=== PATIENT | female | born 1990 | race Caucasian/White ===

== ENCOUNTER 2016-11-26 13:04 | Outpatient (CLI) | payer MEDICAID ==
[~2016-11-26] VITALS: Ht 167.6 cm; Wt 63.7 kg
[~2016-11-26 13:04] MED LIST: ACHD5005 PO; ALPR1TAB2 PO; ARPZ10T; ASEN5TAB7 SL; AZIT-21 PO; AZTH250C PO; BENZ100C18 PO; BREA1EAC5 MC; BSP5T PO; CEFP250T2 PO; CEPH500C PO; CLAR-19 PO; CLIN-62 PO; CLIN300C11 PO; CLON0.5T3 PO; CLON1TAB3 PO; CLON1TAB36 PO; CLON2TAB16; CLON2TAB45 PO; CPH250CIP PO; CTLP20T PO; CYCL10TA9 PO; DCS100C PO; DICY10CA26 PO; DOXY100C2 PO; DULO30CA PO; DULO30CA48 PO; ESCI20TA38 PO; ESCI5TAB PO; FLUC150T PO; HYDR-1231 PO; HYDR-3720 PO; HYDR-3812 PO; HYDR-757 PO; HYDR1TAB PO; IBP800T PO; KETO75CA PO; LIDO15SO2 MM; LMT25T; LORA-405 PO; LURA20TA PO; META800T5 PO; METH4TAB PO; METR500T21 PO; MIRT30TA6 PO; NAPR-243 PO; NAPR500T3 PO; NAPR550T PO; NITR-65 PO; NITR100C3 PO; ONDA4TAB8 PO; PHEN-640 PO; PNV91TAB3 PO; PRAZ1CAP2 PO; PRD20T PO; PRED5TAB PO; PREN1TAB19 PO; QUET25TA33 PO; QUET300T3 PO; RSP3T PO; SULF1TAB35 PO; THR25T PO; TRAM-21 PO; TRAM50TA2 PO; TRM50T PO; ZLP10T PO; birth control patch
--- OUTSIDE RECORDS SUMMARY | 2016-11-26 13:07 | XMS REPORT | Continuity of Care Document ---
Author Author [facility] Organization [facility] Address Unknown Phone Unavailable Care Team Providers Care Land Surveyor Assistant Name Role Phone Unknown, Unknown PCP Unavailable Source Comments Some departments are not documenting in the electronic medical record. If you do not see the information that you expected, contact Release of Information in the Health Information Management department at [phone] for further assistance in locating additional records.[facility] Active Allergies and Adverse Reactions Not on File Current Medications Not on file Active Problems Not on file Social History Tobacco Use Types Packs/Day Years Used Date Never Assessed Plan of Care Health Maintenance Due Date Last Done Comments Physical (Comprehensive) 1997 Exam Hpv Vaccines (#1) 2001 Pertussis Vaccine 2001 Tetanus Vaccine 2007 Cervical Cancer Screening 2011 Influenza Vaccine 07/14/2016 Results from Last 3 Months Not on file
[2016-11-26 13:35] VITALS: BP 117/74
[2016-11-26 14:10] LABS: BASOPHILS % (AUTO) 0 % (0-10); EOSINOPHILS # (AUTO) 0.2 10^3/uL (0.0-0.3); EOSINOPHILS % (AUTO) 2 % (0-10); LYMPHOCYTES # (AUTO) 2.8 X 10^3 (1.0-4.0); LYMPHOCYTES % (AUTO) 20 % (12-44); MEAN CORPUSCULAR HEMOGLOBIN 30 PG (25-34); MEAN CORPUSCULAR HGB CONC 33 G/DL (32-36); MEAN CORPUSCULAR VOLUME 90 FL (80-99); MEAN PLATELET VOLUME 10.5 FL (7.4-10.4); MONOCYTES # (AUTO) 1.1 X 10^3 (0.0-1.0); MONOCYTES % (AUTO) 8 % (0-12); NEUTROPHILS # (AUTO) 9.7 X 10^3 (1.8-7.8); NEUTROPHILS % (AUTO) 70 % (42-75); PLATELET COUNT 301 10^3/uL (130-400); RED BLOOD COUNT 3.93 10^6/uL (4.35-5.85); RED CELL DISTRIBUTION WIDTH 13.7 % (10.0-14.5); WHITE BLOOD COUNT 13.8 10^3/uL (4.3-11.0)
[2016-11-26 14:22] LABS: ALANINE AMINOTRANSFERASE 9 U/L (0-55); ALBUMIN 3.4 G/DL (3.2-4.5); ANION GAP 11 MMOL/L (5-14); ASPARTATE AMINO TRANSFERASE 15 U/L (5-34); BILIRUBIN,TOTAL 0.4 MG/DL (0.1-1.0); BLOOD UREA NITROGEN 6 MG/DL (7-18); BUN/CREATININE RATIO 11; CALCIUM 8.9 MG/DL (8.5-10.1); CARBON DIOXIDE 21 MMOL/L (21-32); CHLORIDE 106 MMOL/L (98-107); CREATININE SERUM 0.56 MG/DL (0.60-1.30); GFR ESTIMATED > 60; GLUCOSE 104 MG/DL (70-105); POTASSIUM 3.7 MMOL/L (3.6-5.0); SODIUM 138 MMOL/L (135-145); TOTAL PROTEIN 6.1 G/DL (6.4-8.2)
--- NOTE | 2016-11-28 08:37 | Physician Query-Final Dx ---
VIC CUELLO 11/28/16 0837: Clinic Account Progress/Dx Physician Query: Please give diagnosis Date of Service Nov 26, 2016 at 13:04 JENNIFER MAYES MD 11/28/16 1145: Clinic Account Progress/Dx DIAGNOSIS: Diagnosis false labor VIC CUELLO Nov 28, 2016 08:37 JENNIFER MAYES MD Nov 28, 2016 11:45
[2016-11-30] MEDS ORDERED: ALPR0.5T7 PO (07:52)
[2016-11-30] MEDS ORDERED: OXYC-465 PO (07:52)
[2016-11-30] MEDS ORDERED: DOCU100C37 PO (07:52)
== END 2016-11-26 15:11 | disposition home or self-care (01) ==
LOC: WSo 13:04 → LDRP 13:04 → WSo 15:11
PROVIDERS: ATTEND Obstetrics & Gynecology
DX: O47.03 False labor before 37 completed weeks of gestation, third trimester (principal); Z3A.36 36 weeks gestation of pregnancy
CPT/HCPCS: 36415; 80053; 85025; 99213

== ENCOUNTER 2016-11-29 13:20 | Inpatient (IN) | payer MEDICAID ==
[~2016-11-29] VITALS: Ht 167.6 cm; Wt 64.4 kg
[2016-11-29] VITALS (31 sets, daily range): BP systolic 109–147; BP diastolic 58–86
[2016-11-29] MEDS: WITCH HAZEL(TUCKS) 40 EA JAR ONE (03:45)
--- OUTSIDE RECORDS SUMMARY | 2016-11-29 13:23 | XMS REPORT | Continuity of Care Document ---
Author Author [facility] Organization [facility] Address Unknown Phone Unavailable Care Team Providers Care Licensed Reactor Operator Name Role Phone Unknown, Unknown PCP Unavailable Source Comments Some departments are not documenting in the electronic medical record. If you do not see the information that you expected, contact Release of Information in the Health Information Management department at [phone] for further assistance in locating additional records.[facility] Active Allergies and Adverse Reactions Not [...]
[2016-11-29] MEDS ORDERED: RANI150T15 PO (13:44)
[2016-11-29] MEDS ORDERED: OXYTOCIN/NORMAL SALINE 500 ML IV SCH ×2 (16:59→17:02)
[2016-11-29] MEDS ORDERED: D5 LR IV SOLUTION 1,000 ML IV SCH (16:59)
[2016-11-29] MEDS ORDERED: metroNIDAZOLE 500 MG (FLAGYL) TAB PO NR (17:00)
--- NOTE | 2016-11-29 17:11 | History & Physical ---
History and Physical this patient is a 25-year-old white female with an EDC of 2 717 putting her at 37 weeks gestation. She presented with complaint of gushes of clear fluid. She denies bleeding. She was seen yesterday in clinic and found to be 3 cm dilated with an CLEVE of 75 previous delivery at 37 weeks gestation. She complains of contractions and increasing pressure. Her exam now is between 5 and 6 cm dilated 80 percent effaced +1 to +2 station vertex presentation with a firm positive vaginal prep nitrazine was negative. Patient had GBS culture after 35 weeks gestation that was negative. Allergies are to penicillin, Depakote, diclofenac Medications are vitamins and Zantac Past medical history, past surgical history, obstetric history, family histories , and social histories are per the antepartum record HEENT exam is normal except for very poor dentition Neck is supple no lymphadenopathy no thyromegaly Abdomen is gravid soft nontender nondistended Extremities show no clubbing cyanosis. There is no Homans sign. Pelvic exam reveals a greenish watery discharge in the vaginal vault. Fern prep of that discharge was positive for ferning. Test on admission per the nurse was a nitrazine negative. Was not repeated. Cervical exam is 5-6 and Ms. dilated 80 percent effaced +1 station to +2 station vertex presentation. Monitor shows irregular contractions with normal heart rate pattern Lab work is pending Assessment and plan 37 week with PROM admitted now for management. We will allow an epidural and augmented with Pitocin patient has made cervical change since presentation and since last exam yesterday. Anticipation is for vaginal delivery. PROM at 37 weeks gestation Allergies and Home Medications Allergies Coded Allergies: Penicillins (Unverified Allergy, Mild, PT ABLE TO TAKE ANCEF, 03/26/14) diclofenac (Unverified Allergy, Unknown, 01/21/15) divalproex sodium (Verified Allergy, Unknown, 08/26/15) Home Medications Pnv95/Ferrous Fumarate/FA 1 Each Tablet 1 EACH PO DAILY (Reported) Ranitidine HCl 150 Mg Tablet 150 MG PO DAILY (Reported) JENNIFER MAYES MD Nov 29, 2016 5:11 pm
[2016-11-29] MEDS ORDERED: MEASLES,MUMPS,RUBELLA 1 EA INJ SC ONE (17:15)
[2016-11-29] MEDS ORDERED: TETANUS,DIPTH,PERTUSS P/F (BOOSTRIX) 0.5 ML VIAL IM ONE (17:15)
[2016-11-29 17:31] LABS: BASOPHILS % (AUTO) 0 % (0-10); EOSINOPHILS # (AUTO) 0.2 10^3/uL (0.0-0.3); EOSINOPHILS % (AUTO) 2 % (0-10); LYMPHOCYTES # (AUTO) 3.6 X 10^3 (1.0-4.0); LYMPHOCYTES % (AUTO) 24 % (12-44); MEAN CORPUSCULAR HEMOGLOBIN 30 PG (25-34); MEAN CORPUSCULAR HGB CONC 34 G/DL (32-36); MEAN CORPUSCULAR VOLUME 89 FL (80-99); MEAN PLATELET VOLUME 10.7 FL (7.4-10.4); MONOCYTES # (AUTO) 1.3 X 10^3 (0.0-1.0); MONOCYTES % (AUTO) 9 % (0-12); NEUTROPHILS # (AUTO) 9.6 X 10^3 (1.8-7.8); NEUTROPHILS % (AUTO) 65 % (42-75); PLATELET COUNT 281 10^3/uL (130-400); RED BLOOD COUNT 3.87 10^6/uL (4.35-5.85); RED CELL DISTRIBUTION WIDTH 13.7 % (10.0-14.5); WHITE BLOOD COUNT 14.8 10^3/uL (4.3-11.0)
[2016-11-29 17:52] LABS: BAND NEUTROPHILS 1 %; BASOPHILS % (MANUAL) 0 %; EOSINOPHILS % (MANUAL) 4 %; LYMPHOCYTES % (MANUAL) 24 %; NEUTROPHILS % (MANUAL) 70 %
[2016-11-29] MEDS ORDERED: SUFENTA 1 MCG/ML BUPIVA 0.1% 100 ML ONE (17:52)
[2016-11-29] MEDS ORDERED: fentaNYL INJECTION 100 MCG/2 ML AMP ONE (18:16)
[2016-11-29] MEDS ORDERED: BUPIVACAINE 0.25% 30 ML (SENSORCAINE) VIAL ONE (18:17)
[2016-11-29] MEDS ORDERED: LACTATED RINGERS 1,000 ML IV ONE ×2 (18:42)
[2016-11-29] MEDS ORDERED: EPIDURAL (SUFENTANIL 1 MCG/ML BUPIVACAINE 0.1%) 100 ML EPI PRN (18:45)
[2016-11-29] MEDS ORDERED: ONDANSETRON 4 MG/2 ML (SDV) Z0FRAN IV PRN (18:45)
[2016-11-29] MEDS ORDERED: NALOXONE 0.4 MG/ML 1 ML (NARCAN) VIAL IV PRN (18:45)
[2016-11-29] MEDS ORDERED: fentaNYL INJECTION 100 MCG/2 ML AMP INJ ONE (18:45)
[2016-11-29] MEDS ORDERED: BUPIVACAINE 0.25% 30 ML (SENSORCAINE) VIAL INJ ONE (18:45)
[2016-11-29] MEDS: DOCUSATE SODIUM 100 MG (COLACE) CAP PO SCH (21:00)
[2016-11-29] MEDS ORDERED: LIDOCAINE/EPI 1%-1:200,000 (XYLOCAINE) 30 ML VIAL ONE (23:31)
[2016-11-30] VITALS (12 sets, daily range): BP systolic 102–125; BP diastolic 58–73
[2016-11-30] MEDS: oxyCODONE/APAP 10/325MG (PERCOCET 10) TABLET PO PRN ×4 (01:03→17:21)
[2016-11-30] MEDS: WITCH HAZEL(TUCKS) 40 EA JAR ONE (03:45)
[2016-11-30] MEDS: BENZOCAINE/MENTHOL (DERMOPLAST) 56 ML CAN TP PRN (03:45)
--- NOTE | 2016-11-30 07:50 | PROCEDURE REPORT ---
PROCEDURE PHYSICIAN: JENNIFER MAYES DATE OF PROCEDURE: 11/29/2016 DATE OF DICTATION: 11/29/2016 DELIVERY NOTE: The patient delivered by term spontaneous vaginal delivery of a viable female with Apgars of 10 and 10 at 1 and 5 minutes respectfully, weight 6 pounds, 8 ounces. Delivery time was 2342. The infant delivered over a midline episiotomy that was performed at the patient's request when the presenting part was and the patient could not push it through the perineum. Episiotomy was performed. The head delivered with the next push as did a loop of umbilical cord was a true knot. The infant was bulb suctioned on delivery of the head and again on completion of delivery. The umbilical cord, when pulseless, was doubly clamped, father cut the cord and the baby was passed to mom's abdomen. Umbilical cord blood was obtained. As the patient had experienced several deep Decels and there was a true knot noted in the cord at the time of delivery an umbilical cord arterial blood pH was obtained and was 7.27 The placenta delivered spontaneously Auguste. It was a quite large with a 3 vessel cord. There was a fairly significant amount of bleeding initially with the delivery of the placenta. That responded nicely to IV Pitocin and fundal massage. The cervix, vagina, rectum and perineum were examined and found intact except for the midline episiotomy that was repaired with a single suture of 3-0 Vicryl in the usual manner. Sponge and needle counts were correct on completion of delivery and repair. The mom remained in the LDR for the recovery as did the baby. The estimated blood loss was around 500 mL. The patient tolerated the procedure well. Job ID: [id number] Dictated Date: 11/30/2016 00:03:58 Housing Installer Date: 11/30/2016 07:47:21 / charis [place]
--- NOTE | 2016-11-30 07:51 | Progress Note-Standard ---
Standard Progress Note Progress Notes/Assess & Plan Progress/Assessment & Plan patient is without complaint except for anxiety. She is ambulating, voiding, tolerating by mouth well, denies chest pain, denies shortness of breath, denies nausea vomiting, denies headache, has good pain control. She is requesting to resume her antiviral anxiety medication Vital signs are stable. Patient is afebrile. Vital Signs Date Time Temp Pulse Resp B/P Pulse Ox O2 Delivery O2 Flow Rate FiO2 11/29/16 22:45 97 18 119/71 100 11/29/16 22:15 97 18 119/71 100 11/29/16 22:00 82 18 115/65 99 11/29/16 21:45 90 18 115/66 100 11/29/16 21:30 98.7 91 18 113/69 100 11/29/16 21:15 91 18 131/68 100 11/29/16 21:00 88 18 121/76 98 11/29/16 20:45 90 18 120/74 99 11/29/16 20:30 96 18 112/66 98 11/29/16 20:15 102 18 111/68 98 11/29/16 20:00 88 18 147/86 99 11/29/16 19:45 98.1 108 18 118/75 100 11/29/16 19:00 115 18 124/60 97 Room Air 11/29/16 18:56 107 122/64 97 Room Air 11/29/16 18:53 106 119/66 97 Room Air 11/29/16 18:50 101 114/62 98 Room Air 11/29/16 18:45 102 18 110/58 Room Air 11/29/16 18:43 102 110/58 98 Room Air 11/29/16 18:40 109 18 112/60 98 Room Air 11/29/16 18:35 95 18 123/70 98 Room Air 11/29/16 18:30 105 18 119/77 Room Air 11/29/16 18:00 105 18 109/63 Room Air 11/29/16 17:30 97.4 11/29/16 14:30 106 117/68 Room Air 11/29/16 14:20 112 116/66 Room Air 11/29/16 14:10 120 116/65 Room Air 11/29/16 14:00 112 121/64 Room Air 11/29/16 13:38 96.7 127 18 119/70 Room Air I & O 11/30/16 07:00 Intake Total 900 ml Balance 900 ml fundus is firm below the umbilicus and nontender. Extremities show no clubbing or cyanosis. There is no Homans sign. Assessment and plan day number 1 status post term spontaneous vaginal delivery at 37 weeks gestation. Patient has a history of anxiety for which she was taking 1 mg of Xanax every 8 hours. We will resume her Xanax at half that dose. Patient will receive routine post convalescence care today and likely will be discharged home tomorrow JENNIFER MAYES MD Nov 30, 2016 7:51 am
[2016-11-30] MEDS ORDERED: OXYC-465 PO (07:52)
[2016-11-30] MEDS ORDERED: ALPR0.5T7 PO (07:52)
[2016-11-30] MEDS ORDERED: DOCU100C37 PO (07:52)
--- NOTE | 2016-11-30 07:53 | Discharge Instructions ---
Discharge Instructions Discharge Medications New, Converted or Re-Newed RX: RX on Chart Patient Instructions Patient Instructions: as directed Return to The Hospital For: as directed Activity & Diet Discharge Diet: No Restrictions Activity as Tolerated: No Orders-Post D/C & Referrals Follow Up Appt: Call to make follow up appt. for patient in 4 weeks. Activity Per routine post vaginal delivery instructions. Please call in RX to patient pharmacy. Diet as tolerated Patient may shower or tub bathe as desired. JENNIFER MAYES MD Nov 30, 2016 7:53 am
[2016-11-30] MEDS: DOCUSATE SODIUM 100 MG (COLACE) CAP PO SCH ×2 (08:34→21:51)
[2016-11-30] MEDS: ALPRAZolam 0.5 MG (XANAX) TAB PO PRN ×2 (09:51→18:47)
--- NOTE | 2016-11-30 10:55 | Anesthesia-Regional Post-Op ---
Regional Patient Condition Mental Status: Alert, Oriented x3 Circulation: Same as Pre-Op Headache: Absent Sensation: Full Recovery Motor Block: Absent Post Op Complications Complications None Follow Up Care/Instructions Patient Instructions None needed. Anesthesia/Patient Condition Patient is doing well, no complaints, stable vital signs, no apparent adverse anesthesia problems. No complications reported per nursing. DAGMAR MAY CRNA Nov 30, 2016 10:55
[2016-12-01] MEDS: oxyCODONE/APAP 10/325MG (PERCOCET 10) TABLET PO PRN ×2 (02:34→11:15)
[2016-12-01 03:30] VITALS: BP 99/58
--- NOTE | 2016-12-01 07:49 | Progress Note-Standard ---
Standard Progress Note Progress Notes/Assess & Plan Progress/Assessment & Plan patient is without complaint except for anxiety. She is ambulating, voiding, tolerating by mouth well, denies chest pain, denies shortness of breath, denies nausea vomiting, denies headache, has good pain control. She is requesting to resume her antiviral anxiety medication Vital signs are stable. Patient is afebrile. Vital Signs Date Time Temp Pulse Resp B/P Pulse Ox O2 Delivery O2 Flow Rate FiO2 11/29/16 22:45 97 18 119/71 100 11/29/16 22:15 97 18 119/71 100 11/29/16 22:00 82 18 115/65 99 11/29/16 21:45 90 18 115/66 100 11/29/16 21:30 98.7 91 18 113/69 100 11/29/16 21:15 91 18 131/68 100 11/29/16 21:00 88 18 121/76 98 11/29/16 20:45 90 18 120/74 99 11/29/16 20:30 96 18 112/66 98 11/29/16 20:15 102 18 111/68 98 11/29/16 20:00 88 18 147/86 99 11/29/16 19:45 98.1 108 18 118/75 100 11/29/16 19:00 115 18 124/60 97 Room Air 11/29/16 18:56 107 122/64 97 Room Air 11/29/16 18:53 106 119/66 97 Room Air 11/29/16 18:50 101 114/62 98 Room Air 11/29/16 18:45 102 18 110/58 Room Air 11/29/16 18:43 102 110/58 98 Room Air 11/29/16 18:40 109 18 112/60 98 Room Air 11/29/16 18:35 95 18 123/70 98 Room Air 11/29/16 18:30 105 18 119/77 Room Air 11/29/16 18:00 105 18 109/63 Room Air 11/29/16 17:30 97.4 11/29/16 14:30 106 117/68 Room Air 11/29/16 14:20 112 116/66 Room Air 11/29/16 14:10 120 116/65 Room Air 11/29/16 14:00 112 121/64 Room Air 11/29/16 13:38 96.7 127 18 119/70 Room Air I & O 11/30/16 07:00 Intake Total 900 ml Balance 900 ml fundus is firm below the umbilicus and nontender. Extremities show no clubbing or cyanosis. There is no Homans sign. Assessment and plan day number 1 status post term spontaneous vaginal delivery at 37 weeks gestation. Patient has a history of anxiety for which she was taking 1 mg of Xanax every 8 hours. We will resume her Xanax at half that dose. Patient will receive routine post convalescence care today and likely will be discharged home tomorrow December 01, 2016 Patient is without complaint. She is ambulating,Voiding, tolerating by mouth well, denies chest pain, denies shortness of breath, denies nausea vomiting, indicates that her anxiety is well controlled with her Xanax, she has good pain control, she is requesting discharge home. Vital Signs Date Time Temp Pulse Resp B/P Pulse Ox O2 Delivery O2 Flow Rate FiO2 12/01/16 03:30 96.9 87 16 99/58 98 Room Air 11/30/16 21:30 97.0 97 16 102/67 Room Air 11/30/16 16:20 97.8 90 16 113/73 Room Air 11/30/16 12:55 97.9 81 16 102/71 Room Air 11/30/16 08:15 97.6 87 16 108/68 Room Air Vital signs are stable. Patient is afebrile. Fundus is firm below the umbilicus and nontender. Extremities show no clubbing or cyanosis. There is no Homans sign. There is some pretibial pitting edema that is normal. Assessment and plan day number 2 status post term spontaneous vaginal delivery at 37 weeks gestation. Patient is doing well. We will discharge home and she will follow-up in clinic Final Diagnosis term spontaneous vaginal delivery at 37 weeks gestation JENNIFER MAYES MD Dec 01, 2016 7:49 am
[2016-12-01] MEDS: ALPRAZolam 0.5 MG (XANAX) TAB PO PRN (08:24)
[2016-12-01] MEDS: DOCUSATE SODIUM 100 MG (COLACE) CAP PO SCH (08:24)
[2016-12-01 08:26] VITALS: BP 107/74
[2016-12-01] MEDS ORDERED: TETANUS,DIPTH,PERTUSS P/F (BOOSTRIX) 0.5 ML VIAL IM ONE (12:02)
[2016-12-01] MEDS: BENZOCAINE/MENTHOL (DERMOPLAST) 56 ML CAN TP PRN (12:13)
[2017-01-10] MEDS ORDERED: DOCU100C37 PO (07:19)
[2017-01-10] MEDS ORDERED: OXYC-465 PO (07:19)
[2017-01-10] MEDS ORDERED: IBUP-1780 PO (07:19)
== END 2016-12-01 13:30 | disposition home or self-care (01) | DRG 775 ==
LOC: LDRP 13:20 → WSo 13:20 → LDRP 17:45 → WSo 17:45 → LDRP 11-30 02:25
PROVIDERS: ADMIT Obstetrics & Gynecology; ATTEND Obstetrics & Gynecology
PROC: 10E0XZZ Delivery of Products of Conception, External Approach (ICD-10-PCS; principal; 2016-11-29)
PROC: 0W8NXZZ Division of Female Perineum, External Approach (ICD-10-PCS; 2016-11-29)
DX: O69.2XX0 Labor and delivery complicated by other cord entanglement, with compression, not applicable or unspecified (principal); O76 Abnormality in fetal heart rate and rhythm complicating labor and delivery; O99.343 Other mental disorders complicating pregnancy, third trimester; F41.9 Anxiety disorder, unspecified; Z3A.37 37 weeks gestation of pregnancy; Z37.0 Single live birth; Z23 Encounter for immunization
CPT/HCPCS: 36415; 85007; 85027; 86850; 86900; 86901; 87210; 90715; 99212

== ENCOUNTER 2016-12-02 10:45 | Emergency (ER) | payer MEDICAID ==
[~2016-12-02] VITALS: Ht 167.6 cm; Wt 59.9 kg
[~2016-12-02 10:45] MED LIST changes: +ALPR0.5T7 PO; +DOCU100C37 PO; +OXYC-465 PO; +RANI150T15 PO
--- OUTSIDE RECORDS SUMMARY | 2016-12-02 10:51 | XMS REPORT | Continuity of Care Document ---
Author Author [facility] Organization [facility] Address Unknown Phone Unavailable Care Team Providers Care Helper Maintenance Cleaning Name Role Phone Unknown, Unknown PCP Unavailable Source Comments Some departments are not documenting in the electronic medical record. If you do not see the information that you expected, contact Release of Information in the Health Information Management department at [phone] for further assistance in locating additional records.[facility] Active Allergies and Adverse Reactions Not [...]
[2016-12-02] MEDS ORDERED: NS IV 1000 ML 1,000 ML IV ONE ×2 (11:17→12:28)
--- NOTE | 2016-12-02 11:17 | ED Cardiac General ---
History of Present Illness General Chief Complaint: Cardiac/General Problems Stated Complaint: PALPITATIONS/BLURRY VISION Nursing Triage Note: PT CO OF HEART PALPATIONS AND WEAKNESS SINCE LAST PM, PT DENIES FEVER OR HEAVY BLEEDING AT THIS X. PT STATES HAS NOT SLEPT MUCH SINCE OF CHILD ON 11/29/16. 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 CHILD BORN VAGINNALY Source: patient, spouse Exam Limitations: no limitations History of Present Illness Time seen by provider: 11:17 Initial Comments 26 yo female patient presents to the ED with c/o heart palpitations, occasional blurry vision, and generalized weakness/fatigue since last noc. Patient reports nausea intermittently since giving in 11/29/16. Patient reports a vaginal delivery without complications. Denies preeclampsia or gestational diabetes. Denies heavy vaginal bleeding. Patient reports she has not slept much since delivering the baby. reports patient was not sleeping well prior to giving . Patient states she has been under increased stress as she feels like she is neglecting her 2-year-old by not spending enough time with him due to the baby. States she is not breast feeding. Timing/Duration: 12-24 hours Location: other (denies pain) Activities at Onset: none Prior CP/Workup: no prior chest pain, no prior cardiac workup Modifying Factors: improves with other (patient reports episodes are self limited and occur intermittently. not related to activity.) NTG SL CENTRAL SERVICE SUPPLY DISTRIBUTOR: No ASA po CENTRAL SERVICE SUPPLY DISTRIBUTOR: No Allergies and Home Medications Allergies Coded Allergies: Penicillins (Unverified Allergy, Mild, PT ABLE TO TAKE ANCEF, 03/26/14) diclofenac (Unverified Allergy, Unknown, 01/21/15) divalproex sodium (Verified Allergy, Unknown, 08/26/15) Home Medications Alprazolam 0.5 Mg Tablet #90 0.5 MG PO Q8H PRN PRN ANXIETY Prescribed by: JENNIFER HILL on 11/30/16 075 Docusate Sodium 100 Mg Capsule #60 100 MG PO BID Prescribed by: JENNIFER HILL on 11/30/16 075 Oxycodone HCl/Acetaminophen 1 Each Tablet #60 1-2 TAB PO Q4H PRN PRN PAIN Prescribed by: JENNIFER HILL on 11/30/16 075 Pnv95/Ferrous Fumarate/FA 1 Each Tablet 1 EACH PO DAILY (Reported) Ranitidine HCl 150 Mg Tablet 150 MG PO DAILY (Reported) Review of Systems Constitutional: see HPINo diaphoresis, No dizziness, No fever, malaise weakness other (fatigue) EENTM: Blurred VisionNo Double Vision, No Eye Pain, No Ear Pain, No Mouth Pain , No Nose Congestion, No Throat Pain Respiratory: Denies Cough, Denies Orthopnea, Denies Shortness of Air, Denies SOA With Exertion Cardiovascular: Denies Chest Pain, Denies Edema, Denies Irregular Heart Rate, Denies Lightheadedness, PalpitationsDenies Syncope Gastrointestinal: See HPIDenies Abdomen Distended, Denies Abdominal Pain, Denies Constipated, Denies Diarrhea, NauseaDenies Poor Appetite, Denies Poor Fluid Intake, Denies Vomiting Genitourinary: Denies Burning, Denies Discharge, Denies Frequency, Denies Flank Pain, Denies Hematuria, Denies Pain Musculoskeletal: no symptoms reported Skin: no symptoms reported Psychiatric/Neurological: See HPIDenies Headache, Denies Numbness, Denies Paresthesia, Denies Seizure, Denies Tingling, Denies Weakness All Other Systems Reviewed Negative Unless Noted: Yes (Negative excepted noted.) Past Rsueqxk-Hdwtou-Siyrsn Hx Patient Social History Alcohol Use: Denies Use Recreational Drug Use: No Smoking Status: Current Everyday Smoker Type Used: Cigarettes Recent Foreign Travel: No Contact w/Someone Who Travel: No Recent Infectious Disease Expo: No Recent Hopitalizations: Yes (DELIVERY OF BABY ) Physical Abuse Screen: No Sexual Abuse: No Immunizations Up To Date Tetanus Booster (TDap): Less than 5yrs PED Vaccines UTD: Yes Date of Influenza Vaccine: Aug 30, 2016 Seasonal Allergies Seasonal Allergies: No Surgeries HX Surgeries: Yes (LAPAROTOMY) Surgeries: Abdominal, Tonsillectomy Respiratory Hx Respiratory Disorders: Yes Respiratory Disorders: Asthma Cardiovascular Hx Cardiac Disorders: Yes (Hx. 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 Genitourinary Hx Genitourinary Disorders: No Gastrointestinal Hx Gastrointestinal Disorders: No Musculoskeletal Hx Musculoskeletal Disorders: Yes (ALL REPORTED BY PT) Musculoskeletal Disorders: Back Injury, Scoliosis, Chronic Back Pain Endocrine Hx Endocrine Disorders: No HEENT HX ENT Disorders: Yes (POOR DENTITION/ CHRONIC DENTAL ISSUES) Cancer Hx Cancer: No Psychosocial Hx Psychiatric Problems: Yes Behavioral Health Disorders: Anxiety, Bipolar, Depression Integumentary HX Skin/Integumentary Disorder: No Blood Transfusions Hx Blood Disorders: No Adverse Reaction to a Blood Tr: No Reviewed Nursing Assessment Reviewed/Agree w Nursing PMH: Yes Family Medical History Significant Family History: No Pertinent Family Hx Family Medial History: Family history: Hypertension Heart disease History of - anemia Infertile Kidney disease Physical Exam Vital Signs Vital Sign - Last 12Hours 12/02/16 10:50 Temp 97.6 Pulse 103 Resp 17 B/P 84/ Pulse Ox 97 O2 Flow Rate 123 Capillary Refill : Less Than 3 Seconds General Appearance: No Apparent Distress WD/WN HEENT: PERRL/EOMI TMs Normal Normal ENT Inspection Pharynx Normal Other (oral mucosa slightly dry. 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 Norm as Tested Skin: Normal Color Warm/Dry Progress/Results/Core Measures Results/Orders Lab Results Laboratory Tests Test 12/02/16 10:55 12/02/16 13:00 Range/Units Alanine Aminotransferase (ALT/SGPT) 11 0-55 U/L Albumin 3.1 L 3.2-4.5 G/DL Alkaline Phosphatase 128 40-136 U/L Anion Gap 8 5-14 MMOL/L Aspartate Amino Transf (AST/SGOT) 22 5-34 U/L BUN/Creatinine Ratio 14 Basophils # (Auto) 0.0 0.0-0.1 10^3/uL Basophils (%) (Auto) 0 0-10 % Blood Urea Nitrogen 8 7-18 MG/DL Calcium Level 8.6 8.5-10.1 MG/DL Carbon Dioxide Level 23 21-32 MMOL/L Chloride Level 106 98-107 MMOL/L Creatinine 0.59 L 0.60-1.30 MG/DL Eosinophils # (Auto) 0.3 0.0-0.3 10^3/uL Eosinophils (%) (Auto) 2 0-10 % Estimat Glomerular Filtration Rate > 60 Glucose Level 75 70-105 MG/DL Hematocrit 34 L 35-52 % Hemoglobin 11.4 L 11.5-16.0 G/DL Lymphocytes # (Auto) 3.2 1.0-4.0 X 10^3 Lymphocytes (%) (Auto) 24 12-44 % Magnesium Level 1.7 L 1.8-2.4 MG/DL Mean Corpuscular Hemoglobin 30 25-34 PG Mean Corpuscular Hemoglobin Concent 34 32-36 G/DL Mean Corpuscular Volume 89 80-99 FL Mean Platelet Volume 10.3 7.4-10.4 FL Monocytes # (Auto) 1.5 H 0.0-1.0 X 10^3 Monocytes (%) (Auto) 11 0-12 % Neutrophils # (Auto) 8.7 H 1.8-7.8 X 10^3 Neutrophils (%) (Auto) 64 42-75 % Platelet Count 295 130-400 10^3/uL Potassium Level 3.7 3.6-5.0 MMOL/L Red Blood Count 3.78 L 4.35-5.85 10^6/uL Red Cell Distribution Width 13.7 10.0-14.5 % Serum Alcohol < 10 <10 MG/DL Sodium Level 137 135-145 MMOL/L TSH [place] Testing 2.16 0.35-4.94 UIU/ML Total Bilirubin 0.2 0.1-1.0 MG/DL Total Protein 6.0 L 6.4-8.2 G/DL Troponin I < 0.30 <0.30 NG/ML White Blood Count 13.8 H 4.3-11.0 10^3/uL Ur Tricyclic Antidepressants Screen NEGATIVE NEGATIVE Urine Amphetamines Screen NEGATIVE NEGATIVE Urine Bacteria NEGATIVE /HPF Urine Barbiturates Screen NEGATIVE NEGATIVE Urine Benzodiazepines Screen POSITIVE H NEGATIVE Urine Bilirubin NEGATIVE NEGATIVE Urine Cannabinoids Screen NEGATIVE NEGATIVE Urine Casts NONE /LPF Urine Clarity CLEAR Urine Cocaine Screen NEGATIVE NEGATIVE Urine Color YELLOW Urine Crystals NONE /LPF Urine Culture Indicated NO Urine Glucose (UA) NEGATIVE NEGATIVE Urine Ketones NEGATIVE NEGATIVE Urine Leukocyte Esterase NEGATIVE NEGATIVE Urine Methadone Screen NEGATIVE NEGATIVE Urine Methamphetamines Screen NEGATIVE NEGATIVE Urine Mucus NEGATIVE /LPF Urine Nitrite NEGATIVE NEGATIVE Urine Opiates Screen NEGATIVE NEGATIVE Urine Oxycodone Screen POSITIVE H NEGATIVE Urine Phencyclidine Screen NEGATIVE NEGATIVE Urine Propoxyphene Screen NEGATIVE NEGATIVE Urine Protein NEGATIVE NEGATIVE Urine RBC NONE /HPF Urine RBC (Auto) NEGATIVE NEGATIVE Urine Specific [place] 1.005 L 1.016-1.022 Urine Squamous Epithelial Cells 0-2 /HPF Urine Urobilinogen NORMAL NORMAL MG/DL Urine WBC NONE /HPF Urine pH 7 5-9 My Orders Orders-SUNITA TIRADO L PA Saline Lock/Iv-Start (12/02/16 11:17) Ekg Tracing (12/02/16 11:17) Monitor-Rhythm Ecg Trace Only (12/02/16 11:17) Alcohol (12/02/16 11:17) Cbc With Automated Diff (12/02/16 11:17) Comprehensive Metabolic Panel (12/02/16 11:17) Drug Screen Stat (Urine) (12/02/16 11:17) Magnesium (12/02/16 11:17) Thyroid Analyzer (12/02/16 11:17) Troponin I (12/02/16 11:17) Ua Culture If Indicated (12/02/16 11:17) Chest 1 View, Ap/Pa Only (12/02/16 11:17) Ns Iv 1000 Ml (Sodium Chloride 0.9%) (12/02/16 11:17) Ns Iv 1000 Ml (Sodium Chloride 0.9%) (12/02/16 12:28) Medications Given in ED Current Medications Medications Dose Ordered Sig/Antonia Route Start Time Stop Time Status Last Admin Dose Admin Sodium Chloride 1,000 ml @ 0 mls/hr Q0M ONCE IV 12/02/16 11:17 12/02/16 11:18 DC 12/02/16 12:05 1,000 MLS/HR Vital Signs/I&O Vital Sign - Last 12Hours 12/02/16 12/02/16 10:50 14:00 Temp 97.6 97.0 Pulse 103 97 Resp 17 B/P 84/ Pulse Ox 97 97 O2 Flow Rate 123 ECG Initial ECG Impression Date: Dec 02, 2016 Initial ECG Impression Time: 11:07 Initial ECG Rate: 99 Initial ECG Rhythm: Normal Sinus Initial ECG Intervals: Normal Initial ECG Impression: Normal Comment Sinus rhythm. No STEMI. ECG reviewed by Dr. Caldwell. Diagnostic Imaging Diagonstic Imaging: Xray Plain Films/CT/US/NM/MRI: chest Comments Findings: No focal airspace disease in the visualized lungs. Please note that the posterior lower lobes are poorly evaluated by portable radiography. No pleural effusion or pneumothorax. Normal cardiomediastinal silhouette. Impression: No acute cardiopulmonary process by portable radiography. Dictated by: Dictated on workstation # [id number] Reviewed: Reviewed by Me (radiology report reviewed) Departure Communication Progress Notes [id number] laboratory and diagnostic findings discussed with the patient. Patient reports feeling much better after IV fluids and resting in the emergency department. Patient is alert and oriented 3, no acute distress. Plan for discharge to home with follow-up as an outpatient with Dr. Kumar. All return precautions were discussed with the patient as described in the discharge instructions of this report. Patient voices understanding and agrees with the treatment plan. Patient case discussed with Davi Caldwell MD. He agrees with the plan of care. Impression Impression: Primary Impression: Sleep deprivation Additional Impressions: Volume depletion state Disposition: 01 HOME, SELF-CARE Condition: Improved Departure-Patient Inst. Decision time for Depature: 13:40 Referrals: [facility] (PCP/Family) Primary Care Physician Patient Instructions: Tips for Getting Better Sleep Add. Discharge Instructions: All discharge instructions reviewed with patient and/or family. Voiced understanding. Continue usual home medications. Drink plenty of fluids. Take naps through the daytime when someone is available to help you with the children. Follow-up with Dr. Kumar's outpatient for recheck. Call for appointment time. Return to the emergency department for worsened palpitations , dizziness, vomiting, changes in behavior, abdominal pain, chest pain, shortness of air, or any other concerns. SUNITA TIRADO Dec 02, 2016 11:17
[2016-12-02 11:23] LABS: BASOPHILS % (AUTO) 0 % (0-10); EOSINOPHILS # (AUTO) 0.3 10^3/uL (0.0-0.3); EOSINOPHILS % (AUTO) 2 % (0-10); LYMPHOCYTES # (AUTO) 3.2 X 10^3 (1.0-4.0); LYMPHOCYTES % (AUTO) 24 % (12-44); MEAN CORPUSCULAR HEMOGLOBIN 30 PG (25-34); MEAN CORPUSCULAR HGB CONC 34 G/DL (32-36); MEAN CORPUSCULAR VOLUME 89 FL (80-99); MEAN PLATELET VOLUME 10.3 FL (7.4-10.4); MONOCYTES # (AUTO) 1.5 X 10^3 (0.0-1.0); MONOCYTES % (AUTO) 11 % (0-12); NEUTROPHILS # (AUTO) 8.7 X 10^3 (1.8-7.8); NEUTROPHILS % (AUTO) 64 % (42-75); PLATELET COUNT 295 10^3/uL (130-400); RED BLOOD COUNT 3.78 10^6/uL (4.35-5.85); RED CELL DISTRIBUTION WIDTH 13.7 % (10.0-14.5); WHITE BLOOD COUNT 13.8 10^3/uL (4.3-11.0)
[2016-12-02 11:35] LABS: ALANINE AMINOTRANSFERASE 11 U/L (0-55); ALBUMIN 3.1 G/DL (3.2-4.5); ANION GAP 8 MMOL/L (5-14); ASPARTATE AMINO TRANSFERASE 22 U/L (5-34); BILIRUBIN,TOTAL 0.2 MG/DL (0.1-1.0); BLOOD UREA NITROGEN 8 MG/DL (7-18); BUN/CREATININE RATIO 14; CALCIUM 8.6 MG/DL (8.5-10.1); CARBON DIOXIDE 23 MMOL/L (21-32); CHLORIDE 106 MMOL/L (98-107); CREATININE SERUM 0.59 MG/DL (0.60-1.30); GFR ESTIMATED > 60; GLUCOSE 75 MG/DL (70-105); MAGNESIUM 1.7 MG/DL (1.8-2.4); POTASSIUM 3.7 MMOL/L (3.6-5.0); SODIUM 137 MMOL/L (135-145)
[2016-12-02 11:38] LABS: ALCOHOL < 10 MG/DL (<10)
[2016-12-02 11:54] LABS: TROPONIN I < 0.30 NG/ML (<0.30)
--- NOTE | 2016-12-02 12:14 | Diagnostic Imaging Report ---
CHEST 1 VIEW, AP/PA ONLY Indication: Heart palpitations. Comparison: 03/24/2016 Findings: No focal airspace disease in the visualized lungs. Please note that the posterior lower lobes are poorly evaluated by portable radiography. No pleural effusion or pneumothorax. Normal cardiomediastinal silhouette. Impression: No acute cardiopulmonary process by portable radiography. Dictated by: Dictated on workstation # [id number]
[2016-12-02 13:10] LABS: BILIRUBIN,URINE NEGATIVE (NEGATIVE); KETONES,URINE NEGATIVE (NEGATIVE); LEUKOCYTE ESTERASE ,URINE NEGATIVE (NEGATIVE); NITRITE,URINE NEGATIVE (NEGATIVE); PH,URINE 7 (5-9); PROTEIN,URINE NEGATIVE (NEGATIVE); UROBILINOGEN,URINE NORMAL (NORMAL)
[2016-12-02 13:25] LABS: SQUAMOUS EPITHELIAL CELL,UR 0-2 /HPF
[2016-12-02 14:00] VITALS: BP 115/76
[2017-01-10] MEDS ORDERED: DOCU100C37 PO (07:19)
[2017-01-10] MEDS ORDERED: OXYC-465 PO (07:19)
[2017-01-10] MEDS ORDERED: IBUP-1780 PO (07:19)
== END 2016-12-02 14:00 | disposition home or self-care (01) ==
LOC: EDUNIT# 10:45 → ER 10:48
DX: O99.89 Other specified diseases and conditions complicating pregnancy, childbirth and the puerperium (principal); E86.9 Volume depletion, unspecified; Z72.820 Sleep deprivation; K02.9 Dental caries, unspecified; F17.210 Nicotine dependence, cigarettes, uncomplicated
CPT/HCPCS: 36415; 71010; 80053; 80306; 80320; 81000; 83735; 84443; 84484; 85025; 93005; 96360

== ENCOUNTER 2016-12-16 00:56 | Emergency (ER) | payer MEDICAID ==
[~2016-12-16] VITALS: Ht 167.6 cm; Wt 59.9 kg
--- OUTSIDE RECORDS SUMMARY | 2016-12-16 01:04 | XMS REPORT | Continuity of Care Document ---
Author Author [facility] Organization [facility] Address Unknown Phone Unavailable Care Team Providers Care Editor City Name Role Phone Unknown, Unknown PCP Unavailable Source Comments Some departments are not documenting in the electronic medical record. If you do not see the information that you expected, contact Release of Information in the Health Information Management department at [phone] for further assistance in locating additional records.[facility] Active Allergies and Adverse Reactions Not [...]
[2016-12-16] MEDS ORDERED: NS IV 1000 ML 1,000 ML IV ONE (01:08)
[2016-12-16] MEDS ORDERED: ONDANSETRON 4 MG/2 ML (SDV) Z0FRAN IVP ONE (01:15)
[2016-12-16 01:33] LABS: BASOPHILS % (AUTO) 0 % (0-10); EOSINOPHILS # (AUTO) 0.4 10^3/uL (0.0-0.3); EOSINOPHILS % (AUTO) 6 % (0-10); LYMPHOCYTES # (AUTO) 2.6 X 10^3 (1.0-4.0); LYMPHOCYTES % (AUTO) 39 % (12-44); MEAN CORPUSCULAR HEMOGLOBIN 30 PG (25-34); MEAN CORPUSCULAR HGB CONC 33 G/DL (32-36); MEAN CORPUSCULAR VOLUME 91 FL (80-99); MEAN PLATELET VOLUME 9.7 FL (7.4-10.4); MONOCYTES # (AUTO) 0.7 X 10^3 (0.0-1.0); MONOCYTES % (AUTO) 11 % (0-12); NEUTROPHILS # (AUTO) 2.9 X 10^3 (1.8-7.8); NEUTROPHILS % (AUTO) 44 % (42-75); PLATELET COUNT 395 10^3/uL (130-400); RED BLOOD COUNT 4.19 10^6/uL (4.35-5.85); RED CELL DISTRIBUTION WIDTH 13.7 % (10.0-14.5); WHITE BLOOD COUNT 6.7 10^3/uL (4.3-11.0)
[2016-12-16 01:59] LABS: ALANINE AMINOTRANSFERASE 12 U/L (0-55); ALBUMIN 3.9 G/DL (3.2-4.5); ANION GAP 10 MMOL/L (5-14); ASPARTATE AMINO TRANSFERASE 18 U/L (5-34); BILIRUBIN,TOTAL 0.3 MG/DL (0.1-1.0); BLOOD UREA NITROGEN 9 MG/DL (7-18); BUN/CREATININE RATIO 12; CALCIUM 8.9 MG/DL (8.5-10.1); CARBON DIOXIDE 21 MMOL/L (21-32); CHLORIDE 107 MMOL/L (98-107); CREATININE SERUM 0.77 MG/DL (0.60-1.30); GFR ESTIMATED > 60; GLUCOSE 94 MG/DL (70-105); POTASSIUM 4.1 MMOL/L (3.6-5.0); SODIUM 138 MMOL/L (135-145); TOTAL PROTEIN 6.5 G/DL (6.4-8.2); hs C REACTIVE PROTEIN 0.16 MG/DL (0.00-0.50)
[2016-12-16 02:05] LABS: BILIRUBIN,URINE NEGATIVE (NEGATIVE); KETONES,URINE NEGATIVE (NEGATIVE); LEUKOCYTE ESTERASE ,URINE 2+ (NEGATIVE); NITRITE,URINE NEGATIVE (NEGATIVE); PH,URINE 7 (5-9); PROTEIN,URINE 1+ (NEGATIVE); UROBILINOGEN,URINE 1 MG/DL (NORMAL)
--- NOTE | 2016-12-16 02:42 | ED General ---
General Chief Complaint: General Problems/Pain Stated Complaint: NAUSEA,FEVER,HAD BABY ON 11-29-16 Nursing Triage Note: Pt reports general malaise feeling and tiredness. Pt reports an increase in gen weakness. Nursing Sepsis Screen: No Definite Risk Source of Information: Patient Exam Limitations: No Limitations History of Present Illness Time Seen by Provider: 00:59 Initial Comments This 26-year-old woman presents to the emergency room with symptoms of lightheadedness, nausea, generalized weakness, excessive sleep, reported episodes of slurred speech, subjective fever, myalgia, shakes, and neck discomfort. She is from a vaginal delivery on November 29. She is presently on Cipro and Flagyl for an infection, presumably endometritis or metritis based on her description. Dr. Kumar is her eyeglass frame truer. She admits to depression and is to see her behavioral health provider soon for this. She also recently restarted anxiolytics after being off of them for about a year. She is concurrently taking narcotics for pain. Allergies and Home Medications Allergies Coded Allergies: Penicillins (Unverified Allergy, Mild, PT ABLE TO TAKE ANCEF, 03/26/14) diclofenac (Unverified Allergy, Unknown, 01/21/15) divalproex sodium (Verified Allergy, Unknown, 08/26/15) Home Medications Alprazolam 0.5 Mg Tablet #90 0.5 MG PO Q8H PRN PRN ANXIETY Prescribed by: JENNIFER HILL on 11/30/16 075 Docusate Sodium 100 Mg Capsule #60 100 MG PO BID Prescribed by: JENNIFER HILL on 11/30/16 075 Ondansetron 4 Mg Tab.rapdis #10 4 MG SL Q4H Prescribed by: CALVIN LAMBERT on 12/16/16 0246 Oxycodone HCl/Acetaminophen 1 Each Tablet #60 1-2 TAB PO Q4H PRN PRN PAIN Prescribed by: JENNIFER HILL on 11/30/16 0752 Pnv95/Ferrous Fumarate/FA 1 Each Tablet 1 EACH PO DAILY (Reported) Ranitidine HCl 150 Mg Tablet 150 MG PO DAILY (Reported) Constitutional: no symptoms reported see HPI EENTM: no symptoms reported Respiratory: no symptoms reported Cardiovascular: no symptoms reported Gastrointestinal: see HPI Genitourinary: see HPI : No Musculoskeletal: no symptoms reported Skin: no symptoms reported Psychiatric/Neurological: See HPI Hematologic/Lymphatic: No Symptoms Reported Past Lnlwvmu-Abmrif-Owibcp Hx Patient Social History Alcohol Use: Denies Use Recreational Drug Use: No Smoking Status: Current Everyday Smoker Type Used: Cigarettes Recent Foreign Travel: No Contact w/Someone Who Travel: No Recent Infectious Disease Expo: No Recent Hopitalizations: Yes (DELIVERY OF BABY ) Immunizations Up To Date Tetanus Booster (TDap): Less than 5yrs PED Vaccines UTD: Yes Date of Influenza Vaccine: Aug 30, 2016 Seasonal Allergies Seasonal Allergies: No Surgeries HX Surgeries: Yes (LAPAROTOMY) Surgeries: Abdominal, Tonsillectomy Respiratory Hx Respiratory Disorders: Yes Respiratory Disorders: Asthma Cardiovascular Hx Cardiac Disorders: Yes (Hx. of SVT) Cardiac Disorders: Irregular Heartbeat, Palpitations Neurological Hx Neurological Disorders: No Reproductive System Hx Reproductive Disorders: Yes Sexually Transmitted Disease: No HIV/AIDS: No Female Reproductive Disorders: Endometriosis, Ovarian Cyst, Polycystic Ovarian Dis Genitourinary Hx Genitourinary Disorders: No Gastrointestinal Hx Gastrointestinal Disorders: No Musculoskeletal Hx Musculoskeletal Disorders: Yes (ALL REPORTED BY PT) Musculoskeletal Disorders: Back Injury, Scoliosis, Chronic Back Pain Endocrine Hx Endocrine Disorders: No HEENT HX ENT Disorders: Yes (POOR DENTITION/ CHRONIC DENTAL ISSUES) Cancer Hx Cancer: No Psychosocial Hx Psychiatric Problems: Yes Behavioral Health Disorders: Anxiety, Bipolar, Depression Integumentary HX Skin/Integumentary Disorder: No Blood Transfusions Hx Blood Disorders: No Adverse Reaction to a Blood Tr: No Family Medical History Significant Family History: No Pertinent Family Hx Family Medial History: Family history: Hypertension Heart disease History of - anemia Infertile Kidney disease Physical Exam Vital Signs Vital Sign - Last 12Hours 12/16/16 01:08 Temp 97.3 Pulse 79 Resp 16 B/P 129/84 Pulse Ox 99 Capillary Refill : Less Than 3 Seconds General Appearance: No Apparent Distress WD/WN HEENT: PERRL/EOMI TMs Normal Normal ENT Inspection Other (oropharynx somewhat dry. 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 Norm as Tested Skin: Normal Color Warm/Dry Progress/Results/Core Measures Results/Orders Lab Results Laboratory Tests Test 12/16/16 01:24 12/16/16 01:57 Range/Units Alanine Aminotransferase (ALT/SGPT) 12 0-55 U/L Albumin 3.9 3.2-4.5 G/DL Alkaline Phosphatase 86 40-136 U/L Anion Gap 10 5-14 MMOL/L Aspartate Amino Transf (AST/SGOT) 18 5-34 U/L BUN/Creatinine Ratio 12 Basophils # (Auto) 0.0 0.0-0.1 10^3/uL Basophils (%) (Auto) 0 0-10 % Blood Urea Nitrogen 9 7-18 MG/DL C-Reactive Protein High Sensitivity 0.16 0.00-0.50 MG/DL Calcium Level 8.9 8.5-10.1 MG/DL Carbon Dioxide Level 21 21-32 MMOL/L Chloride Level 107 98-107 MMOL/L Creatinine 0.77 0.60-1.30 MG/DL Eosinophils # (Auto) 0.4 H 0.0-0.3 10^3/uL Eosinophils (%) (Auto) 6 0-10 % Estimat Glomerular Filtration Rate > 60 Glucose Level 94 70-105 MG/DL Hematocrit 38 35-52 % Hemoglobin 12.6 11.5-16.0 G/DL Lymphocytes # (Auto) 2.6 1.0-4.0 X 10^3 Lymphocytes (%) (Auto) 39 12-44 % Mean Corpuscular Hemoglobin 30 25-34 PG Mean Corpuscular Hemoglobin Concent 33 32-36 G/DL Mean Corpuscular Volume 91 80-99 FL Mean Platelet Volume 9.7 7.4-10.4 FL Monocytes # (Auto) 0.7 0.0-1.0 X 10^3 Monocytes (%) (Auto) 11 0-12 % Neutrophils # (Auto) 2.9 1.8-7.8 X 10^3 Neutrophils (%) (Auto) 44 42-75 % Platelet Count 395 130-400 10^3/uL Potassium Level 4.1 3.6-5.0 MMOL/L Red Blood Count 4.19 L 4.35-5.85 10^6/uL Red Cell Distribution Width 13.7 10.0-14.5 % Sodium Level 138 135-145 MMOL/L Total Bilirubin 0.3 0.1-1.0 MG/DL Total Protein 6.5 6.4-8.2 G/DL White Blood Count 6.7 4.3-11.0 10^3/uL Urine Bacteria TRACE /HPF Urine Bilirubin NEGATIVE NEGATIVE Urine Casts NONE /LPF Urine Clarity SLIGHTLY CLOUDY Urine Color YELLOW Urine Crystals NONE /LPF Urine Culture Indicated YES Urine Glucose (UA) NEGATIVE NEGATIVE Urine Ketones NEGATIVE NEGATIVE Urine Leukocyte Esterase 2+ H NEGATIVE Urine Mucus SMALL H /LPF Urine Nitrite NEGATIVE NEGATIVE Urine Protein 1+ H NEGATIVE Urine RBC 5-10 H /HPF Urine RBC (Auto) 5+ H NEGATIVE Urine Specific [place] 1.010 L 1.016-1.022 Urine Squamous Epithelial Cells 5-10 /HPF Urine Urobilinogen 1 NORMAL MG/DL Urine WBC 5-10 H /HPF Urine pH 7 5-9 My Orders Orders-CALVIN JACOBO MD Cbc With Automated Diff (12/16/16 01:08) Comprehensive Metabolic Panel (12/16/16 01:08) Hs C Reactive Protein (12/16/16 01:08) Ua Culture If Indicated (12/16/16 01:08) Saline Lock/Iv-Start (12/16/16 01:08) Ns Iv 1000 Ml (Sodium Chloride 0.9%) (12/16/16 01:08) Ondansetron Injection (Zofran Injectio (12/16/16 01:15) Urine Culture (12/16/16 01:57) Medications Given in ED Current Medications Medications Dose Ordered Sig/Antonia Route Start Time Stop Time Status Last Admin Dose Admin Ondansetron HCl 4 mg ONCE ONCE IVP 12/16/16 01:15 12/16/16 01:16 DC 12/16/16 01:56 4 MG Sodium Chloride 1,000 ml @ 0 mls/hr Q0M ONCE IV 12/16/16 01:08 12/16/16 01:12 DC 12/16/16 01:24 0 MLS/HR Vital Signs/I&O Vital Sign - Last 12Hours 12/16/16 12/16/16 01:08 02:52 Temp 97.3 97.3 Pulse 79 82 Resp 16 16 B/P 129/84 Pulse Ox 99 98 Blood Pressure Mean: 99 Progress Note : Progress Note Workup was unremarkable. Patient was treated with Zofran and a liter of IV fluids. Possible etiologies for her symptoms were discussed with the patient if she was encouraged to continue dialogue with her behavioral health provider and primary care provider. Departure Impression Impression: Primary Impression: Fatigue Qualified Code: R53.83 - Other fatigue Additional Impressions: Lightheadedness Nausea Disposition: HOME, SELF-CARE Condition: Improved Departure-Patient Inst. Decision time for Depature: 02:25 Referrals: [facility] (PCP/Family) Primary Care Physician Patient Instructions: NO INSTRUCTIONS GIVEN Add. Discharge Instructions: Stay well-hydrated. Complete your antibiotic medications as prescribed. If needed, fill the Zofran (ondansetron) prescription to use for nausea. Follow- up with your primary care provider and keep your appointment with your behavioral health provider. Return to care if symptoms worsen. Minimize use of sedating medications such as narcotics and anxiety medications to avoid excessive fatigue. All discharge instructions reviewed with patient and/or family. Voiced understanding. Scripts Ondansetron (Zofran Odt)4 Mg Tab.rapdis4 Mg SL Q4H #10 TAB Prov:CALVIN JACOBO MD 12/16/16 CALVIN JACOBO MD Dec 16, 2016 02:42
[2016-12-16] MEDS ORDERED: ONDA4TAB8 SL (02:46)
[2016-12-16 02:52] VITALS: BP 126/79
[2017-01-10] MEDS ORDERED: IBUP-1780 PO (07:19)
[2017-01-10] MEDS ORDERED: DOCU100C37 PO (07:19)
[2017-01-10] MEDS ORDERED: OXYC-465 PO (07:19)
== END 2016-12-16 02:52 | disposition home or self-care (01) ==
LOC: EDUNIT# 00:56 → ER 00:59
DX: R53.83 Other fatigue (principal); R11.2 Nausea with vomiting, unspecified; R42 Dizziness and giddiness; F17.210 Nicotine dependence, cigarettes, uncomplicated
CPT/HCPCS: 36415; 80053; 81000; 85025; 86141; 87088; 96361; 96374

== ENCOUNTER 2017-01-04 12:09 | Outpatient (CLI) | payer MEDICAID ==
[~2017-01-04] VITALS: Ht 167.6 cm; Wt 58.6 kg
[~2017-01-04 12:09] MED LIST changes: +ONDA4TAB8 SL
--- OUTSIDE RECORDS SUMMARY | 2017-01-04 12:12 | XMS REPORT | Continuity of Care Document ---
Author Author [facility] Organization [facility] Address Unknown Phone Unavailable Care Team Providers Care Senior Climate Advisor Name Role Phone Unknown, Unknown PCP Unavailable Source Comments Some departments are not documenting in the electronic medical record. If you do not see the information that you expected, contact Release of Information in the Health Information Management department at [phone] for further assistance in locating additional records.[facility] [...]
[2017-01-04 12:18] VITALS: BP 113/71
[2017-01-04] MEDS ORDERED: OXCA300T PO (12:33)
[2017-01-04] MEDS ORDERED: ALPR1TAB7 PO (12:33)
== END 2017-01-04 12:30 | disposition home or self-care (01) ==
LOC: PREOP 12:09
PROVIDERS: ATTEND Obstetrics & Gynecology
DX: Z01.818 Encounter for other preprocedural examination (principal); Z11.2 Encounter for screening for other bacterial diseases; R10.2 Pelvic and perineal pain; N80.9 Endometriosis, unspecified; N93.8 Other specified abnormal uterine and vaginal bleeding; D64.9 Anemia, unspecified
CPT/HCPCS: 87081

== ENCOUNTER 2017-01-09 10:50 | Day surgery (SDC) | payer MEDICAID ==
[~2017-01-09] VITALS: Ht 167.6 cm; Wt 58.6 kg
[~2017-01-09 10:50] MED LIST changes: +ALPR1TAB7 PO; +OXCA300T PO
--- OUTSIDE RECORDS SUMMARY | 2017-01-09 10:53 | XMS REPORT | Continuity of Care Document ---
Author Author [facility] Organization [facility] Address Unknown Phone Unavailable Care Team Providers Care Despatching And Receiving Clerk Name Role Phone Unknown, Unknown PCP Unavailable Source Comments Some departments are not documenting in the electronic medical record. If you do not see the information that you expected, contact Release of Information in the Health Information Management department at [phone] for further assistance in locating additional records.[facility] Active Allergies and Adverse Reactions Not on [...]
--- OUTSIDE RECORDS SUMMARY | 2017-01-09 10:54 | XMS REPORT | Continuity of Care Document ---
Author Author [facility] Organization [facility] Address Unknown Phone Unavailable Care Team Providers Care Aircraft Electrician Name Role Phone Unknown, Unknown PCP Unavailable Source Comments Some departments are not documenting in the electronic medical record. If you do not see the information that you expected, contact Release of Information in the Health Information Management department at [phone] for further assistance in locating additional records.[facility] Active Allergies and Adverse Reactions [...]
[2017-01-09 11:10] VITALS: BP 118/74
[2017-01-09] MEDS ORDERED: ceFAZolin 1 GM/NS 50 ML IVPB IV ONE ×2 (11:15)
[2017-01-09] MEDS: LACTATED RINGERS 1,000 ML IV PRN ×3 (11:40→14:55)
[2017-01-09] MEDS ORDERED: FAMOTIDINE 20MG/2ML IV (PEPCID) IV ONE (11:45)
[2017-01-09] MEDS ORDERED: LIDOCAINE PF 2% 10 ML (XYLOCAINE) AMP ONE (11:51)
[2017-01-09] MEDS ORDERED: DEXAMETHASONE PF 10 MG/ML (DECADRON) VIAL ONE (11:51)
[2017-01-09] MEDS ORDERED: proPOfol 200 MG/20 ML (DIPRIVAN) VIAL IV ONE (11:51)
[2017-01-09] MEDS ORDERED: SEVOFLURANE (ULTANE) 15 ML INHAL SOLN ONE ×5 (11:51→13:39)
[2017-01-09] MEDS ORDERED: LACTATED RINGERS 1,000 ML IV ONE ×3 (11:51→14:49)
[2017-01-09] MEDS ORDERED: MIDAZOLAM 2 MG/2 ML (VERSED) VIAL ONE (11:52)
[2017-01-09] MEDS ORDERED: fentaNYL INJECTION 250 MCG/5 ML AMP ONE (11:52)
[2017-01-09] MEDS ORDERED: BUP/EPI 0.25% 1:200,000 (MARCAINE) 30 ML VIAL ONE (12:05)
[2017-01-09] MEDS ORDERED: D5 LR IV SOLUTION 1,000 ML IV SCH (12:43)
--- NOTE | 2017-01-09 12:43 | Progress Note-Pre Operative ---
Pre-Operative Progress Note H&P Reviewed The H&P was reviewed, patient examined and no changes noted. Date H&P Reviewed: Jan 09, 2017 Time H&P Reviewed: 12:43 Pre-Operative Diagnosis: chronic pelvic pain/history of endometriosis// dysfunctional uterine bleedJENNIFER Sahu MD Jan 09, 2017 12:43 pm
[2017-01-09] MEDS ORDERED: ONDANSETRON 4 MG/2 ML (SDV) Z0FRAN IVP PRN ×2 (12:45→14:30)
[2017-01-09] MEDS ORDERED: WATER (STERILE) FOR INJ 10 ML BTL INJ ONE (12:45)
[2017-01-09] MEDS ORDERED: ESTROGENS CONJ IV 25 MG/5 ML (PREMARIN) VIAL IVP ONE (12:45)
[2017-01-09] MEDS ORDERED: morphine INJ 10 MG/ML 1ML (SYR OR VIAL) ONE (13:15)
[2017-01-09] MEDS ORDERED: KETOROLAC 30 MG/ML VIAL ONE (13:15)
[2017-01-09] MEDS ORDERED: GLYCOPYRROLATE 0.2 MG/ML (ROBINUL) 2 ML VIAL ONE (14:03)
[2017-01-09] MEDS ORDERED: NEOSTIGMINE (BLOXIVERZ ) 1 MG/1ML 10 ML VIAL ONE (14:03)
[2017-01-09] MEDS ORDERED: PROMETHAZINE INJ 25 MG/ML (PHENERGAN) AMP IVP PRN (14:30)
[2017-01-09] MEDS ORDERED: MEPERIDINE (DEMEROL) INJ 50 MG/ML IVP PRN (14:30)
[2017-01-09] MEDS ORDERED: HYDROmorphone (DILAUDID) 2 MG/ML VIAL IVP PRN (14:30)
[2017-01-09] MEDS: morphine INJ 10 MG/ML 1ML (SYR OR VIAL) IVP PRN ×2 (14:44→14:50)
[2017-01-09 15:25] VITALS: BP 109/68
[2017-01-09] MEDS ORDERED: MEPERIDINE (DEMEROL) INJ 50 MG/ML ONE (15:46)
[2017-01-09 15:55] VITALS: BP 112/65
[2017-01-09] MEDS: MEPERIDINE (DEMEROL) INJ 100 MG/ML IM PRN ×2 (15:56→22:14)
[2017-01-09] MEDS: PROMETHAZINE INJ 25 MG/ML (PHENERGAN) AMP IM PRN ×2 (15:56→22:14)
[2017-01-09 20:10] VITALS: BP 110/66
[2017-01-09] MEDS: oxyCODONE/APAP 10/325MG (PERCOCET 10) TABLET PO PRN (20:53)
[2017-01-10 01:15] VITALS: BP 113/58
[2017-01-10] MEDS: oxyCODONE/APAP 10/325MG (PERCOCET 10) TABLET PO PRN ×2 (01:29→08:07)
[2017-01-10 04:35] VITALS: BP 93/49
[2017-01-10] MEDS: PROMETHAZINE INJ 25 MG/ML (PHENERGAN) AMP IM PRN (04:37)
[2017-01-10] MEDS: MEPERIDINE (DEMEROL) INJ 100 MG/ML IM PRN (04:38)
--- NOTE | 2017-01-10 07:18 | Progress Note-Standard ---
Standard Progress Note Progress Notes/Assess & Plan Progress/Assessment & Plan this patient is without complaint. She is ambulating, voiding, tolerating by mouth well, has good pain control. Patient denies chest pain, denies shortness of breath, denies nausea vomiting. Vital Signs Date Time Temp Pulse Resp B/P Pulse Ox O2 Delivery O2 Flow Rate FiO2 01/10/17 04:35 98.8 77 18 93/49 96 Room Air 01/09/17 20:10 98.0 77 18 110/66 95 Room Air 01/09/17 15:55 60 18 112/65 Room Air 01/09/17 15:25 97.9 58 20 109/68 100 Room Air 01/09/17 14:50 97.5 01/09/17 14:44 97.5 01/09/17 14:27 97.5 01/09/17 11:10 97.5 92 18 118/74 97 Room Air I & O 01/10/17 07:00 Intake Total 1150 ml Output Total 565 ml Balance 585 ml vital signs are stable. Patient is afebrile. Abdomen is benign. Extreme show clubbing or cyanosis. There is no Homans sign. Assessment and plan postoperative day number 1 status post total laparoscopic hysterectomy with bilateral salpingectomies. Patient doing well and will be discharged home with follow-up in clinic. Final Diagnosis dysfunctional uterine bleeding/chronic pelvic pain/endometriosis JENNIFER MAYES MD Jan 10, 2017 7:18 am
[2017-01-10] MEDS ORDERED: IBUP-1780 PO (07:19)
[2017-01-10] MEDS ORDERED: OXYC-465 PO (07:19)
[2017-01-10] MEDS ORDERED: DOCU100C37 PO (07:19)
--- NOTE | 2017-01-10 07:20 | Discharge Instructions ---
Discharge Instructions Discharge Medications New, Converted or Re-Newed RX: RX on Chart Patient Instructions Patient Instructions: as directed Return to The Hospital For: as directed Activity & Diet Discharge Diet: No Restrictions Activity as Tolerated: No Orders-Post D/C & Referrals Follow Up Appt: return to clinic on Friday, January 13, 2017 at 930 a.m. for staple removal Call to make follow up appt. for patient in 4 weeks. Activity: Rest for 24 hours, than as tolerated. Wound Care: May remove Band-Aid tomorrow. Replace as desired. Keep incisions clean and dry. Wash daily with soap and water. Please call in RX to patient pharmacy. Diet: As tolerated-Clear Liquids only if nauseated. Tomorrow, may shower or tub bathe as desired. No driving for 24 hours, no alcoholic beverages for 24 hours, and nothing per vagina (no tampons, douching, or intercourse) for 8 weeks. Patient to return to the clinic as soon as possible for: Temperature greater than 101F, Severe Pain, Foul discharge from incision or vagina, Excessive Bleeding (more than a period). JENNIFER MAYES MD Jan 10, 2017 7:20 am
[2017-01-10 08:00] VITALS: BP 97/52
[2017-01-10] MEDS ORDERED: DOCUSATE SODIUM 100 MG (COLACE) CAP PO SCH (09:00)
[2017-01-10 09:45] VITALS: BP 92/57
--- NOTE | 2017-01-10 09:58 | OPERATIVE REPORT ---
PROCEDURE PHYSICIAN: JENNIFER MAYES DATE OF PROCEDURE: 01/09/2017 DATE OF DICTATION: 01/09/2017 PREOPERATIVE DIAGNOSIS: 1. Dysfunctional uterine bleeding. 2. Chronic pelvic pain. 3. History of endometriosis. POSTOPERATIVE DIAGNOSES: 1. Dysfunctional uterine bleeding. 2. Chronic pelvic pain. 3. History of endometriosis. 4. Repeat current endometriosis. OPERATIVE PROCEDURE: Total laparoscopic hysterectomy with bilateral salpingectomy and destruction of endometriosis using robotic assistance. OPERATIVE DESCRIPTION: With the patient in supine position, under satisfactory general anesthesia, she was repositioned in dorsal lithotomy position in the [facility] and prepped and draped in the usual fashion for abdominal and vaginal surgery using robotic assistance. A weighted speculum was placed in the posterior fornix of the vagina. The cervix exposed and grasped anteriorly with single-tooth tenaculum. The uterus was sounded to 9 cm uterine sound. The cervix was then serially dilated with Gary dilators to accommodate a IRMA 2 manipulator, which was placed using a 6 mm x 8 cm uterine probe and a 30 mm colpotomy ring. Sutures of number 1 Vicryl were placed at 3 and 9 o'clock position of the cervix and affixed to the manipulator as well. Mills catheter was placed in the urinary bladder and patient brought in low dorsal lithotomy position. A 12 mm incision was made just superior to the umbilicus, 8 mm incisions were made 9 cm lateral to the umbilicus. All 3 sites were infiltrated with 0.25% Marcaine with epinephrine prior to incision. Veress needle was placed through the umbilical incision. Correct placement was confirmed with water drop test. The abdomen was insufflated with 2.4 liters of carbon dioxide then the Veress needle was removed and a 12 mm Optiview laparoscopic port placed. The abdominal wall was transilluminated and 8 mm ports was placed in the two lateral incisions. The patient placed in Trendelenburg, allowing the bowel was spilled up out of the pelvis. The da Christopher column was advanced on to the patient and docked and then operative instruments were placed in the right and left lateral ports and I retired to the da Christopher console. At the console, using the vessel sealer on the right and bipolar fenestrated grasper on the left, the pelvis was first examined. There was evidence of endometriosis in the cul-de-sac, both ovarian fossae and in involving the entire uterus. Fallopian tubes appeared to be affected with endometriosis as well. There were some small endometriosis implants on each ovary as there were also a couple of small cysts on each ovary. The decision was made to proceed with the intended procedure, that being hysterectomy with bilateral (s/l salpingo-oophorectomy??) and conservation of the ovaries and destruction of endometriosis. Right fallopian was grasped and elevated using the vessel sealer. The right fallopian tube, mesosalpinx was grasped, clamped, cauterized, and divided over to the utero-ovarian pedicle, then the utero-ovarian pedicle, round ligament, broad ligament and cardinal ligaments were treated in the same manner stepwise, allowing for conservation of the right ovary. The same procedure performed on the left with the same result. The anterior lower uterine segment peritoneum was then divided after replacing the vessel sealer with a monopolar shear. Bladder was carefully dissected down off the lower uterine segment. The colpotomy incision was made at the 12 o'clock position onto the colpotomy ring. That incision was continued circumferentially until the entire colpotomy ring was exposed. This allowed for removal of the uterus with the tubes still attached through the vagina. The vaginal cuff was closed with 2 sutures of V-Loc barbed suture, starting first from the right angle to the midpoint and then from the left angle to the midpoint with a second suture. At the angles the uterine vessels were included in the closure as well for securing hemostasis. Both ureters were seen to peristaltic before, during, and after the entire procedure. The peritoneum was brought back down on the vaginal cuff with the last couple stitches from each side on closing the vaginal cuff. Hemostasis was complete. The pelvis was irrigated and examined again. There was some endometriosis implants; these were touched with electrocautery using the monopolar shear, both ovarian fossae and in the cul-de-sac. The endometriosis implants were destroyed. There were some adhesions of the sigmoid to the left pelvic rim that had been taken down prior to initiating the procedure. This area was examined and was hemostatic as well. Confirmation of the he ureteral integrity was confirmed, seeing both ureters peristalsing and these are being dilated; the ureters traversed well away from the areas of suture and cautery. With the procedure complete, the operative instruments were removed under direct vision as were the ports. The abdomen was evacuated of insufflating gas in the process of removing the port. The patient was brought out of Trendelenburg. The skin incisions were stapled after closing the fascia at the umbilical incision with [id number] suture of 2-0 Vicryl. A speculum was replaced in the vagina. The vaginal cuff examined for complete closure and hemostasis, which was found completely satisfactory. The patient now uneventfully awakened from her general anesthesia and transferred to the recovery room in stable condition. Job ID: [id number] Dictated Date: 01/09/2017 14:13:02 Refractory Specialist Date: 01/10/2017 09:27:01 / dav
[2017-01-10] MEDS ORDERED: IBUPROFEN 800 MG (MOTRIN) TAB PO SCH (12:00)
== END 2017-01-10 09:45 | disposition home or self-care (01) ==
LOC: SDC 10:50 → WS 15:15 → SDC 01-10 09:45
PROVIDERS: ATTEND Obstetrics & Gynecology
DX: N80.3 Endometriosis of pelvic peritoneum (principal); N80.1 Endometriosis of ovary; N80.0 Endometriosis of uterus; N80.2 Endometriosis of fallopian tube; N83.01 Follicular cyst of right ovary; N83.02 Follicular cyst of left ovary; N72 Inflammatory disease of cervix uteri; N70.01 Acute salpingitis
CPT/HCPCS: 84703; 86850; 86900; 86901; 88307; 94664; 96361; 96372

== ENCOUNTER 2017-02-02 12:07 | Emergency (ER) | payer MEDICAID ==
[~2017-02-02] VITALS: Ht 167.6 cm; Wt 57.6 kg
[~2017-02-02 12:07] MED LIST changes: +IBUP-1780 PO
--- NOTE | 2017-02-02 12:40 | ED EENT ---
History of Present Illness General Chief Complaint: Dental Problems/Pain Stated Complaint: DENTAL/JAW PAIN Nursing Triage Note: AMB TO ED C/O JAW PAIN AFTER HAVING TEETH PULLED ON MONDAY BY [facility]. IBUPROFEN 800MG NOT HELPING Source: patient Exam Limitations: no limitations History of Present Illness Time seen by provider: 12:35 Initial Comments The patient is a 26-year-old white female who presents with complaints of dental pain. She states that she had extraction of her remaining upper teeth at [facility] on Monday. She is now having increasing pain particularly on the left. She had been instructed by their dental staff to take Tylenol or Motrin however this is not providing pain relief. She does not note fever or particular facial swelling. Timing/Duration: gradual Location: dental Prearrival Treatment: over the counter meds Allergies and Home Medications Allergies Coded Allergies: Penicillins (Unverified Allergy, Mild, PT ABLE TO TAKE ANCEF, 03/26/14) diclofenac (Unverified Allergy, Unknown, 01/21/15) divalproex sodium (Verified Allergy, Unknown, 08/26/15) Home Medications Alprazolam 1 Mg Tablet, 1 MG PO TID PRN for ANXIETY, (Reported) Docusate Sodium 100 Mg Capsule, 100 MG PO BID, #60 Prescribed by: JENNIFER HILL on 01/10/17718 Ibuprofen 800 Mg Tablet, 800 MG PO Q4H PRN for PAIN, #60 Prescribed by: JENNIFER HILL on 01/10/17718 Oxcarbazepine 300 Mg Tablet, 300 MG PO BID, (Reported) Oxycodone HCl/Acetaminophen 1 Each Tablet, 1-2 TAB PO Q4H PRN for PAIN, #60 Prescribed by: JENNIFER HILL on 01/10/17718 Ranitidine HCl 150 Mg Tablet, 150 MG PO DAILY PRN for HEARTBURN, (Reported) Review of Systems Constitutional: see HPI Ears: No Symptoms Reported Nose: no symptoms reported Mouth: other (dental pain) Respiratory: no symptoms reported Cardiovascular: no symptoms reported Past Hpgafma-Cjubyl-Slkuqq Hx Patient Social History Alcohol Use: Denies Use Recreational Drug Use: No Smoking Status: Current Everyday Smoker Type Used: Cigarettes Recent Foreign Travel: No Contact w/Someone Who Travel: No Recent Infectious Disease Expo: No Recent Hopitalizations: Yes (DELIVERY OF BABY ) Immunizations Up To Date Tetanus Booster (TDap): Less than 5yrs PED Vaccines UTD: Yes Date of Influenza Vaccine: Aug 30, 2016 Seasonal Allergies Seasonal Allergies: No Surgeries HX Surgeries: Yes (LAPAROTOMY) Surgeries: Abdominal, Hysterectomy, Tonsillectomy Respiratory Hx Respiratory Disorders: Yes Respiratory Disorders: Asthma Cardiovascular Hx Cardiac Disorders: Yes (Hx. 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 Genitourinary Hx Genitourinary Disorders: No Gastrointestinal Hx Gastrointestinal Disorders: No Musculoskeletal Hx Musculoskeletal Disorders: Yes Musculoskeletal Disorders: Back Injury, Scoliosis, Chronic Back Pain Endocrine Hx Endocrine Disorders: No HEENT HX ENT Disorders: Yes (POOR DENTITION/ CHRONIC DENTAL ISSUES) Cancer Hx Cancer: No Psychosocial Hx Psychiatric Problems: Yes Behavioral Health Disorders: Anxiety, Bipolar, Depression Integumentary HX Skin/Integumentary Disorder: No Blood Transfusions Hx Blood Disorders: No Adverse Reaction to a Blood Tr: No Family Medical History Significant Family History: No Pertinent Family Hx Family Medial History: Family history: Hypertension (mother, MGM, and PGM) Heart disease (mother and father) History of - anemia (family Hx of blood transfusions) Infertile Kidney disease (MGM) Physical Exam Vital Signs Vital Sign - Last 12Hours 02/02/17 12:11 Temp 97.9 Pulse 95 Resp 18 B/P (MAP) 106/71 Pulse Ox 96 O2 Delivery Room Air General Appearance: mild distress Eyes: bilateral eye normal inspection Nose: normal inspection Mouth/Throat: dental tenderness, other (there are multiple pits in the upper gums consistent with dental extraction more on the left than right. There is no facial swelling.) Neck: full range of motion Cardiovascular: normal peripheral pulses, regular rate, rhythm, no edema, no gallop, no JVD, no murmur Respiratory: chest non-tender, lungs clear, normal breath sounds, no respiratory distress, no accessory muscle use Progress/Results/Core Measures Results/Orders Vital Signs/I&O Vital Sign - Last 12Hours 02/02/17 12:11 Temp 97.9 Pulse 95 Resp 18 B/P (MAP) 106/71 Pulse Ox 96 O2 Delivery Room Air Blood Pressure Mean: 83 Departure Impression Impression: Primary Impression: post extraction dental pain Disposition: 01 HOME, SELF-CARE Condition: Stable/Unchanged Departure-Patient Inst. Decision time for Depature: 12:41 Referrals: [facility] (PCP/Family) Primary Care Physician Patient Instructions: Dental Pain (DC) Add. Discharge Instructions: All discharge instructions reviewed with patient and/or family. Voiced understanding. Continue frequent warm salt water gargles and mouthwash Hydrocodone as prescribed Scripts Hydrocodone/Acetaminophen ([place] 7.5-325 Tablet) 1 Each Tablet 1 EACH PO 4 times a day, #20 TAB Prov: JESSIE ROBERTS MD 02/02/17 JESSIE ROBERTS MD Feb 02, 2017 12:40
[2017-02-02] MEDS ORDERED: HYDR-756 PO (12:43)
[2017-02-02 12:47] VITALS: BP 106/71
--- OUTSIDE RECORDS SUMMARY | 2017-02-05 08:48 | XMS REPORT ---
Author Author KAREN MIRZA [facility] eClinical[employer] Address Unknown Phone Unavailable Care Team Providers Care Letter Of Credit Document Examiner Name Role Phone KAREN MIRZA CP Unavailable Allergies, Adverse Reactions, Alerts Substance Reaction Event Type Thioridazine HCl tachycardia Drug Allergy Penicillin V Potassium rash Drug Allergy Diclofenac Sodium nausea Drug Allergy Depakote fatigue Drug Allergy Problems Problem Type Condition Code Onset Dates Condition Status Problem Other specified noninfective gastroenteritis and colitis K52.89 Active Problem H/O polycystic ovarian syndrome Z87.42 Active Problem History of cardiac dysrhythmia Z86.79 Active Problem Abdominal pain, epigastric R10.13 Active Problem Visual changes H53.9 Active Problem Abdominal pain, right upper quadrant R10.11 Active Problem Bilateral low back pain without sciatica M54.5 Active Assessment Bipolar disorder, current episode mixed, moderate F31.62 Active Problem Bipolar disorder, current episode mixed, moderate F31.62 Active Problem Infrequent menses N91.5 Active Problem History of PCOS Z87.42 Active Problem History of tobacco abuse Z87.891 Active Problem Chronic pain G89.29 Active Problem Tobacco use Z72.0 Active Problem Poor dentition K08.8 Active Problem Seizure-like activity R56.9 Active Problem Generalized anxiety disorder F41.1 Active Problem Desire for Z31.9 Active Problem Underweight R63.6 Active Problem History of self-harm Z91.5 Active Problem Endometriosis N80.9 Active Assessment Generalized anxiety disorder F41.1 Active Problem History of abnormal cervical Pap smear Z87.898 Active Problem Spontaneous bruising R23.3 Active Medications Medication Code System Code Instructions Start Date End Date Status Dosage Cyproheptadine HCl [facility] [address]-92 4 MG Orally daily at bedtime Jul 13, 2016 1 tablet Vitamin [facility] 16290-84782 27-0.8 MG Orally not defined BusPIRone HCl [facility] [address]-04 15 MG Orally Twice a day Jul 13, 2016 1 tablet Wellbutrin XL [facility] [address]-32 150 MG Orally Once a day Jul 13, 2016 1 tablet in the morning Procedures Procedure Coding System Code Date Office Visit, Est Pt., Level 3 CPT-4 76159 Jul 13, 2016 Vital Signs Date/Time: Jul 13, 2016 Cardiac Monitoring Heart Rate 118 bpm Weight 120.3 lbs Height 66 in BMI 19.41 Index Blood Pressure Diastolic 55 mmHg Blood Pressure Systolic 119 mmHg Results No Known Results Summary Purpose eClinicalWorks Submission
--- OUTSIDE RECORDS SUMMARY | 2017-02-05 08:48 | XMS REPORT | Continuity of Care Document ---
Author Author [facility] Organization [facility] Address Unknown Phone Unavailable Care Team Providers Care Steam Drier Tender Name Role Phone Unknown, Unknown PCP Unavailable Source Comments Some departments are not documenting in the electronic medical record. If you do not see the information that you expected, contact Release of Information in the Health Information Management department at [phone] for further assistance in locating additional records.[facility] Active Allergies and Adverse Reactions Not on File Current Medications Not on file Active Problems Not on file Social History Tobacco Use Types Packs/Day Years Used Date Never Assessed Plan of Care Health Maintenance Due Date Last Done Comments Physical (Comprehensive) 1997 Exam Hpv Vaccines (#1) 2001 Pertussis Vaccine 2001 Tetanus Vaccine 2007 Cervical Cancer Screening 2011 Influenza Vaccine 07/14/2017 Results from Last 3 Months Not on file
--- OUTSIDE RECORDS SUMMARY | 2017-02-05 08:48 | XMS REPORT ---
Author Author MAYA CELIS [facility] eClinicalWorks Address Unknown Phone Unavailable Care Team Providers Care Ironworker Machine Operator Name Role Phone MAYA CELIS CP Unavailable Allergies, Adverse Reactions, Alerts Substance Reaction Event Type Thioridazine HCl tachycardia Drug Allergy Penicillin V Potassium rash Drug Allergy Diclofenac Sodium nausea Drug Allergy Depakote fatigue Drug Allergy Problems Problem Type Condition Code Onset Dates Condition Status Problem Spontaneous bruising R23.3 Active Problem History of cardiac dysrhythmia Z86.79 Active Problem Other specified noninfective gastroenteritis and colitis K52.89 Active Problem Abdominal pain, right upper quadrant R10.11 Active Problem Seizure-like activity R56.9 Active Problem History of tobacco abuse Z87.891 Active Problem Visual changes H53.9 Active Problem Bilateral low back pain without sciatica M54.5 Active Problem Abdominal pain, epigastric R10.13 Active Problem History of PCOS Z87.42 Active Problem H/O polycystic ovarian syndrome Z87.42 Active Problem Chronic pain G89.29 Active Problem Infrequent menses N91.5 Active Problem Tobacco use Z72.0 Active Problem Poor dentition K08.8 Active Problem Unspecified mood [affective] disorder F39 Active Problem Generalized anxiety disorder F41.1 Active Problem History of abnormal cervical Pap smear Z87.898 Active Problem Desire for Z31.9 Active Problem History of self-harm Z91.5 Active Problem Underweight R63.6 Active Assessment Bipolar disorder, current episode mixed, moderate F31.62 Active Problem Anxiety associated with depression F41.8 Active Problem Endometriosis N80.9 Active Medications Medication Code System Code Instructions Start Date End Date Status Dosage Lexapro [facility] [address]-42 20 MG Orally Once a day Oct 17, 2014 1 tablet Naproxen [facility] [address]-78 500 MG Orally every 12 hrs 1 tablet as needed Xanax [facility] [address]-24 1 MG Orally Three times a day PRN May 22, 2015 1 tablet Seroquel [facility] [address]-25 200 MG Orally Once a day Nov 03, 2015 1 tablet at bedtime Procedures Procedure Coding System Code Date Office Visit, Est Pt., Level 4 CPT-4 97806 Nov 03, 2015 Vital Signs Date/Time: Nov 03, 2015 Blood Pressure Systolic 120 mmHg Weight 120.0 lbs Height 66 in BMI 19.37 Index Blood Pressure Diastolic 72 mmHg Results No Known Results Summary Purpose eClinicalWorks Submission
--- OUTSIDE RECORDS SUMMARY | 2017-02-05 08:49 | XMS REPORT ---
Author Author PROSPER MILLER Organization [employer] Address Unknown Phone Unavailable Care Team Providers Care Telephone Surveyor Name Role Phone PROSPER MILLER CP Unavailable Allergies No Known Allergies Problems Problem Type Condition Code Onset Dates [...] Active Problem Spontaneous bruising R23.3 Active Medications No Known Medications Procedures Procedure Coding System Code Date Psychotherapy, patient &/family, 30 minutes, established patient CPT-4 23352 Sep 26, 2016 Results No Known Results Summary Purpose [employer] Submission
--- OUTSIDE RECORDS SUMMARY | 2017-02-05 08:49 | XMS REPORT ---
Author Author GODWIN SEVILLA [facility] eClinicalWorks Address Unknown Phone Unavailable Care Team Providers Care Pick And Shovel Worker Name Role Phone GODWIN SEVILLA CP Unavailable Allergies No Known Allergies Problems Problem Type Condition Code Onset Dates Condition Status Problem Polycystic ovaries 256.4 Active Problem Other specified cardiac dysrhythmias 427.89 Active Problem Palpitations 785.1 Active Problem Unspecified contraceptive management V25.9 Active Problem 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 Active Problem Shortness of breath 786.05 Active Problem Dysuria 788.1 Active Problem Unspecified episodic mood disorder 296.90 Active Problem Major depressive disorder, recurrent episode, in partial or unspecified remission 296.35 Active Problem Chest pain, unspecified 786.50 Active Problem Unspecified cardiac dysrhythmia 427.9 Active Problem Papanicolaou smear of cervix with low grade squamous intraepithelial lesion (LGSIL) 795.03 Active Problem Impulse control disorder, unspecified 312.30 Active Problem Lumbago 724.2 Active Problem Abdominal pain, right upper quadrant 789.01 Active Problem Bipolar I disorder, most recent episode (or current) mixed, severe, specified as with psychotic behavior 296.64 Active Problem Abdominal pain, epigastric 789.06 Active Problem Loss of weight 783.21 Active Problem Abdominal pain, unspecified site 789.00 Active Problem Visual changes H53.9 Active Problem Bilateral low back pain without sciatica M54.5 Active Problem Health examination of defined subpopulation V70.5 Active Problem Posttraumatic stress disorder 309.81 Active Problem Spontaneous ecchymoses 782.7 Active Problem Seizure-like activity R56.9 Active Problem Unspecified backache 724.5 Active Problem STATE HEP A (ADULT) DX V05.3 Active Problem Unspecified high-risk V23.9 Active Problem Endometriosis, site unspecified 617.9 Active Problem Nausea alone 787.02 Active Problem Unspecified symptom associated with female genital organs 625.9 Active Problem Underweight 783.22 Active Problem Generalized anxiety disorder 300.02 Active Problem Hand pain, right 729.5 Active Problem Absence of menstruation 626.0 Active Problem Special screening examination, human papillomavirus [HPV] V73.81 Active Problem Other and unspecified noninfectious gastroenteritis and colitis 558.9 Active Problem Screening for malignant neoplasm of the cervix V76.2 Active Problem Decreased libido 799.81 Active Problem Nondependent tobacco use disorder 305.1 Active Problem Unspecified procreative management V26.9 Active Problem Scanty or infrequent menstruation 626.1 Active Problem Major depressive disorder, recurrent episode, unspecified 296.30 Active Problem Personal history of tobacco use, presenting hazards to health V15.82 Active Problem Bipolar I disorder, most recent episode (or current) mixed, moderate 296.62 Active Problem Encounter for long-term (current) use of other medications V58.69 Active Problem Screening examination for venereal disease V74.5 Active Problem Other chronic pain 338.29 Active Medications No Known Medications Results No Known Results Summary Purpose eClinicalWorks Submission
--- OUTSIDE RECORDS SUMMARY | 2017-02-05 08:49 | XMS REPORT ---
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 Active Problem Shortness of breath 786.05 Active Problem Dysuria 788.1 Active Problem Unspecified episodic mood disorder 296.90 Active Problem Chest pain, unspecified 786.50 Active Problem Unspecified cardiac dysrhythmia 427.9 Active Problem Encounter for long-term (current) use of other medications V58.69 Active Problem Papanicolaou smear of cervix with low grade squamous intraepithelial lesion (LGSIL) 795.03 Active Problem Impulse control disorder, unspecified 312.30 Active Problem Lumbago 724.2 Active Problem Abdominal pain, right upper quadrant 789.01 Active Problem Abdominal pain, unspecified site 789.00 Active Problem Abdominal pain, epigastric 789.06 Active Problem Bilateral low back pain without sciatica M54.5 Active Problem Underweight 783.22 Active Problem Posttraumatic stress disorder 309.81 Active Problem Unspecified backache 724.5 Active Problem STATE HEP A (ADULT) DX V05.3 Active Problem Visual changes H53.9 Active Problem Bipolar I disorder, most recent episode (or current) mixed, severe, specified as with psychotic behavior 296.64 Active Problem Endometriosis, site unspecified 617.9 Active Problem Nausea alone 787.02 Active Problem Unspecified symptom associated with female genital organs 625.9 Active Problem Loss of weight 783.21 Active Problem Generalized anxiety disorder 300.02 Active Problem Hand pain, right 729.5 Active Problem Major depressive disorder, recurrent episode, in partial or unspecified remission 296.35 Active Problem Unspecified high-risk V23.9 Active Problem Unspecified procreative management V26.9 Active Problem Scanty or infrequent menstruation 626.1 Active Problem Absence of menstruation 626.0 Active Problem Special screening examination, human papillomavirus [HPV] V73.81 Active Problem Bipolar I disorder, most recent episode (or current) mixed, moderate 296.62 Active Problem Health examination of defined subpopulation V70.5 Active Problem Decreased libido 799.81 Active Problem Nondependent tobacco use disorder 305.1 Active Problem Spontaneous ecchymoses 782.7 Active Problem Other chronic pain 338.29 Active Problem Major depressive disorder, recurrent episode, unspecified 296.30 Active Problem Personal history of tobacco use, presenting hazards to health V15.82 Active Problem Screening for malignant neoplasm of the cervix V76.2 Active Problem Screening examination for venereal disease V74.5 Active Medications No Known Medications Results No Known Results Summary Purpose eClinicalWorks Submission
--- OUTSIDE RECORDS SUMMARY | 2017-02-05 08:49 | XMS REPORT ---
Author Author MAYA CELIS [facility] eClinicalWorks Address Unknown Phone Unavailable Care Team Providers Care Content Curator Name Role Phone MAYA CELIS CP Unavailable Allergies, Adverse Reactions, Alerts Substance Reaction Event Type Thioridazine HCl tachycardia Drug Allergy Penicillin V Potassium rash Drug Allergy Diclofenac Sodium nausea Drug Allergy Depakote fatigue Drug Allergy Problems Problem Type Condition Code Onset Dates Condition Status Assessment Seizure-like activity R56.9 Active Problem Underweight R63.6 Active Assessment Generalized anxiety disorder F41.1 Active Problem Endometriosis N80.9 Active Assessment Bipolar disorder, current episode mixed, moderate F31.62 Active Problem Spontaneous bruising R23.3 Active Problem History of cardiac dysrhythmia Z86.79 Active Problem Other specified noninfective gastroenteritis and colitis K52.89 Active Problem Abdominal pain, right upper quadrant R10.11 Active Problem History of tobacco abuse Z87.891 Active Problem Seizure-like activity R56.9 Active Problem Visual changes H53.9 Active Problem Abdominal pain, epigastric R10.13 Active Problem Bilateral low back pain without sciatica M54.5 Active Problem History of PCOS Z87.42 Active [...] Problem History of self-harm Z91.5 Active Problem Anxiety associated with depression F41.8 Active Medications Medication Code System Code Instructions Start Date End Date Status Dosage Naproxen [facility] [address]-36 500 MG Orally every 12 hrs 1 tablet as needed Prozac [facility] [address]-48 20 MG Orally Once a day Dec 04, 2015 1 capsule in the morning Rexulti [facility] [address]-89 0.5 MG Orally Once a day Dec 04, 2015 1 tablet Xanax [facility] [address]-55 1 MG Orally Three times a day PRN May 22, 2015 1 tablet Seroquel [facility] [address]-90 200 MG Orally Once a day Nov 03, 2015 1 tablet at bedtime Klonopin [facility] [address]-04 1 MG Orally Twice a day Oct 15, 2015 1 tablet Procedures Procedure Coding System Code Date MH Office Visit, Est Pt., Level 4 CPT-4 91851 Dec 04, 2015 Vital Signs Date/Time: Dec 04, 2015 Cardiac Monitoring Heart Rate 132 bpm Weight 119.0 lbs Height 66 in BMI 19.21 Index Blood Pressure Diastolic 60 mmHg Blood Pressure Systolic 100 mmHg Results No Known Results Summary Purpose eClinicalWorks Submission
--- OUTSIDE RECORDS SUMMARY | 2017-02-05 08:50 | XMS REPORT ---
Author Author GODWIN SEVILLA [facility] eClinicalWorks Address Unknown Phone Unavailable Care Team Providers Care Ferryboat Ticket Taker Name Role Phone GODWIN SEVILLA Unavailable Allergies No Known Allergies Problems Problem Type Condition Code Onset Dates Condition Status Problem Absence of menstruation 626.0 Active Problem Unspecified procreative management V26.9 Active Problem Other specified cardiac dysrhythmias 427.89 Active Problem Other and unspecified noninfectious gastroenteritis and colitis 558.9 Active Problem Polycystic ovaries 256.4 Active Problem Unspecified contraceptive management V25.9 Active Problem Palpitations 785.1 Active Problem Shortness of breath 786.05 Active Problem Unspecified episodic mood disorder 296.90 Active Problem Other chronic pain 338.29 Active Problem Chest pain, unspecified 786.50 Active Problem Personal history of tobacco use, presenting hazards to health V15.82 Active Problem Unspecified cardiac dysrhythmia 427.9 Active Problem Encounter for long-term (current) use of other medications V58.69 Active Problem Abdominal pain, right upper quadrant 789.01 Active Problem Impulse control disorder, unspecified 312.30 Active Problem Hand pain, right 729.5 Active Problem Unspecified high-risk V23.9 Active Problem Bipolar I disorder, most recent episode (or current) mixed, severe, specified as with psychotic behavior 296.64 Active Problem Lumbago 724.2 Active Problem Unspecified symptom associated with female genital organs 625.9 Active Problem Underweight 783.22 Active Problem Papanicolaou smear of cervix with low grade squamous intraepithelial lesion (LGSIL) 795.03 Active Problem Generalized anxiety disorder 300.02 Active Problem Abdominal pain, unspecified site 789.00 Active Problem Major depressive disorder, recurrent episode, in partial or unspecified remission 296.35 Active Problem Abdominal pain, epigastric 789.06 Active Problem Dysuria 788.1 Active Problem Nausea alone 787.02 Active Problem 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 Active Problem Loss of weight 783.21 Active Problem Bipolar I disorder, most recent episode (or current) mixed, moderate 296.62 Active Problem Health examination of defined subpopulation V70.5 Active Problem Decreased libido 799.81 Active Problem Nondependent tobacco use disorder 305.1 Active Problem Spontaneous ecchymoses 782.7 Active Problem Unspecified backache 724.5 Active Problem Major depressive disorder, recurrent episode, unspecified 296.30 Active Problem Posttraumatic stress disorder 309.81 Active Problem Endometriosis, site unspecified 617.9 Active Problem Screening for malignant neoplasm of the cervix V76.2 Active Problem STATE HEP A (ADULT) DX V05.3 Active Problem Screening examination for venereal disease V74.5 Active Problem Scanty or infrequent menstruation 626.1 Active Problem Special screening examination, human papillomavirus [HPV] V73.81 Active Medications No Known Medications Results No Known Results Summary Purpose eClinicalWorks Submission
--- OUTSIDE RECORDS SUMMARY | 2017-02-05 08:50 | XMS REPORT ---
Author Author PROSPER MILLER [facility] eClinicalWorks Address Unknown Phone Unavailable Care Team Providers Care Tapeman Name Role Phone PROSPER MILLER CP Unavailable Allergies No Known Allergies Problems Problem Type Condition Code Onset Dates Condition Status Problem Other specified cardiac dysrhythmias 427.89 Active Problem Other and unspecified noninfectious gastroenteritis and colitis 558.9 Active Problem Unspecified contraceptive management V25.9 Active Problem Polycystic ovaries 256.4 Active Problem Palpitations 785.1 Active Problem Shortness of breath 786.05 Active Problem Chest pain, unspecified 786.50 Active Problem Unspecified cardiac dysrhythmia 427.9 Active Problem Papanicolaou smear of cervix with low grade squamous intraepithelial lesion (LGSIL) 795.03 Active Problem Abdominal pain, epigastric 789.06 Active Problem Lumbago 724.2 Active Problem Abdominal pain, unspecified site 789.00 Active Problem Unspecified backache 724.5 Active Problem Loss of weight 783.21 Active Problem Unspecified high-risk V23.9 Active Problem Nausea alone 787.02 Active Problem Unspecified mood [affective] disorder F39 Active Problem Seizure-like activity R56.9 Active Problem Scanty or infrequent menstruation 626.1 Active Problem Nondependent tobacco use disorder 305.1 Active Problem Unspecified symptom associated with female genital organs 625.9 Active Problem Generalized anxiety disorder F41.1 Active Problem Health examination of defined subpopulation V70.5 Active Problem Dysuria 788.1 Active Problem Underweight 783.22 Active Problem 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 Active Problem Hand pain, right 729.5 Active Assessment Generalized anxiety disorder F41.1 Active Problem Visual changes H53.9 Active Assessment Unspecified mood [affective] disorder F39 Active Problem Bilateral low back pain without sciatica M54.5 Active Problem Unspecified procreative management V26.9 Active Problem Screening examination for venereal disease V74.5 Active Problem Absence of menstruation 626.0 Active Problem Other chronic pain 338.29 Active Problem Spontaneous ecchymoses 782.7 Active Problem Special screening examination, human papillomavirus [HPV] V73.81 Active Problem Decreased libido 799.81 Active Problem Screening for malignant neoplasm of the cervix V76.2 Active Problem Endometriosis, site unspecified 617.9 Active Problem Impulse control disorder, unspecified 312.30 Active Problem STATE HEP A (ADULT) DX V05.3 Active Problem Abdominal pain, right upper quadrant 789.01 Active Problem Personal history of tobacco use, presenting hazards to health V15.82 Active Problem Encounter for long-term (current) use of other medications V58.69 Active Medications No Known Medications Procedures Procedure Coding System Code Date Psych diagnostic evaluation, established patient CPT-4 66910 Oct 15, 2015 Results No Known Results Summary Purpose eClinicalWorks Submission
--- OUTSIDE RECORDS SUMMARY | 2017-02-05 08:50 | XMS REPORT ---
Author Author GODWIN SEVILLA [facility] eClinicalWorks Address Unknown Phone Unavailable Care Team Providers Care Legal Recruiter Name Role Phone GODWIN SEVILLA CP Unavailable Allergies No Known Allergies Problems Problem Type Condition Code Onset Dates Condition Status Problem Polycystic ovaries 256.4 Active Problem Other specified cardiac dysrhythmias 427.89 Active Problem Palpitations 785.1 Active Problem Unspecified contraceptive management V25.9 Active Problem Shortness of breath 786.05 Active Problem Unspecified episodic mood disorder 296.90 Active Problem Chest pain, unspecified 786.50 Active Problem Unspecified cardiac dysrhythmia 427.9 Active Problem Papanicolaou smear of cervix with low grade squamous intraepithelial lesion (LGSIL) 795.03 Active Problem Lumbago 724.2 Active Problem Bipolar I disorder, most recent episode (or current) mixed, severe, specified as with psychotic behavior 296.64 Active Problem Health examination of defined subpopulation V70.5 Active Problem Posttraumatic stress disorder 309.81 Active Problem Unspecified backache 724.5 Active Problem Special screening examination, human papillomavirus [HPV] V73.81 Active Problem Screening for malignant neoplasm of the cervix V76.2 Active Problem Nondependent tobacco use disorder 305.1 Active Problem Scanty or infrequent menstruation 626.1 Active Problem Personal history of tobacco use, presenting hazards to health V15.82 Active Problem Encounter for long-term (current) use of other medications V58.69 Active Problem Screening examination for venereal disease V74.5 Active Problem Other chronic pain 338.29 Active Assessment Generalized anxiety disorder F41.1 Active Problem 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 Active Problem Dysuria 788.1 Active Problem Major depressive disorder, recurrent episode, in partial or unspecified remission 296.35 Active Problem Impulse control disorder, unspecified 312.30 Active Assessment Unspecified episodic mood disorder F39 Active Problem Abdominal pain, right upper quadrant 789.01 Active Problem Abdominal pain, epigastric 789.06 Active Problem Loss of weight 783.21 Active Problem Abdominal pain, unspecified site 789.00 Active Problem Visual changes H53.9 Active Problem Bilateral low back pain without sciatica M54.5 Active Problem Seizure-like activity R56.9 Active Problem Spontaneous ecchymoses 782.7 Active Problem Unspecified high-risk V23.9 Active Problem STATE HEP A (ADULT) DX V05.3 Active Problem Nausea alone 787.02 Active Problem Endometriosis, site unspecified 617.9 Active Problem Underweight 783.22 Active Problem Unspecified symptom associated with female genital organs 625.9 Active Problem Hand pain, right 729.5 Active Problem Generalized anxiety disorder 300.02 Active Problem Absence of menstruation 626.0 Active Problem Other and unspecified noninfectious gastroenteritis and colitis 558.9 Active Problem Decreased libido 799.81 Active Problem Unspecified procreative management V26.9 Active Problem Major depressive disorder, recurrent episode, unspecified 296.30 Active Problem Bipolar I disorder, most recent episode (or current) mixed, moderate 296.62 Active Medications Medication Code System Code Instructions Start Date End Date Status Dosage Cyclobenzaprine HCl [facility] [address]-53 10 MG Orally 2 times a day prn SepOct 15, 2015 1 tablet Xanax [facility] [address]-16 1 MG Orally Three times a day PRN May 22, 2015 1 tablet Seroquel XR [facility] [address]-78 200 MG Orally Once a day at bedtime - take one tablet X 7 days, then take 2 tablets Sep 17, 2015 2 tablet in the evening Lexapro [facility] [address]-46 20 MG Orally Once a day Oct 17, 2014 1 tablet Procedures Procedure Coding System Code Date Office Visit, Est Pt., Level 3 CPT-4 66783 Sep 17, 2015 Vital Signs Date/Time: Sep 17, 2015 Cardiac Monitoring Heart Rate 78 bpm Weight 112.8 lbs Height 66 in BMI 18.20 Index Blood Pressure Diastolic 64 mmHg Blood Pressure Systolic 92 mmHg Results No Known Results Summary Purpose eClinicalWorks Submission
--- OUTSIDE RECORDS SUMMARY | 2017-02-05 08:51 | XMS REPORT ---
Author Author KAREN MIRZA [facility] eClinicalWorks Address Unknown Phone Unavailable Care Team Providers Care Dope Sprayer Name Role Phone KAREN MIRZA CP Unavailable Allergies No Known Allergies Problems [...] Date End Date Status Dosage Cyproheptadine HCl [facility] [address]-86 4 MG Orally daily at bedtime Jul 13, 2016 1 tablet BusPIRone HCl [facility] [address]-03 15 MG Orally Twice a day Jul 13, 2016 1 tablet Vitamin [facility] [address]8928-[address]241 27-0.8 MG Orally not defined Seroquel [facility] [address]-62 200 MG Orally Once a day Sep 14, 2016 1 tablet Quetiapine Fumarate [facility] [address]-17 25 MG Orally as needed twice a day Sep 14, 2016 1 tablet Procedures Procedure Coding System Code Date Office Visit, Est Pt., Level 3 CPT-4 18109 Sep 14, 2016 Vital Signs Date/Time: Sep 14, 2016 Blood Pressure Systolic 110 mmHg Cardiac Monitoring Heart Rate 116 bpm Height 66 in Blood Pressure Diastolic 60 mmHg Results No Known Results Summary Purpose eClinicalWorks Submission
--- OUTSIDE RECORDS SUMMARY | 2017-02-05 08:51 | XMS REPORT ---
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 Problem Dysuria 788.1 Active Problem Major depressive disorder, recurrent episode, in partial or unspecified remission 296.35 Active Problem Impulse control disorder, unspecified 312.30 Active Assessment Dental caries K02.9 Active Problem Abdominal pain, right upper quadrant [...] Start Date End Date Status Dosage Lexapro [facility] [address]-68 20 MG Orally Once a day Oct 17, 2014 1 tablet Seroquel XR [facility] [address]-72 200 MG Orally Once a day at bedtime - take one tablet X 7 days, then take 2 tablets Sep 17, 2015 2 tablet in the evening Xanax [facility] [address]-27 1 MG Orally Three times a day PRN May 22, 2015 1 tablet Cyclobenzaprine HCl [facility] [address]-08 10 MG Orally 2 times a day prn SepOct 15, 2015 1 tablet Procedures Procedure Coding System Code Date INTRAORL-PERIAPICAL 1 FILM 13236 CPT-4 D0220 Sep 29, 2015 BITEWING - SINGLE FILM CPT-4 D0270 Sep 29, 2015 LTD ORAL EVALUATION - PROBLEM FOCUS CPT-4 D0140 Sep 29, 2015 EXTRAC ERUPTED TOOTH/EXPOSED ROOT CPT-4 D7140 Sep 29, 2015 EXTRAC ERUPTED TOOTH/EXPOSED ROOT CPT-4 D7140 Sep 29, 2015 Vital Signs Date/Time: Sep 29, 2015 Blood Pressure Diastolic 77 mmHg Blood Pressure Systolic 111 mmHg Results No Known Results Summary Purpose eClinicalWorks Submission
--- OUTSIDE RECORDS SUMMARY | 2017-02-05 08:51 | XMS REPORT ---
Author Author FLO GONZALEZ Organization eClinicalWorks Address Unknown Phone Unavailable Care Team Providers Care Radio Program Checker Name Role Phone FLO GONZALEZ CP Unavailable Allergies, Adverse Reactions, Alerts Substance Reaction Event Type Thioridazine HCl tachycardia Drug Allergy Penicillin V Potassium rash Drug Allergy Diclofenac Sodium nausea Drug Allergy Depakote fatigue Drug Allergy Problems Problem Type Condition Code Onset Dates Condition Status Problem Unspecified mood [affective] disorder F39 Active Problem Seizure-like activity R56.9 Active Problem Generalized anxiety disorder F41.1 Active Assessment Seizure-like activity R56.9 Active Assessment Irregular periods N92.6 Active Problem Visual changes H53.9 Active Problem Bilateral low back pain without sciatica M54.5 Active Medications Medication Code System Code Instructions Start Date End Date Status Dosage Lexapro [facility] [place] [address]-83 20 MG Orally Once a day Oct 17, 2014 1 tablet Seroquel XR [facility] [place] [address]-66 200 MG Orally Once a day at bedtime - take one tablet X 7 days, then take 2 tablets Sep 17, 2015 2 tablet in the evening Xanax [facility] [place] [address]-62 1 MG Orally Three times a day PRN May 22, 2015 1 tablet Naproxen [facility] [place] [address]-64 500 MG Orally every 12 hrs 1 tablet as needed Procedures Procedure Coding System Code Date URINE TEST CPT-4 80129 Oct 21, 2015 Office Visit, Est Pt., Level 4 CPT-4 41537 Oct 21, 2015 Vital Signs Date/Time: Oct 21, 2015 Temperature 98.4 F Weight 122.7 lbs Height 66 in BMI 19.80 Index Blood Pressure Diastolic 60 mmHg Blood Pressure Systolic 92 mmHg Cardiac Monitoring Heart Rate 96 bpm Results Name Result Date Reference Range Unit Abnormality Flag TEST, URINE (IN HOUSE) ----RESULTS Negative [id number] ----Lot # [id number] ----Control + [id number] ----Exp date 20151021 Summary Purpose eClinicalWorks Submission
--- OUTSIDE RECORDS SUMMARY | 2017-02-05 08:53 | XMS REPORT ---
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 Problem Dysuria 788.1 Active Problem Major depressive disorder, recurrent episode, in partial or unspecified remission 296.35 Active Problem Impulse control disorder, unspecified 312.30 Active Problem Abdominal pain, right upper quadrant [...] Instructions Start Date End Date Status Dosage Seroquel XR [facility] [address]-25 200 MG Orally Once a day at bedtime - take one tablet X 7 days, then take 2 tablets Sep 17, 2015 2 tablet in the evening Naproxen ND 0 not defined Xanax [facility] [address]-03 1 MG Orally Three times a day PRN May 22, 2015 1 tablet Lexapro [facility] [address]-13 20 MG Orally Once a day Oct 17, 2014 1 tablet Procedures Procedure Coding System Code Date Office Visit, Est Pt., Level 3 CPT-4 96888 Oct 12, 2015 Vital Signs Date/Time: Oct 12, 2015 Temperature 98.8 F Weight 121.0 lbs Height 66 in BMI 19.53 Index Blood Pressure Diastolic 78 mmHg Blood Pressure Systolic 122 mmHg Cardiac Monitoring Heart Rate 128 bpm Results No Known Results Summary Purpose eClinicalWorks Submission
--- OUTSIDE RECORDS SUMMARY | 2017-02-05 08:53 | XMS REPORT ---
Author NICOLA Paredes [facility] e[employer] Address Unknown Phone Unavailable Care Team Providers Care Bridge Maintenance Worker Name Role Phone NICOLA MANUEL CP Unavailable Allergies No Known Allergies Problems Problem Type Condition Code Onset Dates Condition Status Problem Seizure-like activity R56.9 Active Problem Visual changes H53.9 Active Problem Unspecified mood [affective] disorder F39 Active Problem Bilateral low back pain without sciatica M54.5 Active Medications No Known Medications Results No Known Results Summary Purpose eClinicalWorks Submission
--- OUTSIDE RECORDS SUMMARY | 2017-02-05 08:55 | XMS REPORT ---
Author Author FLO GONZALEZ [facility] eClinicalWorks Address Unknown Phone Unavailable Care Team Providers Care Salad Chef Name Role Phone FLO GONZALEZ CP Unavailable [...] 795.03 Active Problem Lumbago 724.2 Active Problem Posttraumatic stress disorder 309.81 Active Problem Unspecified backache 724.5 Active Problem Bipolar I disorder, most recent episode (or current) mixed, severe, specified as with psychotic behavior 296.64 Active Problem Scanty or infrequent menstruation 626.1 Active Problem Special screening examination, human papillomavirus [HPV] V73.81 Active Problem Health examination of defined subpopulation V70.5 Active Problem Nondependent tobacco use disorder 305.1 Active Problem Other chronic pain 338.29 Active Problem Personal history of tobacco use, presenting hazards to health V15.82 Active Problem Screening for malignant neoplasm of the cervix V76.2 Active Problem Screening examination for venereal disease V74.5 Active Assessment Bilateral low back pain without sciatica M54.5 Active Assessment Visual changes H53.9 Active Problem 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 Active Problem Dysuria 788.1 Active Problem Encounter for long-term (current) use of other medications V58.69 Active Problem Impulse control disorder, unspecified 312.30 Active Problem Abdominal pain, right upper quadrant 789.01 Active Problem Abdominal pain, unspecified site 789.00 Active Problem Abdominal pain, epigastric 789.06 Active Problem Bilateral low back pain without sciatica M54.5 Active Problem Underweight 783.22 Active Problem Visual changes H53.9 Active Problem STATE HEP A (ADULT) DX V05.3 Active Problem Nausea alone 787.02 Active Problem Endometriosis, site unspecified 617.9 Active Problem Loss of weight 783.21 Active Problem Unspecified symptom associated with female genital organs 625.9 Active Problem Hand pain, right 729.5 Active Problem Generalized anxiety disorder 300.02 Active Problem Unspecified high-risk V23.9 Active Problem Major depressive disorder, recurrent episode, in partial or unspecified remission 296.35 Active Problem Unspecified procreative management V26.9 Active Problem Absence of menstruation 626.0 Active Problem Bipolar I disorder, most recent episode (or current) mixed, moderate 296.62 Active Problem Decreased libido 799.81 Active Problem Spontaneous ecchymoses 782.7 Active Problem Major depressive disorder, recurrent episode, unspecified 296.30 Active Medications Medication Code System Code Instructions Start Date End Date Status Dosage Baclofen [facility] [address]-77 10 MG Orally Once a day at bed prn Aug 25, 2015 Sep 08, 2015 1 tablet with food or milk Naproxen [facility] [address]-44 500 MG Orally every 12 hrs Aug 25, 2015Aug 1 tablet as needed Lexapro [facility] [address]-31 20 MG Orally Once a day Oct 17, 2014 1 tablet Xanax [facility] [address]-50 1 MG Orally Three times a day PRN May 22, 2015 1 tablet Procedures Procedure Coding System Code Date Office Visit, Est Pt., Level 3 CPT-4 99008 Aug 25, 2015 X-RAY EXAM OF LOWER SPINE CPT-4 85086 Aug 25, 2015 Vital Signs Date/Time: Aug 25, 2015 Temperature 98.8 F Weight 114.6 lbs Height 66 in BMI 18.49 Index Blood Pressure Diastolic 68 mmHg Blood Pressure Systolic 112 mmHg Cardiac Monitoring Heart Rate 92 bpm Results No Known Results Summary Purpose eClinicalWorks Submission
--- OUTSIDE RECORDS SUMMARY | 2017-02-05 08:56 | XMS REPORT ---
Author Author FLO GONZALEZ Organization [employer] Address Unknown Phone Unavailable Care Team Providers Care Special Skills Officer Name Role Phone FLO GONZALEZ CP Unavailable Allergies No Known Allergies Problems [...] self-harm Z91.5 Active Problem Underweight R63.6 Active Problem Anxiety associated with depression F41.8 Active Problem Endometriosis N80.9 Active Medications Medication Code System Code Instructions Start Date End Date Status Dosage Lexapro [facility] [address]-43 20 MG Orally Once a day Oct 17, 2014 1 tablet Naproxen [facility] [address]-97 500 MG Orally every 12 hrs 1 tablet as needed Seroquel [facility] [address]-53 200 MG Orally Once a day Nov 03, 2015 1 tablet at bedtime Xanax [facility] [address]-94 1 MG Orally Three times a day PRN May 22, 2015 1 tablet Results No Known Results Summary Purpose eClinicalWorks Submission
--- OUTSIDE RECORDS SUMMARY | 2017-02-05 08:56 | XMS REPORT ---
Author Author GODWIN SEVILLA [facility] eClinicalWorks Address Unknown Phone Unavailable Care Team Providers Care Director Of Materials Name Role Phone GODWIN SEVILLA Unavailable Allergies [...]
--- OUTSIDE RECORDS SUMMARY | 2017-02-05 08:57 | XMS REPORT ---
Author Author GODWIN SEVILLA [facility] eClinicalWorks Address Unknown Phone Unavailable Care Team Providers Care Military Pay Clerk Name Role Phone GODWIN SEVILLA CP Unavailable [...]
--- OUTSIDE RECORDS SUMMARY | 2017-02-05 08:57 | XMS REPORT ---
Author Author СВЕТЛАНА KING [facility] eClinicalWorks Address Unknown Phone Unavailable Care Team Providers Care Prenatal Nurse Name Role Phone СВЕТЛАНА KING Unavailable Allergies, Adverse Reactions, Alerts Substance Reaction [...] Problem Hand pain, right 729.5 Active Assessment Back pain M54.9 Active Problem Visual changes H53.9 Active Assessment Anxiety F41.9 Active Problem Bilateral low back pain without [...] use of other medications V58.69 Active Medications Medication Code System Code Instructions Start Date End Date Status Dosage Seroquel XR [facility] [address]-59 200 MG Orally Once a day at bedtime - take one tablet X 7 days, then take 2 tablets Sep 17, 2015 2 tablet in the evening Naproxen ND 0 not defined Xanax [facility] [address]-84 1 MG Orally Three times a day PRN May 22, 2015 1 tablet Klonopin [facility] [address]-45 1 MG Orally Twice a day Oct 15, 2015 1 tablet Lexapro [facility] [address]-99 20 MG Orally Once a day Oct 17, 2014 1 tablet Procedures Procedure Coding System Code Date DRUG SCREEN NON TLC DEVICES CPT-4 03108 Oct 15, 2015 Office Visit, Est Pt., Level 3 CPT-4 73200 Oct 15, 2015 Vital Signs Date/Time: Oct 15, 2015 Temperature 98.7 F Weight 128 lbs Height 66 in BMI 20.66 Index Blood Pressure Diastolic 70 mmHg Blood Pressure Systolic 118 mmHg Cardiac Monitoring Heart Rate 100 bpm Results Name Result Date Reference Range Unit Abnormality Flag URINE DRUG SCREEN (IN HOUSE) ----MDMA negative 20151015 ----TCA positive 20151015 ----BENZO positive 20151015 ----OPIATE negative 20151015 ----THC negative 20151015 ----MTD negative 20151015 ----AMPH negative 20151015 ----BAR negative 20151015 ----PCP negative 20151015 ----MAMP negative 20151015 ----OXY negative 20151015 ----Lot # [id number] ----Exp date [id number] ----Control + [id number] ----COCAINE negative 20151015 Summary Purpose eClinicalWorks Submission
--- OUTSIDE RECORDS SUMMARY | 2017-02-05 08:59 | XMS REPORT ---
Author Author FELICIA RESTREPO [employer] Address Unknown Phone Unavailable Care Team Providers Care Brand Strategy Manager Name Role Phone FELICIA RESTREPO Unavailable Allergies, Adverse Reactions, Alerts Substance Reaction Event Type Thioridazine HCl tachycardia Drug Allergy Penicillin V Potassium rash Drug Allergy Diclofenac Sodium nausea Drug Allergy Depakote fatigue Drug Allergy Problems Problem Type Condition Code Onset Dates Condition Status Assessment History of abnormal cervical Pap smear Z87.898 Active Assessment Anxiety associated with depression F41.8 Active Assessment History of PCOS Z87.42 Active Assessment Desire for Z31.9 Active Assessment History of endometriosis Z87.42 Active Assessment Vaginal discharge N89.8 Active Assessment Unprotected sexual intercourse Z72.51 Active Assessment Lower abdominal pain R10.30 Active Assessment Seizure-like activity R56.9 Active Problem Underweight R63.6 Active Assessment Encounter for screening for malignant neoplasm of cervix Z12.4 Active Problem Endometriosis N80.9 Active Assessment Well woman exam Z01.419 Active Problem Spontaneous bruising R23.3 Active Problem [...] G89.29 Active Problem Infrequent menses N91.5 Active Assessment Poor dentition K08.8 Active Problem Tobacco use Z72.0 Active Assessment History of self-harm Z91.5 Active Problem Poor dentition K08.8 Active Assessment Hot flashes N95.1 Active Problem Unspecified mood [affective] disorder F39 Active Assessment Tobacco use Z72.0 Active Problem Generalized anxiety disorder F41.1 Active Problem History of abnormal cervical Pap smear Z87.898 Active Problem Desire for Z31.9 Active Problem History of self-harm Z91.5 Active Problem Anxiety associated with depression F41.8 Active Medications Medication Code System Code Instructions Start Date End Date Status Dosage Naproxen [facility] [address]-81 500 MG Orally every 12 hrs 1 tablet as needed Seroquel XR [facility] [address]-75 200 MG Orally Once a day at bedtime - take one tablet X 7 days, then take 2 tablets Sep 17, 2015 2 tablet in the evening Xanax [facility] [address]-61 1 MG Orally Three times a day PRN May 22, 2015 1 tablet Lexapro [facility] [address]-67 20 MG Orally Once a day Oct 17, 2014 1 tablet Metronidazole [facility] [address]-67 0.75 % Vaginal Once a day Oct 26, 2015 Oct 31, 2015 1 application at bedtime Procedures Procedure Coding System Code Date No Charge CPT-4 59789 Oct 26, 2015 TRICHOMONAS VAGIN, DIR PROBE CPT-4 97342 Oct 26, 2015 URINE TEST CPT-4 79553 Oct 26, 2015 SPECIMEN HANDLING CPT-4 07122 Oct 26, 2015 CULTURE, BACTERIA, OTHER CPT-4 46017 Oct 26, 2015 Preventive Care Est Pt. Age 18-39 CPT-4 09860 Oct 26, 2015 Vital Signs Date/Time: Oct 26, 2015 Temperature 98.5 F Weight 124.5 lbs Height 66 in BMI 20.09 Index Blood Pressure Diastolic 78 mmHg Blood Pressure Systolic 106 mmHg Cardiac Monitoring Heart Rate 84 bpm Results Name Result Date Reference Range Unit Abnormality Flag TEST, URINE (IN HOUSE) ----RESULTS negative [id number] ----Lot # [id number] ----Control + 20151026 ----Exp date 20151026 TRICHOMONAS (IN HOUSE) ----Exp date 20151026 ----Control + 20151026 ----Lot # [id number] ----TRICHOMONAS negative 20151026 Summary Purpose eClinicalWorks Submission
--- OUTSIDE RECORDS SUMMARY | 2017-02-05 09:00 | XMS REPORT ---
Author Author FLO GONZALEZ [facility] eClinicalWorks Address Unknown Phone Unavailable Care Team Providers Care Autobody Technician Name Role Phone FLO GONZALEZ CP Unavailable [...] Problem Other chronic pain 338.29 Active Assessment Bilateral low back pain without sciatica M54.5 Active Problem 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 Active Problem Dysuria 788.1 Active Problem Major depressive disorder, recurrent episode, in partial or unspecified remission 296.35 Active Problem Impulse control disorder, unspecified 312.30 Active Assessment Seizure-like activity R56.9 Active Problem Abdominal pain, right upper quadrant [...] Instructions Start Date End Date Status Dosage Xanax [facility] [address]-87 1 MG Orally Three times a day PRN May 22, 2015 1 tablet Lexapro [facility] [address]-39 20 MG Orally Once a day Oct 17, 2014 1 tablet Cyclobenzaprine HCl [facility] [address]-72 10 MG Orally 2 times a day prn SepOct 15, 2015 1 tablet Procedures Procedure Coding System Code Date COMPLETE CBC W/AUTO DIFF WBC CPT-4 09995 Sep 15, 2015 ASSAY OF MAGNESIUM CPT-4 93624 Sep 15, 2015 COMPREHEN METABOLIC PANEL CPT-4 02095 Sep 15, 2015 Office Visit, Est Pt., Level 3 CPT-4 08916 Sep 15, 2015 ASSAY THYROID STIM HORMONE CPT-4 53388 Sep 15, 2015 VENIPUNCT, ROUTINE* CPT-4 21275 Sep 15, 2015 Vital Signs Date/Time: Sep 15, 2015 Temperature 98.8 F Weight 112.5 lbs Height 66 in BMI 18.16 Index Blood Pressure Diastolic 66 mmHg Blood Pressure Systolic 98 mmHg Cardiac Monitoring Heart Rate 76 bpm Results Name Result Date Reference Range Unit Abnormality Flag ROUTINE VENIPUNCTURE Summary Purpose eClinicalWorks Submission
--- OUTSIDE RECORDS SUMMARY | 2017-02-05 09:10 | XMS REPORT | Continuity of Care Document ---
Author Author [facility] Address Unknown Phone Unavailable Allergies Active Description Code Type Severity Reaction Onset Reported/Identified Relationship to Patient Clinical Status Yes Penicillins Drug Allergy N/A N/A 12/17/2009 Yes Penicillins Drug Allergy 12/17/2009 Yes diclofenac sodium 75 mg Tablet, Delayed Release (E.C.) Drug Allergy N/A N/A 12/29/2011 Yes diclofenac sodium 75 mg Tablet, Delayed Release (E.C.) Drug Allergy 12/29/2011 Yes thioridazine 25 mg tablet Drug Allergy N/A N/A 05/09/2013 Yes Penicillins [id number] Drug Allergy Mild PT ABLE TO TAKE 03/26/2014 Yes Depakote 250 mg tablet,delayed release (DR/EC) Drug Allergy N/A N/A 12/18/2014 Yes diclofenac [id number] Drug Allergy Unknown N/A 01/21/2015 Yes divalproex sodium [id number] Drug Allergy Unknown N/A 08/26/2015 Medications Problems Date Dx Coded Attending Type Code Diagnosis Diagnosed By 06/20/2008 WOLF JAMA MD 296.90 Mood Disorder 06/20/2008 WOLF JAMA MD 296.90 Mood Disorder 06/20/2008 296.90 Mood Disorder 06/20/2008 NICOLA MANUEL DO 296.90 Mood Disorder 06/20/2008 JASON SOLANO DO 296.90 Mood Disorder 06/20/2008 296.90 Mood Disorder 06/20/2008 296.90 Mood Disorder 06/20/2008 296.90 Mood Disorder 06/20/2008 296.90 Mood Disorder 06/20/2008 296.90 Mood Disorder 06/20/2008 296.90 Mood Disorder 06/20/2008 296.90 Mood Disorder 06/20/2008 296.90 Mood Disorder 06/20/2008 296.90 Mood Disorder 06/20/2008 296.90 Mood Disorder 06/20/2008 296.90 Mood Disorder 06/20/2008 MANUEL DO, NICOLA K 296.90 Mood Disorder 06/20/2008 JASON HUNTER APRN D 296.90 Mood Disorder 06/20/2008 WOLF JAMA MD 296.90 Mood Disorder 06/20/2008 NICOLA MANUEL DO K 296.90 Mood Disorder 06/20/2008 IDALIA JENKINSKELY Shin Chrissie 296.90 Mood Disorder 06/20/2008 GARTON RN EMERGENCY, JASON D 296.90 Mood Disorder 06/20/2008 GARMYRA RN EMERGENCYJASON Kirkpatrick D 296.90 Mood Disorder 06/20/2008 GARTON RN EMERGENCY, JASON D 296.90 Mood Disorder 06/20/2008 WOLF JAMA MD 296.90 Mood Disorder 06/20/2008 ROEL RN EMERGENCY, GODWIN 296.90 Mood Disorder 06/20/2008 MADL RN EMERGENCY, FLO L 296.90 Mood Disorder 06/20/2008 ROEL RN EMERGENCY, GODWIN 296.90 Mood Disorder 06/20/2008 MADL RN EMERGENCY, FLO L 296.90 Mood Disorder 06/20/2008 ROEL RN EMERGENCY, GODWIN 296.90 Mood Disorder 06/20/2008 ROEL RN EMERGENCY, GODWIN 296.90 Mood Disorder 06/20/2008 MADL RN EMERGENCY, FLO L 296.90 Mood Disorder 06/20/2008 MADL RN EMERGENCY, FLO L 296.90 Mood Disorder 06/20/2008 ROEL RN EMERGENCY, GODWIN 296.90 Mood Disorder 06/20/2008 SONNY RN EMERGENCY, ELIAS A 296.90 Mood Disorder 06/20/2008 [facility], DEMOND R 296.90 Mood Disorder 06/20/2008 MADL RN EMERGENCY, FLO L 296.90 Mood Disorder 06/20/2008 JOSE SILVERIO DDS 296.90 Mood Disorder 06/20/2008 [facility], DEMOND R 296.90 Mood Disorder 06/20/2008 [facility], DEMOND R 296.90 Mood Disorder 06/20/2008 ROEL RN EMERGENCY, GODWIN 296.90 Mood Disorder 06/20/2008 NICOLA MANUEL DO K 296.90 Mood Disorder 06/20/2008 ROEL RN EMERGENCY, GODWIN 296.90 Mood Disorder 06/20/2008 ROEL RN EMERGENCY, GODWIN 296.90 Mood Disorder 10/03/2008 WOLF JAMA MD 465.9 Upper Respiratory Infection 10/03/2008 WOLF JAMA MD 465.9 Upper Respiratory Infection 10/03/2008 465.9 Upper Respiratory Infection 10/03/2008 NICOLA MANUEL DO K 465.9 Upper Respiratory Infection 10/03/2008 KRYSNIK DO JASON Mathew 465.9 Upper Respiratory Infection 10/03/2008 465.9 Upper Respiratory Infection 10/03/2008 465.9 Upper Respiratory Infection 10/03/2008 465.9 Upper Respiratory Infection 10/03/2008 465.9 Upper Respiratory Infection 10/03/2008 465.9 Upper Respiratory Infection 10/03/2008 465.9 Upper Respiratory Infection 10/03/2008 465.9 Upper Respiratory Infection 10/03/2008 465.9 Upper Respiratory Infection 10/03/2008 465.9 Upper Respiratory Infection 10/03/2008 465.9 Upper Respiratory Infection 10/03/2008 465.9 Upper Respiratory Infection 10/03/2008 NICOLA MANUEL DO K 465.9 Upper Respiratory Infection 10/03/2008 JASON HUNTER APRN 465.9 Upper Respiratory Infection 10/03/2008 WOLF JAMA MD 465.9 Upper Respiratory Infection 10/03/2008 NICOLA MANUEL DO 465.9 Upper Respiratory Infection 10/03/2008 KELY FRIEDMAN DDS 465.9 Upper Respiratory Infection 10/03/2008 JASON HUNTER APRN 465.9 Upper Respiratory Infection 10/03/2008 JASON HUNTER APRN 465.9 Upper Respiratory Infection 10/03/2008 JASON HUNTER APRN 465.9 Upper Respiratory Infection 10/03/2008 WOLF JAMA MD 465.9 Upper Respiratory Infection 10/03/2008 ROEL RN EMERGENCY, GODWIN 465.9 Upper Respiratory Infection 10/03/2008 MADL RN EMERGENCY, FLO L 465.9 Upper Respiratory Infection 10/03/2008 ROEL RN EMERGENCY GODWIN 465.9 Upper Respiratory Infection 10/03/2008 MADL RN EMERGENCY, FLO L 465.9 Upper Respiratory Infection 10/03/2008 ROEL RN EMERGENCY, GODWIN 465.9 Upper Respiratory Infection 10/03/2008 ROEL RN EMERGENCY, GODWIN 465.9 Upper Respiratory Infection 10/03/2008 MADTima RN EMERGENCY, FLO L 465.9 Upper Respiratory Infection 10/03/2008 MADL RN EMERGENCY, FLO L 465.9 Upper Respiratory Infection 10/03/2008 ROEL RN EMERGENCY, GODWIN 465.9 Upper Respiratory Infection 10/03/2008 SONNY RN EMERGENCY, ELIAS A 465.9 Upper Respiratory Infection 10/03/2008 [facility], DEMOND R 465.9 Upper Respiratory Infection 10/03/2008 MADL RN EMERGENCY, FLO L 465.9 Upper Respiratory Infection 10/03/2008 SILVERIO DDS, JOSE 465.9 Upper Respiratory Infection 10/03/2008 [facility], DEMOND R 465.9 Upper Respiratory Infection 10/03/2008 [facility], DEMOND R 465.9 Upper Respiratory Infection 10/03/2008 ROEL RN EMERGENCY, GODWIN 465.9 Upper Respiratory Infection 10/03/2008 NICOLA MANUEL DO 465.9 Upper Respiratory Infection 10/03/2008 ROEL RN EMERGENCY, GODWIN 465.9 Upper Respiratory Infection 10/03/2008 ROEL RN EMERGENCY, GODWIN 465.9 Upper Respiratory Infection 11/27/2008 WOLF JAMA MD V58.69 Medication High Risk 11/27/2008 WOLF JAMA MD V58.69 Medication High Risk 11/27/2008 V58.69 Medication High Risk 11/27/2008 NICOLA MANUEL DO V58.69 Medication High Risk 11/27/2008 JASON SOLANO DO V58.69 Medication High Risk 11/27/2008 V58.69 Medication High Risk 11/27/2008 V58.69 Medication High Risk 11/27/2008 V58.69 Medication High Risk 11/27/2008 V58.69 Medication High Risk 11/27/2008 V58.69 Medication High Risk 11/27/2008 V58.69 Medication High Risk 11/27/2008 V58.69 Medication High Risk 11/27/2008 V58.69 Medication High Risk 11/27/2008 V58.69 Medication High Risk 11/27/2008 V58.69 Medication High Risk 11/27/2008 V58.69 Medication High Risk 11/27/2008 NICOLA MANUEL DO V58.69 Medication High Risk 11/27/2008 JASON HUNTER APRN V58.69 Medication High Risk 11/27/2008 WOLF JAMA MD V58.69 Medication High Risk 11/27/2008 MANUEL DO, NICOLA K V58.69 Medication High Risk 11/27/2008 WHITE DDS, KELY J V58.69 Medication High Risk 11/27/2008 GARMYRA RN EMERGENCYJASON Kirkpatrick V58.69 Medication High Risk 11/27/2008 GARTON RN EMERGENCYJASON Kirkpatrick V58.69 Medication High Risk 11/27/2008 JASON HUNTER APRN V58.69 Medication High Risk 11/27/2008 WOLF JAMA MD V58.69 Medication High Risk 11/27/2008 ROEL RN EMERGENCY, GODWIN V58.69 Medication High Risk 11/27/2008 MADL RN EMERGENCY, FLO L V58.69 Medication High Risk 11/27/2008 ROEL RN EMERGENCY, GODWIN V58.69 Medication High Risk 11/27/2008 MADL RN EMERGENCY, FLO L V58.69 Medication High Risk 11/27/2008 ROEL RN EMERGENCY, GODWIN V58.69 Medication High Risk 11/27/2008 ROEL RN EMERGENCY, GODWIN V58.69 Medication High Risk 11/27/2008 MADL RN EMERGENCY, FLO L V58.69 Medication High Risk 11/27/2008 MADL RN EMERGENCY, FLO L V58.69 Medication High Risk 11/27/2008 ROEL RN EMERGENCY, GODWIN V58.69 Medication High Risk 11/27/2008 SONNY MENG ELIAS A V58.69 Medication High Risk 11/27/2008 [facility], DEMOND R V58.69 Medication High Risk 11/27/2008 MADL RN EMERGENCY, FLO L V58.69 Medication High Risk 11/27/2008 NUSRAT DDSSALVADORW V58.69 Medication High Risk 11/27/2008 [facility], DEMOND R V58.69 Medication High Risk 11/27/2008 [facility], DEMOND R V58.69 Medication High Risk 11/27/2008 ROEL RN EMERGENCY, GODWIN V58.69 Medication High Risk 11/27/2008 MAR DOMARALA K V58.69 Medication High Risk 11/27/2008 ROEL RN EMERGENCY, GODWIN V58.69 Medication High Risk 11/27/2008 ROEL RN EMERGENCY, GODWIN V58.69 Medication High Risk 07/01/2009 WOLF JAMA MD 296.32 MO DEPRESSIVE RECURRENT MODERATE 07/01/2009 WOLF JAMA MD 300.00 AN ANXIETY UNSPEC 07/01/2009 WOLF JAMA MD 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 07/01/2009 WOLF JAMA MD 296.32 MO DEPRESSIVE RECURRENT MODERATE 07/01/2009 WOLF JAMA MD 300.00 AN ANXIETY UNSPEC 07/01/2009 WOLF JAMA MD 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 07/01/2009 296.32 MO DEPRESSIVE RECURRENT MODERATE 07/01/2009 300.00 AN ANXIETY UNSPEC 07/01/2009 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 07/01/2009 MANUEL DO NICOLA K 296.32 MO DEPRESSIVE RECURRENT MODERATE 07/01/2009 MANUEL DO NICOLA K 300.00 AN ANXIETY UNSPEC 07/01/2009 MANUEL DO NICOLA K 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 07/01/2009 JASON SOLANO DO 296.32 MO DEPRESSIVE RECURRENT MODERATE 07/01/2009 JASON SOLANO DO F 300.00 AN ANXIETY UNSPEC 07/01/2009 JASON SOLANO DO F 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 07/01/2009 296.32 MO DEPRESSIVE RECURRENT MODERATE 07/01/2009 300.00 AN ANXIETY UNSPEC 07/01/2009 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 07/01/2009 296.32 MO DEPRESSIVE RECURRENT MODERATE 07/01/2009 300.00 AN ANXIETY UNSPEC 07/01/2009 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 07/01/2009 296.32 MO DEPRESSIVE RECURRENT MODERATE 07/01/2009 300.00 AN ANXIETY UNSPEC 07/01/2009 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 07/01/2009 296.32 MO DEPRESSIVE RECURRENT MODERATE 07/01/2009 300.00 AN ANXIETY UNSPEC 07/01/2009 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 07/01/2009 296.32 MO DEPRESSIVE RECURRENT MODERATE 07/01/2009 300.00 AN ANXIETY UNSPEC 07/01/2009 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 07/01/2009 296.32 MO DEPRESSIVE RECURRENT MODERATE 07/01/2009 300.00 AN ANXIETY UNSPEC 07/01/2009 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 07/01/2009 296.32 MO DEPRESSIVE RECURRENT MODERATE 07/01/2009 300.00 AN ANXIETY UNSPEC 07/01/2009 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 07/01/2009 296.32 MO DEPRESSIVE RECURRENT MODERATE 07/01/2009 300.00 AN ANXIETY UNSPEC 07/01/2009 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 07/01/2009 296.32 MO DEPRESSIVE RECURRENT MODERATE 07/01/2009 300.00 AN ANXIETY UNSPEC 07/01/2009 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 07/01/2009 296.32 MO DEPRESSIVE RECURRENT MODERATE 07/01/2009 300.00 AN ANXIETY UNSPEC 07/01/2009 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 07/01/2009 296.32 MO DEPRESSIVE RECURRENT MODERATE 07/01/2009 300.00 AN ANXIETY UNSPEC 07/01/2009 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 07/01/2009 NICOLA MANUEL DO K 296.32 MO DEPRESSIVE RECURRENT MODERATE 07/01/2009 MARAL MANUEL DOA K 300.00 AN ANXIETY UNSPEC 07/01/2009 MARAL MANUEL DOA K 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 07/01/2009 JASON HUNTER APRN 296.32 MO DEPRESSIVE RECURRENT MODERATE 07/01/2009 JASON HUNTER APRN 300.00 AN ANXIETY UNSPEC 07/01/2009 JASON HUNTER APRN 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 07/01/2009 WOLF JAMA MD 296.32 MO DEPRESSIVE RECURRENT MODERATE 07/01/2009 WOLF JAMA MD 300.00 AN ANXIETY UNSPEC 07/01/2009 WOLF JAMA MD 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 07/01/2009 MARAL MANUEL DOA K 296.32 MO DEPRESSIVE RECURRENT MODERATE 07/01/2009 NICOLA MANUEL DO K 300.00 AN ANXIETY UNSPEC 07/01/2009 MARAL MANUEL DOA K 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 07/01/2009 WHITE DDS, KELY J 296.32 MO DEPRESSIVE RECURRENT MODERATE 07/01/2009 WHITE DDS, KELY J 300.00 AN ANXIETY UNSPEC 07/01/2009 WHITE DDS, KELY J 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 07/01/2009 JASON HUNTER APRN 296.32 MO DEPRESSIVE RECURRENT MODERATE 07/01/2009 JASON HUNTER APRN 300.00 AN ANXIETY UNSPEC 07/01/2009 JASON HUNTER APRN 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 07/01/2009 JASON HUNTER APRN 296.32 MO DEPRESSIVE RECURRENT MODERATE 07/01/2009 JASON HUNTER APRN 300.00 AN ANXIETY UNSPEC 07/01/2009 JASON HUNTER APRN 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 07/01/2009 JASON HUNTER APRN 296.32 MO DEPRESSIVE RECURRENT MODERATE 07/01/2009 JASON HUNTER APRN 300.00 AN ANXIETY UNSPEC 07/01/2009 JASON HUNTER APRN 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 07/01/2009 WOLF JAMA MD 296.32 MO DEPRESSIVE RECURRENT MODERATE 07/01/2009 WOLF JAMA MD 300.00 AN ANXIETY UNSPEC 07/01/2009 WOLF JAMA MD 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 07/01/2009 ROEL RN EMERGENCY, GODWIN 296.32 MO DEPRESSIVE RECURRENT MODERATE 07/01/2009 ROEL RN EMERGENCY, GODWIN 300.00 AN ANXIETY UNSPEC 07/01/2009 ROEL RN EMERGENCY, GODWIN 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 07/01/2009 MADL RN EMERGENCY, FLO L 296.32 MO DEPRESSIVE RECURRENT MODERATE 07/01/2009 MADL RN EMERGENCY, FLO L 300.00 AN ANXIETY UNSPEC 07/01/2009 MADL RN EMERGENCY, FLO L 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 07/01/2009 ROEL RN EMERGENCY, GODWIN 296.32 MO DEPRESSIVE RECURRENT MODERATE 07/01/2009 ROEL RN EMERGENCY, GODWIN 300.00 AN ANXIETY UNSPEC 07/01/2009 ROEL RN EMERGENCY, GODWIN 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 07/01/2009 MADL RN EMERGENCY, FLO L 296.32 MO DEPRESSIVE RECURRENT MODERATE 07/01/2009 MADL RN EMERGENCY, FLO L 300.00 AN ANXIETY UNSPEC 07/01/2009 MADL RN EMERGENCY, FLO L 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 07/01/2009 ROEL RN EMERGENCY, GODWIN 296.32 MO DEPRESSIVE RECURRENT MODERATE 07/01/2009 OREL RN EMERGENCY, GODWIN 300.00 AN ANXIETY UNSPEC 07/01/2009 ROEL RN EMERGENCY, GODWIN 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 07/01/2009 ROEL RN EMERGENCY, GODWIN 296.32 MO DEPRESSIVE RECURRENT MODERATE 07/01/2009 ROEL RN EMERGENCY, GODWIN 300.00 AN ANXIETY UNSPEC 07/01/2009 ROEL RN EMERGENCY, GODWIN 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 07/01/2009 MADL RN EMERGENCY, FLO L 296.32 MO DEPRESSIVE RECURRENT MODERATE 07/01/2009 MADL RN EMERGENCY, FLO L 300.00 AN ANXIETY UNSPEC 07/01/2009 MADL RN EMERGENCY, FLO L 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 07/01/2009 BRYANL ROSITA MENGA L 296.32 MO DEPRESSIVE RECURRENT MODERATE 07/01/2009 ROSITA GONZALEZ APRNA L 300.00 AN ANXIETY UNSPEC 07/01/2009 BRYANL ROSITA MENGA L 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 07/01/2009 ROEL RN EMERGENCY, GODWIN 296.32 MO DEPRESSIVE RECURRENT MODERATE 07/01/2009 ROEL RN EMERGENCY, GODWIN 300.00 AN ANXIETY UNSPEC 07/01/2009 ROEL RN EMERGENCY, GODWIN 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 07/01/2009 SONNY RN EMERGENCY, ELIAS A 296.32 MO DEPRESSIVE RECURRENT MODERATE 07/01/2009 SONNY RN EMERGENCY, ELIAS A 300.00 AN ANXIETY UNSPEC 07/01/2009 SONNY RN EMERGENCY, ELIAS A 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 07/01/2009 [facility], DEMOND R 296.32 MO DEPRESSIVE RECURRENT MODERATE 07/01/2009 [facility], DEMOND R 300.00 AN ANXIETY UNSPEC 07/01/2009 [facility], DEM[place] R 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 07/01/2009 FLO GONZALEZ APRN L 296.32 MO DEPRESSIVE RECURRENT MODERATE 07/01/2009 FLO GONZALEZ APRN L 300.00 AN ANXIETY UNSPEC 07/01/2009 FLO GONZALEZ APRN L 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 07/01/2009 SILVERIO DDS, JOSE 296.32 MO DEPRESSIVE RECURRENT MODERATE 07/01/2009 SILVERIO DDS, JOSE 300.00 AN ANXIETY UNSPEC 07/01/2009 SILVERIO DDS, JOSE 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 07/01/2009 [facility], DEMOND R 296.32 MO DEPRESSIVE RECURRENT MODERATE 07/01/2009 [facility], DEM[place] R 300.00 AN ANXIETY UNSPEC 07/01/2009 [facility], DEM[place] R 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 07/01/2009 [facility], DEMOND R 296.32 MO DEPRESSIVE RECURRENT MODERATE 07/01/2009 [facility], DEMOND R 300.00 AN ANXIETY UNSPEC 07/01/2009 [facility], DEM[place] R 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 07/01/2009 ROEL RN EMERGENCY, GODWIN 296.32 MO DEPRESSIVE RECURRENT MODERATE 07/01/2009 ROEL RN EMERGENCY, GODWIN 300.00 AN ANXIETY UNSPEC 07/01/2009 ROEL RN EMERGENCY, GODWIN 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 07/01/2009 NICOLA MANUEL DO K 296.32 MO DEPRESSIVE RECURRENT MODERATE 07/01/2009 NICOLA MANUEL DO K 300.00 AN ANXIETY UNSPEC 07/01/2009 NICOLA MANUEL DO K 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 07/01/2009 ROEL RN EMERGENCY, GODWIN 296.32 MO DEPRESSIVE RECURRENT MODERATE 07/01/2009 ROEL RN EMERGENCY, GODWIN 300.00 AN ANXIETY UNSPEC 07/01/2009 ROEL RN EMERGENCY, GODWIN 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 07/01/2009 ROEL RN EMERGENCY, GODWIN 296.32 MO DEPRESSIVE RECURRENT MODERATE 07/01/2009 ROEL RN EMERGENCY, GODWIN 300.00 AN ANXIETY UNSPEC 07/01/2009 ROEL RN EMERGENCY, GODWIN 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 07/16/2009 WOLF JAMA MD 300.01 AN PANIC DIS W/O AGORA 07/16/2009 WOLF JAMA MD 300.01 AN PANIC DIS W/O AGORA 07/16/2009 300.01 AN PANIC DIS W/O AGORA 07/16/2009 NICOLA MANUEL DO 300.01 AN PANIC DIS W/O AGORA 07/16/2009 JASON SOLANO DO 300.01 AN PANIC DIS W/O AGORA 07/16/2009 300.01 AN PANIC DIS W/O AGORA 07/16/2009 300.01 AN PANIC DIS W/O AGORA 07/16/2009 300.01 AN PANIC DIS W/O AGORA 07/16/2009 300.01 AN PANIC DIS W/O AGORA 07/16/2009 300.01 AN PANIC DIS W/O AGORA 07/16/2009 300.01 AN PANIC DIS W/O AGORA 07/16/2009 300.01 AN PANIC DIS W/O AGORA 07/16/2009 300.01 AN PANIC DIS W/O AGORA 07/16/2009 300.01 AN PANIC DIS W/O AGORA 07/16/2009 300.01 AN PANIC DIS W/O AGORA 07/16/2009 300.01 AN PANIC DIS W/O AGORA 07/16/2009 NICOLA MANUEL DO 300.01 AN PANIC DIS W/O AGORA 07/16/2009 JASON HUNTER APRN 300.01 AN PANIC DIS W/O AGORA 07/16/2009 WOLF JAMA MD 300.01 AN PANIC DIS W/O AGORA 07/16/2009 NICOLA MANUEL DO 300.01 AN PANIC DIS W/O AGORA 07/16/2009 KELY FRIEDMAN DDS 300.01 AN PANIC DIS W/O AGORA 07/16/2009 JASON HUNTER APRN 300.01 AN PANIC DIS W/O AGORA 07/16/2009 JASON HUNTER APRN 300.01 AN PANIC DIS W/O AGORA 07/16/2009 JASON HUNTER APRN 300.01 AN PANIC DIS W/O AGORA 07/16/2009 WOLF JAMA MD 300.01 AN PANIC DIS W/O AGORA 07/16/2009 ROEL GODWIN MENG 300.01 AN PANIC DIS W/O AGORA 07/16/2009 MADL ROSITA MENGA L 300.01 AN PANIC DIS W/O AGORA 07/16/2009 ROEL TAQUERIA GODWIN 300.01 AN PANIC DIS W/O AGORA 07/16/2009 MADL RN EMERGENCY, FLO L 300.01 AN PANIC DIS W/O AGORA 07/16/2009 ROEL TAQUERIA GODWIN 300.01 AN PANIC DIS W/O AGORA 07/16/2009 ROEL RN EMERGENCY, GODWIN 300.01 AN PANIC DIS W/O AGORA 07/16/2009 MADL RN EMERGENCY, FLO L 300.01 AN PANIC DIS W/O AGORA 07/16/2009 MADL RN EMERGENCY, FLO L 300.01 AN PANIC DIS W/O AGORA 07/16/2009 ROEL RN EMERGENCY, GODWIN 300.01 AN PANIC DIS W/O AGORA 07/16/2009 SONNY MENG ELIAS A 300.01 AN PANIC DIS W/O AGORA 07/16/2009 [facility], DEM[place] Fernando 300.01 AN PANIC DIS W/O AGORA 07/16/2009 MADL RN EMERGENCY, FLO L 300.01 AN PANIC DIS W/O AGORA 07/16/2009 JOSE SILVERIO DDS 300.01 AN PANIC DIS W/O AGORA 07/16/2009 [facility], DEMOND R 300.01 AN PANIC DIS W/O AGORA 07/16/2009 [facility], DEMOND R 300.01 AN PANIC DIS W/O AGORA 07/16/2009 ROEL RN EMERGENCY, GODWIN 300.01 AN PANIC DIS W/O AGORA 07/16/2009 NICOLA MANUEL DO K 300.01 AN PANIC DIS W/O AGORA 07/16/2009 ROLE RN EMERGENCY, GODWIN 300.01 AN PANIC DIS W/O AGORA 07/16/2009 ROEL RN EMERGENCY, GODWIN 300.01 AN PANIC DIS W/O AGORA 07/25/2009 WOLF JAMA MD 307.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 07/25/2009 WOLF JAMA MD 307.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 07/25/2009 307.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 07/25/2009 NICOLA MANUEL DO 307.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 07/25/2009 JASON SOLANO DO 307.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 07/25/2009 307.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 07/25/2009 307.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 07/25/2009 307.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 07/25/2009 307.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 07/25/2009 307.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 07/25/2009 307.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 07/25/2009 307.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 07/25/2009 307.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 07/25/2009 307.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 07/25/2009 307.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 07/25/2009 307.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 07/25/2009 NICOLA MANUEL DO 307.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 07/25/2009 JASON HUNTER APRN 307.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 07/25/2009 WOLF JAMA MD 307.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 07/25/2009 NICOLA MANUEL DO 307.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 07/25/2009 KELY FRIEDMAN DDS 307.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 07/25/2009 JASON HUNTER APRN 307.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 07/25/2009 DALE RN EMERGENCY, JASON Steel 307.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 07/25/2009 DALE MENG, JASON Steel 307.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 07/25/2009 WOLF JAMA MD 307.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 07/25/2009 ROEL RN EMERGENCY, GODWIN 307.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 07/25/2009 MADL RN EMERGENCY, FLO L 307.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 07/25/2009 ROEL RN EMERGENCY, GODWIN 307.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 07/25/2009 MADL RN EMERGENCY, FLO L 307.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 07/25/2009 ROEL RN EMERGENCY, GODWIN 307.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 07/25/2009 ROEL RN EMERGENCY, GODWIN 307.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 07/25/2009 MADL RN EMERGENCY, FLO L 307.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 07/25/2009 MADL RN EMERGENCY, FLO L 307.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 07/25/2009 ROEL RN EMERGENCY, GODWIN 307.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 07/25/2009 SONNYKENJI MENG, ELIAS A 307.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 07/25/2009 [facility], [place] R 307.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 07/25/2009 MADL RN EMERGENCY, FLO L 307.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 07/25/2009 JOSE SILVERIO DDS 307.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 07/25/2009 [facility], DEM[place] R 307.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 07/25/2009 [facility], [place] R 307.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 07/25/2009 ROEL RN EMERGENCY, GODWIN 307.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 07/25/2009 NICOLA MANUEL DO 307.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 07/25/2009 OREL RN EMERGENCY, GODWIN 307.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 07/25/2009 ROEL RN EMERGENCY, GODWIN 307.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 12/17/2009 WOLF JAMA MD 311 DEPRESSIVE DISORDER NOS 12/17/2009 WOLF JAMA MD 311 DEPRESSIVE DISORDER NOS 12/17/2009 311 DEPRESSIVE DISORDER NOS 12/17/2009 NICOLA MANUEL DO K 311 DEPRESSIVE DISORDER NOS 12/17/2009 KRYSJASON ZARAGOZA DO 311 DEPRESSIVE DISORDER NOS 12/17/2009 311 DEPRESSIVE DISORDER NOS 12/17/2009 311 DEPRESSIVE DISORDER NOS 12/17/2009 311 DEPRESSIVE DISORDER NOS 12/17/2009 311 DEPRESSIVE DISORDER NOS 12/17/2009 311 DEPRESSIVE DISORDER NOS 12/17/2009 311 DEPRESSIVE DISORDER NOS 12/17/2009 311 DEPRESSIVE DISORDER NOS 12/17/2009 311 DEPRESSIVE DISORDER NOS 12/17/2009 311 DEPRESSIVE DISORDER NOS 12/17/2009 311 DEPRESSIVE DISORDER NOS 12/17/2009 311 DEPRESSIVE DISORDER NOS 12/17/2009 NICOLA MANUEL DO K 311 DEPRESSIVE DISORDER NOS 12/17/2009 JASON HUNTER APRN 311 DEPRESSIVE DISORDER NOS 12/17/2009 WOLF JAMA MD 311 DEPRESSIVE DISORDER NOS 12/17/2009 NICOLA MANUEL DO 311 DEPRESSIVE DISORDER NOS 12/17/2009 KELY FRIEDMAN DDS 311 DEPRESSIVE DISORDER NOS 12/17/2009 JASON HUNTER APRN 311 DEPRESSIVE DISORDER NOS 12/17/2009 JASON HUNTER APRN 311 DEPRESSIVE DISORDER NOS 12/17/2009 JASON HUNTER APRN 311 DEPRESSIVE DISORDER NOS 12/17/2009 WOLF JAMA MD 311 DEPRESSIVE DISORDER NOS 12/17/2009 ROEL RN EMERGENCY, GODWIN 311 DEPRESSIVE DISORDER NOS 12/17/2009 MADL RN EMERGENCY, FLO L 311 DEPRESSIVE DISORDER NOS 12/17/2009 ROEL RN EMERGENCY, GODWIN 311 DEPRESSIVE DISORDER NOS 12/17/2009 MADL RN EMERGENCY, FLO L 311 DEPRESSIVE DISORDER NOS 12/17/2009 ROEL RN EMERGENCY, GODWIN 311 DEPRESSIVE DISORDER NOS 12/17/2009 ROEL RN EMERGENCY, GODWIN 311 DEPRESSIVE DISORDER NOS 12/17/2009 MADL RN EMERGENCY, FLO L 311 DEPRESSIVE DISORDER NOS 12/17/2009 MADL RN EMERGENCY, FLO L 311 DEPRESSIVE DISORDER NOS 12/17/2009 ROEL RN EMERGENCY, GODWIN 311 DEPRESSIVE DISORDER NOS 12/17/2009 ELIAS DENNIS APRN 311 DEPRESSIVE DISORDER NOS 12/17/2009 [facility], DEMOND R 311 DEPRESSIVE DISORDER NOS 12/17/2009 LISA RN EMERGENCYFLO 311 DEPRESSIVE DISORDER NOS 12/17/2009 JOSE SILVERIO DDS 311 DEPRESSIVE DISORDER NOS 12/17/2009 [facility], DEMOND R 311 DEPRESSIVE DISORDER NOS 12/17/2009 [facility], DEMOND R 311 DEPRESSIVE DISORDER NOS 12/17/2009 ROEL RN EMERGENCY, GODWIN 311 DEPRESSIVE DISORDER NOS 12/17/2009 NICOLA MANUEL DO 311 DEPRESSIVE DISORDER NOS 12/17/2009 ROEL RN EMERGENCY, GODWIN 311 DEPRESSIVE DISORDER NOS 12/17/2009 ROEL RN EMERGENCY, GODWIN 311 DEPRESSIVE DISORDER NOS 05/06/2010 Ot 620.2 05/06/2010 Ot 789.04 05/13/2010 WOLF JAMA MD V72.31 Cord Maker Exam, Routine 05/13/2010 WOLF JAMA MD V72.31 Cord Maker Exam, Routine 05/13/2010 V72.31 Cord Maker Exam, Routine 05/13/2010 NICOLA MANUEL DO V72.31 Cord Maker Exam, Routine 05/13/2010 JASON SOLANO DO V72.31 Cord Maker Exam, Routine 05/13/2010 V72.31 Cord Maker Exam, Routine 05/13/2010 V72.31 Cord Maker Exam, Routine 05/13/2010 V72.31 Cord Maker Exam, Routine 05/13/2010 V72.31 Cord Maker Exam, Routine 05/13/2010 V72.31 Cord Maker Exam, Routine 05/13/2010 V72.31 Cord Maker Exam, Routine 05/13/2010 V72.31 Cord Maker Exam, Routine 05/13/2010 V72.31 Cord Maker Exam, Routine 05/13/2010 V72.31 Cord Maker Exam, Routine 05/13/2010 V72.31 Cord Maker Exam, Routine 05/13/2010 V72.31 Cord Maker Exam, Routine 05/13/2010 NICOLA MANUEL DO V72.31 Cord Maker Exam, Routine 05/13/2010 JASON HUNTER APRN V72.31 Cord Maker Exam, Routine 05/13/2010 WOLF JAMA MD V72.31 Cord Maker Exam, Routine 05/13/2010 NICOLA MANUEL DO V72.31 Cord Maker Exam, Routine 05/13/2010 KELY FRIEDMAN DDS V72.31 Cord Maker Exam, Routine 05/13/2010 JASON HUNTER APRN V72.31 Cord Maker Exam, Routine 05/13/2010 JASON HUNTER APRN V72.31 Cord Maker Exam, Routine 05/13/2010 JASON HUNTER APRN V72.31 Cord Maker Exam, Routine 05/13/2010 WOLF JAMA MD V72.31 Cord Maker Exam, Routine 05/13/2010 ROEL RN EMERGENCY, GODWIN V72.31 Cord Maker Exam, Routine 05/13/2010 MADL RN EMERGENCY, FLO L V72.31 Cord Maker Exam, Routine 05/13/2010 ROEL RN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 With Low Grade Squamous Intraepithelial Lesion (lgsil) 01/25/2012 ROEL RN EMERGENCY, GODWIN 427.9 Arrhythmia, Cardiac (sinus) 01/25/2012 ROEL RN EMERGENCY, GODWIN 786.50 Unspecified Chest Pain 01/25/2012 ROEL RN EMERGENCY, GODWIN 795.03 Papanicolaou Smear Of Cervix With Low Grade Squamous Intraepithelial Lesion (lgsil) 01/25/2012 MADL RN EMERGENCY, FLO L 427.9 Arrhythmia, Cardiac (sinus) 01/25/2012 MADL RN EMERGENCY, FLO L 786.50 Unspecified Chest Pain 01/25/2012 MADL RN EMERGENCY, FLO L 795.03 Papanicolaou Smear Of Cervix With Low Grade Squamous Intraepithelial Lesion (lgsil) 01/25/2012 ROEL RN EMERGENCY, GODWIN 427.9 Arrhythmia, Cardiac (sinus) 01/25/2012 ROEL RN EMERGENCY, GODWIN 786.50 Unspecified Chest Pain 01/25/2012 ROEL RN EMERGENCY, GODWIN 795.03 Papanicolaou Smear Of Cervix With Low Grade Squamous Intraepithelial Lesion (lgsil) 01/25/2012 MADL RN EMERGENCY, FLO L 427.9 Arrhythmia, Cardiac (sinus) 01/25/2012 MADL RN EMERGENCY, FLO L 786.50 Unspecified Chest Pain 01/25/2012 MADL RN EMERGENCY, FLO L 795.03 Papanicolaou Smear Of Cervix With Low Grade Squamous Intraepithelial Lesion (lgsil) 01/25/2012 ROEL RN EMERGENCY, GODWIN 427.9 Arrhythmia, Cardiac (sinus) 01/25/2012 ROEL RN EMERGENCY, GODWIN 786.50 Unspecified Chest Pain 01/25/2012 ROEL RN EMERGENCY, GODWIN 795.03 Papanicolaou Smear Of Cervix With Low Grade Squamous Intraepithelial Lesion (lgsil) 01/25/2012 ROEL RN EMERGENCY, GODWIN 427.9 Arrhythmia, Cardiac (sinus) 01/25/2012 ROEL RN EMERGENCY, GODWIN 786.50 Unspecified Chest Pain 01/25/2012 ROEL RN EMERGENCY, GODWIN 795.03 Papanicolaou Smear Of Cervix With Low Grade Squamous Intraepithelial Lesion (lgsil) 01/25/2012 MADL RN EMERGENCY, FLO L 427.9 Arrhythmia, Cardiac (sinus) 01/25/2012 MADL RN EMERGENCY, FLO L 786.50 Unspecified Chest Pain 01/25/2012 MADL RN EMERGENCY, FLO L 795.03 Papanicolaou Smear Of Cervix With Low Grade Squamous Intraepithelial Lesion (lgsil) 01/25/2012 MADL RN EMERGENCY, FLO L 427.9 Arrhythmia, Cardiac (sinus) 01/25/2012 MADL RN EMERGENCY, FLO L 786.50 Unspecified Chest Pain 01/25/2012 MADL RN EMERGENCY, FLO L 795.03 Papanicolaou Smear Of Cervix With Low Grade Squamous Intraepithelial Lesion (lgsil) 01/25/2012 ROEL RN EMERGENCY, GODWIN 427.9 Arrhythmia, Cardiac (sinus) 01/25/2012 ROEL RN EMERGENCY, GODWIN 786.50 Unspecified Chest Pain 01/25/2012 ROEL RN EMERGENCY, GODWIN 795.03 Papanicolaou Smear Of Cervix With Low Grade Squamous Intraepithelial Lesion (lgsil) 01/25/2012 CARMINA DENNIS APRNIDI A 427.9 Arrhythmia, Cardiac (sinus) 01/25/2012 SONNY MENG ELIAS A 786.50 Unspecified Chest Pain 01/25/2012 SONNY MENG ELIAS A 795.03 Papanicolaou Smear Of Cervix With Low Grade Squamous Intraepithelial Lesion (lgsil) 01/25/2012 [facility], DEMOND R 427.9 Arrhythmia, Cardiac (sinus) [facility] 786.50 Unspecified [facility] 795.03 Papanicolaou Smear Of Cervix With Low Grade Squamous Intraepithelial Lesion (lgsil) 01/25/2012 MADL RN EMERGENCY, FLO L 427.9 Arrhythmia, Cardiac (sinus) 01/25/2012 MADL RN EMERGENCY, FLO L 786.50 Unspecified Chest Pain 01/25/2012 MADL RN EMERGENCY, FLO L 795.03 Papanicolaou Smear Of Cervix With Low Grade Squamous Intraepithelial Lesion (lgsil) 01/25/2012 NUSRAT DDS, JOSE 427.9 Arrhythmia, Cardiac (sinus) 01/25/2012 SILVERIO DDS, JOSE 786.50 Unspecified Chest Pain 01/25/2012 SILVERIO DDS, JOSE 795.03 Papanicolaou Smear Of Cervix With Low Grade Squamous Intraepithelial Lesion (lgsil) 01/25/2012 [facility], DEMOND R 427.9 Arrhythmia, Cardiac (sinus) 01/25/2012 [facility], DEMOND R 786.50 Unspecified Chest Pain 01/25/2012 [facility], DEMOND R 795.03 Papanicolaou Smear Of Cervix With Low Grade Squamous Intraepithelial Lesion (lgsil) 01/25/2012 [facility], DEMOND R 427.9 Arrhythmia, Cardiac (sinus) 01/25/2012 [facility], DEMOND R 786.50 Unspecified Chest Pain 01/25/2012 [facility], DEMOND R 795.03 Papanicolaou Smear Of Cervix With Low Grade Squamous Intraepithelial Lesion (lgsil) 01/25/2012 ROEL RN EMERGENCY, GODWIN 427.9 Arrhythmia, Cardiac (sinus) 01/25/2012 ROEL RN EMERGENCY, GODWIN 786.50 Unspecified Chest Pain 01/25/2012 ROEL RN EMERGENCY, GODWIN 795.03 Papanicolaou Smear Of Cervix With Low Grade Squamous Intraepithelial Lesion (lgsil) 01/25/2012 MARAL MANUEL DOA K 427.9 Arrhythmia, Cardiac (sinus) 01/25/2012 MAR BLANTON NICOLA K 786.50 Unspecified Chest Pain 01/25/2012 MARAL MANUEL DOA K 795.03 Papanicolaou Smear Of Cervix With Low Grade Squamous Intraepithelial Lesion (lgsil) 01/25/2012 ROEL RN EMERGENCY, GODWIN 427.9 Arrhythmia, Cardiac (sinus) 01/25/2012 ROEL RN EMERGENCY, GODWIN 786.50 Unspecified Chest Pain 01/25/2012 ROEL RN EMERGENCY, GODWIN 795.03 Papanicolaou Smear Of Cervix With Low Grade Squamous Intraepithelial Lesion (lgsil) 01/25/2012 ROEL RN EMERGENCY, GODWIN 427.9 Arrhythmia, Cardiac (sinus) 01/25/2012 ROEL RN EMERGENCY, GODWIN 786.50 Unspecified Chest Pain 01/25/2012 GODWIN SEVILLA APRN 795.03 Papanicolaou Smear Of Cervix With Low Grade Squamous Intraepithelial Lesion (lgsil) 06/25/2012 WOLF JAMA MD 724.5 Backache Unspecified 06/25/2012 WOLF JAMA MD 789.00 Abdominal Pain Unspecified Site 06/25/2012 WOLF JAMA MD 724.5 Backache Unspecified 06/25/2012 WOLF JAMA MD 789.00 Abdominal Pain Unspecified Site 06/25/2012 724.5 Backache Unspecified 06/25/2012 789.00 Abdominal Pain Unspecified Site 06/25/2012 NICOLA MANUEL DO 724.5 Backache Unspecified 06/25/2012 NICOLA MANUEL DO 789.00 Abdominal Pain Unspecified Site 06/25/2012 JASON SOLANO DO 724.5 Backache Unspecified 06/25/2012 JASON SOLANO DO 789.00 Abdominal Pain Unspecified Site 06/25/2012 724.5 Backache Unspecified 06/25/2012 789.00 Abdominal Pain Unspecified Site 06/25/2012 724.5 Backache Unspecified 06/25/2012 789.00 Abdominal Pain Unspecified Site 06/25/2012 724.5 Backache Unspecified 06/25/2012 789.00 Abdominal Pain Unspecified Site 06/25/2012 724.5 Backache Unspecified 06/25/2012 789.00 Abdominal Pain Unspecified Site 06/25/2012 724.5 Backache Unspecified 06/25/2012 789.00 Abdominal Pain Unspecified Site 06/25/2012 724.5 Backache Unspecified 06/25/2012 789.00 abdominal pain 06/25/2012 724.5 Backache Unspecified 06/25/2012 789.00 abdominal pain 06/25/2012 724.5 Backache Unspecified 06/25/2012 789.00 abdominal pain 06/25/2012 724.5 Backache Unspecified 06/25/2012 789.00 abdominal pain 06/25/2012 724.5 Backache Unspecified 06/25/2012 789.00 abdominal pain 06/25/2012 724.5 Backache Unspecified 06/25/2012 789.00 abdominal pain 06/25/2012 MANUEL DO, NICOLA K 724.5 Backache Unspecified 06/25/2012 MANUEL DO, NICOLA K 789.00 abdominal pain 06/25/2012 JASON HUNTER APRN 724.5 Backache Unspecified 06/25/2012 JASON HUNTER APRN 789.00 abdominal pain 06/25/2012 WOLF JAMA MD 724.5 Backache Unspecified 06/25/2012 WOLF JAMA MD 789.00 abdominal pain 06/25/2012 MANUEL DO, NICOLA K 724.5 Backache Unspecified 06/25/2012 MANUEL DO, NICOLA K 789.00 abdominal pain 06/25/2012 WHITE DDSJASMINON J 724.5 Backache Unspecified 06/25/2012 WHITE DDS, KELY J 789.00 abdominal pain 06/25/2012 JASON HUNTER APRN 724.5 Backache Unspecified 06/25/2012 JASON HUNTER APRN 789.00 abdominal pain 06/25/2012 JASON HUNTER APRN 724.5 Backache Unspecified 06/25/2012 JASON HUNTER APRN 789.00 abdominal pain 06/25/2012 JASON HUNTER APRN 724.5 Backache Unspecified 06/25/2012 JASON HUNTER APRN 789.00 abdominal pain 06/25/2012 WOLF JAMA MD 724.5 Backache Unspecified 06/25/2012 WOLF JAMA MD 789.00 abdominal pain 06/25/2012 GODWIN SEVILLA APRN 724.5 Backache Unspecified 06/25/2012 ROEL RN EMERGENCY, GODWIN 789.00 abdominal pain 06/25/2012 FLO GONZALEZ APRN L 724.5 Backache Unspecified 06/25/2012 LISA MENG FLO L 789.00 abdominal pain 06/25/2012 ROEL MEGN GODWIN 724.5 Backache Unspecified 06/25/2012 ROEL RN EMERGENCY, GODWIN 789.00 abdominal pain 06/25/2012 LISA MENG FLO L 724.5 Backache Unspecified 06/25/2012 MADL RN EMERGENCY, FLO L 789.00 abdominal pain 06/25/2012 ROEL RN EMERGENCY, GODWIN 724.5 Backache Unspecified 06/25/2012 ROEL RN EMERGENCY, GODWIN 789.00 abdominal pain 06/25/2012 ROEL RN EMERGENCY, GODWIN 724.5 Backache Unspecified 06/25/2012 ROEL RN EMERGENCY, GODWIN 789.00 abdominal pain 06/25/2012 MADL RN EMERGENCY, FLO L 724.5 Backache Unspecified 06/25/2012 MADL RN EMERGENCY, FLO L 789.00 abdominal pain 06/25/2012 MADL RN EMERGENCY, FLO L 724.5 Backache Unspecified 06/25/2012 MADL RN EMERGENCY, FLO L 789.00 abdominal pain 06/25/2012 ROEL RN EMERGENCY, GODWIN 724.5 Backache Unspecified 06/25/2012 ROEL RN EMERGENCY, GODWIN 789.00 abdominal pain 06/25/2012 SONNY RN EMERGENCY, ELIAS A 724.5 Backache Unspecified 06/25/2012 SONNY RN EMERGENCY, ELIAS A 789.00 abdominal pain 06/25/2012 [facility], DEMOND R 724.5 Backache Unspecified 06/25/2012 [facility], DEMOND R 789.00 abdominal pain 06/25/2012 MADL RN EMERGENCY, FLO L 724.5 Backache Unspecified 06/25/2012 MADL RN EMERGENCY, FLO L 789.00 abdominal pain 06/25/2012 SILVERIO DDS, JOSE 724.5 Backache Unspecified 06/25/2012 SILVERIO DDS, JOSE 789.00 abdominal pain 06/25/2012 [facility], DEMOND R 724.5 Backache Unspecified 06/25/2012 [facility], DEMOND R 789.00 abdominal pain 06/25/2012 [facility], DEMOND R 724.5 Backache Unspecified 06/25/2012 [facility], DEMOND R 789.00 abdominal pain 06/25/2012 ROEL RN EMERGENCY, GODWIN 724.5 Backache Unspecified 06/25/2012 ROEL RN EMERGENCY, GODWIN 789.00 abdominal pain 06/25/2012 MANUEL MARAL BLANTONA K 724.5 Backache Unspecified 06/25/2012 MANUEL DO, NICOLA K 789.00 abdominal pain 06/25/2012 ROEL RN EMERGENCY, GODWIN 724.5 Backache Unspecified 06/25/2012 ROEL RN EMERGENCY, GODWIN 789.00 abdominal pain 06/25/2012 ROEL RN EMERGENCY, GODWIN 724.5 Backache Unspecified 06/25/2012 ROEL RN EMERGENCY, GODWIN 789.00 abdominal pain 06/27/2012 WOLF JAMA MD 785.1 Palpitations 06/27/2012 EVITA JONES, WOLF 786.05 Shortness Of Breath 06/27/2012 WOLF JAMA MD 786.50 Chest Pain 06/27/2012 WOLF JAMA MD 785.1 Palpitations 06/27/2012 WOLF JAMA MD 786.05 Shortness Of Breath 06/27/2012 WOLF JAMA MD 786.50 Chest Pain 06/27/2012 785.1 Palpitations 06/27/2012 786.05 Shortness Of Breath 06/27/2012 786.50 Chest Pain 06/27/2012 MARAL MANUEL DOA K 785.1 Palpitations 06/27/2012 MANUEL MARAL BLANTONA K 786.05 Shortness Of Breath 06/27/2012 MANUEL MARAL BLANTONA K 786.50 Chest Pain 06/27/2012 JASON SOLANO DO F 785.1 Palpitations 06/27/2012 JASON SOLANO DO F 786.05 Shortness Of Breath 06/27/2012 RONALDO SOLANO DOEN F 786.50 Chest Pain 06/27/2012 785.1 Palpitations 06/27/2012 786.05 Shortness Of Breath 06/27/2012 786.50 Chest Pain 06/27/2012 785.1 Palpitations 06/27/2012 786.05 Shortness Of Breath 06/27/2012 786.50 Chest Pain 06/27/2012 785.1 Palpitations 06/27/2012 786.05 Shortness Of Breath 06/27/2012 786.50 Chest Pain 06/27/2012 785.1 Palpitations 06/27/2012 786.05 Shortness Of Breath 06/27/2012 786.50 Chest Pain 06/27/2012 785.1 Palpitations 06/27/2012 786.05 Shortness Of Breath 06/27/2012 786.50 Chest Pain 06/27/2012 785.1 Palpitations 06/27/2012 786.05 Shortness Of Breath 06/27/2012 786.50 Chest Pain 06/27/2012 785.1 Palpitations 06/27/2012 786.05 Shortness Of Breath 06/27/2012 786.50 Chest Pain 06/27/2012 785.1 Palpitations 06/27/2012 786.05 Shortness Of Breath 06/27/2012 786.50 Chest Pain 06/27/2012 785.1 Palpitations 06/27/2012 786.05 Shortness Of Breath 06/27/2012 786.50 Chest Pain 06/27/2012 785.1 Palpitations 06/27/2012 786.05 Shortness Of Breath 06/27/2012 786.50 Chest Pain 06/27/2012 785.1 Palpitations 06/27/2012 786.05 Shortness Of Breath 06/27/2012 786.50 Chest Pain 06/27/2012 MANUEL DO, NICOLA K 785.1 Palpitations 06/27/2012 MANUEL DO, NICOLA K 786.05 Shortness Of Breath 06/27/2012 MANUEL DO, NICOLA K 786.50 Chest Pain 06/27/2012 JASON HUNTER APRN 785.1 Palpitations 06/27/2012 JASON HUNTER APRN 786.05 Shortness Of Breath 06/27/2012 JASON HUNTER APRN 786.50 Chest Pain 06/27/2012 WOLF JAMA MD 785.1 Palpitations 06/27/2012 WOLF JAMA MD 786.05 Shortness Of Breath 06/27/2012 WOLF JAMA MD 786.50 Chest Pain 06/27/2012 MANUEL DO, NICOLA K 785.1 Palpitations 06/27/2012 MANUEL DO, NICOLA K 786.05 Shortness Of Breath 06/27/2012 MANUEL DO NICOLA K 786.50 Chest Pain 06/27/2012 WHITE DDKELY Shin 785.1 Palpitations 06/27/2012 WHITE DDSKELY J 786.05 Shortness Of Breath 06/27/2012 WHITE DDSKELY J 786.50 Chest Pain 06/27/2012 JASON HUNTER APRN 785.1 Palpitations 06/27/2012 DALE RN EMERGENCYJASON Kirkpatrick D 786.05 Shortness Of Breath 06/27/2012 DALE RN EMERGENCYJASON Kirkpatrick D 786.50 Chest Pain 06/27/2012 DALE RN EMERGENCYASHLEY KirkpatrickJASON D 785.1 Palpitations 06/27/2012 DALE RN EMERGENCYJASON Kirkpatrick D 786.05 Shortness Of Breath 06/27/2012 DALE RN EMERGENCYJASON Kirkpatrick D 786.50 Chest Pain 06/27/2012 DALE RN EMERGENCYASHLEY KirkpatrickJASON D 785.1 Palpitations 06/27/2012 DALE RN EMERGENCYJASON Kirkpatrick D 786.05 Shortness Of Breath 06/27/2012 BRIANJASON RENTERIA APRN D 786.50 Chest Pain 06/27/2012 WOLF JAMA MD 785.1 Palpitations 06/27/2012 WOLF JAMA MD 786.05 Shortness Of Breath 06/27/2012 WOLF JAMA MD 786.50 Chest Pain 06/27/2012 ROEL RN EMERGENCY, GODWIN 785.1 Palpitations 06/27/2012 ROEL RN EMERGENCY, GODWIN 786.05 Shortness Of Breath 06/27/2012 ROEL RN EMERGENCY, GODWIN 786.50 Chest Pain 06/27/2012 MADL RN EMERGENCY, FLO L 785.1 Palpitations 06/27/2012 MADL RN EMERGENCY, FLO L 786.05 Shortness Of Breath 06/27/2012 MADL RN EMERGENCY, FLO L 786.50 Chest Pain 06/27/2012 ROEL RN EMERGENCY, GODWIN 785.1 Palpitations 06/27/2012 ROEL RN EMERGENCY, GODWIN 786.05 Shortness Of Breath 06/27/2012 ROEL RN EMERGENCY, GODWIN 786.50 Chest Pain 06/27/2012 MADL RN EMERGENCY, FLO L 785.1 Palpitations 06/27/2012 MADL RN EMERGENCY, FLO L 786.05 Shortness Of Breath 06/27/2012 MADL RN EMERGENCY, FLO L 786.50 Chest Pain 06/27/2012 REOL RN EMERGENCY, GODWIN 785.1 Palpitations 06/27/2012 ROEL RN EMERGENCY, GODWIN 786.05 Shortness Of Breath 06/27/2012 ROEL RN EMERGENCY, GODWIN 786.50 Chest Pain 06/27/2012 ROEL RN EMERGENCY, GODWIN 785.1 Palpitations 06/27/2012 ROEL RN EMERGENCY, GODWIN 786.05 Shortness Of Breath 06/27/2012 ROEL RN EMERGENCY, GODWIN 786.50 Chest Pain 06/27/2012 MADL RN EMERGENCY, FLO L 785.1 Palpitations 06/27/2012 MADL RN EMERGENCY, FLO L 786.05 Shortness Of Breath 06/27/2012 MADL RN EMERGENCY, FLO L 786.50 Chest Pain 06/27/2012 MADL RN EMERGENCY, FLO L 785.1 Palpitations 06/27/2012 MADL RN EMERGENCY, FLO L 786.05 Shortness Of Breath 06/27/2012 MADL RN EMERGENCY, FLO L 786.50 Chest Pain 06/27/2012 ROEL RN EMERGENCY, GODWIN 785.1 Palpitations 06/27/2012 ROEL RN EMERGENCY, GODWIN 786.05 Shortness Of Breath 06/27/2012 ROEL RN EMERGENCY, GODWIN 786.50 Chest Pain 06/27/2012 SONNY RN EMERGENCY, ELIAS A 785.1 Palpitations 06/27/2012 SONNY RN EMERGENCY, ELIAS A 786.05 Shortness Of Breath 06/27/2012 SONNY RN EMERGENCY, ELIAS A 786.50 Chest Pain 06/27/2012 [facility], DEMOND R 785.1 Palpitations 06/27/2012 [facility], DEMOND R 786.05 Shortness Of Breath 06/27/2012 [facility], DEMOND R 786.50 Chest Pain 06/27/2012 MADL RN EMERGENCY, FLO L 785.1 Palpitations 06/27/2012 MADL RN EMERGENCY, FLO L 786.05 Shortness Of Breath 06/27/2012 MADL RN EMERGENCY, FLO L 786.50 Chest Pain 06/27/2012 SILVERIO DDS, JOSE 785.1 Palpitations 06/27/2012 SILVERIO DDS, JOSE 786.05 Shortness Of Breath 06/27/2012 SILVERIO DDS, JOSE 786.50 Chest Pain 06/27/2012 [facility], DEMOND R 785.1 Palpitations 06/27/2012 [facility], DEMOND R 786.05 Shortness Of Breath 06/27/2012 [facility], DEMOND R 786.50 Chest Pain 06/27/2012 [facility], DEMOND R 785.1 Palpitations 06/27/2012 [facility], DEMOND R 786.05 Shortness Of Breath 06/27/2012 [facility], DEMOND R 786.50 Chest Pain 06/27/2012 ROEL RN EMERGENCY, GODWIN 785.1 Palpitations 06/27/2012 ROEL RN EMERGENCY, GODWIN 786.05 Shortness Of Breath 06/27/2012 ROEL RN EMERGENCY, GODWIN 786.50 Chest Pain 06/27/2012 MANUEL DO, NICOLA K 785.1 Palpitations 06/27/2012 MANUEL DO, NICOLA K 786.05 Shortness Of Breath 06/27/2012 MANUEL DO, NICOLA K 786.50 Chest Pain 06/27/2012 ROEL RN EMERGENCY, GODWIN 785.1 Palpitations 06/27/2012 ROEL RN EMERGENCY, GODWIN 786.05 Shortness Of Breath 06/27/2012 ROEL RN EMERGENCY, GODWIN 786.50 Chest Pain 06/27/2012 ROEL RN EMERGENCY, GODWIN 785.1 Palpitations 06/27/2012 ROEL RN EMERGENCY, GODWIN 786.05 Shortness Of Breath 06/27/2012 ROEL RN EMERGENCY, GODWIN 786.50 Chest Pain 08/07/2012 WOLF JAMA MD 617.9 ENDOMETRIOSIS SITE UNSPECIFIED 08/07/2012 WOLF JAMA MD 625.9 Pelvic Pain 08/07/2012 WOLF JAMA MD V05.3 Hep B (adult) Dx 08/07/2012 WOLF JAMA MD V76.2 Cervical Cancer Screening (pap Smear) 08/07/2012 WOLF JAMA MD 617.9 ENDOMETRIOSIS SITE UNSPECIFIED 08/07/2012 WOLF JAMA MD 625.9 Pelvic Pain 08/07/2012 WOLF JAMA MD V05.3 Hep B (adult) Dx 08/07/2012 WOLF JAMA MD V76.2 Cervical Cancer Screening (pap Smear) 08/07/2012 617.9 ENDOMETRIOSIS SITE UNSPECIFIED 08/07/2012 625.9 Pelvic Pain 08/07/2012 V05.3 Hep B (adult) Dx 08/07/2012 V76.2 Cervical Cancer Screening (pap Smear) 08/07/2012 MAR BLANTON NICOLA K 617.9 ENDOMETRIOSIS SITE UNSPECIFIED 08/07/2012 MAR BLANTON NICOLA K 625.9 Pelvic Pain 08/07/2012 NICOLA MANUEL DO K V05.3 Hep B (adult) Dx 08/07/2012 NICOLA MANUEL DO K V76.2 Cervical Cancer Screening (pap Smear) 08/07/2012 JASON SOLANO DO F 617.9 ENDOMETRIOSIS SITE UNSPECIFIED 08/07/2012 JASON SOLANO DO F 625.9 Pelvic Pain 08/07/2012 JASON SOLANO DO F V05.3 Hep B (adult) Dx 08/07/2012 JASON SOLANO DO F V76.2 Cervical Cancer Screening (pap Smear) 08/07/2012 617.9 ENDOMETRIOSIS SITE UNSPECIFIED 08/07/2012 625.9 Pelvic Pain 08/07/2012 V05.3 Hep B (adult) Dx 08/07/2012 V76.2 Cervical Cancer Screening (pap Smear) 08/07/2012 617.9 ENDOMETRIOSIS SITE UNSPECIFIED 08/07/2012 625.9 Pelvic Pain 08/07/2012 V05.3 Hep B (adult) Dx 08/07/2012 V76.2 Cervical Cancer Screening (pap Smear) 08/07/2012 617.9 ENDOMETRIOSIS SITE UNSPECIFIED 08/07/2012 625.9 Pelvic Pain 08/07/2012 V05.3 Hep B (adult) Dx 08/07/2012 V76.2 Cervical Cancer Screening (pap Smear) 08/07/2012 617.9 ENDOMETRIOSIS SITE UNSPECIFIED 08/07/2012 625.9 Pelvic Pain 08/07/2012 V05.3 Hep B (adult) Dx 08/07/2012 V76.2 Cervical Cancer Screening (pap Smear) 08/07/2012 617.9 ENDOMETRIOSIS SITE UNSPECIFIED 08/07/2012 625.9 Pelvic Pain 08/07/2012 V05.3 Hep B (adult) Dx 08/07/2012 V76.2 Cervical Cancer Screening (pap Smear) 08/07/2012 617.9 ENDOMETRIOSIS SITE UNSPECIFIED 08/07/2012 625.9 Pelvic Pain 08/07/2012 V05.3 Hep B (adult) Dx 08/07/2012 V76.2 Cervical Cancer Screening (pap Smear) 08/07/2012 617.9 ENDOMETRIOSIS SITE UNSPECIFIED 08/07/2012 625.9 Pelvic Pain 08/07/2012 V05.3 Hep B (adult) Dx 08/07/2012 V76.2 Cervical Cancer Screening (pap Smear) 08/07/2012 617.9 ENDOMETRIOSIS SITE UNSPECIFIED 08/07/2012 625.9 Pelvic Pain 08/07/2012 V05.3 Hep B (adult) Dx 08/07/2012 V76.2 Cervical Cancer Screening (pap Smear) 08/07/2012 617.9 ENDOMETRIOSIS SITE UNSPECIFIED 08/07/2012 625.9 Pelvic Pain 08/07/2012 V05.3 Hep B (adult) Dx 08/07/2012 V76.2 Cervical Cancer Screening (pap Smear) 08/07/2012 617.9 ENDOMETRIOSIS SITE UNSPECIFIED 08/07/2012 625.9 Pelvic Pain 08/07/2012 V05.3 Hep B (adult) Dx 08/07/2012 V76.2 Cervical Cancer Screening (pap Smear) 08/07/2012 617.9 ENDOMETRIOSIS SITE UNSPECIFIED 08/07/2012 625.9 Pelvic Pain 08/07/2012 V05.3 Hep B (adult) Dx 08/07/2012 V76.2 Cervical Cancer Screening (pap Smear) 08/07/2012 NICOLA MANUEL DO 617.9 ENDOMETRIOSIS SITE UNSPECIFIED 08/07/2012 NICOLA MANUEL DO 625.9 Pelvic Pain 08/07/2012 NICOLA MANUEL DO V05.3 Hep B (adult) Dx 08/07/2012 NICOLA MANUEL DO K V76.2 Cervical Cancer Screening (pap Smear) 08/07/2012 JASON HUNTER APRN 617.9 ENDOMETRIOSIS SITE UNSPECIFIED 08/07/2012 JASON HUNTER APRN 625.9 Pelvic Pain 08/07/2012 JASON HUNTER APRN V05.3 Hep B (adult) Dx 08/07/2012 JASON HUNTER APRN V76.2 Cervical Cancer Screening (pap Smear) 08/07/2012 WOLF JAMA MD 617.9 ENDOMETRIOSIS SITE UNSPECIFIED 08/07/2012 WOLF JAMA MD 625.9 Pelvic Pain 08/07/2012 WOLF JAMA MD V05.3 Hep B (adult) Dx 08/07/2012 WOLF JAMA MD V76.2 Cervical Cancer Screening (pap Smear) 08/07/2012 MANUEL DO NICOLA K 617.9 ENDOMETRIOSIS SITE UNSPECIFIED 08/07/2012 MANUEL DO NICOLA K 625.9 Pelvic Pain 08/07/2012 MAR BLANTON NICOLA K V05.3 Hep B (adult) Dx 08/07/2012 MAR BLANTON NICOLA K V76.2 Cervical Cancer Screening (pap Smear) 08/07/2012 WHITE DDS, KELY J 617.9 ENDOMETRIOSIS SITE UNSPECIFIED 08/07/2012 WHITE DDS, KELY J 625.9 Pelvic Pain 08/07/2012 WHITE DDS, KELY J V05.3 Hep B (adult) Dx 08/07/2012 WHITE DDSKELY J V76.2 Cervical Cancer Screening (pap Smear) 08/07/2012 JASON HUNTER APRN 617.9 ENDOMETRIOSIS SITE UNSPECIFIED 08/07/2012 JASON HUNTER APRN 625.9 Pelvic Pain 08/07/2012 JASON HUNTER APRN V05.3 Hep B (adult) Dx 08/07/2012 JASON HUNTER APRN V76.2 Cervical Cancer Screening (pap Smear) 08/07/2012 JASON HUNTER APRN 617.9 ENDOMETRIOSIS SITE UNSPECIFIED 08/07/2012 JASON HUNTER APRN 625.9 Pelvic Pain 08/07/2012 JASON HUNTER APRN V05.3 Hep B (adult) Dx 08/07/2012 JASON HUNTER APRN V76.2 Cervical Cancer Screening (pap Smear) 08/07/2012 JASON HUNTER APRN 617.9 ENDOMETRIOSIS SITE UNSPECIFIED 08/07/2012 JASON HUNTER APRN D 625.9 Pelvic Pain 08/07/2012 JASON HUNTER APRN D V05.3 Hep B (adult) Dx 08/07/2012 JASON HUNTER APRN V76.2 Cervical Cancer Screening (pap Smear) 08/07/2012 WOLF JAMA MD 617.9 ENDOMETRIOSIS SITE UNSPECIFIED 08/07/2012 WOLF JAMA MD 625.9 Pelvic Pain 08/07/2012 WOLF JAMA MD V05.3 Hep B (adult) Dx 08/07/2012 WOLF JAMA MD V76.2 Cervical Cancer Screening (pap Smear) 08/07/2012 ROEL RN EMERGENCY, GODWIN 617.9 ENDOMETRIOSIS SITE UNSPECIFIED 08/07/2012 ROEL RN EMERGENCY, GODWIN 625.9 Pelvic Pain 08/07/2012 ROEL RN EMERGENCY, GODWIN V05.3 Hep B (adult) Dx 08/07/2012 ROEL RN EMERGENCY, GODWIN V76.2 Cervical Cancer Screening (pap Smear) 08/07/2012 MADL RN EMERGENCY, FLO L 617.9 ENDOMETRIOSIS SITE UNSPECIFIED 08/07/2012 MADL RN EMERGENCY, FLO L 625.9 Pelvic Pain 08/07/2012 MADL RN EMERGENCY, FLO L V05.3 Hep B (adult) Dx 08/07/2012 MADL RN EMERGENCY, FLO L V76.2 Cervical Cancer Screening (pap Smear) 08/07/2012 ROEL RN EMERGENCY, GODWIN 617.9 ENDOMETRIOSIS SITE UNSPECIFIED 08/07/2012 ROEL RN EMERGENCY, GODWIN 625.9 Pelvic Pain 08/07/2012 ROEL RN EMERGENCY, GODWIN V05.3 Hep B (adult) Dx 08/07/2012 ROEL RN EMERGENCY, GODWIN V76.2 Cervical Cancer Screening (pap Smear) 08/07/2012 MADL RN EMERGENCY, FLO L 617.9 ENDOMETRIOSIS SITE UNSPECIFIED 08/07/2012 MADL RN EMERGENCY, FLO L 625.9 Pelvic Pain 08/07/2012 MADL RN EMERGENCY, FLO L V05.3 Hep B (adult) Dx 08/07/2012 MADL RN EMERGENCY, FLO L V76.2 Cervical Cancer Screening (pap Smear) 08/07/2012 ROEL RN EMERGENCY, GODWIN 617.9 ENDOMETRIOSIS SITE UNSPECIFIED 08/07/2012 ROEL RN EMERGENCY, GODWIN 625.9 Pelvic Pain 08/07/2012 ROEL RN EMERGENCY, GODWIN V05.3 Hep B (adult) Dx 08/07/2012 ROEL RN EMERGENCY, GODWIN V76.2 Cervical Cancer Screening (pap Smear) 08/07/2012 ROEL RN EMERGENCY, GODWIN 617.9 ENDOMETRIOSIS SITE UNSPECIFIED 08/07/2012 ROEL RN EMERGENCY, GODWIN 625.9 Pelvic Pain 08/07/2012 ROEL RN EMERGENCY, GODWIN V05.3 Hep B (adult) Dx 08/07/2012 ROEL RN EMERGENCY, GODWIN V76.2 Cervical Cancer Screening (pap Smear) 08/07/2012 MADL RN EMERGENCY, FLO L 617.9 ENDOMETRIOSIS SITE UNSPECIFIED 08/07/2012 MADL RN EMERGENCY, FLO L 625.9 Pelvic Pain 08/07/2012 MADL RN EMERGENCY, FLO L V05.3 Hep B (adult) Dx 08/07/2012 MADL RN EMERGENCY, FLO L V76.2 Cervical Cancer Screening (pap Smear) 08/07/2012 MADL RN EMERGENCY, FLO L 617.9 ENDOMETRIOSIS SITE UNSPECIFIED 08/07/2012 MADL RN EMERGENCY, FLO L 625.9 Pelvic Pain 08/07/2012 MADL RN EMERGENCY, FLO L V05.3 Hep B (adult) Dx 08/07/2012 MADL RN EMERGENCY, FLO L V76.2 Cervical Cancer Screening (pap Smear) 08/07/2012 ROEL RN EMERGENCY, GODWIN 617.9 ENDOMETRIOSIS SITE UNSPECIFIED 08/07/2012 ROEL RN EMERGENCY, GODWIN 625.9 Pelvic Pain 08/07/2012 ROEL RN EMERGENCY, GODWIN V05.3 Hep B (adult) Dx 08/07/2012 ROEL RN EMERGENCY, GODWIN V76.2 Cervical Cancer Screening (pap Smear) 08/07/2012 SONNY RN EMERGENCY, ELIAS A 617.9 ENDOMETRIOSIS SITE UNSPECIFIED 08/07/2012 SONNY RN EMERGENCY, ELIAS A 625.9 Pelvic Pain 08/07/2012 SONNY RN EMERGENCY, ELIAS A V05.3 Hep B (adult) Dx 08/07/2012 SONNY RN EMERGENCY, ELIAS A V76.2 Cervical Cancer Screening (pap Smear) 08/07/2012 [facility], DEMOND R 617.9 ENDOMETRIOSIS SITE UNSPECIFIED 08/07/2012 [facility], DEMOND R 625.9 Pelvic Pain 08/07/2012 [facility], DEMOND R V05.3 Hep B (adult) Dx 08/07/2012 [facility], DEMOND R V76.2 Cervical Cancer Screening (pap Smear) 08/07/2012 MADL RN EMERGENCY, FLO L 617.9 ENDOMETRIOSIS SITE UNSPECIFIED 08/07/2012 MADL RN EMERGENCY, FLO L 625.9 Pelvic Pain 08/07/2012 MADL RN EMERGENCY, FLO L V05.3 Hep B (adult) Dx 08/07/2012 MADL RN EMERGENCY, FLO L V76.2 Cervical Cancer Screening (pap Smear) 08/07/2012 NUSRAT DDS, JOSE 617.9 ENDOMETRIOSIS SITE UNSPECIFIED 08/07/2012 SILVERIO DDS, JOSE 625.9 Pelvic Pain 08/07/2012 SILVERIO DDS, JOSE V05.3 Hep B (adult) Dx 08/07/2012 SILVERIO DDS, OJSE V76.2 Cervical Cancer Screening (pap Smear) [facility]07[facility]2012 [facility] 617.9 ENDOMETRIOSIS SITE UNSPECIFIED 08/07/2012 [facility], DEMOND R 625.9 Pelvic Pain 08/07/2012 [facility] R V05.3 Hep B (adult) Dx 08/07/2012 [facility] R V76.2 Cervical Cancer Screening (pap Smear) 08/07/2012 [facility], DEMOND R 617.9 ENDOMETRIOSIS SITE UNSPECIFIED 08/07/2012 [facility], DEMOND R 625.9 Pelvic Pain [facility]/07/2012 [facility] V05.3 Hep B (adult) Dx 08/07/2012 [facility] R V76.2 Cervical Cancer Screening (pap Smear) 08/07/2012 ROEL RN EMERGENCY, GODWIN 617.9 ENDOMETRIOSIS SITE UNSPECIFIED 08/07/2012 ROEL RN EMERGENCY, GODWIN 625.9 Pelvic Pain 08/07/2012 ROEL RN EMERGENCY, GODWIN V05.3 Hep B (adult) Dx 08/07/2012 ROEL RN EMERGENCY, GODWIN V76.2 Cervical Cancer Screening (pap Smear) 08/07/2012 MANUEL DOMARALA K 617.9 ENDOMETRIOSIS SITE UNSPECIFIED 08/07/2012 MANUEL DOMARALA K 625.9 Pelvic Pain 08/07/2012 MANUEL DOMARALA K V05.3 Hep B (adult) Dx 08/07/2012 MANUEL DOMARALA K V76.2 Cervical Cancer Screening (pap Smear) 08/07/2012 ROEL RN EMERGENCY, GODWIN 617.9 ENDOMETRIOSIS SITE UNSPECIFIED 08/07/2012 ROEL RN EMERGENCY, GODWIN 625.9 Pelvic Pain 08/07/2012 ROEL RN EMERGENCY, GODWIN V05.3 Hep B (adult) Dx 08/07/2012 ROEL RN EMERGENCY, GODWIN V76.2 Cervical Cancer Screening (pap Smear) 08/07/2012 ROEL RN EMERGENCY, GODWIN 617.9 ENDOMETRIOSIS SITE UNSPECIFIED 08/07/2012 ROEL RN EMERGENCY, GODIWN 625.9 Pelvic Pain 08/07/2012 ROEL RN EMERGENCY, GODWIN V05.3 Hep B (adult) Dx 08/07/2012 ROEL RN EMERGENCY, GODWIN V76.2 Cervical Cancer Screening (pap Smear) 09/28/2012 WOLF JAMA MD 558.9 OTHER AND UNSPECIFIED NONINFECTIOUS GASTROENTERITIS AND COLITIS 09/28/2012 WOLF JAMA MD 558.9 OTHER AND UNSPECIFIED NONINFECTIOUS GASTROENTERITIS AND COLITIS 09/28/2012 558.9 OTHER AND UNSPECIFIED NONINFECTIOUS GASTROENTERITIS AND COLITIS 09/28/2012 NICOLA MANUEL DO 558.9 OTHER AND UNSPECIFIED NONINFECTIOUS GASTROENTERITIS AND COLITIS 09/28/2012 JASON SOLANO DO 558.9 OTHER AND UNSPECIFIED NONINFECTIOUS GASTROENTERITIS AND COLITIS 09/28/2012 558.9 OTHER AND UNSPECIFIED NONINFECTIOUS GASTROENTERITIS AND COLITIS 09/28/2012 558.9 OTHER AND UNSPECIFIED NONINFECTIOUS GASTROENTERITIS AND COLITIS 09/28/2012 558.9 OTHER AND UNSPECIFIED NONINFECTIOUS GASTROENTERITIS AND COLITIS 09/28/2012 558.9 OTHER AND UNSPECIFIED NONINFECTIOUS GASTROENTERITIS AND COLITIS 09/28/2012 558.9 OTHER AND UNSPECIFIED NONINFECTIOUS GASTROENTERITIS AND COLITIS 09/28/2012 558.9 OTHER AND UNSPECIFIED NONINFECTIOUS GASTROENTERITIS AND COLITIS 09/28/2012 558.9 OTHER AND UNSPECIFIED NONINFECTIOUS GASTROENTERITIS AND COLITIS 09/28/2012 558.9 OTHER AND UNSPECIFIED NONINFECTIOUS GASTROENTERITIS AND COLITIS 09/28/2012 558.9 OTHER AND UNSPECIFIED NONINFECTIOUS GASTROENTERITIS AND COLITIS 09/28/2012 558.9 OTHER AND UNSPECIFIED NONINFECTIOUS GASTROENTERITIS AND COLITIS 09/28/2012 558.9 OTHER AND UNSPECIFIED NONINFECTIOUS GASTROENTERITIS AND COLITIS 09/28/2012 NICOLA MANUEL DO 558.9 OTHER AND UNSPECIFIED NONINFECTIOUS GASTROENTERITIS AND COLITIS 09/28/2012 JASON HUNTER APRN D 558.9 OTHER AND UNSPECIFIED NONINFECTIOUS GASTROENTERITIS AND COLITIS 09/28/2012 WOLF JAMA MD 558.9 OTHER AND UNSPECIFIED NONINFECTIOUS GASTROENTERITIS AND COLITIS 09/28/2012 NICOLA MANUEL DO 558.9 OTHER AND UNSPECIFIED NONINFECTIOUS GASTROENTERITIS AND COLITIS 09/28/2012 IDALIA DDS, KELY Dickens 558.9 OTHER AND UNSPECIFIED NONINFECTIOUS GASTROENTERITIS AND COLITIS 09/28/2012 JASON HUNTER APRN D 558.9 OTHER AND UNSPECIFIED NONINFECTIOUS GASTROENTERITIS AND COLITIS 09/28/2012 JASON HUNTER APRN D 558.9 OTHER AND UNSPECIFIED NONINFECTIOUS GASTROENTERITIS AND COLITIS 09/28/2012 JASON HUNTER APRN D 558.9 OTHER AND UNSPECIFIED NONINFECTIOUS GASTROENTERITIS AND COLITIS 09/28/2012 WOLF JAMA MD 558.9 OTHER AND UNSPECIFIED NONINFECTIOUS GASTROENTERITIS AND COLITIS 09/28/2012 ROEL RN EMERGENCY, GODWIN 558.9 OTHER AND UNSPECIFIED NONINFECTIOUS GASTROENTERITIS AND COLITIS 09/28/2012 MADL RN EMERGENCY, FLO L 558.9 OTHER AND UNSPECIFIED NONINFECTIOUS GASTROENTERITIS AND COLITIS 09/28/2012 ROEL RN EMERGENCY, GODWIN 558.9 OTHER AND UNSPECIFIED NONINFECTIOUS GASTROENTERITIS AND COLITIS 09/28/2012 MADL RN EMERGENCY, FLO L 558.9 OTHER AND UNSPECIFIED NONINFECTIOUS GASTROENTERITIS AND COLITIS 09/28/2012 ROEL RN EMERGENCY, GODWIN 558.9 OTHER AND UNSPECIFIED NONINFECTIOUS GASTROENTERITIS AND COLITIS 09/28/2012 ROEL RN EMERGENCY, GODWIN 558.9 OTHER AND UNSPECIFIED NONINFECTIOUS GASTROENTERITIS AND COLITIS 09/28/2012 MADL RN EMERGENCY, FLO L 558.9 OTHER AND UNSPECIFIED NONINFECTIOUS GASTROENTERITIS AND COLITIS 09/28/2012 MADL RN EMERGENCY, FLO L 558.9 OTHER AND UNSPECIFIED NONINFECTIOUS GASTROENTERITIS AND COLITIS 09/28/2012 ROEL RN EMERGENCY, GODWIN 558.9 OTHER AND UNSPECIFIED NONINFECTIOUS GASTROENTERITIS AND COLITIS 09/28/2012 SONNY RN EMERGENCY, ELIAS A 558.9 OTHER AND UNSPECIFIED NONINFECTIOUS GASTROENTERITIS AND COLITIS 09/28/2012 [facility], DEMOND R 558.9 OTHER AND UNSPECIFIED NONINFECTIOUS GASTROENTERITIS AND COLITIS 09/28/2012 FLO GONZALEZ APRN 558.9 OTHER AND UNSPECIFIED NONINFECTIOUS GASTROENTERITIS AND COLITIS 09/28/2012 JOSE SILVERIO DDS 558.9 OTHER AND UNSPECIFIED NONINFECTIOUS GASTROENTERITIS AND COLITIS 09/28/2012 [facility], DEMOND R 558.9 OTHER AND UNSPECIFIED NONINFECTIOUS GASTROENTERITIS AND COLITIS 09/28/2012 [facility], DEMOND R 558.9 OTHER AND UNSPECIFIED NONINFECTIOUS GASTROENTERITIS AND COLITIS 09/28/2012 ROEL RN EMERGENCY, GODWIN 558.9 OTHER AND UNSPECIFIED NONINFECTIOUS GASTROENTERITIS AND COLITIS 09/28/2012 NICOLA MANUEL DO 558.9 OTHER AND UNSPECIFIED NONINFECTIOUS GASTROENTERITIS AND COLITIS 09/28/2012 ROEL RN EMERGENCY, GODWIN 558.9 OTHER AND UNSPECIFIED NONINFECTIOUS GASTROENTERITIS AND COLITIS 09/28/2012 ROEL RN EMERGENCY, GODWIN 558.9 OTHER AND UNSPECIFIED NONINFECTIOUS GASTROENTERITIS AND COLITIS 11/29/2012 626.0 AMENORRHEA 11/29/2012 NICOLA MANUEL DO 626.0 AMENORRHEA 11/29/2012 JASON SOLANO DO 626.0 AMENORRHEA 11/29/2012 626.0 AMENORRHEA 11/29/2012 626.0 AMENORRHEA 11/29/2012 626.0 AMENORRHEA 11/29/2012 626.0 AMENORRHEA 11/29/2012 626.0 AMENORRHEA 11/29/2012 626.0 AMENORRHEA 11/29/2012 626.0 AMENORRHEA 11/29/2012 626.0 AMENORRHEA 11/29/2012 626.0 AMENORRHEA 11/29/2012 626.0 AMENORRHEA 11/29/2012 626.0 AMENORRHEA 11/29/2012 NICOLA MANUEL DO 626.0 AMENORRHEA 11/29/2012 JASON HUNTER APRN 626.0 AMENORRHEA 11/29/2012 WOLF JAMA MD 626.0 AMENORRHEA 11/29/2012 NICOLA MANUEL DO 626.0 AMENORRHEA 11/29/2012 KELY FRIEDMAN DDS 626.0 AMENORRHEA 11/29/2012 GARTON RN EMERGENCYJASON 626.0 AMENORRHEA 11/29/2012 BRIANTON RN EMERGENCYJASON Kirkpatrick 626.0 AMENORRHEA 11/29/2012 GARTON RN EMERGENCY, JASON D 626.0 AMENORRHEA 11/29/2012 WOLF JAMA MD 626.0 AMENORRHEA 11/29/2012 ROEL RN EMERGENCY, GODWIN 626.0 AMENORRHEA 11/29/2012 MADL RN EMERGENCY, FLO L 626.0 AMENORRHEA 11/29/2012 ROEL RN EMERGENCY, GODWIN 626.0 AMENORRHEA 11/29/2012 MADL RN EMERGENCY, FLO L 626.0 AMENORRHEA 11/29/2012 ROEL RN EMERGENCY, GODWIN 626.0 AMENORRHEA 11/29/2012 ROEL RN EMERGENCY, GODWIN 626.0 AMENORRHEA 11/29/2012 MADL RN EMERGENCY, FLO L 626.0 AMENORRHEA 11/29/2012 MADL RN EMERGENCY, FLO L 626.0 AMENORRHEA 11/29/2012 ROEL RN EMERGENCY, GODWIN 626.0 AMENORRHEA 11/29/2012 SONNY RN EMERGENCY, ELIAS A 626.0 AMENORRHEA 11/29/2012 [facility], DEMOND R 626.0 AMENORRHEA 11/29/2012 MADL RN EMERGENCY, FLO L 626.0 AMENORRHEA 11/29/2012 NUSRAT JENKINSS, JOSE 626.0 AMENORRHEA 11/29/2012 [facility], DEMOND R 626.0 AMENORRHEA 11/29/2012 [facility], DEMOND R 626.0 AMENORRHEA 11/29/2012 ROEL RN EMERGENCY, GODWIN 626.0 AMENORRHEA 11/29/2012 NICOLA MANUEL DO K 626.0 AMENORRHEA 11/29/2012 ROEL RN EMERGENCY, GODWIN 626.0 AMENORRHEA 11/29/2012 ROEL RN EMERGENCY, GODWIN 626.0 AMENORRHEA 12/08/2012 Ot 723.1 CERVICALGIA 12/08/2012 Ot 723.4 BRACHIAL NEURITIS NOS 12/11/2012 Ot 723.1 CERVICALGIA 12/11/2012 Ot 724.1 PAIN IN THORACIC SPINE 01/16/2013 NICOLA MANUEL DO K 305.1 TOBACCO ABUSE 01/16/2013 NICOLA MANUEL DO K 626.1 OLIGOMENORRHEA 01/16/2013 MARAL MANUEL DOA K V73.81 HPV SCREENING 01/16/2013 NICOLA MANUEL DO K V74.5 STD SCREEN 01/16/2013 NICOLA MANUEL DO K V76.2 CERVICAL CANCER SCREENING (PAP SMEAR) 01/16/2013 JASON SOLANO DO F 305.1 TOBACCO ABUSE 01/16/2013 JASON SOLANO DO F 626.1 OLIGOMENORRHEA 01/16/2013 JASON SOLANO DO F V73.81 HPV SCREENING 01/16/2013 JASON SOLANO DO F V74.5 STD SCREEN 01/16/2013 XIOMARA BLANTON JASON F V76.2 CERVICAL CANCER SCREENING (PAP SMEAR) 01/16/2013 305.1 TOBACCO ABUSE 01/16/2013 626.1 OLIGOMENORRHEA 01/16/2013 V73.81 HPV SCREENING 01/16/2013 V74.5 STD SCREEN 01/16/2013 V76.2 CERVICAL CANCER SCREENING (PAP SMEAR) 01/16/2013 305.1 TOBACCO ABUSE 01/16/2013 626.1 OLIGOMENORRHEA 01/16/2013 V73.81 HPV SCREENING 01/16/2013 V74.5 STD SCREEN 01/16/2013 V76.2 CERVICAL CANCER SCREENING (PAP SMEAR) 01/16/2013 305.1 TOBACCO ABUSE 01/16/2013 626.1 OLIGOMENORRHEA 01/16/2013 V73.81 HPV SCREENING 01/16/2013 V74.5 STD SCREEN 01/16/2013 V76.2 CERVICAL CANCER SCREENING (PAP SMEAR) 01/16/2013 305.1 TOBACCO ABUSE 01/16/2013 626.1 OLIGOMENORRHEA 01/16/2013 V73.81 HPV SCREENING 01/16/2013 V74.5 STD SCREEN 01/16/2013 V76.2 CERVICAL CANCER SCREENING (PAP SMEAR) 01/16/2013 305.1 TOBACCO ABUSE 01/16/2013 626.1 OLIGOMENORRHEA 01/16/2013 V73.81 HPV SCREENING 01/16/2013 V74.5 STD SCREEN 01/16/2013 V76.2 CERVICAL CANCER SCREENING (PAP SMEAR) 01/16/2013 305.1 TOBACCO ABUSE 01/16/2013 626.1 OLIGOMENORRHEA 01/16/2013 V73.81 HPV SCREENING 01/16/2013 V74.5 STD SCREEN 01/16/2013 V76.2 CERVICAL CANCER SCREENING (PAP SMEAR) 01/16/2013 305.1 TOBACCO ABUSE 01/16/2013 626.1 OLIGOMENORRHEA 01/16/2013 V73.81 HPV SCREENING 01/16/2013 V74.5 STD SCREEN 01/16/2013 V76.2 CERVICAL CANCER SCREENING (PAP SMEAR) 01/16/2013 305.1 TOBACCO ABUSE 01/16/2013 626.1 OLIGOMENORRHEA 01/16/2013 V73.81 HPV SCREENING 01/16/2013 V74.5 STD SCREEN 01/16/2013 V76.2 CERVICAL CANCER SCREENING (PAP SMEAR) 01/16/2013 305.1 TOBACCO ABUSE 01/16/2013 626.1 OLIGOMENORRHEA 01/16/2013 V73.81 HPV SCREENING 01/16/2013 V74.5 STD SCREEN 01/16/2013 V76.2 CERVICAL CANCER SCREENING (PAP SMEAR) 01/16/2013 305.1 TOBACCO ABUSE 01/16/2013 626.1 OLIGOMENORRHEA 01/16/2013 V73.81 HPV SCREENING 01/16/2013 V74.5 STD SCREEN 01/16/2013 V76.2 CERVICAL CANCER SCREENING (PAP SMEAR) 01/16/2013 305.1 TOBACCO ABUSE 01/16/2013 626.1 OLIGOMENORRHEA 01/16/2013 V73.81 HPV SCREENING 01/16/2013 V74.5 STD SCREEN 01/16/2013 V76.2 CERVICAL CANCER SCREENING (PAP SMEAR) 01/16/2013 INCOLA MANUEL DO 305.1 TOBACCO ABUSE 01/16/2013 NICOLA MANUEL DO 626.1 OLIGOMENORRHEA 01/16/2013 NICOLA MANUEL DO V73.81 HPV SCREENING 01/16/2013 NICOLA MANUEL DO V74.5 STD SCREEN 01/16/2013 NICOAL MANUEL DO V76.2 CERVICAL CANCER SCREENING (PAP SMEAR) 01/16/2013 JASON HUNTER APRN 305.1 TOBACCO ABUSE 01/16/2013 JASON HUNTER APRN 626.1 OLIGOMENORRHEA 01/16/2013 JASON HUNTER APRN V73.81 HPV SCREENING 01/16/2013 JASON HUNTER APRN V74.5 STD SCREEN 01/16/2013 JASON HUNTER APRN V76.2 CERVICAL CANCER SCREENING (PAP SMEAR) 01/16/2013 WOLF JAMA MD 305.1 TOBACCO ABUSE 01/16/2013 WOLF JAMA MD 626.1 OLIGOMENORRHEA 01/16/2013 WOLF JAMA MD V73.81 HPV SCREENING 01/16/2013 WOLF JAMA MD V74.5 STD SCREEN 01/16/2013 WOLF JAMA MD V76.2 CERVICAL CANCER SCREENING (PAP SMEAR) 01/16/2013 MANUEL MARAL BLANTONA K 305.1 TOBACCO ABUSE 01/16/2013 MANUEL DO NICOLA K 626.1 OLIGOMENORRHEA 01/16/2013 MARAL MANUEL DOA K V73.81 HPV SCREENING 01/16/2013 MANUEL MARAL BLANTONA K V74.5 STD SCREEN 01/16/2013 MARAL MANUEL DOA K V76.2 CERVICAL CANCER SCREENING (PAP SMEAR) 01/16/2013 IDALIA JENKINSSKELY 305.1 TOBACCO ABUSE 01/16/2013 IDALIA JENKINSSKELY 626.1 OLIGOMENORRHEA 01/16/2013 IDALIA JENKINSSKELY V73.81 HPV SCREENING 01/16/2013 IDALIA JENKINSSJASMINON J V74.5 STD SCREEN 01/16/2013 IDALIA JENKINSSJASMINON J V76.2 CERVICAL CANCER SCREENING (PAP SMEAR) 01/16/2013 JASON HUNTER APRN 305.1 TOBACCO ABUSE 01/16/2013 JASON HUNTER APRN 626.1 OLIGOMENORRHEA 01/16/2013 JASON HUNTER APRN V73.81 HPV SCREENING 01/16/2013 JASON HUNTER APRN V74.5 STD SCREEN 01/16/2013 JASON HUNTER APRN V76.2 CERVICAL CANCER SCREENING (PAP SMEAR) 01/16/2013 JASON HUNTER APRN 305.1 TOBACCO ABUSE 01/16/2013 JASON HUNTER APRN 626.1 OLIGOMENORRHEA 01/16/2013 JASON HUNTER APRN V73.81 HPV SCREENING 01/16/2013 JASON HUNTER APRN V74.5 STD SCREEN 01/16/2013 JASON HUNTER APRN V76.2 CERVICAL CANCER SCREENING (PAP SMEAR) 01/16/2013 JASON HUNTER APRN 305.1 TOBACCO ABUSE 01/16/2013 JASON HUNTER APRN 626.1 OLIGOMENORRHEA 01/16/2013 JASON HUNTER APRN V73.81 HPV SCREENING 01/16/2013 JASON HUNTER APRN V74.5 STD SCREEN 01/16/2013 JASON HUNTER APRN V76.2 CERVICAL CANCER SCREENING (PAP SMEAR) 01/16/2013 WOLF JAMA MD 305.1 TOBACCO ABUSE 01/16/2013 WOLF JAMA MD 626.1 OLIGOMENORRHEA 01/16/2013 WOLF JAMA MD V73.81 HPV SCREENING 01/16/2013 WOLF JAMA MD V74.5 STD SCREEN 01/16/2013 WOLF JAMA MD V76.2 CERVICAL CANCER SCREENING (PAP SMEAR) 01/16/2013 GODWIN SEVILLA APRN 305.1 TOBACCO ABUSE 01/16/2013 ROEL MENG GODWIN 626.1 OLIGOMENORRHEA 01/16/2013 ROEL MENG GODWIN V73.81 HPV SCREENING 01/16/2013 ROEL MENG GODWIN V74.5 STD SCREEN 01/16/2013 GODWIN SEVILLA APRN V76.2 CERVICAL CANCER SCREENING (PAP SMEAR) 01/16/2013 FLO GONZALEZ APRN 305.1 TOBACCO ABUSE 01/16/2013 LISA MENG FLO L 626.1 OLIGOMENORRHEA 01/16/2013 LISA MENG, FLO L V73.81 HPV SCREENING 01/16/2013 EARNESTINE GONZALEZ APRNNYA L V74.5 STD SCREEN 01/16/2013 LISA MENG FLO L V76.2 CERVICAL CANCER SCREENING (PAP SMEAR) 01/16/2013 ROEL MENG GODWIN 305.1 TOBACCO ABUSE 01/16/2013 ROEL MENG GODWIN 626.1 OLIGOMENORRHEA 01/16/2013 ROEL MENG GODWIN V73.81 HPV SCREENING 01/16/2013 ROEL RN EMERGENCY, GODWIN V74.5 STD SCREEN 01/16/2013 ROEL RN EMERGENCY, GODWIN V76.2 CERVICAL CANCER SCREENING (PAP SMEAR) 01/16/2013 MAD RN EMERGENCY, FLO L 305.1 TOBACCO ABUSE 01/16/2013 MADL RN EMERGENCY, FLO L 626.1 OLIGOMENORRHEA 01/16/2013 MADL RN EMERGENCY, FLO L V73.81 HPV SCREENING 01/16/2013 MAD RN EMERGENCY, FLO L V74.5 STD SCREEN 01/16/2013 [facility] RN EMERGENCY, FLO L V76.2 CERVICAL CANCER SCREENING (PAP SMEAR) 01/16/2013 ROEL RN EMERGENCY, GODWIN 305.1 TOBACCO ABUSE 01/16/2013 ROEL RN EMERGENCY, GODWIN 626.1 OLIGOMENORRHEA 01/16/2013 ROEL RN EMERGENCY, GODWIN V73.81 HPV SCREENING 01/16/2013 ROEL RN EMERGENCY, GODWIN V74.5 STD SCREEN 01/16/2013 ROEL RN EMERGENCY, GODWIN V76.2 CERVICAL CANCER SCREENING (PAP SMEAR) 01/16/2013 ROEL RN EMERGENCY GODWIN 305.1 TOBACCO ABUSE 01/16/2013 ROEL RN EMERGENCY, GODWIN 626.1 OLIGOMENORRHEA 01/16/2013 ROEL RN EMERGENCY, GODWIN V73.81 HPV SCREENING 01/16/2013 ROEL RN EMERGENCY, GODWIN V74.5 STD SCREEN 01/16/2013 ROEL RN EMERGENCY, GODWIN V76.2 CERVICAL CANCER SCREENING (PAP SMEAR) 01/16/2013 BRYAN RN EMERGENCY, FLO L 305.1 TOBACCO ABUSE 01/16/2013 MAD RN EMERGENCY, FLO L 626.1 OLIGOMENORRHEA 01/16/2013 MAD RN EMERGENCY, FLO L V73.81 HPV SCREENING 01/16/2013 MAD RN EMERGENCY, FLO L V74.5 STD SCREEN 01/16/2013 MAD RN EMERGENCY, FLO L V76.2 CERVICAL CANCER SCREENING (PAP SMEAR) 01/16/2013 MADL RN EMERGENCY, FLO L 305.1 TOBACCO ABUSE 01/16/2013 MADL RN EMERGENCY, FLO L 626.1 OLIGOMENORRHEA 01/16/2013 MADL RN EMERGENCY, FLO L V73.81 HPV SCREENING 01/16/2013 BRYANL RN EMERGENCY, FLO L V74.5 STD SCREEN 01/16/2013 LISA RN EMERGENCY, FLO L V76.2 CERVICAL CANCER SCREENING (PAP SMEAR) 01/16/2013 ROEL GODWIN MENG 305.1 TOBACCO ABUSE 01/16/2013 ROEL RN EMERGENCY, GODWIN 626.1 OLIGOMENORRHEA 01/16/2013 ROEL RN EMERGENCY, GODWIN V73.81 HPV SCREENING 01/16/2013 ROEL RN EMERGENCY, GODWIN V74.5 STD SCREEN 01/16/2013 ROEL RN EMERGENCY, GODWIN V76.2 CERVICAL CANCER SCREENING (PAP SMEAR) 01/16/2013 SONNYELIAS Kirkpatrick APRN A 305.1 TOBACCO ABUSE 01/16/2013 SONNY APRN, ELIAS A 626.1 OLIGOMENORRHEA 01/16/2013 SONNYCasimiro MENG ELIAS A V73.81 HPV SCREENING 01/16/2013 SONNYCasimiro MENG ELIAS A V74.5 STD SCREEN 01/16/2013 SONNY TAQUERIA ELIAS A V76.2 CERVICAL CANCER SCREENING (PAP SMEAR) 01/16/2013 [facility], DEMOND R 305.1 TOBACCO ABUSE 01/16/2013 [facility], DEMOND R 626.1 OLIGOMENORRHEA 01/16/2013 [facility], DEMOND R V73.81 HPV SCREENING 01/16/2013 [facility], DEMOND R V74.5 STD SCREEN 01/16/2013 [facility], DEMOND R V76.2 CERVICAL CANCER SCREENING (PAP SMEAR) 01/16/2013 LISA MENG, FLO L 305.1 TOBACCO ABUSE 01/16/2013 LISA RN EMERGENCY, FLO L 626.1 OLIGOMENORRHEA 01/16/2013 MADTima RN EMERGENCY, FLO L V73.81 HPV SCREENING 01/16/2013 BRYANTima RN EMERGENCY, FLO L V74.5 STD SCREEN 01/16/2013 BRYAN RN EMERGENCY, FLO L V76.2 CERVICAL CANCER SCREENING (PAP SMEAR) 01/16/2013 JOSE SILEVRIO DDS 305.1 TOBACCO ABUSE 01/16/2013 JOSE SILVERIO DDS 626.1 OLIGOMENORRHEA 01/16/2013 SILVERIO DDS, JOSE V73.81 HPV SCREENING 01/16/2013 SILVERIO DDS, JOSE V74.5 STD SCREEN 01/16/2013 SILVERIO DDS, JOSE V76.2 CERVICAL CANCER SCREENING (PAP SMEAR) 01/16/2013 [facility], DEMOND R 305.1 TOBACCO ABUSE 01/16/2013 [facility], DEMOND R 626.1 OLIGOMENORRHEA 01/16/2013 [facility], DEMOND R V73.81 HPV SCREENING 01/16/2013 [facility], DEMOND R V74.5 STD SCREEN 01/16/2013 [facility], DEMOND R V76.2 CERVICAL CANCER SCREENING (PAP SMEAR) 01/16/2013 [facility], DEMOND R 305.1 TOBACCO ABUSE 01/16/2013 [facility], DEMOND R 626.1 OLIGOMENORRHEA 01/16/2013 [facility], DEMOND R V73.81 HPV SCREENING 01/16/2013 [facility], DEMOND R V74.5 STD SCREEN 01/16/2013 [facility], DEMOND R V76.2 CERVICAL CANCER SCREENING (PAP SMEAR) 01/16/2013 [facility]WIN 305.1 TOBACCO ABUSE 01/16/2013 [facility], [facility]WIN 626.1 OLIGOMENORRHEA 01/16/2013 [facility], [facility] V73.81 HPV SCREENING 01/16/2013 [facility], [facility] V74.5 STD SCREEN 01/16/2013 [facility], [facility]WIN V76.2 CERVICAL CANCER SCREENING (PAP SMEAR) 01/16/2013 NICOLA MANUEL DO K 305.1 TOBACCO ABUSE 01/16/2013 MARAL MANUEL DOA K 626.1 OLIGOMENORRHEA 01/16/2013 MANUEL DO NICOLA K V73.81 HPV SCREENING 01/16/2013 MAR BLANTON INCOLA K V74.5 STD SCREEN 01/16/2013 MAR BLANTON NICOLA K V76.2 CERVICAL CANCER SCREENING (PAP SMEAR) 01/16/2013 [facility], [facility] 305.1 TOBACCO ABUSE 01/16/2013 [facility], [facility] 626.1 OLIGOMENORRHEA 01/16/2013 [facility], [facility] V73.81 HPV SCREENING 01/16/2013 [facility], [facility] V74.5 STD SCREEN 01/16/2013 [facility], [facility] V76.2 CERVICAL CANCER SCREENING (PAP SMEAR) 01/16/2013 RO[facility] MENG [facility]WIN 305.1 TOBACCO ABUSE 01/16/2013 [facility], [facility] 626.1 OLIGOMENORRHEA 01/16/2013 [facility], [facility] V73.81 HPV SCREENING 01/16/2013 ROELSAM MENG, GODWIN V74.5 STD SCREEN 01/16/2013 [facility], [facility]WIN V76.2 CERVICAL CANCER SCREENING (PAP SMEAR) 01/24/2013 JASON SOLANO DO 296.90 MOOD DISORDER NOS 01/24/2013 296.90 MOOD DISORDER NOS 01/24/2013 296.90 MOOD DISORDER NOS 01/24/2013 296.90 MOOD DISORDER NOS 01/24/2013 296.90 MOOD DISORDER NOS 01/24/2013 296.90 MOOD DISORDER NOS 01/24/2013 296.90 MOOD DISORDER NOS 01/24/2013 296.90 MOOD DISORDER NOS 01/24/2013 296.90 MOOD DISORDER NOS 01/24/2013 296.90 MOOD DISORDER NOS 01/24/2013 296.90 MOOD DISORDER NOS 01/24/2013 296.90 MOOD DISORDER NOS 01/24/2013 NICOLA MANUEL DO 296.90 MOOD DISORDER NOS 01/24/2013 JASON HUNTER APRN 296.90 MOOD DISORDER NOS 01/24/2013 WOLF JAMA MD 296.90 MOOD DISORDER NOS 01/24/2013 NICOLA MANUEL DO 296.90 MOOD DISORDER NOS 01/24/2013 KELY FRIEDMAN DDS 296.90 MOOD DISORDER NOS 01/24/2013 JASON HUNTER APRN 296.90 MOOD DISORDER NOS 01/24/2013 JASON HUNTER APRN 296.90 MOOD DISORDER NOS 01/24/2013 JASON HUNTER APRN 296.90 MOOD DISORDER NOS 01/24/2013 WOLF JAMA MD 296.90 MOOD DISORDER NOS 01/24/2013 MICHAEL SEVILLA APRNETTE 296.90 MOOD DISORDER NOS 01/24/2013 FLO GONZALEZ APRN 296.90 MOOD DISORDER NOS 01/24/2013 MICHAEL SEVILLA APRNETTE 296.90 MOOD DISORDER NOS 01/24/2013 MADL RN EMERGENC[facility], FLO L 296.90 MOOD DISORDER NOS 01/24/2013 [facility], [facility]WIN 296.90 MOOD DISORDER NOS 01/24/2013 [facility], GODWIN 296.90 MOOD DISORDER NOS 01/24/2013 MADL RN EMERGENCY, FLO L 296.90 MOOD DISORDER NOS 01/24/2013 MADL RN EMERGENCY, FLO L 296.90 MOOD DISORDER NOS 01/24/2013 [facility], [facility]WIN 296.90 MOOD DISORDER NOS 01/24/2013 SONNY RN EMERGENCY, ELIAS A 296.90 MOOD DISORDER NOS 01/24/2013 [facility], DEMOND R 296.90 MOOD DISORDER NOS 01/24/2013 [facility], FLO L 296.90 MOOD DISORDER NOS 01/24/2013 NUSRAT BAKER, JOSE 296.90 MOOD DISORDER NOS 01/24/2013 [facility], DEMOND R 296.90 MOOD DISORDER NOS 01/24/2013 [facility], [facility] R 296.90 MOOD DISORDER NOS 01/24/2013 [facility], [facility] 296.90 MOOD DISORDER NOS 01/24/2013 NICOLA MANUEL DO 296.90 MOOD DISORDER NOS 01/24/2013 [facility], [facility]WIN 296.90 MOOD DISORDER NOS 01/24/2013 [facility], [facility] 296.90 MOOD DISORDER NOS 02/13/2013 787.02 NAUSEA ALONE 02/13/2013 787.02 NAUSEA ALONE 02/13/2013 787.02 NAUSEA ALONE 02/13/2013 787.02 NAUSEA ALONE 02/13/2013 787.02 NAUSEA ALONE 02/13/2013 787.02 NAUSEA ALONE 02/13/2013 787.02 NAUSEA ALONE 02/13/2013 787.02 NAUSEA ALONE 02/13/2013 787.02 NAUSEA ALONE 02/13/2013 787.02 NAUSEA ALONE 02/13/2013 787.02 NAUSEA ALONE 02/13/2013 NICOLA MANUEL DO 787.02 NAUSEA ALONE 02/13/2013 JASON HUNTER APRN 787.02 NAUSEA ALONE 02/13/2013 WOLF JAMA MD 787.02 NAUSEA ALONE 02/13/2013 NICOLA MANUEL DO 787.02 NAUSEA ALONE 02/13/2013 KELY FRIEDMAN DDS 787.02 NAUSEA ALONE 02/13/2013 JASON HUNTER APRN 787.02 NAUSEA ALONE 02/13/2013 JASON HUNTER APRN 787.02 NAUSEA ALONE 02/13/2013 JASON HUNTER APRN 787.02 NAUSEA ALONE 02/13/2013 WOLF JAMA MD 787.02 NAUSEA ALONE 02/13/2013 [facility], [facility] 787.02 NAUSEA ALONE 02/13/2013 MADL RN EMERGENCY, FLO L 787.02 NAUSEA ALONE 02/13/2013 [facility], [facility] 787.02 NAUSEA ALONE 02/13/2013 MADL RN EMERGENCY, FLO L 787.02 NAUSEA ALONE 02/13/2013 [facility], [facility] 787.02 NAUSEA ALONE 02/13/2013 [facility], [facility]WIN 787.02 NAUSEA ALONE 02/13/2013 MADL RN EMERGENCY, FLO L 787.02 NAUSEA ALONE 02/13/2013 MADL RN EMERGENCY, FLO L 787.02 NAUSEA ALONE 02/13/2013 [facility], [facility] 787.02 NAUSEA ALONE 02/13/2013 ELIAS DENNIS APRN 787.02 NAUSEA ALONE 02/13/2013 [facility], DEMOND R 787.02 NAUSEA ALONE 02/13/2013 MADTima RN EMERGENCY, FLO L 787.02 NAUSEA ALONE 02/13/2013 JOSE SILVERIO DDS 787.02 NAUSEA ALONE 02/13/2013 [facility], [facility]OND R 787.02 NAUSEA ALONE 02/13/2013 [facility], [facility] R 787.02 NAUSEA ALONE 02/13/2013 [facility], [facility] 787.02 NAUSEA ALONE 02/13/2013 NICOLA MANUEL DO 787.02 NAUSEA ALONE 02/13/2013 [facility], [facility] 787.02 NAUSEA ALONE 02/13/2013 [facility], [facility] 787.02 NAUSEA ALONE 03/23/2013 309.81 AN PTSD 03/23/2013 309.81 AN PTSD 03/23/2013 309.81 AN PTSD 03/23/2013 309.81 AN PTSD 03/23/2013 309.81 AN PTSD 03/23/2013 309.81 AN PTSD 03/23/2013 309.81 AN PTSD 03/23/2013 NICOLA MANUEL DO K 309.81 AN PTSD 03/23/2013 JASON HUNTER APRN 309.81 AN PTSD 03/23/2013 WOLF JAMA MD 309.81 AN PTSD 03/23/2013 NICOLA MANUEL DO K 309.81 AN PTSD 03/23/2013 KELY FRIEDMAN DDS 309.81 AN PTSD 03/23/2013 GARTON JASON MENG D 309.81 AN PTSD 03/23/2013 JASON HUNTER APRN D 309.81 AN PTSD 03/23/2013 JASON HUNTER APRN D 309.81 AN PTSD 03/23/2013 WOLF JAMA MD 309.81 AN PTSD 03/23/2013 ROEL RN EMERGENCY, GODWIN 309.81 AN PTSD 03/23/2013 MADL RN EMERGENCY, FLO L 309.81 AN PTSD 03/23/2013 ROEL RN EMERGENCY, GODWIN 309.81 AN PTSD 03/23/2013 MADL RN EMERGENCY, FLO L 309.81 AN PTSD 03/23/2013 ROEL RN EMERGENCY, GODWIN 309.81 AN PTSD 03/23/2013 ROEL RN EMERGENCY, GODWIN 309.81 AN PTSD 03/23/2013 MADL RN EMERGENCY, FLO L 309.81 AN PTSD 03/23/2013 MADL RN EMERGENCY, FLO L 309.81 AN PTSD 03/23/2013 ROEL RN EMERGENCY, GODWIN 309.81 AN PTSD 03/23/2013 SONNY RN EMERGENCY, ELIAS A 309.81 AN PTSD 03/23/2013 [facility], DEMOND R 309.81 AN PTSD 03/23/2013 MADL RN EMERGENCY, FLO L 309.81 AN PTSD 03/23/2013 JOSE SILVERIO DDS 309.81 AN PTSD 03/23/2013 [facility], DEMOND R 309.81 AN PTSD 03/23/2013 [facility], DEMOND R 309.81 AN PTSD 03/23/2013 ROEL RN EMERGENCY, GODWIN 309.81 AN PTSD 03/23/2013 NICOLA MANUEL DO K 309.81 AN PTSD 03/23/2013 GODWIN SEVILLA APRN 309.81 AN PTSD 03/23/2013 GODWIN SEVILLA APRN 309.81 AN PTSD 04/20/2013 ARMANDO JONES, JESSIE Workman Ot 427.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 04/20/2013 ARMANDO JONES, JESSIE Workman Ot 785.1 PALPITATIONS 04/26/2013 724.2 LUMBAGO/ LOW BACK PAIN 04/26/2013 724.2 LUMBAGO/ LOW BACK PAIN 04/26/2013 724.2 LUMBAGO/ LOW BACK PAIN 04/26/2013 724.2 LUMBAGO/ LOW BACK PAIN 04/26/2013 724.2 LUMBAGO/ LOW BACK PAIN 04/26/2013 NICOLA MANUEL DO 724.2 LUMBAGO/ LOW BACK PAIN 04/26/2013 JASON HUNTER APRN 724.2 LUMBAGO/ LOW BACK PAIN 04/26/2013 WOLF JAMA MD 724.2 LUMBAGO/ LOW BACK PAIN 04/26/2013 NICOLA MANUEL DO 724.2 LUMBAGO/ LOW BACK PAIN 04/26/2013 IDALIA JENKINSS, KELY Dickens 724.2 LUMBAGO/ LOW BACK PAIN 04/26/2013 JASON HUNTER APRN 724.2 LUMBAGO/ LOW BACK PAIN 04/26/2013 JASON HUNTER APRN 724.2 LUMBAGO/ LOW BACK PAIN 04/26/2013 JASON HUNTER APRN 724.2 LUMBAGO/ LOW BACK PAIN 04/26/2013 WOLF JAMA MD 724.2 LUMBAGO/ LOW BACK PAIN 04/26/2013 GODWIN SEVILLA APRN 724.2 LUMBAGO/ LOW BACK PAIN 04/26/2013 LISA MENG, FLO L 724.2 LUMBAGO/ LOW BACK PAIN 04/26/2013 GODWIN SEVILLA APRN 724.2 LUMBAGO/ LOW BACK PAIN 04/26/2013 LISA MENG, FLO L 724.2 LUMBAGO/ LOW BACK PAIN 04/26/2013 GODWIN SEVILLA APRN 724.2 LUMBAGO/ LOW BACK PAIN 04/26/2013 ROEL RN EMERGENCY, GODWIN 724.2 LUMBAGO/ LOW BACK PAIN 04/26/2013 MADL RN EMERGENCY, FLO L 724.2 LUMBAGO/ LOW BACK PAIN 04/26/2013 MADL RN EMERGENCY, FLO L 724.2 LUMBAGO/ LOW BACK PAIN 04/26/2013 ROEL RN EMERGENCY, GODWIN 724.2 LUMBAGO/ LOW BACK PAIN 04/26/2013 SONNY RN EMERGENCY, ELIAS A 724.2 LUMBAGO/ LOW BACK PAIN 04/26/2013 [facility] 724.2 LUMBAGO/ LOW BACK PAIN 04/26/2013 MADL RN EMERGENCY, FLO L 724.2 LUMBAGO/ LOW BACK PAIN 04/26/2013 NUSRAT BAKER, JOSE 724.2 LUMBAGO/ LOW BACK PAIN 04/26/2013 [facility] 724.2 LUMBAGO/ LOW BACK PAIN 04/26/2013 [facility], DEMOND R 724.2 LUMBAGO/ LOW BACK PAIN 04/26/2013 ROEL RN EMERGENCY, GODWIN 724.2 LUMBAGO/ LOW BACK PAIN 04/26/2013 MANUEL DO, NICOLA K 724.2 LUMBAGO/ LOW BACK PAIN 04/26/2013 ROEL RN EMERGENCY, GODWIN 724.2 LUMBAGO/ LOW BACK PAIN 04/26/2013 ROEL RN EMERGENCY, GODWIN 724.2 LUMBAGO/ LOW BACK PAIN 04/29/2013 799.81 DECREASED LIBIDO 04/29/2013 V26.9 PROCREATIVE MANAGEMENT 04/29/2013 799.81 DECREASED LIBIDO 04/29/2013 V26.9 PROCREATIVE MANAGEMENT 04/29/2013 799.81 DECREASED LIBIDO 04/29/2013 V26.9 PROCREATIVE MANAGEMENT 04/29/2013 799.81 DECREASED LIBIDO 04/29/2013 V26.9 PROCREATIVE MANAGEMENT 04/29/2013 MANUEL DOMARALA K 799.81 DECREASED LIBIDO 04/29/2013 MANUEL DOMARALA K V26.9 PROCREATIVE MANAGEMENT 04/29/2013 JASON HUNTER APRN 799.81 DECREASED LIBIDO 04/29/2013 JASON HUNTER APRN V26.9 PROCREATIVE MANAGEMENT 04/29/2013 WOLF JAMA MD 799.81 DECREASED LIBIDO 04/29/2013 WOLF JAMA MD V26.9 PROCREATIVE MANAGEMENT 04/29/2013 MANUEL DO, NICOLA K 799.81 DECREASED LIBIDO 04/29/2013 MANUEL DO, NICOLA K V26.9 PROCREATIVE MANAGEMENT 04/29/2013 WHITE DDS, KELY J 799.81 DECREASED LIBIDO 04/29/2013 WHITE DDS, KELY J V26.9 PROCREATIVE MANAGEMENT 04/29/2013 JASON HUNTER APRN 799.81 DECREASED LIBIDO 04/29/2013 JASON HUNTER APRN V26.9 PROCREATIVE MANAGEMENT 04/29/2013 JASON HUNTER APRN 799.81 DECREASED LIBIDO 04/29/2013 JASON HUNTER APRN V26.9 PROCREATIVE MANAGEMENT 04/29/2013 JASON HUNTER APRN 799.81 DECREASED LIBIDO 04/29/2013 JASON HUNTER APRN V26.9 PROCREATIVE MANAGEMENT 04/29/2013 WOLF JAMA MD 799.81 DECREASED LIBIDO 04/29/2013 WOLF JAMA MD V26.9 PROCREATIVE MANAGEMENT 04/29/2013 GODWIN SEVILLA APRN 799.81 DECREASED LIBIDO 04/29/2013 ROEL MENG GODWIN V26.9 PROCREATIVE MANAGEMENT 04/29/2013 ROSITA GONZALEZ APRNA L 799.81 DECREASED LIBIDO 04/29/2013 BRYANL RN EMERGENCYROSITA KirkpatrickA L V26.9 PROCREATIVE MANAGEMENT 04/29/2013 ROEL RN EMERGENCY, GODWIN 799.81 DECREASED LIBIDO 04/29/2013 ROEL RN EMERGENCY, GODWIN V26.9 PROCREATIVE MANAGEMENT 04/29/2013 BRYANL RN EMERGENCY, FLO L 799.81 DECREASED LIBIDO 04/29/2013 LISA MENG FLO L V26.9 PROCREATIVE MANAGEMENT 04/29/2013 ROEL RN EMERGENCY, GODWIN 799.81 DECREASED LIBIDO 04/29/2013 ROEL RN EMERGENCY, GODWIN V26.9 PROCREATIVE MANAGEMENT 04/29/2013 ROEL RN EMERGENCY, GODWIN 799.81 DECREASED LIBIDO 04/29/2013 ROEL RN EMERGENCY, GODWIN V26.9 PROCREATIVE MANAGEMENT 04/29/2013 MADL RN EMERGENCY, FLO L 799.81 DECREASED LIBIDO 04/29/2013 MADL RN EMERGENCY, FLO L V26.9 PROCREATIVE MANAGEMENT 04/29/2013 MADL RN EMERGENCY, FLO L 799.81 DECREASED LIBIDO 04/29/2013 MADL RN EMERGENCY, FLO L V26.9 PROCREATIVE MANAGEMENT 04/29/2013 ROEL RN EMERGENCY, GODWIN 799.81 DECREASED LIBIDO 04/29/2013 ROEL RN EMERGENCY, GODWIN V26.9 PROCREATIVE MANAGEMENT 04/29/2013 SONNY RN EMERGENCY, ELIAS A 799.81 DECREASED LIBIDO 04/29/2013 SONNY RN EMERGENCY, ELIAS A V26.9 PROCREATIVE MANAGEMENT 04/29/2013 [facility], DEMOND R 799.81 DECREASED LIBIDO 04/29/2013 [facility], DEMOND R V26.9 PROCREATIVE MANAGEMENT 04/29/2013 MADL RN EMERGENCY, FLO L 799.81 DECREASED LIBIDO 04/29/2013 MADL RN EMERGENCY, FLO L V26.9 PROCREATIVE MANAGEMENT 04/29/2013 SILVERIO DDS, JOSE 799.81 DECREASED LIBIDO 04/29/2013 SILVERIO DDS, JOSE V26.9 PROCREATIVE MANAGEMENT 04/29/2013 [facility], DEMOND R 799.81 DECREASED LIBIDO 04/29/2013 [facility], DEMOND R V26.9 PROCREATIVE MANAGEMENT 04/29/2013 [facility], DEMOND R 799.81 DECREASED LIBIDO 04/29/2013 [facility], DEMOND R V26.9 PROCREATIVE MANAGEMENT 04/29/2013 ROEL RN EMERGENCY, GODWIN 799.81 DECREASED LIBIDO 04/29/2013 ROEL RN EMERGENCY, GODWIN V26.9 PROCREATIVE MANAGEMENT 04/29/2013 MANUEL DO, NICOLA K 799.81 DECREASED LIBIDO 04/29/2013 MANUEL DO, NICOLA K V26.9 PROCREATIVE MANAGEMENT 04/29/2013 ROEL RN EMERGENCY, GODWIN 799.81 DECREASED LIBIDO 04/29/2013 ROEL RN EMERGENCY, GODWIN V26.9 PROCREATIVE MANAGEMENT 04/29/2013 ROEL RN EMERGENCY, GODWIN 799.81 DECREASED LIBIDO 04/29/2013 ROEL RN EMERGENCY, GODWIN V26.9 PROCREATIVE MANAGEMENT 04/30/2013 MEJIA JONES, YAW R Ot 338.29 OTHER CHRONIC PAIN 04/30/2013 MEJIA JONES, YAW R Ot 724.2 LUMBAGO 05/17/2013 338.29 CHRONIC PAIN 05/17/2013 MANUEL DO, NICOLA K 338.29 CHRONIC PAIN 05/17/2013 JASON HUNTER APRN 338.29 CHRONIC PAIN 05/17/2013 WOLF JAMA MD 338.29 CHRONIC PAIN 05/17/2013 MANUEL DO, NICOLA K 338.29 CHRONIC PAIN 05/17/2013 IDALIA BAKER, KELY Dickens 338.29 CHRONIC PAIN 05/17/2013 JASON HUNTER APRN 338.29 CHRONIC PAIN 05/17/2013 JASON HUNTER APRN 338.29 CHRONIC PAIN 05/17/2013 JASON HUNTER APRN 338.29 CHRONIC PAIN 05/17/2013 WOLF JAMA MD 338.29 CHRONIC PAIN 05/17/2013 ROEL RN EMERGENCY, GODWIN 338.29 CHRONIC PAIN 05/17/2013 MADL RN EMERGENCY, FLO L 338.29 CHRONIC PAIN 05/17/2013 ROEL RN EMERGENCY, GODWIN 338.29 CHRONIC PAIN 05/17/2013 MADL RN EMERGENCY, FLO L 338.29 CHRONIC PAIN 05/17/2013 ROEL RN EMERGENCY, GODWIN 338.29 CHRONIC PAIN 05/17/2013 ROEL RN EMERGENCY, GODWIN 338.29 CHRONIC PAIN 05/17/2013 MADL RN EMERGENCY, FLO L 338.29 CHRONIC PAIN 05/17/2013 MADL RN EMERGENCY, FLO L 338.29 CHRONIC PAIN 05/17/2013 ROEL RN EMERGENCY, GODWIN 338.29 CHRONIC PAIN 05/17/2013 SONNY MENG ELIAS A 338.29 CHRONIC PAIN 05/17/2013 [facility], DEMOND R 338.29 CHRONIC PAIN 05/17/2013 MADL RN EMERGENCY, FLO L 338.29 CHRONIC PAIN 05/17/2013 NUSRAT BAKER, JOSE 338.29 CHRONIC PAIN 05/17/2013 [facility], DEMOND R 338.29 CHRONIC PAIN 05/17/2013 [facility], DEMOND R 338.29 CHRONIC PAIN 05/17/2013 ROEL RN EMERGENCY, GODWIN 338.29 CHRONIC PAIN 05/17/2013 MANUEL DO, NICOLA K 338.29 CHRONIC PAIN 05/17/2013 ROEL RN EMERGENCY, GODWIN 338.29 CHRONIC PAIN 05/17/2013 ROEL RN EMERGENCY, GODWIN 338.29 CHRONIC PAIN 06/22/2013 V70.5 HEALTH EXAMINATION OF DEFINED SUBPOPULATIONS 06/22/2013 MANUEL DO, NICOLA K V70.5 HEALTH EXAMINATION OF DEFINED SUBPOPULATIONS 06/22/2013 JASON HUNTER APRN V70.5 HEALTH EXAMINATION OF DEFINED SUBPOPULATIONS 06/22/2013 WOLF JAMA MD V70.5 HEALTH EXAMINATION OF DEFINED SUBPOPULATIONS 06/22/2013 MANUEL DO, NICOLA K V70.5 HEALTH EXAMINATION OF DEFINED SUBPOPULATIONS 06/22/2013 IDALIA BAKER, KELY Dickens V70.5 HEALTH EXAMINATION OF DEFINED SUBPOPULATIONS 06/22/2013 JASON HUNTER APRN V70.5 HEALTH EXAMINATION OF DEFINED SUBPOPULATIONS 06/22/2013 JASON HUNTER APRN V70.5 HEALTH EXAMINATION OF DEFINED SUBPOPULATIONS 06/22/2013 JASON HUNTER APRN V70.5 HEALTH EXAMINATION OF DEFINED SUBPOPULATIONS 06/22/2013 WOLF JAMA MD V70.5 HEALTH EXAMINATION OF DEFINED SUBPOPULATIONS 06/22/2013 ROEL RN EMERGENCY, GODWIN V70.5 HEALTH EXAMINATION OF DEFINED SUBPOPULATIONS 06/22/2013 MADL RN EMERGENCY, FLO L V70.5 HEALTH EXAMINATION OF DEFINED SUBPOPULATIONS 06/22/2013 ROEL RN EMERGENCY, GODWIN V70.5 HEALTH EXAMINATION OF DEFINED SUBPOPULATIONS 06/22/2013 MADL RN EMERGENCY, FLO L V70.5 HEALTH EXAMINATION OF DEFINED SUBPOPULATIONS 06/22/2013 ROEL RN EMERGENCY, GODWIN V70.5 HEALTH EXAMINATION OF DEFINED SUBPOPULATIONS 06/22/2013 ROEL RN EMERGENCY, GODWIN V70.5 HEALTH EXAMINATION OF DEFINED SUBPOPULATIONS 06/22/2013 MADL RN EMERGENCY, FLO L V70.5 HEALTH EXAMINATION OF DEFINED SUBPOPULATIONS 06/22/2013 MADL RN EMERGENCY, FLO L V70.5 HEALTH EXAMINATION OF DEFINED SUBPOPULATIONS 06/22/2013 ROEL RN EMERGENCY, GODWIN V70.5 HEALTH EXAMINATION OF DEFINED SUBPOPULATIONS 06/22/2013 SONNYELIAS PHILLIP APRN V70.5 HEALTH EXAMINATION OF DEFINED SUBPOPULATIONS 06/22/2013 [facility], DEMOND R V70.5 HEALTH EXAMINATION OF DEFINED SUBPOPULATIONS 06/22/2013 MADL RN EMERGENCYFLO Kirkpatrick V70.5 HEALTH EXAMINATION OF DEFINED SUBPOPULATIONS 06/22/2013 JOSE SILVERIO DDS V70.5 HEALTH EXAMINATION OF DEFINED SUBPOPULATIONS 06/22/2013 [facility], DEMOND R V70.5 HEALTH EXAMINATION OF DEFINED SUBPOPULATIONS 06/22/2013 [facility], DEMOND R V70.5 HEALTH EXAMINATION OF DEFINED SUBPOPULATIONS 06/22/2013 ROEL RN EMERGENCY, GODWIN V70.5 HEALTH EXAMINATION OF DEFINED SUBPOPULATIONS 06/22/2013 NICOLA MANUEL DO V70.5 HEALTH EXAMINATION OF DEFINED SUBPOPULATIONS 06/22/2013 ROEL RN EMERGENCY, GODWIN V70.5 HEALTH EXAMINATION OF DEFINED SUBPOPULATIONS 06/22/2013 ROEL RN EMERGENCY, GODWIN V70.5 HEALTH EXAMINATION OF DEFINED SUBPOPULATIONS 07/04/2013 NICOLA MANUEL DO 296.30 MO DEPRESSIVE RECURRENT UNSPECIFIED 07/04/2013 JASON HUNTER APRN 296.30 MO DEPRESSIVE RECURRENT UNSPECIFIED 07/04/2013 WOLF JAMA MD 296.30 MO DEPRESSIVE RECURRENT UNSPECIFIED 07/04/2013 NICOLA MANUEL DO 296.30 MO DEPRESSIVE RECURRENT UNSPECIFIED 07/04/2013 KELY FRIEDMAN DDS 296.30 MO DEPRESSIVE RECURRENT UNSPECIFIED 07/04/2013 JASON HUNTER APRN 296.30 MO DEPRESSIVE RECURRENT UNSPECIFIED 07/04/2013 JASON HUNTER APRN 296.30 MO DEPRESSIVE RECURRENT UNSPECIFIED 07/04/2013 JASON HUNTER APRN 296.30 MO DEPRESSIVE RECURRENT UNSPECIFIED 07/04/2013 WOLF JAMA MD 296.30 MO DEPRESSIVE RECURRENT UNSPECIFIED 07/04/2013 ROEL MENG GODWIN 296.30 MO DEPRESSIVE RECURRENT UNSPECIFIED 07/04/2013 FLO GONZALEZ APRN 296.30 MO DEPRESSIVE RECURRENT UNSPECIFIED 07/04/2013 ROEL MENG GODWIN 296.30 MO DEPRESSIVE RECURRENT UNSPECIFIED 07/04/2013 MADL RN EMERGENCY, FLO L 296.30 MO DEPRESSIVE RECURRENT UNSPECIFIED 07/04/2013 ROEL RN EMERGENCY, GODWIN 296.30 MO DEPRESSIVE RECURRENT UNSPECIFIED 07/04/2013 ROEL RN EMERGENCY, GODWIN 296.30 MO DEPRESSIVE RECURRENT UNSPECIFIED 07/04/2013 MADL RN EMERGENCY, FLO L 296.30 MO DEPRESSIVE RECURRENT UNSPECIFIED 07/04/2013 MADL RN EMERGENCY, FLO L 296.30 MO DEPRESSIVE RECURRENT UNSPECIFIED 07/04/2013 ROEL RN EMERGENCY, GODWIN 296.30 MO DEPRESSIVE RECURRENT UNSPECIFIED 07/04/2013 SONYN RN EMERGENCY, ELIAS A 296.30 MO DEPRESSIVE RECURRENT UNSPECIFIED 07/04/2013 [facility], DEMOND R 296.30 MO DEPRESSIVE RECURRENT UNSPECIFIED 07/04/2013 MADL RN EMERGENCY, FLO L 296.30 MO DEPRESSIVE RECURRENT UNSPECIFIED 07/04/2013 JOSE SILVERIO DDS 296.30 MO DEPRESSIVE RECURRENT UNSPECIFIED 07/04/2013 [facility], DEMOND R 296.30 MO DEPRESSIVE RECURRENT UNSPECIFIED 07/04/2013 [facility], DEMOND R 296.30 MO DEPRESSIVE RECURRENT UNSPECIFIED 07/04/2013 ROEL RN EMERGENCY, GODWIN 296.30 MO DEPRESSIVE RECURRENT UNSPECIFIED 07/04/2013 NICOLA MANUEL DO 296.30 MO DEPRESSIVE RECURRENT UNSPECIFIED 07/04/2013 ROEL RN EMERGENCY, GODWIN 296.30 MO DEPRESSIVE RECURRENT UNSPECIFIED 07/04/2013 ROEL RN EMERGENCY, GODWIN 296.30 MO DEPRESSIVE RECURRENT UNSPECIFIED 08/14/2013 JASON HUNTER APRN V23.9 , HIGH-RISK (UNSPEC) 08/14/2013 WOLF JAMA MD V23.9 , HIGH-RISK (UNSPEC) 08/14/2013 NICOLA MANUEL DO V23.9 , HIGH-RISK (UNSPEC) 08/14/2013 KELY FRIEDMAN DDS V23.9 , HIGH-RISK (UNSPEC) 08/14/2013 JASON HUNTER APRN V23.9 , HIGH-RISK (UNSPEC) 08/14/2013 JASON HUNTER APRN V23.9 , HIGH-RISK (UNSPEC) 08/14/2013 JASON HUNTER APRN V23.9 , HIGH-RISK (UNSPEC) 08/14/2013 EVITA JONES, WOLF V23.9 , HIGH-RISK (UNSPEC) 08/14/2013 ROEL RN EMERGENCY, GODWIN V23.9 , HIGH-RISK (UNSPEC) 08/14/2013 MADL RN EMERGENCY, FLO L V23.9 , HIGH-RISK (UNSPEC) 08/14/2013 ROEL RN EMERGENCY, GODWIN V23.9 , HIGH-RISK (UNSPEC) 08/14/2013 MADL RN EMERGENCY, FLO L V23.9 , HIGH-RISK (UNSPEC) 08/14/2013 ROEL RN EMERGENCY, GODWIN V23.9 , HIGH-RISK (UNSPEC) 08/14/2013 ROEL RN EMERGENCY, GODWIN V23.9 , HIGH-RISK (UNSPEC) 08/14/2013 MADL RN EMERGENCY, FLO L V23.9 , HIGH-RISK (UNSPEC) 08/14/2013 MADL RN EMERGENCY, FLO L V23.9 , HIGH-RISK (UNSPEC) 08/14/2013 ROEL RN EMERGENCY, GODWIN V23.9 , HIGH-RISK (UNSPEC) 08/14/2013 SONNY RN EMERGENCY, ELIAS A V23.9 , HIGH-RISK (UNSPEC) 08/14/2013 [facility], DEMOND R V23.9 , HIGH-RISK (UNSPEC) 08/14/2013 MADL RN EMERGENCY, FLO L V23.9 , HIGH-RISK (UNSPEC) 08/14/2013 JOSE SILVERIO DDS V23.9 , HIGH-RISK (UNSPEC) 08/14/2013 [facility], DEMOND R V23.9 , HIGH-RISK (UNSPEC) 08/14/2013 [facility], DEMOND R V23.9 , HIGH-RISK (UNSPEC) 08/14/2013 ROEL RN EMERGENCY, GODWIN V23.9 , HIGH-RISK (UNSPEC) 08/14/2013 NICOLA MANUEL DO V23.9 , HIGH-RISK (UNSPEC) 08/14/2013 ROEL RN EMERGENCY, GODWIN V23.9 , HIGH-RISK (UNSPEC) 08/14/2013 ROEL RN EMERGENCY, GODWIN V23.9 , HIGH-RISK (UNSPEC) 09/11/2013 WOLF JAMA MD 788.1 DYSURIA 09/11/2013 NICOLA MANUEL DO K 788.1 DYSURIA 09/11/2013 KELY FRIEDMAN DDS 788.1 DYSURIA 09/11/2013 JASON HUNTER APRN 788.1 DYSURIA 09/11/2013 JASON HUNTER APRN 788.1 DYSURIA 09/11/2013 GARJASON RENTERIA APRN D 788.1 DYSURIA 09/11/2013 WOLF JAMA MD 788.1 DYSURIA 09/11/2013 ROEL RN EMERGENCY, GODWIN 788.1 DYSURIA 09/11/2013 MADL RN EMERGENCY, FLO L 788.1 DYSURIA 09/11/2013 ROEL RN EMERGENCY, GODWIN 788.1 DYSURIA 09/11/2013 MADL RN EMERGENCY, FLO L 788.1 DYSURIA 09/11/2013 ROEL RN EMERGENCY, GODWIN 788.1 DYSURIA 09/11/2013 ROEL RN EMERGENCY, GODWIN 788.1 DYSURIA 09/11/2013 MADL RN EMERGENCY, FLO L 788.1 DYSURIA 09/11/2013 MADL RN EMERGENCY, FLO L 788.1 DYSURIA 09/11/2013 ROEL RN EMERGENCY, GODWIN 788.1 DYSURIA 09/11/2013 SONNY APRN, ELIAS A 788.1 DYSURIA 09/11/2013 [facility], DEMOND R 788.1 DYSURIA 09/11/2013 MADL RN EMERGENCY, FLO L 788.1 DYSURIA 09/11/2013 JOSE SILVERIO DDS 788.1 DYSURIA 09/11/2013 [facility], DEMOND R 788.1 DYSURIA 09/11/2013 [facility], DEMOND R 788.1 DYSURIA 09/11/2013 ROEL RN EMERGENCY, GODWIN 788.1 DYSURIA 09/11/2013 NICOLA MANUEL DO K 788.1 DYSURIA 09/11/2013 ROEL RN EMERGENCY, GODWIN 788.1 DYSURIA 09/11/2013 ROEL RN EMERGENCY, GODWIN 788.1 DYSURIA 11/13/2013 JENNIFER MAYES MD Ot 623.5 NONINFECT VAG LEUKORRHEA 11/13/2013 JENNIFER MAYES MD Ot 654.73 ABNORM VAGINA-ANTEPARTUM 11/13/2013 JENNIFER MAYES MD, Ot V04.81 ND FOR PROPHYLACTIC VACCIN AND INOCULATI 02/11/2014 JENNIFER MAYES MD Ot 625.9 FEM GENITAL SYMPTOMS NOS 02/11/2014 JENNIFER MAYES MD, Ot 648.93 OTH CURR COND-ANTEPARTUM 03/14/2014 JENNIFER MAYES MD Ot 644.13 THREAT LABOR NEC-ANTEPAR 03/21/2014 JENNIFER MAYES MD, Ot 574.20 CHOLELITHIASIS NOS 03/21/2014 JENNIFER MAYES MD, Ot 646.83 PREG COMPL NEC-ANTEPART 03/21/2014 JENNIFER MAYES MD Ot 789.01 ABDOMINAL PAIN, RIGHT UPPER QUADRANT 03/26/2014 JENNIFER MAYES MD Ot 041.04 STREPTOCOCCUS INFECTION NOS, GROUP D (EN 03/26/2014 JENNIFER MAYES MD Ot 041.49 OTHER AND UNSPECIFIED ESCHERICHIA COLI [ 03/26/2014 JENNIFER MAYES MD Ot 615.9 UTERINE INFLAM DIS NOS 03/26/2014 JENNIFER MAYES MD Ot 646.61 INFECTION-DELIVERED 03/26/2014 JENNIFER MAYES MD Ot 656.81 FET/PLAC PROB NEC-DELIV 03/26/2014 JENNIFER MAYES MD, Ot 658.41 AMNIOTIC INFECTION-DELIV 03/26/2014 JENNIFER MAYES MD Ot V06.1 [id number], COMBINED [ 03/26/2014 JENNIFER MAYES MD, Ot V06.5 TETANUS-DIPHTHERIA [TD][DT] 03/26/2014 JENNIFER MAYES MD Ot V27.0 DELIVER-SINGLE LIVEBORN 05/01/2014 MIGDALIA RAMON DO Ot 599.0 URIN TRACT INFECTION NOS 05/01/2014 MIGDALIA RAMON DO Ot 724.5 BACKACHE NOS 05/27/2014 MADL RN EMERGENCY, FLO L 724.2 BACK PAIN, LOWER 05/27/2014 ROEL RN EMERGENCY, GODWIN 724.2 BACK PAIN, LOWER 05/27/2014 MADL RN EMERGENCY, FLO L 724.2 BACK PAIN, LOWER 05/27/2014 ROEL RN EMERGENCY, GODWIN 724.2 BACK PAIN, LOWER 05/27/2014 ROEL RN EMERGENCY, GODWIN 724.2 BACK PAIN, LOWER 05/27/2014 MADL RN EMERGENCY, FLO L 724.2 BACK PAIN, LOWER 05/27/2014 MADL RN EMERGENCY, FLO L 724.2 BACK PAIN, LOWER 05/27/2014 ROEL RN EMERGENCY, GODWIN 724.2 BACK PAIN, LOWER 05/27/2014 SONNY RN EMERGENCY, ELIAS A 724.2 BACK PAIN, LOWER 05/27/2014 [facility], DEMOND R 724.2 BACK PAIN, LOWER 05/27/2014 MADL RN EMERGENCY, FLO L 724.2 BACK PAIN, LOWER 05/27/2014 NUSRAT DDS, JOSE 724.2 BACK PAIN, LOWER 05/27/2014 [facility], DEMOND R 724.2 BACK PAIN, LOWER 05/27/2014 [facility], DEMOND R 724.2 BACK PAIN, LOWER 05/27/2014 ROEL RN EMERGENCY, GODWIN 724.2 BACK PAIN, LOWER 05/27/2014 MAR DO, NICOLA Workman 724.2 BACK PAIN, LOWER 05/27/2014 ROEL RN EMERGENCY, GODWIN 724.2 BACK PAIN, LOWER 05/27/2014 ROEL RN EMERGENCY, GODWIN 724.2 BACK PAIN, LOWER 06/05/2014 IVONNE JONES, REZA Steel Ot 490 BRONCHITIS NOS 06/05/2014 REZA CORONADO MD Ot 786.2 COUGH 06/10/2014 ROEL RN EMERGENCY, GODWIN 296.35 MO DEPRESSIVE RECURRENT IN PART OR UNSPECIFIED REMISSION 06/10/2014 ROEL MNEG, GODWIN 300.02 AN GEN ANXIETY 06/10/2014 MADL RN EMERGENCY, FLO L 296.35 MO DEPRESSIVE RECURRENT IN PART OR UNSPECIFIED REMISSION 06/10/2014 MADL RN EMERGENCY, FLO L 300.02 AN GEN ANXIETY 06/10/2014 ROEL RN EMERGENCY, GODWIN 296.35 MO DEPRESSIVE RECURRENT IN PART OR UNSPECIFIED REMISSION 06/10/2014 ROEL RN EMERGENCY, GODWIN 300.02 AN GEN ANXIETY 06/10/2014 ROEL RN EMERGENCY, GODWIN 296.35 MO DEPRESSIVE RECURRENT IN PART OR UNSPECIFIED REMISSION 06/10/2014 ROEL RN EMERGENCY, GODWIN 300.02 AN GEN ANXIETY 06/10/2014 MADL RN EMERGENCY, FLO L 296.35 MO DEPRESSIVE RECURRENT IN PART OR UNSPECIFIED REMISSION 06/10/2014 MADL RN EMERGENCY, FLO L 300.02 AN GEN ANXIETY 06/10/2014 MADL RN EMERGENCY, FLO L 296.35 MO DEPRESSIVE RECURRENT IN PART OR UNSPECIFIED REMISSION 06/10/2014 MADL RN EMERGENCY, FLO L 300.02 AN GEN ANXIETY 06/10/2014 ROEL RN EMERGENCY, GODWIN 296.35 MO DEPRESSIVE RECURRENT IN PART OR UNSPECIFIED REMISSION 06/10/2014 ROEL RN EMERGENCY, GODWIN 300.02 AN GEN ANXIETY 06/10/2014 SONNYKENJI MENG, ELIAS A 296.35 MO DEPRESSIVE RECURRENT IN PART OR UNSPECIFIED REMISSION 06/10/2014 SONNY APRN, ELIAS A 300.02 AN GEN ANXIETY 06/10/2014 [facility], DEMOND R 296.35 MO DEPRESSIVE RECURRENT IN PART OR UNSPECIFIED REMISSION 06/10/2014 [facility], DEMOND R 300.02 AN GEN ANXIETY 06/10/2014 MADL RN EMERGENCY, FLO L 296.35 MO DEPRESSIVE RECURRENT IN PART OR UNSPECIFIED REMISSION 06/10/2014 MADL RN EMERGENCY, FLO L 300.02 AN GEN ANXIETY 06/10/2014 NUSRAT DDSSALVADORW 296.35 MO DEPRESSIVE RECURRENT IN PART OR UNSPECIFIED REMISSION 06/10/2014 SILVERIO DDS, JOSE 300.02 AN GEN ANXIETY 06/10/2014 [facility], DEMOND R 296.35 MO DEPRESSIVE RECURRENT IN PART OR UNSPECIFIED REMISSION 06/10/2014 [facility], DEMOND R 300.02 AN GEN ANXIETY 06/10/2014 [facility], DEMOND R 296.35 MO DEPRESSIVE RECURRENT IN PART OR UNSPECIFIED REMISSION 06/10/2014 [facility], DEMOND R 300.02 AN GEN ANXIETY 06/10/2014 ROEL RN EMERGENCY, GODWIN 296.35 MO DEPRESSIVE RECURRENT IN PART OR UNSPECIFIED REMISSION 06/10/2014 ROEL RN EMERGENCY, GODWIN 300.02 AN GEN ANXIETY 06/10/2014 NICOLA MANUEL DO K 296.35 MO DEPRESSIVE RECURRENT IN PART OR UNSPECIFIED REMISSION 06/10/2014 MANUEL DONICOLA K 300.02 AN GEN ANXIETY 06/10/2014 ROEL RN EMERGENCY, GODWIN 296.35 MO DEPRESSIVE RECURRENT IN PART OR UNSPECIFIED REMISSION 06/10/2014 ROEL RN EMERGENCY, GODWIN 300.02 AN GEN ANXIETY 06/10/2014 ROEL RN EMERGENCY, GODWIN 296.35 MO DEPRESSIVE RECURRENT IN PART OR UNSPECIFIED REMISSION 06/10/2014 ROEL RN EMERGENCY, GODWIN 300.02 AN GEN ANXIETY 07/04/2014 MADL TAQUERIA, FLO L 782.7 SPONTANEOUS ECCHYMOSES 07/04/2014 ROEL RN EMERGENCY, GODWIN 782.7 SPONTANEOUS ECCHYMOSES 07/04/2014 ROEL RN EMERGENCY, GODWIN 782.7 SPONTANEOUS ECCHYMOSES 07/04/2014 MADL RN EMERGENCY, FLO L 782.7 SPONTANEOUS ECCHYMOSES 07/04/2014 MADL RN EMERGENCY, FLO L 782.7 SPONTANEOUS ECCHYMOSES 07/04/2014 ROEL RN EMERGENCY, GODWIN 782.7 SPONTANEOUS ECCHYMOSES 07/04/2014 SONNY MENG ELIAS A 782.7 SPONTANEOUS ECCHYMOSES 07/04/2014 [facility], DEMOND R 782.7 SPONTANEOUS ECCHYMOSES 07/04/2014 MADTima MENG, FLO L 782.7 SPONTANEOUS ECCHYMOSES 07/04/2014 JOSE SILVERIO DDS 782.7 SPONTANEOUS ECCHYMOSES 07/04/2014 [facility], DEMOND R 782.7 SPONTANEOUS ECCHYMOSES 07/04/2014 [facility], DEMOND R 782.7 SPONTANEOUS ECCHYMOSES 07/04/2014 ROEL RN EMERGENCY, GODWIN 782.7 SPONTANEOUS ECCHYMOSES 07/04/2014 NICOLA MANUEL DO K 782.7 SPONTANEOUS ECCHYMOSES 07/04/2014 ROEL RN EMERGENCY, GODWIN 782.7 SPONTANEOUS ECCHYMOSES 07/04/2014 ROEL RN EMERGENCY, GODWIN 782.7 SPONTANEOUS ECCHYMOSES 08/04/2014 ISMAEL SOL APRN Ot 724.5 BACKACHE NOS 08/04/2014 ISMAEL SOL APRN Ot E000.8 OTHER EXTERNAL CAUSE STATUS 08/04/2014 ISMAEL SOL APRN Ot E849.6 ACCIDENT IN PUBLIC BLDG 08/04/2014 ISMAEL SOL APRN Ot E885.9 FALL FROM SLIPPING, TRIPPING, OR STUMBLI 09/16/2014 MADL RN EMERGENCY, FLO L 783.21 LOSS OF WEIGHT 09/16/2014 MADL RN EMERGENCY, FLO L 789.00 ABDOMINAL PAIN UNSPECIFIED SITE 09/16/2014 MADL RN EMERGENCY, LFO L 789.01 ABDOMINAL PAIN RIGHT UPPER QUADRANT 09/16/2014 MADL RN EMERGENCY, FLO L 789.06 ABDOMINAL PAIN EPIGASTRIC 09/16/2014 MADL RN EMERGENCY, FLO L 783.21 LOSS OF WEIGHT 09/16/2014 MADL RN EMERGENCY, FLO L 789.00 ABDOMINAL PAIN UNSPECIFIED SITE 09/16/2014 MADL RN EMERGENCY, FLO L 789.01 ABDOMINAL PAIN RIGHT UPPER QUADRANT 09/16/2014 MADL RN EMERGENCY, FLO L 789.06 ABDOMINAL PAIN EPIGASTRIC 09/16/2014 ROEL RN EMERGENCY, GODWIN 783.21 LOSS OF WEIGHT 09/16/2014 ROEL RN EMERGENCY, GODWIN 789.00 ABDOMINAL PAIN UNSPECIFIED SITE 09/16/2014 ROEL RN EMERGENCY, GODWIN 789.01 ABDOMINAL PAIN RIGHT UPPER QUADRANT 09/16/2014 ROEL RN EMERGENCY, GODWIN 789.06 ABDOMINAL PAIN EPIGASTRIC 09/16/2014 SONNY RN EMERGENCY, ELIAS A 783.21 LOSS OF WEIGHT 09/16/2014 SONNY APRN, ELIAS A 789.00 ABDOMINAL PAIN UNSPECIFIED SITE 09/16/2014 SONNY APRN, ELIAS A 789.01 ABDOMINAL PAIN RIGHT UPPER QUADRANT 09/16/2014 SONNY APRN, ELIAS A 789.06 ABDOMINAL PAIN EPIGASTRIC 09/16/2014 [facility] LOSS [facility] WEIGHT 09/16/2014 ANGELA [facility], DEMOND R 789.00 ABDOMINAL PAIN UNSPECIFIED SITE 09/16/2014 ANGELA LSCS, DEMOND R 789.01 ABDOMINAL PAIN RIGHT UPPER QUADRANT 09/16/2014 ANGELA LSCS, DEMOND R 789.06 ABDOMINAL PAIN EPIGASTRIC 09/16/2014 MADL RN EMERGENCY, FLO L 783.21 LOSS OF WEIGHT 09/16/2014 MADL RN EMERGENCY, FLO L 789.00 ABDOMINAL PAIN UNSPECIFIED SITE 09/16/2014 MADL RN EMERGENCY, FLO L 789.01 ABDOMINAL PAIN RIGHT UPPER QUADRANT 09/16/2014 MADL RN EMERGENCY, FLO L 789.06 ABDOMINAL PAIN EPIGASTRIC 09/16/2014 SILVERIO DDS, JOSE 783.21 LOSS OF WEIGHT 09/16/2014 SILVERIO DDS, JOSE 789.00 ABDOMINAL PAIN UNSPECIFIED SITE 09/16/2014 SILVERIO DDS, JOSE 789.01 ABDOMINAL PAIN RIGHT UPPER QUADRANT 09/16/2014 SILVERIO DDS, JOSE 789.06 ABDOMINAL PAIN EPIGASTRIC 09/16/2014 ANGELA LSCS, DEMOND R 783.21 LOSS OF WEIGHT 09/16/2014 ANGELA LSCS, DEMOND R 789.00 ABDOMINAL PAIN UNSPECIFIED SITE 09/16/2014 ANGELA LSCS, DEMOND R 789.01 ABDOMINAL PAIN RIGHT UPPER QUADRANT 09/16/2014 ANGELA LSCS, DEMOND R 789.06 ABDOMINAL PAIN EPIGASTRIC 09/16/2014 ANGELA LSCS, DEMOND R 783.21 LOSS OF WEIGHT 09/16/2014 ANGELA LSCS, DEMOND R 789.00 ABDOMINAL PAIN UNSPECIFIED SITE 09/16/2014 ANGELA LSCS, DEMOND R 789.01 ABDOMINAL PAIN RIGHT UPPER QUADRANT 09/16/2014 ANGELA LSCS, DEMOND R 789.06 ABDOMINAL PAIN EPIGASTRIC 09/16/2014 ROEL RN EMERGENCY, GODWIN 783.21 LOSS OF WEIGHT 09/16/2014 ROEL RN EMERGENCY, GODWIN 789.00 ABDOMINAL PAIN UNSPECIFIED SITE 09/16/2014 ROEL RN EMERGENCY, GODWIN 789.01 ABDOMINAL PAIN RIGHT UPPER QUADRANT 09/16/2014 ROEL RN EMERGENCY, GODWIN 789.06 ABDOMINAL PAIN EPIGASTRIC 09/16/2014 MANUEL DO, NICOLA K 783.21 LOSS OF WEIGHT 09/16/2014 MARAL MANUEL DOA K 789.00 ABDOMINAL PAIN UNSPECIFIED SITE 09/16/2014 NICOLA MANUEL DO K 789.01 ABDOMINAL PAIN RIGHT UPPER QUADRANT 09/16/2014 MARAL MANUEL DOA K 789.06 ABDOMINAL PAIN EPIGASTRIC 09/16/2014 ROEL RN EMERGENCY, GODWIN 783.21 LOSS OF WEIGHT 09/16/2014 ROEL RN EMERGENCY, GODWIN 789.00 ABDOMINAL PAIN UNSPECIFIED SITE 09/16/2014 ROEL RN EMERGENCY, GODWIN 789.01 ABDOMINAL PAIN RIGHT UPPER QUADRANT 09/16/2014 ROEL RN EMERGENCY, GODWIN 789.06 ABDOMINAL PAIN EPIGASTRIC 09/16/2014 ROEL RN EMERGENCY, GODWIN 783.21 LOSS OF WEIGHT 09/16/2014 ROEL RN EMERGENCY, GODWIN 789.00 ABDOMINAL PAIN UNSPECIFIED SITE 09/16/2014 ROEL RN EMERGENCY, GODWIN 789.01 ABDOMINAL PAIN RIGHT UPPER QUADRANT 09/16/2014 ROEL RN EMERGENCY, GODWIN 789.06 ABDOMINAL PAIN EPIGASTRIC 09/19/2014 SUNITA BERNAL Ot 521.00 UNSPEC DENTAL CARIES 09/19/2014 SUNITA BERNAL Ot 524.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2 LUMBAGO 09/25/2014 IDALIA JONES, JOSE Dickens Ot V57.1 PHYSICAL THERAPY NEC 10/17/2014 GODWIN SEVILLA APRN 312.30 I IMPULSE CONTROL DISORDER NOS 10/17/2014 MICHAEL SEVILLA APRNETTE V58.69 MEDICATION HIGH RISK 10/17/2014 ELIAS DENNIS APRN A 312.30 I IMPULSE CONTROL DISORDER NOS 10/17/2014 SONNY MENG ELIAS A V58.69 MEDICATION HIGH RISK 10/17[facility]2014 [facility] IMPULSE CONTROL DISORDER NOS 10/17/2014 [facility], DEMOND R V58.69 MEDICATION HIGH RISK 10/17/2014 FLO GONZALEZ APRN 312.30 I IMPULSE CONTROL DISORDER NOS 10/17/2014 FLO GONZALEZ APRN V58.69 MEDICATION HIGH RISK 10/17/2014 SILVERIO DDS, JOSE 312.30 I IMPULSE CONTROL DISORDER NOS 10/17/2014 SILVERIO DDS, JOSE V58.69 MEDICATION HIGH RISK 10/17/2014 [facility], DEMOND R 312.30 I IMPULSE CONTROL DISORDER NOS 10/17/2014 [facility], DEMOND R V58.69 MEDICATION HIGH RISK 10/17/2014 [facility], DEMOND R 312.30 I IMPULSE CONTROL DISORDER NOS 10/17/2014 [facility], DEMOND R V58.69 MEDICATION HIGH RISK 10/17/2014 ROEL RN EMERGENCY, GODWIN 312.30 I IMPULSE CONTROL DISORDER NOS 10/17/2014 ROEL RN EMERGENCY, GODWIN V58.69 MEDICATION HIGH RISK 10/17/2014 MANUEL DO NICOLA K 312.30 I IMPULSE CONTROL DISORDER NOS 10/17/2014 MANUEL DO NICOLA K V58.69 MEDICATION HIGH RISK 10/17/2014 ROEL RN EMERGENCY, GODWIN 312.30 I IMPULSE CONTROL DISORDER NOS 10/17/2014 ROEL RN EMERGENCY, GODWIN V58.69 MEDICATION HIGH RISK 10/17/2014 ROEL RN EMERGENCY, GODWIN 312.30 I IMPULSE CONTROL DISORDER NOS 10/17/2014 ROEL RN EMERGENCY, GODWIN V58.69 MEDICATION HIGH RISK 10/31/2014 [facility], DEMOND R 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 10/31/2014 MADL RN EMERGENCY, FLO L 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 10/31/2014 SILVERIO DDS, JOSE 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 10/31/2014 [facility], DEMOND R 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 10/31/2014 [facility], DEMOND R 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 10/31/2014 ROEL RN EMERGENCY, GODWIN 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 10/31/2014 MANUEL DO NICOLA K 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 10/31/2014 ROEL RN EMERGENCY, GODWIN 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 10/31/2014 ROEL RN EMERGENCY, GODWIN 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 11/10/2014 MADL RN EMERGENCY, FLO L 785.1 PALPITATIONS 11/10/2014 SILVERIO DDS, JOSE 785.1 PALPITATIONS 11/10/2014 [facility], DEMOND R 785.1 PALPITATIONS 11/10/2014 [facility], DEMOND R 785.1 PALPITATIONS 11/10/2014 ROELSAM MENG, GODWIN 785.1 PALPITATIONS 11/10/2014 MAR BLANTON NICOLA K 785.1 PALPITATIONS 11/10/2014 ROEL TAQUERIA, GODWIN 785.1 PALPITATIONS 11/10/2014 ROEL MENG GODWIN 785.1 PALPITATIONS 11/28/2014 FLO GONZALEZ HOSPICE REGISTERED NURSE Ot 785.1 11/28/2014 ISMAEL SOL RN EMERGENCY Ot 521.00 UNSPEC DENTAL CARIES 11/28/2014 ISMAEL SOL RN EMERGENCY Ot 525.9 DENTAL DISORDER NOS 12/09/2014 ISMAEL SOL RN EMERGENCY Ot 785.1 PALPITATIONS 12/18/2014 NICOLA MANUEL DO V15.82 NICOTINE ABUSE 12/18/2014 MICHAEL SEVILLA APRNETTE V15.82 NICOTINE ABUSE 12/18/2014 MICHAEL SEVILLA APRNETTE V15.82 NICOTINE ABUSE 01/01/2015 ROSITA GONZALEZA L HOSPICE REGISTERED NURSE Ot 785.1 01/21/2015 Ot 521.00 UNSPEC DENTAL CARIES 01/21/2015 Ot 523.10 CHRONIC GINGIVITIS, PLAQUE INDUCED 01/21/2015 Ot 525.9 DENTAL DISORDER NOS 01/23/2015 MICHAEL SEVILLA APRNETTE 296.64 MO BIPOLAR I MIXED W PSYCHOTIC BEHAVIOR 01/23/2015 ROEL MENG GODWIN 296.64 MO BIPOLAR I MIXED W PSYCHOTIC BEHAVIOR 02/25/2015 FLO GONZALEZ HOSPICE REGISTERED NURSE Ot 785.1 PALPITATIONS 05/18/2015 Ot 427.9 05/18/2015 EVITA JONES, WOLF Carmona Ot 596.59 05/18/2015 EVITA JONES, WOLF Carmona Ot 724.2 05/18/2015 EVITA JONES, WOLF Carmona Ot 729.5 05/18/2015 GERBER JONES, JENNIFER Altamirano Ot 240.9 05/18/2015 GERBER JONES, JENNIFER Altamirano Ot 789.01 05/18/2015 ROSITA GONZALEZA L HOSPICE REGISTERED NURSE Ot 724.2 05/18/2015 FLO GONZALEZ HOSPICE REGISTERED NURSE Ot 785.1 05/18/2015 Ot 427.9 05/18/2015 EVITA JONES, WOLF Carmona Ot 596.59 05/18/2015 EVITA JONES, WOLF Carmona Ot 724.2 05/18/2015 WOLF JAMA MD Ot 729.5 05/18/2015 JENNIFER MAYES MD Ot 240.9 05/18/2015 JENNIFER MAYES MD Ot 789.01 05/18/2015 MADLFLO HOSPICE REGISTERED NURSE Ot 724.2 05/18/2015 MADLROSITAA Tima HOSPICE REGISTERED NURSE Ot 785.1 05/18/2015 ISMAEL SOL RN EMERGENCY Ot 112.1 CANDIDAL VULVOVAGINITIS 05/18/2015 ISMAEL SOL RN EMERGENCY Ot 599.0 URIN TRACT INFECTION NOS 05/18/2015 ISMAEL SOL RN EMERGENCY Ot 789.09 ABDOMINAL PAIN, OTHER SPECIFIED SITE 05/18/2015 MADLFLO [facility]OSPICE REGISTERED NURSE Ot 724.2 08/26/2015 MADLROSITAA L HOSPICE REGISTERED NURSE Ot 785.1 08/26/2015 MIRANDA LOCO DO Ot N39.0 URINARY TRACT INFECTION, SITE NOT SPECIF 08/26/2015 MIRANDA LOCO DO Ot R10.11 RIGHT UPPER QUADRANT PAIN 08/31/2015 ISMAEL SOL RN EMERGENCY Ot F19.10 OTHER PSYCHOACTIVE SUBSTANCE ABUSE, UNCO 08/31/2015 ISMAEL SOL RN EMERGENCY Ot R56.9 UNSPECIFIED CONVULSIONS 10/10/2015 ISMAEL SOL RN EMERGENCY Ot F17.210 NICOTINE DEPENDENCE, CIGARETTES, UNCOMPL 10/10/2015 ISMAEL SOL RN EMERGENCY Ot F39 UNSPECIFIED MOOD [AFFECTIVE] DISORDER 10/10/2015 ISMAEL SOL RN EMERGENCY Ot N39.0 URINARY TRACT INFECTION, SITE NOT SPECIF 10/10/2015 ISMAEL SOL RN EMERGENCY Ot T88.7XXA UNSP ADVERSE EFFECT OF DRUG OR MEDICAMEN 11/04/2015 Ot 427.9 11/04/2015 EVITA JONES, WOLF Carmona Ot 596.59 11/04/2015 WOLF JAMA MD Ot 724.2 11/04/2015 WOLF JAMA MD Ot 729.5 11/04/2015 GERBER JONES, JENNIFER Altamirano Ot 240.9 11/04/2015 GERBER JONES, JENNIFER Altamirano Ot 789.01 11/04/2015 LISA, FLO L HOSPICE REGISTERED NURSE Ot 724.2 11/04/2015 MADL, FLO L HOSPICE REGISTERED NURSE Ot 785.1 11/19/2015 FELICIA RESTREPO RN EMERGENCY Ot Z87.42 01/02/2016 Ot 427.9 01/02/2016 EVITA JONES, WOLF Carmona Ot 596.59 01/02/2016 EVITA JONES, WOLF Carmona Ot 724.2 01/02/2016 EVITA JONES, WOLF Carmona Ot 729.5 01/02/2016 GERBER JONES, JENNIFER Altamirano Ot 240.9 01/02/2016 GERBER JONES, JENNIFER Altamirano Ot 789.01 01/02/2016 LISA, FLO L HOSPICE REGISTERED NURSE Ot 724.2 01/02/2016 MADL, FLO L HOSPICE REGISTERED NURSE Ot 785.1 01/02/2016 FELICIA RESTREPO APRN Ot Z87.42 01/02/2016 MIRANDA LOCO DO Ot F12.10 CANNABIS ABUSE, UNCOMPLICATED 01/02/2016 MIRANDA LOCO DO Ot F17.210 NICOTINE DEPENDENCE, CIGARETTES, UNCOMPL 01/02/2016 MIRANDA LOCO DO Ot K02.9 DENTAL CARIES, UNSPECIFIED 01/02/2016 MIRANDA LOCO DO Ot K04.7 PERIAPICAL ABSCESS WITHOUT SINUS 01/02/2016 Ot 427.9 01/02/2016 EVITA JONES, WOLF Carmona Ot 596.59 01/02/2016 EVITA JONES, WOLF Carmona Ot 724.2 01/02/2016 EVITA JONES, WOLF Carmona Ot 729.5 01/02/2016 GERBER JONES, JENNIFER Altamirano Ot 240.9 01/02/2016 GERBER JONES, JENNIFER Altamirano Ot 789.01 01/02/2016 LISA, FLO L HOSPICE REGISTERED NURSE Ot 724.2 01/02/2016 LISA, FLO L HOSPICE REGISTERED NURSE Ot 785.1 01/02/2016 FELICIA RESTREPO RN EMERGENCY Ot Z87.42 03/23/2016 Ot 427.9 CARDIAC DYSRHYTHMIA NOS 03/23/2016 WOLF JAMA MD Ot 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 03/23/2016 WOLF JAMA MD Ot 724.2 LUMBAGO 03/23/2016 WOLF JAMA MD Ot 729.5 PAIN IN LIMB 03/23/2016 JENNIFER MAYES MD Ot 240.9 GOITER NOS 03/23/2016 JENNIFER MAYES MD Ot 789.01 ABDOMINAL PAIN, RIGHT UPPER QUADRANT 03/23/2016 MADL, FLO L HOSPICE REGISTERED NURSE Ot 724.2 LUMBAGO 03/23/2016 MADL, FLO L HOSPICE REGISTERED NURSE Ot 785.1 PALPITATIONS 03/23/2016 FELICIA RESTREPO APRN Ot Z87.42 PERSONAL HISTORY OF OTH DISEASES OF THE 03/24/2016 Ot 427.9 CARDIAC DYSRHYTHMIA NOS 03/24/2016 WOLF JAMA MD Ot 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 03/24/2016 WOLF JAMA MD Ot 724.2 LUMBAGO 03/24/2016 WOLF JAMA MD Ot 729.5 PAIN IN LIMB 03/24/2016 JENNIFER MAYES MD Ot 240.9 GOITER NOS 03/24/2016 JENNIFER MAYES MD Ot 789.01 ABDOMINAL PAIN, RIGHT UPPER QUADRANT 03/24/2016 MADL, FLO L HOSPICE REGISTERED NURSE Ot 724.2 LUMBAGO 03/24/2016 MADL, FLO L HOSPICE REGISTERED NURSE Ot 785.1 PALPITATIONS 03/24/2016 FELICIA RESTREPO APRN Ot Z87.42 PERSONAL HISTORY OF OTH DISEASES OF THE 03/24/2016 CLAUDYMIRANDA Shepherd DO Ot F17.210 NICOTINE DEPENDENCE, CIGARETTES, UNCOMPL 03/24/2016 MIRANDA LOCO DO Ot K59.00 CONSTIPATION, UNSPECIFIED 03/24/2016 MIRANDA LOCO DO Ot N39.0 URINARY TRACT INFECTION, SITE NOT SPECIF 03/24/2016 MIRANDA LOCO DO Ot R41.0 DISORIENTATION, UNSPECIFIED 03/24/2016 MIRANDA LOCO DO Ot F17.210 NICOTINE DEPENDENCE, CIGARETTES, UNCOMPL 03/24/2016 MIRANDA LOCO DO Ot K59.00 CONSTIPATION, UNSPECIFIED 03/24/2016 MIRANDA LOCO DO Ot N39.0 URINARY TRACT INFECTION, SITE NOT SPECIF 03/24/2016 MIRANDA LOCO DO Ot R41.0 DISORIENTATION, UNSPECIFIED 06/29/2016 Ot 427.9 CARDIAC DYSRHYTHMIA NOS 06/29/2016 WOLF AJMA MD Ot 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 06/29/2016 WOLF JAMA MD Ot 724.2 LUMBAGO 06/29/2016 WOLF JAMA MD Ot 729.5 PAIN IN LIMB 06/29/2016 JENNIFER MAYES MD Ot 240.9 GOITER NOS 06/29/2016 JENNIFER MAYES MD Ot 789.01 ABDOMINAL PAIN, RIGHT UPPER QUADRANT 06/29/2016 MADL, FLO L HOSPICE REGISTERED NURSE Ot 724.2 LUMBAGO 06/29/2016 MADL, FLO L HOSPICE REGISTERED NURSE Ot 785.1 PALPITATIONS 06/29/2016 FELICIA RESTREPO RN EMERGENCY Ot Z87.42 PERSONAL HISTORY OF OTH DISEASES OF THE 06/29/2016 REZA CORONADO MD Ot F17.210 NICOTINE DEPENDENCE, CIGARETTES, UNCOMPL 06/29/2016 REZA CORONADO MD Ot N76.0 ACUTE VAGINITIS 06/29/2016 REZA CORONADO MD Ot O20.0 THREATENED 06/29/2016 REZA CORONADO MD Ot Z3A.15 15 WEEKS GESTATION OF 06/30/2016 REZA CORONADO MD Ot F17.210 NICOTINE DEPENDENCE, CIGARETTES, UNCOMPL 06/30/2016 REZA CORONADO MD Ot N76.0 ACUTE VAGINITIS 06/30/2016 REZA CORONADO MD Ot O20.0 THREATENED 06/30/2016 REZA CORONADO MD Ot Z3A.15 15 WEEKS GESTATION OF 07/22/2016 SUNITA BERNAL Ot F32.9 MAJOR DEPRESSIVE DISORDER, SINGLE EPISOD 07/22/2016 SUNITA BERNAL Ot F41.9 ANXIETY DISORDER, UNSPECIFIED 07/22/2016 SUNITA BERNAL L Ot I47.1 SUPRAVENTRICULAR TACHYCARDIA 07/22/2016 SUNITA BERNAL Ot O23.42 UNSP INFCT OF URINARY TRACT IN 07/22/2016 SUNITA BERNAL L Ot O99.332 SMOKING (TOBACCO) COMPLICATING 07/22/2016 SUNITA BERNAL L Ot R10.31 RIGHT LOWER QUADRANT PAIN 07/22/2016 SUNITA BERNAL Ot Z3A.18 18 WEEKS GESTATION OF 07/22/2016 SUNITA BERNAL L Ot Z79.899 OTHER SKILLED NURSING (CURRENT) DRUG THERAPY 07/25/2016 SUNITA BERNAL Ot F32.9 MAJOR DEPRESSIVE DISORDER, SINGLE EPISOD 07/25/2016 SUNITA BERNAL Ot F41.9 ANXIETY DISORDER, UNSPECIFIED 07/25/2016 SUNITA BERNAL Ot I47.1 SUPRAVENTRICULAR TACHYCARDIA 07/25/2016 SUNITA BERNAL Ot O23.42 UNSP INFCT OF URINARY TRACT IN 07/25/2016 SUNITA BERNAL Ot O99.332 SMOKING (TOBACCO) COMPLICATING 07/25/2016 SUNITA BERNAL Ot R10.31 RIGHT LOWER QUADRANT PAIN 07/25/2016 SUNITA BERNAL Ot Z79.899 OTHER MANAGER INTERFACE (CURRENT) DRUG THERAPY 07/25/2016 SUNITA BERNAL Ot F32.9 MAJOR DEPRESSIVE DISORDER, SINGLE EPISOD 07/25/2016 SUNITA BERNAL Ot F41.9 ANXIETY DISORDER, UNSPECIFIED 07/25/2016 SUNITA BERNAL Ot I47.1 SUPRAVENTRICULAR TACHYCARDIA 07/25/2016 SUNITA BERNAL Ot O23.42 UNSP INFCT OF URINARY TRACT IN 07/25/2016 SUNITA BERNAL Ot O99.332 SMOKING (TOBACCO) COMPLICATING 07/25/2016 SUNITA BERNAL L Ot R10.31 RIGHT LOWER QUADRANT PAIN 07/25/2016 SUNITA BERNAL Ot Z79.899 OTHER SKILLED NURSING (CURRENT) DRUG THERAPY 07/25/2016 SUNITA BERNAL Ot F32.9 MAJOR DEPRESSIVE DISORDER, SINGLE EPISOD 07/25/2016 SUNITA BERNAL Ot F41.9 ANXIETY DISORDER, UNSPECIFIED 07/25/2016 SUNITA BERNAL Ot I47.1 SUPRAVENTRICULAR TACHYCARDIA 07/25/2016 SUNITA BERNAL Ot O23.42 UNSP INFCT OF URINARY TRACT IN 07/25/2016 SUNITA BERNAL Ot O99.332 SMOKING (TOBACCO) COMPLICATING 07/25/2016 SUNITA BERNAL Ot R10.31 RIGHT LOWER QUADRANT PAIN 07/25/2016 SUNITA BERNAL Ot Z3A.18 18 WEEKS GESTATION OF 07/25/2016 SUNITA BERNAL Ot Z79.899 OTHER MANAGER INTERFACE (CURRENT) DRUG THERAPY 09/14/2016 JENNIFER MAYES MD, Ot O47.02 FALSE LABOR BEFORE 37 COMPLETED WEEKS OF 09/14/2016 JENNIFER MAYES MD, Ot Z3A.26 26 WEEKS GESTATION OF 09/16/2016 JENNIFER MAYES MD, Ot O47.02 FALSE LABOR BEFORE 37 COMPLETED WEEKS OF 09/16/2016 JENNIFER MAYES MD, Ot Z3A.26 26 WEEKS GESTATION OF 10/07/2016 JENNIFER MAYES MD Ot O36.0930 MATERNAL CARE FOR OTH RHESUS ISOIMMUN, T 10/07/2016 JENNIFER MAYES MD Ot Z23 ENCOUNTER FOR IMMUNIZATION 10/07/2016 JENNIFER MAYES MD, Ot Z3A.00 WEEKS OF GESTATION OF NOT SPEC 10/20/2016 JENNIFER MAYES MD, Ot O36.0930 MATERNAL CARE FOR OTH RHESUS ISOIMMUN, T 10/20/2016 JENNIFER MAYES MD, Ot Z23 ENCOUNTER FOR IMMUNIZATION 10/20/2016 JENNIFER MAYES MD, Ot Z3A.00 WEEKS OF GESTATION OF NOT SPEC 11/08/2016 JENNIFER MAYES MD, Ot O47.03 FALSE LABOR BEFORE 37 COMPLETED WEEKS OF 11/08/2016 JENNIFER MAYES MD, Ot Z3A.34 34 WEEKS GESTATION OF 11/10/2016 JENNIFER MAYES MD, Ot O47.03 FALSE LABOR BEFORE 37 COMPLETED WEEKS OF 11/10/2016 JENNIFER MAYES MD, Ot Z3A.34 34 WEEKS GESTATION OF 11/14/2016 JENNIFER MAYES MD, Ot O47.03 FALSE LABOR BEFORE 37 COMPLETED WEEKS OF 11/14/2016 JENNIFER MAYES MD, Ot Z3A.34 34 WEEKS GESTATION OF 11/26/2016 JENNIFER MAYES MD, Ot O47.03 FALSE LABOR BEFORE 37 COMPLETED WEEKS OF 11/26/2016 JENNIFER MAYES MD, Ot Z3A.36 36 WEEKS GESTATION OF 12/01/2016 JENNIFER MAYES MD, Ot O47.03 FALSE LABOR BEFORE 37 COMPLETED WEEKS OF 12/01/2016 JENNIFER MAYES MD, Ot3A.36 36 WEEKS GESTATION OF 12/01/2016 JENNIFER MAYES MD, Ot O47.03 FALSE LABOR BEFORE 37 COMPLETED WEEKS OF 12/01/2016 JENNIFER MAYES MD, Ot3A.36 36 WEEKS GESTATION OF 12/01/2016 JENNIFER MAYES MD, Ot F41.9 ANXIETY DISORDER, UNSPECIFIED 12/01/2016 JENNIFER MAYES MD, Ot O69.2XX0 LABOR AND DEL COMP BY OT CORD ENTANGLE, 12/01/2016 JENNIFER MAYES MD, Ot O76 ABNLT IN HEART RATE AND RHYTHM COM 12/01/2016 JENNIFER MAYES MD, Ot O99.343 OT MENTAL DISORDERS COMPLICATING PREGNA 12/01/2016 JENNIFER MAYES MD, Ot Z23 ENCOUNTER FOR IMMUNIZATION 12/01/2016 JENNIFER MAYES MD, Ot Z37.0 SINGLE LIVE 12/01/2016 JENNIFER MAYES MD, Ot Z3A.37 37 WEEKS GESTATION OF 12/02/2016 SUNITA BERNAL Ot E86.9 VOLUME DEPLETION, UNSPECIFIED 12/02/2016 SUNITA BERNAL Ot F17.210 NICOTINE DEPENDENCE, CIGARETTES, UNCOMPL 12/02/2016 SUNITA BERNAL Ot K02.9 DENTAL CARIES, UNSPECIFIED 12/02/2016 SUNITA BERNAL Ot O99.89 OTH DISEASES AND CONDITIONS COMPL PREG/ C 12/02/2016 SUNITA BERNAL Ot R00.2 PALPITATIONS 12/02/2016 SUNITA BERNAL Ot Z72.820 SLEEP DEPRIVATION 12/05/2016 SUNITA BERNAL Ot E86.9 VOLUME DEPLETION, UNSPECIFIED 12/05/2016 SUNITA BERNAL Ot F17.210 NICOTINE DEPENDENCE, CIGARETTES, UNCOMPL 12/05/2016 SUNITA BERNAL Ot K02.9 DENTAL CARIES, UNSPECIFIED 12/05/2016 SUNITA BERNAL Ot O99.89 OTH DISEASES AND CONDITIONS COMPL PREG/ C 12/05/2016 SUNITA BERNAL Ot R00.2 PALPITATIONS 12/05/2016 SUNITA BERNAL Ot Z72.820 SLEEP DEPRIVATION 12/05/2016 SUNITA BERNAL Ot E86.9 VOLUME DEPLETION, UNSPECIFIED 12/05/2016 SUNITA BERNAL Ot F17.210 NICOTINE DEPENDENCE, CIGARETTES, UNCOMPL 12/05/2016 SUNITA BERNAL Ot K02.9 DENTAL CARIES, UNSPECIFIED 12/05/2016 SUNITA BERNAL Ot O99.89 OTH DISEASES AND CONDITIONS COMPL PREG/ C 12/05/2016 SUNITA BERNAL Ot R00.2 PALPITATIONS 12/05/2016 SUNITA BERNAL Ot Z72.820 SLEEP DEPRIVATION 12/09/2016 SUNITA BERNAL Ot E86.9 VOLUME DEPLETION, UNSPECIFIED 12/09/2016 SUNITA BERNAL Ot F17.210 NICOTINE DEPENDENCE, CIGARETTES, UNCOMPL 12/09/2016 SUNITA BERNAL Ot K02.9 DENTAL CARIES, UNSPECIFIED 12/09/2016 SUNITA BERNAL Ot O99.89 OTH DISEASES AND CONDITIONS COMPL PREG/ C 12/09/2016 SUNITA BERNAL Ot R00.2 PALPITATIONS 12/09/2016 SUNITA BERNAL Ot Z72.820 SLEEP DEPRIVATION 12/16/2016 DONNELL JONES, CALVIN Kiser Ot F17.210 NICOTINE DEPENDENCE, CIGARETTES, UNCOMPL 12/16/2016 DONNELL JONES, CALVIN Kiser Ot R11.2 NAUSEA WITH VOMITING, UNSPECIFIED 12/16/2016 CALVIN JACOBO MD Ot R42 DIZZINESS AND GIDDINESS 12/16/2016 CALVIN JACOBO MD Ot R53.83 OTHER FATIGUE 12/18/2016 CALVIN JACOBO MD Ot F17.210 NICOTINE DEPENDENCE, CIGARETTES, UNCOMPL 12/18/2016 CALVIN JACOBO MD Ot R11.2 NAUSEA WITH VOMITING, UNSPECIFIED 12/18/2016 CALVIN JACOBO MD Ot R42 DIZZINESS AND GIDDINESS 12/18/2016 CALVIN JACOBO MD Ot R53.83 OTHER FATIGUE 01/04/2017 JENNIFER MAYES MD, Ot D64.9 ANEMIA, UNSPECIFIED 01/04/2017 JENNIFER MAYES MD, Ot N80.9 ENDOMETRIOSIS, UNSPECIFIED 01/04/2017 JENNIFER MAYES MD Ot N93.8 OTHER SPECIFIED ABNORMAL UTERINE AND VAG 01/04/2017 JENNIFER MAYES MD Ot R10.2 PELVIC AND PERINEAL PAIN 01/04/2017 JENNIFER MAYES MD Ot Z01.818 ENCOUNTER FOR OTHER PREPROCEDURAL EXAMIN 01/04/2017 JENNIFER MAYES MD Ot Z11.2 ENCOUNTER FOR SCREENING FOR OTHER BACTER 01/05/2017 JENNIFER MAYES MD, Ot D64.9 ANEMIA, UNSPECIFIED 01/05/2017 JENNIFER MAYES MD Ot N80.9 ENDOMETRIOSIS, UNSPECIFIED 01/05/2017 JENNIFER MAYES MD Ot N93.8 OTHER SPECIFIED ABNORMAL UTERINE AND VAG 01/05/2017 JENNIFER MAYES MD Ot R10.2 PELVIC AND PERINEAL PAIN 01/05/2017 JENNIFER MAYES MD Ot Z01.818 ENCOUNTER FOR OTHER PREPROCEDURAL EXAMIN 01/05/2017 JENNIFER MAYES MD Ot Z11.2 ENCOUNTER FOR SCREENING FOR OTHER BACTER 01/05/2017 JENNIFER MAYES MD, Ot D64.9 ANEMIA, UNSPECIFIED 01/05/2017 JENNIFER MAYES MD, Ot N80.9 ENDOMETRIOSIS, UNSPECIFIED 01/05/2017 JENNIFER MAYES MD, Ot N93.8 OTHER SPECIFIED ABNORMAL UTERINE AND VAG 01/05/2017 JENNIFER MAYES MD, Ot R10.2 PELVIC AND PERINEAL PAIN 01/05/2017 JENNIFER MAYES MD, Ot Z01.818 ENCOUNTER FOR OTHER PREPROCEDURAL EXAMIN 01/05/2017 JENNIFER MAYES MD, Ot Z11.2 ENCOUNTER FOR SCREENING FOR OTHER BACTER 01/10/2017 JENNIFER MAYES MD, Ot N70.01 ACUTE SALPINGITIS 01/10/2017 JENNIFER MAYES MD, Ot N72 INFLAMMATORY DISEASE OF CERVIX UTERI 01/10/2017 JENNIFER MAYES MD, Ot N80.0 ENDOMETRIOSIS OF UTERUS 01/10/2017 JENNIFER MAYES MD, Ot N80.1 ENDOMETRIOSIS OF OVARY 01/10/2017 JENNIFER MAYES MD, Ot 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 01/10/2017 JENNIFER MAYES MD, Ot N80.3 ENDOMETRIOSIS OF PELVIC PERITONEUM 01/10/2017 JENNIFER MAYES MD, Ot N83.01 FOLLICULAR CYST OF RIGHT OVARY 01/10/2017 JENNIFER MAYES MD, Ot N83.02 FOLLICULAR CYST OF LEFT OVARY 01/12/2017 JENNIFER MAYES MD, Ot N70.01 ACUTE SALPINGITIS 01/12/2017 JENNIFER MAYES MD, Ot N72 INFLAMMATORY DISEASE OF CERVIX UTERI 01/12/2017 JENNIFER MAYES MD, Ot N80.0 ENDOMETRIOSIS OF UTERUS 01/12/2017 JENNIFER MAYES MD, Ot N80.1 ENDOMETRIOSIS OF OVARY 01/12/2017 JENNIFER MAYES MD, Ot 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 01/12/2017 JENNIFER MAYES MD, Ot N80.3 ENDOMETRIOSIS OF PELVIC PERITONEUM 01/12/2017 JENNIFER MAYES MD, Ot N83.01 FOLLICULAR CYST OF RIGHT OVARY 01/12/2017 JENNIFER MAYES MD, Ot N83.02 FOLLICULAR CYST OF LEFT OVARY 01/15/2017 JENNIFER MAYES MD, Ot N70.01 ACUTE SALPINGITIS 01/15/2017 JENNIFER MAYES MD Ot N72 INFLAMMATORY DISEASE OF CERVIX UTERI 01/15/2017 JENNIFER MAYES MD, Ot N80.0 ENDOMETRIOSIS OF UTERUS 01/15/2017 JENNIFER MAYES MD, Ot N80.1 ENDOMETRIOSIS OF OVARY 01/15/2017 JENNIFER MAYES MD, Ot 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 01/15/2017 JENNIFER MAYES MD, Ot N80.3 ENDOMETRIOSIS OF PELVIC PERITONEUM 01/15/2017 JENNIFER MAYES MD, Ot N83.01 FOLLICULAR CYST OF RIGHT OVARY 01/15/2017 JENNIFER MAYES MD, Ot N83.02 FOLLICULAR CYST OF LEFT OVARY Procedures Code Description [place] [address] ROUTINE VENIPUNCTURE 09/28/2012 76340 CBC 09/28/2012 96254 CRP 09/29/2012 72988 URINE TEST (IN-HOUSE) 11/29/2012 17521 URINE TEST (IN-HOUSE) 01/16/2013 09548 TRICHOMONAS (IN-HOUSE) 01/16/2013 50979 GC/CHLAM PROBE (STATE) 01/17/2013 86637 PAP SMEAR 2012 Q0091 PAP SMEAR OBTAIN SMEAR 01/17/2013 37131 CULTURE UROGENITAL 01/19/2013 81672 URINE TEST (IN-HOUSE) 02/13/2013 62209 URINE TEST (IN-HOUSE) 04/02/2013 84791 XRAY CERVICAL SPINE, 2 OR 3 VIEWS 04/02/2013 93661 XRAY LUMBAR SPINE 2 OR 3 VIEWS 04/02/2013 92159 MRI SPINE (LUMBAR) W/O CONTRAST 05/17/2013 96091 TB TEST INTRADERMAL 06/22/2013 69950 URINE TEST (IN-HOUSE) 08/01/2013 11938 UA LONG DIP 09/11 7386191 GFR CALC (RESULT ONLY) 09/16/2013 64014 CREATININE 2012 15496 URINE PROTEIN 24 HOUR 09/16/2013 [id number] URINE CREATININE CLEARANCE 24 09/16/2013 73.6 03/22/2014 80714 ROUTINE VENIPUNCTURE 07/04/2014 00396 MRI SPINE (LUMBAR) W/O CONTRAST 07/04/2014 45455 CMP 07/04/2014 52243 CBC 07/04/2014 99225 ROUTINE VENIPUNCTURE 09/16/2014 49336 US ABDOMINAL ULTRASOUND, COMPLETE 09/16/2014 33478 VITAMIN D 25-HYDROXY (D2,D3, TOTAL) 09/16/2014 51984 VIT B 12 2013 12125 TSH 09/16/2014 97452 H PYLORI (IN-HOUSE) 09/16/2014 71852 CBC 09/16/2014 0942574 GFR CALC (RESULT ONLY) 09/16/2014 56283 CMP 09/16/2014 72828 UA W/ CULTURE IF INDICATED 10/29/2014 84236 GC/CHLAM URINE (STATE) 10/29/2014 02055 PSYCH DIAGNOSTIC EVALUATION 10/31/2014 67158 ROUTINE VENIPUNCTURE 11/10/2014 48607 XRAY CHEST 2 VIEW 11/10/2014 85128 CMP 11/10/2014 41835 MAGNESIUM 2013 46925 CBC 11/10/2014 42287 EKG, TRACING (IN-HOUSE) 11/10/2014 62254 HOLTER MONITOR (OUTPATIENT) 11/10/2014 CARDIOLOG [facility] 11/10/2014 86153 PSYTX PT&/FAMILY 45 MINUTES 11/26/2014 [id number] DIVISION OF FEMALE PERINEUM, EXTERNAL AP 11/29/2016 [id number] DELIVERY OF PRODUCTS OF CONCEPTION, EXTE 11/29/2016 Results Test Result Range Complete blood count (CBC) with automated white blood cell (WBC) differential - 06/29/16 15:30 Blood leukocytes automated count (number/volume) 11.4 10*3/ uL 4.3-11.0 Blood erythrocytes automated count (number/volume) 4.46 10*6 /uL 4.35-5.85 Venous blood hemoglobin measurement (mass/volume) 13.4 g/dL 11.5-16.0 Blood hematocrit (volume fraction) 38 % 35-52 Automated erythrocyte mean corpuscular volume 85 [foz_us] 80-99 Automated erythrocyte mean corpuscular hemoglobin (mass per erythrocyte) 30 pg 25-34 Automated erythrocyte mean corpuscular hemoglobin concentration measurement ( mass/volume) 35 g/dL 32-36 Automated erythrocyte distribution width ratio 13.4 % 10.0-14.5 Automated blood platelet count (count/volume) 207 10*3/uL 130-400 Automated blood platelet mean volume measurement 11.1 [foz_ us] 7.4-10.4 Automated blood neutrophils/100 leukocytes 74 % 42-75 Automated blood lymphocytes/100 leukocytes 18 % 12-44 Blood monocytes/100 leukocytes 7 % 0-12 Automated blood eosinophils/100 leukocytes 1 % 0-10 Automated blood basophils/100 leukocytes 0 % 0-10 Blood neutrophils automated count (number/volume) 8.5 10*3 1.8-7.8 Blood lymphocytes automated count (number/volume) 2.0 10*3 1.0-4.0 Blood monocytes automated count (number/volume) 0.8 10*3 0.0-1.0 Automated eosinophil count 0.1 10*3/uL 0.0-0.3 Automated blood basophil count (count/volume) 0.0 10*3/uL 0.0-0.1 RH IMMUNE GLOBULIN RHOPHYLAC - 06/29/16 15:40 RH IMMUNE GLOBULIN RHOPHYLAC PRSMD TRFSD 06/29/16 1556 NRG [id number] - 06/29/16 15:40 [id number] 300ug NRG Lot number - 06/29/16 15:40 Lot number [id number] NRG cell screen - 06/29/16 15:40 cell screen 08/04/18 NRG Complete urinalysis with reflex to culture - 06/29/16 16:25 Urine color determination YELLOW NRG Urine clarity determination SLIGHTLY CLOUDY NRG Urine pH measurement by test strip 7 5- 9 Specific gravity of urine by test strip 1.015 1.016-1.022 Urine protein assay by test strip, semi-quantitative 1+ NEGATIVE Urine glucose detection by automated test strip NEGATIVE NEGATIVE Erythrocytes detection in urine sediment by light microscopy 3+ NEGATIVE Urine ketones detection by automated test strip 3+ NEGATIVE Urine nitrite detection by test strip NEGATIVE NEGATIVE Urine total bilirubin detection by test strip NEGATIVE NEGATIVE Urine urobilinogen measurement by automated test strip (mass/volume) NORMAL NORMAL Urine leukocyte esterase detection by dipstick 1+ NEGATIVE Automated urine sediment erythrocyte count by microscopy (number/high power field) NONE NRG Automated urine sediment leukocyte count by microscopy (number/high power field ) [HPF] NRG Bacteria detection in urine sediment by light microscopy FEW NRG Squamous epithelial cells detection in urine sediment by light microscopy 0-2 NRG Crystals detection in urine sediment by light microscopy NONE NRG Casts detection in urine sediment by light microscopy NONE NRG Mucus detection in urine sediment by light microscopy NEGATIVE NRG Complete urinalysis with reflex to culture YES NRG Amorphous sediment detection in urine sediment by light microscopy MOD [place] URATES NRG Bacterial urine culture - 06/29/16 16:25 Bacterial urine culture [id number] NRG COLONY COUNT >100,000/ML NRG FTX;REPORTABLE SENSITIVITY REPORTED 07/01/16 7:50 NRG Bacterial susceptibility panel - 06/29/16 16:25 Gentamicin susceptibility test by minimum inhibitory concentration <= NRG Trimethoprim/sulfamethoxazole susceptibility test by minimum inhibitoryconcentration <= NRG Ampicillin susceptibility test by minimum inhibitory concentration 4 NRG Tobramycin susceptibility test by minimum inhibitory concentration <= NRG Cefazolin susceptibility test by minimum inhibitory concentration <= NRG Ceftriaxone susceptibility test by minimum inhibitory concentration <= NRG Ampicillin/sulbactam susceptibility test by minimum inhibitory concentration 4 NRG Piperacillin/tazobactam susceptibility test by minimum inhibitory concentration <= NRG Ciprofloxacin susceptibility test by minimum inhibitory concentration <= NRG Meropenem susceptibility test by minimum inhibitory concentration <= NRG Nitrofurantoin susceptibility test by minimum inhibitory concentration <= NRG Aztreonam susceptibility test by minimum inhibitory concentration <= NRG Extended spectrum beta lactamase (ESBL) producing bacteria susceptibility test by minimum inhibitory concentration - NRG Bacteria identification in genital specimen by aerobe culture - 06/29/16 16:55 FREE TEXT EXTERNAL PLUS NORMAL FLASH NRG QUANTITY OF GROWTH Moderate Growth NRG Bacteria identification in genital specimen by aerobe culture [id number] NRG Microscopic examination by wet preparation - 06/29/16 16:55 WET PREP RESULTS NO YEAST OBSERVED NRG Neisseria gonorrhoeae DNA detection by probe and signal amplification method - 06/29/16 16:55 Gonorrhea amp DNA-urine Negative Negative Chlamydia trachomatis DNA detection by probe and signal amplification method - 06/29/16 16:55 Chlamydia trachomatis DNA detection by probe and target amplification method Negative Negative Complete urinalysis with reflex to culture - 07/22/16 18:23 Urine color determination YELLOW NRG Urine clarity determination SLIGHTLY CLOUDY NRG Urine pH measurement by test strip 6 5- 9 Specific gravity of urine by test strip 1.015 1.016-1.022 Urine protein assay by test strip, semi-quantitative 3+ NEGATIVE Urine glucose detection by automated test strip NEGATIVE NEGATIVE Erythrocytes detection in urine sediment by light microscopy 3+ NEGATIVE Urine ketones detection by automated test strip 2+ NEGATIVE Urine nitrite detection by test strip POSITIVE NEGATIVE Urine total bilirubin detection by test strip NEGATIVE NEGATIVE Urine urobilinogen measurement by automated test strip (mass/volume) NORMAL NORMAL Urine leukocyte esterase detection by dipstick 3+ NEGATIVE Automated urine sediment erythrocyte count by microscopy (number/high power field) [HPF] NRG Automated urine sediment leukocyte count by microscopy (number/high power field ) TNTC NRG Bacteria detection in urine sediment by light microscopy LARGE NRG Squamous epithelial cells detection in urine sediment by light microscopy 0-2 NRG Crystals detection in urine sediment by light microscopy NONE NRG Casts detection in urine sediment by light microscopy NONE NRG Mucus detection in urine sediment by light microscopy NEGATIVE NRG Complete urinalysis with reflex to culture YES NRG Bacterial urine culture - 07/22/16 18:23 Bacterial urine culture [id number] NRG COLONY COUNT >100,000/ML NRG FTX;REPORTABLE SENSITIVITY REPORTED AT 1738, 07-23-16 NRG Bacterial susceptibility panel - 07/22/16 18:23 Gentamicin susceptibility test by minimum inhibitory concentration <= NRG Trimethoprim/sulfamethoxazole susceptibility test by minimum inhibitoryconcentration <= NRG Ampicillin susceptibility test by minimum inhibitory concentration 8 NRG Tobramycin susceptibility test by minimum inhibitory concentration <= NRG Cefazolin susceptibility test by minimum inhibitory concentration <= NRG Ceftriaxone susceptibility test by minimum inhibitory concentration <= NRG Ampicillin/sulbactam susceptibility test by minimum inhibitory concentration 4 NRG Piperacillin/tazobactam susceptibility test by minimum inhibitory concentration <= NRG Ciprofloxacin susceptibility test by minimum inhibitory concentration <= NRG Meropenem susceptibility test by minimum inhibitory concentration <= NRG Nitrofurantoin susceptibility test by minimum inhibitory concentration <= NRG Aztreonam susceptibility test by minimum inhibitory concentration <= NRG Extended spectrum beta lactamase (ESBL) producing bacteria susceptibility test by minimum inhibitory concentration - NRG [facility] - 10/05/16 12:19 RH IMMUNE GLOBULIN [facility] PRSMD TRFSD 1300 NRG [id number] - 10/05/16 12:19 [id number] 300ug NRG Lot number - 10/05/16 12:19 Lot number [id number] NRG cell screen - 10/05/16 12:19 cell screen 09/23/18 NRG Complete urinalysis with reflex to culture - 11/08/16 18:45 Urine color determination YELLOW NRG Urine clarity determination SLIGHTLY CLOUDY NRG Urine pH measurement by test strip 6 5- 9 Specific gravity of urine by test strip 1.020 1.016-1.022 Urine protein assay by test strip, semi-quantitative NEGATIVE NEGATIVE Urine glucose detection by automated test strip NEGATIVE NEGATIVE Erythrocytes detection in urine sediment by light microscopy NEGATIVE NEGATIVE Urine ketones detection by automated test strip NEGATIVE NEGATIVE Urine nitrite detection by test strip NEGATIVE NEGATIVE Urine total bilirubin detection by test strip NEGATIVE NEGATIVE Urine urobilinogen measurement by automated test strip (mass/volume) NORMAL NORMAL Urine leukocyte esterase detection by dipstick 2+ NEGATIVE Automated urine sediment erythrocyte count by microscopy (number/high power field) NONE NRG Automated urine sediment leukocyte count by microscopy (number/high power field ) [HPF] NRG Bacteria detection in urine sediment by light microscopy FEW NRG Squamous epithelial cells detection in urine sediment by light microscopy 10-25 NRG Crystals detection in urine sediment by light microscopy NONE NRG Casts detection in urine sediment by light microscopy NONE NRG Mucus detection in urine sediment by light microscopy NEGTIVE NRG Complete urinalysis with reflex to culture NO NRG Bacterial urine culture - 11/08/16 18:45 URINE CULTURE RESULTS <10,000/ML NRG Automated blood complete blood count (hemogram) panel - 11/08/16 19:04 Blood leukocytes automated count (number/volume) 16.5 10*3/ uL 4.3-11.0 Blood erythrocytes automated count (number/volume) 3.85 10*6 /uL 4.35-5.85 Venous blood hemoglobin measurement (mass/volume) 11.8 g/dL 11.5-16.0 Blood hematocrit (volume fraction) 35 % 35-52 Automated erythrocyte mean corpuscular volume 90 [foz_us] 80-99 Automated erythrocyte mean corpuscular hemoglobin (mass per erythrocyte) 31 pg 25-34 Automated erythrocyte mean corpuscular hemoglobin concentration measurement ( mass/volume) 34 g/dL 32-36 Automated erythrocyte distribution width ratio 13.2 % 10.0-14.5 Automated blood platelet count (count/volume) 263 10*3/uL 130-400 Automated blood platelet mean volume measurement 10.9 [foz_ us] 7.4-10.4 [id number] - 11/08/16 19:04 [id number] SPECIMEN AVAILABLE [facility] Complete blood count (CBC) with automated white blood cell (WBC) differential - 11/26/16 13:55 Blood leukocytes automated count (number/volume) 13.8 10*3/ uL 4.3-11.0 Blood erythrocytes automated count (number/volume) 3.93 10*6 /uL 4.35-5.85 Venous blood hemoglobin measurement (mass/volume) 11.7 g/dL 11.5-16.0 Blood hematocrit (volume fraction) 35 % 35-52 Automated erythrocyte mean corpuscular volume 90 [foz_us] 80-99 Automated erythrocyte mean corpuscular hemoglobin (mass per erythrocyte) 30 pg 25-34 Automated erythrocyte mean corpuscular hemoglobin concentration measurement ( mass/volume) 33 g/dL 32-36 Automated erythrocyte distribution width ratio 13.7 % 10.0-14.5 Automated blood platelet count (count/volume) 301 10*3/uL 130-400 Automated blood platelet mean volume measurement 10.5 [foz_ us] 7.4-10.4 Automated blood neutrophils/100 leukocytes 70 % 42-75 Automated blood lymphocytes/100 leukocytes 20 % 12-44 Blood monocytes/100 leukocytes 8 % 0-12 Automated blood eosinophils/100 leukocytes 2 % 0-10 Automated blood basophils/100 leukocytes 0 % 0-10 Blood neutrophils automated count (number/volume) 9.7 10*3 1.8-7.8 Blood lymphocytes automated count (number/volume) 2.8 10*3 1.0-4.0 Blood monocytes automated count (number/volume) 1.1 10*3 0.0-1.0 Automated eosinophil count 0.2 10*3/uL 0.0-0.3 Automated blood basophil count (count/volume) 0.0 10*3/uL 0.0-0.1 Comprehensive metabolic panel - 11/26/16 13:55 Serum or plasma sodium measurement (moles/volume) 138 mmol/ L 135-145 Serum or plasma potassium measurement (moles/volume) 3.7 mmol/L 3.6-5.0 Serum or plasma chloride measurement (moles/volume) 106 mmol /L 98-107 Carbon dioxide 21 mmol/L 21-32 Serum or plasma anion gap determination (moles/volume) 11 mmol/L 5-14 Serum or plasma urea nitrogen measurement (mass/volume) 6 mg /dL 7-18 Serum or plasma creatinine measurement (mass/volume) 0.56 mg /dL 0.60-1.30 Serum or plasma urea nitrogen/creatinine mass ratio 11 NRG Serum or plasma creatinine measurement with calculation of estimated glomerular filtration rate > NRG Serum or plasma glucose measurement (mass/volume) 104 mg/dL 70-105 Serum or plasma calcium measurement (mass/volume) 8.9 mg/dL 8.5-10.1 Serum or plasma total bilirubin measurement (mass/volume) 0.4 mg/dL 0.1-1.0 Serum or plasma alkaline phosphatase measurement (enzymatic activity/volume) 158 U/L 40-136 Serum or plasma aspartate aminotransferase measurement (enzymatic activity/ volume) 15 U/L 5-34 Serum or plasma alanine aminotransferase measurement (enzymatic activity/volume ) 9 U/L 0-55 Serum or plasma protein measurement (mass/volume) 6.1 g/dL 6.4-8.2 Serum or plasma albumin measurement (mass/volume) 3.4 g/dL 3.2-4.5 Complete blood count (CBC) with automated white blood cell (WBC) differential - 11/29/16 17:15 Blood leukocytes automated count (number/volume) 14.8 10*3/ uL 4.3-11.0 Blood erythrocytes automated count (number/volume) 3.87 10*6 /uL 4.35-5.85 Venous blood hemoglobin measurement (mass/volume) 11.6 g/dL 11.5-16.0 Blood hematocrit (volume fraction) 35 % 35-52 Automated erythrocyte mean corpuscular volume 89 [foz_us] 80-99 Automated erythrocyte mean corpuscular hemoglobin (mass per erythrocyte) 30 pg 25-34 Automated erythrocyte mean corpuscular hemoglobin concentration measurement ( mass/volume) 34 g/dL 32-36 Automated erythrocyte distribution width ratio 13.7 % 10.0-14.5 Automated blood platelet count (count/volume) 281 10*3/uL 130-400 Automated blood platelet mean volume measurement 10.7 [foz_ us] 7.4-10.4 Automated blood neutrophils/100 leukocytes 65 % 42-75 Automated blood lymphocytes/100 leukocytes 24 % 12-44 Blood monocytes/100 leukocytes 9 % 0-12 Automated blood eosinophils/100 leukocytes 2 % 0-10 Automated blood basophils/100 leukocytes 0 % 0-10 Blood neutrophils automated count (number/volume) 9.6 10*3 1.8-7.8 Blood lymphocytes automated count (number/volume) 3.6 10*3 1.0-4.0 Blood monocytes automated count (number/volume) 1.3 10*3 0.0-1.0 Automated eosinophil count 0.2 10*3/uL 0.0-0.3 Automated blood basophil count (count/volume) 0.0 10*3/uL 0.0-0.1 Blood manual differential performed detection - 11/29/16 17:15 Blood monocytes/100 leukocytes 1 % NRG Manual blood segmented neutrophils/100 leukocytes 70 % NRG Blood band neutrophils/100 leukocytes 1 % NRG Manual blood lymphocytes/100 leukocytes 24 % NRG Manual eosinophils/100 leukocytes in nose 4 % NRG Manual blood basophils/100 leukocytes 0 % NRG Blood erythrocyte morphology finding identification NORMAL NRG Blood type T Indirect antibody screen panel - 11/29/16 17:15 ABO+Rh group AN NRG Transfusion band number [id number] NRG Blood group antibody screen NEGATIVE NRG Microscopic examination by wet preparation - 11/29/16 17:30 WET PREP RESULTS NO YEAST OBSERVED, NO TRICHOMONAS OBSERVED NRG Complete blood count (CBC) with automated white blood cell (WBC) differential - 12/02/16 10:55 Blood leukocytes automated count (number/volume) 13.8 10*3/ uL 4.3-11.0 Blood erythrocytes automated count (number/volume) 3.78 10*6 /uL 4.35-5.85 Venous blood hemoglobin measurement (mass/volume) 11.4 g/dL 11.5-16.0 Blood hematocrit (volume fraction) 34 % 35-52 Automated erythrocyte mean corpuscular volume 89 [foz_us] 80-99 Automated erythrocyte mean corpuscular hemoglobin (mass per erythrocyte) 30 pg 25-34 Automated erythrocyte mean corpuscular hemoglobin concentration measurement ( mass/volume) 34 g/dL 32-36 Automated erythrocyte distribution width ratio 13.7 % 10.0-14.5 Automated blood platelet count (count/volume) 295 10*3/uL 130-400 Automated blood platelet mean volume measurement 10.3 [foz_ us] 7.4-10.4 Automated blood neutrophils/100 leukocytes 64 % 42-75 Automated blood lymphocytes/100 leukocytes 24 % 12-44 Blood monocytes/100 leukocytes 11 % 0-12 Automated blood eosinophils/100 leukocytes 2 % 0-10 Automated blood basophils/100 leukocytes 0 % 0-10 Blood neutrophils automated count (number/volume) 8.7 10*3 1.8-7.8 Blood lymphocytes automated count (number/volume) 3.2 10*3 1.0-4.0 Blood monocytes automated count (number/volume) 1.5 10*3 0.0-1.0 Automated eosinophil count 0.3 10*3/uL 0.0-0.3 Automated blood basophil count (count/volume) 0.0 10*3/uL 0.0-0.1 Comprehensive metabolic panel - 12/02/16 10:55 Serum or plasma sodium measurement (moles/volume) 137 mmol/ L 135-145 Serum or plasma potassium measurement (moles/volume) 3.7 mmol/L 3.6-5.0 Serum or plasma chloride measurement (moles/volume) 106 mmol /L 98-107 Carbon dioxide 23 mmol/L 21-32 Serum or plasma anion gap determination (moles/volume) 8 mmol/L 5-14 Serum or plasma urea nitrogen measurement (mass/volume) 8 mg /dL 7-18 Serum or plasma creatinine measurement (mass/volume) 0.59 mg /dL 0.60-1.30 Serum or plasma urea nitrogen/creatinine mass ratio 14 NRG Serum or plasma creatinine measurement with calculation of estimated glomerular filtration rate > NRG Serum or plasma glucose measurement (mass/volume) 75 mg/dL 70-105 Serum or plasma calcium measurement (mass/volume) 8.6 mg/dL 8.5-10.1 Serum or plasma total bilirubin measurement (mass/volume) 0.2 mg/dL 0.1-1.0 Serum or plasma alkaline phosphatase measurement (enzymatic activity/volume) 128 U/L 40-136 Serum or plasma aspartate aminotransferase measurement (enzymatic activity/ volume) 22 U/L 5-34 Serum or plasma alanine aminotransferase measurement (enzymatic activity/volume ) 11 U/L 0-55 Serum or plasma protein measurement (mass/volume) 6.0 g/dL 6.4-8.2 Serum or plasma albumin measurement (mass/volume) 3.1 g/dL 3.2-4.5 Magnesium - 12/02/16 10:55 Magnesium 1.7 mg/dL 1.8-2.4 Serum or plasma troponin i.cardiac measurement (mass/volume) - 12/02/16 10:55 Serum or plasma troponin i.cardiac measurement (mass/volume) < ng/mL <0.30 Serum or plasma thyrotropin measurement by detection limit <=0.05 miu/l (units/ volume) - 12/02/16 10:55 Serum or plasma thyrotropin measurement by detection limit <=0.05 miu/l (units/ volume) 2.16 u[iU]/mL 0.35-4.94 Serum or plasma ethanol measurement (mass/volume) - 12/02/16 10:55 Serum or plasma ethanol measurement (mass/volume) < mg/dL <10 Urine drug screening test - 12/02/16 13:00 Urine phencyclidine detection by screening method NEGATIVE NEGATIVE Urine benzodiazepines detection by screening method POSITIVE NEGATIVE Urine cocaine detection NEGATIVE NEGATIVE Urine amphetamines detection by screening method NEGATIVE NEGATIVE Urine methamphetamine detection by screening method NEGATIVE NEGATIVE Urine cannabinoids detection by screening method NEGATIVE NEGATIVE Urine opiates detection by screening method NEGATIVE NEGATIVE Urine barbiturates detection NEGATIVE NEGATIVE Screening urine tricyclic antidepressants detection NEGATIVE NEGATIVE Urine methadone detection by screening method NEGATIVE NEGATIVE Urine oxycodone detection POSITIVE NEGATIVE Urine propoxyphene detection NEGATIVE NEGATIVE Complete urinalysis with reflex to culture - 12/02/16 13:00 Urine color determination YELLOW NRG Urine clarity determination CLEAR NRG Urine pH measurement by test strip 7 5- 9 Specific gravity of urine by test strip 1.005 1.016-1.022 Urine protein assay by test strip, semi-quantitative NEGATIVE NEGATIVE Urine glucose detection by automated test strip NEGATIVE NEGATIVE Erythrocytes detection in urine sediment by light microscopy NEGATIVE NEGATIVE Urine ketones detection by automated test strip NEGATIVE NEGATIVE Urine nitrite detection by test strip NEGATIVE NEGATIVE Urine total bilirubin detection by test strip NEGATIVE NEGATIVE Urine urobilinogen measurement by automated test strip (mass/volume) NORMAL NORMAL Urine leukocyte esterase detection by dipstick NEGATIVE NEGATIVE Automated urine sediment erythrocyte count by microscopy (number/high power field) NONE NRG Automated urine sediment leukocyte count by microscopy (number/high power field ) NONE NRG Bacteria detection in urine sediment by light microscopy NEGATIVE NRG Squamous epithelial cells detection in urine sediment by light microscopy 0-2 NRG Crystals detection in urine sediment by light microscopy NONE NRG Casts detection in urine sediment by light microscopy NONE NRG Mucus detection in urine sediment by light microscopy NEGATIVE NRG Complete urinalysis with reflex to culture NO NRG Complete blood count (CBC) with automated white blood cell (WBC) differential - 12/16/16 01:24 Blood leukocytes automated count (number/volume) 6.7 10*3/ uL 4.3-11.0 Blood erythrocytes automated count (number/volume) 4.19 10*6 /uL 4.35-5.85 Venous blood hemoglobin measurement (mass/volume) 12.6 g/dL 11.5-16.0 Blood hematocrit (volume fraction) 38 % 35-52 Automated erythrocyte mean corpuscular volume 91 [foz_us] 80-99 Automated erythrocyte mean corpuscular hemoglobin (mass per erythrocyte) 30 pg 25-34 Automated erythrocyte mean corpuscular hemoglobin concentration measurement ( mass/volume) 33 g/dL 32-36 Automated erythrocyte distribution width ratio 13.7 % 10.0-14.5 Automated blood platelet count (count/volume) 395 10*3/uL 130-400 Automated blood platelet mean volume measurement 9.7 [foz_us ] 7.4-10.4 Automated blood neutrophils/100 leukocytes 44 % 42-75 Automated blood lymphocytes/100 leukocytes 39 % 12-44 Blood monocytes/100 leukocytes 11 % 0-12 Automated blood eosinophils/100 leukocytes 6 % 0-10 Automated blood basophils/100 leukocytes 0 % 0-10 Blood neutrophils automated count (number/volume) 2.9 10*3 1.8-7.8 Blood lymphocytes automated count (number/volume) 2.6 10*3 1.0-4.0 Blood monocytes automated count (number/volume) 0.7 10*3 0.0-1.0 Automated eosinophil count 0.4 10*3/uL 0.0-0.3 Automated blood basophil count (count/volume) 0.0 10*3/uL 0.0-0.1 Comprehensive metabolic panel - 12/16/16 01:24 Serum or plasma sodium measurement (moles/volume) 138 mmol/ L 135-145 Serum or plasma potassium measurement (moles/volume) 4.1 mmol/L 3.6-5.0 Serum or plasma chloride measurement (moles/volume) 107 mmol /L 98-107 Carbon dioxide 21 mmol/L 21-32 Serum or plasma anion gap determination (moles/volume) 10 mmol/L 5-14 Serum or plasma urea nitrogen measurement (mass/volume) 9 mg /dL 7-18 Serum or plasma creatinine measurement (mass/volume) 0.77 mg /dL 0.60-1.30 Serum or plasma urea nitrogen/creatinine mass ratio 12 NRG Serum or plasma creatinine measurement with calculation of estimated glomerular filtration rate > NRG Serum or plasma glucose measurement (mass/volume) 94 mg/dL 70-105 Serum or plasma calcium measurement (mass/volume) 8.9 mg/dL 8.5-10.1 Serum or plasma total bilirubin measurement (mass/volume) 0.3 mg/dL 0.1-1.0 Serum or plasma alkaline phosphatase measurement (enzymatic activity/volume) 86 U/L 40-136 Serum or plasma aspartate aminotransferase measurement (enzymatic activity/ volume) 18 U/L 5-34 Serum or plasma alanine aminotransferase measurement (enzymatic activity/volume ) 12 U/L 0-55 Serum or plasma protein measurement (mass/volume) 6.5 g/dL 6.4-8.2 Serum or plasma albumin measurement (mass/volume) 3.9 g/dL 3.2-4.5 Serum or plasma C reactive protein measurement (mass/volume) - 12/16/16 01:24 Serum or plasma C reactive protein measurement (mass/volume) 0.16 mg/dL 0.00-0.50 Complete urinalysis with reflex to culture - 12/16/16 01:57 Urine color determination YELLOW NRG Urine clarity determination SLIGHTLY CLOUDY NRG Urine pH measurement by test strip 7 5- 9 Specific gravity of urine by test strip 1.010 1.016-1.022 Urine protein assay by test strip, semi-quantitative 1+ NEGATIVE Urine glucose detection by automated test strip NEGATIVE NEGATIVE Erythrocytes detection in urine sediment by light microscopy 5+ NEGATIVE Urine ketones detection by automated test strip NEGATIVE NEGATIVE Urine nitrite detection by test strip NEGATIVE NEGATIVE Urine total bilirubin detection by test strip NEGATIVE NEGATIVE Urine urobilinogen measurement by automated test strip (mass/volume) 1 mg/dL NORMAL Urine leukocyte esterase detection by dipstick 2+ NEGATIVE Automated urine sediment erythrocyte count by microscopy (number/high power field) [HPF] NRG Automated urine sediment leukocyte count by microscopy (number/high power field ) [HPF] NRG Bacteria detection in urine sediment by light microscopy TRACE NRG Squamous epithelial cells detection in urine sediment by light microscopy 5-10 NRG Crystals detection in urine sediment by light microscopy NONE NRG Casts detection in urine sediment by light microscopy NONE NRG Mucus detection in urine sediment by light microscopy SMALL NRG Complete urinalysis with reflex to culture YES NRG Bacterial urine culture - 12/16/16 01:57 Bacterial urine culture NG NRG Methicillin resistant Staphylococcus aureus (MRSA) screening culture - 12:27 Methicillin resistant Staphylococcus aureus (MRSA) screening culture NEG NRG Urine beta human chorionic gonadotropin (hCG) measurement - 01/09/17 10:55 Urine beta human chorionic gonadotropin (hCG) measurement NEGATIVE NEGATIVE Blood type T Indirect antibody screen panel - 01/09/17 11:04 ABO+Rh group AN NRG Transfusion band number [id number] NRG Blood group antibody screen NEGATIVE NRG Encounters ACCT No. Visit Date/Time Discharge Status Pt. Type Provider Facility Loc./Unit Complaint [id number] 02/27/2015 09:25:00 02/27/2015 23: 59:59 CLS Outpatient GODWIN SEVILLA APRN [id number] 01/23/2015 11:47:00 01/23/2015 23: 59:59 CLS Outpatient GODWIN SEVILLA APRN [id number] 12/18/2014 16:07:00 12/18/2014 23: 59:59 CLS Outpatient MAR BLANTON NICOLA K [id number] 12/18/2014 10:25:00 12/18/2014 23: 59:59 CLS Outpatient GODWIN SEVILLA APRN [id number] 12/16/2014 10:01:00 12/16/2014 23: 59:59 CLS Outpatient DEMOND GUAN [id number] 11/26/2014 14:03:00 11/26/2014 23: 59:59 CLS Outpatient DEMOND GUAN [id number] 11/21/2014 08:26:00 11/21/2014 23: 59:59 CLS Outpatient JOSE SILVERIO DDS [id number] 11/10/2014 09:24:00 11/10/2014 23: 59:59 CLS Outpatient FLO GONZALEZ APRN [id number] 10/31/2014 11:08:00 10/31/2014 23: 59:59 CLS Outpatient DEMOND GUAN [id number] 10/29/2014 16:35:00 10/29/2014 23: 59:59 CLS Outpatient ELIAS DENNIS APRN [id number] 10/17/2014 11:27:00 10/17/2014 23: 59:59 CLS Outpatient GODWIN SEVILLA APRN [id number] 09/16/2014 09:30:00 09/16/2014 23: 59:59 CLS Outpatient FLO GONZALEZ APRN [id number] 09/16/2014 09:30:00 09/16/2014 23: 59:59 CLS Outpatient FLO GONZALEZ APRN [id number] 08/01/2014 13:23:00 08/01/2014 23: 59:59 CLS Outpatient GODWIN SEVILLA APRN [id number] 08/01/2014 13:23:00 08/01/2014 23: 59:59 CLS Outpatient GODWIN SEVILLA APRN [id number] 07/04/2014 08:35:00 07/04/2014 23: 59:59 CLS Outpatient FLO GONZALEZ APRN [id number] 06/10/2014 09:22:00 06/10/2014 23: 59:59 CLS Outpatient GODWIN SEVILLA APRN [id number] 05/27/2014 08:53:00 05/27/2014 23: 59:59 CLS Outpatient FLO GONZALEZ APRN [id number] 05/08/2014 11:48:00 05/08/2014 23: 59:59 CLS Outpatient GODWIN SEVILLA APRN [id number] 04/10/2014 09:33:00 04/10/2014 23: 59:59 CLS Outpatient WOLF JAMA MD [id number] 03/11/2014 13:00:00 03/11/2014 23: 59:59 CLS Outpatient JASON HUNTER APRN [id number] 03/11/2014 13:00:00 03/11/2014 23: 59:59 CLS Outpatient JASON HUNTER APRN [id number] 12/10/2013 10:52:00 12/10/2013 23: 59:59 CLS Outpatient JASON HUNTER APRN [id number] 10/18/2013 09:59:00 10/18/2013 23: 59:59 CLS Outpatient KELY FRIEDMAN DDS [id number] 09/16/2013 12:50:00 09/16/2013 23: 59:59 CLS Outpatient NICOLA MANUEL DO [id number] 09/11/2013 16:55:00 09/11/2013 23: 59:59 CLS Outpatient WOLF JAMA MD [id number] 08/15/2013 12:35:00 08/15/2013 23: 59:59 CLS Outpatient JASON HUNTER APRN [id number] 08/01/2013 09:18:00 08/01/2013 23: 59:59 CLS Outpatient NICOLA MANUEL DO [id number] 02/13/2013 13:59:00 02/13/2013 23: 59:59 CLS Outpatient [id number] 01/24/2013 15:27:00 01/24/2013 23: 59:59 CLS Outpatient XIOMARA JASON [id number] 01/16/2013 10:21:00 01/16/2013 23: 59:59 CLS Outpatient NICOLA MANUEL DO [id number] 11/29/2012 15:05:00 11/29/2012 23: 59:59 CLS Outpatient [id number] 09/28/2012 08:28:00 09/28/2012 23: 59:59 [place] [id number] 09/03/2012 15:05:00 09/03/2012 23: 59:59 CLS Outpatient WOLF JAMA MD [id number] 06/22/2013 09:12:00 Document Registration [id number] 05/15/2013 10:52:00 Document Registration [id number] 05/09/2013 15:22:00 Document Registration [id number] 04/29/2013 08:59:00 Document Registration [id number] 04/26/2013 14:51:00 Document Registration [id number] 04/19/2013 10:48:00 Document Registration [id number] 04/02/2013 13:34:00 Document Registration [id number] 03/26/2013 13:02:00 Document Registration [id number] 03/23/2013 09:54:00 Document Registration [id number] 02/22/2013 12:11:00 Document Registration
--- OUTSIDE RECORDS SUMMARY | 2017-02-05 09:11 | XMS REPORT ---
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 Name Role Phone MAYA CELIS CP Unavailable [...] Active Problem Shortness of breath 786.05 Active Assessment Underweight R63.6 Active Problem Chest pain, unspecified 786.50 Active [...] Problem Hand pain, right 729.5 Active Assessment Bipolar disorder, current episode mixed, moderate F31.62 Active Problem Visual changes H53.9 Active Assessment Generalized anxiety disorder F41.1 Active Problem Bilateral low back pain without [...] Start Date End Date Status Dosage Lexapro [facility] [address]-44 20 MG Orally Once a day Oct 17, 2014 1 tablet Klonopin [facility] [address]-18 1 MG Orally Twice a day Oct 15, 2015 1 tablet Xanax [facility] [address]-98 1 MG Orally Three times a day PRN May 22, 2015 1 tablet Seroquel XR [facility] [address]-54 200 MG Orally Once a day at bedtime - take one tablet X 7 days, then take 2 tablets Sep 17, 2015 2 tablet in the evening Naproxen ND 0 not defined Procedures Procedure Coding System Code Date Office Visit, Est Pt., Level 4 CPT-4 96034 Oct 19, 2015 DRUG SCREEN NON TLC DEVICES CPT-4 67835 Oct 19, 2015 Vital Signs Date/Time: Oct 19, 2015 Blood Pressure Systolic 110 mmHg Weight 125.5 lbs Height 66 in BMI 20.25 Index Blood Pressure Diastolic 74 mmHg Results No Known Results Summary Purpose eClinicalWorks Submission
--- OUTSIDE RECORDS SUMMARY | 2017-02-05 09:11 | XMS REPORT ---
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
== END 2017-02-02 12:47 | disposition home or self-care (01) ==
LOC: EDUNIT# 12:07 → ER 12:09
DX: G89.18 Other acute postprocedural pain (principal); K08.409 Partial loss of teeth, unspecified cause, unspecified class
CPT/HCPCS: 99282

== ENCOUNTER → 2017-04-05 | Outpatient (CLI) | payer SELFPAY ==
[~2017-04-05] MED LIST changes: +HYDR-756 PO
--- NOTE | 2017-04-05 11:56 | Diagnostic Imaging Report ---
EXAMINATION: Transabdominal pelvic ultrasound. INDICATION: Pelvic pain. FINDINGS: The uterus has been removed. The right ovary is 4.3 x 2.9 x 2 cm. The left ovary is 4 x 2.3 x 2.8 cm. Arterial and venous waveforms are demonstrated over both ovaries. The urinary bladder appears unremarkable. IMPRESSION: Unremarkable exam. Dictated by: Dictated on workstation # [id number]
== END ==
LOC: RAD 09:36
PROVIDERS: ATTEND Nurse Practitioner Family
DX: R10.2 Pelvic and perineal pain (principal)
CPT/HCPCS: 76830; 76856

== ENCOUNTER 2017-11-30 10:02 | Outpatient (CLI) | payer OTHER ==
[~2017-11-30] VITALS: Ht 167.6 cm; Wt 58.5 kg
[~2017-11-30 10:02] MED LIST changes: -HYDR-3812 PO; -NAPR500T3 PO; +NAPR500T4 PO
[2017-11-30] MEDS ORDERED: CLON0.5T PO (10:15)
[2017-11-30] MEDS ORDERED: MIRT30TA PO (10:15)
[2017-11-30] MEDS ORDERED: LAMO150T3 PO (10:15)
[2017-11-30 10:16] VITALS: BP 127/75
[2017-11-30 10:35] LABS: BASOPHILS % (AUTO) 0 % (0-10); EOSINOPHILS # (AUTO) 0.2 10^3/uL (0.0-0.3); EOSINOPHILS % (AUTO) 3 % (0-10); HEMATOCRIT 40 % (35-52); HEMOGLOBIN 13.7 G/DL (11.5-16.0); LYMPHOCYTES # (AUTO) 2.1 X 10^3 (1.0-4.0); LYMPHOCYTES % (AUTO) 35 % (12-44); MEAN CORPUSCULAR HEMOGLOBIN 30 PG (25-34); MEAN CORPUSCULAR HGB CONC 35 G/DL (32-36); MEAN CORPUSCULAR VOLUME 88 FL (80-99); MEAN PLATELET VOLUME 10.1 FL (7.4-10.4); MONOCYTES # (AUTO) 0.8 X 10^3 (0.0-1.0); MONOCYTES % (AUTO) 13 % (0-12); NEUTROPHILS # (AUTO) 3.1 X 10^3 (1.8-7.8); NEUTROPHILS % (AUTO) 50 % (42-75); PLATELET COUNT 242 10^3/uL (130-400); RED BLOOD COUNT 4.52 10^6/uL (4.35-5.85); RED CELL DISTRIBUTION WIDTH 13.2 % (10.0-14.5); WHITE BLOOD COUNT 6.2 10^3/uL (4.3-11.0)
== END 2017-11-30 10:40 ==
LOC: PREOP 10:02
PROVIDERS: ATTEND Obstetrics & Gynecology
DX: Z01.812 Encounter for preprocedural laboratory examination (principal); Z11.2 Encounter for screening for other bacterial diseases; N80.9 Endometriosis, unspecified; D64.9 Anemia, unspecified
CPT/HCPCS: 36415; 85025; 87081

== ENCOUNTER 2017-12-21 01:40 | Emergency (ER) | payer OTHER ==
[~2017-12-21] VITALS: Ht 167.6 cm; Wt 59.0 kg
[~2017-12-21 01:40] MED LIST changes: +CLON0.5T PO; +LAMO150T3 PO; +MIRT30TA PO; +NORG1TAB14 PO
--- NOTE | 2017-12-21 02:09 | ED General ---
General Chief Complaint: Skin/Wound Problems Stated Complaint: POST OP ABD SURGERY,BLEEDING THRU,VERY PAINFULL Nursing Triage Note: pt reports she had her left ovary removed today by dr adam. she reports wound below umbilicus is bleeding. also c/o bilat shoulder pain, right rib pain, et abd pain. Nursing Sepsis Screen: No Definite Risk Source of Information: Patient Exam Limitations: No Limitations History of Present Illness Date Seen by Provider: Dec 21, 2017 Time Seen by Provider: 01:51 Initial Comments This 27-year-old young lady presents to the emergency room with complaints of postoperative pain after having left salpingo-oophorectomy and treatment of endometriosis by Dr. Adam yesterday. She also notes that her lower incision has been using some blood. She reports her pain is not well controlled at this time either. Allergies and Home Medications Allergies Coded Allergies: Penicillins (Unverified Allergy, Mild, PT ABLE TO TAKE ANCEF, 03/26/14) diclofenac (Unverified Allergy, Unknown, 01/21/15) divalproex sodium (Verified Allergy, Unknown, 08/26/15) Home Medications Clonazepam 0.5 Mg Tablet, 0.5 MG PO TID, (Reported) Lamotrigine 150 Mg Tablet, 150 MG PO DAILY, (Reported) Mirtazapine 30 Mg Tablet, 30 MG PO HS, (Reported) Norgestimate-Ethinyl Estradiol 1 Each Tablet, 1 EACH PO DAILY for 90 Days, #90 Ref 4 Prescribed by: JENNIFER HILL on 12/20/17 1341 Oxycodone HCl/Acetaminophen 1 Each Tablet, 1-2 TAB PO Q4H PRN for PAIN, #30 Prescribed by: JENNIFER HILL on 12/20/17 1341 Constitutional: no symptoms reported EENTM: no symptoms reported Respiratory: no symptoms reported Cardiovascular: no symptoms reported Gastrointestinal: no symptoms reported Genitourinary: see HPI Musculoskeletal: no symptoms reported Skin: see HPI Psychiatric/Neurological: No Symptoms Reported Hematologic/Lymphatic: No Symptoms Reported Past Osnqxua-Nacdbx-Petmgz Hx Patient Social History Alcohol Use: Denies Use Recreational Drug Use: No Smoking Status: Current Everyday Smoker Type Used: Cigarettes Recent Foreign Travel: No Contact w/Someone Who Travel: No Recent Infectious Disease Expo: No Recent Hopitalizations: No Immunizations Up To Date Tetanus Booster (TDap): Less than 5yrs PED Vaccines UTD: Yes Date of Influenza Vaccine: Aug 30, 2017 Seasonal Allergies Seasonal Allergies: No Surgeries History of Surgeries: Yes (LAPAROTOMY) Surgeries: Abdominal, Adenoidectomy, Hysterectomy, Oophorectomy, Tonsillectomy Respiratory History of Respiratory Disorde: Yes Respiratory Disorders: Asthma Cardiovascular History of Cardiac Disorders: Yes (Hx. 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 Genitourinary History of Genitourinary Disor: No Gastrointestinal History of Gastrointestinal Di: No Musculoskeletal History of Musculoskeletal Dis: Yes (ALL REPORTED BY PT) Musculoskeletal Disorders: Back Injury, Scoliosis, Chronic Back Pain Endocrine History of Endocrine Disorders: No HEENT History of HEENT Disorders: No Cancer History of Cancer: No Psychosocial History of Psychiatric Problem: Yes Behavioral Health Disorders: Anxiety, Bipolar, Depression Integumentary History of Skin or Integumenta: No Blood Transfusions History of Blood Disorders: No Adverse Reaction to a Blood Tr: No Family Medical History Significant Family History: No Pertinent Family Hx Family Medial History: Family history: Hypertension (mother, MGM, and PGM) Heart disease (mother and father) History of - anemia (family Hx of blood transfusions) Infertile Kidney disease (MGM) Physical Exam Vital Signs Vital Signs - First Documented 12/21/17 12/21/17 01:49 02:17 Temp 99.0 Pulse 120 Resp 18 B/P (MAP) 129/79 (96) Pulse Ox 99 Capillary Refill : Less Than 3 Seconds General Appearance: No Apparent Distress, WD/WN, Thin HEENT: PERRL/EOMI, Normal ENT Inspection Respiratory: Lungs Clear, Normal Breath Sounds, No Accessory Muscle Use Cardiovascular: Regular Rate, Rhythm, No Edema, Tachycardia Gastrointestinal: Normal Bowel Sounds, Non Tender, Soft Extremity: Normal Inspection, No Pedal Edema Skin: Normal Color, Warm/Dry, Other (the lower incision dressing is saturated with blood. Dressing was removed to reveal a small clot on the incision with intact sutures. There was no active bleeding.) Progress/Results/Core Measures Suspected Sepsis Recent Fever Within 48 Hours: No Infection Criteria Present: None New/Unexplained Altered Menta: No Sepsis Screen: No Definite Risk Sepsis Diagnosis: SIRS Temperature:99.0 Pulse: 120 Respiratory Rate: 18 Blood Pressure 129 /79 Mean: 96 Results/Orders Vital Signs/I&O Vital Sign - Last 12Hours 12/21/17 12/21/17 01:49 02:17 Temp 99.0 Pulse 120 120 Resp 18 18 B/P (MAP) 129/79 (96) Pulse Ox 99 Capillary Refill : Less Than 3 Seconds Blood Pressure Mean: 96 Progress Note : Progress Note Lower incisional dressing was taken down at patient's request for further examination. The incision appeared intact with no evidence of localized infection. There was a small clot overlying the incision which was left in place. There was no active bleeding. Dressing was replaced. Patient was offered a Toradol injection for further pain management. She declined and wishes to take ibuprofen at home. She will contact Dr. Adam in the morning with any other problems or concerns. Departure Impression Impression: Primary Impression: Postoperative pain Additional Impression: Postoperative bleeding from incision Disposition: 01 HOME, SELF-CARE Condition: Improved Departure-Patient Inst. Decision time for Depature: 02:00 Referrals: NICOLA MANUEL DO (PCP) Primary Care Physician FLO GONZALEZ (Family) Primary Care Physician Patient Instructions: NO INSTRUCTIONS GIVEN Add. Discharge Instructions: You may continue taking your Percocet as prescribed. For pain not controlled by Percocet, try adding ibuprofen up to 600 mg every 6 hours as needed. Take with food or milk to avoid stomach irritation. If incision bleeding returns, apply gentle direct pressure and add an ice pack for 20 minutes. If this does not resolve bleeding, consider returning to care. If you have any further problems or concerns, please contact Dr. Adam or return to the ER. All discharge instructions reviewed with patient and/or family. Voiced understanding. Copy Copies To 1: JENNIFER ADAM MD, JOSHUA T MD Dec 21, 2017 02:09
[2017-12-21 02:17] VITALS: BP 120/79
--- OUTSIDE RECORDS SUMMARY | 2017-12-24 04:16 | XMS REPORT | Continuity of Care Document ---
Author Author [facility] Address Unknown Phone Unavailable Allergies Active Description [...] Drug Allergy N/A N/A 05/09/2013 Yes Penicillins [id number] Drug Allergy Mild PT ABLE TO TAKE 03/26/2014 Yes Depakote 250 mg tablet,delayed release (DR/EC) Drug Allergy N/A N/A 12/18 Yes diclofenac [id number] Drug Allergy Unknown N/A 01/21/2015 Yes divalproex sodium [id number] Drug Allergy Unknown N/A 08/26/2015 Medications There is no data. Problems Date Dx Coded Attending Type Code [...] WOLF JAMA MD 296.90 Mood Disorder 06/20/2008 MANUEL DO NICOLA K 296.90 Mood Disorder 06/20/2008 IDALIA KELY BAKER J 296.90 Mood Disorder 06/20/2008 GARTON STATE INSPECTOR, JASON D 296.90 Mood Disorder 06/20/2008 GARMYRA STATE INSPECTORJASON Kirkpatrick D 296.90 Mood Disorder 06/20/2008 GARTON STATE INSPECTOR, JASON D 296.90 Mood Disorder 06/20/2008 WOLF JAMA MD 296.90 Mood Disorder 06/20/2008 ROEL STATE INSPECTOR, GODWIN 296.90 Mood Disorder 06/20/2008 MADL STATE INSPECTOR, FLO L 296.90 Mood Disorder 06/20/2008 ROEL STATE INSPECTOR, GODWIN 296.90 Mood Disorder 06/20/2008 MADL STATE INSPECTOR, FLO L 296.90 Mood Disorder 06/20/2008 ROEL STATE INSPECTOR, GODWIN 296.90 Mood Disorder 06/20/2008 ROEL STATE INSPECTOR, GODWIN 296.90 Mood Disorder 06/20/2008 MADL STATE INSPECTOR, FLO L 296.90 Mood Disorder 06/20/2008 MADL STATE INSPECTOR, FLO L 296.90 Mood Disorder 06/20/2008 ROEL STATE INSPECTOR, GODWIN 296.90 Mood Disorder 06/20/2008 SONNY STATE INSPECTOR, ELIAS A 296.90 Mood Disorder 06/20/2008 ANGELA CS, DEMOND R 296.90 Mood Disorder 06/20/2008 MADL STATE INSPECTOR, FLO L 296.90 Mood Disorder 06/20/2008 NUSRAT BAKER JOSE 296.90 Mood Disorder 06/20/2008 ANGELA LSCS, DEMOND R 296.90 Mood Disorder 06/20/2008 ANGELA LSCS, DEMOND R 296.90 Mood Disorder 06/20/2008 ROEL STATE INSPECTOR, GODWIN 296.90 Mood Disorder 06/20/2008 MANUEL DOMARALA K 296.90 Mood Disorder 06/20/2008 ROEL STATE INSPECTOR, GODWIN 296.90 Mood Disorder 06/20/2008 ROEL STATE INSPECTOR, GODWIN 296.90 Mood Disorder 10/03/2008 WOLF JAMA MD 465.9 Upper Respiratory Infection 10/03/2008 WOLF JAMA MD 465.9 Upper Respiratory Infection 10/03/2008 465.9 Upper Respiratory Infection 10/03/2008 MAR BLANTONNICOLA K 465.9 Upper Respiratory Infection 10/03/2008 KRYSJASON ZARAGOZA DO 465.9 Upper Respiratory Infection 10/03/2008 465.9 Upper Respiratory Infection 10/03/2008 465.9 Upper Respiratory Infection 10/03/2008 465.9 Upper Respiratory Infection 10/03/2008 465.9 Upper Respiratory Infection 10/03/2008 465.9 Upper Respiratory Infection 10/03/2008 465.9 Upper Respiratory Infection 10/03/2008 465.9 Upper Respiratory Infection 10/03/2008 465.9 Upper Respiratory Infection 10/03/2008 465.9 Upper Respiratory Infection 10/03/2008 465.9 Upper Respiratory Infection 10/03/2008 465.9 Upper Respiratory Infection 10/03/2008 MAR BLANTONMARALA K 465.9 Upper Respiratory Infection 10/03/2008 JASON HUNTER APRN 465.9 Upper Respiratory Infection 10/03/2008 OWLF JAMA MD 465.9 Upper Respiratory Infection 10/03/2008 MAR BLANTONNICOLA K 465.9 Upper Respiratory Infection 10/03/2008 IDALIA BAKER, KELY Dickens 465.9 Upper Respiratory Infection 10/03/2008 JASON HUNTER APRN 465.9 Upper Respiratory Infection 10/03/2008 JASON HUNTER APRN 465.9 Upper Respiratory Infection 10/03/2008 JASON HUNTER APRN 465.9 Upper Respiratory Infection 10/03/2008 WOLF JAMA MD 465.9 Upper Respiratory Infection 10/03/2008 ROEL STATE INSPECTOR, GODWIN 465.9 Upper Respiratory Infection 10/03/2008 MADTima STATE INSPECTOR, FLO L 465.9 Upper Respiratory Infection 10/03/2008 ROEL STATE INSPECTOR, GODWIN 465.9 Upper Respiratory Infection 10/03/2008 MADL STATE INSPECTOR, FLO L 465.9 Upper Respiratory Infection 10/03/2008 ROEL STATE INSPECTOR, GODWIN 465.9 Upper Respiratory Infection 10/03/2008 ROEL STATE INSPECTOR, GODWIN 465.9 Upper Respiratory Infection 10/03/2008 LISA MENG, FLO L 465.9 Upper Respiratory Infection 10/03/2008 MADL STATE INSPECTOR, FLO L 465.9 Upper Respiratory Infection 10/03/2008 ROEL STATE INSPECTOR, GODWIN 465.9 Upper Respiratory Infection 10/03/2008 SONNY STATE INSPECTOR, ELIAS A 465.9 Upper Respiratory Infection 10/03/2008 [facility], DEMOND R 465.9 Upper Respiratory Infection 10/03/2008 MADL STATE INSPECTOR, FLO L 465.9 Upper Respiratory Infection 10/03/2008 NUSRAT JENKINSS, JOSE 465.9 Upper Respiratory Infection 10/03/2008 [facility], DEMOND R 465.9 Upper Respiratory Infection 10/03/2008 [facility], DEMOND R 465.9 Upper Respiratory Infection 10/03/2008 ROEL STATE INSPECTOR, GODWIN 465.9 Upper Respiratory Infection 10/03/2008 NICOLA MANUEL DO K 465.9 Upper Respiratory Infection 10/03/2008 ROEL STATE INSPECTOR, GODWIN 465.9 Upper Respiratory Infection 10/03/2008 ROEL STATE INSPECTOR, GODWIN 465.9 Upper Respiratory Infection 11/27/2008 WOLF [...] JAMA MD V58.69 Medication High Risk 11/27/2008 NICOLA MANUEL DO V58.69 Medication High Risk 11/27/2008 WHITE DDS, KELY J V58.69 Medication High Risk 11/27/2008 JASON HUNTER APRN V58.69 Medication High Risk 11/27/2008 JASON HUNTER APRN V58.69 Medication High Risk 11/27/2008 JASON HUNTER APRN V58.69 Medication High Risk 11/27/2008 WOLF JAMA MD V58.69 Medication High Risk 11/27/2008 ROEL STATE INSPECTOR, GODWIN V58.69 Medication High Risk 11/27/2008 MADL STATE INSPECTOR, FLO L V58.69 Medication High Risk 11/27/2008 ROEL STATE INSPECTOR, GODWIN V58.69 Medication High Risk 11/27/2008 MADL STATE INSPECTOR, FOL L V58.69 Medication High Risk 11/27/2008 ROEL STATE INSPECTOR, GODWIN V58.69 Medication High Risk 11/27/2008 ROEL STATE INSPECTOR, GODWIN V58.69 Medication High Risk 11/27/2008 MADL STATE INSPECTOR, FLO L V58.69 Medication High Risk 11/27/2008 MADL STATE INSPECTOR, FLO L V58.69 Medication High Risk 11/27/2008 ROEL STATE INSPECTOR, GODWIN V58.69 Medication High Risk 11/27/2008 CARMINA DENNIS APRNIDI Maddy V58.69 Medication High Risk 11/27/2008 [facility], DEMOND R V58.69 Medication High Risk 11/27/2008 MADL STATE INSPECTOR, FLO L V58.69 Medication High Risk 11/27/2008 SILVERIO DDSSALVADORW V58.69 Medication High Risk 11/27/2008 [facility], DEMOND R V58.69 Medication High Risk 11/27/2008 [facility], DEMOND R V58.69 Medication High Risk 11/27/2008 ROEL STATE INSPECTOR, GODWIN V58.69 Medication High Risk 11/27/2008 MAR BLANTONNICOLA V58.69 Medication High Risk 11/27/2008 ROEL STATE INSPECTOR, GODWIN V58.69 Medication High Risk 11/27/2008 ROEL STATE INSPECTOR, GODWIN V58.69 Medication High Risk 07/01/2009 WOLF [...] 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 07/01/2009 JASON SOLANO DO F 296.32 MO DEPRESSIVE RECURRENT MODERATE 07/01/2009 JASON [...] JAMA MD 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 07/01/2009 ROEL STATE INSPECTOR, GODWIN 296.32 MO DEPRESSIVE RECURRENT MODERATE 07/01/2009 ROEL STATE INSPECTOR, GODWIN 300.00 AN ANXIETY UNSPEC 07/01/2009 ROEL STATE INSPECTOR, GODWIN 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 07/01/2009 MADL STATE INSPECTOR, FLO L 296.32 MO DEPRESSIVE RECURRENT MODERATE 07/01/2009 MADL STATE INSPECTOR, FLO L 300.00 AN ANXIETY UNSPEC 07/01/2009 MADL STATE INSPECTOR, FLO L 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 07/01/2009 ROEL STATE INSPECTOR, GODWIN 296.32 MO DEPRESSIVE RECURRENT MODERATE 07/01/2009 ROEL STATE INSPECTOR, GODWIN 300.00 AN ANXIETY UNSPEC 07/01/2009 ROEL STATE INSPECTOR, GODWIN 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 07/01/2009 MADL STATE INSPECTOR, FLO L 296.32 MO DEPRESSIVE RECURRENT MODERATE 07/01/2009 MADL STATE INSPECTOR, FLO L 300.00 AN ANXIETY UNSPEC 07/01/2009 MADL STATE INSPECTOR, FLO L 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 07/01/2009 ROEL STATE INSPECTOR, GODWIN 296.32 MO DEPRESSIVE RECURRENT MODERATE 07/01/2009 ROEL STATE INSPECTOR, GODWIN 300.00 AN ANXIETY UNSPEC 07/01/2009 ROEL STATE INSPECTOR, GODWIN 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 07/01/2009 ROEL STATE INSPECTOR, GODWIN 296.32 MO DEPRESSIVE RECURRENT MODERATE 07/01/2009 ROEL STATE INSPECTOR, GODWIN 300.00 AN ANXIETY UNSPEC 07/01/2009 ROEL STATE INSPECTOR, GODWIN 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 07/01/2009 MADL STATE INSPECTOR, FLO L 296.32 MO DEPRESSIVE RECURRENT MODERATE 07/01/2009 MADL STATE INSPECTOR, FLO L 300.00 AN ANXIETY UNSPEC 07/01/2009 FLO GONZALEZ APRN L 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 07/01/2009 MADROSITA Alfred APRNA L 296.32 MO DEPRESSIVE RECURRENT MODERATE 07/01/2009 MADL ROSITA MENGA L 300.00 AN ANXIETY UNSPEC 07/01/2009 ROSITA GONZALEZ APRNA L 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 07/01/2009 ROEL STATE INSPECTOR, GODWIN 296.32 MO DEPRESSIVE RECURRENT MODERATE 07/01/2009 ROEL STATE INSPECTOR, GODWIN 300.00 AN ANXIETY UNSPEC 07/01/2009 ROEL STATE INSPECTOR, GODWIN 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 07/01/2009 SONNY STATE INSPECTOR, ELIAS A 296.32 MO DEPRESSIVE RECURRENT MODERATE 07/01/2009 SONNY STATE INSPECTOR, ELIAS A 300.00 AN ANXIETY UNSPEC 07/01/2009 SONNY STATE INSPECTOR, ELIAS A 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 07/01/2009 [facility], DEMOND R 296.32 MO DEPRESSIVE RECURRENT MODERATE 07/01/2009 [facility], DEMOND R 300.00 AN ANXIETY UNSPEC 07/01/2009 [facility], DEMOND R 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 07/01/2009 FLO GONZALEZ APRN L 296.32 MO DEPRESSIVE RECURRENT MODERATE 07/01/2009 FLO GONZALEZ APRN L 300.00 AN ANXIETY UNSPEC 07/01/2009 ROSITA GONZALEZ APRNA L 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 07/01/2009 SILVERIO DDS, JOSE 296.32 MO DEPRESSIVE RECURRENT MODERATE 07/01/2009 SILVERIO DDS, JOSE 300.00 AN ANXIETY UNSPEC 07/01/2009 SILVERIO DDS, JOSE 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 07/01/2009 [facility], DEMOND R 296.32 MO DEPRESSIVE RECURRENT MODERATE 07/01/2009 [facility], DEMOND R 300.00 AN ANXIETY UNSPEC 07/01/2009 ANGELA CS, DEMOND R 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 07/01/2009 [facility], DEMOND R 296.32 MO DEPRESSIVE RECURRENT MODERATE 07/01/2009 [facility], DEMOND R 300.00 AN ANXIETY UNSPEC 07/01/2009 [facility], DEMOND R 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 07/01/2009 ROEL STATE INSPECTOR, GODWIN 296.32 MO DEPRESSIVE RECURRENT MODERATE 07/01/2009 ROEL STATE INSPECTOR, GODWIN 300.00 AN ANXIETY UNSPEC 07/01/2009 ROEL STATE INSPECTOR, GODWIN 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 07/01/2009 NICOLA MANUEL DO K 296.32 MO DEPRESSIVE RECURRENT MODERATE 07/01/2009 NICOLA MANUEL DO K 300.00 AN ANXIETY UNSPEC 07/01/2009 NICOLA MANUEL DO K 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 07/01/2009 ROEL STATE INSPECTOR, GODWIN 296.32 MO DEPRESSIVE RECURRENT MODERATE 07/01/2009 ROEL STATE INSPECTOR, GODWIN 300.00 AN ANXIETY UNSPEC 07/01/2009 ROEL STATE INSPECTOR, GODWIN 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 07/01/2009 ROEL STATE INSPECTOR, GODWIN 296.32 MO DEPRESSIVE RECURRENT MODERATE 07/01/2009 ROEL STATE INSPECTOR, GODWIN 300.00 AN ANXIETY UNSPEC 07/01/2009 ROEL STATE INSPECTOR, GODWIN 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 07/16/2009 WOLF JAMA [...] 300.01 AN PANIC DIS W/O AGORA 07/16/2009 IDALIA BAKER, KELY J 300.01 AN PANIC DIS W/O AGORA 07/16/2009 [...] AN PANIC DIS W/O AGORA 07/16/2009 MADL TAQUERIA, FLO L 300.01 AN PANIC DIS W/O AGORA 07/16/2009 ROEL STATE INSPECTOR, GODWIN 300.01 AN PANIC DIS W/O AGORA 07/16/2009 ROEL TAQUERIA GODWIN 300.01 AN PANIC DIS W/O AGORA 07/16/2009 MADL STATE INSPECTOR, FLO L 300.01 AN PANIC DIS W/O AGORA 07/16/2009 MADL STATE INSPECTOR, FLO L 300.01 AN PANIC DIS W/O AGORA 07/16/2009 ROEL STATE INSPECTOR, GODWIN 300.01 AN PANIC DIS W/O AGORA 07/16/2009 SONNYKENJI MENG ELIAS A 300.01 AN PANIC DIS W/O AGORA 07/16/2009 ANGELA [facility], DEMOND Fernando 300.01 AN PANIC DIS W/O AGORA 07/16/2009 MADL STATE INSPECTOR, FLO L 300.01 AN PANIC DIS W/O AGORA 07/16/2009 JOSE SILVERIO DDS 300.01 AN PANIC DIS W/O AGORA 07/16/2009 [facility], DEMOND R 300.01 AN PANIC DIS W/O AGORA 07/16/2009 [facility], DEMOND R 300.01 AN PANIC DIS W/O AGORA 07/16/2009 ROEL STATE INSPECTOR, GODWIN 300.01 AN PANIC DIS W/O AGORA 07/16/2009 NICOLA MANUEL DO K 300.01 AN PANIC DIS W/O AGORA 07/16/2009 ROEL STATE INSPECTOR, GODWIN 300.01 AN PANIC DIS W/O AGORA 07/16/2009 ROEL STATE INSPECTOR, GODWIN 300.01 AN PANIC DIS W/O AGORA [...] FRIEDMAN DDS 307.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 07/25/2009 DALE CANOJASON Kirkpatrick 307.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 07/25/2009 DALE STATE INSPECTOR, JASON Steel 307.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 07/25/2009 GARTON STATE INSPECTOR, JASON Steel 307.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 07/25/2009 WOLF JAMA MD 307.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 07/25/2009 ROEL STATE INSPECTOR, GODWIN 307.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 07/25/2009 MADL STATE INSPECTOR, FLO L 307.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 07/25/2009 ROEL STATE INSPECTOR, GODWIN 307.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 07/25/2009 MADL STATE INSPECTOR, FLO L 307.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 07/25/2009 ROEL STATE INSPECTOR, GODWIN 307.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 07/25/2009 ROEL STATE INSPECTOR, GODWIN 307.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 07/25/2009 MADL STATE INSPECTOR, FLO L 307.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 07/25/2009 MADL STATE INSPECTOR, FLO L 307.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 07/25/2009 ROEL STATE INSPECTOR, GODWIN 307.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 07/25/2009 SONNY STATE INSPECTOR, ELIAS A 307.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 07/25/2009 [facility], DEMOND R 307.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 07/25/2009 MADL STATE INSPECTOR, FLO L 307.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 07/25/2009 JOSE SILVERIO DDS 307.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 07/25/2009 [facility], DEMOND R 307.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 07/25/2009 [facility], DEMOND R 307.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 07/25/2009 ROEL STATE INSPECTOR, GODWIN 307.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 07/25/2009 NICOLA MANUEL DO 307.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 07/25/2009 ROEL STATE INSPECTOR, GODWIN 307.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 07/25/2009 ROEL STATE INSPECTOR, GODWIN 307.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 12/17/2009 WOLF JAMA MD 311 DEPRESSIVE DISORDER NOS 12/17/2009 WOLF JAMA MD 311 DEPRESSIVE DISORDER NOS 12/17/2009 311 DEPRESSIVE DISORDER NOS 12/17/2009 NICOLA MANUEL DO K 311 DEPRESSIVE DISORDER NOS 12/17/2009 KRYSNIK DO JASON Mathew 311 DEPRESSIVE DISORDER NOS 12/17/2009 311 DEPRESSIVE DISORDER NOS 12/17/2009 311 DEPRESSIVE DISORDER NOS 12/17/2009 311 DEPRESSIVE DISORDER NOS 12/17/2009 311 DEPRESSIVE DISORDER NOS 12/17/2009 311 DEPRESSIVE DISORDER NOS 12/17/2009 311 DEPRESSIVE DISORDER NOS 12/17/2009 311 DEPRESSIVE DISORDER NOS 12/17/2009 311 DEPRESSIVE DISORDER NOS 12/17/2009 311 DEPRESSIVE DISORDER NOS 12/17/2009 311 DEPRESSIVE DISORDER NOS 12/17/2009 311 DEPRESSIVE DISORDER NOS 12/17/2009 MARAL MANUEL DOA K 311 DEPRESSIVE DISORDER NOS 12/17/2009 JASON HUNTER APRN 311 DEPRESSIVE DISORDER NOS 12/17/2009 WOLF JAMA MD 311 DEPRESSIVE DISORDER NOS 12/17/2009 NICOLA MANUEL DO 311 DEPRESSIVE DISORDER NOS 12/17/2009 KELY FRIEDMAN DDS 311 DEPRESSIVE DISORDER NOS 12/17/2009 JASON HUNTER APRN 311 DEPRESSIVE DISORDER NOS 12/17/2009 JASON HUNTER APRN D 311 DEPRESSIVE DISORDER NOS 12/17/2009 JASON HUNTER APRN D 311 DEPRESSIVE DISORDER NOS 12/17/2009 WOLF JAMA MD 311 DEPRESSIVE DISORDER NOS 12/17/2009 ROEL STATE INSPECTOR, GODWIN 311 DEPRESSIVE DISORDER NOS 12/17/2009 MADL STATE INSPECTOR, FLO L 311 DEPRESSIVE DISORDER NOS 12/17/2009 ROEL STATE INSPECTOR, GODWIN 311 DEPRESSIVE DISORDER NOS 12/17/2009 MADL STATE INSPECTOR, FLO L 311 DEPRESSIVE DISORDER NOS 12/17/2009 ROEL STATE INSPECTOR, GODWIN 311 DEPRESSIVE DISORDER NOS 12/17/2009 ROEL STATE INSPECTOR, GODWIN 311 DEPRESSIVE DISORDER NOS 12/17/2009 MADL STATE INSPECTOR, FLO L 311 DEPRESSIVE DISORDER NOS 12/17/2009 MADL STATE INSPECTOR, FLO L 311 DEPRESSIVE DISORDER NOS 12/17/2009 ROEL STATE INSPECTOR, GODWIN 311 DEPRESSIVE DISORDER NOS 12/17/2009 SONNY STATE INSPECTOR, ELIAS A 311 DEPRESSIVE DISORDER NOS 12/17/2009 [facility], DEMOND R 311 DEPRESSIVE DISORDER NOS 12/17/2009 LISA MENGFLO 311 DEPRESSIVE DISORDER NOS 12/17/2009 JOSE SILVERIO DDS 311 DEPRESSIVE DISORDER NOS 12/17/2009 [facility], DEMOND R 311 DEPRESSIVE DISORDER NOS 12/17/2009 [facility], DEMOND R 311 DEPRESSIVE DISORDER NOS 12/17/2009 ROEL STATE INSPECTOR, GODWIN 311 DEPRESSIVE DISORDER NOS 12/17/2009 NICOLA MANUEL DO 311 DEPRESSIVE DISORDER NOS 12/17/2009 ROEL STATE INSPECTOR, GODWIN 311 DEPRESSIVE DISORDER NOS 12/17/2009 ROEL STATE INSPECTOR, GODWIN 311 DEPRESSIVE DISORDER NOS 05/06/2010 Ot 620.2 05/06/2010 Ot 789.04 05/13/2010 EVITA JONES, WOLF V72.31 In Home Sales Representative Exam, Routine 05/13/2010 WOLF JAMA MD V72.31 In Home Sales Representative Exam, Routine 05/13/2010 V72.31 In Home Sales Representative Exam, Routine 05/13/2010 NICOLA MANUEL DO V72.31 In Home Sales Representative Exam, Routine 05/13/2010 JASON SOLANO DO V72.31 In Home Sales Representative Exam, Routine 05/13/2010 V72.31 In Home Sales Representative Exam, Routine 05/13/2010 V72.31 In Home Sales Representative Exam, Routine 05/13/2010 V72.31 In Home Sales Representative Exam, Routine 05/13/2010 V72.31 In Home Sales Representative Exam, Routine 05/13/2010 V72.31 In Home Sales Representative Exam, Routine 05/13/2010 V72.31 In Home Sales Representative Exam, Routine 05/13/2010 V72.31 In Home Sales Representative Exam, Routine 05/13/2010 V72.31 In Home Sales Representative Exam, Routine 05/13/2010 V72.31 In Home Sales Representative Exam, Routine 05/13/2010 V72.31 In Home Sales Representative Exam, Routine 05/13/2010 V72.31 In Home Sales Representative Exam, Routine 05/13/2010 NICOLA MANUEL DO V72.31 In Home Sales Representative Exam, Routine 05/13/2010 JASON HUNTER APRN V72.31 In Home Sales Representative Exam, Routine 05/13/2010 WOLF JAMA MD V72.31 In Home Sales Representative Exam, Routine 05/13/2010 NICOLA MANUEL DO V72.31 In Home Sales Representative Exam, Routine 05/13/2010 KELY FRIEDMAN DDS V72.31 In Home Sales Representative Exam, Routine 05/13/2010 JASON HUNTER APRN V72.31 In Home Sales Representative Exam, Routine 05/13/2010 JASON HUNTER APRN V72.31 In Home Sales Representative Exam, Routine 05/13/2010 DALE MENG, JASON Steel V72.31 In Home Sales Representative Exam, Routine 05/13/2010 EVITA JONES, WOLF V72.31 In Home Sales Representative Exam, Routine 05/13/2010 ROEL STATE INSPECTOR, GODWIN V72.31 In Home Sales Representative Exam, Routine 05/13/2010 MADL STATE INSPECTOR, FLO L V72.31 In Home Sales Representative Exam, Routine 05/13/2010 ROEL STATE INSPECTOR, GODWIN V72.31 In Home Sales Representative Exam, Routine 05/13/2010 MADL STATE INSPECTOR, FLO L V72.31 In Home Sales Representative Exam, Routine 05/13/2010 ROEL STATE INSPECTOR, GODWIN V72.31 In Home Sales Representative Exam, Routine 05/13/2010 ROEL STATE INSPECTOR, GODWIN V72.31 In Home Sales Representative Exam, Routine 05/13/2010 MADL STATE INSPECTOR, FLO L V72.31 In Home Sales Representative Exam, Routine 05/13/2010 MADL STATE INSPECTOR, FLO L V72.31 In Home Sales Representative Exam, Routine 05/13/2010 ROEL STATE INSPECTOR, GODWIN V72.31 In Home Sales Representative Exam, Routine 05/13/2010 SONNY MENG, ELIAS Castañeda V72.31 In Home Sales Representative Exam, Routine 05/13/2010 [facility], DEMOND R V72.31 In Home Sales Representative Exam, Routine 05/13/2010 MADL STATE INSPECTOR, FLO L V72.31 In Home Sales Representative Exam, Routine 05/13/2010 JOSE SILVERIO DDS V72.31 In Home Sales Representative Exam, Routine 05/13/2010 [facility], DEMOND R V72.31 In Home Sales Representative Exam, Routine 05/13/2010 [facility], DEMOND R V72.31 In Home Sales Representative Exam, Routine 05/13/2010 ROEL STATE INSPECTOR, GODWIN V72.31 In Home Sales Representative Exam, Routine 05/13/2010 NICOLA MANUEL DO V72.31 In Home Sales Representative Exam, Routine 05/13/2010 ROEL STATE INSPECTOR, GODWIN V72.31 In Home Sales Representative Exam, Routine 05/13/2010 ROEL STATE INSPECTOR, GODWIN V72.31 In Home Sales Representative Exam, Routine 05/26/2010 Ot 526.9 05/26/2010 Ot 719.41 05/26/2010 Ot 723.1 05/26/2010 Ot 784.0 05/26/2011 Ot 847.0 SPRAIN OF NECK 05/26/2011 Ot 850.0 CONCUSSION W/ O COMA 05/26/2011 Ot 959.01 HEAD INJURY , NOS 05/26/2011 Ot E000.8 OTHER EXTERNAL CAUSE STATUS 05/26/2011 Ot E849.0 ACCIDENT IN HOME 05/26/2011 Ot E880.9 FALL ON STAIR/STEP NEC 06/27/2011 Ot 719.41 JOINT PAIN- SHLDER 09/13/2011 Ot 276.52 HYPOVOLEMIA 09/13/2011 Ot 292.85 DRUG INDUCED SLEEP DISORDERS 09/13/2011 Ot 300.4 DYSTHYMIC DISORDER 09/13/2011 Ot 305.1 TOBACCO USE DISORDER 09/13/2011 Ot 427.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 09/13/2011 Ot 780.97 ALTERED MENTAL STATUS 09/13/2011 Ot 963.0 POIS- ANTIALLRG/ANTIEMET 09/13/2011 Ot 965.4 POIS-AROM ANALGESICS NEC 09/13/2011 Ot 965.61 POIS- PROPIONIC ACID DERIVATIVES 09/13/2011 Ot 965.8 POIS-ANALGES/ ANTIPYR NEC 09/13/2011 Ot 966.1 POISON- HYDANTOIN DERIVAT 09/13/2011 Ot 969.00 POISONING BY ANTIDEPRESSANT, UNSPECIFIED 09/13/2011 Ot 969.1 POIS- PHENOTHIAZINE TRANQ 09/13/2011 Ot 969.3 POISON- ANTIPSYCHOTIC NEC 09/13/2011 Ot E941.9 ADV EFF AUTONOM AGNT NOS 09/13/2011 Ot E950.0 SUICIDE- ANALGESICS 09/13/2011 Ot 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 09/13/2011 Ot E950.4 SUICIDE-DRUG /MEDICIN NEC 09/13/2011 Ot V15.41 HX OF PHYSICAL [...] 09/29/2011 JASON HUNTER APRN 276.8 Hypopotassemia 09/29/2011 WOLF JAMA MD 276.8 Hypopotassemia 09/29/2011 ROEL MENG, GODWIN 276.8 Hypopotassemia 09/29/2011 LISA MENG, FLO L 276.8 Hypopotassemia 09/29/2011 ROEL MENG GODWIN 276.8 Hypopotassemia 09/29/2011 LISA STATE INSPECTOR, FLO L 276.8 Hypopotassemia 09/29/2011 ROEL STATE INSPECTOR, GODWIN 276.8 Hypopotassemia 09/29/2011 ROEL MENG, GODWIN 276.8 Hypopotassemia 09/29/2011 LISA MENG, FLO L 276.8 Hypopotassemia 09/29/2011 LISA MENG, FLO L 276.8 Hypopotassemia 09/29/2011 ROEL MENG GODWIN 276.8 Hypopotassemia 09/29/2011 ELIAS DENNIS APRN A 276.8 Hypopotassemia 09/29/2011 [facility], DEMOND R 276.8 Hypopotassemia 09/29/2011 LISA TAQUERIA FLO Alfred 276.8 Hypopotassemia 09/29/2011 NUSRAT ALICESJOSE 276.8 Hypopotassemia 09/29/2011 [facility], DEMOND R 276.8 Hypopotassemia 09/29/2011 [facility], DEMOND R 276.8 Hypopotassemia 09/29/2011 ROEL STATE INSPECTOR, GODWIN 276.8 Hypopotassemia 09/29/2011 NICOLA MANUEL DO 276.8 Hypopotassemia 09/29/2011 ROEL STATE INSPECTOR, GODWIN 276.8 Hypopotassemia 09/29/2011 ROEL STATE INSPECTOR, GODWIN 276.8 Hypopotassemia 12/13/2011 WOLF JAMA MD [...] 526.9 Unspecified Disease Of The Jaws 12/13/2011 GARTON JASON MENG 526.9 Unspecified Disease Of The [place]aws 12/13/2011 JASON HUNTER APRN 526.9 Unspecified Disease Of The Jaws 12/13/2011 WOLF JAMA MD 526.9 Unspecified Disease Of The Jaws 12/13/2011 [employer] INSPECTOR, GODWIN 526.9 Unspecified Disease Of The Jaws 12/13/2011 MADL TAQUERIA, FLO L 526.9 Unspecified Disease Of The [place]aws 12/13/2011 [employer] INS[employer]OR, GODWIN 526.9 Unspecified Disease Of The [place]aws 12/13/2011 [employer] INS[employer]OR, FLO L 526.9 Unspecified Disease Of The [place]aws 12/13/2011 [employer] INS[employer]OR, GODWIN 526.9 Unspecified Disease Of The [place]aws 12/13/2011 [employer] INS[employer]OR, GODWIN 526.9 Unspecified Disease Of The [place]aws 12/13/2011 [employer]OR, FLO L 526.9 Unspecified Disease Of The Jaws 12/13/2011 [employer] INSPECTOR, FLO L 526.9 Unspecified Disease Of The [place]aws 12/13/2011 [employer]OR, GODWIN 526.9 Unspecified Disease Of The [place]aws 12/13/2011 ELIAS DENNIS APRN 526.9 Unspecified Disease Of The [place]aws 12/13/2011 ANGELA DEMOND CHOUDHURY 526.9 Unspecified Disease Of The [place]aws 12/13/2011 [employer], FLO L 526.9 Unspecified Disease Of The [place]aws 12/13/2011 JOSE SILVERIO DDS 526.9 Unspecified Disease Of The [place] 12/13/2011 [facility], DEMOND R 526.9 Unspecified Disease Of The [place]aws 12/13/2011 [facility], DEMOND R 526.9 Unspecified Disease Of The [place]aws 12/13/2011 [employer], GODWIN 526.9 Unspecified Disease Of The Jaws 12/13/2011 NICOLA MANUEL DO 526.9 Unspecified Disease Of [facility] 12/13/2011 ROEL STATE INSPECTOR, GODWIN 526.9 Unspecified Disease Of The Jaws 12/13/2011 [employer]EL STATE INSPECTOR, GODWIN 526.9 Unspecified Disease Of The Jaws [...] JASON SOLANO DO V25.9 Contraception Management 12/29/2011 WERDER DO, JASON F V76.2 Cervical Cancer Screening (pap Smear) 12/29/2011 [...] BLANTONA K 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 12/29/2011 MANUEL MARAL BLANTONA K 427.89 Other Specified Cardiac Dysrhythmias 12/29/2011 [...] MANUEL DO 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 12/29/2011 MARAL MANUEL DOA K 427.89 Other Specified Cardiac Dysrhythmias 12/29/2011 MARAL MANUEL DOA K V25.9 Contraception Management 12/29/2011 MANUEL MARAL BLANTONA K V76.2 Cervical Cancer Screening (pap Smear) 12/29/2011 WHITE DDS, KELY J 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 12/29/2011 WHITE DDSJASMINON J 427.89 Other Specified Cardiac Dysrhythmias 12/29/2011 [...] APRN 427.89 Other Specified Cardiac Dysrhythmias 12/29/2011 GODWIN SEVILLA APRN V25.9 Contraception Management 12/29/2011 GODWIN SEVILLA APRN V76.2 Cervical Cancer Screening (pap Smear) 12/29/2011 FLO GONZALEZ APRN L 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 12/29/2011 NARAYAN GONZALEZ APRNWNYA L 427.89 Other Specified Cardiac Dysrhythmias 12/29/2011 NARAYAN GONZALEZ APRNWNYA L V25.9 Contraception Management 12/29/2011 MADL STATE INSPECTOR, FLO L V76.2 Cervical Cancer Screening (pap Smear) 12/29/2011 ROEL STATE INSPECTOR, GODWIN 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 12/29/2011 ROEL STATE INSPECTOR, GODWIN 427.89 Other Specified Cardiac Dysrhythmias 12/29/2011 ROEL STATE INSPECTOR, GODWIN V25.9 Contraception Management 12/29/2011 ROEL STATE INSPECTOR, GODWIN V76.2 Cervical Cancer Screening (pap Smear) 12/29/2011 MADL STATE INSPECTOR, FLO L 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 12/29/2011 MADL STATE INSPECTOR, FLO L 427.89 Other Specified Cardiac Dysrhythmias 12/29/2011 MADL STATE INSPECTOR, FLO L V25.9 Contraception Management 12/29/2011 MADL STATE INSPECTOR, FLO L V76.2 Cervical Cancer Screening (pap Smear) 12/29/2011 ROEL STATE INSPECTOR, GODWIN 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 12/29/2011 ROEL STATE INSPECTOR, GODWIN 427.89 Other Specified Cardiac Dysrhythmias 12/29/2011 ROEL STATE INSPECTOR, GODWIN V25.9 Contraception Management 12/29/2011 ROEL STATE INSPECTOR, GODWIN V76.2 Cervical Cancer Screening (pap Smear) 12/29/2011 ROEL STATE INSPECTOR, GODWIN 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 12/29/2011 ROEL STATE INSPECTOR, GODWIN 427.89 Other Specified Cardiac Dysrhythmias 12/29/2011 ROEL STATE INSPECTOR, GODWIN V25.9 Contraception Management 12/29/2011 OREL STATE INSPECTOR, GODWIN V76.2 Cervical Cancer Screening (pap Smear) 12/29/2011 MADL STATE INSPECTOR, FLO L 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 12/29/2011 MADL STATE INSPECTOR, FLO L 427.89 Other Specified Cardiac Dysrhythmias 12/29/2011 MADL STATE INSPECTOR, FLO L V25.9 Contraception Management 12/29/2011 MADL STATE INSPECTOR, FLO L V76.2 Cervical Cancer Screening (pap Smear) 12/29/2011 MADL STATE INSPECTOR, FLO L 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 12/29/2011 MADL STATE INSPECTOR, FLO L 427.89 Other Specified Cardiac Dysrhythmias 12/29/2011 MADL STATE INSPECTOR, FLO L V25.9 Contraception Management 12/29/2011 MADL STATE INSPECTOR, FLO L V76.2 Cervical Cancer Screening (pap Smear) 12/29/2011 GODWIN SEVILLA APRN 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 12/29/2011 ROEL STATE INSPECTOR, GODWIN 427.89 Other Specified Cardiac Dysrhythmias 12/29/2011 ROEL STATE INSPECTOR, GODWIN V25.9 Contraception Management 12/29/2011 ROEL STATE INSPECTOR, GODWIN V76.2 Cervical Cancer Screening (pap Smear) 12/29/2011 SONNY STATE INSPECTOR, ELIAS A 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 12/29/2011 SONNY STATE INSPECTOR, ELIAS A 427.89 Other Specified Cardiac Dysrhythmias 12/29/2011 SONNY STATE INSPECTOR, ELIAS A V25.9 Contraception Management 12/29/2011 SONNY STATE INSPECTOR, ELIAS A V76.2 Cervical Cancer Screening (pap Smear) 12/29/2011 [facility], DEMOND R 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 12/29/2011 [facility], DEMOND R 427.89 Other Specified Cardiac Dysrhythmias 12/29/2011 [facility], DEMOND R V25.9 Contraception Management 12/29/2011 [facility], DEMOND Fernando V76.2 Cervical Cancer Screening (pap Smear) 12/29/2011 LISA MENG, FLO L 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 12/29/2011 BRYANL STATE INSPECTOR, FLO L 427.89 Other Specified Cardiac Dysrhythmias 12/29/2011 MADL STATE INSPECTOR, FLO L V25.9 Contraception Management 12/29/2011 MADL STATE INSPECTOR, FLO L V76.2 Cervical Cancer Screening (pap Smear) 12/29/2011 JOSE SILVERIO DDS 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 12/29/2011 NUSRAT JENKINSSJOSE 427.89 Other Specified Cardiac Dysrhythmias 12/29/2011 SILVERIO ALICESJOSE V25.9 Contraception Management 12/29/2011 NUSRAT JENKINSSJOSE V76.2 Cervical Cancer Screening (pap Smear) 12/29/2011 [facility], DEMOND R 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 12/29/2011 [facility], DEMOND R 427.89 Other Specified Cardiac Dysrhythmias 12/29/2011 [facility], DEMOND R V25.9 Contraception Management 12/29/2011 [facility], DEMOND R V76.2 Cervical Cancer Screening (pap Smear) 12/29/2011 [facility], DEMOND R 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 12/29/2011 [facility], DEMOND R 427.89 Other Specified Cardiac Dysrhythmias 12/29/2011 [facility], DEMOND R V25.9 Contraception Management 12/29/2011 [facility], DEMOND R V76.2 Cervical Cancer Screening (pap Smear) 12/29/2011 ROEL STATE INSPECTOR, GODWIN 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 12/29/2011 ROEL STATE INSPECTOR, GODWIN 427.89 Other Specified Cardiac Dysrhythmias 12/29/2011 ROEL STATE INSPECTOR, GODWIN V25.9 Contraception Management 12/29/2011 ROEL STATE INSPECTOR, GODWIN V76.2 Cervical Cancer Screening (pap Smear) 12/29/2011 NICOLA MANUEL DO 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 12/29/2011 NICOLA MANUEL DO 427.89 Other Specified Cardiac Dysrhythmias 12/29/2011 NICOLA MANUEL DO V25.9 Contraception Management 12/29/2011 NICOLA MANUEL DO V76.2 Cervical Cancer Screening (pap Smear) 12/29/2011 ROEL STATE INSPECTOR, GODWIN 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 12/29/2011 ROEL STATE INSPECTOR, GODWIN 427.89 Other Specified Cardiac Dysrhythmias 12/29/2011 ROEL STATE INSPECTOR, GODWIN V25.9 Contraception Management 12/29/2011 ROEL STATE INSPECTOR, GODWIN V76.2 Cervical Cancer Screening (pap Smear) 12/29/2011 ROEL STATE INSPECTOR, GODWIN 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 12/29/2011 ROEL STATE INSPECTOR, GODWIN 427.89 Other Specified Cardiac Dysrhythmias 12/29/2011 ROEL STATE INSPECTOR, GODWIN V25.9 Contraception Management 12/29/2011 ROEL STATE INSPECTOR, GODWIN V76.2 Cervical Cancer Screening (pap Smear) [...] Cervix With Low Grade Squamous Intraepithelial Lesion ( lgsil) 01/25/2012 JASON SOLANO DO 427.9 Arrhythmia, Cardiac [...] Cervix With Low Grade Squamous Intraepithelial Lesion ( lgsil) 01/25/2012 GARTON STATE INSPECTOR, JASON D 427.9 Arrhythmia, Cardiac (sinus) 01/25/2012 JASON [...] Grade Squamous Intraepithelial Lesion (lgsil) 01/25/2012 MANUEL DO NICOLA K 427.9 Arrhythmia, Cardiac (sinus) 01/25/2012 MANUEL DO NICOLA K 786.50 Unspecified Chest Pain 01/25/2012 MANUEL DO, NICOLA K 795.03 Papanicolaou Smear Of Cervix With Low Grade Squamous Intraepithelial Lesion ( lgsil) 01/25/2012 WHITE DDS, KELY J 427.9 Arrhythmia, Cardiac (sinus) 01/25/2012 WHITE DDS, KELY J 786.50 Unspecified Chest Pain 01/25/2012 WHITE DDS, KELY J 795.03 Papanicolaou Smear Of Cervix With Low Grade Squamous Intraepithelial Lesion (lgsil) 01/25/2012 JASON HUNTER APRN D 427.9 Arrhythmia, Cardiac (sinus) 01/25/2012 JASON [...] APRN D 427.9 Arrhythmia, Cardiac (sinus) 01/25/2012 JASON HUNTER APRN D 786.50 Unspecified Chest Pain 01/25/2012 JASON HUNTER APRN 795.03 Papanicolaou Smear Of Cervix With Low Grade Squamous Intraepithelial Lesion (lgsil) 01/25/2012 WOLF JAMA MD 427.9 Arrhythmia, Cardiac (sinus) 01/25/2012 WOLF JAMA MD 786.50 Unspecified Chest Pain 01/25/2012 WOLF JAMA MD 795.03 Papanicolaou Smear Of Cervix With Low Grade Squamous Intraepithelial Lesion (lgsil) 01/25/2012 ROEL STATE INSPECTOR, GODWIN 427.9 Arrhythmia, Cardiac (sinus) 01/25/2012 ROEL STATE INSPECTOR, GODWIN 786.50 Unspecified Chest Pain 01/25/2012 ROEL STATE INSPECTOR, GODWIN 795.03 Papanicolaou Smear Of Cervix With Low Grade Squamous Intraepithelial Lesion (lgsil) 01/25/2012 MADL STATE INSPECTOR, FLO L 427.9 Arrhythmia, Cardiac (sinus) 01/25/2012 MADL STATE INSPECTOR, FLO L 786.50 Unspecified Chest Pain 01/25/2012 MADL STATE INSPECTOR, FLO L 795.03 Papanicolaou Smear Of Cervix With Low Grade Squamous Intraepithelial Lesion (lgsil) 01/25/2012 ROEL STATE INSPECTOR, GODWIN 427.9 Arrhythmia, Cardiac (sinus) 01/25/2012 ROEL STATE INSPECTOR, GODWIN 786.50 Unspecified Chest Pain 01/25/2012 ROEL STATE INSPECTOR, GODWIN 795.03 Papanicolaou Smear Of Cervix With Low Grade Squamous Intraepithelial Lesion (lgsil) 01/25/2012 MADL STATE INSPECTOR, FLO L 427.9 Arrhythmia, Cardiac (sinus) 01/25/2012 MADL STATE INSPECTOR, FLO L 786.50 Unspecified Chest Pain 01/25/2012 MADL STATE INSPECTOR, FLO L 795.03 Papanicolaou Smear Of Cervix With Low Grade Squamous Intraepithelial Lesion (lgsil) 01/25/2012 ROEL STATE INSPECTOR, GODWIN 427.9 Arrhythmia, Cardiac (sinus) 01/25/2012 ROEL STATE INSPECTOR, GODWIN 786.50 Unspecified Chest Pain 01/25/2012 ROEL STATE INSPECTOR, GODWIN 795.03 Papanicolaou Smear Of Cervix With Low Grade Squamous Intraepithelial Lesion (lgsil) 01/25/2012 ROEL STATE INSPECTOR, GODWIN 427.9 Arrhythmia, Cardiac (sinus) 01/25/2012 ROEL STATE INSPECTOR, GODWIN 786.50 Unspecified Chest Pain 01/25/2012 ROEL STATE INSPECTOR, GODWIN 795.03 Papanicolaou Smear Of Cervix With Low Grade Squamous Intraepithelial Lesion (lgsil) 01/25/2012 MADL STATE INSPECTOR, FLO L 427.9 Arrhythmia, Cardiac (sinus) 01/25/2012 MADL STATE INSPECTOR, FLO L 786.50 Unspecified Chest Pain 01/25/2012 MADL STATE INSPECTOR, FLO L 795.03 Papanicolaou Smear Of Cervix With Low Grade Squamous Intraepithelial Lesion (lgsil) 01/25/2012 MADL STATE INSPECTOR, FLO L 427.9 Arrhythmia, Cardiac (sinus) 01/25/2012 MADL STATE INSPECTOR, FLO L 786.50 Unspecified Chest Pain 01/25/2012 MADL STATE INSPECTOR, FLO L 795.03 Papanicolaou Smear Of Cervix With Low Grade Squamous Intraepithelial Lesion (lgsil) 01/25/2012 ROEL MENG GODWIN 427.9 Arrhythmia, Cardiac (sinus) 01/25/2012 ROEL STATE INSPECTOR, GODWIN 786.50 Unspecified Chest Pain 01/25/2012 ROEL STATE INSPECTOR, GODWIN 795.03 Papanicolaou Smear Of Cervix With Low Grade Squamous Intraepithelial Lesion (lgsil) 01/25/2012 SONNY MENG ELIAS A 427.9 Arrhythmia, Cardiac (sinus) 01/25/2012 SONNY MENG, ELIAS A 786.50 Unspecified Chest Pain 01/25/2012 SONNY MENG, ELIAS A 795.03 Papanicolaou Smear Of Cervix With Low Grade Squamous Intraepithelial Lesion (lgsil) 01/25/2012 [facility], DEMOND R 427.9 Arrhythmia, Cardiac (sinus) 01/25/2012 [facility] DEMOND R 786.50 Unspecified Chest Pain 01/25/2012 [facility] DEMOND R 795.03 Papanicolaou Smear Of Cervix With Low Grade Squamous Intraepithelial Lesion (lgsil) 01/25/2012 MADL STATE INSPECTOR, FLO L 427.9 Arrhythmia, Cardiac (sinus) 01/25/2012 MADL STATE INSPECTOR, FLO L 786.50 Unspecified Chest Pain 01/25/2012 MADL STATE INSPECTOR, FLO L 795.03 Papanicolaou Smear Of Cervix With Low Grade Squamous Intraepithelial Lesion (lgsil) 01/25/2012 SILVERIO DDS, JOSE 427.9 Arrhythmia, Cardiac (sinus) 01/25/2012 SILVERIO DDS, JOSE 786.50 Unspecified Chest Pain 01/25/2012 SILVERIO DDS, JOSE 795.03 Papanicolaou Smear Of Cervix With Low Grade Squamous Intraepithelial Lesion (lgsil) 01/25/2012 [facility] DEMOND R 427.9 Arrhythmia, Cardiac (sinus) 01/25/2012 ANGELA LSCS, DEMOND R 786.50 Unspecified Chest Pain 01/25/2012 GOSHEN LSCS, DEMOND R 795.03 Papanicolaou Smear Of Cervix With Low Grade Squamous Intraepithelial Lesion (lgsil) 01/25/2012 ANGELA LSCS, DEMOND R 427.9 Arrhythmia, Cardiac (sinus) 01/25/2012 [facility], DEMOND R 786.50 Unspecified Chest Pain 01/25/2012 [facility] DEMOND R 795.03 Papanicolaou Smear Of Cervix With Low Grade Squamous Intraepithelial Lesion (lgsil) 01/25/2012 ROEL STATE INSPECTOR, GODWIN 427.9 Arrhythmia, Cardiac (sinus) 01/25/2012 ROEL STATE INSPECTOR, GODWIN 786.50 Unspecified Chest Pain 01/25/2012 ROEL STATE INSPECTOR, GODWIN 795.03 Papanicolaou Smear Of Cervix With Low Grade Squamous Intraepithelial Lesion (lgsil) 01/25/2012 NICOLA MANUEL DO K 427.9 Arrhythmia, Cardiac (sinus) 01/25/2012 NICOLA MANUEL DO K 786.50 Unspecified Chest Pain 01/25/2012 NICOLA MANUEL DO K 795.03 Papanicolaou Smear Of Cervix With Low Grade Squamous Intraepithelial Lesion ( lgsil) 01/25/2012 ROEL STATE INSPECTOR, GODWIN 427.9 Arrhythmia, Cardiac (sinus) 01/25/2012 ROEL STATE INSPECTOR, GODWIN 786.50 Unspecified Chest Pain 01/25/2012 ROEL STATE INSPECTOR, GODWIN 795.03 Papanicolaou Smear Of Cervix With Low Grade Squamous Intraepithelial Lesion (lgsil) 01/25/2012 ROEL STATE INSPECTOR, GODWIN 427.9 Arrhythmia, Cardiac (sinus) 01/25/2012 ROEL STATE INSPECTOR, GODWIN 786.50 Unspecified Chest Pain 01/25/2012 GODWIN [...] Unspecified 06/25/2012 789.00 abdominal pain 06/25/2012 MANUEL DOMARALA K 724.5 Backache Unspecified 06/25/2012 MANUEL DO, NICOLA K 789.00 abdominal pain 06/25/2012 JASON HUNTER APRN 724.5 Backache Unspecified 06/25/2012 JASON HUNTER APRN 789.00 abdominal pain 06/25/2012 WOLF JAMA MD 724.5 Backache Unspecified 06/25/2012 WOLF JAMA MD 789.00 abdominal pain 06/25/2012 MANUEL DONICOLA K 724.5 Backache Unspecified 06/25/2012 MANUEL DO, NICOLA K 789.00 abdominal pain 06/25/2012 WHITE DDSKELY 724.5 Backache Unspecified 06/25/2012 WHITE DDSKELY 789.00 abdominal pain 06/25/2012 JASON HUNTER APRN [...] SEVILLA APRN 724.5 Backache Unspecified 06/25/2012 ROEL MENG GODWIN 789.00 abdominal pain 06/25/2012 FLO GONZALEZ APRN 724.5 Backache Unspecified 06/25/2012 ROSITA GONZALEZ APRNA L 789.00 abdominal pain 06/25/2012 ROEL MENG GODWIN 724.5 Backache Unspecified 06/25/2012 ROEL MENG GODWIN 789.00 abdominal pain 06/25/2012 FLO GONZALEZ APRN L 724.5 Backache Unspecified 06/25/2012 MADL STATE INSPECTOR, FLO L 789.00 abdominal pain 06/25/2012 ROEL STATE INSPECTOR, GODWIN 724.5 Backache Unspecified 06/25/2012 ROEL STATE INSPECTOR, GDOWIN 789.00 abdominal pain 06/25/2012 ROEL STATE INSPECTOR, GODWIN 724.5 Backache Unspecified 06/25/2012 ROEL STATE INSPECTOR, GODWIN 789.00 abdominal pain 06/25/2012 MADL STATE INSPECTOR, FLO L 724.5 Backache Unspecified 06/25/2012 MADL STATE INSPECTOR, FLO L 789.00 abdominal pain 06/25/2012 MADL STATE INSPECTOR, FLO L 724.5 Backache Unspecified 06/25/2012 MADL STATE INSPECTOR, FLO L 789.00 abdominal pain 06/25/2012 ROEL STATE INSPECTOR, GODWIN 724.5 Backache Unspecified 06/25/2012 ROEL STATE INSPECTOR, GODWIN 789.00 abdominal pain 06/25/2012 SONNY STATE INSPECTOR, ELIAS A 724.5 Backache Unspecified 06/25/2012 SONNY STATE INSPECTOR, ELIAS A 789.00 abdominal pain 06/25/2012 [facility], DEMOND R 724.5 Backache Unspecified 06/25/2012 [facility], DEMOND R 789.00 abdominal pain 06/25/2012 MADL STATE INSPECTOR, FLO L 724.5 Backache Unspecified 06/25/2012 MADL STATE INSPECTOR, FLO L 789.00 abdominal pain 06/25/2012 SILVERIO DDS, JOSE 724.5 Backache Unspecified 06/25/2012 SILVREIO DDS, JOSE 789.00 abdominal pain 06/25/2012 [facility], DEMOND R 724.5 Backache Unspecified 06/25/2012 [facility], DEMOND R 789.00 abdominal pain 06/25/2012 [facility], DEMOND R 724.5 Backache Unspecified 06/25/2012 [facility], DEMOND R 789.00 abdominal pain 06/25/2012 ROEL STATE INSPECTOR, GODWIN 724.5 Backache Unspecified 06/25/2012 ROEL STATE INSPECTOR, GODWIN 789.00 abdominal pain 06/25/2012 MANUEL DO NICOLA K 724.5 Backache Unspecified 06/25/2012 MANUEL DO, NICOLA K 789.00 abdominal pain 06/25/2012 ROEL STATE INSPECTOR, GODWIN 724.5 Backache Unspecified 06/25/2012 ROEL STATE INSPECTOR, GODWIN 789.00 abdominal pain 06/25/2012 ROEL STATE INSPECTOR, GODWIN 724.5 Backache Unspecified 06/25/2012 ROEL STATE INSPECTOR, GODWIN 789.00 abdominal pain 06/27/2012 EVITA JONES, WOLF 785.1 Palpitations 06/27/2012 EVITA JONES, WOLF 786.05 Shortness Of Breath 06/27/2012 WOLF JAMA MD 786.50 Chest Pain 06/27/2012 WOLF JAMA MD 785.1 Palpitations 06/27/2012 WOLF JAMA MD 786.05 Shortness Of Breath 06/27/2012 WOLF JAMA MD 786.50 Chest Pain 06/27/2012 785.1 Palpitations 06/27/2012 786.05 Shortness Of Breath 06/27/2012 786.50 Chest Pain 06/27/2012 MANUEL DOMARALA K 785.1 Palpitations 06/27/2012 MANUEL DO NICOLA K 786.05 Shortness Of Breath 06/27/2012 MANUEL DO NICOLA K 786.50 Chest Pain 06/27/2012 JASON SOLANO DO F 785.1 Palpitations 06/27/2012 JASON SOLANO DO F 786.05 Shortness Of Breath 06/27/2012 JASON SOLANO DO F 786.50 Chest Pain 06/27/2012 785.1 Palpitations [...] NICOLA K 786.50 Chest Pain 06/27/2012 WHITE KELY BAKER 785.1 Palpitations 06/27/2012 WHITE DDSKELY 786.05 Shortness Of Breath 06/27/2012 WHITE DDSKELY J 786.50 Chest Pain 06/27/2012 GARTON STATE INSPECTOR, JASON D 785.1 Palpitations 06/27/2012 [place] STATE INSPECTORASHLEY KirkpatrickJASON D 786.05 Shortness Of Breath 06/27/2012 BRIANMYRA STATE INSPECTORASHLEY KirkpatrickJASON D 786.50 Chest Pain 06/27/2012 BRIANMYRA STATE INSPECTORAMAURY KirkpatrickJASON D 785.1 Palpitations 06/27/2012 [place] STATE INSPECTORASHLEY KirkpatrickJASON D 786.05 Shortness Of Breath 06/27/2012 DALE ASHLEY MENGBETH D 786.50 Chest Pain 06/27/2012 [place] STATE INSPECTORASHLEY KirkpatrickJASON D 785.1 Palpitations 06/27/2012 DALE ASHLEY MENGBETH D 786.05 Shortness Of Breath 06/27/2012 JASON HUNTER APRN D 786.50 Chest Pain 06/27/2012 WOLF JAMA MD 785.1 Palpitations 06/27/2012 WOLF JAMA MD 786.05 Shortness Of Breath 06/27/2012 WOLF JAMA MD 786.50 Chest Pain 06/27/2012 ROEL STATE INSPECTOR, GODWIN 785.1 Palpitations 06/27/2012 ROEL STATE INSPECTOR, GODWIN 786.05 Shortness Of Breath 06/27/2012 ROEL STATE INSPECTOR, GODWIN 786.50 Chest Pain 06/27/2012 MADL STATE INSPECTOR, FLO L 785.1 Palpitations 06/27/2012 MADL STATE INSPECTOR, FLO L 786.05 Shortness Of Breath 06/27/2012 MADL STATE INSPECTOR, FLO L 786.50 Chest Pain 06/27/2012 ROEL STATE INSPECTOR, GODWIN 785.1 Palpitations 06/27/2012 ROEL STATE INSPECTOR, GODWIN 786.05 Shortness Of Breath 06/27/2012 ROEL STATE INSPECTOR, GODWIN 786.50 Chest Pain 06/27/2012 MADL STATE INSPECTOR, FLO L 785.1 Palpitations 06/27/2012 MADL STATE INSPECTOR, FLO L 786.05 Shortness Of Breath 06/27/2012 MADL STATE INSPECTOR, FLO L 786.50 Chest Pain 06/27/2012 ROEL STATE INSPECTOR, GODWIN 785.1 Palpitations 06/27/2012 ROEL STATE INSPECTOR, GODWIN 786.05 Shortness Of Breath 06/27/2012 ROEL STATE INSPECTOR, GODWIN 786.50 Chest Pain 06/27/2012 ROEL STATE INSPECTOR, GODWIN 785.1 Palpitations 06/27/2012 ROEL STATE INSPECTOR, GODWIN 786.05 Shortness Of Breath 06/27/2012 ROEL STATE INSPECTOR, GODWIN 786.50 Chest Pain 06/27/2012 MADL STATE INSPECTOR, FLO L 785.1 Palpitations 06/27/2012 MADL STATE INSPECTOR, FLO L 786.05 Shortness Of Breath 06/27/2012 MADL STATE INSPECTOR, FLO L 786.50 Chest Pain 06/27/2012 MADL STATE INSPECTOR, FLO L 785.1 Palpitations 06/27/2012 MADL STATE INSPECTOR, FLO L 786.05 Shortness Of Breath 06/27/2012 MADL STATE INSPECTOR, FLO L 786.50 Chest Pain 06/27/2012 ROEL STATE INSPECTOR, GODWIN 785.1 Palpitations 06/27/2012 ROEL STATE INSPECTOR, GODWIN 786.05 Shortness Of Breath 06/27/2012 ROEL STATE INSPECTOR, GODWIN 786.50 Chest Pain 06/27/2012 SONNY STATE INSPECTOR, ELIAS A 785.1 Palpitations 06/27/2012 SONNY STATE INSPECTOR, ELIAS A 786.05 Shortness Of Breath 06/27/2012 SONNY STATE INSPECTOR, ELIAS A 786.50 Chest Pain 06/27/2012 [facility], DEMOND R 785.1 Palpitations 06/27/2012 [facility], DEMOND R 786.05 Shortness Of Breath 06/27/2012 [facility] DEMOND R 786.50 Chest Pain 06/27/2012 MADL STATE INSPECTOR, FLO L 785.1 Palpitations 06/27/2012 MADL STATE INSPECTOR, FLO L 786.05 Shortness Of Breath 06/27/2012 MADL STATE INSPECTOR, FLO L 786.50 Chest Pain 06/27/2012 SILVERIO DDS, JOES 785.1 Palpitations 06/27/2012 SILVERIO DDS, JOSE 786.05 Shortness Of Breath 06/27/2012 SILVERIO DDS, JOSE 786.50 Chest Pain 06/27/2012 ANGELA LSCS, DEMOND R 785.1 Palpitations 06/27/2012 ANGELA LSCS, DEMOND R 786.05 Shortness Of Breath 06/27/2012 ANGELA LSCS, DEMOND R 786.50 Chest Pain 06/27/2012 ANGELA LSCS, DEMOND R 785.1 Palpitations 06/27/2012 ANGELA LSCS, DEMOND R 786.05 Shortness Of Breath 06/27/2012 ANGELA LSCS, DEMOND R 786.50 Chest Pain 06/27/2012 ROEL STATE INSPECTOR, GODWIN 785.1 Palpitations 06/27/2012 ROEL STATE INSPECTOR, GODWIN 786.05 Shortness Of Breath 06/27/2012 ROEL STATE INSPECTOR, GODWIN 786.50 Chest Pain 06/27/2012 MANUEL DO, NICOLA K 785.1 Palpitations 06/27/2012 MANUEL DO, NICOLA K 786.05 Shortness Of Breath 06/27/2012 MANUEL DO, NICOLA K 786.50 Chest Pain 06/27/2012 ROEL STATE INSPECTOR, GODWIN 785.1 Palpitations 06/27/2012 ROEL STATE INSPECTOR, GODWIN 786.05 Shortness Of Breath 06/27/2012 ROEL STATE INSPECTOR, GODWIN 786.50 Chest Pain 06/27/2012 ROEL STATE INSPECTOR, GODWIN 785.1 Palpitations 06/27/2012 ROEL STATE INSPECTOR, GODWIN 786.05 Shortness Of Breath 06/27/2012 ROEL STATE INSPECTOR, GODWIN 786.50 Chest Pain 08/07/2012 WOLF JAMA [...] F 617.9 ENDOMETRIOSIS SITE UNSPECIFIED 08/07/2012 JASON SOLNAO DO F 625.9 Pelvic Pain 08/07/2012 JASON [...] B (adult) Dx 08/07/2012 NICOLA MANUEL DO V76.2 Cervical Cancer Screening (pap Smear) 08/07/2012 [...] MD V05.3 Hep B (adult) Dx 08/07/2012 OWLF JAMA MD V76.2 Cervical Cancer Screening (pap Smear) 08/07/2012 MANUEL DO NICOLA K 617.9 ENDOMETRIOSIS SITE UNSPECIFIED 08/07/2012 MANUEL DO, NICOLA K 625.9 Pelvic Pain 08/07/2012 MANUEL DO, NICOLA K V05.3 Hep B (adult) Dx 08/07/2012 MANUEL NICOLA K V76.2 Cervical Cancer Screening (pap Smear) 08/07/2012 WHITE DDS, KELY J 617.9 ENDOMETRIOSIS SITE UNSPECIFIED 08/07/2012 WHITE DDS, KELY J 625.9 Pelvic Pain 08/07/2012 WHITE DDS, KELY J V05.3 Hep B (adult) Dx 08/07/2012 WHITE DDS, KELY J V76.2 Cervical Cancer [...] Cervical Cancer Screening (pap Smear) 08/07/2012 [employer] INSPECTOR, GODWIN 617.9 ENDOMETRIOSIS SITE UNSPECIFIED 08/07/2012 [employer] INSPECTOR, GODWIN 625.9 Pelvic Pain 08/07/2012 [employer] INSPECTOR, GODWIN V05.3 Hep B (adult) Dx 08/07/2012 [employer] INSPECTOR, GODWIN V76.2 Cervical Cancer Screening (pap Smear) 08/07/2012 MADL STATE INSPECTOR, FLO L 617.9 ENDOMETRIOSIS SITE UNSPECIFIED 08/07/2012 MAD[employer] STATE INSPECTOR, FLO L 625.9 Pelvic Pain 08/07/2012 MAD[employer] STATE INSPECTOR, FLO L V05.3 Hep B (adult) Dx 08/07/2012 MAD[employer] STATE INSPECTOR, FLO L V76.2 Cervical Cancer Screening (pap Smear) 08/07/2012 [employer] INSPECTOR, GODWIN 617.9 ENDOMETRIOSIS SITE UNSPECIFIED 08/07/2012 [employer] INSPECTOR, GODWIN 625.9 Pelvic Pain 08/07/2012 [employer] STATE INSPECTOR, GODWIN V05.3 Hep B (adult) Dx 08/07/2012 [employer] INSPECTOR, GODWIN V76.2 Cervical Cancer Screening (pap Smear) 08/07/2012 MADL STATE INSPECTOR, FLO L 617.9 ENDOMETRIOSIS SITE UNSPECIFIED 08/07/2012 MAD[employer] STATE INSPECTOR, FLO L 625.9 Pelvic Pain 08/07/2012 MAD[employer] STATE INSPECTOR, FLO L V05.3 Hep B (adult) Dx 08/07/2012 M[employer] STATE INSPECTOR, FLO L V76.2 Cervical Cancer Screening (pap Smear) 08/07/2012 [employer] INSPECTOR, GODWIN 617.9 ENDOMETRIOSIS SITE UNSPECIFIED 08/07/2012 [employer] INSPECTOR, GODWIN 625.9 Pelvic Pain 08/07/2012 [employer] INSPECTOR, GODWIN V05.3 Hep B (adult) Dx 08/07/2012 [employer] INSPECTOR, GODWIN V76.2 Cervical Cancer Screening (pap Smear) 08/07/2012 [employer] INSPECTOR, GODWIN 617.9 ENDOMETRIOSIS SITE UNSPECIFIED 08/07/2012 ROEL STATE INSPECTOR, GODWIN 625.9 Pelvic Pain 08/07/2012 ROEL STATE INSPECTOR, GODWIN V05.3 Hep B (adult) Dx 08/07/2012 ROEL STATE INSPECTOR, GODWIN V76.2 Cervical Cancer Screening (pap Smear) 08/07/2012 MADL STATE INSPECTOR, FLO L 617.9 ENDOMETRIOSIS SITE UNSPECIFIED 08/07/2012 MADL STATE INSPECTOR, FLO L 625.9 Pelvic Pain 08/07/2012 MADL STATE INSPECTOR, FLO L V05.3 Hep B (adult) Dx 08/07/2012 MADL STATE INSPECTOR, FLO L V76.2 Cervical Cancer Screening (pap Smear) 08/07/2012 MADL STATE INSPECTOR, FLO L 617.9 ENDOMETRIOSIS SITE UNSPECIFIED 08/07/2012 MADL STATE INSPECTOR, FLO L 625.9 Pelvic Pain 08/07/2012 MADL STATE INSPECTOR, FLO L V05.3 Hep B (adult) Dx 08/07/2012 MADL STATE INSPECTOR, FLO L V76.2 Cervical Cancer Screening (pap Smear) 08/07/2012 ROEL STATE INSPECTOR, GODWIN 617.9 ENDOMETRIOSIS SITE UNSPECIFIED 08/07/2012 ROEL STATE INSPECTOR, GODWIN 625.9 Pelvic Pain 08/07/2012 ROEL STATE INSPECTOR, GODWIN V05.3 Hep B (adult) Dx 08/07/2012 ROEL STATE INSPECTOR, GODWIN V76.2 Cervical Cancer Screening (pap Smear) 08/07/2012 SONNY STATE INSPECTOR, ELIAS A 617.9 ENDOMETRIOSIS SITE UNSPECIFIED 08/07/2012 SONNY STATE INSPECTOR, ELIAS A 625.9 Pelvic Pain 08/07/2012 SONNY STATE INSPECTOR, ELIAS A V05.3 Hep B (adult) Dx 08/07/2012 SONNY STATE INSPECTOR, ELIAS A V76.2 Cervical Cancer Screening (pap Smear) 08/07/2012 [facility], DEMOND R 617.9 ENDOMETRIOSIS SITE UNSPECIFIED 08/07/2012 [facility], DEMOND R 625.9 Pelvic Pain 08/07/2012 [facility], DEMOND R V05.3 Hep B (adult) Dx 08/07/2012 [facility], DEMOND R V76.2 Cervical Cancer Screening (pap Smear) 08/07/2012 MADL STATE INSPECTOR, FLO L 617.9 ENDOMETRIOSIS SITE UNSPECIFIED 08/07/2012 MADL STATE INSPECTOR, FLO L 625.9 Pelvic Pain 08/07/2012 MADL STATE INSPECTOR, FLO L V05.3 Hep B (adult) Dx 08/07/2012 MADL STATE INSPECTOR, FLO L V76.2 Cervical Cancer Screening (pap Smear) 08/07/2012 NUSRAT DDS, JOSE 617.9 ENDOMETRIOSIS SITE UNSPECIFIED 08/07/2012 SILVERIO DDS, JOSE 625.9 Pelvic Pain 08/07/2012 SILVERIO DDS, JOSE V05.3 Hep B (adult) Dx 08/07/2012 SILVERIO DDS, JOSE V76.2 Cervical Cancer Screening (pap Smear) 08/07/2012 [facility], DEMOND R 617.9 ENDOMETRIOSIS SITE UNSPECIFIED 08/07/2012 [facility], DEMOND R 625.9 Pelvic Pain 08/07/2012 [facility] DEMOND R V05.3 Hep B (adult) Dx 08/07/2012 [facility], DEMOND R V76.2 Cervical Cancer Screening (pap Smear) 08/07/2012 [facility] DEMOND R 617.9 ENDOMETRIOSIS SITE UNSPECIFIED 08/07/2012 [facility] DEMOND R 625.9 Pelvic Pain 08/07/2012 [facility] DEMOND R V05.3 Hep B (adult) Dx 08/07/2012 [facility], DEMOND R V76.2 Cervical Cancer Screening (pap Smear) 08/07/2012 ROEL STATE INSPECTOR, GODWIN 617.9 ENDOMETRIOSIS SITE UNSPECIFIED 08/07/2012 ROEL STATE INSPECTOR, GODWIN 625.9 Pelvic Pain 08/07/2012 ROEL STATE INSPECTOR, GODWIN V05.3 Hep B (adult) Dx 08/07/2012 ROEL STATE INSPECTOR, GODWIN V76.2 Cervical Cancer Screening (pap Smear) 08/07/2012 MANUEL DOMARALA K 617.9 ENDOMETRIOSIS SITE UNSPECIFIED 08/07/2012 MANUEL DO NICOLA K 625.9 Pelvic Pain 08/07/2012 MANUEL DOMARALA K V05.3 Hep B (adult) Dx 08/07/2012 MANUEL DO, NICOLA K V76.2 Cervical Cancer Screening (pap Smear) 08/07/2012 ROEL STATE INSPECTOR, GODWIN 617.9 ENDOMETRIOSIS SITE UNSPECIFIED 08/07/2012 ROEL STATE INSPECTOR, GODWIN 625.9 Pelvic Pain 08/07/2012 ROEL STATE INSPECTOR, GODWIN V05.3 Hep B (adult) Dx 08/07/2012 ROEL STATE INSPECTOR, GODWIN V76.2 Cervical Cancer Screening (pap Smear) 08/07/2012 ROEL STATE INSPECTOR, GODWIN 617.9 ENDOMETRIOSIS SITE UNSPECIFIED 08/07/2012 ROEL STATE INSPECTOR, GODWIN 625.9 Pelvic Pain 08/07/2012 ROEL STATE INSPECTOR, GODWIN V05.3 Hep B (adult) Dx 08/07/2012 ROEL STATE INSPECTOR, GODWIN V76.2 Cervical Cancer Screening (pap Smear) [...] GASTROENTERITIS AND COLITIS 09/28/2012 NICOLA MANUEL DO K 558.9 OTHER AND UNSPECIFIED NONINFECTIOUS GASTROENTERITIS AND COLITIS 09/28/2012 JASON HUNTER APRN 558.9 OTHER AND UNSPECIFIED NONINFECTIOUS GASTROENTERITIS AND COLITIS 09/28/2012 WOLF JAMA MD 558.9 OTHER AND UNSPECIFIED NONINFECTIOUS GASTROENTERITIS AND COLITIS 09/28/2012 NICOLA MANUEL DO K 558.9 OTHER AND UNSPECIFIED NONINFECTIOUS GASTROENTERITIS AND COLITIS 09/28/2012 IDALIA DDS, KELY Dickens 558.9 OTHER AND UNSPECIFIED NONINFECTIOUS GASTROENTERITIS AND COLITIS 09/28/2012 JASON HUNTER APRN D 558.9 OTHER AND UNSPECIFIED NONINFECTIOUS GASTROENTERITIS AND COLITIS 09/28/2012 JASON HUNTER APRN 558.9 OTHER AND UNSPECIFIED NONINFECTIOUS GASTROENTERITIS AND COLITIS 09/28/2012 JASON HUNTER APRN D 558.9 OTHER AND UNSPECIFIED NONINFECTIOUS GASTROENTERITIS AND COLITIS 09/28/2012 WOLF JAMA MD 558.9 OTHER AND UNSPECIFIED NONINFECTIOUS GASTROENTERITIS AND COLITIS 09/28/2012 ROEL STATE INSPECTOR, GODWIN 558.9 OTHER AND UNSPECIFIED NONINFECTIOUS GASTROENTERITIS AND COLITIS 09/28/2012 ROSITA GONZALEZ APRNA L 558.9 OTHER AND UNSPECIFIED NONINFECTIOUS GASTROENTERITIS AND COLITIS 09/28/2012 ROEL STATE INSPECTOR, GODWIN 558.9 OTHER AND UNSPECIFIED NONINFECTIOUS GASTROENTERITIS AND COLITIS 09/28/2012 ROSITA GONZALEZ APRNA L 558.9 OTHER AND UNSPECIFIED NONINFECTIOUS GASTROENTERITIS AND COLITIS 09/28/2012 ROEL STATE INSPECTOR, GODWIN 558.9 OTHER AND UNSPECIFIED NONINFECTIOUS GASTROENTERITIS AND COLITIS 09/28/2012 ROEL STATE INSPECTOR, GODWIN 558.9 OTHER AND UNSPECIFIED NONINFECTIOUS GASTROENTERITIS AND COLITIS 09/28/2012 LISA MENG FLO L 558.9 OTHER AND UNSPECIFIED NONINFECTIOUS GASTROENTERITIS AND COLITIS 09/28/2012 BRYANL TAQUERIA FLO L 558.9 OTHER AND UNSPECIFIED NONINFECTIOUS GASTROENTERITIS AND COLITIS 09/28/2012 ROEL STATE INSPECTOR, GODWIN 558.9 OTHER AND UNSPECIFIED NONINFECTIOUS GASTROENTERITIS AND COLITIS 09/28/2012 ELIAS DENNIS APRN 558.9 OTHER AND UNSPECIFIED NONINFECTIOUS GASTROENTERITIS AND COLITIS 09/28/2012 [facility], DEMOND R 558.9 OTHER AND UNSPECIFIED NONINFECTIOUS GASTROENTERITIS AND COLITIS 09/28/2012 LISA MENG FLO L 558.9 OTHER AND UNSPECIFIED NONINFECTIOUS GASTROENTERITIS AND COLITIS 09/28/2012 JOSE SILVERIO DDS 558.9 OTHER AND UNSPECIFIED NONINFECTIOUS GASTROENTERITIS AND COLITIS 09/28/2012 [facility], DEMOND R 558.9 OTHER AND UNSPECIFIED NONINFECTIOUS GASTROENTERITIS AND COLITIS 09/28/2012 [facility], DEMOND R 558.9 OTHER AND UNSPECIFIED NONINFECTIOUS GASTROENTERITIS AND COLITIS 09/28/2012 ROELGODWIN VARGAS APRN 558.9 OTHER AND UNSPECIFIED NONINFECTIOUS GASTROENTERITIS AND COLITIS 09/28/2012 NICOLA MANUEL DO 558.9 OTHER AND UNSPECIFIED NONINFECTIOUS GASTROENTERITIS AND COLITIS 09/28/2012 ROELSAM MENG GODWIN 558.9 OTHER AND UNSPECIFIED NONINFECTIOUS GASTROENTERITIS AND COLITIS 09/28/2012 ROEL STATE INSPECTOR, GODWIN 558.9 OTHER AND UNSPECIFIED NONINFECTIOUS GASTROENTERITIS [...] 11/29/2012 NICOLA MANUEL DO 626.0 AMENORRHEA 11/29/2012 IDALIA BAKER KELY J 626.0 AMENORRHEA 11/29/2012 JASON HUNTER APRN 626.0 AMENORRHEA 11/29/2012 JASON HUNTER APRN 626.0 AMENORRHEA 11/29/2012 JASON HUNTER APRN 626.0 AMENORRHEA 11/29/2012 WOLF JAMA MD 626.0 AMENORRHEA 11/29/2012 ROEL STATE INSPECTOR, GODWIN 626.0 AMENORRHEA 11/29/2012 MADL STATE INSPECTOR, FLO L 626.0 AMENORRHEA 11/29/2012 ROEL STATE INSPECTOR, GODWIN 626.0 AMENORRHEA 11/29/2012 MADL STATE INSPECTOR, FLO L 626.0 AMENORRHEA 11/29/2012 ROEL STATE INSPECTOR, GODWIN 626.0 AMENORRHEA 11/29/2012 ROEL STATE INSPECTOR, GODWIN 626.0 AMENORRHEA 11/29/2012 MADL STATE INSPECTOR, FLO L 626.0 AMENORRHEA 11/29/2012 MADL STATE INSPECTOR, FLO L 626.0 AMENORRHEA 11/29/2012 ROEL STATE INSPECTOR, GODWIN 626.0 AMENORRHEA 11/29/2012 SONNY MENG ELIAS A 626.0 AMENORRHEA 11/29/2012 [facility], DEMOND R 626.0 AMENORRHEA 11/29/2012 MADL STATE INSPECTOR, FLO L 626.0 AMENORRHEA 11/29/2012 JOSE SILVERIO DDS 626.0 AMENORRHEA 11/29/2012 [facility], DEMOND R 626.0 AMENORRHEA 11/29/2012 [facility], DEMOND R 626.0 AMENORRHEA 11/29/2012 ROEL STATE INSPECTOR, GODWIN 626.0 AMENORRHEA 11/29/2012 NICOLA MANUEL DO 626.0 AMENORRHEA 11/29/2012 ROEL STATE INSPECTOR, GODWIN 626.0 AMENORRHEA 11/29/2012 ROEL STATE INSPECTOR, GODWIN 626.0 AMENORRHEA 12/08/2012 Ot 723.1 CERVICALGIA 12/08/2012 Ot 723.4 BRACHIAL NEURITIS NOS 12/11/2012 Ot 723.1 CERVICALGIA 12/11/2012 Ot 724.1 PAIN IN THORACIC SPINE 01/16/2013 MARAL MANUEL DOA K 305.1 TOBACCO ABUSE 01/16/2013 MAR BLANTONNICOLA K 626.1 OLIGOMENORRHEA 01/16/2013 MAR BLANTONNICOLA K V73.81 HPV SCREENING 01/16/2013 MARAL MANUEL DOA K V74.5 STD SCREEN 01/16/2013 INCOLA MANUEL DO K V76.2 CERVICAL CANCER SCREENING (PAP SMEAR) 01/16/2013 JASON SOLANO DO F 305.1 TOBACCO ABUSE 01/16/2013 JASON SOLANO DO F 626.1 OLIGOMENORRHEA 01/16/2013 JASON SOLANO DO F V73.81 HPV SCREENING 01/16/2013 XIOMARA BLANTON JASON F V74.5 STD SCREEN 01/16/2013 XIOMARA BLANTON [...] SCREENING (PAP SMEAR) 01/16/2013 NICOLA MANUEL DO 305.1 TOBACCO ABUSE 01/16/2013 NICOLA MANUEL DO 626.1 OLIGOMENORRHEA 01/16/2013 NICOLA MANUEL DO V73.81 HPV SCREENING 01/16/2013 NICOLA MANUEL DO V74.5 STD SCREEN 01/16/2013 NICOLA MANUEL DO V76.2 CERVICAL CANCER SCREENING (PAP [...] SCREENING (PAP SMEAR) 01/16/2013 NICOLA MANUEL DO 305.1 TOBACCO ABUSE 01/16/2013 MARAL MANUEL DOA K 626.1 OLIGOMENORRHEA 01/16/2013 MARAL MANUEL DOA K V73.81 HPV SCREENING 01/16/2013 MARAL MANUEL DOA K V74.5 STD SCREEN 01/16/2013 NICOLA MANUEL DO K V76.2 CERVICAL CANCER SCREENING (PAP SMEAR) 01/16/2013 IDALIA JENKINSSKELY J 305.1 TOBACCO ABUSE 01/16/2013 IDALIA JENKINSSKELY J 626.1 OLIGOMENORRHEA 01/16/2013 IDALIA JENKINSSKELY V73.81 HPV [...] MENG FLO L 626.1 OLIGOMENORRHEA 01/16/2013 LISA MENG FLO L V73.81 HPV SCREENING 01/16/2013 EARNESTINE GONZALEZ APRNNYA L V74.5 STD SCREEN 01/16/2013 EARNESTINE GONZALEZ APRNNYA L V76.2 CERVICAL CANCER SCREENING (PAP SMEAR) 01/16/2013 ROEL MENG GODWIN 305.1 TOBACCO ABUSE 01/16/2013 ROEL MENG GODWIN 626.1 OLIGOMENORRHEA 01/16/2013 ROEL STATE INSPECTOR, GODWIN V73.81 HPV SCREENING 01/16/2013 ROEL STATE INSPECTOR, GODWIN V74.5 STD SCREEN 01/16/2013 ROEL STATE INSPECTOR, GODWIN V76.2 CERVICAL CANCER SCREENING (PAP SMEAR) 01/16/2013 MADL STATE INSPECTOR, FLO L 305.1 TOBACCO ABUSE 01/16/2013 MADL STATE INSPECTOR, FLO L 626.1 OLIGOMENORRHEA 01/16/2013 MADL STATE INSPECTOR, FLO L V73.81 HPV SCREENING 01/16/2013 MADL STATE INSPECTOR, FLO L V74.5 STD SCREEN 01/16/2013 MADL STATE INSPECTOR, FLO L V76.2 CERVICAL CANCER SCREENING (PAP SMEAR) 01/16/2013 ROEL STATE INSPECTOR, GODWIN 305.1 TOBACCO ABUSE 01/16/2013 ROEL STATE INSPECTOR, GODWIN 626.1 OLIGOMENORRHEA 01/16/2013 ROEL STATE INSPECTOR, GODWIN V73.81 HPV SCREENING 01/16/2013 ROEL STATE INSPECTOR, GODWIN V74.5 STD SCREEN 01/16/2013 ROEL STATE INSPECTOR GODWIN V76.2 CERVICAL CANCER SCREENING (PAP SMEAR) 01/16/2013 ROEL STATE INSPECTOR, GODWIN 305.1 TOBACCO ABUSE 01/16/2013 ROEL STATE INSPECTOR, GODWIN 626.1 OLIGOMENORRHEA 01/16/2013 ROEL STATE INSPECTOR, GODWIN V73.81 HPV SCREENING 01/16/2013 ROEL STATE INSPECTOR, GODWIN V74.5 STD SCREEN 01/16/2013 ROEL STATE INSPECTOR, GODWIN V76.2 CERVICAL CANCER SCREENING (PAP SMEAR) 01/16/2013 MAD STATE INSPECTOR, FLO L 305.1 TOBACCO ABUSE 01/16/2013 MADL STATE INSPECTOR, FLO L 626.1 OLIGOMENORRHEA 01/16/2013 MADL STATE INSPECTOR, FLO L V73.81 HPV SCREENING 01/16/2013 MADL STATE INSPECTOR, FLO L V74.5 STD SCREEN 01/16/2013 MADL STATE INSPECTOR, FLO L V76.2 CERVICAL CANCER SCREENING (PAP SMEAR) 01/16/2013 MADL STATE INSPECTOR, FLO L 305.1 TOBACCO ABUSE 01/16/2013 MADL STATE INSPECTOR, FLO L 626.1 OLIGOMENORRHEA 01/16/2013 MADL STATE INSPECTOR, FLO L V73.81 HPV SCREENING 01/16/2013 MADL STATE INSPECTOR, FLO L V74.5 STD SCREEN 01/16/2013 MADL STATE INSPECTOR, FLO L V76.2 CERVICAL CANCER SCREENING (PAP SMEAR) 01/16/2013 ROEL STATE INSPECTOR, GODWIN 305.1 TOBACCO ABUSE 01/16/2013 ROEL STATE INSPECTOR, GODWIN 626.1 OLIGOMENORRHEA 01/16/2013 ROEL STATE INSPECTOR, GODWIN V73.81 HPV SCREENING 01/16/2013 ROEL STATE INSPECTOR, GODWIN V74.5 STD SCREEN 01/16/2013 ROEL STATE INSPECTOR, GODWIN V76.2 CERVICAL CANCER SCREENING (PAP SMEAR) 01/16/2013 SONNY APRN, ELIAS A 305.1 TOBACCO ABUSE 01/16/2013 SONNY STATE INSPECTOR, ELIAS A 626.1 OLIGOMENORRHEA 01/16/2013 SONNY STATE INSPECTOR, ELIAS A V73.81 HPV SCREENING 01/16/2013 SONNY STATE INSPECTOR, ELIAS A V74.5 STD SCREEN 01/16/2013 SONNY STATE INSPECTOR, ELIAS A V76.2 CERVICAL CANCER SCREENING (PAP SMEAR) 01/16/2013 [facility], DEMOND R 305.1 TOBACCO ABUSE 01/16/2013 [facility], DEMOND R 626.1 OLIGOMENORRHEA 01/16/2013 [facility], DEMOND R V73.81 HPV SCREENING 01/16/2013 [facility], DEMOND R V74.5 STD SCREEN 01/16/2013 [facility], DEMOND R V76.2 CERVICAL CANCER SCREENING (PAP SMEAR) 01/16/2013 BRYAN STATE INSPECTOR, FLO L 305.1 TOBACCO ABUSE 01/16/2013 MADL STATE INSPECTOR, FLO L 626.1 OLIGOMENORRHEA 01/16/2013 MADL STATE INSPECTOR, FLO L V73.81 HPV SCREENING 01/16/2013 MADL STATE INSPECTOR, FLO L V74.5 STD SCREEN 01/16/2013 MADL STATE INSPECTOR, FLO L V76.2 CERVICAL CANCER SCREENING (PAP SMEAR) 01/16/2013 JOSE SILVERIO DDS 305.1 TOBACCO ABUSE 01/16/2013 JOSE SILVERIO DDS 626.1 OLIGOMENORRHEA 01/16/2013 SILVERIO DDS, JOSE V73.81 HPV SCREENING 01/16/2013 SILVERIO DDS, JOSE V74.5 STD SCREEN 01/16/2013 SILVERIO DDS, JOSE V76.2 CERVICAL CANCER SCREENING (PAP SMEAR) 01/16/2013 [facility], DEMOND R 305.1 TOBACCO ABUSE 01/16/2013 [facility], DEMOND R 626.1 OLIGOMENORRHEA 01/16/2013 [facility], DEMOND R V73.81 HPV SCREENING 01/16/2013 [facility], DEMOND R V74.5 STD SCREEN 01/16/2013 [facility], DEMOND R V76.2 CERVICAL CANCER SCREENING (PAP SMEAR) 01/16/2013 [facility], DEMOND R 305.1 TOBACCO ABUSE 01/16/2013 [facility], DEMOND R 626.1 OLIGOMENORRHEA 01/16/2013 [facility], DEMOND R V73.81 HPV SCREENING 01/16/2013 [facility], DEMOND R V74.5 STD SCREEN 01/16/2013 [facility], DEMOND R V76.2 CERVICAL CANCER SCREENING (PAP SMEAR) 01/16/2013 ROEL STATE INSPECTOR, GODWIN 305.1 TOBACCO ABUSE 01/16/2013 ROEL STATE INSPECTOR, GODWIN 626.1 OLIGOMENORRHEA 01/16/2013 ROEL STATE INSPECTOR, GODWIN V73.81 HPV SCREENING 01/16/2013 ROEL STATE INSPECTOR, GODWIN V74.5 STD SCREEN 01/16/2013 ROEL STATE INSPECTOR, GODWIN V76.2 CERVICAL CANCER SCREENING (PAP SMEAR) 01/16/2013 NICOLA MANUEL DO K 305.1 TOBACCO ABUSE 01/16/2013 MAR BLANTON NICOLA K 626.1 OLIGOMENORRHEA 01/16/2013 MANUEL DO NICOLA K V73.81 HPV SCREENING 01/16/2013 MAR BLANTON NICOLA K V74.5 STD SCREEN 01/16/2013 MANUEL DO NICOLA K V76.2 CERVICAL CANCER SCREENING (PAP SMEAR) 01/16/2013 ROEL STATE INSPECTOR, GODWIN 305.1 TOBACCO ABUSE 01/16/2013 ROEL STATE INSPECTOR, GODWIN 626.1 OLIGOMENORRHEA 01/16/2013 ROEL STATE INSPECTOR, GODWIN V73.81 HPV SCREENING 01/16/2013 ROEL STATE INSPECTOR, GODWIN V74.5 STD SCREEN 01/16/2013 ROEL STATE INSPECTOR, GODWIN V76.2 CERVICAL CANCER SCREENING (PAP SMEAR) 01/16/2013 ROEL STATE INSPECTOR, GODWIN 305.1 TOBACCO ABUSE 01/16/2013 ROEL STATE INSPECTOR, GODWIN 626.1 OLIGOMENORRHEA 01/16/2013 ROEL STATE INSPECTOR, GODWIN V73.81 HPV SCREENING 01/16/2013 ROEL STATE INSPECTOR, GODWIN V74.5 STD SCREEN 01/16/2013 ROEL STATE INSPECTOR, GODWIN V76.2 CERVICAL CANCER SCREENING (PAP SMEAR) [...] JAMA MD 296.90 MOOD DISORDER NOS 01/24/2013 ROEL MENG GODWIN 296.90 MOOD DISORDER NOS 01/24/2013 FLO GONZALEZ APRN 296.90 MOOD DISORDER NOS 01/24/2013 ROEL STATE INSPECTOR, GODWIN 296.90 MOOD DISORDER NOS 01/24/2013 MADL STATE INSPECTOR, FLO L 296.90 MOOD DISORDER NOS 01/24/2013 ROEL STATE INSPECTOR, GODWIN 296.90 MOOD DISORDER NOS 01/24/2013 ROEL STATE INSPECTOR, GODWIN 296.90 MOOD DISORDER NOS 01/24/2013 MADL STATE INSPECTOR, FLO L 296.90 MOOD DISORDER NOS 01/24/2013 MADL STATE INSPECTOR, FLO L 296.90 MOOD DISORDER NOS 01/24/2013 ROEL STATE INSPECTOR, GODWIN 296.90 MOOD DISORDER NOS 01/24/2013 SONNY STATE INSPECTOR, ELIAS A 296.90 MOOD DISORDER NOS 01/24/2013 [facility], DEMOND R 296.90 MOOD DISORDER NOS 01/24/2013 MADL STATE INSPECTOR, FLO L 296.90 MOOD DISORDER NOS 01/24/2013 NUSRAT S, JOSE 296.90 MOOD DISORDER NOS 01/24/2013 [facility], DEMOND R 296.90 MOOD DISORDER NOS 01/24/2013 [facility], DEMOND R 296.90 MOOD DISORDER NOS 01/24/2013 ROEL STATE INSPECTOR, GODWIN 296.90 MOOD DISORDER NOS 01/24/2013 NICOLA MANUEL DO 296.90 MOOD DISORDER NOS 01/24/2013 ROEL STATE INSPECTOR, GODWIN 296.90 MOOD DISORDER NOS 01/24/2013 ROEL STATE INSPECTOR, GODWIN 296.90 MOOD DISORDER NOS 02/13/2013 787.02 [...] JASON HUNTER APRN 787.02 NAUSEA ALONE 02/13/2013 EVITA JONES, WOLF 787.02 NAUSEA ALONE 02/13/2013 MANUEL DO, NICOLA K 787.02 NAUSEA ALONE 02/13/2013 KELY FRIEDMAN DDS 787.02 NAUSEA ALONE 02/13/2013 JASON HUNTER APRN 787.02 NAUSEA ALONE 02/13/2013 JASON HUNTER APRN 787.02 NAUSEA ALONE 02/13/2013 JASON HUNTER APRN 787.02 NAUSEA ALONE 02/13/2013 WOLF JAMA MD 787.02 NAUSEA ALONE 02/13/2013 ROEL STATE INSPECTOR, GODWIN 787.02 NAUSEA ALONE 02/13/2013 MADL STATE INSPECTOR, FLO L 787.02 NAUSEA ALONE 02/13/2013 ROEL STATE INSPECTOR, GODWIN 787.02 NAUSEA ALONE 02/13/2013 MADL STATE INSPECTOR, FLO L 787.02 NAUSEA ALONE 02/13/2013 ROEL STATE INSPECTOR, GODWIN 787.02 NAUSEA ALONE 02/13/2013 ROEL STATE INSPECTOR, GODWIN 787.02 NAUSEA ALONE 02/13/2013 MADL STATE INSPECTOR, FLO L 787.02 NAUSEA ALONE 02/13/2013 MADL STATE INSPECTOR, FLO L 787.02 NAUSEA ALONE 02/13/2013 ROEL STATE INSPECTOR, GODWIN 787.02 NAUSEA ALONE 02/13/2013 ELIAS DENNIS APRN 787.02 NAUSEA ALONE 02/13/2013 [facility], DEMOND R 787.02 NAUSEA ALONE 02/13/2013 MADL STATE INSPECTOR, FLO L 787.02 NAUSEA ALONE 02/13/2013 JOSE SILVERIO DDS 787.02 NAUSEA ALONE 02/13/2013 [facility], DEMOND R 787.02 NAUSEA ALONE 02/13/2013 [facility], DEMOND R 787.02 NAUSEA ALONE 02/13/2013 ROEL STATE INSPECTOR, GODWIN 787.02 NAUSEA ALONE 02/13/2013 NICOLA MANUEL DO 787.02 NAUSEA ALONE 02/13/2013 ROEL STATE INSPECTOR, GODWIN 787.02 NAUSEA ALONE 02/13/2013 ROEL STATE INSPECTOR, GODWIN 787.02 NAUSEA ALONE 03/23/2013 309.81 AN PTSD 03/23/2013 309.81 AN PTSD 03/23/2013 309.81 AN PTSD 03/23/2013 309.81 AN PTSD 03/23/2013 309.81 AN PTSD 03/23/2013 309.81 AN PTSD 03/23/2013 309.81 AN PTSD 03/23/2013 NICOLA MANUEL DO 309.81 AN PTSD 03/23/2013 JASON HUNTER APRN D 309.81 AN PTSD 03/23/2013 WOLF JAMA MD 309.81 AN PTSD 03/23/2013 NICOLA MANUEL DO K 309.81 AN PTSD 03/23/2013 KELY FRIEDMAN DDS 309.81 AN PTSD 03/23/2013 JASON HUNTER APRN D 309.81 AN PTSD 03/23/2013 JASON HUNTER APRN D 309.81 AN PTSD 03/23/2013 JASON HUNTER APRN D 309.81 AN PTSD 03/23/2013 WOLF JAMA MD 309.81 AN PTSD 03/23/2013 [employer], GODWIN 309.81 AN PTSD 03/23/2013 [employer] INSPECT[employer], FLO L 309.81 AN PTSD 03/23/2013 [employer] INSPECTOR, GODWIN 309.81 AN PTSD 03/23/2013 [employer] INSPECTOR, FLO L 309.81 AN PTSD 03/23/2013 [employer] INSPECTOR, GODWIN 309.81 AN PTSD 03/23/2013 [employer] INSPECTOR, GODWIN 309.81 AN PTSD 03/23/2013 [employer] INSPECTOR, FLO L 309.81 AN PTSD 03/23/2013 M[employer] INSPECTOR, FLO L 309.81 AN PTSD 03/23/2013 [employer] INSPECTOR, GODWIN 309.81 AN PTSD 03/23/2013 SONNY [employer] INSPECTOR, ELIAS A 309.81 AN PTSD 03/23/2013 [facility], DEMOND R 309.81 AN PTSD 03/23/2013 M[employer] STATE INSPECTOR, FLO L 309.81 AN PTSD 03/23/2013 JOSE SILVERIO DDS 309.81 AN PTSD 03/23/2013 [facility], DEMOND R 309.81 AN PTSD 03/23/2013 [facility], DEMOND R 309.81 AN PTSD 03/23/2013 [employer] INS[employer], GODWIN 309.81 AN PTSD 03/23/2013 NICOLA MANUEL DO 309.81 AN PTSD 03/23/2013 GODWIN SEVILLA APRN 309.81 AN PTSD 03/23/2013 GODWIN SEVILLA APRN 309.81 AN PTSD 04/20/2013 JESSIE ROBERTS MD Ot 427.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 04/20/2013 JESSIE ROBERTS MD Ot 785.1 PALPITATIONS 04/26/2013 724.2 LUMBAGO/ LOW [...] APRN 724.2 LUMBAGO/ LOW BACK PAIN 04/26/2013 ROSITA GONZALEZ APRNA L 724.2 LUMBAGO/ LOW BACK PAIN 04/26/2013 GODWIN SEVILLA APRN 724.2 LUMBAGO/ LOW BACK PAIN 04/26/2013 NARAYAN GONZALEZ APRNWNYA L 724.2 LUMBAGO/ LOW BACK PAIN 04/26/2013 GODWIN SEVILLA APRN 724.2 LUMBAGO/ LOW BACK PAIN 04/26/2013 [employer] INSPECTOR, GODWIN 724.2 LUMBAGO/ LOW BACK PAIN 04/26/2013 [employer] INSPECTOR, FLO L 724.2 LUMBAGO/ LOW BACK PAIN 04/26/2013 M[employer] STATE INSPECTOR, FLO L 724.2 LUMBAGO/ LOW BACK PAIN 04/26/2013 [employer] INSPECTOR, GODWIN 724.2 LUMBAGO/ LOW BACK PAIN 04/26/2013 [employer] INSPECTOR, ELIAS A 724.2 LUMBAGO/ LOW BACK PAIN 04/26/2013 [facility], DEMOND R 724.2 LUMBAGO/ LOW BACK PAIN 04/26/2013 M[employer] STATE INSPECTOR, FLO L 724.2 LUMBAGO/ LOW BACK PAIN 04/26/2013 JOSE SILVERIO DDS 724.2 LUMBAGO/ LOW BACK PAIN 04/26/2013 [facility], DEMOND R 724.2 LUMBAGO/ LOW BACK PAIN 04/26/2013 [facility], DEMOND R 724.2 LUMBAGO/ LOW BACK PAIN 04/26/2013 [employer] INSPECTOR, GODWIN 724.2 LUMBAGO/ LOW BACK PAIN 04/26/2013 MANUEL DO, NICOLA K 724.2 LUMBAGO/ LOW BACK PAIN 04/26/2013 [employer] INSPECTOR, GODWIN 724.2 LUMBAGO/ LOW BACK PAIN 04/26/2013 [employer]EL STATE INSPECTOR, GODWIN 724.2 LUMBAGO/ LOW BACK PAIN 04/29/2013 799.81 DECREASED LIBIDO 04/29/2013 V26.9 PROCREATIVE MANAGEMENT 04/29/2013 799.81 DECREASED LIBIDO 04/29/2013 V26.9 PROCREATIVE MANAGEMENT 04/29/2013 799.81 DECREASED LIBIDO 04/29/2013 V26.9 PROCREATIVE MANAGEMENT 04/29/2013 799.81 DECREASED LIBIDO 04/29/2013 V26.9 PROCREATIVE MANAGEMENT 04/29/2013 MANUEL DOMARALA K 799.81 DECREASED LIBIDO 04/29/2013 MANUEL DONICOLA K V26.9 PROCREATIVE MANAGEMENT 04/29/2013 JASON HUNTER [...] GODWIN SEVILLA APRN 799.81 DECREASED LIBIDO 04/29/2013 GODWIN SEVILLA APRN V26.9 PROCREATIVE MANAGEMENT 04/29/2013 FLO GONZALEZ APRN L 799.81 DECREASED LIBIDO 04/29/2013 ROSITA GONZALEZ APRNA L V26.9 PROCREATIVE MANAGEMENT 04/29/2013 ROEL MENG GODWIN 799.81 DECREASED LIBIDO 04/29/2013 [employer] INSPECTOR, GODWIN V26.9 PROCREATIVE MANAGEMENT 04/29/2013 NARAYAN GONZALEZ APRNWNYA L 799.81 DECREASED LIBIDO 04/29/2013 LISA MENG FLO L V26.9 PROCREATIVE MANAGEMENT 04/29/2013 ROEL MENG GODWIN 799.81 DECREASED LIBIDO 04/29/2013 ROEL MENG GODWIN V26.9 PROCREATIVE MANAGEMENT 04/29/2013 [employer]EL STATE INSPECTOR, GODWIN 799.81 DECREASED LIBIDO 04/29/2013 [employer]EL STATE INSPECTOR, GODWIN V26.9 PROCREATIVE MANAGEMENT 04/29/2013 [employer] INSPECTOR, FLO L 799.81 DECREASED LIBIDO 04/29/2013 [employer] INSPECTOR, FLO L V26.9 PROCREATIVE MANAGEMENT 04/29/2013 M[employer] STATE INSPECTOR, FLO L 799.81 DECREASED LIBIDO 04/29/2013 M[employer] STATE INSPECTOR, FLO L V26.9 PROCREATIVE MANAGEMENT 04/29/2013 [employer] INSPECTOR, GODWIN 799.81 DECREASED LIBIDO 04/29/2013 [employer] INSPECTOR, GODWIN V26.9 PROCREATIVE MANAGEMENT 04/29/2013 [employer] INSPECTOR, ELIAS A 799.81 DECREASED LIBIDO 04/29/2013 SONNY STATE INSPECTOR, ELIAS A V26.9 PROCREATIVE MANAGEMENT 04/29/2013 [facility], DEMOND R 799.81 DECREASED LIBIDO 04/29/2013 [facility], DEMOND R V26.9 PROCREATIVE MANAGEMENT 04/29/2013 MADL STATE INSPECTOR, FLO L 799.81 DECREASED LIBIDO 04/29/2013 MADL STATE INSPECTOR, FLO L V26.9 PROCREATIVE MANAGEMENT 04/29/2013 SILVERIO DDS, JOSE 799.81 DECREASED LIBIDO 04/29/2013 SILVERIO DDS, JOSE V26.9 PROCREATIVE MANAGEMENT 04/29/2013 [facility], DEMOND R 799.81 DECREASED LIBIDO 04/29/2013 [facility], DEMOND R V26.9 PROCREATIVE MANAGEMENT 04/29/2013 [facility], DEMOND R 799.81 DECREASED LIBIDO 04/29/2013 [facility], DEMOND R V26.9 PROCREATIVE MANAGEMENT 04/29/2013 ROEL STATE INSPECTOR, GODWIN 799.81 DECREASED LIBIDO 04/29/2013 ROEL STATE INSPECTOR, GODWIN V26.9 PROCREATIVE MANAGEMENT 04/29/2013 MANUEL DO, NICOLA K 799.81 DECREASED LIBIDO 04/29/2013 MANUEL DO, NICOLA K V26.9 PROCREATIVE MANAGEMENT 04/29/2013 ROEL STATE INSPECTOR, GODWIN 799.81 DECREASED LIBIDO 04/29/2013 ROEL STATE INSPECTOR, GODWIN V26.9 PROCREATIVE MANAGEMENT 04/29/2013 ROEL STATE INSPECTOR, GODWIN 799.81 DECREASED LIBIDO 04/29/2013 ROEL STATE INSPECTOR, GODWIN V26.9 PROCREATIVE MANAGEMENT 04/30/2013 MEJIA JONES, YAW R Ot 338.29 OTHER CHRONIC PAIN 04/30/2013 MEJIA JONES, YAW R Ot 724.2 LUMBAGO 05/17/2013 338.29 CHRONIC PAIN 05/17/2013 MANUEL DO, NICOLA K 338.29 CHRONIC PAIN 05/17/2013 JASON HUNTER APRN 338.29 CHRONIC PAIN 05/17/2013 WOLF JAMA MD 338.29 CHRONIC PAIN 05/17/2013 MANUEL DO, NICOLA K 338.29 CHRONIC PAIN 05/17/2013 IDALIA JENKINSS, KELY Dickens 338.29 CHRONIC PAIN 05/17/2013 JASON HUNTER APRN 338.29 CHRONIC PAIN 05/17/2013 JASON HUNTER APRN 338.29 CHRONIC PAIN 05/17/2013 JASON HUNTER APRN 338.29 CHRONIC PAIN 05/17/2013 WOLF JAMA MD 338.29 CHRONIC PAIN 05/17/2013 ROEL STATE INSPECTOR, GODWIN 338.29 CHRONIC PAIN 05/17/2013 MADL STATE INSPECTOR, FLO L 338.29 CHRONIC PAIN 05/17/2013 ROEL STATE INSPECTOR, GODWIN 338.29 CHRONIC PAIN 05/17/2013 MADL STATE INSPECTOR, FLO L 338.29 CHRONIC PAIN 05/17/2013 ROEL STATE INSPECTOR, GODWIN 338.29 CHRONIC PAIN 05/17/2013 ROEL STATE INSPECTOR, GODWIN 338.29 CHRONIC PAIN 05/17/2013 MADL STATE INSPECTOR, FLO L 338.29 CHRONIC PAIN 05/17/2013 MADL STATE INSPECTOR, FLO L 338.29 CHRONIC PAIN 05/17/2013 ROEL STATE INSPECTOR, GODWIN 338.29 CHRONIC PAIN 05/17/2013 SONNY MENG ELIAS A 338.29 CHRONIC PAIN 05/17/2013 [facility], DEMOND R 338.29 CHRONIC PAIN 05/17/2013 MADL STATE INSPECTOR, FLO L 338.29 CHRONIC PAIN 05/17/2013 NUSRAT JENKINSS, JOSE 338.29 CHRONIC PAIN 05/17/2013 [facility], DEMOND R 338.29 CHRONIC PAIN 05/17/2013 [facility], DEMOND R 338.29 CHRONIC PAIN 05/17/2013 ROEL STATE INSPECTOR, GODWIN 338.29 CHRONIC PAIN 05/17/2013 MANUEL DO, NICOLA K 338.29 CHRONIC PAIN 05/17/2013 ROEL STATE INSPECTOR, GODWIN 338.29 CHRONIC PAIN 05/17/2013 ROEL STATE INSPECTOR, GODWIN 338.29 CHRONIC PAIN 06/22/2013 V70.5 HEALTH [...] HEALTH EXAMINATION OF DEFINED SUBPOPULATIONS 06/22/2013 ROEL STATE INSPECTOR, GODWIN V70.5 HEALTH EXAMINATION OF DEFINED SUBPOPULATIONS 06/22/2013 MADL STATE INSPECTOR, FLO L V70.5 HEALTH EXAMINATION OF DEFINED SUBPOPULATIONS 06/22/2013 ROEL STATE INSPECTOR, GODWIN V70.5 HEALTH EXAMINATION OF DEFINED SUBPOPULATIONS 06/22/2013 MADL STATE INSPECTOR, FLO L V70.5 HEALTH EXAMINATION OF DEFINED SUBPOPULATIONS 06/22/2013 ROEL STATE INSPECTOR, GODWIN V70.5 HEALTH EXAMINATION OF DEFINED SUBPOPULATIONS 06/22/2013 ROEL STATE INSPECTOR, GODWIN V70.5 HEALTH EXAMINATION OF DEFINED SUBPOPULATIONS 06/22/2013 MADL STATE INSPECTOR, FLO L V70.5 HEALTH EXAMINATION OF DEFINED SUBPOPULATIONS 06/22/2013 MADL STATE INSPECTOR, FLO L V70.5 HEALTH EXAMINATION OF DEFINED SUBPOPULATIONS 06/22/2013 ROEL STATE INSPECTOR, GODWIN V70.5 HEALTH EXAMINATION OF DEFINED SUBPOPULATIONS 06/22/2013 ELIAS DENNIS APRN V70.5 HEALTH EXAMINATION OF DEFINED SUBPOPULATIONS 06/22/2013 [facility], DEMOND R V70.5 HEALTH EXAMINATION OF DEFINED SUBPOPULATIONS 06/22/2013 MADL STATE INSPECTOR, FLO L V70.5 HEALTH EXAMINATION OF DEFINED SUBPOPULATIONS 06/22/2013 JOSE SILVERIO DDS V70.5 HEALTH EXAMINATION OF DEFINED SUBPOPULATIONS 06/22/2013 [facility], DEMOND R V70.5 HEALTH EXAMINATION OF DEFINED SUBPOPULATIONS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 JENNIFER MAYES MD, Ot O47.02 FALSE LABOR BEFORE 37 COMPLETED WEEKS OF 09/14/2016 JENNIFER MAYES MD, Ot Z3A.26 26 WEEKS GESTATION OF 09/16/2016 JENNIFER MAYES MD, Ot O47.02 FALSE LABOR BEFORE 37 COMPLETED WEEKS OF 09/16/2016 JENNIFER MAYES MD, Ot Z3A.26 26 WEEKS GESTATION OF 10/07/2016 JENNIFER MAYES MD, Ot O36.0930 MATERNAL CARE FOR OTH RHESUS ISOIMMUN, T 10/07/2016 JENNIFER MAYES MD, Ot Z23 ENCOUNTER FOR IMMUNIZATION 10/07/2016 JENNIFER MAYES MD, Ot Z3A.00 WEEKS OF GESTATION OF NOT SPEC 10/20/2016 JENNIFER MAYES MD, Ot O36.0930 MATERNAL CARE FOR OTH RHESUS ISOIMMUN, T 10/20/2016 JENNIFER MAYES MD Ot Z23 ENCOUNTER FOR IMMUNIZATION 10/20/2016 JENNIFER MAYES MD, Ot Z3A.00 WEEKS OF GESTATION OF NOT SPEC 11/08/2016 JENNIFER MAYES MD, Ot O47.03 FALSE LABOR BEFORE 37 COMPLETED WEEKS OF 11/08/2016 JENNIFER MAYES MD, Ot Z3A.34 34 WEEKS GESTATION OF 11/10/2016 JENNIFER MAYES MD Ot O47.03 FALSE LABOR BEFORE 37 COMPLETED WEEKS OF 11/10/2016 JENNIFER MAYES MD, Ot Z3A.34 34 WEEKS GESTATION OF 11/14/2016 JENNIFER MAYES MD, Ot O47.03 FALSE LABOR BEFORE 37 COMPLETED WEEKS OF 11/14/2016 JENNIFER MAYES MD, Ot3A.34 34 WEEKS GESTATION OF 11/26/2016 JENNIFER MAYES MD, Ot O47.03 FALSE LABOR BEFORE 37 COMPLETED WEEKS OF 11/26/2016 JENNIFER MAYES MD, Ot3A.36 36 WEEKS GESTATION [...] Ot O99.89 OTH DISEASES AND CONDITIONS COMPL PREG/C 12/02/2016 SUNITA BERNAL Ot R00.2 PALPITATIONS 12/02/2016 SUNITA BERNAL Ot Z72.820 SLEEP DEPRIVATION 12/05/2016 SUNITA BERNAL Ot E86.9 VOLUME DEPLETION, UNSPECIFIED 12/05/2016 SUNITA BERNAL Ot F17.210 NICOTINE DEPENDENCE, CIGARETTES, UNCOMPL 12/05/2016 SUNITA BERNAL Ot K02.9 DENTAL CARIES, UNSPECIFIED 12/05/2016 SUNITA BERNAL Ot O99.89 OTH DISEASES AND CONDITIONS COMPL PREG/C 12/05/2016 SUNITA BERNAL Ot R00.2 PALPITATIONS 12/05/2016 SUNITA BERNAL Ot Z72.820 SLEEP DEPRIVATION 12/05/2016 SUNITA BERNAL Ot E86.9 VOLUME DEPLETION, UNSPECIFIED 12/05/2016 SUNITA BERNAL Ot F17.210 NICOTINE DEPENDENCE, CIGARETTES, UNCOMPL 12/05/2016 SUNITA BERNAL Ot K02.9 DENTAL CARIES, UNSPECIFIED 12/05/2016 SUNITA BERNAL Ot O99.89 OTH DISEASES AND CONDITIONS COMPL PREG/C 12/05/2016 SUNITA BERNAL Ot R00.2 PALPITATIONS 12/05/2016 SUNITA BERNAL Ot Z72.820 SLEEP DEPRIVATION 12/09/2016 SUNITA BERNAL Ot E86.9 VOLUME DEPLETION, UNSPECIFIED 12/09/2016 SUNITA BERNAL Ot F17.210 NICOTINE DEPENDENCE, CIGARETTES, UNCOMPL 12/09/2016 SUNITA BERNAL Ot K02.9 DENTAL CARIES, UNSPECIFIED 12/09/2016 SUNITA BERNAL Ot O99.89 OTH DISEASES AND CONDITIONS COMPL PREG/C 12/09/2016 SUNITA BERNAL Ot R00.2 PALPITATIONS 12/09/2016 [...] CYST OF LEFT OVARY 01/15/2017 JENNIFER MAYES MD Ot N70.01 ACUTE SALPINGITIS 01/15/2017 JENNIFER MAYES MD Ot N72 INFLAMMATORY DISEASE OF CERVIX UTERI 01/15/2017 JENNIFER MAYES MD Ot N80.0 ENDOMETRIOSIS OF UTERUS 01/15/2017 JENNIFER MAYES MD Ot N80.1 ENDOMETRIOSIS OF OVARY 01/15/2017 JENNIFER MAYES MD, Ot 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 01/15/2017 JENNIFER MAYES MD, Ot N80.3 ENDOMETRIOSIS OF PELVIC PERITONEUM 01/15/2017 JENNIFER MAYES MD, Ot N83.01 FOLLICULAR CYST OF RIGHT OVARY 01/15/2017 JENNIFER MAYES MD, Ot N83.02 FOLLICULAR CYST OF LEFT OVARY 02/02/2017 JESSIE ROBERTS MD Ot G89.18 OTHER ACUTE POSTPROCEDURAL PAIN 02/02/2017 JESSIE ROBERTS MD Ot K08.409 PARTIAL LOSS OF TEETH, UNSPECIFIED CAUSE 02/02/2017 JESSIE ROBERTS MD Ot K08.9 DISORDER OF TEETH AND SUPPORTING STRUCTU 02/03/2017 JESSIE ROBERTS MD Ot G89.18 OTHER ACUTE POSTPROCEDURAL PAIN 02/03/2017 JESSIE ROBERTS MD Ot K08.409 PARTIAL LOSS OF TEETH, UNSPECIFIED CAUSE 02/03/2017 JESSIE ROBERTS MD Ot K08.9 DISORDER OF TEETH AND SUPPORTING STRUCTU 04/11/2017 FLO GONZALEZ AUDIO SPECIALIST Ot R10.2 PELVIC AND PERINEAL PAIN 04/24/2017 MADLROSITAA L AUDIO SPECIALIST Ot R10.2 PELVIC AND PERINEAL PAIN 04/24/2017 Ot 427.9 CARDIAC DYSRHYTHMIA NOS 04/24/2017 WOLF JAMA MD Ot 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 04/24/2017 WOLF JAMA MD Ot 724.2 LUMBAGO 04/24/2017 WOLF JAMA MD Ot 729.5 PAIN IN LIMB 04/24/2017 JENNIFER MAYES MD Ot 240.9 GOITER NOS 04/24/2017 JENNIFER MAYES MD Ot 789.01 ABDOMINAL PAIN, RIGHT UPPER QUADRANT 04/24/2017 FLO GONZALEZ AUDIO SPECIALIST Ot 724.2 LUMBAGO 04/24/2017 FLO GONZALEZ AUDIO SPECIALIST Ot 785.1 PALPITATIONS 04/24/2017 FELICIA RESTREPO TAQUERIA Ot Z87.42 PERSONAL HISTORY OF OTH DISEASES OF THE 04/24/2017 JENNIFER MAYES MD, Ot O36.0930 MATERNAL CARE FOR OTH RHESUS ISOIMMUN, T 04/24/2017 JENNIFER MAYES MD, Ot Z23 ENCOUNTER FOR IMMUNIZATION 04/24/2017 JENNIFER MAYES MD, Ot Z3A.00 WEEKS OF GESTATION OF NOT SPEC 04/24/2017 FLO GONZALEZ AUDIO SPECIALIST Ot R10.2 PELVIC AND PERINEAL PAIN 05/03/2017 FLO GONZALEZ AUDIO SPECIALIST Ot R10.2 PELVIC AND PERINEAL PAIN 05/03/2017 FLO GONZALEZ AUDIO SPECIALIST Ot R10.2 PELVIC AND PERINEAL PAIN Procedures Code Description [place] [address] ROUTINE VENIPUNCTURE 09/28/2012 09907 CBC 09/28/2012 41330 CRP 09/29/2012 31462 URINE TEST (IN- HOUSE) 11/29/2012 86802 URINE TEST (IN- HOUSE) 01/16/2013 20466 TRICHOMONAS (IN-HOUSE) 01/16/2013 28281 GC/CHLAM PROBE (STATE) 01/17/2013 85708 PAP SMEAR 01/17/2013 Q0091 PAP SMEAR OBTAIN SMEAR 01/17/2013 12157 CULTURE UROGENITAL 01/19/2013 83600 URINE TEST (IN- HOUSE) 02/13/2013 72112 URINE TEST (IN- HOUSE) 04/02/2013 17537 XRAY CERVICAL SPINE, 2 OR 3 VIEWS 04/02/2013 33996 XRAY LUMBAR SPINE 2 OR 3 VIEWS 04/02/2013 97960 MRI SPINE (LUMBAR) W/O CONTRAST 05/17/2013 23919 TB TEST INTRADERMAL 06/22/2013 10902 URINE TEST (IN- HOUSE) 08/01/2013 62020 UA LONG DIP 09/11/2013 [id number] GFR CALC (RESULT ONLY) 09/16/2013 23611 CREATININE 09/16/2013 86874 URINE PROTEIN 24 HOUR 09/16/2013 [id number] URINE CREATININE CLEARANCE 24 09/16/2013 73.6 EPISIOTOMY 03/22/2014 90593 ROUTINE VENIPUNCTURE 07/04/2014 56965 MRI SPINE (LUMBAR) W/O CONTRAST 07/04/2014 44468 CMP 07/04/2014 39170 CBC 07/04/2014 48913 ROUTINE VENIPUNCTURE 09/16/2014 35445 US ABDOMINAL ULTRASOUND, COMPLETE 09/16/2014 95448 VITAMIN D 25-HYDROXY (D2,D3 , TOTAL) 09/16/2014 73393 VIT B 12 09/16/2014 01128 TSH 09/16/2014 83794 H PYLORI (IN-HOUSE) 09/16/2014 75405 CBC 09/16/2014 4473007 GFR CALC (RESULT ONLY) 09/16/2014 47940 CMP 09/16/2014 59374 UA W/ CULTURE IF INDICATED 10/29/2014 28039 GC/CHLAM URINE (STATE) 10/29/2014 19386 PSYCH DIAGNOSTIC EVALUATION 10/31/2014 58533 ROUTINE VENIPUNCTURE 11/10/2014 18595 XRAY CHEST 2 VIEW 11/10/2014 10624 CMP 11/10/2014 01299 MAGNESIUM 11/10/2014 20605 CBC 11/10/2014 05360 EKG, TRACING (IN-HOUSE) 11/10/2014 84331 HOLTER MONITOR (OUTPATIENT) 11/10/2014 CARDIOLOG RANULFO VARGAS 11/10/2014 12180 PSYTX PT&/FAMILY 45 MINUTES 11/26/2014 [id number] DIVISION OF FEMALE PERINEUM, EXTERNAL AP 11/29/2016 [id number] DELIVERY OF PRODUCTS OF CONCEPTION, EXTE 11/29/2016 Results Test Result Range Complete blood count (CBC) with automated white blood cell (WBC) differential - 06/29/16 15:30 Blood leukocytes automated count (number/volume) 11.4 10*3/uL 4.3-11.0 Blood erythrocytes automated count (number/volume) 4.46 10*6/uL 4.35-5.85 Venous blood hemoglobin measurement (mass/volume) 13.4 [...] Automated blood platelet mean volume measurement 11.1 [foz_us] 7.4-10.4 Automated blood neutrophils/100 leukocytes 74 % [...] IMMUNE GLOBULIN RHOPHYLAC PRSMD TRFSD 06/29/16 1556 NR [id number] - 06/29/16 15:40 [id number] 300ug NRG Lot number - 06/29/16 15:40 Lot number [id number] NRG cell screen - 06/29/16 15:40 cell screen 08/04/18 NR Complete urinalysis with reflex to culture - 06/29/16 16:25 Urine color determination YELLOW NRG Urine clarity determination SLIGHTLY CLOUDY NRG Urine pH measurement by test strip 7 5-9 Specific gravity of urine by test strip 1.015 1.016- 1.022 Urine protein assay by test strip, semi-quantitative [...] culture - 06/29/16 16:25 Bacterial urine culture [id number] NRG COLONY COUNT >100,000/ML NRG FTX;REPORTABLE SENSITIVITY REPORTED 07/01/16 7:50 NRG Bacterial susceptibility panel - 06/29/16 16:25 Gentamicin susceptibility test by minimum inhibitory concentration < = NRG Trimethoprim/sulfamethoxazole susceptibility test by minimum inhibitoryconcentration <= NRG Ampicillin susceptibility test by minimum inhibitory concentration 4 NRG Tobramycin susceptibility test by minimum inhibitory concentration < = NRG Cefazolin susceptibility test by minimum inhibitory concentration < = NRG Ceftriaxone susceptibility test by minimum inhibitory concentration <= NRG Ampicillin/sulbactam susceptibility test by minimum inhibitory concentration 4 NRG Piperacillin/tazobactam susceptibility test by minimum inhibitory concentration <= NRG Ciprofloxacin susceptibility test by minimum inhibitory concentration <= NRG Meropenem susceptibility test by minimum inhibitory concentration < = NRG Nitrofurantoin susceptibility test by minimum inhibitory concentration <= NRG Aztreonam susceptibility test by minimum inhibitory concentration < = NRG Extended spectrum beta lactamase (ESBL) producing bacteria susceptibility test by minimum inhibitory concentration - NRG Bacteria identification in genital specimen by aerobe culture - 06/29/16 16:55 FREE TEXT EXTERNAL PLUS NORMAL FLASH NRG QUANTITY OF GROWTH Moderate Growth NRG Bacteria identification in genital specimen by aerobe culture [id number] NRG Microscopic examination by wet preparation - [...] Urine pH measurement by test strip 6 5-9 Specific gravity of urine by test strip 1.015 1.016- 1.022 Urine protein assay by test strip, semi-quantitative [...] culture - 07/22/16 18:23 Bacterial urine culture [id number] NRG COLONY COUNT >100,000/ML NRG FTX;REPORTABLE SENSITIVITY REPORTED AT 1738, 07-23-16 [facility] Bacterial susceptibility panel - 07/22/16 18:23 Gentamicin susceptibility test by minimum inhibitory concentration < = NRG Trimethoprim/sulfamethoxazole susceptibility test by minimum inhibitoryconcentration <= NRG Ampicillin susceptibility test by minimum inhibitory concentration 8 NRG Tobramycin susceptibility test by minimum inhibitory concentration < = NRG Cefazolin susceptibility test by minimum inhibitory concentration < = NRG Ceftriaxone susceptibility test by minimum inhibitory concentration <= NRG Ampicillin/sulbactam susceptibility test by minimum inhibitory concentration 4 NRG Piperacillin/tazobactam susceptibility test by minimum inhibitory concentration <= NRG Ciprofloxacin susceptibility test by minimum inhibitory concentration <= NRG Meropenem susceptibility test by minimum inhibitory concentration < = NRG Nitrofurantoin susceptibility test by minimum inhibitory concentration <= NRG Aztreonam susceptibility test by minimum inhibitory concentration < = NRG Extended spectrum beta lactamase (ESBL) producing bacteria susceptibility test by minimum inhibitory concentration - [facility] RH IMMUNE GLOBULIN BAYRHO - 10/05/16 12:19 RH IMMUNE GLOBULIN [facility] PRSMD TRFSD 10/05/16 1300 NRG [id number] - 10/05/16 12:19 [id number] 300ug NRG Lot number - 10/05/16 12:19 Lot number [id number] NRG cell screen - 10/05/16 12:19 cell screen 09/23/18 NRG Complete urinalysis with reflex to culture - 11/08/16 18:45 Urine color determination YELLOW NRG Urine clarity determination SLIGHTLY CLOUDY NRG Urine pH measurement by test strip 6 5-9 Specific gravity of urine by test strip 1.020 1.016- 1.022 Urine protein assay by test strip, semi-quantitative [...] 19:04 Blood leukocytes automated count (number/volume) 16.5 10*3/uL 4.3-11.0 Blood erythrocytes automated count (number/volume) 3.85 10*6/uL 4.35-5.85 Venous blood hemoglobin measurement (mass/volume) 11.8 [...] Automated blood platelet mean volume measurement 10.9 [foz_us] 7.4-10.4 [id number] - 11/08/16 19:04 [id number] SPECIMEN AVAILABLE [facility] Complete blood count (CBC) with automated white blood cell (WBC) differential - 11/26/16 13:55 Blood leukocytes automated count (number/volume) 13.8 10*3/uL 4.3-11.0 Blood erythrocytes automated count (number/volume) 3.93 10*6/uL 4.35-5.85 Venous blood hemoglobin measurement (mass/volume) 11.7 [...] Automated blood platelet mean volume measurement 10.5 [foz_us] 7.4-10.4 Automated blood neutrophils/100 leukocytes 70 % [...] Serum or plasma sodium measurement (moles/volume) 138 mmol/L 135-145 Serum or plasma potassium measurement (moles/volume) 3.7 mmol/L 3.6-5.0 Serum or plasma chloride measurement (moles/volume) 106 mmol/L 98-107 Carbon dioxide 21 mmol/L 21-32 Serum or plasma anion gap determination (moles/volume) 11 mmol/L 5-14 Serum or plasma urea nitrogen measurement (mass/volume) 6 mg/dL 7-18 Serum or plasma creatinine measurement (mass/volume) 0.56 mg/dL 0.60-1.30 Serum or plasma urea nitrogen/creatinine mass [...] 17:15 Blood leukocytes automated count (number/volume) 14.8 10*3/uL 4.3-11.0 Blood erythrocytes automated count (number/volume) 3.87 10*6/uL 4.35-5.85 Venous blood hemoglobin measurement (mass/volume) 11.6 [...] Automated blood platelet mean volume measurement 10.7 [foz_us] 7.4-10.4 Automated blood neutrophils/100 leukocytes 65 % [...] ABO+Rh group AN NRG Transfusion band number [id number] NRG Blood group antibody screen NEGATIVE NRG Microscopic examination by wet preparation - 11/29/16 17:30 WET PREP RESULTS NO YEAST OBSERVED, NO TRICHOMONAS OBSERVED NRG Complete blood count (CBC) with automated white blood cell (WBC) differential - 12/02/16 10:55 Blood leukocytes automated count (number/volume) 13.8 10*3/uL 4.3-11.0 Blood erythrocytes automated count (number/volume) 3.78 10*6/uL 4.35-5.85 Venous blood hemoglobin measurement (mass/volume) 11.4 [...] Automated blood platelet mean volume measurement 10.3 [foz_us] 7.4-10.4 Automated blood neutrophils/100 leukocytes 64 % [...] Serum or plasma sodium measurement (moles/volume) 137 mmol/L 135-145 Serum or plasma potassium measurement (moles/volume) 3.7 mmol/L 3.6-5.0 Serum or plasma chloride measurement (moles/volume) 106 mmol/L 98-107 Carbon dioxide 23 mmol/L 21-32 Serum or plasma anion gap determination (moles/volume) 8 mmol/L 5-14 Serum or plasma urea nitrogen measurement (mass/volume) 8 mg/dL 7-18 Serum or plasma creatinine measurement (mass/volume) 0.59 mg/dL 0.60-1.30 Serum or plasma urea nitrogen/creatinine mass [...] or plasma troponin i.cardiac measurement (mass/volume) < ng/ mL <0.30 Serum or plasma thyrotropin measurement by [...] Urine pH measurement by test strip 7 5-9 Specific gravity of urine by test strip 1.005 1.016- 1.022 Urine protein assay by test strip, semi-quantitative [...] 01:24 Blood leukocytes automated count (number/volume) 6.7 10*3/uL 4.3-11.0 Blood erythrocytes automated count (number/volume) 4.19 10*6/uL 4.35-5.85 Venous blood hemoglobin measurement (mass/volume) 12.6 [...] Automated blood platelet mean volume measurement 9.7 [foz_us] 7.4-10.4 Automated blood neutrophils/100 leukocytes 44 % [...] Serum or plasma sodium measurement (moles/volume) 138 mmol/L 135-145 Serum or plasma potassium measurement (moles/volume) 4.1 mmol/L 3.6-5.0 Serum or plasma chloride measurement (moles/volume) 107 mmol/L 98-107 Carbon dioxide 21 mmol/L 21-32 Serum or plasma anion gap determination (moles/volume) 10 mmol/L 5-14 Serum or plasma urea nitrogen measurement (mass/volume) 9 mg/dL 7-18 Serum or plasma creatinine measurement (mass/volume) 0.77 mg/dL 0.60-1.30 Serum or plasma urea nitrogen/creatinine mass [...] plasma C reactive protein measurement (mass/volume) 0.16 mg /dL 0.00-0.50 Complete urinalysis with reflex to culture - 12/16/16 01:57 Urine color determination YELLOW NRG Urine clarity determination SLIGHTLY CLOUDY NRG Urine pH measurement by test strip 7 5-9 Specific gravity of urine by test strip 1.010 1.016- 1.022 Urine protein assay by test strip, semi-quantitative [...] ABO+Rh group AN NRG Transfusion band number [id number] NRG Blood group antibody screen NEGATIVE NRG Complete blood count (CBC) with automated white blood cell (WBC) differential - 11/30/17 10:20 Blood leukocytes automated count (number/volume) 6.2 10*3/uL 4.3-11.0 Blood erythrocytes automated count (number/volume) 4.52 10*6/uL 4.35-5.85 Venous blood hemoglobin measurement (mass/volume) 13.7 g/dL 11.5-16.0 Blood hematocrit (volume fraction) 40 % 35-52 Automated erythrocyte mean corpuscular volume 88 [foz_us] 80-99 Automated erythrocyte mean corpuscular hemoglobin (mass per erythrocyte) 30 pg 25-34 Automated erythrocyte mean corpuscular hemoglobin concentration measurement ( mass/volume) 35 g/dL 32-36 Automated erythrocyte distribution width ratio 13.2 % 10.0-14.5 Automated blood platelet count (count/volume) 242 10*3/uL 130-400 Automated blood platelet mean volume measurement 10.1 [foz_us] 7.4-10.4 Automated blood neutrophils/100 leukocytes 50 % 42-75 Automated blood lymphocytes/100 leukocytes 35 % 12-44 Blood monocytes/100 leukocytes 13 % 0-12 Automated blood eosinophils/100 leukocytes 3 % 0-10 Automated blood basophils/100 leukocytes 0 % 0-10 Blood neutrophils automated count (number/volume) 3.1 10*3 1.8-7.8 Blood lymphocytes automated count (number/volume) 2.1 10*3 1.0-4.0 Blood monocytes automated count (number/volume) 0.8 10*3 0.0-1.0 Automated eosinophil count 0.2 10*3/uL 0.0-0.3 Automated blood basophil count (count/volume) 0.0 10*3/uL 0.0-0.1 Methicillin resistant Staphylococcus aureus (MRSA) screening culture - 10:20 MRSA SCREEN RESULT MRSA ISOLATED NRG Encounters ACCT No. Visit Date/Time Discharge Status Pt. Type Provider Facility Loc./Unit Complaint [id number] 02/27/2015 09:25:00 02/27/2015 23:59:59 CLS Outpatient GODWIN SEVILLA APRN [id number] 01/23/2015 11:47:00 01/23/2015 23:59:59 CLS Outpatient GODWIN SEVILLA APRN [id number] 12/18/2014 16:07:00 12/18/2014 23:59:59 CLS Outpatient MAR BLANTONNICOLA Jacinta [id number] 12/18/2014 10:25:00 12/18/2014 23:59:59 CLS Outpatient GODWIN SEVILLA APRN [id number] 12/16/2014 10:01:00 12/16/2014 23:59:59 CLS Outpatient ANGELA DEMOND CHOUDHURY [id number] 11/26/2014 14:03:00 11/26/2014 23:59:59 [id number] 11/21/2014 08:26:00 11/21/2014 23:59:59 CLS Outpatient JOSE SILVERIO DDS [id number] 11/10/2014 09:24:00 11/10/2014 23:59:59 CLS Outpatient FLO GONZALEZ APRN [id number] 10/31/2014 11:08:00 10/31/2014 23:59:59 [facility] [id number] 10/29/2014 16:35:00 10/29/2014 23:59:59 CLS Outpatient ELIAS DENNIS APRN [id number] 10/17/2014 11:27:00 10/17/2014 23:59:59 CLS Outpatient GODWIN SEVILLA APRN [id number] 09/16/2014 09:30:00 09/16/2014 23:59:59 CLS Outpatient FLO GONZALEZ APRN [id number] 09/16/2014 09:30:00 09/16/2014 23:59:59 CLS Outpatient FLO GONZALEZ APRN [id number] 08/01/2014 13:23:00 08/01/2014 23:59:59 CLS Outpatient GODWIN SEVILLA APRN [id number] 08/01/2014 13:23:00 08/01/2014 23:59:59 CLS Outpatient GODWIN SEVILLA APRN [id number] 07/04/2014 08:35:00 07/04/2014 23:59:59 CLS Outpatient FLO GONZALEZ APRN [id number] 06/10/2014 09:22:00 06/10/2014 23:59:59 CLS Outpatient GODWIN SEVILLA APRN [id number] 05/27/2014 08:53:00 05/27/2014 23:59:59 CLS Outpatient FLO GONZALEZ APRN [id number] 05/08/2014 11:48:00 05/08/2014 23:59:59 CLS Outpatient GODWIN SEVILLA APRN [id number] 04/10/2014 09:33:00 04/10/2014 23:59:59 CLS Outpatient WOLF JAMA MD [id number] 03/11/2014 13:00:00 03/11/2014 23:59:59 CLS Outpatient JASON HUNTER APRN [id number] 03/11/2014 13:00:00 03/11/2014 23:59:59 CLS Outpatient JASON HUNTER APRN [id number] 12/10/2013 10:52:00 12/10/2013 23:59:59 CLS Outpatient JASON HUNTER APRN [id number] 10/18/2013 09:59:00 10/18/2013 23:59:59 CLS Outpatient KELY FRIEDMAN DDS [id number] 09/16/2013 12:50:00 09/16/2013 23:59:59 CLS Outpatient NICOLA MANUEL DO [id number] 09/11/2013 16:55:00 09/11/2013 23:59:59 CLS Outpatient WOLF JAMA MD [id number] 08/15/2013 12:35:00 08/15/2013 23:59:59 CLS Outpatient JASON HUNTER APRN [id number] 08/01/2013 09:18:00 08/01/2013 23:59:59 CLS Outpatient MAR BLANTONNICOLA [id number] 02/13/2013 13:59:00 02/13/2013 23:59:59 CLS Outpatient [id number] 01/24/2013 15:27:00 01/24/2013 23:59:59 CLS Outpatient JASON SOLANO DO [id number] 01/16/2013 10:21:00 01/16/2013 23:59:59 CLS Outpatient MAR BLANTON NICOLA Workman [id number] 11/29/2012 15:05:00 11/29/2012 23:59:59 CLS Outpatient [id number] 09/28/2012 08:28:00 09/28/2012 23:59:59 [place] [id number] 09/03/2012 15:05:00 09/03/2012 23:59:59 CLS Outpatient WOLF JAMA MD [id number] 06/22/2013 09:12:00 Document Registration [id number] 05/15/2013 10:52:00 Document Registration [id number] 05/09/2013 15:22:00 Document Registration [id number] 04/29/2013 08:59:00 Document Registration [id number] 04/26/2013 14:51:00 Document Registration [id number] 04/19/2013 10:48:00 Document Registration [id number] 04/02/2013 13:34:00 Document Registration [id number] 03/26/2013 13:02:00 Document Registration [id number] 03/23/2013 09:54:00 Document Registration [id number] 02/22/2013 12:11:00 Document Registration [id number] 12/21/2017 01:43:00 12/21/2017 02:17:00 DIS Emergency DONNELL OJNES, CALVIN Kiser [facility] ER POST OP ABD SURGERY BLEEDING THRU,VERY PAINFULL [id number] 12/20/2017 10:50:00 12/20/2017 16:50:00 DIS Outpatient GERBER JONES, JENNIFER Altamirano [facility] SDC ENDOMETRIOSIS, CHRONIC PELVIC PAIN [id number] 11/30/2017 10:02:00 11/30/2017 10:40:00 DIS Outpatient JENNIFER MAYES MD Via [facility] PREOP ENDOMETRIOSIS, CHRONIC PELVIC PAIN [id number] 04/05/2017 09:36:00 04/05/2017 23:59:59 CLS Outpatient BRYANTima FLO Tima AUDIO SPECIALIST [facility] RAD R10.2 PELVIC PAIN [id number] 02/03/2017 09:42:00 02/03/2017 23:59:59 CLS Preadmit JENINFER MAYES MD [facility] REHAB LBP TWO MONTHS ; S/P HYSTERECTOMY [id number] 02/02/2017 12:09:00 02/02/2017 12:47:00 DIS Emergency JESSIE ROBERTS MD [facility] ER DENTAL/JAW PAIN [id number] 01/09/2017 10:50:00 01/10/2017 09:45:00 DIS Outpatient JENNIFER MAYES MD Via [facility] CPP;DUB; ENDOMETRIOSIS [id number] 01/04/2017 12:09:00 01/04/2017 12:30:00 DIS Outpatient JENNIFER MAYES MD [facility] PREOP CPP;DUB; ENDOMETRIOSIS [id number] 12/16/2016 00:59:00 12/16/2016 02:52:00 DIS Emergency CALVIN JACOBO MD [facility] ER NAUSEA,FEVER,HAD BABY ON 11-29-16 [id number] 12/02/2016 10:48:00 12/02/2016 14:00:00 DIS Emergency SUNITA BERNAL [facility] ER PALPITATIONS/BLURRY VISION [id number] 11/29/2016 17:45:00 12/01/2016 13:30:00 DIS Inpatient JENNIFER MAYES MD [facility] LDRP LABOR [id number] 11/26/2016 13:04:00 11/26/2016 15:11:00 DIS Outpatient [facility]/LOWER BACK PAIN [id number] 11/08/2016 18:28:00 11/08/2016 21:23:00 DIS Outpatient JENNIFER [facility]YES MD [facility] LOWER BACK PAIN/ RIB PAIN/ABD PAIN/GROIN PAIN [id number] 10/05/2016 12:03:00 10/05/2016 23:59:59 CLS Outpatient JENNIFER [facility]YES MD [facility] RH NEGATIVE IN [id number] 09/14/2016 12:52:00 09/14/2016 13:45:00 DIS Outpatient JENNIFER [facility]YES MD [facility] LOOSING MUCUS PLUG 26 WKS PREG [id number] 07/22/2016 16:02:00 07/22/2016 19:50:00 DIS Emergency SUNITA BERNAL [facility] ER FEVER/CANNOT URINATE [id number] 06/29/2016 14:38:00 06/29/2016 18:17:00 DIS Emergency REZA CORONADO MD Via [facility] ER VAG BLEEDING 15 WKS PREG [id number] 03/23/2016 21:42:00 03/24/2016 01:40:00 DIS Emergency CLAUDY MIRANDA BLANTON [facility] ER CONFUSED,DROWSY [id number] 01/02/2016 01:08:00 01/02/2016 01:43:00 DIS Emergency MIRANDA LOCO DO [facility] ER RT SIDE OF FACE PAINFUL, DENTAL PAIN [id number] 11/04/2015 14:43:00 11/04/2015 23:59:59 CLS Outpatient FELICIA RESTREPO APRN [facility] RAD HISTORY OF ENDOMETRIOSIS [id number] 10/10/2015 16:42:00 10/10/2015 18:09:00 DIS Emergency ISMAEL SOL APRN [facility] ER HIP/BACK PAIN - POSSIBLY [id number] 08/31/2015 17:50:00 08/31/2015 19:59:00 DIS Emergency ISMAEL SOL APRN [facility] ER SEIZURE [id number] 08/26/2015 03:31:00 08/26/2015 05:08:00 DIS Emergency MIRANDA LOCO DO [facility] ER RT SIDE ABD PAIN [id number] 05/18/2015 11:11:00 05/18/2015 12:42:00 DIS Emergency ISMAEL SOL APRN [facility] ER ABD/LOWER BACK PAIN UTI SYMPTOMS [id number] 02/26/2015 09:00:00 02/26/2015 23:59:59 CLS Preadmit MADL, FLO L AUDIO SPECIALIST Via [facility] CARD PALPITATIONS [id number] 11/27/2014 08:42:00 02/25/2015 00:01:00 DIS Outpatient MADL, FLO L AUDIO SPECIALIST [facility] CARD PALPITATIONS [id number] 12/09/2014 13:03:00 12/09/2014 14:48:00 DIS Emergency ISMAEL SOL APRN [facility] ER IRR HEART RATE [id number] 11/28/2014 21:04:00 11/28/2014 21:30:00 DIS Emergency ISMAEL SOL APRN [facility] ER TOOTH ACHE [id number] 09/18/2014 10:34:00 09/25/2014 11:11:00 DIS Outpatient JOSE FRIEDMAN MD [facility] REHAB LUMBAGO AND CERVICALGIA [id number] 09/19/2014 17:05:00 09/19/2014 18:13:00 DIS Emergency SUNITA BERNAL [facility] ER L SIDE FACIAL/DENTAL PAIN [id number] 08/11/2014 14:55:00 08/11/2014 23:59:59 CLS Outpatient MADL, FLO L 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 Via [facility] RAD LBP [id number] 08/04/2014 15:27:00 08/04/2014 17:54:00 DIS Emergency ISMAEL SOL APRN [facility] ER FALL [id number] 06/05/2014 15:36:00 06/05/2014 16:31:00 DIS Emergency REZA CORONADO MD [facility] ER CHEST CONGESTION, COUGH [id number] 05/01/2014 01:24:00 05/01/2014 03:36:00 DIS Emergency MIGDALIA RAMON DO [facility] ER BACK PAIN [id number] 04/24/2014 08:45:00 04/24/2014 23:59:59 CLS Outpatient JENNIFER MAYES MD [facility] RAD RUQ PAIN,GOITER [id number] 03/22/2014 13:08:00 03/26/2014 11:55:00 DIS Inpatient JENNIFER MAYES MD [facility] WS LABOR [id number] 03/20/2014 21:50:00 03/21/2014 09:00:00 DIS Inpatient JENNIFER MAYES MD [facility] WS RIB PAIN [id number] 03/14/2014 00:56:00 03/14/2014 01:44:00 DIS Outpatient JENNIFER MAYES MD [facility] WSo PRESSURE [id number] 02/11/2014 21:51:00 02/11/2014 22:50:00 DIS Outpatient JENNIFER MAYES MD [facility] WSo C/O CRAMPING [id number] 11/13/2013 15:06:00 11/13/2013 18:10:00 DIS Outpatient [facility]ENN[facility]ER [facility]YES [facility] WATERY DISCHARGE SINCE 1400 [id number] 05/20/2013 08:48:00 05/20/2013 23:59:59 CLS Outpatient WOLF JAMA MD [facility] RAD LOW BACK PAIN,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,BLADDER DISFUNCT [id number] 04/30/2013 14:31:00 04/30/2013 16:18:00 DIS Emergency MEJIA JONES, YAW R [facility] ER LOW BACK/RT HIP PAIN ABSCESS RIGHT THIGH [id number] 04/20/2013 11:49:00 04/20/2013 13:40:00 DIS Emergency ARMANDO JONES, JESSIE Workman [facility] ER RAPID HEART BEAT, SOA [id number] 05/18/2015 11:12:00 Document Registration [id number] 05/18/2015 11:12:00 Document Registration [id number] 01/21/2015 00:32:00 Document Registration [id number] 09/25/2014 14:23:00 Document Registration [id number] 12/11/2012 16:00:00 Document Registration [id number] 12/08/2012 15:53:00 Document Registration [id number] 01/26/2012 09:17:00 Document Registration [id number] 01/18/2012 18:33:00 Document Registration [id number] 09/12/2011 15:20:00 Document Registration [id number] 06/27/2011 15:54:00 Document Registration [id number] 05/26/2010 22:10:00 Document Registration [id number] 05/06/2010 09:15:00 Document Registration
== END 2017-12-21 02:17 | disposition home or self-care (01) ==
LOC: EDUNIT# 01:40 → ER 01:43
DX: G89.18 Other acute postprocedural pain (principal); N99.820 Postprocedural hemorrhage of a genitourinary system organ or structure following a genitourinary system procedure; J45.909 Unspecified asthma, uncomplicated; F41.9 Anxiety disorder, unspecified; F31.9 Bipolar disorder, unspecified; F17.210 Nicotine dependence, cigarettes, uncomplicated; Z87.448 Personal history of other diseases of urinary system; Z90.89 Acquired absence of other organs; Z88.0 Allergy status to penicillin; Z88.8 Allergy status to other drugs, medicaments and biological substances; Z90.721 Acquired absence of ovaries, unilateral

== ENCOUNTER 2018-01-09 00:05 | Emergency (ER) | payer OTHER ==
[~2018-01-09] VITALS: Ht 167.6 cm; Wt 56.7 kg
[~2018-01-09 00:05] MED LIST changes: +NAPR-915 PO; -NAPR500T4 PO
--- OUTSIDE RECORDS SUMMARY | 2018-01-09 00:26 | XMS REPORT | Continuity of Care Document ---
Author Author [facility] Address Unknown Phone Unavailable Allergies [...] Drug Allergy N/A N/A 05/09/2013 Yes Penicillins [id number] Drug Allergy Mild PT ABLE TO TAKE 03/26/2014 Yes Depakote 250 mg tablet,delayed release (DR/EC) Drug Allergy N/A N/A 12/18 Yes diclofenac [id number] Drug Allergy Unknown N/A 01/21/2015 Yes divalproex sodium [id number] Drug Allergy Unknown N/A 08/26/2015 Medications There [...] NICOLA K 296.90 Mood Disorder 06/20/2008 JASON UHNTER APRN D 296.90 Mood Disorder 06/20/2008 WOLF JAMA MD 296.90 Mood Disorder 06/20/2008 MANUEL DO NICOLA K 296.90 Mood Disorder 06/20/2008 IDALIA KELY BAKER J 296.90 Mood Disorder 06/20/2008 GARTON EXHIBIT ARTIST, JASON D 296.90 Mood Disorder 06/20/2008 GARMYRA EXHIBIT ARTISTJASON Kirkpatrick D 296.90 Mood Disorder 06/20/2008 GARTON EXHIBIT ARTIST, JASON D 296.90 Mood Disorder 06/20/2008 WOLF JAMA MD 296.90 Mood Disorder 06/20/2008 ROEL EXHIBIT ARTIST, GODWIN 296.90 Mood Disorder 06/20/2008 MADL EXHIBIT ARTIST, FLO L 296.90 Mood Disorder 06/20/2008 ROEL EXHIBIT ARTIST, GODWIN 296.90 Mood Disorder 06/20/2008 MADL EXHIBIT ARTIST, FLO L 296.90 Mood Disorder 06/20/2008 ROEL EXHIBIT ARTIST, GODWIN 296.90 Mood Disorder 06/20/2008 ROEL EXHIBIT ARTIST, GODWIN 296.90 Mood Disorder 06/20/2008 MADL EXHIBIT ARTIST, FLO L 296.90 Mood Disorder 06/20/2008 MADL EXHIBIT ARTIST, FLO L 296.90 Mood Disorder 06/20/2008 ROEL EXHIBIT ARTIST, GODWIN 296.90 Mood Disorder 06/20/2008 SONNY EXHIBIT ARTIST, ELIAS A 296.90 Mood Disorder 06/20/2008 ANGELA CS, DEMOND R 296.90 Mood Disorder 06/20/2008 MADL EXHIBIT ARTIST, FLO L 296.90 Mood Disorder 06/20/2008 NUSRAT BAKER JOSE 296.90 Mood Disorder 06/20/2008 ANGELA LSCS, DEMOND R 296.90 Mood Disorder 06/20/2008 ANGELA LSCS, DEMOND R 296.90 Mood Disorder 06/20/2008 ROEL EXHIBIT ARTIST, GODWIN 296.90 Mood Disorder 06/20/2008 MANUEL DOMARALA K 296.90 Mood Disorder 06/20/2008 ROEL EXHIBIT ARTIST, GODWIN 296.90 Mood Disorder 06/20/2008 ROEL EXHIBIT ARTIST, GODWIN 296.90 Mood Disorder 10/03/2008 WOLF JAMA [...] MD 465.9 Upper Respiratory Infection 10/03/2008 ROEL EXHIBIT ARTIST, GODWIN 465.9 Upper Respiratory Infection 10/03/2008 MADTima EXHIBIT ARTIST, FLO L 465.9 Upper Respiratory Infection 10/03/2008 ROEL EXHIBIT ARTIST, GODWIN 465.9 Upper Respiratory Infection 10/03/2008 MADL EXHIBIT ARTIST, FLO L 465.9 Upper Respiratory Infection 10/03/2008 ROEL EXHIBIT ARTIST, GODWIN 465.9 Upper Respiratory Infection 10/03/2008 ROEL EXHIBIT ARTIST, GODWIN 465.9 Upper Respiratory Infection 10/03/2008 LISA MENG, FLO L 465.9 Upper Respiratory Infection 10/03/2008 MADL EXHIBIT ARTIST, FLO L 465.9 Upper Respiratory Infection 10/03/2008 ROEL EXHIBIT ARTIST, GODWIN 465.9 Upper Respiratory Infection 10/03/2008 SONNY EXHIBIT ARTIST, ELIAS A 465.9 Upper Respiratory Infection 10/03/2008 [facility], DEMOND R 465.9 Upper Respiratory Infection 10/03/2008 MADL EXHIBIT ARTIST, FLO L 465.9 Upper Respiratory Infection 10/03/2008 NUSRAT JENKINSS, JOSE 465.9 Upper Respiratory Infection 10/03/2008 [facility], DEMOND R 465.9 Upper Respiratory Infection 10/03/2008 [facility], DEMOND R 465.9 Upper Respiratory Infection 10/03/2008 ROEL EXHIBIT ARTIST, GODWIN 465.9 Upper Respiratory Infection 10/03/2008 NICOLA MANUEL DO K 465.9 Upper Respiratory Infection 10/03/2008 ROEL EXHIBIT ARTIST, GODWIN 465.9 Upper Respiratory Infection 10/03/2008 ROEL EXHIBIT ARTIST, GODWIN 465.9 Upper Respiratory Infection 11/27/2008 WOLF [...] MD V58.69 Medication High Risk 11/27/2008 ROEL EXHIBIT ARTIST, GODWIN V58.69 Medication High Risk 11/27/2008 MADL EXHIBIT ARTIST, FLO L V58.69 Medication High Risk 11/27/2008 ROEL EXHIBIT ARTIST, GODWIN V58.69 Medication High Risk 11/27/2008 MADL EXHIBIT ARTIST, FLO L V58.69 Medication High Risk 11/27/2008 ROEL EXHIBIT ARTIST, GODWIN V58.69 Medication High Risk 11/27/2008 ROEL EXHIBIT ARTIST, GODWIN V58.69 Medication High Risk 11/27/2008 MADL EXHIBIT ARTIST, FLO L V58.69 Medication High Risk 11/27/2008 MADL EXHIBIT ARTIST, FLO L V58.69 Medication High Risk 11/27/2008 ROEL EXHIBIT ARTIST, GODWIN V58.69 Medication High Risk 11/27/2008 CARMINA DENNIS APRNIDI Maddy V58.69 Medication High Risk 11/27/2008 [facility], DEMOND R V58.69 Medication High Risk 11/27/2008 MADL EXHIBIT ARTIST, FLO L V58.69 Medication High Risk 11/27/2008 SILVERIO DDSSALVADORW V58.69 Medication High Risk 11/27/2008 [facility], DEMOND R V58.69 Medication High Risk 11/27/2008 [facility], DEMOND R V58.69 Medication High Risk 11/27/2008 ROEL EXHIBIT ARTIST, GODWIN V58.69 Medication High Risk 11/27/2008 MAR BLANTONNICOLA V58.69 Medication High Risk 11/27/2008 ROEL EXHIBIT ARTIST, GODWIN V58.69 Medication High Risk 11/27/2008 ROEL EXHIBIT ARTIST, GODWIN V58.69 Medication High Risk 07/01/2009 WOLF [...] JAMA MD 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 07/01/2009 ROEL EXHIBIT ARTIST, GODWIN 296.32 MO DEPRESSIVE RECURRENT MODERATE 07/01/2009 ROEL EXHIBIT ARTIST, GODWIN 300.00 AN ANXIETY UNSPEC 07/01/2009 ROEL EXHIBIT ARTIST, GODWIN 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 07/01/2009 MADL EXHIBIT ARTIST, FLO L 296.32 MO DEPRESSIVE RECURRENT MODERATE 07/01/2009 MADL EXHIBIT ARTIST, FLO L 300.00 AN ANXIETY UNSPEC 07/01/2009 MADL EXHIBIT ARTIST, FLO L 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 07/01/2009 ROEL EXHIBIT ARTIST, GODWIN 296.32 MO DEPRESSIVE RECURRENT MODERATE 07/01/2009 ROEL EXHIBIT ARTIST, GODWIN 300.00 AN ANXIETY UNSPEC 07/01/2009 ROEL EXHIBIT ARTIST, GODWIN 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 07/01/2009 MADL EXHIBIT ARTIST, FLO L 296.32 MO DEPRESSIVE RECURRENT MODERATE 07/01/2009 MADL EXHIBIT ARTIST, FLO L 300.00 AN ANXIETY UNSPEC 07/01/2009 MADL EXHIBIT ARTIST, FLO L 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 07/01/2009 ROEL EXHIBIT ARTIST, GODWIN 296.32 MO DEPRESSIVE RECURRENT MODERATE 07/01/2009 ROEL EXHIBIT ARTIST, GODWIN 300.00 AN ANXIETY UNSPEC 07/01/2009 ROEL EXHIBIT ARTIST, GODWIN 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 07/01/2009 ROEL EXHIBIT ARTIST, GODWIN 296.32 MO DEPRESSIVE RECURRENT MODERATE 07/01/2009 ROEL EXHIBIT ARTIST, GODWIN 300.00 AN ANXIETY UNSPEC 07/01/2009 ROEL EXHIBIT ARTIST, GODWIN 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 07/01/2009 MADL EXHIBIT ARTIST, FLO L 296.32 MO DEPRESSIVE RECURRENT MODERATE 07/01/2009 MADL EXHIBIT ARTIST, FLO L 300.00 AN ANXIETY UNSPEC 07/01/2009 FLO GONZALEZ APRN L 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 07/01/2009 MADROSITA Alfred APRNA L 296.32 MO DEPRESSIVE RECURRENT MODERATE 07/01/2009 MADL ROSITA MENGA L 300.00 AN ANXIETY UNSPEC 07/01/2009 ROSITA GONZALEZ APRNA L 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 07/01/2009 ROEL EXHIBIT ARTIST, GODWIN 296.32 MO DEPRESSIVE RECURRENT MODERATE 07/01/2009 ROEL EXHIBIT ARTIST, GODWIN 300.00 AN ANXIETY UNSPEC 07/01/2009 ROEL EXHIBIT ARTIST, GODWIN 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 07/01/2009 SONNY EXHIBIT ARTIST, ELIAS A 296.32 MO DEPRESSIVE RECURRENT MODERATE 07/01/2009 SONNY EXHIBIT ARTIST, ELIAS A 300.00 AN ANXIETY UNSPEC 07/01/2009 SONNY EXHIBIT ARTIST, ELIAS A 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 07/01/2009 [facility], DEMOND R 296.32 MO DEPRESSIVE RECURRENT MODERATE 07/01/2009 [facility], EDMOND R 300.00 AN ANXIETY UNSPEC 07/01/2009 [facility], DEMOND R 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 07/01/2009 FLO GONZALEZ APRN L 296.32 MO DEPRESSIVE RECURRENT MODERATE 07/01/2009 FLO GONZALEZ APRN L 300.00 AN ANXIETY UNSPEC 07/01/2009 ROSITA GONZALEZ APRNA L 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 07/01/2009 SILVERIO DDS, JOSE 296.32 MO DEPRESSIVE RECURRENT MODERATE 07/01/2009 SILVERIO DDS, JOSE 300.00 AN ANXIETY UNSPEC 07/01/2009 SILVERIO DDS, JOSE 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/01/2009 [facility] 296.32 MO DEPRESSIVE RECURRENT MODERATE 07/01/2009 [facility] 300.00 AN ANXIETY UNSPEC 07/01/2009 ANGELA CS, DEMOND R 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 07/01/2009 [facility] R 296.32 MO DEPRESSIVE RECURRENT MODERATE 07/01/2009 [facility], DEMOND R 300.00 AN ANXIETY UNSPEC 07/01/2009 [facility] 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 07/01/2009 ROEL EXHIBIT ARTIST, GODWIN 296.32 MO DEPRESSIVE RECURRENT MODERATE 07/01/2009 ROEL EXHIBIT ARTIST, GODWIN 300.00 AN ANXIETY UNSPEC 07/01/2009 ROEL EXHIBIT ARTIST, GODWIN 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 07/01/2009 NICOLA MANUEL DO K 296.32 MO DEPRESSIVE RECURRENT MODERATE 07/01/2009 NICOLA MANUEL DO K 300.00 AN ANXIETY UNSPEC 07/01/2009 NICOLA MANUEL DO K 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 07/01/2009 ROEL EXHIBIT ARTIST, GODWIN 296.32 MO DEPRESSIVE RECURRENT MODERATE 07/01/2009 ROEL EXHIBIT ARTIST, GODWIN 300.00 AN ANXIETY UNSPEC 07/01/2009 ROEL EXHIBIT ARTIST, GODWIN 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 07/01/2009 ROEL EXHIBIT ARTIST, GODWIN 296.32 MO DEPRESSIVE RECURRENT MODERATE 07/01/2009 ROEL EXHIBIT ARTIST, GODWIN 300.00 AN ANXIETY UNSPEC 07/01/2009 ROEL EXHIBIT ARTIST, GODWIN 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, DEMOND Fernando 300.01 AN PANIC DIS W/O AGORA 07/16/2009 MADL EXHIBIT ARTIST, FLO L 300.01 AN PANIC DIS W/O AGORA 07/16/2009 JOSE SILVERIO DDS 300.01 AN PANIC DIS W/O AGORA 07/16/2009 [facility], DEMOND R 300.01 AN PANIC DIS W/O AGORA 07/16/2009 [facility], DEMOND R 300.01 AN PANIC DIS W/O AGORA 07/16/2009 ROEL EXHIBIT ARTIST, GODWIN 300.01 AN PANIC DIS W/O AGORA 07/16/2009 NICOLA MANUEL DO K 300.01 AN PANIC DIS W/O AGORA 07/16/2009 ROEL EXHIBIT ARTIST, GODWIN 300.01 AN PANIC DIS W/O AGORA 07/16/2009 ROEL EXHIBIT ARTIST, GODWIN 300.01 AN PANIC DIS W/O AGORA [...] Kirkpatrick 307.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 07/25/2009 DALE EXHIBIT ARTIST, JASON Steel 307.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 07/25/2009 GARTON EXHIBIT ARTIST, JASON Steel 307.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 07/25/2009 WOLF JAMA MD 307.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 07/25/2009 ROEL EXHIBIT ARTIST, GODWIN 307.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 07/25/2009 MADL EXHIBIT ARTIST, FLO L 307.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 07/25/2009 ROEL EXHIBIT ARTIST, GODWIN 307.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 07/25/2009 MADL EXHIBIT ARTIST, FLO L 307.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 07/25/2009 ROEL EXHIBIT ARTIST, GODWIN 307.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 07/25/2009 ROEL EXHIBIT ARTIST, GODWIN 307.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 07/25/2009 MADL EXHIBIT ARTIST, FLO L 307.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 07/25/2009 MADL EXHIBIT ARTIST, FLO L 307.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 07/25/2009 ROEL EXHIBIT ARTIST, GODWIN 307.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 07/25/2009 SONNY EXHIBIT ARTIST, ELIAS A 307.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 07/25/2009 [facility], DEMOND R 307.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 07/25/2009 MADL EXHIBIT ARTIST, FLO L 307.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 07/25/2009 JOSE SILVERIO DDS 307.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 07/25/2009 [facility], DEMOND R 307.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 07/25/2009 [facility], DEMOND R 307.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 07/25/2009 ROEL EXHIBIT ARTIST, GODWIN 307.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 07/25/2009 NICOLA MANUEL DO 307.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 07/25/2009 ROEL EXHIBIT ARTIST, GODWIN 307.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 07/25/2009 ROEL EXHIBIT ARTIST, GODWIN 307.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 12/17/2009 WOLF [...] MD 311 DEPRESSIVE DISORDER NOS 12/17/2009 ROEL EXHIBIT ARTIST, GODWIN 311 DEPRESSIVE DISORDER NOS 12/17/2009 MADL EXHIBIT ARTIST, FLO L 311 DEPRESSIVE DISORDER NOS 12/17/2009 ROEL EXHIBIT ARTIST, GODWIN 311 DEPRESSIVE DISORDER NOS 12/17/2009 MADL EXHIBIT ARTIST, FLO L 311 DEPRESSIVE DISORDER NOS 12/17/2009 ROEL EXHIBIT ARTIST, GODWIN 311 DEPRESSIVE DISORDER NOS 12/17/2009 ROEL EXHIBIT ARTIST, GODWIN 311 DEPRESSIVE DISORDER NOS 12/17/2009 MADL EXHIBIT ARTIST, FLO L 311 DEPRESSIVE DISORDER NOS 12/17/2009 MADL EXHIBIT ARTIST, FLO L 311 DEPRESSIVE DISORDER NOS 12/17/2009 ROEL EXHIBIT ARTIST, GODWIN 311 DEPRESSIVE DISORDER NOS 12/17/2009 SONNY EXHIBIT ARTIST, ELIAS A 311 DEPRESSIVE DISORDER NOS 12/17/2009 [facility], DEMOND R 311 DEPRESSIVE DISORDER NOS 12/17/2009 LISA MENGFLO 311 DEPRESSIVE DISORDER NOS 12/17/2009 JOSE SILVERIO DDS 311 DEPRESSIVE DISORDER NOS 12/17/2009 [facility], DEMOND R 311 DEPRESSIVE DISORDER NOS 12/17/2009 [facility], DEMOND R 311 DEPRESSIVE DISORDER NOS 12/17/2009 ROEL EXHIBIT ARTIST, GODWIN 311 DEPRESSIVE DISORDER NOS 12/17/2009 NICOLA MANUEL DO 311 DEPRESSIVE DISORDER NOS 12/17/2009 ROEL EXHIBIT ARTIST, GODWIN 311 DEPRESSIVE DISORDER NOS 12/17/2009 ROEL EXHIBIT ARTIST, GODWIN 311 DEPRESSIVE DISORDER NOS 05/06/2010 Ot 620.2 05/06/2010 Ot 789.04 05/13/2010 EVITA JONES, WOLF V72.31 Refueling Ramp Supervisor Exam, Routine 05/13/2010 WOLF JAMA MD V72.31 Refueling Ramp Supervisor Exam, Routine 05/13/2010 V72.31 Refueling Ramp Supervisor Exam, Routine 05/13/2010 NICOLA MANUEL DO V72.31 Refueling Ramp Supervisor Exam, Routine 05/13/2010 JASON SOLANO DO V72.31 Refueling Ramp Supervisor Exam, Routine 05/13/2010 V72.31 Refueling Ramp Supervisor Exam, Routine 05/13/2010 V72.31 Refueling Ramp Supervisor Exam, Routine 05/13/2010 V72.31 Refueling Ramp Supervisor Exam, Routine 05/13/2010 V72.31 Refueling Ramp Supervisor Exam, Routine 05/13/2010 V72.31 Refueling Ramp Supervisor Exam, Routine 05/13/2010 V72.31 Refueling Ramp Supervisor Exam, Routine 05/13/2010 V72.31 Refueling Ramp Supervisor Exam, Routine 05/13/2010 V72.31 Refueling Ramp Supervisor Exam, Routine 05/13/2010 V72.31 Refueling Ramp Supervisor Exam, Routine 05/13/2010 V72.31 Refueling Ramp Supervisor Exam, Routine 05/13/2010 V72.31 Refueling Ramp Supervisor Exam, Routine 05/13/2010 NICOLA MANUEL DO V72.31 Refueling Ramp Supervisor Exam, Routine 05/13/2010 JASON HUNTER APRN V72.31 Refueling Ramp Supervisor Exam, Routine 05/13/2010 WOLF JAMA MD V72.31 Refueling Ramp Supervisor Exam, Routine 05/13/2010 NICOLA MANUEL DO V72.31 Refueling Ramp Supervisor Exam, Routine 05/13/2010 KELY FRIEDMAN DDS V72.31 Refueling Ramp Supervisor Exam, Routine 05/13/2010 JASON HUNTER APRN V72.31 Refueling Ramp Supervisor Exam, Routine 05/13/2010 JASON HUNTER APRN V72.31 Refueling Ramp Supervisor Exam, Routine 05/13/2010 DALE MENG, JASON Steel V72.31 Refueling Ramp Supervisor Exam, Routine 05/13/2010 EVITA JONES, WOLF V72.31 Refueling Ramp Supervisor Exam, Routine 05/13/2010 ROEL EXHIBIT ARTIST, GODWIN V72.31 Refueling Ramp Supervisor Exam, Routine 05/13/2010 MADL EXHIBIT ARTIST, FLO L V72.31 Refueling Ramp Supervisor Exam, Routine 05/13/2010 ROEL EXHIBIT ARTIST, GODWIN V72.31 Refueling Ramp Supervisor Exam, Routine 05/13/2010 MADL EXHIBIT ARTIST, FLO L V72.31 Refueling Ramp Supervisor Exam, Routine 05/13/2010 ROEL EXHIBIT ARTIST, GODWIN V72.31 Refueling Ramp Supervisor Exam, Routine 05/13/2010 ROEL EXHIBIT ARTIST, GODWIN V72.31 Refueling Ramp Supervisor Exam, Routine 05/13/2010 MADL EXHIBIT ARTIST, FLO L V72.31 Refueling Ramp Supervisor Exam, Routine 05/13/2010 MADL EXHIBIT ARTIST, FLO L V72.31 Refueling Ramp Supervisor Exam, Routine 05/13/2010 ROEL EXHIBIT ARTIST, GODWIN V72.31 Refueling Ramp Supervisor Exam, Routine 05/13/2010 SONNY MENG, ELIAS Castañeda V72.31 Refueling Ramp Supervisor Exam, Routine 05/13/2010 [facility], DEMOND R V72.31 Refueling Ramp Supervisor Exam, Routine 05/13/2010 MADL EXHIBIT ARTIST, FLO L V72.31 Refueling Ramp Supervisor Exam, Routine 05/13/2010 JOSE SILVERIO DDS V72.31 Refueling Ramp Supervisor Exam, Routine 05/13/2010 [facility], DEMOND R V72.31 Refueling Ramp Supervisor Exam, Routine 05/13/2010 [facility], DEMOND R V72.31 Refueling Ramp Supervisor Exam, Routine 05/13/2010 ROEL EXHIBIT ARTIST, GODWIN V72.31 Refueling Ramp Supervisor Exam, Routine 05/13/2010 NICOLA MANUEL DO V72.31 Refueling Ramp Supervisor Exam, Routine 05/13/2010 ROEL EXHIBIT ARTIST, GODWIN V72.31 Refueling Ramp Supervisor Exam, Routine 05/13/2010 ROEL EXHIBIT ARTIST, GODWIN V72.31 Refueling Ramp Supervisor Exam, Routine 05/26/2010 Ot 526.9 05/26/2010 Ot [...] Hypopotassemia 09/29/2011 276.8 Hypopotassemia 09/29/2011 MANUEL DO, NICOAL K 276.8 Hypopotassemia 09/29/2011 JASON HUNTER APRN [...] ROEL MENG GODWIN 276.8 Hypopotassemia 09/29/2011 LISA EXHIBIT ARTIST, FLO L 276.8 Hypopotassemia 09/29/2011 ROEL EXHIBIT ARTIST, GODWIN 276.8 Hypopotassemia 09/29/2011 ROEL MENG, GODWIN 276.8 Hypopotassemia 09/29/2011 LISA MENG, FLO L 276.8 Hypopotassemia 09/29/2011 LISA MENG, FLO L 276.8 Hypopotassemia 09/29/2011 ROEL MENG GODWIN 276.8 Hypopotassemia 09/29/2011 ELIAS DENNIS APRN A 276.8 Hypopotassemia 09/29/2011 [facility], DEMOND R 276.8 Hypopotassemia 09/29/2011 LISA TAQUERIA FLO Alfred 276.8 Hypopotassemia 09/29/2011 NUSRAT ALICESJOSE 276.8 Hypopotassemia 09/29/2011 [facility], DEMOND R 276.8 Hypopotassemia 09/29/2011 [facility], DEMOND R 276.8 Hypopotassemia 09/29/2011 ROEL EXHIBIT ARTIST, GODWIN 276.8 Hypopotassemia 09/29/2011 NICOLA MANUEL DO 276.8 Hypopotassemia 09/29/2011 ROEL EXHIBIT ARTIST, GODWIN 276.8 Hypopotassemia 09/29/2011 ROEL EXHIBIT ARTIST, GODWIN 276.8 Hypopotassemia 12/13/2011 WOLF JAMA MD [...] Unspecified Disease Of The Jaws 12/13/2011 ROEL EXHIBIT ARTIST, GODWIN 526.9 Unspecified Disease Of The Jaws 12/13/2011 MADL TAQUERIA, FLO L 526.9 Unspecified Disease Of The Jaws 12/13/2011 ROEL EXHIBIT ARTIST, GODWIN 526.9 Unspecified Disease Of The Jaws 12/13/2011 MADL EXHIBIT ARTIST, FLO L 526.9 Unspecified Disease Of The Jaws 12/13/2011 ROEL EXHIBIT ARTIST, GODWIN 526.9 Unspecified Disease Of The Jaws 12/13/2011 OREL EXHIBIT ARTIST, GODWIN 526.9 Unspecified Disease Of The Jaws 12/13/2011 MADL EXHIBIT ARTIST, FLO L 526.9 Unspecified Disease Of The Jaws 12/13/2011 MADL EXHIBIT ARTIST, FLO L 526.9 Unspecified Disease Of The Jaws 12/13/2011 ROEL EXHIBIT ARTIST, GODWIN 526.9 Unspecified Disease Of The Jaws 12/13/2011 ELIAS DENNIS APRN 526.9 Unspecified Disease Of The Jaws 12/13/2011 ANGELA DEMOND CHOUDHURY 526.9 Unspecified Disease Of The Jaws 12/13/2011 MADL EXHIBIT ARTIST, FLO L 526.9 Unspecified Disease Of The Jaws 12/13/2011 JOSE SILVERIO DDS 526.9 Unspecified Disease Of The Jaws 12/13/2011 [facility], DEMOND R 526.9 Unspecified Disease Of The Jaws 12/13/2011 [facility], DEMOND R 526.9 Unspecified Disease Of The Jaws 12/13/2011 ROEL EXHIBIT ARTIST, GODWIN 526.9 Unspecified Disease Of The Jaws 12/13/2011 NICOLA MANUEL DO 526.9 Unspecified Disease Of The Jaws 12/13/2011 ROEL EXHIBIT ARTIST, GODWIN 526.9 Unspecified Disease Of The Jaws 12/13/2011 ROEL EXHIBIT ARTIST, GODWIN 526.9 Unspecified Disease Of The Jaws [...] APRNWNYA L V25.9 Contraception Management 12/29/2011 MADL EXHIBIT ARTIST, FLO L V76.2 Cervical Cancer Screening (pap Smear) 12/29/2011 ROEL EXHIBIT ARTIST, GODWIN 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 12/29/2011 ROEL EXHIBIT ARTIST, GODWIN 427.89 Other Specified Cardiac Dysrhythmias 12/29/2011 ROEL EXHIBIT ARTIST, GODWIN V25.9 Contraception Management 12/29/2011 ROEL EXHIBIT ARTIST, GODWIN V76.2 Cervical Cancer Screening (pap Smear) 12/29/2011 MADL EXHIBIT ARTIST, FLO L 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 12/29/2011 MADL EXHIBIT ARTIST, FLO L 427.89 Other Specified Cardiac Dysrhythmias 12/29/2011 MADL EXHIBIT ARTIST, FLO L V25.9 Contraception Management 12/29/2011 MADL EXHIBIT ARTIST, FLO L V76.2 Cervical Cancer Screening (pap Smear) 12/29/2011 ROEL EXHIBIT ARTIST, GODWIN 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 12/29/2011 ROEL EXHIBIT ARTIST, GODWIN 427.89 Other Specified Cardiac Dysrhythmias 12/29/2011 ROEL EXHIBIT ARTIST, GODWIN V25.9 Contraception Management 12/29/2011 ROEL EXHIBIT ARTIST, GODWIN V76.2 Cervical Cancer Screening (pap Smear) 12/29/2011 ROEL EXHIBIT ARTIST, GODWIN 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 12/29/2011 ROEL EXHIBIT ARTIST, GODWIN 427.89 Other Specified Cardiac Dysrhythmias 12/29/2011 ROEL EXHIBIT ARTIST, GODWIN V25.9 Contraception Management 12/29/2011 ROEL EXHIBIT ARTIST, GODWIN V76.2 Cervical Cancer Screening (pap Smear) 12/29/2011 MADL EXHIBIT ARTIST, FLO L 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 12/29/2011 MADL EXHIBIT ARTIST, FLO L 427.89 Other Specified Cardiac Dysrhythmias 12/29/2011 MADL EXHIBIT ARTIST, FLO L V25.9 Contraception Management 12/29/2011 MADL EXHIBIT ARTIST, FLO L V76.2 Cervical Cancer Screening (pap Smear) 12/29/2011 MADL EXHIBIT ARTIST, FLO L 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 12/29/2011 MADL EXHIBIT ARTIST, FLO L 427.89 Other Specified Cardiac Dysrhythmias 12/29/2011 MADL EXHIBIT ARTIST, FLO L V25.9 Contraception Management 12/29/2011 MADL EXHIBIT ARTIST, FLO L V76.2 Cervical Cancer Screening (pap Smear) 12/29/2011 GODWIN SEVILLA APRN 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 12/29/2011 ROEL EXHIBIT ARTIST, GODWIN 427.89 Other Specified Cardiac Dysrhythmias 12/29/2011 ROEL EXHIBIT ARTIST, GODWIN V25.9 Contraception Management 12/29/2011 ROEL EXHIBIT ARTIST, GODWIN V76.2 Cervical Cancer Screening (pap Smear) 12/29/2011 SONNY EXHIBIT ARTIST, ELIAS A 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 12/29/2011 SONNY EXHIBIT ARTIST, ELIAS A 427.89 Other Specified Cardiac Dysrhythmias 12/29/2011 SONNY EXHIBIT ARTIST, ELIAS A V25.9 Contraception Management 12/29/2011 SONNY EXHIBIT ARTIST, ELIAS A V76.2 Cervical Cancer Screening (pap Smear) 12/29/2011 [facility], DEMOND R 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 12/29/2011 [facility], DEMOND R 427.89 Other Specified Cardiac Dysrhythmias 12/29/2011 [facility], DEMOND R V25.9 Contraception Management 12/29/2011 [facility], DEMOND Fernando V76.2 Cervical Cancer Screening (pap Smear) 12/29/2011 LISA MENG, FLO L 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 12/29/2011 [facility]L [employer], FLO L 427.89 Other Specified Cardiac Dysrhythmias 12/29/2011 [facility] [employer], FLO L V25.9 Contraception Management 12/29/2011 [facility] [employer], FLO L V76.2 Cervical Cancer Screening (pap Smear) 12/29/2011 JOSE SILVERIO DDS 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 12/29/2011 NUSRAT JENKINSSJOSE 427.89 Other Specified Cardiac Dysrhythmias 12/29/2011 SILVERIO ALICESJOSE V25.9 Contraception Management 12/29/2011 NUSRAT JENKINSSJOSE V76.2 Cervical Cancer Screening (pap Smear) 12/29/2011 [facility], DEMOND R 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 12/29/2011 [facility], DEMOND R 427.89 Other Specified Cardiac Dysrhythmias 12/29/2011 [facility], DEMOND R V25.9 Contraception Management 12/29/2011 [facility], DEMOND R V76.2 Cervical Cancer Screening (pap Smear) 12/29/2011 [facility], DEMOND R 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 12/29/2011 [facility], DEMOND R 427.89 Other Specified Cardiac Dysrhythmias 12/29/2011 [facility], DEMOND R V25.9 Contraception Management 12/29/2011 [facility], DEMOND R V76.2 Cervical Cancer Screening (pap Smear) 12/29/2011 [employer] [employer], GODWIN 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 12/29/2011 [employer], GODWIN 427.89 Other Specified Cardiac Dysrhythmias 12/29/2011 [employer], GODWIN V25.9 Contraception Management 12/29/2011 [employer], GODWIN V76.2 Cervical Cancer Screening (pap Smear) 12/29/2011 NICOLA MANUEL DO 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 12/29/2011 NICOLA MANUEL DO 427.89 Other Specified Cardiac Dysrhythmias 12/29/2011 NICOLA MANUEL DO V25.9 Contraception Management 12/29/2011 NICOLA MANUEL DO V76.2 Cervical Cancer Screening (pap Smear) 12/29/2011 [employer], GODWIN 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 12/29/2011 [employer], GODWIN 427.89 Other Specified Cardiac Dysrhythmias 12/29/2011 [employer], GODWIN V25.9 Contraception Management 12/29/2011 [employer], GODWIN V76.2 Cervical Cancer Screening (pap Smear) 12/29/2011 [employer], GODWIN 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 12/29/2011 [employer], GODWIN 427.89 Other Specified Cardiac Dysrhythmias 12/29/2011 [employer], GODWIN V25.9 Contraception Management 12/29/2011 [employer], GODWIN V76.2 Cervical Cancer Screening (pap Smear) [...] Squamous Intraepithelial Lesion ( lgsil) 01/25/2012 [employer] [employer], JASON D 427.9 Arrhythmia, Cardiac (sinus) 01/25/2012 [...] Grade Squamous Intraepithelial Lesion (lgsil) 01/25/2012 [employer], GODWIN 427.9 Arrhythmia, Cardiac (sinus) 01/25/2012 ROEL EXHIBIT ARTIST, GODWIN 786.50 Unspecified Chest Pain 01/25/2012 ROEL EXHIBIT ARTIST, GODWIN 795.03 Papanicolaou Smear Of Cervix With Low Grade Squamous Intraepithelial Lesion (lgsil) 01/25/2012 MADL EXHIBIT ARTIST, FLO L 427.9 Arrhythmia, Cardiac (sinus) 01/25/2012 MADL EXHIBIT ARTIST, FLO L 786.50 Unspecified Chest Pain 01/25/2012 MADL EXHIBIT ARTIST, FLO L 795.03 Papanicolaou Smear Of Cervix With Low Grade Squamous Intraepithelial Lesion (lgsil) 01/25/2012 ROEL EXHIBIT ARTIST, GODWIN 427.9 Arrhythmia, Cardiac (sinus) 01/25/2012 ROEL EXHIBIT ARTIST, GODWIN 786.50 Unspecified Chest Pain 01/25/2012 ROEL EXHIBIT ARTIST, GODWIN 795.03 Papanicolaou Smear Of Cervix With Low Grade Squamous Intraepithelial Lesion (lgsil) 01/25/2012 MADL EXHIBIT ARTIST, FLO L 427.9 Arrhythmia, Cardiac (sinus) 01/25/2012 MADL EXHIBIT ARTIST, FLO L 786.50 Unspecified Chest Pain 01/25/2012 MADL EXHIBIT ARTIST, FLO L 795.03 Papanicolaou Smear Of Cervix With Low Grade Squamous Intraepithelial Lesion (lgsil) 01/25/2012 ROEL EXHIBIT ARTIST, GODWIN 427.9 Arrhythmia, Cardiac (sinus) 01/25/2012 ROEL EXHIBIT ARTIST, GODWIN 786.50 Unspecified Chest Pain 01/25/2012 ROEL EXHIBIT ARTIST, GODWIN 795.03 Papanicolaou Smear Of Cervix With Low Grade Squamous Intraepithelial Lesion (lgsil) 01/25/2012 ROEL EXHIBIT ARTIST, GODWIN 427.9 Arrhythmia, Cardiac (sinus) 01/25/2012 ROEL EXHIBIT ARTIST, GODWIN 786.50 Unspecified Chest Pain 01/25/2012 ROEL EXHIBIT ARTIST, GODWIN 795.03 Papanicolaou Smear Of Cervix With Low Grade Squamous Intraepithelial Lesion (lgsil) 01/25/2012 MADL EXHIBIT ARTIST, FLO L 427.9 Arrhythmia, Cardiac (sinus) 01/25/2012 MADL EXHIBIT ARTIST, FLO L 786.50 Unspecified Chest Pain 01/25/2012 MADL EXHIBIT ARTIST, FLO L 795.03 Papanicolaou Smear Of Cervix With Low Grade Squamous Intraepithelial Lesion (lgsil) 01/25/2012 MADL EXHIBIT ARTIST, FLO L 427.9 Arrhythmia, Cardiac (sinus) 01/25/2012 MADL EXHIBIT ARTIST, FLO L 786.50 Unspecified Chest Pain 01/25/2012 MADL EXHIBIT ARTIST, FLO L 795.03 Papanicolaou Smear Of Cervix With Low Grade Squamous Intraepithelial Lesion (lgsil) 01/25/2012 ROEL MENG GODWIN 427.9 Arrhythmia, Cardiac (sinus) 01/25/2012 ROEL EXHIBIT ARTIST, GODWIN 786.50 Unspecified Chest Pain 01/25/2012 ROEL EXHIBIT ARTIST, GODWIN 795.03 Papanicolaou Smear Of Cervix With Low Grade Squamous Intraepithelial Lesion (lgsil) 01/25/2012 SONNY MENG ELIAS A 427.9 Arrhythmia, Cardiac (sinus) 01/25/2012 SONNY MENG, ELIAS A 786.50 Unspecified Chest Pain 01/25/2012 SONNY MENG, ELIAS A 795.03 Papanicolaou Smear Of Cervix With Low Grade Squamous Intraepithelial Lesion (lgsil) 01/25/2012 [facility], DEMOND R 427.9 Arrhythmia, Cardiac (sinus) 01/25/2012 [facility] 786.50 Unspecified Chest Pain 01/25/2012 [facility] R 795.03 Papanicolaou Smear Of Cervix With Low Grade Squamous Intraepithelial Lesion (lgsil) 01/25/2012 MADL EXHIBIT ARTIST, FLO L 427.9 Arrhythmia, Cardiac (sinus) 01/25/2012 MADL EXHIBIT ARTIST, FLO L 786.50 Unspecified Chest Pain 01/25/2012 MADL EXHIBIT ARTIST, FLO L 795.03 Papanicolaou Smear Of Cervix With Low Grade Squamous Intraepithelial Lesion (lgsil) 01/25/2012 SILVERIO DDS, JOSE 427.9 Arrhythmia, Cardiac (sinus) 01/25/2012 SILVERIO DDS, JOSE 786.50 Unspecified Chest Pain 01/25/2012 SILVERIO DDS, JOSE 795.03 Papanicolaou Smear Of Cervix With Low Grade Squamous Intraepithelial Lesion (lgsil) 01/25/2012 [facility] DEM[facility] R 427.9 Arrhythmia, Cardiac (sinus) 01/25/2012 [facility], DEMOND R 786.50 Unspecified Chest Pain 01/25/2012 [facility], DEMOND R 795.03 Papanicolaou Smear Of Cervix With Low Grade Squamous Intraepithelial Lesion (lgsil) 01/25/2012 [facility], DEMOND R 427.9 Arrhythmia, Cardiac (sinus) 01/25/2012 [facility] R 786.50 Unspecified Chest Pain 01/25/2012 [facility] DEM[facility] R 795.03 Papanicolaou Smear Of Cervix With Low Grade Squamous Intraepithelial Lesion (lgsil) 01/25/2012 ROEL EXHIBIT ARTIST, GODWIN 427.9 Arrhythmia, Cardiac (sinus) 01/25/2012 ROEL EXHIBIT ARTIST, GODWIN 786.50 Unspecified Chest Pain 01/25/2012 ROEL EXHIBIT ARTIST, GODWIN 795.03 Papanicolaou Smear Of Cervix With Low Grade Squamous Intraepithelial Lesion (lgsil) 01/25/2012 NICOLA MANUEL DO K 427.9 Arrhythmia, Cardiac (sinus) 01/25/2012 NICOLA MANUEL DO K 786.50 Unspecified Chest Pain 01/25/2012 NICOLA MANUEL DO K 795.03 Papanicolaou Smear Of Cervix With Low Grade Squamous Intraepithelial Lesion ( lgsil) 01/25/2012 ROEL EXHIBIT ARTIST, GODWIN 427.9 Arrhythmia, Cardiac (sinus) 01/25/2012 ROEL EXHIBIT ARTIST, GODWIN 786.50 Unspecified Chest Pain 01/25/2012 ROEL EXHIBIT ARTIST, GODWIN 795.03 Papanicolaou Smear Of Cervix With Low Grade Squamous Intraepithelial Lesion (lgsil) 01/25/2012 ROEL EXHIBIT ARTIST, GODWIN 427.9 Arrhythmia, Cardiac (sinus) 01/25/2012 ROEL EXHIBIT ARTIST, GODWIN 786.50 Unspecified Chest Pain 01/25/2012 GODWIN [...] APRN L 724.5 Backache Unspecified 06/25/2012 MADL EXHIBIT ARTIST, FLO L 789.00 abdominal pain 06/25/2012 ROEL EXHIBIT ARTIST, GODWIN 724.5 Backache Unspecified 06/25/2012 ROEL EXHIBIT ARTIST, GODWIN 789.00 abdominal pain 06/25/2012 ROEL EXHIBIT ARTIST, GODWIN 724.5 Backache Unspecified 06/25/2012 ROEL EXHIBIT ARTIST, GODWIN 789.00 abdominal pain 06/25/2012 MADL EXHIBIT ARTIST, FLO L 724.5 Backache Unspecified 06/25/2012 MADL EXHIBIT ARTIST, FLO L 789.00 abdominal pain 06/25/2012 MADL EXHIBIT ARTIST, FLO L 724.5 Backache Unspecified 06/25/2012 MADL EXHIBIT ARTIST, FLO L 789.00 abdominal pain 06/25/2012 ROEL EXHIBIT ARTIST, GODWIN 724.5 Backache Unspecified 06/25/2012 ROEL EXHIBIT ARTIST, GODWIN 789.00 abdominal pain 06/25/2012 SONNY EXHIBIT ARTIST, ELIAS A 724.5 Backache Unspecified 06/25/2012 SONNY EXHIBIT ARTIST, ELIAS A 789.00 abdominal pain 06/25/2012 [facility], DEMOND R 724.5 Backache Unspecified 06/25/2012 [facility], DEMOND R 789.00 abdominal pain 06/25/2012 MADL EXHIBIT ARTIST, FLO L 724.5 Backache Unspecified 06/25/2012 MADL EXHIBIT ARTIST, FLO L 789.00 abdominal pain 06/25/2012 SILVERIO DDS, JOSE 724.5 Backache Unspecified 06/25/2012 SILVERIO DDS, JOSE 789.00 abdominal pain 06/25/2012 [facility], DEMOND R 724.5 Backache Unspecified 06/25/2012 [facility], DEMOND R 789.00 abdominal pain 06/25/2012 [facility], DEMOND R 724.5 Backache Unspecified 06/25/2012 [facility], DEMOND R 789.00 abdominal pain 06/25/2012 ROEL EXHIBIT ARTIST, GODWIN 724.5 Backache Unspecified 06/25/2012 ROEL EXHIBIT ARTIST, GODWIN 789.00 abdominal pain 06/25/2012 MANUEL DO NICOLA K 724.5 Backache Unspecified 06/25/2012 MANUEL DO, NICOLA K 789.00 abdominal pain 06/25/2012 ROEL EXHIBIT ARTIST, GODWIN 724.5 Backache Unspecified 06/25/2012 ROEL EXHIBIT ARTIST, GODWIN 789.00 abdominal pain 06/25/2012 ROEL EXHIBIT ARTIST, GODWIN 724.5 Backache Unspecified 06/25/2012 ROEL EXHIBIT ARTIST, GODWIN 789.00 abdominal pain 06/27/2012 EVITA JONES, [...] DDSKELY J 786.50 Chest Pain 06/27/2012 GARTON EXHIBIT ARTIST, JASON D 785.1 Palpitations 06/27/2012 DALE EXHIBIT ARTISTASHLEY KirkpatrickJASON D 786.05 Shortness Of Breath 06/27/2012 BRIANMYRA EXHIBIT ARTISTASHLEY KirkpatrickJASON D 786.50 Chest Pain 06/27/2012 BRIANMYRA EXHIBIT ARTISTAMAURY KirkpatrickJASON D 785.1 Palpitations 06/27/2012 DALE EXHIBIT ARTISTASHLEY KirkpatrickJASON D 786.05 Shortness Of Breath 06/27/2012 DALE ASHLEY MENGBETH D 786.50 Chest Pain 06/27/2012 DALE EXHIBIT ARTISTASHLEY KirkpatrickJASON D 785.1 Palpitations 06/27/2012 DALE ASHLEY MENGBETH D 786.05 Shortness Of Breath 06/27/2012 JASON HUNTER APRN D 786.50 Chest Pain 06/27/2012 WOLF JAMA MD 785.1 Palpitations 06/27/2012 WOLF JAMA MD 786.05 Shortness Of Breath 06/27/2012 WOLF JAMA MD 786.50 Chest Pain 06/27/2012 ROEL EXHIBIT ARTIST, GODWIN 785.1 Palpitations 06/27/2012 ROEL EXHIBIT ARTIST, GODWIN 786.05 Shortness Of Breath 06/27/2012 ROEL EXHIBIT ARTIST, GODWIN 786.50 Chest Pain 06/27/2012 MADL EXHIBIT ARTIST, FLO L 785.1 Palpitations 06/27/2012 MADL EXHIBIT ARTIST, FLO L 786.05 Shortness Of Breath 06/27/2012 MADL EXHIBIT ARTIST, FLO L 786.50 Chest Pain 06/27/2012 ROEL EXHIBIT ARTIST, GODWIN 785.1 Palpitations 06/27/2012 ROEL EXHIBIT ARTIST, GODWIN 786.05 Shortness Of Breath 06/27/2012 ROEL EXHIBIT ARTIST, GODWIN 786.50 Chest Pain 06/27/2012 MADL EXHIBIT ARTIST, FLO L 785.1 Palpitations 06/27/2012 MADL EXHIBIT ARTIST, FLO L 786.05 Shortness Of Breath 06/27/2012 MADL EXHIBIT ARTIST, FLO L 786.50 Chest Pain 06/27/2012 ROEL EXHIBIT ARTIST, GODWIN 785.1 Palpitations 06/27/2012 ROEL EXHIBIT ARTIST, GODWIN 786.05 Shortness Of Breath 06/27/2012 ROEL EXHIBIT ARTIST, GODWIN 786.50 Chest Pain 06/27/2012 ROEL EXHIBIT ARTIST, GODWIN 785.1 Palpitations 06/27/2012 ROEL EXHIBIT ARTIST, GODWIN 786.05 Shortness Of Breath 06/27/2012 ROEL EXHIBIT ARTIST, GODWIN 786.50 Chest Pain 06/27/2012 MADL EXHIBIT ARTIST, LFO L 785.1 Palpitations 06/27/2012 MADL EXHIBIT ARTIST, FLO L 786.05 Shortness Of Breath 06/27/2012 MADL EXHIBIT ARTIST, FLO L 786.50 Chest Pain 06/27/2012 MADL EXHIBIT ARTIST, FLO L 785.1 Palpitations 06/27/2012 MADL EXHIBIT ARTIST, FLO L 786.05 Shortness Of Breath 06/27/2012 MADL EXHIBIT ARTIST, FLO L 786.50 Chest Pain 06/27/2012 ROEL EXHIBIT ARTIST, GODWIN 785.1 Palpitations 06/27/2012 ROEL EXHIBIT ARTIST, GODWIN 786.05 Shortness Of Breath 06/27/2012 ROEL EXHIBIT ARTIST, GODWIN 786.50 Chest Pain 06/27/2012 SONNY EXHIBIT ARTIST, ELIAS A 785.1 Palpitations 06/27/2012 SONNY EXHIBIT ARTIST, ELIAS A 786.05 Shortness Of Breath 06/27/2012 SONNY EXHIBIT ARTIST, ELIAS A 786.50 Chest Pain 06/27/2012 [facility], DEMOND R 785.1 Palpitations 06/27/2012 [facility], DEMOND R 786.05 Shortness Of Breath 06/27/2012 [facility] 786.50 Chest Pain 06/27/2012 MADL EXHIBIT ARTIST, FLO L 785.1 Palpitations 06/27/2012 MADL EXHIBIT ARTIST, FLO L 786.05 Shortness Of Breath 06/27/2012 MADL EXHIBIT ARTIST, FLO L 786.50 Chest Pain 06/27/2012 SILVERIO [...] DEMOND R 786.50 Chest Pain 06/27/2012 ROEL EXHIBIT ARTIST, GODWIN 785.1 Palpitations 06/27/2012 ROEL EXHIBIT ARTIST, GODWIN 786.05 Shortness Of Breath 06/27/2012 ROEL EXHIBIT ARTIST, GODWIN 786.50 Chest Pain 06/27/2012 MANUEL DO, NICOLA K 785.1 Palpitations 06/27/2012 MANUEL DO, NICOLA K 786.05 Shortness Of Breath 06/27/2012 MANUEL DO, NICOLA K 786.50 Chest Pain 06/27/2012 ROEL EXHIBIT ARTIST, GODWIN 785.1 Palpitations 06/27/2012 ROEL EXHIBIT ARTIST, GODWIN 786.05 Shortness Of Breath 06/27/2012 ROEL EXHIBIT ARTIST, GODWIN 786.50 Chest Pain 06/27/2012 ROEL EXHIBIT ARTIST, GODWIN 785.1 Palpitations 06/27/2012 ROEL EXHIBIT ARTIST, GODWIN 786.05 Shortness Of Breath 06/27/2012 ROEL EXHIBIT ARTIST, GODWIN 786.50 Chest Pain 08/07/2012 WOLF JAMA [...] Cervical Cancer Screening (pap Smear) 08/07/2012 ROEL EXHIBIT ARTIST, GODWIN 617.9 ENDOMETRIOSIS SITE UNSPECIFIED 08/07/2012 ROEL EXHIBIT ARTIST, GODWIN 625.9 Pelvic Pain 08/07/2012 ROEL EXHIBIT ARTIST, GODWIN V05.3 Hep B (adult) Dx 08/07/2012 ROEL EXHIBIT ARTIST, GODWIN V76.2 Cervical Cancer Screening (pap Smear) 08/07/2012 MADL EXHIBIT ARTIST, FLO L 617.9 ENDOMETRIOSIS SITE UNSPECIFIED 08/07/2012 MADL EXHIBIT ARTIST, FLO L 625.9 Pelvic Pain 08/07/2012 MADL EXHIBIT ARTIST, FLO L V05.3 Hep B (adult) Dx 08/07/2012 MADL EXHIBIT ARTIST, FLO L V76.2 Cervical Cancer Screening (pap Smear) 08/07/2012 ROEL EXHIBIT ARTIST, GODWIN 617.9 ENDOMETRIOSIS SITE UNSPECIFIED 08/07/2012 ROEL EXHIBIT ARTIST, GODWIN 625.9 Pelvic Pain 08/07/2012 ROEL EXHIBIT ARTIST, GODWIN V05.3 Hep B (adult) Dx 08/07/2012 ROEL EXHIBIT ARTIST, GODWIN V76.2 Cervical Cancer Screening (pap Smear) 08/07/2012 MADL EXHIBIT ARTIST, FLO L 617.9 ENDOMETRIOSIS SITE UNSPECIFIED 08/07/2012 MADL EXHIBIT ARTIST, FLO L 625.9 Pelvic Pain 08/07/2012 MADL EXHIBIT ARTIST, FLO L V05.3 Hep B (adult) Dx 08/07/2012 MADL EXHIBIT ARTIST, FLO L V76.2 Cervical Cancer Screening (pap Smear) 08/07/2012 ROEL EXHIBIT ARTIST, GODWIN 617.9 ENDOMETRIOSIS SITE UNSPECIFIED 08/07/2012 ROEL EXHIBIT ARTIST, GODWIN 625.9 Pelvic Pain 08/07/2012 ROEL EXHIBIT ARTIST, GODWIN V05.3 Hep B (adult) Dx 08/07/2012 ROEL EXHIBIT ARTIST, GODWIN V76.2 Cervical Cancer Screening (pap Smear) 08/07/2012 ROEL EXHIBIT ARTIST, GODWIN 617.9 ENDOMETRIOSIS SITE UNSPECIFIED 08/07/2012 ROEL EXHIBIT ARTIST, GODWIN 625.9 Pelvic Pain 08/07/2012 ROEL EXHIBIT ARTIST, GODWIN V05.3 Hep B (adult) Dx 08/07/2012 ROEL EXHIBIT ARTIST, GODWIN V76.2 Cervical Cancer Screening (pap Smear) 08/07/2012 MADL EXHIBIT ARTIST, FLO L 617.9 ENDOMETRIOSIS SITE UNSPECIFIED 08/07/2012 MADL EXHIBIT ARTIST, FLO L 625.9 Pelvic Pain 08/07/2012 MADL EXHIBIT ARTIST, FLO L V05.3 Hep B (adult) Dx 08/07/2012 MADL EXHIBIT ARTIST, FLO L V76.2 Cervical Cancer Screening (pap Smear) 08/07/2012 MADL EXHIBIT ARTIST, FLO L 617.9 ENDOMETRIOSIS SITE UNSPECIFIED 08/07/2012 MADL EXHIBIT ARTIST, FLO L 625.9 Pelvic Pain 08/07/2012 MADL EXHIBIT ARTIST, FLO L V05.3 Hep B (adult) Dx 08/07/2012 MADL EXHIBIT ARTIST, FLO L V76.2 Cervical Cancer Screening (pap Smear) 08/07/2012 ROEL EXHIBIT ARTIST, GODWIN 617.9 ENDOMETRIOSIS SITE UNSPECIFIED 08/07/2012 ROEL EXHIBIT ARTIST, GODWIN 625.9 Pelvic Pain 08/07/2012 ROEL EXHIBIT ARTIST, GODWIN V05.3 Hep B (adult) Dx 08/07/2012 ROEL EXHIBIT ARTIST, GODWIN V76.2 Cervical Cancer Screening (pap Smear) 08/07/2012 SONNY EXHIBIT ARTIST, ELIAS A 617.9 ENDOMETRIOSIS SITE UNSPECIFIED 08/07/2012 SONNY EXHIBIT ARTIST, ELIAS A 625.9 Pelvic Pain 08/07/2012 SONNY EXHIBIT ARTIST, ELIAS A V05.3 Hep B (adult) Dx 08/07/2012 SONNY EXHIBIT ARTIST, ELIAS A V76.2 Cervical Cancer Screening (pap Smear) 08/07/2012 [facility], DEMOND R 617.9 ENDOMETRIOSIS SITE UNSPECIFIED 08/07/2012 [facility], DEMOND R 625.9 Pelvic Pain 08/07/2012 [facility], DEMOND R V05.3 Hep B (adult) Dx 08/07/2012 [facility], DEMOND R V76.2 Cervical Cancer Screening (pap Smear) 08/07/2012 MADL EXHIBIT ARTIST, FLO L 617.9 ENDOMETRIOSIS SITE UNSPECIFIED 08/07/2012 MADL EXHIBIT ARTIST, FLO L 625.9 Pelvic Pain 08/07/2012 MADL EXHIBIT ARTIST, FLO L V05.3 Hep B (adult) Dx 08/07/2012 MADL EXHIBIT ARTIST, FLO L V76.2 Cervical Cancer Screening (pap Smear) 08/07/2012 NUSRAT DDS, JOSE 617.9 ENDOMETRIOSIS SITE UNSPECIFIED 08/07/2012 SILVERIO DDS, JOSE 625.9 Pelvic Pain 08/07/2012 SILVERIO DDS, JOSE V05.3 Hep B (adult) Dx 08/07/2012 SILVERIO DDS, JOSE V76.2 Cervical Cancer Screening (pap Smear) 08/07/2012 [facility], DEMOND R 617.9 ENDOMETRIOSIS SITE UNSPECIFIED 08/07/2012 [facility] 625.9 Pelvic Pain 08/07/2012 [facility] R V05.3 Hep B (adult) Dx 08/07/2012 [facility], DEMOND R V76.2 Cervical Cancer Screening (pap Smear) 08/07/2012 [facility] 617.9 ENDOMETRIOSIS SITE UNSPECIFIED 08/07/2012 [facility] R 625.9 Pelvic Pain 08/07/2012 [facility] R V05.3 Hep B (adult) Dx 08/07/2012 [facility], DEMOND R V76.2 Cervical Cancer Screening (pap Smear) 08/07/2012 ROEL EXHIBIT ARTIST, GODWIN 617.9 ENDOMETRIOSIS SITE UNSPECIFIED 08/07/2012 ROEL EXHIBIT ARTIST, GODWIN 625.9 Pelvic Pain 08/07/2012 ROEL EXHIBIT ARTIST, GODWIN V05.3 Hep B (adult) Dx 08/07/2012 ROEL EXHIBIT ARTIST, GODWIN V76.2 Cervical Cancer Screening (pap Smear) 08/07/2012 MANUEL DOMARALA K 617.9 ENDOMETRIOSIS SITE UNSPECIFIED 08/07/2012 MANUEL DO NICOLA K 625.9 Pelvic Pain 08/07/2012 MANUEL DOMARALA K V05.3 Hep B (adult) Dx 08/07/2012 MANUEL DO, NICOLA K V76.2 Cervical Cancer Screening (pap Smear) 08/07/2012 ROEL EXHIBIT ARTIST, GODWIN 617.9 ENDOMETRIOSIS SITE UNSPECIFIED 08/07/2012 ROEL EXHIBIT ARTIST, GODWIN 625.9 Pelvic Pain 08/07/2012 ROEL EXHIBIT ARTIST, GODWIN V05.3 Hep B (adult) Dx 08/07/2012 ROEL EXHIBIT ARTIST, GODWIN V76.2 Cervical Cancer Screening (pap Smear) 08/07/2012 ROEL EXHIBIT ARTIST, GODWIN 617.9 ENDOMETRIOSIS SITE UNSPECIFIED 08/07/2012 ROEL EXHIBIT ARTIST, GODWIN 625.9 Pelvic Pain 08/07/2012 ROEL EXHIBIT ARTIST, GODWIN V05.3 Hep B (adult) Dx 08/07/2012 ROEL EXHIBIT ARTIST, GODWIN V76.2 Cervical Cancer Screening (pap Smear) [...] UNSPECIFIED NONINFECTIOUS GASTROENTERITIS AND COLITIS 09/28/2012 ROEL EXHIBIT ARTIST, GODWIN 558.9 OTHER AND UNSPECIFIED NONINFECTIOUS GASTROENTERITIS AND COLITIS 09/28/2012 ROSITA GONZALEZ APRNA L 558.9 OTHER AND UNSPECIFIED NONINFECTIOUS GASTROENTERITIS AND COLITIS 09/28/2012 ROEL EXHIBIT ARTIST, GODWIN 558.9 OTHER AND UNSPECIFIED NONINFECTIOUS GASTROENTERITIS AND COLITIS 09/28/2012 ROSITA GONZALEZ APRNA L 558.9 OTHER AND UNSPECIFIED NONINFECTIOUS GASTROENTERITIS AND COLITIS 09/28/2012 ROEL EXHIBIT ARTIST, GODWIN 558.9 OTHER AND UNSPECIFIED NONINFECTIOUS GASTROENTERITIS AND COLITIS 09/28/2012 ROEL EXHIBIT ARTIST, GODWIN 558.9 OTHER AND UNSPECIFIED NONINFECTIOUS GASTROENTERITIS AND COLITIS 09/28/2012 LISA MENG FLO L 558.9 OTHER AND UNSPECIFIED NONINFECTIOUS GASTROENTERITIS AND COLITIS 09/28/2012 BRYANL TAQUERIA FLO L 558.9 OTHER AND UNSPECIFIED NONINFECTIOUS GASTROENTERITIS AND COLITIS 09/28/2012 ROEL EXHIBIT ARTIST, GODWIN 558.9 OTHER AND UNSPECIFIED NONINFECTIOUS GASTROENTERITIS AND COLITIS 09/28/2012 ELIAS DENNIS APRN 558.9 OTHER AND UNSPECIFIED NONINFECTIOUS GASTROENTERITIS AND COLITIS 09/28/2012 [facility], DEMOND R 558.9 OTHER AND UNSPECIFIED NONINFECTIOUS GASTROENTERITIS AND COLITIS 09/28/2012 LISA MENG FLO L 558.9 OTHER AND UNSPECIFIED NONINFECTIOUS GASTROENTERITIS AND COLITIS 09/28/2012 JOSE SILVERIO DDS 558.9 OTHER AND UNSPECIFIED NONINFECTIOUS GASTROENTERITIS AND COLITIS 09/28/2012 [facility], DEMOND R 558.9 OTHER AND UNSPECIFIED NONINFECTIOUS GASTROENTERITIS AND COLITIS 09/28/2012 [facility], DEMOND R 558.9 OTHER AND UNSPECIFIED NONINFECTIOUS GASTROENTERITIS AND COLITIS 09/28/2012 ROELGODWIN VARGAS APRN 558.9 OTHER AND UNSPECIFIED NONINFECTIOUS GASTROENTERITIS AND COLITIS 09/28/2012 NICOLA MANUEL DO 558.9 OTHER AND UNSPECIFIED NONINFECTIOUS GASTROENTERITIS AND COLITIS 09/28/2012 ROELSAM MENG GODWIN 558.9 OTHER AND UNSPECIFIED NONINFECTIOUS GASTROENTERITIS AND COLITIS 09/28/2012 ROEL EXHIBIT ARTIST, GODWIN 558.9 OTHER AND UNSPECIFIED NONINFECTIOUS GASTROENTERITIS [...] WOLF JAMA MD 626.0 AMENORRHEA 11/29/2012 ROEL EXHIBIT ARTIST, GODWIN 626.0 AMENORRHEA 11/29/2012 MADL EXHIBIT ARTIST, FLO L 626.0 AMENORRHEA 11/29/2012 ROEL EXHIBIT ARTIST, GODWIN 626.0 AMENORRHEA 11/29/2012 MADL EXHIBIT ARTIST, FLO L 626.0 AMENORRHEA 11/29/2012 ROEL EXHIBIT ARTIST, GODWIN 626.0 AMENORRHEA 11/29/2012 ROEL EXHIBIT ARTIST, GODWIN 626.0 AMENORRHEA 11/29/2012 MADL EXHIBIT ARTIST, FLO L 626.0 AMENORRHEA 11/29/2012 MADL EXHIBIT ARTIST, FLO L 626.0 AMENORRHEA 11/29/2012 ROEL EXHIBIT ARTIST, GODWIN 626.0 AMENORRHEA 11/29/2012 SONNY MENG ELIAS A 626.0 AMENORRHEA 11/29/2012 [facility], DEMOND R 626.0 AMENORRHEA 11/29/2012 MADL EXHIBIT ARTIST, FLO L 626.0 AMENORRHEA 11/29/2012 JOSE SILVERIO DDS 626.0 AMENORRHEA 11/29/2012 [facility], DEMOND R 626.0 AMENORRHEA 11/29/2012 [facility], DEMOND R 626.0 AMENORRHEA 11/29/2012 ROEL EXHIBIT ARTIST, GODWIN 626.0 AMENORRHEA 11/29/2012 NICOLA MANUEL DO 626.0 AMENORRHEA 11/29/2012 ROEL EXHIBIT ARTIST, GODWIN 626.0 AMENORRHEA 11/29/2012 ROEL EXHIBIT ARTIST, GODWIN 626.0 AMENORRHEA 12/08/2012 Ot 723.1 CERVICALGIA [...] F V73.81 HPV SCREENING 01/16/2013 XIOMARA BLANTON AJSON F V74.5 STD SCREEN 01/16/2013 XIOMARA BLANTON [...] 01/16/2013 JASON HUNTER APRN 626.1 OLIGOMENORRHEA 01/16/2013 AJSON HUNTER APRN V73.81 HPV SCREENING 01/16/2013 JASON [...] ROEL MENG GODWIN 626.1 OLIGOMENORRHEA 01/16/2013 ROEL EXHIBIT ARTIST, GODWIN V73.81 HPV SCREENING 01/16/2013 ROEL EXHIBIT ARTIST, GODWIN V74.5 STD SCREEN 01/16/2013 ROEL EXHIBIT ARTIST, GODWIN V76.2 CERVICAL CANCER SCREENING (PAP SMEAR) 01/16/2013 MADL EXHIBIT ARTIST, FLO L 305.1 TOBACCO ABUSE 01/16/2013 MADL EXHIBIT ARTIST, FLO L 626.1 OLIGOMENORRHEA 01/16/2013 MADL EXHIBIT ARTIST, FLO L V73.81 HPV SCREENING 01/16/2013 MADL EXHIBIT ARTIST, FLO L V74.5 STD SCREEN 01/16/2013 MADL EXHIBIT ARTIST, FLO L V76.2 CERVICAL CANCER SCREENING (PAP SMEAR) 01/16/2013 ROEL EXHIBIT ARTIST, GODWIN 305.1 TOBACCO ABUSE 01/16/2013 ROEL EXHIBIT ARTIST, GODWIN 626.1 OLIGOMENORRHEA 01/16/2013 ROEL EXHIBIT ARTIST, GODWIN V73.81 HPV SCREENING 01/16/2013 ROEL EXHIBIT ARTIST, GODWIN V74.5 STD SCREEN 01/16/2013 ROEL EXHIBIT ARTIST GODWIN V76.2 CERVICAL CANCER SCREENING (PAP SMEAR) 01/16/2013 ROEL EXHIBIT ARTIST, GODWIN 305.1 TOBACCO ABUSE 01/16/2013 ROEL EXHIBIT ARTIST, GODWIN 626.1 OLIGOMENORRHEA 01/16/2013 ROEL EXHIBIT ARTIST, GODWIN V73.81 HPV SCREENING 01/16/2013 ROEL EXHIBIT ARTIST, GODWIN V74.5 STD SCREEN 01/16/2013 ROEL EXHIBIT ARTIST, GODWIN V76.2 CERVICAL CANCER SCREENING (PAP SMEAR) 01/16/2013 MAD EXHIBIT ARTIST, FLO L 305.1 TOBACCO ABUSE 01/16/2013 MADL EXHIBIT ARTIST, FLO L 626.1 OLIGOMENORRHEA 01/16/2013 MADL EXHIBIT ARTIST, FLO L V73.81 HPV SCREENING 01/16/2013 MADL EXHIBIT ARTIST, FLO L V74.5 STD SCREEN 01/16/2013 MADL EXHIBIT ARTIST, FLO L V76.2 CERVICAL CANCER SCREENING (PAP SMEAR) 01/16/2013 MADL EXHIBIT ARTIST, FLO L 305.1 TOBACCO ABUSE 01/16/2013 MADL EXHIBIT ARTIST, FLO L 626.1 OLIGOMENORRHEA 01/16/2013 MADL EXHIBIT ARTIST, FLO L V73.81 HPV SCREENING 01/16/2013 MADL EXHIBIT ARTIST, FLO L V74.5 STD SCREEN 01/16/2013 MADL EXHIBIT ARTIST, FLO L V76.2 CERVICAL CANCER SCREENING (PAP SMEAR) 01/16/2013 ROEL EXHIBIT ARTIST, GODWIN 305.1 TOBACCO ABUSE 01/16/2013 ROEL EXHIBIT ARTIST, GODWIN 626.1 OLIGOMENORRHEA 01/16/2013 ROEL EXHIBIT ARTIST, GODWIN V73.81 HPV SCREENING 01/16/2013 ROEL EXHIBIT ARTIST, GODWIN V74.5 STD SCREEN 01/16/2013 ROEL EXHIBIT ARTIST, GODWIN V76.2 CERVICAL CANCER SCREENING (PAP SMEAR) 01/16/2013 SONNY APRN, ELIAS A 305.1 TOBACCO ABUSE 01/16/2013 SONNY EXHIBIT ARTIST, ELIAS A 626.1 OLIGOMENORRHEA 01/16/2013 SONNY EXHIBIT ARTIST, ELIAS A V73.81 HPV SCREENING 01/16/2013 SONNY EXHIBIT ARTIST, ELIAS A V74.5 STD SCREEN 01/16/2013 SONNY EXHIBIT ARTIST, ELIAS A V76.2 CERVICAL CANCER SCREENING (PAP SMEAR) 01/16/2013 [facility], DEMOND R 305.1 TOBACCO ABUSE 01/16/2013 [facility], DEMOND R 626.1 OLIGOMENORRHEA 01/16/2013 [facility], DEMOND R V73.81 HPV SCREENING 01/16/2013 [facility], DEMOND R V74.5 STD SCREEN 01/16/2013 [facility], DEMOND R V76.2 CERVICAL CANCER SCREENING (PAP SMEAR) 01/16/2013 BRYAN EXHIBIT ARTIST, FLO L 305.1 TOBACCO ABUSE 01/16/2013 MADL EXHIBIT ARTIST, FLO L 626.1 OLIGOMENORRHEA 01/16/2013 MADL EXHIBIT ARTIST, FLO L V73.81 HPV SCREENING 01/16/2013 MADL EXHIBIT ARTIST, FLO L V74.5 STD SCREEN 01/16/2013 MADL EXHIBIT ARTIST, FLO L V76.2 CERVICAL CANCER SCREENING (PAP SMEAR) 01/16/2013 JOSE SILVERIO DDS 305.1 TOBACCO ABUSE 01/16/2013 JOSE SILVERIO DDS 626.1 OLIGOMENORRHEA 01/16/2013 SILVERIO DDS, JOSE V73.81 HPV SCREENING 01/16/2013 SILVERIO DDS, JOSE V74.5 STD SCREEN 01/16/2013 SILVERIO DDS, JOSE V76.2 CERVICAL CANCER SCREENING (PAP SMEAR) 01/16/2013 [facility], DEMOND R 305.1 TOBACCO ABUSE 01/16/2013 [facility], DEMOND R 626.1 OLIGOMENORRHEA 01/16/2013 [facility], DEMOND R V73.81 HPV SCREENING 01/16/2013 [facility], DEMOND R V74.5 STD SCREEN 01/16/2013 [facility], DEMOND R V76.2 CERVICAL CANCER SCREENING (PAP SMEAR) 01/16/2013 [facility], DEMOND R 305.1 TOBACCO ABUSE 01/16/2013 [facility], DEMOND R 626.1 OLIGOMENORRHEA 01/16/2013 [facility], DEMOND R V73.81 HPV SCREENING 01/16/2013 [facility], DEMOND R V74.5 STD SCREEN 01/16/2013 [facility], DEMNOD R V76.2 CERVICAL CANCER SCREENING (PAP SMEAR) 01/16/2013 ROEL EXHIBIT ARTIST, GODWIN 305.1 TOBACCO ABUSE 01/16/2013 ROEL EXHIBIT ARTIST, GODWIN 626.1 OLIGOMENORRHEA 01/16/2013 ROEL EXHIBIT ARTIST, GODWIN V73.81 HPV SCREENING 01/16/2013 ROEL EXHIBIT ARTIST, GODWIN V74.5 STD SCREEN 01/16/2013 ROEL EXHIBIT ARTIST, GODWIN V76.2 CERVICAL CANCER SCREENING (PAP SMEAR) 01/16/2013 NICOLA MANUEL DO K 305.1 TOBACCO ABUSE 01/16/2013 MAR BLANTNO NICOLA K 626.1 OLIGOMENORRHEA 01/16/2013 MANUEL DO NICOLA K V73.81 HPV SCREENING 01/16/2013 MAR BLANTON NICOLA K V74.5 STD SCREEN 01/16/2013 MANUEL DO NICOLA K V76.2 CERVICAL CANCER SCREENING (PAP SMEAR) 01/16/2013 ROEL EXHIBIT ARTIST, GODWIN 305.1 TOBACCO ABUSE 01/16/2013 ROEL EXHIBIT ARTIST, GODWIN 626.1 OLIGOMENORRHEA 01/16/2013 ROEL EXHIBIT ARTIST, GODWIN V73.81 HPV SCREENING 01/16/2013 ROEL EXHIBIT ARTIST, GODWIN V74.5 STD SCREEN 01/16/2013 ROEL EXHIBIT ARTIST, GODWIN V76.2 CERVICAL CANCER SCREENING (PAP SMEAR) 01/16/2013 ROEL EXHIBIT ARTIST, GODWIN 305.1 TOBACCO ABUSE 01/16/2013 ROEL EXHIBIT ARTIST, GODWIN 626.1 OLIGOMENORRHEA 01/16/2013 ROEL EXHIBIT ARTIST, GODWIN V73.81 HPV SCREENING 01/16/2013 ROEL EXHIBIT ARTIST, GODWIN V74.5 STD SCREEN 01/16/2013 ROEL EXHIBIT ARTIST, GODWIN V76.2 CERVICAL CANCER SCREENING (PAP SMEAR) [...] APRN 296.90 MOOD DISORDER NOS 01/24/2013 ROEL EXHIBIT ARTIST, GODWIN 296.90 MOOD DISORDER NOS 01/24/2013 MADL EXHIBIT ARTIST, FLO L 296.90 MOOD DISORDER NOS 01/24/2013 ROEL EXHIBIT ARTIST, GODWIN 296.90 MOOD DISORDER NOS 01/24/2013 ROEL EXHIBIT ARTIST, GODWIN 296.90 MOOD DISORDER NOS 01/24/2013 MADL EXHIBIT ARTIST, FLO L 296.90 MOOD DISORDER NOS 01/24/2013 MADL EXHIBIT ARTIST, FLO L 296.90 MOOD DISORDER NOS 01/24/2013 ROEL EXHIBIT ARTIST, GODWIN 296.90 MOOD DISORDER NOS 01/24/2013 SONYN EXHIBIT ARTIST, ELIAS A 296.90 MOOD DISORDER NOS 01/24/2013 [facility], DEMOND R 296.90 MOOD DISORDER NOS 01/24/2013 MADL EXHIBIT ARTIST, FLO L 296.90 MOOD DISORDER NOS 01/24/2013 NUSRAT S, JOSE 296.90 MOOD DISORDER NOS 01/24/2013 [facility], DEMOND R 296.90 MOOD DISORDER NOS 01/24/2013 [facility], DEMOND R 296.90 MOOD DISORDER NOS 01/24/2013 ROEL EXHIBIT ARTIST, GODWIN 296.90 MOOD DISORDER NOS 01/24/2013 NICOLA MANUEL DO 296.90 MOOD DISORDER NOS 01/24/2013 ROEL EXHIBIT ARTIST, GODWIN 296.90 MOOD DISORDER NOS 01/24/2013 ROEL EXHIBIT ARTIST, GODWIN 296.90 MOOD DISORDER NOS 02/13/2013 787.02 [...] JAMA MD 787.02 NAUSEA ALONE 02/13/2013 ROEL EXHIBIT ARTIST, GODWIN 787.02 NAUSEA ALONE 02/13/2013 MADL EXHIBIT ARTIST, FLO L 787.02 NAUSEA ALONE 02/13/2013 ROEL EXHIBIT ARTIST, GODWIN 787.02 NAUSEA ALONE 02/13/2013 MADL EXHIBIT ARTIST, FLO L 787.02 NAUSEA ALONE 02/13/2013 ROEL EXHIBIT ARTIST, GODWIN 787.02 NAUSEA ALONE 02/13/2013 ROEL EXHIBIT ARTIST, GODWIN 787.02 NAUSEA ALONE 02/13/2013 MADL EXHIBIT ARTIST, FLO L 787.02 NAUSEA ALONE 02/13/2013 MADL EXHIBIT ARTIST, FLO L 787.02 NAUSEA ALONE 02/13/2013 ROEL EXHIBIT ARTIST, GODWIN 787.02 NAUSEA ALONE 02/13/2013 ELIAS DENNIS APRN 787.02 NAUSEA ALONE 02/13/2013 [facility], DEMOND R 787.02 NAUSEA ALONE 02/13/2013 MADL EXHIBIT ARTIST, FLO L 787.02 NAUSEA ALONE 02/13/2013 JOSE SILVERIO DDS 787.02 NAUSEA ALONE 02/13/2013 [facility], DEMOND R 787.02 NAUSEA ALONE 02/13/2013 [facility], DEMOND R 787.02 NAUSEA ALONE 02/13/2013 ROEL EXHIBIT ARTIST, GODWIN 787.02 NAUSEA ALONE 02/13/2013 NICOLA MANUEL DO 787.02 NAUSEA ALONE 02/13/2013 ROEL EXHIBIT ARTIST, GODWIN 787.02 NAUSEA ALONE 02/13/2013 ROEL EXHIBIT ARTIST, GODWIN 787.02 NAUSEA ALONE 03/23/2013 309.81 AN [...] JAMA MD 309.81 AN PTSD 03/23/2013 ROEL EXHIBIT ARTIST, GODWIN 309.81 AN PTSD 03/23/2013 MADL EXHIBIT ARTIST, FLO L 309.81 AN PTSD 03/23/2013 ROEL EXHIBIT ARTIST, GODWIN 309.81 AN PTSD 03/23/2013 MADL EXHIBIT ARTIST, FLO L 309.81 AN PTSD 03/23/2013 ROEL EXHIBIT ARTIST, GODWIN 309.81 AN PTSD 03/23/2013 ROEL EXHIBIT ARTIST, GODWIN 309.81 AN PTSD 03/23/2013 MADL EXHIBIT ARTIST, FLO L 309.81 AN PTSD 03/23/2013 MADL EXHIBIT ARTIST, FLO L 309.81 AN PTSD 03/23/2013 ROEL EXHIBIT ARTIST, GODWIN 309.81 AN PTSD 03/23/2013 SONNY EXHIBIT ARTIST, ELIAS A 309.81 AN PTSD 03/23/2013 [facility], DEMOND R 309.81 AN PTSD 03/23/2013 MADL EXHIBIT ARTIST, FLO L 309.81 AN PTSD 03/23/2013 JOSE SILVERIO DDS 309.81 AN PTSD 03/23/2013 [facility], DEMOND R 309.81 AN PTSD 03/23/2013 [facility], DEMOND R 309.81 AN PTSD 03/23/2013 ROEL EXHIBIT ARTIST, GODWIN 309.81 AN PTSD 03/23/2013 NICOLA MANUEL [...] 724.2 LUMBAGO/ LOW BACK PAIN 04/26/2013 ROEL EXHIBIT ARTIST, GODWIN 724.2 LUMBAGO/ LOW BACK PAIN 04/26/2013 MADL EXHIBIT ARTIST, FLO L 724.2 LUMBAGO/ LOW BACK PAIN 04/26/2013 MADL EXHIBIT ARTIST, FLO L 724.2 LUMBAGO/ LOW BACK PAIN 04/26/2013 ROEL EXHIBIT ARTIST, GODWIN 724.2 LUMBAGO/ LOW BACK PAIN 04/26/2013 SONNY EXHIBIT ARTIST, ELIAS A 724.2 LUMBAGO/ L[facility]/26/2013 [facility] 724.2 LUMBAGO/ LOW BACK PAIN 04/26/2013 MADL EXHIBIT ARTIST, FLO L 724.2 LUMBAGO/ LOW BACK PAIN 04/26/2013 JOSE SILVERIO DDS 724.2 LUMBAGO/ LOW BACK PAIN 04/26/2013 [facility] 724.2 LUMBAGO/ LOW BACK PAIN 04/26/2013 [facility] 724.2 LUMBAGO/ LOW BACK PAIN 04/26/2013 ROEL EXHIBIT ARTIST, GODWIN 724.2 LUMBAGO/ LOW BACK PAIN 04/26/2013 MANUEL DO, NICOLA K 724.2 LUMBAGO/ LOW BACK PAIN 04/26/2013 ROEL EXHIBIT ARTIST, GODWNI 724.2 LUMBAGO/ LOW BACK PAIN 04/26/2013 ROEL EXHIBIT ARTIST, GODWIN 724.2 LUMBAGO/ LOW BACK PAIN 04/29/2013 [...] MENG GODWIN 799.81 DECREASED LIBIDO 04/29/2013 ROEL EXHIBIT ARTIST, GODWIN V26.9 PROCREATIVE MANAGEMENT 04/29/2013 NARAYAN GONZALEZ APRNWNYA L 799.81 DECREASED LIBIDO 04/29/2013 LISA MENG FLO L V26.9 PROCREATIVE MANAGEMENT 04/29/2013 ROEL MENG GODWIN 799.81 DECREASED LIBIDO 04/29/2013 ROEL MENG GODWIN V26.9 PROCREATIVE MANAGEMENT 04/29/2013 ROEL EXHIBIT ARTIST, GODWIN 799.81 DECREASED LIBIDO 04/29/2013 ROEL EXHIBIT ARTIST, GODWIN V26.9 PROCREATIVE MANAGEMENT 04/29/2013 MADL EXHIBIT ARTIST, FLO L 799.81 DECREASED LIBIDO 04/29/2013 MADL EXHIBIT ARTIST, FLO L V26.9 PROCREATIVE MANAGEMENT 04/29/2013 MADL EXHIBIT ARTIST, FLO L 799.81 DECREASED LIBIDO 04/29/2013 MADL EXHIBIT ARTIST, FLO L V26.9 PROCREATIVE MANAGEMENT 04/29/2013 ROEL EXHIBIT ARTIST, GODWIN 799.81 DECREASED LIBIDO 04/29/2013 ROEL EXHIBIT ARTIST, GODWIN V26.9 PROCREATIVE MANAGEMENT 04/29/2013 SONNY EXHIBIT ARTIST, ELIAS A 799.81 DECREASED LIBIDO 04/29/2013 SONNY EXHIBIT ARTIST, ELIAS A V26.9 PROCREATIVE MANAGEMENT 04/29/2013 [facility], DEMOND R 799.81 DECREASED LIBIDO 04/29/2013 [facility], DEMOND R V26.9 PROCREATIVE MANAGEMENT 04/29/2013 MADL EXHIBIT ARTIST, FLO L 799.81 DECREASED LIBIDO 04/29/2013 MADL EXHIBIT ARTIST, FLO L V26.9 PROCREATIVE MANAGEMENT 04/29/2013 SILVERIO DDS, JOSE 799.81 DECREASED LIBIDO 04/29/2013 SILVERIO DDS, JOSE V26.9 PROCREATIVE MANAGEMENT 04/29/2013 [facility], DEMOND R 799.81 DECREASED LIBIDO 04/29/2013 [facility], DEMOND R V26.9 PROCREATIVE MANAGEMENT 04/29/2013 [facility], DEMOND R 799.81 DECREASED LIBIDO 04/29/2013 [facility], DEMOND R V26.9 PROCREATIVE MANAGEMENT 04/29/2013 ROEL EXHIBIT ARTIST, GODWIN 799.81 DECREASED LIBIDO 04/29/2013 ROEL EXHIBIT ARTIST, GODWIN V26.9 PROCREATIVE MANAGEMENT 04/29/2013 MANUEL DO, NICOLA K 799.81 DECREASED LIBIDO 04/29/2013 MANUEL DO, NICOLA K V26.9 PROCREATIVE MANAGEMENT 04/29/2013 ROEL EXHIBIT ARTIST, GODWIN 799.81 DECREASED LIBIDO 04/29/2013 ROEL EXHIBIT ARTIST, GODWIN V26.9 PROCREATIVE MANAGEMENT 04/29/2013 ROEL EXHIBIT ARTIST, GODWIN 799.81 DECREASED LIBIDO 04/29/2013 ROEL EXHIBIT ARTIST, GODWIN V26.9 PROCREATIVE MANAGEMENT 04/30/2013 MEJIA JONES, [...] JAMA MD 338.29 CHRONIC PAIN 05/17/2013 ROEL EXHIBIT ARTIST, GODWIN 338.29 CHRONIC PAIN 05/17/2013 MADL EXHIBIT ARTIST, FLO L 338.29 CHRONIC PAIN 05/17/2013 ROEL EXHIBIT ARTIST, GODWIN 338.29 CHRONIC PAIN 05/17/2013 MADL EXHIBIT ARTIST, FLO L 338.29 CHRONIC PAIN 05/17/2013 ROEL EXHIBIT ARTIST, GODWIN 338.29 CHRONIC PAIN 05/17/2013 ROEL EXHIBIT ARTIST, GODWIN 338.29 CHRONIC PAIN 05/17/2013 MADL EXHIBIT ARTIST, FLO L 338.29 CHRONIC PAIN 05/17/2013 MADL EXHIBIT ARTIST, FLO L 338.29 CHRONIC PAIN 05/17/2013 ROEL EXHIBIT ARTIST, GODWIN 338.29 CHRONIC PAIN 05/17/2013 SONNY MENG ELIAS A 338.29 CHRONIC PAIN 05/17/2013 [facility], DEMOND R 338.29 CHRONIC PAIN 05/17/2013 MADL EXHIBIT ARTIST, FLO L 338.29 CHRONIC PAIN 05/17/2013 NUSRAT JENKINSS, JOSE 338.29 CHRONIC PAIN 05/17/2013 [facility], DEMOND R 338.29 CHRONIC PAIN 05/17/2013 [facility], DEMOND R 338.29 CHRONIC PAIN 05/17/2013 ROEL EXHIBIT ARTIST, GODWIN 338.29 CHRONIC PAIN 05/17/2013 MANUEL DO, NICOLA K 338.29 CHRONIC PAIN 05/17/2013 ROEL EXHIBIT ARTIST, GODWIN 338.29 CHRONIC PAIN 05/17/2013 ROEL EXHIBIT ARTIST, GODWIN 338.29 CHRONIC PAIN 06/22/2013 V70.5 HEALTH [...] HEALTH EXAMINATION OF DEFINED SUBPOPULATIONS 06/22/2013 ROEL EXHIBIT ARTIST, GODWIN V70.5 HEALTH EXAMINATION OF DEFINED SUBPOPULATIONS 06/22/2013 MADL EXHIBIT ARTIST, FLO L V70.5 HEALTH EXAMINATION OF DEFINED SUBPOPULATIONS 06/22/2013 ROEL EXHIBIT ARTIST, GODWIN V70.5 HEALTH EXAMINATION OF DEFINED SUBPOPULATIONS 06/22/2013 MADL EXHIBIT ARTIST, FLO L V70.5 HEALTH EXAMINATION OF DEFINED SUBPOPULATIONS 06/22/2013 ROEL EXHIBIT ARTIST, GODWIN V70.5 HEALTH EXAMINATION OF DEFINED SUBPOPULATIONS 06/22/2013 ROEL EXHIBIT ARTIST, GODWIN V70.5 HEALTH EXAMINATION OF DEFINED SUBPOPULATIONS 06/22/2013 MADL EXHIBIT ARTIST, FLO L V70.5 HEALTH EXAMINATION OF DEFINED SUBPOPULATIONS 06/22/2013 MADL EXHIBIT ARTIST, FLO L V70.5 HEALTH EXAMINATION OF DEFINED SUBPOPULATIONS 06/22/2013 ROEL EXHIBIT ARTIST, GODWIN V70.5 HEALTH EXAMINATION OF DEFINED SUBPOPULATIONS 06/22/2013 ELIAS DENNIS APRN V70.5 HEALTH EXAMINATION OF DEFINED SUBPOPULATIONS 06/22/2013 [facility], DEMOND R V70.5 HEALTH EXAMINATION OF DEFINED SUBPOPULATIONS 06/22/2013 MADL EXHIBIT ARTIST, FLO L V70.5 HEALTH EXAMINATION OF DEFINED SUBPOPULATIONS 06/22/2013 JOSE SILVERIO DDS V70.5 HEALTH EXAMINATION OF DEFINED SUBPOPULATIONS 06/22/2013 [facility], DEMOND R V70.5 HEALTH EXAMINATION OF DEFINED SUBPOPULATIONS 06/22/2013 [facility], DEMOND R V70.5 HEALTH EXAMINATION OF DEFINED SUBPOPULATIONS 06/22/2013 ROEL EXHIBIT ARTIST, GODWIN V70.5 HEALTH EXAMINATION OF DEFINED SUBPOPULATIONS 06/22/2013 NICOLA MANUEL DO V70.5 HEALTH EXAMINATION OF DEFINED SUBPOPULATIONS 06/22/2013 ROEL EXHIBIT ARTIST, GODWIN V70.5 HEALTH EXAMINATION OF DEFINED SUBPOPULATIONS 06/22/2013 ROEL EXHIBIT ARTIST, GODWIN V70.5 HEALTH EXAMINATION OF DEFINED SUBPOPULATIONS [...] 296.30 MO DEPRESSIVE RECURRENT UNSPECIFIED 07/04/2013 MADL EXHIBIT ARTIST, FLO L 296.30 MO DEPRESSIVE RECURRENT UNSPECIFIED 07/04/2013 ROEL EXHIBIT ARTIST, GODWIN 296.30 MO DEPRESSIVE RECURRENT UNSPECIFIED 07/04/2013 ROEL EXHIBIT ARTIST, GODWIN 296.30 MO DEPRESSIVE RECURRENT UNSPECIFIED 07/04/2013 MADL EXHIBIT ARTIST, FLO L 296.30 MO DEPRESSIVE RECURRENT UNSPECIFIED 07/04/2013 MADL EXHIBIT ARTIST, FLO L 296.30 MO DEPRESSIVE RECURRENT UNSPECIFIED 07/04/2013 ROEL EXHIBIT ARTIST, GODWIN 296.30 MO DEPRESSIVE RECURRENT UNSPECIFIED 07/04/2013 SONYN EXHIBIT ARTIST, ELIAS A 296.30 MO DEPRESSIVE RECURRENT UNSPECIFIED 07/04/2013 [facility], DEMOND R 296.30 MO DEPRESSIVE RECURRENT UNSPECIFIED 07/04/2013 MADL EXHIBIT ARTIST, FLO L 296.30 MO DEPRESSIVE RECURRENT UNSPECIFIED 07/04/2013 JOSE SILVERIO DDS 296.30 MO DEPRESSIVE RECURRENT UNSPECIFIED 07/04/2013 [facility], DEMOND R 296.30 MO DEPRESSIVE RECURRENT UNSPECIFIED 07/04/2013 [facility], DEMOND R 296.30 MO DEPRESSIVE RECURRENT UNSPECIFIED 07/04/2013 ROEL EXHIBIT ARTIST, GODWIN 296.30 MO DEPRESSIVE RECURRENT UNSPECIFIED 07/04/2013 NICOLA MANUEL DO 296.30 MO DEPRESSIVE RECURRENT UNSPECIFIED 07/04/2013 ROEL EXHIBIT ARTIST, GODWIN 296.30 MO DEPRESSIVE RECURRENT UNSPECIFIED 07/04/2013 ROEL EXHIBIT ARTIST, GODWIN 296.30 MO DEPRESSIVE RECURRENT UNSPECIFIED 08/14/2013 [...] MD V23.9 , HIGH-RISK (UNSPEC) 08/14/2013 ROEL EXHIBIT ARTIST, GODWIN V23.9 , HIGH-RISK (UNSPEC) 08/14/2013 MADL EXHIBIT ARTIST, FLO L V23.9 , HIGH-RISK (UNSPEC) 08/14/2013 ROEL EXHIBIT ARTIST, GODWIN V23.9 , HIGH-RISK (UNSPEC) 08/14/2013 MADL EXHIBIT ARTIST, FLO L V23.9 , HIGH-RISK (UNSPEC) 08/14/2013 ROEL EXHIBIT ARTIST, GODWIN V23.9 , HIGH-RISK (UNSPEC) 08/14/2013 ROEL EXHIBIT ARTIST, GODWIN V23.9 , HIGH-RISK (UNSPEC) 08/14/2013 MADL EXHIBIT ARTIST, FLO L V23.9 , HIGH-RISK (UNSPEC) 08/14/2013 MADL EXHIBIT ARTIST, FLO L V23.9 , HIGH-RISK (UNSPEC) 08/14/2013 ROEL EXHIBIT ARTIST, GODWIN V23.9 , HIGH-RISK (UNSPEC) 08/14/2013 SONNY EXHIBIT ARTIST, ELIAS A V23.9 , HIGH-RISK (UNSPEC) 08/14/2013 [facility], DEMOND R V23.9 , HIGH-RISK (UNSPEC) 08/14/2013 MADL EXHIBIT ARTIST, FLO L V23.9 , HIGH-RISK (UNSPEC) 08/14/2013 JOSE SILVERIO DDS V23.9 , HIGH-RISK (UNSPEC) 08/14/2013 [facility], DEMOND R V23.9 , HIGH-RISK (UNSPEC) 08/14/2013 [facility], DEMOND R V23.9 , HIGH-RISK (UNSPEC) 08/14/2013 ROEL EXHIBIT ARTIST, GODWIN V23.9 , HIGH-RISK (UNSPEC) 08/14/2013 NICOLA MANUEL DO V23.9 , HIGH-RISK (UNSPEC) 08/14/2013 ROEL EXHIBIT ARTIST, GODWIN V23.9 , HIGH-RISK (UNSPEC) 08/14/2013 ROEL EXHIBIT ARTIST, GODWIN V23.9 , HIGH-RISK (UNSPEC) 09/11/2013 WOLF JAMA MD 788.1 DYSURIA 09/11/2013 MANUEL DO, NICOLA K 788.1 DYSURIA 09/11/2013 IDALIA BAKER, KELY J 788.1 DYSURIA 09/11/2013 JASON HUNTER APRN D 788.1 DYSURIA 09/11/2013 JASON HUNTER APRN D 788.1 DYSURIA 09/11/2013 GARMYRA EXHIBIT ARTISTJASON Kirkpatrick D 788.1 DYSURIA 09/11/2013 WOLF JAMA MD 788.1 DYSURIA 09/11/2013 ROEL EXHIBIT ARTIST, GODWIN 788.1 DYSURIA 09/11/2013 MADL EXHIBIT ARTIST, FLO L 788.1 DYSURIA 09/11/2013 ROEL EXHIBIT ARTIST, GODWIN 788.1 DYSURIA 09/11/2013 MADL EXHIBIT ARTIST, FLO L 788.1 DYSURIA 09/11/2013 ROEL EXHIBIT ARTIST, GODWIN 788.1 DYSURIA 09/11/2013 ROEL EXHIBIT ARTIST, GODWIN 788.1 DYSURIA 09/11/2013 MADL EXHIBIT ARTIST, FLO L 788.1 DYSURIA 09/11/2013 MADL EXHIBIT ARTIST, FLO L 788.1 DYSURIA 09/11/2013 ROEL EXHIBIT ARTIST, GODWIN 788.1 DYSURIA 09/11/2013 SONNY EXHIBIT ARTIST, ELIAS A 788.1 DYSURIA 09/11/2013 [facility], DEMOND R 788.1 DYSURIA 09/11/2013 MADL EXHIBIT ARTIST, FLO L 788.1 DYSURIA 09/11/2013 JOSE SILVERIO DDS 788.1 DYSURIA 09/11/2013 [facility], DEMOND R 788.1 DYSURIA 09/11/2013 [facility], DEMOND R 788.1 DYSURIA 09/11/2013 ROEL EXHIBIT ARTIST, GODWIN 788.1 DYSURIA 09/11/2013 MANUEL DO, NICOLA K 788.1 DYSURIA 09/11/2013 ROEL EXHIBIT ARTIST, GODWIN 788.1 DYSURIA 09/11/2013 ROEL EXHIBIT ARTIST, GODWIN 788.1 DYSURIA 11/13/2013 JENNIFER MAYES MD [...] INFECTION-DELIV 03/26/2014 JENNIFER MAYES MD Ot V06.1 [id number], COMBINED [ 03/26/2014 JENNIFER MAYES MD, Ot V06.5 TETANUS-DIPHTHERIA [TD][DT] 03/26/2014 JENNIFER MAYES MD Ot V27.0 DELIVER-SINGLE LIVEBORN 05/01/2014 MIGDALIA RAMON DO Ot 599.0 URIN TRACT INFECTION NOS 05/01/2014 MIGDALIA RAMON DO Ot 724.5 BACKACHE NOS 05/27/2014 MADL EXHIBIT ARTIST, FLO L 724.2 BACK PAIN, LOWER 05/27/2014 ROEL EXHIBIT ARTIST, GODWIN 724.2 BACK PAIN, LOWER 05/27/2014 MADL EXHIBIT ARTIST, FLO L 724.2 BACK PAIN, LOWER 05/27/2014 ROEL EXHIBIT ARTIST, GODWIN 724.2 BACK PAIN, LOWER 05/27/2014 ROEL EXHIBIT ARTIST, GODWIN 724.2 BACK PAIN, LOWER 05/27/2014 MADL EXHIBIT ARTIST, FLO L 724.2 BACK PAIN, LOWER 05/27/2014 MADL EXHIBIT ARTIST, FLO L 724.2 BACK PAIN, LOWER 05/27/2014 ROEL EXHIBIT ARTIST, GODWIN 724.2 BACK PAIN, LOWER 05/27/2014 SONNY EXHIBIT ARTIST, ELIAS A 724.2 BACK PAIN, LOWER 05/27/2014 ANGELA CS, DEMOND R 724.2 BACK PAIN, LOWER 05/27/2014 MADL EXHIBIT ARTIST, FLO L 724.2 BACK PAIN, LOWER 05/27/2014 NUSRAT DDS, JOSE 724.2 BACK PAIN, LOWER 05/27/2014 ANGELA LSCS, DEMOND R 724.2 BACK PAIN, LOWER 05/27/2014 ANGELA LSCS, DEMOND R 724.2 BACK PAIN, LOWER 05/27/2014 ROEL EXHIBIT ARTIST, GODWIN 724.2 BACK PAIN, LOWER 05/27/2014 NICOLA MANUEL DO 724.2 BACK PAIN, LOWER 05/27/2014 ROEL EXHIBIT ARTIST, GODWIN 724.2 BACK PAIN, LOWER 05/27/2014 ROEL EXHIBIT ARTIST, GODWIN 724.2 BACK PAIN, LOWER 06/05/2014 IVONNE JONES, REZA Steel Ot 490 BRONCHITIS NOS 06/05/2014 REZA CORONADO MD Ot 786.2 COUGH 06/10/2014 ROEL EXHIBIT ARTIST, GODWIN 296.35 MO DEPRESSIVE RECURRENT IN PART OR UNSPECIFIED REMISSION 06/10/2014 ROEL EXHIBIT ARTIST, GODWIN 300.02 AN GEN ANXIETY 06/10/2014 MADL EXHIBIT ARTIST, FLO L 296.35 MO DEPRESSIVE RECURRENT IN PART OR UNSPECIFIED REMISSION 06/10/2014 MADL EXHIBIT ARTIST, FLO L 300.02 AN GEN ANXIETY 06/10/2014 ROEL EXHIBIT ARTIST, GODWIN 296.35 MO DEPRESSIVE RECURRENT IN PART OR UNSPECIFIED REMISSION 06/10/2014 ROEL EXHIBIT ARTIST, GODWIN 300.02 AN GEN ANXIETY 06/10/2014 ROEL EXHIBIT ARTIST, GODWIN 296.35 MO DEPRESSIVE RECURRENT IN PART OR UNSPECIFIED REMISSION 06/10/2014 ROEL EXHIBIT ARTIST, GODWIN 300.02 AN GEN ANXIETY 06/10/2014 MADL EXHIBIT ARTIST, FLO L 296.35 MO DEPRESSIVE RECURRENT IN PART OR UNSPECIFIED REMISSION 06/10/2014 MADL EXHIBIT ARTIST, FLO L 300.02 AN GEN ANXIETY 06/10/2014 MADL EXHIBIT ARTIST, FLO L 296.35 MO DEPRESSIVE RECURRENT IN PART OR UNSPECIFIED REMISSION 06/10/2014 MADL EXHIBIT ARTIST, FLO L 300.02 AN GEN ANXIETY 06/10/2014 ROEL EXHIBIT ARTIST, GODWIN 296.35 MO DEPRESSIVE RECURRENT IN PART OR UNSPECIFIED REMISSION 06/10/2014 ROEL MENG GODWIN 300.02 AN GEN ANXIETY 06/10/2014 SONNYKENJI MENG, ELIAS A 296.35 MO DEPRESSIVE RECURRENT IN PART OR UNSPECIFIED REMISSION 06/10/2014 SONNY APRN, ELIAS A 300.02 AN GEN ANXIETY 06/10/2014 [facility], DEMOND R 296.35 MO DEPRESSIVE RECURRENT IN PART OR UNSPECIFIED REMISSION 06/10/2014 [facility], DEMOND R 300.02 AN GEN ANXIETY 06/10/2014 MADTima EXHIBIT ARTIST, FLO L 296.35 MO DEPRESSIVE RECURRENT IN PART OR UNSPECIFIED REMISSION 06/10/2014 MADL EXHIBIT ARTIST, FLO L 300.02 AN GEN ANXIETY 06/10/2014 SILVERIO DDS, JOSE 296.35 MO DEPRESSIVE RECURRENT IN PART OR UNSPECIFIED REMISSION 06/10/2014 SILVERIO DDS, JOSE 300.02 AN GEN ANXIETY 06/10/2014 [facility], DEMOND R 296.35 MO DEPRESSIVE RECURRENT IN PART OR UNSPECIFIED REMISSION 06/10/2014 [facility], DEMOND R 300.02 AN GEN ANXIETY 06/10/2014 [facility], DEMOND R 296.35 MO DEPRESSIVE RECURRENT IN PART OR UNSPECIFIED REMISSION 06/10/2014 [facility], DEMOND R 300.02 AN GEN ANXIETY 06/10/2014 ROEL EXHIBIT ARTIST, GODWIN 296.35 MO DEPRESSIVE RECURRENT IN PART OR UNSPECIFIED REMISSION 06/10/2014 ROEL EXHIBIT ARTIST, GODWIN 300.02 AN GEN ANXIETY 06/10/2014 MANUEL DONICOLA K 296.35 MO DEPRESSIVE RECURRENT IN PART OR UNSPECIFIED REMISSION 06/10/2014 MANEUL DONICOLA K 300.02 AN GEN ANXIETY 06/10/2014 ROEL EXHIBIT ARTIST, GODWIN 296.35 MO DEPRESSIVE RECURRENT IN PART OR UNSPECIFIED REMISSION 06/10/2014 ROEL EXHIBIT ARTIST, GODWIN 300.02 AN GEN ANXIETY 06/10/2014 ROEL EXHIBIT ARTIST, GODWIN 296.35 MO DEPRESSIVE RECURRENT IN PART OR UNSPECIFIED REMISSION 06/10/2014 ROEL EXHIBIT ARTIST, GODWIN 300.02 AN GEN ANXIETY 07/04/2014 MADL EXHIBIT ARTIST, FLO L 782.7 SPONTANEOUS ECCHYMOSES 07/04/2014 ROEL EXHIBIT ARTIST, GODWIN 782.7 SPONTANEOUS ECCHYMOSES 07/04/2014 ROEL EXHIBIT ARTIST, GODWIN 782.7 SPONTANEOUS ECCHYMOSES 07/04/2014 MADL EXHIBIT ARTIST, FLO L 782.7 SPONTANEOUS ECCHYMOSES 07/04/2014 MADL EXHIBIT ARTIST, FLO L 782.7 SPONTANEOUS ECCHYMOSES 07/04/2014 ROEL EXHIBIT ARTIST GODWIN 782.7 SPONTANEOUS ECCHYMOSES 07/04/2014 SONNY EXHIBIT ARTIST, ELIAS A 782.7 SPONTANEOUS ECCHYMOSES 07/04/2014 [facility], DEMOND R 782.7 SPONTANEOUS ECCHYMOSES 07/04/2014 MADL EXHIBIT ARTIST, FLO L 782.7 SPONTANEOUS ECCHYMOSES 07/04/2014 JOSE SILVERIO DDS 782.7 SPONTANEOUS ECCHYMOSES 07/04/2014 [facility], DEMOND R 782.7 SPONTANEOUS ECCHYMOSES 07/04/2014 [facility], DEMOND R 782.7 SPONTANEOUS ECCHYMOSES 07/04/2014 ROEL EXHIBIT ARTIST, GODWIN 782.7 SPONTANEOUS ECCHYMOSES 07/04/2014 NICOLA MANUEL DO K 782.7 SPONTANEOUS ECCHYMOSES 07/04/2014 ROEL EXHIBIT ARTIST, GODWIN 782.7 SPONTANEOUS ECCHYMOSES 07/04/2014 ROEL EXHIBIT ARTIST, GODWIN 782.7 SPONTANEOUS ECCHYMOSES 08/04/2014 ISMAEL SOL APRN Ot 724.5 BACKACHE NOS 08/04/2014 ISMAEL SOL APRN Ot E000.8 OTHER EXTERNAL CAUSE STATUS 08/04/2014 ISMAEL SOL APRN Ot E849.6 ACCIDENT IN PUBLIC BLDG 08/04/2014 ISMAEL SOL APRN Ot E885.9 FALL FROM SLIPPING, TRIPPING, OR STUMBLI 09/16/2014 [facility]AD[facility]H[employer] [facility], FLO L 783.21 LOSS OF WEIGHT 09/16/2014 MAD[facility]HIB[employer] ARTIST, FLO L 789.00 ABDOMINAL PAIN UNSPECIFIED SITE 09/16/2014 MADL EXHIBIT ARTIST, FLO L 789.01 ABDOMINAL PAIN RIGHT UPPER QUADRANT 09/16/2014 MADL EXHIBIT ARTIST, FLO L 789.06 ABDOMINAL PAIN EPIGASTRIC 09/16/2014 MADL EXHIBIT ARTIST, FLO L 783.21 LOSS OF WEIGHT 09/16/2014 MADL EXHIBIT ARTIST, FLO L 789.00 ABDOMINAL PAIN UNSPECIFIED SITE 09/16/2014 MADL EXHIBIT ARTIST, FLO L 789.01 ABDOMINAL PAIN RIGHT UPPER QUADRANT 09/16/2014 MADL EXHIBIT ARTIST, FLO L 789.06 ABDOMINAL PAIN EPIGASTRIC 09/16/2014 ROEL EXHIBIT ARTIST, GODWIN 783.21 LOSS OF WEIGHT 09/16/2014 ROEL EXHIBIT ARTIST, GODWIN 789.00 ABDOMINAL PAIN UNSPECIFIED SITE 09/16/2014 ROEL EXHIBIT ARTIST, GODWIN 789.01 ABDOMINAL PAIN RIGHT UPPER QUADRANT 09/16/2014 ROEL EXHIBIT ARTIST, GODWIN 789.06 ABDOMINAL PAIN EPIGASTRIC 09/16/2014 SONNY EXHIBIT ARTIST, ELIAS A 783.21 LOSS OF WEIGHT 09/16/2014 SONNY EXHIBIT ARTIST, ELIAS A 789.00 ABDOMINAL PAIN UNSPECIFIED SITE 09/16/2014 SONNY EXHIBIT ARTIST, ELIAS A 789.01 ABDOMINAL PAIN RIGHT UPPER QUADRANT 09/16/2014 SONNY APRN, ELIAS A 789.06 ABDOMINAL PAIN EPIGASTRIC 09/16/2014 [facility], DEMOND R 783.21 LOSS OF WEIGHT 09/16/2014 [facility]EL[facility], DEMOND R 789.00 ABDOMINAL PAIN UNSPECIFIED SITE 09/16/2014 AN[facility], DEMOND R 789.01 ABDOMINAL PAIN RIGHT UPPER QUADRANT 09/16/2014 ANGELA [facility], DEMOND R 789.06 ABDOMINAL PAIN EPIGASTRIC 09/16/2014 MADL EXHIBIT ARTIST, FLO L 783.21 LOSS OF WEIGHT 09/16/2014 MADL EXHIBIT ARTIST, FLO L 789.00 ABDOMINAL PAIN UNSPECIFIED SITE 09/16/2014 MADL EXHIBIT ARTIST, FLO L 789.01 ABDOMINAL PAIN RIGHT UPPER QUADRANT 09/16/2014 MADL EXHIBIT ARTIST, FLO L 789.06 ABDOMINAL PAIN EPIGASTRIC 09/16/2014 [...] R 789.06 ABDOMINAL PAIN EPIGASTRIC 09/16/2014 ROEL EXHIBIT ARTIST, GODWIN 783.21 LOSS OF WEIGHT 09/16/2014 ROEL EXHIBIT ARTIST, GODWIN 789.00 ABDOMINAL PAIN UNSPECIFIED SITE 09/16/2014 ROEL EXHIBIT ARTIST, GODWIN 789.01 ABDOMINAL PAIN RIGHT UPPER QUADRANT 09/16/2014 ROEL EXHIBIT ARTIST, GODWIN 789.06 ABDOMINAL PAIN EPIGASTRIC 09/16/2014 MANUEL DO, NICOLA K 783.21 LOSS OF WEIGHT 09/16/2014 NICOLA MANUEL DO K 789.00 ABDOMINAL PAIN UNSPECIFIED SITE 09/16/2014 NICOLA MANUEL DO K 789.01 ABDOMINAL PAIN RIGHT UPPER QUADRANT 09/16/2014 MARAL MANUEL DOA K 789.06 ABDOMINAL PAIN EPIGASTRIC 09/16/2014 ROEL EXHIBIT ARTIST, GODWIN 783.21 LOSS OF WEIGHT 09/16/2014 ROEL EXHIBIT ARTIST, GODWIN 789.00 ABDOMINAL PAIN UNSPECIFIED SITE 09/16/2014 ROEL EXHIBIT ARTIST, GODWIN 789.01 ABDOMINAL PAIN RIGHT UPPER QUADRANT 09/16/2014 ROEL EXHIBIT ARTIST, GODWIN 789.06 ABDOMINAL PAIN EPIGASTRIC 09/16/2014 ROEL EXHIBIT ARTIST, GODWIN 783.21 LOSS OF WEIGHT 09/16/2014 ROEL EXHIBIT ARTIST, GODWIN 789.00 ABDOMINAL PAIN UNSPECIFIED SITE 09/16/2014 ROEL EXHIBIT ARTIST, GODWIN 789.01 ABDOMINAL PAIN RIGHT UPPER QUADRANT 09/16/2014 ROEL EXHIBIT ARTIST, GODWIN 789.06 ABDOMINAL PAIN EPIGASTRIC 09/19/2014 SUNITA [...] ELIAS A V58.69 MEDICATION HIGH RISK 10/17[facility]2014 [facility] IMPULSE CONTROL DISORDER NOS 10/17/2014 [facility], DEMOND R V58.69 MEDICATION HIGH RISK 10/17/2014 FLO GONZALEZ APRN 312.30 I IMPULSE CONTROL DISORDER NOS 10/17/2014 FLO GONZALEZ APRN V58.69 MEDICATION HIGH RISK 10/17/2014 SILVERIO DDS, JOSE 312.30 I IMPULSE CONTROL DISORDER NOS 10/17/2014 SILVERIO DDS, JOSE V58.69 MEDICATION HIGH RISK 10/17/2014 [facility], DEMOND R 312.30 I IMPULSE CONTROL DISORDER NOS 10/17/2014 [facility], DEMOND R V58.69 MEDICATION HIGH RISK 10/17/2014 [facility], DEMOND R 312.30 I IMPULSE CONTROL DISORDER NOS 10/17/2014 [facility], DEMOND R V58.69 MEDICATION HIGH RISK 10/17/2014 RO[facility] EXHIBIT ARTIST, GODWIN 312.30 I IMPULSE CONTROL DISORDER NOS 10/17/2014 ROEL EXHIBIT ARTIST, GODWIN V58.69 MEDICATION HIGH RISK 10/17/2014 MANUEL DO NICOLA K 312.30 I IMPULSE CONTROL DISORDER NOS 10/17/2014 MANUEL DO, NICOLA K V58.69 MEDICATION HIGH RISK 10/17/2014 ROEL EXHIBIT ARTIST, GODWIN 312.30 I IMPULSE CONTROL DISORDER NOS 10/17/2014 ROEL EXHIBIT ARTIST, GODWIN V58.69 MEDICATION HIGH RISK 10/17/2014 ROEL EXHIBIT ARTIST, GODWIN 312.30 I IMPULSE CONTROL DISORDER NOS 10/17/2014 ROEL EXHIBIT ARTIST, GODWIN V58.69 MEDICATION HIGH RISK 10/31/2014 [facility], DEMOND R 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 10/31/2014 MADL EXHIBIT ARTIST, FLO L 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 10/31/2014 SILVERIO DDS, JOSE 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 10/31/2014 [facility], DEMOND R 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 10/31/2014 [facility] [facility], [facility] R 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 10/31/2014 ROEL EXHIBIT ARTIST, GODWIN 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 10/31/2014 MANUEL DO NICOLA K 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 10/31/2014 ROEL EXHIBIT ARTIST, GODWIN 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 10/31/2014 ROEL EXHIBIT ARTIST, GODWIN 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 11/10/2014 MADL EXHIBIT ARTIST, FLO L 785.1 PALPITATIONS 11/10/2014 SILVERIO ALICESJOSE 785.1 PALPITATIONS 11/10/2014 [facility], DEMOND R 785.1 PALPITATIONS 11/10/2014 [facility], DEMOND R 785.1 PALPITATIONS 11/10/2014 ROELSAM MENG, GODWIN 785.1 PALPITATIONS 11/10/2014 NICOLA MANUEL DO K 785.1 PALPITATIONS 11/10/2014 ROEL EXHIBIT ARTIST, GODWIN 785.1 PALPITATIONS 11/10/2014 ROEL MENG, GODWIN 785.1 PALPITATIONS 11/28/2014 FLO GONZALEZ SOFTWARE TEST SPECIALIST Ot 785.1 11/28/2014 ISMAEL SOL APRN Ot 521.00 UNSPEC DENTAL CARIES 11/28/2014 ISMAEL SOL APRN Ot 525.9 DENTAL DISORDER NOS 12/09/2014 ISMAEL SOL APRN Ot 785.1 PALPITATIONS 12/18/2014 NICOLA MANUEL DO V15.82 NICOTINE ABUSE 12/18/2014 GODWIN SEVILLA APRN V15.82 NICOTINE ABUSE 12/18/2014 MICHAEL SEVILLA APRNETTE V15.82 NICOTINE ABUSE 01/01/2015 FLO GONZALEZ SOFTWARE TEST SPECIALIST Ot 785.1 01/21/2015 Ot 521.00 UNSPEC DENTAL CARIES 01/21/2015 Ot 523.10 CHRONIC GINGIVITIS, PLAQUE INDUCED 01/21/2015 Ot 525.9 DENTAL DISORDER NOS 01/23/2015 MICHAEL SEVILLA APRNETTE 296.64 MO BIPOLAR I MIXED W PSYCHOTIC BEHAVIOR 01/23/2015 ROEL MENG GODWIN 296.64 MO BIPOLAR I MIXED W PSYCHOTIC BEHAVIOR 02/25/2015 FLO GONZALEZ SOFTWARE TEST SPECIALIST Ot 785.1 PALPITATIONS 05/18/2015 Ot 427.9 05/18/2015 EVITA JONES, WOLF Carmona Ot 596.59 05/18/2015 EVITA JONES, WOLF Carmona Ot 724.2 05/18/2015 EVITA JONES, WOLF Carmona Ot 729.5 05/18/2015 GERBER JONES, JENNIFER Altamirano Ot 240.9 05/18/2015 GERBER JONES, JENNIFER Altamirano Ot 789.01 05/18/2015 ROSITA GONZALEZA L SOFTWARE TEST SPECIALIST Ot 724.2 05/18/2015 MADL, FLO L SOFTWARE TEST SPECIALIST Ot 785.1 05/18/2015 Ot 427.9 05/18/2015 EVITA JONES, WOLF Carmona Ot 596.59 05/18/2015 EVITA JONES, WOLF Carmona Ot 724.2 05/18/2015 WOLF JAMA MD Ot 729.5 05/18/2015 GERBER JNOES, JENNIFER Altamirano Ot 240.9 05/18/2015 GERBER JONES, JENNIFER Altamirano Ot 789.01 05/18/2015 MADLFLO L SOFTWARE TEST SPECIALIST Ot 724.2 05/18/2015 MADLFLO SOFTWARE TEST SPECIALIST Ot 785.1 05/18/2015 ISMAEL SOL EXHIBIT ARTIST Ot 112.1 CANDIDAL VULVOVAGINITIS 05/18/2015 ISMAEL SOL EXHIBIT ARTIST Ot 599.0 URIN TRACT INFECTION NOS 05/18/2015 ISMAEL SOL EXHIBIT ARTIST Ot 789.09 ABDOMINAL PAIN, OTHER SPECIFIED SITE 05/18/2015 MADLFLO SOFTWARE TEST SPECIALIST Ot 724.2 08/26/2015 MADLFLO L SOFTWARE TEST SPECIALIST Ot 785.1 08/26/2015 ARSEN LOCO DOA K Ot N39.0 URINARY TRACT INFECTION, SITE NOT SPECIF 08/26/2015 ARSEN LOCO DOA K Ot R10.11 RIGHT UPPER QUADRANT PAIN 08/31/2015 ISMALE SOL EXHIBIT ARTIST Ot F19.10 OTHER PSYCHOACTIVE SUBSTANCE ABUSE, UNCO 08/31/2015 ISMAEL SOL EXHIBIT ARTIST Ot R56.9 UNSPECIFIED CONVULSIONS 10/10/2015 ISMAEL SOL EXHIBIT ARTIST Ot F17.210 NICOTINE DEPENDENCE, CIGARETTES, UNCOMPL 10/10/2015 ISMAEL SOL EXHIBIT ARTIST Ot F39 UNSPECIFIED MOOD [AFFECTIVE] DISORDER 10/10/2015 ISMAEL SOL EXHIBIT ARTIST Ot N39.0 URINARY TRACT INFECTION, SITE NOT SPECIF 10/10/2015 ISMAEL SOL EXHIBIT ARTIST Ot T88.7XXA UNSP ADVERSE EFFECT OF DRUG OR MEDICAMEN 11/04/2015 Ot 427.9 11/04/2015 WOLF JAMA MD Ot 596.59 11/04/2015 WOLF JAMA MD Ot 724.2 11/04/2015 WOLF JAMA MD Ot 729.5 11/04/2015 GERBER JONES, JENNIFER Altamirano Ot 240.9 11/04/2015 GERBER JONES, JENNIFER Altamirano Ot 789.01 11/04/2015 MADL, FLO L SOFTWARE TEST SPECIALIST Ot 724.2 11/04/2015 MADL, FLO L SOFTWARE TEST SPECIALIST Ot 785.1 11/19/2015 FELICIA RESTREPO APRN Ot Z87.42 01/02/2016 Ot 427.9 01/02/2016 EVITA JONES, WOLF Carmona Ot 596.59 01/02/2016 EVITA JONES, WOLF Carmona Ot 724.2 01/02/2016 EVITA JONES, WOLF Carmona Ot 729.5 01/02/2016 GERBER JONES, JENNIFER Altamirano Ot 240.9 01/02/2016 GERBER JONES, JENNIFER Altamirano Ot 789.01 01/02/2016 MADL, FLO L SOFTWARE TEST SPECIALIST Ot 724.2 01/02/2016 MADL, FLO L SOFTWARE TEST SPECIALIST Ot 785.1 01/02/2016 FELICIA RESTREPO APRN [...] Altamirano Ot 789.01 01/02/2016 MADL, FLO L SOFTWARE TEST SPECIALIST Ot 724.2 01/02/2016 MADL, FLO L SOFTWARE TEST SPECIALIST Ot 785.1 01/02/2016 FELICIA RESTREPO APRN [...] RIGHT UPPER QUADRANT 03/23/2016 MADL, FLO L SOFTWARE TEST SPECIALIST Ot 724.2 LUMBAGO 03/23/2016 MADL, FLO L SOFTWARE TEST SPECIALIST Ot 785.1 PALPITATIONS 03/23/2016 FELICIA RESTREPO [...] RIGHT UPPER QUADRANT 03/24/2016 MADL, FLO L SOFTWARE TEST SPECIALIST Ot 724.2 LUMBAGO 03/24/2016 MADL, FLO L SOFTWARE TEST SPECIALIST Ot 785.1 PALPITATIONS 03/24/2016 FELICIA RESTREPO [...] RIGHT UPPER QUADRANT 06/29/2016 MADL, FLO L SOFTWARE TEST SPECIALIST Ot 724.2 LUMBAGO 06/29/2016 MADL, FLO L SOFTWARE TEST SPECIALIST Ot 785.1 PALPITATIONS 06/29/2016 FELICIA RESTREPO EXHIBIT ARTIST Ot Z87.42 PERSONAL HISTORY OF OTH DISEASES [...] 07/22/2016 SUNITA BERNAL L Ot Z79.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 07/25/2016 SUNITA BERNAL Ot F32.9 MAJOR DEPRESSIVE DISORDER, SINGLE EPISOD 07/25/2016 SUNITA BERNAL Ot F41.9 ANXIETY DISORDER, UNSPECIFIED 07/25/2016 SUNITA BERNAL Ot I47.1 SUPRAVENTRICULAR TACHYCARDIA 07/25/2016 SUNITA BERNAL Ot O23.42 UNSP INFCT OF URINARY TRACT IN 07/25/2016 SUNITA BERNAL L Ot O99.332 SMOKING (TOBACCO) COMPLICATING 07/25/2016 SUNITA BERNAL Ot R10.31 RIGHT LOWER QUADRANT PAIN 07/25/2016 SUNITA BERNAL Ot Z79.899 OTHER SENIOR CARE (CURRENT) DRUG THERAPY 07/25/2016 SUNITA BERNAL Ot [...] 07/25/2016 SUNITA BERNAL L Ot 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.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 07/25/2016 SUNITA BERNAL Ot [...] OF 07/25/2016 SUNITA BERNAL Ot Z79.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 09/14/2016 JENNIFER MAYES MD, [...] TEETH AND SUPPORTING STRUCTU 04/11/2017 FLO GONZALEZ SOFTWARE TEST SPECIALIST Ot R10.2 PELVIC AND PERINEAL PAIN 04/24/2017 MADLROSITAA L SOFTWARE TEST SPECIALIST Ot R10.2 PELVIC AND PERINEAL PAIN 04/24/2017 Ot 427.9 CARDIAC DYSRHYTHMIA NOS 04/24/2017 WOLF JAMA MD Ot 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 04/24/2017 WOLF JAMA MD Ot 724.2 LUMBAGO 04/24/2017 WOLF JAMA MD Ot 729.5 PAIN IN LIMB 04/24/2017 JENNIFER MAYES MD Ot 240.9 GOITER NOS 04/24/2017 JENNIFER MAYES MD Ot 789.01 ABDOMINAL PAIN, RIGHT UPPER QUADRANT 04/24/2017 EARNESTINE GONZALEZALONDRA Alfred SOFTWARE TEST SPECIALIST Ot 724.2 LUMBAGO 04/24/2017 EARNESTINE GONZALEZALONDRA Alfred SOFTWARE TEST SPECIALIST Ot 785.1 PALPITATIONS 04/24/2017 FELICIA RESTREPO TAQUERIA Ot Z87.42 PERSONAL HISTORY OF OTH DISEASES OF THE 04/24/2017 JENNIFER MAYES MD, Ot O36.0930 MATERNAL CARE FOR OTH RHESUS ISOIMMUN, T 04/24/2017 JENNIFER MAYES MD, Ot Z23 ENCOUNTER FOR IMMUNIZATION 04/24/2017 JENNIFER MAYES MD, Ot Z3A.00 WEEKS OF GESTATION OF NOT SPEC 04/24/2017 ROSITA GONZALEZA Tima SOFTWARE TEST SPECIALIST Ot R10.2 PELVIC AND PERINEAL PAIN 05/03/2017 ROSITA GONZALEZA L SOFTWARE TEST SPECIALIST Ot R10.2 PELVIC AND PERINEAL PAIN 05/03/2017 EARNESTINE GONZALEZNYA L SOFTWARE TEST SPECIALIST Ot R10.2 PELVIC AND PERINEAL PAIN 12/20/2017 JENNIFER MAYES MD, Ot F17.210 NICOTINE DEPENDENCE, CIGARETTES, UNCOMPL 12/20/2017 JENNIFER MAYES MD, Ot F31.9 BIPOLAR DISORDER, UNSPECIFIED 12/20/2017 JENNIFER MAYES MD, Ot F41.9 ANXIETY DISORDER, UNSPECIFIED 12/20/2017 JENNIFER MAYES MD, Ot G40.909 EPILEPSY, UNSP, NOT INTRACTABLE, WITHOUT 12/20/2017 JENNIFER MAYES MD, Ot J45.909 UNSPECIFIED ASTHMA, UNCOMPLICATED 12/20/2017 JENNIFER MAYES MD, Ot N83.202 UNSPECIFIED OVARIAN CYST, LEFT SIDE 12/25/2017 JENNIFER MAYES MD, Ot F17.210 NICOTINE DEPENDENCE, CIGARETTES, UNCOMPL 12/25/2017 JENNIFER MAYES MD, Ot F31.9 BIPOLAR DISORDER, UNSPECIFIED 12/25/2017 JENNIFER MAYES MD, Ot F41.9 ANXIETY DISORDER, UNSPECIFIED 12/25/2017 JENNIFER MAYES MD, Ot G40.909 EPILEPSY, UNSP, NOT INTRACTABLE, WITHOUT 12/25/2017 GERBER JONES, JENNIFER Altamirano Ot J45.909 UNSPECIFIED ASTHMA, UNCOMPLICATED 12/25/2017 GERBER JONES, JENNIFER Altamirano Ot N83.202 UNSPECIFIED OVARIAN CYST, LEFT SIDE Procedures Code Description [place] [address] ROUTINE VENIPUNCTURE 09/28/2012 46959 CBC 09/28/2012 65234 CRP 09/29/2012 23796 URINE TEST (IN- HOUSE) 11/29/2012 36831 URINE TEST (IN- HOUSE) 01/16/2013 01120 TRICHOMONAS (IN-HOUSE) 01/16/2013 15195 GC/CHLAM PROBE (STATE) 01/17/2013 97747 PAP SMEAR 01/17/2013 Q0091 PAP SMEAR OBTAIN SMEAR 01/17/2013 21710 CULTURE UROGENITAL 01/19/2013 56362 URINE TEST (IN- HOUSE) 02/13/2013 25735 URINE TEST (IN- HOUSE) 04/02/2013 35576 XRAY CERVICAL SPINE, 2 OR 3 VIEWS 04/02/2013 40678 XRAY LUMBAR SPINE 2 OR 3 VIEWS 04/02/2013 56477 MRI SPINE (LUMBAR) W/O CONTRAST 05/17/2013 17232 TB TEST INTRADERMAL 06/22/2013 52545 URINE TEST (IN- HOUSE) 08/01/2013 89887 UA LONG DIP 09/11/2013 2681390 GFR CALC (RESULT ONLY) 09/16/2013 12143 CREATININE 09/16/2013 31529 URINE PROTEIN 24 HOUR 09/16/2013 [id number] URINE CREATININE CLEARANCE 24 09/16/2013 73.6 EPISIOTOMY 03/22/2014 00906 ROUTINE VENIPUNCTURE 07/04/2014 54741 MRI SPINE (LUMBAR) W/O CONTRAST 07/04/2014 62444 CMP 07/04/2014 76928 CBC 07/04/2014 54799 ROUTINE VENIPUNCTURE 09/16/2014 60322 US ABDOMINAL ULTRASOUND, COMPLETE 09/16/2014 76504 VITAMIN D 25-HYDROXY (D2,D3 , TOTAL) 09/16/2014 09566 VIT B 12 09/16/2014 43482 TSH 09/16/2014 41825 H PYLORI (IN-HOUSE) 09/16/2014 75916 CBC 09/16/2014 1511521 GFR CALC (RESULT ONLY) 09/16/2014 29347 CMP 09/16/2014 00064 UA W/ CULTURE IF INDICATED 10/29/2014 24961 GC/CHLAM URINE (STATE) 10/29/2014 31025 PSYCH DIAGNOSTIC EVALUATION 10/31/2014 56593 ROUTINE VENIPUNCTURE 11/10/2014 61193 XRAY CHEST 2 VIEW 11/10/2014 41513 CMP 11/10/2014 88384 MAGNESIUM 11/10/2014 27275 CBC 11/10/2014 41028 EKG, TRACING (IN-HOUSE) 11/10/2014 12842 HOLTER MONITOR (OUTPATIENT) 11/10/2014 CARDIOLOG SAM, RANULFO 11/10/2014 76407 PSYTX PT&/FAMILY 45 MINUTES 11/26/2014 [id number] DIVISION OF FEMALE PERINEUM, EXTERNAL AP 11/29/2016 [id number] DELIVERY OF PRODUCTS OF CONCEPTION, EXTE 11/29/2016 [...] GLOBULIN RHOPHYLAC PRSMD TRFSD 06/29/16 1556 NRG [id number] - 06/29/16 15:40 [id number] 1 300ug NRG Lot number - 06/29/16 15:40 Lot number [id number] NRG cell screen - 06/29/16 15:40 cell [...] culture - 06/29/16 16:25 Bacterial urine culture [id number] NRG COLONY COUNT >100,000/ML NRG FTX;REPORTABLE SENSITIVITY [...] identification in genital specimen by aerobe culture [id number] NRG Microscopic examination by wet preparation - [...] culture - 07/22/16 18:23 Bacterial urine culture [id number] NRG COLONY COUNT >100,000/ML NRG FTX;REPORTABLE SENSITIVITY [...] inhibitory concentration - NRG [facility] - 10/05/16 12:19 RH IMMUNE GLOBULIN [facility] PRSMD TRFSD 10/05/16 1300 NRG [id number] - 10/05/16 12:19 [id number] 1 300ug NRG Lot number - 10/05/16 12:19 Lot number [id number] NRG cell screen - 10/05/16 12:19 cell [...] platelet mean volume measurement 10.9 [foz_us] 7.4-10.4 [id number] - 11/08/16 19:04 [id number] SPECIMEN AVAILABLE NR Complete blood count (CBC) with automated white [...] ABO+Rh group AN NRG Transfusion band number [id number] NRG Blood group antibody screen NEGATIVE NRG [...] beta human chorionic gonadotropin (hCG) measurement - 02/27/17 10:55 Urine beta human chorionic gonadotropin (hCG) measurement NEGATIVE NEGATIVE Blood type T Indirect antibody screen panel - 01/09/17 11:04 ABO+Rh group AN NRG Transfusion band number [id number] NRG Blood group antibody screen NEGATIVE NRG [...] Status Pt. Type Provider Facility Loc./Unit Complaint [id number] 02/27/2015 09:25:00 02/27/2015 23:59:59 CLS Outpatient ROEL EXHIBIT ARTISTGODWIN [id number] 01/23/2015 11:47:00 01/23/2015 23:59:59 CLS Outpatient ROEL EXHIBIT ARTIST, GODWIN [id number] 12/18/2014 16:07:00 12/18/2014 23:59:59 CLS Outpatient NICOLA MANUEL DO [id number] 12/18/2014 10:25:00 12/18/2014 23:59:59 CLS Outpatient ROEL EXHIBIT ARTIST, GODWIN [id number] 12/16/2014 10:01:00 12/16/2014 23:59:59 CLS Outpatient ANGELA LSCS, DEMOND Kassie [id number] 11/26/2014 14:03:00 11/26/2014 23:59:59 CLS Outpatient ANGELA LSCS, DEMOND Kassie [id number] 11/21/2014 08:26:00 11/21/2014 23:59:59 CLS Outpatient SILVERIO DDSJOSE [id number] 11/10/2014 09:24:00 11/10/2014 23:59:59 CLS Outpatient MADL EXHIBIT ARTISTFLO [id number] 10/31/2014 11:08:00 10/31/2014 23:59:59 CLS Outpatient ANGELA LSCS, DEMOND Kassie [id number] 10/29/2014 16:35:00 10/29/2014 23:59:59 CLS Outpatient SONNY EXHIBIT ARTIST ELIAS Castañeda [id number] 10/17/2014 11:27:00 10/17/2014 23:59:59 CLS Outpatient ROEL EXHIBIT ARTISTGODWIN [id number] 09/16/2014 09:30:00 09/16/2014 23:59:59 CLS Outpatient MADL EXHIBIT ARTIST, FLO Tima [id number] 09/16/2014 09:30:00 09/16/2014 23:59:59 CLS Outpatient MADL EXHIBIT ARTIST, FLO L [id number] 08/01/2014 13:23:00 08/01/2014 23:59:59 CLS Outpatient ROEL EXHIBIT ARTISTGODWIN [id number] 08/01/2014 13:23:00 08/01/2014 23:59:59 CLS Outpatient ROEL EXHIBIT ARTISTGODWIN [id number] 07/04/2014 08:35:00 07/04/2014 23:59:59 CLS Outpatient MADL EXHIBIT ARTIST, FLO L [id number] 06/10/2014 09:22:00 06/10/2014 23:59:59 CLS Outpatient MICHAEL SEVILLA APRNETTE [id number] 05/27/2014 08:53:00 05/27/2014 23:59:59 CLS Outpatient FLO GONZALEZ APRN [id number] 05/08/2014 11:48:00 05/08/2014 23:59:59 CLS Outpatient ROEL MENGGODWIN [id number] 04/10/2014 09:33:00 04/10/2014 23:59:59 CLS Outpatient WOLF JAMA MD [id number] 03/11/2014 13:00:00 03/11/2014 23:59:59 CLS Outpatient JASON HUNTER APRN [id number] 03/11/2014 13:00:00 03/11/2014 23:59:59 CLS Outpatient JASON HUNTER APRN [id number] 12/10/2013 10:52:00 12/10/2013 23:59:59 CLS Outpatient JASON HUNTER APRN [id number] 10/18/2013 09:59:00 10/18/2013 23:59:59 CLS Outpatient KELY FRIEDMAN DDS [id number] 09/16/2013 12:50:00 09/16/2013 23:59:59 CLS Outpatient NICOLA MANUEL DO [id number] 09/11/2013 16:55:00 09/11/2013 23:59:59 CLS Outpatient WOLF JAMA MD [id number] 08/15/2013 12:35:00 08/15/2013 23:59:59 CLS Outpatient JASON HUNTER APRN [id number] 08/01/2013 09:18:00 08/01/2013 23:59:59 CLS Outpatient NICOLA MANUEL DO [id number] 02/13/2013 13:59:00 02/13/2013 23:59:59 CLS Outpatient [id number] 01/24/2013 15:27:00 01/24/2013 23:59:59 CLS Outpatient JASON SOLANO DO [id number] 01/16/2013 10:21:00 01/16/2013 23:59:59 CLS Outpatient NICOLA MANUEL DO [id number] 11/29/2012 15:05:00 11/29/2012 23:59:59 CLS Outpatient [id number] 09/28/2012 08:28:00 09/28/2012 23:59:59 [place] [id number] 09/03/2012 15:05:00 09/03/2012 23:59:59 CLS Outpatient WOLF JAMA MD [id number] 06/22/2013 09:12:00 Document Registration [id number] 05/15/2013 10:52:00 Document Registration [id number] 05/09/2013 15:22:00 Document Registration [id number] 04/29/2013 08:59:00 Document Registration [id number] 04/26/2013 14:51:00 Document Registration [id number] 04/19/2013 10:48:00 Document Registration [id number] 04/02/2013 13:34:00 Document Registration [id number] 03/26/2013 13:02:00 Document Registration [id number] 03/23/2013 09:54:00 Document Registration [id number] 02/22/2013 12:11:00 Document Registration [id number] 12/21/2017 01:43:00 12/21/2017 02:17:00 DIS Emergency DONNELL JONES, CALVIN Kiser [facility] ER POST OP ABD SURGERY BLEEDING THRU,VERY PAINFULL [id number] 12/20/2017 10:50:00 12/20/2017 16:50:00 DIS Outpatient JENNIFER MAYES MD [facility] SDC ENDOMETRIOSIS, CHRONIC PELVIC PAIN [id number] 11/30/2017 10:02:00 11/30/2017 10:40:00 DIS Outpatient JENNIFER MAYES MD [facility] PREOP ENDOMETRIOSIS, CHRONIC PELVIC PAIN [id number] 04/05/2017 09:36:00 04/05/2017 23:59:59 CLS Outpatient FLO GONZALEZ [facility] RAD R10.2 PELVIC PAIN [id number] 02/03/2017 09:42:00 02/03/2017 23:59:59 CLS Preadmit JENNIFER MAYES MD [facility] REHAB LBP TWO MONTHS ; S/P HYSTERECTOMY [id number] 02/02/2017 12:09:00 02/02/2017 12:47:00 DIS Emergency ARMANDO JONES, JESSIE Workman [facility] ER DENTAL/JAW PAIN [id number] 01/09/2017 10:50:00 01/10/2017 09:45:00 DIS Outpatient JENNIFER MAYES MD [facility] SDC CPP;DUB; ENDOMETRIOSIS [id number] 01/04/2017 12:09:00 01/04/2017 12:30:00 DIS Outpatient JENNIFER MAYES MD [facility] PREOP CPP;DUB; ENDOMETRIOSIS [id number] 12/16/2016 00:59:00 12/16/2016 02:52:00 DIS Emergency CALVIN JACOBO MD [facility] ER NAUSEA,FEVER,HAD BABY ON 11-29-16 [id number] 12/02/2016 10:48:00 12/02/2016 14:00:00 DIS Emergency SUNITA BERNAL [facility] ER PALPITATIONS/BLURRY VISION [id number] 11/29/2016 17:45:00 12/01/2016 13:30:00 DIS Inpatient JENNIFER MAYES MD [facility] LDRP LABOR [id number] 11/26/2016 13:04:00 11/26/2016 15:11:00 DIS Outpatient JENNIFER MAYES MD [facility] WSo RIB PAIN/LOWER BACK PAIN [id number] 11/08/2016 18:28:00 11/08/2016 21:23:00 DIS Outpatient JENNIFER MAYES MD [facility] WSkenneth LOWER BACK PAIN/ RIB PAIN/ABD PAIN/GROIN PAIN [id number] 10/05/2016 12:03:00 10/05/2016 23:59:59 CLS Outpatient JENNIFER MAYES MD [facility] WSkenneth RH NEGATIVE IN [id number] 09/14/2016 12:52:00 09/14/2016 13:45:00 DIS Outpatient JENNIFER MAYES MD [facility] WSo LOOSING MUCUS PLUG 26 WKS PREG [id number] 07/22/2016 16:02:00 07/22/2016 19:50:00 DIS Emergency SUNITA BERNAL [facility] ER FEVER/CANNOT URINATE [id number] 06/29/2016 14:38:00 06/29/2016 18:17:00 DIS Emergency REZA CORONADO MD [facility] ER VAG BLEEDING 15 WKS PREG [id number] 03/23/2016 21:42:00 03/24/2016 01:40:00 DIS Emergency MIRANDA LOCO DO [facility] ER CONFUSED,DROWSY [id number] 01/02/2016 01:08:00 01/02/2016 01:43:00 DIS Emergency CLAUDY MIRANDA BLANTON [facility] ER RT SIDE OF FACE PAINFUL, DENTAL PAIN [id number] 11/04/2015 14:43:00 11/04/2015 23:59:59 CLS Outpatient FELICIA RESTREPO APRN [facility] RAD HISTORY OF ENDOMETRIOSIS [id number] 10/10/2015 16:42:00 10/10/2015 18:09:00 DIS Emergency ISMAEL SOL APRN [facility] ER HIP/BACK PAIN - POSSIBLY [id number] 08/31/2015 17:50:00 08/31/2015 19:59:00 DIS Emergency ISMAEL SOL APRN [facility] ER SEIZURE [id number] 08/26/2015 03:31:00 08/26/2015 05:08:00 DIS Emergency CLAUDY MIRANDA BLANTON [facility] ER RT SIDE ABD PAIN [id number] 05/18/2015 11:11:00 05/18/2015 12:42:00 DIS Emergency ISMAEL SOL APRN [facility] ER ABD/LOWER BACK PAIN UTI SYMPTOMS [id number] 02/26/2015 09:00:00 02/26/2015 23:59:59 CLS Preadmit FLO GONZALEZ SOFTWARE TEST SPECIALIST [facility] CARD PALPITATIONS [id number] 11/27/2014 08:42:00 02/25/2015 00:01:00 DIS Outpatient FLO GONZALEZ SOFTWARE TEST SPECIALIST [facility] CARD PALPITATIONS [id number] 12/09/2014 13:03:00 12/09/2014 14:48:00 DIS Emergency ISMAEL SOL APRN [facility] ER IRR HEART RATE [id number] 11/28/2014 21:04:00 11/28/2014 21:30:00 DIS Emergency ISMAEL SOL APRN [facility] ER TOOTH ACHE [id number] 09/18/2014 10:34:00 09/25/2014 11:11:00 DIS Outpatient JOSE FRIEDMAN MD [facility] REHAB LUMBAGO AND CERVICALGIA [id number] 09/19/2014 17:05:00 09/19/2014 18:13:00 DIS Emergency SUNITA BERNAL [facility] ER L SIDE FACIAL/DENTAL PAIN [id number] 08/11/2014 14:55:00 08/11/2014 23:59:59 CLS Outpatient FLO GONZALEZ SOFTWARE TEST SPECIALIST [facility] RAD LBP [id number] 08/04/2014 15:27:00 08/04/2014 17:54:00 DIS Emergency ISMAEL SOL APRN [facility] ER FALL [id number] 06/05/2014 15:36:00 06/05/2014 16:31:00 DIS Emergency REZA CORONADO MD [facility] ER CHEST CONGESTION, COUGH [id number] 05/01/2014 01:24:00 05/01/2014 03:36:00 DIS Emergency MIGDALIA RAMON DO [facility] ER BACK PAIN [id number] 04/24/2014 08:45:00 04/24/2014 23:59:59 CLS Outpatient JENNIFER MAYES MD [facility] RAD RUQ PAIN,GOITER [id number] 03/22/2014 13:08:00 03/26/2014 11:55:00 DIS Inpatient JENNIFER MAYES MD [facility] WS LABOR [id number] 03/20/2014 21:50:00 03/21/2014 09:00:00 DIS Inpatient JENNIFER MAYES MD [facility] WS RIB PAIN [id number] 03/14/2014 00:56:00 03/14/2014 01:44:00 DIS Outpatient JENNIFER MAYES MD [facility] WSo PRESSURE [id number] 02/11/2014 21:51:00 02/11/2014 22:50:00 DIS Outpatient JENNIFER MAYES MD [facility] WSo C/O CRAMPING [id number] 11/13/2013 15:06:00 11/13/2013 18:10:00 DIS Outpatient JENNIFER MAYES MD [facility] WSo WATERY DISCHARGE SINCE 1400 [id number] 05/20/2013 08:48:00 05/20/2013 23:59:59 CLS Outpatient WOLF JAMA MD [facility] RAD LOW BACK PAIN,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,BLADDER DISFUNCT [id number] 04/30/2013 14:31:00 04/30/2013 16:18:00 DIS Emergency MEJIA JONES, YAW Fernando [facility] ER LOW BACK/RT HIP PAIN ABSCESS RIGHT THIGH [id number] 04/20/2013 11:49:00 04/20/2013 13:40:00 DIS Emergency JESSIE ROBERTS MD [facility] ER RAPID HEART BEAT, SOA [id number] 05/18/2015 11:12:00 Document Registration [id number] 05/18/2015 11:12:00 Document Registration [id number] 01/21/2015 00:32:00 Document Registration [id number] 09/25/2014 14:23:00 Document Registration [id number] 12/11/2012 16:00:00 Document Registration [id number] 12/08/2012 15:53:00 Document Registration [id number] 01/26/2012 09:17:00 Document Registration [id number] 01/18/2012 18:33:00 Document Registration [id number] 09/12/2011 15:20:00 Document Registration [id number] 06/27/2011 15:54:00 Document Registration [id number] 05/26/2010 22:10:00 Document Registration [id number] 05/06/2010 09:15:00 Document Registration
[2018-01-09] MEDS ORDERED: ARIP5TAB20 (00:34)
[2018-01-09] MEDS ORDERED: ORPH100T PO (00:51)
[2018-01-09] MEDS ORDERED: METH4TAB PO (00:51)
[2018-01-09] MEDS ORDERED: ONDA4TAB8 PO (00:51)
--- NOTE | 2018-01-09 00:52 | ED Back Pain ---
General Chief Complaint: Back Problems Stated Complaint: SEVERE BACK PAIN GOES DOWN INTO LEGS & HIPS Nursing Triage Note: lower back pain radiating down both legs, denies injury. Nursing Sepsis Screen: No Definite Risk Allergies and Home Medications Allergies Coded Allergies: Penicillins (Unverified Allergy, Mild, PT ABLE TO TAKE ANCEF, 03/26/14) diclofenac (Unverified Allergy, Unknown, 01/21/15) divalproex sodium (Verified Allergy, Unknown, 08/26/15) Home Medications Clonazepam 0.5 Mg Tablet, 0.5 MG PO TID, (Reported) Lamotrigine 150 Mg Tablet, 150 MG PO DAILY, (Reported) Mirtazapine 30 Mg Tablet, 30 MG PO HS, (Reported) Past [id number]-[id number]-Arkvuf Hx Patient Social History Alcohol Use: Denies Use Recreational Drug Use: No Smoking Status: Current Everyday Smoker Type Used: Cigarettes 2nd Hand Smoke Exposure: Yes Recent Foreign Travel: No Contact w/Someone Who Travel: No Recent Infectious Disease Expo: No Recent Hopitalizations: No Immunizations Up To Date Tetanus Booster (TDap): Less than 5yrs PED Vaccines UTD: Yes Date of Influenza Vaccine: Aug 30, 2017 Seasonal Allergies Seasonal Allergies: No Surgeries History of Surgeries: Yes (LAPAROTOMY) Surgeries: Abdominal, Adenoidectomy, Hysterectomy, Oophorectomy, Tonsillectomy Respiratory History of Respiratory Disorde: Yes Respiratory Disorders: Asthma Cardiovascular History of Cardiac Disorders: Yes (Hx. 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 Genitourinary History of Genitourinary Disor: No Gastrointestinal History of Gastrointestinal Di: No Musculoskeletal History of Musculoskeletal Dis: Yes Musculoskeletal Disorders: Degenerate Disk Disease, Arthritis, Back Injury, Scoliosis, Chronic Back Pain Endocrine History of Endocrine Disorders: No HEENT History of HEENT Disorders: No Cancer History of Cancer: No Psychosocial History of Psychiatric Problem: Yes Behavioral Health Disorders: Anxiety, Bipolar, Depression Integumentary History of Skin or Integumenta: No Blood Transfusions History of Blood Disorders: No Adverse Reaction to a Blood Tr: No Family Medical History Significant Family History: No Pertinent Family Hx Family Medial History: Family history: Hypertension (mother, MGM, and PGM) Heart disease (mother and father) History of - anemia (family Hx of blood transfusions) Infertile Kidney disease (MGM) Physical Exam Vital Signs Vital Signs - First Documented 01/09/18 00:20 Temp 96.5 Pulse 97 Resp 18 B/P (MAP) 121/81 (94) Pulse Ox 98 O2 Delivery Room Air Capillary Refill : Less Than 3 Seconds Progress/Results/Core Measures Results/Orders My Orders Orders - MIRANDA LOCO DO Methylprednisolone Sod Succ (Solu-Medrol (01/09/18 01:00) Orphenadrine Injection (Norflex Injectio (01/09/18 01:00) Diphenhydramine Injection (Benadryl Inje (01/09/18 01:00) Vital Signs/I&O Vital Sign - Last 12Hours 01/09/18 00:20 Temp 96.5 Pulse 97 Resp 18 B/P (MAP) 121/81 (94) Pulse Ox 98 O2 Delivery Room Air Blood Pressure Mean: 94 Departure Impression Impression: Primary Impression: Chronic low back pain Disposition: 01 HOME, SELF-CARE Condition: Stable Departure-Patient Inst. Referrals: [facility] (PCP/Family) Primary Care Physician Patient Instructions: MANAGING YOUR CHRONIC PAIN, Low Back Pain (DC) Add. Discharge Instructions: ALTERNATE ICE AND HEAT TO SORE AREAS AT 20 MINUTE INTERVALS NO LIFTING OVER 10 LBS, NO TWISTING OR BENDING AT WAIST X 1 WEEK FOLLOW UP WITH [facility] IN 2-3 DAYS FOR FURTHER CARE--CALL IN AM FOR APPOINTMENT All discharge instructions reviewed with patient and/or family. Voiced understanding. Scripts Orphenadrine Citrate (Orphenadrine Citrate) 100 Mg Tablet.er 100 MG PO BID, #14 TAB FOR MUSCLE SPASMS Prov: MIRANDA LOCO DO 01/09/18 Ondansetron (Zofran Odt) 4 Mg Tab.rapdis 4 MG PO Q4H for Nausea/Vomiting, #10 TAB Prov: MIRANDA LOCO DO 01/09/18 Methylprednisolone (Medrol) 4 Mg Tab.ds.pk 4 MG PO UD, #1 PKG Prov: MIRANDA LOCO DO 01/09/18 MIRANDA LOCO DO Jan 09, 2018 00:52
[2018-01-09] MEDS ORDERED: ORPHENADRINE 60 MG/2 ML (NORFLEX) AMP IM ONE (01:00)
[2018-01-09] MEDS ORDERED: diphenhydrAMINE 50 MG/ML INJ (BENADRYL) IM ONE (01:00)
[2018-01-09] MEDS ORDERED: methylPREDNISolone 125 MG (Solu-MEDROL) VIAL IM ONE (01:00)
[2018-01-09 01:21] VITALS: BP 117/78
== END 2018-01-09 01:21 | disposition home or self-care (01) ==
LOC: EDUNIT# 00:05 → ER 00:07
DX: G89.29 Other chronic pain (principal); M54.5 Low back pain; F41.9 Anxiety disorder, unspecified; F31.9 Bipolar disorder, unspecified; F17.210 Nicotine dependence, cigarettes, uncomplicated; Z90.710 Acquired absence of both cervix and uterus; Z87.42 Personal history of other diseases of the female genital tract; Z86.79 Personal history of other diseases of the circulatory system; Z90.89 Acquired absence of other organs; Z88.0 Allergy status to penicillin; Z88.6 Allergy status to analgesic agent; Z88.1 Allergy status to other antibiotic agents
CPT/HCPCS: 96372; 99284

== ENCOUNTER 2018-04-27 18:43 | Emergency (ER) | payer OTHER ==
[~2018-04-27] VITALS: Ht 167.6 cm; Wt 61.2 kg
[~2018-04-27 18:43] MED LIST changes: +ARIP5TAB20; +ORPH100T PO; -RANI150T15 PO; +RANI150T46 PO
--- OUTSIDE RECORDS SUMMARY | 2018-04-27 18:50 | XMS REPORT ---
Author Author TOMASZ MARGARITA [facility] Address [address] [place] [address] Care Team Providers Care Logistic Specialist Name Role Phone TOMASZ, MARGARITA Unavailable PROBLEMS Type Condition ICD9-CM Code [id number] Code Onset Dates Condition Status SNOMED Code Problem Generalized anxiety disorder F41.1 Active 64458817 Problem Acute non intractable tension-type headache G44.209 Active 420158981 Problem Acute right-sided low back pain with right-sided sciatica M54.41 Active 434471358 Problem Post traumatic stress disorder F43.10 Active 09625484 Problem Bipolar disorder, current episode mixed, moderate F31.62 Active 019124860 Problem Endometriosis N80.9 Active 058682987 Problem Borderline personality disorder F60.3 Active 03591344 ALLERGIES Substance Reaction Event Type Date Status Thioridazine HCl tachycardia Drug Allergy Jul, Active Penicillin V Potassium rash Drug Allergy Jul, Active Diclofenac Sodium nausea Drug Allergy Jul, Active Depakote fatigue Drug Allergy Jul, Active ENCOUNTERS Encounter Location Date Diagnosis [facility] [id number] [place] [address] 31936- 1148 March, [facility] [id number] [place] [address] 77610- 7145 March, [facility] [id number] [place] [address] 96206- 9755 16 Feb, 2018 Bipolar disorder, current episode mixed, moderate F31.62 ; Post traumatic stress disorder F43.10 and Borderline personality disorder F60.3 [facility] [id number] [place] [address] 28312- 1094 Feb, Bipolar disorder, current episode mixed, moderate F31.62 ; Post traumatic stress disorder F43.10 ; Borderline personality disorder F60.3 and Other penitentiary (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 Z79.899 [place] [id number] [place] [address] 08805- 0783 Jan, Encounter for immunization Z23 [place] [id number] [place] [address] 11498- 8709 Jan, [place] [id number] [place] [address] 22653- 6905 Jan, Bipolar disorder, current episode mixed, moderate F31.62 [facility] [id number] [place] [address] 69643 -7182 Jan, Lumbar back pain M54.5 [place] [id number] [place] [address] 34210- 6373 Dec, Low back pain M54.5 [place] [id number] [place] [address] 39373- 3108 Dec, Bipolar disorder, current episode mixed, moderate F31.62 [place] [id number] [place] [address] 09976- 5356 Dec, Generalized anxiety disorder F41.1 and Bipolar disorder, current episode mixed, moderate F31.62 [id number] [place] [address] 20574 -5239 Nov, Acute non intractable tension-type headache G44.209 [place] [id number] [place] [address] 99112- 6274 Nov, Bipolar disorder, current episode mixed, moderate F31.62 ; Post traumatic stress disorder F43.10 and Borderline personality disorder F60.3 [place] [id number] [place] [address] 84612- 7827 Nov, Bipolar disorder, current episode mixed, moderate F31.62 [facility] [id number] [place] [address] 33339 -3679 Nov, Abdominal pain R10.9 ; History of PCOS Z87.42 ; History of endometriosis Z87.42 and Pelvic pain R10.2 [facility] [id number] [place] [address] 75290- 4947 Nov, [facility] [id number] [place] [address] -[address] Oct, History of PCOS Z87.42 ; History of endometriosis Z87.42 and Pain R52 [facility] [id number] [place] [address] 859849- 7538 Oct, Bipolar disorder, current episode mixed, moderate F31.62 ; Post traumatic stress disorder F43.10 and Borderline personality disorder F60.3 [facility] [id number] [place] [address] 89359- 4996 Oct, Bipolar disorder, current episode mixed, moderate F31.62 [place] [id number] [place] [address] 44866- 7592 Sep, Bipolar disorder, current episode mixed, moderate F31.62 ; Post traumatic stress disorder F43.10 ; Borderline personality disorder F60.3 and Other long term care pharmacist (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 Z79.899 [facility] [id number] [place] [address] 54347- 6704 Sep, Bipolar disorder, current episode mixed, moderate F31.[address] [facility] [id number] [place] [address] 53121 -5832 Sep, Endometriosis N80.9 and Acute right-sided low back pain with right-sided sciatica M54.41 [facility] [address] [place] [address] 91198- 9900 Aug, [facility] [id number] [place] [address] 25314- 3698 Aug, Bipolar disorder, current episode mixed, moderate F31.62 ; Post traumatic stress disorder F43.10 and Borderline personality disorder F60.3 [facility] [id number] [place] [address] 53324- 3366 Aug, Bipolar disorder, current episode mixed, moderate F31.62 ; Post traumatic stress disorder F43.10 and Borderline personality disorder F60.3 [facility] [address] [place] [address] 70275- 0899 13 Jul, 2017 Bipolar disorder, current episode mixed, moderate F31.62 ; Post traumatic stress disorder F43.10 and Borderline personality disorder F60.3 [facility] [id number] [place] [address] 98082 -9445 11 Jul, 2017 Pharyngitis, unspecified etiology J02.9 and Streptococcal pharyngitis J02.0 [facility] [id number] [place] [address] 88414- 1305 16 Jun, 2017 Bipolar disorder, current episode mixed, moderate F31.62 ; Post traumatic stress disorder F43.10 and Borderline personality disorder F60.3 [place] [id number] [place] [address] 82937- 7524 May, [facility] [id number] [place] [address] 35524- 4542 May, [facility] [id number] [place] [address] 49662- 3009 May, Bipolar disorder, current episode mixed, moderate F31.62 and Generalized anxiety disorder F41.1 [facility] [address] [place] [address] 93453- 0820 March, Bipolar disorder, current episode mixed, moderate F31.62 and Generalized anxiety disorder F41.1 [facility] [id number] [place] [address] 60839- 8315 March, Pelvic pain R10.2 [facility] [id number] [place] [address] 98671- 9192 March, [facility] [id number] [place] [address] 26616- 7747 05 Feb, 2017 Bipolar disorder, current episode mixed, moderate F31.62 and Generalized anxiety disorder F41.1 [place] [address] [place] [address] 31760- 1989 Jan, [facility] [id number] [place] [address]- 8413 Jan, Bipolar disorder, current episode mixed, moderate F31.62 [facility] [id number] [place] [address] 27666- 9040 Jan, Bipolar disorder, current episode mixed, moderate F31.62 [facility] [id number] [place] [address] 11042- 7641 Jan, Bilateral low back pain without sciatica M54.5 [facility] [address] [id number] Jan, Dental caries K02.9 and Dental examination Z01.20 [facility] [address] [id number] Jan, Encounter for dental examination and cleaning without abnormal findings Z01.20 [facility] [id number] [place] [address] 64678- 0004 Jan, Bipolar disorder, current episode mixed, moderate F31.62 and Generalized anxiety disorder F41.1 [facility] [id number] [place] [address] 88147- 9733 Dec, [facility] [id number] [place] [address] 08053- 6124 Dec, Bipolar disorder, current episode mixed, moderate F31.62 and Generalized anxiety disorder F41.1 [facility] [id number] [place] [address] 72830- 4100 Dec, Other fatigue R53.83 and Orthostatic hypotension I95.1 [facility] [id number] [place] [address] [id number] Nov, Dental examination Z01.20 [facility] [address] [place] [address] 93954 -7167 Nov, Bronchitis J40 [facility] [id number] [place] [address] 04750- 3879 Oct, Generalized anxiety disorder F41.1 [facility] [id number] [place] [address] 15991- 9446 14 Sep, 2016 Bipolar disorder, current episode mixed, moderate F31.62 and Generalized anxiety disorder F41.1 [facility] [id number] [place] [address] 64194- 2125 Sep, Bipolar disorder, current episode mixed, moderate F31.62 and Generalized anxiety disorder F41.1 [facility] [id number] [place] [address] 17794 -0921 08 Jul, 2016 Upper respiratory tract infection, unspecified type J06.9 [facility] [id number] [place] [address] 34583- 1019 Jun, Bipolar disorder, current episode mixed, moderate F31.62 and Generalized anxiety disorder F41.1 [facility] [id number] [place] [address] 33113- 2278 Apr, [place] [id number] [place] [address] 66548- 4961 Apr, Encounter for test, result positive Z32.01 [facility] [id number] [place] [address] 88027- 8286 March, [facility] [id number] [place] [address] 54844- 9520 March, Bipolar disorder, current episode mixed, moderate F31.62 and Generalized anxiety disorder F41.1 [place] [id number] [place] [address] 50626- 9998 March, Bipolar disorder, current episode mixed, moderate F31.62 and Generalized anxiety disorder F41.1 [facility] [id number] [place] [address] 77221- 0246 March, [facility] [address] [place] [address]- 4981 March, [facility] [id number] [place] [address] 38038- 8001 Feb, [facility] [id number] [place] [address] 13914- 7859 Feb, [facility] [id number] [place] [address] 66409- 8474 Feb, Bipolar disorder, current episode mixed, moderate F31.62 and Generalized anxiety disorder F41.1 [facility] [id number] [place] [address] 19590- 1235 Jan, Abdominal pain R10.9 [facility] [id number] [place] [address] 00219- 3071 Jan, [facility] [id number] [place] [address] 63874- 0417 29 Dec, 2015 Dental examination Z01.20 [facility] [id number] [place] [address] 92515- 6464 22 Dec, 2015 Dental examination Z01.20 and Dental caries K02.9 [facility] [address] [place] [address] 37463- 3265 15 Dec, 2015 Bipolar disorder, current episode mixed, moderate F31.62 and Generalized anxiety disorder F41.1 [facility] [address] [place] [address] 97041- 5143 Dec, [facility] [address] [place] [address] 26068- 6628 Nov, Bipolar disorder, current episode mixed, moderate F31.62 ; Generalized anxiety disorder F41.1 and Seizure-like activity R56.9 [facility] [address] [address]- 8888 Oct, [facility] [address] [place] [address] 62315- 7231 Oct, Bipolar disorder, current episode mixed, moderate F31.62 [place] [address] 88871- 7792 14 Oct, 2015 Well woman exam Z01.419 ; Encounter for screening for malignant neoplasm of cervix Z12.4 ; Seizure-like activity R56.9 ; Lower abdominal pain R10.30 ; Unprotected sexual intercourse Z72.51 ; Vaginal discharge N89.8 ; History of endometriosis Z87.42 ; History of PCOS Z87.42 ; Desire for Z31.9 ; History of abnormal cervical Pap smear Z87.898 ; Anxiety associated with depression F41.8 ; History of self-harm Z91.5 ; Poor dentition K08.8 ; Tobacco use Z72.0 and Hot flashes N95.1 [place] [address] 01587- 2560 09 Oct, 2015 Seizure-like activity R56.9 and Irregular periods N92.6 [place] [address] 42599- 0338 Oct, Bipolar disorder, current episode mixed, moderate F31.62 ; Generalized anxiety disorder F41.1 and Underweight R63.6 [place] [address] 54618- 1523 Oct, [place] [address] 85002- 8121 Oct, Generalized anxiety disorder F41.1 and Unspecified mood [ affective] disorder F[address] [facility] [address] 54943 -4236 Oct, Back pain M54.9 and Anxiety F41.9 [place] [address] 49410- 7376 Oct, [facility] [address] 40037 -6576 Sep, Arm pain, left M79.602 [place] [address] 38501- 3342 Sep, [facility] [id number] [address] Sep, Dental examination Z01.20 and Dental caries K02.9 [facility] [address] [place] [address] 46381- 6325 Sep, Generalized anxiety disorder F41.1 and Unspecified episodic mood disorder F39 [facility] [id number] [place] [address] 47856- 4734 Sep, Bilateral low back pain without sciatica M54.5 and Seizure- like activity R56.9 [facility] [id number] [place] [address] 91650- 9890 Aug, [facility] [id number] [place] [address] 51116- 9126 Aug, [facility] [id number] [place] [address] 49993- 7709 Aug, [facility] [id number] [place] [address] 63519- 4546 Aug, Visual changes H53.9 and Bilateral low back pain without sciatica M54.5 [facility] [address] [place] [address] 17214- 5011 Jul, [facility] [address] [place] [address] 62144- 1509 Jun, Bipolar I disorder, most recent episode (or current) mixed, moderate 296.62 ; Generalized anxiety disorder 300.02 and High risk medication use V58.69 [facility] [address] [place] [address] 37761- 6062 Jun, [facility] [id number] [place] [address] 59961- 5678 May, [facility] [address] [address]- 4371 May, Bipolar I disorder, most recent episode (or current) mixed, moderate 296.62 and Generalized anxiety disorder 300.02 [facility] [id number] [address] May, Dental examination V72.2 [facility] [id number] [place] [address] 74972162- 6127 March, Bipolar I disorder, most recent episode (or current) mixed, moderate 296.62 and Generalized anxiety disorder 300.02 [facility] [id number] [place] [address] 09749823- 2386 March, [facility] [id number] [place] [address] 61024- 6947 March, [facility] [id number] [place] [address] 13757461- 0695 March, Underweight 783.22 ; Hand pain, right 729.5 and Reflux gastritis 535.40 [facility] [id number] [place] [address] 91901- 5767 Feb, [facility] [id number] [place] [address] 28502- 4956 Feb, [facility] [id number] [place] [address] 47013- 8404 Jan, [facility] [id number] [place] [address] 40759- 7028 18 Jan, 2015 [facility] [address] [place] [address] 96561- 6930 16 Jan, 2015 [facility] [address] [place] [address] 60079- 6162 Jan, [facility] [id number] [place] [address] 40738- 9180 Jan, [facility] [id number] [place] [address] 53184- 5468 Jan, [facility] [id number] [place] [address] 79021- 8502 05 Jan, 2015 [facility] [place] [facility] [address] [id number] [place] [address]- 4556 05 Jan, 2014 [facility] [place] [facility] [address] [facility] [id number] [place] [address]- 7547 04 Jan, 2014 [facility] [place] [facility] [address] [facility] [id number] [place] [address]- 5017 Jan, 2014 [facility] [place] [facility] [address] [facility] [id number] [place] [address]- 8266 Jan, 2014 [facility] [place] [facility] [address] [facility] [id number] [place] [address]- 3933 Jan, [facility] [place] [facility] [address] [facility] [id number] [place] [address]- 2092 Dec, 2014 [facility] [place] [facility] [address] [facility] [id number] [place] [address]- 9372 20 Dec, 2014 [facility] [place] [facility] [address] [facility] [id number] [place] [address]- 1020 19 Dec, 2014 [facility] [place] [facility] [address] [facility] [id number] [place] [address]- 8995 19 Dec, 2014 [facility] [place] [facility] [address] [facility] [id number] [place] [address]- 4122 18 Dec, 2014 [facility] [place] [facility] [address] [facility] [id number] [place] [address]- 8611 17 Dec, 2014 [facility] [place] [facility] [address] [facility] [id number] [address]- 3174 17 Dec, 2014 [facility] [place] [facility] [address] [facility] [id number] [place] [address]- 5411 16 Dec, 2014 [facility] [place] [facility] [address] [facility] [id number] [address]- 4891 16 Dec, 2014 [facility] [place] [facility] [address] [facility] [id number] [address]- 9134 Dec, 2014 [facility] [place] [facility] [address] [id number] [place] [address]- 5935 Dec, 2014 [facility] [place] [facility] [address] [id number] [place] [address]- 5285 Dec, 2014 [facility] [place] [facility] [address] [id number] [place] [address]- 7463 Dec, 2014 [facility] [place] [facility] [address] [id number] [place] [address]- 4397 Dec, 2014 [facility] [place] [facility] [address] [id number] [place] [address]- 3765 Dec, 2014 [facility] [place] [facility] [address] [id number] [place] [address]- 8322 Dec, 2014 [facility] [place] [facility] [address] [facility] [id number] [place] [address]- 0909 Dec, 2014 [facility] [place] [facility] [address] [id number] [place] [address]- 6976 Dec, 2014 [facility] [place] [facility] [address] [id number] [place] [address]- 4845 Dec, [facility] [place] [facility] [address] [id number] [place] [address]- 1340 Nov, [facility] [place] [facility] [address] [id number] [place] [address]- 6788 Nov, [facility] [place] [facility] [address] [id number] [place] [address]- 8719 Nov, [facility] [place] [facility] [address] [id number] [place] [address]- 3093 Nov, [facility] [place] [facility] [address] [facility] [id number] [place] [address]- 4339 Nov, [facility] [place] [facility] [address] [facility] [id number] [place] [address]- 8480 Nov, [facility] [place] [facility] [address] [id number] [place] [id number] Nov, [facility] [address] [id number] [place] [address]- 2546 Nov, [facility] [address] [id number] [place] [address]- 2546 Nov, [facility] [address] [id number] [place] [address] Nov, [facility] [address] [id number] [place] [address] 2546 Nov, [facility] [address] [id number] [place] [address]- 7999 Nov, [facility] [address] [id number] [place] [address]- 7925 Oct, [facility] [address] [id number] [place] [address] Oct, [facility] [address] [id number] [place] Oct, [facility] [address] [id number] [place] [address] Oct, [facility] [address] [facility] [id number] [place] [address] [address] Oct, [facility] [address] [id number] [place] [address] 29 Oct, 2014 [facility] [place] [facility] [address] [id number] [place] [address] Oct, [facility] [place] [facility] [address] [id number] [place] [address] Oct, [facility] [place] [facility] [address] [id number] [place] [address] Oct, [facility] [place] [facility] [address] [id number] [place] [address] Oct, [facility] [place] [facility] [address] [id number] [place] [address] Oct, [facility] [place] [facility] [address] [id number] [place] [address] Oct, [facility] [place] [facility] [address] [id number] [place] [address] Sep, [facility] [place] [facility] [address] [id number] [place] [address] Sep, [facility] [place] [facility] [address] [id number] [place] [address] Sep, [facility] [place] [facility] [address] [id number] [place] [address] Sep, [facility] [place] [facility] [address] [id number] [place] [address] Sep, [facility] [place] [facility] [address] [id number] [place] [address] Sep, [facility] [place] [facility] [address] [id number] [place] [address] Sep, [facility] [place] [facility] [address] [id number] [place] [address] Sep, [facility] [place] [facility] [address] [id number] [place] [address] Aug, [facility] [place] [facility] [address] [id number] [place] [address] Aug, [facility] [place] [facility] [address] [id number] [place] [address] Aug, [facility] [place] [facility] [address] [id number] [place] [address] Aug, [facility] [place] [facility] [address] [id number] [place] [address] Aug, [facility] [place] [facility] [address] [address] [id number] [address] Aug, [facility] [place] [facility] [address] [id number] [place] [address] Aug, [facility] [place] [facility] [address] [id number] [place] [address] Aug, [facility] [place] [facility] [address] [id number] [place] [address]383 Aug, [facility] [place] [facility] [address] [id number] [place] [address]- 1182 Aug, [facility] [place] [facility] [address] [id number] [place] [address] 5067 Aug, [facility] [place] [facility] [address] [id number] [place] [address] 1349 Aug, [facility] [place] [facility] [address] [id number] [place] [address] 2640 Aug, [facility] [place] [facility] [address] [id number] [place] [address]- 0927 Jul, [facility] [place] [facility] [address] [id number] [place] [address] 8762 Jul, [facility] [place] [facility] [address] [id number] [place] [address] 6033 Jul, [facility] [place] [facility] [address] [id number] [place] [address]- 4206 Jul, [facility] [place] [facility] [address] [id number] [address] 6286 Jun, [facility] [place] [facility] [address] [id number] [place] [address]- 1093 Jun, [facility] [place] [facility] [address] [id number] [place] [address]- 3200 Jun, [facility] [place] [facility] [address] [id number] [place] [address]- 2584 Jun, [facility] [place] [facility] [address] [id number] [place] [address]- 6616 Jun, [facility] [address] [id number] [place] [address]- 7530 Jun, [facility] [place] [facility] [address] [id number] [place] [address] 4137 May, [facility] [place] [facility] [address] [id number] [place] [address]- 9146 May, [facility] [place] [facility] [address] [id number] [place] [address]- 3064 May, [facility] [address] [id number] [place] [address]- 3350 May, [facility] [place] [facility] [address] [id number] [place] [address]- 4922 Apr, [facility] [place] [facility] [address] [id number] [place] [address]- 7327 Apr, [facility] [address] [id number] [place] [address] 7172 March, [facility] [place] [facility] [address] [id number] [place] [address] 0323 March, [facility] [address] [id number] [place] [address]- 1418 March, [facility] [place] [facility] [address] [id number] [place] [address]- 0182 March, [facility] [place] [facility] [address] [id number] [place] [address]- 8358 March, [facility] [place] [facility] [address] [id number] [place] [address]- 3737 March, [facility] [place] [facility] [address] [id number] [place] [address]- 0671 Feb, [facility] [place] [facility] [address] [id number] [place] [address]- 1393 Feb, [facility] [place] [facility] [address] [id number] [place] [address]- 1181 Dec, [facility] [place] [facility] [address] [id number] [place] [address]- 8216 Dec, [facility] [place] [facility] [address] [id number] [place] [address]- 0574 Nov, [facility] [place] [facility] [address] [id number] [place] [address]- 3422 Nov, [facility] [place] [facility] [address] [id number] [place] [address]- 6296 Sep, [facility] [place] [facility] [address] [id number] [place] [address]- 5733 Sep, [facility] [place] [facility] [address] [id number] [place] [address]- 2991 Sep, [facility] [place] [facility] [address] [id number] [place] [address]- 5044 Sep, [facility] [place] [facility] [address] [id number] [place] [address]- 6140 Sep, [facility] [place] [facility] [address] [id number] [place] [address]- 6038 Sep, [facility] [place] [facility] [address] [id number] [address]- 1785 Sep, [facility] [place] [facility] [address] [id number] [address]- 4192 Aug, [facility] [place] [facility] [address] [id number] [place] [address]- 2265 Aug, [facility] [place] [facility] [address] [id number] [place] [address] 3048 Aug, [facility] [place] [facility] [address] [id number] [address]- 8593 Aug, [facility] [place] [facility] [address] [id number] [place] [address]- 5915 Aug, [facility] [address] [id number] [place] [address]- 6354 Aug, [facility] [place] [facility] [address] [id number] [place] [address]- 2270 Jul, [facility] [place] [facility] [address] [id number] [place] [address]- 4049 Jul, [facility] [place] [facility] [address] [id number] [place] [address]- 7397 Jul, [facility] [address] [id number] [place] [address]- 7424 Jul, [facility] [place] [facility] [address] [id number] [place] [address]- 0658 Jun, [facility] [address] [id number] [place] [address]- 4305 Jun, [facility] [place] [facility] [address] [id number] [place] [address]- 5144 Jun, [facility] [place] [facility] [address] [id number] [place] [address]- 6840 Jun, [facility] [place] [facility] [address] [id number] [place] [address]- 4618 Jun, [facility] [place] [facility] [address] [id number] [place] [address]- 1618 Jun, [facility] [place] [facility] [address] [id number] [place] [address]- 1994 Jun, [facility] [place] [facility] [address] [id number] [place] [address]- 7964 May, [facility] [place] [facility] [address] [id number] [place] [address]- 5276 May, [facility] [place] [facility] [address] [id number] [place] [address]- 4189 May, [facility] [place] [facility] [address] [id number] [place] [address]- 7298 15 May, 2013 [facility] [place] [facility] [address] [id number] [place] [address]- 7736 13 May, 2013 [facility] [place] [facility] [address] [id number] [place] [address]- 2544 05 May, 2013 [facility] [place] [facility] [address] [id number] [place] [address]- 3501 03 May, 2013 [facility] [place] [facility] [address] [id number] [place] [address]- 2951 28 Apr, 2013 [facility] [place] [facility] [address] [id number] [place] [address]- 5109 27 Apr, 2013 [facility] [place] [facility] [address] [id number] [place] [address]- 6634 27 Apr, 2013 [facility] [place] [facility] [address] [id number] [place] [address]- 9639 26 Apr, 2013 [facility] [place] [facility] [address] [id number] [place] [address]- 4839 20 Apr, 2013 [facility] [place] [facility] [address] [id number] [place] [address]- 2250 18 Apr, 2013 [facility] [place] [facility] [address] [id number] [place] [address]- 8769 18 Apr, 2013 [facility] [place] [facility] [address] [id number] [place] [address]- 1167 18 Apr, 2013 [facility] [place] [facility] [address] [id number] [place] [address]- 2541 17 Apr, 2013 [facility] [place] [facility] [address] [id number] [place] [address]- 2089 14 Apr, 2013 [facility] [place] [facility] [address] [id number] [place] [address]- 5343 14 Apr, 2013 [facility] [place] [facility] [address] [id number] [place] [address]- 5291 Apr, [facility] [address] [id number] [place] [address]- 5245 Apr, [facility] [place] [facility] [address] [id number] [place] [address]- 9389 Apr, [facility] [place] [facility] [address] [id number] [place] [address]- 9203 Apr, [facility] [place] [facility] [address] [id number] [place] [address]- 6619 Apr, [facility] [address] [id number] [place] [address]- 5515 Apr, [facility] [place] [facility] [address] [id number] [place] [address]- 1536 Apr, [facility] [place] [facility] [address] [id number] [place] [address]- 3160 Apr, [facility] [place] [facility] [address] [id number] [place] [address]- 6688 March, [facility] [place] [facility] [address] [id number] [place] [address]- 3741 March, [facility] [place] [facility] [address] [id number] [place] [address]- 6095 March, [facility] [place] [facility] [address] [id number] [address]- 2163 March, [facility] [place] [facility] [address] [id number] [address]- 2333 March, [facility] [place] [facility] [address] [id number] [place] [address]- 0144 March, [facility] [place] [facility] [address] [id number] [place] [address]- 5838 March, [facility] [place] [facility] [address] [id number] [place] [address]- 0046 Feb, [facility] [place] [facility] [address] [id number] [place] [address]- 8696 03 Feb, 2013 [facility] [address] [id number] [place] [address]- 3210 27 Jan, 2013 [facility] [address] [id number] [place] [address]- 9706 18 Jan, 2013 [facility] [address] [id number] [place] [address]- 9965 15 Jan, 2013 [facility] [address] [id number] [place] [address]- 3102 14 Jan, 2013 [facility] [address] [id number] [place] [address]- 2976 13 Jan, 2013 [facility] [address] [id number] [place] [address]- 7828 12 Jan, 2013 [facility] [address] [id number] [place] [address]- 0203 11 Jan, 2013 [facility] [address] [id number] [place] [address]- 7401 09 Jan, 2013 [facility] [address] [id number] [place] [address]- 0991 08 Jan, 2013 [facility] [address] [id number] [place] [address]- 7429 07 Jan, 2013 [facility] [address] [id number] [place] [address]- 3531 06 Jan, 2013 [facility] [address] [id number] [place] [address]- 3475 17 Nov, 2012 [facility] [place] [facility] [address] [id number] [place] [address]- 4254 Oct, [facility] [place] [facility] [address] [id number] [place] [address]- 0276 Oct, [facility] [address] [id number] [place] [address]- 2736 Oct, [facility] [place] [facility] [address] [id number] [place] [address]- 3690 Oct, [facility] [place] [facility] [address] [id number] [place] [address]- 5621 Sep, [facility] [place] [facility] [address] [id number] [place] [address]- 2228 Sep, [facility] [place] [facility] [address] [id number] [place] [address]- 0495 Sep, [facility] [place] [facility] [address] [id number] [place] [address]- 4332 Sep, [facility] [place] [facility] [address] [id number] [place] [address]- 8645 Sep, [facility] [place] [facility] [address] [id number] [place] [address]- 2298 Sep, [facility] [place] [facility] [address] [id number] [place] [address]- 9830 Sep, [facility] [place] [facility] [address] [id number] [place] [address]- 5817 Sep, [facility] [place] [facility] [address] [id number] [place] [address]- 2388 Sep, [facility] [place] [facility] [address] [id number] [place] [address]- 6432 Sep, [facility] [place] [facility] [address] [id number] [address]- 4656 Sep, [facility] [place] [facility] [address] [id number] [place] [address]- 8970 Aug, [facility] [place] [facility] [address] [id number] [place] [address]- 4171 Aug, [facility] [place] [facility] [address] [id number] [place] [address]- 9140 Aug, [facility] [place] [facility] [address] [id number] [address]- 4828 28 Jul, 2012 [facility] [place] [facility] [address] [id number] [place] [address]- 1836 25 Jul, 2012 [facility] [place] [facility] [address] [id number] [place] [address]- 2236 19 Jul, 2012 [facility] [place] [facility] [address] [id number] [place] [address]- 2786 17 Jul, 2012 [facility] [place] [facility] [address] [id number] [place] [address]- 2218 20 Jun, 2012 [facility] [place] [facility] [address] [id number] [place] [address]- 1956 16 Jun, 2012 [facility] [place] [facility] [address] [id number] [place] [address]- 5290 15 Jun, 2012 [facility] [place] [facility] [address] [id number] [place] [address]- 0457 15 Jun, 2012 [facility] [place] [facility] [address] [id number] [place] [address]- 6778 13 Jun, 2012 [facility] [place] [facility] [address] [id number] [place] [address]- 2161 18 Mar, 2012 [facility] [place] [facility] [address] [id number] [place] [address]- 5056 04 Feb, 2012 [facility] [place] [facility] [address] [id number] [place] [address]- 8692 28 Jan, 2012 [facility] [place] [facility] [address] [id number] [place] [address]- 7373 27 Jan, 2012 [facility] [place] [facility] [address] [id number] [place] [address]- 1637 22 Jan, 2012 [facility] [place] [facility] [address] [id number] [place] [address]- 3514 14 Jan, 2012 [facility] [place] [facility] [address] [id number] [place] [address]- 1859 14 Jan, 2012 [facility] [place] [facility] [address] [id number] [place] [address]- 8209 14 Jan, 2012 [facility] [address] [id number] [place] [address]- 1623 28 Dec, 2011 [facility] [place] [facility] [address] [id number] [place] [address]- 2546 Dec, [facility] [place] [facility] [address] [id number] [place] [address]- 2036 23 Dec, 2011 [facility] [place] [facility] [address] [id number] [place] [address]- 4273 Dec, [facility] [place] [facility] [address] [id number] [place] [address]- 2011 20 Dec, 2011 [facility] [place] [facility] [address] [facility] [id number] [place] [address]- 8090 19 Dec, 2011 [facility] [place] [facility] [address] [facility] [id number] [place] [address]- 0686 17 Dec, 2011 [facility] [place] [facility] [address] [facility] [id number] [place] [address]- 3052 16 Dec, 2011 [facility] [place] [facility] [address] [facility] [id number] [place] [address]- 5311 Nov, [facility] [place] [facility] [address] [facility] [id number] [place] [address]- 8423 Oct, [facility] [place] [facility] [address] [id number] [address]- 0540 18 Sep, 2011 [facility] [place] [facility] [address] [id number] [place] [address]- 5021 18 Sep, 2011 [facility] [place] [facility] [address] [id number] [place] [address]- 0552 17 Sep, 2011 [facility] [place] [facility] [address] [facility] [id number] [place] [address]- 6554 17 Sep, 2011 [facility] [place] [facility] [address] [id number] [place] [address]- 2546 Sep, [facility] [address] [facility] [id number] [place] [address]- 2546 Sep, [facility] [address] [facility] [id number] [place] [address]- 2546 Jan, [facility] [address] [facility] [id number] [place] [address]- 2546 Apr, IMMUNIZATIONS No Known Immunizations SOCIAL HISTORY Never Assessed REASON FOR VISIT F/U PLAN OF CARE Activity Details Follow Up 4 Weeks Reason: f/u VITAL SIGNS Height 66 in 2017-07-26 Weight 120.0 lbs 2017-07-26 Heart Rate 76 bpm 2017-07-26 Respiratory Rate 20 2017-07-26 BMI 19.37 kg/m2 2017-07-26 Blood pressure systolic 120 mmHg 2017-07-26 Blood pressure diastolic 74 mmHg 2017-07-26 MEDICATIONS Medication Instructions Dosage Frequency Start Date End Date Duration Status Azithromycin 250 MG Orally Once a day 2 tablets on the first day, then 1 tablet daily for 4 days 24h Jul, Jul, 5 day(s) Active Valium 5 MG Orally - please fill after 04/12/17. three times a day 1 tablet as needed 8h 10 Mar, 2017 Active Seroquel 100 MG Orally Once a day 1 tablet 24h 17 May, 2017 Active Lamictal 100 mg Orally Once a day 1 tablet 24h 13 Jul, 2017 30 day(s) Active RESULTS No Results PROCEDURES No Known procedures INSTRUCTIONS MEDICATIONS ADMINISTERED No Known Medications MEDICAL (GENERAL) HISTORY Type Description Date Medical History bipolar disorder Medical History PTSD Medical History endometriosis Medical History PCOS (Polycystic Ovary Syndrome) Medical History Seizures Medical History Endometriosis Medical History History of Self Harm Surgical History laparoscopy for endometriosis 2008 Surgical History tonsillectomy Surgical History partial hysterectomy 12/2016 Surgical History Left ovary removed 12/2016 Hospitalization History [facility] Admission x4 2009 most recent admission Hospitalization History [facility] overdose 2010 Hospitalization History child 11/29/2016
--- OUTSIDE RECORDS SUMMARY | 2018-04-27 18:50 | XMS REPORT ---
Author Author TOMASZ MARGARITA [facility] Address [address] [place] [address] Care Team Providers Care Technical Administrator Name Role Phone Mahad TOLBERTYEN Unavailable PROBLEMS Type Condition ICD9-CM Code FJV24-QC Code Onset Dates Condition Status SNOMED Code Problem Generalized anxiety disorder F41.1 Active 16707356 Problem Acute non intractable tension-type headache G44.209 Active 161346654 Problem Acute right-sided low back pain with right-sided sciatica M54.41 Active 990167605 Problem Post traumatic stress disorder F43.10 Active 19028505 Problem Bipolar disorder, current episode mixed, moderate F31.62 Active 991496917 Problem Endometriosis N80.9 Active 385554363 Problem Borderline personality disorder F60.3 Active 21394219 ALLERGIES Substance Reaction Event Type Date Status Thioridazine HCl tachycardia Drug Allergy Aug, Active Penicillin V Potassium rash Drug Allergy Aug, Active Diclofenac Sodium nausea Drug Allergy Aug, Active Depakote fatigue Drug Allergy Aug, Active ENCOUNTERS Encounter Location Date Diagnosis [place] [id number] [place] [address] 53357- 7376 Apr, [facility] [id number] [place] [address] 97846- 2645 March, [facility] [id number] [place] [address] 75249- 9500 March, Bipolar disorder, current episode mixed, moderate F31.62 ; Post traumatic stress disorder F43.10 and Borderline personality disorder F60.3 [facility] [id number] [place] [address] 77017- 6851 Feb, Encounter for immunization Z23 [facility] [id number] [place] [address] 75173- 5659 Feb, Bipolar disorder, current episode mixed, moderate F31.62 ; Post traumatic stress disorder F43.10 and Borderline personality disorder F60.3 [place] [address] [place] [id number]- 0314 Feb, Bipolar disorder, current episode mixed, moderate F31.62 ; Post traumatic stress disorder F43.10 ; Borderline personality disorder F60.3 and 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 [place] [address] [place] 341916- 5922 Jan, Encounter for immunization Z23 [place] [address] 739470- 0934 Jan, [place] [address] 070444- 7391 Jan, Bipolar disorder, current episode mixed, moderate F31.62 [facility] [address] 02691 -7573 Jan, Lumbar back pain M54.5 [place] [address] 48754- 5894 Dec, Low back pain M54.5 [place] [address] 75728- 1479 Dec, Bipolar disorder, current episode mixed, moderate F31.62 [place] [address] [place] [id number] [place] [address] 18713- 0216 Dec, Generalized anxiety disorder F41.1 and Bipolar disorder, current episode mixed, moderate F31.62 [facility] [address] 81090 -8806 Nov, Acute non intractable tension-type headache G44.209 [place] [address] [id number] [place] [address] 41207- 1431 Nov, Bipolar disorder, current episode mixed, moderate F31.62 ; Post traumatic stress disorder F43.10 and Borderline personality disorder F60.3 [facility] [id number] [place] [address] 12704- 4540 Nov, Bipolar disorder, current episode mixed, moderate F31.62 [facility] [id number] [place] [address] 33241 -0020 Nov, Abdominal pain R10.9 ; History of PCOS Z87.42 ; History of endometriosis Z87.42 and Pelvic pain R10.2 [place] [address] 83630- 5877 Nov, [facility] [address] 06621 -9204 Oct, History of PCOS Z87.42 ; History of endometriosis Z87.42 and Pain R52 [place] [address] 77518- 1739 Oct, Bipolar disorder, current episode mixed, moderate F31.62 ; Post traumatic stress disorder F43.10 and Borderline personality disorder F60.3 [place] [address] [id number] [place] [address] 37807- 3004 Oct, Bipolar disorder, current episode mixed, moderate F31.62 [place] [address] [id number] [place] [address] 79697- 0138 Sep, Bipolar disorder, current episode mixed, moderate F31.62 ; Post traumatic stress disorder F43.10 ; Borderline personality disorder F60.3 and 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 [place] [address] [place] [id number] [place] [address] 22557- 1952 Sep, Bipolar disorder, current episode mixed, moderate F31.62 [facility] [id number] [place] [address] 02304 -5984 Sep, Endometriosis N80.9 and Acute right-sided low back pain with right-sided sciatica M54.41 [place] [address] 75616- 3511 Aug, [facility] [address] [address]- 5928 Aug, Bipolar disorder, current episode mixed, moderate F31.62 ; Post traumatic stress disorder F43.10 and Borderline personality disorder F60.3 [facility] [address] [address]- 3370 11 Aug, 2017 Bipolar disorder, current episode mixed, moderate F31.62 ; Post traumatic stress disorder F43.10 and Borderline personality disorder F60.3 [facility] [address] [place] [address] 82915- 3866 13 Jul, 2017 Bipolar disorder, current episode mixed, moderate F31.62 ; Post traumatic stress disorder F43.10 and Borderline personality disorder F60.3 [facility] [address] [address] -2074 11 Jul, 2017 Pharyngitis, unspecified etiology J02.9 and Streptococcal pharyngitis J02.0 [facility] [address] [place] [address] 33640- 4912 16 Jun, 2017 Bipolar disorder, current episode mixed, moderate F31.62 ; Post traumatic stress disorder F43.10 and Borderline personality disorder F60.3 [facility] [address] [address]- 7179 May, [place] [address] [place] [address] 89086- 3012 May, [facility] [address] [place] [address] 86766- 9270 May, Bipolar disorder, current episode mixed, moderate F31.62 and Generalized anxiety disorder F41.1 [facility] [address] [place] [address] 56008- 2715 March, Bipolar disorder, current episode mixed, moderate F31.62 and Generalized anxiety disorder F41.1 [place] [address] [place] [address] 75244- 3034 March, Pelvic pain R10.2 [facility] [id number] [place] [address] 07316- 2789 March, [facility] [id number] [place] [address] 4750 Feb, Bipolar disorder, current episode mixed, moderate F31.62 and Generalized anxiety disorder F41.1 [facility] [address] [place] 341916- 8881 Jan, [facility] [address] [id number] [place] [address] 00202- 2029 Jan, Bipolar disorder, current episode mixed, moderate F31.62 [place] [id number] [place] [address] 30089- 4286 Jan, Bipolar disorder, current episode mixed, moderate F31.62 [place] [address] [id number] [place] [address] 37132- 6604 Jan, Bilateral low back pain without sciatica M54.5 [facility] [id number] [place] [address] [id number] Jan, Dental caries K02.9 and Dental examination Z01.20 [facility] [address] [id number] [place] [address] [id number] Jan, Encounter for dental examination and cleaning without abnormal findings Z01.20 [facility] [id number] [place] [address] 10176- 8334 Jan, Bipolar disorder, current episode mixed, moderate F31.62 and Generalized anxiety disorder F41.1 [facility] [address] [place] [id number] [place] [address] 29663- 5740 Dec, [facility] [address] [id number] [place] [address] 1273 Dec, Bipolar disorder, current episode mixed, moderate F31.62 and Generalized anxiety disorder F41.1 [facility] [address] [place] [id number] [place] [address] 2546 03 Dec, 2016 Other fatigue R53.83 and Orthostatic hypotension I95.1 [facility] [address] [place] [address] [id number] Nov, Dental examination Z01.20 [facility] [address] [place] [address] 51533 -7447 Nov, Bronchitis J40 [facility] [address] [place] [id number] [place] [address] 88736- 8592 14 Oct, 2016 Generalized anxiety disorder F41.1 [place] [address] [id number] [place] [address] 16749- 0945 14 Sep, 2016 Bipolar disorder, current episode mixed, moderate F31.62 and Generalized anxiety disorder F41.1 [place] [address] [place] [id number] [place] [address] 78909- 4173 Sep, Bipolar disorder, current episode mixed, moderate F31.62 and Generalized anxiety disorder F41.1 [facility] [address] [place] [address] 70351 -6084 08 Jul, 2016 Upper respiratory tract infection, unspecified type J06.9 [place] [address] [place] [id number] [place] [address] 78063- 2100 Jun, Bipolar disorder, current episode mixed, moderate F31.62 and Generalized anxiety disorder F41.1 [place] [address] [place] [address] 62100- 5503 Apr, [place] [address] [place] [id number] [place] [address] 46203- 1318 Apr, Encounter for test, result positive Z32.01 [facility] [id number] [place] [address] 90847- 2169 March, [facility] [id number] [place] [address] 65949- 5239 March, Bipolar disorder, current episode mixed, moderate F31.62 and Generalized anxiety disorder F41.1 [facility] [address] [address]- 9358 March, Bipolar disorder, current episode mixed, moderate F31.62 and Generalized anxiety disorder F41.1 [facility] [address] [address]- 7508 March, [facility] [address] [place] [address] 49205- 3657 March, [facility] [address] [place] [address] 10471- 2913 Feb, [facility] [address] [place] [address] 48953- 6585 Feb, [facility] [id number] [place] [address] 97808- 4654 Feb, Bipolar disorder, current episode mixed, moderate F31.62 and Generalized anxiety disorder F41.1 [facility] [address] [place] [address] 08040- 5523 Jan, Abdominal pain R10.9 [facility] [address] [place] [address] 44670- 6542 Jan, [facility] [address] [place] [address] 05240- 5561 29 Dec, 2015 Dental examination Z01.20 [facility] [address] [place] [address] 99033- 0598 Dec, Dental examination Z01.20 and Dental caries K02.9 [facility] [address] [address]- 2693 15 Dec, 2015 Bipolar disorder, current episode mixed, moderate F31.62 and Generalized anxiety disorder F41.1 [facility] [address], [place] [address]- 9318 Dec, [facility] [address] [place] [address] 54321- 3325 Nov, Bipolar disorder, current episode mixed, moderate F31.62 ; Generalized anxiety disorder F41.1 and Seizure-like activity R56.9 [facility] [id number] [place] [address] 55566- 6966 Oct, [facility] [id number] [place] [address] 78241- 9320 Oct, Bipolar disorder, current episode mixed, moderate F31.62 [facility] [address] 73201- 1540 Oct, Well woman exam Z01.419 ; Encounter for [...] Tobacco use Z72.0 and Hot flashes N95.1 [facility] [address] 61953- 4685 Oct, Seizure-like activity R56.9 and Irregular periods N92.6 [place] [address] [id number] [place] [address] 64642- 2133 Oct, Bipolar disorder, current episode mixed, moderate F31.62 ; Generalized anxiety disorder F41.1 and Underweight R63.6 [facility] [address] [place] [address] 80650- 0922 Oct, [facility] [address] 42608- 0909 Oct, Generalized anxiety disorder F41.1 and Unspecified mood [ affective] disorder F39 [facility] [id number] [place] [address] 71522 -7169 Oct, Back pain M54.9 and Anxiety F41.9 [facility] [address] [place] [address] 16199- 6108 Oct, [facility] [id number] [place] [address] 16837 -5017 Sep, Arm pain, left M79.602 [facility] [id number] [place] [address] 22530- 6693 Sep, [facility] [id number] [place] [address] [id number] Sep, Dental examination Z01.20 and Dental caries K02.9 [facility] [address] 09358- 3127 Sep, Generalized anxiety disorder F41.1 and Unspecified episodic mood disorder F39 [facility] [id number] [place] [address] 07869- 2829 Sep, Bilateral low back pain without sciatica M54.5 and Seizure- like activity R56.9 [facility] [id number] [place] [address] 18572- 2965 Aug, [facility] [id number] [place] [address] 25031- 4239 Aug, [facility] [id number] [place] [address] 78921- 1939 Aug, [facility] [id number] [place] [address] 06544- 3108 Aug, Visual changes H53.9 and Bilateral low back pain without sciatica M54.5 [facility] [id number] [place] [address] 08128- 7221 Jul, [facility] [id number] [place] [address] 98894- 5865 Jun, Bipolar I disorder, most recent episode (or current) mixed, moderate 296.62 ; Generalized anxiety disorder 300.02 and High risk medication use V58.69 [facility] [address] [place] [address] 85532- 5452 Jun, [facility] [id number] [place] [address] 50022- 7538 May, [facility] [id number] [place] [address] 98119- 6607 May, Bipolar I disorder, most recent episode (or current) mixed, moderate 296.62 and Generalized anxiety disorder 300.02 [facility] [id number] [place] [address] [id number] May, Dental examination V72.2 [facility] [address] 57141- 6477 March, Bipolar I disorder, most recent episode (or current) mixed, moderate 296.62 and Generalized anxiety disorder 300.02 [facility] [id number] [place] [address] 12885- 5974 March, [facility] [id number] [place] [address] 07605- 1652 March, [facility] [id number] [place] [address] 83107- 3098 March, Underweight 783.22 ; Hand pain, right 729.5 and Reflux gastritis 535.40 [facility] [id number] [place] [address] 22289- 0115 Feb, [facility] [id number] [place] [address] 12398- 9155 Feb, [facility] [id number] [place] [address] 38894- 6721 Jan, [facility] [id number] [place] [address] 60062- 3676 Jan, [facility] [id number] [place] [address] 10203- 9518 16 Jan, 2015 [facility] [id number] [place] [address] 54474- 3565 16 Jan, 2015 [facility] [place] [facility] [address] [id number] [place] [address]- 9817 Jan, [facility] [place] [facility] [address] [id number] [place] 9111 Jan, [facility] [place] [facility] [address] [facility] [id number] [place] [address]- 4432 Jan, 2014 [facility] [place] [facility] [address] [facility] [id number] [place] [address]- 8351 05 Jan, 2014 [facility] [place] [facility] [address] [facility] [id number] [place] [address]- 1152 Jan, [facility] [place] [facility] [address] [facility] [id number] [place] [address]- 0723 Jan, [facility] [place] [facility] [address] [facility] [id number] [address]- 7644 Jan, [facility] [place] [facility] [address] [facility] [id number], [place] [address]- 6063 Jan, [facility] [place] [facility] [address] [facility] [id number], [place] [address]- 6656 Dec, 2014 [facility] [place] [facility] [address] [facility] [id number], [place] [address]- 5515 Dec, 2014 [facility] [place] [facility] [address] [facility] [id number], [place] [address]- 8170 Dec, 2014 [facility] [place] [facility] [address] [facility] [id number], [place] [address]- 7748 Dec, 2014 [facility] [place] [facility] [address] [facility] [id number], [place] [address]- 3920 18 Dec, 2014 [facility] [place] [facility] [address] [facility] [id number], [place] [address]- 6986 Dec, 2014 [facility] [place] [facility] [address] [facility] [id number], [place] [address]- 0994 Dec, 2014 [facility] [place] [facility] [address] [id number] [place] [address]- 5680 Dec, 2014 [facility] [place] [facility] [address] [id number] [place] [address]- 2772 Dec, 2014 [facility] [place] [facility] [address] [id number] [place] [address]- 4524 Dec, 2014 [facility] [place] [facility] [address] [id number] [place] [address]- 8517 Dec, 2014 [facility] [place] [facility] [address] [id number] [place] [address]- 7235 Dec, 2014 [facility] [place] [facility] [address] [id number] [place] [address]- 5956 Dec, 2014 [facility] [place] [facility] [address] [id number] [place] [address]- 9007 Dec, 2014 [facility] [place] [facility] [address] [id number] [place] [address]- 0484 Dec, 2014 [facility] [place] [facility] [address] [id number] [place] [address]- 8281 Dec, 2014 [facility] [place] [facility] [address] [id number] [place] [address]- 8980 Dec, 2014 [facility] [place] [facility] [address] [id number] [place] [address]- 1293 Dec, 2014 [facility] [place] [facility] [address] [id number] [place] [address]- 2195 Dec, 2014 [facility] [place] [facility] [address] [id number] [place] [address]- 2273 Nov, [facility] [place] [facility] [address] [id number] [place] [address]- 7801 Nov, [facility] [place] [facility] [address] [id number] [place] [address]- 3352 Nov, [facility] [place] [facility] [address] [id number] [place] [address]- 1146 Nov, [facility] [address] [id number] [place] [address]- 8206 Nov, [facility] [address] [id number] [place] [address]- 2546 Nov, [facility] [address] [id number] [place] [id number] Nov, [facility] [place] [facility] [address] [id number] [place] [address]- 2546 Nov, [facility] [address] [id number] [place] [address]- 2546 Nov, [facility] [address] [id number] [place] [address] Nov, [facility] [address] [id number] [place] [address]- 0256 Nov, [facility] [address] [id number] [place] [address]- 2049 Nov, [facility] [address] [id number] [place] [address]- 9349 Oct, [facility] [address] [id number] [place] [address]- 2708 Oct, [facility] [place] [facility] [address] [id number] [place] [address]- 5244 Oct, [facility] [place] [facility] [address] [id number] [place] [address]- 6832 30 Oct, 2014 [facility] [place] [facility] [address] [id number] [place] [address]- 1308 Oct, [facility] [place] [facility] [address] [id number] [place] [address] Oct, [facility] [place] [facility] [address] [id number] [place] [address] Oct, [facility] [place] [facility] [address] [id number] [place] [address] Oct, [facility] [place] [facility] [address] [id number] [place] Oct, [facility] [place] [facility] [address] [id number] [place] [address] Oct, [facility] [place] [facility] [address] [id number] [place] [address] Oct, [facility] [place] [facility] [address] [id number] [place] [address] Oct, [facility] [place] [facility] [address] [id number] [place] [address] Sep, [facility] [place] [facility] [address] [id number] [place] [address] Sep, [facility] [place] [facility] [address] [id number] [place] [address] Sep, [facility] [place] [facility] [address] [id number] [place] [address] Sep, [facility] [place] [facility] [address] [id number] [place] [address] Sep, [facility] [place] [facility] [address] [id number] [place] [address] Sep, [facility] [place] [facility] [address] [id number] [place] [address] Sep, [facility] [place] [facility] [address] [id number] [place] [address] Sep, [facility] [place] [facility] [address] [id number] [place] [address] Aug, [facility] [place] [facility] [address] [id number] [place] [address] Aug, [facility] [place] [facility] [address] [id number] [place] [address] Aug, [facility] [place] [facility] [address] [id number] [place] [address] Aug, [facility] [place] [facility] [address] [id number] [place] [address] Aug, [facility] [place] [facility] [address] [id number] [place] [address] Aug, [facility] [place] [facility] [address] [id number] [place] [address] Aug, [facility] [place] [facility] [address] [id number] [place] [address] Aug, [facility] [place] [facility] [address] [id number] [place] [address] Aug, [facility] [place] [facility] [address] [id number] [place] [address] Aug, [facility] [place] [facility] [address] [id number] [place] [address] Aug, [facility] [place] [facility] [address] [id number] [place] [address] Aug, [facility] [place] [facility] [address] [id number] [place] [address] Aug, [facility] [place] [facility] [address] [id number], [place] [address] Jul, [facility] [place] [facility] [address] [id number], [place] [address] 22 Jul, 2014 [facility] [place] [facility] [address] [id number] [place] [address] Jul, [facility] [place] [facility] [address] [id number] [place] [address] Jul, [facility] [place] [facility] [address] [id number] [place] [address] Jun, [facility] [place] [facility] [address] [id number] [place] [address] Jun, [facility] [place] [facility] [address] [id number] [place] [address] Jun, [facility] [place] [facility] [address] [id number] [place] [address] 44[address] Jun, [facility] [place] [facility] [address] [id number] [place] [address]51 Jun, [facility] [place] [facility] [address] [id number] [place] [address] Jun, [facility] [place] [facility] [address] [id number] [place] [address] May, [facility] [place] [facility] [address] [id number] [place] [address] May, [facility] [place] [facility] [address] [id number] [place] [address] 99[address] May, [facility] [place] [facility] [address] [id number] [place] [address] 9865 May, [facility] [place] [facility] [address] [id number] [place] [address] Apr, [facility] [place] [facility] [address] [id number] [place] [address] 8846 Apr, [facility] [place] [facility] [address] [id number] [place] [address] 0446 March, [facility] [place] [facility] [address] [id number] [place] [address] 9931 March, [facility] [place] [facility] [address] [id number] [place] [address]- 0082 March, [facility] [place] [facility] [address] [id number] [place] [address]- 1689 March, [facility] [place] [facility] [address] [id number] [place] [address]- 96[address] March, [facility] [place] [facility] [address] [id number] [place] [address] 3833 March, [facility] [place] [facility] [address] [id number] [place] [address]- 2097 Feb, [facility] [place] [facility] [address] [id number] [place] [address]- 9724 Feb, [facility] [place] [facility] [address] [id number] [place] [address]- 6655 Dec, [facility] [place] [facility] [address] [id number] [place] [address]- 0521 Dec, [facility] [place] [facility] [address] [id number] [place] [address] 3436 Nov, [facility] [place] [facility] [address] [id number] [place] [address]- 5106 Nov, [facility] [place] [facility] [address] [id number] [place] [address]- 7118 Sep, [facility] [place] [facility] [address] [id number] [place] [address]- 7892 Sep, [facility] [place] [facility] [address] [id number] [place] [address]- 7836 Sep, [facility] [place] [facility] [address] [id number], [place] [address] Sep, [facility] [place] [facility] [address] [id number], [place] [address] 279[address] Sep, [facility] [place] [facility] [address] [id number] [place] [address]- 4554 Sep, [facility] [place] [facility] [address] [id number] [place] [address]- 6515 Sep, [facility] [place] [facility] [address] [id number] [place] [address]- 5188 Aug, [facility] [place] [facility] [address] [id number] [place] [address] 1129 30 Aug, 2013 [facility] [address] [id number] [place] [address]- 6[address] Aug, [facility] [place] [facility] [address] [id number] [place] [address]- 1147 Aug, [facility] [place] [facility] [address] [id number] [place] [address] Aug, [facility] [place] [facility] [address] [id number] [place] [address]- 5[address] Aug, [facility] [place] [facility] [address] [id number] [place] [address]- 1726 Jul, [facility] [place] [facility] [address] [id number] [place] [address]- 3263 Jul, [facility] [place] [facility] [address] [id number] [place] [address]- 4883 16 Jul, 2013 [facility] [place] [facility] [address] [id number] [place] [address]- 9787 Jul, [facility] [place] [facility] [address] [id number] [place] [address]- 7645 Jun, [facility] [place] [facility] [address] [id number] [place] [address]- 9841 Jun, [facility] [place] [facility] [address] [id number] [place] [address]- 6996 Jun, [facility] [place] [facility] [address] [id number] [place] [address]- 4982 Jun, [facility] [place] [facility] [address] [id number] [place] [address]- 1486 Jun, [facility] [place] [facility] [address] [id number] [place] [address]- 7394 Jun, [facility] [place] [facility] [address] [id number] [place] [address]- 7707 Jun, [facility] [place] [facility] [address] [id number] [place] [address]- 0970 May, [facility] [place] [facility] [address] [id number] [place] [address]- 0939 23 May, 2013 [facility] [place] [facility] [address] [id number] [place] [address]- 1810 16 May, 2013 [facility] [place] [facility] [address] [id number] [place] [address]- 4325 15 May, 2013 [facility] [place] [facility] [address] [id number] [place] [address]- 6571 13 May, 2013 [facility] [place] [facility] [address] [id number] [place] [address]- 8210 05 May, 2013 [facility] [place] [facility] [address] [id number] [place] [address]- 8465 May, [facility] [place] [facility] [address] [id number] [place] [address]- 8636 28 Apr, 2013 [facility] [place] [facility] [address] [id number] [place] [address]- 0961 Apr, [facility] [place] [facility] [address] [id number] [place] [address]- 5790 Apr, [facility] [place] [facility] [address] [id number] [place] [address]- 2515 Apr, [facility] [place] [facility] [address] [id number] [place] [address]- 9358 Apr, [facility] [place] [facility] [address] [id number] [place] [address]- 7301 Apr, [facility] [place] [facility] [address] [id number] [place] [address]- 8528 Apr, [facility] [place] [facility] [address] [id number] [place] [address]- 7238 18 Apr, 2013 [facility] [place] [facility] [address] [id number] [place] [address]- 1845 17 Apr, 2013 [facility] [place] [facility] [address] [id number] [place] [address]- 6110 14 Apr, 2013 [facility] [place] [facility] [address] [id number] [place] [address]- 3262 14 Apr, 2013 [facility] [place] [facility] [address] [id number] [place] [address]- 8814 11 Apr, 2013 [facility] [place] [facility] [address] [id number] [place] [address]- 0353 10 Apr, 2013 [facility] [place] [facility] [address] [id number] [place] [address]- 0877 09 Apr, 2013 [facility] [place] [facility] [address] [id number] [place] [address]- 9389 07 Apr, 2013 [facility] [place] [facility] [address] [id number] [place] [address]- 9921 06 Apr, 2013 [facility] [place] [facility] [address] [id number] [place] [address]- 7200 06 Apr, 2013 [facility] [place] [facility] [address] [id number] [place] [address]- 4989 05 Apr, 2013 [facility] [place] [facility] [address] [id number] [place] [address]- 1471 Apr, [facility] [place] [facility] [address] [id number] [place] [address]- 1517 March, [facility] [place] [facility] [address] [id number] [place] [address]- 7028 March, [facility] [place] [facility] [address] [id number] [place] [address]- 3051 March, [facility] [place] [facility] [address] [id number] [place] [address]- 0490 March, [facility] [place] [facility] [address] [id number] [place] [address]- 6774 March, [facility] [place] [facility] [address] [id number] [place] [address]- 5322 March, [facility] [address] [id number] [place] [address]- 4134 March, [facility] [address] [id number] [place] [address]- 2384 Feb, [facility] [address] [id number] [place] [address]- 1013 Feb, [facility] [address] [id number] [place] [address]- 9475 27 Jan, 2013 [facility] [address] [id number] [place] [address]- 6248 18 Jan, 2013 [facility] [address] [id number] [place] [address]- 7588 15 Jan, 2013 [facility] [address] [id number] [place] [address]- 8618 14 Jan, 2013 [facility] [address] [id number] [place] [address]- 5024 13 Jan, 2013 [facility] [address] [id number] [place] [address]- 6724 12 Jan, 2013 [facility] [address] [id number] [place] [address]- 0654 11 Jan, 2013 [facility] [address] [id number] [place] [address]- 8866 09 Jan, 2013 [facility] [address] [id number] [place] [address]- 0930 08 Jan, 2013 [facility] [address] [id number] [place] [address]- 0060 07 Jan, 2013 [facility] [address] [id number] [place] [address]- 0126 06 Jan, 2013 [facility] [address] [id number] [place] [address]- 7970 Nov, [facility] [place] [facility] [address] [id number] [place] [address]- 7129 Oct, [facility] [place] [facility] [address] [id number] [place] [address]- 2276 Oct, [facility] [place] [facility] [address] [id number] [place] [address]- 8967 Oct, [facility] [place] [facility] [address] [id number] [place] [address]- 5246 Oct, [facility] [place] [facility] [address] [id number] [place] [address]- 1080 Sep, [facility] [place] [facility] [address] [id number] [place] [address]- 2598 Sep, [facility] [place] [facility] [address] [id number] [place] [address]- 4303 Sep, [facility] [place] [facility] [address] [id number] [place] [address]- 1139 Sep, [facility] [place] [facility] [address] [id number] [place] [address]- 3394 Sep, [facility] [place] [facility] [address] [id number] [place] [address]- 5693 Sep, [facility] [place] [facility] [address] [id number], [place] [address]- 1171 Sep, [facility] [place] [facility] [address] [id number], [place] [address]- 6650 Sep, [facility] [place] [facility] [address] [id number] [place] [address]- 6824 Sep, [facility] [place] [facility] [address] [id number], [place] [address]- 1330 Sep, [facility] [place] [facility] [address] [facility] [id number], [place] [address]- 2551 Sep, [facility] [place] [facility] [address] [id number], [place] [address]- 4557 Aug, [facility] [place] [facility] [address] [id number] [place] [address]- 7112 Aug, [facility] [place] [facility] [address] [id number] [place] [address]- 6626 Aug, [facility] [place] [facility] [address] [id number] [place] [address]- 5551 28 Jul, 2012 [facility] [place] [facility] [address] [id number] [place] [address]- 2039 25 Jul, 2012 [facility] [place] [facility] [address] [id number] [place] [address]- 7866 19 Jul, 2012 [facility] [place] [facility] [address] [id number] [place] [address]- 7163 17 Jul, 2012 [facility] [place] [facility] [address] [id number] [place] [address]- 0202 20 Jun, 2012 [facility] [place] [facility] [address] [id number] [place] [address]- 1916 16 Jun, 2012 [facility] [place] [facility] [address] [facility] [id number] [place] [address]- 4805 15 Jun, 2012 [facility] [place] [facility] [address] [facility] [id number] [place] [address]- 2981 15 Jun, 2012 [facility] [place] [facility] [address] [id number] [place] [address]- 7018 Jun, [facility] [place] [facility] [address] [id number] [place] [address]- 2548 March, [facility] [place] [facility] [address] [id number] [place] [address]- 9147 Feb, [facility] [place] [facility] [address] [id number] [place] [address]- 0399 Jan, [facility] [place] [facility] [address] [facility] [id number] [place] [address]- 1991 Jan, [facility] [place] [facility] [address] [id number] [place] [address]- 6749 22 Jan, 2012 [facility] [place] [facility] [address] [id number] [place] [address]- 2196 14 Jan, 2012 [facility] [place] [facility] [address] [id number] [place] [address]- 7276 14 Jan, 2012 [facility] [place] [facility] [address] [id number] [place] [address]- 6008 14 Jan, 2012 [facility] [place] [facility] [address] [id number] [place] [address]- 1750 28 Dec, 2011 [facility] [place] [facility] [address] [id number] [place] [address]- 4986 27 Dec, 2011 [facility] [place] [facility] [address] [id number] [place] [address]- 7935 23 Dec, 2011 [facility] [place] [facility] [address] [id number] [place] [address]- 5559 21 Dec, 2011 [facility] [place] [facility] [address] [id number] [place] [address]- 2933 20 Dec, 2011 [facility] [place] [facility] [address] [facility] [id number] [place] [address]- 5056 19 Dec, 2011 [facility] [place] [facility] [address] [facility] [id number] [place] [address]- 2612 17 Dec, 2011 [facility] [place] [facility] [address] [id number] [place] [address]- 3478 16 Dec, 2011 [facility] [place] [facility] [address] [id number] [place] [address]- 0049 31 Nov, 2011 [facility] [place] [facility] [address] [id number] [place] [address]- 5066 Oct, [facility] [place] [facility] [address] [id number] [place] [address]- 3676 18 Sep, 2011 [facility] [place] [facility] [address] [id number], [place] [address]- 8634 Sep, [facility] [address] [id number], [place] [address] Sep, [facility] [address] [id number], [place] [address]- 4900 Sep, [facility] [address] [id number], [place] [address]- 9042 Sep, [facility] [address] [id number], [place] [address]- 6045 Sep, [facility] [address] [facility] [id number], [place] [address] 0217 Jan, [facility] [address] [id number], [place] [address] 8805 Apr, IMMUNIZATIONS No Known Immunizations SOCIAL HISTORY Never Assessed REASON FOR VISIT F/UAkilah GR PLAN OF CARE Activity Details Follow Up 4 Weeks Reason: f/u VITAL SIGNS Height 66 in 2017-08-23 Weight 121.3 lbs 2017-08-23 Heart Rate 66 bpm 2017-08-23 Respiratory Rate 18 2017-08-23 BMI 19.58 kg/m2 2017-08-23 Blood pressure systolic 118 mmHg 2017-08-23 Blood pressure diastolic 68 mmHg 2017-08-23 MEDICATIONS Medication Instructions Dosage Frequency Start Date End Date Duration Status Sprintec 28 Active Percocet 10-325 MG Orally every 6 hrs 1 tablet as needed 6h Active Seroquel 100 MG Orally Once a day 1 tablet 24h Active Pristiq 25 MG Orally Once a day 1 tablet 24h Aug, 30 day(s) Active Valium 5 MG Orally - please fill after 04/12/17. three times a day 1 tablet as needed 8h Active Lamictal 100 mg Orally Once a day 1 tablet 24h 30 day(s) Active RESULTS No Results PROCEDURES [...] History Left ovary removed 12/2016 Hospitalization History [facility] Admission x4 2009 most recent admission Hospitalization History [facility]; overdose 2010 Hospitalization History child 11/29/2016
--- OUTSIDE RECORDS SUMMARY | 2018-04-27 18:52 | XMS REPORT ---
Author Author TOMASZ MARGARITA [facility] [address] Address [address] [place] [address] Care Team Providers Care Mailing Machine Assistant Name Role Phone TOMASZMARGARITA Unavailable PROBLEMS Type Condition ICD9-CM Code GDT96-DY Code Onset Dates Condition Status SNOMED Code Problem Generalized anxiety disorder F41.1 Active 87095615 Problem Acute non intractable tension-type headache G44.209 Active 724147373 Problem Acute right-sided low back pain with right-sided sciatica M54.41 Active 147967336 Problem Post traumatic stress disorder F43.10 Active 72974116 Problem Bipolar disorder, current episode mixed, moderate F31.62 Active 096554427 Problem Endometriosis N80.9 Active 199993486 Problem Borderline personality disorder F60.3 Active 58409421 ALLERGIES Substance Reaction Event Type Date Status Thioridazine HCl tachycardia Drug Allergy Oct, Active Pristiq Unknown Drug Allergy Oct, Active Penicillin V Potassium rash Drug Allergy Oct, Active Diclofenac Sodium nausea Drug Allergy Oct, Active Depakote fatigue Drug Allergy Oct, Active ENCOUNTERS Encounter Location Date Diagnosis [facility] [id number] [place] [address] 15819- 6946 May, [facility] [id number] [place] [address] 40858- 2377 Apr, Bipolar disorder, current episode mixed, moderate F31.62 ; Post traumatic stress disorder F43.10 and Borderline personality disorder F60.3 [facility] [id number] [place] [address] 17688 -5970 March, Abdominal pain R10.9 ; UTI symptoms R39.9 and Other microscopic hematuria R31.29 [facility] [id number] [place] [address] 23549- 8482 March, [facility] [id number] [place] [address] 75291- 0517 March, Bipolar disorder, current episode mixed, moderate F31.62 ; Post traumatic stress disorder F43.10 and Borderline personality disorder F60.3 [facility] [id number] [place] [address] 93493- 8617 Feb, Encounter for immunization Z23 [facility] [address] 62945- 4652 Feb, Bipolar disorder, current episode mixed, moderate F31.62 ; Post traumatic stress disorder F43.10 and Borderline personality disorder F60.3 [facility] [id number] [place] [address] 07375- 5936 Feb, Bipolar disorder, current episode mixed, moderate F31.62 ; Post traumatic stress disorder F43.10 ; Borderline personality disorder F60.3 and 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 [place] [id number] [place] [address] 93578- 6917 Jan, Encounter for immunization Z23 [facility] [id number] [place] [address] 46342- 4461 Jan, [facility] [id number] [place] [address] 23640- 8364 Jan, Bipolar disorder, current episode mixed, moderate F31.62 [facility] [id number] [place] [address] 77423 -5285 Jan, Lumbar back pain M54.5 [facility] [id number] [place] [address] 38265- 7151 Dec, Low back pain M54.5 [facility] [id number] [place] [address] 53775- 6361 Dec, Bipolar disorder, current episode mixed, moderate F31.62 [facility] [id number] [place] [address] 59070- 1533 Dec, Generalized anxiety disorder F41.1 and Bipolar disorder, current episode mixed, moderate F31.62 [facility] [id number] [place] [address] 34036 -5157 Nov, Acute non intractable tension-type headache G44.209 [facility] [address] 66008- 8088 Nov, Bipolar disorder, current episode mixed, moderate F31.62 ; Post traumatic stress disorder F43.10 and Borderline personality disorder F60.3 [facility] [id number] [place] [address] 28390- 2659 Nov, Bipolar disorder, current episode mixed, moderate F31.62 [facility] [id number] [place] [address] 05413 -5851 Nov, Abdominal pain R10.9 ; History of PCOS Z87.42 ; History of endometriosis Z87.42 and Pelvic pain R10.2 [facility] [id number] [place] [address] 96776- 7208 Nov, [facility] [id number] [place] [address] 10459 -4455 Oct, History of PCOS Z87.42 ; History of endometriosis Z87.42 and Pain R52 [facility] [id number] [place] [address] 00446- 8045 Oct, Bipolar disorder, current episode mixed, moderate F31.62 ; Post traumatic stress disorder F43.10 and Borderline personality disorder F60.3 [facility] [id number] [place] [address] 61089- 7601 Oct, Bipolar disorder, current episode mixed, moderate F31.62 [place] [address] 48616- 2211 Sep, Bipolar disorder, current episode mixed, moderate F31.62 ; Post traumatic stress disorder F43.10 ; Borderline personality disorder F60.3 and 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 [place] [id number] [place] [address] 01902- 5754 17 Sep, 2017 Bipolar disorder, current episode mixed, moderate F31.62 [facility] [id number] [place] [address] 83661 -8903 Sep, Endometriosis N80.9 and Acute right-sided low back pain with right-sided sciatica M54.41 [place] [id number] [place] [address] 83677- 2616 Aug, [facility] [id number] [place] [address] 22027- 9621 Aug, Bipolar disorder, current episode mixed, moderate F31.62 ; Post traumatic stress disorder F43.10 and Borderline personality disorder F60.3 [facility] [id number] [place] [address] 55833- 7838 Aug, Bipolar disorder, current episode mixed, moderate F31.62 ; Post traumatic stress disorder F43.10 and Borderline personality disorder F60.3 [place] [id number] [place] [address] 36053- 4313 13 Jul, 2017 Bipolar disorder, current episode mixed, moderate F31.62 ; Post traumatic stress disorder F43.10 and Borderline personality disorder F60.3 [facility] [id number] [place] [address] 96708 -7880 11 Jul, 2017 Pharyngitis, unspecified etiology J02.9 and Streptococcal pharyngitis J02.0 [place] [id number] [place] [address] 99911- 1330 16 Jun, 2017 Bipolar disorder, current episode mixed, moderate F31.62 ; Post traumatic stress disorder F43.10 and Borderline personality disorder F60.3 [place] [id number] [place] [address] 67388- 3347 May, [place] [id number] [place] [address] 22674- 4247 May, [place] [address] [address]- 0743 May, Bipolar disorder, current episode mixed, moderate F31.62 and Generalized anxiety disorder F41.1 [place] [id number] [place] [address] [address] March, Bipolar disorder, current episode mixed, moderate F31.62 and Generalized anxiety disorder F41.1 [place] [id number] [place] [address] 87355- 6695 March, Pelvic pain R10.2 [place] [id number] [place] [address] 84810- 7649 March, [place] [id number] [place] [address] 52651- 9352 Feb, Bipolar disorder, current episode mixed, moderate F31.62 and Generalized anxiety disorder F41.1 [place] [id number] [place] [address] 81431- 5796 Jan, [facility] [id number] [place] [address] 90045- 5517 Jan, Bipolar disorder, current episode mixed, moderate F31.62 [place] [id number] [place] [address] 35278- 3615 Jan, Bipolar disorder, current episode mixed, moderate F31.62 [place] [id number] [place] [address] 25100- 5694 Jan, Bilateral low back pain without sciatica M54.5 [facility] [address] [place] [address] [id number] Jan, Dental caries K02.9 and Dental examination Z01.20 [facility] [id number] [place] [address] [id number] 09 Jan, 2017 Encounter for dental examination and cleaning without abnormal findings Z01.20 [facility] [id number] [place] [address] 33926- 3158 Jan, Bipolar disorder, current episode mixed, moderate F31.62 and Generalized anxiety disorder F41.1 [facility] [id number] [place] [address] 57579- 1325 Dec, [facility] [id number] [place] [address] 57022- 2074 Dec, Bipolar disorder, current episode mixed, moderate F31.62 and Generalized anxiety disorder F41.1 [place] [id number] [place] [address] 14387- 1622 Dec, Other fatigue R53.83 and Orthostatic hypotension I95.1 [facility] [address] [id number] Nov, Dental examination Z01.20 [facility] [id number] [place] [address] 89013 -0680 Nov, Bronchitis J40 [place] [address] 31735- 6861 Oct, Generalized anxiety disorder F41.1 [place] [id number] [place] [address] 71842- 0512 Sep, Bipolar disorder, current episode mixed, moderate F31.62 and Generalized anxiety disorder F41.1 [place] [id number] [place] [address] 12816- 9994 02 Sep, 2016 Bipolar disorder, current episode mixed, moderate F31.62 and Generalized anxiety disorder F41.1 [facility] [id number] [place] [address] 82086 -3054 08 Jul, 2016 Upper respiratory tract infection, unspecified type J06.9 [facility] [id number] [place] [address] 81339- 0645 Jun, Bipolar disorder, current episode mixed, moderate F31.62 and Generalized anxiety disorder F41.1 [place] [id number] [place] [address] 12013- 9134 Apr, [facility] [address] [address]- 7583 Apr, Encounter for test, result positive Z32.01 [facility] [id number] [place] [address] 45453- 4825 March, [facility] [id number] [place] [address] 64277- 2056 March, Bipolar disorder, current episode mixed, moderate F31.62 and Generalized anxiety disorder F41.1 [facility] [address] [place] [address] 38653- 9060 March, Bipolar disorder, current episode mixed, moderate F31.62 and Generalized anxiety disorder F41.1 [facility] [id number] [place] [address] 32538- 7748 March, [facility] [id number] [place] [address] 11024- 1306 March, [facility] [id number] [place] [address] 49549- 4217 Feb, [facility] [id number] [place] [address] 67148- 2255 Feb, [facility] [id number] [place] [address] 63020- 0320 Feb, Bipolar disorder, current episode mixed, moderate F31.62 and Generalized anxiety disorder F41.1 [facility] [address] [address]- 3849 Jan, Abdominal pain R10.9 [facility] [id number] [place] [address] 40541- 9939 14 Jan, 2016 [facility] [address] [place] [address] 45062- 9619 29 Dec, 2015 Dental examination Z01.20 [facility] [address] [place] [address] 46696- 4736 Dec, Dental examination Z01.20 and Dental caries K02.9 [place] [address] [place] [address] 42572- 8396 15 Dec, 2015 Bipolar disorder, current episode mixed, moderate F31.62 and Generalized anxiety disorder F41.1 [place] [address] [place] [address] 31112- 1876 15 Dec, 2015 [place] [id number] [place] [address] 91289- 9267 Nov, Bipolar disorder, current episode mixed, moderate F31.62 ; Generalized anxiety disorder F41.1 and Seizure-like activity R56.9 [place] [id number] [place] [address] 49705- 0227 Oct, [place] [id number] [place] [address] 49708- 3193 Oct, Bipolar disorder, current episode mixed, moderate F31.62 [place] [id number] [place] [address] 28900- 4803 14 Oct, 2015 Well woman exam Z01.419 [...] Tobacco use Z72.0 and Hot flashes N95.1 [place] [id number] [place] [address] 33130- 9986 09 Oct, 2015 Seizure-like activity R56.9 and Irregular periods N92.6 [place] [address] [place] [address] 30172- 0330 07 Oct, 2015 Bipolar disorder, current episode mixed, moderate F31.62 ; Generalized anxiety disorder F41.1 and Underweight R63.6 [facility] [id number] [place] [address] 47932- 2467 Oct, [facility] [address] 22371- 6937 Oct, Generalized anxiety disorder F41.1 and Unspecified mood [ affective] disorder F39 [facility] [address] 07223 -7277 Oct, Back pain M54.9 and Anxiety F41.9 [facility] [address] 56818- 0490 Oct, [facility] [address] 77412 -9216 Sep, Arm pain, left M79.602 [facility] [address] 28279- 0844 Sep, [facility] [address] [id number] Sep, Dental examination Z01.20 and Dental caries K02.9 [facility] [address] 28569- 8247 Sep, Generalized anxiety disorder F41.1 and Unspecified episodic mood disorder F39 [facility] [id number] [place] [address] 72089- 5096 Sep, Bilateral low back pain without sciatica M54.5 and Seizure- like activity R56.9 [facility] [id number] [place] [address] 00956- 1665 Aug, [facility] [address] 98147- 7920 Aug, [facility] [id number] [place] [address] 77775- 7250 Aug, [facility] [address] 62743- 1247 Aug, Visual changes H53.9 and Bilateral low back pain without sciatica M54.5 [facility] [id number] [place] [address] 37238- 4397 Jul, [facility] [id number] [place] [address] 63416- 3399 Jun, Bipolar I disorder, most recent episode (or current) mixed, moderate 296.62 ; Generalized anxiety disorder 300.02 and High risk medication use V58.69 [facility] [id number] [place] [address] 95304- 1729 Jun, [facility] [address] 27789- 5786 May, [facility] [id number] [place] [address] 68955- 2568 May, Bipolar I disorder, most recent episode (or current) mixed, moderate 296.62 and Generalized anxiety disorder 300.02 [facility] [id number] [place] [address] [id number] May, Dental examination V72.2 [facility] [address] 17168- 5487 March, Bipolar I disorder, most recent episode (or current) mixed, moderate 296.62 and Generalized anxiety disorder 300.02 [facility] [id number] [place] [address] 44795- 0466 March, [facility] [id number] [place] [address] 87446- 9281 March, [facility] [id number] [place] [address] 10479- 8148 March, Underweight 783.22 ; Hand pain, right 729.5 and Reflux gastritis 535.40 [facility] [id number] [place] [address] 37839- 5079 Feb, [facility] [address] 91926- 2546 13 Feb, 2015 [facility] [place] [facility] [address] [id number] [place] [address]- 7898 18 Jan, 2015 [facility] [place] [facility] [address] [id number] [place] [address]- 1806 18 Jan, 2015 [facility] [place] [facility] [address] [id number] [place] [address]- 4631 16 Jan, 2015 [facility] [place] [facility] [address] [id number] [place] [address]- 7957 16 Jan, 2015 [facility] [place] [facility] [address] [id number] [place] [address]- 6217 Jan, [facility] [place] [facility] [address] [id number] [place] [address]- 1590 Jan, [facility] [place] [facility] [address] [id number] [place] [address]- 1747 Jan, [facility] [place] [facility] [address] [id number] [place] [address]- 5089 05 Jan, 2015 [facility] [place] [facility] [address] [id number] [place] [address]- 1915 Jan, [facility] [place] [facility] [address] [id number] [place] [address]- 4840 Jan, [facility] [place] [facility] [address] [id number] [place] [address]- 8344 Jan, [facility] [place] [facility] [address] [id number] [place] [address]- 4346 Jan, [facility] [place] [facility] [address] [id number] [place] [address]- 0034 Dec, [facility] [place] [facility] [address] [id number] [place] [address]- 2360 Dec, [facility] [place] [facility] [address] [id number] [place] [address]- 2250 Dec, [facility] [place] [facility] [address] [id number] [place] [address]- 5246 19 Dec, 2014 [facility] [place] [facility] [address] [id number] [place] [address]- 8722 18 Dec, 2014 [facility] [place] [facility] [address] [id number] [place] [address]- 2546 17 Dec, 2014 [facility] [place] [facility] [address] [id number] [place] [address]- 5432 17 Dec, 2014 [facility] [place] [facility] [address] [id number] [place] [address]- 3326 16 Dec, 2014 [facility] [place] [facility] [address] [id number] [place] [address]- 8586 16 Dec, 2014 [facility] [place] [facility] [address] [facility] [id number] [place] [address]- 6624 05 Dec, 2014 [facility] [place] [facility] [address] [facility] [id number] [place] [address]- 0322 05 Dec, 2014 [facility] [place] [facility] [address] [facility] [id number] [place] [address]- 8570 Dec, 2014 [facility] [place] [facility] [address] [facility] [id number] [place] [address]- 3605 05 Dec, 2014 [facility] [place] [facility] [address] [facility] [id number] [place] [address]- 0883 Dec, 2014 [facility] [place] [facility] [address] [facility] [id number] [place] [address]- 2549 Dec, 2014 [facility] [place] [facility] [address] [facility] [id number] [place] [address]- 3557 Dec, 2014 [facility] [place] [facility] [address] [facility] [id number] [place] [address]- 8564 04 Dec, 2014 [facility] [place] [facility] [address] [facility] [id number] [place] [address]- 7381 Dec, 2014 [facility] [place] [facility] [address] [facility] [id number] [place] [address]- 2546 Dec, [facility] [address] [id number] [place] [address]- 2546 Nov, [facility] [place] [facility] [address] [id number] [place] [address]- 2546 Nov, [facility] [address] [id number] [place] [address]- 2546 Nov, [facility] [place] [facility] [address] [id number] [place] [address]- 2546 Nov, [facility] [address] [id number] [place] [address]- 2546 Nov, [facility] [place] [facility] [address] [id number] [place] [address]- 2546 Nov, [facility] [address] [address] Nov, [facility] [address] [id number] [address]- 2546 Nov, [facility] [place] [facility] [address] [id number] [place] [address]- 2546 Nov, [facility] [address] [id number] Nov, [facility] [place] [facility] [address] [id number] [place] [address]- 2546 Nov, [facility] [place] [facility] [address] [id number], [place] [address] Nov, [facility] [place] [facility] [address] [id number] [place] [address] Oct, [facility] [place] [facility] [address] [id number] [place] [address] Oct, [facility] [place] [facility] [address] [id number] [place] [address] Oct, [facility] [place] [facility] [address] [id number] [place] [address] 30 Oct, 2014 [facility] [place] [facility] [address] [id number] [place] [address] Oct, [facility] [place] [facility] [address] [id number] [place] [address] Oct, [facility] [place] [facility] [address] [id number] [place] [address] Oct, [facility] [place] [facility] [address] [id number] [place] [address] Oct, [facility] [place] [facility] [address] [id number] [place] [address] Oct, [facility] [place] [facility] [address] [id number] [place] [address] Oct, [facility] [place] [facility] [address] [id number] [place] [address] Oct, [facility] [place] [facility] [address] [id number] [place] [address] Oct, [facility] [place] [facility] [address] [id number] [place] [address] Sep, [facility] [place] [facility] [address] [id number] [place] [address] Sep, [facility] [place] [facility] [address] [id number] [place] [address] Sep, [facility] [place] [facility] [address] [id number] [place] [address] Sep, [facility] [place] [facility] [address] [id number] [place] [address] Sep, [facility] [place] [facility] [address] [id number] [place] [address] Sep, [facility] [place] [facility] [address] [id number], [place] [address] Sep, [facility] [place] [facility] [address] [id number] [place] [address] Sep, [facility] [place] [facility] [address] [id number] [place] [address] Aug, [facility] [place] [facility] [address] [id number] [place] [address] 66[address] Aug, [facility] [place] [facility] [address] [id number] [place] [address] 2854 Aug, [facility] [place] [facility] [address] [id number] [place] [address]- 9031 Aug, [facility] [place] [facility] [address] [id number] [place] [address] 5961 Aug, [facility] [place] [facility] [address] [id number] [place] [address] 3426 Aug, [facility] [place] [facility] [address] [id number], [place] [address] Aug, [facility] [place] [facility] [address] [id number] [place] [address] 9274 Aug, [facility] [place] [facility] [address] [id number], [place] [address] Aug, [facility] [place] [facility] [address] [id number], [place] [address] 7879 Aug, [facility] [place] [facility] [address] [id number], [place] [address] 1636 Aug, [facility] [place] [facility] [address] [id number], [place] [address]79 Aug, [facility] [place] [facility] [address] [id number] [address] Aug, [facility] [place] [facility] [address] [id number] [place] [address]- 5813 Jul, [facility] [place] [facility] [address] [id number] [place] [address]- 5711 Jul, [facility] [place] [facility] [address] [id number] [place] [address]- 0930 Jul, [facility] [place] [facility] [address] [id number] [place] [address]- 7116 Jul, [facility] [place] [facility] [address] [id number] [place] [address]- 8760 Jun, [facility] [place] [facility] [address] [id number] [place] [address]- 5694 Jun, [facility] [place] [facility] [address] [id number] [place] [address]- 3106 Jun, [facility] [place] [facility] [address] [id number] [place] [address]- 0087 Jun, [facility] [place] [facility] [address] [id number] [place] [address]- 7644 Jun, [facility] [place] [facility] [address] [id number] [place] [address]- 3767 Jun, [facility] [place] [facility] [address] [id number] [place] [address]- 7513 May, [facility] [place] [facility] [address] [id number] [place] [address]- 1662 May, [facility] [place] [facility] [address] [id number] [place] [address]- 0341 May, [facility] [place] [facility] [address] [id number] [place] [address]- 2806 May, [facility] [place] [facility] [address] [id number] [place] [address]- 8442 Apr, [facility] [place] [facility] [address] [id number] [place] [address]- 2028 Apr, [facility] [place] [facility] [address] [id number] [place] [address]- 7284 March, [facility] [address] [id number] [place] [address]- 9372 March, [facility] [place] [facility] [address] [id number] [place] [address]- 0135 March, [facility] [place] [facility] [address] [id number] [place] [address]- 9191 March, [facility] [place] [facility] [address] [id number] [place] [address]- 5423 March, [facility] [place] [facility] [address] [id number] [place] [address]- 9173 March, [facility] [place] [facility] [address] [id number] [place] [address]- 4289 Feb, [facility] [place] [facility] [address] [id number] [place] [address]- 5842 Feb, [facility] [place] [facility] [address] [id number] [place] [address]- 0105 Dec, [facility] [place] [facility] [address] [id number] [place] [address]- 7777 Dec, [facility] [place] [facility] [address] [id number] [place] [address]- 2245 Nov, [facility] [place] [facility] [address] [id number] [place] [address]- 6587 Nov, [facility] [place] [facility] [address] [id number] [place] [address]- 1868 Sep, [facility] [place] [facility] [address] [id number] [place] [address]- 2914 Sep, [facility] [place] [facility] [address] [id number] [place] [address]- 2106 Sep, [facility] [place] [facility] [address] [id number] [place] [address]- 4845 Sep, [facility] [place] [facility] [address] [id number] [place] [address]- 0583 Sep, [facility] [address] [id number] [place] [address]- 4285 Sep, [facility] [place] [facility] [address] [id number] [place] [address]- 1573 Sep, [facility] [place] [facility] [address] [id number] [place] [address]- 8320 Aug, [facility] [place] [facility] [address] [id number] [place] [address]- 1214 Aug, [facility] [place] [facility] [address] [id number] [place] [address]- 0243 Aug, [facility] [place] [facility] [address] [id number] [place] [address]- 4146 Aug, [facility] [address] [id number] [place] [address]- 8595 Aug, [facility] [place] [facility] [address] [id number] [place] [address]- 0256 Aug, [facility] [place] [facility] [address] [id number] [place] [address]- 6030 Jul, [facility] [place] [facility] [address] [id number] [place] [address]- 4727 19 Jul, 2013 [facility] [place] [facility] [address] [id number] [place] [address]- 1763 16 Jul, 2013 [facility] [place] [facility] [address] [id number], [place] [address] 6[address] 13 Jul, 2013 [facility] [place] [facility] [address] [id number] [place] [address]- 2935 Jun, [facility] [place] [facility] [address] [id number] [place] [address]- 0851 Jun, [facility] [place] [facility] [address] [id number], [place] [address]- 8198 Jun, [facility] [place] [facility] [address] [id number] [place] [address]- 0532 Jun, [facility] [place] [facility] [address] [id number] [place] [address]- 3925 Jun, [facility] [place] [facility] [address] [id number] [place] [address]- 0114 Jun, [facility] [place] [facility] [address] [id number] [place] [address]- 5725 Jun, [facility] [place] [facility] [address] [id number] [place] [address]- 7669 May, [facility] [place] [facility] [address] [id number] [place] [address]- 5432 May, [facility] [place] [facility] [address] [id number] [place] [address]- 7326 May, [facility] [place] [facility] [address] [id number] [place] [address]- 4130 May, [facility] [place] [facility] [address] [id number] [place] [address]- 8015 May, [facility] [place] [facility] [address] [id number] [place] [address]- 5672 May, [facility] [place] [facility] [address] [id number] [place] [address]- 4357 May, [facility] [place] [facility] [address] [id number] [place] [address]- 3454 Apr, [facility] [place] [facility] [address] [id number] [place] [address]- 8400 Apr, [facility] [place] [facility] [address] [id number] [place] [address]- 7521 Apr, [facility] [place] [facility] [address] [id number] [place] [address]- 3257 Apr, [facility] [place] [facility] [address] [id number] [place] [address]- 2298 20 Apr, 2013 [facility] [place] [facility] [address] [id number] [place] [address]- 0640 18 Apr, 2013 [facility] [place] [facility] [address] [id number] [place] [address]- 3794 18 Apr, 2013 [facility] [place] [facility] [address] [facility] [id number] [place] [address]- 3349 18 Apr, 2013 [facility] [place] [facility] [address] [id number] [place] [address]- 0716 17 Apr, 2013 [facility] [place] [facility] [address] [id number] [place] [address]- 4495 14 Apr, 2013 [facility] [place] [facility] [address] [id number] [place] [address]- 7623 14 Apr, 2013 [facility] [place] [facility] [address] [id number] [place] [address]- 8471 11 Apr, 2013 [facility] [place] [facility] [address] [id number], [place] [address]- 7121 10 Apr, 2013 [facility] [place] [facility] [address] [id number], [place] [address]- 2084 09 Apr, 2013 [facility] [place] [facility] [address] [id number], [place] [address]- 9713 07 Apr, 2013 [facility] [place] [facility] [address] [id number], [place] [address]- 7295 06 Apr, 2013 [facility] [place] [facility] [address] [id number], [place] [address]- 1292 06 Apr, 2013 [facility] [place] [facility] [address] [id number], [place] [address]- 6181 05 Apr, 2013 [facility] [place] [facility] [address] [id number], [place] [address]- 0533 03 Apr, 2013 [facility] [place] [facility] [address] [id number], [place] [address]- 6841 March, [facility] [place] [facility] [address] [id number] [place] [address]- 8994 March, [facility] [address] [id number] [place] [address] March, [facility] [address] [id number] [place] [address]- 2569 March, [facility] [address] [id number] [place] [address]- 3564 March, [facility] [address] [id number] [place] [address]- 2757 March, [facility] [address] [id number] [place] [address]- 2445 March, [facility] [address] [id number] [place] [address]- 7579 Feb, [facility] [address] [id number] [place] [address]- 5279 Feb, [facility] [address] [id number] [place] [address]- 4052 27 Jan, 2013 [facility] [address] [id number] [place] [address]- 9019 18 Jan, 2013 [facility] [address] [id number] [place] [address]- 2397 15 Jan, 2013 [facility] [address] [id number] [place] [address]- 0198 14 Jan, 2013 [facility] [address] [id number] [place] [address]- 5542 13 Jan, 2013 [facility] [address] [id number] [place] [address]- 5433 12 Jan, 2013 [facility] [address] [id number] [place] [address]- 7372 11 Jan, 2013 [facility] [address] [id number] [place] [address]35 09 Jan, 2013 [facility] [address] [id number] [place] [address]- 1082 08 Jan, 2013 [facility] [place] [facility] [address] [id number] [place] [address]- 2752 07 Jan, 2013 [facility] [place] [facility] [address] [id number] [place] [address]- 0858 06 Jan, 2013 [facility] [place] [facility] [address] [id number] [place] [address]- 1680 17 Nov, 2012 [facility] [address] [id number] [place] [address]- 3409 Oct, [facility] [place] [facility] [address] [id number] [place] [address]- 5588 Oct, [facility] [address] [id number] [place] [address]- 3898 Oct, [facility] [address] [id number] [place] [address]- 9226 Oct, [facility] [place] [facility] [address] [id number] [place] [address]- 0659 30 Sep, 2012 [facility] [place] [facility] [address] [id number] [place] [address]- 5431 30 Sep, 2012 [facility] [place] [facility] [address] [id number] [place] [address]- 0683 Sep, [facility] [place] [facility] [address] [id number] [place] [address]- 1934 16 Sep, 2012 [facility] [place] [facility] [address] [id number] [place] [address]- 3821 16 Sep, 2012 [facility] [place] [facility] [address] [id number] [place] [address]- 1104 16 Sep, 2012 [facility] [place] [facility] [address] [id number] [place] [address]- 0567 16 Sep, 2012 [facility] [place] [facility] [address] [id number] [place] [address]- 9401 Sep, [facility] [place] [facility] [address] [id number] [place] [address]- 1880 Sep, [facility] [place] [facility] [address] [id number] [place] [address]- 2091 Sep, [facility] [place] [facility] [address] [id number] [place] [address]- 5356 Sep, [facility] [place] [facility] [address] [id number] [place] [address]- 9049 Aug, [facility] [place] [facility] [address] [id number] [place] [address]- 9065 Aug, [facility] [place] [facility] [address] [id number] [place] [address]- 6177 Aug, [facility] [place] [facility] [address] [id number] [place] [address]- 5050 28 Jul, 2012 [facility] [place] [facility] [address] [id number] [place] [address]- 6483 25 Jul, 2012 [facility] [place] [facility] [address] [id number] [place] [address]- 2527 19 Jul, 2012 [facility] [place] [facility] [address] [id number] [place] [address]- 2670 17 Jul, 2012 [facility] [place] [facility] [address] [id number] [place] [address]- 0548 20 Jun, 2012 [facility] [place] [facility] [address] [id number] [place] [address]- 3044 16 Jun, 2012 [facility] [place] [facility] [address] [id number] [place] [address]- 3451 15 Jun, 2012 [facility] [place] [facility] [address] [id number] [place] [address]- 8153 15 Jun, 2012 [facility] [place] [facility] [address] [id number] [place] [address]- 5151 13 Jun, 2012 [facility] [place] [facility] [address] [id number] [place] [address]- 0273 18 Mar, 2012 [facility] [address] [id number] [place] [address]- 2714 04 Feb, 2012 [facility] [place] [facility] [address] [id number] [place] [address]- 9264 28 Jan, 2012 [facility] [address] [id number] [place] [address]- 6497 27 Jan, 2012 [facility] [place] [facility] [address] [id number] [place] [address]- 1708 22 Jan, 2012 [facility] [address] [id number] [place] [address]- 9611 14 Jan, 2012 [facility] [address] [facility] [id number] [place] [address]- 2312 14 Jan, 2012 [facility] [address] [id number] [place] [address]- 3461 14 Jan, 2012 [facility] [address] [id number] [place] [address]- 6972 28 Dec, 2011 [facility] [id number] [place] [address]- 5313 27 Dec, 2011 [facility] [address] [id number] [place] [address]- 3056 23 Dec, 2011 [facility] [address] [facility] [id number] [place] [address]- 5486 21 Dec, 2011 [facility] [address] [id number] [place] [address]- 3487 20 Dec, 2011 [facility] [place] [facility] [address] [id number] [place] [address]- 1570 19 Dec, 2011 [facility] [place] [facility] [address] [id number] [place] [address]- 2506 17 Dec, 2011 [facility] [place] [facility] [id number], [place] [address]- 6971 Dec, [facility] [address] [id number], [place] [address]- 0761 Nov, [facility] [id number] 3390 Oct, [facility] [id number], [place] [address]- 8551 Sep, [facility] [id number] 3781 Sep, [facility] [id number], [place] [address]- 2776 Sep, [facility] [id number] 9687 Sep, [facility] [id number], [place] [address]- 0786 Sep, [facility] [id number], [place] [address]- 5358 Sep, [facility] [address] [id number], [place] [address]- 7498 Jan, [facility] [id number], [place] [address]- 3179 Apr, IMMUNIZATIONS No Known Immunizations SOCIAL HISTORY Never Assessed REASON FOR VISIT leslie/Lena GR PLAN OF CARE Activity Details Follow Up 4 Weeks Reason: f/u VITAL SIGNS Height 66 in 2017-11-07 Weight 121.6 lbs 2017-11-07 Heart Rate 78 bpm 2017-11-07 Respiratory Rate 18 2017-11-07 BMI 19.62 kg/m2 2017-11-07 Blood pressure systolic 98 mmHg 2017-11-07 Blood pressure diastolic 60 mmHg 2017-11-07 MEDICATIONS Medication Instructions Dosage Frequency Start Date End Date Duration Status Lamictal 150 MG Orally Once a day 1 tablet 24h Aug, Active Klonopin 0.5 MG Orally three times a day as needed 1 tablet Aug, Active Remeron 30 MG Orally Once a day at bedtime 1 tablet Oct, 30 day(s) Active Percocet 10-325 MG Orally every 6 hrs 1 tablet as needed 6h Sep, Not-Taking RESULTS No Results PROCEDURES No Known procedures [...]
--- OUTSIDE RECORDS SUMMARY | 2018-04-27 18:52 | XMS REPORT ---
Author Author KAREN Esparza Organization [facility] Address Unknown Care Team Providers Care Fabrication Lead Name Role Phone KAREN Esparza Unavailable PROBLEMS Type Condition ICD9-CM Code [id number] Code Onset Dates Condition Status SNOMED Code Problem Generalized anxiety disorder F41.1 Active 76904815 Problem Acute non intractable tension-type headache G44.209 Active 798390392 Problem Acute right-sided low back pain with right-sided sciatica M54.41 Active 133456926 Problem Post traumatic stress disorder F43.10 Active 14792305 Problem Bipolar disorder, current episode mixed, moderate F31.62 Active 101869681 Problem Endometriosis N80.9 Active 536704411 Problem Borderline personality disorder F60.3 Active 00903584 ALLERGIES Substance Reaction Event Type Date Status Thioridazine HCl tachycardia Drug Allergy May, Active Penicillin V Potassium rash Drug Allergy May, Active Diclofenac Sodium nausea Drug Allergy May, Active Depakote fatigue Drug Allergy May, Active ENCOUNTERS Encounter Location Date Diagnosis [facility] [id number] [place] [address] 00705- 2731 Feb, [facility] [id number] [place] [address] 86164- 5324 Feb, [facility] [id number] [place] [address] 77604- 1179 Jan, Encounter for immunization Z23 [facility] [address] 95751- 0440 Jan, [facility] [id number] [place] [address] 09032- 3374 Jan, Bipolar disorder, current episode mixed, moderate F31.62 [facility] [address] 89331 -8393 Jan, Lumbar back pain M54.5 [place] [id number] [place] [address] 38105- 5685 28 Dec, 2017 Low back pain M54.5 [facility] [id number] [place] [address] 54323- 8800 Dec, Bipolar disorder, current episode mixed, moderate F31.62 [place] [id number] [place] [address] 78318- 4370 Dec, Generalized anxiety disorder F41.1 and Bipolar disorder, current episode mixed, moderate F31.62 [facility] [place] [address] 59317 -7256 Nov, Acute non intractable tension-type headache G44.209 [place] [id number] [place] [address] 60139- 9196 Nov, Bipolar disorder, current episode mixed, moderate F31.62 ; Post traumatic stress disorder F43.10 and Borderline personality disorder F60.3 [place] [id number] [place] [address] 14018- 7396 Nov, Bipolar disorder, current episode mixed, moderate F31.62 [facility] [place] [id number] [place] [address] 01559 -5643 Nov, Abdominal pain R10.9 ; History of PCOS Z87.42 ; History of endometriosis Z87.42 and Pelvic pain R10.2 [place] [id number] [place] [address] 93313- 5704 Nov, [facility] [id number] [place] [address] 81318 -0252 Oct, History of PCOS Z87.42 ; History of endometriosis Z87.42 and Pain R52 [place] [id number] [place] [address] 20082- 4171 Oct, Bipolar disorder, current episode mixed, moderate F31.62 ; Post traumatic stress disorder F43.10 and Borderline personality disorder F60.3 [facility] [address] [address] 6505 Oct, Bipolar disorder, current episode mixed, moderate F31.62 [place] [id number] [place] [address] 79862- 9336 24 Sep, 2017 Bipolar disorder, current episode mixed, moderate F31.62 ; Post traumatic stress disorder F43.10 ; Borderline personality disorder F60.3 and Other fci (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 Z79.899 [place] [address] [place] [address] 70201- 1184 17 Sep, 2017 Bipolar disorder, current episode mixed, moderate F31.62 [facility] [id number] [place] [address] 23307 -2782 Sep, Endometriosis N80.9 and Acute right-sided low back pain with right-sided sciatica M54.41 [place] [id number] [place] [address] 34732- 0097 Aug, [place] [id number] [place] [address] 57759- 0721 Aug, Bipolar disorder, current episode mixed, moderate F31.62 ; Post traumatic stress disorder F43.10 and Borderline personality disorder F60.3 [place] [address] [address]- 0482 Aug, Bipolar disorder, current episode mixed, moderate F31.62 ; Post traumatic stress disorder F43.10 and Borderline personality disorder F60.3 [place] [address] [address]- 1454 13 Jul, 2017 Bipolar disorder, current episode mixed, moderate F31.62 ; Post traumatic stress disorder F43.10 and Borderline personality disorder F60.3 [facility] [id number] [place] [address] 42081 -3352 11 Jul, 2017 Pharyngitis, unspecified etiology J02.9 and Streptococcal pharyngitis J02.0 [facility] [address] [address]- 2272 Jun, Bipolar disorder, current episode mixed, moderate F31.62 ; Post traumatic stress disorder F43.10 and Borderline personality disorder F60.3 [place] [id number] [place] [address] 49459- 8470 May, [place] [id number] [place] [address] 36413- 7669 May, [place] [id number] [place] [address] 75055- 3358 May, Bipolar disorder, current episode mixed, moderate F31.62 and Generalized anxiety disorder F41.1 [place] [id number] [place] [address] 83591- 5459 March, Bipolar disorder, current episode mixed, moderate F31.62 and Generalized anxiety disorder F41.1 [place] [id number] [place] [address] 10758- 6004 March, Pelvic pain R10.2 [place] [id number] [place] [address] 46104- 6512 March, [place] [id number] [place] [address] 54645- 5972 Feb, Bipolar disorder, current episode mixed, moderate F31.62 and Generalized anxiety disorder F41.1 [place] [address] [place] [address] 73260- 7055 Jan, [facility] [address] [place] [address] 70311- 7688 Jan, Bipolar disorder, current episode mixed, moderate F31.62 [facility] [address] [place] [address] 39325- 1061 Jan, Bipolar disorder, current episode mixed, moderate F31.62 [place] [id number] [place] [address] 81735- 9904 Jan, Bilateral low back pain without sciatica M54.5 [facility] [address] [id number] Jan, Dental caries K02.9 and Dental examination Z01.20 [facility] [address] [address] 09 Jan, 2017 Encounter for dental examination and cleaning without abnormal findings Z01.20 [facility] [id number] [place] [address] 16435- 5206 06 Jan, 2017 Bipolar disorder, current episode mixed, moderate F31.62 and Generalized anxiety disorder F41.1 [facility] [id number] [place] [address] 66993- 3048 24 Dec, 2016 [facility] [id number] [place] [address] 29134- 9842 06 Dec, 2016 Bipolar disorder, current episode mixed, moderate F31.62 and Generalized anxiety disorder F41.1 [facility] [address] [place] [address] 86453- 9660 03 Dec, 2016 Other fatigue R53.83 and Orthostatic hypotension I95.1 [facility] [address] [place] [address] [id number] Nov, Dental examination Z01.20 [facility] IN [facility] [address] [address] 02 Nov, 2016 Bronchitis J40 [facility] [address] [place] [address] 18165- 3699 14 Oct, 2016 Generalized anxiety disorder F41.1 [facility] [id number] [place] [address] 79146- 5288 14 Sep, 2016 Bipolar disorder, current episode mixed, moderate F31.62 and Generalized anxiety disorder F41.1 [facility] [address] [place] [address] 71178- 2401 02 Sep, 2016 Bipolar disorder, current episode mixed, moderate F31.62 and Generalized anxiety disorder F41.1 [facility] [address] [address] -8797 08 Jul, 2016 Upper respiratory tract infection, unspecified type J06.9 [facility] [address] [address]- 4383 Jun, Bipolar disorder, current episode mixed, moderate F31.62 and Generalized anxiety disorder F41.1 [facility] [id number] [place] [address] 77989- 8070 Apr, [facility] [id number] [place] [address] 69390- 9776 Apr, Encounter for test, result positive Z32.01 [facility] [id number] [place] [address] 02194- 6625 March, [facility] [id number] [place] [address] 61998- 2996 March, Bipolar disorder, current episode mixed, moderate F31.62 and Generalized anxiety disorder F41.1 [facility] [address] [place] [address] 49077- 9004 March, Bipolar disorder, current episode mixed, moderate F31.62 and Generalized anxiety disorder F41.1 [facility] [address] [place] [address] 98225- 8689 March, [facility] [address] [address]- 0772 March, [facility] [address] [address]- 9904 Feb, [facility] [id number] [place] [address] 99290- 3634 Feb, [facility] [address] [address]- 6084 Feb, Bipolar disorder, current episode mixed, moderate F31.62 and Generalized anxiety disorder F41.1 [facility] [address] [place] [address] 22459- 3990 22 Jan, 2016 Abdominal pain R10.9 [place] [id number] [place] [address] 98365- 3783 14 Jan, 2016 [place] [id number] [place] [address] 68185- 5830 29 Dec, 2015 Dental examination Z01.20 [place] [id number] [place] [address] 87071- 6964 22 Dec, 2015 Dental examination Z01.20 and Dental caries K02.9 [place] [id number] [place] [address] 753281- 9642 15 Dec, 2015 Bipolar disorder, current episode mixed, moderate F31.62 and Generalized anxiety disorder F41.1 [place] [id number] [place] [address] 30604- 1507 Dec, [place] [id number] [place] [address] 08592- 5851 Nov, Bipolar disorder, current episode mixed, moderate F31.62 ; Generalized anxiety disorder F41.1 and Seizure-like activity R56.9 [place] [address] [place] [address] 26343- 6130 Oct, [place] [address] [place] [address] 01775- 6674 Oct, Bipolar disorder, current episode mixed, moderate F31.62 [place] [address] [place] [address] 41564- 6710 14 Oct, 2015 Well woman exam Z01.419 [...] Tobacco use Z72.0 and Hot flashes N95.1 [place] [address] 47700- 4044 09 Oct, 2015 Seizure-like activity R56.9 and Irregular periods N92.6 [place] [address] 27603- 2957 Oct, Bipolar disorder, current episode mixed, moderate F31.62 ; Generalized anxiety disorder F41.1 and Underweight R63.6 [place] [address] 45855- 8480 Oct, [place] [address] 62550- 2930 Oct, Generalized anxiety disorder F41.1 and Unspecified mood [ affective] disorder F39 [facility] [address] 37809 -1138 Oct, Back pain M54.9 and Anxiety F41.9 [place] [address] 23026- 9394 Oct, [facility] [place] [address] 16540 -7653 Sep, Arm pain, left M79.602 [place] [address] 75496- 3664 Sep, [facility] [address] [id number] Sep, Dental examination Z01.20 and Dental caries K02.9 [place] [address] 94211- 1115 Sep, Generalized anxiety disorder F41.1 and Unspecified episodic mood disorder F39 [place] [address] 88454- 7452 Sep, Bilateral low back pain without sciatica M54.5 and Seizure- like activity R56.9 [facility] [id number] [place] [address] 04682- 0905 Aug, [facility] [id number] [place] [address] 54278- 8214 Aug, [facility] [id number] [place] [address] 07100- 7170 Aug, [facility] [id number] [place] [address] 59572- 2007 Aug, Visual changes H53.9 and Bilateral low back pain without sciatica M54.5 [facility] [id number] [place] [address] 93033- 6492 Jul, [facility] [id number] [place] [address] 56153- 5331 Jun, Bipolar I disorder, most recent episode (or current) mixed, moderate 296.62 ; Generalized anxiety disorder 300.02 and High risk medication use V58.69 [facility] [id number] [place] [address] 20710- 5302 Jun, [facility] [id number] [place] [address] 90845- 9609 May, [facility] [address] [place] [address] 60610- 3207 May, Bipolar I disorder, most recent episode (or current) mixed, moderate 296.62 and Generalized anxiety disorder 300.02 [facility] [id number] [place] [address] [id number] May, Dental examination V72.2 [facility] [id number] [place] [address] 93279- 6613 March, Bipolar I disorder, most recent episode (or current) mixed, moderate 296.62 and Generalized anxiety disorder 300.02 [facility] [address] [place] [address] 27462- 4431 March, [facility] [address] [facility] [id number] [address]- 4029 March, [facility] [address] [address]- 6667 March, Underweight 783.22 ; Hand pain, right 729.5 and Reflux gastritis 535.40 [facility] [id number] [place] [address]- 5036 14 Feb, 2015 [facility] [address] [facility] [id number] [address]- 4675 Feb, [facility] [address] [place] [address], [place] [address]- 9247 18 Jan, 2015 [facility] [id number] [address]- 5549 18 Jan, 2015 [facility] [id number] [place] [address] 49622- 7251 16 Jan, 2015 [facility] [address] [address]- 3219 16 Jan, 2015 [facility] [address] [address]- 4967 Jan, [facility] [address] [address]- 9771 Jan, [facility] [address] [address]- 9163 05 Jan, 2015 [facility] [address] [address]- 8105 05 Jan, 2015 [facility] [id number] [address]- 0227 04 Jan, 2015 [facility] [address] [address]- 8336 04 Jan, 2015 [facility] [id number] [address]- 3876 Jan, [facility] [place] [facility] [address] [id number] [place] [address]- 9387 Jan, [facility] [place] [facility] [address] [id number] [place] [address]- 7222 20 Dec, 2014 [facility] [place] [facility] [address] [facility] [id number] [place] [address]- 5939 20 Dec, 2014 [facility] [place] [facility] [address] [facility] [id number] [place] [address]- 6839 19 Dec, 2014 [facility] [place] [facility] [address] [id number] [place] [address]- 5779 19 Dec, 2014 [facility] [place] [facility] [address] [facility] [id number] [place] [address]- 6034 18 Dec, 2014 [facility] [place] [facility] [address] [facility] [id number] [place] [address]- 9126 17 Dec, 2014 [facility] [place] [facility] [address] [facility] [id number] [place] [address]- 2615 17 Dec, 2014 [facility] [place] [facility] [address] [facility] [id number] [place] [address]- 9129 16 Dec, 2014 [facility] [place] [facility] [address] [facility] [id number] [place] [address]- 4464 16 Dec, 2014 [facility] [place] [facility] [address] [facility] [id number] [place] [address]- 9682 05 Dec, 2014 [facility] [place] [facility] [address] [facility] [id number] [address]- 2983 05 Dec, 2014 [facility] [place] [facility] [address] [facility] [id number] [place] [address]- 6392 05 Dec, 2014 [facility] [place] [facility] [address] [facility] [id number] [place] [address]- 5134 05 Dec, 2014 [facility] [place] [facility] [address] [facility] [id number] [place] [address]- 8632 04 Dec, 2014 [facility] [place] [facility] [address] [facility] [id number] [place] [address]- 2594 Dec, 2014 [facility] [place] [facility] [address] [id number] [place] [address]- 8172 Dec, [facility] [place] [facility] [address] [id number] [place] [address]- 5946 Dec, [facility] [place] [facility] [address] [id number] [place] [address]- 0546 Dec, [facility] [place] [facility] [address] [id number] [place] [address]- 2984 Dec, [facility] [place] [facility] [address] [id number] [place] [address]- 0739 Nov, [facility] [place] [facility] [address] [id number] [place] [address]- 6419 Nov, [facility] [place] [facility] [address] [id number] [place] [address]- 8842 Nov, [facility] [place] [facility] [address] [id number] [place] [address]- 8204 Nov, [facility] [place] [facility] [address] [id number] [place] [address]- 4698 Nov, [facility] [place] [facility] [address] [id number] [place] [address]- 1319 Nov, [facility] [place] [facility] [address] [id number] [id number] Nov, [facility] [place] [facility] [address] [id number] [address]- 5578 Nov, [facility] [place] [facility] [address] [id number] [place] [address]- 8910 Nov, [facility] [place] [facility] [address] [id number] [place] [id number] Nov, [facility] [place] [facility] [address] [id number] [place] [address]- 5826 Nov, [facility] [place] [facility] [address] [id number] [place] [address]- 2141 Nov, [facility] [place] [facility] [address] [id number] [place] [address]- 8884 Oct, [facility] [place] [facility] [address] [id number] [place] 8269 Oct, [facility] [place] [facility] [address] [id number] [place] [address]- 3611 Oct, [facility] [place] [facility] [address] [id number] [place] [address]- 3335 Oct, [facility] [place] [facility] [address] [id number] [place] [address]- 8447 Oct, [facility] [place] [facility] [address] [id number] [place] [address]- 3188 Oct, [facility] [place] [facility] [address] [id number] [place] [address]- 7752 Oct, [facility] [place] [facility] [address] [id number] [place] [address]- 0850 Oct, [facility] [place] [facility] [address] [id number] [place] [address]- 7670 Oct, [facility] [place] [facility] [address] [id number] [place] [address]- 8483 Oct, [facility] [place] [facility] [address] [id number] [place] [address]- 3098 Oct, [facility] [place] [facility] [address] [id number] [place] [address] [address] Oct, [facility] [place] [facility] [address] [id number] [place] [address] Sep, [facility] [place] [facility] [address] [id number] [place] [address] Sep, [facility] [place] [facility] [address] [id number] [address] Sep, [facility] [place] [facility] [address] [id number] [place] [address] Sep, [facility] [place] [facility] [address] [id number] [place] [address] Sep, [facility] [place] [facility] [address] [facility] [id number] [place] [address] Sep, [facility] [place] [facility] [address] [id number] [place] [address] Sep, [facility] [place] [facility] [address] [id number] [place] [address] Sep, [facility] [place] [facility] [address] [id number] [place] [address] Aug, [facility] [place] [facility] [address] [id number] [place] [address] Aug, [facility] [place] [facility] [address] [id number] [place] [address] Aug, [facility] [place] [facility] [address] [facility] [id number] [place] [address]- [address] Aug, [facility] [place] [facility] [address] [facility] [id number] [address] Aug, [facility] [place] [facility] [address] [id number] [address] Aug, [facility] [place] [facility] [address] [id number] [address] Aug, [facility] [place] [facility] [address] [id number] [address] Aug, [facility] [place] [facility] [address] [facility] [id number] [address] Aug, [facility] [place] [facility] [address] [facility] [id number] [address] Aug, [facility] [place] [facility] [address] [id number] [place] [address] Aug, [facility] [place] [facility] [address] [id number] [place] [address] Aug, [facility] [place] [facility] [address] [id number] [place] [address] Aug, [facility] [place] [facility] [address] [id number] [place] [address] Jul, [facility] [place] [facility] [address] [id number] [place] [address] Jul, [facility] [place] [facility] [address] [id number] [place] [address] Jul, [facility] [place] [facility] [address] [id number] [place] [address] Jul, [facility] [place] [facility] [address] [id number] [place] [address] Jun, [facility] [place] [facility] [address] [id number] [place] [address] Jun, [facility] [place] [facility] [address] [id number] [place] [address] Jun, [facility] [place] [facility] [address] [id number] [place] [address] Jun, [facility] [place] [facility] [address] [id number] [place] [address] Jun, [facility] [place] [facility] [address] [id number] [place] [address] Jun, [facility] [place] [facility] [address] [id number] [place] [address] May, [facility] [place] [facility] [address] [id number] [place] [address] 8866 May, [facility] [place] [facility] [address] [id number] [place] [address] May, [facility] [place] [facility] [address] [id number] [place] [address]- 7186 May, [facility] [place] [facility] [address] [id number] [place] [address] 1400 Apr, [facility] [place] [facility] [address] [id number] [place] [address] 6852 Apr, [facility] [place] [facility] [address] [id number] [place] [address] 59[address] March, [facility] [place] [facility] [address] [id number] [place] [address]- 5728 March, [facility] [place] [facility] [address] [id number] [place] [address] 8747 March, [facility] [place] [facility] [address] [id number] [place] [address] 6150 March, [facility] [place] [facility] [address] [id number] [place] [address] 9008 March, [facility] [place] [facility] [address] [id number] [place] [address]- 2227 March, [facility] [place] [facility] [address] [id number] [place] [address]- 5798 Feb, [facility] [place] [facility] [address] [id number] [place] [address]- 7921 Feb, [facility] [place] [facility] [address] [id number] [place] [address]- 1820 Dec, [facility] [place] [facility] [address] [id number] [place] [address] Dec, [facility] [place] [facility] [address] [id number] [place] [address]- 5481 Nov, [facility] [place] [facility] [address] [id number] [place] [address]- 8645 Nov, [facility] [place] [facility] [address] [id number] [place] [address]- 3494 14 Sep, 2013 [facility] [address] [id number] [place] [address]- 0990 14 Sep, 2013 [facility] [place] [facility] [address] [id number] [place] [address] 06 Sep, 2013 [facility] [address] [id number] [place] [address]- 2385 06 Sep, 2013 [facility] [place] [facility] [address] [id number] [place] [address]- 4227 05 Sep, 2013 [facility] [address] [id number] [place] [address]- 8882 Sep, [facility] [place] [facility] [address] [id number] [place] [address]- 9384 Sep, [facility] [address] [id number] [place] [address]- 1074 Aug, [facility] [address] [id number] [place] [address]- 5136 30 Aug, 2013 [facility] [place] [facility] [address] [id number] [place] [address]- 6913 Aug, [facility] [address] [id number] [place] [address]- 3769 Aug, [facility] [place] [facility] [address] [id number] [place] [address]- 7488 Aug, [facility] [place] [facility] [address] [id number] [place] [address]- 4182 Aug, [facility] [place] [facility] [address] [id number] [place] [address]- 5367 19 Jul, 2013 [facility] [place] [facility] [address] [id number] [place] [address]- 3657 19 Jul, 2013 [facility] [place] [facility] [address] [id number] [place] [address]- 4149 16 Jul, 2013 [facility] [place] [facility] [address] [id number] [place] [address]- 8150 Jul, [facility] [place] [facility] [address] [id number] [place] [address]- 1746 Jun, [facility] [place] [facility] [address] [id number] [place] [address]- 6046 Jun, [facility] [place] [facility] [address] [id number] [place] [address]- 9574 Jun, [facility] [place] [facility] [address] [id number] [place] [address]- [address]284 Jun, [facility] [place] [facility] [address] [id number] [place] [address]- 8097 Jun, [facility] [place] [facility] [address] [id number] [place] [address]- 7614 Jun, [facility] [place] [facility] [address] [id number] [place] [address]- 6541 Jun, [facility] [place] [facility] [address] [id number] [place] [address] 1501 May, [facility] [place] [facility] [address] [id number] [place] [address]- 2711 May, [facility] [place] [facility] [address] [id number] [place] [address]- 4544 May, [facility] [place] [facility] [address] [id number] [place] [address]- 0549 May, [facility] [place] [facility] [address] [id number] [place] [address]- 1544 May, [facility] [place] [facility] [address] [id number] [place] [address]- 8578 May, [facility] [place] [facility] [address] [id number] [place] [address]- 8957 May, [facility] [place] [facility] [address] [id number] [address] 28 Apr, 2013 [facility] [place] [facility] [address] [id number] [place] [address]- 9572 27 Apr, 2013 [facility] [place] [facility] [address] [id number] [place] [address]- 2532 27 Apr, 2013 [facility] [place] [facility] [address] [id number] [place] [address]- 4256 26 Apr, 2013 [facility] [place] [facility] [address] [id number] [place] [address]- 7250 20 Apr, 2013 [facility] [place] [facility] [address] [id number] [place] [address]- 2426 18 Apr, 2013 [facility] [place] [facility] [address] [id number] [place] [address]- 5180 18 Apr, 2013 [facility] [place] [facility] [address] [id number] [place] [address]- 3321 18 Apr, 2013 [facility] [place] [facility] [address] [id number] [place] [address]- 4625 17 Apr, 2013 [facility] [place] [facility] [address] [id number] [place] [address]- 5873 14 Apr, 2013 [facility] [place] [facility] [address] [id number] [place] [address]- 1628 14 Apr, 2013 [facility] [place] [facility] [address] [id number] [address] 5107 11 Apr, 2013 [facility] [place] [facility] [address] [id number] [place] [address]- 5589 10 Apr, 2013 [facility] [place] [facility] [address] [id number] [place] [address]- 5370 09 Apr, 2013 [facility] [place] [facility] [address] [id number] [place] [address]- 1298 07 Apr, 2013 [facility] [place] [facility] [address] [id number] [place] [address]- 1330 06 Apr, 2013 [facility] [place] [facility] [address] [id number] [place] [address]- 7053 Apr, [facility] [address] [id number] [place] [address]- 4987 Apr, [facility] [address] [id number] [place] [address] 2546 Apr, [facility] [address] [id number] [place] [address]- 7067 March, [facility] [address] [id number] [place] [address]- 9786 March, [facility] [address] [id number] [place] [address]- 0348 March, [facility] [address] [id number] [place] [address]- 3097 March, [facility] [address] [id number] [place] [address]- 9125 March, [facility] [address] [id number] [place] [address]- 1058 March, [facility] [address] [id number] [place] [address]- 3619 March, [facility] [address] [id number] [place] [address]- 7511 Feb, [facility] [address] [id number] [place] [address]- 4938 Feb, [facility] [address] [id number] [place] [address]- 6434 27 Jan, 2013 [facility] [address] [id number] [place] [address]- 0201 18 Jan, 2013 [facility] [address] [id number] [place] [address]- 2606 15 Jan, 2013 [facility] [address] [id number] [place] [address]- 0870 14 Jan, 2013 [facility] [address] [id number] [place] [address]- 7361 13 Jan, 2013 [facility] [place] [facility] [address] [id number] [place] [address]- 2307 12 Jan, 2013 [facility] [place] [facility] [address] [id number] [place] [address]- 0124 11 Jan, 2013 [facility] [place] [facility] [address] [id number] [place] [address]- 1095 09 Jan, 2013 [facility] [place] [facility] [address] [id number] [place] [address]- 4636 08 Jan, 2013 [facility] [place] [facility] [address] [id number] [place] [address]- 5894 07 Jan, 2013 [facility] [place] [facility] [address] [id number] [place] [address]- 0222 06 Jan, 2013 [facility] [place] [facility] [address] [id number] [place] [address]- 1041 17 Nov, 2012 [facility] [place] [facility] [address] [id number] [place] [address]- 4880 Oct, [facility] [place] [facility] [address] [id number] [place] [address]- 7161 Oct, [facility] [place] [facility] [address] [id number] [place] [address]- 6283 Oct, [facility] [place] [facility] [address] [id number] [place] [address]- 7303 Oct, [facility] [place] [facility] [address] [id number] [place] [address]- 1394 Sep, [facility] [place] [facility] [address] [id number] [place] [address]- 7568 Sep, [facility] [place] [facility] [address] [id number] [place] [address]- 4458 Sep, [facility] [place] [facility] [address] [id number] [place] [address]- 6275 16 Sep, 2012 [facility] [place] [facility] [address] [id number] [place] [address]- 5339 16 Sep, 2012 [facility] [place] [facility] [address] [id number] [place] [address]64 16 Sep, 2012 [facility] [place] [facility] [address] [id number] [place] [address]- 8222 Sep, [facility] [place] [facility] [address] [id number] [place] [address]- 6080 Sep, [facility] [place] [facility] [address] [id number] [place] [address]- 8232 Sep, [facility] [place] [facility] [address] [id number] [place] [address]- 3003 Sep, [facility] [place] [facility] [address] [id number] [place] [address]- 1736 Sep, [facility] [place] [facility] [address] [id number] [place] [address]- 6384 Aug, [facility] [place] [facility] [address] [id number] [place] [address]- 3172 Aug, [facility] [place] [facility] [address] [facility] [id number] [place] [address]- 4057 Aug, [facility] [place] [facility] [address] [id number] [place] [address]- 0907 28 Jul, 2012 [facility] [place] [facility] [address] [id number] [place] [address]- 9222 25 Jul, 2012 [facility] [place] [facility] [address] [id number] [place] [address]- 6890 19 Jul, 2012 [facility] [place] [facility] [address] [id number] [place] [address]- 0375 17 Jul, 2012 [facility] [place] [facility] [address] [facility] [id number] [place] [address]- 0190 Jun, [facility] [place] [facility] [address] [id number] [place] [address]- 7302 16 Jun, 2012 [facility] [place] [facility] [address] [id number] [place] [address]- 1098 Jun, [facility] [place] [facility] [address] [id number] [place] [address]- 6929 15 Jun, 2012 [facility] [place] [facility] [address] [id number] [place] [address]- 7519 13 Jun, 2012 [facility] [place] [facility] [address] [id number] [place] [address]- 1566 March, [facility] [place] [facility] [address] [id number] [place] [address]- 7518 04 Feb, 2012 [facility] [place] [facility] [address] [id number] [place] [address]- 9899 Jan, [facility] [place] [facility] [address] [id number] [place] [address]- 5352 Jan, [facility] [place] [facility] [address] [id number] [place] [address]- 7546 Jan, [facility] [place] [facility] [address] [id number] [place] [address]- 4543 14 Jan, 2012 [facility] [place] [facility] [address] [id number] [place] [address]- 5405 14 Jan, 2012 [facility] [place] [facility] [address] [id number] [place] [address]- 9622 14 Jan, 2012 [facility] [place] [facility] [address] [id number] [place] [address]- 0333 28 Dec, 2011 [facility] [place] [facility] [address] [id number] [place] [address]- 5637 27 Dec, 2011 [facility] [place] [facility] [address] [id number] [place] [address]- 3101 23 Dec, 2011 [facility] [place] [facility] [address] [id number] [address] 4[address] Dec, [facility] [id number] [address] 8019 Dec, [facility] [address] [id number] [address]- 3182 19 Dec, 2011 [facility] [id number] [address]- 3999 17 Dec, 2011 [facility] [id number] [address]- 4422 16 Dec, 2011 [facility] [id number] [address] Nov, [facility] [id number] [address]- 1274 Oct, [facility] [id number] [address]- 0587 18 Sep, 2011 [facility] [id number] [address]- 8095 18 Sep, 2011 [facility] [id number] [address]- 8845 Sep, [facility] [id number] [address]- 5781 Sep, [facility] [id number] [address]- 9116 07 Sep, 2011 [facility] [address] [id number] [address]- 7399 04 Sep, 2011 [facility] [id number] [address]- 0128 14 Jan, 2011 [facility] [id number] [address] 17 Apr, 2010 IMMUNIZATIONS No Known Immunizations SOCIAL HISTORY Never Assessed REASON FOR VISIT LISANDRO nelson/caitlyn Carter MA PLAN OF CARE Activity Details Follow Up 3 Months Reason: VITAL SIGNS Height 66 in 2017-05-29 Weight 118.2 lbs 2017-05-29 Heart Rate 84 bpm 2017-05-29 Respiratory Rate 18 2017-05-29 BMI 19.08 kg/m2 2017-05-29 Blood pressure systolic 116 mmHg 2017-05-29 Blood pressure diastolic 64 mmHg 2017-05-29 MEDICATIONS Medication Instructions Dosage Frequency Start Date End Date Duration Status BuPROPion HCl ER (SR) 100 MG Orally Twice a day 1 tablet 12h May, 30 day(s) Active Valium 5 MG Orally - please fill after 04/12/17. three times a day 1 tablet as needed 8h March, 30 days Active Seroquel 100 MG Orally Once a day 1 tablet 24h May, 30 day(s) Active RESULTS No Results PROCEDURES [...]
--- OUTSIDE RECORDS SUMMARY | 2018-04-27 18:54 | XMS REPORT ---
Author Author KAREN Esparza Organization [facility] Address Unknown Care Team Providers Care Carpenter Packing Name Role Phone KAREN Esparza Unavailable PROBLEMS Type Condition ICD9-CM Code ZTU03-JT Code Onset Dates Condition Status SNOMED Code Problem Generalized anxiety disorder F41.1 Active 14477728 Problem Acute non intractable tension-type headache G44.209 Active 335682805 Problem Acute right-sided low back pain with right-sided sciatica M54.41 Active 972280079 Problem Post traumatic stress disorder F43.10 Active 87389629 Problem Bipolar disorder, current episode mixed, moderate F31.62 Active 608942362 Problem Endometriosis N80.9 Active 707314072 Problem Borderline personality disorder F60.3 Active [id number] ALLERGIES No Information ENCOUNTERS Encounter Location Date Diagnosis [facility] [address] [address]- [address] Feb, [facility] [address] 61818- 9516 Feb, [facility] [address] 09707- 5598 Jan, Encounter for immunization Z23 [facility] [address] 58424- 0917 Jan, [facility] [id number] [place] [address] 41493- 9636 Jan, Bipolar disorder, current episode mixed, moderate F31.62 [facility] [address] 80[address] -6488 10 Jan, 2018 Lumbar back pain M54.5 [facility] [address] 79525- 1900 28 Dec, 2017 Low back pain M54.5 [facility] [id number] [place] [address] 28177- 0550 13 Dec, 2017 Bipolar disorder, current episode mixed, moderate F31.62 [facility] [id number] [place] [address] 06439- 0531 13 Dec, 2017 Generalized anxiety disorder F41.1 and Bipolar disorder, current episode mixed, moderate F31.62 [facility] [address] [address] Nov, Acute non intractable tension-type headache G44.209 [place] [address] 856441- 0504 Nov, Bipolar disorder, current episode mixed, moderate F31.62 ; Post traumatic stress disorder F43.10 and Borderline personality disorder F60.3 [place] [address] 64729- 3750 Nov, Bipolar disorder, current episode mixed, moderate F31.62 [facility] [place] [id number] [place] [address] 95712 -9514 Nov, Abdominal pain R10.9 ; History of PCOS Z87.42 ; History of endometriosis Z87.42 and Pelvic pain R10.2 [place] [id number] [place] [address] 99278- 4208 Nov, [facility] [address] [address] Oct, History of PCOS Z87.42 ; History of endometriosis Z87.42 and Pain R52 [place] [address] 51785- 9498 Oct, Bipolar disorder, current episode mixed, moderate F31.62 ; Post traumatic stress disorder F43.10 and Borderline personality disorder F60.3 [place] [id number] [place] [address] 08823- 2014 Oct, Bipolar disorder, current episode mixed, moderate F31.62 [facility] [address] [place] [address] 60291- 4221 Sep, Bipolar disorder, current episode mixed, moderate F31.62 ; Post traumatic stress disorder F43.10 ; Borderline personality disorder F60.3 and Other fpc (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 Z79.899 [facility] [id number] [place] [address] 34712- 0842 Sep, Bipolar disorder, current episode mixed, moderate F31.62 [facility] [id number] [place] [address] 49309 -4269 Sep, Endometriosis N80.9 and Acute right-sided low back pain with right-sided sciatica M54.41 [place] [id number] [place] [address] 98125- 5304 Aug, [place] [address] 78161- 9312 Aug, Bipolar disorder, current episode mixed, moderate F31.62 ; Post traumatic stress disorder F43.10 and Borderline personality disorder F60.3 [place] [id number] [place] [address] 78211- 5182 11 Aug, 2017 Bipolar disorder, current episode mixed, moderate F31.62 ; Post traumatic stress disorder F43.10 and Borderline personality disorder F60.3 [place] [id number] [place] [address] 69693- 6318 13 Jul, 2017 Bipolar disorder, current episode mixed, moderate F31.62 ; Post traumatic stress disorder F43.10 and Borderline personality disorder F60.3 [facility] [address] [place] [address] 29385 -2849 11 Jul, 2017 Pharyngitis, unspecified etiology J02.9 and Streptococcal pharyngitis J02.0 [facility] [address] [place] [address] 72299- 1014 16 Jun, 2017 Bipolar disorder, current episode mixed, moderate F31.62 ; Post traumatic stress disorder F43.10 and Borderline personality disorder F60.3 [facility] [address] [place] [address] 21688- 3306 May, [facility] [id number] [place] [address] 45692- 3350 May, [facility] [id number] [place] [address] 05735- 7748 May, Bipolar disorder, current episode mixed, moderate F31.62 and Generalized anxiety disorder F41.1 [facility] [id number] [place] [address] 22458- 2459 March, Bipolar disorder, current episode mixed, moderate F31.62 and Generalized anxiety disorder F41.1 [facility] [id number] [place] [address] 67395- 2257 March, Pelvic pain R10.2 [facility] [id number] [place] [address] 88728- 8568 March, [facility] [id number] [place] [address] 04910- 5820 Feb, Bipolar disorder, current episode mixed, moderate F31.62 and Generalized anxiety disorder F41.1 [facility] [address] [place] [address] 18614- 5514 Jan, [facility] [id number] [place] [address] 28255- 5079 Jan, Bipolar disorder, current episode mixed, moderate F31.62 [facility] [address] [place] [address] 23495- 7722 Jan, Bipolar disorder, current episode mixed, moderate F31.62 [facility] [id number] [place] [address] 02787- 2533 Jan, Bilateral low back pain without sciatica M54.5 [facility] [address] [place] [address] [id number] 21 Mar, 2017 Dental caries K02.9 and Dental examination Z01.20 [facility] [address] [address] 09 Jan, 2017 Encounter for dental examination and cleaning without abnormal findings Z01.20 [facility] [address] [place] [address] 049978- 8191 06 Jan, 2017 Bipolar disorder, current episode mixed, moderate F31.62 and Generalized anxiety disorder F41.1 [facility] [id number] [place] [address] 01812- 4156 24 Dec, 2016 [facility] [id number] [place] [address] 77412- 0002 06 Dec, 2016 Bipolar disorder, current episode mixed, moderate F31.62 and Generalized anxiety disorder F41.1 [facility] [address] [place] [address] 31703- 3441 03 Dec, 2016 Other fatigue R53.83 and Orthostatic hypotension I95.1 [facility] [address] [place] [address] [phone] Nov, Dental examination Z01.20 [facility] [id number] [place] [address] 79874 -9595 02 Nov, 2016 Bronchitis J40 [facility] [id number] [place] [address] 17869- 6236 14 Oct, 2016 Generalized anxiety disorder F41.1 [facility] [id number] [place] [address] 39496- 3226 14 Sep, 2016 Bipolar disorder, current episode mixed, moderate F31.62 and Generalized anxiety disorder F41.1 [facility] [id number] [place] [address] 14945- 2367 02 Sep, 2016 Bipolar disorder, current episode mixed, moderate F31.62 and Generalized anxiety disorder F41.1 [facility] [id number] [place] [address] 41342 -4588 08 Jul, 2016 Upper respiratory tract infection, unspecified type J06.9 [facility] [address] [place] [address] 52712- 4186 Jun, Bipolar disorder, current episode mixed, moderate F31.62 and Generalized anxiety disorder F41.1 [facility] [id number] [place] [address] 07174- 3759 Apr, [facility] [id number] [place] [address] 14992- 9015 Apr, Encounter for test, result positive Z32.01 [facility] [id number] [place] [address] 68642- 4473 March, [facility] [id number] [place] [address] 31299- 8670 March, Bipolar disorder, current episode mixed, moderate F31.62 and Generalized anxiety disorder F41.1 [place] [id number] [place] [address] 44138- 2082 March, Bipolar disorder, current episode mixed, moderate F31.62 and Generalized anxiety disorder F41.1 [facility] [id number] [place] [address] 70529- 3665 March, [facility] [id number] [place] [address] 51792- 6725 March, [facility] [id number] [place] [address] 57277- 7959 Feb, [facility] [id number] [place] [address] 31862- 2575 Feb, [facility] [id number] [place] [address] 96438- 6756 Feb, Bipolar disorder, current episode mixed, moderate F31.62 and Generalized anxiety disorder F41.1 [facility] [id number] [place] [address] 08558- 5582 Jan, Abdominal pain R10.9 [facility] [id number] [place] [address] 48384- 4457 14 Jan, 2016 [place] [address] [place] [address] 24719- 8677 29 Dec, 2015 Dental examination Z01.20 [place] [id number] [place] [address] 33297- 9700 22 Dec, 2015 Dental examination Z01.20 and Dental caries K02.9 [place] [id number] [place] [address] 36161- 7001 15 Dec, 2015 Bipolar disorder, current episode mixed, moderate F31.62 and Generalized anxiety disorder F41.1 [place] [address] 66032- 4009 15 Dec, 2015 [place] [id number] [place] [address] 96639- 2635 Nov, Bipolar disorder, current episode mixed, moderate F31.62 ; Generalized anxiety disorder F41.1 and Seizure-like activity R56.9 [place] [id number] [place] [address] 22732- 7842 Oct, [place] [id number] [place] [address] 74557- 1291 Oct, Bipolar disorder, current episode mixed, moderate F31.62 [place] [id number] [place] [address] 36445- 1867 14 Oct, 2015 Well woman exam Z01.419 [...] Tobacco use Z72.0 and Hot flashes N95.1 [place] [id number] [place] [address] 46023- 7645 Oct, Seizure-like activity R56.9 and Irregular periods N92.6 [place] [address] 57331- 4263 Oct, Bipolar disorder, current episode mixed, moderate F31.62 ; Generalized anxiety disorder F41.1 and Underweight R63.6 [place] [address] 44224- 4767 Oct, [place] [address] 07794- 0670 Oct, Generalized anxiety disorder F41.1 and Unspecified mood [ affective] disorder F39 [facility] [address] 25366 -3345 Oct, Back pain M54.9 and Anxiety F41.9 [place] [address] 50350- 8780 Oct, [facility] [address] 11636 -0341 Sep, Arm pain, left M79.602 [place] [address] 50162- 2866 Sep, [facility] [address] [id number] Sep, Dental examination Z01.20 and Dental caries K02.9 [place] [address] 94032- 9335 Sep, Generalized anxiety disorder F41.1 and Unspecified episodic mood disorder F39 [place] [address] 84547- 7140 Sep, Bilateral low back pain without sciatica M54.5 and Seizure- like activity R56.9 [place] [address] 78033- 6789 Aug, [place] [address] [address]- 6074 Aug, [facility] [id number] [place] [address] 90186- 1048 Aug, [facility] [id number] [place] [address] 81329- 9449 Aug, Visual changes H53.9 and Bilateral low back pain without sciatica M54.5 [facility] [id number] [place] [address] 10626- 6366 Jul, [facility] [id number] [place] [address] 84395- 6604 Jun, Bipolar I disorder, most recent episode (or current) mixed, moderate 296.62 ; Generalized anxiety disorder 300.02 and High risk medication use V58.69 [facility] [id number] [place] [address] 26552- 7386 Jun, [facility] [id number] [place] [address] 54930- 4171 May, [facility] [id number] [place] [address] 33180- 7967 May, Bipolar I disorder, most recent episode (or current) mixed, moderate 296.62 and Generalized anxiety disorder 300.02 [facility] [address] [address] May, Dental examination V72.2 [facility] [address] [place] [address] 32514- 6306 March, Bipolar I disorder, most recent episode (or current) mixed, moderate 296.62 and Generalized anxiety disorder 300.02 [facility] [id number] [place] [address] 36613- 2485 March, [facility] [id number] [place] [address] 66714- 2494 March, [facility] [id number] [place] [address] 62205- 2546 March, Underweight 783.22 ; Hand pain, right 729.5 and Reflux gastritis 535.40 [facility] [id number] [place] [address], [place] [address]- 3042 14 Feb, 2015 [facility] [id number] [place] [address] 11945- 8267 13 Feb, 2015 [facility] [id number] [place] [address], [place] [address]- 8590 18 Jan, 2015 [facility] [id number] [place] [address] 87499- 2623 18 Jan, 2015 [facility] [id number] [place] [address], [place] [address]- 1624 16 Jan, 2015 [facility] [id number] [place] [address] 051636- 7530 16 Jan, 2015 [facility] [id number] [place] [address] 22784- 3494 Jan, [facility] [id number] [place] [address] 06603- 8471 Jan, [facility] [id number] [place] [address] 83625- 0601 05 Jan, 2015 [facility] [address] [address]- 0635 Jan, [facility] [address] [address]- 1944 Jan, [facility] [address] 5548 Jan, [facility] [id number] [place] [address] 51999- 1931 Jan, [facility] [address] [address]- 3423 Jan, [facility] [id number] [place] [address] 68859- 7363 20 Dec, 2014 [facility] [place] [facility] [address] [id number] [place] [address]- 3055 20 Dec, 2014 [facility] [place] [facility] [address] [id number] [place] [address]- 4493 19 Dec, 2014 [facility] [place] [facility] [address] [facility] [id number] [place] [address]- 6888 19 Dec, 2014 [facility] [place] [facility] [address] [id number] [place] [address]- 6655 18 Dec, 2014 [facility] [place] [facility] [address] [id number] [place] [address]- 1077 17 Dec, 2014 [facility] [place] [facility] [address] [facility] [id number] [place] [address]- 7748 17 Dec, 2014 [facility] [place] [facility] [address] [facility] [id number] [place] [address]- 8973 16 Dec, 2014 [facility] [place] [facility] [address] [facility] [id number] [place] [address]- 6977 16 Dec, 2014 [facility] [place] [facility] [address] [facility] [id number] [place] [address]- 3381 05 Dec, 2014 [facility] [place] [facility] [address] [facility] [id number] [place] [address]- 6215 05 Dec, 2014 [facility] [place] [facility] [address] [facility] [id number] [place] [address]- 2543 05 Dec, 2014 [facility] [place] [facility] [address] [facility] [id number] [place] [address]- 2549 05 Dec, 2014 [facility] [place] [facility] [address] [facility] [id number] [place] [address]- 0428 04 Dec, 2014 [facility] [place] [facility] [address] [facility] [id number] [place] [address]- 2545 04 Dec, 2014 [facility] [place] [facility] [address] [facility] [id number] [place] [address]- 2544 Dec, [facility] [place] [facility] [address] [id number] [place] [address]- 0251 Dec, [facility] [place] [facility] [address] [id number] [place] [address]- 5396 Dec, [facility] [place] [facility] [address] [id number] [place] [address]- 1656 Dec, [facility] [place] [facility] [address] [id number] [place] [address]- 9420 Nov, [facility] [place] [facility] [address] [id number] [place] [address]- 6539 Nov, [facility] [place] [facility] [address] [id number] [place] [address]- 2525 Nov, [facility] [place] [facility] [address] [id number] [address]- 9061 Nov, [facility] [place] [facility] [address] [id number] [address]- 0740 Nov, [facility] [place] [facility] [address] [id number], [place] [address]- 9676 Nov, [facility] [place] [facility] [address] [facility] [id number] [id number] Nov, [facility] [place] [facility] [address] [id number] [address]- 5922 Nov, [facility] [place] [facility] [address] [id number] [address]- 4115 Nov, [facility] [place] [facility] [address] [id number] [id number] Nov, [facility] [place] [facility] [address] [id number] [address]- 6434 Nov, [facility] [place] [facility] [address] [id number][place] [address]- 9466 Nov, [facility] [place] [facility] [address] [id number] [place] [address]- 9193 31 Oct, 2014 [facility] [place] [facility] [address] [id number] [place] [address]- 5455 31 Oct, 2014 [facility] [place] [facility] [address] [id number] [place] [address]- 3466 30 Oct, 2014 [facility] [place] [facility] [address] [id number] [place] [address]- 9072 30 Oct, 2014 [facility] [place] [facility] [address] [id number] [place] [address]- 0084 29 Oct, 2014 [facility] [place] [facility] [address] [id number] [place] [address]- 9048 29 Oct, 2014 [facility] [place] [facility] [address] [id number] [place] [address]- 1131 Oct, [facility] [place] [facility] [address] [id number] [place] [address]- 6185 Oct, [facility] [place] [facility] [address] [id number] [place] [address]- 4695 Oct, [facility] [place] [facility] [address] [id number] [place] [address]- 7150 Oct, [facility] [place] [facility] [address] [id number] [place] [address]- 5489 Oct, [facility] [place] [facility] [address] [id number] [place] [address]- 2585 05 Oct, 2014 [facility] [place] [facility] [address] [id number] [place] [address]- 6044 Sep, [facility] [place] [facility] [address] [id number] [place] [address]- 0[address] Sep, [facility] [place] [facility] [address] [id number] [place] [address] Sep, [facility] [place] [facility] [address] [id number] [place] [address] Sep, [facility] [place] [facility] [address] [id number] [place] [address] Sep, [facility] [place] [facility] [address] [id number] [place] [address] Sep, [facility] [place] [facility] [address] [id number] [place] [address] Sep, [facility] [place] [facility] [address] [id number] [place] [address] Sep, [facility] [place] [facility] [address] [id number] [place] [address] Aug, [facility] [place] [facility] [address] [id number] [place] [address] Aug, [facility] [place] [facility] [address] [id number] [place] [address] Aug, [facility] [place] [facility] [address] [id number] [place] [address] Aug, [facility] [place] [facility] [address] [id number] [place] [address] Aug, [facility] [place] [facility] [address] [id number] [place] [address] Aug, [facility] [place] [facility] [address] [id number] [place] [address] Aug, [facility] [place] [facility] [address] [id number] [place] [address] Aug, [facility] [place] [facility] [address] [id number] [place] [address] Aug, [facility] [place] [facility] [address] [id number] [place] [address] Aug, [facility] [place] [facility] [address] [id number] [place] [address] Aug, [facility] [place] [facility] [address] [id number] [place] [address] Aug, [facility] [place] [facility] [address] [id number] [place] [address] Aug, [facility] [place] [facility] [address] [id number] [place] [address] Jul, [facility] [place] [facility] [address] [id number] [place] [address] Jul, [facility] [place] [facility] [address] [id number] [place] [address] Jul, [facility] [place] [facility] [address] [id number] [place] [address] Jul, [facility] [place] [facility] [address] [id number] [place] [address] Jun, [facility] [place] [facility] [address] [id number] [place] [address] Jun, [facility] [place] [facility] [address] [id number] [place] [address] Jun, [facility] [place] [facility] [address] [address] [id number] [place] [address] Jun, [facility] [place] [facility] [address] [id number] [place] [address] Jun, [facility] [place] [facility] [address] [id number] [place] [address] Jun, [facility] [place] [facility] [address] [id number] [place] [address] May, [facility] [place] [facility] [address] [id number] [place] [address] May, [facility] [place] [facility] [address] [id number] [place] [address] May, [facility] [place] [facility] [address] [id number] [place] [address] 47[address] May, [facility] [place] [facility] [address] [id number] [place] [address] Apr, [facility] [address] [id number] [place] [address] Apr, [facility] [address] [id number] [place] [address] 116[address] March, [facility] [address] [id number] [place] [address] 9698 March, [facility] [address] [id number] [place] [address] 1715 March, [facility] [address] [id number] [place] [address] March, [facility] [address] [id number] [place] [address] 71[address] March, [facility] [address] [id number] [place] [address] March, [facility] [address] [id number] [place] [address] Feb, [facility] [address] [id number] [place] [address] 78[address] Feb, [facility] [address] [id number] [place] [address] Dec, [facility] [address] [id number] [place] [address] 0[address] Dec, [facility] [address] [id number] [place] [address] 267[address] Nov, [facility] [place] [facility] [address] [id number] [place] [address] Nov, [facility] [address] [id number] [place] [address] 8410 Sep, [facility] [place] [facility] [address] [id number] [place] [address]- 6731 Sep, [facility] [place] [facility] [address] [id number] [place] [address]- 4445 Sep, [facility] [place] [facility] [address] [id number] [place] [address]- 2524 Sep, [facility] [place] [facility] [address] [id number] [place] [address] 2967 Sep, [facility] [place] [facility] [address] [id number] [place] [address] 0[address] Sep, [facility] [place] [facility] [address] [id number] [place] [address] Sep, [facility] [place] [facility] [address] [id number] [place] [address]- 9926 Aug, [facility] [place] [facility] [address] [id number] [place] [address]- 27[address] Aug, [facility] [place] [facility] [address] [id number] [place] [address]- 0691 Aug, [facility] [place] [facility] [address] [id number] [place] [address] 3566 Aug, [facility] [place] [facility] [address] [id number], [place] [address] Aug, [facility] [place] [facility] [address] [id number], [place] [address] 37[address] Aug, [facility] [place] [facility] [address] [id number], [place] [address] 4[address] 19 Jul, 2013 [facility] [place] [facility] [address] [id number] [place] [address]- 6204 19 Jul, 2013 [facility] [place] [facility] [address] [id number] [place] [address]- 4232 16 Jul, 2013 [facility] [place] [facility] [address] [id number] [place] [address] 13 Jul, 2013 [facility] [place] [facility] [address] [id number] [place] [address]34 Jun, [facility] [address] [id number] [place] [address]- 7117 Jun, [facility] [place] [facility] [address] [id number] [place] [address]- 1571 Jun, [facility] [place] [facility] [address] [id number] [place] [address]- 1045 Jun, [facility] [place] [facility] [address] [id number] [place] [address]- 1749 Jun, [facility] [place] [facility] [address] [id number] [place] [address]- 6894 Jun, [facility] [place] [facility] [address] [id number] [place] [address]- 2759 Jun, [facility] [address] [id number] [place] [address]- 3271 May, [facility] [place] [facility] [address] [id number] [place] [address]- 2999 May, [facility] [place] [facility] [address] [id number] [place] [address]- 5939 May, [facility] [place] [facility] [address] [id number] [place] [address]- 1536 May, [facility] [place] [facility] [address] [id number] [place] [address]- 9771 May, [facility] [place] [facility] [address] [id number] [place] [address]- 5976 May, [facility] [place] [facility] [address] [id number] [place] [address]- 6993 May, [facility] [place] [facility] [address] [id number] [place] [address]- 6689 Apr, [facility] [place] [facility] [address] [id number] [place] [address]- 9784 Apr, [facility] [place] [facility] [address] [id number] [place] [address]- 0014 27 Apr, 2013 [facility] [place] [facility] [address] [id number] [place] [address]- 6185 26 Apr, 2013 [facility] [place] [facility] [address] [id number] [place] [address]- 8428 20 Apr, 2013 [facility] [place] [facility] [address] [id number] [place] [address]- 8640 18 Apr, 2013 [facility] [place] [facility] [address] [id number] [place] [address]- 9011 18 Apr, 2013 [facility] [place] [facility] [address] [id number] [place] [address]- 2525 18 Apr, 2013 [facility] [place] [facility] [address] [id number] [place] [address]- 0466 17 Apr, 2013 [facility] [place] [facility] [address] [id number] [place] [address]- 4576 14 Apr, 2013 [facility] [place] [facility] [address] [id number] [place] [address]- 2237 14 Apr, 2013 [facility] [place] [facility] [address] [id number] [place] [address]- 8200 11 Apr, 2013 [facility] [place] [facility] [address] [id number] [place] [address]- 7984 10 Apr, 2013 [facility] [place] [facility] [address] [id number] [place] [address]- 3162 09 Apr, 2013 [facility] [place] [facility] [address] [id number] [place] [address]- 3323 07 Apr, 2013 [facility] [place] [facility] [address] [id number] [place] [address]- 4556 06 Apr, 2013 [facility] [place] [facility] [address] [id number] [place] [address]- 1172 06 Apr, 2013 [facility] [place] [facility] [address] [id number] [place] [address]- 8213 Apr, [facility] [address] [id number] [place] [address]- 4320 Apr, [facility] [address] [id number] [place] [address]- 5288 March, [facility] [address] [id number] [place] [address]- 6822 March, [facility] [address] [id number] [place] [address]- 4193 March, [facility] [address] [id number] [place] [address]- 4070 March, [facility] [address] [id number] [place] [address]- 7470 March, [facility] [address] [id number] [place] [address]- 8832 March, [facility] [address] [id number] [place] [address]- 2347 March, [facility] [address] [id number] [place] [address]- 0818 Feb, [facility] [address] [id number] [place] [address]- 8277 Feb, [facility] [address] [id number], [place] [address] Jan, [facility] [place] [facility] [address] [id number], [place] [address]- 4326 18 Jan, 2013 [facility] [place] [facility] [address] [id number] [place] [address]- 8679 15 Jan, 2013 [facility] [place] [facility] [address] [id number] [place] [address]- 0881 14 Jan, 2013 [facility] [place] [facility] [address] [id number] [place] [address]- 1896 13 Jan, 2013 [facility] [place] [facility] [address] [id number] [place] [address]- 0815 12 Jan, 2013 [facility] [address] [id number] [place] [address]- 9400 11 Jan, 2013 [facility] [place] [facility] [address] [id number] [place] [address]- 4726 09 Jan, 2013 [facility] [place] [facility] [address] [id number] [place] [address]- 6124 08 Jan, 2013 [facility] [place] [facility] [address] [id number] [place] [address]- 4136 07 Jan, 2013 [facility] [place] [facility] [address] [id number] [place] [address]- 3405 06 Jan, 2013 [facility] [place] [facility] [address] [id number] [place] [address]- 2154 17 Nov, 2012 [facility] [address] [id number] [place] [address]- 7761 Oct, [facility] [address] [id number] [place] [address]- 1747 Oct, [facility] [place] [facility] [address] [id number] [place] [address]- 0755 Oct, [facility] [place] [facility] [address] [id number] [place] [address]- 1734 Oct, [facility] [place] [facility] [address] [id number] [place] [address]- 7293 30 Sep, 2012 [facility] [place] [facility] [address] [id number] [place] [address] 2540 30 Sep, 2012 [facility] [place] [facility] [address] [id number] [place] [address]- 4607 Sep, [facility] [place] [facility] [address] [id number] [place] [address] 2549 16 Sep, 2012 [facility] [place] [facility] [address] [id number] [place] [address]- 0837 Sep, [facility] [place] [facility] [address] [id number] [place] [address]- 0631 Sep, [facility] [place] [facility] [address] [id number] [place] [address]- 8382 Sep, [facility] [place] [facility] [address] [id number] [place] [address]- 4969 Sep, [facility] [place] [facility] [address] [id number] [place] [address]- 8721 Sep, [facility] [place] [facility] [address] [id number] [place] [address]- 9626 Sep, [facility] [place] [facility] [address] [id number] [place] [address]- 6081 Sep, [facility] [place] [facility] [address] [id number] [place] [address]- 8130 Aug, [facility] [place] [facility] [address] [id number] [place] [address]- 0213 Aug, [facility] [place] [facility] [address] [id number] [place] [address]- 3286 Aug, [facility] [place] [facility] [address] [id number] [place] [address]- 6613 28 Jul, 2012 [facility] [place] [facility] [address] [id number] [place] [address]- 8807 25 Jul, 2012 [facility] [place] [facility] [address] [id number] [place] [address]- 6321 19 Jul, 2012 [facility] [place] [facility] [address] [id number] [place] [address]- 3774 17 Jul, 2012 [facility] [place] [facility] [address] [id number] [place] [address]- 2634 20 Jun, 2012 [facility] [place] [facility] [address] [id number] [place] [address]- 1321 16 Jun, 2012 [facility] [place] [facility] [address] [id number] [place] [address]- 0461 15 Jun, 2012 [facility] [place] [facility] [address] [id number] [place] [address]- 5769 15 Jun, 2012 [facility] [place] [facility] [address] [id number] [place] [address]- 2981 13 Jun, 2012 [facility] [place] [facility] [address] [id number] [place] [address]- 3733 March, [facility] [place] [facility] [address] [id number] [place] [address]- 3779 04 Feb, 2012 [facility] [place] [facility] [address] [id number] [place] [address]- 1206 28 Jan, 2012 [facility] [place] [facility] [address] [id number] [place] [address]- 5112 27 Jan, 2012 [facility] [place] [facility] [address] [id number] [place] [address]- 7801 Jan, [facility] [place] [facility] [address] [id number] [place] [address]- 5554 14 Jan, 2012 [facility] [place] [facility] [address] [id number] [place] [address]- 2692 14 Jan, 2012 [facility] [place] [facility] [address] [id number] [place] [address]- 3711 14 Jan, 2012 [facility] [place] [facility] [address] [id number] [place] [address]- 5648 28 Dec, 2011 [facility] [place] [facility] [address] [id number] [place] [address]- 9653 27 Dec, 2011 [facility] [place] [facility] [address] [id number] [place] [address]- 1375 23 Dec, 2011 [facility] [place] [facility] [address] [id number] [place] [address]- 4841 21 Dec, 2011 [facility] [place] [facility] [address] [id number] [place] [address]- 9638 20 Dec, 2011 [facility] [place] [facility] [id number] [address]- 67[address] Dec, [facility] [id number] [address]- 9250 Dec, [facility] [id number] [address]- 9446 Dec, [facility] [id number] [address]- 0724 Nov, [facility] [id number] [address] Oct, [facility] [id number], [place] [address]- 1483 Sep, [facility] [id number], [place] [address]- 8754 Sep, [facility] [id number], [place] [address]- 3119 Sep, [facility] [id number] [address]- 4104 Sep, [facility] [id number] 2611 Sep, [facility] [id number], [place] [address]- 5998 Sep, [facility] [address] [id number] [address]- 6892 Jan, [facility] [address] [id number], [place] [address]- 0499 Apr, IMMUNIZATIONS No Known Immunizations SOCIAL HISTORY Never Assessed REASON FOR VISIT valium PLAN OF CARE VITAL SIGNS MEDICATIONS Medication Instructions Dosage Frequency Start Date End Date Duration Status Valium 2 MG Orally Once a day 1 tablet as needed 24h May, May, 6 days Active RESULTS No Results PROCEDURES No Known [...] History Left ovary removed 12/2016 Hospitalization History [facility] Admission x4 2009 most recent admission Hospitalization History [facility]; overdose 2010 Hospitalization History child 11/29/2016
--- OUTSIDE RECORDS SUMMARY | 2018-04-27 18:55 | XMS REPORT ---
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 Name Role Phone TOMASZMARGARITA Unavailable PROBLEMS Type Condition ICD9-CM Code HXT16-BL Code Onset Dates Condition Status SNOMED Code Problem Generalized anxiety disorder F41.1 Active 19773353 Problem Acute non intractable tension-type headache G44.209 Active 098506775 Problem Acute right-sided low back pain with right-sided sciatica M54.41 Active 849593224 Problem Post traumatic stress disorder F43.10 Active 07130146 Problem Bipolar disorder, current episode mixed, moderate F31.62 Active 099814281 Problem Endometriosis N80.9 Active 670257975 Problem Borderline personality disorder F60.3 Active 23830567 ALLERGIES No Information ENCOUNTERS Encounter Location Date Diagnosis [facility] [id number] [place] [address] 88581- 3152 May, [facility] [address] 30305- [address]65 Apr, Bipolar disorder, current episode mixed, moderate F31.62 ; Post traumatic stress disorder F43.10 and Borderline personality disorder F60.3 [facility] [id number] [place] [address] 99425 -6190 March, Abdominal pain R10.9 ; UTI symptoms R39.9 and Other microscopic hematuria R31.29 [facility] [address] 41975- 2045 March, [facility] [address] 26576- 4108 March, Bipolar disorder, current episode mixed, moderate F31.62 ; Post traumatic stress disorder F43.10 and Borderline personality disorder F60.3 [facility] [id number] [place] [address] 75099- 8153 30 Feb, 2018 Encounter for immunization Z23 [facility] [address] 92034- 7224 16 Feb, 2018 Bipolar disorder, current episode mixed, moderate F31.62 ; Post traumatic stress disorder F43.10 and Borderline personality disorder F60.3 [place] [address] 72895- 0651 11 Feb, 2018 Bipolar disorder, current episode mixed, moderate F31.62 ; Post traumatic stress disorder F43.10 ; Borderline personality disorder F60.3 and Other fdc (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 Z79.899 [place] [address] 97659- 1891 Jan, Encounter for immunization Z23 [place] [address] 04692- 3538 Jan, [place] [address] 91855- 4469 Jan, Bipolar disorder, current episode mixed, moderate F31.62 [facility] [address] [address]1985 Jan, Lumbar back pain M54.5 [place] [id number] [place] [address] 37930- 7463 28 Dec, 2017 Low back pain M54.5 [place] [address] 38100- 6307 13 Dec, 2017 Bipolar disorder, current episode mixed, moderate F31.62 [place] [address] 83402- 4265 Dec, Generalized anxiety disorder F41.1 and Bipolar disorder, current episode mixed, moderate F31.62 [facility] [id number] [place] [address] 28014 -7535 31 Luis Eduardo, 2018 Acute non intractable tension-type headache G44.209 [place] [address] [place] [address] 89599- 0915 Nov, Bipolar disorder, current episode mixed, moderate F31.62 ; Post traumatic stress disorder F43.10 and Borderline personality disorder F60.3 [place] [id number] [place] [address] 24779- 5099 Nov, Bipolar disorder, current episode mixed, moderate F31.62 [facility] [place] [id number] [place] [address] 90757 -4257 Nov, Abdominal pain R10.9 ; History of PCOS Z87.42 ; History of endometriosis Z87.42 and Pelvic pain R10.2 [place] [id number] [place] [address] 83281- 6178 Nov, [facility] [place] [id number] [place] [address] 56429 -4213 Oct, History of PCOS Z87.42 ; History of endometriosis Z87.42 and Pain R52 [place] [id number] [place] [address] 44475- 9116 Oct, Bipolar disorder, current episode mixed, moderate F31.62 ; Post traumatic stress disorder F43.10 and Borderline personality disorder F60.3 [place] [id number] [place] [address] 97857- 0713 Oct, Bipolar disorder, current episode mixed, moderate F31.62 [place] [id number] [place] [address] 73574- 6444 Sep, Bipolar disorder, current episode mixed, moderate F31.62 ; Post traumatic stress disorder F43.10 ; Borderline personality disorder F60.3 and Other fdc (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 Z79.899 [place] [id number] [place] [address] 80031- 9696 Sep, Bipolar disorder, current episode mixed, moderate F31.62 [facility] [address] 42054 -3140 Sep, Endometriosis N80.9 and Acute right-sided low back pain with right-sided sciatica M54.41 [facility] [address] [place] [address] 05778- 1000 Aug, [facility] [id number] [place] [address] 46098- 6702 Aug, Bipolar disorder, current episode mixed, moderate F31.62 ; Post traumatic stress disorder F43.10 and Borderline personality disorder F60.3 [facility] [address] [place] [address] 07472- 7839 11 Aug, 2017 Bipolar disorder, current episode mixed, moderate F31.62 ; Post traumatic stress disorder F43.10 and Borderline personality disorder F60.3 [facility] [address] [place] [address] 73815- 1698 13 Jul, 2017 Bipolar disorder, current episode mixed, moderate F31.62 ; Post traumatic stress disorder F43.10 and Borderline personality disorder F60.3 [facility] [address] [place] [address] 64022 -2706 11 Jul, 2017 Pharyngitis, unspecified etiology J02.9 and Streptococcal pharyngitis J02.0 [facility] [address] [place] [address] 55918- 6605 16 Jun, 2017 Bipolar disorder, current episode mixed, moderate F31.62 ; Post traumatic stress disorder F43.10 and Borderline personality disorder F60.3 [facility] [address] [address]- 8036 May, [facility] [id number] [place] [address] 71190- 4204 May, [facility] [address] [place] [address] 46040- 8489 17 May, 2017 Bipolar disorder, current episode mixed, moderate F31.62 and Generalized anxiety disorder F41.1 [facility] [id number] [place] [address] 93376- 9435 March, Bipolar disorder, current episode mixed, moderate F31.62 and Generalized anxiety disorder F41.1 [facility] [id number] [place] [address]71 March, Pelvic pain R10.2 [facility] [id number] [place] [address] 95981- 1114 March, [facility] [id number] [place] [address] 60197- 9891 Feb, Bipolar disorder, current episode mixed, moderate F31.62 and Generalized anxiety disorder F41.1 [place] [id number] [place] [address] 68178- 0884 Jan, [place] [id number] [place] [address] 20627- 8412 Jan, Bipolar disorder, current episode mixed, moderate F31.62 [place] [id number] [place] [address] 33856- 8366 Jan, Bipolar disorder, current episode mixed, moderate F31.62 [place] [id number] [place] [address] 18355- 6277 Jan, Bilateral low back pain without sciatica M54.5 [facility] [id number] [place] [address] [id number] Jan, Dental caries K02.9 and Dental examination Z01.20 [facility] [id number] [place] [address] [id number] 09 Jan, 2017 Encounter for dental examination and cleaning without abnormal findings Z01.20 [facility] [id number] [place] [address] 88269- 7025 Jan, Bipolar disorder, current episode mixed, moderate F31.62 and Generalized anxiety disorder F41.1 [facility] [id number] [place] [address] 37571- 7766 Dec, [facility] [id number] [place] [address] 53557- 3274 06 Dec, 2016 Bipolar disorder, current episode mixed, moderate F31.62 and Generalized anxiety disorder F41.1 [place] [id number] [place] [address] 38924- 9354 03 Dec, 2016 Other fatigue R53.83 and Orthostatic hypotension I95.1 [facility] [address] [id number] Nov, Dental examination Z01.20 [facility] [id number] [place] [address] 88769 -5171 Nov, Bronchitis J40 [place] [address] 72158- 8762 Oct, Generalized anxiety disorder F41.1 [place] [address] 75544- 9468 14 Sep, 2016 Bipolar disorder, current episode mixed, moderate F31.62 and Generalized anxiety disorder F41.1 [place] [id number] [place] [address] 38878- 9495 Sep, Bipolar disorder, current episode mixed, moderate F31.62 and Generalized anxiety disorder F41.1 [facility] [id number] [place] [address] 20436 -0326 08 Jul, 2016 Upper respiratory tract infection, unspecified type J06.9 [place] [id number] [place] [address] 55172- 4705 Jun, Bipolar disorder, current episode mixed, moderate F31.62 and Generalized anxiety disorder F41.1 [place] [address] 10076- 0885 Apr, [place] [address] 65126- 3805 Apr, Encounter for test, result positive Z32.01 [place] [address] 88146- 0592 March, [facility] [address] [address]- 1619 March, Bipolar disorder, current episode mixed, moderate F31.62 and Generalized anxiety disorder F41.1 [facility] [address] [address] 1989 March, Bipolar disorder, current episode mixed, moderate F31.62 and Generalized anxiety disorder F41.1 [facility] [id number] [place] [address] 76661- 3814 March, [facility] [id number] [place] [address] 25900- 1638 March, [facility] [address] [place] [address] 10222- 7869 Feb, [facility] [id number] [place] [address] 03560- 3488 Feb, [facility] [address] [place] [address] 50322- 1364 Feb, Bipolar disorder, current episode mixed, moderate F31.62 and Generalized anxiety disorder F41.1 [facility] [address] [address]- 0614 Jan, Abdominal pain R10.9 [facility] [address] [address]- 2929 14 Jan, 2016 [facility] [address] [address]- 8924 29 Dec, 2015 Dental examination Z01.20 [facility] [id number] [place] [address] 34421- 6380 22 Dec, 2015 Dental examination Z01.20 and Dental caries K02.9 [facility] [address] [address]- 3380 15 Dec, 2015 Bipolar disorder, current episode mixed, moderate F31.62 and Generalized anxiety disorder F41.1 [place] [address] [place] [address] 25685- 9389 15 Dec, 2015 [place] [id number] [place] [address] 91349- 4914 Nov, Bipolar disorder, current episode mixed, moderate F31.62 ; Generalized anxiety disorder F41.1 and Seizure-like activity R56.9 [place] [id number] [place] [address] 57428- 1365 Oct, [place] [id number] [place] [address] 19713- 5402 Oct, Bipolar disorder, current episode mixed, moderate F31.62 [place] [id number] [place] [address] 12905- 2939 14 Oct, 2015 Well woman exam Z01.419 [...] Tobacco use Z72.0 and Hot flashes N95.1 [place] [id number] [place] [address] 56225- 7718 09 Oct, 2015 Seizure-like activity R56.9 and Irregular periods N92.6 [place] [address] [place] [address] 32979- 7701 07 Oct, 2015 Bipolar disorder, current episode mixed, moderate F31.62 ; Generalized anxiety disorder F41.1 and Underweight R63.6 [place] [address] [place] [address] 37810- 3500 Oct, [place] [id number] [place] [address] 21258- 1780 Oct, Generalized anxiety disorder F41.1 and Unspecified mood [ affective] disorder F39 [facility] [id number] [place] [address] 92173 -6301 Oct, Back pain M54.9 and Anxiety F41.9 [facility] [id number] [place] [address] 52323- 7965 Oct, [facility] [address] 91716 -7727 Sep, Arm pain, left M79.602 [facility] [address] 18527- 3528 Sep, [facility] [address] [id number] Sep, Dental examination Z01.20 and Dental caries K02.9 [facility] [id number] [place] [address] 32634- 9827 Sep, Generalized anxiety disorder F41.1 and Unspecified episodic mood disorder F39 [facility] [id number] [place] [address] 74544- 2000 Sep, Bilateral low back pain without sciatica M54.5 and Seizure- like activity R56.9 [facility] [id number] [place] [address] 74444- 7124 Aug, [facility] [id number] [place] [address] 77606- 4327 Aug, [facility] [id number] [place] [address] 23153- 5439 Aug, [facility] [address] 25130- 5597 Aug, Visual changes H53.9 and Bilateral low back pain without sciatica M54.5 [facility] [id number] [place] [address] 59730- 4291 Jul, [facility] [address] [address]- 5106 Jun, Bipolar I disorder, most recent episode (or current) mixed, moderate 296.62 ; Generalized anxiety disorder 300.02 and High risk medication use V58.69 [facility] [address] [address]- 8894 Jun, [facility] [id number] [place] [address] 67755- 1491 May, [facility] [id number] [place] [address] 04976- 4346 May, Bipolar I disorder, most recent episode (or current) mixed, moderate 296.62 and Generalized anxiety disorder 300.02 [facility] [address] [place] [address] [id number] May, Dental examination V72.2 [facility] [id number] [place] [address] 63831- 5298 March, Bipolar I disorder, most recent episode (or current) mixed, moderate 296.62 and Generalized anxiety disorder 300.02 [facility] [id number] [place] [address] 75398- 6507 March, [facility] [id number] [place] [address] 90108- 6363 March, [facility] [id number] [place] [address] 24744- 0985 March, Underweight 783.22 ; Hand pain, right 729.5 and Reflux gastritis 535.40 [facility] [id number] [place] [address] 47858- 0410 Feb, [facility] [id number] [place] [address] 89560- 9452 Feb, [facility] [address] [place] [address] 36963- 1659 Jan, [facility] [id number] [place] [address] 19302- 3764 18 Jan, 2015 [facility] [place] [facility] [address] [id number] [place] [address]- 9107 16 Jan, 2015 [facility] [place] [facility] [address] [facility] [id number] [place] [address]- 6670 16 Jan, 2015 [facility] [place] [facility] [address] [facility] [id number] [place] [address]- 2888 13 Jan, 2015 [facility] [place] [facility] [address] [facility] [id number] [place] [address]- 0275 13 Jan, 2015 [facility] [place] [facility] [address] [facility] [id number] [place] [address]- 7654 05 Jan, 2015 [facility] [place] [facility] [address] [facility] [id number] [place] [address]- 2798 05 Jan, 2015 [facility] [place] [facility] [id number] [place] [address]- 6201 Jan, [facility] [place] [facility] [address] [facility] [id number] [place] [address]- 3623 04 Jan, 2015 [facility] [place] [facility] [id number] [place] [address]- 8957 Jan, [facility] [place] [facility] [address] [facility] [id number] [place] [address]- 5884 Jan, [facility] [place] [facility] [address] [facility] [id number] [place] [address]- 1794 Dec, 2014 [facility] [place] [facility] [address] [facility] [id number] [address]- 0753 Dec, 2014 [facility] [place] [facility] [address] [id number] [place] [address]- 3512 Dec, 2014 [facility] [place] [facility] [address] [facility] [id number] [address]- 2008 Dec, 2014 [facility] [place] [facility] [address] [facility] [id number], [place] [address]- 2489 18 Dec, 2014 [facility] [place] [facility] [address] [id number] [place] [address]- 3069 Dec, 2014 [facility] [place] [facility] [address] [id number] [place] [address]- 3596 Dec, 2014 [facility] [place] [facility] [address] [facility] [id number] [place] [address]- 1816 16 Dec, 2014 [facility] [place] [facility] [address] [id number] [place] [address]- 254 Dec, 2014 [facility] [place] [facility] [address] [id number] [place] [address]- 6062 Dec, 2014 [facility] [place] [facility] [address] [facility] [id number] [place] [address]- 3271 Dec, 2014 [facility] [place] [facility] [address] [facility] [id number] [place] [address]- 9706 Dec, 2014 [facility] [place] [facility] [address] [facility] [id number] [place] [address]- 7909 Dec, 2014 [facility] [place] [facility] [address] [facility] [id number] [place] [address]- 7598 Dec, 2014 [facility] [place] [facility] [address] [facility] [id number] [place] [address]- 9573 Dec, 2014 [facility] [place] [facility] [address] [facility] [id number] [place] [address]- 6725 Dec, 2014 [facility] [place] [facility] [address] [facility] [id number] [place] [address]- 7344 Dec, 2014 [facility] [place] [facility] [address] [facility] [id number] [place] [address]- 4861 Dec, 2014 [facility] [place] [facility] [address] [facility] [id number] [place] [address]- 8104 Dec, 2014 [facility] [place] [facility] [address] [facility] [id number] [place] [address]- 6753 Nov, [facility] [place] [facility] [address] [id number] [place] [address]- 2546 Nov, [facility] [place] [facility] [address] [id number] [place] [address]- 6086 Nov, [facility] [place] [facility] [address] [id number] [place] [address]- 2546 Nov, [facility] [place] [facility] [address] [id number] [place] [address]- 2546 Nov, [facility] [place] [facility] [address] [id number] [place] [address]- 2546 Nov, [facility] [place] [facility] [address] [id number] [place] [id number] Nov, [facility] [place] [facility] [address] [id number] [place] [address]- 2546 Nov, [facility] [place] [facility] [address] [id number] [place] [address]- 7556 Nov, [facility] [place] [facility] [address] [id number] [place] [id number] Nov, [facility] [place] [facility] [address] [id number] [place] [address]- 2546 Nov, [facility] [place] [facility] [address] [id number] [place] [address]- 2546 Nov, [facility] [place] [facility] [address] [id number] [place] [address]- 2326 Oct, [facility] [place] [facility] [address] [id number] [place] [address]- 2546 Oct, [facility] [place] [facility] [address] [id number] [place] [address] Oct, [facility] [place] [facility] [address] [id number] [place] [address] Oct, [facility] [place] [facility] [address] [id number] [place] [address] Oct, [facility] [place] [facility] [address] [id number] [place] [address] Oct, [facility] [place] [facility] [address] [id number] [place] [address] Oct, [facility] [place] [facility] [address] [id number] [place] [address] Oct, [facility] [place] [facility] [address] [id number] [place] [address] Oct, [facility] [place] [facility] [address] [id number] [place] [address] Oct, [facility] [place] [facility] [address] [id number] [place] [address] Oct, [facility] [place] [facility] [address] [id number] [place] [address] Oct, [facility] [place] [facility] [address] [id number] [place] [address] Sep, [facility] [place] [facility] [address] [id number] [place] [address] Sep, [facility] [place] [facility] [address] [id number] [place] [address] Sep, [facility] [place] [facility] [address] [id number] [address] Sep, [facility] [place] [facility] [address] [id number], [place] [address] Sep, [facility] [place] [facility] [address] [id number] [place] [address] Sep, [facility] [place] [facility] [address] [id number] [place] [address] Sep, [facility] [place] [facility] [address] [id number] [address] Sep, [facility] [place] [facility] [address] [id number], [place] [address] Aug, [facility] [place] [facility] [address] [id number] [place] [address] Aug, [facility] [place] [facility] [address] [id number] [place] [address] Aug, [facility] [place] [facility] [address] [id number] [place] [address] Aug, [facility] [place] [facility] [address] [id number] [place] [address] Aug, [facility] [place] [facility] [address] [id number] [place] [address] 10 Aug, 2014 [facility] [place] [facility] [address] [id number] [place] [address] 08 Aug, 2014 [facility] [place] [facility] [address] [id number] [place] [address] 8[address] 08 Aug, 2014 [facility] [place] [facility] [address] [id number] [place] [address] 6[address] Aug, [facility] [place] [facility] [address] [id number] [place] [address] 7832 Aug, [facility] [place] [facility] [address] [facility] [id number] [place] [address] 97[address] 07 Aug, 2014 [facility] [place] [facility] [address] [id number] [place] [address] 8592 Aug, 2013 [facility] [place] [facility] [address] [id number] [place] [address] 9994 Aug, [facility] [place] [facility] [address] [id number] [place] [address] 43[address] 22 Jul, 2014 [facility] [place] [facility] [address] [id number] [place] [address] 8367 22 Jul, 2013 [facility] [place] [facility] [address] [id number] [place] [address]- 7161 19 Jul, 2013 [facility] [place] [facility] [address] [id number] [place] [address] 8162 Jul, [facility] [place] [facility] [address] [id number] [place] [address]- 8081 Jun, [facility] [place] [facility] [address] [id number] [place] [address] 4812 Jun, [facility] [place] [facility] [address] [id number] [place] [address]- 3247 Jun, [facility] [place] [facility] [address] [id number] [place] [address]- 9264 Jun, [facility] [place] [facility] [address] [id number] [place] [address]- 0355 Jun, [facility] [place] [facility] [address] [id number] [place] [address]- 5290 Jun, [facility] [place] [facility] [address] [id number] [place] [address]- 2397 May, [facility] [place] [facility] [address] [id number] [place] [address]- 9315 May, [facility] [place] [facility] [address] [id number] [place] [address]- 2785 May, [facility] [place] [facility] [address] [id number] [place] [address]- 4522 May, [facility] [place] [facility] [address] [id number] [place] [address]- 4542 Apr, [facility] [place] [facility] [address] [id number] [place] [address]- 5113 Apr, [facility] [place] [facility] [address] [id number] [place] [address]- 2712 March, [facility] [place] [facility] [address] [id number] [place] [address]- 3960 March, [facility] [place] [facility] [address] [id number] [place] [address]- 3477 March, [facility] [place] [facility] [address] [id number] [place] [address]- 5710 March, [facility] [place] [facility] [address] [id number] [place] [address]- 7749 March, [facility] [place] [facility] [address] [id number] [place] [address]- 9221 March, [facility] [place] [facility] [address] [id number] [place] [address]- 9908 Feb, [facility] [place] [facility] [address] [id number] [place] [address]- 1667 Feb, [facility] [place] [facility] [address] [id number] [place] [address]- 3533 Dec, [facility] [place] [facility] [address] [id number] [place] [address]- 5641 Dec, [facility] [place] [facility] [address] [id number] [place] [address]- 0207 Nov, [facility] [place] [facility] [address] [id number] [place] [address]- 0369 Nov, [facility] [place] [facility] [address] [id number] [place] [address]- 7116 Sep, [facility] [place] [facility] [address] [id number] [place] [address]- 2902 Sep, [facility] [place] [facility] [address] [id number] [place] [address]- 9290 Sep, [facility] [place] [facility] [address] [id number] [place] [address]- 6432 Sep, [facility] [place] [facility] [address] [id number] [place] [address]- 6862 Sep, [facility] [place] [facility] [address] [id number] [place] [address]- 2390 Sep, [facility] [place] [facility] [address] [id number] [place] [address]- 9053 Sep, [facility] [place] [facility] [address] [id number] [place] [address]- 9155 Aug, [facility] [place] [facility] [address] [id number] [place] [address]- 8126 Aug, [facility] [place] [facility] [address] [id number] [place] [address]- 0397 Aug, [facility] [place] [facility] [address] [id number] [place] [address]- 4478 Aug, [facility] [place] [facility] [address] [id number] [place] [address]- 2394 Aug, [facility] [place] [facility] [address] [id number] [place] [address]- 0687 Aug, [facility] [place] [facility] [address] [id number] [place] [address]- 5633 Jul, [facility] [place] [facility] [address] [id number] [place] [address]- 3687 Jul, [facility] [place] [facility] [address] [id number] [place] [address]- 3185 16 Jul, 2013 [facility] [place] [facility] [address] [id number] [place] [address]- 0263 Jul, [facility] [place] [facility] [address] [id number] [place] [address]- 2585 Jun, [facility] [place] [facility] [address] [id number] [place] [address]- 4888 Jun, [facility] [place] [facility] [address] [id number] [place] [address]- 5092 Jun, [facility] [place] [facility] [address] [id number] [place] [address]- 6351 Jun, [facility] [place] [facility] [address] [id number] [place] [address]- 5535 Jun, [facility] [place] [facility] [address] [id number] [place] [address]- 9810 Jun, [facility] [place] [facility] [address] [id number] [place] [address]- 3143 Jun, [facility] [place] [facility] [address] [id number] [place] [address]- 3542 May, [facility] [place] [facility] [address] [id number] [place] [address]- 4850 May, [facility] [address] [id number] [place] [address]- 0562 May, [facility] [place] [facility] [address] [id number] [place] [address]- 9264 May, [facility] [address] [id number] [place] [address]- 1229 May, [facility] [address] [id number] [place] [address]- 5242 May, [facility] [place] [facility] [address] [id number] [place] [address]- 1693 May, [facility] [place] [facility] [address] [id number] [place] [address]- 1277 Apr, [facility] [place] [facility] [address] [id number] [place] [address]- 1667 Apr, [facility] [place] [facility] [address] [id number] [place] [address]- 1694 Apr, [facility] [place] [facility] [address] [id number] [place] [address]- 5258 Apr, [facility] [place] [facility] [address] [id number] [place] [address]- 6786 Apr, [facility] [place] [facility] [address] [id number] [place] [address]- 0524 Apr, [facility] [place] [facility] [address] [id number] [place] [address]- 6992 18 Apr, 2013 [facility] [place] [facility] [address] [id number] [place] [address]- 8038 18 Apr, 2013 [facility] [place] [facility] [address] [id number] [place] [address]- 1563 17 Apr, 2013 [facility] [place] [facility] [address] [id number] [place] [address]- 9669 14 Apr, 2013 [facility] [place] [facility] [address] [id number] [place] [address]- 2941 14 Apr, 2013 [facility] [place] [facility] [address] [id number] [place] [address]- 4800 11 Apr, 2013 [facility] [place] [facility] [address] [id number] [place] [address]- 4870 10 Apr, 2013 [facility] [place] [facility] [address] [id number] [place] [address]- 6939 09 Apr, 2013 [facility] [place] [facility] [address] [id number] [place] [address]- 0518 07 Apr, 2013 [facility] [place] [facility] [address] [id number] [place] [address]- 4772 06 Apr, 2013 [facility] [place] [facility] [address] [id number] [place] [address]- 8220 06 Apr, 2013 [facility] [place] [facility] [address] [id number] [place] [address]- 6942 05 Apr, 2013 [facility] [place] [facility] [address] [id number] [place] [address]- 9720 Apr, [facility] [place] [facility] [address] [id number] [place] [address]- 0982 March, [facility] [place] [facility] [address] [id number] [place] [address]- 6326 March, [facility] [place] [facility] [address] [id number] [place] [address]- 6088 March, [facility] [place] [facility] [address] [id number] [place] [address]- 9306 14 Mar, 2013 [facility] [address] [id number] [place] [address]- 8095 March, [facility] [address] [id number] [place] [address]- 1546 March, [facility] [address] [id number] [place] [address]- 2469 March, [facility] [address] [id number] [place] [address]- 0241 Feb, [facility] [address] [id number] [place] [address]- 1503 Feb, [facility] [address] [id number] [place] [address]- 0516 Jan, [facility] [address] [id number] [place] [address]- 1385 18 Jan, 2013 [facility] [address] [id number] [place] [address]- 7486 15 Jan, 2013 [facility] [address] [id number] [place] [address]- 3333 14 Jan, 2013 [facility] [address] [id number] [place] [address]- 6531 13 Jan, 2013 [facility] [address] [id number] [place] [address]- 5739 12 Jan, 2013 [facility] [address] [id number] [place] [address]- 8488 11 Jan, 2013 [facility] [address] [id number] [place] [address]- 9391 09 Jan, 2013 [facility] [address] [id number] [place] [address]- 7696 08 Jan, 2013 [facility] [address] [id number] [place] [address]- 4181 Jan, [facility] [place] [facility] [address] [id number] [place] [address]- 2796 Jan, [facility] [place] [facility] [address] [id number] [place] [address]- 9788 Nov, [facility] [place] [facility] [address] [id number] [place] [address]- 9424 Oct, [facility] [place] [facility] [address] [id number] [place] [address]- 1444 Oct, [facility] [place] [facility] [address] [id number] [place] [address]- 6503 Oct, [facility] [place] [facility] [address] [id number] [place] [address]- 0964 Oct, [facility] [place] [facility] [address] [id number] [place] [address]- 3168 Sep, [facility] [place] [facility] [address] [id number] [place] [address]- 7021 Sep, [facility] [place] [facility] [address] [id number] [place] [address]- 2055 Sep, [facility] [place] [facility] [address] [id number] [place] [address]- 2251 Sep, [facility] [place] [facility] [address] [id number] [place] [address]- 8189 Sep, [facility] [place] [facility] [address] [id number] [place] [address]- 9610 Sep, [facility] [place] [facility] [address] [id number] [place] [address]- 9875 Sep, [facility] [place] [facility] [address] [id number] [place] [address]- 5093 Sep, [facility] [place] [facility] [address] [id number] [place] 3827 Sep, [facility] [place] [facility] [address] [id number] [place] [address]- 9510 Sep, [facility] [place] [facility] [address] [id number] [place] [address]- 3074 Sep, [facility] [place] [facility] [address] [id number] [place] [address]- 8039 Aug, [facility] [place] [facility] [address] [id number] [place] [address]- 1243 Aug, [facility] [place] [facility] [address] [id number] [place] [address]- 2622 Aug, [facility] [place] [facility] [address] [id number] [place] [address]- 6912 28 Jul, 2012 [facility] [place] [facility] [address] [id number] [place] [address]- 8716 25 Jul, 2012 [facility] [place] [facility] [address] [id number] [place] [address]- 5686 19 Jul, 2012 [facility] [place] [facility] [address] [id number] [place] [address]- 2764 17 Jul, 2012 [facility] [place] [facility] [address] [id number] [place] [address]- 6135 20 Jun, 2012 [facility] [place] [facility] [address] [id number] [place] [address]- 5152 16 Jun, 2012 [facility] [place] [facility] [address] [id number] [place] [address]- 7147 15 Jun, 2012 [facility] [place] [facility] [address] [id number] [address]- 9086 15 Jun, 2012 [facility] [place] [facility] [address] [id number] [place] [address]- 5197 13 Jun, 2012 [facility] [place] [facility] [address] [id number] [place] [address]- 9974 March, [facility] [place] [facility] [address] [id number] [place] [address]- 7480 Feb, [facility] [place] [facility] [address] [id number] [place] [address]- 2743 28 Jan, 2012 [facility] [place] [facility] [address] [id number] [place] [address] 2546 27 Jan, 2012 [facility] [place] [facility] [address] [id number] [place] [address] 2546 22 Jan, 2012 [facility] [place] [facility] [address] [id number] [place] [address] 2546 14 Jan, 2012 [facility] [place] [facility] [address] [id number] [place] [address] 2546 14 Jan, 2012 [facility] [place] [facility] [address] [id number] [place] [address]- 3126 14 Jan, 2012 [facility] [place] [facility] [address] [id number] [place] [address]- 2324 28 Dec, 2011 [facility] [place] [facility] [address] [id number] [place] [address]- 2755 27 Dec, 2011 [facility] [place] [facility] [address] [id number] [place] [address]- 7406 23 Dec, 2011 [facility] [place] [facility] [address] [id number] [place] [address]- 9898 21 Dec, 2011 [facility] [place] [facility] [address] [id number] [place] [address]- 1788 20 Dec, 2011 [facility] [place] [facility] [address] [id number] [place] [address] 2546 19 Dec, 2011 [facility] [place] [facility] [address] [id number] [place] [address] 2546 17 Dec, 2011 [facility] [place] [facility] [address] [id number] [place] [address]- 2546 16 Dec, 2011 [facility] [place] [facility] [address] [id number] [place] [address] 2547 31 Nov, 2011 [facility] [place] [facility] [address] [id number], [place] [address]- 9584 Oct, [facility] [address] [id number] [address]- 9062 Sep, [facility] [address] [id number] [address]798 Sep, [facility] [id number], [place] [address]- 7414 Sep, [facility] [id number], [place] [address]- 3049 Sep, [facility] [id number] 7673 Sep, [facility] [id number], [place] [address]- 3693 Sep, [facility] [id number], [place] [address]- 0328 Jan, [facility] [address] [id number], [place] [address]- 2633 Apr, IMMUNIZATIONS No Known Immunizations SOCIAL HISTORY Never Assessed REASON FOR VISIT Controlled Refill Request PLAN OF CARE VITAL SIGNS MEDICATIONS Medication Instructions Dosage Frequency Start Date End Date Duration Status Klonopin 0.5 MG Orally three times a day as needed 1 tablet Aug, 30 days Active RESULTS No Results PROCEDURES No [...]
--- OUTSIDE RECORDS SUMMARY | 2018-04-27 18:56 | XMS REPORT ---
Author Author LEAH VANESSA Organization [facility] Address [address] [place] [address] Care Team Providers Care Heater Furnace Name Role Phone VANESSA LYNN Unavailable PROBLEMS Type Condition ICD9-CM Code [id number] Code Onset Dates Condition Status SNOMED Code Problem Generalized anxiety disorder F41.1 Active 93453926 Problem Acute non intractable tension-type headache G44.209 Active 321112587 Problem Acute right-sided low back pain with right-sided sciatica M54.41 Active 982513363 Problem Post traumatic stress disorder F43.10 Active 32320776 Problem Bipolar disorder, current episode mixed, moderate F31.62 Active 233740624 Problem Endometriosis N80.9 Active 881093487 Problem Borderline personality disorder F60.3 Active 09817821 ALLERGIES Substance Reaction Event Type Date Status Thioridazine HCl tachycardia Drug Allergy Jul, Active Penicillin V Potassium rash Drug Allergy Jul, Active Diclofenac Sodium nausea Drug Allergy Jul, Active Depakote fatigue Drug Allergy Jul, Active ENCOUNTERS Encounter Location Date Diagnosis [facility] [id number] [place] [address] 86325- 1014 March, [facility] [address] [address] 2146 March, [facility] [id number] [place] [address] 82104- 8756 Feb, Bipolar disorder, current episode mixed, moderate F31.62 ; Post traumatic stress disorder F43.10 and Borderline personality disorder F60.3 [facility] [address] [address] 0[address] Feb, Bipolar disorder, current episode mixed, moderate F31.62 ; Post traumatic stress disorder F43.10 ; Borderline personality disorder F60.3 and 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 [facility] [id number] [place] [address] 15958- 6910 Jan, Encounter for immunization Z23 [facility] [id number] [place] [address] 96085- 7191 Jan, [facility] [id number] [place] [address] 34767- 5383 Jan, Bipolar disorder, current episode mixed, moderate F31.62 [facility] [id number] [place] [address] 49320 -3890 Jan, Lumbar back pain M54.5 [place] [id number] [place] [address] 21287- 8866 Dec, Low back pain M54.5 [facility] [id number] [place] [address] 51948- 6565 Dec, Bipolar disorder, current episode mixed, moderate F31.62 [facility] [id number] [place] [address] 40695- 8234 Dec, Generalized anxiety disorder F41.1 and Bipolar disorder, current episode mixed, moderate F31.62 [facility] [id number] [place] [address] 82076 -6116 Nov, Acute non intractable tension-type headache G44.209 [facility] [id number] [place] [address] 22174- 9708 Nov, Bipolar disorder, current episode mixed, moderate F31.62 ; Post traumatic stress disorder F43.10 and Borderline personality disorder F60.3 [facility] [id number] [place] [address] 84004- 0382 Nov, Bipolar disorder, current episode mixed, moderate F31.62 [facility] [id number] [place] [address] 86624 -3029 Nov, Abdominal pain R10.9 ; History of PCOS Z87.42 ; History of endometriosis Z87.42 and Pelvic pain R10.2 [facility] [id number] [place] [address] 89160- 252 Nov, [facility] [id number] [place], [place] [address] -4902 Oct, History of PCOS Z87.42 ; History of endometriosis Z87.42 and Pain R52 [facility] [address] 841148- 3302 Oct, Bipolar disorder, current episode mixed, moderate F31.62 ; Post traumatic stress disorder F43.10 and Borderline personality disorder F60.3 [facility] [place] [id number] [place] [address] 35123- 6603 Oct, Bipolar disorder, current episode mixed, moderate F31.62 [facility] [address] 33354- 6566 Sep, Bipolar disorder, current episode mixed, moderate F31.62 ; Post traumatic stress disorder F43.10 ; Borderline personality disorder F60.3 and Other skilled nursing (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 [id number] [place] [address] 04895 -5180 Sep, Endometriosis N80.9 and Acute right-sided low back pain with right-sided sciatica M54.41 [place] [id number] [place] [address] 95786- 4745 Aug, [facility] [address] 11086- 7109 Aug, Bipolar disorder, current episode mixed, moderate F31.62 ; Post traumatic stress disorder F43.10 and Borderline personality disorder F60.3 [facility] [id number] [place] [address] 91460- 7371 Aug, Bipolar disorder, current episode mixed, moderate F31.62 ; Post traumatic stress disorder F43.10 and Borderline personality disorder F60.3 [facility] [id number] [place] [address] 16157- 9850 13 Jul, 2017 Bipolar disorder, current episode mixed, moderate F31.62 ; Post traumatic stress disorder F43.10 and Borderline personality disorder F60.3 [facility] [id number] [place] [address] 60189 -1093 11 Jul, 2017 Pharyngitis, unspecified etiology J02.9 and Streptococcal pharyngitis J02.0 [facility] [id number] [place] [address] 22361- 4377 16 Jun, 2017 Bipolar disorder, current episode mixed, moderate F31.62 ; Post traumatic stress disorder F43.10 and Borderline personality disorder F60.3 [facility] [id number] [place] [address] 63634- 5689 May, [facility] [id number] [place] [address] 64118- 5673 May, [facility] [id number] [place] [address] 14067- 6225 May, Bipolar disorder, current episode mixed, moderate F31.62 and Generalized anxiety disorder F41.1 [facility] [id number] [place] [address] 50727- 4994 March, Bipolar disorder, current episode mixed, moderate F31.62 and Generalized anxiety disorder F41.1 [facility] [id number] [place] [address] 57909- 9943 March, Pelvic pain R10.2 [facility] [id number] [place] [address] 98206- 5568 March, [facility] [id number] [place] [address] 41344- 1114 05 Feb, 2017 Bipolar disorder, current episode mixed, moderate F31.62 and Generalized anxiety disorder F41.1 [facility] [id number] [place] [address] 65313- 0447 Jan, [facility] [id number] [place] [address] 35443- 8745 Jan, Bipolar disorder, current episode mixed, moderate F31.62 [facility] [id number] [place] [address] 38429- 2061 Jan, Bipolar disorder, current episode mixed, moderate F31.62 [facility] [id number] [place] [address] 08021- 7842 Jan, Bilateral low back pain without sciatica M54.5 [facility] [address] [id number] Jan, Dental caries K02.9 and Dental examination Z01.20 [facility] [address] [id number] Jan, Encounter for dental examination and cleaning without abnormal findings Z01.20 [facility] [id number] [place] [address] 29157- 3436 Jan, Bipolar disorder, current episode mixed, moderate F31.62 and Generalized anxiety disorder F41.1 [facility] [id number] [place] [address] 35799- 8410 Dec, [facility] [id number] [place] [address] 64795- 0661 Dec, Bipolar disorder, current episode mixed, moderate F31.62 and Generalized anxiety disorder F41.1 [facility] [id number] [place] [address] 40071- 2522 Dec, Other fatigue R53.83 and Orthostatic hypotension I95.1 [facility] [id number] [place] [address] [id number] Nov, Dental examination Z01.20 [facility] [id number] [place] [address] 42620 -9218 Nov, Bronchitis J40 [facility] [address] [place] [address] 24713- 7062 Oct, Generalized anxiety disorder F41.1 [facility] [id number] [place] [address] 06034- 3751 14 Sep, 2016 Bipolar disorder, current episode mixed, moderate F31.62 and Generalized anxiety disorder F41.1 [facility] [id number] [place] [address] 12974- 0215 Sep, Bipolar disorder, current episode mixed, moderate F31.62 and Generalized anxiety disorder F41.1 [facility] [id number] [place] [address] 92449 -6503 08 Jul, 2016 Upper respiratory tract infection, unspecified type J06.9 [facility] [id number] [place] [address] 23335- 2796 Jun, Bipolar disorder, current episode mixed, moderate F31.62 and Generalized anxiety disorder F41.1 [place] [id number] [place] [address] 92882- 8972 Apr, [facility] [id number] [place] [address] 19543- 2103 Apr, Encounter for test, result positive Z32.01 [facility] [id number] [place] [address] 79812- 1745 March, [facility] [id number] [place] [address] 63104- 1257 March, Bipolar disorder, current episode mixed, moderate F31.62 and Generalized anxiety disorder F41.1 [place] [id number] [place] [address] 75471- 1046 March, Bipolar disorder, current episode mixed, moderate F31.62 and Generalized anxiety disorder F41.1 [facility] [address] [place] [address] 53551- 8022 March, [facility] [address] [address]- 4665 March, [facility] [id number] [place] [address] 65124- 5221 Feb, [facility] [address] [place] [address] 00496- 7819 Feb, [facility] [id number] [place] [address] 56537- 8953 Feb, Bipolar disorder, current episode mixed, moderate F31.62 and Generalized anxiety disorder F41.1 [facility] [address] [place] [address] 22621- 5633 Jan, Abdominal pain R10.9 [facility] [id number] [place] [address] 07970- 5680 Jan, [facility] [id number] [place] [address] 04305- 5278 29 Dec, 2015 Dental examination Z01.20 [facility] [address] [place] [address] 10688- 5511 Dec, Dental examination Z01.20 and Dental caries K02.9 [facility] [address] [place] [address] 20052- 7967 15 Dec, 2015 Bipolar disorder, current episode mixed, moderate F31.62 and Generalized anxiety disorder F41.1 [facility] [address] [place] [address] 45178- 1359 Dec, [facility] [address] [place] [address] 91276- 3183 Nov, Bipolar disorder, current episode mixed, moderate F31.62 ; Generalized anxiety disorder F41.1 and Seizure-like activity R56.9 [facility] [address] [address]- 8669 Oct, [facility] [address] [place] [address] 30608- 1127 Oct, Bipolar disorder, current episode mixed, moderate F31.62 [place] [address] 98595- 5721 14 Oct, 2015 Well woman exam Z01.419 [...] Tobacco use Z72.0 and Hot flashes N95.1 [place] [address] 95773- 7125 09 Oct, 2015 Seizure-like activity R56.9 and Irregular periods N92.6 [place] [address] 56074- 5652 07 Oct, 2015 Bipolar disorder, current episode mixed, moderate F31.62 ; Generalized anxiety disorder F41.1 and Underweight R63.6 [place] [address] 99397- 1601 Oct, [place] [address] 63572- 1953 Oct, Generalized anxiety disorder F41.1 and Unspecified mood [ affective] disorder F39 [facility] [address] 66569 -2663 Oct, Back pain M54.9 and Anxiety F41.9 [place] [address] 77713- 7032 Oct, [facility] [address] 97908 -0674 Sep, Arm pain, left M79.602 [place] [address] [place] [address]- 0579 Sep, [facility] [address] [place] [address] [id number] Sep, Dental examination Z01.20 and Dental caries K02.9 [facility] [id number] [place] [address] 73850- 6923 Sep, Generalized anxiety disorder F41.1 and Unspecified episodic mood disorder F39 [facility] [id number] [place] [address] 85151- 6164 Sep, Bilateral low back pain without sciatica M54.5 and Seizure- like activity R56.9 [facility] [address] 76205- 8998 Aug, [facility] [id number] [place] [address] 05942- 8804 Aug, [facility] [id number] [place] [address] 23390- 9601 Aug, [facility] [id number] [place] [address] 50659- 9158 Aug, Visual changes H53.9 and Bilateral low back pain without sciatica M54.5 [facility] [id number] [place] [address] 00546- 8125 Jul, [facility] [id number] [place] [address] 78461- 3995 Jun, Bipolar I disorder, most recent episode (or current) mixed, moderate 296.62 ; Generalized anxiety disorder 300.02 and High risk medication use V58.69 [facility] [id number] [place] [address] 99006- 6069 Jun, [facility] [id number] [place] [address] 05274- 0300 May, [facility] [id number] [place] [address] 91454- 8410 May, Bipolar I disorder, most recent episode (or current) mixed, moderate 296.62 and Generalized anxiety disorder 300.02 [facility] [id number] [id number] May, Dental examination V72.2 [facility] [id number] [address]- 5406 March, Bipolar I disorder, most recent episode (or current) mixed, moderate 296.62 and Generalized anxiety disorder 300.02 [facility] [id number] [place] [address] 199211- 3466 March, [facility] [id number] [place] [address] 336253- 9023 March, [facility] [id number] [place] [address] 65386- 6008 March, Underweight 783.22 ; Hand pain, right 729.5 and Reflux gastritis 535.40 [facility] [id number] [address]- 6454 Feb, [facility] [address] [place] [address] 74283- 4928 Feb, [facility] [id number] [place] [address] [id number]- 7238 Jan, [facility] [address] [address]- 3015 18 Jan, 2015 [facility] [address] [address]- 8682 16 Jan, 2015 [facility] [address] [address]- 0431 16 Jan, 2015 [facility] [id number] [place] [address] [id number]- 1347 Jan, [facility] [address] 1542 Jan, [facility] [id number] [place] [address], [place] [address]- 5001 05 Jan, 2014 [facility] [place] [facility] [address] [id number] [place] [address]- 7301 05 Jan, 2014 [facility] [place] [facility] [address] [facility] [id number] [place]- 3988 04 Jan, 2014 [facility] [place] [facility] [address] [facility] [id number] [place] [address]- 9612 04 Jan, 2014 [facility] [place] [facility] [address] [id number] [place] [address]- 3329 02 Jan, 2014 [facility] [place] [facility] [address] [id number] [place] [address]- 0528 02 Jan, 2014 [facility] [place] [facility] [address] [facility] [id number] [place] [address]- 8863 20 Dec, 2014 [facility] [place] [facility] [address] [facility] [id number] [place] [address]- 1726 20 Dec, 2014 [facility] [place] [facility] [address] [facility] [id number] [place] [address]- 4410 19 Dec, 2014 [facility] [place] [facility] [address] [facility] [id number] [place] [address]- 6300 19 Dec, 2014 [facility] [place] [facility] [address] [facility] [id number] [place] [address]- 5660 18 Dec, 2014 [facility] [place] [facility] [address] [facility] [id number] [place] [address]- 1202 17 Dec, 2014 [facility] [place] [facility] [address] [facility] [id number] [place] [address]- 5624 17 Dec, 2014 [facility] [place] [facility] [address] [facility] [id number] [place]- 1190 16 Dec, 2014 [facility] [place] [facility] [address] [facility] [id number] [place] [address]- 9368 16 Dec, 2014 [facility] [place] [facility] [address] [facility] [id number] [place] [address]- 3840 Dec, 2014 [facility] [place] [facility] [address] [id number] [place] [address]- 0364 Dec, 2014 [facility] [place] [facility] [address] [id number] [place] [address]- 3976 Dec, 2014 [facility] [place] [facility] [address] [facility] [id number] [place] [address]- 8376 Dec, 2014 [facility] [place] [facility] [address] [id number] [place] [address]- 5088 Dec, 2014 [facility] [place] [facility] [address] [id number] [place] [address]- 1504 Dec, 2014 [facility] [place] [facility] [address] [facility] [id number] [place] [address]- 1924 Dec, 2014 [facility] [place] [facility] [address] [facility] [id number] [place] [address]- 1391 Dec, 2014 [facility] [place] [facility] [address] [facility] [id number] [place] [address]- 9398 Dec, [facility] [place] [facility] [address] [facility] [id number] [place] [address]- 7741 Dec, 2014 [facility] [place] [facility] [address] [facility] [id number] [place] [address]- 1835 Nov, [facility] [place] [facility] [address] [facility] [id number] [place] [address]- 9265 Nov, [facility] [place] [facility] [address] [facility] [id number] [address]- 3065 Nov, [facility] [place] [facility] [address] [id number] [address]- 5147 Nov, [facility] [place] [facility] [address] [facility] [id number] [address]- 6097 Nov, [facility] [place] [facility] [address] [facility] [id number] [address]- 7772 Nov, [facility] [place] [facility] [address] [id number] [place] [id number] Nov, [facility] [address] [id number] [place] [address]- 5256 Nov, [facility] [address] [id number] [place] [address]- 2546 Nov, [facility] [address] [id number] [place] [id number] Nov, [facility] [address] [id number] [place] [address] Nov, [facility] [address] [id number] [place] [address] Nov, [facility] [address] [id number] [place] [address] Oct, [facility] [place] [facility] [address] [id number] [place] [address] Oct, [facility] [address] [id number] [place] Oct, [facility] [place] [facility] [address] [id number] [place] [address] Oct, [facility] [address] [id number] [place] Oct, [facility] [place] [facility] [address] [id number] [place] [address] 29 Oct, 2014 [facility] [place] [facility] [address] [id number] [place] [address] Oct, [facility] [place] [facility] [address] [id number] [place] [address] Oct, [facility] [place] [facility] [address] [id number] [place] [address] Oct, [facility] [place] [facility] [address] [id number] [place] [address] Oct, [facility] [place] [facility] [address] [id number] [place] [address] Oct, [facility] [place] [facility] [address] [id number] [place] [address] Oct, [facility] [place] [facility] [address] [id number] [place] [address] Sep, [facility] [place] [facility] [address] [id number] [place] [address] Sep, [facility] [place] [facility] [address] [id number] [place] [address] Sep, [facility] [place] [facility] [address] [id number] [place] [address] Sep, [facility] [place] [facility] [address] [id number] [place] [address] Sep, [facility] [place] [facility] [address] [id number] [place] [address] Sep, [facility] [place] [facility] [address] [id number] [place] [address] Sep, [facility] [place] [facility] [address] [id number] [place] [address] Sep, [facility] [place] [facility] [address] [id number] [place] [address] Aug, [facility] [place] [facility] [address] [id number] [address] Aug, [facility] [place] [facility] [address] [id number] [place] [address] Aug, [facility] [place] [facility] [address] [id number] [place] [address] Aug, [facility] [place] [facility] [address] [id number] [place] [address] Aug, [facility] [place] [facility] [address] [id number] [place] [address]61 Aug, [facility] [place] [facility] [address] [id number] [place] [address] 08 Aug, 2014 [facility] [place] [facility] [address] [id number] [place] [address] Aug, [facility] [place] [facility] [address] [id number] [place] [address] 8355 Aug, [facility] [place] [facility] [address] [id number] [place] [address]- 7530 Aug, [facility] [place] [facility] [address] [id number] [place] [address]- 0445 Aug, [facility] [place] [facility] [address] [id number] [place] [address]- 4614 Aug, [facility] [place] [facility] [address] [id number] [place] [address]- 1778 Aug, [facility] [place] [facility] [address] [id number] [place] [address]- 5186 Jul, [facility] [place] [facility] [address] [id number] [place] [address]- 7854 Jul, [facility] [place] [facility] [address] [id number] [place] [address]- 9436 Jul, [facility] [place] [facility] [address] [id number] [place] [address]- 2984 Jul, [facility] [place] [facility] [address] [id number] [address] 6469 Jun, [facility] [place] [facility] [address] [id number] [place] [address]- 5[address] Jun, [facility] [place] [facility] [address] [id number] [place] [address]- 3330 Jun, [facility] [place] [facility] [address] [id number] [place] [address]- 5165 Jun, [facility] [place] [facility] [address] [id number] [place] [address]- 0397 Jun, [facility] [place] [facility] [address] [id number] [place] [address]- 6498 Jun, [facility] [place] [facility] [address] [id number] [place] [address]- 5582 May, [facility] [place] [facility] [address] [id number] [place] [address]- 9516 May, [facility] [place] [facility] [address] [id number] [place] [address]- 0528 May, [facility] [place] [facility] [address] [id number] [place] [address]- 2515 May, [facility] [place] [facility] [address] [id number] [place] [address]- 3634 Apr, [facility] [place] [facility] [address] [id number] [place] [address]- 5593 Apr, [facility] [place] [facility] [address] [id number] [place] [address]- 0782 March, [facility] [place] [facility] [address] [id number] [place] [address]- 0374 March, [facility] [place] [facility] [address] [id number] [place] [address]- 1214 March, [facility] [place] [facility] [address] [id number] [place] [address]- 2732 March, [facility] [place] [facility] [address] [id number] [place] [address]- 5697 March, [facility] [place] [facility] [address] [id number] [place] [address]- 1132 March, [facility] [place] [facility] [address] [id number] [place] [address]- 8828 Feb, [facility] [place] [facility] [address] [id number] [place] [address]- 2909 Feb, [facility] [place] [facility] [address] [id number] [place] [address]- 5171 Dec, [facility] [place] [facility] [address] [id number] [place] [address]- 0634 Dec, [facility] [place] [facility] [address] [facility] [id number] [place] [address]- 8133 Nov, [facility] [place] [facility] [address] [id number] [place] [address]- 8144 Nov, [facility] [place] [facility] [address] [id number] [place] [address]- 8453 Sep, [facility] [place] [facility] [address] [id number] [place] [address]- 3617 Sep, [facility] [place] [facility] [address] [id number] [place] [address]- 5459 Sep, [facility] [place] [facility] [address] [id number] [address]- 4683 Sep, [facility] [place] [facility] [address] [id number] [address]- 59[address] Sep, [facility] [place] [facility] [address] [id number] [address]- 2707 Sep, [facility] [place] [facility] [address] [id number] [address] 0[address] Sep, [facility] [place] [facility] [address] [id number] [address]- 9876 Aug, [facility] [place] [facility] [address] [id number] [place] [address]- 1782 Aug, [facility] [place] [facility] [address] [id number] [address]- 4846 Aug, [facility] [place] [facility] [address] [id number] [address] 5722 Aug, [facility] [place] [facility] [address] [id number] [place] [address]- 3856 Aug, [facility] [address] [id number] [place] [address]- 0605 Aug, [facility] [address] [id number] [place] [address]- 8860 Jul, [facility] [address] [id number] [place] [address]- 6687 Jul, [facility] [address] [id number] [place] [address]- 1351 Jul, [facility] [address] [id number] [place] [address]- 4907 Jul, [facility] [address] [id number] [place] [address] 1901 Jun, [facility] [address] [id number] [place] [address]- 9439 Jun, [facility] [address] [id number] [place] [address]- 6594 Jun, [facility] [address] [id number] [place] [address]- 9801 Jun, [facility] [address] [id number] [place] [address]- 2467 Jun, [facility] [place] [facility] [address] [id number] [place] [address]- 2220 Jun, [facility] [address] [id number] [place] [address]- 2956 Jun, [facility] [place] [facility] [address] [id number] [place] [address]- 5192 May, [facility] [place] [facility] [address] [id number] [place] [address]- 9968 May, [facility] [place] [facility] [address] [id number] [place] [address]- 0712 May, [facility] [place] [facility] [address] [id number] [place] [address]- 6896 15 May, 2013 [facility] [place] [facility] [address] [id number] [place] [address]- 6976 13 May, 2013 [facility] [place] [facility] [address] [id number] [place] [address]- 5845 05 May, 2013 [facility] [place] [facility] [address] [id number] [place] [address]- 2499 03 May, 2013 [facility] [place] [facility] [address] [id number] [place] [address]- 6936 28 Apr, 2013 [facility] [place] [facility] [address] [id number] [place] [address]- 4350 27 Apr, 2013 [facility] [place] [facility] [address] [id number] [place] [address]- 5481 27 Apr, 2013 [facility] [place] [facility] [address] [id number] [place] [address]- 7639 26 Apr, 2013 [facility] [place] [facility] [address] [id number] [place] [address]- 7003 20 Apr, 2013 [facility] [place] [facility] [address] [id number] [place] [address]- 1182 18 Apr, 2013 [facility] [place] [facility] [address] [id number] [place] [address]- 6197 18 Apr, 2013 [facility] [place] [facility] [address] [id number] [address]- 1908 18 Apr, 2013 [facility] [place] [facility] [address] [id number] [place] [address]- 4109 17 Apr, 2013 [facility] [place] [facility] [address] [id number] [place] [address]- 2173 14 Apr, 2013 [facility] [place] [facility] [address] [id number] [address]- 3583 14 Apr, 2013 [facility] [place] [facility] [address] [id number] [address]- 0181 Apr, [facility] [address] [id number] [place] [address]- 5057 Apr, [facility] [place] [facility] [address] [id number] [place] [address]- 8621 Apr, [facility] [address] [id number] [place] [address]- 9034 Apr, [facility] [place] [facility] [address] [id number] [place] [address]- 9087 Apr, [facility] [address] [id number] [place] [address]- 4175 Apr, [facility] [address] [id number] [place] [address]- 7556 Apr, [facility] [address] [id number] [place] [address]- 5714 Apr, [facility] [place] [facility] [address] [id number] [place] [address]- 5130 March, [facility] [address] [id number] [place] [address]- 9373 March, [facility] [place] [facility] [address] [id number] [place] [address]- 6720 March, [facility] [address] [id number] [place] [address]- 4950 March, [facility] [place] [facility] [address] [id number] [place] [address]- 5499 March, [facility] [place] [facility] [address] [id number] [place] [address]- 5356 March, [facility] [place] [facility] [address] [id number] [place] [address]- 6189 March, [facility] [place] [facility] [address] [id number] [place] [address]- 3784 Feb, [facility] [place] [facility] [address] [id number] [place] [address]- 2546 03 Feb, 2013 [facility] [address] [id number] [place] [address]- 5786 27 Jan, 2013 [facility] [place] [facility] [address] [id number] [place] [address] 2546 18 Jan, 2013 [facility] [address] [id number] [place] [address]- 0636 15 Jan, 2013 [facility] [place] [facility] [address] [id number] [place] [address]- 9617 14 Jan, 2013 [facility] [address] [id number] [place] [address]- 0016 13 Jan, 2013 [facility] [address] [id number] [place] [address]- 0911 12 Jan, 2013 [facility] [address] [id number] [place] [address]- 8780 11 Jan, 2013 [facility] [address] [id number] [place] [address]- 6785 09 Jan, 2013 [facility] [address] [id number] [place] [address]- 1166 08 Jan, 2013 [facility] [address] [id number] [place] [address]- 1366 07 Jan, 2013 [facility] [address] [id number] [place] [address]- 2546 06 Jan, 2013 [facility] [address] [id number] [place] [address]- 2546 17 Nov, 2012 [facility] [place] [facility] [address] [id number] [place] [address]- 2546 Oct, [facility] [place] [facility] [address] [id number] [place] [address]- 2546 Oct, [facility] [address] [id number] [place] [address]- 0692 Oct, [facility] [place] [facility] [address] [id number] [place] [address]- 6725 Oct, [facility] [place] [facility] [address] [id number] [place] [address]- 2023 Sep, [facility] [place] [facility] [address] [id number] [place] [address]- 1805 Sep, [facility] [place] [facility] [address] [id number] [place] [address]- 0838 Sep, [facility] [place] [facility] [address] [id number] [place] [address]- 6210 Sep, [facility] [place] [facility] [address] [id number] [place] [address]- 6546 Sep, [facility] [place] [facility] [address] [id number] [place] [address]- 0323 Sep, [facility] [place] [facility] [address] [id number] [place] [address]- 1550 Sep, [facility] [place] [facility] [address] [id number] [place] [address]- 3131 Sep, [facility] [place] [facility] [address] [id number] [address]- 9858 Sep, [facility] [place] [facility] [address] [id number] [address]- 4699 Sep, [facility] [place] [facility] [address] [id number] [address]- 6661 Sep, [facility] [place] [facility] [address] [id number] [place] [address]- 9032 Aug, [facility] [place] [facility] [address] [id number] [address]- 4109 Aug, [facility] [place] [facility] [address] [facility] [id number] [address]- 5686 Aug, [facility] [place] [facility] [address] [id number] [place] [address]- 2505 28 Jul, 2012 [facility] [place] [facility] [address] [id number] [place] [address]- 1396 25 Jul, 2012 [facility] [place] [facility] [address] [id number] [place] [address]- 8486 19 Jul, 2012 [facility] [place] [facility] [address] [id number] [place] [address]- 4586 17 Jul, 2012 [facility] [place] [facility] [address] [id number] [place] [address]- 4044 20 Jun, 2012 [facility] [place] [facility] [address] [id number] [place] [address]- 6995 16 Jun, 2012 [facility] [place] [facility] [address] [id number] [place] [address]- 2287 15 Jun, 2012 [facility] [address] [id number] [place] [address]- 9518 15 Jun, 2012 [facility] [place] [facility] [address] [id number] [place] [address]- 9349 13 Jun, 2012 [facility] [place] [facility] [address] [id number] [place] [address]- 2638 18 Mar, 2012 [facility] [place] [facility] [address] [id number] [place] [address]- 6530 04 Feb, 2012 [facility] [place] [facility] [address] [id number] [place] [address]- 7653 28 Jan, 2012 [facility] [place] [facility] [address] [id number] [place] [address]- 2096 27 Jan, 2012 [facility] [place] [facility] [address] [id number] [place] [address]- 3040 22 Jan, 2012 [facility] [place] [facility] [address] [id number] [place] [address]- 3266 14 Jan, 2012 [facility] [place] [facility] [address] [id number] [place] [address]- 7334 14 Jan, 2012 [facility] [place] [facility] [address] [id number] [place] [address]- 8605 14 Jan, 2012 [facility] [place] [facility] [address] [id number] [place] [address]- 2306 28 Dec, 2011 [facility] [place] [facility] [address] [id number] [place] [address]- 7266 27 Dec, 2011 [facility] [place] [facility] [address] [id number] [place] [address]- 7186 23 Dec, 2011 [facility] [place] [facility] [address] [id number] [place] [address]- 4939 Dec, [facility] [place] [facility] [address] [id number] [place] [address]- 3446 20 Dec, 2011 [facility] [place] [facility] [address] [id number] [place] [address]- 3351 19 Dec, 2011 [facility] [place] [facility] [address] [id number] [place] [address]- 8439 17 Dec, 2011 [facility] [place] [facility] [address] [id number] [place] [address]- 0075 16 Dec, 2011 [facility] [place] [facility] [address] [facility] [id number] [place] [address]- 6466 Nov, [facility] [place] [facility] [address] [id number] [place] [address]- 7090 Oct, [facility] [place] [facility] [address] [id number] [place] [address]- 2545 18 Sep, 2011 [facility] [place] [facility] [address] [id number] [place] [address]- 7531 18 Sep, 2011 [facility] [place] [facility] [address] [id number] [place] [address]- 0452 17 Sep, 2011 [facility] [place] [facility] [address] [id number] [place] [address]- 0857 17 Sep, 2011 [facility] [place] [facility] [address] [facility] [id number] [place] [address]- 7037 Sep, [facility] [address] [facility] [id number] [address]- 1025 Sep, [facility] [address] [facility] [id number] [address]- 8454 Jan, [facility] [address] [facility] [id number] [address]- 6168 Apr, IMMUNIZATIONS No Known Immunizations SOCIAL HISTORY Never Assessed REASON FOR VISIT sore throat/dizziness--tcuppettRN, -Sore throat that started Monday with fatigue PLAN OF CARE Activity Details Follow Up follow up if no improvement after medication Reason: VITAL SIGNS Height 66 in 2017-07-24 Weight 118.4 lbs 2017-07-24 Temperature 97.9 degrees Fahrenheit 2017-07-24 Heart Rate 80 bpm 2017-07-24 Respiratory Rate 16 2017-07-24 BMI 19.11 kg/m2 2017-07-24 Blood pressure systolic 118 mmHg 2017-07-24 Blood pressure diastolic 60 mmHg 2017-07-24 MEDICATIONS Medication Instructions Dosage Frequency Start Date End Date Duration Status Azithromycin 250 MG Orally Once a day 2 tablets on the first day, then 1 tablet daily for 4 days 24h Jul, Jul, 5 day(s) Active Valium 5 MG Orally - please fill after 04/12/17. three times a day 1 tablet as needed 8h March, Active Lamictal 25 MG Orally daily for two weeks, then 2 tablets daily 1 tablet 30 day(s) Active Seroquel 100 MG Orally Once a day 1 tablet 24h May, Active RESULTS Name Result Date Reference Range STREP A (IN HOUSE) 2017-07-24 STREP A Positive Control + Lot # [id number] Exp date 08/12/18 PROCEDURES No Known procedures INSTRUCTIONS MEDICATIONS ADMINISTERED [...] History Left ovary removed 12/2016 Hospitalization History [facility] Admission x4 2009 most recent admission Hospitalization History [facility]; overdose 2010 Hospitalization History child 11/29/2016
--- OUTSIDE RECORDS SUMMARY | 2018-04-27 18:58 | XMS REPORT ---
Author Author TOMASZ MARGARITA [facility] Address [address] [place] [address] Care Team Providers Care Operations Planner Name Role Phone TOMASZ, MARGARITA Unavailable PROBLEMS Type Condition ICD9-CM Code [id number] Code Onset Dates Condition Status SNOMED Code Problem Generalized anxiety disorder F41.1 Active 38346686 Problem Acute non intractable tension-type headache G44.209 Active 690056271 Problem Acute right-sided low back pain with right-sided sciatica M54.41 Active 141526628 Problem Post traumatic stress disorder F43.10 Active 32380233 Problem Bipolar disorder, current episode mixed, moderate F31.62 Active 593174976 Problem Endometriosis N80.9 Active 132051413 Problem Borderline personality disorder F60.3 Active 55696100 ALLERGIES Substance Reaction Event Type Date Status Thioridazine HCl tachycardia Drug Allergy Aug, Active Pristiq Unknown Drug Allergy Aug, Active Penicillin V Potassium rash Drug Allergy Aug, Active Diclofenac Sodium nausea Drug Allergy Aug, Active Depakote fatigue Drug Allergy Aug, Active ENCOUNTERS Encounter Location Date Diagnosis [place] [id number] [place] [address] 07504- 8782 Apr, [facility] [id number] [place] [address] 83580- 1579 March, Bipolar disorder, current episode mixed, moderate F31.62 ; Post traumatic stress disorder F43.10 and Borderline personality disorder F60.3 [facility] [id number] [place] [address] 50592- 3717 Feb, Encounter for immunization Z23 [facility] [address] [place] [address] 20995- 2952 Feb, Bipolar disorder, current episode mixed, moderate F31.62 ; Post traumatic stress disorder F43.10 and Borderline personality disorder F60.3 [place] [address] [place] [id number] [place] [address] 81226- 2759 Feb, Bipolar disorder, current episode mixed, moderate F31.62 ; Post traumatic stress disorder F43.10 ; Borderline personality disorder F60.3 and Other director long term care (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 Z79.899 [place] [address] 300446- 5261 Jan, Encounter for immunization Z23 [place] [address] 46799- 6089 Jan, [place] [address] 99455- 7781 Jan, Bipolar disorder, current episode mixed, moderate F31.62 [facility] [id number] [place] [address] 96379 -9843 Jan, Lumbar back pain M54.5 [place] [address] 79408- 6468 Dec, Low back pain M54.5 [place] [address] 92706- 0000 13 Dec, 2017 Bipolar disorder, current episode mixed, moderate F31.62 [place] [address] [address] [id number] [place] [address] 67554- 6757 Dec, Generalized anxiety disorder F41.1 and Bipolar disorder, current episode mixed, moderate F31.62 [facility] [id number] [place] [address] 08301 -0742 Nov, Acute non intractable tension-type headache G44.209 [place] [address] 81973- 3766 Nov, Bipolar disorder, current episode mixed, moderate F31.62 ; Post traumatic stress disorder F43.10 and Borderline personality disorder F60.3 [place] [address] [id number] [place] [address] 85648- 4013 Nov, Bipolar disorder, current episode mixed, moderate F31.62 [facility] [address] 64470 -2851 Nov, Abdominal pain R10.9 ; History of PCOS Z87.42 ; History of endometriosis Z87.42 and Pelvic pain R10.2 [place] [address] 46178- 3103 Nov, [facility] [address] 64958 -1173 Oct, History of PCOS Z87.42 ; History of endometriosis Z87.42 and Pain R52 [place] [address] 22934- 6691 Oct, Bipolar disorder, current episode mixed, moderate F31.62 ; Post traumatic stress disorder F43.10 and Borderline personality disorder F60.3 [place] [address] [address] [id number] [place] [address] 49338- 9616 Oct, Bipolar disorder, current episode mixed, moderate F31.62 [place] [address] 49076- 2763 Sep, Bipolar disorder, current episode mixed, moderate F31.62 ; Post traumatic stress disorder F43.10 ; Borderline personality disorder F60.3 and Other director long term care (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 Z79.899 [place] [address] [id number] [place] [address] 44166- 0523 Sep, Bipolar disorder, current episode mixed, moderate F31.62 [facility] [address] 21683 -8001 Sep, Endometriosis N80.9 and Acute right-sided low back pain with right-sided sciatica M54.41 [place] [address] [id number] [place] [address] 43844- 2931 Aug, [place] [address] 63197- 1859 Aug, Bipolar disorder, current episode mixed, moderate F31.62 ; Post traumatic stress disorder F43.10 and Borderline personality disorder F60.3 [facility] [address] [place] [address] 71826- 0246 11 Aug, 2017 Bipolar disorder, current episode mixed, moderate F31.62 ; Post traumatic stress disorder F43.10 and Borderline personality disorder F60.3 [place] [address] [place] [address] 54230- 1601 13 Jul, 2017 Bipolar disorder, current episode mixed, moderate F31.62 ; Post traumatic stress disorder F43.10 and Borderline personality disorder F60.3 [facility] [address] [place] [address] 94292 -7227 11 Jul, 2017 Pharyngitis, unspecified etiology J02.9 and Streptococcal pharyngitis J02.0 [place] [address] [place] [address] 36235- 5808 Jun, Bipolar disorder, current episode mixed, moderate F31.62 ; Post traumatic stress disorder F43.10 and Borderline personality disorder F60.3 [place] [address] [place] [address] 19952- 2515 May, [place] [address] [address]- 2706 May, [facility] [id number] [place] [address] 39785- 9916 May, Bipolar disorder, current episode mixed, moderate F31.62 and Generalized anxiety disorder F41.1 [place] [address] [address] [id number] [place] [address] 69102- 7360 March, Bipolar disorder, current episode mixed, moderate F31.62 and Generalized anxiety disorder F41.1 [place] [address] [address]- 3385 04 Mar, 2017 Pelvic pain R10.2 [place] [address] [address] [id number] 8216 March, [facility] [address] [place] [address] [address]30 Feb, Bipolar disorder, current episode mixed, moderate F31.62 and Generalized anxiety disorder F41.1 [facility] [id number] [place] [address] 95934- 4678 Jan, [facility] [id number] [place] 7575 Jan, Bipolar disorder, current episode mixed, moderate F31.62 [facility] [address] [id number] [place] [address] 315656- 7588 Jan, Bipolar disorder, current episode mixed, moderate F31.62 [facility] [id number] [place] [address] 41501- 4184 Jan, Bilateral low back pain without sciatica M54.5 [facility] [id number] [place] [address] [id number] Jan, Dental caries K02.9 and Dental examination Z01.20 [facility] [address] [id number] Jan, Encounter for dental examination and cleaning without abnormal findings Z01.20 [facility] [address] [place] [address] 08416- 3926 Jan, Bipolar disorder, current episode mixed, moderate F31.62 and Generalized anxiety disorder F41.1 [facility] [address] [place] [address] 05532- 4748 Dec, [facility] [id number] [place] 6673 Dec, Bipolar disorder, current episode mixed, moderate F31.62 and Generalized anxiety disorder F41.1 [facility] [address] [place] [address] 08670- 1762 Dec, Other fatigue R53.83 and Orthostatic hypotension I95.1 [facility] [id number] [id number] Nov, Dental examination Z01.20 [facility] [id number] [place] [address] 96009 -0159 Nov, Bronchitis J40 [place] [address] [address] [id number] [place] [address] 35434- 5114 Oct, Generalized anxiety disorder F41.1 [place] [address] [address] [id number] [place] [address] 94317- 4979 14 Sep, 2016 Bipolar disorder, current episode mixed, moderate F31.62 and Generalized anxiety disorder F41.1 [place] [address] [id number] [place] [address] 57627- 2456 Sep, Bipolar disorder, current episode mixed, moderate F31.62 and Generalized anxiety disorder F41.1 [facility] [address] [place] [address] 14595 -3924 08 Jul, 2016 Upper respiratory tract infection, unspecified type J06.9 [place] [address] [id number] [place] [address] 58995- 5195 Jun, Bipolar disorder, current episode mixed, moderate F31.62 and Generalized anxiety disorder F41.1 [place] [address] [place] [id number] [place] [address] 17359- 0345 Apr, [place] [address] [place] [id number] [place] [address] 13340- 9195 Apr, Encounter for test, result positive Z32.01 [place] [address] [place] [id number] [place] [address] 65995- 9625 March, [place] [address] 97677- 8632 March, Bipolar disorder, current episode mixed, moderate F31.62 and Generalized anxiety disorder F41.1 [place] [address] 76515- 0531 March, Bipolar disorder, current episode mixed, moderate F31.62 and Generalized anxiety disorder F41.1 [facility] [id number] [place] [address] 01822- 5425 March, [facility] [id number] [place] [address] 55404- 7710 March, [facility] [id number] [place] [address] 81749- 9730 Feb, [facility] [id number] [place] [address] 03854- 9795 Feb, [facility] [id number] [place] [address] 33860- 5271 Feb, Bipolar disorder, current episode mixed, moderate F31.62 and Generalized anxiety disorder F41.1 [place] [address] [place] [id number] [place] [address] 68381- 4999 Jan, Abdominal pain R10.9 [facility] [id number] [place] [address] 74730- 1703 Jan, [facility] [id number] [place] [address] 37540- 7336 29 Dec, 2015 Dental examination Z01.20 [place] [address] [id number] [place] [address] 05296- 8927 22 Dec, 2015 Dental examination Z01.20 and Dental caries K02.9 [facility] [address] [place] [address] 85800- 7655 15 Dec, 2015 Bipolar disorder, current episode mixed, moderate F31.62 and Generalized anxiety disorder F41.1 [facility] [id number] [place] [address] 44606- 9511 Dec, [facility] [address] [place] [address] 08263- 6446 Nov, Bipolar disorder, current episode mixed, moderate F31.62 ; Generalized anxiety disorder F41.1 and Seizure-like activity R56.9 [facility] [address] [place] [address] 97120- 3842 Oct, [facility] [id number] [place] [address] 28434- 1678 Oct, Bipolar disorder, current episode mixed, moderate F31.62 [facility] [id number] [place] [address] 78879- 0529 14 Oct, 2015 Well woman exam Z01.419 [...] Tobacco use Z72.0 and Hot flashes N95.1 [facility] [id number] [place] [address] 49119- 2144 09 Oct, 2015 Seizure-like activity R56.9 and Irregular periods N92.6 [place] [address] [id number] [place] [address] 54602- 9378 07 Oct, 2015 Bipolar disorder, current episode mixed, moderate F31.62 ; Generalized anxiety disorder F41.1 and Underweight R63.6 [facility] [id number] [place] [address] 80602- 1918 Oct, [facility] [id number] [place] [address] 11672- 8672 Oct, Generalized anxiety disorder F41.1 and Unspecified mood [ affective] disorder F39 [facility] [id number] [place] [address] 30980 -6776 Oct, Back pain M54.9 and Anxiety F41.9 [facility] [id number] [place] [address] 08408- 7760 Oct, [facility] [address] [place] [address] 70031 -9660 Sep, Arm pain, left M79.602 [facility] [address] [place] [address] 97903- 9699 Sep, [facility] [id number] [place] [address] [id number] Sep, Dental examination Z01.20 and Dental caries K02.9 [facility] [id number] [place] [address] 23969- 1639 Sep, Generalized anxiety disorder F41.1 and Unspecified episodic mood disorder F39 [facility] [id number] [place] [address] 93618- 4420 Sep, Bilateral low back pain without sciatica M54.5 and Seizure- like activity R56.9 [facility] [id number] [place] [address] 23253- 3558 Aug, [facility] [id number] [place] [address] 17352- 1778 Aug, [facility] [id number] [place] [address] 67819- 9472 Aug, [facility] [id number] [place] [address] 23296- 0396 Aug, Visual changes H53.9 and Bilateral low back pain without sciatica M54.5 [facility] [id number] [place] [address] 83858- 7202 Jul, [facility] [address] 51292- 7658 Jun, Bipolar I disorder, most recent episode (or current) mixed, moderate 296.62 ; Generalized anxiety disorder 300.02 and High risk medication use V58.69 [facility] [id number] [place] [address] 92900- 6975 Jun, [facility] [address] [address]- 9498 May, [facility] [id number] [place] [address] 52136- 9606 May, Bipolar I disorder, most recent episode (or current) mixed, moderate 296.62 and Generalized anxiety disorder 300.02 [facility] [address] [place] [address] [id number] May, Dental examination V72.2 [facility] [id number] [place] [address] 23581- 5884 March, Bipolar I disorder, most recent episode (or current) mixed, moderate 296.62 and Generalized anxiety disorder 300.02 [facility] [address] [address]- 7416 March, [facility] [id number] [place] [address] 66593- 2874 March, [facility] [address] [place] [address] 01026- 6980 March, Underweight 783.22 ; Hand pain, right 729.5 and Reflux gastritis 535.40 [facility] [address] [address]- 5026 Feb, [facility] [address] [address]- 5606 Feb, [facility] [id number] [address]- 8020 18 Jan, 2015 [facility] [id number] [place] [address] 33034- 4255 18 Jan, 2015 [facility] [address] [place] [address] 53422- 7139 Jan, [facility] [address]- 5899 Jan, [facility] [id number] [place] [address]- 4185 13 Jan, 2014 [facility] [place] [facility] [address] [id number] [place] [address]- 5786 13 Jan, 2014 [facility] [place] [facility] [address] [id number] [place] [address]- 9773 05 Jan, 2014 [facility] [place] [facility] [address] [id number] [place] [address]- 8871 05 Jan, 2014 [facility] [place] [facility] [address] [id number] [place] [address]- 4011 Jan, 2014 [facility] [place] [facility] [address] [id number] [place] [address]- 2742 04 Jan, 2014 [facility] [place] [facility] [address] [facility] [id number] [place] [address]- 3116 Jan, [facility] [place] [facility] [address] [facility] [id number] [place] [address]- 8922 Jan, 2014 [facility] [place] [facility] [address] [facility] [id number] [place] [address]- 0826 Dec, [facility] [place] [facility] [address] [facility] [id number] [place] [address]- 3380 Dec, 2014 [facility] [place] [facility] [id number] [place] [address]- 5925 Dec, 2014 [facility] [place] [facility] [address] [facility] [id number] [place] [address]- 4029 Dec, 2014 [facility] [place] [facility] [address] [facility] [id number] [place] [address]- 3076 18 Dec, 2014 [facility] [place] [facility] [address] [facility] [id number] [place] [address]- 4534 17 Dec, 2014 [facility] [place] [facility] [address] [facility] [id number] [place] [address]- 9941 17 Dec, 2014 [facility] [place] [facility] [address] [address]- 1472 Dec, 2014 [facility] [place] [facility] [address] [id number] [place] [address]- 9525 Dec, 2014 [facility] [place] [facility] [address] [id number] [place] [address]- 6387 Dec, 2014 [facility] [place] [facility] [address] [facility] [id number] [place] [address]- 5280 Dec, 2014 [facility] [place] [facility] [address] [id number] [place] [address]- 6323 Dec, 2014 [facility] [place] [facility] [address] [id number] [place] [address]- 2237 Dec, 2014 [facility] [place] [facility] [address] [facility] [id number] [place] [address]- 1767 Dec, 2014 [facility] [place] [facility] [address] [facility] [id number] [place] [address]- 2169 Dec, 2014 [facility] [place] [facility] [address] [facility] [id number] [place] [address]- 3990 Dec, 2014 [facility] [place] [facility] [address] [facility] [id number] [place] [address]- 8155 Dec, 2014 [facility] [place] [facility] [address] [facility] [id number] [address]- 5353 Dec, [facility] [place] [facility] [address] [facility] [id number] [place] [address]- 254 Dec, 2014 [facility] [place] [facility] [address] [facility] [id number], [place] [address]- 5449 Nov, [facility] [place] [facility] [address] [id number] [place] [address]- 4066 Nov, [facility] [place] [facility] [address] [facility] [id number] [place] [address]- 5825 Nov, [facility] [place] [facility] [address] [facility] [id number] [place] [address]- 8764 Nov, [facility] [address] [id number] [place] [address]- 7076 Nov, [facility] [place] [facility] [address] [id number] [place] [address]- 1316 Nov, [facility] [address] [id number] [place] [id number] Nov, [facility] [place] [facility] [address] [id number] [place] [address]- 2546 Nov, [facility] [place] [facility] [address] [id number] [place] [address]- 2546 Nov, [facility] [place] [facility] [address] [id number] [place] [id number] Nov, [facility] [place] [facility] [address] [id number] [place] [address]- 7979 Nov, [facility] [place] [facility] [address] [id number] [place] [address]- 6496 Nov, [facility] [place] [facility] [address] [id number] [place] [address]- 4546 Oct, [facility] [place] [facility] [address] [id number] [place] [address]- 8759 Oct, [facility] [place] [facility] [address] [id number] [place] [address]- 6873 Oct, [facility] [place] [facility] [address] [id number] [place] [address]- 4086 Oct, [facility] [place] [facility] [address] [id number] [place] [address]- 5666 Oct, [facility] [place] [facility] [address] [id number] [place] [address]- 9216 Oct, [facility] [place] [facility] [address] [id number] [place] [address] Oct, [facility] [place] [facility] [address] [id number] [place] [address] Oct, [facility] [place] [facility] [address] [id number] [place] [address] Oct, [facility] [place] [facility] [address] [id number] [place] [address] Oct, [facility] [place] [facility] [address] [id number] [place] [address] Oct, [facility] [place] [facility] [address] [id number] [place] [address] Oct, [facility] [place] [facility] [address] [id number] [place] [address] Sep, [facility] [place] [facility] [address] [id number] [place] [address] Sep, [facility] [place] [facility] [address] [id number] [place] [address] Sep, [facility] [place] [facility] [address] [id number] [place] [address] Sep, [facility] [place] [facility] [address] [id number] [place] [address] Sep, [facility] [place] [facility] [address] [id number] [place] [address] Sep, [facility] [place] [facility] [address] [id number] [place] [address] Sep, [facility] [place] [facility] [address] [id number], [place] [address] Sep, [facility] [place] [facility] [address] [id number] [place] [address] Aug, [facility] [place] [facility] [address] [id number] [place] [address] Aug, [facility] [place] [facility] [address] [id number] [place] [address] Aug, [facility] [place] [facility] [address] [id number] [place] [address] Aug, [facility] [place] [facility] [address] [id number] [place] [address] Aug, [facility] [place] [facility] [address] [id number] [place] [address] Aug, [facility] [place] [facility] [address] [id number] [place] [address] Aug, [facility] [place] [facility] [address] [id number] [place] [address]- [address] Aug, [facility] [place] [facility] [address] [id number] [place] [address] Aug, [facility] [place] [facility] [address] [id number] [place] [address] Aug, [facility] [place] [facility] [address] [id number] [place] [address] Aug, [facility] [place] [facility] [address] [address] [id number] [place] [address] Aug, [facility] [place] [facility] [address] [id number] [place] [address] Aug, [facility] [place] [facility] [address] [id number] [place] [address] Jul, [facility] [place] [facility] [address] [id number] [place] [address] Jul, [facility] [place] [facility] [address] [id number] [place] [address] Jul, [facility] [place] [facility] [address] [id number] [place] [address] Jul, [facility] [place] [facility] [address] [id number] [place] [address] 2989 Jun, [facility] [place] [facility] [address] [id number] [place] [address] 6766 Jun, [facility] [place] [facility] [address] [id number] [place] [address] 1129 Jun, [facility] [place] [facility] [address] [id number] [place] [address] 9534 Jun, [facility] [place] [facility] [address] [id number] [place] [address] Jun, [facility] [place] [facility] [address] [id number] [place] [address]773 Jun, [facility] [place] [facility] [address] [id number] [place] [address] 6[address] May, [facility] [place] [facility] [address] [id number] [place] [address] 8197 May, [facility] [place] [facility] [address] [id number] [place] [address] 1237 May, [facility] [place] [facility] [address] [id number] [place] [address] 5149 May, [facility] [place] [facility] [address] [id number] [place] [address] 5648 Apr, [facility] [place] [facility] [address] [id number] [place] [address]- 6367 Apr, [facility] [place] [facility] [address] [id number] [place] [address] 4842 March, [facility] [place] [facility] [address] [id number] [place] [address] 6[address] March, [facility] [place] [facility] [address] [id number] [place] [address]398 March, [facility] [place] [facility] [address] [id number] [place] [address]- 5299 March, [facility] [place] [facility] [address] [id number] [place] [address]- 3772 March, [facility] [place] [facility] [address] [id number], [place] [address] March, [facility] [place] [facility] [address] [id number] [place] [address] 6106 Feb, [facility] [place] [facility] [address] [id number] [place] [address]- 0690 Feb, [facility] [place] [facility] [address] [facility] [id number] [place] [address]- 7589 Dec, [facility] [place] [facility] [address] [id number] [place] [address]- 9356 Dec, [facility] [place] [facility] [address] [id number] [place] [address] 2119 Nov, [facility] [place] [facility] [address] [id number] [place] [address] Nov, [facility] [place] [facility] [address] [id number] [place] [address] 1330 Sep, [facility] [place] [facility] [address] [id number] [place] [address]- 1719 Sep, [facility] [place] [facility] [address] [facility] [id number] [place] [address]- 5111 Sep, [facility] [place] [facility] [address] [facility] [id number] [place] [address]- 2309 Sep, [facility] [place] [facility] [address] [facility] [id number] [place] [address]- 4739 Sep, [facility] [place] [facility] [address] [facility] [id number], [place] [address] Sep, [facility] [place] [facility] [address] [id number] [place] [address]- 8059 Sep, [facility] [place] [facility] [address] [facility] [id number] [place] [address]- 1045 Aug, [facility] [place] [facility] [address] [facility] [id number], [place] [address]- [address] Aug, [facility] [place] [facility] [address] [id number] [place] [address]- 2788 Aug, [facility] [place] [facility] [address] [id number] [place] [address]- 5633 Aug, [facility] [place] [facility] [address] [id number] [place] [address]- 8218 Aug, [facility] [place] [facility] [address] [id number] [place] [address]- 7569 Aug, [facility] [place] [facility] [address] [id number] [place] [address]- 1675 Jul, [facility] [place] [facility] [address] [id number] [place] [address] 3863 Jul, [facility] [place] [facility] [address] [id number] [place] [address]- 3536 16 Jul, 2013 [facility] [place] [facility] [address] [id number] [place] [address]- 7726 Jul, [facility] [place] [facility] [address] [id number] [place] [address]- 9974 Jun, [facility] [place] [facility] [address] [id number] [place] [address]- 5305 Jun, [facility] [place] [facility] [address] [id number] [place] [address]- 5122 Jun, [facility] [place] [facility] [address] [id number] [place] [address]- 8897 Jun, [facility] [place] [facility] [address] [id number] [place] [address]- 7870 Jun, [facility] [place] [facility] [address] [id number] [place] [address] 1970 Jun, [facility] [place] [facility] [address] [id number] [place] [address]- 2883 Jun, [facility] [place] [facility] [address] [id number] [place] [address]- 4781 23 May, 2013 [facility] [place] [facility] [address] [id number] [place] [address]- 9120 23 May, 2013 [facility] [place] [facility] [address] [id number] [place] [address]- 0038 16 May, 2013 [facility] [place] [facility] [address] [id number] [place] [address]- 5737 15 May, 2013 [facility] [place] [facility] [address] [id number] [place] [address]- 9711 13 May, 2013 [facility] [place] [facility] [address] [id number] [place] [address]- 0664 05 May, 2013 [facility] [place] [facility] [address] [id number] [place] [address]- 8951 03 May, 2013 [facility] [place] [facility] [address] [id number] [place] [address]- 3470 28 Apr, 2013 [facility] [place] [facility] [address] [id number] [place] [address]- 0990 27 Apr, 2013 [facility] [place] [facility] [address] [id number] [place] [address]- 7442 27 Apr, 2013 [facility] [place] [facility] [address] [id number] [place] [address]- 0108 26 Apr, 2013 [facility] [place] [facility] [address] [id number] [place] [address]- 0980 20 Apr, 2013 [facility] [place] [facility] [address] [id number] [place] [address]- 7943 18 Apr, 2013 [facility] [place] [facility] [address] [id number] [place] [address]- 4204 18 Apr, 2013 [facility] [place] [facility] [address] [id number] [place] [address]- 5798 18 Apr, 2013 [facility] [place] [facility] [address] [id number] [place] [address]- 4513 17 Apr, 2013 [facility] [place] [facility] [address] [id number] [place] [address]- 5872 14 Apr, 2013 [facility] [address] [id number] [place] [address]- 5712 14 Apr, 2013 [facility] [address] [id number] [place] [address]- 2139 11 Apr, 2013 [facility] [address] [id number] [place] [address]- 2746 10 Apr, 2013 [facility] [address] [id number] [place] [address]- 4359 09 Apr, 2013 [facility] [address] [id number] [place] [address]- 1270 07 Apr, 2013 [facility] [address] [id number] [place] [address]- 7025 06 Apr, 2013 [facility] [address] [id number] [place] [address]- 4098 06 Apr, 2013 [facility] [address] [id number] [place] [address]- 5905 05 Apr, 2013 [facility] [address] [id number] [place] [address]- 5666 Apr, [facility] [address] [id number] [place] [address]- 3689 March, [facility] [address] [id number] [place] [address]- 5994 March, [facility] [address] [id number] [place] [address]- 3078 March, [facility] [address] [id number] [place] [address]- 6010 March, [facility] [address] [id number] [place] [address]- 0151 March, [facility] [address] [id number] [place] [address]- 2351 March, [facility] [address] [id number] [place] [address]- 9907 March, [facility] [address] [id number] [place] [address]- 4230 Feb, [facility] [address] [id number] [place] [address]- 9488 Feb, [facility] [address] [id number] [place] [address]- 0708 27 Jan, 2013 [facility] [address] [id number] [place] [address]- 8853 18 Jan, 2013 [facility] [address] [id number] [place] [address]- 6460 15 Jan, 2013 [facility] [address] [id number] [place] [address]- 4430 14 Jan, 2013 [facility] [address] [id number] [place] [address]- 6338 13 Jan, 2013 [facility] [address] [id number] [place] [address]- 1371 12 Jan, 2013 [facility] [address] [id number] [place] [address]- 9732 11 Jan, 2013 [facility] [address] [id number] [place] [address]- 9303 09 Jan, 2013 [facility] [place] [facility] [address] [id number] [place] [address]- 1250 08 Jan, 2013 [facility] [place] [facility] [address] [id number] [place] [address]- 5135 07 Jan, 2013 [facility] [place] [facility] [address] [id number] [place] [address]- 9838 06 Jan, 2013 [facility] [place] [facility] [address] [id number] [place] [address]- 1898 17 Nov, 2012 [facility] [place] [facility] [address] [id number], [place] [address]- 2606 Oct, [facility] [place] [facility] [address] [id number] [place] [address]- 7269 Oct, [facility] [place] [facility] [address] [id number] [place] [address]- 9786 Oct, [facility] [place] [facility] [address] [facility] [id number] [place] [address]- 8372 Oct, [facility] [place] [facility] [address] [id number] [place] [address]- 4050 Sep, [facility] [place] [facility] [address] [id number] [place] [address]- 9268 Sep, [facility] [place] [facility] [address] [id number] [place] [address]- 6841 Sep, [facility] [place] [facility] [address] [facility] [id number] [place] [address]- 4337 Sep, [facility] [place] [facility] [address] [id number] [place] [address]- 2231 Sep, [facility] [place] [facility] [address] [id number] [place] [address]- 8849 Sep, [facility] [place] [facility] [address] [facility] [id number] [place] [address]- 8903 Sep, [facility] [place] [facility] [address] [id number], [place] [address]- 5939 Sep, [facility] [place] [facility] [address] [id number], [place] [address]- 9703 Sep, [facility] [place] [facility] [address] [id number], [place] [address]- 5109 Sep, [facility] [place] [facility] [address] [id number], [place] [address]- 1742 Sep, [facility] [place] [facility] [address] [facility] [id number] [place] [address]- 2878 Aug, [facility] [place] [facility] [address] [id number] [place] [address]- 5736 Aug, [facility] [place] [facility] [address] [id number] [place] [address]- 9987 04 Aug, 2012 [facility] [place] [facility] [address] [id number] [place] [address]- 7916 28 Jul, 2012 [facility] [place] [facility] [address] [id number] [place] [address]- 5816 25 Jul, 2012 [facility] [place] [facility] [address] [id number] [place] [address]- 6814 19 Jul, 2012 [facility] [place] [facility] [address] [id number] [place] [address]77 17 Jul, 2012 [facility] [place] [facility] [address] [id number] [place] [address]- 6848 20 Jun, 2012 [facility] [place] [facility] [address] [id number] [place] [address]- 1152 16 Jun, 2012 [facility] [place] [facility] [address] [id number] [place] [address]- 8519 15 Jun, 2012 [facility] [place] [facility] [address] [id number] [place] [address]- 5428 15 Jun, 2012 [facility] [place] [facility] [address] [id number] [place] [address]- 2338 13 Jun, 2012 [facility] [place] [facility] [address] [id number] [place] [address]- 7916 March, [facility] [place] [facility] [address] [id number] [place] [address]- 6164 Feb, [facility] [place] [facility] [address] [id number] [place] [address]- 8083 Jan, [facility] [place] [facility] [address] [id number] [place] [address]- 1146 Jan, [facility] [place] [facility] [address] [id number] [place] [address]- 2476 Jan, [facility] [place] [facility] [address] [id number] [place] [address]- 4886 14 Jan, 2012 [facility] [place] [facility] [address] [id number] [place] [address]- 4016 14 Jan, 2012 [facility] [place] [facility] [address] [id number] [place] [address]- 1141 14 Jan, 2012 [facility] [place] [facility] [address] [id number] [place] [address]- 7144 28 Dec, 2011 [facility] [place] [facility] [address] [id number] [place] [address]- 4418 27 Dec, 2011 [facility] [place] [facility] [address] [id number] [place] [address]- 6606 23 Dec, 2011 [facility] [place] [facility] [address] [id number] [place] [address]- 6780 21 Dec, 2011 [facility] [place] [facility] [address] [id number] [place] [address]- 6206 20 Dec, 2011 [facility] [place] [facility] [address] [id number] [place] [address]- 4305 19 Dec, 2011 [facility] [place] [facility] [address] [id number] [place] [address]- 5683 17 Dec, 2011 [facility] [place] [facility] [address] [id number] [place] [address]- 3814 16 Dec, 2011 [facility] [place] [facility] [address] [id number] [place] [address]- 5372 31 Nov, 2011 [facility] [place] [facility] [address] [id number] [place] [address]- 1724 Oct, [facility] [place] [facility] [address] [id number] [place] [address]604 18 Sep, 2011 [facility] [place] [facility] [address] [id number] [place] [address]- 2492 Sep, [facility] [place] [facility] [address] [facility] [id number] [place] [address]- 0113 17 Sep, 2011 [facility] [address] [facility] [id number], [place] [address]- 1594 Sep, [facility] [address] [id number], [place] [address]- 5400 Sep, [facility] [address] [id number], [place] [address]- 9173 Sep, [facility] [address] [facility] [id number], [place] [address]- 2661 Jan, [facility] [address] [id number], [place] [address]- 6727 Apr, IMMUNIZATIONS No Known Immunizations SOCIAL HISTORY Never Assessed REASON FOR VISIT f/u CBrumbackRN PLAN OF CARE Activity Details Follow Up 4 Weeks Reason: f/u VITAL SIGNS Height 66 in 2017-09-08 Weight 117.0 lbs 2017-09-08 Heart Rate 88 bpm 2017-09-08 Respiratory Rate 16 2017-09-08 BMI 18.88 kg/m2 2017-09-08 Blood pressure systolic 104 mmHg 2017-09-08 Blood pressure diastolic 70 mmHg 2017-09-08 MEDICATIONS Medication Instructions Dosage Frequency Start Date End Date Duration Status Percocet 10-325 MG Orally every 6 hrs 1 tablet as needed 6h Active Lamictal 150 MG Orally Once a day 1 tablet 24h Aug, 30 day(s) Active Klonopin 0.5 MG Orally three times a day as needed 1 tablet Aug, 30 days Active Seroquel 100 MG Orally Once a day 1 tablet 24h Active RESULTS Name Result Date Reference Range URINE DRUG SCREEN (IN HOUSE) 2017-09-08 Lot # DOA Exp date [id number] Control + COCAINE negative AMPH negative MTD negative THC negative OPIATE negative BENZO POSITIVE PCP POSITIVE BAR Negative OXY POSITIVE MAMP negative TCA negative BUP Negative MDMA Negative PROCEDURES Procedure Date Ordered Result Body Site DRUG TEST PRSMV DIR OPT OBS Sep 08, 2017 INSTRUCTIONS MEDICATIONS ADMINISTERED No Known Medications MEDICAL [...]
--- OUTSIDE RECORDS SUMMARY | 2018-04-27 19:00 | XMS REPORT ---
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 Name Role Phone KAREN Esparza Unavailable PROBLEMS Type Condition ICD9-CM Code NAO19-BB Code Onset Dates Condition Status SNOMED Code Problem Generalized anxiety disorder F41.1 Active 21061016 Problem Acute non intractable tension-type headache G44.209 Active 463600737 Problem Acute right-sided low back pain with right-sided sciatica M54.41 Active 925702151 Problem Post traumatic stress disorder F43.10 Active 01652583 Problem Bipolar disorder, current episode mixed, moderate F31.62 Active 439564063 Problem Endometriosis N80.9 Active 450754095 Problem Borderline personality disorder F60.3 Active [id number] ALLERGIES No Information ENCOUNTERS Encounter Location Date Diagnosis [facility] [address] [address] Feb, [facility] [address] [address]- [address] Feb, [facility] [address] [address]43- 2081 Jan, Encounter for immunization Z23 [facility] [address] 10485- 4553 Jan, [facility] [id number] [place] [address] 18875- 4060 Jan, Bipolar disorder, current episode mixed, moderate F31.62 [facility] [address] [address]209 10 Jan, 2018 Lumbar back pain M54.5 [facility] [address] 24911- 6638 28 Dec, 2017 Low back pain M54.5 [facility] [id number] [place] [address] 35169- 8777 13 Dec, 2017 Bipolar disorder, current episode mixed, moderate F31.62 [facility] [id number] [place] [address] 49085- 3855 13 Dec, 2017 Generalized anxiety disorder F41.1 and Bipolar disorder, current episode mixed, moderate F31.62 [facility] [address] [address] Nov, Acute non intractable tension-type headache G44.209 [place] [address] [place] 574199- 8379 Nov, Bipolar disorder, current episode mixed, moderate F31.62 ; Post traumatic stress disorder F43.10 and Borderline personality disorder F60.3 [place] [address] 22557- 1241 Nov, Bipolar disorder, current episode mixed, moderate F31.62 [facility] [place] [id number] [place] [address] 92040 -0035 Nov, Abdominal pain R10.9 ; History of PCOS Z87.42 ; History of endometriosis Z87.42 and Pelvic pain R10.2 [place] [id number] [place] [address] 65501- 9858 Nov, [facility] [address] [address]2498 Oct, History of PCOS Z87.42 ; History of endometriosis Z87.42 and Pain R52 [place] [address] 47306- 6986 Oct, Bipolar disorder, current episode mixed, moderate F31.62 ; Post traumatic stress disorder F43.10 and Borderline personality disorder F60.3 [place] [id number] [place] [address] 59545- 6747 Oct, Bipolar disorder, current episode mixed, moderate F31.62 [facility] [address] [place] [address] 18643- 7969 Sep, Bipolar disorder, current episode mixed, moderate F31.62 ; Post traumatic stress disorder F43.10 ; Borderline personality disorder F60.3 and 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 Z79.899 [facility] [id number] [place] [address] 28184- 3333 Sep, Bipolar disorder, current episode mixed, moderate F31.62 [facility] [id number] [place] [address] 37113 -5404 Sep, Endometriosis N80.9 and Acute right-sided low back pain with right-sided sciatica M54.41 [place] [id number] [place] [address] 71228- 9793 Aug, [place] [address] 82448- 0487 Aug, Bipolar disorder, current episode mixed, moderate F31.62 ; Post traumatic stress disorder F43.10 and Borderline personality disorder F60.3 [place] [id number] [place] [address] 08520- 4375 11 Aug, 2017 Bipolar disorder, current episode mixed, moderate F31.62 ; Post traumatic stress disorder F43.10 and Borderline personality disorder F60.3 [place] [id number] [place] [address] 08418- 6150 13 Jul, 2017 Bipolar disorder, current episode mixed, moderate F31.62 ; Post traumatic stress disorder F43.10 and Borderline personality disorder F60.3 [facility] [address] [place] [address] 83448 -4542 11 Jul, 2017 Pharyngitis, unspecified etiology J02.9 and Streptococcal pharyngitis J02.0 [facility] [address] [place] [address] 29621- 4517 16 Jun, 2017 Bipolar disorder, current episode mixed, moderate F31.62 ; Post traumatic stress disorder F43.10 and Borderline personality disorder F60.3 [facility] [address] [place] [address] 42573- 3963 May, [facility] [id number] [place] [address] 83546- 1897 May, [facility] [id number] [place] [address] 25685- 5723 May, Bipolar disorder, current episode mixed, moderate F31.62 and Generalized anxiety disorder F41.1 [facility] [id number] [place] [address] 11394- 3960 March, Bipolar disorder, current episode mixed, moderate F31.62 and Generalized anxiety disorder F41.1 [facility] [id number] [place] [address] 21606- 6013 March, Pelvic pain R10.2 [facility] [id number] [place] [address] 24806- 4441 March, [facility] [id number] [place] [address] 17042- 0173 Feb, Bipolar disorder, current episode mixed, moderate F31.62 and Generalized anxiety disorder F41.1 [facility] [address] [place] [address] 06986- 5988 Jan, [facility] [id number] [place] [address] 45308- 4417 Jan, Bipolar disorder, current episode mixed, moderate F31.62 [facility] [address] [place] [address] 06804- 4096 Jan, Bipolar disorder, current episode mixed, moderate F31.62 [facility] [id number] [place] [address] 93769- 8526 Jan, Bilateral low back pain without sciatica M54.5 [facility] [address] [place] [address] [id number] 21 Mar, 2017 Dental caries K02.9 and Dental examination Z01.20 [facility] [address] [id number] 09 Jan, 2017 Encounter for dental examination and cleaning without abnormal findings Z01.20 [facility] [address] [place] [address] 341479- 0804 06 Jan, 2017 Bipolar disorder, current episode mixed, moderate F31.62 and Generalized anxiety disorder F41.1 [facility] [id number] [place] [address] 25981- 5768 24 Dec, 2016 [facility] [id number] [place] [address] 29877- 6460 06 Dec, 2016 Bipolar disorder, current episode mixed, moderate F31.62 and Generalized anxiety disorder F41.1 [facility] [address] [place] [address] 43212- 0098 03 Dec, 2016 Other fatigue R53.83 and Orthostatic hypotension I95.1 [facility] [address] [place] [address] [id number] Nov, Dental examination Z01.20 [facility] [id number] [place] [address] 51634 -9343 02 Nov, 2016 Bronchitis J40 [facility] [id number] [place] [address] 83917- 6341 14 Oct, 2016 Generalized anxiety disorder F41.1 [facility] [id number] [place] [address] 52174- 1625 14 Sep, 2016 Bipolar disorder, current episode mixed, moderate F31.62 and Generalized anxiety disorder F41.1 [facility] [id number] [place] [address] 54339- 1856 02 Sep, 2016 Bipolar disorder, current episode mixed, moderate F31.62 and Generalized anxiety disorder F41.1 [facility] [id number] [place] [address] 51924 -2921 08 Jul, 2016 Upper respiratory tract infection, unspecified type J06.9 [facility] [address] [place] [address] 73711- 7825 Jun, Bipolar disorder, current episode mixed, moderate F31.62 and Generalized anxiety disorder F41.1 [facility] [id number] [place] [address] 97184- 4257 Apr, [facility] [id number] [place] [address] 28862- 8474 Apr, Encounter for test, result positive Z32.01 [facility] [id number] [place] [address] 67369- 5845 March, [facility] [id number] [place] [address] 49978- 5612 March, Bipolar disorder, current episode mixed, moderate F31.62 and Generalized anxiety disorder F41.1 [place] [id number] [place] [address] 99219- 9480 March, Bipolar disorder, current episode mixed, moderate F31.62 and Generalized anxiety disorder F41.1 [facility] [id number] [place] [address] 78257- 3930 March, [facility] [id number] [place] [address] 47452- 7222 March, [facility] [id number] [place] [address] 05294- 3392 Feb, [facility] [id number] [place] [address] 80187- 9155 Feb, [facility] [id number] [place] [address] 32031- 4948 Feb, Bipolar disorder, current episode mixed, moderate F31.62 and Generalized anxiety disorder F41.1 [facility] [id number] [place] [address] 85249- 6036 Jan, Abdominal pain R10.9 [facility] [id number] [place] [address] 94659- 1124 14 Jan, 2016 [place] [address] [place] [address] 63460- 5770 29 Dec, 2015 Dental examination Z01.20 [place] [id number] [place] [address] 27699- 1977 22 Dec, 2015 Dental examination Z01.20 and Dental caries K02.9 [place] [id number] [place] [address] 12467- 6592 15 Dec, 2015 Bipolar disorder, current episode mixed, moderate F31.62 and Generalized anxiety disorder F41.1 [place] [address] 47398- 8325 15 Dec, 2015 [place] [id number] [place] [address] 63478- 5649 Nov, Bipolar disorder, current episode mixed, moderate F31.62 ; Generalized anxiety disorder F41.1 and Seizure-like activity R56.9 [place] [id number] [place] [address] 00568- 3569 Oct, [place] [id number] [place] [address] 95404- 0505 Oct, Bipolar disorder, current episode mixed, moderate F31.62 [place] [id number] [place] [address] 01349- 5720 14 Oct, 2015 Well woman exam Z01.419 [...] Tobacco use Z72.0 and Hot flashes N95.1 [place] [id number] [place] [address] 63918- 3914 Oct, Seizure-like activity R56.9 and Irregular periods N92.6 [place] [address] 19031- 7142 Oct, Bipolar disorder, current episode mixed, moderate F31.62 ; Generalized anxiety disorder F41.1 and Underweight R63.6 [place] [address] 06987- 7031 Oct, [place] [address] 15460- 7306 Oct, Generalized anxiety disorder F41.1 and Unspecified mood [ affective] disorder F39 [facility] [address] 64722 -0358 Oct, Back pain M54.9 and Anxiety F41.9 [place] [address] 86654- 4403 Oct, [facility] [address] 26786 -3298 Sep, Arm pain, left M79.602 [place] [address] 82790- 6026 Sep, [facility] [address] [id number] Sep, Dental examination Z01.20 and Dental caries K02.9 [place] [address] 71035- 3265 Sep, Generalized anxiety disorder F41.1 and Unspecified episodic mood disorder F39 [place] [address] 10047- 4545 Sep, Bilateral low back pain without sciatica M54.5 and Seizure- like activity R56.9 [place] [address] 35398- 4542 Aug, [place] [address] [address]- 4926 Aug, [facility] [id number] [place] [address] 45323- 1038 Aug, [facility] [id number] [place] [address] 77520- 5767 Aug, Visual changes H53.9 and Bilateral low back pain without sciatica M54.5 [facility] [id number] [place] [address] 63572- 6370 Jul, [facility] [id number] [place] [address] 69384- 3940 Jun, Bipolar I disorder, most recent episode (or current) mixed, moderate 296.62 ; Generalized anxiety disorder 300.02 and High risk medication use V58.69 [facility] [id number] [place] [address] 30863- 5736 Jun, [facility] [id number] [place] [address] 40812- 4828 May, [facility] [id number] [place] [address] 64253- 3887 May, Bipolar I disorder, most recent episode (or current) mixed, moderate 296.62 and Generalized anxiety disorder 300.02 [facility] [address] [address] May, Dental examination V72.2 [facility] [address] [place] [address] 16457- 1452 March, Bipolar I disorder, most recent episode (or current) mixed, moderate 296.62 and Generalized anxiety disorder 300.02 [facility] [id number] [place] [address] 26255- 1307 March, [facility] [id number] [place] [address] 39980- 6627 March, [facility] [id number] [place] [address] 92732- 2546 March, Underweight 783.22 ; Hand pain, right 729.5 and Reflux gastritis 535.40 [facility] [id number] [place] [address], [place] [address]- 3042 14 Feb, 2015 [facility] [id number] [place] [address] 65690- 5246 13 Feb, 2015 [facility] [id number] [place] [address], [place] [address]- 6055 18 Jan, 2015 [facility] [id number] [place] [address] 81484- 7848 18 Jan, 2015 [facility] [id number] [place] [address], [place] [address]- 0402 16 Jan, 2015 [facility] [id number] [place] [address] 411146- 6354 16 Jan, 2015 [facility] [id number] [place] [address] 45664- 3424 Jan, [facility] [id number] [place] [address] 28641- 2661 Jan, [facility] [id number] [place] [address] 85411- 9354 05 Jan, 2015 [facility] [address] [address]- 3013 Jan, [facility] [address], [place] [address]- 8479 Jan, [facility] [address] 8595 Jan, [facility] [id number] [place] [address] 33061- 8677 Jan, [facility] [address] [address]- 2272 Jan, [facility] [id number] [place] [address] 65340- 0092 20 Dec, 2014 [facility] [place] [facility] [address] [id number] [place] [address]- 1548 20 Dec, 2014 [facility] [place] [facility] [address] [id number] [place] [address]- 2960 19 Dec, 2014 [facility] [place] [facility] [address] [facility] [id number] [place] [address]- 2178 19 Dec, 2014 [facility] [place] [facility] [address] [id number] [place] [address]- 8167 18 Dec, 2014 [facility] [place] [facility] [address] [id number] [place] [address]- 9020 17 Dec, 2014 [facility] [place] [facility] [address] [facility] [id number] [place] [address]- 7490 17 Dec, 2014 [facility] [place] [facility] [address] [facility] [id number] [place] [address]- 6662 16 Dec, 2014 [facility] [place] [facility] [address] [facility] [id number] [place] [address]- 4071 16 Dec, 2014 [facility] [place] [facility] [address] [facility] [id number] [place] [address]- 7869 05 Dec, 2014 [facility] [place] [facility] [address] [facility] [id number] [place] [address]- 1593 05 Dec, 2014 [facility] [place] [facility] [address] [facility] [id number] [place] [address]- 2548 05 Dec, 2014 [facility] [place] [facility] [address] [facility] [id number] [place] [address]- 2540 05 Dec, 2014 [facility] [place] [facility] [address] [facility] [id number] [place] [address]- 2420 04 Dec, 2014 [facility] [place] [facility] [address] [facility] [id number] [place] [address]- 2549 04 Dec, 2014 [facility] [place] [facility] [address] [facility] [id number] [place] [address]- 2544 Dec, [facility] [place] [facility] [address] [id number] [place] [address]- 3662 Dec, [facility] [place] [facility] [address] [id number] [place] [address]- 5156 Dec, [facility] [place] [facility] [address] [id number] [place] [address]- 5885 Dec, [facility] [place] [facility] [address] [id number] [place] [address]- 3963 Nov, [facility] [place] [facility] [address] [id number] [place] [address]- 7691 Nov, [facility] [place] [facility] [address] [id number] [place] [address]- 3026 Nov, [facility] [place] [facility] [address] [id number], [place] [address]- 2495 Nov, [facility] [place] [facility] [address] [id number], [place] [address]- 3637 Nov, [facility] [place] [facility] [address] [id number], [place] [address]- 1171 Nov, [facility] [place] [facility] [address] [facility] [id number] [id number] Nov, [facility] [place] [facility] [address] [id number], [place] [address]- 8472 Nov, [facility] [place] [facility] [address] [id number], [place] [address]- 6242 Nov, [facility] [place] [facility] [address] [id number] [id number] Nov, [facility] [place] [facility] [address] [id number], [place] [address]- 6708 Nov, [facility] [place] [facility] [address] [id number], [place] [address]- 7773 Nov, [facility] [place] [facility] [address] [id number] [place] [address]- 0389 31 Oct, 2014 [facility] [place] [facility] [address] [id number] [place] [address]- 0886 31 Oct, 2014 [facility] [place] [facility] [address] [id number] [place] [address]- 2901 30 Oct, 2014 [facility] [place] [facility] [address] [id number] [place] [address]- 5847 30 Oct, 2014 [facility] [place] [facility] [address] [id number] [place] [address]- 2573 29 Oct, 2014 [facility] [place] [facility] [address] [id number] [place] [address]- 7128 29 Oct, 2014 [facility] [place] [facility] [address] [id number] [place] [address]- 1314 Oct, [facility] [place] [facility] [address] [id number] [place] [address]- 8473 Oct, [facility] [place] [facility] [address] [id number] [place] [address]- 7441 Oct, [facility] [place] [facility] [address] [id number] [place] [address]- 8235 Oct, [facility] [place] [facility] [address] [id number] [place] [address]- 1936 Oct, [facility] [place] [facility] [address] [id number] [place] [address]- 5884 05 Oct, 2014 [facility] [place] [facility] [address] [id number] [place] [address]- 7604 Sep, [facility] [place] [facility] [address] [id number] [place] [address]- 7363 Sep, [facility] [place] [facility] [address] [id number] [place] [address]- 2853 Sep, [facility] [place] [facility] [address] [id number] [place] [address]- 0590 Sep, [facility] [place] [facility] [address] [id number] [place] [address]- 9049 Sep, [facility] [place] [facility] [address] [id number] [place] [address]- 1721 Sep, [facility] [place] [facility] [address] [id number] [place] [address]- 7550 Sep, [facility] [place] [facility] [address] [id number] [place] [address]- 0934 Sep, [facility] [place] [facility] [address] [id number] [place] [address]- 4044 Aug, [facility] [place] [facility] [address] [id number] [place] [address] Aug, [facility] [place] [facility] [address] [id number] [place] [address] Aug, [facility] [place] [facility] [address] [id number] [place] [address] Aug, [facility] [place] [facility] [address] [id number] [place] [address] Aug, [facility] [place] [facility] [address] [id number] [place] [address] Aug, [facility] [place] [facility] [address] [id number] [place] [address] Aug, [facility] [place] [facility] [address] [id number] [place] [address] Aug, [facility] [place] [facility] [address] [id number] [place] [address] Aug, [facility] [place] [facility] [address] [id number] [place] [address] Aug, [facility] [place] [facility] [address] [id number] [place] [address] Aug, [facility] [place] [facility] [address] [id number] [place] [address] Aug, [facility] [place] [facility] [address] [id number] [place] [address] Aug, [facility] [place] [facility] [address] [id number] [place] [address] Jul, [facility] [place] [facility] [address] [id number] [place] [address] Jul, [facility] [place] [facility] [address] [id number] [place] [address] Jul, [facility] [place] [facility] [address] [id number] [place] [address] Jul, [facility] [place] [facility] [address] [id number] [place] [address] Jun, [facility] [place] [facility] [address] [id number] [place] [address] Jun, [facility] [place] [facility] [address] [id number] [place] [address] Jun, [facility] [place] [facility] [address] [id number] [place] [address] Jun, [facility] [place] [facility] [address] [id number] [place] [address] Jun, [facility] [place] [facility] [address] [id number] [place] [address] Jun, [facility] [place] [facility] [address] [id number] [place] [address] May, [facility] [place] [facility] [address] [id number] [place] [address] May, [facility] [place] [facility] [address] [id number] [place] [address] May, [facility] [place] [facility] [address] [id number] [place] [address]34 May, [facility] [place] [facility] [address] [id number] [place] [address] Apr, [facility] [address] [id number] [place] [address] Apr, [facility] [address] [id number] [place] [address] March, [facility] [address] [id number] [place] [address] March, [facility] [address] [id number] [place] [address] March, [facility] [address] [id number] [place] [address] March, [facility] [address] [id number] [place] [address] March, [facility] [address] [id number] [place] [address] 2402 March, [facility] [address] [id number] [place] [address] Feb, [facility] [address] [id number] [place] [address] 3066 Feb, [facility] [address] [id number] [place] [address] 0568 Dec, [facility] [address] [id number] [place] [address] 6[address] Dec, [facility] [address] [id number] [place] [address] Nov, [facility] [place] [facility] [address] [id number] [place] [address] 6948 Nov, [facility] [address] [id number] [place] [address] 7724 Sep, [facility] [place] [facility] [address] [id number] [place] [address] 3440 Sep, [facility] [place] [facility] [address] [id number] [place] [address]- 0189 Sep, [facility] [place] [facility] [address] [id number] [place] [address]- 9537 Sep, [facility] [place] [facility] [address] [id number] [place] [address]- 6824 Sep, [facility] [place] [facility] [address] [id number] [place] [address]- 0286 Sep, [facility] [place] [facility] [address] [id number] [place] [address] Sep, [facility] [place] [facility] [address] [id number] [place] [address] 8995 Aug, [facility] [place] [facility] [address] [id number] [place] [address] 1259 Aug, [facility] [place] [facility] [address] [id number] [place] [address] 5501 Aug, [facility] [place] [facility] [address] [id number] [place] [address]- 5077 Aug, [facility] [place] [facility] [address] [id number], [place] [address] Aug, [facility] [place] [facility] [address] [id number], [place] [address] 40[address] Aug, [facility] [place] [facility] [address] [id number], [place] [address] 19 Jul, 2013 [facility] [place] [facility] [address] [id number] [place] [address]- 3361 19 Jul, 2013 [facility] [place] [facility] [address] [id number] [place] [address]- 6455 16 Jul, 2013 [facility] [place] [facility] [address] [id number] [place] [address] 13 Jul, 2013 [facility] [place] [facility] [address] [id number] [place] [address] 54[address] Jun, [facility] [address] [id number] [place] [address] 8098 Jun, [facility] [place] [facility] [address] [id number] [place] [address]- 1685 Jun, [facility] [place] [facility] [address] [id number] [place] [address] 0192 Jun, [facility] [place] [facility] [address] [id number] [place] [address]- 7057 Jun, [facility] [place] [facility] [address] [id number] [place] [address]- 2851 Jun, [facility] [place] [facility] [address] [id number] [place] [address]- 1485 Jun, [facility] [address] [id number] [place] [address] 9997 May, [facility] [place] [facility] [address] [id number] [place] [address] 3757 May, [facility] [place] [facility] [address] [id number] [place] [address]- 1248 May, [facility] [place] [facility] [address] [id number] [place] [address]- 4592 May, [facility] [place] [facility] [address] [id number] [place] [address] 2783 May, [facility] [place] [facility] [address] [id number] [place] [address]- 6287 May, [facility] [place] [facility] [address] [id number] [place] [address] 3740 May, [facility] [place] [facility] [address] [id number] [place] [address] 0022 Apr, [facility] [place] [facility] [address] [id number] [place] [address]- 6673 Apr, [facility] [place] [facility] [address] [id number] [place] [address]- 1653 27 Apr, 2013 [facility] [place] [facility] [address] [id number] [place] [address]- 8418 26 Apr, 2013 [facility] [place] [facility] [address] [id number] [place] [address]- 7267 20 Apr, 2013 [facility] [place] [facility] [address] [id number] [place] [address]- 4765 18 Apr, 2013 [facility] [place] [facility] [address] [id number] [place] [address]- 6137 18 Apr, 2013 [facility] [place] [facility] [address] [id number] [place] [address]- 3613 18 Apr, 2013 [facility] [place] [facility] [address] [id number] [place] [address]- 0194 17 Apr, 2013 [facility] [place] [facility] [address] [id number] [place] [address]- 9023 14 Apr, 2013 [facility] [place] [facility] [address] [id number] [place] [address]- 3168 14 Apr, 2013 [facility] [place] [facility] [address] [id number] [place] [address]- 9964 11 Apr, 2013 [facility] [place] [facility] [address] [id number] [place] [address]- 1175 10 Apr, 2013 [facility] [place] [facility] [address] [id number] [place] [address]- 8982 09 Apr, 2013 [facility] [place] [facility] [address] [id number] [place] [address]- 8592 07 Apr, 2013 [facility] [place] [facility] [address] [id number] [place] [address]- 7987 06 Apr, 2013 [facility] [place] [facility] [address] [id number] [place] [address]- 5731 06 Apr, 2013 [facility] [place] [facility] [address] [id number] [place] [address]- 8012 Apr, [facility] [address] [id number] [place] [address]- 3184 Apr, [facility] [address] [id number] [place] [address]- 4788 March, [facility] [address] [id number] [place] [address]- 1303 March, [facility] [address] [id number] [place] [address]- 6707 March, [facility] [address] [id number] [place] [address]- 7054 March, [facility] [address] [id number] [place] [address]- 7152 March, [facility] [address] [id number] [place] [address]- 9768 March, [facility] [address] [id number] [place] [address]- 7117 March, [facility] [address] [id number] [place] [address]- 4709 Feb, [facility] [address] [id number] [place] [address]- 1906 Feb, [facility] [address] [id number], [place] [address]- 1339 Jan, [facility] [place] [facility] [address] [id number], [place] [address]- 5311 18 Jan, 2013 [facility] [place] [facility] [address] [id number] [place] [address]- 8458 15 Jan, 2013 [facility] [place] [facility] [address] [id number] [place] [address]- 9609 14 Jan, 2013 [facility] [place] [facility] [address] [id number] [place] [address]- 6915 13 Jan, 2013 [facility] [place] [facility] [address] [id number] [place] [address]- 7213 12 Jan, 2013 [facility] [address] [id number] [place] [address]- 4018 11 Jan, 2013 [facility] [place] [facility] [address] [id number] [place] [address]- 3776 09 Jan, 2013 [facility] [place] [facility] [address] [id number] [place] [address]- 7011 08 Jan, 2013 [facility] [place] [facility] [address] [id number] [place] [address]- 8121 07 Jan, 2013 [facility] [place] [facility] [address] [id number] [place] [address]- 8434 06 Jan, 2013 [facility] [place] [facility] [address] [id number] [place] [address]- 5051 17 Nov, 2012 [facility] [address] [id number] [place] [address]- 4137 Oct, [facility] [address] [id number] [place] [address]- 6833 Oct, [facility] [place] [facility] [address] [id number] [place] [address]- 6350 Oct, [facility] [place] [facility] [address] [id number] [place] [address]- 2022 Oct, [facility] [place] [facility] [address] [id number] [place] [address]- 0203 30 Sep, 2012 [facility] [place] [facility] [address] [id number] [place] [address] 2544 30 Sep, 2012 [facility] [place] [facility] [address] [id number] [place] [address]- 8357 Sep, [facility] [place] [facility] [address] [id number] [place] [address] 2548 16 Sep, 2012 [facility] [place] [facility] [address] [id number] [place] [address]- 4749 Sep, [facility] [place] [facility] [address] [id number] [place] [address]- 1554 Sep, [facility] [place] [facility] [address] [id number] [place] [address]- 0505 Sep, [facility] [place] [facility] [address] [id number] [place] [address]- 3640 Sep, [facility] [place] [facility] [address] [id number] [place] [address]- 4836 Sep, [facility] [place] [facility] [address] [id number] [place] [address]- 2252 Sep, [facility] [place] [facility] [address] [id number] [place] [address]- 9466 Sep, [facility] [place] [facility] [address] [id number] [place] [address]- 8230 Aug, [facility] [place] [facility] [address] [id number] [place] [address]- 2227 Aug, [facility] [place] [facility] [address] [id number] [place] [address]- 7211 Aug, [facility] [place] [facility] [address] [id number] [place] [address]- 5863 28 Jul, 2012 [facility] [place] [facility] [address] [id number] [place] [address]- 1936 25 Jul, 2012 [facility] [place] [facility] [address] [id number] [place] [address]- 9989 19 Jul, 2012 [facility] [place] [facility] [address] [id number] [place] [address]- 3182 17 Jul, 2012 [facility] [place] [facility] [address] [id number] [place] [address]- 2135 20 Jun, 2012 [facility] [place] [facility] [address] [id number] [place] [address]- 7003 16 Jun, 2012 [facility] [place] [facility] [address] [id number] [place] [address]- 5771 15 Jun, 2012 [facility] [place] [facility] [address] [id number] [place] [address]- 0833 15 Jun, 2012 [facility] [place] [facility] [address] [id number] [place] [address]- 3666 13 Jun, 2012 [facility] [place] [facility] [address] [id number] [place] [address]- 0322 March, [facility] [place] [facility] [address] [id number] [place] [address]- 0502 04 Feb, 2012 [facility] [place] [facility] [address] [id number] [place] [address]- 5840 28 Jan, 2012 [facility] [place] [facility] [address] [id number] [place] [address]- 0737 27 Jan, 2012 [facility] [place] [facility] [address] [id number] [place] [address]- 7390 Jan, [facility] [place] [facility] [address] [id number] [place] [address]- 8961 14 Jan, 2012 [facility] [place] [facility] [address] [id number] [place] [address]- 1647 14 Jan, 2012 [facility] [place] [facility] [address] [id number] [place] [address]- 9935 14 Jan, 2012 [facility] [place] [facility] [address] [id number] [place] [address]- 9268 28 Dec, 2011 [facility] [place] [facility] [address] [id number] [place] [address]- 4203 27 Dec, 2011 [facility] [place] [facility] [address] [id number] [place] [address]- 9910 23 Dec, 2011 [facility] [place] [facility] [address] [id number] [place] [address]- 4632 21 Dec, 2011 [facility] [place] [facility] [address] [id number] [place] [address]- 8917 20 Dec, 2011 [facility] [place] [facility] [address], [place] [address] 7610 Dec, [facility] [address], [place] [address]- 2343 Dec, [facility] [address], [place] [address]- 9447 16 Dec, 2011 [facility] [address], [place] [address]- 7807 Nov, [facility] [address], [place] [address]- 8343 Oct, [facility] [address], [place] [address]- 8899 Sep, [facility] [address], [place] [address]- 7077 Sep, [facility] [address], [place] [address]- 5575 Sep, [facility] [address], [place] [address]- 8662 Sep, [facility] [address], [place] [address]- 6610 Sep, [facility] [address], [place] [address]- 1045 Sep, [facility] [address], [place] [address]- 4067 Jan, [facility] [address] [id number], [place] [address]- 3096 Apr, IMMUNIZATIONS No Known Immunizations SOCIAL HISTORY Never Assessed REASON FOR VISIT refill PLAN OF CARE VITAL SIGNS MEDICATIONS Unknown Medications RESULTS No Results PROCEDURES No Known procedures INSTRUCTIONS MEDICATIONS ADMINISTERED No Known Medications MEDICAL (GENERAL) HISTORY Type Description Date Medical History bipolar disorder Medical History PTSD Medical History endometriosis Medical History PCOS (Polycystic Ovary Syndrome) Medical History Seizures Medical History Endometriosis Medical History History of Self Harm Surgical History laparoscopy for endometriosis 2009 Surgical History tonsillectomy Surgical History partial hysterectomy 12/2016 Surgical History Left ovary removed 12/2016 Hospitalization History [facility] x4 2009 most recent admission Hospitalization History [facility]; overdose 2010 Hospitalization History child 11/29/2016
[2018-04-27] MEDS ORDERED: METH4TAB PO (19:06)
--- NOTE | 2018-04-27 19:06 | ED EENT ---
History of Present Illness General Stated Complaint: JAW AND BACK PAIN Source: patient Exam Limitations: no limitations History of Present Illness Date Seen by Provider: Apr 27, 2018 Time Seen by Provider: 19:03 Initial Comments To ER with right lateral jaw pain for the past 3 days since she fell while tripping over one of her children's toys. She did not strike her face neck or jaw on anything. She is not sure of the fall is related to this pain or not. She denies any tooth or dental pain. Timing/Duration: gradual Severity: moderate Location: dental Allergies and Home Medications Allergies Coded Allergies: Penicillins (Unverified Allergy, Mild, PT ABLE TO TAKE ANCEF, 03/26/14) diclofenac (Unverified Allergy, Unknown, 01/21/15) divalproex sodium (Verified Allergy, Unknown, 08/26/15) Home Medications Clonazepam 0.5 Mg Tablet, 0.5 MG PO TID, (Reported) Lamotrigine 150 Mg Tablet, 150 MG PO DAILY, (Reported) Methylprednisolone 4 Mg Tab.ds.pk, 4 MG PO UD Prescribed by: MIRANDA LOCO on 01/09/1850 Mirtazapine 30 Mg Tablet, 30 MG PO HS, (Reported) Ondansetron 4 Mg Tab.rapdis, 4 MG PO Q4H Prescribed by: MIRANDA LOCO on 01/09/1850 Orphenadrine Citrate 100 Mg Tablet.er, 100 MG PO BID FOR MUSCLE SPASMS Prescribed by: MIRANDA LOCO on 01/09/1850 Patient Home Medication List Home Medication List Reviewed: Yes Review of Systems Constitutional: see HPI Eyes: No Symptoms Reported Ears: No Symptoms Reported Nose: no symptoms reported Mouth: see HPI Throat: no symptoms reported Respiratory: no symptoms reported Cardiovascular: no symptoms reported Musculoskeletal: no symptoms reported Past Ptrfwtr-Gdyrud-Nditos Hx Patient Social History Type Used: Cigarettes 2nd Hand Smoke Exposure: Yes Recent Foreign Travel: No Contact w/Someone Who Travel: No Recent Hopitalizations: No Immunizations Up To Date Tetanus Booster (TDap): Less than 5yrs PED Vaccines UTD: Yes Date of Influenza Vaccine: Aug 30, 2017 Seasonal Allergies Seasonal Allergies: No Past Medical History Surgeries: Yes (LAPAROTOMY) Abdominal, Adenoidectomy, Hysterectomy, Oophorectomy, Tonsillectomy Respiratory: Yes Asthma Cardiac: Yes (Hx. 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 Sexually Transmitted Disease: No HIV/AIDS: No Genitourinary: No Gastrointestinal: No Musculoskeletal: Yes Degenerate Disk Disease, Arthritis, Back Injury, Scoliosis, Chronic Back Pain Endocrine: No HEENT: No Cancer: No Psychosocial: Yes Anxiety, Bipolar, Depression Integumentary: No Blood Disorders: No Adverse Reaction/Blood Tranf: No Family Medical History Family history: Hypertension (mother, MGM, and PGM) Heart disease (mother and father) History of - anemia (family Hx of blood transfusions) Infertile Kidney disease (MGM) No Pertinent Family Hx Physical Exam General Appearance: WD/WN, no apparent distress Eyes: bilateral eye normal inspection, bilateral eye PERRL, bilateral eye EOMI Ears: bilateral ear auricle normal, bilateral ear canal normal, bilateral ear TM normal Mouth/Throat: other (she complains of tenderness to palpation over the temporomandibular joint and parotid region. However, there is no swelling or erythema of the right side of her face to suggest parotid infection. Pain is worsened with opening and closing her mouth.) Neck: non-tender, full range of motion Gastrointestinal: non tender, soft Neurologic/Psychiatric: alert, normal mood/affect, oriented x 3 Skin: normal color, warm/dry Departure Impression Primary Impression: Temporomandibular joint pain Disposition: 01 HOME, SELF-CARE Condition: Stable Departure-Patient Inst. Decision time for Depature: 19:05 Referrals: [facility] (PCP/Family) Primary Care Physician Patient Instructions: Temporomandibular Joint (TMJ) Disorders Add. Discharge Instructions: 1. Return to ER for any concerns 2. Medications as directed. 3. Follow up with your doctor next week for recheck. Add tylenol to the steroid dose. Scripts Methylprednisolone (Medrol) 4 Mg Tab.ds.pk 4 MG PO UD, #1 PKG Prov: ISMAEL SOL APRN 04/27/18 ISMAEL SOL APRN Apr 27, 2018 19:06
--- OUTSIDE RECORDS SUMMARY | 2018-04-27 19:12 | XMS REPORT | Continuity of Care Document ---
Author Author [facility] Address Unknown Phone Unavailable Allergies Active Description [...] Drug Allergy N/A N/A 05/09/2013 Yes Penicillins [id number] Drug Allergy Mild PT ABLE TO TAKE 03/26/2014 Yes Depakote 250 mg tablet,delayed release (DR/EC) Drug Allergy N/A N/A 12/18 Yes diclofenac [id number] Drug Allergy Unknown N/A 01/21/2015 Yes divalproex sodium [id number] Drug Allergy Unknown N/A 08/26/2015 Medications There [...] BAKER J 296.90 Mood Disorder 06/20/2008 GARTON CARGO SUPERVISOR, JASON D 296.90 Mood Disorder 06/20/2008 GARMYRA CARGO SUPERVISORJASON Kirkpatrick D 296.90 Mood Disorder 06/20/2008 GARTON CARGO SUPERVISOR, JASON D 296.90 Mood Disorder 06/20/2008 WOLF JAMA MD 296.90 Mood Disorder 06/20/2008 ROEL CARGO SUPERVISOR, GODWIN 296.90 Mood Disorder 06/20/2008 MADL CARGO SUPERVISOR, FLO L 296.90 Mood Disorder 06/20/2008 ROEL CARGO SUPERVISOR, GODWIN 296.90 Mood Disorder 06/20/2008 MADL CARGO SUPERVISOR, FLO L 296.90 Mood Disorder 06/20/2008 ROEL CARGO SUPERVISOR, GODWIN 296.90 Mood Disorder 06/20/2008 ROEL CARGO SUPERVISOR, GODWIN 296.90 Mood Disorder 06/20/2008 MADL CARGO SUPERVISOR, FLO L 296.90 Mood Disorder 06/20/2008 MADL CARGO SUPERVISOR, FLO L 296.90 Mood Disorder 06/20/2008 ROEL CARGO SUPERVISOR, GODWIN 296.90 Mood Disorder 06/20/2008 SONNY CARGO SUPERVISOR, ELIAS A 296.90 Mood Disorder 06/20/2008 ANGELA CS, DEMOND R 296.90 Mood Disorder 06/20/2008 MADL CARGO SUPERVISOR, FLO L 296.90 Mood Disorder 06/20/2008 NUSRAT BAKER JOSE 296.90 Mood Disorder 06/20/2008 ANGELA LSCS, DEMOND R 296.90 Mood Disorder 06/20/2008 ANGELA LSCS, DEMOND R 296.90 Mood Disorder 06/20/2008 ROEL CARGO SUPERVISOR, GODWIN 296.90 Mood Disorder 06/20/2008 MANUEL DOMARALA K 296.90 Mood Disorder 06/20/2008 ROEL CARGO SUPERVISOR, GODWIN 296.90 Mood Disorder 06/20/2008 ROEL CARGO SUPERVISOR, GODWIN 296.90 Mood Disorder 10/03/2008 WOLF JAMA [...] MD 465.9 Upper Respiratory Infection 10/03/2008 ROEL CARGO SUPERVISOR, GODWIN 465.9 Upper Respiratory Infection 10/03/2008 MADTima CARGO SUPERVISOR, FLO L 465.9 Upper Respiratory Infection 10/03/2008 ROEL CARGO SUPERVISOR, GODWIN 465.9 Upper Respiratory Infection 10/03/2008 MADL CARGO SUPERVISOR, FLO L 465.9 Upper Respiratory Infection 10/03/2008 ROEL CARGO SUPERVISOR, GODWIN 465.9 Upper Respiratory Infection 10/03/2008 ROEL CARGO SUPERVISOR, GODWIN 465.9 Upper Respiratory Infection 10/03/2008 LISA MENG, FLO L 465.9 Upper Respiratory Infection 10/03/2008 MADL CARGO SUPERVISOR, FLO L 465.9 Upper Respiratory Infection 10/03/2008 ROEL CARGO SUPERVISOR, GODWIN 465.9 Upper Respiratory Infection 10/03/2008 SONNY CARGO SUPERVISOR, ELIAS A 465.9 Upper Respiratory Infection 10/03/2008 [facility], DEMOND R 465.9 Upper Respiratory Infection 10/03/2008 MADL CARGO SUPERVISOR, FLO L 465.9 Upper Respiratory Infection 10/03/2008 NUSRAT JENKINSS, JOSE 465.9 Upper Respiratory Infection 10/03/2008 [facility], DEMOND R 465.9 Upper Respiratory Infection 10/03/2008 [facility], DEMOND R 465.9 Upper Respiratory Infection 10/03/2008 ROEL CARGO SUPERVISOR, GODWIN 465.9 Upper Respiratory Infection 10/03/2008 NICOLA MANUEL DO K 465.9 Upper Respiratory Infection 10/03/2008 ROEL CARGO SUPERVISOR, GODWIN 465.9 Upper Respiratory Infection 10/03/2008 ROEL CARGO SUPERVISOR, GODWIN 465.9 Upper Respiratory Infection 11/27/2008 WOLF [...] MD V58.69 Medication High Risk 11/27/2008 ROEL CARGO SUPERVISOR, GODWIN V58.69 Medication High Risk 11/27/2008 MADL CARGO SUPERVISOR, FLO L V58.69 Medication High Risk 11/27/2008 ROEL CARGO SUPERVISOR, GODWIN V58.69 Medication High Risk 11/27/2008 MADL CARGO SUPERVISOR, LFO L V58.69 Medication High Risk 11/27/2008 ROEL CARGO SUPERVISOR, GODWIN V58.69 Medication High Risk 11/27/2008 ROEL CARGO SUPERVISOR, GODWIN V58.69 Medication High Risk 11/27/2008 MADL CARGO SUPERVISOR, FLO L V58.69 Medication High Risk 11/27/2008 MADL CARGO SUPERVISOR, FLO L V58.69 Medication High Risk 11/27/2008 ROEL CARGO SUPERVISOR, GODWIN V58.69 Medication High Risk 11/27/2008 CARMINA DENNIS APRNIDI Maddy V58.69 Medication High Risk 11/27/2008 [facility], DEMOND R V58.69 Medication High Risk 11/27/2008 MADL CARGO SUPERVISOR, FLO L V58.69 Medication High Risk 11/27/2008 SILVERIO DDSSALVADORW V58.69 Medication High Risk 11/27/2008 [facility], DEMOND R V58.69 Medication High Risk 11/27/2008 [facility], DEMOND R V58.69 Medication High Risk 11/27/2008 ROEL CARGO SUPERVISOR, GODWIN V58.69 Medication High Risk 11/27/2008 MAR BLANTONNICOLA V58.69 Medication High Risk 11/27/2008 ROEL CARGO SUPERVISOR, GODWIN V58.69 Medication High Risk 11/27/2008 ROEL CARGO SUPERVISOR, GODWIN V58.69 Medication High Risk 07/01/2009 WOLF [...] JAMA MD 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 07/01/2009 ROEL CARGO SUPERVISOR, GODWIN 296.32 MO DEPRESSIVE RECURRENT MODERATE 07/01/2009 ROEL CARGO SUPERVISOR, GODWIN 300.00 AN ANXIETY UNSPEC 07/01/2009 ROEL CARGO SUPERVISOR, GODWIN 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 07/01/2009 MADL CARGO SUPERVISOR, FLO L 296.32 MO DEPRESSIVE RECURRENT MODERATE 07/01/2009 MADL CARGO SUPERVISOR, FLO L 300.00 AN ANXIETY UNSPEC 07/01/2009 MADL CARGO SUPERVISOR, FLO L 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 07/01/2009 ROEL CARGO SUPERVISOR, GODWIN 296.32 MO DEPRESSIVE RECURRENT MODERATE 07/01/2009 ROEL CARGO SUPERVISOR, GODWIN 300.00 AN ANXIETY UNSPEC 07/01/2009 ROEL CARGO SUPERVISOR, GODWIN 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 07/01/2009 MADL CARGO SUPERVISOR, FLO L 296.32 MO DEPRESSIVE RECURRENT MODERATE 07/01/2009 MADL CARGO SUPERVISOR, FLO L 300.00 AN ANXIETY UNSPEC 07/01/2009 MADL CARGO SUPERVISOR, FLO L 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 07/01/2009 ROEL CARGO SUPERVISOR, GODWIN 296.32 MO DEPRESSIVE RECURRENT MODERATE 07/01/2009 ROEL CARGO SUPERVISOR, GODWIN 300.00 AN ANXIETY UNSPEC 07/01/2009 ROEL CARGO SUPERVISOR, GODWIN 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 07/01/2009 ROEL CARGO SUPERVISOR, GODWIN 296.32 MO DEPRESSIVE RECURRENT MODERATE 07/01/2009 ROEL CARGO SUPERVISOR, GODWIN 300.00 AN ANXIETY UNSPEC 07/01/2009 ROEL CARGO SUPERVISOR, GODWIN 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 07/01/2009 MADL CARGO SUPERVISOR, FLO L 296.32 MO DEPRESSIVE RECURRENT MODERATE 07/01/2009 MADL CARGO SUPERVISOR, FLO L 300.00 AN ANXIETY UNSPEC 07/01/2009 FLO GONZALEZ APRN L 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 07/01/2009 MADROSITA Alfred APRNA L 296.32 MO DEPRESSIVE RECURRENT MODERATE 07/01/2009 MADL ROSITA MENGA L 300.00 AN ANXIETY UNSPEC 07/01/2009 ROSITA GONZALEZ APRNA L 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 07/01/2009 ROEL CARGO SUPERVISOR, GODWIN 296.32 MO DEPRESSIVE RECURRENT MODERATE 07/01/2009 ROEL CARGO SUPERVISOR, GODWIN 300.00 AN ANXIETY UNSPEC 07/01/2009 ROEL CARGO SUPERVISOR, GODWIN 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 07/01/2009 SONNY CARGO SUPERVISOR, ELIAS A 296.32 MO DEPRESSIVE RECURRENT MODERATE 07/01/2009 SONNY CARGO SUPERVISOR, ELIAS A 300.00 AN ANXIETY UNSPEC 07/01/2009 SONNY CARGO SUPERVISOR, ELIAS A 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 07/01/2009 [facility], DEMOND R 296.32 MO DEPRESSIVE RECURRENT MODERATE 07/01/2009 [facility], DEMOND R 300.00 AN ANXIETY UNSPEC 07/01/2009 [facility], DEMOND R 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 07/01/2009 FLO GONZALEZ APRN L 296.32 MO DEPRESSIVE RECURRENT MODERATE 07/01/2009 FLO GONZALEZ APRN L 300.00 AN ANXIETY UNSPEC 07/01/2009 ROSITA GONZALEZ APRNA L 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 07/01/2009 SILVERIO DDS, JOSE 296.32 MO DEPRESSIVE RECURRENT MODERATE 07/01/2009 SILVERIO DDS, JOSE 300.00 AN ANXIETY UNSPEC 07/01/2009 SILVERIO DDS, JOSE 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 07/01/2009 [facility] 296.32 MO DEPRESSIVE RECURRENT MODERATE 07/01/2009 [facility] DEM[facility] R 300.00 AN ANXIETY UNSPEC 07/01/2009 ANGELA CS, DEMOND R 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 07/01/2009 [facility] DEM[facility] R 296.32 MO DEPRESSIVE RECURRENT MODERATE 07/01/2009 [facility], DEMOND R 300.00 AN ANXIETY UNSPEC 07/01/2009 [facility] DEM[facility] R 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 07/01/2009 ROEL CARGO SUPERVISOR, GODWIN 296.32 MO DEPRESSIVE RECURRENT MODERATE 07/01/2009 ROEL CARGO SUPERVISOR, GODWIN 300.00 AN ANXIETY UNSPEC 07/01/2009 ROEL CARGO SUPERVISOR, GODWIN 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 07/01/2009 NICOLA MANUEL DO K 296.32 MO DEPRESSIVE RECURRENT MODERATE 07/01/2009 NICOLA MANUEL DO K 300.00 AN ANXIETY UNSPEC 07/01/2009 NICOLA MANUEL DO K 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 07/01/2009 ROEL CARGO SUPERVISOR, GODWIN 296.32 MO DEPRESSIVE RECURRENT MODERATE 07/01/2009 ROEL CARGO SUPERVISOR, GODWIN 300.00 AN ANXIETY UNSPEC 07/01/2009 ROEL CARGO SUPERVISOR, GODWIN 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 07/01/2009 ROEL CARGO SUPERVISOR, GODWIN 296.32 MO DEPRESSIVE RECURRENT MODERATE 07/01/2009 ROEL CARGO SUPERVISOR, GODWIN 300.00 AN ANXIETY UNSPEC 07/01/2009 ROEL CARGO SUPERVISOR, GODWIN 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 07/16/2009 WOLF JAMA [...] AN PANIC DIS W/O AGORA 07/16/2009 ROEL CARGO SUPERVISOR, GODWIN 300.01 AN PANIC DIS W/O AGORA 07/16/2009 ROEL TAQUERIA GODWIN 300.01 AN PANIC DIS W/O AGORA 07/16/2009 MADL CARGO SUPERVISOR, FLO L 300.01 AN PANIC DIS W/O AGORA 07/16/2009 MADL CARGO SUPERVISOR, FLO L 300.01 AN PANIC DIS W/O AGORA 07/16/2009 ROEL CARGO SUPERVISOR, GODWIN 300.01 AN PANIC DIS W/O AGORA 07/16/2009 SONNYKENJI MENG ELIAS A 300.01 AN PANIC DIS W/O AGORA 07/16/2009 ANGELA [facility], DEMOND Fernando 300.01 AN PANIC DIS W/O AGORA 07/16/2009 MADL CARGO SUPERVISOR, FLO L 300.01 AN PANIC DIS W/O AGORA 07/16/2009 JOSE SILVERIO DDS 300.01 AN PANIC DIS W/O AGORA 07/16/2009 [facility], DEMOND R 300.01 AN PANIC DIS W/O AGORA 07/16/2009 [facility], DEMOND R 300.01 AN PANIC DIS W/O AGORA 07/16/2009 ROEL CARGO SUPERVISOR, GODWIN 300.01 AN PANIC DIS W/O AGORA 07/16/2009 NICOLA MANUEL DO K 300.01 AN PANIC DIS W/O AGORA 07/16/2009 ROEL CARGO SUPERVISOR, GODWIN 300.01 AN PANIC DIS W/O AGORA 07/16/2009 ROEL CARGO SUPERVISOR, GODWIN 300.01 AN PANIC DIS W/O AGORA [...] Kirkpatrick 307.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 07/25/2009 DALE CARGO SUPERVISOR, JASON Steel 307.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 07/25/2009 GARTON CARGO SUPERVISOR, JASON Steel 307.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 07/25/2009 WOLF JAMA MD 307.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 07/25/2009 ROEL CARGO SUPERVISOR, GODWIN 307.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 07/25/2009 MADL CARGO SUPERVISOR, FLO L 307.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 07/25/2009 ROEL CARGO SUPERVISOR, GODWIN 307.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 07/25/2009 MADL CARGO SUPERVISOR, FLO L 307.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 07/25/2009 ROEL CARGO SUPERVISOR, GODWIN 307.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 07/25/2009 ROEL CARGO SUPERVISOR, GODWIN 307.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 07/25/2009 MADL CARGO SUPERVISOR, FLO L 307.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 07/25/2009 MADL CARGO SUPERVISOR, FLO L 307.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 07/25/2009 ROEL CARGO SUPERVISOR, GODWIN 307.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 07/25/2009 SONNY CARGO SUPERVISOR, ELIAS A 307.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 07/25/2009 [facility], DEMOND R 307.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 07/25/2009 MADL CARGO SUPERVISOR, FLO L 307.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 07/25/2009 JOSE SILVERIO DDS 307.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 07/25/2009 [facility], DEMOND R 307.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 07/25/2009 [facility], DEMOND R 307.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 07/25/2009 ROEL CARGO SUPERVISOR, GODWIN 307.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 07/25/2009 NICOLA MANUEL DO 307.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 07/25/2009 ROEL CARGO SUPERVISOR, GODWIN 307.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 07/25/2009 ROEL CARGO SUPERVISOR, GODWIN 307.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 12/17/2009 WOLF [...] MD 311 DEPRESSIVE DISORDER NOS 12/17/2009 ROEL CARGO SUPERVISOR, GODWIN 311 DEPRESSIVE DISORDER NOS 12/17/2009 MADL CARGO SUPERVISOR, FLO L 311 DEPRESSIVE DISORDER NOS 12/17/2009 ROEL CARGO SUPERVISOR, GODWIN 311 DEPRESSIVE DISORDER NOS 12/17/2009 MADL CARGO SUPERVISOR, FLO L 311 DEPRESSIVE DISORDER NOS 12/17/2009 ROEL CARGO SUPERVISOR, GODWIN 311 DEPRESSIVE DISORDER NOS 12/17/2009 ROEL CARGO SUPERVISOR, GODWIN 311 DEPRESSIVE DISORDER NOS 12/17/2009 MADL CARGO SUPERVISOR, FLO L 311 DEPRESSIVE DISORDER NOS 12/17/2009 MADL CARGO SUPERVISOR, FLO L 311 DEPRESSIVE DISORDER NOS 12/17/2009 OREL CARGO SUPERVISOR, GODWIN 311 DEPRESSIVE DISORDER NOS 12/17/2009 SONNY CARGO SUPERVISOR, ELIAS A 311 DEPRESSIVE DISORDER NOS 12/17/2009 [facility], DEMOND R 311 DEPRESSIVE DISORDER NOS 12/17/2009 LISA MENGFLO 311 DEPRESSIVE DISORDER NOS 12/17/2009 JOSE SILVERIO DDS 311 DEPRESSIVE DISORDER NOS 12/17/2009 [facility], DEMOND R 311 DEPRESSIVE DISORDER NOS 12/17/2009 [facility], DEMOND R 311 DEPRESSIVE DISORDER NOS 12/17/2009 ROEL CARGO SUPERVISOR, GODWIN 311 DEPRESSIVE DISORDER NOS 12/17/2009 NICOLA MANUEL DO 311 DEPRESSIVE DISORDER NOS 12/17/2009 ROEL CARGO SUPERVISOR, GODWIN 311 DEPRESSIVE DISORDER NOS 12/17/2009 ROEL CARGO SUPERVISOR, GODWIN 311 DEPRESSIVE DISORDER NOS 05/06/2010 Ot 620.2 05/06/2010 Ot 789.04 05/13/2010 EVITA JONES, WOLF V72.31 Chopping Machine Operator Exam, Routine 05/13/2010 WOLF JAMA MD V72.31 Chopping Machine Operator Exam, Routine 05/13/2010 V72.31 Chopping Machine Operator Exam, Routine 05/13/2010 NICOLA MANUEL DO V72.31 Chopping Machine Operator Exam, Routine 05/13/2010 JASON SOLANO DO V72.31 Chopping Machine Operator Exam, Routine 05/13/2010 V72.31 Chopping Machine Operator Exam, Routine 05/13/2010 V72.31 Chopping Machine Operator Exam, Routine 05/13/2010 V72.31 Chopping Machine Operator Exam, Routine 05/13/2010 V72.31 Chopping Machine Operator Exam, Routine 05/13/2010 V72.31 Chopping Machine Operator Exam, Routine 05/13/2010 V72.31 Chopping Machine Operator Exam, Routine 05/13/2010 V72.31 Chopping Machine Operator Exam, Routine 05/13/2010 V72.31 Chopping Machine Operator Exam, Routine 05/13/2010 V72.31 Chopping Machine Operator Exam, Routine 05/13/2010 V72.31 Chopping Machine Operator Exam, Routine 05/13/2010 V72.31 Chopping Machine Operator Exam, Routine 05/13/2010 NICOLA MANUEL DO V72.31 Chopping Machine Operator Exam, Routine 05/13/2010 JASON HUNTER APRN V72.31 Chopping Machine Operator Exam, Routine 05/13/2010 WOLF JAMA MD V72.31 Chopping Machine Operator Exam, Routine 05/13/2010 NICOLA MANUEL DO V72.31 Chopping Machine Operator Exam, Routine 05/13/2010 KELY FRIEDMAN DDS V72.31 Chopping Machine Operator Exam, Routine 05/13/2010 JASNO HUNTER APRN V72.31 Chopping Machine Operator Exam, Routine 05/13/2010 JASON HUNTER APRN V72.31 Chopping Machine Operator Exam, Routine 05/13/2010 DALE MENG, JASON Steel V72.31 Chopping Machine Operator Exam, Routine 05/13/2010 EVITA JONES, WOLF V72.31 Chopping Machine Operator Exam, Routine 05/13/2010 ROEL CARGO SUPERVISOR, GODWIN V72.31 Chopping Machine Operator Exam, Routine 05/13/2010 MADL CARGO SUPERVISOR, FLO L V72.31 Chopping Machine Operator Exam, Routine 05/13/2010 ROEL CARGO SUPERVISOR, GODWIN V72.31 Chopping Machine Operator Exam, Routine 05/13/2010 MADL CARGO SUPERVISOR, FLO L V72.31 Chopping Machine Operator Exam, Routine 05/13/2010 ROEL CARGO SUPERVISOR, GODWIN V72.31 Chopping Machine Operator Exam, Routine 05/13/2010 ROEL CARGO SUPERVISOR, GODWIN V72.31 Chopping Machine Operator Exam, Routine 05/13/2010 MADL CARGO SUPERVISOR, FLO L V72.31 Chopping Machine Operator Exam, Routine 05/13/2010 MADL CARGO SUPERVISOR, FLO L V72.31 Chopping Machine Operator Exam, Routine 05/13/2010 ROEL CARGO SUPERVISOR, GODWIN V72.31 Chopping Machine Operator Exam, Routine 05/13/2010 SONNY MENG, ELIAS Castañeda V72.31 Chopping Machine Operator Exam, Routine 05/13/2010 [facility], DEMOND R V72.31 Chopping Machine Operator Exam, Routine 05/13/2010 MADL CARGO SUPERVISOR, FLO L V72.31 Chopping Machine Operator Exam, Routine 05/13/2010 JOSE SILVERIO DDS V72.31 Chopping Machine Operator Exam, Routine 05/13/2010 [facility], DEMOND R V72.31 Chopping Machine Operator Exam, Routine 05/13/2010 [facility], DEMOND R V72.31 Chopping Machine Operator Exam, Routine 05/13/2010 ROEL CARGO SUPERVISOR, GODWIN V72.31 Chopping Machine Operator Exam, Routine 05/13/2010 NICOLA MANUEL DO V72.31 Chopping Machine Operator Exam, Routine 05/13/2010 ROEL CARGO SUPERVISOR, GODWIN V72.31 Chopping Machine Operator Exam, Routine 05/13/2010 ROEL CARGO SUPERVISOR, GODWIN V72.31 Chopping Machine Operator Exam, Routine 05/26/2010 Ot 526.9 05/26/2010 Ot [...] ROEL MENG GODWIN 276.8 Hypopotassemia 09/29/2011 LISA CARGO SUPERVISOR, FLO L 276.8 Hypopotassemia 09/29/2011 ROEL CARGO SUPERVISOR, GODWIN 276.8 Hypopotassemia 09/29/2011 ROEL MENG, GODWIN 276.8 Hypopotassemia 09/29/2011 LISA MENG, FLO L 276.8 Hypopotassemia 09/29/2011 LISA MENG, FLO L 276.8 Hypopotassemia 09/29/2011 ROEL MENG GODWIN 276.8 Hypopotassemia 09/29/2011 ELIAS DENNIS APRN A 276.8 Hypopotassemia 09/29/2011 [facility], DEMOND R 276.8 Hypopotassemia 09/29/2011 LISA TAQUERIA FLO Alfred 276.8 Hypopotassemia 09/29/2011 NUSRAT ALICESJOSE 276.8 Hypopotassemia 09/29/2011 [facility], DEMOND R 276.8 Hypopotassemia 09/29/2011 [facility], DEMOND R 276.8 Hypopotassemia 09/29/2011 ROEL CARGO SUPERVISOR, GODWIN 276.8 Hypopotassemia 09/29/2011 NICOLA MANUEL DO 276.8 Hypopotassemia 09/29/2011 ROEL CARGO SUPERVISOR, GODWIN 276.8 Hypopotassemia 09/29/2011 ROEL CARGO SUPERVISOR, GODWIN 276.8 Hypopotassemia 12/13/2011 WOLF JAMA MD [...] Unspecified Disease Of The Jaws 12/13/2011 ROEL CARGO SUPERVISOR, GODWIN 526.9 Unspecified Disease Of The Jaws 12/13/2011 MADL TAQUERIA, FLO L 526.9 Unspecified Disease Of The Jaws 12/13/2011 ROEL CARGO SUPERVISOR, GODWIN 526.9 Unspecified Disease Of The Jaws 12/13/2011 MADL CARGO SUPERVISOR, FLO L 526.9 Unspecified Disease Of The Jaws 12/13/2011 ROEL CARGO SUPERVISOR, GODWIN 526.9 Unspecified Disease Of The Jaws 12/13/2011 ROEL CARGO SUPERVISOR, GODWIN 526.9 Unspecified Disease Of The Jaws 12/13/2011 MADL CARGO SUPERVISOR, FLO L 526.9 Unspecified Disease Of The Jaws 12/13/2011 MADL CARGO SUPERVISOR, FLO L 526.9 Unspecified Disease Of The Jaws 12/13/2011 ROEL CARGO SUPERVISOR, GODWIN 526.9 Unspecified Disease Of The Jaws 12/13/2011 ELIAS DENNIS APRN 526.9 Unspecified Disease Of The Jaws 12/13/2011 ANGELA DEMOND CHOUDHURY 526.9 Unspecified Disease Of The Jaws 12/13/2011 MADL CARGO SUPERVISOR, FLO L 526.9 Unspecified Disease Of The Jaws 12/13/2011 JOSE SILVERIO DDS 526.9 Unspecified Disease Of The Jaws 12/13/2011 [facility], DEMOND R 526.9 Unspecified Disease Of The Jaws 12/13/2011 [facility], DEMOND R 526.9 Unspecified Disease Of The Jaws 12/13/2011 ROEL CARGO SUPERVISOR, GODWIN 526.9 Unspecified Disease Of The Jaws 12/13/2011 NICOLA MANUEL DO 526.9 Unspecified Disease Of The Jaws 12/13/2011 ROEL CARGO SUPERVISOR, GODWIN 526.9 Unspecified Disease Of The Jaws 12/13/2011 ROEL CARGO SUPERVISOR, GODWIN 526.9 Unspecified Disease Of The Jaws [...] APRN 427.89 Other Specified Cardiac Dysrhythmias 12/29/2011 JASNO HUNTER APRN V25.9 Contraception Management 12/29/2011 JASON [...] Cervical Cancer Screening (pap Smear) 12/29/2011 FLO GONZLAEZ APRN L 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 12/29/2011 NARAYAN GONZALEZ APRNWNYA L 427.89 Other Specified Cardiac Dysrhythmias 12/29/2011 NARAYAN GONZALEZ APRNWNYA L V25.9 Contraception Management 12/29/2011 MADL CARGO SUPERVISOR, FLO L V76.2 Cervical Cancer Screening (pap Smear) 12/29/2011 ROEL CARGO SUPERVISOR, GODWIN 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 12/29/2011 ROEL CARGO SUPERVISOR, GODWIN 427.89 Other Specified Cardiac Dysrhythmias 12/29/2011 ROEL CARGO SUPERVISOR, GODWIN V25.9 Contraception Management 12/29/2011 ROEL CARGO SUPERVISOR, GODWIN V76.2 Cervical Cancer Screening (pap Smear) 12/29/2011 MADL CARGO SUPERVISOR, FLO L 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 12/29/2011 MADL CARGO SUPERVISOR, FLO L 427.89 Other Specified Cardiac Dysrhythmias 12/29/2011 MADL CARGO SUPERVISOR, FLO L V25.9 Contraception Management 12/29/2011 MADL CARGO SUPERVISOR, FLO L V76.2 Cervical Cancer Screening (pap Smear) 12/29/2011 ROEL CARGO SUPERVISOR, GODWIN 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 12/29/2011 ROEL CARGO SUPERVISOR, GODWIN 427.89 Other Specified Cardiac Dysrhythmias 12/29/2011 ROEL CARGO SUPERVISOR, GODWIN V25.9 Contraception Management 12/29/2011 ROEL CARGO SUPERVISOR, GODIWN V76.2 Cervical Cancer Screening (pap Smear) 12/29/2011 ROEL CARGO SUPERVISOR, GODWIN 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 12/29/2011 ROEL CARGO SUPERVISOR, GODWIN 427.89 Other Specified Cardiac Dysrhythmias 12/29/2011 ROEL CARGO SUPERVISOR, GODWIN V25.9 Contraception Management 12/29/2011 ROEL CARGO SUPERVISOR, GODWIN V76.2 Cervical Cancer Screening (pap Smear) 12/29/2011 MADL CARGO SUPERVISOR, FLO L 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 12/29/2011 MADL CARGO SUPERVISOR, FLO L 427.89 Other Specified Cardiac Dysrhythmias 12/29/2011 MADL CARGO SUPERVISOR, FLO L V25.9 Contraception Management 12/29/2011 MADL CARGO SUPERVISOR, FLO L V76.2 Cervical Cancer Screening (pap Smear) 12/29/2011 MADL CARGO SUPERVISOR, FLO L 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 12/29/2011 MADL CARGO SUPERVISOR, FLO L 427.89 Other Specified Cardiac Dysrhythmias 12/29/2011 MADL CARGO SUPERVISOR, FLO L V25.9 Contraception Management 12/29/2011 MADL CARGO SUPERVISOR, FLO L V76.2 Cervical Cancer Screening (pap Smear) 12/29/2011 GODWIN SEVILLA APRN 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 12/29/2011 ROEL CARGO SUPERVISOR, GODWIN 427.89 Other Specified Cardiac Dysrhythmias 12/29/2011 ROEL CARGO SUPERVISOR, GODWIN V25.9 Contraception Management 12/29/2011 ROEL CARGO SUPERVISOR, GODWIN V76.2 Cervical Cancer Screening (pap Smear) 12/29/2011 SONNY CARGO SUPERVISOR, ELIAS A 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 12/29/2011 SONNY CARGO SUPERVISOR, ELIAS A 427.89 Other Specified Cardiac Dysrhythmias 12/29/2011 SONNY CARGO SUPERVISOR, ELIAS A V25.9 Contraception Management 12/29/2011 SONNY CARGO SUPERVISOR, ELIAS A V76.2 Cervical Cancer Screening (pap Smear) 12/29/2011 [facility], DEMOND R 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 12/29/2011 [facility], DEMOND R 427.89 Other Specified Cardiac Dysrhythmias 12/29/2011 [facility], DEMOND R V25.9 Contraception Management 12/29/2011 [facility], DEMOND Fernando V76.2 Cervical Cancer Screening (pap Smear) 12/29/2011 LISA MENG, FLO L 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 12/29/2011 BRYANL CARGO SUPERVISOR, FLO L 427.89 Other Specified Cardiac Dysrhythmias 12/29/2011 MADL CARGO SUPERVISOR, FLO L V25.9 Contraception Management 12/29/2011 MADL CARGO SUPERVISOR, FLO L V76.2 Cervical Cancer Screening (pap Smear) 12/29/2011 JOSE SILVERIO DDS 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 12/29/2011 NUSRAT JENKINSSJOSE 427.89 Other Specified Cardiac Dysrhythmias 12/29/2011 SILVERIO ALICESJOSE V25.9 Contraception Management 12/29/2011 NUSRAT JENKINSSJOSE V76.2 Cervical Cancer Screening (pap Smear) 12/29/2011 [facility], DEMOND R 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 12/29/2011 [facility], DEMOND R 427.89 Other Specified Cardiac Dysrhythmias 12/29/2011 [facility], DEMOND R V25.9 Contraception Management 12/29/2011 [facility], DEMOND R V76.2 Cervical Cancer Screening (pap Smear) 12/29/2011 [facility], DEMOND R 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 12/29/2011 [facility], DEMOND R 427.89 Other Specified Cardiac Dysrhythmias 12/29/2011 [facility], DEMOND R V25.9 Contraception Management 12/29/2011 [facility], DEMOND R V76.2 Cervical Cancer Screening (pap Smear) 12/29/2011 ROEL CARGO SUPERVISOR, GODWIN 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 12/29/2011 ROEL CARGO SUPERVISOR, GODWIN 427.89 Other Specified Cardiac Dysrhythmias 12/29/2011 ROEL CARGO SUPERVISOR, GODWIN V25.9 Contraception Management 12/29/2011 ROEL CARGO SUPERVISOR, GODWIN V76.2 Cervical Cancer Screening (pap Smear) 12/29/2011 NICOLA MANUEL DO 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 12/29/2011 NICOLA MANUEL DO 427.89 Other Specified Cardiac Dysrhythmias 12/29/2011 NICOLA MANUEL DO V25.9 Contraception Management 12/29/2011 NICOLA MANUEL DO V76.2 Cervical Cancer Screening (pap Smear) 12/29/2011 ROEL CARGO SUPERVISOR, GODWIN 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 12/29/2011 ROEL CARGO SUPERVISOR, GODWIN 427.89 Other Specified Cardiac Dysrhythmias 12/29/2011 ROEL CARGO SUPERVISOR, OGDWIN V25.9 Contraception Management 12/29/2011 ROEL CARGO SUPERVISOR, GDOWIN V76.2 Cervical Cancer Screening (pap Smear) 12/29/2011 ROEL CARGO SUPERVISOR, GODWIN 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 12/29/2011 ROEL CARGO SUPERVISOR, GODWIN 427.89 Other Specified Cardiac Dysrhythmias 12/29/2011 ROEL CARGO SUPERVISOR, GODWIN V25.9 Contraception Management 12/29/2011 ROEL CARGO SUPERVISOR, GODWIN V76.2 Cervical Cancer Screening (pap Smear) [...] Squamous Intraepithelial Lesion ( lgsil) 01/25/2012 GARTON CARGO SUPERVISOR, JASON D 427.9 Arrhythmia, Cardiac (sinus) 01/25/2012 [...] Grade Squamous Intraepithelial Lesion (lgsil) 01/25/2012 ROEL CARGO SUPERVISOR, GODWIN 427.9 Arrhythmia, Cardiac (sinus) 01/25/2012 ROEL CARGO SUPERVISOR, GODWIN 786.50 Unspecified Chest Pain 01/25/2012 ROEL CARGO SUPERVISOR, GODWIN 795.03 Papanicolaou Smear Of Cervix With Low Grade Squamous Intraepithelial Lesion (lgsil) 01/25/2012 MADL CARGO SUPERVISOR, FLO L 427.9 Arrhythmia, Cardiac (sinus) 01/25/2012 MADL CARGO SUPERVISOR, FLO L 786.50 Unspecified Chest Pain 01/25/2012 MADL CARGO SUPERVISOR, FLO L 795.03 Papanicolaou Smear Of Cervix With Low Grade Squamous Intraepithelial Lesion (lgsil) 01/25/2012 ROEL CARGO SUPERVISOR, GODWIN 427.9 Arrhythmia, Cardiac (sinus) 01/25/2012 ROEL CARGO SUPERVISOR, GODWIN 786.50 Unspecified Chest Pain 01/25/2012 ROEL CARGO SUPERVISOR, GODWIN 795.03 Papanicolaou Smear Of Cervix With Low Grade Squamous Intraepithelial Lesion (lgsil) 01/25/2012 MADL CARGO SUPERVISOR, FLO L 427.9 Arrhythmia, Cardiac (sinus) 01/25/2012 MADL CARGO SUPERVISOR, FLO L 786.50 Unspecified Chest Pain 01/25/2012 MADL CARGO SUPERVISOR, FLO L 795.03 Papanicolaou Smear Of Cervix With Low Grade Squamous Intraepithelial Lesion (lgsil) 01/25/2012 ROEL CARGO SUPERVISOR, GODWIN 427.9 Arrhythmia, Cardiac (sinus) 01/25/2012 ROEL CARGO SUPERVISOR, GODWIN 786.50 Unspecified Chest Pain 01/25/2012 ROEL CARGO SUPERVISOR, GODWIN 795.03 Papanicolaou Smear Of Cervix With Low Grade Squamous Intraepithelial Lesion (lgsil) 01/25/2012 ROEL CARGO SUPERVISOR, GODWIN 427.9 Arrhythmia, Cardiac (sinus) 01/25/2012 ROEL CARGO SUPERVISOR, GODWIN 786.50 Unspecified Chest Pain 01/25/2012 ROEL CARGO SUPERVISOR, GODWIN 795.03 Papanicolaou Smear Of Cervix With Low Grade Squamous Intraepithelial Lesion (lgsil) 01/25/2012 MADL CARGO SUPERVISOR, FLO L 427.9 Arrhythmia, Cardiac (sinus) 01/25/2012 MADL CARGO SUPERVISOR, FLO L 786.50 Unspecified Chest Pain 01/25/2012 MADL CARGO SUPERVISOR, FLO L 795.03 Papanicolaou Smear Of Cervix With Low Grade Squamous Intraepithelial Lesion (lgsil) 01/25/2012 MADL CARGO SUPERVISOR, FLO L 427.9 Arrhythmia, Cardiac (sinus) 01/25/2012 MADL CARGO SUPERVISOR, FLO L 786.50 Unspecified Chest Pain 01/25/2012 MADL CARGO SUPERVISOR, FLO L 795.03 Papanicolaou Smear Of Cervix With Low Grade Squamous Intraepithelial Lesion (lgsil) 01/25/2012 ROEL MENG GODWIN 427.9 Arrhythmia, Cardiac (sinus) 01/25/2012 ROEL CARGO SUPERVISOR, GODWIN 786.50 Unspecified Chest Pain 01/25/2012 ROEL CARGO SUPERVISOR, GODWIN 795.03 Papanicolaou Smear Of Cervix With Low Grade Squamous Intraepithelial Lesion (lgsil) 01/25/2012 SONNY MENG ELIAS A 427.9 Arrhythmia, Cardiac (sinus) 01/25/2012 SONNY MENG, ELIAS A 786.50 Unspecified Chest Pain 01/25/2012 SONNY MENG, ELIAS A 795.03 Papanicolaou Smear Of Cervix With Low Grade Squamous Intraepithelial Lesion (lgsil) 01/25/2012 [facility], DEMOND R 427.9 Arrhythmia, Cardiac (sinus) 01/25/2012 [facility] 786.50 Unspecified Chest Pain 01/25/2012 [facility] DEM[facility] R 795.03 Papanicolaou Smear Of Cervix With Low Grade Squamous Intraepithelial Lesion (lgsil) 01/25/2012 MADL CARGO SUPERVISOR, FLO L 427.9 Arrhythmia, Cardiac (sinus) 01/25/2012 MADL CARGO SUPERVISOR, FLO L 786.50 Unspecified Chest Pain 01/25/2012 MADL CARGO SUPERVISOR, FLO L 795.03 Papanicolaou Smear Of Cervix With Low Grade Squamous Intraepithelial Lesion (lgsil) 01/25/2012 SILVERIO DDS, JOSE 427.9 Arrhythmia, Cardiac (sinus) 01/25/2012 SILVERIO DDS, JOSE 786.50 Unspecified Chest Pain 01/25/2012 SILVERIO DDS, JOSE 795.03 Papanicolaou Smear Of Cervix With Low Grade Squamous Intraepithelial Lesion (lgsil) 01/25/2012 [facility] DEMOND R 427.9 Arrhythmia, Cardiac (sinus) 01/25/2012 [facility], DEMOND R 786.50 Unspecified Chest Pain 01/25/2012 [facility], DEMOND R 795.03 Papanicolaou Smear Of Cervix With Low Grade Squamous Intraepithelial Lesion (lgsil) 01/25/2012 [facility], DEMOND R 427.9 Arrhythmia, Cardiac (sinus) 01/25/2012 [facility] DEMOND R 786.50 Unspecified Chest Pain 01/25/2012 [facility], DEMOND R 795.03 Papanicolaou Smear Of Cervix With Low Grade Squamous Intraepithelial Lesion (lgsil) 01/25/2012 ROEL CARGO SUPERVISOR, GODWIN 427.9 Arrhythmia, Cardiac (sinus) 01/25/2012 ROEL CARGO SUPERVISOR, GODWIN 786.50 Unspecified Chest Pain 01/25/2012 ROEL CARGO SUPERVISOR, GODWIN 795.03 Papanicolaou Smear Of Cervix With Low Grade Squamous Intraepithelial Lesion (lgsil) 01/25/2012 NICOLA MANUEL DO K 427.9 Arrhythmia, Cardiac (sinus) 01/25/2012 NICOLA MANUEL DO K 786.50 Unspecified Chest Pain 01/25/2012 NICOLA MANUEL DO K 795.03 Papanicolaou Smear Of Cervix With Low Grade Squamous Intraepithelial Lesion ( lgsil) 01/25/2012 ROEL CARGO SUPERVISOR, GODWIN 427.9 Arrhythmia, Cardiac (sinus) 01/25/2012 ROEL CARGO SUPERVISOR, GODWIN 786.50 Unspecified Chest Pain 01/25/2012 ROEL CARGO SUPERVISOR, GODWIN 795.03 Papanicolaou Smear Of Cervix With Low Grade Squamous Intraepithelial Lesion (lgsil) 01/25/2012 ROEL CARGO SUPERVISOR, GODWIN 427.9 Arrhythmia, Cardiac (sinus) 01/25/2012 ROEL CARGO SUPERVISOR, GODWIN 786.50 Unspecified Chest Pain 01/25/2012 GODWIN [...] APRN L 724.5 Backache Unspecified 06/25/2012 MADL CARGO SUPERVISOR, FLO L 789.00 abdominal pain 06/25/2012 ROEL CARGO SUPERVISOR, GODWIN 724.5 Backache Unspecified 06/25/2012 ROEL CARGO SUPERVISOR, GODWIN 789.00 abdominal pain 06/25/2012 ROEL CARGO SUPERVISOR, GODWIN 724.5 Backache Unspecified 06/25/2012 ROEL CARGO SUPERVISOR, GODWIN 789.00 abdominal pain 06/25/2012 MADL CARGO SUPERVISOR, FLO L 724.5 Backache Unspecified 06/25/2012 MADL CARGO SUPERVISOR, FLO L 789.00 abdominal pain 06/25/2012 MADL CARGO SUPERVISOR, FLO L 724.5 Backache Unspecified 06/25/2012 MADL CARGO SUPERVISOR, FLO L 789.00 abdominal pain 06/25/2012 ROEL CARGO SUPERVISOR, GODWIN 724.5 Backache Unspecified 06/25/2012 ROEL CARGO SUPERVISOR, GODWIN 789.00 abdominal pain 06/25/2012 SONNY CARGO SUPERVISOR, ELIAS A 724.5 Backache Unspecified 06/25/2012 SONNY CARGO SUPERVISOR, ELIAS A 789.00 abdominal pain 06/25/2012 [facility], DEMOND R 724.5 Backache Unspecified 06/25/2012 [facility], DEMOND R 789.00 abdominal pain 06/25/2012 MADL CARGO SUPERVISOR, FLO L 724.5 Backache Unspecified 06/25/2012 MADL CARGO SUPERVISOR, FLO L 789.00 abdominal pain 06/25/2012 SILVERIO DDS, JOSE 724.5 Backache Unspecified 06/25/2012 SILVERIO DDS, JOSE 789.00 abdominal pain 06/25/2012 [facility], DEMOND R 724.5 Backache Unspecified 06/25/2012 [facility], DEMOND R 789.00 abdominal pain 06/25/2012 [facility], DEMOND R 724.5 Backache Unspecified 06/25/2012 [facility], DEMOND R 789.00 abdominal pain 06/25/2012 ROEL CARGO SUPERVISOR, GODWIN 724.5 Backache Unspecified 06/25/2012 ROEL CARGO SUPERVISOR, GODWIN 789.00 abdominal pain 06/25/2012 MANUEL DO NICOLA K 724.5 Backache Unspecified 06/25/2012 MANUEL DO, NICOLA K 789.00 abdominal pain 06/25/2012 ROEL CARGO SUPERVISOR, GODWIN 724.5 Backache Unspecified 06/25/2012 ROEL CARGO SUPERVISOR, GODWIN 789.00 abdominal pain 06/25/2012 ROEL CARGO SUPERVISOR, GODWIN 724.5 Backache Unspecified 06/25/2012 ROEL CARGO SUPERVISOR, GODWIN 789.00 abdominal pain 06/27/2012 EVITA JONES, WLOF 785.1 Palpitations 06/27/2012 EVITA JONES, WOLF 786.05 [...] DDSKELY J 786.50 Chest Pain 06/27/2012 GARTON CARGO SUPERVISOR, JASON D 785.1 Palpitations 06/27/2012 DALE CARGO SUPERVISORASHLEY KirkpatrickJASON D 786.05 Shortness Of Breath 06/27/2012 BRIANMYRA CARGO SUPERVISORASHLEY KirkpatrickJASON D 786.50 Chest Pain 06/27/2012 BRIANMYRA CARGO SUPERVISORAMAURY KirkpatrickJASON D 785.1 Palpitations 06/27/2012 DALE CARGO SUPERVISORASHLEY KirkpatrickJASON D 786.05 Shortness Of Breath 06/27/2012 DALE ASHLEY MENGBETH D 786.50 Chest Pain 06/27/2012 DALE CARGO SUPERVISORASHLEY KirkpatrickJASON D 785.1 Palpitations 06/27/2012 DALE ASHLEY MENGBETH D 786.05 Shortness Of Breath 06/27/2012 JASON HUNTER APRN D 786.50 Chest Pain 06/27/2012 WOLF JAMA MD 785.1 Palpitations 06/27/2012 WOLF JAMA MD 786.05 Shortness Of Breath 06/27/2012 WOLF JAMA MD 786.50 Chest Pain 06/27/2012 ROEL CARGO SUPERVISOR, GODWIN 785.1 Palpitations 06/27/2012 ROEL CARGO SUPERVISOR, GODWIN 786.05 Shortness Of Breath 06/27/2012 ROEL CARGO SUPERVISOR, GODWIN 786.50 Chest Pain 06/27/2012 MADL CARGO SUPERVISOR, FLO L 785.1 Palpitations 06/27/2012 MADL CARGO SUPERVISOR, FLO L 786.05 Shortness Of Breath 06/27/2012 MADL CARGO SUPERVISOR, FLO L 786.50 Chest Pain 06/27/2012 ROEL CARGO SUPERVISOR, GODWIN 785.1 Palpitations 06/27/2012 ROEL CARGO SUPERVISOR, GODWIN 786.05 Shortness Of Breath 06/27/2012 ROEL CARGO SUPERVISOR, GODWIN 786.50 Chest Pain 06/27/2012 MADL CARGO SUPERVISOR, FLO L 785.1 Palpitations 06/27/2012 MADL CARGO SUPERVISOR, FLO L 786.05 Shortness Of Breath 06/27/2012 MADL CARGO SUPERVISOR, FLO L 786.50 Chest Pain 06/27/2012 ROEL CARGO SUPERVISOR, GODWIN 785.1 Palpitations 06/27/2012 ROEL CARGO SUPERVISOR, GODWIN 786.05 Shortness Of Breath 06/27/2012 ROEL CARGO SUPERVISOR, GODWIN 786.50 Chest Pain 06/27/2012 ROEL CARGO SUPERVISOR, GDOWIN 785.1 Palpitations 06/27/2012 ROEL CARGO SUPERVISOR, GODWIN 786.05 Shortness Of Breath 06/27/2012 ROEL CARGO SUPERVISOR, GODWIN 786.50 Chest Pain 06/27/2012 MADL CARGO SUPERVISOR, FLO L 785.1 Palpitations 06/27/2012 MADL CARGO SUPERVISOR, FLO L 786.05 Shortness Of Breath 06/27/2012 MADL CARGO SUPERVISOR, FLO L 786.50 Chest Pain 06/27/2012 MADL CARGO SUPERVISOR, FLO L 785.1 Palpitations 06/27/2012 MADL CARGO SUPERVISOR, FLO L 786.05 Shortness Of Breath 06/27/2012 MADL CARGO SUPERVISOR, FLO L 786.50 Chest Pain 06/27/2012 ROEL CARGO SUPERVISOR, GODWIN 785.1 Palpitations 06/27/2012 ROEL CARGO SUPERVISOR, GODWIN 786.05 Shortness Of Breath 06/27/2012 ROEL CARGO SUPERVISOR, GODWIN 786.50 Chest Pain 06/27/2012 SONNY CARGO SUPERVISOR, ELIAS A 785.1 Palpitations 06/27/2012 SONNY CARGO SUPERVISOR, ELIAS A 786.05 Shortness Of Breath 06/27/2012 SONNY CARGO SUPERVISOR, ELIAS A 786.50 Chest Pain 06/27/2012 [facility], DEMOND R 785.1 Palpitations 06/27/2012 [facility], DEMOND R 786.05 Shortness Of Breath 06/27/2012 [facility] DEM[facility] R 786.50 Chest Pain 06/27/2012 MADL CARGO SUPERVISOR, FLO L 785.1 Palpitations 06/27/2012 MADL CARGO SUPERVISOR, FLO L 786.05 Shortness Of Breath 06/27/2012 MADL CARGO SUPERVISOR, FLO L 786.50 Chest Pain 06/27/2012 SILVERIO [...] DEMOND R 786.50 Chest Pain 06/27/2012 ROEL CARGO SUPERVISOR, GODWIN 785.1 Palpitations 06/27/2012 ROEL CARGO SUPERVISOR, GODWIN 786.05 Shortness Of Breath 06/27/2012 ROEL CARGO SUPERVISOR, GODWIN 786.50 Chest Pain 06/27/2012 MANUEL DO, NICOLA K 785.1 Palpitations 06/27/2012 MANUEL DO, NICOLA K 786.05 Shortness Of Breath 06/27/2012 MANUEL DO, NICOLA K 786.50 Chest Pain 06/27/2012 ROEL CARGO SUPERVISOR, GODWIN 785.1 Palpitations 06/27/2012 ROEL CARGO SUPERVISOR, GODWIN 786.05 Shortness Of Breath 06/27/2012 ROEL CARGO SUPERVISOR, GODWIN 786.50 Chest Pain 06/27/2012 ROEL CARGO SUPERVISOR, GODWIN 785.1 Palpitations 06/27/2012 ROEL CARGO SUPERVISOR, GODWIN 786.05 Shortness Of Breath 06/27/2012 ROEL CARGO SUPERVISOR, GODWIN 786.50 Chest Pain 08/07/2012 WOLF JAMA [...] Cervical Cancer Screening (pap Smear) 08/07/2012 ROEL CARGO SUPERVISOR, GODWIN 617.9 ENDOMETRIOSIS SITE UNSPECIFIED 08/07/2012 ROEL CARGO SUPERVISOR, GODWIN 625.9 Pelvic Pain 08/07/2012 ROEL CARGO SUPERVISOR, GODWIN V05.3 Hep B (adult) Dx 08/07/2012 ROEL CARGO SUPERVISOR, GODWIN V76.2 Cervical Cancer Screening (pap Smear) 08/07/2012 MADL CARGO SUPERVISOR, FLO L 617.9 ENDOMETRIOSIS SITE UNSPECIFIED 08/07/2012 MADL CARGO SUPERVISOR, FLO L 625.9 Pelvic Pain 08/07/2012 MADL CARGO SUPERVISOR, FLO L V05.3 Hep B (adult) Dx 08/07/2012 MADL CARGO SUPERVISOR, FLO L V76.2 Cervical Cancer Screening (pap Smear) 08/07/2012 ROEL CARGO SUPERVISOR, GODWIN 617.9 ENDOMETRIOSIS SITE UNSPECIFIED 08/07/2012 ROEL CARGO SUPERVISOR, GODWIN 625.9 Pelvic Pain 08/07/2012 ROEL CARGO SUPERVISOR, GODWIN V05.3 Hep B (adult) Dx 08/07/2012 ROEL CARGO SUPERVISOR, GODWIN V76.2 Cervical Cancer Screening (pap Smear) 08/07/2012 MADL CARGO SUPERVISOR, FLO L 617.9 ENDOMETRIOSIS SITE UNSPECIFIED 08/07/2012 MADL CARGO SUPERVISOR, FLO L 625.9 Pelvic Pain 08/07/2012 MADL CARGO SUPERVISOR, FLO L V05.3 Hep B (adult) Dx 08/07/2012 MADL CARGO SUPERVISOR, FLO L V76.2 Cervical Cancer Screening (pap Smear) 08/07/2012 ROEL CARGO SUPERVISOR, GODWIN 617.9 ENDOMETRIOSIS SITE UNSPECIFIED 08/07/2012 ROEL CARGO SUPERVISOR, GODWIN 625.9 Pelvic Pain 08/07/2012 ROEL CARGO SUPERVISOR, GODWIN V05.3 Hep B (adult) Dx 08/07/2012 ROEL CARGO SUPERVISOR, GODWIN V76.2 Cervical Cancer Screening (pap Smear) 08/07/2012 ROEL CARGO SUPERVISOR, GODWIN 617.9 ENDOMETRIOSIS SITE UNSPECIFIED 08/07/2012 ROEL CARGO SUPERVISOR, GODWIN 625.9 Pelvic Pain 08/07/2012 ROEL CARGO SUPERVISOR, GODWIN V05.3 Hep B (adult) Dx 08/07/2012 ROEL CARGO SUPERVISOR, GODWIN V76.2 Cervical Cancer Screening (pap Smear) 08/07/2012 MADL CARGO SUPERVISOR, FLO L 617.9 ENDOMETRIOSIS SITE UNSPECIFIED 08/07/2012 MADL CARGO SUPERVISOR, FLO L 625.9 Pelvic Pain 08/07/2012 MADL CARGO SUPERVISOR, FLO L V05.3 Hep B (adult) Dx 08/07/2012 MADL CARGO SUPERVISOR, FLO L V76.2 Cervical Cancer Screening (pap Smear) 08/07/2012 MADL CARGO SUPERVISOR, FLO L 617.9 ENDOMETRIOSIS SITE UNSPECIFIED 08/07/2012 MADL CARGO SUPERVISOR, FLO L 625.9 Pelvic Pain 08/07/2012 MADL CARGO SUPERVISOR, FLO L V05.3 Hep B (adult) Dx 08/07/2012 MADL CARGO SUPERVISOR, FLO L V76.2 Cervical Cancer Screening (pap Smear) 08/07/2012 ROEL CARGO SUPERVISOR, GODWIN 617.9 ENDOMETRIOSIS SITE UNSPECIFIED 08/07/2012 ROEL CARGO SUPERVISOR, GODWIN 625.9 Pelvic Pain 08/07/2012 ROEL CARGO SUPERVISOR, GODWIN V05.3 Hep B (adult) Dx 08/07/2012 ROEL CARGO SUPERVISOR, GODWIN V76.2 Cervical Cancer Screening (pap Smear) 08/07/2012 SONNY CARGO SUPERVISOR, ELIAS A 617.9 ENDOMETRIOSIS SITE UNSPECIFIED 08/07/2012 SONNY CARGO SUPERVISOR, ELIAS A 625.9 Pelvic Pain 08/07/2012 SONNY CARGO SUPERVISOR, ELIAS A V05.3 Hep B (adult) Dx 08/07/2012 SONNY CARGO SUPERVISOR, ELIAS A V76.2 Cervical Cancer Screening (pap Smear) 08/07/2012 [facility], DEMOND R 617.9 ENDOMETRIOSIS SITE UNSPECIFIED 08/07/2012 [facility], DEMOND R 625.9 Pelvic Pain 08/07/2012 [facility], DEMOND R V05.3 Hep B (adult) Dx 08/07/2012 [facility], DEMOND R V76.2 Cervical Cancer Screening (pap Smear) 08/07/2012 MADL CARGO SUPERVISOR, FLO L 617.9 ENDOMETRIOSIS SITE UNSPECIFIED 08/07/2012 MADL CARGO SUPERVISOR, FLO L 625.9 Pelvic Pain 08/07/2012 MADL CARGO SUPERVISOR, FLO L V05.3 Hep B (adult) Dx 08/07/2012 MADL CARGO SUPERVISOR, FLO L V76.2 Cervical Cancer Screening (pap Smear) 08/07/2012 NUSRAT DDS, JOSE 617.9 ENDOMETRIOSIS SITE UNSPECIFIED 08/07/2012 SILVERIO DDS, JOSE 625.9 Pelvic Pain 08/07/2012 SILVERIO DDS, JOSE V05.3 Hep B (adult) Dx 08/07/2012 SILVERIO DDS, JOSE V76.2 Cervical Cancer Screening (pap Smear) 08/07/2012 [facility], DEMOND R 617.9 ENDOMETRIOSIS SITE UNSPECIFIED 08/07/2012 [facility] 625.9 Pelvic Pain 08/07/2012 [facility] R V05.3 Hep B (adult) Dx 08/07/2012 [facility], DEMOND R V76.2 Cervical Cancer Screening (pap Smear) 08/07/2012 [facility] DEM[facility] R 617.9 ENDOMETRIOSIS SITE UNSPECIFIED 08/07/2012 [facility] DEM[facility] R 625.9 Pelvic Pain 08/07/2012 [facility] R V05.3 Hep B (adult) Dx 08/07/2012 [facility], DEMOND R V76.2 Cervical Cancer Screening (pap Smear) 08/07/2012 ROEL CARGO SUPERVISOR, GODWIN 617.9 ENDOMETRIOSIS SITE UNSPECIFIED 08/07/2012 ROEL CARGO SUPERVISOR, GODWIN 625.9 Pelvic Pain 08/07/2012 REOL CARGO SUPERVISOR, GODWIN V05.3 Hep B (adult) Dx 08/07/2012 ROEL CARGO SUPERVISOR, GODWIN V76.2 Cervical Cancer Screening (pap Smear) 08/07/2012 MANUEL DOMARALA K 617.9 ENDOMETRIOSIS SITE UNSPECIFIED 08/07/2012 MANUEL DO NICOLA K 625.9 Pelvic Pain 08/07/2012 MANUEL DOMARALA K V05.3 Hep B (adult) Dx 08/07/2012 MANUEL DO, NICOLA K V76.2 Cervical Cancer Screening (pap Smear) 08/07/2012 ROEL CARGO SUPERVISOR, GODWIN 617.9 ENDOMETRIOSIS SITE UNSPECIFIED 08/07/2012 ROEL CARGO SUPERVISOR, GODWIN 625.9 Pelvic Pain 08/07/2012 ROEL CARGO SUPERVISOR, GODWIN V05.3 Hep B (adult) Dx 08/07/2012 ROEL CARGO SUPERVISOR, GODWIN V76.2 Cervical Cancer Screening (pap Smear) 08/07/2012 ROEL CARGO SUPERVISOR, GODWIN 617.9 ENDOMETRIOSIS SITE UNSPECIFIED 08/07/2012 ROEL CARGO SUPERVISOR, GODWIN 625.9 Pelvic Pain 08/07/2012 ROEL CARGO SUPERVISOR, GODWIN V05.3 Hep B (adult) Dx 08/07/2012 ROEL CARGO SUPERVISOR, GODWIN V76.2 Cervical Cancer Screening (pap Smear) [...] UNSPECIFIED NONINFECTIOUS GASTROENTERITIS AND COLITIS 09/28/2012 ROEL CARGO SUPERVISOR, GODWIN 558.9 OTHER AND UNSPECIFIED NONINFECTIOUS GASTROENTERITIS AND COLITIS 09/28/2012 ROSITA GONZALEZ APRNA L 558.9 OTHER AND UNSPECIFIED NONINFECTIOUS GASTROENTERITIS AND COLITIS 09/28/2012 ROEL CARGO SUPERVISOR, GODWIN 558.9 OTHER AND UNSPECIFIED NONINFECTIOUS GASTROENTERITIS AND COLITIS 09/28/2012 ROSITA GONZALEZ APRNA L 558.9 OTHER AND UNSPECIFIED NONINFECTIOUS GASTROENTERITIS AND COLITIS 09/28/2012 ROEL CARGO SUPERVISOR, GODWIN 558.9 OTHER AND UNSPECIFIED NONINFECTIOUS GASTROENTERITIS AND COLITIS 09/28/2012 ROEL CARGO SUPERVISOR, GODWIN 558.9 OTHER AND UNSPECIFIED NONINFECTIOUS GASTROENTERITIS AND COLITIS 09/28/2012 LISA MENG FLO L 558.9 OTHER AND UNSPECIFIED NONINFECTIOUS GASTROENTERITIS AND COLITIS 09/28/2012 BRYANL TAQUERIA FLO L 558.9 OTHER AND UNSPECIFIED NONINFECTIOUS GASTROENTERITIS AND COLITIS 09/28/2012 ROEL CARGO SUPERVISOR, GODWIN 558.9 OTHER AND UNSPECIFIED NONINFECTIOUS GASTROENTERITIS AND COLITIS 09/28/2012 ELIAS DENNIS APRN 558.9 OTHER AND UNSPECIFIED NONINFECTIOUS GASTROENTERITIS AND COLITIS 09/28/2012 [facility], DEMOND R 558.9 OTHER AND UNSPECIFIED NONINFECTIOUS GASTROENTERITIS AND COLITIS 09/28/2012 LISA MENG FLO L 558.9 OTHER AND UNSPECIFIED NONINFECTIOUS GASTROENTERITIS AND COLITIS 09/28/2012 JOSE SILVERIO DDS 558.9 OTHER AND UNSPECIFIED NONINFECTIOUS GASTROENTERITIS AND COLITIS 09/28/2012 [facility], DEMOND R 558.9 OTHER AND UNSPECIFIED NONINFECTIOUS GASTROENTERITIS AND COLITIS 09/28/2012 [facility], DEMOND R 558.9 OTHER AND UNSPECIFIED NONINFECTIOUS GASTROENTERITIS AND COLITIS 09/28/2012 ROELGODWIN VARGAS APRN 558.9 OTHER AND UNSPECIFIED NONINFECTIOUS GASTROENTERITIS AND COLITIS 09/28/2012 NICOLA MANUEL DO 558.9 OTHER AND UNSPECIFIED NONINFECTIOUS GASTROENTERITIS AND COLITIS 09/28/2012 ROELSAM MENG GODWIN 558.9 OTHER AND UNSPECIFIED NONINFECTIOUS GASTROENTERITIS AND COLITIS 09/28/2012 ROEL CARGO SUPERVISOR, GODWIN 558.9 OTHER AND UNSPECIFIED NONINFECTIOUS GASTROENTERITIS [...] WOLF JAMA MD 626.0 AMENORRHEA 11/29/2012 ROEL CARGO SUPERVISOR, GODWIN 626.0 AMENORRHEA 11/29/2012 MADL CARGO SUPERVISOR, FLO L 626.0 AMENORRHEA 11/29/2012 ROEL CARGO SUPERVISOR, GODWIN 626.0 AMENORRHEA 11/29/2012 MADL CARGO SUPERVISOR, FLO L 626.0 AMENORRHEA 11/29/2012 ROEL CARGO SUPERVISOR, GODWIN 626.0 AMENORRHEA 11/29/2012 ROEL CARGO SUPERVISOR, GODWIN 626.0 AMENORRHEA 11/29/2012 MADL CARGO SUPERVISOR, FLO L 626.0 AMENORRHEA 11/29/2012 MADL CARGO SUPERVISOR, FLO L 626.0 AMENORRHEA 11/29/2012 ROEL CARGO SUPERVISOR, GODWIN 626.0 AMENORRHEA 11/29/2012 SONNY MENG ELIAS A 626.0 AMENORRHEA 11/29/2012 [facility], DEMOND R 626.0 AMENORRHEA 11/29/2012 MADL CARGO SUPERVISOR, FLO L 626.0 AMENORRHEA 11/29/2012 JOSE SILVERIO DDS 626.0 AMENORRHEA 11/29/2012 [facility], DEMOND R 626.0 AMENORRHEA 11/29/2012 [facility], DEMOND R 626.0 AMENORRHEA 11/29/2012 ROEL CARGO SUPERVISOR, GODWIN 626.0 AMENORRHEA 11/29/2012 NICOLA MANUEL DO 626.0 AMENORRHEA 11/29/2012 ROEL CARGO SUPERVISOR, GODWIN 626.0 AMENORRHEA 11/29/2012 ROEL CARGO SUPERVISOR, GODWIN 626.0 AMENORRHEA 12/08/2012 Ot 723.1 CERVICALGIA [...] ROEL MENG GODWIN 626.1 OLIGOMENORRHEA 01/16/2013 ROEL CARGO SUPERVISOR, GODWIN V73.81 HPV SCREENING 01/16/2013 ROEL CARGO SUPERVISOR, GODWIN V74.5 STD SCREEN 01/16/2013 ROEL CARGO SUPERVISOR, GODWIN V76.2 CERVICAL CANCER SCREENING (PAP SMEAR) 01/16/2013 MADL CARGO SUPERVISOR, FLO L 305.1 TOBACCO ABUSE 01/16/2013 MADL CARGO SUPERVISOR, FLO L 626.1 OLIGOMENORRHEA 01/16/2013 MADL CARGO SUPERVISOR, FLO L V73.81 HPV SCREENING 01/16/2013 MADL CARGO SUPERVISOR, FLO L V74.5 STD SCREEN 01/16/2013 MADL CARGO SUPERVISOR, FLO L V76.2 CERVICAL CANCER SCREENING (PAP SMEAR) 01/16/2013 ROEL CARGO SUPERVISOR, GODWIN 305.1 TOBACCO ABUSE 01/16/2013 ROEL CARGO SUPERVISOR, GODWIN 626.1 OLIGOMENORRHEA 01/16/2013 ROEL CARGO SUPERVISOR, GODWIN V73.81 HPV SCREENING 01/16/2013 ROEL CARGO SUPERVISOR, GODWIN V74.5 STD SCREEN 01/16/2013 ROEL CARGO SUPERVISOR GODWIN V76.2 CERVICAL CANCER SCREENING (PAP SMEAR) 01/16/2013 ROEL CARGO SUPERVISOR, GODWIN 305.1 TOBACCO ABUSE 01/16/2013 ROEL CARGO SUPERVISOR, GODWIN 626.1 OLIGOMENORRHEA 01/16/2013 ROEL CARGO SUPERVISOR, GODWIN V73.81 HPV SCREENING 01/16/2013 ROEL CARGO SUPERVISOR, GODWIN V74.5 STD SCREEN 01/16/2013 ROEL CARGO SUPERVISOR, GODWIN V76.2 CERVICAL CANCER SCREENING (PAP SMEAR) 01/16/2013 MAD CARGO SUPERVISOR, FLO L 305.1 TOBACCO ABUSE 01/16/2013 MADL CARGO SUPERVISOR, FLO L 626.1 OLIGOMENORRHEA 01/16/2013 MADL CARGO SUPERVISOR, FLO L V73.81 HPV SCREENING 01/16/2013 MADL CARGO SUPERVISOR, FLO L V74.5 STD SCREEN 01/16/2013 MADL CARGO SUPERVISOR, FLO L V76.2 CERVICAL CANCER SCREENING (PAP SMEAR) 01/16/2013 MADL CARGO SUPERVISOR, FLO L 305.1 TOBACCO ABUSE 01/16/2013 MADL CARGO SUPERVISOR, FLO L 626.1 OLIGOMENORRHEA 01/16/2013 MADL CARGO SUPERVISOR, FLO L V73.81 HPV SCREENING 01/16/2013 MADL CARGO SUPERVISOR, FLO L V74.5 STD SCREEN 01/16/2013 MADL CARGO SUPERVISOR, FLO L V76.2 CERVICAL CANCER SCREENING (PAP SMEAR) 01/16/2013 ROEL CARGO SUPERVISOR, GODWIN 305.1 TOBACCO ABUSE 01/16/2013 ROEL CARGO SUPERVISOR, GODWIN 626.1 OLIGOMENORRHEA 01/16/2013 ROEL CARGO SUPERVISOR, GODWIN V73.81 HPV SCREENING 01/16/2013 ROEL CARGO SUPERVISOR, GODWIN V74.5 STD SCREEN 01/16/2013 ROEL CARGO SUPERVISOR, GODWIN V76.2 CERVICAL CANCER SCREENING (PAP SMEAR) 01/16/2013 SONNY APRN, ELIAS A 305.1 TOBACCO ABUSE 01/16/2013 SONNY CARGO SUPERVISOR, ELIAS A 626.1 OLIGOMENORRHEA 01/16/2013 SONNY CARGO SUPERVISOR, ELIAS A V73.81 HPV SCREENING 01/16/2013 SONNY CARGO SUPERVISOR, ELIAS A V74.5 STD SCREEN 01/16/2013 SONNY CARGO SUPERVISOR, ELIAS A V76.2 CERVICAL CANCER SCREENING (PAP SMEAR) 01/16/2013 [facility], DEMOND R 305.1 TOBACCO ABUSE 01/16/2013 [facility], DEMOND R 626.1 OLIGOMENORRHEA 01/16/2013 [facility], DEMOND R V73.81 HPV SCREENING 01/16/2013 [facility], DEMOND R V74.5 STD SCREEN 01/16/2013 [facility], DEMOND R V76.2 CERVICAL CANCER SCREENING (PAP SMEAR) 01/16/2013 BRYAN CARGO SUPERVISOR, FLO L 305.1 TOBACCO ABUSE 01/16/2013 MADL CARGO SUPERVISOR, FLO L 626.1 OLIGOMENORRHEA 01/16/2013 MADL CARGO SUPERVISOR, FLO L V73.81 HPV SCREENING 01/16/2013 MADL CARGO SUPERVISOR, FLO L V74.5 STD SCREEN 01/16/2013 MADL CARGO SUPERVISOR, FLO L V76.2 CERVICAL CANCER SCREENING (PAP SMEAR) 01/16/2013 JOSE SILVERIO DDS 305.1 TOBACCO ABUSE 01/16/2013 JOSE SILVERIO DDS 626.1 OLIGOMENORRHEA 01/16/2013 SILVERIO DDS, JOSE V73.81 HPV SCREENING 01/16/2013 SILVERIO DDS, JOSE V74.5 STD SCREEN 01/16/2013 SILVERIO DDS, JOSE V76.2 CERVICAL CANCER SCREENING (PAP SMEAR) 01/16/2013 [facility], DEMOND R 305.1 TOBACCO ABUSE 01/16/2013 [facility], DEMOND R 626.1 OLIGOMENORRHEA 01/16/2013 [facility], DEMOND R V73.81 HPV SCREENING 01/16/2013 [facility], DEMOND R V74.5 STD SCREEN 01/16/2013 [facility], DEMOND R V76.2 CERVICAL CANCER SCREENING (PAP SMEAR) 01/16/2013 [facility], DEMOND R 305.1 TOBACCO ABUSE 01/16/2013 [facility], DEMOND R 626.1 OLIGOMENORRHEA 01/16/2013 [facility], DEMOND R V73.81 HPV SCREENING 01/16/2013 [facility], DEMOND R V74.5 STD SCREEN 01/16/2013 [facility], DEMOND R V76.2 CERVICAL CANCER SCREENING (PAP SMEAR) 01/16/2013 [employer] [employer] [facility], GODWIN 305.1 TOBACCO ABUSE 01/16/2013 [employer], GODWIN 626.1 OLIGOMENORRHEA 01/16/2013 [employer] SUPERVIS[employer], GODWIN V73.81 HPV SCREENING 01/16/2013 [employer], GODWIN V74.5 STD SCREEN 01/16/2013 [employer]PER[employer], GODWIN V76.2 CERVICAL CANCER SCREENING (PAP SMEAR) 01/16/2013 NICOLA MANUEL DO K 305.1 TOBACCO ABUSE 01/16/2013 [facility] NICOLA K 626.1 OLIGOMENORRHEA 01/16/2013 MANUEL DO NICOLA K V73.81 HPV SCREENING 01/16/2013 [facility] NICOLA K V74.5 STD SCREEN 01/16/2013 MANUEL DO NICOLA K V76.2 CERVICAL CANCER SCREENING (PAP SMEAR) 01/16/2013 [employer], GODWIN 305.1 TOBACCO ABUSE 01/16/2013 [employer], GODWIN 626.1 OLIGOMENORRHEA 01/16/2013 [employer] SUPERVIS[employer], GODWIN V73.81 HPV SCREENING 01/16/2013 [employer], GODWIN V74.5 STD SCREEN 01/16/2013 [employer], GODWIN V76.2 CERVICAL CANCER SCREENING (PAP SMEAR) 01/16/2013 [employer], GODWIN 305.1 TOBACCO ABUSE 01/16/2013 [employer],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 11/10/2014 MADL CARGO SUPERVISOR, FLO L 785.1 PALPITATIONS 11/10/2014 SILVERIO ALICESJOSE 785.1 PALPITATIONS 11/10/2014 [facility], DEMOND R 785.1 PALPITATIONS 11/10/2014 [facility], DEMOND R 785.1 PALPITATIONS 11/10/2014 ROELSAM MENG, GODWIN 785.1 PALPITATIONS 11/10/2014 NICOLA MANUEL DO K 785.1 PALPITATIONS 11/10/2014 ROEL CARGO SUPERVISOR, GODWIN 785.1 PALPITATIONS 11/10/2014 ROEL MENG, GODWIN 785.1 PALPITATIONS 11/28/2014 FLO GONZALEZ SOCIAL SERVICES DIRECTOR Ot 785.1 11/28/2014 ISMAEL SOL APRN Ot 521.00 UNSPEC DENTAL CARIES 11/28/2014 ISMAEL SOL APRN Ot 525.9 DENTAL DISORDER NOS 12/09/2014 ISMAEL SOL APRN Ot 785.1 PALPITATIONS 12/18/2014 NICOLA MANUEL DO V15.82 NICOTINE ABUSE 12/18/2014 GODWIN SEVILLA APRN V15.82 NICOTINE ABUSE 12/18/2014 MICHAEL SEVILLA APRNETTE V15.82 NICOTINE ABUSE 01/01/2015 FLO GONZALEZ SOCIAL SERVICES DIRECTOR Ot 785.1 01/21/2015 Ot 521.00 UNSPEC DENTAL CARIES 01/21/2015 Ot 523.10 CHRONIC GINGIVITIS, PLAQUE INDUCED 01/21/2015 Ot 525.9 DENTAL DISORDER NOS 01/23/2015 MICHAEL SEVILLA APRNETTE 296.64 MO BIPOLAR I MIXED W PSYCHOTIC BEHAVIOR 01/23/2015 ROEL MENG GODWIN 296.64 MO BIPOLAR I MIXED W PSYCHOTIC BEHAVIOR 02/25/2015 FLO GONZALEZ SOCIAL SERVICES DIRECTOR Ot 785.1 PALPITATIONS 05/18/2015 Ot 427.9 05/18/2015 EVITA JONES, WOLF Carmona Ot 596.59 05/18/2015 EVITA JONES, WOLF Carmona Ot 724.2 05/18/2015 EVITA JONES, WOLF Carmona Ot 729.5 05/18/2015 GERBER JONES, JENNIFER Altamirano Ot 240.9 05/18/2015 GERBER JONES, JENNIFER Altamirano Ot 789.01 05/18/2015 ROSITA GONZALEZA L SOCIAL SERVICES DIRECTOR Ot 724.2 05/18/2015 MADL, FLO L SOCIAL SERVICES DIRECTOR Ot 785.1 05/18/2015 Ot 427.9 05/18/2015 EVITA JONES, WOLF Carmona Ot 596.59 05/18/2015 EVITA JONES, WOLF Carmona Ot 724.2 05/18/2015 WOLF JAMA MD Ot 729.5 05/18/2015 GERBER JONES, JENNIFER Altamirano Ot 240.9 05/18/2015 GERBER JONES, JENNIFER Altamirano Ot 789.01 05/18/2015 MADLFLO L SOCIAL SERVICES DIRECTOR Ot 724.2 05/18/2015 MADLFLO SOCIAL SERVICES DIRECTOR Ot 785.1 05/18/2015 ISMAEL SOL CARGO SUPERVISOR Ot 112.1 CANDIDAL VULVOVAGINITIS 05/18/2015 ISMAEL SOL CARGO SUPERVISOR Ot 599.0 URIN TRACT INFECTION NOS 05/18/2015 ISMAEL SOL CARGO SUPERVISOR Ot 789.09 ABDOMINAL PAIN, OTHER SPECIFIED SITE 05/18/2015 MADLFLO SOCIAL SERVICES DIRECTOR Ot 724.2 08/26/2015 MADLFLO L SOCIAL SERVICES DIRECTOR Ot 785.1 08/26/2015 ARSEN LOCO DOA K Ot N39.0 URINARY TRACT INFECTION, SITE NOT SPECIF 08/26/2015 ARSEN LOCO DOA K Ot R10.11 RIGHT UPPER QUADRANT PAIN 08/31/2015 ISMAEL SOL CARGO SUPERVISOR Ot F19.10 OTHER PSYCHOACTIVE SUBSTANCE ABUSE, UNCO 08/31/2015 ISMAEL SOL CARGO SUPERVISOR Ot R56.9 UNSPECIFIED CONVULSIONS 10/10/2015 ISMAEL SOL CARGO SUPERVISOR Ot F17.210 NICOTINE DEPENDENCE, CIGARETTES, UNCOMPL 10/10/2015 ISMAEL SOL CARGO SUPERVISOR Ot F39 UNSPECIFIED MOOD [AFFECTIVE] DISORDER 10/10/2015 ISMAEL SOL CARGO SUPERVISOR Ot N39.0 URINARY TRACT INFECTION, SITE NOT SPECIF 10/10/2015 ISMAEL SOL CARGO SUPERVISOR Ot T88.7XXA UNSP ADVERSE EFFECT OF DRUG OR MEDICAMEN 11/04/2015 Ot 427.9 11/04/2015 WOLF JAMA MD Ot 596.59 11/04/2015 WOLF JAMA MD Ot 724.2 11/04/2015 WOLF JAMA MD Ot 729.5 11/04/2015 GERBER JONES, JENNIFER Altamirano Ot 240.9 11/04/2015 GERBER JONES, JENNIFER Altamirano Ot 789.01 11/04/2015 MADL, FLO L SOCIAL SERVICES DIRECTOR Ot 724.2 11/04/2015 MADL, FLO L SOCIAL SERVICES DIRECTOR Ot 785.1 11/19/2015 FELICIA RESTREPO APRN Ot Z87.42 01/02/2016 Ot 427.9 01/02/2016 EVITA JONES, WOLF Carmona Ot 596.59 01/02/2016 EVITA JONES, WOLF Carmona Ot 724.2 01/02/2016 EVITA JONES, WOLF Carmona Ot 729.5 01/02/2016 GERBER JONES, JENNIFER Altamirano Ot 240.9 01/02/2016 GERBER JONES, JENNIFER Altamirano Ot 789.01 01/02/2016 MADL, FLO L SOCIAL SERVICES DIRECTOR Ot 724.2 01/02/2016 MADL, FLO L SOCIAL SERVICES DIRECTOR Ot 785.1 01/02/2016 FELICIA RESTREPO APRN Ot [...] Carmona Ot 724.2 01/02/2016 EVITA JONES, WOLF Caromna Ot 729.5 01/02/2016 GERBER JONES, JENNIFER Altamirano Ot 240.9 01/02/2016 GERBER JONES, JENNIFER Altamirano Ot 789.01 01/02/2016 MADL, FLO L SOCIAL SERVICES DIRECTOR Ot 724.2 01/02/2016 MADL, FLO L SOCIAL SERVICES DIRECTOR Ot 785.1 01/02/2016 FELICIA RESTREPO APRN Ot [...] RIGHT UPPER QUADRANT 03/23/2016 MADL, FLO L SOCIAL SERVICES DIRECTOR Ot 724.2 LUMBAGO 03/23/2016 MADL, FLO L SOCIAL SERVICES DIRECTOR Ot 785.1 PALPITATIONS 03/23/2016 FELICIA RESTREPO APRN [...] RIGHT UPPER QUADRANT 03/24/2016 MADL, FLO L SOCIAL SERVICES DIRECTOR Ot 724.2 LUMBAGO 03/24/2016 MADL, FLO L SOCIAL SERVICES DIRECTOR Ot 785.1 PALPITATIONS 03/24/2016 FELICIA RESTREPO APRN [...] RIGHT UPPER QUADRANT 06/29/2016 MADL, FLO L SOCIAL SERVICES DIRECTOR Ot 724.2 LUMBAGO 06/29/2016 MADL, FLO L SOCIAL SERVICES DIRECTOR Ot 785.1 PALPITATIONS 06/29/2016 FELICIA RESTREPO CARGO SUPERVISOR Ot Z87.42 PERSONAL HISTORY OF OTH DISEASES [...] 07/22/2016 SUNITA BERNAL L Ot Z79.899 OTHER RETORT PRE COOKER (CURRENT) DRUG THERAPY 07/25/2016 SUNITA BERNAL Ot [...] 07/25/2016 SUNITA BERNAL L Ot Z79.899 OTHER RETORT PRE COOKER (CURRENT) DRUG THERAPY 07/25/2016 SUNITA BERNAL Ot [...] OF 07/25/2016 SUNITA BERNAL Ot Z79.899 OTHER RETORT PRE COOKER (CURRENT) DRUG THERAPY 09/14/2016 JENNIFER MAYES MD, [...] TEETH AND SUPPORTING STRUCTU 04/11/2017 FLO GONZALEZ SOCIAL SERVICES DIRECTOR Ot R10.2 PELVIC AND PERINEAL PAIN 04/24/2017 MADLROSITAA L SOCIAL SERVICES DIRECTOR Ot R10.2 PELVIC AND PERINEAL PAIN 04/24/2017 Ot 427.9 CARDIAC DYSRHYTHMIA NOS 04/24/2017 WOLF JAMA MD Ot 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 04/24/2017 WOLF JAMA MD Ot 724.2 LUMBAGO 04/24/2017 WOLF AJMA MD Ot 729.5 PAIN IN LIMB 04/24/2017 JENNIFER MAYES MD Ot 240.9 GOITER NOS 04/24/2017 JENNIFER MAYES MD Ot 789.01 ABDOMINAL PAIN, RIGHT UPPER QUADRANT 04/24/2017 FLO GONZALEZ SOCIAL SERVICES DIRECTOR Ot 724.2 LUMBAGO 04/24/2017 FLO GONZALEZ SOCIAL SERVICES DIRECTOR Ot 785.1 PALPITATIONS 04/24/2017 ANDREWSHANEFELICIA LORENZANA TAQUERIA Ot Z87.42 PERSONAL HISTORY OF OTH DISEASES OF THE 04/24/2017 JENNIFER MAYES MD, Ot O36.0930 MATERNAL CARE FOR OTH RHESUS ISOIMMUN, T 04/24/2017 JENNIFER MAYES MD, Ot Z23 ENCOUNTER FOR IMMUNIZATION 04/24/2017 JENNIFER MAYES MD, Ot Z3A.00 WEEKS OF GESTATION OF NOT SPEC 04/24/2017 FLO GONZALEZ SOCIAL SERVICES DIRECTOR Ot R10.2 PELVIC AND PERINEAL PAIN 05/03/2017 FLO GONZALEZ SOCIAL SERVICES DIRECTOR Ot R10.2 PELVIC AND PERINEAL PAIN 05/03/2017 FLO GONZALEZ SOCIAL SERVICES DIRECTOR Ot R10.2 PELVIC AND PERINEAL PAIN 11/30/2017 JENNIFER MAYES MD, Ot D64.9 ANEMIA, UNSPECIFIED 11/30/2017 JENNIFER MAYES MD, Ot N80.9 ENDOMETRIOSIS, UNSPECIFIED 11/30/2017 JENNIFER MAYES MD, Ot Z01.812 ENCOUNTER FOR PREPROCEDURAL LABORATORY E 11/30/2017 JENNIFER MAYES MD, Ot Z11.2 ENCOUNTER FOR SCREENING FOR OTHER BACTER 12/20/2017 JENNIFER MAYES MD, Ot F17.210 NICOTINE DEPENDENCE, CIGARETTES, UNCOMPL 12/20/2017 JENNIFER MAYES MD, Ot F31.9 BIPOLAR DISORDER, UNSPECIFIED 12/20/2017 JENNIFER MAYES MD, Ot F41.9 ANXIETY DISORDER, UNSPECIFIED 12/20/2017 JENNIFER MAYES MD, Ot G40.909 EPILEPSY, UNSP, NOT INTRACTABLE, WITHOUT 12/20/2017 JENNIFER MAYES MD, Ot J45.909 UNSPECIFIED ASTHMA, UNCOMPLICATED 12/20/2017 JENNIFER MAYES MD, Ot N83.202 UNSPECIFIED OVARIAN CYST, LEFT SIDE 12/21/2017 DONNELL JONES, CALVNI Kiser Ot F17.210 NICOTINE DEPENDENCE, CIGARETTES, UNCOMPL 12/21/2017 CALVIN JACOBO MD Ot F31.9 BIPOLAR DISORDER, UNSPECIFIED 12/21/2017 CALVIN JACOBO MD Ot F41.9 ANXIETY DISORDER, UNSPECIFIED 12/21/2017 CALVIN JACOBO MD Ot G89.18 OTHER ACUTE POSTPROCEDURAL PAIN 12/21/2017 CALVIN JACOBO MD Ot J45.909 UNSPECIFIED ASTHMA, UNCOMPLICATED 12/21/2017 CALVIN JACOBO MD Ot N99.820 POSTPROC HEMOR OF A SYS ORG FOLLOWING 12/21/2017 CALVIN JACOBO MD Ot Z87.448 PERSONAL HISTORY OF OTHER DISEASES OF UR 12/21/2017 CALVIN JACOBO MD, Ot Z88.0 ALLERGY STATUS TO PENICILLIN 12/21/2017 CALVIN JACOBO MD Ot Z88.8 ALLERGY STATUS TO OTH DRUG/MEDS/BIOL SUB 12/21/2017 CALVIN JACOBO MD Ot Z90.721 ACQUIRED ABSENCE OF OVARIES, UNILATERAL 12/21/2017 CALVIN JACOBO MD Ot Z90.89 ACQUIRED ABSENCE OF OTHER ORGANS 12/25/2017 JENNIFER MAYSE MD, Ot F17.210 NICOTINE DEPENDENCE, CIGARETTES, UNCOMPL 12/25/2017 JENNIFER MAYES MD, Ot F31.9 BIPOLAR DISORDER, UNSPECIFIED 12/25/2017 JENNIFER MAYES MD, Ot F41.9 ANXIETY DISORDER, UNSPECIFIED 12/25/2017 JENNIFER MAYES MD, Ot G40.909 EPILEPSY, UNSP, NOT INTRACTABLE, WITHOUT 12/25/2017 JENNIFER MAYES MD, Ot J45.909 UNSPECIFIED ASTHMA, UNCOMPLICATED 12/25/2017 JENNIFER MAYES MD Ot N83.202 UNSPECIFIED OVARIAN CYST, LEFT SIDE 01/09/2018 MIRANDA LOCO DO Ot F17.210 NICOTINE DEPENDENCE, CIGARETTES, UNCOMPL 01/09/2018 MIRANDA LOCO DO Ot F31.9 BIPOLAR DISORDER, UNSPECIFIED 01/09/2018 MIRANDA LOCO DO Ot F41.9 ANXIETY DISORDER, UNSPECIFIED 01/09/2018 MIRANDA LOCO DO Ot G89.29 OTHER CHRONIC PAIN 01/09/2018 MIRANDA LOCO DO Ot M54.5 LOW BACK PAIN 01/09/2018 MIRANDA LOCO DO Ot Z86.79 PERSONAL HISTORY OF OTHER DISEASES OF TH 01/09/2018 MIRANDA LOCO DO Ot Z87.42 PERSONAL HISTORY OF OTH DISEASES OF THE 01/09/2018 MIRANDA LOCO DO Ot Z88.0 ALLERGY STATUS TO PENICILLIN 01/09/2018 CLAUDY BLANTON MIRANDA Workamn Ot Z88.1 ALLERGY STATUS TO OTHER ANTIBIOTIC AGENT 01/09/2018 CLAUDY BLANTON MIRANDA Workman Ot Z88.6 ALLERGY STATUS TO ANALGESIC AGENT STATUS 01/09/2018 CLAUDY BLANTON MIRANDA Workman Ot Z90.710 ACQUIRED ABSENCE OF BOTH CERVIX AND UTER 01/09/2018 CLAUDY BLANTONMIRANDA Ot Z90.89 ACQUIRED ABSENCE OF OTHER ORGANS 01/10/2018 DONNELL JONES, CALVIN Kiser Ot F17.210 NICOTINE DEPENDENCE, CIGARETTES, UNCOMPL 01/10/2018 CALVIN JACOBO MD Ot F31.9 BIPOLAR DISORDER, UNSPECIFIED 01/10/2018 CALVIN JACOBO MD, Ot F41.9 ANXIETY DISORDER, UNSPECIFIED 01/10/2018 CALVIN JACOBO MD Ot G89.18 OTHER ACUTE POSTPROCEDURAL PAIN 01/10/2018 CALVIN JACOBO MD Ot J45.909 UNSPECIFIED ASTHMA, UNCOMPLICATED 01/10/2018 CALVIN JACOBO MD Ot N99.820 POSTPROC HEMOR OF A SYS ORG FOLLOWING 01/10/2018 CALVIN JACOBO MD Ot Z87.448 PERSONAL HISTORY OF OTHER DISEASES OF UR 01/10/2018 CALVIN JACOBO MD Ot Z88.0 ALLERGY STATUS TO PENICILLIN 01/10/2018 CALVIN JACOBO MD Ot Z88.8 ALLERGY STATUS TO OTH DRUG/MEDS/BIOL SUB 01/10/2018 CALVIN JACOBO MD Ot Z90.721 ACQUIRED ABSENCE OF OVARIES, UNILATERAL 01/10/2018 DONNELL JONES, CALVIN Kiser Ot Z90.89 ACQUIRED ABSENCE OF OTHER ORGANS 01/11/2018 MIRANDA LOCO DO Ot F17.210 NICOTINE DEPENDENCE, CIGARETTES, UNCOMPL 01/11/2018 MIRANDA LOCO DO Ot F31.9 BIPOLAR DISORDER, UNSPECIFIED 01/11/2018 MIRANDA LOCO DO Ot F41.9 ANXIETY DISORDER, UNSPECIFIED 01/11/2018 CLAUDY MIRANDA BLANTON Ot G89.29 OTHER CHRONIC PAIN 01/11/2018 MIRANDA LOCO DO Ot M54.5 LOW BACK PAIN 01/11/2018 CLAUDY MIRANDA BLANTON Ot Z86.79 PERSONAL HISTORY OF OTHER DISEASES OF TH 01/11/2018 MIRANDA LOCO DO Ot Z87.42 PERSONAL HISTORY OF OTH DISEASES OF THE 01/11/2018 CLAUDY MIRANDA BLANTON Ot Z88.0 ALLERGY STATUS TO PENICILLIN 01/11/2018 MIRANDA LOCO DO Ot Z88.1 ALLERGY STATUS TO OTHER ANTIBIOTIC AGENT 01/11/2018 CLAUDY MIRANDA BLANTON Ot Z88.6 ALLERGY STATUS TO ANALGESIC AGENT STATUS 01/11/2018 CLAUDY MIRANDA BLANTON Ot Z90.710 ACQUIRED ABSENCE OF BOTH CERVIX AND UTER 01/11/2018 MIRANDA LOCO DO Ot Z90.89 ACQUIRED ABSENCE OF OTHER ORGANS Procedures Code Description [place] [address] ROUTINE VENIPUNCTURE 09/28/2012 98469 CBC 09/28/2012 78121 CRP 09/29/2012 27167 URINE TEST (IN- HOUSE) 11/29/2012 61866 URINE TEST (IN- HOUSE) 01/16/2013 81265 TRICHOMONAS (IN-HOUSE) 01/16/2013 09870 GC/CHLAM PROBE (STATE) 01/17/2013 63248 PAP SMEAR 01/17/2013 Q0091 PAP SMEAR OBTAIN SMEAR 01/17/2013 73800 CULTURE UROGENITAL 01/19/2013 78263 URINE TEST (IN- HOUSE) 02/13/2013 01667 URINE TEST (IN- HOUSE) 04/02/2013 63690 XRAY CERVICAL SPINE, 2 OR 3 VIEWS 04/02/2013 42940 XRAY LUMBAR SPINE 2 OR 3 VIEWS 04/02/2013 90213 MRI SPINE (LUMBAR) W/O CONTRAST 05/17/2013 04087 TB TEST INTRADERMAL 06/22/2013 64053 URINE TEST (IN- HOUSE) 08/01/2013 64844 UA LONG DIP 09/11/2013 7099606 GFR CALC (RESULT ONLY) 09/16/2013 08131 CREATININE 09/16/2013 96040 URINE PROTEIN 24 HOUR 09/16/2013 [id number] URINE CREATININE CLEARANCE 24 09/16/2013 73.6 EPISIOTOMY 03/22/2014 92222 ROUTINE VENIPUNCTURE 07/04/2014 66738 MRI SPINE (LUMBAR) W/O CONTRAST 07/04/2014 99557 CMP 07/04/2014 35728 CBC 07/04/2014 58393 ROUTINE VENIPUNCTURE 09/16/2014 80138 US ABDOMINAL ULTRASOUND, COMPLETE 09/16/2014 75919 VITAMIN D 25-HYDROXY (D2,D3 , TOTAL) 09/16/2014 88899 VIT B 12 09/16/2014 15662 TSH 09/16/2014 66472 H PYLORI (IN-HOUSE) 09/16/2014 22389 CBC 09/16/2014 8656732 GFR CALC (RESULT ONLY) 09/16/2014 39808 CMP 09/16/2014 19006 UA W/ CULTURE IF INDICATED 10/29/2014 05658 GC/CHLAM URINE (STATE) 10/29/2014 47852 PSYCH DIAGNOSTIC EVALUATION 10/31/2014 42445 ROUTINE VENIPUNCTURE 11/10/2014 98727 XRAY CHEST 2 VIEW 11/10/2014 02906 CMP 11/10/2014 70822 MAGNESIUM 11/10/2014 75899 CBC 11/10/2014 24588 EKG, TRACING (IN-HOUSE) 11/10/2014 08062 HOLTER MONITOR (OUTPATIENT) 11/10/2014 CARDIOLOG [facility] 11/10/2014 38011 PSYTX PT&/FAMILY 45 MINUTES 11/26/2014 [id number] DIVISION OF FEMALE PERINEUM, EXTERNAL AP 11/29/2016 [id number] DELIVERY OF PRODUCTS OF CONCEPTION, EXTE 11/29/2016 [...] GLOBULIN RHOPHYLAC PRSMD TRFSD 06/29/16 1556 NR [id number] - 06/29/16 15:40 [id number] 300ug NRG Lot number - 06/29/16 15:40 Lot number [id number] NR cell screen - 06/29/16 15:40 cell screen [...] culture - 06/29/16 16:25 Bacterial urine culture [id number] NRG COLONY COUNT >100,000/ML NRG FTX;REPORTABLE SENSITIVITY [...] identification in genital specimen by aerobe culture [id number] NRG Microscopic examination by wet preparation - [...] culture - 07/22/16 18:23 Bacterial urine culture [id number] NRG COLONY COUNT >100,000/ML NRG FTX;REPORTABLE SENSITIVITY REPORTED AT 1738, 9-16 NRG Bacterial susceptibility panel - 07/22/16 18:23 [...] inhibitory concentration - NRG RH IMMUNE GLOBULIN [facility] - 10/05/16 12:19 RH IMMUNE GLOBULIN [facility] PRSMD TRFSD 10/05/16 1300 NRG [id number] - 10/05/16 12:19 [id number] 300ug NRG Lot number - 10/05/16 12:19 Lot number [id number] NRG cell screen - 10/05/16 12:19 cell [...] platelet mean volume measurement 10.9 [foz_us] 7.4-10.4 [id number] - 11/08/16 19:04 [id number] SPECIMEN AVAILABLE [facility] Complete [...] ABO+Rh group AN NRG Transfusion band number [id number] NRG Blood group antibody screen NEGATIVE NRG [...] ABO+Rh group AN NRG Transfusion band number [id number] NRG Blood group antibody screen NEGATIVE NRG Luteinizing Hormone(LH), S - 03/16/17 15:36 LH 7.8 mIU/mL FSH, Serum - 03/16/17 15:36 FSH 7.7 mIU/mL Estradiol - 03/16/17 15:36 Estradiol 46.5 pg/mL Complete blood count (CBC) with automated white [...] 10:20 MRSA SCREEN RESULT MRSA ISOLATED NRG LIPID PANEL - 02/21/18 10:29 CHOLESTEROL, TOTAL 155 mg/dL <200 HDL CHOLESTEROL 62 mg/dL >50 TRIGLYCERIDES 61 mg/dL <150 LDL-CHOLESTEROL 79 mg/dL (calc) NRG CHOL/HDLC RATIO 2.5 (calc) <5.0 NON HDL CHOLESTEROL 93 mg/dL (calc) <130 CMP - 02/21/18 10:29 GLUCOSE 84 mg/dL 65-99 UREA NITROGEN (BUN) 16 mg/dL 7-25 CREATININE 0.63 mg/dL 0.50-1.10 eGFR NON-AFR. TRISTANIAN 123 mL/min/1.73m2 > OR=60 eGFR 142 mL/min/1.73m2 > OR=60 BUN/CREATININE RATIO NOT APPLICABLE (calc) 6-22 SODIUM 138 mmol/L 135-146 POTASSIUM 3.8 mmol/L 3.5-5.3 CHLORIDE 109 mmol/L 98-110 CARBON DIOXIDE 27 mmol/L 20-31 CALCIUM 9.6 mg/dL 8.6-10.2 PROTEIN, TOTAL 6.9 g/dL 6.1-8.1 ALBUMIN 4.4 g/dL 3.6-5.1 GLOBULIN 2.5 g/dL (calc) 1.9-3.7 ALBUMIN/GLOBULIN RATIO 1.8 (calc) 1.0-2.5 BILIRUBIN, TOTAL 0.5 mg/dL 0.2-1.2 ALKALINE PHOSPHATASE 54 U/L 33-115 AST 16 U/L 10-30 ALT 10 U/L 6-29 CULTURE, URINE - 03/30/18 13:46 CULTURE, URINE, ROUTINE SEE NOTE NRG Encounters ACCT No. Visit Date/Time Discharge Status Pt. Type Provider Facility Loc./Unit Complaint [id number] 02/27/2015 09:25:00 02/27/2015 23:59:59 CLS Outpatient GODWIN SEVILLA APRN [id number] 01/23/2015 11:47:00 01/23/2015 23:59:59 CLS Outpatient GODWIN SEVILLA APRN [id number] 12/18/2014 16:07:00 12/18/2014 23:59:59 CLS Outpatient NICOLA MANUEL DO [id number] 12/18/2014 10:25:00 12/18/2014 23:59:59 CLS Outpatient GODWIN SEVILLA APRN [id number] 12/16/2014 10:01:00 12/16/2014 23:59:59 [id number] 11/26/2014 14:03:00 11/26/2014 23:59:59 [id number] 11/21/2014 08:26:00 11/21/2014 23:59:59 CLS Outpatient JOSE SILVERIO DDS [id number] 11/10/2014 09:24:00 11/10/2014 23:59:59 CLS Outpatient FLO GONZALEZ APRN [id number] 10/31/2014 11:08:00 10/31/2014 23:59:59 [facility] [id number] 10/29/2014 16:35:00 10/29/2014 23:59:59 CLS Outpatient ELIAS DENNIS APRN [id number] 10/17/2014 11:27:00 10/17/2014 23:59:59 CLS Outpatient GODWIN SEVILLA APRN [id number] 09/16/2014 09:30:00 09/16/2014 23:59:59 CLS Outpatient FLO GONZALEZ APRN [id number] 09/16/2014 09:30:00 09/16/2014 23:59:59 CLS Outpatient FLO GONZALEZ APRN [id number] 08/01/2014 13:23:00 08/01/2014 23:59:59 CLS Outpatient GODWIN SEVILLA APRN [id number] 08/01/2014 13:23:00 08/01/2014 23:59:59 CLS Outpatient GODWIN SEVILLA APRN [id number] 07/04/2014 08:35:00 07/04/2014 23:59:59 CLS Outpatient FLO GONZALEZ APRN [id number] 06/10/2014 09:22:00 06/10/2014 23:59:59 CLS Outpatient GODWIN SEVILLA APRN [id number] 05/27/2014 08:53:00 05/27/2014 23:59:59 CLS Outpatient FLO GONZALEZ APRN [id number] 05/08/2014 11:48:00 05/08/2014 23:59:59 CLS Outpatient GODWIN SEVILLA APRN [id number] 04/10/2014 09:33:00 04/10/2014 23:59:59 CLS Outpatient WOLF JAMA MD [id number] 03/11/2014 13:00:00 03/11/2014 23:59:59 CLS Outpatient JASON HUNTER APRN [id number] 03/11/2014 13:00:00 03/11/2014 23:59:59 CLS Outpatient JASON HUNTER APRN [id number] 12/10/2013 10:52:00 12/10/2013 23:59:59 CLS Outpatient JASON HUNTER APRN [id number] 10/18/2013 09:59:00 10/18/2013 23:59:59 CLS Outpatient KELY FRIEDMAN DDS [id number] 09/16/2013 12:50:00 09/16/2013 23:59:59 CLS Outpatient NICOLA MANUEL DO [id number] 09/11/2013 16:55:00 09/11/2013 23:59:59 CLS Outpatient WOLF JAMA MD [id number] 08/15/2013 12:35:00 08/15/2013 23:59:59 CLS Outpatient JASON HUNTER APRN [id number] 08/01/2013 09:18:00 08/01/2013 23:59:59 CLS Outpatient MAR BLANTON NICOLA Workman [id number] 02/13/2013 13:59:00 02/13/2013 23:59:59 CLS Outpatient [id number] 01/24/2013 15:27:00 01/24/2013 23:59:59 CLS Outpatient JASON SOLANO DO [id number] 01/16/2013 10:21:00 01/16/2013 23:59:59 CLS Outpatient MAR BLANTON NICOLA Workman [id number] 11/29/2012 15:05:00 11/29/2012 23:59:59 CLS Outpatient [id number] 09/28/2012 08:28:00 09/28/2012 23:59:59 [place] [id number] 09/03/2012 15:05:00 09/03/2012 23:59:59 CLS Outpatient WOLF JAMA MD [id number] 06/22/2013 09:12:00 Document Registration [id number] 05/15/2013 10:52:00 Document Registration [id number] 05/09/2013 15:22:00 Document Registration [id number] 04/29/2013 08:59:00 Document Registration [id number] 04/26/2013 14:51:00 Document Registration [id number] 04/19/2013 10:48:00 Document Registration [id number] 04/02/2013 13:34:00 Document Registration [id number] 03/26/2013 13:02:00 Document Registration [id number] 03/23/2013 09:54:00 Document Registration [id number] 02/22/2013 12:11:00 Document Registration [id number] 03/30/2018 13:05:00 03/30/2018 23:59:59 CLS Outpatient NICOLA MANUEL DO [facility] [id number] 03/30/2018 13:05:00 Document Registration [id number] 02/21/2018 10:00:00 Document Registration [id number] 04/18/2018 08:58:00 04/18/2018 23:59:59 CLS Outpatient JENNIFER MAYES MD [facility]HAB PELVIC FLOOR WEAKNESS [id number] 02/02/2018 08:37:00 02/02/2018 23:59:59 CLS Preadmit DAKSHA JOHNS DO [facility] RAD M54.16 RADICULOPATHY [id number] 01/09/2018 00:07:00 01/09/2018 01:21:00 DIS Emergency MIRANDA LOCO DO [facility] ER SEVERE BACK PAIN GOES DOWN INTO LEGS HIPS [id number] 12/21/2017 01:43:00 12/21/2017 02:17:00 DIS Emergency CALVIN JACOBO MD [facility] ER POST OP ABD SURGERY BLEEDING THRU,VERY PAINFULL [id number] 12/20/2017 10:50:00 12/20/2017 16:50:00 DIS Outpatient JENNIFER MAYES MD [facility] ENDOMETRIOSIS, CHRONIC PELVIC PAIN [id number] 11/30/2017 10:02:00 11/30/2017 10:40:00 DIS Outpatient JENNIFER MAYES MD [facility] PREOP ENDOMETRIOSIS, CHRONIC PELVIC PAIN [id number] 04/05/2017 09:36:00 04/05/2017 23:59:59 CLS Outpatient FLO GONZALEZ [employer] DIRECTOR [facility] RAD R10.2 PELVIC PAIN [id number] 02/03/2017 09:42:00 02/03/2017 23:59:59 CLS Preadmit JENNIFER MAYES MD [facility] REHAB LBP TWO MONTHS ; S/P HYSTERECTOMY [id number] 02/02/2017 12:09:00 02/02/2017 12:47:00 DIS Emergency JESSIE ROBERTS MD [facility] ER DENTAL/JAW PAIN [id number] 01/09/2017 10:50:00 01/10/2017 09:45:00 DIS Outpatient JENNIFER MAYES MD [facility] CPP;DUB; ENDOMETRIOSIS [id number] 01/04/2017 12:09:00 01/04/2017 12:30:00 DIS Outpatient JENNIFER MAYES MD [facility] PREOP CPP;DUB; ENDOMETRIOSIS [id number] 12/16/2016 00:59:00 12/16/2016 02:52:00 DIS Emergency DONNELL JONES, CALVIN Kiser [facility] ER NAUSEA,FEVER,HAD BABY ON 11-29-16 [id number] 12/02/2016 10:48:00 12/02/2016 14:00:00 DIS Emergency SUNITA BERNAL [facility] ER PALPITATIONS/BLURRY VISION [id number] 11/29/2016 17:45:00 12/01/2016 13:30:00 DIS Inpatient JENNIFER MAYES MD [facility] LDRP LABOR [id number] 11/26/2016 13:04:00 11/26/2016 15:11:00 DIS Outpatient JENNIFER MAYES MD [facility] WSo RIB PAIN/LOWER BACK PAIN [id number] 11/08/2016 18:28:00 11/08/2016 21:23:00 DIS Outpatient JENNIFER MAYES MD [facility] WSo LOWER BACK PAIN/ RIB PAIN/ABD PAIN/GROIN PAIN [id number] 10/05/2016 12:03:00 10/05/2016 23:59:59 CLS Outpatient JENNIFER MAYES MD [facility] WSo RH NEGATIVE IN [id number] 09/14/2016 12:52:00 09/14/2016 13:45:00 DIS Outpatient JENNIFER MAYES MD [facility] WSo LOOSING MUCUS PLUG 26 WKS PREG [id number] 07/22/2016 16:02:00 07/22/2016 19:50:00 DIS Emergency SUNITA BERNAL [facility] ER FEVER/CANNOT URINATE [id number] 06/29/2016 14:38:00 06/29/2016 18:17:00 DIS Emergency REZA CORONADO MD [facility] ER VAG BLEEDING 15 WKS PREG [id number] 03/23/2016 21:42:00 03/24/2016 01:40:00 DIS Emergency MIRANDA LOCO DO [facility] ER CONFUSED,DROWSY [id number] 01/02/2016 01:08:00 01/02/2016 01:43:00 DIS Emergency CLAUDY BLANTONMIRANDA [facility] ER RT SIDE OF FACE PAINFUL, DENTAL PAIN [id number] 11/04/2015 14:43:00 11/04/2015 23:59:59 CLS Outpatient FELICIA RESTREPO CARGO SUPERVISOR [facility] RAD HISTORY OF ENDOMETRIOSIS [id number] 10/10/2015 16:42:00 10/10/2015 18:09:00 DIS Emergency ISMAEL SOL APRN [facility] ER HIP/BACK PAIN - POSSIBLY [id number] 08/31/2015 17:50:00 08/31/2015 19:59:00 DIS Emergency ISMAEL SOL APRN [facility] ER SEIZURE [id number] 08/26/2015 03:31:00 08/26/2015 05:08:00 DIS Emergency MIRANDA LOCO DO [facility] ER RT SIDE ABD PAIN [id number] 05/18/2015 11:11:00 05/18/2015 12:42:00 DIS Emergency ISMAEL SOL APRN [facility] ER ABD/LOWER BACK PAIN UTI SYMPTOMS [id number] 02/26/2015 09:00:00 02/26/2015 23:59:59 CLS Preadmit MADLROSITAA L SOCIAL SERVICES DIRECTOR [facility] CARD PALPITATIONS [id number] 11/27/2014 08:42:00 02/25/2015 00:01:00 DIS Outpatient BRYANLNARAYANFLO L SOCIAL SERVICES DIRECTOR [facility] CARD PALPITATIONS [id number] 12/09/2014 13:03:00 12/09/2014 14:48:00 DIS Emergency ISMAEL SOL APRN [facility] ER IRR HEART RATE [id number] 11/28/2014 21:04:00 11/28/2014 21:30:00 DIS Emergency ISMAEL SOL APRN [facility] ER TOOTH ACHE [id number] 09/18/2014 10:34:00 09/25/2014 11:11:00 DIS Outpatient JOSE FRIEDMAN MD [facility] REHAB LUMBAGO AND CERVICALGIA [id number] 09/19/2014 17:05:00 09/19/2014 18:13:00 DIS Emergency SUNITA BERNAL [facility] ER L SIDE FACIAL/DENTAL PAIN [id number] 08/11/2014 14:55:00 08/11/2014 23:59:59 CLS Outpatient BRYANTimaNARAYANFLO Tima SOCIAL SERVICES DIRECTOR [facility] RAD LBP [id number] 08/04/2014 15:27:00 08/04/2014 17:54:00 DIS Emergency ISMAEL SOL CARGO SUPERVISOR [facility] ER FALL [id number] 06/05/2014 15:36:00 06/05/2014 16:31:00 DIS Emergency REZA CORONADO MD [facility] ER CHEST CONGESTION, COUGH [id number] 05/01/2014 01:24:00 05/01/2014 03:36:00 DIS Emergency MIGDALIA RAMON DO [facility] ER BACK PAIN [id number] 04/24/2014 08:45:00 04/24/2014 23:59:59 CLS Outpatient JENNIFER MAYES MD [facility] RAD RUQ PAIN,GOITER [id number] 03/22/2014 13:08:00 03/26/2014 11:55:00 DIS Inpatient JENNIFER MAYES MD [facility] WS LABOR [id number] 03/20/2014 21:50:00 03/21/2014 09:00:00 DIS Inpatient JENNIFER MAYES MD [facility] WS RIB PAIN [id number] 03/14/2014 00:56:00 03/14/2014 01:44:00 DIS Outpatient JENNIFER MAYES MD [facility] WSo PRESSURE [id number] 02/11/2014 21:51:00 02/11/2014 22:50:00 DIS Outpatient JENNIFER MAYES MD [facility] WSo C/O CRAMPING [id number] 11/13/2013 15:06:00 11/13/2013 18:10:00 DIS Outpatient GERBER JONES, JENNIFER Altamirano [facility] WSo WATERY DISCHARGE SINCE 1400 [id number] 05/20/2013 08:48:00 05/20/2013 23:59:59 CLS Outpatient EVITA JONES, WOLF Carmona [facility] RAD LOW BACK PAIN,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,BLADDER DISFUNCT [id number] 04/30/2013 14:31:00 04/30/2013 16:18:00 DIS Emergency MEJIA JONES, YAW R [facility] ER LOW BACK/RT HIP PAIN ABSCESS RIGHT THIGH [id number] 04/20/2013 11:49:00 04/20/2013 13:40:00 DIS Emergency ARMANDO JONES, JESSIE Workman [facility] ER RAPID HEART BEAT, SOA [id number] 05/18/2015 11:12:00 Document Registration [id number] 05/18/2015 11:12:00 Document Registration [id number] 01/21/2015 00:32:00 Document Registration [id number] 09/25/2014 14:23:00 Document Registration [id number] 12/11/2012 16:00:00 Document Registration [id number] 12/08/2012 15:53:00 Document Registration [id number] 01/26/2012 09:17:00 Document Registration [id number] 01/18/2012 18:33:00 Document Registration [id number] 09/12/2011 15:20:00 Document Registration [id number] 06/27/2011 15:54:00 Document Registration [id number] 05/26/2010 22:10:00 Document Registration [id number] 05/06/2010 09:15:00 Document Registration [id number] 05/18/2015 11:12:53 ACT Document Registration [id number] 03/17/2017 07:05:00 Document Registration
[2018-04-27 19:17] VITALS: BP 114/67
== END 2018-04-27 19:17 | disposition home or self-care (01) ==
LOC: EDUNIT# 18:43 → ER 18:44
DX: M26.621 Arthralgia of right temporomandibular joint (principal); J45.909 Unspecified asthma, uncomplicated; Z87.42 Personal history of other diseases of the female genital tract; F41.9 Anxiety disorder, unspecified; F31.9 Bipolar disorder, unspecified; Z77.22 Contact with and (suspected) exposure to environmental tobacco smoke (acute) (chronic); Z90.89 Acquired absence of other organs; Z90.710 Acquired absence of both cervix and uterus; Z88.0 Allergy status to penicillin; Z88.1 Allergy status to other antibiotic agents; W01.198A Fall on same level from slipping, tripping and stumbling with subsequent striking against other object, initial encounter
CPT/HCPCS: 99281

== ENCOUNTER 2018-05-04 08:44 | Outpatient (RCR) | payer OTHER | END 2018-05-14 09:11 | disposition home or self-care (01) | PROVIDERS: ATTEND Obstetrics & Gynecology | DX: R10.2 Pelvic and perineal pain (principal) ==

== ENCOUNTER 2018-08-05 20:10 | Emergency (ER) | payer OTHER ==
[~2018-08-05] VITALS: Ht 167.6 cm; Wt 63.5 kg
[~2018-08-05 20:10] MED LIST changes: +HYDR-4227 PO; -HYDR-756 PO; -OXCA300T PO; +OXCA300T18 PO
--- OUTSIDE RECORDS SUMMARY | 2018-08-05 20:16 | XMS REPORT ---
Author Author TOMASZ MARGARITA [facility] Address [address] [place] [address] Care Team Providers Care Truck Technician Name Role Phone Mahad TOLBERTYEN Unavailable PROBLEMS Type Condition ICD9-CM Code [id number] Code Onset Dates Condition Status SNOMED Code Problem Generalized anxiety disorder F41.1 Active 67199770 Problem Acute non intractable tension-type headache G44.209 Active 157914349 Problem Acute right-sided low back pain with right-sided sciatica M54.41 Active 246037629 Problem Post traumatic stress disorder F43.10 Active 41753211 Problem Bipolar disorder, current episode mixed, moderate F31.62 Active 959421784 Problem Endometriosis N80.9 Active 350316068 Problem Borderline personality disorder F60.3 Active 45802355 ALLERGIES No Information ENCOUNTERS Encounter Location Date Diagnosis [place] [id number] [place] [address] 07947- 8403 Oct, [place] [address] [place] [id number] [place] [address] 29951- 2109 Jul, Bipolar disorder, current episode mixed, moderate F31.62 ; Post traumatic stress disorder F43.10 and Borderline personality disorder F60.3 [facility] [address] [place] [address] 60696- 6372 Jun, Bipolar disorder, current episode mixed, moderate F31.62 [facility] [address] [address] [id number] [place] [address] 68182- 2607 May, Palpitations R00.2 [facility] [id number] [place] [address] 53540- 5884 May, Palpitations R00.2 [place] [address] [place] [id number] [place] [address] 81462- 8306 May, Palpitations R00.2 and Frequent bowel movements R19.4 [facility] [address] [id number] [place] [address] 00385- 5195 May, Bipolar disorder, current episode mixed, moderate F31.62 ; Post traumatic stress disorder F43.10 and Borderline personality disorder F60.3 [facility] [address] [place] [address] [id number] 15 Apr, 2018 Dental examination Z01.20 [facility] [id number] [place] [address] 25890 -6457 Apr, [facility] [address] 15979- 4060 Apr, Dental examination Z01.20 [facility] [address] [place] [address] [id number] [place] [address] 81381 -5977 Apr, Tooth pain K08.89 [place] [address] 16401- 4275 06 Apr, 2018 Bipolar disorder, current episode mixed, moderate F31.62 ; Post traumatic stress disorder F43.10 and Borderline personality disorder F60.3 [facility] [address] [address] [id number] [place] [address] 62648 -8762 March, Abdominal pain R10.9 ; UTI symptoms R39.9 and Other microscopic hematuria R31.29 [place] [address] [place] [id number] [place] [address] 67604- 3663 March, [facility] [address] [place] [id number] [place] [address] 61521- 7367 March, Bipolar disorder, current episode mixed, moderate F31.62 ; Post traumatic stress disorder F43.10 and Borderline personality disorder F60.3 [facility] [address] [place] [id number] [place] [address] 39456- 3596 Feb, Encounter for immunization Z23 [place] [address] 71284- 0603 Feb, Bipolar disorder, current episode mixed, moderate F31.62 ; Post traumatic stress disorder F43.10 and Borderline personality disorder F60.3 [place] [address] [place] [id number]- 0109 Feb, Bipolar disorder, current episode mixed, moderate F31.62 ; Post traumatic stress disorder F43.10 ; Borderline personality disorder F60.3 and Other correction (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 Z79.899 [place] [address] [place] 039195- 8849 Jan, Encounter for immunization Z23 [place] [address] 692176- 7428 Jan, [place] [address] 785058- 6868 Jan, Bipolar disorder, current episode mixed, moderate F31.62 [facility] [address] 47132 -8541 Jan, Lumbar back pain M54.5 [place] [address] 54857- 2239 Dec, Low back pain M54.5 [place] [address] 01344- 3040 Dec, Bipolar disorder, current episode mixed, moderate F31.62 [place] [address] [place] [id number] [place] [address] 34006- 2547 Dec, Generalized anxiety disorder F41.1 and Bipolar disorder, current episode mixed, moderate F31.62 [facility] [address] 92602 -6920 Nov, Acute non intractable tension-type headache G44.209 [place] [address] [place] [id number] [place] [address] 66261- 6430 Nov, Bipolar disorder, current episode mixed, moderate F31.62 ; Post traumatic stress disorder F43.10 and Borderline personality disorder F60.3 [facility] [address] [id number] [place] [address] 66124- 7709 Nov, Bipolar disorder, current episode mixed, moderate F31.62 [facility] [address] [place] [address] [id number] [place] [address] 54265 -7532 Nov, Abdominal pain R10.9 ; History of PCOS Z87.42 ; History of endometriosis Z87.42 and Pelvic pain R10.2 [place] [address] 78260- 0282 Nov, [facility] [address] 74133 -3458 Oct, History of PCOS Z87.42 ; History of endometriosis Z87.42 and Pain R52 [place] [address] 77666- 5880 Oct, Bipolar disorder, current episode mixed, moderate F31.62 ; Post traumatic stress disorder F43.10 and Borderline personality disorder F60.3 [place] [address] [place] [id number] [place] [address] 72069- 2886 Oct, Bipolar disorder, current episode mixed, moderate F31.62 [place] [address] [place] [id number] [place] [address] 31121- 6190 Sep, Bipolar disorder, current episode mixed, moderate F31.62 ; Post traumatic stress disorder F43.10 ; Borderline personality disorder F60.3 and Other correction (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 Z79.899 [place] [address] [place] [id number] [place] [address] 79439- 2454 Sep, Bipolar disorder, current episode mixed, moderate F31.62 [facility] [address] [place] [id number] [place] [address] 68932 -6713 Sep, Endometriosis N80.9 and Acute right-sided low back pain with right-sided sciatica M54.41 [place] [address] 39923- 5130 Aug, [facility] [address] [address]- 5480 Aug, Bipolar disorder, current episode mixed, moderate F31.62 ; Post traumatic stress disorder F43.10 and Borderline personality disorder F60.3 [facility] [address] [address]- 3965 11 Aug, 2017 Bipolar disorder, current episode mixed, moderate F31.62 ; Post traumatic stress disorder F43.10 and Borderline personality disorder F60.3 [facility] [address] [place] [address] 44055- 3429 13 Jul, 2017 Bipolar disorder, current episode mixed, moderate F31.62 ; Post traumatic stress disorder F43.10 and Borderline personality disorder F60.3 [facility] [address] [address] 11 Jul, 2017 Pharyngitis, unspecified etiology J02.9 and Streptococcal pharyngitis J02.0 [facility] [address] [place] [address] 72524- 3372 16 Jun, 2017 Bipolar disorder, current episode mixed, moderate F31.62 ; Post traumatic stress disorder F43.10 and Borderline personality disorder F60.3 [facility] [address] [address]- 8730 May, [place] [address] [place] [address] 93121- 2329 May, [facility] [address] [place] [address] 21844- 5165 May, Bipolar disorder, current episode mixed, moderate F31.62 and Generalized anxiety disorder F41.1 [facility] [address] [place] [address] 10323- 9727 March, Bipolar disorder, current episode mixed, moderate F31.62 and Generalized anxiety disorder F41.1 [place] [address] [place] [address] 90168- 5730 March, Pelvic pain R10.2 [facility] [address] [place] [id number] [place] [address] 95621- 4334 March, [facility] [address] [place] [address] [id number] [place] [address]- 0051 Feb, Bipolar disorder, current episode mixed, moderate F31.62 and Generalized anxiety disorder F41.1 [facility] [address] [place] 039199- 3770 Jan, [facility] [address] [place] [id number] [place] [address] 54036- 3298 Jan, Bipolar disorder, current episode mixed, moderate F31.62 [place] [address] [place] [id number] [place] [address] 98897- 3738 Jan, Bipolar disorder, current episode mixed, moderate F31.62 [place] [address] [place] [id number] [place] [address] 76097- 1357 Jan, Bilateral low back pain without sciatica M54.5 [facility] [address] [place] [id number] [place] [address] [id number] Jan, Dental caries K02.9 and Dental examination Z01.20 [facility] [address] [place] [id number] [place] [address] [id number] Jan, Encounter for dental examination and cleaning without abnormal findings Z01.20 [facility] [address] [place] [id number] [place] [address] 09520- 0160 Jan, Bipolar disorder, current episode mixed, moderate F31.62 and Generalized anxiety disorder F41.1 [facility] [address] [place] [id number] [place] [address] 08732- 0642 Dec, [facility] [address] [place] [id number] [place] [address]- 1681 Dec, Bipolar disorder, current episode mixed, moderate F31.62 and Generalized anxiety disorder F41.1 [facility] [address] [place] [id number] [place] [address]- 2546 03 Dec, 2016 Other fatigue R53.83 and Orthostatic hypotension I95.1 [facility] [address] [place] [address] [id number] Nov, Dental examination Z01.20 [facility] [address] [place] [address] 94336 -0232 Nov, Bronchitis J40 [facility] [address] [place] [id number] [place] [address] 99961- 0750 14 Oct, 2016 Generalized anxiety disorder F41.1 [place] [address] [place] [id number] [place] [address] 30627- 6724 14 Sep, 2016 Bipolar disorder, current episode mixed, moderate F31.62 and Generalized anxiety disorder F41.1 [place] [address] [place] [id number] [place] [address] 16317- 2414 Sep, Bipolar disorder, current episode mixed, moderate F31.62 and Generalized anxiety disorder F41.1 [facility] [address] [place] [address] 15121 -3002 08 Jul, 2016 Upper respiratory tract infection, unspecified type J06.9 [place] [address] [place] [id number] [place] [address] 88077- 3986 Jun, Bipolar disorder, current episode mixed, moderate F31.62 and Generalized anxiety disorder F41.1 [place] [address] [place] [address] 41333- 4060 Apr, [place] [address] [place] [id number] [place] [address] 12824- 6979 Apr, Encounter for test, result positive Z32.01 [facility] [address] [place] [id number] [place] [address] 41398- 2993 March, [facility] [address] [place] [id number] [place] [address] 75241- 9663 March, Bipolar disorder, current episode mixed, moderate F31.62 and Generalized anxiety disorder F41.1 [facility] [address] [address]- 7329 March, Bipolar disorder, current episode mixed, moderate F31.62 and Generalized anxiety disorder F41.1 [facility] [address] [address]- 9790 March, [facility] [address] [place] [address] 19952- 7931 March, [facility] [address] [place] [address] 39117- 4620 Feb, [facility] [address] [place] [address] 70141- 3650 Feb, [facility] [address] [place] [id number] [place] [address] 47941- 8496 Feb, Bipolar disorder, current episode mixed, moderate F31.62 and Generalized anxiety disorder F41.1 [facility] [address] [place] [address] 79613- 1264 Jan, Abdominal pain R10.9 [facility] [address] [place] [address] 48954- 2482 Jan, [facility] [address] [place] [address] 87581- 1834 29 Dec, 2015 Dental examination Z01.20 [facility] [address] [place] [address] 25259- 0418 Dec, Dental examination Z01.20 and Dental caries K02.9 [facility] [address] [address]- 4486 15 Dec, 2015 Bipolar disorder, current episode mixed, moderate F31.62 and Generalized anxiety disorder F41.1 [facility] [address], [place] [address]- 3190 Dec, [facility] [address] [place] [address] 07241- 2803 Nov, Bipolar disorder, current episode mixed, moderate F31.62 ; Generalized anxiety disorder F41.1 and Seizure-like activity R56.9 [facility] [address] [place] [id number] [place] [address] 64692- 0408 Oct, [facility] [address] [place] [id number] [place] [address] 84776- 8208 Oct, Bipolar disorder, current episode mixed, moderate F31.62 [facility] [address] 88210- 9703 Oct, Well woman exam Z01.419 ; Encounter [...] Tobacco use Z72.0 and Hot flashes N95.1 [facility] [address] 61145- 6078 Oct, Seizure-like activity R56.9 and Irregular periods N92.6 [place] [address] [place] [id number] [place] [address] 10715- 3126 Oct, Bipolar disorder, current episode mixed, moderate F31.62 ; Generalized anxiety disorder F41.1 and Underweight R63.6 [facility] [address] [place] [address] 13797- 5316 Oct, [facility] [address] 15503- 2613 Oct, Generalized anxiety disorder F41.1 and Unspecified mood [ affective] disorder F39 [facility] [address] [address] [id number] [place] [address] 77494 -4157 Oct, Back pain M54.9 and Anxiety F41.9 [facility] [address] [place] [address] 65762- 5080 Oct, [facility] [id number] [place] [address] 41155 -2665 Sep, Arm pain, left M79.602 [facility] [address] [place] [id number] [place] [address] 11858- 5610 Sep, [facility] [address] [id number] [place] [address] [id number] Sep, Dental examination Z01.20 and Dental caries K02.9 [facility] [address] 52481- 8920 Sep, Generalized anxiety disorder F41.1 and Unspecified episodic mood disorder F39 [facility] [address] [place] [id number] [place] [address] 34209- 0689 Sep, Bilateral low back pain without sciatica M54.5 and Seizure- like activity R56.9 [facility] [address] [place] [id number] [place] [address] 10359- 5534 Aug, [facility] [address] [place] [address] [id number] [place] [address] 57085- 8772 Aug, [facility] [address] [place] [id number] [place] [address] 13372- 0086 Aug, [facility] [address] [place] [id number] [place] [address] 54399- 2563 Aug, Visual changes H53.9 and Bilateral low back pain without sciatica M54.5 [facility] [address] [id number] [place] [address] 46617- 4594 Jul, [facility] [id number] [place] [address] 69837- 7585 Jun, Bipolar I disorder, most recent episode (or current) mixed, moderate 296.62 ; Generalized anxiety disorder 300.02 and High risk medication use V58.69 [facility] [address] [place] [address] 00541- 8798 Jun, [facility] [id number] [place] [address] 64690- 3897 May, [facility] [address] [id number] [place] [address] 00588- 9457 May, Bipolar I disorder, most recent episode (or current) mixed, moderate 296.62 and Generalized anxiety disorder 300.02 [facility] [id number] [place] [address] [id number] May, Dental examination V72.2 [facility] [address] 65167- 3809 March, Bipolar I disorder, most recent episode (or current) mixed, moderate 296.62 and Generalized anxiety disorder 300.02 [facility] [id number] [place] [address] 34510- 2384 March, [facility] [id number] [place] [address] 62890- 2323 March, [facility] [address] [id number] [place] [address] 40979- 5887 March, Underweight 783.22 ; Hand pain, right 729.5 and Reflux gastritis 535.40 [facility] [id number] [place] [address] 40806- 4284 Feb, [facility] [id number] [place] [address] 77557- 4795 Feb, [facility] [id number] [place] [address] 15770- 7596 Jan, [facility] [id number] [place] [address] 49422- 0515 Jan, [facility] [id number] [place] [address] 28236- 4256 16 Jan, 2015 [facility] [id number] [place] [address] 92041- 1941 16 Jan, 2015 [facility] [place] [facility] [address] [id number] [place] [address]- 7196 Jan, [facility] [place] [facility] [address] [id number] [place] 2433 Jan, [facility] [place] [facility] [address] [facility] [id number] [place] [address]- 3259 Jan, 2014 [facility] [place] [facility] [address] [facility] [id number] [place] [address]- 8352 05 Jan, 2014 [facility] [place] [facility] [address] [facility] [id number] [place] [address]- 6796 Jan, [facility] [place] [facility] [address] [facility] [id number] [place] [address]- 1038 Jan, [facility] [place] [facility] [address] [facility] [id number], [place] [address]- 6238 Jan, [facility] [place] [facility] [address] [facility] [id number], [place] [address]- 4661 Jan, [facility] [place] [facility] [address] [facility] [id number], [place] [address]- 4138 Dec, 2014 [facility] [place] [facility] [address] [facility] [id number], [place] [address]- 4213 Dec, 2014 [facility] [place] [facility] [address] [facility] [id number], [place] [address]- 3718 Dec, 2014 [facility] [place] [facility] [address] [facility] [id number], [place] [address]- 8984 Dec, 2014 [facility] [place] [facility] [address] [facility] [id number], [place] [address]- 5813 18 Dec, 2014 [facility] [place] [facility] [address] [facility] [id number], [place] [address]- 5316 Dec, 2014 [facility] [place] [facility] [address] [facility] [id number], [place] [address]- 4602 Dec, 2014 [facility] [place] [facility] [address] [id number] [place] [address]- 9986 Dec, 2014 [facility] [place] [facility] [address] [id number] [place] [address]- 8513 Dec, 2014 [facility] [place] [facility] [address] [id number] [place] [address]- 3716 Dec, 2014 [facility] [place] [facility] [address] [id number] [place] [address]- 7041 Dec, 2014 [facility] [place] [facility] [address] [id number] [place] [address]- 4473 Dec, 2014 [facility] [place] [facility] [address] [id number] [place] [address]- 0505 Dec, 2014 [facility] [place] [facility] [address] [id number] [place] [address]- 9624 Dec, 2014 [facility] [place] [facility] [address] [id number] [place] [address]- 2672 Dec, 2014 [facility] [place] [facility] [address] [id number] [place] [address]- 2845 Dec, 2014 [facility] [place] [facility] [address] [id number] [place] [address]- 1416 Dec, 2014 [facility] [place] [facility] [address] [id number] [place] [address]- 5064 Dec, 2014 [facility] [place] [facility] [address] [id number] [place] [address]- 9590 Dec, 2014 [facility] [place] [facility] [address] [id number] [place] [address]- 6393 Nov, [facility] [place] [facility] [address] [id number] [place] [address]- 6580 Nov, [facility] [place] [facility] [address] [id number] [place] [address]- 2783 Nov, [facility] [place] [facility] [address] [id number] [place] [address]- 8226 Nov, [facility] [address] [id number] [place] [address]- 6916 Nov, [facility] [address] [id number] [place] [address]- 2546 Nov, [facility] [address] [id number] [place] [address] Nov, [facility] [place] [facility] [address] [id number] [place] [address]- 2546 Nov, [facility] [address] [id number] [place] [address]- 2546 Nov, [facility] [address] [id number] [place] [id number] Nov, [facility] [address] [id number] [place] [address] Nov, [facility] [address] [id number] [place] [address] Nov, [facility] [address] [id number] [place] [address] Oct, [facility] [address] [id number] [place] [address] Oct, [facility] [place] [facility] [address] [id number] [place] [address] Oct, [facility] [place] [facility] [address] [id number] [place] [address] 30 Oct, 2014 [facility] [place] [facility] [address] [id number] [place] [address] Oct, [facility] [place] [facility] [address] [id number] [place] [address] Oct, [facility] [place] [facility] [address] [id number] [place] [address] Oct, [facility] [place] [facility] [address] [id number] [place] [address] Oct, [facility] [place] [facility] [address] [id number] [id number] Oct, [facility] [place] [facility] [address] [id number] [place] [address] Oct, [facility] [place] [facility] [address] [id number] [place] [address] Oct, [facility] [place] [facility] [address] [id number] [place] [address] Oct, [facility] [place] [facility] [address] [id number] [place] [address] Sep, [facility] [place] [facility] [address] [id number] [place] [address] Sep, [facility] [place] [facility] [address] [id number] [place] [address] Sep, [facility] [place] [facility] [address] [id number] [place] [address] Sep, [facility] [place] [facility] [address] [id number] [place] [address] Sep, [facility] [place] [facility] [address] [id number] [place] [address] Sep, [facility] [place] [facility] [address] [id number] [place] [address]- [address] Sep, [facility] [place] [facility] [address] [id number] [place] [address] Sep, [facility] [place] [facility] [address] [id number] [place] [address] 4[address] Aug, [facility] [place] [facility] [address] [id number] [place] [address] 3072 Aug, [facility] [place] [facility] [address] [id number] [place] [address] Aug, [facility] [place] [facility] [address] [id number] [place] [address] 7507 Aug, [facility] [place] [facility] [address] [id number] [place] [address] 6689 Aug, [facility] [place] [facility] [address] [id number] [place] [address]- 1878 Aug, [facility] [place] [facility] [address] [id number] [place] [address]- 5277 Aug, [facility] [place] [facility] [address] [id number] [place] [address]- 7900 Aug, [facility] [place] [facility] [address] [id number] [place] [address]- 1660 Aug, [facility] [place] [facility] [address] [id number] [place] [address]- 6088 Aug, [facility] [place] [facility] [address] [id number] [place] [address]- 0263 Aug, [facility] [place] [facility] [address] [id number] [place] [address]- 5107 Aug, [facility] [place] [facility] [address] [id number] [place] [address]- 1014 Aug, [facility] [place] [facility] [address] [id number], [place] [address] Jul, [facility] [place] [facility] [address] [id number], [place] [address] 22 Jul, 2014 [facility] [place] [facility] [address] [id number] [place] [address]- 5157 Jul, [facility] [place] [facility] [address] [id number] [place] [address]- 5640 Jul, [facility] [place] [facility] [address] [id number] [place] [address]- 1607 Jun, [facility] [place] [facility] [address] [id number] [place] [address]- 8640 Jun, [facility] [place] [facility] [address] [id number] [place] [address]- 2355 Jun, [facility] [place] [facility] [address] [id number] [place] [address]- 1053 Jun, [facility] [place] [facility] [address] [id number] [place] [address]- 1612 Jun, [facility] [place] [facility] [address] [id number] [place] [address]- 3216 Jun, [facility] [place] [facility] [address] [id number] [place] [address]- 7877 May, [facility] [place] [facility] [address] [id number] [place] [address]- 4125 May, [facility] [place] [facility] [address] [id number] [place] [address]- 3173 May, [facility] [place] [facility] [address] [id number] [place] [address]- 0778 May, [facility] [place] [facility] [address] [id number] [place] [address]- 4793 Apr, [facility] [place] [facility] [address] [id number] [place] [address]- 5458 Apr, [facility] [place] [facility] [address] [id number] [place] [address]- 4843 March, [facility] [place] [facility] [address] [id number] [place] [address]- 7744 March, [facility] [place] [facility] [address] [id number] [place] [address]- 1573 March, [facility] [place] [facility] [address] [id number] [place] [address]- 7099 March, [facility] [place] [facility] [address] [id number] [place] [address]- 0660 March, [facility] [place] [facility] [address] [id number] [place] [address]- 3946 March, [facility] [place] [facility] [address] [id number] [place] [address]- 6070 Feb, [facility] [place] [facility] [address] [id number] [place] [address]- 3847 Feb, [facility] [place] [facility] [address] [id number] [place] [address]- 8044 Dec, [facility] [place] [facility] [address] [id number] [place] [address]- 2914 Dec, [facility] [place] [facility] [address] [id number] [place] [address]- 4600 Nov, [facility] [place] [facility] [address] [id number] [place] [address]- 7648 Nov, [facility] [place] [facility] [address] [id number] [place] [address]- 8750 Sep, [facility] [place] [facility] [address] [id number] [place] [address]- 0151 Sep, [facility] [place] [facility] [address] [id number] [place] [address]- 9896 Sep, [facility] [place] [facility] [address] [id number], [place] [address]- 4472 Sep, [facility] [place] [facility] [address] [id number], [place] [address]- 9078 Sep, [facility] [place] [facility] [address] [id number] [place] [address]- 2602 Sep, [facility] [place] [facility] [address] [id number] [place] [address]- 3076 Sep, [facility] [place] [facility] [address] [id number] [place] [address]- 0332 Aug, [facility] [place] [facility] [address] [id number] [place] [address]- 9518 30 Aug, 2013 [facility] [address] [id number] [place] [address]- 8013 Aug, [facility] [place] [facility] [address] [id number] [place] [address]- 0310 Aug, [facility] [place] [facility] [address] [id number] [place] [address]- 4723 Aug, [facility] [place] [facility] [address] [id number] [place] [address]- 0376 Aug, [facility] [place] [facility] [address] [id number] [place] [address]- 0366 Jul, [facility] [place] [facility] [address] [id number] [place] [address]- 4502 Jul, [facility] [place] [facility] [address] [id number] [place] [address]- 1688 16 Jul, 2013 [facility] [place] [facility] [address] [id number] [place] [address]- 0980 Jul, [facility] [place] [facility] [address] [id number] [place] [address]- 8930 Jun, [facility] [place] [facility] [address] [id number] [place] [address]- 1558 Jun, [facility] [place] [facility] [address] [id number] [place] [address]- 6398 Jun, [facility] [place] [facility] [address] [id number] [place] [address]- 0641 Jun, [facility] [place] [facility] [address] [id number] [place] [address]- 8979 Jun, [facility] [place] [facility] [address] [id number] [place] [address]- 9485 Jun, [facility] [place] [facility] [address] [id number] [place] [address]- 9108 Jun, [facility] [place] [facility] [address] [id number] [place] [address]- 5880 May, [facility] [place] [facility] [address] [id number] [place] [address]- 4625 23 May, 2013 [facility] [place] [facility] [address] [id number] [place] [address]- 5266 16 May, 2013 [facility] [place] [facility] [address] [id number] [place] [address]- 8217 15 May, 2013 [facility] [place] [facility] [address] [id number] [place] [address]- 8942 13 May, 2013 [facility] [place] [facility] [address] [id number] [place] [address]- 7878 05 May, 2013 [facility] [place] [facility] [address] [id number] [place] [address]- 6926 May, [facility] [place] [facility] [address] [id number] [place] [address]- 1667 28 Apr, 2013 [facility] [place] [facility] [address] [id number] [place] [address]- 4747 Apr, [facility] [place] [facility] [address] [id number] [place] [address]- 9376 Apr, [facility] [place] [facility] [address] [id number] [place] [address]- 2397 Apr, [facility] [place] [facility] [address] [id number] [place] [address]- 3380 Apr, [facility] [place] [facility] [address] [id number] [place] [address]- 9619 Apr, [facility] [place] [facility] [address] [id number] [place] [address]- 9736 Apr, [facility] [place] [facility] [address] [id number] [place] [address]- 8884 18 Apr, 2013 [facility] [place] [facility] [address] [id number] [place] [address]- 4571 17 Apr, 2013 [facility] [place] [facility] [address] [id number] [place] [address]- 6108 14 Apr, 2013 [facility] [place] [facility] [address] [id number] [place] [address]- 0852 14 Apr, 2013 [facility] [place] [facility] [address] [id number] [place] [address]- 1118 11 Apr, 2013 [facility] [place] [facility] [address] [id number] [place] [address]- 0526 10 Apr, 2013 [facility] [place] [facility] [address] [id number] [place] [address]- 9418 09 Apr, 2013 [facility] [place] [facility] [address] [id number] [place] [address]- 5296 07 Apr, 2013 [facility] [place] [facility] [address] [id number] [place] [address]- 6213 06 Apr, 2013 [facility] [place] [facility] [address] [id number] [place] [address]- 0223 06 Apr, 2013 [facility] [place] [facility] [address] [id number] [place] [address]- 9608 05 Apr, 2013 [facility] [place] [facility] [address] [id number] [place] [address]- 4204 Apr, [facility] [place] [facility] [address] [id number] [place] [address]- 0520 March, [facility] [place] [facility] [address] [id number] [place] [address]- 7623 March, [facility] [place] [facility] [address] [id number] [place] [address]- 2543 March, [facility] [place] [facility] [address] [id number] [place] [address]- 4944 March, [facility] [place] [facility] [address] [id number] [place] [address]- 7638 March, [facility] [place] [facility] [address] [id number] [place] [address]- 2782 March, [facility] [address] [id number] [place] [address]- 5178 March, [facility] [address] [id number] [place] [address]- 8032 Feb, [facility] [address] [id number] [place] [address]- 9330 Feb, [facility] [address] [id number] [place] [address]- 7385 27 Jan, 2013 [facility] [address] [id number] [place] [address]- 0583 18 Jan, 2013 [facility] [address] [id number] [place] [address]- 5850 15 Jan, 2013 [facility] [address] [id number] [place] [address]- 8351 14 Jan, 2013 [facility] [address] [id number] [place] [address]- 5803 13 Jan, 2013 [facility] [address] [id number] [place] [address]- 5682 12 Jan, 2013 [facility] [address] [id number] [place] [address]- 9800 11 Jan, 2013 [facility] [address] [id number] [place] [address]- 2911 09 Jan, 2013 [facility] [address] [id number] [place] [address]- 7636 08 Jan, 2013 [facility] [address] [id number] [place] [address]- 4185 07 Jan, 2013 [facility] [address] [id number] [place] [address]- 3076 06 Jan, 2013 [facility] [address] [id number] [place] [address]- 5638 Nov, [facility] [place] [facility] [address] [id number] [place] [address]- 3695 Oct, [facility] [place] [facility] [address] [id number] [place] [address]- 0576 Oct, [facility] [place] [facility] [address] [id number] [place] [address]- 2319 Oct, [facility] [place] [facility] [address] [id number] [place] [address]- 1655 Oct, [facility] [place] [facility] [address] [id number] [place] [address]- 8847 Sep, [facility] [place] [facility] [address] [id number] [place] [address]- 1211 Sep, [facility] [place] [facility] [address] [id number] [place] [address]- 9051 Sep, [facility] [place] [facility] [address] [id number] [place] [address]- 6650 Sep, [facility] [place] [facility] [address] [id number] [place] [address]- 5702 Sep, [facility] [place] [facility] [address] [id number] [place] [address]- 4127 Sep, [facility] [place] [facility] [address] [id number], [place] [address]- 2424 Sep, [facility] [place] [facility] [address] [id number], [place] [address]- 0100 Sep, [facility] [place] [facility] [address] [id number] [place] [address]- 7702 Sep, [facility] [place] [facility] [address] [id number], [place] [address]- 3544 Sep, [facility] [place] [facility] [address] [facility] [id number], [place] [address]- 9054 Sep, [facility] [place] [facility] [address] [id number], [place] [address]- 9470 Aug, [facility] [place] [facility] [address] [id number] [place] [address]- 7133 Aug, [facility] [place] [facility] [address] [id number] [place] [address]- 0959 Aug, [facility] [place] [facility] [address] [id number] [place] [address]- 5172 28 Jul, 2012 [facility] [place] [facility] [address] [id number] [place] [address]- 4292 25 Jul, 2012 [facility] [place] [facility] [address] [id number] [place] [address]- 4390 19 Jul, 2012 [facility] [place] [facility] [address] [id number] [place] [address]- 3534 17 Jul, 2012 [facility] [place] [facility] [address] [id number] [place] [address]- 5421 20 Jun, 2012 [facility] [place] [facility] [address] [id number] [place] [address]- 2174 16 Jun, 2012 [facility] [place] [facility] [address] [facility] [id number] [place] [address]- 8096 15 Jun, 2012 [facility] [place] [facility] [address] [facility] [id number] [place] [address]- 7934 15 Jun, 2012 [facility] [place] [facility] [address] [id number] [place] [address]- 3654 Jun, [facility] [place] [facility] [address] [id number] [place] [address]- 4463 March, [facility] [place] [facility] [address] [id number] [place] [address]- 2219 Feb, [facility] [place] [facility] [address] [id number] [place] [address]- 2343 Jan, [facility] [place] [facility] [address] [facility] [id number] [place] [address]- 8584 Jan, [facility] [place] [facility] [address] [id number] [place] [address]- 2730 22 Jan, 2012 [facility] [place] [facility] [address] [id number] [place] [address]- 9886 14 Jan, 2012 [facility] [place] [facility] [address] [id number] [place] [address]- 5276 14 Jan, 2012 [facility] [place] [facility] [address] [id number] [place] [address]- 7041 14 Jan, 2012 [facility] [place] [facility] [address] [id number] [place] [address]- 5080 28 Dec, 2011 [facility] [place] [facility] [address] [id number] [place] [address]- 4388 27 Dec, 2011 [facility] [place] [facility] [address] [id number] [place] [address]- 5676 23 Dec, 2011 [facility] [place] [facility] [address] [id number] [place] [address]- 6920 21 Dec, 2011 [facility] [place] [facility] [address] [id number] [place] [address]- 8999 20 Dec, 2011 [facility] [place] [facility] [address] [facility] [id number] [place] [address]- 2753 19 Dec, 2011 [facility] [place] [facility] [address] [facility] [id number] [place] [address]- 7601 17 Dec, 2011 [facility] [place] [facility] [address] [id number] [place] [address]- 3278 16 Dec, 2011 [facility] [place] [facility] [address] [id number] [place] [address]- 6190 31 Nov, 2011 [facility] [place] [facility] [address] [id number] [place] [address]- 3376 Oct, [facility] [place] [facility] [address] [id number] [place] [address]- 3461 18 Sep, 2011 [facility] [place] [facility] [address] [id number], [place] [address]- 4296 Sep, [facility] [address] [id number], [place] [address]- 5714 Sep, [facility] [address] [id number], [place] [address]- 5308 Sep, [facility] [address] [facility] [id number], [place] [address]- 3056 Sep, [facility] [address] [id number], [place] [address]- 0049 Sep, [facility] [address] [id number] [address] Jan, [facility] [address] [id number] [address] 3073 Apr, IMMUNIZATIONS No Known Immunizations SOCIAL HISTORY Never Assessed REASON FOR VISIT klonopin refill PLAN OF CARE VITAL SIGNS MEDICATIONS Medication Instructions Dosage Frequency Start Date End Date Duration Status Klonopin 0.5 MG Orally 4 times a day as needed 1 tablet 30 days Active RESULTS No Results PROCEDURES [...]
--- OUTSIDE RECORDS SUMMARY | 2018-08-05 20:17 | XMS REPORT ---
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 Name Role Phone JOANNA MCCLURETA Unavailable PROBLEMS Type Condition ICD9-CM Code UTH08-YT Code Onset Dates Condition Status SNOMED Code Problem Generalized anxiety disorder F41.1 Active 31114977 Problem Acute non intractable tension-type headache G44.209 Active 655969153 Problem Acute right-sided low back pain with right-sided sciatica M54.41 Active 289863331 Problem Post traumatic stress disorder F43.10 Active 58526293 Problem Bipolar disorder, current episode mixed, moderate F31.62 Active 121377057 Problem Endometriosis N80.9 Active 707197899 Problem Borderline personality disorder F60.3 Active 92696804 ALLERGIES Substance Reaction Event Type Date Status Thioridazine HCl tachycardia Drug Allergy May, Active Pristiq Unknown Drug Allergy May, Active Penicillin V Potassium rash Drug Allergy May, Active Diclofenac Sodium nausea Drug Allergy May, Active Depakote fatigue Drug Allergy May, Active ENCOUNTERS Encounter Location Date Diagnosis [place] [id number] [place] [address] 56450- 1126 Oct, [facility] [id number] [place] [address] 00115- 1851 Jul, Bipolar disorder, current episode mixed, moderate F31.62 ; Post traumatic stress disorder F43.10 and Borderline personality disorder F60.3 [facility] [address] [place] [address] 21262- 5899 Jun, Bipolar disorder, current episode mixed, moderate F31.62 [place] [address] [place] [address] 38007- 2702 May, Palpitations R00.2 [place] [id number] [place] [address] 98461- 6936 13 May, 2018 Palpitations R00.2 [facility] [id number] [place] [address] 12679- 4905 12 May, 2018 Palpitations R00.2 and Frequent bowel movements R19.4 [facility] [id number] [place] [address] 66578- 5723 05 May, 2018 Bipolar disorder, current episode mixed, moderate F31.62 ; Post traumatic stress disorder F43.10 and Borderline personality disorder F60.3 [facility] [id number] [place] [address] [id number] 15 Apr, 2018 Dental examination Z01.20 [facility] [id number] [place] [address] 25737 -7386 15 Apr, 2018 [facility] [id number] [place] [address] 50440- 8347 15 Apr, 2018 Dental examination Z01.20 [facility] [id number] [place] [address] 91771 -6778 15 Apr, 2018 Tooth pain K08.89 [facility] [id number] [place] [address] 67116- 2506 06 Apr, 2018 Bipolar disorder, current episode mixed, moderate F31.62 ; Post traumatic stress disorder F43.10 and Borderline personality disorder F60.3 [facility] [address] [place] [address] 30705 -5941 March, Abdominal pain R10.9 ; UTI symptoms R39.9 and Other microscopic hematuria R31.29 [facility] [id number] [place] [address] 98774- 1270 March, [facility] [id number] [place] [address] 26838- 9829 March, Bipolar disorder, current episode mixed, moderate F31.62 ; Post traumatic stress disorder F43.10 and Borderline personality disorder F60.3 [facility] [id number] [place] [address] 30967- 9122 30 Feb, 2018 Encounter for immunization Z23 [facility] [address] 60119- 1851 16 Feb, 2018 Bipolar disorder, current episode mixed, moderate F31.62 ; Post traumatic stress disorder F43.10 and Borderline personality disorder F60.3 [place] [address] 75630- 8082 Feb, Bipolar disorder, current episode mixed, moderate F31.62 ; Post traumatic stress disorder F43.10 ; Borderline personality disorder F60.3 and Other meterman (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 Z79.899 [place] [address] 54914- 2366 Jan, Encounter for immunization Z23 [place] [id number] [place] [address] 09521- 7558 Jan, [place] [address] 70878- 2987 Jan, Bipolar disorder, current episode mixed, moderate F31.62 [facility] [address] 25608 -3427 Jan, Lumbar back pain M54.5 [place] [id number] [place] [address] 72101- 9109 Dec, Low back pain M54.5 [place] [address] 88966- 0034 13 Dec, 2017 Bipolar disorder, current episode mixed, moderate F31.62 [place] [address] 17313- 4118 Dec, Generalized anxiety disorder F41.1 and Bipolar disorder, current episode mixed, moderate F31.62 [facility] [id number] [place] [address] 34865 -8579 Nov, Acute non intractable tension-type headache G44.209 [place] [address] [place] [address] 40166- 1935 Nov, Bipolar disorder, current episode mixed, moderate F31.62 ; Post traumatic stress disorder F43.10 and Borderline personality disorder F60.3 [place] [id number] [place] [address] 10603- 2669 Nov, Bipolar disorder, current episode mixed, moderate F31.62 [facility] [place] [id number] [place] [address] 74166 -0635 Nov, Abdominal pain R10.9 ; History of PCOS Z87.42 ; History of endometriosis Z87.42 and Pelvic pain R10.2 [place] [id number] [place] [address] 53450- 1919 Nov, [facility] [place] [id number] [place] [address] 64460 -4677 Oct, History of PCOS Z87.42 ; History of endometriosis Z87.42 and Pain R52 [place] [id number] [place] [address] 08780- 9582 Oct, Bipolar disorder, current episode mixed, moderate F31.62 ; Post traumatic stress disorder F43.10 and Borderline personality disorder F60.3 [place] [address] [place] [address] 54056- 9423 Oct, Bipolar disorder, current episode mixed, moderate F31.62 [place] [id number] [place] [address] 11679- 0264 Sep, Bipolar disorder, current episode mixed, moderate F31.62 ; Post traumatic stress disorder F43.10 ; Borderline personality disorder F60.3 and Other meterman (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 Z79.899 [place] [address] [place] [address] 84428- 3049 Sep, Bipolar disorder, current episode mixed, moderate F31.62 [facility] [id number] [place] [address] 50408 -3397 Sep, Endometriosis N80.9 and Acute right-sided low back pain with right-sided sciatica M54.41 [facility] [id number] [place] [address] 28206- 0424 Aug, [facility] [id number] [place] [address] 26707- 3177 Aug, Bipolar disorder, current episode mixed, moderate F31.62 ; Post traumatic stress disorder F43.10 and Borderline personality disorder F60.3 [facility] [id number] [place] [address] 60853- 6790 11 Aug, 2017 Bipolar disorder, current episode mixed, moderate F31.62 ; Post traumatic stress disorder F43.10 and Borderline personality disorder F60.3 [place] [id number] [place] [address] 18940- 3954 13 Jul, 2017 Bipolar disorder, current episode mixed, moderate F31.62 ; Post traumatic stress disorder F43.10 and Borderline personality disorder F60.3 [facility] [address] [place] [address] 33499 -8356 11 Jul, 2017 Pharyngitis, unspecified etiology J02.9 and Streptococcal pharyngitis J02.0 [facility] [address] [place] [address] 05061- 4727 16 Jun, 2017 Bipolar disorder, current episode mixed, moderate F31.62 ; Post traumatic stress disorder F43.10 and Borderline personality disorder F60.3 [facility] [address] [place] [address] 61150- 4708 May, [facility] [id number] [place] [address] 71446- 2272 May, [facility] [id number] [place] [address] 04597- 4680 17 May, 2017 Bipolar disorder, current episode mixed, moderate F31.62 and Generalized anxiety disorder F41.1 [facility] [id number] [place] [address] 37989- 5145 March, Bipolar disorder, current episode mixed, moderate F31.62 and Generalized anxiety disorder F41.1 [facility] [id number] [place] [phone]18 March, Pelvic pain R10.2 [facility] [id number] [place] [address] 85628- 0999 March, [facility] [id number] [place] [address] 56264- 4584 Feb, Bipolar disorder, current episode mixed, moderate F31.62 and Generalized anxiety disorder F41.1 [facility] [address] 233853- 1810 Jan, [facility] [id number] [place] [address] 09399- 7521 Jan, Bipolar disorder, current episode mixed, moderate F31.62 [facility] [id number] [place] [address] 78947- 1211 Jan, Bipolar disorder, current episode mixed, moderate F31.62 [facility] [id number] [place] [address] 21503- 3203 Jan, Bilateral low back pain without sciatica M54.5 [facility] [id number] [place] [address] [id number] Jan, Dental caries K02.9 and Dental examination Z01.20 [facility] [id number] [place] [address] [id number] Jan, Encounter for dental examination and cleaning without abnormal findings Z01.20 [facility] [id number] [place] [address] 86613- 2068 Jan, Bipolar disorder, current episode mixed, moderate F31.62 and Generalized anxiety disorder F41.1 [facility] [id number] [place] [address] 20432- 9514 Dec, [facility] [id number] [place] [address] 93860- 1704 06 Dec, 2016 Bipolar disorder, current episode mixed, moderate F31.62 and Generalized anxiety disorder F41.1 [place] [id number] [place] [address] 08293- 1287 03 Dec, 2016 Other fatigue R53.83 and Orthostatic hypotension I95.1 [facility] [address] [place] [address] [id number] Nov, Dental examination Z01.20 [facility] [id number] [place] [address] 40075 -7035 Nov, Bronchitis J40 [place] [address] 19070- 7746 14 Oct, 2016 Generalized anxiety disorder F41.1 [place] [id number] [place] [address] 82831- 1312 14 Sep, 2016 Bipolar disorder, current episode mixed, moderate F31.62 and Generalized anxiety disorder F41.1 [place] [id number] [place] [address] 83564- 5073 Sep, Bipolar disorder, current episode mixed, moderate F31.62 and Generalized anxiety disorder F41.1 [facility] [address] [place] [address] 16824 -8470 08 Jul, 2016 Upper respiratory tract infection, unspecified type J06.9 [place] [id number] [place] [address] 98084- 7973 Jun, Bipolar disorder, current episode mixed, moderate F31.62 and Generalized anxiety disorder F41.1 [place] [id number] [place] [address] 97189- 8987 Apr, [place] [id number] [place] [address] 08906- 7664 Apr, Encounter for test, result positive Z32.01 [place] [address] 86361- 6136 March, [facility] [address] [address]- 9334 March, Bipolar disorder, current episode mixed, moderate F31.62 and Generalized anxiety disorder F41.1 [facility] [address] [address]- 2137 March, Bipolar disorder, current episode mixed, moderate F31.62 and Generalized anxiety disorder F41.1 [facility] [address] [place] [address] 98468- 8085 March, [facility] [address] [place] [id number] [place] [address] 79317- 8526 March, [facility] [id number] [place] [address] 43497- 7639 Feb, [facility] [id number] [place] [address] 63138- 6181 Feb, [facility] [id number] [place] [address] 79576- 7535 Feb, Bipolar disorder, current episode mixed, moderate F31.62 and Generalized anxiety disorder F41.1 [facility] [id number] [place] [address] 60222- 6348 Jan, Abdominal pain R10.9 [facility] [address] [place] [address] 65071- 1894 Jan, [facility] [address] [place] [address] 28427- 4223 29 Dec, 2015 Dental examination Z01.20 [facility] [id number] [place] [address] 65915- 9189 22 Dec, 2015 Dental examination Z01.20 and Dental caries K02.9 [facility] [address] [place] [address] 04019- 5317 15 Dec, 2015 Bipolar disorder, current episode mixed, moderate F31.62 and Generalized anxiety disorder F41.1 [place] [address] [place] [address] 07806- 0816 15 Dec, 2015 [place] [id number] [place] [address] 64718- 1406 Nov, Bipolar disorder, current episode mixed, moderate F31.62 ; Generalized anxiety disorder F41.1 and Seizure-like activity R56.9 [place] [id number] [place] [address] 62753- 4327 Oct, [place] [id number] [place] [address] 00046- 1365 Oct, Bipolar disorder, current episode mixed, moderate F31.[address] 56036- 4043 14 Oct, 2015 Well woman exam Z01.419 [...] Z72.0 and Hot flashes N95.1 [place] [id number] [place] [address] 22994- 2359 09 Oct, 2015 Seizure-like activity R56.9 and Irregular periods N92.6 [place] [id number] [place] [address] 14118- 7932 Oct, Bipolar disorder, current episode mixed, moderate F31.62 ; Generalized anxiety disorder F41.1 and Underweight R63.6 [place] [id number] [place] [address] 94769- 0502 Oct, [place] [id number] [place] [address] 96353- 9033 Oct, Generalized anxiety disorder F41.1 and Unspecified mood [ affective] disorder F39 [facility] [address] [place] [address] 58694 -7059 Oct, Back pain M54.9 and Anxiety F41.9 [facility] [address] [place] [address] 11580- 2591 Oct, [facility] [id number] [place] [address] 46476 -2657 Sep, Arm pain, left M79.602 [facility] [address] [place] [address] 19237- 7241 Sep, [facility] [id number] [place] [address] [id number] Sep, Dental examination Z01.20 and Dental caries K02.9 [facility] [id number] [place] [address] 16700- 1787 Sep, Generalized anxiety disorder F41.1 and Unspecified episodic mood disorder F39 [facility] [id number] [place] [address] 53617- 1856 Sep, Bilateral low back pain without sciatica M54.5 and Seizure- like activity R56.9 [facility] [address] [place] [address] 16198- 8194 Aug, [facility] [id number] [place] [address] 54042- 3220 Aug, [facility] [id number] [place] [address] 90235- 6244 Aug, [facility] [id number] [place] [address] 04942- 5731 Aug, Visual changes H53.9 and Bilateral low back pain without sciatica M54.5 [facility] [id number] [place] [address] 59453- 8497 Jul, [facility] [id number] [place] [address] 69026- 9321 Jun, Bipolar I disorder, most recent episode (or current) mixed, moderate 296.62 ; Generalized anxiety disorder 300.02 and High risk medication use V58.69 [facility] [id number] [place] [address] 41114- 4599 Jun, [facility] [id number] [place] [address] 04026- 0144 May, [facility] [id number] [place] [address] 51920- 9412 May, Bipolar I disorder, most recent episode (or current) mixed, moderate 296.62 and Generalized anxiety disorder 300.02 [facility] [id number] [place] [address] [id number] May, Dental examination V72.2 [facility] [id number] [place] [address] 86769- 8844 March, Bipolar I disorder, most recent episode (or current) mixed, moderate 296.62 and Generalized anxiety disorder 300.02 [facility] [id number] [place] [address] 01865- 9135 March, [facility] [id number] [place] [address] 05719- 8651 March, [facility] [id number] [place] [address] 69346- 2923 March, Underweight 783.22 ; Hand pain, right 729.5 and Reflux gastritis 535.40 [facility] [address] [place] [address] 99976- 4315 Feb, [facility] [id number] [place] [address] 80327- 8957 Feb, [facility] [id number] [place] [address] 00171- 1534 Jan, [facility] [id number] [place] [address] 40817- 4349 Jan, [facility] [place] [facility] [address] [id number] [place] [address]- 6968 Jan, [facility] [place] [facility] [address] [id number] [place] [address]- 3975 16 Jan, 2015 [facility] [place] [facility] [address] [id number] [place] [address]- 7250 Jan, [facility] [place] [facility] [address] [id number] [place] [address]- 9796 Jan, [facility] [place] [facility] [address] [id number] [place] [address]- 3323 Jan, [facility] [place] [facility] [address] [id number] [place] [address]- 3107 Jan, [facility] [place] [facility] [address] [facility] [id number] [place] [address]- 2527 Jan, [facility] [place] [facility] [address] [id number] [place] [address]- 0972 Jan, [facility] [place] [facility] [address] [id number] [place] [address]- 3466 Jan, [facility] [place] [facility] [address] [id number] [place] [address]- 1614 Jan, [facility] [place] [facility] [address] [id number] [place] [address]- 5525 Dec, 2014 [facility] [place] [facility] [address] [id number] [address]- 1489 Dec, 2014 [facility] [place] [facility] [address] [id number] [place] [address]- 6960 Dec, [facility] [place] [facility] [address] [id number] [place] [address]- 8207 Dec, 2014 [facility] [place] [facility] [address] [facility] [id number] [place] [address]- 5082 18 Dec, 2014 [facility] [place] [facility] [address] [id number] [place] [address] 2548 Dec, 2014 [facility] [place] [facility] [address] [id number] [place] [address]- 5246 Dec, 2014 [facility] [place] [facility] [address] [id number] [place] [address]- 2546 Dec, 2014 [facility] [place] [facility] [address] [id number] [place] [address]- 2543 Dec, 2014 [facility] [place] [facility] [address] [id number] [place] [address]- 2542 Dec, 2014 [facility] [place] [facility] [address] [id number] [place] [address] 254 Dec, 2014 [facility] [place] [facility] [address] [facility] [id number] [place] [address]- 0519 Dec, 2014 [facility] [place] [facility] [address] [facility] [id number] [place] [address]- 4187 Dec, 2014 [facility] [place] [facility] [address] [facility] [id number] [place] [address]- 5505 Dec, 2014 [facility] [place] [facility] [address] [facility] [id number] [place] [address]- 3183 Dec, 2014 [facility] [place] [facility] [id number] [place] [address]- 3192 Dec, 2014 [facility] [place] [facility] [address] [facility] [id number] [address]- 2549 Dec, 2014 [facility] [place] [facility] [address] [facility] [id number] [place] [address]- 2542 Dec, 2014 [facility] [place] [facility] [address] [facility] [id number] [place] [address] Dec, 2014 [facility] [place] [facility] [address] [facility] [id number] [place] [address] Nov, [facility] [place] [facility] [address] [facility] [id number] [place] [address] Nov, [facility] [place] [facility] [address] [id number] [place] [address] Nov, [facility] [place] [facility] [address] [id number] [place] [address] Nov, [facility] [place] [facility] [address] [id number] [place] [address] Nov, [facility] [place] [facility] [address] [id number] [place] [address] Nov, [facility] [place] [facility] [address] [id number] [place] [id number] Nov, [facility] [place] [facility] [address] [id number] [place] [address] Nov, [facility] [place] [facility] [address] [id number] [place] [address] Nov, [facility] [place] [facility] [address] [id number] [place] [id number] Nov, [facility] [place] [facility] [address] [id number] [place] [address] Nov, [facility] [place] [facility] [address] [id number] [place] [address] Nov, [facility] [place] [facility] [address] [id number] [place] [address] Oct, [facility] [place] [facility] [address] [id number] [address] Oct, [facility] [place] [facility] [address] [id number] [place] [address] Oct, [facility] [place] [facility] [address] [id number] [place] [address] Oct, [facility] [place] [facility] [address] [id number] [place] [address] Oct, [facility] [place] [facility] [address] [id number] [place] [address] Oct, [facility] [place] [facility] [address] [id number] [place] [address] Oct, [facility] [place] [facility] [address] [id number] [place] [address] Oct, [facility] [place] [facility] [address] [id number] [place] [address] Oct, [facility] [place] [facility] [address] [id number] [place] [address] Oct, [facility] [place] [facility] [address] [id number] [place] [address] Oct, [facility] [place] [facility] [address] [id number] [place] [address] Oct, [facility] [place] [facility] [address] [id number] [place] [address] Sep, [facility] [place] [facility] [address] [id number] [place] [address] Sep, [facility] [place] [facility] [address] [id number] [place] [address] Sep, [facility] [place] [facility] [address] [id number] [place] [address] 0071 Sep, [facility] [place] [facility] [address] [id number] [place] [address] Sep, [facility] [place] [facility] [address] [id number] [place] [address] Sep, [facility] [place] [facility] [address] [id number] [place] [address]- 0943 Sep, [facility] [place] [facility] [address] [id number] [place] [address] 7655 Sep, [facility] [place] [facility] [address] [id number] [place] [address] 6110 Aug, [facility] [place] [facility] [address] [id number] [place] [address] 5663 Aug, [facility] [place] [facility] [address] [id number] [place] [address]- 3332 Aug, [facility] [place] [facility] [address] [id number] [place] [address]- 3[address] Aug, [facility] [place] [facility] [address] [id number] [place] [address]- 5157 Aug, [facility] [place] [facility] [address] [id number] [place] [address]- 1550 Aug, [facility] [place] [facility] [address] [id number] [place] [address]- 7508 Aug, [facility] [place] [facility] [address] [id number] [place] [address]- 1109 Aug, [facility] [place] [facility] [address] [id number] [place] [address]- 3084 Aug, [facility] [place] [facility] [address] [id number] [place] [address]- 6556 Aug, [facility] [place] [facility] [address] [id number] [place] [address]- 8774 Aug, [facility] [place] [facility] [address] [id number] [place] [address]- 7693 Aug, [facility] [place] [facility] [address] [id number] [address] 8599 Aug, [facility] [place] [facility] [address] [id number] [place] [address]- 8093 Jul, [facility] [place] [facility] [address] [id number] [place] [address]- 0759 Jul, [facility] [place] [facility] [address] [id number] [place] [address] 19 Jul, 2014 [facility] [place] [facility] [address] [id number] [place] [address]- 8156 Jul, [facility] [place] [facility] [address] [id number] [place] [address]- 3267 Jun, [facility] [place] [facility] [address] [id number] [place] [address]- 6002 Jun, [facility] [place] [facility] [address] [id number] [place] [address]- 3183 Jun, [facility] [place] [facility] [address] [id number] [place] [address]- 9505 Jun, [facility] [place] [facility] [address] [id number] [place] [address]- 6155 Jun, [facility] [place] [facility] [address] [id number] [place] [address]- 3785 Jun, [facility] [place] [facility] [address] [id number] [place] [address]- 0245 May, [facility] [place] [facility] [address] [id number] [place] [address]- 0142 May, [facility] [place] [facility] [address] [id number] [place] [address]- 3887 May, [facility] [place] [facility] [address] [id number] [place] [address]- 2062 May, [facility] [place] [facility] [address] [id number] [place] [address]- 0246 Apr, [facility] [place] [facility] [address] [id number] [place] [address]- 0579 Apr, [facility] [place] [facility] [address] [id number] [place] [address]- 6462 March, [facility] [place] [facility] [address] [id number] [place] [address]- 6365 March, [facility] [place] [facility] [address] [id number] [place] [address]- 2850 March, [facility] [place] [facility] [address] [id number] [place] [address]- 4528 March, [facility] [place] [facility] [address] [id number] [place] [address]- 8980 March, [facility] [place] [facility] [address] [id number] [place] [address]- 76[address] March, [facility] [place] [facility] [address] [id number] [place] [address]- 0502 Feb, [facility] [place] [facility] [address] [id number] [place] [address]- 3728 Feb, [facility] [place] [facility] [address] [id number] [place] [address]- 9452 Dec, [facility] [place] [facility] [address] [id number] [place] [address] Dec, [facility] [place] [facility] [address] [id number] [place] [address]- 4272 Nov, [facility] [place] [facility] [address] [id number] [place] [address]- 2231 Nov, [facility] [place] [facility] [address] [id number] [place] [address]- 0429 Sep, [facility] [place] [facility] [address] [id number] [place] [address]- 7256 Sep, [facility] [place] [facility] [address] [id number] [place] [address]- 2093 Sep, [facility] [place] [facility] [address] [id number] [place] [address]- 6657 Sep, [facility] [place] [facility] [address] [id number] [place] [address]- 7350 Sep, [facility] [place] [facility] [address] [id number] [place] [address]- 6336 Sep, [facility] [place] [facility] [address] [id number] [address]- 8986 Sep, [facility] [place] [facility] [address] [id number] [place] [address]- 7470 Aug, [facility] [place] [facility] [address] [id number] [place] [address]- 2767 Aug, [facility] [place] [facility] [address] [id number] [place] [address]- 6167 Aug, [facility] [place] [facility] [address] [id number] [place] [address]- 9268 Aug, [facility] [place] [facility] [address] [id number] [place] [address]- 7280 Aug, [facility] [place] [facility] [address] [id number] [place] [address]- 6729 Aug, [facility] [place] [facility] [address] [id number] [place] [address]- 8033 Jul, [facility] [place] [facility] [address] [id number] [place] [address]- 2856 Jul, [facility] [place] [facility] [address] [id number] [place] [address]- 9026 16 Jul, 2013 [facility] [place] [facility] [address] [id number] [place] [address]- 1482 Jul, [facility] [place] [facility] [address] [id number] [place] [address]- 2120 Jun, [facility] [place] [facility] [address] [id number] [address]- 6296 Jun, [facility] [place] [facility] [address] [id number] [place] [address]- 7365 Jun, [facility] [place] [facility] [address] [id number] [place] [address]- 3034 Jun, [facility] [place] [facility] [address] [id number] [place] [address]- 5973 Jun, [facility] [place] [facility] [address] [id number] [place] [address]- 4438 Jun, [facility] [address] [id number] [place] [address]- 8345 Jun, [facility] [place] [facility] [address] [id number] [place] [address]- 2468 May, [facility] [address] [id number] [place] [address]- 4695 May, [facility] [address] [id number] [place] [address]- 2063 May, [facility] [address] [id number] [place] [address]- 2254 May, [facility] [address] [id number] [place] [address]- 6304 May, [facility] [address] [id number] [place] [address]- 1442 May, [facility] [address] [id number] [place] [address]- 9351 May, [facility] [address] [id number] [place] [address]- 3274 Apr, [facility] [address] [id number] [place] [address]- 6176 Apr, [facility] [place] [facility] [address] [id number] [place] [address]- 6717 Apr, [facility] [place] [facility] [address] [id number] [place] [address]- 8244 Apr, [facility] [place] [facility] [address] [id number] [place] [address]- 6640 Apr, [facility] [place] [facility] [address] [id number] [place] [address]- 3364 Apr, [facility] [place] [facility] [address] [id number] [place] [address]- 7654 Apr, [facility] [place] [facility] [address] [id number] [place] [address]- 4032 18 Apr, 2013 [facility] [place] [facility] [address] [id number] [place] [address]- 2417 17 Apr, 2013 [facility] [place] [facility] [address] [id number] [place] [address]- 9408 14 Apr, 2013 [facility] [place] [facility] [address] [id number] [place] [address]- 2414 14 Apr, 2013 [facility] [place] [facility] [address] [id number] [place] [address]- 2358 11 Apr, 2013 [facility] [place] [facility] [address] [id number] [place] [address]- 0373 10 Apr, 2013 [facility] [place] [facility] [address] [id number] [place] [address]- 4952 09 Apr, 2013 [facility] [place] [facility] [address] [id number] [place] [address]- 8238 07 Apr, 2013 [facility] [place] [facility] [address] [id number] [place] [address]- 5726 06 Apr, 2013 [facility] [place] [facility] [address] [id number] [place] [address]- 4970 06 Apr, 2013 [facility] [place] [facility] [address] [id number] [place] [address]- 6399 05 Apr, 2013 [facility] [place] [facility] [address] [id number] [place] [address]- 1595 Apr, [facility] [place] [facility] [address] [id number] [place] [address]- 9113 March, [facility] [place] [facility] [address] [id number] [place] [address]- 2126 March, [facility] [place] [facility] [address] [id number] [place] [address]- 2913 March, [facility] [place] [facility] [address] [id number] [place] [address]- 0757 14 Mar, 2013 [facility] [address] [id number] [place] [address]- 6464 March, [facility] [address] [id number] [place] [address]- 6010 March, [facility] [address] [id number] [place] [address]- 8983 March, [facility] [address] [id number] [place] [address]- 0261 Feb, [facility] [address] [id number] [place] [address]- 5046 Feb, [facility] [address] [id number] [place] [address]- 7931 27 Jan, 2013 [facility] [address] [id number] [place] [address]- 4123 18 Jan, 2013 [facility] [address] [id number] [place] [address]- 0873 15 Jan, 2013 [facility] [address] [id number] [place] [address]- 9635 14 Jan, 2013 [facility] [address] [id number] [place] [address]- 8807 Jan, [facility] [address] [id number] [place] [address]- 4785 12 Jan, 2013 [facility] [place] [facility] [address] [id number] [place] [address]- 5627 11 Jan, 2013 [facility] [place] [facility] [address] [id number] [place] [address]- 5025 09 Jan, 2013 [facility] [place] [facility] [address] [id number] [place] [address]- 1162 08 Jan, 2013 [facility] [address] [id number] [place] [address]- 4060 07 Jan, 2013 [facility] [place] [facility] [address] [id number] [place] [address]- 7609 Jan, [facility] [place] [facility] [address] [id number] [place] [address]- 0218 Nov, [facility] [place] [facility] [address] [id number] [place] [address]- 2486 Oct, [facility] [place] [facility] [address] [id number] [place] [address]- 7386 Oct, [facility] [place] [facility] [address] [id number] [place] [address]- 3120 Oct, [facility] [place] [facility] [address] [id number] [place] [address]- 3833 Oct, [facility] [place] [facility] [address] [id number] [place] [address]- 6110 Sep, [facility] [place] [facility] [address] [id number] [place] [address]- 0171 Sep, [facility] [place] [facility] [address] [id number] [place] [address]- 5274 Sep, [facility] [place] [facility] [address] [id number] [place] [address]- 9339 Sep, [facility] [place] [facility] [address] [id number] [place] [address]- 8087 Sep, [facility] [place] [facility] [address] [id number] [place] [address]- 8571 Sep, [facility] [place] [facility] [address] [id number] [place] [address]- 7719 16 Sep, 2012 [facility] [place] [facility] [address] [id number] [place] [address]- 4638 Sep, [facility] [place] [facility] [address] [id number] [place] [address]- 9336 Sep, [facility] [place] [facility] [address] [id number] [place] [address]- 1456 Sep, [facility] [place] [facility] [address] [id number] [place] [address]- 6113 Sep, [facility] [place] [facility] [address] [id number] [place] [address]- 5040 Aug, [facility] [place] [facility] [address] [id number] [place] [address]- 7535 Aug, [facility] [place] [facility] [address] [id number] [place] [address]- 1567 Aug, [facility] [place] [facility] [address] [id number] [place] [address]- 8338 28 Jul, 2012 [facility] [place] [facility] [address] [id number] [place] [address]- 2733 25 Jul, 2012 [facility] [place] [facility] [address] [id number] [place] [address]- 9250 19 Jul, 2012 [facility] [place] [facility] [address] [id number] [place] [address]- 6623 17 Jul, 2012 [facility] [place] [facility] [address] [id number] [place] [address]- 9456 20 Jun, 2012 [facility] [place] [facility] [address] [id number] [place] [address]- 6814 16 Jun, 2012 [facility] [place] [facility] [address] [id number] [place] [address]- 5896 15 Jun, 2012 [facility] [place] [facility] [address] [id number] [place] [address]- 0127 15 Jun, 2012 [facility] [place] [facility] [address] [id number] [place] [address]- 2583 13 Jun, 2012 [facility] [place] [facility] [address] [id number] [place] [address]- 6156 March, [facility] [place] [facility] [address] [id number] [place] [address]- 5838 Feb, [facility] [place] [facility] [address] [id number] [place] [address]- 6026 28 Jan, 2012 [facility] [place] [facility] [address] [id number] [place] [address]- 7276 27 Jan, 2012 [facility] [place] [facility] [address] [id number] [place] [address] 2546 22 Jan, 2012 [facility] [place] [facility] [address] [id number] [place] [address] 2546 14 Jan, 2012 [facility] [place] [facility] [address] [id number] [place] [address] 2546 14 Jan, 2012 [facility] [place] [facility] [address] [id number] [place] [address]- 7336 14 Jan, 2012 [facility] [place] [facility] [address] [id number] [place] [address]- 7559 28 Dec, 2011 [facility] [place] [facility] [address] [id number] [place] [address]- 8786 27 Dec, 2011 [facility] [place] [facility] [address] [id number] [place] [address]- 5374 23 Dec, 2011 [facility] [place] [facility] [address] [id number] [place] [address]- 1403 21 Dec, 2011 [facility] [place] [facility] [address] [id number] [place] [address]- 8819 20 Dec, 2011 [facility] [place] [facility] [address] [id number] [place] [address] 2546 19 Dec, 2011 [facility] [place] [facility] [address] [id number] [place] [address] 2546 17 Dec, 2011 [facility] [place] [facility] [address] [id number] [place] [address] 2546 16 Dec, 2011 [facility] [place] [facility] [address] [id number] [place] [address]- 2546 31 Nov, 2011 [facility] [place] [facility] [address] [id number] [place] [address] 2546 Oct, [facility] [address] [id number] [address]- 5719 Sep, [facility] [id number] [address]- 2996 Sep, [facility] [id number] [address]- 1125 Sep, [facility] [id number] [address]- 3384 Sep, [facility] [id number] [place] [address]- 5609 Sep, [facility] [id number] [place] [address] 22[address]- 3907 Sep, [facility] [id number] [address]- 5337 Jan, [facility] [id number] [address]- 3430 Apr, IMMUNIZATIONS No Known Immunizations SOCIAL HISTORY Never Assessed REASON FOR VISIT Bowel incontinence--Cherise, Pt reports having no actual bowel incontinence, but for past month has been unable to tell when she has the urge to go. Pt denies constipation or loose stools. Reports having BM every day. Denies pain or rectal bleeding. PLAN OF CARE Activity Details Follow Up 2 - 3 Days if not better Reason:palpitations VITAL SIGNS Height 66 in 2018-05-24 Weight 136.9 lbs 2018-05-24 Temperature 98.1 degrees Fahrenheit 2018-05-24 Heart Rate 112 bpm 2018-05-24 Respiratory Rate 20 2018-05-24 BMI 22.09 kg/m2 2018-05-24 Blood pressure systolic 110 mmHg 2018-05-24 Blood pressure diastolic 68 mmHg 2018-05-24 MEDICATIONS Medication Instructions Dosage Frequency Start Date End Date Duration Status Klonopin 0.5 MG Orally 4 times a day as needed 1 tablet 30 days Active Lamictal 200 mg Orally Once a day 1 tablet 24h 30 days Active Abilify 10 MG Orally Once a day 1 tablet 24h 30 days Active Remeron 45 MG Orally Once a day at bedtime 1 tablet 30 days Active RESULTS Name Result Date Reference Range Xray : KUB (IN HOUSE) 2018-05-24 PROCEDURES Procedure Date Ordered Result Body Site EKG, TRACING (IN-HOUSE) 2018-05-24 N/A X-RAY EXAM ABDOMEN 1 VIEW May 24, 2018 ELECTROCARDIOGRAM, TRACING May 24, 2018 INSTRUCTIONS MEDICATIONS ADMINISTERED No Known Medications MEDICAL [...]
--- OUTSIDE RECORDS SUMMARY | 2018-08-05 20:18 | XMS REPORT ---
Author Author [facility] Address [address] [place] [address] Care Team Providers Care Registered Nurse Hh Case Manager Name Role Phone ARIEL MCCLURE Unavailable PROBLEMS Type Condition ICD9-CM Code [id number] Code Onset Dates Condition Status SNOMED Code Problem Generalized anxiety disorder F41.1 Active 53178570 Problem Acute non intractable tension-type headache G44.209 Active 889007962 Problem Acute right-sided low back pain with right-sided sciatica M54.41 Active 022152083 Problem Post traumatic stress disorder F43.10 Active 05835199 Problem Bipolar disorder, current episode mixed, moderate F31.62 Active 344909483 Problem Endometriosis N80.9 Active 201276027 Problem Borderline personality disorder F60.3 Active 64167567 ALLERGIES No Information ENCOUNTERS Encounter Location Date Diagnosis [place] [id number] [place] [address] 72285- 3284 Oct, [place] [id number] [place] [address] 52126- 2041 Jul, Bipolar disorder, current episode mixed, moderate F31.62 ; Post traumatic stress disorder F43.10 and Borderline personality disorder F60.3 [facility] [id number] [place] [address] 90006- 1019 Jun, Bipolar disorder, current episode mixed, moderate F31.62 [place] [id number] [place] [address] 88791- 3913 May, Palpitations R00.2 [facility] [id number] [place] [address] 51366- 1200 May, Palpitations R00.2 [place] [id number] [place] [address] 57017- 8518 May, Palpitations R00.2 and Frequent bowel movements R19.4 [facility] [id number] [place] [address] 88133- 0981 05 May, 2018 Bipolar disorder, current episode mixed, moderate F31.62 ; Post traumatic stress disorder F43.10 and Borderline personality disorder F60.3 [facility] [address] [place] [address] [id number] 15 Apr, 2018 Dental examination Z01.20 [facility] [id number] [place] [address] 99517 -1467 15 Apr, 2018 [facility] [id number] [place] [address] 37110- 6594 15 Apr, 2018 Dental examination Z01.20 [facility] [id number] [place] [address] 33647 -3441 15 Apr, 2018 Tooth pain K08.89 [facility] [address] 38603- 2263 06 Apr, 2018 Bipolar disorder, current episode mixed, moderate F31.62 ; Post traumatic stress disorder F43.10 and Borderline personality disorder F60.3 [facility] [id number] [place] [address] 88421 -9886 March, Abdominal pain R10.9 ; UTI symptoms R39.9 and Other microscopic hematuria R31.29 [place] [id number] [place] [address] 80422- 6976 March, [facility] [id number] [place] [address] 10207- 0068 March, Bipolar disorder, current episode mixed, moderate F31.62 ; Post traumatic stress disorder F43.10 and Borderline personality disorder F60.3 [place] [id number] [place] [address] 87748- 1327 Feb, Encounter for immunization Z23 [place] [id number] [place] [address] 15012- 1470 Feb, Bipolar disorder, current episode mixed, moderate F31.62 ; Post traumatic stress disorder F43.10 and Borderline personality disorder F60.3 [place] [address] [place] [address] 164066- 7524 Feb, Bipolar disorder, current episode mixed, moderate F31.62 ; Post traumatic stress disorder F43.10 ; Borderline personality disorder F60.3 and Other halfway (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 Z79.899 [place] [address] [place] [place] 164068- 128 Jan, Encounter for immunization Z23 [place] [address] 842932- 417 Jan, [place] [address] [place] 164065- 0544 Jan, Bipolar disorder, current episode mixed, moderate F31.62 [facility] [address] 39716 -4052 Jan, Lumbar back pain M54.5 [place] [address] 24892- 0216 Dec, Low back pain M54.5 [facility] [address] 76984- 5797 13 Dec, 2017 Bipolar disorder, current episode mixed, moderate F31.62 [place] [id number] [place] [address] 55428- 1391 Dec, Generalized anxiety disorder F41.1 and Bipolar disorder, current episode mixed, moderate F31.62 [facility] [id number] [place] [address] 08927 -1934 Nov, Acute non intractable tension-type headache G44.209 [facility] [address] [id number]- 1998 Nov, Bipolar disorder, current episode mixed, moderate F31.62 ; Post traumatic stress disorder F43.10 and Borderline personality disorder F60.3 [place] [address] [place] [address] 70242- 5685 Nov, Bipolar disorder, current episode mixed, moderate F31.62 [facility] [place] [address] 35289 -4247 Nov, Abdominal pain R10.9 ; History of PCOS Z87.42 ; History of endometriosis Z87.42 and Pelvic pain R10.2 [place] [address] 52051- 9644 Nov, [facility] [address] 55114 -8450 Oct, History of PCOS Z87.42 ; History of endometriosis Z87.42 and Pain R52 [place] [address] 95023- 0940 Oct, Bipolar disorder, current episode mixed, moderate F31.62 ; Post traumatic stress disorder F43.10 and Borderline personality disorder F60.3 [place] [id number] [place] [address] 34331- 3946 Oct, Bipolar disorder, current episode mixed, moderate F31.62 [place] [id number] [place] [address] 32755- 6569 Sep, Bipolar disorder, current episode mixed, moderate F31.62 ; Post traumatic stress disorder F43.10 ; Borderline personality disorder F60.3 and Other halfway (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 Z79.899 [place] [id number] [place] [address] 04827- 4062 Sep, Bipolar disorder, current episode mixed, moderate F31.62 [facility] [place] [address] 87600 -9841 Sep, Endometriosis N80.9 and Acute right-sided low back pain with right-sided sciatica M54.41 [place] [address] 18844- 0618 Aug, [facility] [address] [address]- 2376 Aug, Bipolar disorder, current episode mixed, moderate F31.62 ; Post traumatic stress disorder F43.10 and Borderline personality disorder F60.3 [facility] [address] [address]- 0100 11 Aug, 2017 Bipolar disorder, current episode mixed, moderate F31.62 ; Post traumatic stress disorder F43.10 and Borderline personality disorder F60.3 [facility] [address] [address]- 8460 13 Jul, 2017 Bipolar disorder, current episode mixed, moderate F31.62 ; Post traumatic stress disorder F43.10 and Borderline personality disorder F60.3 [facility] [address] [address] -5788 11 Jul, 2017 Pharyngitis, unspecified etiology J02.9 and Streptococcal pharyngitis J02.0 [facility] [address] [place] [address] 92406- 8896 Jun, Bipolar disorder, current episode mixed, moderate F31.62 ; Post traumatic stress disorder F43.10 and Borderline personality disorder F60.3 [facility] [address] [address]- 2863 May, [place] [id number] [place] [address] 43994- 7863 May, [facility] [id number] [place] [address] 02622- 1502 May, Bipolar disorder, current episode mixed, moderate F31.62 and Generalized anxiety disorder F41.1 [place] [id number] [place] [address] 85554- 4414 March, Bipolar disorder, current episode mixed, moderate F31.62 and Generalized anxiety disorder F41.1 [place] [id number] [place] [address] 19936- 9293 March, Pelvic pain R10.2 [facility] [address] [place] [address] 32190- 9264 March, [facility] [id number] [place] [address] 125[address] Feb, Bipolar disorder, current episode mixed, moderate F31.62 and Generalized anxiety disorder F41.1 [facility] [id number] [place] [address] 70570- 8047 Jan, [facility] [id number] [place] [address] 83510- 8433 Jan, Bipolar disorder, current episode mixed, moderate F31.62 [facility] [id number] [place] [address] 34031- 5107 Jan, Bipolar disorder, current episode mixed, moderate F31.62 [facility] [id number] [place] [address] 77984- 6991 Jan, Bilateral low back pain without sciatica M54.5 [facility] [id number] [place] [address] [id number] Jan, Dental caries K02.9 and Dental examination Z01.20 [facility] [id number] [place] [address] [id number] Jan, Encounter for dental examination and cleaning without abnormal findings Z01.20 [facility] [address] [place] [address] 65710- 5386 Jan, Bipolar disorder, current episode mixed, moderate F31.62 and Generalized anxiety disorder F41.1 [facility] [address] [place] [address] 42198- 0009 Dec, [facility] [id number] [place] [address]- 4973 Dec, Bipolar disorder, current episode mixed, moderate F31.62 and Generalized anxiety disorder F41.1 [facility] [id number] [place] [address] 68657- 1184 03 Dec, 2016 Other fatigue R53.83 and Orthostatic hypotension I95.1 [facility] [address] [place] [address] [phone] Nov, Dental examination Z01.20 [facility] [address] [place] [address] 15696 -9912 Nov, Bronchitis J40 [place] [address] 31149- 5503 14 Oct, 2016 Generalized anxiety disorder F41.1 [place] [id number] [place] [address] 25453- 5205 14 Sep, 2016 Bipolar disorder, current episode mixed, moderate F31.62 and Generalized anxiety disorder F41.1 [place] [id number] [place] [address] 72554- 1053 Sep, Bipolar disorder, current episode mixed, moderate F31.62 and Generalized anxiety disorder F41.1 [facility] [address] [place] [address] 85536 -3649 08 Jul, 2016 Upper respiratory tract infection, unspecified type J06.9 [place] [id number] [place] [address] 12784- 6590 Jun, Bipolar disorder, current episode mixed, moderate F31.62 and Generalized anxiety disorder F41.1 [place] [id number] [place] [address] 57409- 0777 Apr, [place] [id number] [place] [address] 13037- 4473 Apr, Encounter for test, result positive Z32.01 [place] [id number] [place] [address] 74689- 2144 March, [place] [id number] [place] [address] 56468- 2169 March, Bipolar disorder, current episode mixed, moderate F31.62 and Generalized anxiety disorder F41.1 [place] [address] [address]- 3215 March, Bipolar disorder, current episode mixed, moderate F31.62 and Generalized anxiety disorder F41.1 [facility] [address] [address]- 3102 March, [facility] [id number] [place] [address] 71884- 8714 March, [facility] [id number] [place] [address] 13758- 5302 Feb, [facility] [id number] [place] [address] 50955- 6237 Feb, [facility] [id number] [place] [address] 44754- 1384 Feb, Bipolar disorder, current episode mixed, moderate F31.62 and Generalized anxiety disorder F41.1 [facility] [address] [place] [address] 75179- 8707 Jan, Abdominal pain R10.9 [facility] [address] [place] [address] 60922- 3220 Jan, [facility] [id number] [place] [address] 27925- 7474 Dec, Dental examination Z01.20 [facility] [address] [place] [address] 03444- 4479 Dec, Dental examination Z01.20 and Dental caries K02.9 [facility] [address] [address]- 1183 15 Dec, 2015 Bipolar disorder, current episode mixed, moderate F31.62 and Generalized anxiety disorder F41.1 [facility] [address] [address]- 5032 Dec, [facility] [address] [place] [address] 28466- 1375 Nov, Bipolar disorder, current episode mixed, moderate F31.62 ; Generalized anxiety disorder F41.1 and Seizure-like activity R56.9 [facility] [id number] [place] [address] 66108- 4531 Oct, [facility] [id number] [place] [address] 45170- 6830 Oct, Bipolar disorder, current episode mixed, moderate F31.62 [facility] [id number] [place] [address] 25422- 8775 Oct, Well woman exam Z01.419 ; Encounter [...] Tobacco use Z72.0 and Hot flashes N95.1 [facility] [id number] [place] [address] 40396- 6518 09 Oct, 2015 Seizure-like activity R56.9 and Irregular periods N92.6 [place] [id number] [place] [address] 77734- 2201 07 Oct, 2015 Bipolar disorder, current episode mixed, moderate F31.62 ; Generalized anxiety disorder F41.1 and Underweight R63.6 [facility] [id number] [place] [address] 74608- 9449 Oct, [facility] [address] 51390- 0724 Oct, Generalized anxiety disorder F41.1 and Unspecified mood [ affective] disorder F39 [facility] [id number] [place] [address] 44104 -3022 Oct, Back pain M54.9 and Anxiety F41.9 [facility] [address] [place] [address] 55961- 3621 Oct, [facility] [id number] [place] [address] 75412 -2389 Sep, Arm pain, left M79.602 [facility] [id number] [place] [address] 69165- 8072 Sep, [facility] [id number] [place] [address] [id number] Sep, Dental examination Z01.20 and Dental caries K02.9 [facility] [id number] [place] [address] 44308- 1513 Sep, Generalized anxiety disorder F41.1 and Unspecified episodic mood disorder F39 [facility] [id number] [place] [address] 59583- 2300 Sep, Bilateral low back pain without sciatica M54.5 and Seizure- like activity R56.9 [facility] [id number] [place] [address] 84659- 9368 Aug, [facility] [id number] [place] [address] 49703- 7637 Aug, [facility] [id number] [place] [address] 31161- 5044 Aug, [facility] [id number] [place] [address] 90075- 4561 Aug, Visual changes H53.9 and Bilateral low back pain without sciatica M54.5 [facility] [id number] [place] [address] 45669- 8527 Jul, [facility] [id number] [place] [address] 11958- 9797 Jun, Bipolar I disorder, most recent episode (or current) mixed, moderate 296.62 ; Generalized anxiety disorder 300.02 and High risk medication use V58.69 [facility] [address] [address] [address]- 8591 Jun, [facility] [id number] [place] [address] 85907- 9741 May, [facility] [id number] [place] [address] 428379- 8518 May, Bipolar I disorder, most recent episode (or current) mixed, moderate 296.62 and Generalized anxiety disorder 300.02 [facility] [id number] [place] [address] [id number] May, Dental examination V72.2 [facility] [id number] [place] [address] 49044- 3404 March, Bipolar I disorder, most recent episode (or current) mixed, moderate 296.62 and Generalized anxiety disorder 300.02 [facility] [id number] [place] [address] 46996- 6216 March, [facility] [id number] [place] [address] 76430- 4244 March, [facility] [id number] [place] [address] 09650- 3151 March, Underweight 783.22 ; Hand pain, right 729.5 and Reflux gastritis 535.40 [facility] [id number] [place] [address] 14451- 7091 Feb, [facility] [id number] [place] [address] 02719- 1390 Feb, [facility] [id number] [place] [address] 80285- 3386 Jan, [facility] [id number] [place] [address] 74681970- 1407 Jan, [facility] [address] [place] [address] [id number]- 2865 16 Jan, 2015 [facility] [id number] [place] [address] 27091- 4073 16 Jan, 2015 [facility] [place] [facility] [address] [id number] [place] [address]- 6724 13 Jan, 2015 [facility] [place] [facility] [address] [id number] [place] [address]- 4989 13 Jan, 2015 [facility] [place] [facility] [address] [facility] [id number] [place] [address]- 4785 05 Jan, 2015 [facility] [place] [facility] [address] [facility] [id number] [place] [address]- 4626 05 Jan, 2015 [facility] [place] [facility] [address] [id number] [place] [address]- 0207 Jan, [facility] [place] [facility] [address] [facility] [id number] [place] [address]- 5204 Jan, [facility] [place] [facility] [address] [facility] [id number] [place] [address]- 1610 Jan, [facility] [place] [facility] [address] [facility] [id number] [place] [address]- 2141 Jan, [facility] [place] [facility] [address] [facility] [id number] [place] [address]- 7133 Dec, [facility] [place] [facility] [address] [facility] [id number] [place] [address]- 0468 Dec, [facility] [place] [facility] [address] [facility] [id number], [place] [address]- 0317 Dec, 2014 [facility] [place] [facility] [address] [facility] [id number], [place] [address]- 8375 Dec, 2014 [facility] [place] [facility] [address] [facility] [id number] [place] [address]- 5056 18 Dec, 2014 [facility] [place] [facility] [address] [facility] [id number], [place] [address]- 1893 17 Dec, 2014 [facility] [place] [facility] [address] [facility] [id number], [place] [address]- 3155 Dec, 2014 [facility] [place] [facility] [address] [id number] [place] [address]- 1725 Dec, 2014 [facility] [place] [facility] [address] [id number] [place] [address]- 2404 Dec, 2014 [facility] [place] [facility] [address] [id number] [place] [address]- 6872 Dec, 2014 [facility] [place] [facility] [address] [id number] [place] [address]- 4945 Dec, 2014 [facility] [place] [facility] [address] [id number] [place] [address]- 1555 Dec, 2014 [facility] [place] [facility] [address] [id number] [place] [address]- 8217 Dec, 2014 [facility] [place] [facility] [address] [facility] [id number] [place] [address]- 1578 Dec, 2014 [facility] [place] [facility] [address] [id number] [place] [address]- 9068 Dec, 2014 [facility] [place] [facility] [address] [id number] [place] [address]- 6911 Dec, 2014 [facility] [place] [facility] [address] [facility] [id number] [place] [address]- 4769 Dec, 2014 [facility] [place] [facility] [address] [id number], [place] [address] Dec, 2014 [facility] [place] [facility] [address] [id number], [place] [address] Dec, 2014 [facility] [place] [facility] [address] [id number] [place] [address] Nov, [facility] [place] [facility] [address] [id number] [place] [address] Nov, [facility] [place] [facility] [address] [facility] [id number] [place] [address] Nov, [facility] [place] [facility] [address] [id number] [place] [address] Nov, [facility] [place] [facility] [address] [id number] [place] [address] Nov, [facility] [place] [facility] [address] [id number] [place] [address] Nov, [facility] [place] [facility] [address] [id number] [place] [id number] Nov, [facility] [place] [facility] [address] [id number] [place] [address] Nov, [facility] [place] [facility] [address] [id number] [place] [address] Nov, [facility] [place] [facility] [address] [id number] [place] [id number] Nov, [facility] [place] [facility] [address] [id number] [place] [address] Nov, [facility] [place] [facility] [address] [id number] [place] [address] Nov, [facility] [place] [facility] [address] [id number] [place] [address] Oct, [facility] [place] [facility] [address] [id number] [place] [address] Oct, [facility] [place] [facility] [address] [id number] [place] [address] Oct, [facility] [place] [facility] [address] [id number] [place] [address] Oct, [facility] [place] [facility] [address] [id number] [place] [address] Oct, [facility] [place] [facility] [address] [id number] [place] [address] Oct, [facility] [place] [facility] [address] [id number] [place] [address] Oct, [facility] [place] [facility] [address] [id number] [place] [id number] [address] Oct, [facility] [place] [facility] [address] [id number] [place] [address] Oct, [facility] [place] [facility] [address] [id number] [place] [address] Oct, [facility] [place] [facility] [address] [id number] [place] [address]307 Oct, [facility] [place] [facility] [address] [id number] [place] [address]- 1269 Oct, [facility] [place] [facility] [address] [id number] [place] [address]- 6567 Sep, [facility] [place] [facility] [address] [id number] [place] [address] 6887 Sep, [facility] [place] [facility] [address] [id number] [place] [address]- 5940 Sep, [facility] [place] [facility] [address] [id number] [place] [address]- 7411 Sep, [facility] [place] [facility] [address] [id number] [place] [address]- 6175 Sep, [facility] [place] [facility] [address] [id number] [place] [address]- 7115 Sep, [facility] [place] [facility] [address] [id number] [place] [address]- 8763 Sep, [facility] [place] [facility] [address] [id number] [place] [address]- 6024 Sep, [facility] [place] [facility] [address] [id number] [place] [address] Aug, [facility] [place] [facility] [address] [id number] [place] [address] Aug, [facility] [place] [facility] [address] [id number] [place] [address]- 1855 Aug, [facility] [place] [facility] [address] [id number] [place] [address]- 6782 Aug, [facility] [place] [facility] [address] [id number] [place] [address]- 7008 Aug, [facility] [place] [facility] [address] [id number] [place] [address]- 2819 Aug, [facility] [place] [facility] [address] [id number] [place] [address]- 2201 Aug, [facility] [place] [facility] [address] [id number] [place] [address]- 0705 Aug, [facility] [place] [facility] [address] [id number] [place] [address]- 4457 Aug, [facility] [place] [facility] [address] [id number] [place] [address]- 0049 Aug, [facility] [place] [facility] [address] [id number], [place] [address]- 2371 Aug, [facility] [place] [facility] [address] [id number] [place] [address]- 4652 Aug, [facility] [place] [facility] [address] [id number], [place] [address]- 8815 Aug, [facility] [place] [facility] [address] [id number], [place] [address] 8607 Jul, [facility] [place] [facility] [address] [id number], [place] [address]- 7629 Jul, [facility] [place] [facility] [address] [id number] [place] [address]- 9360 Jul, [facility] [place] [facility] [address] [id number], [place] [address]- 5072 Jul, [facility] [place] [facility] [address] [id number], [place] [address]- 4291 Jun, [facility] [place] [facility] [address] [id number] [place] [address]- 5868 Jun, [facility] [place] [facility] [address] [id number] [place] [address]- 8391 Jun, [facility] [place] [facility] [address] [id number] [place] [address]- 5130 Jun, [facility] [place] [facility] [address] [id number] [place] [address]- 9330 Jun, [facility] [place] [facility] [address] [id number] [place] [address]- 1297 Jun, [facility] [place] [facility] [address] [id number] [place] [address]- 2002 May, [facility] [place] [facility] [address] [id number] [place] [address]- 5455 May, [facility] [place] [facility] [address] [id number] [place] [address]- 4261 May, [facility] [place] [facility] [address] [id number] [place] [address]- 8433 May, [facility] [place] [facility] [address] [id number] [place] [address]- 8685 Apr, [facility] [place] [facility] [address] [id number] [place] [address]- 1754 Apr, [facility] [place] [facility] [address] [id number] [place] [address]- 1202 March, [facility] [place] [facility] [address] [id number] [place] [address]- 7326 March, [facility] [place] [facility] [address] [id number] [place] [address]- 5727 March, [facility] [place] [facility] [address] [id number] [place] [address]- 9534 March, [facility] [place] [facility] [address] [id number] [place] [address]- 3204 March, [facility] [place] [facility] [address] [id number] [place] [address]- 7451 March, [facility] [place] [facility] [address] [id number] [place] [address]- 6613 Feb, [facility] [place] [facility] [address] [id number] [place] [address]- 2366 Feb, [facility] [place] [facility] [address] [id number] [place] [address]- 2404 Dec, [facility] [place] [facility] [address] [id number] [place] [address]- 9567 Dec, [facility] [place] [facility] [address] [id number] [place] [address]- 7410 Nov, [facility] [place] [facility] [address] [id number] [place] [address]- 3900 Nov, [facility] [place] [facility] [address] [id number] [place] [address]- 9460 Sep, [facility] [place] [facility] [address] [id number] [place] [address]- 5509 Sep, [facility] [place] [facility] [address] [id number], [place] [address]- 4549 Sep, [facility] [place] [facility] [address] [id number], [place] [address]- 1155 Sep, [facility] [place] [facility] [address] [id number], [place] [address]- 1450 Sep, [facility] [place] [facility] [address] [id number] [place] [address]- 7695 Sep, [facility] [place] [facility] [address] [id number] [place] [address]- 4966 Sep, [facility] [place] [facility] [address] [id number], [place] [address]- 1506 Aug, [facility] [place] [facility] [address] [id number], [place] [address]- 1415 Aug, [facility] [place] [facility] [address] [id number] [place] [address]- 3567 Aug, [facility] [place] [facility] [address] [id number] [place] [address]- 6965 Aug, [facility] [place] [facility] [address] [id number] [place] [address]- 8862 Aug, [facility] [place] [facility] [address] [id number] [place] [address]- 1021 Aug, [facility] [place] [facility] [address] [id number] [place] [address]- 1155 Jul, [facility] [place] [facility] [address] [id number] [place] [address]- 8158 Jul, [facility] [place] [facility] [address] [id number] [place] [address]- 6457 16 Jul, 2013 [facility] [place] [facility] [address] [id number] [place] [address]- 1789 Jul, [facility] [place] [facility] [address] [id number] [place] [address]- 3118 Jun, [facility] [place] [facility] [address] [id number] [place] [address]- 3423 Jun, [facility] [place] [facility] [address] [id number] [place] [address]- 4137 Jun, [facility] [place] [facility] [address] [id number] [place] [address]- 8788 Jun, [facility] [place] [facility] [address] [id number] [place] [address]- 7434 Jun, [facility] [place] [facility] [address] [id number] [place] [address]- 1527 Jun, [facility] [place] [facility] [address] [id number] [place] [address]- 7894 Jun, [facility] [place] [facility] [address] [id number] [place] [address]- 9370 23 May, 2012 [facility] [place] [facility] [address] [id number] [place] [address]- 3425 23 May, 2012 [facility] [place] [facility] [address] [id number] [place] [address]- 5796 16 May, 2012 [facility] [place] [facility] [address] [id number] [place] [address]- 2612 15 May, 2012 [facility] [place] [facility] [address] [id number] [place] [address]- 1761 13 May, 2013 [facility] [place] [facility] [address] [id number] [place] [address]- 8228 05 May, 2013 [facility] [place] [facility] [address] [id number] [place] [address]- 5132 03 May, 2013 [facility] [place] [facility] [address] [id number] [place] [address]- 3877 28 Apr, 2013 [facility] [place] [facility] [address] [id number] [place] [address]- 4421 27 Apr, 2013 [facility] [place] [facility] [address] [id number] [place] [address]- 9466 27 Apr, 2013 [facility] [place] [facility] [address] [id number] [place] [address]- 4781 26 Apr, 2013 [facility] [place] [facility] [address] [id number] [place] [address]- 0634 20 Apr, 2013 [facility] [place] [facility] [address] [id number] [place] [address]- 9400 18 Apr, 2013 [facility] [place] [facility] [address] [id number] [place] [address]- 8914 18 Apr, 2013 [facility] [place] [facility] [address] [id number] [place] [address]- 7607 18 Apr, 2013 [facility] [place] [facility] [address] [id number] [place] [address]- 3156 17 Apr, 2013 [facility] [place] [facility] [address] [id number] [place] [address]- 1441 14 Apr, 2013 [facility] [place] [facility] [address] [id number] [place] [address]- 4743 14 Apr, 2013 [facility] [place] [facility] [address] [id number] [place] [address]- 0266 11 Apr, 2013 [facility] [place] [facility] [address] [id number] [place] [address]- 8772 10 Apr, 2013 [facility] [place] [facility] [address] [id number] [place] [address]- 9145 09 Apr, 2013 [facility] [place] [facility] [address] [id number] [place] [address]- 4991 07 Apr, 2013 [facility] [place] [facility] [address] [id number] [place] [address]- 7481 06 Apr, 2013 [facility] [place] [facility] [address] [id number] [place] [address]- 0935 06 Apr, 2013 [facility] [place] [facility] [address] [id number] [place] [address]- 0069 05 Apr, 2013 [facility] [place] [facility] [address] [id number] [place] [address]- 6894 Apr, [facility] [place] [facility] [address] [id number] [place] [address]- 4173 March, [facility] [place] [facility] [address] [id number], [place] [address]- 1886 March, [facility] [place] [facility] [address] [id number] [place] [address]- 3584 March, [facility] [place] [facility] [address] [id number] [place] [address]- 0852 March, [facility] [place] [facility] [address] [id number] [place] [address]- 7644 March, [facility] [place] [facility] [address] [id number] [place] [address]- 9797 11 Mar, 2013 [facility] [address] [id number] [place] [address]- 5761 March, [facility] [address] [id number] [place] [address]- 8806 Feb, [facility] [address] [id number] [place] [address]- 5878 Feb, [facility] [address] [id number] [place] [address]- 1543 27 Jan, 2013 [facility] [address] [id number] [place] [address]- 2486 18 Jan, 2013 [facility] [address] [id number] [place] [address]- 6999 15 Jan, 2013 [facility] [address] [id number] [place] [address]- 9003 14 Jan, 2013 [facility] [address] [id number] [place] [address]- 1348 13 Jan, 2013 [facility] [address] [id number] [place] [address]- 6348 12 Jan, 2013 [facility] [address] [id number] [place] [address]- 8317 11 Jan, 2013 [facility] [address] [id number] [place] [address]- 5959 09 Jan, 2013 [facility] [address] [id number] [place] [address]- 7185 08 Jan, 2013 [facility] [address] [id number] [place] [address]- 2979 07 Jan, 2013 [facility] [place] [facility] [address] [id number] [place] [address]- 3260 06 Jan, 2013 [facility] [address] [id number] [place] [address]- 4550 17 Nov, 2012 [facility] [place] [facility] [address] [id number] [place] [address]- 2432 Oct, [facility] [place] [facility] [address] [id number] [place] [address]- 7049 Oct, [facility] [place] [facility] [address] [id number] [place] [address]- 5018 Oct, [facility] [place] [facility] [address] [id number] [place] [address]- 6594 Oct, [facility] [place] [facility] [address] [id number] [place] [address]- 7893 Sep, [facility] [place] [facility] [address] [id number] [place] [address]- 3095 Sep, [facility] [place] [facility] [address] [id number] [place] [address]- 0122 Sep, [facility] [place] [facility] [address] [id number] [place] [address]- 1865 Sep, [facility] [place] [facility] [address] [id number] [place] [address]- 0374 Sep, [facility] [place] [facility] [address] [id number] [place] [address]- 0381 Sep, [facility] [place] [facility] [address] [id number] [place] [address]- 0025 Sep, [facility] [place] [facility] [address] [id number] [place] [address]- 9050 Sep, [facility] [place] [facility] [address] [id number] [place] [address]- 2162 Sep, [facility] [place] [facility] [address] [id number] [place] [address]- 0517 Sep, [facility] [place] [facility] [address] [id number] [place] [address]- 3916 Sep, [facility] [place] [facility] [address] [id number] [place] [address]- 4166 Aug, [facility] [place] [facility] [address] [id number] [place] [address]- 1666 Aug, [facility] [place] [facility] [address] [id number] [place] [address]- 8044 Aug, [facility] [place] [facility] [address] [id number] [place] [address]- 5682 28 Jul, 2012 [facility] [place] [facility] [address] [id number] [place] [address]- 2168 25 Jul, 2012 [facility] [place] [facility] [address] [id number] [place] [address]- 4860 19 Jul, 2012 [facility] [place] [facility] [address] [id number] [place] [address]- 1072 17 Jul, 2012 [facility] [place] [facility] [address] [id number] [place] [address]- 0175 20 Jun, 2012 [facility] [place] [facility] [address] [id number] [place] [address]- 9805 16 Jun, 2012 [facility] [place] [facility] [address] [id number] [place] [address]- 0510 15 Jun, 2012 [facility] [place] [facility] [address] [id number] [place] [address]- 8114 Jun, [facility] [place] [facility] [address] [id number] [place] [address]- 6276 Jun, [facility] [place] [facility] [address] [id number] [place] [address]- 2251 March, [facility] [place] [facility] [address] [id number] [place] [address]- 1315 Feb, [facility] [place] [facility] [address] [id number] [place]43 Jan, [facility] [place] [facility] [address] [id number] [place] [address]- 2925 Jan, [facility] [place] [facility] [address] [id number] [place] [address]- 3701 22 Jan, 2012 [facility] [place] [facility] [address] [id number] [place] [address] 2546 14 Jan, 2012 [facility] [place] [facility] [address] [id number] [place] [address] 2546 14 Jan, 2012 [facility] [place] [facility] [address] [id number] [place] [address]- 6366 14 Jan, 2012 [facility] [place] [facility] [address] [id number] [place] [address] 2540 28 Dec, 2011 [facility] [place] [facility] [address] [id number] [place] [address]- 0396 27 Dec, 2011 [facility] [place] [facility] [address] [id number] [place] [address]- 2548 23 Dec, 2011 [facility] [place] [facility] [address] [id number] [place] [address] 2547 21 Dec, 2011 [facility] [place] [facility] [address] [id number] [place] [address]- 3103 20 Dec, 2011 [facility] [place] [facility] [address] [id number] [place] [address]- 5521 19 Dec, 2011 [facility] [place] [facility] [address] [id number] [place] [address]- 0659 17 Dec, 2011 [facility] [place] [facility] [address] [id number] [place] [address]- 2546 16 Dec, 2011 [facility] [place] [facility] [address] [id number] [place] [address] 2542 31 Nov, 2011 [facility] [place] [facility] [address] [id number] [place] [address] 2546 13 Oct, 2011 [facility] [place] [facility] [address] [id number] [place] [address]- 2548 18 Sep, 2011 [facility] [place] [facility] [address] [id number], [place] [address] Sep, [facility] [address] [facility] [id number] [place] [address] Sep, [facility] [address] [id number], [place] [address]- 0086 Sep, [facility] [address] [facility] [id number], [place] [address]- 3407 Sep, [facility] [address] [facility] [id number], [place] [address]- 6093 Sep, [facility] [address] [facility] [id number], [place] [address]- 5117 Jan, [facility] [address] [facility] [id number] 4[address] Apr, IMMUNIZATIONS No Known Immunizations SOCIAL HISTORY Never Assessed REASON FOR VISIT Lab (walk-in) PLAN OF CARE VITAL SIGNS MEDICATIONS Unknown Medications RESULTS No Results PROCEDURES Procedure Date Ordered Result Body Site COMPREHEN METABOLIC PANEL May 25, 2018 ASSAY THYROID STIM HORMONE May 25, 2018 INSTRUCTIONS MEDICATIONS ADMINISTERED No Known Medications MEDICAL (GENERAL) HISTORY Type Description Date Medical History bipolar disorder Medical History PTSD Medical History endometriosis Medical History PCOS (Polycystic Ovary Syndrome) Medical History Seizures Medical History Endometriosis Medical History History of Self Harm Surgical History laparoscopy for endometriosis 2008 Surgical History tonsillectomy Surgical History partial hysterectomy 12/2016 Surgical History Left ovary removed 12/2016 Hospitalization History [facility] Admission x4 2009 most recent admission Hospitalization History [facility]; overdose 2010 Hospitalization History child 11/29/2016
--- OUTSIDE RECORDS SUMMARY | 2018-08-05 20:18 | XMS REPORT ---
Author Author [facility] Address [address] [place] [address] Care Team Providers Care Party Coordinator Name Role Phone ARIEL MCCLURE Unavailable PROBLEMS Type Condition ICD9-CM Code [id number] Code Onset Dates Condition Status SNOMED Code Problem Generalized anxiety disorder F41.1 Active 77291864 Problem Acute non intractable tension-type headache G44.209 Active 747132819 Problem Acute right-sided low back pain with right-sided sciatica M54.41 Active 346016287 Problem Post traumatic stress disorder F43.10 Active 25516108 Problem Bipolar disorder, current episode mixed, moderate F31.62 Active 798596481 Problem Endometriosis N80.9 Active 252308950 Problem Borderline personality disorder F60.3 Active 68777660 ALLERGIES No Information ENCOUNTERS Encounter Location Date Diagnosis [place] [id number] [id number] [place] [address] 46660- 6415 Oct, [place] [id number] [place] [address] 69497- 2945 Jul, Bipolar disorder, current episode mixed, moderate F31.62 ; Post traumatic stress disorder F43.10 and Borderline personality disorder F60.3 [facility] [id number] [place] [address] 74465- 0294 Jun, Bipolar disorder, current episode mixed, moderate F31.62 [place] [id number] [place] [address] 31698- 4871 May, Palpitations R00.2 [facility] [id number] [place] [address] 27086- 0512 May, Palpitations R00.2 [place] [id number] [place] [address] 06534- 9530 May, Palpitations R00.2 and Frequent bowel movements R19.4 [facility] [address] [place] [address] 14619- 8393 05 May, 2018 Bipolar disorder, current episode mixed, moderate F31.62 ; Post traumatic stress disorder F43.10 and Borderline personality disorder F60.3 [facility] [id number] [place] [address] [phone] 15 Apr, 2018 Dental examination Z01.20 [facility] [id number] [place] [address] 51856 -1336 15 Apr, 2018 [facility] [id number] [place] [address] 46842- 8966 15 Apr, 2018 Dental examination Z01.20 [facility] [id number] [place] [address] 86251 -0319 15 Apr, 2018 Tooth pain K08.89 [facility] [address] 69800- 7227 06 Apr, 2018 Bipolar disorder, current episode mixed, moderate F31.62 ; Post traumatic stress disorder F43.10 and Borderline personality disorder F60.3 [facility] [id number] [place] [address] 49945 -7560 March, Abdominal pain R10.9 ; UTI symptoms R39.9 and Other microscopic hematuria R31.29 [place] [id number] [place] [address] 17431- 3312 March, [facility] [id number] [place] [address] 81818- 8654 March, Bipolar disorder, current episode mixed, moderate F31.62 ; Post traumatic stress disorder F43.10 and Borderline personality disorder F60.3 [place] [id number] [place] [address] 30236- 6429 Feb, Encounter for immunization Z23 [place] [id number] [place] [address] 14159- 1703 Feb, Bipolar disorder, current episode mixed, moderate F31.62 ; Post traumatic stress disorder F43.10 and Borderline personality disorder F60.3 [place] [address] [place] 231005- 8075 Feb, Bipolar disorder, current episode mixed, moderate F31.62 ; Post traumatic stress disorder F43.10 ; Borderline personality disorder F60.3 and Other correction (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 Z79.899 [place] [address] [place] 231005- 005 Jan, Encounter for immunization Z23 [place] [address] 812099- 265 Jan, [place] [address] [place] 231004- 3314 Jan, Bipolar disorder, current episode mixed, moderate F31.62 [facility] [address] 57745 -6841 Jan, Lumbar back pain M54.5 [place] [address] 92198- 7866 Dec, Low back pain M54.5 [facility] [address] 03132- 2027 13 Dec, 2017 Bipolar disorder, current episode mixed, moderate F31.62 [place] [id number] [place] [address] 17246- 9815 Dec, Generalized anxiety disorder F41.1 and Bipolar disorder, current episode mixed, moderate F31.[address] [facility] [id number] [place] [address] 73944 -2765 Nov, Acute non intractable tension-type headache G44.209 [facility] [address] [place] [id number]- 7225 Nov, Bipolar disorder, current episode mixed, moderate F31.62 ; Post traumatic stress disorder F43.10 and Borderline personality disorder F60.3 [place] [address] [place] [address] 77239- 9002 Nov, Bipolar disorder, current episode mixed, moderate F31.62 [facility] [place] [address] 42115 -3446 Nov, Abdominal pain R10.9 ; History of PCOS Z87.42 ; History of endometriosis Z87.42 and Pelvic pain R10.2 [place] [address] 76322- 5989 Nov, [facility] [address] 10671 -3330 Oct, History of PCOS Z87.42 ; History of endometriosis Z87.42 and Pain R52 [place] [address] 32324- 0758 Oct, Bipolar disorder, current episode mixed, moderate F31.62 ; Post traumatic stress disorder F43.10 and Borderline personality disorder F60.3 [place] [id number] [place] [address] 56716- 5902 Oct, Bipolar disorder, current episode mixed, moderate F31.62 [place] [id number] [place] [address] 65665- 0719 Sep, Bipolar disorder, current episode mixed, moderate F31.62 ; Post traumatic stress disorder F43.10 ; Borderline personality disorder F60.3 and Other correction (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 Z79.899 [place] [id number] [place] [address] 26157- 7354 Sep, Bipolar disorder, current episode mixed, moderate F31.62 [facility] [place] [address] 86141 -0472 Sep, Endometriosis N80.9 and Acute right-sided low back pain with right-sided sciatica M54.41 [place] [address] 09963- 1372 Aug, [facility] [address] [address]- 6401 Aug, Bipolar disorder, current episode mixed, moderate F31.62 ; Post traumatic stress disorder F43.10 and Borderline personality disorder F60.3 [facility] [address] [address]- 3049 11 Aug, 2017 Bipolar disorder, current episode mixed, moderate F31.62 ; Post traumatic stress disorder F43.10 and Borderline personality disorder F60.3 [facility] [address] [address]- 2690 13 Jul, 2017 Bipolar disorder, current episode mixed, moderate F31.62 ; Post traumatic stress disorder F43.10 and Borderline personality disorder F60.3 [facility] [address] [address] 11 Jul, 2017 Pharyngitis, unspecified etiology J02.9 and Streptococcal pharyngitis J02.0 [facility] [address] [place] [address] 37917- 9664 Jun, Bipolar disorder, current episode mixed, moderate F31.62 ; Post traumatic stress disorder F43.10 and Borderline personality disorder F60.3 [facility] [address] [address]- 1733 May, [place] [id number] [place] [address] 76144- 8604 May, [facility] [id number] [place] [address] 51724- 8659 May, Bipolar disorder, current episode mixed, moderate F31.62 and Generalized anxiety disorder F41.1 [place] [id number] [place] [address] 08506- 2999 March, Bipolar disorder, current episode mixed, moderate F31.62 and Generalized anxiety disorder F41.1 [place] [address] [place] [address] 69778- 8650 March, Pelvic pain R10.2 [facility] [address] [place] [address] 50851- 8583 March, [facility] [id number] [place] [address] 4638 Feb, Bipolar disorder, current episode mixed, moderate F31.62 and Generalized anxiety disorder F41.1 [facility] [address] [id number] [place] [address] 55652- 5702 Jan, [facility] [id number] [place] [address] 64820- 4721 Jan, Bipolar disorder, current episode mixed, moderate F31.62 [facility] [id number] [place] [address] 36475- 1919 Jan, Bipolar disorder, current episode mixed, moderate F31.62 [facility] [id number] [place] [address] 21702- 7953 Jan, Bilateral low back pain without sciatica M54.5 [facility] [address] [place] [address] [id number] [place] [address] [id number] Jan, Dental caries K02.9 and Dental examination Z01.20 [facility] [address] [id number] [place] [address] [id number] Jan, Encounter for dental examination and cleaning without abnormal findings Z01.20 [facility] [address] [place] [address] 52625- 7956 Jan, Bipolar disorder, current episode mixed, moderate F31.62 and Generalized anxiety disorder F41.1 [facility] [address] [place] [address] 90121- 5197 Dec, [facility] [id number] [place] [id number]- [address]563 Dec, Bipolar disorder, current episode mixed, moderate F31.62 and Generalized anxiety disorder F41.1 [facility] [id number] [place] [address] 85598- 4740 03 Dec, 2016 Other fatigue R53.83 and Orthostatic hypotension I95.1 [facility] [address] [place] [address] [id number] Nov, Dental examination Z01.20 [facility] [address] [place] [address] 47335 -5961 Nov, Bronchitis J40 [place] [address] 19385- 6564 14 Oct, 2016 Generalized anxiety disorder F41.1 [place] [id number] [place] [address] 76784- 7210 14 Sep, 2016 Bipolar disorder, current episode mixed, moderate F31.62 and Generalized anxiety disorder F41.1 [place] [id number] [place] [address] 38344- 7729 Sep, Bipolar disorder, current episode mixed, moderate F31.62 and Generalized anxiety disorder F41.1 [facility] [address] [place] [address] 40975 -5314 08 Jul, 2016 Upper respiratory tract infection, unspecified type J06.9 [place] [id number] [place] [address] 50600- 7310 Jun, Bipolar disorder, current episode mixed, moderate F31.62 and Generalized anxiety disorder F41.1 [place] [id number] [place] [address] 69884- 4081 Apr, [place] [id number] [place] [address] 03492- 8844 Apr, Encounter for test, result positive Z32.01 [place] [id number] [place] [address] 38023- 6566 March, [place] [id number] [place] [address] 74172- 9429 March, Bipolar disorder, current episode mixed, moderate F31.62 and Generalized anxiety disorder F41.1 [place] [address], [place] [address]- 2743 March, Bipolar disorder, current episode mixed, moderate F31.62 and Generalized anxiety disorder F41.1 [facility] [address] [address]- 5939 March, [facility] [id number] [place] [address] 37535- 4846 March, [facility] [id number] [place] [address] 56065- 9035 Feb, [facility] [id number] [place] [address] 04357- 8534 Feb, [facility] [id number] [place] [address] 70305- 9442 Feb, Bipolar disorder, current episode mixed, moderate F31.62 and Generalized anxiety disorder F41.1 [facility] [address] [place] [address] 04723- 6782 Jan, Abdominal pain R10.9 [facility] [address] [place] [address] 91815- 0597 Jan, [facility] [id number] [place] [address] 69105- 6472 Dec, Dental examination Z01.20 [facility] [address] [place] [address] 81912- 9606 Dec, Dental examination Z01.20 and Dental caries K02.9 [facility] [address], [place] [address]- 5387 15 Dec, 2015 Bipolar disorder, current episode mixed, moderate F31.62 and Generalized anxiety disorder F41.1 [facility] [address], [place] [address]- 5995 Dec, [facility] [address] [place] [address] 70637- 6978 Nov, Bipolar disorder, current episode mixed, moderate F31.62 ; Generalized anxiety disorder F41.1 and Seizure-like activity R56.9 [facility] [id number] [place] [address] 69660- 7710 Oct, [facility] [id number] [place] [address] 33385- 1608 Oct, Bipolar disorder, current episode mixed, moderate F31.62 [facility] [id number] [place] [address] 91875- 0140 Oct, Well woman exam Z01.419 ; Encounter [...] Tobacco use Z72.0 and Hot flashes N95.1 [facility] [id number] [place] [address] 67682- 6873 09 Oct, 2015 Seizure-like activity R56.9 and Irregular periods N92.6 [place] [id number] [place] [address] 16636- 4950 07 Oct, 2015 Bipolar disorder, current episode mixed, moderate F31.62 ; Generalized anxiety disorder F41.1 and Underweight R63.6 [facility] [id number] [place] [address] 20513- 3755 Oct, [facility] [address] 47067- 6115 Oct, Generalized anxiety disorder F41.1 and Unspecified mood [ affective] disorder F39 [facility] [id number] [place] [address] 21257 -0796 Oct, Back pain M54.9 and Anxiety F41.9 [facility] [address] [place] [address] 19204- 7750 Oct, [facility] [id number] [place] [address] 02041 -3906 Sep, Arm pain, left M79.602 [facility] [id number] [place] [address] 15320- 3559 Sep, [facility] [id number] [place] [address] [id number] Sep, Dental examination Z01.20 and Dental caries K02.9 [facility] [id number] [place] [address] 34153- 1113 Sep, Generalized anxiety disorder F41.1 and Unspecified episodic mood disorder F39 [facility] [id number] [place] [address] 14419- 5163 Sep, Bilateral low back pain without sciatica M54.5 and Seizure- like activity R56.9 [facility] [id number] [place] [address] 42385- 6172 Aug, [facility] [id number] [place] [address] 75992- 9861 Aug, [facility] [id number] [place] [address] 73889- 4122 Aug, [facility] [id number] [place] [address] 97699- 7390 Aug, Visual changes H53.9 and Bilateral low back pain without sciatica M54.5 [facility] [id number] [place] [address] 99090- 7267 Jul, [facility] [id number] [place] [address] 12228- 8952 Jun, Bipolar I disorder, most recent episode (or current) mixed, moderate 296.62 ; Generalized anxiety disorder 300.02 and High risk medication use V58.69 [facility] [address] [place] [address] [address]- 6947 Jun, [facility] [id number] [place] [address] 31297- 9591 May, [facility] [id number] [place] [address] 222938- 3222 May, Bipolar I disorder, most recent episode (or current) mixed, moderate 296.62 and Generalized anxiety disorder 300.02 [facility] [address] [id number] [place] [address] [id number] May, Dental examination V72.2 [facility] [id number] [place] [address] 52364- 8307 March, Bipolar I disorder, most recent episode (or current) mixed, moderate 296.62 and Generalized anxiety disorder 300.02 [facility] [id number] [place] [address] 73382- 8295 March, [facility] [id number] [place] [address] 90497- 2305 March, [facility] [id number] [place] [address] 47072- 7462 March, Underweight 783.22 ; Hand pain, right 729.5 and Reflux gastritis 535.40 [facility] [id number] [place] [address] 23830- 2108 Feb, [facility] [id number] [place] [address] 50422- 9595 Feb, [facility] [id number] [place] [address] 26771- 5666 Jan, [facility] [id number] [place] [address] [id number]- 6930 Jan, [facility] [id number] [place] [address] [id number]- 5586 16 Jan, 2015 [facility] [id number] [place] [address] 58813- 8610 16 Jan, 2015 [facility] [place] [facility] [address] [id number] [place] [address]- 3219 13 Jan, 2015 [facility] [place] [facility] [address] [id number] [place] [address]- 9208 13 Jan, 2015 [facility] [place] [facility] [address] [facility] [id number] [place] [address]- 5363 05 Jan, 2015 [facility] [place] [facility] [address] [facility] [id number] [place] [address]- 2217 05 Jan, 2015 [facility] [place] [facility] [address] [id number] [place] [address]- 3341 Jan, [facility] [place] [facility] [address] [facility] [id number] [place] [address]- 7550 Jan, [facility] [place] [facility] [address] [facility] [id number] [place] [address]- 7196 Jan, [facility] [place] [facility] [address] [facility] [id number] [place] [address]- 1290 Jan, [facility] [place] [facility] [address] [facility] [id number] [place] [address]- 8974 Dec, [facility] [place] [facility] [address] [facility] [id number] [place] [address]- 2309 Dec, [facility] [place] [facility] [address] [facility] [id number], [place] [address]- 7567 Dec, 2014 [facility] [place] [facility] [address] [facility] [id number], [place] [address]- 7676 Dec, 2014 [facility] [place] [facility] [address] [facility] [id number] [place] [address]- 7454 18 Dec, 2014 [facility] [place] [facility] [address] [facility] [id number], [place] [address]- 6320 17 Dec, 2014 [facility] [place] [facility] [address] [facility] [id number], [place] [address]- 1942 Dec, 2014 [facility] [place] [facility] [address] [id number] [place] [address]- 6423 Dec, 2014 [facility] [place] [facility] [address] [id number] [place] [address]- 5088 Dec, 2014 [facility] [place] [facility] [address] [id number] [place] [address]- 3083 Dec, 2014 [facility] [place] [facility] [address] [id number] [place] [address]- 2018 Dec, 2014 [facility] [place] [facility] [address] [id number] [place] [address]- 0417 Dec, 2014 [facility] [place] [facility] [address] [id number] [place] [address]- 4805 Dec, 2014 [facility] [place] [facility] [address] [facility] [id number] [place] [address]- 9475 Dec, 2014 [facility] [place] [facility] [address] [id number] [place] [address]- 0668 Dec, 2014 [facility] [place] [facility] [address] [id number] [place] [address]- 1143 Dec, 2014 [facility] [place] [facility] [address] [facility] [id number] [place] [address]- 9953 Dec, 2014 [facility] [place] [facility] [address] [id number], [place] [address]- 6888 Dec, 2014 [facility] [place] [facility] [address] [id number], [place] [address]- 0016 Dec, 2014 [facility] [place] [facility] [address] [id number] [place] [address]- 2008 Nov, [facility] [place] [facility] [address] [id number] [place] [address]- 5528 Nov, [facility] [place] [facility] [address] [facility] [id number] [place] [address]- 5794 Nov, [facility] [place] [facility] [address] [id number] [place] [address] 2546 Nov, [facility] [place] [facility] [address] [id number] [place] [address]- 6576 Nov, [facility] [place] [facility] [address] [id number] [place] [address]- 2546 Nov, [facility] [place] [facility] [address] [id number] [place] [id number] Nov, [facility] [place] [facility] [address] [id number] [place] [address] Nov, [facility] [place] [facility] [address] [id number] [place] [address] Nov, [facility] [place] [facility] [address] [id number] [place] [id number] Nov, [facility] [place] [facility] [address] [id number] [place] [address] Nov, [facility] [place] [facility] [address] [id number] [place] [address] Nov, [facility] [place] [facility] [address] [id number] [place] [address] Oct, [facility] [place] [facility] [address] [id number] [place] [address] Oct, [facility] [place] [facility] [address] [id number] [place] [address] Oct, [facility] [place] [facility] [address] [id number] [place] [address] Oct, [facility] [place] [facility] [address] [id number] [place] [address] Oct, [facility] [place] [facility] [address] [id number] [place] [address] Oct, [facility] [place] [facility] [address] [id number] [place] [address] Oct, [facility] [place] [facility] [address] [id number] [place] [address] Oct, [facility] [place] [facility] [address] [id number] [place] [address] Oct, [facility] [place] [facility] [address] [id number] [place] [address] Oct, [facility] [place] [facility] [address] [id number] [place] [address] Oct, [facility] [place] [facility] [address] [id number] [place] [address] Oct, [facility] [place] [facility] [address] [id number] [place] [address] Sep, [facility] [place] [facility] [address] [id number] [place] [address] Sep, [facility] [place] [facility] [address] [id number] [place] [address] Sep, [facility] [place] [facility] [address] [id number] [place] [address] Sep, [facility] [place] [facility] [address] [id number] [place] [address] Sep, [facility] [place] [facility] [address] [id number] [place] [address] 3344 Sep, [facility] [place] [facility] [address] [id number] [place] [address]- 1516 Sep, [facility] [place] [facility] [address] [id number] [place] [address]- 4479 Sep, [facility] [place] [facility] [address] [id number] [place] [address] Aug, [facility] [place] [facility] [address] [id number] [place] [address] Aug, [facility] [place] [facility] [address] [id number] [place] [address]- 2088 Aug, [facility] [place] [facility] [address] [id number] [place] [address]- 6598 Aug, [facility] [place] [facility] [address] [id number] [place] [address]- 6119 Aug, [facility] [place] [facility] [address] [id number] [place] [address]- 0057 Aug, [facility] [place] [facility] [address] [id number] [place] [address]- 1793 Aug, [facility] [place] [facility] [address] [id number] [place] [address]- 1801 Aug, [facility] [place] [facility] [address] [id number] [place] [address]- 5173 Aug, [facility] [place] [facility] [address] [id number] [place] [address]- 3740 Aug, [facility] [place] [facility] [address] [id number], [place] [address] Aug, [facility] [place] [facility] [address] [id number] [place] [address]- 5029 Aug, [facility] [place] [facility] [address] [id number], [place] [address]- 4779 Aug, [facility] [place] [facility] [address] [id number], [place] [address] Jul, [facility] [place] [facility] [address] [id number], [place] [address] Jul, [facility] [place] [facility] [address] [id number] [place] [address]- 7539 Jul, [facility] [place] [facility] [address] [id number], [place] [address] Jul, [facility] [place] [facility] [address] [id number], [place] [address]- 74[address] Jun, [facility] [place] [facility] [address] [id number] [place] [address]- 9617 Jun, [facility] [place] [facility] [address] [id number] [place] [address]- 3388 Jun, [facility] [place] [facility] [address] [id number] [place] [address]- 1267 Jun, [facility] [place] [facility] [address] [id number] [place] [address]- 8552 Jun, [facility] [place] [facility] [address] [id number] [place] [address]- 3959 Jun, [facility] [place] [facility] [address] [id number] [place] [address]- 9888 May, [facility] [place] [facility] [address] [id number] [place] [address]- 4245 May, [facility] [place] [facility] [address] [id number] [place] [address]- 9445 May, [facility] [place] [facility] [address] [id number] [place] [address]- 5183 May, [facility] [place] [facility] [address] [id number] [place] [address]- 9468 Apr, [facility] [place] [facility] [address] [id number] [place] [address]- 4335 Apr, [facility] [place] [facility] [address] [id number] [place] [address]- 0251 March, [facility] [place] [facility] [address] [id number] [place] [address]- 9283 March, [facility] [place] [facility] [address] [id number] [place] [address]- 8163 March, [facility] [place] [facility] [address] [id number] [place] [address]- 8669 March, [facility] [place] [facility] [address] [id number] [place] [address]- 8895 March, [facility] [place] [facility] [address] [id number] [place] [address]- 0571 March, [facility] [place] [facility] [address] [id number] [place] [address]- 5182 Feb, [facility] [place] [facility] [address] [id number] [place] [address]- 0924 Feb, [facility] [place] [facility] [address] [id number] [place] [address]- 6008 Dec, [facility] [place] [facility] [address] [id number] [place] [address]- 5233 Dec, [facility] [place] [facility] [address] [id number] [place] [address]- 4922 Nov, [facility] [place] [facility] [address] [id number] [place] [address]- 8578 Nov, [facility] [place] [facility] [address] [id number] [place] [address]- 7660 Sep, [facility] [place] [facility] [address] [id number] [place] [address]- 6272 Sep, [facility] [place] [facility] [address] [id number], [place] [address]- 0651 Sep, [facility] [place] [facility] [address] [id number], [place] [address]- 6248 Sep, [facility] [place] [facility] [address] [id number], [place] [address]- 8385 Sep, [facility] [place] [facility] [address] [id number] [place] [address]- 5010 Sep, [facility] [place] [facility] [address] [id number] [place] [address]- 1654 Sep, [facility] [place] [facility] [address] [id number], [place] [address]- 1255 Aug, [facility] [place] [facility] [address] [id number], [place] [address]- 2962 Aug, [facility] [place] [facility] [address] [id number] [place] [address]- 7318 Aug, [facility] [place] [facility] [address] [id number] [place] [address]- 3073 Aug, [facility] [place] [facility] [address] [id number] [place] [address]- 1731 Aug, [facility] [place] [facility] [address] [id number] [place] [address]- 0066 Aug, [facility] [place] [facility] [address] [id number] [place] [address]- 2769 Jul, [facility] [place] [facility] [address] [id number] [place] [address]- 9970 Jul, [facility] [place] [facility] [address] [id number] [place] [address]- 2412 16 Jul, 2013 [facility] [place] [facility] [address] [id number] [place] [address]- 2735 Jul, [facility] [place] [facility] [address] [id number] [place] [address]- 1209 Jun, [facility] [place] [facility] [address] [id number] [place] [address]- 5223 Jun, [facility] [place] [facility] [address] [id number] [place] [address]- 4359 Jun, [facility] [place] [facility] [address] [id number] [place] [address]- 6217 Jun, [facility] [place] [facility] [address] [id number] [place] [address]- 5321 Jun, [facility] [place] [facility] [address] [id number] [place] [address]- 0724 Jun, [facility] [place] [facility] [address] [id number] [place] [address]- 7025 Jun, [facility] [place] [facility] [address] [id number] [place] [address]- 7746 23 May, 2012 [facility] [place] [facility] [address] [id number] [place] [address]- 2551 23 May, 2012 [facility] [place] [facility] [address] [id number] [place] [address]- 3586 16 May, 2012 [facility] [place] [facility] [address] [id number] [place] [address]- 4866 15 May, 2012 [facility] [place] [facility] [address] [id number] [place] [address]- 8999 13 May, 2013 [facility] [place] [facility] [address] [id number] [place] [address]- 1330 05 May, 2013 [facility] [place] [facility] [address] [id number] [place] [address]- 1983 03 May, 2013 [facility] [place] [facility] [address] [id number] [place] [address]- 1277 28 Apr, 2013 [facility] [place] [facility] [address] [id number] [place] [address]- 3649 27 Apr, 2013 [facility] [place] [facility] [address] [id number] [place] [address]- 8722 27 Apr, 2013 [facility] [place] [facility] [address] [id number] [place] [address]- 1308 26 Apr, 2013 [facility] [place] [facility] [address] [id number] [place] [address]- 5321 20 Apr, 2013 [facility] [place] [facility] [address] [id number] [place] [address]- 5057 18 Apr, 2013 [facility] [place] [facility] [address] [id number] [place] [address]- 6311 18 Apr, 2013 [facility] [place] [facility] [address] [id number] [place] [address]- 9091 18 Apr, 2013 [facility] [place] [facility] [address] [id number] [place] [address]- 8465 17 Apr, 2013 [facility] [place] [facility] [address] [id number] [place] [address]- 2568 14 Apr, 2013 [facility] [place] [facility] [address] [id number] [place] [address]- 3183 14 Apr, 2013 [facility] [place] [facility] [address] [id number] [place] [address]- 1530 11 Apr, 2013 [facility] [place] [facility] [address] [id number] [place] [address]- 0932 10 Apr, 2013 [facility] [place] [facility] [address] [id number] [place] [address]- 8520 09 Apr, 2013 [facility] [place] [facility] [address] [id number] [place] [address]- 9014 07 Apr, 2013 [facility] [place] [facility] [address] [id number] [place] [address]- 4730 06 Apr, 2013 [facility] [place] [facility] [address] [id number] [place] [address]- 0214 06 Apr, 2013 [facility] [place] [facility] [address] [id number] [place] [address]- 4444 05 Apr, 2013 [facility] [place] [facility] [address] [id number] [place] [address]- 7105 Apr, [facility] [place] [facility] [address] [id number] [place] [address]- 7996 March, [facility] [place] [facility] [address] [id number], [place] [address]- 9777 March, [facility] [place] [facility] [address] [id number] [place] [address]- 7247 March, [facility] [place] [facility] [address] [id number] [place] [address]- 9717 March, [facility] [place] [facility] [address] [id number] [place] [address]- 2734 March, [facility] [place] [facility] [address] [id number] [place] [address]- 5460 11 Mar, 2013 [facility] [address] [id number] [place] [address]- 1289 March, [facility] [address] [id number] [place] [address]- 5816 Feb, [facility] [address] [id number] [place] [address]- 5901 Feb, [facility] [address] [id number] [place] [address]- 6506 27 Jan, 2013 [facility] [address] [id number] [place] [address]- 8517 18 Jan, 2013 [facility] [address] [id number] [place] [address]- 4839 15 Jan, 2013 [facility] [address] [id number] [place] [address]- 0351 14 Jan, 2013 [facility] [address] [id number] [place] [address]- 2156 13 Jan, 2013 [facility] [address] [id number] [place] [address]- 6101 12 Jan, 2013 [facility] [address] [id number] [place] [address]- 0587 11 Jan, 2013 [facility] [address] [id number] [place] [address]- 1282 09 Jan, 2013 [facility] [address] [id number] [place] [address]- 4697 08 Jan, 2013 [facility] [address] [id number] [place] [address]- 8501 07 Jan, 2013 [facility] [place] [facility] [address] [id number] [place] [address]- 9935 06 Jan, 2013 [facility] [address] [id number] [place] [address]- 0037 17 Nov, 2012 [facility] [place] [facility] [address] [id number] [place] [address]- 9508 Oct, [facility] [place] [facility] [address] [id number] [place] [address]- 1591 Oct, [facility] [place] [facility] [address] [id number] [place] [address]- 8721 Oct, [facility] [place] [facility] [address] [id number] [place] [address]- 7937 Oct, [facility] [place] [facility] [address] [id number] [place] [address]- 5734 Sep, [facility] [place] [facility] [address] [id number] [place] [address]- 0322 Sep, [facility] [place] [facility] [address] [id number] [place] [address]- 2730 Sep, [facility] [place] [facility] [address] [id number] [place] [address]- 1375 Sep, [facility] [place] [facility] [address] [id number] [place] [address]- 8278 Sep, [facility] [place] [facility] [address] [id number] [place] [address]- 3355 Sep, [facility] [place] [facility] [address] [id number] [place] [address]- 9375 Sep, [facility] [place] [facility] [address] [id number] [place] [address]- 3296 Sep, [facility] [place] [facility] [address] [id number] [place] [address]- 5525 Sep, [facility] [place] [facility] [address] [id number] [place] [address]- 3063 Sep, [facility] [place] [facility] [address] [id number] [place] [address]- 7327 Sep, [facility] [place] [facility] [address] [id number] [place] [address]- 6986 Aug, [facility] [place] [facility] [address] [id number] [place] [address]- 6661 Aug, [facility] [place] [facility] [address] [id number] [place] [address]- 5718 Aug, [facility] [place] [facility] [address] [id number] [place] [address]- 6086 28 Jul, 2012 [facility] [place] [facility] [address] [id number] [place] [address]- 3708 25 Jul, 2012 [facility] [place] [facility] [address] [id number] [place] [address]- 0605 19 Jul, 2012 [facility] [place] [facility] [address] [id number] [place] [address]- 2815 17 Jul, 2012 [facility] [place] [facility] [address] [id number] [place] [address]- 4183 20 Jun, 2012 [facility] [place] [facility] [address] [id number] [place] [address]- 2401 16 Jun, 2012 [facility] [place] [facility] [address] [id number] [place] [address]- 1203 15 Jun, 2012 [facility] [place] [facility] [address] [id number] [place] [address]- 8756 Jun, [facility] [place] [facility] [address] [id number] [place] [address]- 3713 Jun, [facility] [place] [facility] [address] [id number] [place] [address]- 4016 March, [facility] [place] [facility] [address] [id number] [place] [address]- 6026 Feb, [facility] [place] [facility] [address] [id number] [place] 7077 Jan, [facility] [place] [facility] [address] [id number] [place] [address]- 5848 Jan, [facility] [place] [facility] [address] [id number] [place] [address]- 7820 22 Jan, 2012 [facility] [place] [facility] [address] [id number] [place] [address] 2546 14 Jan, 2012 [facility] [place] [facility] [address] [id number] [place] [address] 2546 14 Jan, 2012 [facility] [place] [facility] [address] [id number] [place] [address]- 0026 14 Jan, 2012 [facility] [place] [facility] [address] [id number] [place] [address] 2543 28 Dec, 2011 [facility] [place] [facility] [address] [id number] [place] [address]- 4846 27 Dec, 2011 [facility] [place] [facility] [address] [id number] [place] [address]- 2549 23 Dec, 2011 [facility] [place] [facility] [address] [id number] [place] [address] 2548 21 Dec, 2011 [facility] [place] [facility] [address] [id number] [place] [address]- 1358 20 Dec, 2011 [facility] [place] [facility] [address] [id number] [place] [address]- 1893 19 Dec, 2011 [facility] [place] [facility] [address] [id number] [place] [address]- 6896 17 Dec, 2011 [facility] [place] [facility] [address] [id number] [place] [address]- 2546 16 Dec, 2011 [facility] [place] [facility] [address] [id number] [place] [address] 2548 31 Nov, 2011 [facility] [place] [facility] [address] [id number] [place] [address] 2546 13 Oct, 2011 [facility] [place] [facility] [address] [id number] [place] [address]- 2540 18 Sep, 2011 [facility] [place] [facility] [address] [id number], [place] [address]- 8526 Sep, [facility] [address] [facility] [id number], [place] [address]- 3660 Sep, [facility] [address] [id number], [place] [address]- 2546 Sep, [facility] [address] [id number], [place] [address] 2546 Sep, [facility] [address] [id number], [place] [address] 2546 Sep, [facility] [address] [id number], [place] [address]- 4636 Jan, [facility] [address] [id number], [place] [address]- 5778 Apr, IMMUNIZATIONS No Known Immunizations SOCIAL HISTORY Never Assessed REASON FOR VISIT PLAN OF CARE VITAL SIGNS MEDICATIONS Unknown [...]
--- OUTSIDE RECORDS SUMMARY | 2018-08-05 20:19 | XMS REPORT ---
Author Author TOMASZ MARGARITA [facility] Address [address] [place] [address] Care Team Providers Care Cement Loader Name Role Phone Mahad TOLBERTYEN Unavailable PROBLEMS Type Condition ICD9-CM Code MJE91-CF Code Onset Dates Condition Status SNOMED Code Problem Generalized anxiety disorder F41.1 Active 07078375 Problem Acute non intractable tension-type headache G44.209 Active 894151199 Problem Acute right-sided low back pain with right-sided sciatica M54.41 Active 731515535 Problem Post traumatic stress disorder F43.10 Active 47098255 Problem Bipolar disorder, current episode mixed, moderate F31.62 Active 513773967 Problem Endometriosis N80.9 Active 101263740 Problem Borderline personality disorder F60.3 Active 04568081 ALLERGIES Substance Reaction Event Type Date Status Thioridazine HCl tachycardia Drug Allergy May, Active Pristiq Unknown Drug Allergy May, Active Penicillin V Potassium rash Drug Allergy May, Active Diclofenac Sodium nausea Drug Allergy May, Active Depakote fatigue Drug Allergy May, Active ENCOUNTERS Encounter Location Date Diagnosis [facility] [id number] [place] [address] 81006- 9267 Jul, [facility] [id number] [place] [address] 13242- 1631 Jun, Bipolar disorder, current episode mixed, moderate F31.62 [facility] [id number] [place] [address] 49277- 0082 May, Palpitations R00.2 [facility] [id number] [place] [address] 02784- 4740 May, Palpitations R00.2 [facility] [id number] [place] [address] 53018- 4956 May, Palpitations R00.2 and Frequent bowel movements R19.4 [place] [id number] [place] [address] 51646- 7322 May, Bipolar disorder, current episode mixed, moderate F31.62 ; Post traumatic stress disorder F43.10 and Borderline personality disorder F60.3 [facility] [id number] [place] [address] [id number] 15 Apr, 2018 Dental examination Z01.20 [facility] [id number] [place] [address] 42669 -5714 Apr, [facility] [address] 56495 -5501 Apr, Tooth pain K08.89 [place] [id number] [place] [address] 06233- 2215 Apr, Dental examination Z01.20 [place] [id number] [place] [address] 58647- 5110 06 Apr, 2018 Bipolar disorder, current episode mixed, moderate F31.62 ; Post traumatic stress disorder F43.10 and Borderline personality disorder F60.3 [facility] [id number] [place] [address] 08316 -0355 March, Abdominal pain R10.9 ; UTI symptoms R39.9 and Other microscopic hematuria R31.29 [place] [id number] [place] [address] 67165- 9208 March, [facility] [id number] [place] [address] 50772- 2902 March, Bipolar disorder, current episode mixed, moderate F31.62 ; Post traumatic stress disorder F43.10 and Borderline personality disorder F60.3 [place] [id number] [place] [address] 90065- 9230 Feb, Encounter for immunization Z23 [facility] [address] 21299- 8184 16 Feb, 2018 Bipolar disorder, current episode mixed, moderate F31.62 ; Post traumatic stress disorder F43.10 and Borderline personality disorder F60.3 [place] [address] [place] 96229857- 7216 Feb, Bipolar disorder, current episode mixed, moderate F31.62 ; Post traumatic stress disorder F43.10 ; Borderline personality disorder F60.3 and Other correction (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 Z79.899 [place] [address] [place] 731541- 5202 Jan, Encounter for immunization Z23 [place] [address] 479092- 8028 Jan, [facility] [facility] [address] 953839- 2330 Jan, Bipolar disorder, current episode mixed, moderate F31.62 [facility] [address] 88628 -8626 Jan, Lumbar back pain M54.5 [facility] [facility] [address] 52587- 3337 Dec, Low back pain M54.5 [facility] [facility] [address] 80338- 3439 Dec, Bipolar disorder, current episode mixed, moderate F31.62 [facility] [address] 72170- 4344 Dec, Generalized anxiety disorder F41.1 and Bipolar disorder, current episode mixed, moderate F31.62 [facility] [address] 71938 -6569 Nov, Acute non intractable tension-type headache G44.209 [facility] [address] 11919- 6313 Nov, Bipolar disorder, current episode mixed, moderate F31.62 ; Post traumatic stress disorder F43.10 and Borderline personality disorder F60.3 [facility] [id number] [place] [address] 89312- 2007 Nov, Bipolar disorder, current episode mixed, moderate F31.62 [facility] [address] 66129 -8461 Nov, Abdominal pain R10.9 ; History of PCOS Z87.42 ; History of endometriosis Z87.42 and Pelvic pain R10.2 [facility] [address] 71802- 8777 Nov, [facility] [address] 65387 -8221 Oct, History of PCOS Z87.42 ; History of endometriosis Z87.42 and Pain R52 [facility] [address] 38149- 8554 Oct, Bipolar disorder, current episode mixed, moderate F31.62 ; Post traumatic stress disorder F43.10 and Borderline personality disorder F60.3 [place] [id number] [place] [address] 69853- 5069 Oct, Bipolar disorder, current episode mixed, moderate F31.62 [place] [id number] [place] [address] 41025- 4468 Sep, Bipolar disorder, current episode mixed, moderate F31.62 ; Post traumatic stress disorder F43.10 ; Borderline personality disorder F60.3 and Other correction (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 Z79.899 [place] [id number] [place] [address] 98175- 7298 Sep, Bipolar disorder, current episode mixed, moderate F31.62 [facility] [address] 72117 -5007 Sep, Endometriosis N80.9 and Acute right-sided low back pain with right-sided sciatica M54.41 [facility] [facility] [address] 46172- 4722 Aug, [facility] [address] [address]- 6414 Aug, Bipolar disorder, current episode mixed, moderate F31.62 ; Post traumatic stress disorder F43.10 and Borderline personality disorder F60.3 [facility] [address] [address]- 3394 Aug, Bipolar disorder, current episode mixed, moderate F31.62 ; Post traumatic stress disorder F43.10 and Borderline personality disorder F60.3 [facility] [address] [place] [address] 88422- 8555 13 Jul, 2017 Bipolar disorder, current episode mixed, moderate F31.62 ; Post traumatic stress disorder F43.10 and Borderline personality disorder F60.3 [facility] [address] [address] 11 Jul, 2017 Pharyngitis, unspecified etiology J02.9 and Streptococcal pharyngitis J02.0 [facility] [address] [place] [address] 49382- 3619 Jun, Bipolar disorder, current episode mixed, moderate F31.62 ; Post traumatic stress disorder F43.10 and Borderline personality disorder F60.3 [facility] [address] [address]- 6918 May, [place] [id number] [place] [address] 00895- 7212 May, [facility] [address] [place] [address] 03341- 1307 May, Bipolar disorder, current episode mixed, moderate F31.62 and Generalized anxiety disorder F41.1 [facility] [id number] [place] [address] 65320- 9679 March, Bipolar disorder, current episode mixed, moderate F31.62 and Generalized anxiety disorder F41.1 [place] [id number] [place] [address] 44317- 0190 March, Pelvic pain R10.2 [facility] [id number] [place] [address] 64202- 4231 March, [facility] [id number] [place] [address]- 0144 Feb, Bipolar disorder, current episode mixed, moderate F31.62 and Generalized anxiety disorder F41.1 [facility] [address] [place] 731547- 4021 Jan, [facility] [id number] [place] [address] 05702- 2699 Jan, Bipolar disorder, current episode mixed, moderate F31.62 [place] [id number] [place] [address] 51213- 5598 Jan, Bipolar disorder, current episode mixed, moderate F31.62 [facility] [id number] [place] [address] 27164- 1744 Jan, Bilateral low back pain without sciatica M54.5 [facility] [id number] [place] [address] [id number] Jan, Dental caries K02.9 and Dental examination Z01.20 [facility] [id number] [place] [address] [id number] Jan, Encounter for dental examination and cleaning without abnormal findings Z01.20 [facility] [address] [place] [address] 31091- 4119 Jan, Bipolar disorder, current episode mixed, moderate F31.62 and Generalized anxiety disorder F41.1 [facility] [address] [place] [address] 33736- 6042 Dec, [facility] [id number] [place] [address]- 6957 Dec, Bipolar disorder, current episode mixed, moderate F31.62 and Generalized anxiety disorder F41.1 [facility] [id number] [place] [address] 2546 03 Dec, 2016 Other fatigue R53.83 and Orthostatic hypotension I95.1 [facility] [address] [place] [address] [id number] Nov, Dental examination Z01.20 [facility] [address] [place] [address] 19613 -0709 Nov, Bronchitis J40 [facility] [id number] [place] [address] 83961- 8230 Oct, Generalized anxiety disorder F41.1 [place] [id number] [place] [address] 33983- 6453 Sep, Bipolar disorder, current episode mixed, moderate F31.62 and Generalized anxiety disorder F41.1 [place] [id number] [place] [address] 37678- 7045 Sep, Bipolar disorder, current episode mixed, moderate F31.62 and Generalized anxiety disorder F41.1 [facility] [address] [place] [address] 32532 -2507 08 Jul, 2016 Upper respiratory tract infection, unspecified type J06.9 [place] [id number] [place] [address] 48500- 6651 Jun, Bipolar disorder, current episode mixed, moderate F31.62 and Generalized anxiety disorder F41.1 [place] [id number] [place] [address] 28289- 8843 Apr, [facility] [id number] [place] [address] 00947- 6815 Apr, Encounter for test, result positive Z32.01 [facility] [id number] [place] [address] 13626- 1171 March, [facility] [id number] [place] [address] 45247- 0685 March, Bipolar disorder, current episode mixed, moderate F31.62 and Generalized anxiety disorder F41.1 [facility] [address] [address]- 7473 March, Bipolar disorder, current episode mixed, moderate F31.62 and Generalized anxiety disorder F41.1 [facility] [address] [address]- 4092 March, [facility] [address] [place] [address] 76182- 5448 March, [facility] [address] [place] [address] 35527- 0172 Feb, [facility] [address] [place] [address] 00320- 8333 Feb, [facility] [address] [place] [address] 15591- 7568 Feb, Bipolar disorder, current episode mixed, moderate F31.62 and Generalized anxiety disorder F41.1 [facility] [address] [address]- 0112 Jan, Abdominal pain R10.9 [facility] [address] [place] [address] 80640- 1250 Jan, [facility] [address] [place] [address] 56629- 8274 29 Dec, 2015 Dental examination Z01.20 [facility] [address] [address]- 6323 Dec, Dental examination Z01.20 and Dental caries K02.9 [facility] [address] [address]- 1519 15 Dec, 2015 Bipolar disorder, current episode mixed, moderate F31.62 and Generalized anxiety disorder F41.1 [facility] [address] [address]- 5960 Dec, [facility] [address] [address]- 4918 Nov, Bipolar disorder, current episode mixed, moderate F31.62 ; Generalized anxiety disorder F41.1 and Seizure-like activity R56.9 [facility] [id number] [place] [address] 42109- 6933 Oct, [facility] [id number] [place] [address] 09223- 0303 Oct, Bipolar disorder, current episode mixed, moderate F31.62 [facility] [address] 73862- 1016 Oct, Well woman exam Z01.419 ; Encounter [...] Tobacco use Z72.0 and Hot flashes N95.1 [facility] [address] 59482- 0823 Oct, Seizure-like activity R56.9 and Irregular periods N92.6 [place] [id number] [place] [address] 16477- 3260 Oct, Bipolar disorder, current episode mixed, moderate F31.62 ; Generalized anxiety disorder F41.1 and Underweight R63.6 [facility] [address] [place] [address] 41390- 8080 Oct, [facility] [address] 78366- 8031 Oct, Generalized anxiety disorder F41.1 and Unspecified mood [ affective] disorder F39 [facility] [id number] [place] [address] 12870 -5796 Oct, Back pain M54.9 and Anxiety F41.9 [facility] [address] [place] [address] 66655- 1244 Oct, [facility] [id number] [place] [address] 67157 -9626 Sep, Arm pain, left M79.602 [facility] [id number] [place] [address] 94673- 3505 Sep, [facility] [id number] [place] [address] [id number] Sep, Dental examination Z01.20 and Dental caries K02.9 [facility] [address] 52238- 5287 Sep, Generalized anxiety disorder F41.1 and Unspecified episodic mood disorder F39 [facility] [id number] [place] [address] 53372- 2608 Sep, Bilateral low back pain without sciatica M54.5 and Seizure- like activity R56.9 [facility] [id number] [place] [address] 33317- 5255 Aug, [facility] [id number] [place] [address] 76551- 0018 Aug, [facility] [id number] [place] [address] 16260- 5145 Aug, [facility] [id number] [place] [address] 75243- 6510 Aug, Visual changes H53.9 and Bilateral low back pain without sciatica M54.5 [facility] [id number] [place] [address] 17362- 7659 Jul, [facility] [id number] [place] [address] 77456- 2592 Jun, Bipolar I disorder, most recent episode (or current) mixed, moderate 296.62 ; Generalized anxiety disorder 300.02 and High risk medication use V58.69 [facility] [id number] [place] [address] 80541- 1377 Jun, [facility] [id number] [place] [address] 44773- 9911 May, [facility] [id number] [place] [address] 84628- 5340 May, Bipolar I disorder, most recent episode (or current) mixed, moderate 296.62 and Generalized anxiety disorder 300.02 [facility] [id number] [place] [address] [id number] May, Dental examination V72.2 [facility] [id number] [place] [address] 69479- 6016 March, Bipolar I disorder, most recent episode (or current) mixed, moderate 296.62 and Generalized anxiety disorder 300.02 [facility] [id number] [place] [address] 87569- 8335 March, [facility] [id number] [place] [address] 92997- 3853 March, [facility] [id number] [place] [address] 14263- 6770 March, Underweight 783.22 ; Hand pain, right 729.5 and Reflux gastritis 535.40 [facility] [id number] [place] [address] 27146- 5133 Feb, [facility] [id number] [place] [address] 79707- 3915 Feb, [facility] [id number] [place] [address] 01560- 5529 Jan, [facility] [id number] [place] [address] 21530- 0719 Jan, [facility] [id number] [place] [address] 11767- 3399 16 Jan, 2015 [facility] [id number] [place] [address] 36571- 5084 16 Jan, 2015 [facility] [place] [facility] [address] [id number] [place] [address]- 2340 Jan, [facility] [place] [facility] [address] [id number] [place]- 4509 Jan, [facility] [place] [facility] [address] [facility] [id number] [place] [address]- 5415 Jan, [facility] [place] [facility] [address] [id number] [place] [address]- 7870 Jan, [facility] [place] [facility] [address] [id number] [place] [address]- 7441 Jan, [facility] [place] [facility] [address] [facility] [id number] [place] [address]- 0104 Jan, [facility] [place] [facility] [address] [facility] [id number] [place] [address]- 3978 Jan, [facility] [place] [facility] [address] [facility] [id number] [place] [address]- 4413 Jan, [facility] [place] [facility] [address] [facility] [id number] [place] [address]- 1112 Dec, [facility] [place] [facility] [address] [facility] [id number] [place] [address]- 8798 Dec, [facility] [place] [facility] [address] [facility] [id number] [place] [address]- 6060 Dec, 2014 [facility] [place] [facility] [address] [facility] [id number] [place] [address]- 9009 Dec, 2014 [facility] [place] [facility] [address] [id number] [place] [address]- 1840 18 Dec, 2014 [facility] [place] [facility] [address] [facility] [id number] [place] [address]- 5144 Dec, 2014 [facility] [place] [facility] [address] [facility] [id number] [place] [address]- 2560 Dec, 2014 [facility] [place] [facility] [address] [id number] [place] [address]- 9987 Dec, 2014 [facility] [place] [facility] [address] [id number] [place] [address]- 1236 Dec, 2014 [facility] [place] [facility] [address] [id number] [place] [address]- 6683 Dec, 2014 [facility] [place] [facility] [address] [id number] [place] [address]- 0771 Dec, 2014 [facility] [place] [facility] [address] [id number] [place] [address]- 0764 Dec, 2014 [facility] [place] [facility] [address] [id number] [place] [address]- 2432 Dec, 2014 [facility] [place] [facility] [address] [id number] [place] [address]- 3845 Dec, 2014 [facility] [place] [facility] [address] [id number] [place] [address]- 6806 Dec, 2014 [facility] [place] [facility] [address] [id number] [place] [address]- 4474 Dec, 2014 [facility] [place] [facility] [address] [id number] [place] [address]- 9146 Dec, 2014 [facility] [place] [facility] [address] [id number] [place] [address]- 9816 Dec, 2014 [facility] [place] [facility] [address] [id number] [place] [address]- 1404 Dec, 2014 [facility] [place] [facility] [address] [id number] [place] [address]- 7156 Nov, [facility] [place] [facility] [address] [id number] [place] [address]- 6540 Nov, [facility] [place] [facility] [address] [id number] [place] [address]- 1250 Nov, [facility] [place] [facility] [address] [id number] [place] [address]- 2546 Nov, [facility] [address] [id number] [place] [address]- 3224 Nov, [facility] [place] [facility] [address] [id number] [place] [address]- 2546 Nov, [facility] [address] [id number] [place] [id number] Nov, [facility] [place] [facility] [address] [id number] [place] [address]- 2546 Nov, [facility] [place] [facility] [address] [id number] [place] [address]- 1416 Nov, [facility] [place] [facility] [address] [id number] [place] [id number] Nov, [facility] [place] [facility] [address] [id number] [place] [address]- 5326 Nov, [facility] [place] [facility] [address] [id number] [place] [address]- 6519 Nov, [facility] [place] [facility] [address] [id number] [place] [address]- 1896 Oct, [facility] [place] [facility] [address] [id number] [place] [address] Oct, [facility] [place] [facility] [address] [id number] [place] [address] Oct, [facility] [place] [facility] [address] [id number] [place] [address] 30 Oct, 2014 [facility] [place] [facility] [address] [id number] [place] [address] Oct, [facility] [place] [facility] [address] [id number] [place] [address] Oct, [facility] [place] [facility] [address] [id number] [place] [address] Oct, [facility] [place] [facility] [address] [id number] [place] [address] Oct, [facility] [place] [facility] [address] [id number] [place] [address] Oct, [facility] [place] [facility] [address] [id number] [place] [address] Oct, [facility] [place] [facility] [address] [id number] [place] [address] Oct, [facility] [place] [facility] [address] [id number] [place] [address] Oct, [facility] [place] [facility] [address] [id number] [place] [address] Sep, [facility] [place] [facility] [address] [id number] [place] [address] Sep, [facility] [place] [facility] [address] [id number] [place] [address] Sep, [facility] [place] [facility] [address] [id number] [place] [address] Sep, [facility] [place] [facility] [address] [id number] [place] [address] Sep, [facility] [place] [facility] [address] [id number] [place] [address] Sep, [facility] [place] [facility] [address] [id number] [place] [address] Sep, [facility] [place] [facility] [address] [id number] [place] [address] Sep, [facility] [place] [facility] [address] [id number] [place] [address] Aug, [facility] [place] [facility] [address] [id number] [place] [address] Aug, [facility] [place] [facility] [address] [id number] [place] [address] Aug, [facility] [place] [facility] [address] [id number] [place] [address] Aug, [facility] [place] [facility] [address] [address] [id number] [place] [address] Aug, [facility] [place] [facility] [address] [id number] [place] [address] Aug, [facility] [place] [facility] [address] [id number] [place] [address] 7545 Aug, [facility] [place] [facility] [address] [id number] [place] [address] 9542 Aug, [facility] [place] [facility] [address] [id number] [place] [address] 4366 Aug, [facility] [place] [facility] [address] [id number] [place] [address] 4388 Aug, [facility] [place] [facility] [address] [id number] [place] [address]- 5356 Aug, [facility] [place] [facility] [address] [id number] [place] [address] 0319 Aug, [facility] [place] [facility] [address] [id number] [place] [address] 0165 Aug, [facility] [place] [facility] [address] [id number] [place] [address] 6348 Jul, [facility] [place] [facility] [address] [id number] [place] [address] 1959 Jul, [facility] [place] [facility] [address] [id number] [place] [address] 1877 Jul, [facility] [place] [facility] [address] [id number] [place] [address] 4474 Jul, [facility] [place] [facility] [address] [id number] [place] [address] 8927 Jun, [facility] [place] [facility] [address] [id number] [place] [address] 7901 Jun, [facility] [place] [facility] [address] [id number] [place] [address]- 4361 Jun, [facility] [place] [facility] [address] [id number] [place] [address] 4818 Jun, [facility] [place] [facility] [address] [id number] [place] [address]- 7210 Jun, [facility] [place] [facility] [address] [id number] [place] [address]- 5985 Jun, [facility] [place] [facility] [address] [id number] [place] [address]- 5629 May, [facility] [place] [facility] [address] [id number] [place] [address]- 9173 May, [facility] [place] [facility] [address] [id number] [place] [address]- 6894 May, [facility] [place] [facility] [address] [id number] [place] [address]- 5168 May, [facility] [place] [facility] [address] [id number] [place] [address]- 5118 Apr, [facility] [place] [facility] [address] [id number] [place] [address]- 0007 Apr, [facility] [place] [facility] [address] [id number] [place] [address]- 4412 March, [facility] [place] [facility] [address] [id number] [place] [address]- 6130 March, [facility] [place] [facility] [address] [id number] [place] [address]- 8574 March, [facility] [place] [facility] [address] [id number] [place] [address] 1938 March, [facility] [place] [facility] [address] [id number] [place] [address] 3412 March, [facility] [address] [id number] [place] [address]- 3938 March, [facility] [place] [facility] [address] [id number] [place] [address]- 4424 Feb, [facility] [place] [facility] [address] [id number] [place] [address]- 2632 Feb, [facility] [place] [facility] [address] [id number] [place] [address]- 2984 Dec, [facility] [place] [facility] [address] [id number] [place] [address]- 3375 Dec, [facility] [place] [facility] [address] [id number] [place] [address] 1979 Nov, [facility] [place] [facility] [address] [id number] [place] [address]- 3451 Nov, [facility] [place] [facility] [address] [id number] [place] [address]- 8182 Sep, [facility] [place] [facility] [address] [id number] [place] [address]- 9008 Sep, [facility] [place] [facility] [address] [id number] [place] [address]- 2529 Sep, [facility] [place] [facility] [address] [id number] [place] [address]- 3759 Sep, [facility] [place] [facility] [address] [id number] [place] [address]- 5182 Sep, [facility] [place] [facility] [address] [id number] [place] [address]- 2973 Sep, [facility] [place] [facility] [address] [id number] [place] [address]- 5842 Sep, [facility] [place] [facility] [address] [id number] [place] [address]- 3945 Aug, [facility] [place] [facility] [address] [id number] [place] [address]- 6324 30 Aug, 2013 [facility] [place] [facility] [address] [id number] [place] [address]- 8393 Aug, [facility] [place] [facility] [address] [id number] [place] [address]- 3039 Aug, [facility] [place] [facility] [address] [id number] [place] [address]- 5533 Aug, [facility] [place] [facility] [address] [id number] [place] [address]- 5579 Aug, [facility] [place] [facility] [address] [id number] [place] [address]- 7298 Jul, [facility] [place] [facility] [address] [id number] [place] [address]- 1555 Jul, [facility] [place] [facility] [address] [id number] [place] [address]- 1989 16 Jul, 2013 [facility] [place] [facility] [address] [id number] [place] [address]- 8141 Jul, [facility] [place] [facility] [address] [id number] [place] [address]- 2407 Jun, [facility] [place] [facility] [address] [id number] [place] [address]- 5078 Jun, [facility] [place] [facility] [address] [id number] [place] [address]- 1675 Jun, [facility] [place] [facility] [address] [id number] [place] [address]- 9039 Jun, [facility] [place] [facility] [address] [id number] [place] [address]- 7456 Jun, [facility] [place] [facility] [address] [id number] [place] [address]- 0642 Jun, [facility] [place] [facility] [address] [id number] [place] [address] 1986 Jun, [facility] [place] [facility] [address] [id number] [place] [address]- 2483 23 May, 2012 [facility] [place] [facility] [address] [id number] [place] [address]- 6841 23 May, 2012 [facility] [place] [facility] [address] [id number] [place] [address]- 2540 16 May, 2012 [facility] [place] [facility] [address] [id number] [place] [address]- 0441 15 May, 2012 [facility] [place] [facility] [address] [id number] [place] [address]- 5051 13 May, 2013 [facility] [place] [facility] [address] [id number] [place] [address]- 9434 05 May, 2013 [facility] [place] [facility] [address] [id number] [place] [address]- 7235 03 May, 2013 [facility] [place] [facility] [address] [id number] [place] [address]- 6858 28 Apr, 2013 [facility] [place] [facility] [address] [id number] [place] [address]- 2226 Apr, [facility] [place] [facility] [address] [id number] [place] [address]- 7116 Apr, [facility] [place] [facility] [address] [id number] [place] [address]- 8274 Apr, [facility] [place] [facility] [address] [id number] [place] [address]- 4460 20 Apr, 2013 [facility] [place] [facility] [address] [id number] [place] [address]- 8978 18 Apr, 2013 [facility] [place] [facility] [address] [id number] [place] [address]- 9592 Apr, [facility] [place] [facility] [address] [id number] [place] [address]- 3411 18 Apr, 2013 [facility] [place] [facility] [address] [id number] [place] [address]- 6987 17 Apr, 2013 [facility] [place] [facility] [address] [id number] [place] [address]- 2209 14 Apr, 2013 [facility] [place] [facility] [address] [id number] [place] [address]- 5731 14 Apr, 2013 [facility] [place] [facility] [address] [id number] [place] [address]- 1651 11 Apr, 2013 [facility] [place] [facility] [address] [id number] [place] [address]- 2528 10 Apr, 2013 [facility] [place] [facility] [address] [id number] [place] [address]- 7330 09 Apr, 2013 [facility] [place] [facility] [address] [id number] [place] [address]- 8296 07 Apr, 2013 [facility] [place] [facility] [address] [id number] [place] [address]- 2710 06 Apr, 2013 [facility] [place] [facility] [address] [id number] [place] [address]- 6629 06 Apr, 2013 [facility] [place] [facility] [address] [id number] [place] [address]- 2546 05 Apr, 2013 [facility] [place] [facility] [address] [id number] [place] [address]- 9431 Apr, [facility] [place] [facility] [address] [id number] [place] [address]- 3799 March, [facility] [place] [facility] [address] [id number] [place] [address]- 0713 March, [facility] [place] [facility] [address] [id number] [place] [address]- 7668 March, [facility] [place] [facility] [address] [id number] [place] [address]- 2551 March, [facility] [place] [facility] [address] [id number] [place] [address]- 9502 March, [facility] [place] [facility] [address] [id number] [place] [address]- 1501 11 Mar, 2013 [facility] [address] [id number] [place] [address]- 6935 March, [facility] [address] [id number] [place] [address]- 0135 Feb, [facility] [address] [id number] [place] [address]- 7353 Feb, [facility] [address] [id number] [place] [address]- 4369 27 Jan, 2013 [facility] [address] [id number] [place] [address]- 0242 18 Jan, 2013 [facility] [address] [id number] [place] [address]- 9900 15 Jan, 2013 [facility] [address] [id number] [place] [address]- 8280 14 Jan, 2013 [facility] [address] [id number] [place] [address]- 9171 13 Jan, 2013 [facility] [address] [id number] [place] [address]- 9941 12 Jan, 2013 [facility] [address] [id number] [place] [address]- 9330 11 Jan, 2013 [facility] [address] [id number] [place] [address]- 6919 09 Jan, 2013 [facility] [address] [id number] [place] [address]- 9570 08 Jan, 2013 [facility] [address] [id number] [place] [address]- 9019 07 Jan, 2013 [facility] [address] [id number] [place] [address]- 3816 06 Jan, 2013 [facility] [address] [id number] [place] [address]- 8901 17 Nov, 2012 [facility] [place] [facility] [address] [id number] [place] [address]- 7472 Oct, [facility] [place] [facility] [address] [id number] [place] [address]- 9930 Oct, [facility] [place] [facility] [address] [id number] [place] [address]- 8523 Oct, [facility] [place] [facility] [address] [id number] [place] [address]- 2270 Oct, [facility] [place] [facility] [address] [id number] [place] [address]- 9270 Sep, [facility] [place] [facility] [address] [id number] [place] [address]- 9116 Sep, [facility] [place] [facility] [address] [id number] [place] [address]- 1899 Sep, [facility] [place] [facility] [address] [id number] [place] [address]- 2297 Sep, [facility] [place] [facility] [address] [id number] [place] [address]- 5943 Sep, [facility] [place] [facility] [address] [id number] [place] [address]- 8500 Sep, [facility] [place] [facility] [address] [id number] [place] [address]- 4656 Sep, [facility] [place] [facility] [address] [id number] [place] [address]- 2705 Sep, [facility] [place] [facility] [address] [id number] [place] [address]- 0105 Sep, [facility] [place] [facility] [address] [id number] [place] [address]- 9996 Sep, [facility] [place] [facility] [address] [id number] [place] [address]- 8279 Sep, [facility] [place] [facility] [address] [id number] [place] [address]- 8049 Aug, [facility] [place] [facility] [address] [id number] [place] [address]- 9923 Aug, [facility] [place] [facility] [address] [id number] [place] [address] Aug, [facility] [place] [facility] [address] [id number] [place] [address]- 8482 28 Jul, 2012 [facility] [place] [facility] [address] [id number] [place] [address]- 5455 25 Jul, 2012 [facility] [place] [facility] [address] [id number] [place] [address]- 4254 19 Jul, 2012 [facility] [place] [facility] [address] [id number] [place] [address]- 3299 17 Jul, 2012 [facility] [place] [facility] [address] [id number] [place] [address]- 9332 20 Jun, 2012 [facility] [place] [facility] [address] [id number] [place] [address]- 4498 16 Jun, 2012 [facility] [place] [facility] [address] [id number] [place] [address]- 6069 15 Jun, 2012 [facility] [place] [facility] [address] [id number] [place] [address]- 2690 15 Jun, 2012 [facility] [place] [facility] [address] [id number] [place] [address]- 0590 Jun, [facility] [place] [facility] [address] [id number] [place] [address]- 4390 March, [facility] [place] [facility] [address] [id number] [place] [address]- 7976 Feb, [facility] [place] [facility] [address] [id number] [place] [address]- 4188 Jan, [facility] [place] [facility] [address] [id number] [place] [address]- 6151 Jan, [facility] [place] [facility] [address] [id number] [place] [address]- 9176 22 Jan, 2012 [facility] [place] [facility] [address] [id number] [place] [address]- 4865 14 Jan, 2012 [facility] [place] [facility] [address] [id number] [place] [address]- 4966 14 Jan, 2012 [facility] [place] [facility] [address] [id number] [place] [address]- 1458 14 Jan, 2012 [facility] [place] [facility] [address] [id number] [place] [address]- 3899 28 Dec, 2011 [facility] [place] [facility] [address] [id number] [place] [address]- 1535 27 Dec, 2011 [facility] [place] [facility] [address] [id number] [place] [address]- 9873 23 Dec, 2011 [facility] [place] [facility] [address] [id number] [place] [address]- 3992 21 Dec, 2011 [facility] [place] [facility] [address] [id number] [place] [address]- 5124 20 Dec, 2011 [facility] [place] [facility] [address] [id number] [place] [address]- 8619 19 Dec, 2011 [facility] [place] [facility] [address] [id number] [place] [address]- 7865 17 Dec, 2011 [facility] [place] [facility] [address] [id number] [place] [address]- 7783 16 Dec, 2011 [facility] [place] [facility] [address] [id number] [place] [address]- 5866 Nov, [facility] [place] [facility] [address] [id number] [place] [address]26 Oct, [facility] [place] [facility] [address] [id number] [place] [address]10 Sep, [facility] [place] [facility] [address] [id number] [place] [address]- 4252 Sep, [facility] [address] [facility] [id number] [place] [address]- 8276 Sep, [facility] [address] [id number] [place] [address]- 8546 Sep, [facility] [address] [facility] [id number] [place] [address]- 6385 Sep, [facility] [address] [facility] [id number] [place] [address]- 5370 Sep, [facility] [address] [facility] [id number] [place] [address]- 2368 Jan, [facility] [address] [id number] [place] [address]- 3496 Apr, IMMUNIZATIONS No Known Immunizations SOCIAL HISTORY Never Assessed REASON FOR VISIT f/u----FELICITY Sepulveda PLAN OF CARE Activity Details Follow Up 2 Months Reason: f/u VITAL SIGNS Height 66 in 2018-05-17 Weight 135 lbs 2018-05-17 Heart Rate 100 bpm 2018-05-17 Respiratory Rate 20 2018-05-17 BMI 21.79 kg/m2 2018-05-17 Blood pressure systolic 102 mmHg 2018-05-17 Blood pressure diastolic 56 mmHg 2018-05-17 MEDICATIONS Medication Instructions Dosage Frequency Start Date End Date Duration Status Lamictal 200 mg Orally Once a day 1 tablet 24h 30 days Active Clindamycin HCl 300 MG Orally every 6 hrs 1 capsule 6h 10 days Active Abilify 10 MG Orally Once a day 1 tablet 24h 30 days Active Oxycodone-Acetaminophen 10-325 MG Orally every 4 hrs 1 tablet as needed 4h Active Klonopin 0.5 MG Orally 4 times a day as needed 1 tablet 30 days Active Ibuprofen 800 MG Orally Three times a day 1 tablet with food or milk as needed 8h March, Active Remeron 45 MG Orally Once a day at bedtime 1 tablet 30 days Active RESULTS No Results PROCEDURES Procedure Date Ordered Result Body Site DRUG TEST PRSMV CHEM ANLYZR May 17, 2018 INSTRUCTIONS MEDICATIONS ADMINISTERED No Known Medications [...]
--- OUTSIDE RECORDS SUMMARY | 2018-08-05 20:20 | XMS REPORT ---
Author Author PAPITO RAMIREZ Mignon [facility] Address Unknown Care Team Providers Care Drapery Installer Name Role Phone PAPITO RAMIREZ Unavailable PROBLEMS Type Condition ICD9-CM Code UEU82-CS Code Onset Dates Condition Status SNOMED Code Problem Generalized anxiety disorder F41.1 Active 24222708 Problem Acute non intractable tension-type headache G44.209 Active 499278477 Problem Acute right-sided low back pain with right-sided sciatica M54.41 Active 383804250 Problem Post traumatic stress disorder F43.10 Active 06213062 Problem Bipolar disorder, current episode mixed, moderate F31.62 Active 995882856 Problem Endometriosis N80.9 Active 641599038 Problem Borderline personality disorder F60.3 Active 91452116 ALLERGIES Substance Reaction Event Type Date Status Thioridazine HCl tachycardia Drug Allergy Apr, Active Pristiq Unknown Drug Allergy Apr, Active Penicillin V Potassium rash Drug Allergy Apr, Active Diclofenac Sodium nausea Drug Allergy Apr, Active Depakote fatigue Drug Allergy Apr, Active ENCOUNTERS Encounter Location Date Diagnosis [facility] [id number] [place] [address] 86818- 1047 Jul, [facility] [id number] [place] [address] [id number] Jun, [facility] [id number] [place] [address] 00203- 5351 Jun, Bipolar disorder, current episode mixed, moderate F31.62 [facility] [address] 82141- 4910 May, Palpitations R00.2 [facility] [id number] [place] [address] 57538- 6913 May, Palpitations R00.2 [facility] [address] [place] [address]- 9451 12 May, 2018 Palpitations R00.2 and Frequent bowel movements R19.4 [facility] [address] 20550- 0487 05 May, 2018 Bipolar disorder, current episode mixed, moderate F31.62 ; Post traumatic stress disorder F43.10 and Borderline personality disorder F60.3 [facility] [id number] [place] [address] [id number] 15 Apr, 2018 Dental examination Z01.20 [facility] [id number] [place] [address] 03800 -9888 15 Apr, 2018 [facility] [address] 98180- 0607 15 Apr, 2018 Dental examination Z01.20 [facility] [id number] [place] [address] 24658 -7386 15 Apr, 2018 Tooth pain K08.89 [facility] [id number] [place] [address] 66063- 4484 06 Apr, 2018 Bipolar disorder, current episode mixed, moderate F31.62 ; Post traumatic stress disorder F43.10 and Borderline personality disorder F60.3 [facility] [id number] [place] [address] 91504 -4547 March, Abdominal pain R10.9 ; UTI symptoms R39.9 and Other microscopic hematuria R31.29 [facility] [id number] [place] [address] 51900- 8896 March, [facility] [id number] [place] [address] 59597- 7595 March, Bipolar disorder, current episode mixed, moderate F31.62 ; Post traumatic stress disorder F43.10 and Borderline personality disorder F60.3 [facility] [id number] [place] [address] 58072- 2720 Feb, Encounter for immunization Z23 [facility] [address] 00672- 9640 Feb, Bipolar disorder, current episode mixed, moderate F31.62 ; Post traumatic stress disorder F43.10 and Borderline personality disorder F60.3 [facility] [id number] [place] [address] Feb, Bipolar disorder, current episode mixed, moderate F31.62 ; Post traumatic stress disorder F43.10 ; Borderline personality disorder F60.3 and Other care home (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 Z79.899 [facility] [address] 254738- 3093 Jan, Encounter for immunization Z23 [facility] [address] 771651- 7781 Jan, [facility] [address] 44713- 1872 Jan, Bipolar disorder, current episode mixed, moderate F31.62 [facility] [id number] [place] [address] 42200 -4292 Jan, Lumbar back pain M54.5 [facility] [address] 23123- 6321 Dec, Low back pain M54.5 [facility] [address] 46846- 3720 13 Dec, 2017 Bipolar disorder, current episode mixed, moderate F31.62 [facility] [id number] [place] [address] 93473- 2419 Dec, Generalized anxiety disorder F41.1 and Bipolar disorder, current episode mixed, moderate F31.62 [facility] [id number] [place] [address] 11256 -8095 Nov, Acute non intractable tension-type headache G44.209 [facility] [id number] [place] [address] 01257- 0423 Nov, Bipolar disorder, current episode mixed, moderate F31.62 ; Post traumatic stress disorder F43.10 and Borderline personality disorder F60.3 [facility] [id number] [place] [address] 65189- 1326 Nov, Bipolar disorder, current episode mixed, moderate F31.[address] [facility] [id number] [place] [address] 95720 -0451 Nov, Abdominal pain R10.9 ; History of PCOS Z87.42 ; History of endometriosis Z87.42 and Pelvic pain R10.2 [facility] [id number] [place] [address] 67879- 3030 Nov, [facility] [address] 18992 -5880 Oct, History of PCOS Z87.42 ; History of endometriosis Z87.42 and Pain R52 [facility] [facility] [address] 94772- 5569 Oct, Bipolar disorder, current episode mixed, moderate F31.62 ; Post traumatic stress disorder F43.10 and Borderline personality disorder F60.3 [facility] [id number] [place] [address] 63504- 2517 Oct, Bipolar disorder, current episode mixed, moderate F31.62 [facility] [id number] [place] [address] 51108- 5164 Sep, Bipolar disorder, current episode mixed, moderate F31.62 ; Post traumatic stress disorder F43.10 ; Borderline personality disorder F60.3 and Other care home (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 Z79.899 [facility] [id number] [place] [address] 83453- 9268 Sep, Bipolar disorder, current episode mixed, moderate F31.62 [facility] [id number] [place] [address] 59155 -2886 Sep, Endometriosis N80.9 and Acute right-sided low back pain with right-sided sciatica M54.41 [facility] [address] [place] [address]- 8955 Aug, [facility] [id number] [place] [address] 84775- 9404 Aug, Bipolar disorder, current episode mixed, moderate F31.62 ; Post traumatic stress disorder F43.10 and Borderline personality disorder F60.3 [facility] [address] [address]- 2951 Aug, Bipolar disorder, current episode mixed, moderate F31.62 ; Post traumatic stress disorder F43.10 and Borderline personality disorder F60.3 [facility] [address] [place] [address] 83673- 1994 13 Jul, 2017 Bipolar disorder, current episode mixed, moderate F31.62 ; Post traumatic stress disorder F43.10 and Borderline personality disorder F60.3 [facility] [address] [address] 11 Jul, 2017 Pharyngitis, unspecified etiology J02.9 and Streptococcal pharyngitis J02.0 [facility] [address] [place] [address] 31080- 2935 Jun, Bipolar disorder, current episode mixed, moderate F31.62 ; Post traumatic stress disorder F43.10 and Borderline personality disorder F60.3 [facility] [address] [place] [address] 58430- 4588 May, [facility] [address] [place] [address] 99084- 5454 May, [facility] [address] [place] [address] 14732- 5127 May, Bipolar disorder, current episode mixed, moderate F31.62 and Generalized anxiety disorder F41.1 [facility] [address] [place] [address] 73991- 7364 March, Bipolar disorder, current episode mixed, moderate F31.62 and Generalized anxiety disorder F41.1 [facility] [id number] [place] [address] 86753- 8898 March, Pelvic pain R10.2 [facility] [id number] [place] [address] March, [facility] [id number] [place] [address] 6912 Feb, Bipolar disorder, current episode mixed, moderate F31.62 and Generalized anxiety disorder F41.1 [facility] [id number] [place] [address] 92040- 2589 Jan, [facility] [id number] [place] [address] 86046- 1763 Jan, Bipolar disorder, current episode mixed, moderate F31.62 [facility] [id number] [place] [address] 29691- 9157 Jan, Bipolar disorder, current episode mixed, moderate F31.62 [facility] [id number] [place] [address] 53805- 6934 Jan, Bilateral low back pain without sciatica M54.5 [facility] [id number] [place] [address] [id number] Jan, Dental caries K02.9 and Dental examination Z01.20 [facility] [id number] [place] [address] [id number] Jan, Encounter for dental examination and cleaning without abnormal findings Z01.20 [facility] [id number] [place] [address] 76791- 2481 Jan, Bipolar disorder, current episode mixed, moderate F31.62 and Generalized anxiety disorder F41.1 [facility] [id number] [place] [address] 79824- 5982 Dec, [facility] [id number] [place] [address] 04709- 5057 Dec, Bipolar disorder, current episode mixed, moderate F31.62 and Generalized anxiety disorder F41.1 [facility] [address] [address]- 9235 03 Dec, 2016 Other fatigue R53.83 and Orthostatic hypotension I95.1 [facility] [address] [id number] Nov, Dental examination Z01.20 [facility] [id number] [place] [address] 13350 -2702 Nov, Bronchitis J40 [facility] [id number] [place] [address] 06732- 0016 Oct, Generalized anxiety disorder F41.1 [facility] [id number] [place] [address] 99418- 6856 Sep, Bipolar disorder, current episode mixed, moderate F31.62 and Generalized anxiety disorder F41.1 [facility] [id number] [place] [address] 83039- 8522 Sep, Bipolar disorder, current episode mixed, moderate F31.62 and Generalized anxiety disorder F41.1 [facility] [address] [place] [address] 02147 -9965 08 Jul, 2016 Upper respiratory tract infection, unspecified type J06.9 [facility] [id number] [place] [address] 02958- 8348 Jun, Bipolar disorder, current episode mixed, moderate F31.62 and Generalized anxiety disorder F41.1 [facility] [address] [place] [address] 63505- 8338 Apr, [facility] [id number] [place] [address] 50183- 8559 Apr, Encounter for test, result positive Z32.01 [facility] [address] [place] [address] 51395- 8897 March, [facility] [id number] [place] [address] 50527- 3576 March, Bipolar disorder, current episode mixed, moderate F31.62 and Generalized anxiety disorder F41.1 [facility] [id number] [address]- 3949 March, Bipolar disorder, current episode mixed, moderate F31.62 and Generalized anxiety disorder F41.1 [facility] [id number] [address]- 0458 March, [facility] [id number] [place] [address] 37066- 5193 March, [facility] [id number] [place] [address] 51749- 8651 Feb, [facility] [id number] [place] [address] 57264- 8944 Feb, [facility] [id number] [place] [address] 71485- 0253 Feb, Bipolar disorder, current episode mixed, moderate F31.62 and Generalized anxiety disorder F41.1 [facility] [address] [place] [address] 93154- 9321 Jan, Abdominal pain R10.9 [facility] [id number] [place] [address] 82282- 7101 Jan, [facility] [address] [place] [address] 28027- 2022 Dec, Dental examination Z01.20 [facility] [id number] [place] [address] 22951- 5795 Dec, Dental examination Z01.20 and Dental caries K02.9 [facility] [address] [place] [address] 06636- 4585 15 Dec, 2015 Bipolar disorder, current episode mixed, moderate F31.62 and Generalized anxiety disorder F41.1 [facility] [address] [place] [address] 10634- 8787 Dec, [facility] [id number] [place] [address] 38702- 5298 Nov, Bipolar disorder, current episode mixed, moderate F31.62 ; Generalized anxiety disorder F41.1 and Seizure-like activity R56.9 [facility] [facility] [address] 87812- 8570 Oct, [facility] [address] 12700- 7670 Oct, Bipolar disorder, current episode mixed, moderate F31.62 [facility] [address] 48637- 3573 14 Oct, 2015 Well woman exam Z01.419 [...] Tobacco use Z72.0 and Hot flashes N95.1 [facility] [facility] [address] 61551- 9945 Oct, Seizure-like activity R56.9 and Irregular periods N92.6 [facility] [address] 00906- 8274 Oct, Bipolar disorder, current episode mixed, moderate F31.62 ; Generalized anxiety disorder F41.1 and Underweight R63.6 [facility] [id number] [place] [address] 22183- 7750 Oct, [facility] [address] 55742- 3144 Oct, Generalized anxiety disorder F41.1 and Unspecified mood [ affective] disorder F39 [facility] [address] 68157 -1203 Oct, Back pain M54.9 and Anxiety F41.9 [facility] [id number] [place] [address] 69375- 7681 Oct, [facility] [id number] [place] [address] 33605 -5975 Sep, Arm pain, left M79.602 [facility] [address] 28110- 6769 Sep, [facility] [id number] [place] [address] [id number] Sep, Dental examination Z01.20 and Dental caries K02.9 [facility] [address] 68337- 0508 Sep, Generalized anxiety disorder F41.1 and Unspecified episodic mood disorder F39 [facility] [address] 59303- 5123 Sep, Bilateral low back pain without sciatica M54.5 and Seizure- like activity R56.9 [facility] [id number] [place] [address] 21584- 3955 Aug, [facility] [id number] [place] [address] 14446- 4960 Aug, [facility] [id number] [place] [address] 90607- 0627 Aug, [facility] [id number] [place] [address] 48489- 1209 Aug, Visual changes H53.9 and Bilateral low back pain without sciatica M54.5 [facility] [address] 50151- 3341 Jul, [facility] [id number] [place] [address] 15178- 4369 Jun, Bipolar I disorder, most recent episode (or current) mixed, moderate 296.62 ; Generalized anxiety disorder 300.02 and High risk medication use V58.69 [facility] [address] [address]- 4057 Jun, [facility] [id number] [place] [address] 68063- 4103 May, [facility] [id number] [place] [address] 83862- 0488 May, Bipolar I disorder, most recent episode (or current) mixed, moderate 296.62 and Generalized anxiety disorder 300.02 [facility] [address] [place] [address] [id number] May, Dental examination V72.2 [facility] [id number] [place] [address] 94761- 4525 March, Bipolar I disorder, most recent episode (or current) mixed, moderate 296.62 and Generalized anxiety disorder 300.02 [facility] [id number] [place] [address] 56658- 9704 March, [facility] [id number] [place] [address] 72643- 3146 March, [facility] [id number] [place] [address] 14646- 8197 March, Underweight 783.22 ; Hand pain, right 729.5 and Reflux gastritis 535.40 [facility] [id number] [place] [address] 22039- 9583 Feb, [facility] [id number] [place] [address] 91986- 3022 Feb, [facility] [id number] [place] [address] 95407- 4808 Jan, [facility] [id number] [place] [address] [id number]- 8759 Jan, [facility] [id number] [place] [address] 09808- 3791 Jan, [facility] [place] [facility] [address] [id number] [place] [address]- 7514 16 Jan, 2014 [facility] [place] [facility] [address] [id number] [place] [address]- 8609 13 Jan, 2014 [facility] [place] [facility] [address] [id number] [place]- 9660 13 Jan, 2014 [facility] [place] [facility] [address] [id number] [place] [address]- 1475 05 Jan, 2014 [facility] [place] [facility] [address] [id number] [place] [address]- 8455 05 Jan, 2014 [facility] [place] [facility] [address] [id number] [place] [address]- 0078 04 Jan, 2014 [facility] [place] [facility] [address] [facility] [id number] [place] [address]- 6672 04 Jan, 2014 [facility] [place] [facility] [address] [facility] [id number] [place] [address]- 7536 Jan, 2014 [facility] [place] [facility] [address] [facility] [id number] [place] [address]- 2805 Jan, [facility] [place] [facility] [address] [facility] [id number] [place] [address]- 2390 Dec, 2014 [facility] [place] [facility] [address] [facility] [id number] [place] [address]- 9334 Dec, [facility] [place] [facility] [address] [facility] [id number] [place] [address]- 0773 Dec, 2014 [facility] [place] [facility] [address] [facility] [id number] [place]- 6137 Dec, 2014 [facility] [place] [facility] [address] [id number] [place] [address]- 3413 18 Dec, 2014 [facility] [place] [facility] [address] [facility] [id number] [place] [address]- 8479 17 Dec, 2014 [facility] [place] [facility] [address] [facility] [id number] [place] [address]- 0992 Dec, 2014 [facility] [place] [facility] [address] [id number] [place] [address]- 9553 Dec, 2014 [facility] [place] [facility] [address] [id number] [place]- 4696 Dec, 2014 [facility] [place] [facility] [address] [facility] [id number] [place] [address]- 4675 Dec, 2014 [facility] [place] [facility] [address] [id number] [place] [address]- 5538 Dec, 2014 [facility] [place] [facility] [address] [id number] [place] [address]- 5981 Dec, 2014 [facility] [place] [facility] [address] [facility] [id number] [place] [address]- 1006 Dec, 2014 [facility] [place] [facility] [address] [facility] [id number] [place] [address]- 9852 Dec, 2014 [facility] [place] [facility] [address] [facility] [id number] [place] [address]- 7881 Dec, 2014 [facility] [place] [facility] [address] [facility] [id number] [place] [address]- 9967 Dec, 2014 [facility] [place] [facility] [address] [facility] [id number] [place] [address]- 0674 Dec, 2014 [facility] [place] [facility] [address] [facility] [id number] [place] [address]- 4041 Dec, 2014 [facility] [place] [facility] [address] [facility] [id number] [place] [address] Dec, [facility] [place] [facility] [address] [id number] [place] [address] Nov, [facility] [place] [facility] [address] [facility] [id number] [place] [address] Nov, [facility] [place] [facility] [address] [facility] [id number] [place] [address] Nov, [facility] [place] [facility] [address] [id number] [place] [address] Nov, [facility] [place] [facility] [address] [id number] [place] [address] Nov, [facility] [place] [facility] [address] [id number] [place] [address] Nov, [facility] [place] [facility] [address] [id number] [place] [id number] Nov, [facility] [place] [facility] [address] [id number] [place] [address] Nov, [facility] [place] [facility] [address] [id number] [place] [address] Nov, [facility] [place] [facility] [address] [id number] [place] [id number] Nov, [facility] [place] [facility] [address] [id number] [place] [address] Nov, [facility] [place] [facility] [address] [id number] [place] [address] Nov, [facility] [place] [facility] [address] [id number] [place] [address] Oct, [facility] [place] [facility] [address] [id number] [place] [address] Oct, [facility] [place] [facility] [address] [id number] [place] [address] Oct, [facility] [place] [facility] [address] [id number] [place] [address] Oct, [facility] [place] [facility] [address] [id number] [place] [address] 63[address] Oct, [facility] [place] [facility] [address] [id number] [place] [address] 7[address] Oct, [facility] [place] [facility] [address] [id number], [place] [address] Oct, [facility] [place] [facility] [address] [id number] [place] [address] 2758 Oct, [facility] [place] [facility] [address] [id number] [place] [address] Oct, [facility] [place] [facility] [address] [id number] [place] [address] 9822 Oct, [facility] [place] [facility] [address] [id number] [place] [address] 9302 Oct, [facility] [place] [facility] [address] [id number] [place] [address] 8179 Oct, [facility] [place] [facility] [address] [id number] [place] [address]- 6872 Sep, [facility] [place] [facility] [address] [id number] [place] [address]- 8171 Sep, [facility] [place] [facility] [address] [id number] [place] [address]- 1818 Sep, [facility] [place] [facility] [address] [id number] [place] [address]- 7556 Sep, [facility] [place] [facility] [address] [id number] [place] [address]- 1895 Sep, [facility] [place] [facility] [address] [id number], [place] [address] Sep, [facility] [place] [facility] [address] [id number], [place] [address] Sep, [facility] [place] [facility] [address] [id number], [place] [address] 4324 Sep, [facility] [place] [facility] [address] [id number], [place] [address] 1598 Aug, [facility] [place] [facility] [address] [id number] [place] [address]- 2383 Aug, [facility] [place] [facility] [address] [id number] [place] [address]- 3[address] Aug, [facility] [place] [facility] [address] [id number] [place] [address]- 6711 Aug, [facility] [place] [facility] [address] [id number] [place] [address]- 1343 Aug, [facility] [place] [facility] [address] [id number] [place] [address]- 9471 Aug, [facility] [place] [facility] [address] [id number] [place] [address] 9157 Aug, [facility] [place] [facility] [address] [id number] [place] [address]- 0293 Aug, [facility] [place] [facility] [address] [id number] [place] [address]- 9414 Aug, [facility] [place] [facility] [address] [id number] [place] [address]- 2529 Aug, 2013 [facility] [place] [facility] [address] [id number] [place] [address]- 4037 Aug, [facility] [place] [facility] [address] [id number] [place] [address]- 7087 Aug, [facility] [place] [facility] [address] [id number] [place] [address]- 5837 Aug, [facility] [place] [facility] [address] [id number] [place] [address]- 3131 Jul, [facility] [place] [facility] [address] [id number] [place] [address]- 1006 Jul, [facility] [place] [facility] [address] [id number] [place] [address]- 5944 Jul, [facility] [place] [facility] [address] [id number] [place] [address]- 9484 Jul, [facility] [place] [facility] [address] [id number] [place] [address]- 2173 Jun, [facility] [place] [facility] [address] [id number] [place] [address]- 5991 Jun, [facility] [place] [facility] [address] [id number] [place] [address]- 3252 Jun, [facility] [place] [facility] [address] [id number] [place] [address]- 0280 Jun, [facility] [place] [facility] [address] [id number] [place] [address]- 1395 Jun, [facility] [place] [facility] [address] [id number] [place] [address]- 4948 Jun, [facility] [place] [facility] [address] [id number] [place] [address]- 9633 May, [facility] [place] [facility] [address] [id number] [place] [address]- 7946 May, [facility] [place] [facility] [address] [id number] [place] [address]- 2326 May, [facility] [place] [facility] [address] [id number] [place] [address]- 0918 May, [facility] [place] [facility] [address] [id number] [place] [address]- 5698 Apr, [facility] [place] [facility] [address] [id number] [place] [address]- 1437 Apr, [facility] [place] [facility] [address] [id number] [place] [address]- 4306 March, [facility] [place] [facility] [address] [id number] [place] [address]- 5668 March, [facility] [place] [facility] [address] [id number] [place] [address]- 3176 March, [facility] [place] [facility] [address] [id number] [place] [address]- 5673 March, [facility] [place] [facility] [address] [id number] [place] [address]- 1915 March, [facility] [place] [facility] [address] [id number] [place] [address]- 7993 March, [facility] [place] [facility] [address] [id number] [place] [address]- 4566 Feb, [facility] [place] [facility] [address] [id number] [place] [address]- 4766 Feb, [facility] [place] [facility] [address] [id number] [place] [address]- 4425 Dec, [facility] [place] [facility] [address] [id number] [place] [address]- 2498 Dec, [facility] [place] [facility] [address] [id number] [place] [address]- 2983 Nov, [facility] [place] [facility] [address] [id number] [place] [address]- 9602 Nov, [facility] [place] [facility] [address] [id number] [place] [address]- 0066 Sep, [facility] [place] [facility] [address] [id number] [place] [address]- 4932 Sep, [facility] [place] [facility] [address] [id number] [place] [address]- 1832 Sep, [facility] [place] [facility] [address] [id number] [place] [address]- 6293 Sep, [facility] [place] [facility] [address] [id number] [place] [address]- 4190 Sep, [facility] [place] [facility] [address] [id number] [place] [address]- 4226 Sep, [facility] [place] [facility] [address] [id number] [place] [address]- 5461 Sep, [facility] [place] [facility] [address] [id number] [place] [address]- 0007 Aug, [facility] [place] [facility] [address] [id number] [place] [address]- 9320 Aug, [facility] [place] [facility] [address] [id number] [place] [address]- 1530 Aug, [facility] [place] [facility] [address] [id number] [place] [address]- 6814 Aug, [facility] [place] [facility] [address] [id number] [place] [address]- 3533 Aug, [facility] [place] [facility] [address] [id number] [place] [address]- 7882 Aug, [facility] [place] [facility] [address] [id number] [place] [address]- 0236 Jul, [facility] [place] [facility] [address] [id number] [place] [address]- 3964 Jul, [facility] [place] [facility] [address] [id number] [place] [address]- 4274 16 Jul, 2013 [facility] [place] [facility] [address] [id number] [place] [address]- 2234 Jul, [facility] [place] [facility] [address] [id number] [place] [address]- 2783 Jun, [facility] [place] [facility] [address] [id number] [place] [address]- 4056 Jun, [facility] [place] [facility] [address] [id number] [place] [address]- 8101 Jun, [facility] [place] [facility] [address] [id number] [place] [address]- 8750 Jun, [facility] [place] [facility] [address] [id number] [place] [address]- 8850 Jun, [facility] [place] [facility] [address] [id number] [place] [address]- 3180 Jun, [facility] [place] [facility] [address] [id number] [place] [address]- 2683 Jun, [facility] [place] [facility] [address] [id number] [place] [address]- 0797 May, [facility] [place] [facility] [address] [id number] [place] [address]- 4280 May, [facility] [place] [facility] [address] [id number] [place] [address]- 1526 16 May, 2013 [facility] [place] [facility] [address] [id number] [place] [address]- 9083 15 May, 2013 [facility] [place] [facility] [address] [id number] [place] [address]- 7227 May, [facility] [place] [facility] [address] [id number] [place] [address]- 5049 May, [facility] [place] [facility] [address] [id number] [place] [address]- 2757 May, [facility] [place] [facility] [address] [id number] [place] [address]- 5225 Apr, [facility] [place] [facility] [address] [id number] [place] [address]- 4045 Apr, [facility] [place] [facility] [address] [id number] [place] [address]- 5395 Apr, [facility] [place] [facility] [address] [id number] [place] [address]- 2422 Apr, [facility] [place] [facility] [address] [id number] [place] [address]- 6473 Apr, [facility] [place] [facility] [address] [id number] [place] [address]- 2571 Apr, [facility] [place] [facility] [address] [id number] [place] [address]- 1819 Apr, [facility] [place] [facility] [address] [id number] [place] [address]- 8270 Apr, [facility] [place] [facility] [address] [id number] [place] [address]- 4020 17 Apr, 2013 [facility] [address] [id number] [place] [address]- 2380 14 Apr, 2013 [facility] [place] [facility] [address] [id number] [place] [address]- 5166 14 Apr, 2013 [facility] [address] [id number] [place] [address]- 4629 11 Apr, 2013 [facility] [address] [id number] [place] [address]- 2739 10 Apr, 2013 [facility] [address] [id number] [place] [address]- 5780 09 Apr, 2013 [facility] [address] [id number] [place] [address]- 8696 07 Apr, 2013 [facility] [address] [id number] [place] [address]- 1004 06 Apr, 2013 [facility] [address] [id number] [place] [address]- 7642 06 Apr, 2013 [facility] [address] [id number] [place] [address]- 1221 05 Apr, 2013 [facility] [address] [id number] [place] [address]- 1254 Apr, [facility] [address] [id number] [place] [address]- 0770 March, [facility] [address] [id number] [place] [address]- 2950 March, [facility] [place] [facility] [address] [id number] [place] [address]- 1180 March, [facility] [place] [facility] [address] [id number] [place] [address]- 4642 March, [facility] [address] [id number] [place] [address]- 6265 March, [facility] [address] [id number] [place] [address]- 4931 March, [facility] [address] [id number] [place] [address]- 7763 March, [facility] [address] [id number] [place] [address]- 1942 Feb, [facility] [place] [facility] [address] [id number] [place] [address]- 7131 Feb, [facility] [address] [id number] [place] [address]- 3360 27 Jan, 2013 [facility] [place] [facility] [address] [id number] [place] [address]- 5725 18 Jan, 2013 [facility] [address] [id number] [place] [address]- 2214 15 Jan, 2013 [facility] [address] [id number] [place] [address]- 7902 14 Jan, 2013 [facility] [place] [facility] [address] [id number] [place] [address]- 5598 Jan, [facility] [place] [facility] [address] [id number], [place] [address]- 2476 Jan, [facility] [place] [facility] [address] [id number] [place] [address]- 7125 Jan, [facility] [place] [facility] [address] [id number], [place] [address]- 5634 09 Jan, 2013 [facility] [place] [facility] [address] [id number] [place] [address]- 8128 08 Jan, 2013 [facility] [place] [facility] [address] [id number] [place] [address]- 1688 07 Jan, 2013 [facility] [place] [facility] [address] [id number][place] 6050 06 Jan, 2013 [facility] [place] [facility] [address] [id number], [place] [address]- 7718 Nov, [facility] [place] [facility] [address] [id number] [place] [address]- 1193 Oct, [facility] [place] [facility] [address] [id number] [place] [address]- 8648 Oct, [facility] [place] [facility] [address] [facility] [id number] [place] [address]- 5435 Oct, [facility] [place] [facility] [address] [id number] [place] [address]- 9688 Oct, [facility] [place] [facility] [address] [facility] [id number] [place] [address]- 7989 Sep, [facility] [place] [facility] [address] [id number] [place] [address]- 6015 Sep, [facility] [place] [facility] [id number], [place] [address]- 6087 Sep, [facility] [place] [facility] [address] [id number] [place] [address]- 1047 Sep, [facility] [place] [facility] [address] [facility] [id number] [place] [address]- 2189 Sep, [facility] [place] [facility] [address] [facility] [id number] [place] [address]- 3007 Sep, [facility] [place] [facility] [address] [id number], [place] [address]- 0039 Sep, [facility] [place] [facility] [address] [id number], [place] [address]- 8514 Sep, [facility] [place] [facility] [address] [id number], [place] [address]- 7303 Sep, [facility] [place] [facility] [address] [facility] [id number], [place] [address]- 1262 Sep, [facility] [place] [facility] [address] [id number], [place] [address]- 6875 Sep, [facility] [place] [facility] [address] [id number] [place] [address]- 3865 Aug, [facility] [place] [facility] [address] [id number] [place] [address] Aug, [facility] [place] [facility] [address] [id number] [place] [address]- 3306 Aug, [facility] [place] [facility] [address] [id number] [place] [address]- 6486 28 Jul, 2012 [facility] [place] [facility] [address] [id number] [place] [address]- 8700 25 Jul, 2012 [facility] [place] [facility] [address] [id number] [place] [address]- 7650 19 Jul, 2012 [facility] [place] [facility] [address] [id number] [place] [address]- 4601 17 Jul, 2012 [facility] [place] [facility] [address] [id number] [place] [address]- 9458 20 Jun, 2012 [facility] [place] [facility] [address] [id number] [place] [address]- 6892 16 Jun, 2012 [facility] [place] [facility] [address] [id number] [place] [address]- 8476 15 Jun, 2012 [facility] [place] [facility] [address] [id number] [place] [address]- 5065 15 Jun, 2012 [facility] [place] [facility] [address] [id number] [place] [address]- 1622 Jun, [facility] [place] [facility] [address] [id number] [place] [address]- 8706 March, [facility] [place] [facility] [address] [id number] [place] [address]- 2485 Feb, [facility] [place] [facility] [address] [id number] [place] [address]- 9904 Jan, [facility] [place] [facility] [address] [id number] [place] [address]- 4398 27 Jan, 2012 [facility] [place] [facility] [address] [id number] [place] [address]- 0713 22 Jan, 2012 [facility] [place] [facility] [address] [id number] [place] [address]- 8236 14 Jan, 2012 [facility] [place] [facility] [address] [id number] [place] [address]- 3076 14 Jan, 2012 [facility] [place] [facility] [address] [id number] [place] [address]- 5536 14 Jan, 2012 [facility] [place] [facility] [address] [id number] [place] [address]- 4823 28 Dec, 2011 [facility] [place] [facility] [address] [id number] [place] [address]- 4267 27 Dec, 2011 [facility] [place] [facility] [address] [id number] [place] [address]- 8513 23 Dec, 2011 [facility] [place] [facility] [address] [id number] [place] [address]- 7105 21 Dec, 2011 [facility] [place] [facility] [address] [id number] [place] [address]- 4169 20 Dec, 2011 [facility] [place] [facility] [address] [id number] [place] [address]- 9911 19 Dec, 2011 [facility] [place] [facility] [address] [id number] [place] [address]- 8318 17 Dec, 2011 [facility] [place] [facility] [address] [id number] [place] [address]- 5342 16 Dec, 2011 [facility] [place] [facility] [address] [id number] [place] [address]- 9550 31 Nov, 2011 [facility] [place] [facility] [address] [id number] [place] [address]- 1771 13 Oct, 2011 [facility] [place] [facility] [address] [facility] [id number] [place] [address]- 5530 18 Sep, 2011 [facility] [place] [facility] [address] [facility] [id number], [place] [address]- 8087 Sep, [facility] [address] [id number], [place] [address]- 1681 Sep, [facility] [address] [id number], [place] [address]- 1085 Sep, [facility] [address] [id number], [place] [address]- 3462 Sep, [facility] [address] [facility] [id number], [place] [address]- 8956 Sep, [facility] [address] [id number], [place] [address]- 0844 Jan, [facility] [address] [facility] [id number], [place] [address]- 1687 Apr, IMMUNIZATIONS No Known Immunizations SOCIAL HISTORY Never Assessed REASON FOR VISIT nati PLAN OF CARE Activity Details Follow Up 2 Weeks Reason:EXT # 31 45min needed VITAL SIGNS MEDICATIONS Medication Instructions Dosage Frequency Start Date End Date Duration Status Ibuprofen 800 MG Orally Three times a day 1 tablet with food or milk as needed 8h March, Active Klonopin 0.5 MG Orally 4 times a day as needed 1 tablet Aug, 30 days Active Lamictal 200 mg Orally Once a day 1 tablet 24h Feb, Active Oxycodone-Acetaminophen 10-325 MG Orally every 4 hrs 1 tablet as needed 4h Not-Taking Clindamycin HCl 300 MG Orally every 6 hrs 1 capsule 6h 10 days Active Remeron 45 MG Orally Once a day at bedtime 1 tablet March, Active Abilify 15 mg Orally Once a day 1/2 tablet 24h Feb, Active RESULTS No Results PROCEDURES Procedure Date Ordered Result Body Site LTD ORAL EVALUATION - PROBLEM FOCUS April 27, 2018 INSTRUCTIONS MEDICATIONS ADMINISTERED No Known Medications MEDICAL (GENERAL) HISTORY Type Description Date Medical History bipolar disorder Medical History PTSD Medical History endometriosis Medical History PCOS (Polycystic Ovary Syndrome) Medical History Seizures Medical History Endometriosis Medical History History of Self Harm Surgical History laparoscopy for endometriosis 2008 Surgical History tonsillectomy Surgical History partial hysterectomy 12/2016 Surgical History Left ovary removed 12/2016 Hospitalization History [facility] Admission x4 2009 most recent admission Hospitalization History [facility]; overdose 2011 Hospitalization History child 11/29/2016
--- OUTSIDE RECORDS SUMMARY | 2018-08-05 20:21 | XMS REPORT ---
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 Name Role Phone MACARIO FERRARO Unavailable PROBLEMS Type Condition ICD9-CM Code [id number] Code Onset Dates Condition Status SNOMED Code Problem Generalized anxiety disorder F41.1 Active 76460057 Problem Acute non intractable tension-type headache G44.209 Active 143075846 Problem Acute right-sided low back pain with right-sided sciatica M54.41 Active 681862066 Problem Post traumatic stress disorder F43.10 Active 79656532 Problem Bipolar disorder, current episode mixed, moderate F31.62 Active 585075469 Problem Endometriosis N80.9 Active 543256594 Problem Borderline personality disorder F60.3 Active 62883603 ALLERGIES Substance Reaction Event Type Date Status Thioridazine HCl tachycardia Drug Allergy Apr, Active Pristiq Unknown Drug Allergy Apr, Active Penicillin V Potassium rash Drug Allergy Apr, Active Diclofenac Sodium nausea Drug Allergy Apr, Active Depakote fatigue Drug Allergy Apr, Active ENCOUNTERS Encounter Location Date Diagnosis [facility] [id number] [address] Jul, [facility] [id number] [id number] Jun, [facility] [id number] [address] Jun, Bipolar disorder, current episode mixed, moderate F31.62 [facility] [id number] [place] [address] 69688- 0419 May, Palpitations R00.2 [facility] [id number] [address] May, Palpitations R00.2 [facility] [id number] [place] [address] 32892- 4836 12 May, 2018 Palpitations R00.2 and Frequent bowel movements R19.4 [facility] [id number] [place] [address] 80124- 1915 05 May, 2018 Bipolar disorder, current episode mixed, moderate F31.62 ; Post traumatic stress disorder F43.10 and Borderline personality disorder F60.3 [facility] [id number] [place] [address] [phone] 15 Apr, 2018 Dental examination Z01.20 [facility] [address] [address] -[address] 15 Apr, 2018 [facility] [id number] [place] [address] 54226 -2092 15 Apr, 2018 Tooth pain K08.89 [facility] [id number] [place] [address] 99211- 1601 15 Apr, 2018 Dental examination Z01.20 [facility] [id number] [place] [address] 17450- 7364 06 Apr, 2018 Bipolar disorder, current episode mixed, moderate F31.62 ; Post traumatic stress disorder F43.10 and Borderline personality disorder F60.3 [facility] [id number] [place] [address] 73750 -2123 March, Abdominal pain R10.9 ; UTI symptoms R39.9 and Other microscopic hematuria R31.29 [facility] [id number] [place] [address] 17187- 2486 March, [place] [address] [address]- [address] March, Bipolar disorder, current episode mixed, moderate F31.62 ; Post traumatic stress disorder F43.10 and Borderline personality disorder F60.3 [facility] [id number] [place] [address] 27420- 2467 Feb, Encounter for immunization Z23 [facility] [id number] [place] [address] 30815- 3104 16 Feb, 2018 Bipolar disorder, current episode mixed, moderate F31.62 ; Post traumatic stress disorder F43.10 and Borderline personality disorder F60.3 [facility] [id number] [place] [address] 24275- 4612 11 Feb, 2018 Bipolar disorder, current episode mixed, moderate F31.62 ; Post traumatic stress disorder F43.10 ; Borderline personality disorder F60.3 and 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.899 [address] 15716- 1211 30 Jan, 2018 Encounter for immunization Z23 [facility] [id number] [place] [address] 31099- 5074 30 Jan, 2018 [place] [address] 87035- 4144 Jan, Bipolar disorder, current episode mixed, moderate F31.62 [facility] [id number] [place] [address] 19250 -2293 Jan, Lumbar back pain M54.5 [place] [id number] [place] [address] 21805- 2847 28 Dec, 2017 Low back pain M54.5 [facility] [id number] [place] [address] 96770- 0558 13 Dec, 2017 Bipolar disorder, current episode mixed, moderate F31.62 [facility] [id number] [place] [address] 03570- 6484 Dec, Generalized anxiety disorder F41.1 and Bipolar disorder, current episode mixed, moderate F31.62 [facility] [id number] [place] [address] 66222 -7881 Nov, Acute non intractable tension-type headache G44.209 [place] [address] 02211- 7800 Nov, Bipolar disorder, current episode mixed, moderate F31.62 ; Post traumatic stress disorder F43.10 and Borderline personality disorder F60.3 [place] [id number] [place] [address] Nov, Bipolar disorder, current episode mixed, moderate F31.62 [facility] [id number] [place] [address] 66007 -4171 Nov, Abdominal pain R10.9 ; History of PCOS Z87.42 ; History of endometriosis Z87.42 and Pelvic pain R10.2 [place] [address] 01448- 2461 Nov, [facility] [place] [address] 54224 -1825 Oct, History of PCOS Z87.42 ; History of endometriosis Z87.42 and Pain R52 [place] [address] 96541- 6106 Oct, Bipolar disorder, current episode mixed, moderate F31.62 ; Post traumatic stress disorder F43.10 and Borderline personality disorder F60.3 [place] [id number] [place] [address] 18119- 5734 Oct, Bipolar disorder, current episode mixed, moderate F31.62 [place] [id number] [place] [address] 30234- 2663 Sep, Bipolar disorder, current episode mixed, moderate F31.62 ; Post traumatic stress disorder F43.10 ; Borderline personality disorder F60.3 and 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 [place] [address] 08475- 7504 Sep, Bipolar disorder, current episode mixed, moderate F31.62 [facility] [id number] [place] [address] 28523 -6112 Sep, Endometriosis N80.9 and Acute right-sided low back pain with right-sided sciatica M54.41 [facility] [address], [place] [address] 9[address] Aug, [facility] [id number] [place] [address] 69206- 2086 Aug, Bipolar disorder, current episode mixed, moderate F31.62 ; Post traumatic stress disorder F43.10 and Borderline personality disorder F60.3 [place] [id number] [place] [address] 26604- 9392 Aug, Bipolar disorder, current episode mixed, moderate F31.62 ; Post traumatic stress disorder F43.10 and Borderline personality disorder F60.3 [place] [id number] [place] [address] 43362- 4883 13 Jul, 2017 Bipolar disorder, current episode mixed, moderate F31.62 ; Post traumatic stress disorder F43.10 and Borderline personality disorder F60.3 [facility] [id number] [place] [address] 64425 -3025 11 Jul, 2017 Pharyngitis, unspecified etiology J02.9 and Streptococcal pharyngitis J02.0 [place] [address] [place] [address] 91466- 6929 16 Jun, 2017 Bipolar disorder, current episode mixed, moderate F31.62 ; Post traumatic stress disorder F43.10 and Borderline personality disorder F60.3 [place] [id number] [place] [address] 36168- 4953 May, [place] [id number] [place] [address] 53043- 1300 May, [facility] [address] [place] [address] 94207- 2393 May, Bipolar disorder, current episode mixed, moderate F31.62 and Generalized anxiety disorder F41.1 [place] [address] [place] [address] 13996- 2115 March, Bipolar disorder, current episode mixed, moderate F31.62 and Generalized anxiety disorder F41.1 [facility] [address], [place] [address] 5510 March, Pelvic pain R10.2 [facility] [id number] [place] [address] March, [facility] [id number] [place] [address] 47307- 9511 Feb, Bipolar disorder, current episode mixed, moderate F31.62 and Generalized anxiety disorder F41.1 [facility] [id number] [place] [address] 95491- 9058 Jan, [facility] [id number] [place] [address] 27892- 5945 Jan, Bipolar disorder, current episode mixed, moderate F31.62 [facility] [id number] [place] [address] 63754- 8955 Jan, Bipolar disorder, current episode mixed, moderate F31.62 [facility] [id number] [place] [address] 97430- 7030 Jan, Bilateral low back pain without sciatica M54.5 [facility] [id number] [place] [address] [phone] Jan, Dental caries K02.9 and Dental examination Z01.20 [facility] [address] [place] [address] [phone] Jan, Encounter for dental examination and cleaning without abnormal findings Z01.20 [facility] [address] [place] [address] 38911- 6875 Jan, Bipolar disorder, current episode mixed, moderate F31.62 and Generalized anxiety disorder F41.1 [facility] [id number] [place] [address] 00034- 0272 Dec, [facility] [id number] [place] [address] 52115- 3486 Dec, Bipolar disorder, current episode mixed, moderate F31.62 and Generalized anxiety disorder F41.1 [facility] [address] [place] [address] 15902- 6762 03 Dec, 2016 Other fatigue R53.83 and Orthostatic hypotension I95.1 [facility] [address] [id number] Nov, Dental examination Z01.20 [facility] [id number] [place] [address] 78213 -3596 Nov, Bronchitis J40 [place] [id number] [place] [address] 36231- 5573 Oct, Generalized anxiety disorder F41.1 [place] [id number] [place] [address] 27655- 4993 Sep, Bipolar disorder, current episode mixed, moderate F31.62 and Generalized anxiety disorder F41.1 [place] [id number] [place] [address] 26859- 7905 Sep, Bipolar disorder, current episode mixed, moderate F31.62 and Generalized anxiety disorder F41.1 [facility] [id number] [place] [address] 61913 -2290 08 Jul, 2016 Upper respiratory tract infection, unspecified type J06.9 [place] [id number] [place] [address] 20345- 4454 Jun, Bipolar disorder, current episode mixed, moderate F31.62 and Generalized anxiety disorder F41.1 [facility] [id number] [place] [address] 32871- 7141 Apr, [place] [address] 04766- 7957 Apr, Encounter for test, result positive Z32.01 [facility] [id number] [place] [address] 64503- 7335 March, [facility] [address] 38172- 7563 March, Bipolar disorder, current episode mixed, moderate F31.62 and Generalized anxiety disorder F41.1 [facility] [address] [place] [address] 60496- 7562 March, Bipolar disorder, current episode mixed, moderate F31.62 and Generalized anxiety disorder F41.1 [facility] [address] [place] [address] 25755- 4678 March, [facility] [id number] [place] [address] 93828- 5893 March, [facility] [id number] [place] [address] 53510- 5965 Feb, [facility] [id number] [place] [address] 21759- 8226 Feb, [facility] [id number] [place] [address] 13763- 6355 Feb, Bipolar disorder, current episode mixed, moderate F31.62 and Generalized anxiety disorder F41.1 [facility] [id number] [place] [address] 85780- 4653 Jan, Abdominal pain R10.9 [facility] [address] [place] [address] 34415- 9419 14 Jan, 2016 [facility] [address] [place] [address] 33209- 9759 29 Dec, 2015 Dental examination Z01.20 [facility] [address] [place] [address] 91744- 0387 22 Dec, 2015 Dental examination Z01.20 and Dental caries K02.9 [facility] [address] [place] [address] 31238- 9759 15 Dec, 2015 Bipolar disorder, current episode mixed, moderate F31.62 and Generalized anxiety disorder F41.1 [facility] [address] [place] [address] 03991- 0666 Dec, [facility] [address] [place] [address] 59717- 2564 Nov, Bipolar disorder, current episode mixed, moderate F31.62 ; Generalized anxiety disorder F41.1 and Seizure-like activity R56.9 [place] [address] [place] [address] 86213- 8533 Oct, [place] [id number] [place] [address] 24126- 4641 Oct, Bipolar disorder, current episode mixed, moderate F31.62 [place] [id number] [place] [address] 48826- 2628 Oct, Well woman exam Z01.419 ; Encounter [...] Tobacco use Z72.0 and Hot flashes N95.1 [place] [id number] [place] [address] 96913- 3220 09 Oct, 2015 Seizure-like activity R56.9 and Irregular periods N92.6 [place] [id number] [place] [address] 67687- 8683 Oct, Bipolar disorder, current episode mixed, moderate F31.62 ; Generalized anxiety disorder F41.1 and Underweight R63.6 [place] [id number] [place] [address] 30736- 7136 Oct, [place] [id number] [place] [address] 76192- 1917 Oct, Generalized anxiety disorder F41.1 and Unspecified mood [ affective] disorder F39 [facility] [id number] [place] [address] 13582 -3785 Oct, Back pain M54.9 and Anxiety F41.9 [facility] [address] 46053- 5280 Oct, [facility] [id number] [place] [address] 14769 -5183 Sep, Arm pain, left M79.602 [facility] [address] 33089- 2033 Sep, [facility] [address] [id number] Sep, Dental examination Z01.20 and Dental caries K02.9 [facility] [id number] [place] [address] 11851- 4711 Sep, Generalized anxiety disorder F41.1 and Unspecified episodic mood disorder F39 [facility] [id number] [place] [address] 76722- 7289 Sep, Bilateral low back pain without sciatica M54.5 and Seizure- like activity R56.9 [facility] [id number] [place] [address] 17954- 4281 Aug, [facility] [id number] [place] [address] 54584- 8885 Aug, [facility] [id number] [place] [address] 18300- 1371 Aug, [facility] [id number] [place] [address] 23140- 9734 Aug, Visual changes H53.9 and Bilateral low back pain without sciatica M54.5 [facility] [id number] [place] [address] 83306- 6977 Jul, [facility] [address] 82254- 3214 Jun, Bipolar I disorder, most recent episode (or current) mixed, moderate 296.62 ; Generalized anxiety disorder 300.02 and High risk medication use V58.69 [facility] [address] [place] [address] 65397- 5189 Jun, [facility] [id number] [place] [address] 64799- 4563 May, [facility] [id number] [place] [address] 21904- 6337 May, Bipolar I disorder, most recent episode (or current) mixed, moderate 296.62 and Generalized anxiety disorder 300.02 [facility] [id number] [place] [address] [id number] May, Dental examination V72.2 [facility] [id number] [place] [address] 10265- 6547 March, Bipolar I disorder, most recent episode (or current) mixed, moderate 296.62 and Generalized anxiety disorder 300.02 [facility] [id number] [place] [address] 04656- 8656 March, [facility] [id number] [place] [address] 08313- 3788 March, [facility] [id number] [place] [address] 95542- 1566 March, Underweight 783.22 ; Hand pain, right 729.5 and Reflux gastritis 535.40 [facility] [id number] [place] [address] 70409- 3087 Feb, [facility] [id number] [place] [address] 28675- 1839 Feb, [facility] [id number] [place] [address] 16323- 5210 Jan, [facility] [id number] [place] [address] 32114- 6081 Jan, [facility] [id number] [place] [address] 21010- 2134 16 Jan, 2015 [facility] [place] [facility] [address] [id number] [place] [address]- 9270 16 Jan, 2015 [facility] [place] [facility] [address] [id number] [place] [address]- 8046 Jan, [facility] [place] [facility] [address] [facility] [id number] [place] [address]- 2106 Jan, [facility] [place] [facility] [address] [facility] [id number] [place] [address]- 3985 05 Jan, 2015 [facility] [place] [facility] [address] [id number] [place] [address]- 0644 05 Jan, 2015 [facility] [place] [facility] [address] [facility] [id number] [place] [address]- 5373 Jan, [facility] [place] [facility] [address] [facility] [id number] [place] [address]- 8281 Jan, [facility] [place] [facility] [address] [facility] [id number] [place] [address]- 6214 Jan, [facility] [place] [facility] [address] [facility] [id number] [place] [address]- 7738 Jan, [facility] [place] [facility] [address] [facility] [id number] [place] [address]- 2459 20 Dec, 2014 [facility] [place] [facility] [address] [facility] [id number] [place] [address]- 6357 20 Dec, 2014 [facility] [place] [facility] [address] [facility] [id number] [address]- 6199 Dec, 2014 [facility] [place] [facility] [address] [id number] [place] [address]- 2347 Dec, 2014 [facility] [place] [facility] [address] [facility] [id number], [place] [address]- 5697 18 Dec, 2014 [facility] [place] [facility] [address] [facility] [id number], [place] [address]- 0097 Dec, 2014 [facility] [place] [facility] [address] [id number] [place] [address]- 2929 Dec, 2014 [facility] [place] [facility] [address] [id number] [place] [address]- 3862 Dec, 2014 [facility] [place] [facility] [address] [id number] [place] [address]- 9628 Dec, 2014 [facility] [place] [facility] [address] [id number] [place] [address]- 0875 Dec, 2014 [facility] [place] [facility] [address] [id number] [place] [address]- 8687 Dec, 2014 [facility] [place] [facility] [address] [id number] [place] [address]- 7798 Dec, 2014 [facility] [place] [facility] [address] [id number] [place] [address]- 9960 Dec, 2014 [facility] [place] [facility] [address] [id number] [place] [address] Dec, 2014 [facility] [place] [facility] [address] [id number] [place] [address] Dec, 2014 [facility] [place] [facility] [address] [id number] [place] [address] Dec, 2014 [facility] [place] [facility] [address] [facility] [id number] [place] [address] Dec, 2014 [facility] [place] [facility] [address] [id number] [place] [address] Dec, 2014 [facility] [place] [facility] [address] [id number] [place] [address] Dec, 2014 [facility] [place] [facility] [address] [id number] [place] [address] Nov, [facility] [place] [facility] [address] [facility] [id number] [place] [address] Nov, [facility] [place] [facility] [address] [id number] [place] [address] Nov, [facility] [address] [id number] [place] [address] Nov, [facility] [address] [id number] [place] [address] Nov, [facility] [address] [id number] [place] [address] Nov, [facility] [address] [id number] [place] [id number] Nov, [facility] [place] [facility] [address] [id number] [place] [address] Nov, [facility] [address] [id number] [place] [address] Nov, [facility] [address] [id number] [place] [id number] Nov, [facility] [address] [id number] [place] [address] Nov, [facility] [place] [facility] [address] [id number] [place] [address] Nov, [facility] [address] [id number] [place] [address] Oct, [facility] [facility] [place] [facility] [address] [id number] [place] [address] Oct, [facility] [place] [facility] [address] [id number] [place] [address] 6196 Oct, [facility] [place] [facility] [address] [id number] [place] [address] 5346 Oct, [facility] [place] [facility] [address] [id number] [place] [address] 6366 Oct, [facility] [place] [facility] [address] [id number] [place] [address] 4097 Oct, [facility] [place] [facility] [address] [id number] [place] [address]- 8633 Oct, [facility] [place] [facility] [address] [id number] [place] [address]- 1661 Oct, [facility] [place] [facility] [address] [id number] [place] [address] Oct, [facility] [place] [facility] [address] [id number] [place] [address]- 2295 Oct, [facility] [place] [facility] [address] [id number] [place] [address]- 9611 Oct, [facility] [place] [facility] [address] [id number] [place] [address]- 9455 Oct, [facility] [place] [facility] [address] [id number] [place] [address] 8081 Sep, [facility] [place] [facility] [address] [id number] [place] [address]- 7212 Sep, [facility] [place] [facility] [address] [id number] [place] [address]- 6548 Sep, [facility] [place] [facility] [address] [id number] [place] [address]- 1255 Sep, [facility] [place] [facility] [address] [id number] [place] [address]- 0223 Sep, [facility] [place] [facility] [address] [id number], [place] [address] 2297 Sep, [facility] [place] [facility] [address] [id number] [place] [address]- 7967 Sep, [facility] [place] [facility] [address] [id number] [place] [address]- 5433 Sep, [facility] [place] [facility] [address] [id number] [place] [address] Aug, [facility] [place] [facility] [address] [id number], [place] [address] 3183 Aug, [facility] [place] [facility] [address] [id number] [place] [address]- 2057 Aug, [facility] [place] [facility] [address] [id number] [place] [address]- 0947 Aug, [facility] [place] [facility] [address] [id number] [place] [address]- 2304 Aug, [facility] [place] [facility] [address] [id number] [place] [address]- 7131 10 Aug, 2014 [facility] [place] [facility] [address] [id number] [place] [address]- 3813 08 Aug, 2014 [facility] [place] [facility] [address] [id number] [place] [address]- 4059 08 Aug, 2014 [facility] [place] [facility] [address] [id number] [place] [address]- 5797 Aug, [facility] [place] [facility] [address] [id number] [place] [address]- 4436 Aug, [facility] [place] [facility] [address] [id number] [place] [address]- 0057 Aug, [facility] [place] [facility] [address] [id number] [place] [address]- 2994 Aug, [facility] [place] [facility] [address] [id number], [place] [address] 3163 Aug, [facility] [place] [facility] [address] [id number], [place] [address]- 5014 22 Jul, 2014 [facility] [place] [facility] [address] [id number] [place] [address]- 0470 22 Jul, 2014 [facility] [place] [facility] [address] [id number] [place] [address]- 1014 19 Jul, 2013 [facility] [place] [facility] [address] [id number] [place] [address]- 4709 19 Jul, 2013 [facility] [place] [facility] [address] [id number] [place] [address] 1947 Jun, [facility] [place] [facility] [address] [id number] [place] [address]- 5507 Jun, [facility] [place] [facility] [address] [id number] [place] [address]- 5583 Jun, [facility] [place] [facility] [address] [id number] [place] [address]- 1412 Jun, [facility] [place] [facility] [address] [id number] [place] [address]- 9982 Jun, [facility] [place] [facility] [address] [id number] [place] [address]- 2541 Jun, [facility] [place] [facility] [address] [id number] [place] [address]- 5748 May, [facility] [place] [facility] [address] [id number] [place] [address]- 0626 May, [facility] [place] [facility] [address] [id number] [place] [address]- 3950 May, [facility] [place] [facility] [address] [id number] [place] [address]- 6362 May, [facility] [place] [facility] [address] [id number] [place] [address]- 9435 Apr, [facility] [place] [facility] [address] [id number] [place] [address]- 7654 Apr, [facility] [place] [facility] [address] [id number] [place] [address]- 3738 March, [facility] [place] [facility] [address] [id number] [place] [address]- 0515 March, [facility] [place] [facility] [address] [id number] [place] [address]- 4121 March, [facility] [place] [facility] [address] [id number] [place] [address]- 0930 March, [facility] [place] [facility] [address] [id number] [place] [address]- 4523 March, [facility] [place] [facility] [address] [id number] [place] [address]- 1836 March, [facility] [place] [facility] [address] [id number] [place] [address]- 7661 Feb, [facility] [place] [facility] [address] [id number] [place] [address]- 2340 Feb, [facility] [place] [facility] [address] [id number] [place] [address]- 7980 Dec, [facility] [place] [facility] [address] [id number] [place] [address]- 5523 Dec, [facility] [place] [facility] [address] [id number] [place] [address]- 2200 Nov, [facility] [place] [facility] [address] [id number] [place] [address]- 3013 Nov, [facility] [place] [facility] [address] [id number] [place] [address]- 6939 Sep, [facility] [place] [facility] [address] [id number] [place] [address]- 2424 Sep, [facility] [place] [facility] [address] [id number] [place] [address]- 9574 Sep, [facility] [place] [facility] [address] [id number], [place] [address]- 4092 Sep, [facility] [place] [facility] [address] [id number] [place] [address]- 7709 Sep, [facility] [place] [facility] [address] [id number] [place] [address]- 8508 Sep, [facility] [place] [facility] [address] [id number] [place] [address]- 1880 Sep, [facility] [place] [facility] [address] [id number] [place] [address]- 6498 30 Aug, 2013 [facility] [place] [facility] [address] [id number] [place] [address]- 3575 30 Aug, 2013 [facility] [place] [facility] [address] [id number] [place] [address]- 4445 Aug, [facility] [place] [facility] [address] [id number] [place] [address]- 1129 Aug, [facility] [place] [facility] [address] [id number] [place] [address]- 6669 Aug, [facility] [place] [facility] [address] [id number] [place] [address]- 7560 Aug, [facility] [place] [facility] [address] [id number] [place] [address]- 5128 Jul, [facility] [place] [facility] [address] [id number] [place] [address]- 5162 Jul, [facility] [place] [facility] [address] [id number] [place] [address]- 6195 16 Jul, 2013 [facility] [place] [facility] [address] [id number] [place] [address]- 0207 Jul, [facility] [place] [facility] [address] [id number] [place] [address]- 7474 Jun, [facility] [place] [facility] [address] [id number] [place] [address]- 5043 Jun, [facility] [place] [facility] [address] [id number] [place] [address]- 7403 Jun, [facility] [place] [facility] [address] [id number] [place] [address]- 7282 Jun, [facility] [place] [facility] [address] [id number] [place] [address]- 7331 Jun, [facility] [place] [facility] [address] [id number] [place] [address]- 9630 Jun, [facility] [place] [facility] [address] [id number] [place] [address]- 1000 Jun, [facility] [place] [facility] [address] [id number] [place] [address]- 1051 May, [facility] [place] [facility] [address] [id number] [place] [address]- 5947 May, [facility] [place] [facility] [address] [id number] [place] [address]- 9065 May, [facility] [place] [facility] [address] [id number] [place] [address]- 9006 May, [facility] [place] [facility] [address] [id number] [place] [address]- 3677 May, [facility] [place] [facility] [address] [id number] [place] [address]- 3960 May, [facility] [place] [facility] [address] [id number] [place] [address]- 1613 May, [facility] [place] [facility] [address] [id number] [place] [address]- 4192 Apr, [facility] [place] [facility] [address] [id number] [place] [address]- 8924 Apr, [facility] [place] [facility] [address] [id number] [place] [address]- 3546 Apr, [facility] [place] [facility] [address] [id number] [place] [address]- 1089 Apr, [facility] [place] [facility] [address] [id number] [place] [address]- 4717 Apr, [facility] [place] [facility] [address] [id number] [place] [address]- 3320 Apr, [facility] [place] [facility] [address] [id number] [place] [address]- 9021 Apr, [facility] [place] [facility] [address] [id number] [place] [address]- 6880 18 Apr, 2013 [facility] [place] [facility] [address] [id number] [place] [address]- 8345 17 Apr, 2013 [facility] [place] [facility] [address] [id number] [place] [address]- 5604 14 Apr, 2013 [facility] [place] [facility] [address] [id number] [place] [address]- 8227 14 Apr, 2013 [facility] [place] [facility] [address] [id number] [place] [address]- 8490 11 Apr, 2013 [facility] [place] [facility] [address] [id number] [place] [address]- 8283 10 Apr, 2013 [facility] [place] [facility] [address] [id number] [place] [address]- 5295 09 Apr, 2013 [facility] [place] [facility] [address] [id number] [place] [address]- 4349 07 Apr, 2013 [facility] [place] [facility] [address] [id number] [place] [address]- 9022 06 Apr, 2013 [facility] [place] [facility] [address] [id number] [place] [address]- 9863 06 Apr, 2013 [facility] [place] [facility] [address] [id number] [place] [address]- 0145 05 Apr, 2013 [facility] [place] [facility] [address] [id number] [place] [address]- 5992 Apr, [facility] [place] [facility] [address] [id number] [place] [address]- 7138 March, [facility] [place] [facility] [address] [id number] [place] [address]- 4229 March, [facility] [place] [facility] [address] [id number] [place] [address]- 3394 March, [facility] [place] [facility] [address] [id number] [place] [address]- 1799 March, [facility] [place] [facility] [address] [id number] [place] [address]- 5516 13 Mar, 2013 [facility] [address] [id number] [place] [address]- 4980 March, [facility] [address] [id number] [place] [address]- 9436 March, [facility] [address] [id number] [place] [address]- 4296 Feb, [facility] [address] [id number] [place] [address]- 3107 Feb, [facility] [address] [id number] [place] [address]- 5266 27 Jan, 2013 [facility] [address] [id number] [place] [address]- 2261 18 Jan, 2013 [facility] [address] [id number] [place] [address]- 8340 15 Jan, 2013 [facility] [address] [id number] [place] [address]- 0603 14 Jan, 2013 [facility] [address] [id number] [place] [address]- 2253 13 Jan, 2013 [facility] [address] [id number] [place] [address]- 8178 12 Jan, 2013 [facility] [address] [id number] [place] [address]- 2600 11 Jan, 2013 [facility] [address] [id number] [place] [address]- 2813 09 Jan, 2013 [facility] [address] [id number] [place] [address]- 5147 08 Jan, 2013 [facility] [address] [id number] [place] [address]- 2546 07 Jan, 2013 [facility] [address] [id number] [place] [address]- 9225 Jan, [facility] [place] [facility] [address] [id number] [place] [address]- 2780 Nov, [facility] [place] [facility] [address] [id number] [place] [address]- 0565 Oct, [facility] [place] [facility] [address] [id number] [place] [address]- 2607 Oct, [facility] [place] [facility] [address] [id number] [place] [address]- 1247 Oct, [facility] [place] [facility] [address] [id number] [place] [address]- 4279 Oct, [facility] [place] [facility] [address] [id number] [place] [address]- 8581 Sep, [facility] [place] [facility] [address] [id number] [place] [address]- 0282 Sep, [facility] [place] [facility] [address] [id number] [place] [address]- 7727 Sep, [facility] [place] [facility] [address] [id number] [place] [address]- 4594 Sep, [facility] [place] [facility] [address] [id number], [place] [address]- 8266 Sep, [facility] [place] [facility] [address] [id number], [place] [address]- 5803 Sep, [facility] [place] [facility] [address] [id number], [place] [address]- 7551 Sep, [facility] [place] [facility] [address] [id number] [place] [address]- 4074 Sep, [facility] [place] [facility] [address] [id number], [place] [address]- 7296 Sep, [facility] [place] [facility] [address] [id number], [place] [address]- 9502 Sep, [facility] [place] [facility] [address] [id number], [place] [address]- 0989 Sep, [facility] [place] [facility] [address] [id number] [place] [address]- 3121 Aug, [facility] [place] [facility] [address] [id number] [place] [address]- 8797 Aug, [facility] [place] [facility] [address] [facility] [id number] [place] [address]- 5046 Aug, [facility] [place] [facility] [address] [id number] [place] [address]- 7845 28 Jul, 2012 [facility] [place] [facility] [address] [id number] [place] [address], [place] [address]- 7076 25 Jul, 2012 [facility] [place] [facility] [address] [id number] [place] [address]- 7297 19 Jul, 2012 [facility] [place] [facility] [id number] [address]- 3995 17 Jul, 2012 [facility] [place] [facility] [address] [id number] [place] [address]- 1726 20 Jun, 2012 [facility] [place] [facility] [address] [id number] [address]- 3225 16 Jun, 2012 [facility] [place] [facility] [address] [id number] [address]- 7664 15 Jun, 2012 [facility] [place] [facility] [address] [id number] [place] [address]- 6741 Jun, [facility] [place] [facility] [address] [id number], [place] [address]- 1105 Jun, [facility] [place] [facility] [address] [id number] [place] [address]- 1055 March, [facility] [place] [facility] [address] [facility] [id number] [place] 0977 Feb, [facility] [place] [facility] [address] [id number] [address]- 0629 Jan, [facility] [place] [facility] [address] [id number] [place] [address]- 8348 27 Jan, 2012 [facility] [place] [facility] [address] [id number] [place] [address]- 3906 22 Jan, 2012 [facility] [place] [facility] [address] [id number] [place] [address] 2546 14 Jan, 2012 [facility] [place] [facility] [address] [id number] [place] [address] 2546 14 Jan, 2012 [facility] [place] [facility] [address] [id number] [place] [address] 2549 14 Jan, 2012 [facility] [place] [facility] [address] [id number] [place] [address]- 0894 28 Dec, 2011 [facility] [place] [facility] [address] [id number] [place] [address]- 4045 27 Dec, 2011 [facility] [place] [facility] [address] [id number] [place] [address]- 8521 23 Dec, 2011 [facility] [place] [facility] [address] [id number] [place] [address]- 8991 21 Dec, 2011 [facility] [place] [facility] [address] [id number] [place] [address]- 8788 20 Dec, 2011 [facility] [place] [facility] [address] [id number] [place] [address]- 2033 19 Dec, 2011 [facility] [place] [facility] [address] [id number] [place] [address]- 2547 17 Dec, 2011 [facility] [place] [facility] [address] [id number] [place] [address]- 2547 16 Dec, 2011 [facility] [place] [facility] [address] [id number] [place] [address]- 2546 31 Nov, 2011 [facility] [place] [facility] [address] [id number] [place] [address]- 2540 13 Oct, 2011 [facility] [place] [facility] [address] [id number], [place] [address]- 6515 18 Sep, 2011 [facility] [address] [id number], [place] [address]- 0766 18 Sep, 2011 [facility] [id number], [place] [address]- 6300 17 Sep, 2011 [facility] [id number], [place] [address]- 9455 Sep, [facility] [id number], [place] [address]- 7106 Sep, [facility] [id number] [place] [address]- 3098 Sep, [facility] [id number], [place] [address]- 8993 Jan, [facility] [address], [place] [address]- 4159 Apr, IMMUNIZATIONS No Known Immunizations SOCIAL HISTORY Never Assessed REASON FOR VISIT abscess tooth PLAN OF CARE Activity Details Follow Up paz Reason:TE #31 as per DDS Nearing VITAL SIGNS Blood pressure systolic 122 mmHg 2018-04-27 Blood pressure diastolic 64 mmHg 2018-04-27 MEDICATIONS Medication Instructions Dosage Frequency Start Date End Date Duration Status Oxycodone-Acetaminophen 10-325 MG Orally every 4 hrs 1 tablet as needed 4h Not-Taking Klonopin 0.5 MG Orally 4 times a day as needed 1 tablet Aug, 30 days Active Ibuprofen 800 MG Orally Three times a day 1 tablet with food or milk as needed 8h March, Active Remeron 45 MG Orally Once a day at bedtime 1 tablet March, Active Abilify 15 mg Orally Once a day 1/2 tablet 24h Feb, Active Lamictal 200 mg Orally Once a day 1 tablet 24h Feb, Active RESULTS No Results PROCEDURES Procedure Date Ordered Result Body Site INTRAORL-PERIAPICAL 1 FILM 30098 April 27, 2018 BITEWING - SINGLE FILM April 27, 2018 Billing Notes on claim April 27, 2018 SCREENING OF A PATIENT April 27, 2018 INSTRUCTIONS MEDICATIONS ADMINISTERED No [...] History Left ovary removed 12/2016 Hospitalization History [place] Admission x4 2009 most recent admission Hospitalization History [facility]; overdose 2010 Hospitalization History child 11/29/2016
--- OUTSIDE RECORDS SUMMARY | 2018-08-05 20:21 | XMS REPORT ---
Author Author CRISPIN ESCOBEDO Organization [facility] Address [address] [place] [address] Care Team Providers Care Mobile Marketing Specialist Name Role Phone CRISPIN ESCOBEDO Unavailable PROBLEMS Type Condition ICD9-CM Code NQL24-DP Code Onset Dates Condition Status SNOMED Code Problem Generalized anxiety disorder F41.1 Active 25979719 Problem Acute non intractable tension-type headache G44.209 Active 447849166 Problem Acute right-sided low back pain with right-sided sciatica M54.41 Active 431059014 Problem Post traumatic stress disorder F43.10 Active 66754831 Problem Bipolar disorder, current episode mixed, moderate F31.62 Active 061169066 Problem Endometriosis N80.9 Active 885859754 Problem Borderline personality disorder F60.3 Active 28648740 ALLERGIES Substance Reaction Event Type Date Status Thioridazine HCl tachycardia Drug Allergy Apr, Active Pristiq Unknown Drug Allergy Apr, Active Penicillin V Potassium rash Drug Allergy Apr, Active Diclofenac Sodium nausea Drug Allergy Apr, Active Depakote fatigue Drug Allergy Apr, Active ENCOUNTERS Encounter Location Date Diagnosis [facility] [id number] [place] [address] 36081- 9836 Jul, [facility] [id number] [place] [address] [id number] Jun, [facility] [id number] [place] [address] 76679- 1522 Jun, Bipolar disorder, current episode mixed, moderate F31.62 [facility] [id number] [place] [address] 88109- 7672 May, Palpitations R00.2 [facility] [id number] [place] [address] 62642- 5462 May, Palpitations R00.2 [facility] [id number] [place] [address] 77495- 9746 12 May, 2018 Palpitations R00.2 and Frequent bowel movements R19.4 [facility] [id number] [place] [address] 45351- 2095 05 May, 2018 Bipolar disorder, current episode mixed, moderate F31.62 ; Post traumatic stress disorder F43.10 and Borderline personality disorder F60.3 [facility] [id number] [place] [address] [id number] 15 Apr, 2018 Dental examination Z01.20 [facility] [address] 90345 -3045 15 Apr, 2018 [facility] [id number] [place] [address] 04880 -5340 15 Apr, 2018 Tooth pain K08.89 [facility] [address] 23448- 5218 15 Apr, 2018 Dental examination Z01.20 [facility] [id number] [place] [address] 82957- 5748 06 Apr, 2018 Bipolar disorder, current episode mixed, moderate F31.62 ; Post traumatic stress disorder F43.10 and Borderline personality disorder F60.3 [facility] [id number] [place] [address] 00937 -9538 March, Abdominal pain R10.9 ; UTI symptoms R39.9 and Other microscopic hematuria R31.29 [facility] [id number] [place] [address] 99238- 1790 March, [facility] [address] 82098- 9963 March, Bipolar disorder, current episode mixed, moderate F31.62 ; Post traumatic stress disorder F43.10 and Borderline personality disorder F60.3 [facility] [id number] [place] [address] 61968- 0903 Feb, Encounter for immunization Z23 [facility] [id number] [place] [address] 55052- 6988 16 Feb, 2018 Bipolar disorder, current episode mixed, moderate F31.62 ; Post traumatic stress disorder F43.10 and Borderline personality disorder F60.3 [facility] [id number] [place] [address] 22796- 8980 11 Feb, 2018 Bipolar disorder, current episode mixed, moderate F31.62 ; Post traumatic stress disorder F43.10 ; Borderline personality disorder F60.3 and Other group home (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 Z79.899 [facility] [address] 86178- 9609 30 Jan, 2018 Encounter for immunization Z23 [facility] [address] 87296- 1939 30 Jan, 2018 [facility] [address] 39077- 2608 Jan, Bipolar disorder, current episode mixed, moderate F31.62 [facility] [id number] [place] [address] 16719 -3745 Jan, Lumbar back pain M54.5 [facility] [address] 88636- 0426 28 Dec, 2017 Low back pain M54.5 [facility] [address] 40619- 2458 13 Dec, 2017 Bipolar disorder, current episode mixed, moderate F31.62 [facility] [id number] [place] [address] 72236- 9516 Dec, Generalized anxiety disorder F41.1 and Bipolar disorder, current episode mixed, moderate F31.62 [facility] [id number] [place] [address] 53938 -3614 Nov, Acute non intractable tension-type headache G44.209 [facility] [address] 36095- 7628 Nov, Bipolar disorder, current episode mixed, moderate F31.62 ; Post traumatic stress disorder F43.10 and Borderline personality disorder F60.3 [facility] [id number] [place] [address] 46914- 9206 Nov, Bipolar disorder, current episode mixed, moderate F31.62 [facility] [id number] [place] [address] 18860 -9589 Nov, Abdominal pain R10.9 ; History of PCOS Z87.42 ; History of endometriosis Z87.42 and Pelvic pain R10.2 [facility] [id number] [place] [address] 41259- 1647 Nov, [facility] [place] [id number] [place] [address] 21696 -3245 Oct, History of PCOS Z87.42 ; History of endometriosis Z87.42 and Pain R52 [facility] [address] 95255- 8763 Oct, Bipolar disorder, current episode mixed, moderate F31.62 ; Post traumatic stress disorder F43.10 and Borderline personality disorder F60.3 [facility] [id number] [place] [address] 79340- 1277 Oct, Bipolar disorder, current episode mixed, moderate F31.62 [facility] [id number] [place] [address] 12164- 3748 Sep, Bipolar disorder, current episode mixed, moderate F31.62 ; Post traumatic stress disorder F43.10 ; Borderline personality disorder F60.3 and Other group home (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 Z79.899 [facility] [id number] [place] [address] 28177- 7741 Sep, Bipolar disorder, current episode mixed, moderate F31.62 [facility] [id number] [place] [address] 57050 -5741 Sep, Endometriosis N80.9 and Acute right-sided low back pain with right-sided sciatica M54.41 [facility] [address] [place] [address] 63357- 9673 Aug, [facility] [id number] [place] [address] 93175- 1662 Aug, Bipolar disorder, current episode mixed, moderate F31.62 ; Post traumatic stress disorder F43.10 and Borderline personality disorder F60.3 [facility] [id number] [place] [address] 12071- 9354 11 Aug, 2017 Bipolar disorder, current episode mixed, moderate F31.62 ; Post traumatic stress disorder F43.10 and Borderline personality disorder F60.3 [facility] [id number] [place] [address] 37627- 9734 13 Jul, 2017 Bipolar disorder, current episode mixed, moderate F31.62 ; Post traumatic stress disorder F43.10 and Borderline personality disorder F60.3 [facility] [id number] [place] [address] 11764 -3559 11 Jul, 2017 Pharyngitis, unspecified etiology J02.9 and Streptococcal pharyngitis J02.0 [facility] [id number] [place] [address] 95586- 8043 16 Jun, 2017 Bipolar disorder, current episode mixed, moderate F31.62 ; Post traumatic stress disorder F43.10 and Borderline personality disorder F60.3 [facility] [address] [place] [address] 07431- 3753 May, [facility] [id number] [place] [address] 46133- 6488 May, [facility] [id number] [place] [address] 46561- 7157 May, Bipolar disorder, current episode mixed, moderate F31.62 and Generalized anxiety disorder F41.1 [facility] [address] [place] [address] 81736- 5821 March, Bipolar disorder, current episode mixed, moderate F31.62 and Generalized anxiety disorder F41.1 [facility] [address] [place] [address] 84144- 8022 March, Pelvic pain R10.2 [facility] [id number] [place] [address] 6279 March, [facility] [id number] [place] [address] 41645- 5149 Feb, Bipolar disorder, current episode mixed, moderate F31.62 and Generalized anxiety disorder F41.1 [facility] [id number] [place] [address] 89136- 7494 Jan, [facility] [id number] [place] [address] 85207- 3572 Jan, Bipolar disorder, current episode mixed, moderate F31.62 [facility] [id number] [place] [address] 26627- 3279 Jan, Bipolar disorder, current episode mixed, moderate F31.62 [facility] [id number] [place] [address] 08493- 7503 Jan, Bilateral low back pain without sciatica M54.5 [facility] [id number] [place] [address] [id number] Jan, Dental caries K02.9 and Dental examination Z01.20 [facility] [id number] [place] [address] [id number] Jan, Encounter for dental examination and cleaning without abnormal findings Z01.20 [facility] [address] [place] [address] 98175- 7745 Jan, Bipolar disorder, current episode mixed, moderate F31.62 and Generalized anxiety disorder F41.1 [facility] [id number] [place] [address] 94090- 6125 Dec, [facility] [id number] [place] [address] 24744- 4746 Dec, Bipolar disorder, current episode mixed, moderate F31.62 and Generalized anxiety disorder F41.1 [facility] [address] [place] [address] 34611- 0713 03 Dec, 2016 Other fatigue R53.83 and Orthostatic hypotension I95.1 [facility] [address] [id number] Nov, Dental examination Z01.20 [facility] [address] 93100 -2513 Nov, Bronchitis J40 [facility] [address] 46867- 8294 Oct, Generalized anxiety disorder F41.1 [facility] [facility] [id number] [place] [address] 26103- 5834 Sep, Bipolar disorder, current episode mixed, moderate F31.62 and Generalized anxiety disorder F41.1 [facility] [id number] [place] [address] 93164- 0581 Sep, Bipolar disorder, current episode mixed, moderate F31.62 and Generalized anxiety disorder F41.1 [facility] [id number] [place] [address] 94885 -9129 08 Jul, 2016 Upper respiratory tract infection, unspecified type J06.9 [facility] [id number] [place] [address] 85652- 7635 Jun, Bipolar disorder, current episode mixed, moderate F31.62 and Generalized anxiety disorder F41.1 [facility] [id number] [place] [address] 38281- 1066 Apr, [facility] [facility] [address] 63182- 5341 Apr, Encounter for test, result positive Z32.01 [facility] [id number] [place] [address] 78171- 4833 March, [facility] [id number] [place] [address] 81480- 1034 March, Bipolar disorder, current episode mixed, moderate F31.62 and Generalized anxiety disorder F41.1 [facility] [id number] [place] [address] 17498- 4519 March, Bipolar disorder, current episode mixed, moderate F31.62 and Generalized anxiety disorder F41.1 [facility] [id number] [place] [address] 34053- 3698 March, [facility] [id number] [place] [address] 36673- 4691 March, [facility] [id number] [place] [address] 12770- 0260 Feb, [facility] [id number] [place] [address] 81393- 3547 Feb, [facility] [id number] [place] [address] 47667- 5374 Feb, Bipolar disorder, current episode mixed, moderate F31.62 and Generalized anxiety disorder F41.1 [facility] [id number] [place] [address] 04995- 9577 Jan, Abdominal pain R10.9 [facility] [id number] [place] [address] 22042- 9969 14 Jan, 2016 [facility] [id number] [place] [address] 65602- 3756 Dec, Dental examination Z01.20 [facility] [id number] [place] [address] 37926- 0577 Dec, Dental examination Z01.20 and Dental caries K02.9 [facility] [id number] [place] [address] 05589- 5106 15 Dec, 2015 Bipolar disorder, current episode mixed, moderate F31.62 and Generalized anxiety disorder F41.1 [facility] [id number] [place] [address] 64547- 2605 Dec, [facility] [address] [place] [address] 98685- 8493 Nov, Bipolar disorder, current episode mixed, moderate F31.62 ; Generalized anxiety disorder F41.1 and Seizure-like activity R56.9 [facility] [address] [place] [address] 62541- 3277 Oct, [facility] [facility] [address] 53267- 3929 Oct, Bipolar disorder, current episode mixed, moderate F31.62 [facility] [facility] [address] 80655- 8656 Oct, Well woman exam Z01.419 ; Encounter [...] Tobacco use Z72.0 and Hot flashes N95.1 [place] [id number] [place] [address] 81641- 0167 Oct, Seizure-like activity R56.9 and Irregular periods N92.6 [facility] [address] [place] [address] 13758- 3146 Oct, Bipolar disorder, current episode mixed, moderate F31.62 ; Generalized anxiety disorder F41.1 and Underweight R63.6 [facility] [facility] [address] 32554- 1919 Oct, [facility] [id number] [place] [address] 47999- 9798 Oct, Generalized anxiety disorder F41.1 and Unspecified mood [ affective] disorder F39 [facility] [address] [place] [address] -[address]128 Oct, Back pain M54.9 and Anxiety F41.9 [facility] [address] 98120- 4642 Oct, [facility] [id number] [place] [address] 82971 -3667 Sep, Arm pain, left M79.602 [facility] [address] 72045- 2674 Sep, [facility] [address] [id number] Sep, Dental examination Z01.20 and Dental caries K02.9 [facility] [id number] [place] [address] 86733- 8574 Sep, Generalized anxiety disorder F41.1 and Unspecified episodic mood disorder F39 [facility] [address] 19832- 1131 Sep, Bilateral low back pain without sciatica M54.5 and Seizure- like activity R56.9 [facility] [address] 09524- 8236 Aug, [facility] [id number] [place] [address] 31370- 3033 Aug, [facility] [address] 12888- 5947 Aug, [facility] [id number] [place] [address] 05633- 1644 Aug, Visual changes H53.9 and Bilateral low back pain without sciatica M54.5 [facility] [address] [place] [address] 11164- 6792 Jul, [facility] [address] 81469- 3293 Jun, Bipolar I disorder, most recent episode (or current) mixed, moderate 296.62 ; Generalized anxiety disorder 300.02 and High risk medication use V58.69 [facility] [address] [place] [address] 93084- 7048 Jun, [facility] [id number] [place] [address] 59572- 6065 May, [facility] [id number] [place] [address] 71275- 6215 May, Bipolar I disorder, most recent episode (or current) mixed, moderate 296.62 and Generalized anxiety disorder 300.02 [facility] [address] [place] [address] [id number] May, Dental examination V72.2 [facility] [id number] [place] [address] 58622- 3766 March, Bipolar I disorder, most recent episode (or current) mixed, moderate 296.62 and Generalized anxiety disorder 300.02 [facility] [id number] [place] [address] 45703- 5134 March, [facility] [id number] [place] [address] 97428- 8660 March, [facility] [address] [place] [address] 94610- 3406 March, Underweight 783.22 ; Hand pain, right 729.5 and Reflux gastritis 535.40 [facility] [id number] [place] [address] 35324- 5755 Feb, [facility] [id number] [place] [address] 18389- 8580 Feb, [facility] [id number] [place] [address] 20073- 9908 Jan, [facility] [id number] [place] [address] 54149- 8028 Jan, [facility] [id number] [place] [address] 47961- 6441 16 Jan, 2015 [facility] [place] [facility] [address] [id number] [place] [address]- 7475 16 Jan, 2015 [facility] [place] [facility] [address] [id number] [place] [address]- 9705 Jan, [facility] [place] [facility] [address] [facility] [id number] [place] [address]- 6269 Jan, [facility] [place] [facility] [address] [id number] [place] [address]- 2769 05 Jan, 2015 [facility] [place] [facility] [address] [id number] [place] [address]- 6548 05 Jan, 2015 [facility] [place] [facility] [address] [facility] [id number] [place] [address]- 0820 Jan, [facility] [place] [facility] [address] [facility] [id number] [place] [address]- 7215 Jan, [facility] [place] [facility] [address] [facility] [id number] [place] [address]- 3876 Jan, [facility] [place] [facility] [address] [facility] [id number] [place] [address]- 1498 Jan, [facility] [place] [facility] [address] [facility] [id number] [place] [address]- 7506 Dec, [facility] [place] [facility] [address] [facility] [id number] [address]- 3012 Dec, 2014 [facility] [place] [facility] [address] [facility] [id number], [place] [address]- 9561 Dec, 2014 [facility] [place] [facility] [address] [id number] [place] [address]- 1690 Dec, 2014 [facility] [place] [facility] [address] [facility] [id number] [place] [address]- 7697 18 Dec, 2014 [facility] [place] [facility] [address] [facility] [id number] [place] [address]- 2749 17 Dec, 2014 [facility] [place] [facility] [address] [id number] [place] [address]- 5958 17 Dec, 2014 [facility] [place] [facility] [address] [id number] [place] [address]- 8020 Dec, 2014 [facility] [place] [facility] [address] [id number] [place] [address]- 7966 Dec, 2014 [facility] [place] [facility] [address] [id number] [place] [address]- 8554 Dec, 2014 [facility] [place] [facility] [address] [id number] [place] [address]- 8938 Dec, 2014 [facility] [place] [facility] [address] [id number] [place] [address]- 5580 Dec, 2014 [facility] [place] [facility] [address] [facility] [id number] [place] [address]- 5951 Dec, 2014 [facility] [place] [facility] [address] [id number] [place] [address]- 7608 Dec, 2014 [facility] [place] [facility] [address] [facility] [id number] [place] [address]- 6859 Dec, 2014 [facility] [place] [facility] [address] [facility] [id number] [place] [address]- 8598 Dec, 2014 [facility] [place] [facility] [address] [facility] [id number], [place] [address]- 9496 Dec, 2014 [facility] [place] [facility] [address] [id number], [place] [address]- 7023 Dec, 2014 [facility] [place] [facility] [address] [facility] [id number] [place] [address]- 2239 Dec, 2014 [facility] [place] [facility] [address] [id number] [place] [address]- 5800 Nov, [facility] [place] [facility] [address] [facility] [id number] [place] [address]- 1059 Nov, [facility] [place] [facility] [address] [id number] [place] [address] 2546 Nov, [facility] [place] [facility] [address] [id number] [place] [address]- 0206 Nov, [facility] [place] [facility] [address] [id number] [place] [address] Nov, [facility] [place] [facility] [address] [id number] [place] [address] Nov, [facility] [place] [facility] [address] [facility] [id number] [place] [id number] Nov, [facility] [place] [facility] [address] [id number] [place] [address] Nov, [facility] [place] [facility] [address] [id number] [place] [address] Nov, [facility] [place] [facility] [address] [id number] [id number] Nov, [facility] [place] [facility] [address] [id number] [place] [address] Nov, [facility] [place] [facility] [address] [id number] [place] [address] Nov, [facility] [place] [facility] [address] [id number] [place] [address] Oct, [facility] [place] [facility] [address] [id number] [place] [address] Oct, [facility] [place] [facility] [address] [id number] [place] [address] Oct, [facility] [place] [facility] [address] [id number] [place] [address] Oct, [facility] [place] [facility] [address] [id number] [place] [address] Oct, [facility] [place] [facility] [address] [id number] [place] [address] Oct, [facility] [place] [facility] [address] [id number] [place] [address] Oct, [facility] [place] [facility] [address] [id number] [place] [address] Oct, [facility] [place] [facility] [address] [id number] [place] [address] Oct, [facility] [place] [facility] [address] [id number] [place] [address] [address] Oct, [facility] [place] [facility] [address] [id number] [place] [address] Oct, [facility] [place] [facility] [address] [id number] [place] [address] Oct, [facility] [place] [facility] [address] [address] [id number] [place] [address] Sep, [facility] [place] [facility] [address] [id number] [place] [address] 114[address] Sep, [facility] [place] [facility] [address] [id number] [place] [address]64 Sep, [facility] [place] [facility] [address] [id number] [place] [address] Sep, [facility] [place] [facility] [address] [id number] [place] [address] 3697 Sep, [facility] [place] [facility] [address] [id number] [place] [address] 0911 Sep, [facility] [place] [facility] [address] [id number] [place] [address]11 Sep, [facility] [place] [facility] [address] [id number] [place] [address] 5131 Sep, [facility] [place] [facility] [address] [id number] [place] [address]- 5203 Aug, [facility] [place] [facility] [address] [id number] [place] [address] 8972 Aug, [facility] [place] [facility] [address] [id number] [place] [address] 3781 Aug, [facility] [place] [facility] [address] [id number] [place] [address] 6423 Aug, [facility] [place] [facility] [address] [id number] [place] [address]- 8236 Aug, [facility] [place] [facility] [address] [id number] [place] [address]- 5512 Aug, [facility] [place] [facility] [address] [id number] [place] [address]- 0547 Aug, [facility] [place] [facility] [address] [id number] [place] [address]- 6132 Aug, [facility] [place] [facility] [address] [id number] [place] [address]- 0707 Aug, [facility] [place] [facility] [address] [id number], [place] [address] 6[address] Aug, [facility] [place] [facility] [address] [id number] [place] [address]- 2649 Aug, [facility] [place] [facility] [address] [id number], [place] [address] 8732 Aug, [facility] [place] [facility] [address] [id number], [place] [address] 1997 Aug, [facility] [place] [facility] [address] [id number], [place] [address] Jul, 2013 [facility] [place] [facility] [address] [id number] [place] [address]- 0219 22 Jul, 2014 [facility] [place] [facility] [address] [id number], [place] [address]- [address]89 19 Jul, 2013 [facility] [place] [facility] [address] [id number], [place] [address] 2002 19 Jul, 2013 [facility] [place] [facility] [address] [id number] [place] [address]- 7113 Jun, [facility] [place] [facility] [address] [id number] [place] [address]- 7527 Jun, [facility] [place] [facility] [address] [id number] [place] [address]- 9922 Jun, [facility] [place] [facility] [address] [id number] [place] [address]- 6182 Jun, [facility] [place] [facility] [address] [id number] [place] [address]- 8771 Jun, [facility] [place] [facility] [address] [id number] [place] [address]- 8938 Jun, [facility] [place] [facility] [address] [id number] [place] [address]- 0193 May, [facility] [place] [facility] [address] [id number] [place] [address]- 3005 May, [facility] [place] [facility] [address] [id number] [place] [address]- 3062 May, [facility] [place] [facility] [address] [id number] [place] [address]- 0939 May, [facility] [place] [facility] [address] [id number] [place] [address]- 0634 Apr, [facility] [place] [facility] [address] [id number] [place] [address]- 3060 Apr, [facility] [place] [facility] [address] [id number] [place] [address]- 7919 March, [facility] [place] [facility] [address] [id number] [place] [address]- 1445 March, [facility] [place] [facility] [address] [id number] [place] [address]- 5911 March, [facility] [place] [facility] [address] [id number] [place] [address]- 6033 March, [facility] [place] [facility] [address] [id number] [place] [address]- 5346 March, [facility] [place] [facility] [address] [id number] [place] [address]- 6219 March, [facility] [place] [facility] [address] [id number] [place] [address]- 8640 Feb, [facility] [place] [facility] [address] [id number] [place] [address]- 2056 Feb, [facility] [place] [facility] [address] [id number] [place] [address]- 9861 Dec, [facility] [place] [facility] [address] [id number] [place] [address]- 6849 Dec, [facility] [place] [facility] [address] [id number] [place] [address]- 0052 Nov, [facility] [place] [facility] [address] [id number] [place] [address]- 2593 Nov, [facility] [place] [facility] [address] [id number] [place] [address]- 3472 Sep, [facility] [place] [facility] [address] [id number] [place] [address]- 5368 Sep, [facility] [place] [facility] [address] [id number] [place] [address]- 7914 Sep, [facility] [place] [facility] [address] [id number], [place] [address] 5598 Sep, [facility] [place] [facility] [address] [id number] [place] [address]- 5089 Sep, [facility] [place] [facility] [address] [id number] [place] [address]- 4436 Sep, [facility] [place] [facility] [address] [id number], [place] [address]- 6548 Sep, [facility] [place] [facility] [address] [id number], [place] [address]- 8759 Aug, [facility] [place] [facility] [address] [id number] [place] [address]- 5072 Aug, [facility] [place] [facility] [address] [id number] [place] [address]- 0741 Aug, [facility] [place] [facility] [address] [id number] [place] [address]- 9730 Aug, [facility] [place] [facility] [address] [id number] [place] [address]- 5966 Aug, [facility] [place] [facility] [address] [id number] [place] [address]- 2890 Aug, [facility] [place] [facility] [address] [id number] [place] [address]- 3729 Jul, [facility] [place] [facility] [address] [id number] [place] [address]- 0129 Jul, [facility] [place] [facility] [address] [id number] [place] [address]- 8782 16 Jul, 2013 [facility] [place] [facility] [address] [id number] [place] [address]- 2495 Jul, [facility] [place] [facility] [address] [id number] [place] [address]- 3284 Jun, [facility] [place] [facility] [address] [id number] [place] [address]- 4152 Jun, [facility] [place] [facility] [address] [id number] [place] [address]- 7622 Jun, [facility] [place] [facility] [address] [id number] [place] [address]- 1706 Jun, [facility] [place] [facility] [address] [id number] [place] [address]- 0642 Jun, [facility] [place] [facility] [address] [id number] [place] [address]- 1075 Jun, [facility] [place] [facility] [address] [id number] [place] [address]- 5894 05 Jun, 2013 [facility] [place] [facility] [address] [id number] [place] [address]- 7071 May, [facility] [place] [facility] [address] [id number] [place] [address]- 5581 May, [facility] [place] [facility] [address] [id number] [place] [address]- 4117 16 May, 2013 [facility] [place] [facility] [address] [id number] [place] [address]- 5373 15 May, 2013 [facility] [place] [facility] [address] [id number] [place] [address]- 0273 May, [facility] [place] [facility] [address] [id number] [place] [address]- 2163 May, [facility] [place] [facility] [address] [id number] [place] [address]- 9973 May, [facility] [place] [facility] [address] [id number] [place] [address]- 1167 Apr, [facility] [place] [facility] [address] [id number] [place] [address]- 7401 Apr, [facility] [place] [facility] [address] [id number] [place] [address]- 9658 Apr, [facility] [place] [facility] [address] [id number] [place] [address]- 1367 Apr, [facility] [place] [facility] [address] [id number] [place] [address]- 1959 Apr, [facility] [place] [facility] [address] [id number] [place] [address]- 0181 Apr, [facility] [place] [facility] [address] [id number] [place] [address]- 0697 Apr, [facility] [place] [facility] [address] [id number] [place] [address]- 6268 18 Apr, 2013 [facility] [place] [facility] [address] [id number] [place] [address]- 9361 17 Apr, 2013 [facility] [place] [facility] [address] [id number] [place] [address]- 0528 14 Apr, 2013 [facility] [place] [facility] [address] [id number] [place] [address]- 7604 14 Apr, 2013 [facility] [place] [facility] [address] [id number] [place] [address]- 5826 11 Apr, 2013 [facility] [place] [facility] [address] [id number] [place] [address]- 2804 10 Apr, 2013 [facility] [place] [facility] [address] [id number] [place] [address]- 0358 09 Apr, 2013 [facility] [place] [facility] [address] [id number] [place] [address]- 7047 07 Apr, 2013 [facility] [place] [facility] [address] [id number] [place] [address]- 8054 06 Apr, 2013 [facility] [place] [facility] [address] [id number] [place] [address]- 7310 06 Apr, 2013 [facility] [place] [facility] [address] [id number] [place] [address]- 9605 05 Apr, 2013 [facility] [place] [facility] [address] [id number] [place] [address]- 4432 Apr, [facility] [place] [facility] [address] [id number], [place] [address]- 9276 March, [facility] [place] [facility] [address] [id number] [place] [address]- 5163 March, [facility] [place] [facility] [address] [id number] [place] [address]- 2959 March, [facility] [place] [facility] [address] [id number] [place] [address]- 6661 March, [facility] [place] [facility] [address] [id number] [place] [address]- 7706 13 Mar, 2013 [facility] [address] [id number] [place] [address]- 0887 March, [facility] [address] [id number] [place] [address]- 3485 March, [facility] [address] [id number] [place] [address]- 4050 Feb, [facility] [address] [id number] [place] [address]- 9732 Feb, [facility] [address] [id number] [place] [address]- 5327 27 Jan, 2013 [facility] [address] [id number] [place] [address]- 6887 18 Jan, 2013 [facility] [address] [id number] [place] [address]- 1651 15 Jan, 2013 [facility] [address] [id number] [place] [address]- 5606 14 Jan, 2013 [facility] [address] [id number] [place] [address]- 9540 13 Jan, 2013 [facility] [address] [id number] [place] [address]- 9660 12 Jan, 2013 [facility] [address] [id number] [place] [address]- 6841 11 Jan, 2013 [facility] [address] [id number] [place] [address]- 0478 09 Jan, 2013 [facility] [address] [id number] [place] [address]- 1348 08 Jan, 2013 [facility] [address] [id number] [place] [address]- 2161 07 Jan, 2013 [facility] [address] [id number] [place] [address]- 1142 06 Jan, 2013 [facility] [place] [facility] [address] [id number] [place] [address]- 7186 Nov, [facility] [place] [facility] [address] [id number] [place] [address]- 9008 Oct, [facility] [place] [facility] [address] [id number] [place] [address]- 4029 Oct, [facility] [place] [facility] [address] [id number] [place] [address]- 0201 Oct, [facility] [place] [facility] [address] [id number] [place] [address]- 8760 Oct, [facility] [place] [facility] [address] [id number] [place] [address]- 9942 Sep, [facility] [place] [facility] [address] [id number] [place] [address]- 1321 Sep, [facility] [place] [facility] [address] [id number] [place] [address]- 4350 Sep, [facility] [place] [facility] [address] [id number] [place] [address]- 7063 Sep, [facility] [place] [facility] [address] [id number] [place] [address]- 1428 Sep, [facility] [place] [facility] [address] [id number] [place] [address]- 0514 Sep, [facility] [place] [facility] [address] [id number] [place] [address]- 5972 Sep, [facility] [place] [facility] [address] [id number] [place] [address]- 3310 Sep, [facility] [place] [facility] [address] [id number] [place] [address]- 6392 Sep, [facility] [place] [facility] [address] [id number] [place] [address]- 2560 Sep, [facility] [place] [facility] [address] [id number] [place] [address]- 6846 Sep, [facility] [place] [facility] [address] [id number] [place] [address]- 6349 Aug, [facility] [place] [facility] [address] [id number] [place] [address]- 6750 Aug, [facility] [place] [facility] [address] [id number] [place] [address]- 0091 Aug, [facility] [place] [facility] [address] [id number] [place] [address]- 6438 28 Jul, 2012 [facility] [place] [facility] [address] [id number] [place] [address]- 9429 25 Jul, 2012 [facility] [place] [facility] [address] [id number] [place] [address]- 0963 19 Jul, 2012 [facility] [place] [facility] [address] [id number] [place] [address]- 4459 17 Jul, 2012 [facility] [place] [facility] [address] [id number] [place] [address]- 9980 20 Jun, 2012 [facility] [place] [facility] [address] [id number] [place] [address]- 7098 16 Jun, 2012 [facility] [place] [facility] [address] [id number] [place] [address]- 8361 15 Jun, 2012 [facility] [place] [facility] [address] [id number] [place] [address]- 3311 15 Jun, 2012 [facility] [place] [facility] [address] [id number] [place] [address]- 7389 Jun, [facility] [place] [facility] [address] [id number] [place] [address]- 1257 March, [facility] [place] [facility] [address] [id number] [place] [address]- 4693 Feb, [facility] [place] [facility] [address] [id number] [place] [address]- 2198 Jan, [facility] [place] [facility] [address] [id number] [place] [address]- 9845 27 Jan, 2012 [facility] [place] [facility] [address] [id number] [place] [address]- 8270 22 Jan, 2012 [facility] [place] [facility] [address] [id number] [place] [address] 2546 14 Jan, 2012 [facility] [place] [facility] [address] [id number] [place] [address]- 4226 14 Jan, 2012 [facility] [place] [facility] [address] [id number] [place] [address] 2547 14 Jan, 2012 [facility] [place] [facility] [address] [id number] [place] [address]- 6773 28 Dec, 2011 [facility] [place] [facility] [address] [id number] [place] [address]- 8176 27 Dec, 2011 [facility] [place] [facility] [address] [id number] [place] [address]- 3427 23 Dec, 2011 [facility] [place] [facility] [address] [id number] [place] [address]- 1603 21 Dec, 2011 [facility] [place] [facility] [address] [id number] [place] [address]- 2919 20 Dec, 2011 [facility] [place] [facility] [address] [facility] [id number] [place] [address]- 2311 19 Dec, 2011 [facility] [place] [facility] [address] [id number] [place] [address]- 8736 17 Dec, 2011 [facility] [place] [facility] [address] [id number] [place]50 16 Dec, 2011 [facility] [place] [facility] [address] [id number] [place] [address]- 7408 31 Nov, 2011 [facility] [place] [facility] [address] [id number] [place] [address]- 8459 13 Oct, 2011 [facility] [place] [facility] [address] [id number], [place] [address]- 2470 18 Sep, 2011 [facility] [address] [facility] [id number], [place] [address]- 6797 18 Sep, 2011 [facility] [address] [facility] [id number], [place] [address]- 7598 Sep, [facility] [address] [facility] [id number], [place] [address]- 2525 Sep, [facility] [address] [facility] [id number][place] [address]- 5706 Sep, [facility] [address] [facility] [id number], [place] [address]- 3399 Sep, [facility] [id number], [place] [address]- 3657 Jan, [facility] [address] [id number], [place] [address]- 1420 Apr, IMMUNIZATIONS No Known Immunizations SOCIAL HISTORY Never Assessed REASON FOR VISIT jaw pain/possible abscess tooth Pt c/o jaw pain for about a week, possibly has a bad tooth, but she does not feel that is the jaw pain as she clinches her jaws at night MAILE Dumont PLAN OF CARE Activity Details Follow Up with dental Reason:tooth pain VITAL SIGNS Height 66 in 2018-04-27 Weight 137.2 lbs 2018-04-27 Temperature 98.7 degrees Fahrenheit 2018-04-27 Heart Rate 88 bpm 2018-04-27 Respiratory Rate 18 2018-04-27 BMI 22.14 kg/m2 2018-04-27 Blood pressure systolic 122 mmHg 2018-04-27 Blood pressure diastolic 64 mmHg 2018-04-27 MEDICATIONS Medication Instructions Dosage Frequency Start Date End Date Duration Status Remeron 45 MG Orally Once a day at bedtime 1 tablet March, Active Ibuprofen 800 MG Orally Three times a day 1 tablet with food or milk as needed 8h March, Active Klonopin 0.5 MG Orally 4 times a day as needed 1 tablet Aug, 30 days Active Lamictal 200 mg Orally Once a day 1 tablet 24h Feb, Active Abilify 15 mg Orally Once a day 1/2 tablet 24h Feb, Active RESULTS No Results PROCEDURES No Known [...] History Left ovary removed 12/2016 Hospitalization History [facility] x[facility] 2009 most recent admission Hospitalization History [facility]; overdose 2010 Hospitalization History child 11/29/2016
--- OUTSIDE RECORDS SUMMARY | 2018-08-05 20:22 | XMS REPORT ---
Author Author RAVIN HOLDER [facility] IN [facility] Address [address] [place] [address] Care Team Providers Care Tool Maintenance Technician Name Role Phone RAVIN HOLDER Unavailable PROBLEMS Type Condition ICD9-CM Code [id number] Code Onset Dates Condition Status SNOMED Code Problem Generalized anxiety disorder F41.1 Active 56461319 Problem Acute non intractable tension-type headache G44.209 Active 365164973 Problem Acute right-sided low back pain with right-sided sciatica M54.41 Active 580441843 Problem Post traumatic stress disorder F43.10 Active 75291584 Problem Bipolar disorder, current episode mixed, moderate F31.62 Active 931048658 Problem Endometriosis N80.9 Active 460589308 Problem Borderline personality disorder F60.3 Active [id number] ALLERGIES No Information ENCOUNTERS Encounter Location Date Diagnosis [facility] [id number] [place] [address] 69087- 1811 Jul, [facility] [id number] [place] [address] [id number] Jun, [facility] [id number] [place] [address] 24320- 5742 Jun, Bipolar disorder, current episode mixed, moderate F31.62 [facility] [id number] [place] [address] 59448- 1524 May, Palpitations R00.2 [facility] [address] 49650- 8677 May, Palpitations R00.2 [facility] [address] 32032- 5520 May, Palpitations R00.2 and Frequent bowel movements R19.4 [facility] [address] [address] 05 May, 2018 Bipolar disorder, current episode mixed, moderate F31.62 ; Post traumatic stress disorder F43.10 and Borderline personality disorder F60.3 [facility] [id number] [id number] 15 Apr, 2018 Dental examination Z01.20 [facility] [address] [place] [address] 60662 -7465 15 Apr, 2018 [facility] [address] [place] [address] 64811 -7118 15 Apr, 2018 Tooth pain K08.89 [facility] [id number] [place] [address] 12976- 2051 15 Apr, 2018 Dental examination Z01.20 [facility] [address] [place] [address] 11738- 5315 06 Apr, 2018 Bipolar disorder, current episode mixed, moderate F31.62 ; Post traumatic stress disorder F43.10 and Borderline personality disorder F60.3 [facility] [address] [place] [address] 07162 -6332 March, Abdominal pain R10.9 ; UTI symptoms R39.9 and Other microscopic hematuria R31.29 [facility] [address] [place] [address] 31366- 2735 March, [facility] [id number] [place] [address] 59668- 7673 March, Bipolar disorder, current episode mixed, moderate F31.62 ; Post traumatic stress disorder F43.10 and Borderline personality disorder F60.3 [facility] [id number] [place] [address] 88833- 6103 Feb, Encounter for immunization Z23 [facility] [address] [place] [address] 70032- 5131 Feb, Bipolar disorder, current episode mixed, moderate F31.62 ; Post traumatic stress disorder F43.10 and Borderline personality disorder F60.3 [facility] [id number] [place] [address] 74690- 5465 Feb, Bipolar disorder, current episode mixed, moderate F31.62 ; Post traumatic stress disorder F43.10 ; Borderline personality disorder F60.3 and 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 [place] [facility] [address] 127911- 436 Jan, Encounter for immunization Z23 [facility] [address] 33787- 2362 Jan, [facility] [address] 387188- 0578 Jan, Bipolar disorder, current episode mixed, moderate F31.62 [facility] [address] 90408 -4317 Jan, Lumbar back pain M54.5 [place] [facility] [address] 60392- 9558 Dec, Low back pain M54.5 [facility] [address] 19839- 4157 13 Dec, 2017 Bipolar disorder, current episode mixed, moderate F31.62 [facility] [address] 44380- 0441 Dec, Generalized anxiety disorder F41.1 and Bipolar disorder, current episode mixed, moderate F31.62 [facility] [address] 12147 -5196 Nov, Acute non intractable tension-type headache G44.209 [facility] [address] 59912- 3187 Nov, Bipolar disorder, current episode mixed, moderate F31.62 ; Post traumatic stress disorder F43.10 and Borderline personality disorder F60.3 [facility] [address] 54397- 9840 Nov, Bipolar disorder, current episode mixed, moderate F31.62 [facility] [id number] [place] [address] 57400 -5832 Nov, Abdominal pain R10.9 ; History of PCOS Z87.42 ; History of endometriosis Z87.42 and Pelvic pain R10.2 [facility] [id number] [place] [address] 47312- 3374 Nov, [facility] [address] 00766 -9350 Oct, History of PCOS Z87.42 ; History of endometriosis Z87.42 and Pain R52 [facility] [facility] [address] 14780- 6435 Oct, Bipolar disorder, current episode mixed, moderate F31.62 ; Post traumatic stress disorder F43.10 and Borderline personality disorder F60.3 [facility] [address] 17048- 0415 Oct, Bipolar disorder, current episode mixed, moderate F31.62 [facility] [address] 97158- 4047 Sep, Bipolar disorder, current episode mixed, moderate F31.62 ; Post traumatic stress disorder F43.10 ; Borderline personality disorder F60.3 and 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 [facility] [id number] [place] [address] 27216- 3972 Sep, Bipolar disorder, current episode mixed, moderate F31.62 [facility] [id number] [place] [address] 20493 -4981 Sep, Endometriosis N80.9 and Acute right-sided low back pain with right-sided sciatica M54.41 [facility] [facility] [address] 59225- 4273 Aug, [facility] [address] 78833- 5732 Aug, Bipolar disorder, current episode mixed, moderate F31.62 ; Post traumatic stress disorder F43.10 and Borderline personality disorder F60.3 [facility] [id number] [place] [address] 62052- 5232 11 Aug, 2017 Bipolar disorder, current episode mixed, moderate F31.62 ; Post traumatic stress disorder F43.10 and Borderline personality disorder F60.3 [facility] [id number] [place] [address] 76046- 6298 13 Jul, 2017 Bipolar disorder, current episode mixed, moderate F31.62 ; Post traumatic stress disorder F43.10 and Borderline personality disorder F60.3 [facility] IN [facility] [id number] [place] [address] 91975 -5480 11 Jul, 2017 Pharyngitis, unspecified etiology J02.9 and Streptococcal pharyngitis J02.0 [facility] [id number] [place] [address] 60204- 1634 Jun, Bipolar disorder, current episode mixed, moderate F31.62 ; Post traumatic stress disorder F43.10 and Borderline personality disorder F60.3 [facility] [id number] [place] [address] 84113- 6120 May, [facility] [id number] [place] [address] 39856- 2708 May, [facility] [id number] [place] [address] 07145- 2631 May, Bipolar disorder, current episode mixed, moderate F31.62 and Generalized anxiety disorder F41.1 [facility] [id number] [place] [address] 25170- 6284 March, Bipolar disorder, current episode mixed, moderate F31.62 and Generalized anxiety disorder F41.1 [facility] [id number] [place] [address] 74652- 9667 04 Mar, 2017 Pelvic pain R10.2 [facility] [address] [place] [address]- 9316 March, [facility] [id number] [place] [address]- 735 Feb, Bipolar disorder, current episode mixed, moderate F31.62 and Generalized anxiety disorder F41.1 [facility] [id number] [place] [address] 57107- 1237 Jan, [facility] [id number] [place] [address]- 5038 Jan, Bipolar disorder, current episode mixed, moderate F31.62 [facility] [id number] [place] [address] 144019- 2727 Jan, Bipolar disorder, current episode mixed, moderate F31.62 [facility] [id number] [place] [address] 31396- 8954 Jan, Bilateral low back pain without sciatica M54.5 [facility] [id number] [place] [address] [id number] Jan, Dental caries K02.9 and Dental examination Z01.20 [facility] [address] [id number] Jan, Encounter for dental examination and cleaning without abnormal findings Z01.20 [facility] [id number] [place] [address] 23786- 2197 Jan, Bipolar disorder, current episode mixed, moderate F31.62 and Generalized anxiety disorder F41.1 [facility] [address] [place] [address] 46263- 8923 Dec, [facility] [id number] [place] [address] 37177- 4985 Dec, Bipolar disorder, current episode mixed, moderate F31.62 and Generalized anxiety disorder F41.1 [facility] [id number] [place] [address] 16609- 0543 Dec, Other fatigue R53.83 and Orthostatic hypotension I95.1 [facility] [id number] [id number] Nov, Dental examination Z01.20 [facility] [id number] [place] [address] 59939 -7837 Nov, Bronchitis J40 [facility] [id number] [place] [address] 16080- 3460 Oct, Generalized anxiety disorder F41.1 [facility] [id number] [place] [address] 11076- 2284 14 Sep, 2016 Bipolar disorder, current episode mixed, moderate F31.62 and Generalized anxiety disorder F41.1 [facility] [id number] [place] [address] 29825- 1340 02 Sep, 2016 Bipolar disorder, current episode mixed, moderate F31.62 and Generalized anxiety disorder F41.1 [facility] [id number] [place] [address] 55732 -1681 08 Jul, 2016 Upper respiratory tract infection, unspecified type J06.9 [facility] [id number] [place] [address] 78989- 1195 Jun, Bipolar disorder, current episode mixed, moderate F31.62 and Generalized anxiety disorder F41.1 [facility] [id number] [place] [address] 17826- 5336 Apr, [facility] [id number] [place] [address] 19300- 6237 Apr, Encounter for test, result positive Z32.01 [facility] [id number] [place] [address] 62094- 0138 March, [facility] [facility] [address] 87770- 8452 March, Bipolar disorder, current episode mixed, moderate F31.62 and Generalized anxiety disorder F41.1 [facility] [id number] [place] [address] 07231- 2940 March, Bipolar disorder, current episode mixed, moderate F31.62 and Generalized anxiety disorder F41.1 [facility] [id number] [place] [address] 06825- 4437 March, [facility] [id number] [place] [address] 72317- 6977 March, [facility] [id number] [place] [address] 84844- 7118 Feb, [facility] [id number] [place] [address] 12646- 4301 Feb, [facility] [id number] [place] [address] 00896- 4390 Feb, Bipolar disorder, current episode mixed, moderate F31.62 and Generalized anxiety disorder F41.1 [facility] [id number] [place] [address] 58862- 9452 Jan, Abdominal pain R10.9 [facility] [id number] [place] [address] 85539- 4976 Jan, [facility] [id number] [place] [address] 24528- 9627 29 Dec, 2015 Dental examination Z01.20 [facility] [id number] [place] [address] 94536- 9296 22 Dec, 2015 Dental examination Z01.20 and Dental caries K02.9 [facility] [address] [place] [address] 10988- 8505 15 Dec, 2015 Bipolar disorder, current episode mixed, moderate F31.62 and Generalized anxiety disorder F41.1 [facility] [id number] [place] [address] 18121- 5814 Dec, [facility] [id number] [place] [address] 14380- 0053 Nov, Bipolar disorder, current episode mixed, moderate F31.62 ; Generalized anxiety disorder F41.1 and Seizure-like activity R56.9 [facility] [address] [place] [address] 00185- 5337 Oct, [facility] [facility] [address] 13993- 0975 Oct, Bipolar disorder, current episode mixed, moderate F31.62 [facility] [facility] [address] 77464- 8463 14 Oct, 2015 Well woman exam Z01.419 [...] Tobacco use Z72.0 and Hot flashes N95.1 [facility] [id number] [place] [address] 55634- 0374 09 Oct, 2015 Seizure-like activity R56.9 and Irregular periods N92.6 [facility] [id number] [place] [address] 73744- 0442 07 Oct, 2015 Bipolar disorder, current episode mixed, moderate F31.62 ; Generalized anxiety disorder F41.1 and Underweight R63.6 [facility] [id number] [place] [address] 75178- 6635 Oct, [facility] [id number] [place] [address] 59286- 1151 Oct, Generalized anxiety disorder F41.1 and Unspecified mood [ affective] disorder F39 [facility] [id number] [place] [address] 31372 -2427 Oct, Back pain M54.9 and Anxiety F41.9 [facility] [address] 21515- 6310 Oct, [facility] [address] [place] [address] 93320 -2018 Sep, Arm pain, left M79.602 [facility] [id number] [place] [address] 01365- 3646 Sep, [facility] [address] [place] [address] [id number] Sep, Dental examination Z01.20 and Dental caries K02.9 [facility] [id number] [place] [address] 47999- 0994 Sep, Generalized anxiety disorder F41.1 and Unspecified episodic mood disorder F39 [facility] [id number] [place] [address] 48735- 7235 Sep, Bilateral low back pain without sciatica M54.5 and Seizure- like activity R56.9 [facility] [id number] [place] [address] 08014- 2004 Aug, [facility] [id number] [place] [address] 44462- 0309 Aug, [facility] [id number] [place] [address] 38023- 2954 Aug, [facility] [id number] [place] [address] 63677- 4051 Aug, Visual changes H53.9 and Bilateral low back pain without sciatica M54.5 [facility] [id number] [place] [address] 73132- 1208 Jul, [facility] [address] 76191- 5286 Jun, Bipolar I disorder, most recent episode (or current) mixed, moderate 296.62 ; Generalized anxiety disorder 300.02 and High risk medication use V58.69 [facility] [id number] [place] [address] 46017- 9268 Jun, [facility] [address], [place] [address]- 8690 May, [facility] [id number] [place] [address] 90768- 0705 May, Bipolar I disorder, most recent episode (or current) mixed, moderate 296.62 and Generalized anxiety disorder 300.02 [facility] [address] [place] [address] [id number] May, Dental examination V72.2 [facility] [id number] [place] [address] 21100- 7418 March, Bipolar I disorder, most recent episode (or current) mixed, moderate 296.62 and Generalized anxiety disorder 300.02 [facility] [id number] [place] [address] 27197- 3781 March, [facility] [id number] [place] [address] 14923- 8360 March, [facility] [id number] [place] [address] 17925- 4368 March, Underweight 783.22 ; Hand pain, right 729.5 and Reflux gastritis 535.40 [facility] [address], [place] [address]- 9254 Feb, [facility] [id number] [address]- 1919 Feb, [facility] [id number] [place] [address] 28212- 1915 Jan, [facility] [id number] [place] [address] 35435- 9599 Jan, [facility] [id number] [place] [address] 57995- 2455 Jan, [facility] [address], [place] [address]- 2011 Jan, [facility] [id number] [place] [address]- 9903 13 Jan, 2014 [facility] [place] [facility] [address] [id number] [place] [address]- 6873 13 Jan, 2014 [facility] [place] [facility] [address] [id number] [place] [address]- 6263 05 Jan, 2014 [facility] [place] [facility] [address] [id number] [place] [address]- 5146 05 Jan, 2014 [facility] [place] [facility] [address] [id number] [place] [address]- 5476 04 Jan, 2014 [facility] [place] [facility] [address] [id number] [place] [address]- 9251 04 Jan, 2014 [facility] [place] [facility] [address] [facility] [id number] [place] [address]- 4538 Jan, 2014 [facility] [place] [facility] [address] [facility] [id number] [place] [address]- 1610 Jan, 2014 [facility] [place] [facility] [address] [facility] [id number] [place] [address]- 9914 20 Dec, 2014 [facility] [place] [facility] [address] [facility] [id number] [place] [address]- 2108 20 Dec, 2014 [facility] [place] [facility] [address] [facility] [id number] [place] [address]- 4378 19 Dec, 2014 [facility] [place] [facility] [address] [facility] [id number] [place] [address]- 3955 19 Dec, 2014 [facility] [place] [facility] [address] [facility] [id number] [place] [address]- 6728 18 Dec, 2014 [facility] [place] [facility] [address] [facility] [id number] [place] [address]- 7645 17 Dec, 2014 [facility] [place] [facility] [address] [facility] [id number] [place] [address]- 0926 17 Dec, 2014 [facility] [place] [facility] [address] [facility] [id number] [place] [address]- 0603 Dec, 2014 [facility] [place] [facility] [address] [id number] [place] [address]- 1152 Dec, 2014 [facility] [place] [facility] [address] [id number] [place] [address]- 1282 Dec, 2014 [facility] [place] [facility] [address] [facility] [id number] [place] [address]- 2753 Dec, 2014 [facility] [place] [facility] [address] [id number] [place] [address]- 5340 Dec, 2014 [facility] [place] [facility] [address] [id number] [place] [address]- 9831 Dec, 2014 [facility] [place] [facility] [address] [facility] [id number] [place] [address]- 8405 Dec, 2014 [facility] [place] [facility] [address] [facility] [id number] [place] [address]- 5130 Dec, 2014 [facility] [place] [facility] [address] [facility] [id number] [place] [address]- 0489 Dec, 2014 [facility] [place] [facility] [address] [facility] [id number] [place] [address]- 5381 Dec, 2014 [facility] [place] [facility] [address] [facility] [id number] [place] [address]- 1291 Dec, [facility] [place] [facility] [address] [facility] [id number] [place] [address]- 7918 Dec, 2014 [facility] [place] [facility] [address] [facility] [id number], [place] [address]- 2196 Nov, [facility] [place] [facility] [address] [facility] [id number] [place] [address]- 2884 Nov, [facility] [place] [facility] [address] [facility] [id number] [address]- 1523 Nov, [facility] [place] [facility] [address] [facility] [id number] [address]- 9514 Nov, [facility] [place] [facility] [address] [id number] [place] [address]- 2546 Nov, [facility] [place] [facility] [address] [id number] [place] [address]- 2546 Nov, [facility] [place] [facility] [address] [id number] [place] [id number] Nov, [facility] [place] [facility] [address] [id number] [place] [address]- 2546 Nov, [facility] [place] [facility] [address] [id number] [place] [address]- 2546 Nov, [facility] [place] [facility] [address] [id number] [place] [id number] Nov, [facility] [place] [facility] [address] [id number] [place] [address]- 2546 Nov, [facility] [place] [facility] [address] [id number] [place] [address] Nov, [facility] [place] [facility] [address] [id number] [place] [address] Oct, [facility] [place] [facility] [address] [id number] [place] [address] Oct, [facility] [place] [facility] [address] [id number] [place] [address] Oct, [facility] [place] [facility] [address] [id number] [place] [address] Oct, [facility] [place] [facility] [address] [id number] [place] [address] Oct, [facility] [place] [facility] [address] [id number] [place] [address] Oct, [facility] [place] [facility] [address] [id number] [place] [address] Oct, [facility] [place] [facility] [address] [id number] [place] [address] Oct, [facility] [place] [facility] [address] [id number] [place] [address] Oct, [facility] [place] [facility] [address] [id number] [place] [address] Oct, [facility] [place] [facility] [address] [id number] [place] [address] Oct, [facility] [place] [facility] [address] [id number] [place] [address] Oct, [facility] [place] [facility] [address] [id number] [place] [address] Sep, [facility] [place] [facility] [address] [id number] [place] [address] Sep, [facility] [place] [facility] [address] [id number] [place] [address] Sep, [facility] [place] [facility] [address] [id number] [place] [address] Sep, [facility] [place] [facility] [address] [id number] [place] [address] Sep, [facility] [place] [facility] [address] [id number] [place] [address] Sep, [facility] [place] [facility] [address] [id number], [place] [address] Sep, [facility] [place] [facility] [address] [id number], [place] [address] Sep, [facility] [place] [facility] [address] [id number] [place] [address] Aug, [facility] [place] [facility] [address] [id number] [place] [address]- 6182 Aug, [facility] [place] [facility] [address] [id number] [place] [address]- 8446 Aug, [facility] [place] [facility] [address] [id number] [place] [address]- 9320 Aug, [facility] [place] [facility] [address] [id number] [place] [address]- 8372 Aug, [facility] [place] [facility] [address] [id number] [place] [address]- 3028 Aug, [facility] [place] [facility] [address] [id number] [place] [address]- 4516 08 Aug, 2014 [facility] [place] [facility] [address] [id number] [place] [address]- 0621 08 Aug, 2014 [facility] [place] [facility] [address] [id number] [place] [address]- 4264 Aug, [facility] [place] [facility] [address] [id number] [place] [address]- 4056 Aug, [facility] [place] [facility] [address] [id number] [place] [address]- 6117 Aug, [facility] [place] [facility] [address] [id number] [place] [address]- 2226 Aug, [facility] [place] [facility] [address] [id number] [place] [address]- 3181 Aug, [facility] [place] [facility] [address] [id number] [place] [address]- 5929 Jul, [facility] [place] [facility] [address] [id number] [place] [address]- 0919 Jul, [facility] [place] [facility] [address] [id number] [place] [address]- 1587 Jul, [facility] [place] [facility] [address] [id number] [place] [address]- 6470 Jul, [facility] [place] [facility] [address] [id number] [place] [address]- 5357 Jun, [facility] [place] [facility] [address] [id number] [place] [address]- 9155 Jun, [facility] [place] [facility] [address] [id number] [place] [address]- 4624 Jun, [facility] [place] [facility] [address] [id number] [place] [address]- 6053 Jun, [facility] [place] [facility] [address] [id number] [place] [address]- 0591 Jun, [facility] [place] [facility] [address] [id number] [place] [address]- 6741 Jun, [facility] [place] [facility] [address] [id number] [place] [address]- 4225 May, [facility] [place] [facility] [address] [id number] [place] [address]- 5043 May, [facility] [place] [facility] [address] [id number] [place] [address]- 8276 May, [facility] [place] [facility] [address] [id number] [place] [address]- 6604 May, [facility] [place] [facility] [address] [id number] [place] [address]- 5005 Apr, [facility] [place] [facility] [address] [id number] [place] [address]- 0939 Apr, [facility] [place] [facility] [address] [id number] [place] [address]- 3636 March, [facility] [place] [facility] [address] [id number] [place] [address]- 4647 March, [facility] [place] [facility] [address] [id number] [place] [address]- 5680 March, [facility] [place] [facility] [address] [id number] [place] [address]- 6598 March, [facility] [place] [facility] [address] [id number] [place] [address]- 9323 March, [facility] [place] [facility] [address] [id number], [place] [address] 9037 March, [facility] [place] [facility] [address] [id number] [place] [address]- 9318 Feb, [facility] [place] [facility] [address] [id number] [place] [address]- 2379 Feb, [facility] [place] [facility] [address] [id number] [place] [address]- 9824 Dec, [facility] [place] [facility] [address] [id number] [place] [address]- 6846 Dec, [facility] [place] [facility] [address] [id number] [place] [address]- 9008 Nov, [facility] [place] [facility] [address] [id number] [place] [address]- 0798 Nov, [facility] [place] [facility] [address] [id number] [place] [address]- 9780 Sep, [facility] [place] [facility] [address] [id number] [place] [address]- 3137 Sep, [facility] [place] [facility] [address] [id number] [place] [address]- 7970 Sep, [facility] [place] [facility] [address] [id number] [place] [address]- 0561 Sep, [facility] [place] [facility] [address] [id number], [place] [address]- 5802 Sep, [facility] [place] [facility] [address] [id number], [place] [address]- 6824 Sep, [facility] [place] [facility] [address] [id number] [place] [address]- 7895 Sep, [facility] [place] [facility] [address] [id number], [place] [address]- 9124 Aug, [facility] [place] [facility] [address] [id number] [place] [address]- 2474 Aug, [facility] [place] [facility] [address] [id number] [place] [address]- 5133 Aug, [facility] [address] [id number] [place] [address]- 5581 Aug, [facility] [place] [facility] [address] [id number] [place] [address]- 5716 Aug, [facility] [address] [id number] [place] [address]- 4901 Aug, [facility] [address] [id number] [place] [address]- 5138 Jul, 2012 [facility] [address] [id number] [place] [address]- 5435 19 Jul, 2013 [facility] [address] [id number] [place] [address]- 7003 16 Jul, 2013 [facility] [address] [id number] [place] [address]- 9754 Jul, [facility] [address] [id number] [place] [address]- 1796 Jun, [facility] [address] [id number] [place] [address]- 2782 Jun, [facility] [address] [id number] [place] [address]- 7622 Jun, [facility] [place] [facility] [address] [id number] [place] [address]- 2538 Jun, [facility] [address] [id number] [place] [address]- 5672 Jun, [facility] [place] [facility] [address] [id number] [place] [address]- 8249 Jun, [facility] [place] [facility] [address] [id number] [place] [address]- 8658 Jun, [facility] [place] [facility] [address] [id number] [id number] [address]138 May, [facility] [place] [facility] [address] [id number] [place] [address]- 1603 23 May, 2013 [facility] [place] [facility] [address] [id number] [place] [address]- 1758 16 May, 2013 [facility] [place] [facility] [address] [id number] [place] [address]- 0107 15 May, 2013 [facility] [place] [facility] [address] [id number] [place] [address]- 5108 13 May, 2013 [facility] [place] [facility] [address] [id number] [place] [address]- 2038 05 May, 2013 [facility] [place] [facility] [address] [id number] [place] [address]- 2497 03 May, 2013 [facility] [place] [facility] [address] [id number] [place] [address]- 4438 28 Apr, 2013 [facility] [place] [facility] [address] [id number] [place] [address]- 5810 27 Apr, 2013 [facility] [place] [facility] [address] [id number] [place] [address]- 5052 27 Apr, 2013 [facility] [place] [facility] [address] [id number] [place] [address]- 2349 26 Apr, 2013 [facility] [place] [facility] [address] [id number] [place] [address]- 9981 20 Apr, 2013 [facility] [place] [facility] [address] [id number] [place] [address]- 8596 18 Apr, 2013 [facility] [place] [facility] [address] [id number] [place] [address]- 9823 18 Apr, 2013 [facility] [place] [facility] [address] [id number] [place] [address]- 3586 18 Apr, 2013 [facility] [place] [facility] [address] [id number] [place] [address]- 0427 17 Apr, 2013 [facility] [place] [facility] [address] [id number] [place] [address]- 3154 14 Apr, 2013 [facility] [address] [id number] [place] [address]- 5402 14 Apr, 2013 [facility] [place] [facility] [address] [id number] [place] [address]- 9363 11 Apr, 2013 [facility] [address] [id number] [place] [address]- 4284 10 Apr, 2013 [facility] [place] [facility] [address] [id number] [place] [address]- 8741 09 Apr, 2013 [facility] [address] [id number] [place] [address]- 0164 07 Apr, 2013 [facility] [address] [id number] [place] [address]- 6843 06 Apr, 2013 [facility] [address] [id number] [place] [address]- 2614 06 Apr, 2013 [facility] [address] [id number] [place] [address]- 4863 05 Apr, 2013 [facility] [address] [id number] [place] [address]- 5947 Apr, [facility] [address] [id number] [place] [address]- 0670 March, [facility] [address] [id number] [place] [address]- 1730 March, [facility] [place] [facility] [address] [id number] [place] [address]- 4094 March, [facility] [place] [facility] [address] [id number] [place] [address]- 0572 March, [facility] [place] [facility] [address] [id number] [place] [address]- 3632 March, [facility] [place] [facility] [address] [id number] [place] [address]- 2965 March, [facility] [place] [facility] [address] [id number] [place] [address]- 8732 March, [facility] [address] [id number] [place] [address]- 5603 Feb, [facility] [place] [facility] [address] [id number] [place] [address]- 9202 Feb, [facility] [address] [id number] [place] [address]- 3393 27 Jan, 2013 [facility] [place] [facility] [address] [id number] [place] [address]- 7353 18 Jan, 2013 [facility] [place] [facility] [address] [id number] [place] [address]- 7384 15 Jan, 2013 [facility] [address] [id number] [place] [address]- 9830 14 Jan, 2013 [facility] [address] [id number] [place] [address]- 6827 13 Jan, 2013 [facility] [address] [id number] [place] [address]- 6031 12 Jan, 2013 [facility] [place] [facility] [address] [id number] [place] [address]- 5746 11 Jan, 2013 [facility] [address] [id number] [place] [address]- 6955 09 Jan, 2013 [facility] [place] [facility] [address] [id number] [place] [address]- 3705 08 Jan, 2013 [facility] [place] [facility] [address] [id number] [place] [address]- 8076 07 Jan, 2013 [facility] [place] [facility] [address] [id number] [place] [address]- 8084 06 Jan, 2013 [facility] [place] [facility] [address] [id number] [place] [address]- 3338 17 Nov, 2012 [facility] [place] [facility] [address] [id number] [place] [address]- 1831 Oct, [facility] [place] [facility] [address] [id number] [place] [address]- 6245 Oct, [facility] [place] [facility] [address] [id number] [place] [address]- 7336 Oct, [facility] [place] [facility] [address] [facility] [id number] [place] 6751 Oct, [facility] [place] [facility] [address] [id number] [place] [address]- 4063 Sep, [facility] [place] [facility] [address] [id number] [place] [address]- 9788 Sep, [facility] [place] [facility] [address] [id number] [place] [address]- 3348 Sep, [facility] [place] [facility] [address] [facility] [id number] [place] [address]- 5622 Sep, [facility] [place] [facility] [address] [id number], [place] [address]- 7245 Sep, [facility] [place] [facility] [address] [id number], [place] [address]- 2230 Sep, [facility] [place] [facility] [address] [facility] [id number], [place] [address]- 4535 Sep, [facility] [place] [facility] [address] [id number], [place] [address]- 0408 Sep, [facility] [place] [facility] [address] [id number], [place] [address]- 8805 Sep, [facility] [place] [facility] [address] [id number], [place] [address]- 8939 Sep, [facility] [place] [facility] [address] [facility] [id number], [place] [address]- 2941 Sep, [facility] [place] [facility] [address] [facility] [id number], [place] [address]- 0398 Aug, [facility] [place] [facility] [address] [id number] [place] [address]- 9812 Aug, [facility] [place] [facility] [address] [id number] [place] [address]- 7821 04 Aug, 2012 [facility] [place] [facility] [address] [id number] [place] [address]- 3536 28 Jul, 2012 [facility] [place] [facility] [address] [id number] [place] [address]- 4646 25 Jul, 2012 [facility] [place] [facility] [address] [id number] [place] [address]- 3371 19 Jul, 2012 [facility] [place] [facility] [address] [id number] [place] [address]- 4747 17 Jul, 2012 [facility] [place] [facility] [address] [id number] [place] [address]- 0536 20 Jun, 2012 [facility] [place] [facility] [address] [id number] [place] [address]- 3425 16 Jun, 2012 [facility] [place] [facility] [address] [id number] [place] [address]- 4347 15 Jun, 2012 [facility] [place] [facility] [address] [id number] [place] [address]- 0744 15 Jun, 2012 [facility] [place] [facility] [address] [id number] [place] [address]- 2937 13 Jun, 2012 [facility] [place] [facility] [address] [id number] [place] [address]- 2336 March, [facility] [place] [facility] [address] [id number] [place] [address]- 9196 Feb, [facility] [place] [facility] [address] [id number] [place] [address]106 Jan, [facility] [place] [facility] [address] [id number] [place] [address]- 4798 Jan, [facility] [place] [facility] [address] [id number] [place] [address]235 Jan, [facility] [place] [facility] [address] [id number] [place] [address]- 4753 14 Jan, 2012 [facility] [place] [facility] [address] [id number] [place] [address]- 3926 14 Jan, 2012 [facility] [place] [facility] [address] [id number] [place] [address]- 3043 14 Jan, 2012 [facility] [place] [facility] [address] [id number] [place] [address]- 4199 28 Dec, 2011 [facility] [place] [facility] [address] [id number] [place] [address]- 0248 27 Dec, 2011 [facility] [place] [facility] [address] [id number] [place] [address]- 3554 23 Dec, 2011 [facility] [place] [facility] [address] [id number] [place] [address]- 5514 21 Dec, 2011 [facility] [place] [facility] [address] [id number] [place] [address]- 6214 20 Dec, 2011 [facility] [place] [facility] [address] [id number] [place] [address]- 5379 19 Dec, 2011 [facility] [place] [facility] [address] [id number] [place] [address]- 8929 17 Dec, 2011 [facility] [place] [facility] [address] [id number] [place] [address]- 3915 16 Dec, 2011 [facility] [place] [facility] [address] [id number] [place] [address]- 7848 31 Nov, 2011 [facility] [place] [facility] [address] [id number] [place] [address]- 3362 Oct, [facility] [place] [facility] [address] [id number] [place] [address]- 9547 18 Sep, 2011 [facility] [place] [facility] [address] [id number] [place] [address]- 5194 Sep, [facility] [place] [facility] [address] [facility] [id number] [place] [address]- 2546 Sep, [facility] [address] [facility] [id number], [place] [address]- 2546 Sep, [facility] [address] [id number], [place] [address]- 2546 Sep, [facility] [address] [facility] [id number], [place] [address]- 2546 Sep, [facility] [address] [facility] [id number], [place] [address]- 2546 Jan, [facility] [address] [facility] [id number], [place] [address]- 6544 Apr, IMMUNIZATIONS No Known Immunizations SOCIAL HISTORY Never Assessed REASON FOR VISIT PLAN OF CARE VITAL SIGNS MEDICATIONS Medication Instructions Dosage Frequency Start Date End Date Duration Status Clindamycin HCl 300 MG Orally every 6 hrs 1 capsule 6h 10 days Active RESULTS No Results PROCEDURES No [...]
--- OUTSIDE RECORDS SUMMARY | 2018-08-05 20:23 | XMS REPORT ---
Author Author TOMASZ MARGARITA [facility] Address [address] [place] [address] Care Team Providers Care Rig Builder Helper Name Role Phone TOMASZ, MARGARITA Unavailable PROBLEMS Type Condition ICD9-CM Code CBU68-YB Code Onset Dates Condition Status SNOMED Code Problem Generalized anxiety disorder F41.1 Active 03701226 Problem Acute non intractable tension-type headache G44.209 Active 364328920 Problem Acute right-sided low back pain with right-sided sciatica M54.41 Active 722259080 Problem Post traumatic stress disorder F43.10 Active 27483559 Problem Bipolar disorder, current episode mixed, moderate F31.62 Active 336910036 Problem Endometriosis N80.9 Active 164951160 Problem Borderline personality disorder F60.3 Active 41959579 ALLERGIES Substance Reaction Event Type Date Status Thioridazine HCl tachycardia Drug Allergy Apr, Active Pristiq Unknown Drug Allergy Apr, Active Penicillin V Potassium rash Drug Allergy Apr, Active Diclofenac Sodium nausea Drug Allergy Apr, Active Depakote fatigue Drug Allergy Apr, Active ENCOUNTERS Encounter Location Date Diagnosis [facility] [id number] [address] Jul, [facility] [id number] [place] [address] [id number] Jun, [facility] [id number] [place] [address] 22397- 9166 Jun, Bipolar disorder, current episode mixed, moderate F31.62 [facility] [id number] [place] [address] 67551- 4751 May, Palpitations R00.2 [facility] [address] [address] May, Palpitations R00.2 [facility] [id number] [place] [address] 62413- 5642 12 May, 2018 Palpitations R00.2 and Frequent bowel movements R19.4 [facility] [id number] [place] [address] 69310- 4763 05 May, 2018 Bipolar disorder, current episode mixed, moderate F31.62 ; Post traumatic stress disorder F43.10 and Borderline personality disorder F60.3 [facility] [id number] [place] [address] [id number] 15 Apr, 2018 Dental examination Z01.20 [facility] [id number] [place] [address] 53036 -8831 15 Apr, 2018 [facility] [id number] [place] [address] 63430- 5146 15 Apr, 2018 Dental examination Z01.20 [facility] [id number] [place] [address] 82942 -7511 15 Apr, 2018 Tooth pain K08.89 [facility] [id number] [place] [address] 57889- 6824 06 Apr, 2018 Bipolar disorder, current episode mixed, moderate F31.62 ; Post traumatic stress disorder F43.10 and Borderline personality disorder F60.3 [facility] [id number] [place] [address] 56857 -3283 March, Abdominal pain R10.9 ; UTI symptoms R39.9 and Other microscopic hematuria R31.29 [facility] [id number] [place] [address] 21106- 3865 March, [facility] [id number] [place] [address] 77127- 7455 March, Bipolar disorder, current episode mixed, moderate F31.62 ; Post traumatic stress disorder F43.10 and Borderline personality disorder F60.3 [facility] [id number] [place] [address] 49740- 4901 Feb, Encounter for immunization Z23 [facility] [id number] [place] [address] 99447- 5495 16 Feb, 2018 Bipolar disorder, current episode mixed, moderate F31.62 ; Post traumatic stress disorder F43.10 and Borderline personality disorder F60.3 [place] [id number] [place] [address] 35369- 2310 11 Feb, 2018 Bipolar disorder, current episode mixed, moderate F31.62 ; Post traumatic stress disorder F43.10 ; Borderline personality disorder F60.3 and 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 [place] [address] [address] 82049- 9229 30 Jan, 2018 Encounter for immunization Z23 [facility] [address] 56909- 6347 Jan, [place] [address] 48371- 5922 Jan, Bipolar disorder, current episode mixed, moderate F31.62 [facility] [id number] [place] [address] 04540 -2205 Jan, Lumbar back pain M54.5 [place] [address] 82846- 7814 Dec, Low back pain M54.5 [place] [address] 61717- 1188 13 Dec, 2017 Bipolar disorder, current episode mixed, moderate F31.62 [facility] [id number] [place] [address] 37650- 4241 Dec, Generalized anxiety disorder F41.1 and Bipolar disorder, current episode mixed, moderate F31.62 [facility] [id number] [place] [address] 61799 -2426 Nov, Acute non intractable tension-type headache G44.209 [place] [address] 00643- 2171 Nov, Bipolar disorder, current episode mixed, moderate F31.62 ; Post traumatic stress disorder F43.10 and Borderline personality disorder F60.3 [place] [address] 93331- 8415 Nov, Bipolar disorder, current episode mixed, moderate F31.62 [facility] [id number] [place] [address] 71034 -9307 Nov, Abdominal pain R10.9 ; History of PCOS Z87.42 ; History of endometriosis Z87.42 and Pelvic pain R10.2 [place] [address] 46154- 0351 Nov, [facility] [place] [address] 65055 -5420 Oct, History of PCOS Z87.42 ; History of endometriosis Z87.42 and Pain R52 [place] [address] 17243- 5874 Oct, Bipolar disorder, current episode mixed, moderate F31.62 ; Post traumatic stress disorder F43.10 and Borderline personality disorder F60.3 [place] [id number] [place] [address] 75760- 9480 Oct, Bipolar disorder, current episode mixed, moderate F31.62 [place] [id number] [place] [address] 47162- 6753 Sep, Bipolar disorder, current episode mixed, moderate F31.62 ; Post traumatic stress disorder F43.10 ; Borderline personality disorder F60.3 and 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 [place] [id number] [place] [address] 35395- 6079 Sep, Bipolar disorder, current episode mixed, moderate F31.62 [facility] [id number] [place] [address] 47027 -0654 Sep, Endometriosis N80.9 and Acute right-sided low back pain with right-sided sciatica M54.41 [facility] [id number] [place] [address] 96552- 9446 Aug, [facility] [id number] [place] [address] 87756- 5491 Aug, Bipolar disorder, current episode mixed, moderate F31.62 ; Post traumatic stress disorder F43.10 and Borderline personality disorder F60.3 [place] [id number] [place] [address] 60624- 6976 11 Aug, 2017 Bipolar disorder, current episode mixed, moderate F31.62 ; Post traumatic stress disorder F43.10 and Borderline personality disorder F60.3 [place] [id number] [place] [address] 26163- 4312 13 Jul, 2017 Bipolar disorder, current episode mixed, moderate F31.62 ; Post traumatic stress disorder F43.10 and Borderline personality disorder F60.3 [facility] [id number] [place] [address] 31869 -3231 11 Jul, 2017 Pharyngitis, unspecified etiology J02.9 and Streptococcal pharyngitis J02.0 [place] [id number] [place] [address] 35407- 4480 16 Jun, 2017 Bipolar disorder, current episode mixed, moderate F31.62 ; Post traumatic stress disorder F43.10 and Borderline personality disorder F60.3 [place] [id number] [place] [address] 87267- 3137 May, [place] [id number] [place] [address] 28149- 2669 May, [facility] [id number] [place] [address] 58887- 2937 May, Bipolar disorder, current episode mixed, moderate F31.62 and Generalized anxiety disorder F41.1 [place] [id number] [place] [address] 34140- 4774 March, Bipolar disorder, current episode mixed, moderate F31.62 and Generalized anxiety disorder F41.1 [facility] [address], [place] [address] 57[address] March, Pelvic pain R10.2 [facility] [id number] [place] [address] March, [facility] [id number] [place] [address] 20489- 0954 Feb, Bipolar disorder, current episode mixed, moderate F31.62 and Generalized anxiety disorder F41.1 [facility] [id number] [place] [address] 45877- 3443 Jan, [facility] [id number] [place] [address] 84546- 5099 Jan, Bipolar disorder, current episode mixed, moderate F31.62 [facility] [id number] [place] [address] 74297- 2881 Jan, Bipolar disorder, current episode mixed, moderate F31.62 [facility] [id number] [place] [address] 65034- 5212 Jan, Bilateral low back pain without sciatica M54.5 [facility] [id number] [place] [address] [id number] Jan, Dental caries K02.9 and Dental examination Z01.20 [facility] [id number] [place] [address] [id number] Jan, Encounter for dental examination and cleaning without abnormal findings Z01.20 [facility] [address] [place] [address] 48436- 9236 Jan, Bipolar disorder, current episode mixed, moderate F31.62 and Generalized anxiety disorder F41.1 [facility] [address] [place] [address] 45172- 1879 Dec, [facility] [address] [place] [address] 45340- 1751 Dec, Bipolar disorder, current episode mixed, moderate F31.62 and Generalized anxiety disorder F41.1 [facility] [address] [place] [address] 68018- 0654 03 Dec, 2016 Other fatigue R53.83 and Orthostatic hypotension I95.1 [facility] [address] [id number] Nov, Dental examination Z01.20 [facility] [address] 99306 -0158 Nov, Bronchitis J40 [facility] [id number] [place] [address] 77947- 6922 Oct, Generalized anxiety disorder F41.1 [place] [id number] [place] [address] 70971- 8295 Sep, Bipolar disorder, current episode mixed, moderate F31.62 and Generalized anxiety disorder F41.1 [place] [id number] [place] [address] 73825- 1129 Sep, Bipolar disorder, current episode mixed, moderate F31.62 and Generalized anxiety disorder F41.1 [facility] [id number] [place] [address] 21586 -4781 08 Jul, 2016 Upper respiratory tract infection, unspecified type J06.9 [place] [id number] [place] [address] 72134- 9661 Jun, Bipolar disorder, current episode mixed, moderate F31.62 and Generalized anxiety disorder F41.1 [facility] [id number] [place] [address] 46958- 6104 Apr, [place] [address] 74113- 3209 02 Apr, 2016 Encounter for test, result positive Z32.01 [facility] [id number] [place] [address] 79660- 6337 March, [facility] [address] 29727- 4756 March, Bipolar disorder, current episode mixed, moderate F31.62 and Generalized anxiety disorder F41.1 [facility] [address] [place] [address] 24941- 2088 March, Bipolar disorder, current episode mixed, moderate F31.62 and Generalized anxiety disorder F41.1 [facility] [id number] [place] [address] 34994- 3476 March, [facility] [id number] [place] [address] 37165- 9346 March, [facility] [id number] [place] [address] 00347- 2980 Feb, [facility] [id number] [place] [address] 28686- 0089 Feb, [facility] [id number] [place] [address] 18676- 6086 Feb, Bipolar disorder, current episode mixed, moderate F31.62 and Generalized anxiety disorder F41.1 [facility] [id number] [place] [address] 20661- 0987 Jan, Abdominal pain R10.9 [facility] [id number] [place] [address] 36928- 1238 14 Jan, 2016 [facility] [id number] [place] [address] 41113- 5285 Dec, Dental examination Z01.20 [facility] [id number] [place] [address] 17444- 3577 Dec, Dental examination Z01.20 and Dental caries K02.9 [facility] [id number] [place] [address] 20633- 5062 15 Dec, 2015 Bipolar disorder, current episode mixed, moderate F31.62 and Generalized anxiety disorder F41.1 [facility] [id number] [place] [address] 11913- 6213 Dec, [facility] [address] [place] [address] 93341- 2882 Nov, Bipolar disorder, current episode mixed, moderate F31.62 ; Generalized anxiety disorder F41.1 and Seizure-like activity R56.9 [place] [id number] [place] [address] 88259- 6020 Oct, [place] [address] 42313- 2453 Oct, Bipolar disorder, current episode mixed, moderate F31.62 [place] [id number] [place] [address] 19911- 8715 Oct, Well woman exam Z01.419 ; Encounter [...] Tobacco use Z72.0 and Hot flashes N95.1 [place] [id number] [place] [address] 37754- 5035 Oct, Seizure-like activity R56.9 and Irregular periods N92.6 [place] [id number] [place] [address] 20191- 5467 Oct, Bipolar disorder, current episode mixed, moderate F31.62 ; Generalized anxiety disorder F41.1 and Underweight R63.6 [place] [id number] [place] [address] 87231- 2391 Oct, [place] [id number] [place] [address] 96007- 6664 Oct, Generalized anxiety disorder F41.1 and Unspecified mood [ affective] disorder F39 [facility] [address] [place] [address] -0896 Oct, Back pain M54.9 and Anxiety F41.9 [facility] [address] 07180- 7915 Oct, [facility] [id number] [place] [address] 57833 -2514 Sep, Arm pain, left M79.602 [facility] [address] 16474- 0835 Sep, [facility] [address] [id number] Sep, Dental examination Z01.20 and Dental caries K02.9 [facility] [id number] [place] [address] 03886- 4778 Sep, Generalized anxiety disorder F41.1 and Unspecified episodic mood disorder F39 [facility] [address] 92925- 3348 Sep, Bilateral low back pain without sciatica M54.5 and Seizure- like activity R56.9 [facility] [address] 13740- 5713 Aug, [facility] [id number] [place] [address] 32492- 0361 Aug, [facility] [address] 48204- 7334 Aug, [facility] [id number] [place] [address] 42081- 0278 Aug, Visual changes H53.9 and Bilateral low back pain without sciatica M54.5 [facility] [id number] [place] [address] 32650- 7741 Jul, [facility] [id number] [place] [address] 67325- 5630 Jun, Bipolar I disorder, most recent episode (or current) mixed, moderate 296.62 ; Generalized anxiety disorder 300.02 and High risk medication use V58.69 [facility] [address] [place] [address] 03789- 2044 Jun, [facility] [id number] [place] [address] 47510- 3577 May, [facility] [id number] [place] [address] 89424- 6078 May, Bipolar I disorder, most recent episode (or current) mixed, moderate 296.62 and Generalized anxiety disorder 300.02 [facility] [id number] [place] [address] [id number] May, Dental examination V72.2 [facility] [id number] [place] [address] 78796- 0818 March, Bipolar I disorder, most recent episode (or current) mixed, moderate 296.62 and Generalized anxiety disorder 300.02 [facility] [id number] [place] [address] 87099- 2763 March, [facility] [id number] [place] [address] 14155- 1699 March, [facility] [id number] [place] [address] 52072- 0657 March, Underweight 783.22 ; Hand pain, right 729.5 and Reflux gastritis 535.40 [facility] [id number] [place] [address] 40253- 9931 Feb, [facility] [id number] [place] [address] 86138- 2083 Feb, [facility] [id number] [place] [address] 95343- 9940 Jan, [facility] [id number] [place] [address] 12669- 5122 Jan, [facility] [address] 52594- 1646 16 Jan, 2015 [facility] [place] [facility] [address] [id number] [place] [address]- 7577 16 Jan, 2015 [facility] [place] [facility] [address] [id number] [place] [address]- 1863 Jan, [facility] [place] [facility] [address] [facility] [id number] [place] [address]- 9020 Jan, [facility] [place] [facility] [address] [id number] [place] [address]- 9718 Jan, [facility] [place] [facility] [address] [id number] [place] [address]- 1307 Jan, [facility] [place] [facility] [address] [facility] [id number] [place] [address]- 8078 Jan, [facility] [place] [facility] [address] [facility] [id number] [place] [address]- 6180 Jan, [facility] [place] [facility] [address] [facility] [id number], [place] [address]- 4426 Jan, [facility] [place] [facility] [address] [facility] [id number] [place] [address]- 6841 Jan, [facility] [place] [facility] [address] [facility] [id number] [place] [address]- 9360 Dec, [facility] [place] [facility] [address] [id number], [place] [address]- 4553 Dec, 2014 [facility] [place] [facility] [address] [facility] [id number], [place] [address]- 9557 Dec, 2014 [facility] [place] [facility] [address] [id number] [place] [address]- 5522 Dec, 2014 [facility] [place] [facility] [address] [facility] [id number], [place] [address]- 1309 18 Dec, 2014 [facility] [place] [facility] [address] [facility] [id number][place] [address]- 6099 17 Dec, 2014 [facility] [place] [facility] [address] [id number] [place] [address]- 6939 Dec, 2014 [facility] [place] [facility] [address] [id number] [place] [address]- 7488 Dec, 2014 [facility] [place] [facility] [address] [id number] [place] [address]- 6212 Dec, 2014 [facility] [place] [facility] [address] [id number] [place] [address]- 4364 Dec, 2014 [facility] [place] [facility] [address] [id number] [place] [address]- 7336 Dec, 2014 [facility] [place] [facility] [address] [id number] [place] [address]- 4263 Dec, 2014 [facility] [place] [facility] [address] [facility] [id number] [place] [address]- 9482 Dec, 2014 [facility] [place] [facility] [address] [id number], [place] [address]- 9425 Dec, 2014 [facility] [place] [facility] [address] [id number] [place] [address]- 0840 Dec, 2014 [facility] [place] [facility] [address] [facility] [id number] [place] [address]- 5934 Dec, 2014 [facility] [place] [facility] [address] [facility] [id number][place] [address]- 4616 Dec, 2014 [facility] [place] [facility] [address] [id number], [place] [address]- 6250 Dec, 2014 [facility] [place] [facility] [address] [id number] [place] [address]- 6489 Dec, 2014 [facility] [place] [facility] [address] [facility] [id number] [place] [address]- 6607 Nov, [facility] [place] [facility] [address] [facility] [id number] [place] [address]- 7703 Nov, [facility] [place] [facility] [address] [facility] [id number] [place] [address] 2546 Nov, [facility] [place] [facility] [address] [id number] [place] [address]- 8576 Nov, [facility] [place] [facility] [address] [id number] [place] [address]- 2546 Nov, [facility] [place] [facility] [address] [id number] [place] [address]- 2546 Nov, [facility] [place] [facility] [address] [facility] [id number] [place] [id number] Nov, [facility] [place] [facility] [address] [id number] [place] [address] Nov, [facility] [place] [facility] [address] [id number] [place] [address] Nov, [facility] [place] [facility] [id number] [id number] Nov, [facility] [place] [facility] [address] [id number] [place] [address] Nov, [facility] [place] [facility] [address] [id number] [place] [address] Nov, [facility] [place] [facility] [address] [id number] [place] [address] Oct, [facility] [place] [facility] [address] [id number] [place] [address] Oct, [facility] [place] [facility] [address] [id number] [place] [address] Oct, [facility] [place] [facility] [address] [id number] [place] [address] Oct, [facility] [place] [facility] [address] [id number] [place] [address] Oct, [facility] [place] [facility] [address] [id number] [place] [address] Oct, [facility] [place] [facility] [address] [id number] [place] [address] Oct, [facility] [place] [facility] [address] [id number] [place] [address] Oct, [facility] [place] [facility] [address] [id number] [place] [id number] Oct, [facility] [place] [facility] [address] [id number] [place] [address] Oct, [facility] [place] [facility] [address] [id number] [place] [address] Oct, [facility] [place] [facility] [address] [id number] [place] [address] Oct, [facility] [place] [facility] [address] [id number] [place] [address] Sep, [facility] [place] [facility] [address] [id number] [place] [address] Sep, [facility] [place] [facility] [address] [id number] [place] [address] Sep, [facility] [place] [facility] [address] [id number] [place] [address] Sep, [facility] [place] [facility] [address] [id number] [place] [address] Sep, [facility] [place] [facility] [address] [id number] [place] [address] Sep, [facility] [place] [facility] [address] [id number] [place] [address] Sep, [facility] [place] [facility] [address] [id number] [place] [address] Sep, [facility] [place] [facility] [address] [id number] [place] [address] Aug, [facility] [place] [facility] [address] [id number] [place] [address] 2206 Aug, [facility] [place] [facility] [address] [id number] [place] [address] 4920 Aug, [facility] [place] [facility] [address] [id number] [place] [address] 9733 Aug, [facility] [place] [facility] [address] [id number] [place] [address]- 5475 Aug, [facility] [place] [facility] [address] [id number] [place] [address] 2072 Aug, [facility] [place] [facility] [address] [id number] [place] [address] 5832 Aug, [facility] [place] [facility] [address] [id number] [place] [address]- 4250 Aug, [facility] [place] [facility] [address] [id number] [place] [address]- 0665 Aug, [facility] [place] [facility] [address] [id number] [place] [address]- 4087 Aug, [facility] [place] [facility] [address] [id number] [place] [address]- 5351 Aug, [facility] [place] [facility] [address] [id number] [place] [address]- 7477 Aug, [facility] [place] [facility] [address] [id number], [place] [address] Aug, [facility] [place] [facility] [address] [id number], [place] [address] Jul, 2013 [facility] [place] [facility] [address] [id number] [place] [address]- 0438 22 Jul, 2014 [facility] [place] [facility] [address] [id number] [place] [address]- 8301 Jul, [facility] [place] [facility] [address] [id number] [place] [address]- 9705 19 Jul, 2013 [facility] [place] [facility] [address] [id number] [place] [address]- 5296 Jun, [facility] [place] [facility] [address] [id number] [place] [address]- 8399 Jun, [facility] [place] [facility] [address] [id number] [place] [address]- 2637 Jun, [facility] [place] [facility] [address] [id number] [place] [address]- 5054 Jun, [facility] [place] [facility] [address] [id number] [place] [address]- 2668 Jun, [facility] [place] [facility] [address] [id number] [place] [address]- 8005 Jun, [facility] [place] [facility] [address] [id number] [place] [address]- 3868 May, [facility] [place] [facility] [address] [id number] [place] [address]- 4560 May, [facility] [place] [facility] [address] [id number] [place] [address]- 0512 May, [facility] [place] [facility] [address] [id number] [place] [address]- 2628 May, [facility] [place] [facility] [address] [id number] [place] [address]- 3119 Apr, [facility] [place] [facility] [address] [id number] [place] [address]- 8301 Apr, [facility] [place] [facility] [address] [id number] [place] [address]- 3089 March, [facility] [place] [facility] [address] [id number] [place] [address]- 5247 March, [facility] [place] [facility] [address] [id number] [place] [address]- 8333 March, [facility] [place] [facility] [address] [id number] [place] [address]- 5349 March, [facility] [place] [facility] [address] [id number] [place] [address]- 2347 March, [facility] [place] [facility] [address] [id number] [place] [address]- 2135 March, [facility] [place] [facility] [address] [id number] [place] [address]- 9785 Feb, [facility] [place] [facility] [address] [id number] [place] [address]- 3373 Feb, [facility] [place] [facility] [address] [id number] [place] [address]- 7452 Dec, [facility] [place] [facility] [address] [id number] [place] [address]- 8113 Dec, [facility] [place] [facility] [address] [id number] [place] [address]- 9086 Nov, [facility] [place] [facility] [address] [id number] [place] [address]- 8458 Nov, [facility] [place] [facility] [address] [id number] [place] [address]- 1284 Sep, [facility] [place] [facility] [address] [id number], [place] [address]- 95[address] Sep, [facility] [place] [facility] [address] [id number], [place] [address]- 9076 Sep, [facility] [place] [facility] [address] [id number], [place] [address]- 5428 Sep, [facility] [place] [facility] [address] [id number] [place] [address]- 0067 Sep, [facility] [place] [facility] [address] [id number] [place] [address]- 0480 Sep, [facility] [place] [facility] [address] [id number], [place] [address]- 0770 Sep, [facility] [place] [facility] [address] [id number][place] [address]- 9301 Aug, [facility] [place] [facility] [address] [id number] [place] [address]- 2945 Aug, [facility] [place] [facility] [address] [id number] [place] [address]- 8454 Aug, [facility] [place] [facility] [address] [id number] [place] [address]- 5511 Aug, [facility] [place] [facility] [address] [id number] [place] [address]- 8605 Aug, [facility] [place] [facility] [address] [id number] [place] [address]- 6058 Aug, [facility] [place] [facility] [address] [id number] [place] [address]- 9253 Jul, [facility] [place] [facility] [address] [id number] [place] [address]- 8319 Jul, [facility] [place] [facility] [address] [id number] [place] [address]- 8179 16 Jul, 2013 [facility] [place] [facility] [address] [id number] [place] [address]- 6656 Jul, [facility] [place] [facility] [address] [id number] [place] [address]- 7311 Jun, [facility] [place] [facility] [address] [id number] [place] [address]- 4827 Jun, [facility] [place] [facility] [address] [id number], [place] [address]- 6230 Jun, [facility] [place] [facility] [address] [id number] [place] [address]- 5168 Jun, [facility] [place] [facility] [address] [id number] [place] [address]- 6944 Jun, [facility] [place] [facility] [address] [id number] [place] [address]- 9360 Jun, [facility] [place] [facility] [address] [id number] [place] [address]- 1084 Jun, [facility] [place] [facility] [address] [id number] [place] [address]- 6496 May, [facility] [place] [facility] [address] [id number] [place] [address]- 4465 May, [facility] [place] [facility] [address] [id number] [place] [address]- 6060 16 May, 2013 [facility] [place] [facility] [address] [id number] [place] [address]- 4868 15 May, 2013 [facility] [place] [facility] [address] [id number] [place] [address]- 5371 May, [facility] [place] [facility] [address] [id number] [place] [address]- 1050 May, [facility] [place] [facility] [address] [id number] [place] [address]- 5404 May, [facility] [place] [facility] [address] [id number] [place] [address]- 4674 Apr, [facility] [place] [facility] [address] [id number] [place] [address]- 2439 Apr, [facility] [place] [facility] [address] [id number] [place] [address]- 9638 Apr, [facility] [place] [facility] [address] [id number] [place] [address]- 7121 Apr, [facility] [place] [facility] [address] [id number] [place] [address]- 5171 Apr, [facility] [place] [facility] [address] [id number] [place] [address]- 2444 Apr, [facility] [place] [facility] [address] [id number] [place] [address]24 Apr, [facility] [place] [facility] [address] [id number] [place] [address]- 2738 18 Apr, 2013 [facility] [place] [facility] [address] [id number] [place] [address]- 9610 17 Apr, 2013 [facility] [place] [facility] [address] [id number] [place] [address]- 2136 14 Apr, 2013 [facility] [place] [facility] [address] [id number] [place] [address]- 8321 14 Apr, 2013 [facility] [place] [facility] [address] [id number] [place] [address]- 6578 11 Apr, 2013 [facility] [place] [facility] [address] [id number] [place] [address]- 4071 10 Apr, 2013 [facility] [place] [facility] [address] [id number] [place] [address]- 6975 09 Apr, 2013 [facility] [place] [facility] [address] [id number] [place] [address]- 4881 07 Apr, 2013 [facility] [place] [facility] [address] [id number] [place] [address]- 6947 06 Apr, 2013 [facility] [place] [facility] [address] [id number] [place] [address]- 1717 06 Apr, 2013 [facility] [place] [facility] [address] [id number] [place] [address]- 7605 05 Apr, 2013 [facility] [place] [facility] [address] [id number], [place] [address]- 7493 Apr, [facility] [place] [facility] [address] [id number], [place] [address]- 2598 March, [facility] [place] [facility] [address] [id number] [place] [address]- 1058 March, [facility] [place] [facility] [address] [id number] [place] [address]- 5715 March, [facility] [place] [facility] [address] [id number] [place] [address]- 6572 March, [facility] [place] [facility] [address] [id number] [place] [address]- 6703 13 Mar, 2013 [facility] [address] [id number] [place] [address]- 2495 March, [facility] [address] [id number] [place] [address]656 March, [facility] [address] [id number] [place] [address]- 5439 Feb, [facility] [address] [id number] [place] [address]- 5843 Feb, [facility] [address] [id number] [place] [address]- 6289 27 Jan, 2013 [facility] [address] [id number] [place] [address]- 9733 18 Jan, 2013 [facility] [address] [id number] [place] [address]- 5868 15 Jan, 2013 [facility] [address] [id number] [place] [address]- 1943 14 Jan, 2013 [facility] [address] [id number] [place] [address]- 0827 13 Jan, 2013 [facility] [address] [id number] [place] [address]- 2616 12 Jan, 2013 [facility] [address] [id number] [place] [address]- 8499 11 Jan, 2013 [facility] [place] [facility] [address] [id number] [place] [address]- 1722 09 Jan, 2013 [facility] [place] [facility] [address] [id number] [place] [address]- 2381 08 Jan, 2013 [facility] [place] [facility] [address] [id number] [place] [address]- 9067 07 Jan, 2013 [facility] [address] [id number] [place] [address]- 5574 Jan, [facility] [place] [facility] [address] [id number] [place] [address]- 8593 Nov, [facility] [place] [facility] [address] [id number] [place] [address]- 4095 Oct, [facility] [place] [facility] [address] [id number] [place] [address]- 3108 Oct, [facility] [place] [facility] [address] [id number] [place] [address]- 9541 Oct, [facility] [place] [facility] [address] [id number] [place] [address]- 4728 Oct, [facility] [place] [facility] [address] [id number] [place] [address]- 3550 Sep, [facility] [place] [facility] [address] [id number] [place] [address]- 6408 Sep, [facility] [place] [facility] [address] [id number] [place] [address]- 2508 Sep, [facility] [place] [facility] [address] [id number] [place] [address]- 1394 Sep, [facility] [place] [facility] [address] [id number] [place] [address]- 1159 Sep, [facility] [place] [facility] [address] [id number] [place] [address]- 3853 Sep, [facility] [place] [facility] [address] [id number] [place] [address]- 8180 Sep, [facility] [place] [facility] [address] [id number] [place] [address]- 6131 Sep, [facility] [place] [facility] [address] [id number] [place] [address]- 7244 Sep, [facility] [place] [facility] [address] [id number] [place] [address]- 6486 Sep, [facility] [place] [facility] [address] [id number] [place] [address]- 8815 Sep, [facility] [place] [facility] [address] [id number] [place] [address]- 3674 Aug, [facility] [place] [facility] [address] [id number] [place] [address]- 3656 Aug, [facility] [place] [facility] [address] [id number] [place] [address]- 3396 Aug, [facility] [place] [facility] [address] [id number] [place] [address]- 8113 28 Jul, 2012 [facility] [place] [facility] [address] [id number] [place] [address]- 6115 25 Jul, 2012 [facility] [place] [facility] [address] [id number] [place] [address]- 3013 19 Jul, 2012 [facility] [place] [facility] [address] [id number] [place] [address]- 2797 17 Jul, 2012 [facility] [place] [facility] [address] [id number] [place] [address]- 5121 20 Jun, 2012 [facility] [place] [facility] [address] [id number] [place] [address]- 7312 16 Jun, 2012 [facility] [place] [facility] [address] [id number] [place] [address]- 6268 Jun, [facility] [place] [facility] [address] [id number] [place] [address]- 7089 Jun, [facility] [place] [facility] [address] [id number] [place] [address]- 2826 Jun, [facility] [place] [facility] [address] [id number] [place] [address]- 3522 March, [facility] [place] [facility] [address] [id number] [place] 6994 Feb, [facility] [place] [facility] [address] [id number] [place] [address]- 8338 Jan, [facility] [place] [facility] [address] [id number] [place] [address]- 5336 27 Jan, 2012 [facility] [place] [facility] [address] [id number] [place] [address]- 4790 22 Jan, 2012 [facility] [place] [facility] [address] [id number] [place] [address]- 7376 14 Jan, 2012 [facility] [place] [facility] [address] [id number] [place] [address]- 1586 14 Jan, 2012 [facility] [place] [facility] [address] [id number] [place] [address]- 6334 14 Jan, 2012 [facility] [place] [facility] [address] [id number] [place] [address]- 9517 28 Dec, 2011 [facility] [place] [facility] [address] [id number] [place] [address]- 6670 27 Dec, 2011 [facility] [place] [facility] [address] [id number] [place] [address]- 7235 23 Dec, 2011 [facility] [place] [facility] [address] [id number] [place] [address]- 0302 21 Dec, 2011 [facility] [place] [facility] [address] [id number] [place] [address]- 1522 20 Dec, 2011 [facility] [place] [facility] [address] [id number] [place] [address]- 8296 19 Dec, 2011 [facility] [place] [facility] [address] [id number] [place] [address]- 9473 17 Dec, 2011 [facility] [place] [facility] [address] [id number] [place] [address]- 7428 16 Dec, 2011 [facility] [place] [facility] [address] [id number] [place] [address]- 8300 31 Nov, 2011 [facility] [place] [facility] [address] [id number] [place] [address]- 0251 13 Oct, 2011 [facility] [place] [facility] [address] [id number], [place] [address]- 6441 Sep, [facility] [address] [facility] [id number], [place] [address]- 0204 Sep, [facility] [address] [id number], [place] [address]- 0284 Sep, [facility] [id number], [place] [address]- 2859 Sep, [facility] [id number] 6424 Sep, [facility] [address] [id number], [place] [address]- 8873 Sep, [facility] [address] [id number], [place] [address]- 4639 Jan, [facility] [address] [id number], [place] [address]- 1342 Apr, IMMUNIZATIONS No Known Immunizations SOCIAL HISTORY Never Assessed REASON FOR VISIT f/caitlyn-Monica GR, PDM PLAN OF CARE Activity Details Follow Up 4 Weeks Reason: f/u VITAL SIGNS Height 66 in 2018-04-18 Weight 131.6 lbs 2018-04-18 Heart Rate 84 bpm 2018-04-18 Respiratory Rate 18 2018-04-18 BMI 21.24 kg/m2 2018-04-18 Blood pressure systolic 124 mmHg 2018-04-18 Blood pressure diastolic 58 mmHg 2018-04-18 MEDICATIONS Medication Instructions Dosage Frequency Start Date End Date Duration Status Abilify 15 mg Orally Once a day 1/2 tablet 24h Feb, Active Klonopin 0.5 MG Orally 4 times a day as needed 1 tablet Aug, 30 days Active Ibuprofen 800 MG Orally Three times a day 1 tablet with food or milk as needed 8h March, Active Oxycodone-Acetaminophen 10-325 MG Orally every 4 hrs 1 tablet as needed 4h Active Remeron 45 MG Orally Once a day at bedtime 1 tablet March, Active Lamictal 200 mg Orally Once a [...] 2009 most recent admission Hospitalization History [facility]; overdose 2010 Hospitalization History child 11/29/2016
--- OUTSIDE RECORDS SUMMARY | 2018-08-05 20:24 | XMS REPORT ---
Author Author FLO GONZALEZ [facility] Address [address] [place] [address] Care Team Providers Care Traffic Workforce Representative Name Role Phone BRYANTima FLO Unavailable PROBLEMS Type Condition ICD9-CM Code [id number] Code Onset Dates Condition Status SNOMED Code Problem Generalized anxiety disorder F41.1 Active 92661513 Problem Acute non intractable tension-type headache G44.209 Active 220314498 Problem Acute right-sided low back pain with right-sided sciatica M54.41 Active 364566358 Problem Post traumatic stress disorder F43.10 Active 19280237 Problem Bipolar disorder, current episode mixed, moderate F31.62 Active 462565511 Problem Endometriosis N80.9 Active 253390498 Problem Borderline personality disorder F60.3 Active 44994672 ALLERGIES No Information ENCOUNTERS Encounter Location Date Diagnosis [facility] [id number] [place] [address] 27910- 9862 Jul, [facility] [id number] [place] [address] [id number] Jun, [facility] [id number] [place] [address] 40851- 7043 Jun, Bipolar disorder, current episode mixed, moderate F31.62 [facility] [id number] [place] [address] 92391- 8794 May, Palpitations R00.2 [facility] [address] [address]18- 2761 May, Palpitations R00.2 [facility] [id number] [place] [address] 98202- 5653 May, Palpitations R00.2 and Frequent bowel movements R19.4 [facility] [address] [place] [address] 7780 05 May, 2018 Bipolar disorder, current episode mixed, moderate F31.62 ; Post traumatic stress disorder F43.10 and Borderline personality disorder F60.[address] [facility] [address] [id number] 15 Apr, 2018 Dental examination Z01.20 [facility] [id number] [place] [address] 02108 -9292 15 Apr, 2018 [facility] [id number] [place] [address] 42769- 4389 15 Apr, 2018 Dental examination Z01.20 [facility] [id number] [place] [address] 21200 -6872 15 Apr, 2018 Tooth pain K08.89 [facility] [id number] [place] [address] 66160- 6706 06 Apr, 2018 Bipolar disorder, current episode mixed, moderate F31.62 ; Post traumatic stress disorder F43.10 and Borderline personality disorder F60.3 [facility] [id number] [place] [address] 40657 -9818 March, Abdominal pain R10.9 ; UTI symptoms R39.9 and Other microscopic hematuria R31.29 [facility] [id number] [place] [address] 79380- 1078 March, [facility] [id number] [place] [address] 37468- 8575 March, Bipolar disorder, current episode mixed, moderate F31.62 ; Post traumatic stress disorder F43.10 and Borderline personality disorder F60.3 [facility] [id number] [place] [address] 24195- 7929 Feb, Encounter for immunization Z23 [facility] [id number] [place] [address] 87033- 5497 Feb, Bipolar disorder, current episode mixed, moderate F31.62 ; Post traumatic stress disorder F43.10 and Borderline personality disorder F60.3 [facility] [id number] [place] [address] 97006- 6794 Feb, Bipolar disorder, current episode mixed, moderate F31.62 ; Post traumatic stress disorder F43.10 ; Borderline personality disorder F60.3 and Other care home (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 Z79.899 [facility] [id number] [place] [address] 88822- 4179 30 Jan, 2018 Encounter for immunization Z23 [facility] [address] 65962- 7296 Jan, [place] [facility] [address] 50315- 6641 Jan, Bipolar disorder, current episode mixed, moderate F31.62 [facility] [address] 84688 -3683 Jan, Lumbar back pain M54.5 [facility] [facility] [address] 28654- 7064 Dec, Low back pain M54.5 [facility] [address] 55901- 6316 13 Dec, 2017 Bipolar disorder, current episode mixed, moderate F31.62 [facility] [id number] [place] [address] 59055- 9853 Dec, Generalized anxiety disorder F41.1 and Bipolar disorder, current episode mixed, moderate F31.62 [facility] [id number] [place] [address] 71965 -2939 Nov, Acute non intractable tension-type headache G44.209 [facility] [address] 62741- 3494 Nov, Bipolar disorder, current episode mixed, moderate F31.62 ; Post traumatic stress disorder F43.10 and Borderline personality disorder F60.3 [facility] [id number] [place] [address] 76363- 1063 Nov, Bipolar disorder, current episode mixed, moderate F31.62 [facility] [id number] [place] [address] 07394 -1992 Nov, Abdominal pain R10.9 ; History of PCOS Z87.42 ; History of endometriosis Z87.42 and Pelvic pain R10.2 [facility] [id number] [place] [address] 20631- 2552 Nov, [facility] [address] 87052 -7803 Oct, History of PCOS Z87.42 ; History of endometriosis Z87.42 and Pain R52 [place] [facility] [address] 77344- 2518 Oct, Bipolar disorder, current episode mixed, moderate F31.62 ; Post traumatic stress disorder F43.10 and Borderline personality disorder F60.3 [facility] [facility] [address] 02300- 6953 Oct, Bipolar disorder, current episode mixed, moderate F31.62 [facility] [address] 04629- 9668 Sep, Bipolar disorder, current episode mixed, moderate F31.62 ; Post traumatic stress disorder F43.10 ; Borderline personality disorder F60.3 and Other meterman (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 Z79.899 [facility] [id number] [place] [address] 15945- 3725 Sep, Bipolar disorder, current episode mixed, moderate F31.62 [facility] [id number] [place] [address] 34317 -5973 Sep, Endometriosis N80.9 and Acute right-sided low back pain with right-sided sciatica M54.41 [facility] [id number] [place] [address] 72873- 5370 Aug, [facility] [facility] [address] 66872- 1707 Aug, Bipolar disorder, current episode mixed, moderate F31.62 ; Post traumatic stress disorder F43.10 and Borderline personality disorder F60.3 [facility] [address] [place] [address] 15071- 8238 Aug, Bipolar disorder, current episode mixed, moderate F31.62 ; Post traumatic stress disorder F43.10 and Borderline personality disorder F60.3 [facility] [id number] [place] [address] 79845- 2134 13 Jul, 2017 Bipolar disorder, current episode mixed, moderate F31.62 ; Post traumatic stress disorder F43.10 and Borderline personality disorder F60.3 [facility] [id number] [place] [address] 71393 -6005 11 Jul, 2017 Pharyngitis, unspecified etiology J02.9 and Streptococcal pharyngitis J02.0 [facility] [id number] [place] [address] 14255- 4670 Jun, Bipolar disorder, current episode mixed, moderate F31.62 ; Post traumatic stress disorder F43.10 and Borderline personality disorder F60.3 [facility] [id number] [place] [address] 71501- 0822 May, [facility] [id number] [place] [address] 85573- 4338 May, [facility] [id number] [place] [address] 92584- 6639 May, Bipolar disorder, current episode mixed, moderate F31.62 and Generalized anxiety disorder F41.1 [facility] [id number] [place] [address] 77456- 9449 March, Bipolar disorder, current episode mixed, moderate F31.62 and Generalized anxiety disorder F41.1 [facility] [address] [place] [address] 00761- 2748 04 Mar, 2017 Pelvic pain R10.2 [facility] [id number] [place] [address] 76098- 1510 March, [facility] [address] [address]- 8271 Feb, Bipolar disorder, current episode mixed, moderate F31.62 and Generalized anxiety disorder F41.1 [facility] [address] [address]- 6309 Jan, [facility] [id number] [place] [address] 14391- 6392 Jan, Bipolar disorder, current episode mixed, moderate F31.62 [facility] [id number] [place] [address] 78044- 3012 Jan, Bipolar disorder, current episode mixed, moderate F31.62 [facility] [id number] [place] [address] 76979- 1226 Jan, Bilateral low back pain without sciatica M54.[address] [facility] [id number] [place] [address] [id number] Jan, Dental caries K02.9 and Dental examination Z01.[address] [facility] [id number] [place] [address] [id number] Jan, Encounter for dental examination and cleaning without abnormal findings Z01.20 [facility] [address], [place] [address]- 9079 Jan, Bipolar disorder, current episode mixed, moderate F31.62 and Generalized anxiety disorder F41.1 [facility] [address] [address]- 2924 Dec, [facility] [id number] [place] [address] 86999- 6677 Dec, Bipolar disorder, current episode mixed, moderate F31.62 and Generalized anxiety disorder F41.1 [facility] [address] [place] [address] 31123- 5107 Dec, Other fatigue R53.83 and Orthostatic hypotension I95.[address] [facility] [id number] [id number] Nov, Dental examination Z01.20 [facility] [id number] [place] [address] 52981 -4812 Nov, Bronchitis J40 [facility] [id number] [place] [address] 96793- 6690 Oct, Generalized anxiety disorder F41.1 [facility] [id number] [place] [address] 76063- 1622 14 Sep, 2016 Bipolar disorder, current episode mixed, moderate F31.62 and Generalized anxiety disorder F41.1 [facility] [id number] [place] [address] 18957- 7682 02 Sep, 2016 Bipolar disorder, current episode mixed, moderate F31.62 and Generalized anxiety disorder F41.1 [facility] [id number] [place] [address] 34730 -4058 08 Jul, 2016 Upper respiratory tract infection, unspecified type J06.9 [facility] [id number] [place] [address] 60568- 1543 Jun, Bipolar disorder, current episode mixed, moderate F31.62 and Generalized anxiety disorder F41.1 [facility] [facility] [id number] [place] [address] 25095- 5043 Apr, [facility] [facility] [id number] [place] [address] 50362- 6632 Apr, Encounter for test, result positive Z32.01 [facility] [facility] [id number] [place] [address] 16810- 6121 March, [place] [facility] [id number] [place] [address] 64598- 3358 March, Bipolar disorder, current episode mixed, moderate F31.62 and Generalized anxiety disorder F41.1 [facility] [facility] [id number] [place] [address] 68871- 2682 March, Bipolar disorder, current episode mixed, moderate F31.62 and Generalized anxiety disorder F41.1 [facility] [address] [place] [address] 05756- 3269 March, [facility] [id number] [place] [address] 75307- 0279 March, [facility] [id number] [place] [address] 38200- 3818 Feb, [facility] [id number] [place] [address] 32716- 4303 Feb, [facility] [id number] [place] [address] 54898- 6867 Feb, Bipolar disorder, current episode mixed, moderate F31.62 and Generalized anxiety disorder F41.1 [facility] [id number] [place] [address] 19962- 8517 Jan, Abdominal pain R10.9 [facility] [id number] [place] [address] 01267- 9875 Jan, [facility] [id number] [place] [address] 13553- 5107 29 Dec, 2015 Dental examination Z01.20 [facility] [id number] [place] [address] 36521- 5336 Dec, Dental examination Z01.20 and Dental caries K02.9 [facility] [address] [place] [address] 36004- 2570 Dec, Bipolar disorder, current episode mixed, moderate F31.62 and Generalized anxiety disorder F41.1 [facility] [id number] [place] [address] 60295- 3238 Dec, [facility] [address] [place] [address] 24064- 1399 Nov, Bipolar disorder, current episode mixed, moderate F31.62 ; Generalized anxiety disorder F41.1 and Seizure-like activity R56.9 [facility] [address] [place] [address] 03640- 7807 Oct, [facility] [id number] [place] [address] 70053- 7138 Oct, Bipolar disorder, current episode mixed, moderate F31.62 [facility] [address] 07469- 1650 14 Oct, 2015 Well woman exam Z01.419 [...] Tobacco use Z72.0 and Hot flashes N95.1 [facility] [id number] [place] [address] 96017- 7937 09 Oct, 2015 Seizure-like activity R56.9 and Irregular periods N92.6 [facility] [id number] [place] [address] 26133- 5360 Oct, Bipolar disorder, current episode mixed, moderate F31.62 ; Generalized anxiety disorder F41.1 and Underweight R63.6 [facility] [id number] [place] [address] 73536- 1507 Oct, [place] [address] 31637- 3229 Oct, Generalized anxiety disorder F41.1 and Unspecified mood [ affective] disorder F39 [facility] [id number] [place] [address] 59977 -6867 Oct, Back pain M54.9 and Anxiety F41.9 [facility] [id number] [place] [address] 40591- 8460 Oct, [facility] [id number] [place] [address] 01420 -7031 Sep, Arm pain, left M79.602 [facility] [id number] [place] [address] 09506- 9536 Sep, [facility] [id number] [place] [address] [id number] Sep, Dental examination Z01.20 and Dental caries K02.9 [facility] [id number] [place] [address] 53993- 1663 Sep, Generalized anxiety disorder F41.1 and Unspecified episodic mood disorder F39 [facility] [id number] [place] [address] 66915- 6594 Sep, Bilateral low back pain without sciatica M54.5 and Seizure- like activity R56.9 [facility] [id number] [place] [address] 38678- 8782 Aug, [facility] [id number] [place] [address] 83014- 1814 Aug, [facility] [id number] [place] [address] 59293- 5908 Aug, [facility] [id number] [place] [address] 32666- 7318 Aug, Visual changes H53.9 and Bilateral low back pain without sciatica M54.5 [facility] [id number] [place] [address] 17554- 9317 Jul, [facility] [address] 27673- 4356 Jun, Bipolar I disorder, most recent episode (or current) mixed, moderate 296.62 ; Generalized anxiety disorder 300.02 and High risk medication use V58.69 [facility] [id number] [place] [address] 67895- 2954 Jun, [facility] [address], [place] [address]- 7027 May, [facility] [id number] [place] [address] 93405- 4625 May, Bipolar I disorder, most recent episode (or current) mixed, moderate 296.62 and Generalized anxiety disorder 300.[address] [facility] [address] [id number] May, Dental examination V72.2 [facility] [id number] [place] [address] 55544- 5609 March, Bipolar I disorder, most recent episode (or current) mixed, moderate 296.62 and Generalized anxiety disorder 300.02 [facility] [id number] [place] [address] 606367- 1216 March, [facility] [id number] [place] [address] 97683- 0524 March, [facility] [id number] [place] [address] 37730- 9410 March, Underweight 783.22 ; Hand pain, right 729.5 and Reflux gastritis 535.40 [facility] [address], [place] [address]- 6684 Feb, [facility] [address], [place] [address]- 0871 Feb, [facility] [id number] [place] [address] 14992- 5045 Jan, [facility] [id number] [place] [address] 30816- 3940 18 Jan, 2015 [facility] [id number] [place] [address] 14848- 5208 Jan, [facility] [address] [address] 0819 Jan, [facility] [id number] [place] [address] 88632- 7316 13 Jan, 2014 [facility] [place] [facility] [address] [facility] [id number] [place] [address]- 0656 13 Jan, 2014 [facility] [place] [facility] [address] [facility] [address] [id number] [place] [address]- 6653 05 Jan, 2014 [facility] [place] [facility] [address] [facility] [address] [id number] [place] [address]- 9628 05 Jan, 2014 [facility] [place] [facility] [address] [facility] [address] [id number] [place] [address]- 0774 Jan, 2014 [facility] [place] [facility] [address] [facility] [address] [id number] [place] [address]- 1418 Jan, [facility] [place] [facility] [id number] [place] [address]- 9977 Jan, [facility] [place] [facility] [address] [place] [address]- 2108 Jan, [facility] [place] [facility] [id number] [place] [address]- 1511 20 Dec, 2014 [facility] [place] [facility] [address] [place] [address]- 4097 20 Dec, 2014 [facility] [place] [facility] [address] [place] [address]- 2340 19 Dec, 2014 [facility] [place] [facility] [address] [place] [address]- 5971 19 Dec, 2014 [facility] [place] [facility] [id number], [place] [address]- 1800 18 Dec, 2014 [facility] [place] [facility] [address] [facility] [address] [id number] [place] [address]- 2688 17 Dec, 2014 [facility] [place] [facility] [address] [facility] [address] [id number] [address]- 3129 17 Dec, 2014 [facility] [place] [facility] [address], [place] [address]- 9284 Dec, 2014 [facility] [place] [facility] [address] [id number] [place] [address]- 3037 Dec, 2014 [facility] [place] [facility] [address] [id number] [place] [address]- 0046 Dec, 2014 [facility] [place] [facility] [address] [facility] [address] [id number] [place] [address]- 2863 Dec, 2014 [facility] [place] [facility] [address] [id number] [place] [address]- 0511 Dec, 2014 [facility] [place] [facility] [address] [id number] [place] [address]- 9317 Dec, 2014 [facility] [place] [facility] [address] [id number] [place] [address]- 7315 Dec, 2014 [facility] [place] [facility] [address] [facility] [address] [id number] [place] [address]- 6278 Dec, 2014 [facility] [place] [facility] [address] [id number] [place] [address]- 2758 Dec, 2014 [facility] [place] [facility] [address] [facility] [address] [id number] [place] [address]- 3979 Dec, 2014 [facility] [place] [facility] [address] [facility] [address] [id number] [place] [address]- 1378 Dec, 2014 [facility] [place] [facility] [address] [facility] [address] [id number] [place] [address]- 0700 Dec, 2014 [facility] [place] [facility] [address] [facility] [address] [id number] [place] [address]- 1744 Nov, [facility] [place] [facility] [address] [id number] [place] [address]- 0491 Nov, [facility] [place] [facility] [address] [facility] [id number] [place] [address] Nov, [facility] [place] [facility] [address] 2001 [id number] [place] [address] Nov, [facility] [place] [facility] [address] [id number] [place] [address] Nov, [facility] [address] [id number] [place] [address] Nov, [facility] [address] [id number] [place] [id number] Nov, [facility] [address] [id number] [place] [address] Nov, [facility] [address] [id number] [place] [address] Nov, [facility] [address] [id number] [place] [id number] Nov, [facility] [address] [id number] [place] [address] Nov, [facility] [address] [id number] [place] [address] Nov, [facility] [address] [id number] [place] [address] Oct, [facility] [place] [facility] [address] [id number] [place] [address] Oct, [facility] [address] [id number] [place] [address] Oct, [facility] [place] [facility] [address] [id number] [place] [address] Oct, [facility] [place] [facility] [address] [id number] [place] [address] Oct, [facility] [place] [facility] [address] [id number] [place] [address] Oct, [facility] [place] [facility] [address] [id number] [place] [address] Oct, [facility] [place] [facility] [address] [id number] [place] [address] Oct, [facility] [place] [facility] [address] [id number] [place] [address] Oct, [facility] [place] [facility] [address] [id number] [place] [address] Oct, [facility] [place] [facility] [address] [id number] [place] [address] Oct, [facility] [place] [facility] [address] [id number] [place] [address] Oct, [facility] [place] [facility] [address] [id number] [place] [address] Sep, [facility] [place] [facility] [address] [id number] [place] [address] Sep, [facility] [place] [facility] [address] [id number] [place] [address] Sep, [facility] [place] [facility] [address] [id number] [place] [address] Sep, [facility] [place] [facility] [address] [id number] [place] [address] Sep, [facility] [place] [facility] [address] [id number], [place] [address] Sep, [facility] [place] [facility] [address] [facility] [address] [id number], [place] [address] Sep, [facility] [place] [facility] [address] [id number], [place] [address] Sep, [facility] [place] [facility] [address] [id number] [place] [address] 8927 Aug, [facility] [place] [facility] [address] [id number] [place] [address] 7050 Aug, [facility] [place] [facility] [address] [id number] [address] Aug, [facility] [place] [facility] [address] [id number], [place] [address] Aug, [facility] [place] [facility] [address] [id number] [place] [address]- [address] Aug, [facility] [place] [facility] [address] [id number] [place] [address]- 76[address] Aug, [facility] [place] [facility] [address] [id number] [place] [address] 2032 Aug, [facility] [place] [facility] [address] [id number] [place] [address] 08 Aug, 2014 [facility] [place] [facility] [address] [id number] [place] [address]- [address] Aug, [facility] [place] [facility] [address] [id number] [place] [address] 3217 Aug, [facility] [place] [facility] [address] [facility] [address] [id number] [place] [address]- [address]48 Aug, [facility] [place] [facility] [address] [id number] [place] [address]- 6301 Aug, [facility] [place] [facility] [address] [facility] [address] [id number] [place] [address]- 6045 Aug, [facility] [place] [facility] [address] [facility] [address] [id number] [place] [address]- 1359 Jul, [facility] [place] [facility] [address] [id number] [place] [address]- 1875 Jul, [facility] [place] [facility] [address] [id number] [place] [address]- 6549 Jul, [facility] [place] [facility] [address] [id number] [place] [address]- 3092 Jul, [facility] [place] [facility] [address] [id number] [place] [address]- 6734 Jun, [facility] [place] [facility] [address] [facility] [address] [id number] [place] [address]- 1481 Jun, [facility] [place] [facility] [address] [id number] [place] [address]- 0769 Jun, [facility] [place] [facility] [address] [id number] [place] [address]- 4939 Jun, [facility] [place] [facility] [address] [id number] [place] [address]- 2986 Jun, [facility] [place] [facility] [address] [id number] [place] [address]- 1553 Jun, [facility] [place] [facility] [address] [id number] [place] [address]- 6658 May, [facility] [place] [facility] [address] [id number] [place] [address]- 9799 May, [facility] [place] [facility] [address] [id number] [place] [address]- 2456 May, [facility] [place] [facility] [address] [id number] [place] [address]- 2017 May, [facility] [place] [facility] [address] [id number] [place] [address]- 7240 Apr, [facility] [place] [facility] [address] [id number] [place] [address]- 3271 Apr, [facility] [place] [facility] [address] [id number] [place] [address]- 0762 March, [facility] [place] [facility] [address] [id number] [place] [address]- 4811 March, [facility] [place] [facility] [address] [id number] [place] [address]- 2515 March, [facility] [place] [facility] [address] [id number] [place] [address]- 3904 March, [facility] [place] [facility] [address] [id number] [place] [address] March, [facility] [place] [facility] [address] [id number] [place] [address]- 3885 March, [facility] [place] [facility] [address] [id number] [place] [address]- 2925 Feb, [facility] [place] [facility] [address] [id number] [place] [address]- 0870 Feb, [facility] [place] [facility] [address] [id number] [place] [address] Dec, [facility] [place] [facility] [address] [id number] [place] [address]- 9467 Dec, [facility] [place] [facility] [address] [id number] [place] [address]- 6333 Nov, [facility] [place] [facility] [address] [id number] [place] [address]- 7468 Nov, [facility] [place] [facility] [address] [id number] [place] [address]- 9804 Sep, [facility] [place] [facility] [address] [id number] [place] [address]- 3500 Sep, [facility] [place] [facility] [address] [id number] [place] [address]- 6857 Sep, [facility] [place] [facility] [address] [id number] [place] [address]- 2250 Sep, [facility] [place] [facility] [address] [id number], [place] [address]- 5726 Sep, [facility] [place] [facility] [address] [id number], [place] [address]- 0728 Sep, [facility] [place] [facility] [address] [id number] [place] [address]- 9906 Sep, [facility] [place] [facility] [address] [id number] [place] [address]- 0663 Aug, [facility] [place] [facility] [address] [id number] [place] [address]- 7865 Aug, [facility] [place] [facility] [address] [id number] [place] [address]- 9524 Aug, [facility] [place] [facility] [address] [id number] [place] [address]- 9698 Aug, [facility] [place] [facility] [address] [id number] [place] [address]- 2688 Aug, [facility] [place] [facility] [address] [id number] [place] [address]- 6983 Aug, [facility] [place] [facility] [address] [id number] [place] [address]- 1751 Jul, [facility] [place] [facility] [address] [id number] [place] [address]- 2937 Jul, [facility] [place] [facility] [address] [id number] [place] [address]- 9962 16 Jul, 2013 [facility] [place] [facility] [address] [id number] [place] [address]- 9660 Jul, [facility] [place] [facility] [address] [id number] [place] [address]- 7194 Jun, [facility] [place] [facility] [address] [id number] [place] [address]- 1789 Jun, [facility] [place] [facility] [address] [id number] [place] [address]- 1952 Jun, [facility] [place] [facility] [address] [id number] [place] [address]- 8641 Jun, [facility] [place] [facility] [address] [id number] [place] [address]- 4449 Jun, [facility] [place] [facility] [address] [id number] [place] [address]- 6323 Jun, [facility] [place] [facility] [address] [id number] [place] [address]- 1770 Jun, [facility] [place] [facility] [address] [id number] [place] [address]- 3429 May, [facility] [place] [facility] [address] [id number] [place] [address]- 6897 23 May, 2013 [facility] [place] [facility] [address] [id number] [place] [address]- 5363 16 May, 2013 [facility] [place] [facility] [address] [id number] [place] [address]- 0429 15 May, 2013 [facility] [place] [facility] [address] [id number] [place] [address]- 2455 May, [facility] [place] [facility] [address] [id number] [place] [address]- 9026 05 May, 2013 [facility] [place] [facility] [address] [id number] [place] [address]- 8802 May, [facility] [place] [facility] [address] [id number] [place] [address]- 8238 28 Apr, 2013 [facility] [place] [facility] [address] [id number] [place] [address]- 9882 Apr, [facility] [place] [facility] [address] [id number] [place] [address]- 8225 Apr, [facility] [place] [facility] [address] [id number] [place] [address]- 8295 26 Apr, 2013 [facility] [place] [facility] [address] [id number] [place] [address]- 8697 20 Apr, 2013 [facility] [place] [facility] [address] [id number] [place] [address]- 1947 18 Apr, 2013 [facility] [place] [facility] [address] [id number] [place] [address]- 0675 18 Apr, 2013 [facility] [place] [facility] [address] [id number] [place] [address]- 3546 18 Apr, 2013 [facility] [place] [facility] [address] [id number] [place] [address]- 7757 17 Apr, 2013 [facility] [place] [facility] [address] [id number] [place] [address]- 5081 14 Apr, 2013 [facility] [place] [facility] [address] [id number] [place] [address]- 4249 14 Apr, 2013 [facility] [place] [facility] [address] [id number] [place] [address]- 0612 Apr, [facility] [place] [facility] [address] [id number] [place] [address]- 4318 10 Apr, 2013 [facility] [place] [facility] [address] [id number] [place] [address]- 8664 09 Apr, 2013 [facility] [place] [facility] [address] [id number] [place] [address]- 8977 07 Apr, 2013 [facility] [place] [facility] [address] [id number] [place] [address]- 8925 06 Apr, 2013 [facility] [place] [facility] [address] [id number] [place] [address]- 7371 Apr, [facility] [place] [facility] [address] [id number] [place] [address]- 9314 05 Apr, 2013 [facility] [place] [facility] [address] [id number] [place] [address]- 9823 Apr, [facility] [place] [facility] [address] [id number] [place] [address]- 1114 March, [facility] [place] [facility] [address] [id number] [place] [address]- 2014 March, [facility] [place] [facility] [address] [id number] [place] [address]- 5015 March, [facility] [place] [facility] [address] [id number] [place] [address]- 9629 March, [facility] [place] [facility] [address] [id number] [place] [address]- 4427 March, [facility] [place] [facility] [address] [id number] [place] [address]- 0434 March, [facility] [place] [facility] [address] [id number] [place] [address]- 8586 March, [facility] [address] [id number] [place] [address]- 7425 Feb, [facility] [address] [id number] [place] [address]- 7996 Feb, [facility] [address] [id number] [place] [address]- 8027 27 Jan, 2013 [facility] [address] [id number] [place] [address]- 6910 18 Jan, 2013 [facility] [address] [id number] [place] [address]- 1560 15 Jan, [address] [facility] [address] [id number] [place] [address]- 9822 14 Jan, 2013 [facility] [address] [id number] [place] [address]- 1410 13 Jan, [address] [facility] [address] [id number] [place] [address]- 7135 12 Jan, 2013 [facility] [address] [id number] [place] [address]- 7938 11 Jan, [address] [facility] [address] [id number] [place] [address]- 7174 09 Jan, [address] [facility] [address] [id number] [place] [address]- 4407 08 Jan, 2013 [facility] [address] [id number] [place] [address]- 9941 07 Jan, 2013 [facility] [address] [id number] [place] [address]- 9599 06 Jan, 2013 [facility] [address] [id number] [place] [address]- 2546 17 Nov, 2012 [facility] [address] [id number] [place] [address]- 9572 Oct, [facility] [place] [facility] [address] [id number] [place] [address]- 2573 Oct, [facility] [place] [facility] [address] [id number] [place] [address]- 2065 Oct, [facility] [place] [facility] [address] [id number] [place] [address]- 0877 Oct, [facility] [place] [facility] [address] [id number] [place] [address]- 5545 Sep, [facility] [place] [facility] [address] [id number] [place] [address]- 0294 Sep, [facility] [place] [facility] [address] [id number] [place] [address]- 7476 Sep, [facility] [place] [facility] [address] [id number] [place] [address]- 5225 Sep, [facility] [place] [facility] [address] [id number] [place] [address]- 4359 Sep, [facility] [place] [facility] [address] [id number] [place] [address]- 8352 Sep, [facility] [place] [facility] [address] [id number] [place] [address]- 2259 Sep, [facility] [place] [facility] [address] [id number] [place] [address]- 0802 Sep, [facility] [place] [facility] [address] [id number], [place] [address]- 6756 Sep, [facility] [place] [facility] [address] [id number] [place] [address]- 8436 Sep, [facility] [place] [facility] [address] [id number] [place] [address]- 6981 Sep, [facility] [place] [facility] [address] [id number] [place] [address]- 6964 Aug, [facility] [place] [facility] [address] [id number] [place] [address]- 5050 Aug, [facility] [place] [facility] [address] [id number] [place] [address]- 4479 04 Aug, 2012 [facility] [place] [facility] [address] [id number] [place] [address]- 5608 28 Jul, 2012 [facility] [place] [facility] [address] [id number] [place] [address]- 2046 25 Jul, 2012 [facility] [place] [facility] [address] [id number] [place] [address]- 2890 19 Jul, 2012 [facility] [place] [facility] [address] [id number] [place] [address]- 1579 17 Jul, 2012 [facility] [place] [facility] [address] [id number] [place] [address]- 5163 20 Jun, 2012 [facility] [place] [facility] [address] [id number] [place] [address]- 8174 16 Jun, 2012 [facility] [place] [facility] [address] [id number] [place] [address]- 0656 15 Jun, 2012 [facility] [place] [facility] [address] [id number] [place] [address]- 4530 15 Jun, 2012 [facility] [place] [facility] [address] [id number] [place] [address]- 6917 13 Jun, 2012 [facility] [place] [facility] [address] [id number] [place] [address]- 9500 March, [facility] [place] [facility] [address] [id number] [place] [address]- 6610 Feb, [facility] [place] [facility] [address] [id number] [place] [address]- 8846 Jan, [facility] [place] [facility] [address] [id number] [place] [address]- 6491 Jan, [facility] [place] [facility] [address] [id number] [place] Jan, [facility] [place] [facility] [address] [id number] [place] [address]- 8359 14 Jan, 2012 [facility] [place] [facility] [address] [id number] [place] [address]- 6066 14 Jan, 2012 [facility] [place] [facility] [address] [id number] [place] [address] 2546 14 Jan, 2012 [facility] [place] [facility] [address] [id number] [place] [address]- 7716 28 Dec, 2011 [facility] [place] [facility] [address] [id number] [place] [address] 2543 27 Dec, 2011 [facility] [place] [facility] [address] [id number] [place] [address]- 1456 23 Dec, 2011 [facility] [place] [facility] [address] [id number] [place] [address]- 4709 21 Dec, 2011 [facility] [place] [facility] [address] [id number] [place] [address]- 7052 20 Dec, 2011 [facility] [place] [facility] [address] [id number] [place] [address]- 6548 19 Dec, 2011 [facility] [place] [facility] [address] [id number] [place] [address]- 6538 17 Dec, 2011 [facility] [place] [facility] [address] [id number] [place] [address]- 7137 16 Dec, 2011 [facility] [place] [facility] [address] [id number] [place] [address]- 6142 31 Nov, 2011 [facility] [place] [facility] [address] [id number] [place] [address]- 2545 Oct, [facility] [place] [facility] [address] [id number] [place] [address] 2546 18 Sep, 2011 [facility] [place] [facility] [address] [id number] [place] 3304 18 Sep, 2011 [facility] [place] [facility] [address] [id number], [place] [address]- 8676 Sep, [facility] [address] [id number], [place] [address]- 7605 Sep, [facility] [address] [id number], [place] [address]- 5576 Sep, [facility] [address] [id number], [place] [address]- 5573 Sep, [facility] [address] [id number], [place] [address]- [address] Jan, [facility] [address] [facility] 2001 [id number], [place] [address]- 5567 Apr, IMMUNIZATIONS No Known Immunizations SOCIAL HISTORY Never Assessed REASON FOR VISIT Requests return call PLAN OF CARE VITAL SIGNS MEDICATIONS Unknown [...] History Left ovary removed 12/2016 Hospitalization History [facility] Admission x4 2009 most recent admission Hospitalization History [facility]; overdose 2010 Hospitalization History child 11/29/2016
--- OUTSIDE RECORDS SUMMARY | 2018-08-05 20:24 | XMS REPORT ---
Author Author YULIYA SALDIVAR [facility] Address [address] [place] [address] Care Team Providers Care Field Nurse Name Role Phone OPNCE YULIYA HALL Unavailable PROBLEMS Type Condition ICD9-CM Code FKZ27-OH Code Onset Dates Condition Status SNOMED Code Problem Generalized anxiety disorder F41.1 Active 89019291 Problem Acute non intractable tension-type headache G44.209 Active 892266364 Problem Acute right-sided low back pain with right-sided sciatica M54.41 Active 612063961 Problem Post traumatic stress disorder F43.10 Active 40350623 Problem Bipolar disorder, current episode mixed, moderate F31.62 Active 563043841 Problem Endometriosis N80.9 Active 838154035 Problem Borderline personality disorder F60.3 Active 36878209 ALLERGIES Substance Reaction Event Type Date Status Thioridazine HCl tachycardia Drug Allergy March, Active Pristiq Unknown Drug Allergy March, Active Penicillin V Potassium rash Drug Allergy March, Active Diclofenac Sodium nausea Drug Allergy March, Active Depakote fatigue Drug Allergy March, Active ENCOUNTERS Encounter Location Date Diagnosis [facility] [id number], [place] [address] Jul, [facility] [id number] [place] [address] [id number] Jun, [facility] [id number] [place] [address] 88608- 6606 Jun, Bipolar disorder, current episode mixed, moderate F31.62 [facility] [id number] [place] [address] 82072- 2456 May, Palpitations R00.2 [facility] [address], [place] [address] May, Palpitations R00.2 [facility] [id number] [place] [address] 90063- 7115 12 May, 2018 Palpitations R00.2 and Frequent bowel movements R19.4 [facility] [id number] [place] [address] 89688- 1093 05 May, 2018 Bipolar disorder, current episode mixed, moderate F31.62 ; Post traumatic stress disorder F43.10 and Borderline personality disorder F60.3 [facility] [id number] [place] [address] [id number] 15 Apr, 2018 Dental examination Z01.20 [facility] [id number] [place] [address] 53020 -8295 15 Apr, 2018 [facility] [id number] [place] [address] 26968- 8074 15 Apr, 2018 Dental examination Z01.20 [facility] [id number] [place] [address] 89253 -7426 15 Apr, 2018 Tooth pain K08.89 [facility] [id number] [place] [address] 30429- 1178 06 Apr, 2018 Bipolar disorder, current episode mixed, moderate F31.62 ; Post traumatic stress disorder F43.10 and Borderline personality disorder F60.3 [facility] [id number] [place] [address] 72495 -4413 March, Abdominal pain R10.9 ; UTI symptoms R39.9 and Other microscopic hematuria R31.29 [facility] [id number] [place] [address] 27621- 5602 March, [facility] [address] [address]- 4177 March, Bipolar disorder, current episode mixed, moderate F31.62 ; Post traumatic stress disorder F43.10 and Borderline personality disorder F60.3 [facility] [id number] [place] [address] 85796- 7413 Feb, Encounter for immunization Z23 [facility] [id number] [place] [address] 44164- 9861 16 Feb, 2018 Bipolar disorder, current episode mixed, moderate F31.62 ; Post traumatic stress disorder F43.10 and Borderline personality disorder F60.3 [facility] [id number] [place] [address] 08241- 0537 11 Feb, 2018 Bipolar disorder, current episode mixed, moderate F31.62 ; Post traumatic stress disorder F43.10 ; Borderline personality disorder F60.3 and 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 [place] [address] 80334- 7876 30 Jan, 2018 Encounter for immunization Z23 [facility] [id number] [place] [address] 30212- 6770 30 Jan, 2018 [place] [address] 17742- 1273 Jan, Bipolar disorder, current episode mixed, moderate F31.62 [facility] [id number] [place] [address] 85004 -9518 Jan, Lumbar back pain M54.5 [place] [id number] [place] [address] 44012- 2771 28 Dec, 2017 Low back pain M54.5 [facility] [id number] [place] [address] 26166- 2614 13 Dec, 2017 Bipolar disorder, current episode mixed, moderate F31.62 [facility] [id number] [place] [address] 02393- 8523 Dec, Generalized anxiety disorder F41.1 and Bipolar disorder, current episode mixed, moderate F31.62 [facility] [id number] [place] [address] 47699 -0226 Nov, Acute non intractable tension-type headache G44.209 [facility] [address] 59673- 9179 Nov, Bipolar disorder, current episode mixed, moderate F31.62 ; Post traumatic stress disorder F43.10 and Borderline personality disorder F60.3 [place] [address] 28436- 8119 Nov, Bipolar disorder, current episode mixed, moderate F31.62 [facility] [id number] [place] [address] 94261 -5930 Nov, Abdominal pain R10.9 ; History of PCOS Z87.42 ; History of endometriosis Z87.42 and Pelvic pain R10.2 [place] [address] 73961- 0078 Nov, [facility] [place] [address] 04530 -4048 Oct, History of PCOS Z87.42 ; History of endometriosis Z87.42 and Pain R52 [place] [address] 51294- 0979 Oct, Bipolar disorder, current episode mixed, moderate F31.62 ; Post traumatic stress disorder F43.10 and Borderline personality disorder F60.3 [place] [id number] [place] [address] 48056- 7969 Oct, Bipolar disorder, current episode mixed, moderate F31.62 [place] [id number] [place] [address] 54793- 8641 Sep, Bipolar disorder, current episode mixed, moderate F31.62 ; Post traumatic stress disorder F43.10 ; Borderline personality disorder F60.3 and 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 [place] [id number] [place] [address] 31074- 8948 Sep, Bipolar disorder, current episode mixed, moderate F31.62 [facility] [id number] [place] [address] 79936 -9771 Sep, Endometriosis N80.9 and Acute right-sided low back pain with right-sided sciatica M54.41 [facility] [id number] [place] [address] 32399- 2195 Aug, [facility] [id number] [place] [address] 32374- 0690 Aug, Bipolar disorder, current episode mixed, moderate F31.62 ; Post traumatic stress disorder F43.10 and Borderline personality disorder F60.3 [place] [address] 59179- 1359 11 Aug, 2017 Bipolar disorder, current episode mixed, moderate F31.62 ; Post traumatic stress disorder F43.10 and Borderline personality disorder F60.3 [place] [id number] [place] [address] 60078- 8834 13 Jul, 2017 Bipolar disorder, current episode mixed, moderate F31.62 ; Post traumatic stress disorder F43.10 and Borderline personality disorder F60.3 [facility] [id number] [place] [address] 11183 -7660 11 Jul, 2017 Pharyngitis, unspecified etiology J02.9 and Streptococcal pharyngitis J02.0 [place] [id number] [place] [address] 37898- 6440 16 Jun, 2017 Bipolar disorder, current episode mixed, moderate F31.62 ; Post traumatic stress disorder F43.10 and Borderline personality disorder F60.3 [place] [id number] [place] [address] 21348- 4987 May, [place] [id number] [place] [address] 08499- 4897 May, [facility] [id number] [place] [address] 26442- 5101 May, Bipolar disorder, current episode mixed, moderate F31.62 and Generalized anxiety disorder F41.1 [place] [address] [place] [address] 09493- 1976 March, Bipolar disorder, current episode mixed, moderate F31.62 and Generalized anxiety disorder F41.1 [facility] [address], [place] [address] 7018 March, Pelvic pain R10.2 [facility] [id number] [place] [address] March, [facility] [id number] [place] [address] 14686- 5667 Feb, Bipolar disorder, current episode mixed, moderate F31.62 and Generalized anxiety disorder F41.1 [facility] [address] [place] [address] 99175- 5451 Jan, [facility] [id number] [place] [address] 78959- 8438 Jan, Bipolar disorder, current episode mixed, moderate F31.62 [facility] [id number] [place] [address] 36328- 9205 Jan, Bipolar disorder, current episode mixed, moderate F31.62 [facility] [id number] [place] [address] 30570- 1834 Jan, Bilateral low back pain without sciatica M54.5 [facility] [id number] [place] [address] [id number] Jan, Dental caries K02.9 and Dental examination Z01.20 [facility] [id number] [place] [address] [id number] Jan, Encounter for dental examination and cleaning without abnormal findings Z01.20 [facility] [address] [place] [address] 43494- 9469 Jan, Bipolar disorder, current episode mixed, moderate F31.62 and Generalized anxiety disorder F41.1 [facility] [address] [place] [address] 60122- 3101 Dec, [facility] [address] [place] [address] 45077- 8937 Dec, Bipolar disorder, current episode mixed, moderate F31.62 and Generalized anxiety disorder F41.1 [facility] [address], [place] [address]- 5231 03 Dec, 2016 Other fatigue R53.83 and Orthostatic hypotension I95.1 [facility] [id number] [id number] Nov, Dental examination Z01.20 [facility] [id number] [place] [address] 42641 -6877 Nov, Bronchitis J40 [facility] [id number] [place] [address] 33560- 7652 Oct, Generalized anxiety disorder F41.1 [place] [id number] [place] [address] 70675- 1392 Sep, Bipolar disorder, current episode mixed, moderate F31.62 and Generalized anxiety disorder F41.1 [place] [id number] [place] [address] 85648- 4565 Sep, Bipolar disorder, current episode mixed, moderate F31.62 and Generalized anxiety disorder F41.1 [facility] [id number] [place] [address] 90833 -1412 08 Jul, 2016 Upper respiratory tract infection, unspecified type J06.9 [place] [id number] [place] [address] 65141- 6900 Jun, Bipolar disorder, current episode mixed, moderate F31.62 and Generalized anxiety disorder F41.1 [facility] [id number] [place] [address] 89071- 9995 Apr, [place] [address] 68390- 8877 Apr, Encounter for test, result positive Z32.01 [facility] [id number] [place] [address] 99666- 1626 March, [facility] [address] 52256- 6147 March, Bipolar disorder, current episode mixed, moderate F31.62 and Generalized anxiety disorder F41.1 [facility] [address] [place] [address] 30443- 9661 March, Bipolar disorder, current episode mixed, moderate F31.62 and Generalized anxiety disorder F41.1 [facility] [id number] [place] [address] 78902- 8884 March, [facility] [id number] [place] [address] 72165- 4714 March, [facility] [id number] [place] [address] 07316- 9154 Feb, [facility] [id number] [place] [address] 39518- 0638 Feb, [facility] [id number] [place] [address] 94342- 5461 Feb, Bipolar disorder, current episode mixed, moderate F31.62 and Generalized anxiety disorder F41.1 [facility] [id number] [place] [address] 84803- 3875 Jan, Abdominal pain R10.9 [facility] [id number] [place] [address] 97795- 2800 14 Jan, 2016 [facility] [address] [place] [address] 66426- 2233 Dec, Dental examination Z01.20 [facility] [id number] [place] [address] 37380- 3554 22 Dec, 2015 Dental examination Z01.20 and Dental caries K02.9 [facility] [id number] [place] [address] 60162- 4818 15 Dec, 2015 Bipolar disorder, current episode mixed, moderate F31.62 and Generalized anxiety disorder F41.1 [facility] [address] [place] [address] 05471- 7854 Dec, [facility] [address] [place] [address] 01229- 8901 Nov, Bipolar disorder, current episode mixed, moderate F31.62 ; Generalized anxiety disorder F41.1 and Seizure-like activity R56.9 [place] [address] [place] [address] 39471- 8574 Oct, [place] [address] 67183- 9665 Oct, Bipolar disorder, current episode mixed, moderate F31.62 [place] [id number] [place] [address] 21520- 6080 Oct, Well woman exam Z01.419 ; Encounter [...] Tobacco use Z72.0 and Hot flashes N95.1 [place] [id number] [place] [address] 64542- 6414 Oct, Seizure-like activity R56.9 and Irregular periods N92.6 [place] [id number] [place] [address] 06853- 8316 Oct, Bipolar disorder, current episode mixed, moderate F31.62 ; Generalized anxiety disorder F41.1 and Underweight R63.6 [place] [id number] [place] [address] 64583- 4246 Oct, [place] [id number] [place] [address] 00316- 8931 Oct, Generalized anxiety disorder F41.1 and Unspecified mood [ affective] disorder F39 [facility] [id number] [place] [address] Oct, Back pain M54.9 and Anxiety F41.9 [facility] [address] 87572- 4636 Oct, [facility] [id number] [place] [address] 59271 -2088 Sep, Arm pain, left M79.602 [facility] [id number] [place] [address] 97429- 7895 Sep, [facility] [address] [id number] Sep, Dental examination Z01.20 and Dental caries K02.9 [facility] [id number] [place] [address] 83625- 6541 Sep, Generalized anxiety disorder F41.1 and Unspecified episodic mood disorder F39 [facility] [address] 19160- 8221 Sep, Bilateral low back pain without sciatica M54.5 and Seizure- like activity R56.9 [facility] [id number] [place] [address] 87892- 8051 Aug, [facility] [id number] [place] [address] 07299- 8625 Aug, [facility] [address] 10542- 1213 Aug, [facility] [id number] [place] [address] 43278- 7319 Aug, Visual changes H53.9 and Bilateral low back pain without sciatica M54.5 [facility] [id number] [place] [address] 55412- 0373 Jul, [facility] [id number] [place] [address] 72537- 2119 Jun, Bipolar I disorder, most recent episode (or current) mixed, moderate 296.62 ; Generalized anxiety disorder 300.02 and High risk medication use V58.69 [facility] [id number] [place] [address] 08065- 2358 Jun, [facility] [id number] [place] [address] 94316- 0894 May, [facility] [id number] [place] [address] 13783- 6079 May, Bipolar I disorder, most recent episode (or current) mixed, moderate 296.62 and Generalized anxiety disorder 300.02 [facility] [id number] [place] [address] [id number] May, Dental examination V72.2 [facility] [id number] [place] [address] 20806- 6776 March, Bipolar I disorder, most recent episode (or current) mixed, moderate 296.62 and Generalized anxiety disorder 300.02 [facility] [id number] [place] [address] 21127- 4992 March, [facility] [id number] [place] [address] 09589- 6263 March, [facility] [id number] [place] [address] 39935- 3909 March, Underweight 783.22 ; Hand pain, right 729.5 and Reflux gastritis 535.40 [facility] [id number] [place] [address] 16257- 1989 Feb, [facility] [id number] [place] [address] 80906- 4917 Feb, [facility] [id number] [place] [address] 51343- 5498 Jan, [facility] [id number] [place] [address] 07328- 1622 Jan, [facility] [id number] [place] [address] 30033- 2546 16 Jan, 2015 [facility] [place] [facility] [address] [id number] [place] [address]- 3425 16 Jan, 2015 [facility] [place] [facility] [address] [id number] [place] [address]- 3309 Jan, [facility] [place] [facility] [address] [id number] [place] [address]- 4428 Jan, [facility] [place] [facility] [address] [id number] [place] [address]- 0501 Jan, [facility] [place] [facility] [address] [id number] [place] [address]- 6229 Jan, [facility] [place] [facility] [address] [facility] [id number] [place] [address]- 6199 Jan, [facility] [place] [facility] [address] [facility] [id number] [place] [address]- 7472 Jan, [facility] [place] [facility] [address] [facility] [id number] [place] [address]- 7677 Jan, [facility] [place] [facility] [address] [id number] [place] [address]- 3135 Jan, [facility] [place] [facility] [address] [facility] [id number] [place] [address]- 5481 Dec, [facility] [place] [facility] [address] [id number], [place] [address]- 1305 Dec, 2014 [facility] [place] [facility] [address] [facility] [id number], [place] [address]- 9248 Dec, [facility] [place] [facility] [address] [id number] [place] [address]- 0443 Dec, [facility] [place] [facility] [address] [facility] [id number], [place] [address]- 1988 18 Dec, 2014 [facility] [place] [facility] [address] [facility] [id number], [place] [address]- 8808 17 Dec, 2014 [facility] [place] [facility] [address] [id number] [place] [address]- 8277 Dec, 2014 [facility] [place] [facility] [address] [id number] [place] [address]- 5222 Dec, 2014 [facility] [place] [facility] [address] [id number] [place] [address]- 5937 Dec, 2014 [facility] [place] [facility] [address] [id number] [place] [address]- 1483 Dec, 2014 [facility] [place] [facility] [address] [id number] [place] [address]- 1446 Dec, 2014 [facility] [place] [facility] [address] [id number] [place] [address]- 3165 Dec, 2014 [facility] [place] [facility] [address] [facility] [id number] [place] [address]- 1808 Dec, 2014 [facility] [place] [facility] [address] [id number] [place] [address]- 9804 Dec, 2014 [facility] [place] [facility] [address] [id number] [place] [address]- 8857 Dec, 2014 [facility] [place] [facility] [address] [facility] [id number] [place] [address] Dec, 2014 [facility] [place] [facility] [address] [facility] [id number], [place] [address] Dec, 2014 [facility] [place] [facility] [address] [id number], [place] [address] Dec, 2014 [facility] [place] [facility] [address] [id number] [place] [address] Dec, 2014 [facility] [place] [facility] [address] [facility] [id number] [place] [address] Nov, [facility] [place] [facility] [address] [facility] [id number] [place] [address] Nov, [facility] [place] [facility] [address] [id number] [place] [address] Nov, [facility] [address] [id number] [place] [address] Nov, [facility] [place] [facility] [address] [id number] [place] [address] Nov, [facility] [address] [id number] [place] [address] Nov, [facility] [place] [facility] [address] [id number] [place] [id number] Nov, [facility] [place] [facility] [address] [id number] [place] [address] Nov, [facility] [place] [facility] [address] [id number] [place] [address] Nov, [facility] [place] [facility] [address] [id number] [place] [id number] Nov, [facility] [place] [facility] [address] [id number] [place] [address] Nov, [facility] [place] [facility] [address] [id number] [place] [address] Nov, [facility] [place] [facility] [address] [id number] [place] [address] Oct, [facility] [place] [facility] [address] [id number] [place] [address] Oct, [facility] [place] [facility] [address] [id number] [place] [address] Oct, [facility] [place] [facility] [address] [id number] [place] [address] Oct, [facility] [place] [facility] [address] [id number] [place] [address] 6446 Oct, [facility] [place] [facility] [address] [id number] [place] [address] 1026 Oct, [facility] [place] [facility] [address] [id number] [place] [address] 1868 Oct, [facility] [place] [facility] [address] [id number] [place] [address] 4260 Oct, [facility] [place] [facility] [address] [id number] [place] [address] Oct, [facility] [place] [facility] [address] [id number] [place] [address] 7781 Oct, [facility] [place] [facility] [address] [id number] [place] [address] 1706 Oct, [facility] [place] [facility] [address] [id number] [place] [address] 7971 Oct, [facility] [place] [facility] [address] [id number] [place] [address]41 Sep, [facility] [place] [facility] [address] [id number] [place] [address] 9717 Sep, [facility] [place] [facility] [address] [id number] [place] [address] 3627 Sep, [facility] [place] [facility] [address] [id number] [place] [address]- 0952 Sep, [facility] [place] [facility] [address] [id number] [place] [address]- 8680 Sep, [facility] [place] [facility] [address] [id number] [place] [address]- 7932 Sep, [facility] [place] [facility] [address] [id number] [place] [address]- 9931 Sep, [facility] [place] [facility] [address] [id number] [place] [address]- 6502 Sep, [facility] [place] [facility] [address] [id number] [place] [address]- 3975 Aug, [facility] [place] [facility] [address] [id number], [place] [address] 7665 Aug, [facility] [place] [facility] [address] [id number] [place] [address] 3018 Aug, [facility] [place] [facility] [address] [id number] [place] [address]- 1829 Aug, [facility] [place] [facility] [address] [id number] [place] [address]- 7971 Aug, [facility] [place] [facility] [address] [id number] [place] [address]- 5585 Aug, [facility] [place] [facility] [address] [id number] [place] [address]- 6400 Aug, [facility] [place] [facility] [address] [id number] [place] [address]- 6686 Aug, [facility] [place] [facility] [address] [id number] [place] [address]- 8876 Aug, [facility] [place] [facility] [address] [id number] [place] [address]- 4369 Aug, [facility] [place] [facility] [address] [id number] [place] [address]- 8587 Aug, [facility] [place] [facility] [address] [id number] [place] [address]- 6981 Aug, [facility] [place] [facility] [address] [id number], [place] [address]- 8495 Aug, [facility] [place] [facility] [address] [id number], [place] [address]- 9510 Jul, [facility] [place] [facility] [address] [id number] [place] [address]- 4553 22 Jul, 2014 [facility] [place] [facility] [address] [id number] [place] [address]- 8898 Jul, [facility] [place] [facility] [address] [id number] [place] [address]- 4777 19 Jul, 2013 [facility] [place] [facility] [address] [id number] [place] [address]- 3671 Jun, [facility] [place] [facility] [address] [id number] [place] [address]- 7036 Jun, [facility] [place] [facility] [address] [id number] [place] [address]- 0447 Jun, [facility] [place] [facility] [address] [id number] [place] [address]- 8822 Jun, [facility] [place] [facility] [address] [id number] [place] [address]- 0427 Jun, [facility] [place] [facility] [address] [id number] [place] [address]- 1426 Jun, [facility] [place] [facility] [address] [id number] [place] [address]- 5463 May, [facility] [place] [facility] [address] [id number] [place] [address]- 7506 May, [facility] [place] [facility] [address] [id number] [place] [address]- 9153 May, [facility] [place] [facility] [address] [id number] [place] [address]- 6880 May, [facility] [place] [facility] [address] [id number] [place] [address]- 8876 Apr, [facility] [place] [facility] [address] [id number] [place] [address]- 0971 Apr, [facility] [place] [facility] [address] [id number] [place] [address]- 3199 March, [facility] [place] [facility] [address] [id number] [place] [address]- 2395 March, [facility] [place] [facility] [address] [id number] [place] [address]- 0695 March, [facility] [place] [facility] [address] [id number] [place] [address]- 1547 March, [facility] [address] [id number] [place] [address]- 9109 March, [facility] [place] [facility] [address] [id number] [place] [address]- 5179 March, [facility] [place] [facility] [address] [id number] [place] [address]- 9222 Feb, [facility] [place] [facility] [address] [id number] [place] [address]- 8628 Feb, [facility] [place] [facility] [address] [id number] [place] [address]- 2917 Dec, [facility] [place] [facility] [address] [id number] [place] [address]- 2554 Dec, [facility] [place] [facility] [address] [id number] [place] [address]- 0247 Nov, [facility] [place] [facility] [address] [id number] [place] [address]- 5441 Nov, [facility] [place] [facility] [address] [id number] [place] [address]- 5746 Sep, [facility] [place] [facility] [address] [id number] [place] [address]- 8556 Sep, [facility] [place] [facility] [address] [id number] [place] [address]- 2014 Sep, [facility] [place] [facility] [address] [id number] [place] [address]- 8597 Sep, [facility] [place] [facility] [address] [id number] [place] [address]- 0017 Sep, [facility] [place] [facility] [address] [id number] [place] [address]- 4127 Sep, [facility] [place] [facility] [address] [id number] [place] [address] Sep, [facility] [place] [facility] [address] [id number] [place] [address]- 1558 Aug, [facility] [address] [id number] [place] [address]- 7957 30 Aug, 2013 [facility] [place] [facility] [address] [id number] [place] [address]- 7067 Aug, [facility] [place] [facility] [address] [id number] [place] [address]- 4345 Aug, [facility] [place] [facility] [address] [id number] [place] [address]- 1030 Aug, [facility] [place] [facility] [address] [id number] [place] [address]- 0566 Aug, [facility] [place] [facility] [address] [id number] [place] [address]- 2287 Jul, [facility] [place] [facility] [address] [id number] [place] [address]- 3280 Jul, [facility] [place] [facility] [address] [id number] [place] [address]- 0610 16 Jul, 2013 [facility] [place] [facility] [address] [id number] [place] [address]- 4107 Jul, [facility] [place] [facility] [address] [id number] [place] [address]- 2765 Jun, [facility] [place] [facility] [address] [id number] [place] [address]- 7714 Jun, [facility] [place] [facility] [address] [id number], [place] [address]- 2876 Jun, [facility] [place] [facility] [address] [id number] [place] [address]- 2390 Jun, [facility] [place] [facility] [address] [id number] [place] [address]- 3770 Jun, [facility] [place] [facility] [address] [id number] [place] [address]- 7874 Jun, [facility] [place] [facility] [address] [id number] [place] [address]- 5588 Jun, [facility] [place] [facility] [address] [id number] [place] [address]- 5136 May, [facility] [place] [facility] [address] [id number] [place] [address]- 3286 May, [facility] [place] [facility] [address] [id number] [place] [address]- 0680 16 May, 2013 [facility] [place] [facility] [address] [id number] [place] [address]- 4520 15 May, 2013 [facility] [place] [facility] [address] [id number] [place] [address]- 2088 May, [facility] [place] [facility] [address] [id number] [place] [address]- 1582 May, [facility] [place] [facility] [address] [id number] [place] [address]- 0000 May, [facility] [place] [facility] [address] [id number] [place] [address]- 3540 Apr, [facility] [place] [facility] [address] [id number] [place] [address]- 7918 Apr, [facility] [place] [facility] [address] [id number] [place] [address]- 7831 Apr, [facility] [place] [facility] [address] [id number] [place] [address]- 3086 Apr, [facility] [place] [facility] [address] [id number] [place] [address]- 0577 Apr, [facility] [place] [facility] [address] [id number] [place] [address]- 3805 Apr, [facility] [place] [facility] [address] [id number] [place] [address]- 8196 Apr, [facility] [place] [facility] [address] [id number] [place] [address]- 8067 18 Apr, 2013 [facility] [place] [facility] [address] [id number] [place] [address]- 5963 17 Apr, 2013 [facility] [place] [facility] [address] [id number] [place] [address]- 7620 14 Apr, 2013 [facility] [place] [facility] [address] [id number] [place] [address]- 5157 14 Apr, 2013 [facility] [place] [facility] [address] [id number] [place] [address]- 1594 11 Apr, 2013 [facility] [place] [facility] [address] [id number] [place] [address]- 6502 10 Apr, 2013 [facility] [place] [facility] [address] [id number] [place] [address]- 0322 09 Apr, 2013 [facility] [place] [facility] [address] [id number] [place] [address]- 8879 07 Apr, 2013 [facility] [place] [facility] [address] [id number], [place] [address]- 6449 06 Apr, 2013 [facility] [place] [facility] [address] [id number] [place] [address]- 8746 06 Apr, 2013 [facility] [place] [facility] [address] [id number] [place] [address]- 7411 05 Apr, 2013 [facility] [place] [facility] [address] [id number], [place] [address]- 1303 Apr, [facility] [place] [facility] [address] [id number], [place] [address]- 2256 March, [facility] [place] [facility] [address] [id number] [place] [address]- 1992 March, [facility] [place] [facility] [address] [id number], [place] [address]- 9029 March, [facility] [place] [facility] [address] [id number] [place] [address]- 1168 March, [facility] [place] [facility] [address] [id number] [place] [address]- 0792 13 Mar, 2013 [facility] [address] [id number] [place] [address]- 3263 March, [facility] [address] [id number] [place] [address]- 3418 March, [facility] [address] [id number] [place] [address]- 2005 Feb, [facility] [address] [id number] [place] [address]- 1612 Feb, [facility] [address] [id number] [place] [address]- 2625 27 Jan, 2013 [facility] [address] [id number] [place] [address]- 6908 18 Jan, 2013 [facility] [address] [id number] [place] [address]- 3148 15 Jan, 2013 [facility] [address] [id number] [place] [address]- 5120 14 Jan, 2013 [facility] [address] [id number] [place] [address]- 6135 13 Jan, 2013 [facility] [address] [id number] [place] [address]- 4760 12 Jan, 2013 [facility] [address] [id number] [place] [address]- 0937 11 Jan, 2013 [facility] [address] [id number] [place] [address]- 9288 09 Jan, 2013 [facility] [place] [facility] [address] [id number] [place] [address]99 08 Jan, 2013 [facility] [address] [id number] [id number] [address] 07 Jan, 2013 [facility] [address] [id number] [place] [address]- 0961 Jan, [facility] [place] [facility] [address] [id number] [place] [address]- 3625 Nov, [facility] [place] [facility] [address] [id number] [place] [address]- 8332 Oct, [facility] [place] [facility] [address] [id number] [place] [address]094 Oct, [facility] [place] [facility] [address] [id number] [place] [address]- 1029 Oct, [facility] [place] [facility] [address] [id number] [place] [address]- 1385 Oct, [facility] [place] [facility] [address] [id number] [place] [address]- 7556 Sep, [facility] [place] [facility] [address] [id number] [place] [address]- 3707 Sep, [facility] [place] [facility] [address] [id number] [place] [address]- 4883 Sep, [facility] [place] [facility] [address] [id number] [place] [address]- 7481 Sep, [facility] [place] [facility] [address] [id number] [place] [address]- 1070 Sep, [facility] [place] [facility] [address] [id number] [place] [address]- 9768 Sep, [facility] [place] [facility] [address] [id number] [place] [address]- 4218 Sep, [facility] [place] [facility] [address] [id number] [place] [address]- 2570 Sep, [facility] [place] [facility] [address] [id number] [place] [address]- 7711 Sep, [facility] [place] [facility] [address] [id number] [place] [address]- 2317 Sep, [facility] [place] [facility] [address] [id number] [place] [address]- 7070 Sep, [facility] [place] [facility] [address] [id number] [place] [address]- 8960 Aug, [facility] [place] [facility] [address] [id number] [place] [address]497 Aug, [facility] [place] [facility] [address] [id number] [place] [address]- 5211 Aug, [facility] [place] [facility] [address] [id number] [place] [address]- 2773 28 Jul, 2012 [facility] [place] [facility] [address] [id number] [place] [address]- 9768 25 Jul, 2012 [facility] [place] [facility] [address] [id number] [place] [address]- 5418 19 Jul, 2012 [facility] [place] [facility] [address] [id number] [place] [address]- 6865 17 Jul, 2012 [facility] [place] [facility] [address] [id number] [place] [address]- 6380 20 Jun, 2012 [facility] [place] [facility] [address] [id number] [place] [address]- 3710 16 Jun, 2012 [facility] [place] [facility] [address] [id number] [place] [address]- 0708 15 Jun, 2012 [facility] [place] [facility] [address] [id number] [place] [address]- 5368 Jun, [facility] [place] [facility] [address] [id number] [place] [address]- 5868 Jun, [facility] [place] [facility] [address] [id number] [place] [address]- 5502 March, [facility] [place] [facility] [address] [id number] [place] [address]05 Feb, [facility] [place] [facility] [address] [id number] [place] [address]- 2063 Jan, [facility] [place] [facility] [address] [id number] [place] [address]- 9699 27 Jan, 2012 [facility] [address] [id number] [place] [address]- 3984 22 Jan, 2012 [facility] [place] [facility] [address] [id number] [place] [address]- 8346 14 Jan, 2012 [facility] [address] [id number] [place] [address]- 5986 14 Jan, 2012 [facility] [place] [facility] [address] [id number] [place] [address]- 5092 14 Jan, 2012 [facility] [place] [facility] [address] [id number] [place] [address]- 5178 28 Dec, 2011 [facility] [place] [facility] [address] [id number] [place] [address]- 1182 27 Dec, 2011 [facility] [place] [facility] [address] [id number] [place] [address]- 4525 23 Dec, 2011 [facility] [address] [id number] [place] [address]- 3976 21 Dec, 2011 [facility] [place] [facility] [address] [id number] [place] [address]- 3665 20 Dec, 2011 [facility] [place] [facility] [address] [id number] [place] [address]- 0878 19 Dec, 2011 [facility] [place] [facility] [address] [id number] [place] [address]- 7429 17 Dec, 2011 [facility] [place] [facility] [address] [id number] [place] 4376 16 Dec, 2011 [facility] [place] [facility] [address] [id number] [place] [address]- 1921 31 Nov, 2011 [facility] [place] [facility] [address] [id number] [place] [address]- 8043 Oct, [facility] [place] [facility] [address] [id number], [place] [address]- 3468 Sep, [facility] [address] [id number], [place] [address]- 9174 Sep, [facility] [address] [id number], [place] [address]- 9106 Sep, [facility] [address] [id number], [place] [address]- 8790 Sep, [facility] [address] [id number], [place] [address]- 4304 Sep, [facility] [address] [id number] 5959 Sep, [facility] [id number] [address] Jan, [facility] [address] [id number] [address]168 Apr, IMMUNIZATIONS No Known Immunizations SOCIAL HISTORY Never Assessed REASON FOR VISIT LLQ pain for 4 days after coughing. reports she has had pain ever since. [place], [facility] with [facility], last BM was yesterday et normal for her. PLAN OF CARE Activity Details Follow Up prn Reason: VITAL SIGNS Height 66 in 2018-03-30 Temperature 97.9 degrees Fahrenheit 2018-03-30 Heart Rate 96 bpm 2018-03-30 Respiratory Rate 20 2018-03-30 Blood pressure systolic 108 mmHg 2018-03-30 Blood pressure diastolic 70 mmHg 2018-03-30 MEDICATIONS Medication Instructions Dosage Frequency Start Date End Date Duration Status Lamictal 200 mg Orally Once a day 1 tablet 24h Feb, Active Klonopin 0.5 MG Orally three times a day as needed 1 tablet Aug, 30 days Active Pyridium 200 mg Orally Three times a day 1 tablet after meals 8h March, March, 05 days Active Remeron 45 MG Orally Once a day at bedtime 1 tablet March, 30 day(s) Active Cipro 500 mg Orally every 12 hrs 1 tablet 12h March, March, 10 day(s) Active Oxycodone-Acetaminophen 10-325 MG Orally every 4 hrs 1 tablet as needed 4h Not-Taking Ibuprofen 800 MG Orally Three times a day 1 tablet with food or milk as needed 8h March, Active Abilify 15 mg Orally Once a day 1/2 tablet 24h Feb, Active RESULTS No Results PROCEDURES Procedure Date Ordered Result Body Site URINALYSIS, AUTO, W/O SCOPE March 30, 2018 URINE CULTURE/COLONY COUNT March 30, 2018 INSTRUCTIONS MEDICATIONS ADMINISTERED No Known Medications [...]
--- OUTSIDE RECORDS SUMMARY | 2018-08-05 20:25 | XMS REPORT ---
[facility] Address [address] [place] [address] Care Team Providers Care Performance Improvement Coordinator Name Role Phone TOMASZ, MARGARITA Unavailable PROBLEMS Type Condition ICD9-CM Code HSP66-QX Code Onset Dates Condition Status SNOMED Code Problem Generalized anxiety disorder F41.1 Active 15728647 Problem Acute non intractable tension-type headache G44.209 Active 839142360 Problem Acute right-sided low back pain with right-sided sciatica M54.41 Active 819701960 Problem Post traumatic stress disorder F43.10 Active 05789927 Problem Bipolar disorder, current episode mixed, moderate F31.62 Active 923612859 Problem Endometriosis N80.9 Active 394423752 Problem Borderline personality disorder F60.3 Active 67109905 ALLERGIES Substance Reaction Event Type Date Status Thioridazine HCl tachycardia Drug Allergy March, Active Pristiq Unknown Drug Allergy March, Active Penicillin V Potassium rash Drug Allergy March, Active Diclofenac Sodium nausea Drug Allergy March, Active Depakote fatigue Drug Allergy March, Active ENCOUNTERS Encounter Location Date Diagnosis [facility] [id number] [address] Jul, [facility] [id number] [place] [address] [id number] Jun, [facility] [id number] [place] [address] 72689- 1553 Jun, Bipolar disorder, current episode mixed, moderate F31.62 [facility] [id number] [place] [address] 80244- 7594 May, Palpitations R00.2 [facility] [id number] [place] [address] 33725- 8132 May, Palpitations R00.2 [facility] [id number] [place] [address] 85378- 0217 12 May, 2018 Palpitations R00.2 and Frequent bowel movements R19.4 [facility] [id number] [place] [address] 49496- 2229 05 May, 2018 Bipolar disorder, current episode mixed, moderate F31.62 ; Post traumatic stress disorder F43.10 and Borderline personality disorder F60.3 [facility] [id number] [place] [address] [id number] 15 Apr, 2018 Dental examination Z01.20 [facility] [id number] [place] [address] 04373 -4366 15 Apr, 2018 [facility] [id number] [place] [address] 77100- 9417 15 Apr, 2018 Dental examination Z01.20 [facility] [id number] [place] [address] 34915 -5417 15 Apr, 2018 Tooth pain K08.89 [facility] [id number] [place] [address] 35875- 7052 06 Apr, 2018 Bipolar disorder, current episode mixed, moderate F31.62 ; Post traumatic stress disorder F43.10 and Borderline personality disorder F60.3 [facility] [id number] [place] [address] 36654 -4048 March, Abdominal pain R10.9 ; UTI symptoms R39.9 and Other microscopic hematuria R31.29 [facility] [id number] [place] [address] 86062- 4649 March, [facility] [id number] [place] [address] 59470- 0245 March, Bipolar disorder, current episode mixed, moderate F31.62 ; Post traumatic stress disorder F43.10 and Borderline personality disorder F60.3 [facility] [id number] [place] [address] 33801- 9754 Feb, Encounter for immunization Z23 [facility] [id number] [place] [address] 72899- 8203 16 Feb, 2018 Bipolar disorder, current episode mixed, moderate F31.62 ; Post traumatic stress disorder F43.10 and Borderline personality disorder F60.3 [place] [id number] [place] [address] 23535- 4429 11 Feb, 2018 Bipolar disorder, current episode mixed, moderate F31.62 ; Post traumatic stress disorder F43.10 ; Borderline personality disorder F60.3 and 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 [place] [address] 40630- 2221 30 Jan, 2018 Encounter for immunization Z23 [facility] [address] 91848- 6771 Jan, [place] [address] 28288- 5723 Jan, Bipolar disorder, current episode mixed, moderate F31.62 [facility] [id number] [place] [address] 26139 -2230 Jan, Lumbar back pain M54.5 [place] [address] 96328- 1264 Dec, Low back pain M54.5 [place] [address] 69660- 4301 13 Dec, 2017 Bipolar disorder, current episode mixed, moderate F31.62 [facility] [id number] [place] [address] 96189- 6591 Dec, Generalized anxiety disorder F41.1 and Bipolar disorder, current episode mixed, moderate F31.62 [facility] [id number] [place] [address] 89593 -6466 Nov, Acute non intractable tension-type headache G44.209 [place] [address] 14342- 0838 Nov, Bipolar disorder, current episode mixed, moderate F31.62 ; Post traumatic stress disorder F43.10 and Borderline personality disorder F60.3 [place] [address] 24421- 2620 Nov, Bipolar disorder, current episode mixed, moderate F31.62 [facility] [id number] [place] [address] 74911 -5820 Nov, Abdominal pain R10.9 ; History of PCOS Z87.42 ; History of endometriosis Z87.42 and Pelvic pain R10.2 [place] [address] 75913- 3182 Nov, [facility] [place] [address] [address] 77989 -0415 Oct, History of PCOS Z87.42 ; History of endometriosis Z87.42 and Pain R52 [place] [address] 91779- 8938 Oct, Bipolar disorder, current episode mixed, moderate F31.62 ; Post traumatic stress disorder F43.10 and Borderline personality disorder F60.3 [place] [id number] [place] [address] 04124- 0205 Oct, Bipolar disorder, current episode mixed, moderate F31.62 [place] [id number] [place] [address] 34301- 3430 Sep, Bipolar disorder, current episode mixed, moderate F31.62 ; Post traumatic stress disorder F43.10 ; Borderline personality disorder F60.3 and 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 [place] [id number] [place] [address] 76545- 8192 Sep, Bipolar disorder, current episode mixed, moderate F31.62 [facility] [id number] [place] [address] 87861 -0902 Sep, Endometriosis N80.9 and Acute right-sided low back pain with right-sided sciatica M54.41 [facility] [address] [place] [address] 59222- 1509 Aug, [facility] [id number] [place] [address] 25321- 4079 Aug, Bipolar disorder, current episode mixed, moderate F31.62 ; Post traumatic stress disorder F43.10 and Borderline personality disorder F60.3 [place] [id number] [place] [address] 54288- 6091 11 Aug, 2017 Bipolar disorder, current episode mixed, moderate F31.62 ; Post traumatic stress disorder F43.10 and Borderline personality disorder F60.3 [place] [id number] [place] [address] 13261- 2154 13 Jul, 2017 Bipolar disorder, current episode mixed, moderate F31.62 ; Post traumatic stress disorder F43.10 and Borderline personality disorder F60.3 [facility] [id number] [place] [address] 50276 -8307 11 Jul, 2017 Pharyngitis, unspecified etiology J02.9 and Streptococcal pharyngitis J02.0 [place] [id number] [place] [address] 47219- 2646 16 Jun, 2017 Bipolar disorder, current episode mixed, moderate F31.62 ; Post traumatic stress disorder F43.10 and Borderline personality disorder F60.3 [place] [address] [place] [address] 75922- 3845 May, [place] [id number] [place] [address] 62915- 5894 May, [facility] [id number] [place] [address] 72911- 7373 May, Bipolar disorder, current episode mixed, moderate F31.62 and Generalized anxiety disorder F41.1 [place] [address] [place] [address] 95620- 0766 March, Bipolar disorder, current episode mixed, moderate F31.62 and Generalized anxiety disorder F41.1 [facility] [address], [place] [address] March, Pelvic pain R10.2 [facility] [id number] [place] [address] March, [facility] [id number] [place] [address] 40792- 6985 Feb, Bipolar disorder, current episode mixed, moderate F31.62 and Generalized anxiety disorder F41.1 [facility] [id number] [place] [address] 13827- 9916 Jan, [facility] [id number] [place] [address] 65088- 3488 Jan, Bipolar disorder, current episode mixed, moderate F31.62 [facility] [id number] [place] [address] 18281- 4394 Jan, Bipolar disorder, current episode mixed, moderate F31.62 [facility] [id number] [place] [address] 36272- 8410 Jan, Bilateral low back pain without sciatica M54.5 [facility] [id number] [place] [address] [id number] Jan, Dental caries K02.9 and Dental examination Z01.20 [facility] [id number] [place] [address] [id number] Jan, Encounter for dental examination and cleaning without abnormal findings Z01.20 [facility] [address] [place] [address] 25150- 6334 Jan, Bipolar disorder, current episode mixed, moderate F31.62 and Generalized anxiety disorder F41.1 [facility] [address] [place] [address] 42426- 2981 Dec, [facility] [address] [place] [address] 03243- 0951 Dec, Bipolar disorder, current episode mixed, moderate F31.62 and Generalized anxiety disorder F41.1 [facility] [address] [place] [address] 02833- 6691 03 Dec, 2016 Other fatigue R53.83 and Orthostatic hypotension I95.1 [facility] [address] [id number] Nov, Dental examination Z01.20 [facility] [address] 37330 -5541 Nov, Bronchitis J40 [facility] [id number] [place] [address] 01166- 1129 Oct, Generalized anxiety disorder F41.1 [place] [id number] [place] [address] 00032- 9705 Sep, Bipolar disorder, current episode mixed, moderate F31.62 and Generalized anxiety disorder F41.1 [place] [id number] [place] [address] 10615- 1121 Sep, Bipolar disorder, current episode mixed, moderate F31.62 and Generalized anxiety disorder F41.1 [facility] [id number] [place] [address] 14177 -1549 08 Jul, 2016 Upper respiratory tract infection, unspecified type J06.9 [place] [id number] [place] [address] 53035- 8938 Jun, Bipolar disorder, current episode mixed, moderate F31.62 and Generalized anxiety disorder F41.1 [facility] [id number] [place] [address] 82173- 7916 Apr, [place] [address] 65490- 5881 02 Apr, 2016 Encounter for test, result positive Z32.01 [facility] [id number] [place] [address] 56871- 7084 March, [facility] [address] 32063- 0674 March, Bipolar disorder, current episode mixed, moderate F31.62 and Generalized anxiety disorder F41.1 [facility] [address] [place] [address] 96887- 4802 March, Bipolar disorder, current episode mixed, moderate F31.62 and Generalized anxiety disorder F41.1 [facility] [id number] [place] [address] 84177- 6294 March, [facility] [id number] [place] [address] 10513- 8434 March, [facility] [id number] [place] [address] 34362- 7595 Feb, [facility] [id number] [place] [address] 25033- 0452 Feb, [facility] [id number] [place] [address] 07193- 3005 Feb, Bipolar disorder, current episode mixed, moderate F31.62 and Generalized anxiety disorder F41.1 [facility] [id number] [place] [address] 04072- 6134 Jan, Abdominal pain R10.9 [facility] [id number] [place] [address] 41952- 4130 14 Jan, 2016 [facility] [id number] [place] [address] 41916- 6915 Dec, Dental examination Z01.20 [facility] [id number] [place] [address] 96812- 1738 Dec, Dental examination Z01.20 and Dental caries K02.9 [facility] [id number] [place] [address] 07743- 9680 15 Dec, 2015 Bipolar disorder, current episode mixed, moderate F31.62 and Generalized anxiety disorder F41.1 [facility] [id number] [place] [address] 04717- 4887 Dec, [facility] [address] [place] [address] 94954- 6360 Nov, Bipolar disorder, current episode mixed, moderate F31.62 ; Generalized anxiety disorder F41.1 and Seizure-like activity R56.9 [place] [id number] [place] [address] 86829- 7489 Oct, [place] [address] 34174- 3835 Oct, Bipolar disorder, current episode mixed, moderate F31.62 [place] [id number] [place] [address] 63229- 0158 Oct, Well woman exam Z01.419 ; Encounter [...] Tobacco use Z72.0 and Hot flashes N95.1 [place] [id number] [place] [address] 35286- 7975 Oct, Seizure-like activity R56.9 and Irregular periods N92.6 [place] [id number] [place] [address] 78136- 5138 Oct, Bipolar disorder, current episode mixed, moderate F31.62 ; Generalized anxiety disorder F41.1 and Underweight R63.6 [place] [id number] [place] [address] 54719- 6602 Oct, [place] [id number] [place] [address] 31540- 4925 Oct, Generalized anxiety disorder F41.1 and Unspecified mood [ affective] disorder F39 [facility] [address] [place] [address] Oct, Back pain M54.9 and Anxiety F41.9 [facility] [address] 07013- 0078 Oct, [facility] [id number] [place] [address] 60418 -1885 Sep, Arm pain, left M79.602 [facility] [address] 61103- 7139 Sep, [facility] [address] [id number] Sep, Dental examination Z01.20 and Dental caries K02.9 [facility] [id number] [place] [address] 45401- 1861 Sep, Generalized anxiety disorder F41.1 and Unspecified episodic mood disorder F39 [facility] [address] 90048- 4480 Sep, Bilateral low back pain without sciatica M54.5 and Seizure- like activity R56.9 [facility] [address] 41122- 2410 Aug, [facility] [id number] [place] [address] 16262- 8468 Aug, [facility] [address] 44096- 8019 Aug, [facility] [id number] [place] [address] 87190- 1461 Aug, Visual changes H53.9 and Bilateral low back pain without sciatica M54.5 [facility] [id number] [place] [address] 73022- 3224 Jul, [facility] [id number] [place] [address] 34114- 0653 Jun, Bipolar I disorder, most recent episode (or current) mixed, moderate 296.62 ; Generalized anxiety disorder 300.02 and High risk medication use V58.69 [facility] [address] [place] [address] 99479- 5356 Jun, [facility] [id number] [place] [address] 03752- 6821 May, [facility] [id number] [place] [address] 16036- 5125 May, Bipolar I disorder, most recent episode (or current) mixed, moderate 296.62 and Generalized anxiety disorder 300.02 [facility] [id number] [place] [address] [id number] May, Dental examination V72.2 [facility] [id number] [place] [address] 93895- 6817 March, Bipolar I disorder, most recent episode (or current) mixed, moderate 296.62 and Generalized anxiety disorder 300.02 [facility] [id number] [place] [address] 87899- 1149 March, [facility] [id number] [place] [address] 84003- 3742 March, [facility] [id number] [place] [address] 93624- 5749 March, Underweight 783.22 ; Hand pain, right 729.5 and Reflux gastritis 535.40 [facility] [id number] [place] [address] 74425- 5737 Feb, [facility] [id number] [place] [address] 28839- 7156 Feb, [facility] [id number] [place] [address] 39108- 3196 Jan, [facility] [id number] [place] [address] 16042- 9331 Jan, [facility] [address] 10733- 0726 16 Jan, 2015 [facility] [place] [facility] [address] [id number] [place] [address]- 9969 16 Jan, 2015 [facility] [place] [facility] [address] [id number] [place] [address]- 2935 Jan, [facility] [place] [facility] [address] [facility] [id number] [place] [address]- 6562 Jan, [facility] [place] [facility] [address] [id number] [place] [address]- 1474 Jan, [facility] [place] [facility] [address] [id number] [place] [address]- 9180 Jan, [facility] [place] [facility] [address] [facility] [id number] [place] [address]- 8908 Jan, [facility] [place] [facility] [address] [facility] [id number] [place] [address]- 8107 Jan, [facility] [place] [facility] [address] [facility] [id number], [place] [address]- 6276 Jan, [facility] [place] [facility] [address] [facility] [id number] [place] [address]- 3306 Jan, [facility] [place] [facility] [address] [facility] [id number] [place] [address]- 3526 Dec, [facility] [place] [facility] [address] [id number], [place] [address]- 8321 Dec, 2014 [facility] [place] [facility] [address] [facility] [id number], [place] [address]- 2207 Dec, 2014 [facility] [place] [facility] [address] [id number] [place] [address]- 6304 Dec, 2014 [facility] [place] [facility] [address] [facility] [id number], [place] [address]- 8892 18 Dec, 2014 [facility] [place] [facility] [address] [facility] [id number], [place] [address]- 7005 17 Dec, 2014 [facility] [place] [facility] [address] [id number] [place] [address]- 3361 Dec, 2014 [facility] [place] [facility] [address] [id number] [place] [address]- 2164 Dec, 2014 [facility] [place] [facility] [address] [id number] [place] [address]- 9295 Dec, 2014 [facility] [place] [facility] [address] [id number] [place] [address]- 2004 Dec, 2014 [facility] [place] [facility] [address] [id number] [place] [address]- 8714 Dec, 2014 [facility] [place] [facility] [address] [id number] [place] [address]- 2396 Dec, 2014 [facility] [place] [facility] [address] [facility] [id number] [place] [address]- 6072 Dec, 2014 [facility] [place] [facility] [address] [id number], [place] [address]- 4229 Dec, 2014 [facility] [place] [facility] [address] [id number] [place] [address]- 7784 Dec, 2014 [facility] [place] [facility] [address] [facility] [id number] [place] [address]- 5220 Dec, 2014 [facility] [place] [facility] [address] [facility] [id number], [place] [address]- 5736 Dec, 2014 [facility] [place] [facility] [address] [id number], [place] [address]- 0784 Dec, 2014 [facility] [place] [facility] [address] [id number] [place] [address]- 6678 Dec, 2014 [facility] [place] [facility] [address] [facility] [id number] [place] [address]- 9918 Nov, [facility] [place] [facility] [address] [facility] [id number] [place] [address]- 4690 Nov, [facility] [place] [facility] [address] [facility] [id number] [place] [address] Nov, [facility] [place] [facility] [address] [id number] [place] [address] Nov, [facility] [place] [facility] [address] [id number] [place] [address] Nov, [facility] [place] [facility] [address] [id number] [place] [address] Nov, [facility] [place] [facility] [address] [facility] [id number] [place] [id number] Nov, [facility] [place] [facility] [address] [id number] [place] [address] Nov, [facility] [place] [facility] [address] [id number] [place] [address] Nov, [facility] [place] [facility] [id number], [place] [id number] Nov, [facility] [place] [facility] [address] [id number] [place] [address] Nov, [facility] [place] [facility] [address] [id number] [place] [address] Nov, [facility] [place] [facility] [address] [id number] [place] [address] Oct, [facility] [place] [facility] [address] [id number] [place] [address] Oct, [facility] [place] [facility] [address] [id number] [place] [address] Oct, [facility] [place] [facility] [address] [id number] [place] [address] Oct, [facility] [place] [facility] [address] [id number] [place] [address] Oct, [facility] [place] [facility] [address] [id number] [place] [address] Oct, [facility] [place] [facility] [address] [id number] [place] [address] Oct, [facility] [place] [facility] [address] [id number] [place] [address] Oct, [facility] [place] [facility] [address] [id number] [place] [address] Oct, [facility] [place] [facility] [address] [id number] [place] [address] Oct, [facility] [place] [facility] [address] [id number] [place] [address] Oct, [facility] [place] [facility] [address] [id number] [place] [address] Oct, [facility] [place] [facility] [address] [id number] [place] [address] Sep, [facility] [place] [facility] [address] [id number] [place] [address] 67[address] Sep, [facility] [place] [facility] [address] [id number] [place] [address] Sep, [facility] [place] [facility] [address] [id number] [place] [address] 8071 Sep, [facility] [place] [facility] [address] [id number] [place] [address] 5962 Sep, [facility] [place] [facility] [address] [id number] [place] [address] 65[address] Sep, [facility] [place] [facility] [address] [id number] [place] [address]- 9434 Sep, [facility] [place] [facility] [address] [id number] [place] [address]- 2575 Sep, [facility] [place] [facility] [address] [id number] [place] [address]- 6342 Aug, [facility] [place] [facility] [address] [id number] [place] [address] 3049 Aug, [facility] [place] [facility] [address] [id number] [place] [address]- 7981 Aug, [facility] [place] [facility] [address] [id number] [place] [address]- 5385 Aug, [facility] [place] [facility] [address] [id number] [place] [address]- 4750 Aug, [facility] [place] [facility] [address] [id number] [place] [address]- 4238 Aug, [facility] [place] [facility] [address] [id number] [place] [address]- 4692 Aug, [facility] [place] [facility] [address] [id number] [place] [address]- 6388 Aug, [facility] [place] [facility] [address] [id number] [place] [address]- 1139 Aug, [facility] [place] [facility] [address] [id number] [place] [address]- 8438 Aug, [facility] [place] [facility] [address] [id number] [place] [address]- [address] Aug, [facility] [place] [facility] [address] [id number] [place] [address]- 8067 Aug, [facility] [place] [facility] [address] [id number], [place] [address] Aug, [facility] [place] [facility] [address] [id number], [place] [address] Jul, 2013 [facility] [place] [facility] [address] [id number] [place] [address]- 3534 22 Jul, 2014 [facility] [place] [facility] [address] [id number] [place] [address]- 8143 Jul, [facility] [place] [facility] [address] [id number] [place] [address]- 3156 19 Jul, 2013 [facility] [place] [facility] [address] [id number] [place] [address]- 4601 Jun, [facility] [place] [facility] [address] [id number] [place] [address] 1917 Jun, [facility] [place] [facility] [address] [id number] [place] [address]- 4136 Jun, [facility] [place] [facility] [address] [id number] [place] [address]- 5593 Jun, [facility] [place] [facility] [address] [id number] [place] [address]- 7242 Jun, [facility] [place] [facility] [address] [id number] [place] [address]- 0531 Jun, [facility] [place] [facility] [address] [id number] [place] [address]- 6783 May, [facility] [place] [facility] [address] [id number] [place] [address]- 33[address] May, [facility] [place] [facility] [address] [id number] [place] [address]- 7701 May, [facility] [place] [facility] [address] [id number] [place] [address]- 4[address] May, [facility] [place] [facility] [address] [id number] [place] [address]- 4821 Apr, [facility] [place] [facility] [address] [id number] [place] [address]- 8257 Apr, [facility] [place] [facility] [address] [id number] [place] [address]- 1587 March, [facility] [place] [facility] [address] [id number] [place] [address]- 9401 March, [facility] [place] [facility] [address] [id number] [place] [address]- 9474 March, [facility] [place] [facility] [address] [id number] [place] [address]- 6576 March, [facility] [place] [facility] [address] [id number] [place] [address]- 0437 March, [facility] [place] [facility] [address] [id number] [place] [address]- 6631 March, [facility] [place] [facility] [address] [id number] [place] [address]- 7417 Feb, [facility] [place] [facility] [address] [id number] [place] [address]- 6254 Feb, [facility] [place] [facility] [address] [id number] [place] [address]- 0529 Dec, [facility] [place] [facility] [address] [id number] [place] [address]- 6212 Dec, [facility] [place] [facility] [address] [id number] [place] [address]- 8270 Nov, [facility] [place] [facility] [address] [id number] [place] [address]- 0240 Nov, [facility] [place] [facility] [address] [id number] [place] [address]- 7273 Sep, [facility] [place] [facility] [address] [id number], [place] [address]- 1757 Sep, [facility] [place] [facility] [address] [id number], [place] [address]- 4279 Sep, [facility] [place] [facility] [address] [id number], [place] [address]- 2553 Sep, [facility] [place] [facility] [address] [id number] [place] [address]- 1515 Sep, [facility] [place] [facility] [address] [id number] [place] [address]- 0507 Sep, [facility] [place] [facility] [address] [id number], [place] [address]- 8913 Sep, [facility] [place] [facility] [address] [id number], [place] [address]- 4981 Aug, [facility] [place] [facility] [address] [id number] [place] [address]- 5408 Aug, [facility] [place] [facility] [address] [id number] [place] [address]- 1661 Aug, [facility] [place] [facility] [address] [id number] [place] [address]- 0059 Aug, [facility] [place] [facility] [address] [id number] [place] [address]- 2177 Aug, [facility] [place] [facility] [address] [id number] [place] [address]- 8371 Aug, [facility] [place] [facility] [address] [id number] [place] [address]- 7465 Jul, [facility] [place] [facility] [address] [id number] [place] [address]- 5556 Jul, [facility] [place] [facility] [address] [id number] [place] [address]- 2171 16 Jul, 2013 [facility] [place] [facility] [address] [id number] [place] [address]- 7887 Jul, [facility] [place] [facility] [address] [id number] [place] [address]- 1905 Jun, [facility] [place] [facility] [address] [id number] [place] [address]- 7756 Jun, [facility] [place] [facility] [address] [id number], [place] [address]- 3629 Jun, [facility] [place] [facility] [address] [id number] [place] [address]- 9434 Jun, [facility] [place] [facility] [address] [id number] [place] [address]- 0460 Jun, [facility] [place] [facility] [address] [id number] [place] [address]- 1366 Jun, [facility] [place] [facility] [address] [id number] [place] [address]- 1242 Jun, [facility] [place] [facility] [address] [id number] [place] [address]- 4000 May, [facility] [place] [facility] [address] [id number] [place] [address]- 8983 May, [facility] [place] [facility] [address] [id number] [place] [address]- 5193 16 May, 2013 [facility] [place] [facility] [address] [id number] [place] [address]- 2375 15 May, 2013 [facility] [place] [facility] [address] [id number] [place] [address]- 7748 May, [facility] [place] [facility] [address] [id number] [place] [address]- 1954 May, [facility] [place] [facility] [address] [id number] [place] [address]- 7780 May, [facility] [place] [facility] [address] [id number] [place] [address]- 9452 Apr, [facility] [place] [facility] [address] [id number] [place] [address]- 7368 Apr, [facility] [place] [facility] [address] [id number] [place] [address]- 8843 Apr, [facility] [place] [facility] [address] [id number] [place] [address]- 3599 Apr, [facility] [place] [facility] [address] [id number] [place] [address]- 7779 Apr, [facility] [place] [facility] [address] [id number] [place] [address]- 3990 Apr, [facility] [place] [facility] [address] [id number] [place] [address] Apr, [facility] [place] [facility] [address] [id number] [place] [address]- 3197 18 Apr, 2013 [facility] [place] [facility] [address] [id number] [place] [address]- 6984 17 Apr, 2013 [facility] [place] [facility] [address] [id number] [place] [address]- 4899 14 Apr, 2013 [facility] [place] [facility] [address] [id number] [place] [address]- 3187 14 Apr, 2013 [facility] [place] [facility] [address] [id number] [place] [address]- 4802 11 Apr, 2013 [facility] [place] [facility] [address] [id number] [place] [address]- 0442 10 Apr, 2013 [facility] [place] [facility] [address] [id number] [place] [address]- 9052 09 Apr, 2013 [facility] [place] [facility] [address] [id number] [place] [address]- 5423 07 Apr, 2013 [facility] [place] [facility] [address] [id number] [place] [address]- 9758 06 Apr, 2013 [facility] [place] [facility] [address] [id number] [place] [address]- 2239 06 Apr, 2013 [facility] [place] [facility] [address] [id number] [place] [address]- 7842 05 Apr, 2013 [facility] [place] [facility] [address] [id number], [place] [address]- 0882 Apr, [facility] [place] [facility] [address] [id number], [place] [address]- 5550 March, [facility] [place] [facility] [address] [id number] [place] [address]- 8160 March, [facility] [place] [facility] [address] [id number] [place] [address]- 7337 March, [facility] [place] [facility] [address] [id number] [place] [address]- 1003 March, [facility] [place] [facility] [address] [id number] [place] [address]- 3453 13 Mar, 2013 [facility] [address] [id number] [place] [address]- 5678 March, [facility] [address] [id number] [place] [address] March, [facility] [address] [id number] [place] [address]- 9448 Feb, [facility] [address] [id number] [place] [address]- 8206 Feb, [facility] [address] [id number] [place] [address]- 9727 27 Jan, 2013 [facility] [address] [id number] [place] [address]- 5674 18 Jan, 2013 [facility] [address] [id number] [place] [address]- 1551 15 Jan, 2013 [facility] [address] [id number] [place] [address]- 0206 14 Jan, 2013 [facility] [address] [id number] [place] [address]- 7753 13 Jan, 2013 [facility] [address] [id number] [place] [address]- 3614 12 Jan, 2013 [facility] [address] [id number] [place] [address]- 8429 11 Jan, 2013 [facility] [place] [facility] [address] [id number] [place] [address]- 0708 09 Jan, 2013 [facility] [place] [facility] [address] [id number] [place] [address]- 7213 08 Jan, 2013 [facility] [place] [facility] [address] [id number] [place] [address]- 6897 07 Jan, 2013 [facility] [address] [id number] [place] [address]- 3554 Jan, [facility] [place] [facility] [address] [id number] [place] [address]- 9563 Nov, [facility] [place] [facility] [address] [id number] [place] [address]- 5436 Oct, [facility] [place] [facility] [address] [id number] [place] [address]- 6778 Oct, [facility] [place] [facility] [address] [id number] [place] [address]- 7031 Oct, [facility] [place] [facility] [address] [id number] [place] [address]- 9273 Oct, [facility] [place] [facility] [address] [id number] [place] [address]- 4208 Sep, [facility] [place] [facility] [address] [id number] [place] [address]- 4822 Sep, [facility] [place] [facility] [address] [id number] [place] [address]- 8294 Sep, [facility] [place] [facility] [address] [id number] [place] [address]- 3378 Sep, [facility] [place] [facility] [address] [id number] [place] [address]- 6062 Sep, [facility] [place] [facility] [address] [id number] [place] [address]- 1762 Sep, [facility] [place] [facility] [address] [id number] [place] [address]- 7704 Sep, [facility] [place] [facility] [address] [id number] [place] [address]- 2413 Sep, [facility] [place] [facility] [address] [id number] [place] [address]- 8525 Sep, [facility] [place] [facility] [address] [id number] [place] [address]- 8856 Sep, [facility] [place] [facility] [address] [id number] [place] [address]- 1703 Sep, [facility] [place] [facility] [address] [id number] [place] [address]- 6559 Aug, [facility] [place] [facility] [address] [id number] [place] [address]- 7116 Aug, [facility] [place] [facility] [address] [id number] [place] [address]- 1636 Aug, [facility] [place] [facility] [address] [id number] [place] [address]- 6081 28 Jul, 2012 [facility] [place] [facility] [address] [id number] [place] [address]- 2040 25 Jul, 2012 [facility] [place] [facility] [address] [id number] [place] [address]- 9777 19 Jul, 2012 [facility] [place] [facility] [address] [id number] [place] [address]- 5134 17 Jul, 2012 [facility] [place] [facility] [address] [id number] [place] [address]- 9392 20 Jun, 2012 [facility] [place] [facility] [address] [id number] [place] [address]- 7199 16 Jun, 2012 [facility] [place] [facility] [address] [id number] [place] [address]- 8781 Jun, [facility] [place] [facility] [address] [id number] [place] [address]- 2476 Jun, [facility] [place] [facility] [address] [id number] [place] [address]- 1361 Jun, [facility] [place] [facility] [address] [id number] [place] [address]- 3387 March, [facility] [place] [facility] [address] [id number] [place] [address]32 Feb, [facility] [place] [facility] [address] [id number] [place] [address]- 3300 Jan, [facility] [place] [facility] [address] [id number] [place] [address]- 1396 27 Jan, 2012 [facility] [place] [facility] [address] [id number] [place] [address]- 8744 22 Jan, 2012 [facility] [place] [facility] [address] [id number] [place] [address]- 7386 14 Jan, 2012 [facility] [place] [facility] [address] [id number] [place] [address]- 6226 14 Jan, 2012 [facility] [place] [facility] [address] [id number] [place] [address]- 8511 14 Jan, 2012 [facility] [place] [facility] [address] [id number] [place] [address]- 8490 28 Dec, 2011 [facility] [place] [facility] [address] [id number] [place] [address]- 3850 27 Dec, 2011 [facility] [place] [facility] [address] [id number] [place] [address]- 4741 23 Dec, 2011 [facility] [place] [facility] [address] [id number] [place] [address]- 1592 21 Dec, 2011 [facility] [place] [facility] [address] [id number] [place] [address]- 8748 20 Dec, 2011 [facility] [place] [facility] [address] [id number] [place] [address]- 7635 19 Dec, 2011 [facility] [place] [facility] [address] [id number] [place] [address]- 0599 17 Dec, 2011 [facility] [place] [facility] [address] [id number] [place] [address]- 7170 16 Dec, 2011 [facility] [place] [facility] [address] [id number] [place] [address]- 0812 31 Nov, 2011 [facility] [place] [facility] [address] [id number] [place] [address]- 5731 13 Oct, 2011 [facility] [place] [facility] [address] [id number], [place] [address]- 6665 Sep, [facility] [address] [facility] [id number], [place] [address]- 3881 Sep, [facility] [address] [id number] [address]60 Sep, [facility] [id number], [place] [address]- 1376 Sep, [facility] [id number] [address] 8129 Sep, [facility] [address] [id number], [place] [address]- 8022 Sep, [facility] [id number], [place] [address]- 5199 Jan, [facility] [address] [id number], [place] [address]- 5049 Apr, IMMUNIZATIONS No Known Immunizations SOCIAL HISTORY Never Assessed REASON FOR VISIT f/u [facility]AN[facility]-MA[facility] PLAN OF CARE Activity Details Follow Up 4 Weeks Reason: f/u VITAL SIGNS Height 66 in 2018-03-21 Weight 133 lbs 2018-03-21 Heart Rate 110 bpm 2018-03-21 Respiratory Rate 20 2018-03-21 BMI 21.46 kg/m2 2018-03-21 Blood pressure systolic 110 mmHg 2018-03-21 Blood pressure diastolic 72 mmHg 2018-03-21 MEDICATIONS Medication Instructions Dosage Frequency Start Date End Date Duration Status Oxycodone-Acetaminophen 10-325 MG Orally every 4 hrs 1 tablet as needed 4h Not-Taking Klonopin 0.5 MG Orally three times a day as needed 1 tablet Aug, 30 days Active Remeron 45 MG Orally Once a day at bedtime 1 tablet March, 30 day(s) Active Abilify 15 mg Orally Once a [...] History Left ovary removed 12/2016 Hospitalization History [facility] Admission x4 2009 most recent admission Hospitalization History [facility]; overdose 2010 Hospitalization History child 11/29/2016
--- OUTSIDE RECORDS SUMMARY | 2018-08-05 20:26 | XMS REPORT ---
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 Name Role Phone LISA FLO Unavailable PROBLEMS Type Condition ICD9-CM Code DNB01-CW Code Onset Dates Condition Status SNOMED Code Problem Generalized anxiety disorder F41.1 Active 33726158 Problem Acute non intractable tension-type headache G44.209 Active 477622284 Problem Acute right-sided low back pain with right-sided sciatica M54.41 Active 976978950 Problem Post traumatic stress disorder F43.10 Active 73506088 Problem Bipolar disorder, current episode mixed, moderate F31.62 Active 917474957 Problem Endometriosis N80.9 Active 303227027 Problem Borderline personality disorder F60.3 Active 40215608 ALLERGIES No Information ENCOUNTERS Encounter Location Date Diagnosis [facility] [id number] [place] [address] 17083- 0639 Jul, [facility] [id number] [place] [address] [id number] Jun, [facility] [id number] [place] [address] 01118- 9564 May, Palpitations R00.2 [facility] [id number] [place] [address] 42527- 7744 May, Palpitations R00.2 [facility] [address] 46114- 9681 May, Palpitations R00.2 and Frequent bowel movements R19.4 [facility] [id number] [place] [address] 76346- 9395 May, Bipolar disorder, current episode mixed, moderate F31.62 ; Post traumatic stress disorder F43.10 and Borderline personality disorder F60.3 [facility] [id number] [id number] 15 Apr, 2018 Dental examination Z01.20 [facility] [address], [place] [address] 15 Apr, 2018 [facility] [id number] [place] [address] 58663- 0884 15 Apr, 2018 Dental examination Z01.20 [facility] [id number] [place] [address] 02250 -6464 15 Apr, 2018 Tooth pain K08.89 [facility] [id number] [place] [address] 04501- 8031 06 Apr, 2018 Bipolar disorder, current episode mixed, moderate F31.62 ; Post traumatic stress disorder F43.10 and Borderline personality disorder F60.3 [facility] [id number] [place] [address] 56096 -6562 18 Mar, 2018 Abdominal pain R10.9 ; UTI symptoms R39.9 and Other microscopic hematuria R31.29 [facility] [address] [place] [address] 86958- 7203 March, [facility] [id number] [place] [address] 32693- 2779 March, Bipolar disorder, current episode mixed, moderate F31.62 ; Post traumatic stress disorder F43.10 and Borderline personality disorder F60.3 [facility] [address] [place] [address] 64369- 2059 30 Feb, 2018 Encounter for immunization Z23 [facility] [id number] [place] [address] 01804- 7496 16 Feb, 2018 Bipolar disorder, current episode mixed, moderate F31.62 ; Post traumatic stress disorder F43.10 and Borderline personality disorder F60.3 [facility] [address] [place] [address] 96645- 2171 Feb, Bipolar disorder, current episode mixed, moderate F31.62 ; Post traumatic stress disorder F43.10 ; Borderline personality disorder F60.3 and Other intermission coordinator (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 Z79.[address] [place] [id number] 98892- 2198 Jan, Encounter for immunization Z23 [facility] [address] 04543- 1149 Jan, [place] [address] 23261- 5032 Jan, Bipolar disorder, current episode mixed, moderate F31.62 [facility] [address] 94344 -8160 Jan, Lumbar back pain M54.5 [place] [address] 18488- 4054 Dec, Low back pain M54.5 [place] [address] 35746- 6866 Dec, Bipolar disorder, current episode mixed, moderate F31.62 [place] [address] 34846- 7701 Dec, Generalized anxiety disorder F41.1 and Bipolar disorder, current episode mixed, moderate F31.62 [facility] [id number] [place] [address] 00291 -3127 Nov, Acute non intractable tension-type headache G44.209 [facility] [id number] [place] [address] 46327- 4923 Nov, Bipolar disorder, current episode mixed, moderate F31.62 ; Post traumatic stress disorder F43.10 and Borderline personality disorder F60.3 [place] [id number] [place] [address] 54804- 0759 Nov, Bipolar disorder, current episode mixed, moderate F31.62 [facility] [address] 57134 -8274 Nov, Abdominal pain R10.9 ; History of PCOS Z87.42 ; History of endometriosis Z87.42 and Pelvic pain R10.2 [place] [id number] [place] [address] 79842- 9327 Nov, [facility] [id number] [place] [address] 65379 -9258 Oct, History of PCOS Z87.42 ; History of endometriosis Z87.42 and Pain R52 [facility] [id number] [place] [address] 15381- 9500 Oct, Bipolar disorder, current episode mixed, moderate F31.62 ; Post traumatic stress disorder F43.10 and Borderline personality disorder F60.3 [place] [id number] [place] [address] 35460- 4031 Oct, Bipolar disorder, current episode mixed, moderate F31.62 [place] [id number] [place] [address] 40206- 4821 Sep, Bipolar disorder, current episode mixed, moderate F31.62 ; Post traumatic stress disorder F43.10 ; Borderline personality disorder F60.3 and Other penitentiary (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 Z79.899 [place] [id number] [place] [address] 76140- 4051 Sep, Bipolar disorder, current episode mixed, moderate F31.62 [facility] [id number] [place] [address] 01646 -0584 Sep, Endometriosis N80.9 and Acute right-sided low back pain with right-sided sciatica M54.41 [place] [id number] [place] [address] 28359- 5215 Aug, [place] [id number] [place] [address] 51602- 8036 Aug, Bipolar disorder, current episode mixed, moderate F31.62 ; Post traumatic stress disorder F43.10 and Borderline personality disorder F60.3 [place] [address], [place] [address]- 3857 11 Aug, 2017 Bipolar disorder, current episode mixed, moderate F31.62 ; Post traumatic stress disorder F43.10 and Borderline personality disorder F60.3 [facility] [address], [place] [address]- 2711 13 Jul, 2017 Bipolar disorder, current episode mixed, moderate F31.62 ; Post traumatic stress disorder F43.10 and Borderline personality disorder F60.3 [facility] [address] [place] [address] 40945 -0447 11 Jul, 2017 Pharyngitis, unspecified etiology J02.9 and Streptococcal pharyngitis J02.0 [facility] [address] [place] [address] 12221- 6007 16 Jun, 2017 Bipolar disorder, current episode mixed, moderate F31.62 ; Post traumatic stress disorder F43.10 and Borderline personality disorder F60.3 [place] [address] [place] [address] 95677- 2097 May, [facility] [id number] [place] [address] 86123- 9195 May, [facility] [id number] [place] [address] 55575- 0133 May, Bipolar disorder, current episode mixed, moderate F31.62 and Generalized anxiety disorder F41.1 [facility] [id number] [place] [address] 74827- 5470 March, Bipolar disorder, current episode mixed, moderate F31.62 and Generalized anxiety disorder F41.1 [place] [id number] [place] [address] 94607- 7424 March, Pelvic pain R10.2 [facility] [address] [place] [address] 89611- 2838 March, [facility] [id number] [place] [address] 32172- 5395 Feb, Bipolar disorder, current episode mixed, moderate F31.62 and Generalized anxiety disorder F41.1 [facility] [id number] [place] [address] 5871 Jan, [facility] [id number] [place] [address]- 1719 Jan, Bipolar disorder, current episode mixed, moderate F31.62 [facility] [address]87620- 7395 Jan, Bipolar disorder, current episode mixed, moderate F31.62 [facility] [id number] [place] [address] 62293- 2179 Jan, Bilateral low back pain without sciatica M54.5 [facility] [id number] [place] [address] [id number] Jan, Dental caries K02.9 and Dental examination Z01.20 [facility] [address] [id number] Jan, Encounter for dental examination and cleaning without abnormal findings Z01.20 [facility] [id number] [place] [address] 33153- 9402 Jan, Bipolar disorder, current episode mixed, moderate F31.62 and Generalized anxiety disorder F41.1 [facility] [id number] [place] [address] 43550- 6353 Dec, [facility] [id number] [place] Dec, Bipolar disorder, current episode mixed, moderate F31.62 and Generalized anxiety disorder F41.1 [facility] [id number] [place] 1039 Dec, Other fatigue R53.83 and Orthostatic hypotension I95.1 [facility] [id number] [place] [address] [id number] Nov, Dental examination Z01.20 [facility] [address] [place] [address] 25353 -7467 02 Nov, 2016 Bronchitis J40 [facility] [id number] [place] [address] 01146- 9290 14 Oct, 2016 Generalized anxiety disorder F41.1 [facility] [id number] [place] [address] 24120- 9241 14 Sep, 2016 Bipolar disorder, current episode mixed, moderate F31.62 and Generalized anxiety disorder F41.1 [facility] [id number] [place] [address] 44594- 4218 02 Sep, 2016 Bipolar disorder, current episode mixed, moderate F31.62 and Generalized anxiety disorder F41.1 [facility] [id number] [place] [address] 56288 -4866 08 Jul, 2016 Upper respiratory tract infection, unspecified type J06.9 [place] [id number] [place] [address] 66925- 8850 Jun, Bipolar disorder, current episode mixed, moderate F31.62 and Generalized anxiety disorder F41.1 [place] [id number] [place] [address] 08827- 1624 Apr, [place] [id number] [place] [address] 38868- 6702 Apr, Encounter for test, result positive Z32.01 [place] [id number] [place] [address] 17752- 1984 March, [place] [id number] [place] [address] 88578- 5265 March, Bipolar disorder, current episode mixed, moderate F31.62 and Generalized anxiety disorder F41.1 [place] [id number] [place] [address] 60760- 6538 March, Bipolar disorder, current episode mixed, moderate F31.62 and Generalized anxiety disorder F41.1 [place] [id number] [place] [address] 61782- 9534 March, [facility] [address], [place] [address]- 4157 March, [facility] [id number] [place] [address] 74265- 7672 Feb, [facility] [address] [place] [address] 88824- 3070 Feb, [facility] [id number] [place] [address] 86174- 8144 Feb, Bipolar disorder, current episode mixed, moderate F31.62 and Generalized anxiety disorder F41.1 [facility] [id number] [place] [address] 00553- 2838 Jan, Abdominal pain R10.9 [facility] [address] [place] [address] 32297- 8875 Jan, [facility] [id number] [place] [address] 52733- 2703 Dec, Dental examination Z01.20 [facility] [id number] [place] [address] 56726- 3472 Dec, Dental examination Z01.20 and Dental caries K02.9 [facility] [address] [place] [address] 96716- 5159 Dec, Bipolar disorder, current episode mixed, moderate F31.62 and Generalized anxiety disorder F41.1 [facility] [address] [place] [address] 57706- 4323 Dec, [facility] [id number] [place] [address] 93298- 6628 Nov, Bipolar disorder, current episode mixed, moderate F31.62 ; Generalized anxiety disorder F41.1 and Seizure-like activity R56.9 [facility] [address], [place] [address]- 2101 Oct, [facility] [id number] [place] [address] 12596- 8754 22 Oct, 2015 Bipolar disorder, current episode mixed, moderate F31.62 [place] [address] 71823- 9401 14 Oct, 2015 Well woman exam Z01.419 [...] Tobacco use Z72.0 and Hot flashes N95.1 [place] [address] 83929- 2754 09 Oct, 2015 Seizure-like activity R56.9 and Irregular periods N92.6 [place] [address] 17885- 2027 07 Oct, 2015 Bipolar disorder, current episode mixed, moderate F31.62 ; Generalized anxiety disorder F41.1 and Underweight R63.6 [place] [address] 02925- 6233 Oct, [place] [address] 88686- 7296 Oct, Generalized anxiety disorder F41.1 and Unspecified mood [ affective] disorder F39 [facility] [address] 10748 -4024 Oct, Back pain M54.9 and Anxiety F41.9 [place] [address] 51739- 6297 Oct, [facility] [address] 25407 -9006 Sep, Arm pain, left M79.602 [facility] [id number] [place] [address] 62630- 7873 Sep, [facility] [id number] [place] [address] [id number] Sep, Dental examination Z01.20 and Dental caries K02.9 [facility] [id number] [place] [address] 34434- 2251 Sep, Generalized anxiety disorder F41.1 and Unspecified episodic mood disorder F39 [facility] [id number] [place] [address] 91186- 6443 Sep, Bilateral low back pain without sciatica M54.5 and Seizure- like activity R56.9 [facility] [id number] [place] [address] 23082- 6024 Aug, [facility] [id number] [place] [address] 47048- 2286 Aug, [facility] [id number] [place] [address] 48093- 5589 Aug, [facility] [id number] [place] [address] 96587- 3754 Aug, Visual changes H53.9 and Bilateral low back pain without sciatica M54.5 [facility] [id number] [place] [address] 69572- 1362 Jul, [facility] [address] 79441- 7898 Jun, Bipolar I disorder, most recent episode (or current) mixed, moderate 296.62 ; Generalized anxiety disorder 300.02 and High risk medication use V58.69 [facility] [id number] [place] [address] 40116- 6631 Jun, [facility] [id number] [place] [address] 87234- 8815 May, [facility] [address] 63484- 1307 May, Bipolar I disorder, most recent episode (or current) mixed, moderate 296.62 and Generalized anxiety disorder 300.02 [facility] [address] [id number] May, Dental examination V72.2 [facility] [address], [place] [address]- 5901 March, Bipolar I disorder, most recent episode (or current) mixed, moderate 296.62 and Generalized anxiety disorder 300.02 [facility] [address]- 3723 March, [facility] [id number] [place] [address] 73334- 1253 March, [facility] [id number] [place] [address] 197928- 0685 March, Underweight 783.22 ; Hand pain, right 729.5 and Reflux gastritis 535.40 [facility] [address], [place] [address]- 2661 Feb, [facility] [id number] [place] [address] 40178- 4620 Feb, [facility] [address], [place] [address]- 5241 18 Jan, 2015 [facility] [address], [place] [address]- 8159 18 Jan, 2015 [facility] [address], [place] [address]- 9980 16 Jan, 2015 [facility] [id number] [address]- 7805 16 Jan, 2015 [facility] [address], [place] [address]- 5487 13 Jan, 2015 [facility] [address], [place] [address]- 8226 Jan, [facility] [place] [facility] [address] [id number] [place] [address]- 4200 05 Jan, 2015 [facility] [place] [facility] [address] [id number] [place] [address]- 0879 05 Jan, 2014 [facility] [place] [facility] [address] [id number] [place] [address]- 7054 04 Jan, 2015 [facility] [place] [facility] [address] [id number] [place] [address]- 6702 04 Jan, 2014 [facility] [place] [facility] [address] [id number] [place] [address]- 3022 Jan, [facility] [place] [facility] [address] [id number] [place] [address]- 0248 Jan, [facility] [place] [facility] [address] [facility] [id number] [place] [address]- 6460 20 Dec, 2014 [facility] [place] [facility] [address] [facility] [id number] [place] [address]- 0083 20 Dec, 2014 [facility] [place] [facility] [address] [id number] [place] [address]- 9348 19 Dec, 2014 [facility] [place] [facility] [address] [facility] [id number] [place] [address]- 5879 19 Dec, 2014 [facility] [place] [facility] [address] [facility] [id number] [place] [address]- 2311 18 Dec, 2014 [facility] [place] [facility] [address] [id number] [address]- 5355 17 Dec, 2014 [facility] [place] [facility] [address] [id number] [place] [address]- 7693 17 Dec, 2014 [facility] [place] [facility] [address] [facility] [id number] [place] [address]- 1200 16 Dec, 2014 [facility] [place] [facility] [address] [facility] [id number] [place] [address]- 9903 16 Dec, 2014 [facility] [place] [facility] [address] [id number] [place] [address]- 9571 Dec, 2014 [facility] [place] [facility] [address] [id number] [place] [address]- 9629 Dec, 2014 [facility] [place] [facility] [address] [id number] [place] [address]- 1109 Dec, 2014 [facility] [place] [facility] [address] [id number] [place] [address]- 3767 Dec, 2014 [facility] [place] [facility] [address] [id number] [place] [address]- 0717 Dec, 2014 [facility] [place] [facility] [address] [id number] [place] [address]- 6080 Dec, 2014 [facility] [place] [facility] [address] [facility] [id number] [place] [address]- 0004 Dec, 2014 [facility] [place] [facility] [address] [facility] [id number] [place] [address]- 9371 Dec, 2014 [facility] [place] [facility] [address] [facility] [id number] [place] [address]- 4396 Dec, 2014 [facility] [place] [facility] [address] [facility] [id number] [place] [address]- 7726 Dec, [facility] [place] [facility] [address] [facility] [id number], [place] [address]- 0594 Nov, [facility] [place] [facility] [address] [facility] [id number], [place] [address]- 9601 Nov, [facility] [place] [facility] [address] [id number], [place] [address]- 1226 Nov, [facility] [place] [facility] [address] [facility] [id number], [place] [address]- 0609 Nov, [facility] [place] [facility] [address] [facility] [id number], [place] [address]- 3077 Nov, [facility] [place] [facility] [address] [facility] [id number], [place] [address]- 8343 Nov, [facility] [place] [facility] [address] [id number] [place] [id number] Nov, [facility] [place] [facility] [address] [id number] [place] [address] Nov, [facility] [place] [facility] [address] [id number] [place] [address] Nov, [facility] [place] [facility] [address] [id number] [id number] Nov, [facility] [place] [facility] [address] [id number] [place] [address] Nov, [facility] [place] [facility] [address] [id number] [place] [address] Nov, [facility] [place] [facility] [address] [id number] [place] [address] Oct, [facility] [place] [facility] [address] [id number] [place] [address] Oct, [facility] [place] [facility] [address] [id number] [place] Oct, [facility] [place] [facility] [address] [id number] [place] [address] Oct, [facility] [place] [facility] [address] [id number] [place] [address] Oct, [facility] [place] [facility] [address] [id number] [place] [address] Oct, [facility] [place] [facility] [address] [id number] [place] [address] Oct, [facility] [place] [facility] [address] [id number] [place] [address] Oct, [facility] [place] [facility] [address] [id number] [place] [address] 17 Oct, 2014 [facility] [place] [facility] [address] [id number] [place] [address] Oct, [facility] [place] [facility] [address] [id number] [place] [address] Oct, [facility] [place] [facility] [address] [id number] [place] [address] Oct, [facility] [place] [facility] [address] [id number] [place] [address] Sep, [facility] [place] [facility] [address] [id number] [place] [address] Sep, [facility] [place] [facility] [address] [id number] [place] [address] Sep, [facility] [place] [facility] [address] [id number] [place] [address] Sep, [facility] [place] [facility] [address] [id number] [place] [address] Sep, [facility] [place] [facility] [address] [id number] [place] [address]- 6376 Sep, [facility] [place] [facility] [address] [id number] [place] [address] Sep, [facility] [place] [facility] [address] [facility] [id number] [place] [address] 74[address] Sep, [facility] [place] [facility] [address] [id number] [place] [address] 5[address] Aug, [facility] [place] [facility] [address] [id number] [place] [address] 2071 Aug, [facility] [place] [facility] [address] [id number] [place] [address]- 7666 Aug, [facility] [place] [facility] [address] [id number] [place] [address] 2048 Aug, [facility] [place] [facility] [address] [id number] [place] [address]- 5775 Aug, [facility] [place] [facility] [address] [id number] [place] [address]- 7379 Aug, [facility] [place] [facility] [address] [id number] [place] [address]- 1696 Aug, [facility] [place] [facility] [address] [id number] [place] [address] 8019 Aug, [facility] [place] [facility] [address] [id number] [place] [address]- 7597 Aug, [facility] [place] [facility] [address] [id number] [place] [address]- 8789 Aug, [facility] [place] [facility] [address] [id number] [place] [address]- 5796 Aug, [facility] [place] [facility] [address] [id number] [place] [address]- 7672 Aug, [facility] [place] [facility] [address] [id number] [place] [address]- 1048 Aug, [facility] [place] [facility] [address] [id number] [place] [address]- 6217 Jul, [facility] [place] [facility] [address] [id number] [place] [address]- 3534 Jul, [facility] [place] [facility] [address] [id number] [place] [address]- 7516 Jul, [facility] [place] [facility] [address] [id number], [place] [address] Jul, [facility] [place] [facility] [address] [id number] [place] [address]- 3455 Jun, [facility] [place] [facility] [address] [id number] [place] [address]- 8365 Jun, [facility] [place] [facility] [address] [id number], [place] [address]4 Jun, [facility] [place] [facility] [address] [id number], [place] [address] Jun, [facility] [place] [facility] [address] [id number] [place] [address]- 5509 Jun, [facility] [place] [facility] [address] [id number] [place] [address]- 7720 Jun, [facility] [place] [facility] [address] [id number] [place] [address]- 5704 May, [facility] [place] [facility] [address] [id number] [place] [address]- 7006 May, [facility] [place] [facility] [address] [id number] [place] [address]- 9270 May, [facility] [place] [facility] [address] [id number] [place] [address]- 3758 May, [facility] [place] [facility] [address] [id number] [place] [address]- 7655 Apr, [facility] [place] [facility] [address] [id number] [place] [address]- 0600 Apr, [facility] [place] [facility] [address] [id number] [place] [address]- 6014 March, [facility] [place] [facility] [address] [id number] [place] [address]- 2006 March, [facility] [place] [facility] [address] [id number] [place] [address]- 6192 March, [facility] [place] [facility] [address] [id number] [place] [address]- 5411 March, [facility] [place] [facility] [address] [id number] [place] [address]- 5708 March, [facility] [place] [facility] [address] [id number] [place] [address]- 5178 March, [facility] [place] [facility] [address] [id number] [place] [address]- 9731 Feb, [facility] [place] [facility] [address] [id number] [place] [address]- 9985 Feb, [facility] [place] [facility] [address] [id number] [place] [address]- 0580 Dec, [facility] [place] [facility] [address] [id number] [place] [address]- 0352 Dec, [facility] [place] [facility] [address] [id number] [place] [address]- 1433 Nov, [facility] [place] [facility] [address] [id number] [place] [address]- 4454 Nov, [facility] [place] [facility] [address] [id number] [place] [address]- 0224 Sep, [facility] [place] [facility] [address] [id number] [place] [address]- 8317 Sep, [facility] [place] [facility] [address] [id number] [place] [address]- 0567 Sep, [facility] [place] [facility] [address] [id number] [place] [address]- 7859 Sep, [facility] [place] [facility] [address] [id number] [place] [address]- 4705 Sep, [facility] [place] [facility] [address] [id number] [place] [address]- 7180 Sep, [facility] [place] [facility] [address] [id number] [place] [address]- 9770 Sep, [facility] [place] [facility] [address] [id number] [place] [address]- 8530 Aug, [facility] [place] [facility] [address] [id number] [place] [address]- 8801 Aug, [facility] [place] [facility] [address] [id number] [place] [address]- 1523 Aug, [facility] [place] [facility] [address] [id number] [place] [address]- 7162 Aug, [facility] [place] [facility] [address] [id number] [place] [address]- 7658 Aug, [facility] [place] [facility] [address] [id number] [place] [address]- 0976 Aug, [facility] [place] [facility] [address] [id number] [place] [address]- 8227 Jul, [facility] [place] [facility] [address] [id number] [place] [address]- 9836 Jul, [facility] [place] [facility] [address] [id number] [place] [address]- 2290 16 Jul, 2013 [facility] [place] [facility] [address] [id number] [place] [address]- 0495 Jul, [facility] [place] [facility] [address] [id number] [place] [address]- 5711 Jun, [facility] [place] [facility] [address] [id number], [place] [address]- 4261 Jun, [facility] [place] [facility] [address] [id number] [place] [address]- 1139 Jun, [facility] [place] [facility] [address] [id number] [place] [address]- 9958 Jun, [facility] [place] [facility] [address] [id number], [place] [address]- 9090 Jun, [facility] [place] [facility] [address] [id number], [place] [address]- 7532 Jun, [facility] [place] [facility] [address] [id number] [place] [address]- 5191 Jun, [facility] [place] [facility] [address] [id number], [place] [address]- 4783 May, [facility] [place] [facility] [address] [id number] [place] [address]- 8865 May, [facility] [place] [facility] [address] [id number] [place] [address]- 2864 16 May, 2013 [facility] [place] [facility] [address] [id number] [place] [address]- 8879 15 May, 2013 [facility] [place] [facility] [address] [id number] [place] [address]- 3600 13 May, 2013 [facility] [place] [facility] [address] [id number] [place] [address]- 0819 05 May, 2013 [facility] [place] [facility] [address] [id number] [place] [address]- 2548 03 May, 2013 [facility] [place] [facility] [address] [id number] [place] [address]- 8477 28 Apr, 2013 [facility] [place] [facility] [address] [id number] [place] [address]- 7814 27 Apr, 2013 [facility] [place] [facility] [address] [id number] [place] [address]- 9032 27 Apr, 2013 [facility] [place] [facility] [address] [id number] [place] [address]- 7543 26 Apr, 2013 [facility] [place] [facility] [address] [id number] [place] [address]- 9690 20 Apr, 2013 [facility] [place] [facility] [address] [id number] [place] [address]- 1638 18 Apr, 2013 [facility] [place] [facility] [address] [id number] [place] [address]- 5916 18 Apr, 2013 [facility] [place] [facility] [address] [id number] [place] [address]- 3421 18 Apr, 2013 [facility] [place] [facility] [address] [id number] [place] [address]- 8570 17 Apr, 2013 [facility] [place] [facility] [address] [id number] [place] [address]- 6024 14 Apr, 2013 [facility] [place] [facility] [address] [id number] [place] [address]- 0776 14 Apr, 2013 [facility] [place] [facility] [address] [id number] [place] [address]- 7237 11 Apr, 2013 [facility] [address] [id number] [place] [address]- 1253 Apr, [facility] [address] [id number] [place] [address]- 5242 09 Apr, 2013 [facility] [address] [id number] [place] [address]- 3463 Apr, [facility] [address] [id number] [place] [address]- 8949 Apr, [facility] [address] [id number] [place] [address]- 2731 Apr, [facility] [address] [id number] [place] [address]- 3558 Apr, [facility] [address] [id number] [place] [address]- 4775 Apr, [facility] [address] [id number] [place] [address]- 6209 March, [facility] [address] [id number] [place] [address]- 6891 March, [facility] [address] [id number] [place] [address]- 2367 March, [facility] [address] [id number] [place] [address]- 8561 March, [facility] [address] [id number] [place] [address]- 1654 March, [facility] [place] [facility] [address] [id number] [place] [address]- 0450 March, [facility] [address] [id number] [place] [address]- 4790 March, [facility] [address] [id number] [place] [address]- 0017 12 Feb, 2013 [facility] [address] [id number] [place] [address]- 5235 03 Feb, 2013 [facility] [address] [id number] [place] [address]- 4129 27 Jan, 2013 [facility] [address] [id number] [place] [address]- 1776 18 Jan, 2013 [facility] [place] [facility] [address] [id number] [place] [address]- 6696 15 Jan, 2013 [facility] [address] [id number] [place] [address]- 6172 14 Jan, 2013 [facility] [place] [facility] [address] [id number] [place] [address]- 5335 13 Jan, 2013 [facility] [address] [id number] [place] [address]- 4203 12 Jan, 2013 [facility] [place] [facility] [address] [id number] [place] [address]- 8778 11 Jan, 2013 [facility] [address] [id number] [place] [address]- 0154 09 Jan, 2013 [facility] [place] [facility] [address] [id number] [place] [address]- 7873 08 Jan, 2013 [facility] [address] [id number] [place] [address]- 9338 07 Jan, 2013 [facility] [place] [facility] [address] [id number] [place] [address]- 0572 06 Jan, 2013 [facility] [place] [facility] [address] [id number] [place] [address]- 3462 17 Nov, 2012 [facility] [place] [facility] [address] [id number] [place] [address]- 0268 Oct, [facility] [place] [facility] [address] [id number] [place] [address]- 6351 Oct, [facility] [place] [facility] [address] [id number] [place] [address]- 6772 Oct, [facility] [place] [facility] [address] [id number] [place] [address]- 1148 Oct, [facility] [place] [facility] [address] [id number] [place] [address]- 0555 Sep, [facility] [place] [facility] [address] [id number] [place] [address]- 1392 Sep, [facility] [place] [facility] [address] [id number] [place] [address]- 0465 Sep, [facility] [place] [facility] [address] [id number] [place] [address]- 5859 Sep, [facility] [place] [facility] [address] [id number] [place] [address]- 0801 Sep, [facility] [place] [facility] [address] [id number] [place] [address]- 3536 Sep, [facility] [place] [facility] [address] [id number] [place] [address]- 5791 Sep, [facility] [place] [facility] [address] [id number] [place] [address]- 7350 Sep, [facility] [place] [facility] [address] [id number] [place] [address]- 6263 Sep, [facility] [place] [facility] [address] [id number] [place] [address]- 4670 Sep, [facility] [place] [facility] [address] [id number] [place] [address]- 7123 Sep, [facility] [place] [facility] [address] [id number] [place] [address]- 3466 Aug, [facility] [place] [facility] [address] [id number] [place] [address]- 0179 Aug, [facility] [place] [facility] [address] [id number] [place] [address]- 5720 Aug, [facility] [place] [facility] [address] [id number] [place] [address]- 0227 28 Jul, 2012 [facility] [place] [facility] [address] [id number] [place] [address]- 5266 25 Jul, 2012 [facility] [place] [facility] [address] [id number] [place] [address]- 5067 19 Jul, 2012 [facility] [place] [facility] [address] [id number] [place] [address]- 1002 17 Jul, 2012 [facility] [place] [facility] [address] [id number] [place] [address]- 0607 20 Jun, 2012 [facility] [place] [facility] [address] [id number] [place] [address]- 5562 16 Jun, 2012 [facility] [place] [facility] [address] [id number] [place] [address]- 4900 15 Jun, 2012 [facility] [place] [facility] [address] [id number] [place] [address]- 8773 15 Jun, 2012 [facility] [place] [facility] [address] [id number] [place] [address]- 5934 13 Jun, 2012 [facility] [place] [facility] [address] [id number] [place] [address]- 6134 March, [facility] [place] [facility] [address] [id number] [place] [address]- 3871 04 Feb, 2012 [facility] [place] [facility] [address] [id number] [place] [address]- 0949 28 Jan, 2012 [facility] [place] [facility] [address] [id number] [place] [address]- 0591 27 Jan, 2012 [facility] [place] [facility] [address] [id number] [place] [address]- 4654 22 Jan, 2012 [facility] [place] [facility] [address] [id number] [place] [address]- 7281 14 Jan, 2012 [facility] [place] [facility] [address] [id number] [place] [address]- 0050 14 Jan, 2012 [facility] [place] [facility] [address] [id number] [place] [address]- 5456 14 Jan, 2012 [facility] [place] [facility] [address] [id number] [place] [address]- 1816 28 Dec, 2011 [facility] [place] [facility] [address] [id number] [place] [address]- 1936 27 Dec, 2011 [facility] [place] [facility] [address] [id number] [place] [address]- 1182 23 Dec, 2011 [facility] [place] [facility] [address] [id number] [place] [address]- 6596 21 Dec, 2011 [facility] [place] [facility] [address] [id number] [place] [address]- 9446 20 Dec, 2011 [facility] [place] [facility] [address] [id number] [place] [address]- 1748 19 Dec, 2011 [facility] [place] [facility] [address] [id number] [place] [address]- 2115 17 Dec, 2011 [facility] [place] [facility] [address] [id number] [place] [address]- 9656 16 Dec, 2011 [facility] [place] [facility] [address] [facility] [id number] [place] [address]- 3428 31 Nov, 2011 [facility] [place] [facility] [address] [id number] [place] [address]- 5482 13 Oct, 2011 [facility] [place] [facility] [address] [id number] [place] [address] 2549 18 Sep, 2011 [facility] [place] [facility] [address] [id number] [place] [address]- 0318 18 Sep, 2011 [facility] [place] [facility] [address] [id number] [place] [address]- 8986 17 Sep, 2011 [facility] [place] [facility] [address] [id number] [place] [address]31 Sep, [facility] [address] [facility] [id number], [place] [address]- 2546 Sep, [facility] [address] [facility] [id number], [place] [address]- 2546 Sep, [facility] [address] [facility] [id number], [place] [address]- 2546 Jan, [facility] [address] [facility] [id number], [place] [address]- 2546 Apr, IMMUNIZATIONS Vaccine Route Administration Date Status HEP B (ADULT) IM Intramuscular March 12, 2018 Administered HEP A (ADULT) IM Intramuscular March 12, 2018 Administered SOCIAL HISTORY Never Assessed REASON FOR VISIT Immunization(s) Hep B/ Hep A -- josh lozano PLAN OF CARE Activity Details Follow Up 2 Months Reason:hep B two months VITAL SIGNS MEDICATIONS Unknown Medications RESULTS No Results PROCEDURES Procedure Date Ordered Result Body Site HEP B (ADULT) March 12, 2018 HEP A (ADULT) March 12, 2018 IMMUNIZATION ADMIN, EACH ADD (please include units) March 12, 2018 SINGLE IMMUNIZATION ADMIN March 12, 2018 INSTRUCTIONS MEDICATIONS ADMINISTERED No Known Medications MEDICAL (GENERAL) HISTORY Type Description Date Medical History bipolar disorder Medical History PTSD Medical History endometriosis Medical History PCOS (Polycystic Ovary Syndrome) Medical History Seizures Medical History Endometriosis Medical History History of Self Harm Surgical History laparoscopy for endometriosis 2008 Surgical History tonsillectomy Surgical History partial hysterectomy 12/2016 Surgical History Left ovary removed 12/2016 Hospitalization History [facility] x4 2009 most recent admission Hospitalization History [facility] overdose 2010 Hospitalization History child 11/29/2016
--- OUTSIDE RECORDS SUMMARY | 2018-08-05 20:27 | XMS REPORT ---
Author Author TOMASZ MARGARITA [facility] Address [address] [place] [address] Care Team Providers Care Retreader Name Role Phone TOMASZ, MARGARITA Unavailable PROBLEMS Type Condition ICD9-CM Code URS88-OF Code Onset Dates Condition Status SNOMED Code Problem Generalized anxiety disorder F41.1 Active 35319057 Problem Acute non intractable tension-type headache G44.209 Active 914775330 Problem Acute right-sided low back pain with right-sided sciatica M54.41 Active 152373654 Problem Post traumatic stress disorder F43.10 Active 34037299 Problem Bipolar disorder, current episode mixed, moderate F31.62 Active 416779388 Problem Endometriosis N80.9 Active 174605867 Problem Borderline personality disorder F60.3 Active 56514182 ALLERGIES Substance Reaction Event Type Date Status Thioridazine HCl tachycardia Drug Allergy Feb, Active Pristiq Unknown Drug Allergy Feb, Active Penicillin V Potassium rash Drug Allergy Feb, Active Diclofenac Sodium nausea Drug Allergy Feb, Active Depakote fatigue Drug Allergy Feb, Active ENCOUNTERS Encounter Location Date Diagnosis [facility] [address] [address] Jul, [facility] [id number] [place] [address] [id number] Jun, [facility] [id number] [place] [address] 11693- 9518 May, Palpitations R00.2 [facility] [id number] [place] [address] 46264- 6270 May, Palpitations R00.2 [facility] [address], [place] [address] 6[address] May, Palpitations R00.2 and Frequent bowel movements R19.4 [facility] [id number] [place] [address] 81223- 0454 05 May, 2018 Bipolar disorder, current episode mixed, moderate F31.62 ; Post traumatic stress disorder F43.10 and Borderline personality disorder F60.3 [facility] [id number] [id number] 15 Apr, 2018 Dental examination Z01.20 [facility] [id number] [place] [address] 02132 -8825 15 Apr, 2018 [facility] [id number] [place] [address] 23849- 3032 15 Apr, 2018 Dental examination Z01.20 [facility] [id number] [place] [address] 52717 -1359 15 Apr, 2018 Tooth pain K08.89 [facility] [address] 37333- 7327 06 Apr, 2018 Bipolar disorder, current episode mixed, moderate F31.62 ; Post traumatic stress disorder F43.10 and Borderline personality disorder F60.3 [facility] [id number] [place] [address] 17448 -2656 March, Abdominal pain R10.9 ; UTI symptoms R39.9 and Other microscopic hematuria R31.29 [facility] [id number] [place] [address] 78300- 3035 March, [facility] [id number] [place] [address] 40351- 0100 March, Bipolar disorder, current episode mixed, moderate F31.62 ; Post traumatic stress disorder F43.10 and Borderline personality disorder F60.3 [facility] [id number] [place] [address] 27160- 6354 Feb, Encounter for immunization Z23 [facility] [id number] [place] [address] 82504- 4719 Feb, Bipolar disorder, current episode mixed, moderate F31.62 ; Post traumatic stress disorder F43.10 and Borderline personality disorder F60.3 [facility] [id number] [place] [address] 53469- 129 Feb, Bipolar disorder, current episode mixed, moderate F31.62 ; Post traumatic stress disorder F43.10 ; Borderline personality disorder F60.3 and 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 [facility] [id number] 851 Jan, Encounter for immunization Z23 [facility] [address] 781555- 2226 Jan, [facility] [address] 740064- 7076 Jan, Bipolar disorder, current episode mixed, moderate F31.62 [facility] [address] 78515 -0647 Jan, Lumbar back pain M54.5 [facility] [address] 61464- 2835 Dec, Low back pain M54.5 [facility] [address] 99573- 0559 Dec, Bipolar disorder, current episode mixed, moderate F31.62 [facility] [id number] [place] [address] 34754- 2511 Dec, Generalized anxiety disorder F41.1 and Bipolar disorder, current episode mixed, moderate F31.62 [facility] [id number] [place] [address] 41230 -1268 Nov, Acute non intractable tension-type headache G44.209 [facility] [id number] [place] [address] [address] Nov, Bipolar disorder, current episode mixed, moderate F31.62 ; Post traumatic stress disorder F43.10 and Borderline personality disorder F60.3 [facility] [address] [place] [address]- 7463 Nov, Bipolar disorder, current episode mixed, moderate F31.62 [facility] [id number] [place] [address] 38371 -3771 Nov, Abdominal pain R10.9 ; History of PCOS Z87.42 ; History of endometriosis Z87.42 and Pelvic pain R10.2 [facility] [address] 46325- 7019 Nov, [facility] [address] 36657 -1591 Oct, History of PCOS Z87.42 ; History of endometriosis Z87.42 and Pain R52 [facility] [id number] [place] [address] 44357- 6508 Oct, Bipolar disorder, current episode mixed, moderate F31.62 ; Post traumatic stress disorder F43.10 and Borderline personality disorder F60.3 [facility] [id number] [place] [address] 50292- 7993 Oct, Bipolar disorder, current episode mixed, moderate F31.62 [facility] [id number] [place] [address] 18760- 9552 Sep, Bipolar disorder, current episode mixed, moderate F31.62 ; Post traumatic stress disorder F43.10 ; Borderline personality disorder F60.3 and Other nursing home (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 Z79.899 [place] [id number] [place] [address] 90558- 9320 Sep, Bipolar disorder, current episode mixed, moderate F31.62 [facility] [id number] [place] [address] 31933 -4762 Sep, Endometriosis N80.9 and Acute right-sided low back pain with right-sided sciatica M54.41 [facility] [id number] [place] [address] 46523- 5898 Aug, [facility] [id number] [place] [address] 75790- 2309 27 Aug, 2017 Bipolar disorder, current episode mixed, moderate F31.62 ; Post traumatic stress disorder F43.10 and Borderline personality disorder F60.3 [facility] [id number] [place] [address] 46806- 2046 11 Aug, 2017 Bipolar disorder, current episode mixed, moderate F31.62 ; Post traumatic stress disorder F43.10 and Borderline personality disorder F60.3 [facility] [id number] [place] [address] 25487- 8001 13 Jul, 2017 Bipolar disorder, current episode mixed, moderate F31.62 ; Post traumatic stress disorder F43.10 and Borderline personality disorder F60.3 [facility] [id number] [place] [address] 98313 -1642 11 Jul, 2017 Pharyngitis, unspecified etiology J02.9 and Streptococcal pharyngitis J02.0 [facility] [id number] [place] [address] 36173- 7599 16 Jun, 2017 Bipolar disorder, current episode mixed, moderate F31.62 ; Post traumatic stress disorder F43.10 and Borderline personality disorder F60.3 [facility] [id number] [place] [address] 53504- 4539 May, [facility] [id number] [place] [address] 06187- 7154 May, [facility] [id number] [place] [address] 19245- 0376 May, Bipolar disorder, current episode mixed, moderate F31.62 and Generalized anxiety disorder F41.1 [facility] [address] 67475- 7616 March, Bipolar disorder, current episode mixed, moderate F31.62 and Generalized anxiety disorder F41.1 [facility] [id number] [place] [address] 45238- 6107 04 Mar, 2017 Pelvic pain R10.2 [facility] [address] [place] [address] 36381- 5849 March, [facility] [id number] [place] [address] 9780 Feb, Bipolar disorder, current episode mixed, moderate F31.62 and Generalized anxiety disorder F41.1 [facility] [id number] [place] [address] 60552- 1890 Jan, [facility] [id number] [place] 0803 Jan, Bipolar disorder, current episode mixed, moderate F31.62 [facility] [id number] [place] [address] 0610 Jan, Bipolar disorder, current episode mixed, moderate F31.62 [facility] [id number] [place] [address] 22218- 7513 Jan, Bilateral low back pain without sciatica M54.5 [facility] [id number] [place] [address] [id number] Jan, Dental caries K02.9 and Dental examination Z01.20 [facility] [id number] [place] [address] [id number] Jan, Encounter for dental examination and cleaning without abnormal findings Z01.20 [facility] [id number] [place] [address] 98156- 0253 Jan, Bipolar disorder, current episode mixed, moderate F31.62 and Generalized anxiety disorder F41.1 [facility] [id number] [place] [address] 31789- 9244 Dec, [facility] [id number] [place] [address] 8546 Dec, Bipolar disorder, current episode mixed, moderate F31.62 and Generalized anxiety disorder F41.1 [facility] [id number] [place] [address] 16632- 5887 Dec, Other fatigue R53.83 and Orthostatic hypotension I95.1 [facility] [address] [id number] Nov, Dental examination Z01.20 [facility] [address] [place] [address] 03246 -7979 Nov, Bronchitis J40 [facility] [id number] [place] [address] 07893- 3029 Oct, Generalized anxiety disorder F41.1 [facility] [id number] [place] [address] 37798- 1298 Sep, Bipolar disorder, current episode mixed, moderate F31.62 and Generalized anxiety disorder F41.1 [facility] [id number] [place] [address] 06345- 6623 Sep, Bipolar disorder, current episode mixed, moderate F31.62 and Generalized anxiety disorder F41.1 [facility] [address] [place] [address] 77439 -0855 08 Jul, 2016 Upper respiratory tract infection, unspecified type J06.9 [facility] [id number] [place] [address] 86752- 0801 Jun, Bipolar disorder, current episode mixed, moderate F31.62 and Generalized anxiety disorder F41.1 [facility] [address] [place] [address] 31830- 7378 Apr, [facility] [id number] [place] [address] 50315- 7262 Apr, Encounter for test, result positive Z32.01 [facility] [id number] [place] [address] 20096- 9956 March, [facility] [id number] [place] [address] 20189- 0890 March, Bipolar disorder, current episode mixed, moderate F31.62 and Generalized anxiety disorder F41.1 [place] [id number] [place] [address] [place] [address]- 3336 March, Bipolar disorder, current episode mixed, moderate F31.62 and Generalized anxiety disorder F41.1 [facility] [address], [place] [address]- 8362 March, [facility] [address] [place] [address] 06887- 2022 March, [facility] [id number] [place] [address] 58665- 0709 Feb, [facility] [address] [place] [address] 06900- 7436 Feb, [facility] [id number] [place] [address] 04940- 0291 Feb, Bipolar disorder, current episode mixed, moderate F31.62 and Generalized anxiety disorder F41.1 [facility] [address] [place] [address] 67673- 6042 Jan, Abdominal pain R10.9 [facility] [address] [place] [address] 78397- 6238 Jan, [facility] [id number] [place] [address] 01357- 0301 Dec, Dental examination Z01.20 [facility] [address] [place] [address] 16895- 7484 Dec, Dental examination Z01.20 and Dental caries K02.9 [facility] [address] [place] [address] 66418- 6220 15 Dec, 2015 Bipolar disorder, current episode mixed, moderate F31.62 and Generalized anxiety disorder F41.1 [facility] [address] [address]- 5317 Dec, [facility] [address], [place] [address]- 5953 Nov, Bipolar disorder, current episode mixed, moderate F31.62 ; Generalized anxiety disorder F41.1 and Seizure-like activity R56.9 [facility] [id number] [place] [address] 06135- 8622 Oct, [facility] [id number] [place] [address] 59344- 9116 Oct, Bipolar disorder, current episode mixed, moderate F31.62 [facility] [address] 09447- 0957 14 Oct, 2015 Well woman exam Z01.419 [...] flashes N95.1 [facility] [id number] [place] [address] 94651- 6586 09 Oct, 2015 Seizure-like activity R56.9 and Irregular periods N92.6 [facility] [id number] [place] [address] 83478- 2576 07 Oct, 2015 Bipolar disorder, current episode mixed, moderate F31.62 ; Generalized anxiety disorder F41.1 and Underweight R63.6 [facility] [id number] [place] [address] 15316- 4748 Oct, [facility] [id number] [place] [address] 65426- 2632 Oct, Generalized anxiety disorder F41.1 and Unspecified mood [ affective] disorder F39 [facility] [id number] [place] [address] 05706 -2199 Oct, Back pain M54.9 and Anxiety F41.9 [facility] [address] [place] [address]- 7405 Oct, [facility] [id number] [place] [address] 46802 -8410 Sep, Arm pain, left M79.602 [facility] [id number] [place] [address] 16336- 3372 Sep, [facility] [address] [id number] Sep, Dental examination Z01.20 and Dental caries K02.9 [facility] [id number] [place] [address] 03098- 7761 Sep, Generalized anxiety disorder F41.1 and Unspecified episodic mood disorder F39 [facility] [id number] [place] [address] 86888- 2045 Sep, Bilateral low back pain without sciatica M54.5 and Seizure- like activity R56.9 [facility] [id number] [place] [address] 34552- 8856 Aug, [facility] [id number] [place] [address] 67945- 0786 Aug, [facility] [id number] [place] [address] 72566- 5012 Aug, [facility] [id number] [place] [address] 46557- 4240 Aug, Visual changes H53.9 and Bilateral low back pain without sciatica M54.5 [facility] [id number] [place] [address] 88765- 9700 Jul, [facility] [address] 47680- 8839 Jun, Bipolar I disorder, most recent episode (or current) mixed, moderate 296.62 ; Generalized anxiety disorder 300.02 and High risk medication use V58.69 [facility] [id number] [place] [address] 14103- 9906 Jun, [facility] [address], [place] [address]- 9965 May, [facility] [id number] [place] [address] 87862- 9776 May, Bipolar I disorder, most recent episode (or current) mixed, moderate 296.62 and Generalized anxiety disorder 300.02 [facility] [address] [place] [address] [id number] May, Dental examination V72.2 [facility] [id number] [place] [address] 20929- 5636 March, Bipolar I disorder, most recent episode (or current) mixed, moderate 296.62 and Generalized anxiety disorder 300.02 [facility] [id number] [place] [address] 43491- 7396 March, [facility] [id number] [place] [address] 60002- 6526 March, [facility] [id number] [place] [address] 25140- 5085 March, Underweight 783.22 ; Hand pain, right 729.5 and Reflux gastritis 535.40 [facility] [address], [place] [address]- 3126 Feb, [facility] [id number] [place] [address] 28843- 4806 Feb, [facility] [id number] [place] [address] 75171- 5616 Jan, [facility] [id number] [place] [address] 59345- 8467 Jan, [facility] [address] [place] [address] 71470- 9816 Jan, [facility] [address] [place] [address] 719729- 9816 Jan, [facility] [place] [facility] [address] [id number] [place] [address]- 5781 13 Jan, 2014 [facility] [place] [facility] [address] [id number] [place] [address]- 5796 13 Jan, 2014 [facility] [place] [facility] [address] [id number] [place] [address]- 8406 05 Jan, 2014 [facility] [place] [facility] [address] [id number] [place] [address]- 6366 05 Jan, 2014 [facility] [place] [facility] [address] [id number] [place] [address]- 1414 04 Jan, 2014 [facility] [place] [facility] [address] [id number] [place] [address]- 9691 04 Jan, 2014 [facility] [place] [facility] [address] [facility] [address] [id number] [place] [address]- 1975 Jan, [facility] [place] [facility] [address] [id number] [place] [address]- 3295 Jan, [facility] [place] [facility] [address] [id number] [place] [address]- 5748 Dec, [facility] [place] [facility] [address] [id number] [place] [address]- 8114 20 Dec, 2014 [facility] [place] [facility] [address] [id number] [place] [address]- 0575 Dec, 2014 [facility] [place] [facility] [address] [id number] [place] [address]- 4106 Dec, 2014 [facility] [place] [facility] [address] [id number] [place] [address]- 7888 18 Dec, 2014 [facility] [place] [facility] [address] [id number] [place] [address]- 7076 17 Dec, 2014 [facility] [place] [facility] [address] [id number] [place] [address]- 5686 17 Dec, 2014 [facility] [place] [facility] [address] [id number] [place] [address]- 4106 Dec, 2014 [facility] [place] [facility] [address] [id number] [place] [address]- 7789 Dec, 2014 [facility] [place] [facility] [address] [id number] [place] [address]- 5576 Dec, 2014 [facility] [place] [facility] [address] [id number] [place] [address]- 1177 Dec, 2014 [facility] [place] [facility] [address] [id number] [place] [address]- 5156 Dec, 2014 [facility] [place] [facility] [address] [id number] [place] [address]- 2119 Dec, 2014 [facility] [place] [facility] [address] [id number] [place] [address]- 4473 Dec, 2014 [facility] [place] [facility] [address] [id number] [place] [address]- 7346 Dec, 2014 [facility] [place] [facility] [address] [id number] [place] [address]- 8259 Dec, 2014 [facility] [place] [facility] [address] [id number] [place] [address]- 0621 Dec, 2014 [facility] [place] [facility] [address] [id number] [place] [address]- 2860 Dec, 2014 [facility] [place] [facility] [address] [id number] [place] [address]- 6117 Dec, 2014 [facility] [place] [facility] [address] [id number] [place] [address]- 0116 Nov, [facility] [place] [facility] [address] [id number] [place] [address]- 9578 Nov, [facility] [place] [facility] [address] [id number] [place] [address]- 1472 Nov, [facility] [place] [facility] [address] [id number] [address]- 0518 Nov, [facility] [place] [facility] [address] [id number] [place] [address]- 7543 Nov, [facility] [place] [facility] [address] [id number] [place] [address]- 2216 Nov, [facility] [address] [id number] [place] [id number] Nov, [facility] [place] [facility] [address] [id number] [place] [address]- 2686 Nov, [facility] [place] [facility] [address] [id number] [place] [address]- 2547 Nov, [facility] [address] [id number] [place] [id number] Nov, [facility] [place] [facility] [address] [id number] [place] [address]- 2546 Nov, [facility] [place] [facility] [address] [id number], [place] [address]- 1253 Nov, [facility] [place] [facility] [address] [id number] [place] [address] Oct, [facility] [place] [facility] [address] [id number] [place] [address] Oct, [facility] [place] [facility] [address] [id number] [place] [address] Oct, [facility] [place] [facility] [address] [id number], [place] [address] Oct, [facility] [place] [facility] [address] [id number] [place] [address] Oct, [facility] [place] [facility] [address] [id number] [place] [address] Oct, [facility] [place] [facility] [address] [id number] [place] [address] Oct, [facility] [place] [facility] [address] [id number] [place] [address] Oct, [facility] [place] [facility] [address] [id number] [place] [address] Oct, [facility] [place] [facility] [address] [id number] [place] [address] Oct, [facility] [place] [facility] [address] [id number] [place] [address] Oct, [facility] [place] [facility] [address] [id number] [place] [address] Oct, [facility] [place] [facility] [address] [id number] [place] [address] Sep, [facility] [place] [facility] [address] [id number] [place] [address] Sep, [facility] [place] [facility] [address] [id number] [place] [address] Sep, [facility] [place] [facility] [address] [id number] [place] [address] Sep, [facility] [place] [facility] [address] [id number] [place] [address] 97[address] Sep, [facility] [place] [facility] [address] [id number] [place] [address] 1494 Sep, [facility] [place] [facility] [address] [id number] [place] [address] Sep, [facility] [place] [facility] [address] [id number] [place] [address] 8579 Sep, [facility] [place] [facility] [address] [id number] [place] [address] 2398 Aug, [facility] [place] [facility] [address] [id number] [place] [address]38 Aug, [facility] [place] [facility] [address] [id number] [place] [address] 6764 Aug, [facility] [place] [facility] [address] [id number] [place] [address] 0383 Aug, [facility] [place] [facility] [address] [id number] [place] [address]- 2273 Aug, [facility] [place] [facility] [address] [id number] [place] [address]- 1233 Aug, [facility] [place] [facility] [address] [id number] [place] [address] 8905 Aug, [facility] [place] [facility] [address] [id number] [place] [address]- 1702 Aug, [facility] [place] [facility] [address] [id number] [place] [address] 1980 Aug, [facility] [place] [facility] [address] [id number] [place] [address]- 9795 Aug, [facility] [place] [facility] [address] [id number] [place] [address]- 7940 Aug, [facility] [place] [facility] [address] [id number] [place] [address]- 3757 Aug, [facility] [place] [facility] [address] [id number] [place] [address]- 6958 Aug, [facility] [place] [facility] [address] [id number] [place] [address]- 4105 Jul, [facility] [place] [facility] [address] [id number] [place] [address]- 2157 22 Jul, 2014 [facility] [place] [facility] [address] [id number] [place] [address]- 8044 Jul, [facility] [place] [facility] [address] [id number] [place] [address]- 2969 Jul, [facility] [place] [facility] [address] [id number] [place] [address]- 2649 Jun, [facility] [place] [facility] [address] [id number] [place] [address]- 0903 Jun, [facility] [place] [facility] [address] [id number] [place] [address]- 9201 Jun, [facility] [place] [facility] [address] [id number] [place] [address]- 1851 Jun, [facility] [place] [facility] [address] [id number] [place] [address]- 4353 Jun, [facility] [place] [facility] [address] [id number] [place] [address]- 5006 Jun, [facility] [place] [facility] [address] [id number] [place] [address]- 5117 May, [facility] [place] [facility] [address] [id number] [place] [address]- 5051 May, [facility] [place] [facility] [address] [id number] [place] [address]- 5148 May, [facility] [place] [facility] [address] [id number] [place] [address]- 2293 May, [facility] [place] [facility] [address] [id number] [place] [address]- 6848 Apr, [facility] [place] [facility] [address] [id number] [place] [address]- 8255 Apr, [facility] [place] [facility] [address] [id number] [place] [address]- 2604 March, [facility] [place] [facility] [address] [id number] [place] [address]- 1163 March, [facility] [place] [facility] [address] [id number] [place] [address]- 4423 March, [facility] [place] [facility] [address] [id number] [place] [address]- 3376 March, [facility] [place] [facility] [address] [id number] [place] [address]- 2253 March, [facility] [place] [facility] [address] [id number] [place] [address]- 4207 March, [facility] [address] [id number] [place] [address]- 4843 Feb, [facility] [place] [facility] [address] [id number] [place] [address]- 6561 Feb, [facility] [place] [facility] [address] [id number] [place] [address]- 5295 Dec, [facility] [place] [facility] [address] [id number] [place] [address]- 0707 Dec, [facility] [place] [facility] [address] [id number] [place] [address]- 7073 Nov, [facility] [place] [facility] [address] [id number] [place] [address]- 7372 Nov, [facility] [place] [facility] [address] [id number] [place] [address]- 6491 Sep, [facility] [address] [id number] [place] [address]- 5988 Sep, [facility] [place] [facility] [address] [id number] [place] [address]- 4855 Sep, [facility] [address] [id number] [place] [address]- 5898 Sep, [facility] [place] [facility] [address] [id number] [place] [address]- 4889 Sep, [facility] [place] [facility] [address] [id number] [place] [address]- 6851 Sep, [facility] [place] [facility] [address] [id number] [place] [address]- 5301 Sep, [facility] [place] [facility] [address] [id number] [place] [address]- 8563 Aug, [facility] [place] [facility] [address] [id number] [place] Aug, [facility] [place] [facility] [address] [id number] [place] [address]- 6386 Aug, [facility] [place] [facility] [address] [id number] [place] [address]- 3982 Aug, [facility] [place] [facility] [address] [id number] [place] [address]- 8311 Aug, [facility] [place] [facility] [address] [id number] [place] [address]- 6096 Aug, [facility] [place] [facility] [address] [id number] [place] [address]- 6887 Jul, [facility] [place] [facility] [address] [id number] [place] [address]- 6801 Jul, [facility] [place] [facility] [address] [id number] [place] [address]- 0161 16 Jul, 2013 [facility] [place] [facility] [address] [id number] [place] [address]- 7984 Jul, [facility] [place] [facility] [address] [id number] [place] [address]- 2410 Jun, [facility] [place] [facility] [address] [id number], [place] [address]- 4168 Jun, [facility] [place] [facility] [address] [id number], [place] [address]- 4698 Jun, [facility] [place] [facility] [address] [id number], [place] [address]- 6364 Jun, [facility] [place] [facility] [address] [id number] [place] [address]- 6258 Jun, [facility] [place] [facility] [address] [id number], [place] [address]- 7388 Jun, [facility] [place] [facility] [address] [id number], [place] [address]- 8692 Jun, [facility] [place] [facility] [address] [id number], [place] [address]- 1679 23 May, 2013 [facility] [place] [facility] [address] [id number] [place] [address]- 0487 23 May, 2013 [facility] [place] [facility] [address] [id number] [place] [address]- 1678 16 May, 2013 [facility] [place] [facility] [address] [id number] [place] [address]- 6382 15 May, 2013 [facility] [place] [facility] [address] [id number] [place] [address]- 1004 13 May, 2013 [facility] [place] [facility] [address] [id number] [place] [address]- 2684 05 May, 2013 [facility] [place] [facility] [address] [id number] [place] [address]- 0675 03 May, 2013 [facility] [place] [facility] [address] [id number] [place] [address]- 6090 28 Apr, 2013 [facility] [place] [facility] [address] [id number] [place] [address]- 0095 27 Apr, 2013 [facility] [place] [facility] [address] [id number] [place] [address]- 7900 27 Apr, 2013 [facility] [place] [facility] [address] [id number] [place] [address]- 0074 26 Apr, 2013 [facility] [place] [facility] [address] [id number] [place] [address]- 5755 20 Apr, 2013 [facility] [place] [facility] [address] [id number], [place] [address]- 4938 18 Apr, 2013 [facility] [place] [facility] [address] [id number] [place] [address]- 1143 18 Apr, 2013 [facility] [place] [facility] [address] [id number] [place] [address]- 0574 18 Apr, 2013 [facility] [place] [facility] [address] [id number] [place] [address]- 2085 17 Apr, 2013 [facility] [place] [facility] [address] [id number] [place] [address]- 3313 14 Apr, 2013 [facility] [place] [facility] [address] [id number] [place] [address]- 5984 14 Apr, 2013 [facility] [place] [facility] [address] [id number] [place] [address]- 2824 11 Apr, 2013 [facility] [place] [facility] [address] [id number] [place] [address]- 0769 10 Apr, 2013 [facility] [place] [facility] [address] [id number] [place] [address]- 7690 09 Apr, 2013 [facility] [place] [facility] [address] [id number] [place] [address]- 7315 07 Apr, 2013 [facility] [place] [facility] [address] [id number] [place] [address]- 5522 06 Apr, 2013 [facility] [place] [facility] [address] [id number] [place] [address]- 8001 06 Apr, 2013 [facility] [place] [facility] [address] [id number] [place] [address]- 7913 05 Apr, 2013 [facility] [place] [facility] [address] [id number] [place] [address]- 8479 Apr, [facility] [place] [facility] [address] [id number] [place] [address]- 3804 March, [facility] [place] [facility] [address] [id number] [place] [address]- 2488 March, [facility] [place] [facility] [address] [id number] [place] [address]- 7726 March, [facility] [place] [facility] [address] [id number] [place] [address]- 1448 March, [facility] [place] [facility] [address] [id number] [place] [address]- 3159 March, [facility] [place] [facility] [address] [id number] [place] [address]- 1868 March, [facility] [address] [id number] [place] [address]- 1080 March, [facility] [address] [id number] [place] [address]- 7266 Feb, [facility] [address] [id number] [place] [address]- 7080 Feb, [facility] [address] [id number] [place] [address]- 3946 27 Jan, 2013 [facility] [address] [id number] [place] [address]- 3127 18 Jan, 2013 [facility] [address] [id number] [place] [address]- 7310 15 Jan, 2013 [facility] [address] [id number] [place] [address]- 5593 14 Jan, 2013 [facility] [place] [facility] [address] [id number] [place] [address]- 5265 13 Jan, 2013 [facility] [address] [id number] [place] [address]- 8845 12 Jan, 2013 [facility] [place] [facility] [address] [id number] [place] [address]- 6197 11 Jan, 2013 [facility] [place] [facility] [address] [id number] [place] [address]- 5056 09 Jan, 2013 [facility] [place] [facility] [address] [id number], [place] [address]- 5720 08 Jan, 2013 [facility] [place] [facility] [address] [id number] [place] [address]- 6963 07 Jan, 2013 [facility] [place] [facility] [address] [id number] [place] [address]- 8228 06 Jan, 2013 [facility] [place] [facility] [address] [id number] [place] [address]- 5393 17 Nov, 2012 [facility] [place] [facility] [address] [id number] [place] [address]- 0533 Oct, [facility] [place] [facility] [address] [id number] [place] [address]- 7395 Oct, [facility] [place] [facility] [address] [id number] [place] [address]- 5186 Oct, [facility] [place] [facility] [address] [id number] [place] [address]- 9561 Oct, [facility] [place] [facility] [address] [id number] [place] [address]- 2895 30 Sep, 2012 [facility] [place] [facility] [address] [id number] [place] [address]- 1900 30 Sep, 2012 [facility] [place] [facility] [address] [id number] [place] [address]- 5305 Sep, [facility] [place] [facility] [address] [id number] [place] [address]- 2053 Sep, [facility] [place] [facility] [address] [id number] [place] [address]- 1763 Sep, [facility] [place] [facility] [address] [id number] [place] [address]- 4940 Sep, [facility] [place] [facility] [address] [id number] [place] [address]- 7731 Sep, [facility] [place] [facility] [address] [id number] [place] [address]- 5704 Sep, [facility] [place] [facility] [address] [id number] [place] [address]- 1349 Sep, [facility] [place] [facility] [address] [id number] [place] [address]- 2101 Sep, [facility] [place] [facility] [address] [id number] [place] [address]- 6003 Sep, [facility] [place] [facility] [address] [id number] [place] [address]- 2580 Aug, [facility] [place] [facility] [address] [id number] [place] [address]- 5574 Aug, [facility] [place] [facility] [address] [id number] [place] [address]- 6479 Aug, [facility] [place] [facility] [address] [id number] [place] [address]- 6302 Jul, [facility] [place] [facility] [address] [id number] [place] [address], [place] [address]- 8217 25 Jul, 2012 [facility] [place] [facility] [address] [id number] [place] [address]- 1479 19 Jul, 2012 [facility] [place] [facility] [address] [id number] [place] [address]- 7421 17 Jul, 2012 [facility] [place] [facility] [address] [id number] [place] [address]- 0830 Jun, [facility] [place] [facility] [address] [id number] [place] [address]- 4839 16 Jun, 2012 [facility] [place] [facility] [address] [id number] [place] [address]- 8850 Jun, [facility] [place] [facility] [address] [id number] [place] [address]- 1634 Jun, [facility] [place] [facility] [address] [id number] [place] [address]- 6394 Jun, [facility] [place] [facility] [address] [id number] [place] [address]- 2657 March, [facility] [place] [facility] [address] [id number] [place] [address]- 2108 Feb, [facility] [place] [facility] [address] [id number] [place] [address]- 6258 Jan, [facility] [place] [facility] [address] [id number] [place] [address]- 0164 Jan, [facility] [place] [facility] [address] [id number] [place] [address]- 2546 22 Jan, 2012 [facility] [place] [facility] [address] [id number] [place] [address]- 1906 14 Jan, 2012 [facility] [place] [facility] [address] [id number] [place] [address]- 8576 14 Jan, 2012 [facility] [place] [facility] [address] [id number] [place] [address]- 3756 14 Jan, 2012 [facility] [place] [facility] [address] [id number] [place] [address]- 6624 28 Dec, 2011 [facility] [place] [facility] [address] [id number] [place] [address]- 6678 27 Dec, 2011 [facility] [place] [facility] [address] [id number] [place] 23 Dec, 2011 [facility] [address] [id number] [place] [address]- 5999 21 Dec, 2011 [facility] [place] [facility] [address] [id number] [place] [address]- 4914 20 Dec, 2011 [facility] [place] [facility] [address] [id number] [place] [address]- 4229 19 Dec, 2011 [facility] [place] [facility] [address] [id number] [place] [address]- 8201 17 Dec, 2011 [facility] [place] [facility] [address] [id number] [place] [address]- 5749 16 Dec, 2011 [facility] [place] [facility] [address] [id number] [place] [address]- 9384 31 Nov, 2011 [facility] [place] [facility] [address] [id number] [place] [address]- 8248 Oct, [facility] [place] [facility] [address] [id number] [place] [address]- 1413 18 Sep, 2011 [facility] [place] [facility] [address] [id number] [place] [address] Sep, [facility] [address] [id number], [place] [address]- 5608 Sep, [facility] [address] [id number] [address]- 9056 Sep, [facility] [address] [id number], [place] [address]- 9961 Sep, [facility] [id number] [address]- 9086 Sep, [facility] [address] [id number], [place] [address]- 1020 Jan, [facility] [address] [id number], [place] [address]- 3914 Apr, IMMUNIZATIONS No Known Immunizations SOCIAL HISTORY Never Assessed REASON FOR VISIT f/u PLAN OF CARE Activity Details Follow Up 4 Weeks Reason: f/u VITAL SIGNS Height 66 in 2018-02-21 Weight 131.8 lbs 2018-02-21 Heart Rate 96 bpm 2018-02-21 Respiratory Rate 20 2018-02-21 BMI 21.27 kg/m2 2018-02-21 Blood pressure systolic 118 mmHg 2018-02-21 Blood pressure diastolic 62 mmHg 2018-02-21 MEDICATIONS Medication Instructions Dosage Frequency Start Date End Date Duration Status Klonopin 0.5 MG Orally three times a day as needed 1 tablet Aug, 30 days Active Oxycodone-Acetaminophen 10-325 MG Orally every 4 hrs 1 tablet as needed 4h Not-Taking Lamictal 150 MG Orally Once a day 1 tablet 24h Aug, Active Remeron 30 MG Orally Once a day at bedtime 1 tablet Oct, Active Abilify 10 mg Orally Once a day 1 tablet 24h Feb, 30 day(s) Active RESULTS No Results PROCEDURES Procedure Date Ordered Result Body Site COMPREHEN METABOLIC PANEL February 21, 2018 INSTRUCTIONS MEDICATIONS ADMINISTERED No Known Medications [...]
--- OUTSIDE RECORDS SUMMARY | 2018-08-05 20:27 | XMS REPORT ---
Author Author TOMASZ MARGARITA [facility] Address [address] [place] [address] Care Team Providers Care Associate Store Director Name Role Phone TOMASZ, MARGARITA Unavailable PROBLEMS Type Condition ICD9-CM Code [id number] Code Onset Dates Condition Status SNOMED Code Problem Generalized anxiety disorder F41.1 Active 39854766 Problem Acute non intractable tension-type headache G44.209 Active 171978191 Problem Acute right-sided low back pain with right-sided sciatica M54.41 Active 146307194 Problem Post traumatic stress disorder F43.10 Active 08317022 Problem Bipolar disorder, current episode mixed, moderate F31.62 Active 809025314 Problem Endometriosis N80.9 Active 488018659 Problem Borderline personality disorder F60.3 Active 79790362 ALLERGIES Substance Reaction Event Type Date Status Thioridazine HCl tachycardia Drug Allergy Feb, Active Pristiq Unknown Drug Allergy Feb, Active Penicillin V Potassium rash Drug Allergy Feb, Active Diclofenac Sodium nausea Drug Allergy Feb, Active Depakote fatigue Drug Allergy Feb, Active ENCOUNTERS Encounter Location Date Diagnosis [facility] [id number] [address] Jul, [facility] [place] [id number] [place] [address] [id number] Jun, [facility] [id number] [place] [address] 65439- 2805 May, Palpitations R00.2 [facility] [id number] [place] [address] 31056- 8184 May, Palpitations R00.2 [facility] [id number] [address] 9[address] May, Palpitations R00.2 and Frequent bowel movements R19.4 [facility] [address] [place] [address] 98864- 7473 05 May, 2018 Bipolar disorder, current episode mixed, moderate F31.62 ; Post traumatic stress disorder F43.10 and Borderline personality disorder F60.3 [facility] [id number] [id number] 15 Apr, [address] [facility] [id number] [place] [address] 32626 -7455 15 Apr, 2018 [facility] [id number] [place] [address] 68063- 2051 15 Apr, 2018 Dental examination Z01.20 [facility] [id number] [place] [address] 52255 -7775 15 Apr, 2018 Tooth pain K08.89 [facility] [address] 18815- 9811 06 Apr, 2018 Bipolar disorder, current episode mixed, moderate F31.62 ; Post traumatic stress disorder F43.10 and Borderline personality disorder F60.3 [facility] [id number] [place] [address] 81017 -0573 March, Abdominal pain R10.9 ; UTI symptoms R39.9 and Other microscopic hematuria R31.29 [facility] [id number] [place] [address] 57903- 6802 March, [facility] [id number] [place] [address] 44613- 1990 March, Bipolar disorder, current episode mixed, moderate F31.62 ; Post traumatic stress disorder F43.10 and Borderline personality disorder F60.3 [place] [id number] [place] [address] 13174- 4134 Feb, Encounter for immunization Z23 [facility] [id number] [place] [address] 16893- 0769 Feb, Bipolar disorder, current episode mixed, moderate F31.62 ; Post traumatic stress disorder F43.10 and Borderline personality disorder F60.3 [place] [id number] [place] [address] 70005- 405 Feb, Bipolar disorder, current episode mixed, moderate F31.62 ; Post traumatic stress disorder F43.10 ; Borderline personality disorder F60.3 and 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 [place] [address] [id number] 535 Jan, Encounter for immunization Z23 [place] [address] 940596- 5739 Jan, [place] [address] 226696- 6892 Jan, Bipolar disorder, current episode mixed, moderate F31.62 [facility] [address] 11235 -4129 Jan, Lumbar back pain M54.5 [place] [address] 58817- 0869 Dec, Low back pain M54.5 [place] [address] 41799- 6661 Dec, Bipolar disorder, current episode mixed, moderate F31.62 [place] [id number] [place] [address] 22489- 7809 Dec, Generalized anxiety disorder F41.1 and Bipolar disorder, current episode mixed, moderate F31.62 [facility] [id number] [place] [address] 52729 -2872 Nov, Acute non intractable tension-type headache G44.209 [place] [id number] [place] [id number]187 Nov, Bipolar disorder, current episode mixed, moderate F31.62 ; Post traumatic stress disorder F43.10 and Borderline personality disorder F60.3 [place] [address] [place] [address]- 2420 Nov, Bipolar disorder, current episode mixed, moderate F31.62 [facility] [id number] [place] [address] 85320 -5098 Nov, Abdominal pain R10.9 ; History of PCOS Z87.42 ; History of endometriosis Z87.42 and Pelvic pain R10.2 [place] [address] 70895- 3902 Nov, [facility] [address] 55175 -9419 Oct, History of PCOS Z87.42 ; History of endometriosis Z87.42 and Pain R52 [place] [id number] [place] [address] 14913- 3509 Oct, Bipolar disorder, current episode mixed, moderate F31.62 ; Post traumatic stress disorder F43.10 and Borderline personality disorder F60.3 [place] [id number] [place] [address] 30323- 6418 Oct, Bipolar disorder, current episode mixed, moderate F31.62 [place] [id number] [place] [address] 51898- 1122 Sep, Bipolar disorder, current episode mixed, moderate F31.62 ; Post traumatic stress disorder F43.10 ; Borderline personality disorder F60.3 and 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 [place] [id number] [place] [address] 13166- 2085 Sep, Bipolar disorder, current episode mixed, moderate F31.62 [facility] [id number] [place] [address] 17431 -2159 Sep, Endometriosis N80.9 and Acute right-sided low back pain with right-sided sciatica M54.41 [place] [id number] [place] [address] 11637- 4212 Aug, [place] [id number] [place] [address] 92503- 1961 27 Aug, 2017 Bipolar disorder, current episode mixed, moderate F31.62 ; Post traumatic stress disorder F43.10 and Borderline personality disorder F60.3 [facility] [id number] [place] [address] 42950- 0602 11 Aug, 2017 Bipolar disorder, current episode mixed, moderate F31.62 ; Post traumatic stress disorder F43.10 and Borderline personality disorder F60.3 [facility] [id number] [place] [address] 18778- 3476 13 Jul, 2017 Bipolar disorder, current episode mixed, moderate F31.62 ; Post traumatic stress disorder F43.10 and Borderline personality disorder F60.3 [facility] [address] [place] [address] 95335 -6727 11 Jul, 2017 Pharyngitis, unspecified etiology J02.9 and Streptococcal pharyngitis J02.0 [place] [id number] [place] [address] 15696- 8664 16 Jun, 2017 Bipolar disorder, current episode mixed, moderate F31.62 ; Post traumatic stress disorder F43.10 and Borderline personality disorder F60.3 [place] [id number] [place] [address] 09681- 4371 May, [place] [id number] [place] [address] 68331- 6091 May, [place] [id number] [place] [address] 98092- 9931 May, Bipolar disorder, current episode mixed, moderate F31.62 and Generalized anxiety disorder F41.1 [place] [address] 24859- 8888 March, Bipolar disorder, current episode mixed, moderate F31.62 and Generalized anxiety disorder F41.1 [place] [address] [place] [address] 95267- 7211 04 Mar, 2017 Pelvic pain R10.2 [place] [address] [place] [address] 64421- 9428 March, [facility] [id number] [place] 97[address] Feb, Bipolar disorder, current episode mixed, moderate F31.62 and Generalized anxiety disorder F41.1 [facility] [id number] [place] [address] 70092- 3671 Jan, [facility] [id number] [place] 1546 Jan, Bipolar disorder, current episode mixed, moderate F31.62 [place] [id number] [place] 4928 Jan, Bipolar disorder, current episode mixed, moderate F31.62 [facility] [id number] [place] [address] 82485- 8622 Jan, Bilateral low back pain without sciatica M54.5 [facility] [id number] [place] [address] [id number] Jan, Dental caries K02.9 and Dental examination Z01.20 [facility] [id number] [place] [address] [phone] Jan, Encounter for dental examination and cleaning without abnormal findings Z01.20 [facility] [id number] [place] [address] 13269- 8548 Jan, Bipolar disorder, current episode mixed, moderate F31.62 and Generalized anxiety disorder F41.1 [facility] [id number] [place] [address] 29925- 8415 Dec, [facility] [id number] [place] [address]- 3989 Dec, Bipolar disorder, current episode mixed, moderate F31.62 and Generalized anxiety disorder F41.1 [facility] [id number] [place] [address] 90422- 6706 Dec, Other fatigue R53.83 and Orthostatic hypotension I95.1 [facility] [address] [id number] Nov, Dental examination Z01.20 [facility] [address] [place] [address] 31286 -2550 Nov, Bronchitis J40 [facility] [id number] [place] [address] 42874- 1530 Oct, Generalized anxiety disorder F41.1 [facility] [id number] [place] [address] 10306- 5725 Sep, Bipolar disorder, current episode mixed, moderate F31.62 and Generalized anxiety disorder F41.1 [place] [id number] [place] [address] 83802- 7204 Sep, Bipolar disorder, current episode mixed, moderate F31.62 and Generalized anxiety disorder F41.1 [facility] [address] [place] [address] 76336 -8024 08 Jul, 2016 Upper respiratory tract infection, unspecified type J06.9 [place] [id number] [place] [address] 67398- 9278 Jun, Bipolar disorder, current episode mixed, moderate F31.62 and Generalized anxiety disorder F41.1 [place] [address] [place] [address] 98762- 6011 Apr, [facility] [id number] [place] [address] 83447- 2361 Apr, Encounter for test, result positive Z32.01 [place] [id number] [place] [address] 64499- 2257 March, [facility] [id number] [place] [address] 98082- 1389 March, Bipolar disorder, current episode mixed, moderate F31.62 and Generalized anxiety disorder F41.1 [place] [id number] [place] [address] [place] [address]- 9746 March, Bipolar disorder, current episode mixed, moderate F31.62 and Generalized anxiety disorder F41.1 [facility] [address] [address]- 7337 March, [facility] [address] [place] [address] 59772- 5530 March, [facility] [id number] [place] [address] 72354- 7217 Feb, [facility] [address] [place] [address] 26835- 0858 Feb, [facility] [id number] [place] [address] 10688- 3584 Feb, Bipolar disorder, current episode mixed, moderate F31.62 and Generalized anxiety disorder F41.1 [facility] [address] [place] [address] 16521- 2718 Jan, Abdominal pain R10.9 [facility] [address] [place] [address] 31198- 1268 Jan, [facility] [id number] [place] [address] 08536- 3953 Dec, Dental examination Z01.20 [facility] [address] [place] [address] 13697- 4536 Dec, Dental examination Z01.20 and Dental caries K02.9 [facility] [address] [place] [address] 58351- 5024 15 Dec, 2015 Bipolar disorder, current episode mixed, moderate F31.62 and Generalized anxiety disorder F41.1 [facility] [address] [address]- 1481 Dec, [facility] [address], [place] [address]- 4481 Nov, Bipolar disorder, current episode mixed, moderate F31.62 ; Generalized anxiety disorder F41.1 and Seizure-like activity R56.9 [facility] [id number] [place] [address] 32075- 9912 Oct, [facility] [id number] [place] [address] 35710- 1850 Oct, Bipolar disorder, current episode mixed, moderate F31.62 [facility] [address] 27764- 0877 14 Oct, 2015 Well woman exam Z01.419 [...] Z72.0 and Hot flashes N95.1 [facility] [id number] [place] [address] 69846- 7500 09 Oct, 2015 Seizure-like activity R56.9 and Irregular periods N92.6 [place] [id number] [place] [address] 19323- 2106 07 Oct, 2015 Bipolar disorder, current episode mixed, moderate F31.62 ; Generalized anxiety disorder F41.1 and Underweight R63.6 [facility] [id number] [place] [address] 35398- 8657 Oct, [facility] [id number] [place] [address] 39989- 6541 Oct, Generalized anxiety disorder F41.1 and Unspecified mood [ affective] disorder F39 [facility] [id number] [place] [address] 37844 -9364 Oct, Back pain M54.9 and Anxiety F41.9 [facility] [address] [place] [address]- 9516 Oct, [facility] [id number] [place] [address] 47492 -6637 Sep, Arm pain, left M79.602 [facility] [id number] [place] [address] 36298- 1041 Sep, [facility] [address] [id number] Sep, Dental examination Z01.20 and Dental caries K02.9 [facility] [id number] [place] [address] 96828- 8384 Sep, Generalized anxiety disorder F41.1 and Unspecified episodic mood disorder F39 [facility] [id number] [place] [address] 49510- 6518 Sep, Bilateral low back pain without sciatica M54.5 and Seizure- like activity R56.9 [facility] [id number] [place] [address] 00062- 2959 Aug, [facility] [id number] [place] [address] 51387- 6898 Aug, [facility] [id number] [place] [address] 05570- 2465 Aug, [facility] [id number] [place] [address] 01388- 4499 Aug, Visual changes H53.9 and Bilateral low back pain without sciatica M54.5 [facility] [address] [place] [address] 28280- 6391 Jul, [facility] [address] 66886- 5984 Jun, Bipolar I disorder, most recent episode (or current) mixed, moderate 296.62 ; Generalized anxiety disorder 300.02 and High risk medication use V58.69 [facility] [id number] [place] [address] 54503- 4476 Jun, [facility] [address] [address]- 8829 May, [facility] [id number] [place] [address] 60838- 5226 May, Bipolar I disorder, most recent episode (or current) mixed, moderate 296.62 and Generalized anxiety disorder 300.02 [facility] [address] [place] [address] [id number] May, Dental examination V72.2 [facility] [id number] [place] [address] 96023- 0276 March, Bipolar I disorder, most recent episode (or current) mixed, moderate 296.62 and Generalized anxiety disorder 300.02 [facility] [id number] [place] [address] 30739- 8806 March, [facility] [id number] [place] [address] 02062- 8536 March, [facility] [id number] [place] [address] 97177- 3836 March, Underweight 783.22 ; Hand pain, right 729.5 and Reflux gastritis 535.40 [facility] [address] [address]- 8366 Feb, [facility] [id number] [place] [address] 81542- 6026 Feb, [facility] [id number] [place] [address] 52892- 7986 Jan, [facility] [id number] [place] [address] 05160- 0967 Jan, [facility] [address] [place] [address] 42751- 6066 Jan, [facility] [address] [place] [address] 646316- 8726 Jan, [facility] [place] [facility] [address] [id number] [place] [address]- 8561 13 Jan, 2014 [facility] [place] [facility] [address] [id number] [place] [address]- 8918 13 Jan, 2014 [facility] [place] [facility] [address] [id number] [place] [address]- 0954 05 Jan, 2014 [facility] [place] [facility] [address] [id number] [place] [address]- 2514 05 Jan, 2014 [facility] [place] [facility] [address] [id number] [place] [address]- 0851 04 Jan, 2014 [facility] [place] [facility] [address] [id number] [place] [address]- 4368 04 Jan, 2014 [facility] [place] [facility] [address] [facility] [id number] [place] [address]- 1375 Jan, [facility] [place] [facility] [address] [id number] [place] [address]- 7310 Jan, [facility] [place] [facility] [address] [id number] [place] [address]- 6297 Dec, [facility] [place] [facility] [address] [facility] [id number] [place] [address]- 1371 20 Dec, 2014 [facility] [place] [facility] [address] [facility] [id number] [place] [address]- 2067 Dec, 2014 [facility] [place] [facility] [address] [id number] [place] [address]- 5985 Dec, 2014 [facility] [place] [facility] [address] [id number] [place] [address]- 8334 18 Dec, 2014 [facility] [place] [facility] [address] [id number] [place] [address]- 7287 17 Dec, 2014 [facility] [place] [facility] [address] [facility] [id number] [place] [address]- 7088 17 Dec, 2014 [facility] [place] [facility] [address] [facility] [id number] [place] [address]- 3983 Dec, 2014 [facility] [place] [facility] [address] [id number] [place] [address]- 3747 Dec, 2014 [facility] [place] [facility] [address] [id number] [place] [address]- 1106 Dec, 2014 [facility] [place] [facility] [address] [facility] [id number] [place] [address]- 8869 Dec, 2014 [facility] [place] [facility] [address] [id number] [place] [address]- 0431 Dec, 2014 [facility] [place] [facility] [address] [facility] [id number] [place] [address]- 4173 Dec, 2014 [facility] [place] [facility] [address] [facility] [id number] [place] [address]- 0978 Dec, 2014 [facility] [place] [facility] [address] [facility] [id number] [place] [address]- 9194 Dec, 2014 [facility] [place] [facility] [address] [facility] [id number] [place] [address]- 8510 Dec, 2014 [facility] [place] [facility] [address] [facility] [id number] [place] [address]- 2742 Dec, 2014 [facility] [place] [facility] [address] [facility] [id number] [place] [address]- 7419 Dec, 2014 [facility] [place] [facility] [address] [facility] [id number] [place] [address] Dec, 2014 [facility] [place] [facility] [address] [facility] [id number] [place] [address] Nov, [facility] [place] [facility] [address] [facility] [id number] [place] [address] Nov, [facility] [place] [facility] [address] [facility] [id number] [place] [address] Nov, [facility] [place] [facility] [address] [facility] [id number] [address] Nov, [facility] [place] [facility] [address] [id number] [place] [address] Nov, [facility] [place] [facility] [address] [id number] [place] [address] Nov, [facility] [address] [id number] [place] [id number] Nov, [facility] [place] [facility] [address] [id number] [place] [address] Nov, [facility] [place] [facility] [address] [id number] [place] [address] Nov, [facility] [address] [id number] [place] [id number] Nov, [facility] [place] [facility] [address] [id number] [place] [address] Nov, [facility] [place] [facility] [address] [id number], [place] [address] Nov, [facility] [place] [facility] [address] [id number] [place] [address] Oct, [facility] [place] [facility] [address] [id number] [place] [address] Oct, [facility] [place] [facility] [address] [id number] [place] [address] Oct, [facility] [place] [facility] [address] [id number], [place] [address] Oct, [facility] [place] [facility] [address] [id number] [place] [address] Oct, [facility] [place] [facility] [address] [id number] [place] [address] Oct, [facility] [place] [facility] [address] [id number] [place] [address] Oct, [facility] [place] [facility] [address] [id number] [place] Oct, [facility] [place] [facility] [address] [id number] [place] [address] Oct, [facility] [place] [facility] [address] [id number] [place] [address] Oct, [facility] [place] [facility] [address] [facility] [id number] [place] [address] Oct, [facility] [place] [facility] [address] [id number] [place] [address] Oct, [facility] [place] [facility] [address] [id number] [place] [address] Sep, [facility] [place] [facility] [address] [address] [id number] [place] [address] Sep, [facility] [place] [facility] [address] [id number] [place] [address] Sep, [facility] [place] [facility] [address] [id number] [place] [address] 4085 Sep, [facility] [place] [facility] [address] [id number] [place] [address]114 Sep, [facility] [place] [facility] [address] [facility] [id number] [place] [address]- 9254 Sep, [facility] [place] [facility] [address] [id number] [place] [address] 2996 Sep, [facility] [place] [facility] [address] [id number] [place] [address] 4292 Sep, [facility] [place] [facility] [address] [id number] [place] [address] 9395 Aug, [facility] [place] [facility] [address] [id number] [place] [address] 3115 Aug, [facility] [place] [facility] [address] [facility] [id number] [place] [address] 6184 Aug, [facility] [place] [facility] [address] [id number] [place] [address] 1799 Aug, [facility] [place] [facility] [address] [id number] [place] [address] 2703 Aug, [facility] [place] [facility] [address] [id number] [place] [address]- 5395 Aug, [facility] [place] [facility] [address] [id number] [place] [address] Aug, [facility] [place] [facility] [address] [id number] [place] [address] 5529 Aug, [facility] [place] [facility] [address] [id number] [place] [address]- 1488 Aug, [facility] [place] [facility] [address] [id number] [place] [address]- 7949 Aug, [facility] [place] [facility] [address] [id number] [place] [address]- 5363 Aug, [facility] [place] [facility] [address] [id number] [place] [address]- 8643 Aug, [facility] [place] [facility] [address] [id number] [place] [address]- 9732 Aug, [facility] [place] [facility] [address] [id number] [place] [address]- 7773 Jul, [facility] [place] [facility] [address] [id number] [place] [address]- 6808 22 Jul, 2014 [facility] [place] [facility] [address] [id number] [place] [address]- 0267 Jul, [facility] [place] [facility] [address] [id number] [place] [address]- 4823 Jul, [facility] [place] [facility] [address] [id number] [place] [address]- 6376 Jun, [facility] [place] [facility] [address] [id number] [place] [address]- 4444 Jun, [facility] [place] [facility] [address] [id number] [place] [address]- 4069 Jun, [facility] [place] [facility] [address] [id number] [place] [address]- 7756 Jun, [facility] [place] [facility] [address] [id number] [place] [address]- 6993 Jun, [facility] [place] [facility] [address] [id number] [place] [address]- 0684 Jun, [facility] [place] [facility] [address] [id number] [place] [address] 1999 May, [facility] [place] [facility] [address] [id number] [place] [address]- 0846 May, [facility] [place] [facility] [address] [id number] [place] [address]- 6162 May, [facility] [place] [facility] [address] [id number] [place] [address]- 2828 May, [facility] [place] [facility] [address] [id number] [place] [address]- 9558 Apr, [facility] [place] [facility] [address] [id number] [place] [address]- 0737 Apr, [facility] [place] [facility] [address] [id number] [place] [address]- 8653 March, [facility] [place] [facility] [address] [id number] [place] [address]- 1745 March, [facility] [place] [facility] [address] [id number] [place] [address]- 1679 March, [facility] [place] [facility] [address] [id number] [place] [address]- 4715 March, [facility] [place] [facility] [address] [id number] [place] [address]- 0085 March, [facility] [place] [facility] [address] [id number] [place] [address]- 5690 March, [facility] [address] [id number] [place] [address]- 6694 Feb, [facility] [place] [facility] [address] [id number] [place] [address]- 3787 Feb, [facility] [place] [facility] [address] [id number] [place] [address]- 9160 Dec, [facility] [place] [facility] [address] [id number] [place] [address]- 3879 Dec, [facility] [place] [facility] [address] [id number] [place] [address]- 0158 Nov, [facility] [place] [facility] [address] [id number] [place] [address]- 1179 Nov, [facility] [place] [facility] [address] [id number] [place] [address]- 7856 Sep, [facility] [address] [id number] [place] [address]- 0320 Sep, [facility] [place] [facility] [address] [id number] [place] [address]- 0151 Sep, [facility] [address] [id number] [place] [address]- 8985 Sep, [facility] [place] [facility] [address] [id number] [place] [address]- 3065 Sep, [facility] [place] [facility] [address] [id number] [place] [address]- 3439 Sep, [facility] [place] [facility] [address] [id number] [place] [address]- 0503 Sep, [facility] [place] [facility] [address] [id number] [place] [address]- 9721 Aug, [facility] [place] [facility] [address] [id number] [place] [address] Aug, [facility] [place] [facility] [address] [id number] [place] [address]- 6025 Aug, [facility] [place] [facility] [address] [id number] [place] [address]- 4456 Aug, [facility] [place] [facility] [address] [id number] [place] [address]- 7210 Aug, [facility] [place] [facility] [address] [id number] [place] [address]- 9543 Aug, [facility] [place] [facility] [address] [id number] [place] [address]- 7095 Jul, [facility] [place] [facility] [address] [id number] [place] [address]- 0736 Jul, [facility] [place] [facility] [address] [id number] [place] [address]- 9381 16 Jul, 2013 [facility] [place] [facility] [address] [id number] [place] [address]- 6216 Jul, [facility] [place] [facility] [address] [id number] [place] [address]- 4053 Jun, [facility] [place] [facility] [address] [id number] [address] 1841 Jun, [facility] [place] [facility] [address] [id number], [place] [address]- 0954 Jun, [facility] [place] [facility] [address] [id number], [place] [address]- 5321 Jun, [facility] [place] [facility] [address] [id number] [place] [address]- 8287 Jun, [facility] [place] [facility] [address] [id number] [address]- 7890 Jun, [facility] [place] [facility] [address] [id number], [place] [address]- 9324 Jun, [facility] [place] [facility] [address] [id number], [place] [address]- 2382 23 May, 2013 [facility] [place] [facility] [address] [id number] [place] [address]- 6854 23 May, 2013 [facility] [place] [facility] [address] [id number] [place] [address]- 2917 16 May, 2013 [facility] [place] [facility] [address] [id number] [place] [address]- 5192 15 May, 2013 [facility] [place] [facility] [address] [id number] [place] [address]- 5812 13 May, 2013 [facility] [place] [facility] [address] [id number] [place] [address]- 6733 05 May, 2013 [facility] [place] [facility] [address] [id number] [place] [address]- 6488 03 May, 2013 [facility] [place] [facility] [address] [id number] [place] [address]- 9821 28 Apr, 2013 [facility] [place] [facility] [address] [id number] [place] [address]- 8544 27 Apr, 2013 [facility] [place] [facility] [address] [id number] [place] [address]- 4192 27 Apr, 2013 [facility] [place] [facility] [address] [id number] [place] [address]- 2606 26 Apr, 2013 [facility] [place] [facility] [address] [id number] [place] [address]- 0880 20 Apr, 2013 [facility] [place] [facility] [address] [id number] [address]- 8267 18 Apr, 2013 [facility] [place] [facility] [address] [id number] [place] [address]- 6139 18 Apr, 2013 [facility] [place] [facility] [address] [id number] [place] [address]- 0591 18 Apr, 2013 [facility] [place] [facility] [address] [id number] [place] [address]- 1224 17 Apr, 2013 [facility] [place] [facility] [address] [id number] [place] [address]- 4789 14 Apr, 2013 [facility] [place] [facility] [address] [id number] [place] [address]- 3549 14 Apr, 2013 [facility] [place] [facility] [address] [id number] [place] [address]- 7131 11 Apr, 2013 [facility] [place] [facility] [address] [id number] [place] [address]- 0374 10 Apr, 2013 [facility] [place] [facility] [address] [id number] [place] [address]- 5048 09 Apr, 2013 [facility] [place] [facility] [address] [id number] [place] [address]- 4788 07 Apr, 2013 [facility] [place] [facility] [address] [id number] [place] [address]- 0641 06 Apr, 2013 [facility] [place] [facility] [address] [id number] [place] [address]- 8322 06 Apr, 2013 [facility] [place] [facility] [address] [id number] [place] [address]- 1917 05 Apr, 2013 [facility] [place] [facility] [address] [id number] [place] [address]- 9097 Apr, [facility] [place] [facility] [address] [id number] [place] [address]- 9406 March, [facility] [place] [facility] [address] [id number] [place] [address]- 2025 March, [facility] [place] [facility] [address] [id number] [place] [address]- 5643 March, [facility] [place] [facility] [address] [id number] [place] [address]- 6939 March, [facility] [place] [facility] [address] [id number] [place] [address]- 9056 March, [facility] [place] [facility] [address] [id number] [place] [address]- 9606 March, [facility] [address] [id number] [place] [address]- 1761 March, [facility] [address] [id number] [place] [address]- 8760 Feb, [facility] [address] [id number] [place] [address]- 7229 Feb, [facility] [address] [id number] [place] [address]- 4268 27 Jan, 2013 [facility] [address] [id number] [place] [address]- 3115 18 Jan, 2013 [facility] [address] [id number] [place] [address]- 2670 15 Jan, 2013 [facility] [address] [id number] [place] [address]- 3005 14 Jan, 2013 [facility] [place] [facility] [address] [id number] [place] [address]- 6920 13 Jan, 2013 [facility] [address] [id number] [place] [address]- 1427 12 Jan, 2013 [facility] [place] [facility] [address] [id number] [place] [address]- 1666 11 Jan, 2013 [facility] [place] [facility] [address] [id number] [place] [address]- 7977 09 Jan, 2013 [facility] [place] [facility] [address] [id number], [place] [address]- 2380 08 Jan, 2013 [facility] [place] [facility] [address] [id number] [place] [address]- 7753 07 Jan, 2013 [facility] [place] [facility] [address] [id number] [place] [address]- 2950 06 Jan, 2013 [facility] [place] [facility] [address] [id number] [place] [address]- 5696 17 Nov, 2012 [facility] [place] [facility] [address] [id number] [place] [address]- 0831 Oct, [facility] [place] [facility] [address] [id number] [place] [address]- 8849 Oct, [facility] [place] [facility] [address] [id number] [place] [address]- 9526 Oct, [facility] [place] [facility] [address] [id number] [place] [address]- 3327 Oct, [facility] [place] [facility] [address] [id number] [place] [address]- 8758 30 Sep, 2012 [facility] [place] [facility] [address] [id number] [place] [address]- 0253 30 Sep, 2012 [facility] [place] [facility] [address] [id number] [place] [address]- 8854 Sep, [facility] [place] [facility] [address] [id number] [place] [address]- 8574 Sep, [facility] [place] [facility] [address] [id number] [place] [address]- 2173 Sep, [facility] [place] [facility] [address] [id number] [place] [address]- 8444 Sep, [facility] [place] [facility] [address] [facility] [id number] [place] [address]- 8164 Sep, [facility] [place] [facility] [address] [id number] [place] [address]- 5665 Sep, [facility] [place] [facility] [address] [id number] [place] [address]- 4470 Sep, [facility] [place] [facility] [address] [id number] [place] [address]- 5282 Sep, [facility] [place] [facility] [address] [facility] [id number] [place] [address]- 6801 Sep, [facility] [place] [facility] [address] [id number] [place] [address]- 3314 Aug, [facility] [place] [facility] [address] [id number] [place] [address]- 5405 Aug, [facility] [place] [facility] [address] [id number] [place] [address]- 0496 Aug, [facility] [place] [facility] [address] [id number] [place] [address]- 7145 Jul, [facility] [place] [facility] [address] [id number] [place] [address], [place] [address]- 1539 25 Jul, 2012 [facility] [place] [facility] [address] [id number] [place] [address]- 0712 19 Jul, 2012 [facility] [place] [facility] [address] [id number] [place] [address]- 0380 17 Jul, 2012 [facility] [place] [facility] [address] [id number] [place] [address]- 6867 Jun, [facility] [place] [facility] [address] [id number] [place] [address]- 8157 16 Jun, 2012 [facility] [place] [facility] [address] [id number] [place] [address]- 7139 Jun, [facility] [place] [facility] [address] [id number] [place] [address]- 5175 Jun, [facility] [place] [facility] [address] [id number] [place] [address]- 3805 Jun, [facility] [place] [facility] [address] [id number] [place] [address]- 0992 March, [facility] [place] [facility] [address] [id number] [place] [address]- 4404 Feb, [facility] [place] [facility] [address] [id number] [place] [address]- 6197 Jan, [facility] [place] [facility] [address] [id number] [place] [address]- 1571 Jan, [facility] [place] [facility] [address] [id number] [place] [address]- 2546 22 Jan, 2012 [facility] [place] [facility] [address] [id number] [place] [address]- 2736 14 Jan, 2012 [facility] [place] [facility] [address] [id number] [place] [address]- 0436 14 Jan, 2012 [facility] [place] [facility] [address] [facility] [id number] [place] [address]- 5956 14 Jan, 2012 [facility] [place] [facility] [address] [id number] [place] [address]- 8014 28 Dec, 2011 [facility] [place] [facility] [address] [id number] [place] [address]- 9405 27 Dec, 2011 [facility] [place] [facility] [address] [id number] [place] 3548 23 Dec, 2011 [facility] [address] [facility] [id number] [place] [address]- 5660 21 Dec, 2011 [facility] [place] [facility] [address] [id number] [place] [address]- 1460 20 Dec, 2011 [facility] [place] [facility] [address] [facility] [id number] [place] [address]- 7650 19 Dec, 2011 [facility] [place] [facility] [address] [facility] [id number] [place] [address]- 3493 17 Dec, 2011 [facility] [place] [facility] [address] [facility] [id number] [place] [address]- 4609 16 Dec, 2011 [facility] [place] [facility] [address] [id number] [place] [address]- 1001 31 Nov, 2011 [facility] [place] [facility] [address] [id number] [place] [address]- 7170 Oct, [facility] [place] [facility] [address] [facility] [id number] [place] [address]- 7435 18 Sep, 2011 [facility] [place] [facility] [address] [facility] [id number] [place] 0186 Sep, [facility] [address] [facility] [id number], [place] [address]- 5536 Sep, [facility] [address] [id number] [address]- 6300 Sep, [facility] [address] [id number], [place] [address]- 1535 Sep, [facility] [id number] [address]- 4303 Sep, [facility] [address] [facility] [id number], [place] [address]- [address] Jan, [facility] [address] [id number], [place] [address]- 5749 Apr, IMMUNIZATIONS No Known Immunizations SOCIAL HISTORY Never Assessed REASON FOR VISIT f/u PLAN OF CARE Activity Details Follow Up 3 Weeks Reason: f/u VITAL SIGNS Height 66 in 2018-02-26 Weight 130.7 lbs 2018-02-26 Heart Rate 108 bpm 2018-02-26 Respiratory Rate 20 2018-02-26 BMI 21.09 kg/m2 2018-02-26 Blood pressure systolic 106 mmHg 2018-02-26 Blood pressure diastolic 72 mmHg 2018-02-26 MEDICATIONS Medication Instructions Dosage Frequency Start Date End Date Duration Status Klonopin 0.5 MG Orally three times a day as needed 1 tablet Aug, Active Oxycodone-Acetaminophen 10-325 MG Orally every 4 hrs 1 tablet as needed 4h Not-Taking Abilify 15 mg Orally Once a day 1/2 tablet 24h Feb, 30 day(s) Active Remeron 30 MG Orally Once a day at bedtime 1 tablet Oct, Active Lamictal 200 mg Orally Once a [...] History Left ovary removed 12/2016 Hospitalization History [place] Admission x4 2010 most recent admission Hospitalization History [facility]; overdose 2010 Hospitalization History child 11/29/2016
--- OUTSIDE RECORDS SUMMARY | 2018-08-05 20:28 | XMS REPORT ---
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 Name Role Phone LISA FLO Unavailable PROBLEMS Type Condition ICD9-CM Code VBR48-NS Code Onset Dates Condition Status SNOMED Code Problem Generalized anxiety disorder F41.1 Active 93800705 Problem Acute non intractable tension-type headache G44.209 Active 907627201 Problem Acute right-sided low back pain with right-sided sciatica M54.41 Active 689453015 Problem Post traumatic stress disorder F43.10 Active 30637165 Problem Bipolar disorder, current episode mixed, moderate F31.62 Active 010588103 Problem Endometriosis N80.9 Active 168864578 Problem Borderline personality disorder F60.3 Active [id number] ALLERGIES No Information ENCOUNTERS Encounter Location Date Diagnosis [facility] [id number] [place] [address] 42291- 9496 Jul, [facility] [id number] [place] [address] [id number] Jun, [facility] [id number] [place] [address] 70866- 3361 May, Palpitations R00.2 [facility] [id number] [place] [address] 64461- 1811 May, Palpitations R00.2 [facility] [address] 05165- 2684 May, Palpitations R00.2 and Frequent bowel movements R19.4 [facility] [id number] [place] [address] 93653- 5975 May, Bipolar disorder, current episode mixed, moderate F31.62 ; Post traumatic stress disorder F43.10 and Borderline personality disorder F60.3 [facility] [id number] [id number] 15 Apr, 2018 Dental examination Z01.20 [facility] [address], [place] [address] 15 Apr, 2018 [facility] [id number] [place] [address] 28893- 2668 15 Apr, 2018 Dental examination Z01.20 [facility] [id number] [place] [address] 83775 -8428 15 Apr, 2018 Tooth pain K08.89 [facility] [id number] [place] [address] 83086- 6454 06 Apr, 2018 Bipolar disorder, current episode mixed, moderate F31.62 ; Post traumatic stress disorder F43.10 and Borderline personality disorder F60.3 [facility] [id number] [place] [address] 96059 -2270 18 Mar, 2018 Abdominal pain R10.9 ; UTI symptoms R39.9 and Other microscopic hematuria R31.29 [facility] [id number] [place] [address] 76913- 5441 March, [facility] [id number] [place] [address] 78846- 5981 March, Bipolar disorder, current episode mixed, moderate F31.62 ; Post traumatic stress disorder F43.10 and Borderline personality disorder F60.3 [facility] [id number] [place] [address] 64627- 4047 30 Feb, 2018 Encounter for immunization Z23 [facility] [id number] [place] [address] 79138- 5362 16 Feb, 2018 Bipolar disorder, current episode mixed, moderate F31.62 ; Post traumatic stress disorder F43.10 and Borderline personality disorder F60.3 [facility] [id number] [place] [address] 86513- 0994 Feb, Bipolar disorder, current episode mixed, moderate F31.62 ; Post traumatic stress disorder F43.10 ; Borderline personality disorder F60.3 and Other long term care pharmacist (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 Z79.8[address] [address] 05136- 4227 Jan, Encounter for immunization Z23 [facility] [address] 65480- 6758 Jan, [place] [address] 49318- 5022 Jan, Bipolar disorder, current episode mixed, moderate F31.62 [facility] [address] 61856 -1452 Jan, Lumbar back pain M54.5 [place] [address] 91389- 3556 Dec, Low back pain M54.5 [place] [address] 49174- 6675 Dec, Bipolar disorder, current episode mixed, moderate F31.62 [place] [address] 79760- 9585 Dec, Generalized anxiety disorder F41.1 and Bipolar disorder, current episode mixed, moderate F31.62 [facility] [id number] [place] [address] 10391 -4712 Nov, Acute non intractable tension-type headache G44.209 [facility] [id number] [place] [address] 89501- 8408 Nov, Bipolar disorder, current episode mixed, moderate F31.62 ; Post traumatic stress disorder F43.10 and Borderline personality disorder F60.3 [place] [id number] [place] [address] 98582- 6635 Nov, Bipolar disorder, current episode mixed, moderate F31.62 [facility] [address] 35876 -7173 Nov, Abdominal pain R10.9 ; History of PCOS Z87.42 ; History of endometriosis Z87.42 and Pelvic pain R10.2 [place] [id number] [place] [address] 30591- 0122 Nov, [facility] [id number] [place] [address] 47442 -6013 Oct, History of PCOS Z87.42 ; History of endometriosis Z87.42 and Pain R52 [facility] [id number] [place] [address] 80206- 1216 Oct, Bipolar disorder, current episode mixed, moderate F31.62 ; Post traumatic stress disorder F43.10 and Borderline personality disorder F60.3 [place] [id number] [place] [address] 76602- 4005 Oct, Bipolar disorder, current episode mixed, moderate F31.62 [place] [id number] [place] [address] 26759- 9449 Sep, Bipolar disorder, current episode mixed, moderate F31.62 ; Post traumatic stress disorder F43.10 ; Borderline personality disorder F60.3 and Other senior living (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 Z79.899 [place] [id number] [place] [address] 41136- 0888 Sep, Bipolar disorder, current episode mixed, moderate F31.62 [facility] [id number] [place] [address] 01000 -4142 Sep, Endometriosis N80.9 and Acute right-sided low back pain with right-sided sciatica M54.41 [place] [id number] [place] [address] 61135- 6945 Aug, [place] [id number] [place] [address] 60768- 5072 Aug, Bipolar disorder, current episode mixed, moderate F31.62 ; Post traumatic stress disorder F43.10 and Borderline personality disorder F60.3 [place] [address], [place] [address]- 0429 11 Aug, 2017 Bipolar disorder, current episode mixed, moderate F31.62 ; Post traumatic stress disorder F43.10 and Borderline personality disorder F60.3 [facility] [address], [place] [address]- 6709 13 Jul, 2017 Bipolar disorder, current episode mixed, moderate F31.62 ; Post traumatic stress disorder F43.10 and Borderline personality disorder F60.3 [facility] [id number] [place] [address] 83365 -2060 11 Jul, 2017 Pharyngitis, unspecified etiology J02.9 and Streptococcal pharyngitis J02.0 [facility] [id number] [place] [address] 65097- 8270 16 Jun, 2017 Bipolar disorder, current episode mixed, moderate F31.62 ; Post traumatic stress disorder F43.10 and Borderline personality disorder F60.3 [place] [id number] [place] [address] 40557- 2463 May, [facility] [id number] [place] [address] 38788- 5455 May, [facility] [id number] [place] [address] 70285- 1953 May, Bipolar disorder, current episode mixed, moderate F31.62 and Generalized anxiety disorder F41.1 [facility] [id number] [place] [address] 11535- 9197 March, Bipolar disorder, current episode mixed, moderate F31.62 and Generalized anxiety disorder F41.1 [place] [id number] [place] [address] 44794- 4148 March, Pelvic pain R10.2 [facility] [id number] [place] [address] 10238- 2929 March, [facility] [id number] [place] [address] 23785- 0215 Feb, Bipolar disorder, current episode mixed, moderate F31.62 and Generalized anxiety disorder F41.1 [facility] [id number] [place] [address]- 9341 Jan, [facility] [id number] [place] [address]- 4897 Jan, Bipolar disorder, current episode mixed, moderate F31.62 [facility] [address] 985558- 7607 Jan, Bipolar disorder, current episode mixed, moderate F31.62 [facility] [id number] [place] [address] 29201- 6208 Jan, Bilateral low back pain without sciatica M54.5 [facility] [id number] [place] [address] [id number] Jan, Dental caries K02.9 and Dental examination Z01.20 [facility] [address] [id number] Jan, Encounter for dental examination and cleaning without abnormal findings Z01.20 [facility] [id number] [place] [address] 29427- 9254 Jan, Bipolar disorder, current episode mixed, moderate F31.62 and Generalized anxiety disorder F41.1 [facility] [id number] [place] [address] 62959- 3812 Dec, [facility] [id number] [place] [address]- 7935 Dec, Bipolar disorder, current episode mixed, moderate F31.62 and Generalized anxiety disorder F41.1 [facility] [id number] [place]- 0738 Dec, Other fatigue R53.83 and Orthostatic hypotension I95.1 [facility] [id number] [place] [address] [id number] Nov, Dental examination Z01.20 [facility] [id number] [place] [address] 32611 -3043 02 Nov, 2016 Bronchitis J40 [facility] [id number] [place] [address] 34612- 1767 14 Oct, 2016 Generalized anxiety disorder F41.1 [facility] [id number] [place] [address] 47290- 9288 14 Sep, 2016 Bipolar disorder, current episode mixed, moderate F31.62 and Generalized anxiety disorder F41.1 [facility] [id number] [place] [address] 66262- 5305 02 Sep, 2016 Bipolar disorder, current episode mixed, moderate F31.62 and Generalized anxiety disorder F41.1 [facility] [id number] [place] [address] 17041 -3348 08 Jul, 2016 Upper respiratory tract infection, unspecified type J06.9 [place] [id number] [place] [address] 69165- 9862 Jun, Bipolar disorder, current episode mixed, moderate F31.62 and Generalized anxiety disorder F41.1 [place] [id number] [place] [address] 31264- 7243 Apr, [place] [id number] [place] [address] 75755- 9754 Apr, Encounter for test, result positive Z32.01 [place] [id number] [place] [address] 36791- 3551 March, [place] [id number] [place] [address] 87717- 7954 March, Bipolar disorder, current episode mixed, moderate F31.62 and Generalized anxiety disorder F41.1 [place] [id number] [place] [address] 70224- 1908 March, Bipolar disorder, current episode mixed, moderate F31.62 and Generalized anxiety disorder F41.1 [place] [id number] [place] [address] 52535- 1634 March, [facility] [address], [place] [address]- 6964 March, [facility] [id number] [place] [address] 05732- 1194 Feb, [facility] [id number] [place] [address] 45018- 8394 Feb, [facility] [id number] [place] [address] 09001- 3679 Feb, Bipolar disorder, current episode mixed, moderate F31.62 and Generalized anxiety disorder F41.1 [facility] [id number] [place] [address] 01740- 8191 Jan, Abdominal pain R10.9 [facility] [id number] [place] [address] 21103- 9280 Jan, [facility] [id number] [place] [address] 18223- 1271 Dec, Dental examination Z01.20 [facility] [id number] [place] [address] 98330- 7957 Dec, Dental examination Z01.20 and Dental caries K02.9 [facility] [address] [place] [address] 80536- 6075 Dec, Bipolar disorder, current episode mixed, moderate F31.62 and Generalized anxiety disorder F41.1 [facility] [address] [place] [address] 27769- 7111 Dec, [facility] [id number] [place] [address] 76668- 9913 Nov, Bipolar disorder, current episode mixed, moderate F31.62 ; Generalized anxiety disorder F41.1 and Seizure-like activity R56.9 [facility] [address], [place] [address]- 6132 Oct, [facility] [id number] [place] [address] 99393- 7153 22 Oct, 2015 Bipolar disorder, current episode mixed, moderate F31.62 [place] [address] 08179- 0519 14 Oct, 2015 Well woman exam Z01.419 [...] Tobacco use Z72.0 and Hot flashes N95.1 [place] [address] 15470- 4445 09 Oct, 2015 Seizure-like activity R56.9 and Irregular periods N92.6 [place] [address] 13284- 4704 07 Oct, 2015 Bipolar disorder, current episode mixed, moderate F31.62 ; Generalized anxiety disorder F41.1 and Underweight R63.6 [place] [address] 29683- 9372 Oct, [place] [address] 76987- 9089 Oct, Generalized anxiety disorder F41.1 and Unspecified mood [ affective] disorder F39 [facility] [address] 35657 -6608 Oct, Back pain M54.9 and Anxiety F41.9 [place] [address] 12488- 0439 Oct, [facility] [address] 34127 -4298 Sep, Arm pain, left M79.602 [facility] [id number] [place] [address] 09928- 2837 Sep, [facility] [id number] [place] [address] [id number] Sep, Dental examination Z01.20 and Dental caries K02.9 [facility] [id number] [place] [address] 01620- 9743 Sep, Generalized anxiety disorder F41.1 and Unspecified episodic mood disorder F39 [facility] [id number] [place] [address] 60184- 6480 Sep, Bilateral low back pain without sciatica M54.5 and Seizure- like activity R56.9 [facility] [id number] [place] [address] 69902- 6675 Aug, [facility] [id number] [place] [address] 54927- 4652 Aug, [facility] [id number] [place] [address] 34886- 9984 Aug, [facility] [id number] [place] [address] 72672- 3838 Aug, Visual changes H53.9 and Bilateral low back pain without sciatica M54.5 [facility] [id number] [place] [address] 18817- 2061 Jul, [facility] [address] 35108- 0962 Jun, Bipolar I disorder, most recent episode (or current) mixed, moderate 296.62 ; Generalized anxiety disorder 300.02 and High risk medication use V58.69 [facility] [id number] [place] [address] 77442- 1264 Jun, [facility] [id number] [place] [address] 20870- 0603 May, [facility] [address] 37729- 1638 May, Bipolar I disorder, most recent episode (or current) mixed, moderate 296.62 and Generalized anxiety disorder 300.02 [facility] [address] [id number] May, Dental examination V72.2 [facility] [address], [place] [address]- 1606 March, Bipolar I disorder, most recent episode (or current) mixed, moderate 296.62 and Generalized anxiety disorder 300.02 [facility] [address] 2901 March, [facility] [id number] [place] [address] 94457- 4948 March, [facility] [id number] [place] [address] 330898- 1129 March, Underweight 783.22 ; Hand pain, right 729.5 and Reflux gastritis 535.40 [facility] [address], [place] [address]- 9891 Feb, [facility] [id number] [place] [address] 76242- 9921 Feb, [facility] [address], [place] [address]- 8146 18 Jan, 2015 [facility] [address], [place] [address]- 3563 18 Jan, 2015 [facility] [address], [place] [address]- 2270 16 Jan, 2015 [facility] [id number] [address]- 2079 16 Jan, 2015 [facility] [address], [place] [address]- 8875 13 Jan, 2015 [facility] [address], [place] [address]- 9721 Jan, [facility] [place] [facility] [address] [id number] [place] [address]- 8219 05 Jan, 2015 [facility] [place] [facility] [address] [id number] [place] [address]- 3632 05 Jan, 2014 [facility] [place] [facility] [address] [id number] [place] [address]- 0959 04 Jan, 2015 [facility] [place] [facility] [address] [id number] [place] [address]- 2651 04 Jan, 2014 [facility] [place] [facility] [address] [id number] [place] [address]- 5745 Jan, [facility] [place] [facility] [address] [id number] [place] [address]- 9176 Jan, [facility] [place] [facility] [address] [facility] [id number] [place] [address]- 4366 20 Dec, 2014 [facility] [place] [facility] [address] [facility] [id number] [place] [address]- 2511 20 Dec, 2014 [facility] [place] [facility] [address] [id number] [place] [address]- 5905 19 Dec, 2014 [facility] [place] [facility] [address] [facility] [id number] [place] [address]- 3342 19 Dec, 2014 [facility] [place] [facility] [address] [facility] [id number] [place] [address]- 4141 18 Dec, 2014 [facility] [place] [facility] [address] [id number] [address]- 9871 17 Dec, 2014 [facility] [place] [facility] [address] [id number] [place] [address]- 9371 17 Dec, 2014 [facility] [place] [facility] [address] [facility] [id number] [place] [address]- 7883 16 Dec, 2014 [facility] [place] [facility] [address] [facility] [id number] [place] [address]- 3655 16 Dec, 2014 [facility] [place] [facility] [address] [id number] [place] [address]- 7935 Dec, 2014 [facility] [place] [facility] [address] [id number] [place] [address]- 1286 Dec, 2014 [facility] [place] [facility] [address] [id number] [place] [address]- 7376 Dec, 2014 [facility] [place] [facility] [address] [id number] [place] [address]- 0567 Dec, 2014 [facility] [place] [facility] [address] [id number] [place] [address]- 7074 Dec, 2014 [facility] [place] [facility] [address] [id number] [place] [address]- 3625 Dec, 2014 [facility] [place] [facility] [address] [facility] [id number] [place] [address]- 9723 Dec, 2014 [facility] [place] [facility] [address] [facility] [id number] [place] [address] Dec, 2014 [facility] [place] [facility] [address] [facility] [id number] [place] [address] Dec, 2014 [facility] [place] [facility] [address] [facility] [id number] [place] [address] Dec, [facility] [place] [facility] [address] [facility] [id number], [place] [address] Nov, [facility] [place] [facility] [address] [facility] [id number], [place] [address] Nov, [facility] [place] [facility] [address] [id number], [place] [address] Nov, [facility] [place] [facility] [address] [facility] [id number], [place] [address] Nov, [facility] [place] [facility] [address] [facility] [id number], [place] [address] Nov, [facility] [place] [facility] [address] [facility] [id number], [place] [address] Nov, [facility] [place] [facility] [address] [id number] [place] [id number] Nov, [facility] [place] [facility] [address] [id number] [place] [address] Nov, [facility] [place] [facility] [address] [id number] [place] [address] Nov, [facility] [place] [facility] [address] [id number][place] [id number] Nov, [facility] [place] [facility] [address] [id number] [place] [address] Nov, [facility] [place] [facility] [address] [id number] [place] [address] Nov, [facility] [place] [facility] [address] [id number] [place] [address] Oct, [facility] [place] [facility] [address] [id number] [place] [address] Oct, [facility] [place] [facility] [address] [id number] [place] [address] Oct, [facility] [place] [facility] [address] [id number] [place] [address] Oct, [facility] [place] [facility] [address] [id number] [place] [address] Oct, [facility] [place] [facility] [address] [id number] [place] [address] Oct, [facility] [place] [facility] [address] [id number] [place] [address] Oct, [facility] [place] [facility] [address] [id number] [place] [address] Oct, [facility] [place] [facility] [address] [id number] [place] [address] 17 Oct, 2014 [facility] [place] [facility] [address] [id number] [place] [address] Oct, [facility] [place] [facility] [address] [id number] [place] [address] 8590 Oct, [facility] [place] [facility] [address] [id number] [place] [address] 2644 Oct, [facility] [place] [facility] [address] [id number] [place] [address] 7677 Sep, [facility] [place] [facility] [address] [id number] [place] [address] 96[address] Sep, [facility] [place] [facility] [address] [id number] [place] [address]- 8110 Sep, [facility] [place] [facility] [address] [id number] [place] [address]- 2876 Sep, [facility] [place] [facility] [address] [id number] [place] [address] 1351 Sep, [facility] [place] [facility] [address] [id number] [place] [address]- 0289 Sep, [facility] [place] [facility] [address] [id number] [place] [address] 0508 Sep, [facility] [place] [facility] [address] [facility] [id number] [place] [address]- 0695 Sep, [facility] [place] [facility] [address] [id number] [place] [address]- 9128 Aug, [facility] [place] [facility] [address] [id number] [place] [address]- 8428 Aug, [facility] [place] [facility] [address] [id number] [place] [address]- 3424 Aug, [facility] [place] [facility] [address] [id number] [place] [address]- 8090 Aug, [facility] [place] [facility] [address] [id number] [place] [address]- 1262 Aug, [facility] [place] [facility] [address] [id number] [place] [address]- 2109 Aug, [facility] [place] [facility] [address] [id number] [place] [address]- 7666 Aug, [facility] [place] [facility] [address] [id number] [place] [address]- 9207 Aug, [facility] [place] [facility] [address] [id number] [place] [address]- 2246 Aug, [facility] [place] [facility] [address] [id number] [place] [address] 1966 Aug, [facility] [place] [facility] [address] [id number] [place] [address]- 8302 Aug, [facility] [place] [facility] [address] [id number] [place] [address]- 2604 Aug, [facility] [place] [facility] [address] [id number] [place] [address]- 0222 Aug, [facility] [place] [facility] [address] [id number] [place] [address]- 4805 Jul, [facility] [place] [facility] [address] [id number] [place] [address]- 4252 Jul, [facility] [place] [facility] [address] [id number] [place] [address] 4021 Jul, [facility] [place] [facility] [address] [id number], [place] [address]- [address] Jul, [facility] [place] [facility] [address] [id number] [place] [address]- 9765 Jun, [facility] [place] [facility] [address] [id number] [place] [address]- 3028 Jun, [facility] [place] [facility] [address] [id number], [place] [address] 4066 Jun, [facility] [place] [facility] [address] [id number], [place] [address]- 0686 Jun, [facility] [place] [facility] [address] [id number] [place] [address]- 0194 Jun, [facility] [place] [facility] [address] [id number] [place] [address]- 7221 Jun, [facility] [place] [facility] [address] [id number] [place] [address]- 0965 May, [facility] [place] [facility] [address] [id number] [place] [address]- 5920 May, [facility] [place] [facility] [address] [id number] [place] [address]- 8972 May, [facility] [place] [facility] [address] [id number] [place] [address]- 4981 May, [facility] [place] [facility] [address] [id number] [place] [address]- 9089 Apr, [facility] [place] [facility] [address] [id number] [place] [address]- 2691 Apr, [facility] [place] [facility] [address] [id number] [place] [address]- 8579 March, [facility] [place] [facility] [address] [id number] [place] [address]- 3707 March, [facility] [place] [facility] [address] [id number] [place] [address]- 7534 March, [facility] [place] [facility] [address] [id number] [place] [address]- 7407 March, [facility] [place] [facility] [address] [id number] [place] [address]- 6548 March, [facility] [place] [facility] [address] [id number] [place] [address]- 5612 March, [facility] [place] [facility] [address] [id number] [place] [address]- 9217 Feb, [facility] [place] [facility] [address] [id number] [place] [address]- 4763 Feb, [facility] [place] [facility] [address] [id number] [place] [address]- 7503 Dec, [facility] [place] [facility] [address] [id number] [place] [address]- 2692 Dec, [facility] [place] [facility] [address] [id number] [place] [address]- 1711 Nov, [facility] [place] [facility] [address] [id number] [place] [address]- 4325 Nov, [facility] [place] [facility] [address] [id number] [place] [address]- 0885 Sep, [facility] [place] [facility] [address] [id number] [place] [address]- 7219 Sep, [facility] [place] [facility] [address] [id number] [place] [address]- 6251 Sep, [facility] [place] [facility] [address] [id number] [place] [address]- 1632 Sep, [facility] [place] [facility] [address] [id number] [place] [address]- 8450 Sep, [facility] [place] [facility] [address] [id number] [place] [address]- 8355 Sep, [facility] [place] [facility] [address] [id number] [place] [address]- 8380 Sep, [facility] [place] [facility] [address] [id number] [place] [address]- 2946 Aug, [facility] [place] [facility] [address] [id number] [place] [address]- 2555 Aug, [facility] [place] [facility] [address] [id number] [place] [address]- 3059 Aug, [facility] [place] [facility] [address] [id number] [place] [address]- 9456 Aug, [facility] [place] [facility] [address] [id number] [place] [address]- 4944 Aug, [facility] [place] [facility] [address] [id number] [place] [address]- 2401 Aug, [facility] [place] [facility] [address] [id number] [place] [address]- 8911 Jul, [facility] [place] [facility] [address] [id number] [place] [address]- 2593 Jul, [facility] [place] [facility] [address] [id number] [place] [address]- 5114 16 Jul, 2013 [facility] [place] [facility] [address] [id number] [place] [address]- 7816 Jul, [facility] [place] [facility] [address] [id number] [place] [address]- 0970 Jun, [facility] [place] [facility] [address] [id number], [place] [address]- 6536 Jun, [facility] [place] [facility] [address] [id number] [place] [address]- 6726 Jun, [facility] [place] [facility] [address] [id number] [place] [address]- 7983 Jun, [facility] [place] [facility] [address] [id number], [place] [address]- 6421 Jun, [facility] [place] [facility] [address] [id number], [place] [address]- 6481 Jun, [facility] [place] [facility] [address] [id number] [place] [address]- 0887 Jun, [facility] [place] [facility] [address] [id number], [place] [address]- 0761 May, [facility] [place] [facility] [address] [id number] [place] [address]- 9928 May, [facility] [place] [facility] [address] [id number] [place] [address]- 8832 16 May, 2013 [facility] [place] [facility] [address] [id number] [place] [address]- 2586 15 May, 2013 [facility] [place] [facility] [address] [id number] [place] [address]- 2499 13 May, 2013 [facility] [place] [facility] [address] [id number] [place] [address]- 5895 05 May, 2013 [facility] [place] [facility] [address] [id number] [place] [address]- 2540 03 May, 2013 [facility] [place] [facility] [address] [id number] [place] [address]- 5430 28 Apr, 2013 [facility] [place] [facility] [address] [id number] [place] [address]- 7692 27 Apr, 2013 [facility] [place] [facility] [address] [id number] [place] [address]- 4679 27 Apr, 2013 [facility] [place] [facility] [address] [id number] [place] [address]- 1284 26 Apr, 2013 [facility] [place] [facility] [address] [id number] [place] [address]- 5339 20 Apr, 2013 [facility] [place] [facility] [address] [id number] [place] [address]- 7205 18 Apr, 2013 [facility] [place] [facility] [address] [id number] [place] [address]- 6931 18 Apr, 2013 [facility] [place] [facility] [address] [id number] [place] [address]- 8018 18 Apr, 2013 [facility] [place] [facility] [address] [id number] [place] [address]- 9070 17 Apr, 2013 [facility] [place] [facility] [address] [id number] [place] [address]- 5532 14 Apr, 2013 [facility] [place] [facility] [address] [id number] [place] [address]- 0793 14 Apr, 2013 [facility] [place] [facility] [address] [id number] [place] [address]- 8252 11 Apr, 2013 [facility] [address] [id number] [place] [address]- 8821 Apr, [facility] [address] [id number] [place] [address]- 4853 09 Apr, 2013 [facility] [address] [id number] [place] [address]- 3167 Apr, [facility] [address] [id number] [place] [address]- 2784 Apr, [facility] [address] [id number] [place] [address]- 1867 Apr, [facility] [address] [id number] [place] [address]- 6262 Apr, [facility] [address] [id number] [place] [address]- 2167 Apr, [facility] [address] [id number] [place] [address]- 2029 March, [facility] [address] [id number] [place] [address]- 1433 March, [facility] [address] [id number] [place] [address]- 8381 March, [facility] [address] [id number] [place] [address]- 9380 March, [facility] [address] [id number] [place] [address]- 1786 March, [facility] [place] [facility] [address] [id number] [place] [address]- 6709 March, [facility] [address] [id number] [place] [address]- 9885 March, [facility] [address] [id number] [place] [address]- 3233 12 Feb, 2013 [facility] [address] [id number] [place] [address]- 7937 03 Feb, 2013 [facility] [address] [id number] [place] [address]- 9053 27 Jan, 2013 [facility] [address] [id number] [place] [address]- 3008 18 Jan, 2013 [facility] [place] [facility] [address] [id number] [place] [address]- 0964 15 Jan, 2013 [facility] [address] [id number] [place] [address]- 9355 14 Jan, 2013 [facility] [place] [facility] [address] [id number] [place] [address]- 7993 13 Jan, 2013 [facility] [address] [id number] [place] [address]- 7601 12 Jan, 2013 [facility] [place] [facility] [address] [id number] [place] [address]- 6978 11 Jan, 2013 [facility] [address] [id number] [place] [address]- 2840 09 Jan, 2013 [facility] [place] [facility] [address] [id number] [place] [address]- 1225 08 Jan, 2013 [facility] [address] [id number] [place] [address]- 1719 07 Jan, 2013 [facility] [place] [facility] [address] [id number] [place] [address]- 0683 06 Jan, 2013 [facility] [place] [facility] [address] [id number] [place] [address]- 5790 17 Nov, 2012 [facility] [place] [facility] [address] [id number] [place] [address]- 4527 Oct, [facility] [place] [facility] [address] [id number] [place] [address]- 1560 Oct, [facility] [place] [facility] [address] [id number] [place] [address]- 2894 Oct, [facility] [place] [facility] [address] [id number] [place] [address]- 2273 Oct, [facility] [place] [facility] [address] [id number] [place] [address]- 1357 Sep, [facility] [place] [facility] [address] [id number] [place] [address]- 9083 Sep, [facility] [place] [facility] [address] [id number] [place] [address]- 5984 Sep, [facility] [place] [facility] [address] [id number] [place] [address]- 1757 Sep, [facility] [place] [facility] [address] [id number] [place] [address]- 3007 Sep, [facility] [place] [facility] [address] [id number] [place] [address]- 7804 Sep, [facility] [place] [facility] [address] [id number] [place] [address]- 0963 Sep, [facility] [place] [facility] [address] [id number] [place] [address]- 7892 Sep, [facility] [place] [facility] [address] [id number] [place] [address]- 2617 Sep, [facility] [place] [facility] [address] [id number] [place] [address]- 4722 Sep, [facility] [place] [facility] [address] [id number] [place] [address]- 1615 Sep, [facility] [place] [facility] [address] [id number] [place] [address]- 5265 Aug, [facility] [place] [facility] [address] [id number] [place] [address]- 2559 Aug, [facility] [place] [facility] [address] [id number] [place] [address]- 3789 Aug, [facility] [place] [facility] [address] [id number] [place] [address]- 9615 28 Jul, 2012 [facility] [place] [facility] [address] [id number] [place] [address]- 5206 25 Jul, 2012 [facility] [place] [facility] [address] [id number] [place] [address]- 9121 19 Jul, 2012 [facility] [place] [facility] [address] [id number] [place] [address]- 5913 17 Jul, 2012 [facility] [place] [facility] [address] [id number] [place] [address]- 8790 20 Jun, 2012 [facility] [place] [facility] [address] [id number] [place] [address]- 1294 16 Jun, 2012 [facility] [place] [facility] [address] [id number] [place] [address]- 1725 15 Jun, 2012 [facility] [place] [facility] [address] [id number] [place] [address]- 9068 15 Jun, 2012 [facility] [place] [facility] [address] [id number] [place] [address]- 4822 13 Jun, 2012 [facility] [place] [facility] [address] [id number] [place] [address]- 0446 March, [facility] [place] [facility] [address] [id number] [place] [address]- 9009 04 Feb, 2012 [facility] [place] [facility] [address] [id number] [place] [address]- 8741 28 Jan, 2012 [facility] [place] [facility] [address] [id number] [place] [address]- 1168 27 Jan, 2012 [facility] [place] [facility] [address] [id number] [place] [address]- 2113 22 Jan, 2012 [facility] [place] [facility] [address] [id number] [place] [address]- 3944 14 Jan, 2012 [facility] [place] [facility] [address] [id number] [place] [address]- 3131 14 Jan, 2012 [facility] [place] [facility] [address] [id number] [place] [address]- 3870 14 Jan, 2012 [facility] [place] [facility] [address] [id number] [place] [address]- 1696 28 Dec, 2011 [facility] [place] [facility] [address] [id number] [place] [address]- 8836 27 Dec, 2011 [facility] [place] [facility] [address] [id number] [place] [address]- 0839 23 Dec, 2011 [facility] [place] [facility] [address] [id number] [place] [address]- 2116 21 Dec, 2011 [facility] [place] [facility] [address] [id number] [place] [address]- 0516 20 Dec, 2011 [facility] [place] [facility] [address] [id number] [place] [address]- 3275 19 Dec, 2011 [facility] [place] [facility] [address] [id number] [place] [address]- 1812 17 Dec, 2011 [facility] [place] [facility] [address] [id number] [place] [address]- 7798 16 Dec, 2011 [facility] [place] [facility] [address] [facility] [id number] [place] [address]- 3547 31 Nov, 2011 [facility] [place] [facility] [address] [id number] [place] [address]- 3883 13 Oct, 2011 [facility] [place] [facility] [address] [id number] [place] [address] 2542 18 Sep, 2011 [facility] [place] [facility] [address] [id number] [place] [address]- 9076 18 Sep, 2011 [facility] [place] [facility] [address] [id number] [place] [address]- 5736 17 Sep, 2011 [facility] [place] [facility] [address] [id number] [place] 1666 Sep, [facility] [address] [facility] [id number] [place] [address]- 9786 Sep, [facility] [address] [facility] [id number], [place] [address]- 2546 Sep, [facility] [address] [facility] [id number], [place] [address]- 1457 Jan, [facility] [address] [facility] [id number], [place] [address]- 1466 Apr, IMMUNIZATIONS Vaccine Route Administration Date Status TWINRIX (HEP A/B) IM Intramuscular February 09, 2018 Administered SOCIAL HISTORY Never Assessed REASON FOR VISIT Immunization(s)--Della PLAN OF CARE VITAL SIGNS MEDICATIONS Unknown Medications RESULTS No Results PROCEDURES Procedure Date Ordered Result Body Site TWINRIX (HEP A/B) February 09, 2018 SINGLE IMMUNIZATION ADMIN February 09, 2018 INSTRUCTIONS MEDICATIONS ADMINISTERED No Known Medications [...]
--- OUTSIDE RECORDS SUMMARY | 2018-08-05 20:29 | XMS REPORT ---
Author Author NICOLA MANUEL [facility] Address [address] [place] [address] Care Team Providers Care [employer] Admissions Representative Name Role Phone MAR NICOLA Unavailable PROBLEMS Type Condition ICD9-CM Code ZST74-TO Code Onset Dates Condition Status SNOMED Code Problem Generalized anxiety disorder F41.1 Active 72381667 Problem Acute non intractable tension-type headache G44.209 Active 874012521 Problem Acute right-sided low back pain with right-sided sciatica M54.41 Active 373957865 Problem Post traumatic stress disorder F43.10 Active 31379051 Problem Bipolar disorder, current episode mixed, moderate F31.62 Active 163618668 Problem Endometriosis N80.9 Active 431521041 Problem Borderline personality disorder F60.3 Active [id number] ALLERGIES No Information ENCOUNTERS Encounter Location Date Diagnosis [facility] [id number] [place] [address] 84612- 4502 Jul, [facility] [id number] [place] [address] [id number] Jun, [facility] [id number] [place] [address] 50308- 6906 May, Palpitations R00.2 [facility] [id number] [place] [address] 47753- 5575 May, Palpitations R00.2 [facility] [id number] [place] [address] 91709- 5451 May, Palpitations R00.2 and Frequent bowel movements R19.4 [facility] [address] 47013- 7762 May, Bipolar disorder, current episode mixed, moderate F31.62 ; Post traumatic stress disorder F43.10 and Borderline personality disorder F60.3 [facility] [id number] [id number] 15 Apr, 2018 Dental examination Z01.20 [facility] [address] [address] 15 Apr, 2018 [facility] [id number] [place] [address] 43982- 1081 15 Apr, 2018 Dental examination Z01.20 [facility] [id number] [place] [address] 78547 -1194 15 Apr, 2018 Tooth pain K08.89 [facility] [id number] [place] [address] 26742- 6932 06 Apr, 2018 Bipolar disorder, current episode mixed, moderate F31.62 ; Post traumatic stress disorder F43.10 and Borderline personality disorder F60.3 [facility] [id number] [place] [address] 06549 -9571 18 Mar, 2018 Abdominal pain R10.9 ; UTI symptoms R39.9 and Other microscopic hematuria R31.29 [facility] [id number] [place] [address] 64525- 1496 March, [facility] [id number] [place] [address] 84433- 8610 March, Bipolar disorder, current episode mixed, moderate F31.62 ; Post traumatic stress disorder F43.10 and Borderline personality disorder F60.3 [place] [facility] [id number] [place] [address] 87775- 3580 30 Feb, 2018 Encounter for immunization Z23 [facility] [address] [place] [address] 31486- 4835 16 Feb, 2018 Bipolar disorder, current episode mixed, moderate F31.62 ; Post traumatic stress disorder F43.10 and Borderline personality disorder F60.3 [facility] [address] [place] [address] 30727- 7927 Feb, Bipolar disorder, current episode mixed, moderate F31.62 ; Post traumatic stress disorder F43.10 ; Borderline personality disorder F60.3 and 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 [facility] [address] 76530- 8407 Jan, Encounter for immunization Z23 [facility] [address] 15511- 8258 Jan, [facility] [address] 81023- 8640 Jan, Bipolar disorder, current episode mixed, moderate F31.62 [facility] [address] 13843 -7825 Jan, Lumbar back pain M54.5 [place] [address] 47403- 7462 Dec, Low back pain M54.5 [place] [address] 02750- 5794 Dec, Bipolar disorder, current episode mixed, moderate F31.62 [place] [address] 06240- 6947 Dec, Generalized anxiety disorder F41.1 and Bipolar disorder, current episode mixed, moderate F31.62 [facility] [id number] [place] [address] 55050 -7315 Nov, Acute non intractable tension-type headache G44.209 [facility] [address] 55470- 9818 Nov, Bipolar disorder, current episode mixed, moderate F31.62 ; Post traumatic stress disorder F43.10 and Borderline personality disorder F60.3 [place] [address] 78355- 3881 Nov, Bipolar disorder, current episode mixed, moderate F31.62 [facility] [address] 24886 -0277 Nov, Abdominal pain R10.9 ; History of PCOS Z87.42 ; History of endometriosis Z87.42 and Pelvic pain R10.2 [facility] [address] [id number]- 6533 Nov, [facility] [id number] [place] [address] Oct, History of PCOS Z87.42 ; History of endometriosis Z87.42 and Pain R52 [facility] [address] 506822- 8155 Oct, Bipolar disorder, current episode mixed, moderate F31.62 ; Post traumatic stress disorder F43.10 and Borderline personality disorder F60.3 [place] [address] 23330- 2400 Oct, Bipolar disorder, current episode mixed, moderate F31.62 [place] [address] 69357- 2704 Sep, Bipolar disorder, current episode mixed, moderate F31.62 ; Post traumatic stress disorder F43.10 ; Borderline personality disorder F60.3 and 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 [place] [address] 62360- 8005 Sep, Bipolar disorder, current episode mixed, moderate F31.62 [facility] [id number] [place] [address] 79067 -2331 Sep, Endometriosis N80.9 and Acute right-sided low back pain with right-sided sciatica M54.41 [place] [facility] [id number] [place] [address] 67266- 8986 Aug, [place] [address] 35760- 0566 Aug, Bipolar disorder, current episode mixed, moderate F31.62 ; Post traumatic stress disorder F43.10 and Borderline personality disorder F60.3 [place] [address] [place] [address]- 9793 11 Aug, 2017 Bipolar disorder, current episode mixed, moderate F31.62 ; Post traumatic stress disorder F43.10 and Borderline personality disorder F60.3 [facility] [id number] [place] [address] 87528- 8566 13 Jul, 2017 Bipolar disorder, current episode mixed, moderate F31.62 ; Post traumatic stress disorder F43.10 and Borderline personality disorder F60.3 [facility] [id number] [place] [address] 55722 -0612 11 Jul, 2017 Pharyngitis, unspecified etiology J02.9 and Streptococcal pharyngitis J02.0 [facility] [id number] [place] [address] 93216- 0720 16 Jun, 2017 Bipolar disorder, current episode mixed, moderate F31.62 ; Post traumatic stress disorder F43.10 and Borderline personality disorder F60.3 [place] [id number] [place] [address] 34501- 5632 May, [facility] [id number] [place] [address] 48287- 2447 May, [facility] [id number] [place] [address] 67954- 8970 May, Bipolar disorder, current episode mixed, moderate F31.62 and Generalized anxiety disorder F41.1 [place] [id number] [place] [address] 45097- 2425 March, Bipolar disorder, current episode mixed, moderate F31.62 and Generalized anxiety disorder F41.1 [facility] [id number] [place] [address] 07162- 9373 March, Pelvic pain R10.2 [facility] [id number] [place] [address] 81669- 2506 March, [facility] [id number] [place] [address] 22223- 3593 05 Feb, 2017 Bipolar disorder, current episode mixed, moderate F31.62 and Generalized anxiety disorder F41.1 [facility] [address] [place] [address] 8305 Jan, [facility] [id number] [place] [address] Jan, Bipolar disorder, current episode mixed, moderate F31.62 [facility] [id number] [place] [address] 2425 Jan, Bipolar disorder, current episode mixed, moderate F31.62 [facility] [id number] [place] [address] 84711- 3304 Jan, Bilateral low back pain without sciatica M54.5 [facility] [id number] [place] [address] [id number] Jan, Dental caries K02.9 and Dental examination Z01.20 [facility] [address] [id number] Jan, Encounter for dental examination and cleaning without abnormal findings Z01.20 [facility] [id number] [place] [address] 16084- 1858 Jan, Bipolar disorder, current episode mixed, moderate F31.62 and Generalized anxiety disorder F41.1 [facility] [id number] [place] [address] 95267- 2813 Dec, [facility] [id number] [place] [address] 34494- 7262 Dec, Bipolar disorder, current episode mixed, moderate F31.62 and Generalized anxiety disorder F41.1 [facility] [id number] [place] [address] 28858- 5579 Dec, Other fatigue R53.83 and Orthostatic hypotension I95.1 [facility] [id number] [place] [address] [id number] Nov, Dental examination Z01.20 [facility] [address] [place] [address] -1298 02 Nov, 2016 Bronchitis J40 [facility] [id number] [place] [address] 40334- 7154 14 Oct, 2016 Generalized anxiety disorder F41.1 [facility] [id number] [place] [address] 36225- 8961 14 Sep, 2016 Bipolar disorder, current episode mixed, moderate F31.62 and Generalized anxiety disorder F41.1 [facility] [id number] [place] [address] 05887- 9108 02 Sep, 2016 Bipolar disorder, current episode mixed, moderate F31.62 and Generalized anxiety disorder F41.1 [facility] [id number] [place] [address] 73752 -2061 08 Jul, 2016 Upper respiratory tract infection, unspecified type J06.9 [place] [id number] [place] [address] 44994- 6118 Jun, Bipolar disorder, current episode mixed, moderate F31.62 and Generalized anxiety disorder F41.1 [place] [id number] [place] [address] 58314- 3091 Apr, [place] [id number] [place] [address] 71760- 0409 Apr, Encounter for test, result positive Z32.01 [place] [id number] [place] [address] 96481- 2400 March, [facility] [id number] [place] [address] 74172- 3060 March, Bipolar disorder, current episode mixed, moderate F31.62 and Generalized anxiety disorder F41.1 [place] [id number] [place] [address] 42640- 3423 March, Bipolar disorder, current episode mixed, moderate F31.62 and Generalized anxiety disorder F41.1 [place] [id number] [place] [address] 04610- 3105 March, [facility] [address] [address]- 5572 March, [facility] [id number] [place] [address] 88858- 7832 Feb, [facility] [address] [address]- 4071 Feb, [facility] [id number] [place] [address] 49928- 5772 Feb, Bipolar disorder, current episode mixed, moderate F31.62 and Generalized anxiety disorder F41.1 [facility] [id number] [place] [address] 96955- 8472 Jan, Abdominal pain R10.9 [facility] [id number] [place] [address] 32515- 8099 Jan, [facility] [id number] [place] [address] 22154- 5298 29 Dec, 2015 Dental examination Z01.20 [facility] [address] [place] [address] 48856- 0294 22 Dec, 2015 Dental examination Z01.20 and Dental caries K02.9 [facility] [address] [place] [address] 70175- 9114 15 Dec, 2015 Bipolar disorder, current episode mixed, moderate F31.62 and Generalized anxiety disorder F41.1 [facility] [address] [place] [address] 51110- 5092 Dec, [facility] [address] [address]- 8584 Nov, Bipolar disorder, current episode mixed, moderate F31.62 ; Generalized anxiety disorder F41.1 and Seizure-like activity R56.9 [facility] [address] [address]- 9353 Oct, [facility] [address] 84120- 3835 Oct, Bipolar disorder, current episode mixed, moderate F31.62 [place] [address] 62974- 8451 14 Oct, 2015 Well woman exam Z01.419 [...] Tobacco use Z72.0 and Hot flashes N95.1 [place] [address] 69308- 2082 09 Oct, 2015 Seizure-like activity R56.9 and Irregular periods N92.6 [place] [address] 20211- 5970 07 Oct, 2015 Bipolar disorder, current episode mixed, moderate F31.62 ; Generalized anxiety disorder F41.1 and Underweight R63.6 [place] [address] 17876- 8612 Oct, [place] [address] 23805- 7739 Oct, Generalized anxiety disorder F41.1 and Unspecified mood [ affective] disorder F39 [facility] [address] 56366 -6462 Oct, Back pain M54.9 and Anxiety F41.9 [place] [address] 83848- 2996 Oct, [facility] [address] 08497 -7835 Sep, Arm pain, left M79.602 [place] [id number] [place] [address] 49728- 1740 Sep, [facility] [id number] [place] [address] [id number] Sep, Dental examination Z01.20 and Dental caries K02.9 [facility] [id number] [place] [address] 68742- 9172 Sep, Generalized anxiety disorder F41.1 and Unspecified episodic mood disorder F39 [facility] [address] 56757- 0731 Sep, Bilateral low back pain without sciatica M54.5 and Seizure- like activity R56.9 [facility] [id number] [place] [address] 02971- 6508 Aug, [facility] [address] 78694- 0498 Aug, [facility] [address] 18855- 2072 Aug, [facility] [id number] [place] [address] 82691- 0315 Aug, Visual changes H53.9 and Bilateral low back pain without sciatica M54.5 [facility] [id number] [place] [address] 97024- 6166 Jul, [facility] [id number] [place] [address] 86048- 0641 Jun, Bipolar I disorder, most recent episode (or current) mixed, moderate 296.62 ; Generalized anxiety disorder 300.02 and High risk medication use V58.69 [facility] [id number] [place] [address] 10132- 7086 Jun, [facility] [id number] [place] [address] 42791- 0929 May, [facility] [address] 65301- 7316 May, Bipolar I disorder, most recent episode (or current) mixed, moderate 296.62 and Generalized anxiety disorder 300.02 [facility] [address] [address] May, Dental examination V72.2 [facility] [address] [place] [address] 04495- 2443 March, Bipolar I disorder, most recent episode (or current) mixed, moderate 296.62 and Generalized anxiety disorder 300.02 [facility] [address] [place] [address] 409700- 0600 March, [facility] [id number] [place] [address] 73797- 8131 March, [facility] [id number] [place] [address] 99431- 5716 March, Underweight 783.22 ; Hand pain, right 729.5 and Reflux gastritis 535.40 [facility] [address] [place] [address] 99883- 5030 Feb, [facility] [id number] [place] [address] 80030- 0298 Feb, [facility] [id number] [place] [address] 97948- 6090 18 Jan, 2015 [facility] [id number] [place] [address] 54389- 6618 18 Jan, 2015 [facility] [address] [place] [address] 45619- 2260 16 Jan, 2015 [facility] [address] [place] [address] 02386- 6252 16 Jan, 2015 [facility] [id number] [address] 8623 Jan, [facility] [address] [place] [address] 085394- 8035 Jan, [facility] [place] [facility] [address] [id number] [place] [address]- 2609 05 Jan, 2014 [facility] [place] [facility] [address] [id number] [place] [address]- 3576 05 Jan, 2014 [facility] [place] [facility] [address] [id number] [place] [address]- 7720 04 Jan, 2014 [facility] [place] [facility] [address] [id number] [place] [address]- 3243 04 Jan, 2014 [facility] [place] [facility] [address] [id number] [place] [address]- 3412 Jan, 2014 [facility] [place] [facility] [address] [id number] [place] [address]- 0384 Jan, 2014 [facility] [place] [facility] [address] [facility] [id number] [place] [address]- 4729 Dec, 2014 [facility] [place] [facility] [address] [facility] [id number] [place] [address]- 2999 20 Dec, 2014 [facility] [place] [facility] [address] [facility] [id number] [place] [address]- 7750 Dec, 2014 [facility] [place] [facility] [address] [facility] [id number] [place] [address]- 7078 Dec, 2014 [facility] [place] [facility] [address] [facility] [id number] [place] [address]- 5284 18 Dec, 2014 [facility] [place] [facility] [address] [id number] [place] [address]- 6116 17 Dec, 2014 [facility] [place] [facility] [address] [id number] [place] [address]- 1775 17 Dec, 2014 [facility] [place] [facility] [address] [id number] [place] [address]- 3266 16 Dec, 2014 [facility] [place] [facility] [address] [facility] [id number] [place] [address]- 4097 16 Dec, 2014 [facility] [place] [facility] [address] [facility] [id number] [place] [address]- 0336 05 Dec, 2014 [facility] [place] [facility] [address] [id number] [place] [address]- 6906 Dec, 2014 [facility] [place] [facility] [address] [id number] [place] [address] 2546 Dec, 2014 [facility] [place] [facility] [address] [id number] [place] [address]- 0376 Dec, 2014 [facility] [place] [facility] [address] [id number] [place] [address]- 2544 Dec, 2014 [facility] [place] [facility] [address] [id number] [place] [address]- 9123 Dec, 2014 [facility] [place] [facility] [address] [facility] [id number] [place] [address]- 7318 Dec, 2014 [facility] [place] [facility] [address] [id number] [place] [address]- 2544 Dec, 2014 [facility] [place] [facility] [address] [id number] [place] [address]- 3876 Dec, 2014 [facility] [place] [facility] [address] [facility] [id number] [place] [address]- 2563 Dec, 2014 [facility] [place] [facility] [address] [facility] [id number] [place] [address]- 2058 Nov, [facility] [place] [facility] [address] [facility] [id number] [place] [address]- 2543 Nov, [facility] [place] [facility] [address] [id number] [place] [address] 2545 Nov, [facility] [place] [facility] [address] [id number] [place] [address] 2546 Nov, [facility] [place] [facility] [address] [facility] [id number] [place] [address]- 2542 Nov, [facility] [place] [facility] [address] [id number] [place] [address]- 1648 Nov, [facility] [place] [facility] [address] [id number] [place] [id number] Nov, [facility] [place] [facility] [address] [id number] [place] [address]- 9397 Nov, [facility] [place] [facility] [address] [id number] [place] [address]- 7362 Nov, [facility] [place] [facility] [address] [id number] [place] [id number] Nov, [facility] [place] [facility] [address] [id number] [place] [address]- 3000 Nov, [facility] [place] [facility] [address] [id number] [place] [address]- 4734 Nov, [facility] [place] [facility] [address] [id number] [place] 6538 Oct, [facility] [place] [facility] [address] [id number] [place] [address]- 9738 Oct, [facility] [place] [facility] [address] [id number] [place] [address]- 2931 Oct, [facility] [place] [facility] [address] [id number] [place] [address]- 6213 30 Oct, 2014 [facility] [place] [facility] [address] [id number] [place] [address]- 9340 Oct, [facility] [place] [facility] [address] [id number] [address]- 3494 29 Oct, 2014 [facility] [place] [facility] [address] [id number] [place] 9368 Oct, [facility] [place] [facility] [address] [id number] [place] [address]- 3177 Oct, [facility] [place] [facility] [address] [id number] [place] [address] 17 Oct, 2014 [facility] [place] [facility] [address] [id number] [place] [address] Oct, [facility] [place] [facility] [address] [id number] [place] [address] Oct, [facility] [place] [facility] [address] [id number] [place] [address] Oct, [facility] [place] [facility] [address] [id number] [place] [address] Sep, [facility] [place] [facility] [address] [id number] [place] [address] Sep, [facility] [place] [facility] [address] [id number] [place] [address] Sep, [facility] [place] [facility] [address] [id number] [place] [address] Sep, [facility] [place] [facility] [address] [id number] [place] [address] Sep, [facility] [place] [facility] [address] [id number] [place] [address] Sep, [facility] [place] [facility] [address] [id number] [place] [address] Sep, [facility] [place] [facility] [address] [id number] [place] [address] Sep, [facility] [place] [facility] [address] [id number] [place] [address] Aug, [facility] [place] [facility] [address] [id number] [address] Aug, [facility] [place] [facility] [address] [id number] [place] [address] Aug, [facility] [place] [facility] [address] [id number] [place] [address] Aug, [facility] [place] [facility] [address] [id number] [address] Aug, [facility] [place] [facility] [address] [address] [id number] [place] [address] Aug, [facility] [place] [facility] [address] [id number] [place] [address]184 Aug, [facility] [place] [facility] [address] [id number] [place] [address] 6598 Aug, [facility] [place] [facility] [address] [id number] [place] [address] 0137 Aug, [facility] [place] [facility] [address] [id number] [place] [address] 6111 Aug, [facility] [place] [facility] [address] [id number] [place] [address] 7368 Aug, [facility] [place] [facility] [address] [id number] [place] [address] 1036 Aug, [facility] [place] [facility] [address] [id number] [place] [address] 2984 Aug, [facility] [place] [facility] [address] [id number] [place] [address] 8068 Jul, [facility] [place] [facility] [address] [id number] [place] [address] 9362 Jul, [facility] [place] [facility] [address] [id number] [place] [address] 9598 Jul, [facility] [place] [facility] [address] [id number] [place] [address] 5151 Jul, [facility] [place] [facility] [address] [id number] [place] [address] 6469 Jun, [facility] [place] [facility] [address] [id number] [place] [address] 7706 Jun, [facility] [place] [facility] [address] [id number] [place] [address] 4393 Jun, [facility] [place] [facility] [address] [id number] [place] [address] 6257 Jun, [facility] [place] [facility] [address] [id number] [place] [address]- 9561 Jun, [facility] [place] [facility] [address] [id number] [place] [address]- 0987 Jun, [facility] [place] [facility] [address] [id number] [place] [address] 3860 May, [facility] [place] [facility] [address] [id number] [place] [address]- 8578 May, [facility] [place] [facility] [address] [id number] [place] [address] 5331 May, [facility] [place] [facility] [address] [id number] [place] [address]- 5711 May, [facility] [place] [facility] [address] [id number] [place] [address]- 3035 Apr, [facility] [place] [facility] [address] [id number] [place] [address] 6840 Apr, [facility] [place] [facility] [address] [id number] [place] [address] 1103 March, [facility] [place] [facility] [address] [id number] [place] [address] 3215 March, [facility] [place] [facility] [address] [id number] [place] [address]- 9468 March, [facility] [place] [facility] [address] [id number] [place] [address] 6011 March, [facility] [place] [facility] [address] [id number] [place] [address] 6121 March, [facility] [place] [facility] [address] [id number] [place] [address] 4533 March, [facility] [place] [facility] [address] [id number] [place] [address] 7613 Feb, [facility] [place] [facility] [address] [id number] [place] [address] 7540 Feb, [facility] [address] [id number] [place] [address] Dec, [facility] [place] [facility] [address] [id number] [place] [address] 0451 Dec, [facility] [address] [id number] [place] [address] 6319 Nov, [facility] [place] [facility] [address] [id number] [place] [address] 1820 Nov, [facility] [address] [id number] [place] [address] 6401 Sep, [facility] [place] [facility] [address] [id number] [place] [address] 3136 Sep, [facility] [place] [facility] [address] [id number] [place] [address]- 7259 Sep, [facility] [address] [id number] [place] [address]- 9905 Sep, [facility] [place] [facility] [address] [id number] [place] [address] 4285 Sep, [facility] [address] [facility] [id number] [place] [address]- 9198 Sep, [facility] [place] [facility] [address] [id number] [place] [address]- 7956 Sep, [facility] [place] [facility] [address] [id number] [place] [address]- 9505 Aug, [facility] [place] [facility] [address] [id number] [place] [address] Aug, [facility] [place] [facility] [address] [id number] [place] [address]- 6965 Aug, [facility] [place] [facility] [address] [id number] [place] [address]- 4516 Aug, [facility] [place] [facility] [address] [id number] [place] [address]- 5631 Aug, [facility] [place] [facility] [address] [id number] [place] [address]- 7393 Aug, [facility] [place] [facility] [address] [id number] [place] [address]- 8031 Jul, [facility] [place] [facility] [address] [id number] [place] [address]- 4058 Jul, [facility] [place] [facility] [address] [id number] [place] [address]- 2449 16 Jul, 2013 [facility] [place] [facility] [address] [id number] [place] [address]- 3049 Jul, [facility] [place] [facility] [address] [id number] [place] [address]- 9247 Jun, [facility] [place] [facility] [address] [id number] [place] [address]- 9641 Jun, [facility] [place] [facility] [address] [id number] [place] [address]- 2813 Jun, [facility] [place] [facility] [address] [id number] [place] [address]- 2058 Jun, [facility] [place] [facility] [address] [id number] [place] [address]- 5630 Jun, [facility] [place] [facility] [address] [id number] [address] 4839 Jun, [facility] [place] [facility] [address] [id number] [place] [address]- 6902 Jun, [facility] [place] [facility] [address] [id number] [place] [address]- 3363 May, [facility] [place] [facility] [address] [id number] [place] [address]- 5875 May, [facility] [place] [facility] [address] [id number] [place] [address]- 2337 16 May, 2013 [facility] [place] [facility] [address] [id number] [place] [address]- 5446 15 May, 2013 [facility] [place] [facility] [address] [id number] [place] [address]- 1223 13 May, 2013 [facility] [place] [facility] [address] [id number] [place] [address]- 9684 05 May, 2013 [facility] [place] [facility] [address] [id number] [place] [address]- 7102 03 May, 2013 [facility] [place] [facility] [address] [id number] [place] [address]- 8738 28 Apr, 2013 [facility] [place] [facility] [address] [id number] [place] [address]- 6084 27 Apr, 2013 [facility] [place] [facility] [address] [id number] [place] [address]- 9104 27 Apr, 2013 [facility] [place] [facility] [address] [id number] [place] [address]- 8981 26 Apr, 2013 [facility] [place] [facility] [address] [id number] [place] [address]- 0299 20 Apr, 2013 [facility] [place] [facility] [address] [facility] [id number] [place] [address]- 9841 18 Apr, 2013 [facility] [place] [facility] [address] [id number] [place] [address]- 6741 18 Apr, 2013 [facility] [place] [facility] [address] [id number] [place] [address]- 3421 18 Apr, 2013 [facility] [place] [facility] [address] [id number] [place] [address]- 6254 17 Apr, 2013 [facility] [place] [facility] [address] [id number] [place] [address]- 5709 14 Apr, 2013 [facility] [place] [facility] [address] [id number] [place] [address]- 6362 14 Apr, 2013 [facility] [place] [facility] [address] [id number] [place] [address]- 4600 11 Apr, 2013 [facility] [address] [id number] [place] [address]- 5627 Apr, [facility] [place] [facility] [address] [id number] [place] [address]- 0018 Apr, [facility] [place] [facility] [address] [id number] [place] [address]- 2478 Apr, [facility] [place] [facility] [address] [id number] [place] [address]- 6977 Apr, [facility] [place] [facility] [address] [id number] [place] [address]- 2584 Apr, [facility] [place] [facility] [address] [id number] [place] [address]- 5183 Apr, [facility] [place] [facility] [address] [id number] [place] [address]- 2233 Apr, [facility] [place] [facility] [address] [id number] [place] [address]- 8726 March, [facility] [place] [facility] [address] [id number] [place] [address]- 1302 March, [facility] [place] [facility] [address] [id number] [place] [address]- 3181 March, [facility] [place] [facility] [address] [id number] [place] [address]- 7201 March, [facility] [place] [facility] [address] [id number] [place] [address]- 2048 March, [facility] [place] [facility] [address] [id number] [place] [address]- 5494 March, [facility] [place] [facility] [address] [id number] [place] [address]- 2996 March, [facility] [place] [facility] [address] [id number] [place] [address]- 8857 12 Feb, 2013 [facility] [address] [id number] [place] [address]- 2879 03 Feb, 2013 [facility] [place] [facility] [address] [id number] [place] [address]- 3537 27 Jan, 2013 [facility] [place] [facility] [address] [id number] [place] [address]- 9350 18 Jan, 2013 [facility] [place] [facility] [address] [id number] [place] [address]- 3589 15 Jan, 2013 [facility] [place] [facility] [address] [id number] [place] [address]- 3645 14 Jan, 2013 [facility] [place] [facility] [address] [id number] [place] [address]- 2296 13 Jan, 2013 [facility] [place] [facility] [address] [id number] [place] [address]- 2291 12 Jan, 2013 [facility] [place] [facility] [address] [id number] [place] [address]- 5043 11 Jan, 2013 [facility] [place] [facility] [address] [id number] [place] [address]- 6172 09 Jan, 2013 [facility] [place] [facility] [address] [id number] [place] [address]- 2311 08 Jan, 2013 [facility] [place] [facility] [address] [id number] [place] [address]- 6943 07 Jan, 2013 [facility] [place] [facility] [address] [id number] [place] [address]- 3601 06 Jan, 2013 [facility] [place] [facility] [address] [id number] [place] [address]- 0366 17 Nov, 2012 [facility] [place] [facility] [address] [id number] [place] [address]- 4617 Oct, [facility] [place] [facility] [address] [id number] [place] [address]- 0614 Oct, [facility] [place] [facility] [address] [id number] [place] [address]- 7464 Oct, [facility] [place] [facility] [address] [id number] [place] [address]- 2712 Oct, [facility] [place] [facility] [address] [id number] [place] [address]- 1348 Sep, [facility] [place] [facility] [address] [id number] [place] [address]- 6759 Sep, [facility] [place] [facility] [address] [id number] [place] [address]- 7348 Sep, [facility] [place] [facility] [address] [id number] [place] [address]- 3819 Sep, [facility] [place] [facility] [address] [id number] [place] [address]- 3321 Sep, [facility] [place] [facility] [address] [id number] [place] [address]- 8896 Sep, [facility] [place] [facility] [address] [id number] [place] [address]- 3131 Sep, [facility] [place] [facility] [address] [id number] [place] [address]- 2158 Sep, [facility] [place] [facility] [address] [facility] [id number] [place] [address]- 7465 Sep, [facility] [place] [facility] [address] [id number] [place] [address]- 2773 Sep, [facility] [place] [facility] [address] [id number] [place] [address]- 0204 Sep, [facility] [place] [facility] [address] [id number] [place] [address]- 8307 Aug, [facility] [place] [facility] [address] [id number] [place] [address]- 0403 Aug, [facility] [place] [facility] [address] [id number] [address]- 0331 Aug, [facility] [place] [facility] [address] [id number] [place] [address]- 0982 28 Jul, 2012 [facility] [place] [facility] [address] [id number] [place] [address]- 2456 25 Jul, 2012 [facility] [place] [facility] [address] [id number] [place] [address]- 4346 19 Jul, 2012 [facility] [place] [facility] [address] [id number] [place] [address]- 8276 17 Jul, 2012 [facility] [place] [facility] [address] [id number] [place] [address]- 7701 20 Jun, 2012 [facility] [place] [facility] [address] [id number] [place] [address]- 0226 16 Jun, 2012 [facility] [place] [facility] [address] [id number] [place] [address]- 0525 15 Jun, 2012 [facility] [place] [facility] [address] [id number] [place] [address]- 1070 15 Jun, 2012 [facility] [place] [facility] [address] [id number] [place] [address]- 7728 13 Jun, 2012 [facility] [place] [facility] [address] [id number] [place] [address]- 3069 March, [facility] [place] [facility] [address] [id number] [place] [address]- 5235 04 Feb, 2012 [facility] [place] [facility] [address] [id number] [place] [address]- 4747 28 Jan, 2012 [facility] [place] [facility] [address] [id number] [place] [address]- 3569 27 Jan, 2012 [facility] [place] [facility] [address] [id number] [place] [address]- 4793 22 Jan, 2012 [facility] [place] [facility] [address] [id number] [place] [address]- 3510 14 Jan, 2012 [facility] [place] [facility] [address] [id number] [place] [address]- 9636 14 Jan, 2012 [facility] [address] [id number] [place] [address]- 2339 14 Jan, 2012 [facility] [place] [facility] [address] [id number] [place] [address]- 8276 28 Dec, 2011 [facility] [place] [facility] [address] [facility] [id number] [place] [address]- 5566 27 Dec, 2011 [facility] [place] [facility] [address] [id number] [place] [address]- 2402 23 Dec, 2011 [facility] [place] [facility] [address] [id number] [place] [address]- 0951 21 Dec, 2011 [facility] [place] [facility] [address] [id number] [place] [address]- 8345 20 Dec, 2011 [facility] [address] [facility] [id number] [place] [address]- 3697 19 Dec, 2011 [facility] [place] [facility] [address] [id number] [place] [address]- 3324 17 Dec, 2011 [facility] [place] [facility] [address] [facility] [id number] [place] [address]- 9267 16 Dec, 2011 [facility] [place] [facility] [address] [facility] [id number] [place] [address]- 7042 31 Nov, 2011 [facility] [place] [facility] [address] [facility] [id number] [place] [address]- 4462 13 Oct, 2011 [facility] [place] [facility] [address] [id number] [place] [address]- 9473 18 Sep, 2011 [facility] [place] [facility] [address] [id number] [place] [address]- 1042 18 Sep, 2011 [facility] [place] [facility] [address] [facility] [id number] [place] 17 Sep, 2011 [facility] [place] [facility] [address] [facility] [id number] [place] 2381 17 Sep, 2011 [facility] [address] [facility] [id number] [place] [address]- 9905 Sep, [facility] [address] [facility] [id number] [place] [address]- 7693 Sep, [facility] [address] [facility] [id number] [place] Jan, [facility] [address] [facility] [id number] [place] [address] Apr, IMMUNIZATIONS No Known Immunizations SOCIAL HISTORY [...] History Left ovary removed 12/2016 Hospitalization History [facility] Admission x4 2009 most recent admission Hospitalization History [facility]; overdose 2010 Hospitalization History child 11/29/2016
--- OUTSIDE RECORDS SUMMARY | 2018-08-05 20:30 | XMS REPORT ---
Author Author KAREN COLIN [facility] Address [address] [place] [address] Care Team Providers Care Network Desktop Support Specialist Name Role Phone KAREN COLIN Unavailable PROBLEMS Type Condition ICD9-CM Code VCE43-BM Code Onset Dates Condition Status SNOMED Code Problem Generalized anxiety disorder F41.1 Active 51139821 Problem Acute non intractable tension-type headache G44.209 Active 557663501 Problem Acute right-sided low back pain with right-sided sciatica M54.41 Active 254902881 Problem Post traumatic stress disorder F43.10 Active 14497271 Problem Bipolar disorder, current episode mixed, moderate F31.62 Active 052104620 Problem Endometriosis N80.9 Active 591444208 Problem Borderline personality disorder F60.3 Active 92627499 ALLERGIES Substance Reaction Event Type Date Status Thioridazine HCl tachycardia Drug Allergy Jan, Active Pristiq Unknown Drug Allergy Jan, Active Penicillin V Potassium rash Drug Allergy Jan, Active Diclofenac Sodium nausea Drug Allergy Jan, Active Depakote fatigue Drug Allergy Jan, Active ENCOUNTERS Encounter Location Date Diagnosis [facility] [id number] [place] [address] 33311- 4940 Jul, [facility] [id number] [place] [address] [id number] Jun, [facility] [id number] [place] [address] 53020- 4233 May, Palpitations R00.2 [facility] [id number] [place] [address] 31269- 9714 May, Palpitations R00.2 [facility] [id number] [place] [address] 28963- 3594 May, Palpitations R00.2 and Frequent bowel movements R19.4 [facility] [id number] [place] [address] 48382- 1618 05 May, 2018 Bipolar disorder, current episode mixed, moderate F31.62 ; Post traumatic stress disorder F43.10 and Borderline personality disorder F60.3 [facility] [address] [id number] [id number] 15 Apr, 2018 Dental examination Z01.[address] [facility] [id number] [place] [address] 25705 -5302 15 Apr, 2018 [facility] [id number] [place] [address] 63088 -3209 15 Apr, 2018 Tooth pain K08.89 [facility] [id number] [place] [address] 73216- 1573 15 Apr, 2018 Dental examination Z01.20 [facility] [id number] [place] [address] 67803- 1443 06 Apr, 2018 Bipolar disorder, current episode mixed, moderate F31.62 ; Post traumatic stress disorder F43.10 and Borderline personality disorder F60.3 [facility] [id number] [place] [address] 34998 -5641 March, Abdominal pain R10.9 ; UTI symptoms R39.9 and Other microscopic hematuria R31.29 [facility] [id number] [place] [address] 50932- 6368 March, [facility] [id number] [place] [address] 54737- 8321 March, Bipolar disorder, current episode mixed, moderate F31.62 ; Post traumatic stress disorder F43.10 and Borderline personality disorder F60.3 [place] [id number] [place] [address] 07949- 0219 Feb, Encounter for immunization Z23 [facility] [id number] [place] [address] 01700- 8403 16 Feb, 2018 Bipolar disorder, current episode mixed, moderate F31.62 ; Post traumatic stress disorder F43.10 and Borderline personality disorder F60.3 [place] [id number] [place] [address] Feb, Bipolar disorder, current episode mixed, moderate F31.62 ; Post traumatic stress disorder F43.10 ; Borderline personality disorder F60.3 and 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 [place] [address] 862687- 449 Jan, Encounter for immunization Z23 [place] [address] 646358- 2419 Jan, [place] [address] 862683- 1891 Jan, Bipolar disorder, current episode mixed, moderate F31.62 [facility] [address] 98197 -4781 Jan, Lumbar back pain M54.5 [place] [address] 27052- 3581 Dec, Low back pain M54.5 [place] [address] 85253- 017 Dec, Bipolar disorder, current episode mixed, moderate F31.62 [place] [id number] [place] [address] 34468- 3829 Dec, Generalized anxiety disorder F41.1 and Bipolar disorder, current episode mixed, moderate F31.62 [facility] [id number] [place] [address] 00042 -5436 Nov, Acute non intractable tension-type headache G44.209 [place] [address] 862681- 0252 Nov, Bipolar disorder, current episode mixed, moderate F31.62 ; Post traumatic stress disorder F43.10 and Borderline personality disorder F60.3 [place] [address] [place] [address] 3[address] Nov, Bipolar disorder, current episode mixed, moderate F31.62 [facility] [address] 56610 -0228 Nov, Abdominal pain R10.9 ; History of PCOS Z87.42 ; History of endometriosis Z87.42 and Pelvic pain R10.2 [place] [address] 38079- 2691 Nov, [facility] [address] 24998 -8440 Oct, History of PCOS Z87.42 ; History of endometriosis Z87.42 and Pain R52 [place] [id number] [place] [address] 14593- 1758 Oct, Bipolar disorder, current episode mixed, moderate F31.62 ; Post traumatic stress disorder F43.10 and Borderline personality disorder F60.3 [place] [id number] [place] [address] 38422- 3767 Oct, Bipolar disorder, current episode mixed, moderate F31.62 [place] [id number] [place] [address] 00299- 1991 Sep, Bipolar disorder, current episode mixed, moderate F31.62 ; Post traumatic stress disorder F43.10 ; Borderline personality disorder F60.3 and Other [employer] (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 Z79.899 [place] [id number] [place] [address] 19998- 3016 Sep, Bipolar disorder, current episode mixed, moderate F31.62 [facility] [id number] [place] [address] 46299 -6905 Sep, Endometriosis N80.9 and Acute right-sided low back pain with right-sided sciatica M54.41 [place] [id number] [place] [address] 36771- 3775 Aug, [place] [id number] [place] [address] 8847 27 Aug, 2017 Bipolar disorder, current episode mixed, moderate F31.62 ; Post traumatic stress disorder F43.10 and Borderline personality disorder F60.3 [facility] [id number] [place] [address] 59941- 9554 11 Aug, 2017 Bipolar disorder, current episode mixed, moderate F31.62 ; Post traumatic stress disorder F43.10 and Borderline personality disorder F60.3 [facility] [address] 28342- 5092 13 Jul, 2017 Bipolar disorder, current episode mixed, moderate F31.62 ; Post traumatic stress disorder F43.10 and Borderline personality disorder F60.3 [facility] [id number] [place] [address] 67230 -7877 11 Jul, 2017 Pharyngitis, unspecified etiology J02.9 and Streptococcal pharyngitis J02.0 [place] [address] 39016- 0268 16 Jun, 2017 Bipolar disorder, current episode mixed, moderate F31.62 ; Post traumatic stress disorder F43.10 and Borderline personality disorder F60.3 [place] [id number] [place] [address] 17851- 4894 May, [place] [id number] [place] [address] 43041- 0722 May, [facility] [address] 83702- 7130 May, Bipolar disorder, current episode mixed, moderate F31.62 and Generalized anxiety disorder F41.1 [place] [address] 38059- 0434 March, Bipolar disorder, current episode mixed, moderate F31.62 and Generalized anxiety disorder F41.1 [place] [id number] [place] [address] 23022- 8021 04 Mar, 2017 Pelvic pain R10.2 [place] [id number] [place] [address] 68643- 4716 March, [facility] [id number] [place] [address] 2037 Feb, Bipolar disorder, current episode mixed, moderate F31.62 and Generalized anxiety disorder F41.1 [facility] [id number] [place] [address] 24888- 1509 Jan, [facility] [address] 862684- 7051 Jan, Bipolar disorder, current episode mixed, moderate F31.62 [place] [address] 862680- 5784 Jan, Bipolar disorder, current episode mixed, moderate F31.62 [facility] [id number] [place] [address] 54768- 2403 Jan, Bilateral low back pain without sciatica M54.5 [facility] [id number] [place] [address] [id number] Jan, Dental caries K02.9 and Dental examination Z01.20 [facility] [address] [id number] Jan, Encounter for dental examination and cleaning without abnormal findings Z01.20 [facility] [id number] [place] [address] 29285- 7174 Jan, Bipolar disorder, current episode mixed, moderate F31.62 and Generalized anxiety disorder F41.1 [facility] [id number] [place] [address] 75384- 6112 Dec, [facility] [id number] [place] [address] 4641 Dec, Bipolar disorder, current episode mixed, moderate F31.62 and Generalized anxiety disorder F41.1 [facility] [id number] [place] [address] 24268- 6332 Dec, Other fatigue R53.83 and Orthostatic hypotension I95.1 [facility] [address] [id number] Nov, Dental examination Z01.20 [facility] [id number] [place] [address] 25128 -7153 Nov, Bronchitis J40 [place] [id number] [place] [address] 44330- 2210 Oct, Generalized anxiety disorder F41.1 [facility] [id number] [place] [address] 50443- 7114 Sep, Bipolar disorder, current episode mixed, moderate F31.62 and Generalized anxiety disorder F41.1 [place] [id number] [place] [address] 68344- 7391 Sep, Bipolar disorder, current episode mixed, moderate F31.62 and Generalized anxiety disorder F41.1 [facility] [id number] [place] [address] 87191 -6764 08 Jul, 2016 Upper respiratory tract infection, unspecified type J06.9 [place] [id number] [place] [address] 85542- 5479 Jun, Bipolar disorder, current episode mixed, moderate F31.62 and Generalized anxiety disorder F41.1 [place] [id number] [place] [address] 78073- 2242 Apr, [place] [id number] [place] [address] 30629- 3487 Apr, Encounter for test, result positive Z32.01 [place] [id number] [place] [address] 40842- 7557 March, [place] [address] 41145- 1425 March, Bipolar disorder, current episode mixed, moderate F31.62 and Generalized anxiety disorder F41.1 [place] [id number] [place] [address] 86251- 7477 March, Bipolar disorder, current episode mixed, moderate F31.62 and Generalized anxiety disorder F41.1 [facility] [address] [address]- 5573 March, [facility] [address] [address]- 7917 March, [facility] [id number] [place] [address] 29478- 3439 Feb, [facility] [address] [place] [address] 94705- 2579 Feb, [facility] [id number] [place] [address] 94474- 3844 Feb, Bipolar disorder, current episode mixed, moderate F31.62 and Generalized anxiety disorder F41.1 [facility] [address] [place] [address] 92821- 0654 Jan, Abdominal pain R10.9 [facility] [address] [place] [address] 23348- 0035 Jan, [facility] [id number] [place] [address] 35195- 6762 29 Dec, 2015 Dental examination Z01.20 [facility] [address] [place] [address] 28012- 2989 Dec, Dental examination Z01.20 and Dental caries K02.9 [facility] [address] [place] [address] 33670- 4904 15 Dec, 2015 Bipolar disorder, current episode mixed, moderate F31.62 and Generalized anxiety disorder F41.1 [facility] [address] [place] [address] 67134- 0606 Dec, [facility] [address] [address]- 4110 Nov, Bipolar disorder, current episode mixed, moderate F31.62 ; Generalized anxiety disorder F41.1 and Seizure-like activity R56.9 [facility] [id number] [place] [address] 42661- 2926 Oct, [facility] [id number] [place] [address] 72346- 4176 Oct, Bipolar disorder, current episode mixed, moderate F31.62 [facility] [address] 03397- 1402 14 Oct, 2015 Well woman exam Z01.419 [...] Tobacco use Z72.0 and Hot flashes N95.1 [facility] [id number] [place] [address] 47974- 9447 09 Oct, 2015 Seizure-like activity R56.9 and Irregular periods N92.6 [place] [id number] [place] [address] 19108- 7060 07 Oct, 2015 Bipolar disorder, current episode mixed, moderate F31.62 ; Generalized anxiety disorder F41.1 and Underweight R63.6 [facility] [id number] [place] [address] 28483- 2805 Oct, [facility] [id number] [place] [address] 51549- 9615 Oct, Generalized anxiety disorder F41.1 and Unspecified mood [ affective] disorder F39 [facility] [id number] [place] [address] 67433 -9831 Oct, Back pain M54.9 and Anxiety F41.9 [facility] [address] [place] [address]- 1549 Oct, [facility] [id number] [place] [address] 56511 -5083 Sep, Arm pain, left M79.602 [facility] [id number] [place] [address] 48909- 7951 Sep, [facility] [address] [id number] Sep, Dental examination Z01.20 and Dental caries K02.9 [facility] [address] 56876- 4266 Sep, Generalized anxiety disorder F41.1 and Unspecified episodic mood disorder F39 [facility] [id number] [place] [address] 85967- 8141 Sep, Bilateral low back pain without sciatica M54.5 and Seizure- like activity R56.9 [facility] [id number] [place] [address] 83657- 9143 Aug, [facility] [id number] [place] [address] 01824- 6341 Aug, [facility] [id number] [place] [address] 25797- 5040 Aug, [facility] [id number] [place] [address] 05697- 4036 Aug, Visual changes H53.9 and Bilateral low back pain without sciatica M54.5 [facility] [id number] [place] [address] 59857- 4582 Jul, [facility] [address] 16112- 7139 Jun, Bipolar I disorder, most recent episode (or current) mixed, moderate 296.62 ; Generalized anxiety disorder 300.02 and High risk medication use V58.69 [facility] [address] 32003- 8991 Jun, [facility] [address] [address]- 4658 May, [facility] [id number] [place] [address] 36099- 2776 May, Bipolar I disorder, most recent episode (or current) mixed, moderate 296.62 and Generalized anxiety disorder 300.02 [facility] [id number] [place] [address] [id number] May, Dental examination V72.2 [facility] [id number] [place] [address] 67054- 9248 March, Bipolar I disorder, most recent episode (or current) mixed, moderate 296.62 and Generalized anxiety disorder 300.02 [facility] [id number] [place] [address] 91373- 6606 March, [facility] [id number] [place] [address] 02526- 6074 March, [facility] [id number] [place] [address] 87257- 3914 March, Underweight 783.22 ; Hand pain, right 729.5 and Reflux gastritis 535.40 [facility] [address] [address]- 4606 Feb, [facility] [id number] [place] [address] 96521- 4877 Feb, [facility] [id number] [place] [address] 56595- 1306 18 Jan, 2015 [facility] [id number] [place] [address] 79062- 3772 Jan, [facility] [id number] [place] [address] 081279- 6786 Jan, [facility] [address] [place] [address] 113795- 6848 Jan, [facility] [place] [facility] [address] [id number] [place] [address]- 3490 13 Jan, 2014 [facility] [place] [facility] [address] [id number] [place] [address]- 4762 13 Jan, 2014 [facility] [place] [facility] [address] [id number] [place] [address]- 5809 05 Jan, 2014 [facility] [place] [facility] [address] [id number] [place] [address]- 4365 05 Jan, 2014 [facility] [place] [facility] [address] [id number] [place] [address]- 4565 Jan, 2014 [facility] [place] [facility] [address] [id number] [place] [address]- 3083 Jan, 2014 [facility] [place] [facility] [address] [facility] [id number] [place] [address]- 7769 Jan, [facility] [place] [facility] [address] [facility] [id number] [place] [address]- 2940 Jan, 2014 [facility] [place] [facility] [address] [facility] [id number] [place] [address]- 2411 Dec, [facility] [place] [facility] [address] [facility] [id number] [place] [address]- 7427 Dec, 2014 [facility] [place] [facility] [address] [facility] [id number] [place] [address]- 8806 Dec, 2014 [facility] [place] [facility] [address] [facility] [id number] [place] [address]- 2999 Dec, 2014 [facility] [place] [facility] [address] [facility] [id number] [place] [address]- 9943 18 Dec, 2014 [facility] [place] [facility] [address] [id number] [place] [address]- 3675 17 Dec, 2014 [facility] [place] [facility] [address] [facility] [id number] [place] [address]- 1554 17 Dec, 2014 [facility] [place] [facility] [address] [facility] [id number] [place] [address]- 6416 Dec, 2014 [facility] [place] [facility] [address] [id number] [place] [address]- 5736 Dec, 2014 [facility] [place] [facility] [address] [id number] [place] [address]- 6596 Dec, 2014 [facility] [place] [facility] [address] [facility] [id number] [place] [address]- 8136 Dec, 2014 [facility] [place] [facility] [address] [id number] [place] [address]- 254 Dec, 2014 [facility] [place] [facility] [address] [id number] [place] [address]- 3605 Dec, 2014 [facility] [place] [facility] [address] [facility] [id number] [place] [address]- 9291 Dec, 2014 [facility] [place] [facility] [id number] [place] [address]- 9684 Dec, 2014 [facility] [place] [facility] [address] [facility] [id number] [place] [address]- 2824 Dec, 2014 [facility] [place] [facility] [address] [facility] [id number] [place] [address]- 0677 Dec, 2014 [facility] [place] [facility] [id number] [place] [address]- 0896 Dec, 2014 [facility] [place] [facility] [address] [facility] [id number] [address]- 8837 Dec, 2014 [facility] [place] [facility] [address] [facility] [id number] [place] [address]- 3039 Nov, [facility] [place] [facility] [address] [id number] [place] [address]- 6494 Nov, [facility] [place] [facility] [address] [facility] [id number] [place] [address]- 5675 Nov, [facility] [place] [facility] [address] [facility] [id number] [place] [address]- 0847 Nov, [facility] [place] [facility] [address] [id number] [place] [address]- 8234 Nov, [facility] [place] [facility] [address] [id number] [place] [address]- 9476 Nov, [facility] [place] [facility] [address] [id number] [place] [id number] Nov, [facility] [place] [facility] [address] [id number] [place] [address]- 4107 Nov, [facility] [place] [facility] [address] [id number] [place] [address]- 9487 Nov, [facility] [place] [facility] [address] [id number] [place] [id number] Nov, [facility] [place] [facility] [address] [id number] [place] [address]- 3625 Nov, [facility] [place] [facility] [address] [id number] [place] [address] Nov, [facility] [place] [facility] [address] [id number] [place] [address] Oct, [facility] [place] [facility] [address] [id number] [place] [address] Oct, [facility] [place] [facility] [address] [id number] [place] [address] Oct, [facility] [place] [facility] [address] [id number] [place] [address] 30 Oct, 2014 [facility] [place] [facility] [address] [id number] [place] [address] Oct, [facility] [place] [facility] [address] [id number] [place] [address] Oct, [facility] [place] [facility] [address] [id number] [place] [address] Oct, [facility] [place] [facility] [address] [id number] [place] [address] Oct, [facility] [place] [facility] [address] [id number] [place] [address] Oct, [facility] [place] [facility] [address] [id number] [place] [address] Oct, [facility] [place] [facility] [address] [id number] [place] [address] Oct, [facility] [place] [facility] [address] [id number] [place] [address] Oct, [facility] [place] [facility] [address] [id number] [place] [address] Sep, [facility] [place] [facility] [address] [id number] [place] [address] Sep, [facility] [place] [facility] [address] [id number] [place] [address] Sep, [facility] [place] [facility] [address] [id number] [place] [address] Sep, [facility] [place] [facility] [address] [id number] [place] [address] Sep, [facility] [place] [facility] [address] [facility] [id number] [place] [address] Sep, [facility] [place] [facility] [address] [id number] [place] [address] Sep, [facility] [place] [facility] [address] [id number] [place] [address] Sep, [facility] [place] [facility] [address] [id number] [place] [address] Aug, [facility] [place] [facility] [address] [id number] [place] [address] 1448 Aug, [facility] [place] [facility] [address] [id number] [place] [address] 100[address] Aug, [facility] [place] [facility] [address] [id number] [place] [address] 3081 Aug, [facility] [place] [facility] [address] [id number] [place] [address] 5985 Aug, [facility] [place] [facility] [address] [id number] [place] [address] 5518 Aug, [facility] [place] [facility] [address] [id number] [place] [address] 89[address] Aug, [facility] [place] [facility] [address] [id number] [place] [address] 3828 Aug, [facility] [place] [facility] [address] [id number] [place] [address] 5057 Aug, [facility] [place] [facility] [address] [id number] [place] [address]- 6867 Aug, [facility] [place] [facility] [address] [id number] [place] [address] 1724 Aug, [facility] [place] [facility] [address] [id number] [place] [address]- 6593 Aug, [facility] [place] [facility] [address] [id number] [place] [address]- 5171 Aug, [facility] [place] [facility] [address] [id number] [place] [address] 9139 Jul, [facility] [place] [facility] [address] [id number] [place] [address]- 8669 Jul, [facility] [place] [facility] [address] [id number] [place] [address]- 6288 Jul, [facility] [place] [facility] [address] [id number] [place] [address]- 2546 Jul, [facility] [place] [facility] [address] [id number] [place] [address]- 7355 Jun, [facility] [place] [facility] [address] [id number] [place] [address] 2932 Jun, [facility] [place] [facility] [address] [id number] [place] [address]- 4671 Jun, [facility] [place] [facility] [address] [id number] [place] [address]- 4229 Jun, [facility] [place] [facility] [address] [id number] [place] [address]- 9482 Jun, [facility] [place] [facility] [address] [id number] [place] [address]- 6548 Jun, [facility] [place] [facility] [address] [id number] [place] [address] 3215 May, [facility] [place] [facility] [address] [id number] [place] [address] 2486 May, [facility] [place] [facility] [address] [id number] [place] [address]- 3488 May, [facility] [place] [facility] [address] [id number] [place] [address] 8015 May, [facility] [place] [facility] [address] [id number] [place] [address]- 3495 Apr, [facility] [place] [facility] [address] [id number] [place] [address]- 1989 Apr, [facility] [place] [facility] [address] [id number] [place] [address]156 March, [facility] [place] [facility] [address] [id number] [place] [address]- 6805 March, [facility] [place] [facility] [address] [id number] [place] [address]- 0738 March, [facility] [place] [facility] [address] [id number] [place] [address]- 2941 March, [facility] [place] [facility] [address] [id number] [place] [address] 9003 March, [facility] [place] [facility] [address] [id number] [place] [address]- 0129 March, [facility] [address] [id number] [place] [address]- 7044 Feb, [facility] [place] [facility] [address] [id number] [place] [address]- 8575 Feb, [facility] [place] [facility] [address] [id number] [place] [address]- 1326 Dec, [facility] [place] [facility] [address] [id number] [place] [address]- 7626 Dec, [facility] [place] [facility] [address] [id number] [place] [address] Nov, [facility] [place] [facility] [address] [id number] [place] [address]- 9911 Nov, [facility] [place] [facility] [address] [id number] [place] [address] 6805 Sep, [facility] [place] [facility] [address] [id number] [place] [address]- 3757 Sep, [facility] [place] [facility] [address] [facility] [id number] [place] [address]- 5339 Sep, [facility] [place] [facility] [address] [facility] [id number] [place] [address]- 2690 Sep, [facility] [place] [facility] [address] [id number] [place] [address]- 1715 Sep, [facility] [place] [facility] [address] [id number] [place] [address]- 3579 Sep, [facility] [place] [facility] [address] [id number] [place] [address]- 8053 Sep, [facility] [place] [facility] [address] [id number] [place] [address]- 4858 Aug, [facility] [place] [facility] [address] [id number] [place] [address]- 8833 Aug, [facility] [place] [facility] [address] [id number] [place] [address]- 2608 Aug, [facility] [place] [facility] [address] [id number] [place] [address]- 9839 Aug, [facility] [place] [facility] [address] [id number] [place] [address]- 4188 Aug, [facility] [place] [facility] [address] [id number] [place] [address]- 8312 Aug, [facility] [place] [facility] [address] [id number] [place] [address]- 7598 Jul, [facility] [place] [facility] [address] [id number] [place] [address]- 6100 Jul, [facility] [place] [facility] [address] [id number] [place] [address]- 6155 16 Jul, 2013 [facility] [place] [facility] [address] [id number] [place] [address]- 9056 Jul, [facility] [place] [facility] [address] [id number] [place] [address]- 6151 Jun, [facility] [place] [facility] [address] [id number] [place] [address] 2789 Jun, [facility] [place] [facility] [address] [id number] [place] [address]- 4759 Jun, [facility] [place] [facility] [address] [id number] [place] [address]- 8601 Jun, [facility] [place] [facility] [address] [id number] [place] [address]- 8236 Jun, [facility] [place] [facility] [address] [id number] [place] [address]- 5272 Jun, [facility] [place] [facility] [address] [id number] [place] [address]- 5638 Jun, [facility] [place] [facility] [address] [id number] [place] [address]- 9049 23 May, 2013 [facility] [place] [facility] [address] [id number] [place] [address]- 1550 23 May, 2013 [facility] [place] [facility] [address] [id number] [place] [address]- 3481 16 May, 2013 [facility] [place] [facility] [address] [id number] [place] [address]- 4338 15 May, 2013 [facility] [place] [facility] [address] [id number] [place] [address]- 2965 13 May, 2013 [facility] [place] [facility] [address] [id number] [place] [address]- 2337 05 May, 2013 [facility] [place] [facility] [address] [id number] [place] [address]- 5977 03 May, 2013 [facility] [place] [facility] [address] [id number] [place] [address]- 4730 28 Apr, 2013 [facility] [place] [facility] [address] [id number] [place] [address]- 1646 27 Apr, 2013 [facility] [place] [facility] [address] [id number] [place] [address]- 2932 27 Apr, 2013 [facility] [place] [facility] [address] [id number] [place] [address]- 4036 26 Apr, 2013 [facility] [place] [facility] [address] [id number] [place] [address]- 3896 20 Apr, 2013 [facility] [place] [facility] [address] [id number] [place] [address]- 4621 18 Apr, 2013 [facility] [place] [facility] [address] [id number] [place] [address]- 9411 18 Apr, 2013 [facility] [place] [facility] [address] [id number] [place] [address]- 3315 18 Apr, 2013 [facility] [place] [facility] [address] [id number] [place] [address]- 0747 17 Apr, 2013 [facility] [place] [facility] [address] [id number] [place] [address]- 9439 14 Apr, 2013 [facility] [place] [facility] [address] [id number] [place] [address]- 6625 14 Apr, 2013 [facility] [place] [facility] [address] [id number] [place] [address]- 0720 11 Apr, 2013 [facility] [place] [facility] [address] [id number] [place] [address]- 7848 10 Apr, 2013 [facility] [place] [facility] [address] [id number] [place] [address]- 6711 09 Apr, 2013 [facility] [place] [facility] [address] [id number] [place] [address]- 1842 07 Apr, 2013 [facility] [place] [facility] [address] [id number] [place] [address]- 4828 06 Apr, 2013 [facility] [place] [facility] [address] [id number] [place] [address]- 5528 06 Apr, 2013 [facility] [place] [facility] [address] [id number] [place] [address]- 2224 05 Apr, 2013 [facility] [place] [facility] [address] [id number] [place] [address]- 1137 Apr, [facility] [place] [facility] [address] [id number] [place] [address]- 6604 March, [facility] [place] [facility] [address] [id number] [place] [address]- 2483 March, [facility] [place] [facility] [address] [id number] [place] [address]- 3527 March, [facility] [place] [facility] [address] [id number] [place] [address]- 0284 March, [facility] [place] [facility] [address] [id number] [place] [address]- 5590 March, [facility] [place] [facility] [address] [id number] [place] [address]- 7970 March, [facility] [address] [id number] [place] [address]- 3308 March, [facility] [place] [facility] [address] [id number] [place] [address]- 1019 Feb, [facility] [place] [facility] [address] [id number] [place] [address]- 2205 Feb, [facility] [place] [facility] [address] [id number] [place] [address]- 8389 27 Jan, 2013 [facility] [place] [facility] [address] [id number] [place] [address]- 8005 18 Jan, 2013 [facility] [place] [facility] [address] [id number] [place] [address]- 2750 15 Jan, 2013 [facility] [place] [facility] [address] [id number] [place] [address]- 4630 14 Jan, 2013 [facility] [place] [facility] [address] [id number] [place] [address]- 9370 13 Jan, 2013 [facility] [place] [facility] [address] [id number] [place] [address]- 1881 12 Jan, 2013 [facility] [place] [facility] [address] [id number] [place] [address]- 7564 11 Jan, 2013 [facility] [place] [facility] [address] [id number] [place] [address]- 1257 09 Jan, 2013 [facility] [place] [facility] [address] [id number] [place] [address]- 7802 08 Jan, 2013 [facility] [place] [facility] [address] [id number] [place] [address]- 3323 07 Jan, 2013 [facility] [place] [facility] [address] [id number] [place] [address]- 3548 06 Jan, 2013 [facility] [place] [facility] [address] [id number] [place] [address]- 2198 17 Nov, 2012 [facility] [place] [facility] [address] [id number] [place] [address]- 3517 Oct, [facility] [place] [facility] [address] [id number] [place] [address]- 5160 Oct, [facility] [place] [facility] [address] [id number] [place] [address]- 4926 Oct, [facility] [place] [facility] [address] [id number] [place] [address]- 9334 Oct, [facility] [place] [facility] [address] [id number] [place] [address]- 6184 30 Sep, 2012 [facility] [place] [facility] [address] [id number] [place] [address]- 9077 30 Sep, 2012 [facility] [place] [facility] [address] [id number] [place] [address]- 3135 Sep, [facility] [place] [facility] [address] [id number] [place] [address]- 8891 16 Sep, 2012 [facility] [place] [facility] [address] [id number] [place] [address]- 0914 Sep, [facility] [place] [facility] [address] [id number] [place] [address]- 1845 Sep, [facility] [place] [facility] [address] [facility] [id number] [place] [address]- 0085 16 Sep, 2012 [facility] [place] [facility] [address] [id number] [place] [address]- 4875 Sep, [facility] [place] [facility] [address] [id number] [place] [address]- 6424 Sep, [facility] [place] [facility] [address] [id number] [place] [address]- 1128 Sep, [facility] [place] [facility] [address] [id number] [place] [address]- 9525 Sep, [facility] [place] [facility] [address] [id number] [place] [address]- 4959 Aug, [facility] [place] [facility] [address] [id number] [place] [address]- 9676 Aug, [facility] [place] [facility] [address] [id number] [place] [address]- 4142 Aug, [facility] [place] [facility] [address] [id number] [place] [address]- 9801 28 Jul, 2012 [facility] [place] [facility] [address] [id number] [place] [address]- 6113 25 Jul, 2012 [facility] [place] [facility] [address] [id number] [place] [address]- 6055 19 Jul, 2012 [facility] [place] [facility] [address] [id number] [place] [address]- 3854 17 Jul, 2012 [facility] [place] [facility] [address] [id number] [place] [address]- 6302 20 Jun, 2012 [facility] [place] [facility] [address] [id number] [place] [address]- 0351 16 Jun, 2012 [facility] [place] [facility] [address] [id number] [place] [address]- 0967 15 Jun, 2012 [facility] [place] [facility] [address] [id number] [place] [address]- 8929 15 Jun, 2012 [facility] [place] [facility] [address] [id number] [place] [address]- 5891 Jun, [facility] [place] [facility] [address] [id number] [place] [address]- 0761 March, [facility] [place] [facility] [address] [id number] [place] [address]- 9204 Feb, [facility] [place] [facility] [address] [id number] [place] [address]- 0387 Jan, [facility] [place] [facility] [address] [id number] [place] [address]- 4413 Jan, [facility] [place] [facility] [address] [id number] [place] [address]- 6746 22 Jan, 2012 [facility] [address] [id number] [place] [address]- 9942 14 Jan, 2012 [facility] [place] [facility] [address] [id number] [place] [address]- 2206 14 Jan, 2012 [facility] [address] [facility] [id number] [place] [address]- 9250 14 Jan, 2012 [facility] [place] [facility] [address] [id number] [place] [address]- 7041 28 Dec, 2011 [facility] [place] [facility] [address] [id number] [place] [address]- 0733 27 Dec, 2011 [facility] [place] [facility] [address] [id number] [place] [address]- 4384 23 Dec, 2011 [facility] [address] [facility] [id number] [place] [address]- 3131 21 Dec, 2011 [facility] [place] [facility] [address] [id number] [place] [address]- 6117 20 Dec, 2011 [facility] [place] [facility] [address] [facility] [id number] [place] [address]- 2846 19 Dec, 2011 [facility] [place] [facility] [address] [facility] [id number] [place] [address]- 7020 17 Dec, 2011 [facility] [place] [facility] [address] [facility] [id number] [place] [address]- 2806 16 Dec, 2011 [facility] [place] [facility] [address] [id number] [place] [address]- 1733 31 Nov, 2011 [facility] [place] [facility] [address] [id number] [place] [address]- 6208 Oct, [facility] [place] [facility] [address] [facility] [id number] [place] [address]- 4863 18 Sep, 2011 [facility] [place] [facility] [address] [facility] [id number] [place] [address] Sep, [facility] [address] [facility] [id number] [place] [address]- 6533 Sep, [facility] [address] [id number] [address]- 6243 Sep, [facility] [address] [facility] [id number] [place] [address]- 6989 Sep, [facility] [address] [id number] [place] [address]- 6156 Sep, [facility] [address] [facility] [id number] [place] [address]- 1034 Jan, [facility] [address] [id number] [address]- 8051 Apr, IMMUNIZATIONS No Known Immunizations SOCIAL HISTORY Never Assessed REASON FOR VISIT Triage JStrasserRN PLAN OF CARE Activity Details Follow Up prn Reason: VITAL SIGNS Height 66 in 2018-01-20 Weight 128.6 lbs 2018-01-20 Temperature 98.6 degrees Fahrenheit 2018-01-20 Heart Rate 80 bpm 2018-01-20 Respiratory Rate 20 2018-01-20 BMI 20.75 kg/m2 2018-01-20 Blood pressure systolic 118 mmHg 2018-01-20 Blood pressure diastolic 74 mmHg 2018-01-20 MEDICATIONS Medication Instructions Dosage Frequency Start Date End Date Duration Status PredniSONE 20 MG Orally 3 tablets x 3 days, followed by 2 tablets x 3 days, followed by 1 tablet x 3 days. as directed Jan, Jan, 9 days Active Oxycodone-Acetaminophen 10-325 MG Orally every 4 hrs 1 tablet as needed 4h Not-Taking Naproxen 500 MG Orally every 12 hrs 1 tablet with food or milk as needed 12h Jan, Jan, 14 days Active Klonopin 0.5 MG Orally three times a day as needed 1 tablet Aug, 30 days Active Lamictal 150 MG Orally Once a day 1 tablet 24h Aug, Active Remeron 30 MG Orally Once a day at bedtime 1 tablet Oct, 30 Active Abilify 5 mg Orally Once a day 1 tablet 24h Nov, 30 day(s) Active Cyclobenzaprine HCl 10 mg Orally at bedtime as needed 1 tablet as needed Dec, Jan, 28 days Active RESULTS No Results PROCEDURES No [...] History Left ovary removed 12/2016 Hospitalization History [facility] Admission x4 2009 most recent admission Hospitalization History [facility]; overdose 2010 Hospitalization History child 11/29/2016
--- OUTSIDE RECORDS SUMMARY | 2018-08-05 20:31 | XMS REPORT ---
Author Author TOMASZ MARGARITA [facility] Address [address] [place] [address] Care Team Providers Care Neurology Stroke Physician Name Role Phone TOMASZ, MARGARITA Unavailable PROBLEMS Type Condition ICD9-CM Code UNU93-SX Code Onset Dates Condition Status SNOMED Code Problem Generalized anxiety disorder F41.1 Active 54016663 Problem Acute non intractable tension-type headache G44.209 Active 622986328 Problem Acute right-sided low back pain with right-sided sciatica M54.41 Active 539364983 Problem Post traumatic stress disorder F43.10 Active 01382815 Problem Bipolar disorder, current episode mixed, moderate F31.62 Active 810135578 Problem Endometriosis N80.9 Active 138404462 Problem Borderline personality disorder F60.3 Active [id number] ALLERGIES No Information ENCOUNTERS Encounter Location Date Diagnosis [facility] [facility] [id number] [place] [address] 13878- 1803 Jul, [facility] [id number] [place] [address] [id number] Jun, [facility] [facility] [id number] [place] [address] 40279- 6851 May, Palpitations R00.2 [facility] [facility] [id number] [place] [address] 32944- 2291 May, Palpitations R00.2 [facility] [facility] [id number] [place] [address] 67500- 6494 May, Palpitations R00.2 and Frequent bowel movements R19.4 [facility] [facility] [id number] [place] [address] 52233- 8831 May, Bipolar disorder, current episode mixed, moderate F31.62 ; Post traumatic stress disorder F43.10 and Borderline personality disorder F60.3 [facility] [id number] [id number] 15 Apr, 2018 Dental examination Z01.20 [facility] [address] [address] 15 Apr, 2018 [facility] [id number] [place] [address] 56462- 0210 15 Apr, 2018 Dental examination Z01.20 [facility] [id number] [place] [address] 79171 -4327 15 Apr, 2018 Tooth pain K08.89 [facility] [id number] [place] [address] 71785- 9549 06 Apr, 2018 Bipolar disorder, current episode mixed, moderate F31.62 ; Post traumatic stress disorder F43.10 and Borderline personality disorder F60.3 [facility] [id number] [place] [address] 57398 -7573 18 Mar, 2018 Abdominal pain R10.9 ; UTI symptoms R39.9 and Other microscopic hematuria R31.29 [facility] [facility] [id number] [place] [address] 79248- 9644 March, [facility] [facility] [id number] [place] [address] 07453- 3662 March, Bipolar disorder, current episode mixed, moderate F31.62 ; Post traumatic stress disorder F43.10 and Borderline personality disorder F60.3 [facility] [id number] [place] [address] 13819- 3351 30 Feb, 2018 Encounter for immunization Z23 [facility] [id number] [place] [address] 65428- 5718 16 Feb, 2018 Bipolar disorder, current episode mixed, moderate F31.62 ; Post traumatic stress disorder F43.10 and Borderline personality disorder F60.3 [facility] [address] [place] [address] 14782- 4503 Feb, Bipolar disorder, current episode mixed, moderate F31.62 ; Post traumatic stress disorder F43.10 ; Borderline personality disorder F60.3 and 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 [place] [id number] 81803- 0245 Jan, Encounter for immunization Z23 [facility] [id number] [place] [address] 35485- 1242 Jan, [facility] [facility] [address] 82760- 8173 Jan, Bipolar disorder, current episode mixed, moderate F31.62 [facility] [address] 91731 -8312 Jan, Lumbar back pain M54.5 [place] [address] 99956- 8261 Dec, Low back pain M54.5 [place] [address] 06861- 0135 Dec, Bipolar disorder, current episode mixed, moderate F31.62 [place] [address] 74975- 4443 Dec, Generalized anxiety disorder F41.1 and Bipolar disorder, current episode mixed, moderate F31.62 [facility] [id number] [place] [address] 21384 -2091 Nov, Acute non intractable tension-type headache G44.209 [facility] [id number] [place] [address] 66350- 7037 Nov, Bipolar disorder, current episode mixed, moderate F31.62 ; Post traumatic stress disorder F43.10 and Borderline personality disorder F60.3 [place] [id number] [place] [address] 86487- 0264 Nov, Bipolar disorder, current episode mixed, moderate F31.62 [facility] [address] 30998 -5502 Nov, Abdominal pain R10.9 ; History of PCOS Z87.42 ; History of endometriosis Z87.42 and Pelvic pain R10.2 [place] [id number] [place] [address] 06408- 4442 Nov, [facility] [id number] [place] [address] 09357 -8544 Oct, History of PCOS Z87.42 ; History of endometriosis Z87.42 and Pain R52 [place] [id number] [place] [address] 50272- 1342 Oct, Bipolar disorder, current episode mixed, moderate F31.62 ; Post traumatic stress disorder F43.10 and Borderline personality disorder F60.3 [place] [id number] [place] [address] 92215- 7618 Oct, Bipolar disorder, current episode mixed, moderate F31.62 [place] [id number] [place] [address] 75622- 6668 Sep, Bipolar disorder, current episode mixed, moderate F31.62 ; Post traumatic stress disorder F43.10 ; Borderline personality disorder F60.3 and 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 [place] [address] [place] [address] 54833- 5477 Sep, Bipolar disorder, current episode mixed, moderate F31.62 [facility] [id number] [place] [address] 34347 -4142 Sep, Endometriosis N80.9 and Acute right-sided low back pain with right-sided sciatica M54.41 [place] [id number] [place] [address] 75094- 5076 Aug, [place] [id number] [place] [address] 31583- 8523 Aug, Bipolar disorder, current episode mixed, moderate F31.62 ; Post traumatic stress disorder F43.10 and Borderline personality disorder F60.3 [place] [id number] [address]- 9852 11 Aug, 2017 Bipolar disorder, current episode mixed, moderate F31.62 ; Post traumatic stress disorder F43.10 and Borderline personality disorder F60.3 [facility] [address] [place] [address] 95059- 0391 13 Jul, 2017 Bipolar disorder, current episode mixed, moderate F31.62 ; Post traumatic stress disorder F43.10 and Borderline personality disorder F60.3 [facility] [id number] [place] [address] 72562 -3459 11 Jul, 2017 Pharyngitis, unspecified etiology J02.9 and Streptococcal pharyngitis J02.0 [facility] [address] [place] [address] 92160- 8713 16 Jun, 2017 Bipolar disorder, current episode mixed, moderate F31.62 ; Post traumatic stress disorder F43.10 and Borderline personality disorder F60.3 [place] [id number] [place] [address] 91465- 8959 May, [facility] [id number] [place] [address] 25648- 6598 May, [facility] [id number] [place] [address] 08265- 1324 May, Bipolar disorder, current episode mixed, moderate F31.62 and Generalized anxiety disorder F41.1 [facility] [id number] [place] [address] 25546- 9738 March, Bipolar disorder, current episode mixed, moderate F31.62 and Generalized anxiety disorder F41.1 [place] [id number] [place] [address] 07092- 7801 March, Pelvic pain R10.2 [facility] [address] [place] [address] 83706- 7456 March, [facility] [id number] [place] [address] 93240- 9149 Feb, Bipolar disorder, current episode mixed, moderate F31.62 and Generalized anxiety disorder F41.1 [facility] [id number] [place]- 3565 Jan, [facility] [id number] [place] 9585 Jan, Bipolar disorder, current episode mixed, moderate F31.62 [facility] [address] 757076- 6910 Jan, Bipolar disorder, current episode mixed, moderate F31.62 [facility] [id number] [place] [address] 0296 Jan, Bilateral low back pain without sciatica M54.5 [facility] [id number] [place] [address] [id number] Jan, Dental caries K02.9 and Dental examination Z01.20 [facility] [address] [id number] Jan, Encounter for dental examination and cleaning without abnormal findings Z01.20 [facility] [id number] [place] [address] 7872 Jan, Bipolar disorder, current episode mixed, moderate F31.62 and Generalized anxiety disorder F41.1 [facility] [id number] [place] [address] 50362- 0311 Dec, [facility] [id number] [place] [address] 9164 Dec, Bipolar disorder, current episode mixed, moderate F31.62 and Generalized anxiety disorder F41.1 [facility] [id number] [place] [address]00 Dec, Other fatigue R53.83 and Orthostatic hypotension I95.1 [facility] [id number] [place] [address] [id number] Nov, Dental examination Z01.20 [facility] [id number] [address] 02 Nov, 2016 Bronchitis J40 [facility] [id number] [place] [address] 95658- 7990 14 Oct, 2016 Generalized anxiety disorder F41.1 [facility] [id number] [place] [address] 08776- 9008 14 Sep, 2016 Bipolar disorder, current episode mixed, moderate F31.62 and Generalized anxiety disorder F41.1 [facility] [id number] [place] [address] 24501- 0924 02 Sep, 2016 Bipolar disorder, current episode mixed, moderate F31.62 and Generalized anxiety disorder F41.1 [facility] [id number] [place] [address] 50264 -5189 08 Jul, 2016 Upper respiratory tract infection, unspecified type J06.9 [place] [id number] [place] [address] 63268- 4492 Jun, Bipolar disorder, current episode mixed, moderate F31.62 and Generalized anxiety disorder F41.1 [place] [id number] [place] [address] 01274- 1255 Apr, [place] [id number] [place] [address] 25999- 8610 Apr, Encounter for test, result positive Z32.01 [place] [id number] [place] [address] 65157- 7755 March, [place] [id number] [place] [address] 66362- 7411 March, Bipolar disorder, current episode mixed, moderate F31.62 and Generalized anxiety disorder F41.1 [place] [id number] [place] [address] 18000- 8951 March, Bipolar disorder, current episode mixed, moderate F31.62 and Generalized anxiety disorder F41.1 [place] [id number] [place] [address] 03639- 0528 March, [facility] [address], [place] [address]- 8512 March, [facility] [id number] [place] [address] 76914- 0496 Feb, [facility] [id number] [place] [address] 63410- 9392 Feb, [facility] [id number] [place] [address] 61251- 5659 Feb, Bipolar disorder, current episode mixed, moderate F31.62 and Generalized anxiety disorder F41.1 [facility] [id number] [place] [address] 52214- 5923 Jan, Abdominal pain R10.9 [facility] [address] [place] [address] 37011- 6191 Jan, [facility] [id number] [place] [address] 19957- 9168 Dec, Dental examination Z01.20 [facility] [address] [place] [address] 50661- 6161 Dec, Dental examination Z01.20 and Dental caries K02.9 [facility] [id number] [place] [address] 25951- 0697 Dec, Bipolar disorder, current episode mixed, moderate F31.62 and Generalized anxiety disorder F41.1 [facility] [id number] [place] [address] 54001- 0894 Dec, [facility] [id number] [place] [address] 52063- 7749 Nov, Bipolar disorder, current episode mixed, moderate F31.62 ; Generalized anxiety disorder F41.1 and Seizure-like activity R56.9 [facility] [address] [address]- 6229 Oct, [facility] [id number] [place] [address] 86908- 2600 Oct, Bipolar disorder, current episode mixed, moderate F31.[address] 01684- 5807 14 Oct, 2015 Well woman exam Z01.419 [...] Tobacco use Z72.0 and Hot flashes N95.[address] 39078- 2307 09 Oct, 2015 Seizure-like activity R56.9 and Irregular periods N92.[address] 70840- 3038 07 Oct, 2015 Bipolar disorder, current episode mixed, moderate F31.62 ; Generalized anxiety disorder F41.1 and Underweight R63.6 [place] [address] 33320- 7453 Oct, [address] 84319- 8328 Oct, Generalized anxiety disorder F41.1 and Unspecified mood [ affective] disorder F39 [facility] [address] [place] [address] 77424 -6134 Oct, Back pain M54.9 and Anxiety F41.9 [place] [address] 47191- 3564 Oct, [facility] [address] 73944 -6505 Sep, Arm pain, left M79.602 [facility] [address] [place] [address] 59170- 8791 Sep, [facility] [id number] [place] [address] [id number] Sep, Dental examination Z01.20 and Dental caries K02.9 [facility] [id number] [place] [address] 08858- 0604 Sep, Generalized anxiety disorder F41.1 and Unspecified episodic mood disorder F39 [facility] [id number] [place] [address] 99989- 0828 Sep, Bilateral low back pain without sciatica M54.5 and Seizure- like activity R56.9 [facility] [id number] [place] [address] 35091- 3350 Aug, [facility] [id number] [place] [address] 61779- 5441 Aug, [facility] [id number] [place] [address] 05289- 9369 Aug, [facility] [id number] [place] [address] 80605- 7406 Aug, Visual changes H53.9 and Bilateral low back pain without sciatica M54.5 [facility] [id number] [place] [address] 09238- 2558 Jul, [facility] [id number] [place] [address] 91480- 0857 Jun, Bipolar I disorder, most recent episode (or current) mixed, moderate 296.62 ; Generalized anxiety disorder 300.02 and High risk medication use V58.69 [facility] [id number] [place] [address] 60596- 7496 Jun, [facility] [id number] [place] [address] 83147- 8168 May, [facility] [id number] [place] [address] 97892- 1163 May, Bipolar I disorder, most recent episode (or current) mixed, moderate 296.62 and Generalized anxiety disorder 300.02 [facility] [address] [id number] May, Dental examination V72.2 [facility] [address], [place] [address]- 5534 March, Bipolar I disorder, most recent episode (or current) mixed, moderate 296.62 and Generalized anxiety disorder 300.02 [facility] [address]- 1462 March, [facility] [id number] [place] [address] 82330- 5600 March, [facility] [id number] [place] [address] 22456- 9393 March, Underweight 783.22 ; Hand pain, right 729.5 and Reflux gastritis 535.40 [facility] [address] [address]- 8412 Feb, [facility] [id number] [place] [address] 26798- 2956 Feb, [facility] [address], [place] [address]- 5939 18 Jan, 2015 [facility] [address], [place] [address]- 4464 18 Jan, 2015 [facility] [address], [place] [address]- 5579 16 Jan, 2015 [facility] [id number] [place] [address] 781687- 9694 16 Jan, 2015 [facility] [address], [place] [address]- 6671 Jan, [facility] [facility] [id number] [place] [address] 22968- 8274 Jan, [facility] [place] [facility] [address] [id number] [place] [address]- 1249 05 Jan, 2015 [facility] [place] [facility] [address] [id number] [place] [address]- 0828 05 Jan, 2014 [facility] [place] [facility] [address] [id number] [place] [address]- 5110 04 Jan, 2015 [facility] [place] [facility] [address] [id number] [place] [address]- 4089 04 Jan, 2015 [facility] [place] [facility] [address] [id number] [place] [address]- 7927 02 Jan, 2015 [facility] [place] [facility] [address] [id number] [place] [address]- 3670 Jan, [facility] [place] [facility] [address] [facility] [id number] [place] [address]- 7101 20 Dec, 2014 [facility] [place] [facility] [address] [facility] [id number] [place] [address]- 7059 20 Dec, 2014 [facility] [place] [facility] [address] [id number] [place] [address]- 5220 19 Dec, 2014 [facility] [place] [facility] [address] [facility] [id number] [place] [address]- 8124 19 Dec, 2014 [facility] [place] [facility] [address] [facility] [id number] [place] [address]- 2621 18 Dec, 2014 [facility] [place] [facility] [address] [id number] [place] [address]- 1037 17 Dec, 2014 [facility] [place] [facility] [address] [id number] [place] [address]- 8058 17 Dec, 2014 [facility] [place] [facility] [address] [facility] [id number] [place] [address]- 0834 16 Dec, 2014 [facility] [place] [facility] [address] [facility] [id number] [place] [address]- 1365 16 Dec, 2014 [facility] [place] [facility] [address] [id number] [place] [address]- 5195 Dec, 2014 [facility] [place] [facility] [address] [id number] [place] [address]- 7810 Dec, 2014 [facility] [place] [facility] [address] [id number] [place] [address]- 9916 Dec, 2014 [facility] [place] [facility] [address] [id number] [place] [address]- 6350 Dec, 2014 [facility] [place] [facility] [address] [id number] [place] [address]- 9792 Dec, 2014 [facility] [place] [facility] [address] [id number] [place] [address]- 2879 Dec, 2014 [facility] [place] [facility] [address] [facility] [id number] [place] [address]- 2753 Dec, 2014 [facility] [place] [facility] [address] [facility] [id number] [place] [address]- 8832 Dec, 2014 [facility] [place] [facility] [address] [facility] [id number] [place] [address]- 2490 Dec, 2014 [facility] [place] [facility] [address] [facility] [id number] [place] [address]- 0971 Dec, 2014 [facility] [place] [facility] [address] [facility] [id number] [place] [address]- 4974 Nov, [facility] [place] [facility] [address] [facility] [id number] [address]- 4642 Nov, [facility] [place] [facility] [address] [id number], [place] [address]- 6812 Nov, [facility] [place] [facility] [address] [facility] [id number] [place] [address]- 5752 Nov, [facility] [place] [facility] [address] [facility] [id number], [place] [address] Nov, [facility] [place] [facility] [address] [facility] [id number], [place] [address] Nov, [facility] [place] [facility] [address] [id number] [place] [id number] Nov, [facility] [place] [facility] [address] [id number] [place] [address] Nov, [facility] [place] [facility] [address] [id number] [place] [address] Nov, [facility] [place] [facility] [address] [id number] [id number] Nov, [facility] [place] [facility] [address] [id number] [place] [address] Nov, [facility] [place] [facility] [address] [id number] [place] [address] Nov, [facility] [place] [facility] [address] [id number] [place] [address] Oct, [facility] [place] [facility] [address] [id number] [place] [address] Oct, [facility] [place] [facility] [address] [id number] [place] [address] Oct, [facility] [place] [facility] [address] [id number] [place] [address] Oct, [facility] [place] [facility] [address] [id number] [place] [address] Oct, [facility] [place] [facility] [address] [id number], [place] [address] 29 Oct, 2014 [facility] [place] [facility] [address] [id number] [place] [address] Oct, [facility] [place] [facility] [address] [id number] [place] [address] Oct, [facility] [place] [facility] [address] [id number] [place] [address] 17 Oct, 2014 [facility] [place] [facility] [address] [id number] [place] [address] Oct, [facility] [place] [facility] [address] [id number] [place] [address] Oct, [facility] [place] [facility] [address] [id number] [place] [address] Oct, [facility] [place] [facility] [address] [id number] [place] [address] Sep, [facility] [place] [facility] [address] [id number] [place] [address] Sep, [facility] [place] [facility] [address] [id number] [place] [address] Sep, [facility] [place] [facility] [address] [id number] [place] [address] Sep, [facility] [place] [facility] [address] [id number] [place] [address] Sep, [facility] [place] [facility] [address] [id number] [place] [address] Sep, [facility] [place] [facility] [address] [id number] [place] [address]61 Sep, [facility] [place] [facility] [address] [facility] [id number] [place] [address] Sep, [facility] [place] [facility] [address] [id number] [place] [address]- [address] Aug, [facility] [place] [facility] [address] [id number] [place] [address] Aug, [facility] [place] [facility] [address] [id number] [place] [address]- 9283 Aug, [facility] [place] [facility] [address] [id number] [place] [address]- [address]125 Aug, [facility] [place] [facility] [address] [id number] [place] [address]- 8832 Aug, [facility] [place] [facility] [address] [id number] [place] [address]- 4479 Aug, [facility] [place] [facility] [address] [id number] [place] [address]- 7769 Aug, [facility] [place] [facility] [address] [id number] [place] [address] Aug, [facility] [place] [facility] [address] [id number] [place] [address]- 7122 Aug, [facility] [place] [facility] [address] [id number] [place] [address]- 9569 Aug, [facility] [place] [facility] [address] [id number] [place] [address]- 5785 Aug, [facility] [place] [facility] [address] [id number] [place] [address]- 4745 Aug, [facility] [place] [facility] [address] [id number] [place] [address]- 4189 Aug, [facility] [place] [facility] [address] [id number] [place] [address]- 7508 Jul, [facility] [place] [facility] [address] [id number] [place] [address]- 3335 Jul, [facility] [place] [facility] [address] [id number] [place] [address]- 4328 Jul, [facility] [place] [facility] [address] [id number] [address] Jul, [facility] [place] [facility] [address] [id number] [place] [address]- 9809 Jun, [facility] [place] [facility] [address] [id number] [place] [address]- 3051 Jun, [facility] [place] [facility] [address] [id number] [place] [address]- 9765 Jun, [facility] [place] [facility] [address] [id number] [place] [address]- 0016 Jun, [facility] [place] [facility] [address] [id number] [place] [address]- 0986 Jun, [facility] [place] [facility] [address] [id number] [place] [address]- 0232 Jun, [facility] [place] [facility] [address] [id number] [place] [address]- 9971 May, [facility] [place] [facility] [address] [id number] [place] [address]- 4202 May, [facility] [place] [facility] [address] [id number] [place] [address]- 4495 May, [facility] [place] [facility] [address] [id number] [place] [address]- 8751 May, [facility] [place] [facility] [address] [id number] [place] [address]- 3233 Apr, [facility] [place] [facility] [address] [id number] [place] [address]- 2308 Apr, [facility] [place] [facility] [address] [id number] [place] [address]- 2589 March, [facility] [place] [facility] [address] [id number] [place] [address]- 1777 March, [facility] [place] [facility] [address] [id number] [place] [address]- 2290 March, [facility] [place] [facility] [address] [id number] [place] [address]- 3343 March, [facility] [place] [facility] [address] [id number] [place] [address]- 4593 March, [facility] [place] [facility] [address] [id number] [place] [address]- 4012 March, [facility] [place] [facility] [address] [id number] [place] [address]- 9276 Feb, [facility] [place] [facility] [address] [id number] [place] [address]- 1333 Feb, [facility] [place] [facility] [address] [id number] [place] [address]- 6285 Dec, [facility] [place] [facility] [address] [id number] [place] [address] Dec, [facility] [place] [facility] [address] [id number] [place] [address]- 9649 Nov, [facility] [place] [facility] [address] [id number] [place] [address]- 9234 Nov, [facility] [place] [facility] [address] [id number] [place] [address]- 5304 Sep, [facility] [place] [facility] [address] [id number] [place] [address]- 0564 Sep, [facility] [place] [facility] [address] [id number] [place] [address]- 5507 Sep, [facility] [place] [facility] [address] [id number] [place] [address]- 7445 Sep, [facility] [place] [facility] [address] [id number] [place] [address]- 2048 Sep, [facility] [place] [facility] [address] [id number] [place] [address]- 7502 Sep, [facility] [place] [facility] [address] [id number] [place] [address]- 1967 Sep, [facility] [place] [facility] [address] [id number] [place] [address]- 0039 Aug, [facility] [place] [facility] [address] [id number] [place] [address]- 3106 Aug, [facility] [place] [facility] [address] [id number] [place] [address]- 2905 Aug, [facility] [place] [facility] [address] [id number] [place] [address] 1811 Aug, [facility] [place] [facility] [address] [id number] [place] [address]- 4380 Aug, [facility] [place] [facility] [address] [id number] [place] [address]- 7616 Aug, [facility] [place] [facility] [address] [id number] [place] [address]- 6620 Jul, [facility] [place] [facility] [address] [id number] [place] [address]- 4020 Jul, [facility] [place] [facility] [address] [id number] [place] [address]- 3460 Jul, [facility] [place] [facility] [address] [id number] [place] [address]- 4922 Jul, [facility] [place] [facility] [address] [id number] [place] [address]- 8483 Jun, [facility] [place] [facility] [address] [id number] [place] [address]- 3413 Jun, [facility] [place] [facility] [address] [id number] [place] [address]- 1095 Jun, [facility] [place] [facility] [address] [id number] [place] [address]- 5412 Jun, [facility] [place] [facility] [address] [id number], [place] [address]- 5884 Jun, [facility] [place] [facility] [address] [id number], [place] [address]- 3180 Jun, [facility] [place] [facility] [address] [id number] [place] [address]- 3818 Jun, [facility] [place] [facility] [address] [id number], [place] [address]- 5483 May, [facility] [place] [facility] [address] [id number] [place] [address]- 0855 May, [facility] [place] [facility] [address] [id number] [place] [address]- 8433 16 May, 2012 [facility] [place] [facility] [address] [id number] [place] [address]- 7822 15 May, 2013 [facility] [place] [facility] [address] [id number] [place] [address]- 8404 13 May, 2013 [facility] [place] [facility] [address] [id number] [place] [address]- 2578 05 May, 2013 [facility] [place] [facility] [address] [id number] [place] [address]- 9591 03 May, 2013 [facility] [place] [facility] [address] [id number] [place] [address]- 7450 28 Apr, 2013 [facility] [place] [facility] [address] [id number] [place] [address]- 9122 27 Apr, 2013 [facility] [place] [facility] [address] [id number] [place] [address]- 0082 27 Apr, 2013 [facility] [place] [facility] [address] [id number] [place] [address]- 6784 26 Apr, 2013 [facility] [place] [facility] [address] [id number] [place] [address]- 7836 20 Apr, 2013 [facility] [place] [facility] [address] [id number] [place] [address]- 4081 18 Apr, 2013 [facility] [place] [facility] [address] [id number] [place] [address]- 4328 18 Apr, 2013 [facility] [place] [facility] [address] [id number] [place] [address]- 9517 18 Apr, 2013 [facility] [place] [facility] [address] [id number] [place] [address]- 7208 17 Apr, 2013 [facility] [place] [facility] [address] [id number] [place] [address]- 9660 14 Apr, 2013 [facility] [place] [facility] [address] [id number] [place] [address]- 0763 14 Apr, 2013 [facility] [place] [facility] [address] [id number] [place] [address]- 9019 Apr, [facility] [address] [id number] [place] [address]- 3975 Apr, [facility] [address] [id number] [place] [address]- 5421 Apr, [facility] [address] [id number] [place] [address]- 1268 Apr, [facility] [address] [id number] [place] [address]- 2258 Apr, [facility] [address] [id number] [place] [address]- 0929 Apr, [facility] [address] [id number] [place] [address]- 2115 Apr, [facility] [address] [id number] [place] [address]- 8544 Apr, [facility] [address] [id number] [place] [address]- 1734 March, [facility] [address] [id number] [place] [address]- 1020 March, [facility] [address] [id number] [place] [address]- 7801 March, [facility] [address] [id number] [place] [address]- 2813 March, [facility] [address] [id number] [place] [address]- 1663 March, [facility] [place] [facility] [address] [id number] [place] [address]- 1633 March, [facility] [address] [id number] [place] [address]- 8444 March, [facility] [address] [id number] [place] [address]- 2546 12 Feb, 2013 [facility] [address] [id number] [place] [address]- 7507 03 Feb, 2013 [facility] [place] [facility] [address] [id number] [place] [address]- 0157 27 Jan, 2013 [facility] [place] [facility] [address] [id number] [place] [address]- 8361 18 Jan, 2013 [facility] [place] [facility] [address] [id number] [place] [address]- 0973 15 Jan, 2013 [facility] [place] [facility] [address] [id number] [place] [address]- 4796 14 Jan, 2013 [facility] [place] [facility] [address] [id number] [place] [address]- 7287 13 Jan, 2013 [facility] [place] [facility] [address] [id number] [place] [address]- 1681 12 Jan, 2013 [facility] [place] [facility] [address] [id number] [place] [address]- 1318 11 Jan, 2013 [facility] [place] [facility] [address] [id number] [place] [address]- 9157 09 Jan, 2013 [facility] [place] [facility] [address] [id number] [place] [address]- 7647 08 Jan, 2013 [facility] [place] [facility] [address] [id number] [place] [address]- 4038 07 Jan, 2013 [facility] [place] [facility] [address] [id number] [place] [address]- 6945 06 Jan, 2013 [facility] [place] [facility] [address] [id number] [place] [address]- 6309 17 Nov, 2012 [facility] [place] [facility] [address] [id number] [place] [address]- 7512 Oct, [facility] [place] [facility] [address] [id number] [place] [address]- 9481 Oct, [facility] [place] [facility] [address] [id number] [place] [address]- 0865 Oct, [facility] [place] [facility] [address] [id number] [place] [address]- 4706 Oct, [facility] [place] [facility] [address] [id number] [place] [address]- 2346 Sep, [facility] [place] [facility] [address] [id number] [place] [address]- 4177 Sep, [facility] [place] [facility] [address] [id number] [place] [address]- 3336 Sep, [facility] [place] [facility] [address] [id number] [place] [address]- 7164 Sep, [facility] [place] [facility] [address] [id number] [place] [address]- 5307 Sep, [facility] [place] [facility] [address] [id number] [place] [address]- 4793 Sep, [facility] [place] [facility] [address] [id number] [place] [address]- 2647 Sep, [facility] [place] [facility] [address] [id number] [place] [address]- 6104 Sep, [facility] [place] [facility] [address] [facility] [id number] [place] [address]- 1637 Sep, [facility] [place] [facility] [address] [id number] [place] [address]- 9772 Sep, [facility] [place] [facility] [address] [id number] [place] [address]- 5940 Sep, [facility] [place] [facility] [address] [id number] [place] [address]- 2658 Aug, [facility] [place] [facility] [address] [id number] [place] [address]- 4901 Aug, [facility] [place] [facility] [address] [id number] [place] [address]- 0231 Aug, [facility] [place] [facility] [address] [id number] [place] [address]- 5888 28 Jul, 2012 [facility] [place] [facility] [address] [id number] [place] [address]- 5159 25 Jul, 2012 [facility] [place] [facility] [address] [id number] [place] [address]- 0625 19 Jul, 2012 [facility] [place] [facility] [address] [id number] [place] [address]- 3229 17 Jul, 2012 [facility] [place] [facility] [address] [id number] [place] [address]- 2692 20 Jun, 2012 [facility] [place] [facility] [address] [id number] [place] [address]- 5076 16 Jun, 2012 [facility] [place] [facility] [address] [id number] [place] [address]- 4065 15 Jun, 2012 [facility] [place] [facility] [address] [id number] [place] [address]- 8579 15 Jun, 2012 [facility] [place] [facility] [address] [id number] [place] [address]- 9825 13 Jun, 2012 [facility] [place] [facility] [address] [id number] [place] [address]- 2661 March, [facility] [place] [facility] [address] [id number] [place] [address]- 6052 04 Feb, 2012 [facility] [place] [facility] [address] [id number], [place] [address]- 0816 28 Jan, 2012 [facility] [place] [facility] [address] [id number] [place] [address]- 7048 27 Jan, 2012 [facility] [place] [facility] [address] [id number] [place] [address]- 8081 22 Jan, 2012 [facility] [place] [facility] [address] [id number] [place] [address]- 6573 14 Jan, 2012 [facility] [place] [facility] [address] [id number], [place] [address]- 8663 14 Jan, 2012 [facility] [address] [id number] [place] [address]- 7171 14 Jan, 2012 [facility] [place] [facility] [address] [id number] [place] [address]- 5306 28 Dec, 2011 [facility] [place] [facility] [address] [id number] [place] [address]- 6566 27 Dec, 2011 [facility] [place] [facility] [address] [id number] [place] [address]- 9799 23 Dec, 2011 [facility] [place] [facility] [address] [id number] [place] 1393 21 Dec, 2011 [facility] [place] [facility] [address] [id number] [place] [address]- 2990 20 Dec, 2011 [facility] [place] [facility] [address] [id number] [place] [address]- 2313 19 Dec, 2011 [facility] [place] [facility] [address] [facility] [id number] [place] [address]- 8577 17 Dec, 2011 [facility] [place] [facility] [id number] [place] [address]- 6706 16 Dec, 2011 [facility] [address] [id number] [place] [address]- 5217 31 Nov, 2011 [facility] [place] [facility] [address] [facility] [id number] [place] [address]- 0062 13 Oct, 2011 [facility] [place] [facility] [address] [id number] [place] [address] 2548 18 Sep, 2011 [facility] [place] [facility] [address] [id number] [place] [address]- 2168 18 Sep, 2011 [facility] [place] [facility] [address] [facility] [id number] [place] [address]- 8426 17 Sep, 2011 [facility] [place] [facility] [address] [facility] [id number] [place] [address]- 0033 Sep, [facility] [place] [facility] [address] [facility] [id number], [place] [address]- 2546 Sep, [facility] [place] [facility] [address] [facility] [id number], [place] [address]- 2546 Sep, [facility] [place] [facility] [address] [facility] [id number], [place] [address]- 2546 Jan, [facility] [place] [facility] [address] [facility] [id number], [place] [address]- 2546 Apr, IMMUNIZATIONS No Known Immunizations SOCIAL HISTORY Never Assessed REASON FOR VISIT Controlled Med Refill PLAN OF CARE VITAL SIGNS MEDICATIONS Medication Instructions Dosage Frequency Start Date End Date Duration Status Remeron 30 MG Orally Once a day at bedtime 1 tablet Oct, 30 Active Lamictal 150 MG Orally Once a day 1 tablet 24h Aug, 30 days Active Abilify 5 mg Orally Once a day 1 tablet 24h Nov, 30 day(s) Active Klonopin 0.5 MG Orally [...]
--- OUTSIDE RECORDS SUMMARY | 2018-08-05 20:31 | XMS REPORT ---
Author Author FLO GONZALEZ [facility] Address [address] [place] [address] Care Team Providers Care Film Coater Name Role Phone BRYANTima FLO Unavailable PROBLEMS Type Condition ICD9-CM Code GXV49-II Code Onset Dates Condition Status SNOMED Code Problem Generalized anxiety disorder F41.1 Active 70112566 Problem Acute non intractable tension-type headache G44.209 Active 073955858 Problem Acute right-sided low back pain with right-sided sciatica M54.41 Active 520221687 Problem Post traumatic stress disorder F43.10 Active 22633534 Problem Bipolar disorder, current episode mixed, moderate F31.62 Active 897553321 Problem Endometriosis N80.9 Active 151765156 Problem Borderline personality disorder F60.3 Active 98349941 ALLERGIES Substance Reaction Event Type Date Status Thioridazine HCl tachycardia Drug Allergy Dec, Active Pristiq Unknown Drug Allergy Dec, Active Penicillin V Potassium rash Drug Allergy Dec, Active Diclofenac Sodium nausea Drug Allergy Dec, Active Depakote fatigue Drug Allergy Dec, Active ENCOUNTERS Encounter Location Date Diagnosis [facility] [id number] [place] [address] 22004- 8055 Jul, [facility] [id number] [place] [address] [id number] Jun, [facility] [id number] [place] [address] 85819- 9257 May, Palpitations R00.2 and Frequent bowel movements R19.4 [facility] [id number] [place] [address] 73697- 1054 May, Bipolar disorder, current episode mixed, moderate F31.62 ; Post traumatic stress disorder F43.10 and Borderline personality disorder F60.3 [facility] [id number] [id number] 15 Apr, 2018 Dental examination Z01.20 [facility] [id number] [place] [address] 50467 -9886 15 Apr, 2018 [facility] [id number] [place] [address] 00140- 8882 15 Apr, 2018 Dental examination Z01.20 [facility] [id number] [place] [address] 66038 -2400 15 Apr, 2018 Tooth pain K08.89 [facility] [id number] [place] [address] 80672- 3605 06 Apr, 2018 Bipolar disorder, current episode mixed, moderate F31.62 ; Post traumatic stress disorder F43.10 and Borderline personality disorder F60.3 [facility] [id number] [place] [address] 81526 -8472 18 Mar, 2018 Abdominal pain R10.9 ; UTI symptoms R39.9 and Other microscopic hematuria R31.29 [facility] [id number] [place] [address] 71196- 9084 March, [facility] [id number] [place] [address] 77359- 0714 09 Mar, 2018 Bipolar disorder, current episode mixed, moderate F31.62 ; Post traumatic stress disorder F43.10 and Borderline personality disorder F60.3 [place] [id number] [place] [address] 64950- 7381 30 Feb, 2018 Encounter for immunization Z23 [facility] [id number] [place] [address] 98490- 6724 16 Feb, 2018 Bipolar disorder, current episode mixed, moderate F31.62 ; Post traumatic stress disorder F43.10 and Borderline personality disorder F60.3 [facility] [id number] [place] [address] 17528- 4633 Feb, Bipolar disorder, current episode mixed, moderate F31.62 ; Post traumatic stress disorder F43.10 ; Borderline personality disorder F60.3 and 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 [facility] [id number] [place] [address] 76477- 4068 Jan, Encounter for immunization Z23 [facility] [id number] [place] [address] 70898- 6527 Jan, [facility] [address] 31909- 4035 Jan, Bipolar disorder, current episode mixed, moderate F31.62 [facility] [id number] [place] [address] 66229 -9475 Jan, Lumbar back pain M54.5 [place] [id number] [place] [address] 53118- 9431 28 Dec, 2017 Low back pain M54.5 [place] [address] 70853- 6347 Dec, Bipolar disorder, current episode mixed, moderate F31.62 [place] [id number] [place] [address] 10664- 1375 Dec, Generalized anxiety disorder F41.1 and Bipolar disorder, current episode mixed, moderate F31.62 [facility] [id number] [place] [address] 62416 -5237 Nov, Acute non intractable tension-type headache G44.209 [facility] [id number] [place] [address] 40409- 6643 Nov, Bipolar disorder, current episode mixed, moderate F31.62 ; Post traumatic stress disorder F43.10 and Borderline personality disorder F60.3 [place] [id number] [place] [address] 23921- 4196 Nov, Bipolar disorder, current episode mixed, moderate F31.62 [facility] [id number] [place] [address] 63833 -6150 Nov, Abdominal pain R10.9 ; History of PCOS Z87.42 ; History of endometriosis Z87.42 and Pelvic pain R10.2 [place] [id number] [place] [address] 34641- 6369 Nov, [facility] [id number] [place] [address] 99930 -3456 Oct, History of PCOS Z87.42 ; History of endometriosis Z87.42 and Pain R52 [facility] [id number] [place] [address] 54227- 0608 Oct, Bipolar disorder, current episode mixed, moderate F31.62 ; Post traumatic stress disorder F43.10 and Borderline personality disorder F60.3 [place] [address] 23971- 4510 Oct, Bipolar disorder, current episode mixed, moderate F31.62 [place] [address] 40923- 6450 Sep, Bipolar disorder, current episode mixed, moderate F31.62 ; Post traumatic stress disorder F43.10 ; Borderline personality disorder F60.3 and Other half-way (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 Z79.899 [place] [address] 42398- 1825 Sep, Bipolar disorder, current episode mixed, moderate F31.62 [facility] [id number] [place] [address] 17945 -0449 Sep, Endometriosis N80.9 and Acute right-sided low back pain with right-sided sciatica M54.41 [place] [id number] [place] [address] 43596- 9398 Aug, [place] [address] 23340- 6815 Aug, Bipolar disorder, current episode mixed, moderate F31.62 ; Post traumatic stress disorder F43.10 and Borderline personality disorder F60.3 [place] [address] 76187- 7243 11 Aug, 2017 Bipolar disorder, current episode mixed, moderate F31.62 ; Post traumatic stress disorder F43.10 and Borderline personality disorder F60.3 [facility] [id number] [place] [address] 02435- 0262 13 Jul, 2017 Bipolar disorder, current episode mixed, moderate F31.62 ; Post traumatic stress disorder F43.10 and Borderline personality disorder F60.3 [facility] [id number] [place] [address] 01677 -1886 11 Jul, 2017 Pharyngitis, unspecified etiology J02.9 and Streptococcal pharyngitis J02.0 [facility] [id number] [place] [address] 67160- 4195 16 Jun, 2017 Bipolar disorder, current episode mixed, moderate F31.62 ; Post traumatic stress disorder F43.10 and Borderline personality disorder F60.3 [place] [id number] [place] [address] 38812- 8904 May, [facility] [id number] [place] [address] 52970- 5668 May, [facility] [id number] [place] [address] 35891- 0215 May, Bipolar disorder, current episode mixed, moderate F31.62 and Generalized anxiety disorder F41.1 [place] [id number] [place] [address] 39999- 6793 March, Bipolar disorder, current episode mixed, moderate F31.62 and Generalized anxiety disorder F41.1 [facility] [id number] [place] [address] 30761- 6147 March, Pelvic pain R10.2 [facility] [id number] [place] [address] 20752- 2120 March, [facility] [id number] [place] [address] 11385- 5186 Feb, Bipolar disorder, current episode mixed, moderate F31.62 and Generalized anxiety disorder F41.1 [facility] [id number] [place] [address] 61553- 8938 Jan, [facility] [address] 267273- 196 Jan, Bipolar disorder, current episode mixed, moderate F31.62 [facility] [address] 88738- 3486 Jan, Bipolar disorder, current episode mixed, moderate F31.62 [facility] [address] 03355- 1210 Jan, Bilateral low back pain without sciatica M54.5 [facility] [address] [id number] Jan, Dental caries K02.9 and Dental examination Z01.20 [facility] [address] [id number] Jan, Encounter for dental examination and cleaning without abnormal findings Z01.20 [facility] [id number] [place] [address] 44680- 7920 Jan, Bipolar disorder, current episode mixed, moderate F31.62 and Generalized anxiety disorder F41.1 [facility] [id number] [place] [address] 60054- 3365 Dec, [facility] [address] 55402- 2788 Dec, Bipolar disorder, current episode mixed, moderate F31.62 and Generalized anxiety disorder F41.1 [facility] [id number] [place] [address] 99050- 7099 Dec, Other fatigue R53.83 and Orthostatic hypotension I95.1 [facility] [id number] [place] [address] [id number] Nov, Dental examination Z01.20 [facility] [address] [id number] -2546 Nov, Bronchitis J40 [facility] [id number] [place] [address] 63505- 6892 Oct, Generalized anxiety disorder F41.1 [facility] [id number] [place] [address] 31967- 8345 14 Sep, 2016 Bipolar disorder, current episode mixed, moderate F31.62 and Generalized anxiety disorder F41.1 [facility] [id number] [place] [address] 29903- 0045 Sep, Bipolar disorder, current episode mixed, moderate F31.62 and Generalized anxiety disorder F41.1 [facility] [id number] [place] [address] 83044 -8464 08 Jul, 2016 Upper respiratory tract infection, unspecified type J06.9 [facility] [id number] [place] [address] 18168- 2753 Jun, Bipolar disorder, current episode mixed, moderate F31.62 and Generalized anxiety disorder F41.1 [place] [id number] [place] [address] 24370- 5897 Apr, [place] [id number] [place] [address] 84787- 5466 Apr, Encounter for test, result positive Z32.01 [facility] [id number] [place] [address] 13119- 0617 March, [facility] [id number] [place] [address] 99096- 0754 March, Bipolar disorder, current episode mixed, moderate F31.62 and Generalized anxiety disorder F41.1 [place] [id number] [place] [address] 54689- 9827 March, Bipolar disorder, current episode mixed, moderate F31.62 and Generalized anxiety disorder F41.1 [facility] [id number] [place] [address] 72127- 7322 March, [facility] [address], [place] [address]- 0600 March, [facility] [id number] [place] [address] 80085- 3339 Feb, [facility] [id number] [place] [address] 67329- 2994 Feb, [facility] [id number] [place] [address] 45807- 8118 Feb, Bipolar disorder, current episode mixed, moderate F31.62 and Generalized anxiety disorder F41.1 [facility] [id number] [place] [address] 10444- 6398 Jan, Abdominal pain R10.9 [facility] [id number] [place] [address] 04239- 8394 Jan, [facility] [id number] [place] [address] 43133- 7178 29 Dec, 2015 Dental examination Z01.20 [facility] [id number] [place] [address] 87390- 1619 Dec, Dental examination Z01.20 and Dental caries K02.9 [facility] [id number] [place] [address] 11529- 5314 15 Dec, 2015 Bipolar disorder, current episode mixed, moderate F31.62 and Generalized anxiety disorder F41.1 [facility] [id number] [place] [address] 34875- 5388 Dec, [facility] [id number] [place] [address] 82402- 2052 Nov, Bipolar disorder, current episode mixed, moderate F31.62 ; Generalized anxiety disorder F41.1 and Seizure-like activity R56.9 [facility] [address], [place] [address]- 8362 Oct, [facility] [id number] [place] [address] 90704- 4561 Oct, Bipolar disorder, current episode mixed, moderate F31.62 [place] [address] 99025- 9901 14 Oct, 2015 Well woman exam Z01.419 [...] Tobacco use Z72.0 and Hot flashes N95.1 [place] [address] 75201- 7998 09 Oct, 2015 Seizure-like activity R56.9 and Irregular periods N92.6 [place] [address] 55479- 6589 07 Oct, 2015 Bipolar disorder, current episode mixed, moderate F31.62 ; Generalized anxiety disorder F41.1 and Underweight R63.6 [place] [id number] [place] [address] 94323- 0825 Oct, [place] [id number] [place] [address] 91942- 6754 Oct, Generalized anxiety disorder F41.1 and Unspecified mood [ affective] disorder F39 [facility] [address] 24096 -1142 Oct, Back pain M54.9 and Anxiety F41.9 [place] [address] 58974- 0947 Oct, [facility] [address] 21873 -4355 Sep, Arm pain, left M79.602 [place] [id number] [place] [address] 27805- 9188 Sep, [facility] [address] [place] [address] [id number] Sep, Dental examination Z01.20 and Dental caries K02.9 [facility] [id number] [place] [address] 77817- 2159 Sep, Generalized anxiety disorder F41.1 and Unspecified episodic mood disorder F39 [facility] [id number] [place] [address] 33436- 2565 Sep, Bilateral low back pain without sciatica M54.5 and Seizure- like activity R56.9 [facility] [address] 72702- 5029 Aug, [facility] [id number] [place] [address] 34016- 6798 Aug, [facility] [id number] [place] [address] 09075- 5383 Aug, [facility] [id number] [place] [address] 50133- 7869 Aug, Visual changes H53.9 and Bilateral low back pain without sciatica M54.5 [facility] [id number] [place] [address] 16751- 6693 Jul, [facility] [id number] [place] [address] 81075- 4731 Jun, Bipolar I disorder, most recent episode (or current) mixed, moderate 296.62 ; Generalized anxiety disorder 300.02 and High risk medication use V58.69 [facility] [id number] [place] [address] 88312- 9660 Jun, [facility] [id number] [place] [address] 90961- 6034 May, [facility] [address] 90068- 1618 May, Bipolar I disorder, most recent episode (or current) mixed, moderate 296.62 and Generalized anxiety disorder 300.02 [facility] [address] [id number] May, Dental examination V72.2 [facility] [address], [place] [address]- 8028 March, Bipolar I disorder, most recent episode (or current) mixed, moderate 296.62 and Generalized anxiety disorder 300.02 [facility] [id number]- 4950 March, [facility] [id number] [place] [address] 49346- 8546 March, [facility] [id number] [place] [address] 38018- 8484 March, Underweight 783.22 ; Hand pain, right 729.5 and Reflux gastritis 535.40 [facility] [address], [place] [address]- 3293 Feb, [facility] [id number] [place] [address] 59229- 4429 Feb, [facility] [id number] [place] [address] 74625- 3164 Jan, [facility] [address], [place] [address]- 7647 18 Jan, 2015 [facility] [id number] [address]- 7167 16 Jan, 2015 [facility] [address]- 3107 16 Jan, 2015 [facility] [id number] [place] [address] 88338455- 0676 Jan, [facility] [address]- 1343 Jan, [facility] [id number] [address]- 6089 05 Jan, 2014 [facility] [place] [facility] [address] [id number] [place] [address]- 5317 05 Jan, 2014 [facility] [place] [facility] [address] [id number] [place] [address]- 6638 04 Jan, 2014 [facility] [place] [facility] [address] [id number] [place] [address]- 9746 04 Jan, 2014 [facility] [place] [facility] [address] [facility] [id number] [place] [address]- 8865 02 Jan, 2014 [facility] [place] [facility] [address] [id number] [place] [address]- 9737 Jan, 2014 [facility] [place] [facility] [address] [facility] [id number] [place] [address]- 4085 20 Dec, 2014 [facility] [place] [facility] [address] [facility] [id number] [place] [address]- 2280 20 Dec, 2014 [facility] [place] [facility] [address] [facility] [id number] [place] [address]- 3028 19 Dec, 2014 [facility] [place] [facility] [address] [facility] [id number] [place] [address]- 6722 19 Dec, 2014 [facility] [place] [facility] [address] [facility] [id number] [place] [address]- 4549 18 Dec, 2014 [facility] [place] [facility] [address] [facility] [id number] [address]- 8541 17 Dec, 2014 [facility] [place] [facility] [address] [facility] [id number] [place] [address]- 1933 17 Dec, 2014 [facility] [place] [facility] [address] [facility] [id number] [place] [address]- 8405 16 Dec, 2014 [facility] [place] [facility] [address] [facility] [id number] [place] [address]- 3444 16 Dec, 2014 [facility] [place] [facility] [address] [facility] [id number] [address]- 1365 Dec, 2014 [facility] [place] [facility] [address] [id number] [place] [address]- 3993 Dec, 2014 [facility] [place] [facility] [address] [id number] [place] [address]- 6946 Dec, 2014 [facility] [place] [facility] [address] [id number] [place] [address]- 0745 Dec, 2014 [facility] [place] [facility] [address] [id number] [place] [address]- 7074 Dec, 2014 [facility] [place] [facility] [address] [id number] [place] [address]- 8134 Dec, 2014 [facility] [place] [facility] [address] [id number] [place] [address]- 1957 Dec, 2014 [facility] [place] [facility] [address] [facility] [id number] [place] [address]- 1712 Dec, 2014 [facility] [place] [facility] [address] [facility] [id number] [place] [address]- 5862 Dec, [facility] [place] [facility] [address] [facility] [id number] [place] [address]- 5611 Dec, 2014 [facility] [place] [facility] [address] [facility] [id number] [place] [address]- 1048 Nov, [facility] [place] [facility] [address] [id number] [place] [address] Nov, [facility] [place] [facility] [address] [id number], [place] [address] Nov, [facility] [place] [facility] [address] [id number] [place] [address] Nov, [facility] [place] [facility] [address] [facility] [id number] [place] [address] Nov, [facility] [place] [facility] [address] [facility] [id number] [place] [address] Nov, [facility] [address] [id number] [place] [id number] Nov, [facility] [place] [facility] [address] [id number] [place] [address] Nov, [facility] [address] [id number] [place] [address] Nov, [facility] [place] [facility] [address] [id number] [place] [id number] Nov, [facility] [place] [facility] [address] [id number] [place] [address] Nov, [facility] [place] [facility] [address] [id number] [place] [address] Nov, [facility] [address] [facility] [id number] [place] [address] Oct, [facility] [place] [facility] [address] [id number] [place] [address] [address] Oct, [facility] [place] [facility] [address] [id number] [place] [address] Oct, [facility] [place] [facility] [address] [id number] [place] Oct, [facility] [place] [facility] [address] [id number] [place] [address] Oct, [facility] [place] [facility] [address] [id number] [place] [address] 29 Oct, 2014 [facility] [place] [facility] [address] [id number] [place] [address] Oct, [facility] [place] [facility] [address] [id number] [place] [address] Oct, [facility] [place] [facility] [address] [id number] [place] [address] 17 Oct, 2014 [facility] [place] [facility] [address] [id number] [place] [address] Oct, [facility] [place] [facility] [address] [id number] [place] [address] Oct, [facility] [place] [facility] [address] [id number] [place] Oct, [facility] [place] [facility] [address] [id number] [place] [address] Sep, [facility] [place] [facility] [address] [id number] [place] [address] Sep, [facility] [place] [facility] [address] [id number] [place] [address] Sep, [facility] [place] [facility] [address] [id number] [place] [address] Sep, [facility] [place] [facility] [address] [address] [id number] [place] [address] Sep, [facility] [place] [facility] [address] [id number] [place] [address] Sep, [facility] [place] [facility] [address] [id number] [place] [address] 2027 Sep, [facility] [place] [facility] [address] [id number] [place] [address]85 Sep, [facility] [place] [facility] [address] [id number] [place] [address] 9514 Aug, [facility] [place] [facility] [address] [id number] [place] [address] 6291 Aug, [facility] [place] [facility] [address] [id number] [place] [address] 8546 Aug, [facility] [place] [facility] [address] [id number] [place] [address] 7204 Aug, [facility] [place] [facility] [address] [id number] [place] [address] 0931 Aug, [facility] [place] [facility] [address] [id number] [place] [address] 8303 Aug, [facility] [place] [facility] [address] [id number] [place] [address]- 9094 Aug, [facility] [place] [facility] [address] [id number] [place] [address] 3173 Aug, [facility] [place] [facility] [address] [id number] [place] [address] 4393 Aug, [facility] [place] [facility] [address] [id number] [place] [address]- 6227 Aug, [facility] [place] [facility] [address] [id number] [place] [address]- 7457 Aug, [facility] [place] [facility] [address] [id number] [place] [address]- 0774 Aug, [facility] [place] [facility] [address] [id number] [place] [address]- 5898 Aug, [facility] [place] [facility] [address] [id number] [place] [address]- 4568 Jul, [facility] [place] [facility] [address] [id number] [place] [address]- 3869 Jul, [facility] [place] [facility] [address] [id number] [place] [address]- 4038 Jul, [facility] [place] [facility] [address] [id number] [place] [address]- 8923 Jul, [facility] [place] [facility] [address] [id number] [place] [address]- 3654 Jun, [facility] [place] [facility] [address] [id number] [place] [address]- 6323 Jun, [facility] [place] [facility] [address] [id number] [place] [address]- 2156 Jun, [facility] [place] [facility] [address] [id number] [place] [address]- 4791 Jun, [facility] [place] [facility] [address] [id number] [place] [address]- 3055 Jun, [facility] [place] [facility] [address] [id number] [place] [address]- 9966 Jun, [facility] [place] [facility] [address] [id number] [place] [address]- 4750 May, [facility] [place] [facility] [address] [id number] [place] [address]- 8648 May, [facility] [place] [facility] [address] [id number] [place] [address]- 8876 May, [facility] [place] [facility] [address] [id number] [place] [address]- 7945 May, [facility] [place] [facility] [address] [id number] [place] [address]- 0508 Apr, [facility] [place] [facility] [address] [id number] [place] [address]- 0917 Apr, [facility] [place] [facility] [address] [id number] [place] [address]- 2479 March, [facility] [place] [facility] [address] [id number] [place] [address]- 0611 March, [facility] [place] [facility] [address] [id number] [place] [address]- 4170 March, [facility] [place] [facility] [address] [id number] [place] [address]- 5376 March, [facility] [place] [facility] [address] [id number] [place] [address]- 5142 March, [facility] [place] [facility] [address] [id number] [place] [address]- 6690 March, [facility] [place] [facility] [address] [id number] [place] [address]- 9494 Feb, [facility] [place] [facility] [address] [id number], [place] [address] Feb, [facility] [place] [facility] [address] [id number] [place] [address]- 6903 Dec, [facility] [place] [facility] [address] [id number] [place] [address]- 7283 Dec, [facility] [place] [facility] [address] [id number] [place] [address]- 1544 Nov, [facility] [place] [facility] [address] [id number] [place] [address]- 2625 Nov, [facility] [place] [facility] [address] [id number] [place] [address]- 3885 Sep, [facility] [place] [facility] [address] [id number] [place] [address]- 6968 Sep, [facility] [place] [facility] [address] [facility] [id number] [place] [address]- 9431 Sep, [facility] [place] [facility] [address] [facility] [id number] [place] [address]- 5857 Sep, [facility] [place] [facility] [address] [facility] [id number] [place] [address]- 5577 Sep, [facility] [place] [facility] [address] [facility] [id number] [place] [address]- 4519 Sep, [facility] [place] [facility] [address] [id number] [place] [address]- 0080 Sep, [facility] [place] [facility] [address] [id number], [place] [address]- 6452 Aug, [facility] [place] [facility] [address] [id number] [place] [address]- 6032 Aug, [facility] [place] [facility] [address] [facility] [id number] [place] [address]- 8062 Aug, [facility] [place] [facility] [address] [facility] [id number], [place] [address]- 6299 Aug, [facility] [place] [facility] [address] [id number] [place] [address]- 3756 Aug, [facility] [place] [facility] [address] [id number] [place] [address]- 7931 Aug, [facility] [place] [facility] [address] [id number] [place] [address]- 4376 Jul, [facility] [place] [facility] [address] [id number] [place] [address]- 3368 Jul, [facility] [place] [facility] [address] [id number] [place] [address]- 5264 16 Jul, 2013 [facility] [place] [facility] [address] [id number] [place] [address]- 5079 Jul, [facility] [place] [facility] [address] [id number] [place] [address]- 4015 Jun, [facility] [place] [facility] [address] [id number] [place] [address]- 6409 Jun, [facility] [place] [facility] [address] [id number] [place] [address]- 4967 Jun, [facility] [place] [facility] [address] [id number] [place] [address]- 9166 Jun, [facility] [place] [facility] [address] [id number] [place] [address]- 3607 Jun, [facility] [place] [facility] [address] [id number] [place] [address]- 7650 Jun, [facility] [place] [facility] [address] [id number] [place] [address]- 9886 Jun, [facility] [place] [facility] [address] [id number] [place] [address]- 9000 May, [facility] [place] [facility] [address] [id number] [place] [address]- 8373 May, [facility] [place] [facility] [address] [id number] [place] [address]- 3877 16 May, 2013 [facility] [place] [facility] [address] [id number] [place] [address]- 1195 15 May, 2013 [facility] [place] [facility] [address] [id number] [place] [address]- 2214 13 May, 2013 [facility] [place] [facility] [address] [id number] [place] [address]- 1782 05 May, 2013 [facility] [place] [facility] [address] [id number] [place] [address]- 5980 03 May, 2013 [facility] [place] [facility] [address] [id number] [place] [address]- 1644 28 Apr, 2013 [facility] [place] [facility] [address] [id number] [place] [address]- 6132 27 Apr, 2013 [facility] [place] [facility] [address] [id number] [place] [address]- 8524 27 Apr, 2013 [facility] [place] [facility] [address] [id number] [place] [address]- 6090 26 Apr, 2013 [facility] [place] [facility] [address] [id number] [place] [address]- 9571 20 Apr, 2013 [facility] [place] [facility] [address] [id number] [place] [address]- 6385 18 Apr, 2013 [facility] [place] [facility] [address] [id number] [place] [address]- 8325 18 Apr, 2013 [facility] [place] [facility] [address] [id number], [place] [address]- 5886 18 Apr, 2013 [facility] [place] [facility] [address] [id number] [place] [address]- 6827 17 Apr, 2013 [facility] [place] [facility] [address] [id number] [place] [address]- 2272 14 Apr, 2013 [facility] [place] [facility] [address] [id number] [place] [address]- 1416 14 Apr, 2013 [facility] [place] [facility] [address] [id number] [place] [address]- 1282 11 Apr, 2013 [facility] [address] [id number] [place] [address]- 8592 Apr, [facility] [address] [id number] [place] [address]- 3429 Apr, [facility] [address] [id number] [place] [address]- 5274 Apr, [facility] [address] [id number] [place] [address]- 1990 Apr, [facility] [address] [id number] [place] [address]- 3996 Apr, [facility] [address] [id number] [place] [address]- 5454 Apr, [facility] [address] [id number] [place] [address]- 2759 Apr, [facility] [address] [id number] [place] [address]- 0755 March, [facility] [address] [id number] [place] [address]- 7516 March, [facility] [address] [id number] [place] [address]- 7968 March, [facility] [address] [id number] [place] [address]- 1457 March, [facility] [address] [id number] [place] [address]- 2841 March, [facility] [address] [id number] [place] [address]- 6975 March, [facility] [address] [id number] [place] [address]- 2725 March, [facility] [address] [id number] [place] [address]- 2149 Feb, [facility] [address] [id number] [place] [address]- 0309 03 Feb, 2013 [facility] [address] [id number] [place] [address]- 7895 27 Jan, 2013 [facility] [address] [id number] [place] [address]- 8371 18 Jan, 2013 [facility] [address] [id number] [place] [address]- 4638 15 Jan, 2013 [facility] [address] [id number] [place] [address]- 1454 14 Jan, 2013 [facility] [address] [id number] [place] [address]- 7904 13 Jan, 2013 [facility] [address] [id number] [place] [address]- 0893 12 Jan, 2013 [facility] [address] [id number] [place] [address]- 2078 11 Jan, 2013 [facility] [address] [id number] [place] [address]- 2349 09 Jan, 2013 [facility] [address] [id number] [place] [address]- 4773 08 Jan, 2013 [facility] [address] [id number] [place] [address]- 9547 07 Jan, 2013 [facility] [address] [id number] [place] [address] 2545 06 Jan, 2013 [facility] [place] [facility] [address] [id number] [place] [address]- 4887 Nov, [facility] [place] [facility] [address] [id number] [place] [address]- 4066 Oct, [facility] [place] [facility] [address] [id number] [place] [address]- 1977 Oct, [facility] [address] [id number], [place] [address]- 5769 Oct, [facility] [place] [facility] [address] [id number] [place] [address]- 5379 Oct, [facility] [place] [facility] [address] [id number], [place] [address]- 2386 Sep, [facility] [place] [facility] [address] [id number] [place] [address]- 1696 Sep, [facility] [place] [facility] [address] [id number], [place] [address]- 6633 Sep, [facility] [place] [facility] [address] [id number] [place] [address]- 4500 Sep, [facility] [place] [facility] [address] [id number] [place] [address]- 9062 Sep, [facility] [place] [facility] [address] [id number] [place] [address]- 3336 Sep, [facility] [place] [facility] [address] [id number] [place] [address]- 2362 Sep, [facility] [place] [facility] [address] [id number], [place] [address]- 4328 Sep, [facility] [place] [facility] [address] [facility] [id number], [place] [address]- 6755 Sep, [facility] [place] [facility] [address] [id number], [place] [address]- 9109 Sep, [facility] [place] [facility] [address] [id number], [place] [address]- 3004 Sep, [facility] [place] [facility] [address] [id number], [place] [address]- 9494 Aug, [facility] [place] [facility] [address] [id number], [place] [address]- 6481 Aug, [facility] [place] [facility] [address] [facility] [id number], [place] [address]- 9695 Aug, [facility] [place] [facility] [address] [id number] [place] [address]- 0306 28 Jul, 2012 [facility] [place] [facility] [address] [id number] [place] [address]- 5166 25 Jul, 2012 [facility] [place] [facility] [address] [id number] [place] [address]- 8246 19 Jul, 2012 [facility] [place] [facility] [address] [id number] [place] [address]- 9996 17 Jul, 2012 [facility] [place] [facility] [address] [id number] [place] [address]- 4974 20 Jun, 2012 [facility] [place] [facility] [address] [id number] [place] [address]- 0802 16 Jun, 2012 [facility] [place] [facility] [address] [id number] [place] [address]- 1819 15 Jun, 2012 [facility] [place] [facility] [address] [id number] [place] [address]- 3537 15 Jun, 2012 [facility] [address] [id number] [place] [address]- 5016 13 Jun, 2012 [facility] [place] [facility] [address] [id number] [place] [address]- 2064 18 Mar, 2012 [facility] [place] [facility] [address] [id number] [place] [address]- 9633 04 Feb, 2012 [facility] [place] [facility] [address] [id number] [place] [address]- 7183 28 Jan, 2012 [facility] [place] [facility] [address] [id number] [place] [address]- 7824 27 Jan, 2012 [facility] [place] [facility] [address] [id number] [place] [address]- 2806 22 Jan, 2012 [facility] [place] [facility] [address] [id number] [place] [address]- 2786 14 Jan, 2012 [facility] [place] [facility] [address] [id number] [place] [address]- 4063 14 Jan, 2012 [facility] [place] [facility] [address] [id number] [place] [address]- 5471 14 Jan, 2012 [facility] [place] [facility] [address] [id number] [place] [address]- 0316 28 Dec, 2011 [facility] [place] [facility] [address] [id number] [place] [address]- 6556 27 Dec, 2011 [facility] [place] [facility] [address] [id number] [place] [address]- 3471 23 Dec, 2011 [facility] [place] [facility] [address] [id number] [place] [address]- 6877 21 Dec, 2011 [facility] [place] [facility] [address] [id number] [place] [address]- 6828 20 Dec, 2011 [facility] [place] [facility] [address] [id number] [place] [address]- 2720 19 Dec, 2011 [facility] [place] [facility] [address] [id number] [place] [address]- 4339 17 Dec, 2011 [facility] [place] [facility] [address] [id number] [place] [address]- 7754 16 Dec, 2011 [facility] [place] [facility] [address] [facility] [id number] [place] [address]- 2098 Nov, [facility] [place] [facility] [address] [id number] [place] [address]- 8691 Oct, [facility] [place] [facility] [address] [id number] [place] [address]- 1657 18 Sep, 2011 [facility] [place] [facility] [address] [id number] [place] [address]- 1317 18 Sep, 2011 [facility] [place] [facility] [address] [id number] [place] [address]- 6676 17 Sep, 2011 [facility] [place] [facility] [address] [facility] [id number] [place] [address]- 9338 17 Sep, 2011 [facility] [place] [facility] [address] [facility] [id number] [place] [address]- 6341 Sep, [facility] [address] [facility] [id number], [place] [address]- 9161 Sep, [facility] [address] [facility] [id number], [place] [address]- 1321 Jan, [facility] [address] [facility] [id number], [place] [address]- 8343 Apr, IMMUNIZATIONS No Known Immunizations SOCIAL HISTORY Never Assessed REASON FOR VISIT back pain, general all over pain, mostly back, does have scoliosis, pt is wanting another MRI to see progression,pt reports last mri in 2012, states hips feel uneven-AHarrymanRN PLAN OF CARE Activity Details Follow Up with specialist 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 Height 66 in 2018-01-10 Weight 127.1 lbs 2018-01-10 Temperature 98.2 degrees Fahrenheit 2018-01-10 Heart Rate 78 bpm 2018-01-10 Respiratory Rate 20 2018-01-10 BMI 20.51 kg/m2 2018-01-10 Blood pressure systolic 100 mmHg 2018-01-10 Blood pressure diastolic 64 mmHg 2018-01-10 MEDICATIONS Medication Instructions Dosage Frequency Start Date End Date Duration Status Oxycodone-Acetaminophen 10-325 MG Orally every 4 hrs 1 tablet as needed 4h Active Lamictal 150 MG Orally Once a day 1 tablet 24h Aug, Active Cyclobenzaprine HCl 10 mg Orally at bedtime as needed 1 tablet as needed Dec, Jan, 28 days Active Klonopin 0.5 MG Orally three times a day as needed 1 tablet Aug, 30 days Active Remeron 30 MG Orally Once a day at bedtime 1 tablet Oct, 30 Active Abilify 5 mg Orally Once a day 1 tablet 24h Nov, 30 day(s) Active RESULTS Name Result Date Reference Range Xray : Spine, Lumbar 2-3 views (IN HOUSE) 2018-01-10 PROCEDURES Procedure Date Ordered Result Body Site X-RAY EXAM OF LOWER SPINE Jan 10, 2018 INSTRUCTIONS MEDICATIONS ADMINISTERED No Known Medications [...]
--- OUTSIDE RECORDS SUMMARY | 2018-08-05 20:33 | XMS REPORT ---
Author Author TOMASZ MARGARITA [facility] Address [address] [place] [address] Care Team Providers Care Mapping Specialist Name Role Phone TOMASZ, MARGARITA Unavailable PROBLEMS Type Condition ICD9-CM Code XNP22-KC Code Onset Dates Condition Status SNOMED Code Problem Generalized anxiety disorder F41.1 Active 06255060 Problem Acute non intractable tension-type headache G44.209 Active 810054719 Problem Acute right-sided low back pain with right-sided sciatica M54.41 Active 556743090 Problem Post traumatic stress disorder F43.10 Active 82265241 Problem Bipolar disorder, current episode mixed, moderate F31.62 Active 590007990 Problem Endometriosis N80.9 Active 588659210 Problem Borderline personality disorder F60.3 Active 42199390 ALLERGIES No Information ENCOUNTERS Encounter Location Date Diagnosis [facility] [id number] [place] [address] 76427- 6657 Apr, [facility] [id number] [place] [address] 38751- 4428 March, Bipolar disorder, current episode mixed, moderate F31.62 ; Post traumatic stress disorder F43.10 and Borderline personality disorder F60.3 [facility] [id number] [place] [address] 48784- 9471 Feb, Encounter for immunization Z23 [facility] [id number] [place] [address] 61364- 5555 Feb, Bipolar disorder, current episode mixed, moderate F31.62 ; Post traumatic stress disorder F43.10 and Borderline personality disorder F60.3 [facility] [id number] [place] [address] 69975- 1014 Feb, Bipolar disorder, current episode mixed, moderate F31.62 ; Post traumatic stress disorder F43.10 ; Borderline personality disorder F60.3 and 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 [place] [address] 44674- 9138 Jan, Encounter for immunization Z23 [facility] [id number] [place] [address] 91888- 1747 Jan, [facility] [address] 84706- 7123 Jan, Bipolar disorder, current episode mixed, moderate F31.62 [facility] [address] 39328 -2306 Jan, Lumbar back pain M54.5 [place] [id number] [place] [address] 35515- 3654 Dec, Low back pain M54.5 [place] [address] 30500- 4243 Dec, Bipolar disorder, current episode mixed, moderate F31.62 [place] [address] 09538- 8429 Dec, Generalized anxiety disorder F41.1 and Bipolar disorder, current episode mixed, moderate F31.62 [facility] [id number] [place] [address] 86832 -8688 Nov, Acute non intractable tension-type headache G44.209 [facility] [id number] [place] [address] 45639- 5806 Nov, Bipolar disorder, current episode mixed, moderate F31.62 ; Post traumatic stress disorder F43.10 and Borderline personality disorder F60.3 [place] [id number] [place] [address] 43772- 6280 Nov, Bipolar disorder, current episode mixed, moderate F31.62 [facility] [id number] [place] [address] 59292 -8861 Nov, Abdominal pain R10.9 ; History of PCOS Z87.42 ; History of endometriosis Z87.42 and Pelvic pain R10.2 [facility] [address] [id number]- 8997 Nov, [facility] [id number] [place] [address] -[address]83 Oct, History of PCOS Z87.42 ; History of endometriosis Z87.42 and Pain R52 [facility] [address] 189413- 0679 Oct, Bipolar disorder, current episode mixed, moderate F31.62 ; Post traumatic stress disorder F43.10 and Borderline personality disorder F60.3 [place] [address] 25594- 2875 Oct, Bipolar disorder, current episode mixed, moderate F31.62 [place] [address] 87496- 8949 Sep, Bipolar disorder, current episode mixed, moderate F31.62 ; Post traumatic stress disorder F43.10 ; Borderline personality disorder F60.3 and Other residential (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 Z79.899 [place] [address] 64559- 7759 Sep, Bipolar disorder, current episode mixed, moderate F31.62 [facility] IN [facility] [id number] [place] [address] 56488 -5753 Sep, Endometriosis N80.9 and Acute right-sided low back pain with right-sided sciatica M54.41 [place] [id number] [place] [address] 16570- 1442 Aug, [place] [address] 80316- 7542 Aug, Bipolar disorder, current episode mixed, moderate F31.62 ; Post traumatic stress disorder F43.10 and Borderline personality disorder F60.3 [place] [address] [place] [address]- 4804 11 Aug, 2017 Bipolar disorder, current episode mixed, moderate F31.62 ; Post traumatic stress disorder F43.10 and Borderline personality disorder F60.3 [facility] [address] [place] [address] 53796- 2930 13 Jul, 2017 Bipolar disorder, current episode mixed, moderate F31.62 ; Post traumatic stress disorder F43.10 and Borderline personality disorder F60.3 [facility] [address] [place] [address] 48535 -9487 11 Jul, 2017 Pharyngitis, unspecified etiology J02.9 and Streptococcal pharyngitis J02.0 [facility] [id number] [place] [address] 53649- 0384 16 Jun, 2017 Bipolar disorder, current episode mixed, moderate F31.62 ; Post traumatic stress disorder F43.10 and Borderline personality disorder F60.3 [place] [id number] [place] [address] 48178- 4589 May, [place] [facility] [id number] [place] [address] 80877- 3691 May, [place] [id number] [place] [address] 50612- 0783 May, Bipolar disorder, current episode mixed, moderate F31.62 and Generalized anxiety disorder F41.1 [place] [facility] [id number] [place] [address] 10978- 8059 March, Bipolar disorder, current episode mixed, moderate F31.62 and Generalized anxiety disorder F41.1 [facility] [id number] [place] [address] 91190- 2295 March, Pelvic pain R10.2 [facility] [id number] [place] [address] 18668- 6075 March, [facility] [id number] [place] [address] 06789- 3444 05 Feb, 2017 Bipolar disorder, current episode mixed, moderate F31.62 and Generalized anxiety disorder F41.1 [facility] [id number] [place] [address] 49627- 5668 Jan, [facility] [id number] [place] [address]- 4859 Jan, Bipolar disorder, current episode mixed, moderate F31.62 [facility] [id number] [place] [address] 3861 Jan, Bipolar disorder, current episode mixed, moderate F31.62 [facility] [id number] [place] [address] 09077- 6078 Jan, Bilateral low back pain without sciatica M54.5 [facility] [address] [id number] Jan, Dental caries K02.9 and Dental examination Z01.20 [facility] [address] [id number] Jan, Encounter for dental examination and cleaning without abnormal findings Z01.20 [facility] [id number] [place] [address] 52919- 5818 Jan, Bipolar disorder, current episode mixed, moderate F31.62 and Generalized anxiety disorder F41.1 [facility] [id number] [place] [address] 96647- 6484 Dec, [facility] [id number] [place] [address] 93270- 2857 Dec, Bipolar disorder, current episode mixed, moderate F31.62 and Generalized anxiety disorder F41.1 [facility] [id number] [place] [address] 16968- 5192 Dec, Other fatigue R53.83 and Orthostatic hypotension I95.1 [facility] [id number] [place] [address] [id number] Nov, Dental examination Z01.20 [facility] [id number] [place] [address] 97942 -4891 02 Nov, 2016 Bronchitis J40 [facility] [id number] [place] [address] 66921- 2844 Oct, Generalized anxiety disorder F41.1 [facility] [id number] [place] [address] 93639- 2490 14 Sep, 2016 Bipolar disorder, current episode mixed, moderate F31.62 and Generalized anxiety disorder F41.1 [place] [id number] [place] [address] 47897- 9283 02 Sep, 2016 Bipolar disorder, current episode mixed, moderate F31.62 and Generalized anxiety disorder F41.1 [facility] [id number] [place] [address] 40482 -7012 08 Jul, 2016 Upper respiratory tract infection, unspecified type J06.9 [place] [id number] [place] [address] 37995- 1081 Jun, Bipolar disorder, current episode mixed, moderate F31.62 and Generalized anxiety disorder F41.1 [place] [id number] [place] [address] 79635- 9593 Apr, [place] [id number] [place] [address] 64919- 3369 Apr, Encounter for test, result positive Z32.01 [place] [id number] [place] [address] 38420- 6265 March, [place] [id number] [place] [address] 48668- 8919 March, Bipolar disorder, current episode mixed, moderate F31.62 and Generalized anxiety disorder F41.1 [place] [id number] [place] [address] 78289- 7046 March, Bipolar disorder, current episode mixed, moderate F31.62 and Generalized anxiety disorder F41.1 [place] [id number] [place] [address] 63375- 2248 March, [facility] [address] [address]- 0315 March, [facility] [id number] [place] [address] 04856- 7348 Feb, [facility] [address] [place] [address] 85727- 5627 Feb, [facility] [id number] [place] [address] 37771- 4380 Feb, Bipolar disorder, current episode mixed, moderate F31.62 and Generalized anxiety disorder F41.1 [facility] [id number] [place] [address] 34588- 6819 Jan, Abdominal pain R10.9 [facility] [id number] [place] [address] 83032- 1127 Jan, [facility] [id number] [place] [address] 12314- 4069 29 Dec, 2015 Dental examination Z01.20 [facility] [id number] [place] [address] 70879- 8262 22 Dec, 2015 Dental examination Z01.20 and Dental caries K02.9 [facility] [address] [place] [address] 82967- 8509 15 Dec, 2015 Bipolar disorder, current episode mixed, moderate F31.62 and Generalized anxiety disorder F41.1 [facility] [address] [place] [address] 24930- 7554 Dec, [facility] [address] [place] [address] 16045- 0220 Nov, Bipolar disorder, current episode mixed, moderate F31.62 ; Generalized anxiety disorder F41.1 and Seizure-like activity R56.9 [facility] [address] [address]- 1660 Oct, [facility] [address] 81238- 1889 Oct, Bipolar disorder, current episode mixed, moderate F31.62 [place] [address] 54510- 2843 14 Oct, 2015 Well woman exam Z01.419 [...] Tobacco use Z72.0 and Hot flashes N95.1 [place] [address] 97848- 4015 09 Oct, 2015 Seizure-like activity R56.9 and Irregular periods N92.6 [place] [address] 86179- 8123 07 Oct, 2015 Bipolar disorder, current episode mixed, moderate F31.62 ; Generalized anxiety disorder F41.1 and Underweight R63.6 [place] [address] 12618- 2461 Oct, [place] [address] 65335- 5093 Oct, Generalized anxiety disorder F41.1 and Unspecified mood [ affective] disorder F39 [facility] [address] 57202 -0777 Oct, Back pain M54.9 and Anxiety F41.9 [place] [address] 27166- 6372 Oct, [facility] [address] 36302 -8465 Sep, Arm pain, left M79.602 [place] [id number] [place] [address] 12009- 0051 Sep, [facility] [id number] [place] [address] [id number] Sep, Dental examination Z01.20 and Dental caries K02.9 [facility] [id number] [place] [address] 56120- 6446 Sep, Generalized anxiety disorder F41.1 and Unspecified episodic mood disorder F39 [facility] [id number] [place] [address] 49322- 3201 Sep, Bilateral low back pain without sciatica M54.5 and Seizure- like activity R56.9 [facility] [id number] [place] [address] 04059- 6968 Aug, [facility] [id number] [place] [address] 89871- 5643 Aug, [facility] [id number] [place] [address] 84211- 8501 Aug, [facility] [id number] [place] [address] 22562- 9753 Aug, Visual changes H53.9 and Bilateral low back pain without sciatica M54.5 [facility] [id number] [place] [address] 81611- 3986 Jul, [facility] [id number] [place] [address] 66139- 8626 Jun, Bipolar I disorder, most recent episode (or current) mixed, moderate 296.62 ; Generalized anxiety disorder 300.02 and High risk medication use V58.69 [facility] [id number] [place] [address] 42518- 7810 Jun, [facility] [id number] [place] [address] 15638- 2931 May, [facility] [address] 67210- 1328 May, Bipolar I disorder, most recent episode (or current) mixed, moderate 296.62 and Generalized anxiety disorder 300.02 [facility] [address] [id number] May, Dental examination V72.2 [facility] [address] [place] [address] 66762- 1108 March, Bipolar I disorder, most recent episode (or current) mixed, moderate 296.62 and Generalized anxiety disorder 300.02 [facility] [address] [place] [address] 135012- 5328 March, [facility] [id number] [place] [address] 88491- 5167 March, [facility] [id number] [place] [address] 16143- 3303 March, Underweight 783.22 ; Hand pain, right 729.5 and Reflux gastritis 535.40 [facility] [address] [address]- 7781 Feb, [facility] [id number] [place] [address] 04619- 0412 Feb, [facility] [id number] [place] [address] 52199- 7341 18 Jan, 2015 [facility] [id number] [place] [address] 32023- 6650 18 Jan, 2015 [facility] [address] [place] [address] 38419- 6395 16 Jan, 2015 [facility] [id number] [place] [address] 03134- 3710 16 Jan, 2015 [facility] [id number] [place] [address] [id number]- 4080 13 Jan, 2015 [facility] [address] [place] [address] 25010- 2696 Jan, [facility] [place] [facility] [address] [id number] [place] [address]- 4816 05 Jan, 2014 [facility] [place] [facility] [address] [id number] [place] [address]- 0025 05 Jan, 2014 [facility] [place] [facility] [address] [id number] [place] [address]- 0181 04 Jan, 2014 [facility] [place] [facility] [address] [id number] [place] [address]- 0249 04 Jan, 2014 [facility] [place] [facility] [address] [id number] [place] [address]- 2361 02 Jan, 2014 [facility] [place] [facility] [address] [id number] [place] [address]- 4776 Jan, 2014 [facility] [place] [facility] [address] [facility] [id number] [place] [address]- 7403 20 Dec, 2014 [facility] [place] [facility] [address] [id number] [place] [address]- 5777 20 Dec, 2014 [facility] [place] [facility] [address] [id number] [place] [address]- 0952 19 Dec, 2014 [facility] [place] [facility] [address] [facility] [id number] [place] [address]- 8732 19 Dec, 2014 [facility] [place] [facility] [address] [facility] [id number] [place] [address]- 5538 18 Dec, 2014 [facility] [place] [facility] [address] [id number] [place] [address]- 2882 17 Dec, 2014 [facility] [place] [facility] [address] [id number] [place] [address]- 1460 17 Dec, 2014 [facility] [place] [facility] [address] [id number] [place] [address]- 1016 16 Dec, 2014 [facility] [place] [facility] [address] [facility] [id number] [place] [address]- 6987 16 Dec, 2014 [facility] [place] [facility] [address] [facility] [id number] [place] [address]- 3321 Dec, 2014 [facility] [place] [facility] [address] [id number] [place] [address]- 7605 Dec, 2014 [facility] [place] [facility] [address] [id number] [place] [address]- 3776 Dec, 2014 [facility] [place] [facility] [address] [id number] [place] [address]- 2349 Dec, 2014 [facility] [place] [facility] [address] [id number] [place] [address]- 1104 Dec, 2014 [facility] [place] [facility] [address] [id number] [place] [address]- 2695 Dec, 2014 [facility] [place] [facility] [address] [id number] [place] [address]- 2966 Dec, 2014 [facility] [place] [facility] [address] [id number] [place] [address]- 0615 Dec, 2014 [facility] [place] [facility] [address] [id number] [place] [address]- 0912 Dec, 2014 [facility] [place] [facility] [address] [facility] [id number] [place] [address]- 7518 Dec, 2014 [facility] [place] [facility] [address] [facility] [id number] [place] [address]- 2833 Nov, [facility] [place] [facility] [address] [facility] [id number] [place] [address]- 6365 Nov, [facility] [place] [facility] [address] [id number] [place] [address]- 2540 Nov, [facility] [place] [facility] [address] [id number] [place] [address]- 5833 Nov, [facility] [place] [facility] [address] [facility] [id number] [place] [address]- 2543 Nov, [facility] [place] [facility] [address] [facility] [id number] [place] [address]- 2131 Nov, [facility] [place] [facility] [address] [facility] [id number] [place] [id number] Nov, [facility] [place] [facility] [address] [id number] [place] [address]- 0136 Nov, [facility] [place] [facility] [address] [facility] [id number] [place] [address]- 6121 Nov, [facility] [place] [facility] [address] [id number] [place] [id number] Nov, [facility] [place] [facility] [address] [id number] [place] [address]- 5873 Nov, [facility] [place] [facility] [address] [id number] [place] [address]- 8832 Nov, [facility] [place] [facility] [address] [facility] [id number] [place] 1371 Oct, [facility] [place] [facility] [address] [id number], [place] [address]- 7292 Oct, [facility] [place] [facility] [address] [facility] [id number] [place] [address]- 3214 Oct, [facility] [place] [facility] [address] [facility] [id number], [place] [address]- 3337 Oct, [facility] [place] [facility] [address] [facility] [id number], [place] [address]- 3354 Oct, [facility] [place] [facility] [address] [id number] 5056 29 Oct, 2014 [facility] [place] [facility] [address] [id number] [place] 4042 Oct, [facility] [place] [facility] [address] [id number] [place] 7087 Oct, [facility] [place] [facility] [address] [facility] [id number], [place] [address]- 0499 17 Oct, 2014 [facility] [place] [facility] [address] [id number], [place] [address]- 0576 Oct, [facility] [place] [facility] [address] [id number] [place] [address]- 1674 Oct, [facility] [place] [facility] [address] [facility] [id number], [place] [address]- 5481 Oct, [facility] [place] [facility] [address] [facility] [id number] [place] [address]- 57[address] Sep, [facility] [place] [facility] [address] [id number] [place] [address] Sep, [facility] [place] [facility] [address] [facility] [id number] [place] [address] Sep, [facility] [place] [facility] [address] [facility] [id number] [place] [address] Sep, [facility] [place] [facility] [address] [facility] [id number], [place] [address] Sep, [facility] [place] [facility] [address] [facility] [id number] [place] [address] Sep, [facility] [place] [facility] [address] [facility] [id number] [place] [address] Sep, [facility] [place] [facility] [address] [facility] [id number], [place] [address] Sep, [facility] [place] [facility] [address] [facility] [id number], [place] [address] Aug, [facility] [place] [facility] [address] [id number], [place] [address] Aug, [facility] [place] [facility] [address] [id number], [place] [address] Aug, [facility] [place] [facility] [address] [facility] [id number], [place] [address] Aug, [facility] [place] [facility] [address] [facility] [id number], [place] [address] Aug, [facility] [place] [facility] [address] [id number] [place] [address] 10 Aug, 2014 [facility] [place] [facility] [address] [id number] [place] [address] Aug, [facility] [place] [facility] [address] [id number] [place] [address] Aug, [facility] [place] [facility] [address] [id number] [place] [address] Aug, 2013 [facility] [place] [facility] [address] [id number] [place] [address] Aug, 2013 [facility] [place] [facility] [address] [id number] [place] [address] Aug, [facility] [place] [facility] [address] [id number] [place] [address] Aug, [facility] [place] [facility] [address] [id number] [place] [address] Aug, [facility] [place] [facility] [address] [id number] [place] [address] Jul, [facility] [place] [facility] [address] [id number] [place] [address] Jul, [facility] [place] [facility] [address] [id number] [place] [address] Jul, [facility] [place] [facility] [address] [id number] [place] [address] Jul, [facility] [place] [facility] [address] [id number] [place] [address] Jun, [facility] [place] [facility] [address] [id number] [place] [address] Jun, [facility] [place] [facility] [address] [id number] [place] [address] Jun, [facility] [place] [facility] [address] [id number] [place] [address] Jun, [facility] [place] [facility] [address] [id number] [place] [address] Jun, [facility] [place] [facility] [address] [id number] [place] [address] 2404 Jun, [facility] [place] [facility] [address] [id number] [place] [address] May, [facility] [place] [facility] [address] [id number] [place] [address] 4[address] May, [facility] [place] [facility] [address] [id number] [place] [address] 1165 May, [facility] [place] [facility] [address] [id number] [place] [address] 5447 May, [facility] [place] [facility] [address] [id number] [place] [address] 7472 Apr, [facility] [place] [facility] [address] [id number] [place] [address] 0695 Apr, [facility] [place] [facility] [address] [id number] [place] [address] 4190 March, [facility] [place] [facility] [address] [id number] [place] [address] 2367 March, [facility] [place] [facility] [address] [id number] [place] [address] 5781 March, [facility] [place] [facility] [address] [id number] [place] [address] 3586 March, [facility] [place] [facility] [address] [id number] [place] [address]- 1615 March, [facility] [place] [facility] [address] [id number] [place] [address] 7820 March, [facility] [place] [facility] [address] [id number] [place] [address] Feb, [facility] [place] [facility] [address] [id number] [place] [address] 7191 Feb, [facility] [address] [id number] [place] [address]- 6518 Dec, [facility] [place] [facility] [address] [id number] [place] [address]- 7253 Dec, [facility] [address] [id number] [place] [address]- 6649 Nov, [facility] [place] [facility] [address] [id number] [place] [address]- 5846 Nov, [facility] [address] [id number] [place] [address]- 7785 Sep, [facility] [address] [id number] [place] [address]- 2293 Sep, [facility] [address] [id number] [place] [address]- 5117 Sep, [facility] [address] [id number] [place] [address]- 8936 Sep, [facility] [place] [facility] [address] [id number] [place] [address]- 7284 Sep, [facility] [address] [facility] [id number] [place] [address]- 8992 Sep, [facility] [place] [facility] [address] [id number] [place] [address]- 1738 Sep, [facility] [place] [facility] [address] [id number] [place] [address] 8528 Aug, [facility] [place] [facility] [address] [id number] [place] [address] 3261 Aug, [facility] [place] [facility] [address] [id number] [place] [address] 7986 Aug, [facility] [place] [facility] [address] [id number] [place] [address]- 2090 Aug, [facility] [place] [facility] [address] [id number] [place] [address]- 2726 Aug, [facility] [place] [facility] [address] [id number] [place] [address]- 3234 Aug, [facility] [place] [facility] [address] [id number] [place] [address]- 7960 Jul, [facility] [place] [facility] [address] [id number] [place] [address] 4037 Jul, [facility] [place] [facility] [address] [id number] [place] [address]- 8981 16 Jul, 2013 [facility] [place] [facility] [address] [id number] [place] [address]- 4063 Jul, [facility] [place] [facility] [address] [id number] [place] [address]- 6864 Jun, [facility] [place] [facility] [address] [id number] [place] [address]- 6747 Jun, [facility] [place] [facility] [address] [id number] [place] [address]- 7911 Jun, [facility] [place] [facility] [address] [id number] [place] [address]- 9879 Jun, [facility] [place] [facility] [address] [id number] [place] [address]- 6030 Jun, [facility] [place] [facility] [address] [id number], [place] [address] Jun, [facility] [place] [facility] [address] [id number] [place] [address]- 9774 Jun, [facility] [place] [facility] [address] [id number] [place] [address]- 2459 May, [facility] [place] [facility] [address] [id number] [place] [address]- 0104 May, [facility] [place] [facility] [address] [id number] [place] [address]- 5104 16 May, 2013 [facility] [place] [facility] [address] [id number] [place] [address]- 6900 15 May, 2013 [facility] [place] [facility] [address] [id number] [place] [address]- 0666 13 May, 2013 [facility] [place] [facility] [address] [id number] [place] [address]- 0470 05 May, 2013 [facility] [place] [facility] [address] [id number] [place] [address]- 3245 03 May, 2013 [facility] [place] [facility] [address] [id number] [place] [address]- 6562 28 Apr, 2013 [facility] [place] [facility] [address] [id number] [place] [address]- 0391 27 Apr, 2013 [facility] [place] [facility] [address] [id number] [place] [address]- 5485 27 Apr, 2013 [facility] [place] [facility] [address] [id number] [place] [address]- 2076 26 Apr, 2013 [facility] [place] [facility] [address] [id number] [place] [address]- 0793 20 Apr, 2013 [facility] [place] [facility] [address] [id number] [place] [address] 2780 18 Apr, 2013 [facility] [place] [facility] [address] [id number] [place] [address]- 9137 18 Apr, 2013 [facility] [place] [facility] [address] [id number] [place] [address]- 6913 18 Apr, 2013 [facility] [place] [facility] [address] [id number] [place] [address]- 1259 17 Apr, 2013 [facility] [place] [facility] [address] [id number] [place] [address]- 7370 14 Apr, 2013 [facility] [place] [facility] [address] [id number] [place] [address]- 9743 14 Apr, 2013 [facility] [place] [facility] [address] [id number] [place] [address]- 7981 11 Apr, 2013 [facility] [address] [id number] [place] [address] 8422 Apr[facility] [address] [id number] [place] [address] 5531 Apr, [facility] [address] [id number] [place] [address]- 4146 Apr, [facility] [address] [id number] [place] [address]- 5179 Apr, [facility] [address] [id number] [place] [address]- 5309 Apr, [facility] [address] [id number] [place] [address]- 9663 Apr, [facility] [address] [id number] [place] [address]- 1198 Apr, [facility] [address] [id number] [place] [address]- 4538 March, [facility] [address] [id number] [place] [address]- 2117 March, [facility] [address] [id number] [place] [address]- 8070 March, [facility] [address] [id number] [place] [address]- 5398 March, [facility] [address] [id number] [place] [address]- 0501 March, [facility] [place] [facility] [address] [id number] [place] [address]- 5952 March, [facility] [place] [facility] [address] [id number] [place] [address]- 8146 March, [facility] [place] [facility] [address] [id number] [place] [address]- 9499 Feb, [facility] [address] [id number] [place] [address]- 0373 03 Feb, 2013 [facility] [place] [facility] [address] [id number] [place] [address]- 5845 27 Jan, 2013 [facility] [place] [facility] [address] [id number] [place] [address]- 0174 18 Jan, 2013 [facility] [place] [facility] [address] [id number] [place] [address]- 1156 15 Jan, 2013 [facility] [address] [id number] [place] [address]- 0551 14 Jan, 2013 [facility] [place] [facility] [address] [id number] [place] [address]- 1830 13 Jan, 2013 [facility] [place] [facility] [address] [id number] [place] [address]- 8590 12 Jan, 2013 [facility] [place] [facility] [address] [id number] [place] [address]- 3002 11 Jan, 2013 [facility] [place] [facility] [address] [id number] [place] [address]- 6212 09 Jan, 2013 [facility] [place] [facility] [address] [id number] [place] [address]- 4239 08 Jan, 2013 [facility] [place] [facility] [address] [id number] [place] [address]- 5519 07 Jan, 2013 [facility] [place] [facility] [address] [id number] [place] [address]- 7043 06 Jan, 2013 [facility] [place] [facility] [address] [id number] [place] [address]- 7638 17 Nov, 2012 [facility] [place] [facility] [address] [id number] [place] [address]- 7536 Oct, [facility] [place] [facility] [address] [id number] [place] [address]- 0910 Oct, [facility] [place] [facility] [address] [id number] [place] [address]- 3856 Oct, [facility] [place] [facility] [address] [id number] [place] [address]- 9496 Oct, [facility] [place] [facility] [address] [id number] [place] [address]- 6536 Sep, [facility] [place] [facility] [address] [id number] [place] [address]- 4382 Sep, [facility] [place] [facility] [address] [id number] [place] [address]- 8672 Sep, [facility] [place] [facility] [address] [id number] [place] [address]- 0720 Sep, [facility] [place] [facility] [address] [id number] [place] [address]- 4194 Sep, [facility] [place] [facility] [address] [id number] [place] [address]- 0685 Sep, [facility] [place] [facility] [address] [id number] [place] [address]- 4646 Sep, [facility] [place] [facility] [address] [id number] [place] [address]- 9847 Sep, [facility] [place] [facility] [address] [facility] [id number] [place] [address]- 6951 Sep, [facility] [place] [facility] [address] [id number] [place] [address]- 6378 Sep, [facility] [place] [facility] [address] [id number], [place] [address]- 7155 Sep, [facility] [place] [facility] [address] [id number] [place] [address]- 0843 Aug, [facility] [place] [facility] [address] [id number] [place] [address]- 6474 Aug, [facility] [place] [facility] [address] [facility] [id number], [place] [address]- 2742 Aug, [facility] [place] [facility] [address] [id number] [place] [address]- 4200 28 Jul, 2012 [facility] [place] [facility] [address] [id number] [place] [address]- 7756 25 Jul, 2012 [facility] [place] [facility] [address] [id number] [place] [address] 2546 19 Jul, 2012 [facility] [place] [facility] [address] [id number] [place] [address]- 8466 17 Jul, 2012 [facility] [place] [facility] [address] [id number] [place] [address]- 8376 20 Jun, 2012 [facility] [place] [facility] [address] [id number] [place] [address]- 4600 16 Jun, 2012 [facility] [place] [facility] [address] [id number] [place] [address]- 8311 15 Jun, 2012 [facility] [place] [facility] [address] [id number] [place] [address]- 9285 15 Jun, 2012 [facility] [place] [facility] [address] [id number] [place] [address]- 9912 13 Jun, 2012 [facility] [place] [facility] [address] [id number] [place] [address]- 3010 March, [facility] [place] [facility] [address] [id number] [place] [address]- 0886 04 Feb, 2012 [facility] [place] [facility] [address] [id number] [place] [address]- 1478 28 Jan, 2012 [facility] [place] [facility] [address] [id number] [place] [address]- 7838 27 Jan, 2012 [facility] [place] [facility] [address] [id number] [place] [address]- 2813 22 Jan, 2012 [facility] [place] [facility] [address] [id number] [place] [address]- 7559 14 Jan, 2012 [facility] [place] [facility] [address] [id number] [place] [address]- 7101 14 Jan, 2012 [facility] [address] [id number] [place] [address]- 0430 14 Jan, 2012 [facility] [place] [facility] [address] [id number] [place] [address]- 4076 28 Dec, 2011 [facility] [place] [facility] [address] [facility] [id number] [place] [address]- 0436 27 Dec, 2011 [facility] [place] [facility] [address] [id number] [place] [address]- 7320 23 Dec, 2011 [facility] [place] [facility] [address] [id number] [place] [address]- 8516 21 Dec, 2011 [facility] [place] [facility] [address] [facility] [id number] [place] [address]- 5165 20 Dec, 2011 [facility] [id number] [place] [address]- 9630 19 Dec, 2011 [facility] [place] [facility] [address] [facility] [id number] [place] [address]- 6903 17 Dec, 2011 [facility] [place] [facility] [address] [facility] [id number] [place] [address]- 3098 16 Dec, 2011 [facility] [place] [facility] [address] [facility] [id number] [place] [address]- 0562 Nov, [facility] [place] [facility] [address] [facility] [id number] [place] [address]- 4432 13 Oct, 2011 [facility] [place] [facility] [address] [id number] [place] [address]- 3347 18 Sep, 2011 [facility] [place] [facility] [address] [id number] [place] [address]- 3964 18 Sep, 2011 [facility] [place] [facility] [address] [facility] [id number] [place] [address]- 5964 17 Sep, 2011 [facility] [place] [facility] [address] [facility] [id number] [place] [address]- 8105 17 Sep, 2011 [facility] [place] [facility] [address] [facility] [id number] [place] [address]- 1456 Sep, [facility] [address] [facility] [id number], [place] [address]- 6881 Sep, [facility] [address] [facility] [id number], [place] [address]- 7845 Jan, [facility] [address] [facility] [id number], [place] [address]- 7922 Apr, IMMUNIZATIONS No Known Immunizations SOCIAL HISTORY [...]
--- OUTSIDE RECORDS SUMMARY | 2018-08-05 20:34 | XMS REPORT ---
Author Author [facility] Address [address] [place] [address] Care Team Providers Care [place]. Representative Name Role Phone KAREN COLIN Unavailable PROBLEMS Type Condition ICD9-CM Code MFG68-LD Code Onset Dates Condition Status SNOMED Code Problem Generalized anxiety disorder F41.1 Active 49796916 Problem Acute non intractable tension-type headache G44.209 Active 652060320 Problem Acute right-sided low back pain with right-sided sciatica M54.41 Active 148619601 Problem Post traumatic stress disorder F43.10 Active 47259212 Problem Bipolar disorder, current episode mixed, moderate F31.62 Active 590104240 Problem Endometriosis N80.9 Active 813190037 Problem Borderline personality disorder F60.3 Active 22197026 ALLERGIES Substance Reaction Event Type Date Status Thioridazine HCl tachycardia Drug Allergy Nov, Active Pristiq Unknown Drug Allergy Nov, Active Penicillin V Potassium rash Drug Allergy Nov, Active Diclofenac Sodium nausea Drug Allergy Nov, Active Depakote fatigue Drug Allergy Nov, Active ENCOUNTERS Encounter Location Date Diagnosis [facility] [id number] [place] [address]607- 2003 May, [facility] [id number] [place] [address] [id number] Apr, Dental examination Z01.20 [facility] [id number] [place] [address] 26948 -8701 Apr, [facility] [id number] [place] [address] 84621- 2255 Apr, Dental examination Z01.20 [facility] [id number] [place] [address] 69877 -3831 Apr, Tooth pain K08.89 [place] [address], [place] [address] Apr, Bipolar disorder, current episode mixed, moderate F31.62 ; Post traumatic stress disorder F43.10 and Borderline personality disorder F60.3 [facility] [id number] [place] [address] 79675 -9044 March, Abdominal pain R10.9 ; UTI symptoms R39.9 and Other microscopic hematuria R31.29 [place] [id number] [place] [address] 02903- 7509 March, [place] [id number] [place] [address] 59659- 6587 March, Bipolar disorder, current episode mixed, moderate F31.62 ; Post traumatic stress disorder F43.10 and Borderline personality disorder F60.3 [place] [id number] [place] [address] 27979- 6611 Feb, Encounter for immunization Z23 [place] [id number] [place] [address] 19906- 0406 Feb, Bipolar disorder, current episode mixed, moderate F31.62 ; Post traumatic stress disorder F43.10 and Borderline personality disorder F60.3 [place] [address] [place] [address] 22594- 5143 Feb, Bipolar disorder, current episode mixed, moderate F31.62 ; Post traumatic stress disorder F43.10 ; Borderline personality disorder F60.3 and 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 [place] [address] [place] [address] 10540- 1148 Jan, Encounter for immunization Z23 [place] [id number] [place] [address] 48494- 7979 Jan, [place] [id number] [place] [address] 47570- 9693 Jan, Bipolar disorder, current episode mixed, moderate F31.62 [facility] [id number] [place] [address] 43893 -2552 10 Jan, 2018 Lumbar back pain M54.5 [place] [address] 41987- 7518 28 Dec, 2017 Low back pain M54.5 [place] [address] 00149- 6400 13 Dec, 2017 Bipolar disorder, current episode mixed, moderate F31.62 [place] [address] 59609- 7017 Dec, Generalized anxiety disorder F41.1 and Bipolar disorder, current episode mixed, moderate F31.62 [facility] [address] 04689 -7847 Nov, Acute non intractable tension-type headache G44.209 [place] [address] 91174- 8583 Nov, Bipolar disorder, current episode mixed, moderate F31.62 ; Post traumatic stress disorder F43.10 and Borderline personality disorder F60.3 [place] [address] 42479- 1903 Nov, Bipolar disorder, current episode mixed, moderate F31.62 [facility] [place] [id number] [place] [address] 40924 -7576 Nov, Abdominal pain R10.9 ; History of PCOS Z87.42 ; History of endometriosis Z87.42 and Pelvic pain R10.2 [place] [id number] [place] [address] 35169- 3897 Nov, [facility] [address] 33910 -3468 Oct, History of PCOS Z87.42 ; History of endometriosis Z87.42 and Pain R52 [place] [address] 28441- 0180 Oct, Bipolar disorder, current episode mixed, moderate F31.62 ; Post traumatic stress disorder F43.10 and Borderline personality disorder F60.3 [facility] [id number] [place] [address] 97265- 2172 Oct, Bipolar disorder, current episode mixed, moderate F31.62 [place] [id number] [place] [address] 00261- 3570 Sep, Bipolar disorder, current episode mixed, moderate F31.62 ; Post traumatic stress disorder F43.10 ; Borderline personality disorder F60.3 and 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 [place] [id number] [place] [address] 164101- 3116 17 Sep, 2017 Bipolar disorder, current episode mixed, moderate F31.62 [facility] [id number] [place] [address] 92676 -7913 Sep, Endometriosis N80.9 and Acute right-sided low back pain with right-sided sciatica M54.41 [facility] [id number] [place] [address] 03944- 6198 Aug, [facility] [address] [id number]- 0020 Aug, Bipolar disorder, current episode mixed, moderate F31.62 ; Post traumatic stress disorder F43.10 and Borderline personality disorder F60.3 [place] [id number] [place] [address] 71282- 3730 Aug, Bipolar disorder, current episode mixed, moderate F31.62 ; Post traumatic stress disorder F43.10 and Borderline personality disorder F60.3 [facility] [id number] [place] [address] 47757- 8708 13 Jul, 2017 Bipolar disorder, current episode mixed, moderate F31.62 ; Post traumatic stress disorder F43.10 and Borderline personality disorder F60.3 [facility] [id number] [place] [address] 87659 -0939 11 Jul, 2017 Pharyngitis, unspecified etiology J02.9 and Streptococcal pharyngitis J02.0 [facility] [address] [address]- 2221 Jun, Bipolar disorder, current episode mixed, moderate F31.62 ; Post traumatic stress disorder F43.10 and Borderline personality disorder F60.3 [place] [address] [address]- 0845 May, [place] [id number] [place] [address] 68322- 1668 May, [facility] [id number] [place] [address] 07078- 3688 May, Bipolar disorder, current episode mixed, moderate F31.62 and Generalized anxiety disorder F41.1 [place] [id number] [place] [address] 29793- 9316 March, Bipolar disorder, current episode mixed, moderate F31.62 and Generalized anxiety disorder F41.1 [place] [address] [place] [address] 31574- 3109 March, Pelvic pain R10.2 [place] [id number] [place] [address] 58870- 1470 March, [place] [address] [place] [address] 99447- 6808 Feb, Bipolar disorder, current episode mixed, moderate F31.62 and Generalized anxiety disorder F41.1 [place] [address] [address]- 3690 Jan, [place] [id number] [place] [address] 89558- 6183 Jan, Bipolar disorder, current episode mixed, moderate F31.62 [place] [address], [place] [address]- 5215 Jan, Bipolar disorder, current episode mixed, moderate F31.62 [place] [id number] [place] [address] 56853- 6787 24 Jan, 2017 Bilateral low back pain without sciatica M54.5 [facility] [id number] [place] [address] [phone] Jan, Dental caries K02.9 and Dental examination Z01.20 [facility] [id number] [place] [address] [id number] 09 Jan, 2017 Encounter for dental examination and cleaning without abnormal findings Z01.20 [facility] [id number] [place] [address] 57107- 0271 06 Jan, 2017 Bipolar disorder, current episode mixed, moderate F31.62 and Generalized anxiety disorder F41.1 [facility] [id number] [place] [address] 34695- 1128 24 Dec, 2016 [facility] [id number] [place] [address] 15225- 7171 06 Dec, 2016 Bipolar disorder, current episode mixed, moderate F31.62 and Generalized anxiety disorder F41.1 [facility] [id number] [place] [address] 45471- 0163 03 Dec, 2016 Other fatigue R53.83 and Orthostatic hypotension I95.1 [facility] [address] [place] [address] [phone] Nov, Dental examination Z01.20 [facility] [id number] [place] [address] 08469 -8425 Nov, Bronchitis J40 [facility] [id number] [place] [address] 02933- 1553 Oct, Generalized anxiety disorder F41.1 [facility] [id number] [place] [address] 88303- 1457 Sep, Bipolar disorder, current episode mixed, moderate F31.62 and Generalized anxiety disorder F41.1 [facility] [id number] [place] [address] 57489- 6319 02 Sep, 2016 Bipolar disorder, current episode mixed, moderate F31.62 and Generalized anxiety disorder F41.1 [facility] [address], [place] [address] -7473 Jul, Upper respiratory tract infection, unspecified type J06.9 [facility] [id number] [place] [address] 17061- 2269 Jun, Bipolar disorder, current episode mixed, moderate F31.62 and Generalized anxiety disorder F41.1 [facility] [id number] [place] [address] 64071- 5623 Apr, [facility] [id number] [place] [address] 44365- 8197 Apr, Encounter for test, result positive Z32.01 [facility] [id number] [place] [address] 77478- 9484 March, [facility] [id number] [place] [address] 81708- 8866 March, Bipolar disorder, current episode mixed, moderate F31.62 and Generalized anxiety disorder F41.1 [facility] [id number] [place] [address] 23448- 4584 March, Bipolar disorder, current episode mixed, moderate F31.62 and Generalized anxiety disorder F41.1 [facility] [address] [place] [address] 52890- 8711 March, [facility] [id number] [place] [address] 95900- 7822 March, [facility] [address] [place] [address] 57599- 6498 Feb, [facility] [id number] [place] [address] 68841- 8540 Feb, [facility] [address] [place] [address] 71805- 1678 Feb, Bipolar disorder, current episode mixed, moderate F31.62 and Generalized anxiety disorder F41.1 [place] [id number] [place] [address] 46468- 2961 22 Jan, 2016 Abdominal pain R10.9 [place] [id number] [place] [address] 56766- 4116 14 Jan, 2016 [place] [id number] [place] [address] 42589- 7349 29 Dec, 2015 Dental examination Z01.20 [place] [id number] [place] [address] 40449- 4976 22 Dec, 2015 Dental examination Z01.20 and Dental caries K02.9 [place] [address] 14063- 9370 15 Dec, 2015 Bipolar disorder, current episode mixed, moderate F31.62 and Generalized anxiety disorder F41.1 [place] [id number] [place] [address] 79756- 7600 15 Dec, 2015 [place] [id number] [place] [address] 60622- 2224 Nov, Bipolar disorder, current episode mixed, moderate F31.62 ; Generalized anxiety disorder F41.1 and Seizure-like activity R56.9 [place] [id number] [place] [address] 97087- 2857 Oct, [place] [id number] [place] [address] 23623- 8173 Oct, Bipolar disorder, current episode mixed, moderate F31.62 [place] [id number] [place] [address] 41692- 2820 14 Oct, 2015 Well woman exam Z01.419 [...] Tobacco use Z72.0 and Hot flashes N95.1 [place] [address] 54506- 7150 09 Oct, 2015 Seizure-like activity R56.9 and Irregular periods N92.6 [place] [address] 98367- 9335 Oct, Bipolar disorder, current episode mixed, moderate F31.62 ; Generalized anxiety disorder F41.1 and Underweight R63.6 [place] [address] 14038- 8972 Oct, [place] [address] 79824- 1524 Oct, Generalized anxiety disorder F41.1 and Unspecified mood [ affective] disorder F39 [facility] [address] 45973 -4498 Oct, Back pain M54.9 and Anxiety F41.9 [place] [address] 90751- 5786 Oct, [facility] [address] 22203 -1699 Sep, Arm pain, left M79.602 [place] [address] 50793- 5394 Sep, [facility] [address] [id number] Sep, Dental examination Z01.20 and Dental caries K02.9 [place] [address] 60084- 9710 Sep, Generalized anxiety disorder F41.1 and Unspecified episodic mood disorder F39 [place] [address] 07069- 3804 Sep, Bilateral low back pain without sciatica M54.5 and Seizure- like activity R56.9 [facility] [address] [place] [address] 54149- 7900 Aug, [facility] [id number] [place] [address] 06908- 0452 Aug, [facility] [id number] [place] [address] 05288- 1729 Aug, [facility] [id number] [place] [address] 24075- 9177 Aug, Visual changes H53.9 and Bilateral low back pain without sciatica M54.5 [facility] [id number] [place] [address] 82271- 2255 Jul, [facility] [id number] [place] [address] 60834- 4947 Jun, Bipolar I disorder, most recent episode (or current) mixed, moderate 296.62 ; Generalized anxiety disorder 300.02 and High risk medication use V58.69 [facility] [id number] [place] [address] 09994- 1621 Jun, [facility] [id number] [place] [address] 90724- 4427 May, [facility] [address] [place] [address] 09553- 6518 May, Bipolar I disorder, most recent episode (or current) mixed, moderate 296.62 and Generalized anxiety disorder 300.02 [facility] [address] [place] [address] [id number] May, Dental examination V72.2 [facility] [address] [place] [address] 97620- 3671 March, Bipolar I disorder, most recent episode (or current) mixed, moderate 296.62 and Generalized anxiety disorder 300.02 [facility] [address] [place] [address] 28304- 6478 March, [facility] [address] [address]- 8065 March, [facility] [id number] [address]- 7926 March, Underweight 783.22 ; Hand pain, right 729.5 and Reflux gastritis 535.40 [facility] [id number] [place] [address], [place] [address]- 5933 Feb, [facility] [address] [facility] [id number] [place] [address]- 0591 Feb, [facility] [id number] [place] [address], [place] [address]- 2502 18 Jan, 2015 [facility] [id number] [address]- 2422 18 Jan, 2015 [facility] [id number] [place] [address]- 0004 16 Jan, 2015 [facility] [address] [address]- 8822 16 Jan, 2015 [facility] [address] [place] [address]- 3376 Jan, [facility] [address], [place] [address]- 3639 Jan, [facility] [address], [place] [address]- 1424 05 Jan, 2015 [facility] [id number] [address]- 9996 05 Jan, 2015 [facility] [id number] [address]- 8046 04 Jan, 2015 [facility] [address] [facility] [id number] [address]- 1046 04 Jan, 2015 [facility] [address], [place] [address]- 0276 Jan, 2014 [facility] [place] [facility] [address] [facility] [id number] [place] [address]- 1883 Jan, 2014 [facility] [place] [facility] [address] [facility] [id number] [place] [address]- 2382 20 Dec, 2014 [facility] [place] [facility] [address] [facility] [id number] [place] [address]- 7491 Dec, 2014 [facility] [place] [facility] [address] [facility] [id number] [place] [address]- 1192 Dec, 2014 [facility] [place] [facility] [address] [facility] [id number] [place] [address]- 5344 Dec, 2014 [facility] [place] [facility] [address] [facility] [id number] [place] [address]- 1374 18 Dec, 2014 [facility] [place] [facility] [id number] [place] [address]- 8668 17 Dec, 2014 [facility] [place] [facility] [address] [facility] [id number] [place] [address]- 8794 17 Dec, 2014 [facility] [place] [facility] [address] [facility] [id number] [place] [address]- 6284 16 Dec, 2014 [facility] [place] [facility] [address] [facility] [id number] [place] [address]- 4800 16 Dec, 2014 [facility] [place] [facility] [id number] [place] [address]- 2739 05 Dec, 2014 [facility] [place] [facility] [address] [facility] [id number], [place] [address]- 2541 05 Dec, 2014 [facility] [place] [facility] [address] [facility] [id number] [place] [address]- 7256 05 Dec, 2014 [facility] [place] [facility] [address] [facility] [id number], [place] [address]- 0247 05 Dec, 2014 [facility] [place] [facility] [id number] [address]- 3656 Dec, [facility] [place] [facility] [address] [id number] [place] [address]- 9948 Dec, [facility] [place] [facility] [address] [id number] [place] [address]- 6702 Dec, [facility] [place] [facility] [address] [id number] [place] [address]- 2426 Dec, [facility] [place] [facility] [address] [id number] [place] [address]- 3940 Dec, [facility] [place] [facility] [address] [id number] [place] [address]- 6619 Dec, [facility] [place] [facility] [address] [id number], [place] [address]- 4390 Nov, [facility] [place] [facility] [address] [id number], [place] [address]- 0722 Nov, [facility] [place] [facility] [address] [id number], [place] [address]- 2079 Nov, [facility] [place] [facility] [address] [id number], [place] [address]- 4645 Nov, [facility] [place] [facility] [address] [id number], [place] [address]- 4947 Nov, [facility] [place] [facility] [address] [id number], [place] [address]- 0956 Nov, [facility] [place] [facility] [address] [facility] [id number] [id number] Nov, [facility] [place] [facility] [address] [id number], [place] [address]- 8804 Nov, [facility] [place] [facility] [address] [id number], [place] [address]- 7223 Nov, [facility] [place] [facility] [address] [id number] [id number] Nov, [facility] [place] [facility] [address] [id number], [place] [address]- 7399 Nov, [facility] [place] [facility] [address] [id number] [place] [address]- 5882 Nov, [facility] [place] [facility] [address] [id number] [place] [id number] Oct, [facility] [place] [facility] [address] [facility] [id number] [place] [address] Oct, [facility] [place] [facility] [address] [id number] [place] [address] Oct, [facility] [place] [facility] [address] [id number] [place] [address] Oct, [facility] [place] [facility] [address] [id number] [place] [address] Oct, [facility] [place] [facility] [address] [facility] [id number] [place] [address] Oct, [facility] [place] [facility] [address] [id number] [place] [address] Oct, [facility] [place] [facility] [address] [id number] [place] [address] Oct, [facility] [place] [facility] [address] [facility] [id number] [place] [address] Oct, [facility] [place] [facility] [address] [id number] [place] [address] Oct, [facility] [place] [facility] [address] [id number] [place] [address] Oct, [facility] [place] [facility] [address] [id number] [place] [address] Oct, [facility] [place] [facility] [address] [facility] [id number] [place] [address] Sep, [facility] [place] [facility] [address] [facility] [id number] [place] [address] [address] Sep, [facility] [place] [facility] [address] [id number] [place] [address] Sep, [facility] [place] [facility] [address] [id number] [place] [address] [address] Sep, [facility] [place] [facility] [address] [id number] [place] [address] Sep, [facility] [place] [facility] [address] [id number] [place] [address] Sep, [facility] [place] [facility] [address] [id number] [place] [place] [address] Sep, [facility] [place] [facility] [address] [id number] [place] [address] Sep, [facility] [place] [facility] [address] [id number] [place] [address] 5749 Aug, [facility] [place] [facility] [address] [id number] [place] [address] 1648 Aug, [facility] [place] [facility] [address] [id number] [place] [address] 4118 Aug, [facility] [place] [facility] [address] [id number] [place] [address] 2724 Aug, [facility] [place] [facility] [address] [id number] [place] [address]- 4661 Aug, [facility] [place] [facility] [address] [id number] [place] [address]- 8477 Aug, [facility] [place] [facility] [address] [id number] [place] [address]- 1168 Aug, [facility] [place] [facility] [address] [id number] [place] [address] 6315 Aug, [facility] [place] [facility] [address] [id number] [place] [address] Aug, [facility] [place] [facility] [address] [id number] [place] [address]- 4928 Aug, [facility] [place] [facility] [address] [id number] [place] [address]- 0787 Aug, [facility] [place] [facility] [address] [id number] [place] [address]- 2142 Aug, [facility] [place] [facility] [address] [id number] [place] [address] Aug, [facility] [place] [facility] [address] [id number] [place] [address]- 9276 Jul, [facility] [place] [facility] [address] [id number] [place] [address]- 6795 Jul, [facility] [place] [facility] [address] [id number] [place] [address]- 0878 Jul, [facility] [place] [facility] [address] [id number] [place] [address]- 8418 Jul, [facility] [place] [facility] [address] [id number] [place] [address]- 1137 Jun, [facility] [place] [facility] [address] [id number] [place] [address]- 4404 Jun, [facility] [place] [facility] [address] [id number] [place] [address]- 1407 Jun, [facility] [place] [facility] [address] [id number] [place] [address]- 5693 Jun, [facility] [place] [facility] [address] [id number] [place] [address]- 1280 Jun, [facility] [place] [facility] [address] [id number] [place] [address]- 5716 Jun, [facility] [place] [facility] [address] [id number] [place] [address]- 8227 May, [facility] [place] [facility] [address] [id number] [place] [address]- 2640 May, [facility] [place] [facility] [address] [id number] [place] [address]- 7389 May, [facility] [address] [id number] [place] [address]- 0979 May, [facility] [place] [facility] [address] [id number] [place] [address]- 2227 Apr, [facility] [place] [facility] [address] [id number] [place] [address]- 3572 Apr, [facility] [place] [facility] [address] [id number] [place] [address]- 6446 March, [facility] [place] [facility] [address] [id number] [place] [address]- 2692 March, [facility] [place] [facility] [address] [id number] [place] [address]- 4038 March, [facility] [place] [facility] [address] [id number] [place] [address]- 8140 March, [facility] [place] [facility] [address] [id number] [place] [address]- 2985 March, [facility] [place] [facility] [address] [id number] [place] [address]- 4528 March, [facility] [place] [facility] [address] [id number] [place] [address]- 6180 Feb, [facility] [place] [facility] [address] [id number] [place] [address]- 7414 Feb, [facility] [place] [facility] [address] [id number] [place] [address]- 2443 Dec, [facility] [place] [facility] [address] [id number] [place] [address] Dec, [facility] [place] [facility] [address] [id number] [place] [address]- 0286 Nov, [facility] [place] [facility] [address] [id number] [place] [address]- 3921 Nov, [facility] [place] [facility] [address] [id number] [place] [address]- 1242 Sep, [facility] [place] [facility] [address] [id number] [place] [address]- 1368 Sep, [facility] [place] [facility] [address] [id number] [place] [address]- 4894 Sep, [facility] [place] [facility] [address] [id number] [place] [address]- 2256 Sep, [facility] [place] [facility] [address] [id number] [place] [address]- 0697 Sep, [facility] [place] [facility] [address] [id number] [place] [address]- 7036 Sep, [facility] [place] [facility] [address] [id number] [place] [address]- 6555 Sep, [facility] [place] [facility] [address] [id number] [place] [address]- 0866 Aug, [facility] [place] [facility] [address] [id number] [place] [address]- 3097 Aug, [facility] [place] [facility] [address] [id number], [place] [address]- 1780 Aug, [facility] [place] [facility] [address] [id number], [place] [address]- 0846 Aug, [facility] [place] [facility] [address] [id number], [place] [address]- 6902 Aug, [facility] [place] [facility] [address] [id number] [place] [address]- 6633 Aug, [facility] [place] [facility] [address] [id number], [place] [address]- 4879 Jul, [facility] [place] [facility] [address] [id number], [place] [address]- 2547 Jul, [facility] [place] [facility] [address] [id number], [place] [address]- 6[address] 16 Jul, 2013 [facility] [place] [facility] [address] [id number] [place] [address]- 5489 Jul, [facility] [place] [facility] [address] [id number] [place] [address]- 7901 Jun, [facility] [place] [facility] [address] [id number] [place] [address]- 7925 Jun, [facility] [place] [facility] [address] [id number] [place] [address]- 4557 Jun, [facility] [place] [facility] [address] [id number] [place] [address]- 8558 Jun, [facility] [place] [facility] [address] [id number] [place] [address]- 2326 Jun, [facility] [place] [facility] [address] [id number] [place] [address]- 6918 Jun, [facility] [place] [facility] [address] [id number] [place] [address]- 6890 Jun, [facility] [place] [facility] [address] [id number] [place] [address]- 8311 May, [facility] [place] [facility] [address] [id number] [place] [address]- 7478 May, [facility] [place] [facility] [address] [id number] [place] [address]- 8571 May, [facility] [place] [facility] [address] [id number] [place] [address]- 2275 May, [facility] [place] [facility] [address] [id number] [place] [address]- 4398 May, [facility] [place] [facility] [address] [id number] [place] [address]- 8134 May, [facility] [place] [facility] [address] [id number] [place] [address]- 9366 May, [facility] [place] [facility] [address] [id number] [place] [address]- 6077 28 Apr, 2013 [facility] [place] [facility] [address] [id number] [place] [address]- 8820 27 Apr, 2013 [facility] [place] [facility] [address] [id number] [place] [address]- 2930 27 Apr, 2013 [facility] [place] [facility] [address] [id number] [place] [address]- 0251 26 Apr, 2013 [facility] [place] [facility] [address] [id number] [place] [address]- 3216 20 Apr, 2013 [facility] [place] [facility] [address] [id number] [place] [address]- 3502 18 Apr, 2013 [facility] [place] [facility] [address] [id number] [place] [address]- 8902 18 Apr, 2013 [facility] [place] [facility] [address] [id number] [place] [address]- 5949 18 Apr, 2013 [facility] [place] [facility] [address] [id number] [place] [address]- 5979 17 Apr, 2013 [facility] [place] [facility] [address] [id number] [place] [address]- 5604 14 Apr, 2013 [facility] [place] [facility] [address] [id number] [place] [address]- 1988 14 Apr, 2013 [facility] [place] [facility] [address] [id number] [place] [address]- 4651 11 Apr, 2013 [facility] [place] [facility] [address] [id number] [place] [address]- 9622 10 Apr, 2013 [facility] [place] [facility] [address] [id number] [place] [address]- 5200 09 Apr, 2013 [facility] [place] [facility] [address] [id number] [place] [address]- 9686 07 Apr, 2013 [facility] [place] [facility] [address] [id number] [place] [address]- 0765 Apr, [facility] [address] [id number] [place] [address]- 0504 Apr, [facility] [place] [facility] [address] [id number] [place] [address]- 0051 Apr, [facility] [address] [id number] [place] [address]- 2687 Apr, [facility] [place] [facility] [address] [id number] [place] [address]- 3965 March, [facility] [address] [id number] [place] [address]- 1167 March, [facility] [address] [id number] [place] [address]- 5333 March, [facility] [address] [id number] [place] [address]- 7717 March, [facility] [address] [id number] [place] [address]- 8244 March, [facility] [address] [id number] [place] [address]- 2338 March, [facility] [address] [id number] [place] [address]- 9347 March, [facility] [place] [facility] [address] [id number] [place] [address]- 4473 Feb, [facility] [place] [facility] [address] [id number] [place] [address]- 3713 Feb, [facility] [place] [facility] [address] [id number] [place] [address]- 5331 Jan, [facility] [place] [facility] [address] [id number] [place] [address]- 2941 18 Jan, 2013 [facility] [place] [facility] [address] [id number] [place] [address]- 6976 15 Jan, 2013 [facility] [place] [facility] [address] [id number] [place] [address]- 2127 14 Jan, 2013 [facility] [address] [id number] [place] [address]- 1793 13 Jan, 2013 [facility] [place] [facility] [address] [id number] [place] [address]- 2156 12 Jan, 2013 [facility] [address] [id number] [place] [address]- 8154 11 Jan, 2013 [facility] [place] [facility] [address] [id number] [place] [address]- 2259 09 Jan, 2013 [facility] [address] [id number] [place] [address]- 1981 08 Jan, 2013 [facility] [place] [facility] [address] [id number] [place] [address]- 9352 07 Jan, 2013 [facility] [address] [id number] [place] [address]- 4300 06 Jan, 2013 [facility] [place] [facility] [address] [id number] [place] [address]- 9969 17 Nov, 2012 [facility] [place] [facility] [address] [id number] [place] [address]- 1457 Oct, [facility] [place] [facility] [address] [id number] [place] [address]- 6483 Oct, [facility] [place] [facility] [address] [id number] [place] [address]- 3519 Oct, [facility] [place] [facility] [address] [id number] [place] [address]- 4640 Oct, [facility] [place] [facility] [address] [id number] [place] [address]- 1719 30 Sep, 2012 [facility] [place] [facility] [address] [id number] [place] [address]- 1860 30 Sep, 2012 [facility] [place] [facility] [address] [id number] [place] [address]- 1280 Sep, [facility] [place] [facility] [address] [id number] [place] [address]- 2307 Sep, [facility] [place] [facility] [address] [id number] [place] [address]- 5032 Sep, [facility] [place] [facility] [address] [id number] [place] 6892 Sep, [facility] [place] [facility] [address] [id number] [place] [address]- 5017 Sep, [facility] [place] [facility] [address] [id number] [place] [address]- 9528 Sep, [facility] [place] [facility] [address] [id number] [place] [address]- 4497 Sep, [facility] [place] [facility] [address] [id number] [place] [address]- 5475 Sep, [facility] [place] [facility] [address] [id number] [place] [address]- 9041 Sep, [facility] [place] [facility] [address] [id number] [place] [address]- 3874 Aug, [facility] [place] [facility] [address] [id number] [place] [address]- 9162 Aug, [facility] [place] [facility] [address] [id number] [place] [address]- 7211 Aug, [facility] [place] [facility] [address] [id number] [place] [address]- 6552 28 Jul, 2012 [facility] [place] [facility] [address] [id number] [place] [address]- 6682 25 Sep2011 [facility] [place] [facility] [address] [id number] [place] [address]- 7015 19 Sep2011 [facility] [place] [facility] [address] [id number] [place] [address]- 4891 17 Sep2011 [facility] [place] [facility] [address] [id number] [place] [address]- 9453 20 Jun, 2012 [facility] [place] [facility] [address] [id number] [place] [address]- 0336 16 Jun, 2012 [facility] [place] [facility] [address] [id number] [place] [address]- 8496 15 Jun, 2012 [facility] [place] [facility] [address] [id number] [place] [address]- 0396 15 Jun, 2012 [facility] [place] [facility] [address] [id number] [place] [address]- 6830 13 Jun, 2012 [facility] [place] [facility] [address] [id number] [place] [address]- 9653 March, [facility] [place] [facility] [address] [id number] [place] [address]- 8234 04 Feb, 2012 [facility] [place] [facility] [address] [id number] [place] [address]- 9761 28 Jan, 2012 [facility] [place] [facility] [address] [id number] [place] [address]- 7696 27 Jan, 2012 [facility] [place] [facility] [address] [id number] [place] [address]- 6088 22 Jan, 2012 [facility] [place] [facility] [address] [id number] [place] [address]- 7536 14 Jan, 2012 [facility] [place] [facility] [address] [id number] [place] [address]- 6325 14 Jan, 2012 [facility] [place] [facility] [address] [id number] [place] [address]- 9848 14 Jan, 2012 [facility] [place] [facility] [address] [id number] [place] [address]- 2766 28 Dec, 2011 [facility] [place] [facility] [address] [id number] [place] [address]- 9344 27 Dec, 2011 [facility] [place] [facility] [address] [id number] [place] [address]- 1966 23 Dec, 2011 [facility] [place] [facility] [address] [facility] [id number], [place] [address]- 8705 21 Dec, 2011 [facility] [address] [facility] [id number], [place] [address]- 4186 20 Dec, 2011 [facility] [address] [facility] [id number], [place] [address]- 2546 19 Dec, 2011 [facility] [address] [id number], [place] [address] 2546 17 Dec, 2011 [facility] [address] [facility] [id number] [place] [address]- 2542 16 Dec, 2011 [facility] [id number] [place] [address], [place] [address]- 4823 Nov, [facility] [address] [id number], [place] [address]- 9257 Oct, [facility] [id number], [place] [address]- 5194 18 Sep, 2011 [facility] [id number], [place] [address]- 0279 18 Sep, 2011 [facility] [id number], [place] [address]- 6942 17 Sep, 2011 [facility] [id number], [place] [address]- 8539 17 Sep, 2011 [facility] [id number], [place] [address]- 9160 07 Sep, 2011 [facility] [address] [id number], [place] [address]- 2194 04 Sep, 2011 [facility] [id number], [place] [address]- 0243 14 Jan, 2011 [facility] [address] [facility] [id number], [place] [address]- 6313 17 Apr, 2010 IMMUNIZATIONS No Known Immunizations SOCIAL HISTORY Never Assessed REASON FOR VISIT lower abdominal pain that is constant for 9 years...has gotten worse over the past 8 months. antonia, was here last weekend and reports darryn gave her pain meds and she would like more. PLAN OF CARE Activity Details Follow Up prn Reason: VITAL SIGNS Height 66 in 2017-11-18 Weight 130.2 lbs 2017-11-18 Temperature 98.5 degrees Fahrenheit 2017-11-18 Heart Rate 88 bpm 2017-11-18 Respiratory Rate 20 2017-11-18 BMI 21.01 kg/m2 2017-11-18 Blood pressure systolic 104 mmHg 2017-11-18 Blood pressure diastolic 68 mmHg 2017-11-18 MEDICATIONS Medication Instructions Dosage Frequency Start Date End Date Duration Status Ibuprofen 800 MG Orally Three times a day 1 tablet with food or milk as needed 8h Oct, Nov, 30 days Active Remeron 30 MG Orally Once a day at bedtime 1 tablet Oct, 30 day(s) Active Lamictal 150 MG Orally Once a day 1 tablet 24h Aug, Active Klonopin 0.5 MG Orally three times a day as needed 1 tablet Aug, Active Percocet 5-325 MG Orally every 6 hrs 1 tablet as needed 6h Nov, Nov, 3 days Active RESULTS Name Result Date Reference Range UA LONG DIP (IN HOUSE) 2017-11-18 Lot # [id number] Exp date 2017 09 30 Clarity clear Color yellow Odor none GLU negative DARBY negative KET negative SG 1.020 BLO negative pH 6.0 Protein negative URO 0.2 NIT negative RADHA negative Lot # [id number] Exp date february 2018 PROCEDURES Procedure Date Ordered Result Body Site URINALYSIS, AUTO, W/O SCOPE Nov 18, 2017 INSTRUCTIONS MEDICATIONS ADMINISTERED No Known Medications [...]
--- OUTSIDE RECORDS SUMMARY | 2018-08-05 20:35 | XMS REPORT ---
Author Author MIGDALIA OVALLES Organization [facility] Address [address] [place] [address] Care Team Providers Care Supervisor Packing Room Name Role Phone MIGDALIA OVALLES Unavailable PROBLEMS Type Condition ICD9-CM Code [id number] Code Onset Dates Condition Status SNOMED Code Problem Generalized anxiety disorder F41.1 Active 46254374 Problem Acute non intractable tension-type headache G44.209 Active 749723457 Problem Acute right-sided low back pain with right-sided sciatica M54.41 Active 928369916 Problem Post traumatic stress disorder F43.10 Active 73978719 Problem Bipolar disorder, current episode mixed, moderate F31.62 Active 832615052 Problem Endometriosis N80.9 Active 169167691 Problem Borderline personality disorder F60.3 Active 38090044 ALLERGIES No Information ENCOUNTERS Encounter Location Date Diagnosis [facility] [address] [address]- [address]093 May, [facility] [address] [id number] Apr, Dental examination Z01.20 [facility] [id number] [place] [address] 61765 -9538 Apr, [facility] [id number] [place] [address] 87230- 2163 Apr, Dental examination Z01.20 [facility] [id number] [place] [address] 40077 -9068 Apr, Tooth pain K08.89 [facility] [address] 57761- 2161 06 Apr, 2018 Bipolar disorder, current episode mixed, moderate F31.62 ; Post traumatic stress disorder F43.10 and Borderline personality disorder F60.3 [facility] [address] [place] [address] 87722 -1618 March, Abdominal pain R10.9 ; UTI symptoms R39.9 and Other microscopic hematuria R31.29 [facility] [id number] [place] [address] 32743- 4182 March, [facility] [id number] [place] [address] 94083- 9132 March, Bipolar disorder, current episode mixed, moderate F31.62 ; Post traumatic stress disorder F43.10 and Borderline personality disorder F60.3 [facility] [id number] [place] [address] 49181- 6990 Feb, Encounter for immunization Z23 [facility] [id number] [place] [address] 69180- 1669 Feb, Bipolar disorder, current episode mixed, moderate F31.62 ; Post traumatic stress disorder F43.10 and Borderline personality disorder F60.3 [facility] [id number] [place] [address] 35849- 7872 Feb, Bipolar disorder, current episode mixed, moderate F31.62 ; Post traumatic stress disorder F43.10 ; Borderline personality disorder F60.3 and 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 [facility] [id number] [place] [address] 77429- 5860 Jan, Encounter for immunization Z23 [facility] [id number] [place] [address] 87999- 9772 Jan, [facility] [id number] [place] [address] 92442- 5831 Jan, Bipolar disorder, current episode mixed, moderate F31.62 [facility] [id number] [place] [address] 59483 -3147 Jan, Lumbar back pain M54.5 [facility] [id number] [place] [address] 42687- 4587 Dec, Low back pain M54.5 [facility] [id number] [place] [address] 52415- 1336 Dec, Bipolar disorder, current episode mixed, moderate F31.62 [facility] [id number] [place] [address] 24875- 0690 Dec, Generalized anxiety disorder F41.1 and Bipolar disorder, current episode mixed, moderate F31.62 [facility] [address] 030693 -0613 Nov, Acute non intractable tension-type headache G44.209 [facility] [address] 442964- 4104 Nov, Bipolar disorder, current episode mixed, moderate F31.62 ; Post traumatic stress disorder F43.10 and Borderline personality disorder F60.3 [facility] [address] 38173- 8976 Nov, Bipolar disorder, current episode mixed, moderate F31.62 [facility] [id number] [place] [address] 58160 -5958 Nov, Abdominal pain R10.9 ; History of PCOS Z87.42 ; History of endometriosis Z87.42 and Pelvic pain R10.2 [facility] [id number] [place] [address] 49933- 0517 Nov, [facility] [id number] [place] [address] 92680 -4800 Oct, History of PCOS Z87.42 ; History of endometriosis Z87.42 and Pain R52 [facility] [address] 50915- 2297 Oct, Bipolar disorder, current episode mixed, moderate F31.62 ; Post traumatic stress disorder F43.10 and Borderline personality disorder F60.3 [facility] [id number] [place] [address] 43641- 5767 Oct, Bipolar disorder, current episode mixed, moderate F31.62 [facility] [address] [place] [address] 90436- 7009 Sep, Bipolar disorder, current episode mixed, moderate F31.62 ; Post traumatic stress disorder F43.10 ; Borderline personality disorder F60.3 and Other penitentiary (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 Z79.899 [facility] [id number] [place] [address] 91695- 7821 17 Sep, 2017 Bipolar disorder, current episode mixed, moderate F31.62 [facility] [id number] [place] [address] 98408 -6866 Sep, Endometriosis N80.9 and Acute right-sided low back pain with right-sided sciatica M54.41 [facility] [id number] [place] [address] 08840- 6380 Aug, [facility] [id number] [place] [address] 76646- 3023 Aug, Bipolar disorder, current episode mixed, moderate F31.62 ; Post traumatic stress disorder F43.10 and Borderline personality disorder F60.3 [facility] [id number] [place] [address] 85350- 8340 11 Aug, 2017 Bipolar disorder, current episode mixed, moderate F31.62 ; Post traumatic stress disorder F43.10 and Borderline personality disorder F60.3 [facility] [address] [place] [address] 48826- 7701 13 Jul, 2017 Bipolar disorder, current episode mixed, moderate F31.62 ; Post traumatic stress disorder F43.10 and Borderline personality disorder F60.3 [facility] [address] [place] [address] 22484 -1433 11 Jul, 2017 Pharyngitis, unspecified etiology J02.9 and Streptococcal pharyngitis J02.0 [facility] [address] [place] [address] 63404- 4505 16 Jun, 2017 Bipolar disorder, current episode mixed, moderate F31.62 ; Post traumatic stress disorder F43.10 and Borderline personality disorder F60.3 [facility] [address] [place] [address] 82041- 4570 May, [facility] [id number] [place] [address] 09207- 6665 May, [facility] [id number] [place] [address] 10565- 2101 May, Bipolar disorder, current episode mixed, moderate F31.62 and Generalized anxiety disorder F41.1 [facility] [id number] [place] [address] 79629- 4698 March, Bipolar disorder, current episode mixed, moderate F31.62 and Generalized anxiety disorder F41.1 [facility] [id number] [place] [address] 17813- 1851 March, Pelvic pain R10.2 [facility] [id number] [place] [address] 83852- 6422 March, [facility] [id number] [place] [address] 10276- 3320 Feb, Bipolar disorder, current episode mixed, moderate F31.62 and Generalized anxiety disorder F41.1 [facility] [address] [place] [address] 77632- 1192 Jan, [facility] [address] [place] [address] 41154- 4620 Jan, Bipolar disorder, current episode mixed, moderate F31.62 [facility] [address] [address]- 2045 Jan, Bipolar disorder, current episode mixed, moderate F31.62 [facility] [id number] [place] [address] 50616- 2850 Jan, Bilateral low back pain without sciatica M54.5 [facility] [address] [address] Jan, Dental caries K02.9 and Dental examination Z01.20 [facility] [address] [address] Jan, Encounter for dental examination and cleaning without abnormal findings Z01.20 [facility] [address] [place] [address] 680909- 6205 06 Jan, 2017 Bipolar disorder, current episode mixed, moderate F31.62 and Generalized anxiety disorder F41.1 [facility] [id number] [place] [address] 42588- 6513 24 Dec, 2016 [facility] [address] 10898- 4810 Dec, Bipolar disorder, current episode mixed, moderate F31.62 and Generalized anxiety disorder F41.1 [facility] [id number] [place] [address] 74620- 8528 Dec, Other fatigue R53.83 and Orthostatic hypotension I95.1 [facility] [address] [place] [address] [id number] Nov, Dental examination Z01.20 [facility] [id number] [place] [address] 13492 -2655 Nov, Bronchitis J40 [facility] [id number] [place] [address] 76503- 2031 14 Oct, 2016 Generalized anxiety disorder F41.1 [facility] [id number] [place] [address] 56826- 0018 14 Sep, 2016 Bipolar disorder, current episode mixed, moderate F31.62 and Generalized anxiety disorder F41.1 [facility] [id number] [place] [address] 11186- 8906 02 Sep, 2016 Bipolar disorder, current episode mixed, moderate F31.62 and Generalized anxiety disorder F41.1 [facility] [id number] [place] [address] 74965 -1190 08 Jul, 2016 Upper respiratory tract infection, unspecified type J06.9 [facility] [address] [address]- 2315 Jun, Bipolar disorder, current episode mixed, moderate F31.62 and Generalized anxiety disorder F41.1 [facility] [address] [place] [address] 41205- 5560 Apr, [facility] [id number] [place] [address] 79177- 8202 Apr, Encounter for test, result positive Z32.01 [facility] [id number] [place] [address] 00154- 0346 March, [facility] [id number] [place] [address] 18795- 9649 March, Bipolar disorder, current episode mixed, moderate F31.62 and Generalized anxiety disorder F41.1 [facility] [id number] [place] [address] 34349- 4425 March, Bipolar disorder, current episode mixed, moderate F31.62 and Generalized anxiety disorder F41.1 [facility] [address] [place] [address] 17707- 7750 March, [facility] [id number] [place] [address] 47472- 2238 March, [facility] [id number] [place] [address] 60579- 8746 Feb, [facility] [address] [place] [address] 30905- 2200 Feb, [facility] [address] [place] [address] 64494- 0574 Feb, Bipolar disorder, current episode mixed, moderate F31.62 and Generalized anxiety disorder F41.1 [facility] [address] [address]- 3460 22 Jan, 2016 Abdominal pain R10.9 [facility] [id number] [place] [address] 78791- 0912 14 Jan, 2016 [facility] [address] [place] [address] 34993- 0785 29 Dec, 2015 Dental examination Z01.20 [facility] [address] [place] [address]- 2641 22 Dec, 2015 Dental examination Z01.20 and Dental caries K02.9 [facility] [id number] [place] [address] 43910- 4703 Dec, Bipolar disorder, current episode mixed, moderate F31.62 and Generalized anxiety disorder F41.1 [facility] [id number] [place] [address] 51540- 5773 Dec, [facility] [id number] [place] [address] 86434- 2416 Nov, Bipolar disorder, current episode mixed, moderate F31.62 ; Generalized anxiety disorder F41.1 and Seizure-like activity R56.9 [facility] [address] [place] [address] 21027- 6191 Oct, [facility] [id number] [place] [address] 63541- 5333 Oct, Bipolar disorder, current episode mixed, moderate F31.62 [facility] [id number] [place] [address] 32734- 5006 14 Oct, 2015 Well woman exam Z01.419 [...] Tobacco use Z72.0 and Hot flashes N95.1 [facility] [address] [place] [address] 79366- 9162 Oct, Seizure-like activity R56.9 and Irregular periods N92.6 [facility] [address] 66694- 4835 Oct, Bipolar disorder, current episode mixed, moderate F31.62 ; Generalized anxiety disorder F41.1 and Underweight R63.6 [facility] [address] 70081- 8080 Oct, [facility] [address] 03401- 5809 Oct, Generalized anxiety disorder F41.1 and Unspecified mood [ affective] disorder F39 [facility] [address] 71886 -7751 Oct, Back pain M54.9 and Anxiety F41.9 [facility] [address] 07798- 6492 Oct, [facility] [id number] [place] [address] 07250 -7606 Sep, Arm pain, left M79.602 [facility] [address] 37644- 6951 Sep, [facility] [id number] [place] [address] [id number] Sep, Dental examination Z01.20 and Dental caries K02.9 [facility] [id number] [place] [address] 63228- 1716 Sep, Generalized anxiety disorder F41.1 and Unspecified episodic mood disorder F39 [facility] [address] 79833- 0392 Sep, Bilateral low back pain without sciatica M54.5 and Seizure- like activity R56.9 [facility] [id number] [place] [address] 07653- 6647 Aug, [facility] [address] [place] [address]- 3124 Aug, [facility] [id number] [place] [address] 84521- 9693 Aug, [facility] [id number] [place] [address] 71210- 3377 Aug, Visual changes H53.9 and Bilateral low back pain without sciatica M54.5 [facility] [id number] [place] [address] 49218- 2177 Jul, [facility] [id number] [place] [address] 04861- 9420 Jun, Bipolar I disorder, most recent episode (or current) mixed, moderate 296.62 ; Generalized anxiety disorder 300.02 and High risk medication use V58.69 [facility] [id number] [place] [address] 98225- 8066 Jun, [facility] [id number] [place] [address] 03549- 4541 May, [facility] [id number] [place] [address] 63586- 1751 May, Bipolar I disorder, most recent episode (or current) mixed, moderate 296.62 and Generalized anxiety disorder 300.02 [facility] [address] [place] [address] [id number] May, Dental examination V72.2 [facility] [address] [place] [address] 86943- 8934 March, Bipolar I disorder, most recent episode (or current) mixed, moderate 296.62 and Generalized anxiety disorder 300.02 [facility] [id number] [place] [address] 19144- 0098 March, [facility] [address] [place] [address] 01946- 8464 March, [facility] [id number] [place] [address] 81910- 5079 March, Underweight 783.22 ; Hand pain, right 729.5 and Reflux gastritis 535.40 [facility] [address] [place] [address]- 4398 14 Feb, 2015 [facility] [id number] [place] [address]- 6936 13 Feb, 2015 [facility] [id number] [place] [address], [place] [address]- 7496 18 Jan, 2015 [facility] [address] [facility] [id number] [place] [address]- 5676 18 Jan, 2015 [facility] [id number] [place] [address], [place] [address]- 1262 16 Jan, 2015 [facility] [id number] [place] [address]- 9036 16 Jan, 2015 [facility] [id number] [place] [address]- 4813 Jan, [facility] [id number] [place] [address]- 9150 Jan, [facility] [id number] [place] [address]- 1225 05 Jan, 2015 [facility] [address], [place] [address]- 0396 05 Jan, 2015 [facility] [address], [place] [address]- 3028 Jan, [facility] [address], [place] [address]- 9486 Jan, [facility] [address], [place] [address]- 4536 Jan, [facility] [address], [place] [address]- 2546 Jan, [facility] [address], [place] [address]- 3172 Dec, 2014 [facility] [place] [facility] [address] [facility] [id number] [place] [address]- 1858 20 Dec, 2014 [facility] [place] [facility] [address] [facility] [id number] [place] [address]- 4146 19 Dec, 2014 [facility] [place] [facility] [address] [facility] [id number] [place] [address]- 2155 19 Dec, 2014 [facility] [place] [facility] [address] [facility] [id number] [place] [address]- 0194 18 Dec, 2014 [facility] [place] [facility] [address] [facility] [id number] [place] [address]- 8508 17 Dec, 2014 [facility] [place] [facility] [address] [facility] [id number] [place] [address]- 8609 17 Dec, 2014 [facility] [place] [facility] [address] [id number] [place] [address]- 3007 16 Dec, 2014 [facility] [place] [facility] [address] [facility] [id number] [place] [address]- 0837 16 Dec, 2014 [facility] [place] [facility] [address] [facility] [id number] [place] [address]- 6352 05 Dec, 2014 [facility] [place] [facility] [address] [facility] [id number] [place] [address]- 0253 05 Dec, 2014 [facility] [place] [facility] [address] [facility] [id number] [place] [address]- 2723 05 Dec, 2014 [facility] [place] [facility] [address] [facility] [id number] [place] [address]- 2549 05 Dec, 2014 [facility] [place] [facility] [address] [facility] [id number] [place] [address]- 6792 04 Dec, 2014 [facility] [place] [facility] [address] [facility] [id number] [address]- 2467 04 Dec, 2014 [facility] [place] [facility] [address] [facility] [id number] [place] [address]- 8211 Dec, [facility] [place] [facility] [address] [id number] [place] [address]- 2043 Dec, [facility] [place] [facility] [address] [id number] [place] [address]- 7656 Dec, [facility] [place] [facility] [address] [id number] [place] [address]- 3637 Dec, [facility] [place] [facility] [address] [id number] [place] [address]- 5452 Nov, [facility] [place] [facility] [address] [id number] [place] [address]- 2028 Nov, [facility] [place] [facility] [address] [id number], [place] [address]- 1658 Nov, [facility] [place] [facility] [address] [id number], [place] [address]- 0372 Nov, [facility] [place] [facility] [address] [id number], [place] [address]- 2330 Nov, [facility] [place] [facility] [address] [id number], [place] [address]- 6751 Nov, [facility] [place] [facility] [address] [address] Nov, [facility] [place] [facility] [address] [id number], [place] [address]- 1568 Nov, [facility] [place] [facility] [address] [id number], [place] [address]- 5475 Nov, [facility] [place] [facility] [address] [id number][place] [id number] Nov, [facility] [place] [facility] [address] [id number], [place] [address] Nov, [facility] [place] [facility] [address] [id number], [place] [address] Nov, [facility] [place] [facility] [address] [id number], [place] [address] Oct, [facility] [place] [facility] [address] [id number] [place] [address] Oct, [facility] [place] [facility] [address] [id number] [place] [address] Oct, [facility] [place] [facility] [address] [id number] [place] [address] Oct, [facility] [place] [facility] [address] [id number] [place] [address] Oct, [facility] [place] [facility] [address] [id number] [place] [address] Oct, [facility] [place] [facility] [address] [id number] [place] [address] Oct, [facility] [place] [facility] [address] [id number] [place] [address] Oct, [facility] [place] [facility] [address] [id number] [place] [address] Oct, [facility] [place] [facility] [address] [id number] [place] [address] Oct, [facility] [place] [facility] [address] [id number] [place] [address] Oct, [facility] [place] [facility] [address] [id number] [place] [address] Oct, [facility] [place] [facility] [address] [id number] [place] [address] Sep, [facility] [place] [facility] [address] [id number] [place] [address] Sep, [facility] [place] [facility] [address] [id number] [place] [address] Sep, [facility] [place] [facility] [address] [id number] [place] [address] Sep, [facility] [place] [facility] [address] [id number] [place] [address] 05 Sep, 2014 [facility] [place] [facility] [address] [id number] [place] [address] Sep, [facility] [place] [facility] [address] [id number] [place] [address] Sep, [facility] [place] [facility] [address] [id number] [place] [address] Sep, [facility] [place] [facility] [address] [id number] [place] [address] Aug, [facility] [place] [facility] [address] [id number] [place] [address] Aug, [facility] [place] [facility] [address] [id number] [place] [address] Aug, [facility] [place] [facility] [address] [id number] [place] [address] Aug, [facility] [place] [facility] [address] [id number] [place] [address] Aug, [facility] [place] [facility] [address] [id number] [place] [address] Aug, [facility] [place] [facility] [address] [id number] [place] [address] Aug, [facility] [place] [facility] [address] [id number] [place] [address] Aug, [facility] [place] [facility] [address] [id number] [place] [address] Aug, [facility] [place] [facility] [address] [id number] [place] [address] 94[address] Aug, [facility] [place] [facility] [address] [id number] [place] [address] Aug, [facility] [place] [facility] [address] [id number] [place] [address] Aug, [facility] [place] [facility] [address] [id number] [place] [address] Aug, [facility] [place] [facility] [address] [id number] [place] [address] 6[address] Jul, [facility] [place] [facility] [address] [id number] [place] [address] 8[address] Jul, [facility] [place] [facility] [address] [id number] [place] [address] 3643 Jul, [facility] [place] [facility] [address] [id number] [place] [address] 8645 Jul, [facility] [place] [facility] [address] [id number] [place] [address]- 26[address] Jun, [facility] [place] [facility] [address] [id number] [place] [address] Jun, [facility] [place] [facility] [address] [id number] [place] [address]- 5769 Jun, [facility] [place] [facility] [address] [id number] [place] [address]- 8577 Jun, [facility] [place] [facility] [address] [id number] [place] [address] 6609 Jun, [facility] [place] [facility] [address] [id number] [place] [address]- 6368 Jun, [facility] [place] [facility] [address] [id number] [place] [address]- 9123 May, [facility] [place] [facility] [address] [id number] [place] [address]- 6977 May, [facility] [place] [facility] [address] [id number] [place] [address]- 9499 May, [facility] [place] [facility] [address] [id number] [place] [address]- 1814 May, [facility] [place] [facility] [address] [id number] [place] [address]- 4215 Apr, [facility] [place] [facility] [address] [id number] [place] [address]- 8414 Apr, [facility] [place] [facility] [address] [id number] [place] [address]- 2539 March, [facility] [place] [facility] [address] [id number] [place] [address]- 6249 March, [facility] [place] [facility] [address] [id number] [place] [address]- 3480 March, [facility] [place] [facility] [address] [id number] [place] [address]- 3557 March, [facility] [place] [facility] [address] [id number] [place] [address]- 3585 March, [facility] [place] [facility] [address] [id number] [place] [address]- 1208 March, [facility] [place] [facility] [address] [id number] [place] [address]- 5929 Feb, [facility] [place] [facility] [address] [id number] [place] [address]- 7047 Feb, [facility] [place] [facility] [address] [id number] [place] [address]- 0069 Dec, [facility] [place] [facility] [address] [id number] [place] [address]- 9118 Dec, [facility] [place] [facility] [address] [id number] [place] [address]- 1356 Nov, [facility] [place] [facility] [address] [id number] [place] [address]- 9467 Nov, [facility] [place] [facility] [address] [id number] [place] [address]- 9124 Sep, [facility] [place] [facility] [address] [id number] [place] [address]- 5689 Sep, [facility] [place] [facility] [address] [id number] [place] [address]- 1166 06 Sep, 2013 [facility] [place] [facility] [address] [id number] [place] [address] Sep, [facility] [place] [facility] [address] [id number] [place] [address]- [address] 05 Sep, 2013 [facility] [place] [facility] [address] [id number] [place] [address]- 2603 Sep, [facility] [place] [facility] [address] [id number] [place] [address]- 8416 Sep, [facility] [place] [facility] [address] [id number] [place] [address]- 2884 Aug, [facility] [place] [facility] [address] [id number] [place] [address]- 5517 Aug, [facility] [place] [facility] [address] [id number] [place] [address]- 3127 Aug, [facility] [place] [facility] [address] [id number] [place] [address]- 1015 Aug, [facility] [place] [facility] [address] [id number] [place] [address]- 7166 Aug, [facility] [place] [facility] [address] [id number] [place] [address]- 7735 Aug, [facility] [place] [facility] [address] [id number], [place] [address] 19 Jul, 2013 [facility] [place] [facility] [address] [id number] [place] [address]- 4686 19 Jul, 2013 [facility] [place] [facility] [address] [id number] [place] [address]- 3848 16 Jul, 2013 [facility] [place] [facility] [address] [id number] [place] [address]- 4169 13 Jul, 2013 [facility] [place] [facility] [address] [id number] [place] [address]- 2534 Jun, [facility] [place] [facility] [address] [id number] [place] [address]- 9[address] Jun, [facility] [place] [facility] [address] [id number] [place] [address]- 7094 Jun, [facility] [place] [facility] [address] [id number] [place] [address]- 4861 Jun, [facility] [place] [facility] [address] [id number] [place] [address]- 4625 Jun, [facility] [place] [facility] [address] [id number] [place] [address]- 8093 Jun, [facility] [place] [facility] [address] [id number] [place] [address]- 0754 Jun, [facility] [place] [facility] [address] [id number] [place] [address]- 0181 May, [facility] [place] [facility] [address] [id number] [place] [address]- 0621 May, [facility] [place] [facility] [address] [id number] [place] [address]- 0362 May, [facility] [place] [facility] [address] [id number] [place] [address]- 8364 May, [facility] [place] [facility] [address] [id number] [place] [address]- 5775 May, [facility] [place] [facility] [address] [id number] [place] [address]- 9321 May, [facility] [place] [facility] [address] [id number] [place] [address]- 1028 May, [facility] [place] [facility] [address] [id number] [place] [address]- 5643 Apr, [facility] [place] [facility] [address] [id number] [place] [address]- 3463 Apr, [facility] [place] [facility] [address] [id number] [place] [address]- 7551 27 Apr, 2013 [facility] [place] [facility] [address] [id number] [place] [address]- 5231 26 Apr, 2013 [facility] [place] [facility] [address] [id number] [place] [address]- 6928 20 Apr, 2013 [facility] [place] [facility] [address] [id number] [place] [address]- 6392 18 Apr, 2013 [facility] [place] [facility] [address] [id number] [place] [address]- 1405 18 Apr, 2013 [facility] [place] [facility] [address] [id number] [place] [address]- 6754 18 Apr, 2013 [facility] [place] [facility] [address] [id number] [place] [address]- 6981 17 Apr, 2013 [facility] [place] [facility] [address] [id number] [place] [address]- 3349 14 Apr, 2013 [facility] [place] [facility] [address] [id number] [place] [address]- 3374 14 Apr, 2013 [facility] [place] [facility] [address] [id number] [place] [address]- 7059 11 Apr, 2013 [facility] [place] [facility] [address] [id number] [place] [address]- 4420 10 Apr, 2013 [facility] [place] [facility] [address] [id number] [place] [address]- 1724 09 Apr, 2013 [facility] [place] [facility] [address] [id number] [place] [address]- 0234 07 Apr, 2013 [facility] [place] [facility] [address] [id number] [place] [address]- 5129 06 Apr, 2013 [facility] [place] [facility] [address] [id number] [place] [address]- 1149 06 Apr, 2013 [facility] [place] [facility] [address] [id number] [place] [address]- 5800 Apr, [facility] [address] [id number] [place] [address]- 5180 Apr, [facility] [address] [id number] [place] [address]- 5210 March, [facility] [address] [id number] [place] [address] March, [facility] [address] [id number] [place] [address]- 3000 March, [facility] [address] [id number] [place] [address]- 9142 March, [facility] [address] [id number] [place] [address]- 1035 March, [facility] [address] [id number] [place] [address]- 1468 March, [facility] [address] [id number] [place] [address]- 2965 March, [facility] [address] [id number] [place] [address]- 6451 Feb, [facility] [address] [id number] [place] [address]- 5445 Feb, [facility] [address] [id number] [place] [address]- 0419 Jan, [facility] [place] [facility] [address] [id number], [place] [address]- 4271 18 Jan, 2013 [facility] [place] [facility] [address] [id number] [place] [address]- 8589 15 Jan, 2013 [facility] [place] [facility] [address] [id number] [place] [address]- 6485 14 Jan, 2013 [facility] [place] [facility] [address] [id number] [place] [address]- 9396 13 Jan, 2013 [facility] [place] [facility] [address] [id number], [place] [address]- 2404 12 Jan, 2013 [facility] [address] [id number] [place] [address]- 5304 11 Jan, 2013 [facility] [place] [facility] [address] [id number] [place] [address]- 7871 09 Jan, 2013 [facility] [place] [facility] [address] [facility] [id number] [place] [address]- 9044 08 Jan, 2013 [facility] [place] [facility] [address] [id number] [place] [address]- 4068 07 Jan, 2013 [facility] [address] [id number] [place] [address]- 6805 06 Jan, 2013 [facility] [place] [facility] [address] [id number] [place] [address]- 1027 17 Nov, 2012 [facility] [address] [facility] [id number] [place] [address]- 3166 Oct, [facility] [place] [facility] [address] [id number] [place] [address]- 9050 Oct, [facility] [address] [facility] [id number] [place] [address]- 0441 Oct, [facility] [place] [facility] [address] [facility] [id number] [place] [address]- 7222 Oct, [facility] [address] [id number] [place] [address]- 4139 30 Sep, 2012 [facility] [place] [facility] [address] [id number] [place] [address]- 9214 30 Sep, 2012 [facility] [place] [facility] [address] [id number] [place] [address]- 3617 Sep, [facility] [place] [facility] [address] [facility] [id number] [place] [address]- 6637 16 Sep, 2012 [facility] [place] [facility] [address] [facility] [id number] [place] [address]- 4637 16 Sep, 2012 [facility] [place] [facility] [address] [id number] [place] [address]- 1491 16 Sep, 2012 [facility] [place] [facility] [address] [id number] [place] [address]- 9744 Sep, [facility] [place] [facility] [address] [id number] [place] [address] 2546 Sep, [facility] [place] [facility] [address] [id number] [place] [address]- 6786 Sep, [facility] [place] [facility] [address] [id number] [place] [address]- 6718 Sep, [facility] [place] [facility] [address] [id number] [place] [address]- 2718 Sep, [facility] [place] [facility] [address] [id number] [place] [address]- 8514 Aug, [facility] [place] [facility] [address] [id number] [place] [address]- 9540 Aug, [facility] [place] [facility] [address] [id number] [place] [address]- 9217 Aug, [facility] [place] [facility] [address] [id number] [place] [address]- 0548 28 Jul, 2012 [facility] [place] [facility] [address] [id number] [place] [address]- 1670 25 Jul, 2012 [facility] [place] [facility] [address] [id number] [place] [address]- 3466 19 Jul, 2012 [facility] [place] [facility] [address] [id number] [place] [address]- 3950 17 Jul, 2012 [facility] [place] [facility] [address] [id number] [place] [address]- 2275 20 Jun, 2012 [facility] [place] [facility] [address] [id number] [place] [address]- 7495 16 Jun, 2012 [facility] [place] [facility] [address] [id number] [place] [address]- 3618 15 Jun, 2012 [facility] [place] [facility] [address] [id number] [place] [address]- 3399 15 Jun, 2012 [facility] [place] [facility] [address] [id number] [place] [address]- 5571 13 Jun, 2012 [facility] [place] [facility] [address] [id number] [place] [address]- 2302 March, [facility] [place] [facility] [address] [id number] [place] [address]- 0327 04 Feb, 2012 [facility] [place] [facility] [address] [id number] [place] [address]- 8005 28 Jan, 2012 [facility] [place] [facility] [address] [id number] [place] [address]- 1755 27 Jan, 2012 [facility] [place] [facility] [address] [id number] [place] [address]- 8870 Jan, [facility] [place] [facility] [address] [id number] [place] [address]- 8428 14 Jan, 2012 [facility] [place] [facility] [address] [id number] [place] [address]- 8374 14 Jan, 2012 [facility] [place] [facility] [address] [id number] [place] [address]- 2412 14 Jan, 2012 [facility] [place] [facility] [address] [id number] [place] [address]- 1325 28 Dec, 2011 [facility] [place] [facility] [address] [id number] [place] [address]- 1007 27 Dec, 2011 [facility] [place] [facility] [address] [id number] [place] [address]- 2932 23 Dec, 2011 [facility] [place] [facility] [address] [id number] [place] [address]57 21 Dec, 2011 [facility] [place] [facility] [address] [id number] [place] [address]- 5869 20 Dec, 2011 [facility] [place] [facility] [id number], [place] [address]- 6944 19 Dec, 2011 [facility] [id number], [place] [address]- 2748 17 Dec, 2011 [facility] [id number], [place] [address]- 7967 16 Dec, 2011 [facility] [id number], [place] [address]- 0999 Nov, [facility] [id number], [place] [address]- 3150 Oct, [facility] [id number] [place] [address]- 4506 Sep, [facility] [id number], [place] [address]- 1701 Sep, [facility] [id number], [place] [address]- 9115 Sep, [facility] [id number], [place] [address]- 0399 Sep, [facility] [id number], [place] [address]- 2014 Sep, [facility] [id number], [place] [address]- 1217 Sep, [facility] [id number], [place] [address]- 2279 Jan, [facility] [address] [id number], [place] [address]- 0705 Apr, IMMUNIZATIONS No Known Immunizations SOCIAL HISTORY Never Assessed REASON FOR VISIT Controlled Med Refill PLAN OF CARE VITAL SIGNS MEDICATIONS Unknown [...]
--- OUTSIDE RECORDS SUMMARY | 2018-08-05 20:36 | XMS REPORT ---
Author Author TMOASZ MARGARITA [facility] Address [address] [place] [address] Care Team Providers Care Principal Technical Specialist Name Role Phone TOMASZMARGARITA Unavailable PROBLEMS Type Condition ICD9-CM Code OYC55-OH Code Onset Dates Condition Status SNOMED Code Problem Generalized anxiety disorder F41.1 Active 86791397 Problem Acute non intractable tension-type headache G44.209 Active 819774486 Problem Acute right-sided low back pain with right-sided sciatica M54.41 Active 699574709 Problem Post traumatic stress disorder F43.10 Active 89622283 Problem Bipolar disorder, current episode mixed, moderate F31.62 Active 389787879 Problem Endometriosis N80.9 Active 620348020 Problem Borderline personality disorder F60.3 Active 70265296 ALLERGIES No Information ENCOUNTERS Encounter Location Date Diagnosis [facility] [id number] [place] [address] 09554- 7562 Apr, [facility] [id number] [place] [address] 49626 -8327 March, Abdominal pain R10.9 ; UTI symptoms R39.9 and Other microscopic hematuria R31.29 [facility] [id number] [place] [address] 09534- 7373 March, [facility] [id number] [place] [address] 98537- 5094 March, Bipolar disorder, current episode mixed, moderate F31.62 ; Post traumatic stress disorder F43.10 and Borderline personality disorder F60.3 [facility] [id number] [place] [address] 84680- 6069 Feb, Encounter for immunization Z23 [facility] [id number] [place] [address] 14481- 7299 Feb, Bipolar disorder, current episode mixed, moderate F31.62 ; Post traumatic stress disorder F43.10 and Borderline personality disorder F60.3 [place] [address] 99761- 2508 Feb, Bipolar disorder, current episode mixed, moderate F31.62 ; Post traumatic stress disorder F43.10 ; Borderline personality disorder F60.3 and 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 [place] [address] 613010- 3575 Jan, Encounter for immunization Z23 [place] [address] 149669- 2219 Jan, [place] [address] 13414- 7764 Jan, Bipolar disorder, current episode mixed, moderate F31.62 [facility] [address] 83581 -6211 Jan, Lumbar back pain M54.5 [place] [address] 76951- 2932 Dec, Low back pain M54.5 [place] [address] 09737- 8510 Dec, Bipolar disorder, current episode mixed, moderate F31.62 [place] [id number] [place] [address] 39702- 0776 Dec, Generalized anxiety disorder F41.1 and Bipolar disorder, current episode mixed, moderate F31.62 [facility] [address] 33097 -6447 Nov, Acute non intractable tension-type headache G44.209 [place] [address] 92337- 9190 Nov, Bipolar disorder, current episode mixed, moderate F31.62 ; Post traumatic stress disorder F43.10 and Borderline personality disorder F60.3 [place] [id number] [place] [address] 33543- 3714 Nov, Bipolar disorder, current episode mixed, moderate F31.62 [facility] [id number] [place] [address] 87358 -8678 Nov, Abdominal pain R10.9 ; History of PCOS Z87.42 ; History of endometriosis Z87.42 and Pelvic pain R10.2 [place] [id number] [place] [address] 26049- 8094 Nov, [facility] [address] 95644 -0422 Oct, History of PCOS Z87.42 ; History of endometriosis Z87.42 and Pain R52 [place] [address] 43591- 3191 Oct, Bipolar disorder, current episode mixed, moderate F31.62 ; Post traumatic stress disorder F43.10 and Borderline personality disorder F60.3 [place] [id number] [place] [address] 39467- 6478 Oct, Bipolar disorder, current episode mixed, moderate F31.62 [place] [id number] [place] [address] 29899- 9401 Sep, Bipolar disorder, current episode mixed, moderate F31.62 ; Post traumatic stress disorder F43.10 ; Borderline personality disorder F60.3 and 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 [place] [address] [place] [address] 48912- 3607 Sep, Bipolar disorder, current episode mixed, moderate F31.62 [facility] [id number] [place] [address] 38488 -5337 Sep, Endometriosis N80.9 and Acute right-sided low back pain with right-sided sciatica M54.41 [place] [address] 51181- 8316 Aug, [facility] [address] [address]- 3726 Aug, Bipolar disorder, current episode mixed, moderate F31.62 ; Post traumatic stress disorder F43.10 and Borderline personality disorder F60.3 [facility] [address] [address]- 2850 11 Aug, 2017 Bipolar disorder, current episode mixed, moderate F31.62 ; Post traumatic stress disorder F43.10 and Borderline personality disorder F60.3 [facility] [address] [address]- 7390 13 Jul, 2017 Bipolar disorder, current episode mixed, moderate F31.62 ; Post traumatic stress disorder F43.10 and Borderline personality disorder F60.3 [facility] [address] [address] -8261 11 Jul, 2017 Pharyngitis, unspecified etiology J02.9 and Streptococcal pharyngitis J02.0 [facility] [address] [address]- 2708 16 Jun, 2017 Bipolar disorder, current episode mixed, moderate F31.62 ; Post traumatic stress disorder F43.10 and Borderline personality disorder F60.3 [facility] [address] [address]- 3648 May, [facility] [address] [address]- 3383 May, [facility] [address] [place] [address] 28133- 5005 May, Bipolar disorder, current episode mixed, moderate F31.62 and Generalized anxiety disorder F41.1 [facility] [address] [place] [address] 99127- 6591 March, Bipolar disorder, current episode mixed, moderate F31.62 and Generalized anxiety disorder F41.1 [facility] [id number] [place] [address] 90740- 1776 March, Pelvic pain R10.2 [facility] [id number] [place] [address]- 7176 March, [facility] [id number] [place] 1106 Feb, Bipolar disorder, current episode mixed, moderate F31.62 and Generalized anxiety disorder F41.1 [facility] [id number] [place] 3443 Jan, [facility] [id number] [place] [address]- 6777 Jan, Bipolar disorder, current episode mixed, moderate F31.62 [place] [id number] [place] 0279 Jan, Bipolar disorder, current episode mixed, moderate F31.62 [facility] [id number] [place] [address] 75544- 2759 Jan, Bilateral low back pain without sciatica M54.5 [facility] [id number] [place] [address] [phone] Jan, Dental caries K02.9 and Dental examination Z01.20 [facility] [id number] [place] [address] [id number] Jan, Encounter for dental examination and cleaning without abnormal findings Z01.20 [facility] [address] [place] [address] 35806- 5376 Jan, Bipolar disorder, current episode mixed, moderate F31.62 and Generalized anxiety disorder F41.1 [facility] [id number] [place] [address] 37459- 1848 Dec, [facility] [id number] [place] [address]- 2833 Dec, Bipolar disorder, current episode mixed, moderate F31.62 and Generalized anxiety disorder F41.1 [place] [id number] [place] [address] 62077- 3141 03 Dec, 2016 Other fatigue R53.83 and Orthostatic hypotension I95.1 [facility] [id number] [place] [address] [phone] Nov, Dental examination Z01.20 [facility] [address] [place] [address] 09160 -2612 Nov, Bronchitis J40 [facility] [id number] [place] [address] 07179- 9737 Oct, Generalized anxiety disorder F41.1 [place] [id number] [place] [address] 88056- 0996 Sep, Bipolar disorder, current episode mixed, moderate F31.62 and Generalized anxiety disorder F41.1 [place] [id number] [place] [address] 91137- 6677 Sep, Bipolar disorder, current episode mixed, moderate F31.62 and Generalized anxiety disorder F41.1 [facility] [address] [place] [address] 18138 -5728 08 Jul, 2016 Upper respiratory tract infection, unspecified type J06.9 [place] [id number] [place] [address] 58219- 7465 Jun, Bipolar disorder, current episode mixed, moderate F31.62 and Generalized anxiety disorder F41.1 [place] [id number] [place] [address] 81237- 1764 Apr, [place] [id number] [place] [address] 08425- 5039 Apr, Encounter for test, result positive Z32.01 [place] [id number] [place] [address] 30747- 6073 March, [facility] [id number] [place] [address] 22074- 9476 March, Bipolar disorder, current episode mixed, moderate F31.62 and Generalized anxiety disorder F41.1 [facility] [address] [address]- 5055 March, Bipolar disorder, current episode mixed, moderate F31.62 and Generalized anxiety disorder F41.1 [facility] [address], [place] [address]- 9696 March, [facility] [id number] [place] [address] 25990- 2066 March, [facility] [id number] [place] [address] 51604- 1231 Feb, [facility] [id number] [place] [address] 07852- 2265 Feb, [facility] [id number] [place] [address] 12252- 6538 Feb, Bipolar disorder, current episode mixed, moderate F31.62 and Generalized anxiety disorder F41.1 [facility] [address] [place] [address] 63461- 0114 Jan, Abdominal pain R10.9 [facility] [id number] [place] [address] 69079- 4404 Jan, [facility] [address] [place] [address] 84235- 2784 29 Dec, 2015 Dental examination Z01.20 [facility] [id number] [place] [address] 72247- 2951 22 Dec, 2015 Dental examination Z01.20 and Dental caries K02.9 [facility] [address] [place] [address] 69279- 2337 15 Dec, 2015 Bipolar disorder, current episode mixed, moderate F31.62 and Generalized anxiety disorder F41.1 [facility] [address] [place] [address] 71856- 8752 Dec, [facility] [id number] [place] [address] 21026- 8243 Nov, Bipolar disorder, current episode mixed, moderate F31.62 ; Generalized anxiety disorder F41.1 and Seizure-like activity R56.9 [facility] [id number] [place] [address] 73596- 9367 Oct, [place] [id number] [place] [address] 17488- 2864 Oct, Bipolar disorder, current episode mixed, moderate F31.62 [place] [address] 56356- 6123 14 Oct, 2015 Well woman exam Z01.419 [...] Tobacco use Z72.0 and Hot flashes N95.1 [place] [address] 90315- 7773 Oct, Seizure-like activity R56.9 and Irregular periods N92.6 [place] [id number] [place] [address] 91388- 5614 Oct, Bipolar disorder, current episode mixed, moderate F31.62 ; Generalized anxiety disorder F41.1 and Underweight R63.6 [facility] [id number] [place] [address] 44034- 4475 Oct, [place] [address] 50028- 2054 Oct, Generalized anxiety disorder F41.1 and Unspecified mood [ affective] disorder F39 [facility] [id number] [place] [address] 30163 -9921 Oct, Back pain M54.9 and Anxiety F41.9 [facility] [address] [place] [address] 79033- 1599 Oct, [facility] [id number] [place] [address] 60515 -9767 Sep, Arm pain, left M79.602 [facility] [id number] [place] [address] 86400- 1968 Sep, [facility] [id number] [place] [address] [phone] Sep, Dental examination Z01.20 and Dental caries K02.9 [facility] [address] 99346- 6543 Sep, Generalized anxiety disorder F41.1 and Unspecified episodic mood disorder F39 [facility] [id number] [place] [address] 78206- 6211 Sep, Bilateral low back pain without sciatica M54.5 and Seizure- like activity R56.9 [facility] [id number] [place] [address] 23704- 9975 Aug, [facility] [id number] [place] [address] 05247- 8977 Aug, [facility] [id number] [place] [address] 86817- 8986 Aug, [facility] [id number] [place] [address] 02356- 4771 Aug, Visual changes H53.9 and Bilateral low back pain without sciatica M54.5 [facility] [id number] [place] [address] 19818- 7458 Jul, [facility] [id number] [place] [address] 66937- 1569 Jun, Bipolar I disorder, most recent episode (or current) mixed, moderate 296.62 ; Generalized anxiety disorder 300.02 and High risk medication use V58.69 [facility] [address], [place] [address]- 6724 Jun, [facility] [id number] [place] [address] 91405- 6049 May, [facility] [id number] [place] [address] 62567- 8137 May, Bipolar I disorder, most recent episode (or current) mixed, moderate 296.62 and Generalized anxiety disorder 300.02 [facility] [id number] [place] [address] [phone] May, Dental examination V72.2 [facility] [id number] [place] [address] 86251- 8540 March, Bipolar I disorder, most recent episode (or current) mixed, moderate 296.62 and Generalized anxiety disorder 300.02 [facility] [id number] [place] [address] 94404- 6724 March, [facility] [id number] [place] [address] 02267- 0021 March, [facility] [id number] [place] [address] 86599- 9739 March, Underweight 783.22 ; Hand pain, right 729.5 and Reflux gastritis 535.40 [facility] [id number] [place] [address] 43326- 2002 14 Feb, 2015 [facility] [id number] [place] [address] 57834- 4894 Feb, [facility] [id number] [place] [address] 48432- 1839 18 Jan, 2015 [facility] [id number] [place] [address] 68194- 5799 18 Jan, 2015 [facility] [id number] [place] [address] 27212- 1386 16 Jan, 2015 [facility] [id number] [place] [address]- 5647 16 Jan, 2014 [facility] [place] [facility] [address] [id number] [place] [address]- 0111 13 Jan, 2014 [facility] [place] [facility] [address] [id number] [place] [address]- 7931 13 Jan, 2014 [facility] [place] [facility] [address] [facility] [id number] [place] [address]- 6482 05 Jan, 2014 [facility] [place] [facility] [address] [id number] [place] [address]- 2649 05 Jan, 2014 [facility] [place] [facility] [address] [id number] [place] [address]- 0559 04 Jan, 2014 [facility] [place] [facility] [address] [facility] [id number] [place] [address]- 8178 04 Jan, 2014 [facility] [place] [facility] [address] [facility] [id number] [place] [address]- 2647 02 Jan, 2014 [facility] [place] [facility] [address] [facility] [id number] [place] [address]- 0267 02 Jan, 2014 [facility] [place] [facility] [address] [facility] [id number] [place] [address]- 7937 20 Dec, 2014 [facility] [place] [facility] [address] [facility] [id number] [place] [address]- 7989 20 Dec, 2014 [facility] [place] [facility] [address] [facility] [id number] [place] [address]- 1040 19 Dec, 2014 [facility] [place] [facility] [address] [facility] [id number] [place] [address]- 9320 19 Dec, 2014 [facility] [place] [facility] [address] [facility] [id number] [place] [address]- 5255 18 Dec, 2014 [facility] [place] [facility] [address] [facility] [id number] [place] [address]- 2096 17 Dec, 2014 [facility] [place] [facility] [address] [facility] [id number] [place] [address]- 7481 Dec, 2014 [facility] [place] [facility] [address] [id number] [place] [address]- 1497 Dec, 2014 [facility] [place] [facility] [address] [id number] [place] [address]- 7739 Dec, 2014 [facility] [place] [facility] [address] [facility] [id number] [place] [address]- 5596 Dec, 2014 [facility] [place] [facility] [address] [facility] [id number] [place] [address]- 6627 Dec, 2014 [facility] [place] [facility] [address] [id number] [place] [address]- 4910 Dec, 2014 [facility] [place] [facility] [address] [facility] [id number] [place] [address]- 6142 Dec, 2014 [facility] [place] [facility] [id number] [place] [address]- 4906 Dec, 2014 [facility] [place] [facility] [address] [facility] [id number] [place] [address]- 5679 Dec, 2014 [facility] [place] [facility] [address] [facility] [id number] [place] [address]- 0790 Dec, 2014 [facility] [place] [facility] [address] [facility] [id number] [place] [address]- 2640 Dec, 2014 [facility] [place] [facility] [address] [facility] [id number] [place] [address]- 9221 Dec, 2014 [facility] [place] [facility] [address] [facility] [id number] [address]- 0312 Dec, 2014 [facility] [place] [facility] [address] [facility] [id number] [place] [address]- 9923 Nov, [facility] [place] [facility] [address] [facility] [id number] [place] [address]- 5523 Nov, [facility] [place] [facility] [address] [facility] [id number], [place] [address]- 1002 Nov, [facility] [place] [facility] [address] [id number] [place] [address]- 2546 Nov, [facility] [place] [facility] [address] [id number] [place] [address]- 2546 Nov, [facility] [place] [facility] [address] [id number] [place] [address]- 2546 Nov, [facility] [place] [facility] [address] [id number] [place] [id number] Nov, [facility] [place] [facility] [address] [id number] [place] [address]- 2546 Nov, [facility] [place] [facility] [address] [id number] [place] [address]- 2546 Nov, [facility] [place] [facility] [address] [id number] [place] [id number] Nov, [facility] [place] [facility] [address] [id number] [place] [address]- 2546 Nov, [facility] [place] [facility] [address] [id number] [place] [address]- 2546 Nov, [facility] [place] [facility] [address] [id number] [place] [address]- 4946 Oct, [facility] [place] [facility] [address] [id number] [place] [address]- 2546 Oct, [facility] [place] [facility] [address] [id number] [place] [address]- 2546 Oct, [facility] [place] [facility] [address] [id number] [place] [address] Oct, [facility] [place] [facility] [address] [id number] [place] [address] Oct, [facility] [place] [facility] [address] [id number] [place] [address] Oct, [facility] [place] [facility] [address] [id number] [place] [address] Oct, [facility] [place] [facility] [address] [id number] [place] [address] Oct, [facility] [place] [facility] [address] [id number] [place] [address] Oct, [facility] [place] [facility] [address] [id number] [place] [address] Oct, [facility] [place] [facility] [address] [id number] [place] [address] Oct, [facility] [place] [facility] [address] [id number] [place] [address] Oct, [facility] [place] [facility] [address] [id number] [place] [address] Sep, [facility] [place] [facility] [address] [id number] [place] [address] Sep, [facility] [place] [facility] [address] [id number] [place] [address] Sep, [facility] [place] [facility] [address] [id number] [place] [address] Sep, [facility] [place] [facility] [address] [id number], [place] [address] Sep, [facility] [place] [facility] [address] [id number], [place] [address] Sep, [facility] [place] [facility] [address] [id number], [place] [address] Sep, [facility] [place] [facility] [address] [id number] [place] [address] Sep, [facility] [place] [facility] [address] [id number] [place] [address] Aug, [facility] [place] [facility] [address] [id number] [place] [address] Aug, [facility] [place] [facility] [address] [id number] [place] [address] Aug, [facility] [place] [facility] [address] [id number] [place] [address] Aug, [facility] [place] [facility] [address] [id number] [place] [address] Aug, [facility] [place] [facility] [address] [id number] [place] [address] 10 Aug, 2014 [facility] [place] [facility] [address] [id number] [place] [address] 08 Aug, 2014 [facility] [place] [facility] [address] [id number] [place] [address] 08 Aug, 2014 [facility] [place] [facility] [address] [id number] [place] [address] Aug, [facility] [place] [facility] [address] [id number] [place] [address] Aug, 2013 [facility] [place] [facility] [address] [id number] [place] [address] Aug, [facility] [place] [facility] [address] [id number] [place] [address] 2073 Aug, [facility] [place] [facility] [address] [facility] [id number] [place] [address] Aug, [facility] [place] [facility] [address] [id number] [place] [address] 7332 Jul, [facility] [place] [facility] [address] [id number] [place] [address]185 22 Jul, 2014 [facility] [place] [facility] [address] [id number] [place] [address]- 8202 Jul, [facility] [place] [facility] [address] [id number] [place] [address]- 6146 Jul, [facility] [place] [facility] [address] [id number] [place] [address] 3[address] Jun, [facility] [place] [facility] [address] [id number] [place] [address] 79[address] Jun, [facility] [place] [facility] [address] [id number] [place] [address] 8690 Jun, [facility] [place] [facility] [address] [id number] [place] [address]- 1134 Jun, [facility] [place] [facility] [address] [id number] [place] [address] 8057 Jun, [facility] [place] [facility] [address] [id number] [place] [address]- 7872 Jun, [facility] [place] [facility] [address] [id number] [place] [address]- 1566 May, [facility] [place] [facility] [address] [id number] [place] [address]- 0748 May, [facility] [place] [facility] [address] [id number] [place] [address]- 2529 May, [facility] [place] [facility] [address] [id number] [place] [address]- 8587 May, [facility] [place] [facility] [address] [id number] [place] [address]- 4943 Apr, [facility] [place] [facility] [address] [id number] [place] [address]- 1309 Apr, [facility] [place] [facility] [address] [id number] [place] [address]- 1706 March, [facility] [place] [facility] [address] [id number] [place] [address]- 2417 March, [facility] [place] [facility] [address] [id number] [place] [address] 7647 March, [facility] [place] [facility] [address] [id number] [place] [address] 8921 March, [facility] [place] [facility] [address] [id number] [place] [address]- 6493 March, [facility] [place] [facility] [address] [id number] [place] [address]- 8705 March, [facility] [place] [facility] [address] [id number] [place] [address]- 3395 Feb, [facility] [place] [facility] [address] [id number] [place] [address]- 3317 Feb, [facility] [place] [facility] [address] [id number] [place] [address]- 2227 Dec, [facility] [place] [facility] [address] [id number] [place] [address]- 0204 Dec, [facility] [place] [facility] [address] [id number] [place] [address]- 2387 Nov, [facility] [place] [facility] [address] [id number] [place] [address]- 4356 Nov, [facility] [place] [facility] [address] [id number] [place] [address]- 8484 Sep, [facility] [place] [facility] [address] [id number] [place] [address]- 0335 Sep, [facility] [place] [facility] [address] [id number] [place] [address]- 3163 Sep, [facility] [place] [facility] [address] [id number] [place] [address]- 6633 Sep, [facility] [place] [facility] [address] [id number] [place] [address]- 0233 Sep, [facility] [place] [facility] [address] [id number] [place] [address]- 4053 Sep, [facility] [place] [facility] [address] [id number] [place] [address]- 4994 Sep, [facility] [place] [facility] [address] [id number] [place] [address]- 6327 Aug, [facility] [place] [facility] [address] [id number] [place] [address]- 7713 30 Aug, 2013 [facility] [address] [id number] [place] [address]- 4708 Aug, [facility] [place] [facility] [address] [id number] [place] [address] 0434 Aug, [facility] [address] [id number] [place] [address]- 1021 Aug, [facility] [place] [facility] [address] [id number] [place] [address]- 5287 Aug, [facility] [address] [id number] [place] [address]- 0887 Jul, [facility] [place] [facility] [address] [id number] [place] [address]- 9260 Jul, [facility] [place] [facility] [address] [id number] [place] [address]- 1104 16 Jul, 2013 [facility] [address] [id number] [place] [address]- 1050 Jul, [facility] [place] [facility] [address] [id number] [place] [address]- 8530 Jun, [facility] [address] [id number] [place] [address]- 9587 Jun, [facility] [place] [facility] [address] [id number] [place] [address]- 8996 Jun, [facility] [place] [facility] [address] [id number] [place] [address]- 8449 Jun, [facility] [place] [facility] [address] [id number] [place] [address]- 3452 Jun, [facility] [place] [facility] [address] [id number] [place] [address]- 4310 Jun, [facility] [place] [facility] [address] [id number] [place] [address]- 2828 Jun, [facility] [place] [facility] [address] [id number] [place] [address]- 0713 May, [facility] [place] [facility] [address] [id number] [place] [address]- 1380 May, [facility] [place] [facility] [address] [id number] [place] [address]- 2831 16 May, 2013 [facility] [place] [facility] [address] [id number] [place] [address]- 9066 15 May, 2013 [facility] [place] [facility] [address] [id number] [place] [address] 1967 May, [facility] [place] [facility] [address] [id number] [place] [address]- 8589 May, [facility] [place] [facility] [address] [id number] [place] [address]- 6059 May, [facility] [place] [facility] [address] [id number] [place] [address]- 5577 Apr, [facility] [place] [facility] [address] [id number] [place] [address]- 6614 Apr, [facility] [place] [facility] [address] [id number] [place] [address]- 8874 Apr, [facility] [place] [facility] [address] [id number] [place] [address]- 4765 Apr, [facility] [place] [facility] [address] [id number], [place] [address]- 3896 Apr, [facility] [place] [facility] [address] [id number] [place] [address]- 1120 Apr, [facility] [place] [facility] [address] [id number] [place] [address]- 2002 Apr, [facility] [place] [facility] [address] [id number] [place] [address]- 5110 Apr, [facility] [place] [facility] [address] [id number], [place] [address] 8[address] 17 Apr, 2013 [facility] [address] [id number] [place] [address]- 7838 14 Apr, 2013 [facility] [place] [facility] [address] [id number] [place] [address]- 1402 14 Apr, 2013 [facility] [place] [facility] [address] [id number] [place] [address]- 3871 11 Apr, 2013 [facility] [place] [facility] [address] [id number] [place] [address]- 9931 10 Apr, 2013 [facility] [address] [id number] [place] [address]- 4904 09 Apr, 2013 [facility] [place] [facility] [address] [id number] [place] [address]- 2760 07 Apr, 2013 [facility] [address] [id number] [place] [address]- 5230 06 Apr, 2013 [facility] [place] [facility] [address] [id number] [place] [address]- 5845 06 Apr, 2013 [facility] [place] [facility] [address] [id number] [place] [address]- 5368 05 Apr, 2013 [facility] [place] [facility] [address] [id number] [place] [address]- 9611 Apr, [facility] [place] [facility] [address] [id number] [place] [address]- 7409 March, [facility] [place] [facility] [address] [id number] [place] [address]- 8953 March, [facility] [place] [facility] [address] [id number] [place] [address]- 0183 March, [facility] [place] [facility] [address] [id number] [place] [address]- 9635 March, [facility] [place] [facility] [address] [id number] [place] [address]- 5339 March, [facility] [place] [facility] [address] [id number] [place] [address]- 1294 March, [facility] [address] [id number] [place] [address]- 6640 March, [facility] [place] [facility] [address] [id number] [place] [address]- 9202 Feb, [facility] [address] [id number] [place] [address]- 3921 Feb, [facility] [place] [facility] [address] [id number] [place] [address]- 3281 27 Jan, 2013 [facility] [place] [facility] [address] [id number] [place] [address]- 7382 18 Jan, 2013 [facility] [address] [id number] [place] [address]- 8135 15 Jan, 2013 [facility] [address] [id number] [place] [address]- 4001 14 Jan, 2013 [facility] [address] [id number] [place] [address]- 5690 13 Jan, 2013 [facility] [place] [facility] [address] [id number] [place] [address]- 8674 12 Jan, 2013 [facility] [address] [id number] [place] [address]- 5747 11 Jan, 2013 [facility] [place] [facility] [address] [id number] [place] [address]- 5561 09 Jan, 2013 [facility] [place] [facility] [address] [id number] [place] [address]- 0441 08 Jan, 2013 [facility] [place] [facility] [address] [id number] [place] [address]- 3584 07 Jan, 2013 [facility] [place] [facility] [address] [id number] [place] [address]- 5126 06 Jan, 2013 [facility] [place] [facility] [address] [id number] [place] [address]- 8712 Nov, [facility] [place] [facility] [address] [id number] [place] [address]- 1232 Oct, [facility] [place] [facility] [address] [id number] [place] [address]- 9041 Oct, [facility] [place] [facility] [address] [id number] [place] [address]- 3234 Oct, [facility] [place] [facility] [address] [id number] [place] [address]- 2934 Oct, [facility] [place] [facility] [address] [id number] [place] [address]- 9605 Sep, [facility] [place] [facility] [address] [id number] [place] [address]- 0297 Sep, [facility] [place] [facility] [address] [id number] [place] [address]- 6096 Sep, [facility] [place] [facility] [address] [id number] [place] [address]- 1910 Sep, [facility] [place] [facility] [address] [id number] [place] [address]- 5099 Sep, [facility] [place] [facility] [address] [id number] [place] [address]- 1485 Sep, [facility] [place] [facility] [address] [id number], [place] [address]- 6437 Sep, [facility] [place] [facility] [address] [id number], [place] [address]- 1136 Sep, [facility] [place] [facility] [address] [id number] [place] [address]- 2615 Sep, [facility] [place] [facility] [address] [id number], [place] [address]- 8637 Sep, [facility] [place] [facility] [address] [facility] [id number], [place] [address]- 5202 Sep, [facility] [place] [facility] [address] [id number] [place] [address]- 9512 Aug, [facility] [place] [facility] [address] [id number] [place] [address]- 6176 Aug, [facility] [place] [facility] [address] [id number] [place] [address]16 Aug, [facility] [place] [facility] [address] [id number] [place] [address]- 5936 28 Jul, 2012 [facility] [place] [facility] [address] [id number] [place] [address]- 8533 25 Jul, 2012 [facility] [place] [facility] [address] [id number] [place] [address]- 3472 19 Jul, 2012 [facility] [place] [facility] [address] [id number] [place] [address]- 7747 17 Jul, 2012 [facility] [place] [facility] [address] [id number] [place] [address]- 3132 20 Jun, 2012 [facility] [place] [facility] [address] [id number] [place] [address]- 2299 16 Jun, 2012 [facility] [place] [facility] [address] [id number] [place] [address]- 9134 15 Jun, 2012 [facility] [place] [facility] [address] [id number] [place] [address]- 7274 15 Jun, 2012 [facility] [place] [facility] [address] [id number] [place] [address]- 1850 Jun, [facility] [place] [facility] [address] [id number] [place] [address]- 3791 March, [facility] [place] [facility] [address] [id number] [place] [address]- 7990 Feb, [facility] [place] [facility] [address] [id number] [place] [address]- 4876 Jan, [facility] [place] [facility] [address] [id number] [place] [address] Jan, [facility] [place] [facility] [address] [id number] [place] [address]- 0826 Jan, [facility] [place] [facility] [address] [id number] [place] [address]- 9076 14 Jan, 2012 [facility] [place] [facility] [address] [id number] [place] [address]- 3756 14 Jan, 2012 [facility] [place] [facility] [address] [id number] [place] [address]- 0289 14 Jan, 2012 [facility] [place] [facility] [address] [id number] [place] [address]- 2567 28 Dec, 2011 [facility] [place] [facility] [address] [id number] [place] [address]- 8156 27 Dec, 2011 [facility] [place] [facility] [address] [id number] [place] [address]- 4116 23 Dec, 2011 [facility] [place] [facility] [address] [id number] [place] [address]- 7550 21 Dec, 2011 [facility] [place] [facility] [address] [id number] [place] [address]- 9449 20 Dec, 2011 [facility] [place] [facility] [address] [id number] [place] [address]- 2601 19 Dec, 2011 [facility] [place] [facility] [address] [id number] [place] [address]- 4462 17 Dec, 2011 [facility] [place] [facility] [address] [id number] [place] [address]- 2547 16 Dec, 2011 [facility] [place] [facility] [address] [id number] [place] [address]- 5203 Nov, [facility] [place] [facility] [address] [id number] [place] [address]- 2542 Oct, [facility] [place] [facility] [address] [id number] [place] [address]- 5944 18 Sep, 2011 [facility] [place] [facility] [address] [facility] [id number] [place] [address]- 3728 18 Sep, 2011 [facility] [address] [facility] [id number], [place] [address]- 2862 Sep, [facility] [address] [id number], [place] [address]- 8789 Sep, [facility] [address] [facility] [id number], [place] [address]- 5084 Sep, [facility] [address] [id number], [place] [address]- 4108 Sep, [facility] [address] [facility] [id number][place] 5425 Jan, [facility] [address] [id number], [place] [address]- 1084 Apr, IMMUNIZATIONS No Known Immunizations SOCIAL HISTORY Never Assessed REASON FOR VISIT med refills PLAN OF CARE VITAL SIGNS MEDICATIONS Medication Instructions Dosage Frequency Start Date End Date Duration Status Seroquel 100 mg Orally Once a day 1 tablet 24h 30 days Active RESULTS No Results PROCEDURES [...]
--- OUTSIDE RECORDS SUMMARY | 2018-08-05 20:38 | XMS REPORT ---
Author Author ETHAN GOMEZ Organization [facility] Address [address] [place] [address] Care Team Providers Care Compliance Paralegal Name Role Phone ETHAN GOMEZ Unavailable PROBLEMS Type Condition ICD9-CM Code [id number] Code Onset Dates Condition Status SNOMED Code Problem Generalized anxiety disorder F41.1 Active 38229247 Problem Acute non intractable tension-type headache G44.209 Active 986659668 Problem Acute right-sided low back pain with right-sided sciatica M54.41 Active 757608280 Problem Post traumatic stress disorder F43.10 Active 41511848 Problem Bipolar disorder, current episode mixed, moderate F31.62 Active 151439096 Problem Endometriosis N80.9 Active 078226881 Problem Borderline personality disorder F60.3 Active [id number] ALLERGIES No Information ENCOUNTERS Encounter Location Date Diagnosis [facility] [id number] [place] [address] 33382- 5011 May, [facility] [id number] [place] [address] [id number] Apr, Dental examination Z01.20 [facility] [id number] [place] [address] 16117 -9258 Apr, [facility] [id number] [place] [address] 64714- 3602 Apr, Dental examination Z01.20 [facility] [id number] [place] [address] 66882 -0778 Apr, Tooth pain K08.89 [facility] [address] 00216- 7330 06 Apr, 2018 Bipolar disorder, current episode mixed, moderate F31.62 ; Post traumatic stress disorder F43.10 and Borderline personality disorder F60.3 [facility] [id number] [place] [address] 79780 -4110 March, Abdominal pain R10.9 ; UTI symptoms R39.9 and Other microscopic hematuria R31.29 [facility] [id number] [place] [address] 24087- 1163 March, [facility] [id number] [place] [address] 29623- 5557 March, Bipolar disorder, current episode mixed, moderate F31.62 ; Post traumatic stress disorder F43.10 and Borderline personality disorder F60.3 [facility] [facility] [id number] [place] [address] 67211- 6941 Feb, Encounter for immunization Z23 [facility] [facility] [id number] [place] [address] 77605- 7173 Feb, Bipolar disorder, current episode mixed, moderate F31.62 ; Post traumatic stress disorder F43.10 and Borderline personality disorder F60.3 [place] [id number] [place] [address] 11377- 2872 Feb, Bipolar disorder, current episode mixed, moderate F31.62 ; Post traumatic stress disorder F43.10 ; Borderline personality disorder F60.3 and 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 [place] [facility] [id number] [place] [address] 49384- 7646 Jan, Encounter for immunization Z23 [facility] [id number] [place] [address] 43170- 3731 Jan, [facility] [facility] [id number] [place] [address] 89473- 0161 Jan, Bipolar disorder, current episode mixed, moderate F31.62 [facility] [id number] [place] [address] 95965 -5937 Jan, Lumbar back pain M54.5 [facility] [facility] [id number] [place] [address] 47744- 0011 Dec, Low back pain M54.5 [facility] [id number] [place] [address] 08061- 6944 Dec, Bipolar disorder, current episode mixed, moderate F31.62 [facility] [id number] [place] [address] 57822- 1022 Dec, Generalized anxiety disorder F41.1 and Bipolar disorder, current episode mixed, moderate F31.62 [facility] [address] 26880 -0490 Nov, Acute non intractable tension-type headache G44.209 [place] [address] 268778- 6057 Nov, Bipolar disorder, current episode mixed, moderate F31.62 ; Post traumatic stress disorder F43.10 and Borderline personality disorder F60.3 [place] [address] 89036- 3815 Nov, Bipolar disorder, current episode mixed, moderate F31.62 [facility] [place] [id number] [place] [address] 40234 -2874 Nov, Abdominal pain R10.9 ; History of PCOS Z87.42 ; History of endometriosis Z87.42 and Pelvic pain R10.2 [place] [id number] [place] [address] 84438- 9146 Nov, [facility] [address] 80678 -1060 Oct, History of PCOS Z87.42 ; History of endometriosis Z87.42 and Pain R52 [place] [address] 03282- 2816 Oct, Bipolar disorder, current episode mixed, moderate F31.62 ; Post traumatic stress disorder F43.10 and Borderline personality disorder F60.3 [place] [id number] [place] [address] 67498- 1289 Oct, Bipolar disorder, current episode mixed, moderate F31.62 [facility] [address] [place] [address] 48735- 8753 Sep, Bipolar disorder, current episode mixed, moderate F31.62 ; Post traumatic stress disorder F43.10 ; Borderline personality disorder F60.3 and Other nursing home (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 Z79.899 [facility] [id number] [place] [address] 26219- 5169 Sep, Bipolar disorder, current episode mixed, moderate F31.62 [facility] [id number] [place] [address] 26968 -2529 Sep, Endometriosis N80.9 and Acute right-sided low back pain with right-sided sciatica M54.41 [place] [id number] [place] [address] 90260- 6184 Aug, [place] [address] 49179- 0712 Aug, Bipolar disorder, current episode mixed, moderate F31.62 ; Post traumatic stress disorder F43.10 and Borderline personality disorder F60.3 [place] [id number] [place] [address] 74114- 3627 11 Aug, 2017 Bipolar disorder, current episode mixed, moderate F31.62 ; Post traumatic stress disorder F43.10 and Borderline personality disorder F60.3 [place] [id number] [place] [address] 84814- 7148 13 Jul, 2017 Bipolar disorder, current episode mixed, moderate F31.62 ; Post traumatic stress disorder F43.10 and Borderline personality disorder F60.3 [facility] [address] [place] [address] 82843 -3844 11 Jul, 2017 Pharyngitis, unspecified etiology J02.9 and Streptococcal pharyngitis J02.0 [facility] [address] [place] [address] 23668- 8583 16 Jun, 2017 Bipolar disorder, current episode mixed, moderate F31.62 ; Post traumatic stress disorder F43.10 and Borderline personality disorder F60.3 [facility] [id number] [place] [address] 53510- 9756 May, [facility] [id number] [place] [address] 99139- 9435 May, [facility] [id number] [place] [address] 21125- 9985 May, Bipolar disorder, current episode mixed, moderate F31.62 and Generalized anxiety disorder F41.1 [facility] [id number] [place] [address] 93191- 3585 March, Bipolar disorder, current episode mixed, moderate F31.62 and Generalized anxiety disorder F41.1 [facility] [id number] [place] [address] 59196- 5331 March, Pelvic pain R10.2 [facility] [id number] [place] [address] 79552- 9422 March, [facility] [id number] [place] [address] 48557- 7458 Feb, Bipolar disorder, current episode mixed, moderate F31.62 and Generalized anxiety disorder F41.1 [facility] [address] [place] [address] 26914- 1416 Jan, [facility] [id number] [place] [address] 63625- 3099 Jan, Bipolar disorder, current episode mixed, moderate F31.62 [facility] [address] [place] [address] 00265- 7647 Jan, Bipolar disorder, current episode mixed, moderate F31.62 [facility] [address] [place] [address] 58417- 4262 Jan, Bilateral low back pain without sciatica M54.5 [facility] [address] [place] [address] [id number] Jan, Dental caries K02.9 and Dental examination Z01.20 [facility] [address] [id number] 09 Jan, 2017 Encounter for dental examination and cleaning without abnormal findings Z01.20 [facility] [address] [place] [address] 37929904- 8664 06 Jan, 2017 Bipolar disorder, current episode mixed, moderate F31.62 and Generalized anxiety disorder F41.1 [facility] [id number] [place] [address] 21722- 0730 24 Dec, 2016 [facility] [id number] [place] [address] 62594- 0284 Dec, Bipolar disorder, current episode mixed, moderate F31.62 and Generalized anxiety disorder F41.1 [facility] [id number] [place] [address] 44437- 4283 03 Dec, 2016 Other fatigue R53.83 and Orthostatic hypotension I95.1 [facility] [address] [place] [address] [id number] Nov, Dental examination Z01.20 [facility] [id number] [place] [address] 97590 -4821 02 Nov, 2016 Bronchitis J40 [facility] [id number] [place] [address] 49355- 3673 14 Oct, 2016 Generalized anxiety disorder F41.1 [facility] [id number] [place] [address] 62246- 6686 14 Sep, 2016 Bipolar disorder, current episode mixed, moderate F31.62 and Generalized anxiety disorder F41.1 [facility] [id number] [place] [address] 20816- 4803 02 Sep, 2016 Bipolar disorder, current episode mixed, moderate F31.62 and Generalized anxiety disorder F41.1 [facility] [id number] [place] [address] 51919 -3953 08 Jul, 2016 Upper respiratory tract infection, unspecified type J06.9 [facility] [address] [place] [address] 63083- 8070 Jun, Bipolar disorder, current episode mixed, moderate F31.62 and Generalized anxiety disorder F41.1 [facility] [id number] [place] [address] 06859- 6327 Apr, [facility] [id number] [place] [address] 79842- 2772 Apr, Encounter for test, result positive Z32.01 [facility] [id number] [place] [address] 61236- 8647 March, [facility] [id number] [place] [address] 97942- 3570 March, Bipolar disorder, current episode mixed, moderate F31.62 and Generalized anxiety disorder F41.1 [facility] [id number] [place] [address] 21308- 5406 March, Bipolar disorder, current episode mixed, moderate F31.62 and Generalized anxiety disorder F41.1 [facility] [id number] [place] [address] 84194- 0857 March, [facility] [id number] [place] [address] 09438- 7164 March, [facility] [id number] [place] [address] 41117- 5375 Feb, [facility] [id number] [place] [address] 19994- 9196 Feb, [facility] [id number] [place] [address] 00174- 4761 Feb, Bipolar disorder, current episode mixed, moderate F31.62 and Generalized anxiety disorder F41.1 [facility] [address] [place] [address] 88632- 5577 Jan, Abdominal pain R10.9 [facility] [id number] [place] [address] 32871- 2505 14 Jan, 2016 [place] [address] [place] [address] 59700- 3672 29 Dec, 2015 Dental examination Z01.20 [place] [id number] [place] [address] 14565- 4202 22 Dec, 2015 Dental examination Z01.20 and Dental caries K02.9 [place] [id number] [place] [address] 66328- 1023 15 Dec, 2015 Bipolar disorder, current episode mixed, moderate F31.62 and Generalized anxiety disorder F41.1 [place] [id number] [place] [address] 48342- 1665 15 Dec, 2015 [place] [id number] [place] [address] 66040- 5133 Nov, Bipolar disorder, current episode mixed, moderate F31.62 ; Generalized anxiety disorder F41.1 and Seizure-like activity R56.9 [place] [address] [place] [address] 78782- 3155 Oct, [place] [id number] [place] [address] 95269- 3529 Oct, Bipolar disorder, current episode mixed, moderate F31.62 [place] [id number] [place] [address] 67689- 7095 14 Oct, 2015 Well woman exam Z01.419 [...] Tobacco use Z72.0 and Hot flashes N95.1 [place] [address] [place] [address] 13758- 4016 09 Oct, 2015 Seizure-like activity R56.9 and Irregular periods N92.6 [place] [address] 79830- 0018 Oct, Bipolar disorder, current episode mixed, moderate F31.62 ; Generalized anxiety disorder F41.1 and Underweight R63.6 [place] [address] 59759- 5877 Oct, [place] [address] 11662- 2842 Oct, Generalized anxiety disorder F41.1 and Unspecified mood [ affective] disorder F39 [facility] [address] 84330 -1298 Oct, Back pain M54.9 and Anxiety F41.9 [place] [address] 38416- 6433 Oct, [facility] [address] 83689 -8121 Sep, Arm pain, left M79.602 [place] [address] 57474- 0378 Sep, [facility] [address] [id number] Sep, Dental examination Z01.20 and Dental caries K02.9 [place] [address] 13652- 1994 Sep, Generalized anxiety disorder F41.1 and Unspecified episodic mood disorder F39 [place] [address] 86953- 8353 Sep, Bilateral low back pain without sciatica M54.5 and Seizure- like activity R56.9 [place] [address] 41551- 8585 Aug, [place] [address] [address]- 0289 Aug, [facility] [id number] [place] [address] 46379- 7153 Aug, [facility] [id number] [place] [address] 01748- 2953 Aug, Visual changes H53.9 and Bilateral low back pain without sciatica M54.5 [facility] [id number] [place] [address] 78273- 1987 Jul, [facility] [id number] [place] [address] 57519- 4197 Jun, Bipolar I disorder, most recent episode (or current) mixed, moderate 296.62 ; Generalized anxiety disorder 300.02 and High risk medication use V58.69 [facility] [id number] [place] [address] 71499- 5264 Jun, [facility] [id number] [place] [address] 86652- 3615 May, [facility] [id number] [place] [address] 38073- 4452 May, Bipolar I disorder, most recent episode (or current) mixed, moderate 296.62 and Generalized anxiety disorder 300.02 [facility] [address] [id number] May, Dental examination V72.2 [facility] [address] [place] [address] 82359- 9981 March, Bipolar I disorder, most recent episode (or current) mixed, moderate 296.62 and Generalized anxiety disorder 300.02 [facility] [id number] [place] [address] 36180- 2087 March, [facility] [id number] [place] [address] 61075- 5844 March, [facility] [id number] [place] [address] 42355- 3161 March, Underweight 783.22 ; Hand pain, right 729.5 and Reflux gastritis 535.40 [facility] [address] [place] [address]- 7016 14 Feb, 2015 [facility] [address] [address]- 2096 13 Feb, 2015 [facility] [id number] [place] [address] 27768- 5797 18 Jan, 2015 [facility] [id number] [place] [address] 35967- 8893 18 Jan, 2015 [facility] [id number] [place] [address] 73753- 5882 16 Jan, 2015 [facility] [id number] [place] [address] 86568- 9026 16 Jan, 2015 [facility] [address] [place] [address] 64833- 6320 Jan, [facility] [address] [address]- 4535 Jan, [facility] [address] [address]- 5790 05 Jan, 2015 [facility] [address]- 5900 05 Jan, 2015 [facility] [address] [address]- 1447 Jan, [facility] [address] [address]- 1649 Jan, [facility] [id number] [address]- 7946 Jan, [facility] [address] [address]- 3506 Jan, [facility] [address] [address]- 6666 20 Dec, 2014 [facility] [place] [facility] [address] [id number] [place] [address]- 1380 20 Dec, 2014 [facility] [place] [facility] [address] [id number] [place] [address]- 5084 19 Dec, 2014 [facility] [place] [facility] [address] [facility] [id number] [place] [address]- 2674 19 Dec, 2014 [facility] [place] [facility] [address] [facility]] [id number] [place] [address]- 6527 18 Dec, 2014 [facility] [place] [facility] [address] [facility]] [id number] [place] [address]- 9208 17 Dec, 2014 [facility] [place] [facility] [address] [facility]] [id number] [place] [address]- 7890 17 Dec, 2014 [facility] [place] [facility] [id number] [place] [address]- 2413 16 Dec, 2014 [facility] [place] [facility] [address] [facility]] [id number] [place] [address]- 5837 16 Dec, 2014 [facility] [place] [facility] [address] [facility]] [id number] [place] [address]- 5308 05 Dec, 2014 [facility] [place] [facility] [address] [facility]] [id number] [place] [address]- 6986 05 Dec, 2014 [facility] [place] [facility] [address] [facility]] [id number] [place] [address]- 2542 05 Dec, 2014 [facility] [place] [facility] [address] [facility]] [id number] [place] [address]- 2540 05 Dec, 2014 [facility] [place] [facility] [address] [facility]] [id number] [place] [address]- 2690 04 Dec, 2014 [facility] [place] [facility] [address] [facility]] [id number] [place] [address]- 2547 04 Dec, 2014 [facility] [place] [facility] [address] [facility]] [id number] [place] [address]- 2548 Dec, [facility] [place] [facility] [address] [id number] [place] [address]- 2179 Dec, [facility] [place] [facility] [address] [id number] [place] [address]- 0546 Dec, [facility] [place] [facility] [address] [id number] [place] [address]- 2546 Dec, [facility] [place] [facility] [address] [id number], [place] [address]- 2595 Nov, [facility] [place] [facility] [address] [id number] [place] [address]- 4696 Nov, [facility] [place] [facility] [address] [id number], [place] [address]- 4741 Nov, [facility] [place] [facility] [address] [id number], [place] [address]- 6407 Nov, [facility] [place] [facility] [address] [id number], [place] [address]- 3013 Nov, [facility] [place] [facility] [address] [id number], [place] [address] Nov, [facility] [place] [facility] [address] [id number] [id number] Nov, [facility] [place] [facility] [address] [id number], [place] [address] Nov, [facility] [place] [facility] [address] [id number], [place] [address] Nov, [facility] [place] [facility] [address] [id number] [id number] Nov, [facility] [place] [facility] [address] [id number], [place] [address] Nov, [facility] [place] [facility] [address] [id number], [place] [address] Nov, [facility] [place] [facility] [address] [id number] [place] [address] 31 Oct, 2014 [facility] [place] [facility] [address] [id number] [place] [address] 31 Oct, 2014 [facility] [place] [facility] [address] [id number] [place] [address] 30 Oct, 2014 [facility] [place] [facility] [address] [id number] [place] [address] 30 Oct, 2014 [facility] [place] [facility] [address] [id number] [place] [address] Oct, [facility] [place] [facility] [address] [id number] [place] [address] Oct, [facility] [place] [facility] [address] [id number] [place] [address] Oct, [facility] [place] [facility] [address] [id number] [place] [address] Oct, [facility] [place] [facility] [address] [id number] [place] [address] Oct, [facility] [place] [facility] [address] [id number] [place] [address] Oct, [facility] [place] [facility] [address] [facility]NOTE 3] [id number] [place] [address] Oct, [facility] [place] [facility] [address] [id number] [place] [address] 05 Oct, 2014 [facility] [place] [facility] [address] [id number] [place] [address] Sep, [facility] [place] [facility] [address] [id number] [place] [address] Sep, [facility] [place] [facility] [address] [id number] [place] [address] Sep, [facility] [place] [facility] [address] [id number] [place] [address] Sep, [facility] [place] [facility] [address] [id number] [place] [address] Sep, [facility] [place] [facility] [address] [address] [id number] [place] [address] Sep, [facility] [place] [facility] [address] [id number] [place] [address] Sep, [facility] [place] [facility] [address] [id number] [place] [address]79 Sep, [facility] [place] [facility] [address] [id number] [place] [address] Aug, [facility] [place] [facility] [address] [id number] [place] [address] 8929 Aug, [facility] [place] [facility] [address] [id number] [place] [address] 6973 Aug, [facility] [place] [facility] [address] [id number] [place] [address] 6[address] Aug, [facility] [place] [facility] [address] [id number] [place] [address] 64[address] Aug, [facility] [place] [facility] [address] [id number] [place] [address] 3873 Aug, [facility] [place] [facility] [address] [id number] [place] [address] 5870 Aug, [facility] [place] [facility] [address] [id number] [place] [address] 6770 Aug, [facility] [place] [facility] [address] [id number] [place] [address] 4965 Aug, [facility] [place] [facility] [address] [id number] [place] [address] 0714 Aug, [facility] [place] [facility] [address] [id number] [place] [address] 1975 Aug, [facility] [place] [facility] [address] [id number] [place] [address] 3738 Aug, [facility] [place] [facility] [address] [id number] [place] [address] 0444 Aug, [facility] [place] [facility] [address] [id number] [place] [address] 2606 Jul, [facility] [place] [facility] [address] [id number] [place] [address] 1876 Jul, [facility] [place] [facility] [address] [id number] [place] [address] 6605 Jul, [facility] [place] [facility] [address] [id number] [place] [address] 1285 Jul, [facility] [place] [facility] [address] [id number] [place] [address]- 2211 Jun, [facility] [place] [facility] [address] [id number] [place] [address] 1033 Jun, [facility] [place] [facility] [address] [id number] [place] [address] 6[address] Jun, [facility] [place] [facility] [address] [id number] [place] [address]- 7459 Jun, [facility] [place] [facility] [address] [id number] [place] [address] 3046 Jun, [facility] [place] [facility] [address] [id number] [place] [address]- 3355 Jun, [facility] [place] [facility] [address] [id number] [place] [address] 9306 May, [facility] [place] [facility] [address] [id number] [place] [address]- 8096 May, [facility] [place] [facility] [address] [id number] [place] [address]- 6847 May, [facility] [place] [facility] [address] [id number] [place] [address] 2854 May, [facility] [place] [facility] [address] [id number] [place] [address] 0973 Apr, [facility] [address] [id number] [place] [address] 3964 Apr, [facility] [place] [facility] [address] [id number] [place] [address] 8282 March, [facility] [address] [id number] [place] [address]96 March, [facility] [place] [facility] [address] [id number] [place] [address] 48[address] March, [facility] [address] [id number] [place] [address] March, [facility] [address] [id number] [place] [address] 2413 March, [facility] [address] [id number] [place] [address] 3532 March, [facility] [address] [id number] [place] [address] 5187 Feb, [facility] [place] [facility] [address] [id number] [place] [address] 3[address] Feb, [facility] [address] [id number] [place] [address] 1063 Dec, [facility] [place] [facility] [address] [id number] [place] [address] 1717 Dec, [facility] [place] [facility] [address] [id number] [place] [address] 0692 Nov, [facility] [place] [facility] [address] [id number] [place] [address]- 4848 Nov, [facility] [place] [facility] [address] [id number] [place] [address]- 6896 Sep, [facility] [place] [facility] [address] [id number] [place] [address] 9929 Sep, [facility] [place] [facility] [address] [id number] [place] [address] 4258 Sep, [facility] [place] [facility] [address] [id number] [place] [address]- 8964 Sep, [facility] [place] [facility] [address] [id number] [place] [address] Sep, [facility] [place] [facility] [address] [id number] [place] [address]- 1472 Sep, [facility] [place] [facility] [address] [id number] [place] [address]- 0893 Sep, [facility] [place] [facility] [address] [id number] [place] [address]- 0277 Aug, [facility] [place] [facility] [address] [id number] [place] [address] 8958 Aug, [facility] [place] [facility] [address] [id number], [place] [address] 8746 Aug, [facility] [place] [facility] [address] [id number] [place] [address]- 3244 Aug, [facility] [place] [facility] [address] [id number], [place] [address] 8049 Aug, [facility] [place] [facility] [address] [id number], [place] [address] 5061 Aug, [facility] [place] [facility] [address] [id number], [place] [address] 7[address] 19 Jul, 2013 [facility] [place] [facility] [address] [id number] [place] [address]- 9500 19 Jul, 2013 [facility] [place] [facility] [address] [id number], [place] [address] 4779 16 Jul, 2013 [facility] [place] [facility] [address] [id number] [place] [address]- 8202 13 Jul, 2013 [facility] [place] [facility] [address] [id number] [place] [address]- 7529 Jun, [facility] [place] [facility] [address] [id number] [place] [address]- 0979 Jun, [facility] [place] [facility] [address] [id number] [place] [address]- 3453 Jun, [facility] [place] [facility] [address] [id number] [place] [address]- 6229 Jun, [facility] [place] [facility] [address] [id number] [place] [address]- 4600 Jun, [facility] [place] [facility] [address] [id number] [place] [address]- 1287 Jun, [facility] [place] [facility] [address] [id number] [place] [address]- 4765 Jun, [facility] [place] [facility] [address] [id number] [place] [address]- 4417 May, [facility] [place] [facility] [address] [id number] [place] [address]- 4339 May, [facility] [place] [facility] [address] [id number] [place] [address]- 4056 May, [facility] [place] [facility] [address] [id number] [place] [address]- 7210 May, [facility] [place] [facility] [address] [id number] [place] [address]- 6238 May, [facility] [place] [facility] [address] [id number] [place] [address]- 9132 May, [facility] [place] [facility] [address] [id number] [place] [address]- 9087 May, [facility] [place] [facility] [address] [id number] [place] [address]- 3247 Apr, [facility] [place] [facility] [address] [id number] [place] [address]- 2577 Apr, [facility] [place] [facility] [address] [id number] [place] [address]- 0618 27 Apr, 2013 [facility] [place] [facility] [address] [id number] [place] [address]- 4847 26 Apr, 2013 [facility] [place] [facility] [address] [id number] [place] [address]- 0661 20 Apr, 2013 [facility] [place] [facility] [address] [id number] [place] [address]- 9139 18 Apr, 2013 [facility] [place] [facility] [address] [id number] [place] [address]- 5898 18 Apr, 2013 [facility] [place] [facility] [address] [id number] [place] [address]- 7697 18 Apr, 2013 [facility] [place] [facility] [address] [id number] [place] [address]- 3781 17 Apr, 2013 [facility] [place] [facility] [address] [id number] [place] [address]- 6194 14 Apr, 2013 [facility] [place] [facility] [address] [id number] [place] [address]- 7345 14 Apr, 2013 [facility] [place] [facility] [address] [id number] [place] [address]- 3502 11 Apr, 2013 [facility] [place] [facility] [address] [id number] [place] [address]- 5811 10 Apr, 2013 [facility] [place] [facility] [address] [id number] [place] [address]- 1581 09 Apr, 2013 [facility] [place] [facility] [address] [id number] [place] [address]- 8271 07 Apr, 2013 [facility] [place] [facility] [address] [id number] [place] [address]- 1922 06 Apr, 2013 [facility] [place] [facility] [address] [id number] [place] [address]- 0613 06 Apr, 2013 [facility] [place] [facility] [address] [id number] [place] [address]- 2859 Apr, [facility] [address] [id number] [place] [address]- 7889 Apr, [facility] [address] [id number] [place] [address]- 3305 March, [facility] [address] [id number] [place] [address]- 7815 March, [facility] [address] [id number] [place] [address]- 6902 March, [facility] [address] [id number] [place] [address]- 0769 March, [facility] [address] [id number] [place] [address]- 0860 March, [facility] [address] [id number] [place] [address]- 6852 March, [facility] [address] [id number] [place] [address]- 7393 March, [facility] [address] [id number] [place] [address]- 0914 Feb, [facility] [place] [facility] [address] [id number] [place] [address]- 5558 Feb, [facility] [address] [id number] [place] [address]- 5832 Jan, [facility] [place] [facility] [address] [id number] [place] [address]- 3411 18 Jan, 2013 [facility] [place] [facility] [address] [id number] [place] [address]- 6097 15 Jan, 2013 [facility] [place] [facility] [address] [id number] [place] [address]- 3507 14 Jan, 2013 [facility] [place] [facility] [address] [id number] [place] [address]- 1357 13 Jan, 2013 [facility] [place] [facility] [address] [id number] [place] [address]- 1987 12 Jan, 2013 [facility] [address] [id number] [place] [address]- 4951 11 Jan, 2013 [facility] [address] [id number] [place] [address]- 9618 09 Jan, 2013 [facility] [address] [id number] [place] [address]- 1617 08 Jan, 2013 [facility] [address] [id number] [place] [address]- 6308 07 Jan, 2013 [facility] [address] [id number] [place] [address]- 0352 06 Jan, 2013 [facility] [address] [id number] [place] [address]- 9470 17 Nov, 2012 [facility] [address] [id number] [place] [address]- 6673 Oct, [facility] [address] [id number] [place] [address]- 6684 Oct, [facility] [address] [id number] [place] [address]- 0491 Oct, [facility] [address] [id number] [place] [address]- 3970 Oct, [facility] [address] [id number] [place] [address]- 2486 30 Sep, 2012 [facility] [address] [id number] [place] [address]- 8308 30 Sep, 2012 [facility] [place] [facility] [address] [id number] [place] [address]- 6080 Sep, [facility] [place] [facility] [address] [id number] [place] [address]- 2545 16 Sep, 2012 [facility] [address] [id number] [place] [address]- 5189 Sep, [facility] [place] [facility] [address] [id number] [place] [address]- 0191 16 Sep, 2012 [facility] [place] [facility] [address] [id number] [place] [address]- 0756 Sep, [facility] [place] [facility] [address] [id number] [place] [address] 2541 Sep, [facility] [place] [facility] [address] [id number] [place] [address] 2548 Sep, [facility] [place] [facility] [address] [id number] [place] [address]- 4436 Sep, [facility] [place] [facility] [address] [id number] [place] [address]- 4005 Sep, [facility] [place] [facility] [address] [id number] [place] [address]- 9518 Aug, [facility] [place] [facility] [address] [id number] [place] [address]- 9152 Aug, [facility] [place] [facility] [address] [id number] [place] [address]- 3225 Aug, [facility] [place] [facility] [address] [id number] [place] [address]- 4198 28 Jul, 2012 [facility] [place] [facility] [address] [id number] [place] [address]- 0615 25 Jul, 2012 [facility] [place] [facility] [address] [id number], [place] [address]- 8713 19 Jul, 2012 [facility] [place] [facility] [address] [id number] [place] [address]- 5929 17 Jul, 2012 [facility] [place] [facility] [address] [id number] [place] [address]- 2050 20 Jun, 2012 [facility] [place] [facility] [address] [id number] [place] [address] 2544 16 Jun, 2012 [facility] [place] [facility] [address] [id number], [place] [address]- 9398 15 Jun, 2012 [facility] [address] [id number] [place] [address]- 4660 15 Jun, 2012 [facility] [place] [facility] [address] [id number] [place] [address]- 9939 13 Jun, 2012 [facility] [place] [facility] [address] [id number] [place] [address]- 0774 March, [facility] [place] [facility] [address] [id number] [place] [address]- 4568 04 Feb, 2012 [facility] [place] [facility] [address] [id number] [place] [address]- 3546 28 Jan, 2012 [facility] [place] [facility] [address] [id number] [place] [address]- 5186 27 Jan, 2012 [facility] [address] [id number] [place] [address]- 0114 Jan, [facility] [place] [facility] [address] [id number] [place] [address]- 7604 14 Jan, 2012 [facility] [place] [facility] [address] [id number] [place] [address]- 3159 14 Jan, 2012 [facility] [place] [facility] [address] [id number] [place] [address]- 9283 14 Jan, 2012 [facility] [place] [facility] [address] [id number] [place] [address]- 4181 28 Dec, 2011 [facility] [place] [facility] [address] [id number] [place] [address]- 8019 27 Dec, 2011 [facility] [place] [facility] [address] [id number] [place] [address]- 5965 23 Dec, 2011 [facility] [place] [facility] [address] [id number] [place] [address]- 4547 21 Dec, 2011 [facility] [place] [facility] [address] [id number] [place] [address]- 4235 20 Dec, 2011 [facility] [id number] [address]- 0873 Dec, [facility] [id number] [address] Dec, [facility] [id number], [place] [address]- 4642 Dec, [facility] [id number] [address]48 Nov, [facility] [id number] [address] Oct, [facility] [id number], [place] [address]- 0123 Sep, [facility] [id number], [place] [address]- 9411 Sep, [facility] [id number], [place] [address]- 0358 Sep, [facility] [id number], [place] [address]- 7294 Sep, [facility] [id number] [address]- 9288 Sep, [facility] [id number] [address]- 9177 Sep, [facility] [id number] [address]- 0675 Jan, [facility] [id number] [address]- 0666 Apr, IMMUNIZATIONS No Known Immunizations SOCIAL HISTORY Never Assessed REASON FOR VISIT intake PLAN OF CARE Activity Details Follow Up 2 Weeks Reason: F/U VITAL SIGNS MEDICATIONS Medication Instructions Dosage Frequency Start Date End Date Duration Status Oxycodone-Acetaminophen 10-325 MG Orally every 4 hrs 1 tablet as needed 4h Active Zofran ODT 4 MG Orally every 8 hrs 1 tablet on the tongue and allow to dissolve 8h Nov, 7 days Not-Taking Lamictal 150 MG Orally Once a day 1 tablet 24h Aug, Active Remeron 30 MG Orally Once a day at bedtime 1 tablet Oct, Active Klonopin 0.5 MG Orally three times a day as needed 1 tablet Aug, Active Abilify 5 mg Orally Once a day 1 tablet 24h Nov, 30 day(s) Active RESULTS No Results PROCEDURES Procedure Date Ordered Result Body Site Psych diagnostic evaluation, established patient Dec 26, 2017 INSTRUCTIONS MEDICATIONS ADMINISTERED No Known Medications MEDICAL (GENERAL) HISTORY Type Description Date Medical History bipolar disorder Medical History PTSD Medical History endometriosis Medical History PCOS (Polycystic Ovary Syndrome) Medical History Seizures Medical History Endometriosis Medical History History of Self Harm Surgical History laparoscopy for endometriosis 2008 Surgical History tonsillectomy Surgical History partial hysterectomy 12/2016 Surgical History Left ovary removed 12/2016 Hospitalization History [facility] x[facility] 2009 most recent admission Hospitalization History [facility]; overdose 2010 Hospitalization History child 11/29/2016
--- OUTSIDE RECORDS SUMMARY | 2018-08-05 20:39 | XMS REPORT ---
Author Author TOMASZ MARGARITA [facility] Address [address] [place] [address] Care Team Providers Care Laser Engraver Name Role Phone TOMASZ, MARGARITA Unavailable PROBLEMS Type Condition ICD9-CM Code NIL62-YG Code Onset Dates Condition Status SNOMED Code Problem Generalized anxiety disorder F41.1 Active 69441878 Problem Acute non intractable tension-type headache G44.209 Active 378353287 Problem Acute right-sided low back pain with right-sided sciatica M54.41 Active 627959538 Problem Post traumatic stress disorder F43.10 Active 10686966 Problem Bipolar disorder, current episode mixed, moderate F31.62 Active 418043220 Problem Endometriosis N80.9 Active 777497197 Problem Borderline personality disorder F60.3 Active 42773954 ALLERGIES No Information ENCOUNTERS Encounter Location Date Diagnosis [facility] [address] [address] May, [facility] [address] [id number] Apr, Dental examination Z01.20 [facility] [id number] [place] [address] 28990 -3928 Apr, [facility] [address] 64082- 0064 Apr, Dental examination Z01.20 [facility] [address] 85[address]5923 Apr, Tooth pain K08.89 [facility] [address] 0[address]- 5364 06 Apr, 2018 Bipolar disorder, current episode mixed, moderate F31.62 ; Post traumatic stress disorder F43.10 and Borderline personality disorder F60.3 [facility] [id number] [place] [address] 34606 -3356 March, Abdominal pain R10.9 ; UTI symptoms R39.9 and Other microscopic hematuria R31.29 [facility] [id number] [place] [address] 97433- 1191 March, [facility] [address] 55308- 5132 March, Bipolar disorder, current episode mixed, moderate F31.62 ; Post traumatic stress disorder F43.10 and Borderline personality disorder F60.3 [facility] [id number] [place] [address] 62501- 3297 Feb, Encounter for immunization Z23 [facility] [id number] [place] [address] 94924- 8127 Feb, Bipolar disorder, current episode mixed, moderate F31.62 ; Post traumatic stress disorder F43.10 and Borderline personality disorder F60.3 [facility] [id number] [place] [address] 91390- 5066 Feb, Bipolar disorder, current episode mixed, moderate F31.62 ; Post traumatic stress disorder F43.10 ; Borderline personality disorder F60.3 and Other snf (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 Z79.899 [facility] [id number] [place] [address] 97324- 9265 Jan, Encounter for immunization Z23 [facility] [id number] [place] [address] 35209- 9497 Jan, [facility] [id number] [place] [address] 28419- 8117 Jan, Bipolar disorder, current episode mixed, moderate F31.62 [facility] [id number] [place] [address] 14349 -3624 Jan, Lumbar back pain M54.5 [facility] [id number] [place] [address] 97345- 7163 Dec, Low back pain M54.5 [facility] [id number] [place] [address] 03428- 4602 Dec, Bipolar disorder, current episode mixed, moderate F31.62 [facility] [id number] [place] [address] 16649- 6621 Dec, Generalized anxiety disorder F41.1 and Bipolar disorder, current episode mixed, moderate F31.62 [facility] [address] 90210 -7486 Nov, Acute non intractable tension-type headache G44.209 [place] [address] [id number]- 4949 Nov, Bipolar disorder, current episode mixed, moderate F31.62 ; Post traumatic stress disorder F43.10 and Borderline personality disorder F60.3 [facility] [id number] [place] [address] 86271- 1583 Nov, Bipolar disorder, current episode mixed, moderate F31.62 [facility] [place] [id number] [place] [address] 66972 -6379 Nov, Abdominal pain R10.9 ; History of PCOS Z87.42 ; History of endometriosis Z87.42 and Pelvic pain R10.2 [facility] [place] [id number] [place] [address] 41557- 2144 Nov, [facility] [id number] [place] [address] 21608 -1814 Oct, History of PCOS Z87.42 ; History of endometriosis Z87.42 and Pain R52 [facility] [address] 77586- 6063 Oct, Bipolar disorder, current episode mixed, moderate F31.62 ; Post traumatic stress disorder F43.10 and Borderline personality disorder F60.3 [facility] [place] [id number] [place] [address] 44875- 4540 Oct, Bipolar disorder, current episode mixed, moderate F31.62 [facility] [id number] [place] [address] 03157- 8133 Sep, Bipolar disorder, current episode mixed, moderate F31.62 ; Post traumatic stress disorder F43.10 ; Borderline personality disorder F60.3 and 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 (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 Z79.899 [facility] [id number] [place] [address] 41901- 9639 Sep, Bipolar disorder, current episode mixed, moderate F31.62 [facility] [id number] [place] [address] 40431 -7747 Sep, Endometriosis N80.9 and Acute right-sided low back pain with right-sided sciatica M54.41 [facility] [id number] [place] [address] 07946- 3952 Aug, [facility] [id number] [place] [address] 16665- 0347 Aug, Bipolar disorder, current episode mixed, moderate F31.62 ; Post traumatic stress disorder F43.10 and Borderline personality disorder F60.3 [facility] [id number] [place] [address] 03308- 6200 11 Aug, 2017 Bipolar disorder, current episode mixed, moderate F31.62 ; Post traumatic stress disorder F43.10 and Borderline personality disorder F60.3 [place] [address] [place] [address] 60013- 7307 13 Jul, 2017 Bipolar disorder, current episode mixed, moderate F31.62 ; Post traumatic stress disorder F43.10 and Borderline personality disorder F60.3 [facility] [id number] [place] [address] 20218 -5983 11 Jul, 2017 Pharyngitis, unspecified etiology J02.9 and Streptococcal pharyngitis J02.0 [facility] [address] [place] [address] 53583- 6314 16 Jun, 2017 Bipolar disorder, current episode mixed, moderate F31.62 ; Post traumatic stress disorder F43.10 and Borderline personality disorder F60.3 [facility] [id number] [place] [address] 25656- 2462 May, [facility] [id number] [place] [address] 54665- 6717 May, [facility] [id number] [place] [address] 18047- 3014 May, Bipolar disorder, current episode mixed, moderate F31.62 and Generalized anxiety disorder F41.1 [facility] [id number] [place] [address] 97860- 0315 March, Bipolar disorder, current episode mixed, moderate F31.62 and Generalized anxiety disorder F41.1 [facility] [id number] [place] [address] 58816- 6305 March, Pelvic pain R10.2 [facility] [id number] [place] [address] 96837- 7695 March, [facility] [id number] [place] [address] 23319- 0563 Feb, Bipolar disorder, current episode mixed, moderate F31.62 and Generalized anxiety disorder F41.1 [facility] [id number] [place] [address] 58800- 3925 Jan, [facility] [id number] [place] [address] 88303- 6919 Jan, Bipolar disorder, current episode mixed, moderate F31.62 [facility] [address] [place] [address] 02663- 3932 Jan, Bipolar disorder, current episode mixed, moderate F31.62 [facility] [id number] [place] [address] 73511- 8047 Jan, Bilateral low back pain without sciatica M54.5 [facility] [address] [place] [address] [id number] Jan, Dental caries K02.9 and Dental examination Z01.20 [facility] [address] [address] 09 Jan, 2017 Encounter for dental examination and cleaning without abnormal findings Z01.20 [facility] [address] [place] [address] 294754- 6311 06 Jan, 2017 Bipolar disorder, current episode mixed, moderate F31.62 and Generalized anxiety disorder F41.1 [facility] [id number] [place] [address] 93674- 8581 Dec, [facility] [id number] [place] [address] 98673- 7394 Dec, Bipolar disorder, current episode mixed, moderate F31.62 and Generalized anxiety disorder F41.1 [facility] [id number] [place] [address] 34045- 0605 03 Dec, 2016 Other fatigue R53.83 and Orthostatic hypotension I95.1 [facility] [address] [place] [address] [id number] Nov, Dental examination Z01.20 [facility] [id number] [place] [address] 84763 -9392 02 Nov, 2016 Bronchitis J40 [facility] [id number] [place] [address] 50012- 8617 14 Oct, 2016 Generalized anxiety disorder F41.1 [facility] [id number] [place] [address] 40263- 6137 14 Sep, 2016 Bipolar disorder, current episode mixed, moderate F31.62 and Generalized anxiety disorder F41.1 [facility] [id number] [place] [address] 07984- 7719 02 Sep, 2016 Bipolar disorder, current episode mixed, moderate F31.62 and Generalized anxiety disorder F41.1 [facility] [id number] [place] [address] 19021 -8248 08 Jul, 2016 Upper respiratory tract infection, unspecified type J06.9 [facility] [id number] [place] [address] 69815- 0320 Jun, Bipolar disorder, current episode mixed, moderate F31.62 and Generalized anxiety disorder F41.1 [facility] [id number] [place] [address] 96934- 6964 Apr, [facility] [id number] [place] [address] 30973- 2122 Apr, Encounter for test, result positive Z32.01 [facility] [id number] [place] [address] 66627- 1660 March, [facility] [address] 67531- 0639 March, Bipolar disorder, current episode mixed, moderate F31.62 and Generalized anxiety disorder F41.1 [place] [id number] [place] [address] 97104- 8026 March, Bipolar disorder, current episode mixed, moderate F31.62 and Generalized anxiety disorder F41.1 [facility] [id number] [place] [address] 84307- 6917 March, [facility] [id number] [place] [address] 25814- 7126 March, [facility] [id number] [place] [address] 86611- 1696 Feb, [facility] [id number] [place] [address] 43335- 5268 Feb, [facility] [id number] [place] [address] 03680- 5808 Feb, Bipolar disorder, current episode mixed, moderate F31.62 and Generalized anxiety disorder F41.1 [facility] [id number] [place] [address] 52354- 1326 Jan, Abdominal pain R10.9 [facility] [id number] [place] [address] 17378- 9998 14 Jan, 2016 [facility] [address] [place] [address] 13886- 5130 29 Dec, 2015 Dental examination Z01.20 [facility] [id number] [place] [address] 66553- 2750 22 Dec, 2015 Dental examination Z01.20 and Dental caries K02.9 [facility] [id number] [place] [address] 94409- 2093 15 Dec, 2015 Bipolar disorder, current episode mixed, moderate F31.62 and Generalized anxiety disorder F41.1 [place] [id number] [place] [address] 507315- 9391 15 Dec, 2015 [facility] [id number] [place] [address] 43415- 9576 Nov, Bipolar disorder, current episode mixed, moderate F31.62 ; Generalized anxiety disorder F41.1 and Seizure-like activity R56.9 [place] [address] [place] [address] 00638- 2089 Oct, [facility] [facility] [address] 19254- 0437 Oct, Bipolar disorder, current episode mixed, moderate F31.62 [facility] [id number] [place] [address] 38698- 8384 14 Oct, 2015 Well woman exam Z01.419 [...] Tobacco use Z72.0 and Hot flashes N95.1 [place] [address] [place] [address] 00507- 6169 09 Oct, 2015 Seizure-like activity R56.9 and Irregular periods N92.6 [facility] [facility] [address] 20551- 2837 Oct, Bipolar disorder, current episode mixed, moderate F31.62 ; Generalized anxiety disorder F41.1 and Underweight R63.6 [facility] [address] 48943- 8239 Oct, [facility] [address] 00791- 5689 Oct, Generalized anxiety disorder F41.1 and Unspecified mood [ affective] disorder F39 [facility] [address] 24299 -0968 Oct, Back pain M54.9 and Anxiety F41.9 [place] [address] 24086- 4226 Oct, [facility] [address] 97708 -2390 Sep, Arm pain, left M79.602 [place] [address] 66937- 7756 Sep, [facility] [address] [id number] Sep, Dental examination Z01.20 and Dental caries K02.9 [place] [address] 05451- 0385 Sep, Generalized anxiety disorder F41.1 and Unspecified episodic mood disorder F39 [facility] [address] 06006- 8045 Sep, Bilateral low back pain without sciatica M54.5 and Seizure- like activity R56.9 [facility] [address] 25269- 2787 Aug, [place] [address] [address]- 2338 Aug, [facility] [id number] [place] [address] 48101- 0221 Aug, [facility] [id number] [place] [address] 21251- 0313 Aug, Visual changes H53.9 and Bilateral low back pain without sciatica M54.5 [facility] [id number] [place] [address] 27831- 8186 Jul, [facility] [id number] [place] [address] 92067- 5945 Jun, Bipolar I disorder, most recent episode (or current) mixed, moderate 296.62 ; Generalized anxiety disorder 300.02 and High risk medication use V58.69 [facility] [id number] [place] [address] 57367- 3160 Jun, [facility] [id number] [place] [address] 15304- 9963 May, [facility] [id number] [place] [address] 85011- 3024 May, Bipolar I disorder, most recent episode (or current) mixed, moderate 296.62 and Generalized anxiety disorder 300.02 [facility] [address] [address] May, Dental examination V72.2 [facility] [address] [place] [address] 96387- 7184 March, Bipolar I disorder, most recent episode (or current) mixed, moderate 296.62 and Generalized anxiety disorder 300.02 [facility] [id number] [place] [address] 15468- 5987 March, [facility] [address] [place] [address] 15913- 9321 March, [facility] [id number] [place] [address] 56321- 5917 March, Underweight 783.22 ; Hand pain, right 729.5 and Reflux gastritis 535.40 [facility] [address] [place] [address]- 3536 14 Feb, 2015 [facility] [address] [address]- 1136 13 Feb, 2015 [facility] [id number] [place] [address] 60815- 4312 18 Jan, 2015 [facility] [id number] [address]- 0481 18 Jan, 2015 [facility] [address] [address]- 0223 16 Jan, 2015 [facility] [address] [address]- 9524 16 Jan, 2015 [facility] [address] [address]- 8269 Jan, [facility] [address] [address]- 8894 Jan, [facility] [address] [address]- 9202 05 Jan, 2015 [facility] [address] [address]- 8733 05 Jan, 2015 [facility] [address] [address]- 4648 Jan, [facility] [address] [address]- 8022 Jan, [facility] [address] [address]- 0746 Jan, [facility] [id number] [address]- 5736 Jan, [facility] [address] [address]- 5328 20 Dec, 2014 [facility] [place] [facility] [address] [id number] [place] [address]- 9051 20 Dec, 2014 [facility] [place] [facility] [address] [id number] [place] [address]- 3036 19 Dec, 2014 [facility] [place] [facility] [address] [facility] [id number] [place] [address]- 0384 19 Dec, 2014 [facility] [place] [facility] [address] [facility] [id number] [place] [address]- 1257 18 Dec, 2014 [facility] [place] [facility] [address] [facility] [id number] [place] [address]- 5497 17 Dec, 2014 [facility] [place] [facility] [address] [facility] [id number] [place] [address]- 1562 17 Dec, 2014 [facility] [place] [facility] [id number] [place] [address]- 5651 16 Dec, 2014 [facility] [place] [facility] [address] [facility] [id number] [place] [address]- 3530 16 Dec, 2014 [facility] [place] [facility] [id number] [place] [address]- 6399 05 Dec, 2014 [facility] [place] [facility] [id number] [address]- 8705 05 Dec, 2014 [facility] [place] [facility] [address] [facility] [id number] [place] [address]- 2548 05 Dec, 2014 [facility] [place] [facility] [address] [facility] [id number], [place] [address]- 2540 05 Dec, 2014 [facility] [place] [facility] [address] [facility] [id number] [place] [address]- 1003 04 Dec, 2014 [facility] [place] [facility] [address] [facility] [id number], [place] [address]- 2543 04 Dec, 2014 [facility] [place] [facility] [id number] [address]- 2545 Dec, [facility] [place] [facility] [address] [id number] [place] [address]- 3118 Dec, [facility] [place] [facility] [address] [id number], [place] [address]- 4716 Dec, [facility] [place] [facility] [address] [id number], [place] [address]- 9697 Dec, [facility] [place] [facility] [address] [id number], [place] [address]- 1272 Nov, [facility] [place] [facility] [address] [id number] [place] [address]- 4580 Nov, [facility] [place] [facility] [address] [id number], [place] [address]- 2207 Nov, [facility] [place] [facility] [address] [id number], [place] [address]- 9481 Nov, [facility] [place] [facility] [address] [id number], [place] [address]- 3521 Nov, [facility] [place] [facility] [address] [id number], [place] [address]- 8924 Nov, [facility] [place] [facility] [id number] [id number] Nov, [facility] [place] [facility] [address] [id number], [place] [address]- 2347 Nov, [facility] [place] [facility] [address] [id number], [place] [address]- 0195 Nov, [facility] [place] [facility] [address] [id number] [address] Nov, [facility] [place] [facility] [address] [id number], [place] [address]- 5509 Nov, [facility] [place] [facility] [address] [id number], [place] [address]- 9290 Nov, [facility] [place] [facility] [address] [id number] [place] [address]- 3496 31 Oct, 2014 [facility] [place] [facility] [address] [id number] [place] [address]- 6367 31 Oct, 2014 [facility] [place] [facility] [address] [id number] [place] [address]- 4307 30 Oct, 2014 [facility] [place] [facility] [address] [id number] [place] [address]- 2457 30 Oct, 2014 [facility] [place] [facility] [address] [id number] [place] [address]- 2026 Oct, [facility] [place] [facility] [address] [id number] [place] [address]- 8522 Oct, [facility] [place] [facility] [address] [id number] [place] [address]- [address] Oct, [facility] [place] [facility] [address] [id number] [place] [address] Oct, [facility] [place] [facility] [address] [id number] [place] [address] Oct, [facility] [place] [facility] [address] [id number] [place] [address] Oct, [facility] [place] [facility] [address] [facility] [id number] [place] [address] Oct, [facility] [place] [facility] [address] [id number] [place] [address] Oct, [facility] [place] [facility] [address] [id number] [place] [address] Sep, [facility] [place] [facility] [address] [id number] [place] [address] Sep, [facility] [place] [facility] [address] [id number] [place] [address] Sep, [facility] [place] [facility] [address] [id number] [place] [address] Sep, [facility] [place] [facility] [address] [id number] [place] [address] Sep, [facility] [place] [facility] [address] [id number] [place] [address] Sep, [facility] [place] [facility] [address] [id number] [place] [address] Sep, [facility] [place] [facility] [address] [id number] [place] [address] Sep, [facility] [place] [facility] [address] [id number] [place] [address] Aug, [facility] [place] [facility] [address] [id number] [place] [address] Aug, [facility] [place] [facility] [address] [id number] [place] [address] Aug, [facility] [place] [facility] [address] [id number] [place] [address] Aug, [facility] [place] [facility] [address] [id number] [place] [address] Aug, [facility] [place] [facility] [address] [id number] [place] [address] Aug, [facility] [place] [facility] [address] [id number] [place] [address] Aug, [facility] [place] [facility] [address] [id number], [place] [address] Aug, [facility] [place] [facility] [address] [id number] [place] [address] Aug, [facility] [place] [facility] [address] [id number] [place] [address] Aug, [facility] [place] [facility] [address] [id number] [place] [address] Aug, [facility] [place] [facility] [address] [id number] [place] [address] Aug, [facility] [place] [facility] [address] [id number] [place] [address] Aug, [facility] [place] [facility] [address] [address] [id number] [place] [address] Jul, [facility] [place] [facility] [address] [id number] [place] [address] Jul, [facility] [place] [facility] [address] [id number] [place] [address] Jul, [facility] [place] [facility] [address] [id number] [place] [address] Jul, [facility] [place] [facility] [address] [id number] [place] [address] Jun, [facility] [place] [facility] [address] [id number] [place] [address] Jun, [facility] [place] [facility] [address] [id number] [place] [address] 1159 Jun, [facility] [place] [facility] [address] [id number] [place] [address] Jun, [facility] [place] [facility] [address] [id number] [place] [address] Jun, [facility] [place] [facility] [address] [id number] [place] [address] 65[address] Jun, [facility] [place] [facility] [address] [id number] [place] [address] May, [facility] [place] [facility] [address] [id number] [place] [address] 6785 May, [facility] [place] [facility] [address] [id number] [place] [address] 5525 May, [facility] [place] [facility] [address] [id number] [place] [address] 2496 May, [facility] [place] [facility] [address] [id number] [place] [address] 6[address] Apr, [facility] [address] [id number] [place] [address] 93[address] Apr, [facility] [place] [facility] [address] [id number] [place] [address] March, [facility] [address] [id number] [place] [address] 98[address] March, [facility] [place] [facility] [address] [id number] [place] [address] 3819 March, [facility] [address] [id number] [place] [address] March, [facility] [place] [facility] [address] [id number] [place] [address] March, [facility] [place] [facility] [address] [id number] [place] [address] 4[address] March, [facility] [address] [id number] [place] [address] Feb, [facility] [place] [facility] [address] [id number] [place] [address] 69[address] Feb, [facility] [place] [facility] [address] [id number] [place] [address] 9353 Dec, [facility] [place] [facility] [address] [id number] [place] [address] 6668 Dec, [facility] [place] [facility] [address] [id number] [place] [address] 9440 Nov, [facility] [place] [facility] [address] [id number] [place] [address] 1299 Nov, [facility] [place] [facility] [address] [id number] [place] [address]- 8626 Sep, [facility] [place] [facility] [address] [id number] [place] [address]- [address] 14 Sep, 2013 [facility] [place] [facility] [address] [id number] [place] [address]28 Sep, [facility] [place] [facility] [address] [id number] [place] [address]- 8259 Sep, [facility] [place] [facility] [address] [id number] [place] [address]- 4369 Sep, [facility] [place] [facility] [address] [id number] [place] [address]- 6145 Sep, [facility] [place] [facility] [address] [id number] [place] [address]- 2133 Sep, [facility] [place] [facility] [address] [id number] [place] [address] 4325 Aug, [facility] [place] [facility] [address] [id number] [place] [address] 3165 Aug, [facility] [place] [facility] [address] [id number], [place] [address] Aug, [facility] [place] [facility] [address] [id number] [place] [address] 9162 Aug, [facility] [place] [facility] [address] [id number], [place] [address] Aug, [facility] [place] [facility] [address] [id number], [place] [address] 72[address] Aug, [facility] [place] [facility] [address] [id number], [place] [address]- 7469 19 Jul, 2013 [facility] [place] [facility] [address] [id number] [place] [address]- 7215 19 Jul, 2013 [facility] [place] [facility] [address] [id number], [place] [address]- 6510 16 Jul, 2013 [facility] [place] [facility] [address] [id number], [place] [address]- 0[address] 13 Jul, 2013 [facility] [place] [facility] [address] [id number] [place] [address]- 1126 Jun, [facility] [address] [id number] [place] [address] 5311 Jun, [facility] [place] [facility] [address] [id number] [place] [address]- 3566 Jun, [facility] [place] [facility] [address] [id number] [place] [address]- 2585 Jun, [facility] [place] [facility] [address] [id number] [place] [address]- 0401 Jun, [facility] [place] [facility] [address] [id number] [place] [address]- 6144 Jun, [facility] [place] [facility] [address] [id number] [place] [address]- 0172 Jun, [facility] [place] [facility] [address] [id number] [place] [address]- 3041 May, [facility] [place] [facility] [address] [id number] [place] [address] 3944 May, [facility] [place] [facility] [address] [id number] [place] [address]- 7391 May, [facility] [place] [facility] [address] [id number] [place] [address]- 4838 May, [facility] [place] [facility] [address] [id number] [place] [address]- 1523 May, [facility] [place] [facility] [address] [id number] [place] [address]- 1809 May, [facility] [place] [facility] [address] [id number] [place] [address] 4089 May, [facility] [place] [facility] [address] [id number] [place] [address] 8995 Apr, [facility] [place] [facility] [address] [id number] [place] [address]- 4080 Apr, [facility] [place] [facility] [address] [id number] [place] [address]- 6210 27 Apr, 2013 [facility] [place] [facility] [address] [id number] [place] [address]- 0496 26 Apr, 2013 [facility] [place] [facility] [address] [id number] [place] [address]- 3776 20 Apr, 2013 [facility] [place] [facility] [address] [id number] [place] [address]- 5658 18 Apr, 2013 [facility] [place] [facility] [address] [id number] [place] [address]- 9888 18 Apr, 2013 [facility] [place] [facility] [address] [id number] [place] [address]- 4182 18 Apr, 2013 [facility] [place] [facility] [address] [id number] [place] [address]- 2501 17 Apr, 2013 [facility] [place] [facility] [address] [id number] [place] [address]- 4501 14 Apr, 2013 [facility] [place] [facility] [address] [id number] [place] [address]- 4450 14 Apr, 2013 [facility] [place] [facility] [address] [id number] [place] [address]- 3851 11 Apr, 2013 [facility] [place] [facility] [address] [id number] [place] [address]- 6923 10 Apr, 2013 [facility] [place] [facility] [address] [id number] [place] [address]- 5275 09 Apr, 2013 [facility] [place] [facility] [address] [id number] [place] [address]- 2433 07 Apr, 2013 [facility] [place] [facility] [address] [id number] [place] [address]- 7068 06 Apr, 2013 [facility] [place] [facility] [address] [id number] [place] [address]- 4180 06 Apr, 2013 [facility] [place] [facility] [address] [id number] [place] [address]- 9346 Apr, [facility] [address] [id number] [place] [address]- 8495 Apr, [facility] [address] [id number] [place] [address]- 3558 March, [facility] [address] [id number] [place] [address]- 3477 March, [facility] [address] [id number] [place] [address]- 5013 March, [facility] [address] [id number] [place] [address]- 6266 March, [facility] [address] [id number] [place] [address]- 3983 March, [facility] [address] [id number] [place] [address]- 7027 March, [facility] [address] [id number] [place] [address]- 0162 March, [facility] [address] [id number] [place] [address]- 8896 Feb, [facility] [address] [id number] [place] [address]- 2387 Feb, [facility] [address] [id number] [place] [address]- 4553 Jan, [facility] [place] [facility] [address] [id number] [place] [address]- 9819 18 Jan, 2013 [facility] [place] [facility] [address] [id number] [place] [address]- 7343 15 Jan, 2013 [facility] [place] [facility] [address] [id number] [place] [address]- 5868 14 Jan, 2013 [facility] [place] [facility] [address] [id number] [place] [address]- 6895 13 Jan, 2013 [facility] [place] [facility] [address] [id number] [place] [address]- 5250 12 Jan, 2013 [facility] [address] [id number] [place] [address]- 5590 11 Jan, 2013 [facility] [address] [id number] [place] [address] 2546 09 Jan, 2013 [facility] [address] [id number] [place] [address]- 8563 08 Jan, 2013 [facility] [address] [id number] [place] [address]- 0580 07 Jan, 2013 [facility] [address] [id number] [place] [address]- 6063 06 Jan, 2013 [facility] [address] [id number] [place] [address]- 1967 17 Nov, 2012 [facility] [address] [id number] [place] [address]- 0221 Oct, [facility] [address] [id number] [place] [address]- 6445 Oct, [facility] [address] [id number] [place] [address]- 8756 Oct, [facility] [address] [id number] [place] [address]- 1545 Oct, [facility] [address] [id number] [place] [address]- 2609 30 Sep, 2012 [facility] [address] [id number] [place] [address]- 1634 30 Sep, 2012 [facility] [place] [facility] [address] [id number] [place] [address]- 6978 Sep, [facility] [place] [facility] [address] [id number] [place] [address]- 2546 16 Sep, 2012 [facility] [address] [id number] [place] [address]- 3511 Sep, [facility] [place] [facility] [address] [id number] [place] [address]- 3280 16 Sep, 2012 [facility] [place] [facility] [address] [id number] [place] [address]- 5651 Sep, [facility] [place] [facility] [address] [id number] [place] [address]- 3962 Sep, [facility] [place] [facility] [address] [id number] [place] [address]- 8220 Sep, [facility] [place] [facility] [address] [id number] [place] [address]- 4798 Sep, [facility] [place] [facility] [address] [id number] [place] [address]- 6707 Sep, [facility] [place] [facility] [address] [facility] [id number] [place] [address]- 8117 Aug, [facility] [place] [facility] [address] [id number] [place] [address]- 2277 Aug, [facility] [place] [facility] [address] [id number] [place] [address]- 5797 Aug, [facility] [place] [facility] [address] [facility] [id number], [place] [address]- 0161 28 Jul, 2012 [facility] [place] [facility] [address] [facility] [id number], [place] [address]- 6806 25 Jul, 2012 [facility] [place] [facility] [address] [id number], [place] [address]- 0079 19 Jul, 2012 [facility] [place] [facility] [address] [id number] [place] [address]- 2828 17 Jul, 2012 [facility] [place] [facility] [address] [id number], [place] [address]- 5450 20 Jun, 2012 [facility] [place] [facility] [address] [facility] [id number], [place] [address]- 4303 16 Jun, 2012 [facility] [place] [facility] [address] [id number], [place] [address]- 7129 15 Jun, 2012 [facility] [address] [id number] [place] [address]- 3773 15 Jun, 2012 [facility] [place] [facility] [address] [id number] [place] [address]- 9796 13 Jun, 2012 [facility] [place] [facility] [address] [id number] [place] [address]- 7683 March, [facility] [place] [facility] [address] [id number] [place] [address]- 5618 04 Feb, 2012 [facility] [place] [facility] [address] [id number] [place] [address]- 4214 28 Jan, 2012 [facility] [place] [facility] [address] [id number] [place] [address]- 0898 27 Jan, 2012 [facility] [address] [id number] [place] [address]- 8626 Jan, [facility] [place] [facility] [address] [id number] [place] [address]- 8724 14 Jan, 2012 [facility] [place] [facility] [address] [id number] [place] [address]- 0566 14 Jan, 2012 [facility] [place] [facility] [address] [facility] [id number] [place] [address]- 7437 14 Jan, 2012 [facility] [place] [facility] [address] [id number] [place] [address]- 1543 28 Dec, 2011 [facility] [place] [facility] [address] [id number] [place] [address]- 9404 27 Dec, 2011 [facility] [place] [facility] [address] [id number] [place] [address]- 6514 23 Dec, 2011 [facility] [place] [facility] [address] [id number] [place] [address]- 0047 21 Dec, 2011 [facility] [place] [facility] [address] [id number] [place] [address]- 2867 20 Dec, 2011 [facility] [id number], [place] [address] Dec, [facility] [id number] [address]16 Dec, [facility] [id number] [address]856 Dec, [facility] [id number], [place] [address]- 6148 Nov, [facility] [id number] [address] Oct, [facility] [id number], [place] [address]- 7181 Sep, [facility] [id number], [place] [address]- 1534 Sep, [facility] [id number], [place] [address]- 7272 Sep, [facility] [id number], [place] [address]- 7479 Sep, [facility] [id number], [place] [address]- 2815 Sep, [facility] [address] [id number], [place] [address]- 9083 Sep, [facility] [address] [id number], [place] [address]- 0368 Jan, [facility] [address] [id number], [place] [address]- 7393 Apr, IMMUNIZATIONS No Known Immunizations SOCIAL HISTORY Never Assessed REASON FOR VISIT klonopin 12/27/2017 PLAN OF CARE VITAL SIGNS MEDICATIONS Medication [...]
--- OUTSIDE RECORDS SUMMARY | 2018-08-05 20:43 | XMS REPORT ---
Author Author TOMASZ MARGARITA [facility] Address [address] [place] [address] Care Team Providers Care Caddy Packer Name Role Phone TOMASZ, MARGARITA Unavailable PROBLEMS Type Condition ICD9-CM Code KPT59-FV Code Onset Dates Condition Status SNOMED Code Problem Generalized anxiety disorder F41.1 Active 22634877 Problem Acute non intractable tension-type headache G44.209 Active 698403067 Problem Acute right-sided low back pain with right-sided sciatica M54.41 Active 430023197 Problem Post traumatic stress disorder F43.10 Active 49536000 Problem Bipolar disorder, current episode mixed, moderate F31.62 Active 850984470 Problem Endometriosis N80.9 Active 558466845 Problem Borderline personality disorder F60.3 Active 56649178 ALLERGIES Substance Reaction Event Type Date Status Thioridazine HCl tachycardia Drug Allergy Nov, Active Pristiq Unknown Drug Allergy Nov, Active Penicillin V Potassium rash Drug Allergy Nov, Active Diclofenac Sodium nausea Drug Allergy Nov, Active Depakote fatigue Drug Allergy Nov, Active ENCOUNTERS Encounter Location Date Diagnosis [facility] [id number] [place] [address] 05846- 6101 May, [facility] [id number] [place] [address] [id number] Apr, Dental examination Z01.20 [facility] [id number] [place] [address] 01907 -7728 Apr, [facility] [id number] [place] [address] 55284- 8225 Apr, Dental examination Z01.20 [facility] [id number] [place] [address] 45317 -0701 Apr, Tooth pain K08.89 [place] [address], [place] [address] 89[address] Apr, Bipolar disorder, current episode mixed, moderate F31.62 ; Post traumatic stress disorder F43.10 and Borderline personality disorder F60.3 [facility] [id number] [place] [address] 95640 -4696 March, Abdominal pain R10.9 ; UTI symptoms R39.9 and Other microscopic hematuria R31.29 [facility] [id number] [place] [address] 94945- 7626 March, [facility] [facility] [id number] [place] [address] 47316- 0234 March, Bipolar disorder, current episode mixed, moderate F31.62 ; Post traumatic stress disorder F43.10 and Borderline personality disorder F60.3 [facility] [id number] [place] [address] 42412- 1664 Feb, Encounter for immunization Z23 [facility] [id number] [place] [address] 26812- 5856 Feb, Bipolar disorder, current episode mixed, moderate F31.62 ; Post traumatic stress disorder F43.10 and Borderline personality disorder F60.3 [place] [address] [place] [address] 71302- 8570 Feb, Bipolar disorder, current episode mixed, moderate F31.62 ; Post traumatic stress disorder F43.10 ; Borderline personality disorder F60.3 and 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 [place] [address] [place] [address] 13950- 8927 Jan, Encounter for immunization Z23 [facility] [facility] [id number] [place] [address] 60644- 7191 Jan, [facility] [id number] [place] [address] 05184- 0923 Jan, Bipolar disorder, current episode mixed, moderate F31.62 [facility] [id number] [place] [address] 31299 -5350 Jan, Lumbar back pain M54.5 [place] [address] 87960- 7849 28 Dec, 2017 Low back pain M54.5 [place] [address] 26198- 4295 Dec, Bipolar disorder, current episode mixed, moderate F31.62 [place] [address] 32777- 6399 Dec, Generalized anxiety disorder F41.1 and Bipolar disorder, current episode mixed, moderate F31.62 [facility] [address] 97842 -4305 Nov, Acute non intractable tension-type headache G44.209 [place] [address] 72508- 4785 Nov, Bipolar disorder, current episode mixed, moderate F31.62 ; Post traumatic stress disorder F43.10 and Borderline personality disorder F60.3 [place] [address] 74888- 6491 Nov, Bipolar disorder, current episode mixed, moderate F31.62 [facility] [place] [id number] [place] [address] 63155 -1895 Nov, Abdominal pain R10.9 ; History of PCOS Z87.42 ; History of endometriosis Z87.42 and Pelvic pain R10.2 [place] [id number] [place] [address] 38745- 4110 Nov, [facility] [address] 62029 -2765 Oct, History of PCOS Z87.42 ; History of endometriosis Z87.42 and Pain R52 [place] [address] 33996- 3991 Oct, Bipolar disorder, current episode mixed, moderate F31.62 ; Post traumatic stress disorder F43.10 and Borderline personality disorder F60.3 [facility] [id number] [place] [address] 18208- 8118 Oct, Bipolar disorder, current episode mixed, moderate F31.62 [place] [id number] [place] [address] 88350- 0335 Sep, Bipolar disorder, current episode mixed, moderate F31.62 ; Post traumatic stress disorder F43.10 ; Borderline personality disorder F60.3 and 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 [place] [id number] [place] [address] 590622- 5698 17 Sep, 2017 Bipolar disorder, current episode mixed, moderate F31.62 [facility] [id number] [place] [address] 90286 -5719 Sep, Endometriosis N80.9 and Acute right-sided low back pain with right-sided sciatica M54.41 [facility] [id number] [place] [address] 03303- 6569 Aug, [facility] [address] [id number]- 9272 Aug, Bipolar disorder, current episode mixed, moderate F31.62 ; Post traumatic stress disorder F43.10 and Borderline personality disorder F60.3 [place] [id number] [place] [address] 02734- 4366 11 Aug, 2017 Bipolar disorder, current episode mixed, moderate F31.62 ; Post traumatic stress disorder F43.10 and Borderline personality disorder F60.3 [facility] [id number] [place] [address] 54895- 7671 13 Jul, 2017 Bipolar disorder, current episode mixed, moderate F31.62 ; Post traumatic stress disorder F43.10 and Borderline personality disorder F60.3 [facility] [id number] [place] [address] 68413 -6648 11 Jul, 2017 Pharyngitis, unspecified etiology J02.9 and Streptococcal pharyngitis J02.0 [facility] [address], [place] [address]- 6404 Jun, Bipolar disorder, current episode mixed, moderate F31.62 ; Post traumatic stress disorder F43.10 and Borderline personality disorder F60.3 [place] [id number] [place] [address] 48311- 3230 May, [place] [id number] [place] [address] 74874- 0366 May, [place] [id number] [place] [address] 13993- 1803 May, Bipolar disorder, current episode mixed, moderate F31.62 and Generalized anxiety disorder F41.1 [place] [id number] [place] [address] 23185- 8935 March, Bipolar disorder, current episode mixed, moderate F31.62 and Generalized anxiety disorder F41.1 [place] [id number] [place] [address] 75378- 2937 March, Pelvic pain R10.2 [place] [id number] [place] [address] 74465- 2858 March, [place] [address] [place] [address] 70399- 7635 Feb, Bipolar disorder, current episode mixed, moderate F31.62 and Generalized anxiety disorder F41.1 [place] [address], [place] [address]- 4934 Jan, [facility] [facility] [id number] [place] [address] 45605- 2821 Jan, Bipolar disorder, current episode mixed, moderate F31.62 [place] [address], [place] [address]- 1823 Jan, Bipolar disorder, current episode mixed, moderate F31.62 [facility] [facility] [id number] [place] [address] 79397- 4127 24 Jan, 2017 Bilateral low back pain without sciatica M54.5 [facility] [id number] [place] [address] [id number] Jan, Dental caries K02.9 and Dental examination Z01.20 [facility] [id number] [place] [address] [phone] Jan, 2017 Encounter for dental examination and cleaning without abnormal findings Z01.20 [facility] [id number] [place] [address] 49929- 7674 06 Jan, 2017 Bipolar disorder, current episode mixed, moderate F31.62 and Generalized anxiety disorder F41.1 [facility] [id number] [place] [address] 82434- 5409 24 Dec, 2016 [facility] [id number] [place] [address] 38759- 8426 06 Dec, 2016 Bipolar disorder, current episode mixed, moderate F31.62 and Generalized anxiety disorder F41.1 [facility] [id number] [place] [address] 96469- 2595 03 Dec, 2016 Other fatigue R53.83 and Orthostatic hypotension I95.1 [facility] [address] [place] [address] [id number] Nov, Dental examination Z01.20 [facility] [address] [place] [address] 46610 -9765 02 Nov, 2016 Bronchitis J40 [facility] [address] [place] [address] 93927- 0429 14 Oct, 2016 Generalized anxiety disorder F41.1 [facility] [id number] [place] [address] 94797- 6858 Sep, Bipolar disorder, current episode mixed, moderate F31.62 and Generalized anxiety disorder F41.1 [facility] [address] [place] [address] 69292- 2231 02 Sep, 2016 Bipolar disorder, current episode mixed, moderate F31.62 and Generalized anxiety disorder F41.1 [facility] [address], [place] [address] -1476 Jul, Upper respiratory tract infection, unspecified type J06.9 [facility] [address] [place] [address] 21140- 8009 Jun, Bipolar disorder, current episode mixed, moderate F31.62 and Generalized anxiety disorder F41.1 [facility] [id number] [place] [address] 92421- 4790 Apr, [facility] [id number] [place] [address] 41458- 1866 Apr, Encounter for test, result positive Z32.01 [facility] [id number] [place] [address] 69361- 8129 March, [facility] [id number] [place] [address] 74215- 7149 March, Bipolar disorder, current episode mixed, moderate F31.62 and Generalized anxiety disorder F41.1 [facility] [id number] [place] [address] 90661- 6996 March, Bipolar disorder, current episode mixed, moderate F31.62 and Generalized anxiety disorder F41.1 [facility] [address], [place] [address]- 1882 March, [facility] [id number] [place] [address] 66344- 9108 March, [facility] [address] [place] [address] 84424- 7938 Feb, [facility] [id number] [place] [address] 76180- 5015 Feb, [facility] [address] [place] [address] 41354- 9284 Feb, Bipolar disorder, current episode mixed, moderate F31.62 and Generalized anxiety disorder F41.1 [place] [address] [place] [address] 57431- 2357 22 Jan, 2016 Abdominal pain R10.9 [place] [id number] [place] [address] 97674- 4493 14 Jan, 2016 [place] [id number] [place] [address] 39793- 8992 29 Dec, 2015 Dental examination Z01.20 [place] [id number] [place] [address] 78476- 2067 22 Dec, 2015 Dental examination Z01.20 and Dental caries K02.9 [place] [facility] [id number] [place] [address] 93650- 4537 15 Dec, 2015 Bipolar disorder, current episode mixed, moderate F31.62 and Generalized anxiety disorder F41.1 [place] [id number] [place] [address] 26329- 2299 15 Dec, 2015 [place] [id number] [place] [address] 41226- 3823 Nov, Bipolar disorder, current episode mixed, moderate F31.62 ; Generalized anxiety disorder F41.1 and Seizure-like activity R56.9 [place] [address] [place] [address] 28213- 6658 Oct, [place] [id number] [place] [address] 72607- 3076 Oct, Bipolar disorder, current episode mixed, moderate F31.62 [place] [id number] [place] [address] 78797- 9581 14 Oct, 2015 Well woman exam Z01.419 [...] Tobacco use Z72.0 and Hot flashes N95.1 [place] [address] 24484- 8958 09 Oct, 2015 Seizure-like activity R56.9 and Irregular periods N92.6 [place] [address] 25277- 8864 Oct, Bipolar disorder, current episode mixed, moderate F31.62 ; Generalized anxiety disorder F41.1 and Underweight R63.6 [place] [address] 79452- 7486 Oct, [place] [address] 87981- 6415 Oct, Generalized anxiety disorder F41.1 and Unspecified mood [ affective] disorder F39 [facility] [address] 57963 -9854 Oct, Back pain M54.9 and Anxiety F41.9 [place] [address] 87936- 7142 Oct, [facility] [address] 09866 -6337 Sep, Arm pain, left M79.602 [place] [address] 02868- 1070 Sep, [facility] [address] [id number] Sep, Dental examination Z01.20 and Dental caries K02.9 [place] [address] 56086- 3541 05 Sep, 2015 Generalized anxiety disorder F41.1 and Unspecified episodic mood disorder F39 [place] [address] 69081- 5154 Sep, Bilateral low back pain without sciatica M54.5 and Seizure- like activity R56.9 [facility] [address] [place] [address] 47423- 1516 Aug, [facility] [id number] [place] [address] 90457- 2298 Aug, [facility] [id number] [place] [address] 68570- 7062 Aug, [facility] [id number] [place] [address] 43779- 8438 Aug, Visual changes H53.9 and Bilateral low back pain without sciatica M54.5 [facility] [id number] [place] [address] 70465- 3620 Jul, [facility] [id number] [place] [address] 86029- 6838 Jun, Bipolar I disorder, most recent episode (or current) mixed, moderate 296.62 ; Generalized anxiety disorder 300.02 and High risk medication use V58.69 [facility] [id number] [place] [address] 17621- 2432 Jun, [facility] [id number] [place] [address] 69382- 5654 May, [facility] [id number] [place] [address] 03011- 7090 May, Bipolar I disorder, most recent episode (or current) mixed, moderate 296.62 and Generalized anxiety disorder 300.02 [facility] [address] [place] [address] [id number] May, Dental examination V72.2 [facility] [id number] [place] [address] 50491- 0334 March, Bipolar I disorder, most recent episode (or current) mixed, moderate 296.62 and Generalized anxiety disorder 300.02 [facility] [id number] [place] [address] 41130- 6674 March, [facility] [address] [address]- 0359 March, [facility] [id number] [place] [address] 98453- 6456 March, Underweight 783.22 ; Hand pain, right 729.5 and Reflux gastritis 535.40 [facility] [id number] [place] [address], [place] [address]- 1538 Feb, [facility] [address] [facility] [id number] [place] [address], [place] [address]- 1368 Feb, [facility] [id number] [place] [address], [place] [address]- 5503 18 Jan, 2015 [facility] [id number] [place] [address], [place] [address]- 5877 18 Jan, 2015 [facility] [id number] [place] [address] 39196- 2482 16 Jan, 2015 [facility] [address] [place] [address]- 9816 16 Jan, 2015 [facility] [id number] [address]- 2864 Jan, [facility] [address], [place] [address]- 4183 Jan, [facility] [address], [place] [address]- 5261 05 Jan, 2015 [facility] [id number], [place] [address]- 0018 05 Jan, 2015 [facility] [id number] [address]- 0469 Jan, [facility] [address] [facility] [id number], [place] [address]- 3956 04 Jan, 2015 [facility] [address], [place] [address]- 5799 Jan, 2014 [facility] [place] [facility] [address] [facility] [id number] [place] [address]- 4388 Jan, 2014 [facility] [place] [facility] [address] [facility] [id number] [place] [address]- 1832 20 Dec, 2014 [facility] [place] [facility] [address] [facility] [id number] [place] [address]- 1400 20 Dec, 2014 [facility] [place] [facility] [address] [facility] [id number] [place] [address]- 2495 Dec, 2014 [facility] [place] [facility] [address] [facility] [id number] [place] [address]- 9584 19 Dec, 2014 [facility] [place] [facility] [address] [facility] [id number] [place] [address]- 9364 18 Dec, 2014 [facility] [place] [facility] [id number] [place] [address]- 4624 17 Dec, 2014 [facility] [place] [facility] [address] [facility] [id number] [place] [address]- 2694 17 Dec, 2014 [facility] [place] [facility] [address] [facility] [id number] [place] [address]- 3191 16 Dec, 2014 [facility] [place] [facility] [address] [facility] [id number] [place] [address]- 8226 16 Dec, 2014 [facility] [place] [facility] [address] [facility] [id number] [place] [address]- 5002 05 Dec, 2014 [facility] [place] [facility] [address] [facility] [id number] [place] [address]- 2153 05 Dec, 2014 [facility] [place] [facility] [address] [facility] [id number] [place] [address]- 5239 05 Dec, 2014 [facility] [place] [facility] [address] [facility] [id number], [place] [address]- 9895 05 Dec, 2014 [facility] [place] [facility] [address] [id number] [place] [address]- 6577 Dec, 2014 [facility] [place] [facility] [address] [id number] [place] [address]- 5799 Dec, [facility] [place] [facility] [address] [id number] [place] [address]- 5896 Dec, [facility] [place] [facility] [address] [id number] [place] [address]- 5060 Dec, [facility] [place] [facility] [address] [id number] [place] [address]- 4776 Dec, [facility] [place] [facility] [address] [id number] [place] [address]- 3738 Dec, [facility] [place] [facility] [address] [id number] [place] [address]- 1794 Nov, [facility] [place] [facility] [address] [id number] [place] [address]- 2465 Nov, [facility] [place] [facility] [address] [id number], [place] [address]- 9804 Nov, [facility] [place] [facility] [address] [id number], [place] [address]- 2496 Nov, [facility] [place] [facility] [address] [id number], [place] [address]- 7984 Nov, [facility] [place] [facility] [address] [id number], [place] [address]- 6436 Nov, [facility] [place] [facility] [address] [id number] [id number] Nov, [facility] [place] [facility] [address] [id number] [place] [address]- 1541 Nov, [facility] [place] [facility] [address] [id number], [place] [address]- 1336 Nov, [facility] [place] [facility] [address] [id number] [place] [id number] Nov, [facility] [place] [facility] [address] [id number] [place] [address]- 2956 Nov, [facility] [place] [facility] [address] [id number] [place] 5232 Nov, [facility] [place] [facility] [address] [id number] [place] [address] Oct, [facility] [place] [facility] [address] [id number] [place] Oct, [facility] [place] [facility] [address] [id number] [place] [address] Oct, [facility] [place] [facility] [address] [id number] [place] [address] Oct, [facility] [place] [facility] [address] [id number] [place] [address] Oct, [facility] [place] [facility] [address] [id number] [place] [address] Oct, [facility] [place] [facility] [address] [id number] [place] [address] Oct, [facility] [place] [facility] [address] [id number] [place] [address] Oct, [facility] [place] [facility] [address] [id number] [place] [address] Oct, [facility] [place] [facility] [address] [id number] [place] [address] Oct, [facility] [place] [facility] [address] [id number] [place] [address] Oct, [facility] [place] [facility] [address] [id number] [place] [address] Oct, [facility] [place] [facility] [address] [id number] [place] [address] Sep, [facility] [place] [facility] [address] [id number] [place] [address] Sep, [facility] [place] [facility] [address] [id number] [place] [address] Sep, [facility] [place] [facility] [address] [id number] [place] Sep, [facility] [place] [facility] [address] [id number] [place] [address] Sep, [facility] [place] [facility] [address] [id number] [place] [address] Sep, [facility] [place] [facility] [address] [id number] [place] [address] Sep, [facility] [place] [facility] [address] [id number] [place] [address] Sep, [facility] [place] [facility] [address] [id number] [place] [address] Aug, [facility] [place] [facility] [address] [id number] [place] [address] Aug, [facility] [place] [facility] [address] [id number] [place] [address] Aug, [facility] [place] [facility] [address] [id number] [place] [address] Aug, [facility] [place] [facility] [address] [id number] [place] [address] Aug, [facility] [place] [facility] [address] [id number] [place] [address] 3589 Aug, [facility] [place] [facility] [address] [id number] [place] [address]85 Aug, [facility] [place] [facility] [address] [id number] [place] [address] Aug, [facility] [place] [facility] [address] [id number] [place] [address] Aug, [facility] [place] [facility] [address] [id number] [place] [address] 9163 Aug, [facility] [place] [facility] [address] [id number] [place] [address]11 Aug, [facility] [place] [facility] [address] [id number] [place] [address] 1416 Aug, [facility] [place] [facility] [address] [id number] [place] [address] 4[address] Aug, [facility] [place] [facility] [address] [id number] [place] [address] 6544 Jul, [facility] [place] [facility] [address] [id number] [place] [address] 6041 Jul, [facility] [place] [facility] [address] [id number] [place] [address] 1116 Jul, [facility] [place] [facility] [address] [id number] [place] [address] 9310 Jul, [facility] [place] [facility] [address] [id number] [place] [address] 4331 Jun, [facility] [place] [facility] [address] [id number] [place] [address] 3338 Jun, [facility] [place] [facility] [address] [id number] [place] [address] 3317 Jun, [facility] [place] [facility] [address] [id number] [place] [address]- 7870 Jun, [facility] [place] [facility] [address] [id number], [place] [address] Jun, [facility] [place] [facility] [address] [id number] [place] [address]- 1742 Jun, [facility] [place] [facility] [address] [id number] [place] [address]- 3509 May, [facility] [place] [facility] [address] [id number] [place] [address]- 2697 May, [facility] [place] [facility] [address] [id number] [place] [address]- 0352 May, [facility] [place] [facility] [address] [id number] [place] [address]- 5208 May, [facility] [place] [facility] [address] [id number] [place] [address]- 6661 Apr, [facility] [place] [facility] [address] [id number] [place] [address]- 2842 Apr, [facility] [place] [facility] [address] [id number] [place] [address]- 9060 March, [facility] [place] [facility] [address] [id number] [place] [address]- 5652 March, [facility] [place] [facility] [address] [id number] [place] [address]- 6577 March, [facility] [place] [facility] [address] [id number] [place] [address]- 1793 March, [facility] [place] [facility] [address] [id number] [place] [address] 3554 March, [facility] [place] [facility] [address] [id number] [place] [address]- 0079 March, [facility] [place] [facility] [address] [id number] [place] [address] 3963 Feb, [facility] [place] [facility] [address] [id number] [place] [address]- 3919 Feb, [facility] [place] [facility] [address] [id number] [place] [address]- 2929 Dec, [facility] [place] [facility] [address] [id number] [place] [address] Dec, [facility] [place] [facility] [address] [id number] [place] [address] 8192 Nov, [facility] [place] [facility] [address] [id number] [place] [address] 8203 Nov, [facility] [place] [facility] [address] [id number] [place] [address]- 2276 Sep, [facility] [place] [facility] [address] [id number] [place] [address]- 4775 Sep, [facility] [place] [facility] [address] [id number] [place] [address]- 0936 Sep, [facility] [place] [facility] [address] [id number] [place] [address]- 6864 Sep, [facility] [place] [facility] [address] [id number] [place] [address]- 5818 Sep, [facility] [place] [facility] [address] [id number] [place] [address]- 0586 Sep, [facility] [place] [facility] [address] [id number] [place] [address]- 4828 Sep, [facility] [place] [facility] [address] [id number], [place] [address] 97[address] Aug, [facility] [place] [facility] [address] [id number] [place] [address] 8191 Aug, [facility] [place] [facility] [address] [id number], [place] [address] 18[address] Aug, [facility] [place] [facility] [address] [id number], [place] [address] Aug, [facility] [place] [facility] [address] [id number], [place] [address]- 2464 Aug, [facility] [place] [facility] [address] [id number], [place] [address] 1405 Aug, [facility] [place] [facility] [address] [id number], [place] [address] 3469 Jul, [facility] [place] [facility] [address] [id number], [place] [address] 43[address] Jul, [facility] [place] [facility] [address] [id number], [place] [address]- 6747 16 Jul, 2013 [facility] [address] [id number] [place] [address] 8121 Jul, [facility] [place] [facility] [address] [id number] [place] [address]- 6081 Jun, [facility] [place] [facility] [address] [id number] [place] [address]- 5608 Jun, [facility] [place] [facility] [address] [id number] [place] [address]- 6055 Jun, [facility] [place] [facility] [address] [id number] [place] [address]- 6963 Jun, [facility] [place] [facility] [address] [id number] [place] [address]- 3575 Jun, [facility] [place] [facility] [address] [id number] [place] [address]- 5745 Jun, [facility] [place] [facility] [address] [id number] [place] [address]- 1625 Jun, [facility] [place] [facility] [address] [id number] [place] [address]- 7902 May, [facility] [place] [facility] [address] [id number] [place] [address]- 2967 May, [facility] [place] [facility] [address] [id number] [place] [address]- 2651 May, [facility] [place] [facility] [address] [id number] [place] [address]- 4265 May, [facility] [place] [facility] [address] [id number] [place] [address]- 5102 May, [facility] [place] [facility] [address] [id number] [place] [address]- 4505 May, [facility] [place] [facility] [address] [id number] [place] [address]- 6165 May, [facility] [place] [facility] [address] [id number] [place] [address]- 3277 28 Apr, 2013 [facility] [place] [facility] [address] [id number] [place] [address]- 2230 27 Apr, 2013 [facility] [place] [facility] [address] [id number] [place] [address]- 7440 27 Apr, 2013 [facility] [place] [facility] [address] [id number] [place] [address]- 5854 26 Apr, 2013 [facility] [place] [facility] [address] [id number] [place] [address]- 7749 20 Apr, 2013 [facility] [place] [facility] [address] [id number] [place] [address]- 7317 18 Apr, 2013 [facility] [place] [facility] [address] [id number] [place] [address]- 9047 18 Apr, 2013 [facility] [place] [facility] [address] [id number] [place] [address]- 3228 18 Apr, 2013 [facility] [place] [facility] [address] [id number] [place] [address]- 3557 17 Apr, 2013 [facility] [place] [facility] [address] [id number] [place] [address]- 3243 14 Apr, 2013 [facility] [place] [facility] [address] [id number] [place] [address]- 2990 14 Apr, 2013 [facility] [place] [facility] [address] [id number] [place] [address]- 1540 11 Apr, 2013 [facility] [place] [facility] [address] [id number] [place] [address]- 3566 10 Apr, 2013 [facility] [place] [facility] [address] [id number] [place] [address]- 9302 09 Apr, 2013 [facility] [place] [facility] [address] [id number] [place] [address]- 7475 07 Apr, 2013 [facility] [place] [facility] [address] [id number] [place] [address]- 6611 Apr, [facility] [address] [id number] [place] [address]- 2373 Apr, [facility] [place] [facility] [address] [id number] [place] [address]- 7895 Apr, [facility] [place] [facility] [address] [id number] [place] [address]- 3306 Apr, [facility] [place] [facility] [address] [id number] [place] [address]- 6732 March, [facility] [address] [id number] [place] [address]- 5407 March, [facility] [address] [id number] [place] [address]- 6246 March, [facility] [address] [id number] [place] [address]- 1794 March, [facility] [place] [facility] [address] [id number] [place] [address]- 1500 March, [facility] [place] [facility] [address] [id number] [place] [address]- 2274 March, [facility] [place] [facility] [address] [id number] [place] [address]- 5136 March, [facility] [place] [facility] [address] [id number] [place] [address]- 3067 Feb, [facility] [place] [facility] [address] [id number], [place] [address]- 6359 Feb, [facility] [place] [facility] [address] [id number] [place] [address]- 6056 Jan, [facility] [place] [facility] [address] [id number] [place] [address]- 3406 18 Jan, 2013 [facility] [place] [facility] [address] [id number] [place] [address]- 8887 15 Jan, 2013 [facility] [place] [facility] [address] [id number] [place] [address]- 3443 14 Jan, 2013 [facility] [address] [id number] [place] [address]- 7334 13 Jan, 2013 [facility] [place] [facility] [address] [id number] [place] [address]- 5503 12 Jan, 2013 [facility] [address] [id number] [place] [address]- 2647 11 Jan, 2013 [facility] [place] [facility] [address] [id number] [place] [address]- 3613 09 Jan, 2013 [facility] [address] [id number] [place] [address]- 7837 08 Jan, 2013 [facility] [place] [facility] [address] [id number] [place] [address]- 7842 07 Jan, 2013 [facility] [address] [id number] [place] [address]- 1138 06 Jan, 2013 [facility] [place] [facility] [address] [id number] [place] [address]- 5535 17 Nov, 2012 [facility] [address] [id number] [place] [address]- 6385 Oct, [facility] [address] [id number] [place] [address]- 1665 Oct, [facility] [place] [facility] [address] [id number] [place] [address]- 5205 Oct, [facility] [place] [facility] [address] [id number] [place] [address]- 8691 Oct, [facility] [place] [facility] [address] [id number] [place] [address]- 9863 30 Sep, 2012 [facility] [place] [facility] [address] [id number] [place] [address]- 0268 30 Sep, 2012 [facility] [place] [facility] [address] [id number] [place] [address]- 8424 Sep, [facility] [place] [facility] [address] [id number] [place] [address]- 6030 Sep, [facility] [place] [facility] [address] [id number] [place] [address]- 5032 Sep, [facility] [place] [facility] [address] [id number] [place] [address]- 1531 Sep, [facility] [place] [facility] [address] [id number] [place] [address]- 7763 Sep, [facility] [place] [facility] [address] [id number] [place] [address]- 6677 Sep, [facility] [place] [facility] [address] [id number] [place] [address]- 8394 Sep, [facility] [place] [facility] [address] [id number] [place] [address]- 5183 Sep, [facility] [place] [facility] [address] [id number] [place] [address]- 9232 Sep, [facility] [place] [facility] [address] [id number] [place] [address]- 7803 Aug, [facility] [place] [facility] [address] [id number] [place] [address]- 5817 Aug, [facility] [place] [facility] [address] [id number] [place] [address]- 8900 Aug, [facility] [place] [facility] [address] [id number] [place] [address]- 9852 28 Jul, 2012 [facility] [place] [facility] [address] [id number] [place] [address]- 7360 25 Sep2011 [facility] [place] [facility] [address] [id number] [place] [address]- 5757 19 Sep2011 [facility] [place] [facility] [address] [id number] [place] [address]- 3726 17 Sep2011 [facility] [place] [facility] [address] [id number] [place] [address]- 6520 20 Jun, 2012 [facility] [place] [facility] [address] [id number] [place] [address]- 3245 16 Jun, 2012 [facility] [place] [facility] [address] [id number] [place] [address]- 0096 15 Jun, 2012 [facility] [place] [facility] [address] [id number] [place] [address]- 9996 15 Jun, 2012 [facility] [place] [facility] [address] [id number] [place] [address]- 0830 13 Jun, 2012 [facility] [place] [facility] [address] [id number] [place] [address]- 3033 March, [facility] [place] [facility] [address] [id number] [place] [address]- 5457 04 Feb, 2012 [facility] [place] [facility] [address] [id number] [place] [address]- 3568 Jan, [facility] [place] [facility] [address] [id number] [place] [address]- 7320 27 Jan, 2012 [facility] [place] [facility] [address] [id number] [place] [address]- 8251 22 Jan, 2012 [facility] [place] [facility] [address] [id number] [place] [address]- 3597 14 Jan, 2012 [facility] [place] [facility] [address] [id number] [place] [address]- 2237 14 Jan, 2012 [facility] [place] [facility] [address] [id number] [place] [address]- 1614 14 Jan, 2012 [facility] [place] [facility] [address] [id number] [place] [address]- 2053 28 Dec, 2011 [facility] [place] [facility] [address] [id number] [place] [address]- 8012 27 Dec, 2011 [facility] [place] [facility] [address] [id number] [place] [address]- 2329 23 Dec, 2011 [facility] [place] [facility] [address] [facility] [id number] [place] [address]- 1683 21 Dec, 2011 [facility] [address] [facility] [id number] [place] [address]- 7310 20 Dec, 2011 [facility] [address] [facility] [id number] [place] [address]- 7176 19 Dec, 2011 [facility] [id number] [place] [address], [place] [address]- 1722 17 Dec, 2011 [facility] [address] [facility] [id number] [place] [address]- 2426 16 Dec, 2011 [facility] [id number] [place] [address], [place] [address]- 3147 Nov, [facility] [id number] [place] [address]- [address] Oct, [facility] [id number], [place] [address]- 0667 Sep, [facility] [id number], [place] [address]- 4441 18 Sep, 2011 [facility] [id number], [place] [address]- 5570 17 Sep, 2011 [facility] [id number], [place] [address]- 2503 17 Sep, 2011 [facility] [id number], [place] [address]- 8629 Sep, [facility] [address] [id number], [place] [address]- 2963 04 Sep, 2011 [facility] [id number], [place] [address]- 9249 14 Jan, 2011 [facility] [address] [id number], [place] [address]- 1571 17 Apr, 2010 IMMUNIZATIONS No Known Immunizations SOCIAL HISTORY Never Assessed REASON FOR VISIT f/u, update contract, aims PLAN OF CARE Activity Details Follow Up 4 Weeks Reason: f/u VITAL SIGNS Height 66 in 2017-12-08 Weight 126.6 lbs 2017-12-08 Heart Rate 80 bpm 2017-12-08 Respiratory Rate 20 2017-12-08 BMI 20.43 kg/m2 2017-12-08 Blood pressure systolic 102 mmHg 2017-12-08 Blood pressure diastolic 66 mmHg 2017-12-08 MEDICATIONS Medication Instructions Dosage Frequency Start Date End Date Duration Status Abilify 5 mg Orally Once a day 1 tablet 24h Nov, 30 day(s) Active Lamictal 150 MG Orally Once a day 1 tablet 24h Aug, Active Ibuprofen 800 MG Orally Three times a day 1 tablet with food or milk as needed 8h Oct, Nov, 30 days Active Oxycodone-Acetaminophen 10-325 MG Orally every 4 hrs 1 tablet as needed 4h Active Klonopin 0.5 MG Orally three times a day as needed 1 tablet Aug, Active Remeron 30 MG Orally Once a day at bedtime 1 tablet Oct, Active RESULTS No Results PROCEDURES No Known [...]
--- OUTSIDE RECORDS SUMMARY | 2018-08-05 20:45 | XMS REPORT ---
Author Author TOMASZ MARGARITA [facility] Address [address] [place] [address] Care Team Providers Care Product Grader Name Role Phone TOMASZMARGARITA Unavailable PROBLEMS Type Condition ICD9-CM Code [id number] Code Onset Dates Condition Status SNOMED Code Problem Generalized anxiety disorder F41.1 Active 00405182 Problem Acute non intractable tension-type headache G44.209 Active 050988441 Problem Acute right-sided low back pain with right-sided sciatica M54.41 Active 688776749 Problem Post traumatic stress disorder F43.10 Active 45902828 Problem Bipolar disorder, current episode mixed, moderate F31.62 Active 683073926 Problem Endometriosis N80.9 Active 978698317 Problem Borderline personality disorder F60.3 Active 48738309 ALLERGIES No Information ENCOUNTERS Encounter Location Date Diagnosis [facility] [address] [address] May, [facility] [address] [id number] Apr, Dental examination Z01.20 [facility] [id number] [place] [address] 61432 -5824 Apr, [facility] [address] 36[address]- 1347 Apr, Dental examination Z01.20 [facility] [address] 9[address] Apr, Tooth pain K08.89 [facility] [address] 42027- 7059 06 Apr, 2018 Bipolar disorder, current episode mixed, moderate F31.62 ; Post traumatic stress disorder F43.10 and Borderline personality disorder F60.3 [facility] [id number] [place] [address] 11161 -6771 March, Abdominal pain R10.9 ; UTI symptoms R39.9 and Other microscopic hematuria R31.29 [facility] [id number] [place] [address] 48689- 1226 March, [facility] [address] 88317- 0039 March, Bipolar disorder, current episode mixed, moderate F31.62 ; Post traumatic stress disorder F43.10 and Borderline personality disorder F60.3 [place] [id number] [place] [address] 07267- 2405 Feb, Encounter for immunization Z23 [place] [id number] [place] [address] 35602- 4931 Feb, Bipolar disorder, current episode mixed, moderate F31.62 ; Post traumatic stress disorder F43.10 and Borderline personality disorder F60.3 [place] [id number] [place] [address] 42724- 2075 Feb, Bipolar disorder, current episode mixed, moderate F31.62 ; Post traumatic stress disorder F43.10 ; Borderline personality disorder F60.3 and Other halfway (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 Z79.899 [place] [id number] [place] [address] 51925- 3005 Jan, Encounter for immunization Z23 [facility] [id number] [place] [address] 17535- 4939 Jan, [facility] [id number] [place] [address] 72877- 1958 Jan, Bipolar disorder, current episode mixed, moderate F31.62 [facility] [id number] [place] [address] 20402 -7838 Jan, Lumbar back pain M54.5 [facility] [id number] [place] [address] 41383- 5687 Dec, Low back pain M54.5 [facility] [id number] [place] [address] 79549- 7997 Dec, Bipolar disorder, current episode mixed, moderate F31.62 [facility] [id number] [place] [address] 83635- 5588 Dec, Generalized anxiety disorder F41.1 and Bipolar disorder, current episode mixed, moderate F31.62 [facility] [address] 40310 -25[address] Nov, Acute non intractable tension-type headache G44.209 [place] [address] [id number]- 3547 Nov, Bipolar disorder, current episode mixed, moderate F31.62 ; Post traumatic stress disorder F43.10 and Borderline personality disorder F60.3 [place] [id number] [place] [address] 18239- 0356 Nov, Bipolar disorder, current episode mixed, moderate F31.62 [facility] [place] [id number] [place] [address] 75897 -6219 Nov, Abdominal pain R10.9 ; History of PCOS Z87.42 ; History of endometriosis Z87.42 and Pelvic pain R10.2 [place] [id number] [place] [address] 16360- 6441 Nov, [facility] [id number] [place] [address] 78472 -2187 Oct, History of PCOS Z87.42 ; History of endometriosis Z87.42 and Pain R52 [place] [address] 85927- 7872 Oct, Bipolar disorder, current episode mixed, moderate F31.62 ; Post traumatic stress disorder F43.10 and Borderline personality disorder F60.3 [place] [id number] [place] [address] 15149- 2471 Oct, Bipolar disorder, current episode mixed, moderate F31.62 [facility] [id number] [place] [address] 59405- 7077 Sep, Bipolar disorder, current episode mixed, moderate F31.62 ; Post traumatic stress disorder F43.10 ; Borderline personality disorder F60.3 and Other terminal clerk (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 Z79.899 [facility] [id number] [place] [address] 38703- 0102 Sep, Bipolar disorder, current episode mixed, moderate F31.62 [facility] [id number] [place] [address] 22884 -8070 Sep, Endometriosis N80.9 and Acute right-sided low back pain with right-sided sciatica M54.41 [place] [id number] [place] [address] 10139- 2401 Aug, [place] [id number] [place] [address] 49693- 8791 Aug, Bipolar disorder, current episode mixed, moderate F31.62 ; Post traumatic stress disorder F43.10 and Borderline personality disorder F60.3 [place] [id number] [place] [address] 48933- 6657 11 Aug, 2017 Bipolar disorder, current episode mixed, moderate F31.62 ; Post traumatic stress disorder F43.10 and Borderline personality disorder F60.3 [place] [address] [place] [address] 82529- 0983 13 Jul, 2017 Bipolar disorder, current episode mixed, moderate F31.62 ; Post traumatic stress disorder F43.10 and Borderline personality disorder F60.3 [facility] [id number] [place] [address] 94602 -8385 11 Jul, 2017 Pharyngitis, unspecified etiology J02.9 and Streptococcal pharyngitis J02.0 [facility] [address] [place] [address] 98727- 5089 16 Jun, 2017 Bipolar disorder, current episode mixed, moderate F31.62 ; Post traumatic stress disorder F43.10 and Borderline personality disorder F60.3 [facility] [address] [place] [address] 41489- 3629 May, [facility] [id number] [place] [address] 87208- 5927 May, [facility] [id number] [place] [address] 94640- 6496 May, Bipolar disorder, current episode mixed, moderate F31.62 and Generalized anxiety disorder F41.1 [facility] [id number] [place] [address] 73523- 8052 March, Bipolar disorder, current episode mixed, moderate F31.62 and Generalized anxiety disorder F41.1 [facility] [id number] [place] [address] 17061- 1749 March, Pelvic pain R10.2 [facility] [id number] [place] [address] 36814- 6973 March, [facility] [id number] [place] [address] 53921- 7464 Feb, Bipolar disorder, current episode mixed, moderate F31.62 and Generalized anxiety disorder F41.1 [facility] [address] [place] [address] 25251- 5449 Jan, [facility] [id number] [place] [address] 97495- 2445 Jan, Bipolar disorder, current episode mixed, moderate F31.62 [facility] [address] [place] [address] 74780- 0010 Jan, Bipolar disorder, current episode mixed, moderate F31.62 [facility] [address] [place] [address] 93836- 6715 Jan, Bilateral low back pain without sciatica M54.5 [facility] [address] [place] [address] [id number] Jan, Dental caries K02.9 and Dental examination Z01.20 [facility] [address] [id number] 09 Jan, 2017 Encounter for dental examination and cleaning without abnormal findings Z01.20 [facility] [address] [place] [address] 370557- 4080 06 Jan, 2017 Bipolar disorder, current episode mixed, moderate F31.62 and Generalized anxiety disorder F41.1 [facility] [id number] [place] [address] 44292- 4822 Dec, [facility] [id number] [place] [address] 74104- 3104 Dec, Bipolar disorder, current episode mixed, moderate F31.62 and Generalized anxiety disorder F41.1 [facility] [id number] [place] [address] 84254- 3096 03 Dec, 2016 Other fatigue R53.83 and Orthostatic hypotension I95.1 [facility] [address] [place] [address] [id number] Nov, Dental examination Z01.20 [facility] [id number] [place] [address] 75260 -9924 02 Nov, 2016 Bronchitis J40 [facility] [id number] [place] [address] 88769- 1868 14 Oct, 2016 Generalized anxiety disorder F41.1 [facility] [id number] [place] [address] 92059- 8726 14 Sep, 2016 Bipolar disorder, current episode mixed, moderate F31.62 and Generalized anxiety disorder F41.1 [facility] [id number] [place] [address] 72086- 7064 02 Sep, 2016 Bipolar disorder, current episode mixed, moderate F31.62 and Generalized anxiety disorder F41.1 [facility] [id number] [place] [address] 99709 -8957 08 Jul, 2016 Upper respiratory tract infection, unspecified type J06.9 [facility] [id number] [place] [address] 88892- 3488 Jun, Bipolar disorder, current episode mixed, moderate F31.62 and Generalized anxiety disorder F41.1 [facility] [id number] [place] [address] 30394- 4177 Apr, [facility] [id number] [place] [address] 14092- 4308 Apr, Encounter for test, result positive Z32.01 [facility] [id number] [place] [address] 29189- 9452 March, [facility] [address] 77468- 3687 March, Bipolar disorder, current episode mixed, moderate F31.62 and Generalized anxiety disorder F41.1 [place] [id number] [place] [address] 28663- 8749 March, Bipolar disorder, current episode mixed, moderate F31.62 and Generalized anxiety disorder F41.1 [facility] [id number] [place] [address] 27781- 4930 March, [facility] [id number] [place] [address] 05022- 6480 March, [facility] [id number] [place] [address] 74212- 4939 Feb, [facility] [id number] [place] [address] 35566- 3762 Feb, [facility] [id number] [place] [address] 57492- 8700 Feb, Bipolar disorder, current episode mixed, moderate F31.62 and Generalized anxiety disorder F41.1 [facility] [id number] [place] [address] 01501- 0753 Jan, Abdominal pain R10.9 [facility] [id number] [place] [address] 81765- 7731 14 Jan, 2016 [place] [address] [place] [address] 83930- 0247 29 Dec, 2015 Dental examination Z01.20 [place] [id number] [place] [address] 06166- 1036 22 Dec, 2015 Dental examination Z01.20 and Dental caries K02.9 [place] [id number] [place] [address] 96570- 0624 15 Dec, 2015 Bipolar disorder, current episode mixed, moderate F31.62 and Generalized anxiety disorder F41.1 [place] [id number] [place] [address] 447495- 8019 15 Dec, 2015 [place] [id number] [place] [address] 73102- 6767 Nov, Bipolar disorder, current episode mixed, moderate F31.62 ; Generalized anxiety disorder F41.1 and Seizure-like activity R56.9 [place] [address] [place] [address] 48233- 8846 Oct, [place] [address] 37789- 1138 Oct, Bipolar disorder, current episode mixed, moderate F31.62 [place] [id number] [place] [address] 67011- 7991 14 Oct, 2015 Well woman exam Z01.419 [...] Tobacco use Z72.0 and Hot flashes N95.1 [place] [address] [place] [address] 80490- 4478 09 Oct, 2015 Seizure-like activity R56.9 and Irregular periods N92.6 [place] [address] 82570- 8147 Oct, Bipolar disorder, current episode mixed, moderate F31.62 ; Generalized anxiety disorder F41.1 and Underweight R63.6 [place] [address] 07489- 8943 Oct, [place] [address] 31421- 9418 Oct, Generalized anxiety disorder F41.1 and Unspecified mood [ affective] disorder F39 [facility] [address] 17511 -0837 Oct, Back pain M54.9 and Anxiety F41.9 [place] [address] 36404- 5651 Oct, [facility] [address] 44124 -7838 Sep, Arm pain, left M79.602 [place] [address] 25715- 5115 Sep, [facility] [address] [id number] Sep, Dental examination Z01.20 and Dental caries K02.9 [place] [address] 65924- 9711 Sep, Generalized anxiety disorder F41.1 and Unspecified episodic mood disorder F39 [place] [address] 58156- 5065 Sep, Bilateral low back pain without sciatica M54.5 and Seizure- like activity R56.9 [place] [address] 57002- 0526 Aug, [place] [address] [address]- 4181 Aug, [facility] [id number] [place] [address] 96567- 7665 Aug, [facility] [id number] [place] [address] 26335- 6253 Aug, Visual changes H53.9 and Bilateral low back pain without sciatica M54.5 [facility] [id number] [place] [address] 41019- 0034 Jul, [facility] [id number] [place] [address] 32846- 9788 Jun, Bipolar I disorder, most recent episode (or current) mixed, moderate 296.62 ; Generalized anxiety disorder 300.02 and High risk medication use V58.69 [facility] [id number] [place] [address] 52652- 1484 Jun, [facility] [id number] [place] [address] 70128- 6621 May, [facility] [id number] [place] [address] 84607- 6974 May, Bipolar I disorder, most recent episode (or current) mixed, moderate 296.62 and Generalized anxiety disorder 300.02 [facility] [address] [address] May, Dental examination V72.2 [facility] [address] [place] [address] 73322- 7120 March, Bipolar I disorder, most recent episode (or current) mixed, moderate 296.62 and Generalized anxiety disorder 300.02 [facility] [id number] [place] [address] 93246- 1436 March, [facility] [address] [place] [address] 30528- 9086 March, [facility] [id number] [place] [address] 58429- 1392 March, Underweight 783.22 ; Hand pain, right 729.5 and Reflux gastritis 535.40 [facility] [address] [place] [address]- 9526 14 Feb, 2015 [facility] [address] [address]- 5786 13 Feb, 2015 [facility] [id number] [place] [address] 63263- 7497 18 Jan, 2015 [facility] [id number] [address]- 7726 18 Jan, 2015 [facility] [address] [address]- 8390 16 Jan, 2015 [facility] [address] [address]- 9754 16 Jan, 2015 [facility] [address] [address]- 1538 Jan, [facility] [address] [address]- 5125 Jan, [facility] [address] [address]- 1221 05 Jan, 2015 [facility] [address] [address]- 9560 05 Jan, 2015 [facility] [address] [address]- 9052 Jan, [facility] [address] [address]- 2521 Jan, [facility] [address] [address]- 8206 Jan, [facility] [id number] [address]- 5586 Jan, [facility] [address] [address]- 0355 20 Dec, 2014 [facility] [place] [facility] [address] [id number] [place] [address]- 5965 20 Dec, 2014 [facility] [place] [facility] [address] [id number] [place] [address]- 4786 19 Dec, 2014 [facility] [place] [facility] [address] [facility] [id number] [place] [address]- 7114 19 Dec, 2014 [facility] [place] [facility] [address] [facility] [id number] [place] [address]- 6475 18 Dec, 2014 [facility] [place] [facility] [address] [facility] [id number] [place] [address]- 7441 17 Dec, 2014 [facility] [place] [facility] [address] [facility] [id number] [place] [address]- 6780 17 Dec, 2014 [facility] [place] [facility] [id number] [place] [address]- 5729 16 Dec, 2014 [facility] [place] [facility] [address] [facility] [id number] [place] [address]- 0602 16 Dec, 2014 [facility] [place] [facility] [id number] [place] [address]- 6093 05 Dec, 2014 [facility] [place] [facility] [id number] [address]- 9594 05 Dec, 2014 [facility] [place] [facility] [address] [facility] [id number] [place] [address]- 2549 05 Dec, 2014 [facility] [place] [facility] [address] [facility] [id number], [place] [address]- 2549 05 Dec, 2014 [facility] [place] [facility] [address] [facility] [id number] [place] [address]- 8098 04 Dec, 2014 [facility] [place] [facility] [address] [facility] [id number], [place] [address]- 2542 04 Dec, 2014 [facility] [place] [facility] [id number] [address]- 2541 Dec, [facility] [place] [facility] [address] [id number] [place] [address]- 3271 Dec, [facility] [place] [facility] [address] [id number], [place] [address]- 0226 Dec, [facility] [place] [facility] [address] [id number], [place] [address]- 5762 Dec, [facility] [place] [facility] [address] [id number], [place] [address]- 2991 Nov, [facility] [place] [facility] [address] [id number] [place] [address]- 2442 Nov, [facility] [place] [facility] [address] [id number], [place] [address]- 5257 Nov, [facility] [place] [facility] [address] [id number][place] [address]- 3413 Nov, [facility] [place] [facility] [address] [id number][place] [address]- 2575 Nov, [facility] [place] [facility] [address] [id number], [place] [address]- 1525 Nov, [facility] [place] [facility] [id number] [id number] Nov, [facility] [place] [facility] [address] [id number][place] [address]- 8454 Nov, [facility] [place] [facility] [address] [id number][place] [address]- 4210 Nov, [facility] [place] [facility] [address] [id number] [id number] Nov, [facility] [place] [facility] [address] [id number], [place] [address]- 2800 Nov, [facility] [place] [facility] [address] [id number], [place] [address]- 7257 Nov, [facility] [place] [facility] [address] [id number] [place] [address]- 5276 31 Oct, 2014 [facility] [place] [facility] [address] [id number] [place] [address]- 7619 31 Oct, 2014 [facility] [place] [facility] [address] [id number] [place] [address]- 7297 30 Oct, 2014 [facility] [place] [facility] [address] [id number] [place] [address]- 8428 30 Oct, 2014 [facility] [place] [facility] [address] [id number] [place] [address]- 4332 Oct, [facility] [place] [facility] [address] [id number] [place] [address]- 0605 Oct, [facility] [place] [facility] [address] [id number] [place] [address]- 9780 Oct, [facility] [place] [facility] [address] [id number] [place] [address]- 6019 Oct, [facility] [place] [facility] [address] [id number] [place] [address]- 1780 Oct, [facility] [place] [facility] [address] [id number] [place] [address]- 5095 Oct, [facility] [place] [facility] [address] [facility] [id number] [place] [address]- 7840 Oct, [facility] [place] [facility] [address] [id number] [place] [address]- 6222 Oct, [facility] [place] [facility] [address] [id number] [place] [address] Sep, [facility] [place] [facility] [address] [id number] [place] [address] Sep, [facility] [place] [facility] [address] [id number] [place] [address] Sep, [facility] [place] [facility] [address] [id number] [place] [address] Sep, [facility] [place] [facility] [address] [id number] [place] [address] Sep, [facility] [place] [facility] [address] [id number] [place] [address] Sep, [facility] [place] [facility] [address] [id number] [place] [address] Sep, [facility] [place] [facility] [address] [id number] [place] [address] Sep, [facility] [place] [facility] [address] [id number] [place] [address] Aug, [facility] [place] [facility] [address] [id number] [place] [address] Aug, [facility] [place] [facility] [address] [id number] [place] [address] Aug, [facility] [place] [facility] [address] [id number] [place] [address] 2255 Aug, [facility] [place] [facility] [address] [id number] [place] [address] 59[address] Aug, [facility] [place] [facility] [address] [id number] [place] [address] 2507 Aug, [facility] [place] [facility] [address] [id number] [place] [address] 1587 Aug, [facility] [place] [facility] [address] [id number], [place] [address] Aug, [facility] [place] [facility] [address] [id number] [place] [address] 2648 Aug, [facility] [place] [facility] [address] [id number] [place] [address] 98[address] Aug, [facility] [place] [facility] [address] [id number] [place] [address] Aug, [facility] [place] [facility] [address] [id number] [place] [address]- 8166 Aug, [facility] [place] [facility] [address] [id number] [place] [address]- 7[address] Aug, [facility] [place] [facility] [address] [id number] [place] [address] 3139 Jul, [facility] [place] [facility] [address] [id number] [place] [address] 7086 Jul, [facility] [place] [facility] [address] [id number] [place] [address]- 0019 Jul, [facility] [place] [facility] [address] [id number] [place] [address]- 4220 Jul, [facility] [place] [facility] [address] [id number] [place] [address]- 6087 Jun, [facility] [place] [facility] [address] [id number] [place] [address]- 7877 Jun, [facility] [place] [facility] [address] [id number] [place] [address]- 7036 Jun, [facility] [place] [facility] [address] [id number] [place] [address]- 2232 Jun, [facility] [place] [facility] [address] [id number] [place] [address]- 3197 Jun, [facility] [place] [facility] [address] [id number] [place] [address]- 9018 Jun, [facility] [place] [facility] [address] [id number] [place] [address]- 5863 May, [facility] [place] [facility] [address] [id number] [place] [address]- 1474 May, [facility] [place] [facility] [address] [id number] [place] [address]- 5750 May, [facility] [place] [facility] [address] [id number] [place] [address]- 6368 May, [facility] [place] [facility] [address] [id number] [place] [address] 6817 Apr, [facility] [address] [id number] [place] [address] 3614 Apr, [facility] [place] [facility] [address] [id number] [place] [address]- 8899 March, [facility] [address] [id number] [place] [address] 97[address] March, [facility] [place] [facility] [address] [id number] [place] [address]- 1146 March, [facility] [address] [id number] [place] [address] March, [facility] [place] [facility] [address] [id number] [place] [address]- 1547 March, [facility] [place] [facility] [address] [id number] [place] [address] 2403 March, [facility] [address] [id number] [place] [address]- 3518 Feb, [facility] [place] [facility] [address] [id number] [place] [address]- 0126 Feb, [facility] [place] [facility] [address] [id number] [place] [address]- 2821 Dec, [facility] [place] [facility] [address] [id number] [place] [address]- 2831 Dec, [facility] [place] [facility] [address] [id number] [place] [address]- 5481 Nov, [facility] [place] [facility] [address] [id number] [place] [address]- 1226 Nov, [facility] [place] [facility] [address] [id number] [place] [address]- 6586 Sep, [facility] [place] [facility] [address] [id number] [place] [address]- 8878 14 Sep, 2013 [facility] [place] [facility] [address] [id number] [place] [address]- 7066 Sep, [facility] [place] [facility] [address] [id number] [place] [address]- 2919 Sep, [facility] [place] [facility] [address] [id number] [place] [address]- 0445 Sep, [facility] [place] [facility] [address] [id number] [place] [address]- 8555 Sep, [facility] [place] [facility] [address] [id number] [place] [address]- 4709 Sep, [facility] [place] [facility] [address] [id number] [place] [address]- 3911 Aug, [facility] [place] [facility] [address] [id number] [place] [address]- 1272 Aug, [facility] [place] [facility] [address] [id number], [place] [address] 1317 Aug, [facility] [place] [facility] [address] [id number] [place] [address]- 8989 Aug, [facility] [place] [facility] [address] [id number], [place] [address] 4107 Aug, [facility] [place] [facility] [address] [id number], [place] [address]- 0164 Aug, [facility] [place] [facility] [address] [id number], [place] [address]- [address] 19 Jul, 2013 [facility] [place] [facility] [address] [id number] [place] [address]- 4366 19 Jul, 2013 [facility] [place] [facility] [address] [id number], [place] [address]- 3756 16 Jul, 2013 [facility] [place] [facility] [address] [id number], [place] [address]- 8057 13 Jul, 2013 [facility] [place] [facility] [address] [id number] [place] [address]- 4616 Jun, [facility] [address] [id number] [place] [address]- 8339 Jun, [facility] [place] [facility] [address] [id number] [place] [address]- 1580 Jun, [facility] [place] [facility] [address] [id number] [place] [address]- 6851 Jun, [facility] [place] [facility] [address] [id number] [place] [address]- 3058 Jun, [facility] [place] [facility] [address] [id number] [place] [address]- 2358 Jun, [facility] [place] [facility] [address] [id number] [place] [address]- 9775 Jun, [facility] [place] [facility] [address] [id number] [place] [address]- 8075 May, [facility] [place] [facility] [address] [id number] [place] [address]- 0717 May, [facility] [place] [facility] [address] [id number] [place] [address]- 7511 May, [facility] [place] [facility] [address] [id number] [place] [address]- 2051 May, [facility] [place] [facility] [address] [id number] [place] [address]- 7632 May, [facility] [place] [facility] [address] [id number] [place] [address]- 0262 May, [facility] [place] [facility] [address] [id number] [place] [address]- 6602 May, [facility] [place] [facility] [address] [id number] [place] [address]- 4506 Apr, [facility] [place] [facility] [address] [id number] [place] [address]- 1187 Apr, [facility] [place] [facility] [address] [id number] [place] [address]- 2178 27 Apr, 2013 [facility] [place] [facility] [address] [id number] [place] [address]- 7936 26 Apr, 2013 [facility] [place] [facility] [address] [id number] [place] [address]- 6397 20 Apr, 2013 [facility] [place] [facility] [address] [id number] [place] [address]- 0360 18 Apr, 2013 [facility] [place] [facility] [address] [id number] [place] [address]- 9949 18 Apr, 2013 [facility] [place] [facility] [address] [id number] [place] [address]- 5029 18 Apr, 2013 [facility] [place] [facility] [address] [id number] [place] [address]- 0947 17 Apr, 2013 [facility] [place] [facility] [address] [id number] [place] [address]- 7105 14 Apr, 2013 [facility] [place] [facility] [address] [id number] [place] [address]- 2223 14 Apr, 2013 [facility] [place] [facility] [address] [id number] [place] [address]- 8476 11 Apr, 2013 [facility] [place] [facility] [address] [id number] [place] [address]- 2886 10 Apr, 2013 [facility] [place] [facility] [address] [id number] [place] [address]- 2423 09 Apr, 2013 [facility] [place] [facility] [address] [id number] [place] [address]- 1828 07 Apr, 2013 [facility] [place] [facility] [address] [id number] [place] [address]- 5226 06 Apr, 2013 [facility] [place] [facility] [address] [id number] [place] [address]- 9642 06 Apr, 2013 [facility] [place] [facility] [address] [id number] [place] [address]- 1776 Apr, [facility] [address] [id number] [place] [address]- 3430 Apr, [facility] [address] [id number] [place] [address]- 1270 March, [facility] [address] [id number] [place] [address]- 5503 March, [facility] [address] [id number] [place] [address]- 8521 March, [facility] [address] [id number] [place] [address]- 1520 March, [facility] [address] [id number] [place] [address]- 4195 March, [facility] [address] [id number] [place] [address]- 5295 March, [facility] [address] [id number] [place] [address]- 6237 March, [facility] [address] [id number] [place] [address]- 1061 Feb, [facility] [address] [id number] [place] [address]- 3328 Feb, [facility] [address] [id number] [place] [address]- 1744 Jan, [facility] [place] [facility] [address] [id number] [place] [address]- 0332 18 Jan, 2013 [facility] [place] [facility] [address] [id number] [place] [address]- 8461 15 Jan, 2013 [facility] [place] [facility] [address] [id number] [place] [address]- 4031 14 Jan, 2013 [facility] [place] [facility] [address] [id number] [place] [address]- 2733 13 Jan, 2013 [facility] [place] [facility] [address] [id number] [place] [address]- 6745 12 Jan, 2013 [facility] [address] [id number] [place] [address]- 2736 11 Jan, 2013 [facility] [address] [id number] [place] [address] 2546 09 Jan, 2013 [facility] [address] [id number] [place] [address]- 1447 08 Jan, 2013 [facility] [address] [id number] [place] [address]- 3684 07 Jan, 2013 [facility] [address] [id number] [place] [address]- 7658 06 Jan, 2013 [facility] [address] [id number] [place] [address]- 9732 17 Nov, 2012 [facility] [address] [id number] [place] [address]- 0510 Oct, [facility] [address] [id number] [place] [address]- 1247 Oct, [facility] [address] [id number] [place] [address]- 7540 Oct, [facility] [address] [id number] [place] [address]- 9622 Oct, [facility] [address] [id number] [place] [address]- 9146 30 Sep, 2012 [facility] [address] [id number] [place] [address]- 3964 30 Sep, 2012 [facility] [place] [facility] [address] [id number] [place] [address]- 6642 Sep, [facility] [place] [facility] [address] [id number] [place] [address]- 2546 16 Sep, 2012 [facility] [address] [id number] [place] [address]- 1515 Sep, [facility] [place] [facility] [address] [id number] [place] [address]- 6015 16 Sep, 2012 [facility] [place] [facility] [address] [id number] [place] [address]- 6202 Sep, [facility] [place] [facility] [address] [id number] [place] [address]- 5324 Sep, [facility] [place] [facility] [address] [id number] [place] [address]- 3837 Sep, [facility] [place] [facility] [address] [id number] [place] [address]- 4522 Sep, [facility] [place] [facility] [address] [id number] [place] [address]- 5552 Sep, [facility] [place] [facility] [address] [facility] [id number] [place] [address]- 3772 Aug, [facility] [place] [facility] [address] [id number] [place] [address]- 2468 Aug, [facility] [place] [facility] [address] [id number] [place] [address]- 3862 Aug, [facility] [place] [facility] [address] [facility] [id number], [place] [address]- 1835 28 Jul, 2012 [facility] [place] [facility] [address] [facility] [id number], [place] [address]- 6689 25 Jul, 2012 [facility] [place] [facility] [address] [id number], [place] [address]- 4542 19 Jul, 2012 [facility] [place] [facility] [address] [id number] [place] [address]- 4258 17 Jul, 2012 [facility] [place] [facility] [address] [id number], [place] [address]- 3126 20 Jun, 2012 [facility] [place] [facility] [address] [facility] [id number], [place] [address]- 1011 16 Jun, 2012 [facility] [place] [facility] [address] [id number], [place] [address]- 7687 15 Jun, 2012 [facility] [address] [id number] [place] [address]- 9610 15 Jun, 2012 [facility] [place] [facility] [address] [id number] [place] [address]- 2157 13 Jun, 2012 [facility] [place] [facility] [address] [id number] [place] [address]- 6184 March, [facility] [place] [facility] [address] [id number] [place] [address]- 7438 04 Feb, 2012 [facility] [place] [facility] [address] [id number] [place] [address]- 2153 28 Jan, 2012 [facility] [place] [facility] [address] [id number] [place] [address]- 8912 27 Jan, 2012 [facility] [address] [id number] [place] [address]- 9847 Jan, [facility] [place] [facility] [address] [id number] [place] [address]- 3324 14 Jan, 2012 [facility] [place] [facility] [address] [id number] [place] [address]- 4537 14 Jan, 2012 [facility] [place] [facility] [address] [facility] [id number] [place] [address]- 2881 14 Jan, 2012 [facility] [place] [facility] [address] [id number] [place] [address]- 7355 28 Dec, 2011 [facility] [place] [facility] [address] [id number] [place] [address]- 6279 27 Dec, 2011 [facility] [place] [facility] [address] [id number] [place] [address]- 6353 23 Dec, 2011 [facility] [place] [facility] [address] [id number] [place] [address]- 1369 21 Dec, 2011 [facility] [place] [facility] [address] [id number] [place] [address]- 2402 20 Dec, 2011 [facility] [address], [place] [address]- 3149 Dec, [facility] [address], [place] [address]- 6595 Dec, [facility] [address], [place] [address]- 4033 Dec, [facility] [address], [place] [address]- 7177 Nov, [facility] [address], [place] [address]- 9366 Oct, [facility] [id number] [place] [address]- 1605 Sep, [facility] [address], [place] [address]- 4266 Sep, [facility] [address], [place] [address]- 6265 Sep, [facility] [address], [place] [address]- 0618 Sep, [facility] [address], [place] [address]- 7000 Sep, [facility] [address] [id number], [place] [address]- 1723 Sep, [facility] [address] [id number], [place] [address]- 7897 Jan, [facility] [address] [id number], [place] [address]- 5818 Apr, IMMUNIZATIONS No Known Immunizations SOCIAL HISTORY [...] History Left ovary removed 12/2016 Hospitalization History [facility] Admission x4 2009 most recent admission Hospitalization History [facility]; overdose 2010 Hospitalization History child 11/29/2016
[2018-08-05] MEDS ORDERED: KETOROLAC 30 MG/ML VIAL IVP ONE (21:00)
--- NOTE | 2018-08-05 21:00 | ED Abdominal Pain ---
General Chief Complaint: Abdominal/GI Problems Stated Complaint: ABD PAIN Source of Information: Patient Exam Limitations: No Limitations History of Present Illness Date Seen by Provider: Aug 05, 2018 Time Seen by Provider: 20:58 Initial Comments To ER per private vehicle from home with reports of left lower quadrant and left upper quadrant abdominal pain associated with nausea since yesterday. No changes in bowel or bladder habits. She denies having any idea what this might be, never had it before. History of hysterectomy with right salpingo- oophorectomy.k Timing/Duration: 1-2 Days Severity/Quality: Moderate Location: LUQ, LLQ Radiation: No Radiation Associated Symptoms: No Fever/Chills; Nausea/Vomiting Allergies and Home Medications Allergies Coded Allergies: Penicillins (Unverified Allergy, Mild, PT ABLE TO TAKE ANCEF, 03/26/14) diclofenac (Unverified Allergy, Unknown, 01/21/15) divalproex sodium (Verified Allergy, Unknown, 08/26/15) Home Medications Clonazepam 0.5 Mg Tablet, 0.5 MG PO TID, (Reported) Hydrocodone/Acetaminophen 1 Each Tablet, 1 EACH PO Q6H PRN for PAIN-MODERATE Prescribed by: ISMAEL SOL on 08/05/182228 Ibuprofen 800 Mg Tablet, 800 MG PO Q8H PRN for PAIN Prescribed by: ISMAEL SOL on 08/05/182228 Lamotrigine 150 Mg Tablet, 150 MG PO DAILY, (Reported) Methylprednisolone 4 Mg Tab.ds.pk, 4 MG PO UD Prescribed by: MIRANDA LOCO on 01/09/1850 Methylprednisolone 4 Mg Tab.ds.pk, 4 MG PO UD Prescribed by: ISMAEL SOL on 04/27/18 190 Mirtazapine 30 Mg Tablet, 30 MG PO HS, (Reported) Ondansetron 4 Mg Tab.rapdis, 4 MG PO Q4H Prescribed by: MIRANDA LOCO on 01/09/1850 Orphenadrine Citrate 100 Mg Tablet.er, 100 MG PO BID FOR MUSCLE SPASMS Prescribed by: MIRANDA LOCO on 01/09/1850 Patient Home Medication List Home Medication List Reviewed: Yes Review of Systems Review of Systems Constitutional: see HPI; No chills EENTM: No Symptoms Reported Respiratory: No Symptoms Reported Cardiovascular: No Symptoms Reported Gastrointestinal: See HPI, Abdominal Pain; Denies Constipated, Denies Diarrhea ; Nausea; Denies Vomiting Genitourinary: See HPI, Flank Pain Musculoskeletal: no symptoms reported Skin: no symptoms reported Psychiatric/Neurological: No Symptoms Reported Endocrine: No Symptoms Reported Hematologic/Lymphatic: No Symptoms Reported Past Zjdckep-Kzfcdi-Oqbrqt Hx Patient Social History Alcohol Use: Denies Use Recreational Drug Use: No Smoking Status: Current Everyday Smoker Type Used: Cigarettes 2nd Hand Smoke Exposure: Yes Recent Foreign Travel: No Contact w/Someone Who Travel: No Recent Hopitalizations: No Immunizations Up To Date Tetanus Booster (TDap): Less than 5yrs PED Vaccines UTD: Yes Date of Influenza Vaccine: Aug 30, 2017 Seasonal Allergies Seasonal Allergies: No Past Medical History Surgeries: Yes (LAPAROTOMY; HYST ; LSO; ) Abdominal, Adenoidectomy, Hysterectomy, Oophorectomy, Tonsillectomy Respiratory: Yes Asthma Cardiac: Yes (Hx. 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 Sexually Transmitted Disease: No HIV/AIDS: No Genitourinary: No Gastrointestinal: No Musculoskeletal: Yes Degenerate Disk Disease, Arthritis, Back Injury, Scoliosis, Chronic Back Pain Endocrine: No HEENT: No Cancer: No Psychosocial: Yes (EXTENSIVE PSYCH HISTORY) Anxiety, PTSD, Bipolar, Depression Integumentary: No Blood Disorders: No Adverse Reaction/Blood Tranf: No Family Medical History Family history: Hypertension (mother, MGM, and PGM) Heart disease (mother and father) History of - anemia (family Hx of blood transfusions) Infertile Kidney disease (MGM) No Pertinent Family Hx Physical Exam Vital Signs Vital Signs - First Documented 08/05/18 20:54 Temp 97.4 Pulse 75 Resp 20 B/P (MAP) 119/78 (92) Pulse Ox 99 O2 Delivery Room Air Capillary Refill : Height/Weight/BMI Height: 5'6.00" Weight: 135lbs. 0.0oz. [id number]; 20.8 BMI Method:Stated General Appearance: WD/WN, no apparent distress HEENT: PERRL/EOMI, normal ENT inspection Neck: non-tender, full range of motion Respiratory: no respiratory distress, no accessory muscle use Cardiovascular: regular rate, rhythm, no murmur Gastrointestinal: normal bowel sounds, soft, tenderness (LLQ) Extremities: normal range of motion, non-tender Neurologic/Psychiatric: alert, normal mood/affect, oriented x 3 Skin: normal color, warm/dry Progress/Results/Core Measures Results/Orders Lab Results Laboratory Tests Test 08/05/18 21:10 Range/Units White Blood Count 10.0 4.3-11.0 10^3/uL Red Blood Count 4.82 4.35-5.85 10^6/uL Hemoglobin 14.5 11.5-16.0 G/DL Hematocrit 42 35-52 % Mean Corpuscular Volume 88 80-99 FL Mean Corpuscular Hemoglobin 30 25-34 PG Mean Corpuscular Hemoglobin Concent 34 32-36 G/DL Red Cell Distribution Width 12.3 10.0-14.5 % Platelet Count 223 130-400 10^3/uL Mean Platelet Volume 10.6 H 7.4-10.4 FL Neutrophils (%) (Auto) 61 42-75 % Lymphocytes (%) (Auto) 27 12-44 % Monocytes (%) (Auto) 9 0-12 % Eosinophils (%) (Auto) 2 0-10 % Basophils (%) (Auto) 0 0-10 % Neutrophils # (Auto) 6.1 1.8-7.8 X 10^3 Lymphocytes # (Auto) 2.7 1.0-4.0 X 10^3 Monocytes # (Auto) 0.9 0.0-1.0 X 10^3 Eosinophils # (Auto) 0.2 0.0-0.3 10^3/uL Basophils # (Auto) 0.0 0.0-0.1 10^3/uL Urine Color YELLOW Urine Clarity CLEAR Urine pH 7 5-9 Urine Specific Joseph 1.015 L 1.016-1.022 Urine Protein NEGATIVE NEGATIVE Urine Glucose (UA) NEGATIVE NEGATIVE Urine Ketones NEGATIVE NEGATIVE Urine Nitrite NEGATIVE NEGATIVE Urine Bilirubin NEGATIVE NEGATIVE Urine Urobilinogen NORMAL NORMAL MG/DL Urine Leukocyte Esterase 1+ H NEGATIVE Urine RBC (Auto) NEGATIVE NEGATIVE Urine RBC 0-2 /HPF Urine WBC 0-2 /HPF Urine Squamous Epithelial Cells 0-2 /HPF Urine Renal Epithelial Cells NONE /HPF Urine Crystals PRESENT H /LPF Urine Amorphous Sediment MOD [place] URATES H /LPF Urine Bacteria FEW H /HPF Urine Casts NONE /LPF Urine Mucus MODERATE H /LPF Urine Culture Indicated NO Sodium Level 141 135-145 MMOL/L Potassium Level 3.9 3.6-5.0 MMOL/L Chloride Level 107 98-107 MMOL/L Carbon Dioxide Level 24 21-32 MMOL/L Anion Gap 10 5-14 MMOL/L Blood Urea Nitrogen 15 7-18 MG/DL Creatinine 0.78 0.60-1.30 MG/DL Estimat Glomerular Filtration Rate > 60 BUN/Creatinine Ratio 19 Glucose Level 90 70-105 MG/DL Calcium Level 9.6 8.5-10.1 MG/DL Corrected Calcium 8.5-10.1 MG/DL Total Bilirubin 0.2 0.1-1.0 MG/DL Aspartate Amino Transf (AST/SGOT) 11 5-34 U/L Alanine Aminotransferase (ALT/SGPT) 10 0-55 U/L Alkaline Phosphatase 53 40-136 U/L Total Protein 7.4 6.4-8.2 GM/DL Albumin 4.6 H 3.2-4.5 GM/DL My Orders Orders - ISMAEL SOL APRN Cbc With Automated Diff (08/05/18 20:56) Comprehensive Metabolic Panel (08/05/18 20:56) Ua Culture If Indicated (08/05/18 20:56) Iv Heplock-Insert (Order) (08/05/18 20:56) Ct Abdomen/Pelvis W (08/05/18 20:56) Ketorolac Injection (Toradol Injection) (08/05/18 21:00) Iohexol Injection (Omnipaque 350 Mg/Ml 1 (08/05/18 21:30) Ns (Ivpb) (Sodium Chloride 0.9%) (08/05/18 21:30) Rx-Hydrocodone/Apap 5-325 Mg (Rx-Vicodin (08/05/18 22:30) Medications Given in ED Current Medications Medications Dose Ordered Sig/Antonia Route Start Time Stop Time Status Last Admin Dose Admin Iohexol 100 ml ONCE ONCE IV 08/05/18 21:30 08/05/18 21:31 UNV 08/05/18 21:31 100 ML Ketorolac Tromethamine 30 mg ONCE ONCE IVP 08/05/18 21:00 08/05/18 21:01 DC 08/05/18 21:12 30 MG Sodium Chloride 80 ml ONCE ONCE IV 08/05/18 21:30 08/05/18 21:31 UNV 08/05/18 21:31 80 ML Vital Signs/I&O 08/05/18 20:54 Temp 97.4 Pulse 75 Resp 20 B/P (MAP) 119/78 (92) Pulse Ox 99 O2 Delivery Room Air Diagnostic Imaging Diagonstic Imaging: CT Comments NAME: LISETTE BILLS [facility] REC#: [id number] PT STATUS: REG ER : 1990 PHYSICIAN: ISMAEL SOL APRN ADMIT DATE: 08/05/18/ER Draft Date of Exam:08/05/18 CT ABDOMEN/PELVIS W PROCEDURE: CT abdomen and pelvis with contrast. TECHNIQUE: Multiple contiguous axial images were obtained through the abdomen and pelvis after administration of intravenous contrast. INDICATION: Abdominal pain. COMPARISON: Prior CT from 03/24/2016. FINDINGS: The lung bases are clear. The liver and gallbladder are unremarkable. The pancreas and spleen are unremarkable. No adrenal mass is identified. Kidneys are unremarkable. Aorta is non-aneurysmal. The small and large bowel loops are normal caliber. No obstruction is seen. There is no ascites. Bladder is unremarkable. There appear to be some inflammatory changes anterior to the left psoas muscle. Inflammatory changes surround some tubular structures at this location which may represent gonadal vasculature. There are some calcific densities near this location as well. No other abnormalities are seen. IMPRESSION: There appear to be inflammatory changes in the left retroperitoneum anterior to the left psoas muscle below the level of the kidneys. These inflammatory changes surround the gonadal vasculature. No definite filling defect is seen but the possibility of ovarian vein thrombophlebitis cannot be entirely excluded. No other significant abnormality is seen. Dictated on workstation # [id number] Dict: 08/05/182199 Trans: 08/05/182207 [facility] [id number] Interpreted by: BARBIE YUNG MD Electronically signed by: Departure Communication (Admissions) [id number] discussed the case with Dr. Kumar. He does not feel that this was related to gynecologic issue because he did a left salpingo-oophorectomy with in December of this year and since she does not have a left ovary the left ovarian vein should have sclerosed by now and would have no flow in it. 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 [id number]- her pain is much improved after 30 mg of IV Toradol. Impression Primary Impression: Left ovarian vein thrombophlebitis Disposition: HOME, SELF-CARE Condition: Stable Departure-Patient Inst. Decision time for Depature: 22:27 Referrals: [facility] [place]Family) Primary Care Physician Patient Instructions: Acute Abdomen (Belly Pain), Adult (DC) Add. Discharge Instructions: 1. Anti-inflammatories as directed in addition to pain control 2. Return to ER for any fevers, worsening symptoms. Call your regular physician tomorrow for follow-up within 48 hours. All discharge instructions reviewed with patient and/or family. Voiced understanding. Scripts Ibuprofen (Ibuprofen) 800 Mg Tablet 800 MG PO Q8H PRN for PAIN, #20 TAB Prov: ISMAEL SOL APRN 08/05/18 Hydrocodone/Acetaminophen ([place] 5-325 Tablet) 1 Each Tablet 1 EACH PO Q6H PRN for PAIN-MODERATE MDD 10, #10 TAB Prov: ISMAEL SOL APRN 08/05/18 Work/School Note: Work Release Form Date Seen in the Emergency Department: Aug 05, 2018 Return to Work: Aug 08, 2018 Copy Copies To 1: NICOLA MANUEL DO; AVINASH REDDING MD; JENNIFER KUMAR MD, PETER J APRN Aug 05, 2018 20:59
--- OUTSIDE RECORDS SUMMARY | 2018-08-05 21:07 | XMS REPORT | Continuity of Care Document ---
Author Author [facility] Address Unknown Phone Unavailable Allergies [...] Drug Allergy N/A N/A 05/09/2013 Yes Penicillins [id number] Drug Allergy Mild PT ABLE TO TAKE 03/26/2014 Yes Depakote 250 mg tablet,delayed release (DR/EC) Drug Allergy N/A N/A 12/18 Yes diclofenac [id number] Drug Allergy Unknown N/A 01/21/2015 Yes divalproex sodium [id number] Drug Allergy Unknown N/A 08/26/2015 Medications There is no data. Problems Date Dx Coded Attending Type Code Diagnosis Diagnosed By GERBER JONES, JENNIFER Altamirano Ot R10.2 PELVIC AND PERINEAL PAIN 06/20/2008 WOLF JAMA MD 296.90 Mood Disorder [...] Disorder 06/20/2008 296.90 Mood Disorder 06/20/2008 MANUEL DO NICOLA K 296.90 Mood Disorder 06/20/2008 JASON HUNTER APRN D 296.90 Mood Disorder 06/20/2008 WOLF JAMA MD 296.90 Mood Disorder 06/20/2008 MANUEL DO NICOLA K 296.90 Mood Disorder 06/20/2008 KELY FRIEDMAN DDS 296.90 Mood Disorder 06/20/2008 JASON HUNTER APRN 296.90 Mood Disorder 06/20/2008 JASON HUNTER APRN 296.90 Mood Disorder 06/20/2008 JASON HUNTER APRN 296.90 Mood Disorder 06/20/2008 WOLF JAMA MD 296.90 Mood Disorder 06/20/2008 ROEL SEASONAL TAX PREPARER, GODWIN 296.90 Mood Disorder 06/20/2008 MADL SEASONAL TAX PREPARER, FLO L 296.90 Mood Disorder 06/20/2008 ROEL SEASONAL TAX PREPARER, GODWIN 296.90 Mood Disorder 06/20/2008 MADL SEASONAL TAX PREPARER, FLO L 296.90 Mood Disorder 06/20/2008 ROEL SEASONAL TAX PREPARER, GODWIN 296.90 Mood Disorder 06/20/2008 ROEL SEASONAL TAX PREPARER, GODWIN 296.90 Mood Disorder 06/20/2008 MADL SEASONAL TAX PREPARER, FLO L 296.90 Mood Disorder 06/20/2008 MADL SEASONAL TAX PREPARER, FLO L 296.90 Mood Disorder 06/20/2008 ROEL SEASONAL TAX PREPARER, GODWIN 296.90 Mood Disorder 06/20/2008 SONNYKENJI MENG ELIAS A 296.90 Mood Disorder [facility]/20/2008 [facility] 296.90 Mood Disorder 06/20/2008 MADL SEASONAL TAX PREPARER, FLO L 296.90 Mood Disorder 06/20/2008 JOSE SILVERIO DDS 296.90 Mood Disorder 06/20/2008 ANGELA [facility], DEMOND R 296.90 Mood Disorder 06/20/2008 ANGELA [facility]SC[facility], DEMOND R 296.90 Mood Disorder 06/20/2008 ROEL SEASONAL TAX PREPARER, GODWIN 296.90 Mood Disorder 06/20/2008 MANUEL DO NICOLA K 296.90 Mood Disorder 06/20/2008 ROEL SEASONAL TAX PREPARER, GODWIN 296.90 Mood Disorder 06/20/2008 MICHAEL SEVILLA APRNETTE 296.90 Mood Disorder 10/03/2008 WOLF JAMA MD 465.9 Upper Respiratory Infection 10/03/2008 WOLF JAMA MD 465.9 Upper Respiratory Infection 10/03/2008 465.9 Upper Respiratory Infection 10/03/2008 NICOLA MANUEL DO K 465.9 Upper Respiratory Infection 10/03/2008 JASON SOLANO DO 465.9 Upper Respiratory Infection 10/03/2008 465.9 [...] DO K 465.9 Upper Respiratory Infection 10/03/2008 KELY FRIEDMAN DDS 465.9 Upper Respiratory Infection 10/03/2008 JASON HUNTER APRN 465.9 Upper Respiratory Infection 10/03/2008 JASON HUNTER APRN 465.9 Upper Respiratory Infection 10/03/2008 JASON HUNTER APRN 465.9 Upper Respiratory Infection 10/03/2008 WOLF JAMA MD 465.9 Upper Respiratory Infection 10/03/2008 ROEL MENG GODWIN 465.9 Upper Respiratory Infection 10/03/2008 EARNESTINE GONZALEZ APRNNYA L 465.9 Upper Respiratory Infection 10/03/2008 ROEL SEASONAL TAX PREPARER, GODWIN 465.9 Upper Respiratory Infection 10/03/2008 MADL TAQUERIA, FLO L 465.9 Upper Respiratory Infection 10/03/2008 ROEL MENG GODWIN 465.9 Upper Respiratory Infection 10/03/2008 ROEL SEASONAL TAX PREPARER, GODWIN 465.9 Upper Respiratory Infection 10/03/2008 MADL SEASONAL TAX PREPARER, FLO L 465.9 Upper Respiratory Infection 10/03/2008 MADL SEASONAL TAX PREPARER, FLO L 465.9 Upper Respiratory Infection 10/03/2008 ROEL SEASONAL TAX PREPARER, GODWIN 465.9 Upper Respiratory Infection 10/03/2008 SONNY SEASONAL TAX PREPARER, ELIAS A 465.9 Upper Respiratory Infection 10/03/2008 [facility], DEMOND R 465.9 Upper Respiratory Infection 10/03/2008 MADL SEASONAL TAX PREPARER, FLO L 465.9 Upper Respiratory Infection 10/03/2008 SILVERIO DDS, JOSE 465.9 Upper Respiratory Infection 10/03/2008 [facility], DEMOND R 465.9 Upper Respiratory Infection 10/03/2008 [facility], DEMOND R 465.9 Upper Respiratory Infection 10/03/2008 ROEL SEASONAL TAX PREPARER, GODWIN 465.9 Upper Respiratory Infection 10/03/2008 NICOLA MANUEL DO 465.9 Upper Respiratory Infection 10/03/2008 ROEL SEASONAL TAX PREPARER, GODWIN 465.9 Upper Respiratory Infection 10/03/2008 ROEL SEASONAL TAX PREPARER, GODWIN 465.9 Upper Respiratory Infection 11/27/2008 WOLF [...] HUNTER APRN V58.69 Medication High Risk 11/27/2008 EVITA JONES, WOLF V58.69 Medication High Risk 11/27/2008 NICOLA MANUEL DO V58.69 Medication High Risk 11/27/2008 IDALIA DDS, KELY Dickens V58.69 Medication High Risk 11/27/2008 JASON HUNTER APRN V58.69 Medication High Risk 11/27/2008 JASON HUNTER APRN V58.69 Medication High Risk 11/27/2008 JASON HUNTER APRN V58.69 Medication High Risk 11/27/2008 WOLF JAMA MD V58.69 Medication High Risk 11/27/2008 ROEL SEASONAL TAX PREPARER, GODWIN V58.69 Medication High Risk 11/27/2008 MADL SEASONAL TAX PREPARER, FLO L V58.69 Medication High Risk 11/27/2008 ROEL SEASONAL TAX PREPARER, GODWIN V58.69 Medication High Risk 11/27/2008 MADL SEASONAL TAX PREPARER, FLO L V58.69 Medication High Risk 11/27/2008 ROEL SEASONAL TAX PREPARER, GODWIN V58.69 Medication High Risk 11/27/2008 ROEL SEASONAL TAX PREPARER, GODWIN V58.69 Medication High Risk 11/27/2008 MADL SEASONAL TAX PREPARER, FLO L V58.69 Medication High Risk 11/27/2008 MADL SEASONAL TAX PREPARER, FLO L V58.69 Medication High Risk 11/27/2008 ROEL SEASONAL TAX PREPARER, GODWIN V58.69 Medication High Risk 11/27/2008 SONNY MENG ELIAS A V58.69 Medication High Risk 11/27/2008 [facility], DEMOND R V58.69 Medication High Risk 11/27/2008 MADL SEASONAL TAX PREPARER, FLO L V58.69 Medication High Risk 11/27/2008 SILVERIO DDS JOSE V58.69 Medication High Risk 11/27/2008 [facility], DEMOND R V58.69 Medication High Risk 11/27/2008 [facility], DEMOND R V58.69 Medication High Risk 11/27/2008 ROEL SEASONAL TAX PREPARER, GODWIN V58.69 Medication High Risk 11/27/2008 NICOLA MANUEL DO K V58.69 Medication High Risk 11/27/2008 ROEL SEASONAL TAX PREPARER, GODWIN V58.69 Medication High Risk 11/27/2008 ROELGODWIN VARGAS APRN V58.69 Medication High Risk 07/01/2009 WOLF JAMA [...] ANXIETY UNSPEC 07/01/2009 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 07/01/2009 MARAL MANUEL DOA K 296.32 MO DEPRESSIVE RECURRENT MODERATE 07/01/2009 NICOLA MANUEL DO K 300.00 AN ANXIETY UNSPEC 07/01/2009 MANUEL MARAL BLANTONA K 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 07/01/2009 JASON SOLANO [...] WOLF JAMA MD 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 07/01/2009 NICOLA MANUEL DO K 296.32 MO DEPRESSIVE RECURRENT MODERATE 07/01/2009 NICOLA MANUEL DO K 300.00 AN ANXIETY UNSPEC 07/01/2009 MARAL MANUEL DOA K 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 07/01/2009 WHITE ALICESKELY J 296.32 MO DEPRESSIVE RECURRENT MODERATE 07/01/2009 [...] JAMA MD 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 07/01/2009 ROEL SEASONAL TAX PREPARER, GODWIN 296.32 MO DEPRESSIVE RECURRENT MODERATE 07/01/2009 ROEL SEASONAL TAX PREPARER, GODWIN 300.00 AN ANXIETY UNSPEC 07/01/2009 ROEL SEASONAL TAX PREPARER, GODWIN 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 07/01/2009 MADL SEASONAL TAX PREPARER, FLO L 296.32 MO DEPRESSIVE RECURRENT MODERATE 07/01/2009 MADL SEASONAL TAX PREPARER, FLO L 300.00 AN ANXIETY UNSPEC 07/01/2009 MADL SEASONAL TAX PREPARER, FLO L 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 07/01/2009 ROEL SEASONAL TAX PREPARER, GODWIN 296.32 MO DEPRESSIVE RECURRENT MODERATE 07/01/2009 ROEL SEASONAL TAX PREPARER, GODWIN 300.00 AN ANXIETY UNSPEC 07/01/2009 ROEL SEASONAL TAX PREPARER, GODWIN 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 07/01/2009 MADL SEASONAL TAX PREPARER, FLO L 296.32 MO DEPRESSIVE RECURRENT MODERATE 07/01/2009 MADL SEASONAL TAX PREPARER, FLO L 300.00 AN ANXIETY UNSPEC 07/01/2009 MADL SEASONAL TAX PREPARER, FLO L 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 07/01/2009 ROEL SEASONAL TAX PREPARER, GODWIN 296.32 MO DEPRESSIVE RECURRENT MODERATE 07/01/2009 ROEL SEASONAL TAX PREPARER, GODWIN 300.00 AN ANXIETY UNSPEC 07/01/2009 ROEL SEASONAL TAX PREPARER, GODWIN 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 07/01/2009 ROEL SEASONAL TAX PREPARER, GODWIN 296.32 MO DEPRESSIVE RECURRENT MODERATE 07/01/2009 ROEL SEASONAL TAX PREPARER, GODWIN 300.00 AN ANXIETY UNSPEC 07/01/2009 ROEL SEASONAL TAX PREPARER, GODWIN 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 07/01/2009 MADL SEASONAL TAX PREPARER, FLO L 296.32 MO DEPRESSIVE RECURRENT MODERATE 07/01/2009 ROSITA GONZALEZ APRNA L 300.00 AN ANXIETY UNSPEC 07/01/2009 ROSITA GONZALEZ APRNA L 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 07/01/2009 BRYANL ROSITA MENGA L 296.32 MO DEPRESSIVE RECURRENT MODERATE 07/01/2009 BRYANL ROSITA MENGA L 300.00 AN ANXIETY UNSPEC 07/01/2009 ROSITA GONZALEZ APRNA L 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 07/01/2009 ROEL SEASONAL TAX PREPARER, GODWIN 296.32 MO DEPRESSIVE RECURRENT MODERATE 07/01/2009 ROEL SEASONAL TAX PREPARER, GODWIN 300.00 AN ANXIETY UNSPEC 07/01/2009 ROEL SEASONAL TAX PREPARER, GODWIN 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 07/01/2009 SONNY MENG, ELIAS A 296.32 MO DEPRESSIVE RECURRENT MODERATE 07/01/2009 SONNY MENG, ELIAS A 300.00 AN ANXIETY UNSPEC 07/01/2009 SONNY MENG, ELIAS A 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 07/01/2009 [facility], DEMOND R 296.32 MO DEPRESSIVE RECURRENT MODERATE 07/01/2009 [facility], DEMOND R 300.00 AN ANXIETY UNSPEC 07/01/2009 [facility], DEMOND R 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 07/01/2009 FLO GONZALEZ APRN L 296.32 MO DEPRESSIVE RECURRENT MODERATE 07/01/2009 FLO GONZALEZ APRN L 300.00 AN ANXIETY UNSPEC 07/01/2009 ROSITA GONZALEZ APRNA L 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 07/01/2009 SILVERIO DDS, JOSE 296.32 MO DEPRESSIVE RECURRENT MODERATE 07/01/2009 SILVERIO DDS, JOSE 300.00 AN ANXIETY UNSPEC 07/01/2009 SILVERIO DDS, JOSE 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 07/01/2009 [facility], DEMOND R 296.32 MO DEPRESSIVE RECURRENT MODERATE 07/01/2009 [facility], DEMOND R 300.00 AN ANXIETY UNSPEC 07/01/2009 [facility], DEMOND R 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 07/01/2009 [facility], DEMOND R 296.32 MO DEPRESSIVE RECURRENT MODERATE 07/01/2009 [facility], DEMOND R 300.00 AN ANXIETY UNSPEC 07/01/2009 [facility], DEMOND R 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 07/01/2009 ROEL SEASONAL TAX PREPARER, GODWIN 296.32 MO DEPRESSIVE RECURRENT MODERATE 07/01/2009 ROEL SEASONAL TAX PREPARER, GODWIN 300.00 AN ANXIETY UNSPEC 07/01/2009 ROEL SEASONAL TAX PREPARER, GODWIN 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 07/01/2009 MAR BLANTONMARALA K 296.32 MO DEPRESSIVE RECURRENT MODERATE 07/01/2009 MANUEL DOMARALA K 300.00 AN ANXIETY UNSPEC 07/01/2009 MANUEL DO NICOLA K 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 07/01/2009 ROEL SEASONAL TAX PREPARER, GODWIN 296.32 MO DEPRESSIVE RECURRENT MODERATE 07/01/2009 ROEL SEASONAL TAX PREPARER, GODWIN 300.00 AN ANXIETY UNSPEC 07/01/2009 ROEL SEASONAL TAX PREPARER, GODWIN 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 07/01/2009 ROEL SEASONAL TAX PREPARER, GODWIN 296.32 MO DEPRESSIVE RECURRENT MODERATE 07/01/2009 ROEL SEASONAL TAX PREPARER, GODWIN 300.00 AN ANXIETY UNSPEC 07/01/2009 ROEL SEASONAL TAX PREPARER, GODWIN 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 07/16/2009 WOLF JAMA [...] 300.01 AN PANIC DIS W/O AGORA 07/16/2009 MANUEL NICOLA BLANTON K 300.01 AN PANIC DIS W/O AGORA 07/16/2009 IDALIA DDS, KELY J 300.01 AN PANIC DIS W/O AGORA 07/16/2009 JASON HUNTER APRN 300.01 AN PANIC DIS W/O AGORA 07/16/2009 JASON HUNTER APRN 300.01 AN PANIC DIS W/O AGORA 07/16/2009 JASON HUNTER APRN 300.01 AN PANIC DIS W/O AGORA 07/16/2009 WOLF JAMA MD 300.01 AN PANIC DIS W/O AGORA 07/16/2009 ROELGODWIN VARGAS APRN 300.01 AN PANIC DIS W/O AGORA 07/16/2009 ROSITA GONZALEZ APRNA L 300.01 AN PANIC DIS W/O AGORA 07/16/2009 ROELMICHAEL AVRGAS APRNETTE 300.01 AN PANIC DIS W/O AGORA 07/16/2009 ROSITA GONZALEZ APRNA L 300.01 AN PANIC DIS W/O AGORA 07/16/2009 MICHAEL SEVILLA APRNETTE 300.01 AN PANIC DIS W/O AGORA 07/16/2009 ROELSAM MENG GODWIN 300.01 AN PANIC DIS W/O AGORA 07/16/2009 MADL TAQUERIA FLO L 300.01 AN PANIC DIS W/O AGORA 07/16/2009 MADL SEASONAL TAX PREPARER, FLO L 300.01 AN PANIC DIS W/O AGORA 07/16/2009 ROEL MENG GODWIN 300.01 AN PANIC DIS W/O AGORA 07/16/2009 SONNYCasimiro MENG ELIAS A 300.01 AN PANIC DIS W/O AGORA 07/16/2009 ANGELA [facility], DEMOND R 300.01 AN PANIC DIS W/O AGORA 07/16/2009 MADFLO Alfred APRN L 300.01 AN PANIC DIS W/O AGORA 07/16/2009 SILVERIO DDS, JOSE 300.01 AN PANIC DIS W/O AGORA 07/16/2009 [facility], DEMOND R 300.01 AN PANIC DIS W/O AGORA 07/16/2009 [facility], DEMOND R 300.01 AN PANIC DIS W/O AGORA 07/16/2009 ROEL SEASONAL TAX PREPARER, GODWIN 300.01 AN PANIC DIS W/O AGORA 07/16/2009 NICOLA MANUEL DO 300.01 AN PANIC DIS W/O AGORA 07/16/2009 ROEL SEASONAL TAX PREPARER, GODWIN 300.01 AN PANIC DIS W/O AGORA 07/16/2009 ROEL SEASONAL TAX PREPARER, GODWIN 300.01 AN PANIC DIS W/O AGORA [...] MANUEL DO 307.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 07/25/2009 IDALIA DDS, KELY Dickens 307.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 07/25/2009 GARTON SEASONAL TAX PREPARER, JASON D 307.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 07/25/2009 GARTON SEASONAL TAX PREPARER, JASON D 307.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 07/25/2009 GARTON SEASONAL TAX PREPARER, JASON D 307.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 07/25/2009 WOLF JAMA MD 307.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 07/25/2009 ROEL SEASONAL TAX PREPARER, GODWIN 307.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 07/25/2009 MADL SEASONAL TAX PREPARER, FLO L 307.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 07/25/2009 ROEL SEASONAL TAX PREPARER, GODWIN 307.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 07/25/2009 MADL SEASONAL TAX PREPARER, FLO L 307.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 07/25/2009 ROEL SEASONAL TAX PREPARER, GODWIN 307.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 07/25/2009 ROEL SEASONAL TAX PREPARER, GODWIN 307.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 07/25/2009 MADL SEASONAL TAX PREPARER, FLO L 307.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 07/25/2009 MADL SEASONAL TAX PREPARER, FLO L 307.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 07/25/2009 ROEL SEASONAL TAX PREPARER, GODWIN 307.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 07/25/2009 SONNY SEASONAL TAX PREPARER, ELIAS A 307.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 07/25/2009 [facility], DEMOND R 307.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 07/25/2009 MADL SEASONAL TAX PREPARER, FLO L 307.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 07/25/2009 NUSRAT JENKINSSJOSE 307.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 07/25/2009 [facility], DEMOND R 307.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 07/25/2009 [facility], DEMOND R 307.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 07/25/2009 ROEL SEASONAL TAX PREPARER, GODWIN 307.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 07/25/2009 NICOLA MANUEL DO 307.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 07/25/2009 ROEL SEASONAL TAX PREPARER, GODWIN 307.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 07/25/2009 ROEL SEASONAL TAX PREPARER, GODWIN 307.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 12/17/2009 WOLF JAMA MD 311 DEPRESSIVE DISORDER NOS 12/17/2009 WLOF JAMA MD 311 DEPRESSIVE DISORDER NOS 12/17/2009 311 DEPRESSIVE DISORDER NOS 12/17/2009 MAR BLANTON NICOLA K 311 DEPRESSIVE DISORDER NOS 12/17/2009 XIOMARA BLANTON JASON Mathew 311 DEPRESSIVE DISORDER NOS 12/17/2009 311 DEPRESSIVE DISORDER NOS 12/17/2009 311 DEPRESSIVE DISORDER NOS 12/17/2009 311 DEPRESSIVE DISORDER NOS 12/17/2009 311 DEPRESSIVE DISORDER NOS 12/17/2009 311 DEPRESSIVE DISORDER NOS 12/17/2009 311 DEPRESSIVE DISORDER NOS 12/17/2009 311 DEPRESSIVE DISORDER NOS 12/17/2009 311 DEPRESSIVE DISORDER NOS 12/17/2009 311 DEPRESSIVE DISORDER NOS 12/17/2009 311 DEPRESSIVE DISORDER NOS 12/17/2009 311 DEPRESSIVE DISORDER NOS 12/17/2009 MANUEL DO NICOLA K 311 DEPRESSIVE DISORDER NOS 12/17/2009 JASON HUNTER APRN 311 DEPRESSIVE DISORDER NOS 12/17/2009 WOLF JAMA MD 311 DEPRESSIVE DISORDER NOS 12/17/2009 MANUEL DO NICOLA K 311 DEPRESSIVE DISORDER NOS 12/17/2009 KELY FRIEDMAN DDS 311 DEPRESSIVE DISORDER NOS 12/17/2009 JASON HUNTER APRN 311 DEPRESSIVE DISORDER NOS 12/17/2009 JASON HUNTER APRN 311 DEPRESSIVE DISORDER NOS 12/17/2009 JASON HUNTER APRN 311 DEPRESSIVE DISORDER NOS 12/17/2009 WOLF JAMA MD 311 DEPRESSIVE DISORDER NOS 12/17/2009 ROEL SEASONAL TAX PREPARER, GODWIN 311 DEPRESSIVE DISORDER NOS 12/17/2009 MADL SEASONAL TAX PREPARER, FLO L 311 DEPRESSIVE DISORDER NOS 12/17/2009 ROEL SEASONAL TAX PREPARER, GODWIN 311 DEPRESSIVE DISORDER NOS 12/17/2009 MADL SEASONAL TAX PREPARER, FLO L 311 DEPRESSIVE DISORDER NOS 12/17/2009 ROEL SEASONAL TAX PREPARER, GODWIN 311 DEPRESSIVE DISORDER NOS 12/17/2009 ROEL SEASONAL TAX PREPARER, GODWIN 311 DEPRESSIVE DISORDER NOS 12/17/2009 MADL SEASONAL TAX PREPARER, FLO L 311 DEPRESSIVE DISORDER NOS 12/17/2009 MADL SEASONAL TAX PREPARER, FLO L 311 DEPRESSIVE DISORDER NOS 12/17/2009 ROEL SEASONAL TAX PREPARER, GODWIN 311 DEPRESSIVE DISORDER NOS 12/17/2009 SONNY SEASONAL TAX PREPARER, ELIAS A 311 DEPRESSIVE DISORDER NOS 12/17/2009 [facility], DEMOND R 311 DEPRESSIVE DISORDER NOS 12/17/2009 LISA SEASONAL TAX PREPARERFLO 311 DEPRESSIVE DISORDER NOS 12/17/2009 NUSRAT BAKER, JOSE 311 DEPRESSIVE DISORDER NOS 12/17/2009 [facility], DEMOND R 311 DEPRESSIVE DISORDER NOS 12/17/2009 [facility], DEMOND R 311 DEPRESSIVE DISORDER NOS 12/17/2009 ROEL SEASONAL TAX PREPARER, GODWIN 311 DEPRESSIVE DISORDER NOS 12/17/2009 NICOLA MANUEL DO 311 DEPRESSIVE DISORDER NOS 12/17/2009 ROEL SEASONAL TAX PREPARER, GODWIN 311 DEPRESSIVE DISORDER NOS 12/17/2009 ROEL SEASONAL TAX PREPARER, GODWIN 311 DEPRESSIVE DISORDER NOS 05/06/2010 Ot 620.2 05/06/2010 Ot 789.04 05/13/2010 EVITA JONES, WOLF V72.31 Angiography Nurse Exam, Routine 05/13/2010 WOLF JAMA MD V72.31 Angiography Nurse Exam, Routine 05/13/2010 V72.31 Angiography Nurse Exam, Routine 05/13/2010 NICOLA MANUEL DO V72.31 Angiography Nurse Exam, Routine 05/13/2010 JASON SOLANO DO V72.31 Angiography Nurse Exam, Routine 05/13/2010 V72.31 Angiography Nurse Exam, Routine 05/13/2010 V72.31 Angiography Nurse Exam, Routine 05/13/2010 V72.31 Angiography Nurse Exam, Routine 05/13/2010 V72.31 Angiography Nurse Exam, Routine 05/13/2010 V72.31 Angiography Nurse Exam, Routine 05/13/2010 V72.31 Angiography Nurse Exam, Routine 05/13/2010 V72.31 Angiography Nurse Exam, Routine 05/13/2010 V72.31 Angiography Nurse Exam, Routine 05/13/2010 V72.31 Angiography Nurse Exam, Routine 05/13/2010 V72.31 Angiography Nurse Exam, Routine 05/13/2010 V72.31 Angiography Nurse Exam, Routine 05/13/2010 NICOLA MANUEL DO V72.31 Angiography Nurse Exam, Routine 05/13/2010 JASON HUNTER APRN V72.31 Angiography Nurse Exam, Routine 05/13/2010 WOLF JAMA MD V72.31 Angiography Nurse Exam, Routine 05/13/2010 NICOLA MANUEL DO V72.31 Angiography Nurse Exam, Routine 05/13/2010 IDALIA DDS, KELY Dickens V72.31 Angiography Nurse Exam, Routine 05/13/2010 GARTON SEASONAL TAX PREPARER, JASON Steel V72.31 Angiography Nurse Exam, Routine 05/13/2010 GARTON SEASONAL TAX PREPARER, JASNO Steel V72.31 Angiography Nurse Exam, Routine 05/13/2010 GARTON SEASONAL TAX PREPARER, JASON Steel V72.31 Angiography Nurse Exam, Routine 05/13/2010 WOLF JAMA MD V72.31 Angiography Nurse Exam, Routine 05/13/2010 ROEL SEASONAL TAX PREPARER, GODWIN V72.31 Angiography Nurse Exam, Routine 05/13/2010 MADL SEASONAL TAX PREPARER, FLO L V72.31 Angiography Nurse Exam, Routine 05/13/2010 ROEL SEASONAL TAX PREPARER, GODWIN V72.31 Angiography Nurse Exam, Routine 05/13/2010 MADL SEASONAL TAX PREPARER, FLO L V72.31 Angiography Nurse Exam, Routine 05/13/2010 ROEL SEASONAL TAX PREPARER, GODWIN V72.31 Angiography Nurse Exam, Routine 05/13/2010 ROEL SEASONAL TAX PREPARER, GODWIN V72.31 Angiography Nurse Exam, Routine 05/13/2010 MADL SEASONAL TAX PREPARER, FLO L V72.31 Angiography Nurse Exam, Routine 05/13/2010 MADL SEASONAL TAX PREPARER, FLO L V72.31 Angiography Nurse Exam, Routine 05/13/2010 ROEL SEASONAL TAX PREPARER, GODWIN V72.31 Angiography Nurse Exam, Routine 05/13/2010 SONNY SEASONAL TAX PREPARER, ELIAS A V72.31 Angiography Nurse Exam, Routine 05/13/2010 [facility], DEMOND R V72.31 Angiography Nurse Exam, Routine 05/13/2010 MADL SEASONAL TAX PREPARER, FLO L V72.31 Angiography Nurse Exam, Routine 05/13/2010 NUSRAT JENKINSSJOSE V72.31 Angiography Nurse Exam, Routine 05/13/2010 [facility], DEMOND R V72.31 Angiography Nurse Exam, Routine 05/13/2010 [facility], DEMOND R V72.31 Angiography Nurse Exam, Routine 05/13/2010 ROEL SEASONAL TAX PREPARER, GODWIN V72.31 Angiography Nurse Exam, Routine 05/13/2010 NICOLA MANUEL DO K V72.31 Angiography Nurse Exam, Routine 05/13/2010 ROEL SEASONAL TAX PREPARER, GODWIN V72.31 Angiography Nurse Exam, Routine 05/13/2010 ROEL SEASONAL TAX PREPARER, GODWIN V72.31 Angiography Nurse Exam, Routine 05/26/2010 Ot 526.9 05/26/2010 Ot [...] MD 276.8 Hypopotassemia 09/29/2011 276.8 Hypopotassemia 09/29/2011 MANUEL DO, NICOLA K 276.8 Hypopotassemia 09/29/2011 JASON SOLANO DO 276.8 Hypopotassemia 09/29/2011 276.8 Hypopotassemia 09/29/2011 276.8 Hypopotassemia 09/29/2011 276.8 Hypopotassemia 09/29/2011 276.8 Hypopotassemia 09/29/2011 276.8 Hypopotassemia 09/29/2011 276.8 Hypopotassemia 09/29/2011 276.8 Hypopotassemia 09/29/2011 276.8 Hypopotassemia 09/29/2011 276.8 Hypopotassemia 09/29/2011 276.8 Hypopotassemia 09/29/2011 276.8 Hypopotassemia 09/29/2011 NICOLA MANUEL DO K 276.8 Hypopotassemia 09/29/2011 JASON HUNTER APRN 276.8 Hypopotassemia 09/29/2011 WOLF JAMA MD 276.8 Hypopotassemia 09/29/2011 NICOLA MANUEL DO K 276.8 Hypopotassemia 09/29/2011 KELY FRIEDMAN DDS 276.8 Hypopotassemia 09/29/2011 JASON HUNTER APRN 276.8 Hypopotassemia 09/29/2011 JASON HUNTER APRN D 276.8 Hypopotassemia 09/29/2011 JASON HUNTER APRN D 276.8 Hypopotassemia 09/29/2011 WOLF JAMA MD 276.8 Hypopotassemia 09/29/2011 ROEL MENG, GODWIN 276.8 Hypopotassemia 09/29/2011 LISA MENG, FLO L 276.8 Hypopotassemia 09/29/2011 ROEL SEASONAL TAX PREPARER, GODWIN 276.8 Hypopotassemia 09/29/2011 LISA MENG, FLO L 276.8 Hypopotassemia 09/29/2011 ROEL MENG, GODWIN 276.8 Hypopotassemia 09/29/2011 ROEL SE[employer]ONAL T[employer]PARER, GODWIN 276.8 Hypopotassemia 09/29/2011 LISA MENG, FLO L 276.8 Hypopotassemia 09/29/2011 LISA MENG, FLO L 276.8 Hypopotassemia 09/29/2011 ROEL SEASONAL TAX PREPARER, GODWIN 276.8 Hypopotassemia 09/29/2011 SONNY SEASONAL TAX PREPARER, ELIAS A 276.8 Hypopotassemia 09/29/2011 [facility], DEMOND R 276.8 Hypopotassemia 09/29/2011 LISA SEASONAL TAX PREPARER, FLO L 276.8 Hypopotassemia 09/29/2011 NUSRAT JENKINSS, JOSE 276.8 Hypopotassemia 09/29/2011 [facility], DEMOND R 276.8 Hypopotassemia 09/29/2011 [facility], DEMOND R 276.8 Hypopotassemia 09/29/2011 ROEL SE[employer]ER, GODWIN 276.8 Hypopotassemia 09/29/2011 NICOLA MANUEL DO 276.8 Hypopotassemia 09/29/2011 ROEL SE[employer]ONAL [employer]PARER, GODWIN 276.8 Hypopotassemia 09/29/2011 ROEL SE[employer]ONAL [employer]ER, GODWIN 276.8 Hypopotassemia 12/13/2011 WOLF JAMA MD [...] 526.9 Unspecified Disease Of The [place] 12/13/2011 IDALIA JENKINSS, KELY Dickens 526.9 Unspecified Disease Of The [place] 12/13/2011 GARTON SEASONAL TAX PREPARERJASON Kirkpatrick 526.9 Unspecified Disease Of The [place] 12/13/2011 JASON HUNTER APRN 526.9 Unspecified Disease Of The [place] 12/13/2011 JASON HUNTER APRN 526.9 Unspecified Disease Of The [place] 12/13/2011 WOLF JAMA MD 526.9 Unspecified Disease Of The [place] 12/13/2011 ROEL SE[employer]ONAL TAX [employer]PARER, GODWIN 526.9 Unspecified Disease Of The [place] 12/13/2011 MADL SEASONAL TAX PREPARER, FLO L 526.9 Unspecified Disease Of The [place] 12/13/2011 ROEL SEASONAL TAX [employer]PARER, GODWIN 526.9 Unspecified Disease Of The [place] 12/13/2011 MADL SEASONAL TAX PREPARER, FLO L 526.9 Unspecified Disease Of The [place] 12/13/2011 ROEL SEASONAL TAX PREPARER, GODWIN 526.9 Unspecified Disease Of The [place] 12/13/2011 ROEL SEASONAL TAX PREPARER, GODWIN 526.9 Unspecified Disease Of The [place] 12/13/2011 MADL SE[employer]AL [employer], FLO L 526.9 Unspecified Disease Of The [place] 12/13/2011 MADL SEASONAL TAX [employer]PARER, FLO L 526.9 Unspecified Disease Of The [place] 12/13/2011 ROEL SEASONAL TAX PREPARER, GODWIN 526.9 Unspecified Disease Of The [place] 12/13/2011 ELIAS DENNIS APRN A 526.9 Unspecified Disease Of The [place] 12/13/2011 [facility], DEMOND Fernando 526.9 Unspecified Disease Of The [place] 12/13/2011 MADL SEASONAL TAX [employer]PARER, FLO L 526.9 Unspecified Disease Of The [place]aws 12/13/2011 NUSRAT DDS, JOSE 526.9 Unspecified Disease Of The [place]aws 12/13/2011 [facility], DEMOND R 526.9 Unspecified Disease Of The Jaws 12/13/2011 [facility], DEMOND R 526.9 Unspecified Disease Of The Jaws 12/13/2011 [employer], GODWIN 526.9 Unspecified Disease Of The Jaws 12/13/2011 NICOLA MANUEL DO 526.9 Unspecified Disease Of The Jaws 12/13/2011 [employer]EL SE[employer], GODWIN 526.9 Unspecified Disease Of The Jaws 12/13/2011 ROEL SE[employer], GODWIN 526.9 Unspecified Disease Of The Jaws [...] V76.2 Cervical Cancer Screening (pap Smear) 12/29/2011 IDALIA JENKINSSKELY 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 12/29/2011 WHITE ALICESKELY J 427.89 Other Specified Cardiac Dysrhythmias 12/29/2011 WHITE DDSKELY J V25.9 Contraception Management 12/29/2011 KELY FRIEDMAN DDS V76.2 Cervical Cancer Screening (pap Smear) 12/29/2011 [...] V76.2 Cervical Cancer Screening (pap Smear) 12/29/2011 MICHAEL SEVILLA APRNETTE 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 12/29/2011 ROEL MENG GODWIN 427.89 Other Specified Cardiac Dysrhythmias 12/29/2011 ROEL MENG GODWIN V25.9 Contraception Management 12/29/2011 ROEL MENG GODWIN V76.2 Cervical Cancer Screening (pap Smear) 12/29/2011 LISA MENG FLO L 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 12/29/2011 MADTima MENG FLO L 427.89 Other Specified Cardiac Dysrhythmias 12/29/2011 MADL SEASONAL TAX PREPARER, FLO L V25.9 Contraception Management 12/29/2011 MADL SEASONAL TAX PREPARER, FLO L V76.2 Cervical Cancer Screening (pap Smear) 12/29/2011 ROEL SE[employer]PAR[employer], GODWIN 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 12/29/2011 ROEL SE[employer]ONAL T[employer] PREPARER, GODWIN 427.89 Other Specified Cardiac Dysrhythmias 12/29/2011 ROEL SEASONAL TAX PREPARER, GODWIN V25.9 Contraception Management 12/29/2011 ROEL SE[employer]ONAL TAX PREPARER, GODWIN V76.2 Cervical Cancer Screening (pap Smear) 12/29/2011 MADL SEASONAL T[employer] PREPARER, FLO L 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 12/29/2011 MADL SEASONAL TAX PREPARER, FLO L 427.89 Other Specified Cardiac Dysrhythmias 12/29/2011 MADL SEASONAL TAX PREPARER, FLO L V25.9 Contraception Management 12/29/2011 MADL SEASONAL TAX PREPARER, FLO L V76.2 Cervical Cancer Screening (pap Smear) 12/29/2011 ROEL SE[employer]PARER, GODWIN 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 12/29/2011 ROEL SE[employer]ONAL TAX PREPARER, GODWIN 427.89 Other Specified Cardiac Dysrhythmias 12/29/2011 ROEL SEASONAL TAX PREPARER, GODWIN V25.9 Contraception Management 12/29/2011 ROEL SEASONAL TAX PREPARER, GODWIN V76.2 Cervical Cancer Screening (pap Smear) 12/29/2011 ROEL SE[employer]PARER, GODWIN 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 12/29/2011 ROEL SEASONAL TAX PREPARER, GODWIN 427.89 Other Specified Cardiac Dysrhythmias 12/29/2011 ROEL SEASONAL TAX PREPARER, GODWIN V25.9 Contraception Management 12/29/2011 ROEL SEASONAL TAX PREPARER, GODWIN V76.2 Cervical Cancer Screening (pap Smear) 12/29/2011 MADL SEASONAL TAX PREPARER, FLO L 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 12/29/2011 MADL SEASONAL TAX PREPARER, FLO L 427.89 Other Specified Cardiac Dysrhythmias 12/29/2011 MADL SEASONAL TAX PREPARER, FLO L V25.9 Contraception Management 12/29/2011 MADL SEASONAL TAX PREPARER, FLO L V76.2 Cervical Cancer Screening (pap Smear) 12/29/2011 MADL SEASONAL TAX PREPARER, FLO L 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 12/29/2011 MADL SEASONAL TAX PREPARER, FLO L 427.89 Other Specified Cardiac Dysrhythmias 12/29/2011 MADL SEASONAL TAX PREPARER, FLO L V25.9 Contraception Management 12/29/2011 MADL SEASONAL TAX PREPARER, FLO L V76.2 Cervical Cancer Screening (pap Smear) 12/29/2011 MICHAEL SEVILLA APRNETTE 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 12/29/2011 ROEL SE[employer] PREPARER GODWIN 427.89 Other Specified Cardiac Dysrhythmias 12/29/2011 ROEL SE[employer]ONAL T[employer] PREPARER, GODWIN V25.9 Contraception Management 12/29/2011 ROEL SE[employer]PARER, GODWIN V76.2 Cervical Cancer Screening (pap Smear) 12/29/2011 SONNY APRN, ELIAS A 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 12/29/2011 SONNY SEASONAL TAX PREPARER, ELIAS A 427.89 Other Specified Cardiac Dysrhythmias 12/29/2011 SONNY SEASONAL TAX PREPARER, ELIAS A V25.9 Contraception Management 12/29/2011 SONNY SEASONAL TAX PREPARER, ELIAS A V76.2 Cervical Cancer Screening (pap Smear) 12/29/2011 [facility], DEMOND R 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 12/29/2011 [facility], DEMOND R 427.89 Other Specified Cardiac Dysrhythmias 12/29/2011 [facility], DEMOND R V25.9 Contraception Management 12/29/2011 [facility], DEMOND R V76.2 Cervical Cancer Screening (pap Smear) 12/29/2011 BRYANL SEASONAL TAX PREPARER, FLO L 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 12/29/2011 LISA MENG, FLO L 427.89 Other Specified Cardiac Dysrhythmias 12/29/2011 BRYANL SEASONAL TAX PREPARER, FLO L V25.9 Contraception Management 12/29/2011 BRYANL SEASONAL TAX PREPARER, FLO L V76.2 Cervical Cancer Screening (pap Smear) 12/29/2011 JOSE SILVERIO DDS 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 12/29/2011 NUSRAT JENKINSSJOSE 427.89 Other Specified Cardiac Dysrhythmias 12/29/2011 SILVERIO DDSJOSE V25.9 Contraception Management 12/29/2011 NUSRAT JENKINSS, JOSE V76.2 Cervical Cancer Screening (pap Smear) 12/29/2011 [facility], DEMOND R 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 12/29/2011 [facility], DEMOND R 427.89 Other Specified Cardiac Dysrhythmias 12/29/2011 [facility], DEMOND R V25.9 Contraception Management 12/29/2011 [facility], DEMOND R V76.2 Cervical Cancer Screening (pap Smear) 12/29/2011 [facility], DEMOND R 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 12/29/2011 [facility], DEMOND R 427.89 Other Specified Cardiac Dysrhythmias 12/29/2011 [facility], DEMOND R V25.9 Contraception Management 12/29/2011 [facility], DEMOND R V76.2 Cervical Cancer Screening (pap Smear) 12/29/2011 [employer] SE[employer], GODWIN 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 12/29/2011 ROEL SE[employer] T[employer] PREPARER, GODWIN 427.89 Other Specified Cardiac Dysrhythmias 12/29/2011 ROEL SEASONAL TAX PREPARER, GODWIN V25.9 Contraception Management 12/29/2011 ROEL SE[employer]ONAL T[employer] PREPARER, GODWIN V76.2 Cervical Cancer Screening (pap Smear) 12/29/2011 NICOLA MANUEL DO K 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 12/29/2011 NICOLA MANUEL DO K 427.89 Other Specified Cardiac Dysrhythmias 12/29/2011 NICOLA MANUEL DO K V25.9 Contraception Management 12/29/2011 NICOLA MANUEL DO K V76.2 Cervical Cancer Screening (pap Smear) 12/29/2011 [employer], GODWIN 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 12/29/2011 ROEL SEASONAL [employer]AX PREPARER, GODWIN 427.89 Other Specified Cardiac Dysrhythmias 12/29/2011 ROEL SEASONAL TAX PREPARER, GODWIN V25.9 Contraception Management 12/29/2011 ROEL SEASONAL TAX PREPARER, GODWIN V76.2 Cervical Cancer Screening (pap Smear) 12/29/2011 ROEL SE[employer]PARER, GODWIN 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 12/29/2011 ROEL SE[employer]ONAL [employer]AX [employer]PARER, GODWIN 427.89 Other Specified Cardiac Dysrhythmias 12/29/2011 ROEL SEASONAL TAX PREPARER, GODWIN V25.9 Contraception Management 12/29/2011 ROEL SE[employer]PARER, GODWIN V76.2 Cervical Cancer Screening (pap Smear) [...] DO 427.9 Arrhythmia, Cardiac (sinus) 01/25/2012 JASON OSLANO DO 786.50 Unspecified Chest Pain 01/25/2012 JASON [...] Squamous Intraepithelial Lesion ( lgsil) 01/25/2012 JASON HUNTER APRN D 427.9 Arrhythmia, [...] K 786.50 Unspecified Chest Pain 01/25/2012 MANUEL DO NICOLA K 795.03 Papanicolaou Smear Of Cervix [...] APRN D 786.50 Unspecified Chest Pain 01/25/2012 ASHLEY HUNTER APRNBETH D 795.03 Papanicolaou Smear Of Cervix With Low Grade Squamous Intraepithelial Lesion (lgsil) 01/25/2012 JASON HUNTER APRN D 427.9 Arrhythmia, Cardiac (sinus) 01/25/2012 JASON HUNTER APRN 786.50 Unspecified Chest Pain 01/25/2012 JASON HUNTER APRN 795.03 Papanicolaou Smear Of Cervix With Low Grade Squamous Intraepithelial Lesion (lgsil) 01/25/2012 WOLF JAMA MD 427.9 Arrhythmia, Cardiac (sinus) 01/25/2012 WOLF JAMA MD 786.50 Unspecified Chest Pain 01/25/2012 WOLF JAMA MD 795.03 Papanicolaou Smear Of Cervix With Low Grade Squamous Intraepithelial Lesion (lgsil) 01/25/2012 [employer]EL [employer], GODWIN 427.9 Arrhythmia, Cardiac (sinus) 01/25/2012 ROEL SE[employer]AL T[employer] PREPARER, GODWIN 786.50 Unspecified Chest Pain 01/25/2012 ROEL SE[employer]ONAL T[employer] PREPARER, GODWIN 795.03 Papanicolaou Smear Of Cervix With Low Grade Squamous Intraepithelial Lesion (lgsil) 01/25/2012 MADL SEASONAL TAX PREPARER, FLO L 427.9 Arrhythmia, Cardiac (sinus) 01/25/2012 MADL SEASONAL TAX PREPARER, FLO L 786.50 Unspecified Chest Pain 01/25/2012 MADL SEASONAL TAX PREPARER, FLO L 795.03 Papanicolaou Smear Of Cervix With Low Grade Squamous Intraepithelial Lesion (lgsil) 01/25/2012 ROEL SE[employer] PREPARER, GODWIN 427.9 Arrhythmia, Cardiac (sinus) 01/25/2012 ROEL SE[employer]ONAL TAX PREPARER, GODWIN 786.50 Unspecified Chest Pain 01/25/2012 ROEL SEASONAL TAX PREPARER, GOWDIN 795.03 Papanicolaou Smear Of Cervix With Low Grade Squamous Intraepithelial Lesion (lgsil) 01/25/2012 MADL SEASONAL TAX PREPARER, FLO L 427.9 Arrhythmia, Cardiac (sinus) 01/25/2012 MADL SEASONAL TAX PREPARER, FLO L 786.50 Unspecified Chest Pain 01/25/2012 MADL SEASONAL TAX PREPARER, FLO L 795.03 Papanicolaou Smear Of Cervix With Low Grade Squamous Intraepithelial Lesion (lgsil) 01/25/2012 RO[employer] SE[employer]PARER, GODWIN 427.9 Arrhythmia, Cardiac (sinus) 01/25/2012 ROEL SE[employer]AL TAX PREPARER, GODWIN 786.50 Unspecified Chest Pain 01/25/2012 ROEL SE[employer]ONAL TAX PREPARER, GODWIN 795.03 Papanicolaou Smear Of Cervix With Low Grade Squamous Intraepithelial Lesion (lgsil) 01/25/2012 ROEL SE[employer]AL [employer] PREPARER, GODWIN 427.9 Arrhythmia, Cardiac (sinus) 01/25/2012 ROEL SE[employer]ONAL TAX PREPARER, GODWIN 786.50 Unspecified Chest Pain 01/25/2012 ROEL SEASONAL TAX PREPARER, GODWIN 795.03 Papanicolaou Smear Of Cervix With Low Grade Squamous Intraepithelial Lesion (lgsil) 01/25/2012 MADL SEASONAL TAX PREPARER, FLO L 427.9 Arrhythmia, Cardiac (sinus) 01/25/2012 MADL SEASONAL TAX PREPARER, FLO L 786.50 Unspecified Chest Pain 01/25/2012 MADL SEASONAL TAX PREPARER, FLO L 795.03 Papanicolaou Smear Of Cervix With Low Grade Squamous Intraepithelial Lesion (lgsil) 01/25/2012 MADL SEASONAL TAX PREPARER, FLO L 427.9 Arrhythmia, Cardiac (sinus) 01/25/2012 MADL SEASONAL TAX PREPARER, FLO L 786.50 Unspecified Chest Pain 01/25/2012 MADL SEASONAL TAX PREPARER, FLO L 795.03 Papanicolaou Smear Of Cervix With Low Grade Squamous Intraepithelial Lesion (lgsil) 01/25/2012 ROEL SEASONAL TAX PREPARER, GODWIN 427.9 Arrhythmia, Cardiac (sinus) 01/25/2012 ROEL SE[employer]AL TAX PREPARER, GODWIN 786.50 Unspecified Chest Pain 01/25/2012 ROEL SE[employer]AL TAX PREPARER, GODWIN 795.03 Papanicolaou Smear Of Cervix With Low Grade Squamous Intraepithelial Lesion (lgsil) 01/25/2012 SONNY SEASONAL TAX PREPARER, ELIAS A 427.9 Arrhythmia, Cardiac (sinus) 01/25/2012 SONNY SEASONAL TAX PREPARER, ELIAS A 786.50 Unspecified Chest Pain 01/25/2012 SONNY SEASONAL TAX PREPARER, ELIAS A 795.03 Papanicolaou Smear Of Cervix With Low Grade Squamous Intraepithelial Lesion (lgsil) [facility] 427.9 Arrhythmia, Cardiac (sinus) 01/25/2012 [facility] DEMOND R 786.50 Unspecified Chest Pain 01/25/2012 [facility] DEMOND R 795.03 Papanicolaou Smear Of Cervix With Low Grade Squamous Intraepithelial Lesion (lgsil) 01/25/2012 MADL SEASONAL TAX PREPARER, FLO L 427.9 Arrhythmia, Cardiac (sinus) 01/25/2012 MADL SEASONAL TAX PREPARER, FLO L 786.50 Unspecified Chest Pain 01/25/2012 BRYANL SEASONAL TAX PREPARER, FLO L 795.03 Papanicolaou Smear Of Cervix With Low Grade Squamous Intraepithelial Lesion (lgsil) 01/25/2012 NUSRAT JENKINSSJOSE 427.9 Arrhythmia, Cardiac (sinus) 01/25/2012 SILVERIO DDS, JOSE 786.50 Unspecified Chest Pain 01/25/2012 SILVERIO DDS, JOSE 795.03 Papanicolaou Smear Of Cervix With Low Grade Squamous Intraepithelial Lesion (lgsil) 01/25/2012 [facility] DEMOND R 427.9 Arrhythmia, Cardiac (sinus) 01/25/2012 [facility], DEMOND R 786.50 Unspecified Chest Pain 01/25/2012 [facility], DEMOND R 795.03 Papanicolaou Smear Of Cervix With Low Grade Squamous Intraepithelial Lesion (lgsil) 01/25/2012 [facility] DEMODN R 427.9 Arrhythmia, Cardiac (sinus) 01/25/2012 [facility] DEMOND R 786.50 Unspecified Chest Pain 01/25/2012 [facility] DEMOND R 795.03 Papanicolaou Smear Of Cervix With Low Grade Squamous Intraepithelial Lesion (lgsil) 01/25/2012 ROEL SEASONAL TAX PREPARER, GODWIN 427.9 Arrhythmia, Cardiac (sinus) 01/25/2012 ROEL SEASONAL TAX PREPARER, GODWIN 786.50 Unspecified Chest Pain 01/25/2012 ROEL SEASONAL TAX PREPARER, GODWIN 795.03 Papanicolaou Smear Of Cervix With Low Grade Squamous Intraepithelial Lesion (lgsil) 01/25/2012 NICOLA MANUEL DO K 427.9 Arrhythmia, Cardiac (sinus) 01/25/2012 MAR BLANTON NICOLA K 786.50 Unspecified Chest Pain 01/25/2012 MAR BLANTON NICOLA K 795.03 Papanicolaou Smear Of Cervix With Low Grade Squamous Intraepithelial Lesion ( lgsil) 01/25/2012 ROEL SEASONAL TAX PREPARER, GODWIN 427.9 Arrhythmia, Cardiac (sinus) 01/25/2012 ROEL SEASONAL TAX PREPARER, GODWIN 786.50 Unspecified Chest Pain 01/25/2012 ROEL SEASONAL TAX PREPARER, GODWIN 795.03 Papanicolaou Smear Of Cervix With Low Grade Squamous Intraepithelial Lesion (lgsil) 01/25/2012 ROEL SE[employer]ONAL TAX PREPARER, GODWIN 427.9 Arrhythmia, Cardiac (sinus) 01/25/2012 GODWIN SEVILLA APRN 786.50 Unspecified Chest Pain 01/25/2012 GODWIN SEVILLA [...] Unspecified 06/25/2012 789.00 abdominal pain 06/25/2012 MANUEL DONICOLA K 724.5 Backache Unspecified 06/25/2012 MANUEL DOMARALA K 789.00 abdominal pain 06/25/2012 JASON HUNTER APRN 724.5 Backache Unspecified 06/25/2012 JASON HUNTER APRN 789.00 abdominal pain 06/25/2012 WOLF JAMA MD 724.5 Backache Unspecified 06/25/2012 WOLF JAMA MD 789.00 abdominal pain 06/25/2012 MANUEL DONICOLA K 724.5 Backache Unspecified 06/25/2012 MANUEL NICOLA BLANTON K 789.00 abdominal pain 06/25/2012 WHITE DDS, KELY Dickens 724.5 Backache Unspecified 06/25/2012 WHITE DDS, KELY [...] GODWIN SEVILLA APRN 724.5 Backache Unspecified 06/25/2012 GODWIN SEVILLA APRN 789.00 abdominal pain 06/25/2012 FLO GONZALEZ APRN L 724.5 Backache Unspecified 06/25/2012 FLO GONZALEZ APRN L 789.00 abdominal pain 06/25/2012 GODWIN SEVILLA APRN 724.5 Backache Unspecified 06/25/2012 ROEL SE[employer]ONAL TAX PREPARER, GODWIN 789.00 abdominal pain 06/25/2012 MADL SEASONAL TAX PREPARER, FLO L 724.5 Backache Unspecified 06/25/2012 MADL SEASONAL TAX PREPARER, FLO L 789.00 abdominal pain 06/25/2012 ROEL SEASONAL TAX PREPARER, GODWIN 724.5 Backache Unspecified 06/25/2012 ROEL SEASONAL TAX PREPARER, GODWIN 789.00 abdominal pain 06/25/2012 ROEL SEASONAL TAX PREPARER, GODWIN 724.5 Backache Unspecified 06/25/2012 ROEL SEASONAL TAX PREPARER, GODWIN 789.00 abdominal pain 06/25/2012 MADL SEASONAL TAX PREPARER, FLO L 724.5 Backache Unspecified 06/25/2012 MADL SEASONAL TAX PREPARER, FLO L 789.00 abdominal pain 06/25/2012 MADL SEASONAL TAX PREPARER, FLO L 724.5 Backache Unspecified 06/25/2012 MADL SEASONAL TAX PREPARER, FLO L 789.00 abdominal pain 06/25/2012 ROEL SEASONAL TAX PREPARER, GODWIN 724.5 Backache Unspecified 06/25/2012 ROEL SEASONAL TAX PREPARER, GODWIN 789.00 abdominal pain 06/25/2012 SONNY SEASONAL TAX PREPARER, ELIAS A 724.5 Backache Unspecified 06/25/2012 SONNY SEASONAL TAX PREPARER, ELIAS A 789.00 abdominal pain 06/25/2012 [facility], DEMOND R 724.5 Backache Unspecified 06/25/2012 [facility], DEMOND R 789.00 abdominal pain 06/25/2012 MADL SEASONAL TAX PREPARER, FLO L 724.5 Backache Unspecified 06/25/2012 MADL SEASONAL TAX PREPARER, FLO L 789.00 abdominal pain 06/25/2012 SILVERIO DDS, JOSE 724.5 Backache Unspecified 06/25/2012 SILVERIO DDS, JOSE 789.00 abdominal pain 06/25/2012 [facility], DEMOND R 724.5 Backache Unspecified 06/25/2012 [facility], DEMOND R 789.00 abdominal pain 06/25/2012 [facility], DEMOND R 724.5 Backache Unspecified 06/25/2012 [facility], DEMOND R 789.00 abdominal pain 06/25/2012 ROEL SEASONAL TAX PREPARER, GODWIN 724.5 Backache Unspecified 06/25/2012 ROEL SEASONAL TAX PREPARER, GODWIN 789.00 abdominal pain 06/25/2012 NICOLA MANUEL DO K 724.5 Backache Unspecified 06/25/2012 MANUEL DO, NICOLA K 789.00 abdominal pain 06/25/2012 ROEL SEASONAL TAX PREPARER, GODWIN 724.5 Backache Unspecified 06/25/2012 ROEL SEASONAL TAX PREPARER, GODWIN 789.00 abdominal pain 06/25/2012 ROEL SEASONAL TAX PREPARER, GODWIN 724.5 Backache Unspecified 06/25/2012 ROEL SEASONAL TAX PREPARER, GODWIN 789.00 abdominal pain 06/27/2012 EVITA JONES, WOLF 785.1 Palpitations 06/27/2012 EVITA JONES, WOLF 786.05 Shortness Of Breath 06/27/2012 WOLF JAMA MD 786.50 Chest Pain 06/27/2012 WOLF JAMA MD 785.1 Palpitations 06/27/2012 WOLF JAMA MD 786.05 Shortness Of Breath 06/27/2012 WOLF JAMA MD 786.50 Chest Pain 06/27/2012 785.1 Palpitations 06/27/2012 786.05 Shortness Of Breath 06/27/2012 786.50 Chest Pain 06/27/2012 NICOLA MANUEL DO K 785.1 Palpitations 06/27/2012 MARAL MANUEL DOA K 786.05 Shortness Of Breath 06/27/2012 MANUEL [...] DO, NICOLA K 786.50 Chest Pain 06/27/2012 WHITE KELY BAKER 785.1 Palpitations 06/27/2012 WHITE KELY BAKER 786.05 Shortness Of Breath 06/27/2012 WHITE DDS, KELY J 786.50 Chest Pain 06/27/2012 GARTON SEASONAL TAX PREPARER, JASON D 785.1 Palpitations 06/27/2012 GARTON SEASONAL TAX PREPARER JASON D 786.05 Shortness Of Breath 06/27/2012 GARTON SEASONAL TAX PREPARER, JASON D 786.50 Chest Pain 06/27/2012 GARTON SEASONAL TAX PREPARER JASON D 785.1 Palpitations 06/27/2012 GARTON SEASONAL TAX PREPARER JASON D 786.05 Shortness Of Breath 06/27/2012 GARTON SEASONAL TAX PREPARER JASON D 786.50 Chest Pain 06/27/2012 GARTON SEASONAL TAX PREPARER JASON D 785.1 Palpitations 06/27/2012 GARTON SEASONAL TAX PREPARERASHLEYJASON D 786.05 Shortness Of Breath 06/27/2012 BRIANTON SEASONAL TAX PREPARERAMAURY KirkpatrickJASON D 786.50 Chest Pain 06/27/2012 WOLF JAMA MD 785.1 Palpitations 06/27/2012 WOLF JAMA MD 786.05 Shortness Of Breath 06/27/2012 WOLF JAMA MD 786.50 Chest Pain 06/27/2012 ROEL SEASONAL TAX PREPARER, GODWIN 785.1 Palpitations 06/27/2012 ROEL SEASONAL TAX PREPARER, GODWIN 786.05 Shortness Of Breath 06/27/2012 ROEL SEASONAL TAX PREPARER, GODWIN 786.50 Chest Pain 06/27/2012 MADL SEASONAL TAX PREPARER, FLO L 785.1 Palpitations 06/27/2012 MADL SEASONAL TAX PREPARER, FLO L 786.05 Shortness Of Breath 06/27/2012 MADL SEASONAL TAX PREPARER, FLO L 786.50 Chest Pain 06/27/2012 ROEL SEASONAL TAX PREPARER, GODWIN 785.1 Palpitations 06/27/2012 ROEL SEASONAL TAX PREPARER, GODWIN 786.05 Shortness Of Breath 06/27/2012 ROEL SEASONAL TAX PREPARER, GODWIN 786.50 Chest Pain 06/27/2012 MADL SEASONAL TAX PREPARER, FLO L 785.1 Palpitations 06/27/2012 MADL SEASONAL TAX PREPARER, FLO L 786.05 Shortness Of Breath 06/27/2012 MADL SEASONAL TAX PREPARER, FLO L 786.50 Chest Pain 06/27/2012 ROEL SEASONAL TAX PREPARER, GODWIN 785.1 Palpitations 06/27/2012 ROEL SEASONAL TAX PREPARER, GODWIN 786.05 Shortness Of Breath 06/27/2012 ROEL SEASONAL TAX PREPARER, GODWIN 786.50 Chest Pain 06/27/2012 ROEL SEASONAL TAX PREPARER, GODWIN 785.1 Palpitations 06/27/2012 ROEL SEASONAL TAX PREPARER, GODWIN 786.05 Shortness Of Breath 06/27/2012 ROEL SEASONAL TAX PREPARER, GODWIN 786.50 Chest Pain 06/27/2012 MADL SEASONAL TAX PREPARER, FLO L 785.1 Palpitations 06/27/2012 MADL SEASONAL TAX PREPARER, FLO L 786.05 Shortness Of Breath 06/27/2012 MADL SEASONAL TAX PREPARER, FLO L 786.50 Chest Pain 06/27/2012 MADL SEASONAL TAX PREPARER, FLO L 785.1 Palpitations 06/27/2012 MADL SEASONAL TAX PREPARER, FLO L 786.05 Shortness Of Breath 06/27/2012 MADL SEASONAL TAX PREPARER, FLO L 786.50 Chest Pain 06/27/2012 ROEL SEASONAL TAX PREPARER, GODWIN 785.1 Palpitations 06/27/2012 ROEL SEASONAL TAX PREPARER, GODWIN 786.05 Shortness Of Breath 06/27/2012 ROEL SEASONAL TAX PREPARER, GODWIN 786.50 Chest Pain 06/27/2012 SONNY SEASONAL TAX PREPARER, ELIAS A 785.1 Palpitations 06/27/2012 SONNY SEASONAL TAX PREPARER, ELIAS A 786.05 Shortness Of Breath 06/27/2012 SONNY SEASONAL TAX PREPARER, ELIAS A 786.50 Chest Pain 06/27/2012 [facility], DEMOND R 785.1 Palpitations 06/27/2012 [facility], DEMOND R 786.05 Shortness Of Breath 06/27/2012 [facility], DEMOND R 786.50 Chest Pain 06/27/2012 MADL SEASONAL TAX PREPARER, FLO L 785.1 Palpitations 06/27/2012 MADL SEASONAL TAX PREPARER, LFO L 786.05 Shortness Of Breath 06/27/2012 MADL SEASONAL TAX PREPARER, FLO L 786.50 Chest Pain 06/27/2012 SILVERIO DDS, JOSE 785.1 Palpitations 06/27/2012 SILVERIO DDS JOSE 786.05 Shortness Of Breath 06/27/2012 SILVERIO DDS, JOSE 786.50 Chest Pain 06/27/2012 [facility]GELA [facility]SCS, DEMOND R 785.1 Palpitations 06/27/2012 ANGELA LSCS, DEMOND R 786.05 Shortness Of Breath 06/27/2012 ANGELA LSCS, DEMOND R 786.50 Chest Pain 06/27/2012 ANGELA LSCS, DEMOND R 785.1 Palpitations 06/27/2012 ANGELA LSCS, DEMOND R 786.05 Shortness Of Breath 06/27/2012 ANGELA LSCS, DEMOND R 786.50 Chest Pain 06/27/2012 ROEL SEASONAL TAX PREPARER, GODWIN 785.1 Palpitations 06/27/2012 ROEL SEASONAL TAX PREPARER, GODWIN 786.05 Shortness Of Breath 06/27/2012 ROEL SE[employer]ONAL TAX PREPARER, GODWIN 786.50 Chest Pain 06/27/2012 MANUEL DO, NICOLA K 785.1 Palpitations 06/27/2012 MANUEL DO, NICOLA K 786.05 Shortness Of Breath 06/27/2012 MANUEL DO, NICOLA K 786.50 Chest Pain 06/27/2012 ROEL SEASONAL TAX PREPARER, GODWIN 785.1 Palpitations 06/27/2012 ROEL SEASONAL TAX PREPARER, GODWIN 786.05 Shortness Of Breath 06/27/2012 ROEL SE[employer]AL TAX PREPARER, GODWIN 786.50 Chest Pain 06/27/2012 ROEL SE[employer]ONAL TAX PREPARER, GODWIN 785.1 Palpitations 06/27/2012 ROEL SE[employer]AL [employer] PREPARER, GODWIN 786.05 Shortness Of Breath 06/27/2012 ROEL SE[employer]PARER, GODWIN 786.50 Chest Pain 08/07/2012 WOLF JAMA [...] DO, NICOLA K 625.9 Pelvic Pain 08/07/2012 MAR DO NICOLA K V05.3 Hep B (adult) Dx 08/07/2012 MAR BLANTON NICOLA K V76.2 Cervical Cancer Screening (pap Smear) 08/07/2012 JASON SOLANO DO F 617.9 ENDOMETRIOSIS SITE UNSPECIFIED 08/07/2012 XIOMAAR BLANTON JASON F 625.9 Pelvic Pain 08/07/2012 JASON SOLANO [...] Cervical Cancer Screening (pap Smear) 08/07/2012 MANUEL DO, NICOLA K 617.9 ENDOMETRIOSIS SITE UNSPECIFIED 08/07/2012 [...] Cervical Cancer Screening (pap Smear) 08/07/2012 ROEL SE[employer]ONAL TAX PREPARER, GODWIN 617.9 ENDOMETRIOSIS SITE UNSPECIFIED 08/07/2012 ROEL SEASONAL TAX PREPARER, GODWIN 625.9 Pelvic Pain 08/07/2012 ROEL SEASONAL TAX PREPARER, GODWIN V05.3 Hep B (adult) Dx 08/07/2012 ROEL SEASONAL TAX PREPARER, GODWIN V76.2 Cervical Cancer Screening (pap Smear) 08/07/2012 MADL SEASONAL TAX PREPARER, FLO L 617.9 ENDOMETRIOSIS SITE UNSPECIFIED 08/07/2012 MADL SEASONAL TAX PREPARER, FLO L 625.9 Pelvic Pain 08/07/2012 MADL SEASONAL TAX PREPARER, FLO L V05.3 Hep B (adult) Dx 08/07/2012 MADL SEASONAL TAX PREPARER, FLO L V76.2 Cervical Cancer Screening (pap Smear) 08/07/2012 ROEL SEASONAL TAX PREPARER, GODWIN 617.9 ENDOMETRIOSIS SITE UNSPECIFIED 08/07/2012 ROEL SEASONAL TAX PREPARER, GODWIN 625.9 Pelvic Pain 08/07/2012 ROEL SEASONAL TAX PREPARER, GODWIN V05.3 Hep B (adult) Dx 08/07/2012 ROEL SEASONAL TAX PREPARER, GODWIN V76.2 Cervical Cancer Screening (pap Smear) 08/07/2012 MADL SEASONAL TAX PREPARER, FLO L 617.9 ENDOMETRIOSIS SITE UNSPECIFIED 08/07/2012 MADL SEASONAL TAX PREPARER, FLO L 625.9 Pelvic Pain 08/07/2012 MADL SEASONAL TAX PREPARER, FLO L V05.3 Hep B (adult) Dx 08/07/2012 MADL SEASONAL TAX PREPARER, FLO L V76.2 Cervical Cancer Screening (pap Smear) 08/07/2012 ROEL SEASONAL TAX PREPARER, GODWIN 617.9 ENDOMETRIOSIS SITE UNSPECIFIED 08/07/2012 ROEL SEASONAL TAX PREPARER, GODWIN 625.9 Pelvic Pain 08/07/2012 ROEL SEASONAL TAX PREPARER, GODWIN V05.3 Hep B (adult) Dx 08/07/2012 ROEL SEASONAL TAX PREPARER, GODWIN V76.2 Cervical Cancer Screening (pap Smear) 08/07/2012 ROEL SEASONAL TAX PREPARER, GODWIN 617.9 ENDOMETRIOSIS SITE UNSPECIFIED 08/07/2012 ROEL SEASONAL TAX PREPARER, GODWIN 625.9 Pelvic Pain 08/07/2012 ROEL SEASONAL TAX PREPARER, GODWIN V05.3 Hep B (adult) Dx 08/07/2012 ROEL SEASONAL TAX PREPARER, GODWIN V76.2 Cervical Cancer Screening (pap Smear) 08/07/2012 MADL SEASONAL TAX PREPARER, FLO L 617.9 ENDOMETRIOSIS SITE UNSPECIFIED 08/07/2012 MADL SEASONAL TAX PREPARER, FLO L 625.9 Pelvic Pain 08/07/2012 MADL SEASONAL TAX PREPARER, FLO L V05.3 Hep B (adult) Dx 08/07/2012 MADL SEASONAL TAX PREPARER, FLO L V76.2 Cervical Cancer Screening (pap Smear) 08/07/2012 MADL SE[employer]ONAL TAX PREPARER, FLO L 617.9 ENDOMETRIOSIS SITE UNSPECIFIED 08/07/2012 MADL SEASONAL TAX PREPARER, FLO L 625.9 Pelvic Pain 08/07/2012 MADL SEASONAL TAX PREPARER, FLO L V05.3 Hep B (adult) Dx 08/07/2012 MADL SEASONAL TAX PREPARER, FLO L V76.2 Cervical Cancer Screening (pap Smear) 08/07/2012 ROEL SEASONAL TAX PREPARER, GODWIN 617.9 ENDOMETRIOSIS SITE UNSPECIFIED 08/07/2012 ROEL SEASONAL TAX PREPARER, GODWIN 625.9 Pelvic Pain 08/07/2012 ROEL SEASONAL TAX PREPARER, GODWIN V05.3 Hep B (adult) Dx 08/07/2012 ROEL SEASONAL TAX PREPARER, GODWIN V76.2 Cervical Cancer Screening (pap Smear) 08/07/2012 SONNY SEASONAL TAX PREPARER, ELIAS A 617.9 ENDOMETRIOSIS SITE UNSPECIFIED 08/07/2012 SONNY SEASONAL TAX PREPARER, ELIAS A 625.9 Pelvic Pain 08/07/2012 SONNY SEASONAL TAX PREPARER, ELIAS A V05.3 Hep B (adult) Dx 08/07/2012 SONNY SEASONAL TAX PREPARER, ELIAS A V76.2 Cervical Cancer Screening (pap Smear) 08/07/2012 [facility], DEMOND R 617.9 ENDOMETRIOSIS SITE UNSPECIFIED 08/07/2012 [facility], DEMOND R 625.9 Pelvic Pain 08/07/2012 [facility], DEMOND R V05.3 Hep B (adult) Dx 08/07/2012 [facility], DEMOND R V76.2 Cervical Cancer Screening (pap Smear) 08/07/2012 MADL SEASONAL TAX PREPARER, FLO L 617.9 ENDOMETRIOSIS SITE UNSPECIFIED 08/07/2012 MADL SEASONAL TAX PREPARER, FLO L 625.9 Pelvic Pain 08/07/2012 MADL SEASONAL TAX PREPARER, FLO L V05.3 Hep B (adult) Dx 08/07/2012 MADL SEASONAL TAX PREPARER, FLO L V76.2 Cervical Cancer Screening (pap Smear) 08/07/2012 SILVERIO DDS, JOSE 617.9 ENDOMETRIOSIS SITE UNSPECIFIED 08/07/2012 SILVERIO DDS, JOSE 625.9 Pelvic Pain 08/07/2012 SILVERIO DDS, JOSE V05.3 Hep B (adult) Dx 08/07/2012 SILVERIO DDS, JOSE V76.2 Cervical Cancer Screening (pap Smear) 08/07/2012 [facility], DEMOND R 617.9 ENDOMETRIOSIS SITE UNSPECIFIED 08/07/2012 [facility] 625.9 Pelvic Pain 08/07/2012 [facility], DEMOND R V05.3 Hep B (adult) Dx 08/07/2012 [facility], DEMOND R V76.2 Cervical Cancer Screening (pap Smear) 08/07/2012 [facility] DEMOND R 617.9 ENDOMETRIOSIS SITE UNSPECIFIED 08/07/2012 [facility], DEMOND R 625.9 Pelvic Pain 08/07/2012 [facility], DEMOND R V05.3 Hep B (adult) Dx 08/07/2012 [facility], DEMOND R V76.2 Cervical Cancer Screening (pap Smear) 08/07/2012 ROEL SE[employer]PARER, GODWIN 617.9 ENDOMETRIOSIS SITE UNSPECIFIED 08/07/2012 ROEL SEASONAL TAX PREPARER, GODWIN 625.9 Pelvic Pain 08/07/2012 ROEL SEASONAL TAX PREPARER, GODWIN V05.3 Hep B (adult) Dx 08/07/2012 ROEL SEASONAL TAX PREPARER, GODWIN V76.2 Cervical Cancer Screening (pap Smear) 08/07/2012 MANUEL DO, NICOLA K 617.9 ENDOMETRIOSIS SITE UNSPECIFIED 08/07/2012 MANUEL DO NICOLA K 625.9 Pelvic Pain 08/07/2012 NICOLA MANUEL DO V05.3 Hep B (adult) Dx 08/07/2012 NICOLA MANUEL DO V76.2 Cervical Cancer Screening (pap Smear) 08/07/2012 ROEL SE[employer]ONAL TAX PREPARER, GODWIN 617.9 ENDOMETRIOSIS SITE UNSPECIFIED 08/07/2012 ROEL SEASONAL TAX PREPARER, GODWIN 625.9 Pelvic Pain 08/07/2012 ROEL SEASONAL TAX PREPARER, GODWIN V05.3 Hep B (adult) Dx 08/07/2012 ROEL SEASONAL TAX PREPARER, GODWIN V76.2 Cervical Cancer Screening (pap Smear) 08/07/2012 ROEL SEASONAL TAX PREPARER, GODWIN 617.9 ENDOMETRIOSIS SITE UNSPECIFIED 08/07/2012 ROEL SEASONAL TAX PREPARER, GODWIN 625.9 Pelvic Pain 08/07/2012 ROEL SEASONAL TAX PREPARER, GODWIN V05.3 Hep B (adult) Dx 08/07/2012 ROEL SEASONAL TAX PREPARER, GODWIN V76.2 Cervical Cancer Screening (pap Smear) [...] GASTROENTERITIS AND COLITIS 09/28/2012 IDALIA DDS, KELY J 558.9 OTHER AND UNSPECIFIED NONINFECTIOUS GASTROENTERITIS AND COLITIS 09/28/2012 JASON HUNTER APRN 558.9 OTHER AND UNSPECIFIED NONINFECTIOUS GASTROENTERITIS AND COLITIS 09/28/2012 JASON HUNTER APRN 558.9 OTHER AND UNSPECIFIED NONINFECTIOUS GASTROENTERITIS AND COLITIS 09/28/2012 JASON HUNTER APRN 558.9 OTHER AND UNSPECIFIED NONINFECTIOUS GASTROENTERITIS AND COLITIS 09/28/2012 WOLF JAMA MD 558.9 OTHER AND UNSPECIFIED NONINFECTIOUS GASTROENTERITIS AND COLITIS 09/28/2012 ROEL MENG GODWIN 558.9 OTHER AND UNSPECIFIED NONINFECTIOUS GASTROENTERITIS AND COLITIS 09/28/2012 FLO GONZALEZ APRN L 558.9 OTHER AND UNSPECIFIED NONINFECTIOUS GASTROENTERITIS AND COLITIS 09/28/2012 ROEL MENG GODWIN 558.9 OTHER AND UNSPECIFIED NONINFECTIOUS GASTROENTERITIS AND COLITIS 09/28/2012 ROSITA GONZALEZ APRNA L 558.9 OTHER AND UNSPECIFIED NONINFECTIOUS GASTROENTERITIS AND COLITIS 09/28/2012 ROEL SEASONAL TAX PREPARER, GODWIN 558.9 OTHER AND UNSPECIFIED NONINFECTIOUS GASTROENTERITIS AND COLITIS 09/28/2012 ROEL TAQUERIA GODWIN 558.9 OTHER AND UNSPECIFIED NONINFECTIOUS GASTROENTERITIS AND COLITIS 09/28/2012 ROSITA GONZALEZ APRNA L 558.9 OTHER AND UNSPECIFIED NONINFECTIOUS GASTROENTERITIS AND COLITIS 09/28/2012 ROSITA GONZALEZ APRNA L 558.9 OTHER AND UNSPECIFIED NONINFECTIOUS GASTROENTERITIS AND COLITIS 09/28/2012 ROEL MENG GODWIN 558.9 OTHER AND UNSPECIFIED NONINFECTIOUS GASTROENTERITIS AND COLITIS 09/28/2012 SONNY MENG, ELIAS Castañeda 558.9 OTHER AND UNSPECIFIED NONINFECTIOUS GASTROENTERITIS AND COLITIS 09/28/2012 [facility], DEMOND R 558.9 OTHER AND UNSPECIFIED NONINFECTIOUS GASTROENTERITIS AND COLITIS 09/28/2012 LISA MENG, FLO L 558.9 OTHER AND UNSPECIFIED NONINFECTIOUS GASTROENTERITIS AND COLITIS 09/28/2012 JOSE SILVERIO DDS 558.9 OTHER AND UNSPECIFIED NONINFECTIOUS GASTROENTERITIS AND COLITIS 09/28/2012 [facility], DEMOND R 558.9 OTHER AND UNSPECIFIED NONINFECTIOUS GASTROENTERITIS AND COLITIS 09/28/2012 [facility], DEMOND R 558.9 OTHER AND UNSPECIFIED NONINFECTIOUS GASTROENTERITIS AND COLITIS 09/28/2012 ROEL MENG GODWIN 558.9 OTHER AND UNSPECIFIED NONINFECTIOUS GASTROENTERITIS AND COLITIS 09/28/2012 NICOLA MANUEL DO 558.9 OTHER AND UNSPECIFIED NONINFECTIOUS GASTROENTERITIS AND COLITIS 09/28/2012 ROEL MENG GODWIN 558.9 OTHER AND UNSPECIFIED NONINFECTIOUS GASTROENTERITIS AND COLITIS 09/28/2012 ROEL MENG, GODWIN 558.9 OTHER AND UNSPECIFIED NONINFECTIOUS GASTROENTERITIS AND COLITIS 11/29/2012 626.0 AMENORRHEA 11/29/2012 NCIOLA MANUEL DO 626.0 AMENORRHEA 11/29/2012 JASON SOLANO DO 626.0 AMENORRHEA 11/29/2012 626.0 AMENORRHEA 11/29/2012 626.0 AMENORRHEA 11/29/2012 626.0 AMENORRHEA 11/29/2012 626.0 AMENORRHEA 11/29/2012 626.0 AMENORRHEA 11/29/2012 626.0 AMENORRHEA 11/29/2012 626.0 AMENORRHEA 11/29/2012 626.0 AMENORRHEA 11/29/2012 626.0 AMENORRHEA 11/29/2012 626.0 AMENORRHEA 11/29/2012 626.0 AMENORRHEA 11/29/2012 NICOLA MANUEL DO 626.0 AMENORRHEA 11/29/2012 JASON HUNTER APRN 626.0 AMENORRHEA 11/29/2012 WOLF JAMA MD 626.0 AMENORRHEA 11/29/2012 MANUEL DO, NICOLA K 626.0 AMENORRHEA 11/29/2012 IDALIA JENKINSS, KELY Dickens 626.0 AMENORRHEA 11/29/2012 JASON HUNTER APRN 626.0 AMENORRHEA 11/29/2012 JASON HUNTER APRN 626.0 AMENORRHEA 11/29/2012 JASON HUNTER APRN 626.0 AMENORRHEA 11/29/2012 WOLF JAMA MD 626.0 AMENORRHEA 11/29/2012 ROEL SEASONAL TAX PREPARER, GODWIN 626.0 AMENORRHEA 11/29/2012 MADL SEASONAL TAX PREPARER, FLO L 626.0 AMENORRHEA 11/29/2012 ROEL SEASONAL TAX PREPARER, GODWIN 626.0 AMENORRHEA 11/29/2012 MADL SEASONAL TAX PREPARER, FLO L 626.0 AMENORRHEA 11/29/2012 ROEL SEASONAL TAX PREPARER, GODWIN 626.0 AMENORRHEA 11/29/2012 ROEL SEASONAL TAX PREPARER, GODWIN 626.0 AMENORRHEA 11/29/2012 MADL SEASONAL TAX PREPARER, FLO L 626.0 AMENORRHEA 11/29/2012 MADL SEASONAL TAX PREPARER, FLO L 626.0 AMENORRHEA 11/29/2012 ROEL SEASONAL TAX PREPARER, GODWIN 626.0 AMENORRHEA 11/29/2012 SONNY SEASONAL TAX PREPARER, ELIAS A 626.0 AMENORRHEA 11/29/2012 [facility], DEMOND R 626.0 AMENORRHEA 11/29/2012 MADL SEASONAL TAX PREPARER, FLO L 626.0 AMENORRHEA 11/29/2012 JOSE SILVERIO DDS 626.0 AMENORRHEA 11/29/2012 [facility], DEMOND R 626.0 AMENORRHEA 11/29/2012 [facility], DEMOND R 626.0 AMENORRHEA 11/29/2012 ROEL SEASONAL TAX PREPARER, GODWIN 626.0 AMENORRHEA 11/29/2012 NICOLA MANUEL DO K 626.0 AMENORRHEA 11/29/2012 ROEL SEASONAL TAX PREPARER, GODWIN 626.0 AMENORRHEA 11/29/2012 ROEL SEASONAL TAX PREPARER, GODWIN 626.0 AMENORRHEA 12/08/2012 Ot 723.1 CERVICALGIA 12/08/2012 Ot 723.4 BRACHIAL NEURITIS NOS 12/11/2012 Ot 723.1 CERVICALGIA 12/11/2012 Ot 724.1 PAIN IN THORACIC SPINE 01/16/2013 MAR BLANTONNICOLA 305.1 TOBACCO ABUSE 01/16/2013 MAR BLANTONNICOLA 626.1 OLIGOMENORRHEA 01/16/2013 MAR BLANTONNICOLA V73.81 HPV SCREENING 01/16/2013 MAR BLANTONNICOLA V74.5 STD SCREEN 01/16/2013 MAR BLANTONNICOLA V76.2 CERVICAL CANCER SCREENING (PAP SMEAR) 01/16/2013 JASON SOLANO DO 305.1 TOBACCO ABUSE 01/16/2013 JASON SOLANO DO 626.1 OLIGOMENORRHEA 01/16/2013 XIOMARA BLANTON JASON Carmona V73.81 HPV SCREENING 01/16/2013 XIOMARA BLANTON JASON Carmona V74.5 STD SCREEN 01/16/2013 XIOMARA BLANTON JASON Carmona V76.2 CERVICAL CANCER SCREENING (PAP SMEAR) 01/16/2013 [...] V76.2 CERVICAL CANCER SCREENING (PAP SMEAR) 01/16/2013 WHITE DDS, KELY J 305.1 TOBACCO ABUSE 01/16/2013 WHITE DDS, KELY J 626.1 OLIGOMENORRHEA 01/16/2013 WHITE ALICESKELY J V73.81 HPV SCREENING 01/16/2013 WHITE DDS, KELY J V74.5 STD SCREEN 01/16/2013 WHITE DDSJASMINON J V76.2 CERVICAL CANCER SCREENING (PAP SMEAR) [...] GODWIN SEVILLA APRN 305.1 TOBACCO ABUSE 01/16/2013 GODWIN SEVILLA APRN 626.1 OLIGOMENORRHEA 01/16/2013 GODWIN SEVILLA APRN V73.81 HPV SCREENING 01/16/2013 GODWIN SEVILLA APRN V74.5 STD SCREEN 01/16/2013 GODWIN SEVILLA APRN V76.2 CERVICAL CANCER SCREENING (PAP SMEAR) 01/16/2013 FLO GONZALEZ APRN 305.1 TOBACCO ABUSE 01/16/2013 LISA MENG FLO L 626.1 OLIGOMENORRHEA 01/16/2013 LISA MENG FLO L V73.81 HPV SCREENING 01/16/2013 EARNESTINE GONZALEZ APRNNYA L V74.5 STD SCREEN 01/16/2013 ROSITA GONZALEZ APRNA L V76.2 CERVICAL CANCER SCREENING (PAP SMEAR) 01/16/2013 GODWIN SEVILLA APRN 305.1 TOBACCO ABUSE 01/16/2013 ROEL SEASONAL TAX PREPARER, GODWIN 626.1 OLIGOMENORRHEA 01/16/2013 ROEL SEASONAL TAX PREPARER, GODWIN V73.81 HPV SCREENING 01/16/2013 ROEL SEASONAL TAX PREPARER, GODWIN V74.5 STD SCREEN 01/16/2013 ROEL SEASONAL TAX PREPARER, GODWIN V76.2 CERVICAL CANCER SCREENING (PAP SMEAR) 01/16/2013 MADL SEASONAL TAX PREPARER, FLO L 305.1 TOBACCO ABUSE 01/16/2013 MAD SEASONAL TAX PREPARER, FLO L 626.1 OLIGOMENORRHEA 01/16/2013 MAD SEASONAL TAX PREPARER, FLO L V73.81 HPV SCREENING 01/16/2013 MADL SEASONAL TAX PREPARER, FLO L V74.5 STD SCREEN 01/16/2013 MAD SEASONAL TAX PREPARER, FLO L V76.2 CERVICAL CANCER SCREENING (PAP SMEAR) 01/16/2013 ROEL MENG GODWIN 305.1 TOBACCO ABUSE 01/16/2013 ROEL TAQUERIA GODWIN 626.1 OLIGOMENORRHEA 01/16/2013 ROEL MENG GODWIN V73.81 HPV SCREENING 01/16/2013 ROEL SEASONAL TAX PREPARER, GODWIN V74.5 STD SCREEN 01/16/2013 ROEL SEASONAL TAX PREPARER, GODWIN V76.2 CERVICAL CANCER SCREENING (PAP SMEAR) 01/16/2013 ROEL MENG GODWIN 305.1 TOBACCO ABUSE 01/16/2013 ROEL SEASONAL TAX PREPARER, GODWIN 626.1 OLIGOMENORRHEA 01/16/2013 ROEL SEASONAL TAX PREPARER, GODWIN V73.81 HPV SCREENING 01/16/2013 ROEL SEASONAL TAX PREPARER, GODWIN V74.5 STD SCREEN 01/16/2013 ROEL SEASONAL TAX PREPARER, GODWIN V76.2 CERVICAL CANCER SCREENING (PAP SMEAR) 01/16/2013 BRYAN SEASONAL TAX PREPARER, FLO L 305.1 TOBACCO ABUSE 01/16/2013 MADL SEASONAL TAX PREPARER, FLO L 626.1 OLIGOMENORRHEA 01/16/2013 MAD SEASONAL TAX PREPARER, FLO L V73.81 HPV SCREENING 01/16/2013 MAD SEASONAL TAX PREPARER, FLO L V74.5 STD SCREEN 01/16/2013 MADL SEASONAL TAX PREPARER, FLO L V76.2 CERVICAL CANCER SCREENING (PAP SMEAR) 01/16/2013 MADL SEASONAL TAX PREPARER, FLO L 305.1 TOBACCO ABUSE 01/16/2013 MADL SEASONAL TAX PREPARER, FLO L 626.1 OLIGOMENORRHEA 01/16/2013 MADL SEASONAL TAX PREPARER, FLO L V73.81 HPV SCREENING 01/16/2013 MADL SEASONAL TAX PREPARER, FLO L V74.5 STD SCREEN 01/16/2013 MADL SEASONAL TAX PREPARER, FLO L V76.2 CERVICAL CANCER SCREENING (PAP SMEAR) 01/16/2013 ROEL SEASONAL TAX PREPARER, GODWIN 305.1 TOBACCO ABUSE 01/16/2013 ROEL SEASONAL TAX PREPARER, GODWIN 626.1 OLIGOMENORRHEA 01/16/2013 ROEL SEASONAL TAX PREPARER, GODWIN V73.81 HPV SCREENING 01/16/2013 ROEL SEASONAL TAX PREPARER, GODWIN V74.5 STD SCREEN 01/16/2013 ROEL SEASONAL TAX PREPARER, GODWIN V76.2 CERVICAL CANCER SCREENING (PAP SMEAR) 01/16/2013 SONNY SEASONAL TAX PREPARER, ELIAS A 305.1 TOBACCO ABUSE 01/16/2013 SONNY SEASONAL TAX PREPARER, ELIAS A 626.1 OLIGOMENORRHEA 01/16/2013 SONNY SEASONAL TAX PREPARER, ELIAS A V73.81 HPV SCREENING 01/16/2013 SONNY SEASONAL TAX PREPARER, ELIAS A V74.5 STD SCREEN 01/16/2013 SONNY SEASONAL TAX PREPARER, ELIAS A V76.2 CERVICAL CANCER SCREENING (PAP SMEAR) 01/16/2013 [facility], DEMOND R 305.1 TOBACCO ABUSE 01/16/2013 [facility], DEMOND R 626.1 OLIGOMENORRHEA 01/16/2013 [facility], DEMOND R V73.81 HPV SCREENING 01/16/2013 [facility], DEMOND R V74.5 STD SCREEN 01/16/2013 [facility], DEMOND R V76.2 CERVICAL CANCER SCREENING (PAP SMEAR) 01/16/2013 MADL SEASONAL TAX PREPARER, FLO L 305.1 TOBACCO ABUSE 01/16/2013 MADL SEASONAL TAX PREPARER, FLO L 626.1 OLIGOMENORRHEA 01/16/2013 MADL SEASONAL TAX PREPARER, FLO L V73.81 HPV SCREENING 01/16/2013 MADL SEASONAL TAX PREPARER, FLO L V74.5 STD SCREEN 01/16/2013 MADL SEASONAL TAX PREPARER, FLO L V76.2 CERVICAL CANCER SCREENING (PAP SMEAR) 01/16/2013 SILVERIO DDS, JOSE 305.1 TOBACCO ABUSE 01/16/2013 SILVERIO DDS, JOSE 626.1 OLIGOMENORRHEA 01/16/2013 SILVERIO DDS, JOSE V73.81 HPV SCREENING 01/16/2013 SILVERIO DDS, JOSE V74.5 STD SCREEN 01/16/2013 SILVERIO DDS, JOSE V76.2 CERVICAL CANCER SCREENING (PAP SMEAR) 01/16/2013 [facility], DEMOND R 305.1 TOBACCO ABUSE 01/16/2013 [facility], DEMOND R 626.1 OLIGOMENORRHEA 01/16/2013 ANGELA [facility], DEMOND R V73.81 HPV SCREENING 01/16/2013 [facility], DEMOND R V74.5 STD SCREEN 01/16/2013 [facility], DEMOND R V76.2 CERVICAL CANCER SCREENING (PAP SMEAR) 01/16/2013 [facility], DEMOND R 305.1 TOBACCO ABUSE 01/16/2013 [facility], DEMOND R 626.1 OLIGOMENORRHEA 01/16/2013 [facility], DEMOND R V73.81 HPV SCREENING 01/16/2013 [facility], DEMOND R V74.5 STD SCREEN 01/16/2013 [facility], DEMOND R V76.2 CERVICAL CANCER SCREENING (PAP SMEAR) 01/16/2013 ROEL MENG GODWIN 305.1 TOBACCO ABUSE 01/16/2013 ROEL SEASONAL TAX PREPARER, GODWIN 626.1 OLIGOMENORRHEA 01/16/2013 ROEL SEASONAL TAX PREPARER, GODWIN V73.81 HPV SCREENING 01/16/2013 ROEL SEASONAL TAX PREPARER, GODWIN V74.5 STD SCREEN 01/16/2013 ROEL SEASONAL TAX PREPARER, GODWIN V76.2 CERVICAL CANCER SCREENING (PAP SMEAR) 01/16/2013 MANUEL DO NICOLA K 305.1 TOBACCO ABUSE 01/16/2013 MANUEL DO NICOLA K 626.1 OLIGOMENORRHEA 01/16/2013 MANUEL DO NICOLA K V73.81 HPV SCREENING 01/16/2013 MANUEL DO NICOLA K V74.5 STD SCREEN 01/16/2013 MANUEL DO NICOLA K V76.2 CERVICAL CANCER SCREENING (PAP SMEAR) 01/16/2013 ROEL SEASONAL TAX PREPARER, GODWIN 305.1 TOBACCO ABUSE 01/16/2013 ROEL SEASONAL TAX PREPARER, GODWIN 626.1 OLIGOMENORRHEA 01/16/2013 ROEL SEASONAL TAX PREPARER, GODWIN V73.81 HPV SCREENING 01/16/2013 ROEL SEASONAL TAX PREPARER, GODWIN V74.5 STD SCREEN 01/16/2013 ROEL SEASONAL TAX PREPARER, GODWIN V76.2 CERVICAL CANCER SCREENING (PAP SMEAR) 01/16/2013 ROEL SEASONAL TAX PREPARER, GODWIN 305.1 TOBACCO ABUSE 01/16/2013 ROEL SEASONAL TAX PREPARER, GODWIN 626.1 OLIGOMENORRHEA 01/16/2013 ROEL SEASONAL TAX PREPARER, GODWIN V73.81 HPV SCREENING 01/16/2013 ROEL SEASONAL TAX PREPARER, GODWIN V74.5 STD SCREEN 01/16/2013 ROEL SEASONAL TAX PREPARER, GODWIN V76.2 CERVICAL CANCER SCREENING (PAP SMEAR) [...] JAMA MD 296.90 MOOD DISORDER NOS 01/24/2013 GODWIN SEVILLA APRN 296.90 MOOD DISORDER NOS 01/24/2013 MADL SEASONAL TAX PREPARER, FLO L 296.90 MOOD DISORDER NOS 01/24/2013 ROEL SEASONAL TAX PREPARER, GODWIN 296.90 MOOD DISORDER NOS 01/24/2013 MADL SEASONAL TAX PREPARER, FLO L 296.90 MOOD DISORDER NOS 01/24/2013 ROEL SEASONAL TAX PREPARER, GODWIN 296.90 MOOD DISORDER NOS 01/24/2013 ROEL SEASONAL TAX PREPARER, GODWIN 296.90 MOOD DISORDER NOS 01/24/2013 MADL SEASONAL TAX PREPARER, FLO L 296.90 MOOD DISORDER NOS 01/24/2013 MADL SEASONAL TAX PREPARER, FLO L 296.90 MOOD DISORDER NOS 01/24/2013 ROEL SEASONAL TAX PREPARER, GODWIN 296.90 MOOD DISORDER NOS 01/24/2013 SONNY SEASONAL TAX PREPARER, ELIAS A 296.90 MOOD DISORDER NOS 01/24/2013 [facility], DEMOND R 296.90 MOOD DISORDER NOS 01/24/2013 MADL SEASONAL TAX PREPARER, FLO L 296.90 MOOD DISORDER NOS 01/24/2013 NUSRAT S JOSE 296.90 MOOD DISORDER NOS 01/24/2013 [facility], DEMOND R 296.90 MOOD DISORDER NOS 01/24/2013 [facility], DEMOND R 296.90 MOOD DISORDER NOS 01/24/2013 ROEL SEASONAL TAX PREPARER, GODWIN 296.90 MOOD DISORDER NOS 01/24/2013 NICOLA MANUEL DO 296.90 MOOD DISORDER NOS 01/24/2013 ROEL SEASONAL TAX PREPARER, GODWIN 296.90 MOOD DISORDER NOS 01/24/2013 ROEL SEASONAL TAX PREPARER, GODWIN 296.90 MOOD DISORDER NOS 02/13/2013 787.02 [...] JAMA MD 787.02 NAUSEA ALONE 02/13/2013 ROEL SEASONAL TAX PREPARER, GODWIN 787.02 NAUSEA ALONE 02/13/2013 MADL SEASONAL TAX PREPARER, FLO L 787.02 NAUSEA ALONE 02/13/2013 ROEL SEASONAL TAX PREPARER, GODWIN 787.02 NAUSEA ALONE 02/13/2013 MADTima SEASONAL TAX PREPARER, FLO L 787.02 NAUSEA ALONE 02/13/2013 ROEL SEASONAL TAX PREPARER, GODWIN 787.02 NAUSEA ALONE 02/13/2013 ROEL SEASONAL TAX PREPARER, OGDWIN 787.02 NAUSEA ALONE 02/13/2013 MADTima MENG FLO L 787.02 NAUSEA ALONE 02/13/2013 MADL SEASONAL TAX PREPARER, FLO L 787.02 NAUSEA ALONE 02/13/2013 ROEL SEASONAL TAX PREPARER, GODWIN 787.02 NAUSEA ALONE 02/13/2013 ELIAS DENNIS APRN 787.02 NAUSEA ALONE 02/13/2013 [facility], DEMOND R 787.02 NAUSEA ALONE 02/13/2013 MADTima MENG FLO L 787.02 NAUSEA ALONE 02/13/2013 JOSE SILVERIO DDS 787.02 NAUSEA ALONE 02/13/2013 [facility], DEMOND R 787.02 NAUSEA ALONE 02/13/2013 [facility], DEMOND R 787.02 NAUSEA ALONE 02/13/2013 ROEL SEASONAL TAX PREPARER, GODWIN 787.02 NAUSEA ALONE 02/13/2013 NICOLA MANUEL DO 787.02 NAUSEA ALONE 02/13/2013 ROEL SEASONAL TAX PREPARER, GODWIN 787.02 NAUSEA ALONE 02/13/2013 ROEL SEASONAL TAX PREPARER, GODWIN 787.02 NAUSEA ALONE 03/23/2013 309.81 AN [...] JAMA MD 309.81 AN PTSD 03/23/2013 ROEL SEASONAL TAX PREPARER, GODWIN 309.81 AN PTSD 03/23/2013 MADL SEASONAL TAX PREPARER, FLO L 309.81 AN PTSD 03/23/2013 ROEL SEASONAL TAX PREPARER, GODWIN 309.81 AN PTSD 03/23/2013 MADL SEASONAL TAX PREPARER, FLO L 309.81 AN PTSD 03/23/2013 ROEL SEASONAL TAX PREPARER, GODWIN 309.81 AN PTSD 03/23/2013 ROEL SEASONAL TAX PREPARER, GODWIN 309.81 AN PTSD 03/23/2013 MADL SEASONAL TAX PREPARER, FLO L 309.81 AN PTSD 03/23/2013 MADL SEASONAL TAX PREPARER, FLO L 309.81 AN PTSD 03/23/2013 ROEL SEASONAL TAX PREPARER, GODWIN 309.81 AN PTSD 03/23/2013 SONNY SEASONAL TAX PREPARER, ELIAS A 309.81 AN PTSD 03/23/2013 [facility] 309.[facility] PTSD 03/23/2013 MADL SEASONAL TAX PREPARER, FLO L 309.81 AN PTSD 03/23/2013 JOSE SILVERIO DDS 309.81 AN PTSD 03/23/2013 [facility] 309.[facility] PTSD 03/23/2013 [facility] 309.[facility] PTSD 03/23/2013 ROEL SEASONAL TAX PREPARER, GODWIN 309.81 AN PTSD 03/23/2013 NICOLA MANUEL [...] 724.2 LUMBAGO/ LOW BACK PAIN 04/26/2013 WOLF JMAA MD 724.2 LUMBAGO/ LOW BACK PAIN 04/26/2013 [...] APRN 724.2 LUMBAGO/ LOW BACK PAIN 04/26/2013 FLO GONZALEZ APRN 724.2 LUMBAGO/ LOW BACK PAIN 04/26/2013 GODWIN SEVILLA APRN 724.2 LUMBAGO/ LOW BACK PAIN 04/26/2013 ROSITA GONZALEZ APRNA L 724.2 LUMBAGO/ LOW BACK PAIN 04/26/2013 ROEL SE[employer]ON[employer] T[employer] PREPARER, GODWIN 724.2 LUMBAGO/ LOW BACK PAIN 04/26/2013 ROEL SEASONAL TAX PREPARER, GODWIN 724.2 LUMBAGO/ LOW BACK PAIN 04/26/2013 MADL SEASONAL TAX PREPARER, FLO L 724.2 LUMBAGO/ LOW BACK PAIN 04/26/2013 MADL SEASONAL TAX PREPARER, FLO L 724.2 LUMBAGO/ LOW BACK PAIN 04/26/2013 ROEL SEASONAL TAX PREPARER, GODWIN 724.2 LUMBAGO/ LOW BACK PAIN 04/26/2013 SONNY SEASONAL TAX PREPARER, ELIAS A 724.2 LUMBAGO/ LOW BACK PAIN 04/26/2013 [facility] R 724.2 LUMBAGO/ LOW BACK PAIN 04/26/2013 MADL SEASONAL TAX PREPARER, FLO L 724.2 LUMBAGO/ LOW BACK PAIN 04/26/2013 NUSRAT DDS, JOSE 724.2 LUMBAGO/ LOW BACK PAIN 04/26/2013 ANGELA LSCS, DEMOND R 724.2 LUMBAGO/ LOW BACK PAIN 04/26/2013 ANGELA LSCS, DEMOND R 724.2 LUMBAGO/ LOW BACK PAIN 04/26/2013 ROEL SEASONAL TAX PREPARER, GODWIN 724.2 LUMBAGO/ LOW BACK PAIN 04/26/2013 MANUEL DONICOLA K 724.2 LUMBAGO/ LOW BACK PAIN 04/26/2013 ROEL SEASONAL TAX PREPARER, GODWIN 724.2 LUMBAGO/ LOW BACK PAIN 04/26/2013 ROEL SEASONAL TAX PREPARER, GODWIN 724.2 LUMBAGO/ LOW BACK PAIN 04/29/2013 799.81 DECREASED LIBIDO 04/29/2013 V26.9 PROCREATIVE MANAGEMENT 04/29/2013 799.81 DECREASED LIBIDO 04/29/2013 V26.9 PROCREATIVE MANAGEMENT 04/29/2013 799.81 DECREASED LIBIDO 04/29/2013 V26.9 PROCREATIVE MANAGEMENT 04/29/2013 799.81 DECREASED LIBIDO 04/29/2013 V26.9 PROCREATIVE MANAGEMENT 04/29/2013 NICOLA MANUEL DO 799.81 DECREASED LIBIDO 04/29/2013 NICOLA MANUEL DO V26.9 PROCREATIVE MANAGEMENT 04/29/2013 JASON HUNTER APRN [...] GODWIN SEVILLA APRN V26.9 PROCREATIVE MANAGEMENT 04/29/2013 NARAYAN GONZALEZ APRNWNYA L 799.81 DECREASED LIBIDO 04/29/2013 LISA MENG FLO L V26.9 PROCREATIVE MANAGEMENT 04/29/2013 GODWIN SEVILLA APRN 799.81 DECREASED LIBIDO 04/29/2013 GODWIN SEVILLA APRN V26.9 PROCREATIVE MANAGEMENT 04/29/2013 BRYANL TAQEURIA FLO L 799.81 DECREASED LIBIDO 04/29/2013 BRYANL TAQUERIA FLO L V26.9 PROCREATIVE MANAGEMENT 04/29/2013 ROEL MENG GODWIN 799.81 DECREASED LIBIDO 04/29/2013 ROEL SEASONAL TAX PREPARER, GODWIN V26.9 PROCREATIVE MANAGEMENT 04/29/2013 ROEL SEASONAL TAX PREPARER, GODWIN 799.81 DECREASED LIBIDO 04/29/2013 ROEL SEASONAL TAX PREPARER, GODWIN V26.9 PROCREATIVE MANAGEMENT 04/29/2013 MADL SEASONAL TAX PREPARER, FLO L 799.81 DECREASED LIBIDO 04/29/2013 MADL SEASONAL TAX PREPARER, FLO L V26.9 PROCREATIVE MANAGEMENT 04/29/2013 MADL SEASONAL TAX PREPARER, FLO L 799.81 DECREASED LIBIDO 04/29/2013 MADL SEASONAL TAX PREPARER, FLO L V26.9 PROCREATIVE MANAGEMENT 04/29/2013 ROEL SEASONAL TAX PREPARER, GODWIN 799.81 DECREASED LIBIDO 04/29/2013 ROEL SEASONAL TAX PREPARER, GODWIN V26.9 PROCREATIVE MANAGEMENT 04/29/2013 SONNY SEASONAL TAX PREPARER, ELIAS A 799.81 DECREASED LIBIDO 04/29/2013 SONNY SEASONAL TAX PREPARER, ELIAS A V26.9 PROCREATIVE MANAGEMENT 04/29/2013 [facility], DEMOND R 799.81 DECREASED LIBIDO 04/29/2013 [facility], DEMOND R V26.9 PROCREATIVE MANAGEMENT 04/29/2013 MADL SEASONAL TAX PREPARER, FLO L 799.81 DECREASED LIBIDO 04/29/2013 MADL SEASONAL TAX PREPARER, FLO L V26.9 PROCREATIVE MANAGEMENT 04/29/2013 SILVERIO DDJOSE Shin 799.81 DECREASED LIBIDO 04/29/2013 SILVERIO JOSE BAKER V26.9 PROCREATIVE MANAGEMENT 04/29/2013 [facility], DEMOND R 799.81 DECREASED LIBIDO 04/29/2013 [facility], DEMOND R V26.9 PROCREATIVE MANAGEMENT 04/29/2013 [facility], DEMOND R 799.81 DECREASED LIBIDO 04/29/2013 [facility], DEMOND R V26.9 PROCREATIVE MANAGEMENT 04/29/2013 ROEL SEASONAL TAX PREPARER, GODWIN 799.81 DECREASED LIBIDO 04/29/2013 ROEL SEASONAL TAX PREPARER, GODWIN V26.9 PROCREATIVE MANAGEMENT 04/29/2013 MANUEL DOMARALA Jacinta 799.81 DECREASED LIBIDO 04/29/2013 MANUEL DO NICOLA K V26.9 PROCREATIVE MANAGEMENT 04/29/2013 ROEL SEASONAL TAX PREPARER, GODWIN 799.81 DECREASED LIBIDO 04/29/2013 ROEL SEASONAL TAX PREPARER, GODWIN V26.9 PROCREATIVE MANAGEMENT 04/29/2013 ROEL SEASONAL TAX PREPARER, GODWIN 799.81 DECREASED LIBIDO 04/29/2013 ROEL SEASONAL TAX PREPARER, GODWIN V26.9 PROCREATIVE MANAGEMENT 04/30/2013 MEJIA JONES, YAW R Ot 338.29 OTHER CHRONIC PAIN 04/30/2013 MEJIA JONES, YAW R Ot 724.2 LUMBAGO 05/17/2013 338.29 CHRONIC PAIN 05/17/2013 MANUEL NICOLA K 338.29 CHRONIC PAIN 05/17/2013 JASON HUNTER APRN 338.29 CHRONIC PAIN 05/17/2013 WOLF JAMA MD 338.29 CHRONIC PAIN 05/17/2013 MANUEL NICOLA K 338.29 CHRONIC PAIN 05/17/2013 IDALIA JENKINSS, KELY Dickens 338.29 CHRONIC PAIN 05/17/2013 JASON HUNTER APRN 338.29 CHRONIC PAIN 05/17/2013 JASON HUNTER APRN 338.29 CHRONIC PAIN 05/17/2013 JASON HUNTER APRN 338.29 CHRONIC PAIN 05/17/2013 WOLF JAMA MD 338.29 CHRONIC PAIN 05/17/2013 ROEL SEASONAL TAX PREPARER, GODWIN 338.29 CHRONIC PAIN 05/17/2013 MADL SEASONAL TAX PREPARER, FLO L 338.29 CHRONIC PAIN 05/17/2013 ROEL SEASONAL TAX PREPARER, GODWIN 338.29 CHRONIC PAIN 05/17/2013 MADL SEASONAL TAX PREPARER, FLO L 338.29 CHRONIC PAIN 05/17/2013 ROEL SEASONAL TAX PREPARER, GODWIN 338.29 CHRONIC PAIN 05/17/2013 ROEL SEASONAL TAX PREPARER GODWIN 338.29 CHRONIC PAIN 05/17/2013 MADL SEASONAL TAX PREPARER, FLO L 338.29 CHRONIC PAIN 05/17/2013 MADL SEASONAL TAX PREPARER, FLO L 338.29 CHRONIC PAIN 05/17/2013 ROEL SEASONAL TAX PREPARER, GODWIN 338.29 CHRONIC PAIN 05/17/2013 ELIAS DENNIS APRN 338.29 CHRONIC PAIN 05/17/2013 [facility], DEMOND R 338.29 CHRONIC PAIN 05/17/2013 MADL SE[employer]ONAL TAX PREPARER, FLO L 338.29 CHRONIC PAIN 05/17/2013 JOSE SILVERIO DDS 338.29 CHRONIC PAIN 05/17/2013 [facility], DEMOND R 338.29 CHRONIC PAIN 05/17/2013 [facility], DEMOND R 338.29 CHRONIC PAIN 05/17/2013 [employer]EL SE[employer]PARER, GODWIN 338.29 CHRONIC PAIN 05/17/2013 NICOLA MANUEL DO K 338.29 CHRONIC PAIN 05/17/2013 ROEL SE[employer]AL T[employer] PREPARER, GODWIN 338.29 CHRONIC PAIN 05/17/2013 ROEL SE[employer]ONAL TAX PREPARER, GODWIN 338.29 CHRONIC PAIN 06/22/2013 V70.5 HEALTH EXAMINATION OF DEFINED SUBPOPULATIONS 06/22/2013 NICOLA MANUEL DO V70.5 HEALTH EXAMINATION OF DEFINED SUBPOPULATIONS 06/22/2013 JASON HUNTER APRN V70.5 HEALTH EXAMINATION OF DEFINED SUBPOPULATIONS 06/22/2013 WOLF JAMA MD V70.5 HEALTH EXAMINATION OF DEFINED SUBPOPULATIONS 06/22/2013 NICOLA MANUEL DO V70.5 HEALTH EXAMINATION OF DEFINED SUBPOPULATIONS 06/22/2013 IDALIA JENKINSS, KELY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 03/24/2016 MADL, FLO L SENIOR INTEGRATION ARCHITECT Ot 785.1 PALPITATIONS 03/24/2016 FELICIA RESTREPO APRN [...] LOCO DO Ot K59.00 CONSTIPATION, UNSPECIFIED 03/24/2016 CLAUDY MIRANDA BLANTON Ot N39.0 URINARY TRACT INFECTION, SITE NOT SPECIF 03/24/2016 MIRANDA LOCO DO Ot R41.0 DISORIENTATION, UNSPECIFIED 06/29/2016 Ot 427.9 CARDIAC DYSRHYTHMIA NOS 06/29/2016 EVITA JONES, WOLF Carmona Ot 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 06/29/2016 EVITA JONES, WOLF Carmona Ot 724.2 LUMBAGO 06/29/2016 EVITA JONES, WOLF Carmona Ot 729.5 PAIN IN LIMB 06/29/2016 GERBER JONES, JENNIFER Altamirano Ot 240.9 GOITER NOS 06/29/2016 GERBER JONES, JENNIFER Altamirano Ot 789.01 ABDOMINAL PAIN, RIGHT UPPER QUADRANT 06/29/2016 MADL, FLO L SENIOR INTEGRATION ARCHITECT Ot 724.2 LUMBAGO 06/29/2016 MADL, FLO L SENIOR INTEGRATION ARCHITECT Ot 785.1 PALPITATIONS 06/29/2016 FELICIA RESTREPO APRN Ot Z87.42 PERSONAL HISTORY [...] Ot Z3A.15 15 WEEKS GESTATION OF 07/22/2016 CANDIDA PA, SUNITA L Ot F32.9 MAJOR DEPRESSIVE DISORDER, SINGLE EPISOD 07/22/2016 SUNITA BERNAL L Ot F41.9 ANXIETY DISORDER, UNSPECIFIED 07/22/2016 SUNITA BERNAL L Ot I47.1 SUPRAVENTRICULAR TACHYCARDIA 07/22/2016 SUNITA BERNAL L Ot O23.42 UNSP INFCT OF URINARY TRACT IN 07/22/2016 SUNITA BERNAL L Ot O99.332 SMOKING (TOBACCO) COMPLICATING 07/22/2016 SUNITA BERNAL L Ot R10.31 RIGHT LOWER QUADRANT PAIN 07/22/2016 SUNITA BERNAL Ot Z3A.18 18 WEEKS GESTATION OF 07/22/2016 SUNITA BERNAL Ot Z79.899 OTHER NURSING HOME (CURRENT) DRUG THERAPY 07/25/2016 SUNITA BERNAL Ot F32.9 MAJOR DEPRESSIVE DISORDER, SINGLE EPISOD 07/25/2016 SUNITA BERNAL Ot F41.9 ANXIETY DISORDER, UNSPECIFIED 07/25/2016 SUNITA BERNAL L Ot I47.1 SUPRAVENTRICULAR TACHYCARDIA 07/25/2016 SUNITA BERNAL L Ot O23.42 UNSP INFCT OF URINARY TRACT IN 07/25/2016 SUNITA BERNAL Ot O99.332 SMOKING (TOBACCO) COMPLICATING 07/25/2016 SUNITA BERNAL Ot R10.31 RIGHT LOWER QUADRANT PAIN 07/25/2016 SUNITA BERNAL Ot Z79.899 OTHER NURSING HOME (CURRENT) DRUG THERAPY 07/25/2016 SUNITA BERNAL Ot F32.9 MAJOR DEPRESSIVE DISORDER, SINGLE EPISOD 07/25/2016 SUNITA BERNAL Ot F41.9 ANXIETY DISORDER, UNSPECIFIED 07/25/2016 SUNITA BERNAL L Ot I47.1 SUPRAVENTRICULAR TACHYCARDIA 07/25/2016 SUNITA BERNAL L Ot O23.42 UNSP INFCT OF URINARY TRACT IN 07/25/2016 SUNITA BERNAL L Ot O99.332 SMOKING (TOBACCO) COMPLICATING 07/25/2016 SUNITA BERNAL L Ot R10.31 RIGHT LOWER QUADRANT PAIN 07/25/2016 SUNITA BERNAL L Ot Z79.899 OTHER ACTUARY CLERK (CURRENT) DRUG THERAPY 07/25/2016 SUNITA BERNAL Ot [...] OF 07/25/2016 SUNITA BERNAL Ot Z79.899 OTHER ACTUARY CLERK (CURRENT) DRUG THERAPY 09/14/2016 JENNIFER MAYES MD Ot O47.02 FALSE LABOR BEFORE 37 COMPLETED [...] WEEKS OF 11/08/2016 JENNIFER MAYES MD, Ot ZTrace.34 34 WEEKS GESTATION OF 11/10/2016 JENNIFER MAYES [...] Ot F17.210 NICOTINE DEPENDENCE, CIGARETTES, UNCOMPL 12/02/2016 CANDIDA PA, SUNITA L Ot K02.9 DENTAL CARIES, UNSPECIFIED 12/02/2016 SUNITA [...] Ot F17.210 NICOTINE DEPENDENCE, CIGARETTES, UNCOMPL 12/16/2016 CALVIN JACOBO MD Ot R11.2 NAUSEA WITH VOMITING, UNSPECIFIED 12/16/2016 [...] CYST OF RIGHT OVARY 01/12/2017 JENNIFER MAYES MD Ot N83.02 FOLLICULAR CYST OF LEFT OVARY [...] CYST OF LEFT OVARY 02/02/2017 JESSIE ROBERTS MD, Ot G89.18 OTHER ACUTE POSTPROCEDURAL PAIN 02/02/2017 JESSIE ROBERTS MD Ot K08.409 PARTIAL LOSS OF TEETH, UNSPECIFIED CAUSE 02/02/2017 JESSIE ROBERTS MD Ot K08.9 DISORDER OF TEETH AND SUPPORTING STRUCTU 02/03/2017 JESSIE ROBERTS MD Ot G89.18 OTHER ACUTE POSTPROCEDURAL PAIN 02/03/2017 JESSIE ROBERTS MD Ot K08.409 PARTIAL LOSS OF TEETH, UNSPECIFIED CAUSE 02/03/2017 JESSIE ROBERTS MD, Ot K08.9 DISORDER OF TEETH AND SUPPORTING STRUCTU 04/11/2017 LISA, FLO L SENIOR INTEGRATION ARCHITECT Ot R10.2 PELVIC AND PERINEAL PAIN 04/24/2017 MADL, FLO L SENIOR INTEGRATION ARCHITECT Ot R10.2 PELVIC AND PERINEAL PAIN 04/24/2017 Ot 427.9 CARDIAC DYSRHYTHMIA NOS 04/24/2017 WOLF JAMA MD Ot 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 04/24/2017 WOLF JAMA MD Ot 724.2 LUMBAGO 04/24/2017 WOLF JAMA MD Ot 729.5 PAIN IN LIMB 04/24/2017 JENNIFER MAYES MD, Ot 240.9 GOITER NOS 04/24/2017 JENNIFER MAYES MD, Ot 789.01 ABDOMINAL PAIN, RIGHT UPPER QUADRANT 04/24/2017 FLO GONZALEZ SENIOR INTEGRATION ARCHITECT Ot 724.2 LUMBAGO 04/24/2017 MADFLO Alfred SENIOR INTEGRATION ARCHITECT Ot 785.1 PALPITATIONS 04/24/2017 LAUROFELICIA TAQUERIA Ot Z87.42 PERSONAL HISTORY OF OTH DISEASES OF THE 04/24/2017 JENNIFER MAYES MD, Ot O36.0930 MATERNAL CARE FOR OTH RHESUS ISOIMMUN, T 04/24/2017 JENNIFER MAYES MD, Ot Z23 ENCOUNTER FOR IMMUNIZATION 04/24/2017 JENNIFER MAYES MD, Ot Z3A.00 WEEKS OF GESTATION OF NOT SPEC 04/24/2017 MADROSITA AlfredA L SENIOR INTEGRATION ARCHITECT Ot R10.2 PELVIC AND PERINEAL PAIN 05/03/2017 ROSITA GONZALEZA L SENIOR INTEGRATION ARCHITECT Ot R10.2 PELVIC AND PERINEAL PAIN 05/03/2017 ROSITA GONZALEZA L SENIOR INTEGRATION ARCHITECT Ot R10.2 PELVIC AND PERINEAL PAIN 11/30/2017 JENNIFER MYAES MD, Ot D64.9 ANEMIA, UNSPECIFIED 11/30/2017 JENNIFER [...] N83.202 UNSPECIFIED OVARIAN CYST, LEFT SIDE 12/21/2017 CALVIN JACOBO MD, Ot F17.210 NICOTINE DEPENDENCE, CIGARETTES, UNCOMPL 12/21/2017 CALVIN JACOBO MD, Ot F31.9 BIPOLAR DISORDER, UNSPECIFIED 12/21/2017 CALVIN JACOBO MD, Ot F41.9 ANXIETY DISORDER, UNSPECIFIED 12/21/2017 CALVIN JACOBO MD Ot G89.18 OTHER ACUTE POSTPROCEDURAL PAIN 12/21/2017 CAVLIN JACOBO MD Ot J45.909 UNSPECIFIED ASTHMA, UNCOMPLICATED 12/21/2017 CALVIN JACOBO MD Ot N99.820 POSTPROC HEMOR OF A SYS ORG FOLLOWING 12/21/2017 CALVIN JACOBO MD Ot Z87.448 PERSONAL HISTORY OF OTHER DISEASES OF UR 12/21/2017 CALVIN JACOBO MD Ot Z88.0 ALLERGY STATUS TO PENICILLIN 12/21/2017 CALVIN JACOBO MD, Ot Z88.8 ALLERGY STATUS TO OTH DRUG/MEDS/BIOL SUB 12/21/2017 CALVIN JACOBO MD, Ot Z90.721 ACQUIRED ABSENCE OF OVARIES, UNILATERAL 12/21/2017 CALVIN JACOBO MD Ot Z90.89 ACQUIRED ABSENCE OF OTHER ORGANS 12/25/2017 JENNIFER MAYES MD, Ot F17.210 NICOTINE DEPENDENCE, CIGARETTES, UNCOMPL 12/25/2017 JENNIFER MAYES MD, Ot F31.9 BIPOLAR DISORDER, UNSPECIFIED 12/25/2017 JENNIFER MAYES MD, Ot F41.9 ANXIETY DISORDER, UNSPECIFIED 12/25/2017 JENNIFER MAYES MD, Ot G40.909 EPILEPSY, UNSP, NOT INTRACTABLE, WITHOUT 12/25/2017 JENNIFER MAYES MD, Ot J45.909 UNSPECIFIED ASTHMA, UNCOMPLICATED 12/25/2017 JENNIFER MAYES MD, Ot N83.202 UNSPECIFIED OVARIAN CYST, LEFT SIDE 01/09/2018 MIRANDA LOCO DO Ot F17.210 NICOTINE DEPENDENCE, CIGARETTES, UNCOMPL 01/09/2018 CLAUDY BLANTON MIRANDA Workman Ot F31.9 BIPOLAR DISORDER, UNSPECIFIED 01/09/2018 CLAUDY BLANTON MIRANDA Workman Ot F41.9 ANXIETY DISORDER, UNSPECIFIED 01/09/2018 CLAUDY BLANTON MIRANDA Workman Ot G89.29 OTHER CHRONIC PAIN 01/09/2018 CLAUDY BLANTON MIRANDA Workman Ot M54.5 LOW BACK PAIN 01/09/2018 CLAUDY BLANTON MIRANDA Workman Ot Z86.79 PERSONAL HISTORY OF OTHER DISEASES OF TH 01/09/2018 CLAUDY BLANTON MIRANDA Workman Ot Z87.42 PERSONAL HISTORY OF OTH DISEASES OF THE 01/09/2018 CLAUDY BLANTON MIRANDA Workman Ot Z88.0 ALLERGY STATUS TO PENICILLIN 01/09/2018 CLAUDY BLANTONMIRANDA Ot Z88.1 ALLERGY STATUS TO OTHER ANTIBIOTIC AGENT 01/09/2018 CLAUDY MIRANDA Workman Ot Z88.6 ALLERGY STATUS TO ANALGESIC AGENT STATUS 01/09/2018 CLAUDY MIRANDA Workman Ot Z90.710 ACQUIRED ABSENCE OF BOTH CERVIX AND UTER 01/09/2018 CLAUDY BLANTONMIRANDA Jacinta Ot Z90.89 ACQUIRED ABSENCE OF OTHER ORGANS 01/10/2018 DONNELL JONES, CALVIN Kiser Ot F17.210 NICOTINE DEPENDENCE, CIGARETTES, UNCOMPL 01/10/2018 DONNELL JONES, CALVIN Kiser Ot F31.9 BIPOLAR DISORDER, UNSPECIFIED 01/10/2018 CALVIN JACOBO MD, Ot F41.9 ANXIETY DISORDER, UNSPECIFIED 01/10/2018 CALVIN JACOBO MD Ot G89.18 OTHER ACUTE POSTPROCEDURAL PAIN 01/10/2018 CALVIN JACOBO MD Ot J45.909 UNSPECIFIED ASTHMA, UNCOMPLICATED 01/10/2018 CALVIN JACOBO MD Ot N99.820 POSTPROC HEMOR OF A SYS ORG FOLLOWING 01/10/2018 CALVIN JACOBO MD, Ot Z87.448 PERSONAL HISTORY OF OTHER DISEASES OF UR 01/10/2018 CALVIN JACOBO MD Ot Z88.0 ALLERGY STATUS TO PENICILLIN 01/10/2018 CALVIN JACOBO MD Ot Z88.8 ALLERGY STATUS TO OTH DRUG/MEDS/BIOL SUB 01/10/2018 DONNELL JONES, CALVIN Kiser Ot Z90.721 ACQUIRED ABSENCE OF OVARIES, UNILATERAL 01/10/2018 DONNELL JONES, CALVIN Kiser Ot Z90.89 ACQUIRED ABSENCE OF OTHER ORGANS 01/11/2018 MIRANDA LOCO DO Ot F17.210 NICOTINE DEPENDENCE, CIGARETTES, UNCOMPL 01/11/2018 MIRANDA LOCO DO Ot F31.9 BIPOLAR DISORDER, UNSPECIFIED 01/11/2018 MIRANDA LOCO DO Ot F41.9 ANXIETY DISORDER, UNSPECIFIED 01/11/2018 MIRANDA LOCO DO Ot G89.29 OTHER CHRONIC PAIN 01/11/2018 MIRANDA LOCO DO Ot M54.5 LOW BACK PAIN 01/11/2018 CLAUDY BLANTON MIRANDA Workman Ot Z86.79 PERSONAL HISTORY OF OTHER DISEASES OF TH 01/11/2018 MIRANDA LOCO DO Ot Z87.42 PERSONAL HISTORY OF OTH DISEASES OF THE 01/11/2018 MIRANDA LOCO DO Ot Z88.0 ALLERGY STATUS TO PENICILLIN 01/11/2018 CLAUDY MIRANDA BLANTON Ot Z88.1 ALLERGY STATUS TO OTHER ANTIBIOTIC AGENT 01/11/2018 MIRANDA LOCO DO Ot Z88.6 ALLERGY STATUS TO ANALGESIC AGENT STATUS 01/11/2018 MIRANDA LOCO DO Ot Z90.710 ACQUIRED ABSENCE OF BOTH CERVIX AND UTER 01/11/2018 MIRANDA LOCO DO Ot Z90.89 ACQUIRED ABSENCE OF OTHER ORGANS 04/27/2018 ISMAEL SOL APRN Ot F31.9 BIPOLAR DISORDER, UNSPECIFIED 04/27/2018 ISMAEL SOL APRN Ot F41.9 ANXIETY DISORDER, UNSPECIFIED 04/27/2018 ISMAEL SOL APRN Ot J45.909 UNSPECIFIED ASTHMA, UNCOMPLICATED 04/27/2018 ISMAEL SOL APRN Ot M26.621 ARTHRALGIA OF RIGHT TEMPOROMANDIBULAR J 04/27/2018 ISMAEL SOL APRN Ot R68.84 JAW PAIN 04/27/2018 ISMAEL SOL APRN Ot W01.198A FALL SAME LEV FROM SLIP/TRIP W STRIKE AG 04/27/2018 ISMAEL SOL APRN Ot Z77.22 CNTCT W AND EXPSR TO ENVIRON TOBACCO SMO 04/27/2018 ISMAEL SOL APRN Ot Z87.42 PERSONAL HISTORY OF OTH DISEASES OF THE 04/27/2018 ISMAEL SOL APRN Ot Z88.0 ALLERGY STATUS TO PENICILLIN 04/27/2018 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 Ot Z88.1 ALLERGY STATUS TO OTHER ANTIBIOTIC AGENT 04/27/2018 ISMAEL SOL APRN Ot Z90.710 ACQUIRED ABSENCE OF BOTH CERVIX AND UTER 04/27/2018 ISMAEL SOL APRN Ot Z90.89 ACQUIRED ABSENCE OF OTHER ORGANS 04/30/2018 ISMAEL SOL APRN Ot F31.9 BIPOLAR DISORDER, UNSPECIFIED 04/30/2018 ISMAEL SOL APRN Ot F41.9 ANXIETY DISORDER, UNSPECIFIED 04/30/2018 ISMAEL SOL APRN Ot J45.909 UNSPECIFIED ASTHMA, UNCOMPLICATED 04/30/2018 ISMAEL SOL APRN Ot M26.621 ARTHRALGIA OF RIGHT TEMPOROMANDIBULAR J 04/30/2018 ISMAEL SOL APRN Ot R68.84 JAW PAIN 04/30/2018 ISMAEL SOL APRN Ot W01.198A FALL SAME LEV FROM SLIP/TRIP W STRIKE AG 04/30/2018 ISMAEL SOL APRN Ot Z77.22 CNTCT W AND EXPSR TO ENVIRON TOBACCO SMO 04/30/2018 ISMAEL SOL APRN Ot Z87.42 PERSONAL HISTORY OF OTH DISEASES OF THE 04/30/2018 ISMAEL SOL APRN Ot Z88.0 ALLERGY STATUS TO PENICILLIN 04/30/2018 ISMAEL SOL APRN Ot Z88.1 ALLERGY STATUS TO OTHER ANTIBIOTIC AGENT 04/30/2018 ISMAEL SOL APRN Ot Z90.710 ACQUIRED ABSENCE OF BOTH CERVIX AND UTER 04/30/2018 ISMAEL SOL APRN Ot Z90.89 ACQUIRED ABSENCE OF OTHER ORGANS 05/03/2018 GERBER JONES, JENNIFER Altamirano Ot R10.2 PELVIC AND PERINEAL PAIN 05/03/2018 JENNIFER MAYES MD Ot R10.2 PELVIC AND PERINEAL PAIN 05/09/2018 JENNIFER MAYES MD Ot R10.2 PELVIC AND PERINEAL PAIN 07/05/2018 DAVID SANDERS MD Ot F32.9 MAJOR DEPRESSIVE DISORDER, SINGLE EPISOD 07/05/2018 DAVID SANDERS MD Ot R00.2 PALPITATIONS 07/05/2018 DAVID SANDERS MD Ot R07.89 OTHER CHEST PAIN 07/12/2018 DAVID SANDERS MD Ot F32.9 MAJOR DEPRESSIVE DISORDER, SINGLE EPISOD 07/12/2018 DAVID SANDERS MD Ot R00.2 PALPITATIONS 07/12/2018 DAVID SANDERS MD Ot R07.89 OTHER CHEST PAIN 07/18/2018 DAVID SANDERS MD Ot F32.9 MAJOR DEPRESSIVE DISORDER, SINGLE EPISOD 07/18/2018 DAVID SANDERS MD Ot R00.2 PALPITATIONS 07/18/2018 DAVID SANDERS MD Ot R07.89 OTHER CHEST PAIN Procedures Code Description [place] [id number] ROUTINE VENIPUNCTURE 09/28/2012 69174 CBC 09/28/2012 95384 CRP 09/29/2012 20306 URINE TEST (IN- HOUSE) 11/29/2012 99225 URINE TEST (IN- HOUSE) 01/16/2013 11421 TRICHOMONAS (IN-HOUSE) 01/16/2013 45132 GC/CHLAM PROBE (STATE) 01/17/2013 51703 PAP SMEAR 01/17/2013 Q0091 PAP SMEAR OBTAIN SMEAR 01/17/2013 08245 CULTURE UROGENITAL 01/19/2013 32148 URINE TEST (IN- HOUSE) 02/13/2013 91003 URINE TEST (IN- HOUSE) 04/02/2013 13766 XRAY CERVICAL SPINE, 2 OR 3 VIEWS 04/02/2013 51159 XRAY LUMBAR SPINE 2 OR 3 VIEWS 04/02/2013 90982 MRI SPINE (LUMBAR) W/O CONTRAST 05/17/2013 58802 TB TEST INTRADERMAL 06/22/2013 94221 URINE TEST (IN- HOUSE) 08/01/2013 94674 UA LONG DIP 09/11/2013 3347598 GFR CALC (RESULT ONLY) 09/16/2013 15909 CREATININE 09/16/2013 58874 URINE PROTEIN 24 HOUR 09/16/2013 [id number] URINE CREATININE CLEARANCE 24 09/16/2013 73.6 EPISIOTOMY 03/22/2014 30492 ROUTINE VENIPUNCTURE 07/04/2014 38456 MRI SPINE (LUMBAR) W/O CONTRAST 07/04/2014 79725 CMP 07/04/2014 16492 CBC 07/04/2014 34712 ROUTINE VENIPUNCTURE 09/16/2014 23779 US ABDOMINAL ULTRASOUND, COMPLETE 09/16/2014 07530 VITAMIN D 25-HYDROXY (D2,D3 , TOTAL) 09/16/2014 96038 VIT B 12 09/16/2014 91753 TSH 09/16/2014 55658 H PYLORI (IN-HOUSE) 09/16/2014 78488 CBC 09/16/2014 5257364 GFR CALC (RESULT ONLY) 09/16/2014 36433 CMP 09/16/2014 65120 UA W/ CULTURE IF INDICATED 10/29/2014 29426 GC/CHLAM URINE (STATE) 10/29/2014 47615 PSYCH DIAGNOSTIC EVALUATION 10/31/2014 61484 ROUTINE VENIPUNCTURE 11/10/2014 19537 XRAY CHEST 2 VIEW 11/10/2014 55801 CMP 11/10/2014 10516 MAGNESIUM 11/10/2014 52412 CBC 11/10/2014 40374 EKG, TRACING (IN-HOUSE) 11/10/2014 05355 HOLTER MONITOR (OUTPATIENT) 11/10/2014 CARDIOLOG [facility] 11/10/2014 44557 PSYTX PT&/FAMILY 45 MINUTES 11/26/2014 [id number] DIVISION OF FEMALE PERINEUM, EXTERNAL AP 11/29/2016 [id number] DELIVERY OF PRODUCTS OF CONCEPTION, EXTE 11/29/2016 [...] GLOBULIN RHOPHYLAC PRSMD TRFSD 06/29/16 1556 NRG [id number] - 06/29/16 15:40 [id number] 1 300ug NRG Lot number - 06/29/16 15:40 Lot number [id number] NRG cell screen - 06/29/16 15:40 cell [...] culture - 06/29/16 16:25 Bacterial urine culture [id number] NRG COLONY COUNT >100,000/ML NRG FTX;REPORTABLE SENSITIVITY [...] identification in genital specimen by aerobe culture [id number] NRG Microscopic examination by wet preparation - [...] culture - 07/22/16 18:23 Bacterial urine culture [id number] NRG COLONY COUNT >100,000/ML NRG FTX;REPORTABLE SENSITIVITY [...] inhibitory concentration - NRG RH IMMUNE GLOBULIN BAYRHO - 10/05/16 12:19 RH IMMUNE GLOBULIN [facility] PRSMD TRFSD 10/05/16 1300 NRG [id number] - 10/05/16 12:19 [id number] 1 300ug NRG Lot number - 10/05/16 12:19 Lot number [id number] NRG cell screen - 10/05/16 12:19 cell [...] platelet mean volume measurement 10.9 [foz_us] 7.4-10.4 [id number] - 11/08/16 19:04 [id number] SPECIMEN AVAILABLE [facility] Complete blood count (CBC) with automated white [...] ABO+Rh group AN NRG Transfusion band number [id number] NRG Blood group antibody screen NEGATIVE NRG [...] ABO+Rh group AN NRG Transfusion band number [id number] NRG Blood group antibody screen NEGATIVE NRG [...] 7-25 CREATININE 0.63 mg/dL 0.50-1.10 eGFR NON-AFR. KENYAN 123 mL/min/1.73m2 > OR=60 eGFR 142 mL/min/1.73m2 [...] 13:46 CULTURE, URINE, ROUTINE SEE NOTE NRG PDM - ATS (PROFILE 8 WITH CONFIRMATION) - 05/17/18 10:32 Prescribed Drug 1 Klonopin(TM) NRG Creatinine 190.3 mg/dL > or=20.0 pH 5.81 4.5 - 9.0 Oxidant NEGATIVE mcg/mL <200 Amphetamines NEGATIVE ng/mL <500 medMATCH Amphetamines CONSISTENT NRG Benzodiazepines POSITIVE ng/mL <100 Marijuana Metabolite NEGATIVE ng/mL <20 medMATCH Marijuana Metab CONSISTENT NRG Cocaine Metabolite NEGATIVE ng/mL <150 medMATCH Cocaine Metab CONSISTENT NRG Opiates NEGATIVE ng/mL <100 medMATCH Opiates CONSISTENT NRG Oxycodone NEGATIVE ng/mL <100 medMATCH Oxycodone INCONSISTENT NRG COMMENT NRG Buprenorphine NEGATIVE ng/mL <5 MDMA NEGATIVE ng/mL <500 medMATCH MDMA CONSISTENT NRG Alcohol Metabolites NEGATIVE ng/mL <500 medMATCH Alcohol Metab CONSISTENT NRG 6 Acetylmorphine NEGATIVE ng/mL <10 medMATCH 6 Acetylmorphine CONSISTENT NRG Alphahydroxyalprazolam NEGATIVE ng/mL <25 medMATCH aOH alprazolam CONSISTENT NRG Alphahydroxymidazolam NEGATIVE ng/mL <50 medMATCH aOH midazolam CONSISTENT NRG Alphahydroxytriazolam NEGATIVE ng/mL <50 medMATCH aOH triazolam CONSISTENT NRG Aminoclonazepam 372 ng/mL <25 medMATCH Aminoclonazepam CONSISTENT NRG Hydroxyethylflurazepam NEGATIVE ng/mL <50 medMATCH OH,Et flurazepam CONSISTENT NRG Lorazepam NEGATIVE ng/mL <50 medMATCH Lorazepam CONSISTENT NRG Nordiazepam NEGATIVE ng/mL <50 medMATCH Nordiazepam CONSISTENT NRG Oxazepam NEGATIVE ng/mL <50 medMATCH Oxazepam CONSISTENT NRG Temazepam NEGATIVE ng/mL <50 medMATCH Temazepam CONSISTENT NRG Prescribed Drug 2 Oxycodone NRG Prescribed Drug 3 Oxycodone NRG medMATCH Buprenorphine CONSISTENT NRG TSH - 05/25/18 12:47 TSH 1.14 mIU/L NRG Encounters ACCT No. Visit Date/Time Discharge Status Pt. Type Provider Facility Loc./Unit Complaint [id number] 02/27/2015 09:25:00 02/27/2015 23:59:59 [facility] Outpatient GODWIN SEVILLA APRN [id number] 01/23/2015 11:47:00 01/23/2015 23:59:59 [facility] Outpatient GODWIN SEVILLA APRN [id number] 12/18/2014 16:07:00 12/18/2014 23:59:59 [facility] Outpatient NICOLA MANUEL DO [id number] 12/18/2014 10:25:00 12/18/2014 23:59:59 [facility] Outpatient ROEL SEASONAL TAX PREPARERGODWIN [id number] 12/16/2014 10:01:00 12/16/2014 23:59:59 CLS Outpatient ANGELA LSCS, DEMOND Fernando [id number] 11/26/2014 14:03:00 11/26/2014 23:59:59 C[facility] Outpatient ANGELA LSCS, DEMOND Fernando [id number] 11/21/2014 08:26:00 11/21/2014 23:59:59 CLS Outpatient SILVERIO DDSJOSE [id number] 11/10/2014 09:24:00 11/10/2014 23:59:59 CLS Outpatient MADL SEASONAL TAX PREPARER FLO L [id number] 10/31/2014 11:08:00 10/31/2014 23:59:59 CLS Outpatient ANGELA LSCS, DEMOND Fernando [id number] 10/29/2014 16:35:00 10/29/2014 23:59:59 CLS Outpatient SONNY SEASONAL TAX PREPARERELIAS [id number] 10/17/2014 11:27:00 10/17/2014 23:59:59 CLS Outpatient ROEL SEASONAL TAX PREPARERGODWIN Kirkpatrick [id number] 09/16/2014 09:30:00 09/16/2014 23:59:59 CLS Outpatient MADL SEASONAL TAX PREPARERNARAYANFLO L [id number] 09/16/2014 09:30:00 09/16/2014 23:59:59 CLS Outpatient MADL SEASONAL TAX PREPARER FLO L [id number] 08/01/2014 13:23:00 08/01/2014 23:59:59 CLS Outpatient ROEL SEASONAL TAX PREPARERGODWIN [id number] 08/01/2014 13:23:00 08/01/2014 23:59:59 CLS Outpatient ROEL GODWIN MENG [id number] 07/04/2014 08:35:00 07/04/2014 23:59:59 CLS Outpatient MADL SEASONAL TAX PREPARER FLO L [id number] 06/10/2014 09:22:00 06/10/2014 23:59:59 CLS Outpatient ROEL GODWIN MENG [id number] 05/27/2014 08:53:00 05/27/2014 23:59:59 CLS Outpatient FLO GONZALEZ APRN [id number] 05/08/2014 11:48:00 05/08/2014 23:59:59 CLS Outpatient GODWIN SEVILLA APRN [id number] 04/10/2014 09:33:00 04/10/2014 23:59:59 CLS Outpatient WOLF JAMA MD [id number] 03/11/2014 13:00:00 03/11/2014 23:59:59 CLS Outpatient JASON HUNTER APRN [id number] 03/11/2014 13:00:00 03/11/2014 23:59:59 CLS Outpatient JASON HUNTER APRN [id number] 12/10/2013 10:52:00 12/10/2013 23:59:59 CLS Outpatient JASON HUNTER APRN [id number] 10/18/2013 09:59:00 10/18/2013 23:59:59 CLS Outpatient KELY FRIEDMAN DDS [id number] 09/16/2013 12:50:00 09/16/2013 23:59:59 CLS Outpatient NICOLA MANUEL DO [id number] 09/11/2013 16:55:00 09/11/2013 23:59:59 CLS Outpatient WOLF JAMA MD [id number] 08/15/2013 12:35:00 08/15/2013 23:59:59 CLS Outpatient JASON HUNTER APRN [id number] 08/01/2013 09:18:00 08/01/2013 23:59:59 CLS Outpatient NICOLA MANUEL DO [id number] 02/13/2013 13:59:00 02/13/2013 23:59:59 CLS Outpatient [id number] 01/24/2013 15:27:00 01/24/2013 23:59:59 CLS Outpatient JASON SOLANO DO [id number] 01/16/2013 10:21:00 01/16/2013 23:59:59 CLS Outpatient NICOLA MANUEL DO [id number] 11/29/2012 15:05:00 11/29/2012 23:59:59 CLS Outpatient [id number] 09/28/2012 08:28:00 09/28/2012 23:59:59 C[place] Outpatient [place] MD [id number] 09/03/2012 15:05:00 09/03/2012 23:59:59 CLS Outpatient WOLF JAMA MD [id number] 06/22/2013 09:12:00 Document Registration [id number] 05/15/2013 10:52:00 Document Registration [id number] 05/09/2013 15:22:00 Document Registration [id number] 04/29/2013 08:59:00 Document Registration [id number] 04/26/2013 14:51:00 Document Registration [id number] 04/19/2013 10:48:00 Document Registration [id number] 04/02/2013 13:34:00 Document Registration [id number] 03/26/2013 13:02:00 Document Registration [id number] 03/23/2013 09:54:00 Document Registration [id number] 02/22/2013 12:11:00 Document Registration [id number] 05/24/2018 10:40:00 05/24/2018 23:59:59 CLS Outpatient NICOLA MANUEL DO [facility] [id number] 05/25/2018 11:20:00 Document Registration [id number] 05/17/2018 10:00:00 Document Registration [id number] 03/30/2018 13:05:00 Document Registration [id number] 02/21/2018 10:00:00 Document Registration [id number] 07/11/2018 12:50:00 07/11/2018 23:59:59 CLS Outpatient DAVID SANDERS MD [facility] CARD ANTERIOR CHEST WALL PAIN ,HEART PALPITATIONS [id number] 07/02/2018 07:47:00 07/02/2018 23:59:59 CLS Outpatient DAVID SANDERS MD [facility] CARD ANTERIOR CHEST WALL PAIN ,HEART PALPITATIONS [id number] 05/04/2018 08:44:00 05/14/2018 09:11:00 DIS Outpatient JENNIFER MAYES MD [facility] REHAB PELVIC FLOOR WEAKNESS [id number] 04/27/2018 18:44:00 04/27/2018 19:17:00 DIS Emergency ISMAEL SOL APRN [facility] ER JAW AND BACK PAIN [id number] 02/02/2018 08:37:00 02/02/2018 23:59:59 CLS Preadmit DAKSHA JOHNS DO [facility] RAD M54.16 RADICULOPATHY [id number] 01/09/2018 00:07:00 01/09/2018 01:21:00 DIS Emergency MIRANDA LOCO DO [facility] ER SEVERE BACK PAIN GOES DOWN INTO LEGS HIPS [id number] 12/21/2017 01:43:00 12/21/2017 02:17:00 DIS Emergency CALVIN JACOBO MD [facility] ER POST OP ABD SURGERY BLEEDING THRU,VERY PAINFULL [id number] 12/20/2017 10:50:00 12/20/2017 16:50:00 DIS Outpatient JENNIFER MAYES MD [facility] ENDOMETRIOSIS, CHRONIC PELVIC PAIN [id number] 11/30/2017 10:02:00 11/30/2017 10:40:00 DIS Outpatient JENNIFER MAYES MD [facility] PREOP ENDOMETRIOSIS, CHRONIC PELVIC PAIN [id number] 04/05/2017 09:36:00 04/05/2017 23:59:59 CLS Outpatient LISA FLO L [employer] ARCHITECT [facility] RAD R10.2 PELVIC PAIN [id number] 02/03/2017 09:42:00 02/03/2017 23:59:59 CLS Preadmit JENNIFER MAYES MD [facility] REHAB LBP TWO MONTHS ; S/P HYSTERECTOMY [id number] 02/02/2017 12:09:00 02/02/2017 12:47:00 DIS Emergency JESSIE ROBERTS MD [facility] ER DENTAL/JAW PAIN [id number] 01/09/2017 10:50:00 01/10/2017 09:45:00 DIS Outpatient JENNIFER MAYES MD [facility] CPP;DUB; ENDOMETRIOSIS [id number] 01/04/2017 12:09:00 01/04/2017 12:30:00 DIS Outpatient JENNIFER MAYES MD [facility] PREOP CPP;DUB; ENDOMETRIOSIS [id number] 12/16/2016 00:59:00 12/16/2016 02:52:00 DIS Emergency DONNELL JONES, CALVIN T [facility] ER NAUSEA,FEVER,HAD BABY ON 11-29-16 [id number] 12/02/2016 10:48:00 12/02/2016 14:00:00 DIS Emergency SUINTA BERNAL [facility] ER PALPITATIONS/BLURRY VISION [id number] 11/29/2016 17:45:00 12/01/2016 13:30:00 DIS Inpatient JENNIFER MAYES MD [facility] LDRP LABOR [id number] 11/26/2016 13:04:00 11/26/2016 15:11:00 DIS Outpatient JENNIFER MAYES MD [facility] WSo RIB PAIN/LOWER BACK PAIN [id number] 11/08/2016 18:28:00 11/08/2016 21:23:00 DIS Outpatient JENNIFER MAYES MD [facility] WSo LOWER BACK PAIN/ RIB PAIN/ABD PAIN/GROIN PAIN [id number] 10/05/2016 12:03:00 10/05/2016 23:59:59 CLS Outpatient JENNIFER MAYES MD [facility] WSo RH NEGATIVE IN [id number] 09/14/2016 12:52:00 09/14/2016 13:45:00 DIS Outpatient JENNIFER MAYES MD [facility] WSo LOOSING MUCUS PLUG 26 WKS PREG [id number] 07/22/2016 16:02:00 07/22/2016 19:50:00 DIS Emergency SUNITA BERNAL [facility] ER FEVER/CANNOT URINATE [id number] 06/29/2016 14:38:00 06/29/2016 18:17:00 DIS Emergency REZA CORONADO MD [facility] ER VAG BLEEDING 15 WKS PREG [id number] 03/23/2016 21:42:00 03/24/2016 01:40:00 DIS Emergency MIRANDA LOCO DO [facility] ER CONFUSED,DROWSY [id number] 01/02/2016 01:08:00 01/02/2016 01:43:00 DIS Emergency CLAUDY MIRANDA [facility] ER RT SIDE OF FACE PAINFUL, DENTAL PAIN [id number] 11/04/2015 14:43:00 11/04/2015 23:59:59 CLS Outpatient 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 [facility] RAD HISTORY OF ENDOMETRIOSIS [id number] 10/10/2015 16:42:00 10/10/2015 18:09:00 DIS Emergency ISMAEL SOL APRN [facility] ER HIP/BACK PAIN - POSSIBLY [id number] 08/31/2015 17:50:00 08/31/2015 19:59:00 DIS Emergency ISMAEL SOL APRN [facility] ER SEIZURE [id number] 08/26/2015 03:31:00 08/26/2015 05:08:00 DIS Emergency MIRANDA LOCO DO [facility] ER RT SIDE ABD PAIN [id number] 05/18/2015 11:11:00 05/18/2015 12:42:00 DIS Emergency ISMAEL SOL APRN [facility] ER ABD/LOWER BACK PAIN UTI SYMPTOMS [id number] 02/26/2015 09:00:00 02/26/2015 23:59:59 CLS Preadmit FLO GONZALEZ SENIOR INTEGRATION ARCHITECT [facility] CARD PALPITATIONS [id number] 11/27/2014 08:42:00 02/25/2015 00:01:00 DIS Outpatient ROSITA GONZALEZA L SENIOR INTEGRATION ARCHITECT [facility] CARD PALPITATIONS [id number] 12/09/2014 13:03:00 12/09/2014 14:48:00 DIS Emergency ISMAEL SOL APRN [facility] ER IRR HEART RATE [id number] 11/28/2014 21:04:00 11/28/2014 21:30:00 DIS Emergency ISMAEL SOL APRN [facility] ER TOOTH ACHE [id number] 09/18/2014 10:34:00 09/25/2014 11:11:00 DIS Outpatient JOSE FRIEDMAN MD [facility] REHAB LUMBAGO AND CERVICALGIA [id number] 09/19/2014 17:05:00 09/19/2014 18:13:00 DIS Emergency SUNITA BERNAL [facility] ER L SIDE FACIAL/DENTAL PAIN [id number] 08/11/2014 14:55:00 08/11/2014 23:59:59 CLS Outpatient LISA FLO L SENIOR INTEGRATION ARCHITECT [facility] RAD LBP [id number] 08/04/2014 15:27:00 08/04/2014 17:54:00 DIS Emergency 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 [facility] ER FALL [id number] 06/05/2014 15:36:00 06/05/2014 16:31:00 DIS Emergency REZA CORONADO MD [facility] ER CHEST CONGESTION, COUGH [id number] 05/01/2014 01:24:00 05/01/2014 03:36:00 DIS Emergency MIGDALIA RAMON DO [facility] ER BACK PAIN [id number] 04/24/2014 08:45:00 04/24/2014 23:59:59 CLS Outpatient JENNIFER MAYES MD [facility] RAD RUQ PAIN,GOITER [id number] 03/22/2014 13:08:00 03/26/2014 11:55:00 DIS Inpatient JENNIFER MAYES MD [facility] WS LABOR [id number] 03/20/2014 21:50:00 03/21/2014 09:00:00 DIS Inpatient JENNIFER MAYES MD [facility] WS RIB PAIN [id number] 03/14/2014 00:56:00 03/14/2014 01:44:00 DIS Outpatient JENNIFER MAYES MD [facility] WSo PRESSURE [id number] 02/11/2014 21:51:00 02/11/2014 22:50:00 DIS Outpatient JENNIFER MAYES MD [facility] WSo C/O CRAMPING [id number] 11/13/2013 15:06:00 11/13/2013 18:10:00 DIS Outpatient GERBER JONES, JENNIFER Altamirano [facility] WSo WATERY DISCHARGE SINCE 1400 [id number] 05/20/2013 08:48:00 05/20/2013 23:59:59 CLS Outpatient EVITA JONES, WOLF Carmona [facility] RAD LOW BACK PAIN,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,BLADDER DISFUNCT [id number] 04/30/2013 14:31:00 04/30/2013 16:18:00 DIS Emergency MEJIA JONES, YAW R [facility] ER LOW BACK/RT HIP PAIN ABSCESS RIGHT THIGH [id number] 04/20/2013 11:49:00 04/20/2013 13:40:00 DIS Emergency ARMANDO JONES, JESSIE Workman [facility] ER RAPID HEART BEAT, SOA [id number] 05/18/2015 11:12:00 Document Registration [id number] 05/18/2015 11:12:00 Document Registration [id number] 01/21/2015 00:32:00 Document Registration [id number] 09/25/2014 14:23:00 Document Registration [id number] 12/11/2012 16:00:00 Document Registration [id number] 12/08/2012 15:53:00 Document Registration [id number] 01/26/2012 09:17:00 Document Registration [id number] 01/18/2012 18:33:00 Document Registration [id number] 09/12/2011 15:20:00 Document Registration [id number] 06/27/2011 15:54:00 Document Registration [id number] 05/26/2010 22:10:00 Document Registration [id number] 05/06/2010 09:15:00 Document Registration [id number] 05/18/2015 11:12:53 ACT Document Registration [id number] 03/17/2017 07:05:00 Document Registration
[2018-08-05 21:27] LABS: BILIRUBIN,URINE NEGATIVE (NEGATIVE); CLARITY,URINE CLEAR; COLOR,URINE YELLOW; GLUCOSE, URINE (UA) NEGATIVE (NEGATIVE); KETONES,URINE NEGATIVE (NEGATIVE); LEUKOCYTE ESTERASE ,URINE 1+ (NEGATIVE); NITRITE,URINE NEGATIVE (NEGATIVE); PH,URINE 7 (5-9); PROTEIN,URINE NEGATIVE (NEGATIVE); UROBILINOGEN,URINE NORMAL (NORMAL)
[2018-08-05 21:28] LABS: BASOPHILS % (AUTO) 0 % (0-10); EOSINOPHILS # (AUTO) 0.2 10^3/uL (0.0-0.3); EOSINOPHILS % (AUTO) 2 % (0-10); HEMATOCRIT 42 % (35-52); HEMOGLOBIN 14.5 G/DL (11.5-16.0); LYMPHOCYTES # (AUTO) 2.7 X 10^3 (1.0-4.0); LYMPHOCYTES % (AUTO) 27 % (12-44); MEAN CORPUSCULAR HEMOGLOBIN 30 PG (25-34); MEAN CORPUSCULAR HGB CONC 34 G/DL (32-36); MEAN CORPUSCULAR VOLUME 88 FL (80-99); MEAN PLATELET VOLUME 10.6 FL (7.4-10.4); MONOCYTES # (AUTO) 0.9 X 10^3 (0.0-1.0); MONOCYTES % (AUTO) 9 % (0-12); NEUTROPHILS # (AUTO) 6.1 X 10^3 (1.8-7.8); NEUTROPHILS % (AUTO) 61 % (42-75); PLATELET COUNT 223 10^3/uL (130-400); RED BLOOD COUNT 4.82 10^6/uL (4.35-5.85); RED CELL DISTRIBUTION WIDTH 12.3 % (10.0-14.5)
[2018-08-05] MEDS ORDERED: NS 250 ML (IVPB) BAG IV ONE (21:30)
[2018-08-05] MEDS ORDERED: IOHEXOL 350 MG/ML 100 ML (OMNIPAQUE 350) VIAL IV ONE (21:30)
[2018-08-05 21:41] LABS: AMORPHOUS SEDIMENT,UR MOD AMOR URATES /LPF; BACTERIA,URINE FEW /HPF; RBC,URINE 0-2 /HPF; SQUAMOUS EPITHELIAL CELL,UR 0-2 /HPF; WBC,URINE 0-2 /HPF
[2018-08-05 21:50] LABS: ALANINE AMINOTRANSFERASE 10 U/L (0-55); ALBUMIN 4.6 GM/DL (3.2-4.5); ALKALINE PHOSPHATASE 53 U/L (40-136); BILIRUBIN,TOTAL 0.2 MG/DL (0.1-1.0); BUN/CREATININE RATIO 19; CALCIUM 9.6 MG/DL (8.5-10.1); CARBON DIOXIDE 24 MMOL/L (21-32); CHLORIDE 107 MMOL/L (98-107); CREATININE SERUM 0.78 MG/DL (0.60-1.30); GFR ESTIMATED > 60; GLUCOSE 90 MG/DL (70-105); POTASSIUM 3.9 MMOL/L (3.6-5.0); SODIUM 141 MMOL/L (135-145); TOTAL PROTEIN 7.4 GM/DL (6.4-8.2)
--- NOTE | 2018-08-05 22:09 | Diagnostic Imaging Report ---
PROCEDURE: CT abdomen and pelvis with contrast. TECHNIQUE: Multiple contiguous axial images were obtained through the abdomen and pelvis after administration of intravenous contrast. INDICATION: Abdominal pain. COMPARISON: Prior CT from 03/24/2016. FINDINGS: The lung bases are clear. The liver and gallbladder are unremarkable. The pancreas and spleen are unremarkable. No adrenal mass is identified. Kidneys are unremarkable. Aorta is non-aneurysmal. The small and large bowel loops are normal caliber. No obstruction is seen. There is no ascites. Bladder is unremarkable. There appear to be some inflammatory changes anterior to the left psoas muscle. Inflammatory changes surround some tubular structures at this location which may represent gonadal vasculature. There are some calcific densities near this location as well. No other abnormalities are seen. IMPRESSION: There appear to be inflammatory changes in the left retroperitoneum anterior to the left psoas muscle below the level of the kidneys. These inflammatory changes surround the gonadal vasculature. No definite filling defect is seen but the possibility of ovarian vein thrombophlebitis cannot be entirely excluded. No other significant abnormality is seen. Dictated by: Dictated on workstation # [id number]
[2018-08-05] MEDS ORDERED: IBUP-1780 PO (22:29)
[2018-08-05] MEDS ORDERED: HYDR-4226 PO (22:29)
[2018-08-05] MEDS ORDERED: RX-HYDROCODONE/APAP 5/325 MG #4 TAB PK PO PRN (22:30)
[2018-08-05 23:00] VITALS: BP 119/78
== END 2018-08-05 23:00 | disposition home or self-care (01) ==
LOC: EDUNIT# 20:10 → ER 20:11
DX: I82.890 Acute embolism and thrombosis of other specified veins (principal); R10.32 Left lower quadrant pain; J45.909 Unspecified asthma, uncomplicated; F41.9 Anxiety disorder, unspecified; F43.10 Post-traumatic stress disorder, unspecified; F31.9 Bipolar disorder, unspecified; F17.210 Nicotine dependence, cigarettes, uncomplicated; Z90.89 Acquired absence of other organs; Z79.52 Long term (current) use of systemic steroids; Z87.448 Personal history of other diseases of urinary system; Z90.710 Acquired absence of both cervix and uterus; Z88.0 Allergy status to penicillin; Z88.6 Allergy status to analgesic agent; Z88.8 Allergy status to other drugs, medicaments and biological substances
CPT/HCPCS: 36415; 74177; 80053; 81000; 85025; 96374

== ENCOUNTER → 2019-02-18 | Outpatient (CLI) | payer OTHER ==
[~2019-02-18] MED LIST changes: +HYDR-4226 PO; +METR-145 PO; -METR500T21 PO
--- NOTE | 2019-02-18 11:17 | Diagnostic Imaging Report ---
PROCEDURE: US abdomen complete. TECHNIQUE: Multiple real-time grayscale images were obtained over the abdomen in various projections. INDICATION: Abdominal pain. COMPARISON: The previous gallbladder ultrasound exam performed on 03/21/2014 failed to show any sign of an acute abnormality of the gallbladder. There was hydronephrosis of the right kidney however. FINDINGS: On this exam, the right kidney is generally unremarkable. There is no evidence for renal mass or for hydronephrosis. There is no evidence for cholelithiasis or acute cholecystitis and the common bile duct is not dilated. The liver is prominent. There is no focal mass involving the liver and the biliary tree is not abnormally distended. The pancreas, the left kidney, the spleen, the aorta and inferior vena cava are unremarkable. There is no mass or free fluid collection evident. IMPRESSION: 1. There is no evidence for an acute abnormality of the abdomen. 2. If clinical concern regarding an underlying abnormality of the gallbladder persists, nuclear medicine hepatobiliary scan would be recommended for further study. 3. The hydronephrosis of the right kidney seen previously has resolved. Dictated by: Dictated on workstation # [id number]
== END ==
LOC: RAD 07:31
PROVIDERS: ATTEND Surgery
DX: R10.32 Left lower quadrant pain (principal); R11.0 Nausea
CPT/HCPCS: 76700

== ENCOUNTER → 2019-02-28 | Outpatient (CLI) | payer OTHER ==
[~2019-02-28] MED LIST changes: +HOLD METFORMIN - RECEIVED CONTRAST 20 ML VIAL IV SCH; +IOHEXOL 350 MG/ML 100 ML (OMNIPAQUE 350) VIAL IV ONE
--- NOTE | 2019-02-28 12:04 | Diagnostic Imaging Report ---
PROCEDURE: CT abdomen and pelvis with and without contrast. TECHNIQUE: Precontrast acquisitions were acquired through the abdomen and pelvis. Multiple contiguous axial images were obtained through the abdomen and pelvis after the administration of intravenous contrast. Auto Exposure Controls were utilized during the CT exam to meet ALARA standards for radiation dose reduction. INDICATION: Abdominal pain for 2 weeks. Correlation is made with prior CT from 08/05/2018. FINDINGS: The lung bases are clear. Liver and gallbladder are unremarkable. No biliary ductal dilatation is seen. The pancreas and spleen are unremarkable. There is no adrenal mass. No renal calculi or hydronephrosis is identified. Abdominal aorta is nonaneurysmal. No central retroperitoneal or mesenteric lymphadenopathy is detected. The small and large bowel loops are normal caliber. No obstruction is identified. There is no ascites. Previously noted region of inflammatory change anterior to the left psoas muscle has resolved. No new inflammatory process is detected. Partially filled urinary bladder is unremarkable. The uterus is surgically absent. No pelvic lymphadenopathy is identified. The bony structures are nonacute. IMPRESSION: Unremarkable CT of the abdomen and pelvis with and without contrast. No acute abnormality is detected. Dictated by: Dictated on workstation # [id number]
== END ==
LOC: RAD 08:05
PROVIDERS: ATTEND Surgery
DX: R10.9 Unspecified abdominal pain (principal); Z90.710 Acquired absence of both cervix and uterus
CPT/HCPCS: 74178

== ENCOUNTER 2019-03-04 15:20 | Emergency (ER) | payer OTHER ==
[~2019-03-04] VITALS: Ht 167.6 cm; Wt 59.0 kg
[~2019-03-04 15:20] MED LIST changes: -HOLD METFORMIN - RECEIVED CONTRAST 20 ML VIAL IV SCH; -IOHEXOL 350 MG/ML 100 ML (OMNIPAQUE 350) VIAL IV ONE
--- NOTE | 2019-03-04 15:33 | ED Back Pain ---
General Stated Complaint: LOWER BACK/PELVIS PAIN Source of Information: Patient Exam Limitations: No Limitations History of Present Illness Date Seen by Provider: Mar 04, 2019 Time Seen by Provider: 15:30 Initial Comments 20-year-old white female presents with a complaint of low back pain that has been progressive over the last several days. The patient has had long-standing back pain secondary to degenerative disc disease. Patient has been using ibuprofen and Tylenol with reasonable relief. Patient denies paresthesias in the lower extremities or radiation of the low back pain. She's had no associated fever, chills, dysuria, frequency, or lateralizing low back pain, or difficulty with urine or bowel control. Allergies and Home Medications Allergies Coded Allergies: Penicillins (Unverified Allergy, Mild, PT ABLE TO TAKE ANCEF, 03/26/14) diclofenac (Unverified Allergy, Unknown, 01/21/15) divalproex sodium (Verified Allergy, Unknown, 08/26/15) Home Medications Clonazepam 0.5 Mg Tablet, 0.5 MG PO TID, (Reported) Hydrocodone/Acetaminophen 1 Each Tablet, 1 EACH PO Q6H PRN for PAIN-MODERATE Prescribed by: ISMAEL SOL on 08/05/182228 Ibuprofen 800 Mg Tablet, 800 MG PO Q8H PRN for PAIN Prescribed by: ISMAEL SOL on 08/05/182228 Lamotrigine 150 Mg Tablet, 150 MG PO DAILY, (Reported) Methylprednisolone 4 Mg Tab.ds.pk, 4 MG PO UD Prescribed by: MIRANDA LOCO on 01/09/1850 Methylprednisolone 4 Mg Tab.ds.pk, 4 MG PO UD Prescribed by: ISMAEL SOL on 04/27/18 190 Mirtazapine 30 Mg Tablet, 30 MG PO HS, (Reported) Ondansetron 4 Mg Tab.rapdis, 4 MG PO Q4H Prescribed by: MIRANDA LOCO on 01/09/1850 Orphenadrine Citrate 100 Mg Tablet.er, 100 MG PO BID FOR MUSCLE SPASMS Prescribed by: MIRANDA LOCO on 01/09/1850 Patient Home Medication List Home Medication List Reviewed: Yes Review of Systems Constitutional: no symptoms reported EENTM: no symptoms reported Respiratory: no symptoms reported Cardiovascular: no symptoms reported Gastrointestinal: No abdominal pain, No nausea, No vomiting Genitourinary: No dysuria, No frequency Musculoskeletal: back pain Skin: no symptoms reported Psychiatric/Neurological: No Symptoms Reported Past Ghcmqld-Eirovz-Cquuoz Hx Past Med/Social Hx: Reviewed Nursing Past Med/Soc Hx Patient Social History Type Used: Cigarettes 2nd Hand Smoke Exposure: Yes Recent Foreign Travel: No Contact w/Someone Who Travel: No Recent Hopitalizations: No Immunizations Up To Date Tetanus Booster (TDap): Less than 5yrs PED Vaccines UTD: Yes Date of Influenza Vaccine: Aug 30, 2017 Seasonal Allergies Seasonal Allergies: No Past Medical History Surgeries: Yes (LAPAROTOMY; HYST ; LSO; ) Abdominal, Adenoidectomy, Hysterectomy, Oophorectomy, Tonsillectomy Respiratory: Yes Asthma Cardiac: Yes (Hx. 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 Sexually Transmitted Disease: No HIV/AIDS: No Genitourinary: No Gastrointestinal: No Musculoskeletal: Yes Degenerate Disk Disease, Arthritis, Back Injury, Scoliosis, Chronic Back Pain Endocrine: No HEENT: No Cancer: No Psychosocial: Yes (EXTENSIVE PSYCH HISTORY) Anxiety, PTSD, Bipolar, Depression Integumentary: No Blood Disorders: No Adverse Reaction/Blood Tranf: No Family Medical History Family history: Hypertension (mother, MGM, and PGM) Heart disease (mother and father) History of - anemia (family Hx of blood transfusions) Infertile Kidney disease (MGM) No Pertinent Family Hx Physical Exam Vital Signs Vital Signs - First Documented 03/04/19 15:26 Temp 98.2 Pulse 105 Resp 20 B/P (MAP) 123/83 (96) Pulse Ox 99 O2 Delivery Room Air Capillary Refill : Height, Weight, BMI Height: 5'6.00" Weight: 140lbs. 0.0oz. 63.675380mn; 20.8 BMI Method:Stated General Appearance: No Apparent Distress HEENT: Normal ENT Inspection Neck: Normal Inspection Cardiovascular: Regular Rate, Rhythm Respiratory: Chest Non Tender, Lungs Clear Gastrointestinal: Normal Bowel Sounds Back: Normal Inspection Extremity: Normal Capillary Refill, Normal Inspection, Normal Range of Motion Neurologic/Psychiatric: Alert, Oriented x3, No Motor/Sensory Deficits Skin: Normal Color, Warm/Dry Progress/Results/Core Measures Results/Orders Lab Results Laboratory Tests Test 03/04/19 15:40 Range/Units Urine Color YELLOW Urine Clarity SLIGHTLY CLOUDY Urine pH 6 5-9 Urine Specific [place] 1.020 1.016-1.022 Urine Protein 1+ H NEGATIVE Urine Glucose (UA) NEGATIVE NEGATIVE Urine Ketones 1+ H NEGATIVE Urine Nitrite NEGATIVE NEGATIVE Urine Bilirubin NEGATIVE NEGATIVE Urine Urobilinogen NORMAL NORMAL MG/DL Urine Leukocyte Esterase 1+ H NEGATIVE Urine RBC (Auto) 1+ H NEGATIVE Urine RBC 0-2 /HPF Urine WBC RARE /HPF Urine Crystals NONE /LPF Urine Bacteria TRACE /HPF Urine Casts NONE /LPF Urine Mucus MODERATE H /LPF Urine Culture Indicated NO Urine Test NEGATIVE NEGATIVE My Orders Orders - ERIKA UNGER MD Ct Lumbar Spine Wo (03/04/19 15:34) Tramadol Tablet (Ultram Tablet) (03/04/19 15:45) Medications Given in ED Current Medications Medications Dose Ordered Sig/Antonia Route Start Time Stop Time Status Last Admin Dose Admin Tramadol HCl 100 mg ONCE ONCE PO 03/04/19 15:45 03/04/19 15:46 DC 03/04/19 15:44 100 MG Vital Signs/I&O 03/04/19 15:26 Temp 98.2 Pulse 105 Resp 20 B/P (MAP) 123/83 (96) Pulse Ox 99 O2 Delivery Room Air Progress Progress Note : Time: 16:46 Progress Note The patient's pain was markedly reduced with 2 tablets of Ultram [address] of the lumbar spine failed to demonstrate evidence of acute pathology. I discussed the findings with patient. I asked that she follow-up closely with [facility] tomorrow. I wrote a prescription for some more tramadol for the patient tonight. Departure Impression Primary Impression: Back pain Qualified Codes: M54.5 - Low back pain Disposition: 01 HOME, SELF-CARE Condition: Improved Departure-Patient Inst. Decision time for Depature: 16:48 Referrals: [facility], [facility] (PCP/Family) Primary Care Physician Patient Instructions: Low Back Pain (DC) Add. Discharge Instructions: Ultram for pain." [facility] tomorrow. Return if any problems or questions. Scripts Tramadol HCl (Ultram) 50 Mg Tablet 50 MG PO Q4H PRN for PAIN-MODERATE TO SEVERE, #20 TAB Prov: ERIKA UNGER MD 03/04/19 ERIKA UNGER MD Mar 04, 2019 15:33
[2019-03-04 15:51] LABS: BILIRUBIN,URINE NEGATIVE (NEGATIVE); CLARITY,URINE SLIGHTLY CLOUDY; COLOR,URINE YELLOW; GLUCOSE, URINE (UA) NEGATIVE (NEGATIVE); KETONES,URINE 1+ (NEGATIVE); LEUKOCYTE ESTERASE ,URINE 1+ (NEGATIVE); NITRITE,URINE NEGATIVE (NEGATIVE); PH,URINE 6 (5-9); PROTEIN,URINE 1+ (NEGATIVE); UROBILINOGEN,URINE NORMAL (NORMAL)
[2019-03-04 16:06] LABS: RBC,URINE 0-2 /HPF; WBC,URINE RARE /HPF
[2019-03-04 16:07] LABS: BACTERIA,URINE TRACE /HPF
--- NOTE | 2019-03-04 16:29 | Diagnostic Imaging Report ---
PROCEDURE: CT lumbar spine without contrast. TECHNIQUE: Multiple contiguous axial images were obtained through the lumbar spine without the use of intravenous contrast. Sagittal and coronal reformations were then performed. Auto Exposure Controls were utilized during the CT exam to meet ALARA standards for radiation dose reduction. INDICATION: Low back pain. FINDINGS: The alignment of the lumbar spine is normal. The vertebral body heights are well-maintained. There is no spondylolysis or spondylolisthesis. No fractures are identified. There are no lytic or sclerotic lesions. The visualized soft tissue structures are unremarkable. IMPRESSION: Unremarkable CT of the lumbar spine. Dictated by: Dictated on workstation # [id number]
--- OUTSIDE RECORDS SUMMARY | 2019-03-04 16:32 | XMS REPORT ---
Author Author Migration, Doctor Organization [facility] Address Unknown Phone Unavailable Care Team Providers Care Insurance Rater Name Role Phone Migration, Doctor Unavailable Unavailable PROBLEMS Type Condition ICD9-CM Code RTO81-CI Code Onset Dates Condition Status SNOMED Code Problem Generalized anxiety disorder F41.1 Active 63109618 Problem Bipolar disorder, current episode mixed, moderate F31.62 Active 501192495 Problem Acute non intractable tension-type headache G44.209 Active 837301954 Problem Constipation K59.00 Active 75490803 Problem Post traumatic stress disorder F43.10 Active 22963553 Problem Borderline personality disorder F60.3 Active 03072633 Problem Endometriosis N80.9 Active 460506655 Problem Acute right-sided low back pain with right-sided sciatica M54.41 Active [id number] ALLERGIES No Information ENCOUNTERS Encounter Location Date Diagnosis [facility] [id number] [place] [address] 09545- 4359 Feb, [facility] [address] 71328- 7247 Feb, Bipolar disorder, current episode mixed, moderate F31.62 [facility] [id number] [place] [address] 39942 -9940 Jan, Dehydration E86.0 and Back muscle spasm M62.830 [facility] [id number] [place] [address] 18819- 7603 Jan, Bipolar disorder, current episode mixed, moderate F31.62 ; Post traumatic stress disorder F43.10 ; Borderline personality disorder F60.3 and 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 [facility] [id number] [place] [address] 27761 -2890 Jan, Cough R05 and Viral upper respiratory tract infection J06.9 [facility] [address] 03736- 7806 Jan, Bipolar disorder, current episode mixed, moderate F31.62 [facility] [id number] [place] [address] 77902- 2493 08 Dec, 2018 Bipolar disorder, current episode mixed, moderate F31.62 [facility] [id number] [place] [address] 89472- 7328 Nov, Bipolar disorder, current episode mixed, moderate F31.62 [facility] [id number] [place] [address] 79340 -8153 Oct, Sore throat J02.9 [facility] [place] [address] 96149 -1880 Oct, Abdominal pain R10.9 ; Low back pain M54.5 ; Left shoulder pain M25.512 and Constipation K59.00 [facility] [id number] [place] [address] 96196- 2361 Oct, Bipolar disorder, current episode mixed, moderate F31.62 ; Post traumatic stress disorder F43.10 and Borderline personality disorder F60.3 [facility] [id number] [place] [address] 10963- 1342 Sep, Bipolar disorder, current episode mixed, moderate F31.62 [facility] [id number] [place] [address] 59044- 5407 Aug, Bipolar disorder, current episode mixed, moderate F31.62 [facility] [id number] [place] [address] 98111- 3480 Jul, Thrombophlebitis I80.9 and Pelvic pain R10.2 [facility] [id number] [place] [address] 23519- 9907 05 Jul, 2018 Bipolar disorder, current episode mixed, moderate F31.62 ; Post traumatic stress disorder F43.10 and Borderline personality disorder F60.3 [facility] [place] [id number] [place] [address] 87767- 2711 Jun, Bipolar disorder, current episode mixed, moderate F31.62 [facility] [id number] [place] [address] 34199- 8415 May, Palpitations R00.2 [facility] [id number] [place] [address] 02250- 2151 May, Palpitations R00.2 [facility] [address] 77000- 7442 May, Palpitations R00.2 and Frequent bowel movements R19.4 [facility] [id number] [place] [address] 40511- 3904 05 May, 2018 Bipolar disorder, current episode mixed, moderate F31.62 ; Post traumatic stress disorder F43.10 and Borderline personality disorder F60.3 [facility] [id number] [place] [address] [id number] Apr, Dental examination Z01.20 [facility] [id number] [place] [address] 09155 -4158 Apr, [facility] [id number] [place] [address] 71238 -9682 Apr, Tooth pain K08.89 [facility] [place] [id number] [place] [address] 92658- 4993 15 Apr, 2018 Dental examination Z01.20 [facility] [id number] [place] [address] 95087- 8176 06 Apr, 2018 Bipolar disorder, current episode mixed, moderate F31.62 ; Post traumatic stress disorder F43.10 and Borderline personality disorder F60.3 [facility] [id number] [place] [address] 03310 -8066 March, Abdominal pain R10.9 ; UTI symptoms R39.9 and Other microscopic hematuria R31.29 [facility] [place] [id number] [place] [address] 45068- 9299 March, [place] [id number] [place] [address] 67761- 9047 March, Bipolar disorder, current episode mixed, moderate F31.62 ; Post traumatic stress disorder F43.10 and Borderline personality disorder F60.3 [facility] [id number] [place] [address] 79246- 5571 Feb, Encounter for immunization Z23 [facility] [address] 919026- 9478 Feb, Bipolar disorder, current episode mixed, moderate F31.62 ; Post traumatic stress disorder F43.10 and Borderline personality disorder F60.3 [place] [id number] [place] [address] 14630- 0717 Feb, Bipolar disorder, current episode mixed, moderate F31.62 ; Post traumatic stress disorder F43.10 ; Borderline personality disorder F60.3 and 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.899 [place] [address] 96569- 0308 Jan, Encounter for immunization Z23 [facility] [id number] [place] [address] 40794- 5128 Jan, [facility] [id number] [place] [address] 35172- 2934 Jan, Bipolar disorder, current episode mixed, moderate F31.62 [facility] [id number] [place] [address] 61856 -4263 Jan, Lumbar back pain M54.5 [facility] [id number] [place] [address] 31064- 9001 Dec, Low back pain M54.5 [facility] [id number] [place] [address] 06155- 5065 Dec, Bipolar disorder, current episode mixed, moderate F31.62 [facility] [id number] [place] [address] 60246- 2442 Dec, Generalized anxiety disorder F41.1 and Bipolar disorder, current episode mixed, moderate F31.62 [facility] [id number] [place] [address] 14753 -7016 Nov, Acute non intractable tension-type headache G44.209 [facility] [id number] [place] [address] 76506- 7982 Nov, Bipolar disorder, current episode mixed, moderate F31.62 ; Post traumatic stress disorder F43.10 and Borderline personality disorder F60.3 [facility] [id number] [place] [address] 83948- 1534 Nov, Bipolar disorder, current episode mixed, moderate F31.62 [facility] [id number] [place] [address] 45635 -9184 Nov, Abdominal pain R10.9 ; History of PCOS Z87.42 ; History of endometriosis Z87.42 and Pelvic pain R10.2 [facility] [id number] [place] [address] 00453- 9117 Nov, [facility] [id number] [place] [address] 01163 -6976 Oct, History of PCOS Z87.42 ; History of endometriosis Z87.42 and Pain R52 [facility] [id number] [place] [address] 53860- 2236 Oct, Bipolar disorder, current episode mixed, moderate F31.62 ; Post traumatic stress disorder F43.10 and Borderline personality disorder F60.3 [place] [id number] [place] [address] 19572- 8440 Oct, Bipolar disorder, current episode mixed, moderate F31.62 [place] [address] 78922- 5015 Sep, Bipolar disorder, current episode mixed, moderate F31.62 ; Post traumatic stress disorder F43.10 ; Borderline personality disorder F60.3 and 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 [place] [address] [address]- 6109 17 Sep, 2017 Bipolar disorder, current episode mixed, moderate F31.62 [facility] [id number] [place] [address] 46987 -5729 Sep, Endometriosis N80.9 and Acute right-sided low back pain with right-sided sciatica M54.41 [facility] [id number] [place] [address] 24179- 4562 Aug, [facility] [id number] [place] [address] 08928- 5298 Aug, Bipolar disorder, current episode mixed, moderate F31.62 ; Post traumatic stress disorder F43.10 and Borderline personality disorder F60.3 [facility] [id number] [place] [address] 55816- 6261 11 Aug, 2017 Bipolar disorder, current episode mixed, moderate F31.62 ; Post traumatic stress disorder F43.10 and Borderline personality disorder F60.3 [facility] [address] [place] [address] 10377- 2336 13 Jul, 2017 Bipolar disorder, current episode mixed, moderate F31.62 ; Post traumatic stress disorder F43.10 and Borderline personality disorder F60.3 [facility] [id number] [place] [address] 76214 -4634 11 Jul, 2017 Pharyngitis, unspecified etiology J02.9 and Streptococcal pharyngitis J02.0 [facility] [address] [place] [address] 71927- 9321 16 Jun, 2017 Bipolar disorder, current episode mixed, moderate F31.62 ; Post traumatic stress disorder F43.10 and Borderline personality disorder F60.3 [place] [address] [place] [address] 31951- 1089 May, [place] [id number] [place] [address] 54298- 6356 May, [place] [id number] [place] [address] 14371- 0998 May, Bipolar disorder, current episode mixed, moderate F31.62 and Generalized anxiety disorder F41.1 [place] [id number] [place] [address]- 5470 March, Bipolar disorder, current episode mixed, moderate F31.62 and Generalized anxiety disorder F41.1 [place] [address] 48413- 2149 March, Pelvic pain R10.2 [place] [address] 03896- 1412 March, [place] [id number] [place] [address] 59105- 4209 Feb, Bipolar disorder, current episode mixed, moderate F31.62 and Generalized anxiety disorder F41.1 [facility] [id number] [place] [address] 02734- 9583 Jan, [facility] [id number] [place] [address] 45447- 0323 Jan, Bipolar disorder, current episode mixed, moderate F31.62 [facility] [id number] [place] [address] 57348- 4365 Jan, Bipolar disorder, current episode mixed, moderate F31.62 [facility] [id number] [place] [address] 04815- 3008 Jan, Bilateral low back pain without sciatica M54.5 [facility] [id number] [place] [address] [id number] Jan, Dental caries K02.9 and Dental examination Z01.20 [facility] [id number] [place] [address] [id number] Jan, Encounter for dental examination and cleaning without abnormal findings Z01.20 [facility] [id number] [place] [address] 88353- 6168 Jan, Bipolar disorder, current episode mixed, moderate F31.62 and Generalized anxiety disorder F41.1 [facility] [id number] [place] [address] 07724- 4543 Dec, [facility] [id number] [place] [address] 23294- 3986 Dec, Bipolar disorder, current episode mixed, moderate F31.62 and Generalized anxiety disorder F41.1 [facility] [id number] [place] [address] 84156- 7118 Dec, Other fatigue R53.83 and Orthostatic hypotension I95.1 [facility] [address] [id number] Nov, Dental examination Z01.20 [facility] [id number] [place] [address] 41981 -5804 Nov, Bronchitis J40 [facility] [id number] [place] [address] 75587- 0150 Oct, Generalized anxiety disorder F41.1 [facility] [id number] [place] [address] 80033- 6216 14 Sep, 2016 Bipolar disorder, current episode mixed, moderate F31.62 and Generalized anxiety disorder F41.1 [place] [id number] [place] [address] 54475- 3949 02 Sep, 2016 Bipolar disorder, current episode mixed, moderate F31.62 and Generalized anxiety disorder F41.1 [facility] [id number] [place] [address] 04000 -5957 08 Jul, 2016 Upper respiratory tract infection, unspecified type J06.9 [facility] [id number] [place] [address] 13998- 7091 Jun, Bipolar disorder, current episode mixed, moderate F31.62 and Generalized anxiety disorder F41.1 [place] [id number] [place] [address] 00024- 4380 Apr, [place] [address] [address]- 9430 Apr, Encounter for test, result positive Z32.01 [facility] [id number] [place] [address] 64163- 4638 March, [facility] [id number] [place] [address] 59020- 3350 March, Bipolar disorder, current episode mixed, moderate F31.62 and Generalized anxiety disorder F41.1 [facility] [id number] [place] [address] 55509- 9163 March, Bipolar disorder, current episode mixed, moderate F31.62 and Generalized anxiety disorder F41.1 [facility] [id number] [place] [address] 41675- 1454 March, [facility] [id number] [place] [address] 99957- 7132 March, [facility] [id number] [place] [address] 40941- 6334 Feb, [facility] [id number] [place] [address] 26553- 4351 Feb, [facility] [id number] [place] [address] 42425- 1845 Feb, Bipolar disorder, current episode mixed, moderate F31.62 and Generalized anxiety disorder F41.1 [facility] [id number] [place] [address] 96368- 5814 Jan, Abdominal pain R10.9 [facility] [id number] [place] [address] 16912- 8498 Jan, [facility] [id number] [place] [address] 83640- 3361 Dec, Dental examination Z01.20 [facility] [id number] [place] [address] 51862- 1623 22 Feb, 2016 Dental examination Z01.20 and Dental caries K02.9 [place] [address] [place] [address] 77295- 2468 15 Dec, 2015 Bipolar disorder, current episode mixed, moderate F31.62 and Generalized anxiety disorder F41.1 [place] [address] [place] [address] 84585- 8400 15 Dec, 2015 [place] [address] 08175- 5660 Nov, Bipolar disorder, current episode mixed, moderate F31.62 ; Generalized anxiety disorder F41.1 and Seizure-like activity R56.9 [place] [id number] [place] [address] 74089- 7839 Oct, [place] [id number] [place] [address] 22656- 1898 Oct, Bipolar disorder, current episode mixed, moderate F31.62 [place] [id number] [place] [address] 05981- 0338 14 Oct, 2015 Well woman exam Z01.419 [...] Tobacco use Z72.0 and Hot flashes N95.1 [place] [address] [place] [address] 86035- 2609 09 Oct, 2015 Seizure-like activity R56.9 and Irregular periods N92.6 [place] [address] [place] [address] 72851- 4481 07 Oct, 2015 Bipolar disorder, current episode mixed, moderate F31.62 ; Generalized anxiety disorder F41.1 and Underweight R63.6 [facility] [address] [place] [address] 26306- 1744 Oct, [facility] [address] 52661- 6748 Oct, Generalized anxiety disorder F41.1 and Unspecified mood [ affective] disorder F39 [facility] [id number] [place] [address] 98798 -1506 Oct, Back pain M54.9 and Anxiety F41.9 [facility] [id number] [place] [address] 21318- 5804 Oct, [facility] [address] 75212 -7389 Sep, Arm pain, left M79.602 [facility] [address] 31118- 7908 Sep, [facility] [address] [id number] Sep, Dental examination Z01.20 and Dental caries K02.9 [facility] [id number] [place] [address] 62343- 4610 Sep, Generalized anxiety disorder F41.1 and Unspecified episodic mood disorder F39 [facility] [id number] [place] [address] 15055- 7419 Sep, Bilateral low back pain without sciatica M54.5 and Seizure- like activity R56.9 [facility] [id number] [place] [address] 12215- 8564 Aug, [facility] [address] 52627- 4833 Aug, [facility] [id number] [place] [address] 11691- 4642 Aug, [facility] [address] 64498- 5250 Aug, Visual changes H53.9 and Bilateral low back pain without sciatica M54.5 [facility] [address] [place] [address] 60514- 7067 Jul, [facility] [id number] [place] [address] 18351- 8824 Jun, Bipolar I disorder, most recent episode (or current) mixed, moderate 296.62 ; Generalized anxiety disorder 300.02 and High risk medication use V58.69 [facility] [id number] [place] [address] 83710- 4021 Jun, [facility] [id number] [place] [address] 19901- 8789 May, [facility] [id number] [place] [address] 60264- 7629 May, Bipolar I disorder, most recent episode (or current) mixed, moderate 296.62 and Generalized anxiety disorder 300.02 [facility] [id number] [place] [address] [id number] May, Dental examination V72.2 [facility] [id number] [place] [address] 38109- 1404 March, Bipolar I disorder, most recent episode (or current) mixed, moderate 296.62 and Generalized anxiety disorder 300.02 [facility] [id number] [place] [address] 43880- 7906 March, [facility] [id number] [place] [address] 48518- 1215 March, [facility] [id number] [place] [address] 29749- 8057 March, Underweight 783.22 ; Hand pain, right 729.5 and Reflux gastritis 535.40 [facility] [id number] [place] [address] 35575- 7186 14 Feb, 2015 [facility] [address] 99822- 2383 13 Feb, 2015 [facility] [place] [facility] [address] [id number] [place] [address]- 4666 18 Jan, 2015 [facility] [place] [facility] [address] [id number] [place] [address]- 4506 18 Jan, 2015 [facility] [place] [facility] [address] [id number] [place] [address]- 0459 16 Jan, 2015 [facility] [place] [facility] [address] [id number] [place] [address]- 0275 16 Jan, 2015 [facility] [place] [facility] [address] [id number] [place] [address]- 6045 Jan, [facility] [place] [facility] [address] [id number] [place] [address]- 9249 Jan, [facility] [place] [facility] [address] [id number] [place] [address]- 3894 05 Jan, 2015 [facility] [place] [facility] [address] [id number] [place] [address]- 2631 05 Jan, 2015 [facility] [place] [facility] [address] [id number] [place] [address]- 3164 Jan, [facility] [place] [facility] [address] [id number] [place] [address]- 5421 Jan, [facility] [place] [facility] [address] [id number] [place] [address]- 4467 Jan, [facility] [place] [facility] [address] [id number] [address] Jan, [facility] [place] [facility] [address] [id number] [place] [address] Dec, [facility] [place] [facility] [address] [id number] [place] [address] Dec, [facility] [place] [facility] [address] [id number] [place] [address] Dec, [facility] [place] [facility] [address] [id number] [place] [address] 19 Dec, 2014 [facility] [place] [facility] [address] [id number] [place] [address] 18 Dec, 2014 [facility] [place] [facility] [address] [id number] [place] [address] 17 Dec, 2014 [facility] [place] [facility] [address] [facility] [id number] [place] [address] 17 Dec, 2014 [facility] [place] [facility] [address] [id number] [place] [address] 16 Dec, 2014 [facility] [place] [facility] [address] [id number] [place] [address] 16 Dec, 2014 [facility] [place] [facility] [address] [facility] [id number] [place] [address] 05 Dec, 2014 [facility] [place] [facility] [address] [facility] [id number] [place] [address] 05 Dec, 2014 [facility] [place] [facility] [address] [facility] [id number] [place] [address] 05 Dec, 2014 [facility] [place] [facility] [address] [facility] [id number] [place] [address] 05 Dec, 2014 [facility] [place] [facility] [address] [facility] [id number] [place] [address] Dec, 2014 [facility] [place] [facility] [address] [facility] [id number] [address] Dec, 2014 [facility] [place] [facility] [address] [facility] [id number] [place] [address] Dec, 2014 [facility] [place] [facility] [address] [facility] [id number] [address] 04 Dec, 2014 [facility] [place] [facility] [address] [facility] [id number] [place] [address] 2626 03 Dec, 2014 [facility] [place] [facility] [address] [facility] [id number] [place] [address] 2546 Dec, [facility] [place] [facility] [address] [id number] [place] [address] 2546 Nov, [facility] [place] [facility] [address] [id number] [place] [address] 2546 Nov, [facility] [place] [facility] [address] [id number] [place] [address]- 2546 Nov, [facility] [place] [facility] [address] [id number] [place] [address]- 2546 Nov, [facility] [place] [facility] [address] [id number] [place] [address] 3276 Nov, [facility] [place] [facility] [address] [id number] [place] [address] 2546 Nov, [facility] [place] [facility] [id number] [id number] Nov, [facility] [place] [facility] [address] [id number] [place] [address]- 2546 Nov, [facility] [place] [facility] [address] [id number] [place] [address] 2546 Nov, [facility] [place] [facility] [id number] [id number] Nov, [facility] [place] [facility] [address] [id number] [place] [address] 2546 Nov, [facility] [place] [facility] [address] [id number] [place] [address]- 25[address] Nov, [facility] [place] [facility] [address] [id number] [place] [address]- 2546 Oct, [facility] [place] [facility] [address] [id number] [place] [address]- 2546 Oct, [facility] [place] [facility] [address] [id number] [place] [address]- 2546 Oct, [facility] [place] [facility] [address] [id number] [place] [address]- 2061 30 Oct, 2014 [facility] [place] [facility] [address] [id number] [place] [address]- 8043 Oct, [facility] [place] [facility] [address] [id number] [place] [address]- 6076 Oct, [facility] [place] [facility] [address] [id number] [place] [address]- 8224 Oct, [facility] [place] [facility] [address] [id number] [place] [address]- 3325 Oct, [facility] [place] [facility] [address] [id number] [place] [address] Oct, [facility] [place] [facility] [address] [id number] [place] [address] Oct, [facility] [place] [facility] [address] [id number] [place] [address]- 3959 Oct, [facility] [place] [facility] [address] [id number] [place] [address]- 0642 Oct, [facility] [place] [facility] [address] [id number] [place] [address] 9905 Sep, [facility] [place] [facility] [address] [id number] [place] [address] Sep, [facility] [place] [facility] [address] [id number] [place] [address]- 5836 Sep, [facility] [place] [facility] [address] [id number] [place] [address]- 6781 Sep, [facility] [place] [facility] [address] [id number] [place] [address]- 0281 Sep, [facility] [place] [facility] [address] [id number] [place] [address]- 5539 Sep, [facility] [place] [facility] [address] [id number] [place] [address] 2480 Sep, [facility] [place] [facility] [address] [id number] [place] [address]- 3060 Sep, [facility] [place] [facility] [address] [id number] [place] [address]- 6612 Aug, [facility] [place] [facility] [address] [id number] [place] [address]- 0282 Aug, [facility] [place] [facility] [address] [id number] [place] [address] 4711 Aug, [facility] [place] [facility] [address] [id number] [place] [address]- 5149 Aug, [facility] [place] [facility] [address] [id number] [place] [address]- 8758 Aug, [facility] [place] [facility] [address] [id number] [place] [address]- 4191 Aug, [facility] [place] [facility] [address] [id number] [place] [address] 7631 Aug, [facility] [place] [facility] [address] [id number] [place] [address]- 0821 Aug, [facility] [place] [facility] [address] [id number] [place] [address] 4285 Aug, [facility] [place] [facility] [address] [id number] [address]- 5584 Aug, [facility] [place] [facility] [address] [id number] [place] [address]- 7287 Aug, [facility] [place] [facility] [address] [id number] [place] [address] 8127 Aug, [facility] [place] [facility] [address] [id number] [place] [address]- 6542 Aug, [facility] [place] [facility] [address] [id number] [place] [address]- 1157 Jul, [facility] [place] [facility] [address] [id number] [place] [address] 3004 Jul, [facility] [place] [facility] [address] [id number] [place] [address]- 9497 Jul, [facility] [place] [facility] [address] [id number] [place] [address]- 4933 Jul, [facility] [place] [facility] [address] [id number] [place] [address]- 8661 Jun, [facility] [place] [facility] [address] [id number] [place] [address]- 3321 Jun, [facility] [place] [facility] [address] [id number] [place] [address]- 7799 Jun, [facility] [place] [facility] [address] [id number] [place] [address]- 8237 Jun, [facility] [place] [facility] [address] [id number] [place] [address]- 6236 Jun, [facility] [place] [facility] [address] [id number] [place] [address]- 9477 Jun, [facility] [place] [facility] [address] [id number] [place] [address]- 4010 May, [facility] [place] [facility] [address] [id number] [place] [address]- 7314 May, [facility] [place] [facility] [address] [id number] [place] [address]- 4383 May, [facility] [place] [facility] [address] [id number] [place] [address]- 0339 May, [facility] [place] [facility] [address] [id number] [place] [address]- 3584 Apr, [facility] [place] [facility] [address] [id number] [place] [address]- 6621 Apr, [facility] [place] [facility] [address] [id number] [place] [address]- 2154 March, [facility] [place] [facility] [address] [id number] [place] [address]- 1803 March, [facility] [place] [facility] [address] [id number] [place] [address]- 1014 March, [facility] [place] [facility] [address] [id number] [place] [address]- 9575 March, [facility] [place] [facility] [address] [id number] [place] [address]- 7748 March, [facility] [place] [facility] [address] [id number] [place] [address]- 3254 March, [facility] [place] [facility] [address] [id number] [place] [address]- 1980 Feb, [facility] [place] [facility] [address] [id number] [place] [address]- 8485 Feb, [facility] [place] [facility] [address] [id number] [place] [address]- 7787 Dec, [facility] [place] [facility] [address] [id number] [place] [address]- 4804 Dec, [facility] [place] [facility] [address] [id number] [place] [address]- 6762 Nov, [facility] [place] [facility] [address] [id number] [place] [address]- 5083 Nov, [facility] [place] [facility] [address] [id number] [place] [address]- 9720 Sep, [facility] [place] [facility] [address] [id number] [place] [address]- 7865 Sep, [facility] [place] [facility] [address] [id number] [place] [address]- 5412 Sep, [facility] [place] [facility] [address] [id number] [place] [address]- 4710 Sep, [facility] [place] [facility] [address] [id number] [address]- 6162 Sep, [facility] [place] [facility] [address] [id number] [place] [address]- 6512 Sep, [facility] [place] [facility] [address] [id number] [place] [address]- 7169 Sep, [facility] [place] [facility] [address] [id number] [place] [address]- 4677 Aug, [facility] [place] [facility] [address] [id number] [place] [address]- 0961 Aug, [facility] [place] [facility] [address] [id number] [place] Aug, [facility] [place] [facility] [address] [id number] [place] [address]- 9188 Aug, [facility] [place] [facility] [address] [id number] [place] [address]- 1795 Aug, [facility] [place] [facility] [address] [id number] [place] [address]- 4889 Aug, [facility] [place] [facility] [address] [id number] [place] [address]- 4523 Jul, [facility] [place] [facility] [address] [id number] [place] [address]- 4492 Jul, [facility] [place] [facility] [address] [id number] [place] [address]- 8579 16 Jul, 2013 [facility] [place] [facility] [address] [id number] [address]- 0441 13 Jul, 2013 [facility] [place] [facility] [address] [id number] [place] [address]- 0850 Jun, [facility] [place] [facility] [address] [id number] [place] [address]- 3021 Jun, [facility] [place] [facility] [address] [id number] [place] [address]- 8409 Jun, [facility] [place] [facility] [address] [id number] [place] [address]- 2960 Jun, [facility] [address] [id number] [place] [address]- 3871 Jun, [facility] [place] [facility] [address] [id number] [place] [address]- 1056 Jun, [facility] [place] [facility] [address] [id number] [place] [address]- 5235 Jun, [facility] [place] [facility] [address] [id number] [place] [address]- 2382 May, [facility] [place] [facility] [address] [id number] [place] [address]- 6836 May, [facility] [place] [facility] [address] [id number] [place] [address]- 3395 May, [facility] [place] [facility] [address] [id number] [place] [address]- 7218 May, [facility] [place] [facility] [address] [id number] [place] [address]- 7460 May, [facility] [place] [facility] [address] [id number] [place] [address]- 3018 May, [facility] [place] [facility] [address] [id number] [place] [address]- 5133 May, [facility] [place] [facility] [address] [id number] [place] [address]- 1559 Apr, [facility] [place] [facility] [address] [id number] [place] [address]- 7642 Apr, [facility] [place] [facility] [address] [id number] [place] [address]- 5106 Apr, [facility] [place] [facility] [address] [id number] [place] [address]- 4007 Apr, [facility] [place] [facility] [address] [id number] [place] [address]- 0292 Apr, [facility] [place] [facility] [address] [id number] [place] [address]- 5152 18 Apr, 2013 [facility] [place] [facility] [address] [id number] [place] [address]- 4867 18 Apr, 2013 [facility] [place] [facility] [address] [id number] [place] [address]- 1217 18 Apr, 2013 [facility] [place] [facility] [address] [id number] [place] [address]- 2017 17 Apr, 2013 [facility] [place] [facility] [address] [id number] [place] [address]- 7988 14 Apr, 2013 [facility] [place] [facility] [address] [id number] [place] [address]- 3625 14 Apr, 2013 [facility] [place] [facility] [address] [id number] [place] [address]- 0823 11 Apr, 2013 [facility] [place] [facility] [address] [id number] [place] [address]- 5123 10 Apr, 2013 [facility] [place] [facility] [address] [id number] [place] [address]- 1623 09 Apr, 2013 [facility] [place] [facility] [address] [id number] [address]- 1177 07 Apr, 2013 [facility] [place] [facility] [address] [id number] [place] [address]- 7383 06 Apr, 2013 [facility] [place] [facility] [address] [id number] [place] [address]- 5312 06 Apr, 2013 [facility] [place] [facility] [address] [id number] [place] [address]- 3424 05 Apr, 2013 [facility] [place] [facility] [address] [id number] [address]- 7402 03 Apr, 2013 [facility] [place] [facility] [address] [id number] [place] [address]- 7025 March, [facility] [place] [facility] [address] [id number] [place] [address]- 7352 March, [facility] [address] [id number] [place] [address]- 3352 March, [facility] [address] [id number] [place] [address]- 1387 March, [facility] [address] [id number] [place] [address]- 5221 March, [facility] [address] [id number] [place] [address]- 4152 March, [facility] [address] [id number] [place] [address]- 0819 March, [facility] [address] [id number] [place] [address]- 8496 Feb, [facility] [address] [id number] [place] [address]- 2324 Feb, [facility] [address] [id number] [place] [address]- 2176 27 Jan, 2013 [facility] [address] [id number] [place] [address]- 4889 18 Jan, 2013 [facility] [address] [id number] [place] [address]- 0485 15 Jan, 2013 [facility] [address] [id number] [place] [address]- 5560 14 Jan, 2013 [facility] [address] [id number] [place] [address]- 4220 13 Jan, 2013 [facility] [place] [facility] [address] [id number] [place] [address]- 1567 12 Jan, 2013 [facility] [place] [facility] [address] [id number] [place] [address]- 6233 11 Jan, 2013 [facility] [address] [id number] [place] [address]- 2417 09 Jan, 2013 [facility] [place] [facility] [address] [id number] [place] [address]- 3228 08 Jan, 2013 [facility] [place] [facility] [address] [id number] [place] [address]- 1234 07 Jan, 2013 [facility] [place] [facility] [address] [id number] [place] [address] 2546 06 Jan, 2013 [facility] [place] [facility] [address] [id number] [place] [address]- 3907 17 Nov, 2012 [facility] [place] [facility] [address] [id number] [place] [address]- 2560 Oct, [facility] [place] [facility] [address] [id number] [place] [address]- 6585 Oct, [facility] [place] [facility] [address] [id number] [place] [address]- 7764 Oct, [facility] [place] [facility] [address] [id number] [place] [address]- 8729 Oct, [facility] [place] [facility] [address] [id number] [place] [address]- 9533 30 Sep, 2012 [facility] [place] [facility] [address] [id number] [place] [address]- 2825 30 Sep, 2012 [facility] [place] [facility] [address] [id number] [place] [address]- 2246 Sep, [facility] [place] [facility] [address] [id number] [place] [address]- 4116 16 Sep, 2012 [facility] [place] [facility] [address] [id number] [place] [address]- 9984 16 Sep, 2012 [facility] [place] [facility] [address] [id number] [place] [address]- 7167 16 Sep, 2012 [facility] [place] [facility] [address] [id number] [place] [address]- 8326 16 Sep, 2012 [facility] [place] [facility] [address] [id number] [place] [address]- 2280 Sep, [facility] [place] [facility] [address] [id number] [place] [address]- 2838 Sep, [facility] [place] [facility] [address] [id number] [place] [address]- 1169 Sep, [facility] [place] [facility] [address] [id number] [place] [address]- 4456 Sep, [facility] [place] [facility] [address] [id number] [place] [address]- 3647 Aug, [facility] [place] [facility] [address] [id number] [place] [address]- 4674 Aug, [facility] [place] [facility] [address] [id number] [place] [address]- 8626 Aug, [facility] [place] [facility] [address] [id number] [place] [address]- 2936 28 Jul, 2012 [facility] [place] [facility] [address] [id number] [place] [address]- 3840 25 Jul, 2012 [facility] [place] [facility] [address] [id number] [place] [address]- 9187 19 Jul, 2012 [facility] [place] [facility] [address] [id number] [place] [address]- 1456 17 Jul, 2012 [facility] [place] [facility] [address] [id number] [place] [address]- 2396 20 Jun, 2012 [facility] [place] [facility] [address] [id number] [place] [address]- 6540 16 Jun, 2012 [facility] [place] [facility] [address] [id number] [place] [address]- 7010 15 Jun, 2012 [facility] [place] [facility] [address] [facility] [id number] [place] [address]- 8960 15 Jun, 2012 [facility] [place] [facility] [address] [id number] [place] [address]- 0426 13 Jun, 2012 [facility] [place] [facility] [address] [id number] [place] [address]- 4896 18 Mar, 2012 [facility] [address] [id number] [place] [address]- 0146 04 Feb, 2012 [facility] [place] [facility] [address] [id number] [place] [address]- 8666 28 Jan, 2012 [facility] [place] [facility] [address] [id number] [place] [address]- 6185 27 Jan, 2012 [facility] [place] [facility] [address] [id number] [place] [address]- 1291 22 Jan, 2012 [facility] [address] [id number] [place] [address]- 2005 14 Jan, 2012 [facility] [place] [facility] [address] [id number] [place] [address] 14 Jan, 2012 [facility] [address] [id number] [place] [address] 14 Jan, 2012 [facility] [address] [id number] [place] [address] 28 Dec, 2011 [facility] [place] [facility] [address] [id number] [place] [address] 27 Dec, 2011 [facility] [address] [facility] [id number] [place] [address] 23 Dec, 2011 [facility] [place] [facility] [address] [id number] [place] [address] 21 Dec, 2011 [facility] [place] [facility] [address] [id number] [place] [address] 254 20 Dec, 2011 [facility] [place] [facility] [address] [id number] [place] [address] 19 Dec, 2011 [facility] [place] [facility] [address] [id number] [place] [address] 17 Dec, 2011 [facility] [place] [facility] [address] [id number] [place] [address] Dec, [facility] [id number] [address] Nov, [facility] [id number] [address] Oct, [facility] [id number] [address] Sep, [facility] [id number] [address] Sep, [facility] [id number] [address] Sep, [facility] [id number] [address] Sep, [facility] [id number] [address] Sep, [facility] [id number] [address] Sep, [facility] [id number] [address] Jan, [facility] [id number] [address] Apr, IMMUNIZATIONS No Known Immunizations SOCIAL HISTORY Never Assessed REASON FOR VISIT EMR-[facility] [place] CARE VITAL SIGNS MEDICATIONS Unknown [...] hysterectomy 12/2016 Surgical History Left ovary removed 12/2017 Hospitalization History [facility] Admission x4 2009 most recent admission Hospitalization History [facility]; overdose 2010 Hospitalization History child 11/29/2016
--- OUTSIDE RECORDS SUMMARY | 2019-03-04 16:33 | XMS REPORT ---
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 Name Role Phone Migration, Doctor Unavailable Unavailable PROBLEMS Type Condition ICD9-CM Code KGR12-AU Code Onset Dates Condition Status SNOMED Code Problem Generalized anxiety disorder F41.1 Active 01404474 Problem Bipolar disorder, current episode mixed, moderate F31.62 Active 281733955 Problem Acute non intractable tension-type headache G44.209 Active 993676972 Problem Constipation K59.00 Active 48840703 Problem Post traumatic stress disorder F43.10 Active 69333585 Problem Borderline personality disorder F60.3 Active 40156961 Problem Endometriosis N80.9 Active 160644439 Problem Acute right-sided low back pain with right-sided sciatica M54.41 Active 862976870 ALLERGIES No Information ENCOUNTERS Encounter Location Date Diagnosis [facility] [id number] [place] [address] 75358- 3046 Feb, [facility] [address] 29166- 2185 Feb, Bipolar disorder, current episode mixed, moderate F31.62 [facility] [id number] [place] [address] 70567 -9228 Jan, Dehydration E86.0 and Back muscle spasm M62.830 [facility] [id number] [place] [address] 62571- 4183 Jan, Bipolar disorder, current episode mixed, moderate F31.62 ; Post traumatic stress disorder F43.10 ; Borderline personality disorder F60.3 and 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 [facility] [id number] [place] [address] 83556 -0337 Jan, Cough R05 and Viral upper respiratory tract infection J06.9 [facility] [address] 26017- 9997 Jan, Bipolar disorder, current episode mixed, moderate F31.62 [place] [id number] [place] [address] 47285- 5935 08 Dec, 2018 Bipolar disorder, current episode mixed, moderate F31.62 [place] [id number] [place] [address] 63918- 0611 Nov, Bipolar disorder, current episode mixed, moderate F31.62 [facility] [id number] [place] [address] 40555 -1750 Oct, Sore throat J02.9 [facility] [place] [address] 37915 -8122 Oct, Abdominal pain R10.9 ; Low back pain M54.5 ; Left shoulder pain M25.512 and Constipation K59.00 [place] [id number] [place] [address] 92522- 3770 Oct, Bipolar disorder, current episode mixed, moderate F31.62 ; Post traumatic stress disorder F43.10 and Borderline personality disorder F60.3 [place] [id number] [place] [address] 56874- 7385 Sep, Bipolar disorder, current episode mixed, moderate F31.62 [place] [id number] [place] [address] 65818- 5563 Aug, Bipolar disorder, current episode mixed, moderate F31.62 [place] [id number] [place] [address] 75445- 2396 Jul, Thrombophlebitis I80.9 and Pelvic pain R10.2 [place] [id number] [place] [address] 53680- 4287 05 Jul, 2018 Bipolar disorder, current episode mixed, moderate F31.62 ; Post traumatic stress disorder F43.10 and Borderline personality disorder F60.3 [place] [id number] [place] [address] 97398- 8571 Jun, Bipolar disorder, current episode mixed, moderate F31.62 [facility] [id number] [place] [address] 11927- 9291 May, Palpitations R00.2 [facility] [id number] [place] [address] 59105- 4407 May, Palpitations R00.2 [place] [address] 30083- 3955 May, Palpitations R00.2 and Frequent bowel movements R19.4 [place] [id number] [place] [address] 67838- 8922 05 May, 2018 Bipolar disorder, current episode mixed, moderate F31.62 ; Post traumatic stress disorder F43.10 and Borderline personality disorder F60.3 [facility] [id number] [place] [address] [id number] Apr, Dental examination Z01.20 [facility] [id number] [address] 67036 -5356 Apr, [facility] [id number] [address] 47244 -2298 Apr, Tooth pain K08.89 [place] [id number] [address] 96119- 8496 15 Apr, 2018 Dental examination Z01.20 [place] [id number] [place] [address] 63036- 9400 06 Apr, 2018 Bipolar disorder, current episode mixed, moderate F31.62 ; Post traumatic stress disorder F43.10 and Borderline personality disorder F60.3 [facility] [id number] [place] [address] 26693 -5481 March, Abdominal pain R10.9 ; UTI symptoms R39.9 and Other microscopic hematuria R31.29 [place] [id number] [place] [address] 06679- 5861 March, [place] [id number] [place] [address] 50105- 9153 March, Bipolar disorder, current episode mixed, moderate F31.62 ; Post traumatic stress disorder F43.10 and Borderline personality disorder F60.3 [facility] [id number] [place] [address] 68791- 2259 Feb, Encounter for immunization Z23 [facility] [address] 655956- 9884 Feb, Bipolar disorder, current episode mixed, moderate F31.62 ; Post traumatic stress disorder F43.10 and Borderline personality disorder F60.3 [place] [id number] [place] [address] 98278- 3303 Feb, Bipolar disorder, current episode mixed, moderate F31.62 ; Post traumatic stress disorder F43.10 ; Borderline personality disorder F60.3 and Other nursing home (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 Z79.899 [place] [address] 95719- 5859 Jan, Encounter for immunization Z23 [facility] [id number] [address] 33850- 1136 Jan, [facility] [id number] [place] [address] 09085- 0388 Jan, Bipolar disorder, current episode mixed, moderate F31.62 [facility] [id number] [place] [address] 94456 -7126 Jan, Lumbar back pain M54.5 [facility] [id number] [address] 26533- 8447 Dec, Low back pain M54.5 [facility] [id number] [place] [address] 61081- 1805 Dec, Bipolar disorder, current episode mixed, moderate F31.62 [facility] [id number] [place] [address] 38598- 9163 Dec, Generalized anxiety disorder F41.1 and Bipolar disorder, current episode mixed, moderate F31.62 [facility] [id number] [place] [address] 33021 -0365 Nov, Acute non intractable tension-type headache G44.209 [place] [id number] [place] [address] 41267- 9244 Nov, Bipolar disorder, current episode mixed, moderate F31.62 ; Post traumatic stress disorder F43.10 and Borderline personality disorder F60.3 [place] [id number] [place] [address] 24195- 9429 Nov, Bipolar disorder, current episode mixed, moderate F31.62 [facility] [id number] [place] [address] 81638 -2424 Nov, Abdominal pain R10.9 ; History of PCOS Z87.42 ; History of endometriosis Z87.42 and Pelvic pain R10.2 [place] [id number] [place] [address] 88844- 4165 Nov, [facility] [id number] [address] 58919 -9587 Oct, History of PCOS Z87.42 ; History of endometriosis Z87.42 and Pain R52 [place] [id number] [place] [address] 13275- 6733 Oct, Bipolar disorder, current episode mixed, moderate F31.62 ; Post traumatic stress disorder F43.10 and Borderline personality disorder F60.3 [place] [id number] [place] [address] 33418- 2963 Oct, Bipolar disorder, current episode mixed, moderate F31.62 [place] [address] 80796- 4116 Sep, Bipolar disorder, current episode mixed, moderate F31.62 ; Post traumatic stress disorder F43.10 ; Borderline personality disorder F60.3 and 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 [place] [address] [address] 3884 17 Sep, 2017 Bipolar disorder, current episode mixed, moderate F31.62 [facility] [id number] [address] 32140 -8098 Sep, Endometriosis N80.9 and Acute right-sided low back pain with right-sided sciatica M54.41 [place] [id number] [place] [address] 00719- 6940 Aug, [place] [id number] [place] [address] 48638- 6806 Aug, Bipolar disorder, current episode mixed, moderate F31.62 ; Post traumatic stress disorder F43.10 and Borderline personality disorder F60.3 [place] [id number] [place] [address] 27422- 2663 11 Aug, 2017 Bipolar disorder, current episode mixed, moderate F31.62 ; Post traumatic stress disorder F43.10 and Borderline personality disorder F60.3 [place] [id number] [place] [address] 28056- 4706 13 Jul, 2017 Bipolar disorder, current episode mixed, moderate F31.62 ; Post traumatic stress disorder F43.10 and Borderline personality disorder F60.3 [facility] [id number] [place] [address] 90490 -8659 11 Jul, 2017 Pharyngitis, unspecified etiology J02.9 and Streptococcal pharyngitis J02.0 [facility] [id number] [place] [address] 09172- 2535 16 Jun, 2017 Bipolar disorder, current episode mixed, moderate F31.62 ; Post traumatic stress disorder F43.10 and Borderline personality disorder F60.3 [place] [id number] [place] [address] 96883- 8513 May, [place] [id number] [place] [address] 65374- 5158 May, [place] [id number] [address] 91581- 6757 May, Bipolar disorder, current episode mixed, moderate F31.62 and Generalized anxiety disorder F41.1 [place] [id number] [place] [address]- [address]208 March, Bipolar disorder, current episode mixed, moderate F31.62 and Generalized anxiety disorder F41.1 [place] [address] 08117- 4688 March, Pelvic pain R10.2 [place] [address] 05536- 2384 March, [place] [id number] [place] [address] 86986- 4011 Feb, Bipolar disorder, current episode mixed, moderate F31.62 and Generalized anxiety disorder F41.1 [place] [id number] [place] [address] 95587- 6231 Jan, [place] [id number] [address] 74288- 5866 Jan, Bipolar disorder, current episode mixed, moderate F31.62 [place] [id number] [address] 86878- 1526 Jan, Bipolar disorder, current episode mixed, moderate F31.62 [place] [id number] [address] 42279- 7010 Jan, Bilateral low back pain without sciatica M54.5 [facility] [id number] [place] [address] [id number] Jan, Dental caries K02.9 and Dental examination Z01.20 [facility] [id number] [place] [address] [id number] Jan, Encounter for dental examination and cleaning without abnormal findings Z01.20 [facility] [id number] [place] [address] 60250- 0167 Jan, Bipolar disorder, current episode mixed, moderate F31.62 and Generalized anxiety disorder F41.1 [facility] [id number] [address] 65460- 1299 Dec, [facility] [id number] [place] [address] 13278- 8117 Dec, Bipolar disorder, current episode mixed, moderate F31.62 and Generalized anxiety disorder F41.1 [place] [id number] [place] [address] 86593- 1286 Dec, Other fatigue R53.83 and Orthostatic hypotension I95.1 [facility] [address] [id number] Nov, Dental examination Z01.20 [facility] [id number] [address] 92627 -1663 Nov, Bronchitis J40 [place] [id number] [address] 01718- 2402 Oct, Generalized anxiety disorder F41.1 [place] [id number] [place] [address] 45129- 1512 14 Sep, 2016 Bipolar disorder, current episode mixed, moderate F31.62 and Generalized anxiety disorder F41.1 [place] [id number] [place] [address] 32921- 0966 02 Sep, 2016 Bipolar disorder, current episode mixed, moderate F31.62 and Generalized anxiety disorder F41.1 [facility] [id number] [place] [address] 87211 -2018 08 Jul, 2016 Upper respiratory tract infection, unspecified type J06.9 [place] [id number] [place] [address] 44372- 4390 Jun, Bipolar disorder, current episode mixed, moderate F31.62 and Generalized anxiety disorder F41.1 [place] [id number] [place] [address] 85932- 2965 Apr, [place] [address] [address]- 5446 Apr, Encounter for test, result positive Z32.01 [facility] [id number] [address] 53641- 7517 March, [facility] [id number] [place] [address] 41487- 2631 March, Bipolar disorder, current episode mixed, moderate F31.62 and Generalized anxiety disorder F41.1 [facility] [id number] [place] [address] 38096- 6001 March, Bipolar disorder, current episode mixed, moderate F31.62 and Generalized anxiety disorder F41.1 [facility] [id number] [address] 36184- 4069 March, [facility] [id number] [address] 12125- 3367 March, [facility] [id number] [address] 78581- 7533 Feb, [facility] [id number] [address] 62441- 9350 Feb, [facility] [id number] [place] [address] 25410- 8692 Feb, Bipolar disorder, current episode mixed, moderate F31.62 and Generalized anxiety disorder F41.1 [facility] [id number] [place] [address] 41513- 0606 Jan, Abdominal pain R10.9 [facility] [id number] [address] 07074- 3692 Jan, [facility] [id number] [address] 88776- 5052 Dec, Dental examination Z01.20 [facility] [id number] [place] [address] 65269- 1366 22 Feb, 2016 Dental examination Z01.20 and Dental caries K02.9 [place] [id number] [place] [address] 43992- 6847 15 Dec, 2015 Bipolar disorder, current episode mixed, moderate F31.62 and Generalized anxiety disorder F41.1 [place] [id number] [place] [address] 35141- 3083 15 Dec, 2015 [place] [address] 28945- 6051 Nov, Bipolar disorder, current episode mixed, moderate F31.62 ; Generalized anxiety disorder F41.1 and Seizure-like activity R56.9 [place] [id number] [place] [address] 82651- 3966 Oct, [place] [id number] [address] 60302- 5195 Oct, Bipolar disorder, current episode mixed, moderate F31.62 [place] [id number] [place] [address] 53496- 9705 14 Oct, 2015 Well woman exam Z01.419 [...] Tobacco use Z72.0 and Hot flashes N95.1 [place] [id number] [place] [address] 41138- 2095 09 Oct, 2015 Seizure-like activity R56.9 and Irregular periods N92.6 [place] [id number] [place] [address] 55043- 9063 07 Oct, 2015 Bipolar disorder, current episode mixed, moderate F31.62 ; Generalized anxiety disorder F41.1 and Underweight R63.6 [facility] [id number] [place] [address] 60812- 7698 Oct, [facility] [address] 96782- 3186 Oct, Generalized anxiety disorder F41.1 and Unspecified mood [ affective] disorder F39 [facility] [id number] [place] [address] 53348 -6155 Oct, Back pain M54.9 and Anxiety F41.9 [facility] [id number] [place] [address] 87450- 5331 Oct, [facility] [address] 91884 -3752 Sep, Arm pain, left M79.602 [facility] [address] 16526- 9620 Sep, [facility] [address] [id number] Sep, Dental examination Z01.20 and Dental caries K02.9 [facility] [id number] [place] [address] 39230- 0894 Sep, Generalized anxiety disorder F41.1 and Unspecified episodic mood disorder F39 [facility] [id number] [place] [address] 69406- 8812 Sep, Bilateral low back pain without sciatica M54.5 and Seizure- like activity R56.9 [facility] [id number] [place] [address] 96936- 6675 Aug, [facility] [address] 19007- 9906 Aug, [facility] [id number] [place] [address] 38941- 6058 Aug, [facility] [address] 15174- 2171 Aug, Visual changes H53.9 and Bilateral low back pain without sciatica M54.5 [facility] [id number] [place] [address] 77890- 2863 Jul, [facility] [id number] [place] [address] 05230- 3535 Jun, Bipolar I disorder, most recent episode (or current) mixed, moderate 296.62 ; Generalized anxiety disorder 300.02 and High risk medication use V58.69 [facility] [id number] [place] [address] 20892- 6234 Jun, [facility] [id number] [place] [address] 30298- 4483 May, [facility] [id number] [place] [address] 88456- 6826 May, Bipolar I disorder, most recent episode (or current) mixed, moderate 296.62 and Generalized anxiety disorder 300.02 [facility] [id number] [place] [address] [id number] May, Dental examination V72.2 [facility] [id number] [place] [address] 33842- 3139 March, Bipolar I disorder, most recent episode (or current) mixed, moderate 296.62 and Generalized anxiety disorder 300.02 [facility] [id number] [place] [address] 06902- 9214 March, [facility] [id number] [address] 21770- 8369 March, [facility] [id number] [place] [address] 13653- 2065 March, Underweight 783.22 ; Hand pain, right 729.5 and Reflux gastritis 535.40 [facility] [id number] [place] [address] 40479- 1264 14 Feb, 2015 [facility] [address] 84910- 7485 13 Feb, 2015 [facility] [place] [facility] [address] [id number] [place] [address]- 2702 18 Jan, 2015 [facility] [place] [facility] [address] [id number] [place] [address]- 4576 18 Jan, 2015 [facility] [place] [facility] [address] [id number] [place] [address]- 9727 16 Jan, 2015 [facility] [place] [facility] [address] [id number] [place] [address]- 2926 16 Jan, 2015 [facility] [place] [facility] [address] [id number] [place] [address]- 3126 Jan, [facility] [place] [facility] [address] [id number] [place] [address]- 4358 Jan, [facility] [place] [facility] [address] [id number] [place] [address]- 9809 05 Jan, 2015 [facility] [place] [facility] [address] [id number] [place] [address] 05 Jan, 2015 [facility] [place] [facility] [address] [id number] [place] [address] Jan, [facility] [place] [facility] [address] [id number] [place] [address] Jan, [facility] [place] [facility] [address] [id number] [place] [address] Jan, [facility] [place] [facility] [address] [id number] [address] Jan, [facility] [place] [facility] [address] [id number] [place] [address] Dec, [facility] [place] [facility] [address] [id number] [place] [address] Dec, [facility] [place] [facility] [address] [id number] [place] [address] Dec, [facility] [place] [facility] [address] [id number] [place] [address] 19 Dec, 2014 [facility] [place] [facility] [address] [id number] [place] [address] 18 Dec, 2014 [facility] [place] [facility] [address] [address] [id number] [place] [address] 17 Dec, 2014 [facility] [place] [facility] [address] [facility] [id number] [place] [address]6 17 Dec, 2014 [facility] [place] [facility] [address] [id number] [place] [address] 2549 16 Dec, 2014 [facility] [place] [facility] [address] [id number] [place] [address] 9199 16 Dec, 2014 [facility] [place] [facility] [address] [facility] [id number] [place] [address] 2240 05 Dec, 2014 [facility] [place] [facility] [address] [facility] [id number] [place] [address]- 9198 05 Dec, 2014 [facility] [place] [facility] [address] [facility] [id number] [place] [address]- 8396 05 Dec, 2014 [facility] [place] [facility] [address] [facility] [id number] [place] [address]- 4522 05 Dec, 2014 [facility] [place] [facility] [address] [facility] [id number] [place] [address]- 7734 Dec, 2014 [facility] [place] [facility] [address] [facility] [id number] [address] Dec, 2014 [facility] [place] [facility] [address] [facility] [id number] [place] [address]- 9355 Dec, 2014 [facility] [place] [facility] [address] [facility] [id number] [address] 29[address] 04 Dec, 2014 [facility] [place] [facility] [address] [facility] [id number] [place] [address]- 1278 03 Dec, 2014 [facility] [place] [facility] [address] [facility] [id number] [place] [address]- 2546 Dec, [facility] [place] [facility] [address] [id number] [place] [address]- 2546 Nov, [facility] [place] [facility] [address] [id number] [place] [address]- 2546 Nov, [facility] [place] [facility] [address] [id number] [place] [address]- 2546 Nov, [facility] [place] [facility] [address] [id number] [place] [address]- 2546 Nov, [facility] [place] [facility] [address] [id number] [place] [address]- 1086 Nov, [facility] [place] [facility] [address] [id number] [place] [address]- 2546 Nov, [facility] [place] [facility] [id number] [place] [id number] Nov, [facility] [place] [facility] [address] [id number] [place] [address]- 2546 Nov, [facility] [place] [facility] [address] [id number] [place] [address]- 2546 Nov, [facility] [place] [facility] [id number] [id number] Nov, [facility] [place] [facility] [address] [id number] [place] [address]- 2546 Nov, [facility] [place] [facility] [address] [id number] [address]- 25[address] Nov, [facility] [place] [facility] [address] [id number] [place] [address]- 2546 Oct, [facility] [place] [facility] [address] [id number] [place] [address]- 2546 Oct, [facility] [place] [facility] [address] [id number] [place] [address]- 2546 Oct, [facility] [place] [facility] [address] [id number] [place] [address]- 4219 30 Oct, 2014 [facility] [place] [facility] [address] [id number] [place] [address]- 7164 Oct, [facility] [place] [facility] [address] [id number] [place] [address]- 8246 Oct, [facility] [place] [facility] [address] [id number] [place] [address]- 7231 Oct, [facility] [place] [facility] [address] [id number] [place] [address]- 1101 Oct, [facility] [place] [facility] [address] [id number] [place] [address] Oct, [facility] [place] [facility] [address] [id number] [place] [address] Oct, [facility] [place] [facility] [address] [id number] [place] [address]- 8521 Oct, [facility] [place] [facility] [address] [id number] [place] [address]- 1512 Oct, [facility] [place] [facility] [address] [id number] [place] [address]- 0074 Sep, [facility] [place] [facility] [address] [id number] [place] [address] Sep, [facility] [place] [facility] [address] [id number] [place] [address]- 7442 Sep, [facility] [place] [facility] [address] [id number] [place] [address]- 5322 Sep, [facility] [place] [facility] [address] [id number] [place] [address]- 3432 Sep, [facility] [place] [facility] [address] [id number] [place] [address]- 1541 Sep, [facility] [place] [facility] [address] [id number] [place] [address]- 4556 Sep, [facility] [place] [facility] [address] [id number] [place] [address]- 2556 Sep, [facility] [place] [facility] [address] [id number] [place] [address]- 8773 Aug, [facility] [place] [facility] [address] [id number] [place] [address]- 6161 Aug, [facility] [place] [facility] [address] [id number] [place] [address]- 5711 Aug, [facility] [place] [facility] [address] [id number] [place] [address]- 9641 Aug, [facility] [place] [facility] [address] [id number] [place] [address]- 0880 Aug, [facility] [place] [facility] [address] [id number] [place] [address]- 7319 Aug, [facility] [place] [facility] [address] [id number][place] [address]- 1667 Aug, [facility] [place] [facility] [address] [id number] [place] [address]- 8993 Aug, [facility] [place] [facility] [address] [id number][place] [address]- 1284 Aug, [facility] [place] [facility] [address] [id number], [place] [address]- 6894 Aug, [facility] [place] [facility] [address] [id number][place] [address]- 1174 Aug, [facility] [place] [facility] [address] [id number][place] [address]- 1750 Aug, [facility] [place] [facility] [address] [id number], [place] [address]- 8448 Aug, [facility] [place] [facility] [address] [id number], [place] [address]- 4284 Jul, [facility] [place] [facility] [address] [id number] [place] [address]- 6636 Jul, [facility] [place] [facility] [address] [id number] [place] [address]- 6638 Jul, [facility] [place] [facility] [address] [id number] [place] [address]- 6836 Jul, [facility] [place] [facility] [address] [id number] [place] [address]- 2391 Jun, [facility] [place] [facility] [address] [id number] [place] [address]- 7080 Jun, [facility] [place] [facility] [address] [id number] [place] [address]- 4364 Jun, [facility] [place] [facility] [address] [id number] [place] [address]- 1035 Jun, [facility] [place] [facility] [address] [id number] [place] [address]- 5703 Jun, [facility] [place] [facility] [address] [id number] [place] [address]- 7744 Jun, [facility] [place] [facility] [address] [id number] [place] [address]- 5019 May, [facility] [place] [facility] [address] [id number] [place] [address]- 3263 May, [facility] [place] [facility] [address] [id number] [place] [address]- 4783 May, [facility] [place] [facility] [address] [id number] [place] [address]- 1229 May, [facility] [place] [facility] [address] [id number] [place] [address]- 8971 Apr, [facility] [place] [facility] [address] [id number] [place] [address]- 5040 Apr, [facility] [place] [facility] [address] [id number] [place] [address]- 3598 March, [facility] [place] [facility] [address] [id number] [place] [address]- 4452 March, [facility] [place] [facility] [address] [id number] [place] [address]- 0964 March, [facility] [place] [facility] [address] [id number] [place] [address]- 3957 March, [facility] [place] [facility] [address] [id number] [place] [address]- 8889 March, [facility] [place] [facility] [address] [id number] [place] [address]- 2402 March, [facility] [place] [facility] [address] [id number] [place] [address]- 7663 Feb, [facility] [place] [facility] [address] [id number] [place] [address]- 2014 Feb, [facility] [place] [facility] [address] [id number] [place] [address]- 5150 Dec, [facility] [place] [facility] [address] [id number] [place] [address]- 5021 Dec, [facility] [place] [facility] [address] [id number] [place] [address]- 1225 Nov, [facility] [place] [facility] [address] [id number] [place] [address]- 2362 Nov, [facility] [place] [facility] [address] [id number] [place] [address]- 5069 Sep, [facility] [place] [facility] [address] [id number] [place] [address]- 8445 Sep, [facility] [place] [facility] [address] [id number] [place] [address]- 1995 Sep, [facility] [place] [facility] [address] [id number] [place] [address]- 4694 Sep, [facility] [place] [facility] [address] [id number][place] [address]- 1405 Sep, [facility] [place] [facility] [address] [id number] [place] [address]- 3459 Sep, [facility] [place] [facility] [address] [id number] [place] [address]- 9962 Sep, [facility] [place] [facility] [address] [id number] [place] [address]- 1758 Aug, [facility] [place] [facility] [address] [id number] [place] [address]- 0602 Aug, [facility] [place] [facility] [address] [id number] [place] Aug, [facility] [place] [facility] [address] [id number] [place] [address]- 6757 Aug, [facility] [place] [facility] [address] [id number] [place] [address]- 8590 Aug, [facility] [place] [facility] [address] [id number] [place] [address]- 2680 Aug, [facility] [place] [facility] [address] [id number] [place] [address]- 1687 Jul, [facility] [place] [facility] [address] [id number] [place] [address]- 6400 Jul, [facility] [place] [facility] [address] [id number][place] [address]- 6589 16 Jul, 2013 [facility] [place] [facility] [address] [id number][place] [address]- 9288 13 Jul, 2013 [facility] [place] [facility] [address] [id number] [place] [address]- 6941 Jun, [facility] [place] [facility] [address] [id number] [place] [address]- 7326 Jun, [facility] [place] [facility] [address] [id number] [place] [address]- 1083 Jun, [facility] [place] [facility] [address] [id number] [place] [address]- 7384 Jun, [facility] [address] [id number] [place] [address]- 7658 Jun, [facility] [place] [facility] [address] [id number] [place] [address]- 5596 Jun, [facility] [place] [facility] [address] [id number] [place] [address]- 0635 Jun, [facility] [place] [facility] [address] [id number] [place] [address]- 3019 May, [facility] [place] [facility] [address] [id number] [place] [address]- 3211 May, [facility] [place] [facility] [address] [id number] [place] [address]- 5696 May, [facility] [place] [facility] [address] [id number] [place] [address]- 3815 May, [facility] [place] [facility] [address] [id number] [place] [address]- 6804 May, [facility] [place] [facility] [address] [id number] [place] [address]- 1752 May, [facility] [place] [facility] [address] [id number] [place] [address]- 6185 May, [facility] [place] [facility] [address] [id number] [place] [address]- 3949 Apr, [facility] [place] [facility] [address] [id number] [place] [address]- 9383 Apr, [facility] [place] [facility] [address] [id number] [place] [address]- 5256 Apr, [facility] [place] [facility] [address] [id number] [place] [address]- 7651 Apr, [facility] [place] [facility] [address] [id number] [place] [address]- 1352 Apr, [facility] [place] [facility] [address] [id number] [place] [address]- 6535 18 Apr, 2013 [facility] [place] [facility] [address] [id number] [place] [address]- 3866 18 Apr, 2013 [facility] [place] [facility] [address] [id number] [place] [address]- 6001 18 Apr, 2013 [facility] [place] [facility] [address] [id number] [place] [address]- 1867 17 Apr, 2013 [facility] [place] [facility] [address] [id number] [place] [address]- 6779 14 Apr, 2013 [facility] [place] [facility] [address] [id number] [place] [address]- 6081 14 Apr, 2013 [facility] [place] [facility] [address] [id number] [place] [address]- 5419 11 Apr, 2013 [facility] [place] [facility] [address] [id number] [place] [address]- 1010 10 Apr, 2013 [facility] [place] [facility] [address] [id number] [place] [address]- 4595 09 Apr, 2013 [facility] [place] [facility] [address] [id number][place] [address]- 0204 07 Apr, 2013 [facility] [place] [facility] [address] [id number][place] [address]- 6186 06 Apr, 2013 [facility] [place] [facility] [address] [id number][place] [address]- 1637 06 Apr, 2013 [facility] [place] [facility] [address] [id number] [place] [address]- 0848 05 Apr, 2013 [facility] [place] [facility] [address] [id number] [address]- 6509 03 Apr, 2013 [facility] [place] [facility] [address] [id number] [place] [address]- 5191 March, [facility] [place] [facility] [address] [id number] [place] [address]- 5500 March, [facility] [address] [id number] [place] [address]- 7150 March, [facility] [address] [id number] [place] [address]- 3606 March, [facility] [address] [id number] [place] [address]- 0902 March, [facility] [address] [id number] [place] [address]- 3109 March, [facility] [address] [id number] [place] [address]- 0897 March, [facility] [address] [id number] [place] [address]- 9144 Feb, [facility] [address] [id number] [place] [address]- 4506 Feb, [facility] [address] [id number] [place] [address]- 5704 27 Jan, 2013 [facility] [address] [id number] [place] [address]- 4549 18 Jan, 2013 [facility] [address] [id number] [place] [address]- 6038 15 Jan, 2013 [facility] [address] [id number] [place] [address]- 3992 14 Jan, 2013 [facility] [address] [id number] [place] [address]- 7339 13 Jan, 2013 [facility] [place] [facility] [address] [id number] [place] [address]- 3855 12 Jan, 2013 [facility] [place] [facility] [address] [id number] [place] [address]- 7913 11 Jan, 2013 [facility] [address] [id number] [place] [address]- 4524 09 Jan, 2013 [facility] [place] [facility] [address] [id number] [place] [address]- 3595 08 Jan, 2013 [facility] [place] [facility] [address] [id number] [place] [address]- 1108 07 Jan, 2013 [facility] [place] [facility] [address] [id number] [place] [address] 2546 06 Jan, 2013 [facility] [place] [facility] [address] [id number] [place] [address]- 4428 17 Nov, 2012 [facility] [place] [facility] [address] [id number] [place] [address]- 0766 Oct, [facility] [place] [facility] [address] [id number] [place] [address]- 3592 Oct, [facility] [place] [facility] [address] [id number] [place] [address]- 5035 Oct, [facility] [place] [facility] [address] [id number] [place] [address]- 5993 Oct, [facility] [place] [facility] [address] [id number] [place] [address]- 3494 30 Sep, 2012 [facility] [place] [facility] [address] [id number] [place] [address]- 5090 30 Sep, 2012 [facility] [place] [facility] [address] [id number] [place] [address]- 2207 Sep, [facility] [place] [facility] [address] [id number] [place] [address]- 1702 16 Sep, 2012 [facility] [place] [facility] [address] [id number] [place] [address]- 0132 16 Sep, 2012 [facility] [place] [facility] [address] [id number] [place] [address]- 8780 16 Sep, 2012 [facility] [place] [facility] [address] [id number] [place] [address]- 2751 16 Sep, 2012 [facility] [place] [facility] [address] [id number] [place] [address]- 1409 Sep, [facility] [place] [facility] [address] [id number] [place] [address]- 1400 Sep, [facility] [place] [facility] [address] [id number] [place] [address]- 8350 Sep, [facility] [place] [facility] [address] [id number] [place] [address]- 6146 Sep, [facility] [place] [facility] [address] [id number] [place] [address]- 0732 Aug, [facility] [place] [facility] [address] [id number] [place] [address]- 5862 Aug, [facility] [place] [facility] [address] [id number] [place] [address]- 6592 Aug, [facility] [place] [facility] [address] [id number] [place] [address]- 5215 28 Jul, 2012 [facility] [place] [facility] [address] [id number] [place] [address]- 8103 25 Jul, 2012 [facility] [place] [facility] [address] [id number] [place] [address]- 7094 19 Jul, 2012 [facility] [place] [facility] [address] [id number] [place] [address]- 5053 17 Jul, 2012 [facility] [place] [facility] [address] [id number] [address]- 4479 20 Jun, 2012 [facility] [place] [facility] [address] [id number][place] [address]- 7920 16 Jun, 2012 [facility] [place] [facility] [address] [id number] [place] [address]- 8491 15 Jun, 2012 [facility] [place] [facility] [address] [facility] [id number] [place] [address]- 9151 15 Jun, 2012 [facility] [place] [facility] [address] [id number] [place] [address]- 5255 13 Jun, 2012 [facility] [place] [facility] [address] [id number] [place] [address] 18 Mar, 2012 [facility] [address] [id number] [place] [address] 04 Feb, 2012 [facility] [place] [facility] [address] [id number] [place] [address] 28 Jan, 2012 [facility] [place] [facility] [address] [id number] [place] [address] 27 Jan, 2012 [facility] [place] [facility] [address] [id number] [place] [address] 22 Jan, 2012 [facility] [address] [id number] [place] [address] 14 Jan, 2012 [facility] [place] [facility] [address] [id number] [place] [address] 14 Jan, 2012 [facility] [address] [id number] [place] [address] 14 Jan, 2012 [facility] [address] [id number] [place] [address] 28 Dec, 2011 [facility] [place] [facility] [address] [id number] [place] [address] 27 Dec, 2011 [facility] [address] [facility] [id number] [place] [address] 23 Dec, 2011 [facility] [place] [facility] [address] [id number] [place] [address] 21 Dec, 2011 [facility] [place] [facility] [address] [id number] [place] [address] 20 Dec, 2011 [facility] [place] [facility] [address] [id number] [place] [address] 19 Dec, 2011 [facility] [place] [facility] [address] [id number] [place] [address]46 17 Dec, 2011 [facility] [place] [facility] [address] [id number] [place] [address] Dec, [facility] [address] [id number] [address] Nov, [facility] [id number] [address] Oct, [facility] [id number] [address] Sep, [facility] [id number] [address] Sep, [facility] [id number] [address] Sep, [facility] [id number] [address] Sep, [facility] [id number] [address] Sep, [facility] [id number] [address] Sep, [facility] [id number] [address] Jan, [facility] [address] [id number] [address] Apr, IMMUNIZATIONS No Known Immunizations SOCIAL HISTORY Never Assessed REASON FOR VISIT EMR-[facility] PLAN OF CARE VITAL SIGNS MEDICATIONS Unknown [...]
--- OUTSIDE RECORDS SUMMARY | 2019-03-04 16:33 | XMS REPORT ---
Author Author Migration, Doctor Organization [facility] Address Unknown Phone Unavailable Care Team Providers Care [employer] Name Role Phone Migration, Doctor Unavailable Unavailable PROBLEMS Type Condition ICD9-CM Code [id number] Code Onset Dates Condition Status SNOMED Code Problem Generalized anxiety disorder F41.1 Active 16858144 Problem Bipolar disorder, current episode mixed, moderate F31.62 Active 965617357 Problem Acute non intractable tension-type headache G44.209 Active 448605594 Problem Constipation K59.00 Active 51325305 Problem Post traumatic stress disorder F43.10 Active 07790120 Problem Borderline personality disorder F60.3 Active 57420159 Problem Endometriosis N80.9 Active 577895342 Problem Acute right-sided low back pain with right-sided sciatica M54.41 Active [id number] ALLERGIES No Information ENCOUNTERS Encounter Location Date Diagnosis [facility] [id number] [place] [address] 59431- 7518 Feb, [facility] [address] 38030- 9023 Feb, Bipolar disorder, current episode mixed, moderate F31.62 [facility] [id number] [place] [address] 92178 -0471 Jan, Dehydration E86.0 and Back muscle spasm M62.830 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 [address] 48988- 5168 Jan, Bipolar disorder, current episode mixed, moderate F31.62 [place] [id number] [place] [address] 91069- 2222 08 Dec, 2018 Bipolar disorder, current episode mixed, moderate F31.62 [facility] [facility] [id number] [place] [address] 17637- 6626 Nov, Bipolar disorder, current episode mixed, moderate F31.62 [facility] [id number] [place] [address] 32683 -0908 Oct, Sore throat J02.9 [facility] [place] [address] 58456 -1841 Oct, Abdominal pain R10.9 ; Low back pain M54.5 ; Left shoulder pain M25.512 and Constipation K59.00 [place] [id number] [place] [address] 86311- 7888 Oct, Bipolar disorder, current episode mixed, moderate F31.62 ; Post traumatic stress disorder F43.10 and Borderline personality disorder F60.3 [place] [id number] [place] [address] 92219- 7087 Sep, Bipolar disorder, current episode mixed, moderate F31.62 [place] [id number] [place] [address] 01483- 0961 Aug, Bipolar disorder, current episode mixed, moderate F31.62 [place] [id number] [place] [address] 43300- 5277 Jul, Thrombophlebitis I80.9 and Pelvic pain R10.2 [place] [id number] [place] [address] 16934- 4544 05 Jul, 2018 Bipolar disorder, current episode mixed, moderate F31.62 ; Post traumatic stress disorder F43.10 and Borderline personality disorder F60.3 [place] [id number] [place] [address] 68034- 3803 Jun, Bipolar disorder, current episode mixed, moderate F31.62 [facility] [id number] [place] [address] 48759- 2323 May, Palpitations R00.2 [facility] [id number] [place] [address] 65373- 5126 May, Palpitations R00.2 [facility] [address] 03301- 4744 May, Palpitations R00.2 and Frequent bowel movements R19.4 [place] [id number] [place] [address] 58563- 4792 05 May, 2018 Bipolar disorder, current episode mixed, moderate F31.62 ; Post traumatic stress disorder F43.10 and Borderline personality disorder F60.3 [facility] [id number] [place] [address] [phone] Apr, Dental examination Z01.20 [facility] [id number] [place] [address] 55525 -2914 Apr, [facility] [id number] [place] [address] 54664- 9017 Apr, Dental examination Z01.20 [facility] [id number] [place] [address] 74003 -1695 15 Apr, 2018 Tooth pain K08.89 [facility] [id number] [place] [address] 95019- 5663 06 Apr, 2018 Bipolar disorder, current episode mixed, moderate F31.62 ; Post traumatic stress disorder F43.10 and Borderline personality disorder F60.3 [facility] [id number] [place] [address] 90313 -9459 March, Abdominal pain R10.9 ; UTI symptoms R39.9 and Other microscopic hematuria R31.29 [place] [id number] [place] [address] 92596- 8433 March, [place] [id number] [place] [address] 55362- 3307 March, Bipolar disorder, current episode mixed, moderate F31.62 ; Post traumatic stress disorder F43.10 and Borderline personality disorder F60.3 [facility] [id number] [place] [address] 25989- 4013 Feb, Encounter for immunization Z23 [facility] [address] 092345- 1280 Feb, Bipolar disorder, current episode mixed, moderate F31.62 ; Post traumatic stress disorder F43.10 and Borderline personality disorder F60.3 [place] [id number] [place] [address] 20484- 9390 Feb, Bipolar disorder, current episode mixed, moderate F31.62 ; Post traumatic stress disorder F43.10 ; Borderline personality disorder F60.3 and Other penitentiary (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 Z79.899 [place] [address] 96104- 9305 Jan, Encounter for immunization Z23 [facility] [id number] [place] [address] 83810- 3426 Jan, [facility] [id number] [place] [address] 56795- 5339 Jan, Bipolar disorder, current episode mixed, moderate F31.62 [facility] [id number] [place] [address] 19053 -3750 Jan, Lumbar back pain M54.5 [facility] [id number] [place] [address] 61164- 5262 Dec, Low back pain M54.5 [facility] [id number] [place] [address] 09067- 9735 Dec, Bipolar disorder, current episode mixed, moderate F31.62 [facility] [id number] [place] [address] 37037- 4542 Dec, Generalized anxiety disorder F41.1 and Bipolar disorder, current episode mixed, moderate F31.62 [facility] [id number] [place] [address] 88532 -4294 Nov, Acute non intractable tension-type headache G44.209 [place] [id number] [place] [address] 30336- 8752 Nov, Bipolar disorder, current episode mixed, moderate F31.62 ; Post traumatic stress disorder F43.10 and Borderline personality disorder F60.3 [place] [id number] [place] [address] 65682- 6914 Nov, Bipolar disorder, current episode mixed, moderate F31.62 [facility] [id number] [place] [address] 27246 -4864 Nov, Abdominal pain R10.9 ; History of PCOS Z87.42 ; History of endometriosis Z87.42 and Pelvic pain R10.2 [place] [id number] [place] [address] 38662- 2455 Nov, [facility] [id number] [place] [address] 14453 -9090 Oct, History of PCOS Z87.42 ; History of endometriosis Z87.42 and Pain R52 [place] [id number] [place] [address] 17624- 1961 Oct, Bipolar disorder, current episode mixed, moderate F31.62 ; Post traumatic stress disorder F43.10 and Borderline personality disorder F60.3 [place] [address] [place] [address] 92398- 3188 Oct, Bipolar disorder, current episode mixed, moderate F31.62 [place] [address] 20466- 3789 Sep, Bipolar disorder, current episode mixed, moderate F31.62 ; Post traumatic stress disorder F43.10 ; Borderline personality disorder F60.3 and 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 [place] [address] [address] 0360 17 Sep, 2017 Bipolar disorder, current episode mixed, moderate F31.62 [facility] [id number] [place] [address] 62697 -2870 Sep, Endometriosis N80.9 and Acute right-sided low back pain with right-sided sciatica M54.41 [place] [id number] [place] [address] 53344- 9093 Aug, [place] [id number] [place] [address] 22947- 3660 Aug, Bipolar disorder, current episode mixed, moderate F31.62 ; Post traumatic stress disorder F43.10 and Borderline personality disorder F60.3 [place] [id number] [place] [address] 78633- 9880 11 Aug, 2017 Bipolar disorder, current episode mixed, moderate F31.62 ; Post traumatic stress disorder F43.10 and Borderline personality disorder F60.3 [place] [address] [place] [address] 53402- 0169 13 Jul, 2017 Bipolar disorder, current episode mixed, moderate F31.62 ; Post traumatic stress disorder F43.10 and Borderline personality disorder F60.3 [facility] [address] [place] [address] 72086 -4693 11 Jul, 2017 Pharyngitis, unspecified etiology J02.9 and Streptococcal pharyngitis J02.0 [facility] [address] [place] [address] 48720- 4963 16 Jun, 2017 Bipolar disorder, current episode mixed, moderate F31.62 ; Post traumatic stress disorder F43.10 and Borderline personality disorder F60.3 [place] [address] [place] [address] 83376- 3632 May, [place] [address] [place] [address] 01022- 7794 May, [place] [id number] [place] [address] 35134- 9337 May, Bipolar disorder, current episode mixed, moderate F31.62 and Generalized anxiety disorder F41.1 [place] [id number] [place] [address]29 March, Bipolar disorder, current episode mixed, moderate F31.62 and Generalized anxiety disorder F41.1 [place] [address] 92905- 8752 March, Pelvic pain R10.2 [place] [address] 33231- 0154 March, [place] [id number] [place] [address] 20136- 7126 Feb, Bipolar disorder, current episode mixed, moderate F31.62 and Generalized anxiety disorder F41.1 [place] [id number] [place] [address] 63403- 3438 Jan, [place] [id number] [place] [address] 85479- 7366 Jan, Bipolar disorder, current episode mixed, moderate F31.62 [place] [id number] [place] [address] 92530- 0831 Jan, Bipolar disorder, current episode mixed, moderate F31.62 [place] [id number] [place] [address] 11329- 0063 Jan, Bilateral low back pain without sciatica M54.5 [facility] [id number] [place] [address] [phone] Jan, Dental caries K02.9 and Dental examination Z01.20 [facility] [id number] [place] [address] [id number] Jan, Encounter for dental examination and cleaning without abnormal findings Z01.20 [facility] [id number] [place] [address] 47952- 4344 Jan, Bipolar disorder, current episode mixed, moderate F31.62 and Generalized anxiety disorder F41.1 [facility] [id number] [place] [address] 30274- 2249 Dec, [facility] [id number] [place] [address] 05714- 9271 Dec, Bipolar disorder, current episode mixed, moderate F31.62 and Generalized anxiety disorder F41.1 [place] [id number] [place] [address] 51449- 2890 Dec, Other fatigue R53.83 and Orthostatic hypotension I95.1 [facility] [address] [id number] Nov, Dental examination Z01.20 [facility] [id number] [place] [address] 16110 -9894 Nov, Bronchitis J40 [place] [id number] [place] [address] 02794- 2940 Oct, Generalized anxiety disorder F41.1 [place] [id number] [place] [address] 17818- 1543 14 Sep, 2016 Bipolar disorder, current episode mixed, moderate F31.62 and Generalized anxiety disorder F41.1 [place] [id number] [place] [address] 59577- 4368 02 Sep, 2016 Bipolar disorder, current episode mixed, moderate F31.62 and Generalized anxiety disorder F41.1 [facility] [address] [place] [address] 65284 -4868 08 Jul, 2016 Upper respiratory tract infection, unspecified type J06.9 [place] [id number] [place] [address] 13899- 3201 Jun, Bipolar disorder, current episode mixed, moderate F31.62 and Generalized anxiety disorder F41.1 [place] [id number] [place] [address] 53428- 8063 Apr, [place] [address] [address]- 1485 Apr, Encounter for test, result positive Z32.01 [facility] [id number] [place] [address] 19284- 7769 March, [facility] [id number] [place] [address] 21694- 7984 March, Bipolar disorder, current episode mixed, moderate F31.62 and Generalized anxiety disorder F41.1 [facility] [id number] [place] [address] 67807- 9063 March, Bipolar disorder, current episode mixed, moderate F31.62 and Generalized anxiety disorder F41.1 [facility] [id number] [place] [address] 38555- 2694 March, [facility] [id number] [place] [address] 34297- 1060 March, [facility] [id number] [place] [address] 23029- 3886 Feb, [facility] [id number] [place] [address] 57151- 5219 Feb, [facility] [id number] [place] [address] 41190- 4247 Feb, Bipolar disorder, current episode mixed, moderate F31.62 and Generalized anxiety disorder F41.1 [facility] [id number] [place] [address] 64234- 7863 Jan, Abdominal pain R10.9 [facility] [id number] [place] [address] 92476- 8077 Jan, [facility] [id number] [place] [address] 75655- 6017 Dec, Dental examination Z01.20 [facility] [address] [place] [address] 97054- 4152 22 Feb, 2016 Dental examination Z01.20 and Dental caries K02.9 [place] [address] [place] [address] 26394- 5603 15 Dec, 2015 Bipolar disorder, current episode mixed, moderate F31.62 and Generalized anxiety disorder F41.1 [place] [address] [place] [address] 06409- 2724 15 Dec, 2015 [place] [address] 15652- 7811 Nov, Bipolar disorder, current episode mixed, moderate F31.62 ; Generalized anxiety disorder F41.1 and Seizure-like activity R56.9 [place] [id number] [place] [address] 80591- 1022 Oct, [place] [id number] [place] [address] 65387- 6382 Oct, Bipolar disorder, current episode mixed, moderate F31.62 [place] [id number] [place] [address] 69154- 1415 14 Oct, 2015 Well woman exam Z01.419 [...] Z72.0 and Hot flashes N95.1 [place] [address] [place] [address] 43261- 9963 09 Oct, 2015 Seizure-like activity R56.9 and Irregular periods N92.6 [place] [address] [place] [address] 13857- 2276 07 Oct, 2015 Bipolar disorder, current episode mixed, moderate F31.62 ; Generalized anxiety disorder F41.1 and Underweight R63.6 [facility] [address] [place] [address] 60337- 1879 Oct, [facility] [address] 40329- 0732 Oct, Generalized anxiety disorder F41.1 and Unspecified mood [ affective] disorder F39 [facility] [id number] [place] [address] 72768 -5096 Oct, Back pain M54.9 and Anxiety F41.9 [facility] [id number] [place] [address] 04361- 3407 Oct, [facility] [address] 34559 -9849 Sep, Arm pain, left M79.602 [facility] [address] 31167- 1908 Sep, [facility] [address] [id number] Sep, Dental examination Z01.20 and Dental caries K02.9 [facility] [id number] [place] [address] 84403- 2567 Sep, Generalized anxiety disorder F41.1 and Unspecified episodic mood disorder F39 [facility] [id number] [place] [address] 54394- 3890 Sep, Bilateral low back pain without sciatica M54.5 and Seizure- like activity R56.9 [facility] [id number] [place] [address] 70499- 1935 Aug, [facility] [address] 28635- 4453 Aug, [facility] [id number] [place] [address] 14676- 3713 Aug, [facility] [address] 27713- 2261 Aug, Visual changes H53.9 and Bilateral low back pain without sciatica M54.5 [facility] [address] [place] [address] 53267- 9234 Jul, [facility] [id number] [place] [address] 90142- 7813 Jun, Bipolar I disorder, most recent episode (or current) mixed, moderate 296.62 ; Generalized anxiety disorder 300.02 and High risk medication use V58.69 [facility] [id number] [place] [address] 93225- 9474 Jun, [facility] [id number] [place] [address] 39458- 1327 May, [facility] [id number] [place] [address] 54601- 9877 May, Bipolar I disorder, most recent episode (or current) mixed, moderate 296.62 and Generalized anxiety disorder 300.02 [facility] [id number] [place] [address] [id number] May, Dental examination V72.2 [facility] [id number] [place] [address] 49937- 4382 March, Bipolar I disorder, most recent episode (or current) mixed, moderate 296.62 and Generalized anxiety disorder 300.02 [facility] [id number] [place] [address] 05963- 0704 March, [facility] [id number] [place] [address] 06994- 2795 March, [facility] [id number] [place] [id number] [address] March, Underweight 783.22 ; Hand pain, right 729.5 and Reflux gastritis 535.40 [facility] [id number] [place] [id number]- [id number] 14 Feb, 2015 [facility] [address] [address] 13 Feb, 2015 [facility] [place] [facility] [address] [id number] [place] [address] 18 Jan, 2015 [facility] [place] [facility] [address] [id number] [place] [address] 18 Jan, 2015 [facility] [place] [facility] [address] [id number] [place] [address]103 16 Jan, 2015 [facility] [place] [facility] [address] [id number] [place] [address]- [address]65 16 Jan, 2015 [facility] [place] [facility] [address] [id number] [place] [address] Jan, [facility] [place] [facility] [address] [id number] [place] [address] Jan, [facility] [place] [facility] [address] [id number] [place] [address]- [address]574 05 Jan, 2015 [facility] [place] [facility] [address] [id number] [place] [address]- 2738 05 Jan, 2015 [facility] [place] [facility] [address] [id number] [place] [address]- 1735 Jan, [facility] [place] [facility] [address] [id number] [place] [address] Jan, [facility] [place] [facility] [address] [id number] [place] [address] Jan, [facility] [place] [facility] [address] [id number] [address] Jan, [facility] [place] [facility] [address] [id number] [place] [address]- 9671 Dec, [facility] [place] [facility] [address] [id number] [place] [address]- [address]136 Dec, [facility] [place] [facility] [address] [id number] [place] [address]- [address]116 Dec, [facility] [place] [facility] [address] [id number] [place] [address]- 8431 19 Dec, 2014 [facility] [place] [facility] [address] [id number] [place] [address]- [address]238 18 Dec, 2014 [facility] [place] [facility] [address] [id number] [place] [address]- 2546 17 Dec, 2014 [facility] [place] [facility] [address] [facility] [id number] [place] [address]- 8042 17 Dec, 2014 [facility] [place] [facility] [address] [id number] [place] [address]- 2547 16 Dec, 2014 [facility] [place] [facility] [address] [id number] [place] [address]- 0682 16 Dec, 2014 [facility] [place] [facility] [address] [facility] [id number] [place] [address]- 8646 05 Dec, 2014 [facility] [place] [facility] [address] [facility] [facility] [id number] [place] [address] 05 Dec, 2014 [facility] [place] [facility] [address] [facility] [id number] [place] [address] 7733 05 Dec, 2014 [facility] [place] [facility] [address] [facility] [id number] [place] [address] 8022 05 Dec, 2014 [facility] [place] [facility] [address] [facility] [id number] [place] [address] 0[address] Dec, 2014 [facility] [place] [facility] [address] [facility] [id number], [place] [address] Dec, 2014 [facility] [place] [facility] [address] [facility] [id number] [place] [address] 4030 Dec, 2014 [facility] [place] [facility] [address] [facility] [id number], [place] [address] 04 Dec, 2014 [facility] [place] [facility] [address] [facility] [id number] [place] [address] 7[address] 03 Dec, 2014 [facility] [place] [facility] [address] [facility] [id number] [place] [address]- 2546 Dec, [facility] [place] [facility] [address] [id number] [place] [address] 2546 Nov, [facility] [place] [facility] [address] [id number] [place] [address]- 2546 Nov, [facility] [place] [facility] [address] [id number] [place] [address]- 2546 Nov, [facility] [place] [facility] [address] [id number] [place] [address]- 2546 Nov, [facility] [place] [facility] [address] [id number] [place] [address]- 8046 Nov, [facility] [place] [facility] [address] [id number] [place] [address]- 2546 Nov, [facility] [place] [facility] [id number] [id number] Nov, [facility] [place] [facility] [address] [id number] [place] [address]- 2546 Nov, [facility] [place] [facility] [address] [id number] [place] [address]- 2546 Nov, [facility] [place] [facility] [id number] [id number] Nov, [facility] [place] [facility] [address] [id number] [place] [address]- 2546 Nov, [facility] [place] [facility] [address] [id number], [place] [address]- 2546 Nov, [facility] [place] [facility] [address] [id number] [place] [address]- 2546 Oct, [facility] [place] [facility] [address] [id number] [place] [address]- 2546 Oct, [facility] [place] [facility] [address] [id number] [place] [address]- 2546 Oct, [facility] [place] [facility] [address] [id number] [place] [address]- 1036 30 Oct, 2014 [facility] [place] [facility] [address] [id number] [place] [address]- 3354 Oct, [facility] [place] [facility] [address] [id number] [place] [address]- 7226 Oct, [facility] [place] [facility] [address] [id number] [place] [address]- 6988 Oct, [facility] [place] [facility] [address] [id number] [place] [address]- 7177 Oct, [facility] [place] [facility] [address] [id number] [place] [address] Oct, [facility] [place] [facility] [address] [id number] [place] [address] Oct, [facility] [place] [facility] [address] [id number] [place] [address]- 2958 Oct, [facility] [place] [facility] [address] [id number] [place] [address]- 0449 Oct, [facility] [place] [facility] [address] [id number] [place] [address]- 9446 Sep, [facility] [place] [facility] [address] [id number] [place] [address]39 Sep, [facility] [place] [facility] [address] [id number] [place] [address]- 1881 Sep, [facility] [place] [facility] [address] [id number] [place] [address]- 4283 Sep, [facility] [place] [facility] [address] [id number] [place] [address]- 9774 Sep, [facility] [place] [facility] [address] [id number] [place] [address]- 6406 Sep, [facility] [place] [facility] [address] [id number] [place] [address] 2470 Sep, [facility] [place] [facility] [address] [id number] [place] [address]- 8486 Sep, [facility] [place] [facility] [address] [id number] [place] [address]- 1596 Aug, [facility] [place] [facility] [address] [id number] [place] [address]- 4808 Aug, [facility] [place] [facility] [address] [id number] [place] [address]- 2338 Aug, [facility] [place] [facility] [address] [id number] [place] [address]- 1589 Aug, [facility] [place] [facility] [address] [id number] [place] [address]- 4642 Aug, [facility] [place] [facility] [address] [id number] [place] [address]- 2080 Aug, [facility] [place] [facility] [address] [id number], [place] [address]- 6120 Aug, [facility] [place] [facility] [address] [id number] [place] [address]- 0796 Aug, [facility] [place] [facility] [address] [id number], [place] [address] 9952 Aug, [facility] [place] [facility] [address] [id number], [place] [address]- 0685 Aug, [facility] [place] [facility] [address] [id number], [place] [address]- 5461 Aug, [facility] [place] [facility] [address] [id number], [place] [address]- 4831 Aug, [facility] [place] [facility] [address] [id number], [place] [address]- 3252 Aug, [facility] [place] [facility] [address] [id number], [place] [address]- 275[address] Jul, [facility] [place] [facility] [address] [id number] [place] [address]- 3298 Jul, [facility] [place] [facility] [address] [id number] [place] [address]- 2550 Jul, [facility] [place] [facility] [address] [id number] [place] [address]- 3865 Jul, [facility] [place] [facility] [address] [id number] [place] [address]- 9202 Jun, [facility] [place] [facility] [address] [id number] [place] [address]- 4832 Jun, [facility] [place] [facility] [address] [id number] [place] [address]- 7095 Jun, [facility] [place] [facility] [address] [id number] [place] [address]- 0719 Jun, [facility] [place] [facility] [address] [id number] [place] [address]- 1019 Jun, [facility] [place] [facility] [address] [id number] [place] [address]- 0962 Jun, [facility] [place] [facility] [address] [id number] [place] [address]- 3997 May, [facility] [place] [facility] [address] [id number] [place] [address]- 8142 May, [facility] [place] [facility] [address] [id number] [place] [address]- 9070 May, [facility] [place] [facility] [address] [id number] [place] [address]- 4237 May, [facility] [place] [facility] [address] [id number] [place] [address]- 0776 Apr, [facility] [place] [facility] [address] [id number] [place] [address]- 7478 Apr, [facility] [place] [facility] [address] [id number] [place] [address]- 4477 March, [facility] [place] [facility] [address] [id number] [place] [address]- 3759 March, [facility] [place] [facility] [address] [id number] [place] [address]- 3990 March, [facility] [place] [facility] [address] [id number] [place] [address]- 8704 March, [facility] [place] [facility] [address] [id number] [place] [address]- 4223 March, [facility] [place] [facility] [address] [id number] [place] [address]- 5342 March, [facility] [place] [facility] [address] [id number] [place] [address]- 1688 Feb, [facility] [place] [facility] [address] [id number] [place] [address]- 2484 Feb, [facility] [place] [facility] [address] [id number] [place] [address]- 4844 Dec, [facility] [place] [facility] [address] [id number] [place] [address]- 3744 Dec, [facility] [place] [facility] [address] [id number] [place] [address]- 9323 Nov, [facility] [place] [facility] [address] [id number] [place] [address]- 0114 Nov, [facility] [place] [facility] [address] [id number] [place] [address]- 9017 Sep, [facility] [place] [facility] [address] [id number] [place] [address]- 8333 Sep, [facility] [place] [facility] [address] [id number] [place] [address]- 7481 Sep, [facility] [place] [facility] [address] [id number] [place] [address]- 4032 Sep, [facility] [place] [facility] [address] [id number], [place] [address]- 4934 Sep, [facility] [place] [facility] [address] [id number] [place] [address]- 6788 Sep, [facility] [place] [facility] [address] [id number] [place] [address]- 7125 Sep, [facility] [place] [facility] [address] [id number] [place] [address]- 0324 Aug, [facility] [place] [facility] [address] [id number] [place] [address]- 8824 Aug, [facility] [place] [facility] [address] [id number] [place] 9826 Aug, [facility] [place] [facility] [address] [id number] [place] [address]- 1612 Aug, [facility] [place] [facility] [address] [id number] [place] [address]- 0839 Aug, [facility] [place] [facility] [address] [id number] [place] [address]- 7654 Aug, [facility] [place] [facility] [address] [id number] [place] [address]- 4774 Jul, [facility] [place] [facility] [address] [id number] [place] [address]- 8151 Jul, [facility] [place] [facility] [address] [id number], [place] [address]- 9803 16 Jul, 2013 [facility] [place] [facility] [address] [id number], [place] [address]- 7106 13 Jul, 2013 [facility] [place] [facility] [address] [id number] [place] [address]- 1147 Jun, [facility] [place] [facility] [address] [id number] [place] [address]- 7583 Jun, [facility] [place] [facility] [address] [id number] [place] [address]- 9900 Jun, [facility] [place] [facility] [address] [id number] [place] [address]- 3524 Jun, [facility] [address] [id number] [place] [address]- 1838 Jun, [facility] [place] [facility] [address] [id number] [place] [address]- 3286 Jun, [facility] [place] [facility] [address] [id number] [place] [address]- 1240 Jun, [facility] [place] [facility] [address] [id number] [place] [address]- 9753 May, [facility] [place] [facility] [address] [id number] [place] [address]- 1442 May, [facility] [place] [facility] [address] [id number] [place] [address]- 7047 May, [facility] [place] [facility] [address] [id number] [place] [address]- 7626 May, [facility] [place] [facility] [address] [id number] [place] [address]- 0008 May, [facility] [place] [facility] [address] [id number] [place] [address]- 1988 May, [facility] [place] [facility] [address] [id number] [place] [address]- 2192 May, [facility] [place] [facility] [address] [id number] [place] [address]- 5613 Apr, [facility] [place] [facility] [address] [id number] [place] [address]- 8705 Apr, [facility] [place] [facility] [address] [id number] [place] [address]- 2482 Apr, [facility] [place] [facility] [address] [id number] [place] [address]- 6374 Apr, [facility] [place] [facility] [address] [id number] [place] [address]- 4474 Apr, [facility] [place] [facility] [address] [id number] [place] [address]- 1822 18 Apr, 2013 [facility] [place] [facility] [address] [id number] [place] [address]- 2168 18 Apr, 2013 [facility] [place] [facility] [address] [id number] [place] [address]- 1233 18 Apr, 2013 [facility] [place] [facility] [address] [id number] [place] [address]- 5651 17 Apr, 2013 [facility] [place] [facility] [address] [id number] [place] [address]- 4684 14 Apr, 2013 [facility] [place] [facility] [address] [id number] [place] [address]- 3834 14 Apr, 2013 [facility] [place] [facility] [address] [id number] [place] [address]- 4683 11 Apr, 2013 [facility] [place] [facility] [address] [id number] [place] [address]- 4543 10 Apr, 2013 [facility] [place] [facility] [address] [id number] [place] [address]- 1742 09 Apr, 2013 [facility] [place] [facility] [address] [id number], [place] [address]- 8063 07 Apr, 2013 [facility] [place] [facility] [address] [id number], [place] [address]- 2256 06 Apr, 2013 [facility] [place] [facility] [address] [id number], [place] [address]- 6385 06 Apr, 2013 [facility] [place] [facility] [address] [id number] [place] [address]- 3260 05 Apr, 2013 [facility] [place] [facility] [address] [id number], [place] [address]- 6870 03 Apr, 2013 [facility] [place] [facility] [address] [id number] [place] [address]- 9480 March, [facility] [place] [facility] [address] [id number] [place] [address]- 5369 March, [facility] [address] [id number] [place] [address]- 5434 March, [facility] [address] [id number] [place] [address]- 1652 March, [facility] [address] [id number] [place] [address]- 8176 March, [facility] [address] [id number] [place] [address]- 6692 March, [facility] [address] [id number] [place] [address]- 8270 March, [facility] [address] [id number] [place] [address]- 1351 Feb, [facility] [address] [id number] [place] [address]- 3007 Feb, [facility] [address] [id number] [place] [address]- 8560 27 Jan, 2013 [facility] [address] [id number] [place] [address]- 7720 18 Jan, 2013 [facility] [address] [id number] [place] [address]- 3125 15 Jan, 2013 [facility] [address] [id number] [place] [address]- 5868 14 Jan, 2013 [facility] [address] [id number] [place] [address]- 0593 13 Jan, 2013 [facility] [place] [facility] [address] [id number] [place] [address]- 8921 12 Jan, 2013 [facility] [place] [facility] [address] [id number] [place] [address]- 5653 11 Jan, 2013 [facility] [address] [id number] [place] [address]- 7135 09 Jan, 2013 [facility] [place] [facility] [address] [id number] [place] [address]- 3821 08 Jan, 2013 [facility] [place] [facility] [address] [id number] [place] [address]- 6204 07 Jan, 2013 [facility] [place] [facility] [address] [id number] [place] [address] 2546 06 Jan, 2013 [facility] [place] [facility] [address] [id number] [place] [address]- 0727 17 Nov, 2012 [facility] [place] [facility] [address] [id number] [place] [address]- 6781 Oct, [facility] [place] [facility] [address] [id number] [place] [address]- 3315 Oct, [facility] [place] [facility] [address] [id number] [place] [address]- 8325 Oct, [facility] [place] [facility] [address] [id number] [place] [address]- 4420 Oct, [facility] [place] [facility] [address] [id number] [place] [address]- 0750 30 Sep, 2012 [facility] [place] [facility] [address] [id number] [place] [address]- 5939 30 Sep, 2012 [facility] [place] [facility] [address] [id number] [place] [address]- 4945 Sep, [facility] [place] [facility] [address] [id number] [place] [address]- 9342 16 Sep, 2012 [facility] [place] [facility] [address] [id number] [place] [address]- 3327 16 Sep, 2012 [facility] [place] [facility] [address] [id number] [place] [address]- 9039 16 Sep, 2012 [facility] [place] [facility] [address] [id number] [place] [address]- 0977 16 Sep, 2012 [facility] [place] [facility] [address] [id number] [place] [address]- 4782 Sep, [facility] [place] [facility] [address] [id number] [place] [address]- 6392 Sep, [facility] [place] [facility] [address] [id number] [place] [address]- 3717 Sep, [facility] [place] [facility] [address] [id number] [place] [address]- 1696 Sep, [facility] [place] [facility] [address] [id number] [place] [address]- 8153 Aug, [facility] [place] [facility] [address] [id number] [place] [address]- 9867 Aug, [facility] [place] [facility] [address] [id number] [place] [address]- 0778 Aug, [facility] [place] [facility] [address] [id number] [place] [address]- 9020 28 Jul, 2012 [facility] [place] [facility] [address] [id number] [place] [address]- 4891 25 Jul, 2012 [facility] [place] [facility] [address] [id number] [place] [address]- 3379 19 Jul, 2012 [facility] [place] [facility] [address] [id number] [place] [address]- 3085 17 Jul, 2012 [facility] [place] [facility] [address] [id number], [place] [address]- 2461 20 Jun, 2012 [facility] [place] [facility] [address] [id number], [place] [address]- 1442 16 Jun, 2012 [facility] [place] [facility] [address] [id number] [place] [address]- 5754 15 Jun, 2012 [facility] [place] [facility] [address] [facility] [id number] [place] [address]- 4728 15 Jun, 2012 [facility] [place] [facility] [address] [id number] [place] [address]- 1073 13 Jun, 2012 [facility] [place] [facility] [address] [id number] [place] [address]- 6085 18 Mar, 2012 [facility] [address] [id number] [place] [address]- 3956 04 Feb, 2012 [facility] [place] [facility] [address] [id number] [place] [address]- 5696 28 Jan, 2012 [facility] [place] [facility] [address] [id number] [place] [address]- 7203 27 Jan, 2012 [facility] [place] [facility] [address] [id number] [place] [address]- 8074 22 Jan, 2012 [facility] [address] [id number] [place] [address]- 0344 14 Jan, 2012 [facility] [place] [facility] [address] [id number] [place] [address]- 1719 14 Jan, 2012 [facility] [address] [id number] [place] [address]- 2065 14 Jan, 2012 [facility] [address] [id number] [place] [address] 28 Dec, 2011 [facility] [place] [facility] [address] [id number] [place] [address] 27 Dec, 2011 [facility] [address] [facility] [id number] [place] [address] 23 Dec, 2011 [facility] [place] [facility] [address] [id number] [place] [address] 21 Dec, 2011 [facility] [place] [facility] [address] [id number] [place] [address] 20 Dec, 2011 [facility] [place] [facility] [address] [id number] [place] [address] 19 Dec, 2011 [facility] [place] [facility] [address] [id number] [place] [address] 17 Dec, 2011 [facility] [place] [facility] [address] [id number] [place] [address] Dec, [facility] [id number] [address] Nov, [facility] [id number] [address] Oct, [facility] [id number] [address] Sep, [facility] [id number] [address] Sep, [facility] [id number] [address] Sep, [facility] [id number] [address] Sep, [facility] [id number] [address] Sep, [facility] [id number] [address] Sep, [facility] [id number], [place] [address] Jan, [facility] [id number] [address] Apr, IMMUNIZATIONS No Known Immunizations SOCIAL HISTORY Never Assessed REASON FOR VISIT [facility] PLAN OF CARE VITAL SIGNS MEDICATIONS Unknown [...]
--- OUTSIDE RECORDS SUMMARY | 2019-03-04 16:34 | XMS REPORT ---
Author Author Migration, Doctor Organization [facility] Address Unknown Phone Unavailable Care Team Providers Care Manager Play Name Role Phone Migration, Doctor Unavailable Unavailable PROBLEMS Type Condition ICD9-CM Code [id number] Code Onset Dates Condition Status SNOMED Code Problem Generalized anxiety disorder F41.1 Active 55567652 Problem Bipolar disorder, current episode mixed, moderate F31.62 Active 483068387 Problem Acute non intractable tension-type headache G44.209 Active 790282004 Problem Constipation K59.00 Active 23800401 Problem Post traumatic stress disorder F43.10 Active 58429438 Problem Borderline personality disorder F60.3 Active 11184798 Problem Endometriosis N80.9 Active 457442113 Problem Acute right-sided low back pain with right-sided sciatica M54.41 Active [id number] ALLERGIES No Information ENCOUNTERS Encounter Location Date Diagnosis [facility] [id number] [place] [address] 44686- 0082 Feb, [facility] [address] 34123 -7658 Jan, Dehydration E86.0 and Back muscle spasm M62.830 [facility] [address] 72398- 6686 Jan, Bipolar disorder, current episode mixed, moderate F31.62 ; Post traumatic stress disorder F43.10 ; Borderline personality disorder F60.3 and 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 [facility] [id number] [place] [address] 18545 -8327 Jan, Cough R05 and Viral upper respiratory tract infection J06.9 [facility] [address] 27376- 7638 Jan, Bipolar disorder, current episode mixed, moderate F31.62 [facility] [address] 29528- 1942 08 Dec, 2018 Bipolar disorder, current episode mixed, moderate F31.62 [facility] [id number] [place] [address] 94703- 9321 10 Nov, 2018 Bipolar disorder, current episode mixed, moderate F31.62 [facility] [id number] [place] [address] 54849 -8546 Oct, Sore throat J02.9 [facility] [id number] [place] [address] 72708 -3419 Oct, Abdominal pain R10.9 ; Low back pain M54.5 ; Left shoulder pain M25.512 and Constipation K59.00 [place] [id number] [place] [address] 81332- 1170 Oct, Bipolar disorder, current episode mixed, moderate F31.62 ; Post traumatic stress disorder F43.10 and Borderline personality disorder F60.3 [place] [facility] [id number] [place] [address] 84554- 1842 Sep, Bipolar disorder, current episode mixed, moderate F31.62 [place] [facility] [id number] [place] [address] 18431- 8713 08 Aug, 2018 Bipolar disorder, current episode mixed, moderate F31.62 [place] [facility] [id number] [place] [address] 20432- 6534 25 Jul, 2018 Thrombophlebitis I80.9 and Pelvic pain R10.2 [facility] [id number] [place] [address] 07924- 0184 05 Jul, 2018 Bipolar disorder, current episode mixed, moderate F31.62 ; Post traumatic stress disorder F43.10 and Borderline personality disorder F60.3 [place] [id number] [place] [address] 22867- 5321 06 Jun, 2018 Bipolar disorder, current episode mixed, moderate F31.62 [facility] [facility] [id number] [place] [address] 73741- 0282 May, Palpitations R00.2 [facility] [address] [place] [address] 66730- 8646 13 May, 2018 Palpitations R00.2 [facility] [id number] [place] [address] 19966- 0413 12 May, 2018 Palpitations R00.2 and Frequent bowel movements R19.4 [facility] [id number] [place] [address] 29424- 0768 05 May, 2018 Bipolar disorder, current episode mixed, moderate F31.62 ; Post traumatic stress disorder F43.10 and Borderline personality disorder F60.3 [facility] [id number] [place] [address] [id number] 15 Apr, 2018 Dental examination Z01.20 [facility] [id number] [place] [address] 97472 -5622 15 Apr, 2018 [facility] [id number] [place] [address] 75192 -2772 15 Apr, 2018 Tooth pain K08.89 [facility] [id number] [place] [address] 18853- 9017 15 Apr, 2018 Dental examination Z01.20 [facility] [id number] [place] [address] 21893- 4306 06 Apr, 2018 Bipolar disorder, current episode mixed, moderate F31.62 ; Post traumatic stress disorder F43.10 and Borderline personality disorder F60.3 [facility] [address] [place] [address] 53476 -5065 March, Abdominal pain R10.9 ; UTI symptoms R39.9 and Other microscopic hematuria R31.29 [facility] [id number] [place] [address] 01702- 5950 March, [facility] [id number] [place] [address] 96540- 5096 March, Bipolar disorder, current episode mixed, moderate F31.62 ; Post traumatic stress disorder F43.10 and Borderline personality disorder F60.3 [facility] [address] [place] [address] 17926- 8343 30 Feb, 2018 Encounter for immunization Z23 [facility] [id number] [place] [address] 71190- 4389 16 Feb, 2018 Bipolar disorder, current episode mixed, moderate F31.62 ; Post traumatic stress disorder F43.10 and Borderline personality disorder F60.3 [facility] [id number] [place] [address] 99645- 3276 11 Feb, 2018 Bipolar disorder, current episode mixed, moderate F31.62 ; Post traumatic stress disorder F43.10 ; Borderline personality disorder F60.3 and 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 [place] [id number] [place] [address] 14877- 7801 30 Jan, 2018 Encounter for immunization Z23 [facility] [id number] [place] [address] 93996- 2293 Jan, [facility] [id number] [place] [address] 59532- 0324 12 Jan, 2018 Bipolar disorder, current episode mixed, moderate F31.62 [facility] [id number] [place] [address] 00314 -5620 Jan, Lumbar back pain M54.5 [facility] [id number] [place] [address] 87446- 7596 28 Dec, 2017 Low back pain M54.5 [facility] [id number] [place] [address] 54911- 6538 13 Dec, 2017 Bipolar disorder, current episode mixed, moderate F31.62 [facility] [id number] [place] [address] 38464- 9985 13 Dec, 2017 Generalized anxiety disorder F41.1 and Bipolar disorder, current episode mixed, moderate F31.62 [facility] [id number] [place] [address] 61119 -2298 Nov, Acute non intractable tension-type headache G44.209 [facility] [id number] [place] [address] 81301- 5273 Nov, Bipolar disorder, current episode mixed, moderate F31.62 ; Post traumatic stress disorder F43.10 and Borderline personality disorder F60.3 [place] [id number] [place] [address] 63032- 2996 Nov, Bipolar disorder, current episode mixed, moderate F31.62 [facility] [place] [address] 48643 -1171 Nov, Abdominal pain R10.9 ; History of PCOS Z87.42 ; History of endometriosis Z87.42 and Pelvic pain R10.2 [place] [id number] [place] [address] 53337- 0124 Nov, [facility] [place] [address] 08137 -8798 Oct, History of PCOS Z87.42 ; History of endometriosis Z87.42 and Pain R52 [place] [id number] [place] [address] 24057- 2748 Oct, Bipolar disorder, current episode mixed, moderate F31.62 ; Post traumatic stress disorder F43.10 and Borderline personality disorder F60.3 [facility] [id number] [place] [address] 32812- 1260 Oct, Bipolar disorder, current episode mixed, moderate F31.62 [place] [id number] [place] [address] 02681- 1931 Sep, Bipolar disorder, current episode mixed, moderate F31.62 ; Post traumatic stress disorder F43.10 ; Borderline personality disorder F60.3 and 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 [place] [id number] [place] [address] 55370- 7847 Sep, Bipolar disorder, current episode mixed, moderate F31.62 [facility] [address] [address] Sep, Endometriosis N80.9 and Acute right-sided low back pain with right-sided sciatica M54.41 [facility] [address] [place] [address] 63449- 8522 Aug, [facility] [id number] [place] [address] 62885- 7802 Aug, Bipolar disorder, current episode mixed, moderate F31.62 ; Post traumatic stress disorder F43.10 and Borderline personality disorder F60.3 [facility] [address] [place] [address] 49871- 7178 11 Aug, 2017 Bipolar disorder, current episode mixed, moderate F31.62 ; Post traumatic stress disorder F43.10 and Borderline personality disorder F60.3 [facility] [address] [place] [address] 79994- 3967 13 Jul, 2017 Bipolar disorder, current episode mixed, moderate F31.62 ; Post traumatic stress disorder F43.10 and Borderline personality disorder F60.3 [facility] [address] [place] [address] 56761 -0087 11 Jul, 2017 Pharyngitis, unspecified etiology J02.9 and Streptococcal pharyngitis J02.0 [facility] [address] [address]- 3489 16 Jun, 2017 Bipolar disorder, current episode mixed, moderate F31.62 ; Post traumatic stress disorder F43.10 and Borderline personality disorder F60.3 [facility] [address] [place] [address] 54895- 1374 May, [facility] [id number] [place] [address] 92698- 2305 May, [facility] [address] [place] [address] 76016- 9430 17 May, 2017 Bipolar disorder, current episode mixed, moderate F31.62 and Generalized anxiety disorder F41.1 [place] [address] [place] [address] 68193- 0215 March, Bipolar disorder, current episode mixed, moderate F31.62 and Generalized anxiety disorder F41.1 [facility] [id number] [place] [address] March, Pelvic pain R10.2 [place] [id number] [place] [address] 66738- 8885 March, [facility] [id number] [place] [address] 80681- 8809 Feb, Bipolar disorder, current episode mixed, moderate F31.62 and Generalized anxiety disorder F41.1 [place] [id number] [place] [address] 53962- 8892 Jan, [facility] [facility] [id number] [place] [address] 46364- 8469 Jan, Bipolar disorder, current episode mixed, moderate F31.62 [place] [id number] [place] [address] 25130- 6611 Jan, Bipolar disorder, current episode mixed, moderate F31.62 [facility] [id number] [place] [address] 29308- 7885 Jan, Bilateral low back pain without sciatica M54.5 [facility] [id number] [place] [address] [id number] Jan, Dental caries K02.9 and Dental examination Z01.20 [facility] [id number] [place] [address] [id number] Jan, Encounter for dental examination and cleaning without abnormal findings Z01.20 [facility] [id number] [place] [address] 17024- 4729 Jan, Bipolar disorder, current episode mixed, moderate F31.62 and Generalized anxiety disorder F41.1 [facility] [id number] [place] [address] 22149- 6608 Dec, [facility] [address] [place] [address] 53430- 4195 Dec, Bipolar disorder, current episode mixed, moderate F31.62 and Generalized anxiety disorder F41.1 [place] [id number] [place] [address] 67177- 8787 03 Dec, 2016 Other fatigue R53.83 and Orthostatic hypotension I95.1 [facility] [id number] [place] [address] [id number] Nov, Dental examination Z01.20 [facility] [address] 46298 -0031 Nov, Bronchitis J40 [place] [id number] [place] [address] 44773- 3145 Oct, Generalized anxiety disorder F41.1 [place] [address] 72395- 9581 Sep, Bipolar disorder, current episode mixed, moderate F31.62 and Generalized anxiety disorder F41.1 [place] [id number] [place] [address] 99599- 7759 Sep, Bipolar disorder, current episode mixed, moderate F31.62 and Generalized anxiety disorder F41.1 [facility] [id number] [place] [address] 77729 -6624 08 Jul, 2016 Upper respiratory tract infection, unspecified type J06.9 [facility] [id number] [place] [address] 19996- 3976 Jun, Bipolar disorder, current episode mixed, moderate F31.62 and Generalized anxiety disorder F41.1 [place] [id number] [place] [address] 06022- 8249 Apr, [place] [id number] [place] [address] 14436- 8830 Apr, Encounter for test, result positive Z32.01 [place] [address] [address]- 2758 March, [facility] [id number] [place] [address] 93172- 6063 March, Bipolar disorder, current episode mixed, moderate F31.62 and Generalized anxiety disorder F41.1 [facility] [id number] [place] [address] 12921- 8626 March, Bipolar disorder, current episode mixed, moderate F31.62 and Generalized anxiety disorder F41.1 [facility] [id number] [place] [address] 33364- 3208 March, [facility] [id number] [place] [address] 83523- 8014 March, [facility] [id number] [place] [address] 96302- 1874 Feb, [facility] [id number] [place] [address] 60542- 6872 Feb, [facility] [id number] [place] [address] 30906- 5853 Feb, Bipolar disorder, current episode mixed, moderate F31.62 and Generalized anxiety disorder F41.1 [facility] [address] [place] [address] 73352- 6106 Jan, Abdominal pain R10.9 [facility] [id number] [place] [address] 92945- 3601 14 Jan, 2016 [facility] [address] [place] [address] 19434- 6788 29 Dec, 2015 Dental examination Z01.20 [facility] [id number] [place] [address] 48615- 6353 22 Dec, 2015 Dental examination Z01.20 and Dental caries K02.9 [facility] [address] [place] [address] 16448- 4795 15 Dec, 2015 Bipolar disorder, current episode mixed, moderate F31.62 and Generalized anxiety disorder F41.1 [place] [address] [place] [address] 78816- 6988 Dec, [place] [id number] [place] [address] 70710- 4897 Nov, Bipolar disorder, current episode mixed, moderate F31.62 ; Generalized anxiety disorder F41.1 and Seizure-like activity R56.9 [place] [id number] [place] [address] 84124- 0701 Oct, [place] [id number] [place] [address] 28235- 3229 Oct, Bipolar disorder, current episode mixed, moderate F31.62 [place] [id number] [place] [address] 50599- 6646 14 Oct, 2015 Well woman exam Z01.419 [...] Tobacco use Z72.0 and Hot flashes N95.1 [place] [address] [place] [address] 86719- 2775 Oct, Seizure-like activity R56.9 and Irregular periods N92.6 [place] [id number] [place] [address] 61017- 2808 07 Oct, 2015 Bipolar disorder, current episode mixed, moderate F31.62 ; Generalized anxiety disorder F41.1 and Underweight R63.6 [place] [address] [place] [address] 35120- 4253 Oct, [place] [address] [place] [address]- 6899 Oct, Generalized anxiety disorder F41.1 and Unspecified mood [ affective] disorder F39 [facility] [id number] [place] [address] 90600 -6401 Oct, Back pain M54.9 and Anxiety F41.9 [facility] [id number] [place] [address] 65042- 1755 Oct, [facility] [id number] [place] [address] 10456 -3416 Sep, Arm pain, left M79.602 [facility] [address] 86090- 1295 Sep, [facility] [address] [id number] Sep, Dental examination Z01.20 and Dental caries K02.9 [facility] [id number] [place] [address] 74950- 6588 Sep, Generalized anxiety disorder F41.1 and Unspecified episodic mood disorder F39 [facility] [address] 81453- 3233 Sep, Bilateral low back pain without sciatica M54.5 and Seizure- like activity R56.9 [facility] [id number] [place] [address] 96055- 8485 Aug, [facility] [id number] [place] [address] 18771- 5468 Aug, [facility] [id number] [place] [address] 27028- 1182 Aug, [facility] [id number] [place] [address] 11026- 0563 Aug, Visual changes H53.9 and Bilateral low back pain without sciatica M54.5 [facility] [id number] [place] [address] 75927- 1430 Jul, [facility] [address] [place] [address] 228669- 0224 Jun, Bipolar I disorder, most recent episode (or current) mixed, moderate 296.62 ; Generalized anxiety disorder 300.02 and High risk medication use V58.69 [facility] [id number] [place] [address] 08560- 6406 Jun, [facility] [address] 90124- 6367 May, [facility] [id number] [place] [address] 86094- 3240 May, Bipolar I disorder, most recent episode (or current) mixed, moderate 296.62 and Generalized anxiety disorder 300.02 [facility] [id number] [place] [address] [id number] May, Dental examination V72.2 [facility] [id number] [place] [address] 70897- 0809 March, Bipolar I disorder, most recent episode (or current) mixed, moderate 296.62 and Generalized anxiety disorder 300.02 [facility] [id number] [place] [address] 67496- 8498 March, [facility] [id number] [place] [address] 62492- 3960 March, [facility] [id number] [place] [address] 50892- 7002 March, Underweight 783.22 ; Hand pain, right 729.5 and Reflux gastritis 535.40 [facility] [id number] [place] [address] 39135- 9606 Feb, [facility] [id number] [place] [address] 29965895- 9963 Feb, [facility] [id number] [place] [address] 87643- 9018 Jan, [facility] [place] [facility] [address] [id number] [place] [address]- 3481 18 Jan, 2014 [facility] [place] [facility] [address] [id number] [place] [address]- 7996 16 Jan, 2014 [facility] [place] [facility] [address] [id number] [place] [address]- 7115 16 Jan, 2014 [facility] [place] [facility] [address] [id number] [place] [address]- 1753 Jan, 2014 [facility] [place] [facility] [address] [id number] [place] [address]- 7965 13 Jan, 2015 [facility] [place] [facility] [address] [id number] [place] [address]- 1837 05 Jan, 2015 [facility] [place] [facility] [address] [id number] [place] [address] 05 Jan, 2015 [facility] [place] [facility] [address] [id number] [place] [address] Jan, [facility] [place] [facility] [address] [id number] [place] [address] Jan, [facility] [place] [facility] [address] [id number] [place] [address] Jan, [facility] [place] [facility] [address] [facility] [id number] [place] [address] Jan, [facility] [place] [facility] [address] [id number] [place] [address] Dec, [facility] [place] [facility] [address] [id number] [place] [address] Dec, [facility] [place] [facility] [address] [id number] [place] [address] Dec, [facility] [place] [facility] [address] [id number] [place] [address] Dec, [facility] [place] [facility] [address] [id number] [place] [address] 18 Dec, 2014 [facility] [place] [facility] [address] [id number] [place] [address] Dec, 2014 [facility] [place] [facility] [address] [id number] [place] [address] 17 Dec, 2014 [facility] [place] [facility] [address] [facility] [id number] [place] [address] 16 Dec, 2014 [facility] [place] [facility] [address] [id number] [place] [address] Dec, 2014 [facility] [place] [facility] [address] [id number] [place] [address] Dec, 2014 [facility] [place] [facility] [address] [facility] [id number] [place] [address] 05 Dec, 2014 [facility] [place] [facility] [address] [facility] [id number] [place] [address] 05 Dec, 2014 [facility] [place] [facility] [address] [facility] [id number] [place] [address] 05 Dec, 2014 [facility] [place] [facility] [address] [facility] [id number] [place] [address] 04 Dec, 2014 [facility] [place] [facility] [address] [facility] [id number] [place] [address] 04 Dec, 2014 [facility] [place] [facility] [address] [facility] [id number] [place] [address] 2544 Dec, 2014 [facility] [place] [facility] [address] [facility] [id number] [place] [address] 2544 Dec, 2014 [facility] [place] [facility] [address] [facility] [id number] [place] [address] 87[address] Dec, 2014 [facility] [place] [facility] [address] [facility] [id number] [place] [address] 2540 Dec, 2014 [facility] [place] [facility] [address] [facility] [id number] [place] [address] Nov, [facility] [place] [facility] [address] [id number] [place] [address] 2546 Nov, [facility] [place] [facility] [address] [id number] [place] [address]- 2546 Nov, [facility] [place] [facility] [address] [id number] [place] [address]- 2546 Nov, [facility] [place] [facility] [address] [id number] [place] [address]- 2546 Nov, [facility] [place] [facility] [address] [id number] [place] [address]- 2546 Nov, [facility] [place] [facility] [id number] [id number] Nov, [facility] [place] [facility] [address] [id number] [place] [address] 2546 Nov, [facility] [place] [facility] [address] [id number] [place] [address] Nov, [facility] [place] [facility] [address] [id number] [place] [id number] Nov, [facility] [place] [facility] [address] [id number] [place] [address]- 25[address] Nov, [facility] [place] [facility] [address] [id number] [place] [address]- 2546 Nov, [facility] [place] [facility] [address] [id number] [place] [address]- 2546 Oct, [facility] [place] [facility] [address] [id number] [place] [address]- 2546 Oct, [facility] [place] [facility] [address] [id number] [place] [address]- 2546 Oct, [facility] [place] [facility] [address] [id number] [place] [address]- 2546 Oct, [facility] [place] [facility] [address] [id number] [place] [address]- 0[address] Oct, [facility] [place] [facility] [address] [id number] [place] [address]- 0848 Oct, [facility] [place] [facility] [address] [id number] [place] [address] 2576 Oct, [facility] [place] [facility] [address] [facility] [id number] [place] [address]- 3764 Oct, [facility] [place] [facility] [address] [id number] [place] [address]- 8998 Oct, [facility] [place] [facility] [address] [id number] [place] [address]- 6291 Oct, [facility] [place] [facility] [address] [facility] [id number] [place] [address] 2922 Oct, [facility] [place] [facility] [address] [facility] [id number] [place] [address]- 3370 Oct, [facility] [place] [facility] [address] [id number] [place] [address]- 2976 Sep, [facility] [place] [facility] [address] [id number] [place] [address]- 7357 Sep, [facility] [place] [facility] [address] [facility] [id number] [place] [address] 1734 Sep, [facility] [place] [facility] [address] [id number] [place] [address] 1370 Sep, [facility] [place] [facility] [address] [id number] [place] [address]- 4869 Sep, [facility] [place] [facility] [address] [id number] [place] [address] 8[address] Sep, [facility] [place] [facility] [address] [facility] [id number] [place] [address] 7944 Sep, [facility] [place] [facility] [address] [facility] [id number] [place] [address]- 0[address] Sep, [facility] [place] [facility] [address] [id number] [place] [address]- 2506 Aug, 2013 [facility] [place] [facility] [address] [id number] [place] [address]- 0453 28 Aug, 2014 [facility] [place] [facility] [address] [id number] [place] [address]- 9317 Aug, [facility] [place] [facility] [address] [id number] [place] [address] Aug, 2013 [facility] [place] [facility] [address] [id number] [place] [address]- 2899 Aug, [facility] [place] [facility] [address] [id number] [place] [address]- 0888 10 Aug, 2013 [facility] [place] [facility] [address] [id number] [place] [address] 5734 08 Aug, 2014 [facility] [place] [facility] [address] [id number] [place] [address]- 5413 08 Aug, 2013 [facility] [place] [facility] [address] [id number] [place] [address]- 1256 Aug, [facility] [place] [facility] [address] [id number] [place] [address]- [address] 07 Aug, 2013 [facility] [place] [facility] [address] [id number] [place] [address] 4560 Aug, [facility] [place] [facility] [address] [id number] [place] [address]- 5898 07 Aug, 2013 [facility] [place] [facility] [address] [id number] [place] [address]- 6791 03 Aug, 2014 [facility] [place] [facility] [address] [id number] [place] [address] 22 Jul, 2013 [facility] [place] [facility] [address] [id number] [place] [address] 22 Jul, 2013 [facility] [place] [facility] [address] [id number] [place] [address]- 4165 Jul, [facility] [place] [facility] [address] [id number] [place] [address]- 5493 Jul, [facility] [place] [facility] [address] [id number] [place] [address]- 2616 Jun, [facility] [place] [facility] [address] [id number] [place] [address] 0171 Jun, [facility] [place] [facility] [address] [id number] [place] [address]- 1026 Jun, [facility] [place] [facility] [address] [id number] [place] [address]- 8249 Jun, [facility] [place] [facility] [address] [id number] [place] [address]- 4101 Jun, [facility] [place] [facility] [address] [id number] [place] [address]- 4737 Jun, [facility] [place] [facility] [address] [id number] [place] [address]- 8445 May, [facility] [place] [facility] [address] [id number] [place] [address]- 1398 May, [facility] [place] [facility] [address] [id number] [place] [address]- 9872 May, [facility] [place] [facility] [address] [id number] [place] [address]- 7155 May, [facility] [place] [facility] [address] [id number] [place] [address]- 2648 Apr, [facility] [place] [facility] [address] [id number] [place] [address]- 5146 Apr, [facility] [place] [facility] [address] [id number] [place] [address]- 4428 March, [facility] [place] [facility] [address] [id number] [place] [address]- 4462 March, [facility] [place] [facility] [address] [id number] [place] [address]- 2697 March, [facility] [address] [id number] [place] [address]- 5607 March, [facility] [place] [facility] [address] [id number] [place] [address]- 2301 March, [facility] [address] [id number] [place] [address]- 5287 March, [facility] [place] [facility] [address] [id number] [place] [address]- 5496 Feb, [facility] [address] [id number] [place] [address]- 7321 Feb, [facility] [place] [facility] [address] [id number] [place] [address]- 2849 Dec, [facility] [place] [facility] [address] [id number] [place] [address]- 7729 Dec, [facility] [address] [id number] [place] [address]- 3393 Nov, [facility] [place] [facility] [address] [id number] [place] [address]- 8109 Nov, [facility] [address] [id number] [place] [address]- 9449 Sep, [facility] [place] [facility] [address] [id number] [place] [address]- 6980 Sep, [facility] [place] [facility] [address] [id number] [place] [address]- 3969 Sep, [facility] [place] [facility] [address] [id number] [place] [address]- 4513 Sep, [facility] [place] [facility] [address] [id number] [place] [address]- 6279 Sep, [facility] [place] [facility] [address] [id number] [place] [address]- 6487 Sep, [facility] [place] [facility] [address] [id number] [place] [address]- 0152 Sep, [facility] [place] [facility] [address] [id number] [place] [address]- 0185 Aug, [facility] [place] [facility] [address] [id number] [place] [address]- 5942 Aug, [facility] [place] [facility] [address] [id number] [place] [address]- 2888 Aug, [facility] [place] [facility] [address] [id number] [place] [address]- 0222 Aug, [facility] [place] [facility] [address] [id number] [place] [address]- 5959 Aug, [facility] [place] [facility] [address] [id number] [place] [address]- 9259 Aug, [facility] [place] [facility] [address] [id number] [place] [address]- 8194 Jul, [facility] [place] [facility] [address] [id number] [place] [address]- 8329 Jul, [facility] [place] [facility] [address] [id number] [place] [address]- 7972 16 Jul, 2013 [facility] [place] [facility] [address] [id number] [place] [address]- 5730 Jul, [facility] [place] [facility] [address] [id number] [place] [address]- 3900 Jun, [facility] [place] [facility] [address] [id number] [place] [address]- 3649 Jun, [facility] [place] [facility] [address] [id number] [place] [address]- 8209 Jun, [facility] [place] [facility] [address] [id number] [place] [address]- 8894 Jun, [facility] [place] [facility] [address] [id number] [place] [address]- 6021 Jun, [facility] [place] [facility] [address] [id number] [place] [address]- 0836 Jun, [facility] [place] [facility] [address] [id number] [place] Jun, [facility] [place] [facility] [address] [id number] [place] [address]- 1328 May, [facility] [place] [facility] [address] [id number] [place] [address]- 2189 May, [facility] [place] [facility] [address] [id number] [place] [address]- 5442 May, [facility] [place] [facility] [address] [id number] [place] [address]- 2111 May, [facility] [place] [facility] [address] [id number] [place] [address]- 0367 May, [facility] [place] [facility] [address] [id number] [place] [address]- 8815 May, [facility] [place] [facility] [address] [id number] [place] [address]- 0865 May, [facility] [place] [facility] [address] [id number] [place] [address]- 2345 Apr, [facility] [place] [facility] [address] [id number] [place] [address]- 7822 Apr, [facility] [place] [facility] [address] [id number] [place] [address]- 4785 Apr, [facility] [place] [facility] [address] [id number] [place] [address]- 7811 Apr, [facility] [place] [facility] [address] [id number] [place] [address]- 5225 Apr, [facility] [place] [facility] [address] [id number] [place] [address]- 0193 18 Apr, 2013 [facility] [place] [facility] [address] [id number] [place] [address]- 2524 18 Apr, 2013 [facility] [place] [facility] [address] [id number] [place] [address]- 0262 18 Apr, 2013 [facility] [place] [facility] [address] [id number] [place] [address]- 6682 17 Apr, 2013 [facility] [place] [facility] [address] [id number] [place] [address]- 5385 14 Apr, 2013 [facility] [place] [facility] [address] [id number] [place] [address]- 2261 14 Apr, 2013 [facility] [place] [facility] [address] [id number] [place] [address]- 3086 11 Apr, 2013 [facility] [place] [facility] [address] [id number] [place] [address]- 5207 10 Apr, 2013 [facility] [place] [facility] [address] [id number] [place] [address]- 0355 09 Apr, 2013 [facility] [place] [facility] [address] [id number] [place] [address]- 3755 07 Apr, 2013 [facility] [place] [facility] [address] [id number] [place] [address]- 7740 06 Apr, 2013 [facility] [place] [facility] [address] [id number] [place] [address]- 9737 06 Apr, 2013 [facility] [place] [facility] [address] [id number] [place] [address]- 8596 05 Apr, 2013 [facility] [place] [facility] [address] [id number] [place] [address]- 7255 Apr, [facility] [place] [facility] [address] [id number] [place] [address]- 8337 March, [facility] [place] [facility] [address] [id number] [place] [address]- 5640 March, [facility] [place] [facility] [address] [id number] [place] [address]- 7184 March, [facility] [address] [id number] [place] [address]- 6146 March, [facility] [address] [id number] [place] [address]- 0533 March, [facility] [address] [id number] [place] [address]- 1479 March, [facility] [address] [id number] [place] [address]- 1699 March, [facility] [address] [id number] [place] [address]- 2773 Feb, [facility] [address] [id number] [place] [address]- 7655 Feb, [facility] [address] [id number] [place] [address]- 4714 Jan, [facility] [address] [id number] [place] [address]- 6201 18 Jan, 2013 [facility] [address] [id number] [place] [address]- 1464 15 Jan, 2013 [facility] [address] [id number] [place] [address]- 8313 14 Jan, 2013 [facility] [address] [id number] [place] [address]- 0581 Jan, [facility] [place] [facility] [address] [id number] [place] [address]- 6475 Jan, [facility] [place] [facility] [address] [id number] [place] [address]- 0817 Jan, [facility] [place] [facility] [address] [id number] [place] [address]- 5769 09 Jan, 2013 [facility] [place] [facility] [address] [id number] [place] [address]- 4375 08 Jan, 2013 [facility] [place] [facility] [address] [id number] [place] [address]- 7134 07 Jan, 2013 [facility] [place] [facility] [address] [id number] [place] [address]- 6908 06 Jan, 2013 [facility] [place] [facility] [address] [id number] [place] [address]- 4718 17 Nov, 2012 [facility] [place] [facility] [address] [id number] [place] [address]- 0090 Oct, [facility] [place] [facility] [address] [id number] [place] [address]- 2295 Oct, [facility] [place] [facility] [address] [id number] [place] [address]- 4598 Oct, [facility] [place] [facility] [address] [id number] [place] [address]- 7107 Oct, [facility] [place] [facility] [address] [id number] [place] [address]- 1198 Sep, [facility] [place] [facility] [address] [id number] [place] [address]- 4731 30 Sep, 2012 [facility] [place] [facility] [address] [id number] [place] [address]- 8851 Sep, [facility] [place] [facility] [address] [facility] [id number] [place] [address]- 7288 Sep, [facility] [place] [facility] [address] [id number] [place] [address]- 2980 16 Sep, 2012 [facility] [place] [facility] [address] [id number] [place] [address]- 9735 Sep, [facility] [place] [facility] [address] [id number] [place] [address]- 5756 16 Sep, 2012 [facility] [place] [facility] [address] [id number] [place] [address]- 2274 Sep, [facility] [place] [facility] [address] [facility] [id number] [place] 4030 Sep, [facility] [place] [facility] [address] [id number] [place] [address]- 7492 Sep, [facility] [place] [facility] [address] [id number] [place] [address]- 1011 Sep, [facility] [place] [facility] [address] [id number] [place] [address]- 4547 Aug, [facility] [place] [facility] [address] [id number] [place] [address]- 9963 Aug, [facility] [place] [facility] [address] [id number] [place] [address]- 4445 Aug, [facility] [place] [facility] [address] [id number] [place] [address]- 3157 28 Jul, 2012 [facility] [place] [facility] [address] [id number] [place] [address]- 1606 25 Jul, 2012 [facility] [place] [facility] [address] [id number] [place] [address]- 3641 19 Jul, 2012 [facility] [place] [facility] [address] [id number] [place] [address]- 2545 17 Jul, 2012 [facility] [place] [facility] [address] [id number] [place] [address]- 3777 20 Jun, 2012 [facility] [place] [facility] [address] [id number] [place] [address]- 1270 16 Jun, 2012 [facility] [place] [facility] [address] [id number] [place] [address]- 5025 15 Jun, 2012 [facility] [place] [facility] [address] [id number] [place] [address]- 1384 15 Jun, 2012 [facility] [place] [facility] [address] [id number] [place] [address]- 7787 Jun, [facility] [place] [facility] [address] [id number] [place] [address]- 0678 March, [facility] [place] [facility] [address] [id number] [place] [address]- 9904 04 Feb, 2012 [facility] [place] [facility] [address] [id number] [place] [address]- 3191 28 Jan, 2012 [facility] [place] [facility] [address] [id number] [place] [address]- 4236 27 Jan, 2012 [facility] [place] [facility] [address] [facility] [id number] [place] [address]- 5876 22 Jan, 2012 [facility] [place] [facility] [address] [id number] [place] [address]- 9453 14 Jan, 2012 [facility] [place] [facility] [address] [id number] [place] [address]- 9389 14 Jan, 2012 [facility] [place] [facility] [address] [id number] [place] [address]- 4955 14 Jan, 2012 [facility] [place] [facility] [address] [id number] [place] [address] 28 Dec, 2011 [facility] [place] [facility] [address] [id number] [place] [address] 27 Dec, 2011 [facility] [place] [facility] [address] [id number] [place] [address] 23 Dec, 2011 [facility] [place] [facility] [address] [facility] [id number] [place] [address] 21 Dec, 2011 [facility] [place] [facility] [address] [id number] [place] [address] 20 Dec, 2011 [facility] [place] [facility] [address] [id number] [place] [address] 19 Dec, 2011 [facility] [place] [facility] [address] [id number] [place] [address] 17 Dec, 2011 [facility] [place] [facility] [address] [id number] [place] [address] 16 Dec, 2011 [facility] [place] [facility] [address] [facility] [id number] [place] [address] 31 Nov, 2011 [facility] [place] [facility] [id number] [address] Oct, [facility] [id number] [address] Sep, [facility] [id number] [address] Sep, [facility] [id number] [address] Sep, [facility] [id number] [address] Sep, [facility] [id number] [place] [address] Sep, [facility] [id number] [address] Sep, [facility] [id number] [address] Jan, [facility] [id number] [address] Apr, IMMUNIZATIONS No Known Immunizations SOCIAL HISTORY Never Assessed REASON FOR VISIT [facility] [place] PLAN OF CARE VITAL SIGNS MEDICATIONS Unknown [...]
--- OUTSIDE RECORDS SUMMARY | 2019-03-04 16:35 | XMS REPORT ---
Author Author Migration, Doctor Organization [facility] Address Unknown Phone Unavailable Care Team Providers Care Osd Clerk Name Role Phone Migration, Doctor Unavailable Unavailable PROBLEMS Type Condition ICD9-CM Code SYE30-QX Code Onset Dates Condition Status SNOMED Code Problem Generalized anxiety disorder F41.1 Active 79273716 Problem Bipolar disorder, current episode mixed, moderate F31.62 Active 842471737 Problem Acute non intractable tension-type headache G44.209 Active 863723522 Problem Constipation K59.00 Active 15401739 Problem Post traumatic stress disorder F43.10 Active 74259248 Problem Borderline personality disorder F60.3 Active 61963964 Problem Endometriosis N80.9 Active 017242855 Problem Acute right-sided low back pain with right-sided sciatica M54.41 Active [id number] ALLERGIES No Information ENCOUNTERS Encounter Location Date Diagnosis [facility] [id number] [place] [address] 99230- 3059 Feb, [facility] [address] 00571 -5253 Jan, Dehydration E86.0 and Back muscle spasm M62.830 [facility] [address] 37324- 9326 Jan, Bipolar disorder, current episode mixed, moderate F31.62 ; Post traumatic stress disorder F43.10 ; Borderline personality disorder F60.3 and Other oysterman (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 Z79.899 [facility] [id number] [place] [address] 52512 -9858 Jan, Cough R05 and Viral upper respiratory tract infection J06.9 [facility] [address] 91373- 1286 Jan, Bipolar disorder, current episode mixed, moderate F31.62 [facility] [address] 30885- 0146 08 Dec, 2018 Bipolar disorder, current episode mixed, moderate F31.62 [facility] [id number] [place] [address] 39687- 4627 10 Nov, 2018 Bipolar disorder, current episode mixed, moderate F31.62 [facility] [id number] [place] [address] 47762 -0330 Oct, Sore throat J02.[address] [facility] [id number] [place] [address] 83392 -1992 Oct, Abdominal pain R10.9 ; Low back pain M54.5 ; Left shoulder pain M25.512 and Constipation K59.00 [facility] [id number] [place] [address] 17716- 3988 Oct, Bipolar disorder, current episode mixed, moderate F31.62 ; Post traumatic stress disorder F43.10 and Borderline personality disorder F60.3 [facility] [id number] [place] [address] 59536- 6812 Sep, Bipolar disorder, current episode mixed, moderate F31.62 [facility] [id number] [place] [address] 81852- 0269 08 Aug, 2018 Bipolar disorder, current episode mixed, moderate F31.62 [facility] [id number] [place] [address] 98723- 3962 25 Jul, 2018 Thrombophlebitis I80.9 and Pelvic pain R10.2 [facility] [id number] [place] [address] 12791- 9805 05 Jul, 2018 Bipolar disorder, current episode mixed, moderate F31.62 ; Post traumatic stress disorder F43.10 and Borderline personality disorder F60.3 [facility] [id number] [place] [address] 29810- 7103 06 Jun, 2018 Bipolar disorder, current episode mixed, moderate F31.62 [facility] [id number] [place] [address] 86853- 8608 May, Palpitations R00.2 [facility] [id number] [place] [address] 67390- 2086 May, Palpitations R00.2 [facility] [id number] [place] [address] 94674- 5189 12 May, 2018 Palpitations R00.2 and Frequent bowel movements R19.4 [facility] [id number] [place] [address] 74008- 2779 05 May, 2018 Bipolar disorder, current episode mixed, moderate F31.62 ; Post traumatic stress disorder F43.10 and Borderline personality disorder F60.3 [facility] [id number] [place] [address] [id number] 15 Apr, 2018 Dental examination Z01.20 [facility] [id number] [place] [address] 25187 -1402 15 Apr, 2018 [facility] [id number] [place] [address] 39472- 2695 15 Apr, 2018 Dental examination Z01.20 [facility] [id number] [place] [address] 35977 -0253 15 Apr, 2018 Tooth pain K08.89 [facility] [id number] [place] [address] 11022- 1627 06 Apr, 2018 Bipolar disorder, current episode mixed, moderate F31.62 ; Post traumatic stress disorder F43.10 and Borderline personality disorder F60.[address] [facility] [address] [place] [address] 29335 -0680 March, Abdominal pain R10.9 ; UTI symptoms R39.9 and Other microscopic hematuria R31.29 [facility] [id number] [place] [address] 96444- 3361 March, [facility] [id number] [place] [address] 70565- 6731 March, Bipolar disorder, current episode mixed, moderate F31.62 ; Post traumatic stress disorder F43.10 and Borderline personality disorder F60.3 [facility] [address] [place] [address] 51596- 1460 30 Feb, 2018 Encounter for immunization Z23 [facility] [id number] [place] [address] 34526- 8346 16 Feb, 2018 Bipolar disorder, current episode mixed, moderate F31.62 ; Post traumatic stress disorder F43.10 and Borderline personality disorder F60.3 [facility] [id number] [place] [address] 26276- 8086 11 Feb, 2018 Bipolar disorder, current episode mixed, moderate F31.62 ; Post traumatic stress disorder F43.10 ; Borderline personality disorder F60.3 and Other oysterman (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 Z79.899 [facility] [id number] [place] [address] 64729- 8472 30 Jan, 2018 Encounter for immunization Z23 [facility] [id number] [place] [address] 62909- 9459 Jan, [facility] [id number] [place] [address] 63883- 2107 12 Jan, 2018 Bipolar disorder, current episode mixed, moderate F31.62 [facility] [id number] [place] [address] 72725 -0598 Jan, Lumbar back pain M54.5 [facility] [id number] [place] [address] 59560- 3664 28 Dec, 2017 Low back pain M54.5 [facility] [id number] [place] [address] 77995- 3068 13 Dec, 2017 Bipolar disorder, current episode mixed, moderate F31.62 [facility] [id number] [place] [address] 53665- 2997 13 Dec, 2017 Generalized anxiety disorder F41.1 and Bipolar disorder, current episode mixed, moderate F31.62 [facility] [id number] [place] [address] 66925 -8662 Nov, Acute non intractable tension-type headache G44.209 [facility] [id number] [place] [address] 45381- 4027 Nov, Bipolar disorder, current episode mixed, moderate F31.62 ; Post traumatic stress disorder F43.10 and Borderline personality disorder F60.3 [facility] [id number] [place] [address] 40654- 3781 Nov, Bipolar disorder, current episode mixed, moderate F31.[address] [facility] [place] [address] 72673 -2562 Nov, Abdominal pain R10.9 ; History of PCOS Z87.42 ; History of endometriosis Z87.42 and Pelvic pain R10.2 [facility] [id number] [place] [address] 74862- 2783 Nov, [facility] [place] [address] 88106 -4459 Oct, History of PCOS Z87.42 ; History of endometriosis Z87.42 and Pain R52 [facility] [id number] [place] [address] 03740- 4037 Oct, Bipolar disorder, current episode mixed, moderate F31.62 ; Post traumatic stress disorder F43.10 and Borderline personality disorder F60.3 [facility] [id number] [place] [address] 10229- 5340 Oct, Bipolar disorder, current episode mixed, moderate F31.62 [facility] [id number] [place] [address] 71494- 0926 Sep, Bipolar disorder, current episode mixed, moderate F31.62 ; Post traumatic stress disorder F43.10 ; Borderline personality disorder F60.3 and 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 [facility] [id number] [place] [address] 85171- 5162 Sep, Bipolar disorder, current episode mixed, moderate F31.62 [facility] [address] [address] -[address]68 Sep, Endometriosis N80.9 and Acute right-sided low back pain with right-sided sciatica M54.41 [facility] [address] [place] [address] 25267- 7756 Aug, [facility] [id number] [place] [address] 51767- 6427 Aug, Bipolar disorder, current episode mixed, moderate F31.62 ; Post traumatic stress disorder F43.10 and Borderline personality disorder F60.3 [facility] [address] [place] [address] 16809- 6361 11 Aug, 2017 Bipolar disorder, current episode mixed, moderate F31.62 ; Post traumatic stress disorder F43.10 and Borderline personality disorder F60.3 [facility] [address] [place] [address] 37943- 5453 13 Jul, 2017 Bipolar disorder, current episode mixed, moderate F31.62 ; Post traumatic stress disorder F43.10 and Borderline personality disorder F60.3 [facility] [address] [place] [address] 79703 -4240 11 Jul, 2017 Pharyngitis, unspecified etiology J02.9 and Streptococcal pharyngitis J02.0 [facility] [address] [address]- 8115 16 Jun, 2017 Bipolar disorder, current episode mixed, moderate F31.62 ; Post traumatic stress disorder F43.10 and Borderline personality disorder F60.3 [facility] [address] [place] [address] 82069- 4460 May, [facility] [id number] [place] [address] 57401- 7692 May, [facility] [address] [place] [address] 92425- 3555 17 May, 2017 Bipolar disorder, current episode mixed, moderate F31.62 and Generalized anxiety disorder F41.1 [facility] [address] [place] [address] 65695- 7825 March, Bipolar disorder, current episode mixed, moderate F31.62 and Generalized anxiety disorder F41.1 [facility] [id number] [place] [address] 1514 March, Pelvic pain R10.2 [facility] [id number] [place] [address] 39597- 0442 March, [facility] [id number] [place] [address] 71863- 7673 Feb, Bipolar disorder, current episode mixed, moderate F31.62 and Generalized anxiety disorder F41.1 [facility] [id number] [place] [address] 86860- 7115 Jan, [facility] [id number] [place] [address] 52115- 5490 Jan, Bipolar disorder, current episode mixed, moderate F31.62 [facility] [id number] [place] [address] 98932- 6288 Jan, Bipolar disorder, current episode mixed, moderate F31.62 [facility] [id number] [place] [address] 09493- 3118 Jan, Bilateral low back pain without sciatica M54.5 [facility] [id number] [place] [address] [id number] Jan, Dental caries K02.9 and Dental examination Z01.20 [facility] [id number] [place] [address] [id number] Jan, Encounter for dental examination and cleaning without abnormal findings Z01.20 [facility] [id number] [place] [address] 04522- 2304 Jan, Bipolar disorder, current episode mixed, moderate F31.62 and Generalized anxiety disorder F41.1 [facility] [id number] [place] [address] 42639- 0700 Dec, [facility] [address] [place] [address] 12065- 0690 Dec, Bipolar disorder, current episode mixed, moderate F31.62 and Generalized anxiety disorder F41.1 [facility] [id number] [place] [address] 61991- 7330 03 Dec, 2016 Other fatigue R53.83 and Orthostatic hypotension I95.1 [facility] [id number] [place] [address] [id number] Nov, Dental examination Z01.20 [facility] [address] 31516 -3590 Nov, Bronchitis J40 [facility] [id number] [place] [address] 31620- 6475 Oct, Generalized anxiety disorder F41.1 [facility] [address] 35667- 5229 Sep, Bipolar disorder, current episode mixed, moderate F31.62 and Generalized anxiety disorder F41.1 [facility] [id number] [place] [address] 85582- 7246 Sep, Bipolar disorder, current episode mixed, moderate F31.62 and Generalized anxiety disorder F41.1 [facility] [id number] [place] [address] 02487 -5960 08 Jul, 2016 Upper respiratory tract infection, unspecified type J06.9 [facility] [id number] [place] [address] 32304- 6880 Jun, Bipolar disorder, current episode mixed, moderate F31.62 and Generalized anxiety disorder F41.1 [facility] [id number] [place] [address] 01676- 6179 Apr, [facility] [id number] [place] [address] 26396- 8473 Apr, Encounter for test, result positive Z32.01 [facility] [address] [place] [address]- 8765 March, [facility] [id number] [place] [address] 14423- 5801 March, Bipolar disorder, current episode mixed, moderate F31.62 and Generalized anxiety disorder F41.1 [facility] [id number] [place] [address] 24995- 3659 March, Bipolar disorder, current episode mixed, moderate F31.62 and Generalized anxiety disorder F41.1 [facility] [id number] [place] [address] 03589- 2991 March, [facility] [id number] [place] [address] 22510- 4849 March, [facility] [id number] [place] [address] 20709- 6054 Feb, [facility] [id number] [place] [address] 40472- 0793 Feb, [facility] [id number] [place] [address] 41608- 6435 Feb, Bipolar disorder, current episode mixed, moderate F31.62 and Generalized anxiety disorder F41.1 [facility] [address] [place] [address] 97973- 6219 Jan, Abdominal pain R10.9 [facility] [id number] [place] [address] 59017- 9981 14 Jan, 2016 [facility] [address] [place] [address] 90665- 9214 29 Dec, 2015 Dental examination Z01.20 [facility] [id number] [place] [address] 62872- 6743 22 Dec, 2015 Dental examination Z01.20 and Dental caries K02.9 [facility] [address] [place] [address] 98748- 8443 15 Dec, 2015 Bipolar disorder, current episode mixed, moderate F31.62 and Generalized anxiety disorder F41.1 [facility] [address] [place] [address] 09815- 7988 Dec, [facility] [id number] [place] [address] 28237- 1157 Nov, Bipolar disorder, current episode mixed, moderate F31.62 ; Generalized anxiety disorder F41.1 and Seizure-like activity R56.9 [facility] [id number] [place] [address] 79174- 0856 Oct, [facility] [id number] [place] [address] 39663- 8608 Oct, Bipolar disorder, current episode mixed, moderate F31.62 [facility] [id number] [place] [address] 78156- 5810 14 Oct, 2015 Well woman exam Z01.419 [...] Z72.0 and Hot flashes N95.1 [facility] [address] [place] [address] 92608- 8764 Oct, Seizure-like activity R56.9 and Irregular periods N92.6 [facility] [id number] [place] [address] 93265- 1839 07 Oct, 2015 Bipolar disorder, current episode mixed, moderate F31.62 ; Generalized anxiety disorder F41.1 and Underweight R63.6 [facility] [address] [place] [address] 29130- 2805 Oct, [facility] [address] [place] [address]- 3463 Oct, Generalized anxiety disorder F41.1 and Unspecified mood [ affective] disorder F39 [facility] [id number] [place] [address] 76016 -8703 Oct, Back pain M54.9 and Anxiety F41.9 [facility] [id number] [place] [address] 82978- 9103 Oct, [facility] [id number] [place] [address] 99042 -5586 Sep, Arm pain, left M79.602 [facility] [address] 12355- 1764 Sep, [facility] [address] [id number] Sep, Dental examination Z01.20 and Dental caries K02.9 [facility] [id number] [place] [address] 33910- 5544 Sep, Generalized anxiety disorder F41.1 and Unspecified episodic mood disorder F39 [facility] [address] 02335- 5076 Sep, Bilateral low back pain without sciatica M54.5 and Seizure- like activity R56.9 [facility] [id number] [place] [address] 40100- 0658 Aug, [facility] [id number] [place] [address] 12388- 2994 Aug, [facility] [id number] [place] [address] 11009- 2989 Aug, [facility] [id number] [place] [address] 29507- 7320 Aug, Visual changes H53.9 and Bilateral low back pain without sciatica M54.5 [facility] [id number] [place] [address] 03047- 6198 Jul, [facility] [address] [place] [address] 699490- 5021 Jun, Bipolar I disorder, most recent episode (or current) mixed, moderate 296.62 ; Generalized anxiety disorder 300.02 and High risk medication use V58.69 [facility] [id number] [place] [address] 69827- 4996 Jun, [facility] [address] 87818- 3597 May, [facility] [id number] [place] [address] 74015- 5174 May, Bipolar I disorder, most recent episode (or current) mixed, moderate 296.62 and Generalized anxiety disorder 300.02 [facility] [id number] [place] [address] [id number] May, Dental examination V72.2 [facility] [id number] [place] [address] 55533- 1308 March, Bipolar I disorder, most recent episode (or current) mixed, moderate 296.62 and Generalized anxiety disorder 300.02 [facility] [id number] [place] [address] 66216- 0508 March, [facility] [id number] [place] [address] 40039- 6109 March, [facility] [id number] [place] [address] 62886- 1654 March, Underweight 783.22 ; Hand pain, right 729.5 and Reflux gastritis 535.40 [facility] [id number] [place] [address] 42987- 7401 Feb, [facility] [id number] [place] [address] [id number]- 2878 Feb, [facility] [id number] [place] [address] 67211- 7131 Jan, [facility] [place] [facility] [address] [id number] [place] [address]- 4639 18 Jan, 2014 [facility] [place] [facility] [address] [id number] [place] [address]- 1711 16 Jan, 2014 [facility] [place] [facility] [address] [id number] [place] [address]- 9658 16 Jan, 2014 [facility] [place] [facility] [address] [id number] [place] [address]- 1641 Jan, 2014 [facility] [place] [facility] [address] [id number] [place] [address]- 5349 13 Jan, 2015 [facility] [place] [facility] [address] [id number] [place] [address]- 6046 05 Jan, 2015 [facility] [place] [facility] [address] [id number] [place] [address]- 6083 05 Jan, 2015 [facility] [place] [facility] [address] [id number] [place] [address]- 1283 Jan, [facility] [place] [facility] [address] [id number] [place] [address]- 4347 Jan, [facility] [place] [facility] [address] [id number] [place] [address]- 5864 Jan, [facility] [place] [facility] [address] [facility] [id number] [place] [address]- 2588 Jan, [facility] [place] [facility] [address] [id number] [place] [address]- 8601 Dec, [facility] [place] [facility] [address] [id number] [place] [address]- 0233 Dec, [facility] [place] [facility] [address] [id number] [place] [address]- 1949 Dec, [facility] [place] [facility] [address] [id number] [place] [address]- 1307 Dec, [facility] [place] [facility] [address] [id number] [place] [address]- 9879 18 Dec, 2014 [facility] [place] [facility] [address] [id number] [place] [address]- 3096 Dec, 2014 [facility] [place] [facility] [address] [id number] [place] [address] 17 Dec, 2014 [facility] [place] [facility] [address] [facility] [id number] [place] [address] 16 Dec, 2014 [facility] [place] [facility] [address] [id number] [place] [address] Dec, 2014 [facility] [place] [facility] [address] [id number] [place] [address] Dec, 2014 [facility] [place] [facility] [address] [facility] [id number] [place] [address] 05 Dec, 2014 [facility] [place] [facility] [address] [facility] [id number] [place] [address] 05 Dec, 2014 [facility] [place] [facility] [address] [facility] [id number] [place] [address] 05 Dec, 2014 [facility] [place] [facility] [address] [facility] [id number] [place] [address] 04 Dec, 2014 [facility] [place] [facility] [address] [facility] [id number] [place] [address] 04 Dec, 2014 [facility] [place] [facility] [address] [facility] [id number] [place] [address] Dec, 2014 [facility] [place] [facility] [address] [facility] [id number] [place] [address] Dec, 2014 [facility] [place] [facility] [address] [facility] [id number] [place] [address] Dec, 2014 [facility] [place] [facility] [address] [id number] [place] [address] 254 Dec, 2014 [facility] [place] [facility] [address] [facility] [id number] [place] [address] Nov, [facility] [place] [facility] [address] [id number] [place] [address]46 Nov, [facility] [place] [facility] [address] [id number] [place] [address] 2546 Nov, [facility] [place] [facility] [address] [id number] [place] [address] 2546 Nov, [facility] [place] [facility] [address] [id number] [place] [address] 2546 Nov, [facility] [place] [facility] [address] [id number] [place] [address] 2546 Nov, [facility] [place] [facility] [id number] [id number] Nov, [facility] [place] [facility] [address] [id number] [place] [address] Nov, [facility] [place] [facility] [address] [id number], [place] [address] Nov, [facility] [place] [facility] [address] [id number] [id number] Nov, [facility] [place] [facility] [address] [id number], [place] [address] Nov, [facility] [place] [facility] [address] [id number], [place] [address]- 25[address] Nov, [facility] [place] [facility] [address] [id number], [place] [address] Oct, [facility] [place] [facility] [address] [id number], [place] [address] Oct, [facility] [place] [facility] [address] [id number], [place] [address]- 2546 Oct, [facility] [place] [facility] [address] [id number], [place] [address]- 25[address] Oct, [facility] [place] [facility] [address] [id number], [place] [address] Oct, [facility] [place] [facility] [address] [id number] [place] [address] 8286 Oct, [facility] [place] [facility] [address] [id number] [place] [address]- 8634 Oct, [facility] [place] [facility] [address] [facility] [id number] [place] [address]30 Oct, [facility] [place] [facility] [address] [id number] [place] [address] 6164 Oct, [facility] [place] [facility] [address] [id number] [place] [address] 9816 Oct, [facility] [place] [facility] [address] [facility] [id number] [place] [address]- 5285 Oct, [facility] [place] [facility] [address] [facility] [facility] [id number] [place] [address]- 9432 Oct, [facility] [place] [facility] [address] [id number] [place] [address]- 3687 Sep, [facility] [place] [facility] [address] [id number] [place] [address]- 1407 Sep, [facility] [place] [facility] [address] [facility] [id number] [place] [address]- 0247 Sep, [facility] [place] [facility] [address] [id number] [place] [address]- 8751 Sep, [facility] [place] [facility] [address] [id number], [place] [address] 4194 Sep, [facility] [place] [facility] [address] [id number], [place] [address]- 4961 Sep, [facility] [place] [facility] [address] [facility] [id number], [place] [address] Sep, [facility] [place] [facility] [address] [facility] [id number], [place] [address] 7237 Sep, [facility] [place] [facility] [address] [id number] [place] [address]- 8066 Aug, 2013 [facility] [place] [facility] [address] [id number] [place] [address] 0317 28 Aug, 2014 [facility] [place] [facility] [address] [id number] [place] [address] 0228 Aug, [facility] [place] [facility] [address] [id number] [place] [address] Aug, 2013 [facility] [place] [facility] [address] [id number] [place] [address] 1701 Aug, [facility] [place] [facility] [address] [id number] [place] [address]- 4503 10 Aug, 2013 [facility] [place] [facility] [address] [id number] [place] [address]- 4297 08 Aug, 2014 [facility] [place] [facility] [address] [id number] [place] [address]- 8036 08 Aug, 2013 [facility] [place] [facility] [address] [id number] [place] [address]- 8561 Aug, [facility] [place] [facility] [address] [id number] [place] [address]- 1163 07 Aug, 2013 [facility] [place] [facility] [address] [id number] [place] [address]- 4075 Aug, [facility] [place] [facility] [address] [id number] [place] [address]- 5504 07 Aug, 2013 [facility] [place] [facility] [address] [id number] [place] [address]- 5015 03 Aug, 2014 [facility] [place] [facility] [address] [id number] [place] [address] 22 Jul, 2013 [facility] [place] [facility] [address] [id number] [place] 22 Jul, 2013 [facility] [place] [facility] [address] [id number] [place] [address]- 1447 Jul, [facility] [place] [facility] [address] [id number] [place] [address]- 6052 Jul, [facility] [place] [facility] [address] [id number] [place] [address]- 2786 Jun, [facility] [place] [facility] [address] [id number] [place] [address]- 0240 Jun, [facility] [place] [facility] [address] [id number] [place] [address] 7397 Jun, [facility] [place] [facility] [address] [id number] [place] [address]- 9248 Jun, [facility] [place] [facility] [address] [id number] [place] [address]- 9847 Jun, [facility] [place] [facility] [address] [id number] [place] [address]- 2277 Jun, [facility] [place] [facility] [address] [id number] [place] [address]- 6137 May, [facility] [place] [facility] [address] [id number] [place] [address]- 2617 May, [facility] [place] [facility] [address] [id number] [place] [address]- 8782 May, [facility] [place] [facility] [address] [id number] [place] [address]- 8693 May, [facility] [place] [facility] [address] [id number] [place] [address]- 6858 Apr, [facility] [place] [facility] [address] [id number] [place] [address]- 2355 Apr, [facility] [place] [facility] [address] [id number] [place] [address]- 9264 March, [facility] [place] [facility] [address] [id number] [place] [address]- 1564 March, [facility] [place] [facility] [address] [id number] [place] [address]- 8399 March, [facility] [address] [id number] [place] [address]- 0536 March, [facility] [place] [facility] [address] [id number] [place] [address]- 4288 March, [facility] [address] [id number] [place] [address]- 1635 March, [facility] [place] [facility] [address] [id number] [place] [address]- 7627 Feb, [facility] [address] [id number] [place] [address]- 1885 Feb, [facility] [place] [facility] [address] [id number] [place] [address]- 9228 Dec, [facility] [place] [facility] [address] [id number] [place] [address]- 0615 Dec, [facility] [address] [id number] [place] [address]- 0776 Nov, [facility] [place] [facility] [address] [id number] [place] [address]- 6314 Nov, [facility] [address] [id number] [place] [address]- 2128 Sep, [facility] [place] [facility] [address] [id number] [place] [address]- 3156 Sep, [facility] [place] [facility] [address] [id number] [place] [address]- 0460 Sep, [facility] [place] [facility] [address] [id number] [place] [address]- 4590 Sep, [facility] [place] [facility] [address] [id number] [place] [address]- 7954 Sep, [facility] [place] [facility] [address] [id number] [place] [address]- 8484 Sep, [facility] [place] [facility] [address] [id number] [place] [address]- 9013 Sep, [facility] [place] [facility] [address] [id number] [place] [address]- 5296 Aug, [facility] [place] [facility] [address] [id number] [place] [address]- 0659 Aug, [facility] [place] [facility] [address] [id number] [place] [address]- 3662 Aug, [facility] [place] [facility] [address] [id number] [place] [address]- 1595 Aug, [facility] [place] [facility] [address] [id number] [place] [address]- 3312 Aug, [facility] [place] [facility] [address] [id number] [place] [address]- 7947 Aug, [facility] [place] [facility] [address] [id number] [place] [address]- 4696 Jul, [facility] [place] [facility] [address] [id number] [place] [address]- 4827 Jul, [facility] [place] [facility] [address] [id number] [place] [address]- 4849 16 Jul, 2013 [facility] [place] [facility] [address] [id number] [place] [address]- 9861 Jul, [facility] [place] [facility] [address] [id number], [place] [address]- 5377 Jun, [facility] [place] [facility] [address] [id number] [place] [address]- 6793 Jun, [facility] [place] [facility] [address] [id number] [place] [address]- 2772 Jun, [facility] [place] [facility] [address] [id number], [place] [address]- 0879 Jun, [facility] [place] [facility] [address] [id number], [place] [address]- 2314 Jun, [facility] [place] [facility] [address] [id number] [place] [address]- 9505 Jun, [facility] [place] [facility] [address] [id number] [place] Jun, [facility] [place] [facility] [address] [id number] [place] [address]- 3163 May, [facility] [place] [facility] [address] [id number] [place] [address]- 5713 May, [facility] [place] [facility] [address] [id number] [place] [address]- 9255 May, [facility] [place] [facility] [address] [id number] [place] [address]- 9064 May, [facility] [place] [facility] [address] [id number] [place] [address]- 1714 May, [facility] [place] [facility] [address] [id number] [place] [address]- 1058 May, [facility] [place] [facility] [address] [id number] [place] [address]- 7707 May, [facility] [place] [facility] [address] [id number] [place] [address]- 1632 Apr, [facility] [place] [facility] [address] [id number] [place] [address]- 2302 Apr, [facility] [place] [facility] [address] [id number] [place] [address]- 6328 Apr, [facility] [place] [facility] [address] [id number] [place] [address]- 6054 Apr, [facility] [place] [facility] [address] [id number] [place] [address]- 7583 Apr, [facility] [place] [facility] [address] [id number] [place] [address]- 7084 18 Apr, 2013 [facility] [place] [facility] [address] [id number] [place] [address]- 5637 18 Apr, 2013 [facility] [place] [facility] [address] [id number] [place] [address]- 2954 18 Apr, 2013 [facility] [place] [facility] [address] [id number] [place] [address]- 7386 17 Apr, 2013 [facility] [place] [facility] [address] [id number] [place] [address]- 3746 14 Apr, 2013 [facility] [place] [facility] [address] [id number] [place] [address]- 5496 14 Apr, 2013 [facility] [place] [facility] [address] [id number] [place] [address]- 6717 11 Apr, 2013 [facility] [place] [facility] [address] [id number] [place] [address]- 7849 10 Apr, 2013 [facility] [place] [facility] [address] [id number] [place] [address]- 5220 09 Apr, 2013 [facility] [place] [facility] [address] [id number] [place] [address]- 9403 07 Apr, 2013 [facility] [place] [facility] [address] [id number] [place] [address]- 9632 06 Apr, 2013 [facility] [place] [facility] [address] [id number] [place] [address]- 4164 06 Apr, 2013 [facility] [place] [facility] [address] [id number] [place] [address]- 6215 05 Apr, 2013 [facility] [place] [facility] [address] [id number] [place] [address]- 9582 Apr, [facility] [place] [facility] [address] [id number] [place] [address]- 5004 March, [facility] [place] [facility] [address] [id number] [place] [address]- 9810 March, [facility] [place] [facility] [address] [id number] [place] [address]- 3503 March, [facility] [address] [id number] [place] [address]- 6465 March, [facility] [address] [id number] [place] [address]- 3101 March, [facility] [address] [id number] [place] [address]- 9981 March, [facility] [address] [id number] [place] [address]- 3437 March, [facility] [address] [id number] [place] [address]- 9856 Feb, [facility] [address] [id number] [place] [address]- 6094 Feb, [facility] [address] [id number] [place] [address]- 6368 Jan, [facility] [address] [id number] [place] [address]- 9985 18 Jan, 2013 [facility] [address] [id number] [place] [address]- 9688 15 Jan, 2013 [facility] [address] [id number] [place] [address]- 3033 14 Jan, 2013 [facility] [address] [id number] [place] [address]- 6706 Jan, [facility] [place] [facility] [address] [id number], [place] [address]- 6640 Jan, [facility] [place] [facility] [address] [id number] [place] [address]- 8578 Jan, [facility] [place] [facility] [address] [id number] [place] [address]- 9056 09 Jan, 2013 [facility] [place] [facility] [address] [id number] [place] [address]- 0822 08 Jan, 2013 [facility] [place] [facility] [address] [id number] [place] [address]- 1702 07 Jan, 2013 [facility] [place] [facility] [address] [id number] [place] [address]- 4195 06 Jan, 2013 [facility] [place] [facility] [address] [id number] [place] [address]- 5255 17 Nov, 2012 [facility] [place] [facility] [address] [id number] [place] [address]- 3766 Oct, [facility] [place] [facility] [address] [id number] [place] [address]- 6006 Oct, [facility] [place] [facility] [address] [id number] [place] [address]- 2872 Oct, [facility] [place] [facility] [address] [id number] [place] [address]- 1556 Oct, [facility] [place] [facility] [address] [id number] [place] [address]- 6252 Sep, [facility] [place] [facility] [address] [id number] [place] [address]- 2931 30 Sep, 2012 [facility] [place] [facility] [address] [id number] [place] [address]- 1619 Sep, [facility] [place] [facility] [address] [facility] [id number] [place] [address]- 1971 Sep, [facility] [place] [facility] [address] [id number] [place] [address]- 1784 16 Sep, 2012 [facility] [place] [facility] [address] [id number] [place] [address]- 8988 Sep, [facility] [place] [facility] [address] [id number] [place] [address]- 2453 16 Sep, 2012 [facility] [place] [facility] [address] [id number] [place] [address]- 9996 Sep, [facility] [place] [facility] [address] [facility] [id number] [place] 5264 Sep, [facility] [place] [facility] [address] [id number] [place] [address]- 5002 Sep, [facility] [place] [facility] [address] [id number] [place] [address]- 5693 Sep, [facility] [place] [facility] [address] [id number] [place] [address]- 9830 Aug, [facility] [place] [facility] [address] [id number] [place] [address]- 0851 Aug, [facility] [place] [facility] [address] [id number] [place] [address]- 4639 Aug, [facility] [place] [facility] [address] [id number] [place] [address]- 9417 28 Jul, 2012 [facility] [place] [facility] [address] [id number] [place] [address]- 1083 25 Jul, 2012 [facility] [place] [facility] [address] [id number] [place] [address]- 2523 19 Jul, 2012 [facility] [place] [facility] [address] [id number] [place] [address]- 7407 17 Jul, 2012 [facility] [place] [facility] [address] [id number] [place] [address]- 5980 20 Jun, 2012 [facility] [place] [facility] [address] [id number] [place] [address]- 3541 16 Jun, 2012 [facility] [place] [facility] [address] [id number] [place] [address]- 3527 15 Jun, 2012 [facility] [place] [facility] [address] [id number] [place] [address]- 3314 15 Jun, 2012 [facility] [place] [facility] [address] [id number] [place] [address]- 2824 Jun, [facility] [place] [facility] [address] [id number] [place] [address]- 4244 March, [facility] [place] [facility] [address] [id number] [place] [address]- 8783 04 Feb, 2012 [facility] [place] [facility] [address] [id number] [place] [address]- 2936 28 Jan, 2012 [facility] [place] [facility] [address] [id number] [place] [address]- 6556 27 Jan, 2012 [facility] [place] [facility] [address] [facility] [id number] [place] [address]- 8266 22 Jan, 2012 [facility] [place] [facility] [address] [id number] [place] [address]- 5059 14 Jan, 2012 [facility] [place] [facility] [address] [id number] [place] [address]- 9334 14 Jan, 2012 [facility] [place] [facility] [address] [id number] [place] [address]- 1514 14 Jan, 2012 [facility] [place] [facility] [address] [id number] [place] [address]- 7174 28 Dec, 2011 [facility] [place] [facility] [address] [id number] [place] [address]- 2941 27 Dec, 2011 [facility] [place] [facility] [address] [id number] [place] [address]- 2393 23 Dec, 2011 [facility] [place] [facility] [address] [facility] [id number] [place] [address]- 4288 21 Dec, 2011 [facility] [place] [facility] [address] [id number] [place] [address]- 6556 20 Dec, 2011 [facility] [place] [facility] [address] [id number] [place] [address] 19 Dec, 2011 [facility] [place] [facility] [address] [id number] [place] [address] 17 Dec, 2011 [facility] [place] [facility] [address] [id number] [place] [address] 16 Dec, 2011 [facility] [place] [facility] [address] [facility] [id number] [place] [address] 31 Nov, 2011 [facility] [place] [facility] [id number] [address] Oct, [facility] [id number] [place] [address] Sep, [facility] [id number], [place] [address] Sep, [facility] [id number], [place] [address] Sep, [facility] [id number], [place] [address] Sep, [facility] [id number] [place] [address] Sep, [facility] [id number], [place] [address] Sep, [facility] [id number], [place] [address] Jan, [facility] [id number], [place] [address] Apr, IMMUNIZATIONS No Known Immunizations SOCIAL HISTORY Never Assessed REASON FOR VISIT [facility] [place] [...]
--- OUTSIDE RECORDS SUMMARY | 2019-03-04 16:36 | XMS REPORT ---
Author Author Migration, Doctor Organization [facility] Address Unknown Phone Unavailable Care Team Providers Care Combiner Name Role Phone Migration, Doctor Unavailable Unavailable PROBLEMS Type Condition ICD9-CM Code KLE71-TI Code Onset Dates Condition Status SNOMED Code Problem Generalized anxiety disorder F41.1 Active 46089812 Problem Bipolar disorder, current episode mixed, moderate F31.62 Active 319924463 Problem Acute non intractable tension-type headache G44.209 Active 748374365 Problem Constipation K59.00 Active 90428836 Problem Post traumatic stress disorder F43.10 Active 31860360 Problem Borderline personality disorder F60.3 Active 17958825 Problem Endometriosis N80.9 Active 373412793 Problem Acute right-sided low back pain with right-sided sciatica M54.41 Active [id number] ALLERGIES No Information ENCOUNTERS Encounter Location Date Diagnosis [facility], [place] [id number] [place] [address] 42055- 8222 Feb, [facility], [place] [address] 35685- 9967 Feb, [facility], [place] [id number] [place] [address] 01385- 6811 Jan, Bipolar disorder, current episode mixed, moderate F31.62 ; Post traumatic stress disorder F43.10 ; Borderline personality disorder F60.3 and Other long term care social worker (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 Z79.899 [facility] [id number] [place] [address] 57631 -9932 Jan, Cough R05 and Viral upper respiratory tract infection J06.9 [facility], [place] [id number] [place] [address] 63273- 8362 Jan, Bipolar disorder, current episode mixed, moderate F31.62 [facility], [place] [id number] [place] [address] 80229- 4606 Dec, Bipolar disorder, current episode mixed, moderate F31.62 [facility], [place] [address] [place] [address] 38880- 2676 Nov, Bipolar disorder, current episode mixed, moderate F31.62 [facility] [address] [place] [address] 03916 -0969 Oct, Sore throat J02.9 [facility] [id number] [place] [address] 34421 -6624 Oct, Abdominal pain R10.9 ; Low back pain M54.5 ; Left shoulder pain M25.512 and Constipation K59.00 [place] [id number] [place] [address] 23951- 5014 Oct, Bipolar disorder, current episode mixed, moderate F31.62 ; Post traumatic stress disorder F43.10 and Borderline personality disorder F60.3 [place] [id number] [place] [address] 52690- 7043 Sep, Bipolar disorder, current episode mixed, moderate F31.62 [place] [id number] [place] [address] 98492- 9732 Aug, Bipolar disorder, current episode mixed, moderate F31.62 [place] [id number] [place] [address] 14909- 5072 Jul, Thrombophlebitis I80.9 and Pelvic pain R10.2 [place] [id number] [place] [address] 40657- 2312 05 Jul, 2018 Bipolar disorder, current episode mixed, moderate F31.62 ; Post traumatic stress disorder F43.10 and Borderline personality disorder F60.3 [place] [id number] [place] [address] 85800- 9612 Jun, Bipolar disorder, current episode mixed, moderate F31.62 [facility], [place] [id number] [place] [address] 15387- 9151 May, Palpitations R00.2 [facility], [place] [address] [place] [address] 33241- 2484 13 May, 2018 Palpitations R00.2 [facility], [place] [address] 40529- 3401 12 May, 2018 Palpitations R00.2 and Frequent bowel movements R19.4 [facility], [place] [id number] [place] [address] 00911- 7553 05 May, 2018 Bipolar disorder, current episode mixed, moderate F31.62 ; Post traumatic stress disorder F43.10 and Borderline personality disorder F60.3 [facility] [id number] [place] [address] [phone] 15 Apr, 2018 Dental examination Z01.20 [facility] [id number] [place] [address] 93474 -1300 15 Apr, 2018 [facility], [place] [address] 51777- 2064 15 Apr, 2018 Dental examination Z01.20 [facility] [id number] [place] [address] 80734 -8227 15 Apr, 2018 Tooth pain K08.89 [place] [id number] [place] [address] 27811- 3697 06 Apr, 2018 Bipolar disorder, current episode mixed, moderate F31.62 ; Post traumatic stress disorder F43.10 and Borderline personality disorder F60.3 [facility] [id number] [place] [address] 44394 -2961 March, Abdominal pain R10.9 ; UTI symptoms R39.9 and Other microscopic hematuria R31.29 [place] [id number] [place] [address] 07068- 2082 March, [facility], [place] [id number] [place] [address] 28323- 7806 March, Bipolar disorder, current episode mixed, moderate F31.62 ; Post traumatic stress disorder F43.10 and Borderline personality disorder F60.3 [place] [id number] [place] [address] 86593- 8594 30 Feb, 2018 Encounter for immunization Z23 [facility], [place] [address] 36320- 6760 16 Feb, 2018 Bipolar disorder, current episode mixed, moderate F31.62 ; Post traumatic stress disorder F43.10 and Borderline personality disorder F60.3 [place] [address] 92342- 6234 11 Feb, 2018 Bipolar disorder, current episode mixed, moderate F31.62 ; Post traumatic stress disorder F43.10 ; Borderline personality disorder F60.3 and Other nursing home (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 Z79.899 [place] [address] 57749- 1698 30 Jan, 2018 Encounter for immunization Z23 [place] [address] 19872- 5049 Jan, [place] [address] 88521- 2737 Jan, Bipolar disorder, current episode mixed, moderate F31.62 [facility] [address] 62923 -2337 Jan, Lumbar back pain M54.5 [place] [address] 32224- 9525 Dec, Low back pain M54.5 [place] [address] 99183- 9374 13 Dec, 2017 Bipolar disorder, current episode mixed, moderate F31.62 [place] [address] 92972- 4782 Dec, Generalized anxiety disorder F41.1 and Bipolar disorder, current episode mixed, moderate F31.62 [facility] [id number] [place] [address] 04671 -7771 Nov, Acute non intractable tension-type headache G44.209 [facility], [place] [address] [place] [address] 77048- 4917 Nov, Bipolar disorder, current episode mixed, moderate F31.62 ; Post traumatic stress disorder F43.10 and Borderline personality disorder F60.3 [place] [address] [place] [address] 92094- 4872 Nov, Bipolar disorder, current episode mixed, moderate F31.62 [facility] [place] [id number] [place] [address] 66742 -6708 Nov, Abdominal pain R10.9 ; History of PCOS Z87.42 ; History of endometriosis Z87.42 and Pelvic pain R10.2 [place] [id number] [place] [address] 93671- 1277 Nov, [facility] [place] [id number] [place] [address] 14198 -3160 Oct, History of PCOS Z87.42 ; History of endometriosis Z87.42 and Pain R52 [place] [id number] [place] [address] 44746- 2012 Oct, Bipolar disorder, current episode mixed, moderate F31.62 ; Post traumatic stress disorder F43.10 and Borderline personality disorder F60.3 [place] [address] [place] [address] 44556- 1060 Oct, Bipolar disorder, current episode mixed, moderate F31.62 [place] [id number] [place] [address] 62607- 1486 Sep, Bipolar disorder, current episode mixed, moderate F31.62 ; Post traumatic stress disorder F43.10 ; Borderline personality disorder F60.3 and Other nursing home (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 Z79.899 [place] [id number] [place] [address] 91185- 9034 Sep, Bipolar disorder, current episode mixed, moderate F31.62 [facility] [address] 54570 -0444 Sep, Endometriosis N80.9 and Acute right-sided low back pain with right-sided sciatica M54.41 [facility], [place] [id number] [place] [address] 20260- 7495 Aug, [facility], [place] [address] [place] [address] 52730- 4096 Aug, Bipolar disorder, current episode mixed, moderate F31.62 ; Post traumatic stress disorder F43.10 and Borderline personality disorder F60.3 [facility], [place] [address] [place] [address] 70549- 6101 11 Aug, 2017 Bipolar disorder, current episode mixed, moderate F31.62 ; Post traumatic stress disorder F43.10 and Borderline personality disorder F60.3 [facility], [place] [address] [place] [address] 00938- 7301 13 Jul, 2017 Bipolar disorder, current episode mixed, moderate F31.62 ; Post traumatic stress disorder F43.10 and Borderline personality disorder F60.3 [facility] [address] [place] [address] 35492 -4590 11 Jul, 2017 Pharyngitis, unspecified etiology J02.9 and Streptococcal pharyngitis J02.0 [facility], [place] [address] [place] [address] 46756- 8985 16 Jun, 2017 Bipolar disorder, current episode mixed, moderate F31.62 ; Post traumatic stress disorder F43.10 and Borderline personality disorder F60.3 [facility], [place] [address] [place] [address] 45320- 6540 May, [facility], [place] [id number] [place] [address] 58737- 3790 May, [facility], [place] [id number] [place] [address] 36289- 6861 17 May, 2017 Bipolar disorder, current episode mixed, moderate F31.62 and Generalized anxiety disorder F41.1 [facility], [place] [id number] [place] [address] 43120- 5721 March, Bipolar disorder, current episode mixed, moderate F31.62 and Generalized anxiety disorder F41.1 [facility], [place] [id number] [place] [address]- 8372 March, Pelvic pain R10.2 [facility], [place] [id number] [place] [address] 41303- 2280 March, [facility], [place] [id number] [place] [address] 43414- 1320 Feb, Bipolar disorder, current episode mixed, moderate F31.62 and Generalized anxiety disorder F41.1 [place] [address] 13557- 5572 Jan, [facility], [place] [id number] [place] [address] 98647- 4335 Jan, Bipolar disorder, current episode mixed, moderate F31.62 [facility], [place] [id number] [place] [address] 70223- 9690 Jan, Bipolar disorder, current episode mixed, moderate F31.62 [facility], [place] [id number] [place] [address] 55124- 2021 Jan, Bilateral low back pain without sciatica M54.5 [facility] [id number] [place] [address] [id number] Jan, Dental caries K02.9 and Dental examination Z01.20 [facility] [id number] [place] [address] [phone] 09 Jan, 2017 Encounter for dental examination and cleaning without abnormal findings Z01.20 [facility], [place] [id number] [place] [address] 06993- 8977 Jan, Bipolar disorder, current episode mixed, moderate F31.62 and Generalized anxiety disorder F41.1 [facility], [place] [id number] [place] [address] 25019- 5466 Dec, [facility], [place] [id number] [place] [address] 45116- 2273 06 Dec, 2016 Bipolar disorder, current episode mixed, moderate F31.62 and Generalized anxiety disorder F41.1 [place] [id number] [place] [address] 45668- 6195 03 Dec, 2016 Other fatigue R53.83 and Orthostatic hypotension I95.1 [facility] [id number] [place] [address] [id number] Nov, Dental examination Z01.20 [facility] [id number] [place] [address] 00792 -9751 Nov, Bronchitis J40 [place] [address] 96460- 0925 Oct, Generalized anxiety disorder F41.1 [place] [address] 68971- 5994 14 Sep, 2016 Bipolar disorder, current episode mixed, moderate F31.62 and Generalized anxiety disorder F41.1 [place] [id number] [place] [address] 78741- 9049 Sep, Bipolar disorder, current episode mixed, moderate F31.62 and Generalized anxiety disorder F41.1 [facility] [address] [place] [address] 92603 -7161 08 Jul, 2016 Upper respiratory tract infection, unspecified type J06.9 [place] [id number] [place] [address] 07148- 8080 Jun, Bipolar disorder, current episode mixed, moderate F31.62 and Generalized anxiety disorder F41.1 [place] [address] 47952- 6515 Apr, [place] [id number] [place] [address] 67215- 7649 Apr, Encounter for test, result positive Z32.01 [place] [address] 88255- 0458 March, [facility], [place] [id number] [address]- 7437 March, Bipolar disorder, current episode mixed, moderate F31.62 and Generalized anxiety disorder F41.1 [facility], [place] [id number] [address]- 7439 March, Bipolar disorder, current episode mixed, moderate F31.62 and Generalized anxiety disorder F41.1 [facility], [place] [id number] [place] [address] 98910- 7508 March, [facility], [place] [id number] [place] [address] 49069- 1203 March, [facility], [place] [id number] [place] [address] 65095- 0140 Feb, [facility], [place] [id number] [place] [address] 65289- 5786 Feb, [facility], [place] [id number] [place] [address] 86246- 9448 Feb, Bipolar disorder, current episode mixed, moderate F31.62 and Generalized anxiety disorder F41.1 [facility], [place] [address] [place] [address] 21191- 1994 22 Jan, 2016 Abdominal pain R10.9 [facility], [place] [address] [place] [address] 73296- 4910 14 Jan, 2016 [facility], [place] [address] [place] [address] 12565- 4350 29 Dec, 2015 Dental examination Z01.20 [facility], [place] [id number] [place] [address] 02041- 1835 22 Dec, 2015 Dental examination Z01.20 and Dental caries K02.9 [facility], [place] [address] [address]- 3571 15 Dec, 2015 Bipolar disorder, current episode mixed, moderate F31.62 and Generalized anxiety disorder F41.1 [place] [address] [place] [address] 59215- 4544 15 Dec, 2015 [place] [id number] [place] [address] 13684- 0775 Nov, Bipolar disorder, current episode mixed, moderate F31.62 ; Generalized anxiety disorder F41.1 and Seizure-like activity R56.9 [place] [id number] [place] [address] 15299- 8879 Oct, [place] [id number] [place] [address] 55145- 1932 Oct, Bipolar disorder, current episode mixed, moderate F31.62 [place] [id number] [place] [address] 08094- 4498 14 Oct, 2015 Well woman exam Z01.419 [...] Tobacco use Z72.0 and Hot flashes N95.1 [place] [id number] [place] [address] 39870- 8332 09 Oct, 2015 Seizure-like activity R56.9 and Irregular periods N92.6 [place] [id number] [place] [address] 36444- 6264 07 Oct, 2015 Bipolar disorder, current episode mixed, moderate F31.62 ; Generalized anxiety disorder F41.1 and Underweight R63.6 [place] [address] [place] [address] 32699- 2033 Oct, [place] [id number] [place] [address] 43188- 9901 Oct, Generalized anxiety disorder F41.1 and Unspecified mood [ affective] disorder F39 [facility] [address] [place] [address] 96534 -9374 Oct, Back pain M54.9 and Anxiety F41.9 [facility], [place] [id number] [place] [address] 93024- 7274 Oct, [facility] [id number] [place] [address] 40557 -3843 Sep, Arm pain, left M79.602 [facility], [place] [id number] [place] [address] 36962- 5655 Sep, [facility] [id number] [place] [address] [id number] Sep, Dental examination Z01.20 and Dental caries K02.9 [facility], [place] [id number] [place] [address] 33703- 0162 Sep, Generalized anxiety disorder F41.1 and Unspecified episodic mood disorder F39 [facility], [place] [id number] [place] [address] 26425- 9503 Sep, Bilateral low back pain without sciatica M54.5 and Seizure- like activity R56.9 [facility], [place] [id number] [place] [address] 21339- 9041 Aug, [facility], [place] [id number] [place] [address] 57301- 2297 Aug, [facility], [place] [id number] [place] [address] 18157- 2548 Aug, [facility], [place] [id number] [place] [address] 22882- 1230 Aug, Visual changes H53.9 and Bilateral low back pain without sciatica M54.5 [facility], [place] [id number] [place] [address] 84005- 0594 Jul, [facility], [place] [address] [address]- 1134 Jun, Bipolar I disorder, most recent episode (or current) mixed, moderate 296.62 ; Generalized anxiety disorder 300.02 and High risk medication use V58.69 [facility], [place] [address] [address]- 0625 Jun, [facility], [place] [id number] [place] [address] 82284- 8754 May, [facility] [place] [id number] [place] [address] 68225- 9377 May, Bipolar I disorder, most recent episode (or current) mixed, moderate 296.62 and Generalized anxiety disorder 300.02 [facility] [address] [place] [address] [id number] May, Dental examination V72.2 [facility], [place] [id number] [place] [address] 21624- 2316 March, Bipolar I disorder, most recent episode (or current) mixed, moderate 296.62 and Generalized anxiety disorder 300.02 [facility] [place] [id number] [place] [address] 21308- 1725 March, [facility] [place] [id number] [place] [address] 55936- 3808 March, [facility], [place] [address] [place] [address] 83229- 4911 March, Underweight 783.22 ; Hand pain, right 729.5 and Reflux gastritis 535.40 [facility], [place] [address] [place] [address] 22157- 4583 Feb, [facility] [place] [id number] [place] [address] 13260- 8131 Feb, [facility], [place] [address] [place] [address] 70509- 4167 Jan, [facility], [place] [id number] [place] [address] 53995- 4988 18 Jan, 2015 [facility] [place] [facility] [address] [id number] [place] [address]- 2119 Jan, [facility] [place] [facility] [address] [id number] [place] [address]- 5314 16 Jan, 2015 [facility] [place] [facility] [address] [facility] [id number] [place] [address]- 7050 Jan, [facility] [place] [facility] [address] [id number] [place] [address] Jan, [facility] [place] [facility] [address] [id number] [place] [address] Jan, [facility] [place] [facility] [address] [facility] [id number] [place] [address] 05 Jan, 2015 [facility] [place] [facility] [address] [facility] [id number] [place] [address] Jan, [facility] [place] [facility] [address] [facility] [id number] [place] [address] Jan, [facility] [place] [facility] [address] [facility] [id number] [place] [address] Jan, [facility] [place] [facility] [address] [facility] [id number] [place] [address] Jan, [facility] [place] [facility] [address] [facility] [id number], [place] [address] Dec, 2014 [facility] [place] [facility] [address] [facility] [id number], [place] [address] Dec, [facility] [place] [facility] [address] [id number] [place] [address] Dec, 2014 [facility] [place] [facility] [address] [facility] [id number], [place] [address] Dec, 2014 [facility] [place] [facility] [address] [facility] [id number], [place] [address] 18 Dec, 2014 [facility] [place] [facility] [address] [id number] [place] [address] 254 Dec, 2014 [facility] [place] [facility] [address] [id number] [place] [address] Dec, 2014 [facility] [place] [facility] [address] [id number] [place] [address] 16 Dec, 2014 [facility] [place] [facility] [address] [id number] [place] [address] Dec, 2014 [facility] [place] [facility] [address] [id number] [place] [address] Dec, 2014 [facility] [place] [facility] [address] [id number] [place] [address] Dec, 2014 [facility] [place] [facility] [address] [id number] [place] [address] Dec, 2014 [facility] [place] [facility] [address] [facility] [id number] [place] [address] Dec, 2014 [facility] [place] [facility] [address] [id number] [place] [address] Dec, 2014 [facility] [place] [facility] [address] [facility] [id number] [place] [address] Dec, 2014 [facility] [place] [facility] [address] [facility] [id number] [place] [address]- [address]32 Dec, 2014 [facility] [place] [facility] [address] [id number] [place] [address]40 Dec, 2014 [facility] [place] [facility] [address] [id number] [place] [address]- 7844 Dec, 2014 [facility] [place] [facility] [address] [id number] [place] [address] 2712 Dec, 2014 [facility] [place] [facility] [address] [facility] [id number] [place] [address]- 3631 Nov, [facility] [place] [facility] [address] [id number] [place] [address]46 Nov, [facility] [address] [id number] [place] [address]- 9316 Nov, [facility] [address] [id number] [place] [address]- 2546 Nov, [facility] [address] [id number] [place] [address]- 3756 Nov, [facility] [address] [id number] [place] [address]- 2546 Nov, [facility] [address] [id number] [place] [id number] Nov, [facility] [address] [id number] [place] [address] 2546 Nov, [facility] [address] [id number] [place] [address]- 2936 Nov, [facility] [address] [id number] [place] [id number] Nov, [facility] [place] [facility] [address] [id number] [place] [address]- 3456 Nov, [facility] [address] [id number] [place] [address]- 9756 Nov, [facility] [address] [id number] [place] [address] 3336 Oct, [facility] [place] [facility] [address] [id number] [place] [address]- 2933 Oct, [facility] [place] [facility] [address] [id number] [place] [address]- 1286 Oct, [facility] [place] [facility] [address] [id number] [place] [address]- 9816 Oct, [facility] [place] [facility] [address] [id number] [place] [address]- 4426 Oct, [facility] [place] [facility] [address] [id number] [place] [address]- 5477 Oct, [facility] [place] [facility] [address] [id number] [place] [address] Oct, [facility] [place] [facility] [address] [id number] [place] [address]- 6658 Oct, [facility] [place] [facility] [address] [id number] [place] [address]- 6487 Oct, [facility] [place] [facility] [address] [id number] [place] [address]- 7964 Oct, [facility] [place] [facility] [address] [id number] [place] [address]- 0182 Oct, [facility] [place] [facility] [address] [id number] [place] [address]- 0634 Oct, [facility] [place] [facility] [address] [id number] [place] [address]- 1295 Sep, [facility] [place] [facility] [address] [id number] [place] [address]- 3458 Sep, [facility] [place] [facility] [address] [id number] [place] [address]- 1295 Sep, [facility] [place] [facility] [address] [id number] [place] [address]- 4131 Sep, [facility] [place] [facility] [address] [id number] [place] [address]- 3247 Sep, [facility] [place] [facility] [address] [id number] [place] [address]- 6056 Sep, [facility] [place] [facility] [address] [id number] [place] [address]- 0831 Sep, [facility] [place] [facility] [address] [id number] [place] [address] Sep, [facility] [place] [facility] [address] [id number] [place] [address]- 6139 Aug, [facility] [place] [facility] [address] [id number] [place] [address]- 4066 Aug, [facility] [place] [facility] [address] [id number] [place] [address]- 7177 Aug, [facility] [place] [facility] [address] [id number] [place] [address]- 1571 Aug, [facility] [place] [facility] [address] [id number] [place] [address]- 9895 Aug, [facility] [place] [facility] [address] [id number] [place] [address]- 4568 10 Aug, 2014 [facility] [place] [facility] [address] [id number] [place] [address]- 3142 08 Aug, 2014 [facility] [place] [facility] [address] [id number] [place] [address]- 5127 08 Aug, 2014 [facility] [place] [facility] [address] [id number] [place] [address]- 1284 Aug, [facility] [place] [facility] [address] [id number] [place] [address]- 8184 Aug, [facility] [place] [facility] [address] [id number] [place] [address]- 5653 Aug, [facility] [place] [facility] [address] [id number] [address] 07 Aug, 2014 [facility] [place] [facility] [address] [id number], [place] [address]- [address] Aug, [facility] [place] [facility] [address] [id number] [place] [address]- 8558 22 Jul, 2013 [facility] [place] [facility] [address] [id number] [place] [address]- 4336 22 Jul, 2013 [facility] [place] [facility] [address] [id number] [place] [address]- 2331 19 Jul, 2013 [facility] [place] [facility] [address] [id number] [place] [address]- 9022 Jul, [facility] [place] [facility] [address] [id number] [place] [address]- 5435 Jun, [facility] [place] [facility] [address] [id number] [place] [address]- 2727 Jun, [facility] [place] [facility] [address] [id number] [place] [address]- 0439 Jun, [facility] [place] [facility] [address] [id number] [place] [address]- 9788 Jun, [facility] [place] [facility] [address] [id number] [place] [address]- 2187 Jun, [facility] [place] [facility] [address] [id number] [place] [address]- 0455 Jun, [facility] [place] [facility] [address] [id number] [place] [address]- 2579 May, [facility] [place] [facility] [address] [id number] [place] [address]- 3826 May, [facility] [place] [facility] [address] [id number] [place] [address]- 2669 May, [facility] [place] [facility] [address] [id number] [place] [address]- 1186 May, [facility] [place] [facility] [address] [id number] [place] [address]- 1880 Apr, [facility] [place] [facility] [address] [id number] [place] [address]- 3331 Apr, [facility] [place] [facility] [address] [id number] [place] [address]- 6385 March, [facility] [place] [facility] [address] [id number] [place] [address]- 4186 March, [facility] [place] [facility] [address] [id number] [place] [address]- 6512 March, [facility] [place] [facility] [address] [id number] [place] [address]- 4609 March, [facility] [place] [facility] [address] [id number] [place] [address]- 8916 March, [facility] [place] [facility] [address] [id number] [place] [address]- 6585 March, [facility] [place] [facility] [address] [id number] [place] [address]- 0835 Feb, [facility] [place] [facility] [address] [id number] [place] [address]- 3978 Feb, [facility] [place] [facility] [address] [id number] [place] [address]- 1531 Dec, [facility] [place] [facility] [address] [id number] [place] [address]- 6518 Dec, [facility] [place] [facility] [address] [id number] [place] [address]- 4666 Nov, [facility] [place] [facility] [address] [id number] [place] [address]- 9190 Nov, [facility] [place] [facility] [address] [id number] [place] [address]- 3560 Sep, [facility] [place] [facility] [address] [id number] [place] [address]- 8965 Sep, [facility] [place] [facility] [address] [id number], [place] [address]- 5693 Sep, [facility] [place] [facility] [address] [id number] [place] [address]- 6461 Sep, [facility] [place] [facility] [address] [id number] [place] [address]- 2923 Sep, [facility] [place] [facility] [address] [id number] [place] [address]- 7029 Sep, [facility] [place] [facility] [address] [id number] [place] [address]- 5886 Sep, [facility] [place] [facility] [address] [id number] [place] [address]- 9221 Aug, [facility] [place] [facility] [address] [id number] [place] [address] Aug, [facility] [place] [facility] [address] [id number] [place] [address]- 7324 Aug, [facility] [place] [facility] [address] [id number] [place] [address]- 9866 Aug, [facility] [place] [facility] [address] [id number] [place] [address]- 8430 Aug, [facility] [place] [facility] [address] [id number] [place] [address]- 1428 Aug, [facility] [place] [facility] [address] [id number] [place] [address]- 5646 Jul, [facility] [place] [facility] [address] [id number] [place] [address]- 3795 Jul, [facility] [place] [facility] [address] [id number] [place] [address]- 5951 16 Jul, 2013 [facility] [place] [facility] [address] [id number] [place] [address]- 2221 Jul, [facility] [place] [facility] [address] [id number] [place] [address]- 2191 Jun, [facility] [place] [facility] [address] [id number] [place] [address]- 7314 Jun, [facility] [place] [facility] [address] [id number] [place] [address]- 1741 Jun, [facility] [place] [facility] [address] [id number] [place] [address]- 9329 Jun, [facility] [place] [facility] [address] [id number] [place] [address]- 5480 Jun, [facility] [place] [facility] [address] [id number] [place] [address]- 1692 Jun, [facility] [place] [facility] [address] [id number] [place] [address]- 1025 Jun, [facility] [place] [facility] [address] [id number] [place] [address]- 3871 May, [facility] [place] [facility] [address] [id number] [place] [address]- 0432 May, [facility] [place] [facility] [address] [id number] [place] [address]- 6558 May, [facility] [place] [facility] [address] [id number] [place] [address]- 4070 May, [facility] [place] [facility] [address] [id number] [place] [address]- 4997 May, [facility] [place] [facility] [address] [id number] [place] [address]- 8306 May, [facility] [place] [facility] [address] [id number] [place] [address]- 6604 May, [facility] [place] [facility] [address] [id number] [place] [address]- 7827 Apr, [facility] [place] [facility] [address] [id number] [place] [address]- 7428 Apr, [facility] [place] [facility] [address] [id number] [place] [address]- 5184 Apr, [facility] [place] [facility] [address] [id number] [place] [address]- 4790 Apr, [facility] [place] [facility] [address] [id number] [place] [address]- 8622 Apr, [facility] [place] [facility] [address] [id number] [place] [address]- 2228 18 Apr, 2013 [facility] [place] [facility] [address] [id number] [place] [address]- 8864 18 Apr, 2013 [facility] [place] [facility] [address] [id number] [place] [address]- 4824 18 Apr, 2013 [facility] [place] [facility] [address] [id number] [place] [address]- 5489 17 Apr, 2013 [facility] [place] [facility] [address] [id number] [place] [address]- 0438 14 Apr, 2013 [facility] [place] [facility] [address] [id number] [place] [address]- 0040 14 Apr, 2013 [facility] [place] [facility] [address] [id number] [place] [address]- 9627 11 Apr, 2013 [facility] [place] [facility] [address] [id number] [place] [address]- 3220 10 Apr, 2013 [facility] [place] [facility] [address] [id number] [place] [address]- 3553 09 Apr, 2013 [facility] [place] [facility] [address] [id number] [place] [address]- 5515 07 Apr, 2013 [facility] [place] [facility] [address] [id number] [place] [address]- 9290 06 Apr, 2013 [facility] [place] [facility] [address] [id number] [place] [address]- 8535 06 Apr, 2013 [facility] [place] [facility] [address] [id number] [place] [address]- 7342 05 Apr, 2013 [facility] [place] [facility] [address] [id number], [place] [address]- 1458 Apr, [facility] [place] [facility] [address] [id number] [place] [address]- 6415 March, [facility] [place] [facility] [address] [id number] [place] [address]- 8274 March, [facility] [place] [facility] [address] [id number] [place] [address]- 0680 March, [facility] [place] [facility] [address] [id number] [place] [address]- 7369 14 Mar, 2013 [facility] [address] [id number] [place] [address]- 5498 13 Mar, 2013 [facility] [address] [id number] [place] [address]- 2183 March, [facility] [address] [id number] [place] [address]- 9905 March, [facility] [address] [id number] [place] [address]- 4024 Feb, [facility] [address] [id number] [place] [address]- 2637 Feb, [facility] [address] [id number] [place] [address]- 7994 27 Jan, 2013 [facility] [address] [id number] [place] [address]- 3101 18 Jan, 2013 [facility] [address] [id number] [place] [address]- 9558 15 Jan, 2013 [facility] [address] [id number] [place] [address]- 3879 14 Jan, 2013 [facility] [address] [id number] [place] [address]- 5522 13 Jan, 2013 [facility] [address] [id number] [place] [address]- 4007 12 Jan, 2013 [facility] [address] [id number] [place] [address]- 2277 11 Jan, 2013 [facility] [address] [id number] [place] [address]- 1228 09 Jan, 2013 [facility] [address] [id number] [place] [address]- 6594 08 Jan, 2013 [facility] [address] [id number] [place] [address]- 5516 Jan, [facility] [place] [facility] [address] [id number] [place] [address]- 9231 Jan, [facility] [place] [facility] [address] [id number] [place] [address]- 6238 Nov, [facility] [place] [facility] [address] [id number] [place] [address]- 9982 Oct, [facility] [place] [facility] [address] [id number] [place] [address]- 3106 Oct, [facility] [place] [facility] [address] [id number] [place] [address]- 5993 Oct, [facility] [place] [facility] [address] [id number] [place] [address]- 2183 Oct, [facility] [place] [facility] [address] [id number] [place] [address]- 3638 Sep, [facility] [place] [facility] [address] [id number] [place] [address]- 1978 Sep, [facility] [place] [facility] [address] [id number] [place] [address]- 7118 Sep, [facility] [place] [facility] [address] [id number] [place] [address]- 7238 Sep, [facility] [place] [facility] [address] [id number] [place] [address]- 9076 Sep, [facility] [place] [facility] [address] [id number], [place] [address]- 1503 Sep, [facility] [place] [facility] [address] [id number] [place] [address]- 3100 Sep, [facility] [place] [facility] [address] [id number] [place] [address]- 8165 Sep, [facility] [place] [facility] [address] [id number], [place] [address]- 5522 Sep, [facility] [place] [facility] [address] [id number], [place] [address]- 5783 Sep, [facility] [place] [facility] [address] [id number] [place] [address]- 0223 Sep, [facility] [place] [facility] [address] [id number] [place] [address]- 2173 Aug, [facility] [place] [facility] [address] [id number] [place] [address]- 0004 Aug, [facility] [place] [facility] [address] [id number] [place] [address]- 2176 Aug, [facility] [place] [facility] [address] [id number] [place] [address]- 9876 28 Jul, 2012 [facility] [place] [facility] [address] [id number] [place] [address]- 1599 25 Jul, 2012 [facility] [place] [facility] [address] [id number] [place] [address]- 9100 19 Jul, 2012 [facility] [place] [facility] [address] [id number] [place] [address]- 3892 17 Jul, 2012 [facility] [place] [facility] [address] [facility] [id number] [place] [address]- 7255 20 Jun, 2012 [facility] [place] [facility] [address] [facility] [id number] [place] [address]- 9929 16 Jun, 2012 [facility] [place] [facility] [address] [facility] [id number] [place] [address]- 5009 15 Jun, 2012 [facility] [place] [facility] [address] [id number] [place] [address]- 2789 15 Jun, 2012 [facility] [place] [facility] [address] [id number] [place] [address]- 5778 13 Jun, 2012 [facility] [place] [facility] [address] [facility] [id number] [place] [address]- 9054 March, [facility] [place] [facility] [address] [facility] [id number] [place] [address]- 6341 Feb, [facility] [place] [facility] [address] [id number] [place] [address]- 2373 28 Jan, 2012 [facility] [place] [facility] [address] [id number] [place] [address]- 7991 27 Jan, 2012 [facility] [place] [facility] [address] [id number] [place] [address]- 9806 22 Jan, 2012 [facility] [place] [facility] [address] [id number] [place] [address]- 3146 14 Jan, 2012 [facility] [place] [facility] [address] [id number] [place] [address]- 2618 14 Jan, 2012 [facility] [place] [facility] [address] [id number] [place] [address]- 6446 14 Jan, 2012 [facility] [place] [facility] [address] [facility] [id number] [place] [address]- 5943 28 Dec, 2011 [facility] [place] [facility] [address] [id number] [place] [address]- 7263 27 Dec, 2011 [facility] [place] [facility] [address] [id number] [place] [address]- 4177 23 Dec, 2011 [facility] [place] [facility] [address] [facility] [id number] [place] [address]- 1480 21 Dec, 2011 [facility] [place] [facility] [address] [facility] [id number] [place] [address] 20 Dec, 2011 [facility] [place] [facility] [address] [id number] [place] [address] 19 Dec, 2011 [facility] [place] [facility] [address] [id number] [place] [address] 17 Dec, 2011 [facility] [place] [facility] [address] [id number] [place] [address] 16 Dec, 2011 [facility] [place] [facility] [address] [facility] [id number] [place] [address] 31 Nov, 2011 [facility] [place] [facility] [address] [id number], [place] [address] Oct, [facility] [place] [id number] [address] Sep, [facility] [place] [id number] [address] Sep, [facility], [place] [id number], [place] [address] Sep, [facility], [place] [id number] [place] [address] [id number][address] Sep, [facility], [place] [id number] [address] Sep, [facility], [place] [id number] [place] [address] Sep, [facility], [place] [address] [id number], [place] [address] Jan, [facility], [place] [address] [id number], [place] [address] Apr, IMMUNIZATIONS No Known Immunizations SOCIAL HISTORY Never Assessed REASON FOR VISIT [facility] [place] PLAN OF CARE VITAL SIGNS MEDICATIONS Unknown [...] History Left ovary removed 12/2017 Hospitalization History [facility] Admission x4 2009 most recent admission Hospitalization History [facility]; overdose 2010 Hospitalization History child 11/29/2016
--- OUTSIDE RECORDS SUMMARY | 2019-03-04 16:36 | XMS REPORT ---
Author Author Migration, Doctor Organization [facility] Address Unknown Phone Unavailable Care Team Providers Care Sports Team Manager Name Role Phone Migration, Doctor Unavailable Unavailable PROBLEMS Type Condition ICD9-CM Code [id number] Code Onset Dates Condition Status SNOMED Code Problem Generalized anxiety disorder F41.1 Active 85164642 Problem Bipolar disorder, current episode mixed, moderate F31.62 Active 425893817 Problem Acute non intractable tension-type headache G44.209 Active 371661103 Problem Constipation K59.00 Active 33344254 Problem Post traumatic stress disorder F43.10 Active 74234596 Problem Borderline personality disorder F60.3 Active 00645279 Problem Endometriosis N80.9 Active 123793727 Problem Acute right-sided low back pain with right-sided sciatica M54.41 Active [id number] ALLERGIES No Information ENCOUNTERS Encounter Location Date Diagnosis [facility] [id number] [place] [address] 71270- 5331 Feb, [facility] [address] 83882- 8089 Feb, [facility] [id number] [place] [address] 69143- 0546 Jan, Bipolar disorder, current episode mixed, moderate F31.62 ; Post traumatic stress disorder F43.10 ; Borderline personality disorder F60.3 and Other watermaster (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 Z79.899 [facility] [id number] [place] [address] 15690 -3295 Jan, Cough R05 and Viral upper respiratory tract infection J06.9 [facility] [id number] [place] [address] 01013- 3937 Jan, Bipolar disorder, current episode mixed, moderate F31.62 [facility] [id number] [place] [address] 58815- 2440 Dec, Bipolar disorder, current episode mixed, moderate F31.62 [facility] [address] [place] [address] 07052- 5443 Nov, Bipolar disorder, current episode mixed, moderate F31.62 [facility] [address] [place] [address] 42026 -5054 Oct, Sore throat J02.9 [facility] [id number] [place] [address] 12283 -3821 Oct, Abdominal pain R10.9 ; Low back pain M54.5 ; Left shoulder pain M25.512 and Constipation K59.00 [facility] [id number] [place] [address] 94366- 7166 Oct, Bipolar disorder, current episode mixed, moderate F31.62 ; Post traumatic stress disorder F43.10 and Borderline personality disorder F60.3 [facility] [id number] [place] [address] 24070- 9734 Sep, Bipolar disorder, current episode mixed, moderate F31.62 [facility] [id number] [place] [address] 23715- 2511 Aug, Bipolar disorder, current episode mixed, moderate F31.62 [facility] [id number] [place] [address] 37126- 7124 Jul, Thrombophlebitis I80.9 and Pelvic pain R10.2 [facility] [id number] [place] [address] 73387- 4887 05 Jul, 2018 Bipolar disorder, current episode mixed, moderate F31.62 ; Post traumatic stress disorder F43.10 and Borderline personality disorder F60.3 [facility] [id number] [place] [address] 54348- 2714 Jun, Bipolar disorder, current episode mixed, moderate F31.62 [facility] [id number] [place] [address] 11947- 2780 May, Palpitations R00.2 [facility] [address] [place] [address] 22750- 9258 13 May, 2018 Palpitations R00.2 [facility] [address] 60768- 8522 12 May, 2018 Palpitations R00.2 and Frequent bowel movements R19.4 [facility] [id number] [place] [address] 29789- 7130 05 May, 2018 Bipolar disorder, current episode mixed, moderate F31.62 ; Post traumatic stress disorder F43.10 and Borderline personality disorder F60.3 [facility] [id number] [place] [address] [id number] 15 Apr, 2018 Dental examination Z01.20 [facility] [id number] [place] [address] 18823 -3087 15 Apr, 2018 [facility] [address] 29750- 2602 15 Apr, 2018 Dental examination Z01.20 [facility] [id number] [place] [address] 54193 -6599 15 Apr, 2018 Tooth pain K08.89 [facility] [id number] [place] [address] 84097- 9064 06 Apr, 2018 Bipolar disorder, current episode mixed, moderate F31.62 ; Post traumatic stress disorder F43.10 and Borderline personality disorder F60.3 [facility] [id number] [place] [address] 08353 -9604 March, Abdominal pain R10.9 ; UTI symptoms R39.9 and Other microscopic hematuria R31.29 [facility] [id number] [place] [address] 10429- 5324 March, [facility] [id number] [place] [address] 38419- 4082 March, Bipolar disorder, current episode mixed, moderate F31.62 ; Post traumatic stress disorder F43.10 and Borderline personality disorder F60.3 [place] [id number] [place] [address] 49881- 0869 30 Feb, 2018 Encounter for immunization Z23 [facility] [address] 37269- 9222 16 Feb, 2018 Bipolar disorder, current episode mixed, moderate F31.62 ; Post traumatic stress disorder F43.10 and Borderline personality disorder F60.3 [facility] [address] 94049- 8824 11 Feb, 2018 Bipolar disorder, current episode mixed, moderate F31.62 ; Post traumatic stress disorder F43.10 ; Borderline personality disorder F60.3 and Other usp (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 Z79.899 [facility] [address] 34470- 9379 30 Jan, 2018 Encounter for immunization Z23 [facility] [facility] [address] 10442- 5284 Jan, [facility] [address] 39266- 6933 Jan, Bipolar disorder, current episode mixed, moderate F31.62 [facility] [address] 35671 -5621 Jan, Lumbar back pain M54.5 [place] [address] 62380- 4343 Dec, Low back pain M54.5 [facility] [address] 19820- 4037 13 Dec, 2017 Bipolar disorder, current episode mixed, moderate F31.62 [facility] [address] 67390- 6665 Dec, Generalized anxiety disorder F41.1 and Bipolar disorder, current episode mixed, moderate F31.62 [facility] [id number] [place] [address] 16746 -6939 Nov, Acute non intractable tension-type headache G44.209 [facility] [address] [place] [address] 96412- 3604 Nov, Bipolar disorder, current episode mixed, moderate F31.62 ; Post traumatic stress disorder F43.10 and Borderline personality disorder F60.3 [facility] [address] [place] [address] 03063- 7975 Nov, Bipolar disorder, current episode mixed, moderate F31.62 [facility] [place] [id number] [place] [address] 26801 -1854 Nov, Abdominal pain R10.9 ; History of PCOS Z87.42 ; History of endometriosis Z87.42 and Pelvic pain R10.2 [facility] [id number] [place] [address] 81161- 3575 Nov, [facility] [place] [id number] [place] [address] 13952 -3611 Oct, History of PCOS Z87.42 ; History of endometriosis Z87.42 and Pain R52 [facility] [id number] [place] [address] 82097- 4131 Oct, Bipolar disorder, current episode mixed, moderate F31.62 ; Post traumatic stress disorder F43.10 and Borderline personality disorder F60.3 [facility] [address] [place] [address] 15049- 7685 Oct, Bipolar disorder, current episode mixed, moderate F31.62 [facility] [id number] [place] [address] 00351- 5962 Sep, Bipolar disorder, current episode mixed, moderate F31.62 ; Post traumatic stress disorder F43.10 ; Borderline personality disorder F60.3 and Other usp (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 Z79.899 [facility] [facility] [address] [place] [address] 62804- 6592 Sep, Bipolar disorder, current episode mixed, moderate F31.62 [facility] [address] 58099 -7462 Sep, Endometriosis N80.9 and Acute right-sided low back pain with right-sided sciatica M54.41 [facility] [id number] [place] [address] 63422- 0786 Aug, [facility] [address] [place] [address] 47457- 6255 Aug, Bipolar disorder, current episode mixed, moderate F31.62 ; Post traumatic stress disorder F43.10 and Borderline personality disorder F60.3 [facility] [address] [place] [address] 40913- 8273 11 Aug, 2017 Bipolar disorder, current episode mixed, moderate F31.62 ; Post traumatic stress disorder F43.10 and Borderline personality disorder F60.3 [facility] [address] [place] [address] 24312- 4255 13 Jul, 2017 Bipolar disorder, current episode mixed, moderate F31.62 ; Post traumatic stress disorder F43.10 and Borderline personality disorder F60.3 [facility] [address] [place] [address] 54795 -3084 11 Jul, 2017 Pharyngitis, unspecified etiology J02.9 and Streptococcal pharyngitis J02.0 [facility] [address] [place] [address] 30547- 2037 16 Jun, 2017 Bipolar disorder, current episode mixed, moderate F31.62 ; Post traumatic stress disorder F43.10 and Borderline personality disorder F60.3 [facility] [address] [place] [address] 19663- 7272 May, [facility] [id number] [place] [address] 91128- 0739 May, [facility] [id number] [place] [address] 05990- 5624 17 May, 2017 Bipolar disorder, current episode mixed, moderate F31.62 and Generalized anxiety disorder F41.1 [facility] [id number] [place] [address] 86195- 8532 March, Bipolar disorder, current episode mixed, moderate F31.62 and Generalized anxiety disorder F41.1 [facility] [id number] [place] [address]- 9898 March, Pelvic pain R10.2 [facility] [id number] [place] [address] 88433- 5315 March, [facility] [id number] [place] [address] 90128- 1858 Feb, Bipolar disorder, current episode mixed, moderate F31.62 and Generalized anxiety disorder F41.1 [place] [address] 31808- 5289 Jan, [facility] [id number] [place] [address] 55328- 0397 Jan, Bipolar disorder, current episode mixed, moderate F31.62 [facility] [id number] [place] [address] 65438- 7873 Jan, Bipolar disorder, current episode mixed, moderate F31.62 [facility] [id number] [place] [address] 40178- 9500 Jan, Bilateral low back pain without sciatica M54.5 [facility] [id number] [place] [address] [id number] Jan, Dental caries K02.9 and Dental examination Z01.20 [facility] [id number] [place] [address] [id number] 09 Jan, 2017 Encounter for dental examination and cleaning without abnormal findings Z01.20 [facility] [id number] [place] [address] 86955- 0900 Jan, Bipolar disorder, current episode mixed, moderate F31.62 and Generalized anxiety disorder F41.1 [facility] [id number] [place] [address] 91977- 5339 Dec, [facility] [id number] [place] [address] 89565- 2378 06 Dec, 2016 Bipolar disorder, current episode mixed, moderate F31.62 and Generalized anxiety disorder F41.1 [facility] [id number] [place] [address] 49754- 0035 03 Dec, 2016 Other fatigue R53.83 and Orthostatic hypotension I95.1 [facility] [id number] [place] [address] [id number] Nov, Dental examination Z01.20 [facility] [id number] [place] [address] 65356 -7329 Nov, Bronchitis J40 [place] [address] 06112- 4002 Oct, Generalized anxiety disorder F41.1 [facility] [address] 94372- 0852 14 Sep, 2016 Bipolar disorder, current episode mixed, moderate F31.62 and Generalized anxiety disorder F41.1 [facility] [address] [place] [address] 88738- 8873 Sep, Bipolar disorder, current episode mixed, moderate F31.62 and Generalized anxiety disorder F41.1 [facility] [address] [place] [address] 92622 -5974 08 Jul, 2016 Upper respiratory tract infection, unspecified type J06.9 [facility] [address] [place] [address] 60519- 3279 Jun, Bipolar disorder, current episode mixed, moderate F31.62 and Generalized anxiety disorder F41.1 [facility] [address] 96055- 9787 Apr, [facility] [address] [place] [address] 73010- 3880 Apr, Encounter for test, result positive Z32.01 [place] [address] 67084- 5952 March, [facility] [id number] [address]- 0261 March, Bipolar disorder, current episode mixed, moderate F31.62 and Generalized anxiety disorder F41.1 [facility] [id number] [address]- 7762 March, Bipolar disorder, current episode mixed, moderate F31.62 and Generalized anxiety disorder F41.1 [facility] [id number] [place] [address] 43555- 3987 March, [facility] [id number] [place] [address] 79315- 4004 March, [facility] [id number] [place] [address] 94304- 4781 Feb, [facility] [id number] [place] [address] 09472- 2614 Feb, [facility] [id number] [place] [address] 18546- 3180 Feb, Bipolar disorder, current episode mixed, moderate F31.62 and Generalized anxiety disorder F41.1 [facility] [address] [place] [address] 88918- 7957 22 Jan, 2016 Abdominal pain R10.9 [facility] [address] [place] [address] 83154- 1621 14 Jan, 2016 [facility] [address] [place] [address] 99732- 3444 29 Dec, 2015 Dental examination Z01.20 [facility] [id number] [place] [address] 08988- 9397 22 Dec, 2015 Dental examination Z01.20 and Dental caries K02.9 [facility] [address] [address]- 1712 15 Dec, 2015 Bipolar disorder, current episode mixed, moderate F31.62 and Generalized anxiety disorder F41.1 [place] [address] [place] [address] 21799- 4862 15 Dec, 2015 [place] [id number] [place] [address] 52366- 5628 Nov, Bipolar disorder, current episode mixed, moderate F31.62 ; Generalized anxiety disorder F41.1 and Seizure-like activity R56.9 [facility] [address] [place] [address] 64049- 9926 Oct, [place] [address] [place] [address] 24381- 7089 Oct, Bipolar disorder, current episode mixed, moderate F31.62 [place] [facility] [address] [place] [address] 62906- 0963 14 Oct, 2015 Well woman exam Z01.419 [...] Z72.0 and Hot flashes N95.1 [place] [address] [place] [address] 66678- 2139 09 Oct, 2015 Seizure-like activity R56.9 and Irregular periods N92.6 [place] [address] [place] [address] 52766- 0232 07 Oct, 2015 Bipolar disorder, current episode mixed, moderate F31.62 ; Generalized anxiety disorder F41.1 and Underweight R63.6 [place] [address] [place] [address] 82896- 8405 Oct, [place] [address] [place] [address] 83469- 5677 Oct, Generalized anxiety disorder F41.1 and Unspecified mood [ affective] disorder F39 [facility] [address] [place] [address] 85759 -4892 Oct, Back pain M54.9 and Anxiety F41.9 [facility] [id number] [place] [address] 12891- 1357 Oct, [facility] [address] [place] [address] 79961 -6240 Sep, Arm pain, left M79.602 [facility] [address] [place] [address] 00875- 7860 Sep, [facility] [id number] [place] [address] [id number] Sep, Dental examination Z01.20 and Dental caries K02.9 [facility] [id number] [place] [address] 92167- 2963 Sep, Generalized anxiety disorder F41.1 and Unspecified episodic mood disorder F39 [facility] [id number] [place] [address] 27354- 1544 Sep, Bilateral low back pain without sciatica M54.5 and Seizure- like activity R56.9 [facility] [id number] [place] [address] 17593- 7467 Aug, [facility] [id number] [place] [address] 57567- 5750 Aug, [facility] [id number] [place] [address] 70380- 2243 Aug, [facility] [id number] [place] [address] 79920- 7258 Aug, Visual changes H53.9 and Bilateral low back pain without sciatica M54.5 [facility] [address] [place] [address] 69501- 8582 Jul, [facility] [address] [address]- 6703 Jun, Bipolar I disorder, most recent episode (or current) mixed, moderate 296.62 ; Generalized anxiety disorder 300.02 and High risk medication use V58.69 [facility] [address] [address]- 4127 Jun, [facility] [id number] [place] [address] 52969- 3756 May, [facility] [id number] [place] [address] 87079- 7661 May, Bipolar I disorder, most recent episode (or current) mixed, moderate 296.62 and Generalized anxiety disorder 300.02 [facility] [address] [place] [address] [id number] May, Dental examination V72.2 [facility] [id number] [place] [address] 18175- 7981 March, Bipolar I disorder, most recent episode (or current) mixed, moderate 296.62 and Generalized anxiety disorder 300.02 [facility] [address] [place] [address] 10595- 2998 March, [facility] [id number] [place] [address] 35669- 7691 March, [facility] [address] [place] [address] 33982- 9612 March, Underweight 783.22 ; Hand pain, right 729.5 and Reflux gastritis 535.40 [facility] [address] [place] [address] 81310- 8298 Feb, [facility] [id number] [place] [address] 10952- 2908 Feb, [facility] [address] [place] [address] 06026- 3863 Jan, [facility] [id number] [place] [address] 93382- 8544 18 Jan, 2015 [facility] [place] [facility] [address] [id number] [place] [address]- 4930 Jan, [facility] [place] [facility] [address] [id number] [place] [address]- 8115 16 Jan, 2015 [facility] [place] [facility] [address] [facility] [id number] [place] [address]- 8103 Jan, [facility] [place] [facility] [address] [id number] [place] [address]- 1254 Jan, [facility] [place] [facility] [address] [id number] [place] [address]- 0234 Jan, [facility] [place] [facility] [address] [facility] [id number] [place] [address]- 6548 05 Jan, 2015 [facility] [place] [facility] [address] [facility] [id number] [place] [address]- 0037 Jan, [facility] [place] [facility] [address] [facility] [id number] [place] [address]- 2755 Jan, [facility] [place] [facility] [address] [facility] [id number] [place] [address]- 5273 Jan, [facility] [place] [facility] [address] [facility] [id number] [place] [address]- 2914 Jan, [facility] [place] [facility] [address] [facility] [id number], [place] [address]- 7691 Dec, 2014 [facility] [place] [facility] [address] [facility] [id number], [place] [address]- 1038 Dec, [facility] [place] [facility] [address] [id number] [place] [address]- 5936 Dec, 2014 [facility] [place] [facility] [address] [facility] [id number], [place] [address]- 1153 Dec, 2014 [facility] [place] [facility] [address] [facility] [id number], [place] [address]- 5185 18 Dec, 2014 [facility] [place] [facility] [address] [id number] [place] [address] 2543 Dec, 2014 [facility] [place] [facility] [address] [id number] [place] [address]- 8266 Dec, 2014 [facility] [place] [facility] [address] [id number] [place] [address]- 2546 16 Dec, 2014 [facility] [place] [facility] [address] [id number] [place] [address]- 2540 Dec, 2014 [facility] [place] [facility] [address] [id number] [place] [address] 2547 Dec, 2014 [facility] [place] [facility] [address] [id number] [place] [address] Dec, 2014 [facility] [place] [facility] [address] [id number] [place] [address] Dec, 2014 [facility] [place] [facility] [address] [facility] [id number] [place] [address] Dec, 2014 [facility] [place] [facility] [address] [id number] [place] [address] Dec, 2014 [facility] [place] [facility] [address] [facility] [id number] [place] [address] Dec, 2014 [facility] [place] [facility] [address] [facility] [id number] [place] [address] Dec, 2014 [facility] [place] [facility] [address] [id number] [place] [address] Dec, 2014 [facility] [place] [facility] [address] [id number] [place] [address] Dec, 2014 [facility] [place] [facility] [address] [id number] [place] [address] Dec, 2014 [facility] [place] [facility] [address] [facility] [id number] [place] [address] Nov, [facility] [place] [facility] [address] [id number] [place] [address] Nov, [facility] [address] [id number] [place] [address] Nov, [facility] [facility] [address] [id number] [place] [address] Nov, [facility] [address] [id number] [place] [address] Nov, [facility] [address] [id number] [place] [address] Nov, [facility] [address] [id number] [place] [id number] Nov, [facility] [address] [id number] [place] [address] Nov, [facility] [address] [id number] [place] [address] Nov, [facility] [address] [id number] [place] [id number] Nov, [facility] [place] [facility] [address] [id number] [place] [address] Nov, [facility] [address] [id number] [place] [address] 9[address] Nov, [facility] [address] [id number] [place] [address]- 4436 Oct, [facility] [place] [facility] [address] [id number] [place] [address]- [address] Oct, [facility] [place] [facility] [address] [id number] [place] [address]- 6076 Oct, [facility] [place] [facility] [address] [id number] [place] [address]- 2306 Oct, [facility] [place] [facility] [address] [id number] [place] [address]- 9686 Oct, [facility] [place] [facility] [address] [id number] [place] [address]- 65[address] Oct, [facility] [place] [facility] [address] [id number] [place] [address] Oct, [facility] [place] [facility] [address] [id number] [place] [address]- 7299 Oct, [facility] [place] [facility] [address] [id number] [place] [address]- 2080 Oct, [facility] [place] [facility] [address] [id number] [place] [address]- 4490 Oct, [facility] [place] [facility] [address] [id number] [place] [address]- 5584 Oct, [facility] [place] [facility] [address] [id number] [place] [address]- 6578 Oct, [facility] [place] [facility] [address] [id number] [place] [address]- 5787 Sep, [facility] [place] [facility] [address] [id number] [place] [address]- 0[address] Sep, [facility] [place] [facility] [address] [id number] [place] [address]- 0499 Sep, [facility] [place] [facility] [address] [id number] [place] [address]- 2392 Sep, [facility] [place] [facility] [address] [id number] [place] [address]- 8369 Sep, [facility] [place] [facility] [address] [id number] [place] [address]- 9845 Sep, [facility] [place] [facility] [address] [id number] [place] [address]- 0710 Sep, [facility] [place] [facility] [address] [id number] [place] [address] Sep, [facility] [place] [facility] [address] [id number] [place] [address]- 2671 Aug, [facility] [place] [facility] [address] [id number] [place] [address]- 2434 Aug, [facility] [place] [facility] [address] [id number] [place] [address]- 7385 Aug, [facility] [place] [facility] [address] [id number] [place] [address]- 9643 Aug, [facility] [place] [facility] [address] [id number] [place] [address]- 5599 Aug, [facility] [place] [facility] [address] [id number] [place] [address]- 4829 10 Aug, 2014 [facility] [place] [facility] [address] [id number] [place] [address]- 9294 08 Aug, 2014 [facility] [place] [facility] [address] [id number] [place] [address]- 1138 08 Aug, 2014 [facility] [place] [facility] [address] [id number] [place] [address]- 7615 Aug, [facility] [place] [facility] [address] [id number] [place] [address]- 5[address] Aug, [facility] [place] [facility] [address] [id number] [place] [address]- 8818 Aug, [facility] [place] [facility] [address] [id number], [place] [address]- [address] 07 Aug, 2014 [facility] [place] [facility] [address] [id number], [place] [address]- [address] Aug, [facility] [place] [facility] [address] [id number] [place] [address]- 6008 22 Jul, 2013 [facility] [place] [facility] [address] [id number] [place] [address]- 2871 22 Jul, 2013 [facility] [place] [facility] [address] [id number] [place] [address]- 2412 19 Jul, 2013 [facility] [place] [facility] [address] [id number] [place] [address]- 9056 Jul, [facility] [place] [facility] [address] [id number] [place] [address]- 3935 Jun, [facility] [place] [facility] [address] [id number] [place] [address]- 7722 Jun, [facility] [place] [facility] [address] [id number] [place] [address]- 3765 Jun, [facility] [place] [facility] [address] [id number] [place] [address]- 1392 Jun, [facility] [place] [facility] [address] [id number] [place] [address]- 9944 Jun, [facility] [place] [facility] [address] [id number] [place] [address]- 1525 Jun, [facility] [place] [facility] [address] [id number] [place] [address]- 6449 May, [facility] [place] [facility] [address] [id number] [place] [address]- 3252 May, [facility] [place] [facility] [address] [id number] [place] [address]- 0859 May, [facility] [place] [facility] [address] [id number] [place] [address]- 8620 May, [facility] [place] [facility] [address] [id number] [place] [address]- 5624 Apr, [facility] [place] [facility] [address] [id number] [place] [address]- 4649 Apr, [facility] [place] [facility] [address] [id number] [place] [address]- 4135 March, [facility] [place] [facility] [address] [id number] [place] [address]- 3216 March, [facility] [place] [facility] [address] [id number] [place] [address]- 8406 March, [facility] [place] [facility] [address] [id number] [place] [address]- 7093 March, [facility] [place] [facility] [address] [id number] [place] [address]- 9318 March, [facility] [place] [facility] [address] [id number] [place] [address]- 7121 March, [facility] [place] [facility] [address] [id number] [place] [address]- 9644 Feb, [facility] [place] [facility] [address] [id number] [place] [address]- 5081 Feb, [facility] [place] [facility] [address] [id number] [place] [address]- 6896 Dec, [facility] [place] [facility] [address] [id number] [place] [address]- 8961 Dec, [facility] [place] [facility] [address] [id number] [place] [address]- 8504 Nov, [facility] [place] [facility] [address] [id number] [place] [address]- 0733 Nov, [facility] [place] [facility] [address] [id number] [place] [address]- 9232 Sep, [facility] [place] [facility] [address] [id number] [place] [address]- 0123 Sep, [facility] [place] [facility] [address] [id number], [place] [address]- 1376 Sep, [facility] [place] [facility] [address] [id number] [place] [address]- 0141 Sep, [facility] [place] [facility] [address] [id number] [place] [address]- 7173 Sep, [facility] [place] [facility] [address] [id number] [place] [address]- 5301 Sep, [facility] [place] [facility] [address] [id number] [place] [address]- 7078 Sep, [facility] [place] [facility] [address] [id number] [place] [address]- 1032 Aug, [facility] [place] [facility] [address] [id number] [place] Aug, [facility] [place] [facility] [address] [id number] [place] [address]- 5737 Aug, [facility] [place] [facility] [address] [id number] [place] [address]- 9611 Aug, [facility] [place] [facility] [address] [id number] [place] [address]- 4476 Aug, [facility] [place] [facility] [address] [id number] [place] [address]- 9173 Aug, [facility] [place] [facility] [address] [id number] [place] [address]- 5155 Jul, [facility] [place] [facility] [address] [id number] [place] [address]- 5828 Jul, [facility] [place] [facility] [address] [id number] [place] [address]- 5753 16 Jul, 2013 [facility] [place] [facility] [address] [id number] [place] [address]- 2680 Jul, [facility] [place] [facility] [address] [id number] [place] [address]- 8839 Jun, [facility] [place] [facility] [address] [id number] [place] [address]- 1100 Jun, [facility] [place] [facility] [address] [id number] [place] [address]- 0846 Jun, [facility] [place] [facility] [address] [id number] [place] [address]- 2618 Jun, [facility] [place] [facility] [address] [id number] [place] [address]- 2352 Jun, [facility] [place] [facility] [address] [id number] [place] [address]- 1628 Jun, [facility] [place] [facility] [address] [id number] [place] [address]- 2841 Jun, [facility] [place] [facility] [address] [id number] [place] [address]- 5718 May, [facility] [place] [facility] [address] [id number] [place] [address]- 9700 May, [facility] [place] [facility] [address] [id number] [place] [address]- 2823 May, [facility] [place] [facility] [address] [id number] [place] [address]- 4061 May, [facility] [place] [facility] [address] [id number] [place] [address]- 8585 May, [facility] [place] [facility] [address] [id number] [place] [address]- 8823 May, [facility] [place] [facility] [address] [id number] [place] [address]- 0271 May, [facility] [place] [facility] [address] [id number] [place] [address]- 2112 Apr, [facility] [place] [facility] [address] [id number] [place] [address]- 4389 Apr, [facility] [place] [facility] [address] [id number] [place] [address]- 3993 Apr, [facility] [place] [facility] [address] [id number] [place] [address]- 4359 Apr, [facility] [place] [facility] [address] [id number] [place] [address]- 9828 Apr, [facility] [place] [facility] [address] [id number] [place] [address]- 9133 18 Apr, 2013 [facility] [place] [facility] [address] [id number] [place] [address]- 9798 18 Apr, 2013 [facility] [place] [facility] [address] [id number] [place] [address]- 2657 18 Apr, 2013 [facility] [place] [facility] [address] [id number] [place] [address]- 5633 17 Apr, 2013 [facility] [place] [facility] [address] [id number] [place] [address]- 6412 14 Apr, 2013 [facility] [place] [facility] [address] [id number] [place] [address]- 6238 14 Apr, 2013 [facility] [place] [facility] [address] [id number] [place] [address]- 7057 11 Apr, 2013 [facility] [place] [facility] [address] [id number] [place] [address]- 6811 10 Apr, 2013 [facility] [place] [facility] [address] [id number] [place] [address]- 4579 09 Apr, 2013 [facility] [place] [facility] [address] [id number] [place] [address]- 0438 07 Apr, 2013 [facility] [place] [facility] [address] [id number] [place] [address]- 0718 06 Apr, 2013 [facility] [place] [facility] [address] [id number] [place] [address]- 8580 06 Apr, 2013 [facility] [place] [facility] [address] [id number] [place] [address]- 1252 05 Apr, 2013 [facility] [place] [facility] [address] [id number], [place] [address]- 1511 Apr, [facility] [place] [facility] [address] [id number] [place] [address]- 8550 March, [facility] [place] [facility] [address] [id number] [place] [address]- 7893 March, [facility] [place] [facility] [address] [id number] [place] [address]- 2293 March, [facility] [place] [facility] [address] [id number] [place] [address]- 7451 14 Mar, 2013 [facility] [address] [id number] [place] [address]- 4614 13 Mar, 2013 [facility] [address] [id number] [place] [address]- 1437 March, [facility] [address] [id number] [place] [address]- 1939 March, [facility] [address] [id number] [place] [address]- 6426 Feb, [facility] [address] [id number] [place] [address]- 3318 Feb, [facility] [address] [id number] [place] [address]- 6899 27 Jan, 2013 [facility] [address] [id number] [place] [address]- 4099 18 Jan, 2013 [facility] [address] [id number] [place] [address]- 7475 15 Jan, 2013 [facility] [address] [id number] [place] [address]- 4415 14 Jan, 2013 [facility] [address] [id number] [place] [address]- 9751 13 Jan, 2013 [facility] [address] [id number] [place] [address]- 1996 12 Jan, 2013 [facility] [address] [id number] [place] [address]- 3032 11 Jan, 2013 [facility] [address] [id number] [place] [address]- 2927 09 Jan, 2013 [facility] [address] [id number] [place] [address]- 6979 08 Jan, 2013 [facility] [address] [id number] [place] [address]- 9798 Jan, [facility] [place] [facility] [address] [id number] [place] [address]- 7580 Jan, [facility] [place] [facility] [address] [id number] [place] [address]- 9360 Nov, [facility] [place] [facility] [address] [id number] [place] [address]- 4073 Oct, [facility] [place] [facility] [address] [id number] [place] [address]- 6966 Oct, [facility] [place] [facility] [address] [id number] [place] [address]- 2230 Oct, [facility] [place] [facility] [address] [id number] [place] [address]- 0021 Oct, [facility] [place] [facility] [address] [id number] [place] [address]- 9682 Sep, [facility] [place] [facility] [address] [id number] [place] [address]- 7649 Sep, [facility] [place] [facility] [address] [id number] [place] [address]- 7463 Sep, [facility] [place] [facility] [address] [id number] [place] [address]- 0569 Sep, [facility] [place] [facility] [address] [id number] [place] [address]- 4058 Sep, [facility] [place] [facility] [address] [id number], [place] [address]- 7125 Sep, [facility] [place] [facility] [address] [id number] [place] [address]- 9792 Sep, [facility] [place] [facility] [address] [id number] [place] [address]- 1600 Sep, [facility] [place] [facility] [address] [id number], [place] [address]- 5765 Sep, [facility] [place] [facility] [address] [id number], [place] [address]- 8555 Sep, [facility] [place] [facility] [address] [id number] [place] [address]- 4033 Sep, [facility] [place] [facility] [address] [id number] [place] [address]- 9620 Aug, [facility] [place] [facility] [address] [id number] [place] [address]- 3006 Aug, [facility] [place] [facility] [address] [id number] [place] [address]- 2033 Aug, [facility] [place] [facility] [address] [id number] [place] [address]- 6968 28 Jul, 2012 [facility] [place] [facility] [address] [id number] [place] [address]- 9408 25 Jul, 2012 [facility] [place] [facility] [address] [id number] [place] [address]- 7312 19 Jul, 2012 [facility] [place] [facility] [address] [id number] [place] [address]- 3872 17 Jul, 2012 [facility] [place] [facility] [address] [facility] [id number] [place] [address]- 2306 20 Jun, 2012 [facility] [place] [facility] [address] [facility] [id number] [place] [address]- 9764 16 Jun, 2012 [facility] [place] [facility] [address] [facility] [id number] [place] [address]- 2778 15 Jun, 2012 [facility] [place] [facility] [address] [id number] [place] [address]- 5753 15 Jun, 2012 [facility] [place] [facility] [address] [id number] [place] [address]- 7155 13 Jun, 2012 [facility] [place] [facility] [address] [facility] [id number] [place] [address]- 7432 March, [facility] [place] [facility] [address] [facility] [id number] [place] [address]- 3001 Feb, [facility] [place] [facility] [address] [id number] [place] [address]- 5318 28 Jan, 2012 [facility] [place] [facility] [address] [id number] [place] [address]- 4291 27 Jan, 2012 [facility] [place] [facility] [address] [id number] [place] [address]- 6896 22 Jan, 2012 [facility] [place] [facility] [address] [id number] [place] [address]- 5364 14 Jan, 2012 [facility] [place] [facility] [address] [id number] [place] [address]- 3232 14 Jan, 2012 [facility] [place] [facility] [address] [id number] [place] [address]- 5046 14 Jan, 2012 [facility] [place] [facility] [address] [facility] [id number] [place] [address]- 3392 28 Dec, 2011 [facility] [place] [facility] [address] [id number] [place] [address]- 0780 27 Dec, 2011 [facility] [place] [facility] [address] [id number] [place] [address]- 6209 23 Dec, 2011 [facility] [place] [facility] [address] [facility] [id number] [place] [address]- 7008 21 Dec, 2011 [facility] [place] [facility] [address] [facility] [id number] [place] [address]- 3801 20 Dec, 2011 [facility] [place] [facility] [address] [id number] [place] [address]- 6467 19 Dec, 2011 [facility] [place] [facility] [address] [id number] [place] [address]- 9251 17 Dec, 2011 [facility] [place] [facility] [address] [id number] [place] [address]- 6237 16 Dec, 2011 [facility] [place] [facility] [address] [facility] [id number] [place] [address]- 9498 31 Nov, 2011 [facility] [place] [facility] [address] [id number], [place] [address]- 7321 Oct, [facility] [id number], [place] [address]- 6033 Sep, [facility] [id number], [place] [address]- 5848 Sep, [facility] [id number], [place] [address]- 3206 Sep, [facility] [id number] [place] [address] 162973- 1335 Sep, [facility] [id number]- 7836 Sep, [facility] [id number], [place] [address]- 2761 Sep, [facility] [address] [id number], [place] [address]- 9155 Jan, [facility] [address] [id number], [place] [address]- 7159 Apr, IMMUNIZATIONS No Known Immunizations SOCIAL HISTORY Never Assessed REASON FOR VISIT [facility] PLAN OF CARE VITAL SIGNS [...] History Left ovary removed 12/2017 Hospitalization History [facility] Admission x4 2009 most recent admission Hospitalization History [facility]; overdose 2010 Hospitalization History child 11/29/2016
--- OUTSIDE RECORDS SUMMARY | 2019-03-04 16:37 | XMS REPORT ---
Author Author Migration, Doctor Organization [facility] Address Unknown Phone Unavailable Care Team Providers Care Transfusion Aide Name Role Phone Migration, Doctor Unavailable Unavailable PROBLEMS Type Condition ICD9-CM Code IGP30-ZS Code Onset Dates Condition Status SNOMED Code Problem Generalized anxiety disorder F41.1 Active 95869098 Problem Bipolar disorder, current episode mixed, moderate F31.62 Active 924218085 Problem Acute non intractable tension-type headache G44.209 Active 505315991 Problem Constipation K59.00 Active 51512583 Problem Post traumatic stress disorder F43.10 Active 18619806 Problem Borderline personality disorder F60.3 Active 99823734 Problem Endometriosis N80.9 Active 281396832 Problem Acute right-sided low back pain with right-sided sciatica M54.41 Active [id number] ALLERGIES No Information ENCOUNTERS Encounter Location Date Diagnosis [facility] [id number] [place] [address] 85414- 6274 Feb, [facility] [address] 61916- 1122 Feb, [facility] [id number] [place] [address] 04894- 4489 Jan, Bipolar disorder, current episode mixed, moderate F31.62 ; Post traumatic stress disorder F43.10 ; Borderline personality disorder F60.3 and Other 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 (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 Z79.899 [facility] [id number] [place] [address] 70866 -6996 Jan, Cough R05 and Viral upper respiratory tract infection J06.9 [facility] [id number] [place] [address] 03368- 1502 Jan, Bipolar disorder, current episode mixed, moderate F31.62 [facility] [id number] [place] [address] 79996- 8868 Dec, Bipolar disorder, current episode mixed, moderate F31.62 [facility] [id number] [place] [address] 25897- 1285 Nov, Bipolar disorder, current episode mixed, moderate F31.62 [facility] [id number] [place] [address] 55095 -5637 Oct, Sore throat J02.9 [facility] [id number] [place] [address] 60131 -0122 Oct, Abdominal pain R10.9 ; Low back pain M54.5 ; Left shoulder pain M25.512 and Constipation K59.00 [facility] [id number] [place] [address] 12676- 2333 Oct, Bipolar disorder, current episode mixed, moderate F31.62 ; Post traumatic stress disorder F43.10 and Borderline personality disorder F60.3 [facility] [id number] [place] [address] 32746- 9640 Sep, Bipolar disorder, current episode mixed, moderate F31.62 [facility] [id number] [place] [address] 39605- 5652 Aug, Bipolar disorder, current episode mixed, moderate F31.62 [facility] [id number] [place] [address] 79912- 5133 Jul, Thrombophlebitis I80.9 and Pelvic pain R10.2 [facility] [id number] [place] [address] 50637- 6913 05 Jul, 2018 Bipolar disorder, current episode mixed, moderate F31.62 ; Post traumatic stress disorder F43.10 and Borderline personality disorder F60.3 [facility] [id number] [place] [address] 43637- 6033 Jun, Bipolar disorder, current episode mixed, moderate F31.62 [facility] [id number] [place] [address] 44414- 6267 May, Palpitations R00.2 [facility] [id number] [place] [address] 83756- 2818 13 May, 2018 Palpitations R00.2 [facility] [address] 91525- 3785 12 May, 2018 Palpitations R00.2 and Frequent bowel movements R19.4 [facility] [id number] [place] [address] 49689- 2373 05 May, 2018 Bipolar disorder, current episode mixed, moderate F31.62 ; Post traumatic stress disorder F43.10 and Borderline personality disorder F60.3 [facility] [id number] [place] [address] [phone] 15 Apr, 2018 Dental examination Z01.20 [facility] [id number] [place] [address] 22006 -1175 15 Apr, 2018 [facility] [address] 59665- 0574 15 Apr, 2018 Dental examination Z01.20 [facility] [id number] [place] [address] 41782 -1709 15 Apr, 2018 Tooth pain K08.89 [facility] [id number] [place] [address] 14952- 7957 06 Apr, 2018 Bipolar disorder, current episode mixed, moderate F31.62 ; Post traumatic stress disorder F43.10 and Borderline personality disorder F60.3 [facility] [id number] [place] [address] 53870 -5444 March, Abdominal pain R10.9 ; UTI symptoms R39.9 and Other microscopic hematuria R31.29 [facility] [id number] [place] [address] 93520- 0182 March, [facility] [id number] [place] [address] 39684- 5375 March, Bipolar disorder, current episode mixed, moderate F31.62 ; Post traumatic stress disorder F43.10 and Borderline personality disorder F60.3 [facility] [id number] [place] [address] 92322- 2453 30 Feb, 2018 Encounter for immunization Z23 [facility] [address] 57639- 0429 16 Feb, 2018 Bipolar disorder, current episode mixed, moderate F31.62 ; Post traumatic stress disorder F43.10 and Borderline personality disorder F60.3 [facility] [address] 87199- 5519 11 Feb, 2018 Bipolar disorder, current episode mixed, moderate F31.62 ; Post traumatic stress disorder F43.10 ; Borderline personality disorder F60.3 and Other penitentiary (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 Z79.899 [place] [facility] [address] 02459- 3243 30 Jan, 2018 Encounter for immunization Z23 [facility] [address] 04644- 8336 Jan, [facility] [address] 88426- 2328 Jan, Bipolar disorder, current episode mixed, moderate F31.62 [facility] [address] 25878 -3204 Jan, Lumbar back pain M54.5 [place] [address] 89129- 2906 Dec, Low back pain M54.5 [facility] [address] 36179- 9653 13 Dec, 2017 Bipolar disorder, current episode mixed, moderate F31.62 [facility] [address] 38529- 1506 Dec, Generalized anxiety disorder F41.1 and Bipolar disorder, current episode mixed, moderate F31.62 [facility] [id number] [place] [address] 69934 -9380 Nov, Acute non intractable tension-type headache G44.209 [facility] [address] [place] [address] 44100- 0992 Nov, Bipolar disorder, current episode mixed, moderate F31.62 ; Post traumatic stress disorder F43.10 and Borderline personality disorder F60.3 [facility] [id number] [place] [address] 90409- 6225 Nov, Bipolar disorder, current episode mixed, moderate F31.62 [facility] [place] [id number] [place] [address] 27978 -0340 Nov, Abdominal pain R10.9 ; History of PCOS Z87.42 ; History of endometriosis Z87.42 and Pelvic pain R10.2 [facility] [id number] [place] [address] 43248- 7205 Nov, [facility] [place] [id number] [place] [address] 29567 -7502 Oct, History of PCOS Z87.42 ; History of endometriosis Z87.42 and Pain R52 [facility] [id number] [place] [address] 21306- 1673 Oct, Bipolar disorder, current episode mixed, moderate F31.62 ; Post traumatic stress disorder F43.10 and Borderline personality disorder F60.3 [facility] [address] [place] [address] 54279- 2652 Oct, Bipolar disorder, current episode mixed, moderate F31.62 [facility] [id number] [place] [address] 68044- 6074 Sep, Bipolar disorder, current episode mixed, moderate F31.62 ; Post traumatic stress disorder F43.10 ; Borderline personality disorder F60.3 and Other penitentiary (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 Z79.899 [place] [facility] [id number] [place] [address] 28286- 4628 Sep, Bipolar disorder, current episode mixed, moderate F31.62 [facility] [address] 43487 -2650 Sep, Endometriosis N80.9 and Acute right-sided low back pain with right-sided sciatica M54.41 [facility] [id number] [place] [address] 65846- 0443 Aug, [facility] [address] [place] [address] 37794- 6836 Aug, Bipolar disorder, current episode mixed, moderate F31.62 ; Post traumatic stress disorder F43.10 and Borderline personality disorder F60.3 [facility] [address] [place] [address] 14319- 4261 11 Aug, 2017 Bipolar disorder, current episode mixed, moderate F31.62 ; Post traumatic stress disorder F43.10 and Borderline personality disorder F60.3 [facility] [address] [place] [address] 23660- 7186 13 Jul, 2017 Bipolar disorder, current episode mixed, moderate F31.62 ; Post traumatic stress disorder F43.10 and Borderline personality disorder F60.3 [facility] [address] [place] [address] 48663 -1719 11 Jul, 2017 Pharyngitis, unspecified etiology J02.9 and Streptococcal pharyngitis J02.0 [facility] [address] [place] [address] 20279- 9749 16 Jun, 2017 Bipolar disorder, current episode mixed, moderate F31.62 ; Post traumatic stress disorder F43.10 and Borderline personality disorder F60.3 [facility] [address] [place] [address] 67620- 7444 May, [facility] [id number] [place] [address] 53169- 0625 May, [facility] [id number] [place] [address] 18698- 4744 17 May, 2017 Bipolar disorder, current episode mixed, moderate F31.62 and Generalized anxiety disorder F41.1 [facility] [id number] [place] [address] 59277- 6208 March, Bipolar disorder, current episode mixed, moderate F31.62 and Generalized anxiety disorder F41.1 [facility] [id number] [place] [phone]- 4454 March, Pelvic pain R10.2 [facility] [id number] [place] [address] 85274- 2326 March, [facility] [id number] [place] [address] 68466- 7897 Feb, Bipolar disorder, current episode mixed, moderate F31.62 and Generalized anxiety disorder F41.1 [place] [facility] [address] 90851- 1440 Jan, [facility] [id number] [place] [address] 13992- 4863 Jan, Bipolar disorder, current episode mixed, moderate F31.62 [facility] [id number] [place] [address] 31241- 6874 Jan, Bipolar disorder, current episode mixed, moderate F31.62 [facility] [id number] [place] [address] 65955- 6865 Jan, Bilateral low back pain without sciatica M54.5 [facility] [id number] [place] [address] [phone] Jan, Dental caries K02.9 and Dental examination Z01.20 [facility] [id number] [place] [address] [id number] 09 Jan, 2017 Encounter for dental examination and cleaning without abnormal findings Z01.20 [facility] [id number] [place] [address] 02426- 8680 Jan, Bipolar disorder, current episode mixed, moderate F31.62 and Generalized anxiety disorder F41.1 [facility] [id number] [place] [address] 93272- 5346 Dec, [facility] [id number] [place] [address] 74622- 5470 06 Dec, 2016 Bipolar disorder, current episode mixed, moderate F31.62 and Generalized anxiety disorder F41.1 [facility] [id number] [place] [address] 29223- 8047 03 Dec, 2016 Other fatigue R53.83 and Orthostatic hypotension I95.1 [facility] [id number] [place] [address] [id number] Nov, Dental examination Z01.20 [facility] [id number] [place] [address] 72430 -6510 Nov, Bronchitis J40 [place] [facility] [address] 61087- 2736 Oct, Generalized anxiety disorder F41.1 [facility] [address] 49694- 8892 14 Sep, 2016 Bipolar disorder, current episode mixed, moderate F31.62 and Generalized anxiety disorder F41.1 [facility] [id number] [place] [address] 21827- 0755 Sep, Bipolar disorder, current episode mixed, moderate F31.62 and Generalized anxiety disorder F41.1 [facility] [address] [place] [address] 36638 -6245 08 Jul, 2016 Upper respiratory tract infection, unspecified type J06.9 [facility] [id number] [place] [address] 42660- 4576 Jun, Bipolar disorder, current episode mixed, moderate F31.62 and Generalized anxiety disorder F41.1 [facility] [address] 18263- 3239 Apr, [facility] [id number] [place] [address] 34919- 2824 Apr, Encounter for test, result positive Z32.01 [facility] [address] 01494- 3002 March, [facility] [id number] [address]- 6246 March, Bipolar disorder, current episode mixed, moderate F31.62 and Generalized anxiety disorder F41.1 [facility] [id number] [address]- 5614 March, Bipolar disorder, current episode mixed, moderate F31.62 and Generalized anxiety disorder F41.1 [facility] [id number] [place] [address] 18236- 7132 March, [facility] [id number] [place] [address] 94050- 4156 March, [facility] [id number] [place] [address] 39662- 6073 Feb, [facility] [id number] [place] [address] 12130- 2870 Feb, [facility] [id number] [place] [address] 69105- 5688 Feb, Bipolar disorder, current episode mixed, moderate F31.62 and Generalized anxiety disorder F41.1 [facility] [address] [place] [address] 00963- 5883 22 Jan, 2016 Abdominal pain R10.9 [facility] [address] [place] [address] 52434- 4598 14 Jan, 2016 [facility] [address] [place] [address] 98785- 6803 29 Dec, 2015 Dental examination Z01.20 [facility] [id number] [place] [address] 20949- 0908 22 Dec, 2015 Dental examination Z01.20 and Dental caries K02.9 [facility] [address] [address]- 8068 15 Dec, 2015 Bipolar disorder, current episode mixed, moderate F31.62 and Generalized anxiety disorder F41.1 [place] [address] [place] [address] 54924- 1327 15 Dec, 2015 [place] [facility] [id number] [place] [address] 01330- 8919 Nov, Bipolar disorder, current episode mixed, moderate F31.62 ; Generalized anxiety disorder F41.1 and Seizure-like activity R56.9 [facility] [id number] [place] [address] 23776- 5637 Oct, [place] [facility] [id number] [place] [address] 22090- 8350 Oct, Bipolar disorder, current episode mixed, moderate F31.62 [facility] [id number] [place] [address] 76600- 0755 14 Oct, 2015 Well woman exam Z01.419 [...] Tobacco use Z72.0 and Hot flashes N95.1 [place] [facility] [id number] [place] [address] 67801- 1691 09 Oct, 2015 Seizure-like activity R56.9 and Irregular periods N92.6 [facility] [id number] [place] [address] 21314- 6613 07 Oct, 2015 Bipolar disorder, current episode mixed, moderate F31.62 ; Generalized anxiety disorder F41.1 and Underweight R63.6 [place] [address] [place] [address] 05058- 0700 Oct, [facility] [id number] [place] [address] 61377- 0424 Oct, Generalized anxiety disorder F41.1 and Unspecified mood [ affective] disorder F39 [facility] [address] [place] [address] 01060 -5617 Oct, Back pain M54.9 and Anxiety F41.9 [facility] [id number] [place] [address] 22680- 2081 Oct, [facility] [id number] [place] [address] 79211 -9873 Sep, Arm pain, left M79.602 [facility] [id number] [place] [address] 31790- 2137 Sep, [facility] [id number] [place] [address] [id number] Sep, Dental examination Z01.20 and Dental caries K02.9 [facility] [id number] [place] [address] 13861- 9185 Sep, Generalized anxiety disorder F41.1 and Unspecified episodic mood disorder F39 [facility] [id number] [place] [address] 63192- 9097 Sep, Bilateral low back pain without sciatica M54.5 and Seizure- like activity R56.9 [facility] [id number] [place] [address] 61873- 7860 Aug, [facility] [id number] [place] [address] 57388- 7572 Aug, [facility] [id number] [place] [address] 04590- 8814 Aug, [facility] [id number] [place] [address] 24603- 2336 Aug, Visual changes H53.9 and Bilateral low back pain without sciatica M54.5 [facility] [id number] [place] [address] 51078- 5867 Jul, [facility] [address] [address]- 1484 Jun, Bipolar I disorder, most recent episode (or current) mixed, moderate 296.62 ; Generalized anxiety disorder 300.02 and High risk medication use V58.69 [facility] [address] [address]- 4736 Jun, [facility] [id number] [place] [address] 60815- 8437 May, [facility] [id number] [place] [address] 95901- 4400 May, Bipolar I disorder, most recent episode (or current) mixed, moderate 296.62 and Generalized anxiety disorder 300.02 [facility] [address] [place] [address] [id number] May, Dental examination V72.2 [facility] [id number] [place] [address] 20515- 3305 March, Bipolar I disorder, most recent episode (or current) mixed, moderate 296.62 and Generalized anxiety disorder 300.02 [facility] [id number] [place] [address] 68192- 1986 March, [facility] [id number] [place] [address] 07265- 0340 March, [facility] [address] [place] [address] 94636- 0598 March, Underweight 783.22 ; Hand pain, right 729.5 and Reflux gastritis 535.40 [facility] [address] [place] [address] 65545- 4498 Feb, [facility] [id number] [place] [address] 95182- 5583 Feb, [facility] [id number] [place] [address] 56100- 9526 Jan, [facility] [id number] [place] [address] 02874- 5166 18 Jan, 2015 [facility] [place] [facility] [address] [id number] [place] [address]- 8780 Jan, [facility] [place] [facility] [address] [id number] [place] [address]- 7933 16 Jan, 2015 [facility] [place] [facility] [address] [facility] [id number] [place] [address]- 1747 Jan, [facility] [place] [facility] [address] [id number] [place] [address]- 1472 Jan, [facility] [place] [facility] [address] [id number] [place] [address]- 4599 Jan, [facility] [place] [facility] [address] [facility] [id number] [place] [address]- 7478 05 Jan, 2015 [facility] [place] [facility] [address] [facility] [id number] [place] [address]- 5960 Jan, [facility] [place] [facility] [address] [facility] [id number] [place] [address]- 4098 Jan, [facility] [place] [facility] [address] [facility] [id number] [place] [address]- 8425 Jan, [facility] [place] [facility] [address] [facility] [id number] [place] [address]- 7041 Jan, [facility] [place] [facility] [address] [facility] [id number] [address]- 4447 Dec, 2014 [facility] [place] [facility] [address] [facility] [id number] [address]- 6856 Dec, [facility] [place] [facility] [address] [id number] [place] [address]- 1393 Dec, 2014 [facility] [place] [facility] [address] [facility] [id number], [place] [address] Dec, 2014 [facility] [place] [facility] [address] [facility] [id number], [place] [address] 18 Dec, 2014 [facility] [place] [facility] [address] [id number] [place] [address] Dec, 2014 [facility] [place] [facility] [address] [id number] [place] [address] Dec, 2014 [facility] [place] [facility] [address] [id number] [place] [address] 16 Dec, 2014 [facility] [place] [facility] [address] [id number] [place] [address] Dec, 2014 [facility] [place] [facility] [address] [id number] [place] [address] Dec, 2014 [facility] [place] [facility] [address] [id number] [place] [address] Dec, 2014 [facility] [place] [facility] [address] [id number] [address] Dec, 2014 [facility] [place] [facility] [address] [facility] [id number] [place] [address] Dec, 2014 [facility] [place] [facility] [address] [id number] [place] [address] Dec, 2014 [facility] [place] [facility] [address] [facility] [id number] [place] [address] Dec, 2014 [facility] [place] [facility] [address] [facility] [id number] [place] [address] Dec, 2014 [facility] [place] [facility] [address] [id number] [place] [address] Dec, 2014 [facility] [place] [facility] [address] [id number] [place] [address] Dec, 2014 [facility] [place] [facility] [address] [id number] [place] [address] Dec, 2014 [facility] [place] [facility] [address] [facility] [id number] [place] [address] Nov, [facility] [place] [facility] [address] [id number] [place] [address] Nov, [facility] [address] [id number] [place] [address] Nov, [facility] [address] [id number] [place] [address] 2546 Nov, [facility] [address] [id number] [place] [address] 8[address] Nov, [facility] [address] [id number] [place] [address]46 Nov, [facility] [address] [id number] [place] [id number] Nov, [facility] [address] [id number] [place] [address] Nov, [facility] [address] [id number] [place] [address]- 1076 Nov, [facility] [address] [id number] [place] [id number] Nov, [facility] [place] [facility] [address] [id number] [place] [address] 8946 Nov, [facility] [address] [id number] [place] [address]- 4376 Nov, [facility] [address] [id number] [place] [address] 6866 Oct, [facility] [place] [facility] [address] [id number] [place] [address]- 2168 Oct, [facility] [place] [facility] [address] [id number] [place] [address]- 4656 Oct, [facility] [place] [facility] [address] [id number] [place] [address]- 2736 Oct, [facility] [place] [facility] [address] [id number] [place] [address]- 6516 Oct, [facility] [place] [facility] [address] [id number] [place] [address] 8229 Oct, [facility] [place] [facility] [address] [id number] [place] [address] Oct, [facility] [place] [facility] [address] [id number] [place] [address]- 9186 Oct, [facility] [place] [facility] [address] [id number] [place] [address]- 8820 Oct, [facility] [place] [facility] [address] [id number] [place] [address]- 8096 Oct, [facility] [place] [facility] [address] [id number] [place] [address]- 9669 Oct, [facility] [place] [facility] [address] [id number] [place] [address]- 5388 Oct, [facility] [place] [facility] [address] [id number] [place] [address]- 1737 Sep, [facility] [place] [facility] [address] [id number] [place] [address]- 9725 Sep, [facility] [place] [facility] [address] [id number] [place] [address]- 5980 Sep, [facility] [place] [facility] [address] [id number] [place] [address]- 9446 Sep, [facility] [place] [facility] [address] [id number] [place] [address]- 5278 Sep, [facility] [place] [facility] [address] [id number] [place] [address]- 0783 Sep, [facility] [place] [facility] [address] [id number] [place] [address]- 6459 Sep, [facility] [place] [facility] [address] [id number] [place] [address] Sep, [facility] [place] [facility] [address] [id number] [place] [address] 1931 Aug, [facility] [place] [facility] [address] [id number] [place] [address]- 3232 Aug, [facility] [place] [facility] [address] [id number] [place] [address]- 4395 Aug, [facility] [place] [facility] [address] [id number] [place] [address]- 1551 Aug, [facility] [place] [facility] [address] [id number] [place] [address]- 8679 Aug, [facility] [place] [facility] [address] [id number] [place] [address]- 3788 10 Aug, 2014 [facility] [place] [facility] [address] [id number] [place] [address]- 8768 08 Aug, 2014 [facility] [place] [facility] [address] [id number] [place] [address]- 9516 08 Aug, 2014 [facility] [place] [facility] [address] [id number] [place] [address]- 5475 Aug, [facility] [place] [facility] [address] [id number] [place] [address]- 8436 Aug, [facility] [place] [facility] [address] [id number] [place] [address]- 1893 Aug, [facility] [place] [facility] [address] [id number], [place] [address]- 6[address] 07 Aug, 2014 [facility] [place] [facility] [address] [id number], [place] [address]- 9381 Aug, [facility] [place] [facility] [address] [id number] [place] [address]- 9349 22 Jul, 2013 [facility] [place] [facility] [address] [id number] [place] [address]- 9040 22 Jul, 2013 [facility] [place] [facility] [address] [id number] [place] [address]- 9088 19 Jul, 2013 [facility] [place] [facility] [address] [id number] [place] [address]- 9418 Jul, [facility] [place] [facility] [address] [id number] [place] [address]- 1165 Jun, [facility] [place] [facility] [address] [id number] [place] [address]- 8445 Jun, [facility] [place] [facility] [address] [id number] [place] [address]- 8397 Jun, [facility] [place] [facility] [address] [id number] [place] [address]- 5678 Jun, [facility] [place] [facility] [address] [id number] [place] [address]- 6223 Jun, [facility] [place] [facility] [address] [id number] [place] [address]- 5870 Jun, [facility] [place] [facility] [address] [id number] [place] [address]- 5946 May, [facility] [place] [facility] [address] [id number] [place] [address]- 3497 May, [facility] [place] [facility] [address] [id number] [place] [address]- 6014 May, [facility] [place] [facility] [address] [id number] [place] [address]- 8868 May, [facility] [place] [facility] [address] [id number] [place] [address]- 2007 Apr, [facility] [place] [facility] [address] [id number] [place] [address]- 8165 Apr, [facility] [place] [facility] [address] [id number] [place] [address]- 2953 March, [facility] [place] [facility] [address] [id number] [place] [address]- 2276 March, [facility] [place] [facility] [address] [id number] [place] [address]- 0501 March, [facility] [place] [facility] [address] [id number] [place] [address]- 7105 March, [facility] [place] [facility] [address] [id number] [place] [address]- 3565 March, [facility] [place] [facility] [address] [id number] [place] [address]- 6266 March, [facility] [place] [facility] [address] [id number] [place] [address]- 2905 Feb, [facility] [place] [facility] [address] [id number] [place] [address]- 3255 Feb, [facility] [place] [facility] [address] [id number] [place] [address]- 9125 Dec, [facility] [place] [facility] [address] [id number] [place] [address]- 8635 Dec, [facility] [place] [facility] [address] [id number] [place] [address]- 9133 Nov, [facility] [place] [facility] [address] [id number] [place] [address]- 9899 Nov, [facility] [place] [facility] [address] [id number] [place] [address]- 6024 Sep, [facility] [place] [facility] [address] [id number] [place] [address]- 1061 Sep, [facility] [place] [facility] [address] [id number], [place] [address]- 4859 Sep, [facility] [place] [facility] [address] [id number] [place] [address]- 7449 Sep, [facility] [place] [facility] [address] [id number] [place] [address]- 3982 Sep, [facility] [place] [facility] [address] [id number] [place] [address]- 9302 Sep, [facility] [place] [facility] [address] [id number] [place] [address]- 0357 Sep, [facility] [place] [facility] [address] [id number] [place] [address]- 3937 Aug, [facility] [place] [facility] [address] [id number] [place] Aug, [facility] [place] [facility] [address] [id number] [place] [address]- 4512 Aug, [facility] [place] [facility] [address] [id number] [place] [address]- 2163 Aug, [facility] [place] [facility] [address] [id number] [place] [address]- 6100 Aug, [facility] [place] [facility] [address] [id number] [place] [address]- 4508 Aug, [facility] [place] [facility] [address] [id number] [place] [address]- 2837 Jul, [facility] [place] [facility] [address] [id number] [place] [address]- 1917 Jul, [facility] [place] [facility] [address] [id number] [place] [address]- 9228 16 Jul, 2013 [facility] [place] [facility] [address] [id number] [place] [address]- 1542 Jul, [facility] [place] [facility] [address] [id number] [place] [address]- 5043 Jun, [facility] [place] [facility] [address] [id number] [place] [address]- 5791 Jun, [facility] [place] [facility] [address] [id number] [place] [address]- 6930 Jun, [facility] [place] [facility] [address] [id number] [place] [address]- 9464 Jun, [facility] [place] [facility] [address] [id number] [place] [address]- 8161 Jun, [facility] [place] [facility] [address] [id number] [place] [address]- 5865 Jun, [facility] [place] [facility] [address] [id number] [place] [address]- 0288 Jun, [facility] [place] [facility] [address] [id number] [place] [address]- 1076 May, [facility] [place] [facility] [address] [id number] [place] [address]- 7911 May, [facility] [place] [facility] [address] [id number] [place] [address]- 7105 May, [facility] [place] [facility] [address] [id number] [place] [address]- 0399 May, [facility] [place] [facility] [address] [id number] [place] [address]- 5818 May, [facility] [place] [facility] [address] [id number] [place] [address]- 5751 May, [facility] [place] [facility] [address] [id number] [place] [address]- 6766 May, [facility] [place] [facility] [address] [id number] [place] [address]- 8068 Apr, [facility] [place] [facility] [address] [id number] [place] [address]- 0847 Apr, [facility] [place] [facility] [address] [id number] [place] [address]- 7443 Apr, [facility] [place] [facility] [address] [id number] [place] [address]- 6212 Apr, [facility] [place] [facility] [address] [id number] [place] [address]- 4180 Apr, [facility] [place] [facility] [address] [id number] [place] [address]- 1463 18 Apr, 2013 [facility] [place] [facility] [address] [id number] [place] [address]- 5431 18 Apr, 2013 [facility] [place] [facility] [address] [id number] [place] [address]- 4164 18 Apr, 2013 [facility] [place] [facility] [address] [id number] [place] [address]- 8589 17 Apr, 2013 [facility] [place] [facility] [address] [id number] [place] [address]- 1625 14 Apr, 2013 [facility] [place] [facility] [address] [id number] [place] [address]- 3809 14 Apr, 2013 [facility] [place] [facility] [address] [id number] [place] [address]- 0522 11 Apr, 2013 [facility] [place] [facility] [address] [id number] [place] [address]- 5040 10 Apr, 2013 [facility] [place] [facility] [address] [id number] [place] [address]- 0661 09 Apr, 2013 [facility] [place] [facility] [address] [id number] [place] [address]- 4428 07 Apr, 2013 [facility] [place] [facility] [address] [id number] [place] [address]- 2037 06 Apr, 2013 [facility] [place] [facility] [address] [id number] [place] [address]- 6764 06 Apr, 2013 [facility] [place] [facility] [address] [id number] [place] [address]- 0694 05 Apr, 2013 [facility] [place] [facility] [address] [id number], [place] [address]- 7726 Apr, [facility] [place] [facility] [address] [id number] [place] [address]- 5432 March, [facility] [place] [facility] [address] [id number] [place] [address]- 2564 March, [facility] [place] [facility] [address] [id number] [place] [address]- 5355 March, [facility] [place] [facility] [address] [id number] [place] [address]- 4865 14 Mar, 2013 [facility] [address] [id number] [place] [address]- 1682 13 Mar, 2013 [facility] [address] [id number] [place] [address]- 2684 March, [facility] [address] [id number] [place] [address]- 8185 March, [facility] [address] [id number] [place] [address]- 0433 Feb, [facility] [address] [id number] [place] [address]- 7740 Feb, [facility] [address] [id number] [place] [address]- 6561 27 Jan, 2013 [facility] [address] [id number] [place] [address]- 0807 18 Jan, 2013 [facility] [address] [id number] [place] [address]- 0594 15 Jan, 2013 [facility] [address] [id number] [place] [address]- 1287 14 Jan, 2013 [facility] [address] [id number] [place] [address]- 3210 13 Jan, 2013 [facility] [address] [id number] [place] [address]- 2911 12 Jan, 2013 [facility] [address] [id number] [place] [address]- 9294 11 Jan, 2013 [facility] [address] [id number] [place] [address]- 1403 09 Jan, 2013 [facility] [address] [id number] [place] [address]- 9768 08 Jan, 2013 [facility] [address] [id number] [place] [address]- 3747 Jan, [facility] [place] [facility] [address] [id number] [place] [address]- 5243 Jan, [facility] [place] [facility] [address] [id number] [place] [address]- 4795 Nov, [facility] [place] [facility] [address] [id number] [place] [address]- 4567 Oct, [facility] [place] [facility] [address] [id number] [place] [address]- 9786 Oct, [facility] [place] [facility] [address] [id number] [place] [address]- 0378 Oct, [facility] [place] [facility] [address] [id number] [place] [address]- 8997 Oct, [facility] [place] [facility] [address] [id number] [place] [address]- 1517 Sep, [facility] [place] [facility] [address] [id number] [place] [address]- 7781 Sep, [facility] [place] [facility] [address] [id number] [place] [address]- 9779 Sep, [facility] [place] [facility] [address] [id number] [place] [address]- 3270 Sep, [facility] [place] [facility] [address] [id number] [place] [address]- 0116 Sep, [facility] [place] [facility] [address] [id number], [place] [address]- 1027 Sep, [facility] [place] [facility] [address] [id number] [place] [address]- 2937 Sep, [facility] [place] [facility] [address] [id number] [place] [address]- 5315 Sep, [facility] [place] [facility] [address] [id number], [place] [address]- 4731 Sep, [facility] [place] [facility] [address] [id number], [place] [address]- 7604 Sep, [facility] [place] [facility] [address] [id number] [place] [address]- 5736 Sep, [facility] [place] [facility] [address] [id number] [place] [address]- 7585 Aug, [facility] [place] [facility] [address] [id number] [place] [address]- 5092 Aug, [facility] [place] [facility] [address] [id number] [place] [address]- 3719 Aug, [facility] [place] [facility] [address] [id number] [place] [address]- 6881 28 Jul, 2012 [facility] [place] [facility] [address] [id number] [place] [address]- 5280 25 Jul, 2012 [facility] [place] [facility] [address] [id number] [address]- 5196 19 Jul, 2012 [facility] [place] [facility] [address] [id number] [place] [address]- 0490 17 Jul, 2012 [facility] [place] [facility] [address] [facility] [id number] [place] [address]- 3142 20 Jun, 2012 [facility] [place] [facility] [address] [facility] [id number] [place] [address]- 2766 16 Jun, 2012 [facility] [place] [facility] [address] [facility] [id number] [place] [address]- 5164 15 Jun, 2012 [facility] [place] [facility] [address] [id number] [place] [address]- 6845 15 Jun, 2012 [facility] [place] [facility] [address] [id number] [place] [address]- 4507 13 Jun, 2012 [facility] [place] [facility] [address] [facility] [id number] [place] [address]- 0594 March, [facility] [place] [facility] [address] [facility] [id number] [place] [address]- 5469 Feb, [facility] [place] [facility] [address] [id number] [place] [address]- 1541 28 Jan, 2012 [facility] [place] [facility] [address] [id number] [place] [address]- 8056 27 Jan, 2012 [facility] [place] [facility] [address] [id number] [place] [address]- 0226 22 Jan, 2012 [facility] [place] [facility] [address] [id number] [place] [address]- 2996 14 Jan, 2012 [facility] [place] [facility] [address] [id number] [place] [address]- 0973 14 Jan, 2012 [facility] [place] [facility] [address] [id number] [place] [address]- 6468 14 Jan, 2012 [facility] [place] [facility] [address] [facility] [id number] [place] [address]- 2743 28 Dec, 2011 [facility] [place] [facility] [address] [id number] [place] [address]- 2589 27 Dec, 2011 [facility] [place] [facility] [address] [id number] [place] [address]- 2053 23 Dec, 2011 [facility] [place] [facility] [address] [facility] [id number] [place] [address]- 5890 21 Dec, 2011 [facility] [place] [facility] [address] [facility] [id number] [place] [address]- 5881 20 Dec, 2011 [facility] [place] [facility] [address] [id number] [place] [address]- 2894 19 Dec, 2011 [facility] [place] [facility] [address] [id number] [place] [address]- 1189 17 Dec, 2011 [facility] [place] [facility] [address] [id number] [place] [address]- 8062 16 Dec, 2011 [facility] [place] [facility] [address] [facility] [id number] [place] [address] 31 Nov, 2011 [facility] [place] [facility] [address] [id number] [address] Oct, [facility] [id number] [address] Sep, [facility] [id number] [address] Sep, [facility] [id number] [address] Sep, [facility] [id number] [place] [id number] Sep, [facility] [id number] [address] Sep, [facility] [id number] [place] [address] Sep, [facility] [id number] [address] Jan, [facility] [id number] [address] Apr, IMMUNIZATIONS No Known Immunizations SOCIAL HISTORY Never Assessed REASON FOR VISIT [facility] [place] PLAN OF CARE VITAL SIGNS MEDICATIONS Unknown [...] History Left ovary removed 12/2017 Hospitalization History [place] Admission x4 2009 most recent admission Hospitalization History [facility]; overdose 2010 Hospitalization History child 11/29/2016
--- OUTSIDE RECORDS SUMMARY | 2019-03-04 16:38 | XMS REPORT ---
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 Name Role Phone Migration, Doctor Unavailable Unavailable PROBLEMS Type Condition ICD9-CM Code AOA35-QI Code Onset Dates Condition Status SNOMED Code Problem Generalized anxiety disorder F41.1 Active 16192502 Problem Bipolar disorder, current episode mixed, moderate F31.62 Active 328540129 Problem Acute non intractable tension-type headache G44.209 Active 520572597 Problem Constipation K59.00 Active 98138665 Problem Post traumatic stress disorder F43.10 Active 52241482 Problem Borderline personality disorder F60.3 Active 71779120 Problem Endometriosis N80.9 Active 324784107 Problem Acute right-sided low back pain with right-sided sciatica M54.41 Active 306700410 ALLERGIES No Information ENCOUNTERS Encounter Location Date Diagnosis [facility] [id number] [place] [address] 50280 -6721 Jan, Cough R05 and Viral upper respiratory tract infection J06.9 [facility] [facility] [id number] [place] [address] 72161- 4055 Jan, Bipolar disorder, current episode mixed, moderate F31.62 [facility] [facility] [id number] [place] [address] 69266- 9089 Dec, Bipolar disorder, current episode mixed, moderate F31.62 [facility] [id number] [place] [address] 72999- 0676 Nov, Bipolar disorder, current episode mixed, moderate F31.62 [facility] [id number] [place] [address] 26747 -4439 Oct, Sore throat J02.9 [facility] [id number] [place] [address] 23091 -3300 Oct, Abdominal pain R10.9 ; Low back pain M54.5 ; Left shoulder pain M25.512 and Constipation K59.00 [facility] [facility] [id number] [place] [address] 71929- 1310 Oct, Bipolar disorder, current episode mixed, moderate F31.62 ; Post traumatic stress disorder F43.10 and Borderline personality disorder F60.3 [facility] [id number] [place] [address] 60908- 1926 Sep, Bipolar disorder, current episode mixed, moderate F31.62 [facility] [facility] [id number] [place] [address] [address] Aug, Bipolar disorder, current episode mixed, moderate F31.62 [facility] [id number] [place] [address] Jul, Thrombophlebitis I80.9 and Pelvic pain R10.2 [place] [address] 60360- 3597 05 Jul, 2018 Bipolar disorder, current episode mixed, moderate F31.62 ; Post traumatic stress disorder F43.10 and Borderline personality disorder F60.3 [place] [id number] [place] [address] 76300- 3838 Jun, Bipolar disorder, current episode mixed, moderate F31.62 [facility] [id number] [place] [address] 72482- 2803 May, Palpitations R00.2 [facility] [facility] [id number] [place] [address] 47343- 4411 May, Palpitations R00.2 [facility] [facility] [id number] [place] [address] 38291- 3542 May, Palpitations R00.2 and Frequent bowel movements R19.4 [facility] [facility] [id number] [place] [address] 51707- 1114 May, Bipolar disorder, current episode mixed, moderate F31.62 ; Post traumatic stress disorder F43.10 and Borderline personality disorder F60.3 [facility] [id number] [id number] 15 Apr, 2018 Dental examination Z01.20 [facility] [address] [address] 15 Apr, 2018 [facility] [address] [place] [address] 23064- 1024 15 Apr, 2018 Dental examination Z01.20 [facility] [id number] [place] [address] 53996 -5887 15 Apr, [address] [facility] [id number] [place] [address] 08749- 6311 06 Apr, 2018 Bipolar disorder, current episode mixed, moderate F31.62 ; Post traumatic stress disorder F43.10 and Borderline personality disorder F60.3 [facility] [id number] [place] [address] 76281 -3935 18 Mar, 2018 Abdominal pain R10.9 ; UTI symptoms R39.9 and Other microscopic hematuria R31.29 [facility] [id number] [place] [address] 57295- 3544 March, [facility] [id number] [place] [address] 20536- 1487 March, Bipolar disorder, current episode mixed, moderate F31.62 ; Post traumatic stress disorder F43.10 and Borderline personality disorder F60.3 [facility] [id number] [place] [address] 27448- 6654 30 Feb, 2018 Encounter for immunization Z23 [facility] [id number] [place] [address] 69187- 8979 16 Feb, 2018 Bipolar disorder, current episode mixed, moderate F31.62 ; Post traumatic stress disorder F43.10 and Borderline personality disorder F60.3 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 [id number] [place] [address] 71603- 9596 Jan, [facility] [address] 23559- 0330 Jan, Bipolar disorder, current episode mixed, moderate F31.62 [facility] [address] 32505 -0488 Jan, Lumbar back pain M54.5 [place] [address] 97064- 5658 Dec, Low back pain M54.5 [place] [address] 01737- 5155 Dec, Bipolar disorder, current episode mixed, moderate F31.62 [place] [address] 23234- 9938 Dec, Generalized anxiety disorder F41.1 and Bipolar disorder, current episode mixed, moderate F31.62 [facility] [id number] [place] [address] 78989 -8489 Nov, Acute non intractable tension-type headache G44.209 [facility] [id number] [place] [address] 25497- 6746 Nov, Bipolar disorder, current episode mixed, moderate F31.62 ; Post traumatic stress disorder F43.10 and Borderline personality disorder F60.3 [facility] [facility] [id number] [place] [address] 38406- 8117 Nov, Bipolar disorder, current episode mixed, moderate F31.62 [facility] [address] 11637 -6801 Nov, Abdominal pain R10.9 ; History of PCOS Z87.42 ; History of endometriosis Z87.42 and Pelvic pain R10.2 [place] [facility] [id number] [place] [address] 72092- 2998 Nov, [facility] [id number] [place] [address] 07950 -2259 Oct, History of PCOS Z87.42 ; History of endometriosis Z87.42 and Pain R52 [facility] [id number] [place] [address] 24598- 0252 Oct, Bipolar disorder, current episode mixed, moderate F31.62 ; Post traumatic stress disorder F43.10 and Borderline personality disorder F60.3 [place] [facility] [id number] [place] [address] 88842- 6985 Oct, Bipolar disorder, current episode mixed, moderate F31.62 [facility] [facility] [id number] [place] [address] 73308- 3938 Sep, Bipolar disorder, current episode mixed, moderate F31.62 ; Post traumatic stress disorder F43.10 ; Borderline personality disorder F60.3 and Other custodial (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 Z79.899 [address] [id number] [place] [address] 89511- 6761 Sep, Bipolar disorder, current episode mixed, moderate F31.62 [facility] [id number] [place] [address] 74746 -6311 Sep, Endometriosis N80.9 and Acute right-sided low back pain with right-sided sciatica M54.41 [facility] [id number] [place] [address] 96081- 8603 Aug, [facility] [facility] [id number] [place] [address] 40416- 4117 Aug, Bipolar disorder, current episode mixed, moderate F31.62 ; Post traumatic stress disorder F43.10 and Borderline personality disorder F60.3 [facility] [id number] [address]- 5965 11 Aug, 2017 Bipolar disorder, current episode mixed, moderate F31.62 ; Post traumatic stress disorder F43.10 and Borderline personality disorder F60.3 [facility] [id number] [place] [address] 42622- 6231 13 Jul, 2017 Bipolar disorder, current episode mixed, moderate F31.62 ; Post traumatic stress disorder F43.10 and Borderline personality disorder F60.3 [facility] [id number] [place] [address] 42510 -7705 11 Jul, 2017 Pharyngitis, unspecified etiology J02.9 and Streptococcal pharyngitis J02.0 [facility] [id number] [place] [address] 01219- 3534 16 Jun, 2017 Bipolar disorder, current episode mixed, moderate F31.62 ; Post traumatic stress disorder F43.10 and Borderline personality disorder F60.3 [facility] [id number] [place] [address] 35448- 1222 May, [facility] [id number] [place] [address] 88897- 4683 May, [facility] [id number] [place] [address] 83788- 6575 May, Bipolar disorder, current episode mixed, moderate F31.62 and Generalized anxiety disorder F41.1 [facility] [id number] [place] [address] 21187- 5697 March, Bipolar disorder, current episode mixed, moderate F31.62 and Generalized anxiety disorder F41.1 [facility] [id number] [place] [address] 51550- 8477 March, Pelvic pain R10.2 [facility] [id number] [place] [address] 75963- 2861 March, [facility] [id number] [place] [address] 78829- 3810 Feb, Bipolar disorder, current episode mixed, moderate F31.62 and Generalized anxiety disorder F41.1 [facility] [id number] [place]- [address] Jan, [facility] [id number] [place]- 2265 Jan, Bipolar disorder, current episode mixed, moderate F31.62 [facility] [address] 848200- 9824 Jan, Bipolar disorder, current episode mixed, moderate F31.62 [facility] [id number] [place] [address]- 8953 Jan, Bilateral low back pain without sciatica M54.5 [facility] [id number] [place] [address] [id number] Jan, Dental caries K02.9 and Dental examination Z01.20 [facility] [address] [id number] Jan, Encounter for dental examination and cleaning without abnormal findings Z01.20 [facility] [id number] [place] [address]- 6410 Jan, Bipolar disorder, current episode mixed, moderate F31.62 and Generalized anxiety disorder F41.1 [facility] [id number] [place] [address] 23792- 3517 Dec, [facility] [id number] [place] [address]- 1814 Dec, Bipolar disorder, current episode mixed, moderate F31.62 and Generalized anxiety disorder F41.1 [facility] [id number] [place]- 6889 Dec, Other fatigue R53.83 and Orthostatic hypotension I95.1 [facility] [id number] [place] [address] [id number] Nov, Dental examination Z01.20 [facility] [id number] [address]164 02 Nov, [address] [facility] [id number] [place] [address] 32990- 9736 14 Oct, 2016 Generalized anxiety disorder F41.1 [facility] [id number] [place] [address] 88410- 9769 14 Sep, 2016 Bipolar disorder, current episode mixed, moderate F31.62 and Generalized anxiety disorder F41.1 [facility] [id number] [place] [address] 64777- 8816 02 Sep, 2016 Bipolar disorder, current episode mixed, moderate F31.62 and Generalized anxiety disorder F41.1 [facility] [id number] [place] [address] 82764 -3775 08 Jul, 2016 Upper respiratory tract infection, unspecified type J06.9 [place] [id number] [place] [address] 58668- 2001 Jun, Bipolar disorder, current episode mixed, moderate F31.62 and Generalized anxiety disorder F41.1 [place] [id number] [place] [address] 20994- 0056 Apr, [place] [id number] [place] [address] 75942- 1350 Apr, Encounter for test, result positive Z32.01 [place] [id number] [place] [address] 65607- 5018 March, [place] [id number] [place] [address] 43135- 9871 March, Bipolar disorder, current episode mixed, moderate F31.62 and Generalized anxiety disorder F41.1 [place] [id number] [place] [address] 60592- 8978 March, Bipolar disorder, current episode mixed, moderate F31.62 and Generalized anxiety disorder F41.1 [place] [id number] [place] [address] 95567- 0804 March, [facility] [address] [address] 2026 March, [facility] [id number] [place] [address] 83888- 9288 Feb, [facility] [address] [place] [address] 49715- 5896 Feb, [facility] [id number] [place] [address] 97730- 5950 Feb, Bipolar disorder, current episode mixed, moderate F31.62 and Generalized anxiety disorder F41.1 [facility] [id number] [place] [address] 46458- 2234 Jan, Abdominal pain R10.9 [facility] [id number] [place] [address] 78945- 7303 Jan, [facility] [id number] [place] [address] 64909- 4670 Dec, Dental examination Z01.20 [facility] [address] [place] [address] 00518- 9360 Dec, Dental examination Z01.20 and Dental caries K02.9 [facility] [address] [place] [address] 23367- 4321 Dec, Bipolar disorder, current episode mixed, moderate F31.62 and Generalized anxiety disorder F41.1 [facility] [address] [place] [address] 26006- 3962 Dec, [facility] [address] [place] [address] 46783- 5327 Nov, Bipolar disorder, current episode mixed, moderate F31.62 ; Generalized anxiety disorder F41.1 and Seizure-like activity R56.9 [facility] [address], [place] [address]- 5574 Oct, [facility] [id number] [place] [address] 54437- 4045 Oct, Bipolar disorder, current episode mixed, moderate F31.[address] 96336- 1889 14 Oct, 2015 Well woman exam Z01.419 [...] Tobacco use Z72.0 and Hot flashes N95.[address] 33150- 7089 09 Oct, 2015 Seizure-like activity R56.9 and Irregular periods N92.[address] 92278- 9849 07 Oct, 2015 Bipolar disorder, current episode mixed, moderate F31.62 ; Generalized anxiety disorder F41.1 and Underweight R63.6 [place] [address] 05083- 5051 Oct, [address] 93314- 0360 Oct, Generalized anxiety disorder F41.1 and Unspecified mood [ affective] disorder F39 [facility] [address] [place] [address] 37268 -7536 Oct, Back pain M54.9 and Anxiety F41.9 [address] [address] 18961- 9046 Oct, [facility] [address] 67085 -7380 Sep, Arm pain, left M79.602 [facility] [address] [place] [address] 07987- 1345 Sep, [facility] [id number] [place] [address] [id number] Sep, Dental examination Z01.20 and Dental caries K02.9 [facility] [id number] [place] [address] 50458- 1168 Sep, Generalized anxiety disorder F41.1 and Unspecified episodic mood disorder F39 [facility] [id number] [place] [address] 06825- 8060 Sep, Bilateral low back pain without sciatica M54.5 and Seizure- like activity R56.9 [facility] [id number] [place] [address] 63732- 2881 Aug, [facility] [id number] [place] [address] 12092- 7024 Aug, [facility] [id number] [place] [address] 63690- 2461 Aug, [facility] [id number] [place] [address] 04740- 2151 Aug, Visual changes H53.9 and Bilateral low back pain without sciatica M54.5 [facility] [id number] [place] [address] 06968- 3752 Jul, [facility] [id number] [place] [address] 58861- 7771 Jun, Bipolar I disorder, most recent episode (or current) mixed, moderate 296.62 ; Generalized anxiety disorder 300.02 and High risk medication use V58.69 [facility] [id number] [place] [address] 68335- 6022 Jun, [facility] [id number] [place] [address] 82320- 9624 May, [facility] [id number] [place] [address] 33211- 6459 May, Bipolar I disorder, most recent episode (or current) mixed, moderate 296.62 and Generalized anxiety disorder 300.02 [facility] [address] [id number] May, Dental examination V72.2 [facility] [address], [place] [address]- 9265 March, Bipolar I disorder, most recent episode (or current) mixed, moderate 296.62 and Generalized anxiety disorder 300.02 [facility] [address] 7157 March, [facility] [id number] [place] [address] 41122- 2468 March, [facility] [id number] [place] [address] 77655- 2864 March, Underweight 783.22 ; Hand pain, right 729.5 [address]ritis 535.40 [facility] [address], [place] [address]- 2441 Feb, [facility] [id number] [place] [address] 73279- 6796 Feb, [facility] [address], [place] [address]- 0825 18 Jan, 2015 [facility] [address], [place] [address]- 9279 18 Jan, 2015 [facility] [address], [place] [address]- 4467 16 Jan, 2015 [facility] [id number] [place] [address] 023198- 5519 [address], 2015 [facility] [address], [place] [address]- 9892 Jan, [facility] [id number] [place] [address] 07265- 8311 Jan, [facility] [place] [facility] [address] [id number] [place] [address]- 3910 05 Jan, 2015 [facility] [place] [facility] [address] [id number] [place] [address]- 3102 05 Jan, 2014 [facility] [place] [facility] [address] [id number] [place] [address]- 0948 04 Jan, 2015 [facility] [place] [facility] [address] [id number] [place] [address]- 4788 04 Jan, 2015 [facility] [place] [facility] [address] [id number] [place] [address]- 1021 02 Jan, 2015 [facility] [place] [facility] [address] [id number] [place] [address]- 9761 Jan, [facility] [place] [facility] [address] [facility] [id number] [place] [address]- 8813 20 Dec, 2014 [facility] [place] [facility] [address] [facility] [id number] [place] [address]- 0380 20 Dec, 2014 [facility] [place] [facility] [address] [id number] [place] [address]- 1374 19 Dec, 2014 [facility] [place] [facility] [address] [facility] [id number] [place] [address]- 6014 19 Dec, 2014 [facility] [place] [facility] [address] [facility] [id number] [place] [address]- 8354 18 Dec, 2014 [facility] [place] [facility] [address] [id number] [place] [address]- 8432 17 Dec, 2014 [facility] [place] [facility] [address] [id number] [place] [address]- 8681 17 Dec, 2014 [facility] [place] [facility] [address] [facility] [id number] [place] [address]- 1247 16 Dec, 2014 [facility] [place] [facility] [address] [facility] [id number] [place] [address]- 1903 16 Dec, 2014 [facility] [place] [facility] [address] [id number] [place] [address]- 1322 Dec, 2014 [facility] [place] [facility] [address] [id number] [place] [address]- 3372 Dec, 2014 [facility] [place] [facility] [address] [id number] [place] [address]- 5806 Dec, 2014 [facility] [place] [facility] [address] [id number] [place] [address]- 6548 Dec, 2014 [facility] [place] [facility] [address] [id number] [place] [address] Dec, 2014 [facility] [place] [facility] [address] [id number] [place] [address] Dec, 2014 [facility] [place] [facility] [address] [facility] [id number] [place] [address] Dec, 2014 [facility] [place] [facility] [address] [facility] [id number] [place] [address] Dec, 2014 [facility] [place] [facility] [address] [facility] [id number] [place] [address] Dec, 2014 [facility] [place] [facility] [address] [facility] [id number] [place] [address] Dec, 2014 [facility] [place] [facility] [address] [facility] [id number] [place] [address] Nov, [facility] [place] [facility] [address] [facility] [id number], [place] [address] Nov, [facility] [place] [facility] [address] [id number], [place] [address] Nov, [facility] [place] [facility] [address] [facility] [id number] [place] [address] Nov, [facility] [place] [facility] [address] [facility] [id number], [place] [address] Nov, [facility] [place] [facility] [address] [facility] [id number], [place] [address] Nov, [facility] [place] [facility] [address] [id number] [place] [id number] Nov, [facility] [place] [facility] [address] [id number] [place] [address] Nov, [facility] [place] [facility] [address] [id number] [place] [address] Nov, [facility] [place] [facility] [address] [id number] [id number] Nov, [facility] [place] [facility] [address] [id number] [place] [address] Nov, [facility] [place] [facility] [address] [id number] [place] [address] Nov, [facility] [place] [facility] [address] [id number] [place] [address] 3[address] Oct, [facility] [place] [facility] [address] [id number] [place] [address] 4114 Oct, [facility] [place] [facility] [address] [id number] [place] [address] Oct, [facility] [place] [facility] [address] [id number] [place] [address] 5924 Oct, [facility] [place] [facility] [address] [id number] [place] [address]- 2961 Oct, [facility] [place] [facility] [address] [id number], [place] [address] 29 Oct, 2014 [facility] [place] [facility] [address] [id number] [place] [address]- 5358 Oct, [facility] [place] [facility] [address] [id number] [place] [address]- 7646 Oct, [facility] [place] [facility] [address] [id number] [place] [address]- 8342 17 Oct, 2014 [facility] [place] [facility] [address] [id number] [place] [address]- 1410 Oct, [facility] [place] [facility] [address] [id number] [place] [address]- 1844 Oct, [facility] [place] [facility] [address] [id number] [place] [address]- 6707 Oct, [facility] [place] [facility] [address] [id number] [place] [address]- 4014 Sep, [facility] [place] [facility] [address] [id number] [place] [address]- 7979 Sep, [facility] [place] [facility] [address] [id number] [place] [address]- 3540 Sep, [facility] [place] [facility] [address] [id number] [place] [address]- 7714 Sep, [facility] [place] [facility] [address] [id number] [place] [address]- 4218 Sep, [facility] [place] [facility] [address] [id number] [place] [address]- 9288 Sep, [facility] [place] [facility] [address] [id number] [place] [address] Sep, [facility] [place] [facility] [address] [facility] [id number] [place] [address]- 7245 Sep, [facility] [place] [facility] [address] [id number] [place] [address]- 5681 Aug, [facility] [place] [facility] [address] [id number] [place] [address]- 3244 Aug, [facility] [place] [facility] [address] [id number] [place] [address]- 0382 Aug, [facility] [place] [facility] [address] [id number] [place] [address]- 8205 Aug, [facility] [place] [facility] [address] [id number] [place] [address]- 6110 Aug, [facility] [place] [facility] [address] [id number] [place] [address]- 2016 Aug, [facility] [place] [facility] [address] [id number] [place] [address]- 2302 Aug, [facility] [place] [facility] [address] [id number] [place] [address] Aug, [facility] [place] [facility] [address] [id number] [place] [address]- 4695 Aug, [facility] [place] [facility] [address] [id number] [place] [address]- 0077 Aug, [facility] [place] [facility] [address] [id number] [place] [address]- 6117 Aug, [facility] [place] [facility] [address] [id number] [place] [address]- 5701 Aug, [facility] [place] [facility] [address] [id number] [place] [address]- 1897 Aug, [facility] [place] [facility] [address] [id number] [place] [address]- 0037 Jul, [facility] [place] [facility] [address] [id number] [place] [address]- 1660 Jul, [facility] [place] [facility] [address] [id number] [place] [address]- 4431 Jul, [facility] [place] [facility] [address] [id number], [place] [address] 1809 Jul, [facility] [place] [facility] [address] [id number] [place] [address]- 1125 Jun, [facility] [place] [facility] [address] [id number] [place] [address]- 4113 Jun, [facility] [place] [facility] [address] [id number] [place] [address]- 9555 Jun, [facility] [place] [facility] [address] [id number] [place] [address]- 3106 Jun, [facility] [place] [facility] [address] [id number] [place] [address]- 7930 Jun, [facility] [place] [facility] [address] [id number] [place] [address]- 8758 Jun, [facility] [place] [facility] [address] [id number] [place] [address]- 3093 May, [facility] [place] [facility] [address] [id number] [place] [address]- 6596 May, [facility] [place] [facility] [address] [id number] [place] [address]- 0268 May, [facility] [place] [facility] [address] [id number] [place] [address]- 2359 May, [facility] [place] [facility] [address] [id number] [place] [address]- 5815 Apr, [facility] [place] [facility] [address] [id number] [place] [address]- 3979 Apr, [facility] [place] [facility] [address] [id number] [place] [address]- 7421 March, [facility] [place] [facility] [address] [id number] [place] [address]- 9764 March, [facility] [place] [facility] [address] [id number] [place] [address]- 0258 March, [facility] [place] [facility] [address] [id number] [place] [address]- 2057 March, [facility] [place] [facility] [address] [id number] [place] [address]- 0033 March, [facility] [place] [facility] [address] [id number] [place] [address]- 7234 March, [facility] [place] [facility] [address] [id number] [place] [address]- 2407 Feb, [facility] [place] [facility] [address] [id number] [place] [address]- 3876 Feb, [facility] [place] [facility] [address] [id number] [place] [address]- 8767 Dec, [facility] [place] [facility] [address] [id number] [place] [address] Dec, [facility] [place] [facility] [address] [id number] [place] [address]- 1036 Nov, [facility] [place] [facility] [address] [id number] [place] [address]- 9948 Nov, [facility] [place] [facility] [address] [id number] [place] [address]- 2990 Sep, [facility] [place] [facility] [address] [id number] [place] [address]- 5432 Sep, [facility] [place] [facility] [address] [id number] [place] [address]- 4261 Sep, [facility] [place] [facility] [address] [id number] [place] [address]- 9885 Sep, [facility] [place] [facility] [address] [id number] [place] [address]- 9897 Sep, [facility] [place] [facility] [address] [id number] [place] [address]- 8732 Sep, [facility] [place] [facility] [address] [id number] [place] [address]- 9014 Sep, [facility] [place] [facility] [address] [id number] [place] [address]- 0576 Aug, [facility] [place] [facility] [address] [id number] [place] [address]- 0271 Aug, [facility] [place] [facility] [address] [id number] [place] [address]- 4899 Aug, [facility] [place] [facility] [address] [id number] [place] [address]- 8013 Aug, [facility] [place] [facility] [address] [id number] [place] [address]- 2692 Aug, [facility] [place] [facility] [address] [id number] [place] [address]- 6703 Aug, [facility] [place] [facility] [address] [id number] [place] [address]- 6624 Jul, [facility] [place] [facility] [address] [id number] [place] [address]- 7420 Jul, [facility] [place] [facility] [address] [id number] [place] [address]- 7069 Jul, [facility] [place] [facility] [address] [id number] [place] [address]- 4910 Jul, [facility] [place] [facility] [address] [id number] [place] [address]- 9200 Jun, [facility] [place] [facility] [address] [id number] [place] [address]- 7676 Jun, [facility] [place] [facility] [address] [id number] [place] [address]- 1038 Jun, [facility] [place] [facility] [address] [id number] [place] [address]- 3778 Jun, [facility] [place] [facility] [address] [id number], [place] [address]- 2342 Jun, [facility] [place] [facility] [address] [id number], [place] [address]- 7331 Jun, [facility] [place] [facility] [address] [id number] [place] [address]- 5236 Jun, [facility] [place] [facility] [address] [id number], [place] [address]- 2031 May, [facility] [place] [facility] [address] [id number] [place] [address]- 1780 May, [facility] [place] [facility] [address] [id number] [place] [address]- 1991 16 May, 2012 [facility] [place] [facility] [address] [id number] [place] [address]- 6244 15 May, 2013 [facility] [place] [facility] [address] [id number] [place] [address]- 5558 13 May, 2013 [facility] [place] [facility] [address] [id number] [place] [address]- 6588 05 May, 2013 [facility] [place] [facility] [address] [id number] [place] [address]- 0047 03 May, 2013 [facility] [place] [facility] [address] [id number] [place] [address]- 1580 28 Apr, 2013 [facility] [place] [facility] [address] [id number] [place] [address]- 9897 27 Apr, 2013 [facility] [place] [facility] [address] [id number] [place] [address]- 9990 27 Apr, 2013 [facility] [place] [facility] [address] [id number] [place] [address]- 2516 26 Apr, 2013 [facility] [place] [facility] [address] [id number] [place] [address]- 1811 20 Apr, 2013 [facility] [place] [facility] [address] [id number] [place] [address]- 0567 18 Apr, 2013 [facility] [place] [facility] [address] [id number] [place] [address]- 6937 18 Apr, 2013 [facility] [place] [facility] [address] [id number] [place] [address]- 2701 18 Apr, 2013 [facility] [place] [facility] [address] [id number] [place] [address]- 6080 17 Apr, 2013 [facility] [place] [facility] [address] [id number] [place] [address]- 4948 14 Apr, 2013 [facility] [place] [facility] [address] [id number] [place] [address]- 3458 14 Apr, 2013 [facility] [place] [facility] [address] [id number] [place] [address]- 3736 Apr, [facility] [address] [id number] [place] [address]- 8907 Apr, [facility] [address] [id number] [place] [address]- 3681 Apr, [facility] [address] [id number] [place] [address]- 6058 Apr, [facility] [address] [id number] [place] [address]- 6963 Apr, [facility] [address] [id number] [place] [address]- 5463 Apr, [facility] [address] [id number] [place] [address]- 6335 Apr, [facility] [address] [id number] [place] [address]- 1441 Apr, [facility] [address] [id number] [place] [address]- 8923 March, [facility] [address] [id number] [place] [address]- 7742 March, [facility] [address] [id number] [place] [address]- 2368 March, [facility] [address] [id number] [place] [address]- 6753 March, [facility] [address] [id number] [place] [address]- 2909 March, [facility] [place] [facility] [address] [id number] [place] [address]- 9592 March, [facility] [address] [id number] [place] [address]- 9710 March, [facility] [address] [id number] [place] [address]- 2546 12 Feb, 2013 [facility] [address] [id number] [place] [address]- 6348 03 Feb, 2013 [facility] [place] [facility] [address] [id number] [place] [address]- 5018 27 Jan, 2013 [facility] [place] [facility] [address] [id number] [place] [address]- 4718 18 Jan, 2013 [facility] [place] [facility] [address] [id number] [place] [address]- 1659 15 Jan, 2013 [facility] [place] [facility] [address] [id number] [place] [address]- 2757 14 Jan, 2013 [facility] [place] [facility] [address] [id number] [place] [address]- 9433 13 Jan, 2013 [facility] [place] [facility] [address] [id number] [place] [address]- 5425 12 Jan, 2013 [facility] [place] [facility] [address] [id number] [place] [address]- 0274 11 Jan, 2013 [facility] [place] [facility] [address] [id number] [place] [address]- 7775 09 Jan, 2013 [facility] [place] [facility] [address] [id number] [place] [address]- 4721 08 Jan, 2013 [facility] [place] [facility] [address] [id number] [place] [address]- 3682 07 Jan, 2013 [facility] [place] [facility] [address] [id number] [place] [address]- 5136 06 Jan, 2013 [facility] [place] [facility] [address] [id number] [place] [address]- 6561 17 Nov, 2012 [facility] [place] [facility] [address] [id number] [place] [address]- 5202 Oct, [facility] [place] [facility] [address] [id number] [place] [address]- 7671 Oct, [facility] [place] [facility] [address] [id number] [place] [address]- 6998 Oct, [facility] [place] [facility] [address] [id number] [place] [address]- 4982 Oct, [facility] [place] [facility] [address] [id number] [place] [address]- 5667 Sep, [facility] [place] [facility] [address] [id number] [place] [address]- 0583 Sep, [facility] [place] [facility] [address] [id number] [place] [address]- 7782 Sep, [facility] [place] [facility] [address] [id number] [place] [address]- 8344 Sep, [facility] [place] [facility] [address] [id number] [place] [address]- 3416 Sep, [facility] [place] [facility] [address] [id number] [place] [address]- 6192 Sep, [facility] [place] [facility] [address] [id number] [place] [address]- 7856 Sep, [facility] [place] [facility] [address] [id number] [place] [address]- 6191 Sep, [facility] [place] [facility] [address] [facility] [id number] [place] [address]- 0921 Sep, [facility] [place] [facility] [address] [id number] [place] [address]- 0603 Sep, [facility] [place] [facility] [address] [id number] [place] [address]- 4605 Sep, [facility] [place] [facility] [address] [id number] [place] [address]- 7154 Aug, [facility] [place] [facility] [address] [id number] [place] [address]- 6832 Aug, [facility] [place] [facility] [address] [id number] [place] [address]- 1067 Aug, [facility] [place] [facility] [address] [id number] [place] [address]- 9099 28 Jul, 2012 [facility] [place] [facility] [address] [id number] [place] [address]- 8271 25 Jul, 2012 [facility] [place] [facility] [address] [id number] [place] [address]- 2309 19 Jul, 2012 [facility] [place] [facility] [address] [id number] [place] [address]- 9012 17 Jul, 2012 [facility] [place] [facility] [address] [id number] [place] [address]- 6602 20 Jun, 2012 [facility] [place] [facility] [address] [id number] [place] [address]- 5562 16 Jun, 2012 [facility] [place] [facility] [address] [id number] [place] [address]- 0863 15 Jun, 2012 [facility] [place] [facility] [address] [id number] [place] [address]- 0782 15 Jun, 2012 [facility] [place] [facility] [address] [id number] [place] [address]- 6335 13 Jun, 2012 [facility] [place] [facility] [address] [id number] [place] [address]- 9948 March, [facility] [place] [facility] [address] [id number] [place] [address]- 6808 04 Feb, 2012 [facility] [place] [facility] [address] [id number], [place] [address]- 6128 28 Jan, 2012 [facility] [place] [facility] [address] [id number] [place] [address]- 3495 27 Jan, 2012 [facility] [place] [facility] [address] [id number] [place] [address]- 4171 22 Jan, 2012 [facility] [place] [facility] [address] [id number] [place] [address]- 8535 14 Jan, 2012 [facility] [place] [facility] [address] [id number], [place] [address]- 5079 14 Jan, 2012 [facility] [address] [id number] [place] [address]- 6158 14 Jan, 2012 [facility] [place] [facility] [address] [id number] [place] [address]- 9036 28 Dec, 2011 [facility] [place] [facility] [address] [id number] [place] [address]- 7646 27 Dec, 2011 [facility] [place] [facility] [address] [id number] [place] [address]- 1591 23 Dec, 2011 [facility] [place] [facility] [address] [id number] [place]872 21 Dec, 2011 [facility] [place] [facility] [address] [id number] [place] [address]- 1876 20 Dec, 2011 [facility] [place] [facility] [address] [id number] [place] [address]- 9620 19 Dec, 2011 [facility] [place] [facility] [address] [facility] [id number] [place] [address]- 5786 17 Dec, 2011 [facility] [place] [facility] [id number] [place] [address]- 4255 16 Dec, 2011 [facility] [address] [id number] [place] [address]- 2398 31 Nov, 2011 [facility] [place] [facility] [address] [facility] [id number] [place] [address]- 8458 13 Oct, 2011 [facility] [place] [facility] [address] [id number] [place] [address] 254 18 Sep, 2011 [facility] [place] [facility] [address] [id number] [place] [address]- 1303 18 Sep, 2011 [facility] [place] [facility] [address] [facility] [id number] [place] [address]- 6436 17 Sep, 2011 [facility] [place] [facility] [address] [facility] [id number] [place] [address]- 3356 Sep, [facility] [address] [facility] [id number] [place] [address] 3036 Sep, [facility] [address] [facility] [id number] [address]- 2546 Sep, [facility] [address] [facility] [id number], [place] [address] 6[address] Jan, [facility] [address] [facility] [id number], [place] [address]- 5096 Apr, IMMUNIZATIONS No Known Immunizations SOCIAL HISTORY Never Assessed [place] FOR [place] [facility] [place] VITAL SIGNS MEDICATIONS No Known Medications RESULTS No Results PROCEDURES No Known [...] History Left ovary removed 12/2017 Hospitalization History [facility] Admission x4 2009 most recent admission Hospitalization History [facility]; overdose 2010 Hospitalization History child 11/29/2016
--- OUTSIDE RECORDS SUMMARY | 2019-03-04 16:39 | XMS REPORT ---
Author Author Migration, Doctor Organization [facility] Address Unknown Phone Unavailable Care Team Providers Care Communications Project Manager Name Role Phone Migration, Doctor Unavailable Unavailable PROBLEMS Type Condition ICD9-CM Code YPS14-RV Code Onset Dates Condition Status SNOMED Code Problem Generalized anxiety disorder F41.1 Active 66538828 Problem Bipolar disorder, current episode mixed, moderate F31.62 Active 318668722 Problem Acute non intractable tension-type headache G44.209 Active 643677493 Problem Constipation K59.00 Active 31385954 Problem Post traumatic stress disorder F43.10 Active 22709065 Problem Borderline personality disorder F60.3 Active 26703579 Problem Endometriosis N80.9 Active 484466041 Problem Acute right-sided low back pain with right-sided sciatica M54.41 Active [id number] ALLERGIES No Information ENCOUNTERS Encounter Location Date Diagnosis [facility] [id number] [place] [address] 43292 -5017 Jan, Cough R05 and Viral upper respiratory tract infection J06.9 [place] [id number] [place] [address] 99225- 6846 Jan, Bipolar disorder, current episode mixed, moderate F31.62 [place] [id number] [place] [address] 95707- 8176 Dec, Bipolar disorder, current episode mixed, moderate F31.62 [place] [id number] [place] [address] 69551- 1849 Nov, Bipolar disorder, current episode mixed, moderate F31.62 [facility] [id number] [place] [address] 26191 -4817 Oct, Sore throat J02.9 [facility] [id number] [place] [address] 90924 -2067 Oct, Abdominal pain R10.9 ; Low back pain M54.5 ; Left shoulder pain M25.512 and Constipation K59.00 [place] [id number] [place] [address] 76657- 9204 Oct, Bipolar disorder, current episode mixed, moderate F31.62 ; Post traumatic stress disorder F43.10 and Borderline personality disorder F60.3 [place] [id number] [place] [address] 48890- 8125 Sep, Bipolar disorder, current episode mixed, moderate F31.62 [place] [id number] [place] [address]- [address] Aug, Bipolar disorder, current episode mixed, moderate F31.62 [place] [id number] [place] 8347 Jul, Thrombophlebitis I80.9 and Pelvic pain R10.2 [place] [address] 30635- 9495 05 Jul, 2018 Bipolar disorder, current episode mixed, moderate F31.62 ; Post traumatic stress disorder F43.10 and Borderline personality disorder F60.3 [place] [id number] [place] [address] 46625- 4964 Jun, Bipolar disorder, current episode mixed, moderate F31.62 [place] [id number] [place] [address] 57099- 4837 May, Palpitations R00.2 [place] [id number] [place] [address] 51870- 5532 May, Palpitations R00.2 [place] [id number] [place] [address] 85240- 0686 May, Palpitations R00.2 and Frequent bowel movements R19.4 [place] [id number] [place] [address] 85274- 7786 May, Bipolar disorder, current episode mixed, moderate F31.62 ; Post traumatic stress disorder F43.10 and Borderline personality disorder F60.3 [facility] [id number] [id number] 15 Apr, 2018 Dental examination Z01.20 [facility] [address], [place] [address] 15 Apr, 2018 [facility] [address] [place] [address] 57343- 1457 15 Apr, 2018 Dental examination Z01.20 [facility] [address] [place] [address] 00568 -7409 15 Apr, 2018 Tooth pain K08.89 [facility] [id number] [place] [address] 22683- 1374 06 Apr, 2018 Bipolar disorder, current episode mixed, moderate F31.62 ; Post traumatic stress disorder F43.10 and Borderline personality disorder F60.3 [facility] [id number] [place] [address] 94205 -4385 18 Mar, 2018 Abdominal pain R10.9 ; UTI symptoms R39.9 and Other microscopic hematuria R31.29 [facility] [address] [place] [address] 19096- 5787 March, [facility] [id number] [place] [address] 61765- 4766 March, Bipolar disorder, current episode mixed, moderate F31.62 ; Post traumatic stress disorder F43.10 and Borderline personality disorder F60.3 [facility] [address] [place] [address] 79005- 0210 30 Feb, 2018 Encounter for immunization Z23 [facility] [id number] [place] [address] 86130- 0463 16 Feb, 2018 Bipolar disorder, current episode mixed, moderate F31.62 ; Post traumatic stress disorder F43.10 and Borderline personality disorder F60.3 [facility] [address] [place] [address] 30327- 7839 Feb, Bipolar disorder, current episode mixed, moderate F31.62 ; Post traumatic stress disorder F43.10 ; Borderline personality disorder F60.3 and 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 [address] 70374- 7205 Jan, Encounter for immunization Z23 [facility] [id number] [place] [address] 92543- 8475 Jan, [facility] [address] 67105- 2066 Jan, Bipolar disorder, current episode mixed, moderate F31.62 [facility] [address] 68936 -6699 Jan, Lumbar back pain M54.5 [place] [address] 39359- 3401 Dec, Low back pain M54.5 [place] [address] 42989- 2458 Dec, Bipolar disorder, current episode mixed, moderate F31.62 [place] [address] 51715- 2841 Dec, Generalized anxiety disorder F41.1 and Bipolar disorder, current episode mixed, moderate F31.62 [facility] [id number] [place] [address] 36445 -1533 Nov, Acute non intractable tension-type headache G44.209 [facility] [id number] [place] [address] 62887- 3315 Nov, Bipolar disorder, current episode mixed, moderate F31.62 ; Post traumatic stress disorder F43.10 and Borderline personality disorder F60.3 [place] [id number] [place] [address] 20792- 7838 Nov, Bipolar disorder, current episode mixed, moderate F31.62 [facility] [address] 28107 -8535 Nov, Abdominal pain R10.9 ; History of PCOS Z87.42 ; History of endometriosis Z87.42 and Pelvic pain R10.2 [place] [id number] [place] [address] 72285- 3410 Nov, [facility] [id number] [place] [address] 79690 -4109 Oct, History of PCOS Z87.42 ; History of endometriosis Z87.42 and Pain R52 [place] [id number] [place] [address] 36909- 4995 Oct, Bipolar disorder, current episode mixed, moderate F31.62 ; Post traumatic stress disorder F43.10 and Borderline personality disorder F60.3 [place] [id number] [place] [address] 74286- 5868 Oct, Bipolar disorder, current episode mixed, moderate F31.62 [place] [id number] [place] [address] 54518- 3469 Sep, Bipolar disorder, current episode mixed, moderate F31.62 ; Post traumatic stress disorder F43.10 ; Borderline personality disorder F60.3 and Other custodial (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 Z79.899 [place] [address] [place] [address] 56059- 4301 Sep, Bipolar disorder, current episode mixed, moderate F31.62 [facility] [address] [place] [address] 71683 -0395 Sep, Endometriosis N80.9 and Acute right-sided low back pain with right-sided sciatica M54.41 [place] [id number] [place] [address] 19806- 4534 Aug, [place] [id number] [place] [address] 74133- 4501 Aug, Bipolar disorder, current episode mixed, moderate F31.62 ; Post traumatic stress disorder F43.10 and Borderline personality disorder F60.3 [place] [id number] [address]- 1303 11 Aug, 2017 Bipolar disorder, current episode mixed, moderate F31.62 ; Post traumatic stress disorder F43.10 and Borderline personality disorder F60.3 [facility] [address] [place] [address] 42105- 1919 13 Jul, 2017 Bipolar disorder, current episode mixed, moderate F31.62 ; Post traumatic stress disorder F43.10 and Borderline personality disorder F60.3 [facility] [address] [place] [address] 65087 -9396 11 Jul, 2017 Pharyngitis, unspecified etiology J02.9 and Streptococcal pharyngitis J02.0 [facility] [address] [place] [address] 37946- 8852 16 Jun, 2017 Bipolar disorder, current episode mixed, moderate F31.62 ; Post traumatic stress disorder F43.10 and Borderline personality disorder F60.3 [place] [id number] [place] [address] 21210- 4129 May, [facility] [id number] [place] [address] 46620- 1780 May, [facility] [id number] [place] [address] 02433- 5313 May, Bipolar disorder, current episode mixed, moderate F31.62 and Generalized anxiety disorder F41.1 [facility] [id number] [place] [address] 14232- 8748 March, Bipolar disorder, current episode mixed, moderate F31.62 and Generalized anxiety disorder F41.1 [place] [id number] [place] [address] 02786- 1054 March, Pelvic pain R10.2 [facility] [address] [place] [address] 31730- 1603 March, [facility] [id number] [place] [address] 03817- 2069 Feb, Bipolar disorder, current episode mixed, moderate F31.62 and Generalized anxiety disorder F41.1 [facility] [id number] [place]- 0963 Jan, [facility] [id number] [place]- 1606 Jan, Bipolar disorder, current episode mixed, moderate F31.62 [facility] [address] 722234- 0883 Jan, Bipolar disorder, current episode mixed, moderate F31.62 [facility] [id number] [place] [address] 4997 Jan, Bilateral low back pain without sciatica M54.5 [facility] [id number] [place] [address] [id number] Jan, Dental caries K02.9 and Dental examination Z01.20 [facility] [address] [id number] Jan, Encounter for dental examination and cleaning without abnormal findings Z01.20 [facility] [id number] [place] [address]- 7116 Jan, Bipolar disorder, current episode mixed, moderate F31.62 and Generalized anxiety disorder F41.1 [facility] [id number] [place] [address] 60220- 0655 Dec, [facility] [id number] [place] [address]- 0997 Dec, Bipolar disorder, current episode mixed, moderate F31.62 and Generalized anxiety disorder F41.1 [facility] [id number] [place]- 2442 Dec, Other fatigue R53.83 and Orthostatic hypotension I95.1 [facility] [id number] [place] [address] [id number] Nov, Dental examination Z01.20 [facility] [id number] [address]5 02 Nov, 2016 Bronchitis J40 [facility] [id number] [place] [address] 70777- 4154 14 Oct, 2016 Generalized anxiety disorder F41.1 [facility] [id number] [place] [address] 96950- 4004 14 Sep, 2016 Bipolar disorder, current episode mixed, moderate F31.62 and Generalized anxiety disorder F41.1 [facility] [id number] [place] [address] 76352- 2046 02 Sep, 2016 Bipolar disorder, current episode mixed, moderate F31.62 and Generalized anxiety disorder F41.1 [facility] [id number] [place] [address] 12563 -7853 08 Jul, 2016 Upper respiratory tract infection, unspecified type J06.9 [place] [id number] [place] [address] 96822- 6857 Jun, Bipolar disorder, current episode mixed, moderate F31.62 and Generalized anxiety disorder F41.1 [place] [id number] [place] [address] 55329- 7787 Apr, [place] [id number] [place] [address] 16418- 8901 Apr, Encounter for test, result positive Z32.01 [place] [id number] [place] [address] 89965- 5373 March, [place] [id number] [place] [address] 07508- 9455 March, Bipolar disorder, current episode mixed, moderate F31.62 and Generalized anxiety disorder F41.1 [place] [id number] [place] [address] 72168- 5421 March, Bipolar disorder, current episode mixed, moderate F31.62 and Generalized anxiety disorder F41.1 [place] [id number] [place] [address] 40715- 1492 March, [facility] [address], [place] [address]- 4408 March, [facility] [address] [place] [address] 65563- 2224 Feb, [facility] [address] [place] [address] 19062- 0604 Feb, [facility] [id number] [place] [address] 55736- 1920 Feb, Bipolar disorder, current episode mixed, moderate F31.62 and Generalized anxiety disorder F41.1 [facility] [id number] [place] [address] 87295- 6545 Jan, Abdominal pain R10.9 [facility] [address] [place] [address] 60965- 2508 Jan, [facility] [id number] [place] [address] 02630- 9528 Dec, Dental examination Z01.20 [facility] [address] [place] [address] 03973- 3866 Dec, Dental examination Z01.20 and Dental caries K02.9 [facility] [address] [place] [address] 40190- 7311 Dec, Bipolar disorder, current episode mixed, moderate F31.62 and Generalized anxiety disorder F41.1 [facility] [address] [place] [address] 78328- 0608 Dec, [facility] [address] [place] [address] 60005- 3437 Nov, Bipolar disorder, current episode mixed, moderate F31.62 ; Generalized anxiety disorder F41.1 and Seizure-like activity R56.9 [facility] [address] [address]- 1060 Oct, [facility] [id number] [place] [address] 50798- 6708 Oct, Bipolar disorder, current episode mixed, moderate F31.[address] 12278- 6883 14 Oct, 2015 Well woman exam Z01.419 [...] Tobacco use Z72.0 and Hot flashes N95.[address] 85106- 4684 09 Oct, 2015 Seizure-like activity R56.9 and Irregular periods N92.[address] 97102- 2356 07 Oct, 2015 Bipolar disorder, current episode mixed, moderate F31.62 ; Generalized anxiety disorder F41.1 and Underweight R63.6 [place] [address] 08957- 5573 Oct, [address] 68547- 0784 Oct, Generalized anxiety disorder F41.1 and Unspecified mood [ affective] disorder F39 [facility] [address] [place] [address] 78594 -5775 Oct, Back pain M54.9 and Anxiety F41.9 [place] [address] 79441- 5648 Oct, [facility] [address] 15402 -0587 Sep, Arm pain, left M79.602 [facility] [address] [place] [address] 53242- 1679 Sep, [facility] [id number] [place] [address] [id number] Sep, Dental examination Z01.20 and Dental caries K02.9 [facility] [id number] [place] [address] 00995- 5063 Sep, Generalized anxiety disorder F41.1 and Unspecified episodic mood disorder F39 [facility] [id number] [place] [address] 30313- 5219 Sep, Bilateral low back pain without sciatica M54.5 and Seizure- like activity R56.9 [facility] [id number] [place] [address] 83113- 6068 Aug, [facility] [id number] [place] [address] 35602- 4003 Aug, [facility] [id number] [place] [address] 81048- 8163 Aug, [facility] [id number] [place] [address] 53562- 2887 Aug, Visual changes H53.9 and Bilateral low back pain without sciatica M54.5 [facility] [id number] [place] [address] 10339- 1769 Jul, [facility] [id number] [place] [address] 45508- 5189 Jun, Bipolar I disorder, most recent episode (or current) mixed, moderate 296.62 ; Generalized anxiety disorder 300.02 and High risk medication use V58.69 [facility] [id number] [place] [address] 68832- 0936 Jun, [facility] [id number] [place] [address] 40979- 6831 May, [facility] [id number] [place] [address] 58990- 1359 May, Bipolar I disorder, most recent episode (or current) mixed, moderate 296.62 and Generalized anxiety disorder 300.02 [facility] [address] [id number] May, Dental examination V72.2 [facility] [address], [place] [address]- 4550 March, Bipolar I disorder, most recent episode (or current) mixed, moderate 296.62 and Generalized anxiety disorder 300.02 [facility] [address]- 3885 March, [facility] [id number] [place] [address] 47904- 7281 March, [facility] [id number] [place] [address] 47626- 5509 March, Underweight 783.22 ; Hand pain, right 729.5 and Reflux gastritis 535.40 [facility] [address], [place] [address]- 5456 Feb, [facility] [id number] [place] [address] 68056- 5099 Feb, [facility] [address], [place] [address]- 4258 18 Jan, 2015 [facility] [address], [place] [address]- 8228 18 Jan, 2015 [facility] [address], [place] [address]- 3014 16 Jan, 2015 [facility] [address] [place] [address] 231302- 9668 16 Jan, 2015 [facility] [address], [place] [address]- 1926 Jan, [facility] [address] [place] [address] 80489- 0433 Jan, [facility] [place] [facility] [address] [id number] [place] [address]- 4832 05 Jan, 2015 [facility] [place] [facility] [address] [id number] [place] [address]- 0584 05 Jan, 2014 [facility] [place] [facility] [address] [id number] [place] [address]- 9289 04 Jan, 2015 [facility] [place] [facility] [address] [id number] [place] [address]- 0661 04 Jan, 2015 [facility] [place] [facility] [address] [id number] [place] [address]- 6584 02 Jan, 2015 [facility] [place] [facility] [address] [id number] [place] [address]- 4428 Jan, [facility] [place] [facility] [address] [facility] [id number] [place] [address]- 1310 20 Dec, 2014 [facility] [place] [facility] [address] [facility] [id number] [place] [address]- 4478 20 Dec, 2014 [facility] [place] [facility] [address] [id number] [place] [address]- 9845 19 Dec, 2014 [facility] [place] [facility] [address] [facility] [id number] [place] [address]- 9206 19 Dec, 2014 [facility] [place] [facility] [address] [facility] [id number] [place] [address]- 4175 18 Dec, 2014 [facility] [place] [facility] [address] [id number] [place] [address]- 9106 17 Dec, 2014 [facility] [place] [facility] [address] [id number] [place] [address]- 0333 17 Dec, 2014 [facility] [place] [facility] [address] [facility] [id number] [place] [address] 16 Dec, 2014 [facility] [place] [facility] [address] [facility] [id number] [place] [address] 16 Dec, 2014 [facility] [place] [facility] [address] [id number] [place] [address] Dec, 2014 [facility] [place] [facility] [address] [id number] [place] [address] Dec, 2014 [facility] [place] [facility] [address] [id number] [place] [address] Dec, 2014 [facility] [place] [facility] [address] [id number] [place] [address] Dec, 2014 [facility] [place] [facility] [address] [id number] [place] [address] Dec, 2014 [facility] [place] [facility] [address] [id number] [place] [address] Dec, 2014 [facility] [place] [facility] [address] [facility] [id number] [place] [address] Dec, 2014 [facility] [place] [facility] [address] [place] [facility] [id number] [place] [address] Dec, 2014 [facility] [place] [facility] [address] [facility] [id number] [place] [address] Dec, 2014 [facility] [place] [facility] [address] [facility] [id number] [place] [address] Dec, 2014 [facility] [place] [facility] [address] [facility] [id number] [place] [address] Nov, [facility] [place] [facility] [address] [facility] [id number], [place] [address] Nov, [facility] [place] [facility] [address] [id number], [place] [address] Nov, [facility] [place] [facility] [address] [facility] [id number] [place] [address] 8769 Nov, [facility] [place] [facility] [address] [facility] [id number], [place] [address] 6[address] Nov, [facility] [place] [facility] [address] [facility] [id number], [place] [address] Nov, [facility] [place] [facility] [address] [id number] [place] [id number] Nov, [facility] [place] [facility] [address] [id number] [place] [address]- 6266 Nov, [facility] [place] [facility] [address] [id number] [place] [address]- 7716 Nov, [facility] [place] [facility] [address] [id number] [id number] Nov, [facility] [place] [facility] [address] [id number] [place] [address]- 8614 Nov, [facility] [place] [facility] [address] [id number] [place] [address]- 4218 Nov, [facility] [place] [facility] [address] [id number] [place] [address]- 1689 Oct, [facility] [place] [facility] [address] [id number] [place] [address] 8815 Oct, [facility] [place] [facility] [address] [id number] [place] [address] Oct, [facility] [place] [facility] [address] [id number] [place] [address]- 5260 Oct, [facility] [place] [facility] [address] [id number] [place] [address]- 5318 Oct, [facility] [place] [facility] [address] [id number], [place] [address]- 0[address] 29 Oct, 2014 [facility] [place] [facility] [address] [id number] [place] [address]- 6097 Oct, [facility] [place] [facility] [address] [id number] [place] [address]- 0418 Oct, [facility] [place] [facility] [address] [id number] [place] [address]- 8254 17 Oct, 2014 [facility] [place] [facility] [address] [id number] [place] [address]- 7010 Oct, [facility] [place] [facility] [address] [id number] [place] [address]- 3023 Oct, [facility] [place] [facility] [address] [id number] [place] [address]- 9805 Oct, [facility] [place] [facility] [address] [id number] [place] [address]- 7197 Sep, [facility] [place] [facility] [address] [id number] [place] [address]- 4887 Sep, [facility] [place] [facility] [address] [id number] [place] [address]- 4788 Sep, [facility] [place] [facility] [address] [id number] [place] [address]- 3413 Sep, [facility] [place] [facility] [address] [id number] [place] [address]- 9402 Sep, [facility] [place] [facility] [address] [id number] [place] [address]- 4413 Sep, [facility] [place] [facility] [address] [id number] [place] [address]- 4075 Sep, [facility] [place] [facility] [address] [facility] [id number] [place] [address]- 7034 Sep, [facility] [place] [facility] [address] [id number] [place] [address]- 5380 Aug, [facility] [place] [facility] [address] [id number] [place] [address]- 2988 Aug, [facility] [place] [facility] [address] [id number] [place] [address]- 7495 Aug, [facility] [place] [facility] [address] [id number] [place] [address]- 3774 Aug, [facility] [place] [facility] [address] [id number] [place] [address]- 8855 Aug, [facility] [place] [facility] [address] [id number] [place] [address]- 1197 Aug, [facility] [place] [facility] [address] [id number] [place] [address]- 8310 Aug, [facility] [place] [facility] [address] [id number] [place] [address] Aug, [facility] [place] [facility] [address] [id number] [place] [address]- 1346 Aug, [facility] [place] [facility] [address] [id number] [place] [address]- 7857 Aug, [facility] [place] [facility] [address] [id number] [place] [address]- 3968 Aug, [facility] [place] [facility] [address] [id number] [place] [address]- 3234 Aug, [facility] [place] [facility] [address] [id number] [place] [address]- 9341 Aug, [facility] [place] [facility] [address] [id number] [place] [address]- 3991 Jul, [facility] [place] [facility] [address] [id number] [place] [address]- 3560 Jul, [facility] [place] [facility] [address] [id number] [place] [address]- 4047 Jul, [facility] [place] [facility] [address] [id number], [place] [address]- 8661 Jul, [facility] [place] [facility] [address] [id number] [place] [address]- 0083 Jun, [facility] [place] [facility] [address] [id number] [place] [address]- 6457 Jun, [facility] [place] [facility] [address] [id number] [place] [address]- 0778 Jun, [facility] [place] [facility] [address] [id number] [place] [address]- 2519 Jun, [facility] [place] [facility] [address] [id number] [place] [address]- 7235 Jun, [facility] [place] [facility] [address] [id number] [place] [address]- 6558 Jun, [facility] [place] [facility] [address] [id number] [place] [address]- 2952 May, [facility] [place] [facility] [address] [id number] [place] [address]- 4868 May, [facility] [place] [facility] [address] [id number] [place] [address]- 3029 May, [facility] [place] [facility] [address] [id number] [place] [address]- 3303 May, [facility] [place] [facility] [address] [id number] [place] [address]- 5315 Apr, [facility] [place] [facility] [address] [id number] [place] [address]- 1655 Apr, [facility] [place] [facility] [address] [id number] [place] [address]- 7342 March, [facility] [place] [facility] [address] [id number] [place] [address]- 9268 March, [facility] [place] [facility] [address] [id number] [place] [address]- 7593 March, [facility] [place] [facility] [address] [id number] [place] [address]- 4196 March, [facility] [place] [facility] [address] [id number] [place] [address]- 3234 March, [facility] [place] [facility] [address] [id number] [place] [address]- 4740 March, [facility] [place] [facility] [address] [id number] [place] [address]- 9188 Feb, [facility] [place] [facility] [address] [id number] [place] [address]- 4372 Feb, [facility] [place] [facility] [address] [id number] [place] [address]- 5478 Dec, [facility] [place] [facility] [address] [id number] [place] Dec, [facility] [place] [facility] [address] [id number] [place] [address]- 5845 Nov, [facility] [place] [facility] [address] [id number] [place] [address]- 3223 Nov, [facility] [place] [facility] [address] [id number] [place] [address]- 0266 Sep, [facility] [place] [facility] [address] [id number] [place] [address]- 3671 Sep, [facility] [place] [facility] [address] [id number] [place] [address]- 5257 Sep, [facility] [place] [facility] [address] [id number] [place] [address]- 0864 Sep, [facility] [place] [facility] [address] [id number] [place] [address]- 9185 Sep, [facility] [place] [facility] [address] [id number] [place] [address]- 8181 Sep, [facility] [place] [facility] [address] [id number] [place] [address]- 2873 Sep, [facility] [place] [facility] [address] [id number] [place] [address]- 1697 Aug, [facility] [place] [facility] [address] [id number] [place] [address]- 1808 Aug, [facility] [place] [facility] [address] [id number] [place] [address]- 2635 Aug, [facility] [place] [facility] [address] [id number] [place] [address]- 4739 Aug, [facility] [place] [facility] [address] [id number] [place] [address]- 3690 Aug, [facility] [place] [facility] [address] [id number] [place] [address]- 9969 Aug, [facility] [place] [facility] [address] [id number] [place] [address]- 3871 Jul, [facility] [place] [facility] [address] [id number] [place] [address]- 3431 Jul, [facility] [place] [facility] [address] [id number] [place] [address]- 8028 Jul, [facility] [place] [facility] [address] [id number] [place] [address]- 1130 Jul, [facility] [place] [facility] [address] [id number] [place] [address]- 9324 Jun, [facility] [place] [facility] [address] [id number] [place] [address]- 6009 Jun, [facility] [place] [facility] [address] [id number] [place] [address]- 0915 Jun, [facility] [place] [facility] [address] [id number] [place] [address]- 0733 Jun, [facility] [place] [facility] [address] [id number], [place] [address]- 1629 Jun, [facility] [place] [facility] [address] [id number], [place] [address]- 1010 Jun, [facility] [place] [facility] [address] [id number] [place] [address]- 3067 Jun, [facility] [place] [facility] [address] [id number], [place] [address]- 0743 May, [facility] [place] [facility] [address] [id number] [place] [address]- 7598 May, [facility] [place] [facility] [address] [id number] [place] [address]- 2487 16 May, 2012 [facility] [place] [facility] [address] [id number] [place] [address]- 6867 15 May, 2013 [facility] [place] [facility] [address] [id number] [place] [address]- 6991 13 May, 2013 [facility] [place] [facility] [address] [id number] [place] [address]- 5167 05 May, 2013 [facility] [place] [facility] [address] [id number] [place] [address]- 1653 03 May, 2013 [facility] [place] [facility] [address] [id number] [place] [address]- 9694 28 Apr, 2013 [facility] [place] [facility] [address] [id number] [place] [address]- 2267 27 Apr, 2013 [facility] [place] [facility] [address] [id number] [place] [address]- 2484 27 Apr, 2013 [facility] [place] [facility] [address] [id number] [place] [address]- 9742 26 Apr, 2013 [facility] [place] [facility] [address] [id number] [place] [address]- 3001 20 Apr, 2013 [facility] [place] [facility] [address] [id number] [place] [address]- 8702 18 Apr, 2013 [facility] [place] [facility] [address] [id number] [place] [address]- 6967 18 Apr, 2013 [facility] [place] [facility] [address] [id number] [place] [address]- 3450 18 Apr, 2013 [facility] [place] [facility] [address] [id number] [place] [address]- 4251 17 Apr, 2013 [facility] [place] [facility] [address] [id number] [place] [address]- 9197 14 Apr, 2013 [facility] [place] [facility] [address] [id number] [place] [address]- 0287 14 Apr, 2013 [facility] [place] [facility] [address] [id number] [place] [address]- 7160 Apr, [facility] [address] [id number] [place] [address]- 3140 Apr, [facility] [address] [id number] [place] [address]- 8309 Apr, [facility] [address] [id number] [place] [address]- 2690 Apr, [facility] [address] [id number] [place] [address]- 0050 Apr, [facility] [address] [id number] [place] [address]- 6602 Apr, [facility] [address] [id number] [place] [address]- 8013 Apr, [facility] [address] [id number] [place] [address]- 5435 Apr, [facility] [address] [id number] [place] [address]- 8134 March, [facility] [address] [id number] [place] [address]- 0831 March, [facility] [address] [id number] [place] [address]- 6520 March, [facility] [address] [id number] [place] [address]- 1218 March, [facility] [address] [id number] [place] [address]- 7220 March, [facility] [place] [facility] [address] [id number] [place] [address]- 6839 March, [facility] [address] [id number] [place] [address]- 4696 March, [facility] [address] [id number] [place] [address]- 2546 12 Feb, 2013 [facility] [address] [id number] [place] [address]- 7250 03 Feb, 2013 [facility] [place] [facility] [address] [id number] [place] [address]- 0623 27 Jan, 2013 [facility] [place] [facility] [address] [id number] [place] [address]- 5255 18 Jan, 2013 [facility] [place] [facility] [address] [id number] [place] [address]- 8526 15 Jan, 2013 [facility] [place] [facility] [address] [id number] [place] [address]- 3618 14 Jan, 2013 [facility] [place] [facility] [address] [id number] [place] [address]- 1008 13 Jan, 2013 [facility] [place] [facility] [address] [id number] [place] [address]- 3727 12 Jan, 2013 [facility] [place] [facility] [address] [id number] [place] [address]- 8505 11 Jan, 2013 [facility] [place] [facility] [address] [id number] [place] [address]- 4755 09 Jan, 2013 [facility] [place] [facility] [address] [id number] [place] [address]- 4641 08 Jan, 2013 [facility] [place] [facility] [address] [id number] [place] [address]- 0392 07 Jan, 2013 [facility] [place] [facility] [address] [id number] [place] [address]- 7326 06 Jan, 2013 [facility] [place] [facility] [address] [id number] [place] [address]- 8928 17 Nov, 2012 [facility] [place] [facility] [address] [id number] [place] [address]- 0433 Oct, [facility] [place] [facility] [address] [id number] [place] [address]- 4619 Oct, [facility] [place] [facility] [address] [id number] [place] [address]- 0899 Oct, [facility] [place] [facility] [address] [id number] [place] [address]- 5397 Oct, [facility] [place] [facility] [address] [id number] [place] [address]- 4285 Sep, [facility] [place] [facility] [address] [id number] [place] [address]- 8010 Sep, [facility] [place] [facility] [address] [id number] [place] [address]- 2479 Sep, [facility] [place] [facility] [address] [id number] [place] [address]- 9498 Sep, [facility] [place] [facility] [address] [id number] [place] [address]- 5303 Sep, [facility] [place] [facility] [address] [id number] [place] [address]- 8078 Sep, [facility] [place] [facility] [address] [id number] [place] [address]- 2668 Sep, [facility] [place] [facility] [address] [id number] [place] [address]- 9726 Sep, [facility] [place] [facility] [address] [facility] [id number] [place] [address]- 8342 Sep, [facility] [place] [facility] [address] [id number] [place] [address]- 4539 Sep, [facility] [place] [facility] [address] [id number] [place] [address]- 8425 Sep, [facility] [place] [facility] [address] [id number] [place] [address]- 6331 Aug, [facility] [place] [facility] [address] [id number] [place] [address]- 3592 Aug, [facility] [place] [facility] [address] [id number] [place] [address]- 4142 Aug, [facility] [place] [facility] [address] [id number] [place] [address]- 1904 28 Jul, 2012 [facility] [place] [facility] [address] [id number] [place] [address]- 0232 25 Jul, 2012 [facility] [place] [facility] [address] [id number] [place] [address]- 8274 19 Jul, 2012 [facility] [place] [facility] [address] [id number] [place] [address]- 5121 17 Jul, 2012 [facility] [place] [facility] [address] [id number] [place] [address]- 1840 20 Jun, 2012 [facility] [place] [facility] [address] [id number] [place] [address]- 1820 16 Jun, 2012 [facility] [place] [facility] [address] [id number] [place] [address]- 7757 15 Jun, 2012 [facility] [place] [facility] [address] [id number] [place] [address]- 4536 15 Jun, 2012 [facility] [place] [facility] [address] [id number] [place] [address]- 8894 13 Jun, 2012 [facility] [place] [facility] [address] [id number] [place] [address]- 1196 March, [facility] [place] [facility] [address] [id number] [place] [address]- 7147 04 Feb, 2012 [facility] [place] [facility] [address] [id number], [place] [address]- 6752 28 Jan, 2012 [facility] [place] [facility] [address] [id number] [place] [address]- 3096 27 Jan, 2012 [facility] [place] [facility] [address] [id number] [place] [address] 22 Jan, 2012 [facility] [place] [facility] [address] [id number] [place] [address] 14 Jan, 2012 [facility] [place] [facility] [address] [id number], [place] [address] 14 Jan, 2012 [facility] [address] [id number] [place] [address] 14 Jan, 2012 [facility] [place] [facility] [address] [id number] [place] [address] 28 Dec, 2011 [facility] [place] [facility] [address] [id number] [place] [address] 27 Dec, 2011 [facility] [place] [facility] [address] [id number] [place] [address] 23 Dec, 2011 [facility] [place] [facility] [address] [id number] [place] [address] 21 Dec, 2011 [facility] [place] [facility] [address] [id number] [place] [address] 20 Dec, 2011 [facility] [place] [facility] [address] [id number] [place] [address] 19 Dec, 2011 [facility] [place] [facility] [address] [facility] [id number] [place] [address]10 17 Dec, 2011 [facility] [place] [facility] [id number] [place] [address] 16 Dec, 2011 [facility] [address] [id number] [place] [address] 31 Nov, 2011 [facility] [place] [facility] [address] [facility] [id number] [place] [address] 13 Oct, 2011 [facility] [place] [facility] [address] [id number] [place] [address]44 18 Sep, 2011 [facility] [place] [facility] [address] [id number] [place] [address] 1619 18 Sep, 2011 [facility] [place] [facility] [address] [facility] [id number] [place] [address]396 17 Sep, 2011 [facility] [place] [facility] [address] [facility] [id number] [place] [address] Sep, [facility] [address] [facility] [id number] [place] [address] Sep, [facility] [address] [facility] [id number], [place] [address] Sep, [facility] [address] [facility] [id number], [place] [address] Jan, [facility] [address] [facility] [id number], [place] [address] Apr, IMMUNIZATIONS No Known Immunizations SOCIAL HISTORY Never Assessed REASON FOR VISIT EMR-[facility] PLAN OF CARE VITAL SIGNS MEDICATIONS [...] History Left ovary removed 12/2017 Hospitalization History [place] Ad[facility] x4 2009 most recent admission Hospitalization History [facility]; overdose 2010 Hospitalization History child 11/29/2016
--- OUTSIDE RECORDS SUMMARY | 2019-03-04 16:40 | XMS REPORT ---
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 Name Role Phone Migration, Doctor Unavailable Unavailable PROBLEMS Type Condition ICD9-CM Code ZLW02-KE Code Onset Dates Condition Status SNOMED Code Problem Generalized anxiety disorder F41.1 Active 92045979 Problem Bipolar disorder, current episode mixed, moderate F31.62 Active 023572841 Problem Acute non intractable tension-type headache G44.209 Active 862902719 Problem Constipation K59.00 Active 66796313 Problem Post traumatic stress disorder F43.10 Active 34967171 Problem Borderline personality disorder F60.3 Active 63020571 Problem Endometriosis N80.9 Active 142930752 Problem Acute right-sided low back pain with right-sided sciatica M54.41 Active [id number] ALLERGIES No Information ENCOUNTERS Encounter Location Date Diagnosis [facility] [id number] [place] [address] 67919 -5690 Jan, Cough R05 and Viral upper respiratory tract infection J06.9 [place] [id number] [place] [address] 31764- 9787 Jan, Bipolar disorder, current episode mixed, moderate F31.62 [place] [id number] [place] [address] 08105- 9510 Dec, Bipolar disorder, current episode mixed, moderate F31.62 [place] [id number] [place] [address] 86998- 2399 Nov, Bipolar disorder, current episode mixed, moderate F31.62 [facility] [id number] [place] [address] 84547 -7593 Oct, Sore throat J02.9 [facility] [id number] [place] [address] 05219 -1877 Oct, Abdominal pain R10.9 ; Low back pain M54.5 ; Left shoulder pain M25.512 and Constipation K59.00 [place] [id number] [place] [address] 01974- 4454 Oct, Bipolar disorder, current episode mixed, moderate F31.62 ; Post traumatic stress disorder F43.10 and Borderline personality disorder F60.3 [place] [id number] [place] [address] 74438- 9881 Sep, Bipolar disorder, current episode mixed, moderate F31.62 [place] [id number] [place] Aug, Bipolar disorder, current episode mixed, moderate F31.62 [place] [id number] [place] Jul, Thrombophlebitis I80.9 and Pelvic pain R10.2 [place] [address] 36107- 7429 05 Jul, 2018 Bipolar disorder, current episode mixed, moderate F31.62 ; Post traumatic stress disorder F43.10 and Borderline personality disorder F60.3 [place] [id number] [place] [address] 91689- 6916 Jun, Bipolar disorder, current episode mixed, moderate F31.62 [place] [id number] [place] [address] 56998- 3177 May, Palpitations R00.2 [place] [id number] [place] [address] 96303- 4196 May, Palpitations R00.2 [place] [id number] [place] [address] 16628- 9012 May, Palpitations R00.2 and Frequent bowel movements R19.4 [place] [id number] [place] [address] 16672- 1836 May, Bipolar disorder, current episode mixed, moderate F31.62 ; Post traumatic stress disorder F43.10 and Borderline personality disorder F60.3 [facility] [id number] [id number] 15 Apr, 2018 Dental examination Z01.20 [facility] [address] [address] 15 Apr, 2018 [facility] [id number] [place] [address] 75710- 2445 15 Apr, 2018 Dental examination Z01.20 [facility] [id number] [place] [address] 66955 -4320 15 Apr, 2018 Tooth pain K08.89 [facility] [id number] [place] [address] 59006- 7357 06 Apr, 2018 Bipolar disorder, current episode mixed, moderate F31.62 ; Post traumatic stress disorder F43.10 and Borderline personality disorder F60.3 [facility] [id number] [place] [address] 85170 -3874 18 Mar, 2018 Abdominal pain R10.9 ; UTI symptoms R39.9 and Other microscopic hematuria R31.29 [facility] [id number] [place] [address] 09618- 9687 March, [facility] [id number] [place] [address] 96514- 8821 March, Bipolar disorder, current episode mixed, moderate F31.62 ; Post traumatic stress disorder F43.10 and Borderline personality disorder F60.3 [facility] [id number] [place] [address] 92155- 8402 30 Feb, 2018 Encounter for immunization Z23 [facility] [id number] [place] [address] 34761- 2514 16 Feb, 2018 Bipolar disorder, current episode mixed, moderate F31.62 ; Post traumatic stress disorder F43.10 and Borderline personality disorder F60.3 [facility] [address] [place] [address] 13099- 1802 Feb, Bipolar disorder, current episode mixed, moderate F31.62 ; Post traumatic stress disorder F43.10 ; Borderline personality disorder F60.3 and 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 Z79.899 [place] [id number] 53849- 7391 Jan, Encounter for immunization Z23 [facility] [id number] [place] [address] 84559- 7680 Jan, [facility] [address] 68696- 7132 Jan, Bipolar disorder, current episode mixed, moderate F31.62 [facility] [address] 79504 -5571 Jan, Lumbar back pain M54.5 [place] [address] 04522- 3383 Dec, Low back pain M54.5 [place] [address] 04535- 2394 Dec, Bipolar disorder, current episode mixed, moderate F31.62 [place] [address] 20166- 2768 Dec, Generalized anxiety disorder F41.1 and Bipolar disorder, current episode mixed, moderate F31.62 [facility] [id number] [place] [address] 93217 -3631 Nov, Acute non intractable tension-type headache G44.209 [facility] [id number] [place] [address] 22671- 8995 Nov, Bipolar disorder, current episode mixed, moderate F31.62 ; Post traumatic stress disorder F43.10 and Borderline personality disorder F60.3 [place] [id number] [place] [address] 94619- 7898 Nov, Bipolar disorder, current episode mixed, moderate F31.62 [facility] [address] 89294 -1171 Nov, Abdominal pain R10.9 ; History of PCOS Z87.42 ; History of endometriosis Z87.42 and Pelvic pain R10.2 [place] [id number] [place] [address] 79069- 5288 Nov, [facility] [id number] [place] [address] 29842 -2710 Oct, History of PCOS Z87.42 ; History of endometriosis Z87.42 and Pain R52 [place] [id number] [place] [address] 57586- 5307 Oct, Bipolar disorder, current episode mixed, moderate F31.62 ; Post traumatic stress disorder F43.10 and Borderline personality disorder F60.3 [place] [id number] [place] [address] 88718- 3212 Oct, Bipolar disorder, current episode mixed, moderate F31.62 [place] [id number] [place] [address] 76168- 5466 Sep, Bipolar disorder, current episode mixed, moderate F31.62 ; Post traumatic stress disorder F43.10 ; Borderline personality disorder F60.3 and 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.899 [place] [address] [place] [address] 76818- 6361 Sep, Bipolar disorder, current episode mixed, moderate F31.62 [facility] [id number] [place] [address] 50596 -8768 Sep, Endometriosis N80.9 and Acute right-sided low back pain with right-sided sciatica M54.41 [place] [id number] [place] [address] 80309- 7320 Aug, [place] [id number] [place] [address] 45974- 0359 Aug, Bipolar disorder, current episode mixed, moderate F31.62 ; Post traumatic stress disorder F43.10 and Borderline personality disorder F60.3 [place] [id number] [address] 4512 11 Aug, 2017 Bipolar disorder, current episode mixed, moderate F31.62 ; Post traumatic stress disorder F43.10 and Borderline personality disorder F60.3 [facility] [address] [place] [address] 57708- 4003 13 Jul, 2017 Bipolar disorder, current episode mixed, moderate F31.62 ; Post traumatic stress disorder F43.10 and Borderline personality disorder F60.3 [facility] [address] [place] [address] 31954 -5779 11 Jul, 2017 Pharyngitis, unspecified etiology J02.9 and Streptococcal pharyngitis J02.0 [facility] [address] [place] [address] 88494- 4077 16 Jun, 2017 Bipolar disorder, current episode mixed, moderate F31.62 ; Post traumatic stress disorder F43.10 and Borderline personality disorder F60.3 [place] [id number] [place] [address] 14752- 4632 May, [facility] [id number] [place] [address] 78497- 7499 May, [facility] [id number] [place] [address] 96938- 4645 May, Bipolar disorder, current episode mixed, moderate F31.62 and Generalized anxiety disorder F41.1 [facility] [id number] [place] [address] 54589- 9413 March, Bipolar disorder, current episode mixed, moderate F31.62 and Generalized anxiety disorder F41.1 [place] [id number] [place] [address] 07603- 9047 March, Pelvic pain R10.2 [facility] [id number] [place] [address] 59955- 9452 March, [facility] [id number] [place] [address] 45551- 1206 Feb, Bipolar disorder, current episode mixed, moderate F31.62 and Generalized anxiety disorder F41.1 [facility] [id number] [place] 7[address] Jan, [facility] [id number] [place] 1644 Jan, Bipolar disorder, current episode mixed, moderate F31.62 [facility] [address] 555294- 1028 Jan, Bipolar disorder, current episode mixed, moderate F31.62 [facility] [id number] [place] [address] 3531 Jan, Bilateral low back pain without sciatica M54.5 [facility] [id number] [place] [address] [id number] Jan, Dental caries K02.9 and Dental examination Z01.20 [facility] [address] [id number] Jan, Encounter for dental examination and cleaning without abnormal findings Z01.20 [facility] [id number] [place] [address]- 4577 Jan, Bipolar disorder, current episode mixed, moderate F31.62 and Generalized anxiety disorder F41.1 [facility] [id number] [place] [address] 37830- 0179 Dec, [facility] [id number] [place] [address]- 4011 Dec, Bipolar disorder, current episode mixed, moderate F31.62 and Generalized anxiety disorder F41.1 [facility] [id number] [place] 6403 Dec, Other fatigue R53.83 and Orthostatic hypotension I95.1 [facility] [id number] [place] [address] [id number] Nov, Dental examination Z01.20 [facility] [id number] [address] 02 Nov, 2016 Bronchitis J40 [facility] [id number] [place] [address] 87505- 4895 14 Oct, 2016 Generalized anxiety disorder F41.1 [facility] [id number] [place] [address] 23315- 5912 14 Sep, 2016 Bipolar disorder, current episode mixed, moderate F31.62 and Generalized anxiety disorder F41.1 [facility] [id number] [place] [address] 39279- 4771 02 Sep, 2016 Bipolar disorder, current episode mixed, moderate F31.62 and Generalized anxiety disorder F41.1 [facility] [id number] [place] [address] 35545 -3181 08 Jul, 2016 Upper respiratory tract infection, unspecified type J06.9 [place] [id number] [place] [address] 88858- 2305 Jun, Bipolar disorder, current episode mixed, moderate F31.62 and Generalized anxiety disorder F41.1 [place] [id number] [place] [address] 99237- 6228 Apr, [place] [id number] [place] [address] 15671- 2234 Apr, Encounter for test, result positive Z32.01 [place] [id number] [place] [address] 61079- 4159 March, [place] [id number] [place] [address] 19130- 7792 March, Bipolar disorder, current episode mixed, moderate F31.62 and Generalized anxiety disorder F41.1 [place] [id number] [place] [address] 70364- 8271 March, Bipolar disorder, current episode mixed, moderate F31.62 and Generalized anxiety disorder F41.1 [place] [id number] [place] [address] 35550- 4224 March, [facility] [address] [address]- 6138 March, [facility] [id number] [place] [address] 47984- 6239 Feb, [facility] [id number] [place] [address] 24846- 3856 Feb, [facility] [id number] [place] [address] 54564- 1749 Feb, Bipolar disorder, current episode mixed, moderate F31.62 and Generalized anxiety disorder F41.1 [facility] [id number] [place] [address] 69738- 2009 Jan, Abdominal pain R10.9 [facility] [id number] [place] [address] 59933- 4489 Jan, [facility] [id number] [place] [address] 55228- 6518 Dec, Dental examination Z01.20 [facility] [id number] [place] [address] 00404- 8908 Dec, Dental examination Z01.20 and Dental caries K02.9 [facility] [id number] [place] [address] 85308- 9209 Dec, Bipolar disorder, current episode mixed, moderate F31.62 and Generalized anxiety disorder F41.1 [facility] [address] [place] [address] 87269- 9193 Dec, [facility] [id number] [place] [address] 45315- 6852 Nov, Bipolar disorder, current episode mixed, moderate F31.62 ; Generalized anxiety disorder F41.1 and Seizure-like activity R56.9 [facility] [address] [address]- 0253 Oct, [facility] [id number] [place] [address] 70724- 0155 Oct, Bipolar disorder, current episode mixed, moderate F31.[address] 13902- 7606 14 Oct, 2015 Well woman exam Z01.419 [...] Tobacco use Z72.0 and Hot flashes N95.[address] 81450- 4204 09 Oct, 2015 Seizure-like activity R56.9 and Irregular periods N92.[address] 35892- 0902 07 Oct, 2015 Bipolar disorder, current episode mixed, moderate F31.62 ; Generalized anxiety disorder F41.1 and Underweight R63.6 [place] [address] 33530- 0903 Oct, [address] 45592- 1344 Oct, Generalized anxiety disorder F41.1 and Unspecified mood [ affective] disorder F39 [facility] [address] [place] [address] 89884 -6154 Oct, Back pain M54.9 and Anxiety F41.9 [place] [address] 42814- 7377 Oct, [facility] [address] 62976 -3990 Sep, Arm pain, left M79.602 [facility] [id number] [place] [address] 07003- 8935 Sep, [facility] [id number] [place] [address] [id number] Sep, Dental examination Z01.20 and Dental caries K02.9 [facility] [id number] [place] [address] 35108- 1944 Sep, Generalized anxiety disorder F41.1 and Unspecified episodic mood disorder F39 [facility] [id number] [place] [address] 07137- 0344 Sep, Bilateral low back pain without sciatica M54.5 and Seizure- like activity R56.9 [facility] [id number] [place] [address] 75689- 5752 Aug, [facility] [id number] [place] [address] 99692- 1860 Aug, [facility] [id number] [place] [address] 97881- 5505 Aug, [facility] [id number] [place] [address] 77650- 1127 Aug, Visual changes H53.9 and Bilateral low back pain without sciatica M54.5 [facility] [id number] [place] [address] 54272- 8680 Jul, [facility] [id number] [place] [address] 30289- 5892 Jun, Bipolar I disorder, most recent episode (or current) mixed, moderate 296.62 ; Generalized anxiety disorder 300.02 and High risk medication use V58.69 [facility] [id number] [place] [address] 69443- 5499 Jun, [facility] [id number] [place] [address] 58160- 4603 May, [facility] [id number] [place] [address] 08067- 3948 May, Bipolar I disorder, most recent episode (or current) mixed, moderate 296.62 and Generalized anxiety disorder 300.02 [facility] [address] [id number] May, Dental examination V72.2 [facility] [address] [address]- 7580 March, Bipolar I disorder, most recent episode (or current) mixed, moderate 296.62 and Generalized anxiety disorder 300.02 [facility] [address] [address] March, [facility] [id number] [place] [address] 44987- 4856 March, [facility] [id number] [place] [address] 91441- 8671 March, Underweight 783.22 ; Hand pain, right 729.5 and Reflux gastritis 535.40 [facility] [address] [address]- 7957 Feb, [facility] [id number] [place] [address] 43111- 1249 Feb, [facility] [address] [address]- 4551 18 Jan, 2015 [facility] [address] [address]- 4062 18 Jan, 2015 [facility] [address] [address]- 3709 16 Jan, 2015 [facility] [id number] [place] [address] 467515- 2084 16 Jan, 2015 [facility] [address] [address]- 9011 Jan, [facility] [id number] [place] [address] 23889- 1425 Jan, [facility] [place] [facility] [address] [id number] [place] [address]- 8305 05 Jan, 2015 [facility] [place] [facility] [address] [id number] [place] [address]- 9201 05 Jan, 2014 [facility] [place] [facility] [address] [id number] [place] [address]- 7710 04 Jan, 2015 [facility] [place] [facility] [address] [id number] [place] [address]- 6043 04 Jan, 2015 [facility] [place] [facility] [address] [id number] [place] [address]- 6074 02 Jan, 2015 [facility] [place] [facility] [address] [id number] [place] [address] Jan, [facility] [place] [facility] [address] [facility] [id number] [place] [address] 20 Dec, 2014 [facility] [place] [facility] [address] [facility] [id number] [place] [address] 20 Dec, 2014 [facility] [place] [facility] [address] [id number] [place] [address] 19 Dec, 2014 [facility] [place] [facility] [address] [facility] [id number] [place] [address] 19 Dec, 2014 [facility] [place] [facility] [address] [facility] [id number] [place] [address] 18 Dec, 2014 [facility] [place] [facility] [address] [id number] [place] [address] 17 Dec, 2014 [facility] [place] [facility] [address] [id number] [place] [address] 17 Dec, 2014 [facility] [place] [facility] [address] [facility] [id number] [place] [address] 16 Dec, 2014 [facility] [place] [facility] [address] [facility] [id number] [place] [address] 16 Dec, 2014 [facility] [place] [facility] [address] [id number] [place] [address] Dec, 2014 [facility] [place] [facility] [address] [id number] [place] [address] Dec, 2014 [facility] [place] [facility] [address] [id number] [place] [address] Dec, 2014 [facility] [place] [facility] [address] [id number] [place] [address] Dec, 2014 [facility] [place] [facility] [address] [address] [id number] [place] [address] Dec, 2014 [facility] [place] [facility] [address] [id number] [place] [address] Dec, 2014 [facility] [place] [facility] [address] [facility] [id number] [place] [address] Dec, 2014 [facility] [place] [facility] [address] [facility] [id number] [place] [address]267 Dec, 2014 [facility] [place] [facility] [address] [facility] [id number] [place] [address] 1254 Dec, 2014 [facility] [place] [facility] [address] [facility] [id number] [place] [address] Dec, 2014 [facility] [place] [facility] [address] [facility] [id number] [place] [address] 77[address] Nov, [facility] [place] [facility] [address] [facility] [id number] [address] Nov, [facility] [place] [facility] [address] [id number] [place] [address] Nov, [facility] [place] [facility] [address] [facility] [id number] [place] [address] 1286 Nov, [facility] [place] [facility] [address] [facility] [id number] [place] [address] Nov, [facility] [place] [facility] [address] [facility] [id number] [place] [address] Nov, [facility] [place] [facility] [address] [id number] [place] [id number] Nov, [facility] [place] [facility] [address] [id number] [place] [address]- 2836 Nov, [facility] [place] [facility] [address] [id number] [place] [address]- 6946 Nov, [facility] [place] [facility] [address] [id number] [place] [id number] Nov, [facility] [place] [facility] [address] [id number] [place] [address] Nov, [facility] [place] [facility] [address] [id number] [place] [address]- 9982 Nov, [facility] [place] [facility] [address] [id number] [place] [address]- 6311 Oct, [facility] [place] [facility] [address] [id number] [place] [address] 7511 Oct, [facility] [place] [facility] [address] [id number] [place] [address] Oct, [facility] [place] [facility] [address] [id number] [place] [address]- 7678 Oct, [facility] [place] [facility] [address] [id number] [place] [address]- 4230 Oct, [facility] [place] [facility] [address] [id number] [address] 8766 29 Oct, 2014 [facility] [place] [facility] [address] [id number] [place] [address] 9607 Oct, [facility] [place] [facility] [address] [id number] [place] [address] 0278 Oct, [facility] [place] [facility] [address] [id number] [place] [address]- 0970 17 Oct, 2014 [facility] [place] [facility] [address] [id number] [place] [address]- 0145 Oct, [facility] [place] [facility] [address] [id number] [place] [address]- 5627 Oct, [facility] [place] [facility] [address] [id number] [place] [address]- 1856 Oct, [facility] [place] [facility] [address] [id number] [place] [address]- 9402 Sep, [facility] [place] [facility] [address] [id number] [place] [address]- 9226 Sep, [facility] [place] [facility] [address] [id number] [place] [address]- 8635 Sep, [facility] [place] [facility] [address] [id number] [place] [address] 2109 Sep, [facility] [place] [facility] [address] [id number] [place] [address]- 7402 Sep, [facility] [place] [facility] [address] [id number] [place] [address]- 8020 Sep, [facility] [place] [facility] [address] [id number] [place] [address]- 4199 Sep, [facility] [place] [facility] [address] [facility] [id number] [place] [address]- 3475 Sep, [facility] [place] [facility] [address] [id number] [place] [address]- 2530 Aug, [facility] [place] [facility] [address] [id number] [place] [address]- 5245 Aug, [facility] [place] [facility] [address] [id number] [place] [address]- 3555 Aug, [facility] [place] [facility] [address] [id number] [place] [address]- 3283 Aug, [facility] [place] [facility] [address] [id number] [place] [address]- 1423 Aug, [facility] [place] [facility] [address] [id number] [place] [address]- 5199 Aug, [facility] [place] [facility] [address] [id number] [place] [address]- 5241 Aug, [facility] [place] [facility] [address] [id number] [place] [address] Aug, [facility] [place] [facility] [address] [id number] [place] [address]- 4092 Aug, [facility] [place] [facility] [address] [id number] [place] [address]- 7814 Aug, [facility] [place] [facility] [address] [id number] [place] [address]- 8206 Aug, [facility] [place] [facility] [address] [id number] [place] [address]- 5119 Aug, [facility] [place] [facility] [address] [id number] [place] [address]- 9038 Aug, [facility] [place] [facility] [address] [id number] [place] [address]- 8193 Jul, [facility] [place] [facility] [address] [id number] [place] [address]- 2965 Jul, [facility] [place] [facility] [address] [id number] [place] [address]- 0577 Jul, [facility] [place] [facility] [address] [id number] [place] [address]- 7094 Jul, [facility] [place] [facility] [address] [id number] [place] [address]- 5685 Jun, [facility] [place] [facility] [address] [id number] [place] [address]- 0636 Jun, [facility] [place] [facility] [address] [id number] [place] [address]- 1829 Jun, [facility] [place] [facility] [address] [id number] [place] [address]- 1484 Jun, [facility] [place] [facility] [address] [id number] [place] [address]- 7048 Jun, [facility] [place] [facility] [address] [id number] [place] [address]- 4222 Jun, [facility] [place] [facility] [address] [id number] [place] [address]- 1239 May, [facility] [place] [facility] [address] [id number] [place] [address]- 2341 May, [facility] [place] [facility] [address] [id number] [place] [address]- 6270 May, [facility] [place] [facility] [address] [id number] [place] [address]- 0083 May, [facility] [place] [facility] [address] [id number] [place] [address]- 9065 Apr, [facility] [place] [facility] [address] [id number] [place] [address]- 3195 Apr, [facility] [place] [facility] [address] [id number] [place] [address]- 0439 March, [facility] [place] [facility] [address] [id number] [place] [address]- 3059 March, [facility] [place] [facility] [address] [id number] [place] [address]- 6256 March, [facility] [place] [facility] [address] [id number] [place] [address]- 7514 March, [facility] [place] [facility] [address] [id number] [place] [address]- 2002 March, [facility] [place] [facility] [address] [id number] [place] [address]- 2829 March, [facility] [place] [facility] [address] [id number] [place] [address]- 1795 Feb, [facility] [place] [facility] [address] [id number] [place] [address]- 6654 Feb, [facility] [place] [facility] [address] [id number] [place] [address]- 2829 Dec, [facility] [place] [facility] [address] [id number] [place] [address] Dec, [facility] [place] [facility] [address] [id number] [place] [address]- 7227 Nov, [facility] [place] [facility] [address] [id number] [place] [address]- 7624 Nov, [facility] [place] [facility] [address] [id number] [place] [address]- 8025 Sep, [facility] [place] [facility] [address] [id number] [place] [address]- 4014 Sep, [facility] [place] [facility] [address] [id number] [place] [address]- 9989 Sep, [facility] [place] [facility] [address] [id number] [place] [address]- 1562 Sep, [facility] [place] [facility] [address] [id number] [place] [address]- 4447 Sep, [facility] [place] [facility] [address] [id number] [place] [address]- 0631 Sep, [facility] [place] [facility] [address] [id number] [place] [address]- 8602 Sep, [facility] [place] [facility] [address] [id number] [place] [address]- 6395 Aug, [facility] [place] [facility] [address] [id number] [place] [address]- 7004 Aug, [facility] [place] [facility] [address] [id number] [place] [address]- 9212 Aug, [facility] [place] [facility] [address] [id number] [place] [address]- 9696 Aug, [facility] [place] [facility] [address] [id number] [place] [address]- 7960 Aug, [facility] [place] [facility] [address] [id number] [place] [address]- 1957 Aug, [facility] [place] [facility] [address] [id number] [place] [address]- 0768 Jul, [facility] [place] [facility] [address] [id number] [place] [address]- 1916 Jul, [facility] [place] [facility] [address] [id number] [place] [address]- 9376 Jul, [facility] [place] [facility] [address] [id number] [place] [address]- 2436 Jul, [facility] [place] [facility] [address] [id number] [place] [address]- 9199 Jun, [facility] [place] [facility] [address] [id number] [place] [address]- 8486 Jun, [facility] [place] [facility] [address] [id number] [place] [address]- 9969 Jun, [facility] [place] [facility] [address] [id number] [place] [address]- 2888 Jun, [facility] [place] [facility] [address] [id number] [place] [address]- 1319 Jun, [facility] [place] [facility] [address] [id number] [place] [address]- 7354 Jun, [facility] [place] [facility] [address] [id number] [place] [address]- 9222 Jun, [facility] [place] [facility] [address] [id number] [place] [address]- 7316 May, [facility] [place] [facility] [address] [id number] [place] [address]- 9251 May, [facility] [place] [facility] [address] [id number] [place] [address]- 9301 16 May, 2012 [facility] [place] [facility] [address] [id number] [place] [address]- 3397 15 May, 2013 [facility] [place] [facility] [address] [id number] [place] [address]- 4900 13 May, 2013 [facility] [place] [facility] [address] [id number] [place] [address]- 3937 05 May, 2013 [facility] [place] [facility] [address] [id number] [place] [address]- 7284 03 May, 2013 [facility] [place] [facility] [address] [id number] [place] [address]- 7700 28 Apr, 2013 [facility] [place] [facility] [address] [id number] [place] [address]- 3657 27 Apr, 2013 [facility] [place] [facility] [address] [id number] [place] [address]- 5222 27 Apr, 2013 [facility] [place] [facility] [address] [id number] [place] [address]- 9493 26 Apr, 2013 [facility] [place] [facility] [address] [id number] [place] [address]- 1464 20 Apr, 2013 [facility] [place] [facility] [address] [id number] [place] [address]- 2279 18 Apr, 2013 [facility] [place] [facility] [address] [id number] [place] [address]- 1414 18 Apr, 2013 [facility] [place] [facility] [address] [id number] [place] [address]- 8790 18 Apr, 2013 [facility] [place] [facility] [address] [id number] [place] [address]- 1486 17 Apr, 2013 [facility] [place] [facility] [address] [id number] [place] [address]- 4699 14 Apr, 2013 [facility] [place] [facility] [address] [id number] [place] [address]- 8019 14 Apr, 2013 [facility] [place] [facility] [address] [id number] [place] [address]- 2558 Apr, [facility] [address] [id number] [place] [address]- 4051 Apr, [facility] [address] [id number] [place] [address]- 7608 Apr, [facility] [address] [id number] [place] [address]- 5931 Apr, [facility] [address] [id number] [place] [address]- 5132 Apr, [facility] [address] [id number] [place] [address]- 3904 Apr, [facility] [address] [id number] [place] [address]- 7282 Apr, [facility] [address] [id number] [place] [address]- 5598 Apr, [facility] [address] [id number] [place] [address]- 9711 March, [facility] [address] [id number] [place] [address]- 5487 March, [facility] [address] [id number] [place] [address]- 1271 March, [facility] [address] [id number] [place] [address]- 8187 March, [facility] [address] [id number] [place] [address]- 6670 March, [facility] [place] [facility] [address] [id number] [place] [address]- 9340 March, [facility] [address] [id number] [place] [address]- 8052 March, [facility] [address] [id number] [place] [address]- 2546 12 Feb, 2013 [facility] [address] [id number] [place] [address]- 5221 03 Feb, 2013 [facility] [place] [facility] [address] [id number] [place] [address]- 9749 27 Jan, 2013 [facility] [place] [facility] [address] [id number] [place] [address]- 0756 18 Jan, 2013 [facility] [place] [facility] [address] [id number] [place] [address]- 2552 15 Jan, 2013 [facility] [place] [facility] [address] [id number] [place] [address]- 6214 14 Jan, 2013 [facility] [place] [facility] [address] [id number] [place] [address]- 9391 13 Jan, 2013 [facility] [place] [facility] [address] [id number] [place] [address]- 9398 12 Jan, 2013 [facility] [place] [facility] [address] [id number] [place] [address]- 2197 11 Jan, 2013 [facility] [place] [facility] [address] [id number] [place] [address]- 4388 09 Jan, 2013 [facility] [place] [facility] [address] [id number] [place] [address]- 4590 08 Jan, 2013 [facility] [place] [facility] [address] [id number] [place] [address]- 5240 07 Jan, 2013 [facility] [place] [facility] [address] [id number] [place] [address]- 2386 06 Jan, 2013 [facility] [place] [facility] [address] [id number] [place] [address]- 7696 17 Nov, 2012 [facility] [place] [facility] [address] [id number] [place] [address]- 4230 Oct, [facility] [place] [facility] [address] [id number] [place] [address]- 0803 Oct, [facility] [place] [facility] [address] [id number] [place] [address]- 0798 Oct, [facility] [place] [facility] [address] [id number] [place] [address]- 6908 Oct, [facility] [place] [facility] [address] [id number] [place] [address]- 6430 Sep, [facility] [place] [facility] [address] [id number] [place] [address]- 5509 Sep, [facility] [place] [facility] [address] [id number] [place] [address]- 9248 Sep, [facility] [place] [facility] [address] [id number] [place] [address]- 6733 Sep, [facility] [place] [facility] [address] [id number] [place] [address]- 7680 Sep, [facility] [place] [facility] [address] [id number] [place] [address]- 2562 Sep, [facility] [place] [facility] [address] [id number] [place] [address]- 2781 Sep, [facility] [place] [facility] [address] [id number] [place] [address]- 1798 Sep, [facility] [place] [facility] [address] [facility] [id number] [place] [address]- 1352 Sep, [facility] [place] [facility] [address] [id number] [place] [address]- 1476 Sep, [facility] [place] [facility] [address] [id number] [place] [address]- 1925 Sep, [facility] [place] [facility] [address] [id number] [place] [address]- 9830 Aug, [facility] [place] [facility] [address] [id number] [place] [address]- 4420 Aug, [facility] [place] [facility] [address] [id number] [place] [address]- 1655 Aug, [facility] [place] [facility] [address] [id number] [place] [address]- 8880 28 Jul, 2012 [facility] [place] [facility] [address] [id number] [place] [address]- 4471 25 Jul, 2012 [facility] [place] [facility] [address] [id number] [place] [address]- 7812 19 Jul, 2012 [facility] [place] [facility] [address] [id number] [place] [address]- 6342 17 Jul, 2012 [facility] [place] [facility] [address] [id number] [place] [address]- 0593 20 Jun, 2012 [facility] [place] [facility] [address] [id number] [place] [address]- 3643 16 Jun, 2012 [facility] [place] [facility] [address] [id number] [place] [address]- 8081 15 Jun, 2012 [facility] [place] [facility] [address] [id number] [place] [address]- 3303 15 Jun, 2012 [facility] [place] [facility] [address] [id number] [place] [address]- 5784 13 Jun, 2012 [facility] [place] [facility] [address] [id number] [place] [address]- 6217 March, [facility] [place] [facility] [address] [id number] [place] [address]- 2511 04 Feb, 2012 [facility] [place] [facility] [address] [id number] [address]- 9761 28 Jan, 2012 [facility] [place] [facility] [address] [id number] [place] [address]- 1988 27 Jan, 2012 [facility] [place] [facility] [address] [id number] [place] [address]- 0861 22 Jan, 2012 [facility] [place] [facility] [address] [id number] [place] [address]- 6933 14 Jan, 2012 [facility] [place] [facility] [address] [id number] [address]- 9547 14 Jan, 2012 [facility] [address] [id number] [place] [address]- 1250 14 Jan, 2012 [facility] [place] [facility] [address] [id number] [place] [address]- 1356 28 Dec, 2011 [facility] [place] [facility] [address] [id number] [place] [address]- 4276 27 Dec, 2011 [facility] [place] [facility] [address] [id number] [place] [address] 23 Dec, 2011 [facility] [place] [facility] [address] [id number] [place] [address] 21 Dec, 2011 [facility] [place] [facility] [address] [id number] [place] [address] 20 Dec, 2011 [facility] [place] [facility] [address] [id number] [place] [address] 19 Dec, 2011 [facility] [place] [facility] [address] [facility] [id number] [place] [address] 17 Dec, 2011 [facility] [place] [facility] [id number] [place] [address] 16 Dec, 2011 [facility] [address] [id number] [place] [address] 31 Nov, 2011 [facility] [place] [facility] [address] [facility] [id number] [place] [address] 13 Oct, 2011 [facility] [place] [facility] [address] [id number] [place] [address] 18 Sep, 2011 [facility] [place] [facility] [address] [id number] [place] [address] 18 Sep, 2011 [facility] [place] [facility] [address] [facility] [id number] [place] [address] 17 Sep, 2011 [facility] [place] [facility] [address] [facility] [id number] [place] [address] Sep, [facility] [address] [facility] [id number] [place] [address] Sep, [facility] [address] [facility] [id number] [address] Sep, [facility] [address] [facility] [id number] [place] [address] Jan, [facility] [address] [facility] [id number] [place] [address] Apr, IMMUNIZATIONS No Known Immunizations SOCIAL HISTORY Never Assessed REASON FOR VISIT EMR-[facility] PLAN OF CARE VITAL SIGNS MEDICATIONS No [...] History Left ovary removed 12/2017 Hospitalization History [place] Admission x4 2009 most recent admission Hospitalization History [facility]; overdose 2010 Hospitalization History child 11/29/2016
--- OUTSIDE RECORDS SUMMARY | 2019-03-04 16:41 | XMS REPORT ---
Author Author Migration, Doctor Organization [facility] Address Unknown Phone Unavailable Care Team Providers Care Objective C Developer Name Role Phone Migration, Doctor Unavailable Unavailable PROBLEMS Type Condition ICD9-CM Code UHT36-AX Code Onset Dates Condition Status SNOMED Code Problem Generalized anxiety disorder F41.1 Active 03337535 Problem Bipolar disorder, current episode mixed, moderate F31.62 Active 205426172 Problem Acute non intractable tension-type headache G44.209 Active 623321137 Problem Constipation K59.00 Active 80105150 Problem Post traumatic stress disorder F43.10 Active 50703378 Problem Borderline personality disorder F60.3 Active 70947592 Problem Endometriosis N80.9 Active 327588729 Problem Acute right-sided low back pain with right-sided sciatica M54.41 Active 252862141 ALLERGIES No Information ENCOUNTERS Encounter Location Date Diagnosis [place] [address] [address] Jan, Bipolar disorder, current episode mixed, moderate F31.62 [place] [address] [address] Dec, Bipolar disorder, current episode mixed, moderate F31.62 [place] [address] [address]- [address] Nov, Bipolar disorder, current episode mixed, moderate F31.62 [facility] [address] [place] [id number] [place] [address] 11195 -5146 Oct, Sore throat J02.9 [facility] [address] [address] Oct, Abdominal pain R10.9 ; Low back pain M54.5 ; Left shoulder pain M25.512 and Constipation K59.00 [facility] [address] [address]- [address] Oct, Bipolar disorder, current episode mixed, moderate F31.62 ; Post traumatic stress disorder F43.10 and Borderline personality disorder F60.3 [facility] [address] [place] [id number] [place] [address] 61174- 2767 Sep, Bipolar disorder, current episode mixed, moderate F31.62 [place] [address] 72942- 7677 Aug, Bipolar disorder, current episode mixed, moderate F31.62 [place] [address] [place] [id number] [place] [address] 54643- 9338 Jul, Thrombophlebitis I80.9 and Pelvic pain R10.2 [place] [address] [place] [id number] [place] [address] 05862- 7515 05 Jul, 2018 Bipolar disorder, current episode mixed, moderate F31.62 ; Post traumatic stress disorder F43.10 and Borderline personality disorder F60.3 [place] [address] [place] [id number] [place] [address] 57900- 9737 Jun, Bipolar disorder, current episode mixed, moderate F31.62 [place] [address] [place] [id number] [place] [address] 60556- 2232 May, Palpitations R00.2 [place] [address] [place] [id number] [place] [address] 92915- 5039 May, Palpitations R00.2 [place] [address] [place] [id number] [place] [address] 25198- 4454 May, Palpitations R00.2 and Frequent bowel movements R19.4 [place] [address] [place] [id number] [place] [address] 02401- 0752 May, Bipolar disorder, current episode mixed, moderate F31.62 ; Post traumatic stress disorder F43.10 and Borderline personality disorder F60.3 [facility] [address] [place] [address] [id number] Apr, Dental examination Z01.20 [facility] [address] [address] 15 Apr, 2018 [place] [address] [place] [id number] [place] [address] 75030- 6315 15 Apr, 2018 Dental examination Z01.20 [facility] [address] [place] [id number] [place] [address] 05558 -5235 15 Apr, 2018 Tooth pain K08.89 [place] [address] [place] [id number] [place] [address] 89830- 5606 06 Apr, 2018 Bipolar disorder, current episode mixed, moderate F31.62 ; Post traumatic stress disorder F43.10 and Borderline personality disorder F60.3 [facility] [address] [place] [id number] [place] [address] 25948 -9010 18 Mar, 2018 Abdominal pain R10.9 ; UTI symptoms R39.9 and Other microscopic hematuria R31.29 [place] [address] [place] [id number] [place] [address] 94680- 9044 18 Mar, 2018 [place] [address] [place] [id number] [place] [address] 64202- 2243 March, Bipolar disorder, current episode mixed, moderate F31.62 ; Post traumatic stress disorder F43.10 and Borderline personality disorder F60.3 [place] [address] [place] [id number] [place] [address] 87628- 9395 30 Feb, 2018 Encounter for immunization Z23 [place] [address] [place] [id number] [place] [address] 23605- 1168 Feb, Bipolar disorder, current episode mixed, moderate F31.62 ; Post traumatic stress disorder F43.10 and Borderline personality disorder F60.3 [place] [address] [place] [id number] [place] [address] 19830- 5731 Feb, Bipolar disorder, current episode mixed, moderate F31.62 ; Post traumatic stress disorder F43.10 ; Borderline personality disorder F60.3 and Other fpc (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 Z79.899 [place] [address] [place] [address] 30 Jan, 2018 Encounter for immunization Z23 [place] [address] [address]- [address] Jan, [facility] [address] 86203- 3391 Jan, Bipolar disorder, current episode mixed, moderate F31.62 [facility] [address] 61637 -9377 Jan, Lumbar back pain M54.5 [place] [address] [place] [id number] [place] [address] 19615- 0339 Dec, Low back pain M54.5 [place] [address] [place] [id number] [place] [address] 05122- 4341 Dec, Bipolar disorder, current episode mixed, moderate F31.62 [place] [address] [place] [id number] [place] [address] 06437- 1316 Dec, Generalized anxiety disorder F41.1 and Bipolar disorder, current episode mixed, moderate F31.62 [facility] [address] [place] [id number] [place] [address] 37309 -4456 Nov, Acute non intractable tension-type headache G44.209 [place] [address] [place] [id number] [place] [address] 30311- 9005 Nov, Bipolar disorder, current episode mixed, moderate F31.62 ; Post traumatic stress disorder F43.10 and Borderline personality disorder F60.3 [place] [address] [place] [id number] [place] [address] 05196- 5357 Nov, Bipolar disorder, current episode mixed, moderate F31.62 [facility] [address] [place] [id number] [place] [address] 42645 -8401 Nov, Abdominal pain R10.9 ; History of PCOS Z87.42 ; History of endometriosis Z87.42 and Pelvic pain R10.2 [place] [address] [place] [address] [place] [address]- 32[address] Nov, [facility] [address] [place] [id number] [place] [address] 32480 -2048 Oct, History of PCOS Z87.42 ; History of endometriosis Z87.42 and Pain R52 [facility] [address] [place] [id number] [place] [address] 30598- 3680 Oct, Bipolar disorder, current episode mixed, moderate F31.62 ; Post traumatic stress disorder F43.10 and Borderline personality disorder F60.3 [facility] [address] [place] [id number] [place] [address] 16809- 4802 Oct, Bipolar disorder, current episode mixed, moderate F31.62 [facility] [address] [place] [id number] [place] [address] 95448- 8631 Sep, Bipolar disorder, current episode mixed, moderate F31.62 ; Post traumatic stress disorder F43.10 ; Borderline personality disorder F60.3 and Other fpc (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 Z79.899 [facility] [address] [place] [id number] [place] [address] 80612- 0363 17 Sep, 2017 Bipolar disorder, current episode mixed, moderate F31.62 [facility] [address] [place] [id number] [place] [address] 48878 -3987 Sep, Endometriosis N80.9 and Acute right-sided low back pain with right-sided sciatica M54.41 [facility] [address] [place] [id number] [place] [address] 38260- 8957 Aug, [facility] [address] [place] [id number] [place] [address] 04841- 6713 Aug, Bipolar disorder, current episode mixed, moderate F31.62 ; Post traumatic stress disorder F43.10 and Borderline personality disorder F60.3 [facility] [address] [place] [address] 73197- 9531 Aug, Bipolar disorder, current episode mixed, moderate F31.62 ; Post traumatic stress disorder F43.10 and Borderline personality disorder F60.3 [facility] [address] [address]- 5417 13 Jul, 2017 Bipolar disorder, current episode mixed, moderate F31.62 ; Post traumatic stress disorder F43.10 and Borderline personality disorder F60.3 [facility] [address] [address] 11 Jul, 2017 Pharyngitis, unspecified etiology J02.9 and Streptococcal pharyngitis J02.0 [facility] [address] [place] [address] 23450- 8541 16 Jun, 2017 Bipolar disorder, current episode mixed, moderate F31.62 ; Post traumatic stress disorder F43.10 and Borderline personality disorder F60.3 [facility] [address] [address]- 8918 19 May, 2017 [facility] [address] [place] [id number] [place] [address] 60587- 8686 May, [facility] [address] [place] [id number] [place] [address] 41379- 8360 May, Bipolar disorder, current episode mixed, moderate F31.62 and Generalized anxiety disorder F41.1 [facility] [address] [place] [address] 97602- 3360 March, Bipolar disorder, current episode mixed, moderate F31.62 and Generalized anxiety disorder F41.1 [facility] [address] [place] [address] 33480- 3169 March, Pelvic pain R10.2 [facility] [address] [place] [address] 69306- 6699 March, [facility] [address] [place] [id number] [place] [address] 28907- 7866 05 Feb, 2017 Bipolar disorder, current episode mixed, moderate F31.62 and Generalized anxiety disorder F41.1 [facility] [address] [place] [address] 45662- 8459 Jan, [facility] [address] [place] [address] 22741- 6029 Jan, Bipolar disorder, current episode mixed, moderate F31.62 [facility] [address] [place] [id number] [place] [address]39 Jan, Bipolar disorder, current episode mixed, moderate F31.62 [facility] [address] 784854- 5242 Jan, Bilateral low back pain without sciatica M54.5 [facility] [address] [id number] Jan, Dental caries K02.9 and Dental examination Z01.20 [facility] [address] [id number] Jan, Encounter for dental examination and cleaning without abnormal findings Z01.20 [facility] [address] [place] [id number] [place] [address] 36713- 2331 Jan, Bipolar disorder, current episode mixed, moderate F31.62 and Generalized anxiety disorder F41.1 [facility] [address] 69297- 0387 Dec, [facility] [address] [place] [id number] [place] [address] 02632- 3492 Dec, Bipolar disorder, current episode mixed, moderate F31.62 and Generalized anxiety disorder F41.1 [facility] [address] [place] [id number] [place] [address] 99716- 6413 Dec, Other fatigue R53.83 and Orthostatic hypotension I95.1 [facility] [address] [id number] Nov, Dental examination Z01.20 [facility] [address] [place] [id number] [place] [address] 03003 -6892 Nov, Bronchitis J40 [facility] [address] [place] [phone]- 2546 Oct, Generalized anxiety disorder F41.1 [facility] [address] [place] [id number] [place] [address] 09659- 0361 14 Sep, 2016 Bipolar disorder, current episode mixed, moderate F31.62 and Generalized anxiety disorder F41.1 [facility] [address] [place] [id number] [place] [address] 59317- 3058 02 Sep, 2016 Bipolar disorder, current episode mixed, moderate F31.62 and Generalized anxiety disorder F41.1 [facility] [address] [place] [address] 25855 -2310 08 Jul, 2016 Upper respiratory tract infection, unspecified type J06.9 [facility] [address] [place] [id number] [place] [address] 25447- 7570 Jun, Bipolar disorder, current episode mixed, moderate F31.62 and Generalized anxiety disorder F41.1 [facility] [address] [place] [id number] [place] [address] 70533- 1828 Apr, [facility] [address] [place] [id number] [place] [address] 26555- 8113 Apr, Encounter for test, result positive Z32.01 [facility] [address] [place] [id number] [place] [address] 19211- 8054 March, [facility] [address] [place] [id number] [place] [address] 52756- 2171 March, Bipolar disorder, current episode mixed, moderate F31.62 and Generalized anxiety disorder F41.1 [facility] [address] [place] [id number] [place] [address] 92859- 2850 March, Bipolar disorder, current episode mixed, moderate F31.62 and Generalized anxiety disorder F41.1 [facility] [address] [place] [id number] [place] [address] 78692- 7515 March, [facility] [address] [place] [id number] [place] [address] 74027- 2042 March, [facility] [address] [place] [id number] [place] [address] 80550- 4392 Feb, [facility] [address] [place] [id number] [place] [address] 07938- 1174 Feb, [facility] [address] [place] [id number] [place] [address] 51083- 2056 Feb, Bipolar disorder, current episode mixed, moderate F31.62 and Generalized anxiety disorder F41.1 [facility] [address] [place] [id number] [place] [address] 58327- 7920 Jan, Abdominal pain R10.9 [facility] [address] [place] [id number] [place] [address] 02356- 0540 Jan, [facility] [address] [place] [id number] [place] [address] 00104- 4506 Dec, Dental examination Z01.20 [facility] [address] [place] [id number] [place] [address] 02476- 5943 Dec, Dental examination Z01.20 and Dental caries K02.9 [facility] [address] [place] [id number] [place] [address] 19113- 6651 Dec, Bipolar disorder, current episode mixed, moderate F31.62 and Generalized anxiety disorder F41.1 [facility] [address] [place] [id number] [place] [address] 99247- 7669 Dec, [facility] [address] [place] [id number] [place] [address] 35944- 9098 Nov, Bipolar disorder, current episode mixed, moderate F31.62 ; Generalized anxiety disorder F41.1 and Seizure-like activity R56.9 [facility] [address] [place] [id number] [place] [address] 70794- 0976 Oct, [facility] [address] [place] [id number] [place] [address] 94806- 9098 Oct, Bipolar disorder, current episode mixed, moderate F31.62 [facility] [address] [place] [id number] [place] [address] 12989- 7636 14 Oct, 2015 Well woman exam Z01.419 [...] Tobacco use Z72.0 and Hot flashes N95.[address] 69690- 9581 09 Oct, 2015 Seizure-like activity R56.9 and Irregular periods N92.[address] 15685- 4426 07 Oct, 2015 Bipolar disorder, current episode mixed, moderate F31.62 ; Generalized anxiety disorder F41.1 and Underweight R63.[address] 77165- 8029 Oct, [address] 16317- 8710 Oct, Generalized anxiety disorder F41.1 and Unspecified mood [ affective] disorder F39 [facility] [address] 67228 -5070 Oct, Back pain M54.9 and Anxiety F41.[address] 81993- 4855 Oct, [facility] [address] [place] [address] 15863 -4387 Sep, Arm pain, left M79.602 [facility] [address] [place] [address] 06605- 5884 Sep, [facility] [address] [place] [address] [id number] Sep, Dental examination Z01.20 and Dental caries K02.9 [facility] [address] [place] [id number] [place] [address] 20693- 5063 Sep, Generalized anxiety disorder F41.1 and Unspecified episodic mood disorder F39 [facility] [address] [place] [id number] [place] [address] 55291- 6115 Sep, Bilateral low back pain without sciatica M54.5 and Seizure- like activity R56.9 [facility] [address] [place] [id number] [place] [address] 18344- 0484 Aug, [facility] [address] [place] [id number] [place] [address] 14777- 3188 Aug, [facility] [address] [place] [id number] [place] [address] 36569- 7805 Aug, [facility] [address] [place] [id number] [place] [address] 44201- 5042 Aug, Visual changes H53.9 and Bilateral low back pain without sciatica M54.5 [facility] [address] [place] [id number] [place] [address] 23812- 0443 Jul, [facility] [address] [place] [address] 13943- 9085 Jun, Bipolar I disorder, most recent episode (or current) mixed, moderate 296.62 ; Generalized anxiety disorder 300.02 and High risk medication use V58.69 [facility] [address] [address]- 6688 Jun, [facility] [address] [place] [id number] [place] [address] 78562- 6726 May, [facility] [address] [place] [address] 25704- 2811 May, Bipolar I disorder, most recent episode (or current) mixed, moderate 296.62 and Generalized anxiety disorder 300.02 [facility] [address] [address] May, Dental examination V72.2 [facility] [address] [place] [id number] [place] [address] 894780- 8567 March, Bipolar I disorder, most recent episode (or current) mixed, moderate 296.62 and Generalized anxiety disorder 300.02 [facility] [address] [place] [id number] [place] [address] 843434- 1193 March, [facility] [address] [place] [id number] [place] [address] 98235- 8796 March, [facility] [address] [place] [id number] [place] [address] 96972- 2960 March, Underweight 783.22 ; Hand pain, right 729.5 and Reflux gastritis 535.40 [facility] [address] [address] [address]- 3504 Feb, [facility] [address] [place] [id number] [place] [address] 80723872- 8390 Feb, [facility] [address] [address]- 7744 18 Jan, 2015 [facility] [address] [address] 1056 18 Jan, 2015 [facility] [address] [address]- 1716 16 Jan, 2015 [facility] [address] [address]- 5996 16 Jan, 2015 [facility] [address], [place] [address]- 5839 Jan, [facility] [address] [address]- 1266 Jan, [facility] [address] [address]- 8746 05 Jan, 2015 [facility] [address] [id number] [place] [address]- 9366 05 Jan, 2014 [facility] [place] [facility] [address] [id number] [place] [address]- 5602 Jan, 2014 [facility] [place] [facility] [address] [facility] [id number] [place] [address]- 0263 Jan, 2014 [facility] [place] [facility] [address] [facility] [id number] [place] [address]- 7041 Jan, 2014 [facility] [place] [facility] [address] [id number] [place] [address]- 1576 Jan, [facility] [place] [facility] [address] [facility] [id number] [place] [address]- 0084 Dec, 2014 [facility] [place] [facility] [address] [facility] [id number] [place] [address]- 4985 20 Dec, 2014 [facility] [place] [facility] [address] [facility] [id number] [place] [address]- 9039 19 Dec, 2014 [facility] [place] [facility] [address] [facility] [id number] [place] [address]- 8492 19 Dec, 2014 [facility] [place] [facility] [address] [facility] [id number] [place] [address]- 8007 18 Dec, 2014 [facility] [place] [facility] [address] [facility] [id number] [place] [address]- 5858 17 Dec, 2014 [facility] [place] [facility] [address] [facility] [id number] [place] [address]- 2102 17 Dec, 2014 [facility] [place] [facility] [address] [facility] [id number] [place] [address]- 2136 16 Dec, 2014 [facility] [place] [facility] [address] [facility] [id number] [place] [address]- 0435 16 Dec, 2014 [facility] [place] [facility] [address] [facility] [id number] [address]- 1586 05 Dec, 2014 [facility] [place] [facility] [address] [facility] [id number] [address]- 1064 Dec, 2014 [facility] [place] [facility] [address] [id number] [place] [address]- 9524 Dec, 2014 [facility] [place] [facility] [address] [facility] [id number] [place]- 4246 Dec, 2014 [facility] [place] [facility] [address] [facility] [id number] [place] [address]- 0166 Dec, 2014 [facility] [place] [facility] [address] [facility] [id number] [place] [address]- 4575 Dec, 2014 [facility] [place] [facility] [address] [id number] [place] [address]- 1315 Dec, 2014 [facility] [place] [facility] [address] [facility] [id number] [place] [address]- 6609 Dec, 2014 [facility] [place] [facility] [address] [facility] [id number] [place] [address]- 6793 Dec, 2014 [facility] [place] [facility] [address] [facility] [id number] [place] [address] Dec, [facility] [place] [facility] [address] [facility] [id number] [place] [address] Nov, [facility] [place] [facility] [address] [facility] [id number], [place] [address] Nov, [facility] [place] [facility] [address] [facility] [id number][place] [address] Nov, [facility] [place] [facility] [address] [facility] [id number], [place] [address] Nov, [facility] [place] [facility] [address] [facility] [id number] [place] [address] Nov, [facility] [place] [facility] [address] [facility] [id number] [place] [address] Nov, [facility] [place] [facility] [address] [id number] [id number] Nov, [facility] [place] [facility] [address] [id number] [place] [address] Nov, [facility] [address] [id number] [place] [address] Nov, [facility] [address] [address] [id number] [place] [id number] Nov, [facility] [address] [id number] [place] [address] Nov, [facility] [address] [id number] [place] [address] 8[address] Nov, [facility] [address] [id number] [place] [address] Oct, [facility] [address] [id number] [place] [address] 9679 Oct, [facility] [address] [id number] [place] [address] 6275 Oct, [facility] [address] [id number] [place] [address] 5442 Oct, [facility] [address] [id number] [place] [address] 8727 Oct, [facility] [address] [id number] [place] [address] 5291 29 Oct, 2014 [facility] [address] [id number] [place] [address] Oct, [facility] [place] [facility] [address] [id number] [place] [address] 3052 Oct, [facility] [place] [facility] [address] [id number] [place] [address] 0899 17 Oct, 2014 [facility] [place] [facility] [address] [id number] [place] [address]- 0706 17 Oct, 2014 [facility] [place] [facility] [address] [id number] [place] [address] 4400 Oct, [facility] [place] [facility] [address] [id number] [place] [address] 0113 Oct, [facility] [place] [facility] [address] [id number] [place] [address] 0075 Sep, [facility] [place] [facility] [address] [id number] [place] [address] 7322 Sep, [facility] [place] [facility] [address] [id number] [place] [address] 6830 Sep, [facility] [place] [facility] [address] [id number] [place] [address]- 9004 Sep, [facility] [place] [facility] [address] [id number] [place] [address] 4625 Sep, [facility] [place] [facility] [address] [id number] [place] [address]- 2576 Sep, [facility] [place] [facility] [address] [id number] [address] Sep, [facility] [place] [facility] [address] [id number] [place] [address]- 0885 Sep, [facility] [place] [facility] [address] [id number], [place] [address] Aug, [facility] [place] [facility] [address] [id number], [place] [address] 5717 Aug, [facility] [place] [facility] [address] [id number], [place] [address]- 9008 Aug, [facility] [place] [facility] [address] [id number][place] [address]- 8302 Aug, [facility] [place] [facility] [address] [id number][place] [address]- [address] Aug, [facility] [place] [facility] [address] [id number] [address] Aug, [facility] [place] [facility] [address] [id number] [place] [address]- 6498 08 Aug, 2014 [facility] [place] [facility] [address] [id number] [place] [address]- 1164 08 Aug, 2014 [facility] [place] [facility] [address] [id number] [place] [address]- 0015 Aug, [facility] [place] [facility] [address] [id number] [place] [address]- 6621 Aug, [facility] [place] [facility] [address] [id number] [place] [address]- 5577 Aug, [facility] [place] [facility] [address] [id number] [place] [address]- 5111 Aug, [facility] [place] [facility] [address] [id number] [place] [address]- 3847 Aug, [facility] [place] [facility] [address] [id number] [place] [address]- 6263 Jul, [facility] [place] [facility] [address] [id number] [place] [address] 0048 Jul, [facility] [place] [facility] [address] [id number] [place] [address] 8860 Jul, [facility] [place] [facility] [address] [id number] [place] [address]- 3517 Jul, [facility] [place] [facility] [address] [id number] [place] [address]- 0954 Jun, [facility] [place] [facility] [address] [id number] [place] [address]- 5698 Jun, [facility] [place] [facility] [address] [id number] [place] [address]- 7945 Jun, [facility] [place] [facility] [address] [id number] [place] [address]- 0772 Jun, [facility] [place] [facility] [address] [id number] [place] [address]- 0972 Jun, [facility] [place] [facility] [address] [id number] [place] [address]- 3869 Jun, [facility] [place] [facility] [address] [id number] [place] [address]- 5685 May, [facility] [place] [facility] [address] [id number] [place] [address]- 7300 May, [facility] [place] [facility] [address] [id number] [place] [address]- 5297 May, [facility] [place] [facility] [address] [id number] [place] [address]- 1594 May, [facility] [place] [facility] [address] [id number] [place] [address] 1249 Apr, [facility] [place] [facility] [address] [id number] [place] [address]- 5926 Apr, [facility] [place] [facility] [address] [id number] [place] [address]- 7296 March, [facility] [place] [facility] [address] [id number] [place] [address]- 9320 March, [facility] [place] [facility] [address] [id number] [place] [address]- 3704 March, [facility] [place] [facility] [address] [id number] [place] [address] 1333 March, [facility] [place] [facility] [address] [id number] [place] [address]- 9808 March, [facility] [place] [facility] [address] [id number] [place] [address]- 0728 March, [facility] [place] [facility] [address] [id number] [place] [address]- 5525 Feb, [facility] [place] [facility] [address] [id number] [place] [address] 2285 Feb, [facility] [place] [facility] [address] [id number][place] [address] 3410 Dec, [facility] [place] [facility] [address] [id number] [place] [address]- 8847 Dec, [facility] [place] [facility] [address] [id number] [place] [address] 6041 Nov, [facility] [place] [facility] [address] [id number] [place] [address] 7539 Nov, [facility] [place] [facility] [address] [id number] [place] [address]- 6913 Sep, [facility] [place] [facility] [address] [id number] [place] [address]- 7419 Sep, [facility] [place] [facility] [address] [id number] [place] [address]- 3612 Sep, [facility] [place] [facility] [address] [facility] [id number] [place] [address]- 5422 Sep, [facility] [place] [facility] [address] [id number] [place] [address]- 4430 Sep, [facility] [place] [facility] [address] [facility] [id number] [place] [address]- 5161 Sep, [facility] [place] [facility] [address] [facility] [id number] [place] [address]- 7098 Sep, [facility] [place] [facility] [address] [id number][place] [address]- 4592 Aug, [facility] [place] [facility] [address] [id number], [place] [address]- 8404 Aug, [facility] [place] [facility] [address] [id number], [place] [address]- 5791 Aug, [facility] [place] [facility] [address] [id number] [place] [address]- 9144 Aug, [facility] [place] [facility] [address] [facility] [id number][place] [address]- 2113 Aug, [facility] [place] [facility] [address] [id number] [place] [address]- 9550 Aug, [facility] [place] [facility] [address] [id number] [place] [address]- 0462 Jul, [facility] [place] [facility] [address] [id number] [place] [address]- 3926 Jul, [facility] [place] [facility] [address] [id number] [place] [address]- 0126 16 Jul, 2013 [facility] [place] [facility] [address] [id number] [place] [address]- 4952 Jul, [facility] [place] [facility] [address] [id number] [place] [address]- 7389 Jun, [facility] [place] [facility] [address] [id number] [place] [address]- 8620 Jun, [facility] [place] [facility] [address] [id number] [place] [address]- 9459 Jun, [facility] [place] [facility] [address] [id number] [place] [address]- 3092 Jun, [facility] [place] [facility] [address] [id number] [place] [address]- 9342 Jun, [facility] [place] [facility] [address] [id number] [place] [address]- 8480 Jun, [facility] [place] [facility] [address] [id number] [place] [address]- 4066 Jun, [facility] [place] [facility] [address] [id number] [place] [address]- 5215 May, [facility] [place] [facility] [address] [id number] [place] [address]- 7710 May, [facility] [place] [facility] [address] [id number] [place] [address]- 2546 May, [facility] [place] [facility] [address] [id number] [place] [address]- 0665 15 May, 2013 [facility] [place] [facility] [address] [id number] [place] [address]- 7404 13 May, 2013 [facility] [place] [facility] [address] [id number] [place] [address]- 2155 05 May, 2013 [facility] [place] [facility] [address] [id number] [place] [address]- 1214 03 May, 2013 [facility] [place] [facility] [address] [id number] [place] [address]- 4315 28 Apr, 2013 [facility] [place] [facility] [address] [id number] [place] [address]- 5118 27 Apr, 2013 [facility] [place] [facility] [address] [id number] [place] [address]- 4100 27 Apr, 2013 [facility] [place] [facility] [address] [id number] [place] [address]- 7196 26 Apr, 2013 [facility] [place] [facility] [address] [id number] [place] [address]- 6823 20 Apr, 2013 [facility] [place] [facility] [address] [id number] [place] [address]- 0036 18 Apr, 2013 [facility] [place] [facility] [address] [id number] [place] [address]- 3649 18 Apr, 2013 [facility] [place] [facility] [address] [id number] [place] [address]- 0013 18 Apr, 2013 [facility] [place] [facility] [address] [id number] [address]- 9050 17 Apr, 2013 [facility] [place] [facility] [address] [id number] [place] [address]- 6267 14 Apr, 2013 [facility] [place] [facility] [address] [id number] [place] [address]- 3871 14 Apr, 2013 [facility] [place] [facility] [address] [id number] [place] [address]- 4581 11 Apr, 2013 [facility] [place] [facility] [address] [id number] [place] [address]- 6315 10 Apr, 2013 [facility] [address] [id number] [place] [address]- 1482 09 Apr, 2013 [facility] [address] [id number] [place] [address]- 0893 Apr, [facility] [address] [id number] [place] [address]- 9378 Apr, [facility] [address] [id number] [place] [address]- 1606 Apr, [facility] [address] [id number] [place] [address]- 3968 Apr, [facility] [address] [id number] [place] [address]- 4799 Apr, [facility] [address] [id number] [place] [address]- 6691 March, [facility] [address] [id number] [place] [address]- 7965 March, [facility] [address] [id number] [place] [address]- 2797 March, [facility] [address] [id number] [place] [address]- 6798 March, [facility] [address] [id number] [place] [address]- 6596 March, [facility] [address] [id number] [place] [address]- 9369 March, [facility] [place] [facility] [address] [id number] [place] [address]- 3869 March, [facility] [place] [facility] [address] [id number] [place] [address]- 1225 Feb, [facility] [address] [id number] [place] [address]- 4051 Feb, [facility] [address] [id number] [place] [address]- 3786 27 Jan, 2013 [facility] [address] [id number] [place] [address]- 9338 18 Jan, 2013 [facility] [address] [id number] [place] [address]- 1823 15 Jan, 2013 [facility] [address] [id number] [place] [address]- 8984 14 Jan, 2013 [facility] [address] [id number] [place] [address]- 5926 13 Jan, 2013 [facility] [address] [id number] [place] [address]- 6815 12 Jan, 2013 [facility] [address] [id number] [place] [address]- 3877 11 Jan, 2013 [facility] [address] [id number] [place] [address]- 6524 09 Jan, 2013 [facility] [address] [id number] [place] [address]- 9170 08 Jan, 2013 [facility] [address] [id number] [place] [address]- 1770 07 Jan, 2013 [facility] [address] [id number] [place] [address]- 6286 06 Jan, 2013 [facility] [address] [id number] [place] [address]- 0429 17 Nov, 2012 [facility] [address] [id number] [place] [address]- 9289 Oct, [facility] [place] [facility] [address] [id number] [place] [address]- 3164 Oct, [facility] [place] [facility] [address] [id number] [place] [address]- 6222 11 Oct, 2012 [facility] [address] [id number][place] [address]- 6915 Oct, [facility] [place] [facility] [address] [id number] [place] [address]- 8630 Sep, [facility] [place] [facility] [address] [id number] [place] [address]- 9277 Sep, [facility] [place] [facility] [address] [facility] [id number] [place] [address]- 4932 Sep, [facility] [place] [facility] [address] [id number], [place] [address]- 1062 Sep, [facility] [place] [facility] [address] [id number] [place] [address]- 2410 Sep, [facility] [place] [facility] [address] [id number] [place] [address]- 0885 Sep, [facility] [place] [facility] [address] [id number] [place] [address]- 6451 Sep, [facility] [place] [facility] [address] [id number], [place] [address]- 5255 Sep, [facility] [place] [facility] [address] [id number], [place] [address]- 3478 Sep, [facility] [place] [facility] [address] [id number], [place] [address]- 0457 Sep, [facility] [place] [facility] [address] [id number], [place] [address]- 0084 Sep, [facility] [place] [facility] [address] [id number], [place] [address]- 6782 Aug, [facility] [place] [facility] [address] [id number][place] [address]- 6690 Aug, [facility] [place] [facility] [address] [facility] [id number], [place] [address]- 7703 Aug, [facility] [place] [facility] [address] [id number], [place] [address]- 4517 Jul, [facility] [place] [facility] [address] [id number] [place] [address]- 7231 25 Jul, 2012 [facility] [address] [id number] [place] [address]- 6926 19 Jul, 2012 [facility] [address] [id number] [place] [address]- 9176 17 Jul, 2012 [facility] [address] [id number] [place] [address]- 7340 20 Jun, 2012 [facility] [address] [id number] [place] [address]- 5982 16 Jun, 2012 [facility] [address] [id number] [place] [address]- 4293 15 Jun, 2012 [facility] [address] [id number] [place] [address]- 0604 15 Jun, 2012 [facility] [address] [id number] [place] [address]- 9757 13 Jun, 2012 [facility] [address] [id number] [place] [address]- 7819 18 Mar, 2012 [facility] [address] [id number] [place] [address]- 8921 04 Feb, 2012 [facility] [address] [id number] [place] [address]- 8786 28 Jan, 2012 [facility] [place] [facility] [address] [id number] [place] [address]- 7613 27 Jan, 2012 [facility] [address] [id number] [place] [address]- 3878 22 Jan, 2012 [facility] [place] [facility] [address] [id number] [place] [address]- 7500 14 Jan, 2012 [facility] [place] [facility] [address] [id number] [place] [address]- 4831 14 Jan, 2012 [facility] [place] [facility] [address] [id number] [place] [address]- 6225 14 Jan, 2012 [facility] [place] [facility] [address] [id number] [place] [address]- 7802 28 Dec, 2011 [facility] [place] [facility] [address] [id number] [place] [address]- 1076 27 Dec, 2011 [facility] [place] [facility] [address] [id number] [place] [address]- 6336 23 Dec, 2011 [facility] [place] [facility] [address] [id number] [place] [address]- 0746 21 Dec, 2011 [facility] [place] [facility] [address] [id number] [place] [address]- 6116 20 Dec, 2011 [facility] [place] [facility] [address] [id number] [place] [address]- 3696 19 Dec, 2011 [facility] [place] [facility] [address] [id number] [place] [address]- 6836 17 Dec, 2011 [facility] [place] [facility] [address] [id number] [place] [address]- 0615 16 Dec, 2011 [facility] [place] [facility] [address] [id number] [place] [address]- 0708 Nov, [facility] [place] [facility] [address] [id number] [place] [address]- 5053 Oct, [facility] [place] [facility] [address] [id number] [place] [address]- 6822 18 Sep, 2011 [facility] [place] [facility] [address] [id number] [place] [address]- 6931 18 Sep, 2011 [facility] [place] [facility] [address] [id number] [place] [address]- 2136 17 Sep, 2011 [facility] [place] [facility] [address] [facility] [id number] [place] [address]- 8441 17 Sep, 2011 [facility] [place] [facility] [address] [facility] [id number] [place] [address]- 4946 07 Sep, 2011 [facility] [place] [facility] [address] [facility] [id number] [place] [address]- 2546 Sep, [facility] [address] [facility] [id number] [place] [address]- 1194 Jan, [facility] [address] [facility] [id number] [place] [address]- 8367 Apr, IMMUNIZATIONS No Known Immunizations SOCIAL HISTORY [...]
--- OUTSIDE RECORDS SUMMARY | 2019-03-04 16:41 | XMS REPORT ---
Author Author Migration, Doctor Organization [facility] Address Unknown Phone Unavailable Care Team Providers Care Policy Officer Name Role Phone Migration, Doctor Unavailable Unavailable PROBLEMS Type Condition ICD9-CM Code [id number] Code Onset Dates Condition Status SNOMED Code Problem Generalized anxiety disorder F41.1 Active 43274797 Problem Bipolar disorder, current episode mixed, moderate F31.62 Active 214537329 Problem Acute non intractable tension-type headache G44.209 Active 585139751 Problem Constipation K59.00 Active 16331884 Problem Post traumatic stress disorder F43.10 Active 37503369 Problem Borderline personality disorder F60.3 Active 11880890 Problem Endometriosis N80.9 Active 202671984 Problem Acute right-sided low back pain with right-sided sciatica M54.41 Active [id number] ALLERGIES No Information ENCOUNTERS Encounter Location Date Diagnosis [place] [address] [address] Jan, Bipolar disorder, current episode mixed, moderate F31.62 [place] [address] 89882- 2460 Dec, Bipolar disorder, current episode mixed, moderate F31.62 [place] [address] 71529- 8473 Nov, Bipolar disorder, current episode mixed, moderate F31.62 [facility] [address] [place] [id number] [place] [address] 77068 -7496 Oct, Sore throat J02.9 [facility] [address] [address] Oct, Abdominal pain R10.9 ; Low back pain M54.5 ; Left shoulder pain M25.512 and Constipation K59.00 [facility] [address] 15762- 7377 Oct, Bipolar disorder, current episode mixed, moderate F31.62 ; Post traumatic stress disorder F43.10 and Borderline personality disorder F60.3 [facility] [address] [place] [id number] [place] [address] 40399- 0342 Sep, Bipolar disorder, current episode mixed, moderate F31.62 [place] [address] 18378- 8456 Aug, Bipolar disorder, current episode mixed, moderate F31.62 [place] [address] [place] [id number] [place] [address] 40040- 6815 Jul, Thrombophlebitis I80.9 and Pelvic pain R10.2 [place] [address] [place] [id number] [place] [address] 79494- 4161 05 Jul, 2018 Bipolar disorder, current episode mixed, moderate F31.62 ; Post traumatic stress disorder F43.10 and Borderline personality disorder F60.3 [place] [address] [place] [id number] [place] [address] 17713- 7791 Jun, Bipolar disorder, current episode mixed, moderate F31.62 [place] [address] [place] [id number] [place] [address] 91971- 8913 May, Palpitations R00.2 [place] [address] [place] [id number] [place] [address] 03121- 9705 May, Palpitations R00.2 [place] [address] [place] [id number] [place] [address] 99628- 8812 May, Palpitations R00.2 and Frequent bowel movements R19.4 [place] [address] [place] [id number] [place] [address] 35484- 3044 May, Bipolar disorder, current episode mixed, moderate F31.62 ; Post traumatic stress disorder F43.10 and Borderline personality disorder F60.3 [facility] [address] [place] [address] [id number] Apr, Dental examination Z01.20 [facility] [address], [place] [address] 15 Apr, 2018 [place] [address] [place] [id number] [place] [address] 95522- 6398 15 Apr, 2018 Dental examination Z01.20 [facility] [address] [place] [id number] [place] [address] 69424 -6601 15 Apr, 2018 Tooth pain K08.89 [place] [address] [place] [id number] [place] [address] 99031- 1680 06 Apr, 2018 Bipolar disorder, current episode mixed, moderate F31.62 ; Post traumatic stress disorder F43.10 and Borderline personality disorder F60.3 [facility] [address] [place] [id number] [place] [address] 03554 -4717 18 Mar, 2018 Abdominal pain R10.9 ; UTI symptoms R39.9 and Other microscopic hematuria R31.29 [place] [address] [place] [id number] [place] [address] 10669- 8580 18 Mar, 2018 [place] [address] [place] [id number] [place] [address] 08477- 6298 March, Bipolar disorder, current episode mixed, moderate F31.62 ; Post traumatic stress disorder F43.10 and Borderline personality disorder F60.3 [place] [address] [place] [id number] [place] [address] 48282- 0113 30 Feb, 2018 Encounter for immunization Z23 [place] [address] [place] [id number] [place] [address] 10520- 8342 Feb, Bipolar disorder, current episode mixed, moderate F31.62 ; Post traumatic stress disorder F43.10 and Borderline personality disorder F60.3 [place] [address] [place] [id number] [place] [address] 10382- 9735 Feb, Bipolar disorder, current episode mixed, moderate F31.62 ; Post traumatic stress disorder F43.10 ; Borderline personality disorder F60.3 and Other fdc (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 Z79.899 [place] [address] [place] [address] 7[address] 30 Jan, 2018 Encounter for immunization Z23 [place] [address] 86323- 9297 Jan, [facility] [address] 95946- 5463 Jan, Bipolar disorder, current episode mixed, moderate F31.62 [facility] [address] 05767 -9022 Jan, Lumbar back pain M54.5 [place] [address] [place] [id number] [place] [address] 55198- 1010 Dec, Low back pain M54.5 [place] [address] [place] [id number] [place] [address] 31949- 6916 Dec, Bipolar disorder, current episode mixed, moderate F31.62 [place] [address] [place] [id number] [place] [address] 83820- 8197 Dec, Generalized anxiety disorder F41.1 and Bipolar disorder, current episode mixed, moderate F31.62 [facility] [address] [place] [id number] [place] [address] 05649 -6725 Nov, Acute non intractable tension-type headache G44.209 [place] [address] [place] [id number] [place] [address] 74449- 6925 Nov, Bipolar disorder, current episode mixed, moderate F31.62 ; Post traumatic stress disorder F43.10 and Borderline personality disorder F60.3 [place] [address] [place] [id number] [place] [address] 45474- 4702 Nov, Bipolar disorder, current episode mixed, moderate F31.62 [facility] [address] [place] [id number] [place] [address] 56271 -5049 Nov, Abdominal pain R10.9 ; History of PCOS Z87.42 ; History of endometriosis Z87.42 and Pelvic pain R10.2 [place] [address] [place] [address] [place] [address]- 40[address] Nov, [facility] [address] [place] [id number] [place] [address] 64133 -9807 Oct, History of PCOS Z87.42 ; History of endometriosis Z87.42 and Pain R52 [facility] [address] [place] [id number] [place] [address] 54188- 2626 Oct, Bipolar disorder, current episode mixed, moderate F31.62 ; Post traumatic stress disorder F43.10 and Borderline personality disorder F60.3 [facility] [address] [place] [id number] [place] [address] 97861- 4244 Oct, Bipolar disorder, current episode mixed, moderate F31.62 [facility] [address] [place] [id number] [place] [address] 96285- 3372 Sep, Bipolar disorder, current episode mixed, moderate F31.62 ; Post traumatic stress disorder F43.10 ; Borderline personality disorder F60.3 and Other fdc (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 Z79.899 [facility] [address] [place] [id number] [place] [address] 70569- 9369 17 Sep, 2017 Bipolar disorder, current episode mixed, moderate F31.62 [facility] [address] [place] [id number] [place] [address] 77037 -1788 Sep, Endometriosis N80.9 and Acute right-sided low back pain with right-sided sciatica M54.41 [facility] [address] [place] [id number] [place] [address] 00274- 3827 Aug, [facility] [address] [place] [id number] [place] [address] 02640- 3114 Aug, Bipolar disorder, current episode mixed, moderate F31.62 ; Post traumatic stress disorder F43.10 and Borderline personality disorder F60.3 [facility] [address] [place] [address] 60383- 5735 Aug, Bipolar disorder, current episode mixed, moderate F31.62 ; Post traumatic stress disorder F43.10 and Borderline personality disorder F60.3 [facility] [address], [place] [address]- 8755 13 Jul, 2017 Bipolar disorder, current episode mixed, moderate F31.62 ; Post traumatic stress disorder F43.10 and Borderline personality disorder F60.3 [facility] [address], [place] [address] 11 Jul, 2017 Pharyngitis, unspecified etiology J02.9 and Streptococcal pharyngitis J02.0 [facility] [address] [place] [address] 98981- 0007 16 Jun, 2017 Bipolar disorder, current episode mixed, moderate F31.62 ; Post traumatic stress disorder F43.10 and Borderline personality disorder F60.3 [facility] [address], [place] [address]- 7872 19 May, 2017 [facility] [address] [place] [id number] [place] [address] 72681- 8083 May, [facility] [address] [place] [id number] [place] [address] 98226- 6649 May, Bipolar disorder, current episode mixed, moderate F31.62 and Generalized anxiety disorder F41.1 [facility] [address] [place] [address] 17825- 5362 March, Bipolar disorder, current episode mixed, moderate F31.62 and Generalized anxiety disorder F41.1 [facility] [address] [place] [address] 60582- 2762 March, Pelvic pain R10.2 [facility] [address] [place] [address] 95192- 1764 March, [facility] [address] [place] [id number] [place] [address] 77248- 2881 05 Feb, 2017 Bipolar disorder, current episode mixed, moderate F31.62 and Generalized anxiety disorder F41.1 [facility] [address] [place] [address] 35874- 6714 Jan, [facility] [address] [place] [address] 57610- 0950 Jan, Bipolar disorder, current episode mixed, moderate F31.62 [facility] [address] [place] [id number] [place] [address] Jan, Bipolar disorder, current episode mixed, moderate F31.62 [facility] [address] 097720- 5684 Jan, Bilateral low back pain without sciatica M54.5 [facility] [address] [id number] Jan, Dental caries K02.9 and Dental examination Z01.20 [facility] [address] [id number] Jan, Encounter for dental examination and cleaning without abnormal findings Z01.20 [facility] [address] [place] [id number] [place] [address] 77786- 0833 Jan, Bipolar disorder, current episode mixed, moderate F31.62 and Generalized anxiety disorder F41.1 [facility] [address] 96038- 8823 Dec, [facility] [address] [place] [id number] [place] [address] 79780- 5367 Dec, Bipolar disorder, current episode mixed, moderate F31.62 and Generalized anxiety disorder F41.1 [facility] [address] [place] [id number] [place] [address] 63975- 4181 Dec, Other fatigue R53.83 and Orthostatic hypotension I95.1 [facility] [address] [id number] Nov, Dental examination Z01.20 [facility] [address] [place] [id number] [place] [address] 91953 -5358 Nov, Bronchitis J40 [facility] [address] [place] [address]11[address]- 2546 Oct, Generalized anxiety disorder F41.1 [facility] [address] [place] [id number] [place] [address] 81300- 1313 14 Sep, 2016 Bipolar disorder, current episode mixed, moderate F31.62 and Generalized anxiety disorder F41.1 [facility] [address] [place] [id number] [place] [address] 49003- 0534 02 Sep, 2016 Bipolar disorder, current episode mixed, moderate F31.62 and Generalized anxiety disorder F41.1 [facility] [address] [place] [address] 84325 -3768 08 Jul, 2016 Upper respiratory tract infection, unspecified type J06.9 [facility] [address] [place] [id number] [place] [address] 68750- 4797 Jun, Bipolar disorder, current episode mixed, moderate F31.62 and Generalized anxiety disorder F41.1 [facility] [address] [place] [id number] [place] [address] 07013- 0705 Apr, [facility] [address] [place] [id number] [place] [address] 44834- 0588 Apr, Encounter for test, result positive Z32.01 [facility] [address] [place] [id number] [place] [address] 45809- 4058 March, [facility] [address] [place] [id number] [place] [address] 46994- 2238 March, Bipolar disorder, current episode mixed, moderate F31.62 and Generalized anxiety disorder F41.1 [facility] [address] [place] [id number] [place] [address] 48668- 7187 March, Bipolar disorder, current episode mixed, moderate F31.62 and Generalized anxiety disorder F41.1 [facility] [address] [place] [id number] [place] [address] 14154- 9747 March, [facility] [address] [place] [id number] [place] [address] 16437- 9134 March, [facility] [address] [place] [id number] [place] [address] 28216- 3855 Feb, [facility] [address] [place] [id number] [place] [address] 90262- 3060 Feb, [facility] [address] [place] [id number] [place] [address] 75061- 4971 Feb, Bipolar disorder, current episode mixed, moderate F31.62 and Generalized anxiety disorder F41.1 [facility] [address] [place] [id number] [place] [address] 79465- 2049 Jan, Abdominal pain R10.9 [facility] [address] [place] [id number] [place] [address] 76091- 9329 Jan, [facility] [address] [place] [id number] [place] [address] 31455- 2222 Dec, Dental examination Z01.20 [facility] [address] [place] [id number] [place] [address] 43547- 1521 Dec, Dental examination Z01.20 and Dental caries K02.9 [facility] [address] [place] [id number] [place] [address] 54127- 3819 Dec, Bipolar disorder, current episode mixed, moderate F31.62 and Generalized anxiety disorder F41.1 [facility] [address] [place] [id number] [place] [address] 58513- 2926 Dec, [facility] [address] [place] [id number] [place] [address] 52769- 5320 Nov, Bipolar disorder, current episode mixed, moderate F31.62 ; Generalized anxiety disorder F41.1 and Seizure-like activity R56.9 [facility] [address] [place] [id number] [place] [address] 21554- 8974 Oct, [facility] [address] [place] [id number] [place] [address] 39353- 0234 Oct, Bipolar disorder, current episode mixed, moderate F31.62 [facility] [address] [place] [id number] [place] [address] 11665- 3426 14 Oct, 2015 Well woman exam Z01.419 [...] Tobacco use Z72.0 and Hot flashes N95.[address] 42196- 6001 09 Oct, 2015 Seizure-like activity R56.9 and Irregular periods N92.[address] 39463- 1494 07 Oct, 2015 Bipolar disorder, current episode mixed, moderate F31.62 ; Generalized anxiety disorder F41.1 and Underweight R63.[address] 16330- 1904 Oct, [address] 95053- 4764 Oct, Generalized anxiety disorder F41.1 and Unspecified mood [ affective] disorder F39 [facility] [address] 71200 -7440 Oct, Back pain M54.9 and Anxiety F41.[address] 11839- 6845 Oct, [facility] [address] [place] [address] 00357 -5496 Sep, Arm pain, left M79.602 [facility] [address] [place] [address] 51453- 2297 Sep, [facility] [address] [place] [address] Sep, Dental examination Z01.20 and Dental caries K02.9 [facility] [address] [place] [id number] [place] [address] 37646- 1196 Sep, Generalized anxiety disorder F41.1 and Unspecified episodic mood disorder F39 [facility] [address] [place] [id number] [place] [address] 03813- 0840 Sep, Bilateral low back pain without sciatica M54.5 and Seizure- like activity R56.9 [facility] [address] [place] [id number] [place] [address] 88458- 5954 Aug, [facility] [address] [place] [id number] [place] [address] 47699- 0393 Aug, [facility] [address] [place] [id number] [place] [address] 35343- 8973 Aug, [facility] [address] [place] [id number] [place] [address] 66044- 7065 Aug, Visual changes H53.9 and Bilateral low back pain without sciatica M54.5 [facility] [address] [place] [id number] [place] [address] 54179- 4156 Jul, [facility] [address] [place] [address] 74247- 4636 Jun, Bipolar I disorder, most recent episode (or current) mixed, moderate 296.62 ; Generalized anxiety disorder 300.02 and High risk medication use V58.69 [facility] [address], [place] [address]- 0390 Jun, [facility] [address] [place] [id number] [place] [address] 91591- 2332 May, [facility] [address] [place] [address] 08335- 8523 May, Bipolar I disorder, most recent episode (or current) mixed, moderate 296.62 and Generalized anxiety disorder 300.02 [facility] [address] [address] May, Dental examination V72.2 [facility] [address] [place] [id number] [place] [address] 152232- 2582 March, Bipolar I disorder, most recent episode (or current) mixed, moderate 296.62 and Generalized anxiety disorder 300.02 [facility] [address] [place] [id number] [place] [address] 233368- 6637 March, [facility] [address] [place] [id number] [place] [address] 02682- 5966 March, [facility] [address] [place] [id number] [place] [address] 62196- 2301 March, Underweight 783.22 ; Hand pain, right 729.5 and Reflux gastritis 535.40 [facility] [address] [place] [address] [address]- 3576 Feb, [facility] [address] [place] [id number] [place] [address] 86393042- 2306 Feb, [facility] [address], [place] [address]- 1980 18 Jan, 2015 [facility] [address] [place] [address] 6936 18 Jan, 2015 [facility] [address], [place] [address]- 9036 16 Jan, 2015 [facility] [address], [place] [address]- 5156 16 Jan, 2015 [facility] [address], [place] [address]- 4851 Jan, [facility] [address], [place] [address]- 4426 Jan, [facility] [address], [place] [address]- 5056 05 Jan, 2015 [facility] [address] [place] [id number] [place] [address]- 3084 05 Jan, 2014 [facility] [place] [facility] [address] [id number] [place] [address]- 3865 Jan, 2014 [facility] [place] [facility] [address] [facility] [id number] [place] [address]- 2823 Jan, 2014 [facility] [place] [facility] [address] [facility] [id number] [place] [address]- 3155 Jan, 2014 [facility] [place] [facility] [address] [id number] [place] [address]- 9311 Jan, [facility] [place] [facility] [address] [facility] [id number] [place] [address]- 2291 Dec, 2014 [facility] [place] [facility] [address] [facility] [id number] [place] [address]- 0348 20 Dec, 2014 [facility] [place] [facility] [address] [facility] [id number] [place] [address]- 0940 19 Dec, 2014 [facility] [place] [facility] [address] [facility] [id number] [place] [address]- 4152 19 Dec, 2014 [facility] [place] [facility] [address] [facility] [id number] [place] [address]- 9969 18 Dec, 2014 [facility] [place] [facility] [address] [facility] [id number] [place] [address]- 8979 17 Dec, 2014 [facility] [place] [facility] [address] [facility] [id number] [place] [address]- 5119 17 Dec, 2014 [facility] [place] [facility] [address] [facility] [id number] [place] [address]- 9255 16 Dec, 2014 [facility] [place] [facility] [address] [facility] [id number] [place] [address]- 3656 16 Dec, 2014 [facility] [place] [facility] [address] [facility] [id number] [address]- 5233 05 Dec, 2014 [facility] [place] [facility] [address] [facility] [id number], [place] [address]- 5047 Dec, 2014 [facility] [place] [facility] [address] [id number] [place] [address]- 1066 Dec, 2014 [facility] [place] [facility] [address] [facility] [id number] [place] 5340 Dec, 2014 [facility] [place] [facility] [address] [facility] [id number] [place] [address]- 7081 Dec, 2014 [facility] [place] [facility] [address] [facility] [id number] [place] [address]- 6194 Dec, 2014 [facility] [place] [facility] [address] [id number] [place] [address]- 0744 Dec, 2014 [facility] [place] [facility] [address] [facility] [id number] [place] [address] Dec, 2014 [facility] [place] [facility] [address] [facility] [id number] [place] [address] Dec, 2014 [facility] [place] [facility] [address] [facility] [id number] [place] [address] Dec, [facility] [place] [facility] [address] [facility] [id number] [place] [address] Nov, [facility] [place] [facility] [address] [facility] [id number], [place] [address] Nov, [facility] [place] [facility] [address] [facility] [id number], [place] [address] Nov, [facility] [place] [facility] [address] [facility] [id number], [place] [address] Nov, [facility] [place] [facility] [address] [facility] [id number] [place] [address] Nov, [facility] [place] [facility] [address] [facility] [id number] [place] [address] Nov, [facility] [place] [facility] [address] [id number] [id number] Nov, [facility] [place] [facility] [address] [id number] [place] [address] Nov, [facility] [address] [id number] [place] [address] Nov, [facility] [address] [id number] [place] [id number] Nov, [facility] [address] [id number] [place] [address] Nov, [facility] [address] [id number] [place] [address] Nov, [facility] [address] [id number] [place] [address] Oct, [facility] [address] [id number] [place] [address] Oct, [facility] [address] [id number] [place] [address] 95[address] Oct, [facility] [address] [id number] [place] [address] Oct, [facility] [address] [id number] [place] [address] Oct, [facility] [address] [id number] [place] [address]44 29 Oct, 2014 [facility] [address] [id number] [place] [address]2 Oct, [facility] [place] [facility] [address] [id number] [place] [address] 48[address] Oct, [facility] [place] [facility] [address] [id number] [place] [address]- 4[address] 17 Oct, 2014 [facility] [place] [facility] [address] [id number] [place] [address] 17 Oct, 2014 [facility] [place] [facility] [address] [id number] [place] [address]65 Oct, [facility] [place] [facility] [address] [id number] [place] [address] 3534 Oct, [facility] [place] [facility] [address] [id number] [place] [address] 2459 Sep, [facility] [place] [facility] [address] [id number] [place] [address] 4776 Sep, [facility] [place] [facility] [address] [id number] [place] [address] 4164 Sep, [facility] [place] [facility] [address] [id number] [place] [address]- 5462 Sep, [facility] [place] [facility] [address] [id number] [place] [address] 3660 Sep, [facility] [place] [facility] [address] [id number] [place] [address]- 6785 Sep, [facility] [place] [facility] [address] [id number], [place] [address] 365[address] Sep, [facility] [place] [facility] [address] [id number] [place] [address] 36[address] Sep, [facility] [place] [facility] [address] [id number], [place] [address] 8315 Aug, [facility] [place] [facility] [address] [id number], [place] [address] 8820 Aug, [facility] [place] [facility] [address] [id number], [place] [address] 5[address] Aug, [facility] [place] [facility] [address] [id number], [place] [address]- 4869 Aug, [facility] [place] [facility] [address] [id number], [place] [address]- 0718 Aug, [facility] [place] [facility] [address] [id number] [address] Aug, [facility] [place] [facility] [address] [id number] [place] [address]- 8666 08 Aug, 2014 [facility] [place] [facility] [address] [id number] [place] [address]- 8196 08 Aug, 2014 [facility] [place] [facility] [address] [id number] [place] [address]- 4535 Aug, [facility] [place] [facility] [address] [id number] [place] [address]- 4611 Aug, [facility] [place] [facility] [address] [id number] [place] [address]- 2536 Aug, [facility] [place] [facility] [address] [id number] [place] [address]- 6131 Aug, [facility] [place] [facility] [address] [id number] [place] [address]- 7172 Aug, [facility] [place] [facility] [address] [id number] [place] [address]- 1730 Jul, [facility] [place] [facility] [address] [id number] [place] [address]- 0735 Jul, [facility] [place] [facility] [address] [id number] [place] [address]- 4749 Jul, [facility] [place] [facility] [address] [id number] [place] [address]- 5460 Jul, [facility] [place] [facility] [address] [id number] [place] [address]- 6383 Jun, [facility] [place] [facility] [address] [id number] [place] [address]- 0976 Jun, [facility] [place] [facility] [address] [id number] [place] [address] 3407 Jun, [facility] [place] [facility] [address] [id number] [place] [address]- 0534 Jun, [facility] [place] [facility] [address] [id number] [place] [address]- 9012 Jun, [facility] [place] [facility] [address] [id number] [place] [address]- 6128 Jun, [facility] [place] [facility] [address] [id number] [place] [address]- 7561 May, [facility] [place] [facility] [address] [id number] [place] [address]- 2447 May, [facility] [place] [facility] [address] [id number] [place] [address]- 2933 May, [facility] [place] [facility] [address] [id number] [place] [address] 1941 May, [facility] [place] [facility] [address] [id number] [place] [address] 8791 Apr, [facility] [place] [facility] [address] [id number] [place] [address]- 4910 Apr, [facility] [place] [facility] [address] [id number] [place] [address]- 4115 March, [facility] [place] [facility] [address] [id number] [place] [address]- 2431 March, [facility] [place] [facility] [address] [id number] [place] [address]- 3983 March, [facility] [place] [facility] [address] [id number] [place] [address] 8644 March, [facility] [place] [facility] [address] [id number] [place] [address]- 9155 March, [facility] [place] [facility] [address] [id number] [place] [address]- 0964 March, [facility] [place] [facility] [address] [id number] [place] [address]- 9194 Feb, [facility] [place] [facility] [address] [id number] [place] [address]- 6683 Feb, [facility] [place] [facility] [address] [id number], [place] [address]- 0799 Dec, [facility] [place] [facility] [address] [id number] [place] [address]- 0912 Dec, [facility] [place] [facility] [address] [id number] [place] [address]- 9915 Nov, [facility] [place] [facility] [address] [id number] [place] [address]- 6670 Nov, [facility] [place] [facility] [address] [id number] [place] [address]- 8098 Sep, [facility] [place] [facility] [address] [id number] [place] [address]- 3817 Sep, [facility] [place] [facility] [address] [id number] [place] [address]- 0817 Sep, [facility] [place] [facility] [address] [facility] [id number] [place] [address]- 5638 Sep, [facility] [place] [facility] [address] [id number] [place] [address]- 6178 Sep, [facility] [place] [facility] [address] [facility] [id number] [place] [address]- 5627 Sep, [facility] [place] [facility] [address] [facility] [id number] [place] [address]- 3053 Sep, [facility] [place] [facility] [address] [id number], [place] [address]- 5430 Aug, [facility] [place] [facility] [address] [id number], [place] [address]- 9663 Aug, [facility] [place] [facility] [address] [id number], [place] [address]- 9688 Aug, [facility] [place] [facility] [address] [id number] [place] [address]- 1595 Aug, [facility] [place] [facility] [address] [facility] [id number], [place] [address]- 2944 Aug, [facility] [place] [facility] [address] [id number] [place] [address]- 0596 Aug, [facility] [place] [facility] [address] [id number] [place] [address]- 2843 Jul, [facility] [place] [facility] [address] [id number] [place] [address]- 4986 Jul, [facility] [place] [facility] [address] [id number] [place] [address]- 1106 16 Jul, 2013 [facility] [place] [facility] [address] [id number] [place] [address]- 2289 Jul, [facility] [place] [facility] [address] [id number] [place] [address]- 1795 Jun, [facility] [place] [facility] [address] [id number] [place] [address]- 5320 Jun, [facility] [place] [facility] [address] [id number] [place] [address]- 3536 Jun, [facility] [place] [facility] [address] [id number] [place] [address]- 4265 Jun, [facility] [place] [facility] [address] [id number] [place] [address]- 6325 Jun, [facility] [place] [facility] [address] [id number] [place] [address]- 2287 Jun, [facility] [place] [facility] [address] [id number] [place] [address]- 0974 Jun, [facility] [place] [facility] [address] [id number] [place] [address]- 8498 May, [facility] [place] [facility] [address] [id number] [place] [address]- 1581 May, [facility] [place] [facility] [address] [id number] [place] [address]- 2546 May, [facility] [place] [facility] [address] [id number] [place] [address]- 6088 15 May, 2013 [facility] [place] [facility] [address] [id number] [place] [address]- 0930 13 May, 2013 [facility] [place] [facility] [address] [id number] [place] [address]- 3542 05 May, 2013 [facility] [place] [facility] [address] [id number] [place] [address]- 4480 03 May, 2013 [facility] [place] [facility] [address] [id number] [place] [address]- 0021 28 Apr, 2013 [facility] [place] [facility] [address] [id number] [place] [address]- 5701 27 Apr, 2013 [facility] [place] [facility] [address] [id number] [place] [address]- 1173 27 Apr, 2013 [facility] [place] [facility] [address] [id number] [place] [address]- 3899 26 Apr, 2013 [facility] [place] [facility] [address] [id number] [place] [address]- 8172 20 Apr, 2013 [facility] [place] [facility] [address] [id number] [place] [address]- 2769 18 Apr, 2013 [facility] [place] [facility] [address] [id number] [place] [address]- 3763 18 Apr, 2013 [facility] [place] [facility] [address] [id number] [place] [address]- 4981 18 Apr, 2013 [facility] [place] [facility] [address] [id number], [place] [address]- 2591 17 Apr, 2013 [facility] [place] [facility] [address] [id number] [place] [address]- 4612 14 Apr, 2013 [facility] [place] [facility] [address] [id number] [place] [address]- 2443 14 Apr, 2013 [facility] [place] [facility] [address] [id number] [place] [address]- 1931 11 Apr, 2013 [facility] [place] [facility] [address] [id number] [place] [address]- 7310 10 Apr, 2013 [facility] [address] [id number] [place] [address]- 8400 09 Apr, 2013 [facility] [address] [id number] [place] [address]- 6068 Apr, [facility] [address] [id number] [place] [address]- 4819 Apr, [facility] [address] [id number] [place] [address]- 7472 Apr, [facility] [address] [id number] [place] [address]- 6857 Apr, [facility] [address] [id number] [place] [address]- 3240 Apr, [facility] [address] [id number] [place] [address]- 0766 March, [facility] [address] [id number] [place] [address]- 6831 March, [facility] [address] [id number] [place] [address]- 8520 March, [facility] [address] [id number] [place] [address]- 6174 March, [facility] [address] [id number] [place] [address]- 4952 March, [facility] [address] [id number] [place] [address]- 8753 March, [facility] [place] [facility] [address] [id number] [place] [address]- 8807 March, [facility] [place] [facility] [address] [id number] [place] [address]- 3458 Feb, [facility] [address] [id number] [place] [address]- 4120 Feb, [facility] [address] [id number] [place] [address]- 3917 27 Jan, 2013 [facility] [address] [id number] [place] [address]- 1409 18 Jan, 2013 [facility] [address] [id number] [place] [address]- 4569 15 Jan, 2013 [facility] [address] [id number] [place] [address]- 6185 14 Jan, 2013 [facility] [address] [id number] [place] [address]- 1444 13 Jan, 2013 [facility] [address] [id number] [place] [address]- 0325 12 Jan, 2013 [facility] [address] [id number] [place] [address]- 8601 11 Jan, 2013 [facility] [address] [id number] [place] [address]- 0653 09 Jan, 2013 [facility] [address] [id number] [place] [address]- 7150 08 Jan, 2013 [facility] [address] [id number] [place] [address]- 6311 07 Jan, 2013 [facility] [address] [id number] [place] [address]- 1009 06 Jan, 2013 [facility] [address] [id number] [place] [address]- 2995 17 Nov, 2012 [facility] [address] [id number] [place] [address]- 5400 Oct, [facility] [place] [facility] [address] [id number] [place] [address]- 6710 Oct, [facility] [place] [facility] [address] [id number] [place] [address]- 8762 11 Oct, 2012 [facility] [address] [id number], [place] [address]- 2768 Oct, [facility] [place] [facility] [address] [id number] [place] [address]- 1577 Sep, [facility] [place] [facility] [address] [id number] [place] [address]- 7857 Sep, [facility] [place] [facility] [address] [facility] [id number] [place] [address]- 1288 Sep, [facility] [place] [facility] [address] [id number], [place] [address]- 0070 Sep, [facility] [place] [facility] [address] [id number] [place] [address]- 0135 Sep, [facility] [place] [facility] [address] [id number] [place] [address]- 3861 Sep, [facility] [place] [facility] [address] [id number] [place] [address]- 0617 Sep, [facility] [place] [facility] [address] [id number], [place] [address]- 1372 Sep, [facility] [place] [facility] [address] [id number], [place] [address]- 6233 Sep, [facility] [place] [facility] [address] [id number], [place] [address]- 1786 Sep, [facility] [place] [facility] [address] [id number], [place] [address]- 8020 Sep, [facility] [place] [facility] [address] [id number], [place] [address]- 5707 Aug, [facility] [place] [facility] [address] [id number], [place] [address]- 4551 Aug, [facility] [place] [facility] [address] [facility] [id number], [place] [address]- 7456 Aug, [facility] [place] [facility] [address] [id number], [place] [address]- 7390 Jul, [facility] [place] [facility] [address] [id number] [place] [address]- 9673 25 Jul, 2012 [facility] [address] [id number] [place] [address]- 5566 19 Jul, 2012 [facility] [address] [id number] [place] [address]- 9426 17 Jul, 2012 [facility] [address] [id number] [place] [address]- 0818 20 Jun, 2012 [facility] [address] [id number] [place] [address]- 7934 16 Jun, 2012 [facility] [address] [id number] [place] [address]- 8027 15 Jun, 2012 [facility] [address] [id number] [place] [address]- 7079 15 Jun, 2012 [facility] [address] [id number] [place] [address]- 4554 13 Jun, 2012 [facility] [address] [id number] [place] [address]- 4632 18 Mar, 2012 [facility] [address] [id number] [place] [address]- 8729 04 Feb, 2012 [facility] [address] [id number] [place] [address]- 2076 28 Jan, 2012 [facility] [place] [facility] [address] [id number] [place] [address]- 9780 27 Jan, 2012 [facility] [address] [id number] [place] [address]- 5244 22 Jan, 2012 [facility] [place] [facility] [address] [id number] [place] [address]- 5758 14 Jan, 2012 [facility] [place] [facility] [address] [id number] [place] [address]- 2304 14 Jan, 2012 [facility] [place] [facility] [address] [id number] [place] [address]- 7595 14 Jan, 2012 [facility] [place] [facility] [address] [id number] [place] [address]- 6469 28 Dec, 2011 [facility] [place] [facility] [address] [id number] [place] [address]- 3386 27 Dec, 2011 [facility] [place] [facility] [address] [id number] [place] [address]- 0136 23 Dec, 2011 [facility] [place] [facility] [address] [id number] [place] [address]- 9576 21 Dec, 2011 [facility] [place] [facility] [address] [id number] [place] [address]- 0326 20 Dec, 2011 [facility] [place] [facility] [address] [id number] [place] [address]- 0116 19 Dec, 2011 [facility] [place] [facility] [address] [id number] [place] [address]- 4046 17 Dec, 2011 [facility] [place] [facility] [address] [id number] [place] [address]- 3052 16 Dec, 2011 [facility] [place] [facility] [address] [id number] [place] [address]- 7651 Nov, [facility] [place] [facility] [address] [id number] [place] [address]- 3869 Oct, [facility] [place] [facility] [address] [id number] [place] [address]- 6052 18 Sep, 2011 [facility] [place] [facility] [address] [id number] [place] [address]- 1365 18 Sep, 2011 [facility] [place] [facility] [address] [id number] [place] [address]- 8006 17 Sep, 2011 [facility] [place] [facility] [address] [facility] [id number] [place] [address]- 3470 17 Sep, 2011 [facility] [place] [facility] [address] [facility] [id number] [place] [address]- 6756 07 Sep, 2011 [facility] [place] [facility] [address] [facility] [id number] [place] [address]- 2546 Sep, [facility] [address] [facility] [id number] [place] [address] Jan, [facility] [address] [facility] [id number] [place] [address]- 8916 Apr, IMMUNIZATIONS No Known Immunizations SOCIAL HISTORY Never Assessed REASON FOR VISIT EMR-[facility] [place] PLAN OF CARE VITAL SIGNS MEDICATIONS Unknown [...]
--- OUTSIDE RECORDS SUMMARY | 2019-03-04 16:42 | XMS REPORT ---
Author Author Migration, Doctor Organization [facility] Address Unknown Phone Unavailable Care Team Providers Care Callisthenics Instructor Name Role Phone Migration, Doctor Unavailable Unavailable PROBLEMS Type Condition ICD9-CM Code NPI66-SZ Code Onset Dates Condition Status SNOMED Code Problem Generalized anxiety disorder F41.1 Active 64794915 Problem Bipolar disorder, current episode mixed, moderate F31.62 Active 896189460 Problem Acute non intractable tension-type headache G44.209 Active 726079990 Problem Constipation K59.00 Active 42276381 Problem Post traumatic stress disorder F43.10 Active 38435680 Problem Borderline personality disorder F60.3 Active 99331415 Problem Endometriosis N80.9 Active 121822322 Problem Acute right-sided low back pain with right-sided sciatica M54.41 Active 166294398 ALLERGIES No Information ENCOUNTERS Encounter Location Date Diagnosis [place] [address] [address] Jan, Bipolar disorder, current episode mixed, moderate F31.62 [place] [address] 10570- 7595 Dec, Bipolar disorder, current episode mixed, moderate F31.62 [place] [address] 32813- 7851 Nov, Bipolar disorder, current episode mixed, moderate F31.62 [facility] [address] [place] [id number] [place] [address] 88285 -4989 Oct, Sore throat J02.9 [facility] [address] [address] Oct, Abdominal pain R10.9 ; Low back pain M54.5 ; Left shoulder pain M25.512 and Constipation K59.00 [facility] [address] 20[address]- [address]996 Oct, Bipolar disorder, current episode mixed, moderate F31.62 ; Post traumatic stress disorder F43.10 and Borderline personality disorder F60.3 [facility] [address] [place] [id number] [place] [address] 80260- 9253 Sep, Bipolar disorder, current episode mixed, moderate F31.62 [place] [address] 80778- 8492 Aug, Bipolar disorder, current episode mixed, moderate F31.62 [place] [address] [place] [id number] [place] [address] 48723- 7147 Jul, Thrombophlebitis I80.9 and Pelvic pain R10.2 [place] [address] [place] [id number] [place] [address] 35083- 9577 05 Jul, 2018 Bipolar disorder, current episode mixed, moderate F31.62 ; Post traumatic stress disorder F43.10 and Borderline personality disorder F60.3 [place] [address] [place] [id number] [place] [address] 71616- 8736 Jun, Bipolar disorder, current episode mixed, moderate F31.62 [place] [address] [place] [id number] [place] [address] 53118- 0459 May, Palpitations R00.2 [place] [address] [place] [id number] [place] [address] 75270- 1296 May, Palpitations R00.2 [place] [address] [place] [id number] [place] [address] 09445- 2473 May, Palpitations R00.2 and Frequent bowel movements R19.4 [place] [address] [place] [id number] [place] [address] 05667- 5036 May, Bipolar disorder, current episode mixed, moderate F31.62 ; Post traumatic stress disorder F43.10 and Borderline personality disorder F60.3 [facility] [id number] [place] [address] [id number] Apr, Dental examination Z01.20 [facility] [address], [place] [address] 15 Apr, 2018 [place] [address] [place] [id number] [place] [address] 75016- 5670 15 Apr, 2018 Dental examination Z01.20 [facility] [address] [place] [id number] [place] [address] 30742 -7789 15 Apr, 2018 Tooth pain K08.89 [place] [address] [place] [id number] [place] [address] 24295- 4697 06 Apr, 2018 Bipolar disorder, current episode mixed, moderate F31.62 ; Post traumatic stress disorder F43.10 and Borderline personality disorder F60.3 [facility] [address] [place] [id number] [place] [address] 68510 -3507 18 Mar, 2018 Abdominal pain R10.9 ; UTI symptoms R39.9 and Other microscopic hematuria R31.29 [place] [address] [place] [id number] [place] [address] 83919- 2392 18 Mar, 2018 [place] [address] [place] [id number] [place] [address] 63230- 3086 March, Bipolar disorder, current episode mixed, moderate F31.62 ; Post traumatic stress disorder F43.10 and Borderline personality disorder F60.3 [place] [address] [place] [id number] [place] [address] 40674- 8042 30 Feb, 2018 Encounter for immunization Z23 [place] [address] [place] [id number] [place] [address] 22577- 1584 Feb, Bipolar disorder, current episode mixed, moderate F31.62 ; Post traumatic stress disorder F43.10 and Borderline personality disorder F60.3 [place] [address] [place] [id number] [place] [address] 67672- 0816 Feb, Bipolar disorder, current episode mixed, moderate F31.62 ; Post traumatic stress disorder F43.10 ; Borderline personality disorder F60.3 and Other long-term (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 Z79.899 [place] [address] [place] [address]- 3605 30 Jan, 2018 Encounter for immunization Z23 [place] [id number] 03093- 2640 Jan, [facility] [address] 00308- 4618 Jan, Bipolar disorder, current episode mixed, moderate F31.62 [facility] [address] 27682 -0073 Jan, Lumbar back pain M54.5 [place] [address] [place] [id number] [place] [address] 66298- 3619 Dec, Low back pain M54.5 [place] [address] [place] [id number] [place] [address] 20975- 2147 Dec, Bipolar disorder, current episode mixed, moderate F31.62 [place] [address] [place] [id number] [place] [address] 16230- 5132 Dec, Generalized anxiety disorder F41.1 and Bipolar disorder, current episode mixed, moderate F31.62 [facility] [address] [place] [id number] [place] [address] 80636 -9887 Nov, Acute non intractable tension-type headache G44.209 [place] [address] [place] [id number] [place] [address] 43895- 5240 Nov, Bipolar disorder, current episode mixed, moderate F31.62 ; Post traumatic stress disorder F43.10 and Borderline personality disorder F60.3 [place] [address] [place] [id number] [place] [address] 51797- 9474 Nov, Bipolar disorder, current episode mixed, moderate F31.62 [facility] [address] [place] [id number] [place] [address] 16903 -0852 Nov, Abdominal pain R10.9 ; History of PCOS Z87.42 ; History of endometriosis Z87.42 and Pelvic pain R10.2 [place] [address] [place] [id number] [place] [address]- 9142 Nov, [facility] [address] [place] [id number] [place] [address] 85785 -9938 Oct, History of PCOS Z87.42 ; History of endometriosis Z87.42 and Pain R52 [facility] [address] [place] [id number] [place] [address] 17026- 7838 Oct, Bipolar disorder, current episode mixed, moderate F31.62 ; Post traumatic stress disorder F43.10 and Borderline personality disorder F60.3 [facility] [address] [place] [id number] [place] [address] 27293- 2109 Oct, Bipolar disorder, current episode mixed, moderate F31.62 [facility] [address] [place] [id number] [place] [address] 22746- 9890 Sep, Bipolar disorder, current episode mixed, moderate F31.62 ; Post traumatic stress disorder F43.10 ; Borderline personality disorder F60.3 and Other long-term (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 Z79.899 [facility] [address] [place] [id number] [place] [address] 98436- 8324 17 Sep, 2017 Bipolar disorder, current episode mixed, moderate F31.62 [facility] [address] [place] [id number] [place] [address] 83641 -5910 Sep, Endometriosis N80.9 and Acute right-sided low back pain with right-sided sciatica M54.41 [facility] [address] [place] [id number] [place] [address] 57202- 7645 Aug, [facility] [address] [place] [id number] [place] [address] 89689- 9774 Aug, Bipolar disorder, current episode mixed, moderate F31.62 ; Post traumatic stress disorder F43.10 and Borderline personality disorder F60.3 [facility] [id number] [place] [address] 50197- 1952 Aug, Bipolar disorder, current episode mixed, moderate F31.62 ; Post traumatic stress disorder F43.10 and Borderline personality disorder F60.3 [facility] [address], [place] [address]- 9551 13 Jul, 2017 Bipolar disorder, current episode mixed, moderate F31.62 ; Post traumatic stress disorder F43.10 and Borderline personality disorder F60.3 [facility] [address], [place] [address] 11 Jul, 2017 Pharyngitis, unspecified etiology J02.9 and Streptococcal pharyngitis J02.0 [facility] [address] [place] [address] 72481- 4306 16 Jun, 2017 Bipolar disorder, current episode mixed, moderate F31.62 ; Post traumatic stress disorder F43.10 and Borderline personality disorder F60.3 [facility] [address], [place] [address]- 3207 19 May, 2017 [facility] [address] [place] [id number] [place] [address] 19113- 6536 May, [facility] [address] [place] [id number] [place] [address] 74228- 0647 May, Bipolar disorder, current episode mixed, moderate F31.62 and Generalized anxiety disorder F41.1 [facility] [id number] [place] [address] 75260- 4942 March, Bipolar disorder, current episode mixed, moderate F31.62 and Generalized anxiety disorder F41.1 [facility] [id number] [place] [address] 08089- 8490 March, Pelvic pain R10.2 [facility] [id number] [place] [address] 14285- 9523 March, [facility] [address] [place] [id number] [place] [address] 71603- 1433 05 Feb, 2017 Bipolar disorder, current episode mixed, moderate F31.62 and Generalized anxiety disorder F41.1 [facility] [id number] [place] [address] 56157- 7645 Jan, [facility] [id number] [place] [address] 23169- 6423 Jan, Bipolar disorder, current episode mixed, moderate F31.62 [facility] [address] [place] [id number] [place] [address]297 Jan, Bipolar disorder, current episode mixed, moderate F31.62 [facility] [address] 472971- 1174 Jan, Bilateral low back pain without sciatica M54.5 [facility] [address] [id number] Jan, Dental caries K02.9 and Dental examination Z01.20 [facility] [address] [id number] Jan, Encounter for dental examination and cleaning without abnormal findings Z01.20 [facility] [address] [place] [id number] [place] [address] 59258- 3626 Jan, Bipolar disorder, current episode mixed, moderate F31.62 and Generalized anxiety disorder F41.1 [facility] [address] 65042- 2126 Dec, [facility] [address] [place] [id number] [place] [address] 41804- 2597 Dec, Bipolar disorder, current episode mixed, moderate F31.62 and Generalized anxiety disorder F41.1 [facility] [address] [place] [id number] [place] [address] 96888- 9462 Dec, Other fatigue R53.83 and Orthostatic hypotension I95.1 [facility] [address] [id number] Nov, Dental examination Z01.20 [facility] [address] [place] [id number] [place] [address] 28988 -5108 Nov, Bronchitis J40 [facility] [address] [place] [phone]- 2546 Oct, Generalized anxiety disorder F41.1 [facility] [address] [place] [id number] [place] [address] 20312- 7986 14 Sep, 2016 Bipolar disorder, current episode mixed, moderate F31.62 and Generalized anxiety disorder F41.1 [facility] [address] [place] [id number] [place] [address] 10556- 6333 02 Sep, 2016 Bipolar disorder, current episode mixed, moderate F31.62 and Generalized anxiety disorder F41.1 [facility] [address] [place] [address] 73787 -0080 08 Jul, 2016 Upper respiratory tract infection, unspecified type J06.9 [facility] [address] [place] [id number] [place] [address] 87686- 8737 Jun, Bipolar disorder, current episode mixed, moderate F31.62 and Generalized anxiety disorder F41.1 [facility] [address] [place] [id number] [place] [address] 00774- 7929 Apr, [facility] [address] [place] [id number] [place] [address] 33975- 1043 Apr, Encounter for test, result positive Z32.01 [facility] [address] [place] [id number] [place] [address] 34818- 4202 March, [facility] [address] [place] [id number] [place] [address] 84329- 6815 March, Bipolar disorder, current episode mixed, moderate F31.62 and Generalized anxiety disorder F41.1 [facility] [address] [place] [id number] [place] [address] 14574- 0455 March, Bipolar disorder, current episode mixed, moderate F31.62 and Generalized anxiety disorder F41.1 [facility] [address] [place] [id number] [place] [address] 46521- 3626 March, [facility] [address] [place] [id number] [place] [address] 58326- 5939 March, [facility] [address] [place] [id number] [place] [address] 60344- 2715 Feb, [facility] [address] [place] [id number] [place] [address] 79166- 5752 Feb, [facility] [address] [place] [id number] [place] [address] 58636- 7947 Feb, Bipolar disorder, current episode mixed, moderate F31.62 and Generalized anxiety disorder F41.1 [facility] [address] [place] [id number] [place] [address] 20460- 9296 Jan, Abdominal pain R10.9 [facility] [address] [place] [id number] [place] [address] 50450- 8453 Jan, [facility] [address] [place] [id number] [place] [address] 40846- 8316 Dec, Dental examination Z01.20 [facility] [address] [place] [id number] [place] [address] 47057- 7867 Dec, Dental examination Z01.20 and Dental caries K02.9 [facility] [address] [place] [id number] [place] [address] 00266- 8536 Dec, Bipolar disorder, current episode mixed, moderate F31.62 and Generalized anxiety disorder F41.1 [facility] [address] [place] [id number] [place] [address] 54397- 9407 Dec, [facility] [address] [place] [id number] [place] [address] 25029- 1638 Nov, Bipolar disorder, current episode mixed, moderate F31.62 ; Generalized anxiety disorder F41.1 and Seizure-like activity R56.9 [facility] [address] [place] [id number] [place] [address] 29018- 4883 Oct, [facility] [address] [place] [id number] [place] [address] 38498- 0022 Oct, Bipolar disorder, current episode mixed, moderate F31.62 [facility] [address] [place] [id number] [place] [address] 72357- 4443 14 Oct, 2015 Well woman exam Z01.419 [...] use Z72.0 and Hot flashes N95.[address] 13453- 6088 09 Oct, 2015 Seizure-like activity R56.9 and Irregular periods N92.[address] 89943- 3273 07 Oct, 2015 Bipolar disorder, current episode mixed, moderate F31.62 ; Generalized anxiety disorder F41.1 and Underweight R63.[address] 28870- 0395 Oct, [address] 06058- 7452 Oct, Generalized anxiety disorder F41.1 and Unspecified mood [ affective] disorder F39 [facility] [address] 26621 -2572 Oct, Back pain M54.9 and Anxiety F41.[address] 04582- 0757 Oct, [facility] [address] [place] [address] 90561 -4605 Sep, Arm pain, left M79.602 [facility] [address] [place] [address] 38573- 6398 Sep, [facility] [address] [place] [address] Sep, Dental examination Z01.20 and Dental caries K02.9 [facility] [address] [place] [id number] [place] [address] 88882- 7762 Sep, Generalized anxiety disorder F41.1 and Unspecified episodic mood disorder F39 [facility] [address] [place] [id number] [place] [address] 72945- 8470 Sep, Bilateral low back pain without sciatica M54.5 and Seizure- like activity R56.9 [facility] [address] [place] [id number] [place] [address] 65527- 0971 Aug, [facility] [address] [place] [id number] [place] [address] 76242- 8115 Aug, [facility] [address] [place] [id number] [place] [address] 81320- 2532 Aug, [facility] [address] [place] [id number] [place] [address] 12715- 3905 Aug, Visual changes H53.9 and Bilateral low back pain without sciatica M54.5 [facility] [address] [place] [id number] [place] [address] 06379- 3067 Jul, [facility] [address] [place] [address] 99610- 5432 Jun, Bipolar I disorder, most recent episode (or current) mixed, moderate 296.62 ; Generalized anxiety disorder 300.02 and High risk medication use V58.69 [facility] [address], [place] [address]- 5236 Jun, [facility] [address] [place] [id number] [place] [address] 54354- 5842 May, [facility] [address] [place] [address] 45843- 1938 May, Bipolar I disorder, most recent episode (or current) mixed, moderate 296.62 and Generalized anxiety disorder 300.02 [facility] [address] [id number] May, Dental examination V72.2 [facility] [address] [place] [id number] [place] [address] 318587- 6459 March, Bipolar I disorder, most recent episode (or current) mixed, moderate 296.62 and Generalized anxiety disorder 300.02 [facility] [address] [place] [id number] [place] [address] 079710- 9910 March, [facility] [address] [place] [id number] [place] [address] 83035- 8946 March, [facility] [address] [place] [id number] [place] [address] 99909- 6730 March, Underweight 783.22 ; Hand pain, right 729.5 and Reflux gastritis 535.40 [facility] [address] [id number] [address]- 7332 Feb, [facility] [address] [place] [id number] [place] [address] [id number]- 8639 Feb, [facility] [address], [place] [address]- 6956 18 Jan, 2015 [facility] [address] [place] [id number]- 4826 18 Jan, 2015 [facility] [address], [place] [address]- 3566 16 Jan, 2015 [facility] [address], [place] [address]- 0836 16 Jan, 2015 [facility] [address], [place] [address]- 8910 Jan, [facility] [address], [place] [address]- 1796 Jan, [facility] [address], [place] [address]- 1916 05 Jan, 2015 [facility] [address] [id number] [place] [address]- 4920 05 Jan, 2014 [facility] [place] [facility] [address] [id number] [place] [address]- 0830 Jan, 2014 [facility] [place] [facility] [address] [facility] [id number] [place] [address]- 7437 Jan, 2014 [facility] [place] [facility] [address] [facility] [id number] [place] [address]- 3331 Jan, 2014 [facility] [place] [facility] [address] [id number] [place] [address]- 7474 Jan, [facility] [place] [facility] [address] [facility] [id number] [place] [address]- 4045 Dec, 2014 [facility] [place] [facility] [address] [facility] [id number] [place] [address]- 7188 20 Dec, 2014 [facility] [place] [facility] [address] [facility] [id number] [place] [address]- 1180 19 Dec, 2014 [facility] [place] [facility] [address] [facility] [id number] [place] [address]- 6378 19 Dec, 2014 [facility] [place] [facility] [address] [facility] [id number] [place] [address]- 7364 18 Dec, 2014 [facility] [place] [facility] [address] [facility] [id number] [place] [address]- 1038 17 Dec, 2014 [facility] [place] [facility] [address] [facility] [id number] [place] [address]- 4221 17 Dec, 2014 [facility] [place] [facility] [address] [facility] [id number] [place] [address]- 3418 16 Dec, 2014 [facility] [place] [facility] [address] [facility] [id number] [place] [address]- 1376 16 Dec, 2014 [facility] [place] [facility] [address] [facility] [id number] [address]- 9269 05 Dec, 2014 [facility] [place] [facility] [address] [facility] [id number] [address]- 6701 Dec, 2014 [facility] [place] [facility] [address] [id number] [place] [address]- 6094 Dec, 2014 [facility] [place] [facility] [address] [facility] [id number] [place]- 7250 Dec, 2014 [facility] [place] [facility] [address] [facility] [id number] [place] [address] Dec, 2014 [facility] [place] [facility] [address] [facility] [id number] [place] [address] Dec, 2014 [facility] [place] [facility] [address] [id number] [place] [address] Dec, 2014 [facility] [place] [facility] [address] [facility] [id number] [place] [address] Dec, 2014 [facility] [place] [facility] [address] [facility] [id number] [place] [address] Dec, 2014 [facility] [place] [facility] [address] [facility] [id number] [place] [address] Dec, [facility] [place] [facility] [address] [facility] [id number] [place] [address] Nov, [facility] [place] [facility] [address] [facility] [id number], [place] [address] Nov, [facility] [place] [facility] [address] [facility] [id number], [place] [address] Nov, [facility] [place] [facility] [address] [facility] [id number], [place] [address] Nov, [facility] [place] [facility] [address] [facility] [id number] [place] [address] Nov, [facility] [place] [facility] [address] [facility] [id number] [place] [address] Nov, [facility] [place] [facility] [address] [id number][place] [id number] Nov, [facility] [place] [facility] [address] [id number] [place] [address]- 4427 Nov, [facility] [address] [id number] [place] [address] Nov, [facility] [address] [id number] [place] [id number] Nov, [facility] [address] [id number] [place] [address] 100[address] Nov, [facility] [address] [id number] [place] [address]83 Nov, [facility] [address] [id number] [place] [address] Oct, [facility] [address] [id number] [place] [address] 6283 Oct, [facility] [address] [id number] [place] [address] 6198 Oct, [facility] [address] [id number] [place] [address] 0846 Oct, [facility] [address] [id number] [place] [address] 46[address] Oct, [facility] [address] [id number] [place] [address] 2892 29 Oct, 2014 [facility] [address] [id number] [place] [address] 8788 Oct, [facility] [place] [facility] [address] [id number] [place] [address] 9988 Oct, [facility] [place] [facility] [address] [id number] [place] [address] 0564 17 Oct, 2014 [facility] [place] [facility] [address] [id number] [place] [address]- 8156 17 Oct, 2014 [facility] [place] [facility] [address] [id number] [place] [address] 9990 Oct, [facility] [place] [facility] [address] [id number] [place] [address]- 7279 Oct, [facility] [place] [facility] [address] [id number] [place] [address]- 9973 Sep, [facility] [place] [facility] [address] [id number] [place] [address] 5728 Sep, [facility] [place] [facility] [address] [id number] [place] [address]- 5848 Sep, [facility] [place] [facility] [address] [id number] [place] [address]- 4992 Sep, [facility] [place] [facility] [address] [id number] [place] [address]- 1469 Sep, [facility] [place] [facility] [address] [id number] [place] [address]- 0741 Sep, [facility] [place] [facility] [address] [id number], [place] [address] 8[address] Sep, [facility] [place] [facility] [address] [id number] [place] [address]- 9789 Sep, [facility] [place] [facility] [address] [id number], [place] [address] 8958 Aug, [facility] [place] [facility] [address] [id number], [place] [address] 2[address] Aug, [facility] [place] [facility] [address] [id number], [place] [address]- 2661 Aug, [facility] [place] [facility] [address] [id number], [place] [address] 2796 Aug, [facility] [place] [facility] [address] [id number], [place] [address]- 5815 Aug, [facility] [place] [facility] [address] [id number][place] [address] Aug, [facility] [place] [facility] [address] [id number] [place] [address]- 3975 08 Aug, 2014 [facility] [place] [facility] [address] [id number] [place] [address]- 6869 08 Aug, 2014 [facility] [place] [facility] [address] [id number] [place] [address]- 8015 Aug, [facility] [place] [facility] [address] [id number] [place] [address]- 9287 Aug, [facility] [place] [facility] [address] [id number] [place] [address]- 4504 Aug, [facility] [place] [facility] [address] [id number] [place] [address]- 4274 Aug, [facility] [place] [facility] [address] [id number] [place] [address]- 1825 Aug, [facility] [place] [facility] [address] [id number] [place] [address]- 4393 Jul, [facility] [place] [facility] [address] [id number] [place] [address]- 2843 Jul, [facility] [place] [facility] [address] [id number] [place] [address]- 6697 Jul, [facility] [place] [facility] [address] [id number] [place] [address]- 4367 Jul, [facility] [place] [facility] [address] [id number] [place] [address]- 3903 Jun, [facility] [place] [facility] [address] [id number] [place] [address]- 9157 Jun, [facility] [place] [facility] [address] [id number] [place] [address]- 5657 Jun, [facility] [place] [facility] [address] [id number] [place] [address]- 8762 Jun, [facility] [place] [facility] [address] [id number] [place] [address]- 4519 Jun, [facility] [place] [facility] [address] [id number] [place] [address]- 4161 Jun, [facility] [place] [facility] [address] [id number] [place] [address] 1944 May, [facility] [place] [facility] [address] [id number] [place] [address]- 6969 May, [facility] [place] [facility] [address] [id number] [place] [address]- 0691 May, [facility] [place] [facility] [address] [id number] [place] [address]- 0087 May, [facility] [place] [facility] [address] [id number] [place] [address]- 5372 Apr, [facility] [place] [facility] [address] [id number] [place] [address]- 5628 Apr, [facility] [place] [facility] [address] [id number] [place] [address]- 0327 March, [facility] [place] [facility] [address] [id number] [place] [address]- 4808 March, [facility] [place] [facility] [address] [id number] [place] [address]- 5061 March, [facility] [place] [facility] [address] [id number] [place] [address]- 2473 March, [facility] [place] [facility] [address] [id number] [place] [address]- 2217 March, [facility] [place] [facility] [address] [id number] [place] [address]- 6298 March, [facility] [place] [facility] [address] [id number] [place] [address]- 5706 Feb, [facility] [place] [facility] [address] [id number] [place] [address]- 3064 Feb, [facility] [place] [facility] [address] [id number], [place] [address]- 6206 Dec, [facility] [place] [facility] [address] [id number] [place] [address]- 1378 Dec, [facility] [place] [facility] [address] [id number] [place] [address]- 3616 Nov, [facility] [place] [facility] [address] [id number] [place] [address]- 3134 Nov, [facility] [place] [facility] [address] [id number] [place] [address]- 9676 Sep, [facility] [place] [facility] [address] [id number] [place] [address]- 6425 Sep, [facility] [place] [facility] [address] [id number] [place] [address]- 8397 Sep, [facility] [place] [facility] [address] [facility] [id number] [place] [address]- 6529 Sep, [facility] [place] [facility] [address] [id number] [place] [address]- 6473 Sep, [facility] [place] [facility] [address] [facility] [id number] [place] [address]- 8909 Sep, [facility] [place] [facility] [address] [facility] [id number] [place] [address]- 9445 Sep, [facility] [place] [facility] [address] [id number], [place] [address]- 9043 Aug, [facility] [place] [facility] [address] [id number], [place] [address]- [address] Aug, [facility] [place] [facility] [address] [id number], [place] [address]- 7576 Aug, [facility] [place] [facility] [address] [id number] [place] [address]- 0437 Aug, [facility] [place] [facility] [address] [facility] [id number], [place] [address]- 1203 Aug, [facility] [place] [facility] [address] [id number] [place] [address]- 2655 Aug, [facility] [place] [facility] [address] [id number] [place] [address]- 1882 Jul, [facility] [place] [facility] [address] [id number] [place] [address]- 5776 Jul, [facility] [place] [facility] [address] [id number] [place] [address]- 3546 16 Jul, 2013 [facility] [place] [facility] [address] [id number] [place] [address]- 0340 Jul, [facility] [place] [facility] [address] [id number] [place] [address]- 2140 Jun, [facility] [place] [facility] [address] [id number] [place] [address]- 5188 Jun, [facility] [place] [facility] [address] [id number] [place] [address]- 9362 Jun, [facility] [place] [facility] [address] [id number] [place] [address]- 1554 Jun, [facility] [place] [facility] [address] [id number] [place] [address]- 5367 Jun, [facility] [place] [facility] [address] [id number] [place] [address]- 9701 Jun, [facility] [place] [facility] [address] [id number] [place] [address]- 7057 Jun, [facility] [place] [facility] [address] [id number] [place] [address]- 7597 May, [facility] [place] [facility] [address] [id number] [place] [address]- 4763 May, [facility] [place] [facility] [address] [id number] [place] [address]- 2546 May, [facility] [place] [facility] [address] [id number] [place] [address]- 1938 15 May, 2013 [facility] [place] [facility] [address] [id number] [place] [address]- 3507 13 May, 2013 [facility] [place] [facility] [address] [id number] [place] [address]- 9064 05 May, 2013 [facility] [place] [facility] [address] [id number] [place] [address]- 3761 03 May, 2013 [facility] [place] [facility] [address] [id number] [place] [address]- 0636 28 Apr, 2013 [facility] [place] [facility] [address] [id number] [place] [address]- 1463 27 Apr, 2013 [facility] [place] [facility] [address] [id number] [place] [address]- 0331 27 Apr, 2013 [facility] [place] [facility] [address] [id number] [place] [address]- 2443 26 Apr, 2013 [facility] [place] [facility] [address] [id number] [place] [address]- 7963 20 Apr, 2013 [facility] [place] [facility] [address] [id number] [place] [address]- 1750 18 Apr, 2013 [facility] [place] [facility] [address] [id number] [place] [address]- 7264 18 Apr, 2013 [facility] [place] [facility] [address] [id number] [place] [address]- 9025 18 Apr, 2013 [facility] [place] [facility] [address] [id number], [place] [address]- 4857 17 Apr, 2013 [facility] [place] [facility] [address] [id number] [place] [address]- 5437 14 Apr, 2013 [facility] [place] [facility] [address] [id number] [place] [address]- 6933 14 Apr, 2013 [facility] [place] [facility] [address] [id number] [place] [address]- 0662 11 Apr, 2013 [facility] [place] [facility] [address] [id number] [place] [address]- 7025 10 Apr, 2013 [facility] [address] [id number] [place] [address]- 0340 09 Apr, 2013 [facility] [address] [id number] [place] [address]- 8152 Apr, [facility] [address] [id number] [place] [address]- 1679 Apr, [facility] [address] [id number] [place] [address]- 9684 Apr, [facility] [address] [id number] [place] [address]- 6970 Apr, [facility] [address] [id number] [place] [address]- 2335 Apr, [facility] [address] [id number] [place] [address]- 0637 March, [facility] [address] [id number] [place] [address]- 5005 March, [facility] [address] [id number] [place] [address]- 1967 March, [facility] [address] [id number] [place] [address]- 0944 March, [facility] [address] [id number] [place] [address]- 7888 March, [facility] [address] [id number] [place] [address]- 6803 March, [facility] [place] [facility] [address] [id number] [place] [address]- 8851 March, [facility] [place] [facility] [address] [id number] [place] [address]- 6587 Feb, [facility] [address] [id number] [place] [address]- 5275 Feb, [facility] [address] [id number] [place] [address]- 4556 27 Jan, 2013 [facility] [address] [id number] [place] [address]- 1199 18 Jan, 2013 [facility] [address] [id number] [place] [address]- 9067 15 Jan, 2013 [facility] [address] [id number] [place] [address]- 4490 14 Jan, 2013 [facility] [address] [id number] [place] [address]- 6603 13 Jan, 2013 [facility] [address] [id number] [place] [address]- 0711 12 Jan, 2013 [facility] [address] [id number] [place] [address]- 1685 11 Jan, 2013 [facility] [address] [id number] [place] [address]- 4616 09 Jan, 2013 [facility] [address] [id number] [place] [address]- 5556 08 Jan, 2013 [facility] [address] [id number] [place] [address]- 7365 07 Jan, 2013 [facility] [address] [id number] [place] [address]- 8553 06 Jan, 2013 [facility] [address] [id number] [place] [address]- 8373 17 Nov, 2012 [facility] [address] [id number] [place] [address]- 7411 Oct, [facility] [place] [facility] [address] [id number] [place] [address]- 6881 Oct, [facility] [place] [facility] [address] [id number] [place] [address]- 4481 11 Oct, 2012 [facility] [address] [id number], [place] [address]- 4159 Oct, [facility] [place] [facility] [address] [id number] [place] [address]- 9846 Sep, [facility] [place] [facility] [address] [id number] [place] [address]- 7738 Sep, [facility] [place] [facility] [address] [facility] [id number] [place] [address]- 6940 Sep, [facility] [place] [facility] [address] [id number], [place] [address]- 8574 Sep, [facility] [place] [facility] [address] [id number] [place] [address]- 6636 Sep, [facility] [place] [facility] [address] [id number] [place] [address]- 6019 Sep, [facility] [place] [facility] [address] [id number] [place] [address]- 8121 Sep, [facility] [place] [facility] [address] [id number], [place] [address]- 8898 Sep, [facility] [place] [facility] [address] [id number], [place] [address]- 8344 Sep, [facility] [place] [facility] [address] [id number], [place] [address]- 1521 Sep, [facility] [place] [facility] [address] [id number], [place] [address]- 8110 Sep, [facility] [place] [facility] [address] [id number], [place] [address]- 8976 Aug, [facility] [place] [facility] [address] [id number], [place] [address]- 0797 Aug, [facility] [place] [facility] [address] [facility] [id number], [place] [address]- 0670 Aug, [facility] [place] [facility] [address] [id number], [place] [address]- 6074 Jul, [facility] [place] [facility] [address] [id number] [place] [address]- 8745 25 Jul, 2012 [facility] [address] [id number] [place] [address]- 9996 19 Jul, 2012 [facility] [address] [id number] [place] [address]- 6436 17 Jul, 2012 [facility] [address] [id number] [place] [address]- 3681 20 Jun, 2012 [facility] [address] [id number] [place] [address]- 8366 16 Jun, 2012 [facility] [address] [id number] [place] [address]- 4868 15 Jun, 2012 [facility] [address] [id number] [place] [address]- 2724 15 Jun, 2012 [facility] [address] [id number] [place] [address]- 1591 13 Jun, 2012 [facility] [address] [id number] [place] [address]- 0395 18 Mar, 2012 [facility] [address] [id number] [place] [address]- 5894 04 Feb, 2012 [facility] [address] [id number] [place] [address]- 5607 28 Jan, 2012 [facility] [place] [facility] [address] [id number] [place] [address]- 5426 27 Jan, 2012 [facility] [address] [id number] [place] [address]- 5563 22 Jan, 2012 [facility] [place] [facility] [address] [id number] [place] [address]- 6271 14 Jan, 2012 [facility] [place] [facility] [address] [id number] [place] [address]- 9474 14 Jan, 2012 [facility] [place] [facility] [address] [id number] [place] [address]- 9377 14 Jan, 2012 [facility] [place] [facility] [address] [id number] [place] [address]- 4234 28 Dec, 2011 [facility] [place] [facility] [address] [id number] [place] [address]- 4416 27 Dec, 2011 [facility] [place] [facility] [address] [id number] [place] [address]- 7596 23 Dec, 2011 [facility] [place] [facility] [address] [id number] [place] [address]- 5026 21 Dec, 2011 [facility] [place] [facility] [address] [id number] [place] [address]- 7626 20 Dec, 2011 [facility] [place] [facility] [address] [id number] [place] [address]- 6236 19 Dec, 2011 [facility] [place] [facility] [address] [id number] [place] [address]- 9836 17 Dec, 2011 [facility] [place] [facility] [address] [id number] [place] [address]- 5239 16 Dec, 2011 [facility] [place] [facility] [address] [id number] [place] [address]- 9294 Nov, [facility] [place] [facility] [address] [id number] [place] [address]- 5752 Oct, [facility] [place] [facility] [address] [id number] [place] [address]- 0547 18 Sep, 2011 [facility] [place] [facility] [address] [id number] [place] [address]- 7970 18 Sep, 2011 [facility] [place] [facility] [address] [id number] [place] [address]- 2016 17 Sep, 2011 [facility] [place] [facility] [address] [facility] [id number] [place] [address]- 3780 17 Sep, 2011 [facility] [place] [facility] [address] [facility] [id number] [place] [address]- 2346 07 Sep, 2011 [facility] [place] [facility] [address] [facility] [id number] [place] [address]- 2546 Sep, [facility] [address] [facility] [id number] [place] [address]- 0873 Jan, [facility] [address] [facility] [id number] [place] [address]- 7490 Apr, IMMUNIZATIONS No Known Immunizations SOCIAL HISTORY Never Assessed REASON FOR VISIT EMR-[facility] PLAN OF CARE VITAL SIGNS [...]
--- OUTSIDE RECORDS SUMMARY | 2019-03-04 16:43 | XMS REPORT ---
Author Author Migration, Doctor Organization [facility] Address Unknown Phone Unavailable Care Team Providers Care Physics Tutor Name Role Phone Migration, Doctor Unavailable Unavailable PROBLEMS Type Condition ICD9-CM Code [id number] Code Onset Dates Condition Status SNOMED Code Problem Generalized anxiety disorder F41.1 Active 02759690 Problem Bipolar disorder, current episode mixed, moderate F31.62 Active 913556027 Problem Acute non intractable tension-type headache G44.209 Active 242770904 Problem Constipation K59.00 Active 33411192 Problem Post traumatic stress disorder F43.10 Active 92284494 Problem Borderline personality disorder F60.3 Active 53711922 Problem Endometriosis N80.9 Active 737009390 Problem Acute right-sided low back pain with right-sided sciatica M54.41 Active [id number] ALLERGIES No Information ENCOUNTERS Encounter Location Date Diagnosis [place] [address] [address] Jan, Bipolar disorder, current episode mixed, moderate F31.62 [place] [address] [address] Dec, Bipolar disorder, current episode mixed, moderate F31.62 [place] [address] [address] Nov, Bipolar disorder, current episode mixed, moderate F31.62 [facility] [address] [place] [id number] [place] [address]15 -1175 Oct, Sore throat J02.9 [facility] [address] [address] Oct, Abdominal pain R10.9 ; Low back pain M54.5 ; Left shoulder pain M25.512 and Constipation K59.00 [facility] [address] [address] Oct, Bipolar disorder, current episode mixed, moderate F31.62 ; Post traumatic stress disorder F43.10 and Borderline personality disorder F60.3 [facility] [address] [place] [id number] [place] [address] 64737- 8076 Sep, Bipolar disorder, current episode mixed, moderate F31.62 [place] [address] [address] Aug, Bipolar disorder, current episode mixed, moderate F31.62 [place] [address] [place] [id number] [place] [address] 84011- 5932 Jul, Thrombophlebitis I80.9 and Pelvic pain R10.2 [place] [address] [place] [id number] [place] [address] 04098- 5842 05 Jul, 2018 Bipolar disorder, current episode mixed, moderate F31.62 ; Post traumatic stress disorder F43.10 and Borderline personality disorder F60.3 [place] [address] [place] [id number] [place] [address] 20570- 0324 Jun, Bipolar disorder, current episode mixed, moderate F31.62 [place] [address] [place] [id number] [place] [address] 93013- 3127 May, Palpitations R00.2 [place] [address] [place] [id number] [place] [address] 84629- 0007 May, Palpitations R00.2 [place] [address] [place] [id number] [place] [address] 15382- 3507 May, Palpitations R00.2 and Frequent bowel movements R19.4 [place] [address] [place] [id number] [place] [address] 13189- 6720 May, Bipolar disorder, current episode mixed, moderate F31.62 ; Post traumatic stress disorder F43.10 and Borderline personality disorder F60.3 [facility] [address] [place] [address] [id number] Apr, Dental examination Z01.20 [facility] [address] [address] 15 Apr, 2018 [place] [address] [place] [id number] [place] [address] 01182- 1657 15 Apr, 2018 Dental examination Z01.20 [facility] [address] [id number] [place] [address] 40882 -9904 15 Apr, 2018 Tooth pain K08.89 [place] [address] [place] [id number] [place] [address] 91360- 2757 06 Apr, 2018 Bipolar disorder, current episode mixed, moderate F31.62 ; Post traumatic stress disorder F43.10 and Borderline personality disorder F60.3 [facility] [address] [place] [id number] [place] [address] 52448 -1459 18 Mar, 2018 Abdominal pain R10.9 ; UTI symptoms R39.9 and Other microscopic hematuria R31.29 [place] [address] [place] [id number] [place] [address] 12447- 4982 18 Mar, 2018 [place] [address] [place] [id number] [place] [address] 29690- 8969 March, Bipolar disorder, current episode mixed, moderate F31.62 ; Post traumatic stress disorder F43.10 and Borderline personality disorder F60.3 [place] [address] [place] [id number] [place] [address] 26923- 6132 30 Feb, 2018 Encounter for immunization Z23 [place] [address] [place] [id number] [place] [address] 32632- 9358 Feb, Bipolar disorder, current episode mixed, moderate F31.62 ; Post traumatic stress disorder F43.10 and Borderline personality disorder F60.3 [place] [address] [place] [id number] [place] [address] 83929- 5103 Feb, Bipolar disorder, current episode mixed, moderate F31.62 ; Post traumatic stress disorder F43.10 ; Borderline personality disorder F60.3 and Other retirement (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 Z79.899 [place] [address] [place] [address] 30 Jan, 2018 Encounter for immunization Z23 [place] [address] 8[address]67- [address] Jan, [facility] [address] 40932- 53[address] Jan, Bipolar disorder, current episode mixed, moderate F31.62 [facility] [address] 25[address]8686 Jan, Lumbar back pain M54.5 [place] [address] [place] [id number] [place] [address] 15683- 1864 Dec, Low back pain M54.5 [place] [address] [place] [id number] [place] [address] 47546- 3914 Dec, Bipolar disorder, current episode mixed, moderate F31.62 [place] [address] [place] [id number] [place] [address] 11425- 9677 Dec, Generalized anxiety disorder F41.1 and Bipolar disorder, current episode mixed, moderate F31.62 [facility] [address] [place] [id number] [place] [address] 05554 -9173 Nov, Acute non intractable tension-type headache G44.209 [place] [address] [place] [id number] [place] [address] 36880- 5681 Nov, Bipolar disorder, current episode mixed, moderate F31.62 ; Post traumatic stress disorder F43.10 and Borderline personality disorder F60.3 [place] [address] [place] [id number] [place] [address] 43495- 6540 Nov, Bipolar disorder, current episode mixed, moderate F31.62 [facility] [address] [place] [id number] [place] [address] Nov, Abdominal pain R10.9 ; History of PCOS Z87.42 ; History of endometriosis Z87.42 and Pelvic pain R10.2 [place] [address] [place] [address] [place] [address]- [address] Nov, [facility] [address] [id number] [place] [address] 33470 -4239 Oct, History of PCOS Z87.42 ; History of endometriosis Z87.42 and Pain R52 [facility] [address] [place] [id number] [place] [address] 74802- 7793 Oct, Bipolar disorder, current episode mixed, moderate F31.62 ; Post traumatic stress disorder F43.10 and Borderline personality disorder F60.3 [facility] [address] [place] [id number] [place] [address] 87143- 5669 Oct, Bipolar disorder, current episode mixed, moderate F31.62 [facility] [address] [place] [id number] [place] [address] 00398- 5329 Sep, Bipolar disorder, current episode mixed, moderate F31.62 ; Post traumatic stress disorder F43.10 ; Borderline personality disorder F60.3 and Other retirement (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 Z79.899 [facility] [address] [place] [id number] [place] [address] 29866- 9453 17 Sep, 2017 Bipolar disorder, current episode mixed, moderate F31.62 [facility] [address] [place] [id number] [place] [address] 92034 -8251 Sep, Endometriosis N80.9 and Acute right-sided low back pain with right-sided sciatica M54.41 [facility] [address] [place] [id number] [place] [address] 55052- 5479 Aug, [facility] [address] [place] [id number] [place] [address] 18982- 8651 Aug, Bipolar disorder, current episode mixed, moderate F31.62 ; Post traumatic stress disorder F43.10 and Borderline personality disorder F60.3 [facility] [address] [place] [address] 32613- 8169 Aug, Bipolar disorder, current episode mixed, moderate F31.62 ; Post traumatic stress disorder F43.10 and Borderline personality disorder F60.3 [facility] [address] [address]- [address] 13 Jul, 2017 Bipolar disorder, current episode mixed, moderate F31.62 ; Post traumatic stress disorder F43.10 and Borderline personality disorder F60.3 [facility] [address], [place] [address] 11 Jul, 2017 Pharyngitis, unspecified etiology J02.9 and Streptococcal pharyngitis J02.0 [facility] [address] [place] [address] 59631- 1082 16 Jun, 2017 Bipolar disorder, current episode mixed, moderate F31.62 ; Post traumatic stress disorder F43.10 and Borderline personality disorder F60.3 [facility] [address], [place] [address]- 2274 19 May, 2017 [facility] [address] [place] [id number] [place] [address] 39851- 1812 May, [facility] [address] [place] [id number] [place] [address] 11267- 7982 May, Bipolar disorder, current episode mixed, moderate F31.62 and Generalized anxiety disorder F41.1 [facility] [address] [place] [address] 28101- 1757 March, Bipolar disorder, current episode mixed, moderate F31.62 and Generalized anxiety disorder F41.1 [facility] [address] [place] [address] 33003- 9604 March, Pelvic pain R10.2 [facility] [address] [place] [address] 79722- 3544 March, [facility] [address] [place] [id number] [place] [address] 79751- 1726 05 Feb, 2017 Bipolar disorder, current episode mixed, moderate F31.62 and Generalized anxiety disorder F41.1 [facility] [address] [place] [address] 82006- 4289 Jan, [facility] [address] [place] [address] 30626- 2369 Jan, Bipolar disorder, current episode mixed, moderate F31.62 [facility] [address] [place] [id number] [place] [address]4 Jan, Bipolar disorder, current episode mixed, moderate F31.62 [facility] [address] 457001- 5541 Jan, Bilateral low back pain without sciatica M54.5 [facility] [address] [id number] Jan, Dental caries K02.9 and Dental examination Z01.20 [facility] [address] [id number] Jan, Encounter for dental examination and cleaning without abnormal findings Z01.20 [facility] [address] [place] [id number] [place] [address] 33889- 0104 Jan, Bipolar disorder, current episode mixed, moderate F31.62 and Generalized anxiety disorder F41.1 [facility] [address] 12782- 2972 Dec, [facility] [address] [place] [id number] [place] [address] 04434- 0893 Dec, Bipolar disorder, current episode mixed, moderate F31.62 and Generalized anxiety disorder F41.1 [facility] [address] [place] [id number] [place] [address] 94300- 2257 Dec, Other fatigue R53.83 and Orthostatic hypotension I95.1 [facility] [address] [id number] Nov, Dental examination Z01.20 [facility] [address] [place] [id number] [place] [address] 26219 -1650 Nov, Bronchitis J40 [facility] [address] [place] [id number]- 2546 Oct, Generalized anxiety disorder F41.1 [facility] [address] [place] [id number] [place] [address] 71473- 7674 14 Sep, 2016 Bipolar disorder, current episode mixed, moderate F31.62 and Generalized anxiety disorder F41.1 [facility] [address] [place] [id number] [place] [address] 34958- 7228 02 Sep, 2016 Bipolar disorder, current episode mixed, moderate F31.62 and Generalized anxiety disorder F41.1 [facility] [address] [place] [address] 16660 -9063 08 Jul, 2016 Upper respiratory tract infection, unspecified type J06.9 [facility] [address] [place] [id number] [place] [address] 22973- 7554 Jun, Bipolar disorder, current episode mixed, moderate F31.62 and Generalized anxiety disorder F41.1 [facility] [address] [place] [id number] [place] [address] 35053- 5124 Apr, [facility] [address] [place] [id number] [place] [address] 61640- 3942 Apr, Encounter for test, result positive Z32.01 [facility] [address] [place] [id number] [place] [address] 90767- 0415 March, [facility] [address] [place] [id number] [place] [address] 66333- 0962 March, Bipolar disorder, current episode mixed, moderate F31.62 and Generalized anxiety disorder F41.1 [facility] [address] [place] [id number] [place] [address] 07454- 7056 March, Bipolar disorder, current episode mixed, moderate F31.62 and Generalized anxiety disorder F41.1 [facility] [address] [place] [id number] [place] [address] 86107- 8786 March, [facility] [address] [place] [id number] [place] [address] 25809- 1731 March, [facility] [address] [address] [id number] [place] [address] 63762- 4424 Feb, [facility] [address] [id number] [place] [address] 02942- 6374 Feb, [facility] [address] [place] [id number] [place] [address] 73437- 0390 Feb, Bipolar disorder, current episode mixed, moderate F31.62 and Generalized anxiety disorder F41.1 [facility] [address] [place] [id number] [place] [address] 18932- 3825 Jan, Abdominal pain R10.9 [facility] [address] [place] [id number] [place] [address] 25864- 5611 Jan, [facility] [address] [place] [id number] [place] [address] 15953- 6942 Dec, Dental examination Z01.20 [facility] [address] [place] [id number] [place] [address] 35199- 5729 Dec, Dental examination Z01.20 and Dental caries K02.9 [facility] [address] [place] [id number] [place] [address] 47689- 3718 Dec, Bipolar disorder, current episode mixed, moderate F31.62 and Generalized anxiety disorder F41.1 [facility] [address] [place] [id number] [place] [address] 36373- 4981 Dec, [facility] [address] [place] [id number] [place] [address] 31323- 9921 Nov, Bipolar disorder, current episode mixed, moderate F31.62 ; Generalized anxiety disorder F41.1 and Seizure-like activity R56.9 [facility] [address] [place] [id number] [place] [address] 60140- 1578 Oct, [facility] [address] [place] [id number] [place] [address] 59988- 7838 Oct, Bipolar disorder, current episode mixed, moderate F31.62 [facility] [address] [address] [id number] [place] [address] 54214- 4399 14 Oct, 2015 Well woman exam Z01.419 [...] Tobacco use Z72.0 and Hot flashes N95.[address] 26509- 0949 09 Oct, 2015 Seizure-like activity R56.9 and Irregular periods N92.[address] 37568- 8244 07 Oct, 2015 Bipolar disorder, current episode mixed, moderate F31.62 ; Generalized anxiety disorder F41.1 and Underweight R63.[address] 05476- 5090 Oct, [address] 70505- 0598 Oct, Generalized anxiety disorder F41.1 and Unspecified mood [ affective] disorder F39 [facility] [address] 60875 -9087 Oct, Back pain M54.9 and Anxiety F41.[address] 00500- 6631 Oct, [facility] [address] [place] [address] 72857 -9494 Sep, Arm pain, left M79.602 [facility] [address] [place] [address] 65953- 5686 Sep, [facility] [address] [place] [id number] Sep, Dental examination Z01.20 and Dental caries K02.9 [facility] [address] [id number] [place] [address] 54429- 0422 Sep, Generalized anxiety disorder F41.1 and Unspecified episodic mood disorder F39 [facility] [address] [id number] [place] [address] 88944- 3712 Sep, Bilateral low back pain without sciatica M54.5 and Seizure- like activity R56.9 [facility] [id number] [place] [address] 03492- 4468 Aug, [facility] [address] [id number] [place] [address] 91066- 4195 Aug, [facility] [address] [address] [id number] [place] [address] 73757- 2179 Aug, [facility] [id number] [place] [address] 74322- 6480 Aug, Visual changes H53.9 and Bilateral low back pain without sciatica M54.5 [facility] [id number] [place] [address] 56592- 5490 Jul, [facility] [address] [place] [address] 27335- 3492 Jun, Bipolar I disorder, most recent episode (or current) mixed, moderate 296.62 ; Generalized anxiety disorder 300.02 and High risk medication use V58.69 [facility] [address], [place] [address]- 3707 Jun, [facility] [id number] [place] [address] 32915- 2781 May, [facility] [address] [place] [address] 24972- 7491 May, Bipolar I disorder, most recent episode (or current) mixed, moderate 296.62 and Generalized anxiety disorder 300.02 [facility] [address] [address] May, Dental examination V72.2 [facility] [id number] [place] [address] 527181- 7055 March, Bipolar I disorder, most recent episode (or current) mixed, moderate 296.62 and Generalized anxiety disorder 300.02 [facility] [id number] [place] [address] 222981- 9072 March, [facility] [id number] [place] [address] 88416- 0356 March, [facility] [id number] [place] [address] 35048- 1619 March, Underweight 783.22 ; Hand pain, right 729.5 and Reflux gastritis 535.40 [facility] [id number] [address]- 5991 Feb, [facility] [id number] [place] [address] 55965608- 4163 Feb, [facility] [address], [place] [address]- 3879 18 Jan, 2015 [facility] [id number] 6656 18 Jan, 2015 [facility] [address], [place] [address]- 4486 16 Jan, 2015 [facility] [address], [place] [address]- 0306 16 Jan, 2015 [facility] [address], [place] [address]- 2437 Jan, [facility] [address], [place] [address]- 1316 Jan, [facility] [address], [place] [address]- 1086 05 Jan, 2015 [facility] [id number] [place] [address]- 4352 05 Jan, 2014 [facility] [place] [facility] [address] [id number] [place] [address]- 4499 Jan, 2014 [facility] [place] [facility] [address] [facility] [id number] [place] [address]- 7260 Jan, 2014 [facility] [place] [facility] [address] [facility] [id number] [place] [address]- 2127 Jan, 2014 [facility] [place] [facility] [address] [id number] [place] [address]- 0119 Jan, [facility] [place] [facility] [address] [facility] [id number] [place] [address]- 2808 Dec, 2014 [facility] [place] [facility] [address] [facility] [id number] [place] [address]- 5088 20 Dec, 2014 [facility] [place] [facility] [address] [facility] [id number] [place] [address]- 3783 19 Dec, 2014 [facility] [place] [facility] [address] [facility] [id number] [place] [address] 19 Dec, 2014 [facility] [place] [facility] [address] [facility] [id number] [place] [address] 18 Dec, 2014 [facility] [place] [facility] [address] [facility] [id number] [place] [address] 17 Dec, 2014 [facility] [place] [facility] [address] [facility] [id number] [place] [address] 17 Dec, 2014 [facility] [place] [facility] [address] [facility] [id number] [place] [address] 16 Dec, 2014 [facility] [place] [facility] [address] [facility] [id number] [place] [address] 16 Dec, 2014 [facility] [place] [facility] [address] [facility] [id number], [place] [address] 05 Dec, 2014 [facility] [place] [facility] [address] [facility] [id number], [place] [address] Dec, 2014 [facility] [place] [facility] [address] [id number] [place] [address] Dec, 2014 [facility] [place] [facility] [address] [facility] [id number] [place] [address] Dec, 2014 [facility] [place] [facility] [address] [facility] [id number] [place] [address]79 Dec, 2014 [facility] [place] [facility] [address] [facility] [id number] [place] [address] 4[address] Dec, 2014 [facility] [place] [facility] [address] [id number] [place] [address] 8931 Dec, 2014 [facility] [place] [facility] [address] [facility] [id number] [place] [address]- 6374 Dec, 2014 [facility] [place] [facility] [address] [facility] [id number] [place] [address]- 0649 Dec, 2014 [facility] [place] [facility] [address] [facility] [id number] [place] [address]- 0220 Dec, [facility] [place] [facility] [address] [facility] [id number] [place] [address] 7810 Nov, [facility] [place] [facility] [address] [facility] [id number], [place] [address] Nov, [facility] [place] [facility] [address] [facility] [id number], [place] [address] 8552 Nov, [facility] [place] [facility] [address] [facility] [id number], [place] [address] 6757 Nov, [facility] [place] [facility] [address] [facility] [id number] [place] [address]- 0076 Nov, [facility] [place] [facility] [address] [facility] [id number] [place] [address]- 9330 Nov, [facility] [place] [facility] [address] [id number] [id number] Nov, [facility] [place] [facility] [address] [id number] [place] [address] 9411 Nov, [facility] [address] [id number] [place] [address]- 6059 Nov, [facility] [address] [id number] [place] [id number] Nov, [facility] [address] [id number] [place] [address]- 1468 Nov, [facility] [address] [id number] [place] [address]- 6811 Nov, [facility] [address] [id number] [place] [address] Oct, [facility] [address] [id number] [place] [address] 0919 Oct, [facility] [address] [id number] [place] [address] 4948 Oct, [facility] [address] [id number] [place] [address]- 2713 Oct, [facility] [address] [id number] [place] [address]- 6836 Oct, [facility] [address] [id number] [place] [address]- 7701 29 Oct, 2014 [facility] [address] [id number] [place] [address]- 5950 Oct, [facility] [place] [facility] [address] [id number] [place] [address]- 7722 Oct, [facility] [place] [facility] [address] [id number] [place] [address]- 3061 17 Oct, 2014 [facility] [place] [facility] [address] [id number] [place] [address]- 3606 17 Oct, 2014 [facility] [place] [facility] [address] [id number] [place] [address]- 1512 Oct, [facility] [place] [facility] [address] [id number] [place] [address]- 6975 Oct, [facility] [place] [facility] [address] [id number] [place] [address]- 5308 Sep, [facility] [place] [facility] [address] [id number] [place] [address]- 7207 Sep, [facility] [place] [facility] [address] [id number] [place] [address]- 5918 Sep, [facility] [place] [facility] [address] [id number] [place] [address]- 1508 Sep, [facility] [place] [facility] [address] [id number] [place] [address]- 0056 Sep, [facility] [place] [facility] [address] [id number] [place] [address]- 0542 Sep, [facility] [place] [facility] [address] [id number], [place] [address]- 6779 Sep, [facility] [place] [facility] [address] [id number] [place] [address]- 4333 Sep, [facility] [place] [facility] [address] [id number], [place] [address]- 8698 Aug, [facility] [place] [facility] [address] [id number], [place] [address]- 5555 Aug, [facility] [place] [facility] [address] [id number], [place] [address]- 0087 Aug, [facility] [place] [facility] [address] [id number], [place] [address]- 4392 Aug, [facility] [place] [facility] [address] [id number], [place] [address]- 6141 Aug, [facility] [place] [facility] [address] [id number][place] [address]67 Aug, [facility] [place] [facility] [address] [id number] [place] [address]- 6414 08 Aug, 2014 [facility] [place] [facility] [address] [id number] [place] [address]- 4386 08 Aug, 2014 [facility] [place] [facility] [address] [id number] [place] [address]- 8202 Aug, [facility] [place] [facility] [address] [id number] [place] [address]- 4918 Aug, [facility] [place] [facility] [address] [id number] [place] [address]- 5273 Aug, [facility] [place] [facility] [address] [id number] [place] [address]- 1308 Aug, [facility] [place] [facility] [address] [id number] [place] [address]- 8043 Aug, [facility] [place] [facility] [address] [id number] [place] [address]- 0757 Jul, [facility] [place] [facility] [address] [id number] [place] [address]- 9800 Jul, [facility] [place] [facility] [address] [id number] [place] [address]- 3585 Jul, [facility] [place] [facility] [address] [id number] [place] [address]- 8774 Jul, [facility] [place] [facility] [address] [id number] [place] [address]- 3176 Jun, [facility] [place] [facility] [address] [id number] [place] [address]- 6609 Jun, [facility] [place] [facility] [address] [id number] [place] [address]- 2766 Jun, [facility] [place] [facility] [address] [id number] [place] [address]- 8286 Jun, [facility] [place] [facility] [address] [id number] [place] [address]- 5134 Jun, [facility] [place] [facility] [address] [id number] [place] [address]- 8320 Jun, [facility] [place] [facility] [address] [id number] [place] [address]- 1197 May, [facility] [place] [facility] [address] [id number] [place] [address]- 4490 May, [facility] [place] [facility] [address] [id number] [place] [address]- 0247 May, [facility] [place] [facility] [address] [id number] [place] [address]- 6534 May, [facility] [place] [facility] [address] [id number] [place] [address]- 5483 Apr, [facility] [place] [facility] [address] [id number] [place] [address]- 1449 Apr, [facility] [place] [facility] [address] [id number] [place] [address]- 4963 March, [facility] [place] [facility] [address] [id number] [place] [address]- 8983 March, [facility] [place] [facility] [address] [id number] [place] [address]- 1705 March, [facility] [place] [facility] [address] [id number] [place] [address]- 3431 March, [facility] [place] [facility] [address] [id number] [place] [address]- 9701 March, [facility] [place] [facility] [address] [id number] [place] [address]- 7154 March, [facility] [place] [facility] [address] [id number] [place] [address]- 9023 Feb, [facility] [place] [facility] [address] [id number] [place] [address]- 1215 Feb, [facility] [place] [facility] [address] [id number], [place] [address]- 5889 Dec, [facility] [place] [facility] [address] [id number] [place] [address]- 2842 Dec, [facility] [place] [facility] [address] [id number] [place] [address]- 1537 Nov, [facility] [place] [facility] [address] [id number] [place] [address]- 5267 Nov, [facility] [place] [facility] [address] [id number] [place] [address]- 7759 Sep, [facility] [place] [facility] [address] [id number] [place] [address]- 8159 Sep, [facility] [place] [facility] [address] [id number] [place] [address]- 3408 Sep, [facility] [place] [facility] [address] [facility] [id number] [place] [address]- 2707 Sep, [facility] [place] [facility] [address] [id number] [place] [address]- 9706 Sep, [facility] [place] [facility] [address] [facility] [id number] [place] [address]- 3949 Sep, [facility] [place] [facility] [address] [facility] [id number] [place] [address]- 8097 Sep, [facility] [place] [facility] [address] [id number], [place] [address]- 4437 Aug, [facility] [place] [facility] [address] [id number], [place] [address]- 9151 Aug, [facility] [place] [facility] [address] [id number], [place] [address]- 1119 Aug, [facility] [place] [facility] [address] [id number] [place] [address]- 4690 Aug, [facility] [place] [facility] [address] [facility] [id number], [place] [address]- 0582 Aug, [facility] [place] [facility] [address] [id number] [place] [address]- 1531 Aug, [facility] [place] [facility] [address] [id number] [place] [address]- 2098 Jul, [facility] [place] [facility] [address] [id number] [place] [address]- 4786 Jul, [facility] [place] [facility] [address] [id number] [place] [address]- 0466 16 Jul, 2013 [facility] [place] [facility] [address] [id number] [place] [address]- 8422 Jul, [facility] [place] [facility] [address] [id number] [place] [address]- 3105 Jun, [facility] [place] [facility] [address] [id number] [place] [address]- 7296 Jun, [facility] [place] [facility] [address] [id number] [place] [address]- 5752 Jun, [facility] [place] [facility] [address] [id number] [place] [address]- 3264 Jun, [facility] [place] [facility] [address] [id number] [place] [address]- 9690 Jun, [facility] [place] [facility] [address] [id number] [place] [address]- 5061 Jun, [facility] [place] [facility] [address] [id number] [place] [address]- 7986 Jun, [facility] [place] [facility] [address] [id number] [place] [address]- 5749 May, [facility] [place] [facility] [address] [id number] [place] [address]- 7320 May, [facility] [place] [facility] [address] [id number] [place] [address]- 2546 May, [facility] [place] [facility] [address] [id number] [place] [address]- 4170 15 May, 2013 [facility] [place] [facility] [address] [id number] [place] [address]- 3384 13 May, 2013 [facility] [place] [facility] [address] [id number] [place] [address]- 9925 05 May, 2013 [facility] [place] [facility] [address] [id number] [place] [address]- 1926 03 May, 2013 [facility] [place] [facility] [address] [id number] [place] [address]- 7598 28 Apr, 2013 [facility] [place] [facility] [address] [id number] [place] [address]- 0546 27 Apr, 2013 [facility] [place] [facility] [address] [id number] [place] [address]- 1421 27 Apr, 2013 [facility] [place] [facility] [address] [id number] [place] [address]- 5817 26 Apr, 2013 [facility] [place] [facility] [address] [id number] [place] [address]- 3374 20 Apr, 2013 [facility] [place] [facility] [address] [id number] [place] [address]- 6215 18 Apr, 2013 [facility] [place] [facility] [address] [id number] [place] [address]- 0821 18 Apr, 2013 [facility] [place] [facility] [address] [id number] [place] [address]- 4502 18 Apr, 2013 [facility] [place] [facility] [address] [id number], [place] [address]- 1770 17 Apr, 2013 [facility] [place] [facility] [address] [id number] [place] [address]- 1836 14 Apr, 2013 [facility] [place] [facility] [address] [id number] [place] [address]- 4588 14 Apr, 2013 [facility] [place] [facility] [address] [id number] [place] [address]- 9876 11 Apr, 2013 [facility] [place] [facility] [address] [id number] [place] [address]- 1818 10 Apr, 2013 [facility] [address] [id number] [place] [address]- 2135 09 Apr, 2013 [facility] [address] [id number] [place] [address]- 3918 Apr, [facility] [address] [id number] [place] [address]- 6026 Apr, [facility] [address] [id number] [place] [address]- 6549 Apr, [facility] [address] [id number] [place] [address]- 9345 Apr, [facility] [address] [id number] [place] [address]- 5740 Apr, [facility] [address] [id number] [place] [address]- 7392 March, [facility] [address] [id number] [place] [address]- 8733 March, [facility] [address] [id number] [place] [address]- 0693 March, [facility] [address] [id number] [place] [address]- 1282 March, [facility] [address] [id number] [place] [address]- 5586 March, [facility] [address] [id number] [place] [address]- 6012 March, [facility] [place] [facility] [address] [id number] [place] [address]- 1345 March, [facility] [place] [facility] [address] [id number] [place] [address]- 7884 Feb, [facility] [address] [id number] [place] [address]- 8578 Feb, [facility] [address] [id number] [place] [address]- 8859 27 Jan, 2013 [facility] [address] [id number] [place] [address]- 7640 18 Jan, 2013 [facility] [address] [id number] [place] [address]- 7618 15 Jan, 2013 [facility] [address] [id number] [place] [address]- 3012 14 Jan, 2013 [facility] [address] [id number] [place] [address]- 3855 13 Jan, 2013 [facility] [address] [id number] [place] [address]- 3833 12 Jan, 2013 [facility] [address] [id number] [place] [address]- 2540 11 Jan, 2013 [facility] [address] [id number] [place] [address]- 6937 09 Jan, 2013 [facility] [address] [id number] [place] [address]- 7486 08 Jan, 2013 [facility] [address] [id number] [place] [address]- 1770 07 Jan, 2013 [facility] [address] [id number] [place] [address]- 5603 06 Jan, 2013 [facility] [address] [id number] [place] [address]- 6824 17 Nov, 2012 [facility] [address] [id number] [place] [address]- 9254 Oct, [facility] [place] [facility] [address] [id number] [place] [address]- 1022 Oct, [facility] [place] [facility] [address] [id number] [place] [address]- 4377 11 Oct, 2012 [facility] [address] [id number], [place] [address]- 5713 Oct, [facility] [place] [facility] [address] [id number] [place] [address]- 5344 Sep, [facility] [place] [facility] [address] [id number] [place] [address]- 8191 Sep, [facility] [place] [facility] [address] [facility] [id number] [place] [address]- 8832 Sep, [facility] [place] [facility] [address] [id number], [place] [address]- 7578 Sep, [facility] [place] [facility] [address] [id number] [place] [address]- 8652 Sep, [facility] [place] [facility] [address] [id number] [place] [address]- 8531 Sep, [facility] [place] [facility] [address] [id number] [place] [address]- 8932 Sep, [facility] [place] [facility] [address] [id number], [place] [address]- 3366 Sep, [facility] [place] [facility] [address] [id number], [place] [address]- 3997 Sep, [facility] [place] [facility] [address] [id number], [place] [address]- 6614 Sep, [facility] [place] [facility] [address] [id number], [place] [address]- 7496 Sep, [facility] [place] [facility] [address] [id number], [place] [address]- 6947 Aug, [facility] [place] [facility] [address] [id number], [place] [address]- 6153 Aug, [facility] [place] [facility] [address] [facility] [id number], [place] [address]- 9642 Aug, [facility] [place] [facility] [address] [id number], [place] [address]- 6090 Jul, [facility] [place] [facility] [address] [id number] [place] [address]- 9850 25 Jul, 2012 [facility] [address] [id number] [place] [address]- 0646 19 Jul, 2012 [facility] [address] [id number] [place] [address]- 5176 17 Jul, 2012 [facility] [address] [id number] [place] [address]- 2644 20 Jun, 2012 [facility] [address] [id number] [place] [address]- 6280 16 Jun, 2012 [facility] [address] [id number] [place] [address]- 0343 15 Jun, 2012 [facility] [address] [id number] [place] [address]- 6993 15 Jun, 2012 [facility] [address] [id number] [place] [address]- 6923 13 Jun, 2012 [facility] [address] [id number] [place] [address]- 2621 18 Mar, 2012 [facility] [address] [id number] [place] [address]- 4666 04 Feb, 2012 [facility] [address] [id number] [place] [address]- 1158 28 Jan, 2012 [facility] [place] [facility] [address] [id number] [place] [address]- 2043 27 Jan, 2012 [facility] [address] [id number] [place] [address]- 6030 22 Jan, 2012 [facility] [place] [facility] [address] [id number] [place] [address]- 3035 14 Jan, 2012 [facility] [place] [facility] [address] [id number] [place] [address]- 2711 14 Jan, 2012 [facility] [place] [facility] [address] [id number] [place] [address]- 6490 14 Jan, 2012 [facility] [place] [facility] [address] [id number] [place] [address]- 8935 28 Dec, 2011 [facility] [place] [facility] [address] [id number] [place] [address]- 1666 27 Dec, 2011 [facility] [place] [facility] [address] [id number] [place] [address]- 0216 23 Dec, 2011 [facility] [place] [facility] [address] [id number] [place] [address]- 0626 21 Dec, 2011 [facility] [place] [facility] [address] [id number] [place] [address] 20 Dec, 2011 [facility] [place] [facility] [address] [id number] [place] [address] 19 Dec, 2011 [facility] [place] [facility] [address] [id number] [place] [address] 17 Dec, 2011 [facility] [place] [facility] [address] [id number] [place] [address] 16 Dec, 2011 [facility] [place] [facility] [address] [id number] [place] [address] Nov, [facility] [place] [facility] [address] [id number] [place] [address] Oct, [facility] [place] [facility] [address] [id number] [place] [address] 18 Sep, 2011 [facility] [place] [facility] [address] [id number] [place] [address] 18 Sep, 2011 [facility] [place] [facility] [address] [id number] [place] [address] 17 Sep, 2011 [facility] [place] [facility] [address] [facility] [id number] [place] [address] 17 Sep, 2011 [facility] [place] [facility] [address] [facility] [id number] [place] [address] 07 Sep, 2011 [facility] [place] [facility] [address] [facility] [id number] [place] [address] Sep, [facility] [address] [facility] [id number] [place] [address] Jan, [facility] [address] [facility] [id number] [place] [address] Apr, IMMUNIZATIONS No Known Immunizations SOCIAL HISTORY Never Assessed REASON FOR VISIT E[place] [place] [...]
--- OUTSIDE RECORDS SUMMARY | 2019-03-04 16:44 | XMS REPORT ---
Author Author Migration, Doctor Organization [facility] Address Unknown Phone Unavailable Care Team Providers Care Tank Carpenter Name Role Phone Migration, Doctor Unavailable Unavailable PROBLEMS Type Condition ICD9-CM Code [id number] Code Onset Dates Condition Status SNOMED Code Problem Generalized anxiety disorder F41.1 Active 72792679 Problem Bipolar disorder, current episode mixed, moderate F31.62 Active 166374487 Problem Acute non intractable tension-type headache G44.209 Active 280788570 Problem Constipation K59.00 Active 59258177 Problem Post traumatic stress disorder F43.10 Active 44989242 Problem Borderline personality disorder F60.3 Active 98262140 Problem Endometriosis N80.9 Active 949476528 Problem Acute right-sided low back pain with right-sided sciatica M54.41 Active 242126280 ALLERGIES No Information ENCOUNTERS Encounter Location Date Diagnosis [facility] [address] [address] Jan, [place] [address] 25205[address] 9524 Dec, Bipolar disorder, current episode mixed, moderate F31.62 [facility] [address] [address]99- [address] Nov, Bipolar disorder, current episode mixed, moderate F31.62 [facility] [address] [address] Oct, Sore throat J02.9 [facility] [address] [address] Oct, Abdominal pain R10.9 ; Low back pain M54.5 ; Left shoulder pain M25.512 and Constipation K59.00 [facility] [address] 59753- 2564 Oct, Bipolar disorder, current episode mixed, moderate F31.62 ; Post traumatic stress disorder F43.10 and Borderline personality disorder F60.3 [facility] [address] [place] [id number] [place], [place] [address] Sep, Bipolar disorder, current episode mixed, moderate F31.62 [facility] [address] [place] [id number] [place] [address] 08 Aug, 2018 Bipolar disorder, current episode mixed, moderate F31.62 [facility] [address] 609022- 9227 25 Jul, 2018 Thrombophlebitis I80.9 and Pelvic pain R10.2 [facility] [address] 06701- 5833 05 Jul, 2018 Bipolar disorder, current episode mixed, moderate F31.62 ; Post traumatic stress disorder F43.10 and Borderline personality disorder F60.3 [facility] [address] [address]44- 8535 Jun, Bipolar disorder, current episode mixed, moderate F31.62 [facility] [address] [place] [id number] [place] [address] 99358- 2632 May, Palpitations R00.2 [facility] [address] 79806- 6428 May, Palpitations R00.2 [facility] [address] [place] [id number] [place] [address] 72765- 4598 May, Palpitations R00.2 and Frequent bowel movements R19.4 [facility] [address] [place] [id number] [place] [address] 17325- 2463 May, Bipolar disorder, current episode mixed, moderate F31.62 ; Post traumatic stress disorder F43.10 and Borderline personality disorder F60.3 [facility] [address] [place] [id number] [place] [address] [id number] 15 Apr, 2018 Dental examination Z01.20 [facility] [address] [place] [address] 15 Apr, 2018 [facility] [address] [place] [id number] [place] [address] 00089- 4055 15 Apr, 2018 Dental examination Z01.20 [facility] [address] [place] [id number] [place] [address] 74095 -3692 15 Apr, 2018 Tooth pain K08.89 [place] [address] 96992- 3837 06 Apr, 2018 Bipolar disorder, current episode mixed, moderate F31.62 ; Post traumatic stress disorder F43.10 and Borderline personality disorder F60.3 [facility] [address] 78[address] -8977 18 Mar, 2018 Abdominal pain R10.9 ; UTI symptoms R39.9 and Other microscopic hematuria R31.29 [place] [address] 74337- 9094 18 Mar, 2018 [place] [address] [place] [id number] [place] [address] 52379- 2759 09 Mar, 2018 Bipolar disorder, current episode mixed, moderate F31.62 ; Post traumatic stress disorder F43.10 and Borderline personality disorder F60.3 [place] [address] [place] [id number] [place] [address] 68671- 4687 30 Feb, 2018 Encounter for immunization Z23 [place] [address] [place] [id number] [place] [address] 37970- 1154 16 Feb, 2018 Bipolar disorder, current episode mixed, moderate F31.62 ; Post traumatic stress disorder F43.10 and Borderline personality disorder F60.3 [place] [address] [place] [id number] [place] [address] 73653- 5263 11 Feb, 2018 Bipolar disorder, current episode mixed, moderate F31.62 ; Post traumatic stress disorder F43.10 ; Borderline personality disorder F60.3 and 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 [place] [address] [place] [id number] [place] [address] 53630- 8622 Jan, Encounter for immunization Z23 [facility] [address] [place] [id number] [place] [address] 46825- 5913 Jan, [facility] [address] 37104- 1245 Jan, Bipolar disorder, current episode mixed, moderate F31.62 [facility] [address] 34571 -[address]270 Jan, Lumbar back pain M54.5 [place] [address] 34099- 8156 Dec, Low back pain M54.5 [place] [address] 25643- 2180 Dec, Bipolar disorder, current episode mixed, moderate F31.62 [place] [address] 71869- 0828 Dec, Generalized anxiety disorder F41.1 and Bipolar disorder, current episode mixed, moderate F31.62 [facility] [address] [place] [id number] [place] [address] 44558 -0769 Nov, Acute non intractable tension-type headache G44.209 [place] [address] 42037- 1616 Nov, Bipolar disorder, current episode mixed, moderate F31.62 ; Post traumatic stress disorder F43.10 and Borderline personality disorder F60.3 [facility] [address] [place] [id number] [place] [address] 24841- 9442 Nov, Bipolar disorder, current episode mixed, moderate F31.62 [facility] [address] 37630 -2638 Nov, Abdominal pain R10.9 ; History of PCOS Z87.42 ; History of endometriosis Z87.42 and Pelvic pain R10.2 [place] [address] 18610- 4619 Nov, [facility] [address] [place] [id number] [place] [address] 48338 -8048 Oct, History of PCOS Z87.42 ; History of endometriosis Z87.42 and Pain R52 [facility] [address] [place] [id number] [place] [address] 01162- 4458 Oct, Bipolar disorder, current episode mixed, moderate F31.62 ; Post traumatic stress disorder F43.10 and Borderline personality disorder F60.3 [facility] [address] [place] [id number] [place] [address] 22748- 6567 Oct, Bipolar disorder, current episode mixed, moderate F31.62 [place] [address] 31419- 3787 Sep, Bipolar disorder, current episode mixed, moderate F31.62 ; Post traumatic stress disorder F43.10 ; Borderline personality disorder F60.3 and 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 [facility] [address] [place] [id number] [place] [address] 76649- 3189 Sep, Bipolar disorder, current episode mixed, moderate F31.62 [facility] [address] [place] [id number] [place] [address] 69604 -3050 Sep, Endometriosis N80.9 and Acute right-sided low back pain with right-sided sciatica M54.41 [place] [address] [place] [id number] [place] [address] 77445- 4083 Aug, [facility] [address] [place] [id number] [place] [address] 89597- 9967 Aug, Bipolar disorder, current episode mixed, moderate F31.62 ; Post traumatic stress disorder F43.10 and Borderline personality disorder F60.3 [facility] [address] [place] [id number] [place] [address] 91639- 4737 Aug, Bipolar disorder, current episode mixed, moderate F31.62 ; Post traumatic stress disorder F43.10 and Borderline personality disorder F60.3 [facility] [address] [address] 13 Jul, 2017 Bipolar disorder, current episode mixed, moderate F31.62 ; Post traumatic stress disorder F43.10 and Borderline personality disorder F60.3 [facility] [address] [address] 11 Jul, 2017 Pharyngitis, unspecified etiology J02.9 and Streptococcal pharyngitis J02.0 [facility] [address] [place] [id number] [place] [address] 32283- 3827 16 Jun, 2017 Bipolar disorder, current episode mixed, moderate F31.62 ; Post traumatic stress disorder F43.10 and Borderline personality disorder F60.3 [facility] [address] [place] [id number] [place] [address] 86595- 5950 May, [place] [address] [place] [id number] [place] [address] 56491- 7738 May, [facility] [address] [place] [id number] [place] [address] 90919- 4190 May, Bipolar disorder, current episode mixed, moderate F31.62 and Generalized anxiety disorder F41.1 [place] [address] [place] [id number] [place] [address] 11884- 2318 March, Bipolar disorder, current episode mixed, moderate F31.62 and Generalized anxiety disorder F41.1 [facility] [address] [place] [id number] [place] [address] 72217- 2853 04 Mar, 2017 Pelvic pain R10.2 [facility] [id number] [place] [address] 72107- 9344 March, [facility] [address] [place] [id number] [place] [address] 87255- 1490 05 Feb, 2017 Bipolar disorder, current episode mixed, moderate F31.62 and Generalized anxiety disorder F41.1 [place] [address] [place] [id number] [place] [address] 59386- 6872 Jan, [facility] [address] [place] [id number] [place] [address] 71890- 3308 Jan, Bipolar disorder, current episode mixed, moderate F31.62 [facility] [address] [place] [id number] [place] [address]- [address]138 Jan, Bipolar disorder, current episode mixed, moderate F31.62 [facility] [address] [place] [id number] [place] [address] 68115- 1808 Jan, Bilateral low back pain without sciatica M54.5 [facility] [address] [id number] Jan, Dental caries K02.9 and Dental examination Z01.20 [facility] [address] [id number] Jan, Encounter for dental examination and cleaning without abnormal findings Z01.20 [facility] [address] 77685- 8951 Jan, Bipolar disorder, current episode mixed, moderate F31.62 and Generalized anxiety disorder F41.1 [facility] [address] [place] [id number] [place] [address] 80139- 7197 Dec, [facility] [address] 49541- 0104 Dec, Bipolar disorder, current episode mixed, moderate F31.62 and Generalized anxiety disorder F41.1 [facility] [address] [place] [id number] [place] [address] 29178- 3671 Dec, Other fatigue R53.83 and Orthostatic hypotension I95.1 [facility] [address] [place] [id number] [place] [address] [id number] Nov, Dental examination Z01.20 [facility] [address] [place] [id number] [place] [address] 47270 -1172 Nov, Bronchitis J40 [facility] [address] 69907- 6618 Oct, Generalized anxiety disorder F41.1 [facility] [address] [place] [address] 48008- 2896 14 Sep, 2016 Bipolar disorder, current episode mixed, moderate F31.62 and Generalized anxiety disorder F41.1 [facility] [address] [address]- 6145 02 Sep, 2016 Bipolar disorder, current episode mixed, moderate F31.62 and Generalized anxiety disorder F41.1 [facility] [address] [place] [id number] [place] [address] 60279 -2448 08 Jul, 2016 Upper respiratory tract infection, unspecified type J06.9 [facility] [address] [place] [id number] [place] [address] 96976- 1963 Jun, Bipolar disorder, current episode mixed, moderate F31.62 and Generalized anxiety disorder F41.1 [facility] [address] [place] [id number] [place] [address] 96120- 3308 Apr, [facility] [address] [place] [id number] [place] [address] 28531- 2838 Apr, Encounter for test, result positive Z32.01 [facility] [address] [place] [id number] [place] [address] 72172- 8392 March, [facility] [address] [place] [id number] [place] [address] 22606- 0600 March, Bipolar disorder, current episode mixed, moderate F31.62 and Generalized anxiety disorder F41.1 [facility] [address] [address]- 1390 March, Bipolar disorder, current episode mixed, moderate F31.62 and Generalized anxiety disorder F41.1 [facility] [address] [place] [address] 46437- 1792 March, [facility] [id number] [place] [address] 00277- 4519 March, [facility] [address] [place] [id number] [place] [address] 26186- 9865 Feb, [facility] [id number] [place] [address] 48902- 9866 Feb, [facility] [address] [place] [id number] [place] [address] 64051- 3401 06 Feb, 2016 Bipolar disorder, current episode mixed, moderate F31.62 and Generalized anxiety disorder F41.1 [facility] [address] [place] [id number] [place] [address] 74988- 3507 Jan, Abdominal pain R10.9 [facility] [address] [place] [id number] [place] [address] 12894- 8782 Jan, [place] [address] [place] [id number] [place] [address] 69707- 0269 29 Dec, 2015 Dental examination Z01.20 [place] [address] [place] [id number] [place] [address] 78848- 3603 Dec, Dental examination Z01.20 and Dental caries K02.9 [place] [address] [place] [id number] [place] [address] 25290- 9891 Dec, Bipolar disorder, current episode mixed, moderate F31.62 and Generalized anxiety disorder F41.1 [place] [id number] [place] [address] 43940- 4386 Dec, [facility] [id number] [place] [address] 19770- 4658 Nov, Bipolar disorder, current episode mixed, moderate F31.62 ; Generalized anxiety disorder F41.1 and Seizure-like activity R56.9 [facility] [address] [place] [address] 57709- 1936 Oct, [facility] [address] [place] [id number] [place] [address] 40668- 0977 Oct, Bipolar disorder, current episode mixed, moderate F31.62 [facility] [address] [place] [id number] [place] [address] 32892- 6689 14 Oct, 2015 Well woman exam Z01.419 [...] Tobacco use Z72.0 and Hot flashes N95.1 [place] [address] 72433- 0994 09 Oct, 2015 Seizure-like activity R56.9 and Irregular periods N92.6 [place] [address] 70531- 8937 07 Oct, 2015 Bipolar disorder, current episode mixed, moderate F31.62 ; Generalized anxiety disorder F41.1 and Underweight R63.6 [place] [address] 83445- 6601 Oct, [address] [address]- 5254 Oct, Generalized anxiety disorder F41.1 and Unspecified mood [ affective] disorder F39 [facility] [address] 74745 -2807 Oct, Back pain M54.9 and Anxiety F41.9 [facility] [address] 26037- 3748 Oct, [facility] [address] 16811 -2742 Sep, Arm pain, left M79.602 [facility] [address] 89999- 2900 18 Sep, 2015 [facility] [address] [id number] Sep, Dental examination Z01.20 and Dental caries K02.9 [facility] [address] [place] [address] 77954- 8740 Sep, Generalized anxiety disorder F41.1 and Unspecified episodic mood disorder F39 [facility] [address] [place] [id number] [place] [address] 30899- 9942 Sep, Bilateral low back pain without sciatica M54.5 and Seizure- like activity R56.9 [facility] [address] [place] [id number] [place] [address] 74720- 9782 Aug, [facility] [address] [place] [id number] [place] [address] 86107- 9810 Aug, [facility] [address] [place] [address] [id number] [place] [address] 95833- 2097 Aug, [facility] [address] [place] [id number] [place] [address] 00595- 3788 Aug, Visual changes H53.9 and Bilateral low back pain without sciatica M54.5 [facility] [address] [place] [address] 21025- 9424 Jul, [facility] [address] [place] [id number] [place] [address] 79306- 2668 Jun, Bipolar I disorder, most recent episode (or current) mixed, moderate 296.62 ; Generalized anxiety disorder 300.02 and High risk medication use V58.69 [facility] [address] [place] [address] 25643- 0213 Jun, [facility] [id number] [place] [address] 21158- 1093 May, [facility] [address] [place] [address] [id number] [place] [address] 88820- 1880 May, Bipolar I disorder, most recent episode (or current) mixed, moderate 296.62 and Generalized anxiety disorder 300.02 [facility] [id number] [place] [address] [id number] May, Dental examination V72.2 [facility] [address] [place] [address] [id number] [place] [address] 08836- 3636 March, Bipolar I disorder, most recent episode (or current) mixed, moderate 296.62 and Generalized anxiety disorder 300.02 [facility] [address] [id number] [place] [address] 50987- 1426 March, [facility] [id number] [place] [address] 39942- 8846 March, [facility] [id number] [place] [address] 24876- 2696 March, Underweight 783.22 ; Hand pain, right 729.5 and Reflux gastritis 535.40 [facility] [id number] [place] [address] 67185- 9726 Feb, [facility] [id number] [place] [address] 45869- 7246 Feb, [facility] [id number] [place] [address] 51510- 6216 Jan, [facility] [id number] [place] [address] 25634- 7026 18 Jan, 2015 [facility] [id number] [place] [address] 88476- 4546 16 Jan, 2015 [facility] [id number] [place] [address] 23029- 8166 16 Jan, 2015 [facility] [id number] [place] [address] 01429- 4596 Jan, [facility] [id number] [place] [address] 08773- 0656 Jan, [facility] [id number] [place] [address] 33183- 2546 05 Jan, 2015 [facility] [id number] [place] [address] 92234- 4737 Jan, [facility] [place] [facility] [address] [facility] [id number] [place] [address]- 9049 Jan, [facility] [place] [facility] [address] [facility] [id number] [place] [address]- 4588 Jan, [facility] [place] [facility] [address] [facility] [id number] [place] [address]- 5900 Jan, [facility] [place] [facility] [address] [facility] [id number] [place] [address]- 8891 Jan, [facility] [place] [facility] [address] [facility] [id number] [place] [address]- 9848 Dec, 2014 [facility] [place] [facility] [address] [facility] [id number] [place] [address]- 6469 Dec, 2014 [facility] [place] [facility] [address] [facility] [id number] [place] [address]- 3636 Dec, 2014 [facility] [place] [facility] [address] [facility] [id number] [place] [address]- 6559 Dec, 2014 [facility] [place] [facility] [address] [facility] [id number] [place] [address]- 1159 18 Dec, 2014 [facility] [place] [facility] [address] [facility] [id number] [place] [address]- 3727 17 Dec, 2014 [facility] [place] [facility] [address] [facility] [id number] [place] [address]- 5000 17 Dec, 2014 [facility] [place] [facility] [address] [facility] [id number] [address]- 0966 16 Dec, 2014 [facility] [place] [facility] [address] [facility] [id number] [place] [address]- 3797 16 Dec, 2014 [facility] [place] [facility] [address] [facility] [id number] [address]- 3172 05 Dec, 2014 [facility] [place] [facility] [address] [facility] [id number], [place] [address]- 0794 Dec, 2014 [facility] [place] [facility] [address] [id number] [place] [address]- 4020 Dec, 2014 [facility] [place] [facility] [address] [id number] [place] [address]- 7652 Dec, 2014 [facility] [place] [facility] [address] [id number] [place] [address]- 9011 Dec, 2014 [facility] [place] [facility] [address] [id number] [place] [address]- 5917 Dec, 2014 [facility] [place] [facility] [address] [id number] [place] [address]- 0002 Dec, 2014 [facility] [place] [facility] [address] [id number] [place] [address] Dec, 2014 [facility] [place] [facility] [address] [id number] [place] [address] Dec, [facility] [place] [facility] [address] [id number] [place] [address] Dec, [facility] [place] [facility] [address] [id number] [place] [address] Nov, [facility] [place] [facility] [address] [id number] [place] [address] Nov, [facility] [place] [facility] [address] [id number], [place] [address] Nov, [facility] [place] [facility] [address] [id number], [place] [address] Nov, [facility] [place] [facility] [address] [id number] [place] [address] Nov, [facility] [place] [facility] [address] [id number] [place] [address] Nov, [facility] [place] [facility] [address] [id number] [place] [id number] Nov, [facility] [place] [facility] [address] [id number] [place] [address] Nov, [facility] [address] [id number] [place] [address] Nov, [facility] [address] [id number] [place] [id number] Nov, [facility] [address] [id number] [place] [address] Nov, [facility] [address] [id number] [place] [address] Nov, [facility] [address] [id number] [place] [address] Oct, [facility] [address] [id number] [place] [address] Oct, [facility] [address] [id number] [place] [address] 64[address] Oct, [facility] [address] [id number] [place] [address] 30 Oct, 2014 [facility] [address] [id number] [place] [address] Oct, [facility] [address] [id number] [place] [address] Oct, [facility] [address] [id number] [place] [address] 8194 Oct, [facility] [address] [id number] [place] [address] 5400 Oct, [facility] [place] [facility] [address] [id number] [place] [address] 5181 17 Oct, 2014 [facility] [address] [id number] [place] [address] Oct, [facility] [address] [facility] [id number] [place] [address] 7017 05 Oct, 2014 [facility] [place] [facility] [address] [id number] [place] [address] 2435 Oct, [facility] [place] [facility] [address] [id number] [place] [address] 9841 Sep, [facility] [place] [facility] [address] [id number] [place] [address] 4080 Sep, [facility] [place] [facility] [address] [id number] [place] [address]- 6062 Sep, [facility] [place] [facility] [address] [id number] [place] [address]- 1169 Sep, [facility] [place] [facility] [address] [id number] [place] [address] 8413 Sep, [facility] [place] [facility] [address] [id number] [place] [address]- 1424 Sep, [facility] [place] [facility] [address] [id number] [place] [address]- 7021 Sep, [facility] [place] [facility] [address] [id number] [place] [address] Sep, [facility] [place] [facility] [address] [id number] [place] [address] 9646 Aug, [facility] [place] [facility] [address] [id number] [place] [address]- 7847 Aug, [facility] [place] [facility] [address] [id number] [place] [address] 8561 Aug, [facility] [place] [facility] [address] [id number] [place] [address]- 8047 Aug, [facility] [place] [facility] [address] [id number] [place] [address] 2041 Aug, [facility] [place] [facility] [address] [id number] [place] [address] Aug, [facility] [place] [facility] [address] [id number] [place] [address]- 8975 08 Aug, 2014 [facility] [place] [facility] [address] [id number] [place] [address]- 4262 08 Aug, 2014 [facility] [place] [facility] [address] [id number] [place] [address] 3143 Aug, [facility] [place] [facility] [address] [id number] [place] [address] Aug, [facility] [place] [facility] [address] [id number] [place] [address]- 8211 Aug, [facility] [place] [facility] [address] [id number] [place] [address]- 3170 Aug, [facility] [place] [facility] [address] [id number] [place] [address]- 3688 Aug, [facility] [place] [facility] [address] [id number] [place] [address]- 0066 Jul, [facility] [place] [facility] [address] [id number] [place] [address]- 7730 Jul, [facility] [place] [facility] [address] [id number] [place] [address]- 0791 Jul, [facility] [place] [facility] [address] [id number] [place] [address] 2880 Jul, [facility] [place] [facility] [address] [id number], [place] [address] 68[address] Jun, [facility] [place] [facility] [address] [id number] [address] 2804 Jun, [facility] [place] [facility] [address] [id number] [place] [address]- 4261 Jun, [facility] [place] [facility] [address] [id number] [place] [address] 1918 Jun, [facility] [place] [facility] [address] [id number] [place] [address]- 1707 Jun, [facility] [place] [facility] [address] [id number] [place] [address]- 0147 Jun, [facility] [place] [facility] [address] [id number] [place] [address] 8808 May, [facility] [place] [facility] [address] [id number] [place] [address]- 0530 May, [facility] [place] [facility] [address] [id number] [place] [address]- 7601 May, [facility] [place] [facility] [address] [id number] [place] [address]- 5200 May, [facility] [place] [facility] [address] [id number] [place] [address]- 1440 Apr, [facility] [place] [facility] [address] [id number] [place] [address]- 6196 Apr, [facility] [place] [facility] [address] [id number] [place] [address]- 0319 March, [facility] [place] [facility] [address] [id number] [place] [address]- 6241 March, [facility] [place] [facility] [address] [id number] [place] [address]- 6495 March, [facility] [place] [facility] [address] [id number] [place] [address]- 6652 March, [facility] [place] [facility] [address] [id number] [place] [address]- 1499 March, [facility] [place] [facility] [address] [id number] [place] [address]- 5055 March, [facility] [place] [facility] [address] [id number] [place] [address]- 0598 Feb, [facility] [place] [facility] [address] [id number] [place] [address]- 9400 Feb, [facility] [place] [facility] [address] [id number] [place] [address]- 4391 Dec, [facility] [place] [facility] [address] [id number] [place] [address]- 7315 Dec, [facility] [place] [facility] [address] [id number] [place] [address]- 2054 Nov, [facility] [place] [facility] [address] [id number] [place] [address]- 2950 Nov, [facility] [place] [facility] [address] [id number] [place] [address]- 2383 Sep, [facility] [place] [facility] [address] [id number] [place] [address]- 7444 Sep, [facility] [place] [facility] [address] [id number] [place] [address]- 4102 Sep, [facility] [place] [facility] [address] [id number] [place] [address]- 0444 Sep, [facility] [place] [facility] [address] [id number], [place] [address]- 3332 Sep, [facility] [place] [facility] [address] [id number] [place] [address]- 9955 Sep, [facility] [place] [facility] [address] [id number], [place] [address]- 8627 Sep, [facility] [place] [facility] [address] [id number], [place] [address]- 2214 Aug, [facility] [place] [facility] [address] [id number], [place] [address]- 3561 Aug, [facility] [place] [facility] [address] [id number], [place] [address]- 0581 Aug, [facility] [place] [facility] [address] [id number], [place] [address]- 7633 Aug, [facility] [place] [facility] [address] [id number] [address] Aug, [facility] [place] [facility] [address] [id number], [place] [address]- 0719 Aug, [facility] [address] [id number] [place] [address]- 8570 Jul, [facility] [place] [facility] [address] [id number] [place] [address]- 3573 Jul, [facility] [place] [facility] [address] [id number] [place] [address]- 0683 16 Jul, 2013 [facility] [place] [facility] [address] [id number] [place] [address]- 5270 Jul, [facility] [place] [facility] [address] [id number] [place] [address]- 5169 Jun, [facility] [place] [facility] [address] [id number] [place] [address]- 7725 Jun, [facility] [address] [id number] [place] [address]- 2096 Jun, [facility] [place] [facility] [address] [id number] [place] [address]- 6496 Jun, [facility] [place] [facility] [address] [id number] [place] [address]- 0161 Jun, [facility] [place] [facility] [address] [id number] [place] [address]- 3454 Jun, [facility] [place] [facility] [address] [id number] [place] [address]- 3055 Jun, [facility] [place] [facility] [address] [id number] [place] [address]- 7145 May, [facility] [place] [facility] [address] [id number] [place] [address]- 0322 May, [facility] [place] [facility] [address] [id number] [place] [address]- 5709 May, [facility] [place] [facility] [address] [id number] [place] [address]- 8715 May, [facility] [place] [facility] [address] [id number] [place] [address]- 2899 13 May, 2013 [facility] [place] [facility] [address] [id number] [place] [address]- 6517 05 May, 2013 [facility] [place] [facility] [address] [id number] [place] [address]- 4980 03 May, 2013 [facility] [place] [facility] [address] [id number] [place] [address]- 9663 28 Apr, 2013 [facility] [place] [facility] [address] [id number] [place] [address]- 5484 27 Apr, 2013 [facility] [place] [facility] [address] [id number] [place] [address]- 1246 27 Apr, 2013 [facility] [place] [facility] [address] [id number] [place] [address]- 3935 26 Apr, 2013 [facility] [place] [facility] [address] [id number] [place] [address]- 9975 20 Apr, 2013 [facility] [place] [facility] [address] [id number] [place] [address]- 1159 18 Apr, 2013 [facility] [place] [facility] [address] [id number] [place] [address]- 7430 18 Apr, 2013 [facility] [place] [facility] [address] [id number] [place] [address]- 0069 18 Apr, 2013 [facility] [place] [facility] [address] [id number] [place] [address]- 6943 17 Apr, 2013 [facility] [place] [facility] [address] [id number] [place] [address]- 2804 14 Apr, 2013 [facility] [place] [facility] [address] [id number] [place] [address]- 7417 14 Apr, 2013 [facility] [place] [facility] [address] [id number] [place] [address]- 3350 11 Apr, 2013 [facility] [place] [facility] [address] [id number] [place] [address]- 0529 Apr, [facility] [address] [id number] [place] [address]- 9757 Apr, [facility] [place] [facility] [address] [id number] [place] [address]- 4926 Apr, [facility] [place] [facility] [address] [id number] [place] [address]- 2104 Apr, [facility] [place] [facility] [address] [id number] [place] [address]- 4963 Apr, [facility] [place] [facility] [address] [id number] [place] [address]- 8225 Apr, [facility] [place] [facility] [address] [id number] [place] [address]- 9163 Apr, [facility] [place] [facility] [address] [id number] [place] [address]- 6324 March, [facility] [place] [facility] [address] [id number] [place] [address]- 8924 March, [facility] [place] [facility] [address] [id number] [place] [address]- 0945 March, [facility] [place] [facility] [address] [id number] [place] [address]- 3668 March, [facility] [place] [facility] [address] [id number] [place] [address]- 8737 March, [facility] [place] [facility] [address] [id number], [place] [address]- 3213 March, [facility] [place] [facility] [address] [id number] [place] [address]- 4702 March, [facility] [place] [facility] [address] [id number] [place] [address]- 6463 Feb, [facility] [place] [facility] [address] [id number] [place] [address]- 6311 Feb, [facility] [place] [facility] [address] [id number] [place] [address]- 4566 27 Jan, 2013 [facility] [address] [id number] [place] [address]- 1984 18 Jan, 2013 [facility] [address] [id number] [place] [address]- 7646 15 Jan, 2013 [facility] [address] [id number] [place] [address]- 6342 14 Jan, 2013 [facility] [address] [id number] [place] [address]- 4950 13 Jan, 2013 [facility] [address] [id number] [place] [address]- 8587 12 Jan, 2013 [facility] [address] [id number] [place] [address]- 8672 11 Jan, 2013 [facility] [address] [id number] [place] [address]- 5125 09 Jan, 2013 [facility] [address] [id number] [place] [address]- 7442 08 Jan, 2013 [facility] [address] [id number] [place] [address]- 3204 07 Jan, 2013 [facility] [address] [id number] [place] [address]- 3787 06 Jan, 2013 [facility] [address] [id number] [place] [address]- 3615 17 Nov, 2012 [facility] [address] [id number] [place] [address]- 5560 19 Oct, 2012 [facility] [place] [facility] [address] [id number] [place] [address]- 9055 Oct, [facility] [place] [facility] [address] [id number] [place] [address]- 5770 Oct, [facility] [address] [id number] [place] [address]- 9199 Oct, [facility] [place] [facility] [address] [id number] [place] [address]- 2203 Sep, [facility] [place] [facility] [address] [id number] [place] [address]- 5723 Sep, [facility] [place] [facility] [address] [id number] [place] [address]- 0178 Sep, [facility] [place] [facility] [address] [id number] [place] [address]- 5370 Sep, [facility] [place] [facility] [address] [id number] [place] [address]- 0405 Sep, [facility] [place] [facility] [address] [id number] [place] [address]- 6574 Sep, [facility] [place] [facility] [address] [id number] [place] [address]- 9642 Sep, [facility] [place] [facility] [address] [id number] [place] [address]- 1843 Sep, [facility] [place] [facility] [address] [id number] [place] [address]- 2398 Sep, [facility] [place] [facility] [address] [id number] [place] [address]- 9985 Sep, [facility] [place] [facility] [address] [id number] [place] [address]- 3847 Sep, [facility] [place] [facility] [address] [id number] [place] [address]- 0075 Aug, [facility] [place] [facility] [address] [id number] [place] [address]- 6804 Aug, [facility] [place] [facility] [address] [id number] [place] [address]- 4903 Aug, [facility] [place] [facility] [address] [id number] [place] [address]- 3630 Jul, [facility] [place] [facility] [address] [id number] [place] [address]- 3366 25 Jul, 2012 [facility] [place] [facility] [address] [id number] [place] [address]- 3628 19 Jul, 2012 [facility] [place] [facility] [address] [id number] [place] [address]- 1696 17 Jul, 2012 [facility] [place] [facility] [address] [id number] [place] [address]- 0094 20 Jun, 2012 [facility] [place] [facility] [address] [id number] [place] [address]- 2014 16 Jun, 2012 [facility] [place] [facility] [address] [id number] [place] [address]- 5081 15 Jun, 2012 [facility] [place] [facility] [address] [id number] [place] [address]- 2540 15 Jun, 2012 [facility] [place] [facility] [address] [id number] [place] [address]- 7901 13 Jun, 2012 [facility] [place] [facility] [address] [id number] [place] [address]- 3472 18 Mar, 2012 [facility] [place] [facility] [address] [id number] [place] [address]- 0992 04 Feb, 2012 [facility] [place] [facility] [address] [id number] [place] [address]- 4796 28 Jan, 2012 [facility] [place] [facility] [address] [id number] [place] [address]- 7648 27 Jan, 2012 [facility] [place] [facility] [address] [id number] [place] [address]- 1223 22 Jan, 2012 [facility] [place] [facility] [address] [id number] [place] [address]- 5264 14 Jan, 2012 [facility] [place] [facility] [address] [id number] [place] [address]- 5021 14 Jan, 2012 [facility] [place] [facility] [address] [id number] [place] [address]- 9537 14 Jan, 2012 [facility] [place] [facility] [address] [id number] [place] [address] 254 28 Dec, 2011 [facility] [place] [facility] [address] [id number] [place] [address] 2546 27 Dec, 2011 [facility] [place] [facility] [address] [id number] [place] [address] 2546 23 Dec, 2011 [facility] [place] [facility] [address] [id number] [place] [address] 2546 21 Dec, 2011 [facility] [place] [facility] [address] [id number] [place] [address]- 2545 20 Dec, 2011 [facility] [place] [facility] [address] [id number] [place] [address]- 0716 19 Dec, 2011 [facility] [place] [facility] [address] [id number] [place] [address]- 7882 17 Dec, 2011 [facility] [place] [facility] [address] [facility] [id number] [place] [address]- 4357 16 Dec, 2011 [facility] [place] [facility] [address] [id number] [place] [address]- 0934 31 Nov, 2011 [facility] [place] [facility] [address] [facility] [id number] [place] [address]- 5468 13 Oct, 2011 [facility] [place] [facility] [address] [id number] [place] [address]- 6609 18 Sep, 2011 [facility] [place] [facility] [address] [id number] [place] [address]- 2544 18 Sep, 2011 [facility] [place] [facility] [address] [id number] [place] [address] 2548 17 Sep, 2011 [facility] [place] [facility] [address] [id number] [place] [address] 2546 17 Sep, 2011 [facility] [place] [facility] [address] [id number] [place] [address]- 2549 07 Sep, 2011 [facility] [place] [facility] [address] [id number] [place] [address]- 7416 Sep, [facility] [address] [facility] [id number] [place] [address]- 8666 Jan, [facility] [address] [facility] [id number] [place] [address]- 2546 Apr, IMMUNIZATIONS No Known Immunizations SOCIAL HISTORY Never Assessed REASON FOR VISIT EMR-[facility] PLAN OF CARE VITAL SIGNS MEDICATIONS Unknown [...] History Left ovary removed 12/2017 Hospitalization History [facility] Admission x4 2009 most recent admission Hospitalization History [facility]; overdose 2010 Hospitalization History child 11/29/2016
--- OUTSIDE RECORDS SUMMARY | 2019-03-04 16:45 | XMS REPORT ---
Author Author TOMASZ MARGARITA [facility] Address [address] [place] [address] Care Team Providers Care Library Services Assistant Name Role Phone TOMASZ, MARGARITA Unavailable PROBLEMS Type Condition ICD9-CM Code LBE81-LC Code Onset Dates Condition Status SNOMED Code Problem Generalized anxiety disorder F41.1 Active 31455776 Problem Acute non intractable tension-type headache G44.209 Active 385031182 Problem Acute right-sided low back pain with right-sided sciatica M54.41 Active 440442205 Problem Post traumatic stress disorder F43.10 Active 56649856 Problem Bipolar disorder, current episode mixed, moderate F31.62 Active 242800240 Problem Endometriosis N80.9 Active 068781214 Problem Borderline personality disorder F60.3 Active 87995990 ALLERGIES No Information ENCOUNTERS Encounter Location Date Diagnosis [facility] [id number] [place] [address] 99888- 5312 Sep, Bipolar disorder, current episode mixed, moderate F31.62 [facility] [id number] [place] [address] 96897- 2626 Aug, Bipolar disorder, current episode mixed, moderate F31.62 [facility] [id number] [place] [address] 04696- 3271 Jul, Thrombophlebitis I80.9 and Pelvic pain R10.2 [facility] [id number] [place] [address] 19827- 1221 Jul, Bipolar disorder, current episode mixed, moderate F31.62 ; Post traumatic stress disorder F43.10 and Borderline personality disorder F60.3 [facility] [id number] [place] [address] 71520- 7161 Jun, Bipolar disorder, current episode mixed, moderate F31.62 [facility] [address] [place] [address] 12384- 8991 13 May, 2018 Palpitations R00.2 [facility] [id number] [place] [address] 02607- 0352 13 May, 2018 Palpitations R00.2 [facility] [id number] [place] [address] 76196- 5853 12 May, 2018 Palpitations R00.2 and Frequent bowel movements R19.4 [facility] [id number] [place] [address] 05649- 0645 05 May, 2018 Bipolar disorder, current episode mixed, moderate F31.62 ; Post traumatic stress disorder F43.10 and Borderline personality disorder F60.3 [facility] [address] [place] [address] [id number] 15 Apr, 2018 Dental examination Z01.20 [facility] [id number] [place] [address] 02431 -3655 15 Apr, 2018 [facility] [id number] [place] [address] 32618- 9734 15 Apr, 2018 Dental examination Z01.20 [facility] IN [facility] [id number] [place] [address] 31152 -1339 15 Apr, 2018 Tooth pain K08.89 [facility] [id number] [place] [address] 56250- 3608 06 Apr, 2018 Bipolar disorder, current episode mixed, moderate F31.62 ; Post traumatic stress disorder F43.10 and Borderline personality disorder F60.3 [facility] [id number] [place] [address] 31558 -1915 18 Mar, 2018 Abdominal pain R10.9 ; UTI symptoms R39.9 and Other microscopic hematuria R31.29 [facility] [id number] [place] [address] 16015- 2769 March, [facility] [id number] [place] [address] 52740- 3979 March, Bipolar disorder, current episode mixed, moderate F31.62 ; Post traumatic stress disorder F43.10 and Borderline personality disorder F60.3 [facility] [id number] [place] [address] 17656- 3791 Feb, Encounter for immunization Z23 [facility] [id number] [place] [address] 74682- 0491 Feb, Bipolar disorder, current episode mixed, moderate F31.62 ; Post traumatic stress disorder F43.10 and Borderline personality disorder F60.3 [facility] [id number] [place] [address] 49328- 5773 Feb, Bipolar disorder, current episode mixed, moderate F31.62 ; Post traumatic stress disorder F43.10 ; Borderline personality disorder F60.3 and Other mcc (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 Z79.899 [facility] [address] 94023- 0601 Jan, Encounter for immunization Z23 [facility] [id number] [place] [address] 68448- 7479 Jan, [facility] [address] 14694- 8167 Jan, Bipolar disorder, current episode mixed, moderate F31.62 [facility] [id number] [place] [address] 47482 -7412 Jan, Lumbar back pain M54.5 [facility] [id number] [place] [address] 21453- 7383 Dec, Low back pain M54.5 [facility] [id number] [place] [address] 71333- 0057 Dec, Bipolar disorder, current episode mixed, moderate F31.62 [facility] [id number] [place] [address] 77532- 6853 Dec, Generalized anxiety disorder F41.1 and Bipolar disorder, current episode mixed, moderate F31.62 [facility] [id number] [place] [address] 80881 -9904 Nov, Acute non intractable tension-type headache G44.209 [facility] [id number] [place] [address] 3689 Nov, Bipolar disorder, current episode mixed, moderate F31.62 ; Post traumatic stress disorder F43.10 and Borderline personality disorder F60.3 [place] [address] 15385198- 9896 Nov, Bipolar disorder, current episode mixed, moderate F31.62 [facility] [place] [address] 264390 -5131 Nov, Abdominal pain R10.9 ; History of PCOS Z87.42 ; History of endometriosis Z87.42 and Pelvic pain R10.2 [place] [address] 76783- 1763 Nov, [facility] [address] 93487 -6108 Oct, History of PCOS Z87.42 ; History of endometriosis Z87.42 and Pain R52 [facility] [id number] [place] [address] 07778- 8767 Oct, Bipolar disorder, current episode mixed, moderate F31.62 ; Post traumatic stress disorder F43.10 and Borderline personality disorder F60.3 [facility] [id number] [place] [address] 52328- 5432 Oct, Bipolar disorder, current episode mixed, moderate F31.62 [place] [address] 18039- 7245 Sep, Bipolar disorder, current episode mixed, moderate F31.62 ; Post traumatic stress disorder F43.10 ; Borderline personality disorder F60.3 and Other mcc (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 Z79.899 [place] [address] 61854- 5231 Sep, Bipolar disorder, current episode mixed, moderate F31.62 [facility] [address] [place] [address] 71089 -3355 Sep, Endometriosis N80.9 and Acute right-sided low back pain with right-sided sciatica M54.41 [facility] [id number] [place] [address] 65857- 6934 Aug, [place] [place] [id number] [place] [address] 92324- 5848 Aug, Bipolar disorder, current episode mixed, moderate F31.62 ; Post traumatic stress disorder F43.10 and Borderline personality disorder F60.3 [facility] [place] [id number] [place] [address] 90324- 8071 Aug, Bipolar disorder, current episode mixed, moderate F31.62 ; Post traumatic stress disorder F43.10 and Borderline personality disorder F60.3 [facility] [id number] [place] [address] 99294- 3439 13 Jul, 2017 Bipolar disorder, current episode mixed, moderate F31.62 ; Post traumatic stress disorder F43.10 and Borderline personality disorder F60.3 [facility] IN [facility] [address] [place] [address] 52210 -4727 11 Jul, 2017 Pharyngitis, unspecified etiology J02.9 and Streptococcal pharyngitis J02.0 [place] [address] [place] [address] 96413- 1128 Jun, Bipolar disorder, current episode mixed, moderate F31.62 ; Post traumatic stress disorder F43.10 and Borderline personality disorder F60.3 [facility] [place] [id number] [place] [address] 32642- 8345 May, [place] [place] [id number] [place] [address] 96474- 3790 May, [facility] [id number] [place] [address] 10615- 0011 May, Bipolar disorder, current episode mixed, moderate F31.62 and Generalized anxiety disorder F41.1 [facility] [address] 69175- 6579 March, Bipolar disorder, current episode mixed, moderate F31.62 and Generalized anxiety disorder F41.1 [facility] [address] 17658- 8736 March, Pelvic pain R10.2 [facility] [address] 15[address]- 5095 March, [facility] [address] 71988- 9070 Feb, Bipolar disorder, current episode mixed, moderate F31.62 and Generalized anxiety disorder F41.1 [facility] [address] 87052- 1923 Jan, [facility] [address] 24276- 7777 Jan, Bipolar disorder, current episode mixed, moderate F31.62 [facility] [address] 67784- 2295 Jan, Bipolar disorder, current episode mixed, moderate F31.62 [facility] [address] 89729- 7232 Jan, Bilateral low back pain without sciatica M54.5 [facility] [address] [id number] Jan, Dental caries K02.9 and Dental examination Z01.20 [facility] [address] [id number] Jan, Encounter for dental examination and cleaning without abnormal findings Z01.20 [facility] [id number] [place] [address] 41857- 4536 06 Jan, 2017 Bipolar disorder, current episode mixed, moderate F31.62 and Generalized anxiety disorder F41.1 [facility] [address] [place] [address] 13187- 8983 Dec, [facility] [address] 33882- 5860 Dec, Bipolar disorder, current episode mixed, moderate F31.62 and Generalized anxiety disorder F41.1 [place] [address] 95988- 6588 Dec, Other fatigue R53.83 and Orthostatic hypotension I95.1 [facility] [id number] [place] [address] [id number] Nov, Dental examination Z01.20 [facility] [id number] [place] [address] 60615 -8050 Nov, Bronchitis J40 [place] [address] 55515- 6680 Oct, Generalized anxiety disorder F41.1 [facility] [id number] [place] [address] 10393- 2672 Sep, Bipolar disorder, current episode mixed, moderate F31.62 and Generalized anxiety disorder F41.1 [place] [id number] [place] [address] 99403- 9109 02 Sep, 2016 Bipolar disorder, current episode mixed, moderate F31.62 and Generalized anxiety disorder F41.1 [facility] [id number] [place] [address] 55980 -2559 08 Jul, 2016 Upper respiratory tract infection, unspecified type J06.9 [facility] [id number] [place] [address] 17899- 0819 Jun, Bipolar disorder, current episode mixed, moderate F31.62 and Generalized anxiety disorder F41.1 [facility] [id number] [place] [address] 91160- 2783 Apr, [facility] [address] 09291- 7582 Apr, Encounter for test, result positive Z32.01 [facility] [id number] [place] [address] 68880- 2995 March, [facility] [id number] [place] [address] 15492- 7182 March, Bipolar disorder, current episode mixed, moderate F31.62 and Generalized anxiety disorder F41.1 [facility] [id number] [place] [address] 00009- 0709 March, Bipolar disorder, current episode mixed, moderate F31.62 and Generalized anxiety disorder F41.1 [facility] [id number] [place] [address] 13137- 2793 March, [facility] [id number] [place] [address] 53879- 4698 March, [facility] [id number] [place] [address] 47102- 9306 Feb, [facility] [id number] [place] [address] 50452- 7715 Feb, [facility] [id number] [place] [address] 28549- 0602 Feb, Bipolar disorder, current episode mixed, moderate F31.62 and Generalized anxiety disorder F41.1 [facility] [address] [place] [address] 58779- 5945 Jan, Abdominal pain R10.9 [facility] [id number] [place] [address] 49221- 9992 14 Jan, 2016 [facility] [id number] [place] [address] 11558- 9844 Dec, Dental examination Z01.20 [facility] [address] [place] [address] 31189- 0334 Dec, Dental examination Z01.20 and Dental caries K02.9 [facility] [address] [address]- 2746 15 Dec, 2015 Bipolar disorder, current episode mixed, moderate F31.62 and Generalized anxiety disorder F41.1 [place] [address] [place] [address] 27967- 7475 15 Dec, 2015 [place] [address] [place] [address] 36114- 8322 Nov, Bipolar disorder, current episode mixed, moderate F31.62 ; Generalized anxiety disorder F41.1 and Seizure-like activity R56.[address] [place] [address] 71242- 2037 Oct, [place] [id number] [place] [address] 19724- 2718 Oct, Bipolar disorder, current episode mixed, moderate F31.62 [place] [id number] [place] [address] 39207- 9864 14 Oct, 2015 Well woman exam Z01.419 [...] Tobacco use Z72.0 and Hot flashes N95.1 [place] [address] [place] [address] 04515- 7964 09 Oct, 2015 Seizure-like activity R56.9 and Irregular periods N92.6 [place] [id number] [place] [address] 38488- 4640 07 Oct, 2015 Bipolar disorder, current episode mixed, moderate F31.62 ; Generalized anxiety disorder F41.1 and Underweight R63.6 [place] [id number] [place] [address] 85045- 3918 Oct, [facility] [address] [place] [address] 37582- 1011 Oct, Generalized anxiety disorder F41.1 and Unspecified mood [ affective] disorder F39 [facility] [id number] [place] [address] 29741 -4865 Oct, Back pain M54.9 and Anxiety F41.9 [facility] [id number] [place] [address] 46337- 1978 Oct, [facility] [id number] [place] [address] 72733 -0653 Sep, Arm pain, left M79.602 [facility] [id number] [place] [address] 15523- 1670 Sep, [facility] [address] [id number] Sep, Dental examination Z01.20 and Dental caries K02.9 [facility] [id number] [place] [address] 95735- 5616 Sep, Generalized anxiety disorder F41.1 and Unspecified episodic mood disorder F39 [facility] [address] [place] [address] 14366- 5879 Sep, Bilateral low back pain without sciatica M54.5 and Seizure- like activity R56.9 [facility] [id number] [place] [address] 75322- 9941 Aug, [facility] [id number] [place] [address] 28007- 7158 Aug, [facility] [id number] [place] [address] 19554- 2633 Aug, [facility] [address] [place] [address] 26307- 7314 Aug, Visual changes H53.9 and Bilateral low back pain without sciatica M54.5 [facility] [address] [place] [address] 87652- 1737 Jul, [facility] [id number] [place] [address] 25225- 5299 Jun, Bipolar I disorder, most recent episode (or current) mixed, moderate 296.62 ; Generalized anxiety disorder 300.02 and High risk medication use V58.69 [facility] [id number] [place] [address] 80936- 9093 Jun, [facility] [id number] [place] [address] 43299- 6943 May, [facility] [id number] [place] [address] 29763- 4008 May, Bipolar I disorder, most recent episode (or current) mixed, moderate 296.62 and Generalized anxiety disorder 300.02 [facility] [id number] [place] [address] [id number] May, Dental examination V72.2 [facility] [id number] [place] [address] 09118- 8215 March, Bipolar I disorder, most recent episode (or current) mixed, moderate 296.62 and Generalized anxiety disorder 300.02 [facility] [address] [place] [address] 87179- 4374 March, [facility] [address] [place] [address] 75783- 3019 March, [facility] [id number] [place] [address] 84187- 2152 March, Underweight 783.22 ; Hand pain, right 729.5 and Reflux gastritis 535.40 [facility] [address] [place] [address] 23559- 2409 Feb, [facility] [address] [place] [address] 77381- 8007 Feb, [facility] [id number] [place] [address]- 2608 18 Jan, 2014 [facility] [place] [facility] [address] [id number] [place] [address]- 1970 18 Jan, 2015 [facility] [place] [facility] [address] [id number] [place] [address]- 2809 16 Jan, 2014 [facility] [place] [facility] [address] [id number] [place] [address]- 2555 16 Jan, 2014 [facility] [place] [facility] [address] [id number] [place] [address]- 0715 13 Jan, 2014 [facility] [place] [facility] [address] [id number] [place] [address]- 8012 13 Jan, 2014 [facility] [place] [facility] [address] [id number] [place] [address]- 2777 05 Jan, 2015 [facility] [place] [facility] [address] [id number] [place] [address]- 2856 05 Jan, 2014 [facility] [place] [facility] [address] [id number] [place] [address]- 3349 04 Jan, 2015 [facility] [place] [facility] [address] [id number] [place] [address]- 5280 04 Jan, 2014 [facility] [place] [facility] [address] [facility] [id number] [place] [address]- 3553 Jan, [facility] [place] [facility] [address] [id number] [place] [address]- 7212 Jan, 2014 [facility] [place] [facility] [address] [id number] [place] [address]- 9052 Dec, [facility] [place] [facility] [address] [id number] [place] [address]- 9947 Dec, [facility] [place] [facility] [address] [id number] [place] [address]- 7986 Dec, [facility] [place] [facility] [address] [id number] [place] 4636 Dec, [facility] [place] [facility] [address] [id number] [place] [address]- 7776 18 Dec, 2014 [facility] [place] [facility] [address] [facility] [id number] [place] [address]- 7085 17 Dec, 2014 [facility] [place] [facility] [address] [facility] [id number] [place] [address]- 0363 Dec, 2014 [facility] [place] [facility] [address] [facility] [id number] [place] [address]- 3339 16 Dec, 2014 [facility] [place] [facility] [address] [facility] [id number] [place] [address]- 5195 Dec, 2014 [facility] [place] [facility] [address] [facility] [id number] [place] [address]- 5736 05 Dec, 2014 [facility] [place] [facility] [address] [place] [id number] [place] [address]- 4942 Dec, 2014 [facility] [place] [facility] [address] [facility] [id number] [place] [address]- 1486 05 Dec, 2014 [facility] [place] [facility] [address] [facility] [id number] [place] [address]- 5822 05 Dec, 2014 [facility] [place] [facility] [address] [facility] [id number] [place] [address]- 3308 04 Dec, 2014 [facility] [place] [facility] [address] [facility] [id number] [place] [address]- 0564 Dec, 2014 [facility] [place] [facility] [address] [facility] [id number], [place] [address]- 2162 Dec, 2014 [facility] [place] [facility] [address] [facility] [id number] [place] [address]- 9751 Dec, 2014 [facility] [place] [facility] [address] [facility] [id number], [place] [address]- 9006 Dec, 2014 [facility] [place] [facility] [address] [facility] [id number], [place] [address] Dec, [facility] [place] [facility] [address] [id number] [place] [address] Nov, [facility] [place] [facility] [address] [id number] [place] [address] Nov, [facility] [place] [facility] [address] [id number] [place] [address] Nov, [facility] [place] [facility] [address] [id number] [place] [address] Nov, [facility] [place] [facility] [address] [id number] [place] [address] Nov, [facility] [place] [facility] [address] [id number] [place] [address] Nov, [facility] [place] [facility] [id number] [id number] Nov, [facility] [place] [facility] [address] [id number] [place] [address] Nov, [facility] [place] [facility] [address] [id number] [place] [address] Nov, [facility] [place] [facility] [address] [id number] [id number] Nov, [facility] [place] [facility] [address] [id number] [place] [address] Nov, [facility] [place] [facility] [address] [id number] [place] [address] Nov, [facility] [place] [facility] [address] [id number] [place] [address] Oct, [facility] [place] [facility] [address] [id number] [place] [address] Oct, [facility] [place] [facility] [address] [id number] [place] [address] Oct, [facility] [place] [facility] [address] [id number] [place] [address] Oct, [facility] [place] [facility] [address] [id number] [place] [address] [address] Oct, [facility] [place] [facility] [address] [id number] [place] [address] Oct, [facility] [place] [facility] [address] [facility] [id number] [place] [address] Oct, [facility] [place] [facility] [address] [id number] [place] [address] Oct, [facility] [place] [facility] [address] [id number] [place] [address] Oct, [facility] [place] [facility] [address] [id number] [place] [address] Oct, [facility] [place] [facility] [address] [id number] [place] [address] 9495 Oct, [facility] [place] [facility] [address] [id number] [place] [address] 8066 Oct, [facility] [place] [facility] [address] [id number] [place] [address] 1360 Sep, [facility] [place] [facility] [address] [id number] [place] [address] 1048 Sep, [facility] [place] [facility] [address] [id number], [place] [address] Sep, [facility] [place] [facility] [address] [id number], [place] [address] 95[address] Sep, [facility] [place] [facility] [address] [id number] [place] [address] Sep, [facility] [place] [facility] [address] [id number], [place] [address] Sep, [facility] [place] [facility] [address] [facility] [id number], [place] [address]- [address] Sep, [facility] [place] [facility] [address] [id number] [place] [address]- 1613 Sep, [facility] [place] [facility] [address] [id number] [place] [address]- 1079 Aug, [facility] [place] [facility] [address] [id number] [place] [address]- 4746 Aug, [facility] [place] [facility] [address] [id number] [place] [address] Aug, [facility] [place] [facility] [address] [id number] [place] [address]- 0637 Aug, [facility] [place] [facility] [address] [id number] [place] [address]- 3140 Aug, [facility] [place] [facility] [address] [id number] [place] [address]- 1027 Aug, [facility] [place] [facility] [address] [id number] [place] [address]- 6164 Aug, [facility] [place] [facility] [address] [id number] [place] [address]- 2538 08 Aug, 2014 [facility] [place] [facility] [address] [id number] [place] [address]- 5801 Aug, [facility] [place] [facility] [address] [id number] [place] [address]- 1536 Aug, [facility] [place] [facility] [address] [id number] [place] [address]- 0415 Aug, [facility] [place] [facility] [address] [id number] [place] [address]- 7558 07 Aug, 2014 [facility] [place] [facility] [address] [id number] [place] [address] Aug, [facility] [place] [facility] [address] [id number] [place] [address]- 7264 Jul, [facility] [place] [facility] [address] [id number] [place] [address] Jul, [facility] [place] [facility] [address] [id number] [place] [address]- 6257 Jul, [facility] [place] [facility] [address] [id number] [place] [address]- 2835 Jul, [facility] [place] [facility] [address] [id number] [place] [address]- 4755 Jun, [facility] [place] [facility] [address] [id number] [place] [address]- 7070 Jun, [facility] [place] [facility] [address] [id number] [place] [address]- 0360 Jun, [facility] [place] [facility] [address] [id number] [place] [address]- 1559 Jun, [facility] [place] [facility] [address] [id number] [place] [address]- 9139 Jun, [facility] [place] [facility] [address] [id number] [place] [address]- 2337 Jun, [facility] [place] [facility] [address] [id number] [place] [address]- 2133 May, [facility] [place] [facility] [address] [id number] [place] [address]- 8309 May, [facility] [place] [facility] [address] [id number] [place] [address]- 7030 May, [facility] [place] [facility] [address] [id number] [place] [address]- 2746 May, [facility] [place] [facility] [address] [id number] [place] [address]- 8726 Apr, [facility] [place] [facility] [address] [id number] [place] [address]- 5908 Apr, [facility] [place] [facility] [address] [id number] [place] [address]- 8658 March, [facility] [place] [facility] [address] [id number] [place] [address]- 4657 March, [facility] [place] [facility] [address] [id number] [place] [address]- 5836 March, [facility] [place] [facility] [address] [id number] [place] [address]- 5349 March, [facility] [place] [facility] [address] [id number] [place] [address]- 0991 March, [facility] [place] [facility] [address] [id number] [place] [address]- 4150 March, [facility] [place] [facility] [address] [id number] [place] [address]- 9673 Feb, [facility] [place] [facility] [address] [id number] [place] [address]- 4752 Feb, [facility] [place] [facility] [address] [id number] [place] [address]- 7335 Dec, [facility] [place] [facility] [address] [id number] [place] [address]- 0394 Dec, [facility] [place] [facility] [address] [id number] [place] [address]- 3461 Nov, [facility] [place] [facility] [address] [id number] [place] [address]- 8022 Nov, [facility] [place] [facility] [address] [id number] [place] [address]- 3291 Sep, [facility] [place] [facility] [address] [id number] [place] [address]- 2409 Sep, [facility] [place] [facility] [address] [id number] [place] [address]- 6192 Sep, [facility] [place] [facility] [address] [id number] [place] [address]- 7734 Sep, [facility] [place] [facility] [address] [id number] [place] [address]- 8489 Sep, [facility] [place] [facility] [address] [id number] [place] [address]- 4923 Sep, [facility] [place] [facility] [address] [id number] [place] [address]- 2367 Sep, [facility] [place] [facility] [address] [id number] [place] [address]- 9958 Aug, [facility] [place] [facility] [address] [id number] [place] [address]- 8787 Aug, [facility] [place] [facility] [address] [id number] [place] [address]- 2666 Aug, [facility] [place] [facility] [address] [id number] [place] [address]- 4676 Aug, [facility] [place] [facility] [address] [id number] [place] [address]- 4273 Aug, [facility] [place] [facility] [address] [id number] [place] [address]- 4008 Aug, [facility] [place] [facility] [address] [id number] [place] [address]- 5451 Jul, [facility] [place] [facility] [address] [id number] [place] [address]- 4182 19 Jul, 2013 [facility] [place] [facility] [address] [id number] [place] [address]- 6678 16 Jul, 2013 [facility] [place] [facility] [address] [id number] [place] [address]- 7970 13 Jul, 2013 [facility] [place] [facility] [address] [id number] [place] [address]- 8225 Jun, [facility] [place] [facility] [address] [id number] [place] [address]- 2204 Jun, [facility] [place] [facility] [address] [id number] [place] [address]- 3092 Jun, [facility] [place] [facility] [address] [id number] [place] [address]- 5546 Jun, [facility] [place] [facility] [address] [id number] [place] [address]- 5464 Jun, [facility] [place] [facility] [address] [id number] [place] [address]- 7209 Jun, [facility] [place] [facility] [address] [id number] [place] [address]- 7092 Jun, [facility] [place] [facility] [address] [id number] [place] [address]- 8998 May, [facility] [place] [facility] [address] [id number] [place] [address]- 4767 May, [facility] [place] [facility] [address] [id number] [place] [address]- 2570 May, [facility] [place] [facility] [address] [id number] [place] [address]- 6147 May, [facility] [place] [facility] [address] [id number] [place] [address]- 6250 May, [facility] [place] [facility] [address] [id number] [place] [address]- 1292 May, [facility] [place] [facility] [address] [id number] [place] [address]- 2243 May, [facility] [place] [facility] [address] [id number] [place] [address]- 8104 Apr, [facility] [place] [facility] [address] [id number] [place] [address]- 0595 Apr, [facility] [place] [facility] [address] [id number] [place] [address]- 3549 Apr, [facility] [place] [facility] [address] [id number] [place] [address]- 7601 Apr, [facility] [place] [facility] [address] [id number] [place] [address]- 2427 Apr, [facility] [place] [facility] [address] [id number] [place] [address]- 9953 18 Apr, 2013 [facility] [place] [facility] [address] [id number] [place] [address]- 3035 18 Apr, 2013 [facility] [place] [facility] [address] [id number] [place] [address]- 5253 18 Apr, 2013 [facility] [place] [facility] [address] [id number] [place] [address]- 5521 17 Apr, 2013 [facility] [place] [facility] [address] [id number] [place] [address]- 1247 14 Apr, 2013 [facility] [place] [facility] [address] [id number] [place] [address]- 1988 14 Apr, 2013 [facility] [place] [facility] [address] [id number] [place] [address]- 9794 11 Apr, 2013 [facility] [place] [facility] [address] [id number] [place] [address]- 9771 10 Apr, 2013 [facility] [place] [facility] [address] [id number] [place] [address]- 2525 09 Apr, 2013 [facility] [place] [facility] [address] [id number] [place] [address]- 7317 07 Apr, 2013 [facility] [place] [facility] [address] [id number] [place] [address]- 2065 06 Apr, 2013 [facility] [place] [facility] [address] [id number] [place] [address]- 5989 06 Apr, 2013 [facility] [place] [facility] [address] [id number] [place] [address]- 5504 05 Apr, 2013 [facility] [place] [facility] [address] [id number] [place] [address]- 0094 03 Apr, 2013 [facility] [place] [facility] [address] [id number] [place] [address]- 8982 March, [facility] [place] [facility] [address] [id number] [place] [address]- 0095 March, [facility] [place] [facility] [address] [id number] [place] [address]- 4026 16 Mar, 2013 [facility] [address] [id number] [place] [address]- 3120 March, [facility] [address] [id number] [place] [address]- 9757 March, [facility] [address] [id number] [place] [address]- 0261 March, [facility] [address] [id number] [place] [address]- 8791 March, [facility] [address] [id number] [place] [address]- 4546 Feb, [facility] [address] [id number] [place] [address]- 4106 Feb, [facility] [address] [id number] [place] [address]- 3973 27 Jan, 2013 [facility] [address] [id number] [place] [address]- 8428 18 Jan, 2013 [facility] [address] [id number] [place] [address]- 4730 15 Jan, 2013 [facility] [address] [id number] [place] [address]- 7580 14 Jan, 2013 [facility] [address] [id number] [place] [address]- 1485 13 Jan, 2013 [facility] [address] [id number] [place] [address]- 4234 12 Jan, 2013 [facility] [place] [facility] [address] [id number] [place] [address]- 9417 11 Jan, 2013 [facility] [address] [id number] [place] [address]- 7224 09 Jan, 2013 [facility] [address] [id number] [place] [address]- 9786 08 Jan, 2013 [facility] [place] [facility] [address] [id number] [place] [address]- 9475 07 Jan, 2013 [facility] [place] [facility] [address] [id number] [place] [address]- 6540 06 Jan, 2013 [facility] [place] [facility] [address] [id number] [place] [address]- 4735 17 Nov, 2012 [facility] [place] [facility] [address] [id number] [place] [address]- 7837 Oct, [facility] [place] [facility] [address] [id number] [place] [address]- 8753 Oct, [facility] [place] [facility] [address] [id number] [place] [address]- 0699 Oct, [facility] [place] [facility] [address] [id number] [place] [address]- 0082 Oct, [facility] [place] [facility] [address] [id number] [place] [address]- 8327 30 Sep, 2012 [facility] [place] [facility] [address] [id number] [place] [address]- 4130 30 Sep, 2012 [facility] [place] [facility] [address] [id number] [place] [address]- 4374 Sep, [facility] [place] [facility] [address] [id number] [place] [address]- 5176 16 Sep, 2012 [facility] [place] [facility] [address] [id number] [place] [address]- 1183 16 Sep, 2012 [facility] [place] [facility] [address] [id number] [place] [address]- 3136 Sep, [facility] [place] [facility] [address] [id number] [place] [address]- 7407 16 Sep, 2012 [facility] [place] [facility] [address] [id number] [place] [address]- 1657 Sep, [facility] [place] [facility] [address] [id number] [place] [address]- 0545 Sep, [facility] [place] [facility] [address] [id number] [place] [address]- 9327 Sep, [facility] [place] [facility] [address] [id number] [place] [address]- 4116 Sep, [facility] [place] [facility] [address] [id number] [place] [address]- 5416 Aug, [facility] [place] [facility] [address] [id number] [place] [address]- 8642 Aug, [facility] [place] [facility] [address] [id number] [place] [address], [place] [address]- 0683 Aug, [facility] [place] [facility] [address] [id number] [place] [address]- 8264 28 Jul, 2012 [facility] [place] [facility] [address] [id number] [place] [address]- 5944 25 Jul, 2012 [facility] [place] [facility] [address] [id number] [place] [address]- 2741 19 Jul, 2012 [facility] [place] [facility] [address] [id number] [place] [address]- 7020 17 Jul, 2012 [facility] [place] [facility] [address] [facility] [id number] [place] [address]- 9405 20 Jun, 2012 [facility] [place] [facility] [address] [id number] [place] [address]- 6060 16 Jun, 2012 [facility] [place] [facility] [address] [id number] [place] [address]- 4915 15 Jun, 2012 [facility] [place] [facility] [address] [id number] [place] [address]- 9706 15 Jun, 2012 [facility] [place] [facility] [address] [id number] [place] [address]- 4844 13 Jun, 2012 [facility] [place] [facility] [address] [id number] [place] [address]- 3402 March, [facility] [address] [id number] [place] [address]- 5126 04 Feb, 2012 [facility] [place] [facility] [address] [id number] [place] [address]- 9066 28 Jan, 2012 [facility] [place] [facility] [address] [id number] [place] [address]- 4716 27 Jan, 2012 [facility] [place] [facility] [address] [id number] [place] [address]- 6526 22 Jan, 2012 [facility] [place] [facility] [address] [id number] [place] [address]- 2532 14 Jan, 2012 [facility] [place] [facility] [address] [id number] [place] [address]- 1246 14 Jan, 2012 [facility] [place] [facility] [address] [facility] [id number] [place] [address]- 5826 14 Jan, 2012 [facility] [place] [facility] [address] [id number] [place] [address]- 3566 28 Dec, 2011 [facility] [place] [facility] [address] [id number] [place] [address]- 6916 27 Dec, 2011 [facility] [place] [facility] [address] [facility] [id number] [place] [address]- 9546 23 Dec, 2011 [facility] [place] [facility] [address] [id number] [place] [address]- 3996 21 Dec, 2011 [facility] [place] [facility] [address] [id number] [place] [address]- 3936 20 Dec, 2011 [facility] [place] [facility] [address] [id number] [place] [address]- 7706 19 Dec, 2011 [facility] [place] [facility] [address] [id number] [place] [address]- 4086 17 Dec, 2011 [facility] [place] [facility] [address] [facility] [id number] [place] [address]- 0026 16 Dec, 2011 [facility] [place] [facility] [address] [id number] [address]- [address]151 Nov, [facility] [address] [id number], [place] [address] 1398 Oct, [facility] [id number], [place] [address]- 8934 Sep, [facility] [address] [id number], [place] [address]- 0298 Sep, [facility] [id number], [place] [address]- 5108 Sep, [facility] [id number], [place] [address]- 4035 Sep, [facility] [id number], [place] [address]- 6627 Sep, [facility] [id number], [place] [address]- 5330 Sep, [facility] [address] [id number], [place] [address]- 8461 Jan, [facility] [address] [id number] [address]- 9890 Apr, IMMUNIZATIONS No Known Immunizations SOCIAL HISTORY [...] History Left ovary removed 12/2016 Hospitalization History [facility] Admission x4 2009 most recent admission Hospitalization History [facility]; overdose 2010 Hospitalization History child 11/29/2016
--- OUTSIDE RECORDS SUMMARY | 2019-03-04 16:45 | XMS REPORT ---
Author Author TOMASZ MARGARITA [facility] Address [address] [place] [address] Care Team Providers Care Information Security Officer Name Role Phone TOMASZ, MARGARITA Unavailable PROBLEMS Type Condition ICD9-CM Code [id number] Code Onset Dates Condition Status SNOMED Code Problem Generalized anxiety disorder F41.1 Active 68576720 Problem Acute non intractable tension-type headache G44.209 Active 497468939 Problem Acute right-sided low back pain with right-sided sciatica M54.41 Active 220471541 Problem Post traumatic stress disorder F43.10 Active 77545840 Problem Bipolar disorder, current episode mixed, moderate F31.62 Active 152839968 Problem Endometriosis N80.9 Active 640247970 Problem Borderline personality disorder F60.3 Active 47291298 ALLERGIES Substance Reaction Event Type Date Status Thioridazine HCl tachycardia Drug Allergy Oct, Active Pristiq Unknown Drug Allergy Oct, Active Penicillin V Potassium rash Drug Allergy Oct, Active Diclofenac Sodium nausea Drug Allergy Oct, Active Depakote fatigue Drug Allergy Oct, Active ENCOUNTERS Encounter Location Date Diagnosis [place] [id number] [place] [address] 37009- 5837 Jan, [facility] [place] [address] [id number] [place] [address] 25840- 8366 Oct, Bipolar disorder, current episode mixed, moderate F31.62 ; Post traumatic stress disorder F43.10 and Borderline personality disorder F60.3 [facility] [place] [id number] [place] [address] 04174- 0999 14 Sep, 2018 Bipolar disorder, current episode mixed, moderate F31.62 [place] [address] [place] [id number] [place] [address] 49217- 6836 08 Aug, 2018 Bipolar disorder, current episode mixed, moderate F31.62 [facility] [place] [id number] [place] [address] 04666- 6919 25 Jul, 2018 Thrombophlebitis I80.9 and Pelvic pain R10.2 [facility] [place] [id number] [place] [address] 80979- 2889 05 Jul, 2018 Bipolar disorder, current episode mixed, moderate F31.62 ; Post traumatic stress disorder F43.10 and Borderline personality disorder F60.3 [facility] [place] [id number] [place] [address] 83192- 7952 Jun, Bipolar disorder, current episode mixed, moderate F31.62 [place] [address] 24401- 7995 May, Palpitations R00.2 [facility] [place] [id number] [place] [address] 43896- 3160 May, Palpitations R00.2 [facility] [place] [address] [place] [id number] [place] [address] 22794- 5366 May, Palpitations R00.2 and Frequent bowel movements R19.4 [facility] [place] [id number] [place] [address] 97275- 2875 05 May, 2018 Bipolar disorder, current episode mixed, moderate F31.62 ; Post traumatic stress disorder F43.10 and Borderline personality disorder F60.3 [facility] [address] [id number] [place] [address] [id number] Apr, Dental examination Z01.20 [facility] [id number] [place] [address] 20141 -0079 Apr, [facility] [place] [id number] [place] [address] 46065- 7360 Apr, Dental examination Z01.20 [facility] [id number] [place] [address] 63347 -3560 Apr, Tooth pain K08.89 [facility] [place] [id number] [place] [address] 02453- 4850 Apr, Bipolar disorder, current episode mixed, moderate F31.62 ; Post traumatic stress disorder F43.10 and Borderline personality disorder F60.3 [facility] [id number] [place] [address] 08234 -9102 March, Abdominal pain R10.9 ; UTI symptoms R39.9 and Other microscopic hematuria R31.29 [place] [address] 44699- 3381 March, [place] [address] 21495- 2416 March, Bipolar disorder, current episode mixed, moderate F31.62 ; Post traumatic stress disorder F43.10 and Borderline personality disorder F60.3 [place] [address] 82240- 1026 Feb, Encounter for immunization Z23 [place] [address] 79920- 5367 Feb, Bipolar disorder, current episode mixed, moderate F31.62 ; Post traumatic stress disorder F43.10 and Borderline personality disorder F60.3 [place] [address] [place] [id number] [place] [address] 09178- 4230 Feb, Bipolar disorder, current episode mixed, moderate F31.62 ; Post traumatic stress disorder F43.10 ; Borderline personality disorder F60.3 and 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 [facility] [place] [id number] [place] [address] 97253- 3727 Jan, Encounter for immunization Z23 [place] [address] [place] [id number] [place] [address] 10968- 2635 Jan, [place] [address] [place] [id number] [place] [address] 64424- 7055 Jan, Bipolar disorder, current episode mixed, moderate F31.62 [facility] [address] 77970 -7904 Jan, Lumbar back pain M54.5 [place] [address] [place] [id number] [place] [address] 25907- 7280 28 Dec, 2017 Low back pain M54.5 [place] [address] [place] [id number] [place] [address] 45403- 9411 Dec, Bipolar disorder, current episode mixed, moderate F31.62 [place] [address] 64003- 5506 Dec, Generalized anxiety disorder F41.1 and Bipolar disorder, current episode mixed, moderate F31.62 [facility] [place] [address] 84936 -2652 Nov, Acute non intractable tension-type headache G44.209 [place] [address] 21777- 8899 Nov, Bipolar disorder, current episode mixed, moderate F31.62 ; Post traumatic stress disorder F43.10 and Borderline personality disorder F60.3 [place] [address] [place] [id number] [place] [address] 27991- 1381 Nov, Bipolar disorder, current episode mixed, moderate F31.62 [facility] [place] [address] [id number] [place] [address] 74083 -4429 Nov, Abdominal pain R10.9 ; History of PCOS Z87.42 ; History of endometriosis Z87.42 and Pelvic pain R10.2 [place] [address] [place] [id number] [place] [address] 77632- 9495 Nov, [facility] [address] [place] [id number] [place] [address] 43519 -9355 Oct, History of PCOS Z87.42 ; History of endometriosis Z87.42 and Pain R52 [place] [address] [place] [id number] [place] [address] 22028- 9246 Oct, Bipolar disorder, current episode mixed, moderate F31.62 ; Post traumatic stress disorder F43.10 and Borderline personality disorder F60.3 [facility] [place] [address], [place] [address]- 3109 Oct, Bipolar disorder, current episode mixed, moderate F31.62 [place] [address] [place] [address] 44703- 2870 24 Sep, 2017 Bipolar disorder, current episode mixed, moderate F31.62 ; Post traumatic stress disorder F43.10 ; Borderline personality disorder F60.3 and 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 [place] [address] [place] [address] 78047- 3574 17 Sep, 2017 Bipolar disorder, current episode mixed, moderate F31.62 [facility] [id number] [place] [address] 87252 -9771 Sep, Endometriosis N80.9 and Acute right-sided low back pain with right-sided sciatica M54.41 [place] [address] [place] [id number] [place] [address] 61994- 4440 Aug, [place] [address] [place] [id number] [place] [address] 54554- 3169 Aug, Bipolar disorder, current episode mixed, moderate F31.62 ; Post traumatic stress disorder F43.10 and Borderline personality disorder F60.3 [place] [address] [address]- 3874 11 Aug, 2017 Bipolar disorder, current episode mixed, moderate F31.62 ; Post traumatic stress disorder F43.10 and Borderline personality disorder F60.3 [place] [address], [place] [address]- 0698 13 Jul, 2017 Bipolar disorder, current episode mixed, moderate F31.62 ; Post traumatic stress disorder F43.10 and Borderline personality disorder F60.3 [facility] [address] [place] [address] 77075 -9912 11 Jul, 2017 Pharyngitis, unspecified etiology J02.9 and Streptococcal pharyngitis J02.0 [place] [address] [place] [address] 22420- 5025 Jun, Bipolar disorder, current episode mixed, moderate F31.62 ; Post traumatic stress disorder F43.10 and Borderline personality disorder F60.3 [place] [address] [place] [id number] [place] [address] 00900- 1690 May, [place] [address] [place] [id number] [place] [address] 97159- 8525 May, [place] [address] [place] [id number] [place] [address] 85620- 9070 May, Bipolar disorder, current episode mixed, moderate F31.62 and Generalized anxiety disorder F41.1 [place] [address] [place] [id number] [place] [address] 54741- 3026 March, Bipolar disorder, current episode mixed, moderate F31.62 and Generalized anxiety disorder F41.1 [place] [address] [place] [id number] [place] [address] 83042- 6545 March, Pelvic pain R10.2 [place] [address] [place] [id number] [place] [address] 16498- 4738 March, [place] [address] [place] [id number] [place] [address] 43873- 4959 Feb, Bipolar disorder, current episode mixed, moderate F31.62 and Generalized anxiety disorder F41.1 [place] [id number] [place] [address] 27821- 9089 Jan, [place] [address] [place] [address] 54865- 3745 Jan, Bipolar disorder, current episode mixed, moderate F31.62 [place] [address] [place] [address] 04041- 2340 Jan, Bipolar disorder, current episode mixed, moderate F31.62 [place] [address] [place] [id number] [place] [address] 68808- 2591 Jan, Bilateral low back pain without sciatica M54.5 [facility] [address] [id number] Jan, Dental caries K02.9 and Dental examination Z01.20 [facility] [address] [address] 09 Jan, 2017 Encounter for dental examination and cleaning without abnormal findings Z01.20 [facility] [place] [address] [place] [id number] [place] [address] 37629- 0856 06 Jan, 2017 Bipolar disorder, current episode mixed, moderate F31.62 and Generalized anxiety disorder F41.1 [facility] [place] [address] [place] [id number] [place] [address] 69471- 8762 Dec, [facility] [place] [address] [place] [id number] [place] [address] 46320- 2246 06 Dec, 2016 Bipolar disorder, current episode mixed, moderate F31.62 and Generalized anxiety disorder F41.1 [facility] [place] [address] [place] [address] 76179- 6945 03 Dec, 2016 Other fatigue R53.83 and Orthostatic hypotension I95.1 [facility] [address] [place] [address] [id number] Nov, Dental examination Z01.20 [facility] [address], [place] [address] -0496 Nov, Bronchitis J40 [facility] [place] [address] [place] [address] 79759- 6838 Oct, Generalized anxiety disorder F41.1 [facility] [place] [address] [place] [id number] [place] [address] 73705- 2370 Sep, Bipolar disorder, current episode mixed, moderate F31.62 and Generalized anxiety disorder F41.1 [facility] [place] [address] [place] [address] 63955- 2956 02 Sep, 2016 Bipolar disorder, current episode mixed, moderate F31.62 and Generalized anxiety disorder F41.1 [facility] [address], [place] [address] -9338 08 Jul, 2016 Upper respiratory tract infection, unspecified type J06.9 [facility] [place] [address], [place] [address]- 9036 Jun, Bipolar disorder, current episode mixed, moderate F31.62 and Generalized anxiety disorder F41.1 [facility] [place] [address] [place] [id number] [place] [address] 05616- 3278 Apr, [facility] [place] [address] [place] [id number] [place] [address] 72688- 8918 Apr, Encounter for test, result positive Z32.01 [facility] [place] [address] [place] [id number] [place] [address] 71982- 4601 March, [facility] [place] [address] [place] [id number] [place] [address] 72826- 8848 March, Bipolar disorder, current episode mixed, moderate F31.62 and Generalized anxiety disorder F41.1 [facility] [place] [address], [place] [address]- 7025 March, Bipolar disorder, current episode mixed, moderate F31.62 and Generalized anxiety disorder F41.1 [facility] [place] [address], [place] [address]- 4002 March, [facility] [place] [address], [place] [address]- 7662 March, [facility] [place] [address], [place] [address]- 5510 Feb, [facility] [place] [address] [place] [address] [id number] [place] [address] 28234- 2492 Feb, [facility] [place] [address], [place] [address]- 0423 Feb, Bipolar disorder, current episode mixed, moderate F31.62 and Generalized anxiety disorder F41.1 [facility] [place] [address] [place] [address] [id number] [place] [address] 37770- 6821 22 Jan, 2016 Abdominal pain R10.9 [place] [address] [place] [id number] [place] [address] 01340- 6113 14 Jan, 2016 [place] [address] [place] [id number] [place] [address] 78519- 0848 29 Dec, 2015 Dental examination Z01.20 [place] [address] [place] [id number] [place] [address] 61431- 7449 22 Dec, 2015 Dental examination Z01.20 and Dental caries K02.9 [place] [address] [place] [id number] [place] [address] 71723- 6107 15 Dec, 2015 Bipolar disorder, current episode mixed, moderate F31.62 and Generalized anxiety disorder F41.1 [place] [address] [place] [id number] [place] [address] 89783- 4794 15 Dec, 2015 [place] [address] [place] [id number] [place] [address] 64987- 6638 Nov, Bipolar disorder, current episode mixed, moderate F31.62 ; Generalized anxiety disorder F41.1 and Seizure-like activity R56.9 [place] [address] [place] [address] 06126- 2933 Oct, [place] [address] [place] [address] 41498- 0107 Oct, Bipolar disorder, current episode mixed, moderate F31.62 [place] [address] [place] [address] 95520- 5235 14 Oct, 2015 Well woman exam Z01.419 [...] Tobacco use Z72.0 and Hot flashes N95.1 [place] [address] 30323- 7550 09 Oct, 2015 Seizure-like activity R56.9 and Irregular periods N92.6 [place] [address] 11177- 7548 07 Oct, 2015 Bipolar disorder, current episode mixed, moderate F31.62 ; Generalized anxiety disorder F41.1 and Underweight R63.6 [place] [address] 91215- 5339 Oct, [place] [address] 27266- 8112 Oct, Generalized anxiety disorder F41.1 and Unspecified mood [ affective] disorder F39 [facility] [address] 98038 -6620 Oct, Back pain M54.9 and Anxiety F41.9 [place] [address] 07176- 9462 Oct, [facility] [address] 68699 -3085 Sep, Arm pain, left M79.602 [place] [address] 07874- 5194 Sep, [facility] [address] [id number] Sep, Dental examination Z01.20 and Dental caries K02.9 [place] [address] 61782- 4365 Sep, Generalized anxiety disorder F41.1 and Unspecified episodic mood disorder F39 [facility] [place] [address] 56565- 1043 Sep, Bilateral low back pain without sciatica M54.5 and Seizure- like activity R56.9 [facility] [place] [address] [place] [id number] [place] [address] 49071- 9294 Aug, [facility] [place] [address] [place] [id number] [place] [address] 68203- 9844 Aug, [facility] [place] [address] [place] [id number] [place] [address] 95577- 1716 Aug, [facility] [place] [address] [place] [id number] [place] [address] 29318- 7233 Aug, Visual changes H53.9 and Bilateral low back pain without sciatica M54.5 [facility] [place] [address] [place] [id number] [place] [address] 51144- 0633 Jul, [facility] [place] [address] [place] [id number] [place] [address] 92369- 4140 Jun, Bipolar I disorder, most recent episode (or current) mixed, moderate 296.62 ; Generalized anxiety disorder 300.02 and High risk medication use V58.69 [facility] [place] [address] [place] [id number] [place] [address] 97884- 4735 Jun, [facility] [place] [address] [place] [id number] [place] [address] 86155- 9891 May, [facility] [place] [address] [place] [id number] [place] [address] 68672- 1619 May, Bipolar I disorder, most recent episode (or current) mixed, moderate 296.62 and Generalized anxiety disorder 300.02 [facility] [address] [place] [address] [id number] May, Dental examination V72.2 [facility] [place] [address] [place] [id number] [place] [address] 72472- 2901 March, Bipolar I disorder, most recent episode (or current) mixed, moderate 296.62 and Generalized anxiety disorder 300.02 [facility] [place] [address] [place] [id number] [place] [address] 60570- 1164 March, [facility] [place] [address] [place] [id number] [place] [address]- 3075 March, [facility] [place] [address] [place] [id number] [place] [address] 27635- 0996 March, Underweight 783.22 ; Hand pain, right 729.5 and Reflux gastritis 535.40 [facility] [place] [address] [place] [id number] [place] [address]- 8501 14 Feb, 2015 [facility] [place] [address] [place] [address] [id number] [place] [address] 69111- 5848 Feb, [facility] [place] [address] [place] [id number] [place] [address], [place] [address]- 5678 18 Jan, 2015 [facility] [place] [address] [place] [id number] [place] [address] 11555- 0602 18 Jan, 2015 [facility] [place] [address] [place] [id number] [place] [address] 46367- 4371 16 Jan, 2015 [facility] [place] [address] [place] [id number] [address]- 1622 16 Jan, 2015 [facility] [place] [address] [place] [id number] [place] [address] 35273- 6581 Jan, [facility] [place] [address], [place] [address]- 6641 Jan, [facility] [place] [address], [place] [address]- 7402 05 Jan, 2015 [facility] [place] [address], [place] [address]- 6805 05 Jan, 2015 [facility] [place] [address], [place] [address]- 4518 04 Jan, 2015 [facility] [place] [address], [place] [address]- 5251 04 Jan, 2015 [facility] [place] [address], [place] [address]- 4056 Jan, [facility] [place] [facility] [address] [id number] [place] [address]- 8275 Jan, 2014 [facility] [place] [facility] [address] [id number] [place] [address]- 1342 20 Dec, 2014 [facility] [place] [facility] [address] [facility] [id number] [place] [address]- 2547 20 Dec, 2014 [facility] [place] [facility] [address] [facility] [id number] [place] [address]- 0161 19 Dec, 2014 [facility] [place] [facility] [address] [id number] [place] [address]- 0882 19 Dec, 2014 [facility] [place] [facility] [address] [facility] [id number] [place] [address]- 8041 18 Dec, 2014 [facility] [place] [facility] [address] [facility] [id number] [place] [address]- 1016 17 Dec, 2014 [facility] [place] [facility] [address] [facility] [id number] [place] [address]- 8639 17 Dec, 2014 [facility] [place] [facility] [address] [facility] [id number] [place] [address]- 9014 16 Dec, 2014 [facility] [place] [facility] [address] [facility] [id number] [place] [address]- 9088 16 Dec, 2014 [facility] [place] [facility] [address] [facility] [id number] [place] [address]- 8102 05 Dec, 2014 [facility] [place] [facility] [address] [facility] [id number] [place] [address] 05 Dec, 2014 [facility] [place] [facility] [address] [facility] [id number] [place] [address] 05 Dec, 2014 [facility] [place] [facility] [address] [facility] [id number] [place] [address] 05 Dec, 2014 [facility] [place] [facility] [address] [facility] [id number] [place] [address] 04 Dec, 2014 [facility] [place] [facility] [address] [facility] [id number] [place] [address] Dec, 2014 [facility] [place] [facility] [address] [id number] [place] [address] Dec, 2014 [facility] [place] [facility] [address] [id number] [place] [address] Dec, 2014 [facility] [place] [facility] [address] [id number] [place] [address] Dec, 2014 [facility] [place] [facility] [address] [id number] [place] [address] Dec, [facility] [place] [facility] [address] [id number] [place] [address] Nov, [facility] [place] [facility] [address] [id number] [place] [address] Nov, [facility] [place] [facility] [address] [id number] [place] [address] Nov, [facility] [place] [facility] [address] [id number] [place] [address] Nov, [facility] [place] [facility] [address] [id number] [place] [address] Nov, [facility] [place] [facility] [address] [id number] [place] [address] Nov, [facility] [place] [facility] [id number] [place] [id number] Nov, [facility] [place] [facility] [address] [id number] [place] [address] Nov, [facility] [place] [facility] [address] [id number] [place] [address] Nov, [facility] [place] [facility] [address] [id number] [place] [id number] Nov, [facility] [place] [facility] [address] [id number] [place] [address] Nov, [facility] [place] [facility] [address] [id number] [place] [address] Nov, [facility] [place] [facility] [address] [id number] [place] [address] Oct, [facility] [place] [facility] [address] [id number] [place] [address] 6234 Oct, [facility] [place] [facility] [address] [id number] [place] [address] 0697 Oct, [facility] [place] [facility] [address] [id number] [place] [address] Oct, [facility] [place] [facility] [address] [id number] [place] [address] 0927 Oct, [facility] [place] [facility] [address] [id number] [place] [address] 5676 Oct, [facility] [place] [facility] [address] [id number] [place] [address] 6677 Oct, [facility] [place] [facility] [address] [id number] [place] [address] 0833 Oct, [facility] [place] [facility] [address] [id number] [place] [address] 3046 Oct, [facility] [place] [facility] [address] [id number] [place] [address] 2046 Oct, [facility] [place] [facility] [address] [id number] [place] [address] 3972 Oct, [facility] [place] [facility] [address] [id number] [place] [address] 1730 Oct, [facility] [place] [facility] [address] [id number] [place] [address] 9941 Sep, [facility] [place] [facility] [address] [id number] [place] [address]- 1285 Sep, [facility] [place] [facility] [address] [id number], [place] [address] 7170 Sep, [facility] [place] [facility] [address] [id number] [place] [address] 3664 Sep, [facility] [place] [facility] [address] [id number] [place] [address] Sep, [facility] [place] [facility] [address] [id number] [place] [address]- 5643 Sep, [facility] [place] [facility] [address] [id number] [place] [address]- 2416 Sep, [facility] [place] [facility] [address] [id number] [place] [address]- 2325 Sep, [facility] [place] [facility] [address] [id number] [place] [address]- 7985 Aug, [facility] [place] [facility] [address] [id number] [place] [address]- 5896 Aug, [facility] [place] [facility] [address] [id number] [place] [address]- 9550 Aug, [facility] [place] [facility] [address] [id number] [place] [address]- 5431 Aug, [facility] [place] [facility] [address] [id number] [place] [address]- 1897 Aug, [facility] [place] [facility] [address] [id number], [place] [address]- 6499 Aug, [facility] [place] [facility] [address] [id number], [place] [address]- [address]10 Aug, [facility] [place] [facility] [address] [id number] [place] [address] 1300 Aug, [facility] [place] [facility] [address] [id number] [place] [address]- 3273 Aug, [facility] [place] [facility] [address] [id number] [place] [address]- 3648 Aug, [facility] [place] [facility] [address] [id number] [place] [address] 5104 Aug, [facility] [place] [facility] [address] [id number] [place] [address]- 9898 Aug, [facility] [place] [facility] [address] [id number] [place] [address]- 6356 Aug, [facility] [place] [facility] [address] [id number] [place] [address]- 5616 Jul, [facility] [place] [facility] [address] [id number] [place] [address]- 2025 Jul, [facility] [place] [facility] [address] [id number] [place] [address]- 9452 Jul, [facility] [place] [facility] [address] [id number] [place] [address]- 3183 Jul, [facility] [place] [facility] [address] [id number] [place] [address]- 7873 Jun, [facility] [place] [facility] [address] [id number] [place] [address]- 1393 Jun, [facility] [place] [facility] [address] [id number] [place] [address]- 6226 Jun, [facility] [place] [facility] [address] [id number] [place] [address]- 7678 Jun, [facility] [place] [facility] [address] [id number] [place] [address]- 8598 Jun, [facility] [place] [facility] [address] [id number] [place] [address]- 8745 Jun, [facility] [place] [facility] [address] [id number] [place] [address] May, [facility] [place] [facility] [address] [id number] [place] [address]- 5476 May, [facility] [place] [facility] [address] [id number] [place] [address]- 8548 May, [facility] [place] [facility] [address] [id number] [place] [address]- 0805 May, [facility] [place] [facility] [address] [id number] [place] [address]- 3995 Apr, [facility] [place] [facility] [address] [id number] [place] [address]- 5509 Apr, [facility] [place] [facility] [address] [id number] [place] [address]- 4753 March, [facility] [place] [facility] [address] [id number] [place] [address]- 4591 March, [facility] [place] [facility] [address] [id number] [place] [address]- 9844 March, [facility] [place] [facility] [address] [id number] [place] [address]- 7008 March, [facility] [place] [facility] [address] [id number] [place] [address]- 9451 March, [facility] [place] [facility] [address] [id number] [place] [address]- 5513 March, [facility] [place] [facility] [address] [id number] [place] [address]- 5390 Feb, [facility] [place] [facility] [address] [id number] [place] [address]- 6013 Feb, [facility] [place] [facility] [address] [id number] [place] [address]- 6274 Dec, [facility] [place] [facility] [address] [id number] [place] [address]- 8445 Dec, [facility] [place] [facility] [address] [id number] [place] [address]- 5224 Nov, [facility] [place] [facility] [address] [id number] [place] [address]- 9641 Nov, [facility] [place] [facility] [address] [id number] [place] [address]- 6446 14 Sep, 2013 [facility] [place] [facility] [address] [id number] [place] [address]- 8107 14 Sep, 2013 [facility] [place] [facility] [address] [id number] [place] [address] 06 Sep, 2013 [facility] [place] [facility] [address] [id number] [place] [address]- 6953 06 Sep, 2013 [facility] [place] [facility] [address] [id number] [place] [address]- 5680 05 Sep, 2013 [facility] [place] [facility] [address] [id number] [place] [address]- 3789 Sep, [facility] [place] [facility] [address] [id number] [place] [address] 1937 Sep, [facility] [place] [facility] [address] [id number] [place] [address]- 4982 Aug, [facility] [place] [facility] [address] [id number] [place] [address]- 0579 Aug, [facility] [place] [facility] [address] [id number] [place] [address]- 9456 Aug, [facility] [place] [facility] [address] [facility] [id number] [place] [address]- 3278 Aug, [facility] [place] [facility] [address] [id number] [place] [address]- 7071 Aug, [facility] [place] [facility] [address] [id number] [place] [address]- 8513 Aug, [facility] [place] [facility] [address] [id number] [place] [address]- 0223 19 Jul, 2013 [facility] [place] [facility] [address] [id number] [place] [address]161 19 Jul, 2012 [facility] [place] [facility] [address] [id number] [place] [address]- 0173 16 Jul, 2013 [facility] [place] [facility] [address] [id number] [place] [address]- 0978 Jul, [facility] [address] [id number] [place] [address]- 8803 Jun, [facility] [place] [facility] [address] [id number] [place] [address]- 3590 Jun, [facility] [place] [facility] [address] [id number] [place] [address]- 2429 Jun, [facility] [address] [id number] [place] [address]- 6477 Jun, [facility] [place] [facility] [address] [id number] [place] [address]- 0842 Jun, [facility] [address] [id number] [place] [address]- 9997 Jun, [facility] [address] [id number] [place] [address]- 5888 Jun, [facility] [address] [id number] [place] [address]- 0293 May, [facility] [place] [facility] [address] [id number] [place] [address]- 1112 May, [facility] [place] [facility] [address] [id number] [place] [address]- 8180 May, [facility] [place] [facility] [address] [id number] [place] [address]- 1477 May, [facility] [place] [facility] [address] [id number] [place] [address]- 9357 May, [facility] [place] [facility] [address] [id number] [place] [address]- 7231 May, [facility] [place] [facility] [address] [id number] [place] [address]- 1730 May, [facility] [place] [facility] [address] [id number] [place] [address]- 7275 28 Apr, 2013 [facility] [place] [facility] [address] [id number] [place] [address]- 6453 27 Apr, 2013 [facility] [place] [facility] [address] [id number] [place] [address]- 7235 27 Apr, 2013 [facility] [place] [facility] [address] [id number] [place] [address]- 6696 26 Apr, 2013 [facility] [place] [facility] [address] [id number] [place] [address]- 8343 20 Apr, 2013 [facility] [place] [facility] [address] [id number] [place] [address]- 5006 18 Apr, 2013 [facility] [place] [facility] [address] [id number] [place] [address]- 3903 18 Apr, 2013 [facility] [place] [facility] [address] [id number] [place] [address]- 7290 18 Apr, 2013 [facility] [place] [facility] [address] [id number] [place] [address]- 8327 17 Apr, 2013 [facility] [place] [facility] [address] [id number] [place] [address]- 5382 14 Apr, 2013 [facility] [place] [facility] [address] [id number] [place] [address]- 5127 14 Apr, 2013 [facility] [place] [facility] [address] [id number] [place] [address]- 3298 11 Apr, 2013 [facility] [place] [facility] [address] [id number] [place] [address]- 4860 10 Apr, 2013 [facility] [place] [facility] [address] [id number] [place] [address]- 1017 09 Apr, 2013 [facility] [place] [facility] [address] [id number] [place] [address]- 2161 07 Apr, 2013 [facility] [place] [facility] [address] [id number] [place] [address]- 2791 06 Apr, 2013 [facility] [place] [facility] [address] [id number] [place] [address] 2545 Apr, [facility] [address] [id number] [place] [address]- 9333 Apr, [facility] [address] [id number] [place] [address]- 7876 Apr, [facility] [address] [id number] [place] [address]- 1081 March, [facility] [address] [id number] [place] [address]- 5084 March, [facility] [address] [id number] [place] [address]- 2922 March, [facility] [address] [id number] [place] [address]- 2086 March, [facility] [address] [id number] [place] [address]- 1015 March, [facility] [address] [id number] [place] [address]- 1240 March, [facility] [address] [id number] [place] [address]- 1500 March, [facility] [address] [id number] [place] [address]- 1000 Feb, [facility] [address] [id number] [place] [address]- 2283 Feb, [facility] [address] [id number] [place] [address]- 3419 27 Jan, 2013 [facility] [address] [id number] [place] [address]- 7595 18 Jan, 2013 [facility] [address] [id number] [place] [address]- 4356 15 Jan, 2013 [facility] [address] [id number] [place] [address]- 4844 14 Jan, 2013 [facility] [place] [facility] [address] [id number] [place] [address]- 3751 13 Jan, 2013 [facility] [place] [facility] [address] [id number] [place] [address]- 6222 12 Jan, 2013 [facility] [place] [facility] [address] [id number] [place] [address]- 5257 11 Jan, 2013 [facility] [place] [facility] [address] [id number] [place] [address]- 2260 09 Jan, 2013 [facility] [place] [facility] [address] [id number] [place] [address]- 9952 08 Jan, 2013 [facility] [place] [facility] [address] [id number] [place] [address]- 4378 07 Jan, 2013 [facility] [place] [facility] [address] [id number] [place] [address]- 3008 06 Jan, 2013 [facility] [place] [facility] [address] [id number] [place] [address]- 1896 17 Nov, 2012 [facility] [place] [facility] [address] [id number] [place] [address]- 7501 Oct, [facility] [place] [facility] [address] [id number] [place] [address]- 9876 Oct, [facility] [place] [facility] [address] [id number] [place] [address]- 3779 Oct, [facility] [place] [facility] [address] [id number], [place] [address]- 7461 Oct, [facility] [place] [facility] [address] [id number] [place] [address]- 3190 Sep, [facility] [place] [facility] [address] [id number] [place] [address]- 6776 Sep, [facility] [place] [facility] [address] [id number] [place] [address]- 3023 Sep, [facility] [place] [facility] [address] [id number], [place] [address]- 4253 Sep, [facility] [place] [facility] [address] [id number] [place] [address]- 2083 Sep, [facility] [place] [facility] [address] [facility] [id number], [place] [address]- 8182 Sep, [facility] [place] [facility] [address] [facility] [id number] [place] [address]- 9957 Sep, [facility] [place] [facility] [address] [id number] [place] [address]- 4607 Sep, [facility] [place] [facility] [address] [facility] [id number] [place] [address], [place] [address]- 7717 Sep, [facility] [place] [facility] [address] [facility] [id number] [place] [address]- 7248 Sep, [facility] [place] [facility] [id number], [place] [address]- 0556 Sep, [facility] [place] [facility] [address] [facility] [id number] [place] [address]- 7436 Aug, [facility] [place] [facility] [address] [id number] [place] [address]- 2312 Aug, [facility] [place] [facility] [address] [id number], [place] [address]- 2792 Aug, [facility] [place] [facility] [address] [facility] [id number], [place] [address]- 0097 28 Jul, 2012 [facility] [place] [facility] [address] [facility] [id number], [place] [address]- 8724 25 Jul, 2012 [facility] [place] [facility] [address] [id number], [place] [address]- 4876 19 Jul, 2012 [facility] [place] [facility] [address] [facility] [id number], [place] [address]- 2469 17 Jul, 2012 [facility] [place] [facility] [address] [id number], [place] [address]- 9082 Jun, [facility] [place] [facility] [address] [id number] [place] [address]- 8947 16 Jun, 2012 [facility] [place] [facility] [address] [id number] [place] [address]- 6228 15 Jun, 2012 [facility] [place] [facility] [address] [id number] [place] [address]- 9066 15 Jun, 2012 [facility] [place] [facility] [address] [id number] [place] [address]- 7852 13 Jun, 2012 [facility] [place] [facility] [address] [id number] [place] [address]- 7692 March, [facility] [place] [facility] [address] [id number] [place] [address]- 7075 04 Feb, 2012 [facility] [place] [facility] [address] [id number] [place] [address]- 3989 28 Jan, 2012 [facility] [place] [facility] [address] [id number] [place] [address]- 5415 27 Jan, 2012 [facility] [place] [facility] [address] [id number] [place] [address]- 9302 22 Jan, 2012 [facility] [place] [facility] [address] [id number] [place] [address]- 7114 14 Jan, 2012 [facility] [place] [facility] [address] [id number] [place] [address]- 3528 14 Jan, 2012 [facility] [place] [facility] [address] [id number] [place] [address]- 9038 14 Jan, 2012 [facility] [place] [facility] [address] [id number] [place] [address]- 9683 28 Dec, 2011 [facility] [place] [facility] [address] [id number] [place] [address]- 4740 27 Dec, 2011 [facility] [place] [facility] [address] [id number] [place] [address]- 6378 23 Dec, 2011 [facility] [place] [facility] [address] [id number], [place] [address]- 5619 Dec, [facility] [place] [address]00565[address], [place] [address]- 0227 Dec, [facility] [place] [address] [facility] [id number][place]- 6201 19 Dec, 2011 [facility] [place] [address], [place] [address]- 9310 17 Dec, 2011 [facility] [place] [address] [id number], [place] [address]- 8806 16 Dec, 2011 [facility] [place] [id number] [place] [address]- 1353 Nov, [facility] [place] [address] [id number], [place] [address]- 7222 Oct, [facility] [place] [id number] [place] [address] 857[address]- 6493 Sep, [facility] [place] [address]65[address], [place] [address]- 6677 Sep, [facility] [place] [address], [place] [address]- 2747 Sep, [facility] [place] [address], [place] [address]- 3451 Sep, [facility] [place] [address]00565[place], [place] [address]- 0905 Sep, [facility] [place] [address]65[address], [place] [address]- 0719 Sep, [facility] [place] [address]65[place], [place] [address]- 4307 14 Jan, 2011 [facility] [place] [address], [place] [address]- 2024 Apr, IMMUNIZATIONS No Known Immunizations SOCIAL HISTORY Never Assessed REASON FOR VISIT LISANDRO f/daisy Wong, contract PLAN OF CARE Activity Details Follow Up 3 Months Reason: Follow-up VITAL SIGNS Height 66 in 2018-10-24 Weight 129.4 lbs 2018-10-24 Heart Rate 64 bpm 2018-10-24 Respiratory Rate 20 2018-10-24 BMI 20.88 kg/m2 2018-10-24 Blood pressure systolic 98 mmHg 2018-10-24 Blood pressure diastolic 60 mmHg 2018-10-24 MEDICATIONS Medication Instructions Dosage Frequency Start Date End Date Duration Status Klonopin 0.5 MG Orally 4 times a day as needed 1 tablet 30 days Active Abilify 10 mg Orally Once a day 1 tablet 24h 30 days Active Toprol XL 25 MG 1 tablet Active Lamictal 200 mg Orally Once a [...] History Left ovary removed 12/2016 Hospitalization History [facility] Admission x4 2009 most recent admission Hospitalization History [facility]; overdose 2010 Hospitalization History child 11/29/2016
--- OUTSIDE RECORDS SUMMARY | 2019-03-04 16:46 | XMS REPORT ---
Author Author JASON ADAMS [facility] Address [address] [place] [address] Care Team Providers Care Inspector Eyeglass Name Role Phone JASON ADAMS Unavailable PROBLEMS Type Condition ICD9-CM Code [id number] Code Onset Dates Condition Status SNOMED Code Problem Generalized anxiety disorder F41.1 Active 92291141 Problem Acute non intractable tension-type headache G44.209 Active 418483399 Problem Acute right-sided low back pain with right-sided sciatica M54.41 Active 837806728 Problem Post traumatic stress disorder F43.10 Active 07367183 Problem Bipolar disorder, current episode mixed, moderate F31.62 Active 611276508 Problem Endometriosis N80.9 Active 622621945 Problem Borderline personality disorder F60.3 Active 04380620 ALLERGIES Substance Reaction Event Type Date Status Thioridazine HCl tachycardia Drug Allergy Jul, Active Pristiq Unknown Drug Allergy Jul, Active Penicillin V Potassium rash Drug Allergy Jul, Active Diclofenac Sodium nausea Drug Allergy Jul, Active Depakote fatigue Drug Allergy Jul, Active ENCOUNTERS Encounter Location Date Diagnosis [place] [id number] [place] [address] 05961- 4122 Oct, [facility] [id number] [place] [address] 92301- 7166 Jul, Thrombophlebitis I80.9 and Pelvic pain R10.2 [facility] [id number] [place] [address] 91190- 2197 Jul, Bipolar disorder, current episode mixed, moderate F31.62 ; Post traumatic stress disorder F43.10 and Borderline personality disorder F60.3 [facility] [id number] [place] [address] 83539- 4268 Jun, Bipolar disorder, current episode mixed, moderate F31.62 [facility] [id number] [place] [address] 56252- 2894 13 May, 2018 Palpitations R00.2 [facility] [id number] [place] [address] 67008- 4699 13 May, 2018 Palpitations R00.2 [facility] [id number] [place] [address] 17311- 4634 12 May, 2018 Palpitations R00.2 and Frequent bowel movements R19.4 [facility] [id number] [place] [address] 30235- 4105 05 May, 2018 Bipolar disorder, current episode mixed, moderate F31.62 ; Post traumatic stress disorder F43.10 and Borderline personality disorder F60.3 [facility] [id number] [place] [address] [id number] 15 Apr, 2018 Dental examination Z01.20 [facility] [id number] [place] [address] 67542 -6867 15 Apr, 2018 [facility] [id number] [place] [address] 72554- 6430 Apr, Dental examination Z01.20 [facility] [id number] [place] [address] 72781 -9321 15 Apr, 2018 Tooth pain K08.89 [facility] [id number] [place] [address] 51326- 4344 06 Apr, 2018 Bipolar disorder, current episode mixed, moderate F31.62 ; Post traumatic stress disorder F43.10 and Borderline personality disorder F60.3 [facility] [id number] [place] [address] 47019 -4054 March, Abdominal pain R10.9 ; UTI symptoms R39.9 and Other microscopic hematuria R31.29 [facility] [id number] [place] [address] 69226- 4204 March, [facility] [address] 50303- 0401 March, Bipolar disorder, current episode mixed, moderate F31.62 ; Post traumatic stress disorder F43.10 and Borderline personality disorder F60.3 [facility] [id number] [place] [address] Feb, Encounter for immunization Z23 [facility] [id number] [place] [address] 71940- 1835 Feb, Bipolar disorder, current episode mixed, moderate F31.62 ; Post traumatic stress disorder F43.10 and Borderline personality disorder F60.3 [facility] [address] [place] [address] 05666- 4502 Feb, Bipolar disorder, current episode mixed, moderate F31.62 ; Post traumatic stress disorder F43.10 ; Borderline personality disorder F60.3 and 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 [place] [id number] [place] [address] 29197- 0908 Jan, Encounter for immunization Z23 [facility] [id number] [place] [address] 80473- 1396 Jan, [facility] [id number] [place] [address] 48839- 4776 Jan, Bipolar disorder, current episode mixed, moderate F31.62 [facility] [id number] [place] [address] 96175 -4432 Jan, Lumbar back pain M54.5 [facility] [id number] [place] [address] 66013- 3893 Dec, Low back pain M54.5 [facility] [id number] [place] [address] 90116- 4114 Dec, Bipolar disorder, current episode mixed, moderate F31.62 [facility] [address] [place] [address] 64623- 8543 Dec, Generalized anxiety disorder F41.1 and Bipolar disorder, current episode mixed, moderate F31.62 [facility] [id number] [place] [address] 09850 -0716 Nov, Acute non intractable tension-type headache G44.209 [facility] [id number] [place] [id number]- 9976 Nov, Bipolar disorder, current episode mixed, moderate F31.62 ; Post traumatic stress disorder F43.10 and Borderline personality disorder F60.3 [place] [address] 32403- 2750 Nov, Bipolar disorder, current episode mixed, moderate F31.62 [facility] [address] 33670 -9704 Nov, Abdominal pain R10.9 ; History of PCOS Z87.42 ; History of endometriosis Z87.42 and Pelvic pain R10.2 [place] [address] 88571- 3093 Nov, [facility] [address] 05081 -9473 Oct, History of PCOS Z87.42 ; History of endometriosis Z87.42 and Pain R52 [place] [address] [id number] [place] [address] 58284- 9760 Oct, Bipolar disorder, current episode mixed, moderate F31.62 ; Post traumatic stress disorder F43.10 and Borderline personality disorder F60.3 [place] [address] [address] [id number] [place] [address] 39737- 0233 Oct, Bipolar disorder, current episode mixed, moderate F31.62 [place] [address] 20779- 8440 Sep, Bipolar disorder, current episode mixed, moderate F31.62 ; Post traumatic stress disorder F43.10 ; Borderline personality disorder F60.3 and 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 Z79.899 [place] [address] 09771- 9387 17 Sep, 2017 Bipolar disorder, current episode mixed, moderate F31.62 [facility] [id number] [place] [address] 10512 -3948 Sep, Endometriosis N80.9 and Acute right-sided low back pain with right-sided sciatica M54.41 [place] [address] [place] [id number] [place] [address] 83145- 4640 Aug, [facility] [address] [address] [id number] [place] [address] 83578- 2101 Aug, Bipolar disorder, current episode mixed, moderate F31.62 ; Post traumatic stress disorder F43.10 and Borderline personality disorder F60.3 [place] [address] [id number] [place] [address] 89786- 8917 Aug, Bipolar disorder, current episode mixed, moderate F31.62 ; Post traumatic stress disorder F43.10 and Borderline personality disorder F60.3 [place] [address] [id number] [place] [address] 73838- 7470 13 Jul, 2017 Bipolar disorder, current episode mixed, moderate F31.62 ; Post traumatic stress disorder F43.10 and Borderline personality disorder F60.3 [facility] [address] [place] [address] 46040 -8723 11 Jul, 2017 Pharyngitis, unspecified etiology J02.9 and Streptococcal pharyngitis J02.0 [place] [address] [id number] [place] [address] 46350- 1604 16 Jun, 2017 Bipolar disorder, current episode mixed, moderate F31.62 ; Post traumatic stress disorder F43.10 and Borderline personality disorder F60.3 [place] [address] [id number] [place] [address] 00391- 7706 May, [place] [facility] [address] [place] [id number] [place] [address] 26002- 6926 May, [place] [address] [id number] [place] [address] 10922- 7990 May, Bipolar disorder, current episode mixed, moderate F31.62 and Generalized anxiety disorder F41.1 [place] [address] [id number] [place] [id number]- 4590 March, Bipolar disorder, current episode mixed, moderate F31.62 and Generalized anxiety disorder F41.1 [place] [address] [id number] [place] [address] 89932- 4498 March, Pelvic pain R10.2 [place] [address] 34273- 7999 March, [place] [address] [place] 198295- 5495 Feb, Bipolar disorder, current episode mixed, moderate F31.62 and Generalized anxiety disorder F41.1 [place] [address] 16078- 1661 Jan, [facility] [address] 88024- 0443 Jan, Bipolar disorder, current episode mixed, moderate F31.62 [place] [address] 55056- 6020 Jan, Bipolar disorder, current episode mixed, moderate F31.62 [place] [address] [id number] [place] [address] 60157- 0585 Jan, Bilateral low back pain without sciatica M54.5 [facility] [id number] [place] [address] [id number] Jan, Dental caries K02.9 and Dental examination Z01.20 [facility] [address] [id number] Jan, 2017 Encounter for dental examination and cleaning without abnormal findings Z01.20 [facility] [id number] [place] [address] 01480- 1714 06 Jan, 2017 Bipolar disorder, current episode mixed, moderate F31.62 and Generalized anxiety disorder F41.1 [facility] [address] [place] [address] 98062- 6325 Dec, [facility] [id number] [place] [address] 72979- 6202 Dec, Bipolar disorder, current episode mixed, moderate F31.62 and Generalized anxiety disorder F41.1 [facility] [id number] [place] [address] 01978- 0928 Dec, Other fatigue R53.83 and Orthostatic hypotension I95.1 [facility] [id number] [place] [address] [id number] Nov, Dental examination Z01.20 [facility] [id number] [place] [address] 34934 -9026 Nov, Bronchitis J40 [place] [address] 81423- 0032 Oct, Generalized anxiety disorder F41.1 [facility] [id number] [place] [address] 82618- 8918 14 Sep, 2016 Bipolar disorder, current episode mixed, moderate F31.62 and Generalized anxiety disorder F41.1 [place] [address] [id number] [place] [address] 69846- 9242 02 Sep, 2016 Bipolar disorder, current episode mixed, moderate F31.62 and Generalized anxiety disorder F41.1 [facility] [id number] [place] [address] 64895 -7982 08 Jul, 2016 Upper respiratory tract infection, unspecified type J06.9 [facility] [id number] [place] [address] 58922- 0670 Jun, Bipolar disorder, current episode mixed, moderate F31.62 and Generalized anxiety disorder F41.1 [facility] [id number] [place] [address] 01891- 2607 Apr, [facility] [address] 20575- 9179 Apr, Encounter for test, result positive Z32.01 [facility] [id number] [place] [address] 76051- 3280 March, [facility] [id number] [place] [address] 25937- 6152 March, Bipolar disorder, current episode mixed, moderate F31.62 and Generalized anxiety disorder F41.1 [facility] [id number] [place] [address] 00127- 9717 March, Bipolar disorder, current episode mixed, moderate F31.62 and Generalized anxiety disorder F41.1 [facility] [id number] [place] [address] 38595- 5532 March, [facility] [id number] [place] [address] 62562- 8036 March, [facility] [id number] [place] [address] 88812- 4356 Feb, [facility] [id number] [place] [address] 15756- 6343 Feb, [facility] [id number] [place] [address] 23091- 1711 Feb, Bipolar disorder, current episode mixed, moderate F31.62 and Generalized anxiety disorder F41.1 [facility] [address] [place] [address] 48908- 3256 Jan, Abdominal pain R10.9 [facility] [address] [place] [address] 64460- 4450 14 Jan, 2016 [facility] [id number] [place] [address] 83247- 6168 29 Dec, 2015 Dental examination Z01.20 [facility] [address] [place] [address] 44350- 0289 Dec, Dental examination Z01.20 and Dental caries K02.9 [place] [address] [address]- 8165 15 Dec, 2015 Bipolar disorder, current episode mixed, moderate F31.62 and Generalized anxiety disorder F41.1 [place] [address] [place] [address] 97940- 7888 15 Dec, 2015 [place] [id number] [place] [address] 42439- 2737 Nov, Bipolar disorder, current episode mixed, moderate F31.62 ; Generalized anxiety disorder F41.1 and Seizure-like activity R56.9 [place] [id number] [place] [address] 94560- 3264 Oct, [place] [id number] [place] [address] 38805- 6372 Oct, Bipolar disorder, current episode mixed, moderate F31.62 [place] [id number] [place] [address] 49517- 7001 14 Oct, 2015 Well woman exam Z01.419 [...] Tobacco use Z72.0 and Hot flashes N95.1 [place] [address] [place] [address] 18253- 9146 09 Oct, 2015 Seizure-like activity R56.9 and Irregular periods N92.6 [place] [id number] [place] [address] 27619- 6450 07 Oct, 2015 Bipolar disorder, current episode mixed, moderate F31.62 ; Generalized anxiety disorder F41.1 and Underweight R63.6 [place] [address] [place] [address]- 7925 Oct, [facility] [id number] [place] [address] 30929- 3965 Oct, Generalized anxiety disorder F41.1 and Unspecified mood [ affective] disorder F39 [facility] [id number] [place] [address] 20857 -0407 Oct, Back pain M54.9 and Anxiety F41.9 [facility] [address] 67970- 2994 Oct, [facility] [address] 15525 -2884 Sep, Arm pain, left M79.602 [facility] [id number] [place] [address] 99567- 0844 Sep, [facility] [address] [id number] Sep, Dental examination Z01.20 and Dental caries K02.9 [facility] [id number] [place] [address] 78205- 1584 Sep, Generalized anxiety disorder F41.1 and Unspecified episodic mood disorder F39 [facility] [id number] [place] [address] 51012- 6332 Sep, Bilateral low back pain without sciatica M54.5 and Seizure- like activity R56.9 [facility] [id number] [place] [address] 25241- 2410 Aug, [facility] [id number] [place] [address] 62747- 8424 Aug, [facility] [address] 74737- 3340 Aug, [facility] [id number] [place] [address] 54659- 6217 Aug, Visual changes H53.9 and Bilateral low back pain without sciatica M54.5 [facility] [address] [place] [address] 60121- 1112 Jul, [facility] [id number] [place] [address] 81912- 2430 Jun, Bipolar I disorder, most recent episode (or current) mixed, moderate 296.62 ; Generalized anxiety disorder 300.02 and High risk medication use V58.69 [facility] [address] 66901- 0243 Jun, [facility] [address] 78819- 6005 May, [facility] [id number] [place] [address] 84768- 3698 May, Bipolar I disorder, most recent episode (or current) mixed, moderate 296.62 and Generalized anxiety disorder 300.02 [facility] [id number] [place] [address] [id number] May, Dental examination V72.2 [facility] [id number] [place] [address] 44115- 1753 March, Bipolar I disorder, most recent episode (or current) mixed, moderate 296.62 and Generalized anxiety disorder 300.02 [facility] [id number] [place] [address] 88728- 0256 March, [facility] [id number] [place] [address] 33319- 1207 March, [facility] [id number] [place] [address] 85315- 6787 March, Underweight 783.22 ; Hand pain, right 729.5 and Reflux gastritis 535.40 [facility] [id number] [place] [address] 53706- 7364 Feb, [facility] [id number] [place] [address] 31624- 9137 Feb, [facility] [place] [facility] [address] [id number] [place] [address]- 6040 18 Jan, 2014 [facility] [place] [facility] [address] [id number] [place] [address]- 2174 18 Jan, 2015 [facility] [place] [facility] [address] [id number] [place] [address]- 4653 16 Jan, 2014 [facility] [place] [facility] [address] [id number] [place] [address]- 2804 16 Jan, 2014 [facility] [place] [facility] [address] [id number] [place] [address]- 0866 13 Jan, 2015 [facility] [place] [facility] [address] [id number] [place] [address]- 7399 13 Jan, 2014 [facility] [place] [facility] [address] [id number] [place] [address]- 3520 05 Jan, 2015 [facility] [place] [facility] [address] [id number] [place] [address]- 9744 05 Jan, 2014 [facility] [place] [facility] [address] [id number] [place] [address]- 0834 04 Jan, 2015 [facility] [place] [facility] [address] [id number] [place] [address]- 9438 04 Jan, 2015 [facility] [place] [facility] [address] [id number] [place] [address]- 1537 Jan, [facility] [place] [facility] [address] [id number] [place] [address]- 3184 Jan, [facility] [place] [facility] [address] [id number] [place] [address]- 5773 Dec, [facility] [place] [facility] [address] [id number] [place] [address]- 1711 Dec, [facility] [place] [facility] [address] [id number] [place] [address]- 3477 19 Dec, 2014 [facility] [place] [facility] [address] [id number] [place] [address]- 3213 19 Dec, 2014 [facility] [place] [facility] [address] [id number] [place] [address] 2548 18 Dec, 2014 [facility] [place] [facility] [address] [id number] [place] [address] 2546 17 Dec, 2014 [facility] [place] [facility] [address] [facility] [id number] [place] [address]- 9086 17 Dec, 2014 [facility] [place] [facility] [address] [id number] [place] [address]- 2548 16 Dec, 2014 [facility] [place] [facility] [address] [id number] [place] [address]- 5988 16 Dec, 2014 [facility] [place] [facility] [address] [facility] [id number] [place] [address]- 2427 05 Dec, 2014 [facility] [place] [facility] [address] [facility] [id number] [place] [address]- 5696 05 Dec, 2014 [facility] [place] [facility] [address] [facility] [id number] [place] [address]- 2543 05 Dec, 2014 [facility] [place] [facility] [address] [facility] [id number] [place] [address]- 7579 05 Dec, 2014 [facility] [place] [facility] [address] [facility] [id number] [place] [address]- 9466 04 Dec, 2014 [facility] [place] [facility] [address] [facility] [id number] [place] [address] 2546 04 Dec, 2014 [facility] [place] [facility] [address] [facility] [id number] [place] [address]- 2548 04 Dec, 2014 [facility] [place] [facility] [address] [facility] [id number] [place] [address]- 5245 04 Dec, 2014 [facility] [place] [facility] [address] [facility] [id number] [place] [address]- 2546 03 Dec, 2014 [facility] [place] [facility] [address] [facility] [id number] [place] [address]- 254 Dec, [facility] [place] [facility] [address] [id number] [place] [address] Nov, [facility] [place] [facility] [address] [id number] [place] [address] Nov, [facility] [place] [facility] [address] [id number] [place] [address] Nov, [facility] [place] [facility] [address] [id number] [place] [address] Nov, [facility] [place] [facility] [address] [id number] [place] [address] Nov, [facility] [place] [facility] [address] [id number] [place] [address] Nov, [facility] [place] [facility] [id number] [id number] Nov, [facility] [place] [facility] [address] [id number], [place] [address] Nov, [facility] [place] [facility] [address] [id number] [place] [address] Nov, [facility] [place] [facility] [id number] [id number] Nov, [facility] [place] [facility] [address] [id number], [place] [address] Nov, [facility] [place] [facility] [address] [id number], [place] [address] Nov, [facility] [place] [facility] [address] [id number] [place] [address] Oct, [facility] [facility] [address] [id number] [place] [address] Oct, [facility] [place] [facility] [address] [id number], [place] [address] Oct, [facility] [place] [facility] [address] [id number], [place] [address] Oct, [facility] [place] [facility] [address] [id number] [place] [address] Oct, [facility] [place] [facility] [address] [id number] [place] [address] 5558 Oct, [facility] [place] [facility] [address] [facility] [id number] [place] [address]226 Oct, [facility] [place] [facility] [address] [id number] [place] [address] 79[address] Oct, [facility] [place] [facility] [address] [id number] [place] [address] 1617 Oct, [facility] [place] [facility] [address] [id number] [place] [address] 8759 Oct, [facility] [place] [facility] [address] [facility] [id number] [place] [address] 5698 Oct, [facility] [place] [facility] [address] [facility] [id number] [place] [address]- 1004 Oct, [facility] [place] [facility] [address] [facility] [id number] [place] [address]- 5747 Sep, [facility] [place] [facility] [address] [facility] [id number] [place] [address]- 8762 Sep, [facility] [place] [facility] [address] [facility] [id number] [place] [address]- 2874 Sep, [facility] [place] [facility] [address] [id number] [place] [address]- 6984 Sep, [facility] [place] [facility] [address] [id number] [place] [address]- 5664 Sep, [facility] [place] [facility] [address] [facility] [id number] [place] [address]- 3716 Sep, [facility] [place] [facility] [address] [facility] [id number] [place] [address]- 6537 Sep, [facility] [place] [facility] [address] [id number] [place] [address]- 9613 Sep, [facility] [place] [facility] [address] [id number] [place] [address]- 0606 Aug, [facility] [place] [facility] [address] [id number] [place] [address] Aug, [facility] [place] [facility] [address] [id number] [place] [address]- 0838 Aug, [facility] [place] [facility] [address] [id number] [place] [address]- 7161 Aug, [facility] [place] [facility] [address] [id number] [place] [address]- 1521 Aug, [facility] [place] [facility] [address] [id number] [place] [address]- 7628 Aug, [facility] [place] [facility] [address] [id number] [place] [address]- 2129 Aug, [facility] [place] [facility] [address] [id number] [place] [address]- 7471 Aug, [facility] [place] [facility] [address] [id number] [place] [address]- 6695 Aug, [facility] [place] [facility] [address] [id number] [place] [address]- 5179 Aug, [facility] [place] [facility] [address] [id number] [place] [address]- 4356 Aug, [facility] [place] [facility] [address] [id number] [place] [address]- 4414 Aug, [facility] [place] [facility] [address] [id number] [place] [address]- 3724 Aug, [facility] [place] [facility] [address] [id number] [place] [address]- 4773 22 Jul, 2013 [facility] [facility] [address] [id number] [place] [address]- 9165 Jul, [facility] [place] [facility] [address] [id number] [place] [address]- 0672 Jul, [facility] [place] [facility] [address] [id number] [place] [address]- 4910 Jul, [facility] [place] [facility] [address] [id number] [place] [address]- 7353 Jun, [facility] [place] [facility] [address] [id number] [place] [address]- 7195 Jun, [facility] [place] [facility] [address] [id number] [place] [address]- 4539 Jun, [facility] [place] [facility] [address] [id number] [place] [address]- 4548 Jun, [facility] [place] [facility] [address] [id number] [place] [address]- 6546 Jun, [facility] [facility] [address] [id number] [place] [address]- 2889 Jun, [facility] [address] [id number] [place] [address]- 6174 May, [facility] [address] [id number] [place] [address]- 0013 May, [facility] [facility] [address] [id number] [place] [address]- 9810 May, [facility] [address] [id number] [place] [address]- 0637 May, [facility] [address] [id number] [place] [address]- 5259 Apr, [facility] [address] [id number] [place] [address]- 4897 Apr, [facility] [address] [id number] [place] [address]- 4046 March, [facility] [address] [id number] [place] [address]- 0834 March, [facility] [address] [id number] [place] [address]- 9950 March, [facility] [address] [id number] [place] [address]- 7951 March, [facility] [address] [id number] [place] [address]- 2313 March, [facility] [address] [id number] [place] [address]- 4321 March, [facility] [address] [id number] [place] [address]- 2847 Feb, [facility] [address] [id number] [place] [address]- 8922 Feb, [facility] [address] [id number] [place] [address]- 7224 Dec, [facility] [address] [id number] [place] [address]- 9275 Dec, [facility] [address] [id number] [place] [address]- 7503 Nov, [facility] [address] [id number] [place] [address]- 6173 Nov, [facility] [address] [id number] [place] [address]- 5992 Sep, [facility] [address] [id number] [place] [address]- 8760 Sep, [facility] [address] [id number] [place] [address] Sep, [facility] [address] [id number] [place] [address]- 0804 Sep, [facility] [address] [id number] [place] [address] Sep, [facility] [address] [id number] [place] [address]- 3727 Sep, [facility] [address] [id number] [place] [address]- 6812 Sep, [facility] [address] [id number] [place] [address]- 8761 Aug, [facility] [address] [id number] [place] [address]- 6330 Aug, [facility] [address] [id number] [place] [address]- 2889 Aug, [facility] [address] [id number] [place] [address]- 5820 Aug, [facility] [address] [id number] [place] [address]- 9401 Aug, [facility] [address] [id number] [place] [address]- 9853 Aug, [facility] [address] [id number] [place] [address]- 4153 Jul, [facility] [address] [id number] [place] [address]- 8823 Jul, [facility] [address] [id number] [place] [address]- 1592 16 Jul, 2013 [facility] [address] [id number], [place] [address]- 0435 13 Jul, 2013 [facility] [address] [id number] [place] [address]- 4362 Jun, [facility] [address] [id number] [place] [address]- 6928 Jun, [facility] [address] [id number] [place] [address]- 5298 Jun, [facility] [address] [id number] [place] [address]- 3865 Jun, [facility] [address] [id number] [place] [address]- 9584 Jun, [facility] [address] [id number] [place] [address]- 4721 Jun, [facility] [address] [id number] [place] [address]- 5137 Jun, [facility] [address] [id number] [place] [address]- 3680 May, [facility] [address] [id number] [place] [address]- 9975 May, [facility] [address] [id number] [place] [address]- 9599 May, [facility] [address] [id number] [place] [address]- 5827 May, [facility] [address] [id number] [place] [address]- 2353 May, [facility] [address] [id number] [place] [address]- 6688 May, [facility] [address] [id number] [place] [address]- 5479 May, [facility] [address] [id number] [place] [address]- 7500 Apr, [facility] [address] [id number] [place] [address]- 0493 Apr, [facility] [address] [id number] [place] [address]- 8797 Apr, [facility] [address] [id number] [place] [address]- 6163 Apr, [facility] [address] [id number] [place] [address]- 7906 Apr, [facility] [address] [id number] [place] [address]- 1390 18 Apr, 2013 [facility] [address] [id number] [place] [address]- 8837 18 Apr, 2013 [facility] [address] [id number] [place] [address]- 1292 18 Apr, 2013 [facility] [address] [id number] [place] [address]- 9692 17 Apr, 2013 [facility] [address] [id number] [place] [address]- 0773 14 Apr, 2013 [facility] [address] [id number] [place] [address]- 7769 14 Apr, 2013 [facility] [address] [id number] [place] [address]- 7490 11 Apr, 2013 [facility] [address] [id number] [place] [address]- 2830 10 Apr, 2013 [facility] [address] [id number] [place] [address]- 4141 09 Apr, 2013 [facility] [address] [id number] [place] [address]- 9882 07 Apr, 2013 [facility] [address] [id number] [place] [address]- 0465 06 Apr, 2013 [facility] [address] [id number] [place] [address]- 4217 06 Apr, 2013 [facility] [address] [id number] [place] [address]- 3030 05 Apr, 2013 [facility] [address] [id number] [place] [address]- 8723 Apr, [facility] [address] [id number] [place] [address]- 8986 March, [facility] [address] [id number] [place] [address]- 8019 March, [facility] [address] [id number] [place] [address]- 6599 16 Mar, 2013 [facility] [address] [id number] [place] [address]- 6121 March, [facility] [address] [id number] [place] [address]- 0618 March, [facility] [address] [id number] [place] [address]- 3556 March, [facility] [address] [id number] [place] [address]- 4554 March, [facility] [address] [id number] [place] [address]- 9635 Feb, [facility] [address] [id number] [place] [address]- 6752 Feb, [facility] [address] [id number] [place] [address]- 5989 27 Jan, 2013 [facility] [address] [id number] [place] [address]- 9543 18 Jan, 2013 [facility] [address] [id number] [place] [address]- 6156 15 Jan, 2013 [facility] [address] [id number] [place] [address]- 7319 14 Jan, 2013 [facility] [address] [id number] [place] [address]- 7498 13 Jan, 2013 [facility] [address] [id number] [place] [address]- 8761 12 Jan, 2013 [facility] [address] [id number] [place] [address]- 2344 11 Jan, 2013 [facility] [address] [id number] [place] 2198 09 Jan, 2013 [facility] [address] [id number] [place] [address]- 8456 08 Jan, 2013 [facility] [address] [id number] [place] [address]- 1934 07 Jan, 2013 [facility] [address] [id number] [place] [address]- 0601 06 Jan, 2013 [facility] [address] [id number] [place] [address]- 8009 17 Nov, 2012 [facility] [address] [id number] [place] [address]- 6429 Oct, [facility] [address] [id number] [place] [address]- 0683 Oct, [facility] [address] [id number] [place] [address]- 8338 Oct, [facility] [address] [id number] [place] [address]- 3102 Oct, [facility] [address] [id number] [place] [address]- 3097 30 Sep, 2012 [facility] [facility] [address] [id number] [place] [address]- 7592 30 Sep, 2012 [facility] [address] [id number] [place] [address]- 5656 Sep, [facility] [address] [id number] [place] [address]- 4880 16 Sep, 2012 [facility] [address] [id number] [place] [address]- 2889 16 Sep, 2012 [facility] [address] [id number] [place] [address]- 3917 16 Sep, 2012 [facility] [address] [id number] [place] [address]- 0239 16 Sep, 2012 [facility] [address] [id number] [place] [address]- 6292 09 Sep, 2012 [facility] [address] [id number] [place] [address]- 6089 Sep, [facility] [address] [id number] [place] [address]- 1476 Sep, [facility] [place] [facility] [address] [id number] [place] [address] 2546 Sep, [facility] [place] [facility] [address] [id number] [place] [address]- 5663 Aug, [facility] [place] [facility] [address] [id number] [place] [address]- 4751 Aug, [facility] [place] [facility] [address] [id number] [place] [address]- 3514 Aug, [facility] [place] [facility] [address] [id number] [place] [address]- 1052 28 Jul, 2012 [facility] [place] [facility] [address] [id number] [place] [address]- 5262 25 Jul, 2012 [facility] [place] [facility] [address] [id number] [place] [address]- 1827 19 Jul, 2012 [facility] [place] [facility] [address] [id number] [place] [address]- 8232 17 Jul, 2012 [facility] [place] [facility] [address] [id number] [place] [address]- 5977 20 Jun, 2012 [facility] [place] [facility] [address] [id number] [place] [address]- 8228 16 Jun, 2012 [facility] [place] [facility] [address] [id number] [place] [address]- 5566 15 Jun, 2012 [facility] [place] [facility] [address] [id number] [place] [address] 2546 15 Jun, 2012 [facility] [place] [facility] [address] [id number] [place] [address]- 2549 13 Jun, 2012 [facility] [place] [facility] [address] [id number] [place] [address]- 3809 18 Mar, 2012 [facility] [address] [id number] [place] [address]- 9803 04 Feb, 2012 [facility] [place] [facility] [address] [id number] [place] [address]- 4736 28 Jan, 2012 [facility] [place] [facility] [address] [facility] [id number] [place] [address]- 6256 27 Jan, 2012 [facility] [place] [facility] [address] [id number] [place] [address]- 5417 22 Jan, 2012 [facility] [place] [facility] [address] [id number] [place] [address]- 7747 14 Jan, 2012 [facility] [place] [facility] [address] [facility] [id number] [place] [address]- 3586 14 Jan, 2012 [facility] [place] [facility] [address] [facility] [id number] [place] [address]- 8898 14 Jan, 2012 [facility] [place] [facility] [address] [facility] [id number] [place] [address]- 2981 28 Dec, 2011 [facility] [place] [facility] [address] [id number] [address]- 8358 27 Dec, 2011 [facility] [place] [facility] [address] [facility] [id number] [place] [address]- 2086 23 Dec, 2011 [facility] [place] [facility] [address]00565100[facility] [address]- 7116 21 Dec, 2011 [facility] [place] [facility] [address] [facility] [id number] [place] [address]- 0252 20 Dec, 2011 [facility] [place] [facility] [address] [facility] [id number] [place] [address]- 7826 19 Dec, 2011 [facility] [place] [facility] [address] [facility] [id number] [place] [address]- 5026 17 Dec, 2011 [facility] [place] [facility] [address]00565100[facility] [address]- 1986 16 Dec, 2011 [facility] [place] [facility] [address] [id number] [address]- 6328 Nov, [facility] [id number], [place] [address]- 7670 Oct, [facility] [address] [facility] [id number], [place] [address]- 3347 Sep, [facility] [id number], [place] [address]- 6934 Sep, [facility] [address] [facility] [id number], [place] [address]- 3014 Sep, [facility] [id number], [place] [address]- 9550 Sep, [facility] [id number], [place] [address]- 5865 Sep, [facility] [address], [place] [address]- 6983 Sep, [facility] [address] [address] Jan, [facility] [id number], [place] [address]- 0778 Apr, IMMUNIZATIONS No Known Immunizations SOCIAL HISTORY Never Assessed REASON FOR VISIT ER f/u, Monday abdominal pain Jacinta Mathis MA PLAN OF CARE Activity Details Follow Up prn with PCP Reason: VITAL SIGNS Height 66 in 2018-08-07 Weight 134.2 lbs 2018-08-07 Temperature 97.8 degrees Fahrenheit 2018-08-07 Heart Rate 75 bpm 2018-08-07 Respiratory Rate 18 2018-08-07 BMI 21.66 kg/m2 2018-08-07 Blood pressure systolic 96 mmHg 2018-08-07 Blood pressure diastolic 54 mmHg 2018-08-07 MEDICATIONS Medication Instructions Dosage Frequency Start Date End Date Duration Status Lamictal 200 mg Orally Once a day 1 tablet 24h Active Abilify 10 MG Orally Once a day 1 tablet 24h Active Hydrocodone-Acetaminophen 5-325 mg Orally 2 times a day 1 tablet as needed 12h 25 Jul, 2018 Aug, 7 days Active Klonopin 0.5 MG Orally 4 times a day as needed 1 tablet 30 days Active Toprol XL 25 MG 1 tablet Active ibuprofen 800 Oral 3 times a day 1 tab 8h 15 Aug, 2018 10 days Active Remeron 45 MG Orally Once a day at bedtime 1 tablet Active RESULTS No Results PROCEDURES No Known [...]
--- OUTSIDE RECORDS SUMMARY | 2019-03-04 16:47 | XMS REPORT ---
Author Author TOMASZ MARGARITA [facility] Address [address] [place] [address] Care Team Providers Care Can Worker Name Role Phone TOMASZ, MARGARITA Unavailable PROBLEMS Type Condition ICD9-CM Code TOJ38-BV Code Onset Dates Condition Status SNOMED Code Problem Generalized anxiety disorder F41.1 Active 40374524 Problem Acute non intractable tension-type headache G44.209 Active 808904063 Problem Acute right-sided low back pain with right-sided sciatica M54.41 Active 752598731 Problem Post traumatic stress disorder F43.10 Active 22278157 Problem Bipolar disorder, current episode mixed, moderate F31.62 Active 991429633 Problem Endometriosis N80.9 Active 157367077 Problem Borderline personality disorder F60.3 Active 94883051 ALLERGIES Substance Reaction Event Type Date Status Thioridazine HCl tachycardia Drug Allergy Jul, Active Pristiq Unknown Drug Allergy Jul, Active Penicillin V Potassium rash Drug Allergy Jul, Active Diclofenac Sodium nausea Drug Allergy Jul, Active Depakote fatigue Drug Allergy Jul, Active ENCOUNTERS Encounter Location Date Diagnosis [facility] [id number] [place] [address] 74368- 7479 Oct, [facility] [id number] [place] [address] 19386- 8690 Jul, Thrombophlebitis I80.9 [address] Pel[address] pain R10.2 [facility] [id number] [place] [address] 10544- 9372 Jul, Bipolar disorder, current episode mixed, moderate F31.62 ; Post traumatic stress disorder F43.10 and Borderline personality disorder F60.3 [facility] [address] [address] Jun, Bipolar disorder, current episode mixed, moderate F31.62 [facility] [id number] [place] [address] 07107- 5016 13 May, [address] [facility] [id number] [place] [address] 69842- 4777 13 May, [address] [facility] [id number] [place] [address] 98039- 7907 12 May, 2018 Palpitations R00.2 and Frequent bowel movements R19.4 [place] [facility] [id number] [place] [address] 12984- 9533 05 May, 2018 Bipolar disorder, current episode mixed, moderate F31.62 ; Post traumatic stress disorder F43.10 and Borderline personality disorder F60.3 [facility] [id number] [place] [address] [id number] 15 Apr, 2018 Dental examination Z01.20 [facility] [id number] [place] [address] 52505 -8565 15 Apr, 2018 [facility] [id number] [place] [address] 73265- 3088 Apr, Dental examination Z01.20 [facility] [id number] [place] [address] 92844 -2461 15 Apr, [address] [facility] [id number] [place] [address] 31056- 4932 06 Apr, 2018 Bipolar disorder, current episode mixed, moderate F31.62 ; Post traumatic stress disorder F43.10 and Borderline personality disorder F60.3 [facility] [id number] [place] [address] 30888 -7513 March, Abdominal pain R10.9 ; UTI symptoms R39.9 and Other microscopic hematuria R31.29 [facility] [id number] [place] [address] 10460- 0075 March, [facility] [address] 98136- 7208 March, Bipolar disorder, current episode mixed, moderate F31.62 ; Post traumatic stress disorder F43.10 and Borderline personality disorder F60.3 [facility] [id number] [place] [address] 48786- 4926 Feb, Encounter for immunization Z23 [facility] [id number] [place] [address] 08883- 0114 Feb, Bipolar disorder, current episode mixed, moderate F31.62 ; Post traumatic stress disorder F43.10 and Borderline personality disorder F60.3 [facility] [id number] [place] [address] 51129- 8368 Feb, Bipolar disorder, current episode mixed, moderate F31.62 ; Post traumatic stress disorder F43.10 ; Borderline personality disorder F60.3 and Other sonographer (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 Z79.899 [place] [id number] [place] [address] 25780- 5773 Jan, Encounter for immunization Z23 [facility] [id number] [place] [address] 76681- 9894 Jan, [facility] [id number] [place] [address] 48648- 6964 Jan, Bipolar disorder, current episode mixed, moderate F31.62 [facility] [id number] [place] [address] 99400 -4705 Jan, Lumbar back pain M54.5 [facility] [id number] [place] [address] 94683- 4284 Dec, Low back pain M54.5 [facility] [id number] [place] [address] 20233- 7724 Dec, Bipolar disorder, current episode mixed, moderate F31.62 [facility] [id number] [place] [address] 36835- 0584 Dec, Generalized anxiety disorder F41.1 and Bipolar disorder, current episode mixed, moderate F31.62 [facility] [id number] [place] [address] 33718 -3210 Nov, Acute non intractable tension-type headache G44.209 [facility] [id number] [place] [address] Nov, Bipolar disorder, current episode mixed, moderate F31.62 ; Post traumatic stress disorder F43.10 and Borderline personality disorder F60.3 [place] [address] 78315- 1343 Nov, Bipolar disorder, current episode mixed, moderate F31.62 [facility] [address] [id number] -2600 Nov, Abdominal pain R10.9 ; History of PCOS Z87.42 ; History of endometriosis Z87.42 and Pelvic pain R10.2 [place] [address] 57042- 1802 Nov, [facility] [id number] [place] [address] 42573 -4714 Oct, History of PCOS Z87.42 ; History of endometriosis Z87.42 and Pain R52 [facility] [facility] [id number] [place] [address] 03122- 7790 Oct, Bipolar disorder, current episode mixed, moderate F31.62 ; Post traumatic stress disorder F43.10 and Borderline personality disorder F60.3 [facility] [facility] [id number] [place] [address] 92135- 6295 Oct, Bipolar disorder, current episode mixed, moderate F31.62 [facility] [address] 25325523- 8530 Sep, Bipolar disorder, current episode mixed, moderate F31.62 ; Post traumatic stress disorder F43.10 ; Borderline personality disorder F60.3 and Other fdc (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 Z79.899 [place] [address] 015422- 2546 Sep, Bipolar disorder, current episode mixed, moderate F31.62 [facility] [id number] [place] [address] 50106 -6708 Sep, Endometriosis N80.9 and Acute right-sided low back pain with right-sided sciatica M54.41 [facility] [facility] [id number] [place] [address] 17380- 9434 Aug, [facility] [facility] [id number] [place] [address] 96205- 3959 Aug, Bipolar disorder, current episode mixed, moderate F31.62 ; Post traumatic stress disorder F43.10 and Borderline personality disorder F60.3 [place] [facility] [id number] [place] [address] 07323- 6485 Aug, Bipolar disorder, current episode mixed, moderate F31.62 ; Post traumatic stress disorder F43.10 and Borderline personality disorder F60.3 [place] [facility] [id number] [place] [address] 72194- 6440 13 Jul, 2017 Bipolar disorder, current episode mixed, moderate F31.62 ; Post traumatic stress disorder F43.10 and Borderline personality disorder F60.3 [facility] [address] [place] [address] 05908 -1907 11 Jul, 2017 Pharyngitis, unspecified etiology J02.9 and Streptococcal pharyngitis J02.0 [place] [address] [place] [address] 12910- 7300 16 Jun, 2017 Bipolar disorder, current episode mixed, moderate F31.62 ; Post traumatic stress disorder F43.10 and Borderline personality disorder F60.3 [place] [id number] [place] [address] 91683- 6211 May, [place] [facility] [id number] [place] [address] 26276- 6844 May, [facility] [id number] [place] [address] 10483- 6181 May, Bipolar disorder, current episode mixed, moderate F31.62 and Generalized anxiety disorder F41.1 [place] [address] [id number]- 2379 March, Bipolar disorder, current episode mixed, moderate F31.62 and Generalized anxiety disorder F41.1 [place] [address] 46859- 0958 March, Pelvic pain R10.2 [place] [address] 73461- 1167 March, [place] [address] 015427- 3596 Feb, Bipolar disorder, current episode mixed, moderate F31.62 and Generalized anxiety disorder F41.1 [place] [address] 72741- 5556 Jan, [facility] [address] 31959- 5040 Jan, Bipolar disorder, current episode mixed, moderate F31.62 [place] [address] 54029- 7642 Jan, Bipolar disorder, current episode mixed, moderate F31.62 [place] [address] 19702- 4104 Jan, Bilateral low back pain without sciatica M54.5 [facility] [id number] [place] [address] [id number] Jan, Dental caries K02.9 and Dental examination Z01.20 [facility] [address] [id number] Jan, 2017 Encounter for dental examination and cleaning without abnormal findings Z01.20 [facility] [id number] [place] [address] 99931- 5930 06 Jan, 2017 Bipolar disorder, current episode mixed, moderate F31.62 and Generalized anxiety disorder F41.1 [facility] [id number] [place] [address] 15034- 3245 Dec, [facility] [id number] [place] [address] 38898- 4496 Dec, Bipolar disorder, current episode mixed, moderate F31.62 and Generalized anxiety disorder F41.1 [facility] [facility] [id number] [place] [address] 90168- 8815 Dec, Other fatigue R53.83 and Orthostatic hypotension I95.1 [facility] [address] [id number] Nov, Dental examination Z01.20 [facility] [id number] [place] [address] 64972 -2613 Nov, Bronchitis J40 [place] [id number] [place] [address] 78865- 2254 Oct, Generalized anxiety disorder F41.1 [place] [id number] [place] [address] 75366- 9453 14 Sep, 2016 Bipolar disorder, current episode mixed, moderate F31.62 and Generalized anxiety disorder F41.1 [place] [id number] [place] [address] 24419- 7606 Sep, Bipolar disorder, current episode mixed, moderate F31.62 and Generalized anxiety disorder F41.1 [facility] [id number] [place] [address] 37885 -1892 08 Jul, 2016 Upper respiratory tract infection, unspecified type J06.9 [facility] [id number] [place] [address] 67806- 9351 Jun, Bipolar disorder, current episode mixed, moderate F31.62 and Generalized anxiety disorder F41.1 [place] [id number] [place] [address] 73228- 3197 Apr, [facility] [address] 10607- 1084 Apr, Encounter for test, result positive Z32.01 [facility] [id number] [place] [address] 63077- 7843 March, [facility] [id number] [place] [address] 54749- 0525 March, Bipolar disorder, current episode mixed, moderate F31.62 and Generalized anxiety disorder F41.1 [facility] [id number] [place] [address] 04260- 1514 March, Bipolar disorder, current episode mixed, moderate F31.62 and Generalized anxiety disorder F41.1 [facility] [id number] [place] [address] 13564- 6743 March, [facility] [id number] [place] [address] 63267- 3060 March, [facility] [id number] [place] [address] 11454- 8891 Feb, [facility] [id number] [place] [address] 90017- 6461 Feb, [facility] [id number] [place] [address] 08193- 6505 Feb, Bipolar disorder, current episode mixed, moderate F31.62 and Generalized anxiety disorder F41.1 [facility] [id number] [place] [address] 38409- 1274 Jan, Abdominal pain R10.9 [facility] [address] [place] [address] 11969- 9629 Jan, [facility] [id number] [place] [address] 70860- 3217 Dec, Dental examination Z01.20 [place] [id number] [place] [address] 32639- 9202 Dec, Dental examination Z01.20 and Dental caries K02.9 [place] [address] [address]- 7257 15 Dec, 2015 Bipolar disorder, current episode mixed, moderate F31.62 and Generalized anxiety disorder F41.1 [place] [id number] [place] [address] 98001- 8970 15 Dec, 2015 [place] [id number] [place] [address] 453752- 7842 Nov, Bipolar disorder, current episode mixed, moderate F31.62 ; Generalized anxiety disorder F41.1 and Seizure-like activity R56.9 [place] [id number] [place] [address] 60799- 7646 Oct, [place] [address] 77917- 5690 Oct, Bipolar disorder, current episode mixed, moderate F31.62 [place] [id number] [place] [address] 44493- 2778 14 Oct, 2015 Well woman exam Z01.419 [...] Tobacco use Z72.0 and Hot flashes N95.1 [place] [address] [place] [address] 31536- 0966 09 Oct, 2015 Seizure-like activity R56.9 and Irregular periods N92.6 [place] [id number] [place] [address] 19702- 9728 07 Oct, 2015 Bipolar disorder, current episode mixed, moderate F31.62 ; Generalized anxiety disorder F41.1 and Underweight R63.6 [place] [id number] [place] [address] 80776- 2248 Oct, [facility] [id number] [place] [address] 17516- 6249 Oct, Generalized anxiety disorder F41.1 and Unspecified mood [ affective] disorder F39 [facility] [id number] [place] [address] 48615 -7920 Oct, Back pain M54.[address] [facility] [address] 66655- 0469 Oct, [facility] [address] 43316 -0463 Sep, Arm pain, left M79.602 [facility] [id number] [place] [address] 57494- 4562 Sep, [facility] [address] [id number] Sep, Dental examination Z01.20 and Dental caries K02.9 [facility] [id number] [place] [address] 89927- 4452 Sep, Generalized anxiety disorder F41.1 and Unspecified episodic mood disorder F39 [facility] [id number] [place] [address] 79785- 2077 Sep, Bilateral low back pain without sciatica M54.5 and Seizure- like activity R56.9 [facility] [id number] [place] [address] 30159- 0366 Aug, [facility] [id number] [place] [address] 90778- 1382 Aug, [facility] [address] 02520- 1217 Aug, [facility] [id number] [place] [address] 76530- 1934 Aug, Visual changes H53.9 and Bilateral low back pain without sciatica M54.5 [facility] [address] [place] [address] 02812- 2281 Jul, [facility] [id number] [place] [address] 58867- 9331 Jun, Bipolar I disorder, most recent episode (or current) mixed, moderate 296.62 ; Generalized anxiety disorder 300.02 and High risk medication use V58.69 [facility] [id number] [place] [address] 62195- 8819 Jun, [facility] [id number] [place] [address] 19996- 8063 May, [facility] [id number] [place] [address] 12611- 0100 May, Bipolar I disorder, most recent episode (or current) mixed, moderate 296.62 and Generalized anxiety disorder 300.02 [facility] [id number] [place] [address] [id number] May, Dental examination V72.2 [facility] [id number] [place] [address] 88846- 0942 March, Bipolar I disorder, most recent episode (or current) mixed, moderate 296.62 and Generalized anxiety disorder 300.02 [facility] [id number] [place] [address] 73013- 8544 March, [facility] [id number] [place] [address] 25474- 5004 March, [facility] [id number] [place] [address] 54245- 5422 March, Underweight 783.22 ; Hand pain, right 729.5 and Reflux gastritis 535.40 [facility] [id number] [place] [address] 63176- 1556 Feb, [facility] [id number] [place] [address] 47904- 2305 Feb, [facility] [address] [facility] [id number] [place] [address]- 0575 18 Jan, 2014 [facility] [place] [facility] [address] [id number] [place] [address]- 7336 18 Jan, 2015 [facility] [place] [facility] [address] [id number] [place] [address]- 4992 16 Jan, 2014 [facility] [place] [facility] [address] [id number] [place] [address]- 1987 16 Jan, 2014 [facility] [place] [facility] [address] [id number] [place] [address]- 3424 13 Jan, 2014 [facility] [place] [facility] [address] [id number] [place] [address]- 6025 13 Jan, 2014 [facility] [place] [facility] [address] [id number] [place] [address]- 6694 05 Jan, 2015 [facility] [place] [facility] [address] [id number] [place] [address]- 7689 05 Jan, 2014 [facility] [place] [facility] [address] [id number] [place] [address]- 2705 04 Jan, 2015 [facility] [place] [facility] [address] [id number] [place] [address]- 6047 04 Jan, 2015 [facility] [place] [facility] [address] [id number] [place] [address]- 7366 Jan, [facility] [place] [facility] [address] [id number] [place] [address]- 9241 Jan, [facility] [place] [facility] [address] [id number] [place] [address]- 6313 Dec, [facility] [place] [facility] [address] [id number] [place] [address]- 4656 Dec, [facility] [place] [facility] [address] [id number] [place] [address]- 6216 Dec, [facility] [place] [facility] [address] [id number] [place] [address]- 6421 19 Dec, 2014 [facility] [place] [facility] [address] [facility] [id number] [place] [address]- 0178 18 Dec, 2014 [facility] [place] [facility] [address] [facility] [id number] [place] [address]- 1716 17 Dec, 2014 [facility] [place] [facility] [address] [facility] [id number] [place] [address]- 3956 17 Dec, 2014 [facility] [place] [facility] [address] [facility] [id number] [place] [address]- 254 16 Dec, 2014 [facility] [place] [facility] [address] [facility] [id number] [place] [address]- 8848 16 Dec, 2014 [facility] [place] [facility] [address] [facility] [id number] [place] [address]- 3052 05 Dec, 2014 [facility] [place] [facility] [address] [id number] [place] [address]- 7809 05 Dec, 2014 [facility] [place] [facility] [address] [facility] [id number] [place] [address]- 2547 05 Dec, 2014 [facility] [place] [facility] [address] [facility] [id number] [place] [address]- 1487 05 Dec, 2014 [facility] [place] [facility] [address] [facility] [id number] [place] [address]- 9506 04 Dec, 2014 [facility] [place] [facility] [address] [id number] [place] [address] 2546 04 Dec, 2014 [facility] [place] [facility] [address] [facility] [id number] [address]- 2544 04 Dec, 2014 [facility] [place] [facility] [address] [facility] [id number] [place] [address]- 1403 04 Dec, 2014 [facility] [place] [facility] [address] [facility] [id number] [place] [address]- 2542 Dec, 2014 [facility] [place] [facility] [address] [place] [address]- 6574 Dec, [facility] [place] [facility] [address] [id number] [place] [address]- 2546 Nov, [facility] [place] [facility] [address] [id number] [place] [address] Nov, [facility] [place] [facility] [address] [id number] [place] [address] Nov, [facility] [place] [facility] [address] [id number] [place] [address] Nov, [facility] [place] [facility] [address] [id number] [place] [address] Nov, [facility] [place] [facility] [address] [id number] [place] [address] Nov, [facility] [place] [facility] [id number] [id number] Nov, [facility] [place] [facility] [address] [id number] [place] [address] Nov, [facility] [place] [facility] [address] [id number] [place] [address] Nov, [facility] [place] [facility] [id number] [id number] Nov, [facility] [place] [facility] [address] [id number] [place] [address] Nov, [facility] [place] [facility] [address] [id number] [place] [address] Nov, [facility] [place] [facility] [address] [id number] [place] [address] Oct, [facility] [place] [facility] [address] [id number] [place] [address] Oct, [facility] [place] [facility] [address] [id number] [place] [address] Oct, [facility] [place] [facility] [address] [id number] [place] [address] Oct, [facility] [place] [facility] [address] [id number] [place] [address] Oct, [facility] [place] [facility] [address] [id number] [place] [address] Oct, [facility] [place] [facility] [address] [id number] [place] [address] Oct, [facility] [place] [facility] [address] [id number] [place] [address] Oct, [facility] [place] [facility] [address] [id number] [place] [address] Oct, [facility] [place] [facility] [address] [id number] [place] [address] Oct, [facility] [place] [facility] [address] [id number] [place] [address] Oct, [facility] [place] [facility] [address] [id number] [place] [address] Oct, [facility] [place] [facility] [address] [id number] [place] [address] Sep, [facility] [place] [facility] [address] [id number] [place] [address] 8[address] Sep, [facility] [place] [facility] [address] [id number] [address] Sep, [facility] [place] [facility] [address] [id number] [place] [address] Sep, [facility] [place] [facility] [address] [id number] [place] [address] 1333 Sep, [facility] [place] [facility] [address] [id number] [place] [address]- 1682 Sep, [facility] [place] [facility] [address] [id number] [place] [address]- 4068 Sep, [facility] [place] [facility] [address] [id number] [place] [address]- 2007 Sep, [facility] [place] [facility] [address] [id number] [place] [address] 2316 Aug, [facility] [place] [facility] [address] [id number] [place] [address]- 2825 Aug, [facility] [place] [facility] [address] [id number] [place] [address]- 9703 Aug, [facility] [place] [facility] [address] [id number] [place] [address]- 9670 Aug, [facility] [place] [facility] [address] [id number] [place] [address] Aug, [facility] [place] [facility] [address] [id number] [place] [address]- 6947 Aug, [facility] [place] [facility] [address] [id number] [place] [address]- 3488 Aug, [facility] [place] [facility] [address] [id number] [place] [address]- 3823 Aug, [facility] [place] [facility] [address] [id number] [place] [address]- 8454 Aug, [facility] [place] [facility] [address] [id number] [place] [address]- 0782 Aug, [facility] [place] [facility] [address] [id number] [place] [address]- 6189 Aug, 2013 [facility] [place] [facility] [address] [id number] [place] [address]- 5759 Aug, [facility] [place] [facility] [address] [id number] [place] [address]- 3103 Aug, [facility] [place] [facility] [address] [id number] [place] [address]- 0868 Jul, [facility] [place] [facility] [address] [id number] [id number] [address] Jul, [facility] [place] [facility] [address] [id number] [place] [address]- 1642 Jul, [facility] [place] [facility] [address] [id number] [place] [address]- 0974 Jul, [facility] [place] [facility] [address] [id number] [place] [address]- 4260 Jun, [facility] [place] [facility] [address] [id number] [place] [address]- 3051 Jun, [facility] [place] [facility] [address] [id number] [place] [address]- 5363 Jun, [facility] [place] [facility] [address] [id number] [place] [address] 1876 Jun, [facility] [place] [facility] [address] [id number] [place] [address]- 2742 Jun, [facility] [place] [facility] [address] [id number] [place] [address]- 7573 Jun, [facility] [place] [facility] [address] [id number] [place] [address]- 4121 May, [facility] [place] [facility] [address] [id number] [place] [address]- 3686 May, [facility] [place] [facility] [address] [id number] [place] [address]- 1690 May, [facility] [place] [facility] [address] [id number] [place] [address]- 2736 May, [facility] [place] [facility] [address] [id number] [place] [address]- 1142 Apr, [facility] [place] [facility] [address] [id number] [place] [address]- 7891 Apr, [facility] [place] [facility] [address] [id number] [place] [address]- 3837 March, [facility] [place] [facility] [address] [id number] [place] [address]- 2988 March, [facility] [place] [facility] [address] [id number] [place] [address]- 7954 March, [facility] [place] [facility] [address] [id number] [place] [address]- 3759 March, [facility] [place] [facility] [address] [id number] [place] [address]- 1650 March, [facility] [place] [facility] [address] [id number] [place] [address]- 6247 March, [facility] [place] [facility] [address] [id number] [place] [address]- 2087 Feb, [facility] [place] [facility] [address] [id number] [place] [address]- 8893 Feb, [facility] [place] [facility] [address] [id number] [place] [address]- 3176 Dec, [facility] [place] [facility] [address] [id number] [place] [address]- 2661 Dec, [facility] [place] [facility] [address] [id number] [place] [address]- 5555 Nov, [facility] [place] [facility] [address] [id number] [place] [address]- 4767 Nov, [facility] [place] [facility] [address] [id number] [place] [address]- 7886 Sep, [facility] [place] [facility] [address] [id number] [place] [address]- 2803 Sep, [facility] [place] [facility] [address] [id number] [place] [address]- 3468 Sep, [facility] [place] [facility] [address] [id number] [place] [address]- 3854 Sep, [facility] [place] [facility] [address] [id number] [place] [address]- 2412 Sep, [facility] [place] [facility] [address] [id number] [place] [address]- 2802 Sep, [facility] [place] [facility] [address] [id number] [place] [address]- 5301 Sep, [facility] [place] [facility] [address] [id number] [place] [address]- 0557 Aug, [facility] [place] [facility] [address] [id number] [place] [address]- 5855 Aug, [facility] [place] [facility] [address] [id number] [place] [address]- 5285 Aug, [facility] [place] [facility] [address] [id number] [place] [address]- 7631 Aug, [facility] [place] [facility] [address] [id number] [place] [address]- 2808 Aug, [facility] [place] [facility] [address] [id number] [place] [address]- 8447 Aug, [facility] [place] [facility] [address] [id number] [place] [address]- 5886 Jul, [facility] [place] [facility] [address] [id number] [place] [address]- 1359 Jul, [facility] [place] [facility] [address] [id number] [place] [address]- 5822 16 Jul, 2013 [facility] [place] [facility] [address] [id number] [place] [address]- 4264 13 Jul, 2013 [facility] [place] [facility] [address] [id number] [place] [address]- 2812 Jun, [facility] [place] [facility] [address] [id number] [place] [address]- 9049 Jun, [facility] [place] [facility] [address] [id number] [place] [address]- 5697 Jun, [facility] [place] [facility] [address] [id number] [place] [address]- 9446 Jun, [facility] [place] [facility] [address] [id number] [place] [address]- 5489 Jun, [facility] [place] [facility] [address] [id number] [place] [address]- 8284 Jun, [facility] [place] [facility] [address] [id number] [place] [address]- 2585 Jun, [facility] [place] [facility] [address] [id number] [place] [address]- 8024 May, [facility] [place] [facility] [address] [id number] [place] [address]- 6146 May, [facility] [place] [facility] [address] [id number] [place] [address]- 0003 May, [facility] [place] [facility] [address] [id number] [place] [address]- 0309 May, [facility] [place] [facility] [address] [id number] [place] [address]- 1276 May, [facility] [place] [facility] [address] [id number] [place] [address]- 6026 May, [facility] [place] [facility] [address] [id number] [place] [address]- 1291 May, [facility] [place] [facility] [address] [id number] [place] [address]- 1024 Apr, [facility] [place] [facility] [address] [id number] [place] [address]- 3126 Apr, [facility] [place] [facility] [address] [id number] [place] [address]- 6565 Apr, [facility] [place] [facility] [address] [id number] [place] [address]- 7350 Apr, [facility] [place] [facility] [address] [id number] [place] [address]- 8696 Apr, [facility] [place] [facility] [address] [id number] [place] [address]- 0521 18 Apr, 2013 [facility] [address] [id number] [place] [address]- 5719 18 Apr, 2013 [facility] [place] [facility] [address] [id number] [place] [address]- 9285 18 Apr, 2013 [facility] [address] [id number] [place] [address]- 1785 17 Apr, 2013 [facility] [place] [facility] [address] [id number] [place] [address]- 6529 14 Apr, 2013 [facility] [address] [id number] [place] [address]- 4444 14 Apr, 2013 [facility] [place] [facility] [address] [id number] [place] [address]- 4643 11 Apr, 2013 [facility] [place] [facility] [address] [id number] [place] [address]- 4506 10 Apr, 2013 [facility] [place] [facility] [address] [id number] [place] [address]- 6252 09 Apr, 2013 [facility] [place] [facility] [address] [id number] [place] [address]- 1276 07 Apr, 2013 [facility] [place] [facility] [address] [id number] [place] [address]- 1599 06 Apr, 2013 [facility] [place] [facility] [address] [id number] [place] [address]- 9362 06 Apr, 2013 [facility] [place] [facility] [address] [id number] [place] [address]- 0502 05 Apr, 2013 [facility] [place] [facility] [address] [id number] [place] [address]- 6618 03 Apr, 2013 [facility] [place] [facility] [address] [id number] [place] [address]- 9418 March, [facility] [place] [facility] [address] [id number] [place] [address]- 1228 March, [facility] [address] [id number] [place] [address]- 4678 16 Mar, 2013 [facility] [address] [id number] [place] [address]- 9196 March, [facility] [address] [id number] [place] [address]- 3571 March, [facility] [address] [id number] [place] [address]- 1668 March, [facility] [address] [id number] [place] [address]- 5290 March, [facility] [address] [id number] [place] [address]- 9701 Feb, [facility] [address] [id number] [place] [address]- 5169 Feb, [facility] [address] [id number] [place] [address]- 5336 27 Jan, 2013 [facility] [address] [id number] [place] [address]- 9120 18 Jan, 2013 [facility] [address] [id number] [place] [address]- 2739 15 Jan, 2013 [facility] [address] [id number] [place] [address]- 1123 14 Jan, 2013 [facility] [place] [facility] [address] [id number] [address]- 5270 13 Jan, 2013 [facility] [place] [facility] [address] [id number] [place] [address]- 3908 12 Jan, 2013 [facility] [place] [facility] [address] [id number] [place] [address]- 8362 11 Jan, 2013 [facility] [place] [facility] [address] [id number] [place] [address]- 9924 09 Jan, 2013 [facility] [place] [facility] [address] [id number] [place] [address]- 3703 08 Jan, 2013 [facility] [place] [facility] [address] [id number] [place] [address]- 3675 07 Jan, 2013 [facility] [place] [facility] [address] [id number] [place] [address]- 2754 06 Jan, 2013 [facility] [place] [facility] [address] [id number] [place] [address]- 8611 17 Nov, 2012 [facility] [place] [facility] [address] [id number] [place] [address]- 6555 Oct, [facility] [place] [facility] [address] [id number] [place] [address]- 8130 Oct, [facility] [place] [facility] [address] [id number] [place] [address]- 4665 Oct, [facility] [place] [facility] [address] [facility] [id number] [place] [address]- 3158 Oct, [facility] [place] [facility] [address] [id number] [place] [address]- 0968 30 Sep, 2012 [facility] [place] [facility] [address] [facility] [id number] [place] [address]- 1081 30 Sep, 2012 [facility] [place] [facility] [address] [facility] [id number] [place] [address]- 5587 Sep, [facility] [place] [facility] [address] [id number] [place] [address]- 1954 16 Sep, 2012 [facility] [place] [facility] [address] [id number] [place] [address]- 1228 16 Sep, 2012 [facility] [place] [facility] [address] [id number] [place] [address]- 0891 16 Sep, 2012 [facility] [place] [facility] [address] [facility] [id number] [place] [address]- 9185 16 Sep, 2012 [facility] [place] [facility] [address] [facility] [id number] [place] [address]- 9726 09 Sep, 2012 [facility] [place] [facility] [address] [id number] [place] [address]- 8880 Sep, [facility] [place] [facility] [address] [id number] [place] [address]- 0999 Sep, [facility] [place] [facility] [address] [id number] [place] Sep, [facility] [place] [facility] [address] [id number] [place] [address]- 1052 Aug, [facility] [place] [facility] [address] [id number] [place] [address]- 1772 Aug, [facility] [place] [facility] [address] [id number] [place] [address]- 4796 Aug, [facility] [place] [facility] [address] [id number] [place] [address]- 7451 28 Jul, 2012 [facility] [place] [facility] [address] [id number] [place] [address]- 4910 25 Jul, 2012 [facility] [place] [facility] [address] [id number] [place] [address]- 5825 19 Jul, 2012 [facility] [place] [facility] [address] [id number] [place] [address]- 9164 17 Jul, 2012 [facility] [place] [facility] [address] [id number] [place] [address]- 0203 20 Jun, 2012 [facility] [place] [facility] [address] [id number] [place] [address]- 1147 16 Jun, 2012 [facility] [place] [facility] [address] [id number] [place] [address]- 8258 15 Jun, 2012 [facility] [place] [facility] [address] [id number] [place] [address]- 2857 Jun, [facility] [place] [facility] [address] [id number] [place] [address]- 4643 13 Jun, 2012 [facility] [place] [facility] [address] [id number] [place] [address]- 1228 18 Mar, 2012 [facility] [place] [facility] [address] [id number] [place] [address]- 8566 04 Feb, 2012 [facility] [place] [facility] [address] [id number] [place] [address]- 4306 28 Jan, 2012 [facility] [place] [facility] [address] [id number] [place] [address]- 6076 27 Jan, 2012 [facility] [place] [facility] [address] [id number] [place] [address]- 7577 22 Jan, 2012 [facility] [place] [facility] [address] [id number] [place] [address]- 2482 14 Jan, 2012 [facility] [place] [facility] [address] [id number] [place] [address]- 8806 14 Jan, 2012 [facility] [place] [facility] [address] [facility] [id number] [place] [address]- 2004 14 Jan, 2012 [facility] [place] [facility] [address] [id number] [place] [address]- 4457 28 Dec, 2011 [facility] [place] [facility] [address] [facility] [id number] [place] [address]- 2410 27 Dec, 2011 [facility] [place] [facility] [address] [facility] [id number] [place] [address]- 5761 23 Dec, 2011 [facility] [place] [facility] [address] [id number] [place] [address]- 1906 21 Dec, 2011 [facility] [place] [facility] [address] [id number] [place] [address]- 0573 20 Dec, 2011 [facility] [place] [facility] [address] [id number] [place] [address]- 4616 19 Dec, 2011 [facility] [place] [facility] [address] [facility] [id number] [place] [address]- 6816 17 Dec, 2011 [facility] [place] [facility] [address] [facility] [id number] [place] [address]- 6206 16 Dec, 2011 [facility] [place] [facility] [address] [id number] [address] Nov, [facility] [address] [id number] [address] 8765 Oct, [facility] [address] [facility] [id number] [address] 2366 Sep, [facility] [id number] [address] 1182 Sep, [facility] [id number] [address] 6707 Sep, [facility] [id number] [address] 6664 Sep, [facility] [id number] [address] 5268 Sep, [facility] [id number] [address]- 1003 Sep, [facility] [address] [id number] [address]- 7314 Jan, [facility] [id number] [address]- 4543 Apr, IMMUNIZATIONS No Known Immunizations SOCIAL HISTORY Never Assessed REASON FOR VISIT f/dejan Lazaro RN PLAN OF CARE Activity Details Follow Up 3 Months Reason: Follow-up VITAL SIGNS Height 66 in 2018-07-18 Weight 155 lbs 2018-07-18 Heart Rate 90 bpm 2018-07-18 Respiratory Rate 18 2018-07-18 BMI 25.01 kg/m2 2018-07-18 Blood pressure systolic 108 mmHg 2018-07-18 Blood pressure diastolic 60 mmHg 2018-07-18 MEDICATIONS Medication Instructions Dosage Frequency Start Date End Date Duration Status Klonopin 0.5 MG Orally 4 times a day as needed 1 tablet 30 days Active Lamictal 200 mg Orally Once a day 1 tablet 24h Active Abilify 10 MG Orally Once a day 1 tablet 24h Active Remeron 45 MG Orally Once a [...] History 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
[2019-03-04] MEDS ORDERED: TRAM-42 PO (16:49)
[2019-03-04 16:58] VITALS: BP 106/68
--- OUTSIDE RECORDS SUMMARY | 2019-03-04 17:29 | XMS REPORT | Continuity of Care Document ---
Author Organization Unknown Address Unknown Allergies Active Description Code Type Severity Reaction [...] Drug Allergy N/A N/A 05/09/2013 Yes Penicillins [id number] Drug Allergy Mild PT ABLE TO TAKE 03/26/2014 Yes Depakote 250 mg tablet,delayed release (DR/EC) Drug Allergy N/A N/A 12/18 Yes diclofenac [id number] Drug Allergy Unknown N/A 01/21/2015 Yes divalproex sodium [id number] Drug Allergy Unknown N/A 08/26/2015 Medications There [...] DO NICOLA K 296.90 Mood Disorder 06/20/2008 GARJASON RENTERIA APRN D 296.90 Mood Disorder 06/20/2008 WOLF JAMA MD 296.90 Mood Disorder 06/20/2008 MANUEL DO, NICOLA K 296.90 Mood Disorder 06/20/2008 IDALIA BAKER, KELY J 296.90 Mood Disorder 06/20/2008 GARTON THIOKOL OPERATORJASON Kirkpatrick D 296.90 Mood Disorder 06/20/2008 GARMYRA THIOKOL OPERATORKEITH KirkpatrickTH D 296.90 Mood Disorder 06/20/2008 GARTON THIOKOL OPERATOR, JASON D 296.90 Mood Disorder 06/20/2008 WOLF JAMA MD 296.90 Mood Disorder 06/20/2008 ROEL THIOKOL OPERATOR, GODWIN 296.90 Mood Disorder 06/20/2008 MADL THIOKOL OPERATOR, FLO L 296.90 Mood Disorder 06/20/2008 ROEL THIOKOL OPERATOR, GODWIN 296.90 Mood Disorder 06/20/2008 MADL THIOKOL OPERATOR, FLO L 296.90 Mood Disorder 06/20/2008 ROEL THIOKOL OPERATOR, GODWIN 296.90 Mood Disorder 06/20/2008 ROEL THIOKOL OPERATOR, GODWIN 296.90 Mood Disorder 06/20/2008 MADL THIOKOL OPERATOR, FLO L 296.90 Mood Disorder 06/20/2008 MADL THIOKOL OPERATOR, FLO L 296.90 Mood Disorder 06/20/2008 ROEL THIOKOL OPERATOR, GODWIN 296.90 Mood Disorder 06/20/2008 SONNY THIOKOL OPERATOR, ELIAS A 296.90 Mood Disorder 06/20/2008 [facility], DEMOND R 296.90 Mood Disorder 06/20/2008 MADL THIOKOL OPERATOR, FLO L 296.90 Mood Disorder 06/20/2008 JOSE SILVERIO DDS 296.90 Mood Disorder 06/20/2008 [facility], DEMOND R 296.90 Mood Disorder 06/20/2008 [facility] 296.90 Mood Disorder 06/20/2008 ROEL THIOKOL OPERATOR, GODWIN 296.90 Mood Disorder 06/20/2008 MANUEL DO, NICOLA K 296.90 Mood Disorder 06/20/2008 ROEL THIOKOL OPERATOR, GODWIN 296.90 Mood Disorder 06/20/2008 ROEL THIOKOL OPERATOR, GODWIN 296.90 Mood Disorder 10/03/2008 WOLF JAMA MD 465.9 Upper Respiratory Infection 10/03/2008 WOLF JAMA MD 465.9 Upper Respiratory Infection 10/03/2008 465.9 Upper Respiratory Infection 10/03/2008 MAR BLANTON NIOCLA K 465.9 Upper Respiratory Infection 10/03/2008 JASON [...] Infection 10/03/2008 465.9 Upper Respiratory Infection 10/03/2008 MANUEL MARAL BLANTONA K 465.9 Upper Respiratory Infection 10/03/2008 JASON [...] MENG GODWIN 465.9 Upper Respiratory Infection 10/03/2008 MADTima THIOKOL OPERATOR, FLO L 465.9 Upper Respiratory Infection 10/03/2008 ROEL THIOKOL OPERATOR GODWIN 465.9 Upper Respiratory Infection 10/03/2008 MADL THIOKOL OPERATOR, FLO L 465.9 Upper Respiratory Infection 10/03/2008 ROEL THIOKOL OPERATOR, GODWIN 465.9 Upper Respiratory Infection 10/03/2008 ROEL TAQUERIA, GODWIN 465.9 Upper Respiratory Infection 10/03/2008 MADL THIOKOL OPERATOR, FLO L 465.9 Upper Respiratory Infection 10/03/2008 MADL THIOKOL OPERATOR, FLO L 465.9 Upper Respiratory Infection 10/03/2008 ROEL THIOKOL OPERATOR, GODWIN 465.9 Upper Respiratory Infection 10/03/2008 SONNY THIOKOL OPERATOR, ELIAS A 465.9 Upper Respiratory Infection 10/03/2008 [facility], DEMOND R 465.9 Upper Respiratory Infection 10/03/2008 MADL THIOKOL OPERATOR, FLO L 465.9 Upper Respiratory Infection 10/03/2008 SILVERIO DDS, JOSE 465.9 Upper Respiratory Infection 10/03/2008 [facility], DEMOND R 465.9 Upper Respiratory Infection 10/03/2008 [facility], DEMOND R 465.9 Upper Respiratory Infection 10/03/2008 ROEL THIOKOL OPERATOR, GODWIN 465.9 Upper Respiratory Infection 10/03/2008 NICOLA MANUEL DO 465.9 Upper Respiratory Infection 10/03/2008 ROEL THIOKOL OPERATOR, GODWIN 465.9 Upper Respiratory Infection 10/03/2008 ROEL THIOKOL OPERATOR, GODWIN 465.9 Upper Respiratory Infection 11/27/2008 WOLF [...] MD V58.69 Medication High Risk 11/27/2008 MANUEL DONICOLA K V58.69 Medication High Risk 11/27/2008 WHITE DDS, KELY J V58.69 Medication High Risk 11/27/2008 GARMYRA THIOKOL OPERATORJASON Kirkpatrick V58.69 Medication High Risk 11/27/2008 DALE THIOKOL OPERATORJASON Kirkpatrick V58.69 Medication High Risk 11/27/2008 JASON HUNTER APRN V58.69 Medication High Risk 11/27/2008 WOLF JAMA MD V58.69 Medication High Risk 11/27/2008 ROEL THIOKOL OPERATOR, GODWIN V58.69 Medication High Risk 11/27/2008 MADL THIOKOL OPERATOR, FLO L V58.69 Medication High Risk 11/27/2008 ROEL THIOKOL OPERATOR, GODWIN V58.69 Medication High Risk 11/27/2008 MADL THIOKOL OPERATOR, FLO L V58.69 Medication High Risk 11/27/2008 ROEL THIOKOL OPERATOR, GODWIN V58.69 Medication High Risk 11/27/2008 ROEL THIOKOL OPERATOR, GODWIN V58.69 Medication High Risk 11/27/2008 MADL THIOKOL OPERATOR, FLO L V58.69 Medication High Risk 11/27/2008 MADL THIOKOL OPERATOR, FLO L V58.69 Medication High Risk 11/27/2008 ROEL THIOKOL OPERATOR, GODWIN V58.69 Medication High Risk 11/27/2008 SONNY MENG, ELIAS A V58.69 Medication High Risk 11/27/2008 [facility], DEMOND R V58.69 Medication High Risk 11/27/2008 MADL THIOKOL OPERATOR, FLO L V58.69 Medication High Risk 11/27/2008 SILVERIO DDSSALVADORW V58.69 Medication High Risk 11/27/2008 [facility], DEMOND R V58.69 Medication High Risk 11/27/2008 [facility], DEMOND R V58.69 Medication High Risk 11/27/2008 ROEL THIOKOL OPERATOR, GODWIN V58.69 Medication High Risk 11/27/2008 MANUEL DOMARALA K V58.69 Medication High Risk 11/27/2008 ROEL THIOKOL OPERATOR, GODWIN V58.69 Medication High Risk 11/27/2008 ROEL THIOKOL OPERATOR, GODWIN V58.69 Medication High Risk 07/01/2009 WOLF [...] UNSPEC 07/01/2009 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..] JAMA MD 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 07/01/2009 ROEL THIOKOL OPERATOR, GODWIN 296.32 MO DEPRESSIVE RECURRENT MODERATE 07/01/2009 ROEL THIOKOL OPERATOR, GODWIN 300.00 AN ANXIETY UNSPEC 07/01/2009 ROEL THIOKOL OPERATOR, GODWIN 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 07/01/2009 MADL THIOKOL OPERATOR, FLO L 296.32 MO DEPRESSIVE RECURRENT MODERATE 07/01/2009 MADL THIOKOL OPERATOR, FLO L 300.00 AN ANXIETY UNSPEC 07/01/2009 MADL THIOKOL OPERATOR, FLO L 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 07/01/2009 ROEL THIOKOL OPERATOR, GODWIN 296.32 MO DEPRESSIVE RECURRENT MODERATE 07/01/2009 ROEL THIOKOL OPERATOR, GODWIN 300.00 AN ANXIETY UNSPEC 07/01/2009 ROEL THIOKOL OPERATOR, GODWIN 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 07/01/2009 MADL THIOKOL OPERATOR, FLO L 296.32 MO DEPRESSIVE RECURRENT MODERATE 07/01/2009 MADL THIOKOL OPERATOR, FLO L 300.00 AN ANXIETY UNSPEC 07/01/2009 MADL THIOKOL OPERATOR, FLO L 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 07/01/2009 ROEL THIOKOL OPERATOR, GODWIN 296.32 MO DEPRESSIVE RECURRENT MODERATE 07/01/2009 ROEL THIOKOL OPERATOR, GODWIN 300.00 AN ANXIETY UNSPEC 07/01/2009 ROEL THIOKOL OPERATOR, GODWIN 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 07/01/2009 ROEL THIOKOL OPERATOR, GODWIN 296.32 MO DEPRESSIVE RECURRENT MODERATE 07/01/2009 ROEL THIOKOL OPERATOR, GODWIN 300.00 AN ANXIETY UNSPEC 07/01/2009 ROEL THIOKOL OPERATOR, GODWIN 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 07/01/2009 MADL THIOKOL OPERATOR, FLO L 296.32 MO DEPRESSIVE RECURRENT MODERATE 07/01/2009 MADL THIOKOL OPERATOR, FLO L 300.00 AN ANXIETY UNSPEC 07/01/2009 ROSITA GONZALEZ APRNA L 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 07/01/2009 ROSITA GONZALEZ APRNA L 296.32 MO DEPRESSIVE RECURRENT MODERATE 07/01/2009 EARNESTINE GONZALEZ APRNNYA L 300.00 AN ANXIETY UNSPEC 07/01/2009 ROSITA GONZALEZ APRNA L 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 07/01/2009 ROEL THIOKOL OPERATOR, GODWIN 296.32 MO DEPRESSIVE RECURRENT MODERATE 07/01/2009 ROEL THIOKOL OPERATOR, GODWIN 300.00 AN ANXIETY UNSPEC 07/01/2009 ROEL THIOKOL OPERATOR, GODWIN 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 07/01/2009 SONNY APRN, ELIAS A 296.32 MO DEPRESSIVE RECURRENT MODERATE 07/01/2009 SONNY APRN, ELIAS A 300.00 AN ANXIETY UNSPEC 07/01/2009 SONNY MENG, ELIAS A 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 07/01/2009 [facility], DEMOND R 296.32 MO DEPRESSIVE RECURRENT MODERATE 07/01/2009 [facility], DEMOND R 300.00 AN ANXIETY UNSPEC 07/01/2009 [facility], DEMOND R 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 07/01/2009 FLO GONZALEZ APRN L 296.32 MO DEPRESSIVE RECURRENT MODERATE 07/01/2009 FLO GONZALEZ APRN L 300.00 AN ANXIETY UNSPEC 07/01/2009 ROSITA GONZALEZ APRNA L 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 07/01/2009 SILVERIO DDS, JOSE 296.32 MO DEPRESSIVE RECURRENT MODERATE 07/01/2009 SILVERIO DDS, JOSE 300.00 AN ANXIETY UNSPEC 07/01/2009 SILVERIO DDS, JOSE 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 07/01/2009 [facility], DEMOND R 296.32 MO DEPRESSIVE RECURRENT MODERATE 07/01/2009 [facility], DEMOND R 300.00 AN ANXIETY UNSPEC 07/01/2009 [facility], DEMOND R 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 07/01/2009 [facility], DEMODN R 296.32 MO DEPRESSIVE RECURRENT MODERATE 07/01/2009 [facility], DEMOND R 300.00 AN ANXIETY UNSPEC 07/01/2009 [facility], DEMOND R 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 07/01/2009 ROEL THIOKOL OPERATOR, GODWIN 296.32 MO DEPRESSIVE RECURRENT MODERATE 07/01/2009 ROEL THIOKOL OPERATOR, GODWIN 300.00 AN ANXIETY UNSPEC 07/01/2009 ROEL THIOKOL OPERATOR, GODWIN 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 07/01/2009 NICOLA MANUEL DO K 296.32 MO DEPRESSIVE RECURRENT MODERATE 07/01/2009 NICOLA MANUEL DO K 300.00 AN ANXIETY UNSPEC 07/01/2009 NICOLA MANUEL DO K 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 07/01/2009 ROEL THIOKOL OPERATOR, GODWIN 296.32 MO DEPRESSIVE RECURRENT MODERATE 07/01/2009 ROEL THIOKOL OPERATOR, GODWIN 300.00 AN ANXIETY UNSPEC 07/01/2009 ROEL THIOKOL OPERATOR, GODWIN 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 07/01/2009 ROEL THIOKOL OPERATOR, GODWIN 296.32 MO DEPRESSIVE RECURRENT MODERATE 07/01/2009 ROEL THIOKOL OPERATOR, GODWIN 300.00 AN ANXIETY UNSPEC 07/01/2009 ROEL THIOKOL OPERATOR, GODWIN 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 07/16/2009 WOLF JAMA [...] 300.01 AN PANIC DIS W/O AGORA 07/16/2009 GARJASON RENTERIA APRN 300.01 AN PANIC DIS W/O AGORA 07/16/2009 JASON HUNTER APRN 300.01 AN PANIC DIS W/O AGORA 07/16/2009 JASON HUNTER APRN 300.01 AN PANIC DIS W/O AGORA 07/16/2009 WOLF JAMA MD 300.01 AN PANIC DIS W/O AGORA 07/16/2009 ROEL MICHAEL MENGETTE 300.01 AN PANIC DIS W/O AGORA 07/16/2009 MADL THIOKOL OPERATOR, FLO L 300.01 AN PANIC DIS W/O AGORA 07/16/2009 ROEL THIOKOL OPERATOR, GODWIN 300.01 AN PANIC DIS W/O AGORA 07/16/2009 MADL THIOKOL OPERATOR, FLO L 300.01 AN PANIC DIS W/O AGORA 07/16/2009 ROEL THIOKOL OPERATOR, GODWIN 300.01 AN PANIC DIS W/O AGORA 07/16/2009 ROEL THIOKOL OPERATOR, GODWIN 300.01 AN PANIC DIS W/O AGORA 07/16/2009 MADL THIOKOL OPERATOR FLO L 300.01 AN PANIC DIS W/O AGORA 07/16/2009 MADL THIOKOL OPERATOR, FLO L 300.01 AN PANIC DIS W/O AGORA 07/16/2009 ROEL THIOKOL OPERATOR, GODWIN 300.01 AN PANIC DIS W/O AGORA 07/16/2009 SONNY MENG ELIAS A 300.01 AN PANIC DIS W/O AGORA 07/16/2009 ANGELA [facility], DEMOND R 300.01 AN PANIC DIS W/O AGORA 07/16/2009 MADL THIOKOL OPERATORROSITA KirkpatrickA L 300.01 AN PANIC DIS W/O AGORA 07/16/2009 NUSRAT BAKER, JOSE 300.01 AN PANIC DIS W/O AGORA 07/16/2009 [facility], DEMOND R 300.01 AN PANIC DIS W/O AGORA 07/16/2009 [facility], DEMOND R 300.01 AN PANIC DIS W/O AGORA 07/16/2009 ROEL THIOKOL OPERATOR, GODWIN 300.01 AN PANIC DIS W/O AGORA 07/16/2009 NICOLA MANUEL DO 300.01 AN PANIC DIS W/O AGORA 07/16/2009 ROEL THIOKOL OPERATOR, GODWIN 300.01 AN PANIC DIS W/O AGORA 07/16/2009 ROEL THIOKOL OPERATOR, GODWIN 300.01 AN PANIC DIS W/O AGORA [...] FRIEDMAN DDS 307.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 07/25/2009 GARTON THIOKOL OPERATORJASON Kirkpatrick 307.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 07/25/2009 GARTON THIOKOL OPERATOR, JASON Steel 307.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 07/25/2009 GARTON THIOKOL OPERATOR, JASON Steel 307.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 07/25/2009 WOLF JAAM MD 307.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 07/25/2009 ROEL THIOKOL OPERATOR, GODWIN 307.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 07/25/2009 MADL THIOKOL OPERATOR, FLO L 307.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 07/25/2009 ROEL THIOKOL OPERATOR, GODWIN 307.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 07/25/2009 MADL THIOKOL OPERATOR, FLO L 307.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 07/25/2009 ROEL THIOKOL OPERATOR, GODWIN 307.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 07/25/2009 ROEL THIOKOL OPERATOR, GODWIN 307.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 07/25/2009 MADL THIOKOL OPERATOR, FLO L 307.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 07/25/2009 MADL THIOKOL OPERATOR, FLO L 307.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 07/25/2009 ROEL THIOKOL OPERATOR, GODWIN 307.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 07/25/2009 SONNY THIOKOL OPERATOR, ELIAS A 307.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 07/25/2009 [facility], DEMOND R 307.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 07/25/2009 MADL THIOKOL OPERATOR, FLO L 307.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 07/25/2009 NUSRAT JENKINSS, JOSE 307.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 07/25/2009 [facility], DEMOND R 307.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 07/25/2009 [facility], DEMOND R 307.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 07/25/2009 ROEL THIOKOL OPERATOR, GODWIN 307.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 07/25/2009 NICOLA MANUEL DO 307.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 07/25/2009 ROEL THIOKOL OPERATOR, GODWIN 307.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 07/25/2009 ROEL THIOKOL OPERATOR, GODWIN 307.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 12/17/2009 WOLF JAMA MD 311 DEPRESSIVE DISORDER NOS 12/17/2009 WOLF JAMA MD 311 DEPRESSIVE DISORDER NOS 12/17/2009 311 DEPRESSIVE DISORDER NOS 12/17/2009 MANUEL DO, NICOLA K 311 DEPRESSIVE DISORDER NOS 12/17/2009 JASON SOLANO DO 311 DEPRESSIVE DISORDER NOS 12/17/2009 311 DEPRESSIVE DISORDER NOS 12/17/2009 311 DEPRESSIVE DISORDER NOS 12/17/2009 311 DEPRESSIVE DISORDER NOS 12/17/2009 311 DEPRESSIVE DISORDER NOS 12/17/2009 311 DEPRESSIVE DISORDER NOS 12/17/2009 311 DEPRESSIVE DISORDER NOS 12/17/2009 311 DEPRESSIVE DISORDER NOS 12/17/2009 311 DEPRESSIVE DISORDER NOS 12/17/2009 311 DEPRESSIVE DISORDER NOS 12/17/2009 311 DEPRESSIVE DISORDER NOS 12/17/2009 311 DEPRESSIVE DISORDER NOS 12/17/2009 MANUEL DO, NICOLA K 311 DEPRESSIVE DISORDER NOS 12/17/2009 [...] HUNTER APRN 311 DEPRESSIVE DISORDER NOS 12/17/2009 OWLF JAMA MD 311 DEPRESSIVE DISORDER NOS 12/17/2009 ROEL THIOKOL OPERATOR, GODWIN 311 DEPRESSIVE DISORDER NOS 12/17/2009 MADL THIOKOL OPERATOR, FLO L 311 DEPRESSIVE DISORDER NOS 12/17/2009 ROEL THIOKOL OPERATOR, GODWIN 311 DEPRESSIVE DISORDER NOS 12/17/2009 MADL THIOKOL OPERATOR, FLO L 311 DEPRESSIVE DISORDER NOS 12/17/2009 ROEL THIOKOL OPERATOR, GODWIN 311 DEPRESSIVE DISORDER NOS 12/17/2009 ROEL THIOKOL OPERATOR, GODWIN 311 DEPRESSIVE DISORDER NOS 12/17/2009 MADL THIOKOL OPERATOR, FLO L 311 DEPRESSIVE DISORDER NOS 12/17/2009 MADL THIOKOL OPERATOR, FLO L 311 DEPRESSIVE DISORDER NOS 12/17/2009 ROEL THIOKOL OPERATOR, GODWIN 311 DEPRESSIVE DISORDER NOS 12/17/2009 SONNY THIOKOL OPERATOR, ELIAS A 311 DEPRESSIVE DISORDER NOS 12/17/2009 [facility], DEMOND R 311 DEPRESSIVE DISORDER NOS 12/17/2009 LISA THIOKOL OPERATOR, FLO Alfred 311 DEPRESSIVE DISORDER NOS 12/17/2009 JOSE SILVERIO DDS 311 DEPRESSIVE DISORDER NOS 12/17/2009 [facility], DEMOND R 311 DEPRESSIVE DISORDER NOS 12/17/2009 [facility], DEMOND R 311 DEPRESSIVE DISORDER NOS 12/17/2009 ROEL THIOKOL OPERATOR, GODWIN 311 DEPRESSIVE DISORDER NOS 12/17/2009 NICOLA MANUEL DO 311 DEPRESSIVE DISORDER NOS 12/17/2009 ROEL THIOKOL OPERATOR, GODWIN 311 DEPRESSIVE DISORDER NOS 12/17/2009 ROEL THIOKOL OPERATOR, GODWIN 311 DEPRESSIVE DISORDER NOS 05/06/2010 Ot 620.2 05/06/2010 Ot 789.04 05/13/2010 WOLF JAMA MD V72.31 Sheet Metal Fabricator Exam, Routine 05/13/2010 WOLF JAMA MD V72.31 Sheet Metal Fabricator Exam, Routine 05/13/2010 V72.31 Sheet Metal Fabricator Exam, Routine 05/13/2010 NICOLA MANUEL DO V72.31 Sheet Metal Fabricator Exam, Routine 05/13/2010 JASON SOLANO DO V72.31 Sheet Metal Fabricator Exam, Routine 05/13/2010 V72.31 Sheet Metal Fabricator Exam, Routine 05/13/2010 V72.31 Sheet Metal Fabricator Exam, Routine 05/13/2010 V72.31 Sheet Metal Fabricator Exam, Routine 05/13/2010 V72.31 Sheet Metal Fabricator Exam, Routine 05/13/2010 V72.31 Sheet Metal Fabricator Exam, Routine 05/13/2010 V72.31 Sheet Metal Fabricator Exam, Routine 05/13/2010 V72.31 Sheet Metal Fabricator Exam, Routine 05/13/2010 V72.31 Sheet Metal Fabricator Exam, Routine 05/13/2010 V72.31 Sheet Metal Fabricator Exam, Routine 05/13/2010 V72.31 Sheet Metal Fabricator Exam, Routine 05/13/2010 V72.31 Sheet Metal Fabricator Exam, Routine 05/13/2010 NICOLA MANUEL DO V72.31 Sheet Metal Fabricator Exam, Routine 05/13/2010 JASON HUNTER APRN V72.31 Sheet Metal Fabricator Exam, Routine 05/13/2010 WOLF JAMA MD V72.31 Sheet Metal Fabricator Exam, Routine 05/13/2010 NICOLA MANUEL DO V72.31 Sheet Metal Fabricator Exam, Routine 05/13/2010 IDALIA BAKER, KELY Dickens V72.31 Sheet Metal Fabricator Exam, Routine 05/13/2010 JASON HUNTER APRN V72.31 Sheet Metal Fabricator Exam, Routine 05/13/2010 JASON HUNTER APRN V72.31 Sheet Metal Fabricator Exam, Routine 05/13/2010 JASON HUNTER APRN V72.31 Sheet Metal Fabricator Exam, Routine 05/13/2010 WOLF JAMA MD V72.31 Sheet Metal Fabricator Exam, Routine 05/13/2010 ROEL THIOKOL OPERATOR, GODWIN V72.31 Sheet Metal Fabricator Exam, Routine 05/13/2010 MADL THIOKOL OPERATOR, FLO L V72.31 Sheet Metal Fabricator Exam, Routine 05/13/2010 ROEL THIOKOL OPERATOR, GODWIN V72.31 Sheet Metal Fabricator Exam, Routine 05/13/2010 MADL THIOKOL OPERATOR, FLO L V72.31 Sheet Metal Fabricator Exam, Routine 05/13/2010 ROEL THIOKOL OPERATOR, GODWIN V72.31 Sheet Metal Fabricator Exam, Routine 05/13/2010 ROEL THIOKOL OPERATOR, GODWIN V72.31 Sheet Metal Fabricator Exam, Routine 05/13/2010 MADL THIOKOL OPERATOR, FLO L V72.31 Sheet Metal Fabricator Exam, Routine 05/13/2010 MADL THIOKOL OPERATOR, FLO L V72.31 Sheet Metal Fabricator Exam, Routine 05/13/2010 ROEL THIOKOL OPERATOR, GODWIN V72.31 Sheet Metal Fabricator Exam, Routine 05/13/2010 SONNY MENG, ELIAS A V72.31 Sheet Metal Fabricator Exam, Routine 05/13/2010 [facility], DEMOND R V72.31 Sheet Metal Fabricator Exam, Routine 05/13/2010 MADL THIOKOL OPERATOR, FLO L V72.31 Sheet Metal Fabricator Exam, Routine 05/13/2010 JOSE SILVERIO DDS V72.31 Sheet Metal Fabricator Exam, Routine 05/13/2010 [facility], DEMOND R V72.31 Sheet Metal Fabricator Exam, Routine 05/13/2010 [facility], DEMOND R V72.31 Sheet Metal Fabricator Exam, Routine 05/13/2010 ROEL THIOKOL OPERATOR, GODWIN V72.31 Sheet Metal Fabricator Exam, Routine 05/13/2010 NICOLA MANUEL DO V72.31 Sheet Metal Fabricator Exam, Routine 05/13/2010 ROEL THIOKOL OPERATOR, GODWIN V72.31 Sheet Metal Fabricator Exam, Routine 05/13/2010 ROEL THIOKOL OPERATOR, GODWIN V72.31 Sheet Metal Fabricator Exam, Routine 05/26/2010 Ot 526.9 05/26/2010 Ot [...] 276.8 Hypopotassemia 09/29/2011 276.8 Hypopotassemia 09/29/2011 MANUEL DONICOLA K 276.8 Hypopotassemia 09/29/2011 JASON HUNTER APRN 276.8 Hypopotassemia 09/29/2011 WOLF JAMA MD 276.8 Hypopotassemia 09/29/2011 MANUEL NICOLA K 276.8 Hypopotassemia 09/29/2011 IDALIA BAKER, KELY J 276.8 Hypopotassemia 09/29/2011 JASON HUNTER APRN 276.8 Hypopotassemia 09/29/2011 JASON HUNTER APRN 276.8 Hypopotassemia 09/29/2011 JASON HUNTER APRN D 276.8 Hypopotassemia 09/29/2011 WOLF JAMA MD 276.8 Hypopotassemia 09/29/2011 ROEL THIOKOL OPERATOR, GODWIN 276.8 Hypopotassemia 09/29/2011 LISA THIOKOL OPERATOR, FLO L 276.8 Hypopotassemia 09/29/2011 ROEL THIOKOL OPERATOR, GODWIN 276.8 Hypopotassemia 09/29/2011 LISA THIOKOL OPERATOR, FLO L 276.8 Hypopotassemia 09/29/2011 ROEL THIOKOL OPERATOR, GODWIN 276.8 Hypopotassemia 09/29/2011 ROEL THIOKOL OPERATOR, GODWIN 276.8 Hypopotassemia 09/29/2011 LISA THIOKOL OPERATOR, FLO L 276.8 Hypopotassemia 09/29/2011 LISA MENG, FLO L 276.8 Hypopotassemia 09/29/2011 ROEL THIOKOL OPERATOR, GODWIN 276.8 Hypopotassemia 09/29/2011 SONNY THIOKOL OPERATOR, ELIAS A 276.8 Hypopotassemia 09/29/2011 [facility], DEMOND R 276.8 Hypopotassemia 09/29/2011 LISA THIOKOL OPERATOR, FLO Alfred 276.8 Hypopotassemia 09/29/2011 NUSRAT DDS, JOSE 276.8 Hypopotassemia 09/29/2011 [facility], DEMOND R 276.8 Hypopotassemia 09/29/2011 [facility], DEMOND R 276.8 Hypopotassemia 09/29/2011 ROEL THIOKOL OPERATOR, GODWIN 276.8 Hypopotassemia 09/29/2011 NICOLA MANUEL DO 276.8 Hypopotassemia 09/29/2011 ROEL THIOKOL OPERATOR, GODWIN 276.8 Hypopotassemia 09/29/2011 ROEL THIOKOL OPERATOR, GODWIN 276.8 Hypopotassemia 12/13/2011 WOLF JAMA MD [...] Unspecified Disease Of The Jaws 12/13/2011 IDALIA DDS, KELY Dickens 526.9 Unspecified Disease Of The Jaws 12/13/2011 GARTON THIOKOL OPERATORJASON Kirkpatrick 526.9 Unspecified Disease Of The Jaws 12/13/2011 GARTON THIOKOL OPERATORJASON Kirkpatrick 526.9 Unspecified Disease Of The Jaws 12/13/2011 JASON HUNTER APRN 526.9 Unspecified Disease Of The Jaws 12/13/2011 WOLF JAMA MD 526.9 Unspecified Disease Of The Jaws 12/13/2011 ROEL THIOKOL OPERATOR, GODWIN 526.9 Unspecified Disease Of The Jaws 12/13/2011 MADL THIOKOL OPERATOR, FLO L 526.9 Unspecified Disease Of The Jaws 12/13/2011 ROEL THIOKOL OPERATOR, GODWIN 526.9 Unspecified Disease Of The Jaws 12/13/2011 MADL THIOKOL OPERATOR, FLO L 526.9 Unspecified Disease Of The Jaws 12/13/2011 ROEL THIOKOL OPERATOR, GODWIN 526.9 Unspecified Disease Of The Jaws 12/13/2011 ROEL THIOKOL OPERATOR, GODWIN 526.9 Unspecified Disease Of The Jaws 12/13/2011 MADL THIOKOL OPERATOR, FLO L 526.9 Unspecified Disease Of The Jaws 12/13/2011 MADL THIOKOL OPERATOR, FLO L 526.9 Unspecified Disease Of The Jaws 12/13/2011 ROEL THIOKOL OPERATOR, GODWIN 526.9 Unspecified Disease Of The Jaws 12/13/2011 ELIAS DENNIS APRN 526.9 Unspecified Disease Of The Jaws 12/13/2011 ANGELA [facility], DEMOND R 526.9 Unspecified Disease Of The Jaws 12/13/2011 MADL THIOKOL OPERATOR, FLO L 526.9 Unspecified Disease Of The Jaws 12/13/2011 NUSRAT BAKER, JOSE 526.9 Unspecified Disease Of The Jaws 12/13/2011 [facility], DEMOND R 526.9 Unspecified Disease Of The Jaws 12/13/2011 [facility], DEMOND R 526.9 Unspecified Disease Of The [place]aws 12/13/2011 ROEL THIOKOL OPERATOR, GODWIN 526.9 Unspecified Disease Of The Jaws 12/13/2011 NICOLA MANUEL DO 526.9 Unspecified Disease Of The Jaws 12/13/2011 ROEL THIOKOL OPERATOR, GODWIN 526.9 Unspecified Disease Of The Jaws 12/13/2011 ROEL THIOKOL OPERATOR, GODWIN 526.9 Unspecified Disease Of The Jaws [...] Cervical Cancer Screening (pap Smear) 12/29/2011 IDALIA DDSKELY J 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 12/29/2011 WHITE DDSKELY J 427.89 Other Specified Cardiac Dysrhythmias 12/29/2011 WHITE DDSJASMINON J V25.9 Contraception Management 12/29/2011 WHITE DDS, KELY J V76.2 Cervical Cancer Screening (pap Smear) 12/29/2011 JASON HUNTER APRN D 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 12/29/2011 JASON HUNTER APRN D 427.89 Other Specified Cardiac Dysrhythmias 12/29/2011 ASHLEY HUNTER APRNBETH D V25.9 Contraception Management 12/29/2011 JASON HUNTER [...] 427.89 Other Specified Cardiac Dysrhythmias 12/29/2011 MADL THIOKOL OPERATOR, FLO L V25.9 Contraception Management 12/29/2011 MADL THIOKOL OPERATOR, FLO L V76.2 Cervical Cancer Screening (pap Smear) 12/29/2011 ROEL THIOKOL OPERATOR, GODWIN 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 12/29/2011 ROEL THIOKOL OPERATOR, GODWIN 427.89 Other Specified Cardiac Dysrhythmias 12/29/2011 ROEL THIOKOL OPERATOR, GODWIN V25.9 Contraception Management 12/29/2011 ROEL THIOKOL OPERATOR, GODWIN V76.2 Cervical Cancer Screening (pap Smear) 12/29/2011 MADL THIOKOL OPERATOR, FLO L 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 12/29/2011 MADL THIOKOL OPERATOR, FLO L 427.89 Other Specified Cardiac Dysrhythmias 12/29/2011 MADL THIOKOL OPERATOR, FLO L V25.9 Contraception Management 12/29/2011 MADL THIOKOL OPERATOR, FLO L V76.2 Cervical Cancer Screening (pap Smear) 12/29/2011 ROEL THIOKOL OPERATOR, GODWIN 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 12/29/2011 ROEL THIOKOL OPERATOR, GODWIN 427.89 Other Specified Cardiac Dysrhythmias 12/29/2011 ROEL THIOKOL OPERATOR, GODWIN V25.9 Contraception Management 12/29/2011 ROEL THIOKOL OPERATOR, GODWIN V76.2 Cervical Cancer Screening (pap Smear) 12/29/2011 ROEL THIOKOL OPERATOR, GODWIN 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 12/29/2011 ROEL THIOKOL OPERATOR, GODWIN 427.89 Other Specified Cardiac Dysrhythmias 12/29/2011 ROEL THIOKOL OPERATOR, GODWIN V25.9 Contraception Management 12/29/2011 ROEL THIOKOL OPERATOR, GODWIN V76.2 Cervical Cancer Screening (pap Smear) 12/29/2011 MADL THIOKOL OPERATOR, FLO L 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 12/29/2011 MADL THIOKOL OPERATOR, FLO L 427.89 Other Specified Cardiac Dysrhythmias 12/29/2011 MADL THIOKOL OPERATOR, FLO L V25.9 Contraception Management 12/29/2011 MADL THIOKOL OPERATOR, FLO L V76.2 Cervical Cancer Screening (pap Smear) 12/29/2011 MADL THIOKOL OPERATOR, FLO L 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 12/29/2011 MADL THIOKOL OPERATOR, FLO L 427.89 Other Specified Cardiac Dysrhythmias 12/29/2011 MADL THIOKOL OPERATOR, FLO L V25.9 Contraception Management 12/29/2011 MADL THIOKOL OPERATOR, FLO L V76.2 Cervical Cancer Screening (pap Smear) 12/29/2011 MICHAEL SEVILLA APRNETTE 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 12/29/2011 ROEL THIOKOL OPERATOR, GODWIN 427.89 Other Specified Cardiac Dysrhythmias 12/29/2011 ROEL THIOKOL OPERATOR, GODWIN V25.9 Contraception Management 12/29/2011 ROEL THIOKOL OPERATOR, GODWIN V76.2 Cervical Cancer Screening (pap Smear) 12/29/2011 SONNY APRN, ELIAS A 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 12/29/2011 SONNY THIOKOL OPERATOR, ELIAS A 427.89 Other Specified Cardiac Dysrhythmias 12/29/2011 SONNY THIOKOL OPERATOR, ELIAS A V25.9 Contraception Management 12/29/2011 SONNY THIOKOL OPERATOR, ELIAS A V76.2 Cervical Cancer Screening (pap Smear) 12/29/2011 [facility], DEMOND R 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 12/29/2011 [facility], DEMOND R 427.89 Other Specified Cardiac Dysrhythmias 12/29/2011 [facility], DEMOND R V25.9 Contraception Management 12/29/2011 [facility], DEMOND R V76.2 Cervical Cancer Screening (pap Smear) 12/29/2011 LISA MENG, FLO L 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 12/29/2011 LISA MENG, FLO L 427.89 Other Specified Cardiac Dysrhythmias 12/29/2011 BRYANL THIOKOL OPERATOR, FLO L V25.9 Contraception Management 12/29/2011 MADL THIOKOL OPERATOR, FLO L V76.2 Cervical Cancer Screening (pap Smear) 12/29/2011 JOSE SILVERIO DDS 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 12/29/2011 NUSRAT JENKINSSJOSE 427.89 Other Specified Cardiac Dysrhythmias 12/29/2011 SILVERIO DDSJOSE V25.9 Contraception Management 12/29/2011 NUSRAT JENKINSSJOSE V76.2 Cervical Cancer Screening (pap Smear) 12/29/2011 [facility], DEMOND R 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 12/29/2011 [facility], DEMOND R 427.89 Other Specified Cardiac Dysrhythmias 12/29/2011 [facility], DEMOND R V25.9 Contraception Management 12/29/2011 [facility], DEMOND R V76.2 Cervical Cancer Screening (pap Smear) 12/29/2011 [facility], DEMOND R 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 12/29/2011 [facility], DEMOND R 427.89 Other Specified Cardiac Dysrhythmias 12/29/2011 [facility], DEMOND R V25.9 Contraception Management 12/29/2011 [facility], DEMOND R V76.2 Cervical Cancer Screening (pap Smear) 12/29/2011 ROEL THIOKOL OPERATOR, GODWIN 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 12/29/2011 ROEL THIOKOL OPERATOR, GODWIN 427.89 Other Specified Cardiac Dysrhythmias 12/29/2011 ROEL THIOKOL OPERATOR, GODWIN V25.9 Contraception Management 12/29/2011 ROEL THIOKOL OPERATOR, GODWIN V76.2 Cervical Cancer Screening (pap Smear) 12/29/2011 NICOLA MANUEL DO 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 12/29/2011 NICOLA MANUEL DO 427.89 Other Specified Cardiac Dysrhythmias 12/29/2011 NICOLA MANUEL DO V25.9 Contraception Management 12/29/2011 NICOLA MANUEL DO V76.2 Cervical Cancer Screening (pap Smear) 12/29/2011 ROEL THIOKOL OPERATOR, GODWIN 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 12/29/2011 ROEL THIOKOL OPERATOR, GODWIN 427.89 Other Specified Cardiac Dysrhythmias 12/29/2011 ROEL THIOKOL OPERATOR, GODWIN V25.9 Contraception Management 12/29/2011 ROEL THIOKOL OPERATOR, GODWIN V76.2 Cervical Cancer Screening (pap Smear) 12/29/2011 ROEL THIOKOL OPERATOR, GODWIN 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 12/29/2011 ROEL THIOKOL OPERATOR, GODWIN 427.89 Other Specified Cardiac Dysrhythmias 12/29/2011 ROEL THIOKOL OPERATOR, GODWIN V25.9 Contraception Management 12/29/2011 ROEL THIOKOL OPERATOR, GODWIN V76.2 Cervical Cancer Screening (pap Smear) [...] APRN D 427.9 Arrhythmia, Cardiac (sinus) 01/25/2012 KEITH HUNTER APRNTH D 786.50 Unspecified Chest Pain 01/25/2012 JASON [...] Grade Squamous Intraepithelial Lesion (lgsil) 01/25/2012 ROEL THIOKOL OPERATOR, GODWIN 427.9 Arrhythmia, Cardiac (sinus) 01/25/2012 ROEL THIOKOL OPERATOR, GODWIN 786.50 Unspecified Chest Pain 01/25/2012 ROEL THIOKOL OPERATOR, GODWIN 795.03 Papanicolaou Smear Of Cervix With Low Grade Squamous Intraepithelial Lesion (lgsil) 01/25/2012 MADL THIOKOL OPERATOR, FLO L 427.9 Arrhythmia, Cardiac (sinus) 01/25/2012 MADL THIOKOL OPERATOR, FLO L 786.50 Unspecified Chest Pain 01/25/2012 MADL THIOKOL OPERATOR, FLO L 795.03 Papanicolaou Smear Of Cervix With Low Grade Squamous Intraepithelial Lesion (lgsil) 01/25/2012 ROEL THIOKOL OPERATOR, GODWIN 427.9 Arrhythmia, Cardiac (sinus) 01/25/2012 ROEL THIOKOL OPERATOR, GODWIN 786.50 Unspecified Chest Pain 01/25/2012 ROEL THIOKOL OPERATOR, GODWIN 795.03 Papanicolaou Smear Of Cervix With Low Grade Squamous Intraepithelial Lesion (lgsil) 01/25/2012 MADL THIOKOL OPERATOR, FLO L 427.9 Arrhythmia, Cardiac (sinus) 01/25/2012 MADL THIOKOL OPERATOR, FLO L 786.50 Unspecified Chest Pain 01/25/2012 MADL THIOKOL OPERATOR, FLO L 795.03 Papanicolaou Smear Of Cervix With Low Grade Squamous Intraepithelial Lesion (lgsil) 01/25/2012 ROEL THIOKOL OPERATOR, GODWIN 427.9 Arrhythmia, Cardiac (sinus) 01/25/2012 ROEL THIOKOL OPERATOR, GODWIN 786.50 Unspecified Chest Pain 01/25/2012 ROEL THIOKOL OPERATOR, GODWIN 795.03 Papanicolaou Smear Of Cervix With Low Grade Squamous Intraepithelial Lesion (lgsil) 01/25/2012 ROEL THIOKOL OPERATOR, GODWIN 427.9 Arrhythmia, Cardiac (sinus) 01/25/2012 ROEL THIOKOL OPERATOR, GODWIN 786.50 Unspecified Chest Pain 01/25/2012 ROEL THIOKOL OPERATOR, GODWIN 795.03 Papanicolaou Smear Of Cervix With Low Grade Squamous Intraepithelial Lesion (lgsil) 01/25/2012 MADL THIOKOL OPERATOR, FLO L 427.9 Arrhythmia, Cardiac (sinus) 01/25/2012 MADL THIOKOL OPERATOR, FLO L 786.50 Unspecified Chest Pain 01/25/2012 MADL THIOKOL OPERATOR, FLO L 795.03 Papanicolaou Smear Of Cervix With Low Grade Squamous Intraepithelial Lesion (lgsil) 01/25/2012 MADL THIOKOL OPERATOR, FLO L 427.9 Arrhythmia, Cardiac (sinus) 01/25/2012 MADL THIOKOL OPERATOR, FLO L 786.50 Unspecified Chest Pain 01/25/2012 MADL THIOKOL OPERATOR, FLO L 795.03 Papanicolaou Smear Of Cervix With Low Grade Squamous Intraepithelial Lesion (lgsil) 01/25/2012 OREL THIOKOL OPERATOR, GODWIN 427.9 Arrhythmia, Cardiac (sinus) 01/25/2012 ROEL THIOKOL OPERATOR, GODWIN 786.50 Unspecified Chest Pain 01/25/2012 ROEL THIOKOL OPERATOR, GODWIN 795.03 Papanicolaou Smear Of Cervix With Low Grade Squamous Intraepithelial Lesion (lgsil) 01/25/2012 CARMINA DENNIS APRNIDI A 427.9 Arrhythmia, Cardiac (sinus) 01/25/2012 SONNY MENG ELIAS A 786.50 Unspecified Chest Pain 01/25/2012 SONNY MENG ELIAS A 795.03 Papanicolaou Smear Of Cervix With Low Grade Squamous Intraepithelial Lesion (lgsil) 01/25/2012 [facility] 427.9 Arrhythmia, Cardiac (sinus) 01/25/2012 [facility] R 786.50 Unspecified Chest Pain 01/25/2012 [facility] DEM[facility] R 795.03 Papanicolaou Smear Of Cervix With Low Grade Squamous Intraepithelial Lesion (lgsil) 01/25/2012 MADL THIOKOL OPERATOR, FLO L 427.9 Arrhythmia, Cardiac (sinus) 01/25/2012 MADL THIOKOL OPERATOR, FLO L 786.50 Unspecified Chest Pain 01/25/2012 LISA MENG, FLO L 795.03 Papanicolaou Smear Of Cervix With Low Grade Squamous Intraepithelial Lesion (lgsil) 01/25/2012 NUSRAT JENKINSSJOSE 427.9 Arrhythmia, Cardiac (sinus) 01/25/2012 SILVERIO DDS, JOSE 786.50 Unspecified Chest Pain 01/25/2012 NUSRAT DDS, JOSE 795.03 Papanicolaou Smear Of Cervix With Low Grade Squamous Intraepithelial Lesion (lgsil) 01/25/2012 [facility], DEMOND R 427.9 Arrhythmia, Cardiac (sinus) 01/25/2012 [facility], DEMOND R 786.50 Unspecified Chest Pain 01/25/2012 [facility], DEMOND R 795.03 Papanicolaou Smear Of Cervix With Low Grade Squamous Intraepithelial Lesion (lgsil) 01/25/2012 [facility], DEMOND R 427.9 Arrhythmia, Cardiac (sinus) 01/25/2012 [facility], DEMOND R 786.50 Unspecified Chest Pain 01/25/2012 [facility], DEMOND R 795.03 Papanicolaou Smear Of Cervix With Low Grade Squamous Intraepithelial Lesion (lgsil) 01/25/2012 ROEL THIOKOL OPERATOR, GODWIN 427.9 Arrhythmia, Cardiac (sinus) 01/25/2012 ROEL THIOKOL OPERATOR, GODWIN 786.50 Unspecified Chest Pain 01/25/2012 ROEL THIOKOL OPERATOR, GODWIN 795.03 Papanicolaou Smear Of Cervix With Low Grade Squamous Intraepithelial Lesion (lgsil) 01/25/2012 MAR BLANTON NICOLA K 427.9 Arrhythmia, Cardiac (sinus) 01/25/2012 MANUEL DO NICOLA K 786.50 Unspecified Chest Pain 01/25/2012 MAR BLANTON NICOLA K 795.03 Papanicolaou Smear Of Cervix With Low Grade Squamous Intraepithelial Lesion ( lgsil) 01/25/2012 ROEL THIOKOL OPERATOR, GODWIN 427.9 Arrhythmia, Cardiac (sinus) 01/25/2012 ROEL THIOKOL OPERATOR, GODWIN 786.50 Unspecified Chest Pain 01/25/2012 ROEL THIOKOL OPERATOR, GODWIN 795.03 Papanicolaou Smear Of Cervix With Low Grade Squamous Intraepithelial Lesion (lgsil) 01/25/2012 ROEL THIOKOL OPERATOR, GODWIN 427.9 Arrhythmia, Cardiac (sinus) 01/25/2012 GODWIN [...] WHITE DDSKELY 724.5 Backache Unspecified 06/25/2012 WHITE DDS, KELY Chrissie 789.00 abdominal pain 06/25/2012 JASON HUNTER APRN [...] GONZALEZ APRN L 724.5 Backache Unspecified 06/25/2012 NARAYAN GONZALEZ APRNWNYA L 789.00 abdominal pain 06/25/2012 ROEL MENG GODWIN 724.5 Backache Unspecified 06/25/2012 ROEL MENG GODWIN 789.00 abdominal pain 06/25/2012 MADL THIOKOL OPERATOR, FLO L 724.5 Backache Unspecified 06/25/2012 MADL THIOKOL OPERATOR, FLO L 789.00 abdominal pain 06/25/2012 ROEL THIOKOL OPERATOR, GODWIN 724.5 Backache Unspecified 06/25/2012 ROEL THIOKOL OPERATOR, GODWIN 789.00 abdominal pain 06/25/2012 ROEL THIOKOL OPERATOR, GODWIN 724.5 Backache Unspecified 06/25/2012 ROEL THIOKOL OPERATOR, GODWIN 789.00 abdominal pain 06/25/2012 MADL THIOKOL OPERATOR, FLO L 724.5 Backache Unspecified 06/25/2012 MADL THIOKOL OPERATOR, FLO L 789.00 abdominal pain 06/25/2012 MADL THIOKOL OPERATOR, FLO L 724.5 Backache Unspecified 06/25/2012 MADL THIOKOL OPERATOR, FLO L 789.00 abdominal pain 06/25/2012 ROEL THIOKOL OPERATOR, GODWIN 724.5 Backache Unspecified 06/25/2012 ROEL THIOKOL OPERATOR, GODWIN 789.00 abdominal pain 06/25/2012 SONNY THIOKOL OPERATOR, ELIAS A 724.5 Backache Unspecified 06/25/2012 SONNY THIOKOL OPERATOR, ELIAS A 789.00 abdominal pain 06/25/2012 [facility], DEMOND R 724.5 Backache Unspecified 06/25/2012 [facility], DEMOND R 789.00 abdominal pain 06/25/2012 MADL THIOKOL OPERATOR, FLO L 724.5 Backache Unspecified 06/25/2012 MADL THIOKOL OPERATOR, FLO L 789.00 abdominal pain 06/25/2012 SILVERIO DDS, JOSE 724.5 Backache Unspecified 06/25/2012 SILVERIO DDS, JOSE 789.00 abdominal pain 06/25/2012 [facility], DEMOND R 724.5 Backache Unspecified 06/25/2012 [facility], DEMOND R 789.00 abdominal pain 06/25/2012 [facility], DEMOND R 724.5 Backache Unspecified 06/25/2012 [facility], DEMOND R 789.00 abdominal pain 06/25/2012 ROEL THIOKOL OPERATOR, GODWIN 724.5 Backache Unspecified 06/25/2012 ROEL THIOKOL OPERATOR, GODWIN 789.00 abdominal pain 06/25/2012 MANUEL DOMARALA K 724.5 Backache Unspecified 06/25/2012 MANUEL DO, NCIOLA K 789.00 abdominal pain 06/25/2012 ROEL THIOKOL OPERATOR, GODWIN 724.5 Backache Unspecified 06/25/2012 ROEL THIOKOL OPERATOR, GODWIN 789.00 abdominal pain 06/25/2012 ROEL THIOKOL OPERATOR, GODWIN 724.5 Backache Unspecified 06/25/2012 ROEL THIOKOL OPERATOR, GODWIN 789.00 abdominal pain 06/27/2012 EVITA JONES, [...] DO, NICOLA K 786.50 Chest Pain 06/27/2012 WERJASON ZARAGOZA DO F 785.1 Palpitations 06/27/2012 JASON SOLANO [...] NICOLA K 786.50 Chest Pain 06/27/2012 WHITE DDS, KELY J 785.1 Palpitations 06/27/2012 WHITE DDSKELY 786.05 Shortness Of Breath 06/27/2012 WHITE DDS, KELY J 786.50 Chest Pain 06/27/2012 BRIANTON THIOKOL OPERATORJASON Kirkpatrick D 785.1 Palpitations 06/27/2012 JASON HUNTER APRN D 786.05 Shortness Of Breath 06/27/2012 BRIANTON THIOKOL OPERATORASHLEY KirkpatrickJASON D 786.50 Chest Pain 06/27/2012 [facility]RIANT[facility] THIOKOL OPERATORASHLEY KirkpatrickJASON D 785.1 Palpitations 06/27/2012 [place] JASON MENG D 786.05 Shortness Of Breath 06/27/2012 BRIANTON THIOKOL OPERATORASHLEY KirkpatrickJASON D 786.50 Chest Pain 06/27/2012 DALE THIOKOL OPERATORJASON Kirkpatrick D 785.1 Palpitations 06/27/2012 BRIANJASON RENTERIA APRN D 786.05 Shortness Of Breath 06/27/2012 BRIANJASON RENTERIA APRN D 786.50 Chest Pain 06/27/2012 WOLF JAMA MD 785.1 Palpitations 06/27/2012 WOLF JAMA MD 786.05 Shortness Of Breath 06/27/2012 WOLF JAMA MD 786.50 Chest Pain 06/27/2012 ROEL THIOKOL OPERATOR, GODWIN 785.1 Palpitations 06/27/2012 ROEL THIOKOL OPERATOR, GODWIN 786.05 Shortness Of Breath 06/27/2012 ROEL THIOKOL OPERATOR, GODWIN 786.50 Chest Pain 06/27/2012 MADL THIOKOL OPERATOR, FLO L 785.1 Palpitations 06/27/2012 MADL THIOKOL OPERATOR, FLO L 786.05 Shortness Of Breath 06/27/2012 MADL THIOKOL OPERATOR, FLO L 786.50 Chest Pain 06/27/2012 ROEL THIOKOL OPERATOR, GODWIN 785.1 Palpitations 06/27/2012 ROEL THIOKOL OPERATOR, GODWIN 786.05 Shortness Of Breath 06/27/2012 ROEL THIOKOL OPERATOR, GODWIN 786.50 Chest Pain 06/27/2012 MADL THIOKOL OPERATOR, FLO L 785.1 Palpitations 06/27/2012 MADL THIOKOL OPERATOR, FLO L 786.05 Shortness Of Breath 06/27/2012 MADL THIOKOL OPERATOR, FLO L 786.50 Chest Pain 06/27/2012 ROEL THIOKOL OPERATOR, GODWIN 785.1 Palpitations 06/27/2012 ROEL THIOKOL OPERATOR, GODWIN 786.05 Shortness Of Breath 06/27/2012 ROEL THIOKOL OPERATOR, GODWIN 786.50 Chest Pain 06/27/2012 ROEL THIOKOL OPERATOR, GODIWN 785.1 Palpitations 06/27/2012 ROEL THIOKOL OPERATOR, GODWIN 786.05 Shortness Of Breath 06/27/2012 ROEL THIOKOL OPERATOR, GODWIN 786.50 Chest Pain 06/27/2012 MADL THIOKOL OPERATOR, FLO L 785.1 Palpitations 06/27/2012 MADL THIOKOL OPERATOR, FLO L 786.05 Shortness Of Breath 06/27/2012 MADL THIOKOL OPERATOR, FLO L 786.50 Chest Pain 06/27/2012 MADL THIOKOL OPERATOR, FLO L 785.1 Palpitations 06/27/2012 MADL THIOKOL OPERATOR, FLO L 786.05 Shortness Of Breath 06/27/2012 MADL THIOKOL OPERATOR, FLO L 786.50 Chest Pain 06/27/2012 ROEL THIOKOL OPERATOR, GODWIN 785.1 Palpitations 06/27/2012 ROEL THIOKOL OPERATOR, GODWIN 786.05 Shortness Of Breath 06/27/2012 ROEL THIOKOL OPERATOR, GODWIN 786.50 Chest Pain 06/27/2012 SONNY THIOKOL OPERATOR, ELIAS A 785.1 Palpitations 06/27/2012 SONNY THIOKOL OPERATOR, ELIAS A 786.05 Shortness Of Breath 06/27/2012 SONNY THIOKOL OPERATOR, ELIAS A 786.50 Chest Pain 06/27/2012 [facility], DEMOND R 785.1 Palpitations 06/27/2012 [facility], DEMOND R 786.05 Shortness Of Breath 06/27/2012 [facility], DEMOND R 786.50 Chest Pain 06/27/2012 MADL THIOKOL OPERATOR, FLO L 785.1 Palpitations 06/27/2012 MADL THIOKOL OPERATOR, FLO L 786.05 Shortness Of Breath 06/27/2012 MADL THIOKOL OPERATOR, FLO L 786.50 Chest Pain 06/27/2012 SILVERIO [...] DEMOND R 786.50 Chest Pain 06/27/2012 ROEL THIOKOL OPERATOR, GODWIN 785.1 Palpitations 06/27/2012 ROEL THIOKOL OPERATOR, GODWIN 786.05 Shortness Of Breath 06/27/2012 ROEL THIOKOL OPERATOR, GODWIN 786.50 Chest Pain 06/27/2012 MANUEL DO, NICOLA K 785.1 Palpitations 06/27/2012 MANUEL DO, NICOLA K 786.05 Shortness Of Breath 06/27/2012 MANUEL DO, NICOLA K 786.50 Chest Pain 06/27/2012 ROEL THIOKOL OPERATOR, GODWIN 785.1 Palpitations 06/27/2012 ROEL THIOKOL OPERATOR, GODWIN 786.05 Shortness Of Breath 06/27/2012 ROEL THIOKOL OPERATOR, GODWIN 786.50 Chest Pain 06/27/2012 ROEL THIOKOL OPERATOR, GODWIN 785.1 Palpitations 06/27/2012 ROEL THIOKOL OPERATOR, GODWIN 786.05 Shortness Of Breath 06/27/2012 ROEL THIOKOL OPERATOR, GODWIN 786.50 Chest Pain 08/07/2012 WOLF JAMA [...] K 617.9 ENDOMETRIOSIS SITE UNSPECIFIED 08/07/2012 MAR DO NICOLA K 625.9 Pelvic Pain 08/07/2012 [...] DO V05.3 Hep B (adult) Dx 08/07/2012 INCOLA MANUEL DO V76.2 Cervical Cancer Screening (pap [...] Screening (pap Smear) 08/07/2012 NICOLA MANUEL DO K 617.9 ENDOMETRIOSIS SITE UNSPECIFIED 08/07/2012 MANUEL NICOLA BLANTON K 625.9 Pelvic Pain 08/07/2012 MAR BLANTONMARALA K V05.3 Hep B (adult) Dx 08/07/2012 MANUEL NICOLA BLANTON K V76.2 Cervical Cancer Screening (pap Smear) [...] Screening (pap Smear) 08/07/2012 JASON HUNTER APRN D 617.9 ENDOMETRIOSIS SITE UNSPECIFIED 08/07/2012 JASON HUNTER APRN 625.9 Pelvic Pain 08/07/2012 JASON HUNTER APRN V05.3 Hep B (adult) Dx 08/07/2012 JASON HUNTER APRN V76.2 Cervical Cancer Screening (pap Smear) 08/07/2012 WOLF JMAA MD 617.9 ENDOMETRIOSIS SITE UNSPECIFIED 08/07/2012 WOLF JAMA MD 625.9 Pelvic Pain 08/07/2012 WOLF JAMA MD V05.3 Hep B (adult) Dx 08/07/2012 WOLF JAMA MD V76.2 Cervical Cancer Screening (pap Smear) 08/07/2012 ROEL THIOKOL OPERATOR, GODWIN 617.9 ENDOMETRIOSIS SITE UNSPECIFIED 08/07/2012 ROEL THIOKOL OPERATOR, GODWIN 625.9 Pelvic Pain 08/07/2012 ROEL THIOKOL OPERATOR, GODWIN V05.3 Hep B (adult) Dx 08/07/2012 ROEL THIOKOL OPERATOR, GODWIN V76.2 Cervical Cancer Screening (pap Smear) 08/07/2012 MADL THIOKOL OPERATOR, FLO L 617.9 ENDOMETRIOSIS SITE UNSPECIFIED 08/07/2012 MADL THIOKOL OPERATOR, FLO L 625.9 Pelvic Pain 08/07/2012 MADL THIOKOL OPERATOR, FLO L V05.3 Hep B (adult) Dx 08/07/2012 MADL THIOKOL OPERATOR, FLO L V76.2 Cervical Cancer Screening (pap Smear) 08/07/2012 ROEL THIOKOL OPERATOR, GODWIN 617.9 ENDOMETRIOSIS SITE UNSPECIFIED 08/07/2012 ROEL THIOKOL OPERATOR, GODWIN 625.9 Pelvic Pain 08/07/2012 ROEL THIOKOL OPERATOR, GODWIN V05.3 Hep B (adult) Dx 08/07/2012 ROEL THIOKOL OPERATOR, GODWIN V76.2 Cervical Cancer Screening (pap Smear) 08/07/2012 MADL THIOKOL OPERATOR, FLO L 617.9 ENDOMETRIOSIS SITE UNSPECIFIED 08/07/2012 MADL THIOKOL OPERATOR, FLO L 625.9 Pelvic Pain 08/07/2012 MADL THIOKOL OPERATOR, FLO L V05.3 Hep B (adult) Dx 08/07/2012 MADL THIOKOL OPERATOR, FLO L V76.2 Cervical Cancer Screening (pap Smear) 08/07/2012 ROEL THIOKOL OPERATOR, GODWIN 617.9 ENDOMETRIOSIS SITE UNSPECIFIED 08/07/2012 ROEL THIOKOL OPERATOR, GODWIN 625.9 Pelvic Pain 08/07/2012 ROEL THIOKOL OPERATOR, GODWIN V05.3 Hep B (adult) Dx 08/07/2012 ROEL THIOKOL OPERATOR, GODWIN V76.2 Cervical Cancer Screening (pap Smear) 08/07/2012 ROEL THIOKOL OPERATOR, GODWIN 617.9 ENDOMETRIOSIS SITE UNSPECIFIED 08/07/2012 ROEL THIOKOL OPERATOR, GODWIN 625.9 Pelvic Pain 08/07/2012 ROEL THIOKOL OPERATOR, GODWIN V05.3 Hep B (adult) Dx 08/07/2012 ROEL THIOKOL OPERATOR, GODWIN V76.2 Cervical Cancer Screening (pap Smear) 08/07/2012 MADL THIOKOL OPERATOR, FLO L 617.9 ENDOMETRIOSIS SITE UNSPECIFIED 08/07/2012 MADL THIOKOL OPERATOR, FLO L 625.9 Pelvic Pain 08/07/2012 MADL THIOKOL OPERATOR, FLO L V05.3 Hep B (adult) Dx 08/07/2012 MADL THIOKOL OPERATOR, FLO L V76.2 Cervical Cancer Screening (pap Smear) 08/07/2012 MADL THIOKOL OPERATOR, FLO L 617.9 ENDOMETRIOSIS SITE UNSPECIFIED 08/07/2012 MADL THIOKOL OPERATOR, FLO L 625.9 Pelvic Pain 08/07/2012 MADL THIOKOL OPERATOR, FLO L V05.3 Hep B (adult) Dx 08/07/2012 MADL THIOKOL OPERATOR, FLO L V76.2 Cervical Cancer Screening (pap Smear) 08/07/2012 ROEL THIOKOL OPERATOR, GODWIN 617.9 ENDOMETRIOSIS SITE UNSPECIFIED 08/07/2012 ROEL THIOKOL OPERATOR, GODWIN 625.9 Pelvic Pain 08/07/2012 ROEL THIOKOL OPERATOR, GODWIN V05.3 Hep B (adult) Dx 08/07/2012 ROEL THIOKOL OPERATOR, GODWIN V76.2 Cervical Cancer Screening (pap Smear) 08/07/2012 SONNY MENG, ELIAS A 617.9 ENDOMETRIOSIS SITE UNSPECIFIED 08/07/2012 SONNY THIOKOL OPERATOR, ELIAS A 625.9 Pelvic Pain 08/07/2012 SONNY THIOKOL OPERATOR, ELIAS A V05.3 Hep B (adult) Dx 08/07/2012 SONNY THIOKOL OPERATOR, ELIAS A V76.2 Cervical Cancer Screening (pap Smear) 08/07/2012 [facility], DEMOND R 617.9 ENDOMETRIOSIS SITE UNSPECIFIED 08/07/2012 [facility], DEMOND Fernando 625.9 Pelvic Pain 08/07/2012 [facility], DEMOND Fernando V05.3 Hep B (adult) Dx 08/07/2012 [facility], DEMOND R V76.2 Cervical Cancer Screening (pap Smear) 08/07/2012 MADL THIOKOL OPERATOR, FLO L 617.9 ENDOMETRIOSIS SITE UNSPECIFIED 08/07/2012 MADL THIOKOL OPERATOR, FLO L 625.9 Pelvic Pain 08/07/2012 [facility] THIOK[facility] OPERATOR, FLO L V05.3 Hep B (adult) Dx 08/07/2012 MAD[facility] THIOKOL OPERATOR, FLO L V76.2 Cervical Cancer Screening (pap Smear) 08/07/2012 SILVERIO DDSJOSE 617.9 ENDOMETRIOSIS SITE UNSPECIFIED 08/07/2012 SILVERIO DDS, JOSE 625.9 Pelvic Pain 08/07/2012 SILVERIO DDS, JOSE V05.3 Hep B (adult) Dx 08/07/2012 SILVERIO DDS, JOSE V76.2 Cervical Cancer Screening (pap Smear) 08/07/2012 [facility], DEMOND R 617.9 ENDOMETRIOSIS SITE UNSPECIFIED 08/07/2012 [facility], DEMOND R 625.9 Pelvic Pain 08/07/2012 [facility], DEMOND R V05.3 Hep B (adult) Dx 08/07/2012 [facility], DEMOND R V76.2 Cervical Cancer Screening (pap Smear) 08/07/2012 [facility], DEMOND R 617.9 ENDOMETRIOSIS SITE UNSPECIFIED 08/07/2012 [facility], DEMOND R 625.9 Pelvic Pain 08/07/2012 [facility], DEMOND R V05.3 Hep B (adult) Dx 08/07/2012 [facility], DEMOND R V76.2 Cervical Cancer Screening (pap Smear) 08/07/2012 ROEL THIOKOL OPERATOR, GODWIN 617.9 ENDOMETRIOSIS SITE UNSPECIFIED 08/07/2012 ROEL THIOKOL OPERATOR, GODWIN 625.9 Pelvic Pain 08/07/2012 ROEL THIOK[employer] OPERATOR, GODWIN V05.3 Hep B (adult) Dx 08/07/2012 ROEL THIOKOL OPERATOR, GODWIN V76.2 Cervical Cancer Screening (pap Smear) 08/07/2012 MANUEL DO NICOLA K 617.9 ENDOMETRIOSIS SITE UNSPECIFIED 08/07/2012 MANUEL DO, NICOLA K 625.9 Pelvic Pain 08/07/2012 MANUEL DO, NICOLA K V05.3 Hep B (adult) Dx 08/07/2012 NICOLA MANUEL DO V76.2 Cervical Cancer Screening (pap Smear) 08/07/2012 ROEL THIOKOL OPERATOR, GODWIN 617.9 ENDOMETRIOSIS SITE UNSPECIFIED 08/07/2012 ROEL THIOKOL OPERATOR, GODWIN 625.9 Pelvic Pain 08/07/2012 ROEL THIOKOL OPERATOR, GODWIN V05.3 Hep B (adult) Dx 08/07/2012 ROEL THIOKOL OPERATOR, GODWIN V76.2 Cervical Cancer Screening (pap Smear) 08/07/2012 ROEL THIOKOL OPERATOR, GODWIN 617.9 ENDOMETRIOSIS SITE UNSPECIFIED 08/07/2012 ROEL THIOKOL OPERATOR, GODWIN 625.9 Pelvic Pain 08/07/2012 ROEL THIOKOL OPERATOR, GODWIN V05.3 Hep B (adult) Dx 08/07/2012 ROEL THIOKOL OPERATOR, GODWIN V76.2 Cervical Cancer Screening (pap Smear) [...] UNSPECIFIED NONINFECTIOUS GASTROENTERITIS AND COLITIS 09/28/2012 IDALIA JENKINSSKELY 558.9 OTHER AND UNSPECIFIED NONINFECTIOUS GASTROENTERITIS AND [...] UNSPECIFIED NONINFECTIOUS GASTROENTERITIS AND COLITIS 09/28/2012 ROEL THIOKOL OPERATOR, GODWIN 558.9 OTHER AND UNSPECIFIED NONINFECTIOUS GASTROENTERITIS AND COLITIS 09/28/2012 ROSITA GONZALEZ APRNA L 558.9 OTHER AND UNSPECIFIED NONINFECTIOUS GASTROENTERITIS AND COLITIS 09/28/2012 ROEL THIOKOL OPERATOR GODWIN 558.9 OTHER AND UNSPECIFIED NONINFECTIOUS GASTROENTERITIS AND COLITIS 09/28/2012 ROEL THIOKOL OPERATOR, GODWIN 558.9 OTHER AND UNSPECIFIED NONINFECTIOUS GASTROENTERITIS AND COLITIS 09/28/2012 ROSITA GONZALEZ APRNA L 558.9 OTHER AND UNSPECIFIED NONINFECTIOUS GASTROENTERITIS AND COLITIS 09/28/2012 MADL TAQUERIA FLO L 558.9 OTHER AND UNSPECIFIED NONINFECTIOUS GASTROENTERITIS AND COLITIS 09/28/2012 ROEL THIOKOL OPERATOR, GODWIN 558.9 OTHER AND UNSPECIFIED NONINFECTIOUS GASTROENTERITIS AND COLITIS 09/28/2012 SONNY MENG, ELIAS A 558.9 OTHER AND UNSPECIFIED NONINFECTIOUS GASTROENTERITIS AND COLITIS 09/28/2012 [facility], DEMOND R 558.9 OTHER AND UNSPECIFIED NONINFECTIOUS GASTROENTERITIS AND COLITIS 09/28/2012 LISA MENG FLO L 558.9 OTHER AND UNSPECIFIED NONINFECTIOUS GASTROENTERITIS AND COLITIS 09/28/2012 JOSE SILVERIO DDS 558.9 OTHER AND UNSPECIFIED NONINFECTIOUS GASTROENTERITIS AND COLITIS 09/28/2012 [facility] [facility] R 558.9 OTHER AND UNSPECIFIED NONINFECTIOUS GASTROENTERITIS AND COLITIS 09/28/2012 [facility], DEMOND R 558.9 OTHER AND UNSPECIFIED NONINFECTIOUS GASTROENTERITIS AND COLITIS 09/28/2012 ROELSAM MENG GODWIN 558.9 OTHER AND UNSPECIFIED NONINFECTIOUS GASTROENTERITIS AND COLITIS 09/28/2012 NICOLA MANUEL DO 558.9 OTHER AND UNSPECIFIED NONINFECTIOUS GASTROENTERITIS AND COLITIS 09/28/2012 ROEL THIOKOL OPERATOR, GODWIN 558.9 OTHER AND UNSPECIFIED NONINFECTIOUS GASTROENTERITIS AND COLITIS 09/28/2012 ROEL THIOKOL OPERATOR, GODWIN 558.9 OTHER AND UNSPECIFIED NONINFECTIOUS GASTROENTERITIS [...] DO, NICOLA K 626.0 AMENORRHEA 11/29/2012 IDALIA DDS, KELY Dickens 626.0 AMENORRHEA 11/29/2012 DALE THIOKOL OPERATORJASON Kirkpatrick 626.0 AMENORRHEA 11/29/2012 DALE THIOKOL OPERATOR, JASON Steel 626.0 AMENORRHEA 11/29/2012 DALE MENG, JASON Steel 626.0 AMENORRHEA 11/29/2012 WOLF JAMA MD 626.0 AMENORRHEA 11/29/2012 ROEL THIOKOL OPERATOR, GODWIN 626.0 AMENORRHEA 11/29/2012 MADL THIOKOL OPERATOR, FLO L 626.0 AMENORRHEA 11/29/2012 ROEL THIOKOL OPERATOR, GODWIN 626.0 AMENORRHEA 11/29/2012 MADL THIOKOL OPERATOR, FLO L 626.0 AMENORRHEA 11/29/2012 ROEL THIOKOL OPERATOR, GODWIN 626.0 AMENORRHEA 11/29/2012 ROEL THIOKOL OPERATOR, GODWIN 626.0 AMENORRHEA 11/29/2012 MADL THIOKOL OPERATOR, FLO L 626.0 AMENORRHEA 11/29/2012 MADL THIOKOL OPERATOR, FLO L 626.0 AMENORRHEA 11/29/2012 ROEL THIOKOL OPERATOR, GODWIN 626.0 AMENORRHEA 11/29/2012 ELIAS DENNIS APRN A 626.0 AMENORRHEA 11/29/2012 [facility], [place] R 626.0 AMENORRHEA 11/29/2012 MADL THIOKOL OPERATOR, FOL L 626.0 AMENORRHEA 11/29/2012 JOSE SILVERIO DDS 626.0 AMENORRHEA 11/29/2012 [facility], [place] R 626.0 AMENORRHEA 11/29/2012 [facility], [place] R 626.0 AMENORRHEA 11/29/2012 ROEL THIOKOL OPERATOR, GODWIN 626.0 AMENORRHEA 11/29/2012 NICOLA AMNUEL DO K 626.0 AMENORRHEA 11/29/2012 ROEL THIOKOL OPERATOR, GODWIN 626.0 AMENORRHEA 11/29/2012 ROEL THIOKOL OPERATOR, GODWIN 626.0 AMENORRHEA 12/08/2012 Ot 723.1 CERVICALGIA 12/08/2012 Ot 723.4 BRACHIAL NEURITIS NOS 12/11/2012 Ot 723.1 CERVICALGIA 12/11/2012 Ot 724.1 PAIN IN THORACIC SPINE 01/16/2013 NICOLA MANUEL DO K 305.1 TOBACCO ABUSE 01/16/2013 MARAL MANUEL DOA K 626.1 OLIGOMENORRHEA 01/16/2013 NICOLA MANUEL DO K V73.81 HPV SCREENING 01/16/2013 NICOLA MANUEL DO K V74.5 STD SCREEN 01/16/2013 MAR BLANTON NICOLA K V76.2 CERVICAL CANCER SCREENING (PAP SMEAR) 01/16/2013 JASON SOLANO DO 305.1 TOBACCO ABUSE 01/16/2013 JASON SOLANO DO 626.1 OLIGOMENORRHEA 01/16/2013 JASON SOLANO DO V73.81 HPV SCREENING 01/16/2013 JASON SOLANO DO V74.5 STD SCREEN 01/16/2013 JASON SOLANO DO V76.2 CERVICAL CANCER SCREENING (PAP SMEAR) [...] K 626.1 OLIGOMENORRHEA 01/16/2013 MARAL MANUEL DOA Jacinta V73.81 HPV SCREENING 01/16/2013 NICOLA MANUEL DO V74.5 STD SCREEN 01/16/2013 NICOLA MANUEL DO K V76.2 CERVICAL CANCER SCREENING (PAP SMEAR) 01/16/2013 WHITE DDSKELY J 305.1 TOBACCO ABUSE 01/16/2013 WHITE DDSJASMINON J 626.1 OLIGOMENORRHEA 01/16/2013 IDALIA JENKINSSJASMINON J V73.81 HPV SCREENING 01/16/2013 WHITE DDS, [...] LISA MENG FLO L 626.1 OLIGOMENORRHEA 01/16/2013 ROSITA GONZALEZ APRNA L V73.81 HPV SCREENING 01/16/2013 ROSITA GONZALEZ APRNA L V74.5 STD SCREEN 01/16/2013 FLO GONZALEZ APRN V76.2 CERVICAL CANCER SCREENING (PAP SMEAR) 01/16/2013 GODWIN SEVILLA APRN 305.1 TOBACCO ABUSE 01/16/2013 GODWIN SEVILLA APRN 626.1 OLIGOMENORRHEA 01/16/2013 ROEL THIOKOL OPERATOR, GODWIN V73.81 HPV SCREENING 01/16/2013 ROEL THIOKOL OPERATOR, GODWIN V74.5 STD SCREEN 01/16/2013 ROEL THIOKOL OPERATOR, GODWIN V76.2 CERVICAL CANCER SCREENING (PAP SMEAR) 01/16/2013 MAD THIOKOL OPERATOR, FLO L 305.1 TOBACCO ABUSE 01/16/2013 MADL THIOKOL OPERATOR, FLO L 626.1 OLIGOMENORRHEA 01/16/2013 MAD THIOKOL OPERATOR, FLO L V73.81 HPV SCREENING 01/16/2013 MAD THIOKOL OPERATOR, FLO L V74.5 STD SCREEN 01/16/2013 MAD THIOKOL OPERATOR, FLO L V76.2 CERVICAL CANCER SCREENING (PAP SMEAR) 01/16/2013 ROEL THIOKOL OPERATOR, GODWIN 305.1 TOBACCO ABUSE 01/16/2013 ROEL THIOKOL OPERATOR, GODWIN 626.1 OLIGOMENORRHEA 01/16/2013 ROEL THIOKOL OPERATOR, GODWIN V73.81 HPV SCREENING 01/16/2013 ROEL THIOKOL OPERATOR, GODWIN V74.5 STD SCREEN 01/16/2013 OREL THIOKOL OPERATOR, GODWIN V76.2 CERVICAL CANCER SCREENING (PAP SMEAR) 01/16/2013 ROEL THIOKOL OPERATOR, GODWIN 305.1 TOBACCO ABUSE 01/16/2013 ROEL THIOKOL OPERATOR, GODWIN 626.1 OLIGOMENORRHEA 01/16/2013 ROEL THIOKOL OPERATOR, GODWIN V73.81 HPV SCREENING 01/16/2013 ROEL THIOKOL OPERATOR, GODWIN V74.5 STD SCREEN 01/16/2013 ROEL THIOKOL OPERATOR, GODWIN V76.2 CERVICAL CANCER SCREENING (PAP SMEAR) 01/16/2013 MAD THIOKOL OPERATOR, FLO L 305.1 TOBACCO ABUSE 01/16/2013 MAD THIOKOL OPERATOR, FLO L 626.1 OLIGOMENORRHEA 01/16/2013 MAD THIOKOL OPERATOR, FLO L V73.81 HPV SCREENING 01/16/2013 MAD THIOKOL OPERATOR, FLO L V74.5 STD SCREEN 01/16/2013 MADL THIOKOL OPERATOR, FLO L V76.2 CERVICAL CANCER SCREENING (PAP SMEAR) 01/16/2013 MADL THIOKOL OPERATOR, FLO L 305.1 TOBACCO ABUSE 01/16/2013 MADL THIOKOL OPERATOR, FLO L 626.1 OLIGOMENORRHEA 01/16/2013 MADL THIOKOL OPERATOR, FLO L V73.81 HPV SCREENING 01/16/2013 MADL THIOKOL OPERATOR, FLO L V74.5 STD SCREEN 01/16/2013 MADL THIOKOL OPERATOR, FLO L V76.2 CERVICAL CANCER SCREENING (PAP SMEAR) 01/16/2013 MICHAEL SEVILLA APRNETTE 305.1 TOBACCO ABUSE 01/16/2013 ROEL THIOKOL OPERATOR, GODWIN 626.1 OLIGOMENORRHEA 01/16/2013 ROEL THIOKOL OPERATOR, GODWIN V73.81 HPV SCREENING 01/16/2013 ROEL THIOKOL OPERATOR, GODWIN V74.5 STD SCREEN 01/16/2013 ROEL THIOKOL OPERATOR, GODWIN V76.2 CERVICAL CANCER SCREENING (PAP SMEAR) 01/16/2013 SONNY APRN, ELIAS A 305.1 TOBACCO ABUSE 01/16/2013 SONNY THIOKOL OPERATOR, ELIAS A 626.1 OLIGOMENORRHEA 01/16/2013 SONNY THIOKOL OPERATOR, ELIAS A V73.81 HPV SCREENING 01/16/2013 SONNY THIOKOL OPERATOR, ELIAS A V74.5 STD SCREEN 01/16/2013 SONNY THIOKOL OPERATOR, ELIAS A V76.2 CERVICAL CANCER SCREENING (PAP SMEAR) 01/16/2013 [facility], [place] R 305.1 TOBACCO ABUSE 01/16/2013 [facility], DEM[place] R 626.1 OLIGOMENORRHEA 01/16/2013 [facility], [place] R V73.81 HPV SCREENING 01/16/2013 [facility], [place] R V74.5 STD SCREEN 01/16/2013 [facility], [place] R V76.2 CERVICAL CANCER SCREENING (PAP SMEAR) 01/16/2013 MAD THIOKOL OPERATOR, FLO L 305.1 TOBACCO ABUSE 01/16/2013 MADL THIOKOL OPERATOR, FLO L 626.1 OLIGOMENORRHEA 01/16/2013 MADL THIOKOL OPERATOR, FLO L V73.81 HPV SCREENING 01/16/2013 MADL THIOKOL OPERATOR, FLO L V74.5 STD SCREEN 01/16/2013 MADL THIOKOL OPERATOR, FLO L V76.2 CERVICAL CANCER SCREENING (PAP SMEAR) 01/16/2013 JOSE SILVERIO DDS 305.1 TOBACCO ABUSE 01/16/2013 SILVERIO DDS, JOSE 626.1 OLIGOMENORRHEA 01/16/2013 SILVERIO DDS, JOSE V73.81 HPV SCREENING 01/16/2013 SILVERIO DDS, JOSE V74.5 STD SCREEN 01/16/2013 SILVERIO DDS, JOSE V76.2 CERVICAL CANCER SCREENING (PAP SMEAR) 01/16/2013 [facility], [place] R 305.1 TOBACCO ABUSE 01/16/2013 [facility], DEM[place] R 626.1 OLIGOMENORRHEA 01/16/2013 [facility], [place] R V73.81 HPV SCREENING 01/16/2013 [facility], [place] R V74.5 STD SCREEN 01/16/2013 [facility], [place] R V76.2 CERVICAL CANCER SCREENING (PAP SMEAR) 01/16/2013 [facility], [place] R 305.1 TOBACCO ABUSE 01/16/2013 [facility], [place] R 626.1 OLIGOMENORRHEA 01/16/2013 [facility], [place] R V73.81 HPV SCREENING 01/16/2013 [facility], [place] R V74.5 STD SCREEN 01/16/2013 [facility], [place] R V76.2 CERVICAL CANCER SCREENING (PAP SMEAR) 01/16/2013 ROEL MENG GODWIN 305.1 TOBACCO ABUSE 01/16/2013 ROEL THIOKOL OPERATOR, GODWIN 626.1 OLIGOMENORRHEA 01/16/2013 ROEL THIOKOL OPERATOR, GODWIN V73.81 HPV SCREENING 01/16/2013 ROEL THIOKOL OPERATOR, GODWIN V74.5 STD SCREEN 01/16/2013 ROEL THIOKOL OPERATOR, GODWIN V76.2 CERVICAL CANCER SCREENING (PAP SMEAR) 01/16/2013 MANUEL DO NICOLA K 305.1 TOBACCO ABUSE 01/16/2013 MANUEL DO NICOLA K 626.1 OLIGOMENORRHEA 01/16/2013 MANUEL DO NICOLA K V73.81 HPV SCREENING 01/16/2013 MANUEL DO NICOLA K V74.5 STD SCREEN 01/16/2013 MANUEL DO NICOLA K V76.2 CERVICAL CANCER SCREENING (PAP SMEAR) 01/16/2013 ROEL THIOKOL OPERATOR, GODWIN 305.1 TOBACCO ABUSE 01/16/2013 ROEL THIOKOL OPERATOR, GODWIN 626.1 OLIGOMENORRHEA 01/16/2013 ROEL THIOKOL OPERATOR, GODWIN V73.81 HPV SCREENING 01/16/2013 ROEL THIOKOL OPERATOR, GODWIN V74.5 STD SCREEN 01/16/2013 ROEL THIOKOL OPERATOR, GODWIN V76.2 CERVICAL CANCER SCREENING (PAP SMEAR) 01/16/2013 ROEL THIOKOL OPERATOR, GODWIN 305.1 TOBACCO ABUSE 01/16/2013 ROEL THIOKOL OPERATOR, GODWIN 626.1 OLIGOMENORRHEA 01/16/2013 ROEL THIOKOL OPERATOR, GODWIN V73.81 HPV SCREENING 01/16/2013 ROEL THIOKOL OPERATOR, GODWIN V74.5 STD SCREEN 01/16/2013 ROEL THIOKOL OPERATOR, GODWIN V76.2 CERVICAL CANCER SCREENING (PAP SMEAR) [...] APRN 296.90 MOOD DISORDER NOS 01/24/2013 MADL THIOKOL OPERATOR, FLO L 296.90 MOOD DISORDER NOS 01/24/2013 ROEL THIOKOL OPERATOR, GODWIN 296.90 MOOD DISORDER NOS 01/24/2013 MADL THIOKOL OPERATOR, FLO L 296.90 MOOD DISORDER NOS 01/24/2013 ROEL THIOKOL OPERATOR, GODWIN 296.90 MOOD DISORDER NOS 01/24/2013 ROEL THIOKOL OPERATOR, GODWIN 296.90 MOOD DISORDER NOS 01/24/2013 MADL THIOKOL OPERATOR, FLO L 296.90 MOOD DISORDER NOS 01/24/2013 MADL THIOKOL OPERATOR, FLO L 296.90 MOOD DISORDER NOS 01/24/2013 ROEL THIOKOL OPERATOR, GODWIN 296.90 MOOD DISORDER NOS 01/24/2013 SONNY THIOKOL OPERATOR, ELIAS A 296.90 MOOD DISORDER NOS 01/24/2013 [facility], [place] R 296.90 MOOD DISORDER NOS 01/24/2013 MADL THIOKOL OPERATOR, FLO L 296.90 MOOD DISORDER NOS 01/24/2013 NUSRAT JENKNISS, JOSE 296.90 MOOD DISORDER NOS 01/24/2013 [facility], [place] R 296.90 MOOD DISORDER NOS 01/24/2013 [facility], [place] R 296.90 MOOD DISORDER NOS 01/24/2013 ROEL THIOKOL OPERATOR, GODWIN 296.90 MOOD DISORDER NOS 01/24/2013 NICOLA MANUEL DO 296.90 MOOD DISORDER NOS 01/24/2013 ROEL THIOKOL OPERATOR, GODWIN 296.90 MOOD DISORDER NOS 01/24/2013 ROEL THIOKOL OPERATOR, GODWIN 296.90 MOOD DISORDER NOS 02/13/2013 787.02 [...] EVITA JONES, WOLF 787.02 NAUSEA ALONE 02/13/2013 NICOLA MANUEL DO 787.02 NAUSEA ALONE 02/13/2013 KELY FRIEDMAN DDS 787.02 NAUSEA ALONE 02/13/2013 JASON HUNTER APRN 787.02 NAUSEA ALONE 02/13/2013 JASON HUNTER APRN 787.02 NAUSEA ALONE 02/13/2013 JASON HUNTER APRN 787.02 NAUSEA ALONE 02/13/2013 OWLF JAMA MD 787.02 NAUSEA ALONE 02/13/2013 ROEL THIOKOL OPERATOR, GODWIN 787.02 NAUSEA ALONE 02/13/2013 MADROSITA Alfred APRNA L 787.02 NAUSEA ALONE 02/13/2013 ROEL THIOKOL OPERATOR, GODWIN 787.02 NAUSEA ALONE 02/13/2013 LISA MENG FLO L 787.02 NAUSEA ALONE 02/13/2013 ROEL TAQUERIA GODWIN 787.02 NAUSEA ALONE 02/13/2013 ROEL THIOKOL OPERATOR, GODWIN 787.02 NAUSEA ALONE 02/13/2013 MADTima MENG FLO L 787.02 NAUSEA ALONE 02/13/2013 MADL TAQUERIA FLO L 787.02 NAUSEA ALONE 02/13/2013 ROEL THIOKOL OPERATOR, GODWIN 787.02 NAUSEA ALONE 02/13/2013 ELIAS DENNIS APRN 787.02 NAUSEA ALONE 02/13/2013 [facility], [place] R 787.02 NAUSEA ALONE 02/13/2013 MADROSITA Alfred APRNA L 787.02 NAUSEA ALONE 02/13/2013 JOSE SILVERIO DDS 787.02 NAUSEA ALONE 02/13/2013 [facility], [place] R 787.02 NAUSEA ALONE 02/13/2013 [facility], [place] R 787.02 NAUSEA ALONE 02/13/2013 ROEL THIOKOL OPERATOR, GODWIN 787.02 NAUSEA ALONE 02/13/2013 NICOLA MANUEL DO 787.02 NAUSEA ALONE 02/13/2013 ROEL THIOKOL OPERATOR, GODWIN 787.02 NAUSEA ALONE 02/13/2013 ROEL THIOKOL OPERATOR, GODWIN 787.02 NAUSEA ALONE 03/23/2013 309.81 AN PTSD 03/23/2013 309.81 AN PTSD 03/23/2013 309.81 AN PTSD 03/23/2013 309.81 AN PTSD 03/23/2013 309.81 AN PTSD 03/23/2013 309.81 AN PTSD 03/23/2013 309.81 AN PTSD 03/23/2013 NICOLA MANUEL DO K 309.81 AN PTSD 03/23/2013 JASON HUNTER APRN 309.81 AN PTSD 03/23/2013 WOLF JAMA MD 309.81 AN PTSD 03/23/2013 NICOLA MANUEL DO 309.81 AN PTSD 03/23/2013 KELY FRIEDMAN DDS 309.81 AN PTSD 03/23/2013 JASON HUNTER APRN D 309.81 AN PTSD 03/23/2013 JASON HUNTER APRN 309.81 AN PTSD 03/23/2013 JASON HUNTER APRN D 309.81 AN PTSD 03/23/2013 WOLF JAMA MD 309.81 AN PTSD 03/23/2013 ROEL THIOKOL OPERATOR, GODWIN 309.81 AN PTSD 03/23/2013 MADL THIOKOL OPERATOR, FLO L 309.81 AN PTSD 03/23/2013 ROEL THIOKOL OPERATOR, GODWIN 309.81 AN PTSD 03/23/2013 MADL THIOKOL OPERATOR, FLO L 309.81 AN PTSD 03/23/2013 ROEL THIOKOL OPERATOR, GODWIN 309.81 AN PTSD 03/23/2013 ROEL THIOKOL OPERATOR, GODWIN 309.81 AN PTSD 03/23/2013 MADL THIOKOL OPERATOR, FLO L 309.81 AN PTSD 03/23/2013 MADL THIOKOL OPERATOR, FLO L 309.81 AN PTSD 03/23/2013 ROEL THIOKOL OPERATOR, GODWIN 309.81 AN PTSD 03/23/2013 SONNY THIOKOL OPERATOR, ELIAS A 309.81 AN PTSD 03/23/2013 [facility], [place] R 309.81 AN PTSD 03/23/2013 MADL THIOKOL OPERATOR, FLO L 309.81 AN PTSD 03/23/2013 JOSE SILVERIO DDS 309.81 AN PTSD 03/23/2013 [facility], [place] R 309.81 AN PTSD 03/23[facility] 03/23/2013 ROEL THIOKOL OPERATOR, GODWIN 309.81 AN PTSD 03/23/2013 NICOLA MANUEL [...] 724.2 LUMBAGO/ LOW BACK PAIN 04/26/2013 ROEL THIOKOL OPERATOR, GODWIN 724.2 LUMBAGO/ LOW BACK PAIN 04/26/2013 MADL THIOKOL OPERATOR, FLO L 724.2 LUMBAGO/ LOW BACK PAIN 04/26/2013 MADL THIOKOL OPERATOR, FLO L 724.2 LUMBAGO/ LOW BACK PAIN 04/26/2013 ROEL THIOKOL OPERATOR, GDOWIN 724.2 LUMBAGO/ LOW BACK PAIN 04/26/2013 SONNY THIOKOL OPERATOR, ELIAS A 724.2 LUMBAGO/ LOW BACK PAIN 04/26/2013 [facility], [place] R 724.2 LUMBAGO/ LOW BACK PAIN 04/26/2013 MADL THIOKOL OPERATOR, FLO L 724.2 LUMBAGO/ LOW BACK PAIN 04/26/2013 NUSRAT JENKINSS, JOSE 724.2 LUMBAGO/ LOW BACK PAIN 04/26/2013 [facility] 724.2 LUMBAGO/ LOW BACK PAIN 04/26/2013 [facility] 724.2 LUMBAGO/ LOW BACK PAIN 04/26/2013 ROEL THIOKOL OPERATOR, GODWIN 724.2 LUMBAGO/ LOW BACK PAIN 04/26/2013 MANUEL DONICOLA K 724.2 LUMBAGO/ LOW BACK PAIN 04/26/2013 ROEL THIOKOL OPERATOR, GODWIN 724.2 LUMBAGO/ LOW BACK PAIN 04/26/2013 ROEL THIOKOL OPERATOR, GODWIN 724.2 LUMBAGO/ LOW BACK PAIN 04/29/2013 799.81 DECREASED LIBIDO 04/29/2013 V26.9 PROCREATIVE MANAGEMENT 04/29/2013 799.81 DECREASED LIBIDO 04/29/2013 V26.9 PROCREATIVE MANAGEMENT 04/29/2013 799.81 DECREASED LIBIDO 04/29/2013 V26.9 PROCREATIVE MANAGEMENT 04/29/2013 799.81 DECREASED LIBIDO 04/29/2013 V26.9 PROCREATIVE MANAGEMENT 04/29/2013 NICOLA MANUEL DO K 799.81 DECREASED LIBIDO 04/29/2013 MANUEL NICOLA BLANTON V26.9 PROCREATIVE MANAGEMENT 04/29/2013 JASON HUNTER APRN 799.81 DECREASED LIBIDO 04/29/2013 JASON HUNTER APRN V26.9 PROCREATIVE MANAGEMENT 04/29/2013 WOLF JAMA MD 799.81 DECREASED LIBIDO 04/29/2013 WOLF JAMA MD V26.9 PROCREATIVE MANAGEMENT 04/29/2013 MANUEL DONICOLA K 799.81 DECREASED LIBIDO 04/29/2013 MANUEL DONICOLA K V26.9 PROCREATIVE MANAGEMENT 04/29/2013 WHITE DDSKELY J 799.81 DECREASED LIBIDO 04/29/2013 WHITE DDS, [...] GODWIN SEVILLA APRN V26.9 PROCREATIVE MANAGEMENT 04/29/2013 ROSITA GONZALEZ APRNA L 799.81 DECREASED LIBIDO 04/29/2013 LISA MENG FLO L V26.9 PROCREATIVE MANAGEMENT 04/29/2013 ROEL MENG GODWIN 799.81 DECREASED LIBIDO 04/29/2013 GODWIN SEVILLA APRN V26.9 PROCREATIVE MANAGEMENT 04/29/2013 LISA MENG, FLO L 799.81 DECREASED LIBIDO 04/29/2013 BRYANL THIOKOL OPERATOR, FLO L V26.9 PROCREATIVE MANAGEMENT 04/29/2013 ROEL MENG GODWIN 799.81 DECREASED LIBIDO 04/29/2013 ROEL THIOKOL OPERATOR, GODWIN V26.9 PROCREATIVE MANAGEMENT 04/29/2013 ROEL THIOKOL OPERATOR, GODWIN 799.81 DECREASED LIBIDO 04/29/2013 ROEL THIOKOL OPERATOR, GODWIN V26.9 PROCREATIVE MANAGEMENT 04/29/2013 MADL THIOKOL OPERATOR, FLO L 799.81 DECREASED LIBIDO 04/29/2013 MADL THIOKOL OPERATOR, FLO L V26.9 PROCREATIVE MANAGEMENT 04/29/2013 MADL THIOKOL OPERATOR, FLO L 799.81 DECREASED LIBIDO 04/29/2013 MADL THIOKOL OPERATOR, FLO L V26.9 PROCREATIVE MANAGEMENT 04/29/2013 ROEL THIOKOL OPERATOR, GODWIN 799.81 DECREASED LIBIDO 04/29/2013 ROEL THIOKOL OPERATOR, GODWIN V26.9 PROCREATIVE MANAGEMENT 04/29/2013 SONNY THIOKOL OPERATOR, ELIAS A 799.81 DECREASED LIBIDO 04/29/2013 SONNY THIOKOL OPERATOR, ELIAS A V26.9 PROCREATIVE MANAGEMENT 04/29/2013 [facility], [place] R 799.81 DECREASED LIBIDO 04/29/2013 [facility], DEM[place] R V26.9 PROCREATIVE MANAGEMENT 04/29/2013 MADL THIOKOL OPERATOR, FLO L 799.81 DECREASED LIBIDO 04/29/2013 MADL THIOKOL OPERATOR, FLO L V26.9 PROCREATIVE MANAGEMENT 04/29/2013 SILVERIO DDS, JOSE 799.81 DECREASED LIBIDO 04/29/2013 SILVERIO DDS, JOSE V26.9 PROCREATIVE MANAGEMENT 04/29/2013 [facility], [place] R 799.81 DECREASED LIBIDO 04/29/2013 [facility], DEMOND R V26.9 PROCREATIVE MANAGEMENT 04/29/2013 [facility], DEM[place] R 799.81 DECREASED LIBIDO 04/29/2013 [facility], DEM[place] R V26.9 PROCREATIVE MANAGEMENT 04/29/2013 ROEL THIOKOL OPERATOR, GODWIN 799.81 DECREASED LIBIDO 04/29/2013 ROEL THIOKOL OPERATOR, GODWIN V26.9 PROCREATIVE MANAGEMENT 04/29/2013 MANUEL DO, NICOLA K 799.81 DECREASED LIBIDO 04/29/2013 MANUEL DO, NICOLA K V26.9 PROCREATIVE MANAGEMENT 04/29/2013 ROEL THIOKOL OPERATOR, GODWIN 799.81 DECREASED LIBIDO 04/29/2013 ROEL THIOKOL OPERATOR, GODWIN V26.9 PROCREATIVE MANAGEMENT 04/29/2013 ROEL THIOKOL OPERATOR, GODWIN 799.81 DECREASED LIBIDO 04/29/2013 ROEL THIOKOL OPERATOR, GODWIN V26.9 PROCREATIVE MANAGEMENT 04/30/2013 MEJIA JONES, YAW R Ot 338.29 OTHER CHRONIC PAIN 04/30/2013 MEJIA JONES, YAW R Ot 724.2 LUMBAGO 05/17/2013 338.29 CHRONIC PAIN 05/17/2013 MANUEL DOMARALA K 338.29 CHRONIC PAIN 05/17/2013 JASON HUNTER APRN 338.29 CHRONIC PAIN 05/17/2013 WOLF JAMA MD 338.29 CHRONIC PAIN 05/17/2013 MANUEL DONICOLA K 338.29 CHRONIC PAIN 05/17/2013 IDALIA JENKINSS, KELY Dickens 338.29 CHRONIC PAIN 05/17/2013 JASON HUNTER APRN 338.29 CHRONIC PAIN 05/17/2013 JASON HUNTER APRN 338.29 CHRONIC PAIN 05/17/2013 JASON HUNTER APRN 338.29 CHRONIC PAIN 05/17/2013 WOLF JAMA MD 338.29 CHRONIC PAIN 05/17/2013 ROEL THIOKOL OPERATOR, GODWIN 338.29 CHRONIC PAIN 05/17/2013 BRYANL THIOKOL OPERATOR, FLO L 338.29 CHRONIC PAIN 05/17/2013 ROEL THIOKOL OPERATOR, GODWIN 338.29 CHRONIC PAIN 05/17/2013 MADL THIOKOL OPERATOR, FLO L 338.29 CHRONIC PAIN 05/17/2013 ROEL THIOKOL OPERATOR, GODWIN 338.29 CHRONIC PAIN 05/17/2013 ROEL THIOKOL OPERATOR, GODWIN 338.29 CHRONIC PAIN 05/17/2013 MADL THIOKOL OPERATOR, FLO L 338.29 CHRONIC PAIN 05/17/2013 MADL THIOKOL OPERATOR, FLO L 338.29 CHRONIC PAIN 05/17/2013 ROEL THIOKOL OPERATOR, GOWDIN 338.29 CHRONIC PAIN 05/17/2013 ELIAS DENNIS APRN 338.29 CHRONIC PAIN 05/17/2013 ANGELA [facility], DEMOND Fernando 338.29 CHRONIC PAIN 05/17/2013 MADL THIOKOL OPERATOR, FLO L 338.29 CHRONIC PAIN 05/17/2013 NUSRAT JENKINSS, JOSE 338.29 CHRONIC PAIN 05/17/2013 [facility], DEMOND R 338.29 CHRONIC PAIN 05/17/2013 [facility], DEMOND R 338.29 CHRONIC PAIN 05/17/2013 ROEL THIOKOL OPERATOR, GODWIN 338.29 CHRONIC PAIN 05/17/2013 MANUEL DO, NICOLA K 338.29 CHRONIC PAIN 05/17/2013 ROEL THIOKOL OPERATOR, GODWIN 338.29 CHRONIC PAIN 05/17/2013 ROEL THIOKOL OPERATOR, GODWIN 338.29 CHRONIC PAIN 06/22/2013 V70.5 HEALTH EXAMINATION OF DEFINED SUBPOPULATIONS 06/22/2013 MANUEL DO, NICOLA K V70.5 HEALTH EXAMINATION OF DEFINED SUBPOPULATIONS 06/22/2013 JASON HUNTER APRN V70.5 HEALTH EXAMINATION OF DEFINED SUBPOPULATIONS 06/22/2013 WOLF JAMA MD V70.5 HEALTH EXAMINATION OF DEFINED SUBPOPULATIONS 06/22/2013 MANUEL DO, NICOLA K V70.5 HEALTH EXAMINATION OF DEFINED SUBPOPULATIONS 06/22/2013 IDALIA JENKINSS, KELY J V70.5 HEALTH EXAMINATION OF DEFINED SUBPOPULATIONS 06/22/2013 JASON HUNTER APRN V70.5 HEALTH EXAMINATION OF DEFINED SUBPOPULATIONS 06/22/2013 JASON HUNTER APRN V70.5 HEALTH EXAMINATION OF DEFINED SUBPOPULATIONS 06/22/2013 JASON HUNTER APRN V70.5 HEALTH EXAMINATION OF DEFINED SUBPOPULATIONS 06/22/2013 WOLF JAMA MD V70.5 HEALTH EXAMINATION OF DEFINED SUBPOPULATIONS 06/22/2013 ROEL THIOKOL OPERATOR, GODWIN V70.5 HEALTH EXAMINATION OF DEFINED SUBPOPULATIONS 06/22/2013 MADL THIOKOL OPERATOR, FLO L V70.5 HEALTH EXAMINATION OF DEFINED SUBPOPULATIONS 06/22/2013 ROEL THIOKOL OPERATOR, GODWIN V70.5 HEALTH EXAMINATION OF DEFINED SUBPOPULATIONS 06/22/2013 MADL THIOKOL OPERATOR, FLO L V70.5 HEALTH EXAMINATION OF DEFINED SUBPOPULATIONS 06/22/2013 ROEL THIOKOL OPERATOR, GODWIN V70.5 HEALTH EXAMINATION OF DEFINED SUBPOPULATIONS 06/22/2013 ROEL THIOKOL OPERATOR, GODWIN V70.5 HEALTH EXAMINATION OF DEFINED SUBPOPULATIONS 06/22/2013 MADL THIOKOL OPERATOR, FLO L V70.5 HEALTH EXAMINATION OF DEFINED SUBPOPULATIONS 06/22/2013 MADL THIOKOL OPERATOR, FLO L V70.5 HEALTH EXAMINATION OF DEFINED SUBPOPULATIONS 06/22/2013 ROEL THIOKOL OPERATOR, GODWIN V70.5 HEALTH EXAMINATION OF DEFINED SUBPOPULATIONS 06/22/2013 SONNYELIAS Kirkpatrick APRN A V70.5 HEALTH EXAMINATION OF DEFINED SUBPOPULATIONS 06/22/2013 [facility], DEMOND R V70.5 HEALTH EXAMINATION OF DEFINED SUBPOPULATIONS 06/22/2013 MADL THIOKOL OPERATOR, FLO L V70.5 HEALTH EXAMINATION OF DEFINED SUBPOPULATIONS 06/22/2013 JOSE SILVERIO DDS V70.5 HEALTH EXAMINATION OF DEFINED SUBPOPULATIONS 06/22/2013 [facility], DEMOND R V70.5 HEALTH EXAMINATION OF DEFINED SUBPOPULATIONS 06/22/2013 [facility], DEMOND R V70.5 HEALTH EXAMINATION OF DEFINED SUBPOPULATIONS 06/22/2013 ROEL THIOKOL OPERATOR, GODWIN V70.5 HEALTH EXAMINATION OF DEFINED SUBPOPULATIONS 06/22/2013 NICOLA MANUEL DO V70.5 HEALTH EXAMINATION OF DEFINED SUBPOPULATIONS 06/22/2013 ROEL THIOKOL OPERATOR, GODWIN V70.5 HEALTH EXAMINATION OF DEFINED SUBPOPULATIONS 06/22/2013 ROEL THIOKOL OPERATOR, GODWIN V70.5 HEALTH EXAMINATION OF DEFINED SUBPOPULATIONS 07/04/2013 NICOLA MANUEL DO 296.30 MO DEPRESSIVE RECURRENT UNSPECIFIED 07/04/2013 JASON HUNTER APRN 296.30 MO DEPRESSIVE RECURRENT UNSPECIFIED 07/04/2013 WOLF JAMA MD 296.30 MO DEPRESSIVE RECURRENT UNSPECIFIED 07/04/2013 MANUEL NICOLA BLANTON 296.30 MO DEPRESSIVE RECURRENT UNSPECIFIED 07/04/2013 KELY FRIEDMAN DDS 296.30 MO DEPRESSIVE RECURRENT UNSPECIFIED 07/04/2013 JASON HUNTER APRN 296.30 MO DEPRESSIVE RECURRENT UNSPECIFIED 07/04/2013 JASON HUNTER APRN 296.30 MO DEPRESSIVE RECURRENT UNSPECIFIED 07/04/2013 JASON HUNTER APRN 296.30 MO DEPRESSIVE RECURRENT UNSPECIFIED 07/04/2013 WOLF JAMA MD 296.30 MO DEPRESSIVE RECURRENT UNSPECIFIED 07/04/2013 ROELSAM MENG GODWIN 296.30 MO DEPRESSIVE RECURRENT UNSPECIFIED 07/04/2013 FLO GONZALEZ APRN L 296.30 MO DEPRESSIVE RECURRENT UNSPECIFIED 07/04/2013 ROEL THIOKOL OPERATOR, GODWIN 296.30 MO DEPRESSIVE RECURRENT UNSPECIFIED 07/04/2013 MADL THIOKOL OPERATOR, FLO L 296.30 MO DEPRESSIVE RECURRENT UNSPECIFIED 07/04/2013 ROEL THIOKOL OPERATOR, GODWIN 296.30 MO DEPRESSIVE RECURRENT UNSPECIFIED 07/04/2013 ROEL THIOKOL OPERATOR, GODWIN 296.30 MO DEPRESSIVE RECURRENT UNSPECIFIED 07/04/2013 MADL THIOKOL OPERATOR, FLO L 296.30 MO DEPRESSIVE RECURRENT UNSPECIFIED 07/04/2013 MADL THIOKOL OPERATOR, FLO L 296.30 MO DEPRESSIVE RECURRENT UNSPECIFIED 07/04/2013 ROEL THIOKOL OPERATOR, GODWIN 296.30 MO DEPRESSIVE RECURRENT UNSPECIFIED 07/04/2013 SONNY THIOKOL OPERATOR, ELIAS A 296.30 MO DEPRESSIVE RECURRENT UNSPECIFIED 07/04/2013 [facility], DEMOND R 296.30 MO DEPRESSIVE RECURRENT UNSPECIFIED 07/04/2013 MADL THIOKOL OPERATOR, FLO L 296.30 MO DEPRESSIVE RECURRENT UNSPECIFIED 07/04/2013 JOSE SILVERIO DDS 296.30 MO DEPRESSIVE RECURRENT UNSPECIFIED 07/04/2013 [facility], DEMOND R 296.30 MO DEPRESSIVE RECURRENT UNSPECIFIED 07/04/2013 [facility], DEMOND R 296.30 MO DEPRESSIVE RECURRENT UNSPECIFIED 07/04/2013 ROEL THIOKOL OPERATOR, GODWIN 296.30 MO DEPRESSIVE RECURRENT UNSPECIFIED 07/04/2013 NICOLA MANUEL DO 296.30 MO DEPRESSIVE RECURRENT UNSPECIFIED 07/04/2013 ROEL THIOKOL OPERATOR, GODWIN 296.30 MO DEPRESSIVE RECURRENT UNSPECIFIED 07/04/2013 ROEL THIOKOL OPERATOR, GODWIN 296.30 MO DEPRESSIVE RECURRENT UNSPECIFIED 08/14/2013 [...] MD V23.9 , HIGH-RISK (UNSPEC) 08/14/2013 ROEL THIOKOL OPERATOR, GODWIN V23.9 , HIGH-RISK (UNSPEC) 08/14/2013 MADL THIOKOL OPERATOR, FLO L V23.9 , HIGH-RISK (UNSPEC) 08/14/2013 ROEL THIOKOL OPERATOR, GODWIN V23.9 , HIGH-RISK (UNSPEC) 08/14/2013 MADL THIOKOL OPERATOR, FLO L V23.9 , HIGH-RISK (UNSPEC) 08/14/2013 ROEL THIOKOL OPERATOR, GODWIN V23.9 , HIGH-RISK (UNSPEC) 08/14/2013 ROEL THIOKOL OPERATOR, GODWIN V23.9 , HIGH-RISK (UNSPEC) 08/14/2013 MADL THIOKOL OPERATOR, FLO L V23.9 , HIGH-RISK (UNSPEC) 08/14/2013 MADL THIOKOL OPERATOR, FLO L V23.9 , HIGH-RISK (UNSPEC) 08/14/2013 ROEL THIOKOL OPERATOR, GODWIN V23.9 , HIGH-RISK (UNSPEC) 08/14/2013 SONNY MENG, ELIAS A V23.9 , HIGH-RISK (UNSPEC) 08/14/2013 [facility], DEMOND R V23.9 , HIGH-RISK (UNSPEC) 08/14/2013 MADL THIOKOL OPERATOR, FLO L V23.9 , HIGH-RISK (UNSPEC) 08/14/2013 JOSE SILVERIO DDS V23.9 , HIGH-RISK (UNSPEC) 08/14/2013 [facility], DEMOND R V23.9 , HIGH-RISK (UNSPEC) 08/14/2013 [facility], DEMOND R V23.9 , HIGH-RISK (UNSPEC) 08/14/2013 ROEL THIOKOL OPERATOR, GODWIN V23.9 , HIGH-RISK (UNSPEC) 08/14/2013 NICOLA MANUEL DO V23.9 , HIGH-RISK (UNSPEC) 08/14/2013 ROEL THIOKOL OPERATOR, GODWIN V23.9 , HIGH-RISK (UNSPEC) 08/14/2013 ROEL THIOKOL OPERATOR, GODWIN V23.9 , HIGH-RISK (UNSPEC) 09/11/2013 WOLF JAMA MD 788.1 DYSURIA 09/11/2013 NICOLA MANUEL DO K 788.1 DYSURIA 09/11/2013 IDALIA BAKER, KLEY Dickens 788.1 DYSURIA 09/11/2013 GARTON THIOKOL OPERATORJASON Kirkpatrick D 788.1 DYSURIA 09/11/2013 GARMYRA THIOKOL OPERATORJASON Kirkpatrick D 788.1 DYSURIA 09/11/2013 GARTON THIOKOL OPERATOR, JASON D 788.1 DYSURIA 09/11/2013 WOLF JAMA MD 788.1 DYSURIA 09/11/2013 ROEL THIOKOL OPERATOR, GODWIN 788.1 DYSURIA 09/11/2013 MADL THIOKOL OPERATOR, FLO L 788.1 DYSURIA 09/11/2013 ROEL THIOKOL OPERATOR, GODWIN 788.1 DYSURIA 09/11/2013 MADL THIOKOL OPERATOR, FLO L 788.1 DYSURIA 09/11/2013 ROEL THIOKOL OPERATOR, GODWIN 788.1 DYSURIA 09/11/2013 ROEL THIOKOL OPERATOR, GODWIN 788.1 DYSURIA 09/11/2013 MADL THIOKOL OPERATOR, FLO L 788.1 DYSURIA 09/11/2013 MADL THIOKOL OPERATOR, FLO L 788.1 DYSURIA 09/11/2013 ROEL THIOKOL OPERATOR, GODWIN 788.1 DYSURIA 09/11/2013 SONNYKENJI MENG, ELIAS A 788.1 DYSURIA 09/11/2013 [facility], DEMOND R 788.1 DYSURIA 09/11/2013 MADL THIOKOL OPERATOR, FLO L 788.1 DYSURIA 09/11/2013 JOSE SILVERIO DDS 788.1 DYSURIA 09/11/2013 [facility], DEMOND R 788.1 DYSURIA 09/11/2013 [facility], DEMOND R 788.1 DYSURIA 09/11/2013 ROEL THIOKOL OPERATOR, GODWIN 788.1 DYSURIA 09/11/2013 NICOLA MANUEL DO K 788.1 DYSURIA 09/11/2013 ROEL THIOKOL OPERATOR, GODWIN 788.1 DYSURIA 09/11/2013 ROEL GODWIN MENG 788.1 DYSURIA 11/13/2013 JENNIFER MAYES MD Ot [...] Ot 658.41 AMNIOTIC INFECTION-DELIV 03/26/2014 JENNIFER MAYES MD, Ot V06.1 [id number], COMBINED [ 03/26/2014 JENNIFER MAYES MD, Ot V06.5 TETANUS-DIPHTHERIA [TD][DT] 03/26/2014 JENNIFER MAYES MD Ot V27.0 DELIVER-SINGLE LIVEBORN 05/01/2014 MIGDALIA RAMON DO Ot 599.0 URIN TRACT INFECTION NOS 05/01/2014 YENNY MIGDALIA BLANTON Ot 724.5 BACKACHE NOS 05/27/2014 MADL THIOKOL OPERATOR, FLO L 724.2 BACK PAIN, LOWER 05/27/2014 ROEL THIOKOL OPERATOR, GODWIN 724.2 BACK PAIN, LOWER 05/27/2014 MADL THIOKOL OPERATOR, FLO L 724.2 BACK PAIN, LOWER 05/27/2014 ROEL THIOKOL OPERATOR, GODWIN 724.2 BACK PAIN, LOWER 05/27/2014 ROEL THIOKOL OPERATOR, GODWIN 724.2 BACK PAIN, LOWER 05/27/2014 MADL THIOKOL OPERATOR, FLO L 724.2 BACK PAIN, LOWER 05/27/2014 MADL THIOKOL OPERATOR, FLO L 724.2 BACK PAIN, LOWER 05/27/2014 ROEL THIOKOL OPERATOR, GODWIN 724.2 BACK PAIN, LOWER 05/27/2014 SONNY THIOKOL OPERATOR, ELIAS A 724.2 BACK PAIN, LOWER 05/27/2014 [facility] 724.2 BACK PAIN, LOWER 05/27/2014 MADL THIOKOL OPERATOR, FLO L 724.2 BACK PAIN, LOWER 05/27/2014 NUSRAT DDS, JOSE 724.2 BACK PAIN, LOWER 05/27/2014 [facility], DEMOND R 724.2 BACK PAIN, LOWER 05/27/2014 [facility], DEMOND R 724.2 BACK PAIN, LOWER 05/27/2014 ROEL THIOKOL OPERATOR, GODWIN 724.2 BACK PAIN, LOWER 05/27/2014 NICOLA MANUEL DO 724.2 BACK PAIN, LOWER 05/27/2014 ROEL THIOKOL OPERATOR, GODWIN 724.2 BACK PAIN, LOWER 05/27/2014 ROEL THIOKOL OPERATOR, GODWIN 724.2 BACK PAIN, LOWER 06/05/2014 IVONNE JONES, REZA Steel Ot 490 BRONCHITIS NOS 06/05/2014 REZA CORONADO MD Ot 786.2 COUGH 06/10/2014 ROEL MENG, GODWIN 296.35 MO DEPRESSIVE RECURRENT IN PART OR UNSPECIFIED REMISSION 06/10/2014 ROEL MENG GODWIN 300.02 AN GEN ANXIETY 06/10/2014 MADL THIOKOL OPERATOR, FLO L 296.35 MO DEPRESSIVE RECURRENT IN PART OR UNSPECIFIED REMISSION 06/10/2014 BRYANTima THIOKOL OPERATOR, FLO L 300.02 AN GEN ANXIETY 06/10/2014 ROEL MENG GODWIN 296.35 MO DEPRESSIVE RECURRENT IN PART OR UNSPECIFIED REMISSION 06/10/2014 ROEL MENG GODWIN 300.02 AN GEN ANXIETY 06/10/2014 ROEL THIOKOL OPERATOR, OGDWIN 296.35 MO DEPRESSIVE RECURRENT IN PART OR UNSPECIFIED REMISSION 06/10/2014 ROEL MENG GODWIN 300.02 AN GEN ANXIETY 06/10/2014 MADL THIOKOL OPERATOR, FLO L 296.35 MO DEPRESSIVE RECURRENT IN PART OR UNSPECIFIED REMISSION 06/10/2014 MADL THIOKOL OPERATOR, FLO L 300.02 AN GEN ANXIETY 06/10/2014 MADL THIOKOL OPERATOR, FLO L 296.35 MO DEPRESSIVE RECURRENT IN PART OR UNSPECIFIED REMISSION 06/10/2014 BRYANL THIOKOL OPERATOR, FLO L 300.02 AN GEN ANXIETY 06/10/2014 MICHAEL SEVILLA APRNETTE 296.35 MO DEPRESSIVE RECURRENT IN PART OR UNSPECIFIED REMISSION 06/10/2014 ROEL MENG OGDWIN 300.02 AN GEN ANXIETY 06/10/2014 SONNYKENJI MENG ELIAS A 296.35 MO DEPRESSIVE RECURRENT IN PART OR UNSPECIFIED REMISSION 06/10/2014 SONNY MENG ELIAS A 300.02 AN GEN ANXIETY 06/10/2014 [facility], DEMOND R 296.35 MO DEPRESSIVE RECURRENT IN PART OR UNSPECIFIED REMISSION 06/10/2014 [facility], DEMOND R 300.02 AN GEN ANXIETY 06/10/2014 LISA THIOKOL OPERATOR, FLO L 296.35 MO DEPRESSIVE RECURRENT IN PART OR UNSPECIFIED REMISSION 06/10/2014 LISA THIOKOL OPERATOR, FLO L 300.02 AN GEN ANXIETY 06/10/2014 NUSRAT JENKINSSJOSE 296.35 MO DEPRESSIVE RECURRENT IN PART OR UNSPECIFIED REMISSION 06/10/2014 SILVERIOJOSE OLEA DDS 300.02 AN GEN ANXIETY 06/10/2014 [facility], DEMOND R 296.35 MO DEPRESSIVE RECURRENT IN PART OR UNSPECIFIED REMISSION 06/10/2014 [facility], DEMOND R 300.02 AN GEN ANXIETY 06/10/2014 [facility], DEMOND R 296.35 MO DEPRESSIVE RECURRENT IN PART OR UNSPECIFIED REMISSION 06/10/2014 [facility], DEMOND R 300.02 AN GEN ANXIETY 06/10/2014 ROEL THIOKOL OPERATOR, GODWIN 296.35 MO DEPRESSIVE RECURRENT IN PART OR UNSPECIFIED REMISSION 06/10/2014 ROEL THIOKOL OPERATOR, GODWIN 300.02 AN GEN ANXIETY 06/10/2014 NICOLA MANUEL DO K 296.35 MO DEPRESSIVE RECURRENT IN PART OR UNSPECIFIED REMISSION 06/10/2014 NICOLA MANUEL DO 300.02 AN GEN ANXIETY 06/10/2014 ROEL THIOKOL OPERATOR, GODWIN 296.35 MO DEPRESSIVE RECURRENT IN PART OR UNSPECIFIED REMISSION 06/10/2014 ROEL THIOKOL OPERATOR, GODWIN 300.02 AN GEN ANXIETY 06/10/2014 ROEL THIOKOL OPERATOR, GODWIN 296.35 MO DEPRESSIVE RECURRENT IN PART OR UNSPECIFIED REMISSION 06/10/2014 ROEL THIOKOL OPERATOR, GODWIN 300.02 AN GEN ANXIETY 07/04/2014 MADL THIOKOL OPERATOR, FLO L 782.7 SPONTANEOUS ECCHYMOSES 07/04/2014 ROEL THIOKOL OPERATOR, GODWIN 782.7 SPONTANEOUS ECCHYMOSES 07/04/2014 ROEL THIOKOL OPERATOR, GODWIN 782.7 SPONTANEOUS ECCHYMOSES 07/04/2014 MADL THIOKOL OPERATOR, FLO L 782.7 SPONTANEOUS ECCHYMOSES 07/04/2014 MADL THIOKOL OPERATOR, FLO L 782.7 SPONTANEOUS ECCHYMOSES 07/04/2014 ROEL THIOKOL OPERATOR, GODWIN 782.7 SPONTANEOUS ECCHYMOSES 07/04/2014 SONNY MENG ELIAS A 782.7 SPONTANEOUS ECCHYMOSES 07/04/2014 [facility], DEMOND R 782.7 SPONTANEOUS ECCHYMOSES 07/04/2014 MADL THIOKOL OPERATOR, FLO L 782.7 SPONTANEOUS ECCHYMOSES 07/04/2014 JOSE SILVERIO DDS 782.7 SPONTANEOUS ECCHYMOSES 07/04/2014 [facility], DEMOND R 782.7 SPONTANEOUS ECCHYMOSES 07/04/2014 [facility], DEMOND R 782.7 SPONTANEOUS ECCHYMOSES 07/04/2014 ROEL THIOKOL OPERATOR, GODWIN 782.7 SPONTANEOUS ECCHYMOSES 07/04/2014 NICOLA MANUEL DO 782.7 SPONTANEOUS ECCHYMOSES 07/04/2014 OREL THIOKOL OPERATOR, GODWIN 782.7 SPONTANEOUS ECCHYMOSES 07/04/2014 ROEL THIOKOL OPERATOR, GODWIN 782.7 SPONTANEOUS ECCHYMOSES 08/04/2014 ISMAEL SOL APRN Ot 724.5 BACKACHE NOS 08/04/2014 ISMAEL SOL APRN Ot E000.8 OTHER EXTERNAL CAUSE STATUS 08/04/2014 ISMAEL SOL APRN Ot E849.6 ACCIDENT IN PUBLIC BLDG 08/04/2014 ISMAEL SOL APRN Ot E885.9 FALL FROM SLIPPING, TRIPPING, OR STUMBLI 09/16/2014 MADL THIOKOL OPERATOR, FLO L 783.21 LOSS OF WEIGHT 09/16/2014 MADL THIOKOL OPERATOR, FLO L 789.00 ABDOMINAL PAIN UNSPECIFIED SITE 09/16/2014 MADL THIOKOL OPERATOR, FLO L 789.01 ABDOMINAL PAIN RIGHT UPPER QUADRANT 09/16/2014 MADL THIOKOL OPERATOR, FLO L 789.06 ABDOMINAL PAIN EPIGASTRIC 09/16/2014 MADL THIOKOL OPERATOR, FLO L 783.21 LOSS OF WEIGHT 09/16/2014 MADL THIOKOL OPERATOR, FLO L 789.00 ABDOMINAL PAIN UNSPECIFIED SITE 09/16/2014 MADL THIOKOL OPERATOR, FLO L 789.01 ABDOMINAL PAIN RIGHT UPPER QUADRANT 09/16/2014 MADL THIOKOL OPERATOR, FLO L 789.06 ABDOMINAL PAIN EPIGASTRIC 09/16/2014 ROEL THIOKOL OPERATOR, GODWIN 783.21 LOSS OF WEIGHT 09/16/2014 ROEL THIOKOL OPERATOR, GODWIN 789.00 ABDOMINAL PAIN UNSPECIFIED SITE 09/16/2014 ROEL THIOKOL OPERATOR, GODWIN 789.01 ABDOMINAL PAIN RIGHT UPPER QUADRANT 09/16/2014 ROEL THIOKOL OPERATOR, GODWIN 789.06 ABDOMINAL PAIN EPIGASTRIC 09/16/2014 SONNY APRN, ELIAS A 783.21 LOSS OF WEIGHT 09/16/2014 SONNY APRN, ELIAS A 789.00 ABDOMINAL PAIN UNSPECIFIED SITE 09/16/2014 SONNY APRN, ELIAS A 789.01 ABDOMINAL PAIN RIGHT UPPER QUADRANT 09/16/2014 SONNY MENG ELIAS A 789.06 ABDOMINAL PAIN EPIGASTRIC 09/16/2014 [facility], DEMOND R 783.21 LOSS OF WEIGHT 09/16/2014 ANGELA LSCS, DEMOND R 789.00 ABDOMINAL PAIN UNSPECIFIED SITE 09/16/2014 ANGELA LSCS, DEMOND R 789.01 ABDOMINAL PAIN RIGHT UPPER QUADRANT 09/16/2014 ANGELA LSCS, DEMOND R 789.06 ABDOMINAL PAIN EPIGASTRIC 09/16/2014 MADL THIOKOL OPERATOR, FLO L 783.21 LOSS OF WEIGHT 09/16/2014 MADL THIOKOL OPERATOR, FLO L 789.00 ABDOMINAL PAIN UNSPECIFIED SITE 09/16/2014 MADL THIOKOL OPERATOR, FLO L 789.01 ABDOMINAL PAIN RIGHT UPPER QUADRANT 09/16/2014 MADL THIOKOL OPERATOR, FLO L 789.06 ABDOMINAL PAIN EPIGASTRIC 09/16/2014 [...] R 789.06 ABDOMINAL PAIN EPIGASTRIC 09/16/2014 ROEL THIOKOL OPERATOR, GODWIN 783.21 LOSS OF WEIGHT 09/16/2014 ROEL THIOKOL OPERATOR, GODWIN 789.00 ABDOMINAL PAIN UNSPECIFIED SITE 09/16/2014 ROEL THIOKOL OPERATOR, GODWIN 789.01 ABDOMINAL PAIN RIGHT UPPER QUADRANT 09/16/2014 ROEL THIOKOL OPERATOR, GODWIN 789.06 ABDOMINAL PAIN EPIGASTRIC 09/16/2014 MAR DO, NICOLA K 783.21 LOSS OF WEIGHT 09/16/2014 MAR DOMARALA K 789.00 ABDOMINAL PAIN UNSPECIFIED SITE 09/16/2014 MAR DOMARALA K 789.01 ABDOMINAL PAIN RIGHT UPPER QUADRANT 09/16/2014 MAR BLANTON, NICOLA K 789.06 ABDOMINAL PAIN EPIGASTRIC 09/16/2014 ROEL THIOKOL OPERATOR, GODWIN 783.21 LOSS OF WEIGHT 09/16/2014 ROEL THIOKOL OPERATOR, GODWIN 789.00 ABDOMINAL PAIN UNSPECIFIED SITE 09/16/2014 ROEL THIOKOL OPERATOR, GODWIN 789.01 ABDOMINAL PAIN RIGHT UPPER QUADRANT 09/16/2014 ROEL THIOKOL OPERATOR, GODWIN 789.06 ABDOMINAL PAIN EPIGASTRIC 09/16/2014 ROEL THIOKOL OPERATOR, GODWIN 783.21 LOSS OF WEIGHT 09/16/2014 ROEL THIOKOL OPERATOR, GODWIN 789.00 ABDOMINAL PAIN UNSPECIFIED SITE 09/16/2014 ROEL THIOKOL OPERATOR, GODWIN 789.01 ABDOMINAL PAIN RIGHT UPPER QUADRANT 09/16/2014 ROEL THIOKOL OPERATOR, GODWIN 789.06 ABDOMINAL PAIN EPIGASTRIC 09/19/2014 SUNITA [...] APRN A V58.69 MEDICATION HIGH RISK 10/17/2014 [facility], DEMOND R 312.30 I IMPULSE CONTROL DISORDER NOS 10/17/2014 [facility], DEMOND R V58.69 MEDICATION HIGH RISK 10/17/2014 FLO GONZALEZ APRN 312.30 I IMPULSE CONTROL DISORDER NOS 10/17/2014 NARAYAN GONZALEZ APRNWNYA L V58.69 MEDICATION HIGH RISK 10/17/2014 SILVERIO DDS, JOSE 312.30 I IMPULSE CONTROL DISORDER NOS 10/17/2014 SILVERIO DDS, JOSE V58.69 MEDICATION HIGH RISK 10/17/2014 [facility], DEMOND R 312.30 I IMPULSE CONTROL DISORDER NOS 10/17/2014 [facility], DEMOND R V58.69 MEDICATION HIGH RISK 10/17/2014 [facility], DEMOND R 312.30 I IMPULSE CONTROL DISORDER NOS 10/17/2014 [facility], DEMOND R V58.69 MEDICATION HIGH RISK 10/17/2014 ROEL THIOKOL OPERATOR, GODWIN 312.30 I IMPULSE CONTROL DISORDER NOS 10/17/2014 ROEL THIOKOL OPERATOR, GODWIN V58.69 MEDICATION HIGH RISK 10/17/2014 MANUEL DO NICOLA K 312.30 I IMPULSE CONTROL DISORDER NOS 10/17/2014 MANUEL DO NICOLA K V58.69 MEDICATION HIGH RISK 10/17/2014 ROEL THIOKOL OPERATOR, GODWIN 312.30 I IMPULSE CONTROL DISORDER NOS 10/17/2014 ROEL THIOKOL OPERATOR, GODWIN V58.69 MEDICATION HIGH RISK 10/17/2014 ROEL THIOKOL OPERATOR, GODWIN 312.30 I IMPULSE CONTROL DISORDER NOS 10/17/2014 ROEL THIOKOL OPERATOR, GODWIN V58.69 MEDICATION HIGH RISK 10/31/2014 [facility], DEMOND R 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 10/31/2014 MADL THIOKOL OPERATOR, FLO L 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 10/31/2014 SILVERIO DDS, JOSE 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 10/31/2014 [facility], DEMOND R 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 10/31/2014 [facility], DEMOND R 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 10/31/2014 ROEL THIOKOL OPERATOR, GODWIN 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 10/31/2014 MANUEL DO NICOLA K 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 10/31/2014 ROEL THIOKOL OPERATOR, GODWIN 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 10/31/2014 ROEL THIOKOL OPERATOR, GODWIN 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 11/10/2014 MADL THIOKOL OPERATOR, FLO L 785.1 PALPITATIONS 11/10/2014 SILVERIO DDS, JOSE 785.1 PALPITATIONS 11/10/2014 [facility], DEMOND R 785.1 PALPITATIONS 11/10/2014 [facility], DEMOND R 785.1 PALPITATIONS 11/10/2014 ROEL THIOKOL OPERATOR, GODWIN 785.1 PALPITATIONS 11/10/2014 MANUEL NICOLA BLANTON K 785.1 PALPITATIONS 11/10/2014 ROEL THIOKOL OPERATOR, GODWIN 785.1 PALPITATIONS 11/10/2014 ROEL THIOKOL OPERATOR, GODWIN 785.1 PALPITATIONS 11/28/2014 FLO GONZALEZ MATERIAL CONTROL SPECIALIST Ot 785.1 11/28/2014 ISMAEL SOL THIOKOL OPERATOR Ot 521.00 UNSPEC DENTAL CARIES 11/28/2014 ISMAEL SOL THIOKOL OPERATOR Ot 525.9 DENTAL DISORDER NOS 12/09/2014 ISMAEL SOL APRN Ot 785.1 PALPITATIONS 12/18/2014 NICOLA MANUEL DO K V15.82 NICOTINE ABUSE 12/18/2014 ROEL MENG GODWIN V15.82 NICOTINE ABUSE 12/18/2014 ROEL TAQUERIA, GODWIN V15.82 NICOTINE ABUSE 01/01/2015 FLO GONZALEZ MATERIAL CONTROL SPECIALIST Ot 785.1 01/21/2015 Ot 521.00 UNSPEC DENTAL CARIES 01/21/2015 Ot 523.10 CHRONIC GINGIVITIS, PLAQUE INDUCED 01/21/2015 Ot 525.9 DENTAL DISORDER NOS 01/23/2015 ROEL MENG GODWIN 296.64 MO BIPOLAR I MIXED W PSYCHOTIC BEHAVIOR 01/23/2015 MICHAEL SEVILLA APRNETTE 296.64 MO BIPOLAR I MIXED W PSYCHOTIC BEHAVIOR 02/25/2015 FLO GONZALEZ L MATERIAL CONTROL SPECIALIST Ot 785.1 PALPITATIONS 05/18/2015 Ot 427.9 05/18/2015 EVITA JONES, WOLF Carmona Ot 596.59 05/18/2015 EVITA JONES, WOLF Carmona Ot 724.2 05/18/2015 EVITA JONES, WOLF Carmona Ot 729.5 05/18/2015 GERBER JONES, JENNIFER Altamirano Ot 240.9 05/18/2015 GERBER JONES, JENNIFER Altamirano Ot 789.01 05/18/2015 FLO GONZALEZ MATERIAL CONTROL SPECIALIST Ot 724.2 05/18/2015 MADLFLO MATERIAL CONTROL SPECIALIST Ot 785.1 05/18/2015 Ot 427.9 05/18/2015 EVITA JONES, WOLF Carmona Ot 596.59 05/18/2015 EVITA JONES, WOLF Carmona Ot 724.2 05/18/2015 EVITA JONES, WOLF Carmona Ot 729.5 05/18/2015 JENNIFER MAYES MD Ot 240.9 05/18/2015 GERBER JONES, JENNIFER Altamirano Ot 789.01 05/18/2015 MADLFLO MATERIAL CONTROL SPECIALIST Ot 724.2 05/18/2015 MADL, FLO Alfred MATERIAL CONTROL SPECIALIST Ot 785.1 05/18/2015 ISMAEL SOL THIOKOL OPERATOR Ot 112.1 CANDIDAL VULVOVAGINITIS 05/18/2015 ISMAEL SOL THIOKOL OPERATOR Ot 599.0 URIN TRACT INFECTION NOS 05/18/2015 ISMAEL SOL THIOKOL OPERATOR Ot 789.09 ABDOMINAL PAIN, OTHER SPECIFIED SITE 05/18/2015 MADLFLO MATERIAL CONTROL SPECIALIST Ot 724.2 08/26/2015 MADLFLO MATERIAL CONTROL SPECIALIST Ot 785.1 08/26/2015 MIRANDA LOCO DO Ot N39.0 URINARY TRACT INFECTION, SITE NOT SPECIF 08/26/2015 MIRANDA LOCO DO K Ot R10.11 RIGHT UPPER QUADRANT PAIN 08/31/2015 ISMAEL SOL THIOKOL OPERATOR Ot F19.10 OTHER PSYCHOACTIVE SUBSTANCE ABUSE, UNCO 08/31/2015 ISMAEL SOL THIOKOL OPERATOR Ot R56.9 UNSPECIFIED CONVULSIONS 10/10/2015 ISMAEL SOL THIOKOL OPERATOR Ot F17.210 NICOTINE DEPENDENCE, CIGARETTES, UNCOMPL 10/10/2015 ISMAEL SOL THIOKOL OPERATOR Ot F39 UNSPECIFIED MOOD [AFFECTIVE] DISORDER 10/10/2015 ISMAEL SOL THIOKOL OPERATOR Ot N39.0 URINARY TRACT INFECTION, SITE NOT SPECIF 10/10/2015 ISMAEL SOL THIOKOL OPERATOR Ot T88.7XXA UNSP ADVERSE EFFECT OF DRUG OR MEDICAMEN 11/04/2015 Ot 427.9 11/04/2015 EVITA JONES, WOLF Carmona Ot 596.59 11/04/2015 WOLF JAMA MD Ot 724.2 11/04/2015 EVITA JONES, WOLF Carmona Ot 729.5 11/04/2015 GERBER JONES, JENNIFER Altamirano Ot 240.9 11/04/2015 GERBER JONES, JENNIFER Altamirano Ot 789.01 11/04/2015 MADL, FLO L MATERIAL CONTROL SPECIALIST Ot 724.2 11/04/2015 MADL, FLO L MATERIAL CONTROL SPECIALIST Ot 785.1 11/19/2015 FELICIA RESTREPO THIOKOL OPERATOR Ot Z87.42 01/02/2016 Ot 427.9 01/02/2016 EVITA JONES, WOLF Carmona Ot 596.59 01/02/2016 EVITA JONES, WOLF Carmona Ot 724.2 01/02/2016 EVITA JONES, WOLF Carmona Ot 729.5 01/02/2016 GERBER JONES, JENNIFER Altamirano Ot 240.9 01/02/2016 GERBER JONES, JENNIFER Altamiraon Ot 789.01 01/02/2016 MADL, FLO L MATERIAL CONTROL SPECIALIST Ot 724.2 01/02/2016 MADL, FLO L MATERIAL CONTROL SPECIALIST Ot 785.1 01/02/2016 FELICIA RESTREPO APRN [...] Altamirano Ot 789.01 01/02/2016 MADL, FLO L MATERIAL CONTROL SPECIALIST Ot 724.2 01/02/2016 MADL, FLO L MATERIAL CONTROL SPECIALIST Ot 785.1 01/02/2016 FELICIA RESTREPO APRN [...] RIGHT UPPER QUADRANT 03/23/2016 MADL, FLO L MATERIAL CONTROL SPECIALIST Ot 724.2 LUMBAGO 03/23/2016 MADL, FLO L MATERIAL CONTROL SPECIALIST Ot 785.1 PALPITATIONS 03/23/2016 FELICIA RESTREPO [...] RIGHT UPPER QUADRANT 03/24/2016 MADL, FLO L MATERIAL CONTROL SPECIALIST Ot 724.2 LUMBAGO 03/24/2016 MADL, FLO L MATERIAL CONTROL SPECIALIST Ot 785.1 PALPITATIONS 03/24/2016 FELICIA RESTREPO [...] JONES, WOLF Carmona Ot 724.2 LUMBAGO 06/29/2016 WOLF JAMA MD Ot 729.5 PAIN IN LIMB 06/29/2016 GERBER JONES, JENNIFER Altamirano Ot 240.9 GOITER NOS 06/29/2016 JENNIFER MAYES MD Ot 789.01 ABDOMINAL PAIN, RIGHT UPPER QUADRANT 06/29/2016 MADL, FLO L MATERIAL CONTROL SPECIALIST Ot 724.2 LUMBAGO 06/29/2016 MADL, FLO L MATERIAL CONTROL SPECIALIST Ot 785.1 PALPITATIONS 06/29/2016 FELICIA RESTREPO APRN [...] F41.9 ANXIETY DISORDER, UNSPECIFIED 07/22/2016 SUNITA BERNAL Ot I47.1 SUPRAVENTRICULAR TACHYCARDIA 07/22/2016 SUNITA BERNAL L Ot O23.42 UNSP INFCT OF URINARY TRACT IN 07/22/2016 SUNITA BERNAL Ot O99.332 SMOKING (TOBACCO) COMPLICATING 07/22/2016 SUNITA BERNAL L Ot R10.31 RIGHT LOWER QUADRANT PAIN 07/22/2016 SUNITA BERNAL L Ot Z3A.18 18 WEEKS GESTATION OF 07/22/2016 SUNITA BERNAL L Ot Z79.899 OTHER PERSONAL SECRETARY (CURRENT) DRUG THERAPY 07/25/2016 SUNITA BERNAL Ot F32.9 MAJOR DEPRESSIVE DISORDER, SINGLE EPISOD 07/25/2016 SUNITA BERNAL Ot F41.9 ANXIETY DISORDER, UNSPECIFIED 07/25/2016 SUNITA BERNAL Ot I47.1 SUPRAVENTRICULAR TACHYCARDIA 07/25/2016 SUNITA BERNAL Ot O23.42 UNSP INFCT OF URINARY TRACT IN 07/25/2016 SUNITA BERNAL Ot O99.332 SMOKING (TOBACCO) COMPLICATING 07/25/2016 SUNITA BERNAL Ot R10.31 RIGHT LOWER QUADRANT PAIN 07/25/2016 SUNITA BERNAL Ot Z79.899 OTHER [facility] (CURRENT) DRUG THERAPY 07/25/2016 SUNITA BERNAL Ot [...] PAIN 07/25/2016 SUNITA BERNAL Ot Z79.899 OTHER PERSONAL SECRETARY (CURRENT) DRUG THERAPY 07/25/2016 SUNITA BERNAL Ot [...] OF 07/25/2016 SUNITA BERNAL Ot Z79.899 OTHER PERSONAL SECRETARY (CURRENT) DRUG THERAPY 09/14/2016 JENNIFER MAYES MD, [...] Ot O69.2XX0 LABOR AND DEL COMP BY [facility] CORD [facility]NTANG[facility], 12/01/2016 JENNIFER MAYES MD, Ot [...] BERNAL Ot E86.9 VOLUME DEPLETION, UNSPECIFIED 12/09/2016 USNITA BERNAL Ot F17.210 NICOTINE DEPENDENCE, CIGARETTES, UNCOMPL [...] ENCOUNTER FOR OTHER PREPROCEDURAL EXAMIN 01/05/2017 JENNIFER MYAES MD, Ot Z11.2 ENCOUNTER FOR SCREENING FOR [...] Ot N70.01 ACUTE SALPINGITIS 01/15/2017 JENNIFER MAYES MD, Ot N72 INFLAMMATORY DISEASE [...] DISORDER OF TEETH AND SUPPORTING STRUCTU 04/11/2017 MADL, FLO L MATERIAL CONTROL SPECIALIST Ot R10.2 PELVIC AND PERINEAL PAIN 04/24/2017 MADL, FLO L MATERIAL CONTROL SPECIALIST Ot R10.2 PELVIC AND PERINEAL PAIN 04/24/2017 Ot 427.9 CARDIAC DYSRHYTHMIA NOS 04/24/2017 WOLF JAMA MD Ot 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 04/24/2017 WOLF JAMA MD Ot 724.2 LUMBAGO 04/24/2017 WOLF JAAM MD Ot 729.5 PAIN IN LIMB 04/24/2017 JENNIFER MAYES MD Ot 240.9 GOITER NOS 04/24/2017 JENNIFER MAYES MD, Ot 789.01 ABDOMINAL PAIN, RIGHT UPPER QUADRANT 04/24/2017 ROSITA GONZALEZMaddy Alfred MATERIAL CONTROL SPECIALIST Ot 724.2 LUMBAGO 04/24/2017 MADTima FLO Alfred MATERIAL CONTROL SPECIALIST Ot 785.1 PALPITATIONS 04/24/2017 FELICIA RESTREPO THIOKOL OPERATOR Ot Z87.42 PERSONAL HISTORY OF OTH DISEASES OF THE 04/24/2017 JENNIFER MAYES MD, Ot O36.0930 MATERNAL CARE FOR OTH RHESUS ISOIMMUN, T 04/24/2017 JENNIFER MAYES MD, Ot Z23 ENCOUNTER FOR IMMUNIZATION 04/24/2017 JENNIFER MAYES MD, Ot Z3A.00 WEEKS OF GESTATION OF NOT SPEC 04/24/2017 ROSITA GONZALEZA Tima MATERIAL CONTROL SPECIALIST Ot R10.2 PELVIC AND PERINEAL PAIN 05/03/2017 FLO GONZALEZ MATERIAL CONTROL SPECIALIST Ot R10.2 PELVIC AND PERINEAL PAIN 05/03/2017 FLO GONZALEZ L MATERIAL CONTROL SPECIALIST Ot R10.2 PELVIC AND PERINEAL PAIN 11/30/2017 [...] MD, Ot F31.9 BIPOLAR DISORDER, UNSPECIFIED 12/20/2017 JENINFER MAYES MD, Ot F41.9 ANXIETY DISORDER, UNSPECIFIED [...] OTHER ACUTE POSTPROCEDURAL PAIN 12/21/2017 CALVIN JACOBO MD, Ot J45.909 UNSPECIFIED ASTHMA, UNCOMPLICATED 12/21/2017 CALVIN JACOBO MD, Ot N99.820 POSTPROC HEMOR OF A SYS ORG FOLLOWING 12/21/2017 CALVIN JACOBO MD, Ot Z87.448 PERSONAL HISTORY [...] Workman Ot F41.9 ANXIETY DISORDER, UNSPECIFIED 01/09/2018 MIRANDA LOCO DO Ot G89.29 OTHER CHRONIC PAIN 01/09/2018 CLAUDY BLANTON MIRANDA Workman Ot M54.5 LOW BACK PAIN 01/09/2018 CLAUDY BLANTON MIRANDA Workman Ot Z86.79 PERSONAL HISTORY OF OTHER DISEASES OF TH 01/09/2018 CLAUDY BLANTON MIRANDA Workman Ot Z87.42 PERSONAL HISTORY OF OTH DISEASES OF THE 01/09/2018 MIRANDA LOCO DO Ot Z88.0 ALLERGY STATUS TO PENICILLIN 01/09/2018 CLAUDY BLANTON MIRANDA Workman Ot Z88.1 ALLERGY STATUS TO OTHER ANTIBIOTIC AGENT 01/09/2018 CLAUDY BLANTON MIRANDA Workman Ot Z88.6 ALLERGY STATUS TO ANALGESIC AGENT STATUS 01/09/2018 CLAUDY BLANTON MIRANDA Workman Ot Z90.710 ACQUIRED ABSENCE OF BOTH CERVIX AND UTER 01/09/2018 CLAUDY BLANTON MIRANDA Jacinta Ot Z90.89 ACQUIRED ABSENCE OF OTHER [...] TO OTH DRUG/MEDS/BIOL SUB 01/10/2018 CALVIN JACOBO MD, Ot Z90.721 ACQUIRED ABSENCE OF OVARIES, UNILATERAL 01/10/2018 DONNELL JONES, CALVIN Kiser Ot Z90.89 ACQUIRED ABSENCE OF OTHER ORGANS 01/11/2018 CLAUDY MIRANDA Workman Ot F17.210 NICOTINE DEPENDENCE, CIGARETTES, UNCOMPL 01/11/2018 CLAUDY MIRANDA Workman Ot F31.9 BIPOLAR DISORDER, UNSPECIFIED 01/11/2018 [place] MIRANDA Workman Ot F41.9 ANXIETY DISORDER, UNSPECIFIED 01/11/2018 [place] MIRANDA Workman Ot G89.29 OTHER CHRONIC PAIN 01/11/2018 CLAUDY MIRANDA Workman Ot M54.5 LOW BACK PAIN 01/11/2018 [place] MIRANDA Workman Ot Z86.79 PERSONAL HISTORY OF OTHER DISEASES OF TH 01/11/2018 CLAUDY MIRANDA Jacinta Ot Z87.42 PERSONAL HISTORY OF OTH DISEASES OF THE 01/11/2018 CLAUDY DO MIRANDA Workman Ot Z88.0 ALLERGY STATUS TO PENICILLIN 01/11/2018 CLAUDY MIRANDA Workman Ot Z88.1 ALLERGY STATUS TO OTHER ANTIBIOTIC AGENT 01/11/2018 [place] MIRANDA Workman Ot Z88.6 ALLERGY STATUS TO ANALGESIC AGENT STATUS 01/11/2018 [facility] MIRANDA Workman Ot Z90.710 ACQUIRED ABSENCE OF BOTH CERVIX AND UTER 01/11/2018 [facility] MIRANDA Jacinta Ot Z90.89 ACQUIRED ABSENCE OF OTHER [...] ALLERGY STATUS TO PENICILLIN 04/27/2018 ISMAEL SOL APRN Ot Z88.1 ALLERGY STATUS [...] Z90.89 ACQUIRED ABSENCE OF OTHER ORGANS 05/03/2018 JENNIFER MAYES MD Ot R10.2 PELVIC AND PERINEAL PAIN 05/03/2018 JENNIFER MAYES MD Ot R10.2 PELVIC AND PERINEAL PAIN 05/09/2018 JENNIFER MAYES MD Ot R10.2 PELVIC AND PERINEAL PAIN 05/14/2018 JENNIFER MAYES MD Ot R10.2 PELVIC AND PERINEAL PAIN 07/05/2018 DAVID SANDERS MD Ot F32.9 MAJOR DEPRESSIVE DISORDER, SINGLE EPISOD 07/05/2018 MARILYN JONES, DAVID Dickens Ot R00.2 PALPITATIONS 07/05/2018 MARILYN JONES, DAVID Dickens Ot R07.89 OTHER CHEST PAIN 07/12/2018 MARILYN JONES, DAVID Dickens Ot F32.9 MAJOR DEPRESSIVE DISORDER, SINGLE EPISOD 07/12/2018 MARILYN JONES, DAVID Dickens Ot R00.2 PALPITATIONS 07/12/2018 MARILYN JONES, DAVID Dickens Ot R07.89 OTHER CHEST PAIN 07/18/2018 MARILYN JONES, DAVID Dickens Ot F32.9 MAJOR DEPRESSIVE DISORDER, SINGLE EPISOD 07/18/2018 MARILYN JONES, DAVID Dickens Ot R00.2 PALPITATIONS 07/18/2018 MARILYN JONES, DAVID Dickens Ot R07.89 OTHER CHEST PAIN 08/05/2018 ISMAEL SOL APRN Ot F17.210 NICOTINE DEPENDENCE, CIGARETTES, UNCOMPL 08/05/2018 ISMAEL SOL APRN Ot F31.9 BIPOLAR DISORDER, UNSPECIFIED 08/05/2018 ISMAEL SOL APRN Ot F41.9 ANXIETY DISORDER, UNSPECIFIED 08/05/2018 ISMAEL SOL APRN Ot F43.10 POST-TRAUMATIC STRESS DISORDER, UNSPECIF 08/05/2018 ISMAEL SOL APRN Ot I82.890 ACUTE EMBOLISM AND THROMBOSIS OF OTHER S 08/05/2018 ISMAEL SOL APRN Ot J45.909 UNSPECIFIED ASTHMA, UNCOMPLICATED 08/05/2018 ISMAEL SOL APRN Ot R10.32 LEFT LOWER QUADRANT PAIN 08/05/2018 ISMAEL SOL APRN Ot Z79.52 PERSONAL SECRETARY (CURRENT) USE OF SYSTEMIC STER 08/05/2018 ISMAEL SOL APRN Ot Z87.448 PERSONAL HISTORY OF OTHER DISEASES OF UR 08/05/2018 ISMAEL SOL APRN Ot Z88.0 ALLERGY STATUS TO PENICILLIN 08/05/2018 ISMAEL SOL APRN Ot Z88.6 ALLERGY STATUS TO ANALGESIC AGENT STATUS 08/05/2018 ISMAEL SOL APRN Ot Z88.8 ALLERGY STATUS TO OTH DRUG/MEDS/BIOL SUB 08/05/2018 ISMAEL SOL APRN Ot Z90.710 ACQUIRED ABSENCE OF BOTH CERVIX AND UTER 08/05/2018 ISMAEL SOL APRN Ot Z90.89 ACQUIRED ABSENCE OF OTHER ORGANS 08/07/2018 ISMAEL SOL THIOKOL OPERATOR Ot F17.210 NICOTINE DEPENDENCE, CIGARETTES, UNCOMPL 08/07/2018 ISMAEL SOL THIOKOL OPERATOR Ot F31.9 BIPOLAR DISORDER, UNSPECIFIED 08/07/2018 ISMAEL SOL THIOKOL OPERATOR Ot F41.9 ANXIETY DISORDER, UNSPECIFIED 08/07/2018 ISMAEL SOL THIOKOL OPERATOR Ot F43.10 POST-TRAUMATIC STRESS DISORDER, UNSPECIF 08/07/2018 ISMAEL SOL THIOKOL OPERATOR Ot I82.890 ACUTE EMBOLISM AND THROMBOSIS OF OTHER S 08/07/2018 ISMAEL SOL APRN Ot J45.909 UNSPECIFIED ASTHMA, UNCOMPLICATED 08/07/2018 ISMAEL SOL APRN Ot R10.32 LEFT LOWER QUADRANT PAIN 08/07/2018 ISMAEL SOL APRN Ot Z79.52 PERSONAL SECRETARY (CURRENT) USE OF SYSTEMIC STER 08/07/2018 ISMAEL SOL THIOKOL OPERATOR Ot Z87.448 PERSONAL HISTORY OF OTHER DISEASES OF UR 08/07/2018 ISMAEL SOL THIOKOL OPERATOR Ot Z88.0 ALLERGY STATUS TO PENICILLIN 08/07/2018 ISMAEL SOL THIOKOL OPERATOR Ot Z88.6 ALLERGY STATUS TO ANALGESIC AGENT STATUS 08/07/2018 ISMAEL SOL THIOKOL OPERATOR Ot Z88.8 ALLERGY STATUS TO OTH DRUG/MEDS/BIOL SUB 08/07/2018 ISMAEL SOL APRN Ot Z90.710 ACQUIRED ABSENCE OF BOTH CERVIX AND UTER 08/07/2018 ISMAEL SOL THIOKOL OPERATOR Ot Z90.89 ACQUIRED ABSENCE OF OTHER ORGANS 09/24/2018 EVITA JONES, WOLF Carmona Ot 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 09/24/2018 EVITA JONES, WOLF Carmona Ot 724.2 LUMBAGO 09/24/2018 WOLF JAMA MD Ot 729.5 PAIN IN LIMB 09/24/2018 JENNIFER MAYES MD Ot 240.9 GOITER NOS 09/24/2018 GERBER JONES, JENNIFER Altamirano Ot 789.01 ABDOMINAL PAIN, RIGHT UPPER QUADRANT 09/24/2018 MADL, FLO L MATERIAL CONTROL SPECIALIST Ot 724.2 LUMBAGO 09/24/2018 MADL, FLO L MATERIAL CONTROL SPECIALIST Ot 785.1 PALPITATIONS 09/24/2018 FELICIA RESTREPO APRN Ot Z87.42 PERSONAL HISTORY OF OTH DISEASES OF THE 09/24/2018 JENNIFER MAYES MD, Ot O36.0930 MATERNAL CARE FOR OTH RHESUS ISOIMMUN, T 09/24/2018 JENNIFER MAYES MD, Ot Z23 ENCOUNTER FOR IMMUNIZATION 09/24/2018 JENNIFER MAYES MD, Ot Z3A.00 WEEKS OF GESTATION OF NOT SPEC 02/19/2019 DARY REDMAN MD Ot R10.32 LEFT LOWER QUADRANT PAIN 02/19/2019 DARY REDMAN MD Ot R11.0 NAUSEA 02/27/2019 DAVID SNADERS MD Ot F32.9 MAJOR DEPRESSIVE DISORDER, SINGLE EPISOD 02/27/2019 DAVID SANDERS MD Ot R00.2 PALPITATIONS 02/27/2019 DAVID SANDERS MD Ot R07.89 OTHER CHEST PAIN 02/27/2019 DAVID SANDERS MD, Ot F32.9 MAJOR DEPRESSIVE DISORDER, SINGLE EPISOD 02/27/2019 DAVID SANDERS MD Ot R00.2 PALPITATIONS 02/27/2019 DAVID SANDERS MD Ot R07.89 OTHER CHEST PAIN Procedures Code Description [place] [address] ROUTINE VENIPUNCTURE 09/28/2012 49937 CBC 09/28/2012 81792 CRP 09/29/2012 26119 URINE TEST (IN- HOUSE) 11/29/2012 96716 URINE TEST (IN- HOUSE) 01/16/2013 71107 TRICHOMONAS (IN-HOUSE) 01/16/2013 52403 GC/CHLAM PROBE (STATE) 01/17/2013 45218 PAP SMEAR 01/17/2013 Q0091 PAP SMEAR OBTAIN SMEAR 01/17/2013 83880 CULTURE UROGENITAL 01/19/2013 95127 URINE TEST (IN- HOUSE) 02/13/2013 17230 URINE TEST (IN- HOUSE) 04/02/2013 25296 XRAY CERVICAL SPINE, 2 OR 3 VIEWS 04/02/2013 12721 XRAY LUMBAR SPINE 2 OR 3 VIEWS 04/02/2013 69112 MRI SPINE (LUMBAR) W/O CONTRAST 05/17/2013 52488 TB TEST INTRADERMAL 06/22/2013 56907 URINE TEST (IN- HOUSE) 08/01/2013 81905 UA LONG DIP 09/11/2013 8258467 GFR CALC (RESULT ONLY) 09/16/2013 34065 CREATININE 09/16/2013 13996 URINE PROTEIN 24 HOUR 09/16/2013 [id number] URINE CREATININE CLEARANCE 24 09/16/2013 73.6 EPISIOTOMY 03/22/2014 07958 ROUTINE VENIPUNCTURE 07/04/2014 48815 MRI SPINE (LUMBAR) W/O CONTRAST 07/04/2014 57840 CMP 07/04/2014 66338 CBC 07/04/2014 37464 ROUTINE VENIPUNCTURE 09/16/2014 52696 US ABDOMINAL ULTRASOUND, COMPLETE 09/16/2014 96250 VITAMIN D 25-HYDROXY (D2,D3 , TOTAL) 09/16/2014 28058 VIT B 12 09/16/2014 78972 TSH 09/16/2014 54304 H PYLORI (IN-HOUSE) 09/16/2014 27579 CBC 09/16/2014 2846025 GFR CALC (RESULT ONLY) 09/16/2014 67261 CMP 09/16/2014 02878 UA W/ CULTURE IF INDICATED 10/29/2014 85997 GC/CHLAM URINE (STATE) 10/29/2014 85301 PSYCH DIAGNOSTIC EVALUATION 10/31/2014 79710 ROUTINE VENIPUNCTURE 11/10/2014 36704 XRAY CHEST 2 VIEW 11/10/2014 61390 CMP 11/10/2014 99362 MAGNESIUM 11/10/2014 20566 CBC 11/10/2014 73121 EKG, TRACING (IN-HOUSE) 11/10/2014 26784 HOLTER MONITOR (OUTPATIENT) 11/10/2014 CARDIOLOG RANULFO VARGAS 11/10/2014 45773 PSYTX PT&/FAMILY 45 MINUTES 11/26/2014 [id number] DIVISION OF FEMALE PERINEUM, EXTERNAL AP 11/29/2016 [id number] DELIVERY OF PRODUCTS OF CONCEPTION, EXTE 11/29/2016 [...] GLOBULIN RHOPHYLAC PRSMD TRFSD 06/29/16 1556 NR [id number] - 06/29/16 15:40 [id number] 300ug NRG Lot number - 06/29/16 15:40 Lot number [id number] NR cell screen - 06/29/16 15:40 cell [...] culture - 06/29/16 16:25 Bacterial urine culture [id number] NRG COLONY COUNT >100,000/ML NRG FTX;REPORTABLE SENSITIVITY [...] identification in genital specimen by aerobe culture [id number] NRG Microscopic examination by wet preparation - [...] culture - 07/22/16 18:23 Bacterial urine culture [id number] NRG COLONY COUNT >100,000/ML NRG FTX;REPORTABLE SENSITIVITY REPORTED AT 1738, 16 NRG Bacterial susceptibility panel - 07/22/16 18:23 [...] inhibitory concentration - NRG RH IMMUNE GLOBULIN BAYO - 10/05/16 12:19 RH IMMUNE GLOBULIN [facility] PRSMD TRFSD 10/05/16 1300 NRG [id number] - 10/05/16 12:19 [id number] 1 300ug NRG Lot number - 10/05/16 12:19 Lot number [id number] NRG cell screen - 10/05/16 12:19 cell [...] platelet mean volume measurement 10.9 [foz_us] 7.4-10.4 [id number] - 11/08/16 19:04 [id number] SPECIMEN AVAILABLE [facility] Complete blood count (CBC) with automated white [...] ABO+Rh group AN NRG Transfusion band number [id number] Blood group antibody screen NEGATIVE NRG Microscopic [...] ABO+Rh group AN NRG Transfusion band number [id number] NRG Blood group antibody screen NEGATIVE NRG [...] 7-25 CREATININE 0.63 mg/dL 0.50-1.10 eGFR NON-AFR. RWANDAN 123 mL/min/1.73m2 > OR=60 eGFR 142 mL/min/1.73m2 [...] - 05/25/18 12:47 TSH 1.14 mIU/L NRG Complete blood count (CBC) with automated white blood cell (WBC) differential - 08/05/18 21:10 Blood leukocytes automated count (number/volume) 10.0 10*3/uL 4.3-11.0 Blood erythrocytes automated count (number/volume) 4.82 10*6/uL 4.35-5.85 Venous blood hemoglobin measurement (mass/volume) 14.5 g/dL 11.5-16.0 Blood hematocrit (volume fraction) 42 % 35-52 Automated erythrocyte mean corpuscular volume 88 [foz_us] 80-99 Automated erythrocyte mean corpuscular hemoglobin (mass per erythrocyte) 30 pg 25-34 Automated erythrocyte mean corpuscular hemoglobin concentration measurement ( mass/volume) 34 g/dL 32-36 Automated erythrocyte distribution width ratio 12.3 % 10.0-14.5 Automated blood platelet count (count/volume) 223 10*3/uL 130-400 Automated blood platelet mean volume measurement 10.6 [foz_us] 7.4-10.4 Automated blood neutrophils/100 leukocytes 61 % 42-75 Automated blood lymphocytes/100 leukocytes 27 % 12-44 Blood monocytes/100 leukocytes 9 % 0-12 Automated blood eosinophils/100 leukocytes 2 % 0-10 Automated blood basophils/100 leukocytes 0 % 0-10 Blood neutrophils automated count (number/volume) 6.1 10*3 1.8-7.8 Blood lymphocytes automated count (number/volume) 2.7 10*3 1.0-4.0 Blood monocytes automated count (number/volume) 0.9 10*3 0.0-1.0 Automated eosinophil count 0.2 10*3/uL 0.0-0.3 Automated blood basophil count (count/volume) 0.0 10*3/uL 0.0-0.1 Complete urinalysis with reflex to culture - 08/05/18 21:10 Urine color determination YELLOW NRG Urine clarity [...] detection in urine sediment by light microscopy PRESENT NRG Casts detection in urine sediment by light microscopy NONE NRG Mucus detection in urine sediment by light microscopy MODERATE NRG Complete urinalysis with reflex to culture NO NRG Amorphous sediment detection in urine sediment by light microscopy MOD [place] URATES NRG Renal epithelial cells detection in urine sediment by light microscopy NONE NRG Comprehensive metabolic panel - 08/05/18 21:10 Serum or plasma sodium measurement (moles/volume) 141 mmol/L 135-145 Serum or plasma potassium measurement (moles/volume) 3.9 mmol/L 3.6-5.0 Serum or plasma chloride measurement (moles/volume) 107 mmol/L 98-107 Carbon dioxide 24 mmol/L 21-32 Serum or plasma anion gap determination (moles/volume) 10 mmol/L 5-14 Serum or plasma urea nitrogen measurement (mass/volume) 15 mg/dL 7-18 Serum or plasma creatinine measurement (mass/volume) 0.78 mg/dL 0.60-1.30 Serum or plasma urea nitrogen/creatinine mass ratio 19 NRG Serum or plasma creatinine measurement with calculation of estimated glomerular filtration rate > NRG Serum or plasma glucose measurement (mass/volume) 90 mg/dL 70-105 Serum or plasma calcium measurement (mass/volume) 9.6 mg/dL 8.5-10.1 Serum or plasma total bilirubin measurement (mass/volume) 0.2 mg/dL 0.1-1.0 Serum or plasma alkaline phosphatase measurement (enzymatic activity/volume) 53 U/L 40-136 Serum or plasma aspartate aminotransferase measurement (enzymatic activity/ volume) 11 U/L 5-34 Serum or plasma alanine aminotransferase measurement (enzymatic activity/volume ) 10 U/L 0-55 Serum or plasma protein measurement (mass/volume) 7.4 g/dL 6.4-8.2 Serum or plasma albumin measurement (mass/volume) 4.6 g/dL 3.2-4.5 Urine beta human chorionic gonadotropin (hCG) measurement - 03/04/19 15:40 Urine beta human chorionic gonadotropin (hCG) measurement NEGATIVE NEGATIVE Complete urinalysis with reflex to culture - 03/04/19 15:40 Urine color determination YELLOW NRG Urine clarity determination SLIGHTLY CLOUDY NRG Urine pH measurement by test strip 6 5-9 Specific gravity of urine by test strip 1.020 1.016- 1.022 Urine protein assay by test strip, semi-quantitative 1+ NEGATIVE Urine glucose detection by automated test strip NEGATIVE NEGATIVE Erythrocytes detection in urine sediment by light microscopy 1+ NEGATIVE Urine ketones detection by automated test strip 1+ NEGATIVE Urine nitrite detection by test strip NEGATIVE NEGATIVE Urine total bilirubin detection by test strip NEGATIVE NEGATIVE Urine urobilinogen measurement by automated test strip (mass/volume) NORMAL NORMAL Urine leukocyte esterase detection by dipstick 1+ NEGATIVE Automated urine sediment erythrocyte count by microscopy (number/high power field) [HPF] NRG Automated urine sediment leukocyte count by microscopy (number/high power field ) RARE NRG Bacteria detection in urine sediment by light microscopy TRACE NRG Crystals detection in urine sediment by light microscopy NONE NRG Casts detection in urine sediment by light microscopy NONE NRG Mucus detection in urine sediment by light microscopy MODERATE NRG Complete urinalysis with reflex to culture NO NRG Encounters ACCT No. Visit Date/Time Discharge Status Pt. Type Provider Facility Loc./Unit Complaint [id number] 02/27/2015 09:25:00 02/27/2015 23:59:59 [facility] Outpatient GODWIN SEVILLA APRN [id number] 01/23/2015 11:47:00 01/23/2015 23:59:59 CLS Outpatient GODWIN SEVILLA APRN [id number] 12/18/2014 16:07:00 12/18/2014 23:59:59 CLS Outpatient NICOLA MANUEL DO [id number] 12/18/2014 10:25:00 12/18/2014 23:59:59 CLS Outpatient GODWIN SEVILLA APRN [id number] 12/16/2014 10:01:00 12/16/2014 23:59:59 [facility] Outpatient ANGELA DEMOND CHOUDHURY [id number] 11/26/2014 14:03:00 11/26/2014 23:59:59 [id number] 11/21/2014 08:26:00 11/21/2014 23:59:59 CLS Outpatient JOSE SILVERIO DDS [id number] 11/10/2014 09:24:00 11/10/2014 23:59:59 CLS Outpatient FLO GONZALEZ APRN Tima [id number] 10/31/2014 11:08:00 10/31/2014 23:59:59 [facility] [id number] 10/29/2014 16:35:00 10/29/2014 23:59:59 CLS Outpatient SONNY CANONCARMINAELIAS A [id number] 10/17/2014 11:27:00 10/17/2014 23:59:59 CLS Outpatient ROEL THIOKOL OPERATORGODWIN Kirkpatrick [id number] 09/16/2014 09:30:00 09/16/2014 23:59:59 CLS Outpatient MADL FLO MENG Tima [id number] 09/16/2014 09:30:00 09/16/2014 23:59:59 CLS Outpatient MADL THIOKOL OPERATORFLO Tima [id number] 08/01/2014 13:23:00 08/01/2014 23:59:59 CLS Outpatient ROEL THIOKOL OPERATORGODWIN Kirkpatrick [id number] 08/01/2014 13:23:00 08/01/2014 23:59:59 CLS Outpatient ROEL THIOKOL OPERATORGODWIN Kirkpatrick [id number] 07/04/2014 08:35:00 07/04/2014 23:59:59 CLS Outpatient BRYANL FLO MENG Tima [id number] 06/10/2014 09:22:00 06/10/2014 23:59:59 CLS Outpatient ROEL THIOKOL OPERATORGODWIN Kirkpatrick [id number] 05/27/2014 08:53:00 05/27/2014 23:59:59 CLS Outpatient MADL THIOKOL OPERATORFLO Tima [id number] 05/08/2014 11:48:00 05/08/2014 23:59:59 CLS Outpatient ROEL THIOKOL OPERATORGODWIN Kirkpatrick [id number] 04/10/2014 09:33:00 04/10/2014 23:59:59 CLS Outpatient WOLF JAMA MD [id number] 03/11/2014 13:00:00 03/11/2014 23:59:59 CLS Outpatient JASON HUNTER APRN [id number] 03/11/2014 13:00:00 03/11/2014 23:59:59 CLS Outpatient JASON HUNTER APRN [id number] 12/10/2013 10:52:00 12/10/2013 23:59:59 CLS Outpatient JASON HUNTER APRN [id number] 10/18/2013 09:59:00 10/18/2013 23:59:59 CLS Outpatient KELY FRIEDMAN DDS [id number] 09/16/2013 12:50:00 09/16/2013 23:59:59 CLS Outpatient NICOLA MANUEL DO [id number] 09/11/2013 16:55:00 09/11/2013 23:59:59 CLS Outpatient WOLF JAMA MD [id number] 08/15/2013 12:35:00 08/15/2013 23:59:59 CLS Outpatient JASON HUNTER APRN [id number] 08/01/2013 09:18:00 08/01/2013 23:59:59 CLS Outpatient NICOLA MANUEL DO [id number] 02/13/2013 13:59:00 02/13/2013 23:59:59 CLS Outpatient [id number] 01/24/2013 15:27:00 01/24/2013 23:59:59 CLS Outpatient XIOMARA BLANTON JASON Carmona [id number] 01/16/2013 10:21:00 01/16/2013 23:59:59 CLS Outpatient NICOLA MANUEL DO [id number] 11/29/2012 15:05:00 11/29/2012 23:59:59 CLS Outpatient [id number] 09/28/2012 08:28:00 09/28/2012 23:59:59 [place] [id number] 09/03/2012 15:05:00 09/03/2012 23:59:59 CLS Outpatient WOLF JAMA MD [id number] 06/22/2013 09:12:00 Document Registration [id number] 05/15/2013 10:52:00 Document Registration [id number] 05/09/2013 15:22:00 Document Registration [id number] 04/29/2013 08:59:00 Document Registration [id number] 04/26/2013 14:51:00 Document Registration [id number] 04/19/2013 10:48:00 Document Registration [id number] 04/02/2013 13:34:00 Document Registration [id number] 03/26/2013 13:02:00 Document Registration [id number] 03/23/2013 09:54:00 Document Registration [id number] 02/22/2013 12:11:00 Document Registration [id number] 02/08/2019 14:40:00 02/08/2019 23:59:59 CLS Outpatient NICOLA MANUEL DO [facility] [id number] 05/25/2018 11:20:00 Document Registration [id number] 05/17/2018 10:00:00 Document Registration [id number] 03/30/2018 13:05:00 Document Registration [id number] 02/21/2018 10:00:00 Document Registration [id number] 02/28/2019 08:05:00 02/28/2019 23:59:59 CLS Outpatient DARY REDMAN MD [facility] RAD LLQ PAIN,NAUSEA [id number] 02/18/2019 07:31:00 02/18/2019 23:59:59 CLS Outpatient DARY REDMAN MD [facility] RAD LLQ PAIN, NAUSEA [id number] 08/05/2018 20:11:00 08/05/2018 23:00:00 DIS Emergency ISMAEL SOL APRN [facility] ER ABD PAIN [id number] 07/11/2018 12:50:00 07/11/2018 23:59:59 CLS Outpatient DAVID SANDERS MD [facility] CARD ANTERIOR CHEST WALL PAIN ,HEART PALPITATIONS [id number] 07/02/2018 07:47:00 07/02/2018 23:59:59 CLS Outpatient DAVID SANDERS MD [facility] CARD ANTERIOR CHEST WALL PAIN ,HEART PALPITATIONS [id number] 05/04/2018 08:44:00 05/14/2018 09:11:00 DIS Outpatient JENNIFER MAYES MD [facility] REHAB PELVIC FLOOR WEAKNESS [id number] 04/27/2018 18:44:00 04/27/2018 19:17:00 DIS Emergency ISMAEL SOL THIOKOL OPERATOR [facility] ER JAW AND BACK PAIN [id number] 02/02/2018 08:37:00 02/02/2018 23:59:59 CLS Preadmit HEARNDON DO, DAKSHA L [facility] RAD M54.16 RADICULOPATHY [id number] 01/09/2018 00:07:00 01/09/2018 01:21:00 DIS Emergency MIRANDA LOCO DO [facility] ER SEVERE BACK PAIN GOES DOWN INTO LEGS HIPS [id number] 12/21/2017 01:43:00 12/21/2017 02:17:00 DIS Emergency CALVIN JACOBO MD [facility] ER POST OP ABD SURGERY BLEEDING THRU,VERY PAINFULL [id number] 12/20/2017 10:50:00 12/20/2017 16:50:00 DIS Outpatient JENNIFER MAYES MD [facility] ENDOMETRIOSIS, CHRONIC PELVIC PAIN [id number] 11/30/2017 10:02:00 11/30/2017 10:40:00 DIS Outpatient JENNIFER MAYES MD [facility] PREOP ENDOMETRIOSIS, CHRONIC PELVIC PAIN [id number] 04/05/2017 09:36:00 04/05/2017 23:59:59 CLS Outpatient FLO GONZALEZ MATERIAL CONTROL SPECIALIST [facility] RAD R10.2 PELVIC PAIN [id number] 02/03/2017 09:42:00 02/03/2017 23:59:59 CLS Preadmit JENNIFER MAYES MD [facility] REHAB LBP TWO MONTHS ; S/P HYSTERECTOMY [id number] 02/02/2017 12:09:00 02/02/2017 12:47:00 DIS Emergency JESISE ROBERTS MD [facility] ER DENTAL/JAW PAIN [id number] 01/09/2017 10:50:00 01/10/2017 09:45:00 DIS Outpatient JENNIFER MAYES MD [facility] CPP;DUB; ENDOMETRIOSIS [id number] 01/04/2017 12:09:00 01/04/2017 12:30:00 DIS Outpatient JENNIFER MAYES MD [facility] PREOP CPP;DUB; ENDOMETRIOSIS [id number] 12/16/2016 00:59:00 12/16/2016 02:52:00 DIS Emergency DONNELL JONES, CALVIN Margi [facility] ER NAUSEA,FEVER,HAD BABY ON 11-29-16 [id number] 12/02/2016 10:48:00 12/02/2016 14:00:00 DIS Emergency SUNITA BERNAL [facility] ER PALPITATIONS/BLURRY VISION [id number] 11/29/2016 17:45:00 12/01/2016 13:30:00 DIS Inpatient JENNIFER MAYES MD [facility] LDRP LABOR [id number] 11/26/2016 13:04:00 11/26/2016 15:11:00 DIS Outpatient JENNIFER MAYES MD [facility] WSo RIB PAIN/LOWER BACK PAIN [id number] 11/08/2016 18:28:00 11/08/2016 21:23:00 DIS Outpatient JENNIFER MAYES MD [facility] WSo LOWER BACK PAIN/ RIB PAIN/ABD PAIN/GROIN PAIN [id number] 10/05/2016 12:03:00 10/05/2016 23:59:59 CLS Outpatient JENNIFER MAYES MD [facility] WSo RH NEGATIVE IN [id number] 09/14/2016 12:52:00 09/14/2016 13:45:00 DIS Outpatient JENNIFER MAYES MD [facility] WSo LOOSING MUCUS PLUG 26 WKS PREG [id number] 07/22/2016 16:02:00 07/22/2016 19:50:00 DIS Emergency SUNITA BERNAL [facility] ER FEVER/CANNOT URINATE [id number] 06/29/2016 14:38:00 06/29/2016 18:17:00 DIS Emergency REZA CORONADO MD [facility] ER VAG BLEEDING 15 WKS PREG [id number] 03/23/2016 21:42:00 03/24/2016 01:40:00 DIS Emergency MIRANDA LOCO DO [facility] ER CONFUSED,DROWSY [id number] 01/02/2016 01:08:00 01/02/2016 01:43:00 DIS Emergency CLAUDY MIRANDA [facility] ER RT SIDE OF FACE PAINFUL, DENTAL PAIN [id number] 11/04/2015 14:43:00 11/04/2015 23:59:59 CLS Outpatient FELICIA RESTREPO THIOKOL OPERATOR [facility] RAD HISTORY OF ENDOMETRIOSIS [id number] 10/10/2015 16:42:00 10/10/2015 18:09:00 DIS Emergency ISMAEL SOL APRN [facility] ER HIP/BACK PAIN - POSSIBLY [id number] 08/31/2015 17:50:00 08/31/2015 19:59:00 DIS Emergency ISMAEL SOL APRN [facility] ER SEIZURE [id number] 08/26/2015 03:31:00 08/26/2015 05:08:00 DIS Emergency MIRANDA LOCO DO [facility] ER RT SIDE ABD PAIN [id number] 05/18/2015 11:11:00 05/18/2015 12:42:00 DIS Emergency ISMAEL SOL APRN [facility] ER ABD/LOWER BACK PAIN UTI SYMPTOMS [id number] 02/26/2015 09:00:00 02/26/2015 23:59:59 CLS Preadmit MADROSITA AlfredA L MATERIAL CONTROL SPECIALIST [facility] CARD PALPITATIONS [id number] 11/27/2014 08:42:00 02/25/2015 00:01:00 DIS Outpatient MADLNARAYANFLO L MATERIAL CONTROL SPECIALIST [facility] CARD PALPITATIONS [id number] 12/09/2014 13:03:00 12/09/2014 14:48:00 DIS Emergency ISMAEL SOL APRN [facility] ER IRR HEART RATE [id number] 11/28/2014 21:04:00 11/28/2014 21:30:00 DIS Emergency ISMAEL SOL APRN [facility] ER TOOTH ACHE [id number] 09/18/2014 10:34:00 09/25/2014 11:11:00 DIS Outpatient JOSE FRIEDMAN MD [facility] REHAB LUMBAGO AND CERVICALGIA [id number] 09/19/2014 17:05:00 09/19/2014 18:13:00 DIS Emergency SUNITA BERNAL [facility] ER L SIDE FACIAL/DENTAL PAIN [id number] 08/11/2014 14:55:00 08/11/2014 23:59:59 CLS Outpatient BRYANTimaNARAYANFLO Tima MATERIAL CONTROL SPECIALIST [facility] RAD LBP [id number] 08/04/2014 15:27:00 08/04/2014 17:54:00 DIS Emergency ISMAEL SOL THIOKOL OPERATOR [facility] ER FALL [id number] 06/05/2014 15:36:00 06/05/2014 16:31:00 DIS Emergency REZA CORONADO MD [facility] ER CHEST CONGESTION, COUGH [id number] 05/01/2014 01:24:00 05/01/2014 03:36:00 DIS Emergency MIGDALIA RAMON DO [facility] ER BACK PAIN [id number] 04/24/2014 08:45:00 04/24/2014 23:59:59 CLS Outpatient JENNIFER MAYES MD [facility] RAD RUQ PAIN,GOITER [id number] 03/22/2014 13:08:00 03/26/2014 11:55:00 DIS Inpatient JENNIFER MAYES MD [facility] WS LABOR [id number] 03/20/2014 21:50:00 03/21/2014 09:00:00 DIS Inpatient JENNIFER MAYES MD [facility] WS RIB PAIN [id number] 03/14/2014 00:56:00 03/14/2014 01:44:00 DIS Outpatient JENNIFER MAYES MD [facility] WSo PRESSURE [id number] 02/11/2014 21:51:00 02/11/2014 22:50:00 DIS Outpatient JENNIFER MAYES MD [facility] WSo C/O CRAMPING [id number] 11/13/2013 15:06:00 11/13/2013 18:10:00 DIS Outpatient GERBER JONES, JENNIFER G [facility] WATERY DISCHARGE SINCE 1400 [id number] 05/20/2013 08:48:00 05/20/2013 23:59:59 CLS Outpatient EVITA JONES, WOLF Carmona [facility] RAD LOW BACK PAIN,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,BLADDER DISFUNCT [id number] 04/30/2013 14:31:00 04/30/2013 16:18:00 DIS Emergency MEJIA JONES, YAW R [facility] ER LOW BACK/RT HIP PAIN ABSCESS RIGHT THIGH [id number] 04/20/2013 11:49:00 04/20/2013 13:40:00 DIS Emergency ARMANDO JONES, JESSIE Workman [facility] ER RAPID HEART BEAT, SOA [id number] 03/04/2019 15:21:00 ACT Emergency CORNEL JONES, ERIKA Shin [facility] ER LOWER BACK/PELVIS PAIN [id number] 05/18/2015 11:12:00 Document Registration [id number] 05/18/2015 11:12:00 Document Registration [id number] 01/21/2015 00:32:00 Document Registration [id number] 09/25/2014 14:23:00 Document Registration [id number] 12/11/2012 16:00:00 Document Registration [id number] 12/08/2012 15:53:00 Document Registration [id number] 01/26/2012 09:17:00 Document Registration [id number] 01/18/2012 18:33:00 Document Registration [id number] 09/12/2011 15:20:00 Document Registration [id number] 06/27/2011 15:54:00 Document Registration [id number] 05/26/2010 22:10:00 Document Registration [id number] 05/06/2010 09:15:00 Document Registration [id number] 05/18/2015 11:12:53 ACT Document Registration [id number] 03/17/2017 07:05:00 Document Registration
== END 2019-03-04 16:58 | disposition home or self-care (01) ==
LOC: EDUNIT# 15:20 → ER 15:21
DX: M54.5 Low back pain (principal); J45.909 Unspecified asthma, uncomplicated; F41.9 Anxiety disorder, unspecified; F43.10 Post-traumatic stress disorder, unspecified; F31.9 Bipolar disorder, unspecified; Z87.448 Personal history of other diseases of urinary system; Z88.0 Allergy status to penicillin; Z88.8 Allergy status to other drugs, medicaments and biological substances; Z79.52 Long term (current) use of systemic steroids; Z77.22 Contact with and (suspected) exposure to environmental tobacco smoke (acute) (chronic); Z90.89 Acquired absence of other organs; Z90.710 Acquired absence of both cervix and uterus; Z98.890 Other specified postprocedural states
CPT/HCPCS: 72131; 81000; 84703

== ENCOUNTER 2019-05-27 20:35 | Emergency (ER) | payer OTHER ==
[~2019-05-27] VITALS: Ht 167.6 cm; Wt 59.0 kg
[~2019-05-27 20:35] MED LIST changes: +TRAM-42 PO
--- OUTSIDE RECORDS SUMMARY | 2019-05-27 20:41 | XMS REPORT ---
Author Author DEMOND MILLER Organization 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 Name Role Phone DEMOND MILLER Unavailable PROBLEMS Type Condition ICD9-CM Code SOS55-VE Code Onset Dates Condition Status SNOMED Code Problem Generalized anxiety disorder F41.1 Active 84513353 Problem Bipolar disorder, current episode mixed, moderate F31.62 Active 351537299 Problem Acute non intractable tension-type headache G44.209 Active 606124292 Problem Constipation K59.00 Active 71984102 Problem Post traumatic stress disorder F43.10 Active 82142986 Problem Borderline personality disorder F60.3 Active 51279657 Problem Endometriosis N80.9 Active 321056400 Problem Acute right-sided low back pain with right-sided sciatica M54.41 Active 100071501 ALLERGIES No Information ENCOUNTERS Encounter Location Date Diagnosis [facility] [id number] [place] [address] Jun, [facility] [id number] [place] [address] Apr, Bipolar disorder, current episode mixed, moderate F31.62 [facility] [id number] [place] [address] Apr, Bipolar disorder, current episode mixed, moderate F31.62 ; Post traumatic stress disorder F43.10 and Borderline personality disorder F60.3 [facility] [address] [place] [address] March, Bipolar disorder, current episode mixed, moderate F31.62 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 [place] [address] [address] Feb, Pelvic floor dysfunction M62.89 [place] [address] [address] Feb, Bipolar disorder, current episode mixed, moderate F31.62 [facility] [address] [address] Jan, Dehydration E86.0 and Back muscle spasm M62.830 [place] [address] [address] Jan, Bipolar disorder, current episode mixed, moderate F31.62 ; Post traumatic stress disorder F43.10 ; Borderline personality disorder F60.3 and 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 [facility] [id number] [place] [address] Jan, Cough R05 and Viral upper respiratory tract infection J06.9 [place] [id number] [place] [address] Jan, Bipolar disorder, current episode mixed, moderate F31.62 [place] [id number] [place] [address] Dec, Bipolar disorder, current episode mixed, moderate F31.62 [place] [id number] [place] [address] Nov, Bipolar disorder, current episode mixed, moderate F31.62 [facility] [address] [place] [address] Oct, Sore throat J02.9 [facility] [id number] [place] [address] Oct, Abdominal pain R10.9 ; Low back pain M54.5 ; Left shoulder pain M25.512 and Constipation K59.00 [facility] [address] [address] Oct, Bipolar disorder, current episode mixed, moderate F31.62 ; Post traumatic stress disorder F43.10 and Borderline personality disorder F60.3 [place] [address] [address] Sep, Bipolar disorder, current episode mixed, moderate F31.62 [facility] [address] [address] Aug, Bipolar disorder, current episode mixed, moderate F31.62 [facility] [id number] [place] [address] Jul, Thrombophlebitis I80.9 and Pelvic pain R10.2 [place] [id number] [place] [address] 05 Jul, 2018 Bipolar disorder, current episode mixed, moderate F31.62 ; Post traumatic stress disorder F43.10 and Borderline personality disorder F60.3 [facility] [id number] [place] [address] Jun, Bipolar disorder, current episode mixed, moderate F31.62 [place] [id number] [place] [address] May, Palpitations R00.2 [place] [address] [address] May, Palpitations R00.2 [facility] [id number] [place] [address] May, Palpitations R00.2 and Frequent bowel movements R19.4 [facility] [address] [place] [address] 05 May, 2018 Bipolar disorder, current episode mixed, moderate F31.62 ; Post traumatic stress disorder F43.10 and Borderline personality disorder F60.3 [facility] [address] [place] [id number] 15 Apr, 2018 Dental examination Z01.20 [facility] [id number] [place] [address] 15 Apr, 2018 [facility] [id number] [place] [address] 15 Apr, 2018 Dental examination Z01.20 [facility] [id number] [place] [address] 15 Apr, 2018 Tooth pain K08.89 [place] [id number] [place] [address] 06 Apr, 2018 Bipolar disorder, current episode mixed, moderate F31.62 ; Post traumatic stress disorder F43.10 and Borderline personality disorder F60.3 [facility] [id number] [place] [address] March, Abdominal pain R10.9 ; UTI symptoms R39.9 and Other microscopic hematuria R31.29 [place] [id number] [place] [address] March, [place] [id number] [place] [address] March, Bipolar disorder, current episode mixed, moderate F31.62 ; Post traumatic stress disorder F43.10 and Borderline personality disorder F60.3 [place] [id number] [place] [address] Feb, Encounter for immunization Z23 [place] [id number] [place] [address] Feb, Bipolar disorder, current episode mixed, moderate F31.62 ; Post traumatic stress disorder F43.10 and Borderline personality disorder F60.3 [place] [id number] [place] [address] Feb, Bipolar disorder, current episode mixed, moderate F31.62 ; Post traumatic stress disorder F43.10 ; Borderline personality disorder F60.3 and 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 [place] [address] [place] [address] Jan, Encounter for immunization Z23 [place] [address] [address] Jan, [place] [address] [address] Jan, Bipolar disorder, current episode mixed, moderate F31.62 [facility] [address] [address] Jan, Lumbar back pain M54.5 [place] [address] [address] Dec, Low back pain M54.5 [place] [address] [address] Dec, Bipolar disorder, current episode mixed, moderate F31.62 [place] [id number] [place] [address] Dec, Generalized anxiety disorder F41.1 and Bipolar disorder, current episode mixed, moderate F31.62 [facility] [id number] [place] [address] Nov, Acute non intractable tension-type headache G44.209 [facility] [address] [address] Nov, Bipolar disorder, current episode mixed, moderate F31.62 ; Post traumatic stress disorder F43.10 and Borderline personality disorder F60.3 [place] [id number] [place] [address] Nov, Bipolar disorder, current episode mixed, moderate F31.62 [facility] [place] [address] [address] Nov, Abdominal pain R10.9 ; History of PCOS Z87.42 ; History of endometriosis Z87.42 and Pelvic pain R10.2 [place] [address] [address] Nov, [facility] [place] [address] [address] Oct, History of PCOS Z87.42 ; History of endometriosis Z87.42 and Pain R52 [address] [address] Oct, Bipolar disorder, current episode mixed, moderate F31.62 ; Post traumatic stress disorder F43.10 and Borderline personality disorder F60.3 [place] [address] [address] Oct, Bipolar disorder, current episode mixed, moderate F31.[address] [address] Sep, Bipolar disorder, current episode mixed, moderate F31.62 ; Post traumatic stress disorder F43.10 ; Borderline personality disorder F60.3 and 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 [place] [id number] [place] [address] Sep, Bipolar disorder, current episode mixed, moderate F31.62 [facility] [address] [address] Sep, Endometriosis N80.9 and Acute right-sided low back pain with right- sided sciatica M54.[address] [address] Aug, [place] [address] [address] Aug, Bipolar disorder, current episode mixed, moderate F31.62 ; Post traumatic stress disorder F43.10 and Borderline personality disorder F60.3 [facility] [address] [place] [address] 11 Aug, 2017 Bipolar disorder, current episode mixed, moderate F31.62 ; Post traumatic stress disorder F43.10 and Borderline personality disorder F60.3 [facility] [id number] [place] [address] 13 Jul, 2017 Bipolar disorder, current episode mixed, moderate F31.62 ; Post traumatic stress disorder F43.10 and Borderline personality disorder F60.3 [facility] [address] [place] [address] 11 Jul, 2017 Pharyngitis, unspecified etiology J02.9 and Streptococcal pharyngitis J02.0 [facility] [id number] [place] [address] 16 Jun, 2017 Bipolar disorder, current episode mixed, moderate F31.62 ; Post traumatic stress disorder F43.10 and Borderline personality disorder F60.3 [place] [address] [place] [address] May, [place] [id number] [place] [address] May, [facility] [id number] [place] [address] May, Bipolar disorder, current episode mixed, moderate F31.62 and Generalized anxiety disorder F41.1 [place] [id number] [place] [address] March, Bipolar disorder, current episode mixed, moderate F31.62 and Generalized anxiety disorder F41.1 [place] [address] [place] [address] 04 Mar, 2017 Pelvic pain R10.2 [facility] [address] [place] [address] March, [facility] [id number] [place] [id number] Feb, Bipolar disorder, current episode mixed, moderate F31.62 and Generalized anxiety disorder F41.1 [facility] [id number] [place] [address] Jan, [facility] [id number] [place] [address] Jan, Bipolar disorder, current episode mixed, moderate F31.62 [facility] [id number] [place] [address] Jan, Bipolar disorder, current episode mixed, moderate F31.62 [facility] [id number] [place] [address] Jan, Bilateral low back pain without sciatica M54.5 [facility] [id number] [place] [id number] Jan, Dental caries K02.9 and Dental examination Z01.20 [facility] [id number] [place] [id number] Jan, Encounter for dental examination and cleaning without abnormal findings Z01.20 [facility] [address] [place] [address] Jan, Bipolar disorder, current episode mixed, moderate F31.62 and Generalized anxiety disorder F41.1 [facility] [address] [place] [address] Dec, [facility] [id number] [place] [address] Dec, Bipolar disorder, current episode mixed, moderate F31.62 and Generalized anxiety disorder F41.1 [place] [id number] [place] [address] Dec, Other fatigue R53.83 and Orthostatic hypotension I95.1 [facility] [address] [address] Nov, Dental examination Z01.20 [facility] [address] [place] [address] Nov, Bronchitis J40 [facility] [id number] [place] [address] Oct, Generalized anxiety disorder F41.1 [place] [id number] [place] [address] Sep, Bipolar disorder, current episode mixed, moderate F31.62 and Generalized anxiety disorder F41.1 [place] [address] [id number] [place] [address] Sep, Bipolar disorder, current episode mixed, moderate F31.62 and Generalized anxiety disorder F41.1 [facility] [address] [place] [address] Jul, Upper respiratory tract infection, unspecified type J06.9 [place] [id number] [place] [address] Jun, Bipolar disorder, current episode mixed, moderate F31.62 and Generalized anxiety disorder F41.1 [place] [address] [place] [address] Apr, [facility] [id number] [place] [address] Apr, Encounter for test, result positive Z32.01 [place] [id number] [place] [address] March, [facility] [id number] [place] [address] March, Bipolar disorder, current episode mixed, moderate F31.62 and Generalized anxiety disorder F41.1 [place] [address] [place] [address] [address] March, Bipolar disorder, current episode mixed, moderate F31.62 and Generalized anxiety disorder F41.1 [facility] [address] [address] March, [facility] [address] [place] [address] March, [facility] [id number] [place] [address] Feb, [facility] [address] [place] [address] Feb, [facility] [id number] [place] [address] Feb, Bipolar disorder, current episode mixed, moderate F31.62 and Generalized anxiety disorder F41.1 [facility] [id number] [place] [address] Jan, Abdominal pain R10.9 [facility] [address] [place] [address] Jan, [facility] [address] [place] [address] Dec, Dental examination Z01.20 [facility] [address] [place] [address] Dec, Dental examination Z01.20 and Dental caries K02.9 [facility] [address] [place] [address] 15 Dec, 2015 Bipolar disorder, current episode mixed, moderate F31.62 and Generalized anxiety disorder F41.1 [facility] [address] [address] Dec, [facility] [address] [address] Nov, Bipolar disorder, current episode mixed, moderate F31.62 ; Generalized anxiety disorder F41.1 and Seizure-like activity R56.9 [facility] [id number] [place] [address] Oct, [place] [address] [id number] [place] [address] Oct, Bipolar disorder, current episode mixed, moderate F31.62 [place] [id number] [place] [address] 14 Oct, 2015 Well woman exam Z01.419 [...] Tobacco use Z72.0 and Hot flashes N95.1 [facility] [id number] [place] [address] 09 Oct, 2015 Seizure-like activity R56.9 and Irregular periods N92.6 [place] [id number] [place] [address] 07 Oct, 2015 Bipolar disorder, current episode mixed, moderate F31.62 ; Generalized anxiety disorder F41.1 and Underweight R63.6 [facility] [address] [place] [address] Oct, [place] [address] [id number] [place] [address] Oct, Generalized anxiety disorder F41.1 and Unspecified mood [affective] disorder F39 [facility] [address] [place] [address] Oct, Back pain M54.9 and Anxiety F41.9 [facility] [id number] [place] [address] Oct, [facility] [id number] [place] [address] Sep, Arm pain, left M79.602 [facility] [id number] [place] [address] Sep, [facility] [address] [id number] Sep, Dental examination Z01.20 and Dental caries K02.9 [facility] [address] [address] Sep, Generalized anxiety disorder F41.1 and Unspecified episodic mood disorder F39 [facility] [id number] [place] [address] Sep, Bilateral low back pain without sciatica M54.5 and Seizure-like activity R56.9 [facility] [id number] [place] [address] Aug, [facility] [address] [address] Aug, [facility] [id number] [place] [address] Aug, [facility] [id number] [place] [address] Aug, Visual changes H53.9 and Bilateral low back pain without sciatica M54.5 [facility] [id number] [place] [address] Jul, [facility] [address] [address] Jun, Bipolar I disorder, most recent episode (or current) mixed, moderate 296.62 ; Generalized anxiety disorder 300.02 and High risk medication use V58.69 [facility] [id number] [place] [address] Jun, [facility] [id number] [place] [address] May, [facility] [id number] [place] [address] May, Bipolar I disorder, most recent episode (or current) mixed, moderate 296.62 and Generalized anxiety disorder 300.02 [facility] [address] [place] [id number] [place] [id number] May, Dental examination V72.2 [facility] [id number] [place] [address] March, Bipolar I disorder, most recent episode (or current) mixed, moderate 296.62 and Generalized anxiety disorder 300.02 [facility] [id number] [place] [address] March, [facility] [id number] [place] [address] March, [facility] [id number] [place] [address] March, Underweight 783.22 ; Hand pain, right 729.5 and Reflux gastritis 535.40 [facility] [id number] [place] [address] Feb, [facility] [id number] [place] [address] Feb, [facility] [id number] [place] [address] Jan, [facility] [id number] [place] [phone] Jan, [facility] [id number] [place] [address] 16 Jan, 2015 [facility] [id number] [place] [address] Jan, [facility] [place] [facility] [address] [id number] [place] [address] 13 Jan, 2015 [facility] [place] [facility] [address] [id number] [place] [address] Jan, [facility] [place] [facility] [address] [id number] [place] [address] 05 Jan, 2014 [facility] [place] [facility] [address] [id number] [place] [address] 05 Jan, 2014 [facility] [place] [facility] [address] [id number] [place] [address] Jan, [facility] [place] [facility] [address] [id number] [place] [address] Jan, [facility] [place] [facility] [address] [facility] [id number] [place] [address] Jan, [facility] [place] [facility] [address] [id number] [place] [id number] Jan, [facility] [place] [facility] [address] [id number] [place] [address] Dec, [facility] [place] [facility] [address] [facility] [id number] [place] [id number] Dec, 2014 [facility] [place] [facility] [address] [facility] [id number] [place] [id number] Dec, 2014 [facility] [place] [facility] [address] [id number] [address] Dec, 2014 [facility] [place] [facility] [address] [id number] [place] [id number] 18 Dec, 2014 [facility] [place] [facility] [address] [id number] [place] [id number] 17 Dec, 2014 [facility] [place] [facility] [address] [facility] [id number] [place] [id number] Dec, 2014 [facility] [place] [facility] [address] [id number] [place] [id number] Dec, 2014 [facility] [place] [facility] [address] [id number] [place] [id number] Dec, 2014 [facility] [place] [facility] [address] [id number] [place] [id number] Dec, 2014 [facility] [place] [facility] [address] [facility] [id number] [place] [id number] Dec, 2014 [facility] [place] [facility] [address] [id number] [place] [id number] Dec, 2014 [facility] [place] [facility] [address] [facility] [id number] [place] [id number] Dec, 2014 [facility] [place] [facility] [address] [facility] [facility] [id number] [place] [address] Dec, 2014 [facility] [place] [facility] [address] [facility] [id number] [place] [address] Dec, 2014 [facility] [place] [facility] [address] [facility] [id number] [place] [address] Dec, 2014 [facility] [place] [facility] [address] [facility] [id number], [place] [address] Dec, 2014 [facility] [place] [facility] [address] [id number] [address] Dec, 2014 [facility] [place] [facility] [address] [facility] [id number], [place] [address] Dec, 2014 [facility] [place] [facility] [address] [facility] [id number], [place] [address] Nov, [facility] [place] [facility] [address] [facility] [id number], [place] [address] Nov, [facility] [place] [facility] [address] [facility] [id number], [place] [address] Nov, [facility] [place] [facility] [address] [facility] [id number], [place] [address] Nov, [facility] [place] [facility] [address] [id number] [place] [address] Nov, [facility] [place] [facility] [address] [id number] [place] [address] Nov, [facility] [place] [facility] [address] [id number] [place] [id number] Nov, [facility] [place] [facility] [address] [id number] [place] [address] Nov, [facility] [place] [facility] [address] [id number] [place] [address] Nov, [facility] [place] [facility] [address] [id number] [place] [id number] Nov, [facility] [place] [facility] [address] [id number] [place] [address] Nov, [facility] [place] [facility] [address] [id number] [place] [address] Nov, [facility] [place] [facility] [address] [id number] [place] [address] Oct, [facility] [place] [facility] [address] [id number] [place] [address] Oct, [facility] [place] [facility] [address] [id number] [place] [address] Oct, [facility] [place] [facility] [address] [id number] [place] [address] Oct, [facility] [place] [facility] [address] [id number] [place] [address] Oct, [facility] [place] [facility] [address] [id number] [place] [address] Oct, [facility] [place] [facility] [address] [id number] [place] [address] Oct, [facility] [place] [facility] [address] [id number] [place] [address] Oct, [facility] [place] [facility] [address] [id number] [place] [address] Oct, [facility] [place] [facility] [address] [id number] [place] [address] Oct, [facility] [place] [facility] [address] [id number] [place] [address] Oct, [facility] [place] [facility] [address] [id number] [place] [address] Oct, [facility] [place] [facility] [address] [id number] [place] [address] Sep, [facility] [place] [facility] [address] [id number] [place] [address] Sep, [facility] [place] [facility] [address] [id number] [place] [address] Sep, [facility] [place] [facility] [address] [id number] [place] [address] Sep, [facility] [place] [facility] [address] [facility] [id number] [place] [address] Sep, [facility] [place] [facility] [address] [facility] [id number] [place] [address] Sep, [facility] [place] [facility] [address] [id number] [place] [address] Sep, [facility] [place] [facility] [address] [id number] [place] [address] Sep, [facility] [place] [facility] [address] [id number] [place] [address] Aug, [facility] [place] [facility] [address] [id number] [place] [address] Aug, [facility] [place] [facility] [address] [id number] [place] [address] Aug, [facility] [place] [facility] [address] [id number] [place] [address] Aug, [facility] [place] [facility] [address] [id number] [place] [address] Aug, [facility] [place] [facility] [address] [id number] [place] [address] Aug, [facility] [place] [facility] [address] [id number] [place] [address] Aug, [facility] [place] [facility] [address] [id number] [place] [address] Aug, [facility] [place] [facility] [address] [id number] [place] [address] Aug, [facility] [place] [facility] [address] [id number] [place] [address] Aug, [facility] [place] [facility] [address] [id number] [place] [address] Aug, [facility] [place] [facility] [address] [id number] [place] [address] Aug, [facility] [place] [facility] [address] [id number], [place] [address] Aug, [facility] [place] [facility] [address] [id number], [place] [address] Jul, [facility] [place] [facility] [address] [id number], [place] [address] 22 Jul, 2014 [facility] [place] [facility] [address] [id number] [place] [address] Jul, [facility] [place] [facility] [address] [id number] [place] [address] Jul, [facility] [place] [facility] [address] [id number], [place] [address] Jun, [facility] [place] [facility] [address] [id number], [place] [address] Jun, [facility] [place] [facility] [address] [id number] [place] [address] Jun, [facility] [place] [facility] [address] [id number] [place] [address] Jun, [facility] [place] [facility] [address] [id number] [place] [address] Jun, [facility] [place] [facility] [address] [id number] [place] [address] Jun, [facility] [place] [facility] [address] [id number] [place] [address] May, [facility] [place] [facility] [address] [id number] [place] [address] May, [facility] [place] [facility] [address] [id number] [place] [address] May, [facility] [place] [facility] [address] [id number] [place] [address] May, [facility] [place] [facility] [address] [id number] [place] [address] Apr, [facility] [place] [facility] [address] [id number] [place] [address] Apr, [facility] [place] [facility] [address] [id number] [place] [address] March, [facility] [place] [facility] [address] [id number] [place] [address] March, [facility] [place] [facility] [address] [id number] [place] [address] March, [facility] [place] [facility] [address] [id number] [place] [address] March, [facility] [place] [facility] [address] [id number] [place] [address] March, [facility] [place] [facility] [address] [id number] [place] [address] March, [facility] [place] [facility] [address] [id number] [place] [address] Feb, [facility] [place] [facility] [address] [id number] [place] [address] Feb, [facility] [place] [facility] [address] [id number] [place] [address] Dec, [facility] [place] [facility] [address] [id number] [place] [address] Dec, [facility] [place] [facility] [address] [id number] [place] [address] Nov, [facility] [place] [facility] [address] [id number] [place] [address] Nov, [facility] [place] [facility] [address] [id number] [place] [address] Sep, [facility] [place] [facility] [address] [id number] [place] [address] Sep, [facility] [place] [facility] [address] [id number] [place] [address] Sep, [facility] [place] [facility] [address] [id number] [place] [address] Sep, [facility] [place] [facility] [address] [id number] [place] [address] Sep, [facility] [place] [facility] [address] [id number] [place] [address] Sep, [facility] [place] [facility] [address] [id number] [place] [address] Sep, [facility] [place] [facility] [address] [id number] [place] [address] Aug, [facility] [place] [facility] [address] [id number] [place] [address] Aug, [facility] [place] [facility] [address] [id number] [place] [address] Aug, [facility] [place] [facility] [address] [id number] [place] [address] Aug, [facility] [place] [facility] [address] [id number] [place] [address] Aug, [facility] [place] [facility] [address] [id number] [place] [address] Aug, [facility] [place] [facility] [address] [id number] [place] [address] Jul, [facility] [place] [facility] [address] [id number] [place] [address] Jul, [facility] [place] [facility] [address] [id number] [place] [address] 16 Jul, 2013 [facility] [place] [facility] [address] [id number], [place] [address] Jul, [facility] [place] [facility] [address] [id number] [place] [address] Jun, [facility] [place] [facility] [address] [id number] [place] [address] Jun, [facility] [place] [facility] [address] [id number], [place] [address] Jun, [facility] [place] [facility] [address] [id number], [place] [address] Jun, [facility] [place] [facility] [address] [id number] [place] [address] Jun, [facility] [place] [facility] [address] [id number], [place] [address] Jun, [facility] [place] [facility] [address] [id number], [place] [address] Jun, [facility] [place] [facility] [address] [id number] [place] [address] 23 May, 2012 [facility] [place] [facility] [address] [id number] [place] [address] 23 May, 2012 [facility] [place] [facility] [address] [id number] [place] [address] 16 May, 2012 [facility] [place] [facility] [address] [id number] [place] [address] 15 May, 2012 [facility] [place] [facility] [address] [id number] [place] [address] 13 May, 2012 [facility] [place] [facility] [address] [id number] [place] [address] 05 May, 2013 [facility] [place] [facility] [address] [id number] [place] [address] 03 May, 2013 [facility] [place] [facility] [address] [id number] [place] [address] 28 Apr, 2013 [facility] [place] [facility] [address] [id number] [place] [address] 27 Apr, 2013 [facility] [place] [facility] [address] [id number] [place] [address] 27 Apr, 2013 [facility] [place] [facility] [address] [id number] [place] [address] 26 Apr, 2013 [facility] [place] [facility] [address] [id number] [place] [address] 20 Apr, 2013 [facility] [place] [facility] [address] [id number] [place] [address] 18 Apr, 2013 [facility] [place] [facility] [address] [id number] [place] [address] 18 Apr, 2013 [facility] [place] [facility] [address] [id number] [place] [address] 18 Apr, 2013 [facility] [place] [facility] [address] [id number] [place] [address] 17 Apr, 2013 [facility] [place] [facility] [address] [id number] [place] [address] 14 Apr, 2013 [facility] [address] [id number] [place] [address] 14 Apr, 2013 [facility] [address] [id number] [place] [address] 11 Apr, 2013 [facility] [address] [id number] [place] [address] 10 Apr, 2013 [facility] [address] [id number] [place] [address] 09 Apr, 2013 [facility] [address] [id number] [place] [address] 07 Apr, 2013 [facility] [address] [id number] [place] [address] 06 Apr, 2013 [facility] [address] [id number] [place] [address] 06 Apr, 2013 [facility] [address] [id number] [place] [address] 05 Apr, 2013 [facility] [address] [id number] [place] [address] Apr, [facility] [address] [id number] [place] [address] March, [facility] [address] [id number] [place] [address] March, [facility] [place] [facility] [address] [id number] [place] [address] March, [facility] [place] [facility] [address] [id number] [place] [address] March, [facility] [place] [facility] [address] [id number] [place] [address] March, [facility] [place] [facility] [address] [id number] [place] [address] March, [facility] [address] [id number] [place] [address] March, [facility] [place] [facility] [address] [id number] [place] [address] Feb, [facility] [address] [id number] [place] [address] Feb, [facility] [place] [facility] [address] [id number] [place] [address] 27 Jan, 2013 [facility] [address] [id number] [place] [address] 18 Jan, 2013 [facility] [place] [facility] [address] [id number] [place] [address] 15 Jan, 2013 [facility] [address] [id number] [place] [address] 14 Jan, 2013 [facility] [place] [facility] [address] [id number] [place] [address] 13 Jan, 2013 [facility] [place] [facility] [address] [id number] [place] [address] 12 Jan, 2013 [facility] [place] [facility] [address] [id number] [place] [address] 11 Jan, 2013 [facility] [place] [facility] [address] [id number] [place] [address] 09 Jan, 2013 [facility] [place] [facility] [address] [id number] [place] [address] 08 Jan, 2013 [facility] [place] [facility] [address] [id number] [place] [address] 07 Jan, 2013 [facility] [place] [facility] [address] [id number] [place] [address] 06 Jan, 2013 [facility] [place] [facility] [address] [id number] [place] [address] 17 Nov, 2012 [facility] [place] [facility] [address] [id number] [place] [address] Oct, [facility] [place] [facility] [address] [id number] [place] [address] Oct, [facility] [place] [facility] [address] [id number] [place] [address] Oct, [facility] [place] [facility] [address] [id number] [place] [address] Oct, [facility] [place] [facility] [address] [id number] [place] [address] Sep, [facility] [place] [facility] [address] [id number] [place] [address] 30 Sep, 2012 [facility] [place] [facility] [address] [id number] [place] [address] Sep, [facility] [place] [facility] [address] [id number] [place] [address] Sep, [facility] [place] [facility] [address] [id number] [place] [address] Sep, [facility] [place] [facility] [address] [id number] [place] [address] Sep, [facility] [place] [facility] [address] [id number] [place] [address] 16 Sep, 2012 [facility] [place] [facility] [address] [id number] [place] [address] Sep, [facility] [place] [facility] [address] [id number] [place] [address] Sep, [facility] [place] [facility] [address] [id number] [place] [address] Sep, [facility] [place] [facility] [address] [id number] [place] [address] Sep, [facility] [place] [facility] [address] [id number] [place] [address] Aug, [facility] [place] [facility] [address] [id number] [place] [address] Aug, [facility] [place] [facility] [address] [id number] [place] [address] Aug, [facility] [place] [facility] [address] [id number] [place] [address] 28 Jul, 2012 [facility] [place] [facility] [address] [id number] [place] [address] 25 Jul, 2012 [facility] [place] [facility] [address] [id number] [place] [address] 19 Jul, 2012 [facility] [place] [facility] [address] [id number] [place] [address] 17 Jul, 2012 [facility] [place] [facility] [address] [id number] [place] [address] 20 Jun, 2012 [facility] [place] [facility] [address] [id number] [place] [address] 16 Jun, 2012 [facility] [place] [facility] [address] [id number] [place] [address] 15 Jun, 2012 [facility] [place] [facility] [address] [id number] [place] [address] Jun, [facility] [place] [facility] [address] [id number] [place] [address] Jun, [facility] [place] [facility] [address] [id number] [place] [address] March, [facility] [place] [facility] [address] [id number] [place] [address] Feb, [facility] [place] [facility] [address] [id number] [place] [address] Jan, [facility] [place] [facility] [address] [id number] [place] [address] Jan, [facility] [place] [facility] [address] [id number] [place] [address] 22 Jan, 2012 [facility] [address] [id number] [place] [address] 14 Jan, 2012 [facility] [place] [facility] [address] [id number] [place] [address] 14 Jan, 2012 [facility] [address] [id number] [place] [address] 14 Jan, 2012 [facility] [place] [facility] [address] [id number] [place] [address] 28 Dec, 2011 [facility] [place] [facility] [address] [id number] [place] [address] 27 Dec, 2011 [facility] [place] [facility] [address] [id number] [place] [address] 23 Dec, 2011 [facility] [place] [facility] [address] [id number] [place] [address] 21 Dec, 2011 [facility] [place] [facility] [address] [id number] [place] [address] 20 Dec, 2011 [facility] [place] [facility] [address] [id number] [place] [address] 19 Dec, 2011 [facility] [address] [id number] [place] [id number] 17 Dec, 2011 [facility] [place] [facility] [address] [id number] [place] [id number] 16 Dec, 2011 [facility] [place] [facility] [address] [id number] [place] [id number] 31 Nov, 2011 [facility] [place] [facility] [address] [id number] [place] [id number] Oct, [facility] [place] [facility] [address] [id number] [place] [id number] 18 Sep, 2011 [facility] [place] [facility] [address] [id number] [place] [id number] Sep, [facility] [address] [facility] [id number] [address] Sep, [facility] [address] [id number] [address] Sep, [facility] [address] [id number] [address] Sep, [facility] [address] [id number] [address] Sep, [facility] [address] [id number] [address] Jan, [facility] [address] [id number] [address] Apr, IMMUNIZATIONS No Known Immunizations SOCIAL HISTORY [...] History Left ovary removed 12/2017 Hospitalization History [facility] Admission x4 2009 most recent admission Hospitalization History [facility]; overdose 2010 Hospitalization History child 11/29/2016 Hospitalization History [facility] 02/2019
--- OUTSIDE RECORDS SUMMARY | 2019-05-27 20:42 | XMS REPORT ---
Author Author GODWIN Sparrow Organization [facility] Address [address] [place] [address] Care Team Providers Care Research Assistant Professor Name Role Phone GODWIN Sparrow Unavailable PROBLEMS Type Condition ICD9-CM Code UAC42-HH Code Onset Dates Condition Status SNOMED Code Problem Generalized anxiety disorder F41.1 Active 96428531 Problem Bipolar disorder, current episode mixed, moderate F31.62 Active 576122917 Problem Acute non intractable tension-type headache G44.209 Active 687744870 Problem Constipation K59.00 Active 66370599 Problem Post traumatic stress disorder F43.10 Active 61291209 Problem Borderline personality disorder F60.3 Active 76088269 Problem Endometriosis N80.9 Active 741607625 Problem Acute right-sided low back pain with right-sided sciatica M54.41 Active 326170461 ALLERGIES No Information ENCOUNTERS Encounter Location Date Diagnosis [facility] [id number] [place] [id number] Jun, [facility] [id number] [place] [address] Apr, Bipolar disorder, current episode mixed, moderate F31.62 [facility] [id number] [place] [address] Apr, Bipolar disorder, current episode mixed, moderate F31.62 ; Post traumatic stress disorder F43.10 and Borderline personality disorder F60.3 [facility] [id number] [place] [address] March, Bipolar disorder, current episode mixed, moderate F31.62 [facility] [id number] [place] [id number] March, Bipolar disorder, current episode mixed, moderate F31.62 [facility] [id number] [place] [phone] March, Bronchitis J40 [facility] [address] [address] Feb, Bipolar disorder, current episode mixed, moderate F31.62 ; Post traumatic stress disorder F43.10 ; Borderline personality disorder F60.3 and Other longterm (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 Z79.899 [place] [id number] [place] [address] Feb, Pelvic floor dysfunction M62.89 [place] [id number] [place] [address] Feb, Bipolar disorder, current episode mixed, moderate F31.62 [facility] [id number] [place] [address] Jan, Dehydration E86.0 and Back muscle spasm M62.830 [place] [id number] [place] [address] Jan, Bipolar disorder, current episode mixed, moderate F31.62 ; Post traumatic stress disorder F43.10 ; Borderline personality disorder F60.3 and Other longterm (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 Z79.899 [facility] [id number] [place] [address] Jan, Cough R05 and Viral upper respiratory tract infection J06.9 [place] [id number] [place] [address] Jan, Bipolar disorder, current episode mixed, moderate F31.62 [place] [id number] [place] [address] Dec, Bipolar disorder, current episode mixed, moderate F31.62 [place] [id number] [place] [address] Nov, Bipolar disorder, current episode mixed, moderate F31.62 [facility] [id number] [place] [address] Oct, Sore throat J02.9 [facility] [id number] [place] [address] Oct, Abdominal pain R10.9 ; Low back pain M54.5 ; Left shoulder pain M25.512 and Constipation K59.00 [facility] [id number] [place] [address] Oct, Bipolar disorder, current episode mixed, moderate F31.62 ; Post traumatic stress disorder F43.10 and Borderline personality disorder F60.3 [place] [address] [address] Sep, Bipolar disorder, current episode mixed, moderate F31.62 [place] [id number] [place] [address] Aug, Bipolar disorder, current episode mixed, moderate F31.62 [facility] [id number] [place] [address] Jul, Thrombophlebitis I80.9 and Pelvic pain R10.2 [place] [id number] [place] [id number] 05 Jul, 2018 Bipolar disorder, current episode mixed, moderate F31.62 ; Post traumatic stress disorder F43.10 and Borderline personality disorder F60.3 [place] [id number] [place] [address] Jun, Bipolar disorder, current episode mixed, moderate F31.62 [place] [id number] [place] [address] May, Palpitations R00.2 [place] [id number] [place] [address] May, Palpitations R00.2 [place] [id number] [place] [address] May, Palpitations R00.2 and Frequent bowel movements R19.4 [facility] [address] [place] [address] 05 May, 2018 Bipolar disorder, current episode mixed, moderate F31.62 ; Post traumatic stress disorder F43.10 and Borderline personality disorder F60.3 [facility] [address] [place] [id number] 15 Apr, 2018 Dental examination Z01.20 [facility] [id number] [place] [address] 15 Apr, 2018 [facility] [id number] [place] [address] 15 Apr, 2018 Tooth pain K08.89 [place] [id number] [place] [address] 15 Apr, 2018 Dental examination Z01.20 [facility] [id number] [place] [id number] 06 Apr, 2018 Bipolar disorder, current episode mixed, moderate F31.62 ; Post traumatic stress disorder F43.10 and Borderline personality disorder F60.3 [facility] [id number] [place] [address] March, Abdominal pain R10.9 ; UTI symptoms R39.9 and Other microscopic hematuria R31.29 [place] [id number] [place] [address] March, [place] [id number] [place] [address] March, Bipolar disorder, current episode mixed, moderate F31.62 ; Post traumatic stress disorder F43.10 and Borderline personality disorder F60.3 [place] [id number] [place] [address] Feb, Encounter for immunization Z23 [place] [id number] [place] [address] Feb, Bipolar disorder, current episode mixed, moderate F31.62 ; Post traumatic stress disorder F43.10 and Borderline personality disorder F60.3 [place] [address] [address] Feb, Bipolar disorder, current episode mixed, moderate F31.62 ; Post traumatic stress disorder F43.10 ; Borderline personality disorder F60.3 and 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 [place] [address] [address] Jan, Encounter for immunization Z23 [place] [address] [address] Jan, [place] [address] [address] Jan, Bipolar disorder, current episode mixed, moderate F31.62 [facility] [address] [address] Jan, Lumbar back pain M54.5 [place] [address] [address] Dec, Low back pain M54.5 [facility] [address] [address] 13 Dec, 2017 Bipolar disorder, current episode mixed, moderate F31.62 [place] [id number] [place] [address] Dec, Generalized anxiety disorder F41.1 and Bipolar disorder, current episode mixed, moderate F31.62 [facility] [id number] [place] [address] Nov, Acute non intractable tension-type headache G44.209 [facility] [address] [id number] Nov, Bipolar disorder, current episode mixed, moderate F31.62 ; Post traumatic stress disorder F43.10 and Borderline personality disorder F60.3 [place] [address] [place] [address] Nov, Bipolar disorder, current episode mixed, moderate F31.62 [facility] [place] [address] [address] Nov, Abdominal pain R10.9 ; History of PCOS Z87.42 ; History of endometriosis Z87.42 and Pelvic pain R10.2 [place] [address] [address] Nov, [facility] [address] [address] Oct, History of PCOS Z87.42 ; History of endometriosis Z87.42 and Pain R52 [place] [address] [address] Oct, Bipolar disorder, current episode mixed, moderate F31.62 ; Post traumatic stress disorder F43.10 and Borderline personality disorder F60.3 [place] [id number] [place] [address] Oct, Bipolar disorder, current episode mixed, moderate F31.62 [place] [id number] [place] [address] Sep, Bipolar disorder, current episode mixed, moderate F31.62 ; Post traumatic stress disorder F43.10 ; Borderline personality disorder F60.3 and 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 [place] [id number] [place] [address] Sep, Bipolar disorder, current episode mixed, moderate F31.62 [facility] [place] [address] [address] Sep, Endometriosis N80.9 and Acute right-sided low back pain with right- sided sciatica M54.41 [place] [address] [address] Aug, [facility] [address] [address] Aug, Bipolar disorder, current episode mixed, moderate F31.62 ; Post traumatic stress disorder F43.10 and Borderline personality disorder F60.3 [facility] [address] [address] 11 Aug, 2017 Bipolar disorder, current episode mixed, moderate F31.62 ; Post traumatic stress disorder F43.10 and Borderline personality disorder F60.3 [facility] [address] [address] 13 Jul, 2017 Bipolar disorder, current episode mixed, moderate F31.62 ; Post traumatic stress disorder F43.10 and Borderline personality disorder F60.3 [facility] [address] [address] 11 Jul, 2017 Pharyngitis, unspecified etiology J02.9 and Streptococcal pharyngitis J02.0 [facility] [address] [place] [address] Jun, Bipolar disorder, current episode mixed, moderate F31.62 ; Post traumatic stress disorder F43.10 and Borderline personality disorder F60.3 [facility] [address] [address] May, [place] [address] [place] [address] May, [facility] [id number] [place] [address] May, Bipolar disorder, current episode mixed, moderate F31.62 and Generalized anxiety disorder F41.1 [place] [id number] [place] [address] March, Bipolar disorder, current episode mixed, moderate F31.62 and Generalized anxiety disorder F41.1 [place] [address] [place] [address] March, Pelvic pain R10.2 [facility] [address] [place] [address] March, [facility] [id number] [place] [address] Feb, Bipolar disorder, current episode mixed, moderate F31.62 and Generalized anxiety disorder F41.1 [facility] [id number] [place] [address] Jan, [facility] [id number] [place] [address] Jan, Bipolar disorder, current episode mixed, moderate F31.62 [facility] [id number] [place] [address] Jan, Bipolar disorder, current episode mixed, moderate F31.62 [facility] [id number] [place] [address] Jan, Bilateral low back pain without sciatica M54.5 [facility] [id number] [place] [id number] Jan, Dental caries K02.9 and Dental examination Z01.20 [facility] [id number] [place] [address] [id number] Jan, Encounter for dental examination and cleaning without abnormal findings Z01.20 [facility] [address] [place] [address] Jan, Bipolar disorder, current episode mixed, moderate F31.62 and Generalized anxiety disorder F41.1 [facility] [address] [place] [address] Dec, [facility] [id number] [place] [address] Dec, Bipolar disorder, current episode mixed, moderate F31.62 and Generalized anxiety disorder F41.1 [facility] [id number] [place] [address] 03 Dec, 2016 Other fatigue R53.83 and Orthostatic hypotension I95.1 [facility] [address] [place] [id number] Nov, Dental examination Z01.20 [facility] [address] [place] [address] Nov, Bronchitis J40 [place] [address] [address] 14 Oct, 2016 Generalized anxiety disorder F41.1 [place] [id number] [place] [address] 14 Sep, 2016 Bipolar disorder, current episode mixed, moderate F31.62 and Generalized anxiety disorder F41.1 [place] [id number] [place] [address] Sep, Bipolar disorder, current episode mixed, moderate F31.62 and Generalized anxiety disorder F41.1 [facility] [address] [place] [address] 08 Jul, 2016 Upper respiratory tract infection, unspecified type J06.9 [place] [id number] [place] [address] Jun, Bipolar disorder, current episode mixed, moderate F31.62 and Generalized anxiety disorder F41.1 [place] [id number] [place] [address] Apr, [place] [id number] [place] [address] Apr, Encounter for test, result positive Z32.01 [place] [id number] [place] [address] March, [place] [id number] [place] [address] March, Bipolar disorder, current episode mixed, moderate F31.62 and Generalized anxiety disorder F41.1 [place] [address] [address] March, Bipolar disorder, current episode mixed, moderate F31.62 and Generalized anxiety disorder F41.1 [facility] [address] [address] March, [facility] [id number] [place] [address] March, [facility] [id number] [place] [address] Feb, [facility] [id number] [place] [address] Feb, [facility] [id number] [place] [address] Feb, Bipolar disorder, current episode mixed, moderate F31.62 and Generalized anxiety disorder F41.1 [facility] [address] [place] [address] Jan, Abdominal pain R10.9 [facility] [address] [place] [address] Jan, [facility] [id number] [place] [address] Dec, Dental examination Z01.20 [facility] [address] [place] [address] Dec, Dental examination Z01.20 and Dental caries K02.9 [facility] [address] [address] 15 Dec, 2015 Bipolar disorder, current episode mixed, moderate F31.62 and Generalized anxiety disorder F41.1 [facility] [address] [address] Dec, [facility] [address] [place] [address] Nov, Bipolar disorder, current episode mixed, moderate F31.62 ; Generalized anxiety disorder F41.1 and Seizure-like activity R56.9 [facility] [id number] [place] [address] Oct, [facility] [id number] [place] [address] Oct, Bipolar disorder, current episode mixed, moderate F31.62 [facility] [id number] [place] [address] Oct, Well woman exam Z01.419 ; Encounter [...] Tobacco use Z72.0 and Hot flashes N95.1 [facility] [id number] [place] [address] 09 Oct, 2015 Seizure-like activity R56.9 and Irregular periods N92.6 [place] [id number] [place] [address] 07 Oct, 2015 Bipolar disorder, current episode mixed, moderate F31.62 ; Generalized anxiety disorder F41.1 and Underweight R63.6 [facility] [id number] [place] [address] Oct, [facility] [address] [address] Oct, Generalized anxiety disorder F41.1 and Unspecified mood [affective] disorder F39 [facility] [id number] [place] [address] Oct, Back pain M54.9 and Anxiety F41.9 [facility] [address] [place] [address] Oct, [facility] [id number] [place] [address] Sep, Arm pain, left M79.602 [facility] [id number] [place] [address] Sep, [facility] [id number] [place] [id number] Sep, Dental examination Z01.20 and Dental caries K02.9 [facility] [id number] [place] [address] Sep, Generalized anxiety disorder F41.1 and Unspecified episodic mood disorder F39 [facility] [id number] [place] [address] Sep, Bilateral low back pain without sciatica M54.5 and Seizure-like activity R56.9 [facility] [id number] [place] [address] Aug, [facility] [id number] [place] [address] Aug, [facility] [id number] [place] [address] Aug, [facility] [id number] [place] [address] Aug, Visual changes H53.9 and Bilateral low back pain without sciatica M54.5 [facility] [id number] [place] [address] Jul, [facility] [id number] [place] [address] Jun, Bipolar I disorder, most recent episode (or current) mixed, moderate 296.62 ; Generalized anxiety disorder 300.02 and High risk medication use V58.69 [facility] [address] [address] Jun, [facility] [id number] [place] [address] May, [facility] [id number] [place] [address] May, Bipolar I disorder, most recent episode (or current) mixed, moderate 296.62 and Generalized anxiety disorder 300.02 [facility] [id number] [place] [address] [id number] May, Dental examination V72.2 [facility] [id number] [place] [address] March, Bipolar I disorder, most recent episode (or current) mixed, moderate 296.62 and Generalized anxiety disorder 300.02 [facility] [id number] [place] [address] March, [facility] [id number] [place] [address] March, [facility] [id number] [place] [address] March, Underweight 783.22 ; Hand pain, right 729.5 and Reflux gastritis 535.40 [facility] [id number] [place] [address] Feb, [facility] [id number] [place] [address] Feb, [facility] [id number] [place] [address] Jan, [facility] [id number] [place] [address] Jan, [facility] [address] [place] [address] 16 Jan, 2015 [facility] [id number] [place] [address] 16 Jan, 2015 [facility] [place] [facility] [address] [id number] [place] [address] 13 Jan, 2015 [facility] [place] [facility] [address] [id number] [place] [address] 13 Jan, 2015 [facility] [place] [facility] [address] [facility] [id number] [place] [address] 05 Jan, 2015 [facility] [place] [facility] [address] [facility] [id number] [place] [address] 05 Jan, 2015 [facility] [place] [facility] [address] [id number] [place] [address] Jan, [facility] [place] [facility] [address] [facility] [id number] [place] [address] Jan, [facility] [place] [facility] [address] [facility] [id number] [place] [address] Jan, [facility] [place] [facility] [address] [facility] [id number] [place] [address] Jan, [facility] [place] [facility] [address] [facility] [id number] [place] [address] Dec, [facility] [place] [facility] [address] [facility] [id number] [place] [address] Dec, [facility] [place] [facility] [address] [facility] [id number] [address] Dec, 2014 [facility] [place] [facility] [address] [address] [facility] [id number] [address] Dec, 2014 [facility] [place] [facility] [address] [facility] [id number] [place] [address] 18 Dec, 2014 [facility] [place] [facility] [address] [facility] [id number] [place] [address] 17 Dec, 2014 [facility] [place] [facility] [address] [facility] [id number] [place] [address] Dec, 2014 [facility] [place] [facility] [address] [id number] [place] [address] Dec, 2014 [facility] [place] [facility] [address] [id number] [place] [address] Dec, 2014 [facility] [place] [facility] [address] [id number] [place] [address] Dec, 2014 [facility] [place] [facility] [address] [id number] [place] [address] Dec, 2014 [facility] [place] [facility] [address] [id number] [place] [address] Dec, 2014 [facility] [place] [facility] [address] [id number] [place] [address] Dec, 2014 [facility] [place] [facility] [address] [facility] [id number] [place] [address] Dec, 2014 [facility] [place] [facility] [address] [id number] [place] [address] Dec, 2014 [facility] [place] [facility] [address] [id number] [place] [address] Dec, 2014 [facility] [place] [facility] [address] [facility] [id number] [place] [address] Dec, 2014 [facility] [place] [facility] [address] [id number] [place] [address] Dec, 2014 [facility] [place] [facility] [address] [id number] [place] [address] Dec, 2014 [facility] [place] [facility] [address] [id number] [place] [address] Nov, [facility] [place] [facility] [address] [id number] [place] [address] Nov, [facility] [place] [facility] [address] [facility] [id number] [place] [address] Nov, [facility] [place] [facility] [address] [id number] [place] [address] Nov, [facility] [place] [facility] [address] [id number] [place] [address] Nov, [facility] [place] [facility] [address] [id number] [place] [address] Nov, [facility] [place] [facility] [address] [id number] [place] [id number] Nov, [facility] [place] [facility] [address] [id number] [place] [address] Nov, [facility] [place] [facility] [address] [id number] [place] [address] Nov, [facility] [place] [facility] [address] [id number] [place] [id number] Nov, [facility] [place] [facility] [address] [id number] [place] [address] Nov, [facility] [place] [facility] [address] [id number] [place] [address] Nov, [facility] [place] [facility] [address] [id number] [place] [address] Oct, [facility] [place] [facility] [address] [id number] [place] [address] Oct, [facility] [place] [facility] [address] [id number] [place] [address] Oct, [facility] [place] [facility] [address] [id number] [place] [address] Oct, [facility] [place] [facility] [address] [id number] [place] [address] Oct, [facility] [place] [facility] [address] [id number] [place] [address] Oct, [facility] [place] [facility] [address] [id number] [place] [address] Oct, [facility] [place] [facility] [address] [id number] [place] [address] Oct, [facility] [place] [facility] [address] [id number] [place] [address] Oct, [facility] [place] [facility] [address] [id number] [place] [address] Oct, [facility] [place] [facility] [address] [id number] [place] [address] Oct, [facility] [place] [facility] [address] [id number] [place] [address] Oct, [facility] [place] [facility] [address] [id number] [place] [address] Sep, [facility] [place] [facility] [address] [id number] [place] [address] Sep, [facility] [place] [facility] [address] [id number] [place] [address] Sep, [facility] [place] [facility] [address] [id number] [place] [address] Sep, [facility] [place] [facility] [address] [id number] [place] [address] Sep, [facility] [place] [facility] [address] [id number] [place] [address] Sep, [facility] [place] [facility] [address] [id number] [place] [address] Sep, [facility] [place] [facility] [address] [id number] [place] [address] Sep, [facility] [place] [facility] [address] [id number] [place] [address] Aug, [facility] [place] [facility] [address] [id number] [place] [address] Aug, [facility] [place] [facility] [address] [id number] [place] [address] Aug, [facility] [place] [facility] [address] [id number] [place] [address] Aug, [facility] [place] [facility] [address] [id number] [place] [address] Aug, [facility] [place] [facility] [address] [id number] [place] [address] Aug, [facility] [place] [facility] [address] [id number] [place] [address] Aug, [facility] [place] [facility] [address] [id number] [place] [address] Aug, [facility] [place] [facility] [address] [id number] [place] [address] Aug, [facility] [place] [facility] [address] [id number] [place] [address] Aug, [facility] [place] [facility] [address] [id number] [place] [address] Aug, [facility] [place] [facility] [address] [id number] [place] [address] Aug, [facility] [place] [facility] [address] [id number] [place] [address] Aug, [facility] [place] [facility] [address] [id number] [place] [address] Jul, [facility] [place] [facility] [address] [id number] [place] [address] Jul, [facility] [place] [facility] [address] [id number] [place] [address] Jul, [facility] [place] [facility] [address] [id number] [place] [address] Jul, [facility] [place] [facility] [address] [id number] [place] [address] Jun, [facility] [place] [facility] [address] [id number] [place] [address] Jun, [facility] [place] [facility] [address] [id number] [place] [address] Jun, [facility] [place] [facility] [address] [id number] [place] [address] Jun, [facility] [place] [facility] [address] [id number] [place] [address] Jun, [facility] [place] [facility] [address] [id number] [place] [address] Jun, [facility] [place] [facility] [address] [id number] [place] [address] May, [facility] [place] [facility] [address] [id number] [place] [address] May, [facility] [place] [facility] [address] [id number] [place] [address] May, [facility] [place] [facility] [address] [id number] [place] [address] May, [facility] [place] [facility] [address] [id number] [place] [address] Apr, [facility] [place] [facility] [address] [id number] [place] [address] Apr, [facility] [place] [facility] [address] [id number] [place] [address] March, [facility] [place] [facility] [address] [id number] [place] [address] March, [facility] [place] [facility] [address] [id number] [place] [address] March, [facility] [place] [facility] [address] [id number] [place] [address] March, [facility] [place] [facility] [address] [id number] [place] [address] March, [facility] [place] [facility] [address] [id number] [place] [address] March, [facility] [place] [facility] [address] [id number] [place] [address] Feb, [facility] [place] [facility] [address] [id number] [place] [address] Feb, [facility] [place] [facility] [address] [id number] [place] [address] Dec, [facility] [place] [facility] [address] [id number] [place] [address] Dec, [facility] [place] [facility] [address] [id number] [place] [address] Nov, [facility] [place] [facility] [address] [id number] [place] [address] Nov, [facility] [place] [facility] [address] [id number] [place] [address] Sep, [facility] [place] [facility] [address] [id number] [place] [address] Sep, [facility] [place] [facility] [address] [id number] [place] [address] Sep, [facility] [place] [facility] [address] [id number] [place] [address] Sep, [facility] [place] [facility] [address] [id number] [place] [address] Sep, [facility] [place] [facility] [address] [id number] [place] [address] Sep, [facility] [place] [facility] [address] [id number] [place] [address] Sep, [facility] [place] [facility] [address] [id number] [place] [address] Aug, [facility] [place] [facility] [address] [id number] [place] [address] Aug, [facility] [place] [facility] [address] [id number] [place] [address] Aug, [facility] [place] [facility] [address] [id number] [place] [address] Aug, [facility] [place] [facility] [address] [id number] [place] [address] Aug, [facility] [place] [facility] [address] [id number] [place] [address] Aug, [facility] [place] [facility] [address] [id number] [place] [address] Jul, [facility] [place] [facility] [address] [id number] [place] [address] Jul, [facility] [place] [facility] [address] [id number] [place] [address] 16 Jul, 2013 [facility] [place] [facility] [address] [id number] [place] [address] Jul, [facility] [place] [facility] [address] [id number] [place] [address] Jun, [facility] [place] [facility] [address] [id number] [place] [address] Jun, [facility] [place] [facility] [address] [id number] [place] [address] Jun, [facility] [place] [facility] [address] [id number] [place] [address] Jun, [facility] [place] [facility] [address] [id number] [place] [address] Jun, [facility] [place] [facility] [address] [id number] [place] [address] Jun, [facility] [place] [facility] [address] [id number] [place] [address] Jun, [facility] [place] [facility] [address] [id number] [place] [address] 23 May, 2012 [facility] [place] [facility] [address] [id number] [place] [address] 23 May, 2012 [facility] [place] [facility] [address] [id number] [place] [address] 16 May, 2012 [facility] [place] [facility] [address] [id number] [place] [address] 15 May, 2012 [facility] [place] [facility] [address] [id number] [place] [address] 13 May, 2013 [facility] [place] [facility] [address] [id number] [place] [address] 05 May, 2013 [facility] [place] [facility] [address] [id number] [place] [address] 03 May, 2013 [facility] [place] [facility] [address] [id number] [place] [address] 28 Apr, 2013 [facility] [place] [facility] [address] [id number] [place] [address] 27 Apr, 2013 [facility] [place] [facility] [address] [id number] [place] [address] 27 Apr, 2013 [facility] [place] [facility] [address] [id number] [place] [address] 26 Apr, 2013 [facility] [place] [facility] [address] [id number] [place] [address] 20 Apr, 2013 [facility] [place] [facility] [address] [id number] [place] [address] 18 Apr, 2013 [facility] [place] [facility] [address] [id number] [place] [address] 18 Apr, 2013 [facility] [place] [facility] [address] [id number] [place] [address] 18 Apr, 2013 [facility] [place] [facility] [address] [id number] [place] [address] 17 Apr, 2013 [facility] [place] [facility] [address] [id number] [place] [address] 14 Apr, 2013 [facility] [place] [facility] [address] [id number] [place] [address] 14 Apr, 2013 [facility] [place] [facility] [address] [id number] [place] [address] 11 Apr, 2013 [facility] [place] [facility] [address] [id number] [place] [address] 10 Apr, 2013 [facility] [place] [facility] [address] [id number] [place] [address] 09 Apr, 2013 [facility] [place] [facility] [address] [id number] [place] [address] 07 Apr, 2013 [facility] [place] [facility] [address] [id number] [place] [address] 06 Apr, 2013 [facility] [place] [facility] [address] [id number] [place] [address] 06 Apr, 2013 [facility] [place] [facility] [address] [id number] [place] [address] 05 Apr, 2013 [facility] [place] [facility] [address] [id number] [place] [address] Apr, [facility] [place] [facility] [address] [id number] [place] [address] March, [facility] [place] [facility] [address] [id number] [place] [address] March, [facility] [place] [facility] [address] [id number] [place] [address] March, [facility] [place] [facility] [address] [id number] [place] [address] March, [facility] [place] [facility] [address] [id number] [place] [address] March, [facility] [place] [facility] [address] [id number] [place] [address] 11 Mar, 2013 [facility] [address] [id number] [place] [address] March, [facility] [address] [id number] [place] [address] Feb, [facility] [address] [id number] [place] [address] Feb, [facility] [address] [id number] [place] [address] 27 Jan, 2013 [facility] [address] [id number] [place] [address] 18 Jan, 2013 [facility] [address] [id number] [place] [address] 15 Jan, [address] [facility] [address] [id number] [place] [address] 14 Jan, 2013 [facility] [address] [id number] [place] [address] 13 Jan, 2013 [facility] [address] [id number] [place] [address] 12 Jan, 2013 [facility] [address] [id number] [place] [address] 11 Jan, [address] [facility] [address] [id number] [place] [address] 09 Jan, 2013 [facility] [address] [id number] [place] [address] 08 Jan, 2013 [facility] [address] [id number] [place] [address] 07 Jan, 2013 [facility] [place] [facility] [address] [id number] [place] [address] 06 Jan, 2013 [facility] [address] [id number] [place] [address] 17 Nov, 2012 [facility] [place] [facility] [address] [id number] [place] [address] Oct, [facility] [place] [facility] [address] [id number] [place] [address] Oct, [facility] [place] [facility] [address] [id number] [place] [address] Oct, [facility] [place] [facility] [address] [id number] [place] [address] Oct, [facility] [place] [facility] [address] [id number] [place] [address] Sep, [facility] [place] [facility] [address] [id number] [place] [address] Sep, [facility] [place] [facility] [address] [id number] [place] [address] Sep, [facility] [place] [facility] [address] [id number] [place] [address] Sep, [facility] [place] [facility] [address] [id number] [place] [address] Sep, [facility] [place] [facility] [address] [id number] [place] [address] Sep, [facility] [place] [facility] [address] [id number] [place] [address] Sep, [facility] [place] [facility] [address] [id number] [place] [address] Sep, [facility] [place] [facility] [address] [id number] [place] [address] Sep, [facility] [place] [facility] [address] [id number] [place] [address] Sep, [facility] [place] [facility] [address] [id number] [place] [address] Sep, [facility] [place] [facility] [address] [id number] [place] [address] Aug, [facility] [place] [facility] [address] [id number] [place] [address] Aug, [facility] [place] [facility] [address] [id number] [place] [address] Aug, [facility] [place] [facility] [address] [id number] [place] [address] 28 Jul, 2012 [facility] [place] [facility] [address] [id number] [place] [address] 25 Jul, 2012 [facility] [place] [facility] [address] [id number] [place] [address] 19 Jul, 2012 [facility] [place] [facility] [address] [id number] [place] [address] 17 Jul, 2012 [facility] [place] [facility] [address] [id number] [place] [address] 20 Jun, 2012 [facility] [place] [facility] [address] [id number] [place] [address] 16 Jun, 2012 [facility] [place] [facility] [address] [id number] [place] [address] 15 Jun, 2012 [facility] [place] [facility] [address] [id number] [place] [address] Jun, [facility] [place] [facility] [address] [id number] [place] [address] Jun, [facility] [place] [facility] [address] [id number] [place] [address] March, [facility] [place] [facility] [address] [id number] [place] [address] Feb, [facility] [place] [facility] [address] [id number] [place] [address] Jan, [facility] [place] [facility] [address] [id number] [place] [address] Jan, [facility] [place] [facility] [address] [id number] [place] [address] 22 Jan, 2012 [facility] [place] [facility] [address] [id number] [place] [address] 14 Jan, 2012 [facility] [place] [facility] [address] [id number] [place] [address] 14 Jan, 2012 [facility] [place] [facility] [address] [id number] [place] [address] 14 Jan, 2012 [facility] [place] [facility] [address] [id number] [place] [address] 28 Dec, 2011 [facility] [place] [facility] [address] [id number] [place] [address] 27 Dec, 2011 [facility] [place] [facility] [address] [id number] [place] [address] 23 Dec, 2011 [facility] [place] [facility] [address] [id number] [place] [address] 21 Dec, 2011 [facility] [place] [facility] [address] [id number] [place] [address] 20 Dec, 2011 [facility] [place] [facility] [address] [id number] [place] [address] 19 Dec, 2011 [facility] [place] [facility] [address] [id number] [place] [address] 17 Dec, 2011 [facility] [place] [facility] [address] [id number] [place] [address] 16 Dec, 2011 [facility] [place] [facility] [address] [id number] [place] [address] 31 Nov, 2011 [facility] [place] [facility] [address] [id number] [place] [address] 13 Oct, 2011 [facility] [place] [facility] [address] [id number] [place] [address] 18 Sep, 2011 [facility] [place] [facility] [address] [id number] [place] [address] 18 Sep, 2011 [facility] [address] [facility] [id number] [place] [address] Sep, [facility] [address] [facility] [id number] [place] [address] Sep, [facility] [address] [facility] [id number] [place] [address] Sep, [facility] [address] [facility] [id number] [place] [address] Sep, [facility] [address] [facility] [id number] [place] [address] Jan, [facility] [address] [facility] [id number] [place] [address] Apr, IMMUNIZATIONS No Known Immunizations SOCIAL HISTORY Never Assessed REASON FOR VISIT PLAN OF CARE VITAL SIGNS Height 66 in 2015-01-23 Weight 115.12 lbs 2015-01-23 Temperature 97.9 degrees Fahrenheit 2015-01-23 Heart Rate 89 bpm 2015-01-23 Respiratory Rate 24 2015-01-23 Blood pressure systolic 104 mmHg 2015-01-23 Blood pressure diastolic 76 mmHg 2015-01-23 MEDICATIONS Unknown Medications RESULTS No Results PROCEDURES [...]
--- OUTSIDE RECORDS SUMMARY | 2019-05-27 20:42 | XMS REPORT ---
Author Author FLO GONZALEZ Organization [facility] Address [address] [place] [address] Care Team Providers Care Java Developer Name Role Phone LISA FLO Unavailable PROBLEMS Type Condition ICD9-CM Code [id number] Code Onset Dates Condition Status SNOMED Code Problem Generalized anxiety disorder F41.1 Active 54385800 Problem Bipolar disorder, current episode mixed, moderate F31.62 Active 841479979 Problem Acute non intractable tension-type headache G44.209 Active 367843957 Problem Constipation K59.00 Active 70005708 Problem Post traumatic stress disorder F43.10 Active 00437293 Problem Borderline personality disorder F60.3 Active 10913754 Problem Endometriosis N80.9 Active 424235716 Problem Acute right-sided low back pain with right-sided sciatica M54.41 Active 184376903 ALLERGIES No Information ENCOUNTERS Encounter Location Date Diagnosis [facility] [id number] [place] [address] Jun, [facility] [id number] [place] [address] Apr, Bipolar disorder, current episode mixed, moderate F31.62 [facility] [id number] [place] [address] Apr, Bipolar disorder, current episode mixed, moderate F31.62 ; Post traumatic stress disorder F43.10 and Borderline personality disorder F60.3 [facility] [id number] [place] [address] March, Bipolar disorder, current episode mixed, moderate F31.62 [facility] [id number] [place] [address] March, Bipolar disorder, current episode mixed, moderate F31.62 [facility] [id number] [place] [address] March, Bronchitis J40 [facility] [address] [address] Feb, Bipolar disorder, current episode mixed, moderate F31.62 ; Post traumatic stress disorder F43.10 ; Borderline personality disorder F60.3 and Other emt intermediate (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 Z79.8[address] [place] [id number] [place] [address] Feb, Pelvic floor dysfunction M62.89 [place] [id number] [place] [address] Feb, Bipolar disorder, current episode mixed, moderate F31.62 [facility] [id number] [place] [address] Jan, Dehydration E86.0 and Back muscle spasm M62.830 [facility] [id number] [place] [address] Jan, Bipolar disorder, current episode mixed, moderate F31.62 ; Post traumatic stress disorder F43.10 ; Borderline personality disorder F60.3 and Other residential (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 Z79.899 [facility] [id number] [place] [address] Jan, Cough R05 and Viral upper respiratory tract infection J06.9 [facility] [id number] [place] [address] Jan, Bipolar disorder, current episode mixed, moderate F31.62 [facility] [id number] [place] [address] Dec, Bipolar disorder, current episode mixed, moderate F31.62 [facility] [id number] [place] [address] Nov, Bipolar disorder, current episode mixed, moderate F31.62 [facility] [id number] [place] [address] Oct, Sore throat J02.9 [facility] [id number] [place] [address] Oct, Abdominal pain R10.9 ; Low back pain M54.5 ; Left shoulder pain M25.[address] [facility] [id number] [place] [address] Oct, Bipolar disorder, current episode mixed, moderate F31.62 ; Post traumatic stress disorder F43.10 and Borderline personality disorder F60.3 [facility] [address] [address] Sep, Bipolar disorder, current episode mixed, moderate F31.62 [facility] [id number] [place] [address] Aug, Bipolar disorder, current episode mixed, moderate F31.62 [facility] [id number] [place] [address] Jul, Thrombophlebitis I80.9 and Pelvic pain R10.2 [facility] [id number] [place] [address] 05 Jul, 2018 Bipolar disorder, current episode mixed, moderate F31.62 ; Post traumatic stress disorder F43.10 and Borderline personality disorder F60.3 [facility] [id number] [place] [address] Jun, Bipolar disorder, current episode mixed, moderate F31.62 [facility] [id number] [place] [address] May, Palpitations R00.2 [facility] [id number] [place] [address] May, Palpitations R00.2 [facility] [facility] [id number] [place] [address] May, Palpitations R00.2 and Frequent bowel movements R19.4 [facility] [address] [place] [address] 05 May, 2018 Bipolar disorder, current episode mixed, moderate F31.62 ; Post traumatic stress disorder F43.10 and Borderline personality disorder F60.3 [facility] [id number] [place] [phone] 15 Apr, 2018 Dental examination Z01.20 [facility] [id number] [place] [address] 15 Apr, 2018 [facility] [id number] [place] [address] 15 Apr, 2018 Tooth pain K08.89 [place] [id number] [place] [address] 15 Apr, [address] [facility] [id number] [place] [address] 06 Apr, 2018 Bipolar disorder, current episode mixed, moderate F31.62 ; Post traumatic stress disorder F43.10 and Borderline personality disorder F60.3 [facility] [id number] [place] [address] March, Abdominal pain R10.9 ; UTI symptoms R39.9 and Other microscopic hematuria R31.29 [facility] [id number] [place] [address] March, [facility] [id number] [place] [address] March, Bipolar disorder, current episode mixed, moderate F31.62 ; Post traumatic stress disorder F43.10 and Borderline personality disorder F60.3 [facility] [id number] [place] [address] Feb, Encounter for immunization Z23 [facility] [id number] [place] [address] Feb, Bipolar disorder, current episode mixed, moderate F31.62 ; Post traumatic stress disorder F43.10 and Borderline personality disorder F60.3 [facility] [address] [address] Feb, Bipolar disorder, current episode mixed, moderate F31.62 ; Post traumatic stress disorder F43.10 ; Borderline personality disorder F60.3 and Other residential (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 Z79.899 [facility] [address] [address] Jan, Encounter for immunization Z23 [facility] [address] [address] Jan, [facility] [place] [address] [address] Jan, Bipolar disorder, current episode mixed, moderate F31.62 [facility] [address] [address] Jan, Lumbar back pain M54.5 [facility] [address] [address] Dec, Low back pain M54.5 [facility] [address] [address] 13 Dec, 2017 Bipolar disorder, current episode mixed, moderate F31.62 [facility] [id number] [place] [address] Dec, Generalized anxiety disorder F41.1 and Bipolar disorder, current episode mixed, moderate F31.62 [facility] [id number] [place] [address] Nov, Acute non intractable tension-type headache G44.209 [facility] [address] [id number] Nov, Bipolar disorder, current episode mixed, moderate F31.62 ; Post traumatic stress disorder F43.10 and Borderline personality disorder F60.3 [place] [address] [place] [address] Nov, Bipolar disorder, current episode mixed, moderate F31.62 [facility] [place] [address] [address] Nov, Abdominal pain R10.9 ; History of PCOS Z87.42 ; History of endometriosis Z87.42 and Pelvic pain R10.2 [place] [address] [address] Nov, [facility] [address] [address] Oct, History of PCOS Z87.42 ; History of endometriosis Z87.42 and Pain R52 [place] [address] [address] Oct, Bipolar disorder, current episode mixed, moderate F31.62 ; Post traumatic stress disorder F43.10 and Borderline personality disorder F60.3 [facility] [id number] [place] [address] Oct, Bipolar disorder, current episode mixed, moderate F31.62 [facility] [facility] [id number] [place] [address] Sep, Bipolar disorder, current episode mixed, moderate F31.62 ; Post traumatic stress disorder F43.10 ; Borderline personality disorder F60.3 and Other emt intermediate (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 Z79.899 [place] [id number] [place] [address] Sep, Bipolar disorder, current episode mixed, moderate F31.62 [facility] [place] [address] [address] Sep, Endometriosis N80.9 and Acute right-sided low back pain with right- sided sciatica M54.41 [place] [address] [address] Aug, [facility] [address] [address] Aug, Bipolar disorder, current episode mixed, moderate F31.62 ; Post traumatic stress disorder F43.10 and Borderline personality disorder F60.3 [facility] [address] [address] 11 Aug, 2017 Bipolar disorder, current episode mixed, moderate F31.62 ; Post traumatic stress disorder F43.10 and Borderline personality disorder F60.3 [facility] [address] [address] 13 Jul, 2017 Bipolar disorder, current episode mixed, moderate F31.62 ; Post traumatic stress disorder F43.10 and Borderline personality disorder F60.3 [facility] [address] [address] 11 Jul, 2017 Pharyngitis, unspecified etiology J02.9 and Streptococcal pharyngitis J02.0 [facility] [address] [place] [address] Jun, Bipolar disorder, current episode mixed, moderate F31.62 ; Post traumatic stress disorder F43.10 and Borderline personality disorder F60.3 [facility] [address] [address] May, [place] [address] [place] [address] May, [facility] [id number] [place] [address] May, Bipolar disorder, current episode mixed, moderate F31.62 and Generalized anxiety disorder F41.1 [facility] [id number] [place] [address] March, Bipolar disorder, current episode mixed, moderate F31.62 and Generalized anxiety disorder F41.1 [facility] [address] [place] [address] March, Pelvic pain R10.2 [facility] [address] [place] [address] March, [facility] [id number] [place], [place] [address] Feb, Bipolar disorder, current episode mixed, moderate F31.62 and Generalized anxiety disorder F41.1 [facility] [id number] [place] [address] Jan, [facility] [id number] [place] [address] Jan, Bipolar disorder, current episode mixed, moderate F31.62 [facility] [id number] [place] [address] Jan, Bipolar disorder, current episode mixed, moderate F31.62 [facility] [id number] [place] [address] Jan, Bilateral low back pain without sciatica M54.5 [facility] [id number] [place] [address] [id number] Jan, Dental caries K02.9 and Dental examination Z01.20 [facility] [id number] [place] [phone] Jan, Encounter for dental examination and cleaning without abnormal findings Z01.20 [facility] [address] [place] [address] Jan, Bipolar disorder, current episode mixed, moderate F31.62 and Generalized anxiety disorder F41.1 [facility] [address] [place] [address] Dec, [facility] [id number] [place] [address] Dec, Bipolar disorder, current episode mixed, moderate F31.62 and Generalized anxiety disorder F41.1 [facility] [id number] [place] [address] 03 Dec, 2016 Other fatigue R53.83 and Orthostatic hypotension I95.1 [facility] [address] [place] [address] [phone] Nov, Dental examination Z01.20 [facility] [address] [place] [address] Nov, Bronchitis J40 [place] [address] [address] 14 Oct, 2016 Generalized anxiety disorder F41.1 [facility] [id number] [place] [address] 14 Sep, 2016 Bipolar disorder, current episode mixed, moderate F31.62 and Generalized anxiety disorder F41.1 [facility] [id number] [place] [address] Sep, Bipolar disorder, current episode mixed, moderate F31.62 and Generalized anxiety disorder F41.1 [facility] [address] [place] [address] 08 Jul, 2016 Upper respiratory tract infection, unspecified type J06.9 [facility] [id number] [place] [address] Jun, Bipolar disorder, current episode mixed, moderate F31.62 and Generalized anxiety disorder F41.1 [facility] [id number] [place] [address] Apr, [facility] [id number] [place] [address] Apr, Encounter for test, result positive Z32.01 [facility] [id number] [place] [address] March, [facility] [id number] [place] [address] March, Bipolar disorder, current episode mixed, moderate F31.62 and Generalized anxiety disorder F41.1 [place] [address], [place] [address] March, Bipolar disorder, current episode mixed, moderate F31.62 and Generalized anxiety disorder F41.1 [facility] [address], [place] [address] March, [facility] [id number] [place] [address] March, [facility] [id number] [place] [address] Feb, [facility] [id number] [place] [address] Feb, [facility] [id number] [place] [address] Feb, Bipolar disorder, current episode mixed, moderate F31.62 and Generalized anxiety disorder F41.1 [facility] [address] [place] [address] Jan, Abdominal pain R10.9 [facility] [address] [place] [address] Jan, [facility] [id number] [place] [address] Dec, Dental examination Z01.20 [facility] [address] [place] [address] Dec, Dental examination Z01.20 and Dental caries K02.9 [facility] [address], [place] [address] 15 Dec, 2015 Bipolar disorder, current episode mixed, moderate F31.62 and Generalized anxiety disorder F41.1 [facility] [address], [place] [address] Dec, [facility] [address] [place] [address] Nov, Bipolar disorder, current episode mixed, moderate F31.62 ; Generalized anxiety disorder F41.1 and Seizure-like activity R56.9 [facility] [address] [place] [address] Oct, [facility] [address] [place] [address] Oct, Bipolar disorder, current episode mixed, moderate F31.62 [facility] [address] [place] [address] Oct, Well woman exam Z01.419 ; Encounter [...] Tobacco use Z72.[address] [facility] [address] [place] [address] 09 Oct, 2015 Seizure-like activity R56.9 and Irregular periods N92.6 [facility] [address] [place] [address] 07 Oct, 2015 Bipolar disorder, current episode mixed, moderate F31.62 ; Generalized anxiety disorder F41.[address] [facility] [id number] [place] [address] Oct, [facility] [address] [address] Oct, Generalized anxiety disorder F41.1 and Unspecified mood [affective] disorder F39 [facility] [id number] [place] [address] Oct, Back pain M54.[address] [facility] [address] [place] [address] Oct, [facility] [id number] [place] [address] Sep, Arm pain, left M79.602 [facility] [id number] [place] [address] Sep, [facility] [id number] [place] [phone] Sep, Dental examination Z01.20 and Dental caries K02.9 [facility] [id number] [place] [address] Sep, Generalized anxiety disorder F41.1 and Unspecified episodic mood disorder F39 [facility] [id number] [place] [address] Sep, Bilateral low back pain without sciatica M54.5 and Seizure-like activity R56.9 [facility] [id number] [place] [address] Aug, [facility] [id number] [place] [address] Aug, [facility] [id number] [place] [address] Aug, [facility] [address] [place] [address] Aug, Visual changes H53.9 and Bilateral low back pain without sciatica M54.5 [facility] [id number] [place] [address] Jul, [facility] [address] [place] [address] Jun, Bipolar I disorder, most recent episode (or current) mixed, moderate 296.62 ; Generalized anxiety disorder 300.02 and High risk medication use V58.69 [facility] [address] [address] Jun, [facility] [id number] [place] [address] May, [facility] [id number] [place] [address] May, Bipolar I disorder, most recent episode (or current) mixed, moderate 296.62 and Generalized anxiety disorder 300.02 [facility] [id number] [place] [id number] May, Dental examination V72.2 [facility] [id number] [place] [address] March, Bipolar I disorder, most recent episode (or current) mixed, moderate 296.62 and Generalized anxiety disorder 300.02 [facility] [id number] [place] [address] March, [facility] [id number] [place] [address] March, [facility] [id number] [place] [address] March, Underweight 783.22 ; Hand pain, right 729.5 [address]ritis 535.40 [facility] [address] [place] [address] Feb, [facility] [id number] [place] [address] Feb, [facility] [id number] [place] [address] Jan, [facility] [id number] [place] [address] Jan, [facility] [address] [place] [address] 16 Jan, 2015 [facility] [id number] [place] [address] 16 Jan, 2015 [facility] [place] [facility] [address] [id number] [place] [address] 13 Jan, 2015 [facility] [place] [facility] [address] [id number] [place] [address] 13 Jan, 2015 [facility] [place] [facility] [address] [facility] [id number] [place] [address] 05 Jan, 2015 [facility] [place] [facility] [address] [facility] [id number] [place] [address] 05 Jan, 2015 [facility] [place] [facility] [address] [id number] [place] [address] Jan, [facility] [place] [facility] [address] [facility] [id number] [place] [address] Jan, [facility] [place] [facility] [address] [facility] [id number] [place] [address] Jan, [facility] [place] [facility] [address] [facility] [id number] [place] [address] Jan, [facility] [place] [facility] [address] [facility] [id number] [place] [address] Dec, [facility] [place] [facility] [address] [facility] [id number] [place] [address] Dec, [facility] [place] [facility] [address] [facility] [id number][place] [address] Dec, 2014 [facility] [place] [facility] [address] [facility] [id number], [place] [address] Dec, 2014 [facility] [place] [facility] [address] [facility] [id number] [place] [address] 18 Dec, 2014 [facility] [place] [facility] [address] [facility] [id number], [place] [address] 17 Dec, 2014 [facility] [place] [facility] [address] [facility] [id number], [place] [address] Dec, 2014 [facility] [place] [facility] [address] [id number] [place] [address] Dec, 2014 [facility] [place] [facility] [address] [id number] [place] [address] Dec, 2014 [facility] [place] [facility] [address] [id number] [place] [address] Dec, 2014 [facility] [place] [facility] [address] [id number] [place] [address] Dec, 2014 [facility] [place] [facility] [address] [id number] [place] [address] Dec, 2014 [facility] [place] [facility] [address] [id number] [place] [address] Dec, 2014 [facility] [place] [facility] [address] [facility] [id number] [place] [address] Dec, 2014 [facility] [place] [facility] [address] [id number] [place] [address] Dec, 2014 [facility] [place] [facility] [address] [id number] [place] [address] Dec, 2014 [facility] [place] [facility] [address] [facility] [id number] [place] [address] Dec, 2014 [facility] [place] [facility] [address] [id number], [place] [address] Dec, 2014 [facility] [place] [facility] [address] [id number], [place] [address] Dec, 2014 [facility] [place] [facility] [address] [id number] [place] [address] Nov, [facility] [place] [facility] [address] [id number] [place] [address] Nov, [facility] [place] [facility] [address] [facility] [id number] [place] [address] Nov, [facility] [place] [facility] [address] [id number] [place] [address] Nov, [facility] [place] [facility] [address] [id number] [place] [address] Nov, [facility] [place] [facility] [address] [id number] [place] [address] Nov, [facility] [place] [facility] [address] [id number] [place] [id number] Nov, [facility] [place] [facility] [address] [id number] [place] [address] Nov, [facility] [place] [facility] [address] [id number] [place] [address] Nov, [facility] [place] [facility] [address] [id number] [place] [id number] Nov, [facility] [place] [facility] [address] [id number] [place] [address] Nov, [facility] [place] [facility] [address] [id number] [place] [address] Nov, [facility] [place] [facility] [address] [id number] [place] [address] Oct, [facility] [place] [facility] [address] [id number] [place] [address] Oct, [facility] [place] [facility] [address] [id number] [place] [address] Oct, [facility] [place] [facility] [address] [id number] [place] [address] Oct, [facility] [place] [facility] [address] [id number] [place] [address] Oct, [facility] [place] [facility] [address] [id number] [place] [address] Oct, [facility] [place] [facility] [address] [id number] [place] [address] Oct, [facility] [place] [facility] [address] [id number] [place] [address] Oct, [facility] [place] [facility] [address] [id number] [place] [address] Oct, [facility] [place] [facility] [address] [id number] [place] [address] Oct, [facility] [place] [facility] [address] [id number] [place] [address] Oct, [facility] [place] [facility] [address] [id number] [place] [address] Oct, [facility] [place] [facility] [address] [id number] [place] [address] Sep, [facility] [place] [facility] [address] [id number] [place] [address] Sep, [facility] [place] [facility] [address] [id number] [place] [address] Sep, [facility] [place] [facility] [address] [id number] [place] [address] Sep, [facility] [place] [facility] [address] [id number] [place] [address] Sep, [facility] [place] [facility] [address] [id number] [place] [address] Sep, [facility] [place] [facility] [address] [id number] [place] [address] Sep, [facility] [place] [facility] [address] [id number] [place] [address] Sep, [facility] [place] [facility] [address] [id number] [place] [address] Aug, [facility] [place] [facility] [address] [id number] [place] [address] Aug, [facility] [place] [facility] [address] [id number] [place] [address] Aug, [facility] [place] [facility] [address] [id number] [place] [address] Aug, [facility] [place] [facility] [address] [id number] [place] [address] Aug, [facility] [place] [facility] [address] [id number] [place] [address] Aug, [facility] [place] [facility] [address] [id number] [place] [address] Aug, [facility] [place] [facility] [address] [id number] [place] [address] Aug, [facility] [place] [facility] [address] [id number] [place] [address] Aug, [facility] [place] [facility] [address] [id number] [place] [address] Aug, [facility] [place] [facility] [address] [id number], [place] [address] Aug, [facility] [place] [facility] [address] [id number] [place] [address] Aug, [facility] [place] [facility] [address] [id number], [place] [address] Aug, [facility] [place] [facility] [address] [id number], [place] [address] Jul, [facility] [place] [facility] [address] [id number], [place] [address] Jul, [facility] [place] [facility] [address] [id number] [place] [address] Jul, [facility] [place] [facility] [address] [id number], [place] [address] Jul, [facility] [place] [facility] [address] [id number], [place] [address] Jun, [facility] [place] [facility] [address] [id number] [place] [address] Jun, [facility] [place] [facility] [address] [id number] [place] [address] Jun, [facility] [place] [facility] [address] [id number] [place] [address] Jun, [facility] [place] [facility] [address] [id number] [place] [address] Jun, [facility] [place] [facility] [address] [id number] [place] [address] Jun, [facility] [place] [facility] [address] [id number] [place] [address] May, [facility] [place] [facility] [address] [id number] [place] [address] May, [facility] [place] [facility] [address] [id number] [place] [address] May, [facility] [place] [facility] [address] [id number] [place] [address] May, [facility] [place] [facility] [address] [id number] [place] [address] Apr, [facility] [place] [facility] [address] [id number] [place] [address] Apr, [facility] [place] [facility] [address] [id number] [place] [address] March, [facility] [place] [facility] [address] [id number] [place] [address] March, [facility] [place] [facility] [address] [id number] [place] [address] March, [facility] [place] [facility] [address] [id number] [place] [address] March, [facility] [place] [facility] [address] [id number] [place] [address] March, [facility] [place] [facility] [address] [id number] [place] [address] March, [facility] [place] [facility] [address] [id number] [place] [address] Feb, [facility] [place] [facility] [address] [id number] [place] [address] Feb, [facility] [place] [facility] [address] [id number] [place] [address] Dec, [facility] [place] [facility] [address] [id number] [place] [address] Dec, [facility] [place] [facility] [address] [id number] [place] [address] Nov, [facility] [place] [facility] [address] [id number] [place] [address] Nov, [facility] [place] [facility] [address] [id number] [place] [address] Sep, [facility] [place] [facility] [address] [id number] [place] [address] Sep, [facility] [place] [facility] [address] [id number], [place] [address] Sep, [facility] [place] [facility] [address] [id number], [place] [address] Sep, [facility] [place] [facility] [address] [id number], [place] [address] Sep, [facility] [place] [facility] [address] [id number] [place] [address] Sep, [facility] [place] [facility] [address] [id number] [place] [address] Sep, [facility] [place] [facility] [address] [id number], [place] [address] Aug, [facility] [place] [facility] [address] [id number], [place] [address] Aug, [facility] [place] [facility] [address] [id number] [place] [address] Aug, [facility] [place] [facility] [address] [id number] [place] [address] Aug, [facility] [place] [facility] [address] [id number] [place] [address] Aug, [facility] [place] [facility] [address] [id number] [place] [address] Aug, [facility] [place] [facility] [address] [id number] [place] [address] Jul, [facility] [place] [facility] [address] [id number] [place] [address] Jul, [facility] [place] [facility] [address] [id number] [place] [address] 16 Jul, 2013 [facility] [place] [facility] [address] [id number] [place] [address] Jul, [facility] [place] [facility] [address] [id number] [place] [address] Jun, [facility] [place] [facility] [address] [id number] [place] [address] Jun, [facility] [place] [facility] [address] [id number] [place] [address] Jun, [facility] [place] [facility] [address] [id number] [place] [address] Jun, [facility] [place] [facility] [address] [id number] [place] [address] Jun, [facility] [place] [facility] [address] [id number] [place] [address] Jun, [facility] [place] [facility] [address] [id number] [place] [address] Jun, [facility] [place] [facility] [address] [id number] [place] [address] 23 May, 2012 [facility] [place] [facility] [address] [id number] [place] [address] 23 May, 2012 [facility] [place] [facility] [address] [id number] [place] [address] 16 May, 2012 [facility] [place] [facility] [address] [id number] [place] [address] 15 May, 2012 [facility] [place] [facility] [address] [id number] [place] [address] 13 May, 2013 [facility] [place] [facility] [address] [id number] [place] [address] 05 May, 2013 [facility] [place] [facility] [address] [id number] [place] [address] 03 May, 2013 [facility] [place] [facility] [address] [id number] [place] [address] 28 Apr, 2013 [facility] [place] [facility] [address] [id number] [place] [address] 27 Apr, 2013 [facility] [place] [facility] [address] [id number] [place] [address] 27 Apr, 2013 [facility] [place] [facility] [address] [id number] [place] [address] 26 Apr, 2013 [facility] [place] [facility] [address] [id number] [place] [address] 20 Apr, 2013 [facility] [place] [facility] [address] [id number] [place] [address] 18 Apr, 2013 [facility] [place] [facility] [address] [id number] [place] [address] 18 Apr, 2013 [facility] [place] [facility] [address] [id number] [place] [address] 18 Apr, 2013 [facility] [place] [facility] [address] [id number] [place] [address] 17 Apr, 2013 [facility] [place] [facility] [address] [id number] [place] [address] 14 Apr, 2013 [facility] [place] [facility] [address] [id number] [place] [address] 14 Apr, 2013 [facility] [place] [facility] [address] [id number] [place] [address] 11 Apr, 2013 [facility] [place] [facility] [address] [id number] [place] [address] 10 Apr, 2013 [facility] [place] [facility] [address] [id number] [place] [address] 09 Apr, 2013 [facility] [place] [facility] [address] [id number] [place] [address] 07 Apr, 2013 [facility] [place] [facility] [address] [id number] [place] [address] 06 Apr, 2013 [facility] [place] [facility] [address] [id number] [place] [address] 06 Apr, 2013 [facility] [place] [facility] [address] [id number] [place] [address] 05 Apr, 2013 [facility] [place] [facility] [address] [id number] [place] [address] Apr, [facility] [place] [facility] [address] [id number] [place] [address] March, [facility] [place] [facility] [address] [id number], [place] [address] March, [facility] [place] [facility] [address] [id number] [place] [address] March, [facility] [place] [facility] [address] [id number] [place] [address] March, [facility] [place] [facility] [address] [id number] [place] [address] March, [facility] [place] [facility] [address] [id number] [place] [address] 11 Mar, 2013 [facility] [address] [id number] [place] [address] March, [facility] [address] [id number] [place] [address] Feb, [facility] [address] [id number] [place] [address] Feb, [facility] [address] [id number] [place] [address] 27 Jan, 2013 [facility] [address] [id number] [place] [address] 18 Jan, 2013 [facility] [address] [id number] [place] [address] 15 Jan, 2013 [facility] [address] [id number] [place] [address] 14 Jan, 2013 [facility] [address] [id number] [place] [address] 13 Jan, 2013 [facility] [address] [id number] [place] [address] 12 Jan, 2013 [facility] [address] [id number] [place] [address] 11 Jan, 2013 [facility] [address] [id number] [place] [address] 09 Jan, 2013 [facility] [address] [id number] [place] [address] 08 Jan, 2013 [facility] [address] [id number] [place] [address] 07 Jan, 2013 [facility] [place] [facility] [address] [id number] [place] [address] 06 Jan, 2013 [facility] [address] [id number] [place] [address] 17 Nov, 2012 [facility] [place] [facility] [address] [id number] [place] [address] Oct, [facility] [place] [facility] [address] [id number] [place] [address] Oct, [facility] [place] [facility] [address] [id number] [place] [address] Oct, [facility] [place] [facility] [address] [id number] [place] [address] Oct, [facility] [place] [facility] [address] [id number] [place] [address] Sep, [facility] [place] [facility] [address] [id number] [place] [address] Sep, [facility] [place] [facility] [address] [id number] [place] [address] Sep, [facility] [place] [facility] [address] [id number] [place] [address] Sep, [facility] [place] [facility] [address] [id number] [place] [address] Sep, [facility] [place] [facility] [address] [id number] [place] [address] Sep, [facility] [place] [facility] [address] [id number] [place] [address] Sep, [facility] [place] [facility] [address] [id number] [place] [address] Sep, [facility] [place] [facility] [address] [id number] [place] [address] Sep, [facility] [place] [facility] [address] [id number] [place] [address] Sep, [facility] [place] [facility] [address] [id number] [place] [address] Sep, [facility] [place] [facility] [address] [id number] [place] [address] Aug, [facility] [place] [facility] [address] [id number] [place] [address] Aug, [facility] [place] [facility] [address] [id number] [place] [address] Aug, [facility] [place] [facility] [address] [id number] [place] [address] 28 Jul, 2012 [facility] [place] [facility] [address] [id number] [place] [address] 25 Jul, 2012 [facility] [place] [facility] [address] [id number] [place] [address] 19 Jul, 2012 [facility] [place] [facility] [address] [id number] [place] [address] 17 Jul, 2012 [facility] [place] [facility] [address] [id number] [place] [address] 20 Jun, 2012 [facility] [place] [facility] [address] [id number] [place] [address] 16 Jun, 2012 [facility] [place] [facility] [address] [id number] [place] [address] 15 Jun, 2012 [facility] [place] [facility] [address] [id number] [place] [address] Jun, [facility] [place] [facility] [address] [id number] [place] [address] Jun, [facility] [place] [facility] [address] [id number] [place] [address] March, [facility] [place] [facility] [address] [id number] [place] [address] Feb, [facility] [place] [facility] [address] [id number] [place] [address] Jan, [facility] [place] [facility] [address] [id number] [place] [address] Jan, [facility] [place] [facility] [address] [id number] [place] [address] 22 Jan, 2012 [facility] [place] [facility] [address] [id number] [place] [address] 14 Jan, 2012 [facility] [place] [facility] [address] [id number] [place] [address] 14 Jan, 2012 [facility] [place] [facility] [address] [id number] [place] [address] 14 Jan, 2012 [facility] [place] [facility] [address] [id number] [place] [address] 28 Dec, 2011 [facility] [place] [facility] [address] [id number] [place] [address] 27 Dec, 2011 [facility] [place] [facility] [address] [id number] [place] [address] 23 Dec, 2011 [facility] [place] [facility] [address] [id number] [place] [address] 21 Dec, 2011 [facility] [place] [facility] [address] [id number] [place] [address] 20 Dec, 2011 [facility] [place] [facility] [address] [id number] [place] [address] 19 Dec, 2011 [facility] [place] [facility] [address] [id number] [place] [address] 17 Dec, 2011 [facility] [place] [facility] [address] [id number] [place] [address] 16 Dec, 2011 [facility] [place] [facility] [address] [id number] [place] [address] 31 Nov, 2011 [facility] [place] [facility] [address] [id number] [place] [address] 13 Oct, 2011 [facility] [place] [facility] [address] [id number] [place] [address] 18 Sep, 2011 [facility] [place] [facility] [address] [id number], [place] [address] Sep, [facility] [address] [facility] [id number] [address] Sep, [facility] [address] [id number] [address] Sep, [facility] [address] [id number] [address] Sep, [facility] [address] [id number] [address] Sep, [facility] [address] [id number], [place] [address] Jan, [facility] [address] [id number], [place] [address] Apr, IMMUNIZATIONS No Known Immunizations SOCIAL HISTORY [...] History Left ovary removed 12/2017 Hospitalization History [facility] Admission x4 2009 most recent admission Hospitalization History [facility]; overdose 2010 Hospitalization History child 11/29/2016 [facility]ization History [facility] 02/2019
--- OUTSIDE RECORDS SUMMARY | 2019-05-27 20:43 | XMS REPORT ---
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 Name Role Phone LISA FLO Unavailable PROBLEMS Type Condition ICD9-CM Code [id number] Code Onset Dates Condition Status SNOMED Code Problem Generalized anxiety disorder F41.1 Active 20274739 Problem Bipolar disorder, current episode mixed, moderate F31.62 Active 448782237 Problem Acute non intractable tension-type headache G44.209 Active 378775299 Problem Constipation K59.00 Active 09787265 Problem Post traumatic stress disorder F43.10 Active 93378897 Problem Borderline personality disorder F60.3 Active 19409164 Problem Endometriosis N80.9 Active 555127097 Problem Acute right-sided low back pain with right-sided sciatica M54.41 Active 338010361 ALLERGIES No Information ENCOUNTERS Encounter Location Date Diagnosis [facility] [id number] [place] [phone] Jun, [facility] [id number] [place] [phone] Apr, Bipolar disorder, current episode mixed, moderate F31.62 [facility] [id number] [place] [phone] Apr, Bipolar disorder, current episode mixed, moderate F31.62 ; Post traumatic stress disorder F43.10 and Borderline personality disorder F60.3 [facility] [id number] [place] [phone] March, Bipolar disorder, current episode mixed, moderate F31.62 [facility] [id number] [place] [phone] March, Bipolar disorder, current episode mixed, moderate F31.62 [facility] [id number] [place] [address] March, Bronchitis J40 [facility] [address] [phone] Feb, Bipolar disorder, current episode mixed, moderate F31.62 ; Post traumatic stress disorder F43.10 ; Borderline personality disorder F60.3 and 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 [place] [id number] [place] [address] Feb, Pelvic floor dysfunction M62.89 [place] [id number] [place] [address] Feb, Bipolar disorder, current episode mixed, moderate F31.62 [facility] [id number] [place] [phone] Jan, Dehydration E86.0 and Back muscle spasm M62.830 [place] [id number] [place] [address] Jan, Bipolar disorder, current episode mixed, moderate F31.62 ; Post traumatic stress disorder F43.10 ; Borderline personality disorder F60.3 and Other usp (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 Z79.899 [facility] [id number] [place] [phone] Jan, Cough R05 and Viral upper respiratory tract infection J06.9 [place] [id number] [place] [address] Jan, Bipolar disorder, current episode mixed, moderate F31.62 [place] [id number] [place] [address] Dec, Bipolar disorder, current episode mixed, moderate F31.62 [place] [id number] [place] [address] Nov, Bipolar disorder, current episode mixed, moderate F31.62 [facility] [id number] [place] [phone] Oct, Sore throat J02.9 [facility] [id number] [place] [phone] Oct, Abdominal pain R10.9 ; Low back pain M54.5 ; Left shoulder pain M25.512 and Constipation K59.00 [facility] [id number] [place] [address] Oct, Bipolar disorder, current episode mixed, moderate F31.62 ; Post traumatic stress disorder F43.10 and Borderline personality disorder F60.3 [place] [address] [address] Sep, Bipolar disorder, current episode mixed, moderate F31.62 [place] [id number] [place] [phone] Aug, Bipolar disorder, current episode mixed, moderate F31.62 [facility] [id number] [place] [phone] Jul, Thrombophlebitis I80.9 and Pelvic pain R10.2 [place] [id number] [place] [address] 05 Jul, 2018 Bipolar disorder, current episode mixed, moderate F31.62 ; Post traumatic stress disorder F43.10 and Borderline personality disorder F60.3 [place] [id number] [place] [address] Jun, Bipolar disorder, current episode mixed, moderate F31.62 [place] [id number] [place] [address] May, Palpitations R00.2 [place] [id number] [place] [address] May, Palpitations R00.2 [place] [id number] [place] [address] May, Palpitations R00.2 and Frequent bowel movements R19.4 [facility] [address] [place] [id number] 05 May, 2018 Bipolar disorder, current episode mixed, moderate F31.62 ; Post traumatic stress disorder F43.10 and Borderline personality disorder F60.3 [facility] [address] [place] [id number] 15 Apr, 2018 Dental examination Z01.20 [facility] [id number] [place] [id number] 15 Apr, 2018 [facility] [id number] [place] [id number] 15 Apr, 2018 Dental examination Z01.20 [facility] [id number] [place] [address] 15 Apr, 2018 Tooth pain K08.89 [facility] [address] [address] 06 Apr, 2018 Bipolar disorder, current episode mixed, moderate F31.62 ; Post traumatic stress disorder F43.10 and Borderline personality disorder F60.3 [facility] [id number] [place] [address] March, Abdominal pain R10.9 ; UTI symptoms R39.9 and Other microscopic hematuria R31.29 [place] [id number] [place] [address] March, [facility] [id number] [place] [address] March, Bipolar disorder, current episode mixed, moderate F31.62 ; Post traumatic stress disorder F43.10 and Borderline personality disorder F60.3 [place] [id number] [place] [address] Feb, Encounter for immunization Z23 [place] [id number] [place] [address] Feb, Bipolar disorder, current episode mixed, moderate F31.62 ; Post traumatic stress disorder F43.10 and Borderline personality disorder F60.3 [place] [address] [address] Feb, Bipolar disorder, current episode mixed, moderate F31.62 ; Post traumatic stress disorder F43.10 ; Borderline personality disorder F60.3 and Other usp (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 Z79.899 [place] [address] [address] Jan, Encounter for immunization Z23 [place] [address] [address] Jan, [place] [address] [address] Jan, Bipolar disorder, current episode mixed, moderate F31.62 [facility] [address] [address] Jan, Lumbar back pain M54.5 [place] [address] [address] Dec, Low back pain M54.5 [facility] [address] [address] 13 Dec, 2017 Bipolar disorder, current episode mixed, moderate F31.62 [place] [id number] [place] [address] Dec, Generalized anxiety disorder F41.1 and Bipolar disorder, current episode mixed, moderate F31.62 [facility] [id number] [place] [address] Nov, Acute non intractable tension-type headache G44.209 [facility] [address] [id number] Nov, Bipolar disorder, current episode mixed, moderate F31.62 ; Post traumatic stress disorder F43.10 and Borderline personality disorder F60.3 [place] [address] [place] [address] Nov, Bipolar disorder, current episode mixed, moderate F31.62 [facility] [place] [address] [address] Nov, Abdominal pain R10.9 ; History of PCOS Z87.42 ; History of endometriosis Z87.42 and Pelvic pain R10.2 [place] [address] [address] Nov, [facility] [address] [address] Oct, History of PCOS Z87.42 ; History of endometriosis Z87.42 and Pain R52 [place] [address] [address] Oct, Bipolar disorder, current episode mixed, moderate F31.62 ; Post traumatic stress disorder F43.10 and Borderline personality disorder F60.3 [place] [id number] [place] [address] Oct, Bipolar disorder, current episode mixed, moderate F31.62 [place] [id number] [place] [address] Sep, Bipolar disorder, current episode mixed, moderate F31.62 ; Post traumatic stress disorder F43.10 ; Borderline personality disorder F60.3 and 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 [place] [id number] [place] [address] Sep, Bipolar disorder, current episode mixed, moderate F31.62 [facility] [place] [address] [address] Sep, Endometriosis N80.9 and Acute right-sided low back pain with right- sided sciatica M54.41 [place] [address] [address] Aug, [facility] [address] [address] Aug, Bipolar disorder, current episode mixed, moderate F31.62 ; Post traumatic stress disorder F43.10 and Borderline personality disorder F60.3 [facility] [address] [address] 11 Aug, 2017 Bipolar disorder, current episode mixed, moderate F31.62 ; Post traumatic stress disorder F43.10 and Borderline personality disorder F60.3 [facility] [address] [address] 13 Jul, 2017 Bipolar disorder, current episode mixed, moderate F31.62 ; Post traumatic stress disorder F43.10 and Borderline personality disorder F60.3 [facility] [address] [address] 11 Jul, 2017 Pharyngitis, unspecified etiology J02.9 and Streptococcal pharyngitis J02.0 [facility] [address] [place] [address] Jun, Bipolar disorder, current episode mixed, moderate F31.62 ; Post traumatic stress disorder F43.10 and Borderline personality disorder F60.3 [facility] [address] [address] May, [place] [id number] [place] [address] May, [facility] [id number] [place] [address] May, Bipolar disorder, current episode mixed, moderate F31.62 and Generalized anxiety disorder F41.1 [place] [id number] [place] [address] March, Bipolar disorder, current episode mixed, moderate F31.62 and Generalized anxiety disorder F41.1 [place] [address] [place] [address] March, Pelvic pain R10.2 [facility] [address] [place] [address] March, [facility] [id number] [place] [address] Feb, Bipolar disorder, current episode mixed, moderate F31.62 and Generalized anxiety disorder F41.1 [facility] [id number] [place] [address] Jan, [facility] [id number] [place] [address] Jan, Bipolar disorder, current episode mixed, moderate F31.62 [facility] [id number] [place] [address] Jan, Bipolar disorder, current episode mixed, moderate F31.62 [facility] [id number] [place] [address] Jan, Bilateral low back pain without sciatica M54.5 [facility] [id number] [place] [phone] Jan, Dental caries K02.9 and Dental examination Z01.20 [facility] [id number] [place] [address] [phone] Jan, Encounter for dental examination and cleaning without abnormal findings Z01.20 [facility] [address] [place] [address] Jan, Bipolar disorder, current episode mixed, moderate F31.62 and Generalized anxiety disorder F41.1 [facility] [address] [place] [address] Dec, [facility] [id number] [place] [address] Dec, Bipolar disorder, current episode mixed, moderate F31.62 and Generalized anxiety disorder F41.1 [facility] [id number] [place] [address] 03 Dec, 2016 Other fatigue R53.83 and Orthostatic hypotension I95.1 [facility] [address] [place] [phone] Nov, Dental examination Z01.20 [facility] [address] [place] [address] Nov, Bronchitis J40 [place] [address] [address] 14 Oct, 2016 Generalized anxiety disorder F41.1 [place] [id number] [place] [address] 14 Sep, 2016 Bipolar disorder, current episode mixed, moderate F31.62 and Generalized anxiety disorder F41.1 [place] [id number] [place] [address] Sep, Bipolar disorder, current episode mixed, moderate F31.62 and Generalized anxiety disorder F41.1 [facility] [address] [place] [address] 08 Jul, 2016 Upper respiratory tract infection, unspecified type J06.9 [place] [id number] [place] [address] Jun, Bipolar disorder, current episode mixed, moderate F31.62 and Generalized anxiety disorder F41.1 [place] [id number] [place] [address] Apr, [place] [id number] [place] [address] Apr, Encounter for test, result positive Z32.01 [place] [id number] [place] [address] March, [place] [id number] [place] [address] March, Bipolar disorder, current episode mixed, moderate F31.62 and Generalized anxiety disorder F41.1 [place] [address] [address] March, Bipolar disorder, current episode mixed, moderate F31.62 and Generalized anxiety disorder F41.1 [facility] [address] [address] March, [facility] [id number] [place] [address] March, [facility] [id number] [place] [address] Feb, [facility] [id number] [place] [address] Feb, [facility] [id number] [place] [address] Feb, Bipolar disorder, current episode mixed, moderate F31.62 and Generalized anxiety disorder F41.1 [facility] [address] [place] [address] Jan, Abdominal pain R10.9 [facility] [address] [place] [address] Jan, [facility] [id number] [place] [address] Dec, Dental examination Z01.20 [facility] [address] [place] [address] Dec, Dental examination Z01.20 and Dental caries K02.9 [facility] [address] [address] 15 Dec, 2015 Bipolar disorder, current episode mixed, moderate F31.62 and Generalized anxiety disorder F41.1 [facility] [address] [address] Dec, [facility] [address] [place] [address] Nov, Bipolar disorder, current episode mixed, moderate F31.62 ; Generalized anxiety disorder F41.1 and Seizure-like activity R56.9 [facility] [id number] [place] [address] Oct, [facility] [id number] [place] [address] Oct, Bipolar disorder, current episode mixed, moderate F31.62 [facility] [id number] [place] [address] Oct, Well woman exam Z01.419 ; Encounter [...] Tobacco use Z72.0 and Hot flashes N95.1 [facility] [id number] [place] [address] 09 Oct, 2015 Seizure-like activity R56.9 and Irregular periods N92.6 [place] [id number] [place] [address] 07 Oct, 2015 Bipolar disorder, current episode mixed, moderate F31.62 ; Generalized anxiety disorder F41.1 and Underweight R63.6 [facility] [id number] [place] [address] Oct, [facility] [address] [address] Oct, Generalized anxiety disorder F41.1 and Unspecified mood [affective] disorder F39 [facility] [id number] [place] [address] Oct, Back pain M54.9 and Anxiety F41.9 [facility] [address] [place] [address] Oct, [facility] [id number] [place] [address] Sep, Arm pain, left M79.602 [facility] [id number] [place] [address] Sep, [facility] [id number] [place] [address] [id number] Sep, Dental examination Z01.20 and Dental caries K02.9 [facility] [id number] [place] [address] Sep, Generalized anxiety disorder F41.1 and Unspecified episodic mood disorder F39 [facility] [id number] [place] [address] Sep, Bilateral low back pain without sciatica M54.5 and Seizure-like activity R56.9 [facility] [id number] [place] [address] Aug, [facility] [id number] [place] [address] Aug, [facility] [id number] [place] [address] Aug, [facility] [id number] [place] [address] Aug, Visual changes H53.9 and Bilateral low back pain without sciatica M54.5 [facility] [id number] [place] [address] Jul, [facility] [id number] [place] [address] Jun, Bipolar I disorder, most recent episode (or current) mixed, moderate 296.62 ; Generalized anxiety disorder 300.02 and High risk medication use V58.69 [facility] [id number] [address] Jun, [facility] [id number] [place] [address] May, [facility] [id number] [place] [address] May, Bipolar I disorder, most recent episode (or current) mixed, moderate 296.62 and Generalized anxiety disorder 300.02 [facility] [id number] [place] [phone] May, Dental examination V72.2 [facility] [id number] [place] [address] March, Bipolar I disorder, most recent episode (or current) mixed, moderate 296.62 and Generalized anxiety disorder 300.02 [facility] [id number] [place] [address] March, [facility] [id number] [place] [address] March, [facility] [id number] [place] [address] March, Underweight 783.22 ; Hand pain, right 729.5 and Reflux gastritis 535.40 [facility] [id number] [place] [phone] Feb, [facility] [id number] [place] [phone] Feb, [facility] [id number] [place] [address] Jan, [facility] [id number] [place] [phone] Jan, [facility] [address] [place] [address] 16 Jan, 2015 [facility] [id number] [place] [address] 16 Jan, 2015 [facility] [place] [facility] [address] [id number] [place] [address] 13 Jan, 2015 [facility] [place] [facility] [address] [id number] [place] [address] 13 Jan, 2015 [facility] [place] [facility] [address] [facility] [id number] [place] [address] 05 Jan, 2015 [facility] [place] [facility] [address] [facility] [id number] [place] [address] 05 Jan, 2015 [facility] [place] [facility] [address] [id number] [place] [address] Jan, [facility] [place] [facility] [address] [facility] [id number] [place] [address] Jan, [facility] [place] [facility] [address] [facility] [id number] [place] [address] Jan, [facility] [place] [facility] [address] [facility] [id number] [place] [address] Jan, [facility] [place] [facility] [address] [facility] [id number] [place] [address] Dec, [facility] [place] [facility] [address] [facility] [id number] [place] [address] Dec, [facility] [place] [facility] [address] [facility] [id number] [place] [address] Dec, 2014 [facility] [place] [facility] [address] [facility] [id number] [place] [address] Dec, 2014 [facility] [place] [facility] [address] [facility] [id number] [place] [address] 18 Dec, 2014 [facility] [place] [facility] [address] [facility] [id number] [place] [address] 17 Dec, 2014 [facility] [place] [facility] [address] [facility] [id number] [place] [address] Dec, 2014 [facility] [place] [facility] [address] [id number] [place] [address] Dec, 2014 [facility] [place] [facility] [address] [id number] [place] [address] Dec, 2014 [facility] [place] [facility] [address] [id number] [place] [address] Dec, 2014 [facility] [place] [facility] [address] [id number] [place] [address] Dec, 2014 [facility] [place] [facility] [address] [id number] [place] [address] Dec, 2014 [facility] [place] [facility] [address] [id number] [place] [address] Dec, 2014 [facility] [place] [facility] [address] [facility] [id number] [place] [address] Dec, 2014 [facility] [place] [facility] [address] [id number] [place] [address] Dec, 2014 [facility] [place] [facility] [address] [id number] [place] [address] Dec, 2014 [facility] [place] [facility] [address] [facility] [id number] [place] [address] Dec, 2014 [facility] [place] [facility] [address] [id number] [place] [address] Dec, 2014 [facility] [place] [facility] [address] [id number] [place] [address] Dec, 2014 [facility] [place] [facility] [address] [id number] [place] [address] Nov, [facility] [place] [facility] [address] [id number] [place] [address] Nov, [facility] [place] [facility] [address] [facility] [id number] [place] [address] Nov, [facility] [place] [facility] [address] [id number] [place] [address] Nov, [facility] [place] [facility] [address] [id number] [place] [address] Nov, [facility] [place] [facility] [address] [id number] [place] [address] Nov, [facility] [place] [facility] [address] [id number] [place] [id number] Nov, [facility] [place] [facility] [address] [id number] [place] [address] Nov, [facility] [place] [facility] [address] [id number] [place] [address] Nov, [facility] [place] [facility] [address] [id number] [place] [id number] Nov, [facility] [place] [facility] [address] [id number] [place] [address] Nov, [facility] [place] [facility] [address] [id number] [place] [address] Nov, [facility] [place] [facility] [address] [id number] [place] [address] Oct, [facility] [place] [facility] [address] [id number] [place] [address] Oct, [facility] [place] [facility] [address] [id number] [place] [address] Oct, [facility] [place] [facility] [address] [id number] [place] [address] Oct, [facility] [place] [facility] [address] [id number] [place] [address] Oct, [facility] [place] [facility] [address] [id number] [place] [address] Oct, [facility] [place] [facility] [address] [id number] [place] [address] Oct, [facility] [place] [facility] [address] [id number] [place] [address] Oct, [facility] [place] [facility] [address] [id number] [place] [address] Oct, [facility] [place] [facility] [address] [id number] [place] [address] Oct, [facility] [place] [facility] [address] [id number] [place] [address] Oct, [facility] [place] [facility] [address] [id number] [place] [address] Oct, [facility] [place] [facility] [address] [id number] [place] [address] Sep, [facility] [place] [facility] [address] [id number] [place] [address] Sep, [facility] [place] [facility] [address] [id number] [place] [address] Sep, [facility] [place] [facility] [address] [id number] [place] [address] Sep, [facility] [place] [facility] [address] [id number] [place] [address] Sep, [facility] [place] [facility] [address] [id number] [place] [address] Sep, [facility] [place] [facility] [address] [id number] [place] [address] Sep, [facility] [place] [facility] [address] [id number] [place] [address] Sep, [facility] [place] [facility] [address] [id number] [place] [address] Aug, [facility] [place] [facility] [address] [id number] [place] [address] Aug, [facility] [place] [facility] [address] [id number] [place] [address] Aug, [facility] [place] [facility] [address] [id number] [place] [address] Aug, [facility] [place] [facility] [address] [id number] [place] [address] Aug, [facility] [place] [facility] [address] [id number] [place] [address] Aug, [facility] [place] [facility] [address] [id number] [place] [address] Aug, [facility] [place] [facility] [address] [id number] [place] [address] Aug, [facility] [place] [facility] [address] [id number] [place] [address] Aug, [facility] [place] [facility] [address] [id number] [place] [address] Aug, [facility] [place] [facility] [address] [id number] [place] [address] Aug, [facility] [place] [facility] [address] [id number] [place] [address] Aug, [facility] [place] [facility] [address] [id number] [place] [address] Aug, [facility] [place] [facility] [address] [id number] [place] [address] Jul, [facility] [place] [facility] [address] [id number] [place] [address] Jul, [facility] [place] [facility] [address] [id number] [place] [address] Jul, [facility] [place] [facility] [address] [id number] [place] [address] Jul, [facility] [place] [facility] [address] [id number] [place] [address] Jun, [facility] [place] [facility] [address] [id number] [place] [address] Jun, [facility] [place] [facility] [address] [id number] [place] [address] Jun, [facility] [place] [facility] [address] [id number] [place] [address] Jun, [facility] [place] [facility] [address] [id number] [place] [address] Jun, [facility] [place] [facility] [address] [id number] [place] [address] Jun, [facility] [place] [facility] [address] [id number] [place] [address] May, [facility] [place] [facility] [address] [id number] [place] [address] May, [facility] [place] [facility] [address] [id number] [place] [address] May, [facility] [place] [facility] [address] [id number] [place] [address] May, [facility] [place] [facility] [address] [id number] [place] [address] Apr, [facility] [place] [facility] [address] [id number] [place] [address] Apr, [facility] [place] [facility] [address] [id number] [place] [address] March, [facility] [place] [facility] [address] [id number] [place] [address] March, [facility] [place] [facility] [address] [id number] [place] [address] March, [facility] [place] [facility] [address] [id number] [place] [address] March, [facility] [place] [facility] [address] [id number] [place] [address] March, [facility] [place] [facility] [address] [id number] [place] [address] March, [facility] [place] [facility] [address] [id number] [place] [address] Feb, [facility] [place] [facility] [address] [id number] [place] [address] Feb, [facility] [place] [facility] [address] [id number] [place] [address] Dec, [facility] [place] [facility] [address] [id number] [place] [address] Dec, [facility] [place] [facility] [address] [id number] [place] [address] Nov, [facility] [place] [facility] [address] [id number] [place] [address] Nov, [facility] [place] [facility] [address] [id number] [place] [address] Sep, [facility] [place] [facility] [address] [id number] [place] [address] Sep, [facility] [place] [facility] [address] [id number] [place] [address] Sep, [facility] [place] [facility] [address] [id number] [place] [address] Sep, [facility] [place] [facility] [address] [id number] [place] [address] Sep, [facility] [place] [facility] [address] [id number] [place] [address] Sep, [facility] [place] [facility] [address] [id number] [place] [address] Sep, [facility] [place] [facility] [address] [id number] [place] [address] Aug, [facility] [place] [facility] [address] [id number] [place] [address] Aug, [facility] [place] [facility] [address] [id number] [place] [address] Aug, [facility] [place] [facility] [address] [id number] [place] [address] Aug, [facility] [place] [facility] [address] [id number] [place] [address] Aug, [facility] [place] [facility] [address] [id number] [place] [address] Aug, [facility] [place] [facility] [address] [id number] [place] [address] Jul, [facility] [place] [facility] [address] [id number] [place] [address] Jul, [facility] [place] [facility] [address] [id number] [place] [address] 16 Jul, 2013 [facility] [place] [facility] [address] [id number] [place] [address] Jul, [facility] [place] [facility] [address] [id number] [place] [address] Jun, [facility] [place] [facility] [address] [id number] [place] [address] Jun, [facility] [place] [facility] [address] [id number] [place] [address] Jun, [facility] [place] [facility] [address] [id number] [place] [address] Jun, [facility] [place] [facility] [address] [id number] [place] [address] Jun, [facility] [place] [facility] [address] [id number] [place] [address] Jun, [facility] [place] [facility] [address] [id number] [place] [address] Jun, [facility] [place] [facility] [address] [id number] [place] [address] 23 May, 2012 [facility] [place] [facility] [address] [id number] [place] [address] 23 May, 2012 [facility] [place] [facility] [address] [id number] [place] [address] 16 May, 2012 [facility] [place] [facility] [address] [id number] [place] [address] 15 May, 2012 [facility] [place] [facility] [address] [id number] [place] [address] 13 May, 2013 [facility] [place] [facility] [address] [id number] [place] [address] 05 May, 2013 [facility] [place] [facility] [address] [id number] [place] [address] 03 May, 2013 [facility] [place] [facility] [address] [id number] [place] [address] 28 Apr, 2013 [facility] [place] [facility] [address] [id number] [place] [address] 27 Apr, 2013 [facility] [place] [facility] [address] [id number] [place] [address] 27 Apr, 2013 [facility] [place] [facility] [address] [id number] [place] [address] 26 Apr, 2013 [facility] [place] [facility] [address] [id number] [place] [address] 20 Apr, 2013 [facility] [place] [facility] [address] [id number] [place] [address] 18 Apr, 2013 [facility] [place] [facility] [address] [id number] [place] [address] 18 Apr, 2013 [facility] [place] [facility] [address] [id number] [place] [address] 18 Apr, 2013 [facility] [place] [facility] [address] [id number] [place] [address] 17 Apr, 2013 [facility] [place] [facility] [address] [id number] [place] [address] 14 Apr, 2013 [facility] [place] [facility] [address] [id number] [place] [address] 14 Apr, 2013 [facility] [place] [facility] [address] [id number] [place] [address] 11 Apr, 2013 [facility] [place] [facility] [address] [id number] [place] [address] 10 Apr, 2013 [facility] [place] [facility] [address] [id number] [place] [address] 09 Apr, 2013 [facility] [place] [facility] [address] [id number] [place] [address] 07 Apr, 2013 [facility] [place] [facility] [address] [id number] [place] [address] 06 Apr, 2013 [facility] [place] [facility] [address] [id number] [place] [address] 06 Apr, 2013 [facility] [place] [facility] [address] [id number] [place] [address] 05 Apr, 2013 [facility] [place] [facility] [address] [id number] [place] [address] Apr, [facility] [place] [facility] [address] [id number] [place] [address] March, [facility] [place] [facility] [address] [id number] [place] [address] March, [facility] [place] [facility] [address] [id number] [place] [address] March, [facility] [place] [facility] [address] [id number] [place] [address] March, [facility] [place] [facility] [address] [id number] [place] [address] March, [facility] [place] [facility] [address] [id number] [place] [address] 11 Mar, 2013 [facility] [address] [id number] [place] [address] March, [facility] [address] [id number] [place] [address] Feb, [facility] [address] [id number] [place] [address] Feb, [facility] [address] [id number] [place] [address] 27 Jan, 2013 [facility] [address] [id number] [place] [address] 18 Jan, 2013 [facility] [address] [id number] [place] [address] 15 Jan, 2013 [facility] [address] [id number] [place] [address] 14 Jan, 2013 [facility] [address] [id number] [place] [address] 13 Jan, 2013 [facility] [address] [id number] [place] [address] 12 Jan, 2013 [facility] [address] [id number] [place] [address] 11 Jan, 2013 [facility] [address] [id number] [place] [address] 09 Jan, 2013 [facility] [address] [id number] [place] [address] 08 Jan, 2013 [facility] [address] [id number] [place] [address] 07 Jan, 2013 [facility] [place] [facility] [address] [id number] [place] [address] 06 Jan, 2013 [facility] [address] [id number] [place] [address] 17 Nov, 2012 [facility] [place] [facility] [address] [id number] [place] [address] Oct, [facility] [place] [facility] [address] [id number] [place] [address] Oct, [facility] [place] [facility] [address] [id number] [place] [address] Oct, [facility] [place] [facility] [address] [id number] [place] [address] Oct, [facility] [place] [facility] [address] [id number] [place] [address] Sep, [facility] [place] [facility] [address] [id number] [place] [address] Sep, [facility] [place] [facility] [address] [id number] [place] [address] Sep, [facility] [place] [facility] [address] [id number] [place] [address] Sep, [facility] [place] [facility] [address] [id number] [place] [address] Sep, [facility] [place] [facility] [address] [id number] [place] [address] Sep, [facility] [place] [facility] [address] [id number] [place] [address] Sep, [facility] [place] [facility] [address] [id number] [place] [address] Sep, [facility] [place] [facility] [address] [id number] [place] [address] Sep, [facility] [place] [facility] [address] [id number] [place] [address] Sep, [facility] [place] [facility] [address] [id number] [place] [address] Sep, [facility] [place] [facility] [address] [id number] [place] [address] Aug, [facility] [place] [facility] [address] [id number] [place] [address] Aug, [facility] [place] [facility] [address] [id number] [place] [address] Aug, [facility] [place] [facility] [address] [id number] [place] [address] 28 Jul, 2012 [facility] [place] [facility] [address] [id number] [place] [address] 25 Jul, 2012 [facility] [place] [facility] [address] [id number] [place] [address] 19 Jul, 2012 [facility] [place] [facility] [address] [id number] [place] [address] 17 Jul, 2012 [facility] [place] [facility] [address] [id number] [place] [address] 20 Jun, 2012 [facility] [place] [facility] [address] [id number] [place] [address] 16 Jun, 2012 [facility] [place] [facility] [address] [id number] [place] [address] 15 Jun, 2012 [facility] [place] [facility] [address] [id number] [place] [address] Jun, [facility] [place] [facility] [address] [id number] [place] [address] Jun, [facility] [place] [facility] [address] [id number] [place] [address] March, [facility] [place] [facility] [address] [id number] [place] [address] Feb, [facility] [place] [facility] [address] [id number] [place] [address] Jan, [facility] [place] [facility] [address] [id number] [place] [address] Jan, [facility] [place] [facility] [address] [id number] [place] [address] 22 Jan, 2012 [facility] [place] [facility] [address] [id number] [place] [address] 14 Jan, 2012 [facility] [place] [facility] [address] [id number] [place] [address] 14 Jan, 2012 [facility] [place] [facility] [address] [id number] [place] [address] 14 Jan, 2012 [facility] [place] [facility] [address] [id number] [place] [address] 28 Dec, 2011 [facility] [place] [facility] [address] [id number] [place] [address] 27 Dec, 2011 [facility] [place] [facility] [address] [id number] [place] [address] 23 Dec, 2011 [facility] [place] [facility] [address] [id number] [place] [address] 21 Dec, 2011 [facility] [place] [facility] [address] [id number] [place] [address] 20 Dec, 2011 [facility] [place] [facility] [address] [id number] [place] [address] 19 Dec, 2011 [facility] [place] [facility] [address] [id number] [place] [address] 17 Dec, 2011 [facility] [place] [facility] [address] [id number] [place] [address] 16 Dec, 2011 [facility] [place] [facility] [address] [id number] [place] [address] 31 Nov, 2011 [facility] [place] [facility] [address] [id number] [place] [address] 13 Oct, 2011 [facility] [place] [facility] [address] [id number] [place] [address] 18 Sep, 2011 [facility] [place] [facility] [address] [id number] [place] [address] Sep, [facility] [address] [facility] [id number] [place] [address] Sep, [facility] [address] [id number] [place] [address] Sep, [facility] [address] [id number] [place] [address] Sep, [facility] [address] [id number] [place] [address] Sep, [facility] [address] [id number] [place] [address] Jan, [facility] [address] [id number] [place] [address] Apr, IMMUNIZATIONS No Known Immunizations SOCIAL HISTORY [...] History Left ovary removed 12/2017 Hospitalization History [facility] Ad[facility] x4 2009 most recent admission Hospitalization History [facility]; overdose 2010 Hospitalization History child 11/29/2016 Hospitalization History [facility] 02/2019
--- OUTSIDE RECORDS SUMMARY | 2019-05-27 20:44 | XMS REPORT ---
Author Author JOSE Perez Organization [facility] Address [address] [place] [address] Care Team Providers Care Rfid Developer Name Role Phone joseGageCARLENE JOSE Unavailable PROBLEMS Type Condition ICD9-CM Code KYO14-OX Code Onset Dates Condition Status SNOMED Code Problem Generalized anxiety disorder F41.1 Active 32882743 Problem Bipolar disorder, current episode mixed, moderate F31.62 Active 357862461 Problem Acute non intractable tension-type headache G44.209 Active 644892357 Problem Constipation K59.00 Active 26833376 Problem Post traumatic stress disorder F43.10 Active 11400811 Problem Borderline personality disorder F60.3 Active 25987089 Problem Endometriosis N80.9 Active 260186855 Problem Acute right-sided low back pain with right-sided sciatica M54.41 Active 462682921 ALLERGIES No Information ENCOUNTERS Encounter Location Date Diagnosis [place] [id number] [place] [address] Jun, [facility] [id number] [place] [address] Apr, Bipolar disorder, current episode mixed, moderate F31.62 [facility] [id number] [place] [address] Apr, Bipolar disorder, current episode mixed, moderate F31.62 ; Post traumatic stress disorder F43.10 and Borderline personality disorder F60.3 [facility] [id number] [place] [address] March, Bipolar disorder, current episode mixed, moderate F31.62 [facility] [id number] [place] [address] March, Bipolar disorder, current episode mixed, moderate F31.62 [facility] [id number] [place] [address] March, Bronchitis J40 [place] [address] [address] Feb, Bipolar disorder, current episode mixed, moderate F31.62 ; Post traumatic stress disorder F43.10 ; Borderline personality disorder F60.3 and 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 [place] [address] [address] Feb, Pelvic floor dysfunction M62.89 [place] [address] [address] Feb, Bipolar disorder, current episode mixed, moderate F31.62 [facility] [address] [address] Jan, Dehydration E86.0 and Back muscle spasm M62.830 [place] [id number] [place] [address] Jan, Bipolar disorder, current episode mixed, moderate F31.62 ; Post traumatic stress disorder F43.10 ; Borderline personality disorder F60.3 and 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 [facility] [place] [place] [id number] [place] [address] Jan, Cough R05 and Viral upper respiratory tract infection J06.9 [place] [id number] [place] [address] Jan, Bipolar disorder, current episode mixed, moderate F31.62 [place] [address] [address] Dec, Bipolar disorder, current episode mixed, moderate F31.62 [place] [id number] [place] [address] Nov, Bipolar disorder, current episode mixed, moderate F31.62 [facility] [id number] [place] [address] Oct, Sore throat J02.9 [facility] [id number] [place] [address] Oct, Abdominal pain R10.9 ; Low back pain M54.5 ; Left shoulder pain M25.512 and Constipation K59.00 [facility] [address] [address] Oct, Bipolar disorder, current episode mixed, moderate F31.62 ; Post traumatic stress disorder F43.10 and Borderline personality disorder F60.3 [place] [id number] [place] [address] Sep, Bipolar disorder, current episode mixed, moderate F31.62 [place] [id number] [place] [address] Aug, Bipolar disorder, current episode mixed, moderate F31.62 [facility] [id number] [place] [address] Jul, Thrombophlebitis I80.9 and Pelvic pain R10.2 [place] [id number] [place] [address] 05 Jul, 2018 Bipolar disorder, current episode mixed, moderate F31.62 ; Post traumatic stress disorder F43.10 and Borderline personality disorder F60.3 [place] [id number] [place] [address] Jun, Bipolar disorder, current episode mixed, moderate F31.62 [place] [id number] [place] [address] May, Palpitations R00.2 [place] [id number] [place] [address] May, Palpitations R00.2 [place] [id number] [place] [address] May, Palpitations R00.2 and Frequent bowel movements R19.4 [facility] [id number] [place] [address] May, Bipolar disorder, current episode mixed, moderate F31.62 ; Post traumatic stress disorder F43.10 and Borderline personality disorder F60.3 [facility] [id number] [place] [id number] 15 Apr, 2018 Dental examination Z01.[address] [facility] [id number] [place] [address] Apr, [facility] [address] [address] Apr, Dental examination Z01.20 [facility] [id number] [place] [address] Apr, Tooth pain K08.89 [place] [address] [address] 06 Apr, 2018 Bipolar disorder, current episode mixed, moderate F31.62 ; Post traumatic stress disorder F43.10 and Borderline personality disorder F60.3 [facility] [id number] [place] [address] March, Abdominal pain R10.9 ; UTI symptoms R39.9 and Other microscopic hematuria R31.29 [place] [id number] [place] [address] March, [facility] [id number] [place] [address] March, Bipolar disorder, current episode mixed, moderate F31.62 ; Post traumatic stress disorder F43.10 and Borderline personality disorder F60.3 [facility] [id number] [place] [address] Feb, Encounter for immunization Z23 [place] [address] [address] Feb, Bipolar disorder, current episode mixed, moderate F31.62 ; Post traumatic stress disorder F43.10 and Borderline personality disorder F60.3 [place] [address] [address] [id number] Feb, Bipolar disorder, current episode mixed, moderate F31.62 ; Post traumatic stress disorder F43.10 ; Borderline personality disorder F60.3 and Other usp (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 Z79.899 [place] [address] [address] [address] Jan, Encounter for immunization Z23 [place] [address] [address] Jan, [place] [address] [address] Jan, Bipolar disorder, current episode mixed, moderate F31.62 [facility] [address] [address] Jan, Lumbar back pain M54.5 [place] [address] [address] Dec, Low back pain M54.5 [place] [address] [address] Dec, Bipolar disorder, current episode mixed, moderate F31.62 [place] [id number] [place] [address] Dec, Generalized anxiety disorder F41.1 and Bipolar disorder, current episode mixed, moderate F31.[address] [facility] [address] [address] Nov, Acute non intractable tension-type headache G44.209 [place] [id number] [place] [address] Nov, Bipolar disorder, current episode mixed, moderate F31.62 ; Post traumatic stress disorder F43.10 and Borderline personality disorder F60.3 [facility] [id number] [place] [address] Nov, Bipolar disorder, current episode mixed, moderate F31.62 [facility] [id number] [place] [address] Nov, Abdominal pain R10.9 ; History of PCOS Z87.42 ; History of endometriosis Z87.42 and Pelvic pain R10.2 [place] [address] [address] Nov, [facility] [address] [address] Oct, History of PCOS Z87.42 ; History of endometriosis Z87.42 and Pain R52 [place] [address] [address] Oct, Bipolar disorder, current episode mixed, moderate F31.62 ; Post traumatic stress disorder F43.10 and Borderline personality disorder F60.3 [place] [id number] [place] [address] Oct, Bipolar disorder, current episode mixed, moderate F31.62 [place] [id number] [place] [address] Sep, Bipolar disorder, current episode mixed, moderate F31.62 ; Post traumatic stress disorder F43.10 ; Borderline personality disorder F60.3 and 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 [place] [id number] [place] [address] Sep, Bipolar disorder, current episode mixed, moderate F31.62 [facility] [id number] [place] [address] Sep, Endometriosis N80.9 and Acute right-sided low back pain with right- sided sciatica M54.41 [place] [address] [address] Aug, [facility] [address] [address] Aug, Bipolar disorder, current episode mixed, moderate F31.62 ; Post traumatic stress disorder F43.10 and Borderline personality disorder F60.3 [facility] [address] [address] 11 Aug, 2017 Bipolar disorder, current episode mixed, moderate F31.62 ; Post traumatic stress disorder F43.10 and Borderline personality disorder F60.3 [facility] [address] [place] [address] 13 Jul, 2017 Bipolar disorder, current episode mixed, moderate F31.62 ; Post traumatic stress disorder F43.10 and Borderline personality disorder F60.3 [facility] [address] [address] 11 Jul, 2017 Pharyngitis, unspecified etiology J02.9 and Streptococcal pharyngitis J02.0 [facility] [address] [place] [address] 16 Jun, 2017 Bipolar disorder, current episode mixed, moderate F31.62 ; Post traumatic stress disorder F43.10 and Borderline personality disorder F60.3 [facility] [address] [address] May, [place] [address] [place] [address] May, [facility] [address] [place] [address] May, Bipolar disorder, current episode mixed, moderate F31.62 and Generalized anxiety disorder F41.1 [facility] [address] [place] [address] March, Bipolar disorder, current episode mixed, moderate F31.62 and Generalized anxiety disorder F41.1 [place] [address] [place] [address] March, Pelvic pain R10.2 [facility] [id number] [place] [address] March, [facility] [id number] [place], [place] [address] Feb, Bipolar disorder, current episode mixed, moderate F31.62 and Generalized anxiety disorder F41.1 [facility] [address] [address] Jan, [facility] [id number] [place] [address] Jan, Bipolar disorder, current episode mixed, moderate F31.62 [place] [id number] [place] [address] Jan, Bipolar disorder, current episode mixed, moderate F31.62 [place] [id number] [place] [address] Jan, Bilateral low back pain without sciatica M54.5 [facility] [id number] [place] [id number] Jan, Dental caries K02.9 and Dental examination Z01.20 [facility] [id number] [place] [id number] Jan, Encounter for dental examination and cleaning without abnormal findings Z01.20 [facility] [id number] [place] [address] Jan, Bipolar disorder, current episode mixed, moderate F31.62 and Generalized anxiety disorder F41.1 [facility] [id number] [place] [address] Dec, [facility] [id number] [place], [place] [address] Dec, Bipolar disorder, current episode mixed, moderate F31.62 and Generalized anxiety disorder F41.1 [facility] [id number] [place] [address] 03 Dec, 2016 Other fatigue R53.83 and Orthostatic hypotension I95.1 [facility] [address] [place] [id number] Nov, Dental examination Z01.20 [facility] [address] [place] [address] Nov, Bronchitis J40 [facility] [id number] [place] [address] 14 Oct, 2016 Generalized anxiety disorder F41.1 [place] [id number] [place] [address] 14 Sep, 2016 Bipolar disorder, current episode mixed, moderate F31.62 and Generalized anxiety disorder F41.1 [place] [id number] [place] [address] Sep, Bipolar disorder, current episode mixed, moderate F31.62 and Generalized anxiety disorder F41.1 [facility] [address] [place] [address] 08 Jul, 2016 Upper respiratory tract infection, unspecified type J06.9 [place] [id number] [place] [address] Jun, Bipolar disorder, current episode mixed, moderate F31.62 and Generalized anxiety disorder F41.1 [place] [address] [place] [address] Apr, [place] [id number] [place] [address] Apr, Encounter for test, result positive Z32.01 [facility] [id number] [place] [address] March, [facility] [id number] [place] [address] March, Bipolar disorder, current episode mixed, moderate F31.62 and Generalized anxiety disorder F41.1 [facility] [address] [address] March, Bipolar disorder, current episode mixed, moderate F31.62 and Generalized anxiety disorder F41.1 [facility] [address] [address] March, [facility] [id number] [place] [address] March, [facility] [address] [place] [address] Feb, [facility] [address] [place] [address] Feb, [facility] [id number] [place] [address] Feb, Bipolar disorder, current episode mixed, moderate F31.62 and Generalized anxiety disorder F41.1 [facility] [address] [place] [address] Jan, Abdominal pain R10.9 [facility] [address] [place] [address] Jan, [facility] [address] [place] [address] 29 Dec, 2015 Dental examination Z01.20 [facility] [address] [place] [address] Dec, Dental examination Z01.20 and Dental caries K02.9 [facility] [address] [address] 15 Dec, 2015 Bipolar disorder, current episode mixed, moderate F31.62 and Generalized anxiety disorder F41.1 [facility] [address] [address] Dec, [facility] [address] [place] [address] Nov, Bipolar disorder, current episode mixed, moderate F31.62 ; Generalized anxiety disorder F41.1 and Seizure-like activity R56.9 [facility] [id number] [place] [address] Oct, [facility] [id number] [place] [address] Oct, Bipolar disorder, current episode mixed, moderate F31.62 [facility] [address] [address] Oct, Well woman exam Z01.419 ; Encounter [...] Tobacco use Z72.0 and Hot flashes N95.1 [facility] [address] [address] Oct, Seizure-like activity R56.9 and Irregular periods N92.6 [place] [id number] [place] [address] Oct, Bipolar disorder, current episode mixed, moderate F31.62 ; Generalized anxiety disorder F41.1 and Underweight R63.6 [facility] [address] [place] [address] Oct, [facility] [address] [address] Oct, Generalized anxiety disorder F41.1 and Unspecified mood [affective] disorder F39 [facility] [id number] [place] [address] Oct, Back pain M54.9 and Anxiety F41.9 [facility] [address] [place] [address] Oct, [facility] [id number] [place] [address] Sep, Arm pain, left M79.602 [facility] [id number] [place] [address] Sep, [facility] [id number] [place] [id number] Sep, Dental examination Z01.20 and Dental caries K02.9 [facility] [address] [address] Sep, Generalized anxiety disorder F41.1 and Unspecified episodic mood disorder F39 [facility] [id number] [place] [address] Sep, Bilateral low back pain without sciatica M54.5 and Seizure-like activity R56.9 [facility] [id number] [place] [address] Aug, [facility] [id number] [place] [address] Aug, [facility] [id number] [place] [address] Aug, [facility] [id number] [place] [address] Aug, Visual changes H53.9 and Bilateral low back pain without sciatica M54.5 [facility] [id number] [place] [address] Jul, [facility] [id number] [place] [address] Jun, Bipolar I disorder, most recent episode (or current) mixed, moderate 296.62 ; Generalized anxiety disorder 300.02 and High risk medication use V58.69 [facility] [address] [place] [address] Jun, [facility] [id number] [place] [address] May, [facility] [id number] [place] [address] May, Bipolar I disorder, most recent episode (or current) mixed, moderate 296.62 and Generalized anxiety disorder 300.02 [facility] [id number] [place] [id number] May, Dental examination V72.2 [facility] [address] [address] March, Bipolar I disorder, most recent episode (or current) mixed, moderate 296.62 and Generalized anxiety disorder 300.02 [facility] [id number] [place] [address] March, [facility] [id number] [place] [address] March, [facility] [id number] [place] [address] March, Underweight 783.22 ; Hand pain, right 729.5 and Reflux gastritis 535.40 [facility] [id number] [place] [address] Feb, [facility] [id number] [place] [address] Feb, [facility] [id number] [place] [address] Jan, [facility] [id number] [place] [address] Jan, [facility] [id number] [place] [address] 16 Jan, 2015 [facility] [id number] [place] [address] 16 Jan, 2015 [facility] [place] [facility] [address] [id number] [place] [address] Jan, [facility] [place] [facility] [address] [id number] [place] [address] Jan, [facility] [place] [facility] [address] [facility] [id number] [place] [address] Jan, 2014 [facility] [place] [facility] [address] [facility] [id number] [place] [address] 05 Jan, 2014 [facility] [place] [facility] [address] [facility] [id number] [place] [address] Jan, [facility] [place] [facility] [address] [facility] [id number] [place] [address] Jan, [facility] [place] [facility] [address] [facility] [id number] [address] Jan, [facility] [place] [facility] [address] [facility] [id number] [address] Jan, [facility] [place] [facility] [address] [facility] [id number] [address] Dec, 2014 [facility] [place] [facility] [address] [facility] [id number] [address] Dec, 2014 [facility] [place] [facility] [address] [facility] [id number] [place] [address] Dec, 2014 [facility] [place] [facility] [address] [facility] [id number] [place] [address] Dec, 2014 [facility] [place] [facility] [address] [facility] [id number] [place] [address] 18 Dec, 2014 [facility] [place] [facility] [address] [facility] [id number] [place] [address] Dec, 2014 [facility] [place] [facility] [address] [facility] [id number] [place] [address] Dec, 2014 [facility] [place] [facility] [address] [id number] [place] [address] Dec, 2014 [facility] [place] [facility] [address] [id number] [place] [address] Dec, 2014 [facility] [place] [facility] [address] [id number] [place] [address] Dec, 2014 [facility] [place] [facility] [address] [id number] [place] [address] Dec, 2014 [facility] [place] [facility] [address] [id number] [place] [address] Dec, 2014 [facility] [place] [facility] [address] [id number] [place] [address] Dec, 2014 [facility] [place] [facility] [address] [id number] [place] [address] Dec, 2014 [facility] [place] [facility] [address] [id number] [place] [address] Dec, 2014 [facility] [place] [facility] [address] [id number] [place] [address] Dec, 2014 [facility] [facility] [address] [id number] [place] [address] Dec, 2014 [facility] [address] [id number] [place] [address] Dec, 2014 [facility] [place] [facility] [address] [id number] [place] [address] Dec, 2014 [facility] [place] [facility] [address] [id number] [place] [address] Nov, [facility] [place] [facility] [address] [id number] [place] [address] Nov, [facility] [address] [id number] [place] [address] Nov, [facility] [address] [id number] [place] [address] Nov, [facility] [address] [id number] [place] [address] Nov, [facility] [address] [id number] [place] [address] Nov, [facility] [address] [id number] [place] [id number] Nov, [facility] [address] [id number] [place] [address] Nov, [facility] [address] [id number] [place] [address] Nov, [facility] [address] [id number] [place] [id number] Nov, [facility] [address] [id number] [place] [address] Nov, [facility] [address] [id number] [place] [address] Nov, [facility] [address] [id number] [place] [address] Oct, [facility] [address] [id number] [place] [address] Oct, [facility] [address] [id number] [place] [address] Oct, [facility] [address] [id number] [place] [address] 30 Oct, 2014 [facility] [address] [id number] [place] [address] Oct, [facility] [address] [id number] [place] [address] Oct, [facility] [address] [id number] [place] [address] Oct, [facility] [address] [id number] [place] [address] Oct, [facility] [address] [id number] [place] [address] Oct, [facility] [address] [id number] [place] [address] Oct, [facility] [address] [id number] [place] [address] Oct, [facility] [address] [id number] [place] [address] Oct, [facility] [address] [id number] [place] [address] Sep, [facility] [address] [id number] [place] [address] Sep, [facility] [address] [id number] [place] [address] Sep, [facility] [address] [id number] [place] [address] Sep, [facility] [address] [id number] [place] [address] Sep, [facility] [address] [id number] [place] [address] Sep, [facility] [address] [id number] [place] [address] Sep, [facility] [address] [id number] [place] [address] Sep, [facility] [address] [id number] [place] [address] Aug, [facility] [address] [id number] [place] [address] Aug, [facility] [address] [id number] [place] [address] Aug, [facility] [address] [id number] [place] [address] Aug, [facility] [address] [id number] [place] [address] Aug, [facility] [place] [address] [id number] [place] [address] Aug, [facility] [address] [id number] [place] [address] Aug, [facility] [address] [id number] [place] [address] Aug, [facility] [address] [id number] [place] [address] Aug, [facility] [address] [id number] [place] [address] Aug, [facility] [address] [id number] [place] [address] Aug, [facility] [address] [id number] [place] [address] Aug, [facility] [address] [id number] [place] [address] Aug, [facility] [address] [id number] [address] Jul, [facility] [address] [id number] [address] 22 Jul, 2014 [facility] [address] [id number] [place] [address] Jul, [facility] [address] [id number] [place] [address] Jul, [facility] [address] [id number] [place] [address] Jun, [facility] [address] [id number] [place] [address] Jun, [facility] [address] [id number] [place] [address] Jun, [facility] [address] [id number] [place] [address] Jun, [facility] [address] [id number] [place] [address] Jun, [facility] [address] [id number] [place] [address] Jun, [facility] [address] [id number] [place] [address] May, [facility] [address] [id number] [place] [address] May, [facility] [address] [id number] [place] [address] May, [facility] [address] [id number] [place] [address] May, [facility] [address] [id number] [place] [address] Apr, [facility] [address] [id number] [place] [address] Apr, [facility] [address] [id number] [place] [address] March, [facility] [address] [id number] [place] [address] March, [facility] [address] [id number] [place] [address] March, [facility] [address] [id number] [place] [address] March, [facility] [address] [id number] [place] [address] March, [facility] [address] [id number] [place] [address] March, [facility] [address] [id number] [place] [address] Feb, [facility] [address] [id number] [place] [address] Feb, [facility] [address] [id number] [place] [address] Dec, [facility] [address] [id number] [place] [address] Dec, [facility] [address] [id number] [place] [address] Nov, [facility] [address] [id number] [place] [address] Nov, [facility] [address] [id number] [place] [address] Sep, [facility] [address] [id number] [place] [address] Sep, [facility] [address] [id number] [place] [address] Sep, [facility] [address] [id number] [address] Sep, [facility] [address] [id number] [address] Sep, [facility] [address] [id number] [place] [address] Sep, [facility] [address] [id number] [place] [address] Sep, [facility] [address] [id number] [place] [address] Aug, [facility] [address] [id number] [place] [address] 30 Aug, 2013 [facility] [address] [id number] [place] [address] Aug, [facility] [address] [id number] [place] [address] Aug, [facility] [address] [id number] [place] [address] Aug, [facility] [address] [id number] [place] [address] Aug, [facility] [address] [id number] [place] [address] Jul, [facility] [address] [id number] [place] [address] Jul, [facility] [address] [id number] [place] [address] 16 Jul, 2013 [facility] [address] [id number] [place] [address] Jul, [facility] [address] [id number] [place] [address] Jun, [facility] [address] [id number] [place] [address] Jun, [facility] [address] [id number] [place] [address] Jun, [facility] [address] [id number] [place] [address] Jun, [facility] [address] [id number] [place] [address] Jun, [facility] [address] [id number] [place] [address] Jun, [facility] [address] [id number] [place] [address] Jun, [facility] [address] [id number] [place] [address] May, [facility] [address] [id number] [place] [address] 23 May, 2013 [facility] [address] [id number] [place] [address] 16 May, 2013 [facility] [address] [id number] [place] [address] 15 May, 2013 [facility] [address] [id number] [place] [address] 13 May, 2013 [facility] [address] [id number] [place] [address] 05 May, 2013 [facility] [address] [id number] [place] [address] May, [facility] [address] [id number] [place] [address] 28 Apr, 2013 [facility] [address] [id number] [place] [address] Apr, [facility] [address] [id number] [place] [address] Apr, [facility] [address] [id number] [place] [address] Apr, [facility] [address] [id number] [place] [address] Apr, [facility] [address] [id number] [place] [address] Apr, [facility] [address] [id number] [place] [address] Apr, [facility] [address] [id number] [place] [address] 18 Apr, 2013 [facility] [address] [id number] [place] [address] 17 Apr, 2013 [facility] [address] [id number] [place] [address] 14 Apr, 2013 [facility] [address] [id number] [place] [address] 14 Apr, 2013 [facility] [address] [id number] [place] [address] 11 Apr, 2013 [facility] [address] [id number] [place] [address] 10 Apr, 2013 [facility] [address] [id number] [place] [address] 09 Apr, 2013 [facility] [address] [id number] [place] [address] 07 Apr, 2013 [facility] [address] [id number] [place] [address] 06 Apr, 2013 [facility] [address] [id number] [place] [address] 06 Apr, 2013 [facility] [address] [id number] [place] [address] 05 Apr, 2013 [facility] [address] [id number] [place] [address] Apr, [facility] [address] [id number] [place] [address] March, [facility] [address] [id number] [place] [address] March, [facility] [address] [id number] [place] [address] March, [facility] [address] [id number] [place] [address] March, [facility] [address] [id number] [place] [address] March, [facility] [address] [id number] [place] [address] March, [facility] [address] [id number] [place] [address] March, [facility] [address] [id number] [place] [address] Feb, [facility] [address] [id number] [place] [address] Feb, [facility] [address] [id number] [place] [address] 27 Jan, 2013 [facility] [address] [id number] [place] [address] 18 Jan, 2013 [facility] [address] [id number] [place] [address] 15 Jan, 2013 [facility] [address] [id number] [place] [address] 14 Jan, 2013 [facility] [address] [id number] [place] [address] 13 Jan, 2013 [facility] [address] [id number] [place] [address] 12 Jan, 2013 [facility] [address] [id number] [place] [address] 11 Jan, 2013 [facility] [address] [id number] [place] [address] 09 Jan, 2013 [facility] [address] [id number] [place] [address] 08 Jan, 2013 [facility] [address] [id number] [place] [address] 07 Jan, 2013 [facility] [address] [id number] [place] [address] 06 Jan, 2013 [facility] [address] [id number] [place] [address] Nov, [facility] [place] [facility] [address] [id number] [place] [address] Oct, [facility] [place] [facility] [address] [id number] [place] [address] Oct, [facility] [place] [facility] [address] [id number] [place] [address] Oct, [facility] [place] [facility] [address] [id number] [place] [address] Oct, [facility] [place] [facility] [address] [id number] [place] [address] Sep, [facility] [place] [facility] [address] [id number] [place] [address] Sep, [facility] [place] [facility] [address] [id number] [place] [address] Sep, [facility] [place] [facility] [address] [id number] [place] [address] Sep, [facility] [place] [facility] [address] [id number] [place] [address] Sep, [facility] [place] [facility] [address] [id number] [place] [address] Sep, [facility] [place] [facility] [address] [id number] [address] Sep, [facility] [place] [facility] [address] [id number] [place] [address] Sep, [facility] [place] [facility] [address] [id number] [place] [address] Sep, [facility] [place] [facility] [address] [id number] [address] Sep, [facility] [place] [facility] [address] [facility] [id number] [place] [address] Sep, [facility] [place] [facility] [address] [id number] [place] [address] Aug, [facility] [place] [facility] [address] [id number] [place] [address] Aug, [facility] [place] [facility] [address] [id number] [place] [address] Aug, [facility] [place] [facility] [address] [id number] [place] [address] 28 Jul, 2012 [facility] [place] [facility] [address] [id number] [place] [address] 25 Jul, 2012 [facility] [place] [facility] [address] [id number] [place] [address] 19 Jul, 2012 [facility] [place] [facility] [address] [id number] [place] [address] 17 Jul, 2012 [facility] [place] [facility] [address] [id number] [place] [address] 20 Jun, 2012 [facility] [place] [facility] [address] [id number] [place] [address] 16 Jun, 2012 [facility] [place] [facility] [address] [facility] [id number] [place] [address] 15 Jun, 2012 [facility] [place] [facility] [address] [facility] [id number] [place] [address] 15 Jun, 2012 [facility] [place] [facility] [address] [id number] [place] [address] Jun, [facility] [place] [facility] [address] [id number] [place] [address] March, [facility] [place] [facility] [address] [id number] [place] [address] Feb, [facility] [place] [facility] [address] [id number] [place] [address] Jan, [facility] [place] [facility] [address] [facility] [id number] [place] [address] Jan, [facility] [place] [facility] [address] [id number] [place] [address] 22 Jan, 2012 [facility] [place] [facility] [address] [id number] [place] [address] 14 Jan, 2012 [facility] [place] [facility] [address] [id number] [place] [address] 14 Jan, 2012 [facility] [place] [facility] [address] [id number] [place] [address] 14 Jan, 2012 [facility] [place] [facility] [address] [id number] [place] [address] 28 Dec, 2011 [facility] [place] [facility] [address] [id number] [place] [address] 27 Dec, 2011 [facility] [place] [facility] [address] [id number] [place] [address] 23 Dec, 2011 [facility] [place] [facility] [address] [id number] [place] [address] 21 Dec, 2011 [facility] [place] [facility] [address] [id number] [place] [address] 20 Dec, 2011 [facility] [place] [facility] [address] [facility] [id number] [place] [address] 19 Dec, 2011 [facility] [place] [facility] [address] [facility] [id number] [place] [address] 17 Dec, 2011 [facility] [place] [facility] [address] [id number] [place] [address] 16 Dec, 2011 [facility] [place] [facility] [address] [id number] [place] [address] 31 Nov, 2011 [facility] [place] [facility] [address] [id number] [place] [address] Oct, [facility] [place] [facility] [address] [id number] [place] [address] 18 Sep, 2011 [facility] [place] [facility] [address] [id number] [place] [address] Sep, [facility] [address] [id number] [address] Sep, [facility] [address] [id number] [address] Sep, [facility] [id number] [address] Sep, [facility] [id number] [address] Sep, [facility] [id number] [address] Jan, [facility] [address] [id number] [address] Apr, IMMUNIZATIONS No Known Immunizations SOCIAL HISTORY [...] History Left ovary removed 12/2017 Hospitalization History [facility] Admission x4 2009 most recent admission Hospitalization History [facility]; overdose 2010 Hospitalization History child 11/29/2016 Hospitalization History [facility] 02/2019
--- OUTSIDE RECORDS SUMMARY | 2019-05-27 20:45 | XMS REPORT ---
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 Name Role Phone GODWIN Sparrow Unavailable PROBLEMS Type Condition ICD9-CM Code ECG57-XV Code Onset Dates Condition Status SNOMED Code Problem Generalized anxiety disorder F41.1 Active 59752492 Problem Bipolar disorder, current episode mixed, moderate F31.62 Active 373983869 Problem Acute non intractable tension-type headache G44.209 Active 215709639 Problem Constipation K59.00 Active 48033639 Problem Post traumatic stress disorder F43.10 Active 42415393 Problem Borderline personality disorder F60.3 Active 01605268 Problem Endometriosis N80.9 Active 055664108 Problem Acute right-sided low back pain with right-sided sciatica M54.41 Active 906524484 ALLERGIES No Information ENCOUNTERS Encounter Location Date Diagnosis [facility] [id number] [place] [address] Jun, [facility] [id number] [place] [address] Apr, Bipolar disorder, current episode mixed, moderate F31.62 [facility] [id number] [place] [address] Apr, Bipolar disorder, current episode mixed, moderate F31.62 ; Post traumatic stress disorder F43.10 and Borderline personality disorder F60.3 [facility] [id number] [place] [address] March, Bipolar disorder, current episode mixed, moderate F31.62 [facility] [id number] [place] [address] March, Bipolar disorder, current episode mixed, moderate F31.62 [facility] [id number] [place] [address] March, Bronchitis J40 [facility] [address] [address] Feb, Bipolar disorder, current episode mixed, moderate F31.62 ; Post traumatic stress disorder F43.10 ; Borderline personality disorder F60.3 and Other penitentiary (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 Z79.899 [place] [id number] [place] [address] Feb, Pelvic floor dysfunction M62.89 [place] [id number] [place] [address] Feb, Bipolar disorder, current episode mixed, moderate F31.62 [facility] [id number] [place] [address] Jan, Dehydration E86.0 and Back muscle spasm M62.830 [place] [id number] [place] [address] Jan, Bipolar disorder, current episode mixed, moderate F31.62 ; Post traumatic stress disorder F43.10 ; Borderline personality disorder F60.3 and Other penitentiary (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 Z79.899 [facility] [id number] [place] [address] Jan, Cough R05 and Viral upper respiratory tract infection J06.9 [place] [id number] [place] [address] Jan, Bipolar disorder, current episode mixed, moderate F31.62 [place] [id number] [place] [address] Dec, Bipolar disorder, current episode mixed, moderate F31.62 [place] [id number] [place] [address] Nov, Bipolar disorder, current episode mixed, moderate F31.62 [facility] [id number] [place] [address] Oct, Sore throat J02.9 [facility] [id number] [place] [address] Oct, Abdominal pain R10.9 ; Low back pain M54.5 ; Left shoulder pain M25.512 and Constipation K59.00 [facility] [id number] [place] [address] Oct, Bipolar disorder, current episode mixed, moderate F31.62 ; Post traumatic stress disorder F43.10 and Borderline personality disorder F60.3 [place] [address] [address] Sep, Bipolar disorder, current episode mixed, moderate F31.62 [place] [id number] [place] [address] Aug, Bipolar disorder, current episode mixed, moderate F31.62 [facility] [id number] [place] [address] Jul, Thrombophlebitis I80.9 and Pelvic pain R10.2 [place] [id number] [place] [address] 05 Jul, 2018 Bipolar disorder, current episode mixed, moderate F31.62 ; Post traumatic stress disorder F43.10 and Borderline personality disorder F60.3 [place] [id number] [place] [address] Jun, Bipolar disorder, current episode mixed, moderate F31.62 [place] [id number] [place] [address] May, Palpitations R00.2 [place] [id number] [place] [address] May, Palpitations R00.2 [place] [id number] [place] [address] May, Palpitations R00.2 and Frequent bowel movements R19.4 [facility] [address] [place] [address] 05 May, 2018 Bipolar disorder, current episode mixed, moderate F31.62 ; Post traumatic stress disorder F43.10 and Borderline personality disorder F60.3 [facility] [address] [place] [id number] 15 Apr, 2018 Dental examination Z01.20 [facility] [id number] [place] [address] 15 Apr, 2018 [facility] [id number] [place] [address] 15 Apr, 2018 Tooth pain K08.89 [place] [id number] [place] [address] 15 Apr, 2018 Dental examination Z01.20 [facility] [id number] [place] [address] 06 Apr, 2018 Bipolar disorder, current episode mixed, moderate F31.62 ; Post traumatic stress disorder F43.10 and Borderline personality disorder F60.3 [facility] [id number] [place] [address] March, Abdominal pain R10.9 ; UTI symptoms R39.9 and Other microscopic hematuria R31.29 [place] [id number] [place] [address] March, [place] [id number] [place] [address] March, Bipolar disorder, current episode mixed, moderate F31.62 ; Post traumatic stress disorder F43.10 and Borderline personality disorder F60.3 [place] [id number] [place] [address] Feb, Encounter for immunization Z23 [place] [id number] [place] [address] Feb, Bipolar disorder, current episode mixed, moderate F31.62 ; Post traumatic stress disorder F43.10 and Borderline personality disorder F60.3 [place] [address] [address] Feb, Bipolar disorder, current episode mixed, moderate F31.62 ; Post traumatic stress disorder F43.10 ; Borderline personality disorder F60.3 and Other [employer] (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 Z79.899 [place] [address] [address] [address] Jan, Encounter for immunization Z23 [place] [address] [address] Jan, [place] [address] [place] [address] Jan, Bipolar disorder, current episode mixed, moderate F31.62 [facility] [address] [address] Jan, Lumbar back pain M54.5 [place] [address] [address] Dec, Low back pain M54.5 [facility] [address] [address] 13 Dec, 2017 Bipolar disorder, current episode mixed, moderate F31.62 [place] [id number] [place] [address] Dec, Generalized anxiety disorder F41.1 and Bipolar disorder, current episode mixed, moderate F31.62 [facility] [id number] [place] [address] Nov, Acute non intractable tension-type headache G44.209 [facility] [address] [id number] Nov, Bipolar disorder, current episode mixed, moderate F31.62 ; Post traumatic stress disorder F43.10 and Borderline personality disorder F60.3 [place] [address] [place] [address] Nov, Bipolar disorder, current episode mixed, moderate F31.62 [facility] [place] [address] [address] Nov, Abdominal pain R10.9 ; History of PCOS Z87.42 ; History of endometriosis Z87.42 and Pelvic pain R10.2 [place] [address] [address] Nov, [facility] [address] [address] Oct, History of PCOS Z87.42 ; History of endometriosis Z87.42 and Pain R52 [place] [address] [address] Oct, Bipolar disorder, current episode mixed, moderate F31.62 ; Post traumatic stress disorder F43.10 and Borderline personality disorder F60.3 [place] [id number] [place] [address] Oct, Bipolar disorder, current episode mixed, moderate F31.62 [place] [id number] [place] [address] Sep, Bipolar disorder, current episode mixed, moderate F31.62 ; Post traumatic stress disorder F43.10 ; Borderline personality disorder F60.3 and Other [employer] (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 Z79.899 [place] [id number] [place] [address] Sep, Bipolar disorder, current episode mixed, moderate F31.62 [facility] [place] [address] [address] Sep, Endometriosis N80.9 and Acute right-sided low back pain with right- sided sciatica M54.41 [place] [address] [address] Aug, [facility] [address] [address] Aug, Bipolar disorder, current episode mixed, moderate F31.62 ; Post traumatic stress disorder F43.10 and Borderline personality disorder F60.3 [facility] [address] [address] 11 Aug, 2017 Bipolar disorder, current episode mixed, moderate F31.62 ; Post traumatic stress disorder F43.10 and Borderline personality disorder F60.3 [facility] [address] [address] 13 Jul, 2017 Bipolar disorder, current episode mixed, moderate F31.62 ; Post traumatic stress disorder F43.10 and Borderline personality disorder F60.3 [facility] [address] [address] 11 Jul, 2017 Pharyngitis, unspecified etiology J02.9 and Streptococcal pharyngitis J02.0 [facility] [address] [place] [address] Jun, Bipolar disorder, current episode mixed, moderate F31.62 ; Post traumatic stress disorder F43.10 and Borderline personality disorder F60.3 [facility] [address] [address] May, [place] [address] [place] [address] May, [facility] [id number] [place] [address] May, Bipolar disorder, current episode mixed, moderate F31.62 and Generalized anxiety disorder F41.1 [place] [id number] [place] [address] March, Bipolar disorder, current episode mixed, moderate F31.62 and Generalized anxiety disorder F41.1 [place] [address] [place] [address] March, Pelvic pain R10.2 [facility] [address] [place] [address] March, [facility] [id number] [place], [place] [address] Feb, Bipolar disorder, current episode mixed, moderate F31.62 and Generalized anxiety disorder F41.1 [facility] [id number] [place] [address] Jan, [facility] [id number] [place] [address] Jan, Bipolar disorder, current episode mixed, moderate F31.62 [facility] [id number] [place] [address] Jan, Bipolar disorder, current episode mixed, moderate F31.62 [facility] [id number] [place] [address] Jan, Bilateral low back pain without sciatica M54.5 [facility] [id number] [place] [id number] Jan, Dental caries K02.9 and Dental examination Z01.20 [facility] [id number] [place] [id number] Jan, Encounter for dental examination and cleaning without abnormal findings Z01.20 [facility] [address] [place] [address] Jan, Bipolar disorder, current episode mixed, moderate F31.62 and Generalized anxiety disorder F41.1 [facility] [address] [place] [address] Dec, [facility] [id number] [place], [place] [address] Dec, Bipolar disorder, current episode mixed, moderate F31.62 and Generalized anxiety disorder F41.1 [facility] [id number] [place] [address] 03 Dec, 2016 Other fatigue R53.83 and Orthostatic hypotension I95.1 [facility] [address] [place] [id number] Nov, Dental examination Z01.20 [facility] [address] [place] [address] Nov, Bronchitis J40 [place] [address] [address] 14 Oct, 2016 Generalized anxiety disorder F41.1 [place] [id number] [place] [address] 14 Sep, 2016 Bipolar disorder, current episode mixed, moderate F31.62 and Generalized anxiety disorder F41.1 [place] [id number] [place] [address] Sep, Bipolar disorder, current episode mixed, moderate F31.62 and Generalized anxiety disorder F41.1 [facility] [address] [place] [address] 08 Jul, 2016 Upper respiratory tract infection, unspecified type J06.9 [place] [id number] [place] [address] Jun, Bipolar disorder, current episode mixed, moderate F31.62 and Generalized anxiety disorder F41.1 [place] [id number] [place] [address] Apr, [place] [id number] [place] [address] Apr, Encounter for test, result positive Z32.01 [place] [id number] [place] [address] March, [place] [id number] [place] [address] March, Bipolar disorder, current episode mixed, moderate F31.62 and Generalized anxiety disorder F41.1 [place] [address] [address] March, Bipolar disorder, current episode mixed, moderate F31.62 and Generalized anxiety disorder F41.1 [facility] [address] [address] March, [facility] [id number] [place] [address] March, [facility] [id number] [place] [address] Feb, [facility] [id number] [place] [address] Feb, [facility] [id number] [place] [address] Feb, Bipolar disorder, current episode mixed, moderate F31.62 and Generalized anxiety disorder F41.1 [facility] [address] [place] [address] Jan, Abdominal pain R10.9 [facility] [address] [place] [address] Jan, [facility] [id number] [place] [address] Dec, Dental examination Z01.20 [facility] [address] [place] [address] Dec, Dental examination Z01.20 and Dental caries K02.9 [facility] [address] [address] 15 Dec, 2015 Bipolar disorder, current episode mixed, moderate F31.62 and Generalized anxiety disorder F41.1 [facility] [address] [address] Dec, [facility] [address] [place] [address] Nov, Bipolar disorder, current episode mixed, moderate F31.62 ; Generalized anxiety disorder F41.1 and Seizure-like activity R56.9 [facility] [id number] [place] [address] Oct, [facility] [id number] [place] [address] Oct, Bipolar disorder, current episode mixed, moderate F31.62 [facility] [id number] [place] [address] Oct, Well woman exam Z01.419 ; Encounter [...] Tobacco use Z72.0 and Hot flashes N95.1 [facility] [id number] [place] [address] 09 Oct, 2015 Seizure-like activity R56.9 and Irregular periods N92.6 [place] [id number] [place] [address] 07 Oct, 2015 Bipolar disorder, current episode mixed, moderate F31.62 ; Generalized anxiety disorder F41.1 and Underweight R63.6 [facility] [id number] [place] [address] Oct, [facility] [address] [address] Oct, Generalized anxiety disorder F41.1 and Unspecified mood [affective] disorder F39 [facility] [id number] [place] [address] Oct, Back pain M54.9 and Anxiety F41.9 [facility] [address] [place] [address] Oct, [facility] [id number] [place] [address] Sep, Arm pain, left M79.602 [facility] [id number] [place] [address] Sep, [facility] [id number] [place] [id number] Sep, Dental examination Z01.20 and Dental caries K02.9 [facility] [id number] [place] [address] Sep, Generalized anxiety disorder F41.1 and Unspecified episodic mood disorder F39 [facility] [id number] [place] [address] Sep, Bilateral low back pain without sciatica M54.5 and Seizure-like activity R56.9 [facility] [id number] [place] [address] Aug, [facility] [id number] [place] [address] Aug, [facility] [id number] [place] [address] Aug, [facility] [id number] [place] [address] Aug, Visual changes H53.9 and Bilateral low back pain without sciatica M54.5 [facility] [id number] [place] [address] Jul, [facility] [id number] [place] [address] Jun, Bipolar I disorder, most recent episode (or current) mixed, moderate 296.62 ; Generalized anxiety disorder 300.02 and High risk medication use V58.69 [facility] [id number] [address] Jun, [facility] [id number] [place] [address] May, [facility] [id number] [place] [address] May, Bipolar I disorder, most recent episode (or current) mixed, moderate 296.62 and Generalized anxiety disorder 300.02 [facility] [id number] [place] [phone] May, Dental examination V72.2 [facility] [id number] [place] [address] March, Bipolar I disorder, most recent episode (or current) mixed, moderate 296.62 and Generalized anxiety disorder 300.02 [facility] [id number] [place] [address] March, [facility] [id number] [place] [address] March, [facility] [id number] [place] [address] March, Underweight 783.22 ; Hand pain, right 729.5 and Reflux gastritis 535.40 [facility] [id number] [place] [address] Feb, [facility] [id number] [place] [address] Feb, [facility] [id number] [place] [address] Jan, [facility] [id number] [place] [address] Jan, [facility] [address] [place] [address] 16 Jan, 2015 [facility] [id number] [place] [address] 16 Jan, 2015 [facility] [place] [facility] [address] [id number] [place] [address] 13 Jan, 2015 [facility] [place] [facility] [address] [id number] [place] [address] 13 Jan, 2015 [facility] [place] [facility] [address] [facility] [id number] [place] [address] 05 Jan, 2015 [facility] [place] [facility] [address] [facility] [id number] [place] [address] 05 Jan, 2015 [facility] [place] [facility] [address] [id number] [place] [address] Jan, [facility] [place] [facility] [address] [facility] [id number] [place] [address] Jan, [facility] [place] [facility] [address] [facility] [id number] [place] [address] Jan, [facility] [place] [facility] [address] [facility] [id number] [place] [address] Jan, [facility] [place] [facility] [address] [facility] [id number] [place] [address] Dec, [facility] [place] [facility] [address] [facility] [id number] [place] [address] Dec, [facility] [place] [facility] [address] [facility] [id number] [place] [address] Dec, 2014 [facility] [place] [facility] [address] [facility] [id number] [place] [address] Dec, 2014 [facility] [place] [facility] [address] [facility] [id number] [place] [address] 18 Dec, 2014 [facility] [place] [facility] [address] [facility] [id number] [place] [address] 17 Dec, 2014 [facility] [place] [facility] [address] [facility] [id number] [place] [address] Dec, 2014 [facility] [place] [facility] [address] [id number] [place] [address] Dec, 2014 [facility] [place] [facility] [address] [id number] [place] [address] Dec, 2014 [facility] [place] [facility] [address] [id number] [place] [address] Dec, 2014 [facility] [place] [facility] [address] [id number] [place] [address] Dec, 2014 [facility] [place] [facility] [address] [id number] [place] [address] Dec, 2014 [facility] [place] [facility] [address] [id number] [place] [address] Dec, 2014 [facility] [place] [facility] [address] [facility] [id number] [place] [address] Dec, 2014 [facility] [place] [facility] [address] [id number] [place] [address] Dec, 2014 [facility] [place] [facility] [address] [id number] [place] [address] Dec, 2014 [facility] [place] [facility] [address] [facility] [id number] [place] [address] Dec, 2014 [facility] [place] [facility] [address] [id number] [address] Dec, 2014 [facility] [place] [facility] [address] [id number] [address] Dec, 2014 [facility] [place] [facility] [address] [id number] [place] [address] Nov, [facility] [place] [facility] [address] [id number] [place] [address] Nov, [facility] [place] [facility] [address] [facility] [id number] [place] [address] Nov, [facility] [place] [facility] [address] [id number] [place] [address] Nov, [facility] [place] [facility] [address] [id number] [place] [address] Nov, [facility] [place] [facility] [address] [id number] [place] [address] Nov, [facility] [place] [facility] [address] [id number] [place] [id number] Nov, [facility] [place] [facility] [address] [id number] [place] [address] Nov, [facility] [place] [facility] [address] [id number] [place] [address] Nov, [facility] [place] [facility] [address] [id number] [place] [id number] Nov, [facility] [place] [facility] [address] [id number] [place] [address] Nov, [facility] [place] [facility] [address] [id number] [place] [address] Nov, [facility] [place] [facility] [address] [id number] [place] [address] Oct, [facility] [place] [facility] [address] [id number] [place] [address] Oct, [facility] [place] [facility] [address] [id number] [place] [address] Oct, [facility] [place] [facility] [address] [id number] [place] [address] Oct, [facility] [place] [facility] [address] [id number] [place] [address] Oct, [facility] [place] [facility] [address] [id number] [place] [address] Oct, [facility] [place] [facility] [address] [id number] [place] [address] Oct, [facility] [place] [facility] [address] [id number] [place] [address] Oct, [facility] [place] [facility] [address] [id number] [place] [address] Oct, [facility] [place] [facility] [address] [id number] [place] [address] Oct, [facility] [place] [facility] [address] [id number] [place] [address] Oct, [facility] [place] [facility] [address] [id number] [place] [address] Oct, [facility] [place] [facility] [address] [id number] [place] [address] Sep, [facility] [place] [facility] [address] [id number] [place] [address] Sep, [facility] [place] [facility] [address] [id number] [place] [address] Sep, [facility] [place] [facility] [address] [id number] [place] [address] Sep, [facility] [place] [facility] [address] [id number] [place] [address] Sep, [facility] [place] [facility] [address] [id number] [place] [address] Sep, [facility] [place] [facility] [address] [id number] [place] [address] Sep, [facility] [place] [facility] [address] [id number] [place] [address] Sep, [facility] [place] [facility] [address] [id number] [place] [address] Aug, [facility] [place] [facility] [address] [id number] [place] [address] Aug, [facility] [place] [facility] [address] [id number] [place] [address] Aug, [facility] [place] [facility] [address] [id number] [place] [address] Aug, [facility] [place] [facility] [address] [id number] [place] [address] Aug, [facility] [place] [facility] [address] [id number] [place] [address] Aug, [facility] [place] [facility] [address] [id number] [place] [address] Aug, [facility] [place] [facility] [address] [id number] [place] [address] Aug, [facility] [place] [facility] [address] [id number] [place] [address] Aug, [facility] [place] [facility] [address] [id number] [place] [address] Aug, [facility] [place] [facility] [address] [id number] [place] [address] Aug, [facility] [place] [facility] [address] [id number] [place] [address] Aug, [facility] [place] [facility] [address] [id number] [place] [address] Aug, [facility] [place] [facility] [address] [id number] [place] [address] Jul, [facility] [place] [facility] [address] [id number] [place] [address] Jul, [facility] [place] [facility] [address] [id number] [place] [address] Jul, [facility] [place] [facility] [address] [id number] [place] [address] Jul, [facility] [place] [facility] [address] [id number] [place] [address] Jun, [facility] [place] [facility] [address] [id number] [place] [address] Jun, [facility] [place] [facility] [address] [id number] [place] [address] Jun, [facility] [place] [facility] [address] [id number] [place] [address] Jun, [facility] [place] [facility] [address] [id number] [place] [address] Jun, [facility] [place] [facility] [address] [id number] [place] [address] Jun, [facility] [place] [facility] [address] [id number] [place] [address] May, [facility] [place] [facility] [address] [id number] [place] [address] May, [facility] [place] [facility] [address] [id number] [place] [address] May, [facility] [place] [facility] [address] [id number] [place] [address] May, [facility] [place] [facility] [address] [id number] [place] [address] Apr, [facility] [place] [facility] [address] [id number] [place] [address] Apr, [facility] [place] [facility] [address] [id number] [place] [address] March, [facility] [place] [facility] [address] [id number] [place] [address] March, [facility] [place] [facility] [address] [id number] [place] [address] March, [facility] [place] [facility] [address] [id number] [place] [address] March, [facility] [place] [facility] [address] [id number] [place] [address] March, [facility] [place] [facility] [address] [id number] [place] [address] March, [facility] [place] [facility] [address] [id number] [place] [address] Feb, [facility] [place] [facility] [address] [id number] [place] [address] Feb, [facility] [place] [facility] [address] [id number] [place] [address] Dec, [facility] [place] [facility] [address] [id number] [place] [address] Dec, [facility] [place] [facility] [address] [id number] [place] [address] Nov, [facility] [place] [facility] [address] [id number] [place] [address] Nov, [facility] [place] [facility] [address] [id number] [place] [address] Sep, [facility] [place] [facility] [address] [id number] [place] [address] Sep, [facility] [place] [facility] [address] [id number] [place] [address] Sep, [facility] [place] [facility] [address] [id number] [place] [address] Sep, [facility] [place] [facility] [address] [id number] [place] [address] Sep, [facility] [place] [facility] [address] [id number] [place] [address] Sep, [facility] [place] [facility] [address] [id number] [place] [address] Sep, [facility] [place] [facility] [address] [id number] [place] [address] Aug, [facility] [place] [facility] [address] [id number] [place] [address] Aug, [facility] [place] [facility] [address] [id number] [place] [address] Aug, [facility] [place] [facility] [address] [id number] [place] [address] Aug, [facility] [place] [facility] [address] [id number] [place] [address] Aug, [facility] [place] [facility] [address] [id number] [place] [address] Aug, [facility] [place] [facility] [address] [id number] [place] [address] Jul, [facility] [place] [facility] [address] [id number] [place] [address] Jul, [facility] [place] [facility] [address] [id number] [place] [address] 16 Jul, 2013 [facility] [place] [facility] [address] [id number] [place] [address] Jul, [facility] [place] [facility] [address] [id number] [place] [address] Jun, [facility] [place] [facility] [address] [id number] [place] [address] Jun, [facility] [place] [facility] [address] [id number] [place] [address] Jun, [facility] [place] [facility] [address] [id number] [place] [address] Jun, [facility] [place] [facility] [address] [id number] [place] [address] Jun, [facility] [place] [facility] [address] [id number] [place] [address] Jun, [facility] [place] [facility] [address] [id number] [place] [address] Jun, [facility] [place] [facility] [address] [id number] [place] [address] 23 May, 2012 [facility] [place] [facility] [address] [id number] [place] [address] 23 May, 2012 [facility] [place] [facility] [address] [id number] [place] [address] 16 May, 2012 [facility] [place] [facility] [address] [id number] [place] [address] 15 May, 2012 [facility] [place] [facility] [address] [id number] [place] [address] 13 May, 2013 [facility] [place] [facility] [address] [id number] [place] [address] 05 May, 2013 [facility] [place] [facility] [address] [id number] [place] [address] 03 May, 2013 [facility] [place] [facility] [address] [id number] [place] [address] 28 Apr, 2013 [facility] [place] [facility] [address] [id number] [place] [address] 27 Apr, 2013 [facility] [place] [facility] [address] [id number] [place] [address] 27 Apr, 2013 [facility] [place] [facility] [address] [id number] [place] [address] 26 Apr, 2013 [facility] [place] [facility] [address] [id number] [place] [address] 20 Apr, 2013 [facility] [place] [facility] [address] [id number] [place] [address] 18 Apr, 2013 [facility] [place] [facility] [address] [id number] [place] [address] 18 Apr, 2013 [facility] [place] [facility] [address] [id number] [place] [address] 18 Apr, 2013 [facility] [place] [facility] [address] [id number] [place] [address] 17 Apr, 2013 [facility] [place] [facility] [address] [id number] [place] [address] 14 Apr, 2013 [facility] [place] [facility] [address] [id number] [place] [address] 14 Apr, 2013 [facility] [place] [facility] [address] [id number] [place] [address] 11 Apr, 2013 [facility] [place] [facility] [address] [id number] [place] [address] 10 Apr, 2013 [facility] [place] [facility] [address] [id number] [place] [address] 09 Apr, 2013 [facility] [place] [facility] [address] [id number] [place] [address] 07 Apr, 2013 [facility] [place] [facility] [address] [id number] [place] [address] 06 Apr, 2013 [facility] [place] [facility] [address] [id number] [place] [address] 06 Apr, 2013 [facility] [place] [facility] [address] [id number] [place] [address] 05 Apr, 2013 [facility] [place] [facility] [address] [id number] [place] [address] Apr, [facility] [place] [facility] [address] [id number] [place] [address] March, [facility] [place] [facility] [address] [id number] [place] [address] March, [facility] [place] [facility] [address] [id number] [place] [address] March, [facility] [place] [facility] [address] [id number] [place] [address] March, [facility] [place] [facility] [address] [id number] [place] [address] March, [facility] [place] [facility] [address] [id number] [place] [address] 11 Mar, 2013 [facility] [address] [id number] [place] [address] March, [facility] [address] [id number] [place] [address] Feb, [facility] [address] [id number] [place] [address] Feb, [facility] [address] [id number] [place] [address] 27 Jan, 2013 [facility] [address] [id number] [place] [address] 18 Jan, 2013 [facility] [address] [id number] [place] [address] 15 Jan, 2013 [facility] [address] [id number] [place] [address] 14 Jan, 2013 [facility] [address] [id number] [place] [address] 13 Jan, 2013 [facility] [address] [id number] [place] [address] 12 Jan, 2013 [facility] [address] [id number] [place] [address] 11 Jan, 2013 [facility] [address] [id number] [place] [address] 09 Jan, 2013 [facility] [address] [id number] [place] [address] 08 Jan, 2013 [facility] [address] [id number] [place] [address] 07 Jan, 2013 [facility] [place] [facility] [address] [id number] [place] [address] 06 Jan, 2013 [facility] [address] [id number] [place] [address] 17 Nov, 2012 [facility] [place] [facility] [address] [id number] [place] [address] Oct, [facility] [place] [facility] [address] [id number] [place] [address] Oct, [facility] [place] [facility] [address] [id number] [place] [address] Oct, [facility] [place] [facility] [address] [id number] [place] [address] Oct, [facility] [place] [facility] [address] [id number] [place] [address] Sep, [facility] [place] [facility] [address] [id number] [place] [address] Sep, [facility] [place] [facility] [address] [id number] [place] [address] Sep, [facility] [place] [facility] [address] [id number] [place] [address] Sep, [facility] [place] [facility] [address] [id number] [place] [address] Sep, [facility] [place] [facility] [address] [id number] [place] [address] Sep, [facility] [place] [facility] [address] [id number] [place] [address] Sep, [facility] [place] [facility] [address] [id number] [place] [address] Sep, [facility] [place] [facility] [address] [id number] [place] [address] Sep, [facility] [place] [facility] [address] [id number] [place] [address] Sep, [facility] [place] [facility] [address] [id number] [place] [address] Sep, [facility] [place] [facility] [address] [id number] [place] [address] Aug, [facility] [place] [facility] [address] [id number] [place] [address] Aug, [facility] [place] [facility] [address] [id number] [place] [address] Aug, [facility] [place] [facility] [address] [id number] [place] [address] 28 Jul, 2012 [facility] [place] [facility] [address] [id number] [place] [address] 25 Jul, 2012 [facility] [place] [facility] [address] [id number] [place] [address] 19 Jul, 2012 [facility] [place] [facility] [address] [id number] [place] [address] 17 Jul, 2012 [facility] [place] [facility] [address] [id number] [place] [address] 20 Jun, 2012 [facility] [place] [facility] [address] [id number] [place] [address] 16 Jun, 2012 [facility] [place] [facility] [address] [id number] [place] [address] 15 Jun, 2012 [facility] [place] [facility] [address] [id number] [place] [address] Jun, [facility] [place] [facility] [address] [id number] [place] [address] Jun, [facility] [place] [facility] [address] [id number] [place] [address] March, [facility] [place] [facility] [address] [id number] [place] [address] Feb, [facility] [place] [facility] [address] [id number] [place] [address] Jan, [facility] [place] [facility] [address] [id number] [place] [address] Jan, [facility] [place] [facility] [address] [id number] [place] [address] 22 Jan, 2012 [facility] [place] [facility] [address] [id number] [place] [address] 14 Jan, 2012 [facility] [place] [facility] [address] [id number] [place] [address] 14 Jan, 2012 [facility] [place] [facility] [address] [id number] [place] [address] 14 Jan, 2012 [facility] [place] [facility] [address] [id number] [place] [address] 28 Dec, 2011 [facility] [place] [facility] [address] [id number] [place] [address] 27 Dec, 2011 [facility] [place] [facility] [address] [id number] [place] [address] 23 Dec, 2011 [facility] [place] [facility] [address] [id number] [place] [address] 21 Dec, 2011 [facility] [place] [facility] [address] [id number] [place] [address] 20 Dec, 2011 [facility] [place] [facility] [address] [id number] [place] [address] 19 Dec, 2011 [facility] [place] [facility] [address] [id number] [place] [address] 17 Dec, 2011 [facility] [place] [facility] [address] [id number] [place] [address] 16 Dec, 2011 [facility] [place] [facility] [address] [id number] [place] [address] 31 Nov, 2011 [facility] [place] [facility] [address] [id number] [place] [address] 13 Oct, 2011 [facility] [place] [facility] [address] [id number] [place] [address] 18 Sep, 2011 [facility] [place] [facility] [address] [id number] [address] Sep, [facility] [address] [facility] [id number] [address] Sep, [facility] [address] [id number] [address] Sep, [facility] [address] [id number] [address] Sep, [facility] [address] [id number] [address] Sep, [facility] [address] [id number] [address] Jan, [facility] [address] [id number] [address] Apr, IMMUNIZATIONS No Known Immunizations SOCIAL HISTORY [...] History Left ovary removed 12/2017 Hospitalization History [facility] Admission x4 2009 most recent admission Hospitalization History [facility]; overdose 2010 Hospitalization History child 11/29/2016 [facility]ization History [facility] 02/2019
--- OUTSIDE RECORDS SUMMARY | 2019-05-27 20:46 | XMS REPORT ---
Author Author DEMOND MILLER Organization [facility] [place] Address [address] [place] [address] Care Team Providers Care Visual Merchandising Assistant Name Role Phone DEMOND MILLER Unavailable PROBLEMS Type Condition ICD9-CM Code [id number] Code Onset Dates Condition Status SNOMED Code Problem Generalized anxiety disorder F41.1 Active 18268240 Problem Bipolar disorder, current episode mixed, moderate F31.62 Active 969870120 Problem Acute non intractable tension-type headache G44.209 Active 907015418 Problem Constipation K59.00 Active 15505190 Problem Post traumatic stress disorder F43.10 Active 70077594 Problem Borderline personality disorder F60.3 Active 50864670 Problem Endometriosis N80.9 Active 042011032 Problem Acute right-sided low back pain with right-sided sciatica M54.41 Active [id number] ALLERGIES No Information ENCOUNTERS Encounter Location Date Diagnosis [facility] [place] [id number] [place] [address] Jun, [facility] [place] [id number] [place] [address] Apr, Bipolar disorder, current episode mixed, moderate F31.62 [facility] [place] [id number] [place] [address] Apr, Bipolar disorder, current episode mixed, moderate F31.62 ; Post traumatic stress disorder F43.10 and Borderline personality disorder F60.3 [facility] [place] [address] [place] [address] March, Bipolar disorder, current episode mixed, moderate F31.62 [facility] [place] [address] [place] [address] March, Bipolar disorder, current episode mixed, moderate F31.[address] [facility] [id number] [place] [address] March, Bronchitis J40 [place] [address] [address] Feb, Bipolar disorder, current episode mixed, moderate F31.62 ; Post traumatic stress disorder F43.10 ; Borderline personality disorder F60.3 and Other oysterman (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 Z79.899 [place] [address] [address] Feb, Pelvic floor dysfunction M62.89 [place] [address] [address] Feb, Bipolar disorder, current episode mixed, moderate F31.62 [facility] [address] [address] Jan, Dehydration E86.0 and Back muscle spasm M62.830 [place] [address] [address] Jan, Bipolar disorder, current episode mixed, moderate F31.62 ; Post traumatic stress disorder F43.10 ; Borderline personality disorder F60.3 and Other oysterman (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 Z79.899 [facility] [id number] [place] [address] Jan, Cough R05 and Viral upper respiratory tract infection J06.9 [place] [id number] [place] [address] Jan, Bipolar disorder, current episode mixed, moderate F31.62 [place] [id number] [place] [address] Dec, Bipolar disorder, current episode mixed, moderate F31.62 [place] [id number] [place] [address] Nov, Bipolar disorder, current episode mixed, moderate F31.62 [facility] [address] [place] [address] Oct, Sore throat J02.9 [facility] [id number] [place] [address] Oct, Abdominal pain R10.9 ; Low back pain M54.5 ; Left shoulder pain M25.512 and Constipation K59.00 [facility] [place] [address] [address] Oct, Bipolar disorder, current episode mixed, moderate F31.62 ; Post traumatic stress disorder F43.10 and Borderline personality disorder F60.3 [place] [address] [address] Sep, Bipolar disorder, current episode mixed, moderate F31.62 [facility] [place] [address] [address] Aug, Bipolar disorder, current episode mixed, moderate F31.62 [facility] [place] [id number] [place] [address] Jul, Thrombophlebitis I80.9 and Pelvic pain R10.2 [place] [id number] [place] [address] 05 Jul, 2018 Bipolar disorder, current episode mixed, moderate F31.62 ; Post traumatic stress disorder F43.10 and Borderline personality disorder F60.3 [facility] [place] [id number] [place] [address] Jun, Bipolar disorder, current episode mixed, moderate F31.62 [place] [id number] [place] [address] May, Palpitations R00.2 [place] [address] [address] May, Palpitations R00.2 [facility] [place] [id number] [place] [address] May, Palpitations R00.2 and Frequent bowel movements R19.4 [facility] [place] [address] [place] [address] 05 May, 2018 Bipolar disorder, current episode mixed, moderate F31.62 ; Post traumatic stress disorder F43.10 and Borderline personality disorder F60.3 [facility] [address] [place] [id number] 15 Apr, 2018 Dental examination Z01.20 [facility] [id number] [place] [address] Apr, [facility] [id number] [place] [address] 15 Apr, 2018 Tooth pain K08.89 [place] [id number] [place] [address] 15 Apr, 2018 Dental examination Z01.20 [place] [id number] [place] [address] 06 Apr, 2018 Bipolar disorder, current episode mixed, moderate F31.62 ; Post traumatic stress disorder F43.10 and Borderline personality disorder F60.[address] [facility] [id number] [place] [address] March, Abdominal pain R10.9 ; UTI symptoms R39.9 and Other microscopic hematuria R31.29 [place] [id number] [place] [address] March, [place] [id number] [place] [address] March, Bipolar disorder, current episode mixed, moderate F31.62 ; Post traumatic stress disorder F43.10 and Borderline personality disorder F60.3 [place] [id number] [place] [address] Feb, Encounter for immunization Z23 [facility] [place] [id number] [place] [address] Feb, Bipolar disorder, current episode mixed, moderate F31.62 ; Post traumatic stress disorder F43.10 and Borderline personality disorder F60.3 [place] [id number] [place] [address] Feb, Bipolar disorder, current episode mixed, moderate F31.62 ; Post traumatic stress disorder F43.10 ; Borderline personality disorder F60.3 and Other oysterman (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 Z79.899 [place] [address] [place] [address] Jan, Encounter for immunization Z23 [place] [address] [address] Jan, [place] [address] [address] Jan, Bipolar disorder, current episode mixed, moderate F31.62 [facility] [address] [address] Jan, Lumbar back pain M54.5 [place] [address] [address] Dec, Low back pain M54.5 [place] [address] [address] Dec, Bipolar disorder, current episode mixed, moderate F31.62 [place] [id number] [place] [address] Dec, Generalized anxiety disorder F41.1 and Bipolar disorder, current episode mixed, moderate F31.62 [facility] [id number] [place] [address] Nov, Acute non intractable tension-type headache G44.209 [facility] [place] [address] [address] Nov, Bipolar disorder, current episode mixed, moderate F31.62 ; Post traumatic stress disorder F43.10 and Borderline personality disorder F60.3 [place] [id number] [place] [address] Nov, Bipolar disorder, current episode mixed, moderate F31.62 [facility] [place] [address] [address] Nov, Abdominal pain R10.9 ; History of PCOS Z87.42 ; History of endometriosis Z87.42 and Pelvic pain R10.2 [place] [address] [address] Nov, [facility] [place] [address] [address] Oct, History of PCOS Z87.42 ; History of endometriosis Z87.42 and Pain R52 [address] [address] Oct, Bipolar disorder, current episode mixed, moderate F31.62 ; Post traumatic stress disorder F43.10 and Borderline personality disorder F60.3 [place] [address] [address] Oct, Bipolar disorder, current episode mixed, moderate F31.[address] [address] Sep, Bipolar disorder, current episode mixed, moderate F31.62 ; Post traumatic stress disorder F43.10 ; Borderline personality disorder F60.3 and Other oysterman (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 Z79.899 [place] [address] [id number] [place] [address] Sep, Bipolar disorder, current episode mixed, moderate F31.[address] [facility] [address] [address] Sep, Endometriosis N80.9 and Acute right-sided low back pain with right- sided sciatica M54.[address] [address] Aug, [place] [address] [address] Aug, Bipolar disorder, current episode mixed, moderate F31.62 ; Post traumatic stress disorder F43.10 and Borderline personality disorder F60.3 [facility] [place] [address] [place] [address] 11 Aug, 2017 Bipolar disorder, current episode mixed, moderate F31.62 ; Post traumatic stress disorder F43.10 and Borderline personality disorder F60.3 [facility] [place] [id number] [place] [address] 13 Jul, 2017 Bipolar disorder, current episode mixed, moderate F31.62 ; Post traumatic stress disorder F43.10 and Borderline personality disorder F60.3 [facility] [address] [place] [address] 11 Jul, 2017 Pharyngitis, unspecified etiology J02.9 and Streptococcal pharyngitis J02.0 [facility] [place] [id number] [place] [address] 16 Jun, 2017 Bipolar disorder, current episode mixed, moderate F31.62 ; Post traumatic stress disorder F43.10 and Borderline personality disorder F60.3 [place] [address] [place] [address] May, [place] [id number] [place] [address] May, [facility] [place] [id number] [place] [address] May, Bipolar disorder, current episode mixed, moderate F31.62 and Generalized anxiety disorder F41.1 [place] [id number] [place] [address] March, Bipolar disorder, current episode mixed, moderate F31.62 and Generalized anxiety disorder F41.1 [place] [address] [place] [address] 04 Mar, 2017 Pelvic pain R10.2 [facility] [place] [address] [place] [address] March, [facility] [place] [id number] [place], [place] [address] Feb, Bipolar disorder, current episode mixed, moderate F31.62 and Generalized anxiety disorder F41.1 [facility] [place] [id number] [place] [address] Jan, [facility] [place] [id number] [place] [address] Jan, Bipolar disorder, current episode mixed, moderate F31.62 [facility] [place] [id number] [place] [address] Jan, Bipolar disorder, current episode mixed, moderate F31.62 [facility] [place] [id number] [place] [address] Jan, Bilateral low back pain without sciatica M54.5 [facility] [id number] [place] [id number] Jan, Dental caries K02.9 and Dental examination Z01.20 [facility] [id number] [place] [id number] Jan, Encounter for dental examination and cleaning without abnormal findings Z01.20 [facility] [place] [address] [place] [address] Jan, Bipolar disorder, current episode mixed, moderate F31.62 and Generalized anxiety disorder F41.1 [facility] [place] [address] [place] [address] Dec, [facility] [place] [id number] [place] [address] Dec, Bipolar disorder, current episode mixed, moderate F31.62 and Generalized anxiety disorder F41.1 [place] [id number] [place] [address] Dec, Other fatigue R53.83 and Orthostatic hypotension I95.1 [facility] [address] [id number] Nov, Dental examination Z01.20 [facility] [address] [place] [address] Nov, Bronchitis J40 [facility] [place] [id number] [place] [address] Oct, Generalized anxiety disorder F41.1 [place] [id number] [place] [address] Sep, Bipolar disorder, current episode mixed, moderate F31.62 and Generalized anxiety disorder F41.1 [place] [id number] [place] [address] Sep, Bipolar disorder, current episode mixed, moderate F31.62 and Generalized anxiety disorder F41.[address] [facility] [address] [place] [address] Jul, Upper respiratory tract infection, unspecified type J06.9 [place] [id number] [place] [address] Jun, Bipolar disorder, current episode mixed, moderate F31.62 and Generalized anxiety disorder F41.1 [place] [address] [place] [address] Apr, [facility] [place] [id number] [place] [address] Apr, Encounter for test, result positive Z32.01 [place] [id number] [place] [address] March, [facility] [place] [id number] [place] [address] March, Bipolar disorder, current episode mixed, moderate F31.62 and Generalized anxiety disorder F41.1 [place] [address] [place] [address] [address] March, Bipolar disorder, current episode mixed, moderate F31.62 and Generalized anxiety disorder F41.1 [facility] [place] [address] [address] March, [facility] [place] [address] [place] [address] March, [facility] [place] [id number] [place] [address] Feb, [facility] [place] [address] [place] [address] Feb, [facility] [place] [id number] [place] [address] Feb, Bipolar disorder, current episode mixed, moderate F31.62 and Generalized anxiety disorder F41.1 [facility] [place] [id number] [place] [address] Jan, Abdominal pain R10.9 [facility] [place] [address] [place] [address] Jan, [facility] [place] [address] [place] [address] Dec, Dental examination Z01.20 [facility] [place] [address] [place] [address] Dec, Dental examination Z01.20 and Dental caries K02.9 [facility] [place] [address] [place] [address] 15 Dec, 2015 Bipolar disorder, current episode mixed, moderate F31.62 and Generalized anxiety disorder F41.1 [facility] [place] [address] [address] Dec, [facility] [place] [address] [address] Nov, Bipolar disorder, current episode mixed, moderate F31.62 ; Generalized anxiety disorder F41.1 and Seizure-like activity R56.9 [facility] [place] [id number] [place] [address] Oct, [place] [address] [place] [address] [id number] [place] [address] Oct, Bipolar disorder, current episode mixed, moderate F31.62 [place] [address] [place] [id number] [place] [address] 14 Oct, 2015 Well woman exam Z01.419 [...] Tobacco use Z72.0 and Hot flashes N95.1 [facility] [place] [id number] [place] [address] 09 Oct, 2015 Seizure-like activity R56.9 and Irregular periods N92.6 [place] [address] [place] [id number] [place] [address] 07 Oct, 2015 Bipolar disorder, current episode mixed, moderate F31.62 ; Generalized anxiety disorder F41.1 and Underweight R63.6 [facility] [place] [address] [place] [address] Oct, [place] [address] [place] [id number] [place] [address] Oct, Generalized anxiety disorder F41.1 and Unspecified mood [affective] disorder F39 [facility] [address] [place] [address] Oct, Back pain M54.9 and Anxiety F41.9 [facility] [place] [id number] [place] [address] Oct, [facility] [id number] [place] [address] Sep, Arm pain, left M79.602 [facility] [place] [address] [id number] [place] [address] Sep, [facility] [address] [id number] Sep, Dental examination Z01.20 and Dental caries K02.9 [facility] [place] [address] [address] Sep, Generalized anxiety disorder F41.1 and Unspecified episodic mood disorder F39 [facility] [place] [id number] [place] [address] Sep, Bilateral low back pain without sciatica M54.5 and Seizure-like activity R56.9 [facility] [place] [id number] [place] [address] Aug, [facility] [place] [address] [address] Aug, [facility] [place] [id number] [place] [address] Aug, [facility] [place] [id number] [place] [address] Aug, Visual changes H53.9 and Bilateral low back pain without sciatica M54.5 [facility] [place] [id number] [place] [address] Jul, [facility] [place] [address] [address] Jun, Bipolar I disorder, most recent episode (or current) mixed, moderate 296.62 ; Generalized anxiety disorder 300.02 and High risk medication use V58.69 [facility] [place] [id number] [place] [address] Jun, [facility] [place] [id number] [place] [address] May, [facility] [place] [id number] [place] [address] May, Bipolar I disorder, most recent episode (or current) mixed, moderate 296.62 and Generalized anxiety disorder 300.02 [facility] [id number] [place] [id number] May, Dental examination V72.2 [facility], [place], [facility] [id number] [place] [phone] March, Bipolar I disorder, most recent episode (or current) mixed, moderate 296.62 and Generalized anxiety disorder 300.02 [facility], [place], [facility] [id number] [place] [phone] March, [facility], [place], [facility] [id number] [place] [phone] March, [facility], [place], [facility] [id number] [place] [phone] March, Underweight 783.22 ; Hand pain, right 729.5 and Reflux gastritis 535.40 [facility], [place], [facility] [id number] [place] [phone] Feb, [facility] [facility] [place] [id number] [place] [address] Feb, [facility] [place] [id number] [place] [address] Jan, [facility] [place] [id number] [place] [address] Jan, [facility] [place] [id number] [place] [address] 16 Jan, 2015 [facility] [place] [id number] [place] [address] Jan, [facility] [place] [facility] [address] [id number] [place] [address] 13 Jan, 2015 [facility] [place] [facility] [address] [id number] [place] [address] Jan, [facility] [place] [facility] [address] [id number] [place] [address] 05 Jan, 2014 [facility] [place] [facility] [address] [id number] [place] [address] 05 Jan, 2014 [facility] [place] [facility] [address] [id number] [place] [address] Jan, [facility] [place] [facility] [address] [id number] [place] [address] Jan, [facility] [place] [facility] [address] [facility] [id number] [place] [address] Jan, [facility] [place] [facility] [address] [id number] [place] [address] Jan, [facility] [place] [facility] [address] [id number] [place] [address] Dec, [facility] [place] [facility] [address] [facility] [id number] [place] [address] Dec, 2014 [facility] [place] [facility] [address] [facility] [id number] [place] [address] Dec, 2014 [facility] [place] [facility] [address] [id number] [address] Dec, 2014 [facility] [place] [facility] [address] [id number] [place] [address] 18 Dec, 2014 [facility] [place] [facility] [address] [id number] [place] [address] 17 Dec, 2014 [facility] [place] [facility] [address] [facility] [id number] [place] [address] Dec, 2014 [facility] [place] [facility] [address] [id number] [place] [address] Dec, 2014 [facility] [place] [facility] [address] [id number] [place] [address] Dec, 2014 [facility] [place] [facility] [address] [id number] [place] [address] Dec, 2014 [facility] [place] [facility] [address] [facility] [id number] [place] [address] Dec, 2014 [facility] [place] [facility] [address] [id number] [place] [address] Dec, 2014 [facility] [place] [facility] [address] [facility] [id number] [place] [address] Dec, 2014 [facility] [place] [facility] [address] [facility] [id number] [place] [address] Dec, 2014 [facility] [place] [facility] [address] [facility] [id number] [place] [address] Dec, 2014 [facility] [place] [facility] [address] [facility] [id number] [place] [address] Dec, 2014 [facility] [place] [facility] [address] [facility] [id number] [address] Dec, 2014 [facility] [place] [facility] [address] [id number] [address] Dec, 2014 [facility] [place] [facility] [address] [facility] [id number] [address] Dec, 2014 [facility] [place] [facility] [address] [facility] [id number] [address] Nov, [facility] [place] [facility] [address] [facility] [id number] [address] Nov, [facility] [place] [facility] [address] [facility] [id number] [address] Nov, [facility] [place] [facility] [address] [facility] [id number] [address] Nov, [facility] [place] [facility] [address] [id number] [place] [address] Nov, [facility] [place] [facility] [address] [id number] [place] [address] Nov, [facility] [place] [facility] [address] [id number] [place] [id number] Nov, [facility] [place] [facility] [address] [id number] [place] [address] Nov, [facility] [place] [facility] [address] [id number] [place] [address] Nov, [facility] [place] [facility] [address] [id number] [place] [id number] Nov, [facility] [place] [facility] [address] [id number] [place] [address] Nov, [facility] [place] [facility] [address] [id number] [place] [address] Nov, [facility] [place] [facility] [address] [id number] [place] [address] Oct, [facility] [place] [facility] [address] [id number] [place] [address] Oct, [facility] [place] [facility] [address] [id number] [place] [address] Oct, [facility] [place] [facility] [address] [id number] [place] [address] Oct, [facility] [place] [facility] [address] [id number] [place] [address] Oct, [facility] [place] [facility] [address] [id number] [place] [address] Oct, [facility] [place] [facility] [address] [id number] [place] [address] Oct, [facility] [place] [facility] [address] [id number] [place] [address] Oct, [facility] [place] [facility] [address] [id number] [place] [address] Oct, [facility] [place] [facility] [address] [id number] [place] [address] Oct, [facility] [place] [facility] [address] [id number] [place] [address] Oct, [facility] [place] [facility] [address] [id number] [place] [address] Oct, [facility] [place] [facility] [address] [id number] [place] [address] Sep, [facility] [place] [facility] [address] [id number] [place] [address] Sep, [facility] [place] [facility] [address] [id number] [place] [address] Sep, [facility] [place] [facility] [address] [id number] [place] [address] Sep, [facility] [place] [facility] [address] [facility] [id number] [place] [address] Sep, [facility] [place] [facility] [address] [facility] [id number] [place] [address] Sep, [facility] [place] [facility] [address] [id number] [place] [address] Sep, [facility] [place] [facility] [address] [id number] [place] [address] Sep, [facility] [place] [facility] [address] [id number] [place] [address] Aug, [facility] [place] [facility] [address] [id number] [place] [address] Aug, [facility] [place] [facility] [address] [id number] [place] [address] Aug, [facility] [place] [facility] [address] [id number] [place] [address] Aug, [facility] [place] [facility] [address] [id number] [place] [address] Aug, [facility] [place] [facility] [address] [id number] [place] [address] Aug, [facility] [place] [facility] [address] [id number] [place] [address] Aug, [facility] [place] [facility] [address] [id number] [place] [address] Aug, [facility] [place] [facility] [address] [id number] [place] [address] Aug, [facility] [place] [facility] [address] [id number] [place] [address] Aug, [facility] [place] [facility] [address] [id number] [place] [address] Aug, [facility] [place] [facility] [address] [id number] [place] [address] Aug, [facility] [place] [facility] [address] [id number] [place] [address] Aug, [facility] [place] [facility] [address] [id number] [place] [address] Jul, [facility] [place] [facility] [address] [id number] [place] [address] 22 Jul, 2014 [facility] [place] [facility] [address] [id number] [place] [address] Jul, [facility] [place] [facility] [address] [id number] [place] [address] Jul, [facility] [place] [facility] [address] [id number] [address] Jun, [facility] [place] [facility] [address] [id number] [place] [address] Jun, [facility] [place] [facility] [address] [id number] [place] [address] Jun, [facility] [place] [facility] [address] [id number] [place] [address] Jun, [facility] [place] [facility] [address] [id number] [place] [address] Jun, [facility] [place] [facility] [address] [id number] [place] [address] Jun, [facility] [place] [facility] [address] [id number] [place] [address] May, [facility] [place] [facility] [address] [id number] [place] [address] May, [facility] [place] [facility] [address] [id number] [place] [address] May, [facility] [place] [facility] [address] [id number] [place] [address] May, [facility] [place] [facility] [address] [id number] [place] [address] Apr, [facility] [place] [facility] [address] [id number] [place] [address] Apr, [facility] [place] [facility] [address] [id number] [place] [address] March, [facility] [place] [facility] [address] [id number] [place] [address] March, [facility] [place] [facility] [address] [id number] [place] [address] March, [facility] [place] [facility] [address] [id number] [place] [address] March, [facility] [place] [facility] [address] [id number] [place] [address] March, [facility] [place] [facility] [address] [id number] [place] [address] March, [facility] [place] [facility] [address] [id number] [place] [address] Feb, [facility] [place] [facility] [address] [id number] [place] [address] Feb, [facility] [place] [facility] [address] [id number] [place] [address] Dec, [facility] [place] [facility] [address] [id number] [place] [address] Dec, [facility] [place] [facility] [address] [id number] [place] [address] Nov, [facility] [place] [facility] [address] [id number] [place] [address] Nov, [facility] [place] [facility] [address] [id number] [place] [address] Sep, [facility] [place] [facility] [address] [id number] [place] [address] Sep, [facility] [place] [facility] [address] [id number] [place] [address] Sep, [facility] [place] [facility] [address] [id number] [place] [address] Sep, [facility] [place] [facility] [address] [id number] [place] [address] Sep, [facility] [place] [facility] [address] [id number] [place] [address] Sep, [facility] [place] [facility] [address] [id number] [place] [address] Sep, [facility] [place] [facility] [address] [id number] [place] [address] Aug, [facility] [place] [facility] [address] [id number] [place] [address] Aug, [facility] [place] [facility] [address] [id number] [place] [address] Aug, [facility] [place] [facility] [address] [id number] [place] [address] Aug, [facility] [place] [facility] [address] [id number] [place] [address] Aug, [facility] [place] [facility] [address] [id number] [place] [address] Aug, [facility] [place] [facility] [address] [id number] [place] [address] Jul, [facility] [place] [facility] [address] [id number] [place] [address] Jul, [facility] [place] [facility] [address] [id number] [place] [address] 16 Jul, 2013 [facility] [place] [facility] [address] [id number] [address] Jul, [facility] [place] [facility] [address] [id number] [place] [address] Jun, [facility] [place] [facility] [address] [id number] [place] [address] Jun, [facility] [place] [facility] [address] [id number] [place] [address] Jun, [facility] [place] [facility] [address] [id number] [place] [address] Jun, [facility] [place] [facility] [address] [id number] [place] [address] Jun, [facility] [place] [facility] [address] [id number] [address] Jun, [facility] [place] [facility] [address] [id number] [place] [address] Jun, [facility] [place] [facility] [address] [id number] [place] [address] 23 May, 2012 [facility] [place] [facility] [address] [id number] [place] [address] 23 May, 2012 [facility] [place] [facility] [address] [id number] [place] [address] 16 May, 2012 [facility] [place] [facility] [address] [id number] [place] [address] 15 May, 2012 [facility] [place] [facility] [address] [id number] [place] [address] 13 May, 2012 [facility] [place] [facility] [address] [id number] [place] [address] 05 May, 2013 [facility] [place] [facility] [address] [id number] [place] [address] 03 May, 2013 [facility] [place] [facility] [address] [id number] [place] [address] 28 Apr, 2013 [facility] [place] [facility] [address] [id number] [place] [address] 27 Apr, 2013 [facility] [place] [facility] [address] [id number] [place] [address] 27 Apr, 2013 [facility] [place] [facility] [address] [id number] [place] [address] 26 Apr, 2013 [facility] [place] [facility] [address] [id number] [place] [address] 20 Apr, 2013 [facility] [place] [facility] [address] [id number] [place] [address] 18 Apr, 2013 [facility] [place] [facility] [address] [id number] [place] [address] 18 Apr, 2013 [facility] [place] [facility] [address] [id number] [place] [address] 18 Apr, 2013 [facility] [place] [facility] [address] [id number] [place] [address] 17 Apr, 2013 [facility] [place] [facility] [address] [id number] [place] [address] 14 Apr, 2013 [facility] [address] [id number] [place] [address] 14 Apr, 2013 [facility] [address] [id number] [place] [address] 11 Apr, 2013 [facility] [address] [id number] [place] [address] 10 Apr, 2013 [facility] [address] [id number] [place] [address] 09 Apr, 2013 [facility] [address] [id number] [place] [address] 07 Apr, 2013 [facility] [address] [id number] [place] [address] 06 Apr, 2013 [facility] [address] [id number] [place] [address] 06 Apr, 2013 [facility] [address] [id number] [place] [address] 05 Apr, 2013 [facility] [address] [id number] [place] [address] Apr, [facility] [address] [id number] [place] [address] March, [facility] [address] [id number] [place] [address] March, [facility] [place] [facility] [address] [id number] [place] [address] March, [facility] [place] [facility] [address] [id number] [place] [address] March, [facility] [place] [facility] [address] [id number] [place] [address] March, [facility] [place] [facility] [address] [id number] [place] [address] March, [facility] [address] [id number] [place] [address] March, [facility] [place] [facility] [address] [id number] [place] [address] Feb, [facility] [address] [id number] [place] [address] Feb, [facility] [place] [facility] [address] [id number] [place] [address] 27 Jan, 2013 [facility] [address] [id number] [place] [address] 18 Jan, 2013 [facility] [place] [facility] [address] [id number] [place] [address] 15 Jan, 2013 [facility] [address] [id number] [place] [address] 14 Jan, 2013 [facility] [place] [facility] [address] [id number] [place] [address] 13 Jan, 2013 [facility] [place] [facility] [address] [id number] [place] [address] 12 Jan, 2013 [facility] [place] [facility] [address] [id number] [place] [address] 11 Jan, 2013 [facility] [place] [facility] [address] [id number] [place] [address] 09 Jan, 2013 [facility] [place] [facility] [address] [id number] [place] [address] 08 Jan, 2013 [facility] [place] [facility] [address] [id number] [place] [address] 07 Jan, 2013 [facility] [place] [facility] [address] [id number] [place] [address] 06 Jan, 2013 [facility] [place] [facility] [address] [id number] [place] [address] 17 Nov, 2012 [facility] [place] [facility] [address] [id number] [place] [address] Oct, [facility] [place] [facility] [address] [id number] [place] [address] Oct, [facility] [place] [facility] [address] [id number] [place] [address] Oct, [facility] [place] [facility] [address] [id number] [place] [address] Oct, [facility] [place] [facility] [address] [id number] [place] [address] Sep, [facility] [place] [facility] [address] [id number] [place] [address] 30 Sep, 2012 [facility] [place] [facility] [address] [id number] [place] [address] Sep, [facility] [place] [facility] [address] [id number] [place] [address] Sep, [facility] [place] [facility] [address] [id number] [place] [address] Sep, [facility] [place] [facility] [address] [id number] [place] [address] Sep, [facility] [place] [facility] [address] [id number] [place] [address] 16 Sep, 2012 [facility] [place] [facility] [address] [id number] [place] [address] Sep, [facility] [place] [facility] [address] [id number] [place] [address] Sep, [facility] [place] [facility] [address] [id number] [place] [address] Sep, [facility] [place] [facility] [address] [id number] [place] [address] Sep, [facility] [place] [facility] [address] [id number] [place] [address] Aug, [facility] [place] [facility] [address] [id number] [place] [address] Aug, [facility] [place] [facility] [address] [id number] [place] [address] Aug, [facility] [place] [facility] [address] [id number] [place] [address] 28 Jul, 2012 [facility] [place] [facility] [address] [id number] [place] [address] 25 Jul, 2012 [facility] [place] [facility] [address] [id number] [place] [address] 19 Jul, 2012 [facility] [place] [facility] [address] [id number] [place] [address] 17 Jul, 2012 [facility] [place] [facility] [address] [id number] [place] [address] 20 Jun, 2012 [facility] [place] [facility] [address] [id number] [place] [address] 16 Jun, 2012 [facility] [place] [facility] [address] [id number] [place] [address] 15 Jun, 2012 [facility] [place] [facility] [address] [id number] [place] [address] Jun, [facility] [place] [facility] [address] [id number] [place] [address] Jun, [facility] [place] [facility] [address] [id number] [place] [address] March, [facility] [place] [facility] [address] [id number] [place] [address] Feb, [facility] [place] [facility] [address] [id number] [place] [address] Jan, [facility] [place] [facility] [address] [id number] [place] [address] Jan, [facility] [place] [facility] [address] [id number] [place] [address] 22 Jan, 2012 [facility] [address] [id number] [place] [address] 14 Jan, 2012 [facility] [place] [facility] [address] [id number] [place] [address] 14 Jan, 2012 [facility] [address] [id number] [place] [address] 14 Jan, 2012 [facility] [place] [facility] [address] [id number] [place] [address] 28 Dec, 2011 [facility] [place] [facility] [address] [id number] [place] [address] 27 Dec, 2011 [facility] [place] [facility] [address] [id number] [place] [address] 23 Dec, 2011 [facility] [place] [facility] [address] [id number] [place] [address] 21 Dec, 2011 [facility] [place] [facility] [address] [id number] [place] [address] 20 Dec, 2011 [facility] [place] [facility] [address] [id number] [place] [address] 19 Dec, 2011 [facility] [address] [id number] [place] [address] 17 Dec, 2011 [facility] [place] [facility] [address] [id number] [place] [address] 16 Dec, 2011 [facility] [place] [facility] [address] [id number] [place] [address] 31 Nov, 2011 [facility] [place] [facility] [address] [id number] [place] [address] Oct, [facility] [place] [facility] [address] [id number] [place] [address] 18 Sep, 2011 [facility] [place] [facility] [address] [id number] [place] [address] Sep, [facility] [place] [address] [facility] [id number] [place] [address] Sep, [facility] [place] [address] [id number] [place] [address] Sep, [facility] [place] [address] [facility] [id number] [place] [address] Sep, [facility] [place] [address] [id number] [place] [address] Sep, [facility] [place] [address] [facility] [id number] [place] [address] Jan, [facility] [place] [address] [facility] [id number] [place] [address] Apr, IMMUNIZATIONS No Known Immunizations SOCIAL HISTORY Never Assessed REASON FOR VISIT PLAN OF CARE VITAL SIGNS MEDICATIONS Unknown Medications RESULTS No Results PROCEDURES Procedure Date Ordered Result Body Site PSYTX PT&/FAMILY 45 MINUTES Nov 26, 2014 INSTRUCTIONS MEDICATIONS ADMINISTERED No Known Medications MEDICAL [...]
--- OUTSIDE RECORDS SUMMARY | 2019-05-27 20:47 | XMS REPORT ---
Author Author Migration, Doctor Organization [facility] Address Unknown Phone Unavailable Care Team Providers Care Remediation Technician Name Role Phone Migration, Doctor Unavailable Unavailable PROBLEMS Type Condition ICD9-CM Code ZCS19-SR Code Onset Dates Condition Status SNOMED Code Problem Generalized anxiety disorder F41.1 Active 58608226 Problem Bipolar disorder, current episode mixed, moderate F31.62 Active 986574182 Problem Acute non intractable tension-type headache G44.209 Active 264805869 Problem Constipation K59.00 Active 97180424 Problem Post traumatic stress disorder F43.10 Active 69080126 Problem Borderline personality disorder F60.3 Active 57639643 Problem Endometriosis N80.9 Active 642667037 Problem Acute right-sided low back pain with right-sided sciatica M54.41 Active 565173697 ALLERGIES Substance Reaction Event Type Date Status Diclofenac Sodium 75 Mg Tablet, Delayed Release (e Unknown Non Drug Allergy Feb, Active Thioridazine 25 Mg Tablet tachycardia Non Drug Allergy Feb, Active Depakote 250 Mg Tablet,delayed Release (dr/ec) Unknown Non Drug Allergy Feb, Active ENCOUNTERS Encounter Location Date Diagnosis [place] [id number] [place] [address] Jun, [place] [id number] [place] [address] Apr, Bipolar disorder, current episode mixed, moderate F31.62 [place] [id number] [place] [address] Apr, Bipolar disorder, current episode mixed, moderate F31.62 ; Post traumatic stress disorder F43.10 and Borderline personality disorder F60.3 [place] [id number] [place] [address] March, Bipolar disorder, current episode mixed, moderate F31.62 [place] [address] [place] [id number] [place] [address] March, Bipolar disorder, current episode mixed, moderate F31.62 [facility] [address] [id number] [place] [address] March, Bronchitis J40 [facility] [id number] [place] [address] Feb, Bipolar disorder, current episode mixed, moderate F31.62 ; Post traumatic stress disorder F43.10 ; Borderline personality disorder F60.3 and Other residential (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 Z79.899 [facility] [address] [id number] [place] [address] Feb, Pelvic floor dysfunction M62.89 [facility] [address] [id number] [place] [address] Feb, Bipolar disorder, current episode mixed, moderate F31.62 [facility] [address] [address] [id number] [place] [address] Jan, Dehydration E86.0 and Back muscle spasm M62.830 [place] [address] [place] [id number] [place] [address] Jan, Bipolar disorder, current episode mixed, moderate F31.62 ; Post traumatic stress disorder F43.10 ; Borderline personality disorder F60.3 and Other residential (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 Z79.899 [facility] [address] [address] [id number] [place] [address] Jan, Cough R05 and Viral upper respiratory tract infection J06.9 [facility] [address] [place] [id number] [place] [address] Jan, Bipolar disorder, current episode mixed, moderate F31.62 [facility] [id number] [place] [address] Dec, Bipolar disorder, current episode mixed, moderate F31.62 [place] [address] [address] Nov, Bipolar disorder, current episode mixed, moderate F31.62 [facility] [address] [address] [id number] [place] [address] Oct, Sore throat J02.9 [facility] [address] [place] [id number] [place] [address] Oct, Abdominal pain R10.9 ; Low back pain M54.5 ; Left shoulder pain M25.512 and Constipation K59.00 [place] [address] [place] [id number] [place] [address] Oct, Bipolar disorder, current episode mixed, moderate F31.62 ; Post traumatic stress disorder F43.10 and Borderline personality disorder F60.3 [place] [address] [place] [id number] [place] [address] Sep, Bipolar disorder, current episode mixed, moderate F31.62 [place] [address] [address] 08 Aug, 2018 Bipolar disorder, current episode mixed, moderate F31.62 [place] [address] [address] 25 Jul, 2018 Thrombophlebitis I80.9 and Pelvic pain R10.2 [place] [address] [place] [id number] [place] [address] 05 Jul, 2018 Bipolar disorder, current episode mixed, moderate F31.62 ; Post traumatic stress disorder F43.10 and Borderline personality disorder F60.3 [place] [address] [place] [id number] [place] [address] Jun, Bipolar disorder, current episode mixed, moderate F31.62 [place] [address] [place] [id number] [place] [address] May, Palpitations R00.2 [place] [address] [place] [id number] [place] [address] May, Palpitations R00.2 [facility] [id number] [place] [address] 12 May, 2018 Palpitations R00.2 and Frequent bowel movements R19.4 [facility] [address] [place] [id number] [place] [address] 05 May, 2018 Bipolar disorder, current episode mixed, moderate F31.62 ; Post traumatic stress disorder F43.10 and Borderline personality disorder F60.3 [facility] [address] [place] [id number] [place] [id number] 15 Apr, 2018 Dental examination Z01.20 [facility] [address] [address] 15 Apr, 2018 [facility] [address] [place] [id number] [place] [address] 15 Apr, 2018 Tooth pain K08.89 [facility] [address] [address] 15 Apr, 2018 Dental examination Z01.20 [facility] [address] [place] [id number] [place] [address] 06 Apr, 2018 Bipolar disorder, current episode mixed, moderate F31.62 ; Post traumatic stress disorder F43.10 and Borderline personality disorder F60.3 [facility] [address] [place] [id number] [place] [address] March, Abdominal pain R10.9 ; UTI symptoms R39.9 and Other microscopic hematuria R31.29 [facility] [address] [place] [id number] [place] [address] March, [facility] [address] [address] March, Bipolar disorder, current episode mixed, moderate F31.62 ; Post traumatic stress disorder F43.10 and Borderline personality disorder F60.3 [facility] [address] [place] [id number] [place] [address] Feb, Encounter for immunization Z23 [facility] [address] [place] [id number] [place] [address] 16 Feb, 2018 Bipolar disorder, current episode mixed, moderate F31.62 ; Post traumatic stress disorder F43.10 and Borderline personality disorder F60.3 [place] [address] [place] [id number] [place] [address] 11 Feb, 2018 Bipolar disorder, current episode mixed, moderate F31.62 ; Post traumatic stress disorder F43.10 ; Borderline personality disorder F60.3 and Other long term care phlebotomist (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 Z79.899 [place] [address] [address] 30 Jan, 2018 Encounter for immunization Z23 [place] [address] [address] 30 Jan, 2018 [place] [address] [address] Jan, Bipolar disorder, current episode mixed, moderate F31.62 [facility] [address] [place] [id number] [place] [address] Jan, Lumbar back pain M54.5 [place] [address] [address] 28 Dec, 2017 Low back pain M54.5 [place] [address] [address] 13 Dec, 2017 Bipolar disorder, current episode mixed, moderate F31.62 [facility] [address] [place] [id number] [place] [address] Dec, Generalized anxiety disorder F41.1 and Bipolar disorder, current episode mixed, moderate F31.62 [facility] [address] [place] [id number] [place] [address] Nov, Acute non intractable tension-type headache G44.209 [place] [address] [address] Nov, Bipolar disorder, current episode mixed, moderate F31.62 ; Post traumatic stress disorder F43.10 and Borderline personality disorder F60.3 [place] [address] [place] [id number] [place] [address] Nov, Bipolar disorder, current episode mixed, moderate F31.62 [facility] [address] [place] [id number] [place] [address] Nov, Abdominal pain R10.9 ; History of PCOS Z87.42 ; History of endometriosis Z87.42 and Pelvic pain R10.2 [place] [address] [place] [id number] [place] [address] Nov, [facility] [place] [address] [place] [id number] [place] [address] Oct, History of PCOS Z87.42 ; History of endometriosis Z87.42 and Pain R52 [place] [address] [address] Oct, Bipolar disorder, current episode mixed, moderate F31.62 ; Post traumatic stress disorder F43.10 and Borderline personality disorder F60.3 [place] [address] [place] [id number] [place] [address] Oct, Bipolar disorder, current episode mixed, moderate F31.62 [place] [address] [place] [id number] [place] [address] Sep, Bipolar disorder, current episode mixed, moderate F31.62 ; Post traumatic stress disorder F43.10 ; Borderline personality disorder F60.3 and Other residential (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 Z79.899 [place] [address] [place] [id number] [place] [address] Sep, Bipolar disorder, current episode mixed, moderate F31.62 [facility] [address] [place] [id number] [place] [address] Sep, Endometriosis N80.9 and Acute right-sided low back pain with right- sided sciatica M54.41 [facility] [id number] [place] [address] Aug, [facility] [address] [place] [id number] [place] [address] Aug, Bipolar disorder, current episode mixed, moderate F31.62 ; Post traumatic stress disorder F43.10 and Borderline personality disorder F60.3 [place] [address] [place] [id number] [place] [address] 11 Aug, 2017 Bipolar disorder, current episode mixed, moderate F31.62 ; Post traumatic stress disorder F43.10 and Borderline personality disorder F60.3 [place] [address] [place] [id number] [place] [address] 13 Jul, 2017 Bipolar disorder, current episode mixed, moderate F31.62 ; Post traumatic stress disorder F43.10 and Borderline personality disorder F60.3 [facility] [address] [place] [id number] [place] [address] 11 Jul, 2017 Pharyngitis, unspecified etiology J02.9 and Streptococcal pharyngitis J02.0 [place] [address] [place] [id number] [place] [address] 16 Jun, 2017 Bipolar disorder, current episode mixed, moderate F31.62 ; Post traumatic stress disorder F43.10 and Borderline personality disorder F60.3 [place] [id number] [place] [address] May, [place] [address] [place] [id number] [place] [address] May, [facility] [address] [place] [id number] [place] [address] May, Bipolar disorder, current episode mixed, moderate F31.62 and Generalized anxiety disorder F41.1 [place] [address] [place] [address] March, Bipolar disorder, current episode mixed, moderate F31.62 and Generalized anxiety disorder F41.1 [facility] [address] [place] [address] March, Pelvic pain R10.2 [facility] [address] [place] [id number] [place] [phone] March, [facility] [address] [place] [id number] [place] [address] Feb, Bipolar disorder, current episode mixed, moderate F31.62 and Generalized anxiety disorder F41.1 [facility] [address] [place] [id number] [place] [address] Jan, [facility] [address] [place] [id number] [place] [address] Jan, Bipolar disorder, current episode mixed, moderate F31.62 [facility] [address] [place] [id number] [place] [address] Jan, Bipolar disorder, current episode mixed, moderate F31.62 [facility] [address] [place] [id number] [place] [address] Jan, Bilateral low back pain without sciatica M54.5 [facility] [address] [place] [id number] [place] [address] [id number] Jan, Dental caries K02.9 and Dental examination Z01.20 [facility] [address] [place] [id number] [place] [address] [id number] Jan, Encounter for dental examination and cleaning without abnormal findings Z01.20 [facility] [address] [place] [address] Jan, Bipolar disorder, current episode mixed, moderate F31.62 and Generalized anxiety disorder F41.1 [facility] [address] [place] [id number] [place] [address] Dec, [facility] [address] [place] [id number] [place] [address] Dec, Bipolar disorder, current episode mixed, moderate F31.62 and Generalized anxiety disorder F41.1 [facility] [address] [place] [address] 03 Dec, 2016 Other fatigue R53.83 and Orthostatic hypotension I95.1 [facility] [address] [id number] Nov, Dental examination Z01.20 [facility] [address] [address] Nov, Bronchitis J40 [facility] [address] [address] Oct, Generalized anxiety disorder F41.1 [place] [address] [place] [id number] [place] [address] Sep, Bipolar disorder, current episode mixed, moderate F31.62 and Generalized anxiety disorder F41.1 [facility] [address] [place] [id number] [place] [address] Sep, Bipolar disorder, current episode mixed, moderate F31.62 and Generalized anxiety disorder F41.1 [facility] [address] [place] [id number] [place] [address] 08 Jul, 2016 Upper respiratory tract infection, unspecified type J06.9 [facility] [address] [place] [id number] [place] [address] Jun, Bipolar disorder, current episode mixed, moderate F31.62 and Generalized anxiety disorder F41.1 [facility] [address] [place] [id number] [place] [address] Apr, [place] [address] [address] Apr, Encounter for test, result positive Z32.01 [facility] [address] [place] [id number] [place] [address] March, [facility] [address] [place] [id number] [place] [address] March, Bipolar disorder, current episode mixed, moderate F31.62 and Generalized anxiety disorder F41.1 [facility] [address] [place] [id number] [place] [address] March, Bipolar disorder, current episode mixed, moderate F31.62 and Generalized anxiety disorder F41.1 [facility] [address] [place] [id number] [place] [address] March, [facility] [id number] [place] [address] March, [facility] [address] [id number] [place] [address] Feb, [facility] [address] [place] [id number] [place] [address] Feb, [facility] [address] [place] [id number] [place] [address] Feb, Bipolar disorder, current episode mixed, moderate F31.62 and Generalized anxiety disorder F41.1 [facility] [address] [id number] [place] [address] Jan, Abdominal pain R10.9 [facility] [address] [place] [id number] [place] [address] 14 Jan, 2016 [facility] [address] [id number] [place] [address] Dec, Dental examination Z01.20 [facility] [address] [id number] [place] [address] Dec, Dental examination Z01.20 and Dental caries K02.9 [facility] [address] [id number] [place] [address] 15 Dec, 2015 Bipolar disorder, current episode mixed, moderate F31.62 and Generalized anxiety disorder F41.1 [facility] [id number] [place] [address] Dec, [facility] [address] [place] [address] Nov, Bipolar disorder, current episode mixed, moderate F31.62 ; Generalized anxiety disorder F41.1 and Seizure-like activity R56.9 [place] [address] [place] [id number] [place] [address] Oct, [place] [address] [address] Oct, Bipolar disorder, current episode mixed, moderate F31.62 [place] [address] [address] Oct, Well woman exam Z01.419 ; Encounter [...] Tobacco use Z72.0 and Hot flashes N95.1 [place] [address] [place] [id number] [place] [address] Oct, Seizure-like activity R56.9 and Irregular periods N92.6 [place] [address] [place] [id number] [place] [address] Oct, Bipolar disorder, current episode mixed, moderate F31.62 ; Generalized anxiety disorder F41.1 and Underweight R63.6 [place] [address] [address] Oct, [place] [address] [place] [id number] [place] [address] Oct, Generalized anxiety disorder F41.1 and Unspecified mood [affective] disorder F39 [facility] [address] [place] [address] Oct, Back pain M54.9 and Anxiety F41.9 [facility] [address] [address] Oct, [facility] [id number] [place] [address] Sep, Arm pain, left M79.602 [facility] [address] [address] Sep, [facility] [address] [id number] Sep, Dental examination Z01.20 and Dental caries K02.9 [facility] [id number] [place] [address] Sep, Generalized anxiety disorder F41.1 and Unspecified episodic mood disorder F39 [facility] [address] [address] Sep, Bilateral low back pain without sciatica M54.5 and Seizure-like activity R56.9 [facility] [address] [address] Aug, [facility] [id number] [place] [address] Aug, [facility] [address] [address] Aug, [facility] [id number] [place] [address] Aug, Visual changes H53.9 and Bilateral low back pain without sciatica M54.5 [facility] [id number] [place] [address] Jul, [facility] [address] [address] Jun, Bipolar I disorder, most recent episode (or current) mixed, moderate 296.62 ; Generalized anxiety disorder 300.02 and High risk medication use V58.69 [facility] [address] [place] [address] Jun, [facility] [id number] [place] [address] May, [facility] [id number] [place] [address] May, Bipolar I disorder, most recent episode (or current) mixed, moderate 296.62 and Generalized anxiety disorder 300.02 [facility] [address] [place] [id number] May, Dental examination V72.2 [facility] [id number] [place] [address] March, Bipolar I disorder, most recent episode (or current) mixed, moderate 296.62 and Generalized anxiety disorder 300.02 [facility] [id number] [place] [address] March, [facility] [id number] [place] [address] March, [facility] [id number] [place] [address] March, Underweight 783.22 ; Hand pain, right 729.5 and Reflux gastritis 535.40 [facility] [id number] [place] [address] Feb, [facility] [id number] [place] [address] Feb, [facility] [id number] [place] [address] Jan, [facility] [id number] [place] [address] Jan, [facility] [id number] [place] [address] 16 Jan, 2015 [facility] [place] [facility] [address] [id number] [place] [address] 16 Jan, 2015 [facility] [place] [facility] [address] [id number] [place] [address] Jan, [facility] [place] [facility] [address] [facility] [id number] [place] [address] Jan, [facility] [place] [facility] [address] [id number] [place] [address] 05 Jan, 2015 [facility] [place] [facility] [address] [id number] [place] [address] 05 Jan, 2015 [facility] [place] [facility] [address] [facility] [id number] [place] [address] Jan, [facility] [place] [facility] [address] [facility] [id number] [place] [address] Jan, [facility] [place] [facility] [address] [facility] [id number] [place] [address] Jan, [facility] [place] [facility] [address] [facility] [address] [id number] [place] [address] Jan, [facility] [place] [facility] [address] [facility] [address] [id number] [place] [address] Dec, [facility] [place] [facility] [address] [facility] [address] [id number] [address] Dec, 2014 [facility] [place] [facility] [address] [facility] [address] [id number], [place] [address] Dec, 2014 [facility] [place] [facility] [address] [id number] [place] [address] Dec, 2014 [facility] [place] [facility] [address] [facility] [id number] [place] [address] 18 Dec, 2014 [facility] [place] [facility] [address] [facility] [id number] [place] [address] 17 Dec, 2014 [facility] [place] [facility] [address] [id number] [place] [address] 17 Dec, 2014 [facility] [place] [facility] [address] [id number] [place] [address] Dec, 2014 [facility] [place] [facility] [address] [id number] [place] [address] Dec, 2014 [facility] [place] [facility] [address] [id number] [place] [address] Dec, 2014 [facility] [place] [facility] [address] [id number] [place] [address] Dec, 2014 [facility] [place] [facility] [address] [id number] [place] [address] Dec, 2014 [facility] [place] [facility] [address] [facility] [id number] [place] [address] Dec, 2014 [facility] [place] [facility] [address] [id number] [place] [address] Dec, 2014 [facility] [place] [facility] [address] [facility] [id number] [place] [address] Dec, 2014 [facility] [place] [facility] [address] [facility] [id number] [place] [address] Dec, 2014 [facility] [place] [facility] [address] [facility] [id number], [place] [address] Dec, 2014 [facility] [place] [facility] [address] [id number], [place] [address] Dec, 2014 [facility] [place] [facility] [address] [facility] [address] [id number] [place] [address] Dec, 2014 [facility] [place] [facility] [address] [id number] [place] [address] Nov, [facility] [place] [facility] [address] [facility] [id number] [place] [address] Nov, [facility] [place] [facility] [address] [id number] [place] [address] Nov, [facility] [place] [facility] [address] [id number] [place] [address] Nov, [facility] [place] [facility] [address] [id number] [place] [address] Nov, [facility] [place] [facility] [address] [id number] [place] [address] Nov, [facility] [place] [facility] [address] [facility] [id number] [place] [id number] Nov, [facility] [place] [facility] [address] [id number] [place] [address] Nov, [facility] [place] [facility] [address] [id number] [place] [address] Nov, [facility] [place] [facility] [id number] [address] [id number] Nov, [facility] [place] [facility] [address] [id number] [place] [address] Nov, [facility] [place] [facility] [address] [id number] [place] [address] Nov, [facility] [place] [facility] [address] [id number] [place] [address] Oct, [facility] [place] [facility] [address] [id number] [place] [address] Oct, [facility] [place] [facility] [address] [id number] [place] [address] Oct, [facility] [place] [facility] [address] [id number] [place] [address] Oct, [facility] [place] [facility] [address] [id number] [place] [address] Oct, [facility] [place] [facility] [address] [id number] [place] [address] Oct, [facility] [place] [facility] [address] [id number] [place] [address] Oct, [facility] [place] [facility] [address] [id number] [place] [address] Oct, [facility] [place] [facility] [address] [id number] [place] [address] Oct, [facility] [place] [facility] [address] [id number] [place] [address] Oct, [facility] [place] [facility] [address] [id number] [place] [address] Oct, [facility] [place] [facility] [address] [id number] [place] [address] Oct, [facility] [place] [facility] [address] [id number] [place] [address] Sep, [facility] [place] [facility] [address] [id number] [place] [address] Sep, [facility] [place] [facility] [address] [id number] [place] [address] Sep, [facility] [place] [facility] [address] [id number] [place] [address] Sep, [facility] [place] [facility] [address] [id number] [place] [address] Sep, [facility] [place] [facility] [address] [id number] [place] [address] Sep, [facility] [place] [facility] [address] [id number] [place] [address] Sep, [facility] [place] [facility] [address] [id number] [place] [address] Sep, [facility] [place] [facility] [address] [id number] [place] [address] Aug, [facility] [place] [facility] [address] [id number] [place] [address] Aug, [facility] [place] [facility] [address] [id number] [place] [address] Aug, [facility] [place] [facility] [address] [id number] [place] [address] Aug, [facility] [place] [facility] [address] [id number] [place] [address] Aug, [facility] [place] [facility] [address] [id number] [place] [address] Aug, [facility] [place] [facility] [address] [id number] [place] [address] Aug, [facility] [place] [facility] [address] [id number] [place] [address] Aug, [facility] [place] [facility] [address] [id number] [place] [address] Aug, [facility] [place] [facility] [address] [id number], [place] [address] Aug, [facility] [place] [facility] [address] [id number] [place] [address] Aug, [facility] [place] [facility] [address] [id number], [place] [address] Aug, [facility] [place] [facility] [address] [id number], [place] [address] Aug, [facility] [place] [facility] [address] [id number], [place] [address] Jul, 2013 [facility] [place] [facility] [address] [id number] [place] [address] 22 Jul, 2014 [facility] [place] [facility] [address] [id number], [place] [address] 19 Jul, 2013 [facility] [place] [facility] [address] [id number], [place] [address] 19 Jul, 2013 [facility] [place] [facility] [address] [id number] [place] [address] Jun, [facility] [place] [facility] [address] [id number] [place] [address] Jun, [facility] [place] [facility] [address] [id number] [place] [address] Jun, [facility] [place] [facility] [address] [id number] [place] [address] Jun, [facility] [place] [facility] [address] [id number] [place] [address] Jun, [facility] [place] [facility] [address] [id number] [place] [address] Jun, [facility] [place] [facility] [address] [id number] [place] [address] May, [facility] [place] [facility] [address] [id number] [place] [address] May, [facility] [place] [facility] [address] [id number] [place] [address] May, [facility] [place] [facility] [address] [id number] [place] [address] May, [facility] [place] [facility] [address] [id number] [place] [address] Apr, [facility] [place] [facility] [address] [id number] [place] [address] Apr, [facility] [place] [facility] [address] [id number] [place] [address] March, [facility] [place] [facility] [address] [id number] [place] [address] March, [facility] [place] [facility] [address] [id number] [place] [address] March, [facility] [place] [facility] [address] [id number] [place] [address] March, [facility] [place] [facility] [address] [id number] [place] [address] March, [facility] [place] [facility] [address] [id number] [place] [address] March, [facility] [place] [facility] [address] [id number] [place] [address] Feb, [facility] [place] [facility] [address] [id number] [place] [address] Feb, [facility] [place] [facility] [address] [id number] [place] [address] Dec, [facility] [place] [facility] [address] [id number] [place] [address] Dec, [facility] [place] [facility] [address] [id number] [place] [address] Nov, [facility] [place] [facility] [address] [id number] [place] [address] Nov, [facility] [place] [facility] [address] [id number] [place] [address] Sep, [facility] [place] [facility] [address] [id number] [place] [address] Sep, [facility] [place] [facility] [address] [id number] [place] [address] Sep, [facility] [place] [facility] [address] [id number], [place] [address] Sep, [facility] [place] [facility] [address] [id number] [place] [address] Sep, [facility] [place] [facility] [address] [id number] [place] [address] Sep, [facility] [place] [facility] [address] [id number], [place] [address] Sep, [facility] [place] [facility] [address] [id number], [place] [address] Aug, [facility] [place] [facility] [address] [id number] [place] [address] Aug, [facility] [place] [facility] [address] [id number] [place] [address] Aug, [facility] [place] [facility] [address] [id number] [place] [address] Aug, [facility] [place] [facility] [address] [id number] [place] [address] Aug, [facility] [place] [facility] [address] [id number] [place] [address] Aug, [facility] [place] [facility] [address] [id number] [place] [address] Jul, [facility] [place] [facility] [address] [id number] [place] [address] Jul, [facility] [place] [facility] [address] [id number] [place] [address] 16 Jul, 2013 [facility] [place] [facility] [address] [id number] [place] [address] Jul, [facility] [place] [facility] [address] [id number] [place] [address] Jun, [facility] [place] [facility] [address] [id number] [place] [address] Jun, [facility] [place] [facility] [address] [id number] [place] [address] Jun, [facility] [place] [facility] [address] [id number] [place] [address] Jun, [facility] [place] [facility] [address] [id number] [place] [address] Jun, [facility] [place] [facility] [address] [id number] [place] [address] Jun, [facility] [place] [facility] [address] [id number] [place] [address] 05 Jun, 2013 [facility] [place] [facility] [address] [id number] [place] [address] May, [facility] [place] [facility] [address] [id number] [place] [address] May, [facility] [place] [facility] [address] [id number] [place] [address] 16 May, 2013 [facility] [place] [facility] [address] [id number] [place] [address] 15 May, 2013 [facility] [place] [facility] [address] [id number] [place] [address] May, [facility] [place] [facility] [address] [id number] [place] [address] May, [facility] [place] [facility] [address] [id number] [place] [address] May, [facility] [place] [facility] [address] [id number] [place] [address] Apr, [facility] [place] [facility] [address] [id number] [place] [address] Apr, [facility] [place] [facility] [address] [id number] [place] [address] Apr, [facility] [place] [facility] [address] [id number] [place] [address] Apr, [facility] [place] [facility] [address] [id number] [place] [address] Apr, [facility] [place] [facility] [address] [id number] [place] [address] Apr, [facility] [place] [facility] [address] [id number] [place] [address] Apr, [facility] [place] [facility] [address] [id number] [place] [address] 18 Apr, 2013 [facility] [place] [facility] [address] [id number] [place] [address] 17 Apr, 2013 [facility] [place] [facility] [address] [id number] [place] [address] 14 Apr, 2013 [facility] [place] [facility] [address] [id number] [place] [address] 14 Apr, 2013 [facility] [place] [facility] [address] [id number] [place] [address] 11 Apr, 2013 [facility] [place] [facility] [address] [id number] [place] [address] 10 Apr, 2013 [facility] [place] [facility] [address] [id number] [place] [address] 09 Apr, 2013 [facility] [place] [facility] [address] [id number] [place] [address] 07 Apr, 2013 [facility] [place] [facility] [address] [id number] [place] [address] 06 Apr, 2013 [facility] [place] [facility] [address] [id number] [place] [address] 06 Apr, 2013 [facility] [place] [facility] [address] [id number] [place] [address] 05 Apr, 2013 [facility] [place] [facility] [address] [id number] [place] [address] Apr, [facility] [place] [facility] [address] [id number], [place] [address] March, [facility] [place] [facility] [address] [id number] [place] [address] March, [facility] [place] [facility] [address] [id number] [place] [address] March, [facility] [place] [facility] [address] [id number] [place] [address] March, [facility] [place] [facility] [address] [id number] [place] [address] 13 Mar, 2013 [facility] [address] [id number] [place] [address] March, [facility] [address] [id number] [place] [address] March, [facility] [address] [id number] [place] [address] Feb, [facility] [address] [id number] [place] [address] Feb, [facility] [address] [id number] [place] [address] 27 Jan, 2013 [facility] [address] [id number] [place] [address] 18 Jan, 2013 [facility] [address] [id number] [place] [address] 15 Jan, 2013 [facility] [address] [id number] [place] [address] 14 Jan, 2013 [facility] [address] [id number] [place] [address] 13 Jan, 2013 [facility] [address] [id number] [place] [address] 12 Jan, 2013 [facility] [address] [id number] [place] [address] 11 Jan, 2013 [facility] [address] [id number] [place] [address] 09 Jan, 2013 [facility] [address] [id number] [place] [address] 08 Jan, 2013 [facility] [address] [id number] [place] [address] 07 Jan, 2013 [facility] [address] [id number] [place] [address] 06 Jan, 2013 [facility] [place] [facility] [address] [id number] [place] [address] Nov, [facility] [place] [facility] [address] [id number] [place] [address] Oct, [facility] [place] [facility] [address] [id number] [place] [address] Oct, [facility] [place] [facility] [address] [id number] [place] [address] Oct, [facility] [place] [facility] [address] [id number] [place] [address] Oct, [facility] [place] [facility] [address] [id number] [place] [address] Sep, [facility] [place] [facility] [address] [id number] [place] [address] Sep, [facility] [place] [facility] [address] [id number] [place] [address] Sep, [facility] [place] [facility] [address] [id number] [place] [address] Sep, [facility] [place] [facility] [address] [id number] [place] [address] Sep, [facility] [place] [facility] [address] [id number] [place] [address] Sep, [facility] [place] [facility] [address] [id number] [place] [address] Sep, [facility] [place] [facility] [address] [id number] [place] [address] Sep, [facility] [place] [facility] [address] [id number] [place] [address] Sep, [facility] [place] [facility] [address] [id number] [place] [address] Sep, [facility] [place] [facility] [address] [id number] [place] [address] Sep, [facility] [place] [facility] [address] [id number] [place] [address] Aug, [facility] [place] [facility] [address] [id number] [place] [address] Aug, [facility] [place] [facility] [address] [id number] [place] [address] Aug, [facility] [place] [facility] [address] [id number] [place] [address] 28 Jul, 2012 [facility] [place] [facility] [address] [id number] [place] [address] 25 Jul, 2012 [facility] [place] [facility] [address] [id number] [place] [address] 19 Jul, 2012 [facility] [place] [facility] [address] [id number] [place] [address] 17 Jul, 2012 [facility] [place] [facility] [address] [id number] [place] [address] 20 Jun, 2012 [facility] [place] [facility] [address] [id number] [place] [address] 16 Jun, 2012 [facility] [place] [facility] [address] [id number] [place] [address] 15 Jun, 2012 [facility] [place] [facility] [address] [id number] [place] [address] 15 Jun, 2012 [facility] [place] [facility] [address] [id number] [place] [address] Jun, [facility] [place] [facility] [address] [id number] [place] [address] March, [facility] [place] [facility] [address] [id number] [place] [address] Feb, [facility] [place] [facility] [address] [id number] [place] [address] Jan, [facility] [place] [facility] [address] [id number] [place] [address] 27 Jan, 2012 [facility] [place] [facility] [address] [id number] [place] [address] 22 Jan, 2012 [facility] [place] [facility] [address] [id number] [place] [address] 14 Jan, 2012 [facility] [place] [facility] [address] [id number] [place] [address] 14 Jan, 2012 [facility] [place] [facility] [address] [id number] [place] [address] 14 Jan, 2012 [facility] [place] [facility] [address] [id number] [place] [address] 28 Dec, 2011 [facility] [place] [facility] [address] [id number] [place] [address] 27 Dec, 2011 [facility] [place] [facility] [address] [id number] [place] [address] 23 Dec, 2011 [facility] [place] [facility] [address] [id number] [place] [address] 21 Dec, 2011 [facility] [place] [facility] [address] [id number] [place] [address] 20 Dec, 2011 [facility] [place] [facility] [address] [facility] [id number] [place] [address] 19 Dec, 2011 [facility] [place] [facility] [address] [id number] [place] [address] 17 Dec, 2011 [facility] [place] [facility] [address] [id number] [place] [address] 16 Dec, 2011 [facility] [place] [facility] [address] [id number] [place] [address] 31 Nov, 2011 [facility] [place] [facility] [address] [id number] [place] [address] 13 Oct, 2011 [facility] [place] [facility] [address] [id number], [place] [address] 18 Sep, 2011 [facility] [address] [facility] [address] [id number] [address] 18 Sep, 2011 [facility] [address] [facility] [id number] [address] 17 Sep, 2011 [facility] [address] [id number], [place] [address] Sep, [facility] [id number] [address] 07 Sep, 2011 [facility] [address] [id number], [place] [address] Sep, [facility] [address] [id number] [address] 14 Jan, 2011 [facility] [address] [id number], [place] [address] Apr, IMMUNIZATIONS No Known Immunizations SOCIAL HISTORY Never Assessed REASON FOR VISIT [facility] [place] PLAN OF CARE VITAL SIGNS MEDICATIONS Medication Instructions Dosage Frequency Start Date End Date Duration Status Flagyl 500 mg 1 tablet by Oral route 3 times per day for 7 days Sep, Active Klonopin 2 mg 0.5-1 Tablet 0.5-1 tab by Oral route oral 2 times per day PRN FOR ANXIETY - must last 30 days. Jan, Active Remeron 30 mg take 1 Tablet by Oral route 1 time per day take at HS for sleep Oct, Active Cipro 500 mg 1 tablet by Oral route every 12 hours for 7 day(s) Sep, Active Lexapro 20 mg 1 tablet by Oral route 1 time per day Oct, Active Latuda 40 mg 1 tablet 1 time per day take daily with supper. Jan, Active RESULTS No Results PROCEDURES No Known [...] History Left ovary removed 12/2017 Hospitalization History [facility] Admission x4 2010 most recent admission Hospitalization History [facility]; overdose 2010 Hospitalization History child 11/29/2016 Hospitalization History ER 02/2019
--- OUTSIDE RECORDS SUMMARY | 2019-05-27 20:48 | XMS REPORT ---
Author Author Migration, Doctor Organization [facility] Address Unknown Phone Unavailable Care Team Providers Care Market Development Manager Name Role Phone Migration, Doctor Unavailable Unavailable PROBLEMS Type Condition ICD9-CM Code [id number] Code Onset Dates Condition Status SNOMED Code Problem Generalized anxiety disorder F41.1 Active 03739457 Problem Bipolar disorder, current episode mixed, moderate F31.62 Active 542737059 Problem Acute non intractable tension-type headache G44.209 Active 254489645 Problem Constipation K59.00 Active 15960645 Problem Post traumatic stress disorder F43.10 Active 03478920 Problem Borderline personality disorder F60.3 Active 49078695 Problem Endometriosis N80.9 Active 267194083 Problem Acute right-sided low back pain with right-sided sciatica M54.41 Active [id number] ALLERGIES No Information ENCOUNTERS Encounter Location Date Diagnosis [facility] [id number] [place] [address] Feb, [facility] [address] [address] Feb, Pelvic floor dysfunction M62.89 [facility] [address] [address] Feb, Bipolar disorder, current episode mixed, moderate F31.62 [facility] [id number] [place] [address] Jan, Dehydration E86.0 and Back muscle spasm M62.830 [facility] [id number] [place] [address] Jan, Bipolar disorder, current episode mixed, moderate F31.62 ; Post traumatic stress disorder F43.10 ; Borderline personality disorder F60.3 and Other correction (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 Z79.899 [facility] [address] [address] Jan, Cough R05 and Viral upper respiratory tract infection J06.9 [facility] [id number] [place] [address] Jan, Bipolar disorder, current episode mixed, moderate F31.62 [facility] [id number] [place] [address] 08 Dec, 2018 Bipolar disorder, current episode mixed, moderate F31.62 [facility] [address] [address] Nov, Bipolar disorder, current episode mixed, moderate F31.62 [facility] [address] [address] Oct, Sore throat J02.9 [facility] [place] [id number] [place] [address] Oct, Abdominal pain R10.9 ; Low back pain M54.5 ; Left shoulder pain M25.512 and Constipation K59.00 [facility] [id number] [place] [address] Oct, Bipolar disorder, current episode mixed, moderate F31.62 ; Post traumatic stress disorder F43.10 and Borderline personality disorder F60.3 [facility] [id number] [place] [address] Sep, Bipolar disorder, current episode mixed, moderate F31.62 [facility] [id number] [place] [address] Aug, Bipolar disorder, current episode mixed, moderate F31.62 [facility] [address] [address] Jul, Thrombophlebitis I80.9 and Pelvic pain R10.2 [facility] [id number] [place] [address] 05 Jul, 2018 Bipolar disorder, current episode mixed, moderate F31.62 ; Post traumatic stress disorder F43.10 and Borderline personality disorder F60.3 [facility] [address] [place] [address] Jun, Bipolar disorder, current episode mixed, moderate F31.62 [facility] [id number] [place] [address] May, Palpitations R00.2 [facility] [address] [address] May, Palpitations R00.2 [facility] [place] [id number] [place] [address] 12 May, 2018 Palpitations R00.2 and Frequent bowel movements R19.4 [facility] [id number] [place] [address] May, Bipolar disorder, current episode mixed, moderate F31.62 ; Post traumatic stress disorder F43.10 and Borderline personality disorder F60.3 [facility] [id number] [place] [id number] Apr, Dental examination Z01.20 [facility] [id number] [place] [address] 15 Apr, 2018 [facility] [id number] [place] [address] Apr, Dental examination Z01.20 [facility] [id number] [place] [address] Apr, Tooth pain K08.89 [facility] [id number] [place] [address] 06 Apr, 2018 Bipolar disorder, current episode mixed, moderate F31.62 ; Post traumatic stress disorder F43.10 and Borderline personality disorder F60.3 [facility] [id number] [place] [address] March, Abdominal pain R10.9 ; UTI symptoms R39.9 and Other microscopic hematuria R31.29 [facility] [id number] [place] [address] March, [facility] [address] [address] March, Bipolar disorder, current episode mixed, moderate F31.62 ; Post traumatic stress disorder F43.10 and Borderline personality disorder F60.3 [facility] [address] [address] Feb, Encounter for immunization Z23 [facility] [id number] [place] [address] Feb, Bipolar disorder, current episode mixed, moderate F31.62 ; Post traumatic stress disorder F43.10 and Borderline personality disorder F60.3 [facility] [id number] [place] [address] Feb, Bipolar disorder, current episode mixed, moderate F31.62 ; Post traumatic stress disorder F43.10 ; Borderline personality disorder F60.3 and Other correction (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 Z79.899 [facility] [id number] [place] [address] Jan, Encounter for immunization Z23 [facility] [id number] [place] [address] Jan, [facility] [id number] [place] [address] Jan, Bipolar disorder, current episode mixed, moderate F31.62 [facility] [id number] [place] [address] 10 Jan, 2018 Lumbar back pain M54.5 [facility] [id number] [place] [address] 28 Dec, 2017 Low back pain M54.5 [facility] [id number] [place] [address] 13 Dec, 2017 Bipolar disorder, current episode mixed, moderate F31.62 [facility] [address] [place] [address] Dec, Generalized anxiety disorder F41.1 and Bipolar disorder, current episode mixed, moderate F31.62 [facility] [id number] [place] [address] Nov, Acute non intractable tension-type headache G44.209 [place] [address] [place] [address] Nov, Bipolar disorder, current episode mixed, moderate F31.62 ; Post traumatic stress disorder F43.10 and Borderline personality disorder F60.3 [facility] [place] [address] Nov, Bipolar disorder, current episode mixed, moderate F31.62 [facility] [place] [address] [address] Nov, Abdominal pain R10.9 ; History of PCOS Z87.42 ; History of endometriosis Z87.42 and Pelvic pain R10.2 [place] [address] [address] Nov, [facility] [id number] [place] [address] Oct, History of PCOS Z87.42 ; History of endometriosis Z87.42 and Pain R52 [facility] [place] [id number] [place] [address] Oct, Bipolar disorder, current episode mixed, moderate F31.62 ; Post traumatic stress disorder F43.10 and Borderline personality disorder F60.3 [facility] [id number] [place] [address] Oct, Bipolar disorder, current episode mixed, moderate F31.62 [facility] [id number] [place] [address] Sep, Bipolar disorder, current episode mixed, moderate F31.62 ; Post traumatic stress disorder F43.10 ; Borderline personality disorder F60.3 and Other correction (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 Z79.899 [facility] [id number] [place] [address] 17 Sep, 2017 Bipolar disorder, current episode mixed, moderate F31.62 [facility] [address] [address] Sep, Endometriosis N80.9 and Acute right-sided low back pain with right- sided sciatica M54.41 [facility] [address] [address] Aug, [place] [place] [address] [address] Aug, Bipolar disorder, current episode mixed, moderate F31.62 ; Post traumatic stress disorder F43.10 and Borderline personality disorder F60.3 [facility] [address] [address] Aug, Bipolar disorder, current episode mixed, moderate F31.62 ; Post traumatic stress disorder F43.10 and Borderline personality disorder F60.3 [facility] [id number] [place] [address] 13 Jul, 2017 Bipolar disorder, current episode mixed, moderate F31.62 ; Post traumatic stress disorder F43.10 and Borderline personality disorder F60.3 [facility] [address] [place] [address] 11 Jul, 2017 Pharyngitis, unspecified etiology J02.9 and Streptococcal pharyngitis J02.0 [facility] [place] [address] [address] 16 Jun, 2017 Bipolar disorder, current episode mixed, moderate F31.62 ; Post traumatic stress disorder F43.10 and Borderline personality disorder F60.3 [facility] [place] [id number] [place] [address] May, [facility] [address] [address] May, [facility] [id number] [place] [address] May, Bipolar disorder, current episode mixed, moderate F31.62 and Generalized anxiety disorder F41.1 [facility] [id number] [place] [address] March, Bipolar disorder, current episode mixed, moderate F31.62 and Generalized anxiety disorder F41.1 [facility] [id number] [place] [address] March, Pelvic pain R10.2 [facility] [id number] [place] [address] March, [facility] [id number] [place] [address] Feb, Bipolar disorder, current episode mixed, moderate F31.62 and Generalized anxiety disorder F41.1 [facility] [id number] [place] [address] Jan, [facility] [id number] [place] [address] Jan, Bipolar disorder, current episode mixed, moderate F31.62 [facility] [address] [place] [address] Jan, Bipolar disorder, current episode mixed, moderate F31.62 [facility] [address] [place] [address] Jan, Bilateral low back pain without sciatica M54.5 [facility] [id number] [place] [id number] Jan, Dental caries K02.9 and Dental examination Z01.20 [facility] [id number] [place] [id number] 09 Jan, 2017 Encounter for dental examination and cleaning without abnormal findings Z01.20 [facility] [address] [place] [address] 06 Jan, 2017 Bipolar disorder, current episode mixed, moderate F31.62 and Generalized anxiety disorder F41.1 [facility] [id number] [place] [address] 24 Dec, 2016 [facility] [address] [address] Dec, Bipolar disorder, current episode mixed, moderate F31.62 and Generalized anxiety disorder F41.1 [place] [address] [address] 03 Dec, 2016 Other fatigue R53.83 and Orthostatic hypotension I95.1 [facility] [address] [id number] Nov, Dental examination Z01.20 [facility] [id number] [place] [address] Nov, Bronchitis J40 [place] [address] [address] 14 Oct, 2016 Generalized anxiety disorder F41.1 [facility] [id number] [place] [address] 14 Sep, 2016 Bipolar disorder, current episode mixed, moderate F31.62 and Generalized anxiety disorder F41.1 [facility] [id number] [place] [address] 02 Sep, 2016 Bipolar disorder, current episode mixed, moderate F31.62 and Generalized anxiety disorder F41.1 [facility] [address] [address] 08 Jul, 2016 Upper respiratory tract infection, unspecified type J06.9 [facility] [id number] [place] [address] Jun, Bipolar disorder, current episode mixed, moderate F31.62 and Generalized anxiety disorder F41.1 [facility] [address] [place] [address] Apr, [facility] [id number] [place] [address] Apr, Encounter for test, result positive Z32.01 [facility] [id number] [place] [address] March, [facility] [id number] [place] [address] March, Bipolar disorder, current episode mixed, moderate F31.62 and Generalized anxiety disorder F41.1 [facility] [id number] [place] [address] March, Bipolar disorder, current episode mixed, moderate F31.62 and Generalized anxiety disorder F41.1 [facility] [id number] [place] [address] March, [facility] [id number] [place] [address] March, [facility] [id number] [place] [address] Feb, [facility] [address] [place] [address] Feb, [facility] [id number] [place] [address] Feb, Bipolar disorder, current episode mixed, moderate F31.62 and Generalized anxiety disorder F41.1 [facility] [address] [place] [address] Jan, Abdominal pain R10.9 [facility] [id number] [place] [address] 14 Jan, 2016 [facility] [address] [place] [address] 29 Feb, 2016 Dental examination Z01.20 [place] [place] [id number] [place] [address] 22 Dec, 2015 Dental examination Z01.20 and Dental caries K02.9 [facility] [place] [id number] [place] [address] 15 Dec, 2015 Bipolar disorder, current episode mixed, moderate F31.62 and Generalized anxiety disorder F41.1 [place] [address] [address] 15 Dec, 2015 [place] [address] [address] Nov, Bipolar disorder, current episode mixed, moderate F31.62 ; Generalized anxiety disorder F41.1 and Seizure-like activity R56.9 [place] [address] [address] Oct, [place] [address] [address] Oct, Bipolar disorder, current episode mixed, moderate F31.[address] [address] 14 Oct, 2015 Well woman exam Z01.419 [...] Tobacco use Z72.0 and Hot flashes N95.1 [place] [id number] [place] [address] 09 Oct, 2015 Seizure-like activity R56.9 and Irregular periods N92.6 [place] [place] [address] [id number] Oct, Bipolar disorder, current episode mixed, moderate F31.62 ; Generalized anxiety disorder F41.1 and Underweight R63.6 [facility] [id number] [place] [address] Oct, [facility] [address] [address] Oct, Generalized anxiety disorder F41.1 and Unspecified mood [affective] disorder F39 [facility] [address] [address] Oct, Back pain M54.9 and Anxiety F41.9 [place] [address] [address] Oct, [facility] [address] [address] Sep, Arm pain, left M79.602 [place] [address] [address] Sep, [facility] [address] [id number] Sep, Dental examination Z01.20 and Dental caries K02.9 [place] [id number] [place] [address] Sep, Generalized anxiety disorder F41.1 and Unspecified episodic mood disorder F39 [place] [place] [id number] [place] [address] Sep, Bilateral low back pain without sciatica M54.5 and Seizure-like activity R56.9 [place] [address] [address] Aug, [facility] [address] [address] 16 Aug, 2015 [facility] [address] [address] Aug, [facility] [id number] [place] [address] Aug, Visual changes H53.9 and Bilateral low back pain without sciatica M54.5 [facility] [id number] [place] [address] Jul, [facility] [address] [address] Jun, Bipolar I disorder, most recent episode (or current) mixed, moderate 296.62 ; Generalized anxiety disorder 300.02 and High risk medication use V58.69 [facility] [address] [address] Jun, [facility] [address] [address] May, [facility] [address] [address] May, Bipolar I disorder, most recent episode (or current) mixed, moderate 296.62 and Generalized anxiety disorder 300.02 [facility] [id number] [place] [id number] May, Dental examination V72.2 [facility] [id number] [place] [address] March, Bipolar I disorder, most recent episode (or current) mixed, moderate 296.62 and Generalized anxiety disorder 300.02 [facility] [id number] [place] [address] March, [facility] [id number] [place] [address] March, [facility] [id number] [place] [address] March, Underweight 783.22 ; Hand pain, right 729.5 and Reflux gastritis 535.40 [facility] [id number] [place] [address] 14 Feb, 2015 [facility] [place] [facility] [address] [id number] [place] [address] 13 Feb, 2015 [facility] [place] [facility] [address] [id number] [place] [address] 18 Jan, 2015 [facility] [place] [facility] [address] [facility] [id number] [place] [address] 18 Jan, 2015 [facility] [place] [facility] [address] [id number] [place] [address] 16 Jan, 2015 [facility] [place] [facility] [address] [id number] [place] [address] 16 Jan, 2015 [facility] [place] [facility] [address] [id number] [place] [address] Jan, [facility] [place] [facility] [address] [facility]] [id number] [place] [address] Jan, [facility] [place] [facility] [address] [facility]] [id number] [place] [address] 05 Jan, 2015 [facility] [place] [facility] [address] [id number] [place] [address] 05 Jan, 2015 [facility] [place] [facility] [address] [facility]] [id number] [place] [address] Jan, [facility] [place] [facility] [address] [id number] [place] [address] Jan, [facility] [place] [facility] [address] [facility]] [id number] [address] Jan, [facility] [place] [facility] [address] [id number] [place] [address] Jan, [facility] [place] [facility] [address] [facility]] [id number] [place] [address] Dec, [facility] [place] [facility] [address] [facility]] [id number] [place] [address] Dec, [facility] [place] [facility] [address] [id number] [place] [address] Dec, 2014 [facility] [place] [facility] [address] [id number] [place] [address] 19 Dec, 2014 [facility] [place] [facility] [address] [id number] [place] [address] 18 Dec, 2014 [facility] [place] [facility] [address] [id number] [place] [address] 17 Dec, 2014 [facility] [place] [facility] [address] [id number] [place] [address] 17 Dec, 2014 [facility] [place] [facility] [address] [id number] [place] [address] 16 Dec, 2014 [facility] [place] [facility] [address] [facility]] [id number] [place] [address] 16 Dec, 2014 [facility] [place] [facility] [address] [facility]] [id number] [place] [address] 05 Dec, 2014 [facility] [place] [facility] [address] [facility]] [id number] [place] [address] 05 Dec, 2014 [facility] [place] [facility] [address] [facility]] [id number] [place] [address] 05 Dec, 2014 [facility] [place] [facility] [address] [facility]] [id number] [place] [address] Dec, 2014 [facility] [place] [facility] [address] [facility]] [id number] [place] [address] Dec, 2014 [facility] [place] [facility] [address] [facility]] [id number] [place] [address] Dec, 2014 [facility] [place] [facility] [address] [facility] [place]NOTE 3] [id number] [place] [address] Dec, 2014 [facility] [place] [facility] [address] [facility] [place]NOTE 3] [id number] [place] [address] Dec, 2014 [facility] [place] [facility] [address] [facility] [place]NOTE 3] [id number] [place] [address] Dec, [facility] [place] [facility] [address] [id number] [place] [address] Dec, [facility] [place] [facility] [address] [id number] [place] [address] Nov, [facility] [place] [facility] [address] [id number] [place] [address] Nov, [facility] [place] [facility] [address] [id number] [place] [address] Nov, [facility] [place] [facility] [address] [id number] [place] [address] Nov, [facility] [place] [facility] [address] [id number] [place] [address] Nov, [facility] [place] [facility] [address] [id number] [place] [address] Nov, [facility] [place] [facility] [address] [id number] [id number] Nov, [facility] [place] [facility] [address] [id number] [place] [address] Nov, [facility] [place] [facility] [address] [id number] [place] [address] Nov, [facility] [place] [facility] [address] [id number] [id number] Nov, [facility] [place] [facility] [address] [id number] [place] [address] Nov, [facility] [place] [facility] [address] [id number] [place] [address] Nov, [facility] [place] [facility] [address] [id number] [place] [address] Oct, [facility] [place] [facility] [address] [id number] [place] [address] Oct, [facility] [place] [facility] [address] [id number] [place] [address] Oct, [facility] [place] [facility] [address] [id number] [place] [address] Oct, [facility] [place] [facility] [address] [id number] [place] [address] Oct, [facility] [place] [facility] [address] [id number] [place] [address] Oct, [facility] [place] [facility] [address] [id number] [place] [address] Oct, [facility] [place] [facility] [address] [id number] [place] [address] Oct, [facility] [place] [facility] [address] [id number] [place] [address] Oct, [facility] [place] [facility] [address] [id number] [place] [address] Oct, [facility] [place] [facility] [address] [id number] [place] [address] Oct, [facility] [place] [facility] [address] [id number] [place] [address] Oct, [facility] [place] [facility] [address] [id number] [place] [address] Sep, [facility] [place] [facility] [address] [id number] [place] [address] Sep, [facility] [place] [facility] [address] [id number] [place] [address] Sep, [facility] [place] [facility] [address] [id number] [place] [address] Sep, [facility] [place] [facility] [address] [facility]NOTE [facility] [id number] [address] Sep, [facility] [place] [facility] [address] [id number] [place] [address] Sep, [facility] [place] [facility] [address] [id number] [place] [address] Sep, [facility] [place] [facility] [address] [id number] [place] [address] Sep, [facility] [place] [facility] [address] [id number] [place] [address] Aug, [facility] [place] [facility] [address] [id number] [place] [address] Aug, [facility] [place] [facility] [address] [id number] [place] [address] Aug, [facility] [place] [facility] [address] [id number] [place] [address] Aug, [facility] [place] [facility] [address] [id number] [place] [address] Aug, [facility] [place] [facility] [address] [id number] [place] [address] Aug, [facility] [place] [facility] [address] [facility]NOTE 3] [id number] [place] [address] Aug, [facility] [place] [facility] [address] [facility]NOTE 3] [id number] [place] [address] Aug, [facility] [place] [facility] [address] [id number] [place] [address] Aug, [facility] [place] [facility] [address] [id number] [place] [address] Aug, [facility] [place] [facility] [address] [id number] [place] [address] Aug, [facility] [place] [facility] [address] [id number] [place] [address] Aug, [facility] [place] [facility] [address] [facility]NOTE 3] [id number] [place] [address] Aug, [facility] [place] [facility] [address] [id number] [place] [address] Jul, [facility] [place] [facility] [address] [id number] [place] [address] Jul, [facility] [place] [facility] [address] [id number] [place] [address] Jul, [facility] [place] [facility] [address] [id number] [place] [address] Jul, [facility] [place] [facility] [address] [id number] [place] [address] Jun, [facility] [place] [facility] [address] [id number] [place] [address] Jun, [facility] [place] [facility] [address] [id number] [place] [address] Jun, [facility] [place] [facility] [address] [id number] [place] [address] Jun, [facility] [place] [facility] [address] [id number] [place] [address] Jun, [facility] [place] [facility] [address] [id number] [place] [address] Jun, [facility] [place] [facility] [address] [id number] [place] [address] May, [facility] [place] [facility] [address] [id number] [place] [address] May, [facility] [place] [facility] [address] [id number] [place] [address] May, [facility] [place] [facility] [address] [id number] [place] [address] May, [facility] [place] [facility] [address] [id number] [place] [address] Apr, [facility] [place] [facility] [address] [id number] [place] [address] Apr, [facility] [place] [facility] [address] [id number] [place] [address] March, [facility] [place] [facility] [address] [id number] [place] [address] March, [facility] [place] [facility] [address] [id number] [place] [address] March, [facility] [place] [facility] [address] [id number] [place] [address] March, [facility] [place] [facility] [address] [id number] [place] [address] March, [facility] [place] [facility] [address] [id number] [place] [address] March, [facility] [place] [facility] [address] [id number] [place] [address] Feb, [facility] [place] [facility] [address] [id number] [place] [address] Feb, [facility] [place] [facility] [address] [id number] [place] [address] Dec, [facility] [place] [facility] [address] [id number] [place] [address] Dec, [facility] [place] [facility] [address] [id number] [place] [address] Nov, [facility] [place] [facility] [address] [id number] [place] [address] Nov, [facility] [place] [facility] [address] [id number] [place] [address] Sep, [facility] [place] [facility] [address] [id number] [place] [address] Sep, [facility] [place] [facility] [address] [id number] [place] [address] Sep, [facility] [place] [facility] [address] [id number] [place] [address] Sep, [facility] [place] [facility] [address] [id number] [place] [address] Sep, [facility] [place] [facility] [address] [id number] [place] [address] Sep, [facility] [place] [facility] [address] [id number] [place] [address] Sep, [facility] [place] [facility] [address] [id number] [place] [address] Aug, [facility] [place] [facility] [address] [id number] [place] [address] Aug, [facility] [place] [facility] [address] [id number] [place] [address] Aug, [facility] [place] [facility] [address] [id number] [place] [address] Aug, [facility] [place] [facility] [address] [id number] [place] [address] Aug, [facility] [place] [facility] [address] [id number] [place] [address] Aug, [facility] [place] [facility] [address] [id number] [place] [address] Jul, [facility] [place] [facility] [address] [id number] [place] [address] 19 Jul, 2013 [facility] [place] [facility] [address] [id number] [place] [address] 16 Jul, 2013 [facility] [place] [facility] [address] [id number] [place] [address] 13 Jul, 2013 [facility] [place] [facility] [address] [id number] [place] [address] Jun, [facility] [place] [facility] [address] [id number] [place] [address] Jun, [facility] [place] [facility] [address] [id number] [place] [address] Jun, [facility] [place] [facility] [address] [id number] [place] [address] Jun, [facility] [place] [facility] [address] [id number] [place] [address] Jun, [facility] [place] [facility] [address] [id number] [place] [address] Jun, [facility] [address] [id number] [place] [address] Jun, [facility] [place] [facility] [address] [id number] [place] [address] May, [facility] [address] [id number] [place] [address] May, [facility] [address] [id number] [place] [address] May, [facility] [place] [facility] [address] [id number] [place] [address] May, [facility] [place] [facility] [address] [id number] [place] [address] May, [facility] [place] [facility] [address] [id number] [place] [address] May, [facility] [place] [facility] [address] [id number] [place] [address] May, [facility] [place] [facility] [address] [id number] [place] [address] Apr, [facility] [place] [facility] [address] [id number] [place] [address] Apr, [facility] [place] [facility] [address] [id number] [place] [address] Apr, [facility] [place] [facility] [address] [id number] [place] [address] 26 Apr, 2013 [facility] [place] [facility] [address] [id number] [place] [address] 20 Apr, 2013 [facility] [place] [facility] [address] [id number] [place] [address] 18 Apr, 2013 [facility] [place] [facility] [address] [id number] [place] [address] 18 Apr, 2013 [facility] [place] [facility] [address] [id number] [place] [address] 18 Apr, 2013 [facility] [place] [facility] [address] [id number] [place] [address] 17 Apr, 2013 [facility] [place] [facility] [address] [id number] [place] [address] 14 Apr, 2013 [facility] [place] [facility] [address] [id number] [place] [address] 14 Apr, 2013 [facility] [place] [facility] [address] [id number] [place] [address] 11 Apr, 2013 [facility] [place] [facility] [address] [id number] [place] [address] 10 Apr, 2013 [facility] [place] [facility] [address] [id number] [place] [address] 09 Apr, 2013 [facility] [place] [facility] [address] [id number] [place] [address] 07 Apr, 2013 [facility] [place] [facility] [address] [id number] [place] [address] 06 Apr, 2013 [facility] [place] [facility] [address] [id number] [place] [address] 06 Apr, 2013 [facility] [place] [facility] [address] [id number] [place] [address] 05 Apr, 2013 [facility] [place] [facility] [address] [id number] [place] [address] 03 Apr, 2013 [facility] [place] [facility] [address] [id number] [place] [address] March, [facility] [address] [id number] [place] [address] March, [facility] [address] [id number] [place] [address] March, [facility] [address] [id number] [place] [address] March, [facility] [address] [id number] [place] [address] March, [facility] [address] [id number] [place] [address] March, [facility] [address] [id number] [place] [address] March, [facility] [address] [id number] [place] [address] Feb, [facility] [address] [id number] [place] [address] Feb, [facility] [address] [id number] [place] [address] 27 Jan, 2013 [facility] [address] [id number] [place] [address] [address], [address] [facility] [address] [id number] [place] [address] 15 Jan, 2013 [facility] [address] [id number] [place] [address] 14 Jan, 2013 [facility] [address] [id number] [place] [address] 13 Jan, 2013 [facility] [address] [id number] [place] [address] 12 Jan, 2013 [facility] [address] [id number] [place] [address] 11 Jan, 2013 [facility] [place] [facility] [address] [id number] [place] [address] 09 Jan, 2013 [facility] [place] [facility] [address] [id number] [place] [address] 08 Jan, 2013 [facility] [place] [facility] [address] [id number] [place] [address] 07 Jan, 2013 [facility] [place] [facility] [address] [id number] [place] [address] 06 Jan, 2013 [facility] [place] [facility] [address] [id number] [place] [address] 17 Nov, 2012 [facility] [place] [facility] [address] [id number] [place] [address] Oct, [facility] [place] [facility] [address] [id number] [place] [address] Oct, [facility] [place] [facility] [address] [id number] [place] [address] Oct, [facility] [place] [facility] [address] [id number] [place] [address] Oct, [facility] [place] [facility] [address] [id number] [place] [address] 30 Sep, 2012 [facility] [place] [facility] [address] [id number] [place] [address] 30 Sep, 2012 [facility] [place] [facility] [address] [id number] [place] [address] Sep, [facility] [place] [facility] [address] [id number] [place] [address] 16 Sep, 2012 [facility] [place] [facility] [address] [id number] [place] [address] 16 Sep, 2012 [facility] [place] [facility] [address] [id number] [place] [address] 16 Sep, 2012 [facility] [place] [facility] [address] [id number] [place] [address] Sep, [facility] [place] [facility] [address] [id number] [place] [address] Sep, [facility] [place] [facility] [address] [id number] [place] [address] Sep, [facility] [place] [facility] [address] [id number] [place] [address] Sep, [facility] [place] [facility] [address] [id number] [place] [address] Sep, [facility] [place] [facility] [address] [id number] [place] [address] Aug, [facility] [place] [facility] [address] [id number] [place] [address] Aug, [facility] [place] [facility] [address] [id number] [place] [address] Aug, [facility] [place] [facility] [address] [id number] [place] [address] 28 Jul, 2012 [facility] [place] [facility] [address] [id number] [place] [address] 25 Jul, 2012 [facility] [place] [facility] [address] [id number] [place] [address] 19 Jul, 2012 [facility] [place] [facility] [address] [id number] [place] [address] 17 Jul, 2012 [facility] [place] [facility] [address] [id number] [place] [address] 20 Jun, 2012 [facility] [place] [facility] [address] [id number] [place] [address] 16 Jun, 2012 [facility] [place] [facility] [address] [id number] [place] [address] 15 Jun, 2012 [facility] [place] [facility] [address] [id number] [place] [address] 15 Jun, 2012 [facility] [place] [facility] [address] [id number] [place] [address] Jun, [facility] [place] [facility] [address] [id number] [place] [address] 18 Mar, 2012 [facility] [place] [facility] [address] [id number] [place] [address] 04 Feb, 2012 [facility] [place] [facility] [address] [id number] [place] [address] 28 Jan, 2012 [facility] [place] [facility] [address] [id number] [place] [address] 27 Jan, 2012 [facility] [place] [facility] [address] [id number] [place] [address] 22 Jan, 2012 [facility] [place] [facility] [address] [id number] [place] [address] 14 Jan, 2012 [facility] [place] [facility] [address] [id number] [place] [address] 14 Jan, 2012 [facility] [place] [facility] [address] [id number] [place] [address] 14 Jan, 2012 [facility] [place] [facility] [address] [id number] [place] [address] 28 Dec, 2011 [facility] [place] [facility] [address] [id number] [place] [address] 27 Dec, 2011 [facility] [place] [facility] [address] [id number] [place] [address] 23 Dec, 2011 [facility] [place] [facility] [address] [id number] [place] [address] 21 Dec, 2011 [facility] [place] [facility] [address] [id number] [place] [address] 20 Dec, 2011 [facility] [place] [facility] [address] [id number] [place] [address] 19 Dec, 2011 [facility] [place] [facility] [address] [id number] [place] [address] Dec, [facility] [id number] [address] Dec, [facility] [id number] [address] Nov, [facility] [id number] [address] Oct, [facility] [id number] [address] Sep, [facility] [id number] [place] [address] Sep, [facility] [id number] [place] [address] Sep, [facility] [id number] [place] [address] Sep, [facility] [id number] [address] Sep, [facility] [id number] [address] Sep, [facility] [id number] [address] Jan, [facility] [id number] [address] Apr, IMMUNIZATIONS No Known Immunizations SOCIAL HISTORY Never Assessed REASON FOR VISIT [facility] [place] PLAN OF CARE VITAL [...]
--- OUTSIDE RECORDS SUMMARY | 2019-05-27 20:48 | XMS REPORT ---
Author Author Migration, Doctor Organization [facility] Address Unknown Phone Unavailable Care Team Providers Care Gaming Director Name Role Phone Migration, Doctor Unavailable Unavailable PROBLEMS Type Condition ICD9-CM Code BKS01-VH Code Onset Dates Condition Status SNOMED Code Problem Generalized anxiety disorder F41.1 Active 10814212 Problem Bipolar disorder, current episode mixed, moderate F31.62 Active 041295542 Problem Acute non intractable tension-type headache G44.209 Active 634829404 Problem Constipation K59.00 Active 76269169 Problem Post traumatic stress disorder F43.10 Active 22966077 Problem Borderline personality disorder F60.3 Active 04885720 Problem Endometriosis N80.9 Active 259553217 Problem Acute right-sided low back pain with right-sided sciatica M54.41 Active [id number] ALLERGIES No Information ENCOUNTERS Encounter Location Date Diagnosis [facility] [address] [address] Apr, [facility] [address] [address] Feb, Bipolar disorder, current episode mixed, moderate F31.62 ; Post traumatic stress disorder F43.10 ; Borderline personality disorder F60.3 and Other penitentiary (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 Z79.899 [facility] [id number] [place] [address] Feb, Pelvic floor dysfunction M62.89 [facility] [id number] [place] [address] Feb, Bipolar disorder, current episode mixed, moderate F31.62 [facility] [id number] [place] [address] Jan, Dehydration E86.0 and Back muscle spasm M62.830 [facility] [address] [address] Jan, Bipolar disorder, current episode mixed, moderate F31.62 ; Post traumatic stress disorder F43.10 ; Borderline personality disorder F60.3 and 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 [facility] [id number] [place] [address] Jan, Cough R05 and Viral upper respiratory tract infection J06.9 [facility] [id number] [place] [address] Jan, Bipolar disorder, current episode mixed, moderate F31.62 [place] [place] [address] [address] Dec, Bipolar disorder, current episode mixed, moderate F31.62 [facility] [id number] [place] [address] Nov, Bipolar disorder, current episode mixed, moderate F31.62 [facility] [id number] [place] [address] Oct, Sore throat J02.9 [facility] [place] [id number] [place] [address] Oct, Abdominal pain R10.9 ; Low back pain M54.5 ; Left shoulder pain M25.512 and Constipation K59.00 [facility] [id number] [place] [address] Oct, Bipolar disorder, current episode mixed, moderate F31.62 ; Post traumatic stress disorder F43.10 and Borderline personality disorder F60.3 [facility] [id number] [place] [address] Sep, Bipolar disorder, current episode mixed, moderate F31.62 [facility] [id number] [place] [address] Aug, Bipolar disorder, current episode mixed, moderate F31.62 [place] [address] [place] [id number] Jul, Thrombophlebitis I80.9 and Pelvic pain R10.2 [facility] [id number] [place] [address] 05 Jul, 2018 Bipolar disorder, current episode mixed, moderate F31.62 ; Post traumatic stress disorder F43.10 and Borderline personality disorder F60.3 [facility] [id number] [place] [address] Jun, Bipolar disorder, current episode mixed, moderate F31.62 [facility] [id number] [place] [address] May, Palpitations R00.2 [facility] [id number] [place] [address] May, Palpitations R00.2 [facility] [id number] [place] [address] May, Palpitations R00.2 and Frequent bowel movements R19.4 [facility] [id number] [place] [address] May, Bipolar disorder, current episode mixed, moderate F31.62 ; Post traumatic stress disorder F43.10 and Borderline personality disorder F60.3 [facility] [address] [place] [id number] Apr, Dental examination Z01.20 [facility] [id number] [place] [address] Apr, [facility] [id number] [place] [address] Apr, Tooth pain K08.89 [facility] [id number] [place] [address] Apr, Dental examination Z01.20 [facility] [id number] [place] [address] 06 Apr, 2018 Bipolar disorder, current episode mixed, moderate F31.62 ; Post traumatic stress disorder F43.10 and Borderline personality disorder F60.3 [facility] [id number] [place] [address] March, Abdominal pain R10.9 ; UTI symptoms R39.9 and Other microscopic hematuria R31.29 [facility] [id number] [place] [address] March, [facility] [address] [address] March, Bipolar disorder, current episode mixed, moderate F31.62 ; Post traumatic stress disorder F43.10 and Borderline personality disorder F60.3 [facility] [id number] [place] [address] Feb, Encounter for immunization Z23 [facility] [address] [address] Feb, Bipolar disorder, current episode mixed, moderate F31.62 ; Post traumatic stress disorder F43.10 and Borderline personality disorder F60.3 [facility] [id number] [place] [address] Feb, Bipolar disorder, current episode mixed, moderate F31.62 ; Post traumatic stress disorder F43.10 ; Borderline personality disorder F60.3 and 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 [facility] [place] [id number] [place] [address] Jan, Encounter for immunization Z23 [facility] [id number] [place] [address] Jan, [facility] [id number] [place] [address] Jan, Bipolar disorder, current episode mixed, moderate F31.62 [facility] [id number] [place] [address] Jan, Lumbar back pain M54.5 [facility] [id number] [place] [address] 28 Dec, 2017 Low back pain M54.5 [facility] [id number] [place] [address] 13 Dec, 2017 Bipolar disorder, current episode mixed, moderate F31.62 [facility] [id number] [place] [address] Dec, Generalized anxiety disorder F41.1 and Bipolar disorder, current episode mixed, moderate F31.62 [facility] [place] [id number] [place] [address] Nov, Acute non intractable tension-type headache G44.209 [facility] [id number] [place] [address] Nov, Bipolar disorder, current episode mixed, moderate F31.62 ; Post traumatic stress disorder F43.10 and Borderline personality disorder F60.3 [facility] [place] [id number] [place] [address] Nov, Bipolar disorder, current episode mixed, moderate F31.62 [facility] [place] [id number] [place] [address] Nov, Abdominal pain R10.9 ; History of PCOS Z87.42 ; History of endometriosis Z87.42 and Pelvic pain R10.2 [place] [id number] [place] [address] Nov, [facility] [id number] [place] [address] Oct, History of PCOS Z87.42 ; History of endometriosis Z87.42 and Pain R52 [place] [address] [place] [address] Oct, Bipolar disorder, current episode mixed, moderate F31.62 ; Post traumatic stress disorder F43.10 and Borderline personality disorder F60.3 [facility] [id number] [place] [address] Oct, Bipolar disorder, current episode mixed, moderate F31.62 [facility] [id number] [place] [address] Sep, Bipolar disorder, current episode mixed, moderate F31.62 ; Post traumatic stress disorder F43.10 ; Borderline personality disorder F60.3 and 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 [place] [place] [id number] [place] [address] Sep, Bipolar disorder, current episode mixed, moderate F31.62 [facility] [place] [id number] [place] [address] Sep, Endometriosis N80.9 and Acute right-sided low back pain with right- sided sciatica M54.41 [place] [address] [address] Aug, [place] [place] [id number] [place] [address] Aug, Bipolar disorder, current episode mixed, moderate F31.62 ; Post traumatic stress disorder F43.10 and Borderline personality disorder F60.3 [place] [id number] [place] [address] 11 Aug, 2017 Bipolar disorder, current episode mixed, moderate F31.62 ; Post traumatic stress disorder F43.10 and Borderline personality disorder F60.3 [place] [place] [id number] [place] [address] 13 Jul, 2017 Bipolar disorder, current episode mixed, moderate F31.62 ; Post traumatic stress disorder F43.10 and Borderline personality disorder F60.3 [facility] [place] [id number] [place] [address] 11 Jul, 2017 Pharyngitis, unspecified etiology J02.9 and Streptococcal pharyngitis J02.0 [place] [id number] [place] [address] Jun, Bipolar disorder, current episode mixed, moderate F31.62 ; Post traumatic stress disorder F43.10 and Borderline personality disorder F60.3 [facility] [id number] [place] [address] May, [facility] [id number] [place] [address] May, [facility] [id number] [place] [address] May, Bipolar disorder, current episode mixed, moderate F31.62 and Generalized anxiety disorder F41.1 [facility] [id number] [place] [address] March, Bipolar disorder, current episode mixed, moderate F31.62 and Generalized anxiety disorder F41.1 [place] [place] [id number] [place] [address] March, Pelvic pain R10.2 [facility] [id number] [place] [address] March, [facility] [id number] [place] [address] Feb, Bipolar disorder, current episode mixed, moderate F31.62 and Generalized anxiety disorder F41.1 [facility] [id number] [place] [address] Jan, [facility] [id number] [place] [address] Jan, Bipolar disorder, current episode mixed, moderate F31.62 [facility] [id number] [place] [address] Jan, Bipolar disorder, current episode mixed, moderate F31.62 [facility] [id number] [place] [address] Jan, Bilateral low back pain without sciatica M54.5 [facility] [id number] [id number] Jan, Dental caries K02.9 and Dental examination Z01.20 [facility] [id number] [place] [id number] 09 Jan, 2017 Encounter for dental examination and cleaning without abnormal findings Z01.20 [facility] [id number] [place] [address] 06 Jan, 2017 Bipolar disorder, current episode mixed, moderate F31.62 and Generalized anxiety disorder F41.1 [facility] [id number] [place] [address] Dec, [facility] [id number] [place] [address] 06 Dec, 2016 Bipolar disorder, current episode mixed, moderate F31.62 and Generalized anxiety disorder F41.1 [facility] [address] [place] [address] 03 Dec, 2016 Other fatigue R53.83 and Orthostatic hypotension I95.1 [facility] [address] [id number] Nov, Dental examination Z01.20 [facility] [id number] [place] [address] 02 Nov, 2016 Bronchitis J40 [facility] [id number] [place] [address] 14 Oct, 2016 Generalized anxiety disorder F41.1 [facility] [id number] [place] [address] 14 Sep, 2016 Bipolar disorder, current episode mixed, moderate F31.62 and Generalized anxiety disorder F41.1 [facility] [address] [place] [address] 02 Sep, 2016 Bipolar disorder, current episode mixed, moderate F31.62 and Generalized anxiety disorder F41.1 [facility] [id number] [place] [address] Jul, Upper respiratory tract infection, unspecified type J06.9 [facility] [id number] [place] [address] Jun, Bipolar disorder, current episode mixed, moderate F31.62 and Generalized anxiety disorder F41.1 [place] [id number] [place] [address] Apr, [place] [address] [address] Apr, Encounter for test, result positive Z32.01 [place] [address] [address] March, [place] [id number] [place] [address] March, Bipolar disorder, current episode mixed, moderate F31.62 and Generalized anxiety disorder F41.1 [place] [place] [id number] [place] [address] March, Bipolar disorder, current episode mixed, moderate F31.62 and Generalized anxiety disorder F41.1 [place] [id number] [place] [address] March, [facility] [id number] [place] [address] March, [facility] [id number] [place] [address] Feb, [facility] [id number] [place] [address] Feb, [facility] [id number] [place] [address] Feb, Bipolar disorder, current episode mixed, moderate F31.62 and Generalized anxiety disorder F41.1 [place] [id number] [place] [address] Jan, Abdominal pain R10.9 [place] [id number] [place] [address] 14 Jan, 2016 [place] [id number] [place] [address] 29 Dec, 2015 Dental examination Z01.20 [place] [place] [id number] [place] [address] 22 Dec, 2015 Dental examination Z01.20 and Dental caries K02.9 [place] [id number] [place] [address] 15 Dec, 2015 Bipolar disorder, current episode mixed, moderate F31.62 and Generalized anxiety disorder F41.1 [place] [id number] [place] [address] 15 Dec, 2015 [place] [id number] [place] [address] Nov, Bipolar disorder, current episode mixed, moderate F31.62 ; Generalized anxiety disorder F41.1 and Seizure-like activity R56.9 [place] [id number] [place] [address] Oct, [place] [id number] [place] [address] Oct, Bipolar disorder, current episode mixed, moderate F31.62 [place] [id number] [place] [address] 14 Oct, 2015 Well woman exam Z01.419 [...] flashes N95.1 [facility] [id number] [place] [address] 09 Oct, 2015 Seizure-like activity R56.9 and Irregular periods N92.6 [facility] [id number] [place] [address] 07 Oct, 2015 Bipolar disorder, current episode mixed, moderate F31.62 ; Generalized anxiety disorder F41.1 and Underweight R63.6 [place] [id number] [address] Oct, [place] [address] [address] Oct, Generalized anxiety disorder F41.1 and Unspecified mood [affective] disorder F39 [facility] [address] [address] Oct, Back pain M54.9 and Anxiety F41.9 [place] [id number] [place] [address] Oct, [facility] [address] [address] Sep, Arm pain, left M79.602 [place] [id number] [place] [address] Sep, [facility] [address] [id number] Sep, Dental examination Z01.20 and Dental caries K02.9 [facility] [id number] [place] [address] Sep, Generalized anxiety disorder F41.1 and Unspecified episodic mood disorder F39 [facility] [id number] [place] [address] Sep, Bilateral low back pain without sciatica M54.5 and Seizure-like activity R56.9 [place] [address] [place] [address] Aug, [facility] [address] [address] Aug, [facility] [id number] [place] [address] Aug, [facility] [id number] [place] [address] Aug, Visual changes H53.9 and Bilateral low back pain without sciatica M54.5 [facility] [id number] [place] [address] Jul, [facility] [id number] [place] [address] Jun, Bipolar I disorder, most recent episode (or current) mixed, moderate 296.62 ; Generalized anxiety disorder 300.02 and High risk medication use V58.69 [facility] [id number] [place] [address] Jun, [facility] [id number] [place] [address] May, [facility] [id number] [place] [address] May, Bipolar I disorder, most recent episode (or current) mixed, moderate 296.62 and Generalized anxiety disorder 300.02 [facility] [address] [id number] May, Dental examination V72.2 [facility] [id number] [place] [address] March, Bipolar I disorder, most recent episode (or current) mixed, moderate 296.62 and Generalized anxiety disorder 300.02 [facility] [address] [address] March, [facility] [id number] [place] [address] March, [facility] [address] [facility] [id number] [place] [address] March, Underweight 783.22 ; Hand pain, right 729.5 and Reflux gastritis 535.40 [facility] [address] [facility] [id number] [place] [address] 14 Feb, 2015 [facility] [address] [facility] [id number] [place] [address] Feb, [facility] [address] [facility] [id number] [place] [address] 18 Jan, 2015 [facility] [id number] [place] [address] 18 Jan, 2015 [facility] [id number] [place] [address] 16 Jan, 2015 [facility] [address] [place] [address] 16 Jan, 2015 [facility] [id number] [place] [address] Jan, [facility] [address] [place] [address] 13 Jan, 2015 [facility] [id number] [place] [address] 05 Jan, 2015 [facility] [id number] [place] [address] 05 Jan, 2015 [facility] [address] [facility] [id number] [place] [address] Jan, [facility] [id number] [place] [address] 04 Jan, 2015 [facility] [address] [facility] [id number] [place] [address] 02 Jan, 2015 [facility] [id number] [place] [address] Jan, 2014 [facility] [place] [facility] [address] [id number] [place] [address] Dec, 2014 [facility] [place] [facility] [address] [facility] [id number] [place] [address] 20 Dec, 2014 [facility] [place] [facility] [address] [facility] [id number] [place] [address] 19 Dec, 2014 [facility] [place] [facility] [address] [facility] [id number] [place] [address] Dec, 2014 [facility] [place] [facility] [address] [facility] [id number] [place] [address] 18 Dec, 2014 [facility] [place] [facility] [address] [facility] [id number] [place] [address] 17 Dec, 2014 [facility] [place] [facility] [id number] [place] [address] 17 Dec, 2014 [facility] [place] [facility] [address] [facility] [id number] [place] [address] 16 Dec, 2014 [facility] [place] [facility] [address] [facility] [id number] [place] [address] 16 Dec, 2014 [facility] [place] [facility] [id number] [place] [address] 05 Dec, 2014 [facility] [place] [facility] [address] [facility] [id number] [place] [address] 05 Dec, 2014 [facility] [place] [facility] [address] [facility] [id number] [place] [address] 05 Dec, 2014 [facility] [place] [facility] [address] [facility] [id number] [place] [address] 05 Dec, 2014 [facility] [place] [facility] [address] [facility] [id number] [place] [address] 04 Dec, 2014 [facility] [place] [facility] [address] [facility] [id number] [place] [address] Dec, 2014 [facility] [place] [facility] [address] [id number] [place] [address] Dec, [facility] [place] [facility] [address] [id number] [place] [address] Dec, [facility] [place] [facility] [address] [id number] [place] [address] Dec, [facility] [place] [facility] [address] [id number] [place] [address] Dec, [facility] [place] [facility] [address] [id number] [place] [address] Nov, [facility] [place] [facility] [address] [id number] [place] [address] Nov, [facility] [place] [facility] [address] [id number] [place] [address] Nov, [facility] [place] [facility] [address] [id number] [place] [address] Nov, [facility] [place] [facility] [address] [id number] [place] [address] Nov, [facility] [place] [facility] [address] [id number] [place] [address] Nov, [facility] [place] [facility] [address] [id number] [place] [id number] Nov, [facility] [place] [facility] [address] [id number] [place] [address] Nov, [facility] [place] [facility] [address] [id number] [place] [address] Nov, [facility] [place] [facility] [address] [id number] [place] [id number] Nov, [facility] [place] [facility] [address] [id number] [place] [address] Nov, [facility] [place] [facility] [address] [id number] [place] [address] Nov, [facility] [place] [facility] [address] [id number] [place] [address] Oct, [facility] [place] [facility] [address] [id number] [place] [address] Oct, [facility] [place] [facility] [address] [id number] [place] [address] Oct, [facility] [place] [facility] [address] [id number] [place] [address] Oct, [facility] [place] [facility] [address] [id number] [place] [address] Oct, [facility] [place] [facility] [address] [id number] [place] [address] Oct, [facility] [place] [facility] [address] [id number] [place] [address] Oct, [facility] [place] [facility] [address] [id number] [place] [address] Oct, [facility] [place] [facility] [address] [id number] [place] [address] Oct, [facility] [place] [facility] [address] [id number] [place] [address] Oct, [facility] [place] [facility] [address] [id number] [place] [address] Oct, [facility] [place] [facility] [address] [id number] [place] [address] Oct, [facility] [place] [facility] [address] [id number] [place] [address] Sep, [facility] [place] [facility] [address] [id number] [place] [address] Sep, [facility] [place] [facility] [address] [id number] [place] [address] Sep, [facility] [place] [facility] [address] [id number] [place] [address] Sep, [facility] [place] [facility] [address] [id number] [place] [address] Sep, [facility] [place] [facility] [address] [id number] [place] [address] Sep, [facility] [place] [facility] [address] [id number] [place] [address] Sep, [facility] [place] [facility] [address] [id number] [place] [address] Sep, [facility] [place] [facility] [address] [id number] [place] [address] Aug, [facility] [place] [facility] [address] [id number] [place] [address] Aug, [facility] [place] [facility] [address] [id number] [place] [address] Aug, [facility] [place] [facility] [address] [id number] [place] [address] Aug, [facility] [place] [facility] [address] [id number] [place] [address] Aug, [facility] [place] [facility] [address] [id number] [place] [address] Aug, [facility] [place] [facility] [address] [id number] [place] [address] Aug, [facility] [place] [facility] [address] [id number] [place] [address] Aug, [facility] [place] [facility] [address] [id number] [place] [address] Aug, [facility] [place] [facility] [address] [id number] [place] [address] Aug, [facility] [place] [facility] [address] [id number] [place] [address] Aug, [facility] [place] [facility] [address] [id number] [place] [address] Aug, [facility] [place] [facility] [address] [id number] [place] [address] Aug, [facility] [place] [facility] [address] [id number] [place] [address] Jul, [facility] [place] [facility] [address] [id number] [place] [address] Jul, [facility] [place] [facility] [address] [id number] [place] [address] Jul, [facility] [place] [facility] [address] [id number] [place] [address] Jul, [facility] [place] [facility] [address] [id number] [place] [address] Jun, [facility] [place] [facility] [address] [id number] [place] [address] Jun, [facility] [place] [facility] [address] [id number] [place] [address] Jun, [facility] [place] [facility] [address] [id number] [place] [address] Jun, [facility] [place] [facility] [address] [id number] [place] [address] Jun, [facility] [place] [facility] [address] [id number] [place] [address] Jun, [facility] [place] [facility] [address] [id number] [place] [address] May, [facility] [place] [facility] [address] [id number] [place] [address] May, [facility] [place] [facility] [address] [id number] [place] [address] May, [facility] [place] [facility] [address] [id number] [place] [address] May, [facility] [place] [facility] [address] [id number] [place] [address] Apr, [facility] [place] [facility] [address] [id number] [place] [address] Apr, [facility] [place] [facility] [address] [id number] [place] [address] March, [facility] [place] [facility] [address] [id number] [place] [address] March, [facility] [place] [facility] [address] [id number] [place] [address] March, [facility] [place] [facility] [address] [id number] [place] [address] March, [facility] [place] [facility] [address] [id number] [place] [address] March, [facility] [place] [facility] [address] [id number] [place] [address] March, [facility] [place] [facility] [address] [id number] [place] [address] Feb, [facility] [place] [facility] [address] [id number] [place] [address] Feb, [facility] [place] [facility] [address] [id number] [place] [address] Dec, [facility] [place] [facility] [address] [id number] [place] [address] Dec, [facility] [place] [facility] [address] [id number] [place] [address] Nov, [facility] [place] [facility] [address] [id number] [place] [address] Nov, [facility] [place] [facility] [address] [id number] [place] [address] Sep, [facility] [place] [facility] [address] [id number] [place] [address] 14 Sep, 2013 [facility] [place] [facility] [address] [id number] [place] [address] 06 Sep, 2013 [facility] [place] [facility] [address] [id number] [place] [address] 06 Sep, 2013 [facility] [place] [facility] [address] [id number] [place] [address] 05 Sep, 2013 [facility] [place] [facility] [address] [id number] [place] [address] Sep, [facility] [place] [facility] [address] [id number] [place] [address] Sep, [facility] [place] [facility] [address] [id number] [place] [address] Aug, [facility] [place] [facility] [address] [id number] [place] [address] Aug, [facility] [place] [facility] [address] [id number] [place] [address] Aug, [facility] [place] [facility] [address] [id number] [place] [address] Aug, [facility] [place] [facility] [address] [id number] [place] [address] Aug, [facility] [place] [facility] [address] [id number] [place] [address] Aug, [facility] [place] [facility] [address] [id number] [place] [address] Jul, [facility] [place] [facility] [address] [id number] [place] [address] 19 Jul, 2013 [facility] [place] [facility] [address] [id number] [place] [address] 16 Jul, 2013 [facility] [place] [facility] [address] [id number] [place] [address] Jul, [facility] [place] [facility] [address] [id number] [place] [address] Jun, [facility] [place] [facility] [address] [id number] [place] [address] Jun, [facility] [place] [facility] [address] [id number] [place] [address] Jun, [facility] [place] [facility] [address] [id number] [place] [address] Jun, [facility] [place] [facility] [address] [id number] [place] [address] Jun, [facility] [place] [facility] [address] [id number] [place] [address] Jun, [facility] [place] [facility] [address] [id number] [place] [address] Jun, [facility] [place] [facility] [address] [id number] [place] [address] May, [facility] [place] [facility] [address] [id number] [place] [address] May, [facility] [place] [facility] [address] [id number] [place] [address] May, [facility] [place] [facility] [address] [id number] [place] [address] May, [facility] [place] [facility] [address] [id number] [place] [address] May, [facility] [place] [facility] [address] [id number] [place] [address] May, [facility] [place] [facility] [address] [id number] [place] [address] May, [facility] [place] [facility] [address] [id number] [place] [address] Apr, [facility] [place] [facility] [address] [id number] [place] [address] 27 Apr, 2013 [facility] [place] [facility] [address] [id number] [place] [address] 27 Apr, 2013 [facility] [place] [facility] [address] [id number] [place] [address] 26 Apr, 2013 [facility] [place] [facility] [address] [id number] [place] [address] 20 Apr, 2013 [facility] [place] [facility] [address] [id number] [place] [address] 18 Apr, 2013 [facility] [place] [facility] [address] [id number] [place] [address] 18 Apr, 2013 [facility] [place] [facility] [address] [id number] [place] [address] 18 Apr, 2013 [facility] [place] [facility] [address] [id number] [place] [address] 17 Apr, 2013 [facility] [place] [facility] [address] [id number] [place] [address] 14 Apr, 2013 [facility] [place] [facility] [address] [id number] [place] [address] 14 Apr, 2013 [facility] [place] [facility] [address] [id number] [place] [address] 11 Apr, 2013 [facility] [place] [facility] [address] [id number] [place] [address] 10 Apr, 2013 [facility] [place] [facility] [address] [id number] [place] [address] 09 Apr, 2013 [facility] [place] [facility] [address] [id number] [place] [address] 07 Apr, 2013 [facility] [place] [facility] [address] [id number] [place] [address] 06 Apr, 2013 [facility] [place] [facility] [address] [id number] [place] [address] Apr, [facility] [address] [id number] [place] [address] Apr, [facility] [place] [facility] [address] [id number] [place] [address] Apr, [facility] [address] [id number] [place] [address] March, [facility] [place] [facility] [address] [id number] [place] [address] March, [facility] [address] [id number] [place] [address] March, [facility] [place] [facility] [address] [id number] [place] [address] March, [facility] [address] [id number] [place] [address] March, [facility] [address] [id number] [place] [address] March, [facility] [place] [facility] [address] [id number] [place] [address] March, [facility] [address] [id number] [place] [address] Feb, [facility] [place] [facility] [address] [id number] [place] [address] Feb, [facility] [place] [facility] [address] [id number] [place] [address] 27 Jan, 2013 [facility] [place] [facility] [address] [id number] [place] [address] 18 Jan, 2013 [facility] [place] [facility] [address] [id number] [place] [address] 15 Jan, 2013 [facility] [place] [facility] [address] [id number] [place] [address] 14 Jan, 2013 [facility] [place] [facility] [address] [id number] [place] [address] 13 Jan, 2013 [facility] [address] [id number] [place] [address] 12 Jan, 2013 [facility] [place] [facility] [address] [id number] [place] [address] 11 Jan, 2013 [facility] [address] [facility] [id number] [place] [address] 09 Jan, 2013 [facility] [place] [facility] [address] [id number] [place] [address] 08 Jan, 2013 [facility] [address] [id number] [place] [address] 07 Jan, 2013 [facility] [place] [facility] [address] [id number] [place] [address] 06 Jan, 2013 [facility] [address] [facility] [id number] [place] [address] 17 Nov, 2012 [facility] [address] [id number] [place] [address] Oct, [facility] [address] [id number] [place] [address] Oct, [facility] [address] [facility] [id number] [place] [address] Oct, [facility] [address] [id number] [place] [address] Oct, [facility] [place] [facility] [address] [id number] [place] [address] 30 Sep, 2012 [facility] [place] [facility] [address] [id number] [place] [address] 30 Sep, 2012 [facility] [place] [facility] [address] [facility] [id number] [place] [address] 21 Sep, 2012 [facility] [place] [facility] [address] [facility] [id number] [place] [address] 16 Sep, 2012 [facility] [place] [facility] [address] [id number] [place] [address] 16 Sep, 2012 [facility] [place] [facility] [address] [id number] [place] [address] Sep, [facility] [place] [facility] [address] [id number] [place] [address] Sep, [facility] [place] [facility] [address] [id number] [place] [address] Sep, [facility] [place] [facility] [address] [id number] [place] [address] Sep, [facility] [place] [facility] [address] [id number] [place] [address] Sep, [facility] [place] [facility] [address] [id number] [place] [address] Sep, [facility] [place] [facility] [address] [id number] [place] [address] Aug, [facility] [place] [facility] [address] [id number] [place] [address] Aug, [facility] [place] [facility] [address] [id number] [place] [address] Aug, [facility] [place] [facility] [address] [id number] [place] [address] 28 Jul, 2012 [facility] [place] [facility] [address] [id number] [place] [address] 25 Jul, 2012 [facility] [place] [facility] [address] [id number] [place] [address] 19 Jul, 2012 [facility] [place] [facility] [address] [id number] [place] [address] 17 Jul, 2012 [facility] [place] [facility] [address] [id number] [place] [address] 20 Jun, 2012 [facility] [place] [facility] [address] [id number] [place] [address] 16 Jun, 2012 [facility] [place] [facility] [address] [id number] [place] [address] 15 Jun, 2012 [facility] [place] [facility] [address] [id number] [place] [address] 15 Jun, 2012 [facility] [place] [facility] [address] [id number] [place] [address] 13 Jun, 2012 [facility] [place] [facility] [address] [id number] [place] [address] March, [facility] [place] [facility] [address] [id number] [place] [address] 04 Feb, 2012 [facility] [place] [facility] [address] [id number] [place] [address] 28 Jan, 2012 [facility] [place] [facility] [address] [id number] [place] [address] Jan, [facility] [place] [facility] [address] [id number] [place] [address] Jan, [facility] [place] [facility] [address] [id number] [place] [address] 14 Jan, 2012 [facility] [place] [facility] [address] [id number] [place] [address] 14 Jan, 2012 [facility] [place] [facility] [address] [id number] [place] [address] 14 Jan, 2012 [facility] [place] [facility] [address] [id number] [place] [address] 28 Dec, 2011 [facility] [place] [facility] [address] [id number] [place] [address] 27 Dec, 2011 [facility] [place] [facility] [address] [id number] [place] [address] 23 Dec, 2011 [facility] [place] [facility] [address] [id number] [place] [address] Dec, [facility] [place] [facility] [id number] [address] 20 Dec, 2011 [facility] [id number] [address] Dec, [facility] [id number] [address] 17 Dec, 2011 [facility] [id number] [address] 16 Dec, 2011 [facility] [id number] [address] Nov, [facility] [id number] [place] [address] Oct, [facility] [id number] [address] Sep, [facility] [id number] [place] [address] Sep, [facility] [id number] [address] Sep, [facility] [id number] [address] Sep, [facility] [id number] [address] Sep, [facility] [id number] [address] Sep, [facility] [id number] [address] Jan, [facility] [id number] [address] Apr, IMMUNIZATIONS No Known Immunizations SOCIAL HISTORY Never Assessed REASON FOR VISIT EMR-[facility] PLAN OF CARE VITAL SIGNS MEDICATIONS Unknown [...] History Left ovary removed 12/2017 Hospitalization History [place] Admission x4 2009 most recent admission Hospitalization History [facility]; overdose 2010 Hospitalization History child 11/29/2016 Hospitalization History [facility] 02/2019
--- OUTSIDE RECORDS SUMMARY | 2019-05-27 20:49 | XMS REPORT ---
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 Name Role Phone Migration, Doctor Unavailable Unavailable PROBLEMS Type Condition ICD9-CM Code OAX59-CU Code Onset Dates Condition Status SNOMED Code Problem Generalized anxiety disorder F41.1 Active 79076358 Problem Bipolar disorder, current episode mixed, moderate F31.62 Active 512357442 Problem Acute non intractable tension-type headache G44.209 Active 523678579 Problem Constipation K59.00 Active 96149570 Problem Post traumatic stress disorder F43.10 Active 64309396 Problem Borderline personality disorder F60.3 Active 77679939 Problem Endometriosis N80.9 Active 542175726 Problem Acute right-sided low back pain with right-sided sciatica M54.41 Active [id number] ALLERGIES No Information ENCOUNTERS Encounter Location Date Diagnosis [facility] [id number] [place] [address] Feb, [facility] [address] [address] Feb, [facility] [address] [address] Feb, Bipolar disorder, current episode mixed, moderate F31.62 [facility] [id number] [place] [address] Jan, Dehydration E86.0 and Back muscle spasm M62.830 [facility] [id number] [place] [address] Jan, Bipolar disorder, current episode mixed, moderate F31.62 ; Post traumatic stress disorder F43.10 ; Borderline personality disorder F60.3 and Other fdc (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 Z79.899 [facility] [address] [address] Jan, Cough R05 and Viral upper respiratory tract infection J06.9 [place] [id number] [place] [address] Jan, Bipolar disorder, current episode mixed, moderate F31.62 [place] [id number] [place] [address] 08 Dec, 2018 Bipolar disorder, current episode mixed, moderate F31.62 [place] [address] [address] Nov, Bipolar disorder, current episode mixed, moderate F31.62 [facility] [address] [address] Oct, Sore throat J02.9 [facility] [place] [id number] [place] [address] Oct, Abdominal pain R10.9 ; Low back pain M54.5 ; Left shoulder pain M25.512 and Constipation K59.00 [place] [id number] [place] [address] Oct, Bipolar disorder, current episode mixed, moderate F31.62 ; Post traumatic stress disorder F43.10 and Borderline personality disorder F60.3 [place] [id number] [place] [address] Sep, Bipolar disorder, current episode mixed, moderate F31.62 [place] [id number] [place] [address] Aug, Bipolar disorder, current episode mixed, moderate F31.62 [place] [id number] [place] [address] Jul, Thrombophlebitis I80.9 and Pelvic pain R10.2 [place] [id number] [place] [address] 05 Jul, 2018 Bipolar disorder, current episode mixed, moderate F31.62 ; Post traumatic stress disorder F43.10 and Borderline personality disorder F60.3 [facility] [address] [place] [address] Jun, Bipolar disorder, current episode mixed, moderate F31.62 [facility] [id number] [place] [address] 13 May, 2018 Palpitations R00.2 [place] [id number] [place] [address] 13 May, 2018 Palpitations R00.2 [place] [id number] [place] [address] 12 May, 2018 Palpitations R00.2 and Frequent bowel movements R19.4 [place] [id number] [place] [address] 05 May, 2018 Bipolar disorder, current episode mixed, moderate F31.62 ; Post traumatic stress disorder F43.10 and Borderline personality disorder F60.3 [facility] [id number] [place] [id number] 15 Apr, 2018 Dental examination Z01.20 [facility] [id number] [place] [address] 15 Apr, 2018 [facility] [id number] [place] [address] 15 Apr, 2018 Tooth pain K08.89 [place] [id number] [place] [address] 15 Apr, 2018 Dental examination Z01.20 [facility] [id number] [place] [address] 06 Apr, 2018 Bipolar disorder, current episode mixed, moderate F31.62 ; Post traumatic stress disorder F43.10 and Borderline personality disorder F60.3 [facility] [address] [place] [address] March, Abdominal pain R10.9 ; UTI symptoms R39.9 and Other microscopic hematuria R31.29 [place] [address] [place] [address] March, [facility] [id number] [place] [address] March, Bipolar disorder, current episode mixed, moderate F31.62 ; Post traumatic stress disorder F43.10 and Borderline personality disorder F60.3 [facility] [id number] [place] [address] Feb, Encounter for immunization Z23 [facility] [id number] [place] [address] 16 Feb, 2018 Bipolar disorder, current episode mixed, moderate F31.62 ; Post traumatic stress disorder F43.10 and Borderline personality disorder F60.3 [facility] [address] [place] [address] Feb, Bipolar disorder, current episode mixed, moderate F31.62 ; Post traumatic stress disorder F43.10 ; Borderline personality disorder F60.3 and Other fdc (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 Z79.899 [facility] [id number] [place] [address] Jan, Encounter for immunization Z23 [facility] [id number] [place] [address] Jan, [facility] [id number] [place] [address] Jan, Bipolar disorder, current episode mixed, moderate F31.62 [facility] [address] [place] [address] Jan, Lumbar back pain M54.5 [facility] [id number] [place] [address] 28 Dec, 2017 Low back pain M54.5 [facility] [id number] [place] [address] 13 Dec, 2017 Bipolar disorder, current episode mixed, moderate F31.62 [place] [address] [place] [address] Dec, Generalized anxiety disorder F41.1 and Bipolar disorder, current episode mixed, moderate F31.62 [facility] [id number] [place], [place] [address] Nov, Acute non intractable tension-type headache G44.209 [place] [address] [address] Nov, Bipolar disorder, current episode mixed, moderate F31.62 ; Post traumatic stress disorder F43.10 and Borderline personality disorder F60.3 [place] [address] [address] [address] Nov, Bipolar disorder, current episode mixed, moderate F31.62 [facility] [place] [address] [address] Nov, Abdominal pain R10.9 ; History of PCOS Z87.42 ; History of endometriosis Z87.42 and Pelvic pain R10.2 [place] [id number] [place] [address] Nov, [facility] [place] [id number] [place] [address] Oct, History of PCOS Z87.42 ; History of endometriosis Z87.42 and Pain R52 [place] [id number] [place] [address] Oct, Bipolar disorder, current episode mixed, moderate F31.62 ; Post traumatic stress disorder F43.10 and Borderline personality disorder F60.3 [place] [id number] [place] [address] Oct, Bipolar disorder, current episode mixed, moderate F31.62 [place] [id number] [place] [address] Sep, Bipolar disorder, current episode mixed, moderate F31.62 ; Post traumatic stress disorder F43.10 ; Borderline personality disorder F60.3 and Other intermediate manager (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 Z79.899 [place] [id number] [place] [address] 17 Sep, 2017 Bipolar disorder, current episode mixed, moderate F31.62 [facility] [id number] [place] [address] Sep, Endometriosis N80.9 and Acute right-sided low back pain with right- sided sciatica M54.41 [place] [id number] [place] [address] Aug, [place] [id number] [place] [address] Aug, Bipolar disorder, current episode mixed, moderate F31.62 ; Post traumatic stress disorder F43.10 and Borderline personality disorder F60.3 [place] [id number] [place] [address] Aug, Bipolar disorder, current episode mixed, moderate F31.62 ; Post traumatic stress disorder F43.10 and Borderline personality disorder F60.3 [place] [id number] [place] [address] 13 Jul, 2017 Bipolar disorder, current episode mixed, moderate F31.62 ; Post traumatic stress disorder F43.10 and Borderline personality disorder F60.3 [facility] [address] [place] [address] 11 Jul, 2017 Pharyngitis, unspecified etiology J02.9 and Streptococcal pharyngitis J02.0 [place] [id number] [place] [address] 16 Jun, 2017 Bipolar disorder, current episode mixed, moderate F31.62 ; Post traumatic stress disorder F43.10 and Borderline personality disorder F60.3 [place] [address] [place] [address] May, [place] [address] [address] May, [facility] [id number] [place] [address] May, Bipolar disorder, current episode mixed, moderate F31.62 and Generalized anxiety disorder F41.1 [facility] [id number] [place] [address] March, Bipolar disorder, current episode mixed, moderate F31.62 and Generalized anxiety disorder F41.1 [facility] [id number] [place] [address] March, Pelvic pain R10.2 [facility] [id number] [place] [address] March, [facility] [id number] [place] [address] Feb, Bipolar disorder, current episode mixed, moderate F31.62 and Generalized anxiety disorder F41.1 [facility] [id number] [place] [address] Jan, [facility] [id number] [place] [address] Jan, Bipolar disorder, current episode mixed, moderate F31.62 [facility] [id number] [place] [address] Jan, Bipolar disorder, current episode mixed, moderate F31.62 [facility] [address] [place] [address] Jan, Bilateral low back pain without sciatica M54.5 [facility] [id number] [place] [id number] Jan, Dental caries K02.9 and Dental examination Z01.20 [facility] [id number] [place] [id number] 09 Jan, 2017 Encounter for dental examination and cleaning without abnormal findings Z01.20 [facility] [address] [place] [address] Jan, Bipolar disorder, current episode mixed, moderate F31.62 and Generalized anxiety disorder F41.1 [facility] [id number] [place] [address] Dec, [facility] [id number] [place] [address] Dec, Bipolar disorder, current episode mixed, moderate F31.62 and Generalized anxiety disorder F41.1 [place] [id number] [place] [address] Dec, Other fatigue R53.83 and Orthostatic hypotension I95.1 [facility] [address] [place] [id number] Nov, Dental examination Z01.20 [facility] [id number] [place] [address] Nov, Bronchitis J40 [place] [id number] [place] [address] Oct, Generalized anxiety disorder F41.1 [place] [id number] [place] [address] 14 Sep, 2016 Bipolar disorder, current episode mixed, moderate F31.62 and Generalized anxiety disorder F41.1 [place] [id number] [place] [address] 02 Sep, 2016 Bipolar disorder, current episode mixed, moderate F31.62 and Generalized anxiety disorder F41.1 [facility] [id number] [place] [address] 08 Jul, 2016 Upper respiratory tract infection, unspecified type J06.9 [place] [id number] [place] [address] Jun, Bipolar disorder, current episode mixed, moderate F31.62 and Generalized anxiety disorder F41.1 [place] [address] [address] Apr, [facility] [id number] [place] [address] Apr, Encounter for test, result positive Z32.01 [facility] [id number] [place] [address] March, [facility] [id number] [place] [address] March, Bipolar disorder, current episode mixed, moderate F31.62 and Generalized anxiety disorder F41.1 [facility] [id number] [place] [address] March, Bipolar disorder, current episode mixed, moderate F31.62 and Generalized anxiety disorder F41.1 [facility] [id number] [place] [address] March, [facility] [id number] [place] [address] March, [facility] [id number] [place] [address] Feb, [facility] [id number] [place] [address] Feb, [facility] [id number] [place] [address] Feb, Bipolar disorder, current episode mixed, moderate F31.62 and Generalized anxiety disorder F41.1 [facility] [address] [place] [address] Jan, Abdominal pain R10.9 [facility] [id number] [place] [address] 14 Jan, 2016 [facility] [address] [place] [address] Dec, Dental examination Z01.20 [place] [address] [place] [address] Dec, Dental examination Z01.20 and Dental caries K02.9 [place] [id number] [place] [address] Dec, Bipolar disorder, current episode mixed, moderate F31.62 and Generalized anxiety disorder F41.1 [place] [address] [address] Dec, [address] [address] Nov, Bipolar disorder, current episode mixed, moderate F31.62 ; Generalized anxiety disorder F41.1 and Seizure-like activity R56.9 [place] [address] [address] Oct, [address] [address] Oct, Bipolar disorder, current episode mixed, moderate F31.[address] [address] 14 Oct, 2015 Well woman exam Z01.419 [...] Tobacco use Z72.0 and Hot flashes N95.1 [place] [id number] [place] [address] 09 Oct, 2015 Seizure-like activity R56.9 and Irregular periods N92.[address] [address] Oct, Bipolar disorder, current episode mixed, moderate F31.62 ; Generalized anxiety disorder F41.1 and Underweight R63.6 [facility] [address] [address] Oct, [facility] [address] [address] Oct, Generalized anxiety disorder F41.1 and Unspecified mood [affective] disorder F39 [facility] [address] [address] Oct, Back pain M54.9 and Anxiety F41.9 [place] [address] [address] Oct, [facility] [address] [address] Sep, Arm pain, left M79.602 [place] [address] [address] Sep, [facility] [address] [id number] Sep, Dental examination Z01.20 and Dental caries K02.9 [place] [address] [address] Sep, Generalized anxiety disorder F41.1 and Unspecified episodic mood disorder F39 [place] [address] [address] Sep, Bilateral low back pain without sciatica M54.5 and Seizure-like activity R56.9 [place] [address] [address] Aug, [facility] [address] [address] Aug, [place] [address] [address] Aug, [facility] [address] [place] [address] Aug, Visual changes H53.9 and Bilateral low back pain without sciatica M54.5 [facility] [id number] [place] [address] Jul, [facility] [id number] [place] [address] Jun, Bipolar I disorder, most recent episode (or current) mixed, moderate 296.62 ; Generalized anxiety disorder 300.02 and High risk medication use V58.69 [facility] [id number] [place] [address] Jun, [facility] [id number] [place] [address] May, [facility] [id number] [place] [address] May, Bipolar I disorder, most recent episode (or current) mixed, moderate 296.62 and Generalized anxiety disorder 300.02 [facility] [id number] [place] [address] [id number] May, Dental examination V72.2 [facility] [id number] [place] [address] March, Bipolar I disorder, most recent episode (or current) mixed, moderate 296.62 and Generalized anxiety disorder 300.02 [facility] [id number] [place] [address] March, [facility] [id number] [place] [address] March, [facility] [id number] [place] [address] March, Underweight 783.22 ; Hand pain, right 729.5 and Reflux gastritis 535.40 [facility] [address] [address] 14 Feb, 2015 [facility] [place] [facility] [address] [id number] [place] [address] 13 Feb, 2015 [facility] [place] [facility] [address] [id number] [place] [address] 18 Jan, 2015 [facility] [place] [facility] [address] [id number] [place] [address] 18 Jan, 2015 [facility] [place] [facility] [address] [id number] [place] [address] 16 Jan, 2015 [facility] [place] [facility] [address] [id number] [place] [address] 16 Jan, 2015 [facility] [place] [facility] [address] [id number] [place] [address] Jan, [facility] [place] [facility] [address] [id number] [place] [address] Jan, [facility] [place] [facility] [address] [id number] [place] [address] 05 Jan, 2015 [facility] [place] [facility] [address] [id number] [place] [address] 05 Jan, 2015 [facility] [place] [facility] [address] [id number] [place] [address] 04 Jan, 2015 [facility] [place] [facility] [address] [id number] [address] Jan, [facility] [place] [facility] [address] [id number], [place] [address] Jan, [facility] [place] [facility] [address] [id number] [place] [address] Jan, [facility] [place] [facility] [address] [id number] [place] [address] Dec, [facility] [place] [facility] [address] [id number] [place] [address] Dec, [facility] [place] [facility] [address] [id number] [place] [address] 19 Dec, 2014 [facility] [place] [facility] [address] [id number] [place] [address] Dec, 2014 [facility] [place] [facility] [address] [id number] [place] [address] 18 Dec, 2014 [facility] [place] [facility] [address] [facility] [id number] [place] [address] 17 Dec, 2014 [facility] [place] [facility] [address] [id number] [place] [address] 17 Dec, 2014 [facility] [place] [facility] [address] [facility] [id number] [place] [address] 16 Dec, 2014 [facility] [place] [facility] [address] [facility] [id number] [place] [address] 16 Dec, 2014 [facility] [place] [facility] [address] [facility] [id number] [place] [address] Dec, 2014 [facility] [place] [facility] [address] [facility] [id number] [place] [address] Dec, 2014 [facility] [place] [facility] [address] [facility] [id number] [place] [address] 05 Dec, 2014 [facility] [place] [facility] [address] [id number] [place] [address] Dec, 2014 [facility] [place] [facility] [address] [facility] [id number] [address] Dec, 2014 [facility] [place] [facility] [address] [facility] [id number] [place] [address] Dec, 2014 [facility] [place] [facility] [address] [facility] [id number] [place] [address] Dec, 2014 [facility] [place] [facility] [address] [facility] [id number] [place] [address] Dec, 2014 [facility] [place] [facility] [address] [facility] [id number] [place] [address] Dec, [facility] [place] [facility] [address] [id number] [place] [address] Dec, [facility] [place] [facility] [address] [id number] [place] [address] Nov, [facility] [place] [facility] [address] [id number] [place] [address] Nov, [facility] [place] [facility] [address] [id number] [place] [address] Nov, [facility] [place] [facility] [address] [id number] [place] [address] Nov, [facility] [place] [facility] [address] [id number] [place] [address] Nov, [facility] [place] [facility] [address] [id number] [place] [address] Nov, [facility] [facility] [id number] [id number] Nov, [facility] [place] [facility] [address] [id number] [place] [address] Nov, [facility] [place] [facility] [address] [facility] [id number] [place] [address] Nov, [facility] [place] [facility] [address] [id number] [id number] Nov, [facility] [place] [facility] [address] [id number], [place] [address] Nov, [facility] [place] [facility] [address] [id number] [place] [address] Nov, [facility] [place] [facility] [address] [id number] [place] [address] Oct, [facility] [place] [facility] [address] [id number] [place] [address] Oct, [facility] [place] [facility] [address] [id number] [place] [address] 30 Oct, 2014 [facility] [place] [facility] [address] [id number] [place] [address] Oct, [facility] [place] [facility] [address] [id number] [place] [address] Oct, [facility] [place] [facility] [address] [id number] [place] [address] Oct, [facility] [place] [facility] [address] [id number] [place] [address] Oct, [facility] [place] [facility] [address] [id number] [place] [address] Oct, [facility] [place] [facility] [address] [id number] [place] [address] Oct, [facility] [place] [facility] [address] [id number] [place] [address] Oct, [facility] [place] [facility] [address] [id number] [place] [address] Oct, [facility] [place] [facility] [address] [id number] [place] [address] Oct, [facility] [place] [facility] [address] [id number] [place] [address] Sep, [facility] [place] [facility] [address] [id number] [place] [address] Sep, [facility] [place] [facility] [address] [id number] [place] [address] Sep, [facility] [place] [facility] [address] [id number] [place] [address] Sep, [facility] [place] [facility] [address] [id number] [place] [address] Sep, [facility] [place] [facility] [address] [id number] [place] [address] Sep, [facility] [place] [facility] [address] [id number] [place] [address] Sep, [facility] [place] [facility] [address] [id number] [place] [address] Sep, [facility] [place] [facility] [address] [id number] [place] [address] Aug, [facility] [place] [facility] [address] [id number] [place] [address] Aug, [facility] [place] [facility] [address] [id number] [place] [address] Aug, [facility] [place] [facility] [address] [id number] [place] [address] Aug, [facility] [place] [facility] [address] [id number] [place] [address] Aug, [facility] [place] [facility] [address] [id number] [place] [address] Aug, [facility] [place] [facility] [address] [id number] [place] [address] Aug, [facility] [place] [facility] [address] [id number] [place] [address] Aug, [facility] [place] [facility] [address] [id number], [place] [address] Aug, [facility] [place] [facility] [address] [id number], [place] [address] Aug, [facility] [place] [facility] [address] [id number], [place] [address] Aug, [facility] [place] [facility] [address] [id number], [place] [address] Aug, [facility] [place] [facility] [address] [id number], [place] [address] Aug, [facility] [place] [facility] [address] [id number] [place] [address] Jul, [facility] [place] [facility] [address] [id number] [place] [address] Jul, [facility] [place] [facility] [address] [id number] [place] [address] Jul, [facility] [place] [facility] [address] [id number] [place] [address] Jul, [facility] [place] [facility] [address] [id number] [place] [address] Jun, [facility] [place] [facility] [address] [id number] [place] [address] Jun, [facility] [place] [facility] [address] [id number] [place] [address] Jun, [facility] [place] [facility] [address] [id number] [place] [address] Jun, [facility] [place] [facility] [address] [id number] [place] [address] Jun, [facility] [place] [facility] [address] [id number] [place] [address] Jun, [facility] [place] [facility] [address] [id number] [place] [address] May, [facility] [place] [facility] [address] [id number] [place] [address] May, [facility] [place] [facility] [address] [id number] [place] [address] May, [facility] [place] [facility] [address] [id number] [place] [address] May, [facility] [place] [facility] [address] [id number] [place] [address] Apr, [facility] [place] [facility] [address] [id number] [place] [address] Apr, [facility] [place] [facility] [address] [id number] [place] [address] March, [facility] [place] [facility] [address] [id number] [place] [address] March, [facility] [facility] [address] [id number] [place] [address] March, [facility] [place] [facility] [address] [id number] [place] [address] March, [facility] [address] [id number] [place] [address] March, [facility] [place] [facility] [address] [id number] [place] [address] March, [facility] [address] [id number] [place] [address] Feb, [facility] [place] [facility] [address] [id number] [place] [address] Feb, [facility] [place] [facility] [address] [id number] [place] [address] Dec, [facility] [facility] [address] [id number] [place] [address] Dec, [facility] [address] [id number] [place] [address] Nov, [facility] [facility] [address] [id number] [place] [address] Nov, [facility] [place] [facility] [address] [id number] [place] [address] Sep, [facility] [place] [facility] [address] [id number] [place] [address] Sep, [facility] [facility] [address] [id number] [place] [address] Sep, [facility] [place] [facility] [address] [id number], [place] [address] Sep, [facility] [place] [facility] [address] [id number] [place] [address] Sep, [facility] [place] [facility] [address] [id number] [place] [address] Sep, [facility] [place] [facility] [address] [id number] [place] [address] Sep, [facility] [place] [facility] [address] [id number] [place] [address] Aug, [facility] [place] [facility] [address] [id number] [place] [address] Aug, [facility] [place] [facility] [address] [id number] [place] [address] Aug, [facility] [place] [facility] [address] [id number] [place] [address] Aug, [facility] [place] [facility] [address] [id number] [place] [address] Aug, [facility] [place] [facility] [address] [id number] [place] [address] Aug, [facility] [place] [facility] [address] [id number] [place] [address] Jul, [facility] [place] [facility] [address] [id number], [place] [address] 19 Jul, 2013 [facility] [place] [facility] [address] [id number], [place] [address] 16 Jul, 2013 [facility] [place] [facility] [address] [id number] [place] [address] 13 Jul, 2013 [facility] [place] [facility] [address] [id number] [place] [address] Jun, [facility] [place] [facility] [address] [id number] [place] [address] Jun, [facility] [place] [facility] [address] [id number] [place] [address] Jun, [facility] [address] [id number] [place] [address] Jun, [facility] [place] [facility] [address] [id number] [place] [address] Jun, [facility] [place] [facility] [address] [id number] [place] [address] Jun, [facility] [place] [facility] [address] [id number] [place] [address] Jun, [facility] [place] [facility] [address] [id number] [place] [address] May, [facility] [facility] [address] [id number] [place] [address] May, [facility] [place] [facility] [address] [id number] [place] [address] May, [facility] [facility] [address] [id number] [place] [address] May, [facility] [facility] [address] [id number] [place] [address] May, [facility] [facility] [address] [id number] [place] [address] May, [facility] [place] [facility] [address] [id number] [place] [address] May, [facility] [place] [facility] [address] [id number] [place] [address] Apr, [facility] [place] [facility] [address] [id number] [place] [address] Apr, [facility] [facility] [address] [id number] [place] [address] Apr, [facility] [place] [facility] [address] [id number] [place] [address] Apr, [facility] [place] [facility] [address] [id number] [place] [address] 20 Apr, 2013 [facility] [place] [facility] [address] [id number] [place] [address] 18 Apr, 2013 [facility] [place] [facility] [address] [id number] [place] [address] 18 Apr, 2013 [facility] [place] [facility] [address] [id number] [place] [address] 18 Apr, 2013 [facility] [place] [facility] [address] [id number] [place] [address] 17 Apr, 2013 [facility] [place] [facility] [address] [id number] [place] [address] 14 Apr, 2013 [facility] [place] [facility] [address] [id number] [place] [address] 14 Apr, 2013 [facility] [place] [facility] [address] [id number], [place] [address] 11 Apr, 2013 [facility] [place] [facility] [address] [id number] [place] [address] 10 Apr, 2013 [facility] [place] [facility] [address] [id number], [place] [address] 09 Apr, 2013 [facility] [place] [facility] [address] [id number], [place] [address] 07 Apr, 2013 [facility] [place] [facility] [address] [id number], [place] [address] 06 Apr, 2013 [facility] [place] [facility] [address] [id number] [place] [address] 06 Apr, 2013 [facility] [place] [facility] [address] [id number], [place] [address] 05 Apr, 2013 [facility] [place] [facility] [address] [id number] [place] [address] 03 Apr, 2013 [facility] [place] [facility] [address] [id number] [place] [address] March, [facility] [address] [id number] [place] [address] March, [facility] [address] [id number] [place] [address] March, [facility] [address] [id number] [place] [address] March, [facility] [address] [id number] [place] [address] March, [facility] [address] [id number] [place] [address] March, [facility] [address] [id number] [place] [address] March, [facility] [address] [id number] [place] [address] Feb, [facility] [address] [id number] [place] [address] Feb, [facility] [address] [id number] [place] [address] 27 Jan, 2013 [facility] [address] [id number] [place] [address] 18 Jan, 2013 [facility] [address] [id number] [place] [address] 15 Jan, 2013 [facility] [address] [id number] [place] [address] 14 Jan, 2013 [facility] [address] [id number] [place] [address] 13 Jan, 2013 [facility] [place] [facility] [address] [id number] [place] [address] 12 Jan, 2013 [facility] [address] [id number] [place] [address] 11 Jan, 2013 [facility] [place] [facility] [address] [id number] [place] [address] 09 Jan, 2012 [facility] [place] [facility] [address] [id number] [place] [address] 08 Jan, 2013 [facility] [place] [facility] [address] [id number] [place] [address] 07 Jan, 2012 [facility] [place] [facility] [address] [id number] [place] [address] 06 Jan, 2013 [facility] [place] [facility] [address] [id number] [place] [address] 17 Nov, 2012 [facility] [place] [facility] [address] [id number] [place] [address] Oct, [facility] [place] [facility] [address] [id number] [place] [address] Oct, [facility] [place] [facility] [address] [id number] [place] [address] Oct, [facility] [place] [facility] [address] [id number] [place] [address] Oct, [facility] [place] [facility] [address] [id number] [place] [address] 30 Sep, 2012 [facility] [place] [facility] [address] [id number] [place] [address] 30 Sep, 2012 [facility] [place] [facility] [address] [id number] [place] [address] Sep, [facility] [place] [facility] [address] [id number] [place] [address] 16 Sep, 2012 [facility] [place] [facility] [address] [id number] [place] [address] 16 Sep, 2012 [facility] [place] [facility] [address] [id number] [place] [address] 16 Sep, 2012 [facility] [place] [facility] [address] [id number] [place] [address] Sep, [facility] [place] [facility] [address] [id number] [place] [address] Sep, [facility] [place] [facility] [address] [id number] [place] [address] Sep, [facility] [place] [facility] [address] [facility] [id number] [place] [address] Sep, [facility] [place] [facility] [address] [id number] [place] [address] Sep, [facility] [place] [facility] [address] [id number] [place] [address] Aug, [facility] [place] [facility] [address] [id number] [place] [address] Aug, [facility] [place] [facility] [address] [id number] [place] [address] Aug, [facility] [place] [facility] [address] [id number] [place] [address] 28 Jul, 2012 [facility] [place] [facility] [address] [id number] [place] [address] 25 Jul, 2012 [facility] [place] [facility] [address] [id number] [place] [address] 19 Jul, 2012 [facility] [place] [facility] [address] [id number], [place] [address] 17 Jul, 2012 [facility] [place] [facility] [address] [id number], [place] [address] 20 Jun, 2012 [facility] [place] [facility] [address] [id number] [place] [address] 16 Jun, 2012 [facility] [place] [facility] [address] [facility] [id number] [place] [address] 15 Jun, 2012 [facility] [place] [facility] [address] [id number] [place] [address] Jun, [facility] [place] [facility] [address] [id number] [place] [address] 13 Jun, 2012 [facility] [address] [id number] [place] [address] 18 Mar, 2012 [facility] [place] [facility] [address] [id number] [place] [address] 04 Feb, 2012 [facility] [address] [id number] [place] [address] 28 Jan, 2012 [facility] [place] [facility] [address] [id number] [place] [address] 27 Jan, 2012 [facility] [address] [id number] [place] [address] 22 Jan, 2012 [facility] [place] [facility] [address] [id number] [place] [address] 14 Jan, 2012 [facility] [address] [id number] [place] [address] 14 Jan, 2012 [facility] [address] [id number] [place] [address] 14 Jan, 2012 [facility] [place] [facility] [address] [id number] [place] [address] 28 Dec, 2011 [facility] [address] [id number] [place] [address] 27 Dec, 2011 [facility] [place] [facility] [address] [id number] [place] [address] 23 Dec, 2011 [facility] [address] [id number] [place] [address] 21 Dec, 2011 [facility] [place] [facility] [address] [id number] [place] [address] 20 Dec, 2011 [facility] [place] [facility] [address] [id number] [place] [address] 19 Dec, 2011 [facility] [place] [facility] [address] [id number] [place] [address] Dec, [facility] [address] [id number], [place] [address] Dec, [facility] [id number], [place] [address] Nov, [facility] [id number], [place] [address] Oct, [facility] [id number] [address] Sep, [facility] [id number] [place] [address] Sep, [facility] [id number] [place] [address] Sep, [facility] [id number] [place] [address] Sep, [facility] [id number] [address] Sep, [facility] [id number] [place] [address] Sep, [facility] [id number] [place] [address] Jan, [facility] [id number] [address] Apr, IMMUNIZATIONS No Known Immunizations SOCIAL HISTORY Never Assessed REASON FOR VISIT [facility] [place] [...] History Left ovary removed 12/2017 Hospitalization History [place] Admission x4 2009 most recent admission Hospitalization History [facility]; overdose 2010 Hospitalization History child 11/29/2016
--- OUTSIDE RECORDS SUMMARY | 2019-05-27 20:50 | XMS REPORT ---
Author Author Migration, Doctor Organization [facility] Address Unknown Phone Unavailable Care Team Providers Care Circle Edger Name Role Phone Migration, Doctor Unavailable Unavailable PROBLEMS Type Condition ICD9-CM Code NBL22-MC Code Onset Dates Condition Status SNOMED Code Problem Generalized anxiety disorder F41.1 Active 45841852 Problem Bipolar disorder, current episode mixed, moderate F31.62 Active 404123401 Problem Acute non intractable tension-type headache G44.209 Active 842072485 Problem Constipation K59.00 Active 46671793 Problem Post traumatic stress disorder F43.10 Active 25033394 Problem Borderline personality disorder F60.3 Active 44687674 Problem Endometriosis N80.9 Active 193611276 Problem Acute right-sided low back pain with right-sided sciatica M54.41 Active [id number] ALLERGIES No Information ENCOUNTERS Encounter Location Date Diagnosis [facility] [id number] [place] [address] Feb, [facility] [address] [address] Feb, Bipolar disorder, current episode mixed, moderate F31.62 [facility] [id number] [place] [address] Jan, Dehydration E86.0 and Back muscle spasm M62.830 [facility] [id number] [place] [address] Jan, Bipolar disorder, current episode mixed, moderate F31.62 ; Post traumatic stress disorder F43.10 ; Borderline personality disorder F60.3 and Other snf (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 Z79.899 [facility] [id number] [place] [address] Jan, Cough R05 and Viral upper respiratory tract infection J06.9 [facility] [address] [address] Jan, Bipolar disorder, current episode mixed, moderate F31.62 [facility] [id number] [place] [address] 08 Dec, 2018 Bipolar disorder, current episode mixed, moderate F31.62 [facility] [id number] [place] [address] Nov, Bipolar disorder, current episode mixed, moderate F31.62 [facility] [id number] [place] [address] Oct, Sore throat J02.9 [facility] [place] [address] [address] Oct, Abdominal pain R10.9 ; Low back pain M54.5 ; Left shoulder pain M25.512 and Constipation K59.00 [facility] [id number] [place] [address] Oct, Bipolar disorder, current episode mixed, moderate F31.62 ; Post traumatic stress disorder F43.10 and Borderline personality disorder F60.3 [facility] [id number] [place] [address] Sep, Bipolar disorder, current episode mixed, moderate F31.62 [facility] [id number] [place] [address] Aug, Bipolar disorder, current episode mixed, moderate F31.62 [facility] [id number] [place] [address] Jul, Thrombophlebitis I80.9 and Pelvic pain R10.2 [facility] [id number] [place] [address] 05 Jul, 2018 Bipolar disorder, current episode mixed, moderate F31.62 ; Post traumatic stress disorder F43.10 and Borderline personality disorder F60.3 [facility] [id number] [place] [address] Jun, Bipolar disorder, current episode mixed, moderate F31.62 [facility] [id number] [place] [address] May, Palpitations R00.2 [facility] [id number] [place] [address] May, Palpitations R00.2 [place] [address] [address] May, Palpitations R00.2 and Frequent bowel movements R19.4 [facility] [id number] [place] [address] 05 May, 2018 Bipolar disorder, current episode mixed, moderate F31.62 ; Post traumatic stress disorder F43.10 and Borderline personality disorder F60.3 [facility] [id number] [place] [id number] Apr, Dental examination Z01.20 [facility] [id number] [place] [address] Apr, [facility] [id number] [place] [address] Apr, Tooth pain K08.89 [facility] [facility] [id number] [place] [address] 15 Apr, 2018 Dental examination Z01.20 [facility] [id number] [place] [address] 06 Apr, 2018 Bipolar disorder, current episode mixed, moderate F31.62 ; Post traumatic stress disorder F43.10 and Borderline personality disorder F60.3 [facility] [id number] [place] [address] March, Abdominal pain R10.9 ; UTI symptoms R39.9 and Other microscopic hematuria R31.29 [facility] [id number] [place] [address] March, [facility] [id number] [place] [address] March, Bipolar disorder, current episode mixed, moderate F31.62 ; Post traumatic stress disorder F43.10 and Borderline personality disorder F60.3 [facility] [id number] [place] [address] Feb, Encounter for immunization Z23 [facility] [address] [address] Feb, Bipolar disorder, current episode mixed, moderate F31.62 ; Post traumatic stress disorder F43.10 and Borderline personality disorder F60.3 [facility] [id number] [place] [address] Feb, Bipolar disorder, current episode mixed, moderate F31.62 ; Post traumatic stress disorder F43.10 ; Borderline personality disorder F60.3 and Other snf (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 Z79.899 [place] [address] [address] Jan, Encounter for immunization Z23 [facility] [id number] [place] [address] Jan, [facility] [id number] [place] [address] Jan, Bipolar disorder, current episode mixed, moderate F31.62 [facility] [id number] [place] [address] Jan, Lumbar back pain M54.5 [facility] [id number] [place] [address] Dec, Low back pain M54.5 [facility] [id number] [place] [address] Dec, Bipolar disorder, current episode mixed, moderate F31.62 [facility] [id number] [place] [address] Dec, Generalized anxiety disorder F41.1 and Bipolar disorder, current episode mixed, moderate F31.62 [facility] [id number] [place] [address] Nov, Acute non intractable tension-type headache G44.209 [facility] [facility] [id number] [place] [address] Nov, Bipolar disorder, current episode mixed, moderate F31.62 ; Post traumatic stress disorder F43.10 and Borderline personality disorder F60.3 [facility] [facility] [id number] [place] [address] Nov, Bipolar disorder, current episode mixed, moderate F31.62 [facility] [id number] [place] [address] Nov, Abdominal pain R10.9 ; History of PCOS Z87.42 ; History of endometriosis Z87.42 and Pelvic pain R10.2 [facility] [id number] [place] [address] Nov, [facility] [id number] [place] [address] Oct, History of PCOS Z87.42 ; History of endometriosis Z87.42 and Pain R52 [facility] [facility] [id number] [place] [address] Oct, Bipolar disorder, current episode mixed, moderate F31.62 ; Post traumatic stress disorder F43.10 and Borderline personality disorder F60.3 [place] [address] [place] [address] Oct, Bipolar disorder, current episode mixed, moderate F31.62 [place] [address] [address] Sep, Bipolar disorder, current episode mixed, moderate F31.62 ; Post traumatic stress disorder F43.10 ; Borderline personality disorder F60.3 and Other snf (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 Z79.899 [place] [address] [address] 17 Sep, 2017 Bipolar disorder, current episode mixed, moderate F31.62 [facility] [id number] [place] [address] Sep, Endometriosis N80.9 and Acute right-sided low back pain with right- sided sciatica M54.41 [facility] [facility] [id number] [place] [address] Aug, [facility] [facility] [id number] [place] [address] Aug, Bipolar disorder, current episode mixed, moderate F31.62 ; Post traumatic stress disorder F43.10 and Borderline personality disorder F60.3 [facility] [id number] [place] [address] 11 Aug, 2017 Bipolar disorder, current episode mixed, moderate F31.62 ; Post traumatic stress disorder F43.10 and Borderline personality disorder F60.3 [place] [address] [place] [address] 13 Jul, 2017 Bipolar disorder, current episode mixed, moderate F31.62 ; Post traumatic stress disorder F43.10 and Borderline personality disorder F60.3 [facility] [id number] [place] [address] 11 Jul, 2017 Pharyngitis, unspecified etiology J02.9 and Streptococcal pharyngitis J02.0 [facility] [address] [place] [address] 16 Jun, 2017 Bipolar disorder, current episode mixed, moderate F31.62 ; Post traumatic stress disorder F43.10 and Borderline personality disorder F60.3 [place] [address] [place] [address] May, [place] [address] [place] [address] May, [place] [id number] [place] [address] May, Bipolar disorder, current episode mixed, moderate F31.62 and Generalized anxiety disorder F41.1 [place] [id number] [place] [id number] March, Bipolar disorder, current episode mixed, moderate F31.62 and Generalized anxiety disorder F41.1 [place] [address] [address] March, Pelvic pain R10.2 [place] [address] [address] March, [place] [id number] [place] [address] Feb, Bipolar disorder, current episode mixed, moderate F31.62 and Generalized anxiety disorder F41.1 [place] [id number] [place] [address] Jan, [facility] [id number] [place] [address] Jan, Bipolar disorder, current episode mixed, moderate F31.62 [facility] [id number] [place] [address] Jan, Bipolar disorder, current episode mixed, moderate F31.62 [facility] [facility] [id number] [place] [address] Jan, Bilateral low back pain without sciatica M54.5 [facility] [id number] [place] [id number] Jan, Dental caries K02.9 and Dental examination Z01.20 [facility] [id number] [place] [id number] Jan, Encounter for dental examination and cleaning without abnormal findings Z01.20 [facility] [id number] [place] [address] Jan, Bipolar disorder, current episode mixed, moderate F31.62 and Generalized anxiety disorder F41.1 [facility] [id number] [place] [address] Dec, [facility] [id number] [place] [address] Dec, Bipolar disorder, current episode mixed, moderate F31.62 and Generalized anxiety disorder F41.1 [place] [id number] [place] [address] Dec, Other fatigue R53.83 and Orthostatic hypotension I95.1 [facility] [address] [id number] Nov, Dental examination Z01.20 [facility] [id number] [place] [address] Nov, Bronchitis J40 [place] [id number] [place] [address] Oct, Generalized anxiety disorder F41.1 [place] [id number] [place] [address] 14 Sep, 2016 Bipolar disorder, current episode mixed, moderate F31.62 and Generalized anxiety disorder F41.1 [place] [id number] [place] [address] 02 Sep, 2016 Bipolar disorder, current episode mixed, moderate F31.62 and Generalized anxiety disorder F41.1 [facility] [address] [place] [address] 08 Jul, 2016 Upper respiratory tract infection, unspecified type J06.9 [facility] [id number] [place] [address] Jun, Bipolar disorder, current episode mixed, moderate F31.62 and Generalized anxiety disorder F41.1 [place] [id number] [place] [address] Apr, [place] [address] [address] Apr, Encounter for test, result positive Z32.01 [facility] [id number] [place] [address] March, [facility] [id number] [place] [address] March, Bipolar disorder, current episode mixed, moderate F31.62 and Generalized anxiety disorder F41.1 [facility] [id number] [place] [address] March, Bipolar disorder, current episode mixed, moderate F31.62 and Generalized anxiety disorder F41.1 [facility] [id number] [place] [address] March, [facility] [id number] [place] [address] March, [facility] [id number] [place] [address] Feb, [facility] [id number] [place] [address] Feb, [facility] [id number] [place] [address] Feb, Bipolar disorder, current episode mixed, moderate F31.62 and Generalized anxiety disorder F41.1 [facility] [id number] [place] [address] Jan, Abdominal pain R10.9 [facility] [id number] [place] [address] Jan, [facility] [id number] [place] [address] Dec, Dental examination Z01.20 [facility] [address] [place] [address] 22 Feb, 2016 Dental examination Z01.20 and Dental caries K02.9 [place] [address] [place] [address] 15 Dec, 2015 Bipolar disorder, current episode mixed, moderate F31.62 and Generalized anxiety disorder F41.1 [place] [address] [place] [address] 15 Dec, 2015 [place] [address] [address] Nov, Bipolar disorder, current episode mixed, moderate F31.62 ; Generalized anxiety disorder F41.1 and Seizure-like activity R56.9 [place] [id number] [place] [address] Oct, [place] [id number] [place] [address] Oct, Bipolar disorder, current episode mixed, moderate F31.62 [place] [id number] [place] [address] 14 Oct, 2015 Well woman exam Z01.419 [...] Tobacco use Z72.0 and Hot flashes N95.1 [place] [address] [place] [address] 09 Oct, 2015 Seizure-like activity R56.9 and Irregular periods N92.6 [place] [address] [place] [address] 07 Oct, 2015 Bipolar disorder, current episode mixed, moderate F31.62 ; Generalized anxiety disorder F41.1 and Underweight R63.6 [facility] [address] [place] [address] Oct, [facility] [address] [address] Oct, Generalized anxiety disorder F41.1 and Unspecified mood [affective] disorder F39 [facility] [id number] [place] [address] Oct, Back pain M54.9 and Anxiety F41.9 [facility] [id number] [place] [address] Oct, [facility] [address] [address] Sep, Arm pain, left M79.602 [facility] [address] [address] Sep, [facility] [address] [id number] Sep, Dental examination Z01.20 and Dental caries K02.9 [facility] [id number] [place] [address] Sep, Generalized anxiety disorder F41.1 and Unspecified episodic mood disorder F39 [facility] [id number] [place] [address] Sep, Bilateral low back pain without sciatica M54.5 and Seizure-like activity R56.9 [facility] [id number] [place] [address] Aug, [facility] [address] [address] Aug, [facility] [id number] [place] [address] Aug, [facility] [address] [address] Aug, Visual changes H53.9 and Bilateral low back pain without sciatica M54.5 [facility] [address] [place] [address] Jul, [facility] [id number] [place] [address] Jun, Bipolar I disorder, most recent episode (or current) mixed, moderate 296.62 ; Generalized anxiety disorder 300.02 and High risk medication use V58.69 [facility] [id number] [place] [address] Jun, [facility] [id number] [place] [address] May, [facility] [id number] [place] [address] May, Bipolar I disorder, most recent episode (or current) mixed, moderate 296.62 and Generalized anxiety disorder 300.02 [facility] [id number] [place] [id number] May, Dental examination V72.2 [facility] [id number] [place] [address] March, Bipolar I disorder, most recent episode (or current) mixed, moderate 296.62 and Generalized anxiety disorder 300.02 [facility] [id number] [place] [address] March, [facility] [id number] [place] [address] March, [facility] [id number] [place] [address] March, Underweight 783.22 ; Hand pain, right 729.5 and Reflux gastritis 535.40 [facility] [id number] [place] [address] 14 Feb, 2015 [facility] [address] [address] 13 Feb, 2015 [facility] [place] [facility] [address] [id number] [place] [address] 18 Jan, 2015 [facility] [place] [facility] [address] [id number] [place] [address] 18 Jan, 2015 [facility] [place] [facility] [address] [id number] [place] [address] 16 Jan, 2015 [facility] [place] [facility] [address] [id number] [place] [address] 16 Jan, 2015 [facility] [place] [facility] [address] [id number] [place] [address] Jan, [facility] [place] [facility] [address] [id number] [place] [address] Jan, [facility] [place] [facility] [address] [id number] [place] [address] 05 Jan, 2015 [facility] [place] [facility] [address] [id number] [place] [address] 05 Jan, 2015 [facility] [place] [facility] [address] [id number] [place] [address] Jan, [facility] [place] [facility] [address] [id number] [place] [address] Jan, [facility] [place] [facility] [address] [id number] [place] [address] Jan, [facility] [place] [facility] [address] [id number] [address] Jan, [facility] [place] [facility] [address] [id number] [place] [address] Dec, [facility] [place] [facility] [address] [id number] [place] [address] Dec, [facility] [place] [facility] [address] [id number] [place] [address] Dec, [facility] [place] [facility] [address] [id number] [place] [address] 19 Dec, 2014 [facility] [place] [facility] [address] [id number] [place] [address] 18 Dec, 2014 [facility] [place] [facility] [address] [id number] [place] [address] 17 Dec, 2014 [facility] [place] [facility] [address] [facility] [place] [id number] [place] [address] 17 Dec, 2014 [facility] [place] [facility] [address] [id number] [place] [address] 16 Dec, 2014 [facility] [place] [facility] [address] [id number] [place] [address] 16 Dec, 2014 [facility] [place] [facility] [address] [facility] [place] [id number] [place] [address] 05 Dec, 2014 [facility] [place] [facility] [address] [facility] [place] [id number] [place] [address] 05 Dec, 2014 [facility] [place] [facility] [address] [facility] [place] [id number] [place] [address] 05 Dec, 2014 [facility] [place] [facility] [address] [facility] [place] [id number] [place] [address] 05 Dec, 2014 [facility] [place] [facility] [address] [facility] [place] [id number] [place] [address] Dec, 2014 [facility] [place] [facility] [address] [facility] [id number] [address] Dec, 2014 [facility] [place] [facility] [address] [facility] [place] [id number] [place] [address] Dec, 2014 [facility] [place] [facility] [address] [facility] [place] [id number] [place] [address] 04 Dec, 2014 [facility] [place] [facility] [address] [facility] [place] [id number] [place] [address] 03 Dec, 2014 [facility] [place] [facility] [address] [facility] [place] [id number] [place] [address] Dec, [facility] [place] [facility] [address] [id number] [place] [address] Nov, [facility] [place] [facility] [address] [id number] [place] [address] Nov, [facility] [place] [facility] [address] [id number] [place] [address] Nov, [facility] [facility] [address] [id number] [place] [address] Nov, [facility] [place] [facility] [address] [id number] [place] [address] Nov, [facility] [place] [facility] [address] [id number] [place] [address] Nov, [facility] [id number] [id number] Nov, [facility] [place] [facility] [address] [id number] [place] [address] Nov, [facility] [place] [facility] [address] [id number] [place] [address] Nov, [facility] [facility] [id number] [id number] Nov, [facility] [facility] [address] [id number] [place] [address] Nov, [facility] [place] [facility] [address] [id number] [address] Nov, [facility] [place] [facility] [address] [id number] [place] [address] Oct, [facility] [place] [facility] [address] [id number] [place] [address] Oct, [facility] [place] [facility] [address] [id number] [place] [address] Oct, [facility] [place] [facility] [address] [id number] [place] [address] 30 Oct, 2014 [facility] [place] [facility] [address] [id number] [place] [address] Oct, [facility] [place] [facility] [address] [id number] [place] [address] Oct, [facility] [place] [facility] [address] [id number] [place] [address] Oct, [facility] [place] [facility] [address] [id number] [place] [address] Oct, [facility] [place] [facility] [address] [id number] [place] [address] Oct, [facility] [place] [facility] [address] [id number] [place] [address] Oct, [facility] [place] [facility] [address] [id number] [place] [address] Oct, [facility] [place] [facility] [address] [id number] [place] [address] Oct, [facility] [place] [facility] [address] [id number] [place] [address] Sep, [facility] [address] [id number] [place] [address] Sep, [facility] [address] [id number] [place] [address] Sep, [facility] [place] [facility] [address] [id number] [place] [address] Sep, [facility] [address] [id number] [place] [address] Sep, [facility] [address] [id number] [place] [address] Sep, [facility] [facility] [address] [id number] [place] [address] Sep, [facility] [address] [id number] [place] [address] Sep, [facility] [address] [id number] [place] [address] Aug, [facility] [place] [facility] [address] [id number] [place] [address] Aug, [facility] [address] [id number] [place] [address] Aug, [facility] [address] [id number] [place] [address] Aug, [facility] [address] [id number] [place] [address] Aug, [facility] [address] [id number] [place] [address] Aug, [facility] [address] [id number] [place] [address] Aug, [facility] [address] [id number] [place] [address] Aug, [facility] [address] [id number] [place] [address] Aug, [facility] [address] [id number] [place] [address] Aug, [facility] [address] [id number] [place] [address] Aug, [facility] [address] [id number] [place] [address] Aug, [facility] [address] [id number] [place] [address] Aug, [facility] [address] [id number] [place] [address] Jul, [facility] [address] [id number] [place] [address] Jul, [facility] [address] [id number] [place] [address] Jul, [facility] [address] [id number] [place] [address] Jul, [facility] [address] [id number] [place] [address] Jun, [facility] [address] [id number] [place] [address] Jun, [facility] [address] [id number] [place] [address] Jun, [facility] [address] [id number] [place] [address] Jun, [facility] [address] [id number] [place] [address] Jun, [facility] [address] [id number] [place] [address] Jun, [facility] [address] [id number] [place] [address] May, [facility] [address] [id number] [place] [address] May, [facility] [address] [id number] [place] [address] May, [facility] [address] [id number] [place] [address] May, [facility] [address] [id number] [place] [address] Apr, [facility] [address] [id number] [place] [address] Apr, [facility] [address] [id number] [place] [address] March, [facility] [address] [id number] [place] [address] March, [facility] [address] [id number] [place] [address] March, [facility] [address] [id number] [place] [address] March, [facility] [address] [id number] [place] [address] March, [facility] [address] [id number] [place] [address] March, [facility] [address] [id number] [place] [address] Feb, [facility] [address] [id number] [place] [address] Feb, [facility] [address] [id number] [place] [address] Dec, [facility] [address] [id number] [place] [address] Dec, [facility] [address] [id number] [place] [address] Nov, [facility] [address] [id number] [place] [address] Nov, [facility] [address] [id number] [place] [address] Sep, [facility] [address] [id number] [place] [address] Sep, [facility] [address] [id number] [place] [address] Sep, [facility] [address] [id number] [place] [address] Sep, [facility] [address] [id number] [address] Sep, [facility] [address] [id number] [place] [address] Sep, [facility] [address] [id number] [place] [address] Sep, [facility] [address] [id number] [place] [address] Aug, [facility] [address] [id number] [place] [address] Aug, [facility] [address] [id number] [place] [address] Aug, [facility] [address] [id number] [place] [address] Aug, [facility] [address] [id number] [place] [address] Aug, [facility] [address] [id number] [place] [address] Aug, [facility] [address] [id number] [place] [address] Jul, [facility] [address] [id number] [place] [address] Jul, [facility] [address] [id number] [place] [address] 16 Jul, 2013 [facility] [address] [id number] [place] [address] 13 Jul, 2013 [facility] [address] [id number] [place] [address] Jun, [facility] [address] [id number] [place] [address] Jun, [facility] [address] [id number] [place] [address] Jun, [facility] [address] [id number] [place] [address] Jun, [facility] [address] [id number] [place] [address] Jun, [facility] [address] [id number] [place] [address] Jun, [facility] [address] [id number] [place] [address] Jun, [facility] [address] [id number] [place] [address] May, [facility] [address] [id number] [place] [address] May, [facility] [address] [id number] [place] [address] May, [facility] [address] [id number] [place] [address] May, [facility] [address] [id number] [place] [address] May, [facility] [address] [id number] [place] [address] May, [facility] [address] [id number] [place] [address] May, [facility] [address] [id number] [place] [address] Apr, [facility] [address] [id number] [place] [address] Apr, [facility] [address] [id number] [place] [address] Apr, [facility] [address] [id number] [place] [address] Apr, [facility] [address] [id number] [place] [address] Apr, [facility] [address] [id number] [place] [address] 18 Apr, 2013 [facility] [address] [id number] [place] [address] 18 Apr, 2013 [facility] [address] [id number] [place] [address] 18 Apr, 2013 [facility] [address] [id number] [place] [address] 17 Apr, 2013 [facility] [address] [id number] [place] [address] 14 Apr, 2013 [facility] [address] [id number] [place] [address] 14 Apr, 2013 [facility] [address] [id number] [place] [address] 11 Apr, 2013 [facility] [address] [id number] [place] [address] 10 Apr, 2013 [facility] [address] [id number] [place] [address] 09 Apr, 2013 [facility] [address] [id number] [place] [address] 07 Apr, 2013 [facility] [address] [id number] [place] [address] 06 Apr, 2013 [facility] [address] [id number] [place] [address] 06 Apr, 2013 [facility] [address] [id number] [place] [address] 05 Apr, 2013 [facility] [address] [id number] [place] [address] 03 Apr, 2013 [facility] [address] [id number] [place] [address] March, [facility] [address] [id number] [place] [address] March, [facility] [address] [id number] [place] [address] March, [facility] [address] [id number] [place] [address] March, [facility] [address] [id number] [place] [address] March, [facility] [address] [id number] [place] [address] March, [facility] [address] [id number] [place] [address] March, [facility] [address] [id number] [place] [address] Feb, [facility] [address] [id number] [place] [address] Feb, [facility] [address] [id number] [place] [address] 27 Jan, 2013 [facility] [address] [id number] [place] [address] 18 Jan, 2013 [facility] [address] [id number] [place] [address] 15 Jan, 2013 [facility] [address] [id number] [place] [address] 14 Jan, 2013 [facility] [address] [id number] [place] [address] 13 Jan, 2013 [facility] [facility] [address] [id number] [place] [address] 12 Jan, 2013 [facility] [address] [id number] [place] [address] 11 Jan, 2013 [facility] [address] [id number] [place] [address] 09 Jan, 2013 [facility] [facility] [address] [id number] [place] [address] 08 Jan, 2013 [facility] [facility] [address] [id number] [place] [address] 07 Jan, 2013 [facility] [facility] [address] [id number] [place] [address] 06 Jan, 2013 [facility] [facility] [address] [id number] [place] [address] 17 Nov, 2012 [facility] [facility] [address] [id number] [place] [address] Oct, [facility] [place] [facility] [address] [id number] [place] [address] Oct, [facility] [place] [facility] [address] [id number] [place] [address] Oct, [facility] [place] [facility] [address] [id number] [place] [address] Oct, [facility] [place] [facility] [address] [id number] [place] [address] 30 Sep, 2012 [facility] [place] [facility] [address] [id number] [place] [address] 30 Sep, 2012 [facility] [place] [facility] [address] [id number] [place] [address] Sep, [facility] [place] [facility] [address] [id number] [place] [address] 16 Sep, 2012 [facility] [place] [facility] [address] [id number] [place] [address] 16 Sep, 2012 [facility] [place] [facility] [address] [id number] [place] [address] 16 Sep, 2012 [facility] [place] [facility] [address] [id number] [place] [address] 16 Sep, 2012 [facility] [place] [facility] [address] [id number] [place] [address] Sep, [facility] [place] [facility] [address] [id number] [place] [address] Sep, [facility] [place] [facility] [address] [id number] [place] [address] Sep, [facility] [place] [facility] [address] [id number] [place] [address] Sep, [facility] [place] [facility] [address] [id number] [place] [address] Aug, [facility] [place] [facility] [address] [id number] [place] [address] Aug, [facility] [place] [facility] [address] [id number] [place] [address] Aug, [facility] [place] [facility] [address] [id number] [place] [address] 28 Jul, 2012 [facility] [place] [facility] [address] [id number] [place] [address] 25 Jul, 2012 [facility] [place] [facility] [address] [id number] [place] [address] 19 Jul, 2012 [facility] [place] [facility] [address] [id number] [place] [address] 17 Jul, 2012 [facility] [place] [facility] [address] [id number] [place] [address] 20 Jun, 2012 [facility] [place] [facility] [address] [id number] [place] [address] 16 Jun, 2012 [facility] [place] [facility] [address] [id number] [place] [address] 15 Jun, 2012 [facility] [place] [facility] [address] [facility] [id number] [place] [address] 15 Jun, 2012 [facility] [place] [facility] [address] [id number] [place] [address] 13 Jun, 2012 [facility] [place] [facility] [address] [id number] [place] [address] 18 Mar, 2012 [facility] [address] [id number] [place] [address] 04 Feb, 2012 [facility] [place] [facility] [address] [id number] [place] [address] 28 Jan, 2012 [facility] [place] [facility] [address] [id number] [place] [address] 27 Jan, 2012 [facility] [place] [facility] [address] [id number] [place] [address] 22 Jan, 2012 [facility] [address] [id number] [place] [address] 14 Jan, 2012 [facility] [place] [facility] [address] [id number] [place] [address] 14 Jan, 2012 [facility] [address] [id number] [place] [address] 14 Jan, 2012 [facility] [address] [id number] [place] [address] 28 Dec, 2011 [facility] [place] [facility] [address] [id number] [place] [address] 27 Dec, 2011 [facility] [address] [facility] [id number] [place] [address] 23 Dec, 2011 [facility] [place] [facility] [address] [id number] [place] [address] 21 Dec, 2011 [facility] [place] [facility] [address] [id number] [place] [address] 20 Dec, 2011 [facility] [place] [facility] [address] [id number] [place] [address] 19 Dec, 2011 [facility] [facility] [address] [id number] [place] [address] 17 Dec, 2011 [facility] [place] [facility] [address] [id number] [place] [address] Dec, [facility] [address] [id number] [address] Nov, [facility] [id number] [address] Oct, [facility] [id number] [address] Sep, [facility] [id number] [address] Sep, [facility] [id number] [address] Sep, [facility] [id number] [address] Sep, [facility] [id number] [address] Sep, [facility] [id number] [address] Sep, [facility] [id number] [address] Jan, [facility] [id number] [address] Apr, IMMUNIZATIONS No Known Immunizations SOCIAL HISTORY Never Assessed REASON FOR VISIT EMR-[facility] PLAN OF CARE VITAL SIGNS MEDICATIONS Unknown [...]
--- OUTSIDE RECORDS SUMMARY | 2019-05-27 20:51 | XMS REPORT ---
Author Author Migration, Doctor Organization [facility] Address Unknown Phone Unavailable Care Team Providers Care [employer] Psychology Professor Name Role Phone Migration, Doctor Unavailable Unavailable PROBLEMS Type Condition ICD9-CM Code YUH79-AD Code Onset Dates Condition Status SNOMED Code Problem Generalized anxiety disorder F41.1 Active 85715583 Problem Bipolar disorder, current episode mixed, moderate F31.62 Active 575130941 Problem Acute non intractable tension-type headache G44.209 Active 814026702 Problem Constipation K59.00 Active 50625250 Problem Post traumatic stress disorder F43.10 Active 64926800 Problem Borderline personality disorder F60.3 Active 66476849 Problem Endometriosis N80.9 Active 770078357 Problem Acute right-sided low back pain with right-sided sciatica M54.41 Active [id number] ALLERGIES No Information ENCOUNTERS Encounter Location Date Diagnosis [facility] [id number] [place] [address] Feb, [facility] [address] [address] Feb, Bipolar disorder, current episode mixed, moderate F31.62 [facility] [id number] [place] [address] Jan, Dehydration E86.0 and Back muscle spasm M62.830 [facility] [id number] [place] [address] Jan, Bipolar disorder, current episode mixed, moderate F31.62 ; Post traumatic stress disorder F43.10 ; Borderline personality disorder F60.3 and Other halfway (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 Z79.899 [facility] [id number] [place] [address] Jan, Cough R05 and Viral upper respiratory tract infection J06.9 [facility] [address] [address] Jan, Bipolar disorder, current episode mixed, moderate F31.62 [facility] [id number] [place] [address] 08 Dec, 2018 Bipolar disorder, current episode mixed, moderate F31.62 [facility] [id number] [place] [address] Nov, Bipolar disorder, current episode mixed, moderate F31.62 [facility] [id number] [place] [address] Oct, Sore throat J02.9 [facility] [place] [address] [address] Oct, Abdominal pain R10.9 ; Low back pain M54.5 ; Left shoulder pain M25.512 and Constipation K59.00 [facility] [id number] [place] [address] Oct, Bipolar disorder, current episode mixed, moderate F31.62 ; Post traumatic stress disorder F43.10 and Borderline personality disorder F60.3 [facility] [id number] [place] [address] Sep, Bipolar disorder, current episode mixed, moderate F31.62 [facility] [id number] [place] [address] Aug, Bipolar disorder, current episode mixed, moderate F31.62 [facility] [id number] [place] [address] Jul, Thrombophlebitis I80.9 and Pelvic pain R10.2 [facility] [id number] [place] [address] 05 Jul, 2018 Bipolar disorder, current episode mixed, moderate F31.62 ; Post traumatic stress disorder F43.10 and Borderline personality disorder F60.3 [facility] [id number] [place] [address] Jun, Bipolar disorder, current episode mixed, moderate F31.62 [facility] [id number] [place] [address] May, Palpitations R00.2 [facility] [id number] [place] [address] May, Palpitations R00.2 [facility] [address] [address] May, Palpitations R00.2 and Frequent bowel movements R19.4 [facility] [place] [id number] [place] [address] 05 May, 2018 Bipolar disorder, current episode mixed, moderate F31.62 ; Post traumatic stress disorder F43.10 and Borderline personality disorder F60.3 [facility] [id number] [place] [id number] Apr, Dental examination Z01.20 [facility] [id number] [place] [address] Apr, [facility] [id number] [place] [address] Apr, Tooth pain K08.89 [facility] [id number] [place] [address] 15 Apr, 2018 Dental examination Z01.20 [facility] [id number] [place] [address] 06 Apr, 2018 Bipolar disorder, current episode mixed, moderate F31.62 ; Post traumatic stress disorder F43.10 and Borderline personality disorder F60.3 [facility] [id number] [place] [address] March, Abdominal pain R10.9 ; UTI symptoms R39.9 and Other microscopic hematuria R31.29 [facility] [id number] [place] [address] March, [facility] [id number] [place] [address] March, Bipolar disorder, current episode mixed, moderate F31.62 ; Post traumatic stress disorder F43.10 and Borderline personality disorder F60.3 [facility] [id number] [place] [address] Feb, Encounter for immunization Z23 [facility] [address] [address] Feb, Bipolar disorder, current episode mixed, moderate F31.62 ; Post traumatic stress disorder F43.10 and Borderline personality disorder F60.3 [facility] [place] [id number] [place] [address] Feb, Bipolar disorder, current episode mixed, moderate F31.62 ; Post traumatic stress disorder F43.10 ; Borderline personality disorder F60.3 and Other halfway (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 Z79.899 [place] [address] [address] Jan, Encounter for immunization Z23 [facility] [id number] [place] [address] Jan, [facility] [id number] [place] [address] Jan, Bipolar disorder, current episode mixed, moderate F31.62 [facility] [id number] [place] [address] Jan, Lumbar back pain M54.5 [facility] [id number] [place] [address] Dec, Low back pain M54.5 [facility] [id number] [place] [address] Dec, Bipolar disorder, current episode mixed, moderate F31.62 [facility] [id number] [place] [address] Dec, Generalized anxiety disorder F41.1 and Bipolar disorder, current episode mixed, moderate F31.62 [facility] [id number] [place] [address] Nov, Acute non intractable tension-type headache G44.209 [facility] [id number] [place] [address] Nov, Bipolar disorder, current episode mixed, moderate F31.62 ; Post traumatic stress disorder F43.10 and Borderline personality disorder F60.3 [facility] [id number] [place] [address] Nov, Bipolar disorder, current episode mixed, moderate F31.62 [facility] [id number] [place] [address] Nov, Abdominal pain R10.9 ; History of PCOS Z87.42 ; History of endometriosis Z87.42 and Pelvic pain R10.2 [facility] [id number] [place] [address] Nov, [facility] [id number] [place] [address] Oct, History of PCOS Z87.42 ; History of endometriosis Z87.42 and Pain R52 [facility] [id number] [place] [address] Oct, Bipolar disorder, current episode mixed, moderate F31.62 ; Post traumatic stress disorder F43.10 and Borderline personality disorder F60.3 [facility] [id number] [place] [address] Oct, Bipolar disorder, current episode mixed, moderate F31.62 [place] [address] [address] Sep, Bipolar disorder, current episode mixed, moderate F31.62 ; Post traumatic stress disorder F43.10 ; Borderline personality disorder F60.3 and Other halfway (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 Z79.899 [facility] [place] [address] [address] 17 Sep, 2017 Bipolar disorder, current episode mixed, moderate F31.62 [facility] [id number] [place] [address] Sep, Endometriosis N80.9 and Acute right-sided low back pain with right- sided sciatica M54.41 [facility] [id number] [place] [address] Aug, [facility] [id number] [place] [address] Aug, Bipolar disorder, current episode mixed, moderate F31.62 ; Post traumatic stress disorder F43.10 and Borderline personality disorder F60.3 [facility] [id number] [place] [address] 11 Aug, 2017 Bipolar disorder, current episode mixed, moderate F31.62 ; Post traumatic stress disorder F43.10 and Borderline personality disorder F60.3 [place] [id number] [place] [address] 13 Jul, 2017 Bipolar disorder, current episode mixed, moderate F31.62 ; Post traumatic stress disorder F43.10 and Borderline personality disorder F60.3 [facility] [id number] [place] [address] 11 Jul, 2017 Pharyngitis, unspecified etiology J02.9 and Streptococcal pharyngitis J02.0 [facility] [id number] [place] [address] 16 Jun, 2017 Bipolar disorder, current episode mixed, moderate F31.62 ; Post traumatic stress disorder F43.10 and Borderline personality disorder F60.3 [place] [id number] [place] [address] May, [place] [id number] [place] [address] May, [facility] [id number] [place] [address] May, Bipolar disorder, current episode mixed, moderate F31.62 and Generalized anxiety disorder F41.1 [facility] [id number] [place] [id number] March, Bipolar disorder, current episode mixed, moderate F31.62 and Generalized anxiety disorder F41.1 [place] [address] [address] March, Pelvic pain R10.2 [place] [address] [address] March, [place] [id number] [place] [address] Feb, Bipolar disorder, current episode mixed, moderate F31.62 and Generalized anxiety disorder F41.1 [facility] [id number] [place] [address] Jan, [facility] [place] [id number] [place] [address] Jan, Bipolar disorder, current episode mixed, moderate F31.62 [facility] [id number] [place] [address] Jan, Bipolar disorder, current episode mixed, moderate F31.62 [facility] [id number] [place] [address] Jan, Bilateral low back pain without sciatica M54.5 [facility] [id number] [place] [id number] Jan, Dental caries K02.9 and Dental examination Z01.20 [facility] [id number] [place] [id number] Jan, Encounter for dental examination and cleaning without abnormal findings Z01.20 [facility] [id number] [place] [address] Jan, Bipolar disorder, current episode mixed, moderate F31.62 and Generalized anxiety disorder F41.1 [facility] [id number] [place] [address] Dec, [facility] [id number] [place] [address] Dec, Bipolar disorder, current episode mixed, moderate F31.62 and Generalized anxiety disorder F41.1 [facility] [id number] [place] [address] Dec, Other fatigue R53.83 and Orthostatic hypotension I95.1 [facility] [address] [id number] Nov, Dental examination Z01.20 [facility] [id number] [place] [address] Nov, Bronchitis J40 [facility] [id number] [place] [address] Oct, Generalized anxiety disorder F41.1 [facility] [id number] [place] [address] 14 Sep, 2016 Bipolar disorder, current episode mixed, moderate F31.62 and Generalized anxiety disorder F41.1 [facility] [id number] [place] [address] 02 Sep, 2016 Bipolar disorder, current episode mixed, moderate F31.62 and Generalized anxiety disorder F41.1 [facility] [id number] [place] [address] 08 Jul, 2016 Upper respiratory tract infection, unspecified type J06.9 [facility] [place] [id number] [place] [address] Jun, Bipolar disorder, current episode mixed, moderate F31.62 and Generalized anxiety disorder F41.1 [facility] [id number] [place] [address] Apr, [place] [address] [address] Apr, Encounter for test, result positive Z32.01 [facility] [id number] [place] [address] March, [facility] [id number] [place] [address] March, Bipolar disorder, current episode mixed, moderate F31.62 and Generalized anxiety disorder F41.1 [facility] [id number] [place] [address] March, Bipolar disorder, current episode mixed, moderate F31.62 and Generalized anxiety disorder F41.1 [facility] [id number] [place] [address] March, [facility] [id number] [place] [address] March, [facility] [id number] [place] [address] Feb, [facility] [id number] [place] [address] Feb, [facility] [id number] [place] [address] Feb, Bipolar disorder, current episode mixed, moderate F31.62 and Generalized anxiety disorder F41.1 [facility] [id number] [place] [address] Jan, Abdominal pain R10.9 [facility] [id number] [place] [address] Jan, [facility] [id number] [place] [address] Dec, Dental examination Z01.20 [facility] [id number] [place] [address] 22 Feb, 2016 Dental examination Z01.20 and Dental caries K02.9 [facility] [id number] [place] [address] 15 Dec, 2015 Bipolar disorder, current episode mixed, moderate F31.62 and Generalized anxiety disorder F41.1 [facility] [id number] [place] [address] 15 Dec, 2015 [place] [address] [address] Nov, Bipolar disorder, current episode mixed, moderate F31.62 ; Generalized anxiety disorder F41.1 and Seizure-like activity R56.9 [facility] [id number] [place] [address] Oct, [facility] [id number] [place] [address] Oct, Bipolar disorder, current episode mixed, moderate F31.62 [place] [id number] [place] [address] 14 Oct, 2015 Well woman exam Z01.419 [...] Tobacco use Z72.0 and Hot flashes N95.1 [place] [id number] [place] [address] 09 Oct, 2015 Seizure-like activity R56.9 and Irregular periods N92.6 [place] [id number] [place] [address] 07 Oct, 2015 Bipolar disorder, current episode mixed, moderate F31.62 ; Generalized anxiety disorder F41.1 and Underweight R63.6 [facility] [id number] [place] [address] Oct, [facility] [address] [address] Oct, Generalized anxiety disorder F41.1 and Unspecified mood [affective] disorder F39 [facility] [id number] [place] [address] Oct, Back pain M54.9 and Anxiety F41.9 [facility] [id number] [place] [address] Oct, [facility] [address] [address] Sep, Arm pain, left M79.602 [facility] [address] [address] Sep, [facility] [address] [id number] Sep, Dental examination Z01.20 and Dental caries K02.9 [facility] [id number] [place] [address] Sep, Generalized anxiety disorder F41.1 and Unspecified episodic mood disorder F39 [facility] [id number] [place] [address] Sep, Bilateral low back pain without sciatica M54.5 and Seizure-like activity R56.9 [facility] [id number] [place] [address] Aug, [facility] [address] [address] Aug, [facility] [id number] [place] [address] Aug, [facility] [address] [address] Aug, Visual changes H53.9 and Bilateral low back pain without sciatica M54.5 [facility] [id number] [place] [address] Jul, [facility] [id number] [place] [address] Jun, Bipolar I disorder, most recent episode (or current) mixed, moderate 296.62 ; Generalized anxiety disorder 300.02 and High risk medication use V58.69 [facility] [id number] [place] [address] Jun, [facility] [id number] [place] [address] May, [facility] [id number] [place] [address] May, Bipolar I disorder, most recent episode (or current) mixed, moderate 296.62 and Generalized anxiety disorder 300.02 [facility] [id number] [place] [id number] May, Dental examination V72.2 [facility] [id number] [place] [address] March, Bipolar I disorder, most recent episode (or current) mixed, moderate 296.62 and Generalized anxiety disorder 300.02 [facility] [id number] [place] [address] March, [facility] [id number] [place] [address] March, [facility] [id number] [place] [address] March, Underweight 783.22 ; Hand pain, right 729.5 and Reflux gastritis 535.40 [facility] [id number] [place] [address] 14 Feb, 2015 [facility] [address] [address] 13 Feb, 2015 [facility] [place] [facility] [address] [id number] [place] [address] 18 Jan, 2015 [facility] [place] [facility] [address] [id number] [place] [address] 18 Jan, 2015 [facility] [place] [facility] [address] [id number] [place] [address] 16 Jan, 2015 [facility] [place] [facility] [address] [id number] [place] [address] 16 Jan, 2015 [facility] [place] [facility] [address] [id number] [place] [address] Jan, [facility] [place] [facility] [address] [id number] [place] [address] Jan, [facility] [place] [facility] [address] [id number] [place] [address] 05 Jan, 2015 [facility] [place] [facility] [address] [id number] [place] [address] 05 Jan, 2015 [facility] [place] [facility] [address] [id number] [place] [address] Jan, [facility] [place] [facility] [address] [id number] [place] [address] Jan, [facility] [place] [facility] [address] [id number] [place] [address] Jan, [facility] [place] [facility] [address] [id number] [address] Jan, [facility] [place] [facility] [address] [id number] [place] [address] Dec, [facility] [place] [facility] [address] [id number] [place] [address] Dec, [facility] [place] [facility] [address] [id number] [place] [address] Dec, [facility] [place] [facility] [address] [id number] [place] [address] 19 Dec, 2014 [facility] [place] [facility] [address] [id number] [place] [address] 18 Dec, 2014 [facility] [place] [facility] [address] [id number] [place] [address] 17 Dec, 2014 [facility] [place] [facility] [address] [facility] [id number] [place] [address] 17 Dec, 2014 [facility] [place] [facility] [address] [id number] [place] [address] 16 Dec, 2014 [facility] [place] [facility] [address] [id number] [place] [address] 16 Dec, 2014 [facility] [place] [facility] [address] [facility] [id number] [place] [address] 05 Dec, 2014 [facility] [place] [facility] [address] [facility] [id number] [place] [address] 05 Dec, 2014 [facility] [place] [facility] [address] [facility] [id number] [place] [address] 05 Dec, 2014 [facility] [place] [facility] [address] [facility] [id number] [place] [address] 05 Dec, 2014 [facility] [place] [facility] [address] [facility] [id number] [place] [address] Dec, 2014 [facility] [place] [facility] [address] [facility] [id number], [place] [address] Dec, 2014 [facility] [place] [facility] [address] [facility] [id number] [place] [address] Dec, 2014 [facility] [place] [facility] [address] [facility] [id number], [place] [address] 04 Dec, 2014 [facility] [place] [facility] [address] [facility] [id number] [place] [address] 03 Dec, 2014 [facility] [place] [facility] [address] [facility] [id number] [place] [place] [address] Dec, [facility] [place] [facility] [address] [id number] [place] [address] Nov, [facility] [place] [facility] [address] [id number] [place] [address] Nov, [facility] [place] [facility] [address] [id number] [place] [address] Nov, [facility] [place] [facility] [address] [id number] [place] [address] Nov, [facility] [place] [facility] [address] [id number] [place] [address] Nov, [facility] [place] [facility] [address] [id number] [place] [address] Nov, [facility] [place] [facility] [id number] [id number] Nov, [facility] [place] [facility] [address] [id number] [place] [address] Nov, [facility] [place] [facility] [address] [id number] [place] [address] Nov, [facility] [place] [facility] [id number] [id number] Nov, [facility] [place] [facility] [address] [id number] [place] [address] Nov, [facility] [place] [facility] [address] [id number], [place] [address] Nov, [facility] [place] [facility] [address] [id number] [place] [address] Oct, [facility] [place] [facility] [address] [id number] [place] [address] Oct, [facility] [place] [facility] [address] [id number] [place] [address] Oct, [facility] [place] [facility] [address] [id number] [place] [address] 30 Oct, 2014 [facility] [place] [facility] [address] [id number] [place] [address] Oct, [facility] [place] [facility] [address] [id number] [place] [address] Oct, [facility] [place] [facility] [address] [id number] [place] [address] Oct, [facility] [place] [facility] [address] [id number] [place] [address] Oct, [facility] [place] [facility] [address] [id number] [place] [address] Oct, [facility] [place] [facility] [address] [id number] [place] [address] Oct, [facility] [place] [facility] [address] [id number] [place] [address] Oct, [facility] [place] [facility] [address] [id number] [place] [address] Oct, [facility] [place] [facility] [address] [id number] [place] [address] Sep, [facility] [place] [facility] [address] [id number] [place] [address] Sep, [facility] [place] [facility] [address] [id number] [place] [address] Sep, [facility] [place] [facility] [address] [id number] [place] [address] Sep, [facility] [place] [facility] [address] [id number] [place] [address] Sep, [facility] [place] [facility] [address] [id number] [place] [address] Sep, [facility] [place] [facility] [address] [id number] [place] [address] Sep, [facility] [place] [facility] [address] [id number] [place] [address] Sep, [facility] [place] [facility] [address] [id number] [place] [address] Aug, [facility] [place] [facility] [address] [id number] [place] [address] Aug, [facility] [place] [facility] [address] [id number] [place] [address] Aug, [facility] [place] [facility] [address] [id number] [place] [address] Aug, [facility] [place] [facility] [address] [id number] [place] [address] Aug, [facility] [place] [facility] [address] [id number] [place] [address] Aug, [facility] [place] [facility] [address] [id number], [place] [address] Aug, [facility] [place] [facility] [address] [id number] [place] [address] Aug, [facility] [place] [facility] [address] [id number], [place] [address] Aug, [facility] [place] [facility] [address] [id number], [place] [address] Aug, [facility] [place] [facility] [address] [id number], [place] [address] Aug, [facility] [place] [facility] [address] [id number], [place] [address] Aug, [facility] [place] [facility] [address] [id number], [place] [address] Aug, [facility] [place] [facility] [address] [id number], [place] [address] Jul, [facility] [place] [facility] [address] [id number] [place] [address] Jul, [facility] [place] [facility] [address] [id number] [place] [address] Jul, [facility] [place] [facility] [address] [id number] [place] [address] Jul, [facility] [place] [facility] [address] [id number] [place] [address] Jun, [facility] [place] [facility] [address] [id number] [place] [address] Jun, [facility] [place] [facility] [address] [id number] [place] [address] Jun, [facility] [place] [facility] [address] [id number] [place] [address] Jun, [facility] [place] [facility] [address] [id number] [place] [address] Jun, [facility] [place] [facility] [address] [id number] [place] [address] Jun, [facility] [place] [facility] [address] [id number] [place] [address] May, [facility] [place] [facility] [address] [id number] [place] [address] May, [facility] [place] [facility] [address] [id number] [place] [address] May, [facility] [place] [facility] [address] [id number] [place] [address] May, [facility] [place] [facility] [address] [id number] [place] [address] Apr, [facility] [place] [facility] [address] [id number] [place] [address] Apr, [facility] [place] [facility] [address] [id number] [place] [address] March, [facility] [place] [facility] [address] [id number] [place] [address] March, [facility] [place] [facility] [address] [id number] [place] [address] March, [facility] [place] [facility] [address] [id number] [place] [address] March, [facility] [place] [facility] [address] [id number] [place] [address] March, [facility] [place] [facility] [address] [id number] [place] [address] March, [facility] [place] [facility] [address] [id number] [place] [address] Feb, [facility] [place] [facility] [address] [id number] [place] [address] Feb, [facility] [place] [facility] [address] [id number] [place] [address] Dec, [facility] [place] [facility] [address] [id number] [place] [address] Dec, [facility] [place] [facility] [address] [id number] [place] [address] Nov, [facility] [place] [facility] [address] [id number] [place] [address] Nov, [facility] [place] [facility] [address] [id number] [place] [address] Sep, [facility] [place] [facility] [address] [id number] [place] [address] Sep, [facility] [place] [facility] [address] [id number] [place] [address] Sep, [facility] [place] [facility] [address] [id number] [place] [address] Sep, [facility] [place] [facility] [address] [id number], [place] [address] Sep, [facility] [place] [facility] [address] [id number] [place] [address] Sep, [facility] [place] [facility] [address] [id number] [place] [address] Sep, [facility] [place] [facility] [address] [id number] [place] [address] Aug, [facility] [place] [facility] [address] [id number] [place] [address] Aug, [facility] [place] [facility] [address] [id number] [place] [address] Aug, [facility] [place] [facility] [address] [id number] [place] [address] Aug, [facility] [place] [facility] [address] [id number] [place] [address] Aug, [facility] [place] [facility] [address] [id number] [place] [address] Aug, [facility] [place] [facility] [address] [id number] [place] [address] Jul, [facility] [place] [facility] [address] [id number] [place] [address] Jul, [facility] [place] [facility] [address] [id number], [place] [address] 16 Jul, 2013 [facility] [place] [facility] [address] [id number], [place] [address] 13 Jul, 2013 [facility] [place] [facility] [address] [id number] [place] [address] Jun, [facility] [place] [facility] [address] [id number] [place] [address] Jun, [facility] [place] [facility] [address] [id number] [place] [address] Jun, [facility] [place] [facility] [address] [id number] [place] [address] Jun, [facility] [address] [id number] [place] [address] Jun, [facility] [place] [facility] [address] [id number] [place] [address] Jun, [facility] [place] [facility] [address] [id number] [place] [address] Jun, [facility] [place] [facility] [address] [id number] [place] [address] May, [facility] [place] [facility] [address] [id number] [place] [address] May, [facility] [place] [facility] [address] [id number] [place] [address] May, [facility] [place] [facility] [address] [id number] [place] [address] May, [facility] [place] [facility] [address] [id number] [place] [address] May, [facility] [place] [facility] [address] [id number] [place] [address] May, [facility] [place] [facility] [address] [id number] [place] [address] May, [facility] [place] [facility] [address] [id number] [place] [address] Apr, [facility] [place] [facility] [address] [id number] [place] [address] Apr, [facility] [place] [facility] [address] [id number] [place] [address] Apr, [facility] [place] [facility] [address] [id number] [place] [address] Apr, [facility] [place] [facility] [address] [id number] [place] [address] Apr, [facility] [place] [facility] [address] [id number] [place] [address] 18 Apr, 2013 [facility] [place] [facility] [address] [id number] [place] [address] 18 Apr, 2013 [facility] [place] [facility] [address] [id number] [place] [address] 18 Apr, 2013 [facility] [place] [facility] [address] [id number] [place] [address] 17 Apr, 2013 [facility] [place] [facility] [address] [id number] [place] [address] 14 Apr, 2013 [facility] [place] [facility] [address] [id number] [place] [address] 14 Apr, 2013 [facility] [place] [facility] [address] [id number] [place] [address] 11 Apr, 2013 [facility] [place] [facility] [address] [id number] [place] [address] 10 Apr, 2013 [facility] [place] [facility] [address] [id number] [place] [address] 09 Apr, 2013 [facility] [place] [facility] [address] [id number], [place] [address] 07 Apr, 2013 [facility] [place] [facility] [address] [id number], [place] [address] 06 Apr, 2013 [facility] [place] [facility] [address] [id number], [place] [address] 06 Apr, 2013 [facility] [place] [facility] [address] [id number] [place] [address] 05 Apr, 2013 [facility] [place] [facility] [address] [id number], [place] [address] 03 Apr, 2013 [facility] [place] [facility] [address] [id number] [place] [address] March, [facility] [place] [facility] [address] [id number] [place] [address] March, [facility] [address] [id number] [place] [address] March, [facility] [address] [id number] [place] [address] March, [facility] [address] [id number] [place] [address] March, [facility] [address] [id number] [place] [address] March, [facility] [address] [id number] [place] [address] March, [facility] [address] [id number] [place] [address] Feb, [facility] [address] [id number] [place] [address] Feb, [facility] [address] [id number] [place] [address] 27 Jan, 2013 [facility] [address] [id number] [place] [address] 18 Jan, 2013 [facility] [address] [id number] [place] [address] 15 Jan, 2013 [facility] [address] [id number] [place] [address] 14 Jan, 2013 [facility] [address] [id number] [place] [address] 13 Jan, 2013 [facility] [place] [facility] [address] [id number] [place] [address] 12 Jan, 2013 [facility] [place] [facility] [address] [id number] [place] [address] 11 Jan, 2013 [facility] [address] [id number] [place] [address] 09 Jan, 2013 [facility] [place] [facility] [address] [id number] [place] [address] 08 Jan, 2013 [facility] [place] [facility] [address] [id number] [place] [address] 07 Jan, 2013 [facility] [place] [facility] [address] [id number] [place] [address] 06 Jan, 2013 [facility] [place] [facility] [address] [id number] [place] [address] 17 Nov, 2012 [facility] [place] [facility] [address] [id number] [place] [address] Oct, [facility] [place] [facility] [address] [id number] [place] [address] Oct, [facility] [place] [facility] [address] [id number] [place] [address] Oct, [facility] [place] [facility] [address] [id number] [place] [address] Oct, [facility] [place] [facility] [address] [id number] [place] [address] 30 Sep, 2012 [facility] [place] [facility] [address] [id number] [place] [address] 30 Sep, 2012 [facility] [place] [facility] [address] [id number] [place] [address] Sep, [facility] [place] [facility] [address] [id number] [place] [address] 16 Sep, 2012 [facility] [place] [facility] [address] [id number] [place] [address] 16 Sep, 2012 [facility] [place] [facility] [address] [id number] [place] [address] 16 Sep, 2012 [facility] [place] [facility] [address] [id number] [place] [address] 16 Sep, 2012 [facility] [place] [facility] [address] [id number] [place] [address] Sep, [facility] [place] [facility] [address] [id number] [place] [address] Sep, [facility] [place] [facility] [address] [id number] [place] [address] Sep, [facility] [place] [facility] [address] [id number] [place] [address] Sep, [facility] [place] [facility] [address] [id number] [place] [address] Aug, [facility] [place] [facility] [address] [id number] [place] [address] Aug, [facility] [place] [facility] [address] [id number] [place] [address] Aug, [facility] [place] [facility] [address] [id number] [place] [address] 28 Jul, 2012 [facility] [place] [facility] [address] [id number] [place] [address] 25 Jul, 2012 [facility] [place] [facility] [address] [id number] [place] [address] 19 Jul, 2012 [facility] [place] [facility] [address] [id number] [place] [address] 17 Jul, 2012 [facility] [place] [facility] [address] [id number], [place] [address] 20 Jun, 2012 [facility] [place] [facility] [address] [id number], [place] [address] 16 Jun, 2012 [facility] [place] [facility] [address] [id number] [place] [address] 15 Jun, 2012 [facility] [place] [facility] [address] [facility] [id number] [place] [address] 15 Jun, 2012 [facility] [place] [facility] [address] [id number] [place] [address] 13 Jun, 2012 [facility] [place] [facility] [address] [id number] [place] [address] 18 Mar, 2012 [facility] [address] [id number] [place] [address] 04 Feb, 2012 [facility] [place] [facility] [address] [id number] [place] [address] 28 Jan, 2012 [facility] [place] [facility] [address] [id number] [place] [address] 27 Jan, 2012 [facility] [place] [facility] [address] [id number] [place] [address] 22 Jan, 2012 [facility] [address] [id number] [place] [address] 14 Jan, 2012 [facility] [place] [facility] [address] [id number] [place] [address] 14 Jan, 2012 [facility] [address] [id number] [place] [address] 14 Jan, 2012 [facility] [address] [id number] [place] [address] 28 Dec, 2011 [facility] [place] [facility] [address] [id number] [place] [address] 27 Dec, 2011 [facility] [address] [facility] [id number] [place] [address] 23 Dec, 2011 [facility] [place] [facility] [address] [id number] [place] [address] 21 Dec, 2011 [facility] [place] [facility] [address] [id number] [place] [address] 20 Dec, 2011 [facility] [place] [facility] [address] [id number] [place] [address] 19 Dec, 2011 [facility] [place] [facility] [address] [id number] [place] [address] 17 Dec, 2011 [facility] [place] [facility] [address] [id number] [place] [address] Dec, [facility] [address] [id number] [address] Nov, [facility] [id number] [place] [address] Oct, [facility] [id number], [place] [address] Sep, [facility] [id number], [place] [address] Sep, [facility] [id number], [place] [address] Sep, [facility] [id number], [place] [address] Sep, [facility] [id number], [place] [address] Sep, [facility] [id number], [place] [address] Sep, [facility] [id number] [address] Jan, [facility] [id number] [address] Apr, IMMUNIZATIONS No Known Immunizations SOCIAL HISTORY Never Assessed REASON FOR VISIT EMR[place] [place] CARE VITAL SIGNS MEDICATIONS Unknown [...]
[2019-05-27 20:56] LABS: BILIRUBIN,URINE NEGATIVE (NEGATIVE); CLARITY,URINE VERY CLOUDY; COLOR,URINE YELLOW; GLUCOSE, URINE (UA) NEGATIVE (NEGATIVE); KETONES,URINE NEGATIVE (NEGATIVE); LEUKOCYTE ESTERASE ,URINE NEGATIVE (NEGATIVE); NITRITE,URINE NEGATIVE (NEGATIVE); PH,URINE 8 (5-9); PROTEIN,URINE NEGATIVE (NEGATIVE); UROBILINOGEN,URINE NORMAL (NORMAL)
[2019-05-27 21:02] LABS: AMORPHOUS SEDIMENT,UR MOD AMOR PHOSPHATE /LPF; BACTERIA,URINE TRACE /HPF; SQUAMOUS EPITHELIAL CELL,UR 0-2 /HPF
[2019-05-27 21:15] LABS: BENZODIAZEPINES SCREEN URINE POSITIVE (NEGATIVE)
[2019-05-27 21:16] LABS: AMPHETAMINE SCREEN, URINE NEGATIVE (NEGATIVE); BARBITURATE SCREEN URINE NEGATIVE (NEGATIVE); CANNABINOID SCREEN, URINE NEGATIVE (NEGATIVE); COCAINE SCREEN URINE NEGATIVE (NEGATIVE); METHADONE STAT NEGATIVE (NEGATIVE); METHAMPHETAMINE SCREEN URINE S NEGATIVE (NEGATIVE); OPIATE SCREEN URINE NEGATIVE (NEGATIVE); OXYCODONE STAT NEGATIVE (NEGATIVE); PROPOXYPHENE STAT NEGATIVE (NEGATIVE); TRICYCLIC ANTIDEPRESSANTS SCRE NEGATIVE (NEGATIVE)
--- OUTSIDE RECORDS SUMMARY | 2019-05-27 21:54 | XMS REPORT | Continuity of Care Document ---
[...] Drug Allergy N/A N/A 05/09/2013 Yes Penicillins [id number] Drug Allergy Mild PT ABLE TO TAKE 03/26/2014 Yes Depakote 250 mg tablet,delayed release (DR/EC) Drug Allergy N/A N/A 12/18/2014 Yes diclofenac [id number] Drug Allergy Unknown N/A 01/21/2015 Yes divalproex sodium [id number] Drug Allergy Unknown N/A 08/26/2015 Medications There [...] KELY J 296.90 Mood Disorder 06/20/2008 GARTON MORTICIAN INVESTIGATORJASON Kirkpatrick D 296.90 Mood Disorder 06/20/2008 GARMYRA MORTICIAN INVESTIGATORKEITH KirkpatrickTH D 296.90 Mood Disorder 06/20/2008 GARTON MORTICIAN INVESTIGATOR, JASON D 296.90 Mood Disorder 06/20/2008 WOLF JAMA MD 296.90 Mood Disorder 06/20/2008 ROEL MORTICIAN INVESTIGATOR, GODWIN 296.90 Mood Disorder 06/20/2008 MADL MORTICIAN INVESTIGATOR, FLO L 296.90 Mood Disorder 06/20/2008 ROEL MORTICIAN INVESTIGATOR, GODWIN 296.90 Mood Disorder 06/20/2008 MADL MORTICIAN INVESTIGATOR, FLO L 296.90 Mood Disorder 06/20/2008 ROEL MORTICIAN INVESTIGATOR, GODWIN 296.90 Mood Disorder 06/20/2008 ROEL MORTICIAN INVESTIGATOR, GODWIN 296.90 Mood Disorder 06/20/2008 MADL MORTICIAN INVESTIGATOR, FLO L 296.90 Mood Disorder 06/20/2008 MADL MORTICIAN INVESTIGATOR, FLO L 296.90 Mood Disorder 06/20/2008 ROEL MORTICIAN INVESTIGATOR, GODWIN 296.90 Mood Disorder 06/20/2008 SONNY MORTICIAN INVESTIGATOR, ELIAS A 296.90 Mood Disorder 06/20/2008 [facility], DEMOND R 296.90 Mood Disorder 06/20/2008 MADL MORTICIAN INVESTIGATOR, FLO L 296.90 Mood Disorder 06/20/2008 JOSE SILVERIO DDS 296.90 Mood Disorder 06/20/2008 [facility], DEMOND R 296.90 Mood Disorder [facility]/20/[facility] 296.90 Mood Disorder 06/20/2008 ROEL MORTICIAN INVESTIGATOR, GODWIN 296.90 Mood Disorder 06/20/2008 MANUEL DO, NICOLA K 296.90 Mood Disorder 06/20/2008 ROEL MORTICIAN INVESTIGATOR, GODWIN 296.90 Mood Disorder 06/20/2008 ROEL MORTICIAN INVESTIGATOR, GODWIN 296.90 Mood Disorder 10/03/2008 WOLF JAMA MD 465.9 Upper Respiratory Infection 10/03/2008 WOLF JAMA MD 465.9 Upper Respiratory Infection 10/03/2008 465.9 Upper Respiratory Infection 10/03/2008 MAR BLANTON NICOLA K 465.9 Upper Respiratory Infection 10/03/2008 JASON [...] GODWIN 465.9 Upper Respiratory Infection 10/03/2008 MADTima MORTICIAN INVESTIGATOR, FLO L 465.9 Upper Respiratory Infection 10/03/2008 ROEL MORTICIAN INVESTIGATOR GODWIN 465.9 Upper Respiratory Infection 10/03/2008 MADL MORTICIAN INVESTIGATOR, FLO L 465.9 Upper Respiratory Infection 10/03/2008 ROEL MORTICIAN INVESTIGATOR, GODWIN 465.9 Upper Respiratory Infection 10/03/2008 ROEL TAQUERIA, GODWIN 465.9 Upper Respiratory Infection 10/03/2008 MADL MORTICIAN INVESTIGATOR, FLO L 465.9 Upper Respiratory Infection 10/03/2008 MADL MORTICIAN INVESTIGATOR, FLO L 465.9 Upper Respiratory Infection 10/03/2008 ROEL MORTICIAN INVESTIGATOR, GODWIN 465.9 Upper Respiratory Infection 10/03/2008 SONNY MORTICIAN INVESTIGATOR, ELIAS A 465.9 Upper Respiratory Infection 10/03/2008 [facility], DEMOND R 465.9 Upper Respiratory Infection 10/03/2008 MADL MORTICIAN INVESTIGATOR, FLO L 465.9 Upper Respiratory Infection 10/03/2008 SILVERIO DDS, JOSE 465.9 Upper Respiratory Infection 10/03/2008 [facility], DEMOND R 465.9 Upper Respiratory Infection 10/03/2008 [facility], DEMOND R 465.9 Upper Respiratory Infection 10/03/2008 ROEL MORTICIAN INVESTIGATOR, GODWIN 465.9 Upper Respiratory Infection 10/03/2008 NICOLA MANUEL DO 465.9 Upper Respiratory Infection 10/03/2008 ROEL MORTICIAN INVESTIGATOR, GODWIN 465.9 Upper Respiratory Infection 10/03/2008 ROEL MORTICIAN INVESTIGATOR, GODWIN 465.9 Upper Respiratory Infection 11/27/2008 WOLF [...] J V58.69 Medication High Risk 11/27/2008 GARMYRA MORTICIAN INVESTIGATORJASON Kirkpatrick V58.69 Medication High Risk 11/27/2008 DALE MORTICIAN INVESTIGATORJASON Kirkpatrick V58.69 Medication High Risk 11/27/2008 JASON HUNTER APRN V58.69 Medication High Risk 11/27/2008 WOLF JAMA MD V58.69 Medication High Risk 11/27/2008 ROEL MORTICIAN INVESTIGATOR, GODWIN V58.69 Medication High Risk 11/27/2008 MADL MORTICIAN INVESTIGATOR, FLO L V58.69 Medication High Risk 11/27/2008 ROEL MORTICIAN INVESTIGATOR, GODWIN V58.69 Medication High Risk 11/27/2008 MADL MORTICIAN INVESTIGATOR, FLO L V58.69 Medication High Risk 11/27/2008 ROEL MORTICIAN INVESTIGATOR, GODWIN V58.69 Medication High Risk 11/27/2008 ROEL MORTICIAN INVESTIGATOR, GODWIN V58.69 Medication High Risk 11/27/2008 MADL MORTICIAN INVESTIGATOR, FLO L V58.69 Medication High Risk 11/27/2008 MADL MORTICIAN INVESTIGATOR, FLO L V58.69 Medication High Risk 11/27/2008 ROEL MORTICIAN INVESTIGATOR, GODWIN V58.69 Medication High Risk 11/27/2008 SONNY MENG, ELIAS A V58.69 Medication High Risk 11/27/2008 [facility], DEMOND R V58.69 Medication High Risk 11/27/2008 MADL MORTICIAN INVESTIGATOR, FLO L V58.69 Medication High Risk 11/27/2008 SILVERIO DDSSALVADORW V58.69 Medication High Risk 11/27/2008 [facility], DEMOND R V58.69 Medication High Risk 11/27/2008 [facility], DEMOND R V58.69 Medication High Risk 11/27/2008 ROEL MORTICIAN INVESTIGATOR, GODWIN V58.69 Medication High Risk 11/27/2008 MANUEL DOMARALA K V58.69 Medication High Risk 11/27/2008 ROEL MORTICIAN INVESTIGATOR, GODWIN V58.69 Medication High Risk 11/27/2008 ROEL MORTICIAN INVESTIGATOR, GODWIN V58.69 Medication High Risk 07/01/2009 WOLF [...] JAMA MD 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 07/01/2009 ROEL MORTICIAN INVESTIGATOR, GODWIN 296.32 MO DEPRESSIVE RECURRENT MODERATE 07/01/2009 ROEL MORTICIAN INVESTIGATOR, GODWIN 300.00 AN ANXIETY UNSPEC 07/01/2009 ROEL MORTICIAN INVESTIGATOR, GODWIN 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 07/01/2009 MADL MORTICIAN INVESTIGATOR, FLO L 296.32 MO DEPRESSIVE RECURRENT MODERATE 07/01/2009 MADL MORTICIAN INVESTIGATOR, FLO L 300.00 AN ANXIETY UNSPEC 07/01/2009 MADL MORTICIAN INVESTIGATOR, FLO L 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 07/01/2009 ROEL MORTICIAN INVESTIGATOR, GODWIN 296.32 MO DEPRESSIVE RECURRENT MODERATE 07/01/2009 ROEL MORTICIAN INVESTIGATOR, GODWIN 300.00 AN ANXIETY UNSPEC 07/01/2009 ROEL MORTICIAN INVESTIGATOR, GODWIN 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 07/01/2009 MADL MORTICIAN INVESTIGATOR, FLO L 296.32 MO DEPRESSIVE RECURRENT MODERATE 07/01/2009 MADL MORTICIAN INVESTIGATOR, FLO L 300.00 AN ANXIETY UNSPEC 07/01/2009 MADL MORTICIAN INVESTIGATOR, FLO L 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 07/01/2009 ROEL MORTICIAN INVESTIGATOR, GODWIN 296.32 MO DEPRESSIVE RECURRENT MODERATE 07/01/2009 ROEL MORTICIAN INVESTIGATOR, GODWIN 300.00 AN ANXIETY UNSPEC 07/01/2009 ROEL MORTICIAN INVESTIGATOR, GODWIN 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 07/01/2009 ROEL MORTICIAN INVESTIGATOR, GODWIN 296.32 MO DEPRESSIVE RECURRENT MODERATE 07/01/2009 ROEL MORTICIAN INVESTIGATOR, GODWIN 300.00 AN ANXIETY UNSPEC 07/01/2009 ROEL MORTICIAN INVESTIGATOR, GODWIN 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 07/01/2009 MADL MORTICIAN INVESTIGATOR, FLO L 296.32 MO DEPRESSIVE RECURRENT MODERATE 07/01/2009 MADL MORTICIAN INVESTIGATOR, FLO L 300.00 AN ANXIETY UNSPEC 07/01/2009 ROSITA GONAZLEZ APRNA L 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 07/01/2009 ROSITA GONZALEZ APRNA L 296.32 MO DEPRESSIVE RECURRENT MODERATE 07/01/2009 EARNESTINE GONZALEZ APRNNYA L 300.00 AN ANXIETY UNSPEC 07/01/2009 ROSITA GONZALEZ APRNA L 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 07/01/2009 ROEL MORTICIAN INVESTIGATOR, GODWIN 296.32 MO DEPRESSIVE RECURRENT MODERATE 07/01/2009 ROEL MORTICIAN INVESTIGATOR, GODWIN 300.00 AN ANXIETY UNSPEC 07/01/2009 ROEL MORTICIAN INVESTIGATOR, GODWIN 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 07/01/2009 SONNY APRN, ELIAS A 296.32 MO DEPRESSIVE RECURRENT MODERATE 07/01/2009 SONNY APRN, ELIAS A 300.00 AN ANXIETY UNSPEC 07/01/2009 SONNY MENG, ELIAS A 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 07/01/2009 [facility], DEMOND R 296.32 MO DEPRESSIVE RECURRENT MODERATE 07/01/2009 [facility], DEMOND R 300.00 AN ANXIETY UNSPEC 07/01/2009 [facility], DEMOND R 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 07/01/2009 FLO GONZALEZ APRN L 296.32 MO DEPRESSIVE RECURRENT MODERATE 07/01/2009 FLO GONZALEZ APRN L 300.00 AN ANXIETY UNSPEC 07/01/2009 ROSITA GONZALEZ APRNA L 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 07/01/2009 SILVERIO DDS, JOSE 296.32 MO DEPRESSIVE RECURRENT MODERATE 07/01/2009 SILVERIO DDS, JOSE 300.00 AN ANXIETY UNSPEC 07/01/2009 SILVERIO DDS, JOSE 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 07/01/2009 [facility], DEMOND R 296.32 MO DEPRESSIVE RECURRENT MODERATE 07/01/2009 [facility], DEMOND R 300.00 AN ANXIETY UNSPEC 07/01/2009 [facility], DEMOND R 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 07/01/2009 [facility], DEMOND R 296.32 MO DEPRESSIVE RECURRENT MODERATE 07/01/2009 [facility], DEMOND R 300.00 AN ANXIETY UNSPEC 07/01/2009 [facility], DEMOND R 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 07/01/2009 ROEL MORTICIAN INVESTIGATOR, GODWIN 296.32 MO DEPRESSIVE RECURRENT MODERATE 07/01/2009 ROEL MORTICIAN INVESTIGATOR, GODWIN 300.00 AN ANXIETY UNSPEC 07/01/2009 ROEL MORTICIAN INVESTIGATOR, GODWIN 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 07/01/2009 NICOLA MANUEL DO K 296.32 MO DEPRESSIVE RECURRENT MODERATE 07/01/2009 NICOLA MANUEL DO K 300.00 AN ANXIETY UNSPEC 07/01/2009 NICOLA MANUEL DO K 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 07/01/2009 ROEL MORTICIAN INVESTIGATOR, GODWIN 296.32 MO DEPRESSIVE RECURRENT MODERATE 07/01/2009 ROEL MORTICIAN INVESTIGATOR, GODWIN 300.00 AN ANXIETY UNSPEC 07/01/2009 ROEL MORTICIAN INVESTIGATOR, GODWIN 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 07/01/2009 ROEL MORTICIAN INVESTIGATOR, GODWIN 296.32 MO DEPRESSIVE RECURRENT MODERATE 07/01/2009 ROEL MORTICIAN INVESTIGATOR, GODWIN 300.00 AN ANXIETY UNSPEC 07/01/2009 ROEL MORTICIAN INVESTIGATOR, GODWIN 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 07/16/2009 WOLF JAMA [...] AN PANIC DIS W/O AGORA 07/16/2009 MADL MORTICIAN INVESTIGATOR, FLO L 300.01 AN PANIC DIS W/O AGORA 07/16/2009 ROEL MORTICIAN INVESTIGATOR, GODWIN 300.01 AN PANIC DIS W/O AGORA 07/16/2009 MADL MORTICIAN INVESTIGATOR, FLO L 300.01 AN PANIC DIS W/O AGORA 07/16/2009 ROEL MORTICIAN INVESTIGATOR, GODWIN 300.01 AN PANIC DIS W/O AGORA 07/16/2009 ROEL MORTICIAN INVESTIGATOR, GODWIN 300.01 AN PANIC DIS W/O AGORA 07/16/2009 MADL MORTICIAN INVESTIGATOR FLO L 300.01 AN PANIC DIS W/O AGORA 07/16/2009 MADL MORTICIAN INVESTIGATOR, FLO L 300.01 AN PANIC DIS W/O AGORA 07/16/2009 ROEL MORTICIAN INVESTIGATOR, GODWIN 300.01 AN PANIC DIS W/O AGORA 07/16/2009 SONNY MENG ELIAS A 300.01 AN PANIC DIS W/O AGORA 07/16/2009 [facility], DEMOND R 300.01 AN PANIC DIS W/O AGORA 07/16/2009 MADL MORTICIAN INVESTIGATORROSITA KirkpatrickA L 300.01 AN PANIC DIS W/O AGORA 07/16/2009 NUSRAT BAKER, JOSE 300.01 AN PANIC DIS W/O AGORA 07/16/2009 [facility], DEMOND R 300.01 AN PANIC DIS W/O AGORA 07/16/2009 [facility], DEMOND R 300.01 AN PANIC DIS W/O AGORA 07/16/2009 ROEL MORTICIAN INVESTIGATOR, GODWIN 300.01 AN PANIC DIS W/O AGORA 07/16/2009 NICOLA MANUEL DO 300.01 AN PANIC DIS W/O AGORA 07/16/2009 ROEL MORTICIAN INVESTIGATOR, GODWIN 300.01 AN PANIC DIS W/O AGORA 07/16/2009 ROEL MORTICIAN INVESTIGATOR, GODWIN 300.01 AN PANIC DIS W/O AGORA [...] DDS 307.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 07/25/2009 GARTON MORTICIAN INVESTIGATORJASON Kirkpatrick 307.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 07/25/2009 GARTON MORTICIAN INVESTIGATOR, JASON Steel 307.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 07/25/2009 GARTON MORTICIAN INVESTIGATOR, JASON Steel 307.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 07/25/2009 WOLF JAMA MD 307.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 07/25/2009 ROEL MORTICIAN INVESTIGATOR, GODWIN 307.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 07/25/2009 MADL MORTICIAN INVESTIGATOR, FLO L 307.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 07/25/2009 ROEL MORTICIAN INVESTIGATOR, GODWIN 307.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 07/25/2009 MADL MORTICIAN INVESTIGATOR, FLO L 307.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 07/25/2009 ROEL MORTICIAN INVESTIGATOR, GODWIN 307.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 07/25/2009 ROEL MORTICIAN INVESTIGATOR, GODWIN 307.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 07/25/2009 MADL MORTICIAN INVESTIGATOR, FLO L 307.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 07/25/2009 MADL MORTICIAN INVESTIGATOR, FLO L 307.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 07/25/2009 ROEL MORTICIAN INVESTIGATOR, GODWIN 307.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 07/25/2009 SONNY MORTICIAN INVESTIGATOR, ELIAS A 307.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 07/25/2009 [facility], DEMOND R 307.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 07/25/2009 MADL MORTICIAN INVESTIGATOR, FLO L 307.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 07/25/2009 NUSRAT JENKINSS, JOSE 307.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 07/25/2009 [facility], DEMOND R 307.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 07/25/2009 [facility], DEMOND R 307.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 07/25/2009 ROEL MORTICIAN INVESTIGATOR, GODWIN 307.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 07/25/2009 NICOLA MANUEL DO 307.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 07/25/2009 ROEL MORTICIAN INVESTIGATOR, GODWIN 307.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 07/25/2009 ROEL MORTICIAN INVESTIGATOR, GODWIN 307.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 12/17/2009 WOLF [...] MD 311 DEPRESSIVE DISORDER NOS 12/17/2009 ROEL MORTICIAN INVESTIGATOR, GODWIN 311 DEPRESSIVE DISORDER NOS 12/17/2009 MADL MORTICIAN INVESTIGATOR, FLO L 311 DEPRESSIVE DISORDER NOS 12/17/2009 ROEL MORTICIAN INVESTIGATOR, GODWIN 311 DEPRESSIVE DISORDER NOS 12/17/2009 MADL MORTICIAN INVESTIGATOR, FLO L 311 DEPRESSIVE DISORDER NOS 12/17/2009 ROEL MORTICIAN INVESTIGATOR, GODWIN 311 DEPRESSIVE DISORDER NOS 12/17/2009 ROEL MORTICIAN INVESTIGATOR, GODWIN 311 DEPRESSIVE DISORDER NOS 12/17/2009 MADL MORTICIAN INVESTIGATOR, FLO L 311 DEPRESSIVE DISORDER NOS 12/17/2009 MADL MORTICIAN INVESTIGATOR, FLO L 311 DEPRESSIVE DISORDER NOS 12/17/2009 ROEL MORTICIAN INVESTIGATOR, GODWIN 311 DEPRESSIVE DISORDER NOS 12/17/2009 SONNY MORTICIAN INVESTIGATOR, ELIAS A 311 DEPRESSIVE DISORDER NOS 12/17/2009 [facility], DEMOND R 311 DEPRESSIVE DISORDER NOS 12/17/2009 LISA MORTICIAN INVESTIGATOR, FLO Alfred 311 DEPRESSIVE DISORDER NOS 12/17/2009 JOSE SILVERIO DDS 311 DEPRESSIVE DISORDER NOS 12/17/2009 [facility], DEMOND R 311 DEPRESSIVE DISORDER NOS 12/17/2009 [facility], DEMOND R 311 DEPRESSIVE DISORDER NOS 12/17/2009 ROEL MORTICIAN INVESTIGATOR, GODWIN 311 DEPRESSIVE DISORDER NOS 12/17/2009 NICOLA MANUEL DO 311 DEPRESSIVE DISORDER NOS 12/17/2009 ROEL MORTICIAN INVESTIGATOR, GODWIN 311 DEPRESSIVE DISORDER NOS 12/17/2009 ROEL MORTICIAN INVESTIGATOR, GODWIN 311 DEPRESSIVE DISORDER NOS 05/06/2010 Ot 620.2 05/06/2010 Ot 789.04 05/13/2010 WOLF JAMA MD V72.31 Mail Service Coordinator Exam, Routine 05/13/2010 WOLF JAMA MD V72.31 Mail Service Coordinator Exam, Routine 05/13/2010 V72.31 Mail Service Coordinator Exam, Routine 05/13/2010 NICOLA MANUEL DO V72.31 Mail Service Coordinator Exam, Routine 05/13/2010 JASON SOLANO DO V72.31 Mail Service Coordinator Exam, Routine 05/13/2010 V72.31 Mail Service Coordinator Exam, Routine 05/13/2010 V72.31 Mail Service Coordinator Exam, Routine 05/13/2010 V72.31 Mail Service Coordinator Exam, Routine 05/13/2010 V72.31 Mail Service Coordinator Exam, Routine 05/13/2010 V72.31 Mail Service Coordinator Exam, Routine 05/13/2010 V72.31 Mail Service Coordinator Exam, Routine 05/13/2010 V72.31 Mail Service Coordinator Exam, Routine 05/13/2010 V72.31 Mail Service Coordinator Exam, Routine 05/13/2010 V72.31 Mail Service Coordinator Exam, Routine 05/13/2010 V72.31 Mail Service Coordinator Exam, Routine 05/13/2010 V72.31 Mail Service Coordinator Exam, Routine 05/13/2010 NICOLA MANUEL DO V72.31 Mail Service Coordinator Exam, Routine 05/13/2010 JASON HUNTER APRN V72.31 Mail Service Coordinator Exam, Routine 05/13/2010 WOLF JAMA MD V72.31 Mail Service Coordinator Exam, Routine 05/13/2010 NICOLA MANUEL DO V72.31 Mail Service Coordinator Exam, Routine 05/13/2010 IDALIA BAKER, KELY Dickens V72.31 Mail Service Coordinator Exam, Routine 05/13/2010 JASON HUNTER APRN V72.31 Mail Service Coordinator Exam, Routine 05/13/2010 JASON HUNTER APRN V72.31 Mail Service Coordinator Exam, Routine 05/13/2010 JASON HUNTER APRN V72.31 Mail Service Coordinator Exam, Routine 05/13/2010 WOLF JAMA MD V72.31 Mail Service Coordinator Exam, Routine 05/13/2010 ROEL MORTICIAN INVESTIGATOR, GODWIN V72.31 Mail Service Coordinator Exam, Routine 05/13/2010 MADL MORTICIAN INVESTIGATOR, FLO L V72.31 Mail Service Coordinator Exam, Routine 05/13/2010 ROEL MORTICIAN INVESTIGATOR, GODWIN V72.31 Mail Service Coordinator Exam, Routine 05/13/2010 MADL MORTICIAN INVESTIGATOR, FLO L V72.31 Mail Service Coordinator Exam, Routine 05/13/2010 ROEL MORTICIAN INVESTIGATOR, GODWIN V72.31 Mail Service Coordinator Exam, Routine 05/13/2010 ROEL MORTICIAN INVESTIGATOR, GODWIN V72.31 Mail Service Coordinator Exam, Routine 05/13/2010 MADL MORTICIAN INVESTIGATOR, FLO L V72.31 Mail Service Coordinator Exam, Routine 05/13/2010 MADL MORTICIAN INVESTIGATOR, FLO L V72.31 Mail Service Coordinator Exam, Routine 05/13/2010 ROEL MORTICIAN INVESTIGATOR, GODWIN V72.31 Mail Service Coordinator Exam, Routine 05/13/2010 SONNY MENG, ELIAS A V72.31 Mail Service Coordinator Exam, Routine 05/13/2010 [facility], DEMOND R V72.31 Mail Service Coordinator Exam, Routine 05/13/2010 MADL MORTICIAN INVESTIGATOR, FLO L V72.31 Mail Service Coordinator Exam, Routine 05/13/2010 JOSE SILVERIO DDS V72.31 Mail Service Coordinator Exam, Routine 05/13/2010 [facility], DEMOND R V72.31 Mail Service Coordinator Exam, Routine 05/13/2010 [facility], DEMOND R V72.31 Mail Service Coordinator Exam, Routine 05/13/2010 ROEL MORTICIAN INVESTIGATOR, GODWIN V72.31 Mail Service Coordinator Exam, Routine 05/13/2010 NICOLA MANUEL DO V72.31 Mail Service Coordinator Exam, Routine 05/13/2010 ROEL MORTICIAN INVESTIGATOR, GODWIN V72.31 Mail Service Coordinator Exam, Routine 05/13/2010 ROEL MORTICIAN INVESTIGATOR, GODWIN V72.31 Mail Service Coordinator Exam, Routine 05/26/2010 Ot 526.9 05/26/2010 Ot [...] WOLF JAMA MD 276.8 Hypopotassemia 09/29/2011 ROEL MORTICIAN INVESTIGATOR, GODWIN 276.8 Hypopotassemia 09/29/2011 LISA MORTICIAN INVESTIGATOR, FLO L 276.8 Hypopotassemia 09/29/2011 ROEL MORTICIAN INVESTIGATOR, GODWIN 276.8 Hypopotassemia 09/29/2011 LISA MORTICIAN INVESTIGATOR, FLO L 276.8 Hypopotassemia 09/29/2011 ROEL MORTICIAN INVESTIGATOR, GODWIN 276.8 Hypopotassemia 09/29/2011 ROEL MORTICIAN INVESTIGATOR, GODWIN 276.8 Hypopotassemia 09/29/2011 LISA MORTICIAN INVESTIGATOR, FLO L 276.8 Hypopotassemia 09/29/2011 LISA MENG, FLO L 276.8 Hypopotassemia 09/29/2011 ROEL MORTICIAN INVESTIGATOR, GODWIN 276.8 Hypopotassemia 09/29/2011 SONNY MORTICIAN INVESTIGATOR, ELIAS A 276.8 Hypopotassemia 09/29/2011 [facility], DEMOND R 276.8 Hypopotassemia 09/29/2011 LISA MORTICIAN INVESTIGATOR, FLO Alfred 276.8 Hypopotassemia 09/29/2011 NUSRAT DDS, JOSE 276.8 Hypopotassemia 09/29/2011 [facility], DEMOND R 276.8 Hypopotassemia 09/29/2011 [facility], DEMOND R 276.8 Hypopotassemia 09/29/2011 ROEL MORTICIAN INVESTIGATOR, GODWIN 276.8 Hypopotassemia 09/29/2011 NICOLA MANUEL DO 276.8 Hypopotassemia 09/29/2011 ROEL MORTICIAN INVESTIGATOR, GODWIN 276.8 Hypopotassemia 09/29/2011 ROEL MORTICIAN INVESTIGATOR, GODWIN 276.8 Hypopotassemia 12/13/2011 WOLF JAMA MD [...] Unspecified Disease Of The Jaws 12/13/2011 GARTON MORTICIAN INVESTIGATORJASON Kirkpatrick 526.9 Unspecified Disease Of The Jaws 12/13/2011 GARTON MORTICIAN INVESTIGATORJASON Kirkpatrick 526.9 Unspecified Disease Of The Jaws 12/13/2011 JASON HUNTER APRN 526.9 Unspecified Disease Of The Jaws 12/13/2011 WOLF JAMA MD 526.9 Unspecified Disease Of The Jaws 12/13/2011 ROEL MORTICIAN INVESTIGATOR, GODWIN 526.9 Unspecified Disease Of The Jaws 12/13/2011 MADL MORTICIAN INVESTIGATOR, FLO L 526.9 Unspecified Disease Of The Jaws 12/13/2011 ROEL MORTICIAN INVESTIGATOR, GODWIN 526.9 Unspecified Disease Of The Jaws 12/13/2011 MADL MORTICIAN INVESTIGATOR, FLO L 526.9 Unspecified Disease Of The Jaws 12/13/2011 ROEL MORTICIAN INVESTIGATOR, GODWIN 526.9 Unspecified Disease Of The Jaws 12/13/2011 ROEL MORTICIAN INVESTIGATOR, GODWIN 526.9 Unspecified Disease Of The Jaws 12/13/2011 MADL MORTICIAN INVESTIGATOR, FLO L 526.9 Unspecified Disease Of The Jaws 12/13/2011 MADL MORTICIAN INVESTIGATOR, FLO L 526.9 Unspecified Disease Of The Jaws 12/13/2011 ROEL MORTICIAN INVESTIGATOR, GODWIN 526.9 Unspecified Disease Of The Jaws 12/13/2011 ELIAS DENNIS APRN 526.9 Unspecified Disease Of The Jaws 12/13/2011 [facility], DEMOND R 526.9 Unspecified Disease Of The Jaws 12/13/2011 MADL MORTICIAN INVESTIGATOR, FLO L 526.9 Unspecified Disease Of The Jaws 12/13/2011 NUSRAT BAKER, JOSE 526.9 Unspecified Disease Of The Jaws 12/13/2011 [facility], DEMOND R 526.9 Unspecified Disease Of The Jaws 12/13/2011 [facility], DEMOND R 526.9 Unspecified Disease Of The Jaws 12/13/2011 ROEL MORTICIAN INVESTIGATOR, GODWIN 526.9 Unspecified Disease Of The Jaws 12/13/2011 NICOLA MANUEL DO 526.9 Unspecified Disease Of The Jaws 12/13/2011 ROEL MORTICIAN INVESTIGATOR, GODWIN 526.9 Unspecified Disease Of The Jaws 12/13/2011 ROEL MORTICIAN INVESTIGATOR, GODWIN 526.9 Unspecified Disease Of The Jaws [...] 427.89 Other Specified Cardiac Dysrhythmias 12/29/2011 MADL MORTICIAN INVESTIGATOR, FLO L V25.9 Contraception Management 12/29/2011 MADL MORTICIAN INVESTIGATOR, FLO L V76.2 Cervical Cancer Screening (pap Smear) 12/29/2011 ROEL MORTICIAN INVESTIGATOR, GODWIN 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 12/29/2011 ROEL MORTICIAN INVESTIGATOR, GODWIN 427.89 Other Specified Cardiac Dysrhythmias 12/29/2011 ROEL MORTICIAN INVESTIGATOR, GODWIN V25.9 Contraception Management 12/29/2011 ROEL MORTICIAN INVESTIGATOR, GODWIN V76.2 Cervical Cancer Screening (pap Smear) 12/29/2011 MADL MORTICIAN INVESTIGATOR, FLO L 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 12/29/2011 MADL MORTICIAN INVESTIGATOR, FLO L 427.89 Other Specified Cardiac Dysrhythmias 12/29/2011 MADL MORTICIAN INVESTIGATOR, FLO L V25.9 Contraception Management 12/29/2011 MADL MORTICIAN INVESTIGATOR, FLO L V76.2 Cervical Cancer Screening (pap Smear) 12/29/2011 ROEL MORTICIAN INVESTIGATOR, GODWIN 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 12/29/2011 ROEL MORTICIAN INVESTIGATOR, GODWIN 427.89 Other Specified Cardiac Dysrhythmias 12/29/2011 ROEL MORTICIAN INVESTIGATOR, GODWIN V25.9 Contraception Management 12/29/2011 ROEL MORTICIAN INVESTIGATOR, GODWIN V76.2 Cervical Cancer Screening (pap Smear) 12/29/2011 ROEL MORTICIAN INVESTIGATOR, GODWIN 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 12/29/2011 ROEL MORTICIAN INVESTIGATOR, GODWIN 427.89 Other Specified Cardiac Dysrhythmias 12/29/2011 ROEL MORTICIAN INVESTIGATOR, GODWIN V25.9 Contraception Management 12/29/2011 ROEL MORTICIAN INVESTIGATOR, GODWIN V76.2 Cervical Cancer Screening (pap Smear) 12/29/2011 MADL MORTICIAN INVESTIGATOR, FLO L 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 12/29/2011 MADL MORTICIAN INVESTIGATOR, FLO L 427.89 Other Specified Cardiac Dysrhythmias 12/29/2011 MADL MORTICIAN INVESTIGATOR, FLO L V25.9 Contraception Management 12/29/2011 MADL MORTICIAN INVESTIGATOR, FLO L V76.2 Cervical Cancer Screening (pap Smear) 12/29/2011 MADL MORTICIAN INVESTIGATOR, FLO L 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 12/29/2011 MADL MORTICIAN INVESTIGATOR, FLO L 427.89 Other Specified Cardiac Dysrhythmias 12/29/2011 MADL MORTICIAN INVESTIGATOR, FLO L V25.9 Contraception Management 12/29/2011 MADL MORTICIAN INVESTIGATOR, FLO L V76.2 Cervical Cancer Screening (pap Smear) 12/29/2011 MICHAEL SEVILLA APRNETTE 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 12/29/2011 ROEL MORTICIAN INVESTIGATOR, GODWIN 427.89 Other Specified Cardiac Dysrhythmias 12/29/2011 ROEL MORTICIAN INVESTIGATOR, GODWIN V25.9 Contraception Management 12/29/2011 ROEL MORTICIAN INVESTIGATOR, GODWIN V76.2 Cervical Cancer Screening (pap Smear) 12/29/2011 SONNY APRN, ELIAS A 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 12/29/2011 SONNY MORTICIAN INVESTIGATOR, ELIAS A 427.89 Other Specified Cardiac Dysrhythmias 12/29/2011 SONNY MORTICIAN INVESTIGATOR, ELIAS A V25.9 Contraception Management 12/29/2011 SONNY MORTICIAN INVESTIGATOR, ELIAS A V76.2 Cervical Cancer Screening (pap Smear) 12/29/2011 [facility], DEMOND R 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 12/29/2011 [facility], DEMOND R 427.89 Other Specified Cardiac Dysrhythmias 12/29/2011 [facility], DEMOND R V25.9 Contraception Management 12/29/2011 [facility], DEMOND R V76.2 Cervical Cancer Screening (pap Smear) 12/29/2011 LISA MENG, FLO L 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 12/29/2011 LISA MENG, FLO L 427.89 Other Specified Cardiac Dysrhythmias 12/29/2011 BRYANL MORTICIAN INVESTIGATOR, FLO L V25.9 Contraception Management 12/29/2011 MADL MORTICIAN INVESTIGATOR, FLO L V76.2 Cervical Cancer Screening (pap Smear) 12/29/2011 JOSE SILVERIO DDS 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 12/29/2011 NUSRAT JENKINSSJOSE 427.89 Other Specified Cardiac Dysrhythmias 12/29/2011 SILVERIO DDSJOSE V25.9 Contraception Management 12/29/2011 NUSRAT JENKINSSJOSE V76.2 Cervical Cancer Screening (pap Smear) 12/29/2011 [facility], DEMOND R 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 12/29/2011 [facility], DEMOND R 427.89 Other Specified Cardiac Dysrhythmias 12/29/2011 [facility], DEMOND R V25.9 Contraception Management 12/29/2011 [facility], DEMOND R V76.2 Cervical Cancer Screening (pap Smear) 12/29/2011 [facility], DEMOND R 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 12/29/2011 [facility], DEMOND R 427.89 Other Specified Cardiac Dysrhythmias 12/29/2011 [facility], DEMOND R V25.9 Contraception Management 12/29/2011 [facility], DEMOND R V76.2 Cervical Cancer Screening (pap Smear) 12/29/2011 ROEL MORTICIAN INVESTIGATOR, GODWIN 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 12/29/2011 ROEL MORTICIAN INVESTIGATOR, GODWIN 427.89 Other Specified Cardiac Dysrhythmias 12/29/2011 ROEL MORTICIAN INVESTIGATOR, GODWIN V25.9 Contraception Management 12/29/2011 ROEL MORTICIAN INVESTIGATOR, GODWIN V76.2 Cervical Cancer Screening (pap Smear) 12/29/2011 NICOLA MANUEL DO 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 12/29/2011 NICOLA MANUEL DO 427.89 Other Specified Cardiac Dysrhythmias 12/29/2011 NICOLA MANUEL DO V25.9 Contraception Management 12/29/2011 NICOLA MANUEL DO V76.2 Cervical Cancer Screening (pap Smear) 12/29/2011 ROEL MORTICIAN INVESTIGATOR, GODWIN 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 12/29/2011 ROEL MORTICIAN INVESTIGATOR, GODWIN 427.89 Other Specified Cardiac Dysrhythmias 12/29/2011 ROEL MORTICIAN INVESTIGATOR, GODWIN V25.9 Contraception Management 12/29/2011 ROEL MORTICIAN INVESTIGATOR, GODWIN V76.2 Cervical Cancer Screening (pap Smear) 12/29/2011 ROEL MORTICIAN INVESTIGATOR, GODWIN 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 12/29/2011 ROEL MORTICIAN INVESTIGATOR, GODWIN 427.89 Other Specified Cardiac Dysrhythmias 12/29/2011 ROEL MORTICIAN INVESTIGATOR, GODWIN V25.9 Contraception Management 12/29/2011 ROEL MORTICIAN INVESTIGATOR, GODWIN V76.2 Cervical Cancer Screening (pap Smear) [...] DO 786.50 Unspecified Chest Pain 01/25/2012 NICOLA MANULE DO 795.03 Papanicolaou Smear Of Cervix With [...] Grade Squamous Intraepithelial Lesion (lgsil) 01/25/2012 ROEL MORTICIAN INVESTIGATOR, GODWIN 427.9 Arrhythmia, Cardiac (sinus) 01/25/2012 ROEL MORTICIAN INVESTIGATOR, GODWIN 786.50 Unspecified Chest Pain 01/25/2012 ROEL MORTICIAN INVESTIGATOR, GODWIN 795.03 Papanicolaou Smear Of Cervix With Low Grade Squamous Intraepithelial Lesion (lgsil) 01/25/2012 MADL MORTICIAN INVESTIGATOR, FLO L 427.9 Arrhythmia, Cardiac (sinus) 01/25/2012 MADL MORTICIAN INVESTIGATOR, FLO L 786.50 Unspecified Chest Pain 01/25/2012 MADL MORTICIAN INVESTIGATOR, FLO L 795.03 Papanicolaou Smear Of Cervix With Low Grade Squamous Intraepithelial Lesion (lgsil) 01/25/2012 ROEL MORTICIAN INVESTIGATOR, GODWIN 427.9 Arrhythmia, Cardiac (sinus) 01/25/2012 ROEL MORTICIAN INVESTIGATOR, GODWIN 786.50 Unspecified Chest Pain 01/25/2012 ROEL MORTICIAN INVESTIGATOR, GODWIN 795.03 Papanicolaou Smear Of Cervix With Low Grade Squamous Intraepithelial Lesion (lgsil) 01/25/2012 MADL MORTICIAN INVESTIGATOR, FLO L 427.9 Arrhythmia, Cardiac (sinus) 01/25/2012 MADL MORTICIAN INVESTIGATOR, FLO L 786.50 Unspecified Chest Pain 01/25/2012 MADL MORTICIAN INVESTIGATOR, FLO L 795.03 Papanicolaou Smear Of Cervix With Low Grade Squamous Intraepithelial Lesion (lgsil) 01/25/2012 ROEL MORTICIAN INVESTIGATOR, GODWIN 427.9 Arrhythmia, Cardiac (sinus) 01/25/2012 ROEL MORTICIAN INVESTIGATOR, GODWIN 786.50 Unspecified Chest Pain 01/25/2012 ROEL MORTICIAN INVESTIGATOR, GODWIN 795.03 Papanicolaou Smear Of Cervix With Low Grade Squamous Intraepithelial Lesion (lgsil) 01/25/2012 ROEL MORTICIAN INVESTIGATOR, GODWIN 427.9 Arrhythmia, Cardiac (sinus) 01/25/2012 ROEL MORTICIAN INVESTIGATOR, GODWIN 786.50 Unspecified Chest Pain 01/25/2012 ROEL MORTICIAN INVESTIGATOR, GODWIN 795.03 Papanicolaou Smear Of Cervix With Low Grade Squamous Intraepithelial Lesion (lgsil) 01/25/2012 MADL MORTICIAN INVESTIGATOR, FLO L 427.9 Arrhythmia, Cardiac (sinus) 01/25/2012 MADL MORTICIAN INVESTIGATOR, FLO L 786.50 Unspecified Chest Pain 01/25/2012 MADL MORTICIAN INVESTIGATOR, FLO L 795.03 Papanicolaou Smear Of Cervix With Low Grade Squamous Intraepithelial Lesion (lgsil) 01/25/2012 MADL MORTICIAN INVESTIGATOR, FLO L 427.9 Arrhythmia, Cardiac (sinus) 01/25/2012 MADL MORTICIAN INVESTIGATOR, FLO L 786.50 Unspecified Chest Pain 01/25/2012 MADL MORTICIAN INVESTIGATOR, FLO L 795.03 Papanicolaou Smear Of Cervix With Low Grade Squamous Intraepithelial Lesion (lgsil) 01/25/2012 ROEL MORTICIAN INVESTIGATOR, GODWIN 427.9 Arrhythmia, Cardiac (sinus) 01/25/2012 ROEL MORTICIAN INVESTIGATOR, GODWIN 786.50 Unspecified Chest Pain 01/25/2012 ROEL MORTICIAN INVESTIGATOR, GODWIN 795.03 Papanicolaou Smear Of Cervix With Low Grade Squamous Intraepithelial Lesion (lgsil) 01/25/2012 CARMINA DENNIS APRNIDI A 427.9 Arrhythmia, Cardiac (sinus) 01/25/2012 SONNY MENG ELIAS A 786.50 Unspecified Chest Pain 01/25/2012 SONNY MENG ELIAS A 795.03 Papanicolaou Smear Of Cervix With Low Grade Squamous Intraepithelial Lesion (lgsil) [facility]2012 [facility] 427.9 Arrhythmia, Cardiac (sinus) 01/25/2012 [facility] 786.50 Unspecified Chest Pain 01/25/2012 [facility] 795.03 Papanicolaou Smear Of Cervix With Low Grade Squamous Intraepithelial Lesion (lgsil) 01/25/2012 MADL MORTICIAN INVESTIGATOR, FLO L 427.9 Arrhythmia, Cardiac (sinus) 01/25/2012 MADL MORTICIAN INVESTIGATOR, FLO L 786.50 Unspecified Chest Pain 01/25/2012 LISA MENG, FLO L 795.03 Papanicolaou Smear Of Cervix With Low Grade Squamous Intraepithelial Lesion (lgsil) 01/25/2012 NUSRAT JENKINSSJOSE 427.9 Arrhythmia, Cardiac (sinus) 01/25/2012 SILVERIO DDS, JOSE 786.50 Unspecified Chest Pain 01/25/2012 NUSRAT DDS, JOSE 795.03 Papanicolaou Smear Of Cervix With Low Grade Squamous Intraepithelial Lesion (lgsil) 01/25/2012 [facility], DEMOND R 427.9 Arrhythmia, Cardiac (sinus) 01/25/2012 [facility], DEMOND R 786.50 Unspecified Chest Pain 01/25/2012 [facility], DEMOND R 795.03 Papanicolaou Smear Of Cervix With Low Grade Squamous Intraepithelial Lesion (lgsil) 01/25/2012 [facility], DEMOND R 427.9 Arrhythmia, Cardiac (sinus) 01/25/2012 [facility], DEMOND R 786.50 Unspecified Chest Pain 01/25/2012 [facility], DEMOND R 795.03 Papanicolaou Smear Of Cervix With Low Grade Squamous Intraepithelial Lesion (lgsil) 01/25/2012 ROEL MORTICIAN INVESTIGATOR, GODWIN 427.9 Arrhythmia, Cardiac (sinus) 01/25/2012 ROEL MORTICIAN INVESTIGATOR, GODWIN 786.50 Unspecified Chest Pain 01/25/2012 ROEL MORTICIAN INVESTIGATOR, GODWIN 795.03 Papanicolaou Smear Of Cervix With Low Grade Squamous Intraepithelial Lesion (lgsil) 01/25/2012 [facility] NICOLA K 427.9 Arrhythmia, Cardiac (sinus) 01/25/2012 MANUEL DO NICOLA K 786.50 Unspecified Chest Pain 01/25/2012 [facility]ON NICOLA K 795.03 Papanicolaou Smear Of Cervix With Low Grade Squamous Intraepithelial Lesion (lgsil) 01/25/2012 ROEL MORTICIAN INVESTIGATOR, GODWIN 427.9 Arrhythmia, Cardiac (sinus) 01/25/2012 ROEL MORTICIAN INVESTIGATOR, GODWIN 786.50 Unspecified Chest Pain 01/25/2012 ROEL MORTICIAN INVESTIGATOR, GODWIN 795.03 Papanicolaou Smear Of Cervix With Low Grade Squamous Intraepithelial Lesion (lgsil) 01/25/2012 ROEL MORTICIAN INVESTIGATOR, GODWIN 427.9 Arrhythmia, Cardiac (sinus) 01/25/2012 GODWIN [...] MENG GODWIN 789.00 abdominal pain 06/25/2012 MADL MORTICIAN INVESTIGATOR, FLO L 724.5 Backache Unspecified 06/25/2012 MADL MORTICIAN INVESTIGATOR, FLO L 789.00 abdominal pain 06/25/2012 ROEL MORTICIAN INVESTIGATOR, GODWIN 724.5 Backache Unspecified 06/25/2012 ROEL MORTICIAN INVESTIGATOR, GODWIN 789.00 abdominal pain 06/25/2012 ROEL MORTICIAN INVESTIGATOR, GODWIN 724.5 Backache Unspecified 06/25/2012 ROEL MORTICIAN INVESTIGATOR, GODWIN 789.00 abdominal pain 06/25/2012 MADL MORTICIAN INVESTIGATOR, FLO L 724.5 Backache Unspecified 06/25/2012 MADL MORTICIAN INVESTIGATOR, FLO L 789.00 abdominal pain 06/25/2012 MADL MORTICIAN INVESTIGATOR, FLO L 724.5 Backache Unspecified 06/25/2012 MADL MORTICIAN INVESTIGATOR, FLO L 789.00 abdominal pain 06/25/2012 ROEL MORTICIAN INVESTIGATOR, GODWIN 724.5 Backache Unspecified 06/25/2012 ROEL MORTICIAN INVESTIGATOR, GODWIN 789.00 abdominal pain 06/25/2012 SONNY MORTICIAN INVESTIGATOR, ELIAS A 724.5 Backache Unspecified 06/25/2012 SONNY MORTICIAN INVESTIGATOR, ELIAS A 789.00 abdominal pain 06/25/2012 [facility], DEMOND R 724.5 Backache Unspecified 06/25/2012 [facility], DEMOND R 789.00 abdominal pain 06/25/2012 MADL MORTICIAN INVESTIGATOR, FLO L 724.5 Backache Unspecified 06/25/2012 MADL MORTICIAN INVESTIGATOR, FLO L 789.00 abdominal pain 06/25/2012 SILVERIO DDS, JOSE 724.5 Backache Unspecified 06/25/2012 SILVERIO DDS, JOSE 789.00 abdominal pain 06/25/2012 [facility], DEMOND R 724.5 Backache Unspecified 06/25/2012 [facility], DEMOND R 789.00 abdominal pain 06/25/2012 [facility], DEMOND R 724.5 Backache Unspecified 06/25/2012 [facility], DEMOND R 789.00 abdominal pain 06/25/2012 ROEL MORTICIAN INVESTIGATOR, GODWIN 724.5 Backache Unspecified 06/25/2012 ROEL MORTICIAN INVESTIGATOR, GODWIN 789.00 abdominal pain 06/25/2012 MANUEL DOMARALA K 724.5 Backache Unspecified 06/25/2012 MANUEL DO, NICOLA K 789.00 abdominal pain 06/25/2012 ROEL MORTICIAN INVESTIGATOR, GODWIN 724.5 Backache Unspecified 06/25/2012 ROEL MORTICIAN INVESTIGATOR, GODWIN 789.00 abdominal pain 06/25/2012 ROEL MORTICIAN INVESTIGATOR, GODWIN 724.5 Backache Unspecified 06/25/2012 ROEL MORTICIAN INVESTIGATOR, GODWIN 789.00 abdominal pain 06/27/2012 EVITA JONES, [...] KELY J 786.50 Chest Pain 06/27/2012 BRIANTON MORTICIAN INVESTIGATORJASON Kirkpatrick D 785.1 Palpitations 06/27/2012 JASON HUNTER APRN D 786.05 Shortness Of Breath 06/27/2012 BRIANTON MORTICIAN INVESTIGATORASHLEY KirkpatrickJASON D 786.50 Chest Pain 06/27/2012 BRIANTON MORTICIAN INVESTIGATORASHLEY KirkpatrickJASON D 785.1 Palpitations 06/27/2012 DALE JASON MENG D 786.05 Shortness Of Breath 06/27/2012 BRIANTON MORTICIAN INVESTIGATORASHLEY KirkpatrickJASON D 786.50 Chest Pain 06/27/2012 DALE MORTICIAN INVESTIGATORJASON Kirkpatrick D 785.1 Palpitations 06/27/2012 BRIANJASON RENTERIA APRN D 786.05 Shortness Of Breath 06/27/2012 BRIANJASON RENTERIA APRN D 786.50 Chest Pain 06/27/2012 WOLF JAMA MD 785.1 Palpitations 06/27/2012 WOLF JAMA MD 786.05 Shortness Of Breath 06/27/2012 WOLF JAMA MD 786.50 Chest Pain 06/27/2012 ROEL MORTICIAN INVESTIGATOR, GODWIN 785.1 Palpitations 06/27/2012 ROEL MORTICIAN INVESTIGATOR, GODWIN 786.05 Shortness Of Breath 06/27/2012 ROEL MORTICIAN INVESTIGATOR, GODWIN 786.50 Chest Pain 06/27/2012 MADL MORTICIAN INVESTIGATOR, FLO L 785.1 Palpitations 06/27/2012 MADL MORTICIAN INVESTIGATOR, FLO L 786.05 Shortness Of Breath 06/27/2012 MADL MORTICIAN INVESTIGATOR, FLO L 786.50 Chest Pain 06/27/2012 ROEL MORTICIAN INVESTIGATOR, GODWIN 785.1 Palpitations 06/27/2012 ROEL MORTICIAN INVESTIGATOR, GODWIN 786.05 Shortness Of Breath 06/27/2012 ROEL MORTICIAN INVESTIGATOR, GODWIN 786.50 Chest Pain 06/27/2012 MADL MORTICIAN INVESTIGATOR, FLO L 785.1 Palpitations 06/27/2012 MADL MORTICIAN INVESTIGATOR, FLO L 786.05 Shortness Of Breath 06/27/2012 MADL MORTICIAN INVESTIGATOR, FLO L 786.50 Chest Pain 06/27/2012 ROEL MORTICIAN INVESTIGATOR, GODWIN 785.1 Palpitations 06/27/2012 ROEL MORTICIAN INVESTIGATOR, GODWIN 786.05 Shortness Of Breath 06/27/2012 ROEL MORTICIAN INVESTIGATOR, GODWIN 786.50 Chest Pain 06/27/2012 ROEL MORTICIAN INVESTIGATOR, GODWIN 785.1 Palpitations 06/27/2012 ROEL MORTICIAN INVESTIGATOR, GODWIN 786.05 Shortness Of Breath 06/27/2012 ROEL MORTICIAN INVESTIGATOR, GODWIN 786.50 Chest Pain 06/27/2012 MADL MORTICIAN INVESTIGATOR, FLO L 785.1 Palpitations 06/27/2012 MADL MORTICIAN INVESTIGATOR, FLO L 786.05 Shortness Of Breath 06/27/2012 MADL MORTICIAN INVESTIGATOR, FLO L 786.50 Chest Pain 06/27/2012 MADL MORTICIAN INVESTIGATOR, FLO L 785.1 Palpitations 06/27/2012 MADL MORTICIAN INVESTIGATOR, FLO L 786.05 Shortness Of Breath 06/27/2012 MADL MORTICIAN INVESTIGATOR, FLO L 786.50 Chest Pain 06/27/2012 ROEL MORTICIAN INVESTIGATOR, GODWIN 785.1 Palpitations 06/27/2012 ROEL MORTICIAN INVESTIGATOR, GODWIN 786.05 Shortness Of Breath 06/27/2012 ROEL MORTICIAN INVESTIGATOR, GODWIN 786.50 Chest Pain 06/27/2012 SONNY MORTICIAN INVESTIGATOR, ELIAS A 785.1 Palpitations 06/27/2012 SONNY MORTICIAN INVESTIGATOR, ELIAS A 786.05 Shortness Of Breath 06/27/2012 SONNY MORTICIAN INVESTIGATOR, ELIAS A 786.50 Chest Pain 06/27/2012 [facility], DEMOND R 785.1 Palpitations 06/27/2012 [facility], DEMOND R 786.05 Shortness Of Breath 06/27/2012 [facility], DEMOND R 786.50 Chest Pain 06/27/2012 MADL MORTICIAN INVESTIGATOR, FLO L 785.1 Palpitations 06/27/2012 MADL MORTICIAN INVESTIGATOR, FLO L 786.05 Shortness Of Breath 06/27/2012 MADL MORTICIAN INVESTIGATOR, FLO L 786.50 Chest Pain 06/27/2012 SILVERIO [...] DEMOND R 786.50 Chest Pain 06/27/2012 ROEL MORTICIAN INVESTIGATOR, GODWIN 785.1 Palpitations 06/27/2012 ROEL MORTICIAN INVESTIGATOR, GODWIN 786.05 Shortness Of Breath 06/27/2012 ROEL MORTICIAN INVESTIGATOR, GODWIN 786.50 Chest Pain 06/27/2012 MANUEL DO, NICOLA K 785.1 Palpitations 06/27/2012 MANUEL DO, NICOLA K 786.05 Shortness Of Breath 06/27/2012 MANUEL DO, NICOLA K 786.50 Chest Pain 06/27/2012 ROEL MORTICIAN INVESTIGATOR, GODWIN 785.1 Palpitations 06/27/2012 ROEL MORTICIAN INVESTIGATOR, GODWIN 786.05 Shortness Of Breath 06/27/2012 ROEL MORTICIAN INVESTIGATOR, GODWIN 786.50 Chest Pain 06/27/2012 ROEL MORTICIAN INVESTIGATOR, GODWIN 785.1 Palpitations 06/27/2012 ROEL MORTICIAN INVESTIGATOR, GODWIN 786.05 Shortness Of Breath 06/27/2012 ROEL MORTICIAN INVESTIGATOR, GODWIN 786.50 Chest Pain 08/07/2012 WOLF JAMA [...] HUNTER APRN 625.9 Pelvic Pain 08/07/2012 JASON HUNETR APRN V05.3 Hep B (adult) Dx 08/07/2012 [...] Cervical Cancer Screening (pap Smear) 08/07/2012 ROEL MORTICIAN INVESTIGATOR, GODWIN 617.9 ENDOMETRIOSIS SITE UNSPECIFIED 08/07/2012 ROEL MORTICIAN INVESTIGATOR, GODWIN 625.9 Pelvic Pain 08/07/2012 ROEL MORTICIAN INVESTIGATOR, GODWIN V05.3 Hep B (adult) Dx 08/07/2012 ROEL MORTICIAN INVESTIGATOR, GODWIN V76.2 Cervical Cancer Screening (pap Smear) 08/07/2012 MADL MORTICIAN INVESTIGATOR, FLO L 617.9 ENDOMETRIOSIS SITE UNSPECIFIED 08/07/2012 MADL MORTICIAN INVESTIGATOR, FLO L 625.9 Pelvic Pain 08/07/2012 MADL MORTICIAN INVESTIGATOR, FLO L V05.3 Hep B (adult) Dx 08/07/2012 MADL MORTICIAN INVESTIGATOR, FLO L V76.2 Cervical Cancer Screening (pap Smear) 08/07/2012 ROEL MORTICIAN INVESTIGATOR, GODWIN 617.9 ENDOMETRIOSIS SITE UNSPECIFIED 08/07/2012 ROEL MORTICIAN INVESTIGATOR, GODWIN 625.9 Pelvic Pain 08/07/2012 ROEL MORTICIAN INVESTIGATOR, GODWIN V05.3 Hep B (adult) Dx 08/07/2012 ROEL MORTICIAN INVESTIGATOR, GODWIN V76.2 Cervical Cancer Screening (pap Smear) 08/07/2012 MADL MORTICIAN INVESTIGATOR, FLO L 617.9 ENDOMETRIOSIS SITE UNSPECIFIED 08/07/2012 MADL MORTICIAN INVESTIGATOR, FLO L 625.9 Pelvic Pain 08/07/2012 MADL MORTICIAN INVESTIGATOR, FLO L V05.3 Hep B (adult) Dx 08/07/2012 MADL MORTICIAN INVESTIGATOR, FLO L V76.2 Cervical Cancer Screening (pap Smear) 08/07/2012 ROEL MORTICIAN INVESTIGATOR, GODWIN 617.9 ENDOMETRIOSIS SITE UNSPECIFIED 08/07/2012 ROEL MORTICIAN INVESTIGATOR, GODWIN 625.9 Pelvic Pain 08/07/2012 ROEL MORTICIAN INVESTIGATOR, GODWIN V05.3 Hep B (adult) Dx 08/07/2012 ROEL MORTICIAN INVESTIGATOR, GODWIN V76.2 Cervical Cancer Screening (pap Smear) 08/07/2012 ROEL MORTICIAN INVESTIGATOR, GODWIN 617.9 ENDOMETRIOSIS SITE UNSPECIFIED 08/07/2012 ROEL MORTICIAN INVESTIGATOR, GODWIN 625.9 Pelvic Pain 08/07/2012 ROEL MORTICIAN INVESTIGATOR, GODWIN V05.3 Hep B (adult) Dx 08/07/2012 ROEL MORTICIAN INVESTIGATOR, GODWIN V76.2 Cervical Cancer Screening (pap Smear) 08/07/2012 MADL MORTICIAN INVESTIGATOR, FLO L 617.9 ENDOMETRIOSIS SITE UNSPECIFIED 08/07/2012 MADL MORTICIAN INVESTIGATOR, FLO L 625.9 Pelvic Pain 08/07/2012 MADL MORTICIAN INVESTIGATOR, FLO L V05.3 Hep B (adult) Dx 08/07/2012 MADL MORTICIAN INVESTIGATOR, FLO L V76.2 Cervical Cancer Screening (pap Smear) 08/07/2012 MADL MORTICIAN INVESTIGATOR, FLO L 617.9 ENDOMETRIOSIS SITE UNSPECIFIED 08/07/2012 MADL MORTICIAN INVESTIGATOR, FLO L 625.9 Pelvic Pain 08/07/2012 MADL MORTICIAN INVESTIGATOR, FLO L V05.3 Hep B (adult) Dx 08/07/2012 MADL MORTICIAN INVESTIGATOR, FLO L V76.2 Cervical Cancer Screening (pap Smear) 08/07/2012 ROEL MORTICIAN INVESTIGATOR, GODWIN 617.9 ENDOMETRIOSIS SITE UNSPECIFIED 08/07/2012 ROEL MORTICIAN INVESTIGATOR, GODWIN 625.9 Pelvic Pain 08/07/2012 ROEL MORTICIAN INVESTIGATOR, GODWIN V05.3 Hep B (adult) Dx 08/07/2012 ROEL MORTICIAN INVESTIGATOR, GODWIN V76.2 Cervical Cancer Screening (pap Smear) 08/07/2012 SONNY MENG, ELIAS A 617.9 ENDOMETRIOSIS SITE UNSPECIFIED 08/07/2012 SONNY MORTICIAN INVESTIGATOR, ELIAS A 625.9 Pelvic Pain 08/07/2012 SONNY MORTICIAN INVESTIGATOR, ELIAS A V05.3 Hep B (adult) Dx 08/07/2012 SONNY MORTICIAN INVESTIGATOR, ELIAS A V76.2 Cervical Cancer Screening (pap Smear) 08/07/2012 [facility], DEMOND R 617.9 ENDOMETRIOSIS SITE UNSPECIFIED 08/07/2012 [facility], DEMOND Fernando 625.9 Pelvic Pain 08/07/2012 [facility], DEMOND Fernando V05.3 Hep B (adult) Dx 08/07/2012 [facility], DEMOND R V76.2 Cervical Cancer Screening (pap Smear) 08/07/2012 MADL MORTICIAN INVESTIGATOR, FLO L 617.9 ENDOMETRIOSIS SITE UNSPECIFIED 08/07/2012 MADL MORTICIAN INVESTIGATOR, FLO L 625.9 Pelvic Pain 08/07/2012 MADL MORTICIAN INVESTIGATOR, FLO L V05.3 Hep B (adult) Dx 08/07/2012 MADL MORTICIAN INVESTIGATOR, FLO L V76.2 Cervical Cancer Screening (pap Smear) 08/07/2012 SILVERIO DDSJOSE 617.9 ENDOMETRIOSIS SITE UNSPECIFIED 08/07/2012 SILVERIO DDS, JOSE 625.9 Pelvic Pain 08/07/2012 SILVERIO DDS, JOSE V05.3 Hep B (adult) Dx 08/07/2012 SILVERIO DDS, JOSE V76.2 Cervical Cancer Screening (pap Smear) 08/07/2012 [facility], DEMOND R 617.9 ENDOMETRIOSIS SITE UNSPECIFIED 08/07/2012 [facility], DEMOND R 625.9 Pelvic Pain 08/07/2012 [facility], DEMOND R V05.3 Hep B (adult) Dx 08/07/2012 [facility], DEMOND R V76.2 Cervical Cancer Screening (pap Smear) 08/07/2012 [facility], DEMOND R 617.9 ENDOMETRIOSIS SITE UNSPECIFIED 08/07/2012 [facility], DEMOND R 625.9 Pelvic Pain 08/07/2012 [facility], DEMOND R V05.3 Hep B (adult) Dx 08/07/2012 [facility], DEMOND R V76.2 Cervical Cancer Screening (pap Smear) 08/07/2012 ROEL MORTICIAN INVESTIGATOR, GODWIN 617.9 ENDOMETRIOSIS SITE UNSPECIFIED 08/07/2012 ROEL MORTICIAN INVESTIGATOR, GODWIN 625.9 Pelvic Pain 08/07/2012 ROEL MORTICIAN INVESTIGATOR, GODWIN V05.3 Hep B (adult) Dx 08/07/2012 ROEL MORTICIAN INVESTIGATOR, GODWIN V76.2 Cervical Cancer Screening (pap Smear) 08/07/2012 MANUEL DO NICOLA K 617.9 ENDOMETRIOSIS SITE UNSPECIFIED 08/07/2012 MANUEL DO, NICOLA K 625.9 Pelvic Pain 08/07/2012 MANUEL DO, NICOLA K V05.3 Hep B (adult) Dx 08/07/2012 NICOLA MANUEL DO V76.2 Cervical Cancer Screening (pap Smear) 08/07/2012 ROEL MORTICIAN INVESTIGATOR, GODWIN 617.9 ENDOMETRIOSIS SITE UNSPECIFIED 08/07/2012 ROEL MORTICIAN INVESTIGATOR, GODWIN 625.9 Pelvic Pain 08/07/2012 ROEL MORTICIAN INVESTIGATOR, GODWIN V05.3 Hep B (adult) Dx 08/07/2012 ROEL MORTICIAN INVESTIGATOR, GODWIN V76.2 Cervical Cancer Screening (pap Smear) 08/07/2012 ROEL MORTICIAN INVESTIGATOR, GODWIN 617.9 ENDOMETRIOSIS SITE UNSPECIFIED 08/07/2012 ROEL MORTICIAN INVESTIGATOR, GODWIN 625.9 Pelvic Pain 08/07/2012 ROEL MORTICIAN INVESTIGATOR, GODWIN V05.3 Hep B (adult) Dx 08/07/2012 ROEL MORTICIAN INVESTIGATOR, GODWIN V76.2 Cervical Cancer Screening (pap Smear) [...] UNSPECIFIED NONINFECTIOUS GASTROENTERITIS AND COLITIS 09/28/2012 ROEL MORTICIAN INVESTIGATOR, GODWIN 558.9 OTHER AND UNSPECIFIED NONINFECTIOUS GASTROENTERITIS AND COLITIS 09/28/2012 ROSITA GONZALEZ APRNA L 558.9 OTHER AND UNSPECIFIED NONINFECTIOUS GASTROENTERITIS AND COLITIS 09/28/2012 ROEL MORTICIAN INVESTIGATOR GODWIN 558.9 OTHER AND UNSPECIFIED NONINFECTIOUS GASTROENTERITIS AND COLITIS 09/28/2012 ROEL MORTICIAN INVESTIGATOR, GODWIN 558.9 OTHER AND UNSPECIFIED NONINFECTIOUS GASTROENTERITIS AND COLITIS 09/28/2012 ROSITA GONZALEZ APRNA L 558.9 OTHER AND UNSPECIFIED NONINFECTIOUS GASTROENTERITIS AND COLITIS 09/28/2012 MADL TAQUERIA FLO L 558.9 OTHER AND UNSPECIFIED NONINFECTIOUS GASTROENTERITIS AND COLITIS 09/28/2012 ROEL MORTICIAN INVESTIGATOR, GODWIN 558.9 OTHER AND UNSPECIFIED NONINFECTIOUS GASTROENTERITIS AND COLITIS 09/28/2012 SONNY MENG, ELIAS A 558.9 OTHER AND UNSPECIFIED NONINFECTIOUS GASTROENTERITIS AND COLITIS 09/28/2012 [facility], DEMOND R 558.9 OTHER AND UNSPECIFIED NONINFECTIOUS GASTROENTERITIS AND COLITIS 09/28/2012 LISA MENG FLO L 558.9 OTHER AND UNSPECIFIED NONINFECTIOUS GASTROENTERITIS AND COLITIS 09/28/2012 JOSE SILVERIO DDS 558.9 OTHER AND UNSPECIFIED NONINFECTIOUS GASTROENTERITIS AND COLITIS 09/28/2012 [facility], DEMOND R 558.9 OTHER AND UNSPECIFIED NONINFECTIOUS GASTROENTERITIS AND COLITIS 09/28/2012 [facility], DEMOND R 558.9 OTHER AND UNSPECIFIED NONINFECTIOUS GASTROENTERITIS AND COLITIS 09/28/2012 ROELSAM MENG GODWIN 558.9 OTHER AND UNSPECIFIED NONINFECTIOUS GASTROENTERITIS AND COLITIS 09/28/2012 NICOLA MANUEL DO 558.9 OTHER AND UNSPECIFIED NONINFECTIOUS GASTROENTERITIS AND COLITIS 09/28/2012 ROEL MORTICIAN INVESTIGATOR, GODWIN 558.9 OTHER AND UNSPECIFIED NONINFECTIOUS GASTROENTERITIS AND COLITIS 09/28/2012 ROEL MORTICIAN INVESTIGATOR, GODWIN 558.9 OTHER AND UNSPECIFIED NONINFECTIOUS GASTROENTERITIS [...] DDS, KELY Dickens 626.0 AMENORRHEA 11/29/2012 DALE MORTICIAN INVESTIGATORJASON Kirkpatrick 626.0 AMENORRHEA 11/29/2012 DALE MORTICIAN INVESTIGATOR, JASON Steel 626.0 AMENORRHEA 11/29/2012 DALE MENG, JASON Steel 626.0 AMENORRHEA 11/29/2012 WOLF JAMA MD 626.0 AMENORRHEA 11/29/2012 ROEL MORTICIAN INVESTIGATOR, GODWIN 626.0 AMENORRHEA 11/29/2012 MADL MORTICIAN INVESTIGATOR, FLO L 626.0 AMENORRHEA 11/29/2012 ROEL MORTICIAN INVESTIGATOR, GODWIN 626.0 AMENORRHEA 11/29/2012 MADL MORTICIAN INVESTIGATOR, FLO L 626.0 AMENORRHEA 11/29/2012 ROEL MORTICIAN INVESTIGATOR, GODWIN 626.0 AMENORRHEA 11/29/2012 ROEL MORTICIAN INVESTIGATOR, GODWIN 626.0 AMENORRHEA 11/29/2012 MADL MORTICIAN INVESTIGATOR, FLO L 626.0 AMENORRHEA 11/29/2012 MADL MORTICIAN INVESTIGATOR, FLO L 626.0 AMENORRHEA 11/29/2012 ROEL MORTICIAN INVESTIGATOR, GODWIN 626.0 AMENORRHEA 11/29/2012 ELIAS DENNIS APRN A 626.0 AMENORRHEA 11/29/2012 [facility] [facility] DEMOND R 626.0 AMENORRHEA 11/29/2012 MADL MORTICIAN INVESTIGATOR, FLO L 626.0 AMENORRHEA 11/29/2012 JOSE SILVERIO DDS 626.0 AMENORRHEA 11/29/2012 [facility], DEMOND R 626.0 AMENORRHEA 11/29/2012 [facility], DEMOND R 626.0 AMENORRHEA 11/29/2012 ROEL MORTICIAN INVESTIGATOR, GODWIN 626.0 AMENORRHEA 11/29/2012 NICLOA MANUEL DO K 626.0 AMENORRHEA 11/29/2012 ROEL MORTICIAN INVESTIGATOR, GODWIN 626.0 AMENORRHEA 11/29/2012 ROEL MORTICIAN INVESTIGATOR, GODWIN 626.0 AMENORRHEA 12/08/2012 Ot 723.1 CERVICALGIA [...] HUNTER APRN V73.81 HPV SCREENING 01/16/2013 JASON UHNTER APRN V74.5 STD SCREEN 01/16/2013 JASON HUNTER [...] GODWIN SEVILLA APRN 626.1 OLIGOMENORRHEA 01/16/2013 ROEL MORTICIAN INVESTIGATOR, GODWIN V73.81 HPV SCREENING 01/16/2013 ROEL MORTICIAN INVESTIGATOR, GODWIN V74.5 STD SCREEN 01/16/2013 ROEL MORTICIAN INVESTIGATOR, GODWIN V76.2 CERVICAL CANCER SCREENING (PAP SMEAR) 01/16/2013 MAD MORTICIAN INVESTIGATOR, FLO L 305.1 TOBACCO ABUSE 01/16/2013 MADL MORTICIAN INVESTIGATOR, FLO L 626.1 OLIGOMENORRHEA 01/16/2013 MAD MORTICIAN INVESTIGATOR, FLO L V73.81 HPV SCREENING 01/16/2013 MAD MORTICIAN INVESTIGATOR, FLO L V74.5 STD SCREEN 01/16/2013 MAD MORTICIAN INVESTIGATOR, FLO L V76.2 CERVICAL CANCER SCREENING (PAP SMEAR) 01/16/2013 ROEL MORTICIAN INVESTIGATOR, GODWIN 305.1 TOBACCO ABUSE 01/16/2013 ROEL MORTICIAN INVESTIGATOR, GODWIN 626.1 OLIGOMENORRHEA 01/16/2013 ROEL MORTICIAN INVESTIGATOR, GODWIN V73.81 HPV SCREENING 01/16/2013 ROEL MORTICIAN INVESTIGATOR, GODWIN V74.5 STD SCREEN 01/16/2013 ROEL MORTICIAN INVESTIGATOR, GODWIN V76.2 CERVICAL CANCER SCREENING (PAP SMEAR) 01/16/2013 ROEL MORTICIAN INVESTIGATOR, GODWIN 305.1 TOBACCO ABUSE 01/16/2013 ROEL MORTICIAN INVESTIGATOR, GODWIN 626.1 OLIGOMENORRHEA 01/16/2013 ROEL MORTICIAN INVESTIGATOR, GODWIN V73.81 HPV SCREENING 01/16/2013 ROEL MORTICIAN INVESTIGATOR, GODWIN V74.5 STD SCREEN 01/16/2013 ROEL MORTICIAN INVESTIGATOR, GODWIN V76.2 CERVICAL CANCER SCREENING (PAP SMEAR) 01/16/2013 MAD MORTICIAN INVESTIGATOR, FLO L 305.1 TOBACCO ABUSE 01/16/2013 MAD MORTICIAN INVESTIGATOR, FLO L 626.1 OLIGOMENORRHEA 01/16/2013 MAD MORTICIAN INVESTIGATOR, FLO L V73.81 HPV SCREENING 01/16/2013 MAD MORTICIAN INVESTIGATOR, FLO L V74.5 STD SCREEN 01/16/2013 MADL MORTICIAN INVESTIGATOR, FLO L V76.2 CERVICAL CANCER SCREENING (PAP SMEAR) 01/16/2013 MADL MORTICIAN INVESTIGATOR, FLO L 305.1 TOBACCO ABUSE 01/16/2013 MADL MORTICIAN INVESTIGATOR, FLO L 626.1 OLIGOMENORRHEA 01/16/2013 MADL MORTICIAN INVESTIGATOR, FLO L V73.81 HPV SCREENING 01/16/2013 MADL MORTICIAN INVESTIGATOR, FLO L V74.5 STD SCREEN 01/16/2013 MADL MORTICIAN INVESTIGATOR, FLO L V76.2 CERVICAL CANCER SCREENING (PAP SMEAR) 01/16/2013 MICHAEL SEVILLA APRNETTE 305.1 TOBACCO ABUSE 01/16/2013 ROEL MORTICIAN INVESTIGATOR, GODWIN 626.1 OLIGOMENORRHEA 01/16/2013 ROEL MORTICIAN INVESTIGATOR, GODWIN V73.81 HPV SCREENING 01/16/2013 ROEL MORTICIAN INVESTIGATOR, GODWIN V74.5 STD SCREEN 01/16/2013 ROEL MORTICIAN INVESTIGATOR, GODWIN V76.2 CERVICAL CANCER SCREENING (PAP SMEAR) 01/16/2013 SONNY APRN, ELIAS A 305.1 TOBACCO ABUSE 01/16/2013 SONNY MORTICIAN INVESTIGATOR, ELIAS A 626.1 OLIGOMENORRHEA 01/16/2013 SONNY MORTICIAN INVESTIGATOR, ELIAS A V73.81 HPV SCREENING 01/16/2013 SONNY MORTICIAN INVESTIGATOR, ELIAS A V74.5 STD SCREEN 01/16/2013 SONNY MORTICIAN INVESTIGATOR, ELIAS A V76.2 CERVICAL CANCER SCREENING (PAP SMEAR) 01/16/2013 [facility], DEMOND R 305.1 TOBACCO ABUSE 01/16/2013 [facility], DEMOND R 626.1 OLIGOMENORRHEA 01/16/2013 [facility], DEMOND R V73.81 HPV SCREENING 01/16/2013 [facility], DEMOND R V74.5 STD SCREEN 01/16/2013 [facility], DEMOND R V76.2 CERVICAL CANCER SCREENING (PAP SMEAR) 01/16/2013 MAD MORTICIAN INVESTIGATOR, FLO L 305.1 TOBACCO ABUSE 01/16/2013 MADL MORTICIAN INVESTIGATOR, FLO L 626.1 OLIGOMENORRHEA 01/16/2013 MADL MORTICIAN INVESTIGATOR, FLO L V73.81 HPV SCREENING 01/16/2013 MADL MORTICIAN INVESTIGATOR, FLO L V74.5 STD SCREEN 01/16/2013 MADL MORTICIAN INVESTIGATOR, FLO L V76.2 CERVICAL CANCER SCREENING (PAP SMEAR) 01/16/2013 JOSE SILVERIO DDS 305.1 TOBACCO ABUSE 01/16/2013 SILVERIO DDS, JOSE 626.1 OLIGOMENORRHEA 01/16/2013 SILVERIO DDS, JOSE V73.81 HPV SCREENING 01/16/2013 SILVERIO DDS, JOSE V74.5 STD SCREEN 01/16/2013 SILVERIO DDS, JOSE V76.2 CERVICAL CANCER SCREENING (PAP SMEAR) 01/16/2013 [facility], DEMOND R 305.1 TOBACCO ABUSE 01/16/2013 [facility], DEMOND R 626.1 OLIGOMENORRHEA 01/16/2013 [facility], DEMOND R V73.81 HPV SCREENING 01/16/2013 [facility], DEMOND R V74.5 STD SCREEN 01/16/2013 [facility], DEMOND R V76.2 CERVICAL CANCER SCREENING (PAP SMEAR) 01/16/2013 [facility], DEMOND R 305.1 TOBACCO ABUSE 01/16/2013 [facility], DEMOND R 626.1 OLIGOMENORRHEA 01/16/2013 [facility], DEMOND R V73.81 HPV SCREENING 01/16/2013 [facility], DEMOND R V74.5 STD SCREEN 01/16/2013 [facility], DEMOND R V76.2 CERVICAL CANCER SCREENING (PAP SMEAR) 01/16/2013 ROEL MENG GODWIN 305.1 TOBACCO ABUSE 01/16/2013 ROEL MORTICIAN INVESTIGATOR, GODWIN 626.1 OLIGOMENORRHEA 01/16/2013 ROEL MORTICIAN INVESTIGATOR, GODWIN V73.81 HPV SCREENING 01/16/2013 ROEL MORTICIAN INVESTIGATOR, GODWIN V74.5 STD SCREEN 01/16/2013 ROEL MORTICIAN INVESTIGATOR, GODWIN V76.2 CERVICAL CANCER SCREENING (PAP SMEAR) 01/16/2013 MANUEL DO NICOLA K 305.1 TOBACCO ABUSE 01/16/2013 MANUEL DO NICOLA K 626.1 OLIGOMENORRHEA 01/16/2013 MANUEL DO NICOLA K V73.81 HPV SCREENING 01/16/2013 MANUEL DO NICOLA K V74.5 STD SCREEN 01/16/2013 MANUEL DO NICOLA K V76.2 CERVICAL CANCER SCREENING (PAP SMEAR) 01/16/2013 ROEL MORTICIAN INVESTIGATOR, GODWIN 305.1 TOBACCO ABUSE 01/16/2013 ROEL MORTICIAN INVESTIGATOR, GODWIN 626.1 OLIGOMENORRHEA 01/16/2013 ROEL MORTICIAN INVESTIGATOR, GODWIN V73.81 HPV SCREENING 01/16/2013 ROEL MORTICIAN INVESTIGATOR, GODWIN V74.5 STD SCREEN 01/16/2013 ROEL MORTICIAN INVESTIGATOR, GODWIN V76.2 CERVICAL CANCER SCREENING (PAP SMEAR) 01/16/2013 ROEL MORTICIAN INVESTIGATOR, GODWIN 305.1 TOBACCO ABUSE 01/16/2013 ROEL MORTICIAN INVESTIGATOR, GODWIN 626.1 OLIGOMENORRHEA 01/16/2013 ROEL MORTICIAN INVESTIGATOR, GODWIN V73.81 HPV SCREENING 01/16/2013 ROEL MORTICIAN INVESTIGATOR, GODWIN V74.5 STD SCREEN 01/16/2013 ROEL MORTICIAN INVESTIGATOR, GODWIN V76.2 CERVICAL CANCER SCREENING (PAP SMEAR) [...] APRN 296.90 MOOD DISORDER NOS 01/24/2013 WOLF JAAM MD 296.90 MOOD DISORDER NOS 01/24/2013 NICOLA MANUEL DO 296.90 MOOD DISORDER NOS 01/24/2013 KEYL FRIEDMAN DDS 296.90 MOOD DISORDER NOS 01/24/2013 JASON HUNTER APRN 296.90 MOOD DISORDER NOS 01/24/2013 JASON HUNTER APRN 296.90 MOOD DISORDER NOS 01/24/2013 JASON HUNTER APRN 296.90 MOOD DISORDER NOS 01/24/2013 WOLF JAMA MD 296.90 MOOD DISORDER NOS 01/24/2013 GODWIN SEVILLA APRN 296.90 MOOD DISORDER NOS 01/24/2013 MADL MORTICIAN INVESTIGATOR, FLO L 296.90 MOOD DISORDER NOS 01/24/2013 ROEL MORTICIAN INVESTIGATOR, GODWIN 296.90 MOOD DISORDER NOS 01/24/2013 MADL MORTICIAN INVESTIGATOR, FLO L 296.90 MOOD DISORDER NOS 01/24/2013 ROEL MORTICIAN INVESTIGATOR, GODWIN 296.90 MOOD DISORDER NOS 01/24/2013 ROEL MORTICIAN INVESTIGATOR, GODWIN 296.90 MOOD DISORDER NOS 01/24/2013 MADL MORTICIAN INVESTIGATOR, FLO L 296.90 MOOD DISORDER NOS 01/24/2013 MADL MORTICIAN INVESTIGATOR, FLO L 296.90 MOOD DISORDER NOS 01/24/2013 ROEL MORTICIAN INVESTIGATOR, GODWIN 296.90 MOOD DISORDER NOS 01/24/2013 SONNY MORTICIAN INVESTIGATOR, ELIAS A 296.90 MOOD DISORDER NOS 01/24/2013 [facility], DEMOND R 296.90 MOOD DISORDER NOS 01/24/2013 MADL MORTICIAN INVESTIGATOR, FLO L 296.90 MOOD DISORDER NOS 01/24/2013 NUSRAT JENKINSS, JOSE 296.90 MOOD DISORDER NOS 01/24/2013 [facility], DEMOND R 296.90 MOOD DISORDER NOS 01/24/2013 [facility], DEMOND R 296.90 MOOD DISORDER NOS 01/24/2013 ROEL MORTICIAN INVESTIGATOR, GODWIN 296.90 MOOD DISORDER NOS 01/24/2013 NICOLA MANUEL DO 296.90 MOOD DISORDER NOS 01/24/2013 ROEL MORTICIAN INVESTIGATOR, GODWIN 296.90 MOOD DISORDER NOS 01/24/2013 ROEL MORTICIAN INVESTIGATOR, GDOWIN 296.90 MOOD DISORDER NOS 02/13/2013 787.02 NAUSEA [...] JAMA MD 787.02 NAUSEA ALONE 02/13/2013 ROEL MORTICIAN INVESTIGATOR, GODWIN 787.02 NAUSEA ALONE 02/13/2013 MADROSITA Alfred APRNA L 787.02 NAUSEA ALONE 02/13/2013 ROEL MORTICIAN INVESTIGATOR, GODWIN 787.02 NAUSEA ALONE 02/13/2013 LISA MENG FLO L 787.02 NAUSEA ALONE 02/13/2013 ROEL TAQUERIA GODWIN 787.02 NAUSEA ALONE 02/13/2013 ROEL MORTICIAN INVESTIGATOR, GODWIN 787.02 NAUSEA ALONE 02/13/2013 MADTima MENG FLO L 787.02 NAUSEA ALONE 02/13/2013 MADL TAQUERIA FLO L 787.02 NAUSEA ALONE 02/13/2013 ROEL MORTICIAN INVESTIGATOR, GODWIN 787.02 NAUSEA ALONE 02/13/2013 ELIAS DENNIS APRN 787.02 NAUSEA ALONE 02/13/2013 [facility], DEMOND R 787.02 NAUSEA ALONE 02/13/2013 MADROSITA Alfred APRNA L 787.02 NAUSEA ALONE 02/13/2013 JOSE SILVERIO DDS 787.02 NAUSEA ALONE 02/13/2013 [facility], DEMOND R 787.02 NAUSEA ALONE 02/13/2013 [facility], DEMOND R 787.02 NAUSEA ALONE 02/13/2013 ROEL MORTICIAN INVESTIGATOR, GODWIN 787.02 NAUSEA ALONE 02/13/2013 NICOLA MANUEL DO 787.02 NAUSEA ALONE 02/13/2013 ROEL MORTICIAN INVESTIGATOR, GODWIN 787.02 NAUSEA ALONE 02/13/2013 ROEL MORTICIAN INVESTIGATOR, GODWIN 787.02 NAUSEA ALONE 03/23/2013 309.81 AN [...] JAMA MD 309.81 AN PTSD 03/23/2013 ROEL MORTICIAN INVESTIGATOR, GODWIN 309.81 AN PTSD 03/23/2013 MADL MORTICIAN INVESTIGATOR, FLO L 309.81 AN PTSD 03/23/2013 ROEL MORTICIAN INVESTIGATOR, GODWIN 309.81 AN PTSD 03/23/2013 MADL MORTICIAN INVESTIGATOR, FLO L 309.81 AN PTSD 03/23/2013 ROEL MORTICIAN INVESTIGATOR, GODWIN 309.81 AN PTSD 03/23/2013 ROEL MORTICIAN INVESTIGATOR, GODWIN 309.81 AN PTSD 03/23/2013 MADL MORTICIAN INVESTIGATOR, FLO L 309.81 AN PTSD 03/23/2013 MADL MORTICIAN INVESTIGATOR, FLO L 309.81 AN PTSD 03/23/2013 ROEL MORTICIAN INVESTIGATOR, GODWIN 309.81 AN PTSD 03/23/2013 SONNY MORTICIAN INVESTIGATOR, ELIAS A 309.81 AN PTSD 03/23/2013 [facility], DEMOND R 309.81 AN PTSD 03/23/2013 MADL MORTICIAN INVESTIGATOR, FLO L 309.81 AN PTSD 03/23/2013 JOSE SILVERIO DDS 309.81 AN PTSD 03/23/2013 [facility], DEMOND R 309.81 AN PTSD 03/23/2013 [facility] 309.81 AN PTSD 03/23/2013 ROEL MORTICIAN INVESTIGATOR, GODWIN 309.81 AN PTSD 03/23/2013 NICOLA MANUEL [...] 724.2 LUMBAGO/ LOW BACK PAIN 04/26/2013 ROEL MORTICIAN INVESTIGATOR, GODWIN 724.2 LUMBAGO/ LOW BACK PAIN 04/26/2013 MADL MORTICIAN INVESTIGATOR, FLO L 724.2 LUMBAGO/ LOW BACK PAIN 04/26/2013 MADL MORTICIAN INVESTIGATOR, FLO L 724.2 LUMBAGO/ LOW BACK PAIN 04/26/2013 ROEL MORTICIAN INVESTIGATOR, GODWIN 724.2 LUMBAGO/ LOW BACK PAIN 04/26/2013 SONNY MORTICIAN INVESTIGATOR, ELIAS A 724.2 LUMBAGO/ LOW BACK PAIN 04/26/2013 [facility], DEMOND R 724.2 LUMBAGO/ LOW BACK PAIN 04/26/2013 MADL MORTICIAN INVESTIGATOR, FLO L 724.2 LUMBAGO/ LOW BACK PAIN 04/26/2013 NUSRAT JENKINSS, JOSE 724.2 LUMBAGO/ LOW BACK [facility] 04/26[facility]24[facility]2 [facility]UM[facility]AGO/ L[facility] 04/26[facility] 724.2 LUMBAGO/ LOW BACK PAIN 04/26/2013 ROEL MORTICIAN INVESTIGATOR, GODWIN 724.2 LUMBAGO/ LOW BACK PAIN 04/26/2013 MANUEL DONICOLA K 724.2 LUMBAGO/ LOW BACK PAIN 04/26/2013 ROEL MORTICIAN INVESTIGATOR, GODWIN 724.2 LUMBAGO/ LOW BACK PAIN 04/26/2013 ROEL MORTICIAN INVESTIGATOR, GODWIN 724.2 LUMBAGO/ LOW BACK PAIN 04/29/2013 [...] FLO L 799.81 DECREASED LIBIDO 04/29/2013 BRYANL MORTICIAN INVESTIGATOR, FLO L V26.9 PROCREATIVE MANAGEMENT 04/29/2013 ROEL MENG GODWIN 799.81 DECREASED LIBIDO 04/29/2013 ROEL MORTICIAN INVESTIGATOR, GODWIN V26.9 PROCREATIVE MANAGEMENT 04/29/2013 ROEL MORTICIAN INVESTIGATOR, GODWIN 799.81 DECREASED LIBIDO 04/29/2013 ROEL MORTICIAN INVESTIGATOR, GODWIN V26.9 PROCREATIVE MANAGEMENT 04/29/2013 MADL MORTICIAN INVESTIGATOR, FLO L 799.81 DECREASED LIBIDO 04/29/2013 MADL MORTICIAN INVESTIGATOR, FLO L V26.9 PROCREATIVE MANAGEMENT 04/29/2013 MADL MORTICIAN INVESTIGATOR, FLO L 799.81 DECREASED LIBIDO 04/29/2013 MADL MORTICIAN INVESTIGATOR, FLO L V26.9 PROCREATIVE MANAGEMENT 04/29/2013 ROEL MORTICIAN INVESTIGATOR, GODWIN 799.81 DECREASED LIBIDO 04/29/2013 ROEL MORTICIAN INVESTIGATOR, GODWIN V26.9 PROCREATIVE MANAGEMENT 04/29/2013 SONNY MORTICIAN INVESTIGATOR, ELIAS A 799.81 DECREASED LIBIDO 04/29/2013 SONNY MORTICIAN INVESTIGATOR, ELIAS A V26.9 PROCREATIVE MANAGEMENT 04/29/2013 [facility], DEMOND R 799.81 DECREASED LIBIDO 04/29/2013 [facility], DEMOND R V26.9 PROCREATIVE MANAGEMENT 04/29/2013 MADL MORTICIAN INVESTIGATOR, FLO L 799.81 DECREASED LIBIDO 04/29/2013 MADL MORTICIAN INVESTIGATOR, FLO L V26.9 PROCREATIVE MANAGEMENT 04/29/2013 SILVERIO DDS, JOSE 799.81 DECREASED LIBIDO 04/29/2013 SILVERIO DDS, JOSE V26.9 PROCREATIVE MANAGEMENT 04/29/2013 [facility], DEMOND R 799.81 DECREASED LIBIDO 04/29/2013 [facility], DEMOND R V26.9 PROCREATIVE MANAGEMENT 04/29/2013 [facility], DEMOND R 799.81 DECREASED LIBIDO 04/29/2013 [facility], DEMOND R V26.9 PROCREATIVE MANAGEMENT 04/29/2013 ROEL MORTICIAN INVESTIGATOR, GODWIN 799.81 DECREASED LIBIDO 04/29/2013 ROEL MORTICIAN INVESTIGATOR, GODWIN V26.9 PROCREATIVE MANAGEMENT 04/29/2013 MANUEL DO, NICOLA K 799.81 DECREASED LIBIDO 04/29/2013 MANUEL DO, NICOLA K V26.9 PROCREATIVE MANAGEMENT 04/29/2013 ROEL MORTICIAN INVESTIGATOR, GODWIN 799.81 DECREASED LIBIDO 04/29/2013 ROEL MORTICIAN INVESTIGATOR, GODWIN V26.9 PROCREATIVE MANAGEMENT 04/29/2013 ROEL MORTICIAN INVESTIGATOR, GODWIN 799.81 DECREASED LIBIDO 04/29/2013 ROEL MORTICIAN INVESTIGATOR, GODWIN V26.9 PROCREATIVE MANAGEMENT 04/30/2013 MEJIA JONES, [...] JAMA MD 338.29 CHRONIC PAIN 05/17/2013 ROEL MORTICIAN INVESTIGATOR, GODWIN 338.29 CHRONIC PAIN 05/17/2013 BRYANL MORTICIAN INVESTIGATOR, FLO L 338.29 CHRONIC PAIN 05/17/2013 ROEL MORTICIAN INVESTIGATOR, GODWIN 338.29 CHRONIC PAIN 05/17/2013 MADL MORTICIAN INVESTIGATOR, FLO L 338.29 CHRONIC PAIN 05/17/2013 ROEL MORTICIAN INVESTIGATOR, GODWIN 338.29 CHRONIC PAIN 05/17/2013 ROEL MORTICIAN INVESTIGATOR, GODWIN 338.29 CHRONIC PAIN 05/17/2013 MADL MORTICIAN INVESTIGATOR, FLO L 338.29 CHRONIC PAIN 05/17/2013 MADL MORTICIAN INVESTIGATOR, FLO L 338.29 CHRONIC PAIN 05/17/2013 ROEL MORTICIAN INVESTIGATOR, GODWIN 338.29 CHRONIC PAIN 05/17/2013 ELIAS DENNIS APRN 338.29 CHRONIC PAIN 05/17/2013 [facility], DEMOND Fernando 338.29 CHRONIC PAIN 05/17/2013 MADL MORTICIAN INVESTIGATOR, FLO L 338.29 CHRONIC PAIN 05/17/2013 NUSRAT JENKINSS, JOSE 338.29 CHRONIC PAIN 05/17/2013 [facility], DEMOND R 338.29 CHRONIC PAIN 05/17/2013 [facility], DEMOND R 338.29 CHRONIC PAIN 05/17/2013 ROEL MORTICIAN INVESTIGATOR, GODWIN 338.29 CHRONIC PAIN 05/17/2013 MANUEL DO, NICOLA K 338.29 CHRONIC PAIN 05/17/2013 ROEL MORTICIAN INVESTIGATOR, GODWIN 338.29 CHRONIC PAIN 05/17/2013 ROEL MORTICIAN INVESTIGATOR, GODWIN 338.29 CHRONIC PAIN 06/22/2013 V70.5 HEALTH [...] HEALTH EXAMINATION OF DEFINED SUBPOPULATIONS 06/22/2013 ROEL MORTICIAN INVESTIGATOR, GODWIN V70.5 HEALTH EXAMINATION OF DEFINED SUBPOPULATIONS 06/22/2013 MADL MORTICIAN INVESTIGATOR, FLO L V70.5 HEALTH EXAMINATION OF DEFINED SUBPOPULATIONS 06/22/2013 ROEL MORTICIAN INVESTIGATOR, GODWIN V70.5 HEALTH EXAMINATION OF DEFINED SUBPOPULATIONS 06/22/2013 MADL MORTICIAN INVESTIGATOR, FLO L V70.5 HEALTH EXAMINATION OF DEFINED SUBPOPULATIONS 06/22/2013 ROEL MORTICIAN INVESTIGATOR, GODWIN V70.5 HEALTH EXAMINATION OF DEFINED SUBPOPULATIONS 06/22/2013 ROEL MORTICIAN INVESTIGATOR, GODWIN V70.5 HEALTH EXAMINATION OF DEFINED SUBPOPULATIONS 06/22/2013 MADL MORTICIAN INVESTIGATOR, FLO L V70.5 HEALTH EXAMINATION OF DEFINED SUBPOPULATIONS 06/22/2013 MADL MORTICIAN INVESTIGATOR, FLO L V70.5 HEALTH EXAMINATION OF DEFINED SUBPOPULATIONS 06/22/2013 ROEL MORTICIAN INVESTIGATOR, GODWIN V70.5 HEALTH EXAMINATION OF DEFINED SUBPOPULATIONS 06/22/2013 SONNYELIAS Kirkpatrick APRN A V70.5 HEALTH EXAMINATION OF DEFINED SUBPOPULATIONS 06/22/2013 [facility], DEMOND R V70.5 HEALTH EXAMINATION OF DEFINED SUBPOPULATIONS 06/22/2013 MADL MORTICIAN INVESTIGATOR, FLO L V70.5 HEALTH EXAMINATION OF DEFINED SUBPOPULATIONS 06/22/2013 JOSE SILVERIO DDS V70.5 HEALTH EXAMINATION OF DEFINED SUBPOPULATIONS 06/22/2013 [facility], DEMOND R V70.5 HEALTH EXAMINATION OF DEFINED SUBPOPULATIONS 06/22/2013 [facility], DEMOND R V70.5 HEALTH EXAMINATION OF DEFINED SUBPOPULATIONS 06/22/2013 ROEL MORTICIAN INVESTIGATOR, GODWIN V70.5 HEALTH EXAMINATION OF DEFINED SUBPOPULATIONS 06/22/2013 NICOLA MANUEL DO V70.5 HEALTH EXAMINATION OF DEFINED SUBPOPULATIONS 06/22/2013 ROEL MORTICIAN INVESTIGATOR, GODWIN V70.5 HEALTH EXAMINATION OF DEFINED SUBPOPULATIONS 06/22/2013 ROEL MORTICIAN INVESTIGATOR, GODWIN V70.5 HEALTH EXAMINATION OF DEFINED SUBPOPULATIONS 07/04/2013 NICOLA MANUEL DO 296.30 MO DEPRESSIVE RECURRENT UNSPECIFIED 07/04/2013 JASON HUNTER APRN 296.30 MO DEPRESSIVE RECURRENT UNSPECIFIED 07/04/2013 WOLF JAMA MD 296.30 MO DEPRESSIVE RECURRENT UNSPECIFIED 07/04/2013 MANUEL NICOLA BLATNON 296.30 MO DEPRESSIVE RECURRENT UNSPECIFIED 07/04/2013 KELY [...] 296.30 MO DEPRESSIVE RECURRENT UNSPECIFIED 07/04/2013 ROEL MORTICIAN INVESTIGATOR, GODWIN 296.30 MO DEPRESSIVE RECURRENT UNSPECIFIED 07/04/2013 MADL MORTICIAN INVESTIGATOR, FLO L 296.30 MO DEPRESSIVE RECURRENT UNSPECIFIED 07/04/2013 ROEL MORTICIAN INVESTIGATOR, GODWIN 296.30 MO DEPRESSIVE RECURRENT UNSPECIFIED 07/04/2013 ROEL MORTICIAN INVESTIGATOR, GODWIN 296.30 MO DEPRESSIVE RECURRENT UNSPECIFIED 07/04/2013 MADL MORTICIAN INVESTIGATOR, FLO L 296.30 MO DEPRESSIVE RECURRENT UNSPECIFIED 07/04/2013 MADL MORTICIAN INVESTIGATOR, FLO L 296.30 MO DEPRESSIVE RECURRENT UNSPECIFIED 07/04/2013 ROEL MORTICIAN INVESTIGATOR, GODWIN 296.30 MO DEPRESSIVE RECURRENT UNSPECIFIED 07/04/2013 SONNY MORTICIAN INVESTIGATOR, ELIAS A 296.30 MO DEPRESSIVE RECURRENT UNSPECIFIED 07/04/2013 [facility], DEMOND R 296.30 MO DEPRESSIVE RECURRENT UNSPECIFIED 07/04/2013 MADL MORTICIAN INVESTIGATOR, FLO L 296.30 MO DEPRESSIVE RECURRENT UNSPECIFIED 07/04/2013 JOSE SILVERIO DDS 296.30 MO DEPRESSIVE RECURRENT UNSPECIFIED 07/04/2013 [facility], DEMOND R 296.30 MO DEPRESSIVE RECURRENT UNSPECIFIED 07/04/2013 [facility], DEMOND R 296.30 MO DEPRESSIVE RECURRENT UNSPECIFIED 07/04/2013 ROEL MORTICIAN INVESTIGATOR, GODWIN 296.30 MO DEPRESSIVE RECURRENT UNSPECIFIED 07/04/2013 NICOLA MANUEL DO 296.30 MO DEPRESSIVE RECURRENT UNSPECIFIED 07/04/2013 ROEL MORTICIAN INVESTIGATOR, GODWIN 296.30 MO DEPRESSIVE RECURRENT UNSPECIFIED 07/04/2013 ROEL MORTICIAN INVESTIGATOR, GODWIN 296.30 MO DEPRESSIVE RECURRENT UNSPECIFIED 08/14/2013 [...] MD V23.9 , HIGH-RISK (UNSPEC) 08/14/2013 ROEL MORTICIAN INVESTIGATOR, GODWIN V23.9 , HIGH-RISK (UNSPEC) 08/14/2013 MADL MORTICIAN INVESTIGATOR, FLO L V23.9 , HIGH-RISK (UNSPEC) 08/14/2013 ROEL MORTICIAN INVESTIGATOR, GODWIN V23.9 , HIGH-RISK (UNSPEC) 08/14/2013 MADL MORTICIAN INVESTIGATOR, FLO L V23.9 , HIGH-RISK (UNSPEC) 08/14/2013 ROEL MORTICIAN INVESTIGATOR, GODWIN V23.9 , HIGH-RISK (UNSPEC) 08/14/2013 ROEL MORTICIAN INVESTIGATOR, GODWIN V23.9 , HIGH-RISK (UNSPEC) 08/14/2013 MADL MORTICIAN INVESTIGATOR, FLO L V23.9 , HIGH-RISK (UNSPEC) 08/14/2013 MADL MORTICIAN INVESTIGATOR, FLO L V23.9 , HIGH-RISK (UNSPEC) 08/14/2013 ROEL MORTICIAN INVESTIGATOR, GODWIN V23.9 , HIGH-RISK (UNSPEC) 08/14/2013 SONNY MENG, ELIAS A V23.9 , HIGH-RISK (UNSPEC) 08/14/2013 [facility], DEMOND R V23.9 , HIGH-RISK (UNSPEC) 08/14/2013 MADL MORTICIAN INVESTIGATOR, FLO L V23.9 , HIGH-RISK (UNSPEC) 08/14/2013 JOSE SILVERIO DDS V23.9 , HIGH-RISK (UNSPEC) 08/14/2013 [facility], DEMOND R V23.9 , HIGH-RISK (UNSPEC) 08/14/2013 [facility], DEMOND R V23.9 , HIGH-RISK (UNSPEC) 08/14/2013 ROEL MORTICIAN INVESTIGATOR, GODWIN V23.9 , HIGH-RISK (UNSPEC) 08/14/2013 NICOLA MANUEL DO V23.9 , HIGH-RISK (UNSPEC) 08/14/2013 ROEL MORTICIAN INVESTIGATOR, GODWIN V23.9 , HIGH-RISK (UNSPEC) 08/14/2013 ROEL MORTICIAN INVESTIGATOR, GODWIN V23.9 , HIGH-RISK (UNSPEC) 09/11/2013 WOLF JAMA MD 788.1 DYSURIA 09/11/2013 NICOLA MANUEL DO K 788.1 DYSURIA 09/11/2013 IDALIA BAKER, KELY Dickens 788.1 DYSURIA 09/11/2013 GARTON MORTICIAN INVESTIGATORJASON Kirkpatrick D 788.1 DYSURIA 09/11/2013 GARMYRA MORTICIAN INVESTIGATORJASON Kirkpatrick D 788.1 DYSURIA 09/11/2013 GARTON MORTICIAN INVESTIGATOR, JASON D 788.1 DYSURIA 09/11/2013 WOLF JAMA MD 788.1 DYSURIA 09/11/2013 ROEL MORTICIAN INVESTIGATOR, GODWIN 788.1 DYSURIA 09/11/2013 MADL MORTICIAN INVESTIGATOR, FLO L 788.1 DYSURIA 09/11/2013 ROEL MORTICIAN INVESTIGATOR, GODWIN 788.1 DYSURIA 09/11/2013 MADL MORTICIAN INVESTIGATOR, FLO L 788.1 DYSURIA 09/11/2013 ROEL MORTICIAN INVESTIGATOR, GODWIN 788.1 DYSURIA 09/11/2013 ROEL MORTICIAN INVESTIGATOR, GODWIN 788.1 DYSURIA 09/11/2013 MADL MORTICIAN INVESTIGATOR, FLO L 788.1 DYSURIA 09/11/2013 MADL MORTICIAN INVESTIGATOR, FLO L 788.1 DYSURIA 09/11/2013 ROEL MORTICIAN INVESTIGATOR, GODWIN 788.1 DYSURIA 09/11/2013 SONNYKENJI MENG, ELIAS A 788.1 DYSURIA 09/11/2013 [facility], DEMOND R 788.1 DYSURIA 09/11/2013 MADL MORTICIAN INVESTIGATOR, FLO L 788.1 DYSURIA 09/11/2013 JOSE SILVERIO DDS 788.1 DYSURIA 09/11/2013 [facility], DEMOND R 788.1 DYSURIA 09/11/2013 [facility], DEMOND R 788.1 DYSURIA 09/11/2013 ROEL MORTICIAN INVESTIGATOR, GODWIN 788.1 DYSURIA 09/11/2013 NICOLA MANUEL DO K 788.1 DYSURIA 09/11/2013 ROEL MORTICIAN INVESTIGATOR, GODWIN 788.1 DYSURIA 09/11/2013 ROEL GODWIN MENG [...] INFECTION-DELIV 03/26/2014 JENNIFER MAYES MD, Ot V06.1 [id number], COMBINED [ 03/26/2014 JENNIFER MAYES MD, Ot V06.5 TETANUS-DIPHTHERIA [TD][DT] 03/26/2014 JENNIFER MAYES MD Ot V27.0 DELIVER-SINGLE LIVEBORN 05/01/2014 MIGDALIA ARMON DO Ot 599.0 URIN TRACT INFECTION NOS 05/01/2014 YENNY MIGDALIA BLANTON Ot 724.5 BACKACHE NOS 05/27/2014 MADL MORTICIAN INVESTIGATOR, FLO L 724.2 BACK PAIN, LOWER 05/27/2014 ROEL MORTICIAN INVESTIGATOR, GODWIN 724.2 BACK PAIN, LOWER 05/27/2014 MADL MORTICIAN INVESTIGATOR, FLO L 724.2 BACK PAIN, LOWER 05/27/2014 ROEL MORTICIAN INVESTIGATOR, GODWIN 724.2 BACK PAIN, LOWER 05/27/2014 ROEL MORTICIAN INVESTIGATOR, GODWIN 724.2 BACK PAIN, LOWER 05/27/2014 MADL MORTICIAN INVESTIGATOR, FLO L 724.2 BACK PAIN, LOWER 05/27/2014 MADL MORTICIAN INVESTIGATOR, FLO L 724.2 BACK PAIN, LOWER 05/27/2014 ROLE MORTICIAN INVESTIGATOR, GODWIN 724.2 BACK PAIN, LOWER 05/27/2014 SONNY MORTICIAN INVESTIGATOR, ELIAS A 724.2 BACK PAIN, LOWER 05/27/[facility]24.2 BACK PAIN, LOWER 05/27/2014 MADL MORTICIAN INVESTIGATOR, FLO L 724.2 BACK PAIN, LOWER 05/27/2014 NUSRAT DDS, JOSE 724.2 BACK PAIN, LOWER 05/27/2014 [facility], DEMOND R 724.2 BACK PAIN, LOWER 05/27/2014 [facility], DEMOND R 724.2 BACK PAIN, LOWER 05/27/2014 ROEL MORTICIAN INVESTIGATOR, GODWIN 724.2 BACK PAIN, LOWER 05/27/2014 NICOLA MANUEL DO 724.2 BACK PAIN, LOWER 05/27/2014 ROEL MORTICIAN INVESTIGATOR, GODWIN 724.2 BACK PAIN, LOWER 05/27/2014 ROEL MORTICIAN INVESTIGATOR, GODWIN 724.2 BACK PAIN, LOWER 06/05/2014 IVONNE JONES, REZA Steel Ot 490 BRONCHITIS NOS 06/05/2014 REZA CORONADO MD Ot 786.2 COUGH 06/10/2014 ROEL MENG, GODWIN 296.35 MO DEPRESSIVE RECURRENT IN PART OR UNSPECIFIED REMISSION 06/10/2014 ROEL MENG GODWIN 300.02 AN GEN ANXIETY 06/10/2014 MADL MORTICIAN INVESTIGATOR, FLO L 296.35 MO DEPRESSIVE RECURRENT IN PART OR UNSPECIFIED REMISSION 06/10/2014 BRYANTima MORTICIAN INVESTIGATOR, FLO L 300.02 AN GEN ANXIETY 06/10/2014 ROEL MENG GODWIN 296.35 MO DEPRESSIVE RECURRENT IN PART OR UNSPECIFIED REMISSION 06/10/2014 ROEL MENG GODWIN 300.02 AN GEN ANXIETY 06/10/2014 ROEL MORTICIAN INVESTIGATOR, GODWIN 296.35 MO DEPRESSIVE RECURRENT IN PART OR UNSPECIFIED REMISSION 06/10/2014 ROEL MENG GODWIN 300.02 AN GEN ANXIETY 06/10/2014 MADL MORTICIAN INVESTIGATOR, FLO L 296.35 MO DEPRESSIVE RECURRENT IN PART OR UNSPECIFIED REMISSION 06/10/2014 MADL MORTICIAN INVESTIGATOR, FLO L 300.02 AN GEN ANXIETY 06/10/2014 MADL MORTICIAN INVESTIGATOR, FLO L 296.35 MO DEPRESSIVE RECURRENT IN PART OR UNSPECIFIED REMISSION 06/10/2014 BRYANL MORTICIAN INVESTIGATOR, FLO L 300.02 AN GEN ANXIETY 06/10/2014 MICHAEL SEVILLA APRNETTE 296.35 MO DEPRESSIVE RECURRENT IN PART OR UNSPECIFIED REMISSION 06/10/2014 ROEL MENG GODWIN 300.02 AN GEN ANXIETY 06/10/2014 SONNYKENJI MENG ELIAS A 296.35 MO DEPRESSIVE RECURRENT IN PART OR UNSPECIFIED REMISSION 06/10/2014 SONNY MENG ELIAS A 300.02 AN GEN ANXIETY 06/10/2014 [facility], DEMOND R 296.35 MO DEPRESSIVE RECURRENT IN PART OR UNSPECIFIED REMISSION 06/10/2014 [facility], DEMOND R 300.02 AN GEN ANXIETY 06/10/2014 LISA MORTICIAN INVESTIGATOR, FLO L 296.35 MO DEPRESSIVE RECURRENT IN PART OR UNSPECIFIED REMISSION 06/10/2014 LISA MORTICIAN INVESTIGATOR, FLO L 300.02 AN GEN ANXIETY 06/10/2014 NUSRAT JENKINSSJOSE 296.35 MO DEPRESSIVE RECURRENT IN PART OR UNSPECIFIED REMISSION 06/10/2014 SILVERIOJOSE OLEA DDS 300.02 AN GEN ANXIETY 06/10/2014 [facility], DEMOND R 296.35 MO DEPRESSIVE RECURRENT IN PART OR UNSPECIFIED REMISSION 06/10/2014 [facility], DEMOND R 300.02 AN GEN ANXIETY 06/10/2014 [facility], DEMOND R 296.35 MO DEPRESSIVE RECURRENT IN PART OR UNSPECIFIED REMISSION 06/10/2014 [facility], DEMOND R 300.02 AN GEN ANXIETY 06/10/2014 ROEL MORTICIAN INVESTIGATOR, GODWIN 296.35 MO DEPRESSIVE RECURRENT IN PART OR UNSPECIFIED REMISSION 06/10/2014 ROEL MORTICIAN INVESTIGATOR, GODWIN 300.02 AN GEN ANXIETY 06/10/2014 NICOLA MANUEL DO K 296.35 MO DEPRESSIVE RECURRENT IN PART OR UNSPECIFIED REMISSION 06/10/2014 NICOLA MANUEL DO 300.02 AN GEN ANXIETY 06/10/2014 ROEL MORTICIAN INVESTIGATOR, GODWIN 296.35 MO DEPRESSIVE RECURRENT IN PART OR UNSPECIFIED REMISSION 06/10/2014 ROEL MORTICIAN INVESTIGATOR, GODWIN 300.02 AN GEN ANXIETY 06/10/2014 ROEL MORTICIAN INVESTIGATOR, GODWIN 296.35 MO DEPRESSIVE RECURRENT IN PART OR UNSPECIFIED REMISSION 06/10/2014 ROEL MORTICIAN INVESTIGATOR, GODWIN 300.02 AN GEN ANXIETY 07/04/2014 MADL MORTICIAN INVESTIGATOR, FLO L 782.7 SPONTANEOUS ECCHYMOSES 07/04/2014 ROEL MORTICIAN INVESTIGATOR, GODWIN 782.7 SPONTANEOUS ECCHYMOSES 07/04/2014 ROEL MORTICIAN INVESTIGATOR, GODWIN 782.7 SPONTANEOUS ECCHYMOSES 07/04/2014 MADL MORTICIAN INVESTIGATOR, FLO L 782.7 SPONTANEOUS ECCHYMOSES 07/04/2014 MADL MORTICIAN INVESTIGATOR, FLO L 782.7 SPONTANEOUS ECCHYMOSES 07/04/2014 ROEL MORTICIAN INVESTIGATOR, GODWIN 782.7 SPONTANEOUS ECCHYMOSES 07/04/2014 SONNY MENG ELIAS A 782.7 SPONTANEOUS ECCHYMOSES 07/04/2014 [facility], DEMOND R 782.7 SPONTANEOUS ECCHYMOSES 07/04/2014 MADL MORTICIAN INVESTIGATOR, FLO L 782.7 SPONTANEOUS ECCHYMOSES 07/04/2014 JOSE SILVERIO DDS 782.7 SPONTANEOUS ECCHYMOSES 07/04/2014 [facility], DEMOND R 782.7 SPONTANEOUS ECCHYMOSES 07/04/2014 [facility], DEMOND R 782.7 SPONTANEOUS ECCHYMOSES 07/04/2014 ROEL MORTICIAN INVESTIGATOR, GODWIN 782.7 SPONTANEOUS ECCHYMOSES 07/04/2014 NICOLA MANUEL DO 782.7 SPONTANEOUS ECCHYMOSES 07/04/2014 ROEL MORTICIAN INVESTIGATOR, GODWIN 782.7 SPONTANEOUS ECCHYMOSES 07/04/2014 ROEL MORTICIAN INVESTIGATOR, GODWIN 782.7 SPONTANEOUS ECCHYMOSES 08/04/2014 ISMAEL SOL APRN Ot 724.5 BACKACHE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 Magnesium - 12/02/16 10:55 Magnesium 1.7 mg/dL 1.8-2.4 Serum or plasma troponin i.cardiac measurement (mass/volume) - 12/02/16 10:55 Serum or plasma troponin i.cardiac measurement (mass/volume) < ng/mL <0.30 Serum or plasma thyrotropin measurement by detection limit <=0.05 miu/l (units/volume) - 12/02/16 10:55 Serum or plasma thyrotropin measurement by detection limit <=0.05 miu/l (units/volume) 2.16 u[iU]/mL 0.35-4.94 Serum or plasma ethanol [...] sediment leukocyte count by microscopy (number/high power field) NONE NRG Bacteria detection in urine sediment [...] Automated erythrocyte mean corpuscular hemoglobin concentration measurement (mass/volume) 33 g/dL 32-36 Automated erythrocyte distribution width ratio 13.7 % 10.0- 14.5 Automated blood platelet count (count/volume) 395 10*3/uL [...] Blood monocytes automated count (number/volume) 0.7 10*3 0.0- 1.0 Automated eosinophil count 0.4 10*3/uL 0.0-0.3 Automated [...] Serum or plasma aspartate aminotransferase measurement (enzymatic activity/volume) 18 U/L 5-34 Serum or plasma alanine aminotransferase measurement (enzymatic activity/volume) 12 U/L 0-55 Serum or plasma protein [...] sediment leukocyte count by microscopy (number/high power field) [HPF] NRG Bacteria detection in urine sediment [...] resistant Staphylococcus aureus (MRSA) screening culture - 01/04/17 12:27 Methicillin resistant Staphylococcus aureus (MRSA) screening culture NEG NRG Urine beta human chorionic gonadotropin (hCG) measurement - 01/09/17 10:55 Urine beta human chorionic gonadotropin (hCG) measurement NEGATIVE NEGATIVE Blood type T Indirect antibody screen panel - 01/09/17 11:04 ABO+Rh group AN NRG Transfusion band number [id number] NRG Blood group antibody screen NEGATIVE NRG [...] Automated erythrocyte mean corpuscular hemoglobin concentration measurement (mass/volume) 35 g/dL 32-36 Automated erythrocyte distribution width ratio 13.2 % 10.0- 14.5 Automated blood platelet count (count/volume) 242 10*3/uL [...] Blood monocytes automated count (number/volume) 0.8 10*3 0.0- 1.0 Automated eosinophil count 0.2 10*3/uL 0.0-0.3 Automated blood basophil count (count/volume) 0.0 10*3/uL 0.0-0.1 Methicillin resistant Staphylococcus aureus (MRSA) screening culture - 11/30/17 10:20 MRSA SCREEN RESULT MRSA ISOLATED NR LIPID PANEL - 02/21/18 10:29 CHOLESTEROL, TOTAL 155 mg/dL <200 HDL CHOLESTEROL 62 mg/dL >50 TRIGLYCERIDES 61 mg/dL <150 LDL-CHOLESTEROL 79 mg/dL (calc) NRG CHOL/HDLC RATIO 2.5 (calc) <5.0 NON HDL CHOLESTEROL 93 mg/dL (calc) <130 CMP - 02/21/18 10:29 GLUCOSE 84 mg/dL 65-99 UREA NITROGEN (BUN) 16 mg/dL 7-25 CREATININE 0.63 mg/dL 0.50-1.10 eGFR NON-AFR. GIBR[place]ARIAN 123 mL/min/1.73m2 > OR=60 eGFR 142 mL/min/1.73m2 [...] Automated erythrocyte mean corpuscular hemoglobin concentration measurement (mass/volume) 34 g/dL 32-36 Automated erythrocyte distribution width ratio 12.3 % 10.0- 14.5 Automated blood platelet count (count/volume) 223 10*3/uL [...] Blood monocytes automated count (number/volume) 0.9 10*3 0.0- 1.0 Automated eosinophil count 0.2 10*3/uL 0.0-0.3 Automated [...] sediment leukocyte count by microscopy (number/high power field) [HPF] NRG Bacteria detection in urine sediment [...] Serum or plasma aspartate aminotransferase measurement (enzymatic activity/volume) 11 U/L 5-34 Serum or plasma alanine aminotransferase measurement (enzymatic activity/volume) 10 U/L 0-55 Serum or plasma protein [...] sediment leukocyte count by microscopy (number/high power field) RARE NRG Bacteria detection in urine sediment by light microscopy TRACE NRG Crystals detection in urine sediment by light microscopy NONE NRG Casts detection in urine sediment by light microscopy NONE NRG Mucus detection in urine sediment by light microscopy MODERATE NRG Complete urinalysis with reflex to culture NO NRG CMP - 03/11/19 10:18 GLUCOSE 84 mg/dL 65-99 UREA NITROGEN (BUN) 16 mg/dL 7-25 CREATININE 0.67 mg/dL 0.50-1.10 eGFR NON-AFR. GIBR[place]ARIAN 120 mL/min/1.73m2 > OR=60 eGFR 139 mL/min/1.73m2 > OR=60 BUN/CREATININE RATIO NOT APPLICABLE (calc) 6-22 SODIUM 138 mmol/L 135-146 POTASSIUM 4.0 mmol/L 3.5-5.3 CHLORIDE 104 mmol/L 98-110 CARBON DIOXIDE 29 mmol/L 20-32 CALCIUM 9.8 mg/dL 8.6-10.2 PROTEIN, TOTAL 7.6 g/dL 6.1-8.1 ALBUMIN 4.8 g/dL 3.6-5.1 GLOBULIN 2.8 g/dL (calc) 1.9-3.7 ALBUMIN/GLOBULIN RATIO 1.7 (calc) 1.0-2.5 BILIRUBIN, TOTAL 0.5 mg/dL 0.2-1.2 ALKALINE PHOSPHATASE 56 U/L 33-115 AST 13 U/L 10-30 ALT 7 U/L 6-29 Encounters ACCT No. Visit Date/Time Discharge Status Pt. Type Provider Facility Loc./Unit Complaint [id number] 02/27/2015 09:25:00 02/27/2015 23:59:59 CLS Outpatient GODWIN SEVILLA APRN [id number] 01/23/2015 11:47:00 01/23/2015 23:59:59 CLS Outpatient GODWIN SEVILLA APRN [id number] 12/18/2014 16:07:00 12/18/2014 23:59:59 CLS Outpatient MAR BLANTON NICOLA Jacinta [id number] 12/18/2014 10:25:00 12/18/2014 23:59:59 CLS Outpatient GODWIN SEVILLA APRN [id number] 12/16/2014 10:01:00 12/16/2014 23:59:59 [id number] 11/26/2014 14:03:00 11/26/2014 23:59:59 CLS Outpatient [facility] Fernando [id number] 11/21/2014 08:26:00 11/21/2014 23:59:59 CLS Outpatient JOSE SILVERIO DDS [id number] 11/10/2014 09:24:00 11/10/2014 23:59:59 CLS Outpatient FLO GONZALEZ APRN [id number] 10/31/2014 11:08:00 10/31/2014 23:59:59 [facility] [id number] 10/29/2014 16:35:00 10/29/2014 23:59:59 CLS Outpatient ELIAS DENNIS APRN [id number] 10/17/2014 11:27:00 10/17/2014 23:59:59 CLS Outpatient GODWIN SEVILLA APRN [id number] 09/16/2014 09:30:00 09/16/2014 23:59:59 CLS Outpatient FLO GONZALEZ APRN [id number] 09/16/2014 09:30:00 09/16/2014 23:59:59 CLS Outpatient FLO GONZALEZ APRN [id number] 08/01/2014 13:23:00 08/01/2014 23:59:59 CLS Outpatient GODWIN SEVILLA APRN [id number] 08/01/2014 13:23:00 08/01/2014 23:59:59 CLS Outpatient GODWIN SEVILLA APRN [id number] 07/04/2014 08:35:00 07/04/2014 23:59:59 CLS Outpatient FLO GONZALEZ APRN [id number] 06/10/2014 09:22:00 06/10/2014 23:59:59 CLS Outpatient GODWIN SEVILLA APRN [id number] 05/27/2014 08:53:00 05/27/2014 23:59:59 CLS Outpatient FLO GONZALEZ APRN [id number] 05/08/2014 11:48:00 05/08/2014 23:59:59 CLS Outpatient GODWIN SEVILLA APRN [id number] 04/10/2014 09:33:00 04/10/2014 23:59:59 CLS Outpatient WOLF JAMA MD [id number] 03/11/2014 13:00:00 03/11/2014 23:59:59 CLS Outpatient JASON HUNTER APRN [id number] 03/11/2014 13:00:00 03/11/2014 23:59:59 CLS Outpatient JASON HUNTER APRN [id number] 12/10/2013 10:52:00 12/10/2013 23:59:59 CLS Outpatient JASON HUNTER APRN [id number] 10/18/2013 09:59:00 10/18/2013 23:59:59 CLS Outpatient KELY FRIEDMAN DDS [id number] 09/16/2013 12:50:00 09/16/2013 23:59:59 CLS Outpatient NICOLA MANUEL DO [id number] 09/11/2013 16:55:00 09/11/2013 23:59:59 CLS Outpatient WOLF JAMA MD [id number] 08/15/2013 12:35:00 08/15/2013 23:59:59 CLS Outpatient JASON HUNTER APRN [id number] 08/01/2013 09:18:00 08/01/2013 23:59:59 CLS Outpatient NICOLA MANUEL DO [id number] 02/13/2013 13:59:00 02/13/2013 23:59:59 CLS Outpatient [id number] 01/24/2013 15:27:00 01/24/2013 23:59:59 CLS Outpatient JASON SOLANO DO [id number] 01/16/2013 10:21:00 01/16/2013 23:59:59 CLS Outpatient NICOLA MANUEL DO [id number] 11/29/2012 15:05:00 11/29/2012 23:59:59 CLS Outpatient [id number] 09/28/2012 08:28:00 09/28/2012 23:59:59 [place] [id number] 09/03/2012 15:05:00 09/03/2012 23:59:59 CLS Outpatient WOLF JAMA MD [id number] 06/22/2013 09:12:00 Document Registration [id number] 05/15/2013 10:52:00 Document Registration [id number] 05/09/2013 15:22:00 Document Registration [id number] 04/29/2013 08:59:00 Document Registration [id number] 04/26/2013 14:51:00 Document Registration [id number] 04/19/2013 10:48:00 Document Registration [id number] 04/02/2013 13:34:00 Document Registration [id number] 03/26/2013 13:02:00 Document Registration [id number] 03/23/2013 09:54:00 Document Registration [id number] 02/22/2013 12:11:00 Document Registration [id number] 03/04/2019 15:21:00 03/04/2019 16:58:00 DIS Emergency CORNEL JONES, ERIKA Shin [facility] ER LOWER BACK/PELVIS PAIN [id number] 02/28/2019 08:05:00 02/28/2019 23:59:59 CLS Outpatient DARY REDMAN MD [facility] RAD LLQ PAIN,NAUSEA [id number] 02/18/2019 07:31:00 02/18/2019 23:59:59 CLS Outpatient DARY REDMAN MD [facility] RAD LLQ PAIN, NAUSEA [id number] 08/05/2018 20:11:00 08/05/2018 23:00:00 DIS Emergency ISMAEL SOL MORTICIAN INVESTIGATOR [facility] ER ABD PAIN [id number] 07/11/2018 12:50:00 07/11/2018 23:59:59 CLS Outpatient DAVID SANDERS MD [facility] CARD ANTERIOR CHEST WALL PAIN,HEART PALPITATIONS [id number] 07/02/2018 07:47:00 07/02/2018 23:59:59 CLS Outpatient DAVID SANDERS MD [facility] CARD ANTERIOR CHEST WALL PAIN,HEART PALPITATIONS [id number] 05/04/2018 08:44:00 05/14/2018 09:11:00 DIS Outpatient JENNIFER MAYES MD [facility] REHAB PELVIC FLOOR WEAKNESS [id number] 04/27/2018 18:44:00 04/27/2018 19:17:00 DIS Emergency ISMAEL SOL MORTICIAN INVESTIGATOR [facility] ER JAW AND BACK PAIN [id number] 02/02/2018 08:37:00 02/02/2018 23:59:59 CLS Preadmit DAKSHA JOHNS DO [facility] RAD M54.16 RADICULOPATHY [id number] 01/09/2018 00:07:00 01/09/2018 01:21:00 DIS Emergency MIRANDA LOCO DO [facility] ER SEVERE BACK PAIN GOES DOWN INTO LEGS HIPS [id number] 12/21/2017 01:43:00 12/21/2017 02:17:00 DIS Emergency CALVIN JACOBO MD [facility] ER POST OP ABD SURGERY BLEEDING THRU,VERY PAINFULL [id number] 12/20/2017 10:50:00 12/20/2017 16:50:00 DIS Outpatient JENNIFER MAYES MD [facility] ENDOMETRIOSIS,CHRONIC PELVIC PAIN [id number] 11/30/2017 10:02:00 11/30/2017 10:40:00 DIS Outpatient JENNIFER MAYES MD [facility] PREOP ENDOMETRIOSIS, CHRONIC PELVIC PAIN [id number] 04/05/2017 09:36:00 04/05/2017 23:59:59 CLS Outpatient FLO GONZALEZ 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 [facility]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 R10.2 PELVIC PAIN [id number] 02/03/2017 09:42:00 02/03/2017 23:59:59 CLS Preadmit JENNIFER MAYES MD [facility] REHAB LBP TWO MONTHS ; S/P HYSTERECTOMY [id number] 02/02/2017 12:09:00 02/02/2017 12:47:00 DIS Emergency JESSIE ROBERTS MD [facility] ER DENTAL/JAW PAIN [id number] 01/09/2017 10:50:00 01/10/2017 09:45:00 DIS Outpatient JENNIFER MAYES MD [facility] SDC CPP;DUB;ENDOMETRIOSIS [id number] 01/04/2017 12:09:00 01/04/2017 12:30:00 DIS Outpatient JENNIFER MAYES MD [facility] PREOP CPP;DUB;ENDOMETRIOSIS [id number] 12/16/2016 00:59:00 12/16/2016 02:52:00 DIS Emergency CALVIN JACOBO MD [facility] ER NAUSEA,FEVER,HAD BABY ON 11-29-16 [id number] 12/02/2016 10:48:00 12/02/2016 14:00:00 DIS Emergency SUNITA BERNAL [facility] ER PALPITATIONS/BLURRY VISION [id number] 11/29/2016 17:45:00 12/01/2016 13:30:00 DIS Inpatient JENNIFER MAYES MD [facility] LDRP LABOR [id number] 11/26/2016 13:04:00 11/26/2016 15:11:00 DIS Outpatient JENNIFER MAYES MD [facility] WSo RIB PAIN/LOWER BACK PAIN [id number] 11/08/2016 18:28:00 11/08/2016 21:23:00 DIS Outpatient JENNIFER MAYES MD [facility] WSo LOWER BACK PAIN/RIB PAIN/ABD PAIN/GROIN PAIN [id number] 10/05/2016 12:03:00 10/05/2016 23:59:59 CLS Outpatient JENNIFER MAYES MD [facility] WSo RH NEGATIVE IN [id number] 09/14/2016 12:52:00 09/14/2016 13:45:00 DIS Outpatient JENNIFER MAYES MD [facility] WSo LOOSING MUCUS PLUG 26 WKS PREG [id number] 07/22/2016 16:02:00 07/22/2016 19:50:00 DIS Emergency SUNITA BERNAL [facility] ER FEVER/CANNOT URINATE [id number] 06/29/2016 14:38:00 06/29/2016 18:17:00 DIS Emergency REZA CORONADO MD [facility] ER VAG BLEEDING 15 WKS PREG [id number] 03/23/2016 21:42:00 03/24/2016 01:40:00 DIS Emergency CLAUDY MIRANDA BLANTON [facility] ER CONFUSED,DROWSY [id number] 01/02/2016 01:08:00 01/02/2016 01:43:00 DIS Emergency MIRANDA LOCO DO [facility] ER RT SIDE OF FACE PAINFUL,DENTAL PAIN [id number] 11/04/2015 14:43:00 11/04/2015 23:59:59 CLS Outpatient FELICIA RESTREPO APRN [facility] RAD HISTORY OF ENDOMETRIOSIS [id number] 10/10/2015 16:42:00 10/10/2015 18:09:00 DIS Emergency ISMAEL SOL MORTICIAN INVESTIGATOR [facility] ER HIP/BACK PAIN - POSSIBLY [id number] 08/31/2015 17:50:00 08/31/2015 19:59:00 DIS Emergency ISMAEL SOL MORTICIAN INVESTIGATOR [facility] ER SEIZURE [id number] 08/26/2015 03:31:00 08/26/2015 05:08:00 DIS Emergency MIRANDA LOCO DO [facility] ER RT SIDE ABD PAIN [id number] 05/18/2015 11:11:00 05/18/2015 12:42:00 DIS Emergency ISMAEL SOL APRN [facility] ER ABD/LOWER BACK PAIN UTI SYMPTOMS [id number] 02/26/2015 09:00:00 02/26/2015 23:59:59 CLS Preadmit FLO GONZALEZ L 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 [facility] CARD PALPITATIONS [id number] 11/27/2014 08:42:00 02/25/2015 00:01:00 DIS Outpatient FLO GONZALEZ L 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 [facility] CARD PALPITATIONS [id number] 12/09/2014 13:03:00 12/09/2014 14:48:00 DIS Emergency ISMAEL SOL APRN [facility] ER IRR HEART RATE [id number] 11/28/2014 21:04:00 11/28/2014 21:30:00 DIS Emergency ISMAEL SOL APRN [facility] ER TOOTH ACHE [id number] 09/18/2014 10:34:00 09/25/2014 11:11:00 DIS Outpatient JOSE FRIEDMAN MD [facility] REHAB LUMBAGO AND CERVICALGIA [id number] 09/19/2014 17:05:00 09/19/2014 18:13:00 DIS Emergency SUNITA BERNAL [facility] ER L SIDE FACIAL/DENTAL PAIN [id number] 08/11/2014 14:55:00 08/11/2014 23:59:59 CLS Outpatient FLO GONZALEZ L 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 [facility] RAD LBP [id number] 08/04/2014 15:27:00 08/04/2014 17:54:00 DIS Emergency ISMAEL SOL APRN [facility] ER FALL [id number] 06/05/2014 15:36:00 06/05/2014 16:31:00 DIS Emergency REZA CORONADO MD [facility] ER CHEST CONGESTION, COUGH [id number] 05/01/2014 01:24:00 05/01/2014 03:36:00 DIS Emergency MIGDALIA RAMON DO [facility] ER BACK PAIN [id number] 04/24/2014 08:45:00 04/24/2014 23:59:59 CLS Outpatient JENNIFER MAYES MD [facility] RAD RUQ PAIN,GOITER [id number] 03/22/2014 13:08:00 03/26/2014 11:55:00 DIS Inpatient JENNIFER MAYES MD [facility] WS LABOR [id number] 03/20/2014 21:50:00 03/21/2014 09:00:00 DIS Inpatient JENNIFER MAYES MD [facility] WS RIB PAIN [id number] 03/14/2014 00:56:00 03/14/2014 01:44:00 DIS Outpatient JENNIFER MAYES MD [facility] WSo PRESSURE [id number] 02/11/2014 21:51:00 02/11/2014 22:50:00 DIS Outpatient JENNIFER MAYES MD [facility] WSo C/O CRAMPING [id number] 11/13/2013 15:06:00 11/13/2013 18:10:00 DIS Outpatient JENNIFER MAYES MD [facility] WSo WATERY DISCHARGE SINCE 1400 [id number] 05/20/2013 08:48:00 05/20/2013 23:59:59 CLS Outpatient EVITA JONES, WOLF Carmona [facility] RAD LOW BACK PAIN,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,BLADDER DISFUNCT [id number] 04/30/2013 14:31:00 04/30/2013 16:18:00 DIS Emergency MEJIA JONES, YAW Fernando [facility] ER LOW BACK/RT HIP PAIN ABSCESS RIGHT THIGH [id number] 04/20/2013 11:49:00 04/20/2013 13:40:00 DIS Emergency JESSIE ROBERTS MD [facility] ER RAPID HEART BEAT, SOA [id number] 05/18/2015 11:12:00 Document Registration [id number] 05/18/2015 11:12:00 Document Registration [id number] 01/21/2015 00:32:00 Document Registration [id number] 09/25/2014 14:23:00 Document Registration [id number] 12/11/2012 16:00:00 Document Registration [id number] 12/08/2012 15:53:00 Document Registration [id number] 01/26/2012 09:17:00 Document Registration [id number] 01/18/2012 18:33:00 Document Registration [id number] 09/12/2011 15:20:00 Document Registration [id number] 06/27/2011 15:54:00 Document Registration [id number] 05/26/2010 22:10:00 Document Registration [id number] 05/06/2010 09:15:00 Document Registration [id number] 05/22/2019 16:50:00 05/22/2019 23:59:59 [facility] NICOLA MANUEL [facility] [id number] 03/11/2019 09:40:00 Document Registration [id number] 05/25/2018 11:20:00 Document Registration [id number] 05/17/2018 10:00:00 Document Registration [id number] 03/30/2018 13:05:00 Document Registration [id number] 02/21/2018 10:00:00 Document Registration
[2019-05-27 22:11] LABS: BASOPHILS % (AUTO) 0 % (0-10); EOSINOPHILS # (AUTO) 0.2 10^3/uL (0.0-0.3); EOSINOPHILS % (AUTO) 3 % (0-10); HEMATOCRIT 41 % (35-52); HEMOGLOBIN 13.4 G/DL (11.5-16.0); LYMPHOCYTES # (AUTO) 3.5 X 10^3 (1.0-4.0); LYMPHOCYTES % (AUTO) 45 % (12-44); MEAN CORPUSCULAR HEMOGLOBIN 29 PG (25-34); MEAN CORPUSCULAR HGB CONC 33 G/DL (32-36); MEAN CORPUSCULAR VOLUME 88 FL (80-99); MEAN PLATELET VOLUME 10.1 FL (7.4-10.4); MONOCYTES # (AUTO) 0.8 X 10^3 (0.0-1.0); MONOCYTES % (AUTO) 10 % (0-12); NEUTROPHILS # (AUTO) 3.3 X 10^3 (1.8-7.8); NEUTROPHILS % (AUTO) 42 % (42-75); PLATELET COUNT 184 10^3/uL (130-400); RED CELL DISTRIBUTION WIDTH 13.1 % (10.0-14.5); WHITE BLOOD COUNT 7.8 10^3/uL (4.3-11.0)
--- NOTE | 2019-05-27 22:12 | Diagnostic Imaging Report ---
PROCEDURE: CT urinary tract, rule out kidney stone, without contrast 05/27/2019.. TECHNIQUE: Multiple contiguous axial images were obtained through the abdomen and pelvis without the use of intravenous contrast. Auto Exposure Controls were utilized during the CT exam to meet ALARA standards for radiation dose reduction. INDICATION: Abdominal and back pain, chronic in nature. Fell and landed on back today which worsened her pain. History of endometriosis, PCOS. Evaluate for possible renal stones. Prior hysterectomy. Ponytail mar is wrapped around patient's shirt in the right lower abdomen per the technologist. FINDINGS: Nonopacified abdominal viscera limited due to lack of contrast. No gross abnormality is seen in the liver, the spleen, pancreas, adrenal glands or gallbladder. The gallbladder is contracted. There are findings of amyw-[id number] constipation. No focal inflammation about the bowel loops. Very minimal free fluid in pelvis, most likely physiologic. No hydronephrosis noted on the right with no nephrolithiasis on the right. The right ureter is very difficult to follow given adjacent bowel loops. There are multiple calcifications in the right aspect of the pelvis which are likely phleboliths. However, a ureteral stone cannot be excluded. The left kidney unremarkable. No hydronephrosis is seen. No nephrolithiasis. Again, the left ureter is difficult to follow. No obvious stone appreciated. Calcifications overlying the left psoas muscle are most likely outside of the ureter. There are multiple hyperdensities in the region of the cecum perhaps due to previous appendectomy correlate clinically. The appendix is not seen. The osseous structures are grossly unremarkable within the pelvis. Please see the separate CT lumbar spine for evaluation of the spine. Visualized lung bases unremarkable. IMPRESSION: 1. No acute process is seen in the abdomen or pelvis but limited due to lack of contrast. Hyperdensities along the course of the ureters bilaterally possibly phleboliths and/or prior surgical changes. A tiny distal stone would be impossible to completely exclude however no hydronephrosis is seen 2. Findings of constipation. 3. Incidental findings, as discussed above. Dictated by: Dictated on workstation # [id number]
--- NOTE | 2019-05-27 22:14 | Diagnostic Imaging Report ---
PROCEDURE: CT lumbar spine without contrast, 05/27/2019. TECHNIQUE: Multiple contiguous axial images were obtained through the lumbar spine without the use of intravenous contrast. Sagittal and coronal reformations were then performed. Auto Exposure Controls were utilized during the CT exam to meet ALARA standards for radiation dose reduction. INDICATION: Hysterectomy in the past. Chronic back pain. Fell landed on back today. Abdominal and pelvic pain with a history of endometriosis. PCOS. Abdominal and back pain COMPARISON: 03/04/2019 FINDINGS: There is normal height and alignment of the vertebral bodies. No acute fractures are seen. Soft tissues are not as well evaluated as on MRI but no significant stenosis is appreciated centrally. There may be mild disc bulges from the L3-L4 through the L5-S1 levels. IMPRESSION: 1. No acute process appreciated. No acute osseous abnormality appreciated. Dictated by: Dictated on workstation # [id number]
--- NOTE | 2019-05-27 22:18 | Diagnostic Imaging Report ---
INDICATION: Chronic back pain. Fell and landed on back today. History of endometriosis and PCOS. EXAMINATION: Abdominal series 05/27/2019. Frontal view of the chest with upright and supine imaging of the abdomen. COMPARISON: 03/24/2016 FINDINGS: Within the lungs there is no evidence for a focal infiltrate or effusion. No pneumothorax. The heart is unremarkable. Pulmonary vasculature is mildly prominent but stable from prior imaging. No free air is seen beneath the diaphragm. Scattered air stool throughout the colon is seen to the rectosigmoid. No dilated loops of bowel or free air appreciated. There is a nonspecific rounded peripherally hyperdense area overlying the right ilium. Correlate clinically. IMPRESSION: 1. No acute process in the chest. 2. Nonobstructive bowel gas pattern. 3. Nonspecific density right lower quadrant. Dictated by: Dictated on workstation # [id number]
[2019-05-27 22:27] LABS: ALANINE AMINOTRANSFERASE 10 U/L (0-55); ALBUMIN 4.2 GM/DL (3.2-4.5); ALKALINE PHOSPHATASE 53 U/L (40-136); AMYLASE 54 U/L (25-125); BILIRUBIN,TOTAL 0.1 MG/DL (0.1-1.0); BUN/CREATININE RATIO 20; CALCIUM 9.6 MG/DL (8.5-10.1); CARBON DIOXIDE 27 MMOL/L (21-32); CHLORIDE 107 MMOL/L (98-107); CREATININE SERUM 0.82 MG/DL (0.60-1.30); GFR ESTIMATED > 60; LIPASE 27 U/L (8-78); POTASSIUM 4.1 MMOL/L (3.6-5.0); SODIUM 142 MMOL/L (135-145); TOTAL PROTEIN 6.7 GM/DL (6.4-8.2)
[2019-05-27 22:35] LABS: ACETAMINOPHEN < 10 UG/ML (10-30); GLUCOSE 56 MG/DL (70-105)
[2019-05-27] MEDS ORDERED: KETOROLAC 30 MG/ML VIAL IVP STA (22:37)
[2019-05-27] MEDS ORDERED: DICY10CA12 PO (22:44)
[2019-05-27] MEDS ORDERED: HYOS0.1283 SL (22:44)
[2019-05-27] MEDS ORDERED: ONDA4TAB11 PO (22:44)
[2019-05-27] MEDS ORDERED: HYOSCYAMINE 0.125 MG (LEVSIN) TAB SL ONE (22:45)
[2019-05-27] MEDS ORDERED: DICYCLOMINE 10 MG (BENTYL) CAP PO SCH (22:45)
--- NOTE | 2019-05-27 22:45 | ED Abdominal Pain ---
General Chief Complaint: Abdominal/GI Problems Stated Complaint: ABD PAIN Nursing Triage Note: PT STATES HAVING HISTORY OF ENDOMETROSIS WITH A HYSTERECTOMY IN 2017. PT STATES HAVING LOWER ABD PAIN FOR 4 DAYS. PT STATES SHE FELL TODAY AND HURT HER BACK. PT DENIES LOC. PT DENIES URINARY SYMPTOMS. PT DENIES VAG DISCHARGE. Sepsis Screen: No Definite Risk Allergies and Home Medications Allergies Coded Allergies: Penicillins (Unverified Allergy, Mild, PT ABLE TO TAKE ANCEF, 03/26/14) diclofenac (Unverified Allergy, Unknown, 01/21/15) divalproex sodium (Verified Allergy, Unknown, 08/26/15) Home Medications Clonazepam 0.5 Mg Tablet, 0.5 MG PO TID, (Reported) Hydrocodone/Acetaminophen 1 Each Tablet, 1 EACH PO Q6H PRN for PAIN-MODERATE Prescribed by: ISMAEL SOL on 08/05/182228 Ibuprofen 800 Mg Tablet, 800 MG PO Q8H PRN for PAIN Prescribed by: ISMAEL SOL on 08/05/182228 Lamotrigine 150 Mg Tablet, 150 MG PO DAILY, (Reported) Methylprednisolone 4 Mg Tab.ds.pk, 4 MG PO UD Prescribed by: MIRANDA LOCO on 01/09/1850 Methylprednisolone 4 Mg Tab.ds.pk, 4 MG PO UD Prescribed by: ISMAEL SOL on 04/27/181905 Mirtazapine 30 Mg Tablet, 30 MG PO HS, (Reported) Ondansetron 4 Mg Tab.rapdis, 4 MG PO Q4H Prescribed by: MIRANDA LOCO on 01/09/1850 Orphenadrine Citrate 100 Mg Tablet.er, 100 MG PO BID FOR MUSCLE SPASMS Prescribed by: MIRANDA LOCO on 01/09/1850 Tramadol HCl 50 Mg Tablet, 50 MG PO Q4H PRN for PAIN-MODERATE TO SEVERE Prescribed by: ERIKA UNGER MD on 03/04/19 5909 Past Tuxsoqj-Jhgvfg-Jyjaeb Hx Patient Social History Alcohol Use: Denies Use Recreational Drug Use: No Type Used: Cigarettes 2nd Hand Smoke Exposure: Yes Recent Foreign Travel: No Contact w/Someone Who Travel: No Recent Infectious Disease Expo: No Recent Hopitalizations: No Physical Abuse: No Sexual Abuse: No Mistreated: No Fear: No Immunizations Up To Date Tetanus Booster (TDap): Less than 5yrs PED Vaccines UTD: Yes Date of Influenza Vaccine: Aug 30, 2017 Seasonal Allergies Seasonal Allergies: No Past Medical History Surgeries: Yes (LAPAROTOMY; HYST ; LSO; ) Abdominal, Adenoidectomy, Hysterectomy, Oophorectomy, Tonsillectomy Respiratory: Yes Asthma Cardiac: Yes (Hx. 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 Sexually Transmitted Disease: No HIV/AIDS: No Genitourinary: No Gastrointestinal: No Musculoskeletal: Yes Degenerate Disk Disease, Arthritis, Back Injury, Scoliosis, Chronic Back Pain Endocrine: No HEENT: No Cancer: No Psychosocial: Yes (EXTENSIVE PSYCH HISTORY) Anxiety, PTSD, Bipolar, Depression Integumentary: No Blood Disorders: No Adverse Reaction/Blood Tranf: No Family Medical History Family history: Hypertension (mother, MGM, and PGM) Heart disease (mother and father) History of - anemia (family Hx of blood transfusions) Infertile Kidney disease (MGM) No Pertinent Family Hx Physical Exam Vital Signs Vital Signs - First Documented 05/27/19 21:00 Temp 97.7 Pulse 102 Resp 18 B/P (MAP) 118/69 (85) Capillary Refill : Less Than 3 Seconds Height/Weight/BMI Height: 5'6.00" Weight: 130lbs. 0.0oz. 58.082508tr; 20.8 BMI Method:Stated Progress/Results/Core Measures Results/Orders Lab Results Laboratory Tests Test 05/27/19 20:51 05/27/19 21:57 Range/Units Urine Color YELLOW Urine Clarity VERY CLOUDY H Urine pH 8 5-9 Urine Specific [place] 1.015 L 1.016-1.022 Urine Protein NEGATIVE NEGATIVE Urine Glucose (UA) NEGATIVE NEGATIVE Urine Ketones NEGATIVE NEGATIVE Urine Nitrite NEGATIVE NEGATIVE Urine Bilirubin NEGATIVE NEGATIVE Urine Urobilinogen NORMAL NORMAL MG/DL Urine Leukocyte Esterase NEGATIVE NEGATIVE Urine RBC (Auto) NEGATIVE NEGATIVE Urine RBC NONE /HPF Urine WBC NONE /HPF Urine Squamous Epithelial Cells 0-2 /HPF Urine Crystals PRESENT H /LPF Urine Amorphous Sediment MOD [place]ER[place] PHOSPHATE H /LPF Urine Bacteria TRACE /HPF Urine Casts NONE /LPF Urine Mucus NEGATIVE /LPF Urine Culture Indicated NO Urine Opiates Screen NEGATIVE NEGATIVE Urine Oxycodone Screen NEGATIVE NEGATIVE Urine Methadone Screen NEGATIVE NEGATIVE Urine Propoxyphene Screen NEGATIVE NEGATIVE Urine Barbiturates Screen NEGATIVE NEGATIVE Ur Tricyclic Antidepressants Screen NEGATIVE NEGATIVE Urine Phencyclidine Screen NEGATIVE NEGATIVE Urine Amphetamines Screen NEGATIVE NEGATIVE Urine Methamphetamines Screen NEGATIVE NEGATIVE Urine Benzodiazepines Screen POSITIVE H NEGATIVE Urine Cocaine Screen NEGATIVE NEGATIVE Urine Cannabinoids Screen NEGATIVE NEGATIVE White Blood Count 7.8 4.3-11.0 10^3/uL Red Blood Count 4.60 4.35-5.85 10^6/uL Hemoglobin 13.4 11.5-16.0 G/DL Hematocrit 41 35-52 % Mean Corpuscular Volume 88 80-99 FL Mean Corpuscular Hemoglobin 29 25-34 PG Mean Corpuscular Hemoglobin Concent 33 32-36 G/DL Red Cell Distribution Width 13.1 10.0-14.5 % Platelet Count 184 130-400 10^3/uL Mean Platelet Volume 10.1 7.4-10.4 FL Neutrophils (%) (Auto) 42 42-75 % Lymphocytes (%) (Auto) 45 H 12-44 % Monocytes (%) (Auto) 10 0-12 % Eosinophils (%) (Auto) 3 0-10 % Basophils (%) (Auto) 0 0-10 % Neutrophils # (Auto) 3.3 1.8-7.8 X 10^3 Lymphocytes # (Auto) 3.5 1.0-4.0 X 10^3 Monocytes # (Auto) 0.8 0.0-1.0 X 10^3 Eosinophils # (Auto) 0.2 0.0-0.3 10^3/uL Basophils # (Auto) 0.0 0.0-0.1 10^3/uL Sodium Level 142 135-145 MMOL/L Potassium Level 4.1 3.6-5.0 MMOL/L Chloride Level 107 98-107 MMOL/L Carbon Dioxide Level 27 21-32 MMOL/L Anion Gap 8 5-14 MMOL/L Blood Urea Nitrogen 16 7-18 MG/DL Creatinine 0.82 0.60-1.30 MG/DL Estimat Glomerular Filtration Rate > 60 BUN/Creatinine Ratio 20 Glucose Level 56 *L 70-105 MG/DL Calcium Level 9.6 8.5-10.1 MG/DL Corrected Calcium 9.4 8.5-10.1 MG/DL Total Bilirubin 0.1 0.1-1.0 MG/DL Aspartate Amino Transf (AST/SGOT) 14 5-34 U/L Alanine Aminotransferase (ALT/SGPT) 10 0-55 U/L Alkaline Phosphatase 53 40-136 U/L Total Protein 6.7 6.4-8.2 GM/DL Albumin 4.2 3.2-4.5 GM/DL Amylase Level 54 25-125 U/L Lipase 27 8-78 U/L Acetaminophen Level < 10 L 10-30 UG/ML Serum Alcohol < 10 <10 MG/DL My Orders Orders - MIRANDA LOCO DO Ua Culture If Indicated (05/27/19 20:51) Ed Iv/Invasive Line Start (05/27/19 20:57) Ct Abd/Pelvis Wo(Kidney Stone) (05/27/19 20:57) Ct Lumbar Spine Wo (05/27/19 20:57) Acute Abd Series (05/27/19 20:57) Acetaminophen (05/27/19 20:57) Alcohol (05/27/19 20:57) Amylase (05/27/19 20:57) Cbc With Automated Diff (05/27/19 20:57) Comprehensive Metabolic Panel (05/27/19 20:57) Drug Screen Stat (Urine) (05/27/19 20:57) Lipase (05/27/19 20:57) Hyoscyamine Sl Tablet (Levsin Sl Tablet) (05/27/19 22:45) Toradol 30 Mg Ivp (05/27/19 22:37) Dicyclomine Capsule (Bentyl Capsule) (05/27/19 22:45) Vital Signs/I&O 05/27/19 21:00 Temp 97.7 Pulse 102 Resp 18 B/P (MAP) 118/69 (85) Blood Pressure Mean: 85 Departure Impression Primary Impression: Abdominal pain Additional Impressions: Constipation S/P FALL FROM STANDING Exacerbation of chronic back pain Disposition: 01 HOME, SELF-CARE Condition: Stable Departure-Patient Inst. Referrals: [facility] (PCP/Family) Primary Care Physician Patient Instructions: Acute Abdomen (Belly Pain), Adult (DC), Constipation, Adult (DC), Low Back Pain (DC), Preventing Falls in the Older Adult Add. Discharge Instructions: CLEAR LIQUIDS--NO FOOD UNTIL YOUR PAIN IS GONE AND YOUR STOOLS ARE CLEAR TAKE MIRALAX EVERY 2 HOURS UNTIL STOOLS ARE CLEAR, THEN TAKE ONCE A DAY CONTINUE CELEBREX AND TYLENOL NEEDED FOR PAIN --DO NOT TAKE IBUPROFEN IF YOU ARE TAKING CELEBREX FOLLOW UIP WITH YOUR DR IN 2-3 DAYS IF NO BETTER All discharge instructions reviewed with patient and/or family. Voiced understanding. Scripts Ondansetron (Ondansetron Odt) 4 Mg Tab.rapdis 4 MG PO Q4H for Nausea/Vomiting, #10 TAB Prov: MIRANDA LOCO DO 05/27/19 Dicyclomine HCl (Dicyclomine HCl) 10 Mg Capsule 10 MG PO Q6H for Abdominal Pain, #20 CAP Prov: MIRANDA LOCO DO 05/27/19 Hyoscyamine Sulfate (Levsin-Sl) 0.125 Mg Tab.subl 1-2 TAB SL Q4H for Abdominal Pain, #10 TAB Prov: MIRANDA LOCO DO 05/27/19 MIRANDA LOCO DO May 27, 2019 22:44
[2019-05-27 22:58] VITALS: BP 118/69
== END 2019-05-27 22:59 | disposition home or self-care (01) ==
LOC: ER 20:35 → EDUNIT# 20:35 → ER 22:59
DX: K59.00 Constipation, unspecified (principal); J45.909 Unspecified asthma, uncomplicated; M54.9 Dorsalgia, unspecified; G89.29 Other chronic pain; F43.10 Post-traumatic stress disorder, unspecified; F31.9 Bipolar disorder, unspecified; F41.9 Anxiety disorder, unspecified; Z82.49 Family history of ischemic heart disease and other diseases of the circulatory system; Z90.710 Acquired absence of both cervix and uterus; Z88.0 Allergy status to penicillin; Z88.5 Allergy status to narcotic agent; Z88.8 Allergy status to other drugs, medicaments and biological substances; Z77.22 Contact with and (suspected) exposure to environmental tobacco smoke (acute) (chronic); Z90.89 Acquired absence of other organs; W18.30XA Fall on same level, unspecified, initial encounter
CPT/HCPCS: 36415; 72131; 74022; 74176; 80053; 80306; 80320; 80329; 81000; 82150; 83690; 85025; 96374

== ENCOUNTER → 2019-05-29 | Outpatient (CLI) | payer OTHER ==
[~2019-05-29] MED LIST changes: +DICY10CA12 PO; +HYOS0.1283 SL; +ONDA4TAB11 PO
--- NOTE | 2019-05-29 14:39 | Diagnostic Imaging Report ---
INDICATION: Fall and back pain. TIME OF EXAM: 2:25 PM AP, lateral, both oblique as well as coned lumbosacral views were obtained. FINDINGS: Alignment is normal. Vertebral body heights and disc spaces are well-maintained. No fracture is identified. No spondylolysis or spondylolisthesis is detected. IMPRESSION: No acute bony abnormality is detected. Dictated by: Dictated on workstation # [id number]
== END ==
LOC: RAD 14:15
PROVIDERS: ATTEND Nurse Practitioner Family
DX: M54.5 Low back pain (principal); W19.XXXA Unspecified fall, initial encounter
CPT/HCPCS: 72110

== ENCOUNTER 2019-06-22 09:23 | Emergency (ER) | payer OTHER ==
[~2019-06-22] VITALS: Ht 167.6 cm; Wt 59.0 kg
[~2019-06-22 09:23] MED LIST changes: +RANI-613 PO; -RANI150T46 PO
--- NOTE | 2019-06-22 10:47 | NUR ---
Pt resting in bed. Informed pt ED has been busy and apologized for wait. Pt denies needs at this time. Will continue to monitor.
[2019-06-22] MEDS ORDERED: ORPHENADRINE 60 MG/2 ML (NORFLEX) AMP IM STA (11:28)
[2019-06-22] MEDS ORDERED: HYDROcodone/APAP 5 MG/325 MG (LORTAB) TAB PO ONE (11:30)
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
--- NOTE | 2019-06-22 12:03 | NUR ---
Pt reports feeling better and that "the meds are working." Domonique notified.
[2019-06-22] MEDS ORDERED: TRAM50TA2 PO (12:09)
[2019-06-22] MEDS ORDERED: ACHD5005 PO (12:24)
[2019-06-22 12:35] VITALS: BP 113/85
== END 2019-06-22 12:35 | disposition home or self-care (01) ==
LOC: EDUNIT# 09:23 → ER 09:24
DX: M54.16 Radiculopathy, lumbar region (principal); J45.909 Unspecified asthma, uncomplicated; F41.9 Anxiety disorder, unspecified; F43.10 Post-traumatic stress disorder, unspecified; F31.9 Bipolar disorder, unspecified; F17.210 Nicotine dependence, cigarettes, uncomplicated; Z88.0 Allergy status to penicillin; Z88.6 Allergy status to analgesic agent; Z88.8 Allergy status to other drugs, medicaments and biological substances; Z82.49 Family history of ischemic heart disease and other diseases of the circulatory system; Z90.710 Acquired absence of both cervix and uterus; Z90.89 Acquired absence of other organs
CPT/HCPCS: 99284

== ENCOUNTER → 2019-06-25 | Outpatient (CLI) | payer OTHER ==
--- NOTE | 2019-06-25 16:19 | Diagnostic Imaging Report ---
PROCEDURE: MRI lumbar spine. TECHNIQUE: Multiplanar, multisequence MRI of the lumbar spine was performed without contrast. INDICATION: Low back pain with bilateral leg pain and numbness. COMPARISON: Comparison is made with prior MRI of the lumbar spine from 08/11/2014. FINDINGS: Curvature and alignment of the lumbar spine is normal. The vertebral body heights are maintained. The marrow signal intensity is unremarkable. No geographic marrow lesion or fracture is seen. Fairly normal height and signal intensity through the lumbar discs is noted. The conus is unremarkable at the L1 level. T12-L1: Central canal and neuroforamina appear widely patent. L1-L2: The central canal and neuroforamina are widely patent. L2-L3: Central canal and neuroforamina are widely patent. L3-4: Central canal is patent. There is mild bilateral neuroforaminal narrowing. L4-L5: Central canal is widely patent. There is moderate bilateral neuroforaminal narrowing. L5-S1: Central canal is widely patent. Moderate bilateral neuroforaminal narrowing is detected. Paraspinous tissues are unremarkable. IMPRESSION: Stable MRI of the lumbar spine when compared with prior exam from 2013. No central canal stenosis is seen. Lower lumbar foraminal narrowing is again noted and similar to prior exam. Dictated by: Dictated on workstation # [id number]
== END ==
LOC: RAD 15:23
PROVIDERS: ATTEND Nurse Practitioner Family
DX: M48.07 Spinal stenosis, lumbosacral region (principal); M54.16 Radiculopathy, lumbar region
CPT/HCPCS: 72148

== ENCOUNTER → 2019-07-23 | Outpatient (CLI) | payer OTHER ==
--- NOTE | 2019-07-23 15:44 | Diagnostic Imaging Report ---
PROCEDURE: US Non-ob pelvis comp/trans. TECHNIQUE: Multiple real-time grayscale images were obtained of the pelvis in various projections endovaginally. Transabdominal imaging was also performed. INDICATION: Dyspareunia and chronic pelvic pain. Patient underwent hysterectomy in 2017 and left oophorectomy in 2018. FINDINGS: The uterus and left ovary are surgically absent. The right ovary is not visualized due to overlying bowel gas. No pelvic mass or fluid collection is identified. IMPRESSION: Status post hysterectomy and left oophorectomy. The right ovary is not visualized. No abnormality is detected. Dictated by: Dictated on workstation # [id number]
== END ==
LOC: RAD 14:39
PROVIDERS: ATTEND Obstetrics & Gynecology
DX: N94.10 Unspecified dyspareunia (principal); Z90.710 Acquired absence of both cervix and uterus; Z90.721 Acquired absence of ovaries, unilateral
CPT/HCPCS: 76830; 76856

== ENCOUNTER 2019-07-25 19:29 | Emergency (ER) | payer OTHER ==
[~2019-07-25] VITALS: Ht 167 cm; Wt 64.0 kg
[2019-07-25] MEDS ORDERED: CLIN300C11 PO (19:40)
--- NOTE | 2019-07-25 19:40 | ED EENT ---
History of Present Illness General Chief Complaint: Dental Problems/Pain Stated Complaint: DENTAL PAIN Source: patient Exam Limitations: no limitations History of Present Illness Date Seen by Provider: Jul 25, 2019 Time Seen by Provider: 19:37 Initial Comments left upper dental pain for a couple of days. No swelling. Has upper dentures except for the left wisdom tooth. That seems to be a tooth bothering her. She's had some leftover clindamycin and she states she's been taking. Timing/Duration: abrupt Severity: moderate Location: mouth Associated Symptoms: denies symptoms Allergies and Home Medications Allergies Coded Allergies: Penicillins (Unverified Allergy, Mild, PT ABLE TO TAKE ANCEF, 03/26/14) diclofenac (Unverified Allergy, Unknown, 01/21/15) divalproex sodium (Verified Allergy, Unknown, 08/26/15) Home Medications Clonazepam 0.5 Mg Tablet, 0.5 MG PO TID, (Reported) Dicyclomine HCl 10 Mg Capsule, 10 MG PO Q6H Prescribed by: MIRANDA LOCO on 05/27/19 2244 Hydrocodone Bit/Acetaminophen 1 Tab Tab, 1 EACH PO Q6H PRN for PAIN-MODERATE Prescribed by: SUNITA TIRADO on 06/22/19 1224 Hydrocodone/Acetaminophen 1 Each Tablet, 1 EACH PO Q6H PRN for PAIN-MODERATE Prescribed by: ISMAEL SOL on 08/05/182228 Hyoscyamine Sulfate 0.125 Mg Tab.subl, 1-2 TAB SL Q4H Prescribed by: MIRANDA LOCO on 05/27/19 224 Ibuprofen 800 Mg Tablet, 800 MG PO Q8H PRN for PAIN Prescribed by: ISMAEL SOL on 08/05/182228 Lamotrigine 150 Mg Tablet, 150 MG PO DAILY, (Reported) Methylprednisolone 4 Mg Tab.ds.pk, 4 MG PO UD Prescribed by: MIRANDA LOCO on 01/09/1850 Methylprednisolone 4 Mg Tab.ds.pk, 4 MG PO UD Prescribed by: ISMAEL SOL on 04/27/18 190 Mirtazapine 30 Mg Tablet, 30 MG PO HS, (Reported) Ondansetron 4 Mg Tab.rapdis, 4 MG PO Q4H Prescribed by: MIRANDA LOCO on 01/09/18 005 Ondansetron 4 Mg Tab.rapdis, 4 MG PO Q4H Prescribed by: MIRANDA LOCO on 05/27/19 2244 Orphenadrine Citrate 100 Mg Tablet.er, 100 MG PO BID FOR MUSCLE SPASMS Prescribed by: MIRANDA LOCO on 01/09/18 0051 Tramadol HCl 50 Mg Tablet, 50 MG PO Q4H PRN for PAIN-MODERATE TO SEVERE Prescribed by: ERIKA UNGER MD on 03/04/19 1649 Patient Home Medication List Home Medication List Reviewed: Yes Review of Systems Review of Systems Constitutional: see HPI Eyes: No Symptoms Reported Ears: No Symptoms Reported Nose: no symptoms reported Mouth: see HPI Throat: no symptoms reported Respiratory: no symptoms reported Cardiovascular: no symptoms reported Musculoskeletal: no symptoms reported Past Pmvzmtm-Xjuryd-Gfbxaz Hx Patient Social History Type Used: Cigarettes 2nd Hand Smoke Exposure: Yes Recent Foreign Travel: No Contact w/Someone Who Travel: No Recent Hopitalizations: No Immunizations Up To Date Tetanus Booster (TDap): Less than 5yrs PED Vaccines UTD: Yes Date of Influenza Vaccine: Aug 30, 2017 Seasonal Allergies Seasonal Allergies: No Past Medical History Surgeries: Yes (LAPAROTOMY; HYST ; LSO; ) Abdominal, Adenoidectomy, Hysterectomy, Oophorectomy, Tonsillectomy Respiratory: Yes Asthma Cardiac: Yes (Hx. 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 Sexually Transmitted Disease: No HIV/AIDS: No Genitourinary: No Gastrointestinal: No Musculoskeletal: Yes (chronic back pain) Degenerate Disk Disease, Arthritis, Back Injury, Scoliosis, Chronic Back Pain Endocrine: No HEENT: No Cancer: No Psychosocial: Yes (EXTENSIVE PSYCH HISTORY) Anxiety, PTSD, Bipolar, Depression Integumentary: No Blood Disorders: No Adverse Reaction/Blood Tranf: No Family Medical History Family history: Hypertension (mother, MGM, and PGM) Heart disease (mother and father) History of - anemia (family Hx of blood transfusions) Infertile Kidney disease (MGM) No Pertinent Family Hx Physical Exam Height, Weight, BMI Height: 5'6.00" Weight: 130lbs. 0.0oz. [id number]; 20.8 BMI Method:Stated General Appearance: WD/WN, no apparent distress Eyes: bilateral eye normal inspection, bilateral eye PERRL, bilateral eye EOMI Ears: bilateral ear auricle normal, bilateral ear canal normal, bilateral ear TM normal Mouth/Throat: other (the single remaining tooth on the maxilla is her area of pain. This is been packed with accident to hold her dentures in place and exam is limited. There is no surrounding abscess.) Neck: non-tender, full range of motion Respiratory: no respiratory distress, no accessory muscle use Neurologic/Psychiatric: alert, normal mood/affect, oriented x 3 Skin: normal color, warm/dry Progress/Results/Core Measures Results/Orders My Orders Orders - ISMAEL SOL APRN Lidocaine 2% Viscous 15 Ml (Xylocaine Vi (07/25/19 19:45) Departure Impression Primary Impression: Pain, dental Disposition: 01 HOME, SELF-CARE Condition: Stable Departure-Patient Inst. Decision time for Depature: 19:39 Referrals: NEWTON MONTEJO MD (PCP/Family) Primary Care Physician Patient Instructions: Dental Pain (DC) Add. Discharge Instructions: 1. Follow-up with your dentist All discharge instructions reviewed with patient and/or family. Voiced understanding. Scripts Clindamycin HCl (Clindamycin HCl) 300 Mg Capsule 300 MG PO TID, #21 CAP Prov: ISMAEL SOL APRN 07/25/19 ISMAEL SOL APRN Jul 25, 2019 19:40
[2019-07-25] MEDS ORDERED: LIDOCAINE 2% VISCOUS 15 ML UDC PO ONE (19:45)
[2019-07-25 19:50] VITALS: BP 136/92
--- NOTE | 2019-07-25 19:50 | NUR ---
INSTRUCTIONS GIVEN CONCERNING DIPPING THE 2X2'S ON THE LIDOCAINE AND PLACING ON AFFECTED TOOTH. INSTRUCTIONS GIVEN NOT TO FALL ASLEEP WITH 2X2'S IN HER MOUTH. PT VERBALIZED UNDERSTANDING.
== END 2019-07-25 19:50 | disposition home or self-care (01) ==
LOC: ER 19:29 → EDUNIT# 19:29 → ER 19:50
DX: K08.89 Other specified disorders of teeth and supporting structures (principal); J45.909 Unspecified asthma, uncomplicated; F41.9 Anxiety disorder, unspecified; F43.10 Post-traumatic stress disorder, unspecified; F31.9 Bipolar disorder, unspecified; Z88.0 Allergy status to penicillin; Z88.5 Allergy status to narcotic agent; Z88.8 Allergy status to other drugs, medicaments and biological substances; Z77.22 Contact with and (suspected) exposure to environmental tobacco smoke (acute) (chronic); Z90.710 Acquired absence of both cervix and uterus; Z90.89 Acquired absence of other organs
CPT/HCPCS: 99283

== ENCOUNTER 2019-07-26 18:34 | Emergency (ER) | payer OTHER ==
[~2019-07-26] VITALS: Ht 167 cm; Wt 63.6 kg
--- NOTE | 2019-07-26 19:03 | ED EENT ---
History of Present Illness General Chief Complaint: Dental Problems/Pain Stated Complaint: JAW PAIN Nursing Triage Note: PT TO TRIAGE WITH C/O LEFT JAW PAIN SINCE THIS AM. PT WAS IN ER YESTERDAY WITH LEFT TOOTH PAIN. PT STATES SHE TOOK IBUPROFEN, TYLENOL, TRAMADOL AND FLEXERIL FOR PAIN BUT IS UNRELIEVED. Source: patient Exam Limitations: no limitations History of Present Illness Date Seen by Provider: Jul 26, 2019 Time Seen by Provider: 19:00 Initial Comments To ER with left upper dental pain/left TMJ pain. Unable to fully open her mouth. She was seen here in the ER yesterday. She is on clindamycin already. She states she is already on Celebrex and has been on prednisone. She states she just needs something like hydrocodone to get her through the pain until she can see her dentist. K tracks history would suggest that opiate use is not dalal here. Timing/Duration: abrupt Severity: moderate Location: facial, dental Prearrival Treatment: no prearrival treatment Associated Symptoms: denies symptoms Allergies and Home Medications Allergies Coded Allergies: Penicillins (Unverified Allergy, Mild, PT ABLE TO TAKE ANCEF, 03/26/14) diclofenac (Unverified Allergy, Unknown, 01/21/15) divalproex sodium (Verified Allergy, Unknown, 08/26/15) Patient Home Medication List Home Medication List Reviewed: Yes Review of Systems Review of Systems Constitutional: see HPI Eyes: No Symptoms Reported Ears: No Symptoms Reported Nose: no symptoms reported Mouth: no symptoms reported Throat: no symptoms reported Respiratory: no symptoms reported Cardiovascular: no symptoms reported Musculoskeletal: no symptoms reported Past Uppunhp-Wxliiv-Xnhmuk Hx Patient Social History Alcohol Use: Rarely Uses Recreational Drug Use: No Smoking Status: Current Everyday Smoker Type Used: Cigarettes 2nd Hand Smoke Exposure: Yes Recent Foreign Travel: No Contact w/Someone Who Travel: No Recent Infectious Disease Expo: No Recent Hopitalizations: No Physical Abuse: No Sexual Abuse: No Mistreated: No Fear: No Immunizations Up To Date Tetanus Booster (TDap): Less than 5yrs PED Vaccines UTD: Yes Date of Influenza Vaccine: Aug 30, 2017 Seasonal Allergies Seasonal Allergies: No Past Medical History Surgeries: Yes (LAPAROTOMY; HYST ; LSO; ) Abdominal, Adenoidectomy, Hysterectomy, Oophorectomy, Tonsillectomy Respiratory: Yes Asthma Cardiac: Yes (Hx. 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 Sexually Transmitted Disease: No HIV/AIDS: No Genitourinary: No Gastrointestinal: No Musculoskeletal: Yes (chronic back pain) Degenerate Disk Disease, Arthritis, Back Injury, Scoliosis, Chronic Back Pain Endocrine: No HEENT: No Cancer: No Psychosocial: Yes (EXTENSIVE PSYCH HISTORY) Anxiety, PTSD, Bipolar, Depression Integumentary: No Blood Disorders: No Adverse Reaction/Blood Tranf: No Family Medical History Family history: Hypertension (mother, MGM, and PGM) Heart disease (mother and father) History of - anemia (family Hx of blood transfusions) Infertile Kidney disease (MGM) No Pertinent Family Hx Physical Exam Vital Signs Vital Signs - First Documented 07/26/19 18:48 Temp 36.9 Pulse 101 Resp 18 B/P (MAP) 141/93 (109) Pulse Ox 98 O2 Delivery Room Air Height, Weight, BMI Height: 5'6.00" Weight: 130lbs. 0.0oz. 58.629957ow; 22.00 BMI Method:Stated General Appearance: WD/WN, no apparent distress Eyes: bilateral eye normal inspection, bilateral eye PERRL, bilateral eye EOMI Ears: bilateral ear auricle normal, bilateral ear canal normal, bilateral ear TM normal Neck: non-tender, full range of motion Respiratory: no respiratory distress, no accessory muscle use Neurologic/Psychiatric: alert, normal mood/affect, oriented x 3 Skin: normal color, warm/dry Progress/Results/Core Measures Results/Orders Vital Signs/I&O 07/26/19 18:48 Temp 36.9 Pulse 101 Resp 18 B/P (MAP) 141/93 (109) Pulse Ox 98 O2 Delivery Room Air Blood Pressure Mean: 109 Departure Impression Primary Impression: Pain, dental Additional Impression: TMJPDS (temporomandibular joint pain dysfunction syndrome) Disposition: 01 HOME, SELF-CARE Condition: Stable Departure-Patient Inst. Decision time for Depature: 19:02 Referrals: NEWTON MONTEJO MD (PCP/Family) Primary Care Physician Patient Instructions: Dental Pain Add. Discharge Instructions: 1. Continue current medication regimen. Follow-up with your dentist next week. All discharge instructions reviewed with patient and/or family. Voiced understanding. ISMAEL SOL APRN 13, 2019 19:03
[2019-07-26 19:07] VITALS: BP 126/85
== END 2019-07-26 19:07 | disposition home or self-care (01) ==
LOC: EDUNIT# 18:34 → ER 18:34
DX: M26.622 Arthralgia of left temporomandibular joint (principal); J45.909 Unspecified asthma, uncomplicated; F41.9 Anxiety disorder, unspecified; F43.10 Post-traumatic stress disorder, unspecified; F31.9 Bipolar disorder, unspecified; F17.210 Nicotine dependence, cigarettes, uncomplicated; Z88.0 Allergy status to penicillin; Z88.5 Allergy status to narcotic agent; Z88.8 Allergy status to other drugs, medicaments and biological substances; Z90.710 Acquired absence of both cervix and uterus; Z90.89 Acquired absence of other organs; Z82.49 Family history of ischemic heart disease and other diseases of the circulatory system
CPT/HCPCS: 99282

== ENCOUNTER 2019-07-28 16:18 | Emergency (ER) | payer OTHER ==
[~2019-07-28] VITALS: Ht 170.1 cm; Wt 67.3 kg
[2019-07-28] MEDS ORDERED: ALPR1TAB7 (16:31)
[2019-07-28] MEDS ORDERED: ELAG150T (16:31)
--- NOTE | 2019-07-28 17:15 | ED General ---
General Chief Complaint: General Problems/Pain Stated Complaint: RETAINING FLUID Nursing Triage Note: COMPLAINS OF WT GAIN AND RETAINING FLUID OVER THE LAST TWO WEEKS. THINKS SHE HAS WENT FROM 135 TO 150 POUNDS. Nursing Sepsis Screen: No Definite Risk Source of Information: Patient History of Present Illness Date Seen by Provider: Jul 28, 2019 Time Seen by Provider: 16:45 Initial Comments PT ARRIVES VIA POV FROM HOME STATES "I'VE BEEN HAVING ALOT OF WEIGHT GAIN" "AND MY FACE IS SWOLLEN AND MY SKIN HURTS" STATES SHE HAS GAINED 15 LBS IN THE LAST 2 WEEKS STATES "AND MY BLOOD PRESSURE'S BEEN REALLY HIGH" --STATES IT HAS BEEN IN 130'S/80'S, AND NORMALLY IS 110'S SYSTOLIC C/O MILD SHORTNESS OF BREATH NO CHEST PAIN NO FEVER OR RECENT ILLNESS NO HISTORY OF SIMILAR PT HAS BEEN HERE 07/25 AND 07/26 FOR DENTAL PAIN, AND IS ON CLINDAMYCIN PT HAS MULTIPLE VISITS, MOST FOR VARIOUS PAIN COMPLAINTS PT STATES SHE DID HAVE STEROID SHOTS IN HER BACK ABOUT 2 WEEKS AGO, JUST PRIOR TO ONSET OF THESE SYMPTOMS NO NEW MEDICATIONS PRIOR TO ONSET OF SYMPTOMS PCP: [facility] Allergies and Home Medications Allergies Coded Allergies: Penicillins (Unverified Allergy, Mild, PT ABLE TO TAKE ANCEF, 03/26/14) diclofenac (Unverified Allergy, Unknown, 01/21/15) divalproex sodium (Verified Allergy, Unknown, 08/26/15) Patient Home Medication List Home Medication List Reviewed: Yes Review of Systems Review of Systems Constitutional: no symptoms reported EENTM: see HPI (FACE SWELLING) Respiratory: see HPI, short of breath Cardiovascular: No chest pain; edema; No palpitations, No syncope, No vascular heart diseas Gastrointestinal: no symptoms reported Genitourinary: no symptoms reported Musculoskeletal: see HPI Skin: No rash Psychiatric/Neurological: No Symptoms Reported; Denies Headache, Denies Numbness, Denies Paresthesia, Denies Tingling, Denies Weakness Hematologic/Lymphatic: No Symptoms Reported Immunological/Allergic: no symptoms reported Past Eclczwq-Nknxoy-Znfkwb Hx Past Med/Social Hx: Reviewed and Corrections made Patient Social History Alcohol Use: Occasionally Uses Recreational Drug Use: No Smoking Status: Current Everyday Smoker Type Used: Cigarettes 2nd Hand Smoke Exposure: Yes Recent Foreign Travel: No Contact w/Someone Who Travel: No Recent Infectious Disease Expo: No Recent Hopitalizations: No Immunizations Up To Date Tetanus Booster (TDap): Less than 5yrs PED Vaccines UTD: Yes Date of Influenza Vaccine: Aug 30, 2017 Seasonal Allergies Seasonal Allergies: No Past Medical History Surgeries: Yes (LAPAROTOMY; HYST ; LSO; ) Abdominal, Adenoidectomy, Hysterectomy, Oophorectomy, Tonsillectomy Respiratory: Yes Asthma Cardiac: Yes (Hx. 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 Sexually Transmitted Disease: No HIV/AIDS: No Genitourinary: No Gastrointestinal: No Musculoskeletal: Yes (chronic back pain) Degenerate Disk Disease, Arthritis, Back Injury, Scoliosis, Chronic Back Pain Endocrine: No HEENT: No Cancer: No Psychosocial: Yes (EXTENSIVE PSYCH HISTORY) Anxiety, PTSD, Bipolar, Depression Integumentary: No Blood Disorders: No Adverse Reaction/Blood Tranf: No Family Medical History Family history: Hypertension (mother, MGM, and PGM) Heart disease (mother and father) History of - anemia (family Hx of blood transfusions) Infertile Kidney disease (MGM) No Pertinent Family Hx Physical Exam Vital Signs Vital Signs - First Documented 07/28/19 16:27 Temp 37.1 Pulse 92 Resp 16 B/P (MAP) 150/92 (111) Pulse Ox 98 O2 Delivery Room Air Capillary Refill : Less Than 3 Seconds Height, Weight, BMI Height: 5'6.00" Weight: 130lbs. 0.0oz. 58.493212ck; 23.00 BMI Method:Stated General Appearance: No Apparent Distress, WD/WN, Other (REEKS OF CIGARETTES) HEENT: PERRL/EOMI, Pharynx Normal (NO SWELLING TO LIPS OR TONGUE), Other (NO OBVIOUS SWELLING TO FACE. ) Neck: Normal Inspection; No JVD Respiratory: Normal Breath Sounds, No Accessory Muscle Use, No Respiratory Distress Cardiovascular: Regular Rate, Rhythm, No JVD, No Murmur, Normal Peripheral Pulses, Other (NO OBVIOUS EDEMA TO HANDS OR FEET NOTED AT THIS TIME) Gastrointestinal: Non Tender, Soft Extremity: Normal Capillary Refill, Normal Inspection, Normal Range of Motion, Non Tender, No Calf Tenderness, No Pedal Edema Neurologic/Psychiatric: Alert, Oriented x3, No Motor/Sensory Deficits, Normal Mood/Affect, paper colorer II-XII Norm as Tested Skin: Normal Color, Warm/Dry, Tattoos/Piercings Progress/Results/Core Measures Suspected Sepsis Recent Fever Within 48 Hours: No Infection Criteria Present: None New/Unexplained Altered Menta: No Sepsis Screen: No Definite Risk SIRS Temperature: Pulse: 92 Respiratory Rate: 16 Laboratory Tests 07/28/19 17:02: White Blood Count 9.6 Blood Pressure 150 /92 Mean: 111 Laboratory Tests 07/28/19 17:02: Creatinine 0.80, INR Comment 0.9, Platelet Count 236, Total Bilirubin 0.2 Results/Orders Lab Results Laboratory Tests Test 07/28/19 17:02 Range/Units White Blood Count 9.6 4.3-11.0 10^3/uL Red Blood Count 4.38 4.35-5.85 10^6/uL Hemoglobin 12.9 11.5-16.0 G/DL Hematocrit 39 35-52 % Mean Corpuscular Volume 89 80-99 FL Mean Corpuscular Hemoglobin 30 25-34 PG Mean Corpuscular Hemoglobin Concent 33 32-36 G/DL Red Cell Distribution Width 13.9 10.0-14.5 % Platelet Count 236 130-400 10^3/uL Mean Platelet Volume 9.2 7.4-10.4 FL Neutrophils (%) (Auto) 51 42-75 % Lymphocytes (%) (Auto) 38 12-44 % Monocytes (%) (Auto) 10 0-12 % Eosinophils (%) (Auto) 2 0-10 % Basophils (%) (Auto) 0 0-10 % Neutrophils # (Auto) 4.9 1.8-7.8 X 10^3 Lymphocytes # (Auto) 3.6 1.0-4.0 X 10^3 Monocytes # (Auto) 1.0 0.0-1.0 X 10^3 Eosinophils # (Auto) 0.2 0.0-0.3 10^3/uL Basophils # (Auto) 0.0 0.0-0.1 10^3/uL Prothrombin Time 12.4 12.2-14.7 SEC INR Comment 0.9 0.8-1.4 Activated Partial Thromboplast Time 28 24-35 SEC Urine Color YELLOW Urine Clarity SLIGHTLY CLOUDY Urine pH 7 5-9 Urine Specific [place] 1.010 L 1.016-1.022 Urine Protein NEGATIVE NEGATIVE Urine Glucose (UA) NEGATIVE NEGATIVE Urine Ketones NEGATIVE NEGATIVE Urine Nitrite NEGATIVE NEGATIVE Urine Bilirubin NEGATIVE NEGATIVE Urine Urobilinogen NORMAL NORMAL MG/DL Urine Leukocyte Esterase NEGATIVE NEGATIVE Urine RBC (Auto) NEGATIVE NEGATIVE Urine RBC NONE /HPF Urine WBC NONE /HPF Urine Squamous Epithelial Cells 5-10 /HPF Urine Crystals PRESENT H /LPF Urine Amorphous Sediment MOD CATERINA PHOSPHATE H /LPF Urine Bacteria TRACE /HPF Urine Casts NONE /LPF Urine Mucus SMALL H /LPF Urine Culture Indicated NO Sodium Level 139 135-145 MMOL/L Potassium Level 3.9 3.6-5.0 MMOL/L Chloride Level 105 98-107 MMOL/L Carbon Dioxide Level 26 21-32 MMOL/L Anion Gap 8 5-14 MMOL/L Blood Urea Nitrogen 15 7-18 MG/DL Creatinine 0.80 0.60-1.30 MG/DL Estimat Glomerular Filtration Rate > 60 BUN/Creatinine Ratio 19 Glucose Level 85 70-105 MG/DL Calcium Level 9.0 8.5-10.1 MG/DL Corrected Calcium 8.9 8.5-10.1 MG/DL Magnesium Level 2.0 1.6-2.4 MG/DL Total Bilirubin 0.2 0.1-1.0 MG/DL Aspartate Amino Transf (AST/SGOT) 16 5-34 U/L Alanine Aminotransferase (ALT/SGPT) 16 0-55 U/L Alkaline Phosphatase 56 40-136 U/L B-Type Natriuretic Peptide 22.2 <100.0 PG/ML Total Protein 6.6 6.4-8.2 GM/DL Albumin 4.1 3.2-4.5 GM/DL Serum Test, Qualitative NEGATIVE NEGATIVE Urine Opiates Screen NEGATIVE NEGATIVE Urine Oxycodone Screen NEGATIVE NEGATIVE Urine Methadone Screen NEGATIVE NEGATIVE Urine Propoxyphene Screen NEGATIVE NEGATIVE Urine Barbiturates Screen NEGATIVE NEGATIVE Ur Tricyclic Antidepressants Screen NEGATIVE NEGATIVE Urine Phencyclidine Screen NEGATIVE NEGATIVE Urine Amphetamines Screen NEGATIVE NEGATIVE Urine Methamphetamines Screen NEGATIVE NEGATIVE Urine Benzodiazepines Screen POSITIVE H NEGATIVE Urine Cocaine Screen NEGATIVE NEGATIVE Urine Cannabinoids Screen NEGATIVE NEGATIVE My Orders Orders - MIRANDA LOCO DO Ed Iv/Invasive Line Start (07/28/19 16:45) Ekg Tracing (07/28/19 16:45) Monitor-Rhythm Ecg Trace Only (07/28/19 16:45) BNP (07/28/19 16:45) Cbc With Automated Diff (07/28/19 16:45) Comprehensive Metabolic Panel (07/28/19 16:45) Drug Screen Stat (Urine) (07/28/19 16:45) Hcg,Qualitative Serum (07/28/19 16:45) Magnesium (07/28/19 16:45) Protime With Inr (07/28/19 16:45) Partial Thromboplastin Time (07/28/19 16:45) Ua Culture If Indicated (07/28/19 16:45) Vital Signs/I&O 07/28/19 16:27 Temp 37.1 Pulse 92 Resp 16 B/P (MAP) 150/92 (111) Pulse Ox 98 O2 Delivery Room Air Capillary Refill : Less Than 3 Seconds Blood Pressure Mean: 111 ECG Initial ECG Impression Date: Jul 28, 2019 Initial ECG Impression Time: 16:56 Initial ECG Rate: 93 Initial ECG Rhythm: Normal Sinus Departure Impression Primary Impression: Fluid retention Additional Impression: RECENT STEROID INJECTION Disposition: 01 HOME, SELF-CARE Condition: Stable Departure-Patient Inst. Referrals: NEWTON MONTEJO MD (PCP/Family) Primary Care Physician Patient Instructions: Swelling Add. Discharge Instructions: DECREASE YOUR SODIUM INTAKE FOLLOW UP WITH YOUR DR IN 3-4 DAYS IF NO BETTER All discharge instructions reviewed with patient and/or family. Voiced understanding. Scripts Potassium Chloride (Potassium Chloride) 20 Meq Tab.er.prt 20 MEQ PO DAILY, #3 TAB Prov: CLAUDY,IMRANDA K DO 07/28/19 Furosemide (Lasix) 40 Mg Tablet 40 MG PO DAILY, #3 TAB Prov: CLAUDY,MIRANDA K DO 07/28/19 CLAUDYARSENA K DO Jul 28, 2019 17:15
[2019-07-28 17:16] LABS: BASOPHILS % (AUTO) 0 % (0-10); EOSINOPHILS # (AUTO) 0.2 10^3/uL (0.0-0.3); EOSINOPHILS % (AUTO) 2 % (0-10); HEMATOCRIT 39 % (35-52); HEMOGLOBIN 12.9 G/DL (11.5-16.0); LYMPHOCYTES # (AUTO) 3.6 X 10^3 (1.0-4.0); LYMPHOCYTES % (AUTO) 38 % (12-44); MEAN CORPUSCULAR HEMOGLOBIN 30 PG (25-34); MEAN CORPUSCULAR HGB CONC 33 G/DL (32-36); MEAN CORPUSCULAR VOLUME 89 FL (80-99); MEAN PLATELET VOLUME 9.2 FL (7.4-10.4); MONOCYTES % (AUTO) 10 % (0-12); NEUTROPHILS # (AUTO) 4.9 X 10^3 (1.8-7.8); NEUTROPHILS % (AUTO) 51 % (42-75); PLATELET COUNT 236 10^3/uL (130-400); RED CELL DISTRIBUTION WIDTH 13.9 % (10.0-14.5); WHITE BLOOD COUNT 9.6 10^3/uL (4.3-11.0)
[2019-07-28 17:17] LABS: BILIRUBIN,URINE NEGATIVE (NEGATIVE); CLARITY,URINE SLIGHTLY CLOUDY; COLOR,URINE YELLOW; GLUCOSE, URINE (UA) NEGATIVE (NEGATIVE); KETONES,URINE NEGATIVE (NEGATIVE); LEUKOCYTE ESTERASE ,URINE NEGATIVE (NEGATIVE); NITRITE,URINE NEGATIVE (NEGATIVE); PH,URINE 7 (5-9); PROTEIN,URINE NEGATIVE (NEGATIVE); UROBILINOGEN,URINE NORMAL (NORMAL)
[2019-07-28 17:24] LABS: AMORPHOUS SEDIMENT,UR MOD AMOR PHOSPHATE /LPF; BACTERIA,URINE TRACE /HPF
[2019-07-28 17:27] LABS: INR 0.9 (0.8-1.4); PROTHROMBIN TIME PATIENT 12.4 SEC (12.2-14.7)
[2019-07-28 17:28] LABS: AMPHETAMINE SCREEN, URINE NEGATIVE (NEGATIVE); BARBITURATE SCREEN URINE NEGATIVE (NEGATIVE); BENZODIAZEPINES SCREEN URINE POSITIVE (NEGATIVE); CANNABINOID SCREEN, URINE NEGATIVE (NEGATIVE); COCAINE SCREEN URINE NEGATIVE (NEGATIVE); METHADONE STAT NEGATIVE (NEGATIVE); METHAMPHETAMINE SCREEN URINE S NEGATIVE (NEGATIVE); OPIATE SCREEN URINE NEGATIVE (NEGATIVE); OXYCODONE STAT NEGATIVE (NEGATIVE); PROPOXYPHENE STAT NEGATIVE (NEGATIVE); TRICYCLIC ANTIDEPRESSANTS SCRE NEGATIVE (NEGATIVE)
[2019-07-28 17:40] LABS: ALANINE AMINOTRANSFERASE 16 U/L (0-55); ALBUMIN 4.1 GM/DL (3.2-4.5); ALKALINE PHOSPHATASE 56 U/L (40-136); BILIRUBIN,TOTAL 0.2 MG/DL (0.1-1.0); BUN/CREATININE RATIO 19; CARBON DIOXIDE 26 MMOL/L (21-32); CHLORIDE 105 MMOL/L (98-107); GFR ESTIMATED > 60; GLUCOSE 85 MG/DL (70-105); POTASSIUM 3.9 MMOL/L (3.6-5.0); SODIUM 139 MMOL/L (135-145); TOTAL PROTEIN 6.6 GM/DL (6.4-8.2)
[2019-07-28] MEDS ORDERED: POTA20TA15 PO (17:54)
[2019-07-28] MEDS ORDERED: FURO-124 PO (17:54)
[2019-07-28 17:59] VITALS: BP 150/92
== END 2019-07-28 18:00 | disposition home or self-care (01) ==
LOC: EDUNIT# 16:18 → ER 16:19
DX: R60.9 Edema, unspecified (principal); J45.909 Unspecified asthma, uncomplicated; F41.9 Anxiety disorder, unspecified; F43.10 Post-traumatic stress disorder, unspecified; F31.9 Bipolar disorder, unspecified; F17.210 Nicotine dependence, cigarettes, uncomplicated; Z90.89 Acquired absence of other organs; Z90.710 Acquired absence of both cervix and uterus; Z88.0 Allergy status to penicillin; Z88.5 Allergy status to narcotic agent; Z88.8 Allergy status to other drugs, medicaments and biological substances; Z82.49 Family history of ischemic heart disease and other diseases of the circulatory system
CPT/HCPCS: 36415; 80053; 80306; 81000; 83735; 83880; 84703; 85025; 85610; 85730; 93005

== ENCOUNTER 2019-10-30 21:51 | Emergency (ER) | payer OTHER ==
[~2019-10-30] VITALS: Ht 167.7 cm; Wt 68.0 kg
[~2019-10-30 21:51] MED LIST changes: +ALPR1TAB7; +ELAG150T; +FURO-124 PO; +POTA20TA15 PO
[2019-10-30] MEDS ORDERED: LACTATED RINGERS 1,000 ML IV ONE ×2 (21:58→23:45)
[2019-10-30 22:07] LABS: BASOPHILS % (AUTO) 0 % (0-10); EOSINOPHILS # (AUTO) 0.2 10^3/uL (0.0-0.3); EOSINOPHILS % (AUTO) 2 % (0-10); HEMATOCRIT 42 % (35-52); HEMOGLOBIN 13.9 G/DL (11.5-16.0); LYMPHOCYTES # (AUTO) 5.3 X 10^3 (1.0-4.0); LYMPHOCYTES % (AUTO) 46 % (12-44); MEAN CORPUSCULAR HEMOGLOBIN 30 PG (25-34); MEAN CORPUSCULAR HGB CONC 33 G/DL (32-36); MEAN CORPUSCULAR VOLUME 89 FL (80-99); MEAN PLATELET VOLUME 10.2 FL (7.4-10.4); MONOCYTES # (AUTO) 1.2 X 10^3 (0.0-1.0); MONOCYTES % (AUTO) 11 % (0-12); NEUTROPHILS # (AUTO) 4.9 X 10^3 (1.8-7.8); NEUTROPHILS % (AUTO) 42 % (42-75); PLATELET COUNT 266 10^3/uL (130-400); RED CELL DISTRIBUTION WIDTH 12.5 % (10.0-14.5); WHITE BLOOD COUNT 11.6 10^3/uL (4.3-11.0)
[2019-10-30 22:23] LABS: ALANINE AMINOTRANSFERASE 14 U/L (0-55); ALBUMIN 4.7 GM/DL (3.2-4.5); ALKALINE PHOSPHATASE 59 U/L (40-136); BILIRUBIN,TOTAL 0.3 MG/DL (0.1-1.0); BUN/CREATININE RATIO 15; CALCIUM 9.4 MG/DL (8.5-10.1); CARBON DIOXIDE 11 MMOL/L (21-32); CHLORIDE 106 MMOL/L (98-107); CREATINE KINASE 168 U/L (29-168); CREATININE SERUM 0.85 MG/DL (0.60-1.30); GFR ESTIMATED > 60; GLUCOSE 115 MG/DL (70-105); MAGNESIUM 2.2 MG/DL (1.6-2.4); POTASSIUM 3.5 MMOL/L (3.6-5.0); SODIUM 140 MMOL/L (135-145); TOTAL PROTEIN 7.5 GM/DL (6.4-8.2)
[2019-10-30 22:36] LABS: BILIRUBIN,URINE NEGATIVE (NEGATIVE); CLARITY,URINE CLOUDY; COLOR,URINE YELLOW; GLUCOSE, URINE (UA) NEGATIVE (NEGATIVE); KETONES,URINE NEGATIVE (NEGATIVE); LEUKOCYTE ESTERASE ,URINE NEGATIVE (NEGATIVE); NITRITE,URINE NEGATIVE (NEGATIVE); PH,URINE 7.5 (5-9); PROTEIN,URINE 1+ (NEGATIVE)
[2019-10-30 22:38] LABS: ACETAMINOPHEN < 10 UG/ML (10-30)
[2019-10-30 22:43] LABS: CREATINE KINASE MB 1.2 NG/ML (<6.6)
[2019-10-30 22:45] LABS: INR 1.1 (0.8-1.4); PROTHROMBIN TIME PATIENT 14.1 SEC (12.2-14.7)
[2019-10-30 22:46] LABS: AMORPHOUS SEDIMENT,UR LARGE AMOR PHOSPHATE /LPF; BACTERIA,URINE NEGATIVE /HPF; RBC,URINE 0-2 /HPF
[2019-10-30 22:49] LABS: AMPHETAMINE SCREEN, URINE NEGATIVE (NEGATIVE); BARBITURATE SCREEN URINE NEGATIVE (NEGATIVE); BENZODIAZEPINES SCREEN URINE POSITIVE (NEGATIVE); CANNABINOID SCREEN, URINE NEGATIVE (NEGATIVE); COCAINE SCREEN URINE NEGATIVE (NEGATIVE); METHADONE STAT NEGATIVE (NEGATIVE); METHAMPHETAMINE SCREEN URINE S NEGATIVE (NEGATIVE); OPIATE SCREEN URINE NEGATIVE (NEGATIVE); OXYCODONE STAT NEGATIVE (NEGATIVE); PROPOXYPHENE STAT NEGATIVE (NEGATIVE); TRICYCLIC ANTIDEPRESSANTS SCRE NEGATIVE (NEGATIVE)
--- NOTE | 2019-10-30 23:43 | NUR ---
C COLLAR REMOVED BY DR. LOCO AT THIS TIME.
[2019-10-30] MEDS ORDERED: cefTRIAXone FOR IV USE 1,000 MG in WATER (STERILE) FOR INJECTION 10 ML IV ONE (23:45)
[2019-10-31] MEDS ORDERED: HYDR-700 PO (00:08)
[2019-10-31] MEDS ORDERED: RX-HYDROXYZINE PAMOATE 25 MG CAP #4 PO STA (00:08)
[2019-10-31] MEDS ORDERED: CEFP500T4 PO (00:08)
--- NOTE | 2019-10-31 00:08 | ED General ---
General Chief Complaint: Neurological Problems Stated Complaint: SEIZURE Nursing Triage Note: TO ED [facility]IA [facility] FROM HOME IN [facility]. EMS STATE WITNESSED SEIZURE BY WHO STATES IT LASTED "2-5 MINUTES" AND PT FELL FACE FIRST INTO TV. PT STATES SHE ONLY REMEMBERS THE RIDE HERE AND NOT BEFORE. PT C/O DIZZNESS, PAIN TO TOP OF HEAD, SOA, DENIES NAUSEA AND VISION IS NORMAL. Nursing Sepsis Screen: No Definite Risk Allergies and Home Medications Allergies Coded Allergies: Penicillins (Unverified Allergy, Mild, PT ABLE TO TAKE ANCEF, 03/26/14) diclofenac (Unverified Allergy, Unknown, 01/21/15) divalproex sodium (Verified Allergy, Unknown, 08/26/15) Home Medications Furosemide 40 Mg Tablet, 40 MG PO DAILY Prescribed by: MIRANDA LOCO on 07/28/191753 Potassium Chloride 20 Meq Tab.er.prt, 20 MEQ PO DAILY Prescribed by: MIRANDA LOCO on 07/28/191753 Past Bdcpdqj-Snyboi-Fxevbz Hx Patient Social History Alcohol Use: Denies Use Recreational Drug Use: No Type Used: Cigarettes 2nd Hand Smoke Exposure: Yes Recent Foreign Travel: No Contact w/Someone Who Travel: No Recent Infectious Disease Expo: No Recent Hopitalizations: No Physical Abuse: No Sexual Abuse: No Mistreated: No Fear: No Immunizations Up To Date Tetanus Booster (TDap): Less than 5yrs PED Vaccines UTD: Yes Date of Influenza Vaccine: Aug 30, 2017 Seasonal Allergies Seasonal Allergies: No Past Medical History Surgeries: Yes (LAPAROTOMY; HYST ; LSO; ) Abdominal, Adenoidectomy, Appendectomy, Hysterectomy, Oophorectomy, Tonsille ctomy Respiratory: Yes Asthma Cardiac: Yes (Hx. 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 Sexually Transmitted Disease: No HIV/AIDS: No Genitourinary: No Gastrointestinal: No Musculoskeletal: Yes (chronic back pain) Degenerate Disk Disease, Arthritis, Back Injury, Scoliosis, Chronic Back Pain Endocrine: No HEENT: No Cancer: No Psychosocial: Yes (EXTENSIVE PSYCH HISTORY) Anxiety, PTSD, Bipolar, Depression Integumentary: No Blood Disorders: No Adverse Reaction/Blood Tranf: No Family Medical History Family history: Hypertension (mother, MGM, and PGM) Heart disease (mother and father) History of - anemia (family Hx of blood transfusions) Infertile Kidney disease (MGM) No Pertinent Family Hx Physical Exam Vital Signs Vital Signs - First Documented 10/30/19 21:52 Temp 36.7 Pulse 126 Resp 20 B/P (MAP) 122/74 (90) O2 Delivery Room Air Capillary Refill : Less Than 3 Seconds Height, Weight, BMI Height: 5'6.00" Weight: 130lbs. 0.0oz. [id number]; 24.00 BMI Method:Stated Progress/Results/Core Measures Suspected Sepsis Recent Fever Within 48 Hours: No Infection Criteria Present: None New/Unexplained Altered Menta: No Sepsis Screen: No Definite Risk SIRS Temperature: Pulse: 126 Respiratory Rate: 20 Laboratory Tests 10/30/19 21:55: White Blood Count 11.6H Blood Pressure 122 /74 Mean: 90 Laboratory Tests 10/30/19 21:55: Creatinine 0.85, Platelet Count 266, Total Bilirubin 0.3 10/30/19 22:12: INR Comment 1.1 Results/Orders Lab Results Laboratory Tests Test 10/30/19 21:55 10/30/19 22:12 10/30/19 22:25 Range/Units White Blood Count 11.6 H 4.3-11.0 10^3/uL Red Blood Count 4.68 4.35-5.85 10^6/uL Hemoglobin 13.9 11.5-16.0 G/DL Hematocrit 42 35-52 % Mean Corpuscular Volume 89 80-99 FL Mean Corpuscular Hemoglobin 30 25-34 PG Mean Corpuscular Hemoglobin Concent 33 32-36 G/DL Red Cell Distribution Width 12.5 10.0-14.5 % Platelet Count 266 130-400 10^3/uL Mean Platelet Volume 10.2 7.4-10.4 FL Neutrophils (%) (Auto) 42 42-75 % Lymphocytes (%) (Auto) 46 H 12-44 % Monocytes (%) (Auto) 11 0-12 % Eosinophils (%) (Auto) 2 0-10 % Basophils (%) (Auto) 0 0-10 % Neutrophils # (Auto) 4.9 1.8-7.8 X 10^3 Lymphocytes # (Auto) 5.3 H 1.0-4.0 X 10^3 Monocytes # (Auto) 1.2 H 0.0-1.0 X 10^3 Eosinophils # (Auto) 0.2 0.0-0.3 10^3/uL Basophils # (Auto) 0.0 0.0-0.1 10^3/uL Sodium Level 140 135-145 MMOL/L Potassium Level 3.5 L 3.6-5.0 MMOL/L Chloride Level 106 98-107 MMOL/L Carbon Dioxide Level 11 L 21-32 MMOL/L Anion Gap 23 H 5-14 MMOL/L Blood Urea Nitrogen 13 7-18 MG/DL Creatinine 0.85 0.60-1.30 MG/DL Estimat Glomerular Filtration Rate > 60 BUN/Creatinine Ratio 15 Glucose Level 115 H 70-105 MG/DL Calcium Level 9.4 8.5-10.1 MG/DL Corrected Calcium 8.5-10.1 MG/DL Magnesium Level 2.2 1.6-2.4 MG/DL Total Bilirubin 0.3 0.1-1.0 MG/DL Aspartate Amino Transf (AST/SGOT) 15 5-34 U/L Alanine Aminotransferase (ALT/SGPT) 14 0-55 U/L Alkaline Phosphatase 59 40-136 U/L Total Creatine Kinase 168 29-168 U/L Creatine Kinase MB 1.2 <6.6 NG/ML Myoglobin 117.5 H 10.0-92.0 NG/ML Total Protein 7.5 6.4-8.2 GM/DL Albumin 4.7 H 3.2-4.5 GM/DL TSH [place] Testing 3.30 0.35-4.94 UIU/ML Acetaminophen Level < 10 L 10-30 UG/ML Serum Alcohol < 10 <10 MG/DL Monoscreen NEGATIVE NEGATIVE Prothrombin Time 14.1 12.2-14.7 SEC INR Comment 1.1 0.8-1.4 Activated Partial Thromboplast Time 20 L 24-35 SEC Urine Color YELLOW Urine Clarity CLOUDY Urine pH 7.5 5-9 Urine Specific [place] 1.020 1.016-1.022 Urine Protein 1+ H NEGATIVE Urine Glucose (UA) NEGATIVE NEGATIVE Urine Ketones NEGATIVE NEGATIVE Urine Nitrite NEGATIVE NEGATIVE Urine Bilirubin NEGATIVE NEGATIVE Urine Urobilinogen 0.2 < = 1.0 MG/DL Urine Leukocyte Esterase NEGATIVE NEGATIVE Urine RBC (Auto) 1+ H NEGATIVE Urine RBC 0-2 /HPF Urine WBC NONE /HPF Urine Crystals PRESENT H /LPF Urine Amorphous Sediment LARGE CATERINA PHOSPHATE H /LPF Urine Bacteria NEGATIVE /HPF Urine Casts NONE /LPF Urine Mucus NEGATIVE /LPF Urine Culture Indicated NO Urine Opiates Screen NEGATIVE NEGATIVE Urine Oxycodone Screen NEGATIVE NEGATIVE Urine Methadone Screen NEGATIVE NEGATIVE Urine Propoxyphene Screen NEGATIVE NEGATIVE Urine Barbiturates Screen NEGATIVE NEGATIVE Ur Tricyclic Antidepressants Screen NEGATIVE NEGATIVE Urine Phencyclidine Screen M NEGATIVE Urine Amphetamines Screen NEGATIVE NEGATIVE Urine Methamphetamines Screen NEGATIVE NEGATIVE Urine Benzodiazepines Screen POSITIVE H NEGATIVE Urine Cocaine Screen NEGATIVE NEGATIVE Urine Cannabinoids Screen NEGATIVE NEGATIVE My Orders Orders - MIRANDA LOCO DO Ct Head/Face/Cervical Wo (10/30/19 21:58) Ekg Tracing (10/30/19 21:58) Monitor-Rhythm Ecg Trace Only (10/30/19 21:58) Straight Cath For Spec.-Adult (10/30/19 21:58) Chest 1 View, Ap/Pa Only (10/30/19 21:58) Acetaminophen (10/30/19 21:58) Alcohol (10/30/19 21:58) Cbc With Automated Diff (10/30/19 21:58) Comprehensive Metabolic Panel (10/30/19 21:58) Creatine Kinase (10/30/19 21:58) Creatine Kinase Mb (10/30/19 21:58) Drug Screen Stat (Urine) (10/30/19 21:58) Magnesium (10/30/19 21:58) Protime With Inr (10/30/19 21:58) Partial Thromboplastin Time (10/30/19 21:58) Thyroid Analyzer (10/30/19 21:58) Ua Culture If Indicated (10/30/19 21:58) Myoglobin Serum (10/30/19 21:58) Ed Iv/Invasive Line Start (10/30/19 21:58) Lactated Ringers (Lr 1000 Ml Iv Solution (10/30/19 21:58) Monotest (10/30/19 22:50) Ceftriaxone For Iv Use (Rocephin For I (10/30/19 23:45) Ed Iv/Invasive Line Start (10/30/19 23:45) Lactated Ringers (Lr 1000 Ml Iv Solution (10/30/19 23:45) Medications Given in ED Current Medications Medications Dose Ordered Sig/Antonia Route Start Time Stop Time Status Last Admin Dose Admin Lactated Ringer's 1,000 ml @ 0 mls/hr Q0M ONCE IV 10/30/19 21:58 10/30/19 22:02 DC 10/30/19 22:17 999 MLS/HR Vital Signs/I&O 10/30/19 21:52 Temp 36.7 Pulse 126 Resp 20 B/P (MAP) 122/74 (90) O2 Delivery Room Air Capillary Refill : Less Than 3 Seconds Blood Pressure Mean: 90 Departure Impression Primary Impression: REPORTED SEIZURE LIKE ACTIVITY Additional Impressions: Nasal fracture Head injury without concussion or intracranial hemorrhage SUSPCTED BENZODIAZEPINE WITHDRAWL Prescription drug abuse Disposition: HOME, SELF-CARE Condition: Improved Departure-Patient Inst. Referrals: DAKSHA MARTINEZ MD, RICK D MD (PCP/Family) Primary Care Physician Patient Instructions: Concussion, Adult (DC), Drug Abuse and Drug Addiction (DC), Drug Withdrawal (DC), Minor Head Injury (DC), Nose Fracture (DC), Seizures, Adult (DC) Add. Discharge Instructions: ICE TO SORE AREAS AT 20 MINUTE INTERVALS TAKE YOUR MEDICATIONS EXACTLY PRESCRIBED DO NOT RUB OR BLOW NOSE FOLLOW UP WITH DR. MARTINEZ IN A FEW DAYS FOR FURTHER CARE OF NASAL FRACTURE FOLLOW UP WITH DR. MONTEJO THIS WEEK FOR FURTHER CARE All discharge instructions reviewed with patient and/or family. Voiced understanding. Scripts Hydroxyzine HCl (Hydroxyzine HCl) 25 Mg Tablet 25-50 MG PO Q6H for Anxiety, #15 TAB Prov: MIRANDA LOCO DO 10/31/19 Cefprozil (Cefprozil) 500 Mg Tablet 500 MG PO BID, #20 TAB Prov: MIRANDA LOCO DO 10/31/19 MIRANDA LOCO DO Oct 31, 2019 00:08
[2019-10-31] MEDS ORDERED: RX-HYDROXYZINE PAMOATE 25 MG CAP #4 PO ONE (00:17)
[2019-10-31 01:03] VITALS: BP 112/72
--- NOTE | 2019-10-31 05:56 | Diagnostic Imaging Report ---
INDICATION: Fall. Seizure. COMPARISON: 05/27/2019 FINDINGS: Single frontal view of the chest demonstrates normal heart size and pulmonary vascularity. The lungs are well aerated and clear. No large pleural effusion or pneumothorax is seen. The visualized osseous structures show no acute abnormalities. IMPRESSION: 1. No acute cardiopulmonary process. Dictated by: Dictated on workstation # [id number]
--- NOTE | 2019-10-31 09:03 | Diagnostic Imaging Report ---
PROCEDURE: CT head, face, and cervical spine without contrast. TECHNIQUE: Multiple contiguous axial images were obtained through the head, neck, and facial bones without the use of intravenous contrast. Sagittal and coronal reformations through the cervical spine and facial bones were also performed. Auto Exposure Controls were utilized during the CT exam to meet ALARA standards for radiation dose reduction. INDICATION: Fall. Seizure. COMPARISON: 08/31/2015 FINDINGS: CT head: Ventricles and cortical sulci are normal in size and contour. There is no midline shift or mass-effect. No acute intra-axial hemorrhage is seen. There are no abnormal areas of increased or decreased density to suggest acute hemorrhage or edema. No extra-axial masses or collections are present. The bony calvarium is intact. CT FACIAL BONES: Multiple small bony fragments are identified at the apex of the nasal bones consistent with nondisplaced fractures. There is also subtle nondisplaced fracture through the base of the left nasal bone (image 39, series 3). There is mild leftward deviation and hooking of the nasal septum. This is likely on a developmental or congenital basis. No acute fracture of the nasal septum is seen. Paranasal sinuses show mild scattered mucosal thickening. There is some debris within the right maxillary sinus. There is, however no evidence of acute fracture of the paranasal sinuses. Note is also made of complete opacification of bilateral frontal sinuses. There is no fracture of the orbits. The globes are symmetric. No unexpected radiopaque foreign bodies are seen. Bilateral zygomatic arches are intact. There is no acute fracture or dislocation of the mandible. Multiple dental caries are noted. There is no fracture or dislocation of the bilateral pterygoid plates. Overlying soft tissue structures are unremarkable as well. CT cervical spine: Evaluation of static alignment shows reversal of normal lordotic curvature. This, however may be related positioning, as well as spasm. There is no significant anterolisthesis or retrolisthesis. There is no evidence of jumped facets. Vertebral body heights are maintained. There is no evidence of acute fracture. No bony fragments are seen within the spinal canal. No significant degenerative changes are identified. Pre and paravertebral soft tissue structures are unremarkable. Included portions of lung apices show no additional acute abnormalities. IMPRESSION: 1. No acute intracranial abnormality. No CT evidence of mass, acute infarct or intracranial hemorrhage. 2. Findings consistent with acute nondisplaced fractures of the nasal bones as described above. This was not discussed in the [facility] report. Discrepancy will be relayed to the ordering physician. 3. Scattered paranasal sinus disease with some debris in the right maxillary sinus. Correlation with underlying chronic and possibly superimposed acute sinusitis is recommended. 4. No acute fracture or dislocation cervical spine. 5. Multiple dental caries. Dental consultation is recommended. Report was faxed/called to Dr. [facility] by rafael at 9:03 am. VERONICA Reilly, was also notified. Dictated by: Dictated on workstation # [id number]
== END 2019-10-31 01:07 | disposition home or self-care (01) ==
LOC: EDUNIT# 21:51 → ER 21:52
DX: S09.90XA Unspecified injury of head, initial encounter (principal); S02.2XXA Fracture of nasal bones, initial encounter for closed fracture; R29.818 Other symptoms and signs involving the nervous system; J45.909 Unspecified asthma, uncomplicated; F19.10 Other psychoactive substance abuse, uncomplicated; F41.9 Anxiety disorder, unspecified; F43.10 Post-traumatic stress disorder, unspecified; F31.9 Bipolar disorder, unspecified; Z88.0 Allergy status to penicillin; Z88.8 Allergy status to other drugs, medicaments and biological substances; Z77.22 Contact with and (suspected) exposure to environmental tobacco smoke (acute) (chronic); Z90.89 Acquired absence of other organs; Z90.49 Acquired absence of other specified parts of digestive tract; Z90.710 Acquired absence of both cervix and uterus; Z82.49 Family history of ischemic heart disease and other diseases of the circulatory system; W18.39XA Other fall on same level, initial encounter; W22.8XXA Striking against or struck by other objects, initial encounter
CPT/HCPCS: 36415; 51701; 70450; 70486; 71045; 72125; 80053; 80306; 80320; 80329; 81000; 82550; 82553; 83735; 83874; 84443; 85025; 85610; 85730; 86308; 93041; 96361; 96374

== ENCOUNTER 2019-11-16 15:04 | Emergency (ER) | payer OTHER ==
[~2019-11-16] VITALS: Ht 167 cm; Wt 68.1 kg
[~2019-11-16 15:04] MED LIST changes: +CEFP500T4 PO; +HYDR-700 PO
--- NOTE | 2019-11-16 15:37 | ED Head Injury ---
General Chief Complaint: Head/Cervical Problems Stated Complaint: HEADACHE Nursing Triage Note: PT PRESENTS TO ED WITH COMPLAINTS OF HEAD AND NECK PAIN SINCE 10/30/19 AFTER HAVING A SEIZURE RELATED TO WITHDRAWLS TO BENZOS. PT REPORTS GENERALIZED FATIGUE, CONFUSION, AND MEMORY ISSUES WELL. Source: patient, family Exam Limitations: no limitations History of Present Illness Date Seen by Provider: Nov 16, 2019 Time Seen by Provider: 15:33 Initial Comments This 29-year-old white female presents with persistent headache following seizure in which she sustained closed head injury in october. They patient was having withdrawal from benzodiazepines. The patient has subsequently had persistent headaches with associated fatigue confusion and poor memory. Patient denies fever or chills. She's had no cough, chest pain, vomiting or diarrhea, dysuria or flank pain. Allergies and Home Medications Allergies Coded Allergies: Penicillins (Unverified Allergy, Mild, PT ABLE TO TAKE ANCEF, 03/26/14) diclofenac (Unverified Allergy, Unknown, 01/21/15) divalproex sodium (Verified Allergy, Unknown, 08/26/15) Home Medications Cefprozil 500 Mg Tablet, 500 MG PO BID Prescribed by: MIRANDA LOCO on 10/31/197 Furosemide 40 Mg Tablet, 40 MG PO DAILY Prescribed by: MIRANDA LOCO on 07/28/191753 Hydroxyzine HCl 25 Mg Tablet, 25-50 MG PO Q6H Prescribed by: MIRANDA LOCO on 10/31/197 Potassium Chloride 20 Meq Tab.er.prt, 20 MEQ PO DAILY Prescribed by: MIRANDA LOCO on 07/28/191753 Patient Home Medication List Home Medication List Reviewed: Yes Review of Systems Review of Systems Constitutional: No chills, No fever; malaise, other (headache) Eyes: Denies Blurred Vision Ears, Nose, Mouth, Throat: no symptoms reported; denies epistaxis Respiratory: no symptoms reported Cardiovascular: no symptoms reported Gastrointestinal: No abdominal pain, No diarrhea, No nausea, No vomiting Genitourinary: no symptoms reported Musculoskeletal: no symptoms reported Skin: no symptoms reported Psychiatric/Neurological: See HPI, Cognitive Dysfunction, Headache, Other (the patient's had no seizures since october.) Endocrine: No Symptoms Reported Hematologic/Lymphatic: No Symptoms Reported Past Ojsgyrp-Itgems-Hnxckh Hx Past Med/Social Hx: Reviewed Nursing Past Med/Soc Hx Patient Social History Alcohol Use: Denies Use Recreational Drug Use: No Smoking Status: Current Everyday Smoker Type Used: Cigarettes 2nd Hand Smoke Exposure: Yes Recent Foreign Travel: No Contact w/Someone Who Travel: No Recent Infectious Disease Expo: No Recent Hopitalizations: No Immunizations Up To Date Tetanus Booster (TDap): Less than 5yrs PED Vaccines UTD: Yes Date of Influenza Vaccine: Aug 30, 2017 Seasonal Allergies Seasonal Allergies: No Past Medical History Surgeries: Yes (LAPAROTOMY; HYST ; LSO; ) Abdominal, Adenoidectomy, Appendectomy, Hysterectomy, Oophorectomy, Tonsillectomy Respiratory: Yes Asthma Cardiac: Yes (Hx. 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 Sexually Transmitted Disease: No HIV/AIDS: No Genitourinary: No Gastrointestinal: No Musculoskeletal: Yes (chronic back pain) Degenerate Disk Disease, Arthritis, Back Injury, Scoliosis, Chronic Back Pain Endocrine: No HEENT: No Cancer: No Psychosocial: Yes (EXTENSIVE PSYCH HISTORY) Anxiety, PTSD, Bipolar, Depression Integumentary: No Blood Disorders: No Adverse Reaction/Blood Tranf: No Family Medical History Family history: Hypertension (mother, MGM, and PGM) Heart disease (mother and father) History of - anemia (family Hx of blood transfusions) Infertile Kidney disease (MGM) No Pertinent Family Hx Physical Exam Vital Signs Vital Signs - First Documented 11/16/19 15:21 Temp 36.7 Pulse 116 Resp 20 B/P (MAP) 138/91 (107) Pulse Ox 98 Capillary Refill : Less Than 3 Seconds Height, Weight, BMI Height: 5'6.00" Weight: 130lbs. 0.0oz. 58.776258nd; 24.00 BMI Method:Stated General Appearance: WD/WN, no apparent distress HEENT: normal ENT inspection Neck: full range of motion, supple Cardiovascular: regular rate, rhythm Respiratory: no respiratory distress Psychiatric: alert, oriented x 3 Crainal Nerves: normal hearing, normal speech Motor/Sensory: no motor deficit, no sensory deficit Progress/Results/Core Measures Results/Orders My Orders Orders - ERIKA UNGER MD Hydrocodone/Apap 5/325 Tablet (Lortab 5 (11/16/19 15:45) Ct Head Wo (11/16/19 15:32) Medications Given in ED Current Medications Medications Dose Ordered Sig/Antonia Route Start Time Stop Time Status Last Admin Dose Admin Acetaminophen/ Hydrocodone Bitart 2 tab ONCE ONCE PO 11/16/19 15:45 11/16/19 15:46 DC 11/16/19 15:48 2 TAB Vital Signs/I&O 11/16/19 15:21 Temp 36.7 Pulse 116 Resp 20 B/P (MAP) 138/91 (107) Pulse Ox 98 Blood Pressure Mean: 107 Progress Progress Note : Time: 16:[address] of the head was unremarkable. The patient's headache abated with 2 Vicodin orally. I discussed findings with patient. We settled on the course of Ultram for any further headaches. I asked she follow up with her caregiver on Monday for further evaluation. Departure Impression Primary Impression: Headache Qualified Codes: R51 - Headache Disposition: HOME, SELF-CARE Condition: Improved Departure-Patient Inst. Decision time for Depature: 16:46 Referrals: NEWTON MONTEJO MD (PCP/Family) Primary Care Physician Patient Instructions: HEADACHE Add. Discharge Instructions: Ultram for future headache. Follow-up with your doctor on Monday for further evaluation. Return of any problems or questions All discharge instructions reviewed with patient and/or family. Voiced understanding. Scripts Tramadol HCl (Ultram) 50 Mg Tablet 100 MG PO Q6H for Pain, #20 TAB Prov: ERIKA UNGER MD 11/16/19 ERIKA UNGER MD Nov 16, 2019 15:37
[2019-11-16] MEDS ORDERED: HYDROcodone/APAP 5 MG/325 MG (LORTAB) TAB PO ONE (15:45)
--- NOTE | 2019-11-16 16:15 | Diagnostic Imaging Report ---
PROCEDURE: CT head without contrast. TECHNIQUE: Multiple contiguous axial images were obtained through the brain without the use of intravenous contrast. Auto Exposure Controls were utilized during the CT exam to meet ALARA standards for radiation dose reduction. INDICATION: Three weeks status post seizure. Persistent headache since then. FINDINGS: Ventricles are normal in size, shape and position. There is no acute parenchymal hemorrhage, edema or mass. There is no extra-axial mass or hemorrhage. There is no change from 10/30/2019. IMPRESSION: No acute abnormality is seen. Dictated by: Dictated on workstation # [id number]
[2019-11-16] MEDS ORDERED: TRAM-42 PO (16:50)
[2019-11-16 17:03] VITALS: BP 123/87
== END 2019-11-16 17:03 | disposition home or self-care (01) ==
LOC: EDUNIT# 15:04 → ER 15:04
DX: R51 Headache (principal); J45.909 Unspecified asthma, uncomplicated; F41.9 Anxiety disorder, unspecified; F43.10 Post-traumatic stress disorder, unspecified; F31.9 Bipolar disorder, unspecified; F17.210 Nicotine dependence, cigarettes, uncomplicated; Z88.0 Allergy status to penicillin; Z88.5 Allergy status to narcotic agent; Z88.8 Allergy status to other drugs, medicaments and biological substances; Z90.49 Acquired absence of other specified parts of digestive tract; Z90.710 Acquired absence of both cervix and uterus; Z90.89 Acquired absence of other organs; Z82.49 Family history of ischemic heart disease and other diseases of the circulatory system
CPT/HCPCS: 70450

== ENCOUNTER → 2020-01-13 | Outpatient (CLI) | payer OTHER ==
[~2020-01-13] MED LIST changes: -ARIP5TAB20; +ARIP5TAB57; -LIDO15SO2 MM; +LIDO20SO23 MM; +METH-313 PO
--- NOTE | 2020-01-13 13:39 | Diagnostic Imaging Report ---
EXAMINATION: Paranasal sinuses at 11:54 a.m. INDICATION: Dizziness, headaches. FINDINGS: There are no prior paranasal sinus exams available for comparison. The CT facial bone exam of 10/30/2019 did note nondisplaced fractures involving the nasal bone. The CT exam also revealed complete opacification of the frontal sinuses and mild mucosal thickening of the other sinuses. There was also some fluid and debris within the right maxillary antrum. On this exam, the nondisplaced fractures of the nasal bone seen on the previous study are not well appreciated. The orbital rims and zygomatic arches appear to be intact. The frontal sinuses do appear to be better aerated. There may still be some residual mucosal thickening present, however. The other sinuses are generally clear and well aerated. As noted on the prior exam, the nasal septum is deviated to the left. IMPRESSION: 1. The frontal sinuses do seem better aerated than on the prior exam, but there may still be some mucosal thickening present. If further imaging is desired, then a CT sinus exam would be recommended. 2. The other paranasal sinuses are generally clear. 3. The nondisplaced fracture of the nasal bone seen previously is not well appreciated on this exam. There is no acute bony abnormality noted. Dictated by: Dictated on workstation # [id number]
== END ==
LOC: RAD 11:32
PROVIDERS: ATTEND Nurse Practitioner Family
DX: R51 Headache (principal); R42 Dizziness and giddiness
CPT/HCPCS: 70220

== ENCOUNTER 2020-01-14 14:00 | Emergency (ER) | payer OTHER ==
[~2020-01-14] VITALS: Ht 167 cm; Wt 68.1 kg
[~2020-01-14 14:00] MED LIST changes: -METH-313 PO
[2020-01-14] MEDS ORDERED: METH-313 PO (14:20)
[2020-01-14] MEDS ORDERED: PRD20T PO (14:20)
--- NOTE | 2020-01-14 14:21 | ED Back Pain ---
General Chief Complaint: Back Problems Stated Complaint: BACK PAIN Source of Information: Patient Exam Limitations: No Limitations History of Present Illness Date Seen by Provider: Jan 14, 2020 Time Seen by Provider: 14:19 Initial Comments To ER with a 1-2 day history of worsening low back pain that radiates down the left thigh. She's had an MRI here late last year, no fevers chills or injury. She sees pain management later this week and is already established with them. Location: Lumbar Spine, Paraspinous Muscles Timing/Duration: 1-2 Days Severity: Moderate Pain/Injury Location: Back Method of Injury: Unknown Associated Symptoms: lower back pain Allergies and Home Medications Allergies Coded Allergies: Penicillins (Unverified Allergy, Mild, PT ABLE TO TAKE ANCEF, 03/26/14) diclofenac (Unverified Allergy, Unknown, 01/21/15) divalproex sodium (Verified Allergy, Unknown, 08/26/15) Home Medications Cefprozil 500 Mg Tablet, 500 MG PO BID Prescribed by: MIRANDA LOCO on 10/31/197 Furosemide 40 Mg Tablet, 40 MG PO DAILY Prescribed by: MIRANDA LOCO on 07/28/191753 Hydroxyzine HCl 25 Mg Tablet, 25-50 MG PO Q6H Prescribed by: MIRANDA LOCO on 10/31/197 Methocarbamol 750 Mg Tablet, 750 MG PO Q4H PRN for PAIN-MODERATE (5-7) Prescribed by: ISMAEL SOL on 01/14/20 1420 Potassium Chloride 20 Meq Tab.er.prt, 20 MEQ PO DAILY Prescribed by: MIRANDA LOCO on 07/28/19 175 Prednisone 20 Mg Tab, 40 MG PO DAILY Prescribed by: ISMAEL SOL on 01/14/20 1420 Tramadol HCl 50 Mg Tablet, 100 MG PO Q6H Prescribed by: ERIKA UNGER MD on 11/16/19 1650 Patient Home Medication List Home Medication List Reviewed: Yes Review of Systems Constitutional: see HPI EENTM: see HPI Respiratory: no symptoms reported Cardiovascular: no symptoms reported Genitourinary: no symptoms reported Musculoskeletal: see HPI, back pain Skin: no symptoms reported Psychiatric/Neurological: No Symptoms Reported Past Zjzgwwj-Zgaiwq-Aydrhy Hx Patient Social History Type Used: Cigarettes 2nd Hand Smoke Exposure: Yes Recent Hopitalizations: No Immunizations Up To Date Tetanus Booster (TDap): Less than 5yrs PED Vaccines UTD: Yes Date of Influenza Vaccine: Aug 30, 2017 Seasonal Allergies Seasonal Allergies: No Past Medical History Surgeries: Yes (LAPAROTOMY; HYST ; LSO; ) Abdominal, Adenoidectomy, Appendectomy, Hysterectomy, Oophorectomy, Tonsillectomy Respiratory: Yes Asthma Cardiac: Yes (Hx. 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 Sexually Transmitted Disease: No HIV/AIDS: No Genitourinary: No Gastrointestinal: No Musculoskeletal: Yes (chronic back pain) Degenerate Disk Disease, Arthritis, Back Injury, Scoliosis, Chronic Back Pain Endocrine: No HEENT: No Cancer: No Psychosocial: Yes (EXTENSIVE PSYCH HISTORY) Anxiety, PTSD, Bipolar, Depression Integumentary: No Blood Disorders: No Adverse Reaction/Blood Tranf: No Family Medical History Family history: Hypertension (mother, MGM, and PGM) Heart disease (mother and father) History of - anemia (family Hx of blood transfusions) Infertile Kidney disease (MGM) No Pertinent Family Hx Physical Exam Vital Signs Vital Signs - First Documented 01/14/20 14:09 Temp 36.8 Pulse 108 Resp 18 B/P (MAP) 125/79 (94) Pulse Ox 99 O2 Delivery Room Air Capillary Refill : Height, Weight, BMI Height: 5'6.00" Weight: 130lbs. 0.0oz. 58.805809kv; 24.00 BMI Method:Stated General Appearance: No Apparent Distress, WD/WN, Other (inventory [place] 1 to the bathroom without antalgic gait) HEENT: PERRL/EOMI, TMs Normal Neck: Full Range of Motion, Normal Inspection Respiratory: Normal Breath Sounds, No Accessory Muscle Use, No Respiratory Distress Gastrointestinal: Normal Bowel Sounds, Non Tender, Soft Extremity: Normal Capillary Refill, Normal Inspection Neurologic/Psychiatric: Alert, Oriented x3 Skin: Normal Color, Warm/Dry Progress/Results/Core Measures Results/Orders Vital Signs/I&O 01/14/20 14:09 Temp 36.8 Pulse 108 Resp 18 B/P (MAP) 125/79 (94) Pulse Ox 99 O2 Delivery Room Air Departure Impression Primary Impression: Low back pain Qualified Codes: M54.5 - Low back pain Disposition: HOME, SELF-CARE Condition: Stable Departure-Patient Inst. Decision time for Depature: 14:19 Referrals: NEWTON MONTEJO MD (PCP/Family) Primary Care Physician Patient Instructions: Low Back Pain (DC), Chronic Pain (DC) Add. Discharge Instructions: 1. Medication as directed 2. Follow-up with her doctor next week 3. All discharge instructions reviewed with patient and/or family. Voiced understanding. Scripts Methocarbamol (Robaxin-750) 750 Mg Tablet 750 MG PO Q4H PRN for PAIN-MODERATE (5-7), #10 TAB Prov: ISMAEL SOL APRN 01/14/20 Prednisone (Prednisone) 20 Mg Tab 40 MG PO DAILY, #6 TAB 0 Refills Prov: ISMAEL SOL APRN 01/14/20 Work/School Note: Work Release Form Date Seen in the Emergency Department: Jan 14, 2020 Return to Work: Jan 15, 2020 ISMAEL SOL APRN Jan 14, 2020 14:20
[2020-01-14 14:37] VITALS: BP 125/79
== END 2020-01-14 14:39 | disposition home or self-care (01) ==
LOC: EDUNIT# 14:00 → ER 14:01
DX: M54.5 Low back pain (principal); J45.909 Unspecified asthma, uncomplicated; F41.9 Anxiety disorder, unspecified; Z88.0 Allergy status to penicillin; Z88.8 Allergy status to other drugs, medicaments and biological substances; Z77.22 Contact with and (suspected) exposure to environmental tobacco smoke (acute) (chronic); Z79.52 Long term (current) use of systemic steroids
CPT/HCPCS: 99281

== ENCOUNTER 2020-02-01 19:01 | Emergency (ER) | payer OTHER ==
[~2020-02-01] VITALS: Ht 165 cm; Wt 70.0 kg
[~2020-02-01 19:01] MED LIST changes: +METH-313 PO
--- NOTE | 2020-02-01 19:12 | ED Cough/URI ---
General Chief Complaint: Respiratory Problems Stated Complaint: FEVER/SOA SORE THROAT DIZZINESS Source: patient Exam Limitations: no limitations History of Present Illness Date Seen by Provider: Feb 01, 2020 Time Seen by Provider: 19:10 Initial Comments To ER with reports of fever sore throat dizziness shortness of breath. This is been ongoing for about a week, she saw her primary care provider Dr. Montejo at the onset of this, negative strep negative flu. She was then tested for coronavirus and tested negative. She was given an inhaler but it didn't help much. Her symptoms persist. Timing/Duration: week Severity/Quality: no cough Modifying Factors: Improves With Coughing Associated Symptoms: fever/chills, shortness of breath Allergies and Home Medications Allergies Coded Allergies: Penicillins (Unverified Allergy, Mild, PT ABLE TO TAKE ANCEF, 03/26/14) diclofenac (Unverified Allergy, Unknown, 01/21/15) divalproex sodium (Verified Allergy, Unknown, 08/26/15) Home Medications Cefprozil 500 Mg Tablet, 500 MG PO BID Prescribed by: MIRANDA LOCO on 10/31/197 Furosemide 40 Mg Tablet, 40 MG PO DAILY Prescribed by: MIRANDA LOCO on 07/28/191753 Hydroxyzine HCl 25 Mg Tablet, 25-50 MG PO Q6H Prescribed by: MIRANDA LOCO on 10/31/197 Methocarbamol 750 Mg Tablet, 750 MG PO Q4H PRN for PAIN-MODERATE (5-7) Prescribed by: ISMAEL SOL on 01/14/20 142 Potassium Chloride 20 Meq Tab.er.prt, 20 MEQ PO DAILY Prescribed by: MIRANDA LOCO on 07/28/191753 Prednisone 20 Mg Tab, 40 MG PO DAILY Prescribed by: ISMAEL SOL on 01/14/20 1420 Tramadol HCl 50 Mg Tablet, 100 MG PO Q6H Prescribed by: ERIKA UNGER MD on 11/16/19 1650 Patient Home Medication List Home Medication List Reviewed: Yes Review of Systems Review of Systems Constitutional: see HPI, fever EENTM: see HPI Respiratory: see HPI; No cough; short of breath Cardiovascular: no symptoms reported Genitourinary: no symptoms reported Musculoskeletal: no symptoms reported Skin: no symptoms reported Psychiatric/Neurological: No Symptoms Reported Hematologic/Lymphatic: No Symptoms Reported Past Ifyyjth-Qalyfe-Hfztxg Hx Patient Social History Drug of Choice: BENZODIAZEPINE ABUSE Type Used: Cigarettes 2nd Hand Smoke Exposure: Yes Recent Foreign Travel: No Contact w/Someone Who Travel: No Recent Hopitalizations: No Immunizations Up To Date Tetanus Booster (TDap): Less than 5yrs PED Vaccines UTD: Yes Date of Influenza Vaccine: Aug 30, 2017 Seasonal Allergies Seasonal Allergies: No Past Medical History Surgeries: Yes (LAPAROTOMY; HYST ; LSO; ) Abdominal, Adenoidectomy, Appendectomy, Hysterectomy, Oophorectomy, Tonsillectomy Respiratory: Yes Asthma Cardiac: Yes (Hx. 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 Sexually Transmitted Disease: No HIV/AIDS: No Genitourinary: No Gastrointestinal: No Musculoskeletal: Yes (chronic back pain; MULITPLE VARIOUS PAIN COMPLAINTS) Degenerate Disk Disease, Arthritis, Back Injury, Scoliosis, Chronic Back Pain Endocrine: No HEENT: Yes (DENTURES) Cancer: No Psychosocial: Yes (EXTENSIVE PSYCH HISTORY) Anxiety, PTSD, Bipolar, Depression Integumentary: No Blood Disorders: No Adverse Reaction/Blood Tranf: No Family Medical History Family history: Hypertension (mother, MGM, and PGM) Heart disease (mother and father) History of - anemia (family Hx of blood transfusions) Infertile Kidney disease (MGM) No Pertinent Family Hx Physical Exam Vital Signs - First Documented 02/01/20 19:20 Temp 36.6 Pulse 120 Resp 16 B/P (MAP) 139/93 (108) Capillary Refill : Height: 5'6.00" Weight: 130lbs. 0.0oz. 58.190337ih; 24.00 BMI Method:Stated General Appearance: WD/WN, no apparent distress Eyes: Bilateral Eye Normal Inspection, Bilateral Eye PERRL, Bilateral Eye EOMI HEENT: PERRL/EOMI, normal ENT inspection Respiratory: no respiratory distress, no accessory muscle use Cardiovascular: tachycardia (115) Gastrointestinal: normal bowel sounds, non tender, soft Extremities: normal range of motion, non-tender Neurologic/Psychiatric: alert, normal mood/affect, oriented x 3 Skin: normal color, warm/dry Progress/Results/Core Measures Suspected Sepsis SIRS Temperature: Pulse: Respiratory Rate: Laboratory Tests 02/01/20 19:15: White Blood Count 8.4 Blood Pressure / Mean: Laboratory Tests 02/01/20 19:15: Creatinine 0.74, Platelet Count 224, Total Bilirubin 0.2 Results/Orders Lab Results Laboratory Tests Test 02/01/20 19:15 Range/Units White Blood Count 8.4 4.3-11.0 10^3/uL Red Blood Count 4.84 4.35-5.85 10^6/uL Hemoglobin 14.2 11.5-16.0 G/DL Hematocrit 42 35-52 % Mean Corpuscular Volume 87 80-99 FL Mean Corpuscular Hemoglobin 29 25-34 PG Mean Corpuscular Hemoglobin Concent 34 32-36 G/DL Red Cell Distribution Width 13.2 10.0-14.5 % Platelet Count 224 130-400 10^3/uL Mean Platelet Volume 10.3 7.4-10.4 FL Neutrophils (%) (Auto) 46 42-75 % Lymphocytes (%) (Auto) 40 12-44 % Monocytes (%) (Auto) 12 0-12 % Eosinophils (%) (Auto) 3 0-10 % Basophils (%) (Auto) 0 0-10 % Neutrophils # (Auto) 3.8 1.8-7.8 X 10^3 Lymphocytes # (Auto) 3.3 1.0-4.0 X 10^3 Monocytes # (Auto) 1.0 0.0-1.0 X 10^3 Eosinophils # (Auto) 0.2 0.0-0.3 10^3/uL Basophils # (Auto) 0.0 0.0-0.1 10^3/uL D-Dimer 0.39 0.00-0.49 UG/ML Sodium Level 139 135-145 MMOL/L Potassium Level 3.7 3.6-5.0 MMOL/L Chloride Level 105 98-107 MMOL/L Carbon Dioxide Level 24 21-32 MMOL/L Anion Gap 10 5-14 MMOL/L Blood Urea Nitrogen 11 7-18 MG/DL Creatinine 0.74 0.60-1.30 MG/DL Estimat Glomerular Filtration Rate > 60 BUN/Creatinine Ratio 15 Glucose Level 93 70-105 MG/DL Calcium Level 9.2 8.5-10.1 MG/DL Corrected Calcium 8.9 8.5-10.1 MG/DL Total Bilirubin 0.2 0.1-1.0 MG/DL Aspartate Amino Transf (AST/SGOT) 18 5-34 U/L Alanine Aminotransferase (ALT/SGPT) 14 0-55 U/L Alkaline Phosphatase 52 40-136 U/L Total Protein 7.1 6.4-8.2 GM/DL Albumin 4.4 3.2-4.5 GM/DL Serum Test, Qualitative NEGATIVE NEGATIVE My Orders Orders - ISMAEL SOL APRN Cbc With Automated Diff (02/01/20 19:10) Hcg,Qualitative Serum (02/01/20 19:10) Chest Pa/Lat (2 View) (02/01/20 19:10) Comprehensive Metabolic Panel (02/01/20 19:10) Fibrin Degradation Products (02/01/20 19:10) Ed Iv/Invasive Line Start (02/01/20 19:10) Vital Signs/I&O 02/01/20 19:20 Temp 36.6 Pulse 120 Resp 16 B/P (MAP) 139/93 (108) Capillary Refill : Departure Impression Primary Impression: subjective dyspnea Disposition: 01 HOME, SELF-CARE Condition: Stable Departure-Patient Inst. Decision time for Depature: 20:07 Referrals: NEWTON MONTEJO MD (PCP/Family) Primary Care Physician Patient Instructions: Shortness of Breath (Dyspnea) Add. Discharge Instructions: 1. Steroids as directed 2. Follow-up with your doctor next week Scripts Prednisone (Prednisone) 20 Mg Tab 40 MG PO DAILY, #6 TAB 0 Refills Prov: ISMAEL SOL APRN 02/01/20 ISMAEL SOL APRN Feb 01, 2020 19:12
[2020-02-01 19:23] LABS: BASOPHILS % (AUTO) 0 % (0-10); EOSINOPHILS # (AUTO) 0.2 10^3/uL (0.0-0.3); EOSINOPHILS % (AUTO) 3 % (0-10); HEMATOCRIT 42 % (35-52); HEMOGLOBIN 14.2 G/DL (11.5-16.0); LYMPHOCYTES # (AUTO) 3.3 X 10^3 (1.0-4.0); LYMPHOCYTES % (AUTO) 40 % (12-44); MEAN CORPUSCULAR HEMOGLOBIN 29 PG (25-34); MEAN CORPUSCULAR HGB CONC 34 G/DL (32-36); MEAN CORPUSCULAR VOLUME 87 FL (80-99); MEAN PLATELET VOLUME 10.3 FL (7.4-10.4); MONOCYTES % (AUTO) 12 % (0-12); NEUTROPHILS # (AUTO) 3.8 X 10^3 (1.8-7.8); NEUTROPHILS % (AUTO) 46 % (42-75); PLATELET COUNT 224 10^3/uL (130-400); RED CELL DISTRIBUTION WIDTH 13.2 % (10.0-14.5); WHITE BLOOD COUNT 8.4 10^3/uL (4.3-11.0)
--- OUTSIDE RECORDS SUMMARY | 2020-02-01 19:38 | XMS REPORT | Continuity of Care Document ---
Author Organization Unknown Address Unknown Phone Unavailable Allergies Active Description Code Type Severity Reaction Onset Reported/Identified Relationship to Patient Clinical Status Yes Penicillins Drug Allergy N/A N/A 12/17/2009 Yes Penicillins Drug Allergy 12/17/2009 Yes diclofenac sodium 75 mg Tablet, Delayed Release (E.C.) Drug Allergy N/A N/A 12/29/2011 Yes diclofenac sodium 75 mg Tablet, Delayed Release (E.C.) Drug Allergy 12/29 Yes thioridazine 25 mg tablet Drug Allergy N/A N/A 05/09/2013 Yes Penicillins [id number] Drug Aller gy Mild PT ABLE TO TAKE 03/26/2014 Yes Depakote 250 mg tablet,delayed release ( DR/EC) Drug Allergy N/A N/A 03/2015 Yes diclofenac [id number] Drug Allerg y Unknown N/A 01/21/2015 Yes divalproex sodium [id number] Drug Allergy Unknown N/A 08/26/2015 Medications There is no data. Problems Date Dx Coded Attending Type Code Diagnosis Diagnosed By GERBER JONES, JENNIFER Altamirano Ot R10.2 PELVIC AND PERINEAL PAIN 06/20/2008 WOLF JAMA MD 296.9 0 Mood Disorder 06/20/2008 WOLF JAMA MD 296.9 0 Mood Disorder 06/20/2008 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 06/20/2008 NICOLA MANUEL DO 296.90 Mood Disorder 06/20/2008 JASON SOLANO DO 296 .90 Mood Disorder 06/20/2008 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 06/20/2008 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 06/20/2008 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 06/20/2008 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 06/20/2008 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 06/20/2008 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 06/20/2008 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 06/20/2008 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 06/20/2008 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 06/20/2008 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 06/20/2008 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 06/20/2008 NICOLA MANUEL DO K 296.90 Mood Disorder 06/20/2008 JASON HUNTER APRN D 296.90 Mood Disorder 06/20/2008 WOLF JAMA MD 296.9 0 Mood Disorder 06/20/2008 MANUEL NICOLA BLANTON K 296.90 Mood Disorder 06/20/2008 KELY FRIEDMAN DDS 296.90 Mood Disorder 06/20/2008 JASON HUNTER APRN D 296.90 Mood Disorder 06/20/2008 GARJASON RENTERIA APRN D 296.90 Mood Disorder 06/20/2008 JASON HUNTER APRN D 296.90 Mood Disorder 06/20/2008 WOLF JAMA MD 296.9 0 Mood Disorder 06/20/2008 ROEL PLUMBING INSPECTOR, GODWIN 296 .90 Mood Disorder 06/20/2008 MADL PLUMBING INSPECTOR, FLO L 296 .90 Mood Disorder 06/20/2008 ROEL PLUMBING INSPECTOR, GODWIN 296 .90 Mood Disorder 06/20/2008 MADL PLUMBING INSPECTOR, FLO L 296 .90 Mood Disorder 06/20/2008 ROEL PLUMBING INSPECTOR, GODWIN 296 .90 Mood Disorder 06/20/2008 ROEL PLUMBING INSPECTOR, GODWIN 296 .90 Mood Disorder 06/20/2008 MADL PLUMBING INSPECTOR, FLO L 296 .90 Mood Disorder 06/20/2008 MADL PLUMBING INSPECTOR, FLO L 296 .90 Mood Disorder 06/20/2008 ROEL PLUMBING INSPECTOR, GODWIN 296 .90 Mood Disorder 06/20/2008 SONNY PLUMBING INSPECTOR, ELIAS A 296.90 Mood Disorder 06/20/2008 [facility], DEMOND R 296.90 Mood Disorder 06/20/2008 MADL PLUMBING INSPECTOR, FLO L 296 .90 Mood Disorder 06/20/2008 JOSE SILVERIO DDS 296.90 Mood Disorder 06/20/2008 [facility], DEMOND R 296.90 Mood Disorder 06/20/2008 [facility], DEMOND R 296.90 Mood Disorder 06/20/2008 ROEL PLUMBING INSPECTOR, GODWIN 296 .90 Mood Disorder 06/20/2008 NICOLA MANUEL DO K 296.90 Mood Disorder 06/20/2008 GODWIN SEVILLA APRN 296 .90 Mood Disorder 06/20/2008 GODWIN SEVILLA APRN 296 .90 Mood Disorder 10/03/2008 WOLF JAMA MD 465.9 Upper Respiratory Infection 10/03/2008 WOLF JAMA MD 465.9 Upper Respiratory Infection 10/03/2008 465.9 Uppe r Respiratory Infection 10/03/2008 MAR BLANTON NICOLA K 465.9 Upper Respiratory Infection 10/03/2008 JASON SOLANO DO 465 .9 Upper Respiratory Infection 10/03/2008 465.9 Uppe r Respiratory Infection 10/03/2008 465.9 Uppe r Respiratory Infection 10/03/2008 465.9 Uppe r Respiratory Infection 10/03/2008 465.9 Uppe r Respiratory Infection 10/03/2008 465.9 Uppe r Respiratory Infection 10/03/2008 465.9 Uppe r Respiratory Infection 10/03/2008 465.9 Uppe r Respiratory Infection 10/03/2008 465.9 Uppe r Respiratory Infection 10/03/2008 465.9 Uppe r Respiratory Infection 10/03/2008 465.9 Uppe r Respiratory Infection 10/03/2008 465.9 Uppe r Respiratory Infection 10/03/2008 MANUEL DO NICOLA K 465.9 Upper Respiratory Infection 10/03/2008 JASON HUNTER APRN 465.9 Upper Respiratory Infection 10/03/2008 WOLF JAMA MD 465.9 Upper Respiratory Infection 10/03/2008 MANUEL DOMARALA K 465.9 Upper Respiratory Infection 10/03/2008 IDALIA JENKINSS, KELY J 46 5.9 Upper Respiratory Infection 10/03/2008 JASON HUNTER APRN 465.9 Upper Respiratory Infection 10/03/2008 JASON HUNTER APRN 465.9 Upper Respiratory Infection 10/03/2008 AJSON HUNTER APRN 465.9 Upper Respiratory Infection 10/03/2008 WOLF JAMA MD 465.9 Upper Respiratory Infection 10/03/2008 GODWIN SEVILLA APRN 465 .9 Upper Respiratory Infection 10/03/2008 ROSITA GONZALEZ APRNA L 465 .9 Upper Respiratory Infection 10/03/2008 GODWIN SEVILLA APRN 465 .9 Upper Respiratory Infection 10/03/2008 MADL PLUMBING INSPECTOR, FLO L 465 .9 Upper Respiratory Infection 10/03/2008 ROEL PLUMBING INSPECTOR, GODWIN 465 .9 Upper Respiratory Infection 10/03/2008 ROEL PLUMBING INSPECTOR, GODWIN 465 .9 Upper Respiratory Infection 10/03/2008 MADL PLUMBING INSPECTOR, FLO L 465 .9 Upper Respiratory Infection 10/03/2008 MADL PLUMBING INSPECTOR, FLO L 465 .9 Upper Respiratory Infection 10/03/2008 ROEL PLUMBING INSPECTOR, GODWIN 465 .9 Upper Respiratory Infection 10/03/2008 SONNY PLUMBING INSPECTOR, ELIAS A 46 5.9 Upper Respiratory Infection 10/03/2008 [facility], DEMOND R 465.9 Upper Respiratory Infection 10/03/2008 MADL PLUMBING INSPECTOR, FLO L 465 .9 Upper Respiratory Infection 10/03/2008 SILVERIO DDS, JOSE 46 5.9 Upper Respiratory Infection 10/03/2008 [facility], DEMOND R 465.9 Upper Respiratory Infection 10/03/2008 [facility], DEMOND R 465.9 Upper Respiratory Infection 10/03/2008 ROEL PLUMBING INSPECTOR, GODWIN 465 .9 Upper Respiratory Infection 10/03/2008 NICOLA MANUEL DO K 465.9 Upper Respiratory Infection 10/03/2008 ROEL PLUMBING INSPECTOR, GODWIN 465 .9 Upper Respiratory Infection 10/03/2008 ROEL PLUMBING INSPECTOR, GODWIN 465 .9 Upper Respiratory Infection 11/27/2008 WOLF JAMA MD V58.6 9 Medication High Risk 11/27/2008 WOLF JAMA MD V58.6 9 Medication High Risk 11/27/2008 V58.69 Med ication High Risk 11/27/2008 NICOLA MANUEL DO V58.69 Medication High Risk 11/27/2008 JASON SOLANO DO V58 .69 Medication High Risk 11/27/2008 V58.69 Med ication High Risk 11/27/2008 V58.69 Med ication High Risk 11/27/2008 V58.69 Med ication High Risk 11/27/2008 V58.69 Med ication High Risk 11/27/2008 V58.69 Med ication High Risk 11/27/2008 V58.69 Med ication High Risk 11/27/2008 V58.69 Med ication High Risk 11/27/2008 V58.69 Med ication High Risk 11/27/2008 V58.69 Med ication High Risk 11/27/2008 V58.69 Med ication High Risk 11/27/2008 V58.69 Med ication High Risk 11/27/2008 NICOLA MANUEL DO V58.69 Medication High Risk 11/27/2008 JASON HUNTER APRN V58.69 Medication High Risk 11/27/2008 WOLF JAMA MD V58.6 9 Medication High Risk 11/27/2008 MANUEL NICOLA BLANTON V58.69 Medication High Risk 11/27/2008 IDALIA DDS, KELY Dickens V58.69 Medication High Risk 11/27/2008 GARJASON RENTERIA APRN V58.69 Medication High Risk 11/27/2008 JASON HUNTER APRN V58.69 Medication High Risk 11/27/2008 JASON HUNTER APRN V58.69 Medication High Risk 11/27/2008 WOLF JAMA MD V58.6 9 Medication High Risk 11/27/2008 ROEL PLUMBING INSPECTOR, GODWIN V58 .69 Medication High Risk 11/27/2008 MADL PLUMBING INSPECTOR, FLO L V58 .69 Medication High Risk 11/27/2008 ROEL PLUMBING INSPECTOR, GODWIN V58 .69 Medication High Risk 11/27/2008 MADL PLUMBING INSPECTOR, FLO L V58 .69 Medication High Risk 11/27/2008 ROEL PLUMBING INSPECTOR, GODWIN V58 .69 Medication High Risk 11/27/2008 ROEL PLUMBING INSPECTOR, GODWIN V58 .69 Medication High Risk 11/27/2008 MADL PLUMBING INSPECTOR, FLO L V58 .69 Medication High Risk 11/27/2008 MADL PLUMBING INSPECTOR, FLO L V58 .69 Medication High Risk 11/27/2008 ROEL PLUMBING INSPECTOR, GODWIN V58 .69 Medication High Risk 11/27/2008 SONNY PLUMBING INSPECTOR, ELIAS A V58.69 Medication High Risk 11/27/2008 [facility], DEMOND R V58.69 Medication High Risk 11/27/2008 MADL PLUMBING INSPECTOR, FLO L V58 .69 Medication High Risk 11/27/2008 NUSRAT DDSJOSE V58.69 Medication High Risk 11/27/2008 [facility], DEMOND R V58.69 Medication High Risk 11/27/2008 [facility], DEMOND R V58.69 Medication High Risk 11/27/2008 ROEL PLUMBING INSPECTOR, GODWIN V58 .69 Medication High Risk 11/27/2008 NICOLA MANUEL DO V58.69 Medication High Risk 11/27/2008 ROEL PLUMBING INSPECTOR, GODWIN V58 .69 Medication High Risk 11/27/2008 ROEL PLUMBING INSPECTOR, GODWIN V58 .69 Medication High Risk 07/01/2009 WOLF JAMA MD 296.3 2 MO DEPRESSIVE RECURRENT MODERATE 07/01/2009 WOLF JAMA MD 300.0 0 AN ANXIETY UNSPEC 07/01/2009 WOLF JAMA MD 301.8 3 Pd Borderline 07/01/2009 WOLF JAMA MD 296.3 2 MO DEPRESSIVE RECURRENT MODERATE 07/01/2009 WOLF JAMA MD 300.0 0 AN ANXIETY UNSPEC 07/01/2009 WOLF JAMA MD 301.8 3 Pd Borderline 07/01/2009 296.32 MO DEPRESSIVE RECURRENT MODERATE 07/01/2009 300.00 AN ANXIETY UNSPEC 07/01/2009 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 07/01/2009 NICOLA MANUEL DO 296.32 MO DEPRESSIVE RECURRENT MODERATE 07/01/2009 NICOLA MANUEL DO 300.00 AN ANXIETY UNSPEC 07/01/2009 NICOLA MANUEL DO 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 07/01/2009 JASON SOLANO DO 296 .32 MO DEPRESSIVE RECURRENT MODERATE 07/01/2009 JASON SOLANO DO 300 .00 AN ANXIETY UNSPEC 07/01/2009 JASON SOLANO DO 301 .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 07/01/2009 296.32 MO DEPRESSIVE RECURRENT [...] 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 07/01/2009 NICOLA MANUEL DO 296.32 MO DEPRESSIVE RECURRENT MODERATE 07/01/2009 NICOLA MANUEL DO 300.00 AN ANXIETY UNSPEC 07/01/2009 NICOLA MANUEL DO 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 07/01/2009 JASON HUNTER APRN 296.32 MO DEPRESSIVE RECURRENT MODERATE 07/01/2009 JASON HUNTER APRN 300.00 AN ANXIETY UNSPEC 07/01/2009 JASON HUNTER APRN 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 07/01/2009 WOLF JAMA MD 296.3 2 MO DEPRESSIVE RECURRENT MODERATE 07/01/2009 WOLF JAMA MD 300.0 0 AN ANXIETY UNSPEC 07/01/2009 WOLF JAMA MD 301.8 3 Pd Borderline 07/01/2009 NICOLA MANUEL DO 296.32 MO DEPRESSIVE RECURRENT MODERATE 07/01/2009 NICOLA MANUEL DO 300.00 AN ANXIETY UNSPEC 07/01/2009 NICOLA MANUEL DO 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 07/01/2009 WHITE KELY BAKER 296.32 MO DEPRESSIVE RECURRENT MODERATE 07/01/2009 WHITE DDSKELY J 300.00 AN ANXIETY UNSPEC 07/01/2009 WHITE ALICESKELY J 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 07/01/2009 JASON HUNTER [...] 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 07/01/2009 WOLF JAMA MD 296.3 2 MO DEPRESSIVE RECURRENT MODERATE 07/01/2009 WOLF JAMA MD 300.0 0 AN ANXIETY UNSPEC 07/01/2009 WOLF JAMA MD 301.8 3 Pd Borderline 07/01/2009 ROEL MENG GODWIN 296 .32 MO DEPRESSIVE RECURRENT MODERATE 07/01/2009 ROEL MENG GODWIN 300 .00 AN ANXIETY UNSPEC 07/01/2009 ROEL TAQUERIA GODWIN 301 .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 07/01/2009 BRYANL PLUMBING INSPECTOR, FLO L 296 .32 MO DEPRESSIVE RECURRENT MODERATE 07/01/2009 BRYANL PLUMBING INSPECTOR, FLO L 300 .00 AN ANXIETY UNSPEC 07/01/2009 MADL PLUMBING INSPECTOR, FLO L 301 .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 07/01/2009 ROEL PLUMBING INSPECTOR, GODWIN 296 .32 MO DEPRESSIVE RECURRENT MODERATE 07/01/2009 ROEL PLUMBING INSPECTOR, GODWIN 300 .00 AN ANXIETY UNSPEC 07/01/2009 ROEL PLUMBING INSPECTOR, GODWIN 301 .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 07/01/2009 MADL PLUMBING INSPECTOR, FLO L 296 .32 MO DEPRESSIVE RECURRENT MODERATE 07/01/2009 MADL PLUMBING INSPECTOR, FLO L 300 .00 AN ANXIETY UNSPEC 07/01/2009 MADL PLUMBING INSPECTOR, FLO L 301 .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 07/01/2009 ROEL PLUMBING INSPECTOR, GODWIN 296 .32 MO DEPRESSIVE RECURRENT MODERATE 07/01/2009 ROEL PLUMBING INSPECTOR, GODWIN 300 .00 AN ANXIETY UNSPEC 07/01/2009 ROEL PLUMBING INSPECTOR, GODWIN 301 .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 07/01/2009 ROEL PLUMBING INSPECTOR, GODWIN 296 .32 MO DEPRESSIVE RECURRENT MODERATE 07/01/2009 ROEL PLUMBING INSPECTOR, GODWIN 300 .00 AN ANXIETY UNSPEC 07/01/2009 ROEL PLUMBING INSPECTOR, GODWIN 301 .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 07/01/2009 MADL PLUMBING INSPECTOR, FLO L 296 .32 MO DEPRESSIVE RECURRENT MODERATE 07/01/2009 MADL PLUMBING INSPECTOR, FLO L 300 .00 AN ANXIETY UNSPEC 07/01/2009 MADL PLUMBING INSPECTOR, FLO L 301 .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 07/01/2009 MADL PLUMBING INSPECTOR, FLO L 296 .32 MO DEPRESSIVE RECURRENT MODERATE 07/01/2009 MADL PLUMBING INSPECTOR, FLO L 300 .00 AN ANXIETY UNSPEC 07/01/2009 MADL PLUMBING INSPECTOR, FLO L 301 .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 07/01/2009 ROEL MENG, GODWIN 296 .32 MO DEPRESSIVE RECURRENT MODERATE 07/01/2009 ROEL MENG GODWIN 300 .00 AN ANXIETY UNSPEC 07/01/2009 ROEL MENG, GODWIN 301 .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 07/01/2009 SONNY MENG, ELIAS A 296.32 MO DEPRESSIVE RECURRENT MODERATE 07/01/2009 SONNYKENJI MENG, ELIAS A 300.00 AN ANXIETY UNSPEC 07/01/2009 SONNYKENJI MENG, ELIAS A 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 07/01/2009 [facility], DEMOND R 296.32 MO DEPRESSIVE RECURRENT MODERATE 07/01/2009 [facility], DEMOND R 300.00 AN ANXIETY UNSPEC 07/01/2009 [facility], DEMOND R 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 07/01/2009 MADL TAQUERIA, FLO L 296 .32 MO DEPRESSIVE RECURRENT MODERATE 07/01/2009 LISA CANON, FLO L 300 .00 AN ANXIETY UNSPEC 07/01/2009 MADL PLUMBING INSPECTOR, FLO L 301 .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 07/01/2009 SILVERIO DDS JOSE 296.32 MO DEPRESSIVE RECURRENT MODERATE 07/01/2009 SILVERIO DDS JOSE 300.00 AN ANXIETY UNSPEC 07/01/2009 SILVERIO DDS, JOSE 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 07/01/2009 [facility], DEMOND R 296.32 MO DEPRESSIVE RECURRENT MODERATE 07/01/2009 [facility], DEMOND R 300.00 AN ANXIETY UNSPEC 07/01/2009 [facility], DEMOND R 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 07/01/2009 [facility], DEMOND R 296.32 MO DEPRESSIVE RECURRENT MODERATE 07/01/2009 [facility], DEMOND R 300.00 AN ANXIETY UNSPEC 07/01/2009 [facility], DEMOND R 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 07/01/2009 ROEL PLUMBING INSPECTOR, GODWIN 296 .32 MO DEPRESSIVE RECURRENT MODERATE 07/01/2009 ROEL PLUMBING INSPECTOR, GODWIN 300 .00 AN ANXIETY UNSPEC 07/01/2009 ROEL PLUMBING INSPECTOR, GODWIN 301 .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 07/01/2009 MANUEL DO NICOLA K 296.32 MO DEPRESSIVE RECURRENT MODERATE 07/01/2009 MANUEL DO NICOLA K 300.00 AN ANXIETY UNSPEC 07/01/2009 MANUEL DO, NICOLA K 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 07/01/2009 ROEL PLUMBING INSPECTOR, GODWIN 296 .32 MO DEPRESSIVE RECURRENT MODERATE 07/01/2009 ROEL PLUMBING INSPECTOR, GODWIN 300 .00 AN ANXIETY UNSPEC 07/01/2009 ROEL PLUMBING INSPECTOR, GODWIN 301 .83 Pd Borderline 07/01/2009 ROEL PLUMBING INSPECTOR, GODWIN 296 .32 MO DEPRESSIVE RECURRENT MODERATE 07/01/2009 ROEL PLUMBING INSPECTOR, GODWIN 300 .00 AN ANXIETY UNSPEC 07/01/2009 ROEL PLUMBING INSPECTOR, GODWIN 301 .83 Pd Borderline 07/16/2009 WOLF JAMA MD 300.0 1 AN PANIC DIS W/O AGORA 07/16/2009 WOLF JAMA MD 300.0 1 AN PANIC DIS W/O AGORA 07/16/2009 300.01 AN PANIC DIS W/O AGORA 07/16/2009 NICOLA MANUEL DO K 300.01 AN PANIC DIS W/O AGORA 07/16/2009 JASON SOLANO DO 300 .01 AN PANIC DIS W/O AGORA 07/16/2009 300.01 [...] AN PANIC DIS W/O AGORA 07/16/2009 MANUEL DONICOLA K 300.01 AN PANIC DIS W/O AGORA 07/16/2009 JASON HUNTER APRN 300.01 AN PANIC DIS W/O AGORA 07/16/2009 WOLF JAMA MD 300.0 1 AN PANIC DIS W/O AGORA 07/16/2009 MANUEL NICOLA BLANTON K 300.01 AN PANIC DIS W/O AGORA 07/16/2009 IDALIA BAKER, KELY J 300.01 AN PANIC DIS W/O AGORA 07/16/2009 JASON HUNTER APRN 300.01 AN PANIC DIS W/O AGORA 07/16/2009 JASON HUNTER APRN 300.01 AN PANIC DIS W/O AGORA 07/16/2009 JASON HUNTER APRN 300.01 AN PANIC DIS W/O AGORA 07/16/2009 WOLF JAMA MD 300.0 1 AN PANIC DIS W/O AGORA 07/16/2009 GODWIN SEVILLA APRN 300 .01 AN PANIC DIS W/O AGORA 07/16/2009 EARNESTINE GONZALEZ APRNNYA L 300 .01 AN PANIC DIS W/O AGORA 07/16/2009 GODWIN SEVILLA APRN 300 .01 AN PANIC DIS W/O AGORA 07/16/2009 LISA MENG FLO L 300 .01 AN PANIC DIS W/O AGORA 07/16/2009 GODWIN SEVILLA APRN 300 .01 AN PANIC DIS W/O AGORA 07/16/2009 GODWIN SEVILLA APRN 300 .01 AN PANIC DIS W/O AGORA 07/16/2009 EARNESTINE GONZALEZ APRNNYA L 300 .01 AN PANIC DIS W/O AGORA 07/16/2009 EARNESTINE GONZALEZ APRNNYA L 300 .01 AN PANIC DIS W/O AGORA 07/16/2009 ROEL PLUMBING INSPECTOR, GODWIN 300 .01 AN PANIC DIS W/O AGORA 07/16/2009 SONNY PLUMBING INSPECTOR, ELIAS A 300.01 AN PANIC DIS W/O AGORA 07/16/2009 [facility], DEMOND R 300.01 AN PANIC DIS W/O AGORA 07/16/2009 LISA PLUMBING INSPECTOR, FLO Alfred 300 .01 AN PANIC DIS W/O AGORA 07/16/2009 SILVERIO DDSJOSE 300.01 AN PANIC DIS W/O AGORA 07/16/2009 [facility], DEMOND R 300.01 AN PANIC DIS W/O AGORA 07/16/2009 [facility], DEMOND R 300.01 AN PANIC DIS W/O AGORA 07/16/2009 ROEL PLUMBING INSPECTOR, GODWIN 300 .01 AN PANIC DIS W/O AGORA 07/16/2009 NICOLA MANUEL DO K 300.01 AN PANIC DIS W/O AGORA 07/16/2009 ROEL PLUMBING INSPECTOR, GODWIN 300 .01 AN PANIC DIS W/O AGORA 07/16/2009 ROEL PLUMBING INSPECTOR, GODWIN 300 .01 AN PANIC DIS W/O AGORA 07/25/2009 WOLF JAMA MD 307.4 7 Si Dyssomnia Nos 07/25/2009 WOLF JAMA MD 307.4 7 Si Dyssomnia Nos 07/25/2009 307.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 07/25/2009 MAR BLANTON NICOLA K 307.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 07/25/2009 JASON SOLANO DO 307 .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 07/25/2009 307.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 07/25/2009 307.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 07/25/2009 307.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 07/25/2009 307.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 07/25/2009 307.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 07/25/2009 307.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 07/25/2009 307.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 07/25/2009 307.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 07/25/2009 307.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 07/25/2009 307.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 07/25/2009 307.47 Si Dyssomnia Nos 07/25/2009 MANUEL DO, NICOLA K 307.47 Si Dyssomnia Nos 07/25/2009 JASON HUNTER APRN 307.47 Si Dyssomnia Nos 07/25/2009 WOLF JAMA MD 307.4 7 Si Dyssomnia Nos 07/25/2009 MANUEL DO, NICOLA K 307.47 Si Dyssomnia Nos 07/25/2009 KELY FRIEDMAN DDS 307.47 Si Dyssomnia Nos 07/25/2009 GARTON PLUMBING INSPECTORJASON Kirkpatrick 307.47 Si Dyssomnia Nos 07/25/2009 GARTON PLUMBING INSPECTORJASON Kirkpatrick 307.47 Si Dyssomnia Nos 07/25/2009 DALE PLUMBING INSPECTORJASON Kirkpatrick 307.47 Si Dyssomnia Nos 07/25/2009 WOLF JAMA MD 307.4 7 Si Dyssomnia Nos 07/25/2009 ROEL PLUMBING INSPECTOR, GODWIN 307 .47 Si Dyssomnia Nos 07/25/2009 MADL PLUMBING INSPECTOR, FLO L 307 .47 Si Dyssomnia Nos 07/25/2009 ROEL PLUMBING INSPECTOR, GODWIN 307 .47 Si Dyssomnia Nos 07/25/2009 MADL PLUMBING INSPECTOR, FLO L 307 .47 Si Dyssomnia Nos 07/25/2009 ROEL PLUMBING INSPECTOR, GODWIN 307 .47 Si Dyssomnia Nos 07/25/2009 ROEL PLUMBING INSPECTOR, GODWIN 307 .47 Si Dyssomnia Nos 07/25/2009 MADL PLUMBING INSPECTOR, FLO L 307 .47 Si Dyssomnia Nos 07/25/2009 MADL PLUMBING INSPECTOR, FLO L 307 .47 Si Dyssomnia Nos 07/25/2009 ROEL PLUMBING INSPECTOR, GODWIN 307 .47 Si Dyssomnia Nos 07/25/2009 SONNYCasimiro MENG ELIAS A 307.47 Si Dyssomnia Nos 07/25/2009 [facility].47 Si Dyssomnia Nos 07/25/2009 MADL PLUMBING INSPECTOR, FLO L 307 .47 Si Dyssomnia Nos 07/25/2009 JOSE SILVERIO DDS 307.47 Si Dyssomnia Nos 07/25/2009 [facility], DEMOND R 307.47 Si Dyssomnia Nos 07/25/2009 [facility], DEMOND R 307.47 Si Dyssomnia Nos 07/25/2009 ROEL PLUMBING INSPECTOR, GODWIN 307 .47 Si Dyssomnia Nos 07/25/2009 NICOLA MANUEL DO 307.47 Si Dyssomnia Nos 07/25/2009 ROEL PLUMBING INSPECTOR, GODWIN 307 .47 Si Dyssomnia Nos 07/25/2009 ROEL PLUMBING INSPECTOR, GODWIN 307 .47 Si Dyssomnia Nos 12/17/2009 WOLF JAMA MD 311 DEPRESSIVE DISORDER NOS 12/17/2009 WOLF JAMA MD 311 DEPRESSIVE DISORDER NOS 12/17/2009 311 DEPRES SIVE DISORDER NOS 12/17/2009 NICOLA MANUEL DO 311 DEPRESSIVE DISORDER NOS 12/17/2009 JASON SOLANO DO 311 DEPRESSIVE DISORDER NOS 12/17/2009 311 DEPRES SIVE DISORDER NOS 12/17/2009 311 DEPRES SIVE DISORDER NOS 12/17/2009 311 DEPRES SIVE DISORDER NOS 12/17/2009 311 DEPRES SIVE DISORDER NOS 12/17/2009 311 DEPRES SIVE DISORDER NOS 12/17/2009 311 DEPRES SIVE DISORDER NOS 12/17/2009 311 DEPRES SIVE DISORDER NOS 12/17/2009 311 DEPRES SIVE DISORDER NOS 12/17/2009 311 DEPRES SIVE DISORDER NOS 12/17/2009 311 DEPRES SIVE DISORDER NOS 12/17/2009 311 DEPRES SIVE DISORDER NOS 12/17/2009 NICOLA MANUEL DO 311 DEPRESSIVE DISORDER NOS 12/17/2009 JASON HUNTER APRN 311 DEPRESSIVE DISORDER NOS 12/17/2009 WOLF JAMA MD 311 DEPRESSIVE DISORDER NOS 12/17/2009 NICOLA MANUEL DO 311 DEPRESSIVE DISORDER NOS 12/17/2009 KELY FRIEDMAN DDS 31 1 DEPRESSIVE DISORDER NOS 12/17/2009 JASON HUNTER APRN 311 DEPRESSIVE DISORDER NOS 12/17/2009 JASON HUNTER APRN 311 DEPRESSIVE DISORDER NOS 12/17/2009 JASON HUNTER APRN 311 DEPRESSIVE DISORDER NOS 12/17/2009 WOLF JAMA MD 311 DEPRESSIVE DISORDER NOS 12/17/2009 GODWIN SEVILLA APRN 311 DEPRESSIVE DISORDER NOS 12/17/2009 MADL PLUMBING INSPECTOR, FLO L 311 DEPRESSIVE DISORDER NOS 12/17/2009 ROEL PLUMBING INSPECTOR, GODWIN 311 DEPRESSIVE DISORDER NOS 12/17/2009 MADL PLUMBING INSPECTOR, FLO L 311 DEPRESSIVE DISORDER NOS 12/17/2009 ROEL PLUMBING INSPECTOR, GODWIN 311 DEPRESSIVE DISORDER NOS 12/17/2009 ROEL PLUMBING INSPECTOR, GODWIN 311 DEPRESSIVE DISORDER NOS 12/17/2009 MADL PLUMBING INSPECTOR, FLO L 311 DEPRESSIVE DISORDER NOS 12/17/2009 MADL PLUMBING INSPECTOR, FLO L 311 DEPRESSIVE DISORDER NOS 12/17/2009 ROEL PLUMBING INSPECTOR, GODWIN 311 DEPRESSIVE DISORDER NOS 12/17/2009 SONNY PLUMBING INSPECTOR, ELIAS A 31 1 DEPRESSIVE DISORDER NOS 12/17/2009 [facility], DEMOND R 311 DEPRESSIVE DISORDER NOS 12/17/2009 MADL PLUMBING INSPECTOR, FLO L 311 DEPRESSIVE DISORDER NOS 12/17/2009 SILVERIO DDS, JOSE 31 1 DEPRESSIVE DISORDER NOS 12/17/2009 [facility], DEMOND R 311 DEPRESSIVE DISORDER NOS 12/17/2009 [facility], DEMOND R 311 DEPRESSIVE DISORDER NOS 12/17/2009 ROEL PLUMBING INSPECTOR, GODWIN 311 DEPRESSIVE DISORDER NOS 12/17/2009 NICOLA MANUEL DO 311 DEPRESSIVE DISORDER NOS 12/17/2009 [employer], GODWIN 311 DEPRESSIVE DISORDER NOS 12/17/2009 [employer]UM[employer] INSPECTOR, GODWIN 311 DEPRESSIVE DISORDER NOS 05/06/2010 Ot 620.2 05/06/2010 Ot 789.04 05/13/2010 WOLF JAMA MD V72.3 1 Oil Expeller Exam, Routine 05/13/2010 WOLF JAMA MD V72.3 1 Oil Expeller Exam, Routine 05/13/2010 V72.31 Oil Expeller Exam, Routine 05/13/2010 NICOLA MANUEL DO V72.31 Oil Expeller Exam, Routine 05/13/2010 JASON SOLANO DO V72 .31 Oil Expeller Exam, Routine 05/13/2010 V72.31 Oil Expeller Exam, Routine 05/13/2010 V72.31 Oil Expeller Exam, Routine 05/13/2010 V72.31 Oil Expeller Exam, Routine 05/13/2010 V72.31 Oil Expeller Exam, Routine 05/13/2010 V72.31 Oil Expeller Exam, Routine 05/13/2010 V72.31 Oil Expeller Exam, Routine 05/13/2010 V72.31 Oil Expeller Exam, Routine 05/13/2010 V72.31 Oil Expeller Exam, Routine 05/13/2010 V72.31 Oil Expeller Exam, Routine 05/13/2010 V72.31 Oil Expeller Exam, Routine 05/13/2010 V72.31 Oil Expeller Exam, Routine 05/13/2010 NICOLA MANUEL DO V72.31 Oil Expeller Exam, Routine 05/13/2010 JASON HUNTER APRN V72.31 Oil Expeller Exam, Routine 05/13/2010 WOLF JAMA MD V72.3 1 Oil Expeller Exam, Routine 05/13/2010 NICOLA MANUEL DO V72.31 Oil Expeller Exam, Routine 05/13/2010 IDALIA JENKINSSKELY V72.31 Oil Expeller Exam, Routine 05/13/2010 JASON HUNTER APRN V72.31 Oil Expeller Exam, Routine 05/13/2010 JASON HUNTER APRN V72.31 Oil Expeller Exam, Routine 05/13/2010 JASON HUNTER APRN V72.31 Oil Expeller Exam, Routine 05/13/2010 WOLF JAMA MD V72.3 1 Oil Expeller Exam, Routine 05/13/2010 [employer] PLUM[employer] INSPECTOR, GODWIN V72 .31 Oil Expeller Exam, Routine 05/13/2010 MADL PLUMBING INSPECTOR, FLO L V72 .31 Oil Expeller Exam, Routine 05/13/2010 [employer] PLUM[employer] INSPECTOR, GODWIN V72 .31 Oil Expeller Exam, Routine 05/13/2010 MADL PLUMBING INSPECTOR, FLO L V72 .31 Oil Expeller Exam, Routine 05/13/2010 [employer]EL PLUM[employer] INSPECTOR, GODWIN V72 .31 Oil Expeller Exam, Routine 05/13/2010 [employer] INSPECTOR, GODWIN V72 .31 Oil Expeller Exam, Routine 05/13/2010 MADL PLUMBING INSPECTOR, FLO L V72 .31 Oil Expeller Exam, Routine 05/13/2010 MADL PLUMBING INSPECTOR, FLO L V72 .31 Oil Expeller Exam, Routine 05/13/2010 [employer] INSPECTOR, GODWIN V72 .31 Oil Expeller Exam, Routine 05/13/2010 ELIAS DENNIS APRN A V72.31 Oil Expeller Exam, Routine 05/13/2010 [facility], DEMOND R V72.31 Oil Expeller Exam, Routine 05/13/2010 MADL PLUMBING INSPECTOR, FLO L V72 .31 Oil Expeller Exam, Routine 05/13/2010 SILVERIOCARLENE JENKINSJOSE Shin V72.31 Oil Expeller Exam, Routine 05/13/2010 [facility], DEMOND R V72.31 Oil Expeller Exam, Routine 05/13/2010 [facility], DEMOND R V72.31 Oil Expeller Exam, Routine 05/13/2010 ROEL PLUMBING INSPECTORGODWIN V72 .31 Oil Expeller Exam, Routine 05/13/2010 MAR BLANTON NICOLA Workman V72.31 Oil Expeller Exam, Routine 05/13/2010 ROEL PLUMBING INSPECTORGODWIN V72 .31 Oil Expeller Exam, Routine 05/13/2010 ROEL PLUMBING INSPECTOR, GODWIN V72 .31 Oil Expeller Exam, Routine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 Squamous Intraepithelial Lesion (lgsil) 01/25/2012 MADL PLUMBING INSPECTOR, FLO L 427 .9 Arrhythmia, Cardiac (sinus) 01/25/2012 MADL PLUMBING INSPECTOR, FLO L 786 .50 Unspecified Chest Pain 01/25/2012 MADL PLUMBING INSPECTOR, FLO L 795 .03 Papanicolaou Smear Of Cervix With Low Grade Squamous Intraepithelial Lesion (lgsil) 01/25/2012 ROEL PLUMBING INSPECTOR GODWIN 427 .9 Arrhythmia, Cardiac (sinus) 01/25/2012 ROEL PLUMBING INSPECTOR, GODWIN 786 .50 Unspecified Chest Pain 01/25/2012 ROEL PLUMBING INSPECTOR, GODWIN 795 .03 Papanicolaou Smear Of Cervix With Low Grade Squamous Intraepithelial Lesion (lgsil) 01/25/2012 SONNY MENG, ELIAS A 42 7.9 Arrhythmia, Cardiac (sinus) 01/25/2012 SONNY APRN, ELIAS A 786.50 Unspecified Chest Pain 01/25/2012 SONNY PLUMBING INSPECTOR, ELIAS A 795.03 Papanicolaou Smear Of Cervix With Low Gr elise Squamous Intraepithelial Lesion (lgsil) 01[facility]2012 [facility] 427.9 Arrhythmia, Cardiac (sinus) 01/25/2012 [facility] 786.50 Unspecified Chest Pain 01/25/2012 [facility] 795.03 Papanicolaou Smear Of Cervix With Low Gr elise Squamous Intraepithelial Lesion (lgsil) 01/25/2012 LISA PLUMBING INSPECTOR, FLO L 427 .9 Arrhythmia, Cardiac (sinus) 01/25/2012 BRYAN PLUMBING INSPECTOR, FLO L 786 .50 Unspecified Chest Pain 01/25/2012 LISA PLUMBING INSPECTOR, FLO L 795 .03 Papanicolaou Smear Of Cervix With Low Grade Squamous Intraepithelial Lesion (lgsil) 01/25/2012 NUSRAT JENKINSSJOSE 42 7.9 Arrhythmia, Cardiac (sinus) 01/25/2012 SILVERIO DDS JOSE 786.50 Unspecified Chest Pain 01/25/2012 NUSRAT DDSJOSE 795.03 Papanicolaou Smear Of Cervix With Low Gr elise Squamous Intraepithelial Lesion (lgsil) 01/25/2012 ANGELA LSCS, DEMOND R 427.9 Arrhythmia, Cardiac (sinus) 01/25/2012 ANGELA LSCS, DEMOND R 786.50 Unspecified Chest Pain 01/25/2012 ANGELA LSCS, DEMOND R 795.03 Papanicolaou Smear Of Cervix With Low Gr elise Squamous Intraepithelial Lesion (lgsil) 01/25/2012 ANGELA LSCS, DEMOND R 427.9 Arrhythmia, Cardiac (sinus) 01/25/2012 ANGELA LSCS, DEMOND R 786.50 Unspecified Chest Pain 01/25/2012 ANGELA LSCS, DEMOND R 795.03 Papanicolaou Smear Of Cervix With Low Gr elise Squamous Intraepithelial Lesion (lgsil) 01/25/2012 ROEL PLUMBING INSPECTOR, GODWIN 427 .9 Arrhythmia, Cardiac (sinus) 01/25/2012 ROEL PLUMBING INSPECTOR, GODWIN 786 .50 Unspecified Chest Pain 01/25/2012 ROEL PLUMBING INSPECTOR, GODWIN 795 .03 Papanicolaou Smear Of Cervix With Low Grade Squamous Intraepithelial Lesion (lgsil) 01/25/2012 NICOLA MANUEL DO K 427.9 Arrhythmia, Cardiac (sinus) 01/25/2012 MAR [facility]ON NICOLA K 786.50 Unspecified Chest Pain 01/25/2012 MAR BL[facility]ON NICOLA K 795.03 Papanicolaou Smear Of Cervix With Low Grade Squamous Intraepithelial Lesion (lgsil) 01/25/2012 ROEL PLUMBING INSPECTOR, GODWIN 427 .9 Arrhythmia, Cardiac (sinus) 01/25/2012 ROEL PLUMBING INSPECTOR, GODWIN 786 .50 Unspecified Chest Pain 01/25/2012 ROEL PLUMBING INSPECTOR, GODWIN 795 .03 Papanicolaou Smear Of Cervix With Low Grade Squamous Intraepithelial Lesion (lgsil) 01/25/2012 ROEL PLUMBING INSPECTOR, GODWIN 427 .9 Arrhythmia, Cardiac (sinus) 01/25/2012 ROEL PLUMBING INSPECTOR, GODWIN 786 .50 Unspecified Chest Pain 01/25/2012 ROEL PLUMBING INSPECTOR, GODWIN 795 .03 Papanicolaou Smear Of Cervix With Low Grade Squamous Intraepithelial Lesion (lgsil) 06/25/2012 WOLF JAMA MD 724.5 Backache Unspecified 06/25/2012 WOLF JAMA MD 789.0 0 Abdominal Pain Unspecified Site 06/25/2012 WOLF JAMA MD 724.5 Backache Unspecified 06/25/2012 EVITA JONES, WOLF 789.0 0 Abdominal Pain Unspecified Site 06/25/2012 724.5 Back ache Unspecified 06/25/2012 789.00 Abd ominal Pain Unspecified Site 06/25/2012 NICOLA MANUEL DO 724.5 Backache Unspecified 06/25/2012 NICOLA MANUEL DO 789.00 Abdominal Pain Unspecified Site 06/25/2012 JASON SOLANO DO 724 .5 Backache Unspecified 06/25/2012 JASON SOLANO DO 789 .00 Abdominal Pain Unspecified Site 06/25/2012 724.5 Back ache Unspecified 06/25/2012 789.00 Abd ominal Pain Unspecified Site 06/25/2012 724.5 Back ache Unspecified 06/25/2012 789.00 Abd ominal Pain Unspecified Site 06/25/2012 724.5 Back ache Unspecified 06/25/2012 789.00 Abd ominal Pain Unspecified Site 06/25/2012 724.5 Back ache Unspecified 06/25/2012 789.00 Abd ominal Pain Unspecified Site 06/25/2012 724.5 Back ache Unspecified 06/25/2012 789.00 Abd ominal Pain Unspecified Site 06/25/2012 724.5 Back ache Unspecified 06/25/2012 789.00 abd ominal pain 06/25/2012 724.5 Back ache Unspecified 06/25/2012 789.00 abd ominal pain 06/25/2012 724.5 Back ache Unspecified 06/25/2012 789.00 abd ominal pain 06/25/2012 724.5 Back ache Unspecified 06/25/2012 789.00 abd ominal pain 06/25/2012 724.5 Back ache Unspecified 06/25/2012 789.00 abd ominal pain 06/25/2012 724.5 Back ache Unspecified 06/25/2012 789.00 abd ominal pain 06/25/2012 NICOLA MANUEL DO 724.5 Backache Unspecified 06/25/2012 NICOLA MANUEL DO 789.00 abdominal pain 06/25/2012 JASON HUNTER APRN 724.5 Backache Unspecified 06/25/2012 JASON HUNTER APRN 789.00 abdominal pain 06/25/2012 WOLF JAMA MD 724.5 Backache Unspecified 06/25/2012 WOLF JAMA MD 789.0 0 abdominal pain 06/25/2012 MANUEL DO, NICOLA K 724.5 Backache Unspecified 06/25/2012 MANUEL DO, NICOLA K 789.00 abdominal pain 06/25/2012 WHITE DDS, KELY J 72 4.5 Backache Unspecified 06/25/2012 WHITE DDS, KELY J 789.00 abdominal pain 06/25/2012 JASON HUNTER APRN 724.5 Backache Unspecified 06/25/2012 JASON HUNTER APRN 789.00 abdominal pain 06/25/2012 JASON HUNTER APRN 724.5 Backache Unspecified 06/25/2012 JASON HUNTER APRN D 789.00 abdominal pain 06/25/2012 JASON HUNTER APRN 724.5 Backache Unspecified 06/25/2012 JASON HUNTER APRN D 789.00 abdominal pain 06/25/2012 WOLF JAMA MD 724.5 Backache Unspecified 06/25/2012 WOLF JAMA MD 789.0 0 abdominal pain 06/25/2012 ROEL PLUMBING INSPECTOR, GODWIN 724 .5 Backache Unspecified 06/25/2012 ROEL PLUMBING INSPECTOR, GODWIN 789 .00 abdominal pain 06/25/2012 BRYANL PLUMBING INSPECTOR, FLO L 724 .5 Backache Unspecified 06/25/2012 MADL PLUMBING INSPECTOR, FLO L 789 .00 abdominal pain 06/25/2012 ROEL PLUMBING INSPECTOR, GODWIN 724 .5 Backache Unspecified 06/25/2012 ROEL PLUMBING INSPECTOR, GODWIN 789 .00 abdominal pain 06/25/2012 MADL PLUMBING INSPECTOR, FLO L 724 .5 Backache Unspecified 06/25/2012 MADL PLUMBING INSPECTOR, FLO L 789 .00 abdominal pain 06/25/2012 ROEL PLUMBING INSPECTOR, GODWIN 724 .5 Backache Unspecified 06/25/2012 ROEL PLUMBING INSPECTOR, GODWIN 789 .00 abdominal pain 06/25/2012 ROEL PLUMBING INSPECTOR, GODWIN 724 .5 Backache Unspecified 06/25/2012 ROEL PLUMBING INSPECTOR, GODWIN 789 .00 abdominal pain 06/25/2012 MADL PLUMBING INSPECTOR, FLO L 724 .5 Backache Unspecified 06/25/2012 MADL PLUMBING INSPECTOR, FLO L 789 .00 abdominal pain 06/25/2012 MADL PLUMBING INSPECTOR, FLO L 724 .5 Backache Unspecified 06/25/2012 MADL PLUMBING INSPECTOR, FLO L 789 .00 abdominal pain 06/25/2012 ROEL PLUMBING INSPECTOR, GODWIN 724 .5 Backache Unspecified 06/25/2012 ROEL PLUMBING INSPECTOR, GODWIN 789 .00 abdominal pain 06/25/2012 SONNY PLUMBING INSPECTOR, ELIAS A 72 4.5 Backache Unspecified 06/25/2012 SONNY PLUMBING INSPECTOR, ELIAS A 789.00 abdominal pain 06/25/2012 [facility], DEMOND R 724.5 Backache Unspecified 06/25/2012 [facility], DEMOND R 789.00 abdominal pain 06/25/2012 MADL PLUMBING INSPECTOR, FLO L 724 .5 Backache Unspecified 06/25/2012 MADL PLUMBING INSPECTOR, FLO L 789 .00 abdominal pain 06/25/2012 SILVERIO DDS, JOSE 72 4.5 Backache Unspecified 06/25/2012 SILVERIO DDS, JOSE 789.00 abdominal pain 06/25/2012 [facility], DEMOND R 724.5 Backache Unspecified 06/25/2012 [facility], DEMOND R 789.00 abdominal pain 06/25/2012 [facility], DEMOND R 724.5 Backache Unspecified 06/25/2012 [facility], DEMOND R 789.00 abdominal pain 06/25/2012 ROEL PLUMBING INSPECTOR, GODWIN 724 .5 Backache Unspecified 06/25/2012 ROEL PLUMBING INSPECTOR, GODWIN 789 .00 abdominal pain 06/25/2012 MANUEL DO, NICOLA K 724.5 Backache Unspecified 06/25/2012 MANUEL DO, NICOLA K 789.00 abdominal pain 06/25/2012 ROEL PLUMBING INSPECTOR, GODWIN 724 .5 Backache Unspecified 06/25/2012 ROEL PLUMBING INSPECTOR, GODWIN 789 .00 abdominal pain 06/25/2012 GODWIN SEVILLA APRN 724 .5 Backache Unspecified 06/25/2012 GODWIN SEVILLA APRN 789 .00 abdominal pain 06/27/2012 WOLF JAMA MD 785.1 Palpitations 06/27/2012 WOLF JAMA MD 786.0 5 Shortness Of Breath 06/27/2012 WOLF JAMA MD 786.5 0 Chest Pain 06/27/2012 WOLF JAMA MD 785.1 Palpitations 06/27/2012 WOLF JAMA MD 786.0 5 Shortness Of Breath 06/27/2012 WOLF JAMA MD 786.5 0 Chest Pain 06/27/2012 785.1 Palp itations 06/27/2012 786.05 Nelsy rtness Of Breath 06/27/[address] Pain 06/27/2012 MANUEL NICOLA BLANTON K 785.1 Palpitations 06/27/2012 NICOLA MANUEL DO K 786.05 Shortness Of Breath 06/27/2012 NICOLA MANUEL DO K 786.50 Chest Pain 06/27/2012 JASON SOLANO DO F 785 .1 Palpitations 06/27/2012 JASON SOLANO DO F 786 .05 Shortness Of Breath 06/27/2012 JASON SOLANO DO F 786 .50 Chest Pain 06/27/2012 785.1 Palp itations 06/27/2012 786.05 Nelsy rtness Of Breath 06/27/[address] Pain 06/27/2012 785.1 Palp itations 06/27/2012 786.05 Nelsy rtness Of Breath 06/27/[address] Pain 06/27/2012 785.1 Palp itations 06/27/2012 786.05 Nelsy rtness Of Breath 06/27/[address] Pain 06/27/2012 785.1 Palp itations 06/27/2012 786.05 Nelsy rtness Of Breath 06/27/[address] Pain 06/27/2012 785.1 Palp itations 06/27/2012 786.05 Nelsy rtness Of Breath 06/27/[address] Pain 06/27/2012 785.1 Palp itations 06/27/2012 786.05 Nelsy rtness Of Breath 06/27/[address] Pain 06/27/2012 785.1 Palp itations 06/27/2012 786.05 Nelsy rtness Of Breath 06/27/[address] Pain 06/27/2012 785.1 Palp itations 06/27/2012 786.05 Nelsy rtness Of Breath 06/27/[address] Pain 06/27/2012 785.1 Palp itations 06/27/2012 786.05 Nelsy rtness Of Breath 06/27/[address] Pain 06/27/2012 785.1 Palp itations 06/27/2012 786.05 Nelsy rtness Of Breath 06/27/[address] Pain 06/27/2012 785.1 Palp itations 06/27/2012 786.05 Nelsy rtness Of Breath 06/27/[address] Pain 06/27/2012 MAR BLANTON NICOLA K 785.1 Palpitations 06/27/2012 MAR BLANTON NICOLA K 786.05 Shortness Of Breath 06/27/2012 MAR BLANTON NICOLA K 786.50 Chest Pain 06/27/2012 JASON HUNTER APRN 785.1 Palpitations 06/27/2012 JASON HUNTER APRN 786.05 Shortness Of Breath 06/27/2012 JASON HUNTER APRN 786.50 Chest Pain 06/27/2012 WOLF JAMA MD 785.1 Palpitations 06/27/2012 WOLF JAMA MD 786.0 5 Shortness Of Breath 06/27/2012 WOLF AJMA MD 786.5 0 Chest Pain 06/27/2012 MARAL MANUEL DOA K 785.1 Palpitations 06/27/2012 MANUEL MARAL BLANTONA K 786.05 Shortness Of Breath 06/27/2012 MANUEL DO NICOLA K 786.50 Chest Pain 06/27/2012 WHITE DDSKELY J 78 5.1 Palpitations 06/27/2012 WHITE DDSKELY 786.05 Shortness Of Breath 06/27/2012 WHITE DDSKELY J 786.50 Chest Pain 06/27/2012 JASON HUNTER APRN 785.1 Palpitations 06/27/2012 GARTON PLUMBING INSPECTOR, JASON D 786.05 Shortness Of Breath 06/27/2012 DALE PLUMBING INSPECTORJASON Kirkpatrick D 786.50 Chest Pain 06/27/2012 DALE JASON MENG D 785.1 Palpitations 06/27/2012 DALE PLUMBING INSPECTORJASON Kirkpatrick D 786.05 Shortness Of Breath 06/27/2012 DALE PLUMBING INSPECTORJASON Kirkpatrick D 786.50 Chest Pain 06/27/2012 DALE JASON MENG D 785.1 Palpitations 06/27/2012 DAEL PLUMBING INSPECTORJASON Kirkpatrick D 786.05 Shortness Of Breath 06/27/2012 DALE PLUMBING INSPECTORJASON Kirkpatrick D 786.50 Chest Pain 06/27/2012 WOLF JAMA MD 785.1 Palpitations 06/27/2012 WOLF JAMA MD 786.0 5 Shortness Of Breath 06/27/2012 WOLF JAMA MD 786.5 0 Chest Pain 06/27/2012 ROEL PLUMBING INSPECTOR, GODWIN 785 .1 Palpitations 06/27/2012 ROEL PLUMBING INSPECTOR, GODWIN 786 .05 Shortness Of Breath 06/27/2012 ROEL PLUMBING INSPECTOR, GODWIN 786 .50 Chest Pain 06/27/2012 MADL PLUMBING INSPECTOR, FLO L 785 .1 Palpitations 06/27/2012 MADL PLUMBING INSPECTOR, FLO L 786 .05 Shortness Of Breath 06/27/2012 MADL PLUMBING INSPECTOR, FLO L 786 .50 Chest Pain 06/27/2012 ROEL PLUMBING INSPECTOR, GODWIN 785 .1 Palpitations 06/27/2012 ROEL PLUMBING INSPECTOR, GODWIN 786 .05 Shortness Of Breath 06/27/2012 ROEL PLUMBING INSPECTOR, GODWIN 786 .50 Chest Pain 06/27/2012 MADL PLUMBING INSPECTOR, FLO L 785 .1 Palpitations 06/27/2012 MADL PLUMBING INSPECTOR, FLO L 786 .05 Shortness Of Breath 06/27/2012 MADL PLUMBING INSPECTOR, FLO L 786 .50 Chest Pain 06/27/2012 ROEL PLUMBING INSPECTOR, GODWIN 785 .1 Palpitations 06/27/2012 ROEL PLUMBING INSPECTOR, GODWIN 786 .05 Shortness Of Breath 06/27/2012 ROEL PLUMBING INSPECTOR, GODWIN 786 .50 Chest Pain 06/27/2012 ROEL PLUMBING INSPECTOR, GODWIN 785 .1 Palpitations 06/27/2012 ROEL PLUMBING INSPECTOR, GODWIN 786 .05 Shortness Of Breath 06/27/2012 ROEL PLUMBING INSPECTOR, GODWIN 786 .50 Chest Pain 06/27/2012 MADL PLUMBING INSPECTOR, FLO L 785 .1 Palpitations 06/27/2012 MADL PLUMBING INSPECTOR, FLO L 786 .05 Shortness Of Breath 06/27/2012 MADL PLUMBING INSPECTOR, FLO L 786 .50 Chest Pain 06/27/2012 MADL PLUMBING INSPECTOR, FLO L 785 .1 Palpitations 06/27/2012 MADL PLUMBING INSPECTOR, FLO L 786 .05 Shortness Of Breath 06/27/2012 MADL PLUMBING INSPECTOR, FLO L 786 .50 Chest Pain 06/27/2012 ROEL PLUMBING INSPECTOR, GODWIN 785 .1 Palpitations 06/27/2012 ROEL PLUMBING INSPECTOR, GODWIN 786 .05 Shortness Of Breath 06/27/2012 ROEL PLUMBING INSPECTOR, GODWIN 786 .50 Chest Pain 06/27/2012 SONNY PLUMBING INSPECTOR, ELIAS A 78 5.1 Palpitations 06/27/2012 SONNY PLUMBING INSPECTOR, ELIAS A 786.05 Shortness Of Breath 06/27/2012 SONNY PLUMBING INSPECTOR, ELIAS A 786.50 Chest Pain 06/27/2012 [facility], DEMOND R 785.1 Palpitations 06/27/2012 [facility], DEMOND R 786.05 Shortness Of Breath 06/27/2012 [facility], DEMOND R 786.50 Chest Pain 06/27/2012 MADL PLUMBING INSPECTOR, FLO L 785 .1 Palpitations 06/27/2012 MADL PLUMBING INSPECTOR, FLO L 786 .05 Shortness Of Breath 06/27/2012 MADL PLUMBING INSPECTOR, FLO L 786 .50 Chest Pain 06/27/2012 SILVERIO DDS, JOSE 78 5.1 Palpitations 06/27/2012 SILVERIO DDS, JOSE 786.05 Shortness Of Breath 06/27/2012 SILVERIO DDS, JOSE 786.50 Chest Pain 06/27/2012 [facility], DEMOND R 785.1 Palpitations 06/27/2012 [facility], DEMOND R 786.05 Shortness Of Breath 06/27/2012 ANGELA LSCS, DEMOND R 786.50 Chest Pain 06/27/2012 ANGELA LSCS, DEMOND R 785.1 Palpitations 06/27/2012 ANGELA LSCS, DEMOND R 786.05 Shortness Of Breath 06/27/2012 ANGELA LSCS, DEMOND R 786.50 Chest Pain 06/27/2012 ROEL PLUMBING INSPECTOR, GODWIN 785 .1 Palpitations 06/27/2012 ROEL PLUMBING INSPECTOR, GODWIN 786 .05 Shortness Of Breath 06/27/2012 ROEL PLUMBING INSPECTOR, GODWIN 786 .50 Chest Pain 06/27/2012 MANUEL DO, NICOLA K 785.1 Palpitations 06/27/2012 MANUEL DO, NICOLA K 786.05 Shortness Of Breath 06/27/2012 MANUEL DO, NICOLA K 786.50 Chest Pain 06/27/2012 ROEL PLUMBING INSPECTOR, GODWIN 785 .1 Palpitations 06/27/2012 ROEL PLUMBING INSPECTOR, GODWIN 786 .05 Shortness Of Breath 06/27/2012 ROEL PLUMBING INSPECTOR, GODWIN 786 .50 Chest Pain 06/27/2012 ROEL PLUMBING INSPECTOR, GODWIN 785 .1 Palpitations 06/27/2012 ROEL PLUMBING INSPECTOR, GODWIN 786 .05 Shortness Of Breath 06/27/2012 ROEL PLUMBING INSPECTOR, GODWIN 786 .50 Chest Pain 08/07/2012 WOLF JAMA MD 617.9 ENDOMETRIOSIS SITE UNSPECIFIED 08/07/2012 WOLF JAMA MD 625.9 Pelvic Pain 08/07/2012 WOLF JAMA MD V05.3 Hep B (adult) Dx 08/07/2012 WOLF JAMA MD V76.2 Cervical Cancer Screening (pap Smear) 08/07/2012 WOLF JAMA MD 617.9 ENDOMETRIOSIS SITE UNSPECIFIED 08/07/2012 WLOF JAMA MD 625.9 Pelvic Pain 08/07/2012 WOLF JAMA MD V05.3 Hep B (adult) Dx 08/07/2012 WOLF JAMA MD V76.2 Cervical Cancer Screening (pap Smear) 08/07/2012 617.9 ENDO METRIOSIS SITE UNSPECIFIED 08/07/2012 625.9 Pelv ic Pain 08/07/2012 V05.3 Hep B (adult) Dx 08/07/2012 V76.2 Cerv ical Cancer Screening (pap Smear) 08/07/2012 MAR BLANTONNICOLA K 617.9 ENDOMETRIOSIS SITE UNSPECIFIED 08/07/2012 MAR BLANTONNICOLA K 625.9 Pelvic Pain 08/07/2012 MAR BLANTONNICOLA K V05.3 Hep B (adult) Dx 08/07/2012 MAR BLANTON NICOLA K V76.2 Cervical Cancer Screening (pap Smear) 08/07/2012 JASON SOLANO DO F 617 .9 ENDOMETRIOSIS SITE UNSPECIFIED 08/07/2012 XIOMARA BLANTON JASON F 625 .9 Pelvic Pain 08/07/2012 JASON SOLANO DO V05 .3 Hep B (adult) Dx 08/07/2012 JASON SOLANO DO F V76 .2 Cervical Cancer Screening (pap Smear) 08/07/2012 617.9 ENDO METRIOSIS SITE UNSPECIFIED 08/07/2012 625.9 Pelv ic Pain 08/07/2012 V05.3 Hep B (adult) Dx 08/07/2012 V76.2 Cerv ical Cancer Screening (pap Smear) 08/07/2012 617.9 ENDO METRIOSIS SITE UNSPECIFIED 08/07/2012 625.9 Pelv ic Pain 08/07/2012 V05.3 Hep B (adult) Dx 08/07/2012 V76.2 Cerv ical Cancer Screening (pap Smear) 08/07/2012 617.9 ENDO METRIOSIS SITE UNSPECIFIED 08/07/2012 625.9 Pelv ic Pain 08/07/2012 V05.3 Hep B (adult) Dx 08/07/2012 V76.2 Cerv ical Cancer Screening (pap Smear) 08/07/2012 617.9 ENDO METRIOSIS SITE UNSPECIFIED 08/07/2012 625.9 Pelv ic Pain 08/07/2012 V05.3 Hep B (adult) Dx 08/07/2012 V76.2 Cerv ical Cancer Screening (pap Smear) 08/07/2012 617.9 ENDO METRIOSIS SITE UNSPECIFIED 08/07/2012 625.9 Pelv ic Pain 08/07/2012 V05.3 Hep B (adult) Dx 08/07/2012 V76.2 Cerv ical Cancer Screening (pap Smear) 08/07/2012 617.9 ENDO METRIOSIS SITE UNSPECIFIED 08/07/2012 625.9 Pelv ic Pain 08/07/2012 V05.3 Hep B (adult) Dx 08/07/2012 V76.2 Cerv ical Cancer Screening (pap Smear) 08/07/2012 617.9 ENDO METRIOSIS SITE UNSPECIFIED 08/07/2012 625.9 Pelv ic Pain 08/07/2012 V05.3 Hep B (adult) Dx 08/07/2012 V76.2 Cerv ical Cancer Screening (pap Smear) 08/07/2012 617.9 ENDO METRIOSIS SITE UNSPECIFIED 08/07/2012 625.9 Pelv ic Pain 08/07/2012 V05.3 Hep B (adult) Dx 08/07/2012 V76.2 Cerv ical Cancer Screening (pap Smear) 08/07/2012 617.9 ENDO METRIOSIS SITE UNSPECIFIED 08/07/2012 625.9 Pelv ic Pain 08/07/2012 V05.3 Hep B (adult) Dx 08/07/2012 V76.2 Cerv ical Cancer Screening (pap Smear) 08/07/2012 617.9 ENDO METRIOSIS SITE UNSPECIFIED 08/07/2012 625.9 Pelv ic Pain 08/07/2012 V05.3 Hep B (adult) Dx 08/07/2012 V76.2 Cerv ical Cancer Screening (pap Smear) 08/07/2012 617.9 ENDO METRIOSIS SITE UNSPECIFIED 08/07/2012 625.9 Pelv ic Pain 08/07/2012 V05.3 Hep B (adult) Dx 08/07/2012 V76.2 Cerv ical Cancer Screening (pap Smear) 08/07/2012 NICOLA MANUEL [...] NICOLA K 625.9 Pelvic Pain 08/07/2012 MANUEL DO NICOLA K V05.3 Hep B (adult) Dx 08/07/2012 MANUEL DO, NICOLA K V76.2 Cervical Cancer Screening (pap Smear) 08/07/2012 WHITE DDS, KELY J 61 7.9 ENDOMETRIOSIS SITE UNSPECIFIED 08/07/2012 WHITE DDS, KELY J 62 5.9 Pelvic Pain 08/07/2012 WHITE DDSJASMINON J V0 5.3 Hep B (adult) Dx 08/07/2012 WHITE DDSKELY J V7 6.2 Cervical Cancer Screening (pap Smear) 08/07/2012 JASON [...] Cervical Cancer Screening (pap Smear) 08/07/2012 ROEL PLUMBING INSPECTOR, GODWIN 617 .9 ENDOMETRIOSIS SITE UNSPECIFIED 08/07/2012 ROEL PLUMBING INSPECTOR, GODWIN 625 .9 Pelvic Pain 08/07/2012 ROEL PLUMBING INSPECTOR, GODWIN V05 .3 Hep B (adult) Dx 08/07/2012 ROEL PLUMBING INSPECTOR, GODWIN V76 .2 Cervical Cancer Screening (pap Smear) 08/07/2012 MADL PLUMBING INSPECTOR, FLO L 617 .9 ENDOMETRIOSIS SITE UNSPECIFIED 08/07/2012 MADL PLUMBING INSPECTOR, FLO L 625 .9 Pelvic Pain 08/07/2012 MADL PLUMBING INSPECTOR, FLO L V05 .3 Hep B (adult) Dx 08/07/2012 MADL PLUMBING INSPECTOR, FLO L V76 .2 Cervical Cancer Screening (pap Smear) 08/07/2012 ROEL PLUMBING INSPECTOR, GODWIN 617 .9 ENDOMETRIOSIS SITE UNSPECIFIED 08/07/2012 ROEL PLUMBING INSPECTOR, GODWIN 625 .9 Pelvic Pain 08/07/2012 ROEL PLUMBING INSPECTOR, GODWIN V05 .3 Hep B (adult) Dx 08/07/2012 ROEL PLUMBING INSPECTOR, GODWIN V76 .2 Cervical Cancer Screening (pap Smear) 08/07/2012 MADL PLUMBING INSPECTOR, FLO L 617 .9 ENDOMETRIOSIS SITE UNSPECIFIED 08/07/2012 MADL PLUMBING INSPECTOR, FLO L 625 .9 Pelvic Pain 08/07/2012 MADL PLUMBING INSPECTOR, FLO L V05 .3 Hep B (adult) Dx 08/07/2012 MADL PLUMBING INSPECTOR, FLO L V76 .2 Cervical Cancer Screening (pap Smear) 08/07/2012 ROEL PLUMBING INSPECTOR, GODWIN 617 .9 ENDOMETRIOSIS SITE UNSPECIFIED 08/07/2012 [employer], GODWIN 625 .9 Pelvic Pain 08/07/2012 [employer], GODWIN V05 .3 Hep B (adult) Dx 08/07/2012 [employer], GODWIN V76 .2 Cervical Cancer Screening (pap Smear) 08/07/2012 [employer], GODWIN 617 .9 ENDOMETRIOSIS SITE UNSPECIFIED 08/07/2012 [employer] INSPECT[employer], GODWIN 625 .9 Pelvic Pain 08/07/2012 [employer]OR, GODWIN V05 .3 Hep B (adult) Dx 08/07/2012 [employer] INSPECT[employer], GODWIN V76 .2 Cervical Cancer Screening (pap Smear) 08/07/2012 [employer] INSPECTOR, FLO L 617 .9 ENDOMETRIOSIS SITE UNSPECIFIED 08/07/2012 [employer] INSPECTOR, FLO L 625 .9 Pelvic Pain 08/07/2012 [employer] INSPECTOR, FLO L V05 .3 Hep B (adult) Dx 08/07/2012 [employer] INSPECTOR, FLO L V76 .2 Cervical Cancer Screening (pap Smear) 08/07/2012 [employer] INSPECTOR, FLO L 617 .9 ENDOMETRIOSIS SITE UNSPECIFIED 08/07/2012 [employer] INSPECTOR, FLO L 625 .9 Pelvic Pain 08/07/2012 [employer] INSPECTOR, FLO L V05 .3 Hep B (adult) Dx 08/07/2012 [employer] INSPECTOR, FLO L V76 .2 Cervical Cancer Screening (pap Smear) 08/07/2012 [employer] INSPECTOR, GODWIN 617 .9 ENDOMETRIOSIS SITE UNSPECIFIED 08/07/2012 [employer] INSPECTOR, GODWIN 625 .9 Pelvic Pain 08/07/2012 [employer] INSPECTOR, GODWIN V05 .3 Hep B (adult) Dx 08/07/2012 RO[employer] INSPECTOR, GODWIN V76 .2 Cervical Cancer Screening (pap Smear) 08/07/2012 SONNY PLUMBING INSPECTOR, ELIAS A 61 7.9 ENDOMETRIOSIS SITE UNSPECIFIED 08/07/2012 SONNY [employer]UMBING INSPECTOR, ELIAS A 62 5.9 Pelvic Pain 08/07/2012 SONNY [employer] INSPECTOR, ELIAS A V0 5.3 Hep B (adult) Dx 08/07/2012 SONNY [employer] INSPECTOR, ELIAS A V7 6.2 Cervical Cancer Screening (pap Smear) 08/07/2012 [facility], DEMOND Fernando 617.9 ENDOMETRIOSIS SITE UNSPECIFIED 08/07/2012 [facility], DEMOND R 625.9 Pelvic Pain 08/07/2012 [facility], DEMOND R V05.3 Hep B (adult) Dx 08/07/2012 [facility], DEMOND R V76.2 Cervical Cancer Screening (pap Smear) 08/07/2012 [employer] INSPECTOR, FLO L 617 .9 ENDOMETRIOSIS SITE UNSPECIFIED 08/07/2012 [employer] INSPECTOR, FLO L 625 .9 Pelvic Pain 08/07/2012 [employer] INSPECTOR, FLO L V05 .3 Hep B (adult) Dx 08/07/2012 [employer] INSPECTOR, FLO L V76 .2 Cervical Cancer Screening (pap Smear) 08/07/2012 [facility], JOSE 61 7.9 ENDOMETRIOSIS SITE UNSPECIFIED 08/07/2012 [facility] DDS, JOSE 62 5.9 Pelvic Pain 08/07/2012 [facility], JOSE V0 5.3 Hep B (adult) Dx 08/07/2012 [facility]DS, JOSE V7 6.2 Cervical Cancer Screening (pap Smear) 08/07/2012 [facility], DEMOND R 617.9 ENDOMETRIOSIS SITE UNSPECIFIED 08/07/2012 [facility], DEMOND R 625.9 Pelvic Pain 08/07/2012 [facility], DEMOND R V05.3 Hep B (adult) Dx 08/07/2012 [facility], DEMOND R V76.2 Cervical Cancer Screening (pap Smear) 08/07/2012 [facility], DEMOND R 617.9 ENDOMETRIOSIS SITE UNSPECIFIED 08/07/2012 [facility], DEMOND R 625.9 Pelvic Pain 08/07/2012 [facility], EDMOND R V05.3 Hep B (adult) Dx 08/07/2012 [facility], DEMOND R V76.2 Cervical Cancer Screening (pap Smear) 08/07/2012 ROEL PLUMBING INSPECTOR, GODWIN 617 .9 ENDOMETRIOSIS SITE UNSPECIFIED 08/07/2012 ROEL PLUMBING INSPECTOR, GODWIN 625 .9 Pelvic Pain 08/07/2012 ROEL PLUMBING INSPECTOR, GODWIN V05 .3 Hep B (adult) Dx 08/07/2012 ROEL PLUMBING INSPECTOR, GODWIN V76 .2 Cervical Cancer Screening (pap Smear) 08/07/2012 NICOLA MANUEL DO 617.9 ENDOMETRIOSIS SITE UNSPECIFIED 08/07/2012 MAR NICOLA BLANTON K 625.9 Pelvic Pain 08/07/2012 MANUEL NICOLA BLANTON V05.3 Hep B (adult) Dx 08/07/2012 MANUEL NICOLA BLANTON V76.2 Cervical Cancer Screening (pap Smear) 08/07/2012 ROEL PLUMBING INSPECTOR, GODWIN 617 .9 ENDOMETRIOSIS SITE UNSPECIFIED 08/07/2012 ROEL PLUMBING INSPECTOR, GODWIN 625 .9 Pelvic Pain 08/07/2012 ROEL PLUMBING INSPECTOR, GODWIN V05 .3 Hep B (adult) Dx 08/07/2012 ROEL PLUMBING INSPECTOR, GODWIN V76 .2 Cervical Cancer Screening (pap Smear) 08/07/2012 ROEL PLUMBING INSPECTOR, GODWIN 617 .9 ENDOMETRIOSIS SITE UNSPECIFIED 08/07/2012 ROEL PLUMBING INSPECTOR, GODWIN 625 .9 Pelvic Pain 08/07/2012 ROEL PLUMBING INSPECTOR, GODWIN V05 .3 Hep B (adult) Dx 08/07/2012 ROEL PLUMBING INSPECTOR, GODWIN V76 .2 Cervical Cancer Screening (pap Smear) 09/28/2012 WOLF JAMA MD 558.9 OTHER AND UNSPECIFIED NONINFECTIOUS GASTROENTERITIS AND COLITIS 09/28/2012 WOLF JAMA MD 558.9 OTHER AND UNSPECIFIED NONINFECTIOUS GASTROENTERITIS AND COLITIS 09/28/2012 558.9 OTHE R AND UNSPECIFIED NONINFECTIOUS GASTROENTERITIS AND COLITIS 09/28/2012 NICOLA MANUEL DO 558.9 OTHER AND UNSPECIFIED NONINFECTIOUS GASTROENTERITIS AND COLITIS 09/28/2012 JASON SOLANO DO 558 .9 OTHER AND UNSPECIFIED NONINFECTIOUS GASTROENTERITIS AND COLITIS 09/28/2012 558.9 OTHE R AND UNSPECIFIED NONINFECTIOUS GASTROENTERITIS AND COLITIS 09/28/2012 558.9 OTHE R AND UNSPECIFIED NONINFECTIOUS GASTROENTERITIS AND COLITIS 09/28/2012 558.9 OTHE R AND UNSPECIFIED NONINFECTIOUS GASTROENTERITIS AND COLITIS 09/28/2012 558.9 OTHE R AND UNSPECIFIED NONINFECTIOUS GASTROENTERITIS AND COLITIS 09/28/2012 558.9 OTHE R AND UNSPECIFIED NONINFECTIOUS GASTROENTERITIS AND COLITIS 09/28/2012 558.9 OTHE R AND UNSPECIFIED NONINFECTIOUS GASTROENTERITIS AND COLITIS 09/28/2012 558.9 OTHE R AND UNSPECIFIED NONINFECTIOUS GASTROENTERITIS AND COLITIS 09/28/2012 558.9 OTHE R AND UNSPECIFIED NONINFECTIOUS GASTROENTERITIS AND COLITIS 09/28/2012 558.9 OTHE R AND UNSPECIFIED NONINFECTIOUS GASTROENTERITIS AND COLITIS 09/28/2012 558.9 OTHE R AND UNSPECIFIED NONINFECTIOUS GASTROENTERITIS AND COLITIS 09/28/2012 558.9 OTHE R AND UNSPECIFIED NONINFECTIOUS GASTROENTERITIS AND COLITIS 09/28/2012 NICOLA MANUEL DO 558.9 OTHER AND UNSPECIFIED NONINFECTIOUS GASTROENTERITIS AND COLITIS 09/28/2012 JASON HUNTER APRN 558.9 OTHER AND UNSPECIFIED NONINFECTIOUS GASTROENTERITIS AN D COLITIS 09/28/2012 WOLF JAMA MD 558.9 OTHER AND UNSPECIFIED NONINFECTIOUS GASTROENTERITIS AND COLITIS 09/28/2012 NICOLA MANUEL DO 558.9 OTHER AND UNSPECIFIED NONINFECTIOUS GASTROENTERITIS AND COLITIS 09/28/2012 IDALIA DDS, KELY Dickens 55 8.9 OTHER AND UNSPECIFIED NONINFECTIOUS GASTROENTERITIS AND COLITIS 09/28/2012 JASON HUNTER APRN 558.9 OTHER AND UNSPECIFIED NONINFECTIOUS GASTROENTERITIS AN D COLITIS 09/28/2012 JASON HUNTER APRN 558.9 OTHER AND UNSPECIFIED NONINFECTIOUS GASTROENTERITIS AN D COLITIS 09/28/2012 JASON HUNTER APRN 558.9 OTHER AND UNSPECIFIED NONINFECTIOUS GASTROENTERITIS AN D COLITIS 09/28/2012 WOLF JAMA MD 558.9 OTHER AND UNSPECIFIED NONINFECTIOUS GASTROENTERITIS AND COLITIS 09/28/2012 GODWIN SEVILLA APRN 558 .9 OTHER AND UNSPECIFIED NONINFECTIOUS GASTROENTERITIS AND COLITIS 09/28/2012 FLO GONZALEZ APRN 558 .9 OTHER AND UNSPECIFIED NONINFECTIOUS GASTROENTERITIS AND COLITIS 09/28/2012 GODWIN SEVILLA APRN 558 .9 OTHER AND UNSPECIFIED NONINFECTIOUS GASTROENTERITIS AND COLITIS 09/28/2012 FLO GONZALEZ APRN 558 .9 OTHER AND UNSPECIFIED NONINFECTIOUS GASTROENTERITIS AND COLITIS 09/28/2012 GODWIN SEVILLA APRN 558 .9 OTHER AND UNSPECIFIED NONINFECTIOUS GASTROENTERITIS AND COLITIS 09/28/2012 GODWIN SEVILLA APRN 558 .9 OTHER AND UNSPECIFIED NONINFECTIOUS GASTROENTERITIS AND COLITIS 09/28/2012 MADL PLUMBING INSPECTOR, FLO L 558 .9 OTHER AND UNSPECIFIED NONINFECTIOUS GASTROENTERITIS AND COLITIS 09/28/2012 MADL PLUMBING INSPECTOR, FLO L 558 .9 OTHER AND UNSPECIFIED NONINFECTIOUS GASTROENTERITIS AND COLITIS 09/28/2012 ROEL PLUMBING INSPECTOR, GODWIN 558 .9 OTHER AND UNSPECIFIED NONINFECTIOUS GASTROENTERITIS AND COLITIS 09/28/2012 SONNY CANON, ELIAS A 55 8.9 OTHER AND UNSPECIFIED NONINFECTIOUS GASTROENTERITIS AND COLITIS 09/28/2012 [facility], DEMOND R 558.9 OTHER AND UNSPECIFIED NONINFECTIOUS GASTROENTERITIS AN D COLITIS 09/28/2012 MADL PLUMBING INSPECTOR, FLO L 558 .9 OTHER AND UNSPECIFIED NONINFECTIOUS GASTROENTERITIS AND COLITIS 09/28/2012 JOSE SILVERIO DDS 55 8.9 OTHER AND UNSPECIFIED NONINFECTIOUS GASTROENTERITIS AND COLITIS 09/28/2012 [facility], DEMOND R 558.9 OTHER AND UNSPECIFIED NONINFECTIOUS GASTROENTERITIS AN D COLITIS 09/28/2012 [facility], DEMOND R 558.9 OTHER AND UNSPECIFIED NONINFECTIOUS GASTROENTERITIS AN D COLITIS 09/28/2012 ROEL PLUMBING INSPECTOR, GODWIN 558 .9 OTHER AND UNSPECIFIED NONINFECTIOUS GASTROENTERITIS AND COLITIS 09/28/2012 NICOLA MANUEL DO 558.9 OTHER AND UNSPECIFIED NONINFECTIOUS GASTROENTERITIS AND COLITIS 09/28/2012 ROEL PLUMBING INSPECTOR, GODWIN 558 .9 OTHER AND UNSPECIFIED NONINFECTIOUS GASTROENTERITIS AND COLITIS 09/28/2012 ROEL PLUMBING INSPECTOR, GODWIN 558 .9 OTHER AND UNSPECIFIED NONINFECTIOUS GASTROENTERITIS AND COLITIS 11/29/2012 626.0 AMEN ORRHEA 11/29/2012 NICOLA MANUEL DO 626.0 AMENORRHEA 11/29/2012 JASON SOLANO DO 626 .0 AMENORRHEA 11/29/2012 626.0 AMEN ORRHEA 11/29/2012 626.0 AMEN ORRHEA 11/29/2012 626.0 AMEN ORRHEA 11/29/2012 626.0 AMEN ORRHEA 11/29/2012 626.0 AMEN ORRHEA 11/29/2012 626.0 AMEN ORRHEA 11/29/2012 626.0 AMEN ORRHEA 11/29/2012 626.0 AMEN ORRHEA 11/29/2012 626.0 AMEN ORRHEA 11/29/2012 626.0 AMEN ORRHEA 11/29/2012 626.0 AMEN ORRHEA 11/29/2012 NICOLA MANUEL DO K 626.0 AMENORRHEA 11/29/2012 JASON HUNTER APRN 626.0 AMENORRHEA 11/29/2012 WOLF JAMA MD 626.0 AMENORRHEA 11/29/2012 NICOLA MANUEL DO K 626.0 AMENORRHEA 11/29/2012 IDALIA BAKER, KELY Dickens 62 6.0 AMENORRHEA 11/29/2012 JASON HUNTER APRN 626.0 AMENORRHEA 11/29/2012 JASON HUNTER APRN 626.0 AMENORRHEA 11/29/2012 JASON HUNTER APRN 626.0 AMENORRHEA 11/29/2012 WOLF JAMA MD 626.0 AMENORRHEA 11/29/2012 ROEL PLUMBING INSPECTOR, GODWIN 626 .0 AMENORRHEA 11/29/2012 MADTima PLUMBING INSPECTOR, FLO L 626 .0 AMENORRHEA 11/29/2012 ROEL PLUMBING INSPECTOR, GODWIN 626 .0 AMENORRHEA 11/29/2012 MADL PLUMBING INSPECTOR, FLO L 626 .0 AMENORRHEA 11/29/2012 ROEL PLUMBING INSPECTOR, GODWIN 626 .0 AMENORRHEA 11/29/2012 ROEL PLUMBING INSPECTOR, GODWIN 626 .0 AMENORRHEA 11/29/2012 MADL PLUMBING INSPECTOR, FLO L 626 .0 AMENORRHEA 11/29/2012 MADL PLUMBING INSPECTOR, FLO L 626 .0 AMENORRHEA 11/29/2012 ROLE PLUMBING INSPECTOR, GODWIN 626 .0 AMENORRHEA 11/29/2012 SONNY PLUMBING INSPECTOR, ELIAS A 62 6.0 AMENORRHEA 11/29/2012 [facility], DEMOND R 626.0 AMENORRHEA 11/29/2012 MADL PLUMBING INSPECTOR, FLO L 626 .0 AMENORRHEA 11/29/2012 JOSE SILVERIO DDS 62 6.0 AMENORRHEA 11/29/2012 [facility], DEMOND R 626.0 AMENORRHEA 11/29/2012 [facility], DEMOND R 626.0 AMENORRHEA 11/29/2012 ROEL PLUMBING INSPECTOR, GODWIN 626 .0 AMENORRHEA 11/29/2012 MAR BLANTONNICOLA 626.0 AMENORRHEA 11/29/2012 ROEL PLUMBING INSPECTOR, GODWIN 626 .0 AMENORRHEA 11/29/2012 ROEL PLUMBING INSPECTOR, GODWIN 626 .0 AMENORRHEA 12/08/2012 Ot 723.1 CERV ICALGIA 12/08/2012 Ot 723.4 BRAC HIAL NEURITIS NOS 12/11/2012 Ot 723.1 CERV ICALGIA 12/11/2012 Ot 724.1 PAIN IN THORACIC SPINE 01/16/2013 NICOLA MANUEL DO 305.1 TOBACCO ABUSE 01/16/2013 NICOLA MANUEL DO 626.1 OLIGOMENORRHEA 01/16/2013 NICOLA MANUEL DO V73.81 HPV SCREENING 01/16/2013 NICOLA MANUEL DO V74.5 STD SCREEN 01/16/2013 NICOLA MANUEL DO V76.2 CERVICAL CANCER SCREENING (PAP SMEAR) 01/16/2013 JASON SOLANO DO 305 .1 TOBACCO ABUSE 01/16/2013 JASON SOLANO DO 626 .1 OLIGOMENORRHEA 01/16/2013 JASON SOLANO DO V73 .81 HPV SCREENING 01/16/2013 JASON SOLANO DO V74 .5 STD SCREEN 01/16/2013 JASON SOLANO DO V76 .2 CERVICAL CANCER SCREENING (PAP SMEAR) 01/16/2013 305.1 TOBA ADVANCED DEVELOPER ABUSE 01/16/2013 626.1 OLIG OMENORRHEA 01/16/2013 V73.81 HPV SCREENING 01/16/2013 V74.5 STD SCREEN 01/16/2013 V76.2 CERV ICAL CANCER SCREENING (PAP SMEAR) 01/16/2013 305.1 TOBA ADVANCED DEVELOPER ABUSE 01/16/2013 626.1 OLIG OMENORRHEA 01/16/2013 V73.81 HPV SCREENING 01/16/2013 V74.5 STD SCREEN 01/16/2013 V76.2 CERV ICAL CANCER SCREENING (PAP SMEAR) 01/16/2013 305.1 TOBA ADVANCED DEVELOPER ABUSE 01/16/2013 626.1 OLIG OMENORRHEA 01/16/2013 V73.81 HPV SCREENING 01/16/2013 V74.5 STD SCREEN 01/16/2013 V76.2 CERV ICAL CANCER SCREENING (PAP SMEAR) 01/16/2013 305.1 TOBA ADVANCED DEVELOPER ABUSE 01/16/2013 626.1 OLIG OMENORRHEA 01/16/2013 V73.81 HPV SCREENING 01/16/2013 V74.5 STD SCREEN 01/16/2013 V76.2 CERV ICAL CANCER SCREENING (PAP SMEAR) 01/16/2013 305.1 TOBA ADVANCED DEVELOPER ABUSE 01/16/2013 626.1 OLIG OMENORRHEA 01/16/2013 V73.81 HPV SCREENING 01/16/2013 V74.5 STD SCREEN 01/16/2013 V76.2 CERV ICAL CANCER SCREENING (PAP SMEAR) 01/16/2013 305.1 TOBA ADVANCED DEVELOPER ABUSE 01/16/2013 626.1 OLIG OMENORRHEA 01/16/2013 V73.81 HPV SCREENING 01/16/2013 V74.5 STD SCREEN 01/16/2013 V76.2 CERV ICAL CANCER SCREENING (PAP SMEAR) 01/16/2013 305.1 TOBA ADVANCED DEVELOPER ABUSE 01/16/2013 626.1 OLIG OMENORRHEA 01/16/2013 V73.81 HPV SCREENING 01/16/2013 V74.5 STD SCREEN 01/16/2013 V76.2 CERV ICAL CANCER SCREENING (PAP SMEAR) 01/16/2013 305.1 TOBA ADVANCED DEVELOPER ABUSE 01/16/2013 626.1 OLIG OMENORRHEA 01/16/2013 V73.81 HPV SCREENING 01/16/2013 V74.5 STD SCREEN 01/16/2013 V76.2 CERV ICAL CANCER SCREENING (PAP SMEAR) 01/16/2013 305.1 TOBA ADVANCED DEVELOPER ABUSE 01/16/2013 626.1 OLIG OMENORRHEA 01/16/2013 V73.81 HPV SCREENING 01/16/2013 V74.5 STD SCREEN 01/16/2013 V76.2 CERV ICAL CANCER SCREENING (PAP SMEAR) 01/16/2013 305.1 TOBA ADVANCED DEVELOPER ABUSE 01/16/2013 626.1 OLIG OMENORRHEA 01/16/2013 V73.81 HPV SCREENING 01/16/2013 V74.5 STD SCREEN 01/16/2013 V76.2 CERV ICAL CANCER SCREENING (PAP SMEAR) 01/16/2013 305.1 TOBA ADVANCED DEVELOPER ABUSE 01/16/2013 626.1 OLIG OMENORRHEA 01/16/2013 V73.81 HPV SCREENING 01/16/2013 V74.5 STD SCREEN 01/16/2013 V76.2 CERV ICAL CANCER SCREENING (PAP SMEAR) 01/16/2013 NICOLA MANUEL DO 305.1 TOBACCO ABUSE 01/16/2013 MANUEL NICOLA BLANTON 626.1 OLIGOMENORRHEA 01/16/2013 MANUEL NICOLA BLANTON K V73.81 HPV SCREENING 01/16/2013 MANUEL NICOLA BLANTON V74.5 STD SCREEN 01/16/2013 NICOLA MANUEL DO [...] MD 626.1 OLIGOMENORRHEA 01/16/2013 WOLF JAMA MD V73.8 1 HPV SCREENING 01/16/2013 WOLF JAMA MD V74.5 STD SCREEN 01/16/2013 WOLF JAMA MD V76.2 CERVICAL CANCER SCREENING (PAP SMEAR) 01/16/2013 NICOLA MANUEL DO 305.1 TOBACCO ABUSE 01/16/2013 NICOLA MANUEL DO 626.1 OLIGOMENORRHEA 01/16/2013 NICOLA MANUEL DO V73.81 HPV SCREENING 01/16/2013 NICOLA MANUEL DO V74.5 STD SCREEN 01/16/2013 NICOLA MANUEL DO V76.2 CERVICAL CANCER SCREENING (PAP SMEAR) 01/16/2013 KELY FRIEDMAN DDS 30 5.1 TOBACCO ABUSE 01/16/2013 WHITE ALICESKELY 62 6.1 OLIGOMENORRHEA 01/16/2013 WHITE ALICESKELY J V73.81 HPV SCREENING 01/16/2013 WHITE ALICESKELY J V7 4.5 STD SCREEN 01/16/2013 IDALIA BAKER KELY J V7 6.2 CERVICAL CANCER SCREENING (PAP SMEAR) 01/16/2013 JASON [...] MD 626.1 OLIGOMENORRHEA 01/16/2013 WOLF JAMA MD V73.8 1 HPV SCREENING 01/16/2013 WOLF JAMA MD V74.5 STD SCREEN 01/16/2013 WOLF JAMA MD V76.2 CERVICAL CANCER SCREENING (PAP SMEAR) 01/16/2013 GODWIN SEVILLA APRN 305 .1 TOBACCO ABUSE 01/16/2013 GODWIN SEVILLA APRN 626 .1 OLIGOMENORRHEA 01/16/2013 GODWIN SEVILLA APRN V73 .81 HPV SCREENING 01/16/2013 ROEL PLUMBING INSPECTOR, GODWIN V74 .5 STD SCREEN 01/16/2013 ROEL PLUMBING INSPECTOR, GODWIN V76 .2 CERVICAL CANCER SCREENING (PAP SMEAR) 01/16/2013 ROSITA GONZALEZ APRNA L 305 .1 TOBACCO ABUSE 01/16/2013 BRYANL PLUMBING INSPECTOR, FLO L 626 .1 OLIGOMENORRHEA 01/16/2013 MADL PLUMBING INSPECTOR, FLO L V73 .81 HPV SCREENING 01/16/2013 MADL PLUMBING INSPECTOR, FLO L V74 .5 STD SCREEN 01/16/2013 MADL PLUMBING INSPECTOR, FLO L V76 .2 CERVICAL CANCER SCREENING (PAP SMEAR) 01/16/2013 ROEL MENG GODWIN 305 .1 TOBACCO ABUSE 01/16/2013 ROEL PLUMBING INSPECTOR, GODWIN 626 .1 OLIGOMENORRHEA 01/16/2013 ROEL PLUMBING INSPECTOR, GODWIN V73 .81 HPV SCREENING 01/16/2013 ROEL PLUMBING INSPECTOR, GODWIN V74 .5 STD SCREEN 01/16/2013 ROEL MENG GODWIN V76 .2 CERVICAL CANCER SCREENING (PAP SMEAR) 01/16/2013 LISA CANONEARNESTINEFLO L 305 .1 TOBACCO ABUSE 01/16/2013 LISA PLUMBING INSPECTOR, FLO L 626 .1 OLIGOMENORRHEA 01/16/2013 LISA CANON, FLO L V73 .81 HPV SCREENING 01/16/2013 LISA MENG, FLO L V74 .5 STD SCREEN 01/16/2013 LISA MENG, FLO L V76 .2 CERVICAL CANCER SCREENING (PAP SMEAR) 01/16/2013 ROEL MENG GODWIN 305 .1 TOBACCO ABUSE 01/16/2013 ROEL PLUMBING INSPECTOR, GODWIN 626 .1 OLIGOMENORRHEA 01/16/2013 ROEL PLUMBING INSPECTOR, GODWIN V73 .81 HPV SCREENING 01/16/2013 ROEL PLUMBING INSPECTOR, GODWIN V74 .5 STD SCREEN 01/16/2013 ROEL MENG GODWIN V76 .2 CERVICAL CANCER SCREENING (PAP SMEAR) 01/16/2013 ROEL MENG GODWIN 305 .1 TOBACCO ABUSE 01/16/2013 ROEL PLUMBING INSPECTOR, GODWIN 626 .1 OLIGOMENORRHEA 01/16/2013 ROEL PLUMBING INSPECTOR, GODWIN V73 .81 HPV SCREENING 01/16/2013 ROEL PLUMBING INSPECTOR, GODWIN V74 .5 STD SCREEN 01/16/2013 ROEL PLUMBING INSPECTOR, GODWIN V76 .2 CERVICAL CANCER SCREENING (PAP SMEAR) 01/16/2013 EARNESTINE GONZALEZ APRNNYA L 305 .1 TOBACCO ABUSE 01/16/2013 LISA CANON, FLO L 626 .1 OLIGOMENORRHEA 01/16/2013 LISA PLUMBING INSPECTOR, FLO L V73 .81 HPV SCREENING 01/16/2013 BRYAN PLUMBING INSPECTOR, FLO L V74 .5 STD SCREEN 01/16/2013 BRYAN PLUMBING INSPECTOR, FLO L V76 .2 CERVICAL CANCER SCREENING (PAP SMEAR) 01/16/2013 LISA MENG, FLO L 305 .1 TOBACCO ABUSE 01/16/2013 BRYAN PLUMBING INSPECTOR, FLO L 626 .1 OLIGOMENORRHEA 01/16/2013 BRYAN PLUMBING INSPECTOR, FLO L V73 .81 HPV SCREENING 01/16/2013 BRYAN TAQUERIA, FLO L V74 .5 STD SCREEN 01/16/2013 BRYAN TAQUERIA, FLO L V76 .2 CERVICAL CANCER SCREENING (PAP SMEAR) 01/16/2013 ROEL CANON, GODWIN 305 .1 TOBACCO ABUSE 01/16/2013 ROEL CANON, GODWIN 626 .1 OLIGOMENORRHEA 01/16/2013 ROEL PLUMBING INSPECTOR, GODWIN V73 .81 HPV SCREENING 01/16/2013 ROEL PLUMBING INSPECTOR, GODWIN V74 .5 STD SCREEN 01/16/2013 ROEL CANON, GODWIN V76 .2 CERVICAL CANCER SCREENING (PAP SMEAR) 01/16/2013 SONNY APRN, ELIAS A 30 5.1 TOBACCO ABUSE 01/16/2013 SONNY APRN, ELIAS A 62 6.1 OLIGOMENORRHEA 01/16/2013 SONNY APRN, ELIAS A V73.81 HPV SCREENING 01/16/2013 SONNYKENJI MENG, ELIAS A V7 4.5 STD SCREEN 01/16/2013 SONNY APRN, ELIAS A V7 6.2 CERVICAL CANCER SCREENING (PAP SMEAR) [facility] 626.1 OLIGOMENORRHEA 01/16/2013 [facility], DEMOND R V73.81 HPV SCREENING 01/16/2013 [facility], DEMOND R V74.5 STD SCREEN 01/16/2013 [facility], DEMOND R V76.2 CERVICAL CANCER SCREENING (PAP SMEAR) 01/16/2013 MADL PLUMBING INSPECTOR, FLO L 305 .1 TOBACCO ABUSE 01/16/2013 MADL PLUMBING INSPECTOR, FLO L 626 .1 OLIGOMENORRHEA 01/16/2013 MADL PLUMBING INSPECTOR, FLO L V73 .81 HPV SCREENING 01/16/2013 MADL PLUMBING INSPECTOR, FLO L V74 .5 STD SCREEN 01/16/2013 MADL PLUMBING INSPECTOR, FLO L V76 .2 CERVICAL CANCER SCREENING (PAP SMEAR) 01/16/2013 SILVERIO DDS, JOSE 30 5.1 TOBACCO ABUSE 01/16/2013 SILVERIO DDS, JOSE 62 6.1 OLIGOMENORRHEA 01/16/2013 SILVERIO DDS, JOSE V73.81 HPV SCREENING 01/16/2013 SILVERIO DDS, JOSE V7 4.5 STD SCREEN 01/16/2013 SILVERIO DDS, JOSE V7 6.2 CERVICAL CANCER SCREENING (PAP SMEAR) 01/16/2013 [facility], DEMOND R 305.1 TOBACCO ABUSE 01/16/2013 [facility], DEMOND R 626.1 OLIGOMENORRHEA 01/16/2013 [facility], DEMOND R V73.81 HPV SCREENING 01/16/2013 [facility], DEMOND R V74.5 STD SCREEN 01/16/2013 [facility], DEMOND R V76.2 CERVICAL CANCER SCREENING (PAP SMEAR) 01/16/2013 [facility], DEMOND R 305.1 TOBACCO ABUSE 01/16/2013 [facility], DEMOND R 626.1 OLIGOMENORRHEA 01/16/2013 [facility], DEMOND R V73.81 HPV SCREENING 01/16/2013 [facility], DEMOND R V74.5 STD SCREEN 01/16/2013 [facility], DEMOND R V76.2 CERVICAL CANCER SCREENING (PAP SMEAR) 01/16/2013 ROEL PLUMBING INSPECTOR, GODWIN 305 .1 TOBACCO ABUSE 01/16/2013 ROEL PLUMBING INSPECTOR, GODWIN 626 .1 OLIGOMENORRHEA 01/16/2013 ROEL PLUMBING INSPECTOR, GODWIN V73 .81 HPV SCREENING 01/16/2013 ROEL PLUMBING INSPECTOR, GODWIN V74 .5 STD SCREEN 01/16/2013 ROEL PLUMBING INSPECTOR, GODWIN V76 .2 CERVICAL CANCER SCREENING (PAP SMEAR) 01/16/2013 MAR BLANTONNICOLA K 305.1 TOBACCO ABUSE 01/16/2013 MARAL MANUEL DOA K 626.1 OLIGOMENORRHEA 01/16/2013 MAR BLANTON NICOLA K V73.81 HPV SCREENING 01/16/2013 MAR BLANTON NICOLA K V74.5 STD SCREEN 01/16/2013 MAR BLANTON NICOLA K V76.2 CERVICAL CANCER SCREENING (PAP SMEAR) 01/16/2013 ROEL PLUMBING INSPECTOR, GODWIN 305 .1 TOBACCO ABUSE 01/16/2013 ROEL PLUMBING INSPECTOR, GODWIN 626 .1 OLIGOMENORRHEA 01/16/2013 ROEL PLUMBING INSPECTOR, GODWIN V73 .81 HPV SCREENING 01/16/2013 ROEL PLUMBING INSPECTOR, GODWIN V74 .5 STD SCREEN 01/16/2013 ROEL PLUMBING INSPECTOR, GODWIN V76 .2 CERVICAL CANCER SCREENING (PAP SMEAR) 01/16/2013 ROEL PLUMBING INSPECTOR, GODWIN 305 .1 TOBACCO ABUSE 01/16/2013 ROEL PLUMBING INSPECTOR, GODWIN 626 .1 OLIGOMENORRHEA 01/16/2013 ROEL PLUMBING INSPECTOR, GODWIN V73 .81 HPV SCREENING 01/16/2013 ROEL PLUMBING INSPECTOR, GODWIN V74 .5 STD SCREEN 01/16/2013 ROEL PLUMBING INSPECTOR, GODWIN V76 .2 CERVICAL CANCER SCREENING (PAP SMEAR) 01/24/2013 JASON SOLANO DO 296 .90 MOOD DISORDER NOS 01/24/2013 296.90 MOO D DISORDER NOS 01/24/2013 296.90 MOO D DISORDER NOS 01/24/2013 296.90 MOO D DISORDER NOS 01/24/2013 296.90 MOO D DISORDER NOS 01/24/2013 296.90 MOO D DISORDER NOS 01/24/2013 296.90 MOO D DISORDER NOS 01/24/2013 296.90 MOO D DISORDER NOS 01/24/2013 296.90 MOO D DISORDER NOS 01/24/2013 296.90 MOO D DISORDER NOS 01/24/2013 296.90 MOO D DISORDER NOS 01/24/2013 296.90 MOO D DISORDER NOS 01/24/2013 MANUEL DO, NICOLA K 296.90 MOOD DISORDER NOS 01/24/2013 GARTON PLUMBING INSPECTOR, JASON D 296.90 MOOD DISORDER NOS 01/24/2013 WOLF JAMA MD 296.9 0 MOOD DISORDER NOS 01/24/2013 MANUEL DO, NICOLA K 296.90 MOOD DISORDER NOS 01/24/2013 IDALIA BAKER, KELY Dickens 296.90 MOOD DISORDER NOS 01/24/2013 GARTON PLUMBING INSPECTOR, JASON D 296.90 MOOD DISORDER NOS 01/24/2013 GARTON PLUMBING INSPECTOR, JASON D 296.90 MOOD DISORDER NOS 01/24/2013 GARTON PLUMBING INSPECTOR, JASON D 296.90 MOOD DISORDER NOS 01/24/2013 WOLF JAMA MD 296.9 0 MOOD DISORDER NOS 01/24/2013 ROEL PLUMBING INSPECTOR, GODWIN 296 .90 MOOD DISORDER NOS 01/24/2013 MADL PLUMBING INSPECTOR, FLO L 296 .90 MOOD DISORDER NOS 01/24/2013 ROEL PLUMBING INSPECTOR, GODWIN 296 .90 MOOD DISORDER NOS 01/24/2013 MADL PLUMBING INSPECTOR, FLO L 296 .90 MOOD DISORDER NOS 01/24/2013 ROEL PLUMBING INSPECTOR, GODWIN 296 .90 MOOD DISORDER NOS 01/24/2013 ROEL PLUMBING INSPECTOR, GODWIN 296 .90 MOOD DISORDER NOS 01/24/2013 MADL PLUMBING INSPECTOR, FLO L 296 .90 MOOD DISORDER NOS 01/24/2013 MADL PLUMBING INSPECTOR, FLO L 296 .90 MOOD DISORDER NOS 01/24/2013 ROEL PLUMBING INSPECTOR, GODWIN 296 .90 MOOD DISORDER NOS 01/24/2013 SONNY PLUMBING INSPECTOR, ELIAS A 296.90 MOOD DISORDER NOS 01/24/2013 ANGELA CS, DEMOND R 296.90 MOOD DISORDER NOS 01/24/2013 MADL PLUMBING INSPECTOR, FLO L 296 .90 MOOD DISORDER NOS 01/24/2013 JOSE SILVERIO DDS 296.90 MOOD DISORDER NOS 01/24/2013 ANGELA LSCS, DEMOND R 296.90 MOOD DISORDER NOS 01/24/2013 ANGELA LSCS, DEMOND R 296.90 MOOD DISORDER NOS 01/24/2013 ROEL PLUMBING INSPECTOR, GODWIN 296 .90 MOOD DISORDER NOS 01/24/2013 MANUEL DO, NICOLA K 296.90 MOOD DISORDER NOS 01/24/2013 ROEL PLUMBING INSPECTOR, GODWIN 296 .90 MOOD DISORDER NOS 01/24/2013 GODWIN SEVILLA APRN 296 .90 MOOD DISORDER NOS 02/13/2013 787.02 STEPHANIE SEA ALONE 02/13/2013 787.02 STEPHANIE SEA ALONE 02/13/2013 787.02 STEPHANIE SEA ALONE 02/13/2013 787.02 STEPHANIE SEA ALONE 02/13/2013 787.02 STEPHANIE SEA ALONE 02/13/2013 787.02 STEPHANIE SEA ALONE 02/13/2013 787.02 STEPHANIE SEA ALONE 02/13/2013 787.02 STEPHANIE SEA ALONE 02/13/2013 787.02 STEPHANIE SEA ALONE 02/13/2013 787.02 STEPHANIE SEA ALONE 02/13/2013 787.02 STEPHANIE SEA ALONE 02/13/2013 NICOLA MANUEL DO 787.02 NAUSEA ALONE 02/13/2013 JASON HUNTER APRN 787.02 NAUSEA ALONE 02/13/2013 WOLF JAMA MD 787.0 2 NAUSEA ALONE 02/13/2013 NICOLA MANUEL DO 787.02 NAUSEA ALONE 02/13/2013 KELY FRIEDMAN DDS 787.02 NAUSEA ALONE 02/13/2013 JASON HUNTER APRN 787.02 NAUSEA ALONE 02/13/2013 JASON HUNTER APRN 787.02 NAUSEA ALONE 02/13/2013 JASON HUNTER APRN 787.02 NAUSEA ALONE 02/13/2013 WOLF JAMA MD 787.0 2 NAUSEA ALONE 02/13/2013 GODWIN SEVILLA APRN 787 .02 NAUSEA ALONE 02/13/2013 FLO GONZALEZ APRN 787 .02 NAUSEA ALONE 02/13/2013 GODWIN SEVILLA APRN 787 .02 NAUSEA ALONE 02/13/2013 FLO GONZALEZ APRN 787 .02 NAUSEA ALONE 02/13/2013 GODWIN SEVILLA APRN 787 .02 NAUSEA ALONE 02/13/2013 GODWIN SEVILLA APRN 787 .02 NAUSEA ALONE 02/13/2013 FLO GONZALEZ APRN 787 .02 NAUSEA ALONE 02/13/2013 FLO GONZALEZ APRN 787 .02 NAUSEA ALONE 02/13/2013 ROEL PLUMBING INSPECTOR, GODWIN 787 .02 NAUSEA ALONE 02/13/2013 SONNYCasimiro MENG ELIAS A 787.02 NAUSEA ALONE 02/13/2013 [facility], DEMOND R 787.02 NAUSEA ALONE 02/13/2013 MADL FLO MENG L 787 .02 NAUSEA ALONE 02/13/2013 JOSE SILVERIO DDS 787.02 NAUSEA ALONE 02/13/2013 [facility], DEMOND R 787.02 NAUSEA ALONE 02/13/2013 [facility], DEMOND R 787.02 NAUSEA ALONE 02/13/2013 ROEL PLUMBING INSPECTOR, GODWIN 787 .02 NAUSEA ALONE 02/13/2013 NICOLA MANUEL DO 787.02 NAUSEA ALONE 02/13/2013 ROEL PLUMBING INSPECTOR, GODWIN 787 .02 NAUSEA ALONE 02/13/2013 ROEL PLUMBING INSPECTOR, GODWIN 787 .02 NAUSEA ALONE 03/23/2013 309.81 AN PTSD 03/23/2013 309.81 AN PTSD 03/23/2013 309.81 AN PTSD 03/23/2013 309.81 AN PTSD 03/23/2013 309.81 AN PTSD 03/23/2013 309.81 AN PTSD 03/23/2013 309.81 AN PTSD 03/23/2013 NICOLA MANUEL DO 309.81 AN PTSD 03/23/2013 JASON HUNTER APRN 309.81 AN PTSD 03/23/2013 WOLF JAMA MD 309.8 1 AN PTSD 03/23/2013 NICOLA MANUEL DO 309.81 AN PTSD 03/23/2013 IDALIA [facility] KELY J 309.81 AN PTSD 03/23/2013 JASON HUNTER APRN 309.81 AN PTSD 03/23/2013 JASON HUNTER APRN 309.81 AN PTSD 03/23/2013 JASON HUNTER APRN 309.81 AN PTSD 03/23/2013 WOLF JAMA MD 309.8 1 AN PTSD 03/23/2013 ROEL MENG GODWIN 309 .81 AN PTSD 03/23/2013 MADL PLUMBING INSPECTORROSITA KirkpatrickA L 309 .81 AN PTSD 03/23/2013 ROEL PLUMBING INSPECTOR, GODWIN 309 .81 AN PTSD 03/23/2013 BRYANL PLUMBING INSPECTOR, FLO L 309 .81 AN PTSD 03/23/2013 ROEL PLUMBING INSPECTOR, GODWIN 309 .81 AN PTSD 03/23/2013 ROEL PLUMBING INSPECTOR, GODWIN 309 .81 AN PTSD 03/23/2013 MADL PLUMBING INSPECTOR, FLO L 309 .81 AN PTSD 03/23/2013 MADL PLUMBING INSPECTOR, FLO L 309 .81 AN PTSD 03/23/2013 ROEL PLUMBING INSPECTOR, GODWIN 309 .81 AN PTSD 03/23/2013 SONNY PLUMBING INSPECTOR, ELIAS A 309.81 AN PTSD 03/23/2013 [facility], DEMOND R 309.81 AN PTSD 03/23/2013 MADL PLUMBING INSPECTOR, FLO L 309 .81 AN PTSD 03/23/2013 JOSE SILVERIO DDS 309.81 AN PTSD 03/23/2013 [facility], DEMOND R 309.81 AN PTSD 03/23/2013 [facility], DEMOND R 309.81 AN PTSD 03/23/2013 ROEL PLUMBING INSPECTOR, GODWIN 309 .81 AN PTSD 03/23/2013 NICOLA MANUEL DO 309.81 AN PTSD 03/23/2013 ROEL PLUMBING INSPECTOR, GODWIN 309 .81 AN PTSD 03/23/2013 ROEL PLUMBING INSPECTOR, GODWIN 309 .81 AN PTSD 04/20/2013 JESSIE ROBERTS MD Ot 427.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 04/20/2013 JESSIE ROBERTS MD Ot 785 .1 PALPITATIONS 04/26/2013 724.2 LUMB AGO/ LOW BACK PAIN 04/26/2013 724.2 LUMB AGO/ LOW BACK PAIN 04/26/2013 724.2 LUMB AGO/ LOW BACK PAIN 04/26/2013 724.2 LUMB AGO/ LOW BACK PAIN 04/26/2013 724.2 LUMB AGO/ LOW BACK PAIN 04/26/2013 NICOLA MANUEL DO 724.2 LUMBAGO/ LOW BACK PAIN 04/26/2013 JASON HUNTER APRN 724.2 LUMBAGO/ LOW BACK PAIN 04/26/2013 WOLF JAMA MD 724.2 LUMBAGO/ LOW BACK PAIN 04/26/2013 NICOLA MANUEL DO 724.2 LUMBAGO/ LOW BACK PAIN 04/26/2013 KELY FRIEDMAN DDS 72 4.2 LUMBAGO/ LOW BACK PAIN 04/26/2013 GARMYRA PLUMBING INSPECTORJASON Kirkpatrick 724.2 LUMBAGO/ LOW BACK PAIN 04/26/2013 DALE PLUMBING INSPECTOR, JASON D 724.2 LUMBAGO/ LOW BACK PAIN 04/26/2013 DALE PLUMBING INSPECTOR, JASON Steel 724.2 LUMBAGO/ LOW BACK PAIN 04/26/2013 EVITA JONES, WOLF 724.2 LUMBAGO/ LOW BACK PAIN 04/26/2013 ROEL PLUMBING INSPECTOR, GODWIN 724 .2 LUMBAGO/ LOW BACK PAIN 04/26/2013 MADL PLUMBING INSPECTOR, FLO L 724 .2 LUMBAGO/ LOW BACK PAIN 04/26/2013 ROEL PLUMBING INSPECTOR, GODWIN 724 .2 LUMBAGO/ LOW BACK PAIN 04/26/2013 MADL PLUMBING INSPECTOR, FLO L 724 .2 LUMBAGO/ LOW BACK PAIN 04/26/2013 ROEL PLUMBING INSPECTOR, GODWIN 724 .2 LUMBAGO/ LOW BACK PAIN 04/26/2013 ROEL PLUMBING INSPECTOR, GODWIN 724 .2 LUMBAGO/ LOW BACK PAIN 04/26/2013 MADL PLUMBING INSPECTOR, FLO L 724 .2 LUMBAGO/ LOW BACK PAIN 04/26/2013 MADL PLUMBING INSPECTOR, FLO L 724 .2 LUMBAGO/ LOW BACK PAIN 04/26/2013 ROEL PLUMBING INSPECTOR, GODWIN 724 .2 LUMBAGO/ LOW BACK PAIN 04/26/2013 ELIAS DENNIS APRN 72 4.2 LUMBAGO/ LOW BACK PAIN 04/26/2013 [facility] 724.2 LUMBAGO/ LOW BACK PAIN 04/26/2013 MADL PLUMBING INSPECTOR, FLO L 724 .2 LUMBAGO/ LOW BACK PAIN 04/26/2013 JOSE SILVERIO DDS 72 4.2 LUMBAGO/ LOW BACK PAIN 04/26/2013 ANGEL[facility], DEMOND R 724.2 LUMBAGO/ LOW BACK PAIN 04/26/2013 ANGELA [facility], DEMOND R 724.2 LUMBAGO/ LOW BACK PAIN 04/26/2013 ROEL PLUMBING INSPECTOR, GODWIN 724 .2 LUMBAGO/ LOW BACK PAIN 04/26/2013 MAR BLANTON, NICOLA K 724.2 LUMBAGO/ LOW BACK PAIN 04/26/2013 GODWIN SEVILLA APRN 724 .2 LUMBAGO/ LOW BACK PAIN 04/26/2013 GODWIN SEVILLA APRN 724 .2 LUMBAGO/ LOW BACK PAIN 04/29/2013 799.81 DEC REASED LIBIDO 04/29/2013 V26.9 PROC REATIVE MANAGEMENT 04/29/2013 799.81 DEC REASED LIBIDO 04/29/2013 V26.9 PROC REATIVE MANAGEMENT 04/29/2013 799.81 DEC REASED LIBIDO 04/29/2013 V26.9 PROC REATIVE MANAGEMENT 04/29/2013 799.81 DEC REASED LIBIDO 04/29/2013 V26.9 PROC REATIVE MANAGEMENT 04/29/2013 MAR BLANTON NICOLA K 799.81 DECREASED LIBIDO 04/29/2013 MANUEL DO NICOLA K V26.9 PROCREATIVE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 INSPECTOR, GODWIN V58 .69 MEDICATION HIGH RISK 10/17/2014 ROEL PLUMBING INSPECTOR, GODWIN 312 .30 I IMPULSE CONTROL DISORDER NOS 10/17/2014 ROEL PLUMBING INSPECTOR, GODWIN V58 .69 MEDICATION HIGH RISK 10/31/2014 [facility], DEMOND R 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 10/31/2014 MADL PLUMBING INSPECTOR, FLO L 296 .62 MO BIPOLAR I MIXED MODERATE 10/31/2014 JOSE SILVERIO DDS 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 10/31/2014 [facility], DEMOND R 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 10/31/2014 [facility], DEMOND R 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 10/31/2014 ROEL PLUMBING INSPECTOR, GODWIN 296 .62 MO BIPOLAR I MIXED MODERATE 10/31/2014 NICOLA MANUEL DO K 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 10/31/2014 ROEL PLUMBING INSPECTOR, GODWIN 296 .62 MO BIPOLAR I MIXED MODERATE 10/31/2014 ROEL PLUMBING INSPECTOR, GODWIN 296 .62 MO BIPOLAR I MIXED MODERATE 11/10/2014 MADL PLUMBING INSPECTOR, FLO L 785 .1 PALPITATIONS 11/10/2014 JOSE SILVERIO DDS 78 5.1 PALPITATIONS 11/10/2014 [facility], DEMOND R 785.1 PALPITATIONS 11/10/2014 [facility], DEMOND R 785.1 PALPITATIONS 11/10/2014 ROEL PLUMBING INSPECTOR, GODWIN 785 .1 PALPITATIONS 11/10/2014 NICOLA MANUEL DO K 785.1 PALPITATIONS 11/10/2014 ROEL PLUMBING INSPECTOR, GODWIN 785 .1 PALPITATIONS 11/10/2014 ROEL PLUMBING INSPECTOR, GODWIN 785 .1 PALPITATIONS 11/28/2014 NARAYAN GONZALEZWNYA L THEORETICAL PHYSICIST Ot 785 .1 11/28/2014 ISMAEL SOL APRN Ot 521.00 UNSPEC DENTAL CARIES 11/28/2014 ISMAEL SOL APRN Ot 525 .9 DENTAL DISORDER NOS 12/09/2014 ISMAEL SOL APRN Ot 785 .1 PALPITATIONS 12/18/2014 NICOLA MANUEL DO K V15.82 NICOTINE ABUSE 12/18/2014 ROEL PLUMBING INSPECTOR, GODWIN V15 .82 NICOTINE ABUSE 12/18/2014 GODWIN SEVILLA APRN V15 .82 NICOTINE ABUSE 01/01/2015 FLO GONZALEZ L THEORETICAL PHYSICIST Ot 785 .1 01/21/2015 Ot 521.00 UNS PEC DENTAL CARIES 01/21/2015 Ot 523.10 CHR ONIC GINGIVITIS, PLAQUE INDUCED 01/21/2015 Ot 525.9 DENT AL DISORDER NOS 01/23/2015 GODWIN SEVILLA APRN 296 .64 MO BIPOLAR I MIXED W PSYCHOTIC BEHAVIOR 01/23/2015 GODWIN SEVILLA APRN 296 .64 MO BIPOLAR I MIXED W PSYCHOTIC BEHAVIOR 02/25/2015 BRYANROSITA AlfredA L THEORETICAL PHYSICIST Ot 785 .1 PALPITATIONS 05/18/2015 Ot 427.9 05/18/2015 EVITA JONES, WOLF Carmona Ot 596.59 05/18/2015 EVITA JONES, WOLF Carmona Ot 724 .2 05/18/2015 EVITA JONES, WOLF Carmona Ot 729 .5 05/18/2015 GERBER JONES, JENNIFER Altamirano Ot 240.9 05/18/2015 GERBER JONES, JENNIFER Altamirano Ot 789.01 05/18/2015 LISA, FLO L THEORETICAL PHYSICIST Ot 724 .2 05/18/2015 BRYANL, FLO L THEORETICAL PHYSICIST Ot 785 .1 05/18/2015 Ot 427.9 05/18/2015 EVITA JONES, WOLF Carmona Ot 596.59 05/18/2015 EVITA JONES, WOLF Carmona Ot 724 .2 05/18/2015 EVITA JONES, WOLF Carmona Ot 729 .5 05/18/2015 GERBER JONES, JENNIFER Altamirano Ot 240.9 05/18/2015 GERBER JONES, JENNIFER Altamirano Ot 789.01 05/18/2015 MADL, FLO L THEORETICAL PHYSICIST Ot 724 .2 05/18/2015 MADL, FLO L THEORETICAL PHYSICIST Ot 785 .1 05/18/2015 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 Ot 112 .1 CANDIDAL VULVOVAGINITIS 05/18/2015 ISMAEL SOL APRN Ot 599 .0 URIN TRACT INFECTION NOS 05/18/2015 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 Ot 789.09 ABDOMINAL PAIN, OTHER SPECIFIED SITE 05/18/2015 FLO GONZALEZ THEORETICAL PHYSICIST Ot 724 .2 08/26/2015 FLO GONZALEZ THEORETICAL PHYSICIST Ot 785 .1 08/26/2015 MIRANDA LOCO DO Ot N39.0 URINARY TRACT INFECTION, SITE NOT SPECIF 08/26/2015 MIRANDA LOCO DO Ot R10.11 RIGHT UPPER QUADRANT PAIN 08/31/2015 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 Ot F19.10 OTHER PSYCHOACTIVE SUBSTANCE ABUSE, UNCO 08/31/2015 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 Ot R56 .9 UNSPECIFIED CONVULSIONS 10/10/2015 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 Ot F17.210 NICOTINE DEPENDENCE, CIGARETTES, UNCOMPL 10/10/2015 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 Ot F39 UNSPECIFIED MOOD [AFFECTIVE] DISORDER 10/10/2015 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 Ot N39 .0 URINARY TRACT INFECTION, SITE NOT SPECIF 10/10/2015 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 Ot T88.7XXA UNSP ADVERSE EFFECT OF DRUG OR MEDICAMEN 11/04/2015 Ot 427.9 11/04/2015 EVITA JONES, WOLF Carmona Ot 596.59 11/04/2015 EVITA JONES, WOLF Carmona Ot 724 .2 11/04/2015 WOLF JAMA MD Ot 729 .5 11/04/2015 JENNIFER MAYES MD Ot 240.9 11/04/2015 JENNIFER MAYES MD Ot 789.01 11/04/2015 LISAFLO Tima THEORETICAL PHYSICIST Ot 724 .2 11/04/2015 BRYANFLO Alfred THEORETICAL PHYSICIST Ot 785 .1 11/19/2015 FELICIA RESTREPO PLUMBING INSPECTOR Ot Z87.42 01/02/2016 Ot 427.9 01/02/2016 WOLF JAMA MD Ot 596.59 01/02/2016 WOLF JAMA MD Ot 724 .2 01/02/2016 WOLF JAMA MD Ot 729 .5 01/02/2016 JENNIFER MAYES MD Ot 240.9 01/02/2016 JENNIFER MAYES MD Ot 789.01 01/02/2016 EARNESTINE GONZALEZNYA L THEORETICAL PHYSICIST Ot 724 .2 01/02/2016 MADL, FLO L THEORETICAL PHYSICIST Ot 785 .1 01/02/2016 FELICIA RESTREPO APRN Ot Z87.42 01/02/2016 MIRANDA LOCO DO Ot F12.10 CANNABIS ABUSE, UNCOMPLICATED 01/02/2016 MIRANDA LOCO DO Ot F17.210 NICOTINE DEPENDENCE, CIGARETTES, UNCOMPL 01/02/2016 MIRANDA LOCO DO Ot K02.9 DENTAL CARIES, UNSPECIFIED 01/02/2016 MIRANDA LOCO DO Ot K04.7 PERIAPICAL ABSCESS WITHOUT SINUS 01/02/2016 Ot 427.9 01/02/2016 EVITA JONES, WOLF Carmona Ot 596.59 01/02/2016 EVITA JONES, WOLF Carmona Ot 724 .2 01/02/2016 EVITA JONES, WOLF Carmona Ot 729 .5 01/02/2016 GERBER JONES, JENNIFER Altamirano Ot 240.9 01/02/2016 GERBER JONES, JENNIFER Altamirano Ot 789.01 01/02/2016 MADL, FLO L THEORETICAL PHYSICIST Ot 724 .2 01/02/2016 MADL, FLO L THEORETICAL PHYSICIST Ot 785 .1 01/02/2016 FELICIA RESTREPO APRN Ot Z87.42 03/23/2016 Ot 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 03/23/2016 EVITA JONES, WOLF Carmona Ot 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 03/23/2016 WOLF JAMA MD Ot 724 .2 LUMBAGO 03/23/2016 EVITA JONES, WOLF Carmona Ot 729 .5 PAIN IN LIMB 03/23/2016 JENNIFER MAYES MD Ot 240.9 GOITER NOS 03/23/2016 JENNIFER MAYES MD Ot 789.01 ABDOMINAL PAIN, RIGHT UPPER QUADRANT 03/23/2016 MADL, FLO L THEORETICAL PHYSICIST Ot 724 .2 LUMBAGO 03/23/2016 MADL, FLO L THEORETICAL PHYSICIST Ot 785 .1 PALPITATIONS 03/23/2016 FELICIA RESTREPO APRN Ot Z87.42 PERSONAL HISTORY OF OTH DISEASES OF THE 03/24/2016 Ot 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 03/24/2016 WOLF JAMA MD Ot 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 03/24/2016 WOLF JAMA MD Ot 724 .2 LUMBAGO 03/24/2016 WOLF JAMA MD Ot 729 .5 PAIN IN LIMB 03/24/2016 JENNIFER MAYES MD Ot 240.9 GOITER NOS 03/24/2016 JENNIFER MAYES MD Ot 789.01 ABDOMINAL PAIN, RIGHT UPPER QUADRANT 03/24/2016 MADL, FLO L THEORETICAL PHYSICIST Ot 724 .2 LUMBAGO 03/24/2016 MADL, FLO L THEORETICAL PHYSICIST Ot 785 .1 PALPITATIONS 03/24/2016 FELICIA RESTREPO APRN Ot Z87.42 PERSONAL HISTORY OF OTH DISEASES OF THE 03/24/2016 CLAUDY DO, MIRANDA K Ot F17.210 NICOTINE DEPENDENCE, CIGARETTES, UNCOMPL 03/24/2016 CLAUDY DO, MIRANDA K Ot K59.00 CONSTIPATION, UNSPECIFIED 03/24/2016 CLAUDY DO, MIRANDA K Ot N39.0 URINARY TRACT INFECTION, SITE NOT SPECIF 03/24/2016 CLAUDY DO, MIRANDA K Ot R41.0 DISORIENTATION, UNSPECIFIED 03/24/2016 CLAUDY DO, MIRANDA K Ot F17.210 NICOTINE DEPENDENCE, CIGARETTES, UNCOMPL 03/24/2016 CLAUDY DO, MIRANDA K Ot K59.00 CONSTIPATION, UNSPECIFIED 03/24/2016 CLAUDY DO, MIRANDA K Ot N39.0 URINARY TRACT INFECTION, SITE NOT SPECIF 03/24/2016 CLAUDY DO, MIRANDA K Ot R41.0 DISORIENTATION, UNSPECIFIED 06/29/2016 Ot 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 06/29/2016 WOLF JAMA MD Ot 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 06/29/2016 WOLF JAMA MD Ot 724 .2 LUMBAGO 06/29/2016 WOLF JAMA MD Ot 729 .5 PAIN IN LIMB 06/29/2016 JENNIFER MAYES MD Ot 240.9 GOITER NOS 06/29/2016 JENNIFER MAYES MD Ot 789.01 ABDOMINAL PAIN, RIGHT UPPER QUADRANT 06/29/2016 MADL, FLO L THEORETICAL PHYSICIST Ot 724 .2 LUMBAGO 06/29/2016 FLO GONZALEZ THEORETICAL PHYSICIST Ot 785 .1 PALPITATIONS 06/29/2016 LAUROFELICIA Maddy MENG Ot Z87.42 PERSONAL HISTORY OF OTH DISEASES OF THE 06/29/2016 REZA CORONADO MD Ot F17.210 NICOTINE DEPENDENCE, CIGARETTES, UNCOMPL 06/29/2016 ERZA CORONADO MD Ot N76.0 ACUTE VAGINITIS 06/29/2016 REZA CORONADO MD Ot O20.0 THREATENED 06/29/2016 REZA CORONADO MD Ot Z3A.15 15 WEEKS GESTATION OF 06/30/2016 REZA CORONADO MD, Ot F17.210 NICOTINE DEPENDENCE, CIGARETTES, UNCOMPL 06/30/2016 [...] O99.332 SMOKING (TOBACCO) COMPLICATING 07/22/2016 SUNITA BERNAL Ot R10.31 RIGHT LOWER QUADRANT PAIN 07/22/2016 SUNITA BERNAL Ot Z3A.18 18 WEEKS GESTATION OF 07/22/2016 SUNITA BERNAL Ot Z79.899 OTHER GAS PUMP ATTENDANT (CURRENT) DRUG THERAPY 07/25/2016 SUNITA BERNAL Ot [...] PAIN 07/25/2016 SUNITA BERNAL Ot Z79.899 OTHER GAS PUMP ATTENDANT (CURRENT) DRUG THERAPY 07/25/2016 SUNITA BERNAL Ot [...] PAIN 07/25/2016 SUNITA BERNAL Ot Z79.899 OTHER LONGTERM (CURRENT) DRUG THERAPY 07/25/2016 SUNITA BERNAL Ot [...] OF 07/25/2016 SUNITA BERNAL Ot Z79.899 OTHER GAS PUMP ATTENDANT (CURRENT) DRUG THERAPY 09/14/2016 JENNIFER AMYES MD Ot O47.02 FALSE LABOR BEFORE 37 COMPLETED WEEKS OF 09/14/2016 JENNIFER MAYES MD Ot Z3A.26 26 WEEKS GESTATION OF 09/16/2016 [...] 34 WEEKS GESTATION OF 11/14/2016 JENNIFER MAYES MD Ot O47.03 FALSE LABOR BEFORE 37 COMPLETED WEEKS OF 11/14/2016 JENNIFER MAYES MD, Ot Z3A.34 34 WEEKS GESTATION OF 11/26/2016 JENNIFER MAYES MD Ot O47.03 FALSE LABOR BEFORE 37 COMPLETED WEEKS OF 11/26/2016 JENNIFER MAYES MD, Ot Z3A.36 36 WEEKS GESTATION OF 12/01/2016 JENNIFER MAYES MD Ot O47.03 FALSE LABOR BEFORE 37 COMPLETED WEEKS OF 12/01/2016 JENNIFER MAYES MD, Ot Z3A.36 36 WEEKS GESTATION OF 12/01/2016 JENNIFER MAYES MD, Ot O47.03 FALSE LABOR BEFORE 37 COMPLETED WEEKS OF 12/01/2016 JENNIFER MAYES MD, Ot Z3A.36 36 WEEKS GESTATION OF 12/01/2016 JENNIFER MAYES MD, Ot F41.9 ANXIETY DISORDER, UNSPECIFIED 12/01/2016 JENNIFER MAYES MD, Ot O69.2XX0 LABOR AND DEL COMP BY [facility], 12/01/2016 JENNIFER MAYES MD, Ot [...] CARIES, UNSPECIFIED 12/02/2016 SUNITA BERNAL Ot O99.89 OT DISEASES AND CONDITIONS COMPL PREG/C 12/02/2016 SUNITA BERNAL Ot R00.2 PALPITATIONS 12/02/2016 SUNITA BERNAL Ot Z72.820 SLEEP DEPRIVATION 12/05/2016 SUNITA BERNAL Ot E86.9 VOLUME DEPLETION, UNSPECIFIED 12/05/2016 SUNITA BERNAL Ot F17.210 NICOTINE DEPENDENCE, CIGARETTES, UNCOMPL 12/05/2016 SUNITA BERNAL Ot K02.9 DENTAL CARIES, UNSPECIFIED 12/05/2016 SUNITA BERNAL Ot O99.89 OT DISEASES AND CONDITIONS COMPL PREG/C 12/05/2016 SUNITA [...] SUNITA BERNAL Ot Z72.820 SLEEP DEPRIVATION 12/16/2016 CALVIN JACOBO MD Ot F17.210 NICOTINE DEPENDENCE, CIGARETTES, UNCOMPL 12/16/2016 [...] Ot R53.83 OTHER FATIGUE 01/04/2017 JENNIFER MAYES MD Ot D64.9 ANEMIA, UNSPECIFIED 01/04/2017 JENNIFER MAYES MD Ot N80.9 ENDOMETRIOSIS, UNSPECIFIED 01/04/2017 JENNIFER MAYES MD Ot N93.8 OTHER SPECIFIED ABNORMAL UTERINE AND VAG 01/04/2017 JENNIFER MAYES MD Ot R10.2 PELVIC AND PERINEAL PAIN 01/04/2017 JENNIFER MAYES MD, Ot Z01.818 ENCOUNTER FOR OTHER PREPROCEDURAL EXAMIN 01/04/2017 JENNIFER MAYES MD, Ot Z11.2 ENCOUNTER FOR [...] ENCOUNTER FOR OTHER PREPROCEDURAL EXAMIN 01/05/2017 JENNIFER AMYES MD, Ot Z11.2 ENCOUNTER FOR SCREENING FOR OTHER BACTER 01/10/2017 JENNIFER MAYES MD, Ot N70.01 ACUTE SALPINGITIS 01/10/2017 JENNIFER MAYES MD, Ot N72 INFLAMMATORY DISEASE OF CERVIX UTERI 01/10/2017 JENNIFER MAYES MD, Ot N80.0 ENDOMETRIOSIS OF UTERUS 01/10/2017 JENNIFER MAYES MD Ot N80.1 ENDOMETRIOSIS OF OVARY 01/10/2017 JENNIFER [...] N83.02 FOLLICULAR CYST OF LEFT OVARY 02/02/2017 ARMANDO JONES, JESSIE Workman Ot G89.18 OTHER ACUTE POSTPROCEDURAL PAIN 02/02/2017 JESSIE ROBERTS MD Ot K08.409 PARTIAL LOSS OF TEETH, UNSPECIFIED CAUSE 02/02/2017 JESSIE ROBERTS MD Ot K08 .9 DISORDER OF TEETH AND SUPPORTING STRUCTU 02/03/2017 JESSIE ROBERTS MD Ot G89.18 OTHER ACUTE POSTPROCEDURAL PAIN 02/03/2017 JESSIE ROBERTS MD Ot K08.409 PARTIAL LOSS OF TEETH, UNSPECIFIED CAUSE 02/03/2017 JESSIE ROBERTS MD Ot K08 .9 DISORDER OF TEETH AND SUPPORTING STRUCTU 04/11/2017 MADL, FLO L THEORETICAL PHYSICIST Ot R10 .2 PELVIC AND PERINEAL PAIN 04/24/2017 MADL, FLO L THEORETICAL PHYSICIST Ot R10 .2 PELVIC AND PERINEAL PAIN 04/24/2017 Ot 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 04/24/2017 WOLF JAMA MD Ot 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 04/24/2017 WOLF JAMA MD Ot 724 .2 LUMBAGO 04/24/2017 WOLF JAMA MD Ot 729 .5 PAIN IN LIMB 04/24/2017 JENNIFER MAYES MD Ot 240.9 GOITER NOS 04/24/2017 JENNIFER MAYES MD Ot 789.01 ABDOMINAL PAIN, RIGHT UPPER QUADRANT 04/24/2017 MADL, FLO L THEORETICAL PHYSICIST Ot 724 .2 LUMBAGO 04/24/2017 MADL, FLO L THEORETICAL PHYSICIST Ot 785 .1 PALPITATIONS 04/24/2017 FELICIA RESTREPO APRN Ot Z87.42 PERSONAL HISTORY OF OTH DISEASES OF THE 04/24/2017 JENNIFER MAYES MD Ot O36.0930 MATERNAL CARE FOR OTH RHESUS ISOIMMUN, T 04/24/2017 JENNIFER MAYES MD Ot Z23 ENCOUNTER FOR IMMUNIZATION 04/24/2017 JENNIFER MAYES MD, Ot Z3A.00 WEEKS OF GESTATION OF NOT SPEC 04/24/2017 MADL, FLO L THEORETICAL PHYSICIST Ot R10 .2 PELVIC AND PERINEAL PAIN 05/03/2017 MADL, FLO L THEORETICAL PHYSICIST Ot R10 .2 PELVIC AND PERINEAL PAIN 05/03/2017 FLO GONZALEZ THEORETICAL PHYSICIST Ot R10 .2 PELVIC AND PERINEAL PAIN 11/30/2017 JENNIFER MAYES [...] OVARIAN CYST, LEFT SIDE 12/21/2017 CALVIN JACOBO MD Ot F17.210 NICOTINE DEPENDENCE, CIGARETTES, UNCOMPL 12/21/2017 [...] Ot Z88.0 ALLERGY STATUS TO PENICILLIN 12/21/2017 DONNELL JONES, CALVIN Kiser Ot Z88.8 ALLERGY STATUS TO OTH DRUG/MEDS/BIOL SUB 12/21/2017 DONNELL JONES, CALVIN Kiser Ot Z90.721 ACQUIRED ABSENCE OF OVARIES, UNILATERAL 12/21/2017 DONENLL JONES, CALVIN Kiser Ot Z90.89 ACQUIRED ABSENCE OF OTHER ORGANS 12/25/2017 JENNIFER MAYES MD Ot F17.210 NICOTINE DEPENDENCE, CIGARETTES, UNCOMPL 12/25/2017 GERBER JONES, JENNIFER Altamirano Ot F31.9 BIPOLAR DISORDER, UNSPECIFIED 12/25/2017 JENNIFER MAYES MD, Ot F41.9 ANXIETY DISORDER, UNSPECIFIED 12/25/2017 JENNIFER MAYES MD, Ot G40.909 EPILEPSY, UNSP, NOT INTRACTABLE, WITHOUT 12/25/2017 JENNIFER MAYES MD Ot J45.909 UNSPECIFIED ASTHMA, UNCOMPLICATED 12/25/2017 JENNIFER [...] Ot Z88.0 ALLERGY STATUS TO PENICILLIN 01/09/2018 MIRANDA LOCO DO Ot Z88.1 ALLERGY STATUS TO OTHER ANTIBIOTIC AGENT 01/09/2018 MIRANDA LOCO DO Ot Z88.6 ALLERGY STATUS TO ANALGESIC AGENT STATUS 01/09/2018 MIRANDA LOCO DO Ot Z90.710 ACQUIRED ABSENCE OF BOTH CERVIX AND UTER 01/09/2018 MIRANDA LOCO DO Ot Z90.89 ACQUIRED ABSENCE OF OTHER ORGANS 01/10/2018 CALVIN JACOBO MD Ot F17.210 NICOTINE DEPENDENCE, CIGARETTES, UNCOMPL 01/10/2018 CALVIN JACOBO MD Ot F31.9 BIPOLAR DISORDER, UNSPECIFIED 01/10/2018 CALVIN JACOBO MD Ot F41.9 ANXIETY DISORDER, UNSPECIFIED 01/10/2018 CALVIN [...] Z90.721 ACQUIRED ABSENCE OF OVARIES, UNILATERAL 01/10/2018 CALVIN JACOBO MD Ot Z90.89 ACQUIRED ABSENCE OF OTHER ORGANS 01/11/2018 MIRANDA LOCO DO Ot F17.210 NICOTINE DEPENDENCE, CIGARETTES, UNCOMPL 01/11/2018 MIRANDA LOCO DO Ot F31.9 BIPOLAR DISORDER, UNSPECIFIED 01/11/2018 MIRANDA LOCO DO Ot F41.9 ANXIETY DISORDER, UNSPECIFIED 01/11/2018 MIRANDA LOCO DO Ot G89.29 OTHER CHRONIC PAIN 01/11/2018 MIRANDA LOCO DO Ot M54.5 LOW BACK PAIN 01/11/2018 MIRANDA LOCO DO Ot Z86.79 PERSONAL HISTORY OF OTHER DISEASES OF TH 01/11/2018 MIRANDA LOCO DO Ot Z87.42 PERSONAL HISTORY OF OTH DISEASES OF THE 01/11/2018 MIRANDA LOCO DO Ot Z88.0 ALLERGY STATUS TO PENICILLIN 01/11/2018 MIRANDA LOCO DO Ot Z88.1 ALLERGY STATUS TO OTHER ANTIBIOTIC AGENT 01/11/2018 CLAUDY BLANTONMIRANDA Ot Z88.6 ALLERGY STATUS TO ANALGESIC AGENT STATUS 01/11/2018 CLAUDY BLANTONMIRANDA Ot Z90.710 ACQUIRED ABSENCE OF BOTH CERVIX AND UTER 01/11/2018 CLAUDY BLANTONMIRANDA Ot Z90.89 ACQUIRED ABSENCE OF OTHER ORGANS 04/27/2018 ISMAEL SOL APRN Ot F31 .9 BIPOLAR DISORDER, UNSPECIFIED 04/27/2018 ISMAEL SOL APRN Ot F41 .9 ANXIETY DISORDER, UNSPECIFIED 04/27/2018 ISMAEL SOL APRN [...] OF THE 04/27/2018 ISMAEL SOL APRN Ot Z88 .0 ALLERGY STATUS TO PENICILLIN 04/27/2018 ISMAEL SOL APRN Ot Z88 .1 ALLERGY STATUS TO OTHER ANTIBIOTIC AGENT 04/27/2018 ISMAEL SOL APRN Ot Z90.710 ACQUIRED ABSENCE OF BOTH CERVIX AND UTER 04/27/2018 ISMAEL SOL APRN Ot Z90.89 ACQUIRED ABSENCE OF OTHER ORGANS 04/30/2018 ISMAEL SOL APRN Ot F31 .9 BIPOLAR DISORDER, UNSPECIFIED 04/30/2018 ISMAEL SOL APRN Ot F41 .9 ANXIETY DISORDER, UNSPECIFIED 04/30/2018 ISMAEL SOL APRN [...] OF THE 04/30/2018 ISMAEL SOL APRN Ot Z88 .0 ALLERGY STATUS TO PENICILLIN 04/30/2018 ISMAEL SOL APRN Ot Z88 .1 ALLERGY STATUS TO OTHER ANTIBIOTIC AGENT 04/30/2018 [...] PERINEAL PAIN 07/05/2018 DAVID SANDERS MD Ot F32. 9 MAJOR DEPRESSIVE DISORDER, SINGLE EPISOD 07/05/2018 DAVID SANDERS MD Ot R00. 2 PALPITATIONS 07/05/2018 DAVID SANDERS MD Ot R07. 89 OTHER CHEST PAIN 07/12/2018 DAVID SANDERS MD Ot F32. 9 MAJOR DEPRESSIVE DISORDER, SINGLE EPISOD 07/12/2018 DAVID SANDERS MD Ot R00. 2 PALPITATIONS 07/12/2018 DAVID SANDERS MD Ot R07. 89 OTHER CHEST PAIN 07/18/2018 DAVID SANDERS MD Ot F32. 9 MAJOR DEPRESSIVE DISORDER, SINGLE EPISOD 07/18/2018 DAVID SANDERS MD Ot R00. 2 PALPITATIONS 07/18/2018 DAVID SANDERS MD Ot R07. 89 OTHER CHEST PAIN 08/05/2018 ISMAEL SOL APRN Ot F17.210 NICOTINE DEPENDENCE, CIGARETTES, UNCOMPL 08/05/2018 ISMAEL SOL APRN Ot F31 .9 BIPOLAR DISORDER, UNSPECIFIED 08/05/2018 ISMAEL SOL APRN Ot F41 .9 ANXIETY DISORDER, UNSPECIFIED 08/05/2018 ISMAEL SOL APRN Ot F43.10 POST-TRAUMATIC STRESS DISORDER, UNSPECIF 08/05/2018 ISMAEL SOL APRN Ot I82.890 ACUTE EMBOLISM AND THROMBOSIS OF OTHER S 08/05/2018 ISMAEL SOL APRN Ot J45.909 UNSPECIFIED ASTHMA, UNCOMPLICATED 08/05/2018 ISMAEL SOL APRN Ot R10.32 LEFT LOWER QUADRANT PAIN 08/05/2018 ISMAEL SOL APRN Ot Z79.52 GAS PUMP ATTENDANT (CURRENT) USE OF SYSTEMIC STER 08/05/2018 ISMAEL SOL APRN Ot Z87.448 PERSONAL HISTORY OF OTHER DISEASES OF UR 08/05/2018 ISMAEL SOL APRN Ot Z88 .0 ALLERGY STATUS TO PENICILLIN 08/05/2018 ISMAEL SOL APRN Ot Z88 .6 ALLERGY STATUS TO ANALGESIC AGENT STATUS 08/05/2018 ISMAEL SOL APRN Ot Z88 .8 ALLERGY STATUS TO OTH DRUG/MEDS/BIOL SUB 08/05/2018 ISMAEL SOL APRN Ot Z90.710 ACQUIRED ABSENCE OF BOTH CERVIX AND UTER 08/05/2018 ISMAEL SOL APRN Ot Z90.89 ACQUIRED ABSENCE OF OTHER ORGANS 08/07/2018 ISMAEL SOL APRN Ot F17.210 NICOTINE DEPENDENCE, CIGARETTES, UNCOMPL 08/07/2018 ISMAEL SOL APRN Ot F31 .9 BIPOLAR DISORDER, UNSPECIFIED 08/07/2018 ISMAEL SOL APRN Ot F41 .9 ANXIETY DISORDER, UNSPECIFIED 08/07/2018 ISMAEL SOL APRN Ot F43.10 POST-TRAUMATIC STRESS DISORDER, UNSPECIF 08/07/2018 ISMAEL SOL APRN Ot I82.890 ACUTE EMBOLISM AND THROMBOSIS OF OTHER S 08/07/2018 ISMAEL SOL APRN Ot J45.909 UNSPECIFIED ASTHMA, UNCOMPLICATED 08/07/2018 ISMAEL SOL APRN Ot R10.32 LEFT LOWER QUADRANT PAIN 08/07/2018 ISMAEL SOL APRN Ot Z79.52 GAS PUMP ATTENDANT (CURRENT) USE OF SYSTEMIC STER 08/07/2018 ISMAEL SOL APRN Ot Z87.448 PERSONAL HISTORY OF OTHER DISEASES OF UR 08/07/2018 ISMAEL SOL APRN Ot Z88 .0 ALLERGY STATUS TO PENICILLIN 08/07/2018 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 Ot Z88 .6 ALLERGY STATUS TO ANALGESIC AGENT STATUS 08/07/2018 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 Ot Z88 .8 ALLERGY STATUS TO OTH DRUG/MEDS/BIOL SUB 08/07/2018 ISMAEL SOL APRN Ot Z90.710 ACQUIRED ABSENCE OF BOTH CERVIX AND UTER 08/07/2018 ISMAEL SOL APRN Ot Z90.89 ACQUIRED ABSENCE OF OTHER ORGANS 09/24/2018 WOLF JAMA MD Ot 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 09/24/2018 WOLF JAMA MD Ot 724 .2 LUMBAGO 09/24/2018 WOLF JAMA MD Ot 729 .5 PAIN IN LIMB 09/24/2018 JENNIFER MAYES MD Ot 240.9 GOITER NOS 09/24/2018 JENNIFER MAYES MD Ot 789.01 ABDOMINAL PAIN, RIGHT UPPER QUADRANT 09/24/2018 MADLFLO THEORETICAL PHYSICIST Ot 724 .2 LUMBAGO 09/24/2018 MADLFLO THEORETICAL PHYSICIST Ot 785 .1 PALPITATIONS 09/24/2018 FELICIA RESTREPO APRN Ot Z87.42 PERSONAL HISTORY OF OTH DISEASES OF THE 09/24/2018 JENNIFER MAYES MD Ot O36.0930 MATERNAL CARE FOR OTH RHESUS ISOIMMUN, T 09/24/2018 JENNIFER MAYES MD Ot Z23 ENCOUNTER FOR IMMUNIZATION 09/24/2018 JENNIFER MAYES MD, Ot Z3A.00 WEEKS OF GESTATION OF NOT SPEC 02/19/2019 DARY REDMAN MD Ot R10.32 LEFT LOWER QUADRANT PAIN 02/19/2019 DARY REDMAN MD Ot R11.0 NAUSEA 02/27/2019 DAVID SANDERS MD Ot F32. 9 MAJOR DEPRESSIVE DISORDER, SINGLE EPISOD 02/27/2019 DAVID SANDERS MD Ot R00. 2 PALPITATIONS 02/27/2019 DAVID SANDERS MD Ot R07. 89 OTHER CHEST PAIN 02/27/2019 DAVID SANDERS MD Ot F32. 9 MAJOR DEPRESSIVE DISORDER, SINGLE EPISOD 02/27/2019 DAVID SANDERS MD Ot R00. 2 PALPITATIONS 02/27/2019 MARILYN JONES, DAVID Dickens Ot R07. 89 OTHER CHEST PAIN 03/04/2019 CORNEL JONES, ERIKA Shin Ot F31. 9 BIPOLAR DISORDER, UNSPECIFIED 03/04/2019 CORNEL JONES, ERIKA Shin Ot F41. 9 ANXIETY DISORDER, UNSPECIFIED 03/04/2019 CORNEL JONES, ERIKA Shin Ot F43. 10 POST-TRAUMATIC STRESS DISORDER, UNSPECIF 03/04/2019 CORNEL JONES, ERIKA Shin Ot J45.909 UNSPECIFIED ASTHMA, UNCOMPLICATED 03/04/2019 CORNEL JONES, ERIKA Shin Ot M54. 5 LOW BACK PAIN 03/04/2019 CORNEL JONES, ERIKA Shin Ot Z77. 22 CNTCT W AND EXPSR TO ENVIRON TOBACCO SMO 03/04/2019 CORNEL JONES, ERIKA Shin Ot Z79. 52 LONGTERM (CURRENT) USE OF SYSTEMIC STER 03/04/2019 CORNEL JONES, ERIKA Shin Ot Z87.448 PERSONAL HISTORY OF OTHER DISEASES OF UR 03/04/2019 CORNEL JONES, ERIKA Shin Ot Z88. 0 ALLERGY STATUS TO PENICILLIN 03/04/2019 CORNEL JONES, ERIKA Shin Ot Z88. 8 ALLERGY STATUS TO OTH DRUG/MEDS/BIOL SUB 03/04/2019 CORNEL JONES, ERIKA Shin Ot Z90.710 ACQUIRED ABSENCE OF BOTH CERVIX AND UTER 03/04/2019 CORNEL JONES, ERIKA Shin Ot Z90. 89 ACQUIRED ABSENCE OF OTHER ORGANS 03/04/2019 CORNEL JONES, ERIKA Shin Ot Z98.890 OTHER SPECIFIED POSTPROCEDURAL STATES 03/07/2019 CORNEL JONES, ERIKA Shin Ot F31. 9 BIPOLAR DISORDER, UNSPECIFIED 03/07/2019 CORNEL JONES, ERIKA Shin Ot F41. 9 ANXIETY DISORDER, UNSPECIFIED 03/07/2019 CORNEL JONES, ERIKA Shin Ot F43. 10 POST-TRAUMATIC STRESS DISORDER, UNSPECIF 03/07/2019 CORNEL JONES, ERIKA Shin Ot J45.909 UNSPECIFIED ASTHMA, UNCOMPLICATED 03/07/2019 CORNEL JONES, ERIKA Shin Ot M54. 5 LOW BACK PAIN 03/07/2019 CORNEL JONES, ERIKA Shin Ot Z77. 22 CNTCT W AND EXPSR TO ENVIRON TOBACCO SMO 03/07/2019 CORNEL JONES, ERIKA Shin Ot Z79. 52 LONGTERM (CURRENT) USE OF SYSTEMIC STER 03/07/2019 CORNEL JONES, ERIKA Shin Ot Z87.448 PERSONAL HISTORY OF OTHER DISEASES OF UR 03/07/2019 CORNEL JONES, ERIKA Shin Ot Z88. 0 ALLERGY STATUS TO PENICILLIN 03/07/2019 CORNEL JONES, ERIKA Shin Ot Z88. 8 ALLERGY STATUS TO OTH DRUG/MEDS/BIOL SUB 03/07/2019 CORNEL JONES, ERIKA Shin Ot Z90.710 ACQUIRED ABSENCE OF BOTH CERVIX AND UTER 03/07/2019 CORNEL JONES, ERIKA Shin Ot Z90. 89 ACQUIRED ABSENCE OF OTHER ORGANS 03/07/2019 CORNEL JONES, ERIKA Shin Ot Z98.890 OTHER SPECIFIED POSTPROCEDURAL STATES 05/27/2019 MIRANDA LOCO DO Ot F31.9 BIPOLAR DISORDER, UNSPECIFIED 05/27/2019 MIRANDA LOCO DO Ot F41.9 ANXIETY DISORDER, UNSPECIFIED 05/27/2019 MIRANDA LOCO DO Ot F43.10 POST-TRAUMATIC STRESS DISORDER, UNSPECIF 05/27/2019 MIRANDA LOCO DO Ot G89.29 OTHER CHRONIC PAIN 05/27/2019 ARSEN LOCO DOA Jacinta Ot J45.909 UNSPECIFIED ASTHMA, UNCOMPLICATED 05/27/2019 ARSEN LOCO DOA K Ot K59.00 CONSTIPATION, UNSPECIFIED 05/27/2019 MIRANDA LOCO DO Ot M54.9 DORSALGIA, UNSPECIFIED 05/27/2019 MIRANDA LOCO DO Ot R10.30 LOWER ABDOMINAL PAIN, UNSPECIFIED 05/27/2019 MIRANDA LOCO DO Ot W18.30X A FALL ON SAME LEVEL, UNSPECIFIED, INITIAL 05/27/2019 MIRANDA LOCO DO Ot Z77.22 CNTCT W AND EXPSR TO ENVIRON TOBACCO SMO 05/27/2019 MIRANDA LOCO DO Ot Z82.49 FAMILY HX OF ISCHEM HEART DIS AND OTH DI 05/27/2019 MIRANDA LOCO DO Ot Z88.0 ALLERGY STATUS TO PENICILLIN 05/27/2019 ARSEN LOCO DOA Jacinta Ot Z88.5 ALLERGY STATUS TO NARCOTIC AGENT STATUS 05/27/2019 MIRANDA LOCO DO Ot Z88.8 ALLERGY STATUS TO OTH DRUG/MEDS/BIOL SUB 05/27/2019 ARSEN LOCO DOMaddy Workman Ot Z90.710 ACQUIRED ABSENCE OF BOTH CERVIX AND UTER 05/27/2019 MIRANDA LOCO DO Ot Z90.89 ACQUIRED ABSENCE OF OTHER ORGANS 05/29/2019 DARY REDMAN MD Ot R10.32 LEFT LOWER QUADRANT PAIN 05/29/2019 DARY REDMAN MD Ot R11.0 NAUSEA 05/29/2019 DARY REDMAN MD, Ot R10.9 UNSPECIFIED ABDOMINAL PAIN 05/29/2019 DARY REDMAN MD, Ot Z90.71 0 ACQUIRED ABSENCE OF BOTH CERVIX AND UTER 06/03/2019 MIRANDA LOCO DO Ot F31.9 BIPOLAR DISORDER, UNSPECIFIED 06/03/2019 CLAUDY MIRANDA BLANTON Ot F41.9 ANXIETY DISORDER, UNSPECIFIED 06/03/2019 CLAUDY MIRANDA BLANTON Ot F43.10 POST-TRAUMATIC STRESS DISORDER, UNSPECIF 06/03/2019 CLAUDY MIRANDA BLANTON Ot G89.29 OTHER CHRONIC PAIN 06/03/2019 MIRANDA LOCO DO Ot J45.909 UNSPECIFIED ASTHMA, UNCOMPLICATED 06/03/2019 [place] MIRANDA BLANTON Ot K59.00 CONSTIPATION, UNSPECIFIED 06/03/2019 [place] MIRANDA BLANTON Ot M54.9 DORSALGIA, UNSPECIFIED 06/03/2019 CLAUDY MIRANDA BLANTON Ot R10.30 LOWER ABDOMINAL PAIN, UNSPECIFIED 06/03/2019 CLAUDY MIRANDA BLANTON Ot W18.30X A FALL ON SAME LEVEL, UNSPECIFIED, INITIAL 06/03/2019 MIRANDA LOCO DO Ot Z77.22 CNTCT W AND EXPSR TO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 by light microscopy NEGTIVE NRG Complete urinalysis with reflex to culture NO NRG Bacterial urine culture - 11/08/16 18:45 URINE CULTURE RESULTS <10,000/ML NRG Automated blood complete blood count (he mogram) panel - 11/08/16 19:04 Blood leukocytes automated count (number/volume) 16.5 10*3/uL 4.3-11.0 Blood erythrocytes automated count (number/volume) 3.85 10*6/uL 4.35-5.85 Venous blood hemoglobin measurement (mass/volume) 11.8 g/dL 11.5-16.0 Blood hematocrit (volume fraction) 35 % 35-52 Automated erythrocyte mean corpuscular volume 90 [ foz_us] 80-99 Automated erythrocyte mean corpuscular h emoglobin (mass per erythrocyte) 31 pg 25-34 Automated erythrocyte mean corpuscular h emoglobin concentration measurement (mass/volume) 34 g/dL 32-36 Automated erythrocyte distribution width ratio 13. 2 % 10.0- 14.5 Automated blood platelet count (count/volume) 263 10*3/uL 130-400 Automated blood platelet mean volume measurement 10.9 [foz_us] 7.4-10.4 [id number] - 11/08/16 19:04 [id number] SPECIMEN AVAILABLE NR Complete blood count (CBC) with automate d white blood cell (WBC) differential - 11/26/16 13:55 Blood leukocytes automated count (number/volume) 13.8 10*3/uL 4.3-11.0 Blood erythrocytes automated count (number/volume) 3.93 10*6/uL 4.35-5.85 Venous blood hemoglobin measurement (mass/volume) 11.7 g/dL 11.5-16.0 Blood hematocrit (volume fraction) 35 % 35-52 Automated erythrocyte mean corpuscular volume 90 [ foz_us] 80-99 Automated erythrocyte mean corpuscular h emoglobin (mass per erythrocyte) 30 pg 25-34 Automated erythrocyte mean corpuscular h emoglobin concentration measurement (mass/volume) 33 g/dL 32-36 Automated erythrocyte distribution width ratio 13. 7 % 10.0- 14.5 Automated blood platelet count [...] 10*3 1.0-4.0 Blood monocytes automated count (number/volume) 1. 1 10*3 0.0-1.0 Automated eosinophil count 0.2 10*3/uL 0 .0-0.3 Automated blood basophil count (count/volume) 0.0 10*3/uL 0.0-0.1 Comprehensive metabolic panel - 11/26/16 13:55 Serum or plasma sodium measurement (moles/volume) 138 mmol/L 135-145 Serum or plasma potassium measurement (moles/volume) 3.7 mmol/L 3.6-5.0 Serum or plasma chloride measurement (moles/volume) 106 mmol/L 98-107 Carbon dioxide 21 mmol/L 21-32 Serum or plasma anion gap determination (moles/volume) 11 mmol/L 5-14 Serum or plasma urea nitrogen measurement (mass/volume ) 6 mg/dL 7-18 Serum or plasma creatinine measurement (mass/volume) 0.56 mg/dL 0.60-1.30 Serum or plasma urea nitrogen/creatinine mass ratio 11 NRG Serum or plasma creatinine measurement w ith calculation of estimated glomerular filtration rate > NRG Serum or plasma glucose measurement (mass/volume) 104 mg/dL 70-105 Serum or plasma calcium measurement (mass/volume) 8.9 mg/dL 8.5-10.1 Serum or plasma total bilirubin measurement (mass/volu me) 0.4 mg/dL 0.1-1.0 Serum or plasma alkaline phosphatase lois surement (enzymatic activity/volume) 158 U/L 40-136 Serum or plasma aspartate aminotransfera se measurement (enzymatic activity/volume) 15 U/L 5-34 Serum or plasma alanine aminotransferase measurement (enzymatic activity/volume) 9 U/L 0-55 Serum or plasma protein measurement (mass/volume) 6.1 g/dL 6.4-8.2 Serum or plasma albumin measurement (mass/volume) 3.4 g/dL 3.2-4.5 Complete blood count (CBC) with automate d white blood cell (WBC) differential - 11/29/16 17:15 Blood leukocytes automated count (number/volume) 14.8 10*3/uL 4.3-11.0 Blood erythrocytes automated count (number/volume) 3.87 10*6/uL 4.35-5.85 Venous blood hemoglobin measurement (mass/volume) 11.6 g/dL 11.5-16.0 Blood hematocrit (volume fraction) 35 % 35-52 Automated erythrocyte mean corpuscular volume 89 [ foz_us] 80-99 Automated erythrocyte mean corpuscular h emoglobin (mass per erythrocyte) 30 pg 25-34 Automated erythrocyte mean corpuscular h emoglobin concentration measurement (mass/volume) 34 g/dL 32-36 Automated erythrocyte distribution width ratio 13. 7 % 10.0- 14.5 Automated blood platelet count [...] 10*3 1.0-4.0 Blood monocytes automated count (number/volume) 1. 3 10*3 0.0-1.0 Automated eosinophil count 0.2 10*3/uL 0 .0-0.3 Automated blood basophil count (count/volume) 0.0 10*3/uL 0.0-0.1 Blood manual differential performed dete ction - 11/29/16 17:15 Blood monocytes/100 leukocytes 1 % NRG Manual blood segmented neutrophils/100 leukocytes 70 % NRG Blood band neutrophils/100 leukocytes 1 % NRG Manual blood lymphocytes/100 leukocytes 24 % NRG Manual eosinophils/100 leukocytes in nose 4 % NRG Manual blood basophils/100 leukocytes 0 % NRG Blood erythrocyte morphology finding identification NORMAL NRG Blood type T Indirect antibody screen pa trae - 11/29/16 17:15 ABO+Rh group AN NRG Transfusion band number [id number] NRG Blood group antibody screen NEGATIVE NR G Microscopic examination by wet preparati on - 11/29/16 17:30 WET PREP RESULTS NO YEAST OBSERVED, NO TRICH OMONAS OBSERVED NRG Complete blood count (CBC) with automate d white blood cell (WBC) differential - 12/02/16 10:55 Blood leukocytes automated count (number/volume) 13.8 10*3/uL 4.3-11.0 Blood erythrocytes automated count (number/volume) 3.78 10*6/uL 4.35-5.85 Venous blood hemoglobin measurement (mass/volume) 11.4 g/dL 11.5-16.0 Blood hematocrit (volume fraction) 34 % 35-52 Automated erythrocyte mean corpuscular volume 89 [ foz_us] 80-99 Automated erythrocyte mean corpuscular h emoglobin (mass per erythrocyte) 30 pg 25-34 Automated erythrocyte mean corpuscular h emoglobin concentration measurement (mass/volume) 34 g/dL 32-36 Automated erythrocyte distribution width ratio 13. 7 % 10.0- 14.5 Automated blood platelet count [...] 10*3 1.0-4.0 Blood monocytes automated count (number/volume) 1. 5 10*3 0.0-1.0 Automated eosinophil count 0.3 10*3/uL 0 .0-0.3 Automated blood basophil count (count/volume) 0.0 10*3/uL 0.0-0.1 Comprehensive metabolic panel - 12/02/16 10:55 Serum or plasma sodium measurement (moles/volume) 137 mmol/L 135-145 Serum or plasma potassium measurement (moles/volume) 3.7 mmol/L 3.6-5.0 Serum or plasma chloride measurement (moles/volume) 106 mmol/L 98-107 Carbon dioxide 23 mmol/L 21-32 Serum or plasma anion gap determination (moles/volume) 8 mmol/L 5-14 Serum or plasma urea nitrogen measurement (mass/volume ) 8 mg/dL 7-18 Serum or plasma creatinine measurement (mass/volume) 0.59 mg/dL 0.60-1.30 Serum or plasma urea nitrogen/creatinine mass ratio 14 NRG Serum or plasma creatinine measurement w ith calculation of estimated glomerular filtration rate > NRG Serum or plasma glucose measurement (mass/volume) 75 mg/dL 70-105 Serum or plasma calcium measurement (mass/volume) 8.6 mg/dL 8.5-10.1 Serum or plasma total bilirubin measurement (mass/volu me) 0.2 mg/dL 0.1-1.0 Serum or plasma alkaline phosphatase lois surement (enzymatic activity/volume) 128 U/L 40-136 Serum or plasma aspartate aminotransfera se measurement (enzymatic activity/volume) 22 U/L 5-34 Serum or plasma alanine aminotransferase measurement (enzymatic activity/volume) 11 U/L 0-55 Serum or plasma protein measurement (mass/volume) 6.0 g/dL 6.4-8.2 Serum or plasma albumin measurement (mass/volume) 3.1 g/dL 3.2-4.5 Magnesium - 12/02/16 10:55 Magnesium 1.7 mg/dL 1.8-2.4 Serum or plasma troponin i.cardiac measu rement (mass/volume) - 12/02/16 10:55 Serum or plasma troponin i.cardiac measurement (mass/v olume) < ng/mL <0.30 Serum or plasma thyrotropin measurement by detection limit <=0.05 miu/l (units/volume) - 12/02/16 10:55 Serum or plasma thyrotropin measurement by detection limit <=0.05 miu/l (units/volume) 2.16 u[iU]/mL 0.35-4.94 Serum or plasma ethanol measurement (mas s/volume) - 12/02/16 10:55 Serum or plasma ethanol measurement (mass/volume) < mg/dL <10 Urine drug screening test - 12/02/16 13: 00 Urine phencyclidine detection by screening method NEGATIVE NEGATIVE Urine benzodiazepines detection by screening method POSITIVE NEGATIVE Urine cocaine detection NEGATIVE NEGATI VE Urine amphetamines detection by screening method N EGATIVE NEGATIVE Urine methamphetamine detection by screening method NEGATIVE NEGATIVE Urine cannabinoids detection by screening method N EGATIVE NEGATIVE Urine opiates detection by screening method NEGATI VE NEGATIVE Urine barbiturates detection NEGATIVE N EGATIVE Screening urine tricyclic antidepressants detection NEGATIVE NEGATIVE Urine methadone detection by screening method NEGA TIVE NEGATIVE Urine oxycodone detection POSITIVE NEGA TIVE Urine propoxyphene detection NEGATIVE N EGATIVE Complete urinalysis with reflex to cultu re - 12/02/16 13:00 Urine color determination YELLOW NRG Urine clarity determination CLEAR NR G Urine pH measurement by test strip 7 5-9 Specific gravity of urine by test strip 1.005 1.016-1.022 Urine protein assay by test strip, semi-quantitative NEGATIVE NEGATIVE Urine glucose detection by automated test strip NE GATIVE NEGATIVE Erythrocytes detection in urine sediment by light micr oscopy NEGATIVE NEGATIVE Urine ketones detection by automated test strip NE GATIVE NEGATIVE Urine nitrite detection by test strip NEGATIVE NEGATIVE Urine total bilirubin detection by test strip NEGA TIVE NEGATIVE Urine urobilinogen measurement by automated test strip (mass/volume) NORMAL NORMAL Urine leukocyte esterase detection by dipstick NEG ATIVE NEGATIVE Automated urine sediment erythrocyte cou nt by microscopy (number/high power field) NONE NRG Automated urine sediment leukocyte count by microscopy (number/high power field) NONE NRG Bacteria detection in urine sediment by light microsco py NEGATIVE NRG Squamous epithelial cells detection in u rine sediment by light microscopy 0-2 NRG Crystals detection in urine sediment by light microsco py NONE NRG Casts detection in urine sediment by light microscopy NONE NRG Mucus detection in urine sediment by light microscopy NEGATIVE NRG Complete urinalysis with reflex to culture NO NRG Complete blood count (CBC) with automate d white blood cell (WBC) differential - 12/16/16 01:24 Blood leukocytes automated count (number/volume) 6.7 10*3/uL 4.3-11.0 Blood erythrocytes automated count (number/volume) 4.19 10*6/uL 4.35-5.85 Venous blood hemoglobin measurement (mass/volume) 12.6 g/dL 11.5-16.0 Blood hematocrit (volume fraction) 38 % 35-52 Automated erythrocyte mean corpuscular volume 91 [ foz_us] 80-99 Automated erythrocyte mean corpuscular h emoglobin (mass per erythrocyte) 30 pg 25-34 Automated erythrocyte mean corpuscular h emoglobin concentration measurement (mass/volume) 33 g/dL 32-36 Automated erythrocyte distribution width ratio 13. 7 % 10.0- 14.5 Automated blood platelet count [...] 10*3 1.0-4.0 Blood monocytes automated count (number/volume) 0. 7 10*3 0.0-1.0 Automated eosinophil count 0.4 10*3/uL 0 .0-0.3 Automated blood basophil count (count/volume) 0.0 10*3/uL 0.0-0.1 Comprehensive metabolic panel - 12/16/16 01:24 Serum or plasma sodium measurement (moles/volume) 138 mmol/L 135-145 Serum or plasma potassium measurement (moles/volume) 4.1 mmol/L 3.6-5.0 Serum or plasma chloride measurement (moles/volume) 107 mmol/L 98-107 Carbon dioxide 21 mmol/L 21-32 Serum or plasma anion gap determination (moles/volume) 10 mmol/L 5-14 Serum or plasma urea nitrogen measurement (mass/volume ) 9 mg/dL 7-18 Serum or plasma creatinine measurement (mass/volume) 0.77 mg/dL 0.60-1.30 Serum or plasma urea nitrogen/creatinine mass ratio 12 NRG Serum or plasma creatinine measurement w ith calculation of estimated glomerular filtration rate > NRG Serum or plasma glucose measurement (mass/volume) 94 mg/dL 70-105 Serum or plasma calcium measurement (mass/volume) 8.9 mg/dL 8.5-10.1 Serum or plasma total bilirubin measurement (mass/volu me) 0.3 mg/dL 0.1-1.0 Serum or plasma alkaline phosphatase lois surement (enzymatic activity/volume) 86 U/L 40-136 Serum or plasma aspartate aminotransfera se measurement (enzymatic activity/volume) 18 U/L 5-34 Serum or plasma alanine aminotransferase measurement (enzymatic activity/volume) 12 U/L 0-55 Serum or plasma protein measurement (mass/volume) 6.5 g/dL 6.4-8.2 Serum or plasma albumin measurement (mass/volume) 3.9 g/dL 3.2-4.5 Serum or plasma C reactive protein measu rement (mass/volume) - 12/16/16 01:24 Serum or plasma C reactive protein measurement (mass/v olume) 0.16 mg/dL 0.00-0.50 Complete urinalysis with reflex to cultu re - 12/16/16 01:57 Urine color determination YELLOW NRG Urine clarity determination SLIGHTLY CLOUDY NRG Urine pH measurement by test strip 7 5-9 Specific gravity of urine by test strip 1.010 1.016-1.022 Urine protein assay by test strip, semi-quantitative 1+ NEGATIVE Urine glucose detection by automated test strip NE GATIVE NEGATIVE Erythrocytes detection in urine sediment by light micr oscopy 5+ NEGATIVE Urine ketones detection by automated test strip NE GATIVE NEGATIVE Urine nitrite detection by test strip NEGATIVE NEGATIVE Urine total bilirubin detection by test strip NEGA TIVE NEGATIVE Urine urobilinogen measurement by automated test strip (mass/volume) 1 mg/dL NORMAL Urine leukocyte esterase detection by dipstick 2+ NEGATIVE Automated urine sediment erythrocyte cou nt by microscopy (number/high power field) [HPF] NRG Automated urine sediment leukocyte count by microscopy (number/high power field) [HPF] NRG Bacteria detection in urine sediment by light microsco py TRACE NRG Squamous epithelial cells detection in u rine sediment by light microscopy 5-10 NRG Crystals detection in urine sediment by light microsco py NONE NRG Casts detection in urine sediment by light microscopy NONE NRG Mucus detection in urine sediment by light microscopy SMALL NRG Complete urinalysis with reflex to culture YES NRG Bacterial urine culture - 12/16/16 01:57 Bacterial urine culture NG NRG Methicillin resistant Staphylococcus aur eus (MRSA) screening culture - 01/04/17 12:27 Methicillin resistant Staphylococcus aureus (MRSA) scr eening culture NEG NRG Urine beta human chorionic gonadotropin (hCG) measurement - 01/09/17 10:55 Urine beta human chorionic gonadotropin (hCG) measurem ent NEGATIVE NEGATIVE Blood type T Indirect antibody screen pa trae - 01/09/17 11:04 ABO+Rh group AN NRG Transfusion band number [id number] NRG Blood group antibody screen NEGATIVE NR G Complete blood count (CBC) with automate d white blood cell (WBC) differential - 11/30/17 10:20 Blood leukocytes automated count (number/volume) 6.2 10*3/uL 4.3-11.0 Blood erythrocytes automated count (number/volume) 4.52 10*6/uL 4.35-5.85 Venous blood hemoglobin measurement (mass/volume) 13.7 g/dL 11.5-16.0 Blood hematocrit (volume fraction) 40 % 35-52 Automated erythrocyte mean corpuscular volume 88 [ foz_us] 80-99 Automated erythrocyte mean corpuscular h emoglobin (mass per erythrocyte) 30 pg 25-34 Automated erythrocyte mean corpuscular h emoglobin concentration measurement (mass/volume) 35 g/dL 32-36 Automated erythrocyte distribution width ratio 13. 2 % 10.0- 14.5 Automated blood platelet count [...] 10*3 1.0-4.0 Blood monocytes automated count (number/volume) 0. 8 10*3 0.0-1.0 Automated eosinophil count 0.2 10*3/uL 0 .0-0.3 Automated blood basophil count (count/volume) 0.0 10*3/uL 0.0-0.1 Methicillin resistant Staphylococcus aur eus (MRSA) screening culture - 11/30/17 10:20 MRSA SCREEN RESULT MRSA ISOLATED [facility] LIPID PANEL - 02/21/18 10:29 CHOLESTEROL, TOTAL 155 mg/dL <200 HDL CHOLESTEROL 62 mg/dL >50 TRIGLYCERIDES 61 mg/dL <150 LDL-CHOLESTEROL 79 mg/dL (calc) NRG CHOL/HDLC RATIO 2.5 (calc) <5.0 NON HDL CHOLESTEROL 93 mg/dL (calc) <130 CMP - 02/21/18 10:29 GLUCOSE 84 mg/dL 65-99 UREA NITROGEN (BUN) 16 mg/dL 7-25 CREATININE 0.63 mg/dL 0.50-1.10 eGFR NON-AFR. [place] 123 mL/min/1.73m2 > OR = 60 eGFR 142 mL/min/1.73m2 > OR = 60 BUN/CREATININE RATIO NOT APPLICABLE (calc) 6-22 SODIUM 138 mmol/L 135-146 POTASSIUM 3.8 mmol/L 3.5-5.3 CHLORIDE 109 mmol/L 98-110 CARBON DIOXIDE 27 mmol/L 20-31 CALCIUM 9.6 mg/dL 8.6-10.2 PROTEIN, TOTAL 6.9 g/dL 6.1-8.1 ALBUMIN 4.4 g/dL 3.6-5.1 GLOBULIN 2.5 g/dL (calc) 1.9-3.7 ALBUMIN/GLOBULIN RATIO 1.8 (calc) 1.0-2. 5 BILIRUBIN, TOTAL 0.5 mg/dL 0.2-1.2 ALKALINE PHOSPHATASE 54 U/L 33-115 AST 16 U/L 10-30 ALT 10 U/L 6-29 CULTURE, URINE - 03/30/18 13:46 CULTURE, URINE, ROUTINE SEE NOTE NRG PDM - ATS (PROFILE 8 WITH CONFIRMATION) - 05/17/18 10:32 Prescribed Drug 1 Klonopin(TM) NRG Creatinine 190.3 mg/dL > or = 20.0 pH 5.81 4.5 - 9.0 Oxidant NEGATIVE [...] NEGATIVE ng/mL <10 medMATCH 6 Acetylmorphine CONSISTENT NR G Alphahydroxyalprazolam NEGATIVE ng/mL <25 medMATCH aOH alprazolam CONSISTENT NRG Alphahydroxymidazolam NEGATIVE ng/mL < 50 medMATCH aOH midazolam CONSISTENT NRG Alphahydroxytriazolam NEGATIVE ng/mL < 50 medMATCH aOH triazolam CONSISTENT NRG Aminoclonazepam 372 ng/mL <25 medMATCH Aminoclonazepam CONSISTENT NRG Hydroxyethylflurazepam NEGATIVE ng/mL <50 medMATCH [place],Et flurazepam CONSISTENT NR G Lorazepam NEGATIVE ng/mL <50 medMATCH Lorazepam CONSISTENT NRG Nordiazepam NEGATIVE ng/mL <50 medMATCH Nordiazepam CONSISTENT NRG Oxazepam NEGATIVE ng/mL <50 medMATCH Oxazepam CONSISTENT NRG Temazepam NEGATIVE ng/mL <50 medMATCH Temazepam CONSISTENT NRG Prescribed Drug 2 Oxycodone NRG Prescribed Drug 3 Oxycodone NRG medMATCH Buprenorphine CONSISTENT NRG TSH - 05/25/18 12:47 TSH 1.14 mIU/L NRG Complete blood count (CBC) with automate d white blood cell (WBC) differential - 08/05/18 21:10 Blood leukocytes automated count (number/volume) 10.0 10*3/uL 4.3-11.0 Blood erythrocytes automated count (number/volume) 4.82 10*6/uL 4.35-5.85 Venous blood hemoglobin measurement (mass/volume) 14.5 g/dL 11.5-16.0 Blood hematocrit (volume fraction) 42 % 35-52 Automated erythrocyte mean corpuscular volume 88 [ foz_us] 80-99 Automated erythrocyte mean corpuscular h emoglobin (mass per erythrocyte) 30 pg 25-34 Automated erythrocyte mean corpuscular h emoglobin concentration measurement (mass/volume) 34 g/dL 32-36 Automated erythrocyte distribution width ratio 12. 3 % 10.0- 14.5 Automated blood platelet count [...] 10*3 1.0-4.0 Blood monocytes automated count (number/volume) 0. 9 10*3 0.0-1.0 Automated eosinophil count 0.2 10*3/uL 0 .0-0.3 Automated blood basophil count (count/volume) 0.0 10*3/uL 0.0-0.1 Complete urinalysis with reflex to cultu re - 08/05/18 21:10 Urine color determination YELLOW NRG Urine clarity determination CLEAR NR G Urine pH measurement by test strip 7 5-9 Specific gravity of urine by test strip 1.015 1.016-1.022 Urine protein assay by test strip, semi-quantitative NEGATIVE NEGATIVE Urine glucose detection by automated test strip NE GATIVE NEGATIVE Erythrocytes detection in urine sediment by light micr oscopy NEGATIVE NEGATIVE Urine ketones detection by automated test strip NE GATIVE NEGATIVE Urine nitrite detection by test strip NEGATIVE NEGATIVE Urine total bilirubin detection by test strip NEGA TIVE NEGATIVE Urine urobilinogen measurement by automated test strip (mass/volume) NORMAL NORMAL Urine leukocyte esterase detection by dipstick 1+ NEGATIVE Automated urine sediment erythrocyte cou nt by microscopy (number/high power field) [HPF] NRG Automated urine sediment leukocyte count by microscopy (number/high power field) [HPF] NRG Bacteria detection in urine sediment by light microsco py FEW NRG Squamous epithelial cells detection in u rine sediment by light microscopy 0-2 NRG Crystals detection in urine sediment by light microsco py PRESENT NRG Casts detection in urine sediment by light microscopy NONE NRG Mucus detection in urine sediment by light microscopy MODERATE NRG Complete urinalysis with reflex to culture NO NRG Amorphous sediment detection in urine sediment by ligh t microscopy MOD [place] URATES NRG Renal epithelial cells detection in urin e sediment by light microscopy NONE NRG Comprehensive metabolic panel - 08/05/18 21:10 Serum or plasma sodium measurement (moles/volume) 141 mmol/L 135-145 Serum or plasma potassium measurement (moles/volume) 3.9 mmol/L 3.6-5.0 Serum or plasma chloride measurement (moles/volume) 107 mmol/L 98-107 Carbon dioxide 24 mmol/L 21-32 Serum or plasma anion gap determination (moles/volume) 10 mmol/L 5-14 Serum or plasma urea nitrogen measurement (mass/volume ) 15 mg/dL 7-18 Serum or plasma creatinine measurement (mass/volume) 0.78 mg/dL 0.60-1.30 Serum or plasma urea nitrogen/creatinine mass ratio 19 NRG Serum or plasma creatinine measurement w ith calculation of estimated glomerular filtration rate > NRG Serum or plasma glucose measurement (mass/volume) 90 mg/dL 70-105 Serum or plasma calcium measurement (mass/volume) 9.6 mg/dL 8.5-10.1 Serum or plasma total bilirubin measurement (mass/volu me) 0.2 mg/dL 0.1-1.0 Serum or plasma alkaline phosphatase lois surement (enzymatic activity/volume) 53 U/L 40-136 Serum or plasma aspartate aminotransfera se measurement (enzymatic activity/volume) 11 U/L 5-34 Serum or plasma alanine aminotransferase measurement (enzymatic activity/volume) 10 U/L 0-55 Serum or plasma protein measurement (mass/volume) 7.4 g/dL 6.4-8.2 Serum or plasma albumin measurement (mass/volume) 4.6 g/dL 3.2-4.5 Urine beta human chorionic gonadotropin (hCG) measurement - 03/04/19 15:40 Urine beta human chorionic gonadotropin (hCG) measurem ent NEGATIVE NEGATIVE Complete urinalysis with reflex to cultu re - 03/04/19 15:40 Urine color determination YELLOW NRG Urine clarity determination SLIGHTLY CLOUDY NRG Urine pH measurement by test strip 6 5-9 Specific gravity of urine by test strip 1.020 1.016-1.022 Urine protein assay by test strip, semi-quantitative 1+ NEGATIVE Urine glucose detection by automated test strip NE GATIVE NEGATIVE Erythrocytes detection in urine sediment by light micr oscopy 1+ NEGATIVE Urine ketones detection by automated test strip 1+ NEGATIVE Urine nitrite detection by test strip NEGATIVE NEGATIVE Urine total bilirubin detection by test strip NEGA TIVE NEGATIVE Urine urobilinogen measurement by automated test strip (mass/volume) NORMAL NORMAL Urine leukocyte esterase detection by dipstick 1+ NEGATIVE Automated urine sediment erythrocyte cou nt by microscopy (number/high power field) [HPF] NRG Automated urine sediment leukocyte count by microscopy (number/high power field) RARE NRG Bacteria detection in urine sediment by light microsco py TRACE NRG Crystals detection in urine sediment by light microsco py NONE NRG Casts detection in urine sediment by light microscopy NONE NRG Mucus detection in urine sediment by light microscopy MODERATE NRG Complete urinalysis with reflex to culture NO NRG CMP - 03/11/19 10:18 GLUCOSE 84 mg/dL 65-99 UREA NITROGEN (BUN) 16 mg/dL 7-25 CREATININE 0.67 mg/dL 0.50-1.10 eGFR NON-AFR. UKRAINIAN 120 mL/min/1.73m2 > OR = 60 eGFR 139 mL/min/1.73m2 > OR = 60 BUN/CREATININE RATIO NOT APPLICABLE (calc) 6-22 SODIUM 138 mmol/L 135-146 POTASSIUM 4.0 mmol/L 3.5-5.3 CHLORIDE 104 mmol/L 98-110 CARBON DIOXIDE 29 mmol/L 20-32 CALCIUM 9.8 mg/dL 8.6-10.2 PROTEIN, TOTAL 7.6 g/dL 6.1-8.1 ALBUMIN 4.8 g/dL 3.6-5.1 GLOBULIN 2.8 g/dL (calc) 1.9-3.7 ALBUMIN/GLOBULIN RATIO 1.7 (calc) 1.0-2. 5 BILIRUBIN, TOTAL 0.5 mg/dL 0.2-1.2 ALKALINE PHOSPHATASE 56 U/L 33-115 AST 13 U/L 10-30 ALT 7 U/L 6-29 Complete urinalysis with reflex to cultu re - 05/27/19 20:51 Urine color determination YELLOW NRG Urine clarity determination VERY CLOUDY NRG Urine pH measurement by test strip 8 5-9 Specific gravity of urine by test strip 1.015 1.016-1.022 Urine protein assay by test strip, semi-quantitative NEGATIVE NEGATIVE Urine glucose detection by automated test strip NE GATIVE NEGATIVE Erythrocytes detection in urine sediment by light micr oscopy NEGATIVE NEGATIVE Urine ketones detection by automated test strip NE GATIVE NEGATIVE Urine nitrite detection by test strip NEGATIVE NEGATIVE Urine total bilirubin detection by test strip NEGA TIVE NEGATIVE Urine urobilinogen measurement by automated test strip (mass/volume) NORMAL NORMAL Urine leukocyte esterase detection by dipstick NEG ATIVE NEGATIVE Automated urine sediment erythrocyte cou nt by microscopy (number/high power field) NONE NRG Automated urine sediment leukocyte count by microscopy (number/high power field) NONE NRG Bacteria detection in urine sediment by light microsco py TRACE NRG Squamous epithelial cells detection in u rine sediment by light microscopy 0-2 NRG Crystals detection in urine sediment by light microsco py PRESENT NRG Casts detection in urine sediment by light microscopy NONE NRG Mucus detection in urine sediment by light microscopy NEGATIVE NRG Complete urinalysis with reflex to culture NO NRG Amorphous sediment detection in urine sediment by ligh t microscopy MOD CATERINA PHOSPHATE NRG Urine drug screening test - 05/27/19 20: 51 Urine phencyclidine detection by screening method NEGATIVE NEGATIVE Urine benzodiazepines detection by screening method POSITIVE NEGATIVE Urine cocaine detection NEGATIVE NEGATI VE Urine amphetamines detection by screening method N EGATIVE NEGATIVE Urine methamphetamine detection by screening method NEGATIVE NEGATIVE Urine cannabinoids detection by screening method N EGATIVE NEGATIVE Urine opiates detection by screening method NEGATI VE NEGATIVE Urine barbiturates detection NEGATIVE N EGATIVE Screening urine tricyclic antidepressants detection NEGATIVE NEGATIVE Urine methadone detection by screening method NEGA TIVE NEGATIVE Urine oxycodone detection NEGATIVE NEGA TIVE Urine propoxyphene detection NEGATIVE N EGATIVE Complete blood count (CBC) with automate d white blood cell (WBC) differential - 05/27/19 21:57 Blood leukocytes automated count (number/volume) 7.8 10*3/uL 4.3-11.0 Blood erythrocytes automated count (number/volume) 4.60 10*6/uL 4.35-5.85 Venous blood hemoglobin measurement (mass/volume) 13.4 g/dL 11.5-16.0 Blood hematocrit (volume fraction) 41 % 35-52 Automated erythrocyte mean corpuscular volume 88 [ foz_us] 80-99 Automated erythrocyte mean corpuscular h emoglobin (mass per erythrocyte) 29 pg 25-34 Automated erythrocyte mean corpuscular h emoglobin concentration measurement (mass/volume) 33 g/dL 32-36 Automated erythrocyte distribution width ratio 13. 1 % 10.0- 14.5 Automated blood platelet count (count/volume) 184 10*3/uL 130-400 Automated blood platelet mean volume measurement 10.1 [foz_us] 7.4-10.4 Automated blood neutrophils/100 leukocytes 42 % 42-75 Automated blood lymphocytes/100 leukocytes 45 % 12-44 Blood monocytes/100 leukocytes 10 % 0-12 Automated blood eosinophils/100 leukocytes 3 % 0-10 Automated blood basophils/100 leukocytes 0 % 0-10 Blood neutrophils automated count (number/volume) 3.3 10*3 1.8-7.8 Blood lymphocytes automated count (number/volume) 3.5 10*3 1.0-4.0 Blood monocytes automated count (number/volume) 0. 8 10*3 0.0-1.0 Automated eosinophil count 0.2 10*3/uL 0 .0-0.3 Automated blood basophil count (count/volume) 0.0 10*3/uL 0.0-0.1 Comprehensive metabolic panel - 05/27/19 21:57 Serum or plasma sodium measurement (moles/volume) 142 mmol/L 135-145 Serum or plasma potassium measurement (moles/volume) 4.1 mmol/L 3.6-5.0 Serum or plasma chloride measurement (moles/volume) 107 mmol/L 98-107 Carbon dioxide 27 mmol/L 21-32 Serum or plasma anion gap determination (moles/volume) 8 mmol/L 5-14 Serum or plasma urea nitrogen measurement (mass/volume ) 16 mg/dL 7-18 Serum or plasma creatinine measurement (mass/volume) 0.82 mg/dL 0.60-1.30 Serum or plasma urea nitrogen/creatinine mass ratio 20 NRG Serum or plasma creatinine measurement w ith calculation of estimated glomerular filtration rate > NRG Serum or plasma glucose measurement (mass/volume) 56 mg/dL 70-105 Serum or plasma calcium measurement (mass/volume) 9.6 mg/dL 8.5-10.1 Serum or plasma total bilirubin measurement (mass/volu me) 0.1 mg/dL 0.1-1.0 Serum or plasma alkaline phosphatase lois surement (enzymatic activity/volume) 53 U/L 40-136 Serum or plasma aspartate aminotransfera se measurement (enzymatic activity/volume) 14 U/L 5-34 Serum or plasma alanine aminotransferase measurement (enzymatic activity/volume) 10 U/L 0-55 Serum or plasma protein measurement (mass/volume) 6.7 g/dL 6.4-8.2 Serum or plasma albumin measurement (mass/volume) 4.2 g/dL 3.2-4.5 CALCIUM CORRECTED 9.4 mg/dL 8.5-10.1 Serum or plasma amylase measurement (enz ymatic activity/volume) - 05/27/19 21:57 Serum or plasma amylase measurement (enzymatic activit y/volume) 54 U/L 25-125 Lipase - 05/27/19 21:57 Lipase 27 U/L 8-78 Serum or plasma acetaminophen measuremen t (mass/volume) - 05/27/19 21:57 Serum or plasma acetaminophen measurement (mass/volume ) < ug/mL 10-30 Serum or plasma ethanol measurement (mas s/volume) - 05/27/19 21:57 Serum or plasma ethanol measurement (mass/volume) < mg/dL <10 Complete blood count (CBC) with automate d white blood cell (WBC) differential - 07/28/19 17:02 Blood leukocytes automated count (number/volume) 9.6 10*3/uL 4.3-11.0 Blood erythrocytes automated count (number/volume) 4.38 10*6/uL 4.35-5.85 Venous blood hemoglobin measurement (mass/volume) 12.9 g/dL 11.5-16.0 Blood hematocrit (volume fraction) 39 % 35-52 Automated erythrocyte mean corpuscular volume 89 [ foz_us] 80-99 Automated erythrocyte mean corpuscular h emoglobin (mass per erythrocyte) 30 pg 25-34 Automated erythrocyte mean corpuscular h emoglobin concentration measurement (mass/volume) 33 g/dL 32-36 Automated erythrocyte distribution width ratio 13. 9 % 10.0- 14.5 Automated blood platelet count (count/volume) 236 10*3/uL 130-400 Automated blood platelet mean volume measurement 9.2 [foz_us] 7.4-10.4 Automated blood neutrophils/100 leukocytes 51 % 42-75 Automated blood lymphocytes/100 leukocytes 38 % 12-44 Blood monocytes/100 leukocytes 10 % 0-12 Automated blood eosinophils/100 leukocytes 2 % 0-10 Automated blood basophils/100 leukocytes 0 % 0-10 Blood neutrophils automated count (number/volume) 4.9 10*3 1.8-7.8 Blood lymphocytes automated count (number/volume) 3.6 10*3 1.0-4.0 Blood monocytes automated count (number/volume) 1. 0 10*3 0.0-1.0 Automated eosinophil count 0.2 10*3/uL 0 .0-0.3 Automated blood basophil count (count/volume) 0.0 10*3/uL 0.0-0.1 Complete urinalysis with reflex to cultu re - 07/28/19 17:02 Urine color determination YELLOW NRG Urine clarity determination SLIGHTLY CLOUDY NRG Urine pH measurement by test strip 7 5-9 Specific gravity of urine by test strip 1.010 1.016-1.022 Urine protein assay by test strip, semi-quantitative NEGATIVE NEGATIVE Urine glucose detection by automated test strip NE GATIVE NEGATIVE Erythrocytes detection in urine sediment by light micr oscopy NEGATIVE NEGATIVE Urine ketones detection by automated test strip NE GATIVE NEGATIVE Urine nitrite detection by test strip NEGATIVE NEGATIVE Urine total bilirubin detection by test strip NEGA TIVE NEGATIVE Urine urobilinogen measurement by automated test strip (mass/volume) NORMAL NORMAL Urine leukocyte esterase detection by dipstick NEG ATIVE NEGATIVE Automated urine sediment erythrocyte cou nt by microscopy (number/high power field) NONE NRG Automated urine sediment leukocyte count by microscopy (number/high power field) NONE NRG Bacteria detection in urine sediment by light microsco py TRACE NRG Squamous epithelial cells detection in u rine sediment by light microscopy 5-10 NRG Crystals detection in urine sediment by light microsco py PRESENT NRG Casts detection in urine sediment by light microscopy NONE NRG Mucus detection in urine sediment by light microscopy SMALL NRG Complete urinalysis with reflex to culture NO NRG Amorphous sediment detection in urine sediment by ligh t microscopy MOD CATERINA PHOSPHATE NRG PT panel in platelet poor plasma by coag ulation assay - 07/28/19 17:02 Prothrombin time (PT) in platelet poor plasma by coagu lation assay 12.4 s 12.2-14.7 INR in platelet poor plasma or blood by coagulation as say 0.9 0.8-1.4 Activated partial thromboplastin time (a PTT) in platelet poor plasma bycoagulation assay - 07/28/19 17:02 Activated partial thromboplastin time (a PTT) in platelet poor plasma bycoagulation assay 28 s 24-35 Urine drug screening test - 07/28/19 17: 02 Urine phencyclidine detection by screening method NEGATIVE NEGATIVE Urine benzodiazepines detection by screening method POSITIVE NEGATIVE Urine cocaine detection NEGATIVE NEGATI VE Urine amphetamines detection by screening method N EGATIVE NEGATIVE Urine methamphetamine detection by screening method NEGATIVE NEGATIVE Urine cannabinoids detection by screening method N EGATIVE NEGATIVE Urine opiates detection by screening method NEGATI VE NEGATIVE Urine barbiturates detection NEGATIVE N EGATIVE Screening urine tricyclic antidepressants detection NEGATIVE NEGATIVE Urine methadone detection by screening method NEGA TIVE NEGATIVE Urine oxycodone detection NEGATIVE NEGA TIVE Urine propoxyphene detection NEGATIVE N EGATIVE Serum or plasma choriogonadotropin (preg peterson test) detection - 07/28/19 17:02 Serum or plasma choriogonadotropin ( test) de tection NEGATIVE NEGATIVE Comprehensive metabolic panel - 07/28/19 17:02 Serum or plasma sodium measurement (moles/volume) 139 mmol/L 135-145 Serum or plasma potassium measurement (moles/volume) 3.9 mmol/L 3.6-5.0 Serum or plasma chloride measurement (moles/volume) 105 mmol/L 98-107 Carbon dioxide 26 mmol/L 21-32 Serum or plasma anion gap determination (moles/volume) 8 mmol/L 5-14 Serum or plasma urea nitrogen measurement (mass/volume ) 15 mg/dL 7-18 Serum or plasma creatinine measurement (mass/volume) 0.80 mg/dL 0.60-1.30 Serum or plasma urea nitrogen/creatinine mass ratio 19 NRG Serum or plasma creatinine measurement w ith calculation of estimated glomerular filtration rate > NRG Serum or plasma glucose measurement (mass/volume) 85 mg/dL 70-105 Serum or plasma calcium measurement (mass/volume) 9.0 mg/dL 8.5-10.1 Serum or plasma total bilirubin measurement (mass/volu me) 0.2 mg/dL 0.1-1.0 Serum or plasma alkaline phosphatase lois surement (enzymatic activity/volume) 56 U/L 40-136 Serum or plasma aspartate aminotransfera se measurement (enzymatic activity/volume) 16 U/L 5-34 Serum or plasma alanine aminotransferase measurement (enzymatic activity/volume) 16 U/L 0-55 Serum or plasma protein measurement (mass/volume) 6.6 g/dL 6.4-8.2 Serum or plasma albumin measurement (mass/volume) 4.1 g/dL 3.2-4.5 CALCIUM CORRECTED 8.9 mg/dL 8.5-10.1 Magnesium - 07/28/19 17:02 Magnesium 2.0 mg/dL 1.6-2.4 Serum or plasma lithium measurement (mol es/volume) - 07/28/19 17:02 BNP PT 22.2 pg/mL <100.0 Complete blood count (CBC) with automate d white blood cell (WBC) differential - 10/30/19 21:55 Blood leukocytes automated count (number/volume) 11.6 10*3/uL 4.3-11.0 Blood erythrocytes automated count (number/volume) 4.68 10*6/uL 4.35-5.85 Venous blood hemoglobin measurement (mass/volume) 13.9 g/dL 11.5-16.0 Blood hematocrit (volume fraction) 42 % 35-52 Automated erythrocyte mean corpuscular volume 89 [ foz_us] 80-99 Automated erythrocyte mean corpuscular h emoglobin (mass per erythrocyte) 30 pg 25-34 Automated erythrocyte mean corpuscular h emoglobin concentration measurement (mass/volume) 33 g/dL 32-36 Automated erythrocyte distribution width ratio 12. 5 % 10.0- 14.5 Automated blood platelet count (count/volume) 266 10*3/uL 130-400 Automated blood platelet mean volume measurement 10.2 [foz_us] 7.4-10.4 Automated blood neutrophils/100 leukocytes 42 % 42-75 Automated blood lymphocytes/100 leukocytes 46 % 12-44 Blood monocytes/100 leukocytes 11 % 0-12 Automated blood eosinophils/100 leukocytes 2 % 0-10 Automated blood basophils/100 leukocytes 0 % 0-10 Blood neutrophils automated count (number/volume) 4.9 10*3 1.8-7.8 Blood lymphocytes automated count (number/volume) 5.3 10*3 1.0-4.0 Blood monocytes automated count (number/volume) 1. 2 10*3 0.0-1.0 Automated eosinophil count 0.2 10*3/uL 0 .0-0.3 Automated blood basophil count (count/volume) 0.0 10*3/uL 0.0-0.1 Comprehensive metabolic panel - 10/30/19 21:55 Serum or plasma sodium measurement (moles/volume) 140 mmol/L 135-145 Serum or plasma potassium measurement (moles/volume) 3.5 mmol/L 3.6-5.0 Serum or plasma chloride measurement (moles/volume) 106 mmol/L 98-107 Carbon dioxide 11 mmol/L 21-32 Serum or plasma anion gap determination (moles/volume) 23 mmol/L 5-14 Serum or plasma urea nitrogen measurement (mass/volume ) 13 mg/dL 7-18 Serum or plasma creatinine measurement (mass/volume) 0.85 mg/dL 0.60-1.30 Serum or plasma urea nitrogen/creatinine mass ratio 15 NRG Serum or plasma creatinine measurement w ith calculation of estimated glomerular filtration rate > NRG Serum or plasma glucose measurement (mass/volume) 115 mg/dL 70-105 Serum or plasma calcium measurement (mass/volume) 9.4 mg/dL 8.5-10.1 Serum or plasma total bilirubin measurement (mass/volu me) 0.3 mg/dL 0.1-1.0 Serum or plasma alkaline phosphatase lois surement (enzymatic activity/volume) 59 U/L 40-136 Serum or plasma aspartate aminotransfera se measurement (enzymatic activity/volume) 15 U/L 5-34 Serum or plasma alanine aminotransferase measurement (enzymatic activity/volume) 14 U/L 0-55 Serum or plasma protein measurement (mass/volume) 7.5 g/dL 6.4-8.2 Serum or plasma albumin measurement (mass/volume) 4.7 g/dL 3.2-4.5 Magnesium - 10/30/19 21:55 Magnesium 2.2 mg/dL 1.6-2.4 Serum or plasma creatine kinase measurem ent (enzymatic activity/volume) - 10/30/19 21:55 Serum or plasma creatine kinase measurem ent (enzymatic activity/volume) 168 U/L 29-168 Serum or plasma creatine kinase MB measu rement (enzymatic activity/volume) - 10/30/19 21:55 Serum or plasma creatine kinase MB measu rement (enzymatic activity/volume) 1.2 ng/mL <6.6 Myoglobin, serum - 10/30/19 21:55 Myoglobin, serum 117.5 ng/mL 10.0-92.0 Serum or plasma thyrotropin measurement by detection limit <=0.05 miu/l (units/volume) - 10/30/19 21:55 Serum or plasma thyrotropin measurement by detection limit <=0.05 miu/l (units/volume) 3.30 u[iU]/mL 0.35-4.94 Serum or plasma acetaminophen measuremen t (mass/volume) - 10/30/19 21:55 Serum or plasma acetaminophen measurement (mass/volume ) < ug/mL 10-30 Serum or plasma ethanol measurement (mas s/volume) - 10/30/19 21:55 Serum or plasma ethanol measurement (mass/volume) < mg/dL <10 Serum heterophile antibody titer - 10/30 21:55 Serum heterophile antibody titer NEGATIVE NEGATIVE PT panel in platelet poor plasma by coag ulation assay - 10/30/19 22:12 Prothrombin time (PT) in platelet poor plasma by coagu lation assay 14.1 s 12.2-14.7 INR in platelet poor plasma or blood by coagulation as say 1.1 0.8-1.4 Activated partial thromboplastin time (a PTT) in platelet poor plasma bycoagulation assay - 10/30/19 22:12 Activated partial thromboplastin time (a PTT) in platelet poor plasma bycoagulation assay 20 s 24-35 Complete urinalysis with reflex to cultu re - 10/30/19 22:25 Urine color determination YELLOW NRG Urine clarity determination CLOUDY NR G Urine pH measurement by test strip 7.5 5-9 Specific gravity of urine by test strip 1.020 1.016-1.022 Urine protein assay by test strip, semi-quantitative 1+ NEGATIVE Urine glucose detection by automated test strip NE GATIVE NEGATIVE Erythrocytes detection in urine sediment by light micr oscopy 1+ NEGATIVE Urine ketones detection by automated test strip NE GATIVE NEGATIVE Urine nitrite detection by test strip NEGATIVE NEGATIVE Urine total bilirubin detection by test strip NEGA TIVE NEGATIVE Urine urobilinogen measurement by automated test strip (mass/volume) 0.2 mg/dL < = 1.0 Urine leukocyte esterase detection by dipstick NEG ATIVE NEGATIVE Automated urine sediment erythrocyte cou nt by microscopy (number/high power field) [HPF] NRG Automated urine sediment leukocyte count by microscopy (number/high power field) NONE NRG Bacteria detection in urine sediment by light microsco py NEGATIVE NRG Crystals detection in urine sediment by light microsco py PRESENT NRG Casts detection in urine sediment by light microscopy NONE NRG Mucus detection in urine sediment by light microscopy NEGATIVE NRG Complete urinalysis with reflex to culture NO NRG Amorphous sediment detection in urine sediment by ligh t microscopy LARGE CATERINA PHOSPHATE NRG Urine drug screening test - 10/30/19 22: 25 Urine phencyclidine detection by screening method M NEGATIVE Urine benzodiazepines detection by screening method POSITIVE NEGATIVE Urine cocaine detection NEGATIVE NEGATI VE Urine amphetamines detection by screening method N EGATIVE NEGATIVE Urine methamphetamine detection by screening method NEGATIVE NEGATIVE Urine cannabinoids detection by screening method N EGATIVE NEGATIVE Urine opiates detection by screening method NEGATI VE NEGATIVE Urine barbiturates detection NEGATIVE N EGATIVE Screening urine tricyclic antidepressants detection NEGATIVE NEGATIVE Urine methadone detection by screening method NEGA TIVE NEGATIVE Urine oxycodone detection NEGATIVE NEGA TIVE Urine propoxyphene detection NEGATIVE N EGATIVE Encounters ACCT No. Visit Date/Time Discharge Status Pt. Type Provider Facility Loc./Unit Complaint [id number] 02/27/2015 09:25:00 02/27/2015 23:59: 59 [facility] Outpatient GODWIN SEVILLA APRN [id number] 01/23/2015 11:47:00 01/23/2015 23:59: 59 [facility] Outpatient GODWIN SEVILLA APRN [id number] 12/18/2014 16:07:00 12/18/2014 23:59: 59 C[facility] Outpatient NICOLA MANUEL DO [id number] 12/18/2014 10:25:00 12/18/2014 23:59: 59 CLS Outpatient ROEL PLUMBING INSPECTORGODWIN [id number] 12/16/2014 10:01:00 12/16/2014 23:59: 59 CLS Outpatient ANGELA LSCS, DEMOND R [id number] 11/26/2014 14:03:00 11/26/2014 23:59: 59 CLS Outpatient ANGELA LSCS, DEMOND Fernando [id number] 11/21/2014 08:26:00 11/21/2014 23:59: 59 CLS Outpatient SILVERIO DDSJOSE [id number] 11/10/2014 09:24:00 11/10/2014 23:59: 59 CLS Outpatient MADL PLUMBING INSPECTOR FLO L [id number] 10/31/2014 11:08:00 10/31/2014 23:59: 59 CLS Outpatient ANGELA LSCS, DEMOND Fernando [id number] 10/29/2014 16:35:00 10/29/2014 23:59: 59 CLS Outpatient SONNY PLUMBING INSPECTORELIAS Kirkpatrick [id number] 10/17/2014 11:27:00 10/17/2014 23:59: 59 CLS Outpatient ROEL PLUMBING INSPECTORGODWIN [id number] 09/16/2014 09:30:00 09/16/2014 23:59: 59 CLS Outpatient MADL PLUMBING INSPECTORNARAYANFLO L [id number] 09/16/2014 09:30:00 09/16/2014 23:59: 59 CLS Outpatient MADL PLUMBING INSPECTOR FLO L [id number] 08/01/2014 13:23:00 08/01/2014 23:59: 59 CLS Outpatient OREL PLUMBING INSPECTORGODWIN [id number] 08/01/2014 13:23:00 08/01/2014 23:59: 59 CLS Outpatient ROEL PLUMBING INSPECTORGODWIN Kirkpatrick [id number] 07/04/2014 08:35:00 07/04/2014 23:59: 59 CLS Outpatient MADL PLUMBING INSPECTOR FLO L [id number] 06/10/2014 09:22:00 06/10/2014 23:59: 59 CLS Outpatient ROEL GODWIN MENG [id number] 05/27/2014 08:53:00 05/27/2014 23:59: 59 CLS Outpatient FLO GONZALEZ APRN [id number] 05/08/2014 11:48:00 05/08/2014 23:59: 59 CLS Outpatient GODWIN SEVILLA APRN [id number] 04/10/2014 09:33:00 04/10/2014 23:59: 59 CLS Outpatient WOLF JAMA MD [id number] 03/11/2014 13:00:00 03/11/2014 23:59: 59 CLS Outpatient JASON HUNTER APRN [id number] 03/11/2014 13:00:00 03/11/2014 23:59: 59 CLS Outpatient JASON HUNTER APRN [id number] 12/10/2013 10:52:00 12/10/2013 23:59: 59 CLS Outpatient JASON HUNTER APRN [id number] 10/18/2013 09:59:00 10/18/2013 23:59: 59 CLS Outpatient KELY FRIEDMAN DDS [id number] 09/16/2013 12:50:00 09/16/2013 23:59: 59 CLS Outpatient NICOLA MANUEL DO [id number] 09/11/2013 16:55:00 09/11/2013 23:59: 59 CLS Outpatient WOLF JAMA MD [id number] 08/15/2013 12:35:00 08/15/2013 23:59: 59 CLS Outpatient JASON HUNTER APRN [id number] 08/01/2013 09:18:00 08/01/2013 23:59: 59 CLS Outpatient NICOLA MANUEL DO [id number] 02/13/2013 13:59:00 02/13/2013 23:59: 59 CLS Outpatient [id number] 01/24/2013 15:27:00 01/24/2013 23:59: 59 CLS Outpatient JASON SOLANO DO [id number] 01/16/2013 10:21:00 01/16/2013 23:59: 59 CLS Outpatient NICOLA MANUEL DO [id number] 11/29/2012 15:05:00 11/29/2012 23:59: 59 CLS Outpatient [id number] 09/28/2012 08:28:00 09/28/2012 23:59: 59 [place] [id number] 09/03/2012 15:05:00 09/03/2012 23:59:5 9 CLS Outpatient EVITA JONES, WOLF [id number] 06/22/2013 09:12:00 Document Registration [id number] 05/15/2013 10:52:00 Document Registration [id number] 05/09/2013 15:22:00 Document Registration [id number] 04/29/2013 08:59:00 Document Registration [id number] 04/26/2013 14:51:00 Document Registration [id number] 04/19/2013 10:48:00 Document Registration [id number] 04/02/2013 13:34:00 Document Registration [id number] 03/26/2013 13:02:00 Document Registration [id number] 03/23/2013 09:54:00 Document Registration [id number] 02/22/2013 12:11:00 Document Registration [id number] 01/14/2020 14:01:00 14:39:00 DIS Outpatient 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 [facility] ER BACK PAIN [id number] 01/13/2020 11:32:00 23:59:59 CLS Outpatient STEPHANIE JIMENEZ [employer] INSPECTOR [facility] RAD HEADACHE [id number] 11/16/2019 15:04:00 17:03:00 DIS Emergency ERIKA UNGER MD [facility] ER HEADACHE [id number] 10/30/2019 21:52:00 01:07:00 DIS Outpatient MIRANDA LOCO DO [facility] ER SEIZURE [id number] 07/28/2019 16:19:00 18:00:00 DIS Emergency MIRANDA LOCO DO [facility] ER RETAINING FLUID [id number] 07/26/2019 18:34:00 19:07:00 DIS Emergency 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 [facility] ER JAW PAIN [id number] 07/25/2019 19:29:00 19:50:00 DIS Emergency 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 [facility] ER DENTAL PAIN [id number] 07/23/2019 14:45:00 23:59:59 CLS Outpatient DAKSHA ROJAS DO S [facility] RAD CHRONIC PELVIC PAIN [id number] 06/25/2019 15:23:00 23:59:59 CLS Outpatient STEPHANIE JIMENEZ APRN [facility] RAD RADICULOPATHY, LUMBAR REGION [id number] 06/22/2019 09:24:00 12:35:00 DIS Emergency SUNITA BERNAL [facility] ER BACK PAIN [id number] 05/29/2019 14:15:00 23:59:59 CLS Outpatient STEPHANIE JIMENEZ PLUMBING INSPECTOR [facility] RAD BACK PAIN [id number] 05/27/2019 20:35:00 22:59:00 DIS Emergency MIRANDA LOCO DO a [facility] ER ABD PAIN [id number] 03/04/2019 15:21:00 16:58:00 DIS Emergency ERIKA UNGER MD [facility] ER LOWER BACK/PELVIS PAIN [id number] 02/28/2019 08:05:00 23:59:59 CLS Outpatient DARY REDMAN MD [facility] RAD LLQ PAIN,NAUSEA [id number] 02/18/2019 07:31:00 23:59:59 CLS Outpatient DARY REDMAN MD [facility] RAD LLQ PAIN, NAUSEA [id number] 08/05/2018 20:11:00 23:00:00 DIS Emergency 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 [facility] ER ABD PAIN [id number] 07/11/2018 12:50:00 23:59:59 CLS Outpatient DAVID SANDERS MD [facility] CARD ANTERIOR CHEST WALL ELLEN N,HEART PALPITATIONS [id number] 07/02/2018 07:47:00 23:59:59 CLS Outpatient DAVID SANDERS MD [facility] CARD ANTERIOR CHEST WALL ELLEN N,HEART PALPITATIONS [id number] 05/04/2018 08:44:00 018 09:11:00 DIS Outpatient JENNIFER MAYES MD [facility] REHAB PELVIC FLOOR WE AKNESS [id number] 04/27/2018 18:44:00 018 19:17:00 DIS Emergency ISMAEL SOL APRN [facility] ER JAW AND BACK PAIN [id number] 02/02/2018 08:37:00 018 23:59:59 CLS Preadmit DAKSHA JOHNS DO Via [facility] RAD M54.16 RADICULOPATHY [id number] 01/09/2018 00:07:00 018 01:21:00 DIS Emergency MIRANDA LOCO DO Vi [facility] ER SEVERE BACK PAIN GOES D OWN INTO LEGS HIPS [id number] 12/21/2017 01:43:00 018 02:17:00 DIS Emergency DONNELL JONES, CALVIN Kiser [facility] ER POST OP ABD BRANDIN HAZEL BLEEDING THRU,VERY PAINFULL [id number] 12/20/2017 10:50:00 018 16:50:00 DIS Outpatient JENNIFER MAYES MD [facility] SDC ENDOMETRIOSIS,C HRONIC PELVIC PAIN [id number] 11/30/2017 10:02:00 018 10:40:00 DIS Outpatient JENNIFER MAYES MD [facility] PREOP ENDOMETRIOSIS, CHRONIC PELVIC PAIN [id number] 04/05/2017 09:36:00 017 23:59:59 CLS Outpatient FLO GONZALEZ [facility] RAD R10.2 PELVIC PAIN [id number] 02/03/2017 09:42:00 017 23:59:59 CLS Preadmit JENNIFER MAYES MD [facility] REHAB LBP TWO MONTHS ; S/P HYSTERECTOMY [id number] 02/02/2017 12:09:00 017 12:47:00 DIS Emergency ARMANDO JONES, JESSIE Workman [facility] ER DENTAL/JAW PAIN [id number] 01/09/2017 10:50:00 017 09:45:00 DIS Outpatient JENNIFER MAYES MD [facility] SDC CPP;DUB;ENDOMET RIOSIS [id number] 01/04/2017 12:09:00 017 12:30:00 DIS Outpatient JENNIFER MAYES MD [facility] PREOP CPP;DUB;ENDOMET RIOSIS [id number] 12/16/2016 00:59:00 017 02:52:00 DIS Emergency DONNELL JONES, CALVIN Kiser [facility] ER NAUSEA,FEVER,MENDEZ D BABY ON 11-29-16 [id number] 12/02/2016 10:48:00 017 14:00:00 DIS Emergency SUNITA BERNAL [facility] ER PALPITATIONS/BLURRY CHUCK [id number] 11/29/2016 17:45:00 017 13:30:00 DIS Inpatient JENNIFER MAYES MD [facility] LDRP LABOR [id number] 11/26/2016 13:04:00 017 15:11:00 DIS Outpatient JENNIFER MAYES MD [facility] WSo RIB PAIN/LOWER BACK PAIN [id number] 11/08/2016 18:28:00 016 21:23:00 DIS Outpatient JENNIFER MAYES MD [facility] WSo LOWER BACK PAIN /RIB PAIN/ABD PAIN/GROIN PAIN [id number] 10/05/2016 12:03:00 016 23:59:59 CLS Outpatient JENNIFER MAYES MD [facility] WSo RH NEGATIVE IN [id number] 09/14/2016 12:52:00 016 13:45:00 DIS Outpatient GERBER JONES, JENNIFER [place] Via [facility] WSo LOOSING MUCUS P LUG 26 WKS PREG [id number] 07/22/2016 16:02:00 016 19:50:00 DIS Emergency SUNITA BERNAL [facility] ER FEVER/CANNOT URINATE [id number] 06/29/2016 14:38:00 18:17:00 DIS Emergency REZA CORONADO MD [facility] ER VAG BLEEDING 15 WKS PREG [id number] 03/23/2016 21:42:00 01:40:00 DIS Emergency MIRANDA LOCO DO [facility] ER CONFUSED,DROWSY [id number] 01/02/2016 01:08:00 01:43:00 DIS Emergency CLAUDY MIRANDA BLANTON [facility] ER RT SIDE OF FACE PAINFUL ,DENTAL PAIN [id number] 11/04/2015 14:43:00 23:59:59 CLS Outpatient FELICIA RESTREPO APRN [facility] RAD HISTORY OF ENDO METRIOSIS [id number] 10/10/2015 16:42:00 18:09:00 DIS Emergency 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 [facility] ER HIP/BACK PAIN - POSSIBL Y [id number] 08/31/2015 17:50:00 19:59:00 DIS Emergency 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 [facility] ER SEIZURE [id number] 08/26/2015 03:31:00 05:08:00 DIS Emergency MIRANDA LOCO DO [facility] ER RT SIDE ABD PAIN [id number] 05/18/2015 11:11:00 12:42:00 DIS Emergency 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 [facility] ER ABD/LOWER BACK PAIN UTI SYMPTOMS [id number] 02/26/2015 09:00:00 23:59:59 CLS Preadmit FLO GONZALEZ THEORETICAL PHYSICIST [facility] CARD PALPITATIONS [id number] 11/27/2014 08:42:00 00:01:00 DIS Outpatient FLO GONZALEZP [facility] CARD PALPITATIONS [id number] 12/09/2014 13:03:00 14:48:00 DIS Emergency ISMAEL SOL APRN [facility] ER IRR HEART RATE [id number] 11/28/2014 21:04:00 21:30:00 DIS Emergency ISMAEL SOL APRN [facility] ER TOOTH ACHE [id number] 09/18/2014 10:34:00 11:11:00 DIS Outpatient JOSE FRIEDMAN MD [facility] REHAB LUMBAGO AND CERVICALGIA [id number] 09/19/2014 17:05:00 014 18:13:00 DIS Emergency SUNITA BERNAL [facility] ER L SIDE FACIAL/DENTAL P AIN [id number] 08/11/2014 14:55:00 23:59:59 CLS Outpatient FLO GONZALEZP [facility] RAD LBP [id number] 08/04/2014 15:27:00 014 17:54:00 DIS Emergency ISMAEL SOL APRN [facility] ER FALL [id number] 06/05/2014 15:36:00 014 16:31:00 DIS Emergency REZA CORONADO MD [facility] ER CHEST CONGESTIO N, COUGH [id number] 05/01/2014 01:24:00 014 03:36:00 DIS Emergency MIGDALIA RAMON DO [facility] ER BACK PAIN [id number] 04/24/2014 08:45:00 23:59:59 CLS Outpatient GERBERJENNIFER TINAJERO MD [facility] RAD RUQ PAIN,GOITER [id number] 03/22/2014 13:08:00 014 11:55:00 DIS Inpatient JENINFER MAYES MD [facility] WS LABOR [id number] 03/20/2014 21:50:00 014 09:00:00 DIS Inpatient JENNIFER MAYES MD [facility] WS RIB PAIN [id number] 03/14/2014 00:56:00 014 01:44:00 DIS Outpatient [facility] [id number] 02/11/2014 21:51:00 014 22:50:00 DIS Outpatient JENNIFER MAYES MD [facility] C/O CRAMPING [id number] 11/13/2013 15:06:00 014 18:10:00 DIS Outpatient JENNIFER MAYES MD [facility] WATERY DISCHARG E SINCE 1400 [id number] 05/20/2013 08:48:00 013 23:59:59 CLS Outpatient WOLF JAMA MD [facility] RAD LOW BACK PAIN,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,BLADDER DISFUNCT [id number] 04/30/2013 14:31:00 013 16:18:00 DIS Emergency MEJIA JONES, YAW Fernando [facility] ER LOW BACK/RT HIP PAIN AB SCESS RIGHT THIGH [id number] 04/20/2013 11:49:00 013 13:40:00 DIS Emergency JESSIE ROBERTS MD [facility] ER RAPID HEART BEAT, SOA [id number] 05/18/2015 11:12:00 Document Registration [id number] 05/18/2015 11:12:00 Document Registration [id number] 01/21/2015 00:32:00 Document Registration [id number] 09/25/2014 14:23:00 Document Registration [id number] 12/11/2012 16:00:00 Document Registration [id number] 12/08/2012 15:53:00 Document Registration [id number] 01/26/2012 09:17:00 Document Registration [id number] 01/18/2012 18:33:00 Document Registration [id number] 09/12/2011 15:20:00 Document Registration [id number] 06/27/2011 15:54:00 Document Registration [id number] 05/26/2010 22:10:00 Document Registration [id number] 05/06/2010 09:15:00 Document Registration [id number] 01/07/2020 13:45:00 01/07/2020 23:59:5 9 [facility] Outpatient LEAH PACE [facility] [id number] 03/11/2019 09:40:00 Document Registration [id number] 05/25/2018 11:20:00 Document Registration [id number] 05/17/2018 10:00:00 Document Registration [id number] 03/30/2018 13:05:00 Document Registration [id number] 02/21/2018 10:00:00 Document Registration
[2020-02-01 19:43] LABS: ALANINE AMINOTRANSFERASE 14 U/L (0-55); ALBUMIN 4.4 GM/DL (3.2-4.5); ALKALINE PHOSPHATASE 52 U/L (40-136); BILIRUBIN,TOTAL 0.2 MG/DL (0.1-1.0); BUN/CREATININE RATIO 15; CALCIUM 9.2 MG/DL (8.5-10.1); CARBON DIOXIDE 24 MMOL/L (21-32); CHLORIDE 105 MMOL/L (98-107); CREATININE SERUM 0.74 MG/DL (0.60-1.30); GFR ESTIMATED > 60; GLUCOSE 93 MG/DL (70-105); POTASSIUM 3.7 MMOL/L (3.6-5.0); SODIUM 139 MMOL/L (135-145); TOTAL PROTEIN 7.1 GM/DL (6.4-8.2)
[2020-02-01] MEDS ORDERED: PRD20T PO (20:08)
[2020-02-01 20:16] VITALS: BP 120/80
--- NOTE | 2020-02-01 20:40 | Diagnostic Imaging Report ---
EXAMINATION: PA and lateral chest INDICATION: Shortness of breath and dizziness. Comparison made to prior study from 10/30/2019. FINDINGS: Lungs demonstrate no focal pulmonary infiltrate or consolidation. There is no effusion. There is no pneumothorax. Heart size and mediastinal contours appear appropriate and pulmonary vascularity appears normal. There is no acute or suspicious osseous abnormality. IMPRESSION: 1. No radiographic evidence of an acute cardiopulmonary process. Dictated by: Dictated on workstation # [id number]
== END 2020-02-01 20:18 | disposition home or self-care (01) ==
LOC: EDUNIT# 19:01 → ER 19:05
DX: R06.09 Other forms of dyspnea (principal); M54.9 Dorsalgia, unspecified; G89.29 Other chronic pain
CPT/HCPCS: 36415; 71046; 80053; 84703; 85025; 85379

== ENCOUNTER 2020-02-10 17:53 | Emergency (ER) | payer OTHER ==
[~2020-02-10] VITALS: Ht 170 cm; Wt 68.0 kg
--- OUTSIDE RECORDS SUMMARY | 2020-02-10 18:01 | XMS REPORT ---
Author Author Sonia Singh Doctor Organization [facility] Address Unknown Phone Unavailable Care Team Providers Care Photo Retoucher Name Role Phone Migration, Doctor Unavailable Unavailable PROBLEMS Type Condition ICD9-CM Code [id number] Code Onset Dates Condition S tatus SNOMED Code Problem Generalized anxiety disorder F41.1 A ctive 08298271 Problem Bipolar disorder, current episode mixed, moderate F31.62 Active 612844771 Problem Post traumatic stress disorder F43.10 Active 30699819 Problem Constipation K59.00 Active 2806846 8 Problem Other chronic pain G89.29 Active 8 1936756 Problem Borderline personality disorder F60.3 Active 77546289 Problem Endometriosis N80.9 Active 586646 003 Problem Acute right-sided low back pain with right-sided sciatica M54.41 Active 783256814 Problem Acute non intractable tension-type headache G44.20 9 Active [id number] ALLERGIES No Information ENCOUNTERS Encounter Location Date Diagnosis [facility] [address] [address] Dec, Periumbilical abdominal pain R10.33 and Dehydration E86.0 [facility] [address] [address] Dec, Influenza B J10.1 [facility] [address] [address] Oct, Facial pain R51 and Concussi on with loss of consciousness, subsequent encounter S06.0X9D [facility] [address] [address] Oct, Non-recurrent acute suppurat dmitry otitis media of both ears without spontaneous rupture of tympanic membranes H66.003 [facility] [address] [address] Sep, Viral upper respiratory illn ess J06.9 and Fever R50.9 [facility] [address] [place] [id number] [place] [address] Jul, Tongue lesion K14.8 [facility] [address] [place] [id number] [place] [address] May, Low back pain M54.5 ; Other chronic pain G89.29 ; Lower abdominal pain R10.30 and Otalgia of right ear H92.01 [place] [address] [address] Apr, Bipolar disorder, current episode mixed, moderate F31.62 [place] [address] [address] Apr, Bipolar disorder, current episode mixed, moderate F31.62 ; Post traumatic stress disorder F43.10 and Borderline personality disorder F60.3 [place] [address] [address] March, Bipolar disorder, current episode mixed, moderate F31.62 [place] [address] [address] March, Bipolar disorder, current episode mixed, moderate F31.62 [facility] [place] [address] [place] [id number] [place] [address] March, Bronchitis J40 [place] [address] [address] Feb, Bipolar disorder, current episode mixed, moderate F31.62 ; Post traumatic stress disorder F43.10 ; Borderline personality disorder F60.3 and 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 oil 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 (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 Z79.899 [place] [address] [address] Feb, Pelvic floor dysfunction M62.89 [place] [address] [address] Feb, Bipolar disorder, current episode mixed, moderate F31.62 [facility] [address] [address] Jan, Dehydration E86.0 and Back m uscle spasm M62.830 [place] [address] [address] Jan, Bipolar disorder, current episode mixed, moderate F31.62 ; Post traumatic stress disorder F43.10 ; Borderline personality disorder F60.3 and Other oil 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 (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 Z79.899 [facility] [address] [address] Jan, Cough R05 and Viral upper re spiratory tract infection J06.9 [place] [address] [address] Jan, Bipolar disorder, current episode mixed, moderate F31.62 [place] [address] [address] Dec, Bipolar disorder, current episode mixed, moderate F31.62 [place] [address] [address] Nov, Bipolar disorder, current episode mixed, moderate F31.62 [facility] [address] [address] Oct, Sore throat J02.9 [facility] [place] [address] [address] Oct, Abdominal pain R10.9 ; Low b ack pain M54.5 ; Left shoulder pain M25.512 and Constipation K59.00 [place] [address] [address] Oct, Bipolar disorder, current episode mixed, moderate F31.62 ; Post traumatic stress disorder F43.10 and Borderline personality disorder F60.3 [place] [address] [address] Sep, Bipolar disorder, current episode mixed, moderate F31.62 [place] [address] [place] [id number] Aug, Bipolar disorder, current episode mixed, moderate F31.62 [facility] [address] [place] [address] Jul, Thrombophlebitis I80.9 and Pelvic pain R 10.2 [facility] [address] [address] 05 Jul, 2018 Bipolar disorder, current episode mixed, moderate F31.62 ; Post traumatic stress disorder F43.10 and Borderline personality disorder F60.3 [place] [address] [address] Jun, Bipolar disorder, current episode mixed, moderate F31.62 [place] [address] [address] May, Palpitations R00.2 [place] [address] [address] May, Palpitations R00.2 [place] [address] [address] May, Palpitations R00.2 and Frequent bowel mo vements R19.4 [place] [address] [address] May, Bipolar disorder, current episode mixed, moderate F31.62 ; Post traumatic stress disorder F43.10 and Borderline personality disorder F60.3 [facility] [address] [facility] [place] [id number] 15 Apr, 2018 Dental examination Z01.20 [facility] [address] [place] [id number] [place] [address] 15 Apr, 2018 [facility] [address] [address] Apr, Dental examination Z01.20 [facility] [address] [facility] [id number] [address] [place] [address] Apr, Tooth pain K08.89 [place] [address] [address] Apr, Bipolar disorder, current episode mixed, moderate F31.62 ; Post traumatic stress disorder F43.10 and Borderline personality disorder F60.3 [facility] [address] [place] [id number] [place] [address] March, Abdominal pain R10.9 ; UTI s ymptoms R39.9 and Other microscopic hematuria R31.29 [place] [address] [address] March, [place] [address] [address] March, Bipolar disorder, current episode mixed, moderate F31.62 ; Post traumatic stress disorder F43.10 and Borderline personality disorder F60.3 [place] [address] [address] Feb, Encounter for immunization Z23 [place] [address] [address] Feb, Bipolar disorder, current episode mixed, moderate F31.62 ; Post traumatic stress disorder F43.10 and Borderline personality disorder F60.3 [place] [address] [address] Feb, Bipolar disorder, current episode mixed, moderate F31.62 ; Post traumatic stress disorder F43.10 ; Borderline personality disorder F60.3 and Other fdc (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 Z79.899 [place] [address] [address] Jan, Encounter for immunization Z23 [place] [address] [address] Jan, [place] [address] [address] Jan, Bipolar disorder, current episode mixed, moderate F31.62 [facility] [address] [place] [id number] [place] [address] Jan, Lumbar back pain M54.5 [place] [address] [address] 28 Dec, 2017 Low back pain M54.5 [place] [address] [address] 13 Dec, 2017 Bipolar disorder, current episode mixed, moderate F31.62 [place] [address] [address] Dec, Generalized anxiety disorder F41.1 and B ipolar disorder, current episode mixed, moderate F31.62 [facility] [place] [address] [place] [address] Nov, Acute non intractable tensio n-type headache G44.209 [place] [address] [address] Nov, Bipolar disorder, current episode mixed, moderate F31.62 ; Post traumatic stress disorder F43.10 and Borderline personality disorder F60.3 [place] [address] [address] Nov, Bipolar disorder, current episode mixed, moderate F31.62 [facility] [place] [address] [place] [id number] [place] [address] Nov, Abdominal pain R10.9 ; Histo ry of PCOS Z87.42 ; History of endometriosis Z87.42 and Pelvic pain R10.2 [place] [address] [address] Nov, [facility] N [place] [id number] [place] [address] Oct, History of PCOS Z87.42 ; His tory of endometriosis Z87.42 and Pain R52 [place] [address] [address] Oct, Bipolar disorder, current episode mixed, moderate F31.62 ; Post traumatic stress disorder F43.10 and Borderline personality disorder F60.3 [place] [address] [address] Oct, Bipolar disorder, current episode mixed, moderate F31.62 [place] [address] [place] [address] Sep, Bipolar disorder, current episode mixed, moderate F31.62 ; Post traumatic stress disorder F43.10 ; Borderline personality disorder F60.3 and Other fdc (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 Z79.899 [place] [address] [address] Sep, Bipolar disorder, current episode mixed, moderate F31.62 [facility] [place] [address] [place] [id number] [place] [address] Sep, Endometriosis N80.9 and Acut e right-sided low back pain with right-sided sciatica M54.41 [place] [address] [address] Aug, [place] [address] [address] Aug, Bipolar disorder, current episode mixed, moderate F31.62 ; Post traumatic stress disorder F43.10 and Borderline personality disorder F60.3 [place] [address] [address] Aug, Bipolar disorder, current episode mixed, moderate F31.62 ; Post traumatic stress disorder F43.10 and Borderline personality disorder F60.3 [place] [address] [address] 13 Jul, 2017 Bipolar disorder, current episode mixed, moderate F31.62 ; Post traumatic stress disorder F43.10 and Borderline personality disorder F60.3 [facility] N [facility] [id number] [address] [place] [address] 11 Jul, 2017 Pharyngitis, unspecified peter ology J02.9 and Streptococcal pharyngitis J02.0 [place] [address] [address] Jun, Bipolar disorder, current episode mixed, moderate F31.62 ; Post traumatic stress disorder F43.10 and Borderline personality disorder F60.3 [facility] [address] [address] May, [facility] [address] [address] May, [facility] [address] [address] May, Bipolar disorder, current episode mixed, moderate F31.62 and Generalized anxiety disorder F41.1 [facility] [address] [address] March, Bipolar disorder, current episode mixed, moderate F31.62 and Generalized anxiety disorder F41.1 [place] [address] [address] March, Pelvic pain R10.2 [facility] [address] [address] March, [facility] [address] [address] Feb, Bipolar disorder, current episode mixed, moderate F31.62 and Generalized anxiety disorder F41.1 [facility] [address] [place] [id number] [place] [address] Jan, [facility] [address] [address] Jan, Bipolar disorder, current episode mixed, moderate F31.62 [facility] [address] [address] Jan, Bipolar disorder, current episode mixed, moderate F31.62 [facility] [address] [place] [id number] [place] [address] Jan, Bilateral low back pain without sciatica M54.5 [facility] [address] [facility] [place] [id number] Jan, Dental caries K02.9 and Dental examinati on Z01.20 [facility] [address] [id number] Jan, 2017 Encounter for dental examination and ryne aning without abnormal findings Z01.20 [facility] [address] [address] 06 Jan, 2017 Bipolar disorder, current episode mixed, moderate F31.62 and Generalized anxiety disorder F41.1 [facility] [address] [address] 24 Dec, 2016 [facility] [address] [place] [address] 06 Dec, 2016 Bipolar disorder, current episode mixed, moderate F31.62 and Generalized anxiety disorder F41.1 [place] [address] [address] 03 Dec, 2016 Other fatigue R53.83 and Orthostatic hyp otension I95.1 [facility] [address] [id number] Nov, Dental examination Z01.20 [facility] [address] [place] [id number] [place] [address] 02 Nov, [address] [facility] [address] [address] 14 Oct, 2016 Generalized anxiety disorder F41.1 [facility] [address] [address] 14 Sep, 2016 Bipolar disorder, current episode mixed, moderate F31.62 and Generalized anxiety disorder F41.1 [facility] [address] [address] 02 Sep, 2016 Bipolar disorder, current episode mixed, moderate F31.62 and Generalized anxiety disorder F41.1 [facility] [address] [place] [id number] [place] [address] 08 Jul, 2016 Upper respiratory tract infe ction, unspecified type J06.9 [place] [address] [place] [id number] [place] [address] Jun, Bipolar disorder, current episode mixed, moderate F31.62 and Generalized anxiety disorder F41.1 [facility] [address] [address] Apr, [facility] [address] [address] Apr, Encounter for test, result pos itive Z32.01 [facility] [address] [address] March, [place] [address] [address] March, Bipolar disorder, current episode mixed, moderate F31.62 and Generalized anxiety disorder F41.1 [place] [address] [address] March, Bipolar disorder, current episode mixed, moderate F31.62 and Generalized anxiety disorder F41.1 [place] [address] [address] March, [facility] [address] [address] March, [facility] [address] [address] Feb, [facility] [address] [address] Feb, [facility] [address] [address] Feb, Bipolar disorder, current episode mixed, moderate F31.62 and Generalized anxiety disorder F41.1 [facility] [address] [address] 22 Jan, [address] [facility] [address] [address] 14 Jan, 2016 [facility] [address] [address] 29 Dec, 2015 Dental examination Z01.20 [place] [address] [address] 22 Dec, 2015 Dental examination Z01.20 and Dental car ies K02.9 [place] [address] [address] 15 Dec, 2015 Bipolar disorder, current episode mixed, moderate F31.62 and Generalized anxiety disorder F41.1 [place] [address] [address] 15 Dec, 2015 [place] [address] [address] Nov, Bipolar disorder, current episode mixed, moderate F31.62 ; Generalized anxiety disorder F41.1 and Seizure-like activity R56.9 [place] [address] [address] Oct, [place] [address] [address] Oct, Bipolar disorder, current episode mixed, moderate F31.62 [place] [address] [address] 14 Oct, 2015 Well woman exam Z01.419 [...] Tobacco use Z72.0 and Hot flashes N95.1 [place] [address] [address] 09 Oct, 2015 Seizure-like activity R56.9 and Irregula r periods N92.6 [place] [address] [address] Oct, Bipolar disorder, current episode mixed, moderate F31.62 ; Generalized anxiety disorder F41.1 and Underweight R63.6 [place] [address] [address] Oct, [facility] [address] [address] Oct, Generalized anxiety disorder F41.1 and U nspecified mood [affective] disorder F39 [facility] [address] [address] Oct, Back pain M54.9 and Anxiety F41.9 [place] [address] [address] Oct, [facility] [address] [address] Sep, Arm pain, left M79.602 [place] [address] [address] Sep, [facility] [address] [id number] Sep, Dental examination Z01.20 and Dental car ies K02.[address] [address] Sep, Generalized anxiety disorder F41.1 and U nspecified episodic mood disorder F39 [place] [address] [address] Sep, Bilateral low back pain without sciatica M54.5 and Seizure-like activity R56.9 [place] [address] [address] Aug, [place] [address] [address] 16 Aug, 2015 [place] [address] [address] Aug, [facility] [address] [address] Aug, Visual changes H53.9 and Bilateral low b ack pain without sciatica M54.5 [facility] [address] [place] [id number] [place] [address] Jul, [facility] [address] [address] Jun, Bipolar I disorder, most recent episode (or current) mixed, moderate 296.62 ; Generalized anxiety disorder 300.02 and High risk medication use V58.69 [facility] [address] [address] Jun, [facility] [address] [address] May, [facility] [address] [address] May, Bipolar I disorder, most recent episode (or current) mixed, moderate 296.62 and Generalized anxiety disorder 300.02 [facility] [address] [facility] [place] [id number] May, Dental examination V72.2 [facility] [address] [address] March, Bipolar I disorder, most recent episode (or current) mixed, moderate 296.62 and Generalized anxiety disorder 300.02 [facility] [address] [address] March, [facility] [address] [address] March, [facility] [address] [address] March, Underweight 783.22 ; Hand pain, right 72 9.5 [address] Ref[address] gastritis 535.40 [facility] [address] [address] Feb, [facility] [address] [place] [address] 13 Feb, 2014 [facility] [address] [id number] [place] [address] 18 Jan, 2015 [facility] [address] [id number] [place] [address] 18 Jan, 2015 [facility] [address] [id number] [place] [address] 16 Jan, 2015 [facility] [address] [id number] [place] [address] 16 Jan, 2015 [facility] [address] [id number] [place] [address] 13 Jan, 2015 [facility] [address] [id number] [place] [address] Jan, [facility] [address] [id number] [place] [address] 05 Jan, 2015 [facility] [address] [id number] [place] [address] 05 Jan, 2015 [facility] [address] [id number] [place] [address] Jan, [facility] [address] [id number] [place] [address] Jan, [facility] [address] [id number] [place] [address] Jan, [facility] [address] [id number] [place] [address] Jan, [facility] [address] [id number] [place] [address] Dec, [facility] [address] [id number] [place] [address] Dec, [facility] [address] [id number] [place] [address] Dec, [facility] [address] [id number] [place] [address] Dec, [facility] [address] [id number] [place] [address] 18 Dec, 2014 [facility] [address] [id number] [place] [address] Dec, 2014 [facility] [address] [id number] [place] [address] Dec, 2014 [facility] [address] [id number] [place] [address] Dec, 2014 [facility] [address] [id number] [place] [address] Dec, 2014 [facility] [address] [id number] [place] [address] Dec, 2014 [facility] [address] [id number] [place] [address] Dec, 2014 [facility] [address] [id number] [place] [address] Dec, 2014 [facility] [address] [id number] [place] [address] Dec, 2014 [facility] [address] [id number] [place] [address] Dec, 2014 [facility] [address] [id number] [place] [address] Dec, 2014 [facility] [address] [id number] [place] [address] Dec, 2014 [facility] [address] [id number] [place] [address] Dec, 2014 [facility] [address] [id number] [place] [address] Dec, 2014 [facility] [address] [id number] [place] [address] Dec, 2014 [facility] [address] [id number] [place] [address] Nov, [facility] [address] [id number] [place] [address] Nov, [facility] [address] [id number] [place] [address] Nov, [facility] [address] [id number] [place] [address] Nov, [facility] [address] [place] [id number] [place] [address] Nov, [facility] [address] [id number] [place] [address] Nov, [facility] [address] [id number] [place] [id number] Nov, [facility] [address] [id number] [place] [address] Nov, [facility] [address] [address] [id number] [place] [address] Nov, [facility] [address] [id number] [place] [id number] Nov, [facility] [address] [id number] [place] [address] Nov, [facility] [address] [id number] [place] [address] Nov, [facility] [address] [id number] [place] [address] Oct, [facility] [id number] [place] [address] Oct, [facility] [id number] [place] [address] Oct, [facility] [id number] [place] [address] Oct, [facility] [id number] [place] [address] Oct, [facility] [address] [id number] [place] [address] Oct, [facility] [id number] [place] [address] Oct, [facility] [id number] [place] [address] Oct, [facility] [id number] [place] [address] Oct, [facility] [id number] [place] [address] Oct, [facility] [id number] [place] [address] Oct, [facility] [id number] [place] [address] Oct, [facility] [id number] [place] [address] Sep, [facility] [address] [id number] [place] [address] Sep, [facility] [id number] [place] [address] Sep, [facility] [id number] [place] [address] Sep, [facility] [id number] [place] [address] Sep, [facility] [id number] [place] [address] Sep, [facility] [id number] [place] [address] Sep, [facility] [id number] [place] [address] Sep, [facility] [id number] [place] [address] Aug, [facility] [id number] [place] [address] Aug, [facility] [id number] [place] [address] Aug, [facility] [address] [facility] [id number] [place] [address] Aug, [facility] [address] [facility] [id number] [place] [address] Aug, [facility] [id number] [place] [address] Aug, [facility] [address] [facility] [id number] [place] [address] Aug, [facility] [address] [facility] [id number] [place] [address] Aug, [facility] [id number] [place] [address] Aug, [facility] [id number] [place] [address] Aug, [facility] [id number] [place] [address] Aug, [facility] [address] [facility] [id number] [place] [address] Aug, [facility] [id number] [place] [address] Aug, [facility] [id number] [place] [address] Jul, [facility] [id number] [place] [address] Jul, [facility] [address] [facility] [id number] [place] [address] Jul, [facility] [id number] [place] [address] Jul, [facility] [id number] [place] [address] Jun, [facility] [id number] [place] [address] Jun, [facility] [address] [facility] [id number] [facility] [address] Jun, [facility] [address] [id number] [place] [address] Jun, [facility] [address] [facility] [id number] [place] [address] Jun, [facility] [id number] [place] [address] Jun, [facility] [address] [facility] [id number] [place] [address] May, [facility] [address] [facility] [id number] [place] [address] May, [facility] [id number] [place] [address] May, [facility] [id number] [place] [address] May, [facility] [id number] [place] [address] Apr, [facility] [address] [facility] [id number] [place] [address] Apr, [facility] [id number] [place] [address] March, [facility] [id number] [place] [address] March, [facility] [id number] [place] [address] March, [facility] [address] [facility] [id number] [place] [address] March, [facility] [id number] [place] [address] March, [facility] [id number] [place] [address] March, [facility] [id number] [place] [address] Feb, [facility] [id number] [place] [address] Feb, [facility] [id number] [place] [address] Dec, [facility] [id number] [place] [address] Dec, [facility] [id number] [place] [address] Nov, [facility] [id number] [place] [address] Nov, [facility] [id number] [place] [address] Sep, [facility] [id number] [place] [address] Sep, [facility] [id number] [place] [address] Sep, [facility] [id number] [place] [address] Sep, [facility] [id number] [place] [address] Sep, [facility] [id number] [place] [address] Sep, [facility] [id number] [place] [address] Sep, [facility] [id number] [place] [address] Aug, [facility] [id number] [place] [address] Aug, [facility] [id number] [place] [address] Aug, [facility] [id number] [place] [address] Aug, [facility] [id number] [place] [address] Aug, [facility] [address] [id number] [facility] [address] Aug, [facility] [address] [facility] [id number] [facility] [address] Jul, [facility] [id number] [place] [address] Jul, [facility] [address] [facility] [id number] [place] [address] Jul, [facility] [address] [facility] [id number] [facility] [address] Jul, [facility] [id number] [place] [address] Jun, [facility] [id number] [place] [address] Jun, [facility] [id number] [place] [address] Jun, [facility] [address] [facility] [id number] [place] [address] Jun, [facility] [id number] [place] [address] Jun, [facility] [id number] [place] [address] Jun, [facility] [id number] [place] [address] Jun, [facility] [address] [facility] [id number] [place] [address] May, [facility] [id number] [place] [address] May, [facility] [address] [facility] [id number] [place] [address] May, [facility] [id number] [place] [address] May, [facility] [address] [facility] [id number] [place] [address] 13 May, 2013 [facility] [address] [facility] [id number] [place] [address] 05 May, 2013 [facility] [id number] [place] [address] 03 May, 2013 [facility] [id number] [place] [address] 28 Apr, 2013 [facility] [address] [facility] [id number] [place] [address] 27 Apr, 2013 [facility] [id number] [place] [address] 27 Apr, 2013 [facility] [id number] [place] [address] 26 Apr, 2013 [facility] [id number] [place] [address] 20 Apr, 2013 [facility] [id number] [place] [address] 18 Apr, 2013 [facility] [id number] [place] [address] 18 Apr, 2013 [facility] [id number] [place] [address] 18 Apr, 2013 [facility] [id number] [place] [address] 17 Apr, 2013 [facility] [id number] [place] [address] 14 Apr, 2013 [facility] [address] [facility] [id number] [place] [address] 14 Apr, 2013 [facility] [id number] [place] [address] 11 Apr, 2013 [facility] [id number] [place] [address] 10 Apr, 2013 [facility] [id number] [place] [address] 09 Apr, 2013 [facility] [id number] [place] [address] Apr, [facility] [id number] [place] [address] Apr, [facility] [id number] [place] [address] Apr, [facility] [id number] [place] [address] Apr, [facility] [address] [facility] [id number] [place] [address] Apr, [facility] [id number] [place] [address] March, [facility] [id number] [place] [address] March, [facility] [id number] [place] [address] March, [facility] [id number] [place] [address] March, [facility] [id number] [place] [address] March, [facility] [id number] [place] [address] March, [facility] [id number] [place] [address] March, [facility] [id number] [place] [address] Feb, [facility] [id number] [place] [address] Feb, [facility] [id number] [place] [address] Jan, [facility] [id number] [place] [address] Jan, [facility] [id number] [place] [address] 15 Jan, 2013 [facility] [address] [facility] [id number] [place] [address] 14 Jan, 2013 [facility] [id number] [place] [address] 13 Jan, 2013 [facility] [id number] [place] [address] 12 Jan, 2013 [facility] [id number] [place] [address] 11 Jan, 2013 [facility] [id number] [place] [address] 09 Jan, 2013 [facility] [id number] [place] [address] 08 Jan, 2013 [facility] [id number] [place] [address] 07 Jan, 2013 [facility] [id number] [place] [address] 06 Jan, 2013 [facility] [id number] [place] [address] 17 Nov, 2012 [facility] [id number] [place] [address] Oct, [facility] [id number] [place] [address] Oct, [facility] [id number] [place] [address] Oct, [facility] [id number] [place] [address] Oct, [facility] [id number] [place] [address] Sep, [facility] [id number] [place] [address] Sep, [facility] [id number] [place] [address] Sep, [facility] [id number] [place] [address] 16 Sep, 2012 [facility] [id number] [place] [address] Sep, [facility] [id number] [place] [address] Sep, [facility] [id number] [place] [address] Sep, [facility] [id number] [place] [address] Sep, [facility] [id number] [place] [address] Sep, [facility] [id number] [place] [address] Sep, [facility] [id number] [place] [address] Sep, [facility] [id number] [place] [address] Aug, [facility] [id number] [place] [address] Aug, [facility] [id number] [place] [address] Aug, [facility] [id number] [place] [address] 28 Jul, 2012 [facility] [id number] [place] [address] 25 Jul, 2012 [facility] [id number] [place] [address] 19 Jul, 2012 [facility] [id number] [place] [address] 17 Jul, 2012 [facility] [id number] [place] [address] Jun, [facility] [id number] [place] [address] Jun, [facility] [address] [id number] [facility] [address] 15 Jun, 2012 [facility] [address] [facility] [id number] [facility] [address] 15 Jun, 2012 [facility] [id number] [facility] [address] 13 Jun, 2012 [facility] [id number] [facility] [address] March, [facility] [address] [facility] [id number] [facility] [address] 04 Feb, 2012 [facility] [id number] [place] [address] 28 Jan, 2012 [facility] [id number] [place] [address] Jan, [facility] [id number] [place] [address] 22 Jan, 2012 [facility] [id number] [place] [address] 14 Jan, 2012 [facility] [id number] [place] [address] 14 Jan, 2012 [facility] [id number] [place] [address] 14 Jan, 2012 [facility] [id number] [place] [address] 28 Dec, 2011 [facility] [id number] [facility] [address] 27 Dec, 2011 [facility] [address] [id number] [place] [address] 23 Dec, 2011 [facility] [id number] [place] [address] 21 Dec, 2011 [facility] [id number] [place] [address] 20 Dec, 2011 [facility] [id number] [place] [address] Dec, [facility] [id number] [place] [address] Dec, [facility] [id number] [place] [address] Dec, [facility] [id number] [place] [address] Nov, [facility] [address] [address] Oct, [facility] [address] [address] Sep, [facility] [address] [address] Sep, [facility] [address] [address] Sep, [facility] [address] [address] Sep, [facility] [id number] [place] [address] Sep, [facility] [id number] [place] [address] Sep, [facility] [id number] [place] [address] Jan, [facility] [id number] [place] [address] Apr, IMMUNIZATIONS No Known Immunizations SOCIAL HISTORY Never Assessed REASON FOR VISIT PLAN OF CARE VITAL SIGNS Height 66 in 2013-12-10 Weight 128.12 lbs 2013-12-10 Temperature 98.8 degrees Fahrenheit 2013-12-10 Heart Rate 80 bpm 2013-12-10 Respiratory Rate 24 2013-12-10 Blood pressure systolic 114 mmHg 2013-12-10 Blood pressure diastolic 68 mmHg 2013-12-10 MEDICATIONS No Known Medications RESULTS No Results [...] Hospitalization History [facility] Admission x4 2009 most rec ent admission Hospitalization History [facility]; overdose 2010 Hospitalization History child 11/29/2016 Hospitalization History [facility] 02/2019
--- OUTSIDE RECORDS SUMMARY | 2020-02-10 18:01 | XMS REPORT ---
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 Name Role Phone Migration, Doctor Unavailable Unavailable PROBLEMS Type Condition ICD9-CM Code [id number] Code Onset Dates Condition S tatus SNOMED Code Problem Generalized anxiety disorder F41.1 A ctive 08434144 Problem Bipolar disorder, current episode mixed, moderate F31.62 Active 699059868 Problem Post traumatic stress disorder F43.10 Active 03287802 Problem Constipation K59.00 Active 5171809 8 Problem Other chronic pain G89.29 Active 8 3488667 Problem Borderline personality disorder F60.3 Active 24784667 Problem Endometriosis N80.9 Active 313051 003 Problem Acute right-sided low back pain with right-sided sciatica M54.41 Active 309379836 Problem Acute non intractable tension-type headache G44.20 9 Active [id number] ALLERGIES No Information ENCOUNTERS Encounter Location Date Diagnosis [facility] [address] [address] Dec, Periumbilical abdominal pain R10.33 and Dehydration E86.0 [facility] [address] [address] Dec, Influenza B J10.1 [facility] [address] [address] Oct, Facial pain R51 and Concussi on with loss of consciousness, subsequent encounter S06.0X9D [facility] [address] [address] Oct, Non-recurrent acute suppurat dmitry otitis media of both ears without spontaneous rupture of tympanic membranes H66.003 [facility] [address] [address] Sep, Viral upper respiratory illn ess J06.9 and Fever R50.9 [facility] [address] [place] [id number] [place] [address] Jul, Tongue lesion K14.8 [facility] [address] [place] [id number] [place] [address] May, Low back pain M54.5 ; Other chronic pain G89.29 ; Lower abdominal pain R10.30 and Otalgia of right ear H92.01 [place] [address] [address] Apr, Bipolar disorder, current episode mixed, moderate F31.62 [place] [address] [address] Apr, Bipolar disorder, current episode mixed, moderate F31.62 ; Post traumatic stress disorder F43.10 and Borderline personality disorder F60.3 [place] [address] [address] March, Bipolar disorder, current episode mixed, moderate F31.62 [place] [address] [address] March, Bipolar disorder, current episode mixed, moderate F31.62 [facility] [place] [address] [place] [id number] [place] [address] March, Bronchitis J40 [place] [address] [address] Feb, Bipolar disorder, current episode mixed, moderate F31.62 ; Post traumatic stress disorder F43.10 ; Borderline personality disorder F60.3 and Other long term care administrator (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 Z79.899 [place] [address] [address] Feb, Pelvic floor dysfunction M62.89 [place] [address] [address] Feb, Bipolar disorder, current episode mixed, moderate F31.62 [facility] [address] [address] Jan, Dehydration E86.0 and Back m uscle spasm M62.830 [place] [address] [address] Jan, Bipolar disorder, current episode mixed, moderate F31.62 ; Post traumatic stress disorder F43.10 ; Borderline personality disorder F60.3 and Other long term care administrator (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 Z79.899 [facility] [address] [address] Jan, Cough R05 and Viral upper re spiratory tract infection J06.9 [place] [address] [address] Jan, Bipolar disorder, current episode mixed, moderate F31.62 [place] [address] [address] Dec, Bipolar disorder, current episode mixed, moderate F31.62 [place] [address] [address] Nov, Bipolar disorder, current episode mixed, moderate F31.62 [facility] [address] [address] Oct, Sore throat J02.9 [facility] [place] [address] [address] Oct, Abdominal pain R10.9 ; Low b ack pain M54.5 ; Left shoulder pain M25.512 and Constipation K59.00 [place] [address] [address] Oct, Bipolar disorder, current episode mixed, moderate F31.62 ; Post traumatic stress disorder F43.10 and Borderline personality disorder F60.3 [place] [address] [address] Sep, Bipolar disorder, current episode mixed, moderate F31.62 [place] [address] [place] [id number] Aug, Bipolar disorder, current episode mixed, moderate F31.62 [facility] [address] [place] [address] Jul, Thrombophlebitis I80.9 and Pelvic pain R 10.2 [facility] [address] [address] 05 Jul, 2018 Bipolar disorder, current episode mixed, moderate F31.62 ; Post traumatic stress disorder F43.10 and Borderline personality disorder F60.3 [place] [address] [address] Jun, Bipolar disorder, current episode mixed, moderate F31.62 [place] [address] [address] May, Palpitations R00.2 [place] [address] [address] May, Palpitations R00.2 [place] [address] [address] May, Palpitations R00.2 and Frequent bowel mo vements R19.4 [place] [address] [address] May, Bipolar disorder, current episode mixed, moderate F31.62 ; Post traumatic stress disorder F43.10 and Borderline personality disorder F60.3 [facility] [address] [facility] [place] [id number] 15 Apr, 2018 Dental examination Z01.20 [facility] [address] [place] [id number] [place] [address] 15 Apr, 2018 [facility] [address] [address] Apr, Dental examination Z01.20 [facility] [address] [facility] [id number] [address] [place] [address] Apr, Tooth pain K08.89 [place] [address] [address] Apr, Bipolar disorder, current episode mixed, moderate F31.62 ; Post traumatic stress disorder F43.10 and Borderline personality disorder F60.3 [facility] [address] [place] [id number] [place] [address] March, Abdominal pain R10.9 ; UTI s ymptoms R39.9 and Other microscopic hematuria R31.29 [place] [address] [address] March, [place] [address] [address] March, Bipolar disorder, current episode mixed, moderate F31.62 ; Post traumatic stress disorder F43.10 and Borderline personality disorder F60.3 [place] [address] [address] Feb, Encounter for immunization Z23 [place] [address] [address] Feb, Bipolar disorder, current episode mixed, moderate F31.62 ; Post traumatic stress disorder F43.10 and Borderline personality disorder F60.3 [place] [address] [address] Feb, Bipolar disorder, current episode mixed, moderate F31.62 ; Post traumatic stress disorder F43.10 ; Borderline personality disorder F60.3 and 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 [place] [address] [address] Jan, Encounter for immunization Z23 [place] [address] [address] Jan, [place] [address] [address] Jan, Bipolar disorder, current episode mixed, moderate F31.62 [facility] [address] [place] [id number] [place] [address] Jan, Lumbar back pain M54.5 [place] [address] [address] 28 Dec, 2017 Low back pain M54.5 [place] [address] [address] 13 Dec, 2017 Bipolar disorder, current episode mixed, moderate F31.62 [place] [address] [address] Dec, Generalized anxiety disorder F41.1 and B ipolar disorder, current episode mixed, moderate F31.62 [facility] [place] [address] [place] [address] Nov, Acute non intractable tensio n-type headache G44.209 [place] [address] [address] Nov, Bipolar disorder, current episode mixed, moderate F31.62 ; Post traumatic stress disorder F43.10 and Borderline personality disorder F60.3 [place] [address] [address] Nov, Bipolar disorder, current episode mixed, moderate F31.62 [facility] [place] [address] [place] [id number] [place] [address] Nov, Abdominal pain R10.9 ; Histo ry of PCOS Z87.42 ; History of endometriosis Z87.42 and Pelvic pain R10.2 [place] [address] [address] Nov, [facility] [address] [place] [id number] [place] [address] Oct, History of PCOS Z87.42 ; His tory of endometriosis Z87.42 and Pain R52 [place] [address] [address] Oct, Bipolar disorder, current episode mixed, moderate F31.62 ; Post traumatic stress disorder F43.10 and Borderline personality disorder F60.3 [place] [address] [address] Oct, Bipolar disorder, current episode mixed, moderate F31.62 [place] [address] [place] [address] Sep, Bipolar disorder, current episode mixed, moderate F31.62 ; Post traumatic stress disorder F43.10 ; Borderline personality disorder F60.3 and 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 [place] [address] [address] Sep, Bipolar disorder, current episode mixed, moderate F31.62 [facility] [place] [address] [place] [id number] [place] [address] Sep, Endometriosis N80.9 and Acut e right-sided low back pain with right-sided sciatica M54.41 [place] [address] [address] Aug, [place] [address] [address] Aug, Bipolar disorder, current episode mixed, moderate F31.62 ; Post traumatic stress disorder F43.10 and Borderline personality disorder F60.3 [place] [address] [address] Aug, Bipolar disorder, current episode mixed, moderate F31.62 ; Post traumatic stress disorder F43.10 and Borderline personality disorder F60.3 [place] [address] [address] 13 Jul, 2017 Bipolar disorder, current episode mixed, moderate F31.62 ; Post traumatic stress disorder F43.10 and Borderline personality disorder F60.3 [facility] N [facility] [id number] [address] [place] [address] 11 Jul, 2017 Pharyngitis, unspecified peter ology J02.9 and Streptococcal pharyngitis J02.0 [place] [address] [address] Jun, Bipolar disorder, current episode mixed, moderate F31.62 ; Post traumatic stress disorder F43.10 and Borderline personality disorder F60.3 [facility] [address] [address] May, [facility] [address] [address] May, [facility] [address] [address] May, Bipolar disorder, current episode mixed, moderate F31.62 and Generalized anxiety disorder F41.1 [facility] [address] [address] March, Bipolar disorder, current episode mixed, moderate F31.62 and Generalized anxiety disorder F41.1 [place] [address] [address] March, Pelvic pain R10.2 [facility] [address] [address] March, [facility] [address] [address] Feb, Bipolar disorder, current episode mixed, moderate F31.62 and Generalized anxiety disorder F41.1 [facility] [address] [place] [id number] [place] [address] Jan, [facility] [address] [address] Jan, Bipolar disorder, current episode mixed, moderate F31.62 [facility] [address] [address] Jan, Bipolar disorder, current episode mixed, moderate F31.62 [facility] [address] [place] [id number] [place] [address] Jan, Bilateral low back pain without sciatica M54.5 [facility] [address] [facility] [place] [id number] Jan, Dental caries K02.9 and Dental examinati on Z01.20 [facility] [address] [id number] Jan, 2017 Encounter for dental examination and ryne aning without abnormal findings Z01.20 [facility] [address] [address] 06 Jan, 2017 Bipolar disorder, current episode mixed, moderate F31.62 and Generalized anxiety disorder F41.1 [facility] [address] [address] 24 Dec, 2016 [facility] [address] [place] [address] 06 Dec, 2016 Bipolar disorder, current episode mixed, moderate F31.62 and Generalized anxiety disorder F41.1 [place] [address] [address] 03 Dec, 2016 Other fatigue R53.83 and Orthostatic hyp otension I95.1 [facility] [address] [id number] Nov, Dental examination Z01.20 [facility] [address] [place] [id number] [place] [address] 02 Nov, 2016 Bronchitis J40 [facility] [address] [address] 14 Oct, 2016 Generalized anxiety disorder F41.1 [facility] [address] [address] 14 Sep, 2016 Bipolar disorder, current episode mixed, moderate F31.62 and Generalized anxiety disorder F41.1 [facility] [address] [address] 02 Sep, 2016 Bipolar disorder, current episode mixed, moderate F31.62 and Generalized anxiety disorder F41.1 [facility] [address] [place] [id number] [place] [address] 08 Jul, 2016 Upper respiratory tract infe ction, unspecified type J06.9 [place] [address] [place] [id number] [place] [address] Jun, Bipolar disorder, current episode mixed, moderate F31.62 and Generalized anxiety disorder F41.1 [facility] [address] [address] Apr, [facility] [address] [address] Apr, Encounter for test, result pos itive Z32.01 [facility] [address] [address] March, [place] [address] [address] March, Bipolar disorder, current episode mixed, moderate F31.62 and Generalized anxiety disorder F41.1 [place] [address] [address] March, Bipolar disorder, current episode mixed, moderate F31.62 and Generalized anxiety disorder F41.1 [place] [address] [address] March, [facility] [address] [address] March, [facility] [address] [address] Feb, [facility] [address] [address] Feb, [facility] [address] [address] Feb, Bipolar disorder, current episode mixed, moderate F31.62 and Generalized anxiety disorder F41.1 [facility] [address] [address] 22 Jan, 2016 Abdominal pain R10.9 [facility] [address] [address] 14 Jan, 2016 [facility] [address] [address] 29 Dec, 2015 Dental examination Z01.20 [place] [address] [address] 22 Dec, 2015 Dental examination Z01.20 and Dental car ies K02.9 [place] [address] [address] 15 Dec, 2015 Bipolar disorder, current episode mixed, moderate F31.62 and Generalized anxiety disorder F41.1 [place] [address] [address] 15 Dec, 2015 [place] [address] [address] Nov, Bipolar disorder, current episode mixed, moderate F31.62 ; Generalized anxiety disorder F41.1 and Seizure-like activity R56.9 [place] [address] [address] Oct, [place] [address] [address] Oct, Bipolar disorder, current episode mixed, moderate F31.62 [place] [address] [address] 14 Oct, 2015 Well woman exam Z01.419 [...] Tobacco use Z72.0 and Hot flashes N95.1 [place] [address] [address] 09 Oct, 2015 Seizure-like activity R56.9 and Irregula r periods N92.6 [place] [address] [address] Oct, Bipolar disorder, current episode mixed, moderate F31.62 ; Generalized anxiety disorder F41.1 and Underweight R63.6 [place] [address] [address] Oct, [facility] [address] [address] Oct, Generalized anxiety disorder F41.1 and U nspecified mood [affective] disorder F39 [facility] [address] [address] Oct, Back pain M54.9 and Anxiety F41.9 [place] [address] [address] Oct, [facility] [address] [address] Sep, Arm pain, left M79.602 [place] [address] [address] Sep, [facility] [address] [id number] Sep, Dental examination Z01.20 and Dental car ies K02.[address] [address] Sep, Generalized anxiety disorder F41.1 and U nspecified episodic mood disorder F39 [place] [address] [address] Sep, Bilateral low back pain without sciatica M54.5 and Seizure-like activity R56.9 [place] [address] [address] Aug, [place] [address] [address] 16 Aug, 2015 [place] [address] [address] Aug, [facility] [address] [address] Aug, Visual changes H53.9 and Bilateral low b ack pain without sciatica M54.5 [facility] [address] [place] [id number] [place] [address] Jul, [facility] [address] [address] Jun, Bipolar I disorder, most recent episode (or current) mixed, moderate 296.62 ; Generalized anxiety disorder 300.02 and High risk medication use V58.69 [facility] [address] [address] Jun, [facility] [address] [address] May, [facility] [address] [address] May, Bipolar I disorder, most recent episode (or current) mixed, moderate 296.62 and Generalized anxiety disorder 300.02 [facility] [address] [facility] [place] [id number] May, Dental examination V72.2 [facility] [address] [address] March, Bipolar I disorder, most recent episode (or current) mixed, moderate 296.62 and Generalized anxiety disorder 300.02 [facility] [address] [address] March, [facility] [address] [address] March, [facility] [address] [address] March, Underweight 783.22 ; Hand pain, right 72 9.5 and Reflux gastritis 535.40 [facility] [address] [address] Feb, [facility] [address] [place] [address] 13 Feb, 2014 [facility] [address] [id number] [place] [address] 18 Jan, 2015 [facility] [address] [id number] [place] [address] 18 Jan, 2015 [facility] [address] [id number] [place] [address] 16 Jan, 2015 [facility] [address] [id number] [place] [address] 16 Jan, 2015 [facility] [address] [id number] [place] [address] 13 Jan, 2015 [facility] [address] [id number] [place] [address] Jan, [facility] [address] [id number] [place] [address] 05 Jan, 2015 [facility] [address] [id number] [place] [address] 05 Jan, 2015 [facility] [address] [id number] [place] [address] Jan, [facility] [address] [id number] [place] [address] Jan, [facility] [address] [id number] [place] [address] Jan, [facility] [address] [id number] [place] [address] Jan, [facility] [address] [id number] [place] [address] Dec, [facility] [address] [id number] [place] [address] Dec, [facility] [address] [id number] [place] [address] Dec, [facility] [address] [id number] [place] [address] Dec, [facility] [address] [id number] [place] [address] 18 Dec, 2014 [facility] [address] [id number] [place] [address] Dec, 2014 [facility] [address] [id number] [place] [address] Dec, 2014 [facility] [address] [id number] [place] [address] Dec, 2014 [facility] [address] [id number] [place] [address] Dec, 2014 [facility] [address] [id number] [place] [address] Dec, 2014 [facility] [address] [id number] [place] [address] Dec, 2014 [facility] [address] [id number] [place] [address] Dec, 2014 [facility] [address] [id number] [place] [address] Dec, 2014 [facility] [address] [id number] [place] [address] Dec, 2014 [facility] [address] [id number] [place] [address] Dec, 2014 [facility] [address] [id number] [place] [address] Dec, 2014 [facility] [address] [id number] [place] [address] Dec, 2014 [facility] [address] [id number] [place] [address] Dec, 2014 [facility] [address] [id number] [place] [address] Dec, 2014 [facility] [address] [id number] [place] [address] Nov, [facility] [address] [id number] [place] [address] Nov, [facility] [address] [id number] [place] [address] Nov, [facility] [address] [id number] [place] [address] Nov, [facility] [address] [place] [id number] [place] [address] Nov, [facility] [address] [id number] [place] [address] Nov, [facility] [address] [place] [id number] [place] [id number] Nov, [facility] [address] [id number] [place] [address] Nov, [facility] [address] [place] [id number] [place] [address] Nov, [facility] [address] [id number] [place] [id number] Nov, [facility] [address] [id number] [place] [address] Nov, [facility] [address] [id number] [place] [address] Nov, [facility] [address] [id number] [place] [address] Oct, [facility] [address] [id number] [place] [address] Oct, [facility] [address] [id number] [place] [address] Oct, [facility] [address] [id number] [place] [address] Oct, [facility] [address] [id number] [place] [address] Oct, [facility] [address] [id number] [place] [address] Oct, [facility] [address] [id number] [place] [address] Oct, [facility] [address] [id number] [place] [address] Oct, [facility] [address] [facility] [id number] [place] [address] Oct, [facility] [address] [facility] [id number] [place] [address] Oct, [facility] [address] [id number] [place] [address] Oct, [facility] [address] [id number] [place] [address] Oct, [facility] [address] [id number] [place] [address] Sep, [facility] [id number] [place] [address] Sep, [facility] [address] [id number] [place] [address] Sep, [facility] [address] [id number] [place] [address] Sep, [facility] [address] [id number] [place] [address] Sep, [facility] [address] [id number] [place] [address] Sep, [facility] [address] [id number] [place] [address] Sep, [facility] [address] [id number] [place] [address] Sep, [facility] [address] [facility] [id number] [place] [address] Aug, [facility] [address] [facility] [id number] [place] [address] Aug, [facility] [address] [id number] [place] [address] Aug, [facility] [address] [facility] [id number] [place] [address] Aug, [facility] [address] [facility] [id number] [place] [address] Aug, [facility] [address] [id number] [place] [address] Aug, [facility] [address] [facility] [id number] [place] [address] Aug, [facility] [address] [facility] [id number] [place] [address] Aug, [facility] [address] [id number] [place] [address] Aug, [facility] [address] [facility] [id number] [place] [address] Aug, [facility] [address] [id number] [place] [address] Aug, [facility] [address] [facility] [id number] [place] [address] Aug, [facility] [address] [id number] [place] [address] Aug, [facility] [address] [id number] [place] [address] Jul, [facility] [address] [id number] [place] [address] Jul, [facility] [address] [facility] [id number] [place] [address] Jul, [facility] [address] [id number] [place] [address] Jul, [facility] [address] [id number] [place] [address] Jun, [facility] [address] [id number] [place] [address] Jun, [facility] [address] [facility] [id number] [place] [address] Jun, [facility] [address] [id number] [place] [address] Jun, [facility] [address] [facility] [id number] [place] [address] Jun, [facility] [address] [id number] [place] [address] Jun, [facility] [address] [facility] [id number] [place] [address] May, [facility] [address] [facility] [id number] [place] [address] May, [facility] [address] [id number] [place] [address] May, [facility] [address] [id number] [place] [address] May, [facility] [address] [id number] [place] [address] Apr, [facility] [address] [facility] [id number] [place] [address] Apr, [facility] [address] [id number] [place] [address] March, [facility] [address] [id number] [place] [address] March, [facility] [address] [id number] [place] [address] March, [facility] [address] [facility] [id number] [place] [address] March, [facility] [address] [id number] [place] [address] March, [facility] [address] [id number] [place] [address] March, [facility] [address] [id number] [place] [address] Feb, [facility] [address] [id number] [place] [address] Feb, [facility] [address] [id number] [place] [address] Dec, [facility] [address] [facility] [id number] [place] [address] Dec, [facility] [id number] [place] [address] Nov, [facility] [address] [id number] [place] [address] Nov, [facility] [id number] [place] [address] Sep, [facility] [address] [id number] [place] [address] Sep, [facility] [id number] [place] [address] Sep, [facility] [address] [id number] [place] [address] Sep, [facility] [id number] [place] [address] Sep, [facility] [address] [id number] [place] [address] Sep, [facility] [id number] [place] [address] Sep, [facility] [address] [id number] [place] [address] Aug, [facility] [address] [id number] [place] [address] Aug, [facility] [address] [facility] [id number] [place] [address] Aug, [facility] [id number] [place] [address] Aug, [facility] [address] [id number] [place] [address] Aug, [facility] [address] [id number] [place] [address] Aug, [facility] [address] [facility] [id number] [place] [address] Jul, [facility] [address] [id number] [place] [address] Jul, [facility] [address] [facility] [id number] [place] [address] Jul, [facility] [address] [facility] [id number] [place] [address] Jul, [facility] [address] [id number] [place] [address] Jun, [facility] [address] [id number] [place] [address] Jun, [facility] [address] [id number] [place] [address] Jun, [facility] [address] [facility] [id number] [place] [address] Jun, [facility] [address] [id number] [place] [address] Jun, [facility] [address] [id number] [place] [address] Jun, [facility] [address] [id number] [place] [address] Jun, [facility] [address] [facility] [id number] [place] [address] May, [facility] [address] [id number] [place] [address] May, [facility] [address] [facility] [id number] [place] [address] May, [facility] [address] [id number] [place] [address] May, [facility] [address] [facility] [id number] [place] [address] 13 May, 2013 [facility] [address] [facility] [id number] [place] [address] 05 May, 2013 [facility] [address] [id number] [place] [address] 03 May, 2013 [facility] [address] [id number] [place] [address] 28 Apr, 2013 [facility] [address] [facility] [id number] [place] [address] 27 Apr, 2013 [facility] [address] [id number] [place] [address] 27 Apr, 2013 [facility] [address] [id number] [place] [address] 26 Apr, 2013 [facility] [address] [id number] [place] [address] 20 Apr, 2013 [facility] [address] [id number] [place] [address] 18 Apr, 2013 [facility] [address] [id number] [place] [address] 18 Apr, 2013 [facility] [address] [id number] [place] [address] 18 Apr, 2013 [facility] [address] [facility] [id number] [place] [address] 17 Apr, 2013 [facility] [address] [facility] [id number] [place] [address] 14 Apr, 2013 [facility] [address] [facility] [id number] [place] [address] 14 Apr, 2013 [facility] [address] [id number] [place] [address] 11 Apr, 2013 [facility] [address] [id number] [place] [address] 10 Apr, 2013 [facility] [address] [id number] [place] [address] 09 Apr, 2013 [facility] [address] [id number] [place] [address] Apr, [facility] [address] [id number] [place] [address] Apr, [facility] [address] [id number] [place] [address] Apr, [facility] [address] [id number] [place] [address] Apr, [facility] [address] [facility] [id number] [place] [address] Apr, [facility] [address] [id number] [place] [address] March, [facility] [address] [id number] [place] [address] March, [facility] [address] [id number] [place] [address] March, [facility] [address] [id number] [place] [address] March, [facility] [address] [id number] [place] [address] March, [facility] [address] [id number] [place] [address] March, [facility] [address] [id number] [place] [address] March, [facility] [address] [id number] [place] [address] Feb, [facility] [address] [id number] [place] [address] Feb, [facility] [address] [id number] [place] [address] Jan, [facility] [address] [id number] [place] [address] Jan, [facility] [address] [id number] [place] [address] 15 Jan, 2013 [facility] [address] [facility] [id number] [place] [address] 14 Jan, 2013 [facility] [address] [id number] [place] [address] 13 Jan, 2013 [facility] [address] [id number] [place] [address] 12 Jan, 2013 [facility] [address] [id number] [place] [address] 11 Jan, 2013 [facility] [address] [id number] [place] [address] 09 Jan, 2013 [facility] [address] [id number] [place] [address] 08 Jan, 2013 [facility] [address] [id number] [place] [address] 07 Jan, 2013 [facility] [address] [id number] [place] [address] 06 Jan, 2013 [facility] [address] [id number] [place] [address] 17 Nov, 2012 [facility] [address] [id number] [place] [address] Oct, [facility] [address] [id number] [place] [address] Oct, [facility] [address] [id number] [place] [address] Oct, [facility] [address] [id number] [place] [address] Oct, [facility] [address] [id number] [place] [address] Sep, [facility] [address] [id number] [place] [address] Sep, [facility] [address] [id number] [place] [address] Sep, [facility] [address] [id number] [place] [address] 16 Sep, 2012 [facility] [address] [id number] [place] [address] Sep, [facility] [address] [id number] [place] [address] Sep, [facility] [address] [id number] [place] [address] Sep, [facility] [address] [id number] [place] [address] Sep, [facility] [address] [id number] [place] [address] Sep, [facility] [address] [id number] [place] [address] Sep, [facility] [address] [id number] [place] [address] Sep, [facility] [address] [id number] [place] [address] Aug, [facility] [address] [id number] [place] [address] Aug, [facility] [address] [id number] [place] [address] Aug, [facility] [address] [id number] [place] [address] 28 Jul, 2012 [facility] [address] [id number] [place] [address] 25 Jul, 2012 [facility] [address] [id number] [place] [address] 19 Jul, 2012 [facility] [id number] [place] [address] 17 Jul, 2012 [facility] [address] [id number] [place] [address] Jun, [facility] [address] [id number] [place] [address] Jun, [facility] [address] [id number] [place] [address] 15 Jun, 2012 [facility] [address] [facility] [id number] [place] [address] 15 Jun, 2012 [facility] [address] [id number] [place] [address] 13 Jun, 2012 [facility] [address] [id number] [place] [address] March, [facility] [address] [facility] [id number] [place] [address] 04 Feb, 2012 [facility] [address] [id number] [place] [address] 28 Jan, 2012 [facility] [address] [id number] [place] [address] Jan, [facility] [address] [id number] [place] [address] 22 Jan, 2012 [facility] [address] [id number] [place] [address] 14 Jan, 2012 [facility] [address] [id number] [place] [address] 14 Jan, 2012 [facility] [address] [id number] [place] [address] 14 Jan, 2012 [facility] [address] [id number] [place] [address] 28 Dec, 2011 [facility] [address] [id number] [place] [address] 27 Dec, 2011 [facility] [address] [id number] [place] [address] 23 Dec, 2011 [facility] [address] [id number] [place] [address] 21 Dec, 2011 [facility] [address] [id number] [place] [address] 20 Dec, 2011 [facility] [id number] [place] [address] 19 Dec, 2011 [facility] [id number] [place] [address] 17 Dec, 2011 [facility] [id number] [place] [address] 16 Dec, 2011 [facility] [id number] [place] [address] Nov, [facility] [address] [address] Oct, [facility] [address] [address] Sep, [facility] [address] [address] Sep, [facility] [address] [address] Sep, [facility] [address] [address] Sep, [facility] [address] [address] Sep, [facility] [address] [address] Sep, [facility] [id number] [place] [address] Jan, [facility] [address] [address] Apr, IMMUNIZATIONS No Known Immunizations SOCIAL HISTORY Never Assessed REASON FOR VISIT PLAN OF CARE VITAL SIGNS Height 66 in 2013-09-26 Weight 116.12 lbs 2013-09-26 Heart Rate 78 bpm 2013-09-26 Blood pressure systolic 128 mmHg 2013-09-26 Blood pressure diastolic 70 mmHg 2013-09-26 MEDICATIONS No Known Medications RESULTS No Results [...] History Left ovary removed 12/2017 Hospitalization History [facility] Admission x4 2009 most rec ent admission Hospitalization History [facility] overdose 2010 Hospitalization History child 11/29/2016 Hospitalization History [facility] 02/2019
--- OUTSIDE RECORDS SUMMARY | 2020-02-10 18:01 | XMS REPORT ---
Author Author Sonia Schroeder Organization [facility] Address [address] [place] [address] Care Team Providers Care Industrial Maintenance Tech Name Role Phone ELIAS Schroeder Unavailable PROBLEMS Type Condition ICD9-CM Code HTE55-CC Code Onset Dates Condition S tatus SNOMED Code Problem Generalized anxiety disorder F41.1 A ctive 82442568 Problem Bipolar disorder, current episode mixed, moderate F31.62 Active 591112211 Problem Post traumatic stress disorder F43.10 Active 19806073 Problem Constipation K59.00 Active 8744506 8 Problem Other chronic pain G89.29 Active 8 8681253 Problem Borderline personality disorder F60.3 Active 75516655 Problem Endometriosis N80.9 Active 443030 003 Problem Acute right-sided low back pain with right-sided sciatica M54.41 Active 956124369 Problem Acute non intractable tension-type headache G44.20 9 Active [id number] ALLERGIES No Information ENCOUNTERS Encounter Location Date Diagnosis [facility] [address] [place] [id number] [address] [place] [address] Dec, Periumbilical abdominal pain R10.33 and Dehydration E86.0 [facility] [address] [place], [place] [id number] [address] [place] [address] Dec, Influenza B J10.1 [facility] [address] [place], [place] [id number] [address] [place] [address] Oct, Facial pain R51 and Concussi on with loss of consciousness, subsequent encounter S06.0X9D [facility] [address] [place], [place] [id number] [address] [place] [address] Oct, Non-recurrent acute suppurat dmitry otitis media of both ears without spontaneous rupture of tympanic membranes H66.003 [facility] [address] [address] Sep, Viral upper respiratory illn ess J06.9 and Fever R50.9 [facility] [address] [address] Jul, Tongue lesion K14.8 [facility] [address] [address] May, Low back pain M54.5 ; Other chronic pain G89.29 ; Lower abdominal pain R10.30 and Otalgia of right ear H92.01 [place] [address] [address] Apr, Bipolar disorder, current episode mixed, moderate F31.62 [place] [address] [address] Apr, Bipolar disorder, current episode mixed, moderate F31.62 ; Post traumatic stress disorder F43.10 and Borderline personality disorder F60.3 [place] [address] [address] March, Bipolar disorder, current episode mixed, moderate F31.62 [place] [address] [address] March, Bipolar disorder, current episode mixed, moderate F31.62 [facility] [place] [address] [address] March, Bronchitis J40 [place] [address] [address] Feb, Bipolar disorder, current episode mixed, moderate F31.62 ; Post traumatic stress disorder F43.10 ; Borderline personality disorder F60.3 and 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 Z79.899 [place] [address] [address] 24 Feb, 2019 Pelvic floor dysfunction M62.89 [place] [address] [address] Feb, Bipolar disorder, current episode mixed, moderate F31.62 [facility] [address] [address] Jan, Dehydration E86.0 and Back m uscle spasm M62.830 [place] [address] [address] Jan, Bipolar disorder, current episode mixed, moderate F31.62 ; Post traumatic stress disorder F43.10 ; Borderline personality disorder F60.3 and 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 Z79.899 [facility] [address] [address] Jan, Cough R05 and Viral upper re spiratory tract infection J06.9 [place] [address] [address] Jan, Bipolar disorder, current episode mixed, moderate F31.62 [place] [address] [address] Dec, Bipolar disorder, current episode mixed, moderate F31.62 [place] [address] [address] Nov, Bipolar disorder, current episode mixed, moderate F31.62 [facility] [place] [address] [address] Oct, Sore throat J02.9 [facility] [address] [address] Oct, Abdominal pain R10.9 ; Low b ack pain M54.5 ; Left shoulder pain M25.512 and Constipation K59.00 [place] [address] [address] Oct, Bipolar disorder, current episode mixed, moderate F31.62 ; Post traumatic stress disorder F43.10 and Borderline personality disorder F60.3 [place] [address] [address] Sep, Bipolar disorder, current episode mixed, moderate F31.62 [place] [address] [address] 08 Aug, 2018 Bipolar disorder, current episode mixed, moderate F31.62 [place] [address] [address] Jul, Thrombophlebitis I80.9 and Pelvic pain R 10.2 [place] [address] [address] 05 Jul, 2018 Bipolar disorder, current episode mixed, moderate F31.62 ; Post traumatic stress disorder F43.10 and Borderline personality disorder F60.3 [place] [address] [address] Jun, Bipolar disorder, current episode mixed, moderate F31.62 [place] [address] [address] May, Palpitations R00.2 [place] [address] [address] May, Palpitations R00.2 [place] [address] [address] May, Palpitations R00.2 and Frequent bowel mo vements R19.4 [place] [address] [address] May, Bipolar disorder, current episode mixed, moderate F31.62 ; Post traumatic stress disorder F43.10 and Borderline personality disorder F60.3 [facility] [address] [facility] [place] [id number] 15 Apr, 2018 Dental examination Z01.20 [facility] [address] [place] [id number] [address] [place] [address] Apr, [facility] [address] [address] Apr, Dental examination Z01.20 [facility] [address] [place] [id number] [address] [place] [address] 15 Apr, 2018 Tooth pain K08.89 [place] [address] [address] 06 Apr, 2018 Bipolar disorder, current episode mixed, moderate F31.62 ; Post traumatic stress disorder F43.10 and Borderline personality disorder F60.3 [facility] [address] [place] [id number] [address] [place] [address] March, Abdominal pain R10.9 ; UTI s ymptoms R39.9 and Other microscopic hematuria R31.29 [place] [address] [address] March, [place] [address] [address] March, Bipolar disorder, current episode mixed, moderate F31.62 ; Post traumatic stress disorder F43.10 and Borderline personality disorder F60.3 [place] [address] [address] Feb, Encounter for immunization Z23 [place] [address] [address] Feb, Bipolar disorder, current episode mixed, moderate F31.62 ; Post traumatic stress disorder F43.10 and Borderline personality disorder F60.3 [place] [address] [address] Feb, Bipolar disorder, current episode mixed, moderate F31.62 ; Post traumatic stress disorder F43.10 ; Borderline personality disorder F60.3 and Other shelter (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 Z79.899 [place] [address] [address] Jan, Encounter for immunization Z23 [place] [address] [address] Jan, [place] [address] [address] Jan, Bipolar disorder, current episode mixed, moderate F31.62 [facility] [address] [address] Jan, Lumbar back pain M54.5 [place] [address] [place] [address] Dec, Low back pain M54.5 [place] [address] [address] Dec, Bipolar disorder, current episode mixed, moderate F31.62 [place] [address] [address] Dec, Generalized anxiety disorder F41.1 and B ipolar disorder, current episode mixed, moderate F31.62 [facility] [place] [address] [address] Nov, Acute non intractable tensio n-type headache G44.209 [place] [address] [address] Nov, Bipolar disorder, current episode mixed, moderate F31.62 ; Post traumatic stress disorder F43.10 and Borderline personality disorder F60.3 [place] [address] [address] Nov, Bipolar disorder, current episode mixed, moderate F31.62 [facility] [place] [address] [address] Nov, Abdominal pain R10.9 ; Histo ry of PCOS Z87.42 ; History of endometriosis Z87.42 and Pelvic pain R10.2 [place] [address] [address] Nov, [facility] [place] [address] [address] Oct, History of PCOS Z87.42 ; His tory of endometriosis Z87.42 and Pain R52 [place] [address] [address] Oct, Bipolar disorder, current episode mixed, moderate F31.62 ; Post traumatic stress disorder F43.10 and Borderline personality disorder F60.3 [place] [address] [address] Oct, Bipolar disorder, current episode mixed, moderate F31.62 [place] [address] [address] Sep, Bipolar disorder, current episode mixed, moderate F31.62 ; Post traumatic stress disorder F43.10 ; Borderline personality disorder F60.3 and Other shelter (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 Z79.899 [place] [address] [address] Sep, Bipolar disorder, current episode mixed, moderate F31.62 [facility] [address] [place] [id number] [address] [place] [address] Sep, Endometriosis N80.9 and Acut e right-sided low back pain with right-sided sciatica M54.41 [place] [address] [address] Aug, [place] [address] [address] Aug, Bipolar disorder, current episode mixed, moderate F31.62 ; Post traumatic stress disorder F43.10 and Borderline personality disorder F60.3 [place] [address] [address] Aug, Bipolar disorder, current episode mixed, moderate F31.62 ; Post traumatic stress disorder F43.10 and Borderline personality disorder F60.3 [place] [address] [address] 13 Jul, 2017 Bipolar disorder, current episode mixed, moderate F31.62 ; Post traumatic stress disorder F43.10 and Borderline personality disorder F60.3 [facility] [address] [place] [id number] [address] [place] [address] 11 Jul, 2017 Pharyngitis, unspecified peter ology J02.9 and Streptococcal pharyngitis J02.0 [place] [address] [address] Jun, Bipolar disorder, current episode mixed, moderate F31.62 ; Post traumatic stress disorder F43.10 and Borderline personality disorder F60.3 [place] [address] [address] May, [place] [address] [address] May, [place] [address] [address] May, Bipolar disorder, current episode mixed, moderate F31.62 and Generalized anxiety disorder F41.1 [place] [address] [address] March, Bipolar disorder, current episode mixed, moderate F31.62 and Generalized anxiety disorder F41.1 [place] [address] [address] March, Pelvic pain R10.2 [place] [address] [address] March, [place] [address] [address] Feb, Bipolar disorder, current episode mixed, moderate F31.62 and Generalized anxiety disorder F41.1 [place] [address] [address] Jan, [place] [address] [address] Jan, Bipolar disorder, current episode mixed, moderate F31.62 [place] [address] [address] Jan, Bipolar disorder, current episode mixed, moderate F31.62 [place] [address] [address] 24 Mar, 2017 Bilateral low back pain without sciatica M54.5 [facility] [address] [id number] Jan, Dental caries K02.9 and Dental examinati on Z01.20 [facility] [address] [id number] 09 Jan, 2017 Encounter for dental examination and ryne aning without abnormal findings Z01.20 [facility] [address] [place] [address] 06 Jan, 2017 Bipolar disorder, current episode mixed, moderate F31.62 and Generalized anxiety disorder F41.1 [facility] [address] [place] [address] 24 Dec, 2016 [facility] [address] [place] [address] 06 Dec, 2016 Bipolar disorder, current episode mixed, moderate F31.62 and Generalized anxiety disorder F41.1 [place] [address] [place] [id number] 03 Dec, 2016 Other fatigue R53.83 and Orthostatic hyp otension I95.1 [facility] [address] [id number] Nov, Dental examination Z01.20 [facility] [address] [place] [id number] [address] [place] [address] 02 Nov, 2016 Bronchitis J40 [facility] [address] [address] 14 Oct, 2016 Generalized anxiety disorder F41.1 [facility] [address] [address] 14 Sep, 2016 Bipolar disorder, current episode mixed, moderate F31.62 and Generalized anxiety disorder F41.1 [place] [address] [place] [id number] 02 Sep, 2016 Bipolar disorder, current episode mixed, moderate F31.62 and Generalized anxiety disorder F41.1 [facility] [address] [place] [id number] Jul, Upper respiratory tract infe ction, unspecified type J06.9 [place] [address] [address] Jun, Bipolar disorder, current episode mixed, moderate F31.62 and Generalized anxiety disorder F41.1 [place] [address] [address] Apr, [place] [address] [address] Apr, Encounter for test, result pos itive Z32.01 [place] [address] [address] March, [place] [address] [address] March, Bipolar disorder, current episode mixed, moderate F31.62 and Generalized anxiety disorder F41.1 [place] [address] [address] March, Bipolar disorder, current episode mixed, moderate F31.62 and Generalized anxiety disorder F41.1 [place] [address] [address] March, [place] [address] [address] March, [place] [address] [address] Feb, [facility] [address] [address] Feb, [place] [address] [address] Feb, Bipolar disorder, current episode mixed, moderate F31.62 and Generalized anxiety disorder F41.1 [place] [address] [address] Jan, Abdominal pain R10.9 [place] [address] [address] 14 Jan, 2016 [place] [address] [address] 29 Dec, 2015 Dental examination Z01.20 [place] [address] [address] 22 Dec, 2015 Dental examination Z01.20 and Dental car ies K02.9 [place] [address] [address] 15 Dec, 2015 Bipolar disorder, current episode mixed, moderate F31.62 and Generalized anxiety disorder F41.1 [place] [address] [address] 15 Dec, 2015 [place] [address] [address] Nov, Bipolar disorder, current episode mixed, moderate F31.62 ; Generalized anxiety disorder F41.1 and Seizure-like activity R56.9 [place] [address] [address] Oct, [address] [address] Oct, Bipolar disorder, current episode mixed, moderate F31.62 [place] [address] [address] 14 Oct, 2015 Well woman exam Z01.419 [...] Tobacco use Z72.0 and Hot flashes N95.1 [place] [address] [address] Oct, Seizure-like activity R56.9 and Irregula r periods N92.6 [facility] [address] [address] Oct, Bipolar disorder, current episode mixed, moderate F31.62 ; Generalized anxiety disorder F41.1 and Underweight R63.6 [facility] [address] [address] Oct, [facility] [address] [address] Oct, Generalized anxiety disorder F41.1 and U nspecified mood [affective] disorder F39 [facility] [address] [address] Oct, Back pain M54.9 and Anxiety F41.9 [facility] [address] [address] Oct, [facility] [address] [address] Sep, Arm pain, left M79.602 [facility] [address] [address] Sep, [facility] [address] [id number] Sep, Dental examination Z01.20 and Dental car ies K02.9 [facility] [address] [address] Sep, Generalized anxiety disorder F41.1 and U nspecified episodic mood disorder F39 [facility] [address] [address] Sep, Bilateral low back pain without sciatica M54.5 and Seizure-like activity R56.9 [facility] [address] [address] Aug, [facility] [address] [address] Aug, [facility] [address] [place] [id number] [place] [address] Aug, [facility] [address] [address] Aug, Visual changes H53.9 and Bilateral low b ack pain without sciatica M54.5 [facility] [address] [place] [address] [place] [address] Jul, [facility] [address] [address] Jun, Bipolar I disorder, most recent episode (or current) mixed, moderate 296.62 ; Generalized anxiety disorder 300.02 and High risk medication use V58.69 [facility] [address] [address] Jun, [facility] [address] [address] May, [facility] [address] [address] May, Bipolar I disorder, most recent episode (or current) mixed, moderate 296.62 and Generalized anxiety disorder 300.02 [facility] [address] [id number] [place] [id number] May, Dental examination V72.2 [facility] [address] [place] [address] [place] [address] March, Bipolar I disorder, most recent episode (or current) mixed, moderate 296.62 and Generalized anxiety disorder 300.02 [facility] [address] [place] [address] [place] [address] March, [facility] [address] [address] March, [facility] [address] [address] March, Underweight 783.22 ; Hand pain, right 72 9.5 and Reflux gastritis 535.40 [facility] [address] [place] [address] 14 Feb, 2014 [facility] [address] [id number] [place] [address] 13 Feb, 2015 [facility] [address] [id number] [place] [address] 18 Jan, 2015 [facility] [address] [id number] [place] [address] 18 Jan, 2015 [facility] [address] [id number] [place] [address] 16 Jan, 2015 [facility] [address] [id number] [place] [address] 16 Jan, 2015 [facility] [address] [id number] [place] [address] Jan, [facility] [address] [id number] [place] [address] Jan, [facility] [address] [id number] [place] [address] 05 Jan, 2015 [facility] [address] [id number] [place] [address] 05 Jan, 2015 [facility] [address] [id number] [place] [address] Jan, [facility] [address] [id number] [place] [address] Jan, [facility] [address] [id number] [place] [address] Jan, [facility] [address] [id number] [place] [address] Jan, [facility] [address] [id number] [place] [address] Dec, [facility] [address] [id number] [place] [address] Dec, [facility] [address] [id number] [place] [address] Dec, [facility] [address] [id number] [place] [address] Dec, 2014 [facility] [address] [id number] [place] [address] 18 Dec, 2014 [facility] [address] [id number] [place] [address] 17 Dec, 2014 [facility] [address] [id number] [place] [address] 17 Dec, 2014 [facility] [address] [id number] [place] [address] 16 Dec, 2014 [facility] [address] [id number] [place] [address] 16 Dec, 2014 [facility] [address] [id number] [place] [address] 05 Dec, 2014 [facility] [address] [id number] [place] [address] 05 Dec, 2014 [facility] [address] [id number] [place] [address] 05 Dec, 2014 [facility] [address] [id number] [place] [address] 05 Dec, 2014 [facility] [address] [id number] [place] [address] 04 Dec, 2014 [facility] [address] [id number] [place] [address] 04 Dec, 2014 [facility] [address] [id number] [place] [address] 04 Dec, 2014 [facility] [address] [id number] [place] [address] 04 Dec, 2014 [facility] [address] [id number] [place] [address] 03 Dec, 2014 [facility] [address] [id number] [place] [address] Dec2014 [facility] [address] [id number] [place] [address] Nov, [facility] [address] [id number] [place] [address] Nov, [facility] [address] [id number] [place] [address] Nov, [facility] [address] [id number] [place] [address] Nov, [facility] [address] [id number] [place] [address] Nov, [facility] [address] [id number] [place] [address] Nov, [facility] [address] [id number] [place] [id number] Nov, [facility] [address] [id number] [place] [address] Nov, [facility] [address] [id number] [place] [address] Nov, [facility] [id number] [place] [id number] Nov, [facility] [address] [id number] [place] [address] Nov, [facility] [address] [id number] [place] [address] Nov, [facility] [address] [id number] [place] [address] Oct, [facility] [address] [id number] [place] [address] Oct, [facility] [address] [id number] [place] [address] Oct, [facility] [address] [id number] [place] [address] Oct, [facility] [address] [id number] [place] [address] Oct, [facility] [address] [id number] [place] [address] Oct, [facility] [address] [id number] [place] [address] Oct, [facility] [address] [facility] [id number] [place] [address] Oct, [facility] [place] [facility] [address] [id number] [place] [address] Oct, [facility] [place] [facility] [address] [id number] [place] [address] Oct, [facility] [place] [facility] [address] [id number] [place] [address] Oct, [facility] [place] [facility] [address] [id number] [place] [address] Oct, [facility] [place] [facility] [address] [id number] [place] [address] Sep, [facility] [place] [facility] [address] [id number] [place] [address] Sep, [facility] [place] [facility] [address] [id number] [place] [address] Sep, [facility] [place] [facility] [address] [id number] [place] [address] Sep, [facility] [place] [facility] [address] [id number] [place] [address] Sep, [facility] [place] [facility] [address] [id number] [place] [address] Sep, [facility] [place] [facility] [address] [id number] [place] [address] Sep, [facility] [place] [facility] [address] [id number] [place] [address] Sep, [facility] [place] [facility] [address] [id number] [place] [address] Aug, [facility] [place] [facility] [address] [id number] [place] [address] Aug, [facility] [place] [facility] [address] [facility] [id number] [place] [address] Aug, [facility] [place] [facility] [address] [facility] [id number] [place] [address] Aug, [facility] [place] [facility] [address] [id number] [place] [address] Aug, [facility] [place] [facility] [address] [facility] [id number] [place] [address] Aug, [facility] [place] [facility] [address] [facility] [id number] [place] [address] Aug, [facility] [place] [facility] [address] [id number] [place] [address] Aug, [facility] [place] [facility] [address] [id number] [place] [address] Aug, [facility] [place] [facility] [address] [id number] [place] [address] Aug, 2013 [facility] [place] [facility] [address] [facility] [id number] [place] [address] Aug, [facility] [place] [facility] [address] [id number] [place] [address] Aug, [facility] [place] [facility] [address] [id number] [place] [address] Aug, [facility] [place] [facility] [address] [id number] [place] [address] Jul, 2013 [facility] [place] [facility] [address] [facility] [id number] [place] [address] Jul, 2013 [facility] [place] [facility] [address] [id number] [place] [address] Jul, 2013 [facility] [place] [facility] [address] [id number] [place] [address] Jul, 2013 [facility] [place] [facility] [address] [id number] [place] [address] Jun, [facility] [place] [facility] [address] [id number] [facility] [address] Jun, [facility] [place] [facility] [address] [id number] [facility] [address] Jun, [facility] [place] [facility] [address] [facility] [id number] [place] [address] Jun, [facility] [place] [facility] [address] [id number] [place] [address] Jun, [facility] [place] [facility] [address] [facility] [id number] [place] [address] Jun, [facility] [place] [facility] [address] [facility] [id number] [place] [address] May, [facility] [place] [facility] [address] [id number] [place] [address] May, [facility] [place] [facility] [address] [id number] [place] [address] May, [facility] [place] [facility] [address] [id number] [place] [address] May, [facility] [place] [facility] [address] [facility] [id number] [place] [address] Apr, [facility] [place] [facility] [address] [id number] [place] [address] Apr, [facility] [place] [facility] [address] [id number] [place] [address] March, [facility] [place] [facility] [address] [id number] [place] [address] March, [facility] [place] [facility] [address] [facility] [id number] [place] [address] March, [facility] [place] [facility] [address] [id number] [place] [address] March, [facility] [place] [facility] [address] [id number] [place] [address] March, [facility] [place] [facility] [address] [id number] [place] [address] March, [facility] [place] [facility] [address] [id number] [place] [address] Feb, [facility] [place] [facility] [id number] [place] [address] Feb, [facility] [place] [facility] [address] [id number] [place] [address] Dec, [facility] [place] [facility] [id number] [place] [address] Dec, [facility] [place] [facility] [address] [id number] [place] [address] Nov, [facility] [place] [facility] [id number] [place] [address] Nov, [facility] [place] [facility] [id number] [place] [address] Sep, [facility] [place] [facility] [id number] [place] [address] Sep, [facility] [place] [facility] [id number] [place] [address] Sep, [facility] [place] [facility] [id number] [place] [address] Sep, [facility] [place] [facility] [id number] [place] [address] Sep, [facility] [place] [facility] [id number] [place] [address] Sep, [facility] [place] [facility] [id number] [place] [address] Sep, [facility] [place] [facility] [id number] [place] [address] Aug, [facility] [place] [facility] [id number] [place] [address] Aug, [facility] [place] [facility] [id number] [place] [address] Aug, [facility] [place] [facility] [address] [id number] [place] [address] Aug, [facility] [place] [facility] [address] [id number] [facility] [address] Aug, [facility] [place] [facility] [address] [facility] [id number] [place] [address] Aug, [facility] [place] [facility] [address] [id number] [place] [address] Jul, [facility] [place] [facility] [address] [facility] [id number] [place] [address] Jul, [facility] [place] [facility] [address] [facility] [id number] [place] [address] Jul, [facility] [place] [facility] [address] [id number] [place] [address] Jul, [facility] [place] [facility] [address] [id number] [place] [address] Jun, [facility] [place] [facility] [address] [id number] [place] [address] Jun, [facility] [place] [facility] [address] [facility] [id number] [place] [address] Jun, [facility] [place] [facility] [address] [id number] [place] [address] Jun, [facility] [place] [facility] [address] [id number] [place] [address] Jun, [facility] [place] [facility] [address] [id number] [place] [address] Jun, [facility] [place] [facility] [address] [facility] [id number] [place] [address] Jun, [facility] [place] [facility] [address] [id number] [place] [address] May, [facility] [place] [facility] [address] [facility] [id number] [place] [address] May, [facility] [place] [facility] [address] [id number] [place] [address] May, [facility] [place] [facility] [address] [facility] [id number] [place] [address] 15 May, 2013 [facility] [place] [facility] [address] [facility] [id number] [place] [address] 13 May, 2013 [facility] [place] [facility] [address] [facility] [id number] [place] [address] 05 May, 2013 [facility] [place] [facility] [address] [id number] [place] [address] 03 May, 2013 [facility] [place] [facility] [address] [facility] [id number] [place] [address] 28 Apr, 2013 [facility] [place] [facility] [address] [id number] [place] [address] 27 Apr, 2013 [facility] [place] [facility] [address] [id number] [place] [address] 27 Apr, 2013 [facility] [place] [facility] [address] [id number] [place] [address] 26 Apr, 2013 [facility] [place] [facility] [address] [id number] [place] [address] 20 Apr, 2013 [facility] [place] [facility] [address] [id number] [place] [address] 18 Apr, 2013 [facility] [place] [facility] [address] [id number] [place] [address] 18 Apr, 2013 [facility] [place] [facility] [address] [id number] [place] [address] 18 Apr, 2013 [facility] [place] [facility] [address] [id number] [place] [address] 17 Apr, 2013 [facility] [place] [facility] [address] [facility] [id number] [place] [address] 14 Apr, 2013 [facility] [place] [facility] [address] [id number] [place] [address] 14 Apr, 2013 [facility] [place] [facility] [address] [id number] [place] [address] 11 Apr, 2013 [facility] [place] [facility] [address] [id number] [place] [address] Apr, [facility] [place] [facility] [address] [id number] [place] [address] Apr, [facility] [place] [facility] [address] [id number] [place] [address] Apr, [facility] [place] [facility] [address] [id number] [place] [address] Apr, [facility] [place] [facility] [address] [id number] [place] [address] Apr, [facility] [place] [facility] [address] [id number] [place] [address] Apr, [facility] [place] [facility] [address] [id number] [place] [address] Apr, [facility] [place] [facility] [address] [id number] [place] [address] March, [facility] [place] [facility] [address] [id number] [place] [address] March, [facility] [place] [facility] [address] [id number] [place] [address] March, [facility] [place] [facility] [address] [id number] [place] [address] March, [facility] [place] [facility] [address] [id number] [place] [address] March, [facility] [place] [facility] [address] [id number] [place] [address] March, [facility] [place] [facility] [address] [id number] [place] [address] March, [facility] [place] [facility] [address] [id number] [place] [address] Feb, [facility] [place] [facility] [address] [id number] [place] [address] Feb, [facility] [place] [facility] [address] [id number] [place] [address] Jan, [facility] [place] [facility] [address] [id number] [place] [address] 18 Jan, 2013 [facility] [place] [facility] [address] [facility] [id number] [facility] [address] 15 Jan, 2013 [facility] [place] [facility] [address] [id number] [place] [address] 14 Jan, 2013 [facility] [place] [facility] [address] [id number] [place] [address] 13 Jan, 2013 [facility] [place] [facility] [address] [id number] [place] [address] 12 Jan, 2013 [facility] [place] [facility] [address] [id number] [place] [address] 11 Jan, 2013 [facility] [place] [facility] [address] [id number] [place] [address] 09 Jan, 2013 [facility] [place] [facility] [address] [id number] [place] [address] 08 Jan, 2013 [facility] [place] [facility] [address] [id number] [place] [address] 07 Jan, 2013 [facility] [place] [facility] [address] [id number] [place] [address] 06 Jan, 2013 [facility] [place] [facility] [address] [id number] [place] [address] 17 Nov, 2012 [facility] [place] [facility] [address] [id number] [place] [address] Oct, [facility] [place] [facility] [address] [id number] [place] [address] Oct, [facility] [place] [facility] [address] [id number] [place] [address] Oct, [facility] [place] [facility] [address] [id number] [place] [address] Oct, [facility] [place] [facility] [address] [id number] [place] [address] Sep, [facility] [place] [facility] [address] [id number] [place] [address] Sep, [facility] [place] [facility] [address] [id number] [place] [address] Sep, [facility] [place] [facility] [address] [id number] [place] [address] Sep, [facility] [place] [facility] [address] [id number] [place] [address] Sep, [facility] [place] [facility] [address] [id number] [place] [address] Sep, [facility] [place] [facility] [address] [id number] [place] [address] Sep, [facility] [place] [facility] [address] [id number] [place] [address] Sep, [facility] [place] [facility] [address] [id number] [place] [address] Sep, [facility] [place] [facility] [address] [id number] [place] [address] Sep, [facility] [place] [facility] [address] [id number] [place] [address] Sep, [facility] [place] [facility] [address] [id number] [place] [address] Aug, [facility] [place] [facility] [address] [id number] [place] [address] Aug, [facility] [place] [facility] [address] [id number] [place] [address] Aug, [facility] [place] [facility] [address] [id number] [place] [address] 28 Jul, 2012 [facility] [place] [facility] [address] [id number] [place] [address] 25 Sep2011 [facility] [place] [facility] [id number] [place] [address] 19 Jul, 2012 [facility] [place] [facility] [address] [id number] [place] [address] 17 Sep2011 [facility] [place] [facility] [address] [id number] [place] [address] Jun, [facility] [place] [facility] [address] [id number] [facility] [address] 16 Jun, 2012 [facility] [place] [facility] [address] [facility] [id number] [place] [address] 15 Jun, 2012 [facility] [place] [facility] [address] [facility] [id number] [facility] [address] 15 Jun, 2012 [facility] [place] [facility] [address] [id number] [facility] [address] 13 Jun, 2012 [facility] [place] [facility] [address] [facility] [id number] [facility] [address] March, [facility] [place] [facility] [address] [id number] [facility] [address] 04 Feb, 2012 [facility] [place] [facility] [address] [id number] [facility] [address] 28 Jan, 2012 [facility] [place] [facility] [address] [id number] [facility] [address] 27 Jan, 2012 [facility] [place] [facility] [address] [id number] [facility] [address] 22 Jan, 2012 [facility] [place] [facility] [address] [id number] [facility] [address] 14 Jan, 2012 [facility] [place] [facility] [address] [id number] [place] [address] 14 Jan, 2012 [facility] [place] [facility] [address] [id number] [place] [address] 14 Jan, 2012 [facility] [place] [facility] [address] [id number] [facility] [address] 28 Dec, 2011 [facility] [place] [facility] [address] [id number] [place] [address] 27 Dec, 2011 [facility] [place] [facility] [address] [id number] [place] [address] 23 Dec, 2011 [facility] [place] [facility] [address] [id number] [place] [address] 21 Dec, 2011 [facility] [place] [facility] [address] [id number] [place] [address] 20 Dec, 2011 [facility] [address] [id number] [place] [address] Dec, [facility] [id number] [place] [address] Dec, [facility] [id number] [place] [address] Dec, [facility] [id number] [place] [address] Nov, [facility] [id number] [place] [address] Oct, [facility] [id number] [place] [address] Sep, [facility] [id number] [place] [address] Sep, [facility] [id number] [place] [address] Sep, [facility] [id number] [place] [address] Sep, [facility] [id number] [place] [address] 07 Sep, 2011 [facility] [id number] [place] [address] 04 Sep, 2011 [facility] [id number] [place] [address] 14 Jan, 2011 [facility] [id number] [place] [address] Apr, IMMUNIZATIONS No Known Immunizations SOCIAL HISTORY Never Assessed REASON FOR VISIT PLAN OF CARE VITAL SIGNS Height 66 in 2013-04-29 Weight 122 lbs 2013-04-29 Temperature 98 degrees Fahrenheit 2013-04-29 Heart Rate 88 bpm 2013-04-29 Respiratory Rate 18 2013-04-29 Blood pressure systolic 115 mmHg 2013-04-29 Blood pressure diastolic 60 mmHg 2013-04-29 MEDICATIONS No Known Medications RESULTS No Results [...] History Left ovary removed 12/2017 Hospitalization History [facility] Admission x4 2009 most rec ent admission Hospitalization History [facility]; overdose 2010 Hospitalization History child 11/29/2016 Hospitalization History [facility] 02/2019
--- OUTSIDE RECORDS SUMMARY | 2020-02-10 18:20 | XMS REPORT | Continuity of Care Document ---
Author Organization Unknown Address Unknown Phone Unavailable Allergies Active Description Code Type Severity Reaction Onset Reported/Identified Relationship to Patient Clinical Status Yes DICLOFENAC-MISOPROSTOL UNKNOWN UNKNOWN Yes PENICILLINS UNKNOWN UNKNOWN Yes Penicillins Drug Allergy N/A N/A 12/17/2009 Yes Penicillins Drug Allergy 12/17/2009 Yes diclofenac sodium 75 mg Tablet, Delayed Release (E.C.) Drug Allergy N/A N/A 12/29/2011 Yes diclofenac sodium 75 mg Tablet, Delayed Release (E.C.) Drug Allergy 12/29 Yes thioridazine 25 mg tablet Drug Allergy N/A N/A 05/09/2013 Yes Penicillins [id number] Drug Aller gy Mild PT ABLE TO TAKE 03/26/2014 Yes Depakote 250 mg tablet,delayed release ( DR/EC) Drug Allergy N/A N/A 03/2015 Yes diclofenac [id number] Drug Allerg y Unknown N/A 01/21/2015 Yes divalproex sodium [id number] Drug Allergy Unknown N/A 08/26/2015 Medications Medication Packaging Start Date St op Date Route Dosage Sig ACETAMINOPHEN TAB 500 MG (TYLENOL) MG 02/02/2020 02/02/2020 PRN ONCE LORAZEPAM 1CC VIAL INJ 2 MG/CC (ATIVAN VIA L) MG 02/02/2020 02/02/2020 ONCE&1239 NORMAL SALINE 1000CC IV BAG INJ 0.9 % (NS 1000CC IV BAG) ml 02/02/2020 02/02/2020 ONCE&1239 Problems Date Dx Coded Attending Type Code Diagnosis Diagnosed By GERBER JONES, JENNIFER Altamirano Ot R10.2 PELVIC AND PERINEAL PAIN 06/20/2008 WOLF JAMA MD 296.9 0 Mood Disorder 06/20/2008 WOLF JAMA MD 296.9 0 Mood Disorder 06/20/2008 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 06/20/2008 NICOLA MANUEL DO 296.90 Mood Disorder 06/20/2008 JASON SOLANO DO F 296 .90 Mood Disorder 06/20/2008 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 06/20/2008 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 06/20/2008 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 06/20/2008 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 06/20/2008 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 06/20/2008 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 06/20/2008 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 06/20/2008 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 06/20/2008 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 06/20/2008 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 06/20/2008 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 06/20/2008 MANUEL DO NICOLA K 296.90 Mood Disorder 06/20/2008 JASNO HUNTER APRN 296.90 Mood Disorder 06/20/2008 WOLF JAMA MD 296.9 0 Mood Disorder 06/20/2008 MANUEL DO NICOLA K 296.90 Mood Disorder 06/20/2008 IDALIA BAKER, KELY J 296.90 Mood Disorder 06/20/2008 JASON HUNTER APRN 296.90 Mood Disorder 06/20/2008 JASON HUNTER APRN D 296.90 Mood Disorder 06/20/2008 JASON HUNTER APRN 296.90 Mood Disorder 06/20/2008 WOLF JAMA MD 296.9 0 Mood Disorder 06/20/2008 ROEL QUARTER SUPERVISOR, GODWIN 296 .90 Mood Disorder 06/20/2008 MADL QUARTER SUPERVISOR, FLO L 296 .90 Mood Disorder 06/20/2008 ROEL QUARTER SUPERVISOR, GODWIN 296 .90 Mood Disorder 06/20/2008 MADL QUARTER SUPERVISOR, FLO L 296 .90 Mood Disorder 06/20/2008 ROEL QUARTER SUPERVISOR, GODWIN 296 .90 Mood Disorder 06/20/2008 ROEL QUARTER SUPERVISOR, GODWIN 296 .90 Mood Disorder 06/20/2008 MADL QUARTER SUPERVISOR, FLO L 296 .90 Mood Disorder 06/20/2008 MADL QUARTER SUPERVISOR, FLO L 296 .90 Mood Disorder 06/20/2008 ROEL QUARTER SUPERVISOR, GODWIN 296 .90 Mood Disorder 06/20/2008 ELIAS DENNIS APRN A 296.90 Mood Disorder 06/20/2008 [facility], DMEOND R 296.90 Mood Disorder 06/20/2008 LISA QUARTER SUPERVISOR, FLO Alfred 296 .90 Mood Disorder 06/20/2008 JOSE SILVERIO DDS 296.90 Mood Disorder 06/20/2008 [facility], DEMOND R 296.90 Mood Disorder 06/20/2008 [facility], DEMOND R 296.90 Mood Disorder 06/20/2008 ROEL QUARTER SUPERVISOR, GODWIN 296 .90 Mood Disorder 06/20/2008 NICOLA MANUEL DO K 296.90 Mood Disorder 06/20/2008 ROEL QUARTER SUPERVISOR, GODWIN 296 .90 Mood Disorder 06/20/2008 ROEL QUARTER SUPERVISOR, GODWIN 296 .90 Mood Disorder 10/03/2008 WOLF JAMA MD 465.9 Upper Respiratory Infection 10/03/2008 WOLF JAMA MD 465.9 Upper Respiratory Infection 10/03/2008 465.9 Uppe r Respiratory Infection 10/03/2008 NICOLA MANUEL DO 465.9 Upper Respiratory Infection 10/03/2008 JASON SOLANO [...] 10/03/2008 465.9 Uppe r Respiratory Infection 10/03/2008 NICOLA MANUEL DO 465.9 Upper Respiratory Infection 10/03/2008 JASON HUNTER APRN 465.9 Upper Respiratory Infection 10/03/2008 WOLF JAMA MD 465.9 Upper Respiratory Infection 10/03/2008 NICOLA MANUEL DO 465.9 Upper Respiratory Infection 10/03/2008 KELY FRIEDMAN DDS 46 5.9 Upper Respiratory Infection 10/03/2008 JASON HUNTER APRN 465.9 Upper Respiratory Infection 10/03/2008 GARTON QUARTER SUPERVISOR, JASON D 465.9 Upper Respiratory Infection 10/03/2008 BRIANMYRA QUARTER SUPERVISORKEITH KirkpatrickTH D 465.9 Upper Respiratory Infection 10/03/2008 EVITA JONES, WOLF 465.9 Upper Respiratory Infection 10/03/2008 ROEL QUARTER SUPERVISOR, GODWIN 465 .9 Upper Respiratory Infection 10/03/2008 MADL QUARTER SUPERVISOR, FLO L 465 .9 Upper Respiratory Infection 10/03/2008 ROEL QUARTER SUPERVISOR, GODWIN 465 .9 Upper Respiratory Infection 10/03/2008 MADL QUARTER SUPERVISOR, FLO L 465 .9 Upper Respiratory Infection 10/03/2008 ROEL QUARTER SUPERVISOR, GODWIN 465 .9 Upper Respiratory Infection 10/03/2008 ROEL QUARTER SUPERVISOR, GODWIN 465 .9 Upper Respiratory Infection 10/03/2008 MADL QUARTER SUPERVISOR, FLO L 465 .9 Upper Respiratory Infection 10/03/2008 MADL QUARTER SUPERVISOR, FLO L 465 .9 Upper Respiratory Infection 10/03/2008 ROEL QUARTER SUPERVISOR, GODWIN 465 .9 Upper Respiratory Infection 10/03/2008 SONNY QUARTER SUPERVISOR, ELIAS A 46 5.9 Upper Respiratory Infection 10/03/2008 [facility], DEMOND R 465.9 Upper Respiratory Infection 10/03/2008 MADL QUARTER SUPERVISOR, FLO L 465 .9 Upper Respiratory Infection 10/03/2008 NUSRAT JENKINSS, JOSE 46 5.9 Upper Respiratory Infection 10/03/2008 [facility], DEMOND R 465.9 Upper Respiratory Infection 10/03/2008 [facility], DEMOND R 465.9 Upper Respiratory Infection 10/03/2008 ROEL QUARTER SUPERVISOR, GODWIN 465 .9 Upper Respiratory Infection 10/03/2008 NICOLA MANUEL DO 465.9 Upper Respiratory Infection 10/03/2008 ROEL QUARTER SUPERVISOR, GODWIN 465 .9 Upper Respiratory Infection 10/03/2008 ROEL QUARTER SUPERVISOR, GODWIN 465 .9 Upper Respiratory Infection 11/27/2008 [...] Medication High Risk 11/27/2008 EVITA JONES, WOLF V58.6 9 Medication High Risk 11/27/2008 NICOLA MANUEL DO V58.69 Medication High Risk 11/27/2008 IDALIA BAKER, KELY Dickens V58.69 Medication High Risk 11/27/2008 JASON HUNTER APRN V58.69 Medication High Risk 11/27/2008 JASON HUNTER APRN V58.69 Medication High Risk 11/27/2008 JASON HUNTER APRN V58.69 Medication High Risk 11/27/2008 EVITA JONES, WOLF V58.6 9 Medication High Risk 11/27/2008 ROEL QUARTER SUPERVISOR, GODWIN V58 .69 Medication High Risk 11/27/2008 MADL QUARTER SUPERVISOR, FLO L V58 .69 Medication High Risk 11/27/2008 ROEL QUARTER SUPERVISOR, GODWIN V58 .69 Medication High Risk 11/27/2008 MADL QUARTER SUPERVISOR, FLO L V58 .69 Medication High Risk 11/27/2008 ROEL QUARTER SUPERVISOR, GODWIN V58 .69 Medication High Risk 11/27/2008 ROEL QUARTER SUPERVISOR, GODWIN V58 .69 Medication High Risk 11/27/2008 MADL QUARTER SUPERVISOR, FLO L V58 .69 Medication High Risk 11/27/2008 MADL QUARTER SUPERVISOR, FLO L V58 .69 Medication High Risk 11/27/2008 ROEL QUARTER SUPERVISOR, GODWIN V58 .69 Medication High Risk 11/27/2008 SONNY QUARTER SUPERVISORELIAS A V58.69 Medication High Risk 11/27/2008 [facility], DEMOND R V58.69 Medication High Risk 11/27/2008 LISA QUARTER SUPERVISORFLO V58 .69 Medication High Risk 11/27/2008 NUSRAT DDS, JOSE V58.69 Medication High Risk 11/27/2008 [facility], DEMOND R V58.69 Medication High Risk 11/27/2008 [facility], DEMOND R V58.69 Medication High Risk 11/27/2008 ROEL QUARTER SUPERVISOR, GODWIN V58 .69 Medication High Risk 11/27/2008 NICOLA MANUEL DO K V58.69 Medication High Risk 11/27/2008 ROEL QUARTER SUPERVISOR, GODWIN V58 .69 Medication High Risk 11/27/2008 ROEL QUARTER SUPERVISOR, GODWIN V58 .69 Medication High Risk 07/01/2009 [...] DOA K 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 07/01/2009 JASON SOLANO DO F 296 .32 MO DEPRESSIVE RECURRENT MODERATE 07/01/2009 JASON SOLAON DO 300 .00 AN ANXIETY UNSPEC 07/01/2009 JASON SOLANO DO F 301 .83 Pd Borderline 07/01/2009 296.32 MO [...] JAMA MD 301.8 3 Pd Borderline 07/01/2009 MANUEL DO, NICOLA K 296.32 MO DEPRESSIVE RECURRENT MODERATE 07/01/2009 MANUEL DOMARALA K 300.00 AN ANXIETY UNSPEC 07/01/2009 MANUEL DO, NICOLA K 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 07/01/2009 WHITE DDSKELY J 296.32 MO DEPRESSIVE RECURRENT MODERATE 07/01/2009 [...] JAMA MD 301.8 3 Pd Borderline 07/01/2009 GODWIN SEVILLA APRN 296 .32 MO DEPRESSIVE RECURRENT MODERATE 07/01/2009 ROEL MENG GODWIN 300 .00 AN ANXIETY UNSPEC 07/01/2009 ROELSAM MENG GODWIN 301 .83 Pd Borderline 07/01/2009 LISA MENG, FLO L 296 .32 MO DEPRESSIVE RECURRENT MODERATE 07/01/2009 MADTima MENG, FLO L 300 .00 AN ANXIETY UNSPEC 07/01/2009 MADL TAQUERIA, FLO L 301 .83 Pd Borderline 07/01/2009 ROEL MENG GODWIN 296 .32 MO DEPRESSIVE RECURRENT MODERATE 07/01/2009 ROEL MENG GODWIN 300 .00 AN ANXIETY UNSPEC 07/01/2009 ROEL QUARTER SUPERVISOR, GODWIN 301 .83 Pd Borderline 07/01/2009 MADL QUARTER SUPERVISOR, FLO L 296 .32 MO DEPRESSIVE RECURRENT MODERATE 07/01/2009 MADL QUARTER SUPERVISOR, FLO L 300 .00 AN ANXIETY UNSPEC 07/01/2009 MADL QUARTER SUPERVISOR, FLO L 301 .83 Pd Borderline 07/01/2009 ROEL QUARTER SUPERVISOR, GODWIN 296 .32 MO DEPRESSIVE RECURRENT MODERATE 07/01/2009 ROLE QUARTER SUPERVISOR, GODWIN 300 .00 AN ANXIETY UNSPEC 07/01/2009 ROEL QUARTER SUPERVISOR, GODWIN 301 .83 Pd Borderline 07/01/2009 ROEL QUARTER SUPERVISOR, GODWIN 296 .32 MO DEPRESSIVE RECURRENT MODERATE 07/01/2009 ROEL QUARTER SUPERVISOR, GODWIN 300 .00 AN ANXIETY UNSPEC 07/01/2009 ROEL QUARTER SUPERVISOR, GODWIN 301 .83 Pd Borderline 07/01/2009 MADL QUARTER SUPERVISOR, FLO L 296 .32 MO DEPRESSIVE RECURRENT MODERATE 07/01/2009 MADL QUARTER SUPERVISOR, FLO L 300 .00 AN ANXIETY UNSPEC 07/01/2009 MADL QUARTER SUPERVISOR, FLO L 301 .83 Pd Borderline 07/01/2009 MADL QUARTER SUPERVISOR, FLO L 296 .32 MO DEPRESSIVE RECURRENT MODERATE 07/01/2009 MADL QUARTER SUPERVISOR, FLO L 300 .00 AN ANXIETY UNSPEC 07/01/2009 MADL QUARTER SUPERVISOR, FLO L 301 .83 Pd Borderline 07/01/2009 ROEL QUARTER SUPERVISOR, GODWIN 296 .32 MO DEPRESSIVE RECURRENT MODERATE 07/01/2009 ROEL QUARTER SUPERVISOR, GODWIN 300 .00 AN ANXIETY UNSPEC 07/01/2009 ROEL QUARTER SUPERVISOR, GODWIN 301 .83 Pd Borderline 07/01/2009 SONNY QUARTER SUPERVISOR, ELIAS A 296.32 MO DEPRESSIVE RECURRENT MODERATE 07/01/2009 SONNY QUARTER SUPERVISOR, ELIAS A 300.00 AN ANXIETY UNSPEC 07/01/2009 SONNY QUARTER SUPERVISOR, ELIAS A 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 07/01/2009 [facility], DEMOND R 296.32 MO DEPRESSIVE RECURRENT MODERATE 07/01/2009 [facility], DEMOND R 300.00 AN ANXIETY UNSPEC 07/01/2009 [facility], DEMOND R 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 07/01/2009 MADL QUARTER SUPERVISOR, FLO L 296 .32 MO DEPRESSIVE RECURRENT MODERATE 07/01/2009 MADL QUARTER SUPERVISOR, FLO L 300 .00 AN ANXIETY UNSPEC 07/01/2009 FLO GONZALEZ APRN L 301 .83 Pd Borderline 07/01/2009 NUSRAT DDSJOSE 296.32 MO DEPRESSIVE RECURRENT MODERATE 07/01/2009 SILVERIO DDS, JOSE 300.00 AN ANXIETY UNSPEC 07/01/2009 NUSRAT JENKINSS, JOSE 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 07/01/2009 [facility], DEMOND R 296.32 MO DEPRESSIVE RECURRENT MODERATE 07/01/2009 [facility] 300.00 AN ANXIETY UNSPEC 07/01/2009 [facility], DEMOND R 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 07/01/2009 [facility], DEMOND R 296.32 MO DEPRESSIVE RECURRENT MODERATE 07/01/2009 [facility] 300.00 AN ANXIETY UNSPEC 07/01/2009 [facility] 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 07/01/2009 ROEL QUARTER SUPERVISOR, GODWIN 296 .32 MO DEPRESSIVE RECURRENT MODERATE 07/01/2009 ROEL QUARTER SUPERVISOR, GODWIN 300 .00 AN ANXIETY UNSPEC 07/01/2009 ROEL QUARTER SUPERVISOR, GODWIN 301 .83 Pd Borderline 07/01/2009 NICOLA MANUEL DO K 296.32 MO DEPRESSIVE RECURRENT MODERATE 07/01/2009 NICOLA MANUEL DO K 300.00 AN ANXIETY UNSPEC 07/01/2009 NICOLA MANUEL DO K 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 07/01/2009 ROEL QUARTER SUPERVISOR, GODWIN 296 .32 MO DEPRESSIVE RECURRENT MODERATE 07/01/2009 ROEL QUARTER SUPERVISOR, GODWIN 300 .00 AN ANXIETY UNSPEC 07/01/2009 ROEL QUARTER SUPERVISOR, GODWIN 301 .83 Pd Borderline 07/01/2009 ROEL QUARTER SUPERVISOR, GODWIN 296 .32 MO DEPRESSIVE RECURRENT MODERATE 07/01/2009 ROEL QUARTER SUPERVISOR, GODWIN 300 .00 AN ANXIETY UNSPEC 07/01/2009 ROEL QUARTER SUPERVISOR, GODWIN 301 .83 Pd Borderline 07/16/2009 WOLF JAMA MD 300.0 1 AN PANIC DIS W/O AGORA 07/16/2009 WOLF JAMA MD 300.0 1 AN PANIC DIS W/O AGORA 07/16/2009 300.01 AN PANIC DIS W/O AGORA 07/16/2009 NICOLA MANUEL DO K 300.01 AN PANIC DIS W/O AGORA 07/16/2009 XIOMARA BLANTON, JASON F 300 .01 AN PANIC DIS W/O AGORA [...] 1 AN PANIC DIS W/O AGORA 07/16/2009 NICOLA [...] .01 AN PANIC DIS W/O AGORA 07/16/2009 FLO GONZALEZ APRN 300 .01 AN PANIC DIS W/O AGORA 07/16/2009 GODWIN SEVILLA APRN 300 .01 AN PANIC DIS W/O AGORA 07/16/2009 MADL QUARTER SUPERVISOR, FLO L 300 .01 AN PANIC DIS W/O AGORA 07/16/2009 ROEL QUARTER SUPERVISOR, GODWIN 300 .01 AN PANIC DIS W/O AGORA 07/16/2009 ROEL QUARTER SUPERVISOR, GODWIN 300 .01 AN PANIC DIS W/O AGORA 07/16/2009 MADL QUARTER SUPERVISOR, FLO L 300 .01 AN PANIC DIS W/O AGORA 07/16/2009 MADL QUARTER SUPERVISOR, FLO L 300 .01 AN PANIC DIS W/O AGORA 07/16/2009 ROEL QUARTER SUPERVISOR, GODWIN 300 .01 AN PANIC DIS W/O AGORA 07/16/2009 SONNY QUARTER SUPERVISOR, ELIAS A 300.01 AN PANIC DIS W/O AGORA 07/16/2009 [facility], DEMOND R 300.01 AN PANIC DIS W/O AGORA 07/16/2009 MADL QUARTER SUPERVISOR, FLO L 300 .01 AN PANIC DIS W/O AGORA 07/16/2009 NUSRAT JENKINSS, JOSE 300.01 AN PANIC DIS W/O AGORA 07/16/2009 [facility], DEMOND R 300.01 AN PANIC DIS W/O AGORA 07/16/2009 [facility], DEMOND R 300.01 AN PANIC DIS W/O AGORA 07/16/2009 ROEL QUARTER SUPERVISOR, GODWIN 300 .01 AN PANIC DIS W/O AGORA 07/16/2009 NICOLA MANUEL DO 300.01 AN PANIC DIS W/O AGORA 07/16/2009 ROEL QUARTER SUPERVISOR, GODWIN 300 .01 AN PANIC DIS W/O AGORA 07/16/2009 ROEL QUARTER SUPERVISOR, GODWIN 300 .01 AN PANIC DIS W/O [...] 07/25/2009 307.47 Si Dyssomnia Nos 07/25/2009 MAR BLANTONNICOLA K 307.47 Si Dyssomnia Nos 07/25/2009 JASON HUNTER APRN 307.47 Si Dyssomnia Nos 07/25/2009 WOLF JAMA MD 307.4 7 Si Dyssomnia Nos 07/25/2009 MAR BLANTONNICOLA K 307.47 Si Dyssomnia Nos 07/25/2009 KELY FRIEDMAN DDS 307.47 Si Dyssomnia Nos 07/25/2009 JASON HUNTER APRN 307.47 Si Dyssomnia Nos 07/25/2009 JASON HUNTER APRN 307.47 Si Dyssomnia Nos 07/25/2009 JASON HUNTER APRN 307.47 Si Dyssomnia Nos 07/25/2009 WOLF JAMA MD 307.4 7 Si Dyssomnia Nos 07/25/2009 GODWIN SEVILLA APRN 307 .47 Si Dyssomnia Nos 07/25/2009 NARAYAN GONZALEZ APRNWNYA L 307 .47 Si Dyssomnia Nos 07/25/2009 MICHAEL SEVILLA APRNETTE 307 .47 Si Dyssomnia Nos 07/25/2009 LISA MENG, FLO L 307 .47 Si Dyssomnia Nos 07/25/2009 ROLE MENG GODWIN 307 .47 Si Dyssomnia Nos 07/25/2009 ROEL MENG GODWIN 307 .47 Si Dyssomnia Nos 07/25/2009 LISA MENG, FLO L 307 .47 Si Dyssomnia Nos 07/25/2009 LISA MENG, FLO L 307 .47 Si Dyssomnia Nos 07/25/2009 OREL QUARTER SUPERVISOR, GODWIN 307 .47 Si Dyssomnia Nos 07/25/2009 SONNY QUARTER SUPERVISOR, ELIAS A 307.47 Si Dyssomnia Nos 07/25/2009 [facility], DEMOND R 307.47 Si Dyssomnia Nos 07/25/2009 MADTima QUARTER SUPERVISOR, FLO L 307 .47 Si Dyssomnia Nos 07/25/2009 SILVERIO ALICES, JOSE 307.47 Si Dyssomnia Nos 07/25/2009 [facility], DEMOND R 307.47 Si Dyssomnia Nos 07/25/2009 [facility], DEMOND R 307.47 Si Dyssomnia Nos 07/25/2009 ROEL QUARTER SUPERVISOR, GODWIN 307 .47 Si Dyssomnia Nos 07/25/2009 NICOLA MANUEL DO 307.47 Si Dyssomnia Nos 07/25/2009 ROEL QUARTER SUPERVISOR, GODWIN 307 .47 Si Dyssomnia Nos 07/25/2009 ROEL QUARTER SUPERVISOR, GODWIN 307 .47 Si Dyssomnia Nos 12/17/2009 [...] DDS 31 1 DEPRESSIVE DISORDER NOS 12/17/2009 GARTON QUARTER SUPERVISOR, JASON D 311 DEPRESSIVE DISORDER NOS 12/17/2009 GARTON QUARTER SUPERVISOR, JASON D 311 DEPRESSIVE DISORDER NOS 12/17/2009 GARTON QUARTER SUPERVISOR, JASON D 311 DEPRESSIVE DISORDER NOS 12/17/2009 WOLF JAMA MD 311 DEPRESSIVE DISORDER NOS 12/17/2009 ROEL QUARTER SUPERVISOR, GODWIN 311 DEPRESSIVE DISORDER NOS 12/17/2009 MADL QUARTER SUPERVISOR, FLO L 311 DEPRESSIVE DISORDER NOS 12/17/2009 ROEL QUARTER SUPERVISOR, GODWIN 311 DEPRESSIVE DISORDER NOS 12/17/2009 MADL QUARTER SUPERVISOR, FLO L 311 DEPRESSIVE DISORDER NOS 12/17/2009 ROEL QUARTER SUPERVISOR, GODWIN 311 DEPRESSIVE DISORDER NOS 12/17/2009 ROEL QUARTER SUPERVISOR, GODWIN 311 DEPRESSIVE DISORDER NOS 12/17/2009 MADL QUARTER SUPERVISOR, FLO L 311 DEPRESSIVE DISORDER NOS 12/17/2009 MADL QUARTER SUPERVISOR, FLO L 311 DEPRESSIVE DISORDER NOS 12/17/2009 ROEL QUARTER SUPERVISOR, GODWIN 311 DEPRESSIVE DISORDER NOS 12/17/2009 SONNY QUARTER SUPERVISOR, ELIAS A 31 1 DEPRESSIVE DISORDER NOS 12/17/2009 [facility], DEMOND R 311 DEPRESSIVE DISORDER NOS 12/17/2009 MADL QUARTER SUPERVISOR, FLO L 311 DEPRESSIVE DISORDER NOS 12/17/2009 NUSRAT JENKINSJOSE Shin 31 1 DEPRESSIVE DISORDER NOS 12/17/2009 [facility], DEMOND R 311 DEPRESSIVE DISORDER NOS 12/17/2009 [facility], DEMOND R 311 DEPRESSIVE DISORDER NOS 12/17/2009 ROEL QUARTER SUPERVISOR, GODWIN 311 DEPRESSIVE DISORDER NOS 12/17/2009 NICOLA MANUEL DO 311 DEPRESSIVE DISORDER NOS 12/17/2009 ROEL QUARTER SUPERVISOR, GODWIN 311 DEPRESSIVE DISORDER NOS 12/17/2009 ROEL QUARTER SUPERVISOR, GODWIN 311 DEPRESSIVE DISORDER NOS 05/06/2010 Ot 620.2 05/06/2010 Ot 789.04 05/13/2010 WOLF JAMA MD V72.3 1 Memory Care Program Resident Exam, Routine 05/13/2010 WOLF JAMA MD V72.3 1 Memory Care Program Resident Exam, Routine 05/13/2010 V72.31 Memory Care Program Resident Exam, Routine 05/13/2010 NICOLA MANUEL DO V72.31 Memory Care Program Resident Exam, Routine 05/13/2010 KRYSNIK JASON Mathew V72 .31 Memory Care Program Resident Exam, Routine 05/13/2010 V72.31 Memory Care Program Resident Exam, Routine 05/13/2010 V72.31 Memory Care Program Resident Exam, Routine 05/13/2010 V72.31 Memory Care Program Resident Exam, Routine 05/13/2010 V72.31 Memory Care Program Resident Exam, Routine 05/13/2010 V72.31 Memory Care Program Resident Exam, Routine 05/13/2010 V72.31 Memory Care Program Resident Exam, Routine 05/13/2010 V72.31 Memory Care Program Resident Exam, Routine 05/13/2010 V72.31 Memory Care Program Resident Exam, Routine 05/13/2010 V72.31 Memory Care Program Resident Exam, Routine 05/13/2010 V72.31 Memory Care Program Resident Exam, Routine 05/13/2010 V72.31 Memory Care Program Resident Exam, Routine 05/13/2010 NICOLA MANUEL DO V72.31 Memory Care Program Resident Exam, Routine 05/13/2010 JASON HUNTER APRN V72.31 Memory Care Program Resident Exam, Routine 05/13/2010 WOLF JAMA MD V72.3 1 Memory Care Program Resident Exam, Routine 05/13/2010 NICOLA MANUEL DO V72.31 Memory Care Program Resident Exam, Routine 05/13/2010 KELY FRIEDMAN DDS V72.31 Memory Care Program Resident Exam, Routine 05/13/2010 JASON HUNTER APRN V72.31 Memory Care Program Resident Exam, Routine 05/13/2010 JASON HUNTER APRN V72.31 Memory Care Program Resident Exam, Routine 05/13/2010 JASON HUNTER APRN V72.31 Memory Care Program Resident Exam, Routine 05/13/2010 WOLF JAMA MD V72.3 1 Memory Care Program Resident Exam, Routine 05/13/2010 ROEL QUARTER SUPERVISOR, GODWIN V72 .31 Memory Care Program Resident Exam, Routine 05/13/2010 MADL QUARTER SUPERVISOR, FLO L V72 .31 Memory Care Program Resident Exam, Routine 05/13/2010 ROEL QUARTER SUPERVISOR, GODWIN V72 .31 Memory Care Program Resident Exam, Routine 05/13/2010 MADL QUARTER SUPERVISOR, FLO L V72 .31 Memory Care Program Resident Exam, Routine 05/13/2010 ROEL QUARTER SUPERVISOR, GODWIN V72 .31 Memory Care Program Resident Exam, Routine 05/13/2010 ROEL QUARTER SUPERVISOR, GODWIN V72 .31 Memory Care Program Resident Exam, Routine 05/13/2010 MADL QUARTER SUPERVISOR, FLO L V72 .31 Memory Care Program Resident Exam, Routine 05/13/2010 LISA QUARTER SUPERVISORFLO Kirkpatrick V72 .31 Memory Care Program Resident Exam, Routine 05/13/2010 ROEL QUARTER SUPERVISORGODWIN Kirkpatrick V72 .31 Memory Care Program Resident Exam, Routine 05/13/2010 SONNY MENG, ELIAS Jordan V72.31 Memory Care Program Resident Exam, Routine 05/13/2010 [facility], DEMOND R V72.31 Memory Care Program Resident Exam, Routine 05/13/2010 LISA QUARTER SUPERVISORFLO V72 .31 Memory Care Program Resident Exam, Routine 05/13/2010 NUSRAT BAKER JOSE V72.31 Memory Care Program Resident Exam, Routine 05/13/2010 [facility], DEMOND R V72.31 Memory Care Program Resident Exam, Routine 05/13/2010 [facility], DEMOND R V72.31 Memory Care Program Resident Exam, Routine 05/13/2010 ROEL QUARTER SUPERVISORGODWIN V72 .31 Memory Care Program Resident Exam, Routine 05/13/2010 MAR BLANTON NICOLA Jacinta V72.31 Memory Care Program Resident Exam, Routine 05/13/2010 ROEL QUARTER SUPERVISOR, GODWIN V72 .31 Memory Care Program Resident Exam, Routine 05/13/2010 ROEL QUARTER SUPERVISOR GODWIN V72 .31 Memory Care Program Resident Exam, Routine 05/26/2010 Ot 526.9 05/26/2010 Ot [...] DYST HYMIC DISORDER 09/13/2011 Ot 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 09/13/2011 Ot 427.89 CAR DIAC [...] WOLF JAMA MD 276.8 Hypopotassemia 09/29/2011 MANUEL DOMARALA K 276.8 Hypopotassemia 09/29/2011 KELY FRIEDMAN DDS J 27 6.8 Hypopotassemia 09/29/2011 JASON HUNTER APRN 276.8 Hypopotassemia 09/29/2011 JASON HUNTER APRN 276.8 Hypopotassemia 09/29/2011 JASON HUNETR APRN 276.8 Hypopotassemia 09/29/2011 WOLF JAMA MD 276.8 Hypopotassemia 09/29/2011 ROEL QUARTER SUPERVISOR, GODWIN 276 .8 Hypopotassemia 09/29/2011 MADL QUARTER SUPERVISOR, FLO L 276 .8 Hypopotassemia 09/29/2011 ROEL QUARTER SUPERVISOR, GODWIN 276 .8 Hypopotassemia 09/29/2011 MADL QUARTER SUPERVISOR, FLO L 276 .8 Hypopotassemia 09/29/2011 ROEL QUARTER SUPERVISOR, GODWIN 276 .8 Hypopotassemia 09/29/2011 ROEL QUARTER SUPERVISOR, GODWIN 276 .8 Hypopotassemia 09/29/2011 MADL QUARTER SUPERVISOR, FLO L 276 .8 Hypopotassemia 09/29/2011 MADL QUARTER SUPERVISOR, FLO L 276 .8 Hypopotassemia 09/29/2011 ROEL QUARTER SUPERVISOR, GODWIN 276 .8 Hypopotassemia 09/29/2011 SONNY MENG, ELIAS A 27 6.8 Hypopotassemia 09/29/2011 [facility], DEMOND R 276.8 Hypopotassemia 09/29/2011 MADTima QUARTER SUPERVISOR, FLO L 276 .8 Hypopotassemia 09/29/2011 JOSE SILVERIO DDS 27 6.8 Hypopotassemia 09/29/2011 [facility], DEMOND R 276.8 Hypopotassemia 09/29/2011 [facility], DEMOND R 276.8 Hypopotassemia 09/29/2011 [employer]EL QU[employer] SUPERVIS[employer], GODWIN 276 .8 Hypopotassemia 09/29/2011 MANUEL DO, NICOLA K 276.8 Hypopotassemia 09/29/2011 [employer]EL QUAR[employer] SUPERVISOR, GODWIN 276 .8 Hypopotassemia 09/29/2011 ROEL QUARTER SUPERVISOR, GODWIN 276 .8 Hypopotassemia 12/13/2011 [facility] [...] Unspecified Disease Of The Jaws 12/13/2011 ROEL QUARTER SUPERVISOR, GODWIN 526 .9 Unspecified Disease Of The Jaws 12/13/2011 MADL QUARTER SUPERVISOR, FLO L 526 .9 Unspecified Disease Of The Jaws 12/13/2011 ROEL QUARTER SUPERVISOR, GODWIN 526 .9 Unspecified Disease Of The Jaws 12/13/2011 MADL QUARTER SUPERVISOR, FLO L 526 .9 Unspecified Disease Of The Jaws 12/13/2011 ROEL QUARTER SUPERVISOR, GODWIN 526 .9 Unspecified Disease Of The Jaws 12/13/2011 ROEL QUARTER SUPERVISOR, GODWIN 526 .9 Unspecified Disease Of The Jaws 12/13/2011 MADL QUARTER SUPERVISOR, FLO L 526 .9 Unspecified Disease Of The Jaws 12/13/2011 MADL QUARTER SUPERVISOR, FLO L 526 .9 Unspecified Disease Of The Jaws 12/13/2011 ROEL QUARTER SUPERVISOR, GODWIN 526 .9 Unspecified Disease Of The Jaws 12/13/2011 SONNY APRN, ELIAS A 52 6.9 Unspecified Disease Of The Jaws 12/13/2011 [facility], DEMOND R 526.9 Unspecified Disease Of The Jaws 12/13/2011 MADL QUARTER SUPERVISOR, FLO L 526 .9 Unspecified Disease Of The Jaws 12/13/2011 JOSE SILVERIO DDS 52 6.9 Unspecified Disease Of The Jaws 12/13/2011 [facility], DEMOND R 526.9 Unspecified Disease Of The Jaws 12/13/2011 [facility], DEMOND R 526.9 Unspecified Disease Of The Jaws 12/13/2011 [employer]EL QUAR[employer] SUPERVISOR, GODWIN 526 .9 Unspecified Disease Of The Jaws 12/13/2011 NICOLA MANUEL DO 526.9 Unspecified Disease Of The Jaws 12/13/2011 [employer]EL QUARTER SUPERVISOR, GODWIN 526 .9 Unspecified Disease Of The Jaws 12/13/2011 ROEL QUARTER SUPERVISOR, GODWIN 526 .9 Unspecified Disease Of The [...] JASON HUNTER APRN V25.9 Contraception Management 12/29/2011 GARTON QUARTER SUPERVISOR, JASON D V76.2 Cervical Cancer Screening (pap Smear) [...] Screening (pap Smear) 12/29/2011 GODWIN SEVILLA APRN 256 .4 POLYCYSTIC OVARIAN SYNDROME 12/29/2011 ROEL MENG GODWIN 427 .89 Other Specified Cardiac Dysrhythmias 12/29/2011 ROEL MENG GODWIN V25 .9 Contraception Management 12/29/2011 ROEL MENG GODWIN V76 .2 Cervical Cancer Screening (pap Smear) 12/29/2011 LISA MENG, FLO L 256 .4 POLYCYSTIC OVARIAN SYNDROME 12/29/2011 MADL QUARTER SUPERVISOR, FLO L 427 .89 Other Specified Cardiac Dysrhythmias 12/29/2011 MADL QUARTER SUPERVISOR, FLO L V25 .9 Contraception Management 12/29/2011 MADL QUARTER SUPERVISOR, FLO L V76 .2 Cervical Cancer Screening (pap Smear) 12/29/2011 ROEL MENG GODWIN 256 .4 POLYCYSTIC OVARIAN SYNDROME 12/29/2011 ROEL MENG GODWIN 427 .89 Other Specified Cardiac Dysrhythmias 12/29/2011 ROEL QUARTER SUPERVISOR, GODWIN V25 .9 Contraception Management 12/29/2011 ROEL QUARTER SUPERVISOR, GODWIN V76 .2 Cervical Cancer Screening (pap Smear) 12/29/2011 MADL QUARTER SUPERVISOR, FLO L 256 .4 POLYCYSTIC OVARIAN SYNDROME 12/29/2011 MADL QUARTER SUPERVISOR, FLO L 427 .89 Other Specified Cardiac Dysrhythmias 12/29/2011 MADL QUARTER SUPERVISOR, FLO L V25 .9 Contraception Management 12/29/2011 MADL QUARTER SUPERVISOR, FLO L V76 .2 Cervical Cancer Screening (pap Smear) 12/29/2011 ROEL QUARTER SUPERVISOR, GODWIN 256 .4 POLYCYSTIC OVARIAN SYNDROME 12/29/2011 ROEL QUARTER SUPERVISOR, GODWIN 427 .89 Other Specified Cardiac Dysrhythmias 12/29/2011 ROEL QUARTER SUPERVISOR, GODWIN V25 .9 Contraception Management 12/29/2011 ROEL QUARTER SUPERVISOR, GODWIN V76 .2 Cervical Cancer Screening (pap Smear) 12/29/2011 ROEL QUARTER SUPERVISOR, GODWIN 256 .4 POLYCYSTIC OVARIAN SYNDROME 12/29/2011 ROEL QUARTER SUPERVISOR, GODWIN 427 .89 Other Specified Cardiac Dysrhythmias 12/29/2011 ROEL QUARTER SUPERVISOR, GODWIN V25 .9 Contraception Management 12/29/2011 ROEL QUARTER SUPERVISOR, GODWIN V76 .2 Cervical Cancer Screening (pap Smear) 12/29/2011 MADL QUARTER SUPERVISOR, FLO L 256 .4 POLYCYSTIC OVARIAN SYNDROME 12/29/2011 MADL QUARTER SUPERVISOR, FLO L 427 .89 Other Specified Cardiac Dysrhythmias 12/29/2011 MADL QUARTER SUPERVISOR, FLO L V25 .9 Contraception Management 12/29/2011 MADL QUARTER SUPERVISOR, FLO L V76 .2 Cervical Cancer Screening (pap Smear) 12/29/2011 MADL QUARTER SUPERVISOR, FLO L 256 .4 POLYCYSTIC OVARIAN SYNDROME 12/29/2011 MADL QUARTER SUPERVISOR, FLO L 427 .89 Other Specified Cardiac Dysrhythmias 12/29/2011 MADL QUARTER SUPERVISOR, FLO L V25 .9 Contraception Management 12/29/2011 MADL QUARTER SUPERVISOR, FLO L V76 .2 Cervical Cancer Screening (pap Smear) 12/29/2011 ROEL QUARTER SUPERVISOR, GODWIN 256 .4 POLYCYSTIC OVARIAN SYNDROME 12/29/2011 GODWIN SEVILLA APRN 427 .89 Other Specified Cardiac Dysrhythmias 12/29/2011 ROEL QUARTER SUPERVISOR, GODWIN V25 .9 Contraception Management 12/29/2011 ROEL QUARTER SUPERVISOR, GODWIN V76 .2 Cervical Cancer Screening (pap Smear) 12/29/2011 SONNY MENG, ELIAS A 25 6.4 POLYCYSTIC OVARIAN SYNDROME 12/29/2011 SONNY CANON, ELIAS A 427.89 Other Specified Cardiac Dysrhythmias 12/29/2011 SONNY CANON, ELIAS A V2 5.9 Contraception Management 12/29/2011 SONNY CANON, ELIAS A V7 6.2 Cervical Cancer Screening (pap Smear) 12/29/2011 [facility], DEMOND R 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 12/29/2011 [facility], DEMOND R 427.89 Other Specified Cardiac Dysrhythmias 12/29/2011 [facility], DEMOND R V25.9 Contraception Management 12/29/2011 [facility], DEMOND R V76.2 Cervical Cancer Screening (pap Smear) 12/29/2011 MADL QUARTER SUPERVISOR, FLO L 256 .4 POLYCYSTIC OVARIAN SYNDROME 12/29/2011 MADL QUARTER SUPERVISOR, FLO L 427 .89 Other Specified Cardiac Dysrhythmias 12/29/2011 MADL QUARTER SUPERVISOR, FLO L V25 .9 Contraception Management 12/29/2011 MADL QUARTER SUPERVISOR, FLO L V76 .2 Cervical Cancer Screening (pap Smear) 12/29/2011 SILVERIO DDS, JOSE 25 6.4 POLYCYSTIC OVARIAN SYNDROME 12/29/2011 SILVERIO DDS, JOSE 427.89 Other Specified Cardiac Dysrhythmias 12/29/2011 SILVERIO DDS, JOSE V2 5.9 Contraception Management 12/29/2011 SILVERIO DDS, JOSE V7 6.2 Cervical Cancer Screening (pap Smear) 12/29/2011 [facility], DEMOND R 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 12/29/2011 [facility], DEMOND R 427.89 Other Specified Cardiac Dysrhythmias 12/29/2011 [facility], DEMOND R V25.9 Contraception Management 12/29/2011 [facility], DEMOND R V76.2 Cervical Cancer Screening (pap Smear) 12/29/2011 [facility], DEMOND R 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 12/29/2011 [facility], DEMOND R 427.89 Other Specified Cardiac Dysrhythmias 12/29/2011 [facility], DEMOND R V25.9 Contraception Management 12/29/2011 [facility], DEMOND R V76.2 Cervical Cancer Screening (pap Smear) 12/29/2011 ROEL QUARTER SUPERVISOR, GODWIN 256 .4 POLYCYSTIC OVARIAN SYNDROME 12/29/2011 ROEL QUARTER SUPERVISOR, GODWIN 427 .89 Other Specified Cardiac Dysrhythmias 12/29/2011 ROEL QUARTER SUPERVISOR, GODWIN V25 .9 Contraception Management 12/29/2011 ROEL QUARTER SUPERVISOR, GODWIN V76 .2 Cervical Cancer Screening (pap Smear) 12/29/2011 MANUEL MARAL BLANTONA K 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 12/29/2011 MANUEL DOMARALA K 427.89 Other Specified Cardiac Dysrhythmias 12/29/2011 MANUEL MARAL BLANTONA K V25.9 Contraception Management 12/29/2011 MANUEL MARAL BLANTONA K V76.2 Cervical Cancer Screening (pap Smear) 12/29/2011 ROEL QUARTER SUPERVISOR, GODWIN 256 .4 POLYCYSTIC OVARIAN SYNDROME 12/29/2011 ROEL QUARTER SUPERVISOR, GODWIN 427 .89 Other Specified Cardiac Dysrhythmias 12/29/2011 ROEL QUARTER SUPERVISOR, GODWIN V25 .9 Contraception Management 12/29/2011 ROEL QUARTER SUPERVISOR, GODWIN V76 .2 Cervical Cancer Screening (pap Smear) 12/29/2011 ROEL QUARTER SUPERVISOR, GODWIN 256 .4 POLYCYSTIC OVARIAN SYNDROME 12/29/2011 ROEL QUARTER SUPERVISOR, GODWIN 427 .89 Other Specified Cardiac Dysrhythmias 12/29/2011 ROEL QUARTER SUPERVISOR, GODWIN V25 .9 Contraception Management 12/29/2011 ROEL QUARTER SUPERVISOR, GODWIN V76 .2 Cervical Cancer Screening (pap [...] DO K 427.9 Arrhythmia, Cardiac (sinus) 01/25/2012 MARAL MANUEL DOA K 786.50 Unspecified Chest Pain 01/25/2012 NICOLA MANUEL DO K 795.03 Papanicolaou Smear Of Cervix With Low Grade Squamous Intraepithelial Lesion (lgsil) 01/25/2012 JASON SOLANO DO F 427 .9 Arrhythmia, Cardiac (sinus) 01/25/2012 JASON SOLANO DO F 786 .50 Unspecified Chest Pain 01/25/2012 JASON SOLANO DO F 795 .03 Papanicolaou Smear Of Cervix [...] Low Grade Squamous Intraepithelial Lesion (lgsil) 01/25/2012 GARTON QUARTER SUPERVISOR, JASON D 427.9 Arrhythmia, Cardiac (sinus) 01/25/2012 JASON HUNTER APRN D 786.50 Unspecified Chest Pain 01/25/2012 AJSON HUNTER APRN D 795.03 Papanicolaou Smear Of [...] Grade Squamous Intraepithelial Lesion (lgsil) 01/25/2012 ROEL QUARTER SUPERVISOR, GODWIN 427 .9 Arrhythmia, Cardiac (sinus) 01/25/2012 ROEL QUARTER SUPERVISOR, GODWIN 786 .50 Unspecified Chest Pain 01/25/2012 ROEL QUARTER SUPERVISOR, GODWIN 795 .03 Papanicolaou Smear Of Cervix With Low Grade Squamous Intraepithelial Lesion (lgsil) 01/25/2012 MADL QUARTER SUPERVISOR, FLO L 427 .9 Arrhythmia, Cardiac (sinus) 01/25/2012 MADL QUARTER SUPERVISOR, FLO L 786 .50 Unspecified Chest Pain 01/25/2012 MADL QUARTER SUPERVISOR, FLO L 795 .03 Papanicolaou Smear Of Cervix With Low Grade Squamous Intraepithelial Lesion (lgsil) 01/25/2012 ROEL QUARTER SUPERVISOR, GODWIN 427 .9 Arrhythmia, Cardiac (sinus) 01/25/2012 ROEL QUARTER SUPERVISOR, GODWIN 786 .50 Unspecified Chest Pain 01/25/2012 ROEL QUARTER SUPERVISOR, GODWIN 795 .03 Papanicolaou Smear Of Cervix With Low Grade Squamous Intraepithelial Lesion (lgsil) 01/25/2012 MADL QUARTER SUPERVISOR, FLO L 427 .9 Arrhythmia, Cardiac (sinus) 01/25/2012 MADL QUARTER SUPERVISOR, FLO L 786 .50 Unspecified Chest Pain 01/25/2012 MADL QUARTER SUPERVISOR, FLO L 795 .03 Papanicolaou Smear Of Cervix With Low Grade Squamous Intraepithelial Lesion (lgsil) 01/25/2012 ROEL QUARTER SUPERVISOR, GODWIN 427 .9 Arrhythmia, Cardiac (sinus) 01/25/2012 ROEL QUARTER SUPERVISOR, GODWIN 786 .50 Unspecified Chest Pain 01/25/2012 ROEL QUARTER SUPERVISOR, GODWIN 795 .03 Papanicolaou Smear Of Cervix With Low Grade Squamous Intraepithelial Lesion (lgsil) 01/25/2012 ROEL QUARTER SUPERVISOR, GODWIN 427 .9 Arrhythmia, Cardiac (sinus) 01/25/2012 ROEL QUARTER SUPERVISOR, GODWIN 786 .50 Unspecified Chest Pain 01/25/2012 ROEL QUARTER SUPERVISOR, GODWIN 795 .03 Papanicolaou Smear Of Cervix With Low Grade Squamous Intraepithelial Lesion (lgsil) 01/25/2012 MADL QUARTER SUPERVISOR, FLO L 427 .9 Arrhythmia, Cardiac (sinus) 01/25/2012 MADL QUARTER SUPERVISOR, FLO L 786 .50 Unspecified Chest Pain 01/25/2012 MADL QUARTER SUPERVISOR, FLO L 795 .03 Papanicolaou Smear Of Cervix With Low Grade Squamous Intraepithelial Lesion (lgsil) 01/25/2012 MADL QUARTER SUPERVISOR, FLO L 427 .9 Arrhythmia, Cardiac (sinus) 01/25/2012 MADL QUARTER SUPERVISOR, FLO L 786 .50 Unspecified Chest Pain 01/25/2012 MADL QUARTER SUPERVISOR, FLO L 795 .03 Papanicolaou Smear Of Cervix With Low Grade Squamous Intraepithelial Lesion (lgsil) 01/25/2012 ROEL QUARTER SUPERVISOR, GODWIN 427 .9 Arrhythmia, Cardiac (sinus) 01/25/2012 ROEL QUARTER SUPERVISOR GODWIN 786 .50 Unspecified Chest Pain 01/25/2012 ROEL QUARTER SUPERVISOR, GODWIN 795 .03 Papanicolaou Smear Of Cervix With Low Grade Squamous Intraepithelial Lesion (lgsil) 01/25/2012 SONNY MENG ELIAS A 42 7.9 Arrhythmia, Cardiac (sinus) 01/25/2012 SONNY MENG ELIAS A 786.50 Unspecified Chest Pain 01/25/2012 SONNY MENG ELIAS A 795.03 Papanicolaou Smear Of Cervix With Low Gr elise Squamous Intraepithelial Lesion (lgsil) 01/25/2012 [facility], DEMOND R 427.9 Arrhythmia, Cardiac (sinus) 01/25/2012 [facility] 786.50 Unspecified Chest Pain 01/25/2012 [facility] 795.03 Papanicolaou Smear Of Cervix With Low Gr elise Squamous Intraepithelial Lesion (lgsil) 01/25/2012 MADL QUARTER SUPERVISOR, FLO L 427 .9 Arrhythmia, Cardiac (sinus) 01/25/2012 MAD QUARTER SUPERVISOR, FLO L 786 .50 Unspecified Chest Pain 01/25/2012 LISA MENG, FLO L 795 .03 Papanicolaou Smear Of Cervix With Low Grade Squamous Intraepithelial Lesion (lgsil) 01/25/2012 NUSRAT DDS, JOSE 42 7.9 Arrhythmia, Cardiac (sinus) 01/25/2012 SILVERIO DDS, JOSE [...] DEMOND R 427.9 Arrhythmia, Cardiac (sinus) 01/25/2012 [facility], DEMOND R 786.50 Unspecified Chest Pain 01/25/2012 [facility], DEMOND R 795.03 Papanicolaou Smear Of Cervix With Low Gr elise Squamous Intraepithelial Lesion (lgsil) 01/25/2012 ROEL QUARTER SUPERVISOR, GODWIN 427 .9 Arrhythmia, Cardiac (sinus) 01/25/2012 ROEL QUARTER SUPERVISOR, GODWIN 786 .50 Unspecified Chest Pain 01/25/2012 ROEL QUARTER SUPERVISOR, GODWIN 795 .03 Papanicolaou Smear Of Cervix With Low Grade Squamous Intraepithelial Lesion (lgsil) 01/25/2012 MAR BLANTON NICOLA K 427.9 Arrhythmia, Cardiac (sinus) 01/25/2012 MANUEL DO NICOLA K 786.50 Unspecified Chest Pain 01/25/2012 MAR BLANTON NICOLA K 795.03 Papanicolaou Smear Of Cervix With Low Grade Squamous Intraepithelial Lesion (lgsil) 01/25/2012 ROEL QUARTER SUPERVISOR, GODWIN 427 .9 Arrhythmia, Cardiac (sinus) 01/25/2012 ROEL QUARTER SUPERVISOR, GODWIN 786 .50 Unspecified Chest Pain 01/25/2012 ROEL QUARTER SUPERVISOR, GODWIN 795 .03 Papanicolaou Smear Of Cervix With Low Grade Squamous Intraepithelial Lesion (lgsil) 01/25/2012 ROEL QUARTER SUPERVISOR, GODWIN 427 .9 Arrhythmia, Cardiac (sinus) 01/25/2012 GODWIN SEVILLA APRN 786 .50 Unspecified Chest Pain 01/25/2012 GODWIN SEVILLA APRN 795 .03 Papanicolaou Smear Of Cervix With [...] Unspecified 06/25/2012 789.00 abd ominal pain 06/25/2012 MANUEL DONICOLA K 724.5 Backache Unspecified 06/25/2012 MANUEL DOMARALA K 789.00 abdominal pain 06/25/2012 JASON HUNTER APRN 724.5 Backache Unspecified 06/25/2012 JASON HUNTER APRN 789.00 abdominal pain 06/25/2012 WOLF JAMA MD 724.5 Backache Unspecified 06/25/2012 WOLF JAMA MD 789.0 0 abdominal pain 06/25/2012 MANUEL NICOLA BLANTON K 724.5 Backache Unspecified 06/25/2012 MANUEL DONICOLA K 789.00 abdominal pain 06/25/2012 KELY FRIEDMAN DDS 72 4.5 Backache Unspecified 06/25/2012 KELY FRIEDMAN DDS 789.00 abdominal pain 06/25/2012 JASON HUNTER APRN 724.5 Backache Unspecified 06/25/2012 JASON HUNTER APRN 789.00 abdominal pain 06/25/2012 JASON HUNTER APRN 724.5 Backache Unspecified 06/25/2012 JASON HUNTER APRN 789.00 abdominal pain 06/25/2012 JASON HUNTER APRN 724.5 Backache Unspecified 06/25/2012 JASON HUNTER APRN 789.00 abdominal pain 06/25/2012 WOLF JAMA MD 724.5 Backache Unspecified 06/25/2012 WOLF JAMA MD 789.0 0 abdominal pain 06/25/2012 GODWIN SEVILLA APRN 724 .5 Backache Unspecified 06/25/2012 GODWIN SEVILLA APRN 789 .00 abdominal pain 06/25/2012 FLO GONZALEZ APRN L 724 .5 Backache Unspecified 06/25/2012 FLO GONZALEZ APRN L 789 .00 abdominal pain 06/25/2012 ROEL QUARTER SUPERVISOR, GODWIN 724 .5 Backache Unspecified 06/25/2012 ROEL QUARTER SUPERVISOR, GODWIN 789 .00 abdominal pain 06/25/2012 MADL QUARTER SUPERVISOR, FLO L 724 .5 Backache Unspecified 06/25/2012 MADL QUARTER SUPERVISOR, FLO L 789 .00 abdominal pain 06/25/2012 ROEL QUARTER SUPERVISOR, GODWIN 724 .5 Backache Unspecified 06/25/2012 ROEL QUARTER SUPERVISOR, GODWIN 789 .00 abdominal pain 06/25/2012 ROEL QUARTER SUPERVISOR, GODWIN 724 .5 Backache Unspecified 06/25/2012 ROEL QUARTER SUPERVISOR, GODWIN 789 .00 abdominal pain 06/25/2012 MADL QUARTER SUPERVISOR, FLO L 724 .5 Backache Unspecified 06/25/2012 MADL QUARTER SUPERVISOR, FLO L 789 .00 abdominal pain 06/25/2012 MADL QUARTER SUPERVISOR, FLO L 724 .5 Backache Unspecified 06/25/2012 MADL QUARTER SUPERVISOR, FLO L 789 .00 abdominal pain 06/25/2012 ROEL QUARTER SUPERVISOR, GODWIN 724 .5 Backache Unspecified 06/25/2012 ROEL QUARTER SUPERVISOR, GODWIN 789 .00 abdominal pain 06/25/2012 SONNY QUARTER SUPERVISOR, ELIAS A 72 4.5 Backache Unspecified 06/25/2012 SONNY QUARTER SUPERVISOR, ELIAS A 789.00 abdominal pain 06/25/2012 [facility], DEMOND R 724.5 Backache Unspecified 06/25/2012 [facility], DEMOND R 789.00 abdominal pain 06/25/2012 MADL QUARTER SUPERVISOR, FLO L 724 .5 Backache Unspecified 06/25/2012 MADL QUARTER SUPERVISOR, FLO L 789 .00 abdominal pain 06/25/2012 SILVERIO DDS, JOSE 72 4.5 Backache Unspecified 06/25/2012 SILVERIO DDS, JOSE 789.00 abdominal pain 06/25/2012 [facility], DEMOND R 724.5 Backache Unspecified 06/25/2012 [facility], DEMOND R 789.00 abdominal pain 06/25/2012 [facility], DEMOND R 724.5 Backache Unspecified 06/25/2012 [facility], DEMOND R 789.00 abdominal pain 06/25/2012 ROEL QUARTER SUPERVISOR, GODWIN 724 .5 Backache Unspecified 06/25/2012 ROEL QUARTER SUPERVISOR, GODWIN 789 .00 abdominal pain 06/25/2012 NICOLA MANUEL DO K 724.5 Backache Unspecified 06/25/2012 NICOLA MANUEL DO K 789.00 abdominal pain 06/25/2012 ROEL QUARTER SUPERVISOR, GODWIN 724 .5 Backache Unspecified 06/25/2012 ROEL QUARTER SUPERVISOR, GODWIN 789 .00 abdominal pain 06/25/2012 ROEL QUARTER SUPERVISOR, GODWIN 724 .5 Backache Unspecified 06/25/2012 ROEL QUARTER SUPERVISOR, GODWIN 789 .00 abdominal pain 06/27/2012 WOLF JAMA [...] Breath 06/27/[address] Pain 06/27/2012 NICOLA MANUEL DO K 785.1 Palpitations 06/27/2012 NICOLA MANUEL DO [...] Breath 06/27/[address] Pain 06/27/2012 NICOLA MANUEL DO 785.1 Palpitations 06/27/2012 NICOLA MANUEL DO K 786.05 Shortness Of Breath 06/27/2012 NICOLA MANUEL DO 786.50 Chest Pain 06/27/2012 JASON HUNTER APRN 785.1 Palpitations 06/27/2012 JASON HUNTER APRN 786.05 Shortness Of Breath 06/27/2012 JASON HUNTER APRN 786.50 Chest Pain 06/27/2012 WOLF JAMA MD 785.1 Palpitations 06/27/2012 WOLF JAMA MD 786.0 5 Shortness Of Breath 06/27/2012 WOLF JAMA MD 786.5 0 Chest Pain 06/27/2012 NICOLA MANUEL DO 785.1 Palpitations 06/27/2012 MANUEL DO, NICOLA K 786.05 Shortness Of Breath 06/27/2012 MANUEL DO, NICOLA K 786.50 Chest Pain 06/27/2012 WHITE DDS, KELY J 78 5.1 Palpitations 06/27/2012 WHITE DDS, KELY J 786.05 Shortness Of Breath 06/27/2012 WHITE DDS, KELY J 786.50 Chest Pain 06/27/2012 GARTON QUARTER SUPERVISOR, JASON D 785.1 Palpitations 06/27/2012 GARTON QUARTER SUPERVISOR JASON D 786.05 Shortness Of Breath 06/27/2012 GARTON QUARTER SUPERVISOR, JASON D 786.50 Chest Pain 06/27/2012 GARTON QUARTER SUPERVISOR, JASON D 785.1 Palpitations 06/27/2012 GARTON QUARTER SUPERVISOR JASON D 786.05 Shortness Of Breath 06/27/2012 GARTON QUARTER SUPERVISOR JASON D 786.50 Chest Pain 06/27/2012 GARTON QUARTER SUPERVISOR JASON D 785.1 Palpitations 06/27/2012 GARTON QUARTER SUPERVISOR JASON D 786.05 Shortness Of Breath 06/27/2012 GARTON QUARTER SUPERVISOR JASON D 786.50 Chest Pain 06/27/2012 WOLF JAMA MD 785.1 Palpitations 06/27/2012 WOLF JAMA MD 786.0 5 Shortness Of Breath 06/27/2012 WOLF JAMA MD 786.5 0 Chest Pain 06/27/2012 ROEL QUARTER SUPERVISOR, GODWIN 785 .1 Palpitations 06/27/2012 ROEL QUARTER SUPERVISOR, GODWIN 786 .05 Shortness Of Breath 06/27/2012 ROEL QUARTER SUPERVISOR, GODWIN 786 .50 Chest Pain 06/27/2012 MADL QUARTER SUPERVISOR, FLO L 785 .1 Palpitations 06/27/2012 MADL QUARTER SUPERVISOR, FLO L 786 .05 Shortness Of Breath 06/27/2012 MADL QUARTER SUPERVISOR, FLO L 786 .50 Chest Pain 06/27/2012 ROEL QUARTER SUPERVISOR, GODWIN 785 .1 Palpitations 06/27/2012 ROEL QUARTER SUPERVISOR, GODWIN 786 .05 Shortness Of Breath 06/27/2012 ROEL QUARTER SUPERVISOR, GODWIN 786 .50 Chest Pain 06/27/2012 MADL QUARTER SUPERVISOR, FLO L 785 .1 Palpitations 06/27/2012 MADL QUARTER SUPERVISOR, FLO L 786 .05 Shortness Of Breath 06/27/2012 MADL QUARTER SUPERVISOR, FLO L 786 .50 Chest Pain 06/27/2012 ROEL QUARTER SUPERVISOR, GODWIN 785 .1 Palpitations 06/27/2012 ROEL QUARTER SUPERVISOR, GODWIN 786 .05 Shortness Of Breath 06/27/2012 ROEL QUARTER SUPERVISOR, GODWIN 786 .50 Chest Pain 06/27/2012 ROEL QUARTER SUPERVISOR, GODWIN 785 .1 Palpitations 06/27/2012 ROEL QUARTER SUPERVISOR, GODWIN 786 .05 Shortness Of Breath 06/27/2012 ROEL QUARTER SUPERVISOR, GODWIN 786 .50 Chest Pain 06/27/2012 MADL QUARTER SUPERVISOR, FLO L 785 .1 Palpitations 06/27/2012 MADL QUARTER SUPERVISOR, FLO L 786 .05 Shortness Of Breath 06/27/2012 MADL QUARTER SUPERVISOR, FLO L 786 .50 Chest Pain 06/27/2012 MADL QUARTER SUPERVISOR, FLO L 785 .1 Palpitations 06/27/2012 MADL QUARTER SUPERVISOR, FLO L 786 .05 Shortness Of Breath 06/27/2012 MADL QUARTER SUPERVISOR, FLO L 786 .50 Chest Pain 06/27/2012 ROEL QUARTER SUPERVISOR, GODWIN 785 .1 Palpitations 06/27/2012 ROEL QUARTER SUPERVISOR, GODWIN 786 .05 Shortness Of Breath 06/27/2012 ROEL QUARTER SUPERVISOR, OGDWIN 786 .50 Chest Pain 06/27/2012 SONNY QUARTER SUPERVISOR, ELIAS A 78 5.1 Palpitations 06/27/2012 SONNY QUARTER SUPERVISOR, ELIAS A 786.05 Shortness Of Breath 06/27/2012 SONNY QUARTER SUPERVISOR, ELIAS A 786.50 Chest Pain 06/27/2012 [facility], DEMOND R 785.1 Palpitations 06/27/2012 [facility] 786.05 Shortness Of Breath 06/27/2012 [facility], DEMOND R 786.50 Chest Pain 06/27/2012 MADL QUARTER SUPERVISOR, FLO L 785 .1 Palpitations 06/27/2012 MADL QUARTER SUPERVISOR, FLO L 786 .05 Shortness Of Breath 06/27/2012 MADL QUARTER SUPERVISOR, FLO Alfred 786 .50 Chest Pain 06/27/2012 SILVERIO DDS, [...] DEMOND R 786.50 Chest Pain 06/27/2012 ROEL QUARTER SUPERVISOR, GODWIN 785 .1 Palpitations 06/27/2012 ROEL QUARTER SUPERVISOR, GODWIN 786 .05 Shortness Of Breath 06/27/2012 ROEL QUARTER SUPERVISOR, GODWIN 786 .50 Chest Pain 06/27/2012 MANUEL DO, NICOLA K 785.1 Palpitations 06/27/2012 MANUEL DO, NICOLA K 786.05 Shortness Of Breath 06/27/2012 MANUEL DO, NICOLA K 786.50 Chest Pain 06/27/2012 ROEL QUARTER SUPERVISOR, GODWIN 785 .1 Palpitations 06/27/2012 ROEL QUARTER SUPERVISOR, GODWIN 786 .05 Shortness Of Breath 06/27/2012 ROEL QUARTER SUPERVISOR, GODWIN 786 .50 Chest Pain 06/27/2012 ROEL QUARTER SUPERVISOR, GODWIN 785 .1 Palpitations 06/27/2012 ROEL QUARTER SUPERVISOR, GODWIN 786 .05 Shortness Of Breath 06/27/2012 ROEL QUARTER SUPERVISOR, GODWIN 786 .50 Chest Pain 08/07/2012 WOLF [...] K 617.9 ENDOMETRIOSIS SITE UNSPECIFIED 08/07/2012 MANUEL DONICOLA K 625.9 Pelvic Pain 08/07/2012 NICOLA MANUEL DO V05.3 Hep B (adult) Dx 08/07/2012 NICOLA MANUEL DO V76.2 Cervical Cancer Screening (pap Smear) 08/07/2012 JASON SOLANO DO 617 .9 ENDOMETRIOSIS SITE UNSPECIFIED 08/07/2012 JASON SOLANO DO 625 .9 Pelvic Pain 08/07/2012 JASON SOLANO DO V05 .3 Hep B (adult) Dx 08/07/2012 JASON SOLANO DO V76 .2 Cervical Cancer [...] ENDOMETRIOSIS SITE UNSPECIFIED 08/07/2012 NICOLA MANUEL DO K 625.9 Pelvic Pain 08/07/2012 NICOLA MANUEL DO V05.3 Hep B (adult) Dx 08/07/2012 NICOLA MANUEL DO V76.2 Cervical Cancer Screening (pap Smear) 08/07/2012 WHITE DDS, KELY J 61 7.9 ENDOMETRIOSIS SITE UNSPECIFIED 08/07/2012 WHITE DDS, KELY J 62 5.9 Pelvic Pain 08/07/2012 WHITE DDS, KELY J V0 5.3 Hep B (adult) Dx 08/07/2012 WHITE DDS, KELY J V7 6.2 Cervical [...] Cervical Cancer Screening (pap Smear) 08/07/2012 ROEL MENG GODWIN 617 .9 ENDOMETRIOSIS SITE UNSPECIFIED 08/07/2012 ROEL QUARTER SUPERVISOR, GODWIN 625 .9 Pelvic Pain 08/07/2012 ROEL QUARTER SUPERVISOR, GODWIN V05 .3 Hep B (adult) Dx 08/07/2012 ROEL QUARTER SUPERVISOR, GODWIN V76 .2 Cervical Cancer Screening (pap Smear) 08/07/2012 MADL QUARTER SUPERVISOR, FLO L 617 .9 ENDOMETRIOSIS SITE UNSPECIFIED 08/07/2012 MADL QUARTER SUPERVISOR, FLO L 625 .9 Pelvic Pain 08/07/2012 MADL QUARTER SUPERVISOR, FLO L V05 .3 Hep B (adult) Dx 08/07/2012 MADL QUARTER SUPERVISOR, FLO L V76 .2 Cervical Cancer Screening (pap Smear) 08/07/2012 ROEL QUARTER SUPERVISOR, GODWIN 617 .9 ENDOMETRIOSIS SITE UNSPECIFIED 08/07/2012 ROEL QUARTER SUPERVISOR, GODWIN 625 .9 Pelvic Pain 08/07/2012 ROEL QUARTER SUPERVISOR, GODWIN V05 .3 Hep B (adult) Dx 08/07/2012 ROEL QUARTER SUPERVISOR, GODWIN V76 .2 Cervical Cancer Screening (pap Smear) 08/07/2012 MADL QUARTER SUPERVISOR, FLO L 617 .9 ENDOMETRIOSIS SITE UNSPECIFIED 08/07/2012 MADL QUARTER SUPERVISOR, FLO L 625 .9 Pelvic Pain 08/07/2012 MADL QUARTER SUPERVISOR, FLO L V05 .3 Hep B (adult) Dx 08/07/2012 MADL QUARTER SUPERVISOR, FLO L V76 .2 Cervical Cancer Screening (pap Smear) 08/07/2012 ROEL QUARTER SUPERVISOR, GODWIN 617 .9 ENDOMETRIOSIS SITE UNSPECIFIED 08/07/2012 ROEL QUARTER SUPERVISOR, OGDWIN 625 .9 Pelvic Pain 08/07/2012 ROEL QUARTER SUPERVISOR, GODWIN V05 .3 Hep B (adult) Dx 08/07/2012 ROEL QUARTER SUPERVISOR, GODWIN V76 .2 Cervical Cancer Screening (pap Smear) 08/07/2012 ROEL QUARTER SUPERVISOR, GODWIN 617 .9 ENDOMETRIOSIS SITE UNSPECIFIED 08/07/2012 ROEL QUARTER SUPERVISOR, GODWIN 625 .9 Pelvic Pain 08/07/2012 ROEL QUARTER SUPERVISOR, GODWIN V05 .3 Hep B (adult) Dx 08/07/2012 ROEL QUARTER SUPERVISOR, GODWIN V76 .2 Cervical Cancer Screening (pap Smear) 08/07/2012 MADL QUARTER SUPERVISOR, FLO L 617 .9 ENDOMETRIOSIS SITE UNSPECIFIED 08/07/2012 MADL QUARTER SUPERVISOR, FLO L 625 .9 Pelvic Pain 08/07/2012 MADL QUARTER SUPERVISOR, FLO L V05 .3 Hep B (adult) Dx 08/07/2012 MADL QUARTER SUPERVISOR, FLO L V76 .2 Cervical Cancer Screening (pap Smear) 08/07/2012 MADL QUARTER SUPERVISOR, FLO L 617 .9 ENDOMETRIOSIS SITE UNSPECIFIED 08/07/2012 MADL QUARTER SUPERVISOR, FLO L 625 .9 Pelvic Pain 08/07/2012 MADL QUARTER SUPERVISOR, FLO L V05 .3 Hep B (adult) Dx 08/07/2012 MADL QUARTER SUPERVISOR, FLO L V76 .2 Cervical Cancer Screening (pap Smear) 08/07/2012 ROEL QUARTER SUPERVISOR, GODWIN 617 .9 ENDOMETRIOSIS SITE UNSPECIFIED 08/07/2012 ROEL QUARTER SUPERVISOR, GODWIN 625 .9 Pelvic Pain 08/07/2012 ROEL QUARTER SUPERVISOR, GODWIN V05 .3 Hep B (adult) Dx 08/07/2012 ROEL QUARTER SUPERVISOR, GODWIN V76 .2 Cervical Cancer Screening (pap Smear) 08/07/2012 SONNY QUARTER SUPERVISOR, ELIAS A 61 7.9 ENDOMETRIOSIS SITE UNSPECIFIED 08/07/2012 SONNY QUARTER SUPERVISOR, ELIAS A 62 5.9 Pelvic Pain 08/07/2012 SONNY QUARTER SUPERVISOR, ELIAS A V0 5.3 Hep B (adult) Dx 08/07/2012 SONNY QUARTER SUPERVISOR, ELIAS A V7 6.2 Cervical Cancer Screening (pap Smear) 08/07/2012 ANGELA LSCS, DEMOND R 617.9 ENDOMETRIOSIS SITE UNSPECIFIED 08/07/2012 ANGELA LSCS, DEMOND R 625.9 Pelvic Pain 08/07/2012 ANGELA LSCS, DEMOND R V05.3 Hep B (adult) Dx 08/07/2012 ANGELA LSCS, DEMOND R V76.2 Cervical Cancer Screening (pap Smear) 08/07/2012 MADL QUARTER SUPERVISOR, FLO L 617 .9 ENDOMETRIOSIS SITE UNSPECIFIED 08/07/2012 MADL QUARTER SUPERVISOR, FLO L 625 .9 Pelvic Pain 08/07/2012 MADL QUARTER SUPERVISOR, FLO L V05 .3 Hep B (adult) Dx 08/07/2012 MADL QUARTER SUPERVISOR, FLO L V76 .2 Cervical Cancer Screening (pap Smear) 08/07/2012 SILVERIO DDS, JOSE 61 7.9 ENDOMETRIOSIS SITE UNSPECIFIED 08/07/2012 SILVERIO DDS, JOSE 62 5.9 Pelvic Pain 08/07/2012 SILVERIO DDS, JOSE V0 5.3 Hep B (adult) Dx 08/07/2012 SILVERIO DDS, JOSE V7 6.2 Cervical Cancer Screening (pap Smear) 08/07/2012 ANGELA LSCS, DEMOND R 617.9 ENDOMETRIOSIS SITE UNSPECIFIED 08/07/2012 ANGELA LSCS, DEMOND R 625.9 Pelvic Pain 08/07/2012 ANGELA LSCS, DEMOND R V05.3 Hep B (adult) Dx 08/07/2012 ANGELA LSCS, DEMOND R V76.2 Cervical Cancer Screening (pap Smear) 08/07/2012 ANGELA LSCS, DEMOND R 617.9 ENDOMETRIOSIS SITE UNSPECIFIED 08/07/2012 ANGELA LSCS, DEMOND R 625.9 Pelvic Pain 08/07/2012 ANGELA LSCS, DEMOND R V05.3 Hep B (adult) Dx 08/07/2012 [facility], DEMOND R V76.2 Cervical Cancer Screening (pap Smear) 08/07/2012 ROEL QUARTER SUPERVISOR, GODWIN 617 .9 ENDOMETRIOSIS SITE UNSPECIFIED 08/07/2012 ROEL QUARTER SUPERVISOR, GODWIN 625 .9 Pelvic Pain 08/07/2012 ROEL QUARTER SUPERVISOR, GODWIN V05 .3 Hep B (adult) Dx 08/07/2012 ROEL QUARTER SUPERVISOR, GODWIN V76 .2 Cervical Cancer Screening (pap Smear) 08/07/2012 MANUEL DOMARALA K 617.9 ENDOMETRIOSIS SITE UNSPECIFIED 08/07/2012 MANUEL DO, NICOLA K 625.9 Pelvic Pain 08/07/2012 MANUEL DOMARALA K V05.3 Hep B (adult) Dx 08/07/2012 MANUEL DO, NICOLA K V76.2 Cervical Cancer Screening (pap Smear) 08/07/2012 ROEL QUARTER SUPERVISOR, GODWIN 617 .9 ENDOMETRIOSIS SITE UNSPECIFIED 08/07/2012 ROEL QUARTER SUPERVISOR, GODWIN 625 .9 Pelvic Pain 08/07/2012 ROEL QUARTER SUPERVISOR, GODWIN V05 .3 Hep B (adult) Dx 08/07/2012 ROEL QUARTER SUPERVISOR, GODWIN V76 .2 Cervical Cancer Screening (pap Smear) 08/07/2012 ROEL QUARTER SUPERVISOR, GODWIN 617 .9 ENDOMETRIOSIS SITE UNSPECIFIED 08/07/2012 ROEL QUARTER SUPERVISOR, GODWIN 625 .9 Pelvic Pain 08/07/2012 ROEL QUARTER SUPERVISOR, GODWIN V05 .3 Hep B (adult) Dx 08/07/2012 ROEL QUARTER SUPERVISOR, GOWDIN V76 .2 Cervical Cancer Screening (pap Smear) [...] NONINFECTIOUS GASTROENTERITIS AND COLITIS 09/28/2012 IDALIA JENKINSSKELY 55 8.9 OTHER AND UNSPECIFIED NONINFECTIOUS GASTROENTERITIS [...] UNSPECIFIED NONINFECTIOUS GASTROENTERITIS AND COLITIS 09/28/2012 ROEL QUARTER SUPERVISOR, GODWIN 558 .9 OTHER AND UNSPECIFIED NONINFECTIOUS GASTROENTERITIS AND COLITIS 09/28/2012 MADL QUARTER SUPERVISOR, FLO L 558 .9 OTHER AND UNSPECIFIED NONINFECTIOUS GASTROENTERITIS AND COLITIS 09/28/2012 ROEL QUARTER SUPERVISOR, GODWIN 558 .9 OTHER AND UNSPECIFIED NONINFECTIOUS GASTROENTERITIS AND COLITIS 09/28/2012 ROEL QUARTER SUPERVISOR, GODWIN 558 .9 OTHER AND UNSPECIFIED NONINFECTIOUS GASTROENTERITIS AND COLITIS 09/28/2012 MADL QUARTER SUPERVISOR, FLO L 558 .9 OTHER AND UNSPECIFIED NONINFECTIOUS GASTROENTERITIS AND COLITIS 09/28/2012 MADL QUARTER SUPERVISOR, FLO L 558 .9 OTHER AND UNSPECIFIED NONINFECTIOUS GASTROENTERITIS AND COLITIS 09/28/2012 ROEL QUARTER SUPERVISOR, GODWIN 558 .9 OTHER AND UNSPECIFIED NONINFECTIOUS GASTROENTERITIS AND COLITIS 09/28/2012 ELIAS DENNIS APRN A 55 8.9 OTHER AND UNSPECIFIED NONINFECTIOUS GASTROENTERITIS AND COLITIS 09/28/2012 [facility], DEMOND R 558.9 OTHER AND UNSPECIFIED NONINFECTIOUS GASTROENTERITIS AN D COLITIS 09/28/2012 MADL QUARTER SUPERVISOR, FLO L 558 .9 OTHER AND UNSPECIFIED NONINFECTIOUS GASTROENTERITIS AND COLITIS 09/28/2012 JOSE SILVERIO DDS 55 8.9 OTHER AND UNSPECIFIED NONINFECTIOUS GASTROENTERITIS AND COLITIS 09/28/2012 [facility], DEMOND R 558.9 OTHER AND UNSPECIFIED NONINFECTIOUS GASTROENTERITIS AN D COLITIS 09/28/2012 [facility], DEMOND R 558.9 OTHER AND UNSPECIFIED NONINFECTIOUS GASTROENTERITIS AN D COLITIS 09/28/2012 ROEL QUARTER SUPERVISOR, GODWIN 558 .9 OTHER AND UNSPECIFIED NONINFECTIOUS GASTROENTERITIS AND COLITIS 09/28/2012 NICOLA MANUEL DO 558.9 OTHER AND UNSPECIFIED NONINFECTIOUS GASTROENTERITIS AND COLITIS 09/28/2012 ROEL QUARTER SUPERVISOR, GODWIN 558 .9 OTHER AND UNSPECIFIED NONINFECTIOUS GASTROENTERITIS AND COLITIS 09/28/2012 ROEL QUARTER SUPERVISOR, GODWIN 558 .9 OTHER AND UNSPECIFIED NONINFECTIOUS [...] WOLF JAMA MD 626.0 AMENORRHEA 11/29/2012 ROEL QUARTER SUPERVISOR, GODWIN 626 .0 AMENORRHEA 11/29/2012 LISA MENG FLO L 626 .0 AMENORRHEA 11/29/2012 ROEL QUARTER SUPERVISOR, GODWIN 626 .0 AMENORRHEA 11/29/2012 MADL QUARTER SUPERVISOR, FLO L 626 .0 AMENORRHEA 11/29/2012 ROEL QUARTER SUPERVISOR, GODWIN 626 .0 AMENORRHEA 11/29/2012 ROEL QUARTER SUPERVISOR, GODWIN 626 .0 AMENORRHEA 11/29/2012 LISA QUARTER SUPERVISOR, FLO L 626 .0 AMENORRHEA 11/29/2012 MADL QUARTER SUPERVISOR, FLO L 626 .0 AMENORRHEA 11/29/2012 ROEL QUARTER SUPERVISOR, GODWIN 626 .0 AMENORRHEA 11/29/2012 ELIAS DENNIS APRN 62 6.0 AMENORRHEA 11/29/2012 [facility], DEMOND R 626.0 AMENORRHEA 11/29/2012 FLO GONZALEZ APRN 626 .0 AMENORRHEA 11/29/2012 NUSRAT JENKINSS, JOSE 62 6.0 AMENORRHEA 11/29/2012 [facility], DEMOND R 626.0 AMENORRHEA 11/29/2012 [facility], DEMOND R 626.0 AMENORRHEA 11/29/2012 ROEL QUARTER SUPERVISOR, GODWIN 626 .0 AMENORRHEA 11/29/2012 NICOLA MANUEL DO K 626.0 AMENORRHEA 11/29/2012 ROEL QUARTER SUPERVISOR, GODWIN 626 .0 AMENORRHEA 11/29/2012 ROEL QUARTER SUPERVISOR, GODWIN 626 .0 AMENORRHEA 12/08/2012 Ot 723.1 CERV ICALGIA 12/08/2012 Ot 723.4 [facility] HIAL NEURITIS NOS 12/11/2012 Ot 723.1 CERV [...] CANCER SCREENING (PAP SMEAR) 01/16/2013 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 01/16/2013 626.1 OLIG OMENORRHEA 01/16/2013 V73.81 HPV SCREENING 01/16/2013 V74.5 STD SCREEN 01/16/2013 V76.2 CERV ICAL CANCER SCREENING (PAP SMEAR) 01/16/2013 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 01/16/2013 626.1 OLIG OMENORRHEA 01/16/2013 V73.81 HPV SCREENING 01/16/2013 V74.5 STD SCREEN 01/16/2013 V76.2 CERV ICAL CANCER SCREENING (PAP SMEAR) 01/16/2013 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 01/16/2013 626.1 OLIG OMENORRHEA 01/16/2013 V73.81 HPV SCREENING 01/16/2013 V74.5 STD SCREEN 01/16/2013 V76.2 CERV ICAL CANCER SCREENING (PAP SMEAR) 01/16/2013 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 01/16/2013 626.1 OLIG OMENORRHEA 01/16/2013 V73.81 HPV SCREENING 01/16/2013 V74.5 STD SCREEN 01/16/2013 V76.2 CERV ICAL CANCER SCREENING (PAP SMEAR) 01/16/2013 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 01/16/2013 626.1 OLIG OMENORRHEA 01/16/2013 V73.81 HPV SCREENING 01/16/2013 V74.5 STD SCREEN 01/16/2013 V76.2 CERV ICAL CANCER SCREENING (PAP SMEAR) 01/16/2013 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 01/16/2013 626.1 OLIG OMENORRHEA 01/16/2013 V73.81 HPV SCREENING 01/16/2013 V74.5 STD SCREEN 01/16/2013 V76.2 CERV ICAL CANCER SCREENING (PAP SMEAR) 01/16/2013 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 01/16/2013 626.1 OLIG OMENORRHEA 01/16/2013 V73.81 HPV SCREENING 01/16/2013 V74.5 STD SCREEN 01/16/2013 V76.2 CERV ICAL CANCER SCREENING (PAP SMEAR) 01/16/2013 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 01/16/2013 626.1 OLIG OMENORRHEA 01/16/2013 V73.81 HPV SCREENING 01/16/2013 V74.5 STD SCREEN 01/16/2013 V76.2 CERV ICAL CANCER SCREENING (PAP SMEAR) 01/16/2013 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 01/16/2013 626.1 OLIG OMENORRHEA 01/16/2013 V73.81 HPV SCREENING 01/16/2013 V74.5 STD SCREEN 01/16/2013 V76.2 CERV ICAL CANCER SCREENING (PAP SMEAR) 01/16/2013 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 01/16/2013 626.1 OLIG OMENORRHEA 01/16/2013 V73.81 HPV SCREENING 01/16/2013 V74.5 STD SCREEN 01/16/2013 V76.2 CERV ICAL CANCER SCREENING (PAP SMEAR) 01/16/2013 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 01/16/2013 626.1 OLIG OMENORRHEA 01/16/2013 V73.81 [...] NICOLA MANUEL DO V73.81 HPV SCREENING 01/16/2013 MANUEL DO, NICOLA K V74.5 STD SCREEN 01/16/2013 MANUEL DONICOLA K V76.2 CERVICAL CANCER SCREENING (PAP SMEAR) 01/16/2013 WHITE DDS, KELY J 30 5.1 TOBACCO ABUSE 01/16/2013 WHITE DDS, KELY J 62 6.1 OLIGOMENORRHEA 01/16/2013 WHITE DDS, KELY J V73.81 HPV SCREENING 01/16/2013 WHITE DDS, KELY J V7 4.5 STD SCREEN 01/16/2013 WHITE DDS, KELY J V7 6.2 CERVICAL CANCER SCREENING [...] CERVICAL CANCER SCREENING (PAP SMEAR) 01/16/2013 ROEL QUARTER SUPERVISOR, GODWIN 305 .1 TOBACCO ABUSE 01/16/2013 ROEL QUARTER SUPERVISOR, GODWIN 626 .1 OLIGOMENORRHEA 01/16/2013 ROEL QUARTER SUPERVISOR, GODWIN V73 .81 HPV SCREENING 01/16/2013 ROEL QUARTER SUPERVISOR, GODWIN V74 .5 STD SCREEN 01/16/2013 ROEL QUARTER SUPERVISOR, GODWIN V76 .2 CERVICAL CANCER SCREENING (PAP SMEAR) 01/16/2013 MADL QUARTER SUPERVISOR, FLO L 305 .1 TOBACCO ABUSE 01/16/2013 MAD QUARTER SUPERVISOR, FLO L 626 .1 OLIGOMENORRHEA 01/16/2013 MAD QUARTER SUPERVISOR, FLO L V73 .81 HPV SCREENING 01/16/2013 BRYAN QUARTER SUPERVISOR, FLO L V74 .5 STD SCREEN 01/16/2013 BRYAN QUARTER SUPERVISOR, FLO L V76 .2 CERVICAL CANCER SCREENING (PAP SMEAR) 01/16/2013 ROEL QUARTER SUPERVISOR, GODWIN 305 .1 TOBACCO ABUSE 01/16/2013 ROEL QUARTER SUPERVISOR, GODWIN 626 .1 OLIGOMENORRHEA 01/16/2013 ROEL QUARTER SUPERVISOR, GODWIN V73 .81 HPV SCREENING 01/16/2013 ROEL QUARTER SUPERVISOR, GODWIN V74 .5 STD SCREEN 01/16/2013 ROEL QUARTER SUPERVISOR, GODWIN V76 .2 CERVICAL CANCER SCREENING (PAP SMEAR) 01/16/2013 LISA QUARTER SUPERVISOR, FLO L 305 .1 TOBACCO ABUSE 01/16/2013 MADL QUARTER SUPERVISOR, FLO L 626 .1 OLIGOMENORRHEA 01/16/2013 MADL QUARTER SUPERVISOR, FLO L V73 .81 HPV SCREENING 01/16/2013 MADTima QUARTER SUPERVISOR, FLO L V74 .5 STD SCREEN 01/16/2013 MADL QUARTER SUPERVISOR, FLO L V76 .2 CERVICAL CANCER SCREENING (PAP SMEAR) 01/16/2013 ROEL QUARTER SUPERVISOR, GODWIN 305 .1 TOBACCO ABUSE 01/16/2013 ROEL QUARTER SUPERVISOR, GODWIN 626 .1 OLIGOMENORRHEA 01/16/2013 ROEL QUARTER SUPERVISOR, GODWIN V73 .81 HPV SCREENING 01/16/2013 REOL QUARTER SUPERVISOR, GODWIN V74 .5 STD SCREEN 01/16/2013 ROEL QUARTER SUPERVISOR, GODWIN V76 .2 CERVICAL CANCER SCREENING (PAP SMEAR) 01/16/2013 ROEL QUARTER SUPERVISOR, GODWIN 305 .1 TOBACCO ABUSE 01/16/2013 ROEL QUARTER SUPERVISOR, GODWIN 626 .1 OLIGOMENORRHEA 01/16/2013 ROEL QUARTER SUPERVISOR, GODWIN V73 .81 HPV SCREENING 01/16/2013 ROEL QUARTER SUPERVISOR, GODWIN V74 .5 STD SCREEN 01/16/2013 ROEL QUARTER SUPERVISOR, GODWIN V76 .2 CERVICAL CANCER SCREENING (PAP SMEAR) 01/16/2013 MAD QUARTER SUPERVISOR, FLO L 305 .1 TOBACCO ABUSE 01/16/2013 MAD QUARTER SUPERVISOR, FLO L 626 .1 OLIGOMENORRHEA 01/16/2013 MAD QUARTER SUPERVISOR, FLO L V73 .81 HPV SCREENING 01/16/2013 BRYAN QUARTER SUPERVISOR, FLO L V74 .5 STD SCREEN 01/16/2013 BRYAN QUARTER SUPERVISOR, FLO L V76 .2 CERVICAL CANCER SCREENING (PAP SMEAR) 01/16/2013 MAD QUARTER SUPERVISOR, FLO L 305 .1 TOBACCO ABUSE 01/16/2013 MAD QUARTER SUPERVISOR, FLO L 626 .1 OLIGOMENORRHEA 01/16/2013 MAD QUARTER SUPERVISOR, FLO L V73 .81 HPV SCREENING 01/16/2013 BRYAN QUARTER SUPERVISOR, FLO L V74 .5 STD SCREEN 01/16/2013 [facility] QUARTER SUPERVISOR, FLO L V76 .2 CERVICAL CANCER SCREENING (PAP SMEAR) 01/16/2013 ROEL QUARTER SUPERVISOR, GODWIN 305 .1 TOBACCO ABUSE 01/16/2013 ROEL QUARTER SUPERVISOR, GODWIN 626 .1 OLIGOMENORRHEA 01/16/2013 ROEL QUARTER SUPERVISOR, GODWIN V73 .81 HPV SCREENING 01/16/2013 ROEL QUARTER SUPERVISOR, GODWIN V74 .5 STD SCREEN 01/16/2013 ROEL QUARTER SUPERVISOR, GODWIN V76 .2 CERVICAL CANCER SCREENING (PAP SMEAR) 01/16/2013 SONNY QUARTER SUPERVISOR, ELIAS A 30 5.1 TOBACCO ABUSE 01/16/2013 SONNY QUARTER SUPERVISOR, ELIAS A 62 6.1 OLIGOMENORRHEA 01/16/2013 SONNY QUARTER SUPERVISOR, ELIAS A V73.81 HPV SCREENING 01/16/2013 SONNY QUARTER SUPERVISOR, ELIAS A V7 4.5 STD SCREEN 01/16/2013 SONNY QUARTER SUPERVISOR, ELIAS A V7 6.2 CERVICAL CANCER SCREENING (PAP SMEAR) 01/16/2013 [facility], DEMOND R 305.1 TOBACCO ABUSE 01/16/2013 [facility], DEMOND R 626.1 OLIGOMENORRHEA 01/16/2013 [facility], DEMOND R V73.81 HPV SCREENING 01/16/2013 [facility], DEMOND R V74.5 STD SCREEN 01/16/2013 [facility], DEMOND R V76.2 CERVICAL CANCER SCREENING (PAP SMEAR) 01/16/2013 MADL QUARTER SUPERVISOR, FLO L 305 .1 TOBACCO ABUSE 01/16/2013 MADL QUARTER SUPERVISOR, FLO L 626 .1 OLIGOMENORRHEA 01/16/2013 MADL QUARTER SUPERVISOR, FLO L V73 .81 HPV SCREENING 01/16/2013 MADL QUARTER SUPERVISOR, FLO L V74 .5 STD SCREEN 01/16/2013 MADL QUARTER SUPERVISOR, FLO L V76 .2 CERVICAL CANCER SCREENING (PAP SMEAR) 01/16/2013 SILVERIO DDS, JOSE 30 5.1 TOBACCO ABUSE 01/16/2013 SILVERIO DDS, JOSE 62 6.1 OLIGOMENORRHEA 01/16/2013 SILVERIO DDS, JOSE V73.81 HPV SCREENING 01/16/2013 SILVERIO DDS, JOSE V7 4.5 STD SCREEN 01/16/2013 SILVERIO DDS, JOSE V7 6.2 CERVICAL CANCER SCREENING (PAP SMEAR) 01/16/2013 [facility], DEMOND R 305.1 TOBACCO ABUSE 01/16/2013 [facility], DEMOND R 626.1 OLIGOMENORRHEA 01/16/2013 [facility], DEMOND R V73.81 HPV SCREENING 01/16/2013 [facility], DEMOND R V74.5 STD SCREEN 01/16/2013 [facility], DEMOND R V76.2 CERVICAL CANCER SCREENING (PAP SMEAR) 01/16/2013 [facility], DEMOND R 305.1 TOBACCO ABUSE 01/16/2013 [facility], DEMOND R 626.1 OLIGOMENORRHEA 01/16/2013 [facility], DEMOND R V73.81 HPV SCREENING 01/16/2013 [facility], DEMOND R V74.5 STD SCREEN 01/16/2013 [facility], DEMOND R V76.2 CERVICAL CANCER SCREENING (PAP SMEAR) 01/16/2013 ROEL QUARTER SUPERVISOR, GODWIN 305 .1 TOBACCO ABUSE 01/16/2013 ROEL QUARTER SUPERVISOR, GODWIN 626 .1 OLIGOMENORRHEA 01/16/2013 ROEL QUARTER SUPERVISOR, GODWIN V73 .81 HPV SCREENING 01/16/2013 ROEL QUARTER SUPERVISOR, GODWIN V74 .5 STD SCREEN 01/16/2013 ROEL QUARTER SUPERVISOR, GODWIN V76 .2 CERVICAL CANCER SCREENING (PAP SMEAR) 01/16/2013 NICOLA MANUEL DO 305.1 TOBACCO ABUSE 01/16/2013 NICOLA MANUEL DO K 626.1 OLIGOMENORRHEA 01/16/2013 NICOLA MANUEL DO K V73.81 HPV SCREENING 01/16/2013 NICOLA MANUEL DO V74.5 STD SCREEN 01/16/2013 NICOLA MANUEL DO K V76.2 CERVICAL CANCER SCREENING (PAP SMEAR) 01/16/2013 ROEL QUARTER SUPERVISOR, GODWIN 305 .1 TOBACCO ABUSE 01/16/2013 ROEL QUARTER SUPERVISOR, GODWIN 626 .1 OLIGOMENORRHEA 01/16/2013 ROEL QUARTER SUPERVISOR, GODWIN V73 .81 HPV SCREENING 01/16/2013 ROEL QUARTER SUPERVISOR, GODWIN V74 .5 STD SCREEN 01/16/2013 ROEL QUARTER SUPERVISOR, GODWIN V76 .2 CERVICAL CANCER SCREENING (PAP SMEAR) 01/16/2013 ROEL QUARTER SUPERVISOR, GODWIN 305 .1 TOBACCO ABUSE 01/16/2013 ROEL QUARTER SUPERVISOR, GODWIN 626 .1 OLIGOMENORRHEA 01/16/2013 ROEL QUARTER SUPERVISOR, GODWIN V73 .81 HPV SCREENING 01/16/2013 ROEL QUARTER SUPERVISOR, GODWIN V74 .5 STD SCREEN 01/16/2013 ROEL QUARTER SUPERVISOR, GODWIN V76 .2 CERVICAL CANCER SCREENING (PAP [...] 296.90 MOO D DISORDER NOS 01/24/2013 MANUEL NICOLA BLANTON K 296.90 MOOD DISORDER NOS 01/24/2013 JASON HUNTER APRN D 296.90 MOOD DISORDER NOS 01/24/2013 WOLF JAMA MD 296.9 0 MOOD DISORDER NOS 01/24/2013 MANUEL NICOLA BLANTON K 296.90 MOOD DISORDER NOS 01/24/2013 KELY FRIEDMAN DDS 296.90 MOOD DISORDER NOS 01/24/2013 KEITH HUNTER APRNTH D 296.90 MOOD DISORDER NOS 01/24/2013 KEITH HUNTER APRNTH D 296.90 MOOD DISORDER NOS 01/24/2013 GARAMAURY RENTERIA APRNZABETH D 296.90 MOOD DISORDER NOS 01/24/2013 WOLF JAMA MD 296.9 0 MOOD DISORDER NOS 01/24/2013 ROEL QUARTER SUPERVISOR, GODWIN 296 .90 MOOD DISORDER NOS 01/24/2013 MADL QUARTER SUPERVISOR, FLO L 296 .90 MOOD DISORDER NOS 01/24/2013 ROEL QUARTER SUPERVISOR, GODWIN 296 .90 MOOD DISORDER NOS 01/24/2013 MADL QUARTER SUPERVISOR, FLO L 296 .90 MOOD DISORDER NOS 01/24/2013 ROEL QUARTER SUPERVISOR, GODWIN 296 .90 MOOD DISORDER NOS 01/24/2013 ROEL QUARTER SUPERVISOR, GODWIN 296 .90 MOOD DISORDER NOS 01/24/2013 MADL QUARTER SUPERVISOR, FLO L 296 .90 MOOD DISORDER NOS 01/24/2013 MADL QUARTER SUPERVISOR, FLO L 296 .90 MOOD DISORDER NOS 01/24/2013 ROEL QUARTER SUPERVISOR, GODWIN 296 .90 MOOD DISORDER NOS 01/24/2013 SONNY QUARTER SUPERVISOR, ELIAS A 296.90 MOOD DISORDER NOS 01/24/2013 [facility]ORDER NOS 01/24/2013 FLO GONZALEZ APRN 296 .90 MOOD DISORDER NOS 01/24/2013 NUSRAT BAKER, JOSE 296.90 MOOD DISORDER NOS 01/24/2013 ANGELA [facility], DEMOND R 296.90 MOOD DISORDER NOS 01/24/2013 ANGELA [facility], DEMOND R 296.90 MOOD DISORDER NOS 01/24/2013 ROEL QUARTER SUPERVISOR, GODWIN 296 .90 MOOD DISORDER NOS 01/24/2013 NICOLA MANUEL DO 296.90 MOOD DISORDER NOS 01/24/2013 ROEL QUARTER SUPERVISOR, GODWIN 296 .90 MOOD DISORDER NOS 01/24/2013 ROEL QUARTER SUPERVISOR, GODWIN 296 .90 MOOD DISORDER NOS 02/13/2013 787.02 [...] JAMA MD 787.0 2 NAUSEA ALONE 02/13/2013 ROEL QUARTER SUPERVISOR, GODWIN 787 .02 NAUSEA ALONE 02/13/2013 FLO GONZALEZ APRN 787 .02 NAUSEA ALONE 02/13/2013 ROEL QUARTER SUPERVISOR, GODWIN 787 .02 NAUSEA ALONE 02/13/2013 MADL QUARTER SUPERVISOR, FLO L 787 .02 NAUSEA ALONE 02/13/2013 ROEL QUARTER SUPERVISOR, GODWIN 787 .02 NAUSEA ALONE 02/13/2013 ROEL QUARTER SUPERVISOR, GODWIN 787 .02 NAUSEA ALONE 02/13/2013 MADL QUARTER SUPERVISOR, FLO L 787 .02 NAUSEA ALONE 02/13/2013 MADL QUARTER SUPERVISOR, FLO L 787 .02 NAUSEA ALONE 02/13/2013 ROEL QUARTER SUPERVISOR, GODWIN 787 .02 NAUSEA ALONE 02/13/2013 SONNY QUARTER SUPERVISOR, ELIAS A 787.02 NAUSEA ALONE 02/13/2013 [facility], DEMOND R 787.02 NAUSEA ALONE 02/13/2013 MADL QUARTER SUPERVISOR, FLO L 787 .02 NAUSEA ALONE 02/13/2013 JOSE SILVERIO DDS 787.02 NAUSEA ALONE 02/13/2013 [facility], DEMOND R 787.02 NAUSEA ALONE 02/13/2013 [facility], DEMOND R 787.02 NAUSEA ALONE 02/13/2013 ROEL QUARTER SUPERVISOR, GODWIN 787 .02 NAUSEA ALONE 02/13/2013 NICOLA MANUEL DO K 787.02 NAUSEA ALONE 02/13/2013 ROEL QUARTER SUPERVISOR, GODWIN 787 .02 NAUSEA ALONE 02/13/2013 ROEL QUARTER SUPERVISOR, GODWIN 787 .02 NAUSEA ALONE 03/23/2013 309.81 AN PTSD 03/23/2013 309.81 AN PTSD 03/23/2013 309.81 AN PTSD 03/23/2013 309.81 AN PTSD 03/23/2013 309.81 AN PTSD 03/23/2013 309.81 AN PTSD 03/23/2013 309.81 AN PTSD 03/23/2013 NICOLA MANUEL DO 309.81 AN PTSD 03/23/2013 JASON HUNTER APRN 309.81 AN PTSD 03/23/2013 EVITA JONES, WOLF 309.8 1 AN PTSD 03/23/2013 NICOLA MANUEL DO 309.81 AN PTSD 03/23/2013 KELY FRIEDMAN DDS 309.81 AN PTSD 03/23/2013 JASON HUNTER APRN 309.81 AN PTSD 03/23/2013 JASON HUNTER APRN 309.81 AN PTSD 03/23/2013 JASON HUNTER APRN 309.81 AN PTSD 03/23/2013 EVITA JONES, WOLF 309.8 1 AN PTSD 03/23/2013 ROEL QUARTER SUPERVISOR, GODWIN 309 .81 AN PTSD 03/23/2013 MADL QUARTER SUPERVISOR, FLO L 309 .81 AN PTSD 03/23/2013 ROEL QUARTER SUPERVISOR, GODWIN 309 .81 AN PTSD 03/23/2013 MADL QUARTER SUPERVISOR, FLO L 309 .81 AN PTSD 03/23/2013 ROEL QUARTER SUPERVISOR, GODWIN 309 .81 AN PTSD 03/23/2013 ROEL QUARTER SUPERVISOR, GODWIN 309 .81 AN PTSD 03/23/2013 MADL QUARTER SUPERVISOR, FLO L 309 .81 AN PTSD 03/23/2013 MADL QUARTER SUPERVISOR, FLO L 309 .81 AN PTSD 03/23/2013 ROEL QUARTER SUPERVISOR, GODWIN 309 .81 AN PTSD 03/23/2013 SONNY QUARTER SUPERVISOR, ELIAS A 309.81 AN PTSD 03/23/2013 [facility], DEMOND R 309.81 AN PTSD 03/23/2013 MADL QUARTER SUPERVISOR, FLO L 309 .81 AN PTSD 03/23/2013 JOSE SILVERIO DDS 309.81 AN PTSD 03/23/2013 [facility], DEMOND R 309.81 AN PTSD 03/23/2013 [facility], DEMOND R 309.81 AN PTSD 03/23/2013 ROEL QUARTER SUPERVISOR, GODWIN 309 .81 AN PTSD 03/23/2013 NICOLA MANUEL DO 309.81 AN PTSD 03/23/2013 ROEL QUARTER SUPERVISOR, GODWIN 309 .81 AN PTSD 03/23/2013 ROEL QUARTER SUPERVISOR, GODWIN 309 .81 AN PTSD 04/20/2013 JESSIE ROBERTS MD Ot 427.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 04/20/2013 JESSIE ROBERTS MD Ot 785 .1 PALPITATIONS 04/26/2013 724.2 LUMB AGO/ LOW BACK PAIN 04/26/2013 724.2 LUMB AGO/ LOW BACK PAIN 04/26/2013 724.2 LUMB AGO/ LOW BACK PAIN 04/26/2013 724.2 LUMB AGO/ LOW BACK PAIN 04/26/2013 724.2 LUMB AGO/ LOW BACK PAIN 04/26/2013 MANUEL DO, NICOLA Workman 724.2 LUMBAGO/ LOW BACK PAIN 04/26/2013 JASON HUNTER APRN 724.2 LUMBAGO/ LOW BACK PAIN 04/26/2013 WOLF JAMA MD 724.2 LUMBAGO/ LOW BACK PAIN 04/26/2013 MANUEL DO, NICOLA K 724.2 LUMBAGO/ LOW BACK PAIN 04/26/2013 IDALIA JENKINSS, KELY Dickens 72 4.2 LUMBAGO/ LOW BACK PAIN 04/26/2013 DALE QUARTER SUPERVISORJASON Kirkpatrick 724.2 LUMBAGO/ LOW BACK PAIN 04/26/2013 DALE QUARTER SUPERVISORJASON Kirkpatrick 724.2 LUMBAGO/ LOW BACK PAIN 04/26/2013 JASON HUNTER APRN 724.2 LUMBAGO/ LOW BACK PAIN 04/26/2013 WOLF JAMA MD 724.2 LUMBAGO/ LOW BACK PAIN 04/26/2013 ROEL QUARTER SUPERVISOR, GODWIN 724 .2 LUMBAGO/ LOW BACK PAIN 04/26/2013 MADL QUARTER SUPERVISOR, FLO L 724 .2 LUMBAGO/ LOW BACK PAIN 04/26/2013 ROEL QUARTER SUPERVISOR, GODWIN 724 .2 LUMBAGO/ LOW BACK PAIN 04/26/2013 MADL QUARTER SUPERVISOR, FLO L 724 .2 LUMBAGO/ LOW BACK PAIN 04/26/2013 ROEL QUARTER SUPERVISOR, GODWIN 724 .2 LUMBAGO/ LOW BACK PAIN 04/26/2013 ROEL QUARTER SUPERVISOR, GODWIN 724 .2 LUMBAGO/ LOW BACK PAIN 04/26/2013 MADL QUARTER SUPERVISOR, FLO L 724 .2 LUMBAGO/ LOW BACK PAIN 04/26/2013 MADL QUARTER SUPERVISOR, FLO L 724 .2 LUMBAGO/ LOW BACK PAIN 04/26/2013 ROEL QUARTER SUPERVISOR, GODWIN 724 .2 LUMBAGO/ LOW BACK PAIN 04/26/2013 SONNY MENG, ELIAS Jordan 72 4.2 LUMBAGO/ LOW BACK PAIN 04/26/2013 [facility], DEMOND R 724.2 LUMBAGO/ LOW BACK PAIN 04/26/2013 MADL QUARTER SUPERVISOR, FLO Tima 724 .2 LUMBAGO/ LOW BACK PAIN 04/26/2013 JOSE SILVERIO DDS 72 4.2 LUMBAGO/ LOW BACK PAIN 04/26/2013 [facility], DEMOND R 724.2 LUMBAGO/ LOW BACK PAIN 04/26/2013 [facility], DEMOND R 724.2 LUMBAGO/ LOW BACK PAIN 04/26/2013 ROELGODWIN VARGAS APRN 724 .2 LUMBAGO/ LOW BACK PAIN 04/26/2013 MANUEL DONICOLA K 724.2 LUMBAGO/ LOW BACK PAIN 04/26/2013 ROEL TAQUERIA, GODWIN 724 .2 LUMBAGO/ LOW BACK PAIN 04/26/2013 GODWIN SEVILLA APRN 724 .2 LUMBAGO/ LOW BACK PAIN 04/29/2013 799.81 DEC REASED LIBIDO 04/29/2013 V26.9 PROC REATIVE MANAGEMENT 04/29/2013 799.81 DEC REASED LIBIDO 04/29/2013 V26.9 PROC REATIVE MANAGEMENT 04/29/2013 799.81 DEC REASED LIBIDO 04/29/2013 V26.9 PROC REATIVE MANAGEMENT 04/29/2013 799.81 DEC REASED LIBIDO 04/29/2013 V26.9 PROC REATIVE MANAGEMENT 04/29/2013 NICOLA MANUEL DO 799.81 DECREASED LIBIDO 04/29/2013 NICOLA MANUEL DO K V26.9 PROCREATIVE MANAGEMENT 04/29/2013 JASON HUNTER APRN 799.81 DECREASED LIBIDO 04/29/2013 JASON HUNTER APRN V26.9 PROCREATIVE MANAGEMENT 04/29/2013 WOLF JAMA MD 799.8 1 DECREASED LIBIDO 04/29/2013 WOLF JAMA MD V26.9 PROCREATIVE MANAGEMENT 04/29/2013 NICOLA MANUEL DO K 799.81 DECREASED LIBIDO 04/29/2013 NICOLA MANUEL DO K V26.9 PROCREATIVE MANAGEMENT 04/29/2013 KELY FRIEDMAN DDS 799.81 DECREASED LIBIDO 04/29/2013 KELY FRIEDMAN DDS V2 6.9 PROCREATIVE MANAGEMENT 04/29/2013 GARTON QUARTER SUPERVISOR, JASON D 799.81 DECREASED LIBIDO 04/29/2013 JASON HUNTER APRN D V26.9 PROCREATIVE MANAGEMENT 04/29/2013 JASON HUNTER APRN D 799.81 DECREASED LIBIDO 04/29/2013 JASON HUNTER APRN D V26.9 PROCREATIVE MANAGEMENT 04/29/2013 JASON HUNTER APRN D 799.81 DECREASED LIBIDO 04/29/2013 JASON HUNTER APRN V26.9 PROCREATIVE MANAGEMENT 04/29/2013 WOLF JAMA MD 799.8 1 DECREASED LIBIDO 04/29/2013 WOLF JAMA MD V26.9 PROCREATIVE MANAGEMENT 04/29/2013 ROEL TAQUERIA GODWIN 799 .81 DECREASED LIBIDO 04/29/2013 ROEL MENG GODIWN V26 .9 PROCREATIVE MANAGEMENT 04/29/2013 MADL QUARTER SUPERVISOR, FLO L 799 .81 DECREASED LIBIDO 04/29/2013 MADL QUARTER SUPERVISOR, FLO L V26 .9 PROCREATIVE MANAGEMENT 04/29/2013 ROEL QUARTER SUPERVISOR, GODWIN 799 .81 DECREASED LIBIDO 04/29/2013 ROEL QUARTER SUPERVISOR, GODWIN V26 .9 PROCREATIVE MANAGEMENT 04/29/2013 MADL QUARTER SUPERVISOR, FLO L 799 .81 DECREASED LIBIDO 04/29/2013 MADL QUARTER SUPERVISOR, FLO L V26 .9 PROCREATIVE MANAGEMENT 04/29/2013 ROEL QUARTER SUPERVISOR, GODWIN 799 .81 DECREASED LIBIDO 04/29/2013 ROEL QUARTER SUPERVISOR, GODWIN V26 .9 PROCREATIVE MANAGEMENT 04/29/2013 ROEL QUARTER SUPERVISOR, GODWIN 799 .81 DECREASED LIBIDO 04/29/2013 ROEL QUARTER SUPERVISOR, GODWIN V26 .9 PROCREATIVE MANAGEMENT 04/29/2013 MADL QUARTER SUPERVISOR, FLO L 799 .81 DECREASED LIBIDO 04/29/2013 MADL QUARTER SUPERVISOR, FLO L V26 .9 PROCREATIVE MANAGEMENT 04/29/2013 MADL QUARTER SUPERVISOR, FLO L 799 .81 DECREASED LIBIDO 04/29/2013 MADL QUARTER SUPERVISOR, FLO L V26 .9 PROCREATIVE MANAGEMENT 04/29/2013 ROEL QUARTER SUPERVISOR, GODWIN 799 .81 DECREASED LIBIDO 04/29/2013 ROEL QUARTER SUPERVISOR, GODWIN V26 .9 PROCREATIVE MANAGEMENT 04/29/2013 SONNY QUARTER SUPERVISOR, ELIAS A 799.81 DECREASED LIBIDO 04/29/2013 SONNY QUARTER SUPERVISOR, ELIAS A V2 6.9 PROCREATIVE MANAGEMENT 04/29/2013 [facility], DEMOND R 799.81 DECREASED LIBIDO 04/29/2013 [facility], DEMOND R V26.9 PROCREATIVE MANAGEMENT 04/29/2013 MADL QUARTER SUPERVISOR, FLO L 799 .81 DECREASED LIBIDO 04/29/2013 MADL QUARTER SUPERVISOR, FLO L V26 .9 PROCREATIVE MANAGEMENT 04/29/2013 SILVERIO DDS, JOSE 799.81 DECREASED LIBIDO 04/29/2013 SILVERIO DDS, JOSE V2 6.9 PROCREATIVE MANAGEMENT 04/29/2013 [facility], DEMOND R 799.81 DECREASED LIBIDO 04/29/2013 [facility], DEMOND R V26.9 PROCREATIVE MANAGEMENT 04/29/2013 [facility], DEMOND R 799.81 DECREASED LIBIDO 04/29/2013 [facility], DEMOND R V26.9 PROCREATIVE MANAGEMENT 04/29/2013 ROEL QUARTER SUPERVISOR, GODWIN 799 .81 DECREASED LIBIDO 04/29/2013 ROEL QUARTER SUPERVISOR, GODWIN V26 .9 PROCREATIVE MANAGEMENT 04/29/2013 MANUEL DO NICOLA K 799.81 DECREASED LIBIDO 04/29/2013 MANUEL DO, NICOLA K V26.9 PROCREATIVE MANAGEMENT 04/29/2013 ROEL QUARTER SUPERVISOR, GODWIN 799 .81 DECREASED LIBIDO 04/29/2013 ROEL QUARTER SUPERVISOR, GODWIN V26 .9 PROCREATIVE MANAGEMENT 04/29/2013 ROEL QUARTER SUPERVISOR, GODWIN 799 .81 DECREASED LIBIDO 04/29/2013 ROEL QUARTER SUPERVISOR, GODWIN V26 .9 PROCREATIVE MANAGEMENT 04/30/2013 MEJIA JONES, YAW R Ot 338. 29 OTHER CHRONIC PAIN 04/30/2013 MEJIA JONES, YAW R Ot 724. 2 LUMBAGO 05/17/2013 338.29 CHR ONIC PAIN 05/17/2013 MANUEL DO NICOLA K 338.29 CHRONIC PAIN 05/17/2013 DALE QUARTER SUPERVISORJASON Kirkpatrick D 338.29 CHRONIC PAIN 05/17/2013 WOLF JAMA MD 338.2 9 CHRONIC PAIN 05/17/2013 NICOLA MANUEL DO 338.29 CHRONIC PAIN 05/17/2013 KELY FRIEDMAN DDS 338.29 CHRONIC PAIN 05/17/2013 GARTON QUARTER SUPERVISOR, JASON D 338.29 CHRONIC PAIN 05/17/2013 GARTON QUARTER SUPERVISORJASON Kirkpatrick D 338.29 CHRONIC PAIN 05/17/2013 GARTON QUARTER SUPERVISOR, JASON D 338.29 CHRONIC PAIN 05/17/2013 WOLF JAMA MD 338.2 9 CHRONIC PAIN 05/17/2013 ROEL QUARTER SUPERVISOR, GODWIN 338 .29 CHRONIC PAIN 05/17/2013 MADL QUARTER SUPERVISOR, FLO L 338 .29 CHRONIC PAIN 05/17/2013 ROEL QUARTER SUPERVISOR, GODWIN 338 .29 CHRONIC PAIN 05/17/2013 MADL QUARTER SUPERVISOR, FLO L 338 .29 CHRONIC PAIN 05/17/2013 ROEL QUARTER SUPERVISOR, GODWIN 338 .29 CHRONIC PAIN 05/17/2013 ROEL QUARTER SUPERVISOR, GODWIN 338 .29 CHRONIC PAIN 05/17/2013 MADL QUARTER SUPERVISOR, FLO L 338 .29 CHRONIC PAIN 05/17/2013 MADL QUARTER SUPERVISOR, FLO L 338 .29 CHRONIC PAIN 05/17/2013 ROEL QUARTER SUPERVISOR, GODWIN 338 .29 CHRONIC PAIN 05/17/2013 SONNY QUARTER SUPERVISOR, ELIAS A 338.29 CHRONIC PAIN 05/17/2013 [facility], DEMOND R 338.29 CHRONIC PAIN 05/17/2013 MADL QUARTER SUPERVISOR, FLO L 338 .29 CHRONIC PAIN 05/17/2013 JOSE SILVERIO DDS 338.29 CHRONIC PAIN 05/17/2013 [facility], DEMOND R 338.29 CHRONIC PAIN 05/17/2013 [facility], DEMOND R 338.29 CHRONIC PAIN 05/17/2013 ROEL QUARTER SUPERVISOR, GODWIN 338 .29 CHRONIC PAIN 05/17/2013 NICOLA MANUEL DO 338.29 CHRONIC PAIN 05/17/2013 ROEL QUARTER SUPERVISOR, GODIWN 338 .29 CHRONIC PAIN 05/17/2013 ROEL QUARTER SUPERVISOR, GODWIN 338 .29 CHRONIC PAIN 06/22/2013 V70.5 HEAL TH EXAMINATION OF DEFINED SUBPOPULATIONS 06/22/2013 MANUEL DO, NICOLA K V70.5 HEALTH EXAMINATION OF DEFINED SUBPOPULATIONS 06/22/2013 GARMYRA QUARTER SUPERVISORJASON Kirkpatrick D V70.5 HEALTH EXAMINATION OF DEFINED SUBPOPULATIONS 06/22/2013 WOLF JAMA MD V70.5 HEALTH EXAMINATION OF DEFINED SUBPOPULATIONS 06/22/2013 MANUEL DO, NICOLA K V70.5 HEALTH EXAMINATION OF DEFINED SUBPOPULATIONS 06/22/2013 IDALIA BAKER, KELY Dickens V7 0.5 HEALTH EXAMINATION OF DEFINED SUBPOPULATIONS 06/22/2013 GARTON QUARTER SUPERVISORJASON D V70.5 HEALTH EXAMINATION OF DEFINED SUBPOPULATIONS 06/22/2013 GARTON QUARTER SUPERVISORJASON D V70.5 HEALTH EXAMINATION OF DEFINED SUBPOPULATIONS 06/22/2013 GARMYRA QUARTER SUPERVISORJASON Kirkpatrick D V70.5 HEALTH EXAMINATION OF DEFINED SUBPOPULATIONS 06/22/2013 WOLF JAMA MD V70.5 HEALTH EXAMINATION OF DEFINED SUBPOPULATIONS 06/22/2013 ROEL QUARTER SUPERVISOR, GODWIN V70 .5 HEALTH EXAMINATION OF DEFINED SUBPOPULATIONS 06/22/2013 MADL QUARTER SUPERVISOR, FLO L V70 .5 HEALTH EXAMINATION OF DEFINED SUBPOPULATIONS 06/22/2013 ROEL QUARTER SUPERVISOR, GODWIN V70 .5 HEALTH EXAMINATION OF DEFINED SUBPOPULATIONS 06/22/2013 MADL QUARTER SUPERVISOR, FLO L V70 .5 HEALTH EXAMINATION OF DEFINED SUBPOPULATIONS 06/22/2013 ROEL QUARTER SUPERVISOR, GODWIN V70 .5 HEALTH EXAMINATION OF DEFINED SUBPOPULATIONS 06/22/2013 ROEL QUARTER SUPERVISOR, GODWIN V70 .5 HEALTH EXAMINATION OF DEFINED SUBPOPULATIONS 06/22/2013 MADL QUARTER SUPERVISOR, FLO L V70 .5 HEALTH EXAMINATION OF DEFINED SUBPOPULATIONS 06/22/2013 MADL QUARTER SUPERVISOR, FLO L V70 .5 HEALTH EXAMINATION OF DEFINED SUBPOPULATIONS 06/22/2013 ROEL QUARTER SUPERVISOR, GODWIN V70 .5 HEALTH EXAMINATION OF DEFINED SUBPOPULATIONS 06/22/2013 SONNY QUARTER SUPERVISOR, ELIAS A V7 0.5 HEALTH EXAMINATION OF DEFINED SUBPOPULATIONS 06/22/2013 [facility] EXAMINATION OF DEFINED SUBPOPULATIONS 06/22/2013 MADL QUARTER SUPERVISOR, FLO L V70 .5 HEALTH EXAMINATION OF DEFINED SUBPOPULATIONS 06/22/2013 JOSE SILVERIO DDS V7 0.5 HEALTH EXAMINATION OF DEFINED SUBPOPULATIONS 06/22/2013 [facility], DEMOND R V70.5 HEALTH EXAMINATION OF DEFINED SUBPOPULATIONS 06/22/2013 [facility], DEMOND R V70.5 HEALTH EXAMINATION OF DEFINED SUBPOPULATIONS 06/22/2013 ROEL QUARTER SUPERVISOR, GODWIN V70 .5 HEALTH EXAMINATION OF DEFINED SUBPOPULATIONS 06/22/2013 MAR BLANTONNICOLA Jacinta V70.5 HEALTH EXAMINATION OF DEFINED SUBPOPULATIONS 06/22/2013 ROEL QUARTER SUPERVISOR GODWIN V70 .5 HEALTH EXAMINATION OF DEFINED SUBPOPULATIONS 06/22/2013 ROEL QUARTER SUPERVISOR, GODWIN V70 .5 HEALTH EXAMINATION OF DEFINED SUBPOPULATIONS 07/04/2013 MANUEL NICOLA BLANTON K 296.30 MO DEPRESSIVE RECURRENT UNSPECIFIED 07/04/2013 JASON HUNTER APRN 296.30 MO DEPRESSIVE RECURRENT UNSPECIFIED 07/04/2013 WOLF JAMA MD 296.3 0 MO DEPRESSIVE RECURRENT UNSPECIFIED 07/04/2013 NICOLA MANUEL DO 296.30 MO DEPRESSIVE RECURRENT UNSPECIFIED 07/04/2013 IDALIA BAKER, KELY Dickens 296.30 MO DEPRESSIVE RECURRENT UNSPECIFIED 07/04/2013 JASON HUNTER APRN 296.30 MO DEPRESSIVE RECURRENT UNSPECIFIED 07/04/2013 JASON HUNTER APRN 296.30 MO DEPRESSIVE RECURRENT UNSPECIFIED 07/04/2013 JASON HUNTER APRN 296.30 MO DEPRESSIVE RECURRENT UNSPECIFIED 07/04/2013 WOLF JAMA MD 296.3 0 MO DEPRESSIVE RECURRENT UNSPECIFIED 07/04/2013 ROEL QUARTER SUPERVISOR, GODWIN 296 .30 MO DEPRESSIVE RECURRENT UNSPECIFIED 07/04/2013 MADL QUARTER SUPERVISOR, FLO L 296 .30 MO DEPRESSIVE RECURRENT UNSPECIFIED 07/04/2013 ROEL QUARTER SUPERVISOR, GODWIN 296 .30 MO DEPRESSIVE RECURRENT UNSPECIFIED 07/04/2013 MADL QUARTER SUPERVISOR, FLO L 296 .30 MO DEPRESSIVE RECURRENT UNSPECIFIED 07/04/2013 ROEL QUARTER SUPERVISOR GODWIN 296 .30 MO DEPRESSIVE RECURRENT UNSPECIFIED 07/04/2013 ROEL QUARTER SUPERVISOR, GODWIN 296 .30 MO DEPRESSIVE RECURRENT UNSPECIFIED 07/04/2013 MADL QUARTER SUPERVISOR, FLO L 296 .30 MO DEPRESSIVE RECURRENT UNSPECIFIED 07/04/2013 MADL QUARTER SUPERVISOR, FLO L 296 .30 MO DEPRESSIVE RECURRENT UNSPECIFIED 07/04/2013 ROEL QUARTER SUPERVISOR, GODWIN 296 .30 MO DEPRESSIVE RECURRENT UNSPECIFIED 07/04/2013 SONNY TAQUERIAELIAS A 296.30 MO DEPRESSIVE RECURRENT UNSPECIFIED 07/04/2013 [facility], DEMOND R 296.30 MO DEPRESSIVE RECURRENT UNSPECIFIED 07/04/2013 MADL QUARTER SUPERVISOR, FLO L 296 .30 MO DEPRESSIVE RECURRENT UNSPECIFIED 07/04/2013 SILVERIOEMMIE BAKER JOSE 296.30 MO DEPRESSIVE RECURRENT UNSPECIFIED 07/04/2013 [facility], DEMOND R 296.30 MO DEPRESSIVE RECURRENT UNSPECIFIED 07/04/2013 [facility], DEMOND R 296.30 MO DEPRESSIVE RECURRENT UNSPECIFIED 07/04/2013 ROEL QUARTER SUPERVISOR, GODWIN 296 .30 MO DEPRESSIVE RECURRENT UNSPECIFIED 07/04/2013 NICOLA MANUEL DO K 296.30 MO DEPRESSIVE RECURRENT UNSPECIFIED 07/04/2013 ROEL QUARTER SUPERVISOR, GODWIN 296 .30 MO DEPRESSIVE RECURRENT UNSPECIFIED 07/04/2013 ROEL QUARTER SUPERVISOR, GODWIN 296 .30 MO DEPRESSIVE RECURRENT UNSPECIFIED 08/14/2013 JASON HUNTER APRN V23.9 , HIGH-RISK (UNSPEC) 08/14/2013 WOLF JAMA MD V23.9 , HIGH-RISK (UNSPEC) 08/14/2013 NICOLA MANUEL DO V23.9 , HIGH-RISK (UNSPEC) 08/14/2013 KELY FRIEDMAN DDS V2 3.9 , HIGH-RISK (UNSPEC) 08/14/2013 JASON HUNTER APRN V23.9 , HIGH-RISK (UNSPEC) 08/14/2013 JASON HUNTER APRN V23.9 , HIGH-RISK (UNSPEC) 08/14/2013 JASON HUNTER APRN V23.9 , HIGH-RISK (UNSPEC) 08/14/2013 WOLF JAMA MD V23.9 , HIGH-RISK (UNSPEC) 08/14/2013 ROEL QUARTER SUPERVISOR, GODWIN V23 .9 , HIGH-RISK (UNSPEC) 08/14/2013 LISA QUARTER SUPERVISORFLO Kirkaptrick L V23 .9 , HIGH-RISK (UNSPEC) 08/14/2013 ROEL QUARTER SUPERVISOR, GODWIN V23 .9 , HIGH-RISK (UNSPEC) 08/14/2013 BRYANL QUARTER SUPERVISOR, FLO L V23 .9 , HIGH-RISK (UNSPEC) 08/14/2013 ROEL QUARTER SUPERVISOR, GODWIN V23 .9 , HIGH-RISK (UNSPEC) 08/14/2013 ROEL QUARTER SUPERVISOR, GODWIN V23 .9 , HIGH-RISK (UNSPEC) 08/14/2013 MADL QUARTER SUPERVISOR, FLO L V23 .9 , HIGH-RISK (UNSPEC) 08/14/2013 MADL QUARTER SUPERVISOR, FLO L V23 .9 , HIGH-RISK (UNSPEC) 08/14/2013 ROEL QUARTER SUPERVISOR, GODWIN V23 .9 , HIGH-RISK (UNSPEC) 08/14/2013 SONNY QUARTER SUPERVISOR, ELIAS A V2 3.9 , HIGH-RISK (UNSPEC) 08/14/2013 [facility], DEMOND R V23.9 , HIGH-RISK (UNSPEC) 08/14/2013 MADL QUARTER SUPERVISOR, FLO L V23 .9 , HIGH-RISK (UNSPEC) 08/14/2013 JOSE SILVERIO DDS V2 3.9 , HIGH-RISK (UNSPEC) 08/14/2013 [facility], DEMOND R V23.9 , HIGH-RISK (UNSPEC) 08/14/2013 [facility], DEMOND R V23.9 , HIGH-RISK (UNSPEC) 08/14/2013 ROEL QUARTER SUPERVISOR, GODWIN V23 .9 , HIGH-RISK (UNSPEC) 08/14/2013 MAR BLANTON, NICOLA K V23.9 , HIGH-RISK (UNSPEC) 08/14/2013 ROEL QUARTER SUPERVISOR, GODWIN V23 .9 , HIGH-RISK (UNSPEC) 08/14/2013 ROEL QUARTER SUPERVISOR, GODWIN V23 .9 , HIGH-RISK (UNSPEC) 09/11/2013 WOLF JAMA MD 788.1 DYSURIA 09/11/2013 NICOLA MANUEL DO K 788.1 DYSURIA 09/11/2013 KELY FRIEDMAN DDS 78 8.1 DYSURIA 09/11/2013 JASON HUNTER APRN 788.1 DYSURIA 09/11/2013 JASON HUNTER APRN 788.1 DYSURIA 09/11/2013 JASON HUNTER APRN 788.1 DYSURIA 09/11/2013 EVITA JONES, WOLF 788.1 DYSURIA 09/11/2013 ROEL QUARTER SUPERVISOR, GODWIN 788 .1 DYSURIA 09/11/2013 MADL QUARTER SUPERVISOR, FLO L 788 .1 DYSURIA 09/11/2013 ROEL QUARTER SUPERVISOR, GODWIN 788 .1 DYSURIA 09/11/2013 MADL QUARTER SUPERVISOR, FLO L 788 .1 DYSURIA 09/11/2013 ROEL QUARTER SUPERVISOR, GODWIN 788 .1 DYSURIA 09/11/2013 ROEL QUARTER SUPERVISOR, GODWIN 788 .1 DYSURIA 09/11/2013 MADL QUARTER SUPERVISOR, FLO L 788 .1 DYSURIA 09/11/2013 MADL QUARTER SUPERVISOR, FLO L 788 .1 DYSURIA 09/11/2013 ROEL QUARTER SUPERVISOR, GODWIN 788 .1 DYSURIA 09/11/2013 SONNY QUARTER SUPERVISOR, ELIAS A 78 8.1 DYSURIA 09/11/2013 [facility], DEMOND R 788.1 DYSURIA 09/11/2013 MADL QUARTER SUPERVISOR, FLO L 788 .1 DYSURIA 09/11/2013 NUSRAT DDS, JOSE 78 8.1 DYSURIA 09/11/2013 [facility], DEMOND R 788.1 DYSURIA 09/11/2013 [facility], DEMOND R 788.1 DYSURIA 09/11/2013 ROEL QUARTER SUPERVISOR, GODWIN 788 .1 DYSURIA 09/11/2013 MAR DO, NICOLA K 788.1 DYSURIA 09/11/2013 ROEL QUARTER SUPERVISOR, GODWIN 788 .1 DYSURIA 09/11/2013 ROEL QUARTER SUPERVISOR, GODWIN 788 .1 DYSURIA 11/13/2013 JENNIFER MAYES MD Ot 623.5 NONINFECT VAG LEUKORRHEA 11/13/2013 JENNIFER MAYES MD Ot 654.73 ABNORM VAGINA-ANTEPARTUM 11/13/2013 JENNIFER MAYES MD Ot V04.81 ND FOR PROPHYLACTIC VACCIN AND INOCULATI 02/11/2014 JENNIFER MAYES MD Ot 625.9 FEM GENITAL SYMPTOMS NOS 02/11/2014 JENNIFER MAYES MD Ot 648.93 OTH CURR COND-ANTEPARTUM 03/14/2014 JENNIFER MAYES MD Ot 644.13 THREAT LABOR NEC-ANTEPAR 03/21/2014 JENNIFER MAYES MD, Ot 574.20 CHOLELITHIASIS NOS 03/21/2014 JENNIFER MAYES MD Ot 646.83 PREG COMPL NEC-ANTEPART 03/21/2014 JENNIFER MAYES MD, Ot 789.01 ABDOMINAL PAIN, RIGHT UPPER QUADRANT 03/26/2014 JENNIFER MAYES MD, Ot 041.04 STREPTOCOCCUS INFECTION NOS, GROUP D (EN 03/26/2014 JENNIFER MAYES MD Ot 041.49 OTHER AND UNSPECIFIED ESCHERICHIA COLI [ 03/26/2014 JENNIFER MAYES MD Ot 615.9 UTERINE INFLAM DIS NOS 03/26/2014 JENNIFER MAYES MD Ot 646.61 INFECTION-DELIVERED 03/26/2014 JENNIFER MAYES MD Ot 656.81 FET/PLAC PROB NEC-DELIV 03/26/2014 JENNIFER MAYES MD Ot 658.41 AMNIOTIC INFECTION-DELIV 03/26/2014 JENNIFER MAYES MD Ot V06.1 [id number], COMBINED [ 03/26/2014 JENNIFER MAYES MD, Ot V06.5 TETANUS-DIPHTHERIA [TD][DT] 03/26/2014 JENNIFER MAYES MD Ot V27.0 DELIVER-SINGLE LIVEBORN 05/01/2014 MIGDALIA RAMON DO Ot 599.0 URIN TRACT INFECTION NOS 05/01/2014 MIGDALIA RAMON DO Ot 724.5 BACKACHE NOS 05/27/2014 FLO GONZALEZ APRN 724 .2 BACK PAIN, LOWER 05/27/2014 GODWIN SEVILLA APRN 724 .2 BACK PAIN, LOWER 05/27/2014 FLO GONZALEZ APRN 724 .2 BACK PAIN, LOWER 05/27/2014 GODWIN SEVILLA APRN 724 .2 BACK PAIN, LOWER 05/27/2014 GODWIN SEVILLA APRN 724 .2 BACK PAIN, LOWER 05/27/2014 MADL QUARTER SUPERVISOR, FLO L 724 .2 BACK PAIN, LOWER 05/27/2014 MADL QUARTER SUPERVISOR, FLO L 724 .2 BACK PAIN, LOWER 05/27/2014 ROEL QUARTER SUPERVISOR, GODWIN 724 .2 BACK PAIN, LOWER 05/27/2014 SONNY QUARTER SUPERVISOR, ELIAS A 72 4.2 BACK PAIN, LOWER 05/27/2014 ANGELA LSCS, DEMOND R 724.2 BACK PAIN, LOWER 05/27/2014 MADL QUARTER SUPERVISOR, FLO L 724 .2 BACK PAIN, LOWER 05/27/2014 SILVERIO DDS, JOSE 72 4.2 BACK PAIN, LOWER 05/27/2014 ANGELA LSCS, DEMOND R 724.2 BACK PAIN, LOWER 05/27/2014 ANGELA LSCS, DEMOND R 724.2 BACK PAIN, LOWER 05/27/2014 ROEL QUARTER SUPERVISOR, GODWIN 724 .2 BACK PAIN, LOWER 05/27/2014 MANUEL DO, NICOLA K 724.2 BACK PAIN, LOWER 05/27/2014 ROEL QUARTER SUPERVISOR, GODWIN 724 .2 BACK PAIN, LOWER 05/27/2014 ROEL QUARTER SUPERVISOR, GODWIN 724 .2 BACK PAIN, LOWER 06/05/2014 IVONNE JONES, REZA Steel Ot 490 BRONCHITIS NOS 06/05/2014 REZA CORONADO MD Ot 786.2 COUGH 06/10/2014 GODWIN SEVILLA APRN 296 .35 MO DEPRESSIVE RECURRENT IN PART OR UNSPECIFIED REMISSION 06/10/2014 GODWIN SEVILLA APRN 300 .02 AN GEN ANXIETY 06/10/2014 MADL QUARTER SUPERVISOR, FLO L 296 .35 MO DEPRESSIVE RECURRENT IN PART OR UNSPECIFIED REMISSION 06/10/2014 BRYANL TAQUERIA, FLO L 300 .02 AN GEN ANXIETY 06/10/2014 ROEL EMNG GODWIN 296 .35 MO DEPRESSIVE RECURRENT IN PART OR UNSPECIFIED REMISSION 06/10/2014 ROEL MENG GODWIN 300 .02 AN GEN ANXIETY 06/10/2014 ROEL QUARTER SUPERVISOR, GODWIN 296 .35 MO DEPRESSIVE RECURRENT IN PART OR UNSPECIFIED REMISSION 06/10/2014 ROEL MENG GODWIN 300 .02 AN GEN ANXIETY 06/10/2014 MADL QUARTER SUPERVISOR, FLO L 296 .35 MO DEPRESSIVE RECURRENT IN PART OR UNSPECIFIED REMISSION 06/10/2014 FLO GONZALEZ APRN L 300 .02 AN GEN ANXIETY 06/10/2014 ROSITA GONZALEZ APRNA L 296 .35 MO DEPRESSIVE RECURRENT IN PART OR UNSPECIFIED REMISSION 06/10/2014 MADL ROSITA MENGA L 300 .02 AN GEN ANXIETY 06/10/2014 ROEL QUARTER SUPERVISOR, GODWIN 296 .35 MO DEPRESSIVE RECURRENT IN PART OR UNSPECIFIED REMISSION 06/10/2014 ROEL QUARTER SUPERVISOR, GODWIN 300 .02 AN GEN ANXIETY 06/10/2014 SONNY QUARTER SUPERVISOR, ELIAS A 296.35 MO DEPRESSIVE RECURRENT IN PART OR UNSPECIFIED REMISSI ON 06/10/2014 SONNY QUARTER SUPERVISOR, ELIAS A 300.02 AN GEN ANXIETY 06/10/2014 [facility], DEMOND R 296.35 MO DEPRESSIVE RECURRENT IN PART OR UNSPECIFIED REMISSI ON 06/10/2014 [facility], DEMOND R 300.02 AN GEN ANXIETY 06/10/2014 ROSITA GONZALEZ APRNA L 296 .35 MO DEPRESSIVE RECURRENT IN PART OR UNSPECIFIED REMISSION 06/10/2014 ROSITA GONZALEZ APRNA L 300 .02 AN GEN ANXIETY 06/10/2014 NUSRAT DDS JOSE 296.35 MO DEPRESSIVE RECURRENT IN PART OR UNSPECIFIED REMISSI ON 06/10/2014 SILVERIO DDS, JOSE 300.02 AN GEN ANXIETY 06/10/2014 [facility], DEMOND R 296.35 MO DEPRESSIVE RECURRENT IN PART OR UNSPECIFIED REMISSI ON 06/10/2014 [facility], DEMOND R 300.02 AN GEN ANXIETY 06/10/2014 [facility], DEMOND R 296.35 MO DEPRESSIVE RECURRENT IN PART OR UNSPECIFIED REMISSI ON 06/10/2014 [facility], DEMOND R 300.02 AN GEN ANXIETY 06/10/2014 ROEL QUARTER SUPERVISOR, GODWIN 296 .35 MO DEPRESSIVE RECURRENT IN PART OR UNSPECIFIED REMISSION 06/10/2014 ROEL QUARTER SUPERVISOR, GODWIN 300 .02 AN GEN ANXIETY 06/10/2014 NICOLA MANUEL DO 296.35 MO DEPRESSIVE RECURRENT IN PART OR UNSPECIFIED REMISSION 06/10/2014 NICOLA MANUEL DO K 300.02 AN GEN ANXIETY 06/10/2014 ROEL QUARTER SUPERVISOR, GODWIN 296 .35 MO DEPRESSIVE RECURRENT IN PART OR UNSPECIFIED REMISSION 06/10/2014 ROEL QUARTER SUPERVISOR, GODWIN 300 .02 AN GEN ANXIETY 06/10/2014 ROEL QUARTER SUPERVISOR, GODWIN 296 .35 MO DEPRESSIVE RECURRENT IN PART OR UNSPECIFIED REMISSION 06/10/2014 ROEL TAQUERIA GODWIN 300 .02 AN GEN ANXIETY 07/04/2014 MADL QUARTER SUPERVISOR, FLO L 782 .7 SPONTANEOUS ECCHYMOSES 07/04/2014 ROEL QUARTER SUPERVISOR, GODWIN 782 .7 SPONTANEOUS ECCHYMOSES 07/04/2014 ROEL QUARTER SUPERVISOR, GODWIN 782 .7 SPONTANEOUS ECCHYMOSES 07/04/2014 MADL QUARTER SUPERVISOR, FLO L 782 .7 SPONTANEOUS ECCHYMOSES 07/04/2014 MADL QUARTER SUPERVISOR, FLO L 782 .7 SPONTANEOUS ECCHYMOSES 07/04/2014 ROEL QUARTER SUPERVISOR, GODWIN 782 .7 SPONTANEOUS ECCHYMOSES 07/04/2014 ELIAS DENNIS APRN 78 2.7 SPONTANEOUS ECCHYMOSES 07/04/2014 [facility], DEMOND R 782.7 SPONTANEOUS ECCHYMOSES 07/04/2014 MADL QUARTER SUPERVISOR, FLO L 782 .7 SPONTANEOUS ECCHYMOSES 07/04/2014 JOSE SILVERIO DDS 78 2.7 SPONTANEOUS ECCHYMOSES 07/04/2014 [facility], DEMOND R 782.7 SPONTANEOUS ECCHYMOSES 07/04/2014 [facility], DEMOND R 782.7 SPONTANEOUS ECCHYMOSES 07/04/2014 ROEL QUARTER SUPERVISOR, GODWIN 782 .7 SPONTANEOUS ECCHYMOSES 07/04/2014 NICOLA MANUEL DO 782.7 SPONTANEOUS ECCHYMOSES 07/04/2014 ROEL QUARTER SUPERVISOR, GODWIN 782 .7 SPONTANEOUS ECCHYMOSES 07/04/2014 ROEL QUARTER SUPERVISOR, GODWIN 782 .7 SPONTANEOUS ECCHYMOSES 08/04/2014 ISMAEL SOL APRN Ot 724 .5 BACKACHE NOS 08/04/2014 ISMAEL SOL APRN Ot E000.8 OTHER EXTERNAL CAUSE STATUS 08/04/2014 ISMAEL SOL APRN Ot E849.6 ACCIDENT IN PUBLIC BLDG 08/04/2014 ISMAEL SOL APRN Ot E885.9 FALL FROM SLIPPING, TRIPPING, OR STUMBLI 09/16/2014 MADL QUARTER SUPERVISOR, FLO L 783 .21 LOSS OF WEIGHT 09/16/2014 MADL QUARTER SUPERVISOR, FLO L 789 .00 ABDOMINAL PAIN UNSPECIFIED SITE 09/16/2014 MADL QUARTER SUPERVISOR, FLO L 789 .01 ABDOMINAL PAIN RIGHT UPPER QUADRANT 09/16/2014 MADL QUARTER SUPERVISOR, FLO L 789 .06 ABDOMINAL PAIN EPIGASTRIC 09/16/2014 MADL QUARTER SUPERVISOR, FLO L 783 .21 LOSS OF WEIGHT 09/16/2014 MADL QUARTER SUPERVISOR, FLO L 789 .00 ABDOMINAL PAIN UNSPECIFIED SITE 09/16/2014 MADL QUARTER SUPERVISOR, FLO L 789 .01 ABDOMINAL PAIN RIGHT UPPER QUADRANT 09/16/2014 MADL QUARTER SUPERVISOR, FLO L 789 .06 ABDOMINAL PAIN EPIGASTRIC 09/16/2014 ROEL MENG GODWIN 783 .21 LOSS OF WEIGHT 09/16/2014 ROEL MENG GODWIN 789 .00 ABDOMINAL PAIN UNSPECIFIED SITE 09/16/2014 ROEL QUARTER SUPERVISOR, GODWIN 789 .01 ABDOMINAL PAIN RIGHT UPPER QUADRANT 09/16/2014 ROEL QUARTER SUPERVISOR, GODWIN 789 .06 ABDOMINAL PAIN EPIGASTRIC 09/16/2014 SONNY MENG ELIAS A 783.21 LOSS OF WEIGHT 09/16/2014 SONNY MENG, ELIAS A 789.00 ABDOMINAL PAIN UNSPECIFIED SITE 09/16/2014 SONNY MENG ELIAS A 789.01 ABDOMINAL PAIN RIGHT UPPER QUADRANT 09/16/2014 SONNY MENG ELIAS A 789.06 ABDOMINAL PAIN EPIGASTRIC 09/16/2014 [facility], DEMOND R 783.21 LOSS OF WEIGHT 09/16/2014 [facility], DEMOND R 789.00 ABDOMINAL PAIN UNSPECIFIED SITE 09/16/2014 [facility], DEMOND R 789.01 ABDOMINAL PAIN RIGHT UPPER QUADRANT 09/16/2014 [facility], DEMOND R 789.06 ABDOMINAL PAIN EPIGASTRIC 09/16/2014 MADL QUARTER SUPERVISOR, FLO L 783 .21 LOSS OF WEIGHT 09/16/2014 MADL QUARTER SUPERVISOR, FLO L 789 .00 ABDOMINAL PAIN UNSPECIFIED SITE 09/16/2014 MADL QUARTER SUPERVISOR, FLO L 789 .01 ABDOMINAL PAIN RIGHT UPPER QUADRANT 09/16/2014 MADL QUARTER SUPERVISOR, FLO L 789 .06 ABDOMINAL PAIN EPIGASTRIC 09/16/2014 SILVERIO DDS, JOSE [...] R 789.06 ABDOMINAL PAIN EPIGASTRIC 09/16/2014 ROEL QUARTER SUPERVISOR, GODWIN 783 .21 LOSS OF WEIGHT 09/16/2014 ROEL QUARTER SUPERVISOR, GODWIN 789 .00 ABDOMINAL PAIN UNSPECIFIED SITE 09/16/2014 ROEL QUARTER SUPERVISOR, GODWIN 789 .01 ABDOMINAL PAIN RIGHT UPPER QUADRANT 09/16/2014 ROEL QUARTER SUPERVISOR, GODWIN 789 .06 ABDOMINAL PAIN EPIGASTRIC 09/16/2014 MANUEL DO, NICOLA K 783.21 LOSS OF WEIGHT 09/16/2014 MANUEL DO, NICOLA K 789.00 ABDOMINAL PAIN UNSPECIFIED SITE 09/16/2014 MANUEL DO, NICOLA K 789.01 ABDOMINAL PAIN RIGHT UPPER QUADRANT 09/16/2014 MANUEL DO, NICOLA K 789.06 ABDOMINAL PAIN EPIGASTRIC 09/16/2014 ROEL QUARTER SUPERVISOR, GODWIN 783 .21 LOSS OF WEIGHT 09/16/2014 ROEL QUARTER SUPERVISOR, GODWIN 789 .00 ABDOMINAL PAIN UNSPECIFIED SITE 09/16/2014 GDOWIN SEVILLA APRN 789 .01 ABDOMINAL PAIN RIGHT UPPER QUADRANT 09/16/2014 MICHAEL SEVILLA APRNETTE 789 .06 ABDOMINAL PAIN EPIGASTRIC 09/16/2014 GODWIN SEVILLA APRN 783 .21 LOSS OF WEIGHT 09/16/2014 MICHAEL SEVILLA APRNETTE 789 .00 ABDOMINAL PAIN UNSPECIFIED SITE 09/16/2014 MICHAEL SEVILLA APRNETTE 789 .01 ABDOMINAL PAIN RIGHT UPPER QUADRANT 09/16/2014 GODWIN SEVILLA APRN 789 .06 ABDOMINAL PAIN EPIGASTRIC 09/19/2014 SUNITA BERNAL Ot 521.00 UNSPEC DENTAL CARIES 09/19/2014 SUNITA BERNAL Ot 524.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 2 LUMBAGO 09/25/2014 JOSE FRIEDMAN MD Ot V57. 1 PHYSICAL THERAPY NEC 10/17/2014 GODWIN SEVILLA APRN 312 .30 I IMPULSE CONTROL DISORDER NOS 10/17/2014 GODWIN SEVILLA APRN V58 .69 MEDICATION HIGH RISK 10/17/2014 ELIAS DENNIS APRN A 312.30 I IMPULSE CONTROL DISORDER NOS 10/17/2014 SONNY MENG ELIAS A V58.69 MEDICATION HIGH RISK [facility]/17[facility]2014 [facility]ULSE CONTROL [facility] NOS 10/17/2014 [facility] V58.69 MEDICATION HIGH RISK 10/17/2014 ROSITA GONZALEZ APRNA L 312 .30 I IMPULSE CONTROL DISORDER NOS 10/17/2014 LISA MENG FLO L V58 .69 MEDICATION HIGH RISK 10/17/2014 SILVERIOJOSE JARAMILLO DDS 312.30 I IMPULSE CONTROL DISORDER NOS 10/17/2014 SILVERIO DDSJOSE V58.69 MEDICATION HIGH RISK 10/17/2014 [facility] DEMOND R 312.30 I IMPULSE CONTROL DISORDER NOS 10/17/2014 [facility], DEMOND R V58.69 MEDICATION HIGH RISK 10/17/2014 [facility], DEMOND R 312.30 I IMPULSE CONTROL DISORDER NOS 10/17/2014 [facility], DEMOND R V58.69 MEDICATION HIGH RISK 10/17/2014 ROEL QUARTER SUPERVISOR, GODWIN 312 .30 I IMPULSE CONTROL DISORDER NOS 10/17/2014 ROEL QUARTER SUPERVISOR, GODWIN V58 .69 MEDICATION HIGH RISK 10/17/2014 MARAL MANEUL DOA K 312.30 I IMPULSE CONTROL DISORDER NOS 10/17/2014 MANUEL MARAL BLANTONA K V58.69 MEDICATION HIGH RISK 10/17/2014 ROEL QUARTER SUPERVISOR, GODWIN 312 .30 I IMPULSE CONTROL DISORDER NOS 10/17/2014 ROEL QUARTER SUPERVISOR, GODWIN V58 .69 MEDICATION HIGH RISK 10/17/2014 ROEL QUARTER SUPERVISOR, GODWIN 312 .30 I IMPULSE CONTROL DISORDER NOS 10/17/2014 ROEL QUARTER SUPERVISOR, GODWIN V58 .69 MEDICATION HIGH RISK 10/31/2014 [facility], DEMOND R 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 10/31/2014 MADL QUARTER SUPERVISOR, FLO L 296 .62 MO BIPOLAR I MIXED MODERATE 10/31/2014 JOSE SILVERIO DDS 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 10/31/2014 [facility], DEMOND R 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 10/31/2014 [facility], DEMOND R 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 10/31/2014 ROEL QUARTER SUPERVISOR, GODWIN 296 .62 MO BIPOLAR I MIXED MODERATE 10/31/2014 MARAL MANUEL DOA K 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 10/31/2014 ROEL QUARTER SUPERVISOR, GODWIN 296 .62 MO BIPOLAR I MIXED MODERATE 10/31/2014 ROEL QUARTER SUPERVISOR, GODWIN 296 .62 MO BIPOLAR I MIXED MODERATE 11/10/2014 MADL QUARTER SUPERVISOR, FLO L 785 .1 PALPITATIONS 11/10/2014 JOSE SILVERIO DDS 78 5.1 PALPITATIONS 11/10/2014 [facility], DEMOND R 785.1 PALPITATIONS 11/10/2014 [facility], DEMOND R 785.1 PALPITATIONS 11/10/2014 ROEL QUARTER SUPERVISOR, GODWIN 785 .1 PALPITATIONS 11/10/2014 NICOLA MANUEL DO K 785.1 PALPITATIONS 11/10/2014 ROEL QUARTER SUPERVISOR, GODWIN 785 .1 PALPITATIONS 11/10/2014 ROEL QUARTER SUPERVISOR, GODWIN 785 .1 PALPITATIONS 11/28/2014 FLO GONZALEZ COST MANAGER Ot 785 .1 11/28/2014 ISMAEL SOL QUARTER SUPERVISOR Ot 521.00 UNSPEC DENTAL CARIES 11/28/2014 ISMAEL SOL QUARTER SUPERVISOR Ot 525 .9 DENTAL DISORDER NOS 12/09/2014 ISMAEL SOL QUARTER SUPERVISOR Ot 785 .1 PALPITATIONS 12/18/2014 NICOLA MANUEL DO V15.82 NICOTINE ABUSE 12/18/2014 GODWIN SEVILLA APRN V15 .82 NICOTINE ABUSE 12/18/2014 GODWIN SEVILLA APRN V15 .82 NICOTINE ABUSE 01/01/2015 BRYANFLO Alfred COST MANAGER Ot 785 .1 01/21/2015 Ot 521.00 UNS PEC DENTAL CARIES 01/21/2015 Ot 523.10 CHR ONIC GINGIVITIS, PLAQUE INDUCED 01/21/2015 Ot 525.9 DENT AL DISORDER NOS 01/23/2015 MICHAEL SEVILLA APRNETTE 296 .64 MO BIPOLAR I MIXED W PSYCHOTIC BEHAVIOR 01/23/2015 GODWIN SEVILLA APRN 296 .64 MO BIPOLAR I MIXED W PSYCHOTIC BEHAVIOR 02/25/2015 BRYANFLO Alfred COST MANAGER Ot 785 .1 PALPITATIONS 05/18/2015 Ot 427.9 05/18/2015 EVITA JONES, WOLF Carmona Ot 596.59 05/18/2015 EVITA JONES, WOLF Carmona Ot 724 .2 05/18/2015 EVITA JONES, WOLF Carmona Ot 729 .5 05/18/2015 GERBER JONES, JENNIFER Altamirano Ot 240.9 05/18/2015 JENNIFER MAYES MD Ot 789.01 05/18/2015 BRYANFLO Alfred COST MANAGER Ot 724 .2 05/18/2015 MADFLO Alfred COST MANAGER Ot 785 .1 05/18/2015 Ot 427.9 05/18/2015 EVITA JONES, WOLF Carmona Ot 596.59 05/18/2015 EVITA JONES, WOLF Carmona Ot 724 .2 05/18/2015 WOLF JAMA MD Ot 729 .5 05/18/2015 GERBER JONES, JENNIFER Altamirano Ot 240.9 05/18/2015 GERBER JONES, JENNIFER Altamirano Ot 789.01 05/18/2015 MADFLO Alfred COST MANAGER Ot 724 .2 05/18/2015 BRYANLFLO COST MANAGER Ot 785 .1 05/18/2015 ISMAEL SOL QUARTER SUPERVISOR Ot 112 .1 CANDIDAL VULVOVAGINITIS 05/18/2015 ISMAEL SOL QUARTER SUPERVISOR Ot 599 .0 URIN TRACT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 LOW BACK PAIN 01/17/2020 ISMAEL SOL APRN Ot Z77.22 CNTCT W AND EXPSR TO ENVIRON TOBACCO SMO 01/17/2020 ISMAEL SOL APRN Ot Z79.52 PENITENTIARY (CURRENT) USE OF SYSTEMIC STER 01/17/2020 ISMAEL SOL APRN Ot Z88 .0 ALLERGY STATUS TO PENICILLIN 01/17/2020 ISMAEL SOL APRN Ot Z88 .8 ALLERGY STATUS TO OTH DRUG/MEDS/BIOL SUB 02/02/2020 LEISURE, LYNIETA W 041.81 MYCOPLASMA INFECTION IN CONDITIONS CLASSIFIED ELSEWHERE AND OF UNSPECIFIED SITE 02/02/2020 LEISURE, LYNIETA W A49.3 MYCOPLASMA INFECTION, UNSPECIFIED SITE 02/02/2020 LEISURE, LYNIETA W 041.81 MYCOPLASMA INFECTION IN CONDITIONS CLASSIFIED ELSEWHERE AND OF UNSPECIFIED SITE 02/02/2020 LEISURE, LYNIETA W A49.3 MYCOPLASMA INFECTION, UNSPECIFIED SITE 02/02/2020 LEISURE, LYNIETA W 041.81 MYCOPLASMA INFECTION IN CONDITIONS CLASSIFIED ELSEWHERE AND OF UNSPECIFIED SITE 02/02/2020 LEISURE, GEETA W A49.3 MYCOPLASMA INFECTION, UNSPECIFIED SITE 02/06/2020 ISMAEL SOL APRN Ot G89.29 OTHER CHRONIC PAIN 02/06/2020 ISMAEL SOL APRN Ot M54 .9 DORSALGIA, UNSPECIFIED 02/06/2020 ISMAEL SOL APRN Ot R06.09 OTHER FORMS OF DYSPNEA 02/06/2020 ISMAEL SOL APRN Ot R50 .9 FEVER, UNSPECIFIED Procedures Code Description [place] [address] ROUT INE VENIPUNCTURE 09/28/2012 30914 CBC 09/28/2012 70061 CRP 09/29/2012 81821 URIN E TEST (IN- HOUSE) 11/29/2012 75382 URIN E TEST (IN- HOUSE) 01/16/2013 54424 TRIC HOMONAS (IN-HOUSE) 01/16/2013 10217 GC/C HLAM PROBE (STATE) 01/17/2013 76849 PAP SMEAR 01/17/2013 Q0091 PAP SMEAR OBTAIN SMEAR 01/17/2013 21682 CULT URE UROGENITAL 01/19/2013 51777 URIN E TEST (IN- HOUSE) 02/13/2013 54702 URIN E TEST (IN- HOUSE) 04/02/2013 51124 XRAY CERVICAL SPINE, 2 OR 3 VIEWS 04/02/2013 39314 XRAY LUMBAR SPINE 2 OR 3 VIEWS 04/02/2013 97636 MRI SPINE (LUMBAR) W/O CONTRAST 05/17/2013 40069 TB T EST INTRADERMAL 06/22/2013 39480 URIN E TEST (IN- HOUSE) 08/01/2013 07980 UA L PRAKASH DIP 09/11/2013 8425464 GF R CALC (RESULT ONLY) 09/16/2013 46552 CREA TININE 09/16/2013 58725 URIN E PROTEIN 24 HOUR 09/16/2013 [id number] URINE CREATININE CLEARANCE 24 09/16/2013 73.6 EPISIOTOMY 03/22/2014 04257 ROUT INE VENIPUNCTURE 07/04/2014 38534 MRI SPINE (LUMBAR) W/O CONTRAST 07/04/2014 38851 CMP 07/04/2014 36898 CBC 07/04/2014 64200 ROUT INE VENIPUNCTURE 09/16/2014 34418 US A BDOMINAL ULTRASOUND, COMPLETE 09/16/2014 58865 JENNIFER MIN D 25-HYDROXY (D2,D3, TOTAL) 09/16/2014 91871 VIT B 12 09/16/2014 16000 TSH 09/16/2014 06690 H PY LUIS ANTONIO (IN-HOUSE) 09/16/2014 92233 CBC 09/16/2014 4640443 GF R CALC (RESULT ONLY) 09/16/2014 02162 CMP 09/16/2014 88365 UA W / CULTURE IF INDICATED 10/29/2014 52267 GC/C HLAM URINE (STATE) 10/29/2014 82361 PSYC H DIAGNOSTIC EVALUATION 10/31/2014 01236 ROUT INE VENIPUNCTURE 11/10/2014 40326 XRAY CHEST 2 VIEW 11/10/2014 49249 CMP 11/10/2014 11945 MAGNESIUM 11/10/2014 29536 CBC 11/10/2014 07840 EKG, TRACING (IN-HOUSE) 11/10/2014 57120 VAZ ER MONITOR (OUTPATIENT) 11/10/2014 CARDIOLOG SAM ALI 11/10/2014 04674 PSYT X PT&/FAMILY 45 MINUTES 11/26/2014 [id number] DI VISION OF FEMALE PERINEUM, EXTERNAL AP 11/29/2016 [id number] DE LIVERY OF PRODUCTS OF CONCEPTION, EXTE [...] GLOBULIN RHOPHYLAC PRSMD TRFSD 06/29/16 1556 NR [id number] - 06/29/16 15:40 [id number] 1 300ug NRG Lot number - 06/29/16 15:40 Lot number [id number] NRG cell screen - 06/29/16 15:40 cell [...] culture - 06/29/16 16:25 Bacterial urine culture [id number] NRG COLONY COUNT >100,000/ML NRG FTX;REPORTABLE SENSITIVITY [...] identification in genital specimen by aerobe culture [id number] NRG Microscopic examination by wet preparati on [...] culture - 07/22/16 18:23 Bacterial urine culture [id number] NRG COLONY COUNT >100,000/ML NRG FTX;REPORTABLE SENSITIVITY REPORTED AT 1738, NR Bacterial susceptibility panel - 6 18:23 Gentamicin [...] inhibitory concentration - NRG [facility] - 10/05/16 12: 19 RH IMMUNE GLOBULIN [facility] PK JONES TRFSD 10/05/16 1300 NRG [id number] - 10/05/16 12:19 [id number] 1 300ug NRG Lot number - 10/05/16 12:19 Lot number [id number] NRG cell screen - 10/05/16 12:19 cell [...] platelet mean volume measurement 10.9 [foz_us] 7.4-10.4 [id number] - 11/08/16 19:04 [id number] SPECIMEN AVAILABLE NRG Complete blood count (CBC) with automate [...] ABO+Rh group AN NRG Transfusion band number [id number] NRG Blood group antibody screen NEGATIVE NR [...] nt by microscopy (number/high power field) [HPF] [facility] Automated urine sediment leukocyte count by microscopy [...] ABO+Rh group AN NRG Transfusion band number [id number] NRG Blood group antibody screen NEGATIVE NR [...] 11/30/17 10:20 MRSA SCREEN RESULT MRSA ISOLATED NRG LIPID PANEL - 02/21/18 10:29 CHOLESTEROL, TOTAL 155 mg/dL <200 HDL CHOLESTEROL 62 mg/dL >50 TRIGLYCERIDES 61 mg/dL <150 LDL-CHOLESTEROL 79 mg/dL (calc) NRG CHOL/HDLC RATIO 2.5 (calc) <5.0 NON HDL CHOLESTEROL 93 mg/dL (calc) <130 CMP - 02/21/18 10:29 GLUCOSE 84 mg/dL 65-99 UREA NITROGEN (BUN) 16 mg/dL 7-25 CREATININE 0.63 mg/dL 0.50-1.10 eGFR NON-AFR. SUDANESE 123 mL/min/1.73m2 > OR = 60 eGFR [...] urinalysis with reflex to culture NO NRG [facility] - 03/11/19 10:18 GLUCOSE 84 mg/dL 65-99 UREA NITROGEN (BUN) 16 mg/dL 7-25 CREATININE 0.67 mg/dL 0.50-1.10 eGFR NON-AFR. SUDANESE 120 mL/min/1.73m2 > OR = 60 eGFR [...] d white blood cell (WBC) differential - 02/01/20 19:15 Blood leukocytes automated count (number/volume) 8.4 10*3/uL 4.3-11.0 Blood erythrocytes automated count (number/volume) 4.84 10*6/uL 4.35-5.85 Venous blood hemoglobin measurement (mass/volume) 14.2 g/dL 11.5-16.0 Blood hematocrit (volume fraction) 42 % 35-52 Automated erythrocyte mean corpuscular volume 87 [ foz_us] 80-99 Automated erythrocyte mean corpuscular h emoglobin (mass per erythrocyte) 29 pg 25-34 Automated erythrocyte mean corpuscular h emoglobin concentration measurement (mass/volume) 34 g/dL 32-36 Automated erythrocyte distribution width ratio 13. 2 % 10.0- 14.5 Automated blood platelet count (count/volume) 224 10*3/uL 130-400 Automated blood platelet mean volume measurement 10.3 [foz_us] 7.4-10.4 Automated blood neutrophils/100 leukocytes 46 % 42-75 Automated blood lymphocytes/100 leukocytes 40 % 12-44 Blood monocytes/100 leukocytes 12 % 0-12 Automated blood eosinophils/100 leukocytes 3 % 0-10 Automated blood basophils/100 leukocytes 0 % 0-10 Blood neutrophils automated count (number/volume) 3.8 10*3 1.8-7.8 Blood lymphocytes automated count (number/volume) 3.3 10*3 1.0-4.0 Blood monocytes automated count (number/volume) 1. 0 10*3 0.0-1.0 Automated eosinophil count 0.2 10*3/uL 0 .0-0.3 Automated blood basophil count (count/volume) 0.0 10*3/uL 0.0-0.1 Serum or plasma choriogonadotropin (preg peterson test) detection - 02/01/20 19:15 Serum or plasma choriogonadotropin ( test) de tection NEGATIVE NEGATIVE Comprehensive metabolic panel - 02/01/20 19:15 Serum or plasma sodium measurement (moles/volume) 139 mmol/L 135-145 Serum or plasma potassium measurement (moles/volume) 3.7 mmol/L 3.6-5.0 Serum or plasma chloride measurement (moles/volume) 105 mmol/L 98-107 Carbon dioxide 24 mmol/L 21-32 Serum or plasma anion gap determination (moles/volume) 10 mmol/L 5-14 Serum or plasma urea nitrogen measurement (mass/volume ) 11 mg/dL 7-18 Serum or plasma creatinine measurement (mass/volume) 0.74 mg/dL 0.60-1.30 Serum or plasma urea nitrogen/creatinine mass ratio 15 NRG Serum or plasma creatinine measurement w ith calculation of estimated glomerular filtration rate > NRG Serum or plasma glucose measurement (mass/volume) 93 mg/dL 70-105 Serum or plasma calcium measurement (mass/volume) 9.2 mg/dL 8.5-10.1 Serum or plasma total bilirubin measurement (mass/volu me) 0.2 mg/dL 0.1-1.0 Serum or plasma alkaline phosphatase lois surement (enzymatic activity/volume) 52 U/L 40-136 Serum or plasma aspartate aminotransfera se measurement (enzymatic activity/volume) 18 U/L 5-34 Serum or plasma alanine aminotransferase measurement (enzymatic activity/volume) 14 U/L 0-55 Serum or plasma protein measurement (mass/volume) 7.1 g/dL 6.4-8.2 Serum or plasma albumin measurement (mass/volume) 4.4 g/dL 3.2-4.5 CALCIUM CORRECTED 8.9 mg/dL 8.5-10.1 Fibrin D-dimer FEU measurement in platel et poor plasma (mass/volume) - 02/01/20 19:15 Fibrin D-dimer FEU measurement in platelet poor plasma (mass/volume) 0.39 ug/mL 0.00-0.49 Urinalysis - 02/02/20 12:39 Blood Culture - 02/02/20 12:39 PRELIM CULTURE RESULTS Blood Culture Negativ e, No Growth Day 1 FINAL CULTURE RESULTS Blood Culture Negative , No Growth Day 5 MEDIA PLATED Setup at 13:55 on 02/02/2020 #1 DRAWN AT 12:30, C 46 CULTURE SOURCE left arm Blood Culture - 02/02/20 12:39 PRELIM CULTURE RESULTS Blood Culture Negativ e, No Growth Day 1 FINAL CULTURE RESULTS Blood Culture Negative , No Growth Day 5 MEDIA PLATED Setup at 13:58 on 02/02/2020 #2 DRAWN @ 12:39, C 49 CULTURE SOURCE rt, [id number]\ Mycoplasma - 02/02/20 13:14 Mycoplasma Positive Negative Encounters ACCT No. Visit Date/Time Discharge Status Pt. Type Provider Facility Loc./Unit Complaint [id number] 02/27/2015 09:25:00 02/27/2015 23:59: 59 CLS Outpatient GODWIN SEVILLA APRN [id number] 01/23/2015 11:47:00 01/23/2015 23:59: 59 CLS Outpatient GODWIN SEVILLA APRN [id number] 12/18/2014 16:07:00 12/18/2014 23:59: 59 CLS Outpatient NICOLA MANUEL DO [id number] 12/18/2014 10:25:00 12/18/2014 23:59: 59 CLS Outpatient GODWIN SEVILLA APRN [id number] 12/16/2014 10:01:00 12/16/2014 23:59: 59 [id number] 11/26/2014 14:03:00 11/26/2014 23:59: 59 [facility] [id number] 11/21/2014 08:26:00 11/21/2014 23:59: 59 CLS Outpatient JOSE SILVERIO DDS [id number] 11/10/2014 09:24:00 11/10/2014 23:59: 59 CLS Outpatient FLO GONZALEZ APRN [id number] 10/31/2014 11:08:00 10/31/2014 23:59: 59 [facility] [id number] 10/29/2014 16:35:00 10/29/2014 23:59: 59 CLS Outpatient ELIAS DENNIS APRN [id number] 10/17/2014 11:27:00 10/17/2014 23:59: 59 CLS Outpatient MICHAEL SEVILLA APRNETTE [id number] 09/16/2014 09:30:00 09/16/2014 23:59: 59 CLS Outpatient FLO GONZALEZ APRN Tima [id number] 09/16/2014 09:30:00 09/16/2014 23:59: 59 CLS Outpatient FLO GONZALEZ APRN Tima [id number] 08/01/2014 13:23:00 08/01/2014 23:59: 59 CLS Outpatient ROEL CANOCasimiro GODWIN [id number] 08/01/2014 13:23:00 08/01/2014 23:59: 59 CLS Outpatient MICHAEL SEVILLA APRNETTE [id number] 07/04/2014 08:35:00 07/04/2014 23:59: 59 CLS Outpatient FLO GONZALEZ APRN Tima [id number] 06/10/2014 09:22:00 06/10/2014 23:59: 59 CLS Outpatient ROEL MENG GODWIN [id number] 05/27/2014 08:53:00 05/27/2014 23:59: 59 CLS Outpatient FLO GONZALEZ APRN Tima [id number] 05/08/2014 11:48:00 05/08/2014 23:59: 59 CLS Outpatient ROEL CANOCasimiro GODWIN [id number] 04/10/2014 09:33:00 04/10/2014 23:59: 59 CLS Outpatient WOLF JAMA MD [id number] 03/11/2014 13:00:00 03/11/2014 23:59: 59 CLS Outpatient JASON HUNTER APRN [id number] 03/11/2014 13:00:00 03/11/2014 23:59: 59 CLS Outpatient JASON HUNTER APRN [id number] 12/10/2013 10:52:00 12/10/2013 23:59: 59 CLS Outpatient DALE CANOJASON Kirkpatrick [id number] 10/18/2013 09:59:00 10/18/2013 23:59: 59 CLS Outpatient KELY FIREDMAN DDS [id number] 09/16/2013 12:50:00 09/16/2013 23:59: 59 CLS Outpatient NICOLA MANUEL DO [id number] 09/11/2013 16:55:00 09/11/2013 23:59: 59 CLS Outpatient WOLF JAMA MD [id number] 08/15/2013 12:35:00 08/15/2013 23:59: 59 CLS Outpatient BRIANMYRA CANOJASON Kirkpatrick [id number] 08/01/2013 09:18:00 08/01/2013 23:59: 59 CLS Outpatient NICOLA MANUEL DO [id number] 02/13/2013 13:59:00 02/13/2013 23:59: 59 CLS Outpatient [id number] 01/24/2013 15:27:00 01/24/2013 23:59: 59 CLS Outpatient XIOMARA DO JASON Mathew [id number] 01/16/2013 10:21:00 01/16/2013 23:59: 59 CLS Outpatient NICOLA MANUEL DO [id number] 11/29/2012 15:05:00 11/29/2012 23:59: 59 CLS Outpatient [id number] 09/28/2012 08:28:00 09/28/2012 23:59: 59 [place] [id number] 09/03/2012 15:05:00 09/03/2012 23:59:5 9 CLS Outpatient WOLF JAMA MD [id number] 06/22/2013 09:12:00 Document Registration [id number] 05/15/2013 10:52:00 Document Registration [id number] 05/09/2013 15:22:00 Document Registration [id number] 04/29/2013 08:59:00 Document Registration [id number] 04/26/2013 14:51:00 Document Registration [id number] 04/19/2013 10:48:00 Document Registration [id number] 04/02/2013 13:34:00 Document Registration [id number] 03/26/2013 13:02:00 Document Registration [id number] 03/23/2013 09:54:00 Document Registration [id number] 02/22/2013 12:11:00 Document Registration [id number] 02/01/2020 19:05:00 20:18:00 DIS Outpatient ISMAEL SOL APRN [facility] ER FEVER/SOA SORE THROAT D IZZINESS [id number] 01/14/2020 14:01:00 14:39:00 DIS Outpatient ISMAEL SOL APRN [facility] ER BACK PAIN [id number] 01/13/2020 11:32:00 23:59:59 CLS Outpatient STEPHANIE JIMENEZ 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 SUPERVISOR [facility] RAD HEADACHE [id number] 11/16/2019 15:04:00 17:03:00 DIS Emergency ERIKA UNGER MD [facility] ER HEADACHE [id number] 10/30/2019 21:52:00 01:07:00 DIS Outpatient CLAUDY MIRANDA BLANTON V ia [facility] ER SEIZURE [id number] 07/28/2019 16:19:00 18:00:00 DIS Emergency CLAUDY MIRANDA BLANTON a [facility] ER RETAINING FLUID [id number] 07/26/2019 18:34:00 19:07:00 DIS Emergency ISMAEL SOL APRN [facility] ER JAW PAIN [id number] 07/25/2019 19:29:00 19:50:00 DIS Emergency ISMAEL SOL APRN [facility] ER DENTAL PAIN [id number] 07/23/2019 14:45:00 23:59:59 CLS Outpatient DAKSHA ROJAS DO S [facility] RAD CHRONIC PELVIC PAIN [id number] 06/25/2019 15:23:00 23:59:59 CLS Outpatient STEPHANIE JIMENEZ APRN [facility] RAD RADICULOPATHY, LUMBAR REGION [id number] 06/22/2019 09:24:00 12:35:00 DIS Emergency SUNITA BERNAL [facility] ER BACK PAIN [id number] 05/29/2019 14:15:00 23:59:59 CLS Outpatient STEPHANIE JIMENEZ APRN [facility] RAD BACK PAIN [id number] 05/27/2019 20:35:00 22:59:00 DIS Emergency MIRANDA LOCO DO a [facility] ER ABD PAIN [id number] 03/04/2019 15:21:00 16:58:00 DIS Emergency CORNEL JONES, ERIKA Shin [facility] ER LOWER BACK/PELVIS PAIN [id number] 02/28/2019 08:05:00 23:59:59 CLS Outpatient DARY REDMAN MD [facility] RAD LLQ PAIN,NAUSEA [id number] 02/18/2019 07:31:00 23:59:59 CLS Outpatient DARY REDMAN MD [facility] RAD LLQ PAIN, NAUSEA [id number] 08/05/2018 20:11:00 23:00:00 DIS Emergency ISMAEL SOL APRN [facility] ER ABD PAIN [id number] 07/11/2018 12:50:00 23:59:59 CLS Outpatient DAVID SANDERS MD [facility] CARD ANTERIOR CHEST WALL ELLEN N,HEART PALPITATIONS [id number] 07/02/2018 07:47:00 23:59:59 CLS Outpatient DAVID SANDERS MD [facility] CARD ANTERIOR CHEST WALL ELLEN N,HEART PALPITATIONS [id number] 05/04/2018 08:44:00 09:11:00 DIS Outpatient JENNIFER MAYES MD [facility] REHAB PELVIC FLOOR WE AKNESS [id number] 04/27/2018 18:44:00 19:17:00 DIS Emergency ISMAEL SOL APRN [facility] ER JAW AND BACK PAIN [id number] 02/02/2018 08:37:00 018 23:59:59 CLS Preadmit DAKSHA JOHNS DO Tima [facility] RAD M54.16 RADICULOPATHY [id number] 01/09/2018 00:07:00 018 01:21:00 DIS Emergency MIRANDA LOCO DO a [facility] ER SEVERE BACK PAIN GOES D OWN INTO LEGS HIPS [id number] 12/21/2017 01:43:00 018 02:17:00 DIS Emergency DONNELL JONES, CALVIN Kiser [facility] ER POST OP ABD BRANDIN HAZEL BLEEDING THRU,VERY PAINFULL [id number] 12/20/2017 10:50:00 018 16:50:00 DIS Outpatient JENNIFER MAYES MD [facility] ENDOMETRIOSIS,C HRONIC PELVIC PAIN [id number] 11/30/2017 10:02:00 018 10:40:00 DIS Outpatient JENNIFER MAYES MD [facility] PREOP ENDOMETRIOSIS, CHRONIC PELVIC PAIN [id number] 04/05/2017 09:36:00 017 23:59:59 CLS Outpatient LISA FLO Tima SUAZO [facility] RAD R10.2 PELVIC PAIN [id number] 02/03/2017 09:42:00 017 23:59:59 CLS Preadmit JENNIFER MAYES MD [facility] REHAB LBP TWO MONTHS ; S/P HYSTERECTOMY [id number] 02/02/2017 12:09:00 017 12:47:00 DIS Emergency JESSIE ROBERTS MD [facility] ER DENTAL/JAW PAIN [id number] 01/09/2017 10:50:00 017 09:45:00 DIS Outpatient JENNIFER MAYES MD [facility] CPP;DUB;ENDOMET RIOSIS [id number] 01/04/2017 12:09:00 02/22/2 017 12:30:00 DIS Outpatient JENNIFER MAYES MD Via [facility] PREOP CPP;DUB;ENDOMET RIOSIS [id number] 12/16/2016 00:59:00 017 02:52:00 DIS Emergency DONNELL JONES, CALVIN Kiser [facility] ER NAUSEA,FEVER,MENDEZ D BABY ON 11-29-16 [id number] 12/02/2016 10:48:00 017 14:00:00 DIS Emergency SUNITA BERNAL [facility] ER PALPITATIONS/BLURRY CHUCK [id number] 11/29/2016 17:45:00 017 13:30:00 DIS Inpatient JENNIFER MAYES MD [facility] LDRP LABOR [id number] 11/26/2016 13:04:00 017 15:11:00 DIS Outpatient JENNIFER MAYES MD Via [facility] WSo RIB PAIN/LOWER BACK PAIN [id number] 11/08/2016 18:28:00 016 21:23:00 DIS Outpatient JENNFIER MAYES MD [facility] WSo LOWER BACK PAIN /RIB PAIN/ABD PAIN/GROIN PAIN [id number] 10/05/2016 12:03:00 016 23:59:59 CLS Outpatient JENNIFER MAYES MD Via [facility] WSo RH NEGATIVE IN [id number] 09/14/2016 12:52:00 016 13:45:00 DIS Outpatient JENNIFER MAYES MD Via [facility] WSo LOOSING MUCUS P LUG 26 WKS PREG [id number] 07/22/2016 16:02:00 016 19:50:00 DIS Emergency SUNITA BERNAL [facility] ER FEVER/CANNOT URINATE [id number] 06/29/2016 14:38:00 016 18:17:00 DIS Emergency [facility] [place] MD, REZA D [facility] ER VAG BLEEDING 15 WKS PREG [id number] 03/23/2016 21:42:00 01:40:00 DIS Emergency CLAUDY MIRANDAMaddy jordan [facility] ER CONFUSED,DROWSY [id number] 01/02/2016 01:08:00 01:43:00 DIS Emergency [facility] MIRANDA Jacinta jordan [facility] ER RT SIDE OF FACE PAINFUL ,DENTAL PAIN [id number] 11/04/2015 14:43:00 23:59:59 CLS Outpatient FELICIA RESTREPO APRN [facility] RAD HISTORY OF ENDO METRIOSIS [id number] 10/10/2015 16:42:00 18:09:00 DIS Emergency ISMAEL SOL APRN [facility] ER HIP/BACK PAIN - POSSIBL Y [id number] 08/31/2015 17:50:00 19:59:00 DIS Emergency ISMAEL SOL APRN [facility] ER SEIZURE [id number] 08/26/2015 03:31:00 05:08:00 DIS Emergency [place] MIRANDA BLANTON [facility] ER RT SIDE ABD PAIN [id number] 05/18/2015 11:11:00 12:42:00 DIS Emergency ISMAEL SOL APRN [facility] ER ABD/LOWER BACK PAIN UTI SYMPTOMS [id number] 02/26/2015 09:00:00 23:59:59 CLS Preadmit FLO GONZALEZ COST MANAGER Via [facility] CARD PALPITATIONS [id number] 11/27/2014 08:42:00 015 00:01:00 DIS Outpatient FLO GONZALEZ COST MANAGER Via [facility] CARD PALPITATIONS [id number] 12/09/2014 13:03:00 14:48:00 DIS Emergency ISMAEL SOL APRN [facility] ER IRR HEART RATE [id number] 11/28/2014 21:04:00 015 21:30:00 DIS Emergency ISMAEL SOL APRN [facility] ER TOOTH ACHE [id number] 09/18/2014 10:34:00 11:11:00 DIS Outpatient JOSE FRIEDMAN MD Via [facility] REHAB LUMBAGO AND CERVICALGIA [id number] 09/19/2014 17:05:00 014 18:13:00 DIS Emergency SUNITA BERNAL [facility] ER L SIDE FACIAL/DENTAL P AIN [id number] 08/11/2014 14:55:00 23:59:59 CLS Outpatient MADL, FLO L COST MANAGER [facility] RAD LBP [id number] 08/04/2014 15:27:00 17:54:00 DIS Emergency ISMAEL SOL APRN [facility] ER FALL [id number] 06/05/2014 15:36:00 014 16:31:00 DIS Emergency REZA CORONADO MD [facility] ER CHEST CONGESTIO N, COUGH [id number] 05/01/2014 01:24:00 014 03:36:00 DIS Emergency MIGDALIA RAMON DO [facility] ER BACK PAIN [id number] 04/24/2014 08:45:00 23:59:59 CLS Outpatient JENNIFER MAYES MD [facility] RAD RUQ PAIN,GOITER [id number] 03/22/2014 13:08:00 11:55:00 DIS Inpatient JENNIFER MAYES MD [facility] WS LABOR [id number] 03/20/2014 21:50:00 014 09:00:00 DIS Inpatient JENNIFER MAYES MD [facility] WS RIB PAIN [id number] 03/14/2014 00:56:00 014 01:44:00 DIS [facility] [id number] 02/11/2014 21:51:00 014 22:50:00 DIS Outpatient JENNIFER MAYES MD [facility] C/O CRAMPING [id number] 11/13/2013 15:06:00 014 18:10:00 DIS Outpatient JENNIFER MAYES MD [facility] WATERY DISCHARG E SINCE [id number] 05/20/2013 08:48:00 013 23:59:59 CLS Outpatient WOLF JAMA MD [facility] RAD LOW BACK PAIN,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,BLADDER DISFUNCT [id number] 04/30/2013 14:31:00 013 16:18:00 DIS Emergency MEJIA JONES, YAW Fernando [facility] ER LOW BACK/RT HIP PAIN AB SCESS RIGHT THIGH [id number] 04/20/2013 11:49:00 013 13:40:00 DIS Emergency ARMANDO JONES, JESSIE Workman [facility] ER RAPID HEART BEAT, SOA [id number] 05/18/2015 11:12:00 Document Registration [id number] 05/18/2015 11:12:00 Document Registration [id number] 01/21/2015 00:32:00 Document Registration [id number] 09/25/2014 14:23:00 Document Registration [id number] 12/11/2012 16:00:00 Document Registration [id number] 12/08/2012 15:53:00 Document Registration [id number] 01/26/2012 09:17:00 Document Registration [id number] 01/18/2012 18:33:00 Document Registration [id number] 09/12/2011 15:20:00 Document Registration [id number] 06/27/2011 15:54:00 Document Registration [id number] 05/26/2010 22:10:00 Document Registration [id number] 05/06/2010 09:15:00 Document Registration [id number] 01/07/2020 13:45:00 01/07/2020 23:59:5 9 CLS Outpatient LEAH PACE L[facility] [id number] 03/11/2019 09:40:00 Document Registration [id number] 05/25/2018 11:20:00 Document Registration [id number] 05/17/2018 10:00:00 Document Registration [id number] 03/30/2018 13:05:00 Document Registration [id number] 02/21/2018 10:00:00 Document Registration [id number] 02/02/2020 12:12:00 02/02/2020 14:13 :00 DIS Outpatient GEETA ARCHER [facility] ER [id number] 02/02/2020 12:47:51 Document Registration
[2020-02-10 18:35] LABS: BASOPHILS % (AUTO) 0 % (0-10); EOSINOPHILS # (AUTO) 0.1 10^3/uL (0.0-0.3); EOSINOPHILS % (AUTO) 1 % (0-10); HEMATOCRIT 45 % (35-52); HEMOGLOBIN 15.2 G/DL (11.5-16.0); LYMPHOCYTES # (AUTO) 2.7 X 10^3 (1.0-4.0); LYMPHOCYTES % (AUTO) 28 % (12-44); MEAN CORPUSCULAR HEMOGLOBIN 29 PG (25-34); MEAN CORPUSCULAR HGB CONC 34 G/DL (32-36); MEAN CORPUSCULAR VOLUME 87 FL (80-99); MONOCYTES # (AUTO) 0.8 X 10^3 (0.0-1.0); MONOCYTES % (AUTO) 8 % (0-12); NEUTROPHILS # (AUTO) 6.3 X 10^3 (1.8-7.8); NEUTROPHILS % (AUTO) 63 % (42-75); PLATELET COUNT 275 10^3/uL (130-400); RED CELL DISTRIBUTION WIDTH 13.4 % (10.0-14.5); WHITE BLOOD COUNT 9.9 10^3/uL (4.3-11.0)
[2020-02-10 18:44] LABS: INR 0.9 (0.8-1.4); PROTHROMBIN TIME PATIENT 12.9 SEC (12.2-14.7)
[2020-02-10 18:52] LABS: ALANINE AMINOTRANSFERASE 18 U/L (0-55); ALKALINE PHOSPHATASE 60 U/L (40-136); BILIRUBIN,TOTAL 0.3 MG/DL (0.1-1.0); BUN/CREATININE RATIO 10; CALCIUM 9.5 MG/DL (8.5-10.1); CARBON DIOXIDE 26 MMOL/L (21-32); CHLORIDE 101 MMOL/L (98-107); CREATININE SERUM 0.79 MG/DL (0.60-1.30); GFR ESTIMATED > 60; GLUCOSE 98 MG/DL (70-105); POTASSIUM 3.6 MMOL/L (3.6-5.0); SODIUM 140 MMOL/L (135-145); TOTAL PROTEIN 8.4 GM/DL (6.4-8.2)
[2020-02-10] MEDS ORDERED: diphenhydrAMINE 50 MG/ML INJ (BENADRYL) IVP ONE (19:15)
[2020-02-10] MEDS ORDERED: FAMOTIDINE 20MG/2ML IV (PEPCID) IVP ONE (19:15)
--- NOTE | 2020-02-10 19:15 | ED Cough/URI ---
General Chief Complaint: Respiratory Problems Stated Complaint: DX WITH PNEUMONIA,LOST VOICE,COUGH Nursing Triage Note: pt presents to ed with complaints of not feeling well for 2 weeks. pt reports sob, pain in neck. pt states she wazs tested for covid and the flu 2 weeks ago and both were negative. Sepsis Screen: No Definite Risk Source: patient History of Present Illness Date Seen by Provider: Feb 10, 2020 Time Seen by Provider: 18:40 Initial Comments PT ARRIVES VIA POV FROM HOME STATES SHE HAS BEEN SICK FOR THE LAST 2 WEEKS WITH NON-PRODUCTIVE COUGH AND FE FABI TEMP WAS 102.5 LAST NIGHT--HAS NOT TAKEN ANYTHING FOR FEVER STATES SHE WAS SEEN AT [facility] 02/03/20 FOR THIS PROBLEM, AND STATES SHE WAS DX WITH MYCOPLASMA PNEUMONIA AND GIVEN RX FOR DOXYCYCLINE. NO OTHER RX'S GIVEN. STATES SHE "TESTED NEGATIVE FOR COVID-19" ADN THE FLU AT THAT TIME. STATES SHE FOLLOWED UP WITH DR. MONTEJO'S INTERVENTION TEACHER ON 02/04/20 AND WAS GIVEN PREDNISONE, ALBUTEROL NEBULIZER AND INHALER FOLLOWED UP WITH DR. MONTEJO'S INTERVENTION TEACHER AGAIN TODAY BECAUSE SHE IS NOT BETTER, AND WAS GIVEN RX FOR LEVAQUIN STATES SHE TOOK HER FIRST DOSE THIS EVENING, APPROXIMATELY 30 MINUTES PRIOR TO ARRIVAL, AND WITHIN 10 MINUTES OF TAKING IT, SHE LOST HER VOICE NO PROBLEMS SWALLOWING OR BREATHING AND NO WHEEZING STATES HER CHEST FEELS A LITTLE TIGHT, BUT HAS ANXIETY, SO IS NOT UNUSUAL NO RASH NO ITCHING NO SWELLING ANYWHERE NO HEADACHE NO BODY ACHES NO ACTUAL THROAT PAIN HAS NOT TAKEN ANY THING ELSE FOR SYMPTOMS AT ANY TIME NO HOUSEHOLD MEMBERS ARE ILL AND NO KNOWN CONTACT WITH COVID 19 VIRUS. 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 SEEN HERE 01/14/20 FOR LOW BACK PAIN SEEN HERE 02/01/20 FOR SUBJECTIVE DIZZINESS AND DYSPNEA--CLAIMED AT THAT TIME HER SYMPTOMS HAD BEEN GOING ON FOR A WEEK, AND HAD SEEN DR. MONTEJO AT [facility], AND CLAIMED THAT SHE REPORTEDLY "TESTED NEGATIVE FOR STREP, FLU AND ANNE VIRUS" AT THAT TIME IN HIS OFFICE. AND WAS GIVEN RX FOR AN INHALER. WORK UP WAS NEGATIVE AT THAT ER VISIT PT WITH MULTITUDE OF VISITS HERE, WELL OTHER LOCAL FACILITIES. MOST VISITS FOR VARIOUS PAIN COMPLAINTS. PT ALSO WITH EXTENSIVE HISTORY OF BENZODIAZEPINE ABUSE, WELL AN EXTENSIVE PSYCH HISTORY. HAS HAD SEIZURES--SUSPECTED TO BE DUE TO BENZODIAZEPINE WITHDRAWL PCP: [facility], ALSO SEES DR. MONTEJO Allergies and Home Medications Allergies Coded Allergies: Penicillins (Unverified Allergy, Mild, PT ABLE TO TAKE ANCEF, 03/26/14) diclofenac (Unverified Allergy, Unknown, 01/21/15) divalproex sodium (Verified Allergy, Unknown, 08/26/15) Home Medications Azithromycin 500 Mg Tablet, 500 MG PO DAILY Prescribed by: MIRANDA LOCO on 02/10/201950 Cefdinir 300 Mg Capsule, 300 MG PO BID Prescribed by: MIRANDA LOCO on 02/10/201950 Cefprozil 500 Mg Tablet, 500 MG PO BID Prescribed by: MIRANDA LOCO on 10/31/197 Furosemide 40 Mg Tablet, 40 MG PO DAILY Prescribed by: MIRANDA LOCO on 07/28/191753 Hydroxyzine HCl 25 Mg Tablet, 25-50 MG PO Q6H Prescribed by: MIRANDA LOCO on 10/31/197 Methocarbamol 750 Mg Tablet, 750 MG PO Q4H PRN for PAIN-MODERATE (5-7) Prescribed by: ISMAEL SOL on 01/14/201419 Potassium Chloride 20 Meq Tab.er.prt, 20 MEQ PO DAILY Prescribed by: MIRANDA LOCO on 07/28/191753 Prednisone 20 Mg Tab, 40 MG PO DAILY Prescribed by: ISMAEL SOL on 01/14/201419 Prednisone 20 Mg Tab, 40 MG PO DAILY Prescribed by: ISMAEL SOL on 02/01/202007 Tramadol HCl 50 Mg Tablet, 100 MG PO Q6H Prescribed by: ERIKA UNGER MD on 11/16/19 165 Patient Home Medication List Home Medication List Reviewed: Yes Review of Systems Review of Systems Constitutional: see HPI, fever EENTM: see HPI, hoarseness; No ear pain, No nose congestion, No throat pain, No throat swelling Respiratory: see HPI, cough; No phlegm, No short of breath, No wheezing Cardiovascular: see HPI; No edema, No palpitations, No syncope, No vascular heart diseas Gastrointestinal: no symptoms reported Genitourinary: no symptoms reported : No (S/P HYST) Musculoskeletal: no symptoms reported Skin: no symptoms reported; No pruritus, No rash Psychiatric/Neurological: No Symptoms Reported; Denies Headache Hematologic/Lymphatic: No Symptoms Reported Immunological/Allergic: no symptoms reported Past Xaagpgd-[id number]-Fybvnv Hx Past Med/Social Hx: Reviewed and Corrections made Patient Social History Alcohol Use: Occasionally Uses Recreational Drug Use: Yes (BENZODIAZEPINE ABUSE) Drug of Choice: BENZODIAZEPINE ABUSE Smoking Status: Current Everyday Smoker (1 PPD) Type Used: Cigarettes (1 PPD) 2nd Hand Smoke Exposure: Yes Recent Foreign Travel: No Contact w/Someone Who Travel: No Recent Infectious Disease Expo: No Recent Hopitalizations: No Immunizations Up To Date Tetanus Booster (TDap): Less than 5yrs PED Vaccines UTD: Yes Date of Influenza Vaccine: Aug 30, 2017 Seasonal Allergies Seasonal Allergies: No Past Medical History Surgeries: Yes (LAPAROTOMY; HYST ; LSO; ) Abdominal, Adenoidectomy, Appendectomy, Hysterectomy, Oophorectomy, Tonsillectomy Respiratory: Yes Asthma Cardiac: Yes (Hx. 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 Sexually Transmitted Disease: No HIV/AIDS: No Genitourinary: No Gastrointestinal: No Musculoskeletal: Yes (chronic back pain; MULITPLE VARIOUS PAIN COMPLAINTS) Degenerate Disk Disease, Arthritis, Back Injury, Scoliosis, Chronic Back Pain Endocrine: No HEENT: Yes (DENTURES) Cancer: No Psychosocial: Yes (EXTENSIVE PSYCH HISTORY;BENZODIAZEPINE ABUSE) Anxiety, PTSD, Bipolar, Depression Integumentary: No Blood Disorders: No Adverse Reaction/Blood Tranf: No Family Medical History Family history: Hypertension (mother, MGM, and PGM) Heart disease (mother and father) History of - anemia (family Hx of blood transfusions) Infertile Kidney disease (MGM) No Pertinent Family Hx Physical Exam Vital Signs - First Documented 02/10/20 02/10/20 18:47 20:06 Temp 35.8 Pulse 125 Resp 20 B/P (MAP) 114/86 (95) Pulse Ox 98 O2 Delivery Room Air Capillary Refill : Less Than 3 Seconds Height: 5'6.00" Weight: 130lbs. 0.0oz. 58.425884ko; 23.00 BMI Method:Stated General Appearance: WD/WN, no apparent distress, other (DOES NOT APPEAR ILL IN ANY WAY. NO COUGH OR DYSPNEA NOTED. TALKS IN FORCED WHISPER. ) HEENT: PERRL/EOMI, normal ENT inspection, TMs normal, pharynx normal, other (NO NASAL CONGESTION, NO SINUS TENDERNESS. NO SWELLING OR ERYTHEMA TO PHARYNX, TONGUE, OR UVULA. ) Neck: non-tender, full range of motion, supple, normal inspection; No lymphadenopathy (R) Respiratory: normal breath sounds, no respiratory distress, no accessory muscle use; No stridor Cardiovascular: regular rate, rhythm, no murmur Gastrointestinal: soft Extremities: normal inspection, normal capillary refill Neurologic/Psychiatric: research project manager II-XII nml as tested, no motor/sensory deficits, alert, normal mood/affect, oriented x 3 Skin: normal color, warm/dry; No rash Focused Exam Lactate Level 02/10/20 18:20: Lactic Acid Level 1.48 Lactic Acid Level Laboratory Tests Test 02/10/20 18:20 Lactic Acid Level 1.48 MMOL/L (0.50-2.00) Progress/Results/Core Measures Suspected Sepsis Recent Fever Within 48 Hours: No Infection Criteria Present: None New/Unexplained Altered Menta: No Sepsis Screen: No Definite Risk SIRS Temperature: Pulse: 125 Respiratory Rate: 20 Laboratory Tests 02/10/20 18:20: White Blood Count 9.9 Blood Pressure 114 /86 Mean: 95 02/10/20 18:20: Lactic Acid Level 1.48 Laboratory Tests 02/10/20 18:20: Creatinine 0.79, INR Comment 0.9, Platelet Count 275, Total Bilirubin 0.3 Results/Orders Lab Results Laboratory Tests Test 02/10/20 18:20 02/10/20 18:35 02/10/20 19:30 Range/Units White Blood Count 9.9 4.3-11.0 10^3/uL Red Blood Count 5.20 4.35-5.85 10^6/uL Hemoglobin 15.2 11.5-16.0 G/DL Hematocrit 45 35-52 % Mean Corpuscular Volume 87 80-99 FL Mean Corpuscular Hemoglobin 29 25-34 PG Mean Corpuscular Hemoglobin Concent 34 32-36 G/DL Red Cell Distribution Width 13.4 10.0-14.5 % Platelet Count 275 130-400 10^3/uL Mean Platelet Volume 10.0 7.4-10.4 FL Neutrophils (%) (Auto) 63 42-75 % Lymphocytes (%) (Auto) 28 12-44 % Monocytes (%) (Auto) 8 0-12 % Eosinophils (%) (Auto) 1 0-10 % Basophils (%) (Auto) 0 0-10 % Neutrophils # (Auto) 6.3 1.8-7.8 X 10^3 Lymphocytes # (Auto) 2.7 1.0-4.0 X 10^3 Monocytes # (Auto) 0.8 0.0-1.0 X 10^3 Eosinophils # (Auto) 0.1 0.0-0.3 10^3/uL Basophils # (Auto) 0.0 0.0-0.1 10^3/uL Erythrocyte Sedimentation Rate 4 0-20 MM/HR Prothrombin Time 12.9 12.2-14.7 SEC INR Comment 0.9 0.8-1.4 Activated Partial Thromboplast Time 31 24-35 SEC D-Dimer 0.36 0.00-0.49 UG/ML Sodium Level 140 135-145 MMOL/L Potassium Level 3.6 3.6-5.0 MMOL/L Chloride Level 101 98-107 MMOL/L Carbon Dioxide Level 26 21-32 MMOL/L Anion Gap 13 5-14 MMOL/L Blood Urea Nitrogen 8 7-18 MG/DL Creatinine 0.79 0.60-1.30 MG/DL Estimat Glomerular Filtration Rate > 60 BUN/Creatinine Ratio 10 Glucose Level 98 70-105 MG/DL Lactic Acid Level 1.48 0.50-2.00 MMOL/L Calcium Level 9.5 8.5-10.1 MG/DL Corrected Calcium 8.5-10.1 MG/DL Total Bilirubin 0.3 0.1-1.0 MG/DL Aspartate Amino Transf (AST/SGOT) 19 5-34 U/L Alanine Aminotransferase (ALT/SGPT) 18 0-55 U/L Alkaline Phosphatase 60 40-136 U/L Lactate Dehydrogenase 175 125-220 U/L C-Reactive Protein High Sensitivity 0.21 0.00-0.50 MG/DL Total Protein 8.4 H 6.4-8.2 GM/DL Albumin 5.0 H 3.2-4.5 GM/DL Procalcitonin 0.01 <0.10 NG/ML Group A Streptococcus Screen NEGATIVE NEGATIVE Urine Color YELLOW Urine Clarity CLEAR Urine pH 6.5 5-9 Urine Specific [place] 1.015 L 1.016-1.022 Urine Protein NEGATIVE NEGATIVE Urine Glucose (UA) NEGATIVE NEGATIVE Urine Ketones NEGATIVE NEGATIVE Urine Nitrite NEGATIVE NEGATIVE Urine Bilirubin NEGATIVE NEGATIVE Urine Urobilinogen 0.2 < = 1.0 MG/DL Urine Leukocyte Esterase NEGATIVE NEGATIVE Urine RBC (Auto) TRACE-I NEGATIVE Urine RBC 0-2 /HPF Urine WBC NONE /HPF Urine Squamous Epithelial Cells 2-5 /HPF Urine Crystals NONE /LPF Urine Bacteria TRACE /HPF Urine Casts NONE /LPF Urine Mucus NEGATIVE /LPF Urine Culture Indicated NO Micro Results Microbiology 02/10/20 Influenza Types A,B Antigen (JESSICA) - Final, Complete My Orders Orders - MIRANDA LOCO DO Chest 1 View, Ap/Pa Only (02/10/20 19:06) Famotidine Injection (Pepcid Injection) (02/10/20 19:15) Diphenhydramine Injection (Benadryl Inje (02/10/20 19:15) Mycoplasma Antibodies (02/10/20 19:07) Medications Given in ED Current Medications Medications Dose Ordered Sig/Antonia Route Start Time Stop Time Status Last Admin Dose Admin Diphenhydramine HCl 50 mg ONCE ONCE IVP 02/10/20 19:15 02/10/20 19:16 DC 02/10/20 19:21 50 MG Famotidine 40 mg ONCE ONCE IVP 02/10/20 19:15 02/10/20 19:16 DC 02/10/20 19:20 40 MG Vital Signs/I&O 02/10/20 02/10/20 18:47 20:06 Temp 35.8 35.8 Pulse 125 108 Resp 20 20 B/P (MAP) 114/86 (95) 116/85 (95) Pulse Ox 98 99 O2 Delivery Room Air Capillary Refill : Less Than 3 Seconds Blood Pressure Mean: 95 Progress Note : Progress Note UNEVENTFUL ER STAY NO RESPIRATORY SYMPTOMS OF ANY KIND DURING ENTIRE ER STAY. VITALS STABLE, NO FEVER. VOICE IS LESS HOARSE ON DISMISSAL PT WAS ADVISED TO SELF QUARANTINE HERSELF AND ALL HOUSEHOLD MEMBERS AND CONTACTS FOR THE NEXT 14 DAYS ECG Initial ECG Impression Date: Feb 10, 2020 Initial ECG Impression Time: 18:44 Initial ECG Rate: 103 Initial ECG Impression: Normal Diagnostic Imaging Comments CXR--NO ACUTE PROCESS, PER RADIOLOGIST REPORT AT 1942 Reviewed: Reviewed by Me Departure Impression Primary Impression: Hoarseness Additional Impressions: QUESTIONABLE ADVERSE MEDICATION REACTION POSSIBLE ANXIETY REACTION SELF REPORTED FEVER AND COUGH COVID 19 P.U.I. Disposition: 01 HOME, SELF-CARE Condition: Stable Departure-Patient Inst. Referrals: NEWTON MONTEJO MD (PCP/Family) Primary Care Physician Patient Instructions: COVID19, Cough, Adult (DC), Cough, Runny Nose, and the Common Cold (DC), Spasmodic Dysphonia Add. Discharge Instructions: STOP LEVAQUIN CONTINUE YOUR OTHER MEDICATIONS PRESCRIBED TYLENOL NEEDED FOR PAIN OR FEVER OVER 101 SELF QUARANTINE YOURSELF AND ALL HOUSEHOLD MEMBERS FOR THE NEXT 14 DAYS RETURN TO ER IF SYMPTOMS WORSEN All discharge instructions reviewed with patient and/or family. Voiced understanding. Scripts Cefdinir (Cefdinir) 300 Mg Capsule 300 MG PO BID, #20 CAP Prov: MIRANDA LOCO DO 02/10/20 Azithromycin (Zithromax) 500 Mg Tablet 500 MG PO DAILY for 5 Days, #5 TAB Prov: MIRANDA LOCO DO 02/10/20 MIRANDA LOCO DO Feb 10, 2020 19:15
--- NOTE | 2020-02-10 19:32 | Diagnostic Imaging Report ---
EXAMINATION: Chest 1 view HISTORY: Shortness of breath. Neck pain. COMPARISON: Chest radiograph on 02/01/2020. FINDINGS: The lung volumes are normal. No focal consolidation is seen. No large pleural effusion or pneumothorax is seen. The cardiomediastinal silhouette is normal in size and contour. No acute osseous abnormality is seen. IMPRESSION: 1. No acute pleuroparenchymal process. Dictated by: Dictated on workstation # [id number]
[2020-02-10 19:40] LABS: BILIRUBIN,URINE NEGATIVE (NEGATIVE); CLARITY,URINE CLEAR; COLOR,URINE YELLOW; GLUCOSE, URINE (UA) NEGATIVE (NEGATIVE); KETONES,URINE NEGATIVE (NEGATIVE); LEUKOCYTE ESTERASE ,URINE NEGATIVE (NEGATIVE); NITRITE,URINE NEGATIVE (NEGATIVE); PH,URINE 6.5 (5-9); PROTEIN,URINE NEGATIVE (NEGATIVE)
[2020-02-10 19:46] LABS: BACTERIA,URINE TRACE /HPF; RBC,URINE 0-2 /HPF
[2020-02-10] MEDS ORDERED: AZIT500T PO (19:51)
[2020-02-10] MEDS ORDERED: CEFD300C3 PO (19:51)
[2020-02-10 20:06] VITALS: BP 116/85
== END 2020-02-10 20:06 | disposition home or self-care (01) ==
LOC: EDUNIT# 17:53 → ER 17:54
DX: R49.0 Dysphonia (principal); R50.9 Fever, unspecified; R05 Cough; F41.9 Anxiety disorder, unspecified; F31.9 Bipolar disorder, unspecified; F43.10 Post-traumatic stress disorder, unspecified; M54.9 Dorsalgia, unspecified; G89.29 Other chronic pain; J45.909 Unspecified asthma, uncomplicated; I47.1 Supraventricular tachycardia; F17.210 Nicotine dependence, cigarettes, uncomplicated; Z79.899 Other long term (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
CPT/HCPCS: 36415; 71045; 80053; 81000; 82728; 83605; 83615; 84145; 85025; 85379; 85610; 85652; 85730; 86141; 86738; 87040; 87430; 87635; 87804

== ENCOUNTER 2020-02-12 14:17 | Emergency (ER) | payer OTHER ==
[~2020-02-12] VITALS: Ht 167 cm; Wt 68.0 kg
[~2020-02-12 14:17] MED LIST changes: +AZIT500T PO; +CEFD300C3 PO
[2020-02-12 14:18] VITALS: BP 125/83
[2020-02-12] MEDS ORDERED: LACTATED RINGERS 1,000 ML IV ONE (14:45)
--- NOTE | 2020-02-12 15:03 | ED General ---
General Chief Complaint: General Problems/Pain Stated Complaint: DISORIENTED Nursing Triage Note: Pt reports being SOA and having fever x2 weeks. Pt reports she has been tested for COVID twice with negative results both times. Pt has been diagnosed with mycoplasma pneumonia. Pt also complaints of GI issues and states she feels she is going to have a seizure. 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 Pt reports she is currently taking ativan. Nursing Sepsis Screen: Possible Severe Sepsis Risk Source of Information: Patient Exam Limitations: No Limitations History of Present Illness Date Seen by Provider: Feb 12, 2020 Time Seen by Provider: 14:37 Initial Comments Here with a variety of vague complaints including intermittent shortness of air over the last couple of weeks. She has been tested for coded most recently 2 days ago and that was negative. She was initiated on azithromycin and cefdinir. Since she's had some GI issues including upset stomach and reflux. Reported that she had some blood in her stool but was not hers descriptive of that. She states that she feels foggy. She is on benzodiazepines for seizures and states she is taking that as directed. She recently had L of that and still has some. Reports eating and drinking okay. Aside from the loose stools, denies other GI complaints. She states that she fell a few days ago and hit the back of her head. No consistent bruising and no lacerations noted or reported. Timing/Duration: 1-2 Days Severity: Moderate Associated Systoms: No Chest Pain; Cough, Fever/Chills (Subjective); No Naus ea/Vomiting, No Shortness of Air; Weakness Allergies and Home Medications Allergies Coded Allergies: Penicillins (Unverified Allergy, Mild, PT ABLE TO TAKE ANCEF, 03/26/14) diclofenac (Unverified Allergy, Unknown, 01/21/15) divalproex sodium (Verified Allergy, Unknown, 08/26/15) Home Medications Azithromycin 500 Mg Tablet, 500 MG PO DAILY Prescribed by: MIRANDA LOCO on 02/10/201950 Cefdinir 300 Mg Capsule, 300 MG PO BID Prescribed by: MIRANDA LOCO on 02/10/201950 Cefprozil 500 Mg Tablet, 500 MG PO BID Prescribed by: MIRANDA LOCO on 10/31/197 Furosemide 40 Mg Tablet, 40 MG PO DAILY Prescribed by: MIRANDA LOCO on 07/28/191753 Hydroxyzine HCl 25 Mg Tablet, 25-50 MG PO Q6H Prescribed by: MRIANDA LOCO on 10/31/19 0008 Methocarbamol 750 Mg Tablet, 750 MG PO Q4H PRN for PAIN-MODERATE (5-7) Prescribed by: ISMAEL SOL on 01/14/20 142 Potassium Chloride 20 Meq Tab.er.prt, 20 MEQ PO DAILY Prescribed by: MIRANDA LOCO on 07/28/191753 Prednisone 20 Mg Tab, 40 MG PO DAILY Prescribed by: ISMAEL SOL on 01/14/20 142 Prednisone 20 Mg Tab, 40 MG PO DAILY Prescribed by: ISMAEL SOL on 02/01/202007 Tramadol HCl 50 Mg Tablet, 100 MG PO Q6H Prescribed by: ERIKA UNGER MD on 11/16/19 165 Patient Home Medication List Home Medication List Reviewed: Yes Review of Systems Review of Systems Constitutional: see HPI; No chills; fever, malaise EENTM: No nose congestion Respiratory: cough, short of breath; No stridor, No wheezing Cardiovascular: no symptoms reported Gastrointestinal: see HPI, abdominal pain Genitourinary: no symptoms reported : No Skin: no symptoms reported Psychiatric/Neurological: No Symptoms Reported All Other Systems Reviewed Negative Unless Noted: Yes Past Faqjisf-Mlxupj-Dnipwz Hx Past Med/Social Hx: Reviewed Nursing Past Med/Soc Hx Patient Social History Alcohol Use: Denies Use Recreational Drug Use: No Drug of Choice: BENZODIAZEPINE ABUSE Smoking Status: Current Everyday Smoker Type Used: Cigarettes 2nd Hand Smoke Exposure: Yes Recent Foreign Travel: No Contact w/Someone Who Travel: No Recent Infectious Disease Expo: No Recent Hopitalizations: No Immunizations Up To Date Tetanus Booster (TDap): Less than 5yrs PED Vaccines UTD: Yes Date of Influenza Vaccine: Aug 30, 2017 Seasonal Allergies Seasonal Allergies: No Past Medical History Surgeries: Yes (LAPAROTOMY; HYST ; LSO; ) Abdominal, Adenoidectomy, Appendectomy, Hysterectomy, Oophorectomy, Tonsillectomy Respiratory: Yes Asthma Cardiac: Yes (Hx. 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 Sexually Transmitted Disease: No HIV/AIDS: No Genitourinary: No Gastrointestinal: No Musculoskeletal: Yes (chronic back pain; MULITPLE VARIOUS PAIN COMPLAINTS) Degenerate Disk Disease, Arthritis, Back Injury, Scoliosis, Chronic Back Pain Endocrine: No HEENT: Yes (DENTURES) Cancer: No Psychosocial: Yes (EXTENSIVE PSYCH HISTORY;BENZODIAZEPINE ABUSE) Anxiety, PTSD, Bipolar, Depression Integumentary: No Blood Disorders: No Adverse Reaction/Blood Tranf: No Family Medical History Reviewed Nursing Family Hx Family history: Hypertension (mother, MGM, and PGM) Heart disease (mother and father) History of - anemia (family Hx of blood transfusions) Infertile Kidney disease (MGM) No Pertinent Family Hx Physical Exam Vital Signs Vital Signs - First Documented 02/12/20 14:18 Temp 37.6 Pulse 110 Resp 18 B/P (MAP) 125/83 (97) Pulse Ox 99 O2 Delivery Room Air Capillary Refill : Less Than 3 Seconds Height, Weight, BMI Height: 5'6.00" Weight: 130lbs. 0.0oz. 58.241457lh; 24.00 BMI Method:Stated General Appearance: No Apparent Distress, WD/WN HEENT: PERRL/EOMI, Pharynx Normal Neck: Non Tender, Supple Respiratory: Lungs Clear, Normal Breath Sounds Cardiovascular: Regular Rate, Rhythm, No Murmur Gastrointestinal: Non Tender, Soft Back: Normal Inspection, No CVA Tenderness, No Vertebral Tenderness Extremity: Normal Range of Motion, Non Tender Neurologic/Psychiatric: Alert, Oriented x3 Skin: Normal Color, Warm/Dry Progress/Results/Core Measures Suspected Sepsis Recent Fever Within 48 Hours: Yes Infection Criteria Present: Documented Infection New/Unexplained Altered Menta: No Sepsis Screen: Possible Severe Sepsis Risk SIRS Temperature: Pulse: 110 Respiratory Rate: 18 Laboratory Tests 02/12/20 14:56: White Blood Count 8.2 Blood Pressure 125 /83 Mean: 97 Laboratory Tests 02/12/20 14:56: Creatinine 0.79, Platelet Count 267, Total Bilirubin 0.3 Results/Orders Lab Results Laboratory Tests Test 02/12/20 14:56 02/12/20 14:59 Range/Units White Blood Count 8.2 4.3-11.0 10^3/uL Red Blood Count 5.25 4.35-5.85 10^6/uL Hemoglobin 15.3 11.5-16.0 G/DL Hematocrit 46 35-52 % Mean Corpuscular Volume 87 80-99 FL Mean Corpuscular Hemoglobin 29 25-34 PG Mean Corpuscular Hemoglobin Concent 33 32-36 G/DL Red Cell Distribution Width 13.3 10.0-14.5 % Platelet Count 267 130-400 10^3/uL Mean Platelet Volume 10.4 7.4-10.4 FL Neutrophils (%) (Auto) 64 42-75 % Lymphocytes (%) (Auto) 26 12-44 % Monocytes (%) (Auto) 10 0-12 % Eosinophils (%) (Auto) 1 0-10 % Basophils (%) (Auto) 0 0-10 % Neutrophils # (Auto) 5.2 1.8-7.8 X 10^3 Lymphocytes # (Auto) 2.1 1.0-4.0 X 10^3 Monocytes # (Auto) 0.8 0.0-1.0 X 10^3 Eosinophils # (Auto) 0.1 0.0-0.3 10^3/uL Basophils # (Auto) 0.0 0.0-0.1 10^3/uL Sodium Level 139 135-145 MMOL/L Potassium Level 3.6 3.6-5.0 MMOL/L Chloride Level 102 98-107 MMOL/L Carbon Dioxide Level 23 21-32 MMOL/L Anion Gap 14 5-14 MMOL/L Blood Urea Nitrogen 14 7-18 MG/DL Creatinine 0.79 0.60-1.30 MG/DL Estimat Glomerular Filtration Rate > 60 BUN/Creatinine Ratio 18 Glucose Level 97 70-105 MG/DL Calcium Level 9.6 8.5-10.1 MG/DL Corrected Calcium 8.5-10.1 MG/DL Magnesium Level 2.1 1.6-2.4 MG/DL Total Bilirubin 0.3 0.1-1.0 MG/DL Aspartate Amino Transf (AST/SGOT) 15 5-34 U/L Alanine Aminotransferase (ALT/SGPT) 15 0-55 U/L Alkaline Phosphatase 55 40-136 U/L C-Reactive Protein High Sensitivity 0.10 0.00-0.50 MG/DL Total Protein 8.5 H 6.4-8.2 GM/DL Albumin 5.0 H 3.2-4.5 GM/DL Urine Color YELLOW Urine Clarity CLEAR Urine pH 6.0 5-9 Urine Specific Mcleod >=1.030 1.016-1.022 Urine Protein TRACE H NEGATIVE Urine Glucose (UA) NEGATIVE NEGATIVE Urine Ketones TRACE H NEGATIVE Urine Nitrite NEGATIVE NEGATIVE Urine Bilirubin 1+ H NEGATIVE Urine Urobilinogen 0.2 < = 1.0 MG/DL Urine Leukocyte Esterase NEGATIVE NEGATIVE Urine RBC (Auto) TRACE-I NEGATIVE Urine RBC 2-5 H /HPF Urine WBC RARE /HPF Urine Squamous Epithelial Cells 2-5 /HPF Urine Crystals NONE /LPF Urine Bacteria FEW H /HPF Urine Casts NONE /LPF Urine Mucus MODERATE H /LPF Urine Yeast MODERATE H /HPF Urine Culture Indicated YES My Orders Orders - REZA CORONADO MD Cbc With Automated Diff (02/12/20 14:45) Comprehensive Metabolic Panel (02/12/20 14:45) Hs C Reactive Protein (02/12/20 14:45) Magnesium (02/12/20 14:45) Ua Culture If Indicated (02/12/20 14:45) Ed Iv/Invasive Line Start (02/12/20 14:45) Lactated Ringers (Lr 1000 Ml Iv Solution (02/12/20 14:45) Urine Culture (02/12/20 14:59) Fluconazole Tablet (Ed Only) (Diflucan T (02/12/20 15:41) Alprazolam Tablet (Xanax Tablet) (02/12/20 16:45) Medications Given in ED Current Medications Medications Dose Ordered Sig/Antonia Route Start Time Stop Time Status Last Admin Dose Admin Lactated Ringer's 1,000 ml @ 0 mls/hr Q0M ONCE IV 02/12/20 14:45 02/12/20 14:47 DC 02/12/20 15:03 0 MLS/HR Vital Signs/I&O 02/12/20 14:18 Temp 37.6 Pulse 110 Resp 18 B/P (MAP) 125/83 (97) Pulse Ox 99 O2 Delivery Room Air Capillary Refill : Less Than 3 Seconds Blood Pressure Mean: 97 Progress Note : Progress Note Seen and evaluated. IV, labs, Hemoccult stool and UA ordered. LR 1 L bolus. Monitor patient. 1537: Labs reassuring. UA shows trace ketones and I suspect a bit dehydrated. Does have a yeast infection noted on urine. Diflucan 150 mg by mouth given now. Overall no significant findings otherwise and Hemoccult was negative. We will finish fluids and then discharged home. I did discuss with the patient about [id number] probiotic and bowel maintenance while taking antibiotics. She will call and make appointment with Dr. Montejo for recheck later this week and I will send a copy of the chart to him. Discharged home with return precautions. Patient verbalize understanding instructions and agreement with plan. 1638: Patient was feeling a little anxious at discharge and admitted that somebody had stolen her Xanax and so she is given prescription for Ativan until Xanax can be refilled. She states that she is feeling very anxious and thinks it that's more of the problem as the Ativan was not really working. I will give her 1 dose of Xanax 1 mg now and then she will follow-up with her doctor. Continue discharge. Patient was in agreement and appreciative of the new plan. Departure Impression Primary Impression: Dehydration Additional Impression: Yeast infection Disposition: HOME, SELF-CARE Condition: Improved Departure-Patient Inst. Decision time for Depature: 15:43 Referrals: NEWTON MONTEJO MD (PCP/Family) Primary Care Physician Patient Instructions: Yeast Infection (DC), Dehydration, Adult (DC) Add. Discharge Instructions: All discharge instructions reviewed with patient and/or family. Voiced understanding. Drink plenty of fluids. Eat a light diet. You may add probiotics daily per package directions or add something like culturelle yogurt or similar to help with the stomach upset associated with antibiotics. The yeast infection was treated in the emergency department. If this continues next week (7 days), then you may use [id number] Monistat as needed per package directions. Follow up with your doctor later this week for recheck and further evaluation. Return for worse pain, fever, vomiting, weakness, breathing problems or other concerns as needed. Copy Copies To 1: NEWTON MONTEJO MD, TIMOTHY D MD Feb 12, 2020 15:03
[2020-02-12 15:07] LABS: BASOPHILS % (AUTO) 0 % (0-10); EOSINOPHILS # (AUTO) 0.1 10^3/uL (0.0-0.3); EOSINOPHILS % (AUTO) 1 % (0-10); HEMATOCRIT 46 % (35-52); HEMOGLOBIN 15.3 G/DL (11.5-16.0); LYMPHOCYTES # (AUTO) 2.1 X 10^3 (1.0-4.0); LYMPHOCYTES % (AUTO) 26 % (12-44); MEAN CORPUSCULAR HEMOGLOBIN 29 PG (25-34); MEAN CORPUSCULAR HGB CONC 33 G/DL (32-36); MEAN CORPUSCULAR VOLUME 87 FL (80-99); MEAN PLATELET VOLUME 10.4 FL (7.4-10.4); MONOCYTES # (AUTO) 0.8 X 10^3 (0.0-1.0); MONOCYTES % (AUTO) 10 % (0-12); NEUTROPHILS # (AUTO) 5.2 X 10^3 (1.8-7.8); NEUTROPHILS % (AUTO) 64 % (42-75); PLATELET COUNT 267 10^3/uL (130-400); RED CELL DISTRIBUTION WIDTH 13.3 % (10.0-14.5); WHITE BLOOD COUNT 8.2 10^3/uL (4.3-11.0)
[2020-02-12 15:08] LABS: BILIRUBIN,URINE 1+ (NEGATIVE); CLARITY,URINE CLEAR; COLOR,URINE YELLOW; GLUCOSE, URINE (UA) NEGATIVE (NEGATIVE); KETONES,URINE TRACE (NEGATIVE); LEUKOCYTE ESTERASE ,URINE NEGATIVE (NEGATIVE); NITRITE,URINE NEGATIVE (NEGATIVE); PROTEIN,URINE TRACE (NEGATIVE)
[2020-02-12 15:27] LABS: ALANINE AMINOTRANSFERASE 15 U/L (0-55); ALKALINE PHOSPHATASE 55 U/L (40-136); BILIRUBIN,TOTAL 0.3 MG/DL (0.1-1.0); BUN/CREATININE RATIO 18; CALCIUM 9.6 MG/DL (8.5-10.1); CARBON DIOXIDE 23 MMOL/L (21-32); CHLORIDE 102 MMOL/L (98-107); CREATININE SERUM 0.79 MG/DL (0.60-1.30); GFR ESTIMATED > 60; GLUCOSE 97 MG/DL (70-105); MAGNESIUM 2.1 MG/DL (1.6-2.4); POTASSIUM 3.6 MMOL/L (3.6-5.0); SODIUM 139 MMOL/L (135-145); TOTAL PROTEIN 8.5 GM/DL (6.4-8.2)
[2020-02-12 15:31] LABS: BACTERIA,URINE FEW /HPF; WBC,URINE RARE /HPF; YEAST,URINE MODERATE /HPF
[2020-02-12] MEDS ORDERED: FLUCONAZOLE 150 MG TABLET (ED ONLY) PO STA (15:41)
[2020-02-12] MEDS ORDERED: ALPRAZolam 1 MG (XANAX) TAB PO ONE (16:45)
== END 2020-02-12 16:57 | disposition home or self-care (01) ==
LOC: EDUNIT# 14:17 → ER 14:19
DX: E86.0 Dehydration (principal); B37.49 Other urogenital candidiasis; G40.909 Epilepsy, unspecified, not intractable, without status epilepticus; J45.909 Unspecified asthma, uncomplicated; M54.9 Dorsalgia, unspecified; M41.9 Scoliosis, unspecified; F41.9 Anxiety disorder, unspecified; F43.10 Post-traumatic stress disorder, unspecified; F31.9 Bipolar disorder, unspecified; F17.210 Nicotine dependence, cigarettes, uncomplicated; Z79.899 Other long term (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; Z88.0 Allergy status to penicillin
CPT/HCPCS: 36415; 80053; 81000; 82274; 83735; 85025; 86141; 87088

== ENCOUNTER 2020-02-18 14:38 | Emergency (ER) | payer OTHER ==
[~2020-02-18] VITALS: Ht 167 cm; Wt 68.0 kg
--- NOTE | 2020-02-18 14:54 | ED Neck-Back Pain/Injury ---
General Chief Complaint: Head/Cervical Problems Stated Complaint: NECK STIFFNESS Source of Information: Patient Exam Limitations: No Limitations History of Present Illness Date Seen by Provider: Feb 18, 2020 Time Seen by Provider: 14:52 Initial Comments To ER with bilateral lateral neck pain that she awakened with yesterday morning. No fever no chills. She does report an associated headache. No nausea no vomiting. It hurts worse to return to either direction or flex her neck, she is tender to palpation bilateral neck. No known preceding injury. Location: C-Spine, Paraspinous Muscles Timing/Duration: 1-2 Days Severity: Moderate Pain/Injury Location: None Associated Symptoms: denies symptoms Allergies and Home Medications Allergies Coded Allergies: Penicillins (Unverified Allergy, Mild, PT ABLE TO TAKE ANCEF, 03/26/14) diclofenac (Unverified Allergy, Unknown, 01/21/15) divalproex sodium (Verified Allergy, Unknown, 08/26/15) Home Medications Brexpiprazole 2 Mg Tablet, 2 MG PO DAILY, (Reported) Fluoxetine HCl 20 Mg Capsule, 20 MG PO DAILY, (Reported) Lorazepam 1 Mg Tablet, 1 MG SL TID PRN for ANXIETY, (Reported) Patient Home Medication List Home Medication List Reviewed: Yes Review of Systems Constitutional: see HPI; No chills, No fever EENTM: see HPI Respiratory: no symptoms reported Cardiovascular: no symptoms reported Genitourinary: no symptoms reported Musculoskeletal: see HPI Skin: no symptoms reported Psychiatric/Neurological: No Symptoms Reported Past Eoojyqw-Ylksic-Tsfyaq Hx Patient Social History Alcohol Use: Denies Use Recreational Drug Use: No Drug of Choice: BENZODIAZEPINE ABUSE Smoking Status: Current Everyday Smoker Type Used: Cigarettes 2nd Hand Smoke Exposure: Yes Recent Foreign Travel: No Contact w/Someone Who Travel: No Recent Hopitalizations: No Physical Abuse: No Sexual Abuse: No Immunizations Up To Date Tetanus Booster (TDap): Less than 5yrs PED Vaccines UTD: Yes Date of Influenza Vaccine: Aug 30, 2017 Seasonal Allergies Seasonal Allergies: No Past Medical History Surgeries: Yes (LAPAROTOMY; HYST ; LSO; ) Abdominal, Adenoidectomy, Appendectomy, Hysterectomy, Oophorectomy, Tonsillectomy Respiratory: Yes Asthma Cardiac: Yes (Hx. 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 Sexually Transmitted Disease: No HIV/AIDS: No Genitourinary: No Gastrointestinal: No Musculoskeletal: Yes (chronic back pain; MULITPLE VARIOUS PAIN COMPLAINTS) Degenerate Disk Disease, Arthritis, Back Injury, Scoliosis, Chronic Back Pain Endocrine: No HEENT: Yes (DENTURES) Cancer: No Psychosocial: Yes (EXTENSIVE PSYCH HISTORY;BENZODIAZEPINE ABUSE) Anxiety, PTSD, Bipolar, Depression Integumentary: No Blood Disorders: No Adverse Reaction/Blood Tranf: No Family Medical History Family history: Hypertension (mother, MGM, and PGM) Heart disease (mother and father) History of - anemia (family Hx of blood transfusions) Infertile Kidney disease (MGM) No Pertinent Family Hx Physical Exam Vital Signs Vital Signs - First Documented 02/18/20 14:49 Temp 36.6 Pulse 112 Resp 20 B/P (MAP) 125/81 (96) Pulse Ox 98 Capillary Refill : Height, Weight, BMI Height: 5'6.00" Weight: 130lbs. 0.0oz. 58.416268qd; 24.00 BMI Method:Stated General Appearance: No Apparent Distress, WD/WN, Other (flat affect, rather sedate) HEENT: PERRL/EOMI, TMs Normal Neck: Full Range of Motion, Normal Inspection Respiratory: No Accessory Muscle Use, No Respiratory Distress Back: No Vertebral Tenderness, Other (cervical paraspinous muscle tenderness) Extremity: Normal Capillary Refill, Normal Inspection Neurologic/Psychiatric: Oriented x3, No Motor/Sensory Deficits Skin: Normal Color, Warm/Dry Progress/Results/Core Measures Results/Orders Lab Results Laboratory Tests Test 02/18/20 15:05 Range/Units White Blood Count 7.9 4.3-11.0 10^3/uL Red Blood Count 5.02 4.35-5.85 10^6/uL Hemoglobin 14.8 11.5-16.0 G/DL Hematocrit 44 35-52 % Mean Corpuscular Volume 87 80-99 FL Mean Corpuscular Hemoglobin 30 25-34 PG Mean Corpuscular Hemoglobin Concent 34 32-36 G/DL Red Cell Distribution Width 13.5 10.0-14.5 % Platelet Count 238 130-400 10^3/uL Mean Platelet Volume 10.7 H 7.4-10.4 FL Neutrophils (%) (Auto) 64 42-75 % Lymphocytes (%) (Auto) 26 12-44 % Monocytes (%) (Auto) 9 0-12 % Eosinophils (%) (Auto) 1 0-10 % Basophils (%) (Auto) 0 0-10 % Neutrophils # (Auto) 5.1 1.8-7.8 X 10^3 Lymphocytes # (Auto) 2.0 1.0-4.0 X 10^3 Monocytes # (Auto) 0.7 0.0-1.0 X 10^3 Eosinophils # (Auto) 0.1 0.0-0.3 10^3/uL Basophils # (Auto) 0.0 0.0-0.1 10^3/uL C-Reactive Protein High Sensitivity 0.03 0.00-0.50 MG/DL Serum Test, Qualitative NEGATIVE NEGATIVE My Orders Orders - ISMAEL SOL APRN Cbc With Automated Diff (02/18/20 14:50) Hs C Reactive Protein (02/18/20 14:50) Hcg,Qualitative Serum (02/18/20 14:50) Ct Head Wo (02/18/20 14:50) Ketorolac Injection (Toradol Injection) (02/18/20 15:00) Orphenadrine Injection (Norflex Injectio (02/18/20 15:00) Ua Culture If Indicated (02/18/20 14:57) Drug Screen Stat (Urine) (02/18/20 14:57) Ondansetron Oral Dissolve Tab (Zofran (02/18/20 15:00) Vital Signs/I&O 02/18/20 14:49 Temp 36.6 Pulse 112 Resp 20 B/P (MAP) 125/81 (96) Pulse Ox 98 Departure Impression Primary Impression: Tension type headache Qualified Codes: G44.209 - Tension-type headache, unspecified, not intractable Disposition: 01 HOME, SELF-CARE Condition: Stable Departure-Patient Inst. Decision time for Depature: 15:42 Referrals: NEWTON MONTEJO MD (PCP/Family) Primary Care Physician Patient Instructions: Headache, Adult Add. Discharge Instructions: All discharge instructions reviewed with patient and/or family. Voiced understanding. Scripts Naproxen (Naprosyn) 500 Mg Tablet 500 MG PO BID PRN for PAIN-MODERATE (5-7), #30 TAB 0 Refills Prov: ISMAEL SOL APRN 02/18/20 Methocarbamol (Robaxin-750) 750 Mg Tablet 750 MG PO Q4H PRN for PAIN-MILD (1-4), #20 TAB Prov: ISMAEL SOL APRN 02/18/20 ISMAEL SOL APRN Feb 18, 2020 14:54
[2020-02-18] MEDS ORDERED: LORA-405 SL (14:56)
[2020-02-18] MEDS ORDERED: FLUO20CA42 PO (14:56)
[2020-02-18] MEDS ORDERED: BREX2TAB PO (14:56)
[2020-02-18] MEDS ORDERED: KETOROLAC 60 MG/2 ML VIAL IM ONE (15:00)
[2020-02-18] MEDS ORDERED: ONDANSETRON 4 MG (ZOFRAN) ORAL DISSOLVE TAB PO ONE (15:00)
[2020-02-18] MEDS ORDERED: ORPHENADRINE 60 MG/2 ML (NORFLEX) AMP IM ONE (15:00)
[2020-02-18 15:28] LABS: BASOPHILS % (AUTO) 0 % (0-10); EOSINOPHILS # (AUTO) 0.1 10^3/uL (0.0-0.3); EOSINOPHILS % (AUTO) 1 % (0-10); HEMATOCRIT 44 % (35-52); HEMOGLOBIN 14.8 G/DL (11.5-16.0); LYMPHOCYTES % (AUTO) 26 % (12-44); MEAN CORPUSCULAR HEMOGLOBIN 30 PG (25-34); MEAN CORPUSCULAR HGB CONC 34 G/DL (32-36); MEAN CORPUSCULAR VOLUME 87 FL (80-99); MEAN PLATELET VOLUME 10.7 FL (7.4-10.4); MONOCYTES # (AUTO) 0.7 X 10^3 (0.0-1.0); MONOCYTES % (AUTO) 9 % (0-12); NEUTROPHILS # (AUTO) 5.1 X 10^3 (1.8-7.8); NEUTROPHILS % (AUTO) 64 % (42-75); PLATELET COUNT 238 10^3/uL (130-400); RED CELL DISTRIBUTION WIDTH 13.5 % (10.0-14.5); WHITE BLOOD COUNT 7.9 10^3/uL (4.3-11.0)
--- NOTE | 2020-02-18 15:37 | Diagnostic Imaging Report ---
INDICATION: Headache. Dizziness. Blurred vision. TECHNIQUE: Routine non contrast-enhanced axial images were obtained from the skull base to the vertex. Auto Exposure Controls were utilized during the CT exam to meet ALARA standards for radiation dose reduction COMPARISON: 11/16/2019. FINDINGS: The ventricles and cortical sulci are normal in size and contour. There is no midline shift or mass-effect. No acute intra-axial hemorrhage is seen. There are no abnormal areas of increased or decreased density to suggest acute hemorrhage or edema. No extra-axial masses or collections are present. The bony calvarium is intact. The visualized paranasal sinuses are unremarkable. The mastoid air cells are clear. IMPRESSION: 1. No acute intracranial abnormality. No CT evidence of mass, acute infarct or intracranial hemorrhage. Dictated by: Dictated on workstation # [id number]
[2020-02-18] MEDS ORDERED: METH-313 PO (15:43)
[2020-02-18] MEDS ORDERED: NAPR-1071 PO (15:43)
[2020-02-18 16:09] LABS: BILIRUBIN,URINE NEGATIVE (NEGATIVE); CLARITY,URINE CLEAR; COLOR,URINE YELLOW; GLUCOSE, URINE (UA) NEGATIVE (NEGATIVE); KETONES,URINE NEGATIVE (NEGATIVE); LEUKOCYTE ESTERASE ,URINE NEGATIVE (NEGATIVE); NITRITE,URINE NEGATIVE (NEGATIVE); PH,URINE 7.5 (5-9); PROTEIN,URINE NEGATIVE (NEGATIVE)
[2020-02-18 16:25] LABS: AMORPHOUS SEDIMENT,UR MOD AMOR PHOSPHATE /LPF; BACTERIA,URINE TRACE /HPF; RBC,URINE RARE /HPF; WBC,URINE 0-2 /HPF
[2020-02-18 16:32] VITALS: BP 125/81
[2020-02-18 16:36] LABS: AMPHETAMINE SCREEN, URINE NEGATIVE (NEGATIVE); BARBITURATE SCREEN URINE NEGATIVE (NEGATIVE); BENZODIAZEPINES SCREEN URINE POSITIVE (NEGATIVE); CANNABINOID SCREEN, URINE NEGATIVE (NEGATIVE); COCAINE SCREEN URINE NEGATIVE (NEGATIVE); METHADONE STAT NEGATIVE (NEGATIVE); METHAMPHETAMINE SCREEN URINE S NEGATIVE (NEGATIVE); OPIATE SCREEN URINE NEGATIVE (NEGATIVE); OXYCODONE STAT NEGATIVE (NEGATIVE); PROPOXYPHENE STAT NEGATIVE (NEGATIVE); TRICYCLIC ANTIDEPRESSANTS SCRE NEGATIVE (NEGATIVE)
== END 2020-02-18 16:30 | disposition home or self-care (01) ==
LOC: EDUNIT# 14:38 → ER 14:41
DX: G44.209 Tension-type headache, unspecified, not intractable (principal); F41.9 Anxiety disorder, unspecified; F32.9 Major depressive disorder, single episode, unspecified; F17.210 Nicotine dependence, cigarettes, uncomplicated; Z88.0 Allergy status to penicillin; Z88.8 Allergy status to other drugs, medicaments and biological substances
CPT/HCPCS: 36415; 70450; 80306; 81000; 84703; 85025; 86141; 96372

== ENCOUNTER 2020-03-17 00:26 | Emergency (ER) | payer OTHER ==
[~2020-03-17] VITALS: Ht 167 cm; Wt 68.0 kg
[~2020-03-17 00:26] MED LIST changes: +BREX2TAB PO; +FLUO20CA42 PO; +LORA-405 SL; +NAPR-1071 PO
[2020-03-17 00:53] VITALS: BP 128/83
--- NOTE | 2020-03-17 01:03 | ED EENT ---
History of Present Illness General Chief Complaint: Dental Problems/Pain Stated Complaint: LEFT SIDE DENTAL PAIN,NAUSEA,DIZZY Nursing Triage Note: NECK PAIN BACK PAIN DENTAL PAIN NAUSEA DIZZINESS STARTED 1800 ON 03/16/20 Source: patient History of Present Illness Date Seen by Provider: March 17, 2020 Time Seen by Provider: 00:54 Initial Comments PT ARRIVES VIA POV FROM HOME C/O DENTAL PAIN--LEFT LOWER MOLAR AREA C/O LEFT EAR PAIN C/O NAUSEA C/O DIZZINESS NO SWELLING TO FACE NO FEVER/SWEATS/CHILLS SYMPTOMS BEGAN SOMETIME TONIGHT--HAS NO IDEA WHEN PAIN BEGAN TOOK TYLENOL 1000 MG AND IBUPROFEN 800 MG--SOME TIME TONIGHT--HAS NO IDEA WHEN SHE TOOK THEM PT WITH A MULTITUDE OF VISITS HERE--MANY FOR VARIOUS PAIN COMPLAINTS, INCLUDING FOR CHRONIC DENTAL PAIN COMPLAINTS. HAS NOT MADE ANY ATTEMPT TO SEE A DENTIST AT ANY TIME PT WITH KNOWN HISTORY OF BENZODIAZEPINE ABUSE PCP: DR. MONTEJO Allergies and Home Medications Allergies Coded Allergies: Penicillins (Unverified Allergy, Mild, PT ABLE TO TAKE ANCEF, 03/17/20) diclofenac (Unverified Allergy, Unknown, 03/17/20) divalproex sodium (Verified Allergy, Unknown, 03/17/20) Home Medications Cefdinir 300 Mg Capsule, 300 MG PO BID Prescribed by: MIRANDA LOCO on 03/17/20105 Lidocaine HCl 15 Ml Solution, 1-2 ML MM [id number] Prescribed by: MIRANDA LOCO on 03/17/20105 Patient Home Medication List Home Medication List Reviewed: Yes Review of Systems Review of Systems Constitutional: no symptoms reported Eyes: No Symptoms Reported Ears: See HPI, Dizziness, Pain Nose: no symptoms reported Mouth: see HPI, pain; denies swelling Throat: no symptoms reported Respiratory: no symptoms reported Cardiovascular: no symptoms reported Gastrointestinal: see HPI; No abdominal pain, No diarrhea; nausea; No vomiting : No (S/P HYST 2015) Musculoskeletal: no symptoms reported Skin: no symptoms reported Neurological: No Symptoms Reported Hematologic/Lymphatic: No Symptoms Reported Immunological/Allergic: no symptoms reported Past Xnestqm-Kvjtbf-Udqddp Hx Past Med/Social Hx: Reviewed and Corrections made Patient Social History Alcohol Use: Denies Use Recreational Drug Use: Yes (BENZODIAZEPINE ABUSE) Drug of Choice: BENZODIAZEPINE ABUSE Smoking Status: Current Everyday Smoker (1/2- 1 PPD) Type Used: Cigarettes 2nd Hand Smoke Exposure: Yes Recent Foreign Travel: No Contact w/Someone Who Travel: No Recent Infectious Disease Expo: No Recent Hopitalizations: No Physical Abuse: No Sexual Abuse: No Mistreated: No Fear: No Immunizations Up To Date Tetanus Booster (TDap): Less than 5yrs PED Vaccines UTD: Yes Date of Influenza Vaccine: Aug 30, 2017 Seasonal Allergies Seasonal Allergies: No Past Medical History Surgeries: Yes (LAPAROTOMY; HYST ; LSO; ) Abdominal, Adenoidectomy, Appendectomy, Hysterectomy, Oophorectomy, Tonsillectomy Respiratory: Yes Asthma Cardiac: Yes (Hx. 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 Sexually Transmitted Disease: No HIV/AIDS: No Genitourinary: No Gastrointestinal: No Musculoskeletal: Yes (chronic back pain; MULITPLE VARIOUS PAIN COMPLAINTS) Degenerate Disk Disease, Arthritis, Back Injury, Scoliosis, Chronic Back Pain Endocrine: No HEENT: Yes (CHRONIC DENTAL PAIN/EXTENSIVE DENTAL DECAY) Cancer: No Psychosocial: Yes (EXTENSIVE PSYCH HISTORY;BENZODIAZEPINE ABUSE) Anxiety, PTSD, Bipolar, Depression Integumentary: No Blood Disorders: No Adverse Reaction/Blood Tranf: No Family Medical History Family history: Hypertension (mother, MGM, and PGM) Heart disease (mother and father) History of - anemia (family Hx of blood transfusions) Infertile Kidney disease (MGM) No Pertinent Family Hx Physical Exam Vital Signs Vital Signs - First Documented 03/17/20 00:53 Temp 37.1 Pulse 85 Resp 18 B/P (MAP) 128/83 (98) Pulse Ox 99 Height, Weight, BMI Height: 5'6.00" Weight: 130lbs. 0.0oz. 58.942704rs; 24.00 BMI Method:Stated General Appearance: WD/WN, no apparent distress Eyes: bilateral eye normal inspection, bilateral eye PERRL, bilateral eye EOMI Ears: bilateral ear auricle normal, bilateral ear canal normal, bilateral ear TM normal Nose: normal inspection Mouth/Throat: pharynx normal; No excessive drooling, No mandibular swelling, No maxillary swelling, No trismus; other (EXTENSIVE DENTAL DECAY OF ALL TEETH--ESPECIALLY AT GUM LINE. DIFFUSE GINGIVAL INFLAMMATION. NO PINPOINT DENTAL TENDERNESS. NO SWELLING OR EVIDENCE OF ABSCESS. 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, no motor/sensory deficits, alert, normal mood/affect, oriented x 3 Skin: normal color, warm/dry, tattoos/piercings (EXTENSIVE TATTOOOS) Progress/Results/Core Measures Results/Orders My Orders Orders - MIRANDA LOCO DO Cefdinir Capsule (Omnicef Capsule) (03/17/20 01:15) Lidocaine 2% Viscous 15 Ml (Xylocaine Vi (03/17/20 01:15) Vital Signs/I&O 03/17/20 00:53 Temp 37.1 Pulse 85 Resp 18 B/P (MAP) 128/83 (98) Pulse Ox 99 Blood Pressure Mean: 98 Departure Impression Primary Impression: Dental caries Additional Impression: Chronic dental pain Disposition: HOME, SELF-CARE Condition: Stable Departure-Patient Inst. Referrals: NEWTON MONTEJO MD (PCP/Family) Primary Care Physician Patient Instructions: CHRONIC PAIN, Gingivitis (DC), Tooth Decay, Adult (DC) Add. Discharge Instructions: BRUSH YOUR TEETH AT LEAST TWICE A DAY EVERY DAY TYLENOL 1 GRAM / MOTRIN 800 MG 4 TIMES A DAY FOR PAIN FOLLOW UP WITH A DENTIST THIS WEEK--CALL IN THE MORNING TO SCHEDULE AN APPOINTMENT All discharge instructions reviewed with patient and/or family. Voiced understanding. Scripts Lidocaine HCl (Lidocaine HCl Viscous) 15 Ml Solution 1-2 ML MM [id number], #120 ML Prov: MIRANDA LOCO DO 03/17/20 Cefdinir (Cefdinir) 300 Mg Capsule 300 MG PO BID, #20 CAP Prov: MIRANDA LOCO DO 03/17/20 MIRANDA LOCO DO March 17, 2020 01:03
[2020-03-17] MEDS ORDERED: LURA40TA3 PO (01:05)
[2020-03-17] MEDS ORDERED: DULO30CA3 PO (01:05)
[2020-03-17] MEDS ORDERED: CEFD300C3 PO (01:06)
[2020-03-17] MEDS ORDERED: LIDO20SO23 MM (01:06)
[2020-03-17] MEDS ORDERED: CEFDINIR 300 MG (OMNICEF) CAP PO ONE (01:15)
[2020-03-17] MEDS ORDERED: LIDOCAINE 2% VISCOUS 15 ML UDC MM ONE (01:15)
== END 2020-03-17 01:15 | disposition home or self-care (01) ==
LOC: EDUNIT# 00:26 → ER 00:29
DX: K02.9 Dental caries, unspecified (principal); F17.210 Nicotine dependence, cigarettes, uncomplicated; Z88.0 Allergy status to penicillin; Z88.8 Allergy status to other drugs, medicaments and biological substances
CPT/HCPCS: 99283

== ENCOUNTER 2020-04-16 16:45 | Emergency (ER) | payer OTHER ==
[~2020-04-16] VITALS: Ht 167 cm; Wt 68.0 kg
[~2020-04-16 16:45] MED LIST changes: +DULO30CA3 PO; +LURA40TA3 PO
[2020-04-16 16:59] LABS: BILIRUBIN,URINE NEGATIVE (NEGATIVE); CLARITY,URINE SL CLOUDY; COLOR,URINE DARK YELLOW; GLUCOSE, URINE (UA) NEGATIVE (NEGATIVE); KETONES,URINE NEGATIVE (NEGATIVE); LEUKOCYTE ESTERASE ,URINE NEGATIVE (NEGATIVE); NITRITE,URINE NEGATIVE (NEGATIVE); PH,URINE 5.5 (5-9); PROTEIN,URINE TRACE (NEGATIVE)
--- NOTE | 2020-04-16 17:05 | ED Hip Pain/Injury ---
General Chief Complaint: Hip/Pelvic Problems Stated Complaint: BILAT HIP PAIN / RIB PAIN / BOTH LEGS NUMB Source: patient Exam Limitations: no limitations History of Present Illness Date Seen by Provider: Apr 16, 2020 Time Seen by Provider: 17:02 Initial Comments To ER by private vehicle with reports of bilateral lateral hip pain, bilateral lateral rib pain and numbness in her legs bilaterally. No loss of bowel or bladder control no loss of sensation in her genitals. This began today while at work. 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 They did not actually fall but she had twisted in such a manner that caused her pain. She is already on Flexeril. Timing/Duration: constant Severity: moderate Method of Injury: twisted Allergies and Home Medications Allergies Coded Allergies: Penicillins (Unverified Allergy, Mild, PT ABLE TO TAKE ANCEF, 03/17/20) diclofenac (Unverified Allergy, Unknown, 03/17/20) divalproex sodium (Verified Allergy, Unknown, 03/17/20) Home Medications Cefdinir 300 Mg Capsule, 300 MG PO BID Prescribed by: MIRANDA LOCO on 03/17/20105 Lidocaine HCl 15 Ml Solution, 1-2 ML MM [id number] Prescribed by: MIRANDA LOCO on 03/17/20105 Patient Home Medication List Home Medication List Reviewed: Yes Review of Systems Constitutional: see HPI EENTM: see HPI Respiratory: no symptoms reported Cardiovascular: no symptoms reported Genitourinary: no symptoms reported Musculoskeletal: see HPI Skin: no symptoms reported Psychiatric/Neurological: No Symptoms Reported Past Eslrssn-Hhknrt-Ffohth Hx Patient Social History Drug of Choice: BENZODIAZEPINE ABUSE Type Used: Cigarettes 2nd Hand Smoke Exposure: Yes Recent Foreign Travel: No Contact w/Someone Who Travel: No Recent Hopitalizations: No Immunizations Up To Date Tetanus Booster (TDap): Less than 5yrs PED Vaccines UTD: Yes Date of Influenza Vaccine: Aug 30, 2017 Seasonal Allergies Seasonal Allergies: No Past Medical History Surgeries: Yes (LAPAROTOMY; HYST ; LSO; ) Abdominal, Adenoidectomy, Appendectomy, Hysterectomy, Oophorectomy, Tonsillectomy Respiratory: Yes Asthma Cardiac: Yes (Hx. 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 Sexually Transmitted Disease: No HIV/AIDS: No Genitourinary: No Gastrointestinal: No Musculoskeletal: Yes (chronic back pain; MULITPLE VARIOUS PAIN COMPLAINTS) Degenerate Disk Disease, Arthritis, Back Injury, Scoliosis, Chronic Back Pain Endocrine: No HEENT: Yes (CHRONIC DENTAL PAIN/EXTENSIVE DENTAL DECAY) Cancer: No Psychosocial: Yes (EXTENSIVE PSYCH HISTORY;BENZODIAZEPINE ABUSE) Anxiety, PTSD, Bipolar, Depression Integumentary: No Blood Disorders: No Adverse Reaction/Blood Tranf: No Family Medical History Family history: Hypertension (mother, MGM, and PGM) Heart disease (mother and father) History of - anemia (family Hx of blood transfusions) Infertile Kidney disease (MGM) No Pertinent Family Hx Physical Exam Vital Signs Capillary Refill : Height, Weight, BMI Height: 5'6.00" Weight: 130lbs. 0.0oz. 58.919143sb; 24.00 BMI Method:Stated General Appearance: No Apparent Distress, WD/WN, Other (ambulatory to room 7 without abnormal gait./ able to provide urine sample on request. ) Neck: Full Range of Motion, Normal Inspection Cardiovascular: Regular Rate, Rhythm Respiratory: No Accessory Muscle Use, No Respiratory Distress Gastrointestinal: Normal Bowel Sounds, Non Tender, Soft Neurologic/Psychiatric: Alert, Oriented x3 Skin: Normal Color, Warm/Dry Progress/Results/Core Measures Results/Orders Lab Results Laboratory Tests Test 04/16/20 16:53 Range/Units My Orders Orders - ISMAEL SOL APRN Ua Culture If Indicated (04/16/20 16:47) Hcg,Qualitative Urine (04/16/20 16:47) Drug Screen Stat (Urine) (04/16/20 16:47) Cbc With Automated Diff (04/16/20 16:47) Erythrocyte Sedimentation Rate (04/16/20 16:47) Basic Metabolic Panel (04/16/20 16:47) Chest 1 View, Ap/Pa Only (04/16/20 17:01) Pelvis (04/16/20 17:01) Ketorolac Injection (Toradol Injection) (04/16/20 17:15) Departure Impression Primary Impression: Muscle strain Disposition: 01 HOME, SELF-CARE Condition: Stable Departure-Patient Inst. Decision time for Depature: 17:04 Referrals: NEWTON MONTEJO MD (PCP/Family) Primary Care Physician Patient Instructions: Muscle Strain (DC) Add. Discharge Instructions: 1. Use tylenol and motrin for pain. return to er for any worsening. All discharge instructions reviewed with patient and/or family. Voiced understanding. Work/School Note: Work Release Form Date Seen in the Emergency Department: Apr 16, 2020 Return to Work: Apr 17, 2020 ISMAEL SOL APRN Apr 16, 2020 17:05
[2020-04-16 17:06] LABS: HCG,QUALITATIVE URINE NEGATIVE (NEGATIVE)
[2020-04-16 17:12] LABS: AMPHETAMINE SCREEN, URINE NEGATIVE (NEGATIVE); BARBITURATE SCREEN URINE NEGATIVE (NEGATIVE); BENZODIAZEPINES SCREEN URINE POSITIVE (NEGATIVE); CANNABINOID SCREEN, URINE NEGATIVE (NEGATIVE); COCAINE SCREEN URINE NEGATIVE (NEGATIVE); METHADONE STAT NEGATIVE (NEGATIVE); METHAMPHETAMINE SCREEN URINE S NEGATIVE (NEGATIVE); OPIATE SCREEN URINE NEGATIVE (NEGATIVE); OXYCODONE STAT NEGATIVE (NEGATIVE); PROPOXYPHENE STAT NEGATIVE (NEGATIVE); TRICYCLIC ANTIDEPRESSANTS SCRE NEGATIVE (NEGATIVE)
[2020-04-16] MEDS ORDERED: KETOROLAC 30 MG/ML VIAL IM ONE (17:15)
[2020-04-16 17:19] LABS: BACTERIA,URINE FEW /HPF; CALCIUM OXALATE CRYSTALS,UR FEW /LPF; RBC,URINE 0-2 /HPF; SQUAMOUS EPITHELIAL CELL,UR 0-2 /HPF; WBC,URINE 0-2 /HPF
[2020-04-16 17:20] LABS: AMORPHOUS SEDIMENT,UR FEW AMOR URATES /LPF
--- NOTE | 2020-04-16 17:20 | Diagnostic Imaging Report ---
EXAMINATION: Pelvis 1 or 2 views HISTORY: Pain. COMPARISON: 12/22/2008. FINDINGS: Alignment is normal. No fracture. Joint spaces are normal. IMPRESSION: 1. No fracture in the pelvis. Dictated by: Dictated on workstation # [id number]
--- NOTE | 2020-04-16 17:21 | Diagnostic Imaging Report ---
EXAMINATION: Chest 1 view HISTORY: Rib pain COMPARISON: None available. FINDINGS: The lungs are clear without edema or pneumonia. No pleural effusion or pneumothorax. Heart size is normal. IMPRESSION: 1. Clear lungs. Dictated by: Dictated on workstation # [id number]
[2020-04-16 17:35] VITALS: BP 123/82
== END 2020-04-16 17:31 | disposition home or self-care (01) ==
LOC: EDUNIT# 16:45 → ER 16:47
DX: S76.011A Strain of muscle, fascia and tendon of right hip, initial encounter (principal); S76.012A Strain of muscle, fascia and tendon of left hip, initial encounter; S29.011A Strain of muscle and tendon of front wall of thorax, initial encounter; Z88.0 Allergy status to penicillin; Z88.8 Allergy status to other drugs, medicaments and biological substances; Z77.22 Contact with and (suspected) exposure to environmental tobacco smoke (acute) (chronic); Z82.49 Family history of ischemic heart disease and other diseases of the circulatory system; X50.1XXA Overexertion from prolonged static or awkward postures, initial encounter; Y92.129 Unspecified place in nursing home as the place of occurrence of the external cause; Y99.0 Civilian activity done for income or pay
CPT/HCPCS: 71045; 72170; 80306; 81000; 84703; 87088

== ENCOUNTER 2020-04-19 21:29 | Emergency (ER) | payer OTHER ==
[~2020-04-19] VITALS: Ht 167 cm; Wt 95.0 kg
--- NOTE | 2020-04-19 22:09 | ED Cardiac General ---
History of Present Illness General Chief Complaint: General Problems/Pain Stated Complaint: HEART RACING/SOB/BP 150/90 Nursing Triage Note: Pt arrives with multiple complaints stating "theres something wrong with my heart and neurologically". Reports feeling like her heart is beating slow; currently resting HR 90-100, pt states that is "low for her". She also states that she has been experiencing CP and SOB which feels different than her chronic CP and SOB. Also reports numbness to her entire body and feeling confused. A/Ox4 at this time. Source: patient Exam Limitations: no limitations History of Present Illness Date Seen by Provider: Apr 19, 2020 Time Seen by Provider: 21:54 Initial Comments Patient resists ER by private conveyance with chief complaint that she got home from work and played with her kids for a while. She Was sitting on the couch was not doing anything strenuous when she started having racing heart rate, n arrowing vision mendoza, tingling her whole body over and feeling general malaise. She's not having any nausea vomiting fevers chills cough shortness of breath or chest pain. She has a history of anxiety disorder with panic attack bipolar and endometriosis. She's had a hysterectomy. She is also had her tonsils out. She smokes but denies use of recent alcohol and denies recreational drug use entirely. She takes Xanax 1 mg twice a day and the last dose was at 1800 prior to this attack which started about 1-2 hours before she arrived. She denies any pain. She says this is worse than her normal panic attacks and she is more concerned about her racing heart rate. No history of SVTs A. fib or other dysrhythmias. Patient was here 3 days ago seen for hip strain bilaterally. She is on Flexeril for this. Negative . This is her ninth visit in the past 6 months. All for minor, nonemergent concerns. Allergies and Home Medications Allergies Coded Allergies: Penicillins (Unverified Allergy, Mild, PT ABLE TO TAKE ANCEF, 03/17/20) diclofenac (Unverified Allergy, Unknown, 03/17/20) divalproex sodium (Verified Allergy, Unknown, 03/17/20) Home Medications Cefdinir 300 Mg Capsule, 300 MG PO BID Prescribed by: MIRANDA LOCO on 5/5/20 0106 Lidocaine HCl 15 Ml Solution, 1-2 ML MM [id number] Prescribed by: MIRANDA LOCO on 03/17/20 0106 Patient Home Medication List Home Medication List Reviewed: Yes Review of Systems Review of Systems Constitutional: No chills, No diaphoresis EENTM: No Blurred Vision, No Double Vision Respiratory: Denies Cough, Denies Shortness of Air Cardiovascular: Denies Chest Pain, Denies Edema, Denies Irregular Heart Rate; Palpitations Gastrointestinal: Abdominal Pain (right pelvis associates with her historical ovarian pain); Denies Constipated, Denies Diarrhea, Denies Nausea Genitourinary: Denies Burning, Denies Discharge Musculoskeletal: No back pain, No gout Skin: No pruritus, No rash Psychiatric/Neurological: Anxiety, Depressed; Denies Headache, Denies Numbness; Paresthesia (whole body) All Other Systems Reviewed Negative Unless Noted: Yes Past Ydyjhau-Kvapqg-Nvfsnu Hx Patient Social History Alcohol Use: Denies Use Recreational Drug Use: No Drug of Choice: BENZODIAZEPINE ABUSE Type Used: Cigarettes 2nd Hand Smoke Exposure: Yes Recent Foreign Travel: No Contact w/Someone Who Travel: No Recent Infectious Disease Expo: No Recent Hopitalizations: No Physical Abuse: No Sexual Abuse: No Mistreated: No Fear: No Immunizations Up To Date Tetanus Booster (TDap): Less than 5yrs PED Vaccines UTD: Yes Date of Influenza Vaccine: Aug 30, 2017 Seasonal Allergies Seasonal Allergies: No Past Medical History Surgeries: Yes (LAPAROTOMY; HYST ; LSO; ) Abdominal, Adenoidectomy, Appendectomy, Hysterectomy, Oophorectomy, Tonsillectomy Respiratory: Yes Asthma Cardiac: Yes (Hx. 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 Sexually Transmitted Disease: No HIV/AIDS: No Genitourinary: No Gastrointestinal: No Musculoskeletal: Yes (chronic back pain; MULITPLE VARIOUS PAIN COMPLAINTS) Degenerate Disk Disease, Arthritis, Back Injury, Scoliosis, Chronic Back Pain Endocrine: No HEENT: Yes (CHRONIC DENTAL PAIN/EXTENSIVE DENTAL DECAY) Cancer: No Psychosocial: Yes (EXTENSIVE PSYCH HISTORY;BENZODIAZEPINE ABUSE) Anxiety, PTSD, Bipolar, Depression Integumentary: No Blood Disorders: No Adverse Reaction/Blood Tranf: No Family Medical History Family history: Hypertension (mother, MGM, and PGM) Heart disease (mother and father) History of - anemia (family Hx of blood transfusions) Infertile Kidney disease (MGM) No Pertinent Family Hx Physical Exam Vital Signs Vital Signs - First Documented 04/19/20 21:48 Temp 36.9 Pulse 101 Resp 16 B/P (MAP) 127/85 (99) Pulse Ox 99 O2 Delivery Room Air Capillary Refill : Less Than 3 Seconds Height, Weight, BMI Height: 5'6.00" Weight: 130lbs. 0.0oz. 58.680260dc; 34.00 BMI Method:Stated General Appearance: No Apparent Distress, WD/WN HEENT: PERRL/EOMI, Pharynx Normal, Moist Mucous Membranes Neck: Full Range of Motion, Normal Inspection Respiratory: Chest Non Tender, Lungs Clear, Normal Breath Sounds, No Accessory Muscle Use, No Respiratory Distress Cardiovascular: Regular Rate, Rhythm, No Edema, Normal Peripheral Pulses Gastrointestinal: Normal Bowel Sounds, No Organomegaly, Non Tender, Soft Extremity: Normal Capillary Refill, Normal Inspection, Normal Range of Motion, No Pedal Edema Neurologic/Psychiatric: Alert, Oriented x3, No Motor/Sensory Deficits Skin: Normal Color, Warm/Dry Progress/Results/Core Measures Results/Orders Lab Results Laboratory Tests Test 04/19/20 21:55 04/19/20 22:06 04/19/20 22:11 Range/Units Urine Color YELLOW Urine Clarity CLEAR Urine pH 7.5 5-9 Urine Specific [place] 1.015 L 1.016-1.022 Urine Protein NEGATIVE NEGATIVE Urine Glucose (UA) NEGATIVE NEGATIVE Urine Ketones NEGATIVE NEGATIVE Urine Nitrite NEGATIVE NEGATIVE Urine Bilirubin NEGATIVE NEGATIVE Urine Urobilinogen 0.2 < = 1.0 MG/DL Urine Leukocyte Esterase NEGATIVE NEGATIVE Urine RBC (Auto) NEGATIVE NEGATIVE Urine RBC NONE /HPF Urine WBC RARE /HPF Urine Squamous Epithelial Cells RARE /HPF Urine Crystals NONE /LPF Urine Bacteria TRACE /HPF Urine Casts NONE /LPF Urine Mucus NEGATIVE /LPF Urine Culture Indicated NO Urine Opiates Screen NEGATIVE NEGATIVE Urine Oxycodone Screen NEGATIVE NEGATIVE Urine Methadone Screen NEGATIVE NEGATIVE Urine Propoxyphene Screen NEGATIVE NEGATIVE Urine Barbiturates Screen NEGATIVE NEGATIVE Ur Tricyclic Antidepressants Screen NEGATIVE NEGATIVE Urine Phencyclidine Screen NEGATIVE NEGATIVE Urine Amphetamines Screen NEGATIVE NEGATIVE Urine Methamphetamines Screen NEGATIVE NEGATIVE Urine Benzodiazepines Screen POSITIVE H NEGATIVE Urine Cocaine Screen NEGATIVE NEGATIVE Urine Cannabinoids Screen NEGATIVE NEGATIVE White Blood Count 9.3 4.3-11.0 10^3/uL Red Blood Count 4.51 4.35-5.85 10^6/uL Hemoglobin 13.2 11.5-16.0 G/DL Hematocrit 39 35-52 % Mean Corpuscular Volume 87 80-99 FL Mean Corpuscular Hemoglobin 29 25-34 PG Mean Corpuscular Hemoglobin Concent 34 32-36 G/DL Red Cell Distribution Width 12.9 10.0-14.5 % Platelet Count 218 130-400 10^3/uL Mean Platelet Volume 9.9 7.4-10.4 FL Neutrophils (%) (Auto) 54 42-75 % Lymphocytes (%) (Auto) 34 12-44 % Monocytes (%) (Auto) 11 0-12 % Eosinophils (%) (Auto) 1 0-10 % Basophils (%) (Auto) 0 0-10 % Neutrophils # (Auto) 5.0 1.8-7.8 X 10^3 Lymphocytes # (Auto) 3.1 1.0-4.0 X 10^3 Monocytes # (Auto) 1.0 0.0-1.0 X 10^3 Eosinophils # (Auto) 0.1 0.0-0.3 10^3/uL Basophils # (Auto) 0.0 0.0-0.1 10^3/uL Sodium Level 138 135-145 MMOL/L Potassium Level 3.6 3.6-5.0 MMOL/L Chloride Level 104 98-107 MMOL/L Carbon Dioxide Level 24 21-32 MMOL/L Anion Gap 10 5-14 MMOL/L Blood Urea Nitrogen 12 7-18 MG/DL Creatinine 0.80 0.60-1.30 MG/DL Estimat Glomerular Filtration Rate > 60 BUN/Creatinine Ratio 15 Glucose Level 74 70-105 MG/DL Calcium Level 9.2 8.5-10.1 MG/DL Corrected Calcium 9.0 8.5-10.1 MG/DL Total Bilirubin 0.2 0.1-1.0 MG/DL Aspartate Amino Transf (AST/SGOT) 18 5-34 U/L Alanine Aminotransferase (ALT/SGPT) 15 0-55 U/L Alkaline Phosphatase 60 40-136 U/L Troponin I < 0.028 <0.028 NG/ML C-Reactive Protein High Sensitivity 0.07 0.00-0.50 MG/DL Total Protein 7.2 6.4-8.2 GM/DL Albumin 4.3 3.2-4.5 GM/DL Blood Gas Puncture Site LEFT RADIAL Blood Gas Patient Temperature 36.9 Arterial Blood pH 7.42 7.37-7.43 Arterial Blood Partial Pressure CO2 41 35-45 MMHG Arterial Blood Partial Pressure O2 86 79-93 MMHG Arterial Blood HCO3 26 23-27 MMOL/L Arterial Blood Total CO2 27.3 21.0-31.0 MMOL/L Arterial Blood Oxygen Saturation 98 94-100 % Arterial Blood Base Excess 1.9 -2.5-2.5 MMOL/L Prakash Test POSITIVE Blood Gas Ventilator Setting NO Blood Gas Inspired Oxygen RA My Orders Orders - FIORELLA MUNROE Ua Culture If Indicated (04/19/20 21:55) Drug Screen Stat (Urine) (04/19/20 21:55) Continuous Ekg Monitoring (04/19/20 21:55) Ekg Tracing (04/19/20 21:55) Cbc With Automated Diff (04/19/20 21:55) Comprehensive Metabolic Panel (04/19/20 21:55) Troponin I (04/19/20 21:55) Hs C Reactive Protein (04/19/20 22:04) Arterial Blood Gas (04/19/20 22:04) Lorazepam Tablet (Ativan Tablet) (04/19/20 22:15) Medications Given in ED Current Medications Medications Dose Ordered Sig/Antonia Route Start Time Stop Time Status Last Admin Dose Admin Lorazepam 0.5 mg ONCE ONCE PO 04/19/20 22:15 04/19/20 22:16 DC 04/19/20 22:21 0.5 MG Vital Signs/I&O 04/19/20 21:48 Temp 36.9 Pulse 101 Resp 16 B/P (MAP) 127/85 (99) Pulse Ox 99 O2 Delivery Room Air Blood Pressure Mean: 99 Progress Progress Note #1: Time: 22:07 Progress Note Suspect she's had a panic attack. We'll give her half a milligram Ativan and an ABG as well as EKG, basic labs to rule out anemia, pericarditis, infection or UTI. Drug screen. Alternatively she may have had a reaction to the Flexeril and Xanax in combination. Progress Note #2: Time: 23:50 Progress Note Patient is asleep when I enter the room. She says her symptoms are much improved. She is ready to go home. We did discuss all her labs and recommend she follow up in the next 1-[address] Montejo which she agreed to do. Initial ECG Impression Date: Apr 19, 2020 Initial ECG Impression Time: 21:41 Initial ECG Rate: 99 Initial ECG Rhythm: Normal Sinus Initial ECG Intervals: Normal Initial ECG Impression: Normal Comment Normal sinus rhythm with no clinically relevant ST T-wave elevation or depression. Departure Impression Primary Impression: Malaise and fatigue Additional Impression: Panic disorder Disposition: 01 HOME, SELF-CARE Condition: Stable Departure-Patient Inst. Decision time for Depature: 23:52 Referrals: NEWTON MONTEJO MD (PCP/Family) Primary Care Physician Patient Instructions: Fatigue (DC), Panic Disorder Add. Discharge Instructions: Please make plans to follow-up with Dr. Montejo in the next 1-2 weeks to discuss other sources of your symptoms. Return to the nearest ER if you experience chest pain, shortness of air or other worrisome symptoms. All discharge instructions reviewed with patient and/or family. Voiced understanding. FIORELLA MUNREO Apr 19, 2020 22:09
[2020-04-19] MEDS ORDERED: LORazepam 0.5 MG (ATIVAN) TABLET PO ONE (22:15)
[2020-04-19 22:23] LABS: ABG BASE EXCESS 1.9 MMOL/L (-2.5-2.5); ABG OXYGEN SATURATION 98 % (94-100); ABG PCO2 41 MMHG (35-45); ABG PH 7.42 (7.37-7.43); ABG PO2 86 MMHG (79-93); ABG TCO2 27.3 MMOL/L (21.0-31.0)
[2020-04-19 22:26] LABS: BASOPHILS % (AUTO) 0 % (0-10); EOSINOPHILS # (AUTO) 0.1 10^3/uL (0.0-0.3); EOSINOPHILS % (AUTO) 1 % (0-10); HEMATOCRIT 39 % (35-52); HEMOGLOBIN 13.2 G/DL (11.5-16.0); LYMPHOCYTES # (AUTO) 3.1 X 10^3 (1.0-4.0); LYMPHOCYTES % (AUTO) 34 % (12-44); MEAN CORPUSCULAR HEMOGLOBIN 29 PG (25-34); MEAN CORPUSCULAR HGB CONC 34 G/DL (32-36); MEAN CORPUSCULAR VOLUME 87 FL (80-99); MEAN PLATELET VOLUME 9.9 FL (7.4-10.4); MONOCYTES % (AUTO) 11 % (0-12); NEUTROPHILS % (AUTO) 54 % (42-75); PLATELET COUNT 218 10^3/uL (130-400); RED CELL DISTRIBUTION WIDTH 12.9 % (10.0-14.5); WHITE BLOOD COUNT 9.3 10^3/uL (4.3-11.0)
[2020-04-19 22:30] LABS: BILIRUBIN,URINE NEGATIVE (NEGATIVE); CLARITY,URINE CLEAR; COLOR,URINE YELLOW; GLUCOSE, URINE (UA) NEGATIVE (NEGATIVE); KETONES,URINE NEGATIVE (NEGATIVE); LEUKOCYTE ESTERASE ,URINE NEGATIVE (NEGATIVE); NITRITE,URINE NEGATIVE (NEGATIVE); PH,URINE 7.5 (5-9); PROTEIN,URINE NEGATIVE (NEGATIVE)
[2020-04-19 22:34] LABS: ALLENS TEST POSITIVE; INSPIRED O2 RA; PATIENT TEMP 36.9; VENTILATOR NO
[2020-04-19 22:39] LABS: BACTERIA,URINE TRACE /HPF; SQUAMOUS EPITHELIAL CELL,UR RARE /HPF; WBC,URINE RARE /HPF
[2020-04-19 22:44] LABS: AMPHETAMINE SCREEN, URINE NEGATIVE (NEGATIVE); BARBITURATE SCREEN URINE NEGATIVE (NEGATIVE); BENZODIAZEPINES SCREEN URINE POSITIVE (NEGATIVE); CANNABINOID SCREEN, URINE NEGATIVE (NEGATIVE); COCAINE SCREEN URINE NEGATIVE (NEGATIVE); METHADONE STAT NEGATIVE (NEGATIVE); METHAMPHETAMINE SCREEN URINE S NEGATIVE (NEGATIVE); OPIATE SCREEN URINE NEGATIVE (NEGATIVE); OXYCODONE STAT NEGATIVE (NEGATIVE); PROPOXYPHENE STAT NEGATIVE (NEGATIVE); TRICYCLIC ANTIDEPRESSANTS SCRE NEGATIVE (NEGATIVE)
[2020-04-19 22:49] LABS: ALBUMIN 4.3 GM/DL (3.2-4.5); CHLORIDE 104 MMOL/L (98-107); POTASSIUM 3.6 MMOL/L (3.6-5.0); SODIUM 138 MMOL/L (135-145)
[2020-04-19 22:50] LABS: CALCIUM 9.2 MG/DL (8.5-10.1)
[2020-04-19 22:51] LABS: GLUCOSE 74 MG/DL (70-105); TOTAL PROTEIN 7.2 GM/DL (6.4-8.2)
[2020-04-19 22:52] LABS: CARBON DIOXIDE 24 MMOL/L (21-32)
[2020-04-19 22:53] LABS: BILIRUBIN,TOTAL 0.2 MG/DL (0.1-1.0)
[2020-04-19 22:55] LABS: ALKALINE PHOSPHATASE 60 U/L (40-136); GFR ESTIMATED > 60
[2020-04-19 22:56] LABS: BUN/CREATININE RATIO 15
[2020-04-19 22:58] LABS: ALANINE AMINOTRANSFERASE 15 U/L (0-55)
[2020-04-20 00:23] VITALS: BP 121/64
== END 2020-04-20 00:30 | disposition home or self-care (01) ==
LOC: EDUNIT# 21:29 → ER 21:30
DX: F41.0 Panic disorder [episodic paroxysmal anxiety] (principal); R53.81 Other malaise; R53.83 Other fatigue; F31.9 Bipolar disorder, unspecified; F43.10 Post-traumatic stress disorder, unspecified; Z77.22 Contact with and (suspected) exposure to environmental tobacco smoke (acute) (chronic); Z90.710 Acquired absence of both cervix and uterus; Z88.0 Allergy status to penicillin; Z88.5 Allergy status to narcotic agent; Z88.8 Allergy status to other drugs, medicaments and biological substances; Z82.49 Family history of ischemic heart disease and other diseases of the circulatory system
CPT/HCPCS: 36415; 80053; 80306; 81000; 82805; 84484; 85025; 86141; 93005

== ENCOUNTER 2020-05-08 20:42 | Emergency (ER) | payer OTHER ==
[~2020-05-08] VITALS: Ht 167 cm; Wt 68.0 kg
--- NOTE | 2020-05-08 20:52 | ED Chest Pain ---
General Stated Complaint: CP Source: patient Exam Limitations: no limitations History of Present Illness Date Seen by Provider: May 08, 2020 Time Seen by Provider: 20:50 Initial Comments 29-year-old female presents with chest pain. Patient reports his been going on and off for a while but then over the last 2 days his become more constant not going away. Patient reports his across to her mid chest and radiates into her right neck. Patient reports that she is still present on her chest and will get better. She has some mild shortness of breath. She has a mild cough but states it is a "smoker's cough" patient denies any fevers or chills. She has no nausea vomiting diarrhea. Patient was swabbed for COVID and it was negative. Allergies and Home Medications Allergies Coded Allergies: Penicillins (Unverified Allergy, Mild, PT ABLE TO TAKE ANCEF, 03/17/20) diclofenac (Unverified Allergy, Unknown, 03/17/20) divalproex sodium (Verified Allergy, Unknown, 03/17/20) Home Medications Budesonide/Formoterol Fumarate 10.2 Gm Hfa.aer.ad, 2 PUFF IH BID, (Reported) Cefdinir 300 Mg Capsule, 300 MG PO BID Prescribed by: MIRANDA LOCO on 03/17/20105 Lidocaine HCl 15 Ml Solution, 1-2 ML MM [id number] Prescribed by: MIRANDA LOCO on 03/17/20 010 Nebivolol HCl 5 Mg Tablet, 5 MG PO DAILY, (Reported) Patient Home Medication List Home Medication List Reviewed: Yes Review of Systems Review of Systems Constitutional: No chills, No fever EENTM: No Symptoms Reported Respiratory: Cough, Shortness of Air; Denies Wheezing Cardiovascular: Chest Pain; Denies Irregular Heart Rate Gastrointestinal: No Symptoms Reported Genitourinary: No Symptoms Reported Musculoskeletal: no symptoms reported Skin: no symptoms reported Psychiatric/Neurological: No Symptoms Reported Past Bnymvhv-Sibiem-Agrxdn Hx Past Med/Social Hx: Reviewed Nursing Past Med/Soc Hx Patient Social History Drug of Choice: BENZODIAZEPINE ABUSE Type Used: Cigarettes 2nd Hand Smoke Exposure: Yes Recent Foreign Travel: No Contact w/Someone Who Travel: No Recent Hopitalizations: No Immunizations Up To Date Tetanus Booster (TDap): Less than 5yrs PED Vaccines UTD: Yes Date of Influenza Vaccine: Aug 30, 2017 Seasonal Allergies Seasonal Allergies: No Past Medical History Surgeries: Yes (LAPAROTOMY; HYST ; LSO; ) Abdominal, Adenoidectomy, Appendectomy, Hysterectomy, Oophorectomy, Tonsillectomy Respiratory: Yes Asthma Cardiac: Yes (Hx. 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 Sexually Transmitted Disease: No HIV/AIDS: No Genitourinary: No Gastrointestinal: No Musculoskeletal: Yes (chronic back pain; MULITPLE VARIOUS PAIN COMPLAINTS) Degenerate Disk Disease, Arthritis, Back Injury, Scoliosis, Chronic Back Pain Endocrine: No HEENT: Yes (CHRONIC DENTAL PAIN/EXTENSIVE DENTAL DECAY) Cancer: No Psychosocial: Yes (EXTENSIVE PSYCH HISTORY;BENZODIAZEPINE ABUSE) Anxiety, PTSD, Bipolar, Depression Integumentary: No Blood Disorders: No Adverse Reaction/Blood Tranf: No Family Medical History Family history: Hypertension (mother, MGM, and PGM) Heart disease (mother and father) History of - anemia (family Hx of blood transfusions) Infertile Kidney disease (MGM) No Pertinent Family Hx Physical Exam Vital Signs Vital Signs - First Documented 05/08/20 20:44 Temp 37.2 Pulse 106 Resp 16 B/P (MAP) 146/90 (108) Pulse Ox 97 O2 Delivery Room Air Capillary Refill : Height, Weight, BMI Height: 5'6.00" Weight: 130lbs. 0.0oz. 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 Norm as Tested Skin: Normal Color, Warm/Dry Progress/Results/Core Measures Results/Orders Lab Results Laboratory Tests Test 05/08/20 20:53 Range/Units White Blood Count 9.3 4.3-11.0 10^3/uL Red Blood Count 4.55 4.35-5.85 10^6/uL Hemoglobin 13.5 11.5-16.0 G/DL Hematocrit 40 35-52 % Mean Corpuscular Volume 88 80-99 FL Mean Corpuscular Hemoglobin 30 25-34 PG Mean Corpuscular Hemoglobin Concent 34 32-36 G/DL Red Cell Distribution Width 12.9 10.0-14.5 % Platelet Count 218 130-400 10^3/uL Mean Platelet Volume 9.8 7.4-10.4 FL Neutrophils (%) (Auto) 57 42-75 % Lymphocytes (%) (Auto) 33 12-44 % Monocytes (%) (Auto) 10 0-12 % Eosinophils (%) (Auto) 1 0-10 % Basophils (%) (Auto) 0 0-10 % Neutrophils # (Auto) 5.3 1.8-7.8 X 10^3 Lymphocytes # (Auto) 3.0 1.0-4.0 X 10^3 Monocytes # (Auto) 0.9 0.0-1.0 X 10^3 Eosinophils # (Auto) 0.1 0.0-0.3 10^3/uL Basophils # (Auto) 0.0 0.0-0.1 10^3/uL Prothrombin Time 12.5 12.2-14.7 SEC INR Comment 0.9 0.8-1.4 Activated Partial Thromboplast Time 30 24-35 SEC D-Dimer 0.49 0.00-0.49 UG/ML Sodium Level 141 135-145 MMOL/L Potassium Level 3.7 3.6-5.0 MMOL/L Chloride Level 104 98-107 MMOL/L Carbon Dioxide Level 25 21-32 MMOL/L Anion Gap 12 5-14 MMOL/L Blood Urea Nitrogen 11 7-18 MG/DL Creatinine 0.76 0.60-1.30 MG/DL Estimat Glomerular Filtration Rate > 60 BUN/Creatinine Ratio 14 Glucose Level 91 70-105 MG/DL Calcium Level 9.8 8.5-10.1 MG/DL Corrected Calcium 9.4 8.5-10.1 MG/DL Magnesium Level 2.2 1.6-2.4 MG/DL Total Bilirubin 0.3 0.1-1.0 MG/DL Aspartate Amino Transf (AST/SGOT) 14 5-34 U/L Alanine Aminotransferase (ALT/SGPT) 11 0-55 U/L Alkaline Phosphatase 61 40-136 U/L Myoglobin 22.6 10.0-92.0 NG/ML Troponin I < 0.028 <0.028 NG/ML B-Type Natriuretic Peptide < 10.0 <100.0 PG/ML Total Protein 7.5 6.4-8.2 GM/DL Albumin 4.5 3.2-4.5 GM/DL Lipase 18 8-78 U/L My Orders Orders - BAEZA,KISHAN L DO Cbc With Automated Diff (05/08/20 20:52) Magnesium (05/08/20 20:52) Chest 1 View, Ap/Pa Only (05/08/20 20:52) Ekg Tracing (05/08/20 20:52) Comprehensive Metabolic Panel (05/08/20 20:52) Myoglobin Serum (05/08/20 20:52) Protime With Inr (05/08/20:52) Partial Thromboplastin Time (05/08/20 20:52) Monitor-Rhythm Ecg Trace Only (05/08/20 20:52) Lipid Panel (05/09/20 06:00) Ed Iv/Invasive Line Start (05/08/20 20:52) Lipase (05/08/20 20:52) BNP (05/08/20 20:52) Fibrin Degradation Products (05/08/20 20:52) Troponin I (05/08/20 20:52) Aspirin Chewable Tablet (Baby Aspirin Ch (05/08/20 21:00) Famotidine Injection (Pepcid Injection) (05/08/20 21:13) Medications Given in ED Current Medications Medications Dose Ordered Sig/Antonia Route Start Time Stop Time Status Last Admin Dose Admin Aspirin 324 mg ONCE ONCE PO 05/08/20 21:00 05/08/20 21:01 DC 05/08/20 20:56 324 MG Vital Signs/I&O 05/08/20 05/08/20 20:44 20:44 Temp 37.2 Pulse 106 Resp 16 B/P (MAP) 146/90 (108) Pulse Ox 97 O2 Delivery Room Air Room Air Progress Progress Note : Time: 21:40 Progress Note Patient with negative EKG for acute changes, negative troponin, negative d-dimer as well as negative physical exam. She has no acute findings on her CBC or CMP. Discussed with patient that I recommend she follow up with her primary care provider for further evaluation. That she may consider an EGD were this symptoms seem to be recurrent in nature and mid substernal chest. Patient is not showing any signs of discomfort upon arrival or at discharge. Patient is discharged home in stable condition Initial ECG Impression Date: May 08, 2020 Initial ECG Impression Time: 20:50 Initial ECG Rhythm: S.Tach Initial ECG Intervals: Normal Initial ECG Impression: Nonspecific Changes Diagnostic Imaging Diagonstic Imaging: Xray Plain Films/CT/US/NM/MRI: chest Comments [facility], [place] NAME: [facility] REC#: [id number] PT STATUS: REG ER : 1990 PHYSICIAN: KISHAN BAEZA DO ADMIT DATE: 05/08/20/ER Draft Date of Exam:05/08/20 CHEST 1 VIEW, AP/PA ONLY INDICATION: Chest pain. TECHNIQUE: Single view chest 9:02 PM. CORRELATION STUDY: 04/16/2020 FINDINGS: The heart size, mediastinal configuration and pulmonary vascularity are within normal limits. The lungs are clear with no consolidating infiltrate. There is no significant effusion or pneumothorax. IMPRESSION: 1. Stable, negative appearing portable chest. Departure Impression Primary Impression: Chest pain Qualified Codes: R07.9 - Chest pain, unspecified Disposition: 01 HOME, SELF-CARE Condition: Stable Departure-Patient Inst. Referrals: NEWTON MONTEJO MD (PCP/Family) Primary Care Physician Patient Instructions: Chest Pain That Is Not Caused by the Heart (DC), Acid Reflux (Gastroesophageal Reflux Disease), Adult (DC) Add. Discharge Instructions: Follow-up with your primary care provider for further evaluation and recheck in today symptoms Consider follow-up with a GI specialist or a general surgeon for an EGD to look at your stomach and esophagus. KISHAN BAEZA DO May 08, 2020 20:52
[2020-05-08] MEDS ORDERED: ASPIRIN 81 MG CHEW (CHILDREN'S ASA) PO ONE (21:00)
[2020-05-08 21:01] LABS: BASOPHILS % (AUTO) 0 % (0-10); EOSINOPHILS # (AUTO) 0.1 10^3/uL (0.0-0.3); EOSINOPHILS % (AUTO) 1 % (0-10); HEMATOCRIT 40 % (35-52); HEMOGLOBIN 13.5 G/DL (11.5-16.0); LYMPHOCYTES % (AUTO) 33 % (12-44); MEAN CORPUSCULAR HEMOGLOBIN 30 PG (25-34); MEAN CORPUSCULAR HGB CONC 34 G/DL (32-36); MEAN CORPUSCULAR VOLUME 88 FL (80-99); MEAN PLATELET VOLUME 9.8 FL (7.4-10.4); MONOCYTES # (AUTO) 0.9 X 10^3 (0.0-1.0); MONOCYTES % (AUTO) 10 % (0-12); NEUTROPHILS # (AUTO) 5.3 X 10^3 (1.8-7.8); NEUTROPHILS % (AUTO) 57 % (42-75); PLATELET COUNT 218 10^3/uL (130-400); RED CELL DISTRIBUTION WIDTH 12.9 % (10.0-14.5); WHITE BLOOD COUNT 9.3 10^3/uL (4.3-11.0)
[2020-05-08] MEDS ORDERED: NEBI5TAB8 PO (21:06)
--- NOTE | 2020-05-08 21:06 | Diagnostic Imaging Report ---
INDICATION: Chest pain. TECHNIQUE: Single view chest 9:02 PM. CORRELATION STUDY: 04/16/2020 FINDINGS: The heart size, mediastinal configuration and pulmonary vascularity are within normal limits. The lungs are clear with no consolidating infiltrate. There is no significant effusion or pneumothorax. IMPRESSION: 1. Stable, negative appearing portable chest. Dictated by: Dictated on workstation # [id number]
[2020-05-08] MEDS ORDERED: BUDE10.2 IH (21:07)
[2020-05-08 21:10] LABS: ALBUMIN 4.5 GM/DL (3.2-4.5); CHLORIDE 104 MMOL/L (98-107); POTASSIUM 3.7 MMOL/L (3.6-5.0); SODIUM 141 MMOL/L (135-145)
[2020-05-08 21:11] LABS: CALCIUM 9.8 MG/DL (8.5-10.1)
[2020-05-08 21:12] LABS: GLUCOSE 91 MG/DL (70-105); INR 0.9 (0.8-1.4); PROTHROMBIN TIME PATIENT 12.5 SEC (12.2-14.7); TOTAL PROTEIN 7.5 GM/DL (6.4-8.2)
[2020-05-08 21:13] LABS: CARBON DIOXIDE 25 MMOL/L (21-32)
[2020-05-08] MEDS ORDERED: FAMOTIDINE 20MG/2ML IV (PEPCID) IV STA (21:13)
[2020-05-08 21:14] LABS: BILIRUBIN,TOTAL 0.3 MG/DL (0.1-1.0)
[2020-05-08 21:16] LABS: ALKALINE PHOSPHATASE 61 U/L (40-136); CREATININE SERUM 0.76 MG/DL (0.60-1.30); GFR ESTIMATED > 60
[2020-05-08 21:17] LABS: BUN/CREATININE RATIO 14
[2020-05-08 21:19] LABS: ALANINE AMINOTRANSFERASE 11 U/L (0-55); MAGNESIUM 2.2 MG/DL (1.6-2.4)
[2020-05-08 21:20] LABS: LIPASE 18 U/L (8-78)
[2020-05-08 21:47] VITALS: BP 120/77
== END 2020-05-08 21:50 | disposition home or self-care (01) ==
LOC: EDUNIT# 20:42 → ER 20:45
DX: R07.89 Other chest pain (principal); J45.909 Unspecified asthma, uncomplicated; Z88.0 Allergy status to penicillin; Z88.8 Allergy status to other drugs, medicaments and biological substances; Z77.22 Contact with and (suspected) exposure to environmental tobacco smoke (acute) (chronic); Z82.49 Family history of ischemic heart disease and other diseases of the circulatory system
CPT/HCPCS: 36415; 71045; 80053; 83690; 83735; 83874; 83880; 84484; 85025; 85379; 85610; 85730; 93041

== ENCOUNTER 2020-06-06 19:02 | Emergency (ER) | payer OTHER ==
[~2020-06-06] VITALS: Ht 167.7 cm; Wt 70.2 kg
[~2020-06-06 19:02] MED LIST changes: +BUDE10.2 IH; +NEBI5TAB8 PO
--- NOTE | 2020-06-06 19:19 | ED General ---
General Stated Complaint: LEFT ABD,BACK PAIN Source of Information: Patient Exam Limitations: No Limitations History of Present Illness Date Seen by Provider: Jun 06, 2020 Time Seen by Provider: 19:17 Initial Comments To ER with right sided lateral abdominal pain that extends from the iliac crests to the ribs laterally. No fevers no chills no diarrhea no dysuria. Pain began one week ago without known cause. Timing/Duration: 1 Week Severity: Moderate Associated Systoms: No Headaches, No Nausea/Vomiting Allergies and Home Medications Allergies Coded Allergies: Penicillins (Unverified Allergy, Mild, PT ABLE TO TAKE ANCEF, 03/17/20) diclofenac (Unverified Allergy, Unknown, 03/17/20) divalproex sodium (Verified Allergy, Unknown, 03/17/20) Home Medications Budesonide/Formoterol Fumarate 10.2 Gm Hfa.aer.ad, 2 PUFF IH BID, (Reported) Cefdinir 300 Mg Capsule, 300 MG PO BID Prescribed by: MIRANDA LOCO on 03/17/20105 Lidocaine HCl 15 Ml Solution, 1-2 ML MM [id number] Prescribed by: MIRANDA LOCO on 03/17/20105 Nebivolol HCl 5 Mg Tablet, 5 MG PO DAILY, (Reported) Patient Home Medication List Home Medication List Reviewed: Yes Review of Systems Review of Systems Constitutional: see HPI EENTM: see HPI Respiratory: no symptoms reported Cardiovascular: no symptoms reported Gastrointestinal: abdominal pain Genitourinary: no symptoms reported Musculoskeletal: no symptoms reported Skin: no symptoms reported Psychiatric/Neurological: No Symptoms Reported Hematologic/Lymphatic: No Symptoms Reported Immunological/Allergic: no symptoms reported Past Uqazbul-Wvozin-Bdnera Hx Patient Social History Drug of Choice: BENZODIAZEPINE ABUSE Type Used: Cigarettes 2nd Hand Smoke Exposure: Yes Recent Foreign Travel: No Contact w/Someone Who Travel: No Recent Hopitalizations: No Immunizations Up To Date Tetanus Booster (TDap): Less than 5yrs PED Vaccines UTD: Yes Date of Influenza Vaccine: Aug 30, 2017 Seasonal Allergies Seasonal Allergies: No Past Medical History Surgeries: Yes (LAPAROTOMY; HYST ; LSO; ) Abdominal, Adenoidectomy, Appendectomy, Hysterectomy, Oophorectomy, Tonsi llectomy Respiratory: Yes Asthma Cardiac: Yes (Hx. 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 Sexually Transmitted Disease: No HIV/AIDS: No Genitourinary: No Gastrointestinal: No Musculoskeletal: Yes (chronic back pain; MULITPLE VARIOUS PAIN COMPLAINTS) Degenerate Disk Disease, Arthritis, Back Injury, Scoliosis, Chronic Back Pain Endocrine: No HEENT: Yes (CHRONIC DENTAL PAIN/EXTENSIVE DENTAL DECAY) Cancer: No Psychosocial: Yes (EXTENSIVE PSYCH HISTORY;BENZODIAZEPINE ABUSE) Anxiety, PTSD, Bipolar, Depression Integumentary: No Blood Disorders: No Adverse Reaction/Blood Tranf: No Family Medical History Family history: Hypertension (mother, MGM, and PGM) Heart disease (mother and father) History of - anemia (family Hx of blood transfusions) Infertile Kidney disease (MGM) No Pertinent Family Hx Physical Exam Vital Signs Vital Signs - First Documented 06/06/20 19:10 Temp 36.8 Pulse 112 Resp 16 B/P (MAP) 131/84 (100) O2 Delivery Room Air Capillary Refill : Height, Weight, BMI Height: 5'6.00" Weight: 130lbs. 0.0oz. 58.797168rr; 24.00 BMI Method:Stated General Appearance: No Apparent Distress, WD/WN Eyes: Bilateral Eye Normal Inspection, Bilateral Eye PERRL, Bilateral Eye EOMI Respiratory: No Accessory Muscle Use, No Respiratory Distress Cardiovascular: Regular Rate, Rhythm, Normal Peripheral Pulses Gastrointestinal: Normal Bowel Sounds, Non Tender, Soft Neurologic/Psychiatric: Alert, Oriented x3 Skin: Normal Color, Warm/Dry Progress/Results/Core Measures Suspected Sepsis SIRS Temperature: Pulse: Respiratory Rate: Laboratory Tests 06/06/20 19:25: White Blood Count 11.3H Blood Pressure / Mean: Laboratory Tests 06/06/20 19:25: Creatinine 0.76, Platelet Count 268 Results/Orders Lab Results Laboratory Tests Test 06/06/20 19:16 06/06/20 19:25 06/06/20 20:00 Range/Units Urine Color YELLOW Urine Clarity CLEAR Urine pH 6.5 5-9 Urine Specific [place] 1.020 1.016-1.022 Urine Protein NEGATIVE NEGATIVE Urine Glucose (UA) NEGATIVE NEGATIVE Urine Ketones NEGATIVE NEGATIVE Urine Nitrite NEGATIVE NEGATIVE Urine Bilirubin NEGATIVE NEGATIVE Urine Urobilinogen 0.2 < = 1.0 MG/DL Urine Leukocyte Esterase NEGATIVE NEGATIVE Urine RBC (Auto) 1+ H NEGATIVE Urine RBC 0-2 /HPF Urine WBC RARE /HPF Urine Squamous Epithelial Cells 10-25 H /HPF Urine Crystals PRESENT H /LPF Urine Amorphous Sediment MOD [place] URATES H /LPF Urine Bacteria TRACE /HPF Urine Casts NONE /LPF Urine Mucus MODERATE H /LPF Urine Culture Indicated NO Urine Opiates Screen NEGATIVE NEGATIVE Urine Oxycodone Screen NEGATIVE NEGATIVE Urine Methadone Screen NEGATIVE NEGATIVE Urine Propoxyphene Screen NEGATIVE NEGATIVE Urine Barbiturates Screen NEGATIVE NEGATIVE Ur Tricyclic Antidepressants Screen NEGATIVE NEGATIVE Urine Phencyclidine Screen NEGATIVE NEGATIVE Urine Amphetamines Screen NEGATIVE NEGATIVE Urine Methamphetamines Screen NEGATIVE NEGATIVE Urine Benzodiazepines Screen POSITIVE H NEGATIVE Urine Cocaine Screen NEGATIVE NEGATIVE Urine Cannabinoids Screen NEGATIVE NEGATIVE White Blood Count 11.3 H 4.3-11.0 10^3/uL Red Blood Count 4.97 4.35-5.85 10^6/uL Hemoglobin 14.7 11.5-16.0 G/DL Hematocrit 43 35-52 % Mean Corpuscular Volume 87 80-99 FL Mean Corpuscular Hemoglobin 30 25-34 PG Mean Corpuscular Hemoglobin Concent 34 32-36 G/DL Red Cell Distribution Width 13.1 10.0-14.5 % Platelet Count 268 130-400 10^3/uL Mean Platelet Volume 10.3 7.4-10.4 FL Neutrophils (%) (Auto) 60 42-75 % Lymphocytes (%) (Auto) 29 12-44 % Monocytes (%) (Auto) 9 0-12 % Eosinophils (%) (Auto) 2 0-10 % Basophils (%) (Auto) 0 0-10 % Neutrophils # (Auto) 6.8 1.8-7.8 X 10^3 Lymphocytes # (Auto) 3.3 1.0-4.0 X 10^3 Monocytes # (Auto) 1.0 0.0-1.0 X 10^3 Eosinophils # (Auto) 0.2 0.0-0.3 10^3/uL Basophils # (Auto) 0.0 0.0-0.1 10^3/uL Sodium Level 140 135-145 MMOL/L Potassium Level 3.6 3.6-5.0 MMOL/L Chloride Level 105 98-107 MMOL/L Carbon Dioxide Level 23 21-32 MMOL/L Anion Gap 12 5-14 MMOL/L Blood Urea Nitrogen 16 7-18 MG/DL Creatinine 0.76 0.60-1.30 MG/DL Estimat Glomerular Filtration Rate > 60 BUN/Creatinine Ratio 21 Glucose Level 91 70-105 MG/DL Calcium Level 9.7 8.5-10.1 MG/DL C-Reactive Protein High Sensitivity 0.04 0.00-0.50 MG/DL Serum Test, Qualitative NEGATIVE NEGATIVE My Orders Orders - ISMAEL SOL APRN Ua Culture If Indicated (06/06/20 19:06) Hcg,Qualitative Serum (06/06/20 19:06) Cbc With Automated Diff (06/06/20 19:06) Basic Metabolic Panel (06/06/20 19:06) Drug Screen Stat (Urine) (06/06/20 19:06) Methocarbamol Tablet (Robaxin Tablet) (06/06/20 19:30) Ibuprofen Tablet (Motrin Tablet) (06/06/20 19:30) Hs C Reactive Protein (06/06/20 19:25) Wet Prep (06/06/20 19:59) Neisseria Gonorrhea Swab (06/06/20 19:59) Genital Culture (06/06/20 19:59) Chlamydia Trachomatis Swab (06/06/20 19:59) Medications Given in ED Current Medications Medications Dose Ordered Sig/Antonia Route Start Time Stop Time Status Last Admin Dose Admin Ibuprofen 800 mg ONCE ONCE PO 06/06/20 19:30 06/06/20 19:31 DC 06/06/20 19:35 800 MG Methocarbamol 750 mg ONCE ONCE PO 06/06/20 19:30 06/06/20 19:31 DC 06/06/20 19:35 750 MG Vital Signs/I&O 06/06/20 19:10 Temp 36.8 Pulse 112 Resp 16 B/P (MAP) 131/84 (100) O2 Delivery Room Air Capillary Refill : Departure Communication (Admissions) 195-Now reports some right-sided abdominal pain as well. Despite this her labs are entirely normal. I don't see any reason for imaging study. Will get a self collected pelvic swab then she can go home. Impression Primary Impression: Nonspecific abdominal pain Additional Impression: Bacterial vaginosis Disposition: HOME, SELF-CARE Condition: Stable Departure-Patient Inst. Decision time for Depature: 20:24 Referrals: NEWTON MONTEJO MD (PCP/Family) Primary Care Physician Patient Instructions: Bacterial Vaginosis Add. Discharge Instructions: 1. Follow-up with your doctor next week 2. Antibiotics as directed 3. Scripts Acetaminophen/Diphenhydramine (Percogesic 325-12.5 mg Tablet) 1 Each Tablet 2 EACH PO Q6H PRN for PAIN-MODERATE (5-7), #14 TAB Prov: ISMAEL SOL APRN 06/06/20 Metronidazole (Metronidazole) 500 Mg Tablet 500 MG PO BID, #14 TAB 0 Refills Prov: ISMAEL SOL APRN 06/06/20 Images Torso/Trunk 1 - Tenderness ISMAEL SOL APRN Jun 06, 2020 19:18
[2020-06-06 19:24] LABS: BILIRUBIN,URINE NEGATIVE (NEGATIVE); CLARITY,URINE CLEAR; COLOR,URINE YELLOW; GLUCOSE, URINE (UA) NEGATIVE (NEGATIVE); KETONES,URINE NEGATIVE (NEGATIVE); LEUKOCYTE ESTERASE ,URINE NEGATIVE (NEGATIVE); NITRITE,URINE NEGATIVE (NEGATIVE); PH,URINE 6.5 (5-9); PROTEIN,URINE NEGATIVE (NEGATIVE)
[2020-06-06] MEDS ORDERED: METHOCARBAMOL 750 MG (ROBAXIN) TAB PO ONE (19:30)
[2020-06-06] MEDS ORDERED: IBUPROFEN 800 MG (MOTRIN) TAB PO ONE (19:30)
[2020-06-06 19:33] LABS: BACTERIA,URINE TRACE /HPF; RBC,URINE 0-2 /HPF; WBC,URINE RARE /HPF
[2020-06-06 19:33] LABS: BASOPHILS % (AUTO) 0 % (0-10); EOSINOPHILS # (AUTO) 0.2 10^3/uL (0.0-0.3); EOSINOPHILS % (AUTO) 2 % (0-10); HEMATOCRIT 43 % (35-52); HEMOGLOBIN 14.7 G/DL (11.5-16.0); LYMPHOCYTES # (AUTO) 3.3 X 10^3 (1.0-4.0); LYMPHOCYTES % (AUTO) 29 % (12-44); MEAN CORPUSCULAR HEMOGLOBIN 30 PG (25-34); MEAN CORPUSCULAR HGB CONC 34 G/DL (32-36); MEAN CORPUSCULAR VOLUME 87 FL (80-99); MEAN PLATELET VOLUME 10.3 FL (7.4-10.4); MONOCYTES % (AUTO) 9 % (0-12); NEUTROPHILS # (AUTO) 6.8 X 10^3 (1.8-7.8); NEUTROPHILS % (AUTO) 60 % (42-75); PLATELET COUNT 268 10^3/uL (130-400); RED CELL DISTRIBUTION WIDTH 13.1 % (10.0-14.5); WHITE BLOOD COUNT 11.3 10^3/uL (4.3-11.0)
[2020-06-06 19:34] LABS: AMORPHOUS SEDIMENT,UR MOD AMOR URATES /LPF
[2020-06-06 19:35] LABS: AMPHETAMINE SCREEN, URINE NEGATIVE (NEGATIVE); BARBITURATE SCREEN URINE NEGATIVE (NEGATIVE); BENZODIAZEPINES SCREEN URINE POSITIVE (NEGATIVE); CANNABINOID SCREEN, URINE NEGATIVE (NEGATIVE); COCAINE SCREEN URINE NEGATIVE (NEGATIVE); METHADONE STAT NEGATIVE (NEGATIVE); METHAMPHETAMINE SCREEN URINE S NEGATIVE (NEGATIVE); OPIATE SCREEN URINE NEGATIVE (NEGATIVE); OXYCODONE STAT NEGATIVE (NEGATIVE); PROPOXYPHENE STAT NEGATIVE (NEGATIVE); TRICYCLIC ANTIDEPRESSANTS SCRE NEGATIVE (NEGATIVE)
[2020-06-06 19:55] LABS: BUN/CREATININE RATIO 21; CALCIUM 9.7 MG/DL (8.5-10.1); CARBON DIOXIDE 23 MMOL/L (21-32); CHLORIDE 105 MMOL/L (98-107); CREATININE SERUM 0.76 MG/DL (0.60-1.30); GFR ESTIMATED > 60; GLUCOSE 91 MG/DL (70-105); POTASSIUM 3.6 MMOL/L (3.6-5.0); SODIUM 140 MMOL/L (135-145)
[2020-06-06] MEDS ORDERED: ACET-1672 PO (20:26)
[2020-06-06] MEDS ORDERED: METR-145 PO (20:26)
[2020-06-06 20:31] VITALS: BP 130/82
== END 2020-06-06 20:31 | disposition home or self-care (01) ==
LOC: EDUNIT# 19:02 → ER 19:03
DX: R10.9 Unspecified abdominal pain (principal); N76.0 Acute vaginitis; J45.909 Unspecified asthma, uncomplicated; Z88.0 Allergy status to penicillin; Z88.8 Allergy status to other drugs, medicaments and biological substances; Z77.22 Contact with and (suspected) exposure to environmental tobacco smoke (acute) (chronic)
CPT/HCPCS: 36415; 80048; 80306; 81000; 84703; 85025; 86141; 87070; 87205; 87210; 87491; 87591

== ENCOUNTER 2020-07-25 23:40 | Emergency (ER) | payer SELFPAY ==
[~2020-07-25] VITALS: Ht 170 cm; Wt 65.0 kg
[~2020-07-25 23:40] MED LIST changes: +ACET-1672 PO; -OXYC-465 PO; +OXYC-556 PO
--- NOTE | 2020-07-26 00:33 | ED Cardiac General ---
History of Present Illness General Chief Complaint: Chest Pain Stated Complaint: CP,SOB, L ARM NUMBNESS,NECK PAIN Source: patient Exam Limitations: no limitations History of Present Illness Date Seen by Provider: Jul 26, 2020 Time Seen by Provider: 00:33 Initial Comments Patient presents with chest pain, left-sided neck pain, left arm numbness, mild occasional shortness of breath. She reports the symptoms of the chest pain and other symptoms started around 5:30 today. The left arm numbness and neck pain gets worse with movement and manipulation of her head and left arm. Nothing seems to affected chest pain. She is not short of breath at this time. She reports she works at a [employer] center and didn't come into she off work. She does not have any fevers chills cough nausea vomiting diaphoresis or other systemic complaints. She reports she has a history of palpitations but no other cardiac history. Allergies and Home Medications Allergies Coded Allergies: Penicillins (Unverified Allergy, Mild, PT ABLE TO TAKE ANCEF, 03/17/20) diclofenac (Unverified Allergy, Unknown, 03/17/20) divalproex sodium (Verified Allergy, Unknown, 03/17/20) Home Medications Acetaminophen/Diphenhydramine 1 Each Tablet, 2 EACH PO Q6H PRN for PAIN-MODERATE (5-7) Prescribed by: ISMAEL SOL on 06/06/202025 Budesonide/Formoterol Fumarate 10.2 Gm Hfa.aer.ad, 2 PUFF IH BID, (Reported) Cefdinir 300 Mg Capsule, 300 MG PO BID Prescribed by: MIRANDA LOCO on 03/17/20105 Lidocaine HCl 15 Ml Solution, 1-2 ML MM [id number] Prescribed by: MIRANDA LOCO on 03/17/20105 Metronidazole 500 Mg Tablet, 500 MG PO BID Prescribed by: ISMAEL SOL on 06/06/202025 Nebivolol HCl 5 Mg Tablet, 5 MG PO DAILY, (Reported) Patient Home Medication List Home Medication List Reviewed: Yes Review of Systems Review of Systems Constitutional: No chills, No fever EENTM: No Symptoms Reported Respiratory: See HPI; Denies Cough Cardiovascular: See HPI, Chest Pain Gastrointestinal: Denies Nausea, Denies Vomiting Musculoskeletal: see HPI Skin: no symptoms reported Psychiatric/Neurological: See HPI Endocrine: No Symptoms Reported Past Ouzctqx-Emposo-Xfwfbr Hx Past Med/Social Hx: Reviewed Nursing Past Med/Soc Hx Patient Social History Drug of Choice: BENZODIAZEPINE ABUSE Type Used: Cigarettes 2nd Hand Smoke Exposure: Yes Recent Foreign Travel: No Contact w/Someone Who Travel: No (N) Recent Hopitalizations: No Immunizations Up To Date Tetanus Booster (TDap): Less than 5yrs PED Vaccines UTD: Yes Date of Influenza Vaccine: Aug 30, 2017 Seasonal Allergies Seasonal Allergies: No Past Medical History Surgeries: Yes (LAPAROTOMY; HYST ; LSO) Abdominal, Adenoidectomy, Appendectomy, Hysterectomy, Oophorectomy, Tonsillec laureano Respiratory: Yes Asthma Cardiac: Yes (Hx. 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 Sexually Transmitted Disease: No HIV/AIDS: No Genitourinary: No Gastrointestinal: No Musculoskeletal: Yes (chronic back pain; MULITPLE VARIOUS PAIN COMPLAINTS) Degenerate Disk Disease, Arthritis, Back Injury, Scoliosis, Chronic Back Pain Endocrine: No HEENT: Yes (CHRONIC DENTAL PAIN/EXTENSIVE DENTAL DECAY) Cancer: No Psychosocial: Yes (EXTENSIVE PSYCH HISTORY;BENZODIAZEPINE ABUSE) Anxiety, PTSD, Bipolar, Depression Integumentary: No Blood Disorders: No Adverse Reaction/Blood Tranf: No Family Medical History Family history: Hypertension (mother, MGM, and PGM) Heart disease (mother and father) History of - anemia (family Hx of blood transfusions) Infertile Kidney disease (MGM) No Pertinent Family Hx Physical Exam Vital Signs Vital Signs - First Documented 07/26/20 00:31 Temp 36.6 Pulse 92 Resp 16 B/P (MAP) 145/91 (109) Pulse Ox 98 O2 Delivery Room Air Capillary Refill : Height, Weight, BMI Height: 5'6.00" Weight: 130lbs. 0.0oz. 58.356473xb; 24.00 BMI Method:Stated General Appearance: No Apparent Distress, WD/WN Neck: Supple, Tender Lateral (left lateral tenderness, reproducible with range of motion or when there is movement against resistance) Respiratory: Lungs Clear, Normal Breath Sounds, No Respiratory Distress; No Decreased Breath Sounds Cardiovascular: Regular Rate, Rhythm, No Edema Gastrointestinal: Non Tender, Soft Extremity: Normal Capillary Refill, Other (left arm tenderness and reproducible numbness in her distal aspect with manipulation of neck and arm up above shoulder level) Neurologic/Psychiatric: Alert, Oriented x3, No Motor/Sensory Deficits Skin: Normal Color, Warm/Dry Lymphatic: No Adenopathy Progress/Results/Core Measures Results/Orders Lab Results Laboratory Tests Test 07/26/20 00:40 Range/Units White Blood Count 8.3 4.3-11.0 10^3/uL Red Blood Count 5.11 4.35-5.85 10^6/uL Hemoglobin 15.2 11.5-16.0 G/DL Hematocrit 45 35-52 % Mean Corpuscular Volume 88 80-99 FL Mean Corpuscular Hemoglobin 30 25-34 PG Mean Corpuscular Hemoglobin Concent 34 32-36 G/DL Red Cell Distribution Width 12.5 10.0-14.5 % Platelet Count 222 130-400 10^3/uL Mean Platelet Volume 11.3 H 7.4-10.4 FL Neutrophils (%) (Auto) 51 42-75 % Lymphocytes (%) (Auto) 38 12-44 % Monocytes (%) (Auto) 10 0-12 % Eosinophils (%) (Auto) 1 0-10 % Basophils (%) (Auto) 0 0-10 % Neutrophils # (Auto) 4.2 1.8-7.8 X 10^3 Lymphocytes # (Auto) 3.1 1.0-4.0 X 10^3 Monocytes # (Auto) 0.8 0.0-1.0 X 10^3 Eosinophils # (Auto) 0.1 0.0-0.3 10^3/uL Basophils # (Auto) 0.0 0.0-0.1 10^3/uL Prothrombin Time 13.1 12.2-14.7 SEC INR Comment 1.0 0.8-1.4 Activated Partial Thromboplast Time 32 24-35 SEC D-Dimer 0.78 H 0.00-0.49 UG/ML Sodium Level 141 135-145 MMOL/L Potassium Level 3.7 3.6-5.0 MMOL/L Chloride Level 103 98-107 MMOL/L Carbon Dioxide Level 25 21-32 MMOL/L Anion Gap 13 5-14 MMOL/L Blood Urea Nitrogen 11 7-18 MG/DL Creatinine 0.74 0.60-1.30 MG/DL Estimat Glomerular Filtration Rate > 60 BUN/Creatinine Ratio 15 Glucose Level 91 70-105 MG/DL Calcium Level 9.7 8.5-10.1 MG/DL Corrected Calcium 8.5-10.1 MG/DL Magnesium Level 2.2 1.6-2.4 MG/DL Total Bilirubin 0.3 0.1-1.0 MG/DL Aspartate Amino Transf (AST/SGOT) 16 5-34 U/L Alanine Aminotransferase (ALT/SGPT) 10 0-55 U/L Alkaline Phosphatase 58 40-136 U/L Myoglobin 14.9 10.0-92.0 NG/ML Troponin I < 0.028 <0.028 NG/ML Total Protein 8.1 6.4-8.2 GM/DL Albumin 4.7 H 3.2-4.5 GM/DL My Orders Orders - BAEZA,KISHAN L DO Cbc With Automated Diff (07/26/20 00:37) Magnesium (07/26/20 00:37) Chest 1 View, Ap/Pa Only (07/26/20 00:37) Ekg Tracing (07/26/20 00:37) Comprehensive Metabolic Panel (07/26/20 00:37) Myoglobin Serum (07/26/20 00:37) Protime With Inr (07/26/20 00:37) Partial Thromboplastin Time (07/26/20 00:37) Monitor-Rhythm Ecg Trace Only (07/26/20 00:37) Lipid Panel (07/27/20 06:00) Ed Iv/Invasive Line Start (07/26/20 00:37) Aspirin Chewable Tablet (Baby Aspirin Ch (07/26/20 00:45) Urine Bedside (07/26/20 00:37) Fibrin Degradation Products (07/26/20 00:40) Troponin I (07/26/20 00:40) Medications Given in ED Current Medications Medications Dose Ordered Sig/Antonia Route Start Time Stop Time Status Last Admin Dose Admin Aspirin 324 mg ONCE ONCE PO 07/26/20 00:45 07/26/20 00:46 DC 07/26/20 01:02 324 MG Vital Signs/I&O 07/26/20 07/26/20 00:31 00:31 Temp 36.6 Pulse 92 Resp 16 B/P (MAP) 145/91 (109) Pulse Ox 98 O2 Delivery Room Air Progress Progress Note : Time: 02:51 Progress Note Patient's symptoms are reproducible with manipulation. She is very low risk factor for any cardiac or pulmonary embolism. Patient is stable. She will be discharged home. I recommended she follow up with her primary care provider and Dr. Magana for reevaluation. Initial ECG Impression Date: Jul 26, 2020 Initial ECG Impression Time: 00:53 Initial ECG Rhythm: Normal Sinus Initial ECG Intervals: Normal Initial ECG Impression: Nonspecific Changes Departure Impression Primary Impression: Chest pain Qualified Codes: R07.9 - Chest pain, unspecified Additional Impressions: Paresthesia and pain of left extremity Cervical myofascial strain Qualified Codes: S16.1XXA - Strain of muscle, fascia and tendon at neck level, initial encounter Disposition: 01 HOME, SELF-CARE Condition: Stable Departure-Patient Inst. Referrals: NEWTON MONTEJO MD (PCP/Family) Primary Care Physician Patient Instructions: Chest Pain That Is Not Caused by the Heart (DC), Neck Pain Exercises, Paresthesia (DC) Add. Discharge Instructions: Follow-up with your primary care provider and Dr. Block for further evaluation Emergency department focuses on treating and ruling out life-threatening diseases. Whenever possible, a diagnosis is given. However, most patients are given an impression based on their history, physical exam, and workup during your brief time in the ER. Information about probable diagnosis and other educational material has been provided. Please take the time to read and understand this information. It is very important that you follow up with a physician as discussed during the visit today. Failure to adhere to your follow-up instructions may lead to severe disability, injury, or so please make sure to keep your appointments or ob tain one as requested. Please keep in mind the emergency department is not designed to your primary care or "family doctor" and nonurgent issues are best evaluated by an outpatient physician All discharge instructions reviewed with patient and/or family. Voiced understanding. KISHAN BAEZA DO Jul 26, 2020 00:33
[2020-07-26] MEDS ORDERED: ASPIRIN 81 MG CHEW (CHILDREN'S ASA) PO ONE (00:45)
[2020-07-26 02:00] LABS: ALBUMIN 4.7 GM/DL (3.2-4.5)
[2020-07-26 02:01] LABS: CHLORIDE 103 MMOL/L (98-107); POTASSIUM 3.7 MMOL/L (3.6-5.0); SODIUM 141 MMOL/L (135-145)
[2020-07-26 02:02] LABS: CALCIUM 9.7 MG/DL (8.5-10.1)
[2020-07-26 02:03] LABS: BASOPHILS % (AUTO) 0 % (0-10); EOSINOPHILS # (AUTO) 0.1 10^3/uL (0.0-0.3); EOSINOPHILS % (AUTO) 1 % (0-10); GLUCOSE 91 MG/DL (70-105); HEMATOCRIT 45 % (35-52); HEMOGLOBIN 15.2 G/DL (11.5-16.0); LYMPHOCYTES # (AUTO) 3.1 X 10^3 (1.0-4.0); LYMPHOCYTES % (AUTO) 38 % (12-44); MEAN CORPUSCULAR HEMOGLOBIN 30 PG (25-34); MEAN CORPUSCULAR HGB CONC 34 G/DL (32-36); MEAN CORPUSCULAR VOLUME 88 FL (80-99); MEAN PLATELET VOLUME 11.3 FL (7.4-10.4); MONOCYTES # (AUTO) 0.8 X 10^3 (0.0-1.0); MONOCYTES % (AUTO) 10 % (0-12); NEUTROPHILS # (AUTO) 4.2 X 10^3 (1.8-7.8); NEUTROPHILS % (AUTO) 51 % (42-75); PLATELET COUNT 222 10^3/uL (130-400); WHITE BLOOD COUNT 8.3 10^3/uL (4.3-11.0)
[2020-07-26 02:04] LABS: CARBON DIOXIDE 25 MMOL/L (21-32); TOTAL PROTEIN 8.1 GM/DL (6.4-8.2)
[2020-07-26 02:05] LABS: BILIRUBIN,TOTAL 0.3 MG/DL (0.1-1.0)
[2020-07-26 02:06] LABS: ALKALINE PHOSPHATASE 58 U/L (40-136)
[2020-07-26 02:07] LABS: CREATININE SERUM 0.74 MG/DL (0.60-1.30); GFR ESTIMATED > 60
[2020-07-26 02:08] LABS: BUN/CREATININE RATIO 15
[2020-07-26 02:10] LABS: ALANINE AMINOTRANSFERASE 10 U/L (0-55); MAGNESIUM 2.2 MG/DL (1.6-2.4)
[2020-07-26 02:13] LABS: FIBRIN DEGRADATION PRODUCTS 0.78 UG/ML (0.00-0.49); PROTHROMBIN TIME PATIENT 13.1 SEC (12.2-14.7)
[2020-07-26 03:00] VITALS: BP 112/78
--- NOTE | 2020-07-26 08:01 | Diagnostic Imaging Report ---
Indication: Chest pain Portable chest 12:56 AM Heart size and pulmonary vascularity are normal. Lungs are clear. There are no effusions or pneumothoraces. IMPRESSION: Negative chest Dictated by: Dictated on workstation # [id number]
== END 2020-07-26 03:00 | disposition home or self-care (01) ==
LOC: EDUNIT# 23:40 → ER 23:42
DX: S16.1XXA Strain of muscle, fascia and tendon at neck level, initial encounter (principal); R07.9 Chest pain, unspecified; R20.2 Paresthesia of skin; M79.602 Pain in left arm; J45.909 Unspecified asthma, uncomplicated; G89.29 Other chronic pain; M54.9 Dorsalgia, unspecified; Z88.0 Allergy status to penicillin; Z88.8 Allergy status to other drugs, medicaments and biological substances; Z77.22 Contact with and (suspected) exposure to environmental tobacco smoke (acute) (chronic); Z82.49 Family history of ischemic heart disease and other diseases of the circulatory system; X58.XXXA Exposure to other specified factors, initial encounter
CPT/HCPCS: 36415; 71045; 80053; 83735; 83874; 84484; 84703; 85025; 85379; 85610; 85730; 93041

== ENCOUNTER 2020-09-19 16:44 | Emergency (ER) | payer BC ==
[~2020-09-19] VITALS: Ht 167 cm; Wt 72.0 kg
[2020-09-19] MEDS ORDERED: CYCL10TA9 (17:02)
[2020-09-19] MEDS ORDERED: QUET50TA55 (17:02)
--- NOTE | 2020-09-19 17:30 | NUR ---
PT RESTING IN BED. NOTIFIED THAT A PROVIDER WOULD BE IN SOON THEY COULD. DENIES NEEDS AT THIS TIME.
--- NOTE | 2020-09-19 19:05 | ED Back Pain ---
General Chief Complaint: Hip/Pelvic Problems Stated Complaint: R LEG / HIP PAIN Nursing Triage Note: AMBULATED TO ROOM 03 WITHOUT DIFFICULTY. COMPLAINS OF RIGHT HIP ET PELVIC PAIN X2 WEEKS ALONG WITH A OFF AND ON FEVER. DENIES INJURY. STATES SHE WAS COVID TESTED TODAY AND IT WAS NEG. Nursing Sepsis Screen: No Definite Risk Source of Information: Patient Exam Limitations: No Limitations History of Present Illness Date Seen by Provider: Sep 19, 2020 Time Seen by Provider: 18:17 Initial Comments Patient presents ER by private conveyance from home with chief complaint for the past 2 weeks now she's had progressive weakening and pain in her right hip. She says starts in her low back and radiates down her leg to the level of her heel. She's had an MRI about a year or so ago which revealed she had narrowing of the outlet in her lumbar spine. She has done physical therapy through [facility] as well as steroids and continues to do NSAIDs daily. She is followed by Dr. Montejo. She has an appointment October 13 with a neurosurgeon, Dr. Yuen at [place], [place]. She has not seen a neurosurgeon yet. She is not having incontinence of bowel or bladder. No fevers chills. She says occasionally her leg will go out from underneath her. She denies any history of trauma or overuse or other injury to her right hip. She says she has weakness in her large muscles of her right leg. Allergies and Home Medications Allergies Coded Allergies: Penicillins (Unverified Allergy, Mild, PT ABLE TO TAKE ANCEF, 03/17/20) diclofenac (Unverified Allergy, Unknown, 03/17/20) divalproex sodium (Verified Allergy, Unknown, 03/17/20) Patient Home Medication List Home Medication List Reviewed: Yes Review of Systems Constitutional: No chills, No diaphoresis EENTM: No ear discharge, No ear pain Respiratory: No cough, No short of breath Cardiovascular: No chest pain, No Hx of Intervention Gastrointestinal: No abdominal pain, No nausea Genitourinary: No dysuria, No frequency : No Control/STD Prophylaxis: None Musculoskeletal: see HPI, back pain, joint pain All Other Systems Reviewed Negative Unless Noted: Yes Past Ydhhdew-Rblcby-Aqmoup Hx Patient Social History Alcohol Use: Denies Use Recreational Drug Use: No Drug of Choice: BENZODIAZEPINE ABUSE Smoking Status: Current Everyday Smoker Type Used: Cigarettes 2nd Hand Smoke Exposure: Yes Recent Foreign Travel: No Contact w/Someone Who Travel: No Recent Infectious Disease Expo: No Recent Hopitalizations: No Immunizations Up To Date Tetanus Booster (TDap): Less than 5yrs PED Vaccines UTD: Yes Date of Influenza Vaccine: Aug 30, 2017 Seasonal Allergies Seasonal Allergies: No Past Medical History Surgeries: Yes (LAPAROTOMY; HYST ; LSO) Abdominal, Adenoidectomy, Appendectomy, Hysterectomy, Oophorectomy, Tonsillectomy Respiratory: Yes Asthma Cardiac: Yes (Hx. 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 Sexually Transmitted Disease: No HIV/AIDS: No Genitourinary: No Gastrointestinal: No Musculoskeletal: Yes (chronic back pain; MULITPLE VARIOUS PAIN COMPLAINTS) Degenerate Disk Disease, Arthritis, Back Injury, Scoliosis, Chronic Back Pain Endocrine: No HEENT: Yes (CHRONIC DENTAL PAIN/EXTENSIVE DENTAL DECAY) Cancer: No Psychosocial: Yes (EXTENSIVE PSYCH HISTORY;BENZODIAZEPINE ABUSE) Anxiety, PTSD, Bipolar, Depression Integumentary: No Blood Disorders: No Adverse Reaction/Blood Tranf: No Family Medical History Family history: Hypertension (mother, MGM, and PGM) Heart disease (mother and father) History of - anemia (family Hx of blood transfusions) Infertile Kidney disease (MGM) No Pertinent Family Hx Physical Exam Vital Signs Vital Signs - First Documented 09/19/20 16:50 Temp 36.8 Pulse 121 Resp 16 B/P (MAP) 118/81 (93) Pulse Ox 97 O2 Delivery Room Air Capillary Refill : Less Than 3 Seconds Height, Weight, BMI Height: 5'6.00" Weight: 130lbs. 0.0oz. 58.940500nv; 25.00 BMI Method:Stated General Appearance: No Apparent Distress, WD/WN HEENT: PERRL/EOMI, Pharynx Normal, Moist Mucous Membranes Neck: Full Range of Motion, Normal Inspection Cardiovascular: Regular Rate, Rhythm, Normal Peripheral Pulses Respiratory: Chest Non Tender, No Accessory Muscle Use, No Respiratory Distress Peripheral Pulses: 2+ Dorsalis Pedis (R), 2+ Left Dors-Pedis (L), 2+ Radial Pulses (R), 2+ Radial Pulses (L) Gastrointestinal: Normal Bowel Sounds, Non Tender, Soft Extremity: Normal Capillary Refill, Normal Inspection Neurologic/Psychiatric: Alert, Oriented x3, Motor Weakness (right lower extremity 4 out of 5 strength); No Sensory Deficit Skin: Normal Color, Warm/Dry Progress/Results/Core Measures Results/Orders Vital Signs/I&O 09/19/20 16:50 Temp 36.8 Pulse 121 Resp 16 B/P (MAP) 118/81 (93) Pulse Ox 97 O2 Delivery Room Air Blood Pressure Mean: 93 Progress Progress Note : Time: 19:17 Progress Note Patient has extensive workup in the past for her lumbar radiculopathy. She been over a year since she's had an MRI. We do not have MRI presently available but she does have some red flag signs of the past couple weeks of her leg giving out from underneath her and some decreased motor strength as well as paresthesias going down the level of her heel. We did discuss doing a CT of her lumbar spine versus setting her up for an MRI later this week and she would prefer just to get the MRI. We'll put her on prednisone to try and reduce the inflammation in her lumbar spine and return some of her function. Departure Impression Primary Impression: Lumbar radiculopathy Disposition: 01 HOME, SELF-CARE Condition: Stable Departure-Patient Inst. Decision time for Depature: 19:18 Referrals: NEWTON MONTEJO MD (PCP/Family) Primary Care Physician Patient Instructions: Low Back Pain in Adults, Spinal Stenosis Strengthening Exercises Add. Discharge Instructions: Included is a handout on some exercises. Monday call the outpatient order Center and set up your MRI. Follow-up with the results with your neurosurgeon as well as Dr. Montejo. 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 Then take 2 tablets daily for 3 days. Finally one tablet daily for 3 days. Continue taking Tylenol, ibuprofen, ice and heat along her lower back as well as topical creams to reduce the swelling in your back that is causing the weakness and pain in your right hip. All discharge instructions reviewed with patient and/or family. Voiced understanding. Scripts Prednisone (Prednisone) 20 Mg Tab 60 MG PO DAILY for 9 Days, #18 TAB 0 Refills 3 tabs(60mg)daily x 3 days 2 tabs(40mg)daily x 3 days 1 tabs(20mg)daily x 3 days Prov: FIORELLA MUNROE 09/19/20 Copy Copies To 1: NEWTON MONTEJO MD, TITUS J Sep 19, 2020 19:05
[2020-09-19] MEDS ORDERED: PRD20T PO (19:22)
[2020-09-19 19:25] VITALS: BP 116/79
== END 2020-09-19 19:28 | disposition home or self-care (01) ==
LOC: EDUNIT# 16:44 → ER 16:45
DX: M54.16 Radiculopathy, lumbar region (principal); F17.210 Nicotine dependence, cigarettes, uncomplicated; Z79.1 Long term (current) use of non-steroidal anti-inflammatories (NSAID); Z79.899 Other long term (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; Z88.0 Allergy status to penicillin; Z88.6 Allergy status to analgesic agent; Z88.8 Allergy status to other drugs, medicaments and biological substances
CPT/HCPCS: 99281

== ENCOUNTER → 2020-10-15 | Outpatient (CLI) | payer BC ==
[~2020-10-15] MED LIST changes: -CLIN300C11 PO; +CLIN300C12 PO; +CYCL10TA9; +MIRT-94 PO; -MIRT30TA PO; +QUET50TA55
--- NOTE | 2020-10-15 16:56 | Diagnostic Imaging Report ---
PROCEDURE: MRI lumbar spine. TECHNIQUE: Multiplanar, multisequence MRI of the lumbar spine was performed without contrast. INDICATION: Chronic low back pain and lower extremity weakness. COMPARISON: Comparison is made to study of 06/25/2019. FINDINGS: There is mild left convexity curvature of the lumbar spine which is similar to the previous study. Otherwise, vertebral body heights and disc spaces are maintained. There is mild annular bulging of the L4-L5 disc without significant spinal stenosis. There does appear to be minimal bilateral neuroforaminal stenosis in the craniocaudad dimension. At L5-S1, disc bulging is associated with degenerative facet arthropathy which is greater on the left. This causes mild right and [id number] left neuroforaminal stenosis. These findings may have shown slight progression when compared to previous study. Conus medullaris is unremarkable at the T12 level and there is no evidence of lumbar spinal fracture. IMPRESSION: L4-L5 disc bulging, causing minimal bilateral neuroforaminal stenosis. There is also mild L5-S1 disc bulging and degenerative facet arthropathy, greater on the left, resulting in mild right and moderate left neuroforaminal stenoses. Dictated by: Dictated on workstation # [id number]
== END ==
LOC: RAD 16:06
PROVIDERS: ATTEND Emergency Medicine
DX: M48.061 Spinal stenosis, lumbar region without neurogenic claudication (principal); M51.26 Other intervertebral disc displacement, lumbar region; M62.81 Muscle weakness (generalized)
CPT/HCPCS: 72148

== ENCOUNTER 2021-01-04 12:54 | Emergency (ER) | payer BC ==
[~2021-01-04] VITALS: Ht 167 cm; Wt 72.0 kg
[~2021-01-04 12:54] MED LIST changes: +QUET50TA22; -QUET50TA55
[2021-01-04 13:23] LABS: BASOPHILS % (AUTO) 0 % (0-10); EOSINOPHILS # (AUTO) 0.1 10^3/uL (0.0-0.3); EOSINOPHILS % (AUTO) 0 % (0-10); HEMATOCRIT 47 % (35-52); HEMOGLOBIN 15.1 g/dL (11.5-16.0); LYMPHOCYTES # (AUTO) 4.7 10^3/uL (1.0-4.0); LYMPHOCYTES % (AUTO) 35 % (12-44); MEAN CORPUSCULAR HEMOGLOBIN 29 pg (25-34); MEAN CORPUSCULAR HGB CONC 32 g/dL (32-36); MEAN CORPUSCULAR VOLUME 90 fL (80-99); MEAN PLATELET VOLUME 11.2 fL (9.0-12.2); MONOCYTES # (AUTO) 1.1 10^3/uL (0.0-1.0); MONOCYTES % (AUTO) 8 % (0-12); NEUTROPHILS # (AUTO) 7.6 10^3/uL (1.8-7.8); NEUTROPHILS % (AUTO) 56 % (42-75); PLATELET COUNT 296 10^3/uL (130-400); WHITE BLOOD COUNT 13.6 10^3/uL (4.3-11.0)
[2021-01-04 13:27] LABS: CHLORIDE 98 MMOL/L (98-107); POTASSIUM 3.2 MMOL/L (3.6-5.0); SODIUM 139 MMOL/L (135-145)
[2021-01-04 13:29] LABS: GLUCOSE 197 MG/DL (70-105)
[2021-01-04 13:30] LABS: CARBON DIOXIDE 10 MMOL/L (21-32)
[2021-01-04 13:33] LABS: CREATININE SERUM 0.99 MG/DL (0.60-1.30); GFR ESTIMATED > 60
[2021-01-04 13:34] LABS: BUN/CREATININE RATIO 15
[2021-01-04 13:40] LABS: BILIRUBIN,URINE NEGATIVE (NEGATIVE); CLARITY,URINE SL CLOUDY; COLOR,URINE YELLOW; GLUCOSE, URINE (UA) NEGATIVE (NEGATIVE); KETONES,URINE 3+ (NEGATIVE); LEUKOCYTE ESTERASE ,URINE NEGATIVE (NEGATIVE); NITRITE,URINE NEGATIVE (NEGATIVE); PH,URINE 6.5 (5-9); PROTEIN,URINE 1+ (NEGATIVE)
[2021-01-04 13:56] LABS: WBC,URINE RARE /HPF
[2021-01-04 13:57] LABS: BACTERIA,URINE FEW /HPF; YEAST,URINE RARE /HPF
[2021-01-04] MEDS ORDERED: NS IV 1000 ML 1,000 ML IV SCH (14:00)
--- NOTE | 2021-01-04 14:01 | ED Syncope ---
General Chief Complaint: Dizziness/Syncope Stated Complaint: UNRESPONSIVE Nursing Triage Note: Pt to ED via [facility]. 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 Pt reports she has had some seizures in the past but no diagnosed seizure disorder. Source of Information: Patient Exam Limitations: No Limitations History of Present Illness Date Seen by Provider: Jan 04, 2021 Time Seen by Provider: 13:10 Initial Comments Patient presents to the ER by EMS from the gas pumps were she was feeling up and she says she started to get one of her typical migraine headaches and had darkening of the vision in her right eye. She then passed out. She has a history of psychogenic seizures and EMS said she was not postictal when they arrived. Blood sugar around 190s. She says she was sick all last week with nausea vomiting diarrhea and is feeling better now but still feels dehydrated. She had testing by Dr. Montejo for influenza and COVID-19 both of which were negative. Allergies and Home Medications Allergies Coded Allergies: Penicillins (Unverified Allergy, Mild, PT ABLE TO TAKE ANCEF, 03/17/20) diclofenac (Unverified Allergy, Unknown, 03/17/20) divalproex sodium (Verified Allergy, Unknown, 03/17/20) Home Medications Prednisone 20 Mg Tab, 60 MG PO DAILY 3 tabs(60mg)daily x 3 days 2 tabs(40mg)daily x 3 days 1 tabs(20mg)daily x 3 days Prescribed by: FIORELLA MUNROE on 09/19/201921 Patient Home Medication List Home Medication List Reviewed: Yes Review of Systems Constitutional: No chills, No fever, No malaise EENTM: No ear discharge, No hearing loss Respiratory: No cough, No dyspnea on exertion Cardiovascular: No chest pain, No palpitations Gastrointestinal: No abdominal pain, No nausea, No vomiting Genitourinary: No discharge, No dysuria : No Musculoskeletal: No back pain, No joint pain All Other Systems Reviewed Negative Unless Noted: Yes Past Akymbab-Bbluoo-Nonhej Hx Patient Social History Alcohol Use: Denies Use Drug of Choice: BENZODIAZEPINE ABUSE Smoking Status: Current Everyday Smoker Type Used: Cigarettes 2nd Hand Smoke Exposure: Yes Recent Infectious Disease Expo: No Recent Hopitalizations: No Immunizations Up To Date Tetanus Booster (TDap): Less than 5yrs PED Vaccines UTD: Yes Date of Influenza Vaccine: Aug 30, 2017 Seasonal Allergies Seasonal Allergies: No Past Medical History Surgeries: Yes (LAPAROTOMY; HYST ; LSO) Abdominal, Adenoidectomy, Appendectomy, Hysterectomy, Oophorectomy, Tonsillectomy Respiratory: Yes Asthma Cardiac: Yes (Hx. 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) Headaches /Migraines, Seizure Disorder Reproductive Disorders: Yes Female Reproductive Disorders: Menstrual Problems, Endometriosis, Ovarian Cyst, Polycystic Ovarian Dis [employer] History: Hysterectomy Sexually Transmitted Disease: No HIV/AIDS: No Genitourinary: No Gastrointestinal: No Musculoskeletal: Yes (chronic back pain; MULITPLE VARIOUS PAIN COMPLAINTS) Degenerate Disk Disease, Arthritis, Back Injury, Scoliosis, Chronic Back Pain Endocrine: No HEENT: Yes (CHRONIC DENTAL PAIN/EXTENSIVE DENTAL DECAY) Cancer: No Psychosocial: Yes (EXTENSIVE PSYCH HISTORY;BENZODIAZEPINE ABUSE) Anxiety, PTSD, Bipolar, Depression Integumentary: No Blood Disorders: No Adverse Reaction/Blood Tranf: No Family Medical History Family history: Hypertension (mother, MGM, and PGM) Heart disease (mother and father) History of - anemia (family Hx of blood transfusions) Infertile Kidney disease (MGM) No Pertinent Family Hx Physical Exam Vital Signs Vital Signs - First Documented 01/04/21 13:01 Temp 36.6 Pulse 135 Resp 18 B/P (MAP) 114/82 (93) Pulse Ox 99 O2 Delivery Room Air Capillary Refill : Less Than 3 Seconds Height, Weight, BMI Height: 5'6.00" Weight: 130lbs. 0.0oz. 58.636368wi; 25.00 BMI Method:Stated General Appearance: No Apparent Distress, WD/WN HEENT: PERRL/EOMI (4 mm bilateral reactive, negative for raccoon eyes), TMs Normal (Negative for gutierrez sign), Normal ENT Inspection, Pharynx Normal, Moist Mucous Membranes Neck: Full Range of Motion, Normal Inspection, Non Tender Cardiovascular: Regular Rate, Rhythm, No Edema, Normal Peripheral Pulses Respiratory: Lungs Clear, Normal Breath Sounds, No Accessory Muscle Use, No Respiratory Distress Gastrointestinal: Normal Bowel Sounds, Non Tender, Soft Extremities: Normal Capillary Refill, Normal Inspection, No Pedal Edema Neurologic/Psychiatric: Alert, Oriented x3, No Motor/Sensory Deficits, Normal Mood/Affect Cranial Nerves: Normal Hearing, Normal Speech, PERRL Motor/Sensory: No Motor Deficit, No Sensory Deficit Skin: Normal Color, Warm/Dry Progress/Results/Core Measures Results/Orders Lab Results Laboratory Tests Test 01/04/21 13:03 01/04/21 13:28 Range/Units White Blood Count 13.6 H 4.3-11.0 10^3/uL Red Blood Count 5.19 H 3.80-5.11 10^6/uL Hemoglobin 15.1 11.5-16.0 g/dL Hematocrit 47 35-52 % Mean Corpuscular Volume 90 80-99 fL Mean Corpuscular Hemoglobin 29 25-34 pg Mean Corpuscular Hemoglobin Concent 32 32-36 g/dL Red Cell Distribution Width 11.9 10.0-14.5 % Platelet Count 296 130-400 10^3/uL Mean Platelet Volume 11.2 9.0-12.2 fL Immature Granulocyte % (Auto) 0 % Neutrophils (%) (Auto) 56 42-75 % Lymphocytes (%) (Auto) 35 12-44 % Monocytes (%) (Auto) 8 0-12 % Eosinophils (%) (Auto) 0 0-10 % Basophils (%) (Auto) 0 0-10 % Neutrophils # (Auto) 7.6 1.8-7.8 10^3/uL Lymphocytes # (Auto) 4.7 H 1.0-4.0 10^3/uL Monocytes # (Auto) 1.1 H 0.0-1.0 10^3/uL Eosinophils # (Auto) 0.1 0.0-0.3 10^3/uL Basophils # (Auto) 0.0 0.0-0.1 10^3/uL Immature Granulocyte # (Auto) 0.0 0.0-0.1 10^3/uL Sodium Level 139 135-145 MMOL/L Potassium Level 3.2 L 3.6-5.0 MMOL/L Chloride Level 98 98-107 MMOL/L Carbon Dioxide Level 10 L 21-32 MMOL/L Anion Gap 31 H 5-14 MMOL/L Blood Urea Nitrogen 15 7-18 MG/DL Creatinine 0.99 0.60-1.30 MG/DL Estimat Glomerular Filtration Rate > 60 BUN/Creatinine Ratio 15 Glucose Level 197 H 70-105 MG/DL Calcium Level 10.0 8.5-10.1 MG/DL Troponin I < 0.028 <0.028 NG/ML Urine Color YELLOW Urine Clarity SL CLOUDY Urine pH 6.5 5-9 Urine Specific [place] 1.025 H 1.016-1.022 Urine Protein 1+ H NEGATIVE Urine Glucose (UA) NEGATIVE NEGATIVE Urine Ketones 3+ H NEGATIVE Urine Nitrite NEGATIVE NEGATIVE Urine Bilirubin NEGATIVE NEGATIVE Urine Urobilinogen 0.2 < = 1.0 MG/DL Urine Leukocyte Esterase NEGATIVE NEGATIVE Urine RBC (Auto) 1+ H NEGATIVE Urine RBC 5-10 H /HPF Urine WBC RARE /HPF Urine Squamous Epithelial Cells 10-25 H /HPF Urine Crystals NONE /LPF Urine Bacteria FEW H /HPF Urine Casts NONE /LPF Urine Mucus MODERATE H /LPF Urine Yeast RARE /HPF Urine Culture Indicated YES My Orders Orders - FIORELLA MUNROE Ekg Tracing (01/04/21 13:17) Cbc With Automated Diff (01/04/21 13:17) Troponin I (01/04/21 13:17) Basic Metabolic Panel (01/04/21 13:17) Ua Culture If Indicated (01/04/21 13:17) Chest 1 View, Ap/Pa Only (01/04/21 13:17) Urine Culture (01/04/21 13:28) Ed Iv/Invasive Line Start (01/04/21 13:58) Ns Iv 1000 Ml (Sodium Chloride 0.9%) (01/04/21 14:00) Promethazine Injection (Phenergan Injec (01/04/21 14:15) Ketorolac Injection (Toradol Injection) (01/04/21 14:15) Medications Given in ED Current Medications Medications Dose Ordered Sig/Antonia Route Start Time Stop Time Status Last Admin Dose Admin Ketorolac Tromethamine 30 mg ONCE ONCE IVP 01/04/21 14:15 01/04/21 14:16 DC 01/04/21 14:22 30 MG Promethazine HCl 25 mg ONCE ONCE IVP 01/04/21 14:15 01/04/21 14:16 DC 01/04/21 14:22 25 MG Vital Signs/I&O 01/04/21 13:01 Temp 36.6 Pulse 135 Resp 18 B/P (MAP) 114/82 (93) Pulse Ox 99 O2 Delivery Room Air Blood Pressure Mean: 93 Progress Progress Note #1: Time: 14:01 Progress Note She is a little tachycardic and I suspect she may still be dehydrated from her viral illness last week. She is not with a tender abdomen and no fever. No sep sis. No white count of significance. Plan to give her a liter of fluids and check urinalysis still. Progress Note #2: Time: 16:10 Progress Note Gave her a round of Phenergan and Toradol for her atypical migraine symptoms and this resolved her symptoms. She is feeling better and ready to go home. Tongan syncope score 0 points. Low risk; 1.9% risk of 30-day serious adverse event (, arrhythmia, ID. Plan to follow-up outpatient with primary care. Initial ECG Impression Date: Jan 04, 2021 Initial ECG Impression Time: 13:09 Initial ECG Rate: 129 Initial ECG Rhythm: S.Tach Initial ECG Intervals: Normal Initial ECG Impression: Normal, Nonspecific Changes Comment Sinus tachycardia without clinically relevant ST changes. Diagnostic Imaging Diagonstic Imaging: Xray Plain Films/CT/US/NM/MRI: chest Comments [facility]. [place], [place] NAME: LISETTE BILLS [facility] REC#: [id number] PT STATUS: REG ER : 1990 PHYSICIAN: FIORELLA MUNROE MD ADMIT DATE: 01/04/21/ER Signed Date of Exam:01/04/21 CHEST 1 VIEW, AP/PA ONLY CHEST 1 VIEW, AP/PA ONLY Indication: Syncope Comparison: 07/26/2020 Findings: No focal airspace disease in the visualized lungs. Please note that the posterior lower lobes are poorly evaluated by portable radiography. No pleural effusion or pneumothorax. Normal cardiomediastinal silhouette. Impression: 1. No acute cardiopulmonary process by portable radiography. Dictated by: Dictated on workstation # [id number] Dict: 01/04/218 Trans: 01/04/211417 [facility] [id number] Interpreted by: MANUEL KERN MD Electronically signed by: MANUEL KERN MD 01/04/21 1418 Reviewed: Reviewed by Me Departure Impression Primary Impression: Atypical migraine Additional Impression: Syncope and collapse Disposition: 01 HOME, SELF-CARE Condition: Stable Departure-Patient Inst. Decision time for Depature: 16:12 Referrals: NEWTON MONTEJO MD (PCP/Family) Primary Care Physician Patient Instructions: Syncope (Fainting) (DC), Migraines in Adults Add. Discharge Instructions: Your visual disturbances are related to the migraine. They should go away when your migraine goes away. You need to follow-up in the next 2 to 4 weeks with your primary care doctor to continue your evaluation for your syncope. Return to the nearest ER if you are having new or worsening symptoms. Get plenty of sleep today, Tylenol and ibuprofen as necessary for headache. All discharge instructions reviewed with patient and/or family. Voiced understanding. Work/School Note: Work Release Form Date Seen in the Emergency Department: Jan 04, 2021 Return to Work: Jan 05, 2021 Restrictions: No Restrictions Copy Copies To 1: NEWTON MONTEJO MD, TITUS J Jan 04, 2021 14:01
[2021-01-04] MEDS ORDERED: KETOROLAC 30 MG/ML VIAL IVP ONE (14:15)
[2021-01-04] MEDS ORDERED: PROMETHAZINE INJ 25 MG/ML (PHENERGAN) AMP IVP ONE (14:15)
--- NOTE | 2021-01-04 14:19 | Diagnostic Imaging Report ---
CHEST 1 VIEW, AP/PA ONLY Indication: Syncope Comparison: 07/26/2020 Findings: No focal airspace disease in the visualized lungs. Please note that the posterior lower lobes are poorly evaluated by portable radiography. No pleural effusion or pneumothorax. Normal cardiomediastinal silhouette. Impression: 1. No acute cardiopulmonary process by portable radiography. Dictated by: Dictated on workstation # [id number]
[2021-01-04 16:27] VITALS: BP 123/94
== END 2021-01-04 16:27 | disposition home or self-care (01) ==
LOC: EDUNIT# 12:54 → ER 12:56
DX: G43.909 Migraine, unspecified, not intractable, without status migrainosus (principal); R55 Syncope and collapse; J45.909 Unspecified asthma, uncomplicated; F17.210 Nicotine dependence, cigarettes, uncomplicated; Z88.0 Allergy status to penicillin; Z88.8 Allergy status to other drugs, medicaments and biological substances; Z82.49 Family history of ischemic heart disease and other diseases of the circulatory system; Z79.52 Long term (current) use of systemic steroids
CPT/HCPCS: 36415; 71045; 80048; 81000; 84484; 85025; 87088; 93005

== ENCOUNTER 2021-01-10 00:20 | Emergency (ER) | payer BC ==
[~2021-01-10] VITALS: Ht 167.7 cm; Wt 72.0 kg
[2021-01-10 01:11] LABS: BILIRUBIN,URINE NEGATIVE (NEGATIVE); CLARITY,URINE SL CLOUDY; COLOR,URINE YELLOW; GLUCOSE, URINE (UA) NEGATIVE (NEGATIVE); KETONES,URINE NEGATIVE (NEGATIVE); LEUKOCYTE ESTERASE ,URINE NEGATIVE (NEGATIVE); NITRITE,URINE NEGATIVE (NEGATIVE); PROTEIN,URINE NEGATIVE (NEGATIVE)
[2021-01-10 01:21] LABS: BACTERIA,URINE NEGATIVE /HPF; WBC,URINE 0-2 /HPF
[2021-01-10 01:29] LABS: AMPHETAMINE SCREEN, URINE NEGATIVE (NEGATIVE); BARBITURATE SCREEN URINE NEGATIVE (NEGATIVE); BENZODIAZEPINES SCREEN URINE POSITIVE (NEGATIVE); CANNABINOID SCREEN, URINE NEGATIVE (NEGATIVE); COCAINE SCREEN URINE NEGATIVE (NEGATIVE); METHADONE STAT NEGATIVE (NEGATIVE); METHAMPHETAMINE SCREEN URINE S NEGATIVE (NEGATIVE); OPIATE SCREEN URINE NEGATIVE (NEGATIVE); TRICYCLIC ANTIDEPRESSANTS SCRE NEGATIVE (NEGATIVE)
[2021-01-10 01:30] LABS: BASOPHILS % (AUTO) 0 % (0-10); EOSINOPHILS # (AUTO) 0.2 10^3/uL (0.0-0.3); EOSINOPHILS % (AUTO) 3 % (0-10); HEMATOCRIT 40 % (35-52); HEMOGLOBIN 13.2 g/dL (11.5-16.0); LYMPHOCYTES # (AUTO) 2.6 10^3/uL (1.0-4.0); LYMPHOCYTES % (AUTO) 41 % (12-44); MEAN CORPUSCULAR HEMOGLOBIN 29 pg (25-34); MEAN CORPUSCULAR HGB CONC 33 g/dL (32-36); MEAN CORPUSCULAR VOLUME 88 fL (80-99); MEAN PLATELET VOLUME 10.7 fL (9.0-12.2); MONOCYTES # (AUTO) 0.5 10^3/uL (0.0-1.0); MONOCYTES % (AUTO) 8 % (0-12); NEUTROPHILS % (AUTO) 48 % (42-75); PLATELET COUNT 229 10^3/uL (130-400); WHITE BLOOD COUNT 6.3 10^3/uL (4.3-11.0)
[2021-01-10 01:30] LABS: OXYCODONE STAT POSITIVE (NEGATIVE); PROPOXYPHENE STAT NEGATIVE (NEGATIVE)
[2021-01-10 01:40] LABS: ALBUMIN 3.9 GM/DL (3.2-4.5); CHLORIDE 103 MMOL/L (98-107); POTASSIUM 3.1 MMOL/L (3.6-5.0); SODIUM 139 MMOL/L (135-145)
[2021-01-10 01:41] LABS: CALCIUM 8.6 MG/DL (8.5-10.1)
[2021-01-10 01:42] LABS: GLUCOSE 112 MG/DL (70-105); TOTAL PROTEIN 6.7 GM/DL (6.4-8.2)
[2021-01-10 01:43] LABS: CARBON DIOXIDE 25 MMOL/L (21-32)
[2021-01-10 01:44] LABS: BILIRUBIN,TOTAL 0.2 MG/DL (0.1-1.0)
[2021-01-10 01:45] LABS: ALKALINE PHOSPHATASE 59 U/L (40-136)
[2021-01-10 01:46] LABS: CREATININE SERUM 0.72 MG/DL (0.60-1.30); GFR ESTIMATED > 60
[2021-01-10 01:47] LABS: BUN/CREATININE RATIO 13
--- NOTE | 2021-01-10 01:48 | ED General ---
General Chief Complaint: General Problems/Pain Stated Complaint: CONFUSION;DISORIENTED Nursing Triage Note: TO ED VIA POV AND AMBULATORY TO ROOM 5 WITH C/O "FEELING OUT OF IT" AND "CONFUSION". STATES SHE HAD NEW ONSET SEIZURE MONDAY. Nursing Sepsis Screen: No Definite Risk Source of Information: Patient, Old Records History of Present Illness Date Seen by Provider: Jan 10, 2021 Time Seen by Provider: 00:46 Initial Comments PT ARRIVES VIA POV STATES SHE "FEELS OUT OF IT" AND "FEEL DISORIENTED" "DON'T FEEL LIKE MYSELF" FOR OVER A WEEK SYMPTOMS NO DIFFERENT TONIGHT IN ANY WAY STATES "MY THOUGHT PROCESS IS DELAYED" STATES "IT TOOK ME A MINUTE TO RE-ORIENT MYSELF WHERE I WAS AT WHILE I WAS SITTING IN THE WAITING ROOM" STATES SHE HAS HAD DECREASED APPETITE FOR THE LAST COUPLE OF WEEKS STATES SHE "DIDN'T SLEEP FOR 72 HOURS" THIS PAST WEEK--STATES NORMALLY SHE WANTS TO SLEEP ALL THE TIME PT DENIES ANY NEW MEDICATIONS OR CHANGES IN MEDICATIONS PT STATES SHE TAKES XANAX DAILY--STATES IT IS PRESCRIBED THREE TIMES A DAY BUT SHE HAS ONLY BEEN TAKING IT ONCE A DAY. STATES SHE HAS BEEN ON XANAX DAILY SINCE SHE WAS 14 YEARS OLD. STATES SHE TAKES SEROQUEL DAILY BUT HAS NOT TAKEN ANY SINCE YESTERDAY. STATES SHE HAS BEEN ON IT SINCE AT LEAST 2016. STATES SHE TAKES OXYCODONE DAILY FOR CHRONIC BACK PAIN--STATES SHE TOOK ONE AT [facility] TODAY--STATES IT IS PRESCRIBED BY DR. MONTEJO AND HAS BEEN ON IT OFF AND ON FOR YEARS, BUT DAILY SINCE AUGUST 2020. PT REPEATEDLY DENIES TAKING ANY OTHER MEDICATIONS OR BEING PRESCRIBED ANY OTHER MEDICATIONS ON REVIEW OF MED RECONCILIATION: OXYCODONE IS NOT LISTED AT ALL PT FILLED RX FOR BUSPIRONE 5 MG BID #60 ON 12/24/20--HAS FILLED RX'S FOR #60 ON 09/22/20, 10/19/21 AND 12/24/20 PT FILLED RX FOR CYCLOBENZAPRINE 10 MG TID #90 ON 11/19/20 AND MONTHLY SINCE 02/06/21 PT FILLED RX FOR SEROQUEL 50 MG DAILY #30 ON 08/26/20, 09/22/20 AND 10/19/21 PT FILLED RX FOR XANAX 1 MG TID # 90 EVERY FROM 01/31/20 TO 09/22/20 PT FILLED RX FOR LATUDA 40 MG #30 ON 03/31/20 AND FOR 60 MG TABS #30 ON 04/29/20 PT FILLED RX FOR DULOXETINE 30 MG #30 ON 03/26/20 AND FOR 60 MG TABS #30 ON 04/20/20 PT FILLED RX FOR FLUOXETINE 20 MG ON 02/06/20 PT FILLED RX FOR REXULTI ON 02/05/20 PT STATES SHE MISSED HER APPOINTMENT WITH DR. GRIJALVA ON 12/28/20, HAS IT RESCHEDULED FOR 01/18/21 PT HAS BEEN GOING TO [facility] BUT HAS NOT BEEN THERE FOR SEVERAL MONTHS PT HAS HAD A MULTITUDE OF VISITS HERE--MOSTLY FOR VARIOUS PAIN COMPLAINTS. ALSO LONG HISTORY OF PSEUDOSEIZURES AND ALSO BENZODIAZEPINE WITHDRAWL SEIZURES. PT WITH EXTENSIVE PSYCH ISSUES, BENZODIAZEPINE ABUSE. PT SEEN HERE 01/04/21 FOR ALLEGED MIGRAINE WITH SYNCOPAL EPISODE WHILE SHE WAS AT A GAS STATION--PT STATES SHE DOES NOT RECALL THE EVENT. WAS DX WITH ATYPICAL MIGRAINE AND SYMPTOMS RESOLVED WITH FLUIDS, TORADOL AND PHENERGAN. NO INJURY FROM THE INCIDENT AND NO RX'S WERE GIVEN. THERE WAS NOT WITNESSED SEIZURE AND NO POST ICTAL SYMPTOMS WITH THAT INCIDENT. PT STATES NO RECENT ILLNESS, HOWEVER, SHE HAD REPORTED AT THE VISIT ON 01/04/21, THAT THE WEEK BEFORE SHE HAD BEEN HAVING NAUSEA/VOMITING/DIARRHEA AND FATIGUE PCP: DR. MONTEJO [facility]: [facility] Allergies and Home Medications Allergies Coded Allergies: Penicillins (Unverified Allergy, Mild, PT ABLE TO TAKE ANCEF, 03/17/20) diclofenac (Unverified Allergy, Unknown, 03/17/20) divalproex sodium (Verified Allergy, Unknown, 03/17/20) Home Medications Prednisone 20 Mg Tab, 60 MG PO DAILY 3 tabs(60mg)daily x 3 days 2 tabs(40mg)daily x 3 days 1 tabs(20mg)daily x 3 days Prescribed by: FIORELLA MUNROE on 09/19/201921 Patient Home Medication List Home Medication List Reviewed: Yes Review of Systems Review of Systems Constitutional: other (STATES "I HAVE FEVERS UP TO 101.5 ALL THE TIME" --CLAIMS ONGOING FOR THE PAST YEAR OR TWO. ) EENTM: other ("VISION IS A LITTLE OFF SOMETIMES" ) Respiratory: no symptoms reported; No cough, No short of breath Cardiovascular: no symptoms reported; No chest pain Gastrointestinal: see HPI; No abdominal pain; loss of appetite; No nausea, No vomiting Genitourinary: no symptoms reported Musculoskeletal: back pain (CHRONIC BACK PAIN ) Skin: no symptoms reported Psychiatric/Neurological: See HPI; Denies Headache, Denies Numbness, Denies Paresthesia, Denies Seizure, Denies Tingling, Denies Tremors, Denies Weakness Hematologic/Lymphatic: No Symptoms Reported Immunological/Allergic: no symptoms reported Past Aqvenph-Okbwxo-Xzbwxb Hx Past Med/Social Hx: Reviewed and Corrections made Patient Social History Alcohol Use: Denies Use Drug of Choice: BENZODIAZEPINE ABUSE Smoking Status: Current Everyday Smoker (1 PPD) Type Used: Cigarettes 2nd Hand Smoke Exposure: Yes Recent Infectious Disease Expo: No Recent Hopitalizations: No Substance type: Misuse of prescript meds (BENZODIAZEPINES) Immunizations Up To Date Tetanus Booster (TDap): Less than 5yrs PED Vaccines UTD: Yes Date of Influenza Vaccine: Aug 30, 2017 Seasonal Allergies Seasonal Allergies: No Past Medical History Surgeries: Yes (LAPAROTOMY; HYST ; LSO) Abdominal, Adenoidectomy, Appendectomy, Hysterectomy, Oophorectomy, Tonsillectomy Respiratory: Yes Asthma Cardiac: Yes (Hx. 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 Sexually Transmitted Disease: No HIV/AIDS: No Genitourinary: No Gastrointestinal: No Musculoskeletal: Yes (CHRONIC OPIATE USE; MULITPLE VARIOUS CHRONIC PAIN COMPLAINTS) Degenerate Disk Disease, Arthritis, Back Injury, Scoliosis, Chronic Back Pain Endocrine: No HEENT: Yes (CHRONIC DENTAL PAIN/EXTENSIVE DENTAL DECAY) Cancer: No Psychosocial: Yes (EXTENSIVE PSYCH HISTORY;BENZODIAZEPINE ABUSE) Anxiety, PTSD, Bipolar, Depression Integumentary: No Blood Disorders: No Adverse Reaction/Blood Tranf: No Family Medical History Family history: Hypertension (mother, MGM, and PGM) Heart disease (mother and father) History of - anemia (family Hx of blood transfusions) Infertile Kidney disease (MGM) No Pertinent Family Hx Physical Exam Vital Signs Vital Signs - First Documented 01/10/21 01/10/21 00:45 02:45 Temp 36.5 Pulse 114 Resp 18 B/P (MAP) 139/88 (105) Pulse Ox 98 O2 Delivery Room Air Capillary Refill : Less Than 3 Seconds Height, Weight, BMI Height: 5'6.00" Weight: 130lbs. 0.0oz. 58.760953ea; 25.00 BMI Method:Stated General Appearance: No Apparent Distress, WD/WN, Other (DOES NOT APPEAR ILL OR TO BE IN ANY DISCOMFORT OR DISTRESS. ) HEENT: PERRL/EOMI, Other (POOR DENTITION) Neck: Normal Inspection Respiratory: Normal Breath Sounds, No Accessory Muscle Use, No Respiratory Distress Cardiovascular: Regular Rate, Rhythm, No Edema, No Murmur Gastrointestinal: Soft Extremity: Normal Inspection Neurologic/Psychiatric: Alert, Oriented x3, No Motor/Sensory Deficits, Normal Mood/Affect, powder guard II-XII Norm as Tested; No Abnormal Cerebellar Tests Skin: Normal Color, Warm/Dry, Tattoos/Piercings (TATTOOS) Progress/Results/Core Measures Suspected Sepsis Recent Fever Within 48 Hours: No Infection Criteria Present: None New/Unexplained Altered Menta: No Sepsis Screen: No Definite Risk SIRS Temperature: Pulse: 114 Respiratory Rate: 18 Laboratory Tests 01/10/21 01:23: White Blood Count 6.3 Blood Pressure 139 /88 Mean: 105 Laboratory Tests 01/10/21 01:23: Creatinine 0.72, Platelet Count 229, Total Bilirubin 0.2 Results/Orders Lab Results Laboratory Tests Test 01/10/21 00:55 01/10/21 01:23 Range/Units Urine Color YELLOW Urine Clarity SL CLOUDY Urine pH 6.0 5-9 Urine Specific [place] 1.015 L 1.016-1.022 Urine Protein NEGATIVE NEGATIVE Urine Glucose (UA) NEGATIVE NEGATIVE Urine Ketones NEGATIVE NEGATIVE Urine Nitrite NEGATIVE NEGATIVE Urine Bilirubin NEGATIVE NEGATIVE Urine Urobilinogen 0.2 < = 1.0 MG/DL Urine Leukocyte Esterase NEGATIVE NEGATIVE Urine RBC (Auto) NEGATIVE NEGATIVE Urine RBC NONE /HPF Urine WBC 0-2 /HPF Urine Squamous Epithelial Cells 10-25 H /HPF Urine Crystals NONE /LPF Urine Bacteria NEGATIVE /HPF Urine Casts NONE /LPF Urine Mucus NEGATIVE /LPF Urine Culture Indicated NO Urine Opiates Screen NEGATIVE NEGATIVE Urine Oxycodone Screen POSITIVE H NEGATIVE Urine Methadone Screen NEGATIVE NEGATIVE Urine Propoxyphene Screen NEGATIVE NEGATIVE Urine Barbiturates Screen NEGATIVE NEGATIVE Ur Tricyclic Antidepressants Screen NEGATIVE NEGATIVE Urine Phencyclidine Screen NEGATIVE NEGATIVE Urine Amphetamines Screen NEGATIVE NEGATIVE Urine Methamphetamines Screen NEGATIVE NEGATIVE Urine Benzodiazepines Screen POSITIVE H NEGATIVE Urine Cocaine Screen NEGATIVE NEGATIVE Urine Cannabinoids Screen NEGATIVE NEGATIVE White Blood Count 6.3 4.3-11.0 10^3/uL Red Blood Count 4.50 3.80-5.11 10^6/uL Hemoglobin 13.2 11.5-16.0 g/dL Hematocrit 40 35-52 % Mean Corpuscular Volume 88 80-99 fL Mean Corpuscular Hemoglobin 29 25-34 pg Mean Corpuscular Hemoglobin Concent 33 32-36 g/dL Red Cell Distribution Width 11.8 10.0-14.5 % Platelet Count 229 130-400 10^3/uL Mean Platelet Volume 10.7 9.0-12.2 fL Immature Granulocyte % (Auto) 0 % Neutrophils (%) (Auto) 48 42-75 % Lymphocytes (%) (Auto) 41 12-44 % Monocytes (%) (Auto) 8 0-12 % Eosinophils (%) (Auto) 3 0-10 % Basophils (%) (Auto) 0 0-10 % Neutrophils # (Auto) 3.0 1.8-7.8 10^3/uL Lymphocytes # (Auto) 2.6 1.0-4.0 10^3/uL Monocytes # (Auto) 0.5 0.0-1.0 10^3/uL Eosinophils # (Auto) 0.2 0.0-0.3 10^3/uL Basophils # (Auto) 0.0 0.0-0.1 10^3/uL Immature Granulocyte # (Auto) 0.0 0.0-0.1 10^3/uL Sodium Level 139 135-145 MMOL/L Potassium Level 3.1 L 3.6-5.0 MMOL/L Chloride Level 103 98-107 MMOL/L Carbon Dioxide Level 25 21-32 MMOL/L Anion Gap 11 5-14 MMOL/L Blood Urea Nitrogen 9 7-18 MG/DL Creatinine 0.72 0.60-1.30 MG/DL Estimat Glomerular Filtration Rate > 60 BUN/Creatinine Ratio 13 Glucose Level 112 H 70-105 MG/DL Calcium Level 8.6 8.5-10.1 MG/DL Corrected Calcium 8.7 8.5-10.1 MG/DL Magnesium Level 1.7 1.6-2.4 MG/DL Total Bilirubin 0.2 0.1-1.0 MG/DL Aspartate Amino Transf (AST/SGOT) 13 5-34 U/L Alanine Aminotransferase (ALT/SGPT) 12 0-55 U/L Alkaline Phosphatase 59 40-136 U/L Total Protein 6.7 6.4-8.2 GM/DL Albumin 3.9 3.2-4.5 GM/DL TSH Butts Testing 1.49 0.35-4.94 UIU/ML My Orders Orders - MIRANDA LOCO DO Urine Bedside (01/10/21 00:59) Drug Screen Stat (Urine) (01/10/21 00:59) Ua Culture If Indicated (01/10/21 00:59) Ct Head Wo-R/O Stroke (01/10/21 01:14) Cbc With Automated Diff (01/10/21 01:14) Comprehensive Metabolic Panel (01/10/21 01:14) Magnesium (01/10/21 01:14) Thyroid Analyzer (01/10/21 01:14) Vital Signs/I&O 01/10/21 01/10/21 00:45 02:45 Temp 36.5 36.5 Pulse 114 100 Resp 18 17 B/P (MAP) 139/88 (105) 129/85 (105) Pulse Ox 98 O2 Delivery Room Air Room Air Capillary Refill : Less Than 3 Seconds Blood Pressure Mean: 105 Progress Note : Progress Note UNEVENTFUL ER STAY DISCUSSED WITH PT THAT SHE IS ON MULTIPLE SEDATING MEDICATIONS AND COULD POSSIBLY BE CONTRIBUTING TO HER SENSE OF "FEELING OUT OF IT" ADVISED HER TO FOLLOW UP WITH DR. MONTEJO NEXT WEEK SCHEDULED AND DISCUSS THIS WITH HIM AT THAT VISIT Diagnostic Imaging Comments CT HEAD--NO ACUTE PROCESS, PER [facility] VIA FAX AT 0203 Reviewed: Reviewed by Me Departure Impression Primary Impression: General medical exam Additional Impressions: mild hypokalemia POSSIBLE EFFECTS OF POLYPHARMACY Disposition: HOME, SELF-CARE Condition: Stable Departure-Patient Inst. Referrals: NEWTON MONTEJO MD (PCP/Family) Primary Care Physician Patient Instructions: Hypokalemia (DC), Medication Safety, Adult Add. Discharge Instructions: INCREASE YOUR FLUID INTAKE, AND POTASSIUM INTAKE FOLLOW UP WITH DR. MONTEJO NEXT WEEK SCHEDULED All discharge instructions reviewed with patient and/or family. Voiced understanding. MIRANDA LOCO DO Jan 10, 2021 01:48
[2021-01-10 01:49] LABS: ALANINE AMINOTRANSFERASE 12 U/L (0-55); MAGNESIUM 1.7 MG/DL (1.6-2.4)
[2021-01-10 02:09] LABS: TSH (THYROID ANALYZER) 1.49 UIU/ML (0.35-4.94)
[2021-01-10 02:45] VITALS: BP 129/85
--- NOTE | 2021-01-10 06:24 | Diagnostic Imaging Report ---
EXAMINATION: CT head without contrast. TECHNIQUE: Multiple contiguous axial images were obtained through the brain without the use of intravenous contrast. All CT scans use one or more of the following dose optimizing techniques: automated exposure control, MA and/or KvP adjustment based on a patient size and exam type, or iterative reconstruction. HISTORY: Confusion. Seizure. Neurologic deficit. COMPARISON: 02/18/2020. FINDINGS: No large acute territorial ischemia, mass, or hemorrhage. No midline shift or mass effect. The ventricles, cortical sulci, and basilar cisterns are patent and unremarkable. The orbits are normal. Paranasal sinuses are normal. Mastoid air cells are clear. No soft tissue abnormality is seen. No osseus lesions or fractures are seen. IMPRESSION: 1. No large acute territorial ischemia, mass, or hemorrhage. Agree with overnight report. Dictated by: Dictated on workstation # [id number]
== END 2021-01-10 02:45 | disposition home or self-care (01) ==
LOC: EDUNIT# 00:20 → ER 00:22
DX: E87.6 Hypokalemia (principal); J45.909 Unspecified asthma, uncomplicated; F17.210 Nicotine dependence, cigarettes, uncomplicated; Z88.0 Allergy status to penicillin; Z88.8 Allergy status to other drugs, medicaments and biological substances; Z88.6 Allergy status to analgesic agent; Z79.52 Long term (current) use of systemic steroids; Z82.49 Family history of ischemic heart disease and other diseases of the circulatory system
CPT/HCPCS: 36415; 70450; 80053; 80306; 81000; 83735; 84443; 85025

== ENCOUNTER 2021-02-05 22:28 | Emergency (ER) | payer BC ==
[~2021-02-05] VITALS: Ht 167 cm; Wt 68.0 kg
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
[2021-02-06 00:06] VITALS: BP 140/71
--- NOTE | 2021-02-06 08:11 | Diagnostic Imaging Report ---
INDICATION: Fell on left wrist, pain FINDINGS: 3 views of the left wrist demonstrates normal ossification. No fracture or dislocation is present. IMPRESSION: Normal left wrist. Dictated by: Dictated on workstation # [id number]
== END 2021-02-06 00:07 | disposition home or self-care (01) ==
LOC: EDUNIT# 22:28 → ER 22:29
DX: S40.012A Contusion of left shoulder, initial encounter (principal); S60.212A Contusion of left wrist, initial encounter; S50.02XA Contusion of left elbow, initial encounter; I10 Essential (primary) hypertension; J45.909 Unspecified asthma, uncomplicated; Z88.0 Allergy status to penicillin; Z88.6 Allergy status to analgesic agent; Z88.8 Allergy status to other drugs, medicaments and biological substances; Z77.22 Contact with and (suspected) exposure to environmental tobacco smoke (acute) (chronic); Z82.49 Family history of ischemic heart disease and other diseases of the circulatory system; Z79.52 Long term (current) use of systemic steroids; V00.138A Other skateboard accident, initial encounter
CPT/HCPCS: 73110

== ENCOUNTER 2021-03-16 21:10 | Emergency (ER) | payer OTHER, BC ==
[~2021-03-16] VITALS: Ht 167.7 cm; Wt 70.3 kg
[2021-03-16] MEDS ORDERED: methylPREDNISolone 125 MG (Solu-MEDROL) VIAL ONE (21:15)
[2021-03-16] MEDS ORDERED: diphenhydrAMINE 50 MG/ML INJ (BENADRYL) ONE (21:15)
[2021-03-16] MEDS ORDERED: FAMOTIDINE 20MG/2ML IV (PEPCID) ONE (21:15)
[2021-03-16] MEDS ORDERED: diphenhydrAMINE 50 MG/ML INJ (BENADRYL) IV STA (21:21)
[2021-03-16] MEDS ORDERED: FAMOTIDINE 20MG/2ML IV (PEPCID) IV STA (21:21)
[2021-03-16] MEDS ORDERED: methylPREDNISolone 125 MG (Solu-MEDROL) VIAL IVP ONE (21:30)
--- NOTE | 2021-03-16 21:32 | ED General ---
General Chief Complaint: Allergic Reaction Stated Complaint: ALLERGIC REACTION TO MEDS History of Present Illness Date Seen by Provider: March 16, 2021 Time Seen by Provider: 21:15 Initial Comments 30-year-old female presents for a possible allergic reaction after being given Levaquin. She had suturing to her right earlobe today and was placed on the medication. She has had an adverse reaction similar to this in the past after taking Levaquin. She has no rash, visible swelling to her tongue or throat but feels as though she is having difficulty swallowing and breathing. Her SaO2 is 100% on room air, her voice is hoarse. She has taken no medication prior to arrival. She does not have an EpiPen. Timing/Duration: 1/2 Hour Severity: Mild Associated Systoms: No Chest Pain, No Cough, No Malaise, No Nausea/Vomiting, No Rash; Shortness of Air Allergies and Home Medications Allergies Coded Allergies: Penicillins (Unverified Allergy, Mild, PT ABLE TO TAKE ANCEF, 03/17/20) diclofenac (Unverified Allergy, Unknown, 03/17/20) divalproex sodium (Verified Allergy, Unknown, 03/17/20) levofloxacin (Verified Adverse Reaction, Intermediate, 03/16/21) STATES MAKES HER FEEL LIKE HER THROAT IS CLOSING, MAKES IT HARD TO SPEAK Home Medications Prednisone 20 Mg Tab, 60 MG PO DAILY 3 tabs(60mg)daily x 3 days 2 tabs(40mg)daily x 3 days 1 tabs(20mg)daily x 3 days Prescribed by: FIORELLA MUNROE on 09/19/201921 Patient Home Medication List Home Medication List Reviewed: Yes Review of Systems Review of Systems Constitutional: no symptoms reported, see HPI Respiratory: see HPI, short of breath Skin: no symptoms reported, see HPI; No rash All Other Systems Reviewed Negative Unless Noted: Yes Past Kmcdwli-Odafyg-Xdvkga Hx Past Med/Social Hx: Reviewed Nursing Past Med/Soc Hx Patient Social History Drug of Choice: BENZODIAZEPINE ABUSE Type Used: Cigarettes 2nd Hand Smoke Exposure: Yes Recent Hopitalizations: No Immunizations Up To Date Tetanus Booster (TDap): Less than 5yrs PED Vaccines UTD: Yes Date of Influenza Vaccine: Aug 30, 2017 Seasonal Allergies Seasonal Allergies: No Past Medical History Surgeries: Yes (LAPAROTOMY; HYST ; LSO) Abdominal, Adenoidectomy, Appendectomy, Hysterectomy, Oophorectomy, Tonsillectomy Respiratory: Yes Asthma Cardiac: Yes (Hx. 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 Sexually Transmitted Disease: No HIV/AIDS: No Genitourinary: No Gastrointestinal: No Musculoskeletal: Yes (CHRONIC OPIATE USE; MULITPLE VARIOUS CHRONIC PAIN COMPLAINTS) Degenerate Disk Disease, Arthritis, Back Injury, Scoliosis, Chronic Back Pain Endocrine: No HEENT: Yes (CHRONIC DENTAL PAIN/EXTENSIVE DENTAL DECAY) Cancer: No Psychosocial: Yes (EXTENSIVE PSYCH HISTORY;BENZODIAZEPINE ABUSE) Anxiety, PTSD, Bipolar, Depression Integumentary: No Blood Disorders: No Adverse Reaction/Blood Tranf: No Family Medical History Family history: Hypertension (mother, MGM, and PGM) Heart disease (mother and father) History of - anemia (family Hx of blood transfusions) Infertile Kidney disease (MGM) No Pertinent Family Hx Physical Exam Vital Signs Vital Signs - First Documented 03/16/21 21:15 Temp 36.5 Pulse 116 Resp 20 B/P (MAP) 126/94 (105) Pulse Ox 97 O2 Delivery Room Air Capillary Refill : Height, Weight, BMI Height: 5'6.00" Weight: 130lbs. 0.0oz. 58.192410ht; 24.00 BMI Method:Stated General Appearance: WD/WN, Anxious, Mild Distress Eyes: Bilateral Eye Normal Inspection, Bilateral Eye PERRL, Bilateral Eye EOMI HEENT: PERRL/EOMI, TMs Normal, Normal ENT Inspection, Pharynx Normal Neck: Full Range of Motion, Normal Inspection, Non Tender, Supple Respiratory: Chest Non Tender, Lungs Clear, Normal Breath Sounds; No Stridor, No Wheezing Cardiovascular: Regular Rate, Rhythm, No Edema, No Murmur, Normal Peripheral Pulses Gastrointestinal: Normal Bowel Sounds, Non Tender, Soft Neurologic/Psychiatric: Alert, Oriented x3, No Motor/Sensory Deficits, Normal Mood/Affect Skin: Normal Color, Warm/Dry; No Rash Progress/Results/Core Measures Suspected Sepsis SIRS Temperature: Pulse: Respiratory Rate: Blood Pressure / Mean: Results/Orders My Orders Orders - SHAYLA SUTTON Diphenhydramine Injection (Benadryl Inje (5/4/21 21:21) Famotidine Injection (Pepcid Injection) (03/16/21 21:21) Methylprednisolone Sod Succ (Solu-Medrol (03/16/21 21:30) Diphenhydramine Injection (Benadryl Inje (03/16/21 21:15) Methylprednisolone Sod Succ (Solu-Medrol (03/16/21 21:15) Famotidine Injection (Pepcid Injection) (03/16/21 21:15) Rx-Cephalexin Capsule (Rx-Keflex Capsule (03/16/21 21:57) Medications Given in ED Current Medications Medications Dose Ordered Sig/Antonia Route Start Time Stop Time Status Last Admin Dose Admin Methylprednisolone Sodium Succinate 125 mg ONCE ONCE IVP 03/16/21 21:30 03/16/21 21:31 DC 03/16/21 21:26 125 MG Vital Signs/I&O 03/16/21 21:15 Temp 36.5 Pulse 116 Resp 20 B/P (MAP) 126/94 (105) Pulse Ox 97 O2 Delivery Room Air Capillary Refill : Progress Note : Time: 21:15 Progress Note Patient is alert and oriented, vital signs are stable, will give Benadryl 50 mg IV, Solu-Medrol 125 mg IV and Pepcid 20 mg IV. we will continue to monitor patient. 2200 patient has had no further complaints, lips and tongue are not swelling. She is breathing without difficulty no wheezing noted. 2230 patient resting with eyes closed, vital signs have been stable, SaO2 99% on room air. Easily arousable. Patient has someone to drive her home. Discharge instructions and return precautions reviewed. Departure Impression Primary Impression: Allergic reaction Qualified Codes: T78.40XA - Allergy, unspecified, initial encounter Disposition: HOME, SELF-CARE Condition: Improved Departure-Patient Inst. Decision time for Depature: 20:35 Referrals: NEWTON MONTEJO MD (PCP/Family) Primary Care Physician Patient Instructions: Anaphylaxis (DC) Add. Discharge Instructions: Do you not take any further Levaquin. Continue to take Benadryl 25 mg every 8 hours and Pepcid 20 mg twice daily for the next 3 to 4 days. Take Keflex as prescribed. Return to the emergency department for new, urgent healthcare needs. All discharge instructions reviewed with patient and/or family. Voiced understanding. Scripts Cephalexin (Cephalexin) 500 Mg Tablet 500 MG PO TID, #15 TAB 0 Refills Prov: SHAYLA SUTTON 03/16/21 SHAYLA SUTTON March 16, 2021 21:32
[2021-03-16] MEDS ORDERED: RX-CEPHALEXIN (KEFLEX) 250 MG CAP PPK#4 PO STA (21:57)
[2021-03-16] MEDS ORDERED: CEPH500T PO (22:36)
[2021-03-16 22:43] VITALS: BP 115/71
== END 2021-03-16 22:44 | disposition home or self-care (01) ==
LOC: EDUNIT# 21:10 → ER 21:12
DX: R13.10 Dysphagia, unspecified (principal); T36.8X5A Adverse effect of other systemic antibiotics, initial encounter; J45.909 Unspecified asthma, uncomplicated; Z88.0 Allergy status to penicillin; Z88.6 Allergy status to analgesic agent; Z88.1 Allergy status to other antibiotic agents; Z88.8 Allergy status to other drugs, medicaments and biological substances; Z77.22 Contact with and (suspected) exposure to environmental tobacco smoke (acute) (chronic); Z79.52 Long term (current) use of systemic steroids

== ENCOUNTER 2021-03-22 11:08 | Emergency (ER) | payer BC ==
[~2021-03-22] VITALS: Ht 167 cm; Wt 150.0 kg
[~2021-03-22 11:08] MED LIST changes: +CEPH500T PO
[2021-03-22] MEDS ORDERED: NS IV 1000 ML 1,000 ML IV SCH ×2 (11:30→12:30)
[2021-03-22 11:38] LABS: BASOPHILS % (AUTO) 0 % (0-10); EOSINOPHILS % (AUTO) 0 % (0-10); HEMATOCRIT 52 % (35-52); HEMOGLOBIN 15.6 g/dL (11.5-16.0); LYMPHOCYTES # (AUTO) 4.4 10^3/uL (1.0-4.0); LYMPHOCYTES % (AUTO) 31 % (12-44); MEAN CORPUSCULAR HEMOGLOBIN 29 pg (25-34); MEAN CORPUSCULAR HGB CONC 30 g/dL (32-36); MEAN CORPUSCULAR VOLUME 97 fL (80-99); MEAN PLATELET VOLUME 10.2 fL (9.0-12.2); MONOCYTES % (AUTO) 7 % (0-12); NEUTROPHILS # (AUTO) 8.5 10^3/uL (1.8-7.8); NEUTROPHILS % (AUTO) 61 % (42-75); PLATELET COUNT 383 10^3/uL (130-400)
[2021-03-22 11:44] LABS: CHLORIDE 100 MMOL/L (98-107); POTASSIUM 3.5 MMOL/L (3.6-5.0); SODIUM 141 MMOL/L (135-145)
[2021-03-22 11:45] LABS: CALCIUM 10.6 MG/DL (8.5-10.1)
[2021-03-22 11:46] LABS: GLUCOSE 147 MG/DL (70-105)
[2021-03-22 11:47] LABS: CARBON DIOXIDE 10 MMOL/L (21-32)
[2021-03-22 11:50] LABS: CREATININE SERUM 0.88 MG/DL (0.60-1.30); GFR ESTIMATED > 60
[2021-03-22 11:51] LABS: BUN/CREATININE RATIO 18
[2021-03-22 12:04] LABS: ACETAMINOPHEN < 10 UG/ML (10-30); SALICYLATE < 5.0 MG/DL (5.0-20.0)
--- NOTE | 2021-03-22 12:27 | ED General ---
General Chief Complaint: Neurological Problems Stated Complaint: SEIZURE Nursing Triage Note: PT ARRIVED PER EMS, PT HAD SEIZURE AT WORK, PT IS AWAKE, ABLE TO TALK BUT IS CONFUSED. PT PUPILS 4MM SL SLUGGISH, PT HAS HX OF SEIZURES BUT TAKES NOT MEDS FOR THEM. PT HAS SL #20 IN L AC BY EMS. PEOPLE AT WORK STATES HAD SEIZURE IN CHAIR AND LOWERED TO FLOOR BY CO-WORKERS Nursing Sepsis Screen: No Definite Risk Source of Information: Patient, EMS Exam Limitations: Other (altered mental status, improving) (BELLE HANLEY MED STUDENT) History of Present Illness Date Seen by Provider: March 22, 2021 Time Seen by Provider: 11:50 Initial Comments 30 y/o female with PMHx of seizures, pseudoseizure, benzodiazapene abuse and SVT presents after episode of altered mental status occurring this morning. 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 On site EMS reports HR 160, Systolic 117 and 02 well saturated, patient was staring blankly and not responding to commands or questions. Patient began responding confusedly by arrival to the ED. Currently in room, patient is talking but confused, able to correctly answer her name and location but incorrectly states date and is incoherent when asked about the president. She denies any current CP, abdominal pain, leg pain, or any other cur rent pain. She also denies SOB, GI or sx. Patient is clearly confused, denies hx of seizures or any medical problems, cannot identify who perscribed her Oxycodone or why. States she does not remember anything from today. (BELLE HANLEY MED STUDENT) Allergies and Home Medications Allergies Coded Allergies: Penicillins (Unverified Allergy, Mild, PT ABLE TO TAKE ANCEF, 03/17/20) diclofenac (Unverified Allergy, Unknown, 03/17/20) divalproex sodium (Verified Allergy, Unknown, 03/17/20) levofloxacin (Verified Adverse Reaction, Intermediate, 03/16/21) STATES MAKES HER FEEL LIKE HER THROAT IS CLOSING, MAKES IT HARD TO SPEAK Home Medications Cephalexin 500 Mg Tablet, 500 MG PO TID Prescribed by: SHAYLA SUTTON on 03/16/212235 Prednisone 20 Mg Tab, 60 MG PO DAILY 3 tabs(60mg)daily x 3 days 2 tabs(40mg)daily x 3 days 1 tabs(20mg)daily x 3 days Prescribed by: FIORELLA MUNROE on 09/19/201921 Patient Home Medication List Home Medication List Reviewed: Yes (BAILEE CHILDS MD) Review of Systems Review of Systems Constitutional: No chills, No fever EENTM: dental problems (chronic); No ear pain, No vision loss, No throat pain Respiratory: No cough, No short of breath Cardiovascular: No chest pain; other (tachycardia) Gastrointestinal: No abdominal pain, No jaundice Genitourinary: No dysuria, No frequency, No hematuria Musculoskeletal: No back pain, No joint pain Skin: No dryness, No rash Psychiatric/Neurological: Denies Tremors; Other (moderate confusion) Hematologic/Lymphatic: Denies Easy Bruising, Denies Swollen Glands (BELLE HANLEY STUDENT) Past [place]-Kxhzbm-Ubdber Hx Patient Social History Alcohol Use: Occasionally Uses Number of Drinks Today: 0 Drug of Choice: BENZODIAZEPINE ABUSE Smoking Status: Current Everyday Smoker Type Used: Cigarettes 2nd Hand Smoke Exposure: Yes Recent Infectious Disease Expo: No Recent Hopitalizations: No (BELLE HANLEY STUDENT) Immunizations Up To Date Tetanus Booster (TDap): Less than 5yrs PED Vaccines UTD: Yes Date of Influenza Vaccine: Aug 30, 2017 (BELLE HANLEY STUDENT) Seasonal Allergies Seasonal Allergies: No (BELLE HANLEY) Past Medical History Surgeries: Yes (LAPAROTOMY; HYST ; LSO) Abdominal, Adenoidectomy, Appendectomy, Hysterectomy, Oophorectomy, Tonsillectomy Respiratory: Yes Asthma Cardiac: Yes (Hx. 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 Sexually Transmitted Disease: No HIV/AIDS: No Genitourinary: No Gastrointestinal: No Musculoskeletal: Yes (CHRONIC OPIATE USE; MULITPLE VARIOUS CHRONIC PAIN COMPLAINTS) Degenerate Disk Disease, Arthritis, Back Injury, Scoliosis, Chronic Back Pain Endocrine: No HEENT: Yes (CHRONIC DENTAL PAIN/EXTENSIVE DENTAL DECAY) Cancer: No Psychosocial: Yes (EXTENSIVE PSYCH HISTORY;BENZODIAZEPINE ABUSE) Anxiety, PTSD, Bipolar, Depression Integumentary: No Blood Disorders: No Adverse Reaction/Blood Tranf: No (BELLE HANLEY MED STUDENT) Family Medical History Family history: Hypertension (mother, MGM, and PGM) Heart disease (mother and father) History of - anemia (family Hx of blood transfusions) Infertile Kidney disease (MGM) No Pertinent Family Hx (BELLE HANLEY STUDENT) Physical Exam Vital Signs Vital Signs - First Documented 03/22/21 11:12 Temp 36.5 Pulse 148 Resp 20 B/P (MAP) 143/85 (104) Pulse Ox 97 (BAILEE CHILDS MD) Vital Signs Capillary Refill : Less Than 3 Seconds (BELLE HANLEY STUDENT) Height, Weight, BMI Height: 5'6.00" Weight: 130lbs. 0.0oz. 58.019048qu; 53.00 BMI Method:Stated General Appearance: No Apparent Distress, Thin Eyes: Bilateral Eye EOMI, Bilateral Eye Abnormal Pupil (mildly dilated) HEENT: Moist Mucous Membranes; No Photophobia Neck: Normal Inspection, Non Tender Respiratory: Chest Non Tender, Lungs Clear, Normal Breath Sounds Cardiovascular: No Bradycardia, No Systolic Murmur; Tachycardia Gastrointestinal: Non Tender; No Distended, No Hepatomegaly Back: No CVA Tenderness, No Vertebral Tenderness Extremity: Normal Inspection, Normal Range of Motion Neurologic/Psychiatric: Alert; No Oriented x3, No Normal Mood/Affect; Disoriented; No Facial Droop, No Motor Weakness Skin: Normal Color; No Rash; Tattoos/Piercings Lymphatic: No Adenopathy (BELLE HANLEY MED STUDENT) Focused Exam Lactate Level 03/22/21 12:51: Lactic Acid Level 2.23*H (BAILEE CHILDS MD) Lactic Acid Level Laboratory Tests Test 03/22/21 12:51 Lactic Acid Level 2.23 MMOL/L (0.50-2.00) *H (BAILEE CHILDS MD) Progress/Results/Core Measures Suspected Sepsis Recent Fever Within 48 Hours: No Infection Criteria Present: None New/Unexplained Altered Menta: No Sepsis Screen: No Definite Risk SIRS Temperature: Pulse: 148 Respiratory Rate: 20 Laboratory Tests 03/22/21 11:14: White Blood Count 14.0H Blood Pressure 143 /85 Mean: 104 03/22/21 12:51: Laboratory Tests 03/22/21 11:14: Creatinine 0.88, Platelet Count 383 (BELLE HALNEY STUDENT) Results/Orders Lab Results Laboratory Tests Test 03/22/21 11:14 03/22/21 12:51 03/22/21 14:05 Range/Units White Blood Count 14.0 H 4.3-11.0 10^3/uL Red Blood Count 5.33 H 3.80-5.11 10^6/uL Hemoglobin 15.6 11.5-16.0 g/dL Hematocrit 52 35-52 % Mean Corpuscular Volume 97 80-99 fL Mean Corpuscular Hemoglobin 29 25-34 pg Mean Corpuscular Hemoglobin Concent 30 L 32-36 g/dL Red Cell Distribution Width 13.0 10.0-14.5 % Platelet Count 383 130-400 10^3/uL Mean Platelet Volume 10.2 9.0-12.2 fL Immature Granulocyte % (Auto) 0 % Neutrophils (%) (Auto) 61 42-75 % Lymphocytes (%) (Auto) 31 12-44 % Monocytes (%) (Auto) 7 0-12 % Eosinophils (%) (Auto) 0 0-10 % Basophils (%) (Auto) 0 0-10 % Neutrophils # (Auto) 8.5 H 1.8-7.8 10^3/uL Lymphocytes # (Auto) 4.4 H 1.0-4.0 10^3/uL Monocytes # (Auto) 1.0 0.0-1.0 10^3/uL Eosinophils # (Auto) 0.0 0.0-0.3 10^3/uL Basophils # (Auto) 0.0 0.0-0.1 10^3/uL Immature Granulocyte # (Auto) 0.1 0.0-0.1 10^3/uL Sodium Level 141 135-145 MMOL/L Potassium Level 3.5 L 3.6-5.0 MMOL/L Chloride Level 100 98-107 MMOL/L Carbon Dioxide Level 10 L 21-32 MMOL/L Anion Gap 31 H 5-14 MMOL/L Blood Urea Nitrogen 16 7-18 MG/DL Creatinine 0.88 0.60-1.30 MG/DL Estimat Glomerular Filtration Rate > 60 BUN/Creatinine Ratio 18 Glucose Level 147 H 70-105 MG/DL Calcium Level 10.6 H 8.5-10.1 MG/DL Salicylates Level < 5.0 L 5.0-20.0 MG/DL Acetaminophen Level < 10 L 10-30 UG/ML Serum Alcohol < 10 <10 MG/DL Lactic Acid Level 2.23 *H 0.50-2.00 MMOL/L Urine Opiates Screen NEGATIVE NEGATIVE Urine Oxycodone Screen NEGATIVE NEGATIVE Urine Methadone Screen NEGATIVE NEGATIVE Urine Propoxyphene Screen NEGATIVE NEGATIVE Urine Barbiturates Screen NEGATIVE NEGATIVE Ur Tricyclic Antidepressants Screen POSITIVE H NEGATIVE Urine Phencyclidine Screen NEGATIVE NEGATIVE Urine Amphetamines Screen NEGATIVE NEGATIVE Urine Methamphetamines Screen NEGATIVE NEGATIVE Urine Benzodiazepines Screen POSITIVE H NEGATIVE Urine Cocaine Screen NEGATIVE NEGATIVE Urine Cannabinoids Screen NEGATIVE NEGATIVE (BAILEE CHILDS MD) My Orders Orders - BAILEE CHILDS MD Ed Iv/Invasive Line Start (03/22/21 11:29) Cbc With Automated Diff (03/22/21 11:29) Basic Metabolic Panel (03/22/21 11:29) Ekg Tracing (03/22/21 11:29) Ns Iv 1000 Ml (Sodium Chloride 0.9%) (03/22/21 11:30) Drug Screen Stat (Urine) (03/22/21 11:48) Acetaminophen (03/22/21 11:48) Salicylate (03/22/21 11:48) Alcohol (03/22/21 11:49) Lactic Acid Analyzer (03/22/21 12:24) Ns Iv 1000 Ml (Sodium Chloride 0.9%) (03/22/21 12:30) (BAILEE CHILDS MD) Vital Signs/I&O 03/22/21 03/22/21 11:12 14:45 Temp 36.5 Pulse 148 120 Resp 20 16 B/P (MAP) 143/85 (104) 151/70 Pulse Ox 97 99 (BAILEE CHILDS MD) Vital Signs/I&O Capillary Refill : Less Than 3 Seconds (BELLE HANLEY MED STUDENT) Blood Pressure Mean: 104 Progress Note : Time: 12:10 Progress Note Patient significantly more coherent, reaffirms no pain or complaints at this time, reports she does not remember much of today but vaguely recalls going to work around 10:30AM. Currently feels tired and mildly confused. Reports regular Xanex, taking her prescription every 4 hours. EtOH, Acetaminophen, and Salicylates all negative. Anion gap of 31, will order Lactic acid. (BELLE HANLEY MED STUDENT) Progress Note : Time: 14:31 Progress Note Patient seen and examined by me 30-year-old female who presents after a possible seizure. Patient evaluation today includes basic laboratory studies, CBC, chemistry, EKG, urine and urine drug screen. Lactic acid was also obtained after seeing the patient's anion gap of 31. Lactic acid was 2.23. Patient was hydrated with 2 L of normal saline here in the emergency department. She is mentally normal at this point. She has no complaints. No recent illnesses. No chest pain, shortness of breath abdominal pain, nausea vomiting or diarrhea. Patient still has no clear recollection of the events of the morning. I recommended that the patient call her primary care physician, Dr. Montejo for follow-up. Patient's initial heart rate of 140s to 160s has improved to a low of 112. The patient states that she has at baseline a resting tachycardia. At the time of my last evaluation the patient's heart rate was 120. She verbalized understanding and is agreeable with the plan of care. All questions are sought and answered. Patient is stable for discharge at this time. (BAILEE CHILDS MD) ECG Initial ECG Impression Date: March 22, 2021 Initial ECG Impression Time: 11:17 Initial ECG Rate: 146 Initial ECG Rhythm: S.Tach Initial ECG Intervals: Normal Initial ECG Impression: Nonspecific Changes (BAILEE CHILDS MD) Departure Impression Primary Impression: Transient alteration of awareness Additional Impressions: Tachycardia Lactic acidosis Disposition: 01 HOME, SELF-CARE Condition: Stable Departure-Patient Inst. Decision time for Depature: 14:33 (BAILEE CHILDS MD) Referrals: NEWTON MONTEJO MD (PCP/Family) Primary Care Physician Patient Instructions: Altered Mental Status (DC) Add. Discharge Instructions: Drink plenty of fluids to stay well-hydrated. Continue all your daily prescribed medications. Do not abruptly stop taking any of your medications. Please call your primary care physician's office today for a follow-up appointment this week. Come back to the emergency room for reevaluation if you have any return of symptoms or worsening symptoms or any new emergent concerns. I have seen and examined the patient. I have obtained a thorough history. I have reviewed and agree with the medical student's documentation. (BAILEE CHILDS MD) Copy Copies To 1: NEWTON MONTEJO MD, MATTHEW MED STUDENT March 22, 2021 12:27 BAILEE CHILDS MD March 22, 2021 13:20
[2021-03-22 14:21] LABS: AMPHETAMINE SCREEN, URINE NEGATIVE (NEGATIVE); BARBITURATE SCREEN URINE NEGATIVE (NEGATIVE); BENZODIAZEPINES SCREEN URINE POSITIVE (NEGATIVE); CANNABINOID SCREEN, URINE NEGATIVE (NEGATIVE); COCAINE SCREEN URINE NEGATIVE (NEGATIVE); METHADONE STAT NEGATIVE (NEGATIVE); METHAMPHETAMINE SCREEN URINE S NEGATIVE (NEGATIVE); OPIATE SCREEN URINE NEGATIVE (NEGATIVE); OXYCODONE STAT NEGATIVE (NEGATIVE); PROPOXYPHENE STAT NEGATIVE (NEGATIVE); TRICYCLIC ANTIDEPRESSANTS SCRE POSITIVE (NEGATIVE)
[2021-03-22 14:45] VITALS: BP 151/70
== END 2021-03-22 14:45 | disposition home or self-care (01) ==
LOC: EDUNIT# 11:08 → ER 11:13
DX: R40.4 Transient alteration of awareness (principal); R00.0 Tachycardia, unspecified; E87.2 Acidosis; J45.909 Unspecified asthma, uncomplicated; F17.210 Nicotine dependence, cigarettes, uncomplicated; Z88.0 Allergy status to penicillin; Z88.1 Allergy status to other antibiotic agents; Z88.6 Allergy status to analgesic agent; Z88.8 Allergy status to other drugs, medicaments and biological substances; Z79.52 Long term (current) use of systemic steroids
CPT/HCPCS: 80048; 80306; 83605; 85025; 93005; 99284; G0480 ×3; 36415; 80320; 80329

== ENCOUNTER 2021-04-04 21:38 | Emergency (ER) | payer BC ==
[~2021-04-04] VITALS: Ht 167 cm; Wt 68.0 kg
[2021-04-04 22:20] LABS: BASOPHILS % (AUTO) 0 % (0-10); EOSINOPHILS # (AUTO) 0.3 10^3/uL (0.0-0.3); EOSINOPHILS % (AUTO) 3 % (0-10); HEMATOCRIT 40 % (35-52); HEMOGLOBIN 13.3 g/dL (11.5-16.0); LYMPHOCYTES # (AUTO) 3.7 10^3/uL (1.0-4.0); LYMPHOCYTES % (AUTO) 47 % (12-44); MEAN CORPUSCULAR HEMOGLOBIN 30 pg (25-34); MEAN CORPUSCULAR HGB CONC 33 g/dL (32-36); MEAN CORPUSCULAR VOLUME 89 fL (80-99); MEAN PLATELET VOLUME 9.8 fL (9.0-12.2); MONOCYTES # (AUTO) 0.9 10^3/uL (0.0-1.0); MONOCYTES % (AUTO) 12 % (0-12); NEUTROPHILS % (AUTO) 38 % (42-75); PLATELET COUNT 251 10^3/uL (130-400); WHITE BLOOD COUNT 7.9 10^3/uL (4.3-11.0)
[2021-04-04 22:28] LABS: ALBUMIN 4.2 GM/DL (3.2-4.5); CHLORIDE 104 MMOL/L (98-107); POTASSIUM 3.8 MMOL/L (3.6-5.0); SODIUM 141 MMOL/L (135-145)
[2021-04-04 22:29] LABS: CALCIUM 9.4 MG/DL (8.5-10.1)
[2021-04-04 22:30] LABS: AMYLASE 75 U/L (25-125); GLUCOSE 83 MG/DL (70-105)
[2021-04-04 22:31] LABS: TOTAL PROTEIN 7.1 GM/DL (6.4-8.2)
[2021-04-04 22:32] LABS: CARBON DIOXIDE 26 MMOL/L (21-32)
[2021-04-04 22:33] LABS: BILIRUBIN,TOTAL 0.3 MG/DL (0.1-1.0)
[2021-04-04 22:34] LABS: ALKALINE PHOSPHATASE 65 U/L (40-136); CREATININE SERUM 0.71 MG/DL (0.60-1.30); GFR ESTIMATED > 60
[2021-04-04 22:35] LABS: BUN/CREATININE RATIO 13
[2021-04-04 22:37] LABS: ALANINE AMINOTRANSFERASE 12 U/L (0-55)
[2021-04-04 22:39] LABS: CREATINE KINASE 63 U/L (29-168); LIPASE 29 U/L (8-78)
[2021-04-04 22:45] LABS: CREATINE KINASE MB 0.3 NG/ML (<6.6)
[2021-04-04 22:50] LABS: BILIRUBIN,URINE NEGATIVE (NEGATIVE); CLARITY,URINE CLEAR; COLOR,URINE YELLOW; GLUCOSE, URINE (UA) NEGATIVE (NEGATIVE); KETONES,URINE TRACE (NEGATIVE); LEUKOCYTE ESTERASE ,URINE NEGATIVE (NEGATIVE); NITRITE,URINE NEGATIVE (NEGATIVE); PROTEIN,URINE NEGATIVE (NEGATIVE)
[2021-04-04 23:05] LABS: BACTERIA,URINE NEGATIVE /HPF; BENZODIAZEPINES SCREEN URINE POSITIVE (NEGATIVE); COCAINE SCREEN URINE NEGATIVE (NEGATIVE); SQUAMOUS EPITHELIAL CELL,UR 0-2 /HPF
[2021-04-04 23:06] LABS: AMPHETAMINE SCREEN, URINE NEGATIVE (NEGATIVE); BARBITURATE SCREEN URINE NEGATIVE (NEGATIVE); CANNABINOID SCREEN, URINE NEGATIVE (NEGATIVE); METHADONE STAT NEGATIVE (NEGATIVE); METHAMPHETAMINE SCREEN URINE S NEGATIVE (NEGATIVE); OPIATE SCREEN URINE NEGATIVE (NEGATIVE); OXYCODONE STAT POSITIVE (NEGATIVE); PROPOXYPHENE STAT NEGATIVE (NEGATIVE); TRICYCLIC ANTIDEPRESSANTS SCRE POSITIVE (NEGATIVE)
--- NOTE | 2021-04-04 23:14 | ED General ---
General Chief Complaint: Chest Pain Stated Complaint: CHEST/LEFT ARM/NECK PAIN SOA Allergies and Home Medications Allergies Coded Allergies: Penicillins (Unverified Allergy, Mild, PT ABLE TO TAKE ANCEF, 03/17/20) diclofenac (Unverified Allergy, Unknown, 03/17/20) divalproex sodium (Verified Allergy, Unknown, 03/17/20) levofloxacin (Verified Adverse Reaction, Intermediate, 03/16/21) STATES MAKES HER FEEL LIKE HER THROAT IS CLOSING, MAKES IT HARD TO SPEAK Home Medications Cephalexin 500 Mg Tablet, 500 MG PO TID Prescribed by: SHAYLA SUTTON on 03/16/212235 Prednisone 20 Mg Tab, 60 MG PO DAILY 3 tabs(60mg)daily x 3 days 2 tabs(40mg)daily x 3 days 1 tabs(20mg)daily x 3 days Prescribed by: FIORELLA MUNROE on 09/19/201921 Past Iaiwyrc-Ysgjlp-Pvrakq Hx Patient Social History Drug of Choice: BENZODIAZEPINE ABUSE Type Used: Cigarettes 2nd Hand Smoke Exposure: Yes Recent Hopitalizations: No Immunizations Up To Date Tetanus Booster (TDap): Less than 5yrs PED Vaccines UTD: Yes Date of Influenza Vaccine: Aug 30, 2017 Seasonal Allergies Seasonal Allergies: No Past Medical History Surgeries: Yes (LAPAROTOMY; HYST ; LSO) Abdominal, Adenoidectomy, Appendectomy, Hysterectomy, Oophorectomy, Tonsillectomy Respiratory: Yes Asthma Cardiac: Yes (Hx. 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 Sexually Transmitted Disease: No HIV/AIDS: No Genitourinary: No Gastrointestinal: No Musculoskeletal: Yes (CHRONIC OPIATE USE; MULITPLE VARIOUS CHRONIC PAIN COMPLA INTS) Degenerate Disk Disease, Arthritis, Back Injury, Scoliosis, Chronic Back Pain Endocrine: No HEENT: Yes (CHRONIC DENTAL PAIN/EXTENSIVE DENTAL DECAY) Cancer: No Psychosocial: Yes (EXTENSIVE PSYCH HISTORY;BENZODIAZEPINE ABUSE) Anxiety, PTSD, Bipolar, Depression Integumentary: No Blood Disorders: No Adverse Reaction/Blood Tranf: No Family Medical History Family history: Hypertension (mother, MGM, and PGM) Heart disease (mother and father) History of - anemia (family Hx of blood transfusions) Infertile Kidney disease (MGM) No Pertinent Family Hx Physical Exam Vital Signs Capillary Refill : Height, Weight, BMI Height: 5'6.00" Weight: 130lbs. 0.0oz. 58.345066ka; 53.00 BMI Method:Stated Progress/Results/Core Measures Suspected Sepsis SIRS Temperature: Pulse: Respiratory Rate: Laboratory Tests 04/04/21 22:10: White Blood Count 7.9 Blood Pressure / Mean: Laboratory Tests 04/04/21 22:10: Creatinine 0.71, Platelet Count 251, Total Bilirubin 0.3 Results/Orders Lab Results Laboratory Tests Test 04/04/21 22:10 04/04/21 22:20 04/04/21 22:40 04/04/21 22:45 Range/Units White Blood Count 7.9 4.3-11.0 10^3/uL Red Blood Count 4.49 3.80-5.11 10^6/uL Hemoglobin 13.3 11.5-16.0 g/dL Hematocrit 40 35-52 % Mean Corpuscular Volume 89 80-99 fL Mean Corpuscular Hemoglobin 30 25-34 pg Mean Corpuscular Hemoglobin Concent 33 32-36 g/dL Red Cell Distribution Width 12.6 10.0-14.5 % Platelet Count 251 130-400 10^3/uL Mean Platelet Volume 9.8 9.0-12.2 fL Immature Granulocyte % (Auto) 0 % Neutrophils (%) (Auto) 38 L 42-75 % Lymphocytes (%) (Auto) 47 H 12-44 % Monocytes (%) (Auto) 12 0-12 % Eosinophils (%) (Auto) 3 0-10 % Basophils (%) (Auto) 0 0-10 % Neutrophils # (Auto) 3.0 1.8-7.8 10^3/uL Lymphocytes # (Auto) 3.7 1.0-4.0 10^3/uL Monocytes # (Auto) 0.9 0.0-1.0 10^3/uL Eosinophils # (Auto) 0.3 0.0-0.3 10^3/uL Basophils # (Auto) 0.0 0.0-0.1 10^3/uL Immature Granulocyte # (Auto) 0.0 0.0-0.1 10^3/uL Sodium Level 141 135-145 MMOL/L Potassium Level 3.8 3.6-5.0 MMOL/L Chloride Level 104 98-107 MMOL/L Carbon Dioxide Level 26 21-32 MMOL/L Anion Gap 11 5-14 MMOL/L Blood Urea Nitrogen 9 7-18 MG/DL Creatinine 0.71 0.60-1.30 MG/DL Estimat Glomerular Filtration Rate > 60 BUN/Creatinine Ratio 13 Glucose Level 83 70-105 MG/DL Calcium Level 9.4 8.5-10.1 MG/DL Corrected Calcium 9.2 8.5-10.1 MG/DL Magnesium Level 2.0 1.6-2.4 MG/DL Total Bilirubin 0.3 0.1-1.0 MG/DL Aspartate Amino Transf (AST/SGOT) 13 5-34 U/L Alanine Aminotransferase (ALT/SGPT) 12 0-55 U/L Alkaline Phosphatase 65 40-136 U/L Total Creatine Kinase 63 29-168 U/L Creatine Kinase MB 0.3 <6.6 NG/ML Myoglobin 15.3 10.0-92.0 NG/ML Troponin I < 0.028 <0.028 NG/ML B-Type Natriuretic Peptide < 10.0 <100.0 PG/ML Total Protein 7.1 6.4-8.2 GM/DL Albumin 4.2 3.2-4.5 GM/DL Amylase Level 75 25-125 U/L Lipase 29 8-78 U/L Serum Test, Qualitative NEGATIVE NEGATIVE SARS-CoV-2 RNA (RT-PCR) Not Detected Not Detecte Urine Color YELLOW Urine Clarity CLEAR Urine pH 6.0 5-9 Urine Specific [place] 1.025 H 1.016-1.022 Urine Protein NEGATIVE NEGATIVE Urine Glucose (UA) NEGATIVE NEGATIVE Urine Ketones TRACE H NEGATIVE Urine Nitrite NEGATIVE NEGATIVE Urine Bilirubin NEGATIVE NEGATIVE Urine Urobilinogen 0.2 < = 1.0 MG/DL Urine Leukocyte Esterase NEGATIVE NEGATIVE Urine RBC (Auto) NEGATIVE NEGATIVE Urine RBC NONE /HPF Urine WBC NONE /HPF Urine Squamous Epithelial Cells 0-2 /HPF Urine Crystals NONE /LPF Urine Bacteria NEGATIVE /HPF Urine Casts NONE /LPF Urine Mucus SMALL H /LPF Urine Culture Indicated NO Urine Opiates Screen NEGATIVE NEGATIVE Urine Oxycodone Screen POSITIVE H NEGATIVE Urine Methadone Screen NEGATIVE NEGATIVE Urine Propoxyphene Screen NEGATIVE NEGATIVE Urine Barbiturates Screen NEGATIVE NEGATIVE Ur Tricyclic Antidepressants Screen POSITIVE H NEGATIVE Urine Phencyclidine Screen NEGATIVE NEGATIVE Urine Amphetamines Screen NEGATIVE NEGATIVE Urine Methamphetamines Screen NEGATIVE NEGATIVE Urine Benzodiazepines Screen POSITIVE H NEGATIVE Urine Cocaine Screen NEGATIVE NEGATIVE Urine Cannabinoids Screen NEGATIVE NEGATIVE My Orders Orders - MIRANDA LOCO DO Ed Iv/Invasive Line Start (04/04/21 22:10) Ekg Tracing (04/04/21 22:10) Monitor-Rhythm Ecg Trace Only (04/04/21 22:10) Amylase (04/04/21 22:10) BNP (04/04/21 22:10) Cbc With Automated Diff (04/04/21 22:10) Comprehensive Metabolic Panel (04/04/21 22:10) Creatine Kinase (04/04/21 22:10) Creatine Kinase Mb (04/04/21 22:10) Drug Screen Stat (Urine) (04/04/21 22:10) Lipase (04/04/21 22:10) Magnesium (04/04/21 22:10) Ua Culture If Indicated (04/04/21 22:10) Myoglobin Serum (04/04/21 22:10) Troponin I (04/04/21 22:10) Chest 1 View, Ap/Pa Only (04/04/21 22:10) Covid 19 Inhouse Test (04/04/21 22:30) Hcg,Qualitative Serum (04/04/21 22:30) Ketorolac Injection (Toradol Injection) (04/04/21 23:15) Orphenadrine Inj (Ed Only) (Norflex Inje (04/04/21 23:15) Medications Given in ED Current Medications Medications Dose Ordered Sig/Antonia Route Start Time Stop Time Status Last Admin Dose Admin Ketorolac Tromethamine 30 mg ONCE ONCE IVP 04/04/21 23:15 04/04/21 23:16 DC 04/04/21 23:34 30 MG Orphenadrine Citrate 60 mg ONCE ONCE IV 04/04/21 23:15 04/04/21 23:16 DC 04/04/21 23:34 60 MG Vital Signs/I&O Capillary Refill : Departure Impression Primary Impression: Chest wall pain Disposition: 01 HOME, SELF-CARE Condition: Stable Departure-Patient Inst. Decision time for Depature: 00:05 Referrals: NEWTON MONTEJO MD (PCP/Family) Primary Care Physician Patient Instructions: Chest Pain That Is Not Caused by the Heart (DC), Costochondritis (DC) Add. Discharge Instructions: TYLENOL AND MOTRIN NEEDED FOR PAIN FOLLOW UP WITH YOUR DR IN 2-3 DAYS IF NO BETTER All discharge instructions reviewed with patient and/or family. Voiced understanding. MIRANDA LOCO DO April 04, 2021 23:14
[2021-04-04] MEDS ORDERED: ORPHENADRINE 60 MG/2 ML (NORFLEX) AMP (ED ONLY) IV ONE (23:15)
[2021-04-04] MEDS ORDERED: KETOROLAC 30 MG/ML VIAL IVP ONE (23:15)
[2021-04-05 00:15] VITALS: BP 105/63
--- NOTE | 2021-04-05 05:31 | Diagnostic Imaging Report ---
INDICATION: CP COMPARISON: 01/04/2021 FINDINGS: Single frontal view of the chest demonstrates normal heart size and pulmonary vascularity. The lungs are well aerated and clear. No large pleural effusion or pneumothorax is seen. The visualized osseous structures show no acute abnormalities. IMPRESSION: 1. No acute cardiopulmonary process. Dictated by: Dictated on workstation # [id number]
== END 2021-04-05 00:18 | disposition home or self-care (01) ==
LOC: EDUNIT# 21:38 → ER 21:42
DX: R07.89 Other chest pain (principal); J45.909 Unspecified asthma, uncomplicated; Z77.22 Contact with and (suspected) exposure to environmental tobacco smoke (acute) (chronic); Z79.52 Long term (current) use of systemic steroids
CPT/HCPCS: 36415; 71045; 80053; 80306; 81000; 82150; 82550; 82553; 83690; 83735; 83874; 83880; 84484; 84703; 85025; 87636; 93005; 93041

== ENCOUNTER 2021-07-20 20:58 | Emergency (ER) | payer BC ==
[~2021-07-20 20:58] MED LIST changes: -SULF1TAB35 PO; +SULF1TAB38 PO
--- NOTE | 2021-07-20 22:23 | ED General ---
General Chief Complaint: Psych/Social Disorder Stated Complaint: SOB, IRREGULAR HEART RATE, BODY NUMBNESS, WEAKNESS Source of Information: Patient Exam Limitations: No Limitations History of Present Illness Date Seen by Provider: Jul 20, 2021 Time Seen by Provider: 22:19 Initial Comments ER with shortness of breath for a long time, body aches for a few weeks. She is had some labs done last week for this. She states that she got off of all narcotics over the course of the summer. She is prescribed Seroquel but is not taking it because it makes her too sleepy the next day. No fevers no chills no cough. She has ringing in her ears and tingling throughout her body. Timing/Duration: 1-2 Days Severity: Moderate Associated Systoms: Denies Symptoms Allergies and Home Medications Allergies Coded Allergies: Penicillins (Unverified Allergy, Mild, PT ABLE TO TAKE ANCEF, 03/17/20) diclofenac (Unverified Allergy, Unknown, 03/17/20) divalproex sodium (Verified Allergy, Unknown, 03/17/20) levofloxacin (Verified Adverse Reaction, Intermediate, 03/16/21) STATES MAKES HER FEEL LIKE HER THROAT IS CLOSING, MAKES IT HARD TO SPEAK Patient Home Medication List Home Medication List Reviewed: Yes Cephalexin (Cephalexin) 500 Mg Tablet, 500 MG PO TID Prescribed by: SHAYLA SUTTON on 03/16/212235 Cyclobenzaprine HCl (Cyclobenzaprine HCl) 10 Mg Tablet, (Reported) Entered as Reported by: TOM ARDON on 09/19/201701 Prednisone (Prednisone) 20 Mg Tab, 60 MG PO DAILY Prescribed by: FIORELLA MUNROE on 09/19/201921 Quetiapine Fumarate (Quetiapine Fumarate) 50 Mg Tablet, (Reported) Entered as Reported by: TOM ARDON on 09/19/20 170 Review of Systems Review of Systems Constitutional: see HPI EENTM: see HPI Respiratory: no symptoms reported Cardiovascular: no symptoms reported Genitourinary: no symptoms reported Musculoskeletal: no symptoms reported Skin: no symptoms reported Psychiatric/Neurological: No Symptoms Reported Hematologic/Lymphatic: No Symptoms Reported Past Mbejztj-Jatqxc-Tlzmbo Hx Immunizations Up To Date Tetanus Booster (TDap): Less than 5yrs PED Vaccines UTD: Yes Seasonal Allergies Seasonal Allergies: No Past Medical History Surgeries: Yes (LAPAROTOMY; HYST ; LSO) Abdominal, Adenoidectomy, Appendectomy, Hysterectomy, Oophorectomy, Tonsillectomy Respiratory: Yes Asthma Cardiac: Yes (Hx. 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 Sexually Transmitted Disease: No HIV/AIDS: No Genitourinary: No Gastrointestinal: No Musculoskeletal: Yes (CHRONIC OPIATE USE; MULITPLE VARIOUS CHRONIC PAIN COMPLAINTS) Degenerate Disk Disease, Arthritis, Back Injury, Scoliosis, Chronic Back Pain Endocrine: No HEENT: Yes (CHRONIC DENTAL PAIN/EXTENSIVE DENTAL DECAY) Cancer: No Psychosocial: Yes (EXTENSIVE PSYCH HISTORY;BENZODIAZEPINE ABUSE) Pseudo Seizures, Anxiety, PTSD, Bipolar, Depression Integumentary: No Blood Disorders: No Adverse Reaction/Blood Tranf: No Family Medical History Family history: Hypertension (mother, MGM, and PGM) Heart disease (mother and father) History of - anemia (family Hx of blood transfusions) Infertile Kidney disease (MGM) No Pertinent Family Hx CHRONIC OPIATE AND BENZODIAZEPINE USE/ABUSE Physical Exam Vital Signs Capillary Refill : Height, Weight, BMI Height: 5'6.00" Weight: 130lbs. 0.0oz. [id number]; 24.00 BMI Method:Stated General Appearance: No Apparent Distress, WD/WN Eyes: Bilateral Eye Normal Inspection, Bilateral Eye PERRL, Bilateral Eye EOMI Neck: Full Range of Motion, Normal Inspection Respiratory: No Accessory Muscle Use, No Respiratory Distress Cardiovascular: Regular Rate, Rhythm, Normal Peripheral Pulses Gastrointestinal: Normal Bowel Sounds, Non Tender, Soft Extremity: Normal Capillary Refill, Normal Inspection Neurologic/Psychiatric: Alert, Oriented x3 Skin: Normal Color, Warm/Dry Progress/Results/Core Measures Suspected Sepsis SIRS Temperature: Pulse: Respiratory Rate: Blood Pressure / Mean: Results/Orders My Orders Orders - ISMAEL SOL APRN Cbc With Automated Diff (07/20/21 22:18) Hcg,Qualitative Serum (07/20/21 22:18) Comprehensive Metabolic Panel (07/20/21 22:18) Erythrocyte Sedimentation Rate (07/20/21 22:18) Ekg Tracing (07/20/21 22:18) Hs C Reactive Protein (07/20/21 22:18) Thyroid Stimulating Hormone (07/20/21 22:18) Vital Signs/I&O Capillary Refill : Departure Impression Primary Impression: General symptom Disposition: HOME, SELF-CARE Condition: Stable Departure-Patient Inst. Decision time for Depature: 22:23 Referrals: NEWTON MONTEJO MD (PCP/Family) Primary Care Physician Patient Instructions: NO INSTRUCTIONS GIVEN Add. Discharge Instructions: All discharge instructions reviewed with patient and/or family. Voiced understanding. ISMAEL SOL SOFTWARE DESIGNER Jul 20, 2021 22:23
[2021-07-20 22:41] LABS: BASOPHILS % (AUTO) 0 % (0-10); EOSINOPHILS # (AUTO) 0.1 10^3/uL (0.0-0.3); EOSINOPHILS % (AUTO) 2 % (0-10); HEMATOCRIT 41 % (35-52); HEMOGLOBIN 13.5 g/dL (11.5-16.0); LYMPHOCYTES # (AUTO) 3.4 10^3/uL (1.0-4.0); LYMPHOCYTES % (AUTO) 45 % (12-44); MEAN CORPUSCULAR HEMOGLOBIN 29 pg (25-34); MEAN CORPUSCULAR HGB CONC 33 g/dL (32-36); MEAN CORPUSCULAR VOLUME 89 fL (80-99); MEAN PLATELET VOLUME 10.6 fL (9.0-12.2); MONOCYTES # (AUTO) 0.6 10^3/uL (0.0-1.0); MONOCYTES % (AUTO) 8 % (0-12); NEUTROPHILS # (AUTO) 3.4 10^3/uL (1.8-7.8); NEUTROPHILS % (AUTO) 45 % (42-75); PLATELET COUNT 212 10^3/uL (130-400); WHITE BLOOD COUNT 7.7 10^3/uL (4.3-11.0)
[2021-07-20 22:49] LABS: ALBUMIN 4.2 GM/DL (3.2-4.5)
[2021-07-20 22:50] LABS: POTASSIUM 3.3 MMOL/L (3.6-5.0)
[2021-07-20 22:51] LABS: CALCIUM 9.4 MG/DL (8.5-10.1)
[2021-07-20 22:52] LABS: TOTAL PROTEIN 7.1 GM/DL (6.4-8.2)
[2021-07-20 22:54] LABS: BILIRUBIN,TOTAL 0.3 MG/DL (0.1-1.0)
[2021-07-20 22:56] LABS: CREATININE SERUM 0.74 MG/DL (0.60-1.30)
[2021-07-20 22:59] LABS: ERYTHROCYTE SEDIMENTATION RATE 7 MM/HR (0-20)
[2021-07-20 23:41] VITALS: BP 120/85
== END 2021-07-20 23:41 | disposition home or self-care (01) ==
LOC: EDUNIT# 20:58 → ER 21:03
DX: R68.89 Other general symptoms and signs (principal); J45.909 Unspecified asthma, uncomplicated; F31.9 Bipolar disorder, unspecified; Z79.52 Long term (current) use of systemic steroids; Z79.899 Other long term (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
CPT/HCPCS: 36415; 80053; 84443; 84703; 85025; 85652; 86141; 93005

== ENCOUNTER 2021-07-23 21:20 | Emergency (ER) | payer BC ==
[~2021-07-23] VITALS: Ht 168 cm; Wt 59.9 kg
[2021-07-23 21:30] VITALS: BP 122/80
[2021-07-23] MEDS ORDERED: CARI1.5C (21:35)
[2021-07-23] MEDS ORDERED: CLON0.5T4 (21:35)
[2021-07-23] MEDS ORDERED: cefTRIAXone 1,000 MG VIAL IM ONE (21:45)
[2021-07-23] MEDS ORDERED: LIDOCAINE 1% INJ 20 ML 20 ML VIAL INJ ONE (21:45)
[2021-07-23] MEDS ORDERED: KETOROLAC 60 MG/2 ML VIAL IM ONE (21:45)
[2021-07-23] MEDS ORDERED: CEPH500T PO (21:48)
--- NOTE | 2021-07-23 21:48 | ED EENT ---
History of Present Illness General Chief Complaint: Dental Problems/Pain Stated Complaint: DENTAL PAIN/SWELLING Nursing Triage Note: LEFT LOWER POSTERIOR DENTAL PAIN TODAY, NAUSEA. NO TREATMENT. Source: patient Exam Limitations: no limitations History of Present Illness Date Seen by Provider: Jul 23, 2021 Time Seen by Provider: 21:45 Initial Comments To ER with left lower dental pain since today. She cannot afford any antibi otics until next week. Timing/Duration: abrupt Severity: mild Prearrival Treatment: no prearrival treatment Associated Symptoms: denies symptoms Allergies and Home Medications Allergies Coded Allergies: Penicillins (Unverified Allergy, Mild, PT ABLE TO TAKE ANCEF, 03/17/20) diclofenac (Unverified Allergy, Unknown, 03/17/20) divalproex sodium (Verified Allergy, Unknown, 03/17/20) levofloxacin (Verified Adverse Reaction, Intermediate, 03/16/21) STATES MAKES HER FEEL LIKE HER THROAT IS CLOSING, MAKES IT HARD TO SPEAK Patient Home Medication List Home Medication List Reviewed: Yes Cariprazine Hydrochloride (Vraylar) 1.5 Mg Capsule, (Reported) Entered as Reported by: ALLISON CHAPIN on 07/23/212134 Last Action: New Order Clonazepam (Clonazepam) 0.5 Mg Tablet, (Reported) Entered as Reported by: ALLISON CHAPIN on 07/23/212134 Last Action: New Order Quetiapine Fumarate (Quetiapine Fumarate) 50 Mg Tablet, (Reported) Entered as Reported by: TOM ARDON on 09/19/201701 Last Action: Last Taken Edited Discontinued Medications Cephalexin (Cephalexin) 500 Mg Tablet, 500 MG PO TID Discontinued Reason: No Longer Taking Prescribed by: SHAYLA SUTTON on 03/16/212235 Last Action: Discontinued Cyclobenzaprine HCl (Cyclobenzaprine HCl) 10 Mg Tablet, (Reported) Discontinued Reason: No Longer Taking Entered as Reported by: TOM ARDON on 09/19/201701 Last Action: Discontinued Prednisone (Prednisone) 20 Mg Tab, 60 MG PO DAILY Discontinued Reason: No Longer Taking Prescribed by: FIORELLA MUNROE on 09/19/201921 Last Action: Discontinued Review of Systems Review of Systems Constitutional: see HPI Eyes: No Symptoms Reported Ears: No Symptoms Reported Nose: no symptoms reported Mouth: no symptoms reported Throat: no symptoms reported Respiratory: no symptoms reported Cardiovascular: no symptoms reported Musculoskeletal: no symptoms reported Past Qralfhc-Mcahij-Xtlchc Hx Patient Social History Tobacco Use?: Yes Tobacco type used: Cigarettes Smoking Status: Current Everyday Smoker Substance use?: No Alcohol Use?: No Pt feels they are or have been: No Immunizations Up To Date Tetanus Booster (TDap): Less than 5yrs PED Vaccines UTD: Yes First/Initial COVID19 Vaccinat: 02/15/21 Second COVID19 Vaccination Master: 02/15/21 Seasonal Allergies Seasonal Allergies: No Past Medical History Surgeries: Yes (LAPAROTOMY; HYST ; LSO) Abdominal, Adenoidectomy, Appendectomy, Hysterectomy, Oophorectomy, Tonsillectomy Respiratory: Yes Asthma Cardiac: Yes (Hx. 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 Sexually Transmitted Disease: No HIV/AIDS: No Genitourinary: No Gastrointestinal: No Musculoskeletal: Yes (CHRONIC OPIATE USE; MULITPLE VARIOUS CHRONIC PAIN COMPLAINTS) Degenerate Disk Disease, Arthritis, Back Injury, Scoliosis, Chronic Back Pain Endocrine: No HEENT: Yes (CHRONIC DENTAL PAIN/EXTENSIVE DENTAL DECAY) Cancer: No Psychosocial: Yes (EXTENSIVE PSYCH HISTORY;BENZODIAZEPINE ABUSE) Pseudo Seizures, Anxiety, PTSD, Bipolar, Depression Integumentary: No Blood Disorders: No Adverse Reaction/Blood Tranf: No Family Medical History Family history: Hypertension (mother, MGM, and PGM) Heart disease (mother and father) History of - anemia (family Hx of blood transfusions) Infertile Kidney disease (MGM) No Pertinent Family Hx CHRONIC OPIATE AND BENZODIAZEPINE USE/ABUSE Physical Exam Vital Signs Vital Signs - First Documented 07/23/21 21:30 Temp 36.0 Pulse 93 Resp 18 B/P (MAP) 122/80 (94) Pulse Ox 97 O2 Delivery Room Air Height, Weight, BMI Height: 5'6.00" Weight: 130lbs. 0.0oz. 58.955489rz; 21.00 BMI Method:Stated General Appearance: WD/WN, no apparent distress Eyes: bilateral eye normal inspection, bilateral eye PERRL, bilateral eye EOMI Ears: bilateral ear auricle normal, bilateral ear canal normal, bilateral ear TM normal Mouth/Throat: other (Left lower dental pain. There are several teeth in the poor state of health. Gingival inflammation, plaquing of the teeth, caries. No fluctuant drainable abscess. Or is) Neck: non-tender, full range of motion Cardiovascular: regular rate, rhythm, no murmur Respiratory: normal breath sounds, no respiratory distress, no accessory muscle use Neurologic/Psychiatric: alert, normal mood/affect, oriented x 3 Skin: normal color, warm/dry Progress/Results/Core Measures Results/Orders My Orders Orders - ISMAEL SOL APRN Ceftriaxone (Rocephin) (07/23/21 21:45) Ketorolac Injection (Toradol Injection) (07/23/21 21:45) Lidocaine 1% Inj 20 Ml (Xylocaine 1% Inj (07/23/21 21:45) Vital Signs/I&O 07/23/21 21:30 Temp 36.0 Pulse 93 Resp 18 B/P (MAP) 122/80 (94) Pulse Ox 97 O2 Delivery Room Air Blood Pressure Mean: 94 Departure Impression Primary Impression: Dental caries Disposition: 01 HOME, SELF-CARE Condition: Stable Departure-Patient Inst. Decision time for Depature: 21:47 Referrals: NEWTON MONTEJO MD (PCP/Family) Primary Care Physician Patient Instructions: Dental Pain ED Add. Discharge Instructions: 1. Tylenol and ibuprofen for pain control. Return to ER for any concerns. All discharge instructions reviewed with patient and/or family. Voiced understanding. Scripts Cephalexin (Cephalexin) 500 Mg Tablet 500 MG PO TID, #15 TAB Prov: ISMAEL SOL APRN 07/23/21 ISMAEL SOL APRN Jul 23, 2021 21:48
[2021-07-23] MEDS ORDERED: ONDANSETRON 4 MG (ZOFRAN) ORAL DISSOLVE TAB PO STA (21:49)
== END 2021-07-23 21:56 | disposition home or self-care (01) ==
LOC: EDUNIT# 21:20 → ER 21:21
DX: K02.9 Dental caries, unspecified (principal); J45.909 Unspecified asthma, uncomplicated; F41.9 Anxiety disorder, unspecified; F31.9 Bipolar disorder, unspecified; G40.909 Epilepsy, unspecified, not intractable, without status epilepticus; F17.210 Nicotine dependence, cigarettes, uncomplicated; Z79.899 Other long term (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
CPT/HCPCS: 99284

== ENCOUNTER 2021-07-25 00:31 | Emergency (ER) | payer BC ==
[~2021-07-25] VITALS: Ht 167.7 cm; Wt 60.0 kg
[~2021-07-25 00:31] MED LIST changes: +CARI1.5C; +CLON0.5T4
[2021-07-25 00:37] VITALS: BP 119/79
[2021-07-25] MEDS ORDERED: KETOROLAC 30 MG/ML VIAL IM ONE (01:15)
[2021-07-25] MEDS ORDERED: LIDOCAINE 2% VISCOUS 15 ML UDC MM ONE (01:15)
--- NOTE | 2021-07-25 01:17 | ED EENT ---
History of Present Illness General Chief Complaint: Dental Problems/Pain Stated Complaint: DENTAL PAIN Nursing Triage Note: Pt arrival to ER with complaint of dental pain x1 week. Pt seen yesterday in ER for same complaint. Bottom left rear tooth. Source: patient Exam Limitations: no limitations History of Present Illness Date Seen by Provider: Jul 25, 2021 Time Seen by Provider: 01:05 Initial Comments This 30-year-old woman presents to the emergency room with persistent left lower dental pain. She was seen 2 days ago and treated with Toradol and Rocephin for suspected infection. Her left lower most posterior molar is completely eroded with a small fragment of root still visible. She has edema and tenderness surrounding this area but no visible abscess. She was prescribed antibiotics but has not yet started them. She is afebrile. Allergies and Home Medications Allergies Coded Allergies: Penicillins (Unverified Allergy, Mild, PT ABLE TO TAKE ANCEF, 03/17/20) diclofenac (Unverified Allergy, Unknown, 03/17/20) divalproex sodium (Verified Allergy, Unknown, 03/17/20) levofloxacin (Verified Adverse Reaction, Intermediate, 03/16/21) STATES MAKES HER FEEL LIKE HER THROAT IS CLOSING, MAKES IT HARD TO SPEAK Patient Home Medication List Home Medication List Reviewed: Yes Cariprazine Hydrochloride (Vraylar) 1.5 Mg Capsule, (Reported) Entered as Reported by: ALLISON CHAPIN on 07/23/212134 Cephalexin (Cephalexin) 500 Mg Tablet, 500 MG PO TID Prescribed by: ISMAEL SOL on 07/23/212147 Clonazepam (Clonazepam) 0.5 Mg Tablet, (Reported) Entered as Reported by: ALLISON CHAPIN on 07/23/212134 Quetiapine Fumarate (Quetiapine Fumarate) 50 Mg Tablet, (Reported) Entered as Reported by: TOM ARDON on 09/19/20 170 Discontinued Medications Cephalexin (Cephalexin) 500 Mg Tablet, 500 MG PO TID Discontinued Reason: No Longer Taking Prescribed by: SHAYLA SUTTON on 03/16/212235 Cyclobenzaprine HCl (Cyclobenzaprine HCl) 10 Mg Tablet, (Reported) Discontinued Reason: No Longer Taking Entered as Reported by: TOM ARDON on 09/19/20 170 Prednisone (Prednisone) 20 Mg Tab, 60 MG PO DAILY Discontinued Reason: No Longer Taking Prescribed by: FIORELLA MUNROE on 09/19/201921 Review of Systems Review of Systems Constitutional: no symptoms reported Eyes: No Symptoms Reported Ears: No Symptoms Reported Nose: no symptoms reported Mouth: see HPI Throat: no symptoms reported Respiratory: no symptoms reported Cardiovascular: no symptoms reported : No Musculoskeletal: no symptoms reported Neurological: No Symptoms Reported Past Tgcknqh-Jdcxwg-Aekmnn Hx Patient Social History Tobacco Use?: Yes Tobacco type used: Cigarettes Smoking Status: Current Everyday Smoker Use of E-Cig and/or Vaping dev: No Substance use?: No Alcohol Use?: No Pt feels they are or have been: No Immunizations Up To Date Tetanus Booster (TDap): Less than 5yrs PED Vaccines UTD: Yes Influenza Vaccine Up-to-Date: No; Not Current First/Initial COVID19 Vaccinat: 02/15/21 Second COVID19 Vaccination Master: 02/15/21 Seasonal Allergies Seasonal Allergies: No Past Medical History Surgeries: Yes (LAPAROTOMY; HYST ; LSO) Abdominal, Adenoidectomy, Appendectomy, Hysterectomy, Oophorectomy, Tonsillectomy Respiratory: Yes Asthma Cardiac: Yes (Hx. 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 Sexually Transmitted Disease: No HIV/AIDS: No Genitourinary: No Gastrointestinal: No Musculoskeletal: Yes (CHRONIC OPIATE USE; MULITPLE VARIOUS CHRONIC PAIN COMPLAINTS) Degenerate Disk Disease, Arthritis, Back Injury, Scoliosis, Chronic Back Pain Endocrine: No HEENT: Yes (CHRONIC DENTAL PAIN/EXTENSIVE DENTAL DECAY) Cancer: No Psychosocial: Yes (EXTENSIVE PSYCH HISTORY;BENZODIAZEPINE ABUSE) Pseudo Seizures, Anxiety, PTSD, Bipolar, Depression Integumentary: No Blood Disorders: No Adverse Reaction/Blood Tranf: No Family Medical History Family history: Hypertension (mother, MGM, and PGM) Heart disease (mother and father) History of - anemia (family Hx of blood transfusions) Infertile Kidney disease (MGM) No Pertinent Family Hx CHRONIC OPIATE AND BENZODIAZEPINE USE/ABUSE Physical Exam Vital Signs Vital Signs - First Documented 07/25/21 00:37 Temp 36.7 Pulse 88 Resp 18 B/P (MAP) 119/79 (92) Pulse Ox 98 O2 Delivery Room Air Height, Weight, BMI Height: 5'6.00" Weight: 130lbs. 0.0oz. 58.997528uw; 21.00 BMI Method:Stated General Appearance: WD/WN, no apparent distress Ears: bilateral ear auricle normal Nose: normal inspection Mouth/Throat: pharynx normal, other (Upper dentures noted. Left lower most posterior molar is completely eroded with only small fragment of root showing. There is localized swelling and tenderness around this area. No blatant inflammatory changes or apparent abscess.) Neck: normal inspection Cardiovascular: regular rate, rhythm, no murmur Respiratory: lungs clear, normal breath sounds, no respiratory distress Neurologic/Psychiatric: practice assistant II-XII nml as tested, no motor/sensory deficits, alert, normal mood/affect, oriented x 3 Skin: normal color, warm/dry Progress/Results/Core Measures Results/Orders My Orders Orders - CALVIN JACOBO MD Ketorolac Injection (Toradol Injection) (07/25/21 01:15) Lidocaine 2% Viscous 15 Ml (Xylocaine Vi (07/25/21 01:15) Vital Signs/I&O Blood Pressure Mean: 92 Progress Progress Note : Progress Note Toradol and anesthetic gauze pads were given for treatment of pain. The importance of starting her antibiotics this morning was stressed. The importance of follow-up with a dentist for extraction of the root was also stressed. Departure Impression Primary Impression: Pain, dental Additional Impression: Dental decay Disposition: 01 HOME, SELF-CARE Condition: Improved Departure-Patient Inst. Decision time for Depature: 01:15 Referrals: [facility] [place] ([place]/Family) Primary Care Physician Patient Instructions: Dental Pain (DC), Tooth Decay, Adult (DC) Add. Discharge Instructions: [place] your teeth gently twice daily. Follow-up with your dentist as soon as possible to arrange dental extractions. Fill your antibiotic in the morning and complete the entire course as prescribed. You may take ibuprofen up to 600 mg every 6 hours and/or Tylenol (acetaminophen) up to 1000 mg every 6 hours as needed for pain. You may use the anesthetic gauze pads draped over the area of greatest pain as needed. Eat and drink very cautiously after using these numbing pads as your tongue, throat, lips, and cheeks may be numb and prone to burn or other injury. Do not fall asleep with numbing gauze pads in your mouth as this may present a choking hazard. Call with questions or concerns. Return to the ER if you have worsening symptoms. All discharge instructions reviewed with patient and/or family. Voiced understanding. Copy Copies To 1: NICOLA MANUEL JOSHUA T MD Jul 25, 2021 01:17
== END 2021-07-25 01:24 | disposition home or self-care (01) ==
LOC: EDUNIT# 00:31 → ER 00:34
DX: K02.9 Dental caries, unspecified (principal); J45.909 Unspecified asthma, uncomplicated; G40.909 Epilepsy, unspecified, not intractable, without status epilepticus; F31.9 Bipolar disorder, unspecified; F17.210 Nicotine dependence, cigarettes, uncomplicated; Z79.899 Other long term (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
CPT/HCPCS: 99284

== ENCOUNTER 2021-07-27 18:06 | Emergency (ER) | payer BC ==
[~2021-07-27] VITALS: Ht 167 cm; Wt 59.0 kg
--- NOTE | 2021-07-27 18:16 | ED General ---
General Chief Complaint: General Problems/Pain Stated Complaint: TOOTH PAIN, CONFUSION Source of Information: Patient Exam Limitations: No Limitations History of Present Illness Date Seen by Provider: Jul 27, 2021 Time Seen by Provider: 18:45 Initial Comments To ER with reports of ongoing dental pain. Her antibiotics were switched ye sterday. She is concerned that she is "going septic". She generally does not feel right she states. Timing/Duration: 1-2 Days Severity: Moderate Associated Systoms: Denies Symptoms Allergies and Home Medications Allergies Coded Allergies: Penicillins (Unverified Allergy, Mild, PT ABLE TO TAKE ANCEF, 03/17/20) diclofenac (Unverified Allergy, Unknown, 03/17/20) divalproex sodium (Verified Allergy, Unknown, 03/17/20) levofloxacin (Verified Adverse Reaction, Intermediate, 03/16/21) STATES MAKES HER FEEL LIKE HER THROAT IS CLOSING, MAKES IT HARD TO SPEAK Patient Home Medication List Home Medication List Reviewed: Yes Cariprazine Hydrochloride (Vraylar) 1.5 Mg Capsule, (Reported) Entered as Reported by: ALLISON CHAPIN on 07/23/212134 Cephalexin (Cephalexin) 500 Mg Tablet, 500 MG PO TID Prescribed by: ISMAEL SOL on 07/23/212147 Clonazepam (Clonazepam) 0.5 Mg Tablet, (Reported) Entered as Reported by: ALLISON CHAPIN on 07/23/212134 Quetiapine Fumarate (Quetiapine Fumarate) 50 Mg Tablet, (Reported) Entered as Reported by: TOM ARDON on 09/19/201701 Discontinued Medications Cephalexin (Cephalexin) 500 Mg Tablet, 500 MG PO TID Discontinued Reason: No Longer Taking Prescribed by: SHAYLA SUTTON on 03/16/212235 Cyclobenzaprine HCl (Cyclobenzaprine HCl) 10 Mg Tablet, (Reported) Discontinued Reason: No Longer Taking Entered as Reported by: TOM ARDON on 09/19/201701 Prednisone (Prednisone) 20 Mg Tab, 60 MG PO DAILY Discontinued Reason: No Longer Taking Prescribed by: FIORELLA MUNROE on 09/19/201921 Review of Systems Review of Systems Constitutional: see HPI EENTM: see HPI Respiratory: no symptoms reported Cardiovascular: no symptoms reported Genitourinary: no symptoms reported Musculoskeletal: no symptoms reported Skin: no symptoms reported Psychiatric/Neurological: No Symptoms Reported Hematologic/Lymphatic: No Symptoms Reported Past Slqytwe-Uumvai-Bequep Hx Immunizations Up To Date Tetanus Booster (TDap): Less than 5yrs PED Vaccines UTD: Yes First/Initial COVID19 Vaccinat: 02/15/21 Second COVID19 Vaccination Master: 02/15/21 Seasonal Allergies Seasonal Allergies: No Past Medical History Surgeries: Yes (LAPAROTOMY; HYST ; LSO) Abdominal, Adenoidectomy, Appendectomy, Hysterectomy, Oophorectomy, Tonsillectomy Respiratory: Yes Asthma Cardiac: Yes (Hx. 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 Dis [employer] History: Hysterectomy Sexually Transmitted Disease: No HIV/AIDS: No Genitourinary: No Gastrointestinal: No Musculoskeletal: Yes (CHRONIC OPIATE USE; MULITPLE VARIOUS CHRONIC PAIN COMPLAINTS) Degenerate Disk Disease, Arthritis, Back Injury, Scoliosis, Chronic Back Pain Endocrine: No HEENT: Yes (CHRONIC DENTAL PAIN/EXTENSIVE DENTAL DECAY) Cancer: No Psychosocial: Yes (EXTENSIVE PSYCH HISTORY;BENZODIAZEPINE ABUSE) Pseudo Seizures, Anxiety, PTSD, Bipolar, Depression Integumentary: No Blood Disorders: No Adverse Reaction/Blood Tranf: No Family Medical History Family history: Hypertension (mother, MGM, and PGM) Heart disease (mother and father) History of - anemia (family Hx of blood transfusions) Infertile Kidney disease (MGM) No Pertinent Family Hx CHRONIC OPIATE AND BENZODIAZEPINE USE/ABUSE Physical Exam Vital Signs Vital Signs - First Documented 07/27/21 18:15 Temp 36.8 Pulse 97 Resp 18 B/P (MAP) 117/76 (90) Pulse Ox 96 O2 Delivery Room Air Capillary Refill : Height, Weight, BMI Height: 5'6.00" Weight: 130lbs. 0.0oz. 58.363833qv; 21.00 BMI Method:Stated General Appearance: No Apparent Distress, WD/WN Eyes: Bilateral Eye Normal Inspection, Bilateral Eye PERRL, Bilateral Eye EOMI Neck: Full Range of Motion, Normal Inspection; No Lymphadenopathy (L), No Lymphadenopathy (R) Respiratory: No Accessory Muscle Use, No Respiratory Distress Cardiovascular: Regular Rate, Rhythm, Normal Peripheral Pulses Gastrointestinal: Normal Bowel Sounds, Non Tender, Soft Extremity: Normal Capillary Refill, Normal Inspection Neurologic/Psychiatric: Alert, Oriented x3 Skin: Normal Color, Warm/Dry Progress/Results/Core Measures Suspected Sepsis SIRS Temperature: Pulse: Respiratory Rate: Laboratory Tests 07/27/21 18:44: White Blood Count 6.8 Blood Pressure / Mean: Laboratory Tests 07/27/21 18:44: Creatinine 0.75, Platelet Count 210 Results/Orders Lab Results Laboratory Tests Test 07/27/21 18:44 Range/Units White Blood Count 6.8 4.3-11.0 10^3/uL Red Blood Count 4.37 3.80-5.11 10^6/uL Hemoglobin 12.8 11.5-16.0 g/dL Hematocrit 39 35-52 % Mean Corpuscular Volume 88 80-99 fL Mean Corpuscular Hemoglobin 29 25-34 pg Mean Corpuscular Hemoglobin Concent 33 32-36 g/dL Red Cell Distribution Width 12.3 10.0-14.5 % Platelet Count 210 130-400 10^3/uL Mean Platelet Volume 10.7 9.0-12.2 fL Immature Granulocyte % (Auto) 1 % Neutrophils (%) (Auto) 49 42-75 % Lymphocytes (%) (Auto) 41 12-44 % Monocytes (%) (Auto) 7 0-12 % Eosinophils (%) (Auto) 2 0-10 % Basophils (%) (Auto) 0 0-10 % Neutrophils # (Auto) 3.4 1.8-7.8 10^3/uL Lymphocytes # (Auto) 2.8 1.0-4.0 10^3/uL Monocytes # (Auto) 0.5 0.0-1.0 10^3/uL Eosinophils # (Auto) 0.1 0.0-0.3 10^3/uL Basophils # (Auto) 0.0 0.0-0.1 10^3/uL Immature Granulocyte # (Auto) 0.1 0.0-0.1 10^3/uL Sodium Level 140 135-145 MMOL/L Potassium Level 3.1 L 3.6-5.0 MMOL/L Chloride Level 102 98-107 MMOL/L Carbon Dioxide Level 28 21-32 MMOL/L Anion Gap 10 5-14 MMOL/L Blood Urea Nitrogen 18 7-18 MG/DL Creatinine 0.75 0.60-1.30 MG/DL Estimat Glomerular Filtration Rate 91 BUN/Creatinine Ratio 24 Glucose Level 112 H 70-105 MG/DL Calcium Level 9.2 8.5-10.1 MG/DL Serum Test, Qualitative NEGATIVE NEGATIVE My Orders Orders - ISMAEL SOL APRN Cbc With Automated Diff (07/27/21 18:16) Hcg,Qualitative Serum (07/27/21 18:16) Basic Metabolic Panel (07/27/21 18:45) Ketorolac Injection (Toradol Injection) (07/27/21 19:15) Potassium Chloride (Tablet) (K Dur Table (07/27/21 19:15) Medications Given in ED Current Medications Medications Dose Ordered Sig/Antonia Route Start Time Stop Time Status Last Admin Dose Admin Ketorolac Tromethamine 60 mg ONCE ONCE IM 07/27/21 19:15 07/27/21 19:16 DC 07/27/21 19:27 60 MG Potassium Chloride 40 meq ONCE ONCE PO 07/27/21 19:15 07/27/21 19:16 DC 07/27/21 19:26 40 MEQ Vital Signs/I&O 07/27/21 18:15 Temp 36.8 Pulse 97 Resp 18 B/P (MAP) 117/76 (90) Pulse Ox 96 O2 Delivery Room Air Capillary Refill : Departure Communication (Admissions) No visible swelling or apparent abscess. Impression Primary Impression: General medical exam Disposition: 01 HOME, SELF-CARE Condition: Stable Departure-Patient Inst. Decision time for Depature: 19:28 Referrals: [facility] (PCP/Family) Primary Care Physician Patient Instructions: Dental Pain Add. Discharge Instructions: 1. Return to ER for any concerns. Continue current meds. All discharge instructions reviewed with patient and/or family. Voiced understanding. ISMAEL SOL APRN Jul 27, 2021 18:16
[2021-07-27 18:52] LABS: BASOPHILS % (AUTO) 0 % (0-10); EOSINOPHILS # (AUTO) 0.1 10^3/uL (0.0-0.3); EOSINOPHILS % (AUTO) 2 % (0-10); HEMATOCRIT 39 % (35-52); HEMOGLOBIN 12.8 g/dL (11.5-16.0); LYMPHOCYTES # (AUTO) 2.8 10^3/uL (1.0-4.0); LYMPHOCYTES % (AUTO) 41 % (12-44); MEAN CORPUSCULAR HEMOGLOBIN 29 pg (25-34); MEAN CORPUSCULAR HGB CONC 33 g/dL (32-36); MEAN CORPUSCULAR VOLUME 88 fL (80-99); MEAN PLATELET VOLUME 10.7 fL (9.0-12.2); MONOCYTES # (AUTO) 0.5 10^3/uL (0.0-1.0); MONOCYTES % (AUTO) 7 % (0-12); NEUTROPHILS # (AUTO) 3.4 10^3/uL (1.8-7.8); NEUTROPHILS % (AUTO) 49 % (42-75); PLATELET COUNT 210 10^3/uL (130-400); WHITE BLOOD COUNT 6.8 10^3/uL (4.3-11.0)
[2021-07-27 19:14] LABS: POTASSIUM 3.1 MMOL/L (3.6-5.0)
[2021-07-27] MEDS ORDERED: KETOROLAC 60 MG/2 ML VIAL IM ONE (19:15)
[2021-07-27] MEDS ORDERED: KCL 20 MEQ TAB (K-DUR) PO ONE (19:15)
[2021-07-27 19:16] LABS: CALCIUM 9.2 MG/DL (8.5-10.1)
[2021-07-27 19:20] LABS: CREATININE SERUM 0.75 MG/DL (0.60-1.30)
[2021-07-27 19:38] VITALS: BP 108/73
== END 2021-07-27 19:39 | disposition home or self-care (01) ==
LOC: EDUNIT# 18:06 → ER 18:08
DX: Z00.00 Encounter for general adult medical examination without abnormal findings (principal); J45.909 Unspecified asthma, uncomplicated; G40.909 Epilepsy, unspecified, not intractable, without status epilepticus; G43.909 Migraine, unspecified, not intractable, without status migrainosus; F41.9 Anxiety disorder, unspecified; F43.10 Post-traumatic stress disorder, unspecified; F31.9 Bipolar disorder, unspecified; Z79.52 Long term (current) use of systemic steroids; Z79.899 Other long term (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
CPT/HCPCS: 36415; 80048; 84703; 85025

== ENCOUNTER 2021-08-31 19:18 | Emergency (ER) | payer BC ==
[~2021-08-31] VITALS: Ht 168 cm; Wt 59.0 kg
[~2021-08-31 19:18] MED LIST changes: -QUET50TA22; +QUET50TA23
--- NOTE | 2021-08-31 20:40 | ED General ---
General Chief Complaint: General Problems/Pain Stated Complaint: LIGHTHEADED/LIPS NUMB/HEART RACING Nursing Triage Note: PT AMBULATORY TO ED BY POV WITH NON-SPECIFIC COMPLAINTS. History of Present Illness Date Seen by Provider: Aug 31, 2021 Time Seen by Provider: 20:20 Initial Comments 31-year-old female presents for several nonspecific complaints. She states that she has been having pain in her lower abdomen intermittently, she has been evaluated at [facility] for this. She occasionally has discomfort in her lower extremities, is not present at this time. She occasionally has numbness or swelling in her lips or tongue but that is not present at this time either. When asked to specify what she presented to the ED for, she is not able to state a problem. Reports she just isn't sure what is wrong with her and she wants us to tell her. She denies any injuries, chest pain, nausea or vomiting, or shortness of breath. Timing/Duration: Intermittent Associated Systoms: No Chest Pain, No Cough, No Diaphoresis, No Fever/Chills, No Headaches, No Loss of Appetite; Malaise; No Nausea/Vomiting, No Rash, No Seizure, No Shortness of Air, No Syncope, No Weakness Allergies and Home Medications Allergies Coded Allergies: Penicillins (Unverified Allergy, Mild, PT ABLE TO TAKE ANCEF, 03/17/20) diclofenac (Unverified Allergy, Unknown, 03/17/20) divalproex sodium (Verified Allergy, Unknown, 03/17/20) levofloxacin (Verified Adverse Reaction, Intermediate, 03/16/21) STATES MAKES HER FEEL LIKE HER THROAT IS CLOSING, MAKES IT HARD TO SPEAK Patient Home Medication List Home Medication List Reviewed: Yes Cariprazine Hydrochloride (Vraylar) 1.5 Mg Capsule, (Reported) Entered as Reported by: ALLISON CHAPIN on 07/23/212134 Cephalexin (Cephalexin) 500 Mg Tablet, 500 MG PO TID Prescribed by: ISMAEL SOL on 07/23/212147 Clonazepam (Clonazepam) 0.5 Mg Tablet, (Reported) Entered as Reported by: ALLISON CHAPIN on 07/23/212134 Quetiapine Fumarate (Quetiapine Fumarate) 50 Mg Tablet, (Reported) Entered as Reported by: TOM ARDON on 09/19/20 170 Review of Systems Review of Systems Constitutional: see HPI, malaise EENTM: see HPI, no symptoms reported Respiratory: no symptoms reported, see HPI Cardiovascular: no symptoms reported, see HPI Gastrointestinal: no symptoms reported, see HPI Genitourinary: no symptoms reported, see HPI : No Musculoskeletal: no symptoms reported, see HPI Skin: no symptoms reported, see HPI Psychiatric/Neurological: No Symptoms Reported, See HPI All Other Systems Reviewed Negative Unless Noted: Yes Past Vgqfgpx-Dtrehj-Tlwomd Hx Immunizations Up To Date Tetanus Booster (TDap): Less than 5yrs PED Vaccines UTD: Yes First/Initial COVID19 Vaccinat: 02/15/21 Second COVID19 Vaccination Master: 02/15/21 Seasonal Allergies Seasonal Allergies: No Past Medical History Surgeries: Yes (LAPAROTOMY; HYST ; LSO) Abdominal, Adenoidectomy, Appendectomy, Hysterectomy, Oophorectomy, Tonsillectomy Respiratory: Yes Asthma Cardiac: Yes (Hx. 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 Dis [employer] History: Hysterectomy Sexually Transmitted Disease: No HIV/AIDS: No Genitourinary: No Gastrointestinal: No Musculoskeletal: Yes (CHRONIC OPIATE USE; MULITPLE VARIOUS CHRONIC PAIN COMPLAINTS) Degenerate Disk Disease, Arthritis, Back Injury, Scoliosis, Chronic Back Pain Endocrine: No HEENT: Yes (CHRONIC DENTAL PAIN/EXTENSIVE DENTAL DECAY) Cancer: No Psychosocial: Yes (EXTENSIVE PSYCH HISTORY;BENZODIAZEPINE ABUSE) Pseudo Seizures, Anxiety, PTSD, Bipolar, Depression Integumentary: No Blood Disorders: No Adverse Reaction/Blood Tranf: No Family Medical History Reviewed Nursing Family Hx Family history: Hypertension (mother, MGM, and PGM) Heart disease (mother and father) History of - anemia (family Hx of blood transfusions) Infertile Kidney disease (MGM) No Pertinent Family Hx CHRONIC OPIATE AND BENZODIAZEPINE USE/ABUSE Physical Exam Vital Signs Vital Signs - First Documented 08/31/21 19:55 Temp 36.8 Pulse 93 Resp 18 B/P (MAP) 118/79 (92) Pulse Ox 100 O2 Delivery Room Air Capillary Refill : Less Than 3 Seconds Height, Weight, BMI Height: 5'6.00" Weight: 130lbs. 0.0oz. 58.097490vr; 21.00 BMI Method:Stated General Appearance: No Apparent Distress, WD/WN HEENT: PERRL/EOMI, TMs Normal, Normal ENT Inspection, Pharynx Normal Neck: Full Range of Motion, Normal Inspection, Non Tender, Supple Respiratory: Chest Non Tender, Lungs Clear, Normal Breath Sounds Cardiovascular: Regular Rate, Rhythm, No Edema, No Murmur, Normal Peripheral Pulses Gastrointestinal: Normal Bowel Sounds, Non Tender, Soft; No Distended, No Guarding, No Rebound, No Tenderness Extremity: Normal Capillary Refill, Normal Inspection, Normal Range of Motion, Non Tender Neurologic/Psychiatric: Alert, Oriented x3, No Motor/Sensory Deficits, Normal Mood/Affect Skin: Normal Color, Warm/Dry Progress/Results/Core Measures Suspected Sepsis SIRS Temperature: Pulse: 93 Respiratory Rate: 18 Blood Pressure 118 /79 Mean: 92 Results/Orders My Orders Orders - SHAYLA SUTTON Ekg Tracing (08/31/21 20:04) Vital Signs/I&O 08/31/21 08/31/21 19:55 23:06 Temp 36.8 Pulse 93 84 Resp 18 16 B/P (MAP) 118/79 (92) 109/70 Pulse Ox 100 99 O2 Delivery Room Air Capillary Refill : Less Than 3 Seconds Blood Pressure Mean: 92 Progress Note : Time: 20:20 Progress Note Patient seen and evaluated. EKG was obtained as she initially stated she had palpitations to the nurse. No abnormalities noted on the EKG. Discussed at length with the patient that it is difficult to determine what testing needs to be done if she does not have a specific complaint when she presents. Offered to complete labs and reevaluate. Patient declined wanting labs done. She will follow up with [facility] if she needs further healthcare needs. ECG Initial ECG Impression Date: Aug 31, 2021 Initial ECG Impression Time: 20:12 Initial ECG Rate: 89 Initial ECG Rhythm: Normal Sinus Initial ECG Intervals: Normal (DC 170, QRSD 95, QT 361, QTc 440. [place] P 26, QRS 107, T 62.) Initial ECG Impression: Normal Initial ECG Comparisson: Unchanged Departure Impression Primary Impression: General symptom Additional Impression: General medical exam Disposition: HOME, SELF-CARE Condition: Improved Departure-Patient Inst. Decision time for Depature: 20:45 Referrals: [facility] (PCP/Family) Primary Care Physician Patient Instructions: General (DC) Add. Discharge Instructions: Follow-up with your primary care provider in 2 to 3 days if symptoms are not improving or worsen. Return to the emergency department for new, urgent healthcare problems. All discharge instructions reviewed with patient and/or family. Voiced understanding. SHAYLA SUTTON Aug 31, 2021 20:40
[2021-08-31 23:06] VITALS: BP 109/70
== END 2021-08-31 20:56 | disposition home or self-care (01) ==
LOC: EDUNIT# 19:18 → ER 19:19
DX: R10.30 Lower abdominal pain, unspecified (principal); J45.909 Unspecified asthma, uncomplicated; G40.909 Epilepsy, unspecified, not intractable, without status epilepticus; F31.9 Bipolar disorder, unspecified; F41.9 Anxiety disorder, unspecified; Z79.899 Other long term (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
CPT/HCPCS: 93005

== ENCOUNTER → 2021-09-15 | Outpatient (CLI) | payer BC ==
[~2021-09-15] MED LIST changes: +CLIN-144 PO; -CLIN300C12 PO
--- NOTE | 2021-09-15 13:23 | Diagnostic Imaging Report ---
Indication: Right breast lump. No prior mammograms are available for comparison. This is a baseline study. 2-D and 3-D bilateral diagnostic mammography was performed with CAD. Both breasts are heterogeneously dense, limiting the sensitivity of mammography. No mass or malignant-appearing microcalcifications are seen. BB marker is placed at the area palpable abnormality just above the right nipple. No underlying abnormality is seen. The axillae are unremarkable. IMPRESSION: BI-RADS Category 0. No mammographic features suspicious for malignancy are identified. Even so, directed sonographic interrogation of the area of palpable abnormality in the right breast is recommended and will be performed today. ACR BI-RADS Category 0: Incomplete. (Needs additional imaging evaluation). Result letter will be mailed to the patient. Note: At least 10% of breast cancer is not imaged by mammography. Dictated by: Dictated on workstation # [id number]
--- NOTE | 2021-09-15 14:46 | Diagnostic Imaging Report ---
INDICATION: Palpable lump right breast. COMPARISON: Correlation is made with the diagnostic mammogram from earlier this same day. FINDINGS: Sonographic interrogation of the 12 o'clock retroareolar right breast was performed at the area of palpable abnormality. No solid or cystic mass is detected. No sonographic abnormality is seen. IMPRESSION: No sonographic abnormality is detected. ACR BI-RADS Category 1: Negative. Dictated by: Dictated on workstation # [id number]
== END ==
LOC: RAD 12:56
PROVIDERS: ATTEND Obstetrics & Gynecology
DX: N63.10 Unspecified lump in the right breast, unspecified quadrant (principal)
CPT/HCPCS: 76642; 77066; G0279; 77062

== ENCOUNTER 2021-09-27 02:44 | Emergency (ER) | payer BC ==
[~2021-09-27] VITALS: Ht 168 cm; Wt 63.5 kg
[2021-09-27 02:50] VITALS: BP 121/83
[2021-09-27] MEDS ORDERED: cefTRIAXone 1,000 MG VIAL IM ONE (03:00)
[2021-09-27] MEDS ORDERED: KETOROLAC 60 MG/2 ML VIAL IM ONE (03:00)
[2021-09-27] MEDS ORDERED: LIDOCAINE 1% INJ 20 ML 20 ML VIAL INJ ONE (03:00)
--- NOTE | 2021-09-27 03:02 | ED EENT ---
History of Present Illness General Stated Complaint: DENTAL PAIN Source: patient Exam Limitations: no limitations History of Present Illness Date Seen by Provider: Sep 27, 2021 Time Seen by Provider: 02:40 Initial Comments Patient presents ER by private conveyance from home with chief complaint of dental pain started on Monday. She went to see the dentist on Monday and he put her on clindamycin. She feels like the pain and swelling is getting worse. She would like a Toradol shot, Rocephin shot and plans to call the dentist first thing in the morning. No fevers or chills difficulty swallowing. She does not like viscous lidocaine because she states it does not help her Allergies and Home Medications Allergies Coded Allergies: Penicillins (Unverified Allergy, Mild, PT ABLE TO TAKE ANCEF, 03/17/20) diclofenac (Unverified Allergy, Unknown, 03/17/20) divalproex sodium (Verified Allergy, Unknown, 03/17/20) levofloxacin (Verified Adverse Reaction, Intermediate, 03/16/21) STATES MAKES HER FEEL LIKE HER THROAT IS CLOSING, MAKES IT HARD TO SPEAK Patient Home Medication List Home Medication List Reviewed: Yes Cariprazine Hydrochloride (Vraylar) 1.5 Mg Capsule, (Reported) Entered as Reported by: ALLISON CHAPIN on 07/23/212134 Cephalexin (Cephalexin) 500 Mg Tablet, 500 MG PO TID Prescribed by: ISMAEL SOL on 07/23/212147 Clonazepam (Clonazepam) 0.5 Mg Tablet, (Reported) Entered as Reported by: ALLISON CHAPIN on 07/23/212134 Quetiapine Fumarate (Quetiapine Fumarate) 50 Mg Tablet, (Reported) Entered as Reported by: TOM ARDON on 09/19/20 1702 Review of Systems Review of Systems Constitutional: No chills, No diaphoresis Eyes: Denies Blindness, Denies Blurred Vision Ears: Denies Dizziness, Denies Pain Nose: denies clots, denies congestion Mouth: denies clots; pain, swelling Throat: denies pain, denies swelling Respiratory: No cough, No short of breath Cardiovascular: No chest pain, No edema Gastrointestinal: No abdominal pain, No nausea, No vomiting All Other Systems Reviewed Negative Unless Noted: Yes Past Hudgfry-Pmmasp-Qmshyt Hx Patient Social History Tobacco Use?: Yes Smoking Status: Current Everyday Smoker Smokeless Tobacco Frequency: Current Everyday User Use of E-Cig and/or Vaping dev: No Immunizations Up To Date Tetanus Booster (TDap): Less than 5yrs PED Vaccines UTD: Yes First/Initial COVID19 Vaccinat: MARCH 2021 Second COVID19 Vaccination Master: 02/15/21 Third COVID19 Vaccination Date: 02/15/21 Seasonal Allergies Seasonal Allergies: No Past Medical History Surgeries: Yes (LAPAROTOMY; HYST ; LSO) Abdominal, Adenoidectomy, Appendectomy, Hysterectomy, Oophorectomy, Tonsillectomy Respiratory: Yes Asthma Cardiac: Yes (Hx. 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 Sexually Transmitted Disease: No HIV/AIDS: No Genitourinary: No Gastrointestinal: No Musculoskeletal: Yes (CHRONIC OPIATE USE; MULITPLE VARIOUS CHRONIC PAIN COMPL AINTS) Degenerate Disk Disease, Arthritis, Back Injury, Scoliosis, Chronic Back Pain Endocrine: No HEENT: Yes (CHRONIC DENTAL PAIN/EXTENSIVE DENTAL DECAY) Cancer: No Psychosocial: Yes (EXTENSIVE PSYCH HISTORY;BENZODIAZEPINE ABUSE) Pseudo Seizures, Anxiety, PTSD, Bipolar, Depression Integumentary: No Blood Disorders: No Adverse Reaction/Blood Tranf: No Family Medical History Family history: Hypertension (mother, MGM, and PGM) Heart disease (mother and father) History of - anemia (family Hx of blood transfusions) Infertile Kidney disease (MGM) No Pertinent Family Hx CHRONIC OPIATE AND BENZODIAZEPINE USE/ABUSE Physical Exam Height, Weight, BMI Height: 5'6.00" Weight: 130lbs. 0.0oz. 58.012281gd; 20.00 BMI Method:Stated General Appearance: WD/WN, no apparent distress Eyes: bilateral eye normal inspection, bilateral eye PERRL, bilateral eye EOMI Ears: bilateral ear auricle normal, bilateral ear canal normal, bilateral ear TM normal Nose: normal inspection; No active bleeding, No discharge Mouth/Throat: other (Swelling painful left mandible.) Neck: non-tender, normal inspection Cardiovascular: normal peripheral pulses, regular rate, rhythm Respiratory: no respiratory distress, no accessory muscle use Procedures/Interventions Progress Infraalveolar nerve block using a 25-gauge 1 and a 1/2 inch needle. Admixture of half cc of 1% lidocaine and half cc of half percent Marcaine without epi nephrine. Marked the normal landmarks inserted the needle and injected the solution. Patient tolerated procedure well. Progress/Results/Core Measures Results/Orders My Orders Orders - FIORELLA MUNROE Ceftriaxone (Rocephin) (09/27/21 03:00) Lidocaine 1% Inj 20 Ml (Xylocaine 1% Inj (09/27/21 03:00) Ketorolac Injection (Toradol Injection) (09/27/21 03:00) Progress Progress Note #1: Time: 02:58 Progress Note Shot of Rocephin and Toradol. She is okay with doing it in for alveolar nerve block. Declined viscous lidocaine. Progress Note #2: Time: 03:11 Progress Note Patient is experiencing some decreased pain and a little bit of numbness creeping along her mandible. She also states that her left side of her tongue is numb. Departure Impression Primary Impression: Dental abscess Disposition: HOME, SELF-CARE Condition: Stable Departure-Patient Inst. Decision time for Depature: 03:11 Referrals: [facility] [place] (PCP/Family) Primary Care Physician Patient Instructions: Tooth Abscess (DC) Add. Discharge Instructions: Salt water gargles, Orajel, Tylenol 1000 mg every 8 hours and ibuprofen 800 mg every 8 hours as necessary for pain. Heating pads can be helpful for pain. Continue taking antibiotics as prescribed. Follow-up with your dentist. Work/School Note: Work Release Form Date Seen in the Emergency Department: Sep 27, 2021 Return to Work: Sep 28, 2021 Restrictions: No Restrictions FIORELLA MUNROE Sep 27, 2021 03:02
== END 2021-09-27 03:40 | disposition home or self-care (01) ==
LOC: EDUNIT# 02:44 → ER 02:46
DX: K04.7 Periapical abscess without sinus (principal); J45.909 Unspecified asthma, uncomplicated; F41.9 Anxiety disorder, unspecified; F31.9 Bipolar disorder, unspecified; G40.909 Epilepsy, unspecified, not intractable, without status epilepticus; F17.290 Nicotine dependence, other tobacco product, uncomplicated; Z79.899 Other long term (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
CPT/HCPCS: 99284

== ENCOUNTER → 2021-12-21 | Outpatient (CLI) | payer BC ==
[~2021-12-21] MED LIST changes: +CYCL10TA25; -CYCL10TA9; +POTA-179 PO; -POTA20TA15 PO
--- NOTE | 2021-12-21 13:49 | Diagnostic Imaging Report ---
INDICATION: Right-sided jaw pain. COMPARISON: None. FINDINGS: Multiple radiographic views of the mandible were obtained and show no fractures, dislocations, or other acute bony abnormalities. The temporomandibular joint spaces appear appropriate bilaterally. The soft tissues appear unremarkable. No radiopaque foreign bodies are identified. IMPRESSION: Unremarkable radiographic exam of the mandible. Dictated by: Dictated on workstation # [id number]
== END ==
LOC: RAD 12:55
PROVIDERS: ATTEND Nurse Practitioner Family
DX: R68.84 Jaw pain (principal)
CPT/HCPCS: 70100

== ENCOUNTER 2022-03-17 09:21 | Emergency (ER) | payer BC ==
[~2022-03-17] VITALS: Ht 167 cm; Wt 70.0 kg
[~2022-03-17 09:21] MED LIST changes: +LURA40TA2 PO; -LURA40TA3 PO
[2022-03-17 09:58] LABS: BASOPHILS % (AUTO) 0 % (0-10); EOSINOPHILS # (AUTO) 0.2 10^3/uL (0.0-0.3); EOSINOPHILS % (AUTO) 1 % (0-10); HEMATOCRIT 47 % (35-52); HEMOGLOBIN 15.5 g/dL (11.5-16.0); LYMPHOCYTES # (AUTO) 2.8 10^3/uL (1.0-4.0); LYMPHOCYTES % (AUTO) 24 % (12-44); MEAN CORPUSCULAR HEMOGLOBIN 30 pg (25-34); MEAN CORPUSCULAR HGB CONC 33 g/dL (32-36); MEAN CORPUSCULAR VOLUME 89 fL (80-99); MEAN PLATELET VOLUME 10.6 fL (9.0-12.2); MONOCYTES # (AUTO) 0.8 10^3/uL (0.0-1.0); MONOCYTES % (AUTO) 7 % (0-12); NEUTROPHILS # (AUTO) 7.9 10^3/uL (1.8-7.8); NEUTROPHILS % (AUTO) 67 % (42-75); PLATELET COUNT 250 10^3/uL (130-400); WHITE BLOOD COUNT 11.8 10^3/uL (4.3-11.0)
[2022-03-17] MEDS ORDERED: NS IV 1000 ML 1,000 ML IV ONE (10:00)
[2022-03-17] MEDS ORDERED: ASPIRIN 81 MG CHEW (CHILDREN'S ASA) PO ONE (10:00)
[2022-03-17 10:01] LABS: ALBUMIN 4.4 GM/DL (3.2-4.5); POTASSIUM 4.3 MMOL/L (3.6-5.0)
[2022-03-17 10:02] LABS: CALCIUM 9.6 MG/DL (8.5-10.1)
[2022-03-17 10:04] LABS: TOTAL PROTEIN 7.7 GM/DL (6.4-8.2)
[2022-03-17 10:05] LABS: INR 0.9 (0.8-1.4); PROTHROMBIN TIME PATIENT 12.4 SEC (12.2-14.7)
[2022-03-17 10:06] LABS: BILIRUBIN,TOTAL 0.2 MG/DL (0.1-1.0)
[2022-03-17 10:07] LABS: CREATININE SERUM 0.71 MG/DL (0.60-1.30)
--- NOTE | 2022-03-17 10:19 | Diagnostic Imaging Report ---
INDICATION: Left arm weakness and shortness of breath. Feels faint. EXAMINATION: Single view chest 03/17/2022. COMPARISON: 04/04/2021 FINDINGS: The cardiomediastinal silhouette is unremarkable. The pulmonary vasculature is within normal limits. The lungs and pleural spaces are clear. IMPRESSION: No evidence of an acute cardiopulmonary process. Dictated by: Dictated on workstation # [id number]
[2022-03-17] MEDS ORDERED: ORPHENADRINE 60 MG/2 ML (NORFLEX) AMP (ED ONLY) IV STA (10:20)
--- NOTE | 2022-03-17 10:29 | ED Chest Pain ---
General Chief Complaint: Chest Pain Stated Complaint: CP,L ARM NUMBNESS,BRAINFOGGINESS Nursing Triage Note: PT STATES CP, LT ARM WEAKNESS, SOB, AND FEELING FAINT SINCE ABOUT 0500 THIS A.M. Source: patient Exam Limitations: no limitations History of Present Illness Date Seen by Provider: March 17, 2022 Time Seen by Provider: 09:38 Initial Comments Here with complaint of chest pain, left shoulder pain, left arm weakness and feeling foggy or faint since about 5 AM this morning. Denies any recent injury, trauma, surgery, long car rides or plane trips. Denies pain in her legs. Has not had anything like this before. She does take naproxen for back pain. Does report pain is worse with deep breathing and she feels that in the area next to the shoulder blade and her back. Otherwise denies nausea, vomiting or sweating. 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 NTG SL SKIP LOAD DRIVER: No Associated Symptoms: No abdominal pain; back pain; No diaphoresis, No fever/chills, No nausea/vomiting; shortness of breath; No weakness Allergies and Home Medications Allergies Coded Allergies: Penicillins (Unverified Allergy, Mild, PT ABLE TO TAKE ANCEF, 03/17/20) diclofenac (Unverified Allergy, Unknown, 03/17/20) divalproex sodium (Verified Allergy, Unknown, 03/17/20) levofloxacin (Verified Adverse Reaction, Intermediate, 03/16/21) STATES MAKES HER FEEL LIKE HER THROAT IS CLOSING, MAKES IT HARD TO SPEAK Patient Home Medication List Home Medication List Reviewed: Yes Cariprazine Hydrochloride (Vraylar) 1.5 Mg Capsule, (Reported) Entered as Reported by: ALLISON CHAPIN on 07/23/212134 Cephalexin (Cephalexin) 500 Mg Tablet, 500 MG PO TID Prescribed by: ISMAEL SOL on 07/23/212147 Clonazepam (Clonazepam) 0.5 Mg Tablet, (Reported) Entered as Reported by: ALLISON CHAPIN on 07/23/212134 Quetiapine Fumarate (Quetiapine Fumarate) 50 Mg Tablet, (Reported) Entered as Reported by: TOM ARDON on 09/19/20 1702 Review of Systems Review of Systems Constitutional: see HPI; No chills, No fever EENTM: No Nose Pain; Throat Pain Respiratory: Denies Cough; Shortness of Air Cardiovascular: Chest Pain; Denies Edema; Lightheadedness Gastrointestinal: Denies Diarrhea, Denies Nausea, Denies Vomiting Genitourinary: No Symptoms Reported Musculoskeletal: back pain, muscle pain Skin: No change in color, No lesions Psychiatric/Neurological: Denies Headache, Denies Paresthesia All Other Systems Reviewed Negative Unless Noted: Yes Past Ssfqxnc-Wqvhzg-Jmjncl Hx Patient Social History Tobacco Use?: Yes Tobacco type used: Cigarettes Smoking Status: Current Everyday Smoker Substance use?: No Alcohol Use?: No Immunizations Up To Date Tetanus Booster (TDap): Less than 5yrs PED Vaccines UTD: Yes First/Initial COVID19 Vaccinat: MARCH 2021 Second COVID19 Vaccination Master: MARCH 2021 Third COVID19 Vaccination Date: MARCH 2021 COVID19 Vaccine Veterans' Coordinator: [facility] Seasonal Allergies Seasonal Allergies: No Past Medical History Surgery/Hospitalization HX: HYSTERECTOMY, TONSILECTOMY, ENDOMETREOSIS Surgeries: Yes (LAPAROTOMY; HYST ; LSO) Abdominal, Adenoidectomy, Appendectomy, Hysterectomy, Oophorectomy, Tonsillectomy Respiratory: Yes Asthma Cardiac: Yes (Hx. 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 Sexually Transmitted Disease: No HIV/AIDS: No Genitourinary: No Gastrointestinal: No Musculoskeletal: Yes (CHRONIC OPIATE USE; MULITPLE VARIOUS CHRONIC PAIN COMPLAINTS) Degenerate Disk Disease, Arthritis, Back Injury, Scoliosis, Chronic Back Pain Endocrine: No HEENT: Yes (CHRONIC DENTAL PAIN/EXTENSIVE DENTAL DECAY) Cancer: No Psychosocial: Yes (EXTENSIVE PSYCH HISTORY;BENZODIAZEPINE ABUSE) Pseudo Seizures, Anxiety, PTSD, Bipolar, Depression Integumentary: No Blood Disorders: No Adverse Reaction/Blood Tranf: No Family Medical History Reviewed Nursing Family Hx Family history: Hypertension (mother, MGM, and PGM) Heart disease (mother and father) History of - anemia (family Hx of blood transfusions) Infertile Kidney disease (MGM) Physical Exam Vital Signs Vital Signs - First Documented 03/17/22 09:28 Temp 36.8 Pulse 106 Resp 20 B/P (MAP) 129/82 (98) Pulse Ox 100 O2 Delivery Room Air Capillary Refill : Less Than 3 Seconds Height, Weight, BMI Height: 5'6.00" Weight: 130lbs. 0.0oz. 58.624751un; 25.00 BMI Method:Stated General Appearance: No Apparent Distress, WD/WN HEENT: PERRL/EOMI, Pharynx Normal Neck: Non Tender, Supple Respiratory: Lungs Clear, Normal Breath Sounds Cardiovascular: No Murmur, Tachycardia Gastrointestinal: Non Tender, Soft Extremity: Normal Inspection, Normal Range of Motion, Non Tender, No Calf Tenderness, No Pedal Edema, Other (Pain at this point tender and reproducible to the area between the left scapula and spine on the superior portion with muscle spasm noted. This does reproduce some of the pain.) Neurologic/Psychiatric: Alert, Oriented x3 Skin: Normal Color, Warm/Dry Progress/Results/Core Measures Results/Orders Lab Results Laboratory Tests Test 03/17/22 09:35 Range/Units White Blood Count 11.8 H 4.3-11.0 10^3/uL Red Blood Count 5.23 H 3.80-5.11 10^6/uL Hemoglobin 15.5 11.5-16.0 g/dL Hematocrit 47 35-52 % Mean Corpuscular Volume 89 80-99 fL Mean Corpuscular Hemoglobin 30 25-34 pg Mean Corpuscular Hemoglobin Concent 33 32-36 g/dL Red Cell Distribution Width 12.4 10.0-14.5 % Platelet Count 250 130-400 10^3/uL Mean Platelet Volume 10.6 9.0-12.2 fL Immature Granulocyte % (Auto) 0 % Neutrophils (%) (Auto) 67 42-75 % Lymphocytes (%) (Auto) 24 12-44 % Monocytes (%) (Auto) 7 0-12 % Eosinophils (%) (Auto) 1 0-10 % Basophils (%) (Auto) 0 0-10 % Neutrophils # (Auto) 7.9 H 1.8-7.8 10^3/uL Lymphocytes # (Auto) 2.8 1.0-4.0 10^3/uL Monocytes # (Auto) 0.8 0.0-1.0 10^3/uL Eosinophils # (Auto) 0.2 0.0-0.3 10^3/uL Basophils # (Auto) 0.0 0.0-0.1 10^3/uL Immature Granulocyte # (Auto) 0.0 0.0-0.1 10^3/uL Prothrombin Time 12.4 12.2-14.7 SEC INR Comment 0.9 0.8-1.4 Activated Partial Thromboplast Time 32 24-35 SEC D-Dimer 0.68 H 0.00-0.49 UG/ML Sodium Level 139 135-145 MMOL/L Potassium Level 4.3 3.6-5.0 MMOL/L Chloride Level 104 98-107 MMOL/L Carbon Dioxide Level 22 21-32 MMOL/L Anion Gap 13 5-14 MMOL/L Blood Urea Nitrogen 10 7-18 MG/DL Creatinine 0.71 0.60-1.30 MG/DL Estimat Glomerular Filtration Rate 117 BUN/Creatinine Ratio 14 Glucose Level 105 70-105 MG/DL Calcium Level 9.6 8.5-10.1 MG/DL Corrected Calcium 9.3 8.5-10.1 MG/DL Magnesium Level 2.0 1.6-2.4 MG/DL Total Bilirubin 0.2 0.1-1.0 MG/DL Aspartate Amino Transf (AST/SGOT) 17 5-34 U/L Alanine Aminotransferase (ALT/SGPT) 18 0-55 U/L Alkaline Phosphatase 54 40-136 U/L Myoglobin 17.7 10.0-92.0 NG/ML Troponin I < 0.028 <0.028 NG/ML Total Protein 7.7 6.4-8.2 GM/DL Albumin 4.4 3.2-4.5 GM/DL My Orders Orders - REZA CORONADO MD Ekg Tracing (03/17/22 09:29) Cbc With Automated Diff (03/17/22 09:50) Magnesium (03/17/22 09:50) Chest 1 View, Ap/Pa Only (03/17/22 09:50) Comprehensive Metabolic Panel (03/17/22 09:50) Myoglobin Serum (03/17/22 09:50) Protime With Inr (03/17/22 09:50) Partial Thromboplastin Time (03/17/22 09:50) O2 (03/17/22 09:50) Monitor-Rhythm Ecg Trace Only (03/17/22 09:50) Ed Iv/Invasive Line Start (03/17/22 09:50) Fibrin Degradation Products (03/17/22 09:50) Troponin I [place] (03/17/22 09:50) Aspirin Chewable Tablet (Baby Aspirin Ch (03/17/22 10:00) Ns Iv 1000 Ml (Sodium Chloride 0.9%) (03/17/22 10:00) Ct Angio Chest W (03/17/22 10:20) Orphenadrine Inj (Ed Only) (Norflex Inje (03/17/22 10:20) Iohexol Injection (Omnipaque 350 Mg/Ml 1 (03/17/22 10:45) Received Contrast (Hold Metformin- Contr (03/17/22 10:45) Sodium Chloride Flush (Catheter Flush Sy (03/17/22 10:45) Ns (Ivpb) (Sodium Chloride 0.9% Ivpb Bag (03/17/22 10:45) Medications Given in ED Current Medications Medications Dose Ordered Sig/Antonia Route Start Time Stop Time Status Last Admin Dose Admin Aspirin 324 mg ONCE ONCE PO 03/17/22 10:00 03/17/22 10:01 DC 03/17/22 09:56 324 MG Iohexol 100 ml ONCE ONCE IV 03/17/22 10:45 03/17/22 10:47 DC 03/17/22 10:51 64 ML Sodium Chloride 10 ml NEEDED PRN IV 03/17/22 10:45 03/17/22 10:51 10 ML Sodium Chloride 100 ml ONCE ONCE IV 03/17/22 10:45 03/17/22 10:47 DC 03/17/22 10:51 80 ML Sodium Chloride 1,000 ml @ 0 mls/hr Q0M ONCE IV 03/17/22 10:00 03/17/22 10:01 DC 03/17/22 10:06 1,000 MLS/HR Vital Signs/I&O 03/17/22 09:28 Temp 36.8 Pulse 106 Resp 20 B/P (MAP) 129/82 (98) Pulse Ox 100 O2 Delivery Room Air Blood Pressure Mean: 98 Progress Progress Note : Progress Note Seen and evaluated. IV, labs, EKG and chest x-ray ordered. Normal saline 1 L bolus. ASA 324 mg p.o. ordered. Monitor patient. 1025: We will get CT angiogram of the chest due to mildly elevated D-dimer in the setting of tac hycardia. Patient does have some point tenderness to her back between the left scapula and spine in the area of the rhomboids and this may be musculoskeletal in origin but we will rule out PE. Troponin is negative. Norflex 60 mg IV ordered. Monitor patient. 1125: Overall feeling a little better. CT angio is negative. No other indication of cardiac or pulmonary concerns. I do believe this is musculoskeletal in origin and this was discussed with the patient. She will do hisw-eqs-[id number] therapy and I will add muscle relaxer as needed. Discharged home with return precautions. Patient verbalized understanding of instructions and agreement with plan. Initial ECG Impression Date: March 17, 2022 Initial ECG Impression Time: 09:38 Initial ECG Rate: 96 Initial ECG Rhythm: Normal Sinus Comment Sinus rhythm with rate of 96. Rightward axis. No evidence of ST elevation [place]. Similar to previous of 08/31/2021. Interpreted by me. Diagnostic Imaging Diagonstic Imaging: Xray Plain Films/CT/US/NM/MRI: chest Comments [facility] [place] [place] NAME: LISETTE BILLS [facility] REC#: [id number] PT STATUS: REG ER : 1990 PHYSICIAN: REZA CORONADO MD ADMIT DATE: 03/17/22/ER Draft Date of Exam:03/17/22 CHEST 1 VIEW, AP/PA ONLY INDICATION: Left arm weakness and shortness of breath. Feels faint. EXAMINATION: Single view chest 03/17/2022. COMPARISON: 04/04/2021 FINDINGS: The cardiomediastinal silhouette is unremarkable. The pulmonary vasculature is within normal limits. The lungs and pleural spaces are clear. IMPRESSION: No evidence of an acute cardiopulmonary process. Dictated on workstation # [id number] Dict: 03/17/22 1015 Trans: 03/17/22 1019 [id number] Interpreted by: PHUONG CHIANG MD Electronically signed by: Diagonstic Imaging: CT Plain Films/CT/US/NM/MRI: chest Comments [facility] [place] [place] NAME: LISETTE BILLS [facility] REC#: [id number] PT STATUS: REG ER : 1990 PHYSICIAN: REZA CORONADO MD ADMIT DATE: 03/17/22/ER Draft Date of Exam:03/17/22 CT ANGIO CHEST W INDICATION: Left-sided chest pain. TECHNIQUE: Multiple contiguous axial images were obtained through the chest after uneventful bolus administration of intravenous contrast. 3D reconstructed CTA MIP acquisitions were also performed. Auto Exposure Controls were utilized during the CT exam to meet ALARA standards for radiation dose reduction. There is no prior chest CTA for comparison. The pulmonary parenchymal vessels are well-opacified with no CT evidence of pulmonary emboli. The thoracic aorta shows no evidence of aneurysm or dissection. Great vessel origins are patent and without stenosis. There is no mediastinal or hilar adenopathy. There are no enlarged axillary nodes or chest wall lesions. There is no pleural or pericardial fluid. Visualized portions of the upper abdomen appear unremarkable. Lung parenchymal windows demonstrate no focal infiltrates or nodules. IMPRESSION: Negative CTA chest. No evidence of pulmonary embolus or acute aortic pathology. Dictated on workstation # [id number] Dict: 03/17/22 1059 Trans: 03/17/22 1105 DEMETRIO [id number] Interpreted by: MEGAN LAO MD Electronically signed by: Departure Impression Primary Impression: Chest wall pain Additional Impression: Muscle strain of upper back Disposition: 01 HOME, SELF-CARE Condition: Improved Departure-Patient Inst. Decision time for Depature: 11:26 Referrals: [facility] [place] (PCP/Family) Primary Care Physician Patient Instructions: Muscle Strain ED, Chest Pain (DC) Add. Discharge Instructions: All discharge instructions reviewed with patient and/or family. Voiced understanding. You may also take Tylenol/acetaminophen 1000 mg every 8 hours as needed for pain. Continue your naproxen as prescribed. Take other medications as directed. You may use [id number]-[id number] Icy Hot with lidocaine patches or cream, Aspercreme with lidocaine patches or cream, Salonpas with lidocaine patches or cream or similar items to area of concern per package directions. Return for worse pain, weakness, breathing problems, vomiting, fever or other concerns as needed. Scripts Cyclobenzaprine HCl (Cyclobenzaprine HCl) 10 Mg Tablet 10 MG PO Q8H PRN for SPASMS, #15 TAB 0 Refills Prov: REZA CORONADO MD 03/17/22 REZA CORONADO MD March 17, 2022 10:29
[2022-03-17] MEDS ORDERED: HOLD METFORMIN - RECEIVED CONTRAST 20 ML VIAL IV SCH (10:45)
[2022-03-17] MEDS ORDERED: CATHETER FLUSH 10 ML SYR IV PRN (10:45)
[2022-03-17] MEDS ORDERED: NS 100 ML (IVPB) BAG IV ONE (10:45)
[2022-03-17] MEDS ORDERED: IOHEXOL 350 MG/ML 100 ML (OMNIPAQUE 350) VIAL IV ONE (10:45)
--- NOTE | 2022-03-17 11:05 | Diagnostic Imaging Report ---
INDICATION: Left-sided chest pain. TECHNIQUE: Multiple contiguous axial images were obtained through the chest after uneventful bolus administration of intravenous contrast. 3D reconstructed CTA MIP acquisitions were also performed. Auto Exposure Controls were utilized during the CT exam to meet ALARA standards for radiation dose reduction. There is no prior chest CTA for comparison. The pulmonary parenchymal vessels are well-opacified with no CT evidence of pulmonary emboli. The thoracic aorta shows no evidence of aneurysm or dissection. Great vessel origins are patent and without stenosis. There is no mediastinal or hilar adenopathy. There are no enlarged axillary nodes or chest wall lesions. There is no pleural or pericardial fluid. Visualized portions of the upper abdomen appear unremarkable. Lung parenchymal windows demonstrate no focal infiltrates or nodules. IMPRESSION: Negative CTA chest. No evidence of pulmonary embolus or acute aortic pathology. Dictated by: Dictated on workstation # [id number]
[2022-03-17] MEDS ORDERED: CYCL10TA25 PO (11:27)
[2022-03-17 11:32] VITALS: BP 123/82
== END 2022-03-17 11:32 | disposition home or self-care (01) ==
LOC: EDUNIT# 09:21 → ER 09:24
DX: S29.012A Strain of muscle and tendon of back wall of thorax, initial encounter (principal); R07.89 Other chest pain; F17.210 Nicotine dependence, cigarettes, uncomplicated; X58.XXXA Exposure to other specified factors, initial encounter
CPT/HCPCS: 36415; 71045; 71275; 80053; 83735; 83874; 84484; 85025; 85379; 85610; 85730; 93005; 93041

== ENCOUNTER 2022-05-11 20:06 | Emergency (ER) | payer BC ==
[~2022-05-11 20:06] MED LIST changes: +CYCL10TA25 PO
--- NOTE | 2022-05-11 20:40 | ED EENT ---
History of Present Illness General Chief Complaint: Ear Problems Stated Complaint: EAR PAIN Nursing Triage Note: TO ED VIA POV AND AMBULATORY TO FT1 WITH C/O BILATERAL EAR INFECTIONS AND STARTED SECOND ROUND OF ANTIBX YESTERDAY, INCLUDING CIPRO GTTS AND PO CEFDINIR. 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 Source: patient Exam Limitations: no limitations (SYLVESTER PHILLIPS) History of Present Illness Date Seen by Provider: May 11, 2022 Time Seen by Provider: 20:37 Initial Comments Patient is a 31-year-old female presents ED with left ear pain. Patient states she has had ear pain for the past 2 weeks. Patient states she was placed on a eardrop 2 weeks ago. She started Cipro and cefdinir yesterday. Has been taking anti-inflammatories for pain without much improvement. She reports some muffling sounds in her left ear with some decreased hearing. She reports dizziness. she reports nausea without vomiting. She reports some associated dizziness. She denies of any trauma. She reports swimming before thie ear pain but denies swimming since. denies of any recent change in medication before the ear pain. (SYLVESTER PHILLIPS) Allergies and Home Medications Allergies Coded Allergies: Penicillins (Unverified Allergy, Mild, PT ABLE TO TAKE ANCEF, 03/17/20) diclofenac (Unverified Allergy, Unknown, 03/17/20) divalproex sodium (Verified Allergy, Unknown, 03/17/20) levofloxacin (Verified Adverse Reaction, Intermediate, 03/16/21) STATES MAKES HER FEEL LIKE HER THROAT IS CLOSING, MAKES IT HARD TO SPEAK Patient Home Medication List Home Medication List Reviewed: Yes (SYVLESTER PHILLIPS) Cariprazine Hydrochloride (Vraylar) 1.5 Mg Capsule, (Reported) Entered as Reported by: ALLISON CHAPIN on 07/23/212134 Cephalexin (Cephalexin) 500 Mg Tablet, 500 MG PO TID Prescribed by: ISMAEL SOL on 07/23/212147 Clonazepam (Clonazepam) 0.5 Mg Tablet, (Reported) Entered as Reported by: ALLISON CHAPIN on 07/23/212134 Cyclobenzaprine HCl (Cyclobenzaprine HCl) 10 Mg Tablet, 10 MG PO Q8H PRN for SPASMS Prescribed by: REZA CORONADO on 03/17/22 1127 Hydrocodone/Acetaminophen (Hydrocodone-Acetamin 5-325 mg) 5 Mg-325 Mg Tablet, 1 TAB PO Q4H PRN for PAIN-MODERATE (5-7) Prescribed by: VERONICA CHAVARRIA on 05/11/22 2148 Quetiapine Fumarate (Quetiapine Fumarate) 50 Mg Tablet, (Reported) Entered as Reported by: TOM ARDON on 09/19/20 1702 Review of Systems Review of Systems Constitutional: No chills, No diaphoresis, No malaise, No weakness Eyes: Denies Drainage, Denies Decreased Acuity Ears: Denies Dizziness, Denies Pain, Denies Clear Discharge; Purulent Discharge Nose: denies clots, denies congestion Mouth: denies clots, denies loose teeth, denies bloody discharge, denies clear discharge Throat: denies pain, denies swelling Respiratory: No cough Cardiovascular: No chest pain Gastrointestinal: No abdominal pain, No diarrhea, No nausea, No vomiting Musculoskeletal: No back pain, No joint pain Skin: No change in color, No change in hair/nails (SYLVESTER PHILLIPS) All Other Systems Reviewed Negative Unless Noted: Yes (SYLVESTER PHILLIPS) Past Ghrbswn-Fhdjwx-Tmdrnj Hx Patient Social History Tobacco Use?: Yes Tobacco type used: Cigarettes Smoking Status: Current Everyday Smoker (SYLVESTER PHILLIPS) Immunizations Up To Date Tetanus Booster (TDap): Less than 5yrs PED Vaccines UTD: Yes First/Initial COVID19 Vaccinat: MARCH 2021 Second COVID19 Vaccination Master: MARCH 2021 Third COVID19 Vaccination Date: MARCH 2021 (SYLVESTER PHILLIPS) Seasonal Allergies Seasonal Allergies: No (SYLVESTER PIHLLIPS) Past Medical History Surgery/Hospitalization HX: HYSTERECTOMY, TONSILECTOMY, ENDOMETREOSIS Surgeries: Yes (LAPAROTOMY; HYST ; LSO) Abdominal, Adenoidectomy, Appendectomy, Hysterectomy, Oophorectomy, Tonsillectomy Respiratory: Yes Asthma Cardiac: Yes (Hx. 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 Dis GM History: Hysterectomy Sexually Transmitted Disease: No HIV/AIDS: No Genitourinary: No Gastrointestinal: No Musculoskeletal: Yes (CHRONIC OPIATE USE; MULITPLE VARIOUS CHRONIC PAIN COMPLAINTS) Degenerate Disk Disease, Arthritis, Back Injury, Scoliosis, Chronic Back Pain Endocrine: No HEENT: Yes (CHRONIC DENTAL PAIN/EXTENSIVE DENTAL DECAY) Cancer: No Psychosocial: Yes (EXTENSIVE PSYCH HISTORY;BENZODIAZEPINE ABUSE) Pseudo Seizures, Anxiety, PTSD, Bipolar, Depression Integumentary: No Blood Disorders: No Adverse Reaction/Blood Tranf: No (SYLVESTER PHILLIPS) Family Medical History Family history: Hypertension (mother, MGM, and PGM) Heart disease (mother and father) History of - anemia (family Hx of blood transfusions) Infertile Kidney disease (MGM) Physical Exam Vital Signs Vital Signs - First Documented 05/11/22 20:12 Temp 36.8 Pulse 99 Resp 16 B/P (MAP) 130/84 (99) Pulse Ox 97 O2 Delivery Room Air (EAST JORDAN,MIRANDA K ) Height, Weight, BMI Height: 5'6.00" Weight: 130lbs. 0.0oz. 58.816953gw; 25.00 BMI Method:Stated General Appearance: WD/WN, no apparent distress Eyes: bilateral eye normal inspection, bilateral eye PERRL, bilateral eye abnormal EOM Ears: left ear discharge, left ear erythema, left ear swelling; bilateral ear other (Left outer ear tenderness on palpation. Mild swelling without erythema located to the mastoid) Nose: normal inspection Mouth/Throat: normal mouth inspection, pharynx normal, dental tenderness Neck: non-tender, full range of motion, supple Cardiovascular: regular rate, rhythm, no edema, no gallop, no JVD Respiratory: chest non-tender, lungs clear, normal breath sounds, no respiratory distress, no accessory muscle use Gastrointestinal: normal bowel sounds, non tender, soft Skin: normal color, warm/dry (SYLVESTER PHILLIPS) Progress/Results/Core Measures Results/Orders Lab Results Laboratory Tests Test 05/11/22 21:04 Range/Units White Blood Count 12.0 H 4.3-11.0 10^3/uL Red Blood Count 4.57 3.80-5.11 10^6/uL Hemoglobin 13.3 11.5-16.0 g/dL Hematocrit 41 35-52 % Mean Corpuscular Volume 89 80-99 fL Mean Corpuscular Hemoglobin 29 25-34 pg Mean Corpuscular Hemoglobin Concent 33 32-36 g/dL Red Cell Distribution Width 12.7 10.0-14.5 % Platelet Count 291 130-400 10^3/uL Mean Platelet Volume 9.7 9.0-12.2 fL Immature Granulocyte % (Auto) 0 % Neutrophils (%) (Auto) 59 42-75 % Lymphocytes (%) (Auto) 29 12-44 % Monocytes (%) (Auto) 9 0-12 % Eosinophils (%) (Auto) 3 0-10 % Basophils (%) (Auto) 0 0-10 % Neutrophils # (Auto) 7.1 1.8-7.8 10^3/uL Lymphocytes # (Auto) 3.4 1.0-4.0 10^3/uL Monocytes # (Auto) 1.1 H 0.0-1.0 10^3/uL Eosinophils # (Auto) 0.3 0.0-0.3 10^3/uL Basophils # (Auto) 0.0 0.0-0.1 10^3/uL Immature Granulocyte # (Auto) 0.0 0.0-0.1 10^3/uL Sodium Level 142 135-145 MMOL/L Potassium Level 3.6 3.6-5.0 MMOL/L Chloride Level 106 98-107 MMOL/L Carbon Dioxide Level 24 21-32 MMOL/L Anion Gap 12 5-14 MMOL/L Blood Urea Nitrogen 16 7-18 MG/DL Creatinine 0.85 0.60-1.30 MG/DL Estimat Glomerular Filtration Rate 94 BUN/Creatinine Ratio 19 Glucose Level 95 70-105 MG/DL Calcium Level 9.3 8.5-10.1 MG/DL Corrected Calcium 9.1 8.5-10.1 MG/DL Total Bilirubin 0.2 0.1-1.0 MG/DL Aspartate Amino Transf (AST/SGOT) 18 5-34 U/L Alanine Aminotransferase (ALT/SGPT) 18 0-55 U/L Alkaline Phosphatase 60 40-136 U/L Total Protein 7.3 6.4-8.2 GM/DL Albumin 4.2 3.2-4.5 GM/DL (CLAUDY,MIRANDA K DO) Medications Given in ED Current Medications Medications Dose Ordered Sig/Antonia Route Start Time Stop Time Status Last Admin Dose Admin Acetaminophen/ Hydrocodone Bitart 1 ea ONCE ONCE PO 05/11/22 21:45 05/11/22 21:46 DC 05/11/22 22:06 1 EA Iohexol 100 ml ONCE ONCE IV 05/11/22 20:45 05/11/22 20:46 DC 05/11/22 21:19 75 ML Sodium Chloride 100 ml ONCE ONCE IV 05/11/22 20:45 05/11/22 20:46 DC 05/11/22 21:19 80 ML (CLAUDYARSENA K DO) Vital Signs/I&O 05/11/22 05/11/22 20:12 22:08 Temp 36.8 36.8 Pulse 99 87 Resp 16 16 B/P (MAP) 130/84 (99) 132/82 Pulse Ox 97 98 O2 Delivery Room Air Room Air (CLAUDYARSENA K DO) Blood Pressure Mean: 99 Departure Communication (PCP) Patient appears to have otitis externa with otitis media. Started on cefdinir and Cipro yesterday. She initially received eardrops 2 weeks ago without much improvement. She did swim previously before the ear infection. No trauma. Started developing worsening ear pain with pain to the left posterior ear around the mastoid. Rule out mastoiditis CT scan was ordered. Mastoid air cells are well aerated. Evidence of a otitis externa and media. Recommend continue with the cefdinir and the Cipro drops as she has not been on the medication for longer than a day.. She is allergic to penicillins. Provide ENT outpatient follow-up. Discussed ear wick. Avoid swimming. She denies of any medication that was changed before the area infection. If any worsening symptoms return back to ED for further evaluation such as swelling redness to the left outer ear around the mastoid, face. Patient agrees with plan of action (SYLVESTER PHILLIPS) Impression Primary Impression: Otitis externa Disposition: 01 HOME, SELF-CARE Condition: Stable Departure-Patient Inst. Decision time for Depature: 21:46 (SYLVESTER PHILLIPS) Referrals: DAKSHA MARTINEZ MD [facility] (PCP/Family) Primary Care Physician Patient Instructions: Outer Ear Infection (DC) Scripts Hydrocodone/Acetaminophen (Hydrocodone-Acetamin 5-325 mg) 5 Mg-325 Mg Tablet 1 TAB PO Q4H PRN for PAIN-MODERATE (5-7), #4 TAB Prov: SYLVESTER PHILLIPS 05/11/22 ATTENDING PHYSICIAN NOTE: I WAS PHYSICALLY PRESENT ER PHYSICIAN, BUT I WAS NOT INVOLVED IN ANY DECISION MAKING OR ANY CARE OF PT. (MIRANDA LOCO DO) SYLVESTER PHILLIPS May 11, 2022 20:39 MIRANDA LOCO DO May 12, 2022 01:13
[2022-05-11] MEDS ORDERED: IOHEXOL 350 MG/ML 100 ML (OMNIPAQUE 350) VIAL IV ONE (20:45)
[2022-05-11] MEDS ORDERED: NS 100 ML (IVPB) BAG IV ONE (20:45)
[2022-05-11 21:07] LABS: BASOPHILS % (AUTO) 0 % (0-10); EOSINOPHILS # (AUTO) 0.3 10^3/uL (0.0-0.3); EOSINOPHILS % (AUTO) 3 % (0-10); HEMATOCRIT 41 % (35-52); HEMOGLOBIN 13.3 g/dL (11.5-16.0); LYMPHOCYTES # (AUTO) 3.4 10^3/uL (1.0-4.0); LYMPHOCYTES % (AUTO) 29 % (12-44); MEAN CORPUSCULAR HEMOGLOBIN 29 pg (25-34); MEAN CORPUSCULAR HGB CONC 33 g/dL (32-36); MEAN CORPUSCULAR VOLUME 89 fL (80-99); MEAN PLATELET VOLUME 9.7 fL (9.0-12.2); MONOCYTES # (AUTO) 1.1 10^3/uL (0.0-1.0); MONOCYTES % (AUTO) 9 % (0-12); NEUTROPHILS # (AUTO) 7.1 10^3/uL (1.8-7.8); NEUTROPHILS % (AUTO) 59 % (42-75); PLATELET COUNT 291 10^3/uL (130-400)
[2022-05-11 21:18] LABS: ALBUMIN 4.2 GM/DL (3.2-4.5); POTASSIUM 3.6 MMOL/L (3.6-5.0)
[2022-05-11 21:19] LABS: CALCIUM 9.3 MG/DL (8.5-10.1)
[2022-05-11 21:20] LABS: TOTAL PROTEIN 7.3 GM/DL (6.4-8.2)
[2022-05-11 21:22] LABS: BILIRUBIN,TOTAL 0.2 MG/DL (0.1-1.0)
[2022-05-11 21:24] LABS: CREATININE SERUM 0.85 MG/DL (0.60-1.30)
--- NOTE | 2022-05-11 21:34 | Diagnostic Imaging Report ---
INDICATION: History of bilateral ear infections, ear pain. TECHNIQUE: After intravenous administration of contrast, axial images were obtained through the face and reformatted into coronal and sagittal planes. Auto Exposure Controls were utilized during the CT exam to meet ALARA standards for radiation dose reduction. COMPARISON: There is no prior study for comparison. FINDINGS: Orbital contents appear unremarkable. Facial soft tissue structures show no overt edema. The paranasal sinuses show no fluid levels or mucosal thickening. There is mild deviation of the nasal septum toward the left. A prominent nasal septal bone spur is seen on the left side. Sphenoid sinuses and ethmoid air cells and frontal sinuses are clear. Visualized portions of the mastoid air cells appear well aerated. The mastoid air cells are not completely included on the study. There is abnormal opacification of inner ear structures on the left side. There is soft tissue thickening in the left external auditory canal. IMPRESSION: The paranasal sinuses appear clear. Visualized portions of the mastoid air cells appear well aerated, the entirety of the mastoid air cells are not included on this study. There is some slight fluid in the left inner ear adjacent to the ossicles. There is soft tissue thickening in the left external auditory canal. Dictated by: Dictated on workstation # [id number]
[2022-05-11] MEDS ORDERED: HYDROcodone/APAP 5 MG/325 MG (LORTAB) TAB PO ONE (21:45)
[2022-05-11] MEDS ORDERED: ACHD5005 PO (21:48)
[2022-05-11 22:08] VITALS: BP 132/82
== END 2022-05-11 22:08 | disposition home or self-care (01) ==
LOC: EDUNIT# 20:06 → ER 20:08
DX: H60.92 Unspecified otitis externa, left ear (principal); F17.210 Nicotine dependence, cigarettes, uncomplicated
CPT/HCPCS: 36415; 70487; 80053; 85025

== ENCOUNTER 2022-07-18 18:07 | Emergency (ER) | payer BC ==
[~2022-07-18] VITALS: Ht 167.7 cm; Wt 77.0 kg
[2022-07-18 18:48] LABS: BILIRUBIN,URINE NEGATIVE (NEGATIVE); CLARITY,URINE CLEAR; COLOR,URINE YELLOW; GLUCOSE, URINE (UA) NEGATIVE (NEGATIVE); KETONES,URINE NEGATIVE (NEGATIVE); LEUKOCYTE ESTERASE ,URINE NEGATIVE (NEGATIVE); NITRITE,URINE NEGATIVE (NEGATIVE); PROTEIN,URINE TRACE (NEGATIVE)
[2022-07-18 18:54] LABS: BACTERIA,URINE NEGATIVE /HPF; SQUAMOUS EPITHELIAL CELL,UR 0-2 /HPF
[2022-07-18] MEDS ORDERED: ONDANSETRON 4 MG/2 ML (SDV) Z0FRAN IVP ONE (19:30)
[2022-07-18] MEDS ORDERED: LACTATED RINGERS 1,000 ML IV ONE (19:30)
[2022-07-18] MEDS ORDERED: LIDOCAINE 2% VISCOUS 15 ML UDC PO ONE (19:30)
[2022-07-18] MEDS ORDERED: ANTACID SUSP 30 ML UDC (MYLANTA) PO ONE (19:30)
[2022-07-18 19:52] LABS: BASOPHILS % (AUTO) 0 % (0-10); EOSINOPHILS # (AUTO) 0.2 10^3/uL (0.0-0.3); EOSINOPHILS % (AUTO) 2 % (0-10); HEMATOCRIT 41 % (35-52); LYMPHOCYTES # (AUTO) 4.1 10^3/uL (1.0-4.0); LYMPHOCYTES % (AUTO) 43 % (12-44); MEAN CORPUSCULAR HEMOGLOBIN 29 pg (25-34); MEAN CORPUSCULAR HGB CONC 34 g/dL (32-36); MEAN CORPUSCULAR VOLUME 86 fL (80-99); MEAN PLATELET VOLUME 10.2 fL (9.0-12.2); MONOCYTES # (AUTO) 0.8 10^3/uL (0.0-1.0); MONOCYTES % (AUTO) 8 % (0-12); NEUTROPHILS # (AUTO) 4.4 10^3/uL (1.8-7.8); NEUTROPHILS % (AUTO) 46 % (42-75); PLATELET COUNT 254 10^3/uL (130-400); WHITE BLOOD COUNT 9.5 10^3/uL (4.3-11.0)
[2022-07-18] MEDS ORDERED: KETOROLAC 30 MG/ML VIAL IVP ONE (20:00)
[2022-07-18 20:07] LABS: ALBUMIN 4.2 GM/DL (3.2-4.5); POTASSIUM 3.3 MMOL/L (3.6-5.0)
[2022-07-18 20:08] LABS: CALCIUM 8.9 MG/DL (8.5-10.1)
[2022-07-18 20:10] LABS: TOTAL PROTEIN 7.1 GM/DL (6.4-8.2)
[2022-07-18 20:11] LABS: BILIRUBIN,TOTAL 0.2 MG/DL (0.1-1.0)
[2022-07-18 20:13] LABS: CREATININE SERUM 0.75 MG/DL (0.60-1.30)
[2022-07-18 20:16] LABS: MAGNESIUM 1.8 MG/DL (1.6-2.4)
[2022-07-18] MEDS ORDERED: ONDA4TAB11 SL (20:38)
[2022-07-18] MEDS ORDERED: FAMO-119 PO (20:38)
--- NOTE | 2022-07-18 20:38 | ED General ---
General Chief Complaint: Abdominal/GI Problems Stated Complaint: ABDOMINAL PAIN Nursing Triage Note: PT AMB TO ED BY POV WITH C/O LUQ PAIN, MENDEZ, NAUSEA, DECREASED APPETITE. PT TESTED POSITIVE FOR MONO ON MONDAY. Source of Information: Patient Exam Limitations: No Limitations History of Present Illness Date Seen by Provider: Jul 18, 2022 Time Seen by Provider: 18:14 Allergies and Home Medications Allergies Coded Allergies: Penicillins (Unverified Allergy, Mild, PT ABLE TO TAKE ANCEF, 03/17/20) divalproex sodium (Verified Allergy, Unknown, 03/17/20) levofloxacin (Verified Adverse Reaction, Intermediate, 03/16/21) STATES MAKES HER FEEL LIKE HER THROAT IS CLOSING, MAKES IT HARD TO SPEAK diclofenac (Unverified Adverse Reaction, Unknown, Nausea, 07/18/22) GI upset, "Stomach problems" Patient Home Medication List Cariprazine Hydrochloride (Vraylar) 1.5 Mg Capsule, (Reported) Entered as Reported by: ALLISON CHAPIN on 07/23/212134 Cephalexin (Cephalexin) 500 Mg Tablet, 500 MG PO TID Prescribed by: ISMAEL SOL on 07/23/212147 Clonazepam (Clonazepam) 0.5 Mg Tablet, (Reported) Entered as Reported by: ALLISON CHAPIN on 07/23/212134 Cyclobenzaprine HCl (Cyclobenzaprine HCl) 10 Mg Tablet, 10 MG PO Q8H PRN for SPASMS Prescribed by: REZA CORONADO on 03/17/22 112 Famotidine (Pepcid) 20 Mg Tablet, 20 MG PO BID Prescribed by: CALVIN LAMBERT on 07/18/222037 Hydrocodone/Acetaminophen (Hydrocodone-Acetamin 5-325 mg) 5 Mg-325 Mg Tablet, 1 TAB PO Q4H PRN for PAIN-MODERATE (5-7) Prescribed by: VERONICA CHAVARRIA on 05/11/222147 Ondansetron (Ondansetron Odt) 4 Mg Tab.rapdis, 4 MG SL Q4H PRN for NAUSEA/VOMITING Prescribed by: CALVIN LAMBERT on 07/18/222037 Quetiapine Fumarate (Quetiapine Fumarate) 50 Mg Tablet, (Reported) Entered as Reported by: TOM ARDON on 09/19/20 1702 Past Zzdxyuq-Rfgfsy-Poeobv Hx Patient Social History Tobacco Use?: Yes Tobacco type used: Cigarettes Smoking Status: Current Everyday Smoker Use of E-Cig and/or Vaping dev: No Substance use?: No Alcohol Use?: No Pt feels they are or have been: No Immunizations Up To Date Tetanus Booster (TDap): Less than 5yrs PED Vaccines UTD: Yes Influenza Vaccine Up-to-Date: No; Not Current First/Initial COVID19 Vaccinat: MARCH 2021 Second COVID19 Vaccination Master: MARCH 2021 Third COVID19 Vaccination Date: MARCH 2021 Seasonal Allergies Seasonal Allergies: No Past Medical History Surgery/Hospitalization HX: HYSTERECTOMY, TONSILECTOMY, APPENDECTOMY, ENDOMETREOSIS, ANXIETY Surgeries: Yes (LAPAROTOMY; HYST ; LSO) Abdominal, Adenoidectomy, Appendectomy, Hysterectomy, Oophorectomy, Tonsillectomy Respiratory: Yes Asthma Cardiac: Yes (Hx. 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 Sexually Transmitted Disease: No HIV/AIDS: No Genitourinary: No Gastrointestinal: No Musculoskeletal: Yes (CHRONIC OPIATE USE; MULITPLE VARIOUS CHRONIC PAIN COMPLAINTS) Degenerate Disk Disease, Arthritis, Back Injury, Scoliosis, Chronic Back Pain Endocrine: No HEENT: Yes (CHRONIC DENTAL PAIN/EXTENSIVE DENTAL DECAY) Cancer: No Psychosocial: Yes (EXTENSIVE PSYCH HISTORY;BENZODIAZEPINE ABUSE) Pseudo Seizures, Anxiety, PTSD, Bipolar, Depression Integumentary: No Blood Disorders: No Adverse Reaction/Blood Tranf: No Family Medical History Family history: Hypertension (mother, MGM, and PGM) Heart disease (mother and father) History of - anemia (family Hx of blood transfusions) Infertile Kidney disease (MGM) Physical Exam Vital Signs Vital Signs - First Documented 07/18/22 18:28 Temp 37.1 Pulse 101 Resp 16 B/P (MAP) 146/90 (108) Pulse Ox 99 O2 Delivery Room Air Capillary Refill : Less Than 3 Seconds Height, Weight, BMI Height: 5'6.00" Weight: 130lbs. 0.0oz. 58.863352ff; 27.00 BMI Method:Stated Progress/Results/Core Measures Suspected Sepsis SIRS Temperature: Pulse: 101 Respiratory Rate: 16 Laboratory Tests 07/18/22 19:40: White Blood Count 9.5 Blood Pressure 146 /90 Mean: 108 Laboratory Tests 07/18/22 19:40: Creatinine 0.75, Platelet Count 254, Total Bilirubin 0.2 Results/Orders Lab Results Laboratory Tests Test 07/18/22 18:30 07/18/22 19:40 Range/Units Urine Color YELLOW Urine Clarity CLEAR Urine pH 6.0 5-9 Urine Specific [place] >=1.030 1.016-1.022 Urine Protein TRACE H NEGATIVE Urine Glucose (UA) NEGATIVE NEGATIVE Urine Ketones NEGATIVE NEGATIVE Urine Nitrite NEGATIVE NEGATIVE Urine Bilirubin NEGATIVE NEGATIVE Urine Urobilinogen 0.2 < = 1.0 MG/DL Urine Leukocyte Esterase NEGATIVE NEGATIVE Urine RBC (Auto) NEGATIVE NEGATIVE Urine RBC NONE /HPF Urine WBC NONE /HPF Urine Squamous Epithelial Cells 0-2 /HPF Urine Crystals NONE /LPF Urine Bacteria NEGATIVE /HPF Urine Casts NONE /LPF Urine Mucus MODERATE H /LPF Urine Culture Indicated NO White Blood Count 9.5 4.3-11.0 10^3/uL Red Blood Count 4.80 3.80-5.11 10^6/uL Hemoglobin 14.0 11.5-16.0 g/dL Hematocrit 41 35-52 % Mean Corpuscular Volume 86 80-99 fL Mean Corpuscular Hemoglobin 29 25-34 pg Mean Corpuscular Hemoglobin Concent 34 32-36 g/dL Red Cell Distribution Width 12.2 10.0-14.5 % Platelet Count 254 130-400 10^3/uL Mean Platelet Volume 10.2 9.0-12.2 fL Immature Granulocyte % (Auto) 0 % Neutrophils (%) (Auto) 46 42-75 % Lymphocytes (%) (Auto) 43 12-44 % Monocytes (%) (Auto) 8 0-12 % Eosinophils (%) (Auto) 2 0-10 % Basophils (%) (Auto) 0 0-10 % Neutrophils # (Auto) 4.4 1.8-7.8 10^3/uL Lymphocytes # (Auto) 4.1 H 1.0-4.0 10^3/uL Monocytes # (Auto) 0.8 0.0-1.0 10^3/uL Eosinophils # (Auto) 0.2 0.0-0.3 10^3/uL Basophils # (Auto) 0.0 0.0-0.1 10^3/uL Immature Granulocyte # (Auto) 0.0 0.0-0.1 10^3/uL Sodium Level 142 135-145 MMOL/L Potassium Level 3.3 L 3.6-5.0 MMOL/L Chloride Level 108 H 98-107 MMOL/L Carbon Dioxide Level 23 21-32 MMOL/L Anion Gap 11 5-14 MMOL/L Blood Urea Nitrogen 16 7-18 MG/DL Creatinine 0.75 0.60-1.30 MG/DL Estimat Glomerular Filtration Rate 109 BUN/Creatinine Ratio 21 Glucose Level 91 70-105 MG/DL Calcium Level 8.9 8.5-10.1 MG/DL Corrected Calcium 8.7 8.5-10.1 MG/DL Magnesium Level 1.8 1.6-2.4 MG/DL Total Bilirubin 0.2 0.1-1.0 MG/DL Aspartate Amino Transf (AST/SGOT) 17 5-34 U/L Alanine Aminotransferase (ALT/SGPT) 18 0-55 U/L Alkaline Phosphatase 50 40-136 U/L C-Reactive Protein High Sensitivity 0.05 0.00-0.50 MG/DL Total Protein 7.1 6.4-8.2 GM/DL Albumin 4.2 3.2-4.5 GM/DL Lipase 29 8-78 U/L My Orders Maureen - CALVIN JACOBO MD Ua Culture If Indicated (07/18/22 18:14) Cbc With Automated Diff (07/18/22 19:26) Comprehensive Metabolic Panel (07/18/22 19:26) Hs C Reactive Protein (07/18/22 19:26) Lipase (07/18/22 19:26) Ed Iv/Invasive Line Start (07/18/22 19:26) Lactated Ringers (Lr 1000 Ml Iv Solution (07/18/22 19:30) Ondansetron Injection (Zofran Injectio (07/18/22 19:30) Lidocaine 2% Viscous 15 Ml (Xylocaine Vi (07/18/22 19:30) Antacid Suspension (Mylanta Suspension (07/18/22 19:30) Magnesium (07/18/22 19:29) Ketorolac Injection (Toradol Injection) (07/18/22 20:00) Medications Given in ED Current Medications Medications Dose Ordered Sig/Antonia Route Start Time Stop Time Status Last Admin Dose Admin Al Hydrox/Mg Hydrox/Simethicone 30 ml ONCE ONCE PO 07/18/22 19:30 07/18/22 19:31 DC 07/18/22 19:40 30 ML Ketorolac Tromethamine 15 mg ONCE ONCE IVP 07/18/22 20:00 07/18/22 20:02 DC 07/18/22 20:14 15 MG Lactated Ringer's 1,000 ml @ 0 mls/hr Q0M ONCE IV 07/18/22 19:30 07/18/22 19:31 DC 07/18/22 19:40 0 MLS/HR Lidocaine HCl 15 ml ONCE ONCE PO 07/18/22 19:30 07/18/22 19:31 DC 07/18/22 19:40 15 ML Ondansetron HCl 8 mg ONCE ONCE IVP 07/18/22 19:30 07/18/22 19:31 DC 07/18/22 19:41 8 MG Vital Signs/I&O 07/18/22 18:28 Temp 37.1 Pulse 101 Resp 16 B/P (MAP) 146/90 (108) Pulse Ox 99 O2 Delivery Room Air Capillary Refill : Less Than 3 Seconds Blood Pressure Mean: 108 Departure Impression Primary Impression: Mononucleosis Qualified Codes: B27.99 - Infectious mononucleosis, unspecified with other complication Additional Impressions: Left sided abdominal pain Headache Qualified Codes: R51.9 - Headache, unspecified Nausea Disposition: 01 HOME, SELF-CARE Condition: Improved Departure-Patient Inst. Decision time for Depature: 20:35 Referrals: [facility] [place] (PCP/Family) Primary Care Physician Patient Instructions: Mononucleosis Add. Discharge Instructions: Drink plenty of clear liquids to stay well-hydrated. Gradually advance diet with small quantities of bland food as tolerated. Use the Zofran (ondansetron) as prescribed for nausea and vomiting. Use of an antacid such as Pepcid may also be helpful in reducing upset stomach. Prescriptions are provided for both. You may take Tylenol (acetaminophen) up to 1000 mg every 6 hours as needed and/or ibuprofen up to 600 mg every 6 hours as needed for headache or pain. Take ibuprofen with food or milk to avoid stomach irritation. Pepcid may also reduce stomach irritation from ibuprofen. Mononucleosis may have a prolonged course and may have rebound symptoms if you increase level of activity too quickly. Sometimes symptoms may last for several weeks. Be in contact with your primary care provider and call with questions or concerns. Return to the ER if you have notably worsening symptoms despite following these instructions. Avoid close contact with others while you have symptoms as you may be contagious through body fluid such as saliva. Please read the packet of information attached about mononucleosis. Avoid any aggressive activity that could cause abdominal trauma and injury to your spleen as the spleen may be enlarged during mononucleosis. All discharge instructions reviewed with patient and/or family. Voiced understanding. Scripts Famotidine (Pepcid) 20 Mg Tablet 20 MG PO BID, #20 TAB Prov: CALVIN JACOBO MD 07/18/22 Ondansetron (Ondansetron Odt) 4 Mg Tab.rapdis 4 MG SL Q4H PRN for NAUSEA/VOMITING, #10 TAB Prov: CALVIN JACOBO MD 07/18/22 Work/School Note: Work Release Form Date Seen in the Emergency Department: Jul 18, 2022 Return to Work: Jul 20, 2022 Restrictions: Return-No Fever (24hrs), Return-No Vomiting(24hrs) Other Restrictions Listed Below: No activity at risk for abdominal trauma x 2 months. CALVIN JACOBO MD Jul 18, 2022 20:38
[2022-07-18 20:45] VITALS: BP 130/83
== END 2022-07-18 20:44 | disposition home or self-care (01) ==
LOC: EDUNIT# 18:07 → ER 18:10
DX: R10.12 Left upper quadrant pain (principal); B27.90 Infectious mononucleosis, unspecified without complication; F17.210 Nicotine dependence, cigarettes, uncomplicated
CPT/HCPCS: 36415; 80053; 81000; 83690; 83735; 85025; 86141

== ENCOUNTER 2022-08-11 19:50 | Emergency (ER) | payer BC ==
[~2022-08-11 19:50] MED LIST changes: +FAMO-119 PO; +ONDA4TAB11 SL
--- NOTE | 2022-08-11 20:07 | ED General ---
General Chief Complaint: COVID19 Suspect/Confirmed Stated Complaint: FEVER,DIZZY,BODY ACHES,CONFUSION History of Present Illness Date Seen by Provider: Aug 11, 2022 Time Seen by Provider: 20:05 Initial Comments Patient reports that she has not felt well all week. C/O dizziness, fever and body aches. Was tested yesterday for COVID and influenza and was negative. Reports that she had a fever today of 104 at home. Took Ibuprofen at home with mild improvement of symptoms. Denies exposure to COVID that she is aware of. Had similar symptoms the beginning of the month and was concerned that she had tick bourne illness. Had labs done at that time and they were all negative. Is currently taking 10 days of Doxycycline. States that she only has a few days left of the antibiotic to take. Timing/Duration: 1 Week Modifying Factors: improves with Medication Associated Systoms: Cough, Fever/Chills, Headaches; No Nausea/Vomiting, No Shortness of Air Allergies and Home Medications Allergies Coded Allergies: Penicillins (Unverified Allergy, Mild, PT ABLE TO TAKE ANCEF, 03/17/20) divalproex sodium (Verified Allergy, Unknown, 03/17/20) levofloxacin (Verified Adverse Reaction, Intermediate, 03/16/21) STATES MAKES HER FEEL LIKE HER THROAT IS CLOSING, MAKES IT HARD TO SPEAK diclofenac (Unverified Adverse Reaction, Unknown, Nausea, 07/18/22) GI upset, "Stomach problems" Patient Home Medication List Home Medication List Reviewed: Yes Cariprazine Hydrochloride (Vraylar) 1.5 Mg Capsule, (Reported) Entered as Reported by: ALLISON CHAPIN on 07/23/212134 Cephalexin (Cephalexin) 500 Mg Tablet, 500 MG PO TID Prescribed by: ISMAEL SOL on 07/23/212147 Clonazepam (Clonazepam) 0.5 Mg Tablet, (Reported) Entered as Reported by: ALLISON CHAPIN on 07/23/212134 Cyclobenzaprine HCl (Cyclobenzaprine HCl) 10 Mg Tablet, 10 MG PO Q8H PRN for SPASMS Prescribed by: REZA CORONADO on 03/17/22 112 Famotidine (Pepcid) 20 Mg Tablet, 20 MG PO BID Prescribed by: CALVIN LAMBERT on 07/18/222037 Hydrocodone/Acetaminophen (Hydrocodone-Acetamin 5-325 mg) 5 Mg-325 Mg Tablet, 1 TAB PO Q4H PRN for PAIN-MODERATE (5-7) Prescribed by: VERONICA CHAVARRIA on 05/11/222147 Ondansetron (Ondansetron Odt) 4 Mg Tab.rapdis, 4 MG SL Q4H PRN for NAUSEA/VOMITING Prescribed by: CALVIN LAMBERT on 07/18/222037 Quetiapine Fumarate (Quetiapine Fumarate) 50 Mg Tablet, (Reported) Entered as Reported by: TOM ARDON on 09/19/20 170 Review of Systems Review of Systems Constitutional: chills, fever EENTM: No nose congestion, No throat pain Respiratory: cough; No short of breath, No wheezing Cardiovascular: No chest pain, No palpitations Gastrointestinal: No abdominal pain, No nausea, No vomiting Genitourinary: No dysuria, No frequency Musculoskeletal: No back pain, No muscle pain, No muscle weakness Skin: No pruritus, No rash Psychiatric/Neurological: Headache All Other Systems Reviewed Negative Unless Noted: Yes Past Ajyjxiz-Finumv-Brghtz Hx Patient Social History Tobacco Use?: Yes Tobacco type used: Cigarettes Smoking Status: Current Everyday Smoker Use of E-Cig and/or Vaping dev: No Substance use?: No Alcohol Use?: No Pt feels they are or have been: No Immunizations Up To Date Tetanus Booster (TDap): Less than 5yrs PED Vaccines UTD: Yes Influenza Vaccine Up-to-Date: No; Not Current First/Initial COVID19 Vaccinat: MARCH 2021 Second COVID19 Vaccination Master: MARCH 2021 Third COVID19 Vaccination Date: MARCH 2021 COVID19 Vaccine Corporate Services Manager: MODERNMaddy Seasonal Allergies Seasonal Allergies: No Past Medical History Surgery/Hospitalization HX: HYSTERECTOMY, TONSILECTOMY, APPENDECTOMY, ENDOMETREOSIS, ANXIETY Surgeries: Yes (LAPAROTOMY; HYST ; LSO) Abdominal, Adenoidectomy, Appendectomy, Hysterectomy, Oophorectomy, Tonsillec laureano Respiratory: Yes Asthma Cardiac: Yes (Hx. 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 Sexually Transmitted Disease: No HIV/AIDS: No Genitourinary: No Gastrointestinal: No Musculoskeletal: Yes (CHRONIC OPIATE USE; MULITPLE VARIOUS CHRONIC PAIN COMPLAINTS) Degenerate Disk Disease, Arthritis, Back Injury, Scoliosis, Chronic Back Pain Endocrine: No HEENT: Yes (CHRONIC DENTAL PAIN/EXTENSIVE DENTAL DECAY) Cancer: No Psychosocial: Yes (EXTENSIVE PSYCH HISTORY;BENZODIAZEPINE ABUSE) Pseudo Seizures, Anxiety, PTSD, Bipolar, Depression Integumentary: No Blood Disorders: No Adverse Reaction/Blood Tranf: No Family Medical History Reviewed Nursing Family Hx Family history: Hypertension (mother, MGM, and PGM) Heart disease (mother and father) History of - anemia (family Hx of blood transfusions) Infertile Kidney disease (MGM) Physical Exam Vital Signs Vital Signs - First Documented 08/11/22 20:02 Pulse 113 Resp 16 B/P (MAP) 140/93 (109) Pulse Ox 100 O2 Delivery Room Air Capillary Refill : Height, Weight, BMI Height: 5'6.00" Weight: 130lbs. 0.0oz. 58.342864og; 27.00 BMI Method:Stated General Appearance: No Apparent Distress, WD/WN Eyes: Bilateral Eye Normal Inspection HEENT: PERRL/EOMI, TMs Normal, Normal ENT Inspection, Pharynx Normal, Moist Mucous Membranes Neck: Full Range of Motion, Normal Inspection, Non Tender, Supple Respiratory: Chest Non Tender, Lungs Clear, Normal Breath Sounds, No Accessory Muscle Use Cardiovascular: Regular Rate, Rhythm, No Edema Gastrointestinal: Normal Bowel Sounds, Non Tender, Soft Neurologic/Psychiatric: Alert, Oriented x3, No Motor/Sensory Deficits Skin: Normal Color, Warm/Dry Progress/Results/Core Measures Suspected Sepsis SIRS Temperature: Pulse: Respiratory Rate: Laboratory Tests 08/11/22 21:24: White Blood Count 9.6 Blood Pressure / Mean: Laboratory Tests 08/11/22 21:24: Creatinine 0.76, Platelet Count 227, Total Bilirubin 0.2 Results/Orders Lab Results Laboratory Tests Test 08/11/22 20:18 08/11/22 21:24 Range/Units Influenza Type A (RT-PCR) Not Detected Not Detecte Influenza Type B (RT-PCR) Not Detected Not Detecte SARS-CoV-2 RNA (RT-PCR) Not Detected Not Detecte White Blood Count 9.6 4.3-11.0 10^3/uL Red Blood Count 4.90 3.80-5.11 10^6/uL Hemoglobin 14.3 11.5-16.0 g/dL Hematocrit 42 35-52 % Mean Corpuscular Volume 86 80-99 fL Mean Corpuscular Hemoglobin 29 25-34 pg Mean Corpuscular Hemoglobin Concent 34 32-36 g/dL Red Cell Distribution Width 12.2 10.0-14.5 % Platelet Count 227 130-400 10^3/uL Mean Platelet Volume 9.7 9.0-12.2 fL Immature Granulocyte % (Auto) 0 % Neutrophils (%) (Auto) 53 42-75 % Lymphocytes (%) (Auto) 35 12-44 % Monocytes (%) (Auto) 10 0-12 % Eosinophils (%) (Auto) 2 0-10 % Basophils (%) (Auto) 0 0-10 % Neutrophils # (Auto) 5.1 1.8-7.8 10^3/uL Lymphocytes # (Auto) 3.4 1.0-4.0 10^3/uL Monocytes # (Auto) 0.9 0.0-1.0 10^3/uL Eosinophils # (Auto) 0.2 0.0-0.3 10^3/uL Basophils # (Auto) 0.0 0.0-0.1 10^3/uL Immature Granulocyte # (Auto) 0.0 0.0-0.1 10^3/uL Sodium Level 139 135-145 MMOL/L Potassium Level 4.1 3.6-5.0 MMOL/L Chloride Level 105 98-107 MMOL/L Carbon Dioxide Level 23 21-32 MMOL/L Anion Gap 11 5-14 MMOL/L Blood Urea Nitrogen 11 7-18 MG/DL Creatinine 0.76 0.60-1.30 MG/DL Estimat Glomerular Filtration Rate 107 BUN/Creatinine Ratio 14 Glucose Level 86 70-105 MG/DL Calcium Level 9.3 8.5-10.1 MG/DL Corrected Calcium 9.1 8.5-10.1 MG/DL Total Bilirubin 0.2 0.1-1.0 MG/DL Aspartate Amino Transf (AST/SGOT) 21 5-34 U/L Alanine Aminotransferase (ALT/SGPT) 27 0-55 U/L Alkaline Phosphatase 60 40-136 U/L Total Protein 7.3 6.4-8.2 GM/DL Albumin 4.2 3.2-4.5 GM/DL My Orders Orders - VANESSA TORRES APRN Chest 1 View, Ap/Pa Only (08/11/22 20:08) Cbc With Automated Diff (08/11/22 20:08) Comprehensive Metabolic Panel (08/11/22 20:08) Covid 19 Inhouse Test (08/11/22 20:08) Influenza A And B By Pcr (08/11/22 20:08) Isolation Central Supply Req (08/11/22 20:08) Acetaminophen Tablet/Caplet (Tylenol T (08/11/22 20:15) Medications Given in ED Current Medications Medications Dose Ordered Sig/Antonia Route Start Time Stop Time Status Last Admin Dose Admin Acetaminophen 650 mg ONCE ONCE PO 08/11/22 20:15 08/11/22 20:16 DC 08/11/22 20:38 650 MG Vital Signs/I&O 08/11/22 20:02 Pulse 113 Resp 16 B/P (MAP) 140/93 (109) Pulse Ox 100 O2 Delivery Room Air Capillary Refill : Progress Note : Progress Note Patient presents to the ER for fever and overall not feeling well for the past week. Reported fever 104 at home. Is afebrile here upon arrival. Will check labs, COVID and CXR. 2155: Reviewed labs with patient. She is demanding to know why she had fever of 104. No fever was documented while she was here in the department. Labs were unremarkable. I explained to her that it could be something viral as labs are fine. Instructed to continue antibiotics as previously prescribed. Reasons to return to the ER were discussed with patient. She was non toxic in appearance and no obvious distress while here in the department. Departure Impression Primary Impression: Viral syndrome Disposition: HOME, SELF-CARE Condition: Stable Departure-Patient Inst. Decision time for Depature: 22:01 Referrals: [facility] [place] (PCP/Family) Primary Care Physician Patient Instructions: Viral Syndrome (DC) Add. Discharge Instructions: 1. Home and rest. 2. Push fluids. 3. Alternate Tylenol/Ibuprofen as needed for pain or fever. 4. Continue antibiotics as directed previously. 5. Follow up with PCP as needed. 6. Return here if worse or concerns. All discharge instructions reviewed with patient and/or family. Voiced understanding. VANESSA TORRES APRN Aug 11, 2022 20:07
[2022-08-11] MEDS ORDERED: ACETAMINOPHEN 325 MG TABLET PO ONE (20:15)
--- NOTE | 2022-08-11 20:45 | Diagnostic Imaging Report ---
HISTORY: Fever. TECHNIQUE: Frontal view of the chest. COMPARISON: 03/17/2022. FINDINGS: Lung volumes are mildly large. No consolidation is seen. Haziness in the lung bases is thought to be due to overlying soft tissue. There is no pleural effusion or pneumothorax. The cardiac silhouette is normal in size. IMPRESSION: No acute pulmonary abnormality. Dictated by: Dictated on workstation # [id number]
[2022-08-11 21:29] LABS: BASOPHILS % (AUTO) 0 % (0-10); EOSINOPHILS # (AUTO) 0.2 10^3/uL (0.0-0.3); EOSINOPHILS % (AUTO) 2 % (0-10); HEMATOCRIT 42 % (35-52); HEMOGLOBIN 14.3 g/dL (11.5-16.0); LYMPHOCYTES # (AUTO) 3.4 10^3/uL (1.0-4.0); LYMPHOCYTES % (AUTO) 35 % (12-44); MEAN CORPUSCULAR HEMOGLOBIN 29 pg (25-34); MEAN CORPUSCULAR HGB CONC 34 g/dL (32-36); MEAN CORPUSCULAR VOLUME 86 fL (80-99); MEAN PLATELET VOLUME 9.7 fL (9.0-12.2); MONOCYTES # (AUTO) 0.9 10^3/uL (0.0-1.0); MONOCYTES % (AUTO) 10 % (0-12); NEUTROPHILS # (AUTO) 5.1 10^3/uL (1.8-7.8); NEUTROPHILS % (AUTO) 53 % (42-75); PLATELET COUNT 227 10^3/uL (130-400); WHITE BLOOD COUNT 9.6 10^3/uL (4.3-11.0)
[2022-08-11 21:58] LABS: ALBUMIN 4.2 GM/DL (3.2-4.5); BILIRUBIN,TOTAL 0.2 MG/DL (0.1-1.0); CALCIUM 9.3 MG/DL (8.5-10.1); CREATININE SERUM 0.76 MG/DL (0.60-1.30); POTASSIUM 4.1 MMOL/L (3.6-5.0); TOTAL PROTEIN 7.3 GM/DL (6.4-8.2)
[2022-08-11 22:36] VITALS: BP 112/79
== END 2022-08-11 22:39 | disposition home or self-care (01) ==
LOC: EDUNIT# 19:50 → ER 19:52
DX: B34.9 Viral infection, unspecified (principal); F17.210 Nicotine dependence, cigarettes, uncomplicated; Z20.822 Contact with and (suspected) exposure to COVID-19; Z28.311 Partially vaccinated for COVID-19
CPT/HCPCS: 36415; 71045; 80053; 85025; 87636; 99283

== ENCOUNTER 2022-09-15 16:12 | Emergency (ER) | payer BC ==
[~2022-09-15] VITALS: Ht 167 cm; Wt 77.5 kg
--- NOTE | 2022-09-15 16:43 | ED Cough/URI ---
General Chief Complaint: Respiratory Problems Stated Complaint: TROUBLE BREATHING Nursing Triage Note: ARRIVED VIA AMB TO TRIAGE WITH SOA THAT IS WORSE WHEN SHE LAYS DOWN AND STATES HER PULSE OX DROPS WHEN SHE LAYS DOWN. [facility]ER[facility] ET DX WITH BRONCHITS AND PUT ON ALBUTEROL. WAS TESTED FOR COVID YESTERDAY AND IT WAS NEG. History of Present Illness Date Seen by Provider: Sep 15, 2022 Time Seen by Provider: 16:43 Initial Comments Patient presents to the emergency department with shortness of breath that is getting worse. States that the shortness of breath is worse when she lays down and she notices that her pulse ox drops in addition. Was seen at urgent care yesterday and was diagnosed with bronchitis. Given inhaler and antibiotics. Was also tested for COVID at that time and was negative. Denies recent sick contacts that she is aware of. Timing/Duration: getting worse Severity/Quality: moderate Modifying Factors: Improves With Albuterol Inhaler; Worse With Coughing, Worse With Lying Down; Improves With Rest Associated Symptoms: cough, earache, nasal congestion Allergies and Home Medications Allergies Coded Allergies: Penicillins (Unverified Allergy, Mild, PT ABLE TO TAKE ANCEF, 03/17/20) divalproex sodium (Verified Allergy, Unknown, 03/17/20) levofloxacin (Verified Adverse Reaction, Intermediate, 03/16/21) STATES MAKES HER FEEL LIKE HER THROAT IS CLOSING, MAKES IT HARD TO SPEAK diclofenac (Unverified Adverse Reaction, Unknown, Nausea, 07/18/22) GI upset, "Stomach problems" Patient Home Medication List Home Medication List Reviewed: Yes Cariprazine Hydrochloride (Vraylar) 1.5 Mg Capsule, (Reported) Entered as Reported by: ALLISON CHAPIN on 07/23/212134 Clonazepam (Clonazepam) 0.5 Mg Tablet, (Reported) Entered as Reported by: ALLISON CHAPIN on 07/23/212134 Prednisone (Prednisone) 20 Mg Tab, 60 MG PO DAILY Prescribed by: Laura Torres on 09/15/221734 Quetiapine Fumarate (Quetiapine Fumarate) 50 Mg Tablet, (Reported) Entered as Reported by: TOM ARDON on 09/19/20 1702 Discontinued Medications Cephalexin (Cephalexin) 500 Mg Tablet, 500 MG PO TID Discontinued Reason: No Longer Taking Prescribed by: ISMAEL SOL on 07/23/212147 Last Action: Discontinued Cyclobenzaprine HCl (Cyclobenzaprine HCl) 10 Mg Tablet, 10 MG PO Q8H PRN for SPASMS Discontinued Reason: No Longer Taking Prescribed by: REZA CORONADO on 03/17/221126 Last Action: Discontinued Famotidine (Pepcid) 20 Mg Tablet, 20 MG PO BID Discontinued Reason: No Longer Taking Prescribed by: CALVIN LAMBERT on 07/18/222037 Last Action: Discontinued Hydrocodone/Acetaminophen (Hydrocodone-Acetamin 5-325 mg) 5 Mg-325 Mg Tablet, 1 TAB PO Q4H PRN for PAIN-MODERATE (5-7) Discontinued Reason: No Longer Taking Prescribed by: VERONICA CHAVARRIA on 05/11/222147 Last Action: Discontinued Ondansetron (Ondansetron Odt) 4 Mg Tab.rapdis, 4 MG SL Q4H PRN for NAUSEA/VOMITING Discontinued Reason: No Longer Taking Prescribed by: CALVIN LAMBERT on 07/18/222037 Last Action: Discontinued Review of Systems Review of Systems Constitutional: No chills, No dizziness, No fever, No malaise, No weakness EENTM: nose congestion; No ear pain, No throat pain Respiratory: cough, dyspnea on exertion, short of breath; No stridor, No wheezing Cardiovascular: No chest pain, No palpitations Gastrointestinal: No abdominal pain, No nausea, No vomiting Genitourinary: no symptoms reported Musculoskeletal: No joint pain, No joint swelling Skin: no symptoms reported All Other Systems Reviewed Negative Unless Noted: Yes Past Rkpuuko-Jmlzss-Vexyng Hx Patient Social History Tobacco Use?: Yes Tobacco type used: Cigarettes Smoking Status: Current Everyday Smoker Substance use?: No Alcohol Use?: No Immunizations Up To Date Tetanus Booster (TDap): Less than 5yrs PED Vaccines UTD: Yes First/Initial COVID19 Vaccinat: UNKNOWN Second COVID19 Vaccination Master: MARCH 2021 Third COVID19 Vaccination Date: MARCH 2021 COVID19 Vaccine Drafter Chief Design: JACINTA Seasonal Allergies Seasonal Allergies: No Past Medical History Surgery/Hospitalization HX: HYSTERECTOMY, TONSILECTOMY, APPENDECTOMY, ENDOMETREOSIS, ANXIETY Surgeries: Yes (LAPAROTOMY; HYST ; LSO) Abdominal, Adenoidectomy, Appendectomy, Hysterectomy, Oophorectomy, Tonsillectomy Respiratory: Yes Asthma Cardiac: Yes (Hx. 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 Transmitted Disease: No HIV/AIDS: No Genitourinary: No Gastrointestinal: No Musculoskeletal: Yes (CHRONIC OPIATE USE; MULITPLE VARIOUS CHRONIC PAIN COMPLAINTS) Degenerate Disk Disease, Arthritis, Back Injury, Scoliosis, Chronic Back Pain Endocrine: No HEENT: Yes (CHRONIC DENTAL PAIN/EXTENSIVE DENTAL DECAY) Cancer: No Psychosocial: Yes (EXTENSIVE PSYCH HISTORY;BENZODIAZEPINE ABUSE) Pseudo Seizures, Anxiety, PTSD, Bipolar, Depression Integumentary: No Blood Disorders: No Adverse Reaction/Blood Tranf: No Family Medical History Reviewed Nursing Family Hx Family history: Hypertension (mother, MGM, and PGM) Heart disease (mother and father) History of - anemia (family Hx of blood transfusions) Infertile Kidney disease (MGM) Physical Exam Vital Signs - First Documented 09/15/22 16:18 Temp 37.0 Pulse 98 Resp 18 B/P (MAP) 128/89 (102) Pulse Ox 98 O2 Delivery Room Air Capillary Refill : Less Than 3 Seconds Height: 5'6.00" Weight: 130lbs. 0.0oz. 58.421358rz; 27.00 BMI Method:Stated General Appearance: WD/WN, no apparent distress Eyes: Bilateral Eye Normal Inspection, Bilateral Eye PERRL Neck: non-tender, full range of motion, supple, normal inspection Respiratory: chest non-tender, lungs clear, normal breath sounds, no respiratory distress, no accessory muscle use Cardiovascular: regular rate, rhythm, no edema Gastrointestinal: normal bowel sounds, non tender, soft Extremities: normal range of motion, non-tender Neurologic/Psychiatric: alert, normal mood/affect, oriented x 3 Skin: normal color, warm/dry Progress/Results/Core Measures Suspected Sepsis SIRS Temperature: Pulse: 98 Respiratory Rate: 18 Blood Pressure 128 /89 Mean: 102 Results/Orders My Orders Orders - LAURA TORRES APRN Chest 1 View, Ap/Pa Only (09/15/22 16:49) Prednisone Tablet (Deltasone Tablet) (09/15/22 17:00) Albuterol/Ipra Inhalation Soln (Duoneb I (09/15/22 17:00) Svn Small Volume Nebulizer (09/15/22 16:49) Medications Given in ED Current Medications Medications Dose Ordered Sig/Antonia Route Start Time Stop Time Status Last Admin Dose Admin Albuterol/ Ipratropium 3 ml ONCE ONCE INH 09/15/22 17:00 09/15/22 17:01 DC 09/15/22 17:09 3 ML Prednisone 60 mg ONCE ONCE PO 09/15/22 17:00 09/15/22 17:01 DC 09/15/22 17:02 60 MG Vital Signs/I&O 09/15/22 09/15/22 16:18 17:09 Temp 37.0 Pulse 98 Resp 18 B/P (MAP) 128/89 (102) Pulse Ox 98 96 O2 Delivery Room Air Room Air Capillary Refill : Less Than 3 Seconds Blood Pressure Mean: 102 Progress Note : Progress Note Patient reports that she feels about the same after breathing treatment and steroids. Oxygen saturations remain high 90s on room air. No respiratory distress is appreciated. Instructed that XR was clear. Will send home with prescription of Prednisone and she can continue the other medications that she was prescribed as directed. Home treatments reviewed with patient along with reasons to return to the ER. Diagnostic Imaging Diagonstic Imaging: Xray Plain Films/CT/US/NM/MRI: chest Comments GAY: LISETTE BILLS MED REC#: [id number] PT STATUS: REG ER : 1990 PHYSICIAN: LAURA TORRES APRN ADMIT DATE: 09/15/22/ER Signed Date of Exam:09/15/22 CHEST 1 VIEW, AP/PA ONLY Indication: Dyspnea Single AP view of the chest is obtained. Comparison is made study of 08/11/2022 FINDINGS: Heart size and pulmonary vascularity are within normal limits, and the lungs are clear, bilaterally. IMPRESSION: Unremarkable chest. Dictated by: Dictated on workstation # [id number] Dict: 09/15/221719 Trans: 09/15/221720 [id number] Interpreted by: MARIEL CONCEPCION MD Electronically signed by: MARIEL CONCEPCION MD 09/15/22 1721 Departure Impression Primary Impression: Bronchitis Disposition: 01 HOME, SELF-CARE Condition: Stable Departure-Patient Inst. Decision time for Depature: 17:34 Referrals: [facility] [place] Primary Care Physician Patient Instructions: Acute Bronchitis, Adult (DC) Add. Discharge Instructions: 1. Home and rest. 2. Push fluids. 3. Alternate Tylenol/Ibuprofen as needed for pain. 4. Follow up with PCP as needed. 5. Continue over the counter medications as directed per package instructions. 6. Continue medications as previously prescribed. 7. Start Prednisone tomorrow AM. Try and take this medication as early in the day as possible and with food to prevent stomach upset. 8. Return here if worse or concerns. All discharge instructions reviewed with patient and/or family. Voiced understanding. Scripts Prednisone (Prednisone) 20 Mg Tab 60 MG PO DAILY for 5 Days, #15 TAB 0 Refills Prov: LAURA TORRES APRN 09/15/22 LAURA TORRES APRN Sep 15, 2022 16:43
[2022-09-15] MEDS ORDERED: RT-ALBUTEROL/IPRATROPIUM 3 ML (DUONEB) VIAL INH ONE (17:00)
[2022-09-15] MEDS ORDERED: predniSONE 20 MG TAB PO ONE (17:00)
--- NOTE | 2022-09-15 17:22 | Diagnostic Imaging Report ---
Indication: Dyspnea Single AP view of the chest is obtained. Comparison is made study of 08/11/2022 FINDINGS: Heart size and pulmonary vascularity are within normal limits, and the lungs are clear, bilaterally. IMPRESSION: Unremarkable chest. Dictated by: Dictated on workstation # [id number]
[2022-09-15] MEDS ORDERED: PRD20T PO (17:35)
[2022-09-15 17:39] VITALS: BP 119/75
== END 2022-09-15 17:39 | disposition home or self-care (01) ==
LOC: EDUNIT# 16:12 → ER 16:14
DX: J40 Bronchitis, not specified as acute or chronic (principal); F17.210 Nicotine dependence, cigarettes, uncomplicated; Z28.311 Partially vaccinated for COVID-19
CPT/HCPCS: 71045; 94640

== ENCOUNTER 2022-10-31 16:17 | Emergency (ER) | payer BC ==
[~2022-10-31] VITALS: Ht 167.7 cm; Wt 79.4 kg
--- NOTE | 2022-10-31 16:48 | ED Cough/URI ---
General Chief Complaint: Cough/Cold/Flu Symptoms Stated Complaint: HEADACHE, BODY ACHES, BLURRED VISION Nursing Triage Note: PT AMB TO TRIAGE WITH COMPLAINT OF HEADACHE, WEAKNESS, BODY ACHES, NECK STIFFNESS THAT STARTED YESTERDAY. STATES TYLENOL IS NOT IMPROVING HER HEADACHE. (SCOTT DELGADO MD) History of Present Illness Date Seen by Provider: Oct 31, 2022 Time Seen by Provider: 16:45 Initial Comments 30-year-old female with PMH of cluster headache/psych disorder, is here with complaints of myalgia, malaise, headache, neck stiffness, photophobia, blurry vision which is now resolved, with tingling in her upper and lower extremities, which all began at midnight. Patient states that she has been taking Tylenol and ibuprofen for headache but it has not been helping. Denies trauma, falls, injury, head strike, dizziness, fever or chills, nausea and vomiting. Denies any known sick contacts. Patient also states that she has not been drinking much water. (SCOTT DELGADO MD) Allergies and Home Medications Allergies Coded Allergies: Penicillins (Unverified Allergy, Mild, PT ABLE TO TAKE ANCEF, 03/17/20) divalproex sodium (Verified Allergy, Unknown, 03/17/20) levofloxacin (Verified Adverse Reaction, Intermediate, 03/16/21) STATES MAKES HER FEEL LIKE HER THROAT IS CLOSING, MAKES IT HARD TO SPEAK diclofenac (Unverified Adverse Reaction, Unknown, Nausea, 07/18/22) GI upset, "Stomach problems" Patient Home Medication List Home Medication List Reviewed: Yes (SCOTT DELGADO MD) Cariprazine Hydrochloride (Vraylar) 1.5 Mg Capsule, (Reported) Entered as Reported by: ALLISON CHAPIN on 07/23/212134 Clonazepam (Clonazepam) 0.5 Mg Tablet, (Reported) Entered as Reported by: ALLISON CHAPIN on 07/23/212134 Prednisone (Prednisone) 20 Mg Tab, 60 MG PO DAILY Prescribed by: Laura Blanchard on 09/15/221734 Quetiapine Fumarate (Quetiapine Fumarate) 50 Mg Tablet, (Reported) Entered as Reported by: TOM ARDON on 09/19/201701 Review of Systems Review of Systems Constitutional: malaise, weakness EENTM: no symptoms reported Respiratory: no symptoms reported Cardiovascular: no symptoms reported Gastrointestinal: no symptoms reported Genitourinary: no symptoms reported Musculoskeletal: muscle cramps, neck pain Skin: no symptoms reported Psychiatric/Neurological: No Symptoms Reported Hematologic/Lymphatic: No Symptoms Reported Immunological/Allergic: no symptoms reported (SCOTT DELGADO MD) Past Btgzmls-Wartkf-Thztgw Hx Patient Social History Tobacco Use?: Yes Tobacco type used: Cigarettes Smoking Status: Current Everyday Smoker Use of E-Cig and/or Vaping dev: No Substance use?: No Alcohol Use?: No Pt feels they are or have been: No (SCOTT DELGADO MD) Immunizations Up To Date Tetanus Booster (TDap): Less than 5yrs PED Vaccines UTD: Yes First/Initial COVID19 Vaccinat: 2020- ONE DOSE Second COVID19 Vaccination Master: MARCH 2021 Third COVID19 Vaccination Date: MARCH 2021 (SCOTT DELGADO MD) Seasonal Allergies Seasonal Allergies: No (SCOTT DELGADO MD) Past Medical History Surgery/Hospitalization HX: HYSTERECTOMY, TONSILECTOMY, APPENDECTOMY, ENDOMETREOSIS, ANXIETY Surgeries: Yes (LAPAROTOMY; HYST ; LSO) Abdominal, Adenoidectomy, Appendectomy, Hysterectomy, Oophorectomy, Tonsillectom y Respiratory: Yes Asthma Cardiac: Yes (Hx. 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 Sexually Transmitted Disease: No HIV/AIDS: No Genitourinary: No Gastrointestinal: No Musculoskeletal: Yes (CHRONIC OPIATE USE; MULITPLE VARIOUS CHRONIC PAIN COM PLAINTS) Degenerate Disk Disease, Arthritis, Back Injury, Scoliosis, Chronic Back Pain Endocrine: No HEENT: Yes (CHRONIC DENTAL PAIN/EXTENSIVE DENTAL DECAY) Cancer: No Psychosocial: Yes (EXTENSIVE PSYCH HISTORY;BENZODIAZEPINE ABUSE) Pseudo Seizures, Anxiety, PTSD, Bipolar, Depression Integumentary: No Blood Disorders: No Adverse Reaction/Blood Tranf: No (SCOTT DELGADO MD) Family Medical History Family history: Hypertension (mother, MGM, and PGM) Heart disease (mother and father) History of - anemia (family Hx of blood transfusions) Infertile Kidney disease (MGM) Physical Exam Vital Signs - First Documented 10/31/22 16:23 Temp 37.0 Pulse 104 Resp 16 B/P (MAP) 137/93 (108) Pulse Ox 98 O2 Delivery Room Air (CALVIN JACOBO MD) Capillary Refill : Less Than 3 Seconds (SCOTT DELGADO MD) Height: 5'6.00" Weight: 130lbs. 0.0oz. 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 Strength is 5/5 on bilateral upper and lower extremities), alert, normal mood/affect, oriented x 3, other (Kernig's and Brudzinski sign is negative) Skin: normal color Lymphatic: no adenopathy (SCOTT DELGADO MD) Focused Exam Lactate Level 10/31/22 18:12: Lactic Acid Level 1.06 (CALVIN JACOBO MD) Lactic Acid Level Laboratory Tests Test 10/31/22 18:12 Lactic Acid Level 1.06 MMOL/L (0.50-2.00) (CALVIN JACOBO MD) Progress/Results/Core Measures Suspected Sepsis SIRS Temperature: Pulse: 104 Respiratory Rate: 16 Laboratory Tests 10/31/22 18:12: White Blood Count 8.5 Blood Pressure 137 /93 Mean: 108 10/31/22 18:12: Laboratory Tests 10/31/22 18:12: Platelet Count 243 (SCOTT DELGADO MD) Results/Orders Lab Results Laboratory Tests Test 10/31/22 16:00 10/31/22 16:58 10/31/22 18:00 10/31/22 18:12 Range/Units Influenza Type A (RT-PCR) Not Detected Not Detected Not Detecte Influenza Type B (RT-PCR) Not Detected Not Detected Not Detecte SARS-CoV-2 RNA (RT-PCR) Not Detected Not Detecte Group A Streptococcus Screen NEGATIVE NEGATIVE Urine Color YELLOW Urine Clarity CLEAR Urine pH 6.5 5-9 Urine Specific [place] 1.020 1.016-1.022 Urine Protein NEGATIVE NEGATIVE Urine Glucose (UA) NEGATIVE NEGATIVE Urine Ketones NEGATIVE NEGATIVE Urine Nitrite NEGATIVE NEGATIVE Urine Bilirubin NEGATIVE NEGATIVE Urine Urobilinogen 0.2 < = 1.0 MG/DL Urine Leukocyte Esterase NEGATIVE NEGATIVE Urine RBC (Auto) TRACE-I H NEGATIVE Urine RBC NONE /HPF Urine WBC NONE /HPF Urine Squamous Epithelial Cells 0-2 /HPF Urine Renal Epithelial Cells NONE /HPF Urine Crystals NONE /LPF Urine Bacteria NEGATIVE /HPF Urine Casts NONE /LPF Urine Mucus NEGATIVE /LPF Urine Culture Indicated NO Urine Opiates Screen NEGATIVE NEGATIVE Urine Oxycodone Screen NEGATIVE NEGATIVE Urine Methadone Screen NEGATIVE NEGATIVE Urine Propoxyphene Screen NEGATIVE NEGATIVE Urine Barbiturates Screen NEGATIVE NEGATIVE Ur Tricyclic Antidepressants Screen NEGATIVE NEGATIVE Urine Phencyclidine Screen NEGATIVE NEGATIVE Urine Amphetamines Screen NEGATIVE NEGATIVE Urine Methamphetamines Screen NEGATIVE NEGATIVE Urine Benzodiazepines Screen NEGATIVE NEGATIVE Urine Cocaine Screen NEGATIVE NEGATIVE Urine Cannabinoids Screen NEGATIVE NEGATIVE White Blood Count 8.5 4.3-11.0 10^3/uL Red Blood Count 5.06 3.80-5.11 10^6/uL Hemoglobin 14.8 11.5-16.0 g/dL Hematocrit 44 35-52 % Mean Corpuscular Volume 86 80-99 fL Mean Corpuscular Hemoglobin 29 25-34 pg Mean Corpuscular Hemoglobin Concent 34 32-36 g/dL Red Cell Distribution Width 12.1 10.0-14.5 % Platelet Count 243 130-400 10^3/uL Mean Platelet Volume 10.6 9.0-12.2 fL Immature Granulocyte % (Auto) 0 % Neutrophils (%) (Auto) 51 42-75 % Lymphocytes (%) (Auto) 37 12-44 % Monocytes (%) (Auto) 10 0-12 % Eosinophils (%) (Auto) 2 0-10 % Basophils (%) (Auto) 0 0-10 % Neutrophils # (Auto) 4.4 1.8-7.8 10^3/uL Lymphocytes # (Auto) 3.1 1.0-4.0 10^3/uL Monocytes # (Auto) 0.8 0.0-1.0 10^3/uL Eosinophils # (Auto) 0.2 0.0-0.3 10^3/uL Basophils # (Auto) 0.0 0.0-0.1 10^3/uL Immature Granulocyte # (Auto) 0.0 0.0-0.1 10^3/uL Sodium Level 138 135-145 MMOL/L Potassium Level 3.8 3.6-5.0 MMOL/L Chloride Level 104 98-107 MMOL/L Carbon Dioxide Level 26 21-32 MMOL/L Anion Gap 8 5-14 MMOL/L Blood Urea Nitrogen 12 7-18 MG/DL Creatinine 0.72 0.60-1.30 MG/DL Estimat Glomerular Filtration Rate 114 BUN/Creatinine Ratio 17 Glucose Level 85 70-105 MG/DL Lactic Acid Level 1.06 0.50-2.00 MMOL/L Calcium Level 9.3 8.5-10.1 MG/DL Corrected Calcium 9.1 8.5-10.1 MG/DL Total Bilirubin 0.2 0.1-1.0 MG/DL Aspartate Amino Transf (AST/SGOT) 15 5-34 U/L Alanine Aminotransferase (ALT/SGPT) 15 0-55 U/L Alkaline Phosphatase 60 40-136 U/L C-Reactive Protein High Sensitivity 0.07 0.00-0.50 MG/DL Total Protein 7.3 6.4-8.2 GM/DL Albumin 4.3 3.2-4.5 GM/DL Procalcitonin 0.01 <0.10 NG/ML Serum Test, Qualitative NEGATIVE NEGATIVE (CALVIN JACOBO MD) My Orders Orders - CALVIN JACOBO MD Hs C Reactive Protein (10/31/22 18:09) Lactated Ringers (Lr 1000 Ml Iv Solution (10/31/22 18:15) Hcg,Qualitative Serum (10/31/22 18:13) Fentanyl Inj (Sublimaze Injection) (10/31/22 20:30) Ondansetron Injection (Zofran Injectio (10/31/22 20:30) (CALVIN JACOBO MD) Medications Given in ED Current Medications Medications Dose Ordered Sig/Antonia Route Start Time Stop Time Status Last Admin Dose Admin Diphenhydramine HCl 25 mg ONCE ONCE IVP 10/31/22 17:45 10/31/22 17:46 DC 10/31/22 18:09 25 MG Fentanyl Citrate 50 mcg ONCE ONCE IVP 10/31/22 20:30 10/31/22 20:31 DC 10/31/22 20:46 50 MCG Ketorolac Tromethamine 15 mg ONCE ONCE IVP 10/31/22 17:45 10/31/22 17:46 DC 10/31/22 18:11 15 MG Lactated Ringer's 1,000 ml @ 0 mls/hr Q0M ONCE IV 10/31/22 18:15 10/31/22 18:16 DC 10/31/22 18:14 0 MLS/HR Ondansetron HCl 8 mg ONCE ONCE IVP 10/31/22 20:30 10/31/22 20:31 DC 10/31/22 20:47 8 MG (CALVIN JACOBO MD) Vital Signs/I&O 10/31/22 10/31/22 16:23 20:51 Temp 37.0 Pulse 104 93 Resp 16 16 B/P (MAP) 137/93 (108) 133/79 Pulse Ox 98 99 O2 Delivery Room Air Room Air (CALVIN JACOBO MD) Vital Signs/I&O Capillary Refill : Less Than 3 Seconds (SCOTT DELGADO MD) Blood Pressure Mean: 108 Progress Note : Progress Note 1.HEADACHE: - COVID test/ Rapid flu test: - CT HEAD/ C-SPINE: - CBC/ CMP/ Lactic acid - UCG/ UA/ UDS - Toradol 15mg iv/ Benadryl 25mg iv/ Phenergan 25mg iv STAT. Patient did not have a true allergy to diclofenac, denies upset stomach with it due to taking it on empty stomach. We will proceed to giving patient Toradol since she has never had a reaction to it in the past as per patient. -Patient's clinical exam is not proportionate to patient's symptoms. As per staff patient is a frequent flyer to the ER, and usually presents with similar complaints. - Signed out to Dr Encinas for follow up of labs and imaging (SCOTT DELGADO MD) Progress Note : Progress Note Care of this patient was assumed from Dr. Muro at shift change. Labs were rev iewed and were unremarkable. CT of the head and cervical spine also was unremarkable. Patient had a decrease in headache and nausea. She was further treated with Zofran and fentanyl. During my discussion of results, she demonstrated ability to flex her neck fully to her chest without pain or rigidity. Labs and vital signs were not consistent with infectious etiology. See discharge instructions for further discussion. (CALVIN JACOBO MD) Diagnostic Imaging Diagonstic Imaging: CT Plain Films/CT/US/NM/MRI: c-spine, head Comments CT head and cervical spine viewed by me. No acute abnormalities were appreciated by my interpretation. Report reviewed as well. See report below: NAME: LISETTE BILLS [facility] REC#: [id number] PT STATUS: REG ER : 1990 PHYSICIAN: SCOTT DELGADO MD ADMIT DATE: 10/31/22/ER Signed Date of Exam:10/31/22 CT HEAD/CERVICAL SPINE WO PROCEDURE: CT head and CT cervical spine without contrast. TECHNIQUE: Multiple contiguous axial images were obtained through the brain and cervical spine without the use of intravenous contrast. Sagittal and coronal reformations through the cervical spine were then performed. Auto Exposure Controls were utilized during the CT exam to meet ALARA standards for radiation dose reduction. INDICATION: Headache, weakness, neck pain. COMPARISON: 01/10/2021 FINDINGS: CT HEAD: Ventricles and cortical sulci are age-appropriate. There is no midline shift or mass effect. No acute intracranial hemorrhage is seen. There is no CT evidence of acute territorial ischemia. The calvarium appears intact. The visualized paranasal sinuses are clear. CT CERVICAL SPINE: There is mild reversal of the cervical lordosis centered at C6. There is no spondylolisthesis. The vertebral body heights are preserved and no acute fracture is seen. Disc heights are generally preserved. Soft tissues about the cervical spine demonstrate no acute abnormality. IMPRESSION: 1. No acute intracranial hemorrhage or CT evidence of acute territorial ischemia. 2. No acute osseous abnormality is seen in the cervical spine. Dictated by: Dictated on workstation # [id number] Dict: 10/31/22 190 Trans: 10/31/221931 [facility] [id number] Interpreted by: PAPITO MEDELLIN MD Electronically signed by: PAPITO MEDELLIN MD 10/31/221931 (CALVIN JACOBO MD) Departure Impression Primary Impression: Headache Qualified Codes: R51.9 - Headache, unspecified Disposition: 01 HOME, SELF-CARE Condition: Improved Departure-Patient Inst. Decision time for Depature: 20:32 (CALVIN JACOBO MD) Referrals: [facility] (PCP/Family) Primary Care Physician Patient Instructions: Headache, Adult Add. Discharge Instructions: Your lab work and CT scan of your head were unremarkable. Your flu and COVID testing were negative. Drink plenty of clear liquids to stay well-hydrated. You may take ibuprofen up to 600 mg every 6 hours as needed for pain. Add Tylenol (acetaminophen) up to 1000 mg every 6 hours as needed for additional pain relief. Use your Zofran as previously prescribed to control nausea. Try to rest in a quiet, calm, dark environment for the rest of the night while you have your IV medications on board. Call your doctor tomorrow morning for follow-up. Return to the ER if you have worsening symptoms despite following these instructions. All discharge instructions reviewed with patient and/or family. Voiced understanding. Copy Copies To 1: [facility]/SCOTT HART MD Oct 31, 2022 16:48 CALVIN JACOBO MD Oct 31, 2022 20:33
[2022-10-31] MEDS ORDERED: PROMETHAZINE INJ 25 MG/ML (PHENERGAN) AMP IVP STA (17:43)
[2022-10-31] MEDS ORDERED: diphenhydrAMINE 50 MG/ML INJ (BENADRYL) IVP ONE (17:45)
[2022-10-31] MEDS ORDERED: KETOROLAC 30 MG/ML VIAL IVP ONE (17:45)
[2022-10-31 18:07] LABS: BILIRUBIN,URINE NEGATIVE (NEGATIVE); CLARITY,URINE CLEAR; COLOR,URINE YELLOW; GLUCOSE, URINE (UA) NEGATIVE (NEGATIVE); KETONES,URINE NEGATIVE (NEGATIVE); LEUKOCYTE ESTERASE ,URINE NEGATIVE (NEGATIVE); NITRITE,URINE NEGATIVE (NEGATIVE); PH,URINE 6.5 (5-9); PROTEIN,URINE NEGATIVE (NEGATIVE)
[2022-10-31 18:12] LABS: BACTERIA,URINE NEGATIVE /HPF; SQUAMOUS EPITHELIAL CELL,UR 0-2 /HPF
[2022-10-31] MEDS ORDERED: LACTATED RINGERS 1,000 ML IV ONE (18:15)
[2022-10-31 18:19] LABS: AMPHETAMINE SCREEN, URINE NEGATIVE (NEGATIVE); BARBITURATE SCREEN URINE NEGATIVE (NEGATIVE); BENZODIAZEPINES SCREEN URINE NEGATIVE (NEGATIVE); CANNABINOID SCREEN, URINE NEGATIVE (NEGATIVE); COCAINE SCREEN URINE NEGATIVE (NEGATIVE); METHADONE STAT NEGATIVE (NEGATIVE); OPIATE SCREEN URINE NEGATIVE (NEGATIVE); OXYCODONE STAT NEGATIVE (NEGATIVE); PROPOXYPHENE STAT NEGATIVE (NEGATIVE); TRICYCLIC ANTIDEPRESSANTS SCRE NEGATIVE (NEGATIVE)
[2022-10-31 18:26] LABS: BASOPHILS % (AUTO) 0 % (0-10); EOSINOPHILS # (AUTO) 0.2 10^3/uL (0.0-0.3); EOSINOPHILS % (AUTO) 2 % (0-10); HEMATOCRIT 44 % (35-52); HEMOGLOBIN 14.8 g/dL (11.5-16.0); LYMPHOCYTES # (AUTO) 3.1 10^3/uL (1.0-4.0); LYMPHOCYTES % (AUTO) 37 % (12-44); MEAN CORPUSCULAR HEMOGLOBIN 29 pg (25-34); MEAN CORPUSCULAR HGB CONC 34 g/dL (32-36); MEAN CORPUSCULAR VOLUME 86 fL (80-99); MEAN PLATELET VOLUME 10.6 fL (9.0-12.2); MONOCYTES # (AUTO) 0.8 10^3/uL (0.0-1.0); MONOCYTES % (AUTO) 10 % (0-12); NEUTROPHILS # (AUTO) 4.4 10^3/uL (1.8-7.8); NEUTROPHILS % (AUTO) 51 % (42-75); PLATELET COUNT 243 10^3/uL (130-400); WHITE BLOOD COUNT 8.5 10^3/uL (4.3-11.0)
[2022-10-31 18:39] LABS: ALBUMIN 4.3 GM/DL (3.2-4.5)
[2022-10-31 18:40] LABS: POTASSIUM 3.8 MMOL/L (3.6-5.0)
[2022-10-31 18:41] LABS: CALCIUM 9.3 MG/DL (8.5-10.1)
[2022-10-31 18:42] LABS: TOTAL PROTEIN 7.3 GM/DL (6.4-8.2)
[2022-10-31 18:44] LABS: BILIRUBIN,TOTAL 0.2 MG/DL (0.1-1.0)
[2022-10-31 18:46] LABS: CREATININE SERUM 0.72 MG/DL (0.60-1.30)
--- NOTE | 2022-10-31 19:28 | Diagnostic Imaging Report ---
PROCEDURE: CT head and CT cervical spine without contrast. TECHNIQUE: Multiple contiguous axial images were obtained through the brain and cervical spine without the use of intravenous contrast. Sagittal and coronal reformations through the cervical spine were then performed. Auto Exposure Controls were utilized during the CT exam to meet ALARA standards for radiation dose reduction. INDICATION: Headache, weakness, neck pain. COMPARISON: 01/10/2021 FINDINGS: CT HEAD: Ventricles and cortical sulci are age-appropriate. There is no midline shift or mass effect. No acute intracranial hemorrhage is seen. There is no CT evidence of acute territorial ischemia. The calvarium appears intact. The visualized paranasal sinuses are clear. CT CERVICAL SPINE: There is mild reversal of the cervical lordosis centered at C6. There is no spondylolisthesis. The vertebral body heights are preserved and no acute fracture is seen. Disc heights are generally preserved. Soft tissues about the cervical spine demonstrate no acute abnormality. IMPRESSION: 1. No acute intracranial hemorrhage or CT evidence of acute territorial ischemia. 2. No acute osseous abnormality is seen in the cervical spine. Dictated by: Dictated on workstation # [id number]
[2022-10-31] MEDS ORDERED: fentaNYL INJ 100 MCG/2 ML AMP IVP ONE (20:30)
[2022-10-31] MEDS ORDERED: ONDANSETRON 4 MG/2 ML (SDV) Z0FRAN IVP ONE (20:30)
[2022-10-31 20:51] VITALS: BP 133/79
== END 2022-10-31 20:51 | disposition home or self-care (01) ==
LOC: EDUNIT# 16:17 → ER 16:19
DX: R51.9 Headache, unspecified (principal); R11.0 Nausea; F17.210 Nicotine dependence, cigarettes, uncomplicated; Z88.6 Allergy status to analgesic agent; Z20.822 Contact with and (suspected) exposure to COVID-19; Z28.311 Partially vaccinated for COVID-19
CPT/HCPCS: 36415; 70450; 72125; 80053; 80306; 81000; 83605; 84145; 84703; 85025; 86141; 87430; 87636

== ENCOUNTER 2022-11-15 16:57 | Emergency (ER) | payer BC ==
[~2022-11-15] VITALS: Ht 167.7 cm; Wt 79.4 kg
[2022-11-15 17:35] LABS: BILIRUBIN,URINE 1+ (NEGATIVE); CLARITY,URINE CLEAR; COLOR,URINE YELLOW; GLUCOSE, URINE (UA) NEGATIVE (NEGATIVE); KETONES,URINE TRACE (NEGATIVE); LEUKOCYTE ESTERASE ,URINE NEGATIVE (NEGATIVE); NITRITE,URINE NEGATIVE (NEGATIVE); PROTEIN,URINE 1+ (NEGATIVE)
[2022-11-15] MEDS ORDERED: NS IV 1000 ML 1,000 ML IV SCH (17:45)
--- NOTE | 2022-11-15 17:45 | ED General ---
General Chief Complaint: General Problems/Pain Stated Complaint: PAIN ALL OVER Nursing Triage Note: PT AMBULATE TO ROOM FT1 WITHOUT DIFFICULTY WITH C/O HEAD, LEFT SIDE NECK, BILAT LEG, AND BILAT RIB PAIN STARTING YESTERDAY WORSENING TODAY. PT STATES SHE "CAN'T REGULATE MY BODY TEMPERATURE BECAUSE I FEEL HOT AND THEN COLD". PT REPORTS TAKING TYLENOL AND IBUPROFEN FOR PAIN. Source of Information: Patient Exam Limitations: No Limitations History of Present Illness Date Seen by Provider: Nov 15, 2022 Time Seen by Provider: 17:45 Allergies and Home Medications Allergies Coded Allergies: Penicillins (Unverified Allergy, Mild, PT ABLE TO TAKE ANCEF, 03/17/20) divalproex sodium (Verified Allergy, Unknown, 03/17/20) levofloxacin (Verified Adverse Reaction, Intermediate, 03/16/21) STATES MAKES HER FEEL LIKE HER THROAT IS CLOSING, MAKES IT HARD TO SPEAK diclofenac (Unverified Adverse Reaction, Unknown, Nausea, 07/18/22) GI upset, "Stomach problems" Patient Home Medication List Cariprazine Hydrochloride (Vraylar) 1.5 Mg Capsule, (Reported) Entered as Reported by: ALLISON CHAPIN on 07/23/212134 Clonazepam (Clonazepam) 0.5 Mg Tablet, (Reported) Entered as Reported by: ALLISON CHAPIN on 07/23/212134 Prednisone (Prednisone) 20 Mg Tab, 60 MG PO DAILY Prescribed by: Laura Blanchard on 09/15/22 173 Quetiapine Fumarate (Quetiapine Fumarate) 50 Mg Tablet, (Reported) Entered as Reported by: TOM ARDON on 09/19/20 1702 Past Jgnshpl-Gaxkjr-Wxsile Hx Patient Social History Tobacco Use?: Yes Tobacco type used: Cigarettes Smoking Status: Heavy Tobacco Smoker Smokeless Tobacco Frequency: Never a User Use of E-Cig and/or Vaping dev: No Use of E-Cig and/or Vaping Faraz: Never a User Substance use?: No Alcohol Use?: No Pt feels they are or have been: No Immunizations Up To Date Tetanus Booster (TDap): Less than 5yrs PED Vaccines UTD: Yes First/Initial COVID19 Vaccinat: 2020- ONE DOSE Second COVID19 Vaccination Master: MARCH 2021 Third COVID19 Vaccination Date: MARCH 2021 COVID19 Vaccine Lift Mechanic: MODERNA Seasonal Allergies Seasonal Allergies: No Past Medical History Surgery/Hospitalization HX: HYSTERECTOMY, TONSILECTOMY, APPENDECTOMY, ENDOMETREOSIS, ANXIETY Surgeries: Yes (LAPAROTOMY; HYST ; LSO) Abdominal, Adenoidectomy, Appendectomy, Hysterectomy, Oophorectomy, Tonsillectomy Respiratory: Yes Asthma Cardiac: Yes (Hx. 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 Sexually Transmitted Disease: No HIV/AIDS: No Genitourinary: No Gastrointestinal: No Musculoskeletal: Yes (CHRONIC OPIATE USE; MULITPLE VARIOUS CHRONIC PAIN COMPLAINTS) Degenerate Disk Disease, Arthritis, Back Injury, Scoliosis, Chronic Back Pain Endocrine: No HEENT: Yes (CHRONIC DENTAL PAIN/EXTENSIVE DENTAL DECAY) Cancer: No Psychosocial: Yes (EXTENSIVE PSYCH HISTORY;BENZODIAZEPINE ABUSE) Pseudo Seizures, Anxiety, PTSD, Bipolar, Depression Integumentary: No Blood Disorders: No Adverse Reaction/Blood Tranf: No Family Medical History Family history: Hypertension (mother, MGM, and PGM) Heart disease (mother and father) History of - anemia (family Hx of blood transfusions) Infertile Kidney disease (MGM) Physical Exam Vital Signs Vital Signs - First Documented 11/15/22 17:11 Temp 36.8 Pulse 133 Resp 18 B/P (MAP) 136/78 (97) O2 Delivery Room Air Capillary Refill : Less Than 3 Seconds Height, Weight, BMI Height: 5'6.00" Weight: 130lbs. 0.0oz. 58.018454tl; 28.00 BMI Method:Stated Progress/Results/Core Measures Suspected Sepsis SIRS Temperature: Pulse: 133 Respiratory Rate: 18 Laboratory Tests 11/15/22 18:02: White Blood Count 8.0 Blood Pressure 136 /78 Mean: 97 Laboratory Tests 11/15/22 18:02: Creatinine 0.96, Platelet Count 249, Total Bilirubin 0.2 Results/Orders Lab Results Laboratory Tests Test 11/15/22 17:28 11/15/22 17:30 11/15/22 18:02 Range/Units Urine Color YELLOW Urine Clarity CLEAR Urine pH 6.0 5-9 Urine Specific [place] >=1.030 1.016-1.022 Urine Protein 1+ H NEGATIVE Urine Glucose (UA) NEGATIVE NEGATIVE Urine Ketones TRACE H NEGATIVE Urine Nitrite NEGATIVE NEGATIVE Urine Bilirubin 1+ H NEGATIVE Urine Urobilinogen 1.0 < = 1.0 MG/DL Urine Leukocyte Esterase NEGATIVE NEGATIVE Urine RBC (Auto) 1+ H NEGATIVE Urine RBC 0-2 /HPF Urine WBC 0-2 /HPF Urine Squamous Epithelial Cells 2-5 /HPF Urine Renal Epithelial Cells NONE /HPF Urine Crystals NONE /LPF Urine Bacteria FEW H /HPF Urine Casts NONE /LPF Urine Mucus SMALL H /LPF Urine Culture Indicated YES Influenza Type A (RT-PCR) Not Detected Not Detecte Influenza Type B (RT-PCR) Not Detected Not Detecte SARS-CoV-2 RNA (RT-PCR) Detected H Not Detecte White Blood Count 8.0 4.3-11.0 10^3/uL Red Blood Count 5.11 3.80-5.11 10^6/uL Hemoglobin 14.8 11.5-16.0 g/dL Hematocrit 43 35-52 % Mean Corpuscular Volume 85 80-99 fL Mean Corpuscular Hemoglobin 29 25-34 pg Mean Corpuscular Hemoglobin Concent 34 32-36 g/dL Red Cell Distribution Width 12.1 10.0-14.5 % Platelet Count 249 130-400 10^3/uL Mean Platelet Volume 10.3 9.0-12.2 fL Immature Granulocyte % (Auto) 0 % Neutrophils (%) (Auto) 76 H 42-75 % Lymphocytes (%) (Auto) 12 12-44 % Monocytes (%) (Auto) 10 0-12 % Eosinophils (%) (Auto) 2 0-10 % Basophils (%) (Auto) 0 0-10 % Neutrophils # (Auto) 6.1 1.8-7.8 10^3/uL Lymphocytes # (Auto) 0.9 L 1.0-4.0 10^3/uL Monocytes # (Auto) 0.8 0.0-1.0 10^3/uL Eosinophils # (Auto) 0.1 0.0-0.3 10^3/uL Basophils # (Auto) 0.0 0.0-0.1 10^3/uL Immature Granulocyte # (Auto) 0.0 0.0-0.1 10^3/uL Sodium Level 138 135-145 MMOL/L Potassium Level 3.8 3.6-5.0 MMOL/L Chloride Level 103 98-107 MMOL/L Carbon Dioxide Level 23 21-32 MMOL/L Anion Gap 12 5-14 MMOL/L Blood Urea Nitrogen 11 7-18 MG/DL Creatinine 0.96 0.60-1.30 MG/DL Estimat Glomerular Filtration Rate 81 BUN/Creatinine Ratio 11 Glucose Level 107 H 70-105 MG/DL Calcium Level 9.3 8.5-10.1 MG/DL Corrected Calcium 9.0 8.5-10.1 MG/DL Total Bilirubin 0.2 0.1-1.0 MG/DL Aspartate Amino Transf (AST/SGOT) 18 5-34 U/L Alanine Aminotransferase (ALT/SGPT) 19 0-55 U/L Alkaline Phosphatase 67 40-136 U/L Total Creatine Kinase 80 29-168 U/L Total Protein 7.7 6.4-8.2 GM/DL Albumin 4.4 3.2-4.5 GM/DL My Orders Orders - ALYCIA BARRAZA SUPERVISOR TRAIN [employer]PERATIONS Ua Culture If Indicated (11/15/22 16:59) Covid 19 Inhouse Test (11/15/22 17:33) Influenza A And B By Pcr (11/15/22 17:33) Ed Iv/Invasive Line Start (11/15/22 17:44) Cbc With Automated Diff (11/15/22 17:44) Comprehensive Metabolic Panel (11/15/22 17:44) Creatine Kinase (11/15/22 17:44) Ns Iv 1000 Ml (Sodium Chloride 0.9%) (11/15/22 17:45) Urine Culture (11/15/22 17:28) Vital Signs/I&O 11/15/22 17:11 Temp 36.8 Pulse 133 Resp 18 B/P (MAP) 136/78 (97) O2 Delivery Room Air Capillary Refill : Less Than 3 Seconds Blood Pressure Mean: 97 Departure Impression Primary Impression: COVID-19 Disposition: 01 HOME, SELF-CARE Condition: Improved Departure-Patient Inst. Decision time for Depature: 18:32 Referrals: [facility] (PCP/Family) Primary Care Physician Patient Instructions: COVID-19 Overview Add. Discharge Instructions: Plan: 1. Discharge home. 2. Stay home for 5 days and then mask when in public for additional 5 days. If you are still running fever, you will need to stay home until you are fever free. 3. Wash your hands frequently, disinfect surfaces at home. Try to isolate yourself from others in the house as much as you are able. 4. Clean areas that may have blood, stool, or body fluids on them. 5. Cover your mouth and nose when you cough or sneeze, throw away tissues, and wash hands immediately. 6. Return to ER if you develop: trouble breathing, persistent pain or pressure in the chest, new confusion, inability to wake or stay awake, pale, vinson, blue- colored skin, lips, or nail beds depending on skin tone. 7. Return to ER for any other new, concerning, or worsening symptoms. All discharge instructions reviewed with patient and/or family. Voiced understanding. ALYCIA BARRAZA SUPERVISOR TRAIN OPERATIONS Nov 15, 2022 17:45
[2022-11-15 17:50] LABS: BACTERIA,URINE FEW /HPF; RBC,URINE 0-2 /HPF; WBC,URINE 0-2 /HPF
[2022-11-15 18:08] LABS: BASOPHILS % (AUTO) 0 % (0-10); EOSINOPHILS # (AUTO) 0.1 10^3/uL (0.0-0.3); EOSINOPHILS % (AUTO) 2 % (0-10); HEMATOCRIT 43 % (35-52); HEMOGLOBIN 14.8 g/dL (11.5-16.0); LYMPHOCYTES # (AUTO) 0.9 10^3/uL (1.0-4.0); LYMPHOCYTES % (AUTO) 12 % (12-44); MEAN CORPUSCULAR HEMOGLOBIN 29 pg (25-34); MEAN CORPUSCULAR HGB CONC 34 g/dL (32-36); MEAN CORPUSCULAR VOLUME 85 fL (80-99); MEAN PLATELET VOLUME 10.3 fL (9.0-12.2); MONOCYTES # (AUTO) 0.8 10^3/uL (0.0-1.0); MONOCYTES % (AUTO) 10 % (0-12); NEUTROPHILS # (AUTO) 6.1 10^3/uL (1.8-7.8); NEUTROPHILS % (AUTO) 76 % (42-75); PLATELET COUNT 249 10^3/uL (130-400)
[2022-11-15 18:21] LABS: ALBUMIN 4.4 GM/DL (3.2-4.5); POTASSIUM 3.8 MMOL/L (3.6-5.0)
[2022-11-15 18:22] LABS: CALCIUM 9.3 MG/DL (8.5-10.1)
[2022-11-15 18:24] LABS: TOTAL PROTEIN 7.7 GM/DL (6.4-8.2)
[2022-11-15 18:25] LABS: BILIRUBIN,TOTAL 0.2 MG/DL (0.1-1.0)
[2022-11-15 18:27] LABS: CREATININE SERUM 0.96 MG/DL (0.60-1.30)
[2022-11-15 19:01] VITALS: BP 127/66
== END 2022-11-15 19:01 | disposition home or self-care (01) ==
LOC: EDUNIT# 16:57 → ER 16:58
DX: U07.1 COVID-19 (principal); R51.9 Headache, unspecified; F17.210 Nicotine dependence, cigarettes, uncomplicated; Z28.311 Partially vaccinated for COVID-19
CPT/HCPCS: 36415; 80053; 81000; 82550; 85025; 87088; 87636; 99283

== ENCOUNTER 2022-11-21 16:39 | Emergency (ER) | payer BC ==
[~2022-11-21] VITALS: Ht 167 cm; Wt 79.0 kg
--- NOTE | 2022-11-21 17:34 | Diagnostic Imaging Report ---
EXAMINATION: Chest radiograph, portable AP view. DATE: 11/21/2022 5:29 PM INDICATION: 32-year-old female, shortness of breath. Cough. COMPARISON: September 15, 2022. FINDINGS: Heart size and mediastinal contours are unchanged. There is no identified pneumothorax. There is no pleural effusion. There is no identified focal airspace consolidation. IMPRESSION: 1. No identified acute cardiopulmonary abnormality. Dictated by: Dictated on workstation # [id number]
[2022-11-21 17:45] LABS: POTASSIUM 3.4 MMOL/L (3.6-5.0)
[2022-11-21 17:46] LABS: CALCIUM 9.6 MG/DL (8.5-10.1)
[2022-11-21 17:51] LABS: CREATININE SERUM 0.75 MG/DL (0.60-1.30)
[2022-11-21] MEDS ORDERED: POTA10CA43 PO (17:57)
[2022-11-21] MEDS ORDERED: ONDA4TAB11 SL (17:57)
--- NOTE | 2022-11-21 17:58 | ED General ---
General Chief Complaint: COVID19 Suspect/Confirmed Stated Complaint: COVID+,HEADACHE,TINGLING EXTREMITIES Nursing Triage Note: Pt here with feelings of soa, tingling in her feet and legs, cp, cough, MENDEZ. States she was diagnosed with Covid on Nov.15. Took Tylenol around 1400 hours today. Source of Information: Patient Exam Limitations: No Limitations History of Present Illness Date Seen by Provider: Nov 21, 2022 Time Seen by Provider: 17:00 Initial Comments Patient is a 30-year-old female who presents to the emergency department for evaluation of shortness of air, tingling in her extremities, chest pain, cough, and headache. She was diagnosed with COVID on November 15. She last took a dose of Tylenol at 2 PM today. She feels like she is not getting any better. States the chest pain is worse with deep inspiration or coughing. States cough is nonproductive. Denies any focal numbness/weakness or vision change. Patient has not had a fever over the last few days. Allergies and Home Medications Allergies Coded Allergies: Penicillins (Unverified Allergy, Mild, PT ABLE TO TAKE ANCEF, 03/17/20) divalproex sodium (Verified Allergy, Unknown, 03/17/20) levofloxacin (Verified Adverse Reaction, Intermediate, 03/16/21) STATES MAKES HER FEEL LIKE HER THROAT IS CLOSING, MAKES IT HARD TO SPEAK diclofenac (Unverified Adverse Reaction, Unknown, Nausea, 07/18/22) GI upset, "Stomach problems" Patient Home Medication List Home Medication List Reviewed: Yes Cariprazine Hydrochloride (Vraylar) 1.5 Mg Capsule, (Reported) Entered as Reported by: ALLISON CHAPIN on 07/23/212134 Clonazepam (Clonazepam) 0.5 Mg Tablet, (Reported) Entered as Reported by: ALLISON CHAPIN on 07/23/212134 Ondansetron (Ondansetron Odt) 4 Mg Tab.rapdis, 4 MG SL Q4H PRN for NAUSEA/VOMITING Prescribed by: Raffy Herring on 11/21/221756 Potassium Chloride (Potassium Chloride) 10 Meq Capsule.er, 10 MEQ PO DAILY Prescribed by: Raffy Herring on 11/21/221756 Prednisone (Prednisone) 20 Mg Tab, 60 MG PO DAILY Prescribed by: Laura Blanchard on 11/3/22 1735 Prochlorperazine Maleate (Prochlorperazine Maleate) 10 Mg Tablet, 10 MG PO Q8H PRN for HEADACHE Prescribed by: Raffy Herring on 11/21/22 1807 Quetiapine Fumarate (Quetiapine Fumarate) 50 Mg Tablet, (Reported) Entered as Reported by: TOM ARDON on 09/19/20 1702 Review of Systems Review of Systems Constitutional: see HPI, malaise EENTM: no symptoms reported Respiratory: see HPI, cough Cardiovascular: see HPI, chest pain Gastrointestinal: no symptoms reported Genitourinary: no symptoms reported Musculoskeletal: no symptoms reported Skin: no symptoms reported Psychiatric/Neurological: See HPI, Headache Past Ctdkwug-Zmujfm-Jsvnyx Hx Immunizations Up To Date Tetanus Booster (TDap): Less than 5yrs PED Vaccines UTD: Yes First/Initial COVID19 Vaccinat: 2020- ONE DOSE Second COVID19 Vaccination Master: DOSE Third COVID19 Vaccination Date: DOSE Seasonal Allergies Seasonal Allergies: No Past Medical History Surgery/Hospitalization HX: HYSTERECTOMY, TONSILECTOMY, APPENDECTOMY, ENDOMETREOSIS, ANXIETY Surgeries: Yes (LAPAROTOMY; HYST ; LSO) Abdominal, Adenoidectomy, Appendectomy, Hysterectomy, Oophorectomy, Tonsillectomy Respiratory: Yes Asthma Cardiac: Yes (Hx. 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 Sexually Transmitted Disease: No HIV/AIDS: No Genitourinary: No Gastrointestinal: No Musculoskeletal: Yes (CHRONIC OPIATE USE; MULITPLE VARIOUS CHRONIC PAIN COMPLAINTS) Degenerate Disk Disease, Arthritis, Back Injury, Scoliosis, Chronic Back Pain Endocrine: No HEENT: Yes (CHRONIC DENTAL PAIN/EXTENSIVE DENTAL DECAY) Cancer: No Psychosocial: Yes (EXTENSIVE PSYCH HISTORY;BENZODIAZEPINE ABUSE) Pseudo Seizures, Anxiety, PTSD, Bipolar, Depression Integumentary: No Blood Disorders: No Adverse Reaction/Blood Tranf: No Family Medical History Family history: Hypertension (mother, MGM, and PGM) Heart disease (mother and father) History of - anemia (family Hx of blood transfusions) Infertile Kidney disease (MGM) Physical Exam Vital Signs Vital Signs - First Documented 11/21/22 16:53 Temp 36.3 Pulse 104 Resp 20 B/P (MAP) 147/98 (114) Pulse Ox 98 O2 Delivery Room Air Capillary Refill : Less Than 3 Seconds Height, Weight, BMI Height: 5'6.00" Weight: 130lbs. 0.0oz. 58.125279ff; 28.00 BMI Method:Stated General Appearance: No Apparent Distress, WD/WN HEENT: PERRL/EOMI, TMs Normal, Normal ENT Inspection, Pharynx Normal Neck: Full Range of Motion, Normal Inspection, Non Tender, Supple Respiratory: Chest Non Tender, Lungs Clear, Normal Breath Sounds, No Accessory Muscle Use, No Respiratory Distress Cardiovascular: Regular Rate, Rhythm, Normal Peripheral Pulses Gastrointestinal: Non Tender, Soft Neurologic/Psychiatric: Alert, Oriented x3, No Motor/Sensory Deficits, Normal Mood/Affect Skin: Normal Color, Warm/Dry Progress/Results/Core Measures Suspected Sepsis SIRS Temperature: Pulse: 104 Respiratory Rate: 20 Blood Pressure 147 /98 Mean: 114 Laboratory Tests 11/21/22 17:21: Creatinine 0.75 Results/Orders Lab Results Laboratory Tests Test 11/21/22 17:21 Range/Units Sodium Level 138 135-145 MMOL/L Potassium Level 3.4 L 3.6-5.0 MMOL/L Chloride Level 103 98-107 MMOL/L Carbon Dioxide Level 24 21-32 MMOL/L Anion Gap 11 5-14 MMOL/L Blood Urea Nitrogen 14 7-18 MG/DL Creatinine 0.75 0.60-1.30 MG/DL Estimat Glomerular Filtration Rate 108 BUN/Creatinine Ratio 19 Glucose Level 106 H 70-105 MG/DL Calcium Level 9.6 8.5-10.1 MG/DL My Orders Orders - RAFFY HERRING APRN Chest 1 View, Ap/Pa Only (11/21/22 17:17) Basic Metabolic Panel (11/21/22 17:17) Vital Signs/I&O 11/21/22 11/21/22 11/21/22 16:53 16:58 18:11 Temp 36.3 36.3 Pulse 104 104 Resp 20 20 B/P (MAP) 147/98 (114) 147/98 Pulse Ox 98 98 O2 Delivery Room Air Room Air Room Air Capillary Refill : Less Than 3 Seconds Blood Pressure Mean: 114 Progress Note : Progress Note Patient is nontoxic and well-hydrated on exam. No focal neurologic deficits appreciated on exam. Adventitious lung sounds or increased work of breathing noted on exam. Vital signs are reassuring. Patient has equal strength in all 4 extremities. Order placed for chest x-ray and BMP. BMP ordered to assess for any electrolyte abnormality that may be leading to the patient's paresthesias. Chest x-ray is acutely negative on my read. Formal radiology report in agreement. BMP is largely unremarkable other than some mild hypokalemia. I had a lengthy discussion with patient regarding the reassuring work-up today in the ER. I reassured her that there were no acute findings noted today that are concerning for any emergent process. I told her we will place her on a short course of oral potassium repletion. I also will give her a prescription for Zofran for the nausea she is having intermittently. Patient then asked for something for her headache. I told her I would give her a prescription for Compazine to use as needed for the headache. Discussed importance of close follow-up with PCP. Return precautions for symptomology discussed. Patient verbalized understanding. Departure Impression Primary Impression: COVID-19 Additional Impression: Hypokalemia Disposition: 01 HOME, SELF-CARE Condition: Stable Departure-Patient Inst. Decision time for Depature: 17:55 Referrals: [facility] [place] (PCP/Family) Primary Care Physician Patient Instructions: COVID-19 ED Scripts Prochlorperazine Maleate (Prochlorperazine Maleate) 10 Mg Tablet 10 MG PO Q8H PRN for HEADACHE for 5 Days, #15 TAB 0 Refills Prov: HERRINGRAFFY JUAREZ APRN 11/21/22 Potassium Chloride (Potassium Chloride) 10 Meq Capsule.er 10 MEQ PO DAILY for 5 Days, #5 CAP 0 Refills Prov: HERRINGRAFFY JUAREZ SECONDARY MARKET MANAGER 11/21/22 Ondansetron (Ondansetron Odt) 4 Mg Tab.rapdis 4 MG SL Q4H PRN for NAUSEA/VOMITING for 5 Days, #20 TAB 0 Refills Prov: HERRINGRAFFY JUAREZ SECONDARY MARKET MANAGER 11/21/22 RAFFY HERRING APRN Nov 21, 2022 17:58
[2022-11-21] MEDS ORDERED: PROC10TA10 PO (18:07)
[2022-11-21 18:11] VITALS: BP 147/98
== END 2022-11-21 18:12 | disposition home or self-care (01) ==
LOC: EDUNIT# 16:39 → ER 16:41
DX: U07.1 COVID-19 (principal); E87.6 Hypokalemia; Z73.0 Burn-out; Z28.311 Partially vaccinated for COVID-19
CPT/HCPCS: 36415; 71045; 80048

== ENCOUNTER 2023-03-16 18:27 | Emergency (ER) | payer BC ==
[~2023-03-16] VITALS: Ht 167 cm; Wt 70.0 kg
[~2023-03-16 18:27] MED LIST changes: +LIDO15SO6 MM; -LIDO20SO23 MM; +POTA10CA44 PO; +PROC10TA10 PO
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
--- NOTE | 2023-03-16 19:21 | Diagnostic Imaging Report ---
EXAMINATION: Left shoulder radiograph EXAM DATE: 03/16/2023 7:17 PM COMPARISON: None available. HISTORY: Left shoulder pain TECHNIQUE: 3 views FINDINGS: There is no acute fracture, dislocation, or destructive osseous process. The joint spaces are normal. The soft tissues are normal. IMPRESSION: 1. No acute osseous abnormality. Dictated by: Dictated on workstation # [id number]
[2023-03-16] MEDS ORDERED: ORPHENADRINE 60 MG/2 ML (NORFLEX) AMP (ED ONLY) IM ONE (19:30)
[2023-03-16 20:15] VITALS: BP 113/75
== END 2023-03-16 20:15 | disposition home or self-care (01) ==
LOC: EDUNIT# 18:27 → ER 18:30
DX: S40.012A Contusion of left shoulder, initial encounter (principal); R10.31 Right lower quadrant pain; F17.210 Nicotine dependence, cigarettes, uncomplicated; Z90.49 Acquired absence of other specified parts of digestive tract; V89.2XXA Person injured in unspecified motor-vehicle accident, traffic, initial encounter; Y92.410 Unspecified street and highway as the place of occurrence of the external cause
CPT/HCPCS: 73030

== ENCOUNTER 2023-07-17 19:13 | Emergency (ER) | payer BC ==
[~2023-07-17] VITALS: Ht 167.7 cm; Wt 69.0 kg
[~2023-07-17 19:13] MED LIST changes: +LIDO15SO3 MM; -LIDO15SO6 MM; -ORPH100T PO; +ORPH100T3 PO; -POTA10CA44 PO; +POTA10CA84 PO
--- NOTE | 2023-07-17 19:44 | ED Cough/URI ---
General Chief Complaint: Cough/Cold/Flu Symptoms Stated Complaint: COUGH/CONGESTION/SOA Nursing Triage Note: Pt presents with c/o cough ans shortness of breath that worsens when she lays down. She states she's been ill since last week. She has been on cefdinir for a sinus infection last week, she reports monday she was tested for covid and it was negative. Pt reports fever yesterday, but not today. Source: patient Exam Limitations: no limitations (SYLVESTER PHILLIPS) History of Present Illness Date Seen by Provider: Jul 17, 2023 Time Seen by Provider: 19:41 Initial Comments Patient is a 32-year-old female who presents ED for chest tightness, shortness of breath and cough. She reports cough and shortness of breath over the past few days. Symptoms started about a week ago with nasal congestion sinus pressure. Diagnosed with sinus infection tested negative for COVID and was given cefdinir without much improvement. This has developed into a wet productive cough two days ago. She has been using albuterol inhaler without much improvement. History of asthma. She reports some wheezing. She reports nausea without vomiting or diarrhea. Subjective fever. Bodyaches chills wea kness. Denies history of coronary artery disease, CHF. Denies any leg swelling. Denies any recent travels or surgeries. She denies abdominal pain, current chest pain, headache, visual changes, unilateral muscle weakness or sensory changes. (SYLVESTER PHILLIPS) Allergies and Home Medications Allergies Coded Allergies: Penicillins (Unverified Allergy, Mild, PT ABLE TO TAKE ANCEF, 03/17/20) divalproex sodium (Verified Allergy, Unknown, 03/17/20) levofloxacin (Verified Adverse Reaction, Intermediate, 03/16/21) STATES MAKES HER FEEL LIKE HER THROAT IS CLOSING, MAKES IT HARD TO SPEAK diclofenac (Unverified Adverse Reaction, Unknown, Nausea, 07/18/22) GI upset, "Stomach problems" Patient Home Medication List Home Medication List Reviewed: Yes (SYLVESTER PHILLIPS) Cariprazine Hydrochloride (Vraylar) 1.5 Mg Capsule, (Reported) Entered as Reported by: ALLISON CHAPIN on 07/23/212134 Clonazepam (Clonazepam) 0.5 Mg Tablet, (Reported) Entered as Reported by: ALLISON CHAPIN on 07/23/212134 Doxycycline Monohydrate (Doxycycline Monohydrate) 100 Mg Tablet, 100 MG PO BID Prescribed by: VERONICA CHAVARRIA on 07/17/232108 Ondansetron (Ondansetron Odt) 4 Mg Tab.rapdis, 4 MG SL Q4H PRN for NAUSEA/VOMITING Prescribed by: Raffy Herring on 11/21/221756 Potassium Chloride (Potassium Chloride) 10 Meq Capsule.er, 10 MEQ PO DAILY Prescribed by: Raffy Herring on 11/21/221756 Prednisone (Prednisone) 20 Mg Tab, 60 MG PO DAILY Prescribed by: Laura Blanchard on 09/15/221734 Prednisone (Prednisone) 10 Mg Tab.ds.pk, 10 MG PO DAILY Prescribed by: VERONICA CHAVARRIA on 07/17/232108 Prochlorperazine Maleate (Prochlorperazine Maleate) 10 Mg Tablet, 10 MG PO Q8H PRN for HEADACHE Prescribed by: Raffy Herring on 11/21/221806 Quetiapine Fumarate (Quetiapine Fumarate) 50 Mg Tablet, (Reported) Entered as Reported by: TOM ARDON on 09/19/20 1702 Review of Systems Review of Systems Constitutional: No chills, No diaphoresis; fever, malaise, weakness EENTM: No ear pain, No blurred vision, No hoarseness, No mouth pain, No mouth swelling Respiratory: cough, short of breath Cardiovascular: chest pain Gastrointestinal: No abdominal pain, No diarrhea, No nausea, No vomiting Genitourinary: No decreased output, No discharge Musculoskeletal: No back pain, No joint pain Skin: No change in color, No change in hair/nails (SYLVESTER PHILLIPS) All Other Systems Reviewed Negative Unless Noted: Yes (SYLVESTER PHILLIPS) Past Rlizgmx-Ujlbcr-Istpdv Hx Immunizations Up To Date Tetanus Booster (TDap): Less than 5yrs PED Vaccines UTD: Yes First/Initial COVID19 Vaccinat: 2020- ONE DOSE Second COVID19 Vaccination Master: 2020- ONE DOSE Third COVID19 Vaccination Date: 2020- ONE DOSE (SYLVESTER PHILLIPS) Seasonal Allergies Seasonal Allergies: No (SYLVESTER PHILLIPS) Past Medical History Surgery/Hospitalization HX: HYSTERECTOMY, TONSILECTOMY, APPENDECTOMY, ENDOMETREOSIS, ANXIETY Surgeries: Yes (LAPAROTOMY; HYST ; LSO) Abdominal, Adenoidectomy, Appendectomy, Hysterectomy, Oophorectomy, Tonsillectomy Respiratory: Yes Asthma Cardiac: Yes (Hx. 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 Sexually Transmitted Disease: No HIV/AIDS: No Genitourinary: No Gastrointestinal: No Musculoskeletal: Yes (CHRONIC OPIATE USE; MULITPLE VARIOUS CHRONIC PAIN COMPLAINTS) Degenerate Disk Disease, Arthritis, Back Injury, Scoliosis, Chronic Back Pain Endocrine: No HEENT: Yes (CHRONIC DENTAL PAIN/EXTENSIVE DENTAL DECAY) Cancer: No Psychosocial: Yes (EXTENSIVE PSYCH HISTORY;BENZODIAZEPINE ABUSE) Pseudo Seizures, Anxiety, PTSD, Bipolar, Depression Integumentary: No Blood Disorders: No Adverse Reaction/Blood Tranf: No (SYLVESTER PHILLIPS) Family Medical History Family history: Hypertension (mother, MGM, and PGM) Heart disease (mother and father) History of - anemia (family Hx of blood transfusions) Infertile Kidney disease (MGM) Physical Exam Vital Signs - First Documented 07/17/23 07/17/23 19:23 20:34 Temp 36.7 Pulse 94 Resp 18 B/P (MAP) 126/80 (95) Pulse Ox 97 O2 Delivery Room Air (CALVIN JACOBO MD) Capillary Refill : Less Than 3 Seconds (SYLVESTER PHILLIPS) Height: 5'6.00" Weight: 130lbs. 0.0oz. 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, no motor/sensory deficits, alert, normal mood/affect, oriented x 3 Skin: normal color, warm/dry (SYLVESTER PHILLIPS) Progress/Results/Core Measures Suspected Sepsis SIRS Temperature: Pulse: 94 Respiratory Rate: 18 Blood Pressure 126 /80 Mean: 95 (SYLVESTER PHILLIPS) Results/Orders Lab Results Laboratory Tests Test 07/17/23 19:46 Range/Units Influenza Type A (RT-PCR) Not Detected Not Detecte Influenza Type B (RT-PCR) Not Detected Not Detecte SARS-CoV-2 RNA (RT-PCR) Not Detected Not Detecte (CAVLIN JACOBO MD) Medications Given in ED Current Medications Medications Dose Ordered Sig/Antonia Route Start Time Stop Time Status Last Admin Dose Admin Albuterol/ Ipratropium 3 ml ONCE ONCE INH 07/17/23 19:45 07/17/23 19:46 DC 07/17/23 20:32 3 ML Methylprednisolone Sodium Succinate 80 mg ONCE ONCE IM 07/17/23 19:45 07/17/23 19:46 DC 07/17/23 19:57 80 MG (CALVIN JACOBO MD) Vital Signs/I&O 07/17/23 07/17/23 07/17/23 19:23 20:34 21:58 Temp 36.7 Pulse 94 Resp 18 B/P (MAP) 126/80 (95) 112/80 Pulse Ox 97 O2 Delivery Room Air (CALVIN JACOBO MD) Vital Signs/I&O Capillary Refill : Less Than 3 Seconds (SYLVESTER PHILLIPS) Blood Pressure Mean: 95 Departure Communication (PCP) Patient with flulike symptoms for the past week. Started with nasal congestion diagnosed with a sinus infection. No improvement. Developed into a cough with shortness of breath and chest tightness. History of smoking. History of asthma denies COPD. No known cardiac history. She states she gets chest tightness with cough with some shortness of breath. Reviewed previous ER visits, H&P, lab testing. Differential diagnosis, viral syndrome, pneumonia, bronchitis, asthma exacerbation. She does not have some wheezing throughout concern for pneumonia versus bronchitis. COVID influenza was ordered which were negative. She received IM Solu-Medrol 80 mg and a DuoNeb breathing treatment with some improvement. Her oxygen remained over 96% on room air. She was afebrile. Heart rate of 94. No abdominal tenderness. No vomiting or diarrhea. No paresthesia or concern for electrolyte abnormality. She is not hypoxic or tachycardic concern for PE. No known cardiac history. Chest x-ray concerning for bronchitis. No consolidation or pneumothorax. Observe patient here in the ED. Patient symptoms continue to improve. Concern for bronchitis. Patient has albuterol inhaler at home. She finished her last dose of prednisone yesterday. I will provide a taper dose of prednisone. Will discharge with doxycycline. Continue with albuterol inhaler. If any worsening symptoms such as difficulty breathing, chest pain, shortness of breath to return back to ED (SYLVESTER PHILLIPS) Impression Primary Impression: Bronchitis Disposition: 01 HOME, SELF-CARE Condition: Stable Departure-Patient Inst. Decision time for Depature: 21:08 (SYLVESTER PHILLIPS) Referrals: [facility] [place] (PCP/Family) Primary Care Physician Patient Instructions: Bronchitis, Adult ED Add. Discharge Instructions: Taper off the steroids. Recommend taking doxycycline. continue with your albuterol inhaler. If any worsening symptoms return back to ED. All discharge instructions reviewed with patient and/or family. Voiced understanding. Scripts Prednisone (Prednisone) 10 Mg Tab.ds.pk 10 MG PO DAILY, #21 EA Take 6 tabs(60mg)daily,decrease by 1 tab(10MG)daily. Prov: SYLVESTER PHILLIPS 07/17/23 Doxycycline Monohydrate (Doxycycline Monohydrate) 100 Mg Tablet 100 MG PO BID for 7 Days, #14 TAB Prov: SYLVESTER PHILLIPS 07/17/23 Work/School Note: Work Release Form Date Seen in the Emergency Department: Jul 17, 2023 Return to Work: Jul 20, 2023 ATTENDING PHYSICIAN NOTE: I was physically present as attending physician in the emergency department during the care of this patient, but I was not directly involved in the decision making or delivery of care for this patient. (CALVIN JACOBO MD) SYLVESTER PHILLIPS Jul 17, 2023 19:44 CALVIN JACOBO MD Jul 18, 2023 03:33
[2023-07-17] MEDS ORDERED: RT-Ipratropium/Albuterol NEB 3 ML VIAL INH ONE (19:45)
[2023-07-17] MEDS ORDERED: methylPREDNISolone INJ 40 MG/ML VIAL IM ONE (19:45)
--- NOTE | 2023-07-17 20:46 | Diagnostic Imaging Report ---
INDICATION: 32-year-old female with cough, shortness of breath. COMPARISONS: 11/21/2022 FINDINGS: Single view of the chest shows the cardiac contour to be normal. There is prominent central markings with peribronchial cuffing. Some central venous congestion seen. Some perihilar and bibasilar infiltrates but no confluent consolidations. There is no effusion or pneumothorax. Soft tissues and bony thorax are unremarkable. IMPRESSION: 1. There is prominent central lung markings as may be seen with some bronchitis. There is some perihilar and bibasilar atelectatic infiltrates but no confluent consolidations. 2. An element of central venous congestion may also be present. Dictated by: Dictated on workstation # [id number]
[2023-07-17] MEDS ORDERED: PRED10TA22 PO (21:09)
[2023-07-17] MEDS ORDERED: DOXY100T31 PO (21:09)
[2023-07-17 21:58] VITALS: BP 112/80
== END 2023-07-17 21:58 | disposition home or self-care (01) ==
LOC: EDUNIT# 19:13 → ER 19:15
DX: J40 Bronchitis, not specified as acute or chronic (principal); Z20.822 Contact with and (suspected) exposure to COVID-19; Z28.311 Partially vaccinated for COVID-19
CPT/HCPCS: 71045; 87636; 94664

== ENCOUNTER 2023-08-21 19:11 | Emergency (ER) | payer BC ==
[~2023-08-21] VITALS: Ht 167 cm; Wt 68.0 kg
[~2023-08-21 19:11] MED LIST changes: +DICY-11 PO; -DICY10CA12 PO; +DOXY100T31 PO; +PRED10TA22 PO; -PROC10TA10 PO; +PROC10TA15 PO
--- NOTE | 2023-08-21 19:32 | ED Chest Pain ---
General Chief Complaint: Chest Pain Stated Complaint: CHEST PAIN, BODY ACHES, TIRED Source: patient Exam Limitations: no limitations History of Present Illness Date Seen by Provider: Aug 21, 2023 Time Seen by Provider: 19:30 Initial Comments Patient is a 33-year-old female who presents to ED with multiple complaints. Symptoms started on Monday with body aches, decreased appetite, increased irritability, tiredness and wanting to sleep. She reports a low-grade temperature. She reports substernal chest pain that started on Monday. Described as sharp without radiation. Pain is intermittent. Intermittent shortness of breath with a dry nonproductive cough. She reports wheezing. History of smoking. She states her son has a similar type infection. She denies any nausea vomiting or diarrhea or urinary symptoms. Denies take any medication at home. She denies history of any autoimmune diseases. She denies any recent travels, leg pain, leg swelling or control. Patient denies any sore throat, ear pain, abdominal pain, rash, neck pain, visual changes, unilateral muscle weakness or sensory changes. No known cardiac history. Denies history of diabetes, asthma, COPD Allergies and Home Medications Allergies Coded Allergies: Penicillins (Unverified Allergy, Mild, PT ABLE TO TAKE ANCEF, 03/17/20) divalproex sodium (Verified Allergy, Unknown, 03/17/20) levofloxacin (Verified Adverse Reaction, Intermediate, 03/16/21) STATES MAKES HER FEEL LIKE HER THROAT IS CLOSING, MAKES IT HARD TO SPEAK diclofenac (Unverified Adverse Reaction, Unknown, Nausea, 07/18/22) GI upset, "Stomach problems" Patient Home Medication List Home Medication List Reviewed: Yes Cariprazine Hydrochloride (Vraylar) 1.5 Mg Capsule, (Reported) Entered as Reported by: ALLISON CHAPIN on 07/23/212134 Clonazepam (Clonazepam) 0.5 Mg Tablet, (Reported) Entered as Reported by: ALLISON CHAPIN on 07/23/212134 Doxycycline Monohydrate (Doxycycline Monohydrate) 100 Mg Tablet, 100 MG PO BID Prescribed by: VERONICA CHAVARRIA on 07/17/232108 Ondansetron (Ondansetron Odt) 4 Mg Tab.rapdis, 4 MG SL Q4H PRN for NAUSEA/VOMITING Prescribed by: Raffy Herring on 11/21/22 175 Ondansetron (Ondansetron Odt) 4 Mg Tab.rapdis, 4 MG SL Q4H PRN for NAUSEA/VOMITING Prescribed by: VERONICA CHAVARRIA on 08/21/232028 Potassium Chloride (Potassium Chloride) 10 Meq Capsule.er, 10 MEQ PO DAILY Prescribed by: Raffy Herring on 11/21/22 175 Prednisone (Prednisone) 20 Mg Tab, 60 MG PO DAILY Prescribed by: Laura Blanchard on 09/15/22 173 Prednisone (Prednisone) 10 Mg Tab.ds.pk, 10 MG PO DAILY Prescribed by: VERONICA CHAVARRIA on 07/17/23 210 Prochlorperazine Maleate (Prochlorperazine Maleate) 10 Mg Tablet, 10 MG PO Q8H PRN for HEADACHE Prescribed by: Raffy Herring on 11/21/22 180 Quetiapine Fumarate (Quetiapine Fumarate) 50 Mg Tablet, (Reported) Entered as Reported by: TOM ARDON on 09/19/20 170 Review of Systems Review of Systems Constitutional: chills; No diaphoresis; fever, malaise, weakness EENTM: No Double Vision, No Eye Pain Respiratory: Cough Cardiovascular: Chest Pain Gastrointestinal: Denies Abdominal Pain Genitourinary: Denies Burning, Denies Discharge, Denies Drainage, Denies Frequency, Denies Flank Pain Musculoskeletal: No back pain, No joint pain Skin: No change in color, No change in hair/nails All Other Systems Reviewed Negative Unless Noted: Yes Past Jrekkwx-Anshjb-Fpmmng Hx Immunizations Up To Date Tetanus Booster (TDap): Less than 5yrs PED Vaccines UTD: Yes First/Initial COVID19 Vaccinat: 2020- ONE DOSE Second COVID19 Vaccination Master: 2020- ONE DOSE Third COVID19 Vaccination Date: 2020- ONE DOSE Seasonal Allergies Seasonal Allergies: No Past Medical History Surgery/Hospitalization HX: HYSTERECTOMY, TONSILECTOMY, APPENDECTOMY, ENDOMETREOSIS, ANXIETY Surgeries: Yes (LAPAROTOMY; HYST ; LSO) Abdominal, Adenoidectomy, Appendectomy, Hysterectomy, Oophorectomy, T onsillectomy Respiratory: Yes Asthma Cardiac: Yes (Hx. 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 Sexually Transmitted Disease: No HIV/AIDS: No Genitourinary: No Gastrointestinal: No Musculoskeletal: Yes (CHRONIC OPIATE USE; MULITPLE VARIOUS CHRONIC PAIN COMPLAINTS) Degenerate Disk Disease, Arthritis, Back Injury, Scoliosis, Chronic Back Pain Endocrine: No HEENT: Yes (CHRONIC DENTAL PAIN/EXTENSIVE DENTAL DECAY) Cancer: No Psychosocial: Yes (EXTENSIVE PSYCH HISTORY;BENZODIAZEPINE ABUSE) Pseudo Seizures, Anxiety, PTSD, Bipolar, Depression Integumentary: No Blood Disorders: No Adverse Reaction/Blood Tranf: No Family Medical History Family history: Hypertension (mother, MGM, and PGM) Heart disease (mother and father) History of - anemia (family Hx of blood transfusions) Infertile Kidney disease (MGM) Physical Exam Vital Signs Vital Signs - First Documented 08/21/23 19:16 Temp 36.8 Pulse 78 Resp 14 B/P (MAP) 155/96 (115) Pulse Ox 98 O2 Delivery Room Air Capillary Refill : Height, Weight, BMI Height: 5'6.00" Weight: 130lbs. 0.0oz. [id number]; 24.00 BMI Method:Stated General Appearance: No Apparent Distress, WD/WN HEENT: PERRL/EOMI, TMs Normal, Normal ENT Inspection, Pharynx Normal Neck: Full Range of Motion, Normal Inspection, Non Tender, Supple Respiratory: Chest Non Tender, Normal Breath Sounds, No Accessory Muscle Use, No Respiratory Distress, Wheezing Cardiovascular: Regular Rate, Rhythm, No Edema, No Gallop, No JVD Gastrointestinal: Normal Bowel Sounds, No Organomegaly Extremity: Normal Capillary Refill, Normal Inspection, Normal Range of Motion, Non Tender Neurologic/Psychiatric: Alert, Oriented x3, No Motor/Sensory Deficits, Normal Mood/Affect, pulling unit floorhand II-XII Norm as Tested Skin: Normal Color, Warm/Dry Progress/Results/Core Measures Results/Orders Lab Results Laboratory Tests Test 08/21/23 19:22 08/21/23 19:41 08/21/23 19:42 Range/Units White Blood Count 7.4 4.3-11.0 10^3/uL Red Blood Count 4.88 3.80-5.11 10^6/uL Hemoglobin 14.4 11.5-16.0 g/dL Hematocrit 43 35-52 % Mean Corpuscular Volume 88 80-99 fL Mean Corpuscular Hemoglobin 30 25-34 pg Mean Corpuscular Hemoglobin Concent 34 32-36 g/dL Red Cell Distribution Width 11.9 10.0-14.5 % Platelet Count 208 130-400 10^3/uL Mean Platelet Volume 10.9 9.0-12.2 fL Immature Granulocyte % (Auto) 0 % Neutrophils (%) (Auto) 38 L 42-75 % Lymphocytes (%) (Auto) 48 H 12-44 % Monocytes (%) (Auto) 12 0-12 % Eosinophils (%) (Auto) 2 0-10 % Basophils (%) (Auto) 0 0-10 % Neutrophils # (Auto) 2.8 1.8-7.8 10^3/uL Lymphocytes # (Auto) 3.5 1.0-4.0 10^3/uL Monocytes # (Auto) 0.9 0.0-1.0 10^3/uL Eosinophils # (Auto) 0.2 0.0-0.3 10^3/uL Basophils # (Auto) 0.0 0.0-0.1 10^3/uL Immature Granulocyte # (Auto) 0.0 0.0-0.1 10^3/uL Prothrombin Time 13.3 12.2-14.7 SEC INR Comment 1.0 0.8-1.4 Activated Partial Thromboplast Time 31 24-35 SEC Sodium Level 141 135-145 MMOL/L Potassium Level 3.6 3.6-5.0 MMOL/L Chloride Level 106 98-107 MMOL/L Carbon Dioxide Level 23 21-32 MMOL/L Anion Gap 12 5-14 MMOL/L Blood Urea Nitrogen 13 7-18 MG/DL Creatinine 0.86 0.60-1.30 MG/DL Estimat Glomerular Filtration Rate 91 BUN/Creatinine Ratio 15 Glucose Level 85 70-105 MG/DL Calcium Level 9.4 8.5-10.1 MG/DL Corrected Calcium 9.0 8.5-10.1 MG/DL Magnesium Level 2.1 1.6-2.4 MG/DL Total Bilirubin 0.2 0.1-1.0 MG/DL Aspartate Amino Transf (AST/SGOT) 12 5-34 U/L Alanine Aminotransferase (ALT/SGPT) 10 0-55 U/L Alkaline Phosphatase 61 40-136 U/L Myoglobin 17.3 10.0-92.0 NG/ML Troponin I < 0.028 <0.028 NG/ML Total Protein 7.6 6.4-8.2 GM/DL Albumin 4.5 3.2-4.5 GM/DL Lipase 30 8-78 U/L Serum Test, Qualitative NEGATIVE NEGATIVE Urine Color YELLOW Urine Clarity CLEAR Urine pH 6.5 5-9 Urine Specific [place] 1.020 1.016-1.022 Urine Protein NEGATIVE NEGATIVE Urine Glucose (UA) NEGATIVE NEGATIVE Urine Ketones NEGATIVE NEGATIVE Urine Nitrite NEGATIVE NEGATIVE Urine Bilirubin NEGATIVE NEGATIVE Urine Urobilinogen 0.2 < = 1.0 MG/DL Urine Leukocyte Esterase NEGATIVE NEGATIVE Urine RBC (Auto) NEGATIVE NEGATIVE Urine RBC NONE /HPF Urine WBC 0-2 /HPF Urine Squamous Epithelial Cells 0-2 /HPF Urine Crystals PRESENT H /LPF Urine Amorphous Sediment LARGE [place] URATES H /LPF Urine Bacteria TRACE /HPF Urine Casts PRESENT /LPF Urine Granular Casts 2-5 H /LPF Urine Mucus NEGATIVE /LPF Urine Culture Indicated NO Influenza Type A (RT-PCR) Not Detected Not Detecte Influenza Type B (RT-PCR) Not Detected Not Detecte SARS-CoV-2 RNA (RT-PCR) Not Detected Not Detecte My Orders Orders - SYLVESTER PHILLIPS PA Ekg Tracing (08/21/23 19:17) Covid 19 Inhouse Test (08/21/23 19:18) Influenza A And B By Pcr (08/21/23 19:18) Cbc And Automated Diff (08/21/23 19:28) Magnesium (08/21/23 19:28) Chest 1 View, Ap/Pa Only (08/21/23 19:28) Ekg Tracing (08/21/23 19:28) Comprehensive Metabolic Panel (08/21/23 19:28) Myoglobin Serum (08/21/23 19:28) Protime With Inr (08/21/23 19:28) Partial Thromboplastin Time (08/21/23 19:28) O2 (08/21/23 19:28) Monitor-Rhythm Ecg Trace Only (08/21/23 19:28) Ed Iv/Invasive Line Start (08/21/23 19:28) Lipase (10/9/23 19:28) Troponin I [place] (08/21/23 19:28) Ua Culture If Indicated (08/21/23 19:28) Hcg,Qualitative Serum (08/21/23 19:33) Vital Signs/I&O 08/21/23 08/21/23 08/21/23 19:16 19:34 19:46 Temp 36.8 36.8 Pulse 78 78 Resp 14 14 B/P (MAP) 155/96 (115) 121/82 Pulse Ox 98 98 O2 Delivery Room Air Room Air Room Air Comment Sinus rhythm, low QRS voltage in pericardial leads, possible right ventricular conduction delay, 76 bpm, QRS duration 85 MS, QTc 398 MS. Departure Communication (PCP) Patient presents ED with flulike symptoms. Patient concern for substernal chest pain with shortness of breath. Differential diagnosis viral syndrome, pneumonia, ACS, pericarditis, myocarditis. Cardiac work-up was initiated. She refused anything for pain but her vital signs were stable. She was not tachycardic or hypoxic. Low risk factors for PE. EKG showed sinus rhythm without evidence of ST elevation or depression or arrhythmia. Low cardiac risk factors. CBC CMP was grossly unremarkable. COVID influenza was negative. Normal cardiac enzymes. Chest x-ray was negative for pneumonia, pneumothorax, pleural effusion. Sit down and discussed all results with patient. Low suspicious for cardiac in nature. No family history of sudden cardiac . Likely more viral in nature. At this time recommend conservative treatment. Alternate Tylenol ibuprofen. Recommend hydration. If any worsening symptoms such as severe chest pain fever, shortness of breath return back to ED. She states she is felt much better at this time and will follow-up outpatient only. Follow-up with PCP in 2 to 3 days for evaluation Impression Primary Impression: Viral syndrome Disposition: HOME, SELF-CARE Condition: Stable Departure-Patient Inst. Decision time for Depature: 20:29 Referrals: [facility] (PCP/Family) Primary Care Physician Patient Instructions: Viral Syndrome (DC) Add. Discharge Instructions: Recommend staying hydrated. Drink plenty of fluids. If any worsening symptoms return back to ED. All discharge instructions reviewed with patient and/or family. Voiced understanding. Scripts Ondansetron (Ondansetron Odt) 4 Mg Tab.rapdis 4 MG SL Q4H PRN for NAUSEA/VOMITING, #6 TAB Prov: SYLVESTER PHILLIPS 08/21/23 Work/School Note: Work Release Form Date Seen in the Emergency Department: Aug 21, 2023 SYLVESTRE PHILLIPS Aug 21, 2023 19:32
[2023-08-21 19:40] LABS: BASOPHILS % (AUTO) 0 % (0-10); EOSINOPHILS # (AUTO) 0.2 10^3/uL (0.0-0.3); EOSINOPHILS % (AUTO) 2 % (0-10); HEMATOCRIT 43 % (35-52); HEMOGLOBIN 14.4 g/dL (11.5-16.0); LYMPHOCYTES # (AUTO) 3.5 10^3/uL (1.0-4.0); LYMPHOCYTES % (AUTO) 48 % (12-44); MEAN CORPUSCULAR HEMOGLOBIN 30 pg (25-34); MEAN CORPUSCULAR HGB CONC 34 g/dL (32-36); MEAN CORPUSCULAR VOLUME 88 fL (80-99); MEAN PLATELET VOLUME 10.9 fL (9.0-12.2); MONOCYTES # (AUTO) 0.9 10^3/uL (0.0-1.0); MONOCYTES % (AUTO) 12 % (0-12); NEUTROPHILS # (AUTO) 2.8 10^3/uL (1.8-7.8); NEUTROPHILS % (AUTO) 38 % (42-75); PLATELET COUNT 208 10^3/uL (130-400); WHITE BLOOD COUNT 7.4 10^3/uL (4.3-11.0)
[2023-08-21 19:45] LABS: PROTHROMBIN TIME PATIENT 13.3 SEC (12.2-14.7)
[2023-08-21 19:46] VITALS: BP 121/82
[2023-08-21 19:52] LABS: ALANINE AMINOTRANSFERASE 10 U/L (0-55); ALBUMIN 4.5 GM/DL (3.2-4.5); ALKALINE PHOSPHATASE 61 U/L (40-136); BILIRUBIN,TOTAL 0.2 MG/DL (0.1-1.0); BUN/CREATININE RATIO 15; CALCIUM 9.4 MG/DL (8.5-10.1); CARBON DIOXIDE 23 MMOL/L (21-32); CHLORIDE 106 MMOL/L (98-107); CREATININE SERUM 0.86 MG/DL (0.60-1.30); GFR ESTIMATED 91; GLUCOSE 85 MG/DL (70-105); LIPASE 30 U/L (8-78); MAGNESIUM 2.1 MG/DL (1.6-2.4); POTASSIUM 3.6 MMOL/L (3.6-5.0); SODIUM 141 MMOL/L (135-145); TOTAL PROTEIN 7.6 GM/DL (6.4-8.2)
[2023-08-21 20:00] LABS: BACTERIA,URINE TRACE /HPF; BILIRUBIN,URINE NEGATIVE (NEGATIVE); CLARITY,URINE CLEAR; COLOR,URINE YELLOW; GLUCOSE, URINE (UA) NEGATIVE (NEGATIVE); KETONES,URINE NEGATIVE (NEGATIVE); LEUKOCYTE ESTERASE ,URINE NEGATIVE (NEGATIVE); NITRITE,URINE NEGATIVE (NEGATIVE); PH,URINE 6.5 (5-9); PROTEIN,URINE NEGATIVE (NEGATIVE); WBC,URINE 0-2 /HPF
[2023-08-21 20:01] LABS: AMORPHOUS SEDIMENT,UR LARGE AMOR URATES /LPF; SQUAMOUS EPITHELIAL CELL,UR 0-2 /HPF
--- NOTE | 2023-08-21 20:20 | Diagnostic Imaging Report ---
EXAM: CHEST 1 VIEW, AP/PA ONLY INDICATION: Chest pain. Headache. COMPARISON: 07/17/2023. FINDINGS: Normal heart size and pulmonary vascularity. No dense consolidation, pleural effusion or pneumothorax. No acute osseous findings. IMPRESSION: Negative chest. Dictated by: Dictated on workstation # [id number]
[2023-08-21] MEDS ORDERED: ONDA4TAB11 SL (20:29)
== END 2023-08-21 20:33 | disposition home or self-care (01) ==
LOC: EDUNIT# 19:11 → ER 19:14
DX: B34.9 Viral infection, unspecified (principal); R07.2 Precordial pain; R06.02 Shortness of breath; R63.0 Anorexia; R05.8 Other specified cough; R06.2 Wheezing; R53.83 Other fatigue; R45.4 Irritability and anger; R50.9 Fever, unspecified; Z87.891 Personal history of nicotine dependence; Z20.822 Contact with and (suspected) exposure to COVID-19
CPT/HCPCS: 36415; 71045; 80053; 81000; 83690; 83735; 83874; 84484; 84703; 85025; 85610; 85730; 87636; 93005; 93041

== ENCOUNTER 2023-10-09 10:15 | Emergency (ER) | payer BC ==
[~2023-10-09] VITALS: Ht 167.7 cm; Wt 70.5 kg
[~2023-10-09 10:15] MED LIST changes: +NEBI5TAB2 PO; -NEBI5TAB8 PO
[2023-10-09] MEDS ORDERED: NS IV 1000 ML 1,000 ML IV SCH (10:30)
[2023-10-09] MEDS ORDERED: KETOROLAC INJ 15 MG/ML VIAL IVP ONE (10:30)
--- NOTE | 2023-10-09 10:32 | ED Headache ---
General Chief Complaint: Head/Cervical Problems Stated Complaint: HEADACHE | BLURRY VISION Source: patient Exam Limitations: no limitations History of Present Illness Date Seen by Provider: Oct 09, 2023 Time Seen by Provider: 10:16 Initial Comments 33-year-old female presents for headache. Symptoms started yesterday and have progressed. She has a history of migraine headaches but states this is different than her normal migraine headache. She states she has blurred vision and a metallic taste in her mouth and feels "foggy brain." She denies any fevers or chills. Headache starts at the base of her skull and radiates upward and becomes diffuse. No chest pain, cough, URI type symptoms. No abdominal pain. She has had a hysterectomy. All other systems reviewed and negative except documented per HPI. Voice recognition software was used to help create this chart Allergies and Home Medications Allergies Coded Allergies: Penicillins (Unverified Allergy, Mild, PT ABLE TO TAKE ANCEF, 10/09/23) divalproex sodium (Verified Allergy, Unknown, 10/09/23) levofloxacin (Verified Adverse Reaction, Intermediate, 10/09/23) STATES MAKES HER FEEL LIKE HER THROAT IS CLOSING, MAKES IT HARD TO SPEAK diclofenac (Unverified Adverse Reaction, Unknown, Nausea, 10/09/23) GI upset, "Stomach problems" Patient Home Medication List Home Medication List Reviewed: Yes Cariprazine Hydrochloride (Vraylar) 1.5 Mg Capsule, (Reported) Entered as Reported by: ALLISON CHAPIN on 07/23/212134 Clonazepam (Clonazepam) 0.5 Mg Tablet, (Reported) Entered as Reported by: ALLISON CHAPIN on 07/23/212134 Doxycycline Monohydrate (Doxycycline Monohydrate) 100 Mg Tablet, 100 MG PO BID Prescribed by: VERONICA CHAVARRIA on 07/17/232108 Ondansetron (Ondansetron Odt) 4 Mg Tab.rapdis, 4 MG SL Q4H PRN for NAUSEA/VOMITING Prescribed by: Raffy Herring on 11/21/221756 Ondansetron (Ondansetron Odt) 4 Mg Tab.rapdis, 4 MG SL Q4H PRN for NAUSEA/VOMITING Prescribed by: VERONICA CHAVARRIA on 08/21/232028 Potassium Chloride (Potassium Chloride) 10 Meq Capsule.er, 10 MEQ PO DAILY Prescribed by: Raffy Herring on 11/21/22 1757 Prednisone (Prednisone) 20 Mg Tab, 60 MG PO DAILY Prescribed by: Laura Blanchard on 09/15/22 173 Prednisone (Prednisone) 10 Mg Tab.ds.pk, 10 MG PO DAILY Prescribed by: VERONICA CHAVARRIA on 07/17/232108 Prochlorperazine Maleate (Prochlorperazine Maleate) 10 Mg Tablet, 10 MG PO Q8H PRN for HEADACHE Prescribed by: Raffy Herring on 11/21/22 180 Quetiapine Fumarate (Quetiapine Fumarate) 50 Mg Tablet, (Reported) Entered as Reported by: TOM ARDON on 09/19/20 170 Review of Systems Review of Systems Constitutional: see HPI Past Zbgvcyy-Jlogmv-Zsdjuj Hx Patient Social History Tobacco Use?: No Use of E-Cig and/or Vaping dev: No Substance use?: No Alcohol Use?: No Immunizations Up To Date Tetanus Booster (TDap): Less than 5yrs PED Vaccines UTD: Yes First/Initial COVID19 Vaccinat: 2020- ONE DOSE Second COVID19 Vaccination Master: 2020- ONE DOSE Third COVID19 Vaccination Date: 2020- ONE DOSE Seasonal Allergies Seasonal Allergies: No Past Medical History Surgery/Hospitalization HX: HYSTERECTOMY, TONSILECTOMY, APPENDECTOMY, ENDOMETREOSIS, ANXIETY Surgeries: Yes (LAPAROTOMY; HYST ; LSO) Abdominal, Adenoidectomy, Appendectomy, Hysterectomy, Oophorectomy, Tonsillectomy Respiratory: Yes Asthma Cardiac: Yes (Hx. 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 Sexually Transmitted Disease: No HIV/AIDS: No Genitourinary: No Gastrointestinal: No Musculoskeletal: Yes (CHRONIC OPIATE USE; MULITPLE VARIOUS CHRONIC PAIN COMPLAINTS) Degenerate Disk Disease, Arthritis, Back Injury, Scoliosis, Chronic Back Pain Endocrine: No HEENT: Yes (CHRONIC DENTAL PAIN/EXTENSIVE DENTAL DECAY) Cancer: No Psychosocial: Yes (EXTENSIVE PSYCH HISTORY;BENZODIAZEPINE ABUSE) Pseudo Seizures, Anxiety, PTSD, Bipolar, Depression Integumentary: No Blood Disorders: No Adverse Reaction/Blood Tranf: No Family Medical History Family history: Hypertension (mother, MGM, and PGM) Heart disease (mother and father) History of - anemia (family Hx of blood transfusions) Infertile Kidney disease (MGM) Physical Exam Vital Signs Capillary Refill : Height, Weight, BMI Height: 5'6.00" Weight: 130lbs. 0.0oz. 58.355148jo; 24.00 BMI Method:Stated General Appearance: WD/WN, no apparent distress HEENT: PERRL/EOMI, normal ENT inspection, TMs normal, pharynx normal Neck: non-tender, supple Cardiovascular: regular rate, rhythm, no murmur Respiratory: chest non-tender, lungs clear, normal breath sounds, no respiratory distress, no accessory muscle use Gastrointestinal: normal bowel sounds, non tender, soft Extremities: normal range of motion, non-tender, normal inspection, normal capillary refill Psychiatric: alert, oriented x 3 [place] Nerves: normal speech, PERRL Coordination/Gait: normal finger to nose, normal gait Motor/Sensory: no motor deficit, no sensory deficit, no pronator drift Skin: normal color, warm/dry Progress/Results/Core Measures Results/Orders Lab Results Laboratory Tests Test 10/09/23 10:30 Range/Units White Blood Count 8.8 4.3-11.0 10^3/uL Red Blood Count 5.25 H 3.80-5.11 10^6/uL Hemoglobin 15.3 11.5-16.0 g/dL Hematocrit 46 35-52 % Mean Corpuscular Volume 87 80-99 fL Mean Corpuscular Hemoglobin 29 25-34 pg Mean Corpuscular Hemoglobin Concent 34 32-36 g/dL Red Cell Distribution Width 12.2 10.0-14.5 % Platelet Count 232 130-400 10^3/uL Mean Platelet Volume 10.2 9.0-12.2 fL Immature Granulocyte % (Auto) 0 % Neutrophils (%) (Auto) 58 42-75 % Lymphocytes (%) (Auto) 33 12-44 % Monocytes (%) (Auto) 7 0-12 % Eosinophils (%) (Auto) 2 0-10 % Basophils (%) (Auto) 0 0-10 % Neutrophils # (Auto) 5.1 1.8-7.8 10^3/uL Lymphocytes # (Auto) 2.9 1.0-4.0 10^3/uL Monocytes # (Auto) 0.6 0.0-1.0 10^3/uL Eosinophils # (Auto) 0.2 0.0-0.3 10^3/uL Basophils # (Auto) 0.0 0.0-0.1 10^3/uL Immature Granulocyte # (Auto) 0.0 0.0-0.1 10^3/uL Sodium Level 137 135-145 MMOL/L Potassium Level 3.4 L 3.6-5.0 MMOL/L Chloride Level 102 98-107 MMOL/L Carbon Dioxide Level 24 21-32 MMOL/L Anion Gap 11 5-14 MMOL/L Blood Urea Nitrogen 12 7-18 MG/DL Creatinine 0.83 0.60-1.30 MG/DL Estimat Glomerular Filtration Rate 95 BUN/Creatinine Ratio 14 Glucose Level 120 H 70-105 MG/DL Calcium Level 9.4 8.5-10.1 MG/DL My Orders Orders - JARVIS ABBOTT DO Basic Metabolic Panel (10/09/23 10:27) Ct Head Wo (10/09/23 10:27) Cbc And Automated Diff (10/09/23 10:27) Ed Iv/Invasive Line Start (10/09/23 10:27) Ns Iv 1000 Ml (Ns Iv 1000 Ml) (10/09/23 10:30) Ketorolac Injection (Ketorolac Injection (10/09/23 10:30) Medications Given in ED Current Medications Medications Dose Ordered Sig/Antonia Route Start Time Stop Time Status Last Admin Dose Admin Ketorolac Tromethamine 15 mg ONCE ONCE IVP 10/09/23 10:30 10/09/23 10:31 DC 10/09/23 10:47 15 MG Departure Impression Primary Impression: Migraine headache Qualified Codes: G43.909 - Migraine, unspecified, not intractable, without status migrainosus Disposition: 01 HOME, SELF-CARE Condition: Stable Departure-Patient Inst. Referrals: [facility] [place] Primary Care Physician Patient Instructions: Migraines in adults Add. Discharge Instructions: Continue to alternate ibuprofen and Tylenol as needed for headaches. Add Benadryl 50 mg every 6 hours as needed as well. Increase your fluids at home and rest. Return to the emergency department for any severe concerns. Follow- up with her primary doctor for any nonemergent needs. All discharge instructions reviewed with patient and/or family. Voiced understanding. JARVIS ABBOTT DO Oct 09, 2023 10:32
[2023-10-09 10:42] LABS: BASOPHILS % (AUTO) 0 % (0-10); EOSINOPHILS # (AUTO) 0.2 10^3/uL (0.0-0.3); EOSINOPHILS % (AUTO) 2 % (0-10); HEMATOCRIT 46 % (35-52); HEMOGLOBIN 15.3 g/dL (11.5-16.0); LYMPHOCYTES # (AUTO) 2.9 10^3/uL (1.0-4.0); LYMPHOCYTES % (AUTO) 33 % (12-44); MEAN CORPUSCULAR HEMOGLOBIN 29 pg (25-34); MEAN CORPUSCULAR HGB CONC 34 g/dL (32-36); MEAN CORPUSCULAR VOLUME 87 fL (80-99); MEAN PLATELET VOLUME 10.2 fL (9.0-12.2); MONOCYTES # (AUTO) 0.6 10^3/uL (0.0-1.0); MONOCYTES % (AUTO) 7 % (0-12); NEUTROPHILS # (AUTO) 5.1 10^3/uL (1.8-7.8); NEUTROPHILS % (AUTO) 58 % (42-75); PLATELET COUNT 232 10^3/uL (130-400); WHITE BLOOD COUNT 8.8 10^3/uL (4.3-11.0)
[2023-10-09 10:49] LABS: POTASSIUM 3.4 MMOL/L (3.6-5.0)
[2023-10-09 10:50] LABS: CALCIUM 9.4 MG/DL (8.5-10.1)
[2023-10-09 10:55] LABS: CREATININE SERUM 0.83 MG/DL (0.60-1.30)
--- NOTE | 2023-10-09 10:55 | Diagnostic Imaging Report ---
PROCEDURE: CT head without contrast. TECHNIQUE: Multiple contiguous axial images were obtained through the brain without the use of intravenous contrast. Auto Exposure Controls were utilized during the CT exam to meet ALARA standards for radiation dose reduction. INDICATION: Worst headache of life with visual disturbance. COMPARISON: 10/31/2022. CT HEAD: CT images of the head were obtained. FINDINGS: Ventricles and sulci are within normal limits for size. There is no intracranial hemorrhage identified. There is no abnormal mass effect or shift of midline structures. IMPRESSION: Unremarkable CT of the head. Dictated by: Dictated on workstation # [id number]
[2023-10-09 11:12] VITALS: BP 146/91
== END 2023-10-09 11:16 | disposition home or self-care (01) ==
LOC: EDUNIT# 10:15 → ER 10:16
DX: G43.909 Migraine, unspecified, not intractable, without status migrainosus (principal); Z88.6 Allergy status to analgesic agent
CPT/HCPCS: 36415; 70450; 80048; 85025